=== PATIENT | female | born 1990 | race Caucasian/White ===

== ENCOUNTER 2023-01-17 10:35 | Outpatient (OUT) | payer OTHER, SELFPAY ==
--- NOTE | 2023-01-17 10:27 | ECG_ITS ---
[facility] Test Date: 2023-01-17 Pat Name: Ashly Mehta Department: Room: - Gender: Female Global Mobility Specialist: : 1990 Requested By: TOBIAS BARBA Order Number: [id number] Reading MD: GERRY ARENAS Measurements Intervals [place] Rate: 94 P: 29 CA: 158 QRS: 9 QRSD: 87 T: 30 QT: 350 QTc: 439 Interpretive Statements SINUS RHYTHM MODERATE VOLTAGE CRITERIA FOR LVH, CONSIDER NORMAL VARIANT [MEETS CRITERIA IN ONE OF: R(aVL), S(V1), R(V5), R(V5/V6)+S(V1)] NONSPECIFIC T-WAVE ABNORMALITY No previous ECG available for comparison Electronically Signed On 01-18-2023 15:39:31 EDT by GERRY ARENAS
== END 2023-01-17 10:36 ==
PROVIDERS: PCP Family Medicine; Visit Provider Obstetrics & Gynecology
DX: Z01.810 Encounter for preprocedural cardiovascular examination (principal); N92.0 Excessive and frequent menstruation with regular cycle; E28.2 Polycystic ovarian syndrome; N93.9 Abnormal uterine and vaginal bleeding, unspecified
CPT/HCPCS: 93005

== ENCOUNTER 2023-01-31 06:08 | Day surgery (SDC) | payer OTHER, SELFPAY ==
[2023-01-17 10:56] VITALS: BP 138/82; PULSE 105; RESP 20; TEMP 36.6; O2SAT 98; BMI 56.2
[2023-01-31] VITALS (9 sets, daily range): BP systolic 108–148; BP diastolic 53–90; PULSE 86–110; RESP 16–18; TEMP 35.7–37; O2SAT 93–98; BMI 56.1
[2023-01-31 06:21] LABS: Basophils Absolute Auto 0.1 10^3/uL (0.0-0.1); Basophils Percent Auto 0.7 % (0.2-2.0); Eosinophils Absolute Auto 0.2 10^3/uL (0.0-0.7); Hematocrit 35.9 % (36.0-48.0); Hemoglobin 11.1 g/dL (12.0-16.0); Immature Granulocytes Abs Auto 0.02 10^3/uL (0.00-0.03); Immature Granulocytes Pct Auto 0.2 % (0.0-0.5); Lymphocytes Absolute Auto 3.3 10^3/uL (1.2-3.8); Lymphocytes Percent Auto 41.3 % (20.5-60.0); Mean Corpuscular HGB Conc 30.9 g/dL (29.9-35.2); Mean Corpuscular Hemoglobin 26.2 pg (26.7-34.0); Mean Corpuscular Volume 84.7 fL (81.0-99.0); Mean Platelet Volume 9.5 fL (9.5-13.5); Monocytes Absolute Auto 0.4 10^3/uL (0.3-0.8); Monocytes Percent Auto 5.5 % (1.7-12.0); Neutrophils Absolute Auto 4.1 10^3/uL (1.4-6.5); Neutrophils Percent Auto 50.3 % (43.0-75.0); Platelet Count 277 10^3/uL (150-450); Red Blood Count 4.24 10^6/uL (4.20-5.40); Red Cell Distribution Width 13.3 % (11.0-15.0); White Blood Count 8.1 10^3/uL (4.0-11.0)
[2023-01-31 06:48] LABS: HCG Quantitative <1 mIU/mL
--- NOTE | 2023-01-31 13:37 | OP_ITS ---
OPERATION DATE: ??01/31/2023 PROCEDURE:? D&C hysteroscopy with Myosure. PREOPERATIVE DIAGNOSIS:? Menorrhagia. POSTOPERATIVE DIAGNOSIS:? Menorrhagia. ANESTHESIA:? General. SURGEON:? Marko Oscar D.O. DISTANCE LEARNING ADMINISTRATOR:? None. FINDINGS:? Fluffy appearing endometrium.? No gross evidence of polyps, fibroids or malignancy.? SPECIMEN:? Endometrial curettings. PROCEDURE:? The patient was taken back to the Operating Room where she was prepped and draped in normal sterile fashion after being placed under general anesthesia without difficulty. She was also placed in the dorsal lithotomy position. A weighted speculum was placed in the patient's vagina. The anterior lip of the cervix was identified and grasped with a single tooth tenaculum. The patient's uterus was then sounded roughly to 9 cm. The patient was then gently dilated using Hegar dilators. The hysteroscope was passed through the patient's cervix into the uterus. Both ostia were identified. Slightlythickened appearing endometrium. No gross evidence of malignancy. Please note that the MyoSure apparatus was placed through the hysteroscope under direct visualization. The apparatus was engaged and endometrial curettings were removed under direct visualization. The MyoSure was then removed from the scope. The hysteroscope was then removed from the patient's uterus. The endometrial curettings were sent out to pathology. The single tooth tenaculum was then removed from the patient's anterior lip of the cervix where excellent hemostasis was noted. All instruments were removed from the patient's vagina. The patient tolerated the procedure well. Sponge, lap and needle counts were correct times two. The patient was taken to the Recovery Room in stable condition. [facility]
== END 2023-01-31 09:34 | disposition home or self-care (01) ==
PROVIDERS: PCP Family Medicine; Visit Provider Obstetrics & Gynecology
PROC: (CPT 58558; principal; 2023-01-31 07:30)
DX: N85.02 Endometrial intraepithelial neoplasia [EIN] (principal); N92.0 Excessive and frequent menstruation with regular cycle; N93.9 Abnormal uterine and vaginal bleeding, unspecified; E28.2 Polycystic ovarian syndrome; J45.909 Unspecified asthma, uncomplicated; I10 Essential (primary) hypertension; G40.909 Epilepsy, unspecified, not intractable, without status epilepticus; F41.9 Anxiety disorder, unspecified; R73.03 Prediabetes; E66.01 Morbid (severe) obesity due to excess calories; Z68.43 Body mass index [BMI] 50.0-59.9, adult; Z79.899 Other long term (current) drug therapy; Z79.84 Long term (current) use of oral hypoglycemic drugs
CPT/HCPCS: 58558; 36415; 84702; 85025; 88305; J2704

== ENCOUNTER 2023-06-25 07:14 | Outpatient (OUT) | payer OTHER, SELFPAY ==
--- NOTE | 2023-06-25 08:03 | PM.CN ---
Consult Note: HPI Data of Consult Patient: new to practice Requesting Physician: Vera Blanco NP Primary Care Provider: CHRIS LOPEZ Consult Narrative Reason for consult: establish care Narrative: Ashly Mehta a pleasant 32 year old female presents for evaluation and management of low back pain. Patient has noticed this low back pain since a fall at work in 2018 where she injured her ankle and had to wear a boot, noticed the pain started after she stopped wearing the boot. Today rating pain 2/10 in low back, is intermittent. Nate increased with pushing, pulling, standing, walking, activity, decreased with sleep sitting and lying down. No numbness tingling or weakness. Aleve PRN without relief, PT last over a year ago. Has tried chiropractor care without success. Currently on cymbalta 120mg qd, gabapentin 300mg BID, tylenol 1500mg BID-TID. cc:: CC: Vera Blanco NP Review of Systems ROS Status of ROS 10 or more systems reviewed and unremarkable except as noted in history and below Musculoskeletal Reports: back pain PFSH PFSH Medical History Abnormal uterine bleeding (AUB) ?N93.9 - Abnormal uterine and vaginal bleeding, unspecified (ICD-10) Anemia ?D64.9 - Anemia, unspecified (ICD-10) Anxiety ?F41.9 - Anxiety disorder, unspecified (ICD-10) Arthritis ?M19.90 - Unspecified osteoarthritis, unspecified site (ICD-10) Asthma ?J45.909 - Unspecified asthma, uncomplicated (ICD-10) Back pain ?M54.9 - Dorsalgia, unspecified (ICD-10) COVID-19 ?U07.1 - COVID-19 (ICD-10) Depression ?F32.A - Depression, unspecified (ICD-10) GERD (gastroesophageal reflux disease) ?K21.9 - Gastro-esophageal reflux disease without esophagitis (ICD-10) Herpes genitalia ?A60.00 - Herpesviral infection of urogenital system, unspecified (ICD-10) Hypertension ?I10 - Essential (primary) hypertension (ICD-10) Menorrhagia ?N92.0 - Excessive and frequent menstruation with regular cycle (ICD-10) Palpitations ?R00.2 - Palpitations (ICD-10) PCOS (polycystic ovarian syndrome) ?E28.2 - Polycystic ovarian syndrome (ICD-10) Prediabetes ?R73.03 - Prediabetes (ICD-10) Seizures ?R56.9 - Unspecified convulsions (ICD-10) Sleep apnea ?G47.30 - Sleep apnea, unspecified (ICD-10) Surgical History History of cholecystectomy ?Z90.49 - Acquired absence of other specified parts of digestive tract (ICD-10) History of colposcopy ?Z98.890 - Other specified postprocedural states (ICD-10) History of laparoscopy ?Z98.890 - Other specified postprocedural states (ICD-10) History of wisdom tooth extraction ?K08.409 - Partial loss of teeth, unspecified cause, unspecified class (ICD-10) Family History (Updated 01/17/23 @ 11:05 by Jackie Bassett NP) Other Family history of heart disease Family history of stroke Social History (Updated 01/17/23 @ 11:05 by Jackie Bassett NP) Within the past year, how often did you have a drink containing alcohol: monthly or less 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 Highest level of school completed/degree received: Associate degree: occupational, technical, vocational program Meds Home Medications and Allergies Home Medications Medication Instructions Recorded Confirmed Type albuterol sulfate 90 mcg/actuation 2 inh inhalation Q6H PRN shortness 01/17/23 01/31/23 History aerosol inhaler (ProAir HFA) of breath or wheezing duloxetine 30 mg capsule,delayed 120 mg PO QDAY 01/17/23 01/31/23 History release gabapentin 300 mg capsule 300 mg PO Q12H PRN pain 01/17/23 01/31/23 History lisinopril 20 mg tablet 20 mg PO DAILY 01/17/23 01/31/23 History metformin 500 mg tablet 500 mg PO BID 01/17/23 01/31/23 History Allergies Allergy/AdvReac Type Severity Reaction Status Date / Time amoxicillin Allergy Rash Verified 01/31/23 06:45 cefaclor Allergy Rash Verified 01/31/23 06:45 erythromycin base Allergy Hives Verified 01/31/23 06:45 Exam Constitutional Documenting provider has reviewed patient's vital signs: yes Common normals: no apparent distress, oriented x3, healthy appearing, alert and well nourished General appearance: cooperative HENMT Common normals: normocephalic, hearing grossly normal bilaterally and moist oral mucous membranes Head and scalp: normocephalic Eye Common normals: PERRL Pupil: PERRL Neck & C-Spine Common normals: full ROM General: normal visual inspection Chest Common normals: inspection of chest normal Respiratory Common normals: normal respiratory effort, no retractions and no use of accessory muscles Back & Pelvis Lumbar spine/lower back: ROM limited, pain with ROM and straight leg raise negative bilaterally Sacroiliac joints: SI joint(s) abnormal (bilateral marissa, thigh thrust) Other: bilateral facet loading, right worse than left pain over L4-5 L5-S1 facets Neuro Common normals: oriented x3, CN's II-XII intact bilaterally, moves all extremities, no focal motor deficits, no sensory deficits noted and deep tendon reflexes 2+ bilaterally Sensorium/orientation: alert Motor exam: strength 5/5 throughout and no movement abnormalities noted Psych Common normals: mental status grossly normal, thought process normal, cooperative, affect normal, speech normal and activity/motor behavior normal Speech: normal speech Thought process: normal thought process Results Additional Findings Additional findings: I have checked an OARRS report on this patient today and there are no aberrancies noted in the prescribing history.?? A drug screen was completed and reviewed within the last year, and if there has not been a drug screen completed we ordered one today to monitor higher risk, state monitored pain medication use. As part of providing excellent, safe, comprehensive care, the following was completed at our patient's visit: 1. A medication reconciliation and review to ensure accurate knowledge of current/active medications, including asking our patients to inform us about any [id number] medications or herbal remedies/nutritional supplements/alternative remedies. 2. A review to specifically ensure our patients have had annual screening for: elevated body mass index (BMI), tobacco use, screening for depression, and screening for unhealthy alcohol use. When screening is concerning, patients are provided with education and the specific recommendation to discuss the concerning health issue and treatment options with their primary care provider. Assessment and Plan Assessment and Plan (1) Lumbar spondylosis: Assessment and Plan: The patient has had over 3 months of moderate to severe low back pain with functional impairment and inadequate response to conservative care including NSAIDS (unless there are contraindication such as concurrent blood thinners), multiple oral or topical pain medications, and home exercise program/physical therapy.?Patient has completed >6 weeks of guided home exercise program and/or formal physical therapy program without relief of their symptoms.? I have reviewed the imaging of the lumbar spine and no red flags were identified.? The imaging reveals radiographic findings consistent with lumbar spondylosis The Oswestry Disability Index was completed, and the patient scored a 27%.? The patient noted the following:?? moderate to severe pain, pain with standing and walking, pain limiting heavy weights We discussed the risks and benefits of the procedure with the patient, and we are NOT planning on using sedation as outlined in the guidelines from Medicare unless there is a documented reason that sedation would be strongly recommended.?? ?The procedure will be completed with fluoroscopic guidance.? (2) Back pain: (3) GERD (gastroesophageal reflux disease): Assessment and Plan: limit NSAIDs (4) Obesity: Assessment and Plan: The patient was counseled that proper dietary changes and consistent participation in a home exercise plan can lead to weight loss. Weight loss can help to improve functionality in patients with chronic pain.? (5) Encounter for medication monitoring: Plan based on physical exam and xray imaging bilateral L4-5 L5-S1 MBB x2 under fluoroscopy working towards thermal RFA UDS today ACCOUNTS PAYABLE CLERK reviewed and signed continue HEP f/u 1 week after injection
== END 2023-06-25 07:15 | disposition home or self-care (01) ==
PROVIDERS: PCP Nurse Practitioner Family; Visit Provider Nurse Practitioner
DX: M47.816 Spondylosis without myelopathy or radiculopathy, lumbar region (principal); M54.9 Dorsalgia, unspecified; K21.9 Gastro-esophageal reflux disease without esophagitis; E66.9 Obesity, unspecified; Z51.81 Encounter for therapeutic drug level monitoring
CPT/HCPCS: G0463

== ENCOUNTER 2023-07-21 08:14 | Day surgery (SDC) | payer OTHER, SELFPAY ==
[2023-07-21 08:41] LABS: HCG Qualitative NEGATIVE (NEGATIVE)
[2023-07-21 09:10] VITALS: BP 139/82; PULSE 92; RESP 16; TEMP 36.7; O2SAT 98
[2023-07-21 09:17] LABS: Glucometer 100 mg/dL (74-106)
[2023-07-21 10:04] VITALS: BP 189/97; PULSE 94; RESP 18; O2SAT 97
[2023-07-21 10:05] VITALS: BP 118/56; PULSE 86; RESP 18; O2SAT 97
[2023-07-21] MEDS: LIDOCAINE HCL 2% PF 100 MG/5 ML VIAL 2 ML INJ (10:07)
[2023-07-21] MEDS: BUPIVACAINE HCL 0.25% PF 25 MG/10 ML VIAL 8 ML INJ (10:07)
--- NOTE | 2023-07-21 10:07 | W.PM.PROCNOT ---
Date of procedure: 07/21/23 Pre-op diagnosis: Lumbar spondylosis Post-op diagnosis: same as pre-op Procedure: Procedure: Bilateral L4-5, L5-S1 medial branch block Medications: Bupivacaine 0.25% 5cc The patient was seen and examined in the preoperative holding area.? An informed consent was obtained and placed on the chart.? The patient was brought to the medical procedure unit and placed in the prone position.? A timeout was completed verifying correct patient, procedure site, positioning, plan, and special equipment.? Using aseptic technique, the needle was placed at left L4. Under direct fluoroscopic visualization a Quincke-tipped spinal needle was advanced to the junction of the superior articulating process with the transverse process at the designated medial branch segment.? Preceded by negative aspiration, the above-mentioned injectate was placed in 1 mL aliquots.? The procedure was repeated at left L5, S1.? The needle was removed and insertion site was covered. The same procedure, at the same levels, was completed on the right side. The patient was taken to the postprocedural recovery area and monitored for an appropriate length of time before found suitable for discharge in the company of a responsible adult. Anesthesia: Local Surgeon: Bud Combs Pathology: none sent Condition: stable Disposition: no change
== END 2023-07-21 10:11 | disposition home or self-care (01) ==
PROVIDERS: PCP Nurse Practitioner Family; Visit Provider Anesthesiology
DX: M47.816 Spondylosis without myelopathy or radiculopathy, lumbar region (principal)
CPT/HCPCS: 36415; 64493; 64494; 84703

== ENCOUNTER 2023-08-14 11:10 | Outpatient (OUT) | payer OTHER, SELFPAY ==
--- OUTSIDE RECORDS SUMMARY | 2023-08-14 11:29 | XMS_ITS | CCD ---
Author Name Unknown Address [address] [facility] [address] [place] [address] Organization [facility] Care Team Providers Care Checkerer Hand Name Role Phone BRENT KINNEY Referring Unavailable BRENT KINNEY Attending Unavailable BRENT KINNEY Admitting Unavailable Oma Michelle Unavailable VIOLA, DR NUR Consulting Unavailable THATCHER, DR NUR Admitting Unavailable THATCHER, DR NUR Primary Care Unavailable THATCHER, DR NUR Attending Unavailable ZIEBER, DR SUGEY Ibrahim Consulting Unavailable FREDA ., DR COLLADO Admitting Unavailable HOUSE, DR NUR Primary Care Unavailable FREDA ., DR COLLADO Attending Unavailable FREDA ., DR COLLADO Consulting Unavailable THATCHER, DR NUR Consulting Unavailable THATCHER, DR NUR Primary Care Unavailable HOUSE, DR NUR Admitting Unavailable HOUSE, DR NUR Attending Unavailable FREDA ., DR COLLADO Admitting Unavailable HOUSE, DR NUR Primary Care Unavailable FREDA ., DR COLLADO Attending Unavailable FREDA ., DR COLLADO Consulting Unavailable ZIEBER, DR SUGEY Ibrahim Consulting Unavailable FREDA ., DR COLLADO Admitting Unavailable HOUSE, DR NUR Primary Care Unavailable FREDA ., DR COLLADO Attending Unavailable FREDA ., DR COLLADO Consulting Unavailable HOUSE, DR NUR Primary Care Unavailable FREDA ., DR COLLADO Attending Unavailable FREDA ., DR COLLADO Consulting Unavailable FREDA ., DR COLLADO Admitting Unavailable Casandra Hassan Unavailable Nely Cruz Unavailable Celio Mullins Unavailable Manisha Marc Unavailable [phone] ROSITA Marc Primary Care Provider ROSITA Marc Attending Provider [phone] DO Celio Mullins Attending Provider [phone] MELA ANDERSON Attending Unavailable Manisha Marc Primary Care Unavailable Celio Mullins Admitting Unavailable Celio Mullins Attending Unavailable Manisha Marc Primary Care Unavailable Edward Gilmore Admitting Unavailab le Edward Gilmore Attending Unavailab le Manisha Marc Admitting Unavailable Manisha Marc Primary Care Unavailable Manisha Marc Attending Unavailable Manisha Marc Primary Care Unavailable Celio Mullins Admitting Unavailable Celio Mullins Attending Unavailable Garret CROWLEY, Bud Denis Attending Unavailable Allergies Allergy Classification Reported Allergen(s) Allergy Type Date of Onset Reaction(s) Facility (20 sources) Amoxicillin; Translations: [AMOXICILLIN] Drug Allergy 07-08-20 16 rash [facility] Repository (3 sources) Cefaclor; Translations: [CEFACLOR] Drug Allergy 04-14-20 15 Unknown Reaction [facility] Repository (17 sources) Erythromycin; Translations: [ERYTHROMYCIN] Drug Allergy 04-14-20 15 hives [facility] Repository (17 sources) Cefaclor; Translations: [Ceclor] Drug Allergy 04-17-20 [address] [facility] Repository (2 sources) Erythromycin Drug Allergy 04-17-20 15 Unknown Reaction [facility] Repository (2 sources) Cephalosporins (Antibiotic); Translations: [Cephalosporins] Allergy to substance 12-10-19 Unknown Reaction [facility] (2 sources) Lactulose; Translations: [lactulose] Drug Allergy 02-12-20 Unknown Reaction [facility] (1 source) Erythromycin Drug Allergy 02-12-20 [facility] Repository Medications Current Medications Medication Drug Class(es) Dates Sig (Normalized) Sig (Original) [id number] 200 actuat albuterol 0.09 mg/actuat metered dose inhaler (20 sources) beta2-Adrenergic Agonist Start: 06-29-2023 take 2 puff(s) by inhalation four times daily as needed Albuterol Sulfate HFA 108 (90 Base) MCG/ACT 2 puffs Inhalation 4 times a day prn Jun, Active Start: 06-29-2023 take 2 puff(s) by in halation four times daily as needed Albuterol Sulfate HFA 108 (90 Base) MCG/ACT 2 puffs Inhalation 4 times a day prn Jun, Not-Taking Start: 06-17-2021 take 2 puff(s) by in halation four times daily as needed Albuterol Sulfate HFA 108 (90 Base) MCG/ACT 2 puffs Inhalation qid prn May, Active Start: 02-12-2020 take 1 puff(s) by in halation every six hours Albuterol Sulfate Active 2 PUFF INHALATION Q6H February 11, 2020 11:00pm take 1 puff(s) by in halation every four hours as needed Ventolin HFA 108 (90 Base) MCG/ACT 1 puff as needed Inhalation every 4 hrs Active doxycycline hyclate 100 mg oral tablet (3 sources) Tetracycline-class Drug Start: 06-29-2023 take 1 tablet by mouth every twelve hours Doxycycline Hyclate 100 MG 1 tablet Orally Twice a day for 10 day(s) Jun, Active DULoxetine 30 mg delayed release oral capsule (17 sources) Serotonin and Norepinephrine Reuptake Inhibitor Start: 02-17-2020 take 90 mg by mouth once daily at bedtime Duloxetine Active 90 MG PO Daily at bedtime 90 February 16, 2020 11:00pm take 2 capsules by m outh every twenty-four hours Cymbalta 60 MG 2 capsule Orally Once a day for 90 days Active Cymbalta Active fluticasone propionate 0.05 mg/actuat metered dose nasal spray (3 sources) Corticosteroid Start: 06-29-2023 take 2 spray(s) nasal route once daily Fluticasone Propionate 50 MCG/ACT 2 sprays Nasally Once a day for 14 day(s) Jun, Active gabapentin 300 mg oral capsule (11 sources) Anti-epileptic Agent Start: 02-12-2020 take 300 mg by mouth three times daily Gabapentin Active 300 MG PO Three times daily February 11, 2020 11:00pm take 1 capsule by mo ut once daily as needed Gabapentin 300 MG 1 capsule Orally Once a day PRN for 30 days PRN Active hydrOXYzine pamoate 25 mg oral capsule (16 sources) Antihistamine Start: 12-07-2021 take 25 mg by mouth three times daily Hydroxyzine Pamoate Active 25 MG PO Three times daily December 06, 2021 11:00pm Vistaril 25 MG 1 Capsule prn Orally 2-3 times per day Active take 1 capsule by mouth every ei ght hours Vistaril 25 MG 1 capsule as needed Orally every 8 hrs Not-Taking lisinopril 20 mg oral tablet (17 sources) Angiotensin Converting Enzyme Inhibitor Start: 12-07-2021 take 20 mg by mouth once daily Lisinopril Active 20 MG PO Daily December 06, 2021 11:00pm Lisinopril Activ e melatonin 10 mg extended release oral tablet (10 sources) take 1 tablet by miranda th once daily at bedtime as needed Melatonin 10 MG 1 tablet at bedtime as needed Orally Once Daily PRN Active Melatonin PRN Ac tive metFORMIN hydrochloride 500 mg oral tablet (12 sources) Biguanide Start: 02-12-2020 take 500 mg by mouth twice daily Metformin Active 500 MG PO Twice daily February 11, 2020 11:00pm Metformin & Diet Manage Prod (5 sources) Metformin & Diet Manage Prod Active Multivitamin preparation (11 sources) Start: 12-07-2021 take 1 tablet by mouth once daily Multivitamin Active 1 TAB PO Daily December 06, 2021 11:00pm Multivitamin Act rafal nitrofurantoin, macrocrystals 25 mg / nitrofurantoin, monohydrate 75 mg oral capsule (1 source) Nitrofuran Antibacterial Start: 05-31-2021 take 1 capsule by mouth every twelve hours Macrobid 100 MG 1 cap(s) Orally bid for 5 day(s) May, Active ondansetron 4 mg oral tablet (2 sources) Serotonin-3 Receptor Antagonist Start: 07-07-2023 take 1 tablet by mouth three times daily as needed Zofran 4 MG 1 tablet Orally tid prn ODT Jun, Active phenazopyridine hydrochloride 200 mg oral tablet (1 source) Start: 05-31-2021 take 1 tablet by mouth every eight hours Pyridium 200 MG 1 tablet after meals Orally Three times a day for 2 day(s) May, Active valACYclovir 1000 mg oral tablet (17 sources) Herpesvirus Nucleoside Analog DNA Polymerase Inhibitor, Herpes Simplex Virus Nucleoside Analog DNA Polymerase Inhibitor, Herpes Zoster Virus Nucleoside Analog DNA Polymerase Inhibitor Start: 02-12-2020 Valacyclovir (Valtrex) 1 gram tablet Active 1000 MG PO Daily February 11, 2020 11:00pm Start: 02-12-2020 End: 02-12-2020 take 1 mg by mouth once daily Valacyclovir Discontinue d 1 MG PO Daily February 11, 2020 11:00pm February 12, 2020 7:16pm valACYclovir HCl 1 GM TAKE 1 TABLET BY MOUTH TWICE DAILY FOR 10 DAYS (IN THE MORNING AND BEFORE BEDTIME) Oral for 10 Days PRN Active take 1 tablet by miranda th every twenty-four hours valACYclovir HCl 500 MG 1 tablet Orally Once a day Not-Taking Completed/Discontinued Medications Medication Drug Class(es) Dates Sig (Normalized) Sig (Original) ARIPiprazole 5 mg oral tablet (3 sources) Atypical Antipsychotic Start: 03-05-2020 End: 12-07-2021 take 5 mg by mouth once daily Aripiprazole Discontinued 5 MG PO Daily March 04, 2020 11:00pm December 07, 2021 9:45am Abilify Not-Taki ng [place] Active 24 hr buPROPion hydrochloride 150 mg extended release oral tablet (1 source) Aminoketone Start: 02-12-2020 End: 02-17-2020 take 150 mg by mouth once daily Bupropion Hcl Discontinued 150 MG PO Daily February 11, 2020 11:00pm February 17, 2020 10:57am citalopram 40 mg oral tablet (2 sources) Serotonin Reuptake Inhibitor Start: 02-12-2020 End: 02-17-2020 take 40 mg by mouth once daily Citalopram Discontinued 40 MG PO Daily February 11, 2020 11:00pm February 17, 2020 10:57am Start: 02-12-2020 End: 02-12-2020 Citalopram Discontinued MG T ABLET February 11, 2020 11:00pm February 12, 2020 7:18pm Ketorolac (13 sources) Nonsteroidal Anti-inflammatory Drug, Cyclooxygenase Inhibitor Start: 08-03-2018 Toradol per 15 mg Jul, 60 mg 24 hr metoprolol succinate 50 mg extended release oral tablet (1 source) beta-Adrenergic Ann Start: 02-12-2020 End: 12-07-2021 take 50 mg by mouth once daily Metoprolol Succinate Discontinued 50 MG PO Daily February 11, 2020 11:00pm December 07, 2021 9:46am predniSONE 20 mg oral tablet (5 sources) Start: 06-29-2023 take 1 tablet by mouth every twelve hours predniSONE 20 MG 1 tablet Orally bid for 5 day(s) Jun, Not-Taking Start: 06-17-2021 take 1 tablet by miranda th every twelve hours predniSONE 20 MG 1 tablet Orally bid for 5 day(s) May, Active Problems Active Problems Problem Classification Problem Date Documented Da te Episodic/Chronic Administrative/social admission (5 sources) Dietary counseling and surveillance; Translations: [Other specified counseling] Episodic Anxiety disorders (12 sources) Anxiety; Translations: [Anxiety disorder, unspecified] Chronic Asthma (20 sources) Exacerbation of intermittent asthma; Translations: [Mild intermittent asthma with (acute) exacerbation] Chronic Chronic obstructive pulmonary disease and bronchiectasis (5 sources) Acute exacerbation of chronic bronchitis; Translations: [Bronchitis, chronic with acute exacerbation] Chronic Chronic obstructive pulmonary disease and bronchiectasis (1 source) Bronchitis, not specified as acute or chronic Episodic Diabetes mellitus without complication (1 source) Impaired fasting glucose Episodic Epilepsy; convulsions (8 sources) Seizure disorder; Translations: [Epilepsy, unspecified, not intractable, without status epilepticus] Chronic Essential hypertension (15 sources) Essential hypertension; Translations: [Essential (primary) hypertension] Onset: 07-01-2023 Chronic Headache; including migraine (20 sources) Refractory migraine without aura; Translations: [Migraine without aura, intractable, without status migrainosus] Chronic Immunizations and screening for infectious disease (7 sources) Contact with and (suspected) exposure to other viral communicable diseases; Translations: [Encounter for screening for human papillomavirus (HPV)] Onset: 06-17-2021 Resolved: 07-06-2021 Episodic Menstrual disorders (9 sources) Amenorrhea; Translations: [Amenorrhea, unspecified] Onset: 03-07-2022 Chronic Mood disorders (20 sources) Recurrent major depression in partial remission; Translations: [Major depressive disorder, recurrent, in partial remission] Chronic Nausea and vomiting (1 source) Nausea with vomiting, unspecified Episodic Other endocrine disorders (11 sources) Polycystic ovary syndrome; Translations: [Polycystic ovarian syndrome] Chronic Other endocrine disorders (4 sources) Polycystic ovarian syndrome; Translations: [Polycystic ovarian syndrome] Onset: 07-03-2023 Chronic Other female genital disorders (4 sources) Abnormal uterine and vaginal bleeding, unspecified; Translations: [ABNORMAL UTERINE VAGINAL BLEED UNS] Onset: 11-26-2022 Chronic Other gastrointestinal disorders (1 source) Diarrhea, unspecified Episodic Other nervous system disorders (11 sources) Chronic pain; Translations: [Other chronic pain] Chronic Other nervous system disorders (1 source) Other chronic pain Chronic Other nervous system disorders (5 sources) Paresthesia of skin; Translations: [Paresthesia of both hands] Episodic Other nutritional; endocrine; and metabolic disorders (11 sources) Body mass index 30+ - obesity; Translations: [Body mass index (BMI) 33.0-33.9, adult] Chronic Other nutritional; endocrine; and metabolic disorders (10 sources) Morbid obesity; Translations: [Morbid (severe) obesity due to excess calories] Chronic Other nutritional; endocrine; and metabolic disorders (9 sources) Insulin resistance; Translations: [Metabolic syndrome] Chronic Other nutritional; endocrine; and metabolic disorders (3 sources) Morbid (severe) obesity due to excess calories; Translations: [Morbid (severe) obesity due to excess calories] Onset: 07-01-2023 Chronic Other nutritional; endocrine; and metabolic disorders (2 sources) Metabolic syndrome; Translations: [Insulin resistance] Chronic Other nutritional; endocrine; and metabolic disorders (14 sources) Body mass index 40+ - severely obese; Translations: [Body mass index (BMI) 40.0-44.9, adult] Chronic Other nutritional; endocrine; and metabolic disorders (14 sources) Obesity; Translations: [Obesity, unspecified] Chronic Other nutritional; endocrine; and metabolic disorders (3 sources) Obesity, unspecified; Translations: [Obesity, unspecified classification, unspecified obesity type, unspecified whether serious comorbidity present] Chronic Other nutritional; endocrine; and metabolic disorders (2 sources) Body mass index (BMI) 50.0-59.9, adult; Translations: [BMI 50.0-59.9, adult] Chronic Other nutritional; endocrine; and metabolic disorders (1 source) Body mass index (BMI) 40.0-44.9, adult; Translations: [BMI 40.0-44.9, adult] Chronic Other screening for suspected conditions (not mental disorders or infectious disease) (4 sources) Encounter for screening for malignant neoplasm of cervix; Translations: [ENC SCREENING MALIG NEOPLASM CERV] Onset: 10-28-2022 Episodic Other upper respiratory infections (4 sources) Acute upper respiratory infection, unspecified; Translations: [Acute pharyngitis, unspecified] Onset: 06-17-2021 Resolved: 06-17-2021 Episodic Spondylosis; intervertebral disc disorders; other back problems (10 sources) Sacroiliitis, not elsewhere classified; Translations: [Other intervertebral disc degeneration, lumbar region] Onset: 11-08-2022 Chronic Unclassified (1 source) Dietary counseling and surveillance; Translations: [Dietary counseling and surveillance] Onset: 07-15-2023 Viral infection (1 source) Viral infection, unspecified Episodic Past or Other Problems Problem Classification Problem Date Documented Da te Episodic/Chronic Genitourinary symptoms and ill-defined conditions (2 sources) Dysuria; Translations: [Hematuria, unspecified] Onset: 05-31-2021 Resolved: 05-31-2021 Episodic Other lower respiratory disease (1 source) Personal history of other diseases of the respiratory system; Translations: [History of asthma Z87.09] Onset: 06-17-2021 Resolved: 06-17-2021 Episodic Unclassified (3 sources) Contact with and (suspected) exposure to covid-19 Z20.822 Unclassified (1 source) Low back pain, unspecified M54.50 Urinary tract infections (1 source) Urinary tract infection, site not specified; Translations: [Urinary tract infection, site not specified N39.0] Onset: 05-31-2021 Resolved: 05-31-2021 Episodic Viral infection (1 source) COVID-19 Onset: 07-06-2021 Resolved: 07-06-2021 Results Test Name Value Interpretation Reference Range Facility COVID + FLU Quick Testingon 07-07-2023 SARS-CoV-2 (COVID-19) RNA SURI+probe Ql (Unsp spec) Negative [facility] Other COVID + FLU Quick Testing Negative [facility] Other Alanine aminotransferase [En zymatic activity/volume] in Serum or PlasmaOrdered By: Celio Mullins on 07-03-2023 ALT [Catalytic activity/Vol] 22 U/L 7-52 [facility] Albumin [Mass/volume] in Ser um or Plasma by Bromocresol green (BCG) dye binding methoOrdered By: Celio Mullins on 07-03-2023 Albumin BCG dye [Mass/Vol] 4.4 g/dL 3.5-5.7 [facility] Alkaline phosphatase [Enzyma tic activity/volume] in Serum or PlasmaOrdered By: Celio Mullins on 07-03-2023 ALP [Catalytic activity/Vol] 68 U/L 34-104 [facility] Aspartate aminotransferase [ Enzymatic activity/volume] in Serum or PlasmaOrdered By: Celio Mullins on 07-03-2023 AST [Catalytic activity/Vol] 18 U/L 13-39 [facility] Bilirubin.total [Mass/volume ] in Serum or PlasmaOrdered By: Celio Mullins on 07-03-2023 Bilirubin [Mass/Vol] 0.4 mg/dL 0.3-1.[address] [facility] Calcium [Mass/volume] in Ser um or PlasmaOrdered By: Celio Mullins on 07-03-2023 Calcium [Mass/Vol] 9.4 mg/dL 8.6-10.3 [facility] Carbon dioxide, total [Moles /volume] in Serum or PlasmaOrdered By: Celio Mullins on 07-03-2023 CO2 [Moles/Vol] 30.1 mmol/L 21.0-31.0 [facility] Chloride [Moles/volume] in S marta or PlasmaOrdered By: Celio Mullins on 07-03-2023 Chloride [Moles/Vol] 105 mmol/L 98-[address] [facility] Cholesterol [Mass/volume] in Serum or PlasmaOrdered By: Celio Mullins on 07-03-2023 Cholesterol [Mass/Vol] 126 mg/dL 140-200 [facility] Comment on above: Chol less than 200 m g/dl low riskChol 201-239 mg/dl borderline riskChol 240 mg/dl and greater high risk Cholesterol in LDL Calc [Mas s/Vol]Ordered By: Celio Mullins on 07-03-2023 Cholesterol in LDL [Mass/Vol] 69 mg/dL 0-100 [facility] Comment on above: LDL ATP III CLASSIFI CATIONLDL less than 100 mg/dL OptimalLDL 100-129 mg/dL Near or above optimalLDL 130-159 mg/dL Borderline highLDL 160-189 mg/dL HighLDL greater than 189 mg/dL Very high Cholesterol in VLDL Calc [Ma ss/Vol]Ordered By: Celio Mullins on 07-03-2023 Cholesterol in VLDL [Mass/Vol] 18 mg/dL [facility] Comprehensive Metabolic Pane landon 07-03-2023 Albumin [Mass/Vol] 4.4 g/dL Normal 3.5-5.7 [facility] Comment on above: Performed By: #### L IPID, CMP #### [facility] [address] Albumin/Globulin [Mass ratio] 1.4 {ratio} Normal [facility] Comment on above: Performed By: #### L IPID, CMP #### [address] ALP [Catalytic activity/Vol] 68 U/L Normal 34-104 [facility] Comment on above: Performed By: #### L IPID, CMP #### [address] ALT [Catalytic activity/Vol] 22 U/L Normal 7-52 [facility] Comment on above: Performed By: #### L IPID, CMP #### [address] Anion gap [Moles/Vol] 10.2 mmol/L Normal 6.0-15.0 [facility] Comment on above: Performed By: #### L IPID, CMP #### [facility] [address] AST [Catalytic activity/Vol] 18 U/L Normal 13-39 [facility] Comment on above: Performed By: #### L IPID, CMP #### [facility] [address] [place] [address] [place] Bilirubin [Mass/Vol] 0.4 mg/dL Normal 0.3-1.[address] [facility] Comment on above: Performed By: #### L IPID, CMP #### [facility] [address] [place] [address] [place] Calcium [Mass/Vol] 9.4 mg/dL Normal 8.6-10.3 [facility] Comment on above: Performed By: #### L IPID, CMP #### [facility] [address] Chloride [Moles/Vol] 105 mmol/L Normal 98-[address] [facility] Comment on above: Performed By: #### L IPID, CMP #### [facility] [address] CO2 [Moles/Vol] 30.1 mmol/L Normal 21.0-31.0 [facility] Comment on above: Performed By: #### L IPID, CMP #### [address] Creatinine [Mass/Vol] 0.63 mg/dL Normal 0.60-1.20 [facility] Comment on above: Performed By: #### L IPID, CMP #### [place] [address] [place] GFR/1.73 sq M.predicted MDRD (S/P/Bld) [Vol rate/Area] mL/min/{1.73_m2} Normal [facility] Comment on above: Performed By: #### L IPID, CMP #### [address] Globulin (S) [Mass/Vol] 3.1 g/dL Normal [facility] Comment on above: Performed By: #### L IPID, CMP #### [address] Glucose [Mass/Vol] 97 mg/dL Normal 70-100 [facility] Comment on above: Result Comment: [place] Glucose Reference Range is dependent on time and content of last meal. Glucose of more than 200 mg/dL in a nonstressed, ambulatory subject supports the diagnosis of Diabetes Mellitus. ADA recommended reference range Performed By: #### L IPID, CMP #### [address] Potassium [Moles/Vol] 4.3 mmol/L Normal 3.5-5.1 [facility] Comment on above: Performed By: #### L IPID, CMP #### [facility] [address] [place] [address] [place] Protein [Mass/Vol] 7.5 g/dL Normal 6.4-8.9 [facility] Comment on above: Performed By: #### L IPID, CMP #### [facility] [address] [place] [address] [place] Sodium [Moles/Vol] 141 mmol/L Normal 136-145 [facility] Comment on above: Performed By: #### L IPID, CMP #### [facility] [address] Urea nitrogen [Mass/Vol] 13 mg/dL Normal 7-25 [facility] Comment on above: Performed By: #### L IPID, CMP #### [facility] [address] Creatinine [Mass/volume] in Serum or PlasmaOrdered By: Celio Mullins on 07-03-2023 Creatinine [Mass/Vol] 0.63 mg/dL 0.60-1.20 [facility] Globulin Calc (S) [Mass/Vol] Ordered By: Celio Mullins on 07-03-2023 Globulin (S) [Mass/Vol] 3.1 g/dL [facility] Glucose [Mass/volume] in Ser um or PlasmaOrdered By: Celio Mullins on 07-03-2023 Glucose [Mass/Vol] 97 mg/dL 70-100 [facility] Comment on above: ADA recommended refe rence rangeRandom Glucose Reference Range is dependent on time and content of last meal. Glucose of more than 200 mg/dL in a nonstressed, ambulatory subject supports the diagnosis of Diabetes Mellitus. Lipid Panelon 07-03-2023 Cholesterol [Mass/Vol] 126 mg/dL Low 140-200 [facility] Comment on above: Result Comment: Chol less than 200 mg/dl low risk Chol 201-239 mg/dl borderline risk Chol 240 mg/dl and greater high risk Performed By: #### L IPID, CMP #### [facility] [address] Cholesterol in HDL [Mass/Vol] 39 mg/dL Normal 23-92 [facility] Comment on above: Result Comment: HDL CHOL ATP-III CLASSIFICATION Cardiovascular Risk HDL > or equal to 60 mg/dL LOW HDL < 40 mg/dL HIGH Performed By: #### L IPID, CMP #### [facility] [address] Cholesterol.total/Mali sterol in HDL [Mass ratio] 3.2 {ratio} Normal <5.0 [facility] Comment on above: Result Comment: PERF ORMED BY: [place] [address] PATHOLOGIST [employer] NESHA MAIER M.D. Performed By: #### L IPID, CMP #### [address] LDL Cholesterol,Calculated 69 mg/dL Normal 0-100 [facility] Comment on above: Result Comment: LDL ATP III CLASSIFICATION LDL less than 100 mg/dL Optimal LDL 100-129 mg/dL Near or above optimal LDL 130-159 mg/dL Borderline high LDL 160-189 mg/dL High LDL greater than 189 mg/dL Very high Performed By: #### L IPID, CMP #### [address] Triglyceride w/Reflex 92 mg/dL Normal 0-149 [facility] Comment on above: Result Comment: TRIG ATP III CLASSIFICATION TRIG less than 150 mg/dL Normal TRIG 150-199 mg/dL Borderline high TRIG 200-500 mg/dL High TRIG greater than 500 mg/dL Very high Standard traceable to the Center for Disease Conrtrol and Prevention (CDC) test method. Performed By: #### L IPID, CMP #### [facility] [address] VLDL CHOLESTEROL 18 mg/dL Normal [facility] Comment on above: Performed By: #### L IPID, CMP #### [address] No Panel InformationOrdered By: Celio Mullins on 07-03-2023 Estimated GFR (CKD-EPI) > 60.0 mL/Min [facility] Creatinine Clearance (Chem N/A [facility] Potassium [Moles/volume] in Serum or PlasmaOrdered By: Celio Mullins on 07-03-2023 Potassium [Moles/Vol] 4.3 mmol/L 3.5-5.1 [facility] Protein [Mass/volume] in Ser um or PlasmaOrdered By: Celio Mullins on 07-03-2023 Protein [Mass/Vol] 7.5 g/dL 6.4-8.9 [facility] Serum or plasma albumin/glob ulin mass ratioOrdered By: Celio Mullins on 07-03-2023 Albumin/Globulin [Mass ratio] 1.4 {ratio} [facility] Serum or plasma anion gap de terminationOrdered By: Celio Mullins on 07-03-2023 Anion gap [Moles/Vol] 10.2 mmol/L 6.0-15.0 [facility] Serum or plasma high density lipoprotein (HDL) cholesterol measurementOrdered By: Celio Mullins on 07-03-2023 Cholesterol in HDL [Mass/Vol] 39 mg/dL 23-92 [facility] Comment on above: HDL CHOL ATP-III CLA SSIFICATION Cardiovascular RiskHDL > or equal to 60 mg/dL LOWHDL < 40 mg/dL HIGH Serum or plasma total choles terol/high density lipoprotein (HDL) cholesterol mass ratOrdered By: Celio Mullins on 07-03-2023 Cholesterol.total/Mali sterol in HDL [Mass ratio] 3.2 {ratio} <5.0 [facility] Sodium [Moles/volume] in Ser um or PlasmaOrdered By: Celio Mullins on 07-03-2023 Sodium [Moles/Vol] 141 mmol/L 136-145 [facility] Triglyceride [Mass/volume] i n Serum or PlasmaOrdered By: Celio Mullins on 07-03-2023 Triglyceride [Mass/Vol] 92 mg/dL 0-149 [facility] Comment on above: TRIG ATP III CLASSIF ICATIONTRIG less than 150 mg/dL NormalTRIG 150-199 mg/dL Borderline highTRIG 200-500 mg/dL High TRIG greater than 500 mg/dL Very highStandard traceable to the Center for Disease Conrtrol and Prevention (CDC) test method. Urea nitrogen [Mass/volume] in Serum or PlasmaOrdered By: Celio Mullins on 07-03-2023 Urea nitrogen [Mass/Vol] 13 mg/dL 03-11 [facility] A1C with Estimated Average G kathien 07-01-2023 Glucose [Mass/Vol] 117 mg/dL Normal [facility] Comment on above: Order Comment: Reaso n for Exam Severe obesity (BMI >= 40);PCOS (polycystic ovarian syndrome Result Comment: PERF ORMED BY: [place] [address] PATHOLOGIST STABLEHAND NESHA MAIER M.D. Performed By: #### A POB, LIPA #### [facility] , #### CMP, A1C WTH eA #### [facility] [address] [place] [address] HbA1c (Bld) [Mass fraction] 5.7 % High 4.3-5.6 [facility] Comment on above: Order Comment: Reaso n for Exam Severe obesity (BMI >= 40);PCOS (polycystic ovarian syndrome Result Comment: Incr eased risk for diabetes: 5.7 - 6.4 diabetes: >6.4 glycemic control for adults with diabetes: <7.0 Performed By: #### A POB, LIPA #### [facility] , #### CMP, A1C WTH eA #### [facility] [address] [place] [address] Alanine aminotransferase [En zymatic activity/volume] in Serum or PlasmaOrdered By: Celio Mullins on 07-01-2023 ALT [Catalytic activity/Vol] 21 U/L 7-52 [facility] Albumin [Mass/volume] in Ser um or Plasma by Bromocresol green (BCG) dye binding methoOrdered By: Celio Mullins on 07-01-2023 Albumin BCG dye [Mass/Vol] 4.6 g/dL 3.5-5.7 [facility] Alkaline phosphatase [Enzyma tic activity/volume] in Serum or PlasmaOrdered By: Celio Mullins on 07-01-2023 ALP [Catalytic activity/Vol] 72 U/L 34-104 [facility] Apolipoprotein Bon 3 Apolipoprotein B [Mass/Vol] 83 mg/dL Normal <90 [facility] Comment on above: Order Comment: Reaso n for Exam Severe obesity (BMI >= 40);PCOS (polycystic ovarian syndrome Result Comment: Hedy rable < 90 Borderline High 90 - 99 High 100 - 130 Very High >130 ASCVD RISK THERAPEUTIC TARGET CATEGORY APO B (mg/dL) Very High Risk <80 (if extreme risk <70) High Risk <90 Moderate Risk <90 Performed at: [facility] [address] [id number] [place] Hand: Jeanna Case MD, Phone: [phone] PERFORMED BY: [place] [address] PATHOLOGIST [employer]HAND NESHA MAIER M.D. Performed By: #### A POB, LIPA #### [facility] , #### CMP, A1C WTH eA #### [address] Aspartate aminotransferase [ Enzymatic activity/volume] in Serum or PlasmaOrdered By: Celio Mullins on 07-01-2023 AST [Catalytic activity/Vol] 19 U/L 13-39 [facility] Bilirubin.total [Mass/volume ] in Serum or PlasmaOrdered By: Celio Mullins on 07-01-2023 Bilirubin [Mass/Vol] 0.4 mg/dL 0.3-1.[address] [facility] Calcium [Mass/volume] in Ser um or PlasmaOrdered By: Celio Mullins on 07-01-2023 Calcium [Mass/Vol] 9.8 mg/dL 8.6-10.3 [facility] Carbon dioxide, total [Moles /volume] in Serum or PlasmaOrdered By: Celio Mullins on 07-01-2023 CO2 [Moles/Vol] 25.3 mmol/L 21.0-31.0 [facility] Chloride [Moles/volume] in S marta or PlasmaOrdered By: Celio Mullins on 07-01-2023 Chloride [Moles/Vol] 105 mmol/L 98-[address] [facility] Comprehensive Metabolic Pane landon 07-01-2023 Albumin [Mass/Vol] 4.6 g/dL Normal 3.5-5.7 [facility] Comment on above: Order Comment: Reaso n for Exam Severe obesity (BMI >= 40);PCOS (polycystic ovarian syndrome NON FASTING Performed By: #### A POB, LIPA #### [facility] , #### CMP, A1C WTH eA #### [facility] [address] [place] [address] Albumin/Globulin [Mass ratio] 1.4 {ratio} Normal [facility] Comment on above: Order Comment: Reaso n for Exam Severe obesity (BMI >= 40);PCOS (polycystic ovarian syndrome NON FASTING Performed By: #### A POB, LIPA #### [facility] , #### CMP, A1C WTH eA #### [facility] [address] [place] [address] ALP [Catalytic activity/Vol] 72 U/L Normal 34-104 [facility] Comment on above: Order Comment: Reaso n for Exam Severe obesity (BMI >= 40);PCOS (polycystic ovarian syndrome NON FASTING Result Comment: PERF ORMED BY: [place] [address] PATHOLOGIST ST[employer]HAND NESHA MAIER M.D. Performed By: #### A POB, LIPA #### [facility] , #### CMP, A1C WTH eA #### [facility] [address] [place] [address] ALT [Catalytic activity/Vol] 21 U/L Normal 7-52 [facility] Comment on above: Order Comment: Reaso n for Exam Severe obesity (BMI >= 40);PCOS (polycystic ovarian syndrome NON FASTING Performed By: #### A POB, LIPA #### [facility] , #### CMP, A1C WTH eA #### [facility] [address] Anion gap [Moles/Vol] 11.5 mmol/L Normal 6.0-15.0 [facility] Comment on above: Order Comment: Reaso n for Exam Severe obesity (BMI >= 40);PCOS (polycystic ovarian syndrome NON FASTING Performed By: #### A POB, LIPA #### [facility] , #### CMP, A1C WTH eA #### [address] AST [Catalytic activity/Vol] 19 U/L Normal 13-39 [facility] Comment on above: Order Comment: Reaso n for Exam Severe obesity (BMI >= 40);PCOS (polycystic ovarian syndrome NON FASTING Performed By: #### A POB, LIPA #### [facility] , #### CMP, A1C WTH eA #### [address] Bilirubin [Mass/Vol] 0.4 mg/dL Normal 0.3-1.[address] [facility] Comment on above: Order Comment: Reaso n for Exam Severe obesity (BMI >= 40);PCOS (polycystic ovarian syndrome NON FASTING Performed By: #### A POB, LIPA #### [facility] , #### CMP, A1C WTH eA #### [address] Calcium [Mass/Vol] 9.8 mg/dL Normal 8.6-10.3 [facility] Comment on above: Order Comment: Reaso n for Exam Severe obesity (BMI >= 40);PCOS (polycystic ovarian syndrome NON FASTING Performed By: #### A POB, LIPA #### [facility] , #### CMP, A1C WTH eA #### [address] Chloride [Moles/Vol] 105 mmol/L Normal 98-[address] [facility] Comment on above: Order Comment: Reaso n for Exam Severe obesity (BMI >= 40);PCOS (polycystic ovarian syndrome NON FASTING Performed By: #### A POB, LIPA #### [facility] , #### CMP, A1C WTH eA #### [facility] [address] CO2 [Moles/Vol] 25.3 mmol/L Normal 21.0-31.0 [facility] Comment on above: Order Comment: Reaso n for Exam Severe obesity (BMI >= 40);PCOS (polycystic ovarian syndrome NON FASTING Performed By: #### A POB, LIPA #### [facility] , #### CMP, A1C WTH eA #### [address] Creatinine [Mass/Vol] 0.64 mg/dL Normal 0.60-1.20 [facility] Comment on above: Order Comment: Reaso n for Exam Severe obesity (BMI >= 40);PCOS (polycystic ovarian syndrome NON FASTING Performed By: #### A POB, LIPA #### [facility] , #### CMP, A1C WTH eA #### [place] [address] [place] GFR/1.73 sq M.predicted MDRD (S/P/Bld) [Vol rate/Area] mL/min/{1.73_m2} Normal [facility] Comment on above: Order Comment: Reaso n for Exam Severe obesity (BMI >= 40);PCOS (polycystic ovarian syndrome NON FASTING Performed By: #### A POB, LIPA #### [facility] , #### CMP, A1C WTH eA #### [facility] [address] [place] [address] Globulin (S) [Mass/Vol] 3.2 g/dL Normal [facility] Comment on above: Order Comment: Reaso n for Exam Severe obesity (BMI >= 40);PCOS (polycystic ovarian syndrome NON FASTING Performed By: #### A POB, LIPA #### [facility] , #### CMP, A1C WTH eA #### [facility] [address] [place] [address] [place] Glucose [Mass/Vol] 95 mg/dL Normal 70-100 [facility] Comment on above: Order Comment: Reaso n for Exam Severe obesity (BMI >= 40);PCOS (polycystic ovarian syndrome NON FASTING Result Comment: [facility] Glucose Reference Range is dependent on time and content of last meal. Glucose of more than 200 mg/dL in a nonstressed, ambulatory subject supports the diagnosis of Diabetes Mellitus. ADA recommended reference range Performed By: #### A POB, LIPA #### [facility] , #### CMP, A1C WTH eA #### [place] [address] [place] Potassium [Moles/Vol] 3.8 mmol/L Normal 3.5-5.1 [facility] Comment on above: Order Comment: Reaso n for Exam Severe obesity (BMI >= 40);PCOS (polycystic ovarian syndrome NON FASTING Performed By: #### A POB, LIPA #### [facility] , #### CMP, A1C WTH eA #### [place] [address] [place] Protein [Mass/Vol] 7.8 g/dL Normal 6.4-8.9 [facility] Comment on above: Order Comment: Reaso n for Exam Severe obesity (BMI >= 40);PCOS (polycystic ovarian syndrome NON FASTING Performed By: #### A POB, LIPA #### [facility] , #### CMP, A1C WTH eA #### [place] [address] [place] Sodium [Moles/Vol] 138 mmol/L Normal 136-145 [facility] Comment on above: Order Comment: Reaso n for Exam Severe obesity (BMI >= 40);PCOS (polycystic ovarian syndrome NON FASTING Performed By: #### A POB, LIPA #### [facility] , #### CMP, A1C WTH eA #### [facility] [address] [place] [address] [place] Urea nitrogen [Mass/Vol] 16 mg/dL Normal 7-25 [facility] Comment on above: Order Comment: Reaso n for Exam Severe obesity (BMI >= 40);PCOS (polycystic ovarian syndrome NON FASTING Performed By: #### A POB, LIPA #### [facility] , #### CMP, A1C WTH eA #### [facility] [address] [place] [address] [place] Creatinine [Mass/volume] in Serum or PlasmaOrdered By: Celio Mullins on 07-01-2023 Creatinine [Mass/Vol] 0.64 mg/dL 0.60-1.20 [facility] Globulin Calc (S) [Mass/Vol] Ordered By: Celio Mullins on 07-01-2023 Globulin (S) [Mass/Vol] 3.2 g/dL [facility] Glucose [Mass/volume] in Ser um or PlasmaOrdered By: Celio Mullins on 07-01-2023 Glucose [Mass/Vol] 95 mg/dL 70-100 [facility] Comment on above: ADA recommended refe rence rangeRandom Glucose Reference Range is dependent on time and content of last meal. Glucose of more than 200 mg/dL in a nonstressed, ambulatory subject supports the diagnosis of Diabetes Mellitus. Glucose mean value [Mass/vol ume] in Blood Estimated from glycated hemoglobinOrdered By: Celio Mullins on 07-01-2023 Average glucose Estimated from glycated hemoglobin (Bld) [Mass/Vol] 117 mg/dL [facility] Hemoglobin A1c percentageOrd ered By: Celio Mullins on 07-01-2023 HbA1c (Bld) [Mass fraction] 5.7 % 4.3-5.6 [facility] Comment on above: Increased risk for d iabetes: 5.7 - 6.4diabetes: >6.4glycemic control for adults with diabetes: <7.0 Lipoprotein (a)on 07-01-2023 Lipoprotein a [Mass/Vol] 13.0 mg/dL Normal <75.0 [facility] Comment on above: Order Comment: Reaso n for Exam Severe obesity (BMI >= 40);PCOS (polycystic ovarian syndrome Result Comment: Note : Values greater than or equal to 75.0 nmol/L may indicate an independent risk factor for CHD, but must be evaluated with caution when applied to non- populations due to the influence of genetic factors on Lp(a) across ethnicities. Performed at: - [facility] [address] [id number] [place] Hand: Cassius Zhong PhD, Phone: [phone] Performed By: #### A POB, LIPA #### [facility] , #### CMP, A1C WTH eA #### [facility] [address] No Panel InformationOrdered By: Celio Mullins on 07-01-2023 Estimated GFR (CKD-EPI) > 60.0 mL/Min [facility] Creatinine Clearance (Chem N/A [facility] Potassium [Moles/volume] in Serum or PlasmaOrdered By: Celio Mullins on 07-01-2023 Potassium [Moles/Vol] 3.8 mmol/L 3.5-5.1 [facility] Protein [Mass/volume] in Ser um or PlasmaOrdered By: Celio Mullins on 07-01-2023 Protein [Mass/Vol] 7.8 g/dL 6.4-8.9 [facility] Serum or plasma albumin/glob ulin mass ratioOrdered By: Celio Mullins on 07-01-2023 Albumin/Globulin [Mass ratio] 1.4 {ratio} [facility] Serum or plasma anion gap de terminationOrdered By: Celio Mullins on 07-01-2023 Anion gap [Moles/Vol] 11.5 mmol/L 6.0-15.0 [facility] Serum or plasma lipoprotein a measurement (moles/volume)Ordered By: Celio Mullins on 07-01-2023 Lipoprotein a [Moles/Vol] 13.0 nmol/L <75.0 [facility] Comment on above: Note: Values greater than or equal to 75.0 nmol/L may indicate an independent risk factor for CHD, but must be evaluated with caution when applied to non- populations due to the influence of genetic factors on Lp(a) across ethnicities.Performed at: [facility] [id number] Director: Cassius Zhong PhD, Phone: [phone] Sodium [Moles/volume] in Ser um or PlasmaOrdered By: Celio Mullins on 07-01-2023 Sodium [Moles/Vol] 138 mmol/L 136-145 [facility] Urea nitrogen [Mass/volume] in Serum or PlasmaOrdered By: Celio Mullins on 07-01-2023 Urea nitrogen [Mass/Vol] 16 mg/dL 7 [facility] COVID Quick Testingon 2022 Result Negative [facility] Other SARS-CoV-2 (COVID-19) RNA NA A+probe Ql (Resp)on 02-11-2023 SARS-CoV-2 (COVID-19) RNA SURI+probe Ql (Unsp spec) Negative [facility] Other DHEA-SULFATEon 01-01-2023 DHEA-Sulfate 95.3 ug/dL Normal 84.8-378.[address] [facility] Comment on above: Performed By: #### D RIMA #### [facility] [address] [place] [address] Dr. Kaushik Palomares FSHon 01-01-2023 FSH 4.6 mIU/mL Normal [facility] Comment on above: Result Comment: Adul t Female: Follicular phase 3.5 - 12.5 Ovulation phase 4.7 - 21.5 Luteal phase 1.7 - 7.7 Postmenopausal 25.8 - 134.8 Performed By: #### C BC #### [facility] [address] [place] [address] Dr. Kaushik Palomares LUTEINIZING HORMONE (LH)on 01-01-2023 LH 3.5 mIU/mL Normal [facility] Comment on above: Result Comment: Adul t Female: Follicular phase 2.4 - 12.6 Ovulation phase 14.0 - 95.6 Luteal phase 1.0 - 11.4 Postmenopausal 7.7 - 58.5 Performed By: #### L BCLH #### [facility] [address] [place] [address] Dr. Kaushik Palomares CBC AUTO DIFFon 12-31-2022 BASO # 0.1 103/ul Normal 0.0-0.1 [facility] Comment on above: Performed By: #### C BC #### [facility] [address] [place] [address] Dr. Kaushik Palomares Basophils/100 WBC (Bld) 0.8 % Normal 0.2-2.0 [facility] Comment on above: Performed By: #### C BC #### [facility] [address] [place] [address] Dr. Kaushik Palomares EO # 0.1 103/ul Normal 0.0-0.7 [facility] Comment on above: Performed By: #### C BC #### [facility] [address] [place] [address] Dr. Kaushik Palomares Eosinophils/100 WBC (Bld) 1.7 % Normal 0.9-7.0 [facility] Comment on above: Performed By: #### C BC #### [facility] [address] [place] [address] Dr. Kaushik Palomares Erythrocyte distribution width (RBC) [Ratio] 12.8 % Normal 11.0-15.0 [facility] Comment on above: Performed By: #### C BC #### [facility] [address] [place] [address] Dr. Kaushik Palomares Hematocrit (Bld) [Volume fraction] 33.0 % Critically low 36.0-48.0 [facility] Comment on above: Performed By: #### C BC #### [facility] [address] [place] [address] Dr. Kaushik Palomares Hemoglobin (Bld) [Mass/Vol] 11.0 g/dL Critically low 12.0-16.0 [facility] Comment on above: Performed By: #### C BC #### [facility] [address] [place] [address] Dr. Kaushik Palomares IG # 0.03 10e3/ul Normal 0.00-0.03 [facility] Comment on above: Performed By: #### C BC #### [facility] [address] [place] [address] Dr. Kaushik Palomares IG % 0.5 % Normal 0.0-0.5 [facility] Comment on above: Performed By: #### C BC #### [facility] [address] [place] [address] Dr. Kaushik Palomares LYMPH # 2.4 103/ul Normal 1.2-3.8 [facility] Comment on above: Performed By: #### C BC #### [facility] [address] [place] [address] Dr. Kaushik Palomares Lymphocytes/100 WBC (Bld) 36.6 % Normal 20.5-60.0 [facility] Comment on above: Performed By: #### C BC #### [facility] [address] [place] [address] Dr. Kaushik Palomares MANUAL DIFF REQ NO Normal [facility] Comment on above: Performed By: #### C BC #### [facility] [address] [place] [address] Dr. Kaushik Palomares MCH (RBC) [Entitic mass] 29.0 pg Normal 26.7-34.0 [facility] Comment on above: Performed By: #### C BC #### [facility] [address] [place] [address] Dr. Kaushik Palomares MCHC (RBC) [Mass/Vol] 33.3 g/dL Normal 29.9-35.2 [facility] Comment on above: Performed By: #### C BC #### [facility] [address] [place] [address] Dr. Kaushik Palomares MCV (RBC) [Entitic vol] 87.1 fL Normal 81.0-99.0 [facility] Comment on above: Performed By: #### C BC #### [facility] [address] [place] [address] Dr. Kaushik Palomares MONO # 0.2 103/ul Critically low 0.3-0.8 [facility] Comment on above: Performed By: #### C BC #### [facility] [address] [address] [address] Kaushik Palomares Monocytes/100 WBC (Bld) 3.6 % Normal 1.7-12.0 [facility] Comment on above: Performed By: #### C BC #### [facility] [address] [address] [address] Kaushik Palomares NEUT # 3.7 103/ul Normal 1.4-6.5 [facility] Comment on above: Performed By: #### C BC #### [facility] [address] [address] [address] Kaushik Palomares Neutrophils/100 WBC (Bld) 56.8 % Normal 43.0-75.0 [facility] Comment on above: Performed By: #### C BC #### [facility] [address] [address] [address] Kaushik Palomares Platelet mean volume (Bld) [Entitic vol] 9.8 fL Normal 9.5-13.5 [facility] Comment on above: Performed By: #### C BC #### [facility] [address] [address] [address] Kaushik Palomares PLT 234 103/ul Normal 150-450 [facility] Comment on above: Performed By: #### C BC #### [facility] [address] [address] [address] Kaushik Palomares RBC 3.79 106/ul Critically low 4.20-5.40 [facility] Comment on above: Performed By: #### C BC #### [facility] [address] [address] [address] Kaushik Palomares WBC 6.5 103/ul Normal 4.0-11.0 [facility] Comment on above: Performed By: #### C BC #### [facility] [address] [place] [address] Dr. Kaushik Palomares FREE T4on 12-31-2022 Free T4 [Mass/Vol] 0.79 ng/dL Normal 0.76-1.46 [facility] Comment on above: Performed By: #### F T4 #### [facility] [address] [address] [address] Kaushik Palomares GLYCOHEMOGLOBIN A1Con 2022 ADA RECOMMENDATION SEE BELOW Normal [facility] Comment on above: Result Comment: ADA RECOMMENDED LIMIT 4.0 - 6.0 ADA THERAPEUTIC TARGET < 7.0 ACTION SUGGESTED > 7.0 Performed By: #### A 1C #### [facility] [address] [place] [address] Dr. Kausihk Palomares Glucose [Mass/Vol] 111 mg/dL Normal [facility] Comment on above: Performed By: #### A 1C #### [facility] [address] [place] [address] Dr. Kaushik Palomares HbA1c (Bld) [Mass fraction] 5.5 % Normal 4.5-6.2 [facility] Comment on above: Performed By: #### A 1C #### [facility] [address] [place] [address] Dr. Kaushik Palomares TSHon 12-31-2022 TSH 1.114 uIU/mL Normal 0.358-3.740 [facility] Comment on above: Performed By: #### C BC #### [facility] [address] [place] [address] Dr. Kaushik Palomares US PELVIS AND TRANSVAGon US PELVIS AND TRANSVAG EXAMINATION: US PELVIS AND TRANSVAG HISTORY: Abnormal uterine bleeding unrelated to menstrual cycle COMPARISON: Ultrasound pelvis 12/26/2021 TECHNIQUE: Transabdominal and transvaginal sonographic examination. FINDINGS: UTERUS: Normal size and appearance. Uterus size: 7.3 x 2.9 x 5.1 cm ENDOMETRIUM: Thickened, but homogeneous echotexture. Endometrial thickness: 17 mm RIGHT OVARY: Normal size and appearance. Duplex Doppler demonstrates normal waveform and flow; resistive index 0.4. Ovary size: 4.6 x 3.2 x 4.3 cm LEFT OVARY: Normal size and appearance. Duplex Doppler demonstrates normal waveform and flow; resistive index 0.6. Ovary size: 3.3 x 2.2 x 3.8 cm CUL-DE-SAC: Unremarkable. No significant free fluid. BLADDER: Unremarkable. OTHER: None. IMPRESSION: 1. Thickened endometrium without appreciable mass or hypervascularity; suggestive of endometrial hyperplasia. 2. Unremarkable ovaries. Electronically authenticated by: SUGEY MACDONALD Date: 2022-11-26 15:[address] [facility] XR SACRUM_COCCYXon 3 XR SACRUM_COCCYX EXAMINATION: XR LSPINE MIN 4 VIEWS, XR SACRUM_COCCYX HISTORY: Sacroiliac disorder ; chronic low back pain, no known injury COMPARISON: No relevant comparison available. FINDINGS: BONES: No significant spondylosis, scoliosis, fracture, or visible bony lesion. DISC SPACES: Mild narrowing L4-5. PARASPINOUS: Negative. No paraspinous abnormality is seen. SACRUM: No fracture, disruption of the sacral ala line, or cortical irregularity. COCCYX: No fracture or suspicious alignment. SOFT TISSUES: No widening of the sacroiliac joints. No radiopaque foreign body. OTHER: IMPRESSION: 1. L4-5 mild degenerative disc disease. 2. Otherwise unremarkable lumbar spine and sacrum. Electronically authenticated by: SUGEY MACDONALD Date: 2022-11-08 10:01 Normal [facility] PAP ACOG PANEL 2: 31 to 66on 11-05-2022 . . Normal [facility] Comment on above: Result Comment: Perf ormed at: WB Performed By: #### C BC #### [facility] [address] [address] [address] Kaushik Palomares Age Gdln ACOG Testing 30-65 Normal [facility] Comment on above: Performed By: #### C BC #### [facility] [address] [address] [address] Kaushik Palomares DIAGNOSIS: Comment Normal [facility] Comment on above: Result Comment: NEGA TIVE FOR INTRAEPITHELIAL LESION OR MALIGNANCY. Performed at: WB Performed By: #### C BC #### [facility] [address] [address] [address] Kaushik Palomares HPV Aptima Negative Normal Negative [facility] Comment on above: Result Comment: This nucleic acid amplification test detects fourteen high-risk HPV types (16,18,31,33,35,39,45,51,52,56,58,59,66,68) without differentiation. Performed at: =G Performed By: #### C BC #### [facility] [address] [address] [address] Kaushik Palomares HPV Genotype Reflex Comment Normal [facility] Comment on above: Result Comment: Crit ermaico not met, HPV Genotype not performed. Performed at: WB Performed By: #### C BC #### [facility] [address] [place] [address] Dr. Kaushik Palomares Methodology: Comment Normal [facility] Comment on above: Result Comment: This liquid based ThinPrep(R) pap test was screened with the use of an image guided system. Performed at: WB Performed By: #### C BC #### [facility] [address] [place] [address] Dr. Kaushik Palomares Note: Comment [facility] Comment on above: Result Comment: The Pap smear is a screening test designed to aid in the detection of premalignant and malignant conditions of the uterine cervix. It is not a diagnostic procedure and should not be used as the sole means of detecting cervical cancer. Both false-positive and false-negative reports do occur. . Performed at: WB Performed By: #### C BC #### [facility] [address] [place] [address] Dr. Kaushik Palomares Performed by: Comment Normal [facility] Comment on above: Result Comment: Robi Graham, Faith Healer (ASCP) Performed at: WB Performed By: #### C BC #### [facility] [address] [place] [address] Dr. Kaushik Palomares Specimen adequacy: Comment Normal [facility] Comment on above: Result Comment: Sati sfactory for evaluation. Endocervical and/or squamous metaplastic cells (endocervical component) are present. Performed at: WB Performed By: #### C BC #### [facility] [address] [place] [address] Dr. Kaushik Palomares COVID/FLU RT-PCRon 2 SARS-CoV-2 (COVID-19) RNA SURI+probe Ql (Unsp spec) Negative [facility] Other COVID/FLU RT-PCR Negative [facility] Other HCG-BETA SUBUNIT QUANTon hCG,Beta Subunit,Qnt,Serum <1 Normal [facility] Comment on above: Result Comment: Fema le (Non-) 0 - 5 (Postmenopausal) 0 - 8 . Female () Weeks of Gestation 3 6 - 71 4 10 - 750 5 866 - 2290 6 238 - 07702 7 [phone] 8 [phone] 9 [phone] 10 [phone] 12 56518 -[phone] 14 21622 - 47650 15 30634 - 55342 16 7282 - 11921 17 7879 - 63800 18 4235 - 52091 Rg ECLIA methodology Performed By: #### H CGSUB #### [facility] [address] [place] [address] Dr. Kaushik Palomares T4 LABCORPon 01-22-2022 T4 [Mass/Vol] 7.8 ug/dL Normal 4.5-12.0 [facility] Comment on above: Performed By: #### T 4LC #### [facility] [address] [place] [address] Dr. Kaushik Palomares CBC AUTO DIFFon 01-21-2022 BASO # 0.1 103/ul Normal 0.0-0.1 [facility] Comment on above: Performed By: #### C BC #### [facility] [address] [place] [address] Dr. Kaushik Palomares Basophils/100 WBC (Bld) 0.6 % Normal 0.2-2.0 [facility] Comment on above: Performed By: #### C BC #### [facility] [address] [place] [address] Dr. Kaushik Palomares EO # 0.1 103/ul Normal 0.0-0.7 [facility] Comment on above: Performed By: #### C BC #### [facility] [address] [place] [address] Dr. Kaushik Palomares Eosinophils/100 WBC (Bld) 1.2 % Normal 0.9-7.0 [facility] Comment on above: Performed By: #### C BC #### [facility] [address] [place] [address] Dr. Kaushik Palomares Erythrocyte distribution width (RBC) [Ratio] 13.3 % Normal 11.0-15.0 [facility] Comment on above: Performed By: #### C BC #### [facility] [address] [place] [address] Dr. Kaushik Palomares Hematocrit (Bld) [Volume fraction] 40.0 % Normal 36.0-48.0 [facility] Comment on above: Performed By: #### C BC #### [facility] [address] [place] [address] Dr. Kaushik Palomares Hemoglobin (Bld) [Mass/Vol] 12.7 g/dL Normal 12.0-16.0 [facility] Comment on above: Performed By: #### C BC #### [facility] [address] [place] [address] Dr. Kaushik Palomares IG # 0.02 10e3/ul Normal 0.00-0.03 [facility] Comment on above: Performed By: #### C BC #### [facility] [address] [place] [address] Dr. Kaushik Palomares IG % 0.2 % Normal 0.0-0.5 [facility] Comment on above: Performed By: #### C BC #### [facility] [address] [place] [address] Dr. Kaushik Palomares LYMPH # 3.0 103/ul Normal 1.2-3.8 [facility] Comment on above: Performed By: #### C BC #### [facility] [address] [place] [address] Dr. Kaushik Palomares Lymphocytes/100 WBC (Bld) 32.9 % Normal 20.5-60.0 [facility] Comment on above: Performed By: #### C BC #### [facility] [address] [place] [address] Dr. Kaushik Palomares MANUAL DIFF REQ NO Normal [facility] Comment on above: Performed By: #### C BC #### [facility] [address] [address] [address] Kaushik Palomares MCH (RBC) [Entitic mass] 28.5 pg Normal 26.7-34.0 [facility] Comment on above: Performed By: #### C BC #### [facility] [address] [address] [address] Kaushik Palomares MCHC (RBC) [Mass/Vol] 31.8 g/dL Normal 29.9-35.2 [facility] Comment on above: Performed By: #### C BC #### [facility] [address] [place] [address] Dr. Kaushik Palomares MCV (RBC) [Entitic vol] 89.7 fL Normal 81.0-99.0 [facility] Comment on above: Performed By: #### C BC #### [facility] [address] [place] [address] Dr. Kaushik Palomares MONO # 0.5 103/ul Normal 0.3-0.8 [facility] Comment on above: Performed By: #### C BC #### [facility] [address] [place] [address] Dr. Kaushik Palomares Monocytes/100 WBC (Bld) 5.1 % Normal 1.7-12.0 [facility] Comment on above: Performed By: #### C BC #### [facility] [address] [place] [address] Dr. Kaushik Palomares NEUT # 5.4 103/ul Normal 1.4-6.5 [facility] Comment on above: Performed By: #### C BC #### [facility] [address] [place] [address] Dr. Kaushik Palomares Neutrophils/100 WBC (Bld) 60.0 % Normal 43.0-75.0 [facility] Comment on above: Performed By: #### C BC #### [facility] [address] [place] [address] Dr. Kaushik Palomares Platelet mean volume (Bld) [Entitic vol] 9.3 fL Critically low 9.5-13.5 [facility] Comment on above: Performed By: #### C BC #### [facility] [address] [place] [address] Dr. Kaushik Palomares PLT 221 103/ul Normal 150-450 [facility] Comment on above: Performed By: #### C BC #### [facility] [address] [address] [address] Kaushik Palomares RBC 4.46 106/ul Normal 4.20-5.40 [facility] Comment on above: Performed By: #### C BC #### [facility] [address] [place] [address] Dr. Kaushik Palomares WBC 9.0 103/ul Normal 4.0-11.0 [facility] Comment on above: Performed By: #### C BC #### [facility] [address] [place] [address] Dr. Kaushik Palomares GLYCOHEMOGLOBIN A1Con 2021 ADA RECOMMENDATION SEE BELOW Normal [facility] Comment on above: Result Comment: ADA RECOMMENDED LIMIT 4.0 - 6.0 ADA THERAPEUTIC TARGET < 7.0 ACTION SUGGESTED > 7.0 Performed By: #### C BC #### [facility] [address] [place] [address] Dr. Kaushik Palomares Glucose [Mass/Vol] 94 mg/dL Normal [facility] Comment on above: Performed By: #### C BC #### [facility] [address] [place] [address] Dr. Kaushik Palomares HbA1c (Bld) [Mass fraction] 4.9 % Normal 4.5-6.2 [facility] Comment on above: Performed By: #### C BC #### [facility] [address] [place] [address] Dr. Kaushik Palomares LIPID PROFILEon 01-21-2022 CHOL-HDL RATIO NORM SEE BELOW Normal [facility] Comment on above: Result Comment: 3.3 - 4.4 LOW RISK 4.4 - 7.1 AVERAGE RISK 7.1 - 11.0 MODERATE RISK >11.0 HIGH RISK Performed By: #### L IPID, CMP, TSH #### [facility] [address] [address] [address] Kaushik Palomares Cholesterol [Mass/Vol] 168 mg/dL Normal <=200 Th [facility] Comment on above: Performed By: #### L IPID, CMP, TSH #### [facility] [address] [address] [address] Kaushik Palomares Cholesterol in HDL [Mass/Vol] 41 mg/dL Normal 40-60 [facility] Comment on above: Performed By: #### L IPID, CMP, TSH #### [facility] [address] [address] [address] Kaushik Palomares Cholesterol in LDL [Mass/Vol] 90.2 mg/dL Normal [facility] Comment on above: Performed By: #### L IPID, CMP, TSH #### [facility] [address] [address] [address] Kaushik Palomares Cholesterol.total/Mali sterol in HDL [Mass ratio] 4.1 {ratio} Normal [facility] Comment on above: Performed By: #### L IPID, CMP, TSH #### [facility] [address] [address] [address] Kaushik Palomares HDL NORMAL > or = 60 mg/dl - LO W CARDIOVASCULAR RISK <40 mg/dl - HIGH CARDIOVASCULAR RISK Normal [facility] Comment on above: Performed By: #### L IPID, CMP, TSH #### [facility] [address] [address] [address] Kaushik Palomares LDL CALC NORMAL SEE BELOW Normal [facility] Comment on above: Result Comment: <100 mg/dl OPTIMAL 100 - 129 mg/dl NEAR OR ABOVE OPTIMAL 130 - 159 mg/dl BORDERLINE HIGH 160 - 189 mg/dl HIGH >190 mg/dl VERY HIGH Performed By: #### L IPID, CMP, TSH #### [facility] [address] [address] [address] Kaushik Palomares Triglyceride [Mass/Vol] 184 mg/dL Critically high <=150 [facility] Comment on above: Performed By: #### L IPID, CMP, TSH #### [facility] [address] [address] [address] Kaushik Palomares VLDL CALC 36.8 mg/dL Normal [facility] Comment on above: Performed By: #### L IPID, CMP, TSH #### [facility] [address] [address] [address] Kaushik Palomares MICROALBUMIN, RAND URon 06-0 mALB 2.0 mg/L Normal <=30.[address] [facility] Comment on above: Performed By: #### C BC #### [facility] [address] [address] [address] Kaushik Palomares PROF 14(COMP METB)on 022 Albumin [Mass/Vol] 3.7 g/dL Normal 3.4-5.0 [facility] Comment on above: Performed By: #### L IPID, CMP, TSH #### [facility] [address] [place] [address] Dr. Kaushik Palomares Albumin/Globulin [Mass ratio] 0.9 {ratio} Normal [facility] Comment on above: Performed By: #### L IPID, CMP, TSH #### [facility] [address] [address] [address] Kaushik Palomares ALP [Catalytic activity/Vol] 53 U/L Normal 46-116 [facility] Comment on above: Performed By: #### L IPID, CMP, TSH #### [facility] [address] [place] [address] Dr. Kaushik Palomares ALT [Catalytic activity/Vol] 44 U/L Normal 14-[address] [facility] Comment on above: Performed By: #### L IPID, CMP, TSH #### [facility] [address] [address] [address] Kaushik Palomares Anion gap [Moles/Vol] 6.8 mmol/L Normal [facility] Comment on above: Performed By: #### L IPID, CMP, TSH #### [facility] [address] [place] [address] Dr. Kaushik Palomares AST [Catalytic activity/Vol] 22 U/L Normal 15-37 [facility] Comment on above: Performed By: #### L IPID, CMP, TSH #### [facility] [address] [place] [address] Dr. Kaushik Palomares Bilirubin [Mass/Vol] 0.3 mg/dL Normal 0.2-1.0 [facility] Comment on above: Performed By: #### L IPID, CMP, TSH #### [facility] [address] [place] [address] Dr. Kaushik Palomares Calcium [Mass/Vol] 9.2 mg/dL Normal 8.5-10.1 [facility] Comment on above: Performed By: #### L IPID, CMP, TSH #### [facility] [address] [place] [address] Dr. Kaushik Palomares Chloride [Moles/Vol] 102 mmol/L Normal 98-107 [facility] Comment on above: Performed By: #### L IPID, CMP, TSH #### [facility] [address] [place] [address] Dr. Kaushik Palomares CO2 [Moles/Vol] 31.4 mmol/L Normal 21.0-32.0 [facility] Comment on above: Performed By: #### L IPID, CMP, TSH #### [facility] [address] [place] [address] Dr. Kaushik Palomares Creatinine [Mass/Vol] 0.71 mg/dL Normal 0.55-1.02 [facility] Comment on above: Performed By: #### L IPID, CMP, TSH #### [facility] [address] [place] [address] Dr. Kaushik Palomares EGFR-AF ITALIAN >60 Normal >=60 [facility] Comment on above: Performed By: #### L IPID, CMP, TSH #### [facility] [address] [place] [address] Dr. Kaushik Palomares EGFR-NON AF ITALIAN >60 Normal >=60 [facility] Comment on above: Performed By: #### L IPID, CMP, TSH #### [facility] [address] [place] [address] Dr. Kaushik Palomares Globulin (S) [Mass/Vol] 4.2 g/dL Normal T [facility] Comment on above: Performed By: #### L IPID, CMP, TSH #### [facility] [address] [place] [address] Dr. Kaushik Palomares Glucose [Mass/Vol] 93 mg/dL Normal 74-106 [facility] Comment on above: Performed By: #### L IPID, CMP, TSH #### [facility] [address] [place] [address] Dr. Kaushik Palomares Potassium [Moles/Vol] 4.2 mmol/L Normal 3.5-5.1 [facility] Comment on above: Performed By: #### L IPID, CMP, TSH #### [facility] [address] [place] [address] Dr. Kaushik Palomares Protein [Mass/Vol] 7.9 g/dL Normal 6.4-8.2 [facility] Comment on above: Performed By: #### L IPID, CMP, TSH #### [facility] [address] [place] [address] Dr. Kaushik Palomares Sodium [Moles/Vol] 136 mmol/L Normal 136-145 [facility] Comment on above: Performed By: #### L IPID, CMP, TSH #### [facility] [address] [place] [address] Dr. Kaushik Palomares Urea nitrogen [Mass/Vol] 11.0 mg/dL Normal 7.0-18.0 [facility] Comment on above: Performed By: #### L IPID, CMP, TSH #### [facility] [address] [place] [address] Dr. Kaushik Palomares Urea nitrogen/Creatinine [Mass ratio] 15.5 mg/mg Normal [facility] Comment on above: Performed By: #### L IPID, CMP, TSH #### [facility] [address] [place] [address] Dr. Kaushik Palomares TSHon 01-21-2022 TSH 1.298 uIU/mL Normal 0.358-3.740 [facility] Comment on above: Performed By: #### C BC #### [facility] [address] [address] [address] Kaushik Palomares TSH RANGE SEE BELOW Normal [facility] Comment on above: Result Comment: <0.3 4 UIU/ml HYPERTHYROID 0.34-5.60 UIU/ml EUTHYROID >5.60 UIU/ml HYPOTHYROID Performed By: #### C BC #### [facility] [address] [address] [address] Kaushik Palomares COVID Quick Testingon 2020 Result Negative [facility] Other Quick Strepon 06-17-2021 S. pyogenes Org specific cx Ql (Throat) Negative [employer] Other Quick Strep [facility] Other Urinalysis - AUTOMATEDon Appearance (U) cloudy [employer] Other Bilirubin Ql (U) Negative [employer] Other Color (U) yellow [facility] Other Glucose Ql (U) Negative [employer] Other Hemoglobin Ql (U) large [employer] Other Ketones Ql (U) Negative [employer] Other Leukocyte esterase Test strip Ql (U) trace [facility] Other Nitrite Ql (U) Positive [employer] Other pH (U) 5.5 [pH] [facility] Other Protein Ql (U) 100 [employer] Other Specific gravity (U) [Rel density] 1.025 [facility] Other Urobilinogen (U) [Mass/Vol] 0.2 mg/dL [facility] Other Urinalysis - AUTOMATED No rth [employer] Other Urine Cultureon 05-31-2021 Urine Culture >100,000 [facility] Other Urine Culture <16 [place] [employer] Other Urine Culture >16 [place] [employer] Other Urine Culture <4 [facility] Other Urine Culture 8 [facility] Other Urine Culture <2 [facility] Other Urine Culture <1 [facility] Other Urine Culture >2 [facility] Other Urine Culture <0.5 [facility] [employer] Other Urine Culture >8 [employer] Other Urine Culture >4 [facility] Other Urine Culture <32 [facility] Other Urine Culture >2/38 [facility] Other Vital Signs Date Time Vital Sign Value 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 07-15-2023 07:45-0500 Body height 162.56 cm [facility] Other [facility] Other 07-15-2023 07:45-0500 Body mass index (BMI) [Ratio] 52.98 kg/m2 [facility] Other [facility] Other 07-15-2023 07:45-0500 Body weight 140.03 kg [facility] Other [facility] Other 07-15-2023 07:45-0500 Diastolic blood pressure 66 mm[Hg] [facility] Other [facility] Other 07-15-2023 07:45-0500 Respiratory rate 18 /min Celio Mullins Other [facility] Other 07-15-2023 07:45-0500 SaO2% (BldA) [Mass fraction] 98 % Celio Mullins Other [facility] Other 07-15-2023 07:45-0500 Systolic blood pressure 112 mm[Hg] Celio Mullins Other [facility] Other 07-07-2023 11:15-0500 Body height 162.56 cm Michelle Ernandez Other [facility] Other 07-07-2023 11:15-0500 Body mass index (BMI) [Ratio] 52.69 kg/m2 Michelle Haynesmond Other [facility] Other 07-07-2023 11:15-0500 Body temperature 98 [degF] Michelle Ernandez Other [facility] Other 07-07-2023 11:15-0500 Body weight 139.26 kg Michelle Haynesmond Other [facility] Other 07-07-2023 11:15-0500 Respiratory rate 20 /min Michelle Oma Other [facility] Other 07-07-2023 11:15-0500 SaO2% (BldA) [Mass fraction] 98 % Michelle Oma Other [facility] Other 06-29-2023 10:20-0500 Body height 162.56 cm Michelle Oma Other [facility] Other 06-29-2023 10:20-0500 Body mass index (BMI) [Ratio] 53.03 kg/m2 Michelle Ernandez Other [facility] Other 06-29-2023 10:20-0500 Body temperature 99.7 [degF] Michelle Ernandez Other [facility] Other 06-29-2023 10:20-0500 Body weight 140.16 kg Michelle Ernandez Other [facility] Other 06-29-2023 10:20-0500 Respiratory rate 19 /min Michelle Ernandez Other [facility] Other 06-29-2023 10:20-0500 SaO2% (BldA) [Mass fraction] 98 % Michelle Ernandez Other [facility] Other 06-11-2023 15:30-0400 Body height 162.56 cm Manisha Marc Other [facility] Other 06-11-2023 15:30-0400 Body mass index (BMI) [Ratio] 53.79 kg/m2 Manisha Marc Other [facility] Other 06-11-2023 15:30-0400 Body weight 142.16 kg Manisha Marc Other [facility] Other 06-11-2023 15:30-0400 Diastolic blood pressure 62 mm[Hg] Manisha Marc Other [facility] Other 06-11-2023 15:30-0400 SaO2% (BldA) [Mass fraction] 99 % Manisha Marc Other [facility] Other 06-11-2023 15:30-0400 Systolic blood pressure 126 mm[Hg] Manisha Marc Other [facility] Other 05-06-2023 13:40-0400 Body height 162.56 cm Casandra Hassan Other [facility] Other 05-06-2023 13:40-0400 Body mass index (BMI) [Ratio] 53.65 kg/m2 Casandra Hassan Other [facility] Other 05-06-2023 13:40-0400 Body temperature 98.4 [degF] Casandra Hassan Other [facility] Other 05-06-2023 13:40-0400 Body weight 141.8 kg Casandra Hassan Other [facility] Other 05-06-2023 13:40-0400 Diastolic blood pressure 81 mm[Hg] Casandra Hassan Other [facility] Other 05-06-2023 13:40-0400 Respiratory rate 18 /min Casandra Hassan Other [facility] Other 05-06-2023 13:40-0400 SaO2% (BldA) [Mass fraction] 95 % Casandra Hassan Other [facility] Other 05-06-2023 13:40-0400 Systolic blood pressure 134 mm[Hg] Casandra Hassan Other [facility] Other 04-30-2023 08:30-0400 Body height 162.56 cm Manisha Marc Other [facility] Other 04-30-2023 08:30-0400 Body mass index (BMI) [Ratio] 53.86 kg/m2 Manisha Tari Other [facility] Other 04-30-2023 08:30-0400 Body weight 142.34 kg Manisha Tari Other [facility] Other 04-30-2023 08:30-0400 Diastolic blood pressure 82 mm[Hg] Manisha Tari Other [facility] Other 04-30-2023 08:30-0400 SaO2% (BldA) [Mass fraction] 100 % Manisha Tari Other [facility] Other 04-30-2023 08:30-0400 Systolic blood pressure 120 mm[Hg] Manisha Tari Other [facility] Other 04-29-2023 07:00-0400 Body height 162.56 cm Nely Fitt Other [facility] Other 04-29-2023 07:00-0400 Body mass index (BMI) [Ratio] 54.41 kg/m2 Nely Fitt Other [facility] Other 04-29-2023 07:00-0400 Body weight 143.79 kg Nely Fitt Other [facility] Other 03-25-2023 13:45-0400 Body height 162.56 cm Celio Mullins Other [facility] Other 03-25-2023 13:45-0400 Body mass index (BMI) [Ratio] 55.45 kg/m2 Celio Mullins Other [facility] Other 03-25-2023 13:45-0400 Body weight 146.56 kg Celio Mullins Other [facility] Other 03-25-2023 13:45-0400 Diastolic blood pressure 57 mm[Hg] Celio Mullins Other [facility] Other 03-25-2023 13:45-0400 Respiratory rate 18 /min Celio Mullins Other [facility] Other 03-25-2023 13:45-0400 SaO2% (BldA) [Mass fraction] 97 % Celio Mullins Other [facility] Other 03-25-2023 13:45-0400 Systolic blood pressure 106 mm[Hg] Celio Mullins Other [facility] Other 02-11-2023 12:15-0400 Body height 163.83 cm Casandra Hassan Other [facility] Other 02-11-2023 12:15-0400 Body mass index (BMI) [Ratio] 54.88 kg/m2 Casandra Hassan Other [facility] Other 02-11-2023 12:15-0400 Body temperature 98 [degF] Casandra Hassan Other [facility] Other 02-11-2023 12:15-0400 Body weight 147.33 kg Casandra Hassan Other [facility] Other 02-11-2023 12:15-0400 Diastolic blood pressure 85 mm[Hg] Casandra Hassan Other [facility] Other 02-11-2023 12:15-0400 Respiratory rate 18 /min Casandra Tesfayeley Other [facility] Other 02-11-2023 12:15-0400 SaO2% (BldA) [Mass fraction] 98 % Casandra Tesfayeley Other [facility] Other 02-11-2023 12:15-0400 Systolic blood pressure 128 mm[Hg] Casandra Tesfayeley Other [facility] Other 07-13-2022 11:15-0500 Body height 163.83 cm Michelle Ernandez Other [facility] Other 07-13-2022 11:15-0500 Body mass index (BMI) [Ratio] 51.54 kg/m2 Michelle Haynesmond Other [facility] Other 07-13-2022 11:15-0500 Body temperature 96.6 [degF] Michelle Haynesmond Other [facility] Other 07-13-2022 11:15-0500 Body weight 138.35 kg Michelle Haynesmond Other [facility] Other 07-13-2022 11:15-0500 Respiratory rate 18 /min Michelle Haynesmond Other [facility] Other 07-13-2022 11:15-0500 SaO2% (BldA) [Mass fraction] 96 % Michelle Haynesmond Other [facility] Other 07-06-2021 13:00-0500 Body height 163.83 cm Michelle Oma Other [facility] Other 07-06-2021 13:00-0500 Body mass index (BMI) [Ratio] 49 kg/m2 Michelle Oma Other [facility] Other 07-06-2021 13:00-0500 Body temperature 97.5 [degF] Michelle Oma Other [facility] Other 07-06-2021 13:00-0500 Body weight 131.54 kg Michelle Oma Other [facility] Other 07-06-2021 13:00-0500 SaO2% (BldA) [Mass fraction] 96 % Michelle Oma Other [facility] Other 06-17-2021 11:00-0400 Body height 163.83 cm Michelle Oma Other [facility] Other 06-17-2021 11:00-0400 Body mass index (BMI) [Ratio] 49.68 kg/m2 Michelle Oma Other [facility] Other 06-17-2021 11:00-0400 Body temperature 98.3 [degF] Michelle Oma Other [facility] Other 06-17-2021 11:00-0400 Body weight 133.36 kg Michelle Oma Other [facility] Other 06-17-2021 11:00-0400 Respiratory rate 18 /min Michelle Oma Other [facility] Other 06-17-2021 11:00-0400 SaO2% (BldA) [Mass fraction] 96 % Michelle Oma Other [facility] Other 05-31-2021 13:50-0400 Body height 163.83 cm Michelle Oma Other [facility] Other 05-31-2021 13:50-0400 Body mass index (BMI) [Ratio] 50.36 kg/m2 Michelle Oma Other [facility] Other 05-31-2021 13:50-0400 Body temperature 97.8 [degF] Michelle Haynesmond Other [facility] Other 05-31-2021 13:50-0400 Body weight 135.17 kg Michelle Oma Other [facility] Other 05-31-2021 13:50-0400 Diastolic blood pressure 90 mm[Hg] Michelle Oma Other [facility] Other 05-31-2021 13:50-0400 Respiratory rate 18 /min Michelle Oma Other [facility] Other 05-31-2021 13:50-0400 SaO2% (BldA) [Mass fraction] 98 % Michelle Oma Other [facility] Other 05-31-2021 13:50-0400 Systolic blood pressure 150 mm[Hg] Michelle Oma Other [facility] Other Encounters Encounter Date Encounter Type Care Provider Facility Start: 07-24-2023 End: 07-24-2023 ambulatory MELA ANDERSON Not Available Start: 07-21-2023 End: 07-22-2023 ambulatory Bud Combs MD Facility:[facility] Start: 07-15-2023 Follow-up encounter Celio Mullins [facility] Start: 07-15-2023 End: 07-15-2023 ambulatory Manisha Marc [facility] Other Start: 07-07-2023 End: 07-07-2023 ambulatory Michelle Oma Other [facility] Other Start: 07-07-2023 Office outpatient vi sit 15 minutes Michelle Oma [facility] Start: 07-03-2023 End: 07-03-2023 ambulatory Manisha Marc Facility:[facility] Start: 07-03-2023 End: 07-03-2023 ambulatory ROSITA Marc Work Phone: [facility] Work Phone: Start: 07-03-2023 End: 07-03-2023 Patient encounter procedure ROSITA Marc Work Phone: [facility] Work Phone: Start: 07-01-2023 End: 07-01-2023 ambulatory Manisha Marc Facility:[facility] Start: 07-01-2023 End: 07-01-2023 Patient encounter procedure ROSITA Marc Work Phone: [facility] Work Phone: Start: 06-29-2023 End: 06-29-2023 ambulatory Michelle Ernandez Other [facility] Other Start: 06-29-2023 Office outpatient vi sit 15 minutes Michelle Oma [facility] Start: 06-17-2023 Registered Recurring ROSITA Marc Work Phone: [facility] Work Phone: Start: 06-11-2023 End: 06-11-2023 ambulatory Manisha Marc Other [facility] Other Start: 06-11-2023 Office outpatient vi sit 25 minutes Manisha Marc [facility] Start: 05-14-2023 ambulatory Manisha Marc Fac ility:[facility] Start: 05-06-2023 End: 05-06-2023 ambulatory Casandra Hassan Other [facility] Other Start: 05-06-2023 Office outpatient vi sit 10 minutes Casandra Hassan [facility] Start: 05-01-2023 End: 05-01-2023 ambulatory Manisha Marc Other [facility] Other Start: 05-01-2023 Telephone encounter Manisha Jacky her [facility] Start: 04-30-2023 End: 04-30-2023 ambulatory Manisha Marc Other [facility] Other Start: 04-30-2023 Encounter for genera l adult medical examination without abnormal findings Manisha Marc [facility] Start: 04-30-2023 Periodic preventive med est patient 18-39 yrs Manisha Marc [facility] Start: 04-29-2023 ([facility]) [facility] Init ial Provider Nely Cruz [facility] Start: 04-29-2023 End: 04-29-2023 ambulatory Nely Cruz Other [facility] Other Start: 03-25-2023 End: 03-25-2023 ambulatory Celio Mullins Other [facility] Other Start: 03-25-2023 Nutrition therapy Celio johns [facility] Start: 03-25-2023 Telephone encounter Celio guerrero [facility] Start: 03-14-2023 End: 03-14-2023 ambulatory Nely Cruz Other [facility] Other Start: 03-14-2023 Telephone encounter Nely Owens [facility] Start: 02-11-2023 End: 02-11-2023 ambulatory Casandra Hassan Other [facility] Other Start: 02-11-2023 Office outpatient vi sit 15 minutes Casandra Hassan [facility] Start: 12-31-2022 End: 01-01-[address] TOBIAS OSCAR . Facility:[facility] Start: 11-26-2022 End: 11-27-[address] TOBIAS OSCAR . Facility:[facility] Start: 11-08-2022 End: 11-09-[address] BOOM ROD Facility:[facility] Start: 10-28-2022 End: 10-28-[address] TOBIAS OSCAR . Facility:[facility] Start: 07-13-2022 End: 07-13-2022 ambulatory Michelle Ernandez Other [facility] Other Start: 07-13-2022 Office outpatient vi sit 15 minutes Michelle Ernandez [facility] Start: 03-07-2022 End: 03-08-[address] BOOM ROD Facility:[facility] Start: 01-25-2022 Encounter for genera l adult medical examination without abnormal findings DR BOOM ROD [facility] Start: 01-21-2022 End: 01-22-[address] BOOM ROD Facility:[facility] Start: 01-21-2022 End: 01-22-2022 Encounter for general adult medical examination without abnormal findings DR BOOM ROD Facility:[facility] Start: 07-06-2021 End: 07-06-2021 ambulatory Michelle Ernnadez Other [facility] Other Start: 07-06-2021 Office outpatient vi sit 15 minutes Michelle Oma [facility] Start: 06-17-2021 Office outpatient vi sit 15 minutes Michelle Oma [facility] Start: 05-31-2021 Office outpatient vi sit 25 minutes Michelle Oma [facility] Start: 08-27-2018 End: 08-27-2018 ambulatory BRENT KINNEY Facility:[facility] Procedures Date Procedure Procedure Detail Performing Clinician Start: 05-31-2021 Piperacillin/tazobactam Michelle Oma Other Start: 08-27-2018 extraction, erupted tooth or exposed root (elevation and/or forceps removal) BRENT TROCONIS Start: 08-27-2018 removal of impacted tooth - soft tissue BRENT TROCONIS Start: 08-27-2018 Urine test visual color cmprsn meths BRENT TROCONIS Immunizations Immunization Date Immunization Notes Care Provider Lillie rogers 03-03-2021 Do not use COVID-19 Pfizer 2 dose Manisha Marc Other [facility] Other 02-10-2021 Do not use COVID-19 Pfizer 2 dose Manisha Marc Other [facility] Other 08-03-2018 Toradol per 15 mg Michelle Dym ond Other [facility] Other Payers Date Payer Category Payer Self-pay [id number] 2022 Private Health Insurance 1990 Unknown [id number] 732 1991 Unknown [id number] [id number]. 593 1991 Unknown [id number] [id number]. 593 1991 Unknown [id number] [id number]. 593 1991 Unknown [id number] [id number]. 593 1991 Unknown [id number] [id number]. 593 1991 Unknown [id number] 2.16.840.1.681029.3.579.2. 593 1991 Unknown [id number] 2.16.840.1.450451.3.579.2. 1259 1991 Unknown [id number] [id number]. 196 1958 Medicaid [id number] 1958 Unknown [id number] Unknown [place] [id number] Unknown [id number] [id number]. 531 Unknown [id number] 2.16.840.1.305725.3.579.2. 531 Unknown [id number] 2.16.840.1.947182.3.579.2. 531 Unknown [id number]. 531 Social History Date Type Detail Facility Unknown if ever smoked [facility] Other Sex Assigned At Sex Assigned At Bir th [facility] Other Start: 12-07-2021 Tobacco smoking status FLIS Never smoked tobacco (finding) [facility] Start: 1990 Sex Assigned At Female F [facility] Clinical Notes 05-31-2021 to 07-15-2023 Note Date & Type Note Facility 07-15-2023 Evaluation note Encounter Date Diagnosis Assessment Notes Jun, Severe obesity (BMI >= 40) (ICD-10 - E66.01) Consultation date 03-25-2023, weight (pounds): 323.1 Follow-up date 05-20-2023, weight (pounds): 314.4 Follow-up date 07-15-2023, weight (pounds): 308.7 Plan is to take a weight centric approach to patient care in the treatment of excess adiposity and patient's weight related comorbidities.-Dis cussed the impact of excess adiposity on overall health and increased risk of associated health conditions-Discuss ed treatment options including lifestyle interventions and use of medications as an adjunct to amplify adherence to healthy behavior change-Discussed benefits, risks and side effects of medication. After informed discussion, plan will be to continue lifestyleOrders:-D iscussed cardiometabolic labs -Recommend to continue walking and swimming -Focus on protein intake 3 times daily. Avoid refined carbs -Patient endorses lightheadedness. Recommend to check blood pressure during episodes. She will further discuss with PCP. -Discussed increasing metformin dose to aid with insulin sensitivity. She will discuss with prescriberThis note was created with voice recognition software. Please excuse errors in police dispatcher. Jun, Dietary surveillance and counseling (ICD-10 - Z71.3) Discussed in detail high-protein, high-fiber, low-fat nutrition plan favoring calorie deficit and lean tissue mass preservation.-Lean protein sources at each meal supplemented with nutrient rich, low calorie density carbohydrates-Focu s on consuming calories earlier in the day versus later; breakfast and lunch should be largest meals-Evening meal should be high in protein and low in carbohydrate to maximize lipolysis overnight-Aim for a minimum of 30 g of protein per meal with breakfast, lunch and dinner with total daily intake reaching at least 100 g-If needed, supplement with whey protein powder or premade protein drink low in carbohydrate and low in fat-If hungry between meals, consider protein snack low in carbohydrate and low in fat Jun, Exercise counseling (ICD-10 - Z71.89) Absolute HGS at time of consultation (pounds): 59.6 Absolute HGS at time of follow-up (pounds): 52.4 Discussed in detail exercise interventions to promote lean tissue mass preservation during calorie restriction.-In addition to regularly scheduled endurance and resistance exercise, perform bouts of resistance exercise prior to meals using body weight, resistance bands or dumbbells/weights- Following meals, consider aerobic exercise, such as brisk walking, to improve blood sugars and to mitigate hyperinsulinemia Jun, PCOS (polycystic ovarian syndrome) (ICD-10 - E28.2) Currently on metformin 1000 mg total daily, managed by [facility] [facility] Jun, Asthma (ICD-10 - J45.909) Jun, Migraine (ICD-10 - G43.909) Jun, Primary hypertension (ICD-10 - I10) Currently on pharmacotherapy Potential for overtreatment given lightheadedness Jun, Other An additional 9 minutes was spent counseling the patient on behavior modification including proper nutrition and physical activity. [facility] Other 11-20-2023 Evaluation note* Encounter Date Diagnosis Assessment Notes Treatment Notes Treatment Clinical Notes Jun, Contact with and (suspected) exposure to covid-19 (ICD-10 - Z20.822) Jun, Nausea and vomiting, unspecified vomiting type (ICD-10 - R11.2) Nausea and vomiting: adult material was printed Drink plenty fluids, get plenty of rest. Take the Zofran as prescribed as needed for nausea and vomiting. Follow-up brat diet, (bananas, rice, applesauce, toast) until you feel better. You may take [id number] Imodium for diarrhea as needed. Avoid dairy foods as well as greasy fried foods. Follow-up with your physician if no improvement in 2 to 3 days. May return to work on Jun, Diarrhea, unspecified type (ICD-10 - R19.7) Diarrhea: adult home care material was printed [facility] Other 11-12-2023 Evaluation note* Encounter Date Diagnosis Assessment Notes Treatment Notes Treatment Clinical Notes Jun, Contact with and (suspected) exposure to covid-19 (ICD-10 - Z20.822) Jun, Acute sinusitis, recurrence not specified, unspecified location (ICD-10 - J01.90) Sinusitis home care material was printed Drink plenty fluids, get plenty of rest. Take the doxycycline and prednisone as prescribed until gone. Use the fluticasone nasal spray as prescribed and your symptoms improve. Use the albuterol inhaler as prescribed as needed for cough or shortness of breath. Take Tylenol or Motrin for aches pains or fevers. Off work until Friday. Follow-up with your family physician if no improvement in 2 to 3-day Jun, Bronchitis (ICD-10 - J40) [facility] Other 10-25-2023 Evaluation note* Encounter Date Diagnosis Assessment Notes Treatment Notes Treatment Clinical Notes May, Degenerative lumbar disc (ICD-10 - M51.36) L4-5 Pt would like a referral to pain management regarding her chronic back pain. Her last x-ray of the lumbar spine was completed 10/2022 at [facility]--reviewed and in scanned documents. Referral placed. May, Paresthesia of both hands (ICD-10 - R20.2) Based on PE findings, patient''s symptoms likely caused by carpal tunnel. Carpal tunnel syndrome is a nerve problem. It can cause tingling, numbness, weakness, or pain in the fingers, thumb, and hand. The median nerve and tendons run through a space in the wrist called the carpal tunnel. The repeated hand motions used in work and some hobbies and sports can put pressure on the nerve. Reduce the activity that causes your symptoms. If you cannot stop the activity, take frequent breaks to rest and stretch or change hand positions to do a task. Try switching hands, such as when using a computer mouse. Try to avoid bending or twisting your wrists. Take ibuprofen/Tylenol as needed for pain and discomfort. Put ice or a cold pack on affected wrist for 10 to 20 minutes at a time to ease pain. Put a thin cloth between the ice and your skin. Encouraged patient to continue wearing wrist splint to bed. Patient given list of ortho providers. Instructed pt to follow up with ortho if symptoms persist. Patient should follow up with ortho sooner if symptoms worsen. Patient verbalized understanding and agreement with tx plan. May, Bipolar 2 disorder (ICD-10 - F31.81) Referral placed to [facility] for medication mangement. [facility] Other 09-19-2023 Evaluation note* Encounter Date Diagnosis Assessment Notes Treatment Notes Treatment Clinical Notes Apr, Exposure to head lice (ICD-10 - Z20.7) Discussed with patient exam is without any signs of current lice infection. May return to work tomorrow. Patient completed next treatment yesterday. Patient verbalized understanding. [facility] Other 09-14-2023 Evaluation note* Encounter Date Diagnosis Assessment Notes Treatment Notes Treatment Clinical Notes Apr, Primary hypertension (ICD-10 - I10) [facility] Other 09-13-2023 Evaluation note* Encounter Date Diagnosis Assessment Notes Treatment Notes Treatment Clinical Notes Apr, Wellness examination (ICD-10 - Z00.00) Personalized health advice was given to the beneficiary including a plan for screenings discussed and provided. Advanced care planning reviewed and/or information given as requested. Additional counseling was provided here today in regards to general topics regarding health education were discussed in detail. All preventative issues were discussed including remaining a nonsmoker, colorectal screening, the importance of proper sleep for brain health maintenance, maintaining a heart-healthy balanced diet, recognizing and addressing signs of anxiety and depression, maintaining positive relationships with family and friends. Apr, Seizure disorder (ICD-10 - G40.909) Discussed siezures and that if these become more frequent that would need to refer back to neurology. Pt verbalizes understanding. Apr, Impaired fasting glucose (ICD-10 - R73.01) Will obtain records from [facility] for most recent labs. Patient is advised to work on healthy diet choices and appropriate servings, weight control, regular exercise as directed, reduced fat intake, and salt avoidance. Will also refer to weight loss management. Patient voiced understanding of this and agrees to this plan. Apr, Primary hypertension (ICD-10 - I10) To goal. Prior to your visit today we reviewed your chart and outlined the tetsing and treatment needed for your care. We discussed the possible complications of high blood pressure, including increased risk for heart disease, stroke, and kidney disease. Our goal is to keep your blood pressure below 130/85 (an preferably < 120/80) and maintain a healthy weight with a BMI less than 26. We are working together to acheive these goals with the following plan; healthier diet, increased activity and exercise, understanding your medicaitons, and your complaince. You have been given relevant education handouts. Apr, Anxiety (ICD-10 - F41.9) Remains stable on current therapeutic dose. Patient is encouraged to stay active and remain involved. Try to keep themselves busy. Take medication as directed and we will continue to monitor. Apr, Recurrent major depressive disorder, in partial remission (ICD-10 - F33.41) 2018 - had a suicide attmept -- has been on cymbalta since that time. Remains stable on current therapeutic dose. Patient is encouraged to stay active and remain involved. Try to keep themselves busy. Take medication as directed and we will continue to monitor. Apr, PCOS (polycystic ovarian syndrome) (ICD-10 - E28.2) Follows with Dr. Oscar and is on Metformin Apr, Mild intermittent asthma without complication (ICD-10 - J45.20) Asthma symptoms remain unchanged at this time. Patient denies any recent flare ups. Take medication as directed and will continue to monitor Apr, Other chronic pain (ICD-10 - G89.29) Reports an Xray was completed in the last 2-3 years will obtain to determine further treatment plan. Will call with further treatment, may refer to physical therapy. Seek immediate evaluation if experience continuous numbness/tingling in BLE, loss of bowel or bladder, or increase in pain. Pt. verbalizes understanding to treatment plan and agrees to treatment plan. Apr, Low back pain, unspecified (ICD-10 - M54.50) [facility] Other 09-12-2023 Evaluation note* Encounter Date Diagnosis Assessment Notes Treatment Notes Treatment Clinical Notes Apr, Obesity (ICD-10 - E66.9) Apr, BMI 50.0-59.9, adult (ICD-10 - Z68.43) Apr, Other Summary of Visi t: (A) Plate method with focus on prediabetes (B) How to read nutrition labels; compared Halo Top Icecream to Regular Ice cream (C) Addressed various nutrition related questions (how much fiber to eat, how often to eat red meat, etc.) (D) Importace of pairing protein/fiber with carbohydrate foods to regulate blood sugar and promote fullness OTHER: -Has lots of diarrhea; discussed impact of high fat foods on GI symptoms without gallbladder. Also discussed importance of soluble fiber. -Reports that she never used to be hungry and wouldn't eat until later in the day. She is now hungry frequently. Discussed listening to body and eating a snack with fiber + protein if going more than 3-4 hours between meals Patient set the following goals: 1) Have a source of protein with all meals and snacks. If going more than 3-4 hours between meals, ok to have a snack especially if hungry. 2) Aim for < 45 g carb/meal [facility] Other 08-08-2023 Evaluation note* Encounter Date Diagnosis Assessment Notes Treatment Notes Treatment Clinical Notes Mar, Severe obesity (BMI >= 40) (ICD-10 - E66.01) Consultation date 03-25-2023, weight (pounds): 323.1Plan is to take a weight centric approach to patient care in the treatment of excess adiposity and patient's weight related comorbidities.-Discuss ed the impact of excess adiposity on overall health and increased risk of associated health conditions-Discussed treatment options including lifestyle interventions and use of medications as an adjunct to amplify adherence to healthy behavior change-Discussed benefits, risks and side effects of medication. After informed discussion, plan will be to try lifestyleOrders:-Histo ry of prediabetes with recent A1c in January 2023 of 5.5%-Follow up in clinic in 8 weeksThis note was created with voice recognition software. Please excuse errors in police dispatcher. Mar, Dietary surveillance and counseling (ICD-10 - Z71.3) Discussed in detail high-protein, high-fiber, low-fat nutrition plan favoring calorie deficit and lean tissue mass preservation.-Lean protein sources at each meal supplemented with nutrient rich, low calorie density carbohydrates-Focus on consuming calories earlier in the day versus later; breakfast and lunch should be largest meals-Evening meal should be high in protein and low in carbohydrate to maximize lipolysis overnight-Aim for a minimum of 30 g of protein per meal with breakfast, lunch and dinner with total daily intake reaching at least 100 g-If needed, supplement with whey protein powder or premade protein drink low in carbohydrate and low in fat-If hungry between meals, consider protein snack low in carbohydrate and low in fat -Nutrition goals: Avoid sugary sweetened beverages such as sweet tea, replace ice cream with Lebanese yogurt, use protein shake in the a.m. Mar, Exercise counseling (ICD-10 - Z71.89) Absolute HGS at time of consultation (pounds): 59.6Discussed in detail exercise interventions to promote lean tissue mass preservation during calorie restriction.-In addition to regularly scheduled endurance and resistance exercise, perform bouts of resistance exercise prior to meals using body weight, resistance bands or dumbbells/weights-Foll owing meals, consider aerobic exercise, such as brisk walking, to improve blood sugars and to mitigate hyperinsulinemia Mar, PCOS (polycystic ovarian syndrome) (ICD-10 - E28.2) Mar, Asthma (ICD-10 - J45.909) Mar, Migraine (ICD-10 - G43.909) Mar, Insulin resistance (ICD-10 - E88.81) Discussed all options for obesity management including lifestyle, medication, bariatric surgery Patient would like to use bariatric surgery as last resort Mar, Other 64 minutes was spent reviewing patient specific healthcare information, interviewing, counseling, and communicating with the patient, and documenting clinical information. [facility] Other 06-27-2023 Evaluation note* Encounter Date Diagnosis Assessment Notes Treatment Notes Treatment Clinical Notes Jan, Contact with and (suspected) exposure to covid-19 (ICD-10 - Z20.822) COVID PCR neg Jan, Viral URI with cough (ICD-10 - J06.9) Discussed with patient exam and history is consistent with viral upper respiratory infection. Discussed viral nature of illness and typical duration of 7 to 14 days. Advised antibiotics unfortunately do not treat viral illnesses. May use symptomatic treatment such as dayquil/nyquil or similar. May use Tylenol/ibuprofen for any pain/fever. Follow-up with PCP if not improving over the next 7 days, sooner if significantly worsening symptoms. [facility] Other 11-26-2022 Evaluation note* Encounter Date Diagnosis Assessment Notes Treatment Notes Treatment Clinical Notes Jun, Contact with and (suspected) exposure to other viral communicable diseases (ICD-10 - Z20.828) Jun, Viral illness (ICD-10 - B34.9) Viral upper respiratory infection: adult home care material was printed Drink plenty fluids, get plenty of rest. Take Tylenol or Motrin as needed for aches pains or fevers. Follow-up with your family physician if no improvement in 2 to 3 days. Off work today and tomorrow [employer] Other 11-19-2021 Evaluation note* Encounter Date Diagnosis Assessment Notes Treatment Notes Treatment Clinical Notes Jun, Contact with and (suspected) exposure to other viral communicable diseases (ICD-10 - Z20.828) Jun, COVID-19 (ICD-10 - U07.1) Jun, Other Additional time spent conducting pre-visit phone call, screening for symptoms, instructions on social distancing, application and removal of PPE, and cleaning of examination room, equipment and supplies was preformed. Patient education given for testing methodology and results. Patient care instructions given in writting by [employer] document. [employer] Other 10-31-2021 Evaluation note* Encounter Date Diagnosis Assessment Notes Treatment Notes Treatment Clinical Notes May, Contact with and (suspected) exposure to other viral communicable diseases (ICD-10 - Z20.828) May, Viral upper respiratory illness (ICD-10 - J06.9) Take the prednisone as prescribed until gone. Use the albuterol inhaler as prescribed as needed for cough or shortness of breath. Consider using Chloraseptic throat spray or hot tea with honey for your sore throat. Follow-up with your family physician if no improvement in 2 to 3 days to consider a PCR Covid test. May, Sore throat (ICD-10 - J02.9) May, History of asthma (ICD-10 - Z87.09) May, Other Additional time spent conducting pre-visit phone call, screening for symptoms, instructions on social distancing, application and removal of PPE, and cleaning of examination room, equipment and supplies was preformed. Patient education given for testing methodology and results. Patient care instructions given in writting by [employer] document. [employer] Other 10-14-2021 Evaluation note* Encounter Date Diagnosis Assessment Notes Treatment Notes Treatment Clinical Notes May, Dysuria (ICD-10 - R30.0) May, Urinary tract infection, site not specified (ICD-10 - N39.0) May, Hematuria, unspecified (ICD-10 - R31.9) [employer] Other Evaluation noteNo InformationNort [employer] Other Evaluation noteNo assessment information available [facility] Work Phone: history general Narrative - Reported* Type Description Date Medical History Asthma Medical History Blood transfusion Medical History Seizure Disorder Medical History migraine headache w/out Aura Medical History herpes Medical History PCOS Medical History hypertensive heart disease Medical History tachycardia Medical History pre diabetes Surgical History Colposcopy Surgical History cholecystectomy Surgical History wisdom teeth Hospitalization History Pneumonia Hospitalization History Hospitalized for blood l oss 2010 [employer] Other history general Narrative - Reported* Type Description Date Medical History Asthma Medical History Blood transfusion Medical History Seizure Disorder Medical History migraine headache w/out Aura Medical History herpes Medical History PCOS Medical History hypertensive heart disease Medical History tachycardia Medical History pre diabetes Surgical History Colposcopy Surgical History cholecystectomy Surgical History wisdom teeth Surgical History laparoscopy Hospitalization History Pneumonia Hospitalization History Hospitalized for blood l oss 2010 [employer] Other history general Narrative - Reported* Type Description Date Medical History Asthma Medical History Blood transfusion Medical History Seizure Disorder Medical History migraine headache w/out Aura Medical History herpes Medical History PCOS Medical History hypertensive heart disease Medical History tachycardia Medical History pre diabetes Surgical History Colposcopy Surgical History cholecystectomy Surgical History wisdom teeth Surgical History laparoscopy Surgical History hysteroscopy 01/2023 Surgical History D&C 01/2023 Hospitalization History Pneumonia Hospitalization History Hospitalized for blood l oss 2010 [employer] Other history general Narrative - Reported* Type Description Date Medical History Asthma Medical History Blood transfusion Medical History Seizure Disorder Medical History migraine headache w/out Aura Medical History herpes Medical History PCOS Medical History hypertensive heart disease Medical History tachycardia Medical History pre diabetes Medical History Asthma, unspecified Medical History Amenorrhea Surgical History Colposcopy Surgical History cholecystectomy Surgical History wisdom teeth Surgical History laparoscopy Surgical History hysteroscopy 01/2023 Surgical History D&C 01/2023 Hospitalization History Pneumonia Hospitalization History Hospitalized for blood l oss 2010 [employer] Other [employer] general Narrative - Reported* Type Description Date Medical History Asthma Medical History Blood transfusion Medical History Seizure Disorder Medical History migraine headache w/out Aura Medical History herpes Medical History PCOS Medical History hypertensive heart disease Medical History tachycardia Medical History pre diabetes Medical History Asthma, unspecified Medical History Amenorrhea Medical History Menorrhagia Surgical History Colposcopy Surgical History cholecystectomy Surgical History wisdom teeth Surgical History laparoscopy Surgical History hysteroscopy 01/2023 Surgical History D&C 01/2023 Hospitalization History Pneumonia Hospitalization History Hospitalized for blood l oss 2010 [employer] Other [facility] general Narrative - Reported* Type Description Date Medical History Asthma Medical History Blood transfusion Medical History Seizure Disorder Medical History migraine headache w/out Aura Medical History herpes Medical History PCOS Medical History hypertensive heart disease Medical History tachycardia Medical History pre diabetes Medical History Asthma, unspecified Medical History Amenorrhea Medical History Menorrhagia Medical History Bipolar 2 Medical History Bi Polar Surgical History Colposcopy Surgical History cholecystectomy Surgical History wisdom teeth Surgical History laparoscopy Surgical History hysteroscopy 01/2023 Surgical History D&C 01/2023 Hospitalization History Pneumonia Hospitalization History Hospitalized for blood l oss 2010 [employer] Other His[facility] general Narrative - Reported* Type Description Date Medical History Asthma Medical History Blood transfusion Medical History Seizure Disorder Medical History migraine headache w/out Aura Medical History herpes Medical History PCOS Medical History hypertensive heart disease Medical History tachycardia Medical History pre diabetes Medical History Asthma, unspecified Medical History Amenorrhea Medical History Menorrhagia Medical History Bipolar 2 Surgical History Colposcopy Surgical History cholecystectomy Surgical History wisdom teeth Surgical History laparoscopy Surgical History hysteroscopy 01/2023 Surgical History D&C 01/2023 Hospitalization History Pneumonia Hospitalization History Hospitalized for blood l oss 2010 [employer] Other Reason for referral (narrative)* Reason *FU 06/20 would li ke a referral to pscyiatrist -- was recently diagnosed with bipolar and would like medication management. Diagnosis 1 Bipolar 2 disorder ( F31.81) Referral Organization [facility] Damion tsang Referring Provider First Name Manisha Referring Provider Last Name Rohrbacher Referring Provider Specialty Nurse Pract itioner Referred Organization [facility] Enedelia Referred Address [address],[place] ,[place],[address] Referred Provider Specialty Psychiatry Referral Priority Routine General Notes Paola Henderson 01:25:30 PM >received today, not sure if [facility] does medication management, waiting for notes to be locked Masonzafar Paola 06/13/2023 10:34:39 AM >notes locked, referral faxed Clinical Notes p: [phone] f: [phone] [place] [facility] Reason *FU 06/20 would sherif groves a referral to pain management for other options for pain control for back pain Diagnosis 1 Degenerative lumbar disc (M51.36) Referral Organization [facility] sharan Referring Provider First Name Manisha Referring Provider Last Name Tari Referring Provider Specialty Nurse Noble orozco Referred Organization [facility] Referred Provider Yrn Parsons Referred Address [address], [place],[address] Referred Provider Specialty Pain Medicin e Referral Priority Routine General Notes Paola Henderson 01:21:23 PM >received today, waiting for notes to be locked MasonPaola stephen 06/13/2023 10:25:26 AM >notes locked, referral faxed Clinical Notes f: [phone] [employer] Other Summary Purpose Family History No Family History Records FoundNo Family History Records FoundNo Family History Records FoundNo Family History Records FoundNo Family History Records Found Advance Directives No Advanced Directives Records Found Advance Directive Response Recorded Date/ Time Advance Directives No April 3:36pm Chief Complaint and Reason for Visit Chief Complaint Obesity E66.01 E28.2 I10 E66.01 E28.2 I10 Additional Source Comments INFORMATION SOURCE (unrecogn ized section and content) DATE CREATED AUTHOR 08/27/2021 [employer] DATE CREATED AUTHOR AUTHOR'S ORGANIZ ATION 01/01/2023 [facility] DATE CREATED AUTHOR AUTHOR'S ORGANIZ ATION 07/26/2023 [facility] DATE CREATED AUTHOR AUTHOR'S ORGANIZ ATION 07/28/2023 [facility] DATE CREATED AUTHOR AUTHOR'S ORGANIZ ATION 08/01/2023 [facility] REASON FOR VISIT (unrecogniz ed section and content) DYSURIA, FREQUENCY#5 GOLD MORENO V- HOARSE, THROAT SORE, COUGH , EAR PAIN,#13 GOLD CHEVY , LOSS OF TAST AND SMELL, CONGESTION X 3 DAYSB/A, CLAMINESS, NAUSEACOVID TEST, SYMPTOMATICWMN ReferralInitial WMNWMN exerciseNo InformationForm for WorkRefillCHECKING FOR HEAD LICECHOL CONCERNS, BIOPLAR DXEXPOSED TO COVID, SYMPTOMS, BODY ACHES, CHEST HURTS, FEVERS, MUCUS WHEN COUGH, CAN'T SMELLL OR TASTE, HEADACHESNEEDS TO BE CHECK FOR THE FLUWMN Care Teams (unrecognized sec tion and content) Team Status: Active Member Role Status Dates Manisha Marc APRN [employer]-C Primary Care Provider Active Team Status: Active Member Role Status Dates Manisha Marc APRN NP-C Primary Care Provider, Attending Provider Active Team Status: Inactive Member Role Status Dates Manisha Marc APRN [employer] Primary Care Provider Active Celio Mullins , DO Attending Provider Active Goals (unrecognized section and content) Goals may be documented in a n alternate section FOR RECORDS PERTAINING TO PATIENTS WHO ARE OR HAVE BEEN ENROLLED IN A CHEMICAL DEPENDENCY/SUBSTANCEABUSE PROGRAM, SOME INFORMATION MAY BE OMITTED. This clinical summary was aggregated from multiple sources. Caution should be exercised in using it in the provision of clinical care. This summary normalizes information from multiple sources, and as a consequence, information in this document may materially change the coding, format and clinical context of patient data. In addition, data may be omitted in some cases. CLINICAL DECISIONS SHOULD BE BASED ON THE PRIMARY CLINICAL RECORDS. [employer] [facility]. provides no warranty or guarantee of the accuracy or completeness of information in this document.
--- NOTE | 2023-08-14 11:35 | P.CN_ITS ---
Consult Note: HPI Data of Consult Patient: known to practice within the last 3 years Requesting Physician: Vera Blanco NP Primary Care Provider: CHRIS LOPEZ Consult Narrative Reason for consult: f/u Narrative: Ashly Mehta a pleasant 32 year old female presents for evaluation and management of low back pain. Patient has noticed this low back pain since a fall at work in 2018 where she injured her ankle and had to wear a boot, noticed the pain started after she stopped wearing the boot. Today rating pain 2/10 in low back, is intermittent. Nate increased with pushing, pulling, standing, walking, activity, decreased with sleep sitting and lying down. No numbness tingling or weakness. Aleve PRN without relief, PT last over a year ago. Has tried chiropractor care without success. Currently on cymbalta 120mg qd, gabapentin 300mg BID, tylenol 1500mg BID-TID. Recently underwent bilateral L4/5 L5/S1 facet medial branch block #1 with 100% improvement immediately following and 2 hours after the procedure. cc:: CC: Vera Blanco NP Review of Systems ROS Status of ROS 10 or more systems reviewed and unremark able except as noted in history and below Musculoskeletal Reports: back pain PFSH PFSH Medical History Abnormal uterine bleeding (AUB) ?N93.9 - Abnormal uterine and vaginal bleeding, unspecified (ICD-10) Anemia ?D64.9 - Anemia, unspecified (ICD-10) Anxiety ?F41.9 - Anxiety disorder, unspecified (ICD-10) Arthritis ?M19.90 - Unspecified osteoarthritis, unspecified site (ICD-10) Asthma ?J45.909 - Unspecified asthma, uncomplicated (ICD-10) Back pain ?M54.9 - Dorsalgia, unspecified (ICD-10) COVID-19 ?U07.1 - COVID-19 (ICD-10) Depression ?F32.A - Depression, unspecified (ICD-10) GERD (gastroesophageal reflux disease) ?K21.9 - Gastro-esophageal reflux disease without esophagitis (ICD-10) Herpes genitalia ?A60.00 - Herpesviral infection of urogenital system, unspecified (ICD-10) Hypertension ?I10 - Essential (primary) hypertension (ICD-10) Menorrhagia ?N92.0 - Excessive and frequent menstruation with regular cycle (ICD-10) Palpitations ?R00.2 - Palpitations (ICD-10) PCOS (polycystic ovarian syndrome) ?E28.2 - Polycystic ovarian syndrome (ICD-10) Prediabetes ?R73.03 - Prediabetes (ICD-10) Seizures ?R56.9 - Unspecified convulsions (ICD-10) Sleep apnea ?G47.30 - Sleep apnea, unspecified (ICD-10) Surgical History History of laparoscopy ?Z98.890 - Other specified postprocedural states (ICD-10) History of colposcopy ?Z98.890 - Other specified postprocedural states (ICD-10) History of wisdom tooth extraction ?K08.409 - Partial loss of teeth, unspecified cause, unspecified class (ICD- 10) History of cholecystectomy ?Z90.49 - Acquired absence of other specified parts of digestive tract (ICD- 10) Family History Other Family history of heart disease Family history of stroke Social History Within the past year, how often did you have a drink containing alcohol: monthly or less 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 Highest level of school completed/degree received: Associate degree: occupational, technical, vocational program Meds Home Medications and Allergies Home Medications Medication Instructions Recorded Confirmed Type albuterol sulfate 90 mcg/actuation 2 inh inhalation Q6H PRN shortness 01/17/23 07/21/23 History aerosol inhaler (ProAir HFA) of breath or wheezing duloxetine 30 mg capsule,delayed 120 mg PO QDAY 01/17/23 07/21/23 History release gabapentin 300 mg capsule 300 mg PO Q12H PRN pain 01/17/23 07/21/23 History lisinopril 20 mg tablet 20 mg PO DAILY 01/17/23 07/21/23 History metformin 500 mg tablet 500 mg PO BID 01/17/23 07/21/23 History hydroxyzine pamoate 25 mg capsule 25 mg PO TID 06/25/23 07/21/23 History (Vistaril) valacyclovir 1 gram tablet 1,000 mg PO BID 06/25/23 07/21/23 History Allergies Allergy/AdvReac Type Severity Reaction Status Date / Time amoxicillin Allergy Rash Verified 07/21/23 09:08 cefaclor Allergy Rash Verified 07/21/23 09:08 erythromycin base Allergy Hives Verified 07/21/23 09:08 Exam Constitutional Documenting provider has reviewed patient's vital signs: yes Common normals: no apparent distress, oriented x3, healthy appearing, alert and well nourished General appearance: cooperative HENMT Common normals: normocephalic, hearing grossly normal bilaterally and moist oral mucous membranes Head and scalp: normocephalic Eye Common normals: PERRL Pupil: PERRL Neck & C-Spine Common normals: full ROM General: normal visual inspection Chest Common normals: inspection of chest normal Respiratory Common normals: normal respiratory effort, no retractions and no use of accessory muscles Back & Pelvis Lumbar spine/lower back: ROM limited, pain with ROM and straight leg raise negative bilaterally Sacroiliac joints: SI joint(s) abnormal (bilateral marissa, thigh thrust) Other: bilateral facet loading, right worse than left pain over L4-5 L5-S1 facets Neuro Common normals: oriented x3, CN's II-XII intact bilaterally, moves all extremities, no focal motor deficits, no sensory deficits noted and deep tendon reflexes 2+ bilaterally Sensorium/orientation: alert Motor exam: strength 5/5 throughout and no movement abnormalities noted Psych Common normals: mental status grossly normal, thought process normal, cooperative, affect normal, speech normal and activity/motor behavior normal Speech: normal speech Thought process: normal thought process Results Additional Findings Additional findings: I have checked an OARRS report on this patient today and there are no aberrancies noted in the prescribing history.?? A drug screen was completed and reviewed within the last year, and if there has not been a drug screen completed we ordered one today to monitor higher risk, state monitored pain medication use. As part of providing excellent, safe, comprehensive care, the following was c ompleted at our patient's visit: 1. A medication reconciliation and review to ensure accurate knowledge of current/active medications, including asking our patients to inform us about any [id number] medications or herbal remedies/nutritional supplements/alternative remedies. 2. A review to specifically ensure our patients have had annual screening for: elevated body mass index (BMI), tobacco use, screening for depression, and screening for unhealthy alcohol use. When screening is concerning, patients are provided with education and the specific recommendation to discuss the concerning health issue and treatment options with their primary care provider. Assessment and Plan Assessment and Plan (1) Lumbar spondylosis: Assessment and Plan: The patient has had over 3 months of moderate to severe low back pain with functional impairment and inadequate response to conservative care including NSAIDS (unless there are contraindication such as concurrent blood thinners), multiple oral or topical pain medications, and home exercise program/physical therapy.?Patient has completed >6 weeks of guided home exercise program and/or formal physical therapy program without relief of their symptoms.? I have reviewed the imaging of the lumbar spine and no red flags were ident ified.? The imaging reveals radiographic findings consistent with lumbar spondylosis The Oswestry Disability Index was completed, and the patient scored a 27%.? The patient noted the following:?? moderate to severe pain, pain with standing and walking, pain limiting heavy weights We discussed the risks and benefits of the procedure with the patient, and we are NOT planning on using sedation as outlined in the guidelines from Medicare unless there is a documented reason that sedation would be strongly recommended.?? ?The procedure will be completed with fluoroscopic guidance.? (2) Obesity: Assessment and Plan: The patient was counseled that proper dietary changes and consistent participation in a home exercise plan can lead to weight loss. Weight loss can help to improve functionality in patients with chronic pain.? (3) Back pain: (4) GERD (gastroesophageal reflux disease): Assessment and Plan: limit NSAIDs (5) Encounter for medication monitoring: Plan bilateral L4-5 L5-S1 MBB #2 under fluoroscopy working towards thermal RFA continue HEP f/u 1 week after injection
== END 2023-08-14 11:11 | disposition home or self-care (01) ==
LOC: PM 11:10
PROVIDERS: PCP Nurse Practitioner Family; Visit Provider Nurse Practitioner
DX: M47.816 Spondylosis without myelopathy or radiculopathy, lumbar region (principal); E66.9 Obesity, unspecified; M54.50 Low back pain, unspecified; K21.9 Gastro-esophageal reflux disease without esophagitis; Z51.81 Encounter for therapeutic drug level monitoring
CPT/HCPCS: G0463

== ENCOUNTER 2023-08-20 12:58 | Outpatient (OUT) | payer OTHER, SELFPAY ==
--- OUTSIDE RECORDS SUMMARY | 2023-08-20 13:02 | XMS_ITS | CCD ---
Author Name Unknown Address [address] [place] [address] Organization [facility] Care Team Providers Care Dance Hall Host/Hostess Name Role Phone BRENT KINNEY Referring Unavailable BRENT KINNEY Attending Unavailable BRENT KINNEY Admitting Unavailable Oma Michelle Unavailable VIOLA, DR NUR Consulting Unavailable FRUITLAND, DR NUR Admitting Unavailable FRUITLAND, DR NUR Primary Care Unavailable HOUSE, DR NUR Attending Unavailable ZIEBER, DR SUGEY Ibrahim Consulting Unavailable FREDA ., DR COLLADO Admitting Unavailable HOUSE, DR NUR Primary Care Unavailable FREDA ., DR COLLADO Attending Unavailable FREDA ., DR COLLADO Consulting Unavailable HOUSE, DR NUR Consulting Unavailable HOUSE, DR NUR Primary Care Unavailable HOUSE, DR [...] Unavailable Celio Mullins Unavailable Manisha Marc Unavailable [phone] ROSITA Marc Primary Care Provider ROSITA Marc Attending Provider DO Celio Mullins Attending Provider MELA ANDERSON Attending Unavailable Garret CROWLEY, Bud Denis Attending Unavailable Celio Mullins Attending Unavailable Celio Mullins Admitting Unavailable Manisha Marc Primary Care Unavailable Manisha Marc Primary Care Unavailable Edward Gilmore Attending Unavailab le Edward Gilmore Admitting Unavailab le Rohrbacher Manisha Primary Care Unavailable Rohrbacher, Manisha Admitting Unavailable Tari Manisha Attending Unavailable Celio Mullins Attending Unavailable Celio Mullins Admitting Unavailable Manisha Marc Primary Care Unavailable Allergies Allergy Classification Reported Allergen(s) Allergy Type Date of Onset Reaction(s) Facility (20 sources) Amoxicillin; Translations: [AMOXICILLIN] Drug Allergy 07-08-[address] [facility] Repository (3 sources) Cefaclor; Translations: [CEFACLOR] Drug Allergy 04-14-20 [address] [facility] Repository (19 sources) Erythromycin; Translations: [ERYTHROMYCIN] Drug Allergy 04-14-[address] [facility] Repository (19 sources) Cefaclor; Translations: [Ceclor] Drug Allergy 04-17-20 15 [facility] Repository (2 sources) Erythromycin Drug Allergy 04-17-20 15 Unknown Reaction [facility] Repository (2 sources) Cephalosporins (Antibiotic); Translations: [Cephalosporins] Allergy to substance 12-10-19 22 Unknown Reaction [facility] (2 sources) Lactulose; Translations: [lactulose] Drug Allergy 02-12-20 20 Unknown Reaction [facility] (1 source) Erythromycin Drug Allergy 02-12-20 20 [facility] Repository Medications Current Medications Medication Drug Class(es) Dates Sig (Normalized) Sig (Original) [id number] 200 actuat albuterol 0.09 mg/actuat metered dose [...] as needed Inhalation every 4 hrs Active cariprazine 1.5 mg oral capsule (2 sources) Atypical Antipsychotic take 1 capsule by mouth every twenty-four hours Vraylar 1.5 MG 1 capsule Orally Once a day Active doxycycline hyclate 100 mg oral tablet (3 sources) Tetracycline-class Drug Start: 06-29-20 23 take 1 tablet by mouth every twelve hours Doxycycline Hyclate 100 MG 1 tablet Orally Twice a day for 10 day(s) Jun, Active DULoxetine 30 mg delayed release oral capsule (19 sources) Serotonin and Norepinephrine Reuptake Inhibitor Start: 02-17-20 take 90 mg by mouth once daily [...] Jun, Active gabapentin 300 mg oral capsule (13 sources) Anti-epileptic Agent Start: 02-12-2020 take 300 mg by mouth three times daily Gabapentin Active 300 MG PO Three times daily February 11, 2020 11:00pm take 1 capsule by mo uth once daily as needed Gabapentin 300 MG 1 capsule Orally Once a day PRN for 30 days PRN Active hydrOXYzine pamoate 25 mg oral capsule (18 sources) Antihistamine Start: 12-07-2021 take 25 mg by mouth three times daily Hydroxyzine Pamoate Active 25 MG PO Three times daily December 06, 2021 11:00pm Vistaril 25 MG 1 Capsule prn Orally 2-3 times per day Active take 1 capsule by mouth every ei ght hours Vistaril 25 MG 1 capsule as needed Orally every 8 hrs Not-Taking lisinopril 20 mg oral tablet (19 sources) Angiotensin Converting Enzyme Inhibitor Start: 12-07-2021 take 20 mg by mouth once daily Lisinopril Active 20 MG PO Daily December 06, 2021 11:00pm take 1 tablet by miranda every twenty-four hours Lisinopril 10 MG 1 tablet Orally Once a day for 90 days Active Lisinopril Activ e melatonin 10 mg oral tablet (12 sources) take 1 tablet by miranda every twenty-four hours Melatonin 10 MG 1 tablet at bedtime as needed Orally Once Daily PRN Active take 1 tablet by miranda once daily at bedtime as needed Melatonin 10 MG 1 tablet at bedtime as needed Orally Once Daily PRN Active Melatonin PRN Ac tive metFORMIN hydrochloride 500 mg oral tablet (14 sources) Biguanide Start: 02-12-2020 take 500 mg by mouth twice daily Metformin Active 500 MG PO Twice daily February 11, 2020 11:00pm Metformin & Diet Manage Prod (5 sources) Metformin & Diet Manage Prod Active Multivitamin preparation (13 sources) Start: 12-07-2021 take 1 tablet by [...] May, Active ondansetron 4 mg oral tablet (4 sources) Serotonin-3 Receptor Antagonist Start: 07-07-2023 take [...] May, Active valACYclovir 1000 mg oral tablet (19 sources) Herpesvirus Nucleoside Analog DNA Polymerase Inhibitor, [...] BEDTIME) Oral for 10 Days PRN Active valACYclovir HCl 1 GM TAKE 1 TABLET [...] daily Aripiprazole Discontinued 5 MG PO Daily 30 March 04, 2020 11:00pm December 07, 2021 9:45am Savanna Masterson-Cate Corrales Active 24 hr buPROPion hydrochloride 150 mg [...] 2020 11:00pm February 12, 2020 7:18pm Ketorolac (15 sources) Nonsteroidal Anti-inflammatory Drug, Cyclooxygenase Inhibitor Start: [...] Translations: [Other specified counseling] Episodic Anxiety disorders (14 sources) Anxiety; Translations: [Anxiety disorder, unspecified] Chronic [...] source) Impaired fasting glucose Episodic Epilepsy; convulsions (10 sources) Seizure disorder; Translations: [Epilepsy, unspecified, not intractable, without status epilepticus] Chronic Essential hypertension (18 sources) Essential hypertension; Translations: [Essential (primary) hypertension] [...] with vomiting, unspecified Episodic Other endocrine disorders (13 sources) Polycystic ovary syndrome; Translations: [Polycystic ovarian syndrome] Chronic Other endocrine disorders (4 sources) Polycystic ovarian syndrome; Translations: [Polycystic ovarian syndrome] Onset: 07-01-2023 Chronic Other female genital disorders (4 sources) Abnormal uterine and vaginal bleeding, unspecified; Translations: [ABNORMAL UTERINE VAGINAL BLEED UNS] Onset: 11-26-2022 Chronic Other gastrointestinal disorders (1 source) Diarrhea, unspecified Episodic Other nervous system disorders (13 sources) Chronic pain; Translations: [Other chronic pain] Chronic Other nervous system disorders (1 source) Other chronic pain Chronic Other nervous system disorders (7 sources) Paresthesia of skin; Translations: [Paresthesia of both hands] Episodic Other nutritional; endocrine; and metabolic disorders (13 sources) Body mass index 30+ - obesity; Translations: [Body mass index (BMI) 33.0-33.9, adult] Chronic Other nutritional; endocrine; and metabolic disorders (12 sources) Morbid obesity; Translations: [Morbid (severe) obesity due to excess calories] Chronic Other nutritional; endocrine; and metabolic disorders (11 sources) Insulin resistance; Translations: [Metabolic syndrome] Chronic Other nutritional; endocrine; and metabolic disorders (3 sources) Morbid (severe) obesity due to excess calories; Translations: [Morbid (severe) obesity due to excess calories] Onset: 07-01-2023 Chronic Other nutritional; endocrine; and metabolic disorders (2 sources) Metabolic syndrome; Translations: [Insulin resistance] Chronic Other nutritional; endocrine; and metabolic disorders (18 sources) Body mass index 40+ - severely obese; Translations: [Body mass index (BMI) 40.0-44.9, adult] Chronic Other nutritional; endocrine; and metabolic disorders (18 sources) Obesity; Translations: [Obesity, unspecified] Chronic Other nutritional; endocrine; and metabolic disorders (4 sources) Obesity, unspecified; Translations: [Obesity, unspecified classification, unspecified obesity type, unspecified whether serious comorbidity present] Chronic Other nutritional; endocrine; and metabolic disorders (3 sources) Body mass index (BMI) 50.0-59.9, adult; [...] Spondylosis; intervertebral disc disorders; other back problems (12 sources) Sacroiliitis, not elsewhere classified; Translations: [Other intervertebral disc degeneration, lumbar region] Onset: 11-08-2022 Chronic Unclassified (1 source) Dietary counseling and surveillance; Translations: [Dietary counseling and surveillance] Onset: 08-19-2023 Viral infection (1 source) Viral infection, unspecified [...] (COVID-19) RNA SURI+probe Ql (Unsp spec) Negative [employer] [facility] [employer] Other COVID + FLU Quick Testing Negative [employer] Other Alanine aminotransferase [En zymatic activity/volume] in Serum or PlasmaOrdered By: Celio Mullins on 07-03-2023 ALT [Catalytic activity/Vol] 22 U/L 7-52 [facility] Albumin [Mass/volume] in Ser um or Plasma by Bromocresol green (BCG) dye binding methoOrdered By: Celio Mullins on 07-03-2023 Albumin BCG dye [Mass/Vol] 4.4 g/dL 3.5-5.7 [facility] Alkaline phosphatase [Enzyma tic activity/volume] in Serum or PlasmaOrdered By: Celio Mullins on 07-03-2023 ALP [Catalytic activity/Vol] 68 U/L 34-104 [facility] Aspartate aminotransferase [ Enzymatic activity/volume] in Serum or PlasmaOrdered By: Celio Mullins on 07-03-2023 AST [Catalytic activity/Vol] 18 U/L 13-39 [facility] Bilirubin.total [Mass/volume ] in Serum or PlasmaOrdered By: Celio Mullins on 07-03-2023 Bilirubin [Mass/Vol] 0.4 mg/dL 0.3-1.0 [facility] Calcium [Mass/volume] in Ser um or PlasmaOrdered By: Celoi Mullins on 07-03-2023 Calcium [Mass/Vol] 9.4 mg/dL 8.6-10.3 [facility] Carbon dioxide, total [Moles /volume] in Serum or PlasmaOrdered By: Celio Mullins on 07-03-2023 CO2 [Moles/Vol] 30.1 mmol/L 21.0-31.0 [facility] Chloride [Moles/volume] in S marta or PlasmaOrdered By: Celio Mullins on 07-03-2023 Chloride [Moles/Vol] 105 mmol/L 98-107 [facility] Cholesterol [Mass/volume] in Serum or PlasmaOrdered By: Celio Mullins on 07-03-2023 Cholesterol [Mass/Vol] 126 mg/dL 140-200 [facility] Comment on above: Chol less than 200 m g/dl low riskChol 201-239 mg/dl borderline riskChol 240 mg/dl and greater high risk Cholesterol in LDL Calc [Mas s/Vol]Ordered By: Celio Mullins on 07-03-2023 Cholesterol in LDL [Mass/Vol] 69 mg/dL 0-100 [facility] Comment on above: LDL ATP III CLASSIFI CATIONLDL less than 100 mg/dL OptimalLDL 100-129 mg/dL Near or above optimalLDL 130-159 mg/dL Borderline highLDL 160-189 mg/dL HighLDL greater than 189 mg/dL Very high Cholesterol in VLDL Calc [Ma ss/Vol]Ordered By: Celio Mullins on 07-03-2023 Cholesterol in VLDL [Mass/Vol] 18 mg/dL [facility] Comprehensive Metabolic Pane landon 07-03-2023 Albumin [Mass/Vol] 4.4 g/dL Normal 3.5-5.7 [facility] Comment on above: Performed By: #### L IPID, CMP #### [facility] [address] Albumin/Globulin [Mass ratio] 1.4 {ratio} Normal [facility] Comment on above: Performed By: #### L IPID, CMP #### [facility] [address] ALP [Catalytic activity/Vol] 68 U/L Normal 34-104 [facility] Comment on above: Performed By: #### L IPID, CMP #### [facility] [address] [place] [address] [place] ALT [Catalytic activity/Vol] 22 U/L Normal 7-52 [facility] Comment on above: Performed By: #### L IPID, CMP #### [facility] [address] [place] [id number] [place] Anion gap [Moles/Vol] 10.2 mmol/L Normal 6.0-15.0 [facility] Comment on above: Performed By: #### L IPID, CMP #### [facility] [address] [place] [id number] [place] AST [Catalytic activity/Vol] 18 U/L Normal 13-39 [facility] Comment on above: Performed By: #### L IPID, CMP #### [facility] [address] [place] [address] [place] Bilirubin [Mass/Vol] 0.4 mg/dL Normal 0.3-1.0 [facility] Comment on above: Performed By: #### L IPID, CMP #### [facility] [address] [place] [address] [place] Calcium [Mass/Vol] 9.4 mg/dL Normal 8.6-10.3 [facility] Comment on above: Performed By: #### L IPID, CMP #### [facility] [address] [place] [address] [place] Chloride [Moles/Vol] 105 mmol/L Normal 98-107 [facility] Comment on above: Performed By: #### L IPID, CMP #### [facility] [address] [place] [address] [place] CO2 [Moles/Vol] 30.1 mmol/L Normal 21.0-31.0 [facility] Comment on above: Performed By: #### L IPID, CMP #### [facility] [address] [place] [address] [place] Creatinine [Mass/Vol] 0.63 mg/dL Normal 0.60-1.20 [facility] Comment on above: Performed By: #### L IPID, CMP #### [facility] [address] [place] [address] [place] GFR/1.73 sq M.predicted MDRD (S/P/Bld) [Vol rate/Area] mL/min/{1.73_m2} [facility] Comment on above: Performed By: #### L IPID, CMP #### [facility] [address] [place] [address] [place] Globulin (S) [Mass/Vol] 3.1 g/dL Normal [facility] Comment on above: Performed By: #### L IPID, CMP #### [facility] [address] [place] [address] [place] Glucose [Mass/Vol] 97 mg/dL Normal 70-100 [facility] Comment on above: Result Comment: [place] om Glucose Reference Range is dependent on time and content of last meal. Glucose of more than 200 mg/dL in a nonstressed, ambulatory subject supports the diagnosis of Diabetes Mellitus. ADA recommended reference range Performed By: #### L IPID, CMP #### [facility] [address] [place] [address] [place] Potassium [Moles/Vol] 4.3 mmol/L Normal 3.5-5.1 [facility] Comment on above: Performed By: #### L IPID, CMP #### [facility] [address] [place] [address] [place] Protein [Mass/Vol] 7.5 g/dL Normal 6.4-8.9 [facility] Comment on above: Performed By: #### L IPID, CMP #### [facility] [address] [place] [id number] [place] Sodium [Moles/Vol] 141 mmol/L Normal 136-145 [facility] Comment on above: Performed By: #### L IPID, CMP #### [facility] [address] [place] [address] [place] Urea nitrogen [Mass/Vol] 13 mg/dL Normal 7-25 [facility] Comment on above: Performed By: #### L IPID, CMP #### [facility] [address] [place] [id number] [place] Creatinine [Mass/volume] in Serum or PlasmaOrdered By: Celio Mullins on 07-03-2023 Creatinine [Mass/Vol] 0.63 mg/dL 0.60-1.20 [facility] Globulin Calc (S) [Mass/Vol] Ordered By: Celio Mullins on 07-03-2023 Globulin (S) [Mass/Vol] 3.1 g/dL [facility] Glucose [Mass/volume] in Ser um or PlasmaOrdered By: Celio Mullins on 07-03-2023 Glucose [Mass/Vol] 97 mg/dL 70-100 [facility] Comment on above: ADA recommended refe rence rangeRandom Glucose Reference Range is dependent on time and content of last meal. Glucose of more than 200 mg/dL in a nonstressed, ambulatory subject supports the diagnosis of Diabetes Mellitus. Lipid Panelon 07-03-2023 Cholesterol [Mass/Vol] 126 mg/dL Low 140-200 [facility] Comment on above: Result Comment: Chol less than 200 mg/dl low risk Chol 201-239 mg/dl borderline risk Chol 240 mg/dl and greater high risk Performed By: #### L IPID, CMP #### [facility] [address] Cholesterol in HDL [Mass/Vol] 39 mg/dL Normal 23-92 [facility] Comment on above: Result Comment: HDL CHOL ATP-III CLASSIFICATION Cardiovascular Risk HDL > or equal to 60 mg/dL LOW HDL < 40 mg/dL HIGH Performed By: #### L IPID, CMP #### [facility] [address] Cholesterol.total/Mali sterol in HDL [Mass ratio] 3.2 {ratio} Normal <5.0 [facility] Comment on above: Result Comment: PERF ORMED BY: [place] [address] PATHOLOGIST [employer] DIRECTOR NESHA MAIER M.D. Performed By: #### L IPID, CMP #### [facility] [address] LDL Cholesterol,Calculated 69 mg/dL Normal 0-100 [facility] Comment on above: Result Comment: LDL ATP III CLASSIFICATION LDL less than 100 mg/dL Optimal LDL 100-129 mg/dL Near or above optimal LDL 130-159 mg/dL Borderline high LDL 160-189 mg/dL High LDL greater than 189 mg/dL Very high Performed By: #### L IPID, CMP #### [facility] [address] [place] [address] [place] Triglyceride w/Reflex 92 mg/dL Normal 0-149 [facility] Comment on above: Result Comment: TRIG ATP III CLASSIFICATION TRIG less than 150 mg/dL Normal TRIG 150-199 mg/dL Borderline high TRIG 200-500 mg/dL High TRIG greater than 500 mg/dL Very high Standard traceable to the Center for Disease Conrtrol and Prevention (CDC) test method. Performed By: #### L IPID, CMP #### [facility] [address] VLDL CHOLESTEROL 18 mg/dL Normal [facility] Comment on above: Performed By: #### L IPID, CMP #### [facility] [address] No Panel InformationOrdered By: Celio Mullins on 07-03-2023 Estimated GFR (CKD-EPI) > 60.0 mL/Min [facility] Creatinine Clearance (Chem N/A [facility] Potassium [Moles/volume] in Serum or PlasmaOrdered By: Celio Mullins on 07-03-2023 Potassium [Moles/Vol] 4.3 mmol/L 3.5-5.1 [facility] Protein [Mass/volume] in Ser um or PlasmaOrdered By: Celio Mullins on 07-03-2023 Protein [Mass/Vol] 7.5 g/dL 6.4-8.9 [facility] Serum or plasma albumin/glob ulin mass ratioOrdered By: Celio Mullins on 07-03-2023 Albumin/Globulin [Mass ratio] 1.4 {ratio} [facility] Serum or plasma anion gap de terminationOrdered By: Celio Mullins on 07-03-2023 Anion gap [Moles/Vol] 10.2 mmol/L 6.0-15.0 [facility] Serum or plasma high density lipoprotein (HDL) cholesterol measurementOrdered By: Celio Mullins on 07-03-2023 Cholesterol in HDL [Mass/Vol] 39 mg/dL 23-92 [facility] Comment on above: HDL CHOL ATP-III CLA SSIFICATION Cardiovascular RiskHDL > or equal to 60 mg/dL LOWHDL < 40 mg/dL HIGH Serum or plasma total choles terol/high density lipoprotein (HDL) cholesterol mass ratOrdered By: Celio Mullins on 07-03-2023 Cholesterol.total/Mali sterol in HDL [Mass ratio] 3.2 {ratio} <5.0 [facility] Sodium [Moles/volume] in Ser um or PlasmaOrdered By: Celio Mullins on 07-03-2023 Sodium [Moles/Vol] 141 mmol/L 136-145 [facility] Triglyceride [Mass/volume] i n Serum or PlasmaOrdered By: Celio Mullins on 07-03-2023 Triglyceride [Mass/Vol] 92 mg/dL 0-[address] [facility] Comment on above: TRIG ATP III CLASSIF ICATIONTRIG less than 150 mg/dL NormalTRIG 150-199 mg/dL Borderline highTRIG 200-500 mg/dL High TRIG greater than 500 mg/dL Very highStandard traceable to the Center for Disease Conrtrol and Prevention (CDC) test method. Urea nitrogen [Mass/volume] in Serum or PlasmaOrdered By: Celio Mullins on 07-03-2023 Urea nitrogen [Mass/Vol] 13 mg/dL 7-25 [facility] A1C with Estimated Average G luon 07-01-2023 Glucose [Mass/Vol] 117 mg/dL Normal [facility] Comment on above: Order Comment: Reaso n for Exam Severe obesity (BMI >= 40);PCOS (polycystic ovarian syndrome Result Comment: PERF ORMED BY: [place] [address] PATHOLOGIST [employer] DIRECTOR NESHA MAIER M.D. Performed By: #### A POB, LIPA #### [facility] , #### CMP, A1C WTH eA #### [facility] [address] [place] [address] HbA1c (Bld) [Mass fraction] 5.7 % High 4.3-5.6 [facility] Comment on above: Order Comment: Reaso n for Exam Severe obesity (BMI >= 40);PCOS (polycystic ovarian syndrome Result Comment: Incr eased risk for diabetes: 5.7 - 6.4 diabetes: >6.4 glycemic control for adults with diabetes: <7.0 Performed By: #### A POB, LIPA #### [facility] , #### CMP, A1C WTH eA #### [facility] [address] [place] [address] [place] Alanine aminotransferase [En zymatic activity/volume] in Serum or PlasmaOrdered By: Celio Mullins on 07-01-2023 ALT [Catalytic activity/Vol] 21 U/L 7-52 [facility] Albumin [Mass/volume] in Ser um or Plasma by Bromocresol green (BCG) dye binding methoOrdered By: Celio Mullins on 07-01-2023 Albumin BCG dye [Mass/Vol] 4.6 g/dL 3.5-5.7 [facility] Alkaline phosphatase [Enzyma tic activity/volume] in Serum or PlasmaOrdered By: Celio Mullins on 07-01-2023 ALP [Catalytic activity/Vol] 72 U/L 34-104 [facility] Apolipoprotein Bon 3 Apolipoprotein B [Mass/Vol] 83 mg/dL Normal <90 [facility] Comment on above: Order Comment: Reaso n for Exam Severe obesity (BMI >= 40);PCOS (polycystic ovarian syndrome Result Comment: Hedy rabzach < 90 Borderline High 90 - 99 High 100 - 130 Very High >130 ASCVD RISK THERAPEUTIC TARGET CATEGORY APO B (mg/dL) Very High Risk <80 (if extreme risk <70) High Risk <90 Moderate Risk <90 Performed at: [facility] [address] [id number] Intensive Care Nurse: Jeanna Case MD, Phone: [phone] PERFORMED BY: [place] [address] PATHOLOGIST [employer] DIRECTOR NESHA MAIER M.D. Performed By: #### A POB, LIPA #### [facility] , #### CMP, A1C WTH eA #### [address] Aspartate aminotransferase [ Enzymatic activity/volume] in Serum or PlasmaOrdered By: Celio Mullins on 07-01-2023 AST [Catalytic activity/Vol] 19 U/L 13-39 [facility] Bilirubin.total [Mass/volume ] in Serum or PlasmaOrdered By: Celio Mullins on 11-14-2023 Bilirubin [Mass/Vol] 0.4 mg/dL 0.3-1.0 [facility] Calcium [Mass/volume] in Ser um or PlasmaOrdered By: Celio Mullins on 07-01-2023 Calcium [Mass/Vol] 9.8 mg/dL 8.6-10.3 [facility] Carbon dioxide, total [Moles /volume] in Serum or PlasmaOrdered By: Celio Mullins on 07-01-2023 CO2 [Moles/Vol] 25.3 mmol/L 21.0-31.0 [facility] Chloride [Moles/volume] in S marta or PlasmaOrdered By: Celio Mullins on 07-01-2023 Chloride [Moles/Vol] 105 mmol/L 98-107 [facility] Comprehensive Metabolic Pane landon 07-01-2023 Albumin [Mass/Vol] 4.6 g/dL Normal 3.5-5.7 [facility] Comment on above: Order Comment: Reaso n for Exam Severe obesity (BMI >= 40);PCOS (polycystic ovarian syndrome NON FASTING Performed By: #### A POB, LIPA #### [facility] , #### CMP, A1C WT eA #### [facility] [address] [place] [id number] [place] Albumin/Globulin [Mass ratio] 1.4 {ratio} Normal [facility] Comment on above: Order Comment: Reaso n for Exam Severe obesity (BMI >= 40);PCOS (polycystic ovarian syndrome NON FASTING Performed By: #### A POB, LIPA #### [facility] , #### CMP, A1C WTH eA #### [facility] [address] [place] [address] [place] ALP [Catalytic activity/Vol] 72 U/L Normal 34-104 [facility] Comment on above: Order Comment: Reaso n for Exam Severe obesity (BMI >= 40);PCOS (polycystic ovarian syndrome NON FASTING Result Comment: PERF ORMED BY: [facility] [address] [place] [address] PATHOLOGIST [employer] DIRECTOR NESHA MAIER M.D. Performed By: #### A POB, LIPA #### [facility] , #### CMP, A1C WTH eA #### [facility] [address] [place] [address] [place] ALT [Catalytic activity/Vol] 21 U/L Normal 7-52 [facility] Comment on above: Order Comment: Reaso n for Exam Severe obesity (BMI >= 40);PCOS (polycystic ovarian syndrome NON FASTING Performed By: #### A POB, LIPA #### [facility] , #### CMP, A1C WTH eA #### [address] Anion gap [Moles/Vol] 11.5 mmol/L Normal 6.0-15.0 [facility] Comment on above: Order Comment: Reaso n for Exam Severe obesity (BMI >= 40);PCOS (polycystic ovarian syndrome NON FASTING Performed By: #### A POB, LIPA #### [facility] , #### CMP, A1C WTH eA #### [place] [address] [place] AST [Catalytic activity/Vol] 19 U/L Normal 13-39 [facility] Comment on above: Order Comment: Reaso n for Exam Severe obesity (BMI >= 40);PCOS (polycystic ovarian syndrome NON FASTING Performed By: #### A POB, LIPA #### [facility] , #### CMP, A1C WTH eA #### [address] Bilirubin [Mass/Vol] 0.4 mg/dL Normal 0.3-1.0 [facility] Comment on above: Order Comment: Reaso n for Exam Severe obesity (BMI >= 40);PCOS (polycystic ovarian syndrome NON FASTING Performed By: #### A POB, LIPA #### [facility] , #### CMP, A1C WTH eA #### [place] [address] [place] Calcium [Mass/Vol] 9.8 mg/dL Normal 8.6-10.3 [facility] Comment on above: Order Comment: Reaso n for Exam Severe obesity (BMI >= 40);PCOS (polycystic ovarian syndrome NON FASTING Performed By: #### A POB, LIPA #### [facility] , #### CMP, A1C WTH eA #### [facility] [address] [place] [address] [place] Chloride [Moles/Vol] 105 mmol/L Normal 98-107 [facility] Comment on above: Order Comment: Reaso n for Exam Severe obesity (BMI >= 40);PCOS (polycystic ovarian syndrome NON FASTING Performed By: #### A POB, LIPA #### [facility] , #### CMP, A1C WTH eA #### [facility] [address] CO2 [Moles/Vol] 25.3 mmol/L Normal 21.0-31.0 [facility] Comment on above: Order Comment: Reaso n for Exam Severe obesity (BMI >= 40);PCOS (polycystic ovarian syndrome NON FASTING Performed By: #### A POB, LIPA #### [facility] , #### CMP, A1C WTH eA #### [facility] [address] [place], [place] [id number] [place] Creatinine [Mass/Vol] 0.64 mg/dL Normal 0.60-1.20 [facility] Comment on above: Order Comment: Reaso n for Exam Severe obesity (BMI >= 40);PCOS (polycystic ovarian syndrome NON FASTING Performed By: #### A POB, LIPA #### [facility] , #### CMP, A1C WTH eA #### [facility] [address] [place] [id number] [place] GFR/1.73 sq M.predicted MDRD (S/P/Bld) [Vol rate/Area] mL/min/{1.73_m2} Normal [facility] Comment on above: Order Comment: Reaso n for Exam Severe obesity (BMI >= 40);PCOS (polycystic ovarian syndrome NON FASTING Performed By: #### A POB, LIPA #### [facility] , #### CMP, A1C WTH eA #### [facility] [address] Globulin (S) [Mass/Vol] 3.2 g/dL Normal [facility] Comment on above: Order Comment: Reaso n for Exam Severe obesity (BMI >= 40);PCOS (polycystic ovarian syndrome NON FASTING Performed By: #### A POB, LIPA #### [facility] , #### CMP, A1C WTH eA #### [facility] [address] Glucose [Mass/Vol] 95 mg/dL Normal 70-100 [facility] Comment on above: Order Comment: Reaso n for Exam Severe obesity (BMI >= 40);PCOS (polycystic ovarian syndrome NON FASTING Result Comment: [facility] Glucose Reference Range is dependent on time and content of last meal. Glucose of more than 200 mg/dL in a nonstressed, ambulatory subject supports the diagnosis of Diabetes Mellitus. ADA recommended reference range Performed By: #### A POB, LIPA #### [facility] , #### CMP, A1C WTH eA #### [facility] [address] Potassium [Moles/Vol] 3.8 mmol/L Normal 3.5-5.1 [facility] Comment on above: Order Comment: Reaso n for Exam Severe obesity (BMI >= 40);PCOS (polycystic ovarian syndrome NON FASTING Performed By: #### A POB, LIPA #### [facility] , #### CMP, A1C WTH eA #### [facility] [address] [place] [id number] [place] Protein [Mass/Vol] 7.8 g/dL Normal 6.4-8.9 [facility] Comment on above: Order Comment: Reaso n for Exam Severe obesity (BMI >= 40);PCOS (polycystic ovarian syndrome NON FASTING Performed By: #### A POB, LIPA #### [facility] , #### CMP, A1C WTH eA #### [facility] [address] [place] [address] [place] Sodium [Moles/Vol] 138 mmol/L Normal 136-145 [facility] Comment on above: Order Comment: Reaso n for Exam Severe obesity (BMI >= 40);PCOS (polycystic ovarian syndrome NON FASTING Performed By: #### A POB, LIPA #### [facility] , #### CMP, A1C WTH eA #### [facility] [address] [place] [id number] [place] Urea nitrogen [Mass/Vol] 16 mg/dL Normal 7-25 [facility] Comment on above: Order Comment: Reaso n for Exam Severe obesity (BMI >= 40);PCOS (polycystic ovarian syndrome NON FASTING Performed By: #### A POB, LIPA #### [facility] , #### CMP, A1C WTH eA #### [facility] [address] [place] [address] [place] Creatinine [Mass/volume] in Serum or PlasmaOrdered By: Celio Mullins on 07-01-2023 Creatinine [Mass/Vol] 0.64 mg/dL 0.60-1.20 [facility] Globulin Calc (S) [Mass/Vol] Ordered By: Celio Mullins on 07-01-2023 Globulin (S) [Mass/Vol] 3.2 g/dL [facility] Glucose [Mass/volume] in Ser um or PlasmaOrdered By: Celio Mullins on 07-01-2023 Glucose [Mass/Vol] 95 mg/dL 70-100 [facility] Comment on above: ADA recommended refe [...] from glycated hemoglobin (Bld) [Mass/Vol] 117 mg/dL [facility] Hemoglobin A1c percentageOrd ered By: Celio Mullins on 07-01-2023 HbA1c (Bld) [Mass fraction] 5.7 % 4.3-5.6 [facility] Comment on above: Increased risk for d iabetes: 5.7 - 6.4diabetes: >6.4glycemic control for adults with diabetes: <7.0 Lipoprotein (a)on 07-01-2023 Lipoprotein a [Mass/Vol] 13.0 mg/dL Normal <75.0 [facility] Comment on above: Order Comment: Reaso n for Exam Severe obesity (BMI >= 40);PCOS (polycystic ovarian syndrome Result Comment: Note : Values greater than or equal to 75.0 nmol/L may indicate an independent risk factor for CHD, but must be evaluated with caution when applied to non- populations due to the influence of genetic factors on Lp(a) across ethnicities. Performed at: [facility] [place] [id number] Intensive Care Nurse: Cassius Zhong PhD, Phone: [phone] Performed By: #### A POB, LIPA #### [facility] , #### CMP, A1C WTH eA #### [address] No Panel InformationOrdered By: Celio Mullins on 07-01-2023 Estimated GFR (CKD-EPI) > 60.0 mL/Min [facility] Creatinine Clearance (Chem N/A [facility] Potassium [Moles/volume] in Serum or PlasmaOrdered By: Celio Mullins on 07-01-2023 Potassium [Moles/Vol] 3.8 mmol/L 3.5-5.1 [facility] Protein [Mass/volume] in Ser um or PlasmaOrdered By: Celio Mullins on 07-01-2023 Protein [Mass/Vol] 7.8 g/dL 6.4-8.9 [facility] Serum or plasma albumin/glob ulin mass ratioOrdered By: Celio Mullins on 07-01-2023 Albumin/Globulin [Mass ratio] 1.4 {ratio} [facility] Serum or plasma anion gap de terminationOrdered By: Celio Mullins on 07-01-2023 Anion gap [Moles/Vol] 11.5 mmol/L 6.0-15.0 [facility] Serum or plasma lipoprotein a measurement (moles/volume)Ordered By: Celio Mullins on 07-01-2023 Lipoprotein a [Moles/Vol] 13.0 nmol/L <75.0 [facility] Comment on above: Note: Values greater than or equal to 75.0 nmol/L may indicate an independent risk factor for CHD, but must be evaluated with caution when applied to non- populations due to the influence of genetic factors on Lp(a) across ethnicities.Performed at: [facility] [place] [id number] Director: Casisus Zhong PhD, Phone: [phone] Sodium [Moles/volume] in Ser um or PlasmaOrdered By: Celio Mullins on 07-01-2023 Sodium [Moles/Vol] 138 mmol/L 136-145 [facility] Urea nitrogen [Mass/volume] in Serum or PlasmaOrdered By: Celio Mullins on 07-01-2023 Urea nitrogen [Mass/Vol] 16 mg/dL 7-25 [facility] COVID Quick Testingon 2022 Result Negative [employer] Other SARS-CoV-2 (COVID-19) RNA NA A+probe Ql (Resp)on 02-11-2023 SARS-CoV-2 (COVID-19) RNA SURI+probe Ql (Unsp spec) Negative [employer] Other DHEA-SULFATEon 01-01-2023 DHEA-Sulfate 95.3 ug/dL Normal 84.8-378.0 [facility] Comment on above: Performed By: #### D RIMA #### [facility] [address] [place] [address] Dr. Kaushik Palomares FSHon 01-01-2023 FSH 4.6 mIU/mL Normal [facility] Comment on above: Result Comment: Adul t Female: Follicular phase 3.5 - 12.5 Ovulation phase 4.7 - 21.5 Luteal phase 1.7 - 7.7 Postmenopausal 25.8 - 134.8 Performed By: #### C BC #### [facility] [address] [place] [address] Dr. Kaushik Palomares LUTEINIZING HORMONE (LH)on 01-01-2023 LH 3.5 mIU/mL Normal [facility] Comment on above: Result Comment: Adul t Female: Follicular phase 2.4 - 12.6 Ovulation phase 14.0 - 95.6 Luteal phase 1.0 - 11.4 Postmenopausal 7.7 - 58.5 Performed By: #### L BCL #### [facility] [address] [place] [address] Dr. Kaushik Palomares CBC AUTO DIFFon 12-31-2022 BASO # 0.1 103/ul Normal 0.0-0.1 [facility] Comment on above: Performed By: #### C BC #### [facility] [address] [place] [address] Dr. Kaushik Palomares Basophils/100 WBC (Bld) 0.8 % Normal 0.2-2.0 [facility] Comment on above: Performed By: #### C BC #### [facility] [address] [place] [address] Dr. Kaushik Palomares EO # 0.1 103/ul Normal 0.0-0.7 [facility] Comment on above: Performed By: #### C BC #### [facility] [address] [place] [address] Dr. Kaushik Palomares Eosinophils/100 WBC (Bld) 1.7 % Normal 0.9-7.0 [facility] Comment on above: Performed By: #### C BC #### [facility] [address] [place] [address] Dr. Kaushik Palomares Erythrocyte distribution width (RBC) [Ratio] 12.8 % Normal 11.0-15.0 [facility] Comment on above: Performed By: #### C BC #### [facility] [address] [place] [address] Dr. Kaushik Palomares Hematocrit (Bld) [Volume fraction] 33.0 % Critically low 36.0-48.0 [facility] Comment on above: Performed By: #### C BC #### [facility] [address] [place] [address] Dr. Kaushik Palomares Hemoglobin (Bld) [Mass/Vol] 11.0 g/dL Critically low 12.0-16.0 [facility] Comment on above: Performed By: #### C BC #### [facility] [address] [place] [address] Dr. Kaushik Palomares IG # 0.03 10e3/ul Normal 0.00-0.03 [facility] Comment on above: Performed By: #### C BC #### [facility] [address] [place] [address] Dr. Kaushik Palomares IG % 0.5 % Normal 0.0-0.5 [facility] Comment on above: Performed By: #### C BC #### [facility] [address] [place] [address] Dr. Kaushik Palomares LYMPH # 2.4 103/ul Normal 1.2-3.8 [facility] Comment on above: Performed By: #### C BC #### [facility] [address] [place] [address] Dr. Kaushik Palomares Lymphocytes/100 WBC (Bld) 36.6 % Normal 20.5-60.0 [facility] Comment on above: Performed By: #### C BC #### [facility] [address] [place] [address] Dr. Kaushik Palomares MANUAL DIFF REQ NO Normal [facility] Comment on above: Performed By: #### C BC #### [facility] [address] [place] [address] Dr. Kaushik Palomares MCH (RBC) [Entitic mass] 29.0 pg Normal 26.7-34.0 [facility] Comment on above: Performed By: #### C BC #### [facility] [address] [place] [address] Dr. Kaushik Palomares MCHC (RBC) [Mass/Vol] 33.3 g/dL Normal 29.9-35.2 [facility] Comment on above: Performed By: #### C BC #### [facility] [address] [place] [address] [address] Kaushik Palomares MCV (RBC) [Entitic vol] 87.1 fL Normal 81.0-99.0 [facility] Comment on above: Performed By: #### C BC #### [facility] [address] [place] [address] [address] Kaushik Palomares MONO # 0.2 103/ul Critically low 0.3-0.8 [facility] Comment on above: Performed By: #### C BC #### [facility] [address] [place] [address] [address] Kaushik Palomares Monocytes/100 WBC (Bld) 3.6 % Normal 1.7-12.0 [facility] Comment on above: Performed By: #### C BC #### [facility] [address] [place] [address] Dr. Kaushik Palomares NEUT # 3.7 103/ul Normal 1.4-6.5 [facility] Comment on above: Performed By: #### C BC #### [facility] [address] [place] [address] Dr. Kaushik Palomares Neutrophils/100 WBC (Bld) 56.8 % Normal 43.0-75.0 [facility] Comment on above: Performed By: #### C BC #### [facility] [address] [place] [address] Dr. Kaushik Palomares Platelet mean volume (Bld) [Entitic vol] 9.8 fL Normal 9.5-13.5 [facility] Comment on above: Performed By: #### C BC #### [facility] [address] [place] [address] Dr. Kaushik Palomares PLT 234 103/ul Normal 150-450 [facility] Comment on above: Performed By: #### C BC #### [facility] [address] [place] [address] Dr. Kaushik Palomares RBC 3.79 106/ul Critically low 4.20-5.40 [facility] Comment on above: Performed By: #### C BC #### [facility] [address] [place] [address] [address] Kaushik Palomares WBC 6.5 103/ul Normal 4.0-11.0 [facility] Comment on above: Performed By: #### C BC #### [facility] [address] [place] [address] Dr. Kaushik Palomares FREE T4on 12-31-2022 Free T4 [Mass/Vol] 0.79 ng/dL Normal 0.76-1.46 [facility] Comment on above: Performed By: #### F T4 #### [facility] [address] [place] [address] [address] Kaushik Palomares GLYCOHEMOGLOBIN A1Con 2022 ADA RECOMMENDATION SEE BELOW Normal [facility] Comment on above: Result Comment: ADA RECOMMENDED LIMIT 4.0 - 6.0 ADA THERAPEUTIC TARGET < 7.0 ACTION SUGGESTED > 7.0 Performed By: #### A 1C #### [facility] [address] [place] [address] Dr. Kaushik Palomares Glucose [Mass/Vol] 111 mg/dL Normal [facility] Comment on above: Performed By: #### A 1C #### [facility] [address] [place] [address] [address] Kaushik Palomares HbA1c (Bld) [Mass fraction] 5.5 % Normal 4.5-6.2 [facility] Comment on above: Performed By: #### A 1C #### [facility] [address] [place] [address] Dr. Kaushik Palomares TSHon 12-31-2022 TSH 1.114 uIU/mL Normal 0.358-3.740 [facility] Comment on above: Performed By: #### C BC #### [facility] [address] [place] [address] Dr. Kaushik Palomares US PELVIS AND TRANSVAGon [...] by: SUGEY MACDONALD Date: 2022-11-26 15:58 Normal [facility] XR SACRUM_COCCYXon 3 XR SACRUM_COCCYX [...] by: SUGEY MACDONALD Date: 2022-11-08 10:01 Normal [facility] PAP ACOG PANEL 2: 30 to 65on 11-05-2022 . . Normal [facility] Comment on above: Result Comment: Perf ormed at: WB Performed By: #### C BC #### [facility] [address] [place] [address] [address] Kaushik Palomares Age Gdln ACOG Testing 30-65 Normal [facility] Comment on above: Performed By: #### C BC #### [facility] [address] [place], [place] [address] Dr. Kaushik Palomares DIAGNOSIS: Comment Normal [facility] Comment on above: Result Comment: NEGA TIVE FOR INTRAEPITHELIAL LESION OR MALIGNANCY. Performed at: WB Performed By: #### C BC #### [facility] [address] [place] [address] [address] Kaushik Palomares HPV Aptima Negative Normal Negative [facility] Comment on above: Result Comment: This nucleic acid amplification test detects fourteen high-risk HPV types (16,18,31,33,35,39,45,51,52,56,58,59,66,68) without differentiation. Performed at: =G Performed By: #### C BC #### [facility] [address] [place] [address] [address] Kaushik Palomares HPV Genotype Reflex Comment Normal [facility] Comment on above: Result Comment: Crit eria not met, HPV Genotype not performed. Performed at: WB Performed By: #### C BC #### [facility] [address] [place] [address] Dr. Kaushik Palomares Methodology: Comment Normal [facility] Comment on above: Result Comment: This liquid based ThinPrep(R) pap test was screened with the use of an image guided system. Performed at: WB Performed By: #### C BC #### [facility] [address] [place] [address] Dr. Kaushik Palomares Note: Comment Normal [facility] Comment on above: Result Comment: The Pap smear is a screening test designed to aid in the detection of premalignant and malignant conditions of the uterine cervix. It is not a diagnostic procedure and should not be used as the sole means of detecting cervical cancer. Both false-positive and false-negative reports do occur. . Performed at: WB Performed By: #### C BC #### [facility] [address] [place] [address] [address] Kaushik Palomares Performed by: Comment Normal [facility] Comment on above: Result Comment: Robi Graham, Faculty Physician (ASCP) Performed at: WB Performed By: #### C BC #### [facility] [address] [place], [place] [id number] Dr. Kaushik Palomares Specimen adequacy: Comment Normal [facility] Comment on above: Result Comment: Sati sfactory for evaluation. Endocervical and/or squamous metaplastic cells (endocervical component) are present. Performed at: WB Performed By: #### C BC #### [facility] [address] [place] [address] Dr. Kaushik Palomares COVID/FLU RT-PCRon 2 SARS-CoV-2 (COVID-19) RNA SURI+probe Ql (Unsp spec) Negative [employer] Other COVID/FLU RT-PCR Negative [facility] [employer] Other HCG-BETA SUBUNIT QUANTon hCG,Beta Subunit,Qnt,Serum <1 Normal [facility] Comment on above: Result Comment: Fema le (Non-) 0 - 5 (Postmenopausal) 0 - 8 . Female () Weeks of Gestation 3 6 - 71 4 10 - 750 5 866 - 3265 6 727 - 04162 7 [phone] 8 [phone] -[phone] 9 26068 -[phone] 10 16374 -[phone] 12 96388 -[phone] 14 75301 - 35971 15 73867 - 90949 16 5955 - 95661 17 8156 - 64199 18 4599 - 53753 Rg ECLIA methodology Performed By: #### H CGSUB #### [facility] [address] [place] [address] Dr. Kaushik Palomares T4 LABCORPon 01-22-2022 T4 [Mass/Vol] 7.8 ug/dL Normal 4.5-12.0 [facility] Comment on above: Performed By: #### T 4LC #### [facility] [address] [place] [address] Dr. Kaushik Palomares CBC AUTO DIFFon 01-21-2022 BASO # 0.1 103/ul Normal 0.0-0.1 [facility] Comment on above: Performed By: #### C BC #### [facility] [address] [place] [address] Dr. Kaushik Palomares Basophils/100 WBC (Bld) 0.6 % Normal 0.2-2.0 [facility] Comment on above: Performed By: #### C BC #### [facility] [address] [place] [address] Dr. Kaushik Palomares EO # 0.1 103/ul Normal 0.0-0.7 [facility] Comment on above: Performed By: #### C BC #### [facility] [address] [place] [address] Dr. Kaushik Palomares Eosinophils/100 WBC (Bld) 1.2 % Normal 0.9-7.0 [facility] Comment on above: Performed By: #### C BC #### [facility] [address] [place] [address] Dr. Kaushik Palomares Erythrocyte distribution width (RBC) [Ratio] 13.3 % Normal 11.0-15.0 [facility] Comment on above: Performed By: #### C BC #### [facility] [address] [place] [address] Dr. Kaushik Palomares Hematocrit (Bld) [Volume fraction] 40.0 % Normal 36.0-48.0 [facility] Comment on above: Performed By: #### C BC #### [facility] [address] [place] [address] Dr. Kaushik Palomares Hemoglobin (Bld) [Mass/Vol] 12.7 g/dL Normal 12.0-16.0 [facility] Comment on above: Performed By: #### C BC #### [facility] [address] [place] [address] Dr. Kaushik Palomares IG # 0.02 10e3/ul Normal 0.00-0.03 [facility] Comment on above: Performed By: #### C BC #### [facility] [address] [place] [address] Dr. Kaushik Palomares IG % 0.2 % Normal 0.0-0.5 [facility] Comment on above: Performed By: #### C BC #### [facility] [address] [place] [address] Dr. Kaushik Palomares LYMPH # 3.0 103/ul Normal 1.2-3.8 [facility] Comment on above: Performed By: #### C BC #### [facility] [address] [place] [address] Dr. Kaushik Palomares Lymphocytes/100 WBC (Bld) 32.9 % Normal 20.5-60.0 [facility] Comment on above: Performed By: #### C BC #### [facility] [address] [place] [address] Dr. Kaushik Palomares MANUAL DIFF REQ NO Normal [facility] Comment on above: Performed By: #### C BC #### [facility] [address] [place] [address] Dr. Kaushik Palomares MCH (RBC) [Entitic mass] 28.5 pg Normal 26.7-34.0 [facility] Comment on above: Performed By: #### C BC #### [facility] [address] [place] [address] Dr. Kaushik Palomares MCHC (RBC) [Mass/Vol] 31.8 g/dL Normal 29.9-35.2 [facility] Comment on above: Performed By: #### C BC #### [facility] [address] [place] [address] Dr. Kaushik Palomares MCV (RBC) [Entitic vol] 89.7 fL Normal 81.0-99.0 [facility] Comment on above: Performed By: #### C BC #### [facility] [address] [place] [address] Dr. Kaushik Palomares MONO # 0.5 103/ul Normal 0.3-0.8 [facility] Comment on above: Performed By: #### C BC #### [facility] [address] [place] [address] Dr. Kaushik Palomares Monocytes/100 WBC (Bld) 5.1 % Normal 1.7-12.0 [facility] Comment on above: Performed By: #### C BC #### [facility] [address] [place] [address] Dr. Kaushik Palomares NEUT # 5.4 103/ul Normal 1.4-6.5 [facility] Comment on above: Performed By: #### C BC #### [facility] [address] [address] [address] Kaushik Palomares Neutrophils/100 WBC (Bld) 60.0 % Normal 43.0-75.0 [facility] Comment on above: Performed By: #### C BC #### [facility] [address] [address] [address] Kaushik Palomares Platelet mean volume (Bld) [Entitic vol] 9.3 fL Critically low 9.5-13.5 [facility] Comment on above: Performed By: #### C BC #### [facility] [address] [place] [address] Dr. Kaushik Palomares PLT 221 103/ul Normal 150-450 [facility] Comment on above: Performed By: #### C BC #### [facility] [address] [place] [address] Dr. Kaushik Palomares RBC 4.46 106/ul Normal 4.20-5.40 [facility] Comment on above: Performed By: #### C BC #### [facility] [address] [place] [address] Dr. Kaushik Palomares WBC 9.0 103/ul Normal 4.0-11.0 [facility] Comment on above: Performed By: #### C BC #### [facility] [address] [place] [address] Dr. Kaushik Palomares GLYCOHEMOGLOBIN A1Con 2021 ADA RECOMMENDATION SEE BELOW Normal [facility] Comment on above: Result Comment: ADA RECOMMENDED LIMIT 4.0 - 6.0 ADA THERAPEUTIC TARGET < 7.0 ACTION SUGGESTED > 7.0 Performed By: #### C BC #### [facility] [address] [place] [address] Dr. Kaushik Palomares Glucose [Mass/Vol] 94 mg/dL Normal [facility] Comment on above: Performed By: #### C BC #### [facility] [address] [place] [address] Dr. Kaushik Palomares HbA1c (Bld) [Mass fraction] 4.9 % Normal 4.5-6.2 [facility] Comment on above: Performed By: #### C BC #### [facility] [address] [address] [address] Kaushik Palomares LIPID PROFILEon 01-21-2022 CHOL-HDL RATIO NORM SEE BELOW Normal [facility] Comment on above: Result Comment: 3.3 - 4.4 LOW RISK 4.4 - 7.1 AVERAGE RISK 7.1 - 11.0 MODERATE RISK >11.0 HIGH RISK Performed By: #### L IPID, CMP, TSH #### [facility] [address] [address] [address] Kaushik Palomares Cholesterol [Mass/Vol] 168 mg/dL Normal <=200 [facility] Comment on above: Performed By: #### L IPID, CMP, TSH #### [facility] [address] [address] [address] Kaushik Palomares Cholesterol in HDL [Mass/Vol] 41 mg/dL Normal 40-60 [facility] Comment on above: Performed By: #### L IPID, CMP, TSH #### [facility] [address] [address] [address] Kaushik Palomares Cholesterol in LDL [Mass/Vol] 90.2 mg/dL Normal [facility] Comment on above: Performed By: #### L IPID, CMP, TSH #### [facility] [address] [address] [address] Kaushik Palomares Cholesterol.total/Mali sterol in HDL [Mass ratio] 4.1 {ratio} Normal [facility] Comment on above: Performed By: #### L IPID, CMP, TSH #### [facility] [address] [address] [address] Kaushik Palomares HDL NORMAL > or = 60 mg/dl - LO W CARDIOVASCULAR RISK <40 mg/dl - HIGH CARDIOVASCULAR RISK Normal [facility] Comment on above: Performed By: #### L IPID, CMP, TSH #### [facility] [address] [address] [address] Kaushik Palomares LDL CALC NORMAL SEE BELOW Normal [facility] Comment on above: Result Comment: <100 mg/dl OPTIMAL 100 - 129 mg/dl NEAR OR ABOVE OPTIMAL 130 - 159 mg/dl BORDERLINE HIGH 160 - 189 mg/dl HIGH >190 mg/dl VERY HIGH Performed By: #### L IPID, CMP, TSH #### [facility] [address] [place] [address] Dr. Kaushik Palomares Triglyceride [Mass/Vol] 184 mg/dL Critically high <=150 [facility] Comment on above: Performed By: #### L IPID, CMP, TSH #### [facility] [address] [place] [address] Dr. Kaushik Palomares VLDL CALC 36.8 mg/dL Normal [facility] Comment on above: Performed By: #### L IPID, CMP, TSH #### [facility] [address] [place] [address] Dr. Kaushik Palomares MICROALBUMIN, RAND URon 06- mALB 2.0 mg/L Normal <=30.0 [facility] Comment on above: Performed By: #### C BC #### [facility] [address] [place] [address] Dr. Kaushik Palomares PROF 14(COMP METB)on 022 Albumin [Mass/Vol] 3.7 g/dL Normal 3.4-5.0 [facility] Comment on above: Performed By: #### L IPID, CMP, TSH #### [facility] [address] [place] [address] Dr. Kaushik Palomares Albumin/Globulin [Mass ratio] 0.9 {ratio} Normal [facility] Comment on above: Performed By: #### L IPID, CMP, TSH #### [facility] [address] [place] [address] Dr. Kaushik Palomares ALP [Catalytic activity/Vol] 53 U/L Normal 46-116 [facility] Comment on above: Performed By: #### L IPID, CMP, TSH #### [facility] [address] [place] [address] Dr. Kaushik Palomares ALT [Catalytic activity/Vol] 44 U/L Normal 14-59 [facility] Comment on above: Performed By: #### L IPID, CMP, TSH #### [facility] [address] [address] [address] Kaushik Palomares Anion gap [Moles/Vol] 6.8 mmol/L Normal [facility] Comment on above: Performed By: #### L IPID, CMP, TSH #### [facility] [address] [address] [address] Kaushik Palomares AST [Catalytic activity/Vol] 22 U/L Normal 15-37 [facility] Comment on above: Performed By: #### L IPID, CMP, TSH #### [facility] [address] [address] [address] Kaushik Palomares Bilirubin [Mass/Vol] 0.3 mg/dL Normal 0.2-1.0 [facility] Comment on above: Performed By: #### L IPID, CMP, TSH #### [facility] [address] [address] [address] Kaushik Palomares Calcium [Mass/Vol] 9.2 mg/dL Normal 8.5-10.1 [facility] Comment on above: Performed By: #### L IPID, CMP, TSH #### [facility] [address] [address] [address] Kaushik Palomares Chloride [Moles/Vol] 102 mmol/L Normal 98-107 [facility] Comment on above: Performed By: #### L IPID, CMP, TSH #### [facility] [address] [address] [address] Kaushik Palomares CO2 [Moles/Vol] 31.4 mmol/L Normal 21.0-32.0 [facility] Comment on above: Performed By: #### L IPID, CMP, TSH #### [facility] [address] [address] [address] Kaushik Palomares Creatinine [Mass/Vol] 0.71 mg/dL Normal 0.55-1.02 [facility] Comment on above: Performed By: #### L IPID, CMP, TSH #### [facility] [address] [address] [address] Kaushik Palomares EGFR-AF UGANDAN >60 Normal >=60 [facility] Comment on above: Performed By: #### L IPID, CMP, TSH #### [facility] [address] [address] [address] Kaushik Palomares EGFR-NON AF UGANDAN >60 Normal >=60 [facility] Comment on above: Performed By: #### L IPID, CMP, TSH #### [facility] [address] [place] [address] Dr. Kaushik Palomares Globulin (S) [Mass/Vol] 4.2 g/dL Normal T [facility] Comment on above: Performed By: #### L IPID, CMP, TSH #### [facility] [address] [address] [address] Kaushik Palomares Glucose [Mass/Vol] 93 mg/dL Normal 74-106 [facility] Comment on above: Performed By: #### L IPID, CMP, TSH #### [facility] [address] [place] [address] Dr. Kaushik Palomares Potassium [Moles/Vol] 4.2 mmol/L Normal 3.5-5.1 [facility] Comment on above: Performed By: #### L IPID, CMP, TSH #### [facility] [address] [place] [address] Dr. Kaushik Palomares Protein [Mass/Vol] 7.9 g/dL Normal 6.4-8.2 [facility] Comment on above: Performed By: #### L IPID, CMP, TSH #### [facility] [address] [place] [address] Dr. Kaushik Palomares Sodium [Moles/Vol] 136 mmol/L Normal 136-145 [facility] Comment on above: Performed By: #### L IPID, CMP, TSH #### [facility] [address] [place] [address] Dr. Kaushik Palomares Urea nitrogen [Mass/Vol] 11.0 mg/dL Normal 7.0-18.0 [facility] Comment on above: Performed By: #### L IPID, CMP, TSH #### [facility] [address] [place] [address] Dr. Kaushik Palomares Urea nitrogen/Creatinine [Mass ratio] 15.5 mg/mg Normal [facility] Comment on above: Performed By: #### L IPID, CMP, TSH #### [facility] [address] [address] [address] Kaushik Palomares TSHon 01-21-2022 TSH 1.298 uIU/mL Normal 0.358-3.740 [facility] Comment on above: Performed By: #### C BC #### [facility] [address] [address] [address] Kaushik Palomares TSH RANGE SEE BELOW Normal [facility] Comment on above: Result Comment: <0.3 4 UIU/ml HYPERTHYROID 0.34-5.60 UIU/ml EUTHYROID >5.60 UIU/ml HYPOTHYROID Performed By: #### C BC #### [facility] [address] [address] [address] Kaushik Palomares COVID Quick Testingon 2020 Result Negative [employer] Other Quick Strepon 06-17-2021 S. pyogenes Org specific cx Ql (Throat) Negative [employer] Other Quick Strep [employer] Other Urinalysis - AUTOMATEDon Appearance (U) cloudy [employer] Other Bilirubin Ql (U) Negative [employer] Other Color (U) yellow [employer] Other Glucose Ql (U) Negative [employer] Other Hemoglobin Ql (U) large [employer] Other Ketones Ql (U) Negative [employer] Other Leukocyte esterase Test strip Ql (U) trace [employer] Other Nitrite Ql (U) Positive [employer] Other pH (U) 5.5 [pH] [facility] [employer] Other Protein Ql (U) 100 [employer] Other Specific gravity (U) [Rel density] 1.025 [facility] [employer] Other Urobilinogen (U) [Mass/Vol] 0.2 mg/dL [facility] [employer] Other Urinalysis - AUTOMATED No [facility] [employer] Other Urine Cultureon 05-31-2021 Urine Culture >100,000 [facility] [employer] Other Urine Culture <16 [facility] [employer] Other Urine Culture >16 [facility] [employer] Other Urine Culture <4 [employer] Other Urine Culture 8 [facility] [employer] Other Urine Culture <2 [facility] [employer] Other Urine Culture <1 [employer] Other Urine Culture >2 [facility] [employer] Other Urine Culture <0.5 [facility] [employer] Other Urine Culture >8 [employer] Other Urine Culture >4 [employer] Other Urine Culture <32 [facility] [employer] Other Urine Culture >2/38 [employer] Other Vital Signs Date Time Vital Sign Value 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 08-19-2023 09:45-0500 Body height 162.56 cm Nely Cruz Other [facility] [employer] Other 08-13-2023 14:00-0500 Body height 162.56 cm Manisha Marc Other [facility] [employer] Other 08-13-2023 14:00-0500 Body mass index (BMI) [Ratio] 52.35 kg/m2 Manisha Tari Other [employer] Other 08-13-2023 14:00-0500 Body weight 138.35 kg Manisha Barclayfani Other [employer] Other 08-13-2023 14:00-0500 Diastolic blood pressure 80 mm[Hg] Manisha Tari Other [employer] Other 08-13-2023 14:00-0500 SaO2% (BldA) [Mass fraction] 98 % Manisha Tari Other [employer] Other 08-13-2023 14:00-0500 Systolic blood pressure 114 mm[Hg] Manisha Tari Other [employer] Other 07-15-2023 07:45-0500 Body height 162.56 cm [employer] Other [employer] Other 07-15-2023 07:45-0500 Body mass index (BMI) [Ratio] 52.98 kg/m2 [employer] Other [employer] Other 07-15-2023 07:45-0500 Body weight 140.03 kg [employer] Other [employer] Other 07-15-2023 07:45-0500 Diastolic blood pressure 66 mm[Hg] [employer] Other [employer] Other 07-15-2023 07:45-0500 Respiratory rate 18 /min [employer] Other [employer] Other 07-15-2023 07:45-0500 SaO2% (BldA) [Mass fraction] 98 % Celio Mullins Other [employer] Other 07-15-2023 07:45-0500 Systolic blood pressure 112 mm[Hg] Celio Mullins Other [employer] Other 07-07-2023 11:15-0500 Body height 162.56 cm Michelle Oma Other [employer] Other 07-07-2023 11:15-0500 Body mass index (BMI) [Ratio] 52.69 kg/m2 Michelle Oma Other [employer] Other 07-07-2023 11:15-0500 Body temperature 98 [degF] Michelle Oma Other [employer] Other 07-07-2023 11:15-0500 Body weight 139.26 kg Michelle Oma Other [employer] Other 07-07-2023 11:15-0500 Respiratory rate 20 /min Michelle Oma Other [employer] Other 07-07-2023 11:15-0500 SaO2% (BldA) [Mass fraction] 98 % Michelle Oma Other [employer] Other 06-29-2023 10:20-0500 Body height 162.56 cm Michelle Oma Other [employer] Other 06-29-2023 10:20-0500 Body mass index (BMI) [Ratio] 53.03 kg/m2 Michelle Oma Other [employer] Other 06-29-2023 10:20-0500 Body temperature 99.7 [degF] Michelle Ernandez Other [employer] Other 06-29-2023 10:20-0500 Body weight 140.16 kg Michelle Ernandez Other [employer] Other 06-29-2023 10:20-0500 Respiratory rate 19 /min Michelle Ernandez Other [employer] Other 06-29-2023 10:20-0500 SaO2% (BldA) [Mass fraction] 98 % Michelle Ernandez Other [employer] Other 06-11-2023 15:30-0400 Body height 162.56 cm Manisha Marc Other [employer] Other 06-11-2023 15:30-0400 Body mass index (BMI) [Ratio] 53.79 kg/m2 Manisha Marc Other [employer] Other 06-11-2023 15:30-0400 Body weight 142.16 kg Manisha Marc Other [employer] Other 06-11-2023 15:30-0400 Diastolic blood pressure 62 mm[Hg] Manisha Marc Other [employer] Other 06-11-2023 15:30-0400 SaO2% (BldA) [Mass fraction] 99 % Manisha Marc Other [employer] Other 06-11-2023 15:30-0400 Systolic blood pressure 126 mm[Hg] Manisha Marc Other [employer] Other 05-06-2023 13:40-0400 Body height 162.56 cm Casandra Hassan Other [employer] Other 05-06-2023 13:40-0400 Body mass index (BMI) [Ratio] 53.65 kg/m2 Casandra Hassan Other [employer] Other 05-06-2023 13:40-0400 Body temperature 98.4 [degF] Casandra Hassan Other [employer] Other 05-06-2023 13:40-0400 Body weight 141.8 kg Casandra Hassan Other [employer] Other 05-06-2023 13:40-0400 Diastolic blood pressure 81 mm[Hg] Casandra Hassan Other [employer] Other 05-06-2023 13:40-0400 Respiratory rate 18 /min Casandra Hassan Other [employer] Other 05-06-2023 13:40-0400 SaO2% (BldA) [Mass fraction] 95 % Casandra Hassan Other [employer] Other 05-06-2023 13:40-0400 Systolic blood pressure 134 mm[Hg] Casandra Hassan Other [employer] Other 04-30-2023 08:30-0400 Body height 162.56 cm Manisha Marc Other [employer] Other 04-30-2023 08:30-0400 Body mass index (BMI) [Ratio] 53.86 kg/m2 Manisha Tari Other [employer] Other 04-30-2023 08:30-0400 Body weight 142.34 kg Manisha Tari Other [employer] Other 04-30-2023 08:30-0400 Diastolic blood pressure 82 mm[Hg] Manisha Tari Other [employer] Other 04-30-2023 08:30-0400 SaO2% (BldA) [Mass fraction] 100 % Manisha Tari Other [employer] Other 04-30-2023 08:30-0400 Systolic blood pressure 120 mm[Hg] Manisha Tari Other [employer] Other 04-29-2023 07:00-0400 Body height 162.56 cm Nely Fitt Other [employer] Other 04-29-2023 07:00-0400 Body mass index (BMI) [Ratio] 54.41 kg/m2 Nely Fitt Other [employer] Other 04-29-2023 07:00-0400 Body weight 143.79 kg Nely Fitt Other [employer] Other 03-25-2023 13:45-0400 Body height 162.56 cm Celio Mullins Other [employer] Other 03-25-2023 13:45-0400 Body mass index (BMI) [Ratio] 55.45 kg/m2 Celio Mullins Other [employer] Other 03-25-2023 13:45-0400 Body weight 146.56 kg Celio Mullins Other [employer] Other 03-25-2023 13:45-0400 Diastolic blood pressure 57 mm[Hg] Celio Mullins Other [employer] Other 03-25-2023 13:45-0400 Respiratory rate 18 /min Celio Mullins Other [employer] Other 03-25-2023 13:45-0400 SaO2% (BldA) [Mass fraction] 97 % Celio Mullins Other [employer] Other 03-25-2023 13:45-0400 Systolic blood pressure 106 mm[Hg] Celio Mullins Other [employer] Other 02-11-2023 12:15-0400 Body height 163.83 cm Casandra Hassan Other [employer] Other 02-11-2023 12:15-0400 Body mass index (BMI) [Ratio] 54.88 kg/m2 Casandra Hassan Other [employer] Other 02-11-2023 12:15-0400 Body temperature 98 [degF] Casandra Hassan Other [employer] Other 02-11-2023 12:15-0400 Body weight 147.33 kg Casandra Hassan Other [employer] Other 02-11-2023 12:15-0400 Diastolic blood pressure 85 mm[Hg] Casandra Tesfayeley Other [employer] Other 02-11-2023 12:15-0400 Respiratory rate 18 /min Casandra Tesfayeley Other [employer] Other 02-11-2023 12:15-0400 SaO2% (BldA) [Mass fraction] 98 % Casandra Tesfayeley Other [employer] Other 02-11-2023 12:15-0400 Systolic blood pressure 128 mm[Hg] Casandra Hassan Other [employer] Other 07-13-2022 11:15-0500 Body height 163.83 cm Michelle Ernandez Other [employer] Other 07-13-2022 11:15-0500 Body mass index (BMI) [Ratio] 51.54 kg/m2 Michelle Ernandez Other [employer] Other 07-13-2022 11:15-0500 Body temperature 96.6 [degF] Michelle Ernandez Other [employer] Other 07-13-2022 11:15-0500 Body weight 138.35 kg Michelle Haynesmond Other [employer] Other 07-13-2022 11:15-0500 Respiratory rate 18 /min Michelle Haynesmond Other [employer] Other 07-13-2022 11:15-0500 SaO2% (BldA) [Mass fraction] 96 % Michelle Haynesmond Other [employer] Other 07-06-2021 13:00-0500 Body height 163.83 cm Michelle Oma Other [employer] Other 07-06-2021 13:00-0500 Body mass index (BMI) [Ratio] 49 kg/m2 Michelle Oma Other [employer] Other 07-06-2021 13:00-0500 Body temperature 97.5 [degF] Michelle Oma Other [employer] Other 07-06-2021 13:00-0500 Body weight 131.54 kg Michelle Oma Other [employer] Other 07-06-2021 13:00-0500 SaO2% (BldA) [Mass fraction] 96 % Michelle Oma Other [employer] Other 06-17-2021 11:00-0400 Body height 163.83 cm Michelle Oma Other [employer] Other 06-17-2021 11:00-0400 Body mass index (BMI) [Ratio] 49.68 kg/m2 Michelle Oma Other [employer] Other 06-17-2021 11:00-0400 Body temperature 98.3 [degF] Michelle Oma Other [employer] Other 06-17-2021 11:00-0400 Body weight 133.36 kg Michelle Oma Other [employer] Other 06-17-2021 11:00-0400 Respiratory rate 18 /min Michelle Oma Other [employer] Other 06-17-2021 11:00-0400 SaO2% (BldA) [Mass fraction] 96 % Michelle Haynesmond Other [employer] Other 05-31-2021 13:50-0400 Body height 163.83 cm Michelle Ernandez Other [employer] Other 05-31-2021 13:50-0400 Body mass index (BMI) [Ratio] 50.36 kg/m2 Michelle Ernandez Other [employer] Other 05-31-2021 13:50-0400 Body temperature 97.8 [degF] Michelle Haynesmond Other [employer] Other 05-31-2021 13:50-0400 Body weight 135.17 kg Michelle Haynesmond Other [employer] Other 05-31-2021 13:50-0400 Diastolic blood pressure 90 mm[Hg] Michelle Oma Other [employer] Other 05-31-2021 13:50-0400 Respiratory rate 18 /min Michelle Haynesmond Other [employer] Other 05-31-2021 13:50-0400 SaO2% (BldA) [Mass fraction] 98 % Michelle Oma Other [employer] Other 05-31-2021 13:50-0400 Systolic blood pressure 150 mm[Hg] Michelle Oma Other [employer] Other Encounters Encounter Date Encounter Type Care Provider Facility Start: 08-19-2023 IBT FOR OBESITY GROU P 2-10 30M Nely Fitt [facility] Start: 08-19-2023 End: 08-19-2023 ambulatory Manisha Marc Facility:[facility] Start: 08-13-2023 End: 08-13-2023 ambulatory Manisha Marc Other [employer] Other Start: 08-13-2023 Office outpatient vi sit 15 minutes Manisha Marc [facility] Start: 07-24-2023 End: 07-24-2023 ambulatory MELA ANDERSON Not Available Start: 07-21-2023 End: 07-22-2023 ambulatory Bud Combs MD Facility: [facility] Start: 07-15-2023 End: 07-15-2023 ambulatory Celio Mullins Other [employer] Other Start: 07-15-2023 Follow-up encounter Celio Mullins [facility] Start: 07-07-2023 End: 07-07-2023 ambulatory Michelle Ernandez Other [employer] Other Start: 07-07-2023 Office outpatient vi sit 15 minutes Michelle Ernandez [facility] Start: 07-03-2023 End: 07-03-2023 ambulatory Celio Mullins Facility:[facility] Start: 07-03-2023 End: 07-03-2023 ambulatory ROSITA Marc Work Phone: [facility] Work Phone: Start: 07-03-2023 End: 07-03-2023 Patient encounter procedure ROSITA Marc Work Phone: [facility] [place] Work Phone: Start: 07-01-2023 End: 07-01-2023 ambulatory Celio Mullins Facility:[facility] Start: 07-01-2023 End: 07-01-2023 Patient encounter procedure ROSITA Marc Work Phone: [facility] [place] Work Phone: Start: 06-29-2023 End: 06-29-2023 ambulatory Michelle Haynesmond Other [employer] Other Start: 06-29-2023 Office outpatient vi sit 15 minutes Michelle Haynesmond [facility] Start: 06-17-2023 Registered Recurring ROSITA Marc Work Phone: [facility] Work Phone: Start: 06-11-2023 End: 06-11-2023 ambulatory Manisha Marc Other [employer] Other Start: 06-11-2023 Office outpatient vi sit 25 minutes Manisha Marc [facility] Start: 05-14-2023 ambulatory Manisha Marc Fac ility:[facility] Start: 05-06-2023 End: 05-06-2023 ambulatory Casandra Hassan Other [employer] Other Start: 05-06-2023 Office outpatient vi sit 10 minutes Casandra Hassan [facility] Start: 05-01-2023 End: 05-01-2023 ambulatory Manisha Marc Other [employer] Other Start: 05-01-2023 Telephone encounter Manisha Rico her [facility] Start: 04-30-2023 End: 04-30-2023 ambulatory Manisha Marc Other [employer] Other Start: 04-30-2023 Encounter for genera l adult medical examination without abnormal findings Manisha Marc [facility] Start: 04-30-2023 Periodic preventive med est patient 18-39 yrs Manisha Marc [facility] Start: 04-29-2023 ([facility]) [facility] Init ial Provider [facility]ely [facility] Start: 04-29-2023 End: 04-29-2023 ambulatory Nely Cruz Other [employer] Other Start: 03-25-2023 End: 03-25-2023 ambulatory Celio Mullins Other [employer] Other Start: 03-25-2023 Nutrition therapy Celio Mullins [facility] Start: 03-25-2023 Telephone encounter Celio Owens [facility] Start: 03-14-2023 End: 03-14-2023 ambulatory Nely Cruz Other [employer] Other Start: 03-14-2023 Telephone encounter Nely Cruz [facility] Start: 02-11-2023 End: 02-11-2023 ambulatory Casandra Hassan Other [employer] Other Start: 02-11-2023 Office outpatient vi sit 15 minutes Casandra Hassan [facility] Start: 12-31-2022 End: 01-01-[address] TOBIAS OSCAR . Facility:[facility] Start: 11-26-2022 End: 11-27-[address] TOBIAS OSCAR . Facility:[facility] Start: 11-08-2022 End: 11-09-[address] BOOM ROD Facility:[facility] Start: 10-28-2022 End: 10-28-[address] TOBIAS OSCAR . Facility:[facility] Start: 07-13-2022 End: 07-13-2022 ambulatory Michelle Ernandez Other [employer] Other Start: 07-13-2022 Office outpatient vi sit 15 minutes Michelle Ernandez [facility] Start: 03-07-2022 End: 03-08-[address] BOOM ROD Facility:[facility] Start: 01-25-2022 Encounter for genera l adult medical examination without abnormal findings DR BOOM ROD [facility] Start: 01-21-2022 End: 01-22-[address] BOOM ROD Facility:[facility] Start: 01-21-2022 End: 01-22-2022 Encounter for general adult medical examination without abnormal findings DR BOOM ROD Facility:[facility] Start: 07-06-2021 End: 07-06-2021 ambulatory Michelle Oma Other [employer] Other Start: 07-06-2021 Office outpatient vi sit 15 minutes Michelle Oma [facility] Start: 06-17-2021 Office outpatient vi sit 15 minutes Michelle Oma [facility] Start: 05-31-2021 Office outpatient vi sit 25 minutes Michelle Oma [facility] Start: 08-27-2018 End: 08-27-2018 ambulatory BRENT KINNEY Facility:[facility] Procedures Date Procedure Procedure Detail Performing Clinician Start: 05-31-2021 Piperacillin/tazobactam Michelle Oma Other Start: 08-27-2018 extraction, erupted tooth or exposed root (elevation and/or forceps removal) BRENT MENDOZACONTARAH Start: 08-27-2018 removal of impacted tooth - soft tissue BRENT TROCONIS Start: 08-27-2018 Urine test visual color cmprsn meths BRENT TROCONIS Immunizations Immunization Date Immunization Notes Care Provider Lillie rogers 03-03-2021 Do not use COVID-19 Pfizer 2 dose Manisha Marc Other [employer] Other 02-10-2021 Do not use COVID-19 Pfizer 2 dose Manisha Marc Other [employer] Other 08-03-2018 Toradol per 15 mg Michelle Dym ond Other [employer] Other Payers Date Payer Category Payer Self-pay [id number] 2022 Private Health Insurance 1990 Unknown [id number]. 732 1990 Unknown [id number] 2.16.840.1.291844.3.579.2. 593 1990 Unknown [id number] 2.16.840.1.627544.3.579.2. 593 1990 Unknown [id number] 2.16.840.1.205030.3.579.2. 593 1991 Unknown [id number] 2.16.840.1.312385.3.579.2. 593 1991 Unknown [id number] 2.16.840.1.709969.3.579.2. 593 1990 Unknown [id number] 2.16.840.1.405634.3.579.2. 593 1991 Unknown [id number] 2.16.840.1.415856.3.579.2. 1259 1991 Unknown [id number] 2.16.840.1.080759.3.579.2. 196 1958 Medicaid [id number] 1958 Unknown [id number] Unknown [place] [id number] Unknown [id number] 2.16.840.1.032328.3.579.2. 531 Unknown [id number] 2.16.840.1.610398.3.579.2. 531 Unknown [id number] 2.16.840.1.259080.3.579.2. 531 Unknown [id number] 2.16.840.1.538819.3.579.2. 531 Social History Date Type Detail Facility Unknown if ever smoked [employer] Other Sex Assigned At Sex Assigned At Bir th [employer] Other Start: 12-07-2021 Tobacco smoking status NHIS Never smoked tobacco (finding) [facility] Start: 1990 Sex Assigned At Female F [facility] Clinical Notes 05-31-2021 to 08-19-2023 Note Date & Type Note Facility 08-19-2023 Evaluation note Encounter Date Diagnosis Assessment Notes Aug, Obesity, unspecified classification , unspecified obesity type, unspecified whether serious comorbidity present (ICD-10 - E66.9) Aug, BMI 50.0-59.9, adult (ICD-10 - Z68.43) Aug, Other Summary of Visit: (A) Importnace of planning to simplify meals (B) Deconstructed Meals (C) Sharing meal ideas (D) Plate method for meal planning ; grocery shortcuts [employer] Other 12-27-2023 Evaluation note* Encounter Date Diagnosis Assessment Notes Treatment Notes Treatment Clinical Notes Jul, Primary hypertension (ICD-10 - I10) To goal. Discussed due to lower episdoes and lower blood pressure readings at home will decrease the Lisinopril to 10mg daily. Call with any changes in blood pressure or continued episdoes of dizziness. Prior to your visit today we reviewed [...] You have been given relevant education handouts. [employer] Other 11-28-2023 Evaluation note* Encounter Date Diagnosis Assessment Notes Treatment Notes Treatment Clinical Notes Jun, Severe obesity (BMI >= 40) [...] informed discussion, plan will be to continue lifestyleOrders:-Discu ssed cardiometabolic labs -Recommend to continue walking and swimming -Focus on protein intake 3 times daily. Avoid refined carbs -Patient endorses lightheadedness. Recommend to check blood pressure during episodes. She will further discuss with PCP. -Discussed increasing metformin dose to aid with insulin sensitivity. She will discuss with prescriberThis note was created with voice recognition software. Please excuse errors in service technician copier. Jun, Dietary surveillance and counseling (ICD-10 - [...] metformin 1000 mg total daily, managed by CLINICAL RESEARCH ANALYST Jun, Asthma (ICD-10 - J45.909) Jun, Migraine (ICD-10 - G43.909) Jun, Primary hypertension (ICD-10 - I10) Currently on pharmacotherapy Potential for overtreatment given lightheadedness Jun, Other An additional 9 minutes was spent counseling the patient on behavior modification including proper nutrition and physical activity. [employer] Other 11-20-2023 Evaluation note* Encounter Date Diagnosis [...] until you feel better. You may take [id number] Imodium for diarrhea as needed. Avoid dairy foods as well as greasy fried foods. Follow-up with your physician if no improvement in 2 to 3 days. May return to work on Jun, Diarrhea, unspecified type (ICD-10 - R19.7) Diarrhea: adult home care material was printed [employer] Other 11-12-2023 Evaluation note* Encounter Date Diagnosis [...] to 3-day Jun, Bronchitis (ICD-10 - J40) [employer] Other 10-25-2023 Evaluation note* Encounter Date Diagnosis Assessment Notes Treatment Notes Treatment Clinical Notes May, Degenerative lumbar disc (ICD-10 - M51.36) L4-5 Pt would like a referral to pain management regarding her chronic back pain. Her last x-ray of the lumbar spine was completed 10/2022 at [facility]--reviewed and in scanned documents. Referral [...] disorder (ICD-10 - F31.81) Referral placed to [facility] for medication mangement. [employer] Other 09-19-2023 Evaluation note* Encounter Date Diagnosis Assessment Notes Treatment Notes Treatment Clinical Notes Apr, Exposure to head lice (ICD-10 - Z20.7) Discussed with patient exam is without any signs of current lice infection. May return to work tomorrow. Patient completed next treatment yesterday. Patient verbalized understanding. [employer] Other 09-14-2023 Evaluation note* Encounter Date Diagnosis Assessment Notes Treatment Notes Treatment Clinical Notes Apr, Primary hypertension (ICD-10 - I10) [employer] Other 09-13-2023 Evaluation note* Encounter Date Diagnosis [...] (ICD-10 - R73.01) Will obtain records from [facility] for most recent labs. Patient is advised [...] Low back pain, unspecified (ICD-10 - M54.50) [employer] Other 09-12-2023 Evaluation note* Encounter Date Diagnosis [...] 2) Aim for < 45 g carb/meal [employer] Other 08-08-2023 Evaluation note* Encounter Date Diagnosis [...] voice recognition software. Please excuse errors in service technician copier. Mar, Dietary surveillance and counseling (ICD-10 - [...] as sweet tea, replace ice cream with Thai yogurt, use protein shake in the a.m. [...] with the patient, and documenting clinical information. [employer] Other 06-27-2023 Evaluation note* Encounter Date Diagnosis [...] 7 days, sooner if significantly worsening symptoms. [employer] Other 11-26-2022 Evaluation note* Encounter Date Diagnosis [...] 3 days. Off work today and tomorrow [employer] Other 11-19-2021 Evaluation note* Encounter Date Diagnosis [...] Patient care instructions given in writting by [employer] document. [employer] Other 10-31-2021 Evaluation note* Encounter Date Diagnosis [...] Patient care instructions given in writting by [employer] document. [employer] Other 10-14-2021 Evaluation note* Encounter Date Diagnosis Assessment Notes Treatment Notes Treatment Clinical Notes May, Dysuria (ICD-10 - R30.0) May, Urinary tract infection, site not specified (ICD-10 - N39.0) 14 May, 2021 Hematuria, unspecified (ICD-10 - R31.9) [employer] Other Evaluation noteNo InformationNort [employer] Other Evaluation noteNo assessment information available [facility] Work Phone: history general Narrative - Reported* [...] History Hospitalized for blood l oss 2010 [employer] Other history general Narrative - Reported* Type [...] History Hospitalized for blood l oss 2010 [employer] Other history general Narrative - Reported* Type [...] History Hospitalized for blood l oss 2010 [employer] Other history general Narrative - Reported* Type [...] History Hospitalized for blood l oss 2010 [employer] Other Hisupue general Narrative - Reported* Type Description Date [...] History Hospitalized for blood l oss 2010 [employer] Other Hisphkg general Narrative - Reported* Type Description Date [...] History Hospitalized for blood l oss 2010 [employer] Other history general Narrative - Reported* Type [...] History Hospitalized for blood l oss 2010 [employer] Other Reason for referral (narrative)* Reason *FU 06/20 would li ke a referral to pscyiatrist -- was recently diagnosed with bipolar and would like medication management. Diagnosis 1 Bipolar 2 disorder ( F31.81) Referral Organization [facility] Referring Provider First Name Manisha Referring Provider Last Name Charlyacher Referring Provider Specialty Nurse Pract farnazr Referred Organization [facility] Referred Address [address],[place], [place],[address] Referred Provider Specialty Psychiatry Referral Priority Routine General Notes Paola Henderson 01:25:30 PM >received today, not sure if [facility] does medication management, waiting for notes to be locked Paola Henderson 06/13/2023 10:34:39 AM >notes locked, referral faxed Clinical Notes p: [phone] f: [phone] [place] [facility] Reason *FU 06/20 would li ke a referral to pain management for other options for pain control for back pain Diagnosis 1 Degenerative lumbar disc (M51.36) Referral Organization [facility] Referring Provider First Name Manisha Referring Provider Last Name Tari Referring Provider Specialty Nurse Noble orozco Referred Organization [facility] Referred Provider Yrn Parsons Referred Address [address], [place],[address] Referred Provider Specialty Pain Medicin e Referral Priority Routine General Notes Paola Henderson 01:21:23 PM >received today, waiting for notes to be locked MasonGordon stephenya 06/13/2023 10:25:26 AM >notes locked, referral faxed Clinical Notes f: [phone] [employer] Other Summary Purpose Family History No Family History Records FoundNo Family History Records FoundNo Family History Records FoundNo Family History Records FoundNo Family History Records Found Advance Directives Advance Directive Response Recorded Date/ Time Advance Directives No April 3:36pm Chief Complaint and Reason for Visit Chief Complaint Obesity E66.01 E28.2 I10 E66.01 E28.2 I10 Additional Source Comments INFORMATION SOURCE (unrecogn ized section and content) DATE CREATED AUTHOR 08/27/2021 [employer] DATE CREATED AUTHOR AUTHOR'S ORGANIZ ATION [facility]/01/2023 [facility] DATE CREATED AUTHOR AUTHOR'S ORGANIZ ATION 07/26/2023 [facility] EPIC DATE CREATED AUTHOR AUTHOR'S ORGANIZ ATION 08/01/2023 [facility] DATE CREATED AUTHOR AUTHOR'S ORGANIZ ATION 08/19/2023 [facility] REASON FOR VISIT (unrecogniz ed section and [...] TASTE, HEADACHESNEEDS TO BE CHECK FOR THE FLUWMNLow BP-Med DiscussionNo Information Care Teams (unrecognized sec tion and content) Team Status: Active Member Role Status Dates Manisha Marc APRN [facility] Primary Care Provider Active Team Status: Active Member Role Status Dates Manisha Marc APRN [facility] Primary Care Provider, Attending Provider Active Team Status: Inactive Member Role Status Dates Manisha Macr APRN [facility] Primary Care Provider Active Celio Mullins , Attending Provider Active Goals (unrecognized section and [...] BE BASED ON THE PRIMARY CLINICAL RECORDS. [employer] provides no warranty or guarantee of the accuracy or completeness of information in this document.
--- NOTE | 2023-08-20 13:07 | US_ITS ---
Patient Name: DIMITRY PACK MR#: [id number] : 1990 Exam Date: 08/20/2023 Ordering Doctor: LILIYA Love . RADIOLOGY REPORT PROCEDURE: US BREAST RT COMPLETE COMPARISON: None. INDICATIONS: breast pain right N64.4 TECHNIQUE: Breast ultrasound was performed, with evaluation focusing only on specific areas of concern. FINDINGS: Complete right breast ultrasound demonstrates normal fibroglandular tissue. No focal ultrasound lesion is observed. Further evaluation of patient's pain should be based on clinical and physical exam RECOMMENDATIONS: No ultrasound abnormality to correspond to the patient's pain PLEASE NOTE: A NORMAL ULTRASOUND EXAMINATION DOES NOT EXCLUDE THE POSSIBILITY OF BREAST CANCER. A CLINICALLY SUSPICIOUS PALPABLE LUMP SHOULD BE BIOPSIED. Dictated by: Raul Chew MD on 08/20/2023 at 13:39 Approved by: Raul Chew MD on 08/20/2023 at 13:41
[2023-08-21 06:09] LABS: HBsAg Screen Negative (Negative); HCV Ab Non Reactive (Non Reactive); Hep A Ab, IgM Negative (Negative); Hep B Core Ab, IgM Negative (Negative)
== END 2023-08-20 12:59 | disposition home or self-care (01) ==
LOC: US 12:58
PROVIDERS: PCP Nurse Practitioner Family; Visit Provider Physician Assistant
DX: N64.4 Mastodynia (principal); Z11.59 Encounter for screening for other viral diseases
CPT/HCPCS: 36415; 76641; 80074

== ENCOUNTER 2023-09-08 08:05 | Day surgery (SDC) | payer OTHER, SELFPAY ==
--- OUTSIDE RECORDS SUMMARY | 2023-09-08 08:11 | XMS_ITS | CCD ---
Author Name Unknown Address [address] [place] [address] Organization [facility] Care Team Providers [employer] Name Role Phone BRENT KINNEY Referring Unavailable BRENT KINNEY Attending Unavailable BRENT KINNEY Admitting Unavailable Oma Michelle Unavailable VIOLA, DR NUR Consulting Unavailable ITASCA, DR NUR Admitting Unavailable ITASCA, DR NUR Primary Care Unavailable HOUSE, DR [...] Unavailable Celio Mullins Unavailable Manisha Marc Unavailable ROSITA Marc Primary Care Provider ROSITA Marc Attending Provider DO Celio Mullins Attending Provider [phone] MELA ANDERSON Attending Unavailable Garret CROWLEY, Bud Denis Attending Unavailable ROSITA Marc Primary Care Provider MD Clinton Frazier Attending Provider [phone] ROSITA Marc Attending Provider Manisha Marc Primary Care Unavailable Celio Mullins Admitting Unavailable Celio Mullins Attending Unavailable Manisha Marc Primary Care Unavailable Deirdre, Edward Admitting Unavailab le Edward Gilmore Attending Unavailab le Manisha Marc Primary Care Unavailable Manisha Marc Attending Unavailable Manisha Marc Admitting Unavailable Manisha Marc Primary Care Unavailable Clinton Frazier Admitting Unavailable Clinton Frazier Attending Unavailable Manisha Marc Primary Care Unavailable Celio Mullins Admitting Unavailable Celio Mullins Attending Unavailable Allergies Allergy Classification Reported Allergen(s) Allergy Type Date of Onset Reaction(s) Facility (20 sources) Amoxicillin; Translations: [AMOXICILLIN] Drug Allergy 07-08-20 16 rash [facility] Repository (4 sources) Cefaclor; Translations: [CEFACLOR] Drug Allergy 04-14-20 15 Unknown Reaction [facility] Repository (19 sources) Erythromycin; Translations: [ERYTHROMYCIN] Drug Allergy 04-14-20 15 hives [facility] Repository (19 sources) Cefaclor; Translations: [Ceclor] Drug Allergy 04-17-20 15 hives [facility] Repository (3 sources) Erythromycin Drug Allergy 04-17-20 15 Unknown Reaction [facility] Repository (3 sources) Cephalosporins (Antibiotic); Translations: [Cephalosporins] Allergy to substance 12-10-19 22 Unknown Reaction [facility] (3 sources) Lactulose; Translations: [lactulose] Drug Allergy 02-12-20 20 Unknown Reaction [facility] (1 source) Erythromycin Drug Allergy 02-12-20 20 [facility] Repository Medications Current Medications Medication Drug Class(es) Dates Sig (Normalized) Sig (Original) [id number] 200 actuat albuterol 0.09 mg/actuat metered dose [...] tablet (3 sources) Tetracycline-class Drug Start: 06-29-20 take 1 tablet by mouth every twelve hours Doxycycline Hyclate 100 MG 1 tablet Orally Twice a day for 10 day(s) Jun, Active DULoxetine 30 mg delayed release oral capsule (20 sources) Serotonin and Norepinephrine Reuptake Inhibitor Start: 02-17-20 take 90 mg by mouth once daily at bedtime Duloxetine Active 90 MG PO Daily at bedtime February 16, 2020 11:00pm take 2 capsules [...] Jun, Active gabapentin 300 mg oral capsule (14 sources) Anti-epileptic Agent Start: 02-12-2020 take 300 mg by mouth three times daily Gabapentin Active 300 MG PO Three times daily February 11, 2020 11:00pm take 1 capsule by mo uth once daily as needed Gabapentin 300 MG 1 capsule Orally Once a day PRN for 30 days PRN Active hydrOXYzine pamoate 25 mg oral capsule (19 sources) Antihistamine Start: 12-07-2021 take 25 mg by mouth three times daily Hydroxyzine Pamoate Active 25 MG PO Three times daily December 06, 2021 11:00pm Vistaril 25 MG 1 Capsule prn Orally 2-3 times per day Active take 1 capsule by mouth every ei ght hours Vistaril 25 MG 1 capsule as needed Orally every 8 hrs Not-Taking lisinopril 20 mg oral tablet (20 sources) Angiotensin Converting Enzyme Inhibitor Start: 12-07-2021 take 20 mg by mouth once daily Lisinopril Active 20 MG PO Daily December 06, 2021 11:00pm take 1 tablet by miranda th every twenty-four hours Lisinopril 10 MG 1 tablet Orally Once a day for 90 days Active Lisinopril Activ e melatonin 10 mg oral tablet (12 sources) take 1 tablet by miranda th every twenty-four hours Melatonin 10 MG 1 tablet at bedtime as needed Orally Once Daily PRN Active take 1 tablet by miranda th once daily at bedtime as needed Melatonin 10 MG 1 tablet at bedtime as needed Orally Once Daily PRN Active Melatonin PRN Ac tive metFORMIN hydrochloride 500 mg oral tablet (15 sources) Biguanide Start: 02-12-2020 take 500 mg by mouth twice daily Metformin Active 500 MG PO Twice daily February 11, 2020 11:00pm Metformin & Diet Manage Prod (5 sources) Metformin & Diet Manage Prod Active Multivitamin preparation (14 sources) Start: 12-07-2021 take 1 tablet by [...] May, Active valACYclovir 1000 mg oral tablet (20 sources) Herpesvirus Nucleoside Analog DNA Polymerase Inhibitor, [...] Sig (Original) ARIPiprazole 5 mg oral tablet (4 sources) Atypical Antipsychotic Start: 03-05-2020 End: 12-07-2021 take 5 mg by mouth once daily Aripiprazole Discontinued 5 MG PO Daily March 04, 2020 11:00pm December 07, 2021 9:45am [place] Not-Cate [place] Active 24 hr buPROPion hydrochloride 150 mg extended release oral tablet (2 sources) Aminoketone Start: 02-12-2020 End: 02-17-2020 take 150 mg by mouth once daily Bupropion Hcl Discontinued 150 MG PO Daily February 11, 2020 11:00pm February 17, 2020 10:57am citalopram 40 mg oral tablet (4 sources) Serotonin Reuptake Inhibitor Start: 02-12-2020 End: [...] succinate 50 mg extended release oral tablet (2 sources) beta-Adrenergic Ann Start: 02-12-2020 End: 12-07-2021 take [...] Date Documented Da te Episodic/Chronic Administrative/social admission (6 sources) Dietary counseling and surveillance; Translations: [Other [...] (COVID-19) RNA SURI+probe Ql (Unsp spec) Negative [facility] pop[facility] Other COVID + FLU Quick Testing Negative [employer] Other Alanine aminotransferase [En zymatic activity/volume] in Serum or PlasmaOrdered By: Celio Mullins on 07-03-2023 ALT [Catalytic activity/Vol] 22 U/L 7-52 [facility] Albumin [Mass/volume] in Ser um or Plasma by Bromocresol green (BCG) dye binding methoOrdered By: Celio Mullins on 07-03-2023 Albumin BCG dye [Mass/Vol] 4.4 g/dL 3.5-5.7 [facility] Alkaline phosphatase [Enzyma tic activity/volume] in Serum or PlasmaOrdered By: Celio Mullins on 07-03-2023 ALP [Catalytic activity/Vol] 68 U/L 34-104 [facility] Aspartate aminotransferase [ Enzymatic activity/volume] in Serum or PlasmaOrdered By: Celio Mullins on 07-03-2023 AST [Catalytic activity/Vol] 18 U/L 13-39 [facility] Bilirubin.total [Mass/volume ] in Serum or PlasmaOrdered By: Celio Mullins on 07-03-2023 Bilirubin [Mass/Vol] 0.4 mg/dL 0.3-1.0 [facility] Calcium [Mass/volume] in Ser um or PlasmaOrdered By: Celio Mullins on 07-03-2023 Calcium [Mass/Vol] 9.4 mg/dL 8.6-10.3 [facility] Carbon dioxide, total [Moles /volume] in Serum or PlasmaOrdered By: Celio Mullins on 07-03-2023 CO2 [Moles/Vol] 30.1 mmol/L 21.0-31.0 [facility] Chloride [Moles/volume] in S marta or PlasmaOrdered By: Celio Mullins on 07-03-2023 Chloride [Moles/Vol] 105 mmol/L 98-107 [facility] Cholesterol [Mass/volume] in Serum or PlasmaOrdered By: Celio Mullins on 07-03-2023 Cholesterol [Mass/Vol] 126 mg/dL 140-200 [facility] Comment on above: Chol less than 200 m g/dl low riskChol 201-239 mg/dl borderline riskChol 240 mg/dl and greater high risk Cholesterol in LDL Calc [Mas s/Vol]Ordered By: Celio Mullins on 07-03-2023 Cholesterol in LDL [Mass/Vol] 69 mg/dL 0-100 [facility] Comment on above: LDL ATP III CLASSIFI CATIONLDL less than 100 mg/dL OptimalLDL 100-129 mg/dL Near or above optimalLDL 130-159 mg/dL Borderline highLDL 160-189 mg/dL HighLDL greater than 189 mg/dL Very high Cholesterol in VLDL Calc [Ma ss/Vol]Ordered By: Celio Mullins on 07-03-2023 Cholesterol in VLDL [Mass/Vol] 18 mg/dL [facility] Comprehensive Metabolic Pane landon 07-03-2023 Albumin [Mass/Vol] 4.4 g/dL Normal 3.5-5.7 [facility] Comment on above: Performed By: #### L IPID, CMP #### [facility] [address] Albumin/Globulin [Mass ratio] 1.4 {ratio} Normal [facility] Comment on above: Performed By: #### L IPID, CMP #### [facility] [address] [place] [id number] [place] ALP [Catalytic activity/Vol] 68 U/L Normal 34-104 [facility] Comment on above: Performed By: #### L IPID, CMP #### [facility] [address] [place] [id number] [place] ALT [Catalytic activity/Vol] 22 U/L Normal 7-52 [facility] Comment on above: Performed By: #### L IPID, CMP #### [facility] [address] Anion gap [Moles/Vol] 10.2 mmol/L Normal 6.0-15.0 [facility] Comment on above: Performed By: #### L IPID, CMP #### [facility] [address] AST [Catalytic activity/Vol] 18 U/L Normal 13-39 [facility] Comment on above: Performed By: #### L IPID, CMP #### [facility] [address] Bilirubin [Mass/Vol] 0.4 mg/dL Normal 0.3-1.0 [facility] Comment on above: Performed By: #### L IPID, CMP #### [facility] [address] Calcium [Mass/Vol] 9.4 mg/dL Normal 8.6-10.3 [facility] Comment on above: Performed By: #### L IPID, CMP #### [facility] [address] Chloride [Moles/Vol] 105 mmol/L Normal 98-107 [facility] Comment on above: Performed By: #### L IPID, CMP #### [facility] [address] CO2 [Moles/Vol] 30.1 mmol/L Normal 21.0-31.0 [facility] Comment on above: Performed By: #### L IPID, CMP #### [facility] [address] Creatinine [Mass/Vol] 0.63 mg/dL Normal 0.60-1.20 [facility] Comment on above: Performed By: #### L IPID, CMP #### [facility] [address] [place] [address] [place] GFR/1.73 sq M.predicted MDRD (S/P/Bld) [Vol rate/Area] mL/min/{1.73_m2} Normal [facility] Comment on above: Performed By: #### L IPID, CMP #### [facility] [address] Globulin (S) [Mass/Vol] 3.1 g/dL Normal [facility] Comment on above: Performed By: #### L IPID, CMP #### [address] Glucose [Mass/Vol] 97 mg/dL Normal 70-100 [facility] Comment on above: Result Comment: [facility] Glucose Reference Range is dependent on time and content of last meal. Glucose of more than 200 mg/dL in a nonstressed, ambulatory subject supports the diagnosis of Diabetes Mellitus. ADA recommended reference range Performed By: #### L IPID, CMP #### [address] Potassium [Moles/Vol] 4.3 mmol/L Normal 3.5-5.1 [facility] Comment on above: Performed By: #### L IPID, CMP #### [address] Protein [Mass/Vol] 7.5 g/dL Normal 6.4-8.9 [facility] Comment on above: Performed By: #### L IPID, CMP #### [address] Sodium [Moles/Vol] 141 mmol/L Normal 136-145 [facility] Comment on above: Performed By: #### L IPID, CMP #### [place] [address] [place] Urea nitrogen [Mass/Vol] 13 mg/dL Normal 7-25 [facility] Comment on above: Performed By: #### L IPID, CMP #### [facility] [address] [place] [address] Creatinine [Mass/volume] in Serum or PlasmaOrdered By: Celio Mullins on 07-03-2023 Creatinine [Mass/Vol] 0.63 mg/dL 0.60-1.20 [facility] Globulin Calc (S) [Mass/Vol] Ordered By: Celio Mullins on 07-03-2023 Globulin (S) [Mass/Vol] 3.1 g/dL [facility] Glucose [Mass/volume] in Ser um or PlasmaOrdered By: Celio Mullins on 07-03-2023 Glucose [Mass/Vol] 97 mg/dL 70-100 [facility] Comment on above: ADA recommended refe rence rangeRandom Glucose Reference Range is dependent on time and content of last meal. Glucose of more than 200 mg/dL in a nonstressed, ambulatory subject supports the diagnosis of Diabetes Mellitus. Lipid Panelon 07-03-2023 Cholesterol [Mass/Vol] 126 mg/dL Low 140-200 [facility] Comment on above: Result Comment: Chol less than 200 mg/dl low risk Chol 201-239 mg/dl borderline risk Chol 240 mg/dl and greater high risk Performed By: #### L IPID, CMP #### [facility] [address] Cholesterol in HDL [Mass/Vol] 39 mg/dL Normal 23-92 [facility] Comment on above: Result Comment: HDL CHOL ATP-III CLASSIFICATION Cardiovascular Risk HDL > or equal to 60 mg/dL LOW HDL < 40 mg/dL HIGH Performed By: #### L IPID, CMP #### [facility] [address] Cholesterol.total/Mali sterol in HDL [Mass ratio] 3.2 {ratio} Normal <5.0 [facility] Comment on above: Result Comment: PERF ORMED BY: [place] [address] PATHOLOGIST SENIOR FIREWALL ENGINEER NESHA MAIER M.D. Performed By: #### L IPID, CMP #### [facility] [address] [place] [address] [place] LDL Cholesterol,Calculated 69 mg/dL Normal 0-100 [facility] Comment on above: Result Comment: LDL ATP III CLASSIFICATION LDL less than 100 mg/dL Optimal LDL 100-129 mg/dL Near or above optimal LDL 130-159 mg/dL Borderline high LDL 160-189 mg/dL High LDL greater than 189 mg/dL Very high Performed By: #### L IPID, CMP #### [facility] [address] Triglyceride w/Reflex 92 mg/dL Normal 0-149 [facility] Comment on above: Result Comment: TRIG ATP III CLASSIFICATION TRIG less than 150 mg/dL Normal TRIG 150-199 mg/dL Borderline high TRIG 200-500 mg/dL High TRIG greater than 500 mg/dL Very high Standard traceable to the Center for Disease Conrtrol and Prevention (CDC) test method. Performed By: #### L IPID, CMP #### [facility] [address] VLDL CHOLESTEROL 18 mg/dL Normal [facility] Comment on above: Performed By: #### L IPID, CMP #### [facility] [address] No Panel InformationOrdered By: Celio Mullins on 07-03-2023 Estimated GFR (CKD-EPI) > 60.0 mL/Min [facility] Creatinine Clearance (Chem N/A [facility] Potassium [Moles/volume] in Serum or PlasmaOrdered By: Celio Mullins on 07-03-2023 Potassium [Moles/Vol] 4.3 mmol/L 3.5-5.1 [facility] Protein [Mass/volume] in Ser um or PlasmaOrdered By: Celio Mullins on 07-03-2023 Protein [Mass/Vol] 7.5 g/dL 6.4-8.9 [facility] Serum or plasma albumin/glob ulin mass ratioOrdered By: Celio Mullins on 07-03-2023 Albumin/Globulin [Mass ratio] 1.4 {ratio} [facility] Serum or plasma anion gap de terminationOrdered By: Celio Mullins on 07-03-2023 Anion gap [Moles/Vol] 10.2 mmol/L 6.0-15.0 [facility] Serum or plasma high density lipoprotein (HDL) cholesterol measurementOrdered By: Celio Mullins on 07-03-2023 Cholesterol in HDL [Mass/Vol] 39 mg/dL [facility] Comment on above: HDL CHOL ATP-III CLA SSIFICATION Cardiovascular RiskHDL > or equal to 60 mg/dL LOWHDL < 40 mg/dL HIGH Serum or plasma total choles terol/high density lipoprotein (HDL) cholesterol mass ratOrdered By: Celio Mullins on 07-03-2023 Cholesterol.total/Mali sterol in HDL [Mass ratio] 3.2 {ratio} <5.0 [facility] Sodium [Moles/volume] in Ser um or PlasmaOrdered By: Celio Mullins on 07-03-2023 Sodium [Moles/Vol] 141 mmol/L 136-145 [facility] Triglyceride [Mass/volume] i n Serum or PlasmaOrdered By: Celio Mullins on 07-03-2023 Triglyceride [Mass/Vol] 92 mg/dL 0-149 [facility] Comment on above: TRIG ATP III CLASSIF ICATIONTRIG less than 150 mg/dL NormalTRIG 150-199 mg/dL Borderline highTRIG 200-500 mg/dL High TRIG greater than 500 mg/dL Very highStandard traceable to the Center for Disease Conrtrol and Prevention (CDC) test method. Urea nitrogen [Mass/volume] in Serum or PlasmaOrdered By: Celio Mullins on 07-03-2023 Urea nitrogen [Mass/Vol] 13 mg/dL 7-25 [facility] A1C with Estimated Average G luon 07-01-2023 Glucose [Mass/Vol] 117 mg/dL Normal [facility] Comment on above: Order Comment: Reaso n for Exam Severe obesity (BMI >= 40);PCOS (polycystic ovarian syndrome Result Comment: PERF ORMED BY: [place] [address] PATHOLOGIST SENIOR FIREWALL ENGINEER NESHA MAIER M.D. Performed By: #### A POB, LIPA #### [facility] , #### CMP, A1C WTH eA #### [address] HbA1c (Bld) [Mass fraction] 5.7 % High 4.3-5.6 [facility] Comment on above: Order Comment: Reaso n for Exam Severe obesity (BMI >= 40);PCOS (polycystic ovarian syndrome Result Comment: Incr eased risk for diabetes: 5.7 - 6.4 diabetes: >6.4 glycemic control for adults with diabetes: <7.0 Performed By: #### A POB, LIPA #### [facility] , #### CMP, A1C [facility] eA #### [facility] [address] [place] [id number] [facility] Alanine aminotransferase [En zymatic activity/volume] in Serum or PlasmaOrdered By: Celio Mullins on 07-01-2023 ALT [Catalytic activity/Vol] 21 U/L 7-52 [facility] Albumin [Mass/volume] in Ser um or Plasma by Bromocresol green (BCG) dye binding methoOrdered By: Celio Mullins on 07-01-2023 Albumin BCG dye [Mass/Vol] 4.6 g/dL 3.5-5.7 [facility] Alkaline phosphatase [Enzyma tic activity/volume] in Serum or PlasmaOrdered By: Celio Mullins on 07-01-2023 ALP [Catalytic activity/Vol] 72 U/L 34-104 [facility] Apolipoprotein Bon 3 Apolipoprotein B [Mass/Vol] 83 mg/dL Normal <90 [facility] Comment on above: Order Comment: Reaso n for Exam Severe obesity (BMI >= 40);PCOS (polycystic ovarian syndrome Result Comment: Hedy enrrique < 90 Borderline High 90 - 99 High 100 - 130 Very High >130 ASCVD RISK THERAPEUTIC TARGET CATEGORY APO B (mg/dL) Very High Risk <80 (if extreme risk <70) High Risk <90 Moderate Risk <90 Performed at: [facility] [id number] Manager Ethics: Jeanna Case MD, Phone: [phone] PERFORMED BY: [place] [address] PATHOLOGIST SENIOR FIREWALL ENGINEER NESHA MAIER M.D. Performed By: #### A POB, LIPA #### [facility] , #### CMP, A1C [facility] eA #### [facility] [address] [place] [id number] [facility] Apolipoprotein B [Mass/volum e] in Serum or PlasmaOrdered By: Celio Mullins on 07-01-2023 Apolipoprotein B [Mass/Vol] 83 mg/dL <90 [facility] Comment on above: Desirable < 90 Charissa almanza High 90 - 99 High 100 - 130 Very High >130 ASCVD RISK THERAPEUTIC TARGET CATEGORY APO B (mg/dL) Very High Risk <80 (if extreme risk <70) High Risk <90 Moderate Risk <90Performed at: [facility] [id number] Director: Jeanna Case MD, Phone: [phone] Aspartate aminotransferase [ Enzymatic activity/volume] in Serum or PlasmaOrdered By: Celio Mullins on 07-01-2023 AST [Catalytic activity/Vol] 19 U/L 13-39 [facility] Bilirubin.total [Mass/volume ] in Serum or PlasmaOrdered By: Celio Mullins on 07-01-2023 Bilirubin [Mass/Vol] 0.4 mg/dL 0.3-1.0 [facility] Calcium [Mass/volume] in Ser um or PlasmaOrdered By: Celio Mullins on 07-01-2023 Calcium [Mass/Vol] 9.8 mg/dL 8.6-10.3 [facility] Carbon dioxide, total [Moles /volume] in Serum or PlasmaOrdered By: Celio Mullins on 07-01-2023 CO2 [Moles/Vol] 25.3 mmol/L 21.0-31.0 [facility] Chloride [Moles/volume] in S marta or PlasmaOrdered By: Celio Mullins on 07-01-2023 Chloride [Moles/Vol] 105 mmol/L 98-107 [facility] Comprehensive Metabolic Pane landon 07-01-2023 Albumin [Mass/Vol] 4.6 g/dL Normal 3.5-5.7 [facility] Comment on above: Order Comment: Reaso n for Exam Severe obesity (BMI >= 40);PCOS (polycystic ovarian syndrome NON FASTING Performed By: #### A POB, LIPA #### [facility] , #### CMP, A1C WTH eA #### [address] Albumin/Globulin [Mass ratio] 1.4 {ratio} Normal [facility] Comment on above: Order Comment: Reaso n for Exam Severe obesity (BMI >= 40);PCOS (polycystic ovarian syndrome NON FASTING Performed By: #### A POB, LIPA #### [facility] , #### CMP, A1C WTH eA #### [address] ALP [Catalytic activity/Vol] 72 U/L Normal 34-104 [facility] Comment on above: Order Comment: Reaso n for Exam Severe obesity (BMI >= 40);PCOS (polycystic ovarian syndrome NON FASTING Result Comment: PERF ORMED BY: [place] [address] PATHOLOGIST SENIOR FIREWALL ENGINEER NESHA MAIER M.D. Performed By: #### A POB, LIPA #### [facility] , #### CMP, A1C WTH eA #### [address] ALT [Catalytic activity/Vol] 21 U/L Normal 7-52 [facility] Comment on above: Order Comment: Reaso n for Exam Severe obesity (BMI >= 40);PCOS (polycystic ovarian syndrome NON FASTING Performed By: #### A POB, LIPA #### [facility] , #### CMP, A1C WTH eA #### [facility] [address] [place] [address] Anion gap [Moles/Vol] 11.5 mmol/L Normal 6.0-15.0 [facility] Comment on above: Order Comment: Reaso n for Exam Severe obesity (BMI >= 40);PCOS (polycystic ovarian syndrome NON FASTING Performed By: #### A POB, LIPA #### [facility] , #### CMP, A1C WTH eA #### [facility] [address] [place] [address] [place] AST [Catalytic activity/Vol] 19 U/L Normal 13-39 [facility] Comment on above: Order Comment: Reaso n for Exam Severe obesity (BMI >= 40);PCOS (polycystic ovarian syndrome NON FASTING Performed By: #### A POB, LIPA #### [facility] , #### CMP, A1C WTH eA #### [place] [address] [place] Bilirubin [Mass/Vol] 0.4 mg/dL Normal 0.3-1.0 [facility] Comment on above: Order Comment: Reaso n for Exam Severe obesity (BMI >= 40);PCOS (polycystic ovarian syndrome NON FASTING Performed By: #### A POB, LIPA #### [facility] , #### CMP, A1C WTH eA #### [place] [address] [place] Calcium [Mass/Vol] 9.8 mg/dL Normal 8.6-10.3 [facility] Comment on above: Order Comment: Reaso n for Exam Severe obesity (BMI >= 40);PCOS (polycystic ovarian syndrome NON FASTING Performed By: #### A POB, LIPA #### [facility] , #### CMP, A1C WTH eA #### [facility] [address] [place] [address] [place] Chloride [Moles/Vol] 105 mmol/L Normal 98-107 [facility] Comment on above: Order Comment: Reaso n for Exam Severe obesity (BMI >= 40);PCOS (polycystic ovarian syndrome NON FASTING Performed By: #### A POB, LIPA #### [facility] , #### CMP, A1C WTH eA #### [facility] [address] [place] [address] [place] CO2 [Moles/Vol] 25.3 mmol/L Normal 21.0-31.0 [facility] Comment on above: Order Comment: Reaso n for Exam Severe obesity (BMI >= 40);PCOS (polycystic ovarian syndrome NON FASTING Performed By: #### A POB, LIPA #### [facility] , #### CMP, A1C WTH eA #### [facility] [address] [place] [address] [place] Creatinine [Mass/Vol] 0.64 mg/dL Normal 0.60-1.20 [facility] Comment on above: Order Comment: Reaso n for Exam Severe obesity (BMI >= 40);PCOS (polycystic ovarian syndrome NON FASTING Performed By: #### A POB, LIPA #### [facility] , #### CMP, A1C WTH eA #### [place] [address] [place] GFR/1.73 sq M.predicted MDRD (S/P/Bld) [Vol rate/Area] mL/min/{1.73_m2} [facility] Comment on above: Order Comment: Reaso n for Exam Severe obesity (BMI >= 40);PCOS (polycystic ovarian syndrome NON FASTING Performed By: #### A POB, LIPA #### [facility] , #### CMP, A1C WTH eA #### [facility] [address] [place] [address] Globulin (S) [Mass/Vol] 3.2 g/dL Normal [facility] Comment on above: Order Comment: Reaso n for Exam Severe obesity (BMI >= 40);PCOS (polycystic ovarian syndrome NON FASTING Performed By: #### A POB, LIPA #### [facility] , #### CMP, A1C WTH eA #### [facility] [address] [place] [address] [place] Glucose [Mass/Vol] 95 mg/dL Normal 70-100 [facility] Comment on above: Order Comment: Reaso n for Exam Severe obesity (BMI >= 40);PCOS (polycystic ovarian syndrome NON FASTING Result Comment: Fowler Glucose Reference Range is dependent on time and content of last meal. Glucose of more than 200 mg/dL in a nonstressed, ambulatory subject supports the diagnosis of Diabetes Mellitus. ADA recommended reference range Performed By: #### A POB, LIPA #### [facility] , #### CMP, A1C WTH eA #### [facility] [address] [place] [address] [place] Potassium [Moles/Vol] 3.8 mmol/L Normal 3.5-5.1 [facility] Comment on above: Order Comment: Reaso n for Exam Severe obesity (BMI >= 40);PCOS (polycystic ovarian syndrome NON FASTING Performed By: #### A POB, LIPA #### [facility] , #### CMP, A1C WTH eA #### [place] [address] [place] Protein [Mass/Vol] 7.8 g/dL Normal 6.4-8.9 [facility] Comment on above: Order Comment: Reaso n for Exam Severe obesity (BMI >= 40);PCOS (polycystic ovarian syndrome NON FASTING Performed By: #### A POB, LIPA #### [facility] , #### CMP, A1C WTH eA #### [place] [address] [place] Sodium [Moles/Vol] 138 mmol/L Normal 136-145 [facility] Comment on above: Order Comment: Reaso n for Exam Severe obesity (BMI >= 40);PCOS (polycystic ovarian syndrome NON FASTING Performed By: #### A POB, LIPA #### [facility] , #### CMP, A1C WTH eA #### [place] [id number] [place] Urea nitrogen [Mass/Vol] 16 mg/dL Normal 7-25 [facility] Comment on above: Order Comment: Reaso n for Exam Severe obesity (BMI >= 40);PCOS (polycystic ovarian syndrome NON FASTING Performed By: #### A POB, LIPA #### [facility] , #### CMP, A1C WTH eA #### [facility] [address] Creatinine [Mass/volume] in Serum or PlasmaOrdered By: Celio Mullins on 07-01-2023 Creatinine [Mass/Vol] 0.64 mg/dL 0.60-1.20 [facility] Globulin Calc (S) [Mass/Vol] Ordered By: Celio Mullins on 07-01-2023 Globulin (S) [Mass/Vol] 3.2 g/dL [facility] Glucose [Mass/volume] in Ser um or PlasmaOrdered By: Celio Mullins on 07-01-2023 Glucose [Mass/Vol] 95 mg/dL 70-100 [facility] Comment on above: ADA recommended refe rence rangeRandom Glucose Reference Range is dependent on time and content of last meal. Glucose of more than 200 mg/dL in a nonstressed, ambulatory subject supports the diagnosis of Diabetes Mellitus. Glucose mean value [Mass/vol ume] in Blood Estimated from glycated hemoglobinOrdered By: Celio Mullins on 07-01-2023 Average glucose Estimated from glycated hemoglobin (Bld) [Mass/Vol] 117 mg/dL [facility] Hemoglobin A1c percentageOrd ered By: Celio Mullins on 07-01-2023 HbA1c (Bld) [Mass fraction] 5.7 % 4.3-5.6 [facility] Comment on above: Increased risk for d iabetes: 5.7 - 6.4diabetes: >6.4glycemic control for adults with diabetes: <7.0 Lipoprotein (a)on 07-01-2023 Lipoprotein a [Mass/Vol] 13.0 mg/dL Normal <75.0 [facility] Comment on above: Order Comment: Reaso n for Exam Severe obesity (BMI >= 40);PCOS (polycystic ovarian syndrome Result Comment: Note : Values greater than or equal to 75.0 nmol/L may indicate an independent risk factor for CHD, but must be evaluated with caution when applied to non- populations due to the influence of genetic factors on Lp(a) across ethnicities. Performed at: [facility] [address] [id number] Manager Ethics: Cassius Zhong PhD, Phone: [phone] Performed By: #### A POB, LIPA #### [facility] , #### CMP, A1C WTH eA #### [facility] [address] No Panel InformationOrdered By: Celio Mullins on 07-01-2023 Estimated GFR (CKD-EPI) > 60.0 mL/Min [facility] Creatinine Clearance (Chem N/A [facility] Potassium [Moles/volume] in Serum or PlasmaOrdered By: Celio Mullins on 07-01-2023 Potassium [Moles/Vol] 3.8 mmol/L 3.5-5.1 [facility] Protein [Mass/volume] in Ser um or PlasmaOrdered By: Celio Mullins on 07-01-2023 Protein [Mass/Vol] 7.8 g/dL 6.4-8.9 [facility] Serum or plasma albumin/glob ulin mass ratioOrdered By: Celio Mullins on 07-01-2023 Albumin/Globulin [Mass ratio] 1.4 {ratio} [facility] Serum or plasma anion gap de terminationOrdered By: Celio Mullins on 07-01-2023 Anion gap [Moles/Vol] 11.5 mmol/L 6.0-15.0 [facility] Serum or plasma lipoprotein a measurement (moles/volume)Ordered By: Celio Mullins on 07-01-2023 Lipoprotein a [Moles/Vol] 13.0 nmol/L <75.0 [facility] Comment on above: Note: Values greater than or equal to 75.0 nmol/L may indicate an independent risk factor for CHD, but must be evaluated with caution when applied to non- populations due to the influence of genetic factors on Lp(a) across ethnicities.Performed at: - [facility] [id number] [place], [place] [id number] Director: Cassius Zhong PhD, Phone: [phone] Sodium [Moles/volume] in Ser um or PlasmaOrdered By: Celio Mullins on 07-01-2023 Sodium [Moles/Vol] 138 mmol/L 136-145 [facility] Urea nitrogen [Mass/volume] in Serum or PlasmaOrdered By: Celio Mullins on 07-01-2023 Urea nitrogen [Mass/Vol] 16 mg/dL 03-11 [facility] COVID Quick Testingon 2022 Result Negative [employer] Other SARS-CoV-2 (COVID-19) RNA NA A+probe Ql (Resp)on 02-11-2023 SARS-CoV-2 (COVID-19) RNA SURI+probe Ql (Unsp spec) Negative [employer] Other DHEA-SULFATEon 01-01-2023 DHEA-Sulfate 95.3 ug/dL Normal 84.8-378.0 [facility] Comment on above: Performed By: #### D RIMA #### [facility] [address] [place] [address] Dr. Kaushik Palomares FSHon 01-01-2023 FSH 4.6 mIU/mL Normal [facility] Comment on above: Result Comment: Adul t Female: Follicular phase 3.5 - 12.5 Ovulation phase 4.7 - 21.5 Luteal phase 1.7 - 7.7 Postmenopausal 25.8 - 134.8 Performed By: #### C BC #### [facility] [address] [place] [address] Dr. Kaushik Palomares LUTEINIZING HORMONE (LH)on 01-01-2023 LH 3.5 mIU/mL Normal [facility] Comment on above: Result Comment: Adul t Female: Follicular phase 2.4 - 12.6 Ovulation phase 14.0 - 95.6 Luteal phase 1.0 - 11.4 Postmenopausal 7.7 - 58.5 Performed By: #### L BCLH #### [facility] [address] [place] [address] Dr. Kaushik Palomares CBC AUTO DIFFon 12-31-2022 BASO # 0.1 103/ul Normal 0.0-0.1 [facility] Comment on above: Performed By: #### C BC #### [facility] [address] [place] [address] Dr. Kaushik Palomares Basophils/100 WBC (Bld) 0.8 % Normal 0.2-2.0 [facility] Comment on above: Performed By: #### C BC #### [facility] [address] [place] [address] Dr. Kaushik Palomares EO # 0.1 103/ul Normal 0.0-0.7 [facility] Comment on above: Performed By: #### C BC #### [facility] [address] [place] [address] Dr. Kaushik Palomares Eosinophils/100 WBC (Bld) 1.7 % Normal 0.9-7.0 [facility] Comment on above: Performed By: #### C BC #### [facility] [address] [place] [address] Dr. Kaushik Palomares Erythrocyte distribution width (RBC) [Ratio] 12.8 % Normal 11.0-15.0 [facility] Comment on above: Performed By: #### C BC #### [facility] [address] [place] [address] Dr. Kaushik Palomares Hematocrit (Bld) [Volume fraction] 33.0 % Critically low 36.0-48.0 [facility] Comment on above: Performed By: #### C BC #### [facility] [address] [place] [address] Dr. Kaushik Palomares Hemoglobin (Bld) [Mass/Vol] 11.0 g/dL Critically low 12.0-16.0 [facility] Comment on above: Performed By: #### C BC #### [facility] [address] [place] [address] Dr. Kaushik Palomares IG # 0.03 10e3/ul Normal 0.00-0.03 [facility] Comment on above: Performed By: #### C BC #### [facility] [address] [place] [address] Dr. Kaushik Palomares IG % 0.5 % Normal 0.0-0.5 [facility] Comment on above: Performed By: #### C BC #### [facility] [address] [place] [address] Dr. Kaushik Palomares LYMPH # 2.4 103/ul Normal 1.2-3.8 [facility] Comment on above: Performed By: #### C BC #### [facility] [address] [place] [address] Dr. Kaushik Palomares Lymphocytes/100 WBC (Bld) 36.6 % Normal 20.5-60.0 [facility] Comment on above: Performed By: #### C BC #### [facility] [address] [place] [address] Dr. Kaushik Palomares MANUAL DIFF REQ NO Normal [facility] Comment on above: Performed By: #### C BC #### [facility] [address] [place] [address] Dr. Kaushik Palomares MCH (RBC) [Entitic mass] 29.0 pg Normal 26.7-34.0 [facility] Comment on above: Performed By: #### C BC #### [facility] [address] [place] [address] Dr. Kaushik Palomares MCHC (RBC) [Mass/Vol] 33.3 g/dL Normal 29.9-35.2 [facility] Comment on above: Performed By: #### C BC #### [facility] [address] [place] [address] Dr. Kaushik Palomares MCV (RBC) [Entitic vol] 87.1 fL Normal 81.0-99.0 [facility] Comment on above: Performed By: #### C BC #### [facility] [address] [place] [address] Dr. Kaushik Palomares MONO # 0.2 103/ul Critically low 0.3-0.8 [facility] Comment on above: Performed By: #### C BC #### [facility] [address] [place] [address] Dr. Kaushik Palomares Monocytes/100 WBC (Bld) 3.6 % Normal 1.7-12.0 [facility] Comment on above: Performed By: #### C BC #### [facility] [address] [place] [address] Dr. Kaushik Palomares NEUT # 3.7 103/ul Normal 1.4-6.5 [facility] Comment on above: Performed By: #### C BC #### [facility] [address] [place] [address] Dr. Kaushik Palomares Neutrophils/100 WBC (Bld) 56.8 % Normal 43.0-75.0 [facility] Comment on above: Performed By: #### C BC #### [facility] [address] [place] [address] Dr. Kaushik Palomares Platelet mean volume (Bld) [Entitic vol] 9.8 fL Normal 9.5-13.5 [facility] Comment on above: Performed By: #### C BC #### [facility] [address] [place] [address] Dr. Kaushik Palomares PLT 234 103/ul Normal 150-450 [facility] Comment on above: Performed By: #### C BC #### [facility] [address] [place] [address] Dr. Kaushik Palomares RBC 3.79 106/ul Critically low 4.20-5.40 [facility] Comment on above: Performed By: #### C BC #### [facility] [address] [place] [address] Dr. Kaushik Palomares WBC 6.5 103/ul Normal 4.0-11.0 [facility] Comment on above: Performed By: #### C BC #### [facility] [address] [place] [address] Dr. Kaushik Palomares FREE T4on 12-31-2022 Free T4 [Mass/Vol] 0.79 ng/dL Normal 0.76-1.46 [facility] Comment on above: Performed By: #### F T4 #### [facility] [address] [place] [address] Dr. Kaushik Palomares GLYCOHEMOGLOBIN A1Con 2022 ADA RECOMMENDATION SEE BELOW Normal [facility] Comment on above: Result Comment: ADA RECOMMENDED LIMIT 4.0 - 6.0 ADA THERAPEUTIC TARGET < 7.0 ACTION SUGGESTED > 7.0 Performed By: #### A 1C #### [facility] [address] [place], [place] [address] Dr. Kaushik Palomares Glucose [Mass/Vol] 111 mg/dL Normal [facility] [place] [facility] Comment on above: Performed By: #### A 1C #### [facility] [address] [place], [place] [address] Dr. Kaushik Palomares HbA1c (Bld) [Mass fraction] 5.5 % Normal 4.5-6.2 [facility] Comment on above: Performed By: #### A 1C #### [facility] [address] [place], [place] [address] Dr. Kaushik Palomares TSHon 12-31-2022 TSH 1.114 uIU/mL Normal 0.358-3.[address] [facility] Comment on above: Performed By: #### C BC #### [facility] [address] [place], [place] [address] Dr. Kaushik Palomares US PELVIS AND TRANSVAGon [...] by: SUGEY MACDONALD Date: 2022-11-26 15:58 Normal [facility] XR SACRUM_COCCYXon 3 XR SACRUM_COCCYX EXAMINATION: XR [...] by: SUGEY MACDONALD Date: 2022-11-08 10:01 Normal [facility] PAP ACOG PANEL 2: 30 to 65on 11-05-2022 . . Normal [facility] Comment on above: Result Comment: Perf ormed at: WB Performed By: #### C BC #### [facility] [address] [place] [address] [address] Kaushik Palomares Age Gdln ACOG Testing 30-65 Normal [facility] Comment on above: Performed By: #### C BC #### [facility] [address] [place] [address] [address] Kaushik Palomares DIAGNOSIS: Comment Normal [facility] Comment on above: Result Comment: NEGA TIVE FOR INTRAEPITHELIAL LESION OR MALIGNANCY. Performed at: WB Performed By: #### C BC #### [facility] [address] [place] [address] [address] Kaushik Palomares HPV Aptima Negative Normal Negative [facility] Comment on above: Result Comment: This nucleic acid amplification test detects fourteen high-risk HPV types (16,18,31,33,35,39,45,51,52,56,58,59,66,68) without differentiation. Performed at: =G Performed By: #### C BC #### [facility] [address] [place] [address] [address] Kaushik Palomares HPV Genotype Reflex Comment Normal [facility] Comment on above: Result Comment: Crit eria not met, HPV Genotype not performed. Performed at: WB Performed By: #### C BC #### [facility] [address] [place] [address] [address] Kuashik Palomares Methodology: Comment Normal [facility] Comment on above: Result Comment: This liquid based ThinPrep(R) pap test was screened with the use of an image guided system. Performed at: WB Performed By: #### C BC #### [facility] [address] [place] [address] [address] Kaushik Palomares Note: Comment Normal [facility] Comment on above: Result Comment: The [...] WB Performed By: #### C BC #### [facility] [address] [place] [address] [address] Kaushik Palomares Performed by: Comment Normal [facility] Comment on above: Result Comment: Robi Graham, Driver Guard (ASCP) Performed at: WB Performed By: #### C BC #### [facility] [address] [place] [address] [address] Kaushik Palomares Specimen adequacy: Comment Normal [facility] [place] [facility] Comment on above: Result Comment: Sati sfactory for evaluation. Endocervical and/or squamous metaplastic cells (endocervical component) are present. Performed at: WB Performed By: #### C BC #### [facility] [address] [place] [address] Dr. Kaushik Palomares COVID/FLU RT-PCRon 2 SARS-CoV-2 (COVID-19) RNA SURI+probe Ql (Unsp spec) Negative [employer] Other COVID/FLU RT-PCR Negative [employer] Other HCG-BETA SUBUNIT QUANTon hCG,Beta Subunit,Qnt,Serum <1 Normal [facility] Comment on above: Result Comment: Fema le (Non-) 0 - 5 (Postmenopausal) 0 - 8 . Female () Weeks of Gestation 3 6 - 71 4 10 - 750 5 217 - 3614 6 761 - 97114 7 2106 -[phone] 8 09652 -[phone] 9 [phone] -[phone] 10 59927 -407037 12 69691 -954759 14 03048 - 53172 15 64568 - 33669 16 3472 - 33807 17 6305 - 58629 18 8312 - 37742 Rg ECLIA methodology Performed By: #### H CGSUB #### [facility] [address] [place] [address] Dr. Kaushik Palomares T4 LABCORPon 01-22-2022 T4 [Mass/Vol] 7.8 ug/dL Normal 4.5-12.[address] [facility] Comment on above: Performed By: #### T 4LC #### [facility] [address] [place] [address] Dr. Kaushik Palomares CBC AUTO DIFFon 01-21-2022 BASO # 0.1 103/ul Normal 0.0-0.1 [facility] Comment on above: Performed By: #### C BC #### [facility] [address] [place] [address] Dr. Kaushik Palomares Basophils/100 WBC (Bld) 0.6 % Normal 0.2-2.0 [facility] Comment on above: Performed By: #### C BC #### [facility] [address] [place] [address] Dr. Kaushik Palomares EO # 0.1 103/ul Normal 0.0-0.7 [facility] Comment on above: Performed By: #### C BC #### [facility] [address] [place] [address] Dr. Kaushik Palomares Eosinophils/100 WBC (Bld) 1.2 % Normal 0.9-7.0 [facility] Comment on above: Performed By: #### C BC #### [facility] [address] [place] [address] Dr. Kaushik Palomares Erythrocyte distribution width (RBC) [Ratio] 13.3 % Normal 11.0-15.0 [facility] Comment on above: Performed By: #### C BC #### [facility] [address] [place] [address] Dr. Kaushik Palomares Hematocrit (Bld) [Volume fraction] 40.0 % Normal 36.0-48.0 [facility] Comment on above: Performed By: #### C BC #### [facility] [address] [place] [address] Dr. Kaushik Palomares Hemoglobin (Bld) [Mass/Vol] 12.7 g/dL Normal 12.0-16.0 [facility] Comment on above: Performed By: #### C BC #### [facility] [address] [place] [address] Dr. Kaushik Palomares IG # 0.02 10e3/ul Normal 0.00-0.03 [facility] Comment on above: Performed By: #### C BC #### [facility] [address] [place] [address] Dr. Kaushik Palomares IG % 0.2 % Normal 0.0-0.5 [facility] Comment on above: Performed By: #### C BC #### [facility] [address] [place] [address] Dr. Kaushik Palomares LYMPH # 3.0 103/ul Normal 1.2-3.8 [facility] Comment on above: Performed By: #### C BC #### [facility] [address] [place] [address] Dr. Kaushik Palomares Lymphocytes/100 WBC (Bld) 32.9 % Normal 20.5-60.0 [facility] Comment on above: Performed By: #### C BC #### [facility] [address] [place] [address] Dr. Kaushik Palomares MANUAL DIFF REQ NO Normal [facility] Comment on above: Performed By: #### C BC #### [facility] [address] [place] [address] Dr. Kaushik Palomares MCH (RBC) [Entitic mass] 28.5 pg Normal 26.7-34.0 [facility] Comment on above: Performed By: #### C BC #### [facility] [address] [place] [address] Dr. Kaushik Palomares MCHC (RBC) [Mass/Vol] 31.8 g/dL Normal 29.9-35.2 [facility] Comment on above: Performed By: #### C BC #### [facility] [address] [place] [address] Dr. Kaushik Palomares MCV (RBC) [Entitic vol] 89.7 fL Normal 81.0-99.0 [facility] Comment on above: Performed By: #### C BC #### [facility] [address] [place] [address] [address] Kaushik Palomares MONO # 0.5 103/ul Normal 0.3-0.8 [facility] Comment on above: Performed By: #### C BC #### [facility] [address] [place] [address] Dr. Kaushik Palomares Monocytes/100 WBC (Bld) 5.1 % Normal 1.7-12.0 [facility] Comment on above: Performed By: #### C BC #### [facility] [address] [place] [address] Dr. Kaushik Palomares NEUT # 5.4 103/ul Normal 1.4-6.5 [facility] Comment on above: Performed By: #### C BC #### [facility] [address] [place] [address] Dr. Kaushik Palomares Neutrophils/100 WBC (Bld) 60.0 % Normal 43.0-75.0 [facility] Comment on above: Performed By: #### C BC #### [facility] [address] [place] [address] Dr. Kaushik Palomares Platelet mean volume (Bld) [Entitic vol] 9.3 fL Critically low 9.5-13.5 [facility] Comment on above: Performed By: #### C BC #### [facility] [address] [place] [address] Dr. Kaushik Palomares PLT 221 103/ul Normal 150-450 [facility] Comment on above: Performed By: #### C BC #### [facility] [address] [place] [address] Dr. Kaushik Palomares RBC 4.46 106/ul Normal 4.20-5.40 [facility] Comment on above: Performed By: #### C BC #### [facility] [address] [address] [address] Kaushik Palomares WBC 9.0 103/ul Normal 4.0-11.0 [facility] Comment on above: Performed By: #### C BC #### [facility] [address] [address] [address] Kaushik Palomares GLYCOHEMOGLOBIN A1Con 2021 ADA RECOMMENDATION SEE BELOW Normal [facility] Comment on above: Result Comment: ADA RECOMMENDED LIMIT 4.0 - 6.0 ADA THERAPEUTIC TARGET < 7.0 ACTION SUGGESTED > 7.0 Performed By: #### C BC #### [facility] [address] [place] [address] Dr. aKushik Palomares Glucose [Mass/Vol] 94 mg/dL Normal [facility] Comment on above: Performed By: #### C BC #### [facility] [address] [place] [address] Dr. Kaushik Palomares HbA1c (Bld) [Mass fraction] 4.9 % Normal 4.5-6.2 [facility] Comment on above: Performed By: #### C BC #### [facility] [address] [place] [address] Dr. Kaushik Palomares LIPID PROFILEon 01-21-2022 CHOL-HDL RATIO NORM SEE BELOW Normal [facility] Comment on above: Result Comment: 3.3 - 4.4 LOW RISK 4.4 - 7.1 AVERAGE RISK 7.1 - 11.0 MODERATE RISK >11.0 HIGH RISK Performed By: #### L IPID, CMP, TSH #### [facility] [address] [address] [address] Kaushik Palomares Cholesterol [Mass/Vol] 168 mg/dL Normal <=200 [facility] Comment on above: Performed By: #### L IPID, CMP, TSH #### [facility] [address] [address] [address] Kaushik Palomares Cholesterol in HDL [Mass/Vol] 41 mg/dL Normal 40-60 [facility] Comment on above: Performed By: #### L IPID, CMP, TSH #### [facility] [address] [address] [address] Kaushik Palomares Cholesterol in LDL [Mass/Vol] 90.2 mg/dL Normal [facility] Comment on above: Performed By: #### L IPID, CMP, TSH #### [facility] [address] [address] [address] Kaushik Palomares Cholesterol.total/Mali sterol in HDL [Mass ratio] 4.1 {ratio} Normal [facility] Comment on above: Performed By: #### L IPID, CMP, TSH #### [facility] [address] [address] [address] Kaushik Palomares HDL NORMAL > or = 60 mg/dl - LO W CARDIOVASCULAR RISK <40 mg/dl - HIGH CARDIOVASCULAR RISK Normal [facility] Comment on above: Performed By: #### L IPID, CMP, TSH #### [facility] [address] [address] [address] Kaushik Palomares LDL CALC NORMAL SEE BELOW Normal [facility] Comment on above: Result Comment: <100 mg/dl OPTIMAL 100 - 129 mg/dl NEAR OR ABOVE OPTIMAL 130 - 159 mg/dl BORDERLINE HIGH 160 - 189 mg/dl HIGH >190 mg/dl VERY HIGH Performed By: #### L IPID, CMP, TSH #### [facility] [address] [address] [address] Kaushik Palomares Triglyceride [Mass/Vol] 184 mg/dL Critically high <=150 [facility] Comment on above: Performed By: #### L IPID, CMP, TSH #### [facility] [address] [address] [address] Kaushik Palomares VLDL CALC 36.8 mg/dL Normal [facility] Comment on above: Performed By: #### L IPID, CMP, TSH #### [facility] [address] [address] [address] Kaushik Palomares MICROALBUMIN, RAND URon 06-0 mALB 2.0 mg/L Normal <=30.0 [facility] Comment on above: Performed By: #### C BC #### [facility] [address] [place] [address] Dr. Kaushik Palomares PROF 14(COMP METB)on 022 Albumin [Mass/Vol] 3.7 g/dL Normal 3.4-5.0 [facility] Comment on above: Performed By: #### L IPID, CMP, TSH #### [facility] [address] [place] [address] Dr. Kaushik Palomares Albumin/Globulin [Mass ratio] 0.9 {ratio} Normal [facility] Comment on above: Performed By: #### L IPID, CMP, TSH #### [facility] [address] [place] [address] Dr. Kaushik Palomares ALP [Catalytic activity/Vol] 53 U/L Normal 46-116 [facility] Comment on above: Performed By: #### L IPID, CMP, TSH #### [facility] [address] [place] [address] Dr. Kaushik Palomares ALT [Catalytic activity/Vol] 44 U/L Normal 14-59 [facility] Comment on above: Performed By: #### L IPID, CMP, TSH #### [facility] [address] [place] [address] Dr. Kaushik Palomares Anion gap [Moles/Vol] 6.8 mmol/L Normal [facility] Comment on above: Performed By: #### L IPID, CMP, TSH #### [facility] [address] [place] [address] Dr. Kaushik Palomares AST [Catalytic activity/Vol] 22 U/L Normal 15-37 [facility] Comment on above: Performed By: #### L IPID, CMP, TSH #### [facility] [address] [place] [address] Dr. Kaushik Palomares Bilirubin [Mass/Vol] 0.3 mg/dL Normal 0.2-1.0 [facility] Comment on above: Performed By: #### L IPID, CMP, TSH #### [facility] [address] [place] [address] Dr. Kaushik Palomares Calcium [Mass/Vol] 9.2 mg/dL Normal 8.5-10.1 [facility] Comment on above: Performed By: #### L IPID, CMP, TSH #### [facility] [address] [address] [address] Kaushik Palomares Chloride [Moles/Vol] 102 mmol/L Normal 98-107 [facility] Comment on above: Performed By: #### L IPID, CMP, TSH #### [facility] [address] [address] [address] Kaushik Palomares CO2 [Moles/Vol] 31.4 mmol/L Normal 21.0-32.0 [facility] Comment on above: Performed By: #### L IPID, CMP, TSH #### [facility] [address] [place] [address] Dr. Kaushik Palomares Creatinine [Mass/Vol] 0.71 mg/dL Normal 0.55-1.02 [facility] Comment on above: Performed By: #### L IPID, CMP, TSH #### [facility] [address] [place] [address] Dr. Kaushik Palomares EGFR-AF MONEGASQUE >60 Normal >=60 [facility] Comment on above: Performed By: #### L IPID, CMP, TSH #### [facility] [address] [place] [address] Dr. Kaushik Palomares EGFR-NON AF MONEGASQUE >60 Normal >=60 [facility] Comment on above: Performed By: #### L IPID, CMP, TSH #### [facility] [address] [place] [address] Dr. Kaushik Palomares Globulin (S) [Mass/Vol] 4.2 g/dL Normal [facility] Comment on above: Performed By: #### L IPID, CMP, TSH #### [facility] [address] [place] [address] Dr. Kaushik Palomares Glucose [Mass/Vol] 93 mg/dL Normal 74-106 [facility] Comment on above: Performed By: #### L IPID, CMP, TSH #### [facility] [address] [address] [address] Kaushik Palomares Potassium [Moles/Vol] 4.2 mmol/L Normal 3.5-5.1 [facility] Comment on above: Performed By: #### L IPID, CMP, TSH #### [facility] [address] [place] [address] Dr. Kaushik Palomares Protein [Mass/Vol] 7.9 g/dL Normal 6.4-8.2 [facility] Comment on above: Performed By: #### L IPID, CMP, TSH #### [facility] [address] [place] [address] Dr. Kaushik Palomares Sodium [Moles/Vol] 136 mmol/L Normal 136-145 [facility] Comment on above: Performed By: #### L IPID, CMP, TSH #### [facility] [address] [place] [address] Dr. Kaushik Palomares Urea nitrogen [Mass/Vol] 11.0 mg/dL Normal 7.0-18.0 [facility] Comment on above: Performed By: #### L IPID, CMP, TSH #### [facility] [address] [place] [address] Dr. Kaushik Palomares Urea nitrogen/Creatinine [Mass ratio] 15.5 mg/mg Normal [facility] Comment on above: Performed By: #### L IPID, CMP, TSH #### [facility] [address] [place] [address] Dr. Kaushik Palomares TSHon 01-21-2022 TSH 1.298 uIU/mL Normal 0.358-3.740 [facility] Comment on above: Performed By: #### C BC #### [facility] [address] [place] [address] Dr. Kaushik Palomares TSH RANGE SEE BELOW Normal [facility] Comment on above: Result Comment: <0.3 4 UIU/ml HYPERTHYROID 0.34-5.60 UIU/ml EUTHYROID >5.60 UIU/ml HYPOTHYROID Performed By: #### C BC #### [facility] [address] [place] [address] Dr. Yilan Palomares COVID Quick Testingon 2020 Result Negative [employer] Other Quick Strepon 06-17-2021 S. pyogenes Org specific cx Ql (Throat) Negative [employer] Other Quick Strep [employer] Other Urinalysis - AUTOMATEDon Appearance (U) cloudy [employer] Other Bilirubin Ql (U) Negative [employer] Other Color (U) yellow [employer] Other Glucose Ql (U) Negative [employer] Other Hemoglobin Ql (U) large [employer] Other Ketones Ql (U) Negative [employer] Other Leukocyte esterase Test strip Ql (U) trace [employer] Other Nitrite Ql (U) Positive [employer] Other pH (U) 5.5 [pH] [employer] Other Protein Ql (U) 100 [employer] Other Specific gravity (U) [Rel density] 1.025 [employer] Other Urobilinogen (U) [Mass/Vol] 0.2 mg/dL [employer] Other Urinalysis - AUTOMATED No [email or web address] Other Urine Cultureon 05-31-2021 Urine Culture >100,000 [employer] Other Urine Culture <16 [employer] Other Urine Culture >16 [employer] Other Urine Culture <4 [employer] Other Urine Culture 8 [employer] Other Urine Culture <2 [employer] Other Urine Culture <1 [employer] Other Urine Culture >2 [employer] Other Urine Culture <0.5 [employer] Other Urine Culture >8 [employer] Other Urine Culture >4 [employer] Other Urine Culture <32 [employer] Other Urine Culture >2/38 [employer] Other Vital Signs Date Time Vital Sign Value 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 08-19-2023 09:45-0500 Body height 162.56 cm Nely Luis Antoniohari Other [employer] Other 08-13-2023 14:00-0500 Body height 162.56 cm Manisha Marc Other [employer] Other 08-13-2023 14:00-0500 Body mass index (BMI) [Ratio] 52.35 kg/m2 Manisha Marc Other [employer] Other 08-13-2023 14:00-0500 Body weight 138.35 kg Manisha Marc Other [employer] Other 08-13-2023 14:00-0500 Diastolic blood pressure 80 mm[Hg] Manisha Marc Other [employer] Other 08-13-2023 14:00-0500 SaO2% (BldA) [Mass fraction] 98 % Manisha Marc Other [employer] Other 08-13-2023 14:00-0500 Systolic blood pressure 114 mm[Hg] Manisha Tari Other [employer] Other 07-15-2023 07:45-0500 Body height 162.56 cm Celio Mullins Other [employer] Other 07-15-2023 07:45-0500 Body mass index (BMI) [Ratio] 52.98 kg/m2 Celio Mullins Other [employer] Other 07-15-2023 07:45-0500 Body weight 140.03 kg Celio Mullins Other [employer] Other 07-15-2023 07:45-0500 Diastolic blood pressure 66 mm[Hg] Celio Mullins Other [employer] Other 07-15-2023 07:45-0500 Respiratory rate 18 /min Celio Mullins Other [employer] Other 07-15-2023 07:45-0500 SaO2% (BldA) [Mass fraction] 98 % Celio Mulilns Other [employer] Other 07-15-2023 07:45-0500 Systolic blood pressure 112 mm[Hg] Celio Mullins Other [employer] Other 07-07-2023 11:15-0500 Body height 162.56 cm Michelle Ernandez Other [employer] Other 07-07-2023 11:15-0500 Body mass index (BMI) [Ratio] 52.69 kg/m2 Michelle Ernandez Other [employer] Other 07-07-2023 11:15-0500 Body temperature 98 [degF] Michelle Oma Other [employer] Other 07-07-2023 11:15-0500 Body weight 139.26 kg Michelle Oma Other [employer] Other 07-07-2023 11:15-0500 Respiratory rate 20 /min Michelle Oma Other [employer] Other 07-07-2023 11:15-0500 SaO2% (BldA) [Mass fraction] 98 % Michelle Oma Other [employer] Other 06-29-2023 10:20-0500 Body height 162.56 cm Michelle Oma Other [employer] Other 06-29-2023 10:20-0500 Body mass index (BMI) [Ratio] 53.03 kg/m2 Michelle Oma Other [employer] Other 06-29-2023 10:20-0500 Body temperature 99.7 [degF] Michelle Oma Other [employer] Other 06-29-2023 10:20-0500 Body weight 140.16 kg Michelle Oma Other [employer] Other 06-29-2023 10:20-0500 Respiratory rate 19 /min Michelle Oma Other [employer] Other 06-29-2023 10:20-0500 SaO2% (BldA) [Mass fraction] 98 % Michelle Oma Other [employer] Other 06-11-2023 15:30-0400 Body height 162.56 cm Manisha Barclayfani Other [employer] Other 06-11-2023 15:30-0400 Body mass index (BMI) [Ratio] 53.79 kg/m2 Manisha Tari Other [employer] Other 06-11-2023 15:30-0400 Body weight 142.16 kg Manisha Tari Other [employer] Other 06-11-2023 15:30-0400 Diastolic blood pressure 62 mm[Hg] Manisha Tari Other [employer] Other 06-11-2023 15:30-0400 SaO2% (BldA) [Mass fraction] 99 % Manisha Tari Other [employer] Other 06-11-2023 15:30-0400 Systolic blood pressure 126 mm[Hg] Manisha Tari Other [employer] Other 05-06-2023 13:40-0400 Body height 162.56 cm Casandra Hassan Other [employer] Other 05-06-2023 13:40-0400 Body mass index (BMI) [Ratio] 53.65 kg/m2 Casandra Hassan Other [employer] Other 05-06-2023 13:40-0400 Body temperature 98.4 [degF] Casandra Hassan Other [employer] Other 05-06-2023 13:40-0400 Body weight 141.8 kg Casandra Sonya Other [employer] Other 05-06-2023 13:40-0400 Diastolic blood pressure 81 mm[Hg] Casandra Tesfayeley Other [employer] Other 05-06-2023 13:40-0400 Respiratory rate 18 /min Casandra Tesfayeley Other [employer] Other 05-06-2023 13:40-0400 SaO2% (BldA) [Mass fraction] 95 % Casandra Tesfayeley Other [employer] Other 05-06-2023 13:40-0400 Systolic blood pressure 134 mm[Hg] Casandra Hassan Other [employer] Other 04-30-2023 08:30-0400 Body height 162.56 cm Manisha Marc Other [employer] Other 04-30-2023 08:30-0400 Body mass index (BMI) [Ratio] 53.86 kg/m2 Manisha Marc Other [employer] Other 04-30-2023 08:30-0400 Body weight 142.34 kg Manisha Marc Other [employer] Other 04-30-2023 08:30-0400 Diastolic blood pressure 82 mm[Hg] Manisha Marc Other [employer] Other 04-30-2023 08:30-0400 SaO2% (BldA) [Mass fraction] 100 % Manisha Marc Other [employer] Other 04-30-2023 08:30-0400 Systolic blood pressure 120 mm[Hg] Manisha Tari Other [employer] Other 04-29-2023 07:00-0400 Body height 162.[address] [employer] Other [employer] Other 04-29-2023 07:00-0400 Body mass index (BMI) [Ratio] 54.41 kg/m2 Dr[employer] Other [employer] Other 04-29-2023 07:00-0400 Body weight 143.[address] Other [employer] Other 03-25-2023 13:45-0400 Body height 162.56 cm [employer] Other [employer] Other 03-25-2023 13:45-0400 Body mass index (BMI) [Ratio] 55.45 kg/m2 [employer] Other [employer] Other 03-25-2023 13:45-0400 Body weight 146.56 kg [employer] Other [employer] Other 03-25-2023 13:45-0400 Diastolic blood pressure 57 mm[Hg] [employer] Other [employer] Other 03-25-2023 13:45-0400 Respiratory rate 18 /min [employer] Other [employer] Other 03-25-2023 13:45-0400 SaO2% (BldA) [Mass fraction] 97 % [employer] Other [employer] Other 03-25-2023 13:45-0400 Systolic blood pressure 106 mm[Hg] Celio Mullins Other [employer] Other 02-11-2023 12:15-0400 Body height 163.83 cm Casandra Hassan Other [employer] Other 02-11-2023 12:15-0400 Body mass index (BMI) [Ratio] 54.88 kg/m2 Casandra Hassan Other [employer] Other 02-11-2023 12:15-0400 Body temperature 98 [degF] Casandra Hassan Other [employer] Other 02-11-2023 12:15-0400 Body weight 147.33 kg Casandra Hassan Other [employer] Other 02-11-2023 12:15-0400 Diastolic blood pressure 85 mm[Hg] Casandra Hassan Other [employer] Other 02-11-2023 12:15-0400 Respiratory rate 18 /min Casandra Hassan Other [employer] Other 02-11-2023 12:15-0400 SaO2% (BldA) [Mass fraction] 98 % Casandra Hassan Other [employer] Other 02-11-2023 12:15-0400 Systolic blood pressure 128 mm[Hg] Casandra Hassan Other [employer] Other 07-13-2022 11:15-0500 Body height 163.83 cm Michelle Ernandez Other [employer] Other 07-13-2022 11:15-0500 Body mass index (BMI) [Ratio] 51.54 kg/m2 Michelle Haynesmond Other [employer] Other 07-13-2022 11:15-0500 Body temperature 96.6 [degF] Michelle Oma Other [employer] Other 07-13-2022 11:15-0500 Body weight 138.35 kg Michelle Oma Other [employer] Other 07-13-2022 11:15-0500 Respiratory rate 18 /min Michelle Oma Other [employer] Other 07-13-2022 11:15-0500 SaO2% (BldA) [Mass fraction] 96 % Michelle Oma Other [employer] Other 07-06-2021 13:00-0500 Body height 163.83 cm Michelle Oma Other [employer] Other 07-06-2021 13:00-0500 Body mass index (BMI) [Ratio] 49 kg/m2 Michelle Oma Other [employer] Other 07-06-2021 13:00-0500 Body temperature 97.5 [degF] Michelle Oma Other [employer] Other 07-06-2021 13:00-0500 Body weight 131.54 kg Michelle Oma Other [employer] Other 07-06-2021 13:00-0500 SaO2% (BldA) [Mass fraction] 96 % Michelle Oma Other [employer] Other 06-17-2021 11:00-0400 Body height 163.83 cm Michelle Oma Other [employer] Other 06-17-2021 11:00-0400 Body mass index (BMI) [Ratio] 49.68 kg/m2 Michelle Oma Other [employer] Other 06-17-2021 11:00-0400 Body temperature 98.3 [degF] Michelle Oma Other [employer] Other 06-17-2021 11:00-0400 Body weight 133.36 kg Michelle Oma Other [employer] Other 06-17-2021 11:00-0400 Respiratory rate 18 /min Michelle Oma Other [employer] Other 06-17-2021 11:00-0400 SaO2% (BldA) [Mass fraction] 96 % Michelle Oma Other [employer] Other 05-31-2021 13:50-0400 Body height 163.83 cm Michelle Oma Other [employer] Other 05-31-2021 13:50-0400 Body mass index (BMI) [Ratio] 50.36 kg/m2 Michelle Oma Other [employer] Other 05-31-2021 13:50-0400 Body temperature 97.8 [degF] Michelle Oma Other [employer] Other 05-31-2021 13:50-0400 Body weight 135.17 kg Michelle Ernandez Other [employer] Other 05-31-2021 13:50-0400 Diastolic blood pressure 90 mm[Hg] Michelle Ernandez Other [employer] Other 05-31-2021 13:50-0400 Respiratory rate 18 /min Michelle Haynesmond Other [employer] Other 05-31-2021 13:50-0400 SaO2% (BldA) [Mass fraction] 98 % Michelle Haynesmond Other [employer] Other 05-31-2021 13:50-0400 Systolic blood pressure 150 mm[Hg] Michelle Haynesmond Other [employer] Other Encounters Encounter Date Encounter Type Care Provider Facility Start: 08-19-2023 IBT FOR OBESITY GROU P 2-10 30M Nely Cruz [facility] Start: 08-19-2023 End: 08-19-2023 ambulatory Manisha Marc [facility] [employer] Other Start: 08-19-2023 Registered Recurring ROSITA Marc Work Phone: [facility] Work Phone: Start: 08-13-2023 End: 08-13-2023 ambulatory Manisha Marc Other [employer] Other Start: 08-13-2023 Office outpatient vi sit 15 minutes Manisha Marc [facility] Start: 07-24-2023 End: 07-24-2023 ambulatory MELA ANDERSON Not Available Start: 07-21-2023 End: 07-22-2023 ambulatory Bud Combs MD Facility:[facility] Start: 07-19-2023 End: 07-19-2023 ambulatory Manisha Marc Facility:[facility] Start: 07-19-2023 End: 07-19-2023 ambulatory ROSITA Marc Work Phone: [facility] Work Phone: Start: 07-19-2023 End: 07-19-2023 Patient encounter procedure AIRCRAFT MAINTENANCE INSTRUCTORBryon Marc Work Phone: [facility] Start: 07-15-2023 End: 07-15-2023 ambulatory Celio Mullins Other [employer] Other Start: 07-15-2023 Follow-up encounter Celio Mullins [facility] Start: 07-07-2023 End: 07-07-2023 ambulatory Michelle Ernandez Other [employer] Other Start: 07-07-2023 Office outpatient vi sit 15 minutes Michelle Ernandez [facility] Start: 07-03-2023 End: 07-03-2023 ambulatory Manisha Marc Facility:[facility] Start: 07-03-2023 End: 07-03-2023 ambulatory ROSITA Marc Work Phone: [facility] Work Phone: Start: 07-03-2023 End: 07-03-2023 Patient encounter procedure ROSITA Marc Work Phone: [facility] [place] Work Phone: Start: 07-01-2023 End: 07-01-2023 ambulatory Manisha Marc Facility:[facility] Start: 07-01-2023 End: 07-01-2023 Patient encounter procedure AIRCRAFT MAINTENANCE INSTRUCTORBryon Marc Work Phone: [facility] [place] Work Phone: Start: 06-29-2023 End: 06-29-2023 ambulatory Michelle Ernandez Other [employer] Other Start: 06-29-2023 Office outpatient vi sit 15 minutes Michelle Haynesmond [facility] Start: 06-17-2023 Registered Recurring AIRCRAFT MAINTENANCE INSTRUCTOR Layla Marc Work Phone: [facility] Work Phone: Start: 06-11-2023 End: 06-11-2023 ambulatory Manisha Marc Other [employer] Other Start: 06-11-2023 Office outpatient vi sit 25 minutes Manisha Marc [facility] Start: 06-05-2023 ambulatory Manisha Marc Fac ility:[facility] Start: 05-06-2023 End: 05-06-2023 ambulatory Casandra Hassan Other [employer] Other Start: 05-06-2023 Office outpatient vi sit 10 minutes Casandra Hassan [facility] Start: 05-01-2023 End: 05-01-2023 ambulatory Manisha Marc Other [employer] Other Start: 05-01-2023 Telephone encounter Manisha Rico her [facility] Start: 04-30-2023 End: 04-30-2023 ambulatory Manisha Marc Other [employer] Other Start: 04-30-2023 Encounter for genera l adult medical examination without abnormal findings Manisha Marc [facility] Start: 04-30-2023 Periodic preventive med est patient 18-39 yrs Manisha Marc [facility] Start: 04-29-2023 ([facility]) [facility] Init ial Provider Nely Luis Antoniohari [facility] Start: 04-29-2023 End: 04-29-2023 ambulatory Nely Cruz Other [employer] Other Start: 03-25-2023 End: 03-25-2023 ambulatory Celio Mullins Other [employer] Other Start: 03-25-2023 Nutrition therapy Celio Manzo [facility] Start: 03-25-2023 Telephone encounter Celio Owens [facility] Start: 03-14-2023 End: 03-14-2023 ambulatory Nely Cruz Other [employer] Other Start: 03-14-2023 Telephone encounter Nelybryon Salmonhari [facility] Start: 02-11-2023 End: 02-11-2023 ambulatory Casandra Hassan Other [employer] Other Start: 02-11-2023 Office outpatient vi sit 15 minutes Casandra Hassan [facility] Start: 12-31-2022 End: 01-01-[address] TOBIAS OSCAR . Facility:[facility] Start: 11-26-2022 End: 11-27-[address] TOBIAS OSCAR . Facility:[facility] Start: 11-08-2022 End: 11-09-[address] BOOM ROD Facility:[facility] Start: 10-28-2022 End: 10-28-[address] TOBIAS OSCAR . Facility:[facility] Start: 07-13-2022 End: 07-13-2022 ambulatory Michelle Ernandez Other [employer] Other Start: 07-13-2022 Office outpatient vi sit 15 minutes Michelle Ernandez [facility] Start: 03-07-2022 End: 03-08-[address] BOOM ROD Facility:[facility] Start: 01-25-2022 Encounter for genera l adult medical examination without abnormal findings DR BOOM ROD [facility] Start: 01-21-2022 End: 01-22-[address] BOOM ROD Facility:[facility] Start: 01-21-2022 End: 01-22-2022 Encounter for general adult medical examination without abnormal findings DR BOOM ROD Facility:[facility] Start: 07-06-2021 End: 07-06-2021 ambulatory Michelle Oma Other [employer] Other Start: 07-06-2021 Office outpatient vi sit 15 minutes Michelle Oma [facility] Start: 06-17-2021 Office outpatient vi sit 15 minutes Michelle Oma [facility] Start: 05-31-2021 Office outpatient vi sit 25 minutes Michelle Oma [facility] Start: 08-27-2018 End: 08-27-2018 ambulatory BRENT KINNEY Facility:[facility] Procedures Date Procedure Procedure Detail Performing [...] not use COVID-19 Pfizer 2 dose Manisha Denyrbacher Other [employer] Other 02-10-2021 Do not use COVID-19 Pfizer 2 dose Manisha Rohrbacher Other [employer] Other 08-03-2018 Toradol per 15 mg Michelle Dym ond Other [employer] Other Payers Date Payer Category Payer Self-pay [id number] 2022 Self-pay [id number] 2022 Private Health Insurance 1991 Unknown [id number] [id number]. 732 1991 Unknown [id number] 2.16.840.1.807995.3.579.2. 593 1991 Unknown [id number] 2.16.840.1.570557.3.579.2. 593 1991 Unknown [id number] 2.16.840.1.504124.3.579.2. 593 1991 Unknown [id number] 2.16.840.1.263586.3.579.2. 593 1991 Unknown [id number] 2.16.840.1.354641.3.579.2. 593 1991 Unknown [id number] 2.16.840.1.151254.3.579.2. 593 1991 Unknown [id number] 2.16.840.1.137402.3.579.2. 1259 1991 Unknown [id number] 2.16.840.1.715061.3.579.2. 196 1959 Medicaid [id number] 1959 Unknown [id number] Unknown [facility] [id number] Unknown [id number] 2.16.840.1.443725.3.579.2. 531 Unknown [id number] 2.16.840.1.359836.3.579.2. 531 Unknown [id number] 2.16.840.1.302707.3.579.2. 531 Unknown [id number] 2.16.840.1.144789.3.579.2. 531 Unknown [id number] 2.16.840.1.261347.3.579.2. 531 Social History Date Type Detail Facility Unknown if ever smoked [employer] Other Sex Assigned At Sex Assigned At Bir th [employer] Other Start: 12-07-2021 Tobacco smoking status NHIS Never smoked tobacco (finding) [facility] Start: 1990 Sex Assigned At Female F [facility] Clinical Notes 05-31-2021 to 08-19-2023 Note Date [...] method for meal planning ; grocery shortcuts [employer] [facility] [employer] Other 12-27-2023 Evaluation note* Encounter Date Diagnosis [...] You have been given relevant education handouts. [employer] Other 11-28-2023 Evaluation note* Encounter Date Diagnosis [...] voice recognition software. Please excuse errors in transformation coach. Jun, Dietary surveillance and counseling (ICD-10 - [...] metformin 1000 mg total daily, managed by CATERING MANAGER Jun, Asthma (ICD-10 - J45.909) Jun, Migraine (ICD-10 - G43.909) Jun, Primary hypertension (ICD-10 - I10) Currently on pharmacotherapy Potential for overtreatment given lightheadedness Jun, Other An additional 9 minutes was spent counseling the patient on behavior modification including proper nutrition and physical activity. [employer] Other 11-20-2023 Evaluation note* Encounter Date Diagnosis [...] until you feel better. You may take [id number] Imodium for diarrhea as needed. Avoid dairy foods as well as greasy fried foods. Follow-up with your physician if no improvement in 2 to 3 days. May return to work on Jun, Diarrhea, unspecified type (ICD-10 - R19.7) Diarrhea: adult home care material was printed [employer] Other 11-12-2023 Evaluation note* Encounter Date Diagnosis [...] to 3-day Jun, Bronchitis (ICD-10 - J40) [employer] Other 10-25-2023 Evaluation note* Encounter Date Diagnosis Assessment Notes Treatment Notes Treatment Clinical Notes May, Degenerative lumbar disc (ICD-10 - M51.36) L4-5 Pt would like a referral to pain management regarding her chronic back pain. Her last x-ray of the lumbar spine was completed 10/2022 at [facility]--reviewed and in scanned documents. Referral placed. May, [...] disorder (ICD-10 - F31.81) Referral placed to [facility] for medication mangement. [employer] Other 09-19-2023 Evaluation note* Encounter Date Diagnosis Assessment Notes Treatment Notes Treatment Clinical Notes Apr, Exposure to head lice (ICD-10 - Z20.7) Discussed with patient exam is without any signs of current lice infection. May return to work tomorrow. Patient completed next treatment yesterday. Patient verbalized understanding. [employer] Other 09-14-2023 Evaluation note* Encounter Date Diagnosis Assessment Notes Treatment Notes Treatment Clinical Notes Apr, Primary hypertension (ICD-10 - I10) [employer] Other 09-13-2023 Evaluation note* Encounter Date Diagnosis [...] (ICD-10 - R73.01) Will obtain records from [facility] for most recent labs. Patient is [...] Low back pain, unspecified (ICD-10 - M54.50) [employer] Other 09-12-2023 Evaluation note* Encounter Date Diagnosis [...] 2) Aim for < 45 g carb/meal [employer] Other 08-08-2023 Evaluation note* Encounter Date Diagnosis [...] voice recognition software. Please excuse errors in transformation coach. Mar, Dietary surveillance and counseling (ICD-10 - [...] as sweet tea, replace ice cream with Congolese yogurt, use protein shake in the a.m. [...] with the patient, and documenting clinical information. [employer] Other 06-27-2023 Evaluation note* Encounter Date Diagnosis [...] 7 days, sooner if significantly worsening symptoms. [employer] Other 11-26-2022 Evaluation note* Encounter Date Diagnosis [...] 3 days. Off work today and tomorrow [employer] Other 11-19-2021 Evaluation note* Encounter Date Diagnosis [...] Patient care instructions given in writting by [employer] [facility] document. [employer] Other 10-31-2021 Evaluation note* Encounter Date Diagnosis [...] Patient care instructions given in writting by [employer] document. [employer] Other 10-14-2021 Evaluation note* Encounter Date Diagnosis Assessment Notes Treatment Notes Treatment Clinical Notes May, Dysuria (ICD-10 - R30.0) May, Urinary tract infection, site not specified (ICD-10 - N39.0) May, Hematuria, unspecified (ICD-10 - R31.9) [employer] Other Evaluation noteNo [employer]Nort [employer] Other Evaluation noteNo assessment information available [facility] Work Phone: history general Narrative - [...] History Hospitalized for blood l oss 2010 [employer] Other history general Narrative - Reported* Type [...] History Hospitalized for blood l oss 2010 [employer] Other history general Narrative - Reported* Type [...] History Hospitalized for blood l oss 2010 [employer] Other history general Narrative - Reported* Type [...] History Hospitalized for blood l oss 2010 [employer] Other Hiswcap general Narrative - Reported* Type Description Date [...] History Hospitalized for blood l oss 2010 [employer] Other Hisqfle general Narrative - Reported* Type Description Date [...] History Hospitalized for blood l oss 2010 [employer] Other Hishzdj general Narrative - Reported* Type Description Date [...] History Hospitalized for blood l oss 2010 [employer] Other Reason for referral (narrative)* Reason *FU 06/20 would li ke a referral to pscyiatrist -- was recently diagnosed with bipolar and would like medication management. Diagnosis 1 Bipolar 2 disorder ( F31.81) Referral Organization [facility] sharan Referring Provider First Name Manisha Referring Provider Last Name Rohrbacher Referring Provider Specialty Nurse Pract ernesto Referred Organization [facility] and Barbara Mcdaniels Referred Address [address],[place], [place],[address] Referred Provider Specialty Psychiatry Referral Priority Routine General Notes KerriPaola willard 01:25:30 PM >received today, not sure if [facility] does medication management, waiting for notes to be locked Paola Henderson 06/13/2023 10:34:39 AM >notes locked, referral faxed Clinical Notes p: [id number] f: [id number] [facility] Reason *FU 06/20 would li yaneli a referral to pain management for other options for pain control for back pain Diagnosis 1 Degenerative lumbar disc (M51.36) Referral Organization [facility] sharan Referring Provider First Name Manisha Referring Provider Last Name Tari Referring Provider Specialty Nurse Prachari orozco Referred Organization [facility] Referred Provider Yrn Parsons Referred Address [address], [place],[address] Referred Provider Specialty Pain Medicin e Referral Priority Routine General Notes SantiagoPaola 01:21:23 PM >received today, waiting for notes to be locked Paola Henderson 06/13/2023 10:25:26 AM >notes locked, referral faxed Clinical Notes f: [phone] [employer] Other Summary Purpose Family History No Family History Records FoundNo Family History Records FoundNo Family History Records FoundNo Family History Records FoundNo Family History Records Found Advance Directives No Advanced Directives Records Found Advance Directive Response Recorded Date/ Time Advance Directives No April 3:36pm Chief Complaint and Reason for Visit Chief Complaint Obesity E66.01 E28.2 I10 E66.01 E28.2 I10 Chief Complaint E66.01 E28.2 I10 E66.01 E28.2 I10 exercise Obesity Additional Source Comments INFORMATION SOURCE (unrecogn ized section and content) DATE CREATED AUTHOR 08/27/2021 [employer] DATE CREATED AUTHOR AUTHOR'S ORGANIZ ATION 01/01/2023 [facility] DATE CREATED AUTHOR AUTHOR'S ORGANIZ ATION 07/26/[address] [facility] DATE CREATED AUTHOR AUTHOR'S ORGANIZ ATION 08/01/2023 [facility] DATE CREATED AUTHOR AUTHOR'S ORGANLEA ATION 08/28/[address] [facility] REASON FOR VISIT (unrecogniz ed section [...] Member Role Status Dates Manisha Marc APRN SOFTWARE DEVELOPER-C Primary Care Provider Active Team Status: Active Member Role Status Dates Manisha Marc APRN SOFTWARE DEVELOPER-C Primary Care Provider, Attending Provider Active Team Status: Inactive Member Role Status Dates Manisha Marc APRN SOFTWARE DEVELOPER-C Primary Care Provider Active Celio Mullins DO Attending Provider Active Team Status: Inactive Member Role Status Dates Manisha Marc APRN SOFTWARE DEVELOPER-C Primary Care Provider Active Clinton Frazier MD Attending Provider Active Goals (unrecognized section and [...] BE BASED ON THE PRIMARY CLINICAL RECORDS. [employer] provides no warranty or guarantee of the accuracy or completeness of information in this document.
[2023-09-08 08:37] VITALS: BP 138/84; PULSE 101; RESP 16; TEMP 36.4; O2SAT 98
[2023-09-08 08:37] LABS: HCG Qualitative NEGATIVE (NEGATIVE)
[2023-09-08 09:37] VITALS: BP 127/70; PULSE 77; RESP 18; O2SAT 98
[2023-09-08 09:38] VITALS: BP 119/56; PULSE 85; RESP 18; O2SAT 97
[2023-09-08] MEDS: BUPIVACAINE HCL 0.25% PF 25 MG/10 ML VIAL 8 ML INJ (09:40)
--- NOTE | 2023-09-08 09:40 | W.PM.PROCNOT ---
Date of procedure: 09/08/23 Pre-op diagnosis: Lumbar spondylosis Post-op diagnosis: same as pre-op Procedure: Procedure: Bilateral L4-5, L5-S1 medial branch block Medications: Bupivacaine 0.25% 6cc The patient was seen and examined in the preoperative holding area.? An informed consent was obtained and placed on the chart.? The patient was brought to the medical procedure unit and placed in the prone position.? A timeout was completed verifying correct patient, procedure site, positioning, plan, and special equipment.? Using aseptic technique, the needle was placed at left L4. Under direct fluoroscopic visualization a Quincke-tipped spinal needle was advanced to the junction of the superior articulating process with the transverse process at the designated medial branch segment.? Preceded by negative aspiration, the above-mentioned injectate was placed in 1 mL aliquots.? The procedure was repeated at left L5, S1.? The needle was removed and insertion site was covered. The same procedure, at the same levels, was completed on the right side. The patient was taken to the postprocedural recovery area and monitored for an appropriate length of time before found suitable for discharge in the company of a responsible adult. Surgeon: Bud Combs Pathology: none sent Condition: stable Disposition: no change
[2023-09-08] MEDS: LIDOCAINE HCL 2% PF 100 MG/5 ML VIAL 2 ML INJ (09:41)
== END 2023-09-08 09:43 | disposition home or self-care (01) ==
PROVIDERS: PCP Nurse Practitioner Family; Visit Provider Anesthesiology
DX: M47.816 Spondylosis without myelopathy or radiculopathy, lumbar region (principal)
CPT/HCPCS: 36415; 64493; 64494; 84703; J0665

== ENCOUNTER 2023-09-18 09:09 | Outpatient (OUT) | payer OTHER, SELFPAY ==
--- NOTE | 2023-09-18 09:32 | P.CN_ITS ---
Consult Note: HPI Data of Consult Patient: known to practice within the last 3 years Requesting Physician: Vera Blanco NP Primary Care Provider: CHRIS LOPEZ Consult Narrative Reason for consult: f/u Narrative: Ashly Mehta a pleasant 32 year old female presents for evaluation and management of low back pain. Patient has noticed this low back pain since a fall at work in 2018 where she injured her ankle and had to wear a boot, noticed the pain started after she stopped wearing the boot. Today rating pain 5/10 in low back, is intermittent. Pain increased with pushing, pulling, standing, walking, activity, decreased with sleep sitting and lying down. No numbness tingling or weakness. Aleve PRN without relief, PT last over a year ago. Has tried chiropractor care without success. Currently on cymbalta 120mg qd, gabapentin 300mg BID, tylenol 1500mg BID-TID. Recently underwent bilateral L4/5 L5/S1 facet medial branch block #2 with 100% improvement immediately following and 2 hours after the procedure. cc:: CC: Vera Blanco NP Review of Systems ROS Status of ROS 10 or more systems reviewed and unremark able except as noted in history and below Musculoskeletal Reports: back pain PFSH [facility] Medical History Herpes genitalia ?A60.00 - Herpesviral infection of urogenital system, unspecified (ICD-10) Back pain ?M54.9 - Dorsalgia, unspecified (ICD-10) Arthritis ?M19.90 - Unspecified osteoarthritis, unspecified site (ICD-10) Anemia ?D64.9 - Anemia, unspecified (ICD-10) Depression ?F32.A - Depression, unspecified (ICD-10) Anxiety ?F41.9 - Anxiety disorder, unspecified (ICD-10) COVID-19 ?U07.1 - COVID-19 (ICD-10) Asthma ?J45.909 - Unspecified asthma, uncomplicated (ICD-10) Seizures ?R56.9 - Unspecified convulsions (ICD-10) GERD (gastroesophageal reflux disease) ?K21.9 - Gastro-esophageal reflux disease without esophagitis (ICD-10) Sleep apnea ?G47.30 - Sleep apnea, unspecified (ICD-10) Palpitations ?R00.2 - Palpitations (ICD-10) Prediabetes ?R73.03 - Prediabetes (ICD-10) Hypertension ?I10 - Essential (primary) hypertension (ICD-10) PCOS (polycystic ovarian syndrome) ?E28.2 - Polycystic ovarian syndrome (ICD-10) Abnormal uterine bleeding (AUB) ?N93.9 - Abnormal uterine and vaginal bleeding, unspecified (ICD-10) Menorrhagia ?N92.0 - Excessive and frequent menstruation with regular cycle (ICD-10) Surgical History History of laparoscopy ?Z98.890 - Other specified postprocedural states (ICD-10) History of colposcopy ?Z98.890 - Other specified postprocedural states (ICD-10) History of wisdom tooth extraction ?K08.409 - Partial loss of teeth, unspecified cause, unspecified class (ICD- 10) History of cholecystectomy ?Z90.49 - Acquired absence of other specified parts of digestive tract (ICD- 10) Family History Other Family history of heart disease Family history of stroke Social History Within the past year, how often did you have a drink containing alcohol: monthly or less 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 Highest level of school completed/degree received: Associate degree: occupational, technical, vocational program Meds Home Medications and Allergies Home Medications Medication Instructions Recorded Confirmed Type albuterol sulfate 90 mcg/actuation 2 inh inhalation Q6H PRN shortness 01/17/23 09/08/23 History aerosol inhaler (ProAir HFA) of breath or wheezing duloxetine 30 mg capsule,delayed 120 mg PO QDAY 01/17/23 09/08/23 History release gabapentin 300 mg capsule 300 mg PO Q12H PRN pain 01/17/23 09/08/23 History lisinopril 20 mg tablet 20 mg PO DAILY 01/17/23 09/08/23 History metformin 500 mg tablet 500 mg PO BID 01/17/23 09/08/23 History hydroxyzine pamoate 25 mg capsule 25 mg PO TID 06/25/23 09/08/23 History (Vistaril) valacyclovir 1 gram tablet 1,000 mg PO BID 06/25/23 09/08/23 History Allergies Allergy/AdvReac Type Severity Reaction Status Date / Time amoxicillin Allergy Rash Verified 09/08/23 08:43 cefaclor Allergy Rash Verified 09/08/23 08:43 erythromycin base Allergy Hives Verified 09/08/23 08:43 Exam Constitutional Documenting provider has reviewed patient's vital signs: yes Common normals: no apparent distress, oriented x3, healthy appearing, alert and well nourished General appearance: cooperative HENMT Common normals: normocephalic, hearing grossly normal bilaterally and moist oral mucous membranes Head and scalp: normocephalic Eye Common normals: PERRL Pupil: PERRL Neck & C-Spine Common normals: full ROM General: normal visual inspection Chest Common normals: inspection of chest normal Respiratory Common normals: normal respiratory effort, no retractions and no use of accessory muscles Back & Pelvis Lumbar spine/lower back: ROM limited, pain with ROM and straight leg raise negative bilaterally Sacroiliac joints: SI joint(s) abnormal (bilateral marissa, thigh thrust) Other: bilateral facet loading, right worse than left pain over L4-5 L5-S1 facets Neuro Common normals: oriented x3, CN's II-XII intact bilaterally, moves all extremities, no focal motor deficits, no sensory deficits noted and deep tendon reflexes 2+ bilaterally Sensorium/orientation: alert Motor exam: strength 5/5 throughout and no movement abnormalities noted Psych Common normals: mental status grossly normal, thought process normal, cooperative, affect normal, speech normal and activity/motor behavior normal Speech: normal speech Thought process: normal thought process Results Additional Findings Additional findings: I have checked an OARRS report on this patient today and there are no aberrancies noted in the prescribing history.?? A drug screen was completed and reviewed within the last year, and if there has not been a drug screen completed we ordered one today to monitor higher risk, state monitored pain medication use. As part of providing excellent, safe, comprehensive care, the following was co mpleted at our patient's visit: 1. A medication reconciliation and review to ensure accurate knowledge of current/active medications, including asking our patients to inform us about any [id number] medications or herbal remedies/nutritional supplements/alternative remedies. 2. A review to specifically ensure our patients have had annual screening for: elevated body mass index (BMI), tobacco use, screening for depression, and screening for unhealthy alcohol use. When screening is concerning, patients are provided with education and the specific recommendation to discuss the concerning health issue and treatment options with their primary care provider. Assessment and Plan Assessment and Plan (1) Lumbar spondylosis: Assessment and Plan: The patient has had over 3 months of moderate to severe low back pain with functional impairment and inadequate response to conservative care including NSAIDS (unless there are contraindication such as concurrent blood thinners), multiple oral or topical pain medications, and home exercise program/physical therapy.?Patient has completed >6 weeks of guided home exercise program and/or formal physical therapy program without relief of their symptoms.? I have reviewed the imaging of the lumbar spine and no red flags were identi fied.? The imaging reveals radiographic findings consistent with lumbar spondylosis The Oswestry Disability Index was completed, and the patient scored a 28%.? The patient noted the following:?? moderate to severe pain, pain with standing and walking, pain limiting heavy weights We discussed the risks and benefits of the procedure with the patient, and we are NOT planning on using sedation as outlined in the guidelines from Medicare unless there is a documented reason that sedation would be strongly recommended.?? The procedure will be completed with fluoroscopic guidance.? (2) Obesity: Assessment and Plan: The patient was counseled that proper dietary changes and consistent participation in a home exercise plan can lead to weight loss. Weight loss can help to improve functionality in patients with chronic pain.? (3) Back pain: (4) GERD (gastroesophageal reflux disease): Assessment and Plan: limit NSAIDs (5) Encounter for medication monitoring: Plan bilateral L4-5 L5-S1 facet medial branch thermal RFA refill and continue gabapentin 300mg BID continue HEP f/u 1 month after thermal RFA
== END 2023-09-18 09:10 | disposition home or self-care (01) ==
LOC: PM 09:11
PROVIDERS: PCP Nurse Practitioner Family; Visit Provider Nurse Practitioner
DX: M47.816 Spondylosis without myelopathy or radiculopathy, lumbar region (principal); E66.9 Obesity, unspecified; M54.50 Low back pain, unspecified; K21.9 Gastro-esophageal reflux disease without esophagitis; Z51.81 Encounter for therapeutic drug level monitoring
CPT/HCPCS: G0463

== ENCOUNTER 2023-10-06 06:51 | Day surgery (SDC) | payer OTHER, SELFPAY ==
--- OUTSIDE RECORDS SUMMARY | 2023-10-06 06:53 | XMS_ITS | CCD ---
Author Name Unknown Address [address] [place] [address] Organization [facility] Care Team Providers Care Signal Tower Operator Name Role Phone BRENT KINNEY Referring Unavailable BRENT KINNEY Attending Unavailable BRENT KINNEY Admitting Unavailable Oma Michelle Unavailable VIOLA, DR NUR Consulting Unavailable DANBURY, DR NUR Admitting Unavailable DANBURY, DR NUR Primary Care Unavailable DANBURY, DR NUR Attending Unavailable ZIEBER, DR SUGEY Ibrahim Consulting Unavailable FREDA ., DR COLLADO Admitting Unavailable DANBURY, DR NUR Primary Care Unavailable FREDA ., DR COLLADO Attending Unavailable FREDA ., DR COLLADO Consulting Unavailable DANBURY, DR NUR Consulting Unavailable DANBURY, DR NUR Primary Care Unavailable HOUSE, DR NUR Admitting Unavailable HOUSE, DR NUR Attending Unavailable FREDA ., DR COLLADO Admitting Unavailable DANBURY, DR NUR Primary Care Unavailable FREDA ., [...] Unavailable Celio Mullins Unavailable Manisha Marc Unavailable [phone] ROSITA Marc Primary Care Provider Rohrbacher, SILVERWARE BUFFING MACHINE OPERATOR Manisha Attending Provider DO Celio Mullins Attending Provider MELA ANDERSON Attending Unavailable Rohrbacher, SILVERWARE BUFFING MACHINE OPERATOR Manisha Primary Care Provider MD Clinton Frazier Attending Provider Tari, ROSITA Dyer Attending Provider Garret CROWLEY, Bud Denis Attending Unavailable Garret CROWLEY, Bud Denis Attending Unavailable Rohrbacher, SILVERWARE BUFFING MACHINE OPERATOR Manisha Primary Care Provider DO Celio Mullins Attending Provider MD Edward Gilmore Attending Provider MD Clinton Frazier Attending Provider Keesha Marcnifer Attending Unavailable Rohrbacher, Manisha Admitting Unavailable Rohrbacher, Manisha Primary Care Unavailable Rohrbacher, Manisha Primary Care Unavailable Clinton Frazier Admitting Unavailable Clinton Frazier Attending Unavailable Rohrbacher, Manisha Primary Care Unavailable Mullins, Celio M Admitting Unavailable Mullins, Celio M Attending Unavailable Rohrbacher, Manisha Primary Care Unavailable Mullins, Celio M Admitting Unavailable Mullins, Celio M Attending Unavailable Rohrbacher, Manisha Primary Care Unavailable Edward Gilmore Admitting Unavailab le Scar Gilmorehman Attending Unavailab le Mullins, Celio M Admitting Unavailable Mullins, Celio M Attending Unavailable Rohrbacher, Manisha Primary Care Unavailable Allergies Allergy Classification Reported Allergen(s) Allergy Type Date of Onset Reaction(s) Facility (20 sources) Amoxicillin; Translations: [AMOXICILLIN] Drug Allergy 07-08-20 16 [facility] ([facility] sources) Cefaclor; Translations: [CEFACLOR] Drug Allergy 04-14-20 15 Unknown Reaction, Hives [facility] (19 sources) Erythromycin; Translations: [ERYTHROMYCIN] Drug Allergy 04-14-20 15 [facility] Repository (19 sources) Cefaclor; Translations: [Ceclor] Drug Allergy 04-17-20 15 [facility] Repository (4 sources) Erythromycin Drug Allergy 04-17-20 15 Unknown Reaction, [facility] Repository (4 sources) Cephalosporins (Antibiotic); Translations: [Cephalosporins] Allergy to substance 12-10-19 22 Unknown Reaction, Rash [facility] (3 sources) Lactulose; Translations: [lactulose] Drug Allergy 02-12-20 20 Unknown Reaction [facility] (1 source) Erythromycin Drug Allergy 10-01-19 24 [facility] Repository Medications Current Medications Medication Drug Class(es) Dates Sig (Normalized) Sig (Original) [id number] 200 actuat albuterol 0.09 mg/actuat metered dose [...] a day for 10 day(s) Jun, Active fluticasone propionate 0.05 mg/actuat metered dose nasal spray (4 sources) Corticosteroid Start: 10-01-19 Fluticasone Propionate Active 2 SPRAY INTRANASAL Daily October 01, 2023 12:00am Start: 06-29-2023 take 2 spray(s) nasa l route once daily Fluticasone Propionate 50 MCG/ACT 2 sprays Nasally Once a day for 14 day(s) Jun, Active gabapentin 300 mg oral capsule (16 sources) Anti-epileptic Agent Start: 02-12-2020 End: 10-01-2023 take 1 capsule by mouth three times daily as needed Gabapentin Active 300 MG PO Three times daily October 01, 2023 12:00am [employer] capsule Orally Once a day PRN; Note: Source Status: RefillPRN; Refills: 0; Provider: Tari Garnett take 1 capsule by mo [facility] once daily as needed Gabapentin 300 MG 1 capsule Orally Once a day PRN for 30 days PRN Active lamoTRIgine 25 mg oral tablet (1 source) Mood Stabilizer, Anti-epileptic Agent Start: 10-01-2023 take 25 mg by mouth twice daily Lamotrigine Active 25 MG PO Twice daily October 01, 2023 12:00am lisinopril 20 mg oral tablet (20 sources) Angiotensin Converting Enzyme Inhibitor Start: 10-01-2023 take 10 mg by mouth once daily Lisinopril Active 10 MG PO Daily October 01, 2023 9:14am Start: 10-01-2023 take 10 mg by mouth once daily Lisinopril Active 10 MG PO Daily October 01, 2023 12:00am Start: 12-07-2021 End: 10-01-2023 take 20 mg by mouth once daily Lisinopril Discontinued 20 MG PO Daily December 06, 2021 11:00pm October 01, 2023 9:18am [facility]four hours Lisinopril 10 MG 1 tablet Orally Once a day for 90 days Active Lisinopril Activ e melatonin 10 mg oral tablet (14 sources) Start: 10-01-2023 End: 10-01-2023 take 1 mg by mouth once daily at bedtime Melatonin Active MG PO Daily at bedtime October 01, 2023 9:15am take 1 tablet by miranda th every twenty-four hours Melatonin 10 MG 1 tablet at bedtime as needed Orally Once Daily PRN Active take 1 tablet by miranda th once daily at bedtime as needed Melatonin 10 MG 1 tablet at bedtime as needed Orally Once Daily PRN Active Melatonin PRN Ac tive metFORMIN hydrochloride 500 mg oral tablet (17 sources) Biguanide Start: 02-12-2020 End: 10-01-2023 take 1 tablet by mouth twice daily Metformin Active 500 MG PO Twice daily October 01, 2023 12:00am [employer] tablet with a meal Orally twice daily; Note: Source Status: Taking; Provider: aTri Dyer ( ) Metformin & Diet Manage Prod (5 sources) Metformin & Diet Manage Prod Active Multivitamin preparation (15 sources) Start: 12-07-2021 take 1 tablet by [...] Nucleoside Analog DNA Polymerase Inhibitor Start: 02-12-2020 End: 10-01-2023 Valacyclovir (Valtrex) 1 gram tablet Active 1000 MG PO Daily October 01, 2023 9:15am Start: 02-12-2020 End: 02-12-2020 take 1 mg [...] Sig (Original) ARIPiprazole 5 mg oral tablet (5 sources) Atypical Antipsychotic Start: 03-05-2020 End: 12-07-2021 take 5 mg by mouth once daily Aripiprazole Discontinued 5 MG PO Daily March 04, 2020 11:00pm December 07, 2021 9:45am [place] Not-Cate [place] Active 24 hr buPROPion hydrochloride 150 mg extended release oral tablet (3 sources) Aminoketone Start: 02-12-2020 End: 02-17-2020 take 150 mg by mouth once daily Bupropion Hcl Discontinued 150 MG PO Daily February 11, 2020 11:00pm February 17, 2020 10:57am citalopram 40 mg oral tablet (6 sources) Serotonin Reuptake Inhibitor Start: 02-12-2020 End: 02-17-2020 take 40 mg by mouth once daily Citalopram Discontinued 40 MG PO Daily February 11, 2020 11:00pm February 17, 2020 10:57am Start: 02-12-2020 End: 02-12-2020 Citalopram Discontinued MG T ABLET February 11, 2020 11:00pm February 12, 2020 7:18pm DULoxetine 60 mg delayed release oral capsule (20 sources) Serotonin and Norepinephrine Reuptake Inhibitor Start: 10-01-2023 End: 10-01-2023 take 2 capsules by mouth once daily Duloxetine (Cymbalta) 60 mg capsule,delayed release(DR/EC) Discontinued 120 MG PO Daily October 01, 2023 12:00am October 01, 2023 9:14am [employer] capsule Orally Once a day; Note: Source Status: Taking; Refills: 1; Qty: 180 Capsule; Provider: Tari Garnett Start: 02-17-2020 take 90 mg by mouth once daily at bedtime Duloxetine Active 90 MG PO Daily at bedtime 90 February 16, 2020 11:00pm take 2 capsules by m outh every twenty-four hours Cymbalta 60 MG 2 capsule Orally Once a day for 90 days Active Cymbalta Active hydrOXYzine pamoate 25 mg oral capsule (20 sources) Antihistamine Start: 12-07-2021 End: 10-01-2023 take 25 mg by mouth three times daily Hydroxyzine Pamoate Discontinued 25 MG PO Three times daily December 06, 2021 11:00pm October 01, 2023 9:14am Vistaril 25 MG 1 Capsule prn Orally 2-3 times per day Active take 1 capsule by mouth every ei ght hours Vistaril 25 MG 1 capsule as needed Orally every 8 hrs Not-Taking Ketorolac (15 sources) Nonsteroidal Anti-inflammatory Drug, Cyclooxygenase Inhibitor Start: 08-03-2018 Toradol per 15 mg Jul, 60 mg 24 hr metoprolol succinate 50 mg extended release oral tablet (3 sources) beta-Adrenergic Ann Start: 02-12-2020 End: 12-07-2021 [...] Date Documented Da te Episodic/Chronic Administrative/social admission (15 sources) Dietary counseling and surveillance; Translations: [Other specified counseling] Onset: 10-01-2023 Episodic Anxiety disorders (14 sources) Anxiety; Translations: [...] or chronic Episodic Diabetes mellitus without complication (4 sources) Impaired fasting glucose; Translations: [Prediabetes] Onset: 10-01-2023 Episodic Epilepsy; convulsions (10 sources) Seizure disorder; [...] with vomiting, unspecified Episodic Other endocrine disorders (14 sources) Polycystic ovary syndrome; Translations: [Polycystic ovarian syndrome] 10-01-2023 Chronic Other endocrine disorders (6 sources) Polycystic ovarian syndrome; Translations: [Polycystic ovaries] Onset: 07-03-2023 Chronic Other female genital disorders [...] nutritional; endocrine; and metabolic disorders (12 sources) Insulin resistance; Translations: [Metabolic syndrome] 10-01-2023 Chronic Other nutritional; endocrine; and metabolic disorders (4 sources) Morbid (severe) obesity due to excess calories; Translations: [Morbid obesity] Onset: 07-01-2023 Chronic Other nutritional; endocrine; and metabolic disorders (2 sources) Metabolic syndrome; Translations: [Insulin resistance] Chronic Other nutritional; endocrine; and metabolic disorders (19 sources) Body mass index 40+ - severely obese; Translations: [Body mass index (BMI) 40.0-44.9, adult] 10-01-2023 Chronic Other nutritional; endocrine; and metabolic disorders (19 sources) Obesity; Translations: [Obesity, unspecified] 10-01-2023 Chronic Other nutritional; endocrine; and metabolic disorders [...] Spondylosis; intervertebral disc disorders; other back problems (13 sources) Sacroiliitis, not elsewhere classified; Translations: [Other intervertebral disc degeneration, lumbar region] Onset: 11-08-2022 Chronic Unclassified (1 source) Morbid (severe) obesity due to excess calories; Translations: [Morbid (severe) obesity due to excess calories] Onset: 10-01-2023 Unclassified (1 source) Food insecurity; Translations: [Food insecurity] Onset: 10-01-2023 Unclassified (1 source) Dietary counseling and surveillance; Translations: [Dietary counseling and surveillance] Onset: 08-19-2023 Unclassified (1 source) Encounter for other specified aftercare; Translations: [Encounter for other specified aftercare] Onset: 07-19-2023 Viral infection (2 sources) Viral infection, unspecified; Translations: [Herpes simplex] Episodic Past or Other Problems Problem Classification [...] (COVID-19) RNA SURI+probe Ql (Unsp spec) Negative [employer] Other COVID + FLU Quick Testing Negative [employer] Other Alanine aminotransferase [En zymatic activity/volume] in Serum or PlasmaOrdered By: Celio Mullins on 07-03-2023 ALT [Catalytic activity/Vol] 22 U/L 7-52 [facility] Albumin [Mass/volume] in Ser um or Plasma by Bromocresol green (BCG) dye binding methoOrdered By: Celio Mullins on 07-03-2023 Albumin BCG dye [Mass/Vol] 4.4 g/dL 3.5-5.7 [facility] Alkaline phosphatase [Enzyma tic activity/volume] in Serum or PlasmaOrdered By: Celio Mullins on 07-03-2023 ALP [Catalytic activity/Vol] 68 U/L 34-104 [facility] Aspartate aminotransferase [ Enzymatic activity/volume] in Serum or PlasmaOrdered By: Celio Mullins on 07-03-2023 AST [Catalytic activity/Vol] 18 U/L 13-39 [facility] Bilirubin.total [Mass/volume ] in Serum or PlasmaOrdered By: Celio Mullins on 07-03-2023 Bilirubin [Mass/Vol] 0.4 mg/dL 0.3-1.0 [facility] Calcium [Mass/volume] in Ser um or PlasmaOrdered By: Celio Mullins on 07-03-2023 Calcium [Mass/Vol] 9.4 mg/dL 8.6-10.3 [facility] Carbon dioxide, total [Moles /volume] in Serum or PlasmaOrdered By: Celio uMllins on 07-03-2023 CO2 [Moles/Vol] 30.1 mmol/L 21.0-31.0 [facility] Chloride [Moles/volume] in S marta or PlasmaOrdered By: Celio Mullins on 07-03-2023 Chloride [Moles/Vol] 105 mmol/L 98-107 [facility] Cholesterol [Mass/volume] in Serum or PlasmaOrdered By: Celio Mullins on 07-03-2023 Cholesterol [Mass/Vol] 126 mg/dL 140-200 [facility] Comment on above: Chol less than 200 m g/dl low riskChol 201-239 mg/dl borderline riskChol 240 mg/dl and greater high risk Cholesterol in LDL Calc [Mas s/Vol]Ordered By: Celio Mullins on 07-03-2023 Cholesterol in LDL [Mass/Vol] 69 mg/dL 0-100 [facility] Comment on above: LDL ATP III CLASSIFI CATIONLDL less than 100 mg/dL OptimalLDL 100-129 mg/dL Near or above optimalLDL 130-159 mg/dL Borderline highLDL 160-189 mg/dL HighLDL greater than 189 mg/dL Very high Cholesterol in VLDL Calc [Ma ss/Vol]Ordered By: Celio Mullins on 07-03-2023 Cholesterol in VLDL [Mass/Vol] 18 mg/dL [facility] Comprehensive Metabolic Pane landon 07-03-2023 Albumin [Mass/Vol] 4.4 g/dL Normal 3.5-5.7 [facility] Comment on above: Performed By: #### L IPID, CMP #### [facility] [address] Albumin/Globulin [Mass ratio] 1.4 {ratio} Normal [facility] Comment on above: Performed By: #### L IPID, CMP #### [facility] [address] ALP [Catalytic activity/Vol] 68 U/L Normal 34-104 [facility] Comment on above: Performed By: #### L IPCISCO CMP #### [address] ALT [Catalytic activity/Vol] 22 U/L Normal 7-52 [facility] Comment on above: Performed By: #### L IPCISCO, CMP #### [address] Anion gap [Moles/Vol] 10.2 mmol/L Normal 6.0-15.0 [facility] Comment on above: Performed By: #### L IPCISCO, CMP #### [address] AST [Catalytic activity/Vol] 18 U/L Normal 13-39 [facility] Comment on above: Performed By: #### L IPID, CMP #### [address] Bilirubin [Mass/Vol] 0.4 mg/dL Normal 0.3-1.0 [facility] Comment on above: Performed By: #### L IPID, CMP #### [address] Calcium [Mass/Vol] 9.4 mg/dL Normal 8.6-10.3 [facility] Comment on above: Performed By: #### L IPID, CMP #### [place] [address] [place] Chloride [Moles/Vol] 105 mmol/L Normal 98-107 [facility] Comment on above: Performed By: #### L IPID, CMP #### [facility] [address] CO2 [Moles/Vol] 30.1 mmol/L Normal 21.0-31.0 [facility] Comment on above: Performed By: #### L IPID, CMP #### [facility] [address] Creatinine [Mass/Vol] 0.63 mg/dL Normal 0.60-1.20 [facility] Comment on above: Performed By: #### L IPID, CMP #### [place] [address] [place] GFR/1.73 sq M.predicted MDRD (S/P/Bld) [Vol rate/Area] mL/min/{1.73_m2} Normal [facility] Comment on above: Performed By: #### L IPID, CMP #### [address] Globulin (S) [Mass/Vol] 3.1 g/dL Normal [facility] Comment on above: Performed By: #### L IPID, CMP #### [address] Glucose [Mass/Vol] 97 mg/dL Normal 70-100 [facility] Comment on above: Result Comment: [place] Glucose Reference Range is dependent on time and content of last meal. Glucose of more than 200 mg/dL in a nonstressed, ambulatory subject supports the diagnosis of Diabetes Mellitus. ADA recommended reference range Performed By: #### L IPID, CMP #### [facility] [address] [place] [address] [place] Potassium [Moles/Vol] 4.3 mmol/L Normal 3.5-5.1 [facility] Comment on above: Performed By: #### L IPID, CMP #### [place] [address] [place] Protein [Mass/Vol] 7.5 g/dL Normal 6.4-8.9 [facility] Comment on above: Performed By: #### L IPID, CMP #### [facility] [address] Sodium [Moles/Vol] 141 mmol/L Normal 136-145 [facility] Comment on above: Performed By: #### L IPID, CMP #### [facility] [address] [place] [address] [place] Urea nitrogen [Mass/Vol] 13 mg/dL Normal 7-25 [facility] Comment on above: Performed By: #### L IPID, CMP #### [facility] [address] Creatinine [Mass/volume] in Serum or PlasmaOrdered By: Celio Mullins on 07-03-2023 Creatinine [Mass/Vol] 0.63 mg/dL 0.60-1.20 [facility] Globulin Calc (S) [Mass/Vol] Ordered By: Celio Mullins on 07-03-2023 Globulin (S) [Mass/Vol] 3.1 g/dL [facility] Glucose [Mass/volume] in Ser um or PlasmaOrdered By: Celio Mullins on 07-03-2023 Glucose [Mass/Vol] 97 mg/dL 70-100 [facility] Comment on above: ADA recommended refe rence rangeRandom Glucose Reference Range is dependent on time and content of last meal. Glucose of more than 200 mg/dL in a nonstressed, ambulatory subject supports the diagnosis of Diabetes Mellitus. Lipid Panelon 07-03-2023 Cholesterol [Mass/Vol] 126 mg/dL Low 140-200 [facility] Comment on above: Result Comment: Chol less than 200 mg/dl low risk Chol 201-239 mg/dl borderline risk Chol 240 mg/dl and greater high risk Performed By: #### L IPID, CMP #### [facility] [address] Cholesterol in HDL [Mass/Vol] 39 mg/dL Normal 23-92 [facility] Comment on above: Result Comment: HDL CHOL ATP-III CLASSIFICATION Cardiovascular Risk HDL > or equal to 60 mg/dL LOW HDL < 40 mg/dL HIGH Performed By: #### L IPID, CMP #### [facility] [address] [place] [address] Cholesterol.total/Mali sterol in HDL [Mass ratio] 3.2 {ratio} Normal <5.0 [facility] Comment on above: Result Comment: PERF ORMED BY: [place] [address] PATHOLOGIST DOOR TRIMMER NESHA MAIER M.D. Performed By: #### L IPID, CMP #### [address] LDL Cholesterol,Calculated 69 mg/dL Normal 0-100 [facility] Comment on above: Result Comment: LDL ATP III CLASSIFICATION LDL less than 100 mg/dL Optimal LDL 100-129 mg/dL Near or above optimal LDL 130-159 mg/dL Borderline high LDL 160-189 mg/dL High LDL greater than 189 mg/dL Very high Performed By: #### L IPID, CMP #### [facility] [address] [place] [address] Triglyceride w/Reflex 92 mg/dL Normal 0-149 [facility] Comment on above: Result Comment: TRIG ATP III CLASSIFICATION TRIG less than 150 mg/dL Normal TRIG 150-199 mg/dL Borderline high TRIG 200-500 mg/dL High TRIG greater than 500 mg/dL Very high Standard traceable to the Center for Disease Conrtrol and Prevention (CDC) test method. Performed By: #### L IPID, CMP #### [facility] [address] [place] [address] VLDL CHOLESTEROL 18 mg/dL Normal [facility] Comment on above: Performed By: #### L IPID, CMP #### [facility] [address] [place] [address] No Panel InformationOrdered By: Celio Mullins on 07-03-2023 Estimated GFR (CKD-EPI) > 60.0 mL/Min [facility] Creatinine Clearance (Chem N/A [facility] Potassium [Moles/volume] in Serum or PlasmaOrdered By: Celio Mullins on 07-03-2023 Potassium [Moles/Vol] 4.3 mmol/L 3.5-5.1 [facility] Protein [Mass/volume] in Ser um or PlasmaOrdered By: Celio Mullins on 07-03-2023 Protein [Mass/Vol] 7.5 g/dL 6.4-8.9 [facility] Serum or plasma albumin/glob ulin mass ratioOrdered By: Celio Mullins on 07-03-2023 Albumin/Globulin [Mass ratio] 1.4 {ratio} [facility] Serum or plasma anion gap de terminationOrdered By: Celio Mullins on 07-03-2023 Anion gap [Moles/Vol] 10.2 mmol/L 6.0-15.0 [facility] Serum or plasma high density lipoprotein (HDL) cholesterol measurementOrdered By: Celio Mullins on 07-03-2023 Cholesterol in HDL [Mass/Vol] 39 mg/dL 23- [facility] Comment on above: HDL CHOL ATP-III CLA SSIFICATION Cardiovascular RiskHDL > or equal to 60 mg/dL LOWHDL < 40 mg/dL HIGH Serum or plasma total choles terol/high density lipoprotein (HDL) cholesterol mass ratOrdered By: Celio Mullins on 07-03-2023 Cholesterol.total/Mali sterol in HDL [Mass ratio] 3.2 {ratio} <5.0 [facility] Sodium [Moles/volume] in Ser um or PlasmaOrdered By: Celio Mullins on 07-03-2023 Sodium [Moles/Vol] 141 mmol/L 136-145 [facility] Triglyceride [Mass/volume] i n Serum or PlasmaOrdered By: Celio Mullins on 07-03-2023 Triglyceride [Mass/Vol] 92 mg/dL 0-149 [facility] Comment on above: TRIG ATP III CLASSIF ICATIONTRIG less than 150 mg/dL NormalTRIG 150-199 mg/dL Borderline highTRIG 200-500 mg/dL High TRIG greater than 500 mg/dL Very highStandard traceable to the Center for Disease Conrtrol and Prevention (CDC) test method. Urea nitrogen [Mass/volume] in Serum or PlasmaOrdered By: Celio Mullins on 07-03-2023 Urea nitrogen [Mass/Vol] 13 mg/dL 7- [facility] A1C with Estimated Average G kathien 07-01-2023 Glucose [Mass/Vol] 117 mg/dL Normal [facility] Comment on above: Order Comment: Reaso n for Exam Severe obesity (BMI >= 40);PCOS (polycystic ovarian syndrome Result Comment: PERF ORMED BY: [place] [address] PATHOLOGIST DOOR TRIMMER NESHA MAIER M.D. Performed By: #### A POB, LIPA #### [facility] , #### CMP, A1C WT eA #### [facility] [address] [place] [address] HbA1c (Bld) [Mass fraction] 5.7 % High 4.3-5.6 [facility] Comment on above: Order Comment: Reaso n for Exam Severe obesity (BMI >= 40);PCOS (polycystic ovarian syndrome Result Comment: Incr eased risk for diabetes: 5.7 - 6.4 diabetes: >6.4 glycemic control for adults with diabetes: <7.0 Performed By: #### A POB, LIPA #### [facility] , #### CMP, A1C WTH eA #### [facility] [address] Alanine aminotransferase [En zymatic activity/volume] in Serum or PlasmaOrdered By: Celio Mullins on 07-01-2023 ALT [Catalytic activity/Vol] 21 U/L 7-52 [facility] Albumin [Mass/volume] in Ser um or Plasma by Bromocresol green (BCG) dye binding methoOrdered By: Celio Mullins on 07-01-2023 Albumin BCG dye [Mass/Vol] 4.6 g/dL 3.5-5.7 [facility] Alkaline phosphatase [Enzyma tic activity/volume] in Serum or PlasmaOrdered By: Celio Mullins on 07-01-2023 ALP [Catalytic activity/Vol] 72 U/L 34-104 [facility] Apolipoprotein Bon Apolipoprotein B [Mass/Vol] 83 mg/dL Normal <90 [facility] Comment on above: Order Comment: Reaso n for Exam Severe obesity (BMI >= 40);PCOS (polycystic ovarian syndrome Result Comment: Hedy osuna < 90 Borderline High 90 - 99 High 100 - 130 Very High >130 ASCVD RISK THERAPEUTIC TARGET CATEGORY APO B (mg/dL) Very High Risk <80 (if extreme risk <70) High Risk <90 Moderate Risk <90 Performed at: [employer] [address] [id number] Information Systems Security Manager: Jeanna Case MD, Phone: [phone] PERFORMED BY: [place] [address] PATHOLOGIST DOOR TRIMMER NESHA MAIER M.D. Performed By: #### A POB, LIPA #### [facility] , #### CMP, A1C WTH eA #### [facility] [address] Apolipoprotein B [Mass/volum e] in Serum or PlasmaOrdered By: Celio Mullins on 07-01-2023 Apolipoprotein B [Mass/Vol] 83 mg/dL <90 [facility] Comment on above: Desirable < 90 [place] High 90 - 99 High 100 - 130 Very High >130 ASCVD RISK THERAPEUTIC TARGET CATEGORY APO B (mg/dL) Very High Risk <80 (if extreme risk <70) High Risk <90 Moderate Risk <90Performed at: [employer] [address] [id number] Director: Jeanna Case MD, Phone: [phone] Aspartate aminotransferase [ Enzymatic activity/volume] in Serum or PlasmaOrdered By: Celio Mullins on 07-01-2023 AST [Catalytic activity/Vol] 19 U/L 13-39 [facility] Bilirubin.total [Mass/volume ] in Serum or PlasmaOrdered By: Celio Mullins on 07-01-2023 Bilirubin [Mass/Vol] 0.4 mg/dL 0.3-1.0 [facility] Calcium [Mass/volume] in Ser um or PlasmaOrdered By: Celio Mullins on 07-01-2023 Calcium [Mass/Vol] 9.8 mg/dL 8.6-10.3 [facility] Carbon dioxide, total [Moles /volume] in Serum or PlasmaOrdered By: Celio Mullins on 07-01-2023 CO2 [Moles/Vol] 25.3 mmol/L 21.0-31.0 [facility] Chloride [Moles/volume] in S marta or PlasmaOrdered By: Celio Mullins on 07-01-2023 Chloride [Moles/Vol] 105 mmol/L 98-107 [facility] Comprehensive Metabolic Pane landon 07-01-2023 Albumin [Mass/Vol] 4.6 g/dL Normal 3.5-5.7 [facility] Comment on above: Order Comment: Reaso n for Exam Severe obesity (BMI >= 40);PCOS (polycystic ovarian syndrome NON FASTING Performed By: #### A POB, LIPA #### [facility] , #### CMP, A1C WTH eA #### [facility] [address] [place] [address] [place] Albumin/Globulin [Mass ratio] 1.4 {ratio} Normal [facility] Comment on above: Order Comment: Reaso n for Exam Severe obesity (BMI >= 40);PCOS (polycystic ovarian syndrome NON FASTING Performed By: #### A POB, LIPA #### [facility] , #### CMP, A1C WTH eA #### [facility] [address] [place] [address] [place] ALP [Catalytic activity/Vol] 72 U/L Normal 34-104 [facility] Comment on above: Order Comment: Reaso n for Exam Severe obesity (BMI >= 40);PCOS (polycystic ovarian syndrome NON FASTING Result Comment: PERF ORMED BY: [facility] [address] [place] [address] PATHOLOGIST DOOR TRIMMER NESHA MAIER M.D. Performed By: #### A POB, LIPA #### [facility] , #### CMP, A1C WTH eA #### [address] ALT [Catalytic activity/Vol] 21 U/L Normal 7-52 [facility] Comment on above: Order Comment: Reaso n for Exam Severe obesity (BMI >= 40);PCOS (polycystic ovarian syndrome NON FASTING Performed By: #### A POB, LIPA #### [facility] , #### CMP, A1C WTH eA #### [address] Anion gap [Moles/Vol] 11.5 mmol/L Normal 6.0-15.0 [facility] Comment on above: Order Comment: Reaso n for Exam Severe obesity (BMI >= 40);PCOS (polycystic ovarian syndrome NON FASTING Performed By: #### A POB, LIPA #### [facility] , #### CMP, A1C WTH eA #### [facility] [address] [place] [address] AST [Catalytic activity/Vol] 19 U/L Normal 13-39 [facility] Comment on above: Order Comment: Reaso n for Exam Severe obesity (BMI >= 40);PCOS (polycystic ovarian syndrome NON FASTING Performed By: #### A POB, LIPA #### [facility] , #### CMP, A1C WTH eA #### [address] Bilirubin [Mass/Vol] 0.4 mg/dL Normal 0.3-1.0 [facility] Comment on above: Order Comment: Reaso n for Exam Severe obesity (BMI >= 40);PCOS (polycystic ovarian syndrome NON FASTING Performed By: #### A POB, LIPA #### [facility] , #### CMP, A1C WTH eA #### [facility] [address] Calcium [Mass/Vol] 9.8 mg/dL Normal 8.6-10.3 [facility] Comment on above: Order Comment: Reaso n for Exam Severe obesity (BMI >= 40);PCOS (polycystic ovarian syndrome NON FASTING Performed By: #### A POB, LIPA #### [facility] , #### CMP, A1C WTH eA #### [facility] [address] Chloride [Moles/Vol] 105 mmol/L Normal 98-107 [facility] Comment on above: Order Comment: Reaso n for Exam Severe obesity (BMI >= 40);PCOS (polycystic ovarian syndrome NON FASTING Performed By: #### A POB, LIPA #### [facility] , #### CMP, A1C WTH eA #### [address] CO2 [Moles/Vol] 25.3 mmol/L Normal 21.0-31.0 [facility] Comment on above: Order Comment: Reaso n for Exam Severe obesity (BMI >= 40);PCOS (polycystic ovarian syndrome NON FASTING Performed By: #### A POB, LIPA #### [facility] , #### CMP, A1C WTH eA #### [address] Creatinine [Mass/Vol] 0.64 mg/dL Normal 0.60-1.20 [facility] Comment on above: Order Comment: Reaso n for Exam Severe obesity (BMI >= 40);PCOS (polycystic ovarian syndrome NON FASTING Performed By: #### A POB, LIPA #### [facility] , #### CMP, A1C WTH eA #### [facility] [address] [place] [address] [place] GFR/1.73 sq M.predicted MDRD (S/P/Bld) [Vol rate/Area] mL/min/{1.73_m2} Normal [facility] Comment on above: Order Comment: Reaso n for Exam Severe obesity (BMI >= 40);PCOS (polycystic ovarian syndrome NON FASTING Performed By: #### A POB, LIPA #### [facility] , #### CMP, A1C WTH eA #### [facility] [address] Globulin (S) [Mass/Vol] 3.2 g/dL Normal [facility] Comment on above: Order Comment: Reaso n for Exam Severe obesity (BMI >= 40);PCOS (polycystic ovarian syndrome NON FASTING Performed By: #### A POB, LIPA #### [facility] , #### CMP, A1C WTH eA #### [facility] [address] [place] [id number] [facility] Glucose [Mass/Vol] 95 mg/dL Normal 70-100 [facility] Comment on above: Order Comment: Reaso n for Exam Severe obesity (BMI >= 40);PCOS (polycystic ovarian syndrome NON FASTING Result Comment: Formerly named [facility] Glucose Reference Range is dependent on time and content of last meal. Glucose of more than 200 mg/dL in a nonstressed, ambulatory subject supports the diagnosis of Diabetes Mellitus. ADA recommended reference range Performed By: #### A POB, LIPA #### [facility] , #### CMP, A1C WTH eA #### [facility] [address] [place] [address] [place] Potassium [Moles/Vol] 3.8 mmol/L Normal 3.5-5.1 [facility] Comment on above: Order Comment: Reaso n for Exam Severe obesity (BMI >= 40);PCOS (polycystic ovarian syndrome NON FASTING Performed By: #### A POB, LIPA #### [facility] , #### CMP, A1C WTH eA #### [facility] [address] [place] [id number] [facility] Protein [Mass/Vol] 7.8 g/dL Normal 6.4-8.9 [facility] Comment on above: Order Comment: Reaso n for Exam Severe obesity (BMI >= 40);PCOS (polycystic ovarian syndrome NON FASTING Performed By: #### A POB, LIPA #### [facility] , #### CMP, A1C WTH eA #### [facility] [address] [place] [address] [place] Sodium [Moles/Vol] 138 mmol/L Normal 136-145 [facility] Comment on above: Order Comment: Reaso n for Exam Severe obesity (BMI >= 40);PCOS (polycystic ovarian syndrome NON FASTING Performed By: #### A POB, LIPA #### [facility] , #### CMP, A1C WTH eA #### [facility] [address] Urea nitrogen [Mass/Vol] 16 mg/dL Normal 7-25 [facility] Comment on above: Order Comment: Reaso n for Exam Severe obesity (BMI >= 40);PCOS (polycystic ovarian syndrome NON FASTING Performed By: #### A POB, LIPA #### [facility] , #### CMP, A1C WTH eA #### [facility] [address] Creatinine [Mass/volume] in Serum or PlasmaOrdered By: Celio Mullins on 07-01-2023 Creatinine [Mass/Vol] 0.64 mg/dL 0.60-1.20 [facility] Globulin Calc (S) [Mass/Vol] Ordered By: Celio Mullins on 07-01-2023 Globulin (S) [Mass/Vol] 3.2 g/dL [facility] Glucose [Mass/volume] in Ser um or PlasmaOrdered By: Celio Mullins on 07-01-2023 Glucose [Mass/Vol] 95 mg/dL 70-100 [facility] Comment on above: ADA recommended refe rence rangeRandom Glucose Reference Range is dependent on time and content of last meal. Glucose of more than 200 mg/dL in a nonstressed, ambulatory subject supports the diagnosis of Diabetes Mellitus. Glucose mean value [Mass/vol ume] in Blood Estimated from glycated hemoglobinOrdered By: Celio Mullins on 07-01-2023 Average glucose Estimated from glycated hemoglobin (Bld) [Mass/Vol] 117 mg/dL [facility] Hemoglobin A1c percentageOrd ered By: Celio Mullins on 07-01-2023 HbA1c (Bld) [Mass fraction] 5.7 % 4.3-5.6 [facility] Comment on above: Increased risk for d iabetes: 5.7 - 6.4diabetes: >6.4glycemic control for adults with diabetes: <7.0 Lipoprotein (a)on 07-01-2023 Lipoprotein a [Mass/Vol] 13.0 mg/dL Normal <75.0 [facility] Comment on above: Order [...] factors on Lp(a) across ethnicities. Performed at: [facility] [place] [address] [employer] Security Manager: Cassius Zhong PhD, Phone: [phone] Performed By: #### A POB, LIPA #### [facility] , #### CMP, A1C WTH eA #### [address] No Panel InformationOrdered By: Celio Mullins on 07-01-2023 Estimated GFR (CKD-EPI) > 60.0 mL/Min [facility] Creatinine Clearance (Chem N/A [facility] Potassium [Moles/volume] in Serum or PlasmaOrdered By: Celio Mullins on 07-01-2023 Potassium [Moles/Vol] 3.8 mmol/L 3.5-5.1 [facility] Protein [Mass/volume] in Ser um or PlasmaOrdered By: Celio Mullins on 07-01-2023 Protein [Mass/Vol] 7.8 g/dL 6.4-8.9 [facility] Serum or plasma albumin/glob ulin mass ratioOrdered By: Celio Mullins on 07-01-2023 Albumin/Globulin [Mass ratio] 1.4 {ratio} [facility] Serum or plasma anion gap de terminationOrdered By: Celio Mullins on 07-01-2023 Anion gap [Moles/Vol] 11.5 mmol/L 6.0-15.0 [facility] Serum or plasma lipoprotein a measurement (moles/volume)Ordered By: Celio Mullins on 07-01-2023 Lipoprotein a [Moles/Vol] 13.0 nmol/L <75.0 [facility] Comment on above: Note: Values greater than or equal to 75.0 nmol/L may indicate an independent risk factor for CHD, but must be evaluated with caution when applied to non- populations due to the influence of genetic factors on Lp(a) across ethnicities.Performed at: [facility] [place] [id number] Director: Cassius Zhong PhD, Phone: [phone] Sodium [Moles/volume] in Ser um or PlasmaOrdered By: Celio Mullins on 07-01-2023 Sodium [Moles/Vol] 138 mmol/L 136-145 [facility] Urea nitrogen [Mass/volume] in Serum or PlasmaOrdered By: Celio Mullins on 07-01-2023 Urea nitrogen [Mass/Vol] 16 mg/dL 7-25 [facility] COVID Quick Testingon 2022 Result Negative [employer] Other SARS-CoV-2 (COVID-19) RNA NA A+probe Ql (Resp)on 02-11-2023 SARS-CoV-2 (COVID-19) RNA SURI+probe Ql (Unsp spec) Negative [employer] Other DHEA-SULFATEon 01-01-2023 DHEA-Sulfate 95.3 ug/dL Normal 84.8-378.0 [facility] Comment on above: Performed By: #### D RIMA #### [facility] [address] [place] [address] Dr. Kaushik Palomares FSHon 01-01-2023 FSH 4.6 mIU/mL Normal [facility] Comment on above: Result Comment: Adul t Female: Follicular phase 3.5 - 12.5 Ovulation phase 4.7 - 21.5 Luteal phase 1.7 - 7.7 Postmenopausal 25.8 - 134.8 Performed By: #### C BC #### [facility] [address] [place] [address] Dr. Kaushik Palomares LUTEINIZING HORMONE (LH)on 01-01-2023 LH 3.5 mIU/mL Normal [facility] Comment on above: Result Comment: Adul t Female: Follicular phase 2.4 - 12.6 Ovulation phase 14.0 - 95.6 Luteal phase 1.0 - 11.4 Postmenopausal 7.7 - 58.5 Performed By: #### L BCL #### [facility] [address] [place] [address] Dr. Kaushik Palomares CBC AUTO DIFFon 12-31-2022 BASO # 0.1 103/ul Normal 0.0-0.1 [facility] Comment on above: Performed By: #### C BC #### [facility] [address] [place] [address] Dr. Kaushik Palomares Basophils/100 WBC (Bld) 0.8 % Normal 0.2-2.0 [facility] Comment on above: Performed By: #### C BC #### [facility] [address] [place] [address] Dr. Kaushik Palomares EO # 0.1 103/ul Normal 0.0-0.7 [facility] Comment on above: Performed By: #### C BC #### [facility] [address] [place] [address] Dr. Kaushik Palomares Eosinophils/100 WBC (Bld) 1.7 % Normal 0.9-7.0 [facility] Comment on above: Performed By: #### C BC #### [facility] [address] [place] [address] Dr. Kaushik Palomares Erythrocyte distribution width (RBC) [Ratio] 12.8 % Normal 11.0-15.0 [facility] Comment on above: Performed By: #### C BC #### [facility] [address] [place] [address] Dr. Kaushik Palomares Hematocrit (Bld) [Volume fraction] 33.0 % Critically low 36.0-48.0 [facility] Comment on above: Performed By: #### C BC #### [facility] [address] [place] [address] Dr. Kaushik Palomares Hemoglobin (Bld) [Mass/Vol] 11.0 g/dL Critically low 12.0-16.0 [facility] Comment on above: Performed By: #### C BC #### [facility] [address] [place] [address] Dr. Kaushik Palomares IG # 0.03 10e3/ul Normal 0.00-0.03 [facility] Comment on above: Performed By: #### C BC #### [facility] [address] [place] [address] Dr. Kaushik Palomares IG % 0.5 % Normal 0.0-0.5 [facility] Comment on above: Performed By: #### C BC #### [facility] [address] [place] [address] Dr. Kaushik Palomares LYMPH # 2.4 103/ul Normal 1.2-3.8 [facility] Comment on above: Performed By: #### C BC #### [facility] [address] [place] [address] Dr. Kaushik Palomares Lymphocytes/100 WBC (Bld) 36.6 % Normal 20.5-60.0 [facility] Comment on above: Performed By: #### C BC #### [facility] [address] [place] [address] Dr. Kaushik Palomares MANUAL DIFF REQ NO Normal [facility] Comment on above: Performed By: #### C BC #### [facility] [address] [place] [address] Dr. Kaushik Palomares MCH (RBC) [Entitic mass] 29.0 pg Normal 26.7-34.0 [facility] Comment on above: Performed By: #### C BC #### [facility] [address] [place] [address] Dr. Kaushik Palomares MCHC (RBC) [Mass/Vol] 33.3 g/dL Normal 29.9-35.2 [facility] Comment on above: Performed By: #### C BC #### [facility] [address] [place] [address] Dr. Kaushik Palomares MCV (RBC) [Entitic vol] 87.1 fL Normal 81.0-99.0 [facility] Comment on above: Performed By: #### C BC #### [facility] [address] [place] [address] Dr. Kaushik Palomares MONO # 0.2 103/ul Critically low 0.3-0.8 [facility] Comment on above: Performed By: #### C BC #### [facility] [address] [place] [address] Dr. Kaushik Palomares Monocytes/100 WBC (Bld) 3.6 % Normal 1.7-12.0 [facility] Comment on above: Performed By: #### C BC #### [facility] [address] [place] [address] Dr. Kaushik Palomares NEUT # 3.7 103/ul Normal 1.4-6.5 [facility] Comment on above: Performed By: #### C BC #### [facility] [address] [place] [address] Dr. Kaushik Palomares Neutrophils/100 WBC (Bld) 56.8 % Normal 43.0-75.0 [facility] Comment on above: Performed By: #### C BC #### [facility] [address] [place] [address] Dr. Kaushik Palomares Platelet mean volume (Bld) [Entitic vol] 9.8 fL Normal 9.5-13.5 [facility] Comment on above: Performed By: #### C BC #### [facility] [address] [place] [address] Dr. Kaushik Palomares PLT 234 103/ul Normal 150-450 [facility] Comment on above: Performed By: #### C BC #### [facility] [address] [place] [address] Dr. Kaushik Palomares RBC 3.79 106/ul Critically low 4.20-5.40 [facility] Comment on above: Performed By: #### C BC #### [facility] [address] [place] [address] [address] Kaushik Palomares WBC 6.5 103/ul Normal 4.0-11.0 [facility] Comment on above: Performed By: #### C BC #### [facility] [address] [place] [address] Dr. Kaushik Palomares FREE T4on 12-31-2022 Free T4 [Mass/Vol] 0.79 ng/dL Normal 0.76-1.46 [facility] Comment on above: Performed By: #### F T4 #### [facility] [address] [place] [address] Dr. Kaushik Palomares GLYCOHEMOGLOBIN A1Con 2022 ADA RECOMMENDATION SEE BELOW Normal [facility] Comment on above: Result Comment: ADA RECOMMENDED LIMIT 4.0 - 6.0 ADA THERAPEUTIC TARGET < 7.0 ACTION SUGGESTED > 7.0 Performed By: #### A 1C #### [facility] [address] [place] [address] Dr. Kaushik Palomares Glucose [Mass/Vol] 111 mg/dL Normal [facility] Comment on above: Performed By: #### A 1C #### [facility] [address] [place] [address] Dr. Kaushik Palomares HbA1c (Bld) [Mass fraction] 5.5 % Normal 4.5-6.2 [facility] Comment on above: Performed By: #### A 1C #### [facility] [address] [place] [address] Dr. Kaushik Palomares TSHon 12-31-2022 TSH 1.114 uIU/mL Normal 0.358-3.740 [facility] Comment on above: Performed By: #### C BC #### [facility] [address] [place] [address] Dr. Kaushik Palomares US PELVIS AND TRANSVAGon [...] by: SUGEY MACDONALD Date: 2022-11-26 15:58 Normal [facility] XR SACRUM_COCCYXon 3 XR SACRUM_COCCYX EXAMINATION: [...] SUGEY MACDONALD Date: 2022-11-08 10:01 Normal [facility] PAP ACOG PANEL 2: 30 to 65on 11-05-2022 . . Normal [facility] Comment on above: Result Comment: Perf ormed at: WB Performed By: #### C BC #### [facility] [address] [place] [address] Dr. Kaushik Palomares Age Gdln ACOG Testing 30-65 Normal [facility] Comment on above: Performed By: #### C BC #### [facility] [address] [place] [address] [address] Kaushik Palomares DIAGNOSIS: Comment Normal [facility] Comment on above: Result Comment: NEGA TIVE FOR INTRAEPITHELIAL LESION OR MALIGNANCY. Performed at: WB Performed By: #### C BC #### [facility] [address] [place] [address] [address] Kaushik Palomares HPV Aptima Negative Normal Negative [facility] Comment on above: Result Comment: This nucleic acid amplification test detects fourteen high-risk HPV types (16,18,31,33,35,39,45,51,52,56,58,59,66,68) without differentiation. Performed at: =G Performed By: #### C BC #### [facility] [address] [place] [address] Dr. Kaushik Palomares HPV Genotype Reflex Comment Normal [facility] Comment on above: Result Comment: Crit eria not met, HPV Genotype not performed. Performed at: WB Performed By: #### C BC #### [facility] [address] [place] [address] [address] Kaushik Palomares Methodology: Comment Normal [facility] Comment on above: Result Comment: This liquid based ThinPrep(R) pap test was screened with the use of an image guided system. Performed at: WB Performed By: #### C BC #### [facility] [address] [place] [address] Dr. Kaushik Palomares Note: Comment Normal [facility] Comment on above: Result Comment: The [...] WB Performed By: #### C BC #### [facility] [address] [place] [address] [address] Kaushik Palomares Performed by: Comment Normal [facility] Comment on above: Result Comment: Robi Graham, Radiator Mechanic (ASCP) Performed at: WB Performed By: #### C BC #### [facility] [address] [place] [address] Dr. Kaushik Palomares Specimen adequacy: Comment Normal [facility] Comment on above: Result Comment: Sati sfactory for evaluation. Endocervical and/or squamous metaplastic cells (endocervical component) are present. Performed at: WB Performed By: #### C BC #### [facility] [address] [place] [address] Dr. Kaushik Palomares COVID/FLU RT-PCRon 2 SARS-CoV-2 (COVID-19) RNA SURI+probe Ql (Unsp spec) Negative [employer] Other COVID/FLU RT-PCR Negative [employer] Other HCG-BETA SUBUNIT QUANTon hCG,Beta Subunit,Qnt,Serum <1 Normal [facility] Comment on above: Result Comment: Fema le (Non-) 0 - 5 (Postmenopausal) 0 - 8 . Female () Weeks of Gestation 3 6 - 71 4 10 - 750 5 217 - 9204 6 158 - 37870 7 1911 -[id number] 8 28211 -[id number] 9 01322 -[id number] 10 65227 -775357 12 53266 -529252 14 81844 - 33287 15 42987 - 11105 16 0611 - 88048 17 8536 - 64069 18 7086 - 57761 Rg ECLIA methodology Performed By: #### H CGSUB #### [facility] [address] [place] [address] Dr. Kaushik Palomares T4 LABCORPon 01-22-2022 T4 [Mass/Vol] 7.8 ug/dL Normal 4.5-12.0 [facility] Comment on above: Performed By: #### T 4LC #### [facility] [address] [place] [address] Dr. Kaushik Palomares CBC AUTO DIFFon 01-21-2022 BASO # 0.1 103/ul Normal 0.0-0.1 [facility] Comment on above: Performed By: #### C BC #### [facility] [address] [place] [address] Dr. Kaushik Palomares Basophils/100 WBC (Bld) 0.6 % Normal 0.2-2.0 [facility] Comment on above: Performed By: #### C BC #### [facility] [address] [place] [address] Dr. Kaushik Palomares EO # 0.1 103/ul Normal 0.0-0.7 [facility] Comment on above: Performed By: #### C BC #### [facility] [address] [place] [address] Dr. Kaushik Palomares Eosinophils/100 WBC (Bld) 1.2 % Normal 0.9-7.0 [facility] Comment on above: Performed By: #### C BC #### [facility] [address] [place] [address] Dr. Kaushik Palomares Erythrocyte distribution width (RBC) [Ratio] 13.3 % Normal 11.0-15.0 [facility] Comment on above: Performed By: #### C BC #### [facility] [address] [place] [address] Dr. Kaushik Palomares Hematocrit (Bld) [Volume fraction] 40.0 % Normal 36.0-48.0 [facility] Comment on above: Performed By: #### C BC #### [facility] [address] [place] [address] Dr. Kaushik Palomares Hemoglobin (Bld) [Mass/Vol] 12.7 g/dL Normal 12.0-16.0 [facility] Comment on above: Performed By: #### C BC #### [facility] [address] [place] [address] Dr. Kaushik Palomares IG # 0.02 10e3/ul Normal 0.00-0.03 [facility] Comment on above: Performed By: #### C BC #### [facility] [address] [place] [address] Dr. Kaushik Palomares IG % 0.2 % Normal 0.0-0.5 [facility] Comment on above: Performed By: #### C BC #### [facility] [address] [place] [address] Dr. Kaushik Palomares LYMPH # 3.0 103/ul Normal 1.2-3.8 [facility] Comment on above: Performed By: #### C BC #### [facility] [address] [place] [address] Dr. Kaushik Palomares Lymphocytes/100 WBC (Bld) 32.9 % Normal 20.5-60.0 [facility] Comment on above: Performed By: #### C BC #### [facility] [address] [place] [address] Dr. Kaushik Palomares MANUAL DIFF REQ NO Normal [facility] Comment on above: Performed By: #### C BC #### [facility] [address] [place] [address] Dr. Kaushik Palomares MCH (RBC) [Entitic mass] 28.5 pg Normal 26.7-34.0 [facility] Comment on above: Performed By: #### C BC #### [facility] [address] [place] [address] Dr. Kaushik Palomares MCHC (RBC) [Mass/Vol] 31.8 g/dL Normal 29.9-35.2 [facility] Comment on above: Performed By: #### C BC #### [facility] [address] [place] [address] Dr. Kaushik Palomares MCV (RBC) [Entitic vol] 89.7 fL Normal 81.0-99.0 [facility] Comment on above: Performed By: #### C BC #### [facility] [address] [place] [address] Dr. Kauhsik Palomares MONO # 0.5 103/ul Normal 0.3-0.8 [facility] Comment on above: Performed By: #### C BC #### [facility] [address] [place] [address] Dr. Kaushik Palomares Monocytes/100 WBC (Bld) 5.1 % Normal 1.7-12.0 [facility] Comment on above: Performed By: #### C BC #### [facility] [address] [place] [address] Dr. Kaushik Palomares NEUT # 5.4 103/ul Normal 1.4-6.5 [facility] Comment on above: Performed By: #### C BC #### [facility] [address] [place] [address] Dr. Kaushik Palomares Neutrophils/100 WBC (Bld) 60.0 % Normal 43.0-75.0 [facility] Comment on above: Performed By: #### C BC #### [facility] [address] [place] [address] Dr. Kaushik Palomares Platelet mean volume (Bld) [Entitic vol] 9.3 fL Critically low 9.5-13.5 [facility] Comment on above: Performed By: #### C BC #### [facility] [address] [place] [address] Dr. Kaushik Palomares PLT 221 103/ul Normal 150-450 [facility] Comment on above: Performed By: #### C BC #### [facility] [address] [place] [address] Dr. Kaushik Palomares RBC 4.46 106/ul Normal 4.20-5.40 [facility] Comment on above: Performed By: #### C BC #### [facility] [address] [place] [address] Dr. Kaushik Palomares WBC 9.0 103/ul Normal 4.0-11.0 [facility] Comment on above: Performed By: #### C BC #### [facility] [address] [place] [address] Dr. Kaushik Palomares GLYCOHEMOGLOBIN A1Con 2021 ADA RECOMMENDATION SEE BELOW Normal [facility] Comment on above: Result Comment: ADA RECOMMENDED LIMIT 4.0 - 6.0 ADA THERAPEUTIC TARGET < 7.0 ACTION SUGGESTED > 7.0 Performed By: #### C BC #### [facility] [address] [place] [address] Dr. Kaushik Palomares Glucose [Mass/Vol] 94 mg/dL Normal [facility] Comment on above: Performed By: #### C BC #### [facility] [address] [place] [address] Dr. Kaushik Palomares HbA1c (Bld) [Mass fraction] 4.9 % Normal 4.5-6.2 [facility] Comment on above: Performed By: #### C BC #### [facility] [address] [address] [address] Kaushik Palomares LIPID PROFILEon 01-21-2022 CHOL-HDL RATIO NORM SEE BELOW Normal [facility] Comment on above: Result Comment: 3.3 - 4.4 LOW RISK 4.4 - 7.1 AVERAGE RISK 7.1 - 11.0 MODERATE RISK >11.0 HIGH RISK Performed By: #### L IPID, CMP, TSH #### [facility] [address] [address] [address] Kaushik Palomares Cholesterol [Mass/Vol] 168 mg/dL Normal <=200 [facility] Comment on above: Performed By: #### L IPID, CMP, TSH #### [facility] [address] [address] [address] Kaushik Palomares Cholesterol in HDL [Mass/Vol] 41 mg/dL Normal 40-60 [facility] Comment on above: Performed By: #### L IPID, CMP, TSH #### [facility] [address] [address] [address] Kaushik Palomares Cholesterol in LDL [Mass/Vol] 90.2 mg/dL Normal [facility] Comment on above: Performed By: #### L IPID, CMP, TSH #### [facility] [address] [address] [address] Kaushik Palomares Cholesterol.total/Mali sterol in HDL [Mass ratio] 4.1 {ratio} Normal [facility] Comment on above: Performed By: #### L IPID, CMP, TSH #### [facility] [address] [address] [address] Kaushik Palomares HDL NORMAL > or = 60 mg/dl - LO W CARDIOVASCULAR RISK <40 mg/dl - HIGH CARDIOVASCULAR RISK Normal [facility] Comment on above: Performed By: #### L IPID, CMP, TSH #### [facility] [address] [address] [address] Kaushik Palomares LDL CALC NORMAL SEE BELOW Normal [facility] Comment on above: Result Comment: <100 mg/dl OPTIMAL 100 - 129 mg/dl NEAR OR ABOVE OPTIMAL 130 - 159 mg/dl BORDERLINE HIGH 160 - 189 mg/dl HIGH >190 mg/dl VERY HIGH Performed By: #### L IPID, CMP, TSH #### [facility] [address] [address] [address] Kaushik Palomares Triglyceride [Mass/Vol] 184 mg/dL Critically high <=150 [facility] Comment on above: Performed By: #### L IPID, CMP, TSH #### [facility] [address] [address] [address] Kaushik Palomares VLDL CALC 36.8 mg/dL Normal [facility] Comment on above: Performed By: #### L IPID, CMP, TSH #### [facility] [address] [place] [address] Dr. Kaushik Palomares MICROALBUMIN, RAND URon 06- mALB 2.0 mg/L Normal <=30.0 [facility] Comment on above: Performed By: #### C BC #### [facility] [address] [place] [address] Dr. Kaushik Palomares PROF 14(COMP METB)on 022 Albumin [Mass/Vol] 3.7 g/dL Normal 3.4-5.0 [facility] Comment on above: Performed By: #### L IPID, CMP, TSH #### [facility] [address] [place] [address] Dr. Kaushik Palomares Albumin/Globulin [Mass ratio] 0.9 {ratio} Normal [facility] Comment on above: Performed By: #### L IPID, CMP, TSH #### [facility] [address] [address] [address] Kaushik Palomares ALP [Catalytic activity/Vol] 53 U/L Normal 46-116 [facility] Comment on above: Performed By: #### L IPID, CMP, TSH #### [facility] [address] [address] [address] Kaushik Palomares ALT [Catalytic activity/Vol] 44 U/L Normal 14-59 [facility] Comment on above: Performed By: #### L IPID, CMP, TSH #### [facility] [address] [address] [address] Kaushik Palomares Anion gap [Moles/Vol] 6.8 mmol/L Normal [facility] Comment on above: Performed By: #### L IPID, CMP, TSH #### [facility] [address] [address] [address] Kaushik Palomares AST [Catalytic activity/Vol] 22 U/L Normal 15-37 [facility] Comment on above: Performed By: #### L IPID, CMP, TSH #### [facility] [address] [address] [address] Kaushik Palomares Bilirubin [Mass/Vol] 0.3 mg/dL Normal 0.2-1.0 [facility] Comment on above: Performed By: #### L IPID, CMP, TSH #### [facility] [address] [place] [address] Dr. Kaushik Palomares Calcium [Mass/Vol] 9.2 mg/dL Normal 8.5-10.1 [facility] Comment on above: Performed By: #### L IPID, CMP, TSH #### [facility] [address] [place] [address] Dr. Kuashik Palomares Chloride [Moles/Vol] 102 mmol/L Normal 98-107 [facility] Comment on above: Performed By: #### L IPID, CMP, TSH #### [facility] [address] [address] [address] Kaushik Palomares CO2 [Moles/Vol] 31.4 mmol/L Normal 21.0-32.0 [facility] Comment on above: Performed By: #### L IPID, CMP, TSH #### [facility] [address] [place] [address] Dr. Kaushik Palomares Creatinine [Mass/Vol] 0.71 mg/dL Normal 0.55-1.02 [facility] Comment on above: Performed By: #### L IPID, CMP, TSH #### [facility] [address] [address] [address] Kaushik Palomares EGFR-AF AZERBAIJANI >60 Normal >=60 [facility] Comment on above: Performed By: #### L IPID, CMP, TSH #### [facility] [address] [address] [address] Kaushik Palomares EGFR-NON AF AZERBAIJANI >60 Normal >=60 [facility] Comment on above: Performed By: #### L IPID, CMP, TSH #### [facility] [address] [address] [address] Kaushik Palomares Globulin (S) [Mass/Vol] 4.2 g/dL Normal T [facility] Comment on above: Performed By: #### L IPID, CMP, TSH #### [facility] [address] [place] [address] Dr. Kaushik Palomares Glucose [Mass/Vol] 93 mg/dL Normal 74-106 [facility] Comment on above: Performed By: #### L IPID, CMP, TSH #### [facility] [address] [place] [address] Dr. Kaushik Palomares Potassium [Moles/Vol] 4.2 mmol/L Normal 3.5-5.1 [facility] Comment on above: Performed By: #### L IPID CMP, TSH #### [facility] [address] [place] [address] Dr. Kaushik Palomares Protein [Mass/Vol] 7.9 g/dL Normal 6.4-8.2 [facility] Comment on above: Performed By: #### L IPID, CMP, TSH #### [facility] [address] [place] [address] Dr. Kaushik Palomares Sodium [Moles/Vol] 136 mmol/L Normal 136-145 [facility] Comment on above: Performed By: #### L IPID, CMP, TSH #### [facility] [address] [place] [address] Dr. Kaushik Palomares Urea nitrogen [Mass/Vol] 11.0 mg/dL Normal 7.0-18.0 [facility] Comment on above: Performed By: #### L IPID, CMP, TSH #### [facility] [address] [place], [place] [address] Dr. Kaushik Palomares Urea nitrogen/Creatinine [Mass ratio] 15.5 mg/mg Normal [facility] Comment on above: Performed By: #### L IPID, CMP, TSH #### [facility] [address] [place], [place] [address] Dr. Kaushik Palomares TSHon 01-21-2022 TSH 1.298 uIU/mL Normal 0.358-3.740 [facility] Comment on above: Performed By: #### C BC #### [facility] [address] [address] [address] Kaushik Palomares TSH RANGE SEE BELOW Normal [facility] Comment on above: Result Comment: <0.3 4 UIU/ml HYPERTHYROID 0.34-5.60 UIU/ml EUTHYROID >5.60 UIU/ml HYPOTHYROID Performed By: #### C BC #### [facility] [address] [address] [address] Kaushik Palomares COVID Quick Testingon 2020 Result Negative [employer] Other Quick Strepon 06-17-2021 S. pyogenes Org specific cx Ql (Throat) Negative [employer] Other Quick Strep [employer] Other Urinalysis - AUTOMATEDon Appearance (U) cloudy [employer] Other Bilirubin Ql (U) Negative [employer] Other Color (U) yellow [employer] Other Glucose Ql (U) Negative [employer] Other Hemoglobin Ql (U) large [employer] Other Ketones Ql (U) Negative [employer] Other Leukocyte esterase Test strip Ql (U) trace [employer] Other Nitrite Ql (U) Positive [employer] Other pH (U) 5.5 [pH] [employer] Other Protein Ql (U) 100 [employer] Other Specific gravity (U) [Rel density] 1.025 [employer] Other Urobilinogen (U) [Mass/Vol] 0.2 mg/dL [employer] Other Urinalysis - AUTOMATED No rt [employer] Other Urine Cultureon 05-31-2021 Urine Culture >100,000 [employer] Other Urine Culture <16 [employer] Other Urine Culture >16 [employer] Other Urine Culture <4 [employer] Other Urine Culture 8 [employer] Other Urine Culture <2 [employer] Other Urine Culture <1 [employer] Other Urine Culture >2 [employer] Other Urine Culture <0.5 [employer] Other Urine Culture >8 [employer] Other Urine Culture >4 [employer] Other Urine Culture <32 [employer] Other Urine Culture >2/38 [employer] Other Vital Signs Date Time Vital Sign Value 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 10-01-2023 09:20-0500 Body height 162.56 cm ROSITA Marc Work Phone: [facility] 10-01-2023 09:20-0500 Body mass index (BMI) [Ratio] 53.6 kg/m2 ROSITA Marc Work Phone: [facility] 10-01-2023 09:20-0500 Body weight 141.69 kg [employer]VER[employer] BUFFING MACHINE OPERATOR Manisha Denyrbacher Work Phone: [facility] 10-01-2023 09:20-0500 Diastolic blood pressure 75 mm[Hg] ROSITA Thaonifer Denyrbacher Work Phone: [facility] 10-01-2023 09:20-0500 Heart rate 85 /min SILVERWARE BUFFING MACHINE OPERATORJosé Miguel ThaoManisha Denyrbacher Work Phone: [facility] 10-01-2023 09:20-0500 Respiratory rate 18 /min [employer]ILVERWARE BUFFING MACHINE OPERATORJosé Miguel ColladoManisha Denyrbacher Work Phone: [facility] 10-01-2023 09:20-0500 SaO2% (BldA) [Mass fraction] 99 % [employer] BUFFING MACHINE OPERATORJosé Miguel ThaoManisha Denyrbacher Work Phone: [facility] 10-01-2023 09:20-0500 Systolic blood pressure 123 mm[Hg] ROSITA Thaonifer Denyrbacher Work Phone: [facility] 09-03-2023 08:00-0500 Body height 162.56 cm ROSITA Colladofer Denyrbacher Work Phone: [facility] 09-03-2023 08:00-0500 Body weight 138.79 kg SILVERWARE BUFFING MACHINE OPERATORJosé Miguel Barclayrbacher Work Phone: [facility] 09-03-2023 08:00-0500 Diastolic blood pressure 78 mm[Hg] ROSITA Barclayrbacher Work Phone: [facility] 09-03-2023 08:00-0500 Systolic blood pressure 118 mm[Hg] ROSITA Colladofer Denyrbacher Work Phone: [facility] 08-19-2023 09:45-0500 Body height 162.56 cm Nely Cruz Other [facility] 08-13-2023 14:00-0500 Body height 162.56 cm Manisha Marc Other [facility] 08-13-2023 14:00-0500 Body mass index (BMI) [Ratio] 52.35 kg/m2 Manisha Marc Other [employer] Other 08-13-2023 14:00-0500 Body weight 138.35 kg Manisha Marc Other [employer] Other 08-13-2023 14:00-0500 Body weight 138.34 kg ROSITA Marc Work Phone: [facility] 08-13-2023 14:00-0500 Diastolic blood pressure 80 mm[Hg] Manisha Marc Other [facility] 08-13-2023 14:00-0500 SaO2% (BldA) [Mass fraction] 98 % Manisha Marc Other [employer] Other 08-13-2023 14:00-0500 Systolic blood pressure 114 mm[Hg] Manisha Marc Other [facility] 07-15-2023 07:45-0500 Body height 162.56 cm Celio Mullins Other [facility] 07-15-2023 07:45-0500 Body mass index (BMI) [Ratio] 52.98 kg/m2 Celio Mullins Other [employer] Other 07-15-2023 07:45-0500 Body weight 140.03 kg Celio Mullins Other [employer] Other 07-15-2023 07:45-0500 Body weight 140.02 kg ROSITA Marc Work Phone: [facility] 07-15-2023 07:45-0500 Diastolic blood pressure 66 mm[Hg] Celio Mullins Other [facility] 07-15-2023 07:45-0500 Respiratory rate 18 /min Celio Mullins Other [employer] [facility] [employer] Other 07-15-2023 07:45-0500 SaO2% (BldA) [Mass fraction] 98 % Celio Mullins Other [facility] [employer] Other 07-15-2023 07:45-0500 Systolic blood pressure 112 mm[Hg] Celio Mullins Other [facility] 07-07-2023 11:15-0500 Body height 162.56 cm Michelle Ernandez Other [facility] 07-07-2023 11:15-0500 Body mass index (BMI) [Ratio] 52.69 kg/m2 Michelle Ernandez Other [employer] [facility] [employer] Other 07-07-2023 11:15-0500 Body temperature 98 [degF] Michelle Ernandez Other [employer] [facility] [employer] Other 07-07-2023 11:15-0500 Body weight 139.26 kg Michelle Ernandez Other [employer] Other 07-07-2023 11:15-0500 Body weight 139.25 kg ROSITA Marc Work Phone: [facility] 07-07-2023 11:15-0500 Respiratory rate 20 /min iMchelle Haynesmond Other [employer] Other 07-07-2023 11:15-0500 SaO2% (BldA) [Mass fraction] 98 % Michelle Ernandez Other [employer] Other 06-29-2023 10:20-0500 Body height 162.56 cm Michelle Ernandez Other [employer] Other 06-29-2023 10:20-0500 Body mass index (BMI) [Ratio] 53.03 kg/m2 Michelle Haynesmond Other [employer] Other 06-29-2023 10:20-0500 Body temperature 99.7 [degF] Michelle Ernandez Other [employer] Other 06-29-2023 10:20-0500 Body weight 140.16 kg Michelle Ernandez Other [employer] Other 06-29-2023 10:20-0500 Respiratory rate 19 /min Michelle Ernandez Other [employer] Other 06-29-2023 10:20-0500 SaO2% (BldA) [Mass fraction] 98 % Michelle Ernandez Other [employer] Other 06-11-2023 15:30-0400 Body height 162.56 cm Manisha Marc Other [employer] Other 06-11-2023 15:30-0400 Body mass index (BMI) [Ratio] 53.79 kg/m2 Manisha Marc Other [employer] Other 06-11-2023 15:30-0400 Body weight 142.16 kg Manisha Marc Other [employer] Other 06-11-2023 15:30-0400 Diastolic blood pressure 62 mm[Hg] Manisha Tari Other [employer] Other 06-11-2023 15:30-0400 SaO2% (BldA) [Mass fraction] 99 % Manisha Barclayfani Other [employer] Other 06-11-2023 15:30-0400 Systolic blood pressure 126 mm[Hg] Manisha Tari Other [employer] Other 05-06-2023 13:40-0400 Body height 162.56 cm Casandra Hassan Other [employer] Other 05-06-2023 13:40-0400 Body mass index (BMI) [Ratio] 53.65 kg/m2 Casandra Hassan Other [employer] Other 05-06-2023 13:40-0400 Body temperature 98.4 [degF] Casandra Hassan Other [employer] Other 05-06-2023 13:40-0400 Body weight 141.8 kg Casandra Hassan Other [employer] Other 05-06-2023 13:40-0400 Diastolic blood pressure 81 mm[Hg] Casandra Hassan Other [employer] Other 05-06-2023 13:40-0400 Respiratory rate 18 /min Casandra Hassan Other [employer] Other 05-06-2023 13:40-0400 SaO2% (BldA) [Mass fraction] 95 % Casandra Hassan Other [employer] Other 05-06-2023 13:40-0400 Systolic blood pressure 134 mm[Hg] Casandra Sonya Other [employer] Other 04-30-2023 08:30-0400 Body height 162.56 cm Manisha Marc Other [employer] Other 04-30-2023 08:30-0400 Body mass index (BMI) [Ratio] 53.86 kg/m2 Manisha Marc Other [employer] Other 04-30-2023 08:30-0400 Body weight 142.34 kg Manisha Marc Other [employer] Other 04-30-2023 08:30-0400 Diastolic blood pressure 82 mm[Hg] Manisha Marc Other [employer] Other 04-30-2023 08:30-0400 SaO2% (BldA) [Mass fraction] 100 % Manisha Marc Other [employer] Other 04-30-2023 08:30-0400 Systolic blood pressure 120 mm[Hg] Manisha Marc Other [employer] Other 04-29-2023 07:00-0400 Body height 162.56 cm Nely Cruz Other [employer] Other 04-29-2023 07:00-0400 Body mass index (BMI) [Ratio] 54.41 kg/m2 Nely Fitt Other [employer] Other 04-29-2023 07:00-0400 Body weight 143.79 kg Nely Cruz Other [employer] Other 03-25-2023 13:45-0400 Body height 162.56 cm Celio Mullins Other [employer] Other 03-25-2023 13:45-0400 Body mass index (BMI) [Ratio] 55.45 kg/m2 Celio Mullins Other [employer] Other 03-25-2023 13:45-0400 Body weight 146.56 kg Celio Mullins Other [employer] Other 03-25-2023 13:45-0400 Diastolic blood pressure 57 mm[Hg] Celio Mullins Other [employer] Other 03-25-2023 13:45-0400 Respiratory rate 18 /min Celio [employer] Other [employer] Other 03-25-2023 13:45-0400 SaO2% (BldA) [Mass fraction] 97 % Celio Mullins Other [employer] Other 03-25-2023 13:45-0400 Systolic blood pressure 106 mm[Hg] Celio Mullins Other [employer] Other 02-11-2023 12:15-0400 Body height 163.83 cm Casandra Hassan Other [employer] Other 02-11-2023 12:15-0400 Body mass index (BMI) [Ratio] 54.88 kg/m2 Casandra Hassan Other [employer] Other 02-11-2023 12:15-0400 Body temperature 98 [degF] Casandra Sonya Other [employer] Other 02-11-2023 12:15-0400 Body weight 147.33 kg Casandra Sonya Other [employer] Other 02-11-2023 12:15-0400 Diastolic blood pressure 85 mm[Hg] Casandra Sonya Other [employer] Other 02-11-2023 12:15-0400 Respiratory rate 18 /min Casandra Sonya Other [employer] Other 02-11-2023 12:15-0400 SaO2% (BldA) [Mass fraction] 98 % Casandra Sonya Other [employer] Other 02-11-2023 12:15-0400 Systolic blood pressure 128 mm[Hg] Casandramila Hassan Other [employer] Other 07-13-2022 11:15-0500 Body height 163.83 cm Michelle Haynesmond Other [employer] Other 07-13-2022 11:15-0500 Body mass index (BMI) [Ratio] 51.54 kg/m2 Michelle Haynesmond Other [employer] Other 07-13-2022 11:15-0500 Body temperature 96.6 [degF] Michelle Haynesmond Other [employer] Other 07-13-2022 11:15-0500 Body weight 138.35 kg Michelle Oma Other [employer] Other 07-13-2022 11:15-0500 Respiratory rate 18 /min Michelle Oma Other [employer] Other 07-13-2022 11:15-0500 SaO2% (BldA) [Mass fraction] 96 % Michelle Oma Other [employer] Other 07-06-2021 13:00-0500 Body height 163.83 cm Michelle Oma Other [employer] Other 07-06-2021 13:00-0500 Body mass index (BMI) [Ratio] 49 kg/m2 Michelle Oma Other [employer] Other 07-06-2021 13:00-0500 Body temperature 97.5 [degF] Michelle Oma Other [employer] Other 07-06-2021 13:00-0500 Body weight 131.54 kg Michelle Oma Other [employer] Other 07-06-2021 13:00-0500 SaO2% (BldA) [Mass fraction] 96 % Michelle Oma Other [employer] Other 06-17-2021 11:00-0400 Body height 163.83 cm Michelle Oma Other [employer] Other 06-17-2021 11:00-0400 Body mass index (BMI) [Ratio] 49.68 kg/m2 Michelle Oma Other [employer] Other 06-17-2021 11:00-0400 Body temperature 98.3 [degF] Michelle Oma Other [employer] Other 06-17-2021 11:00-0400 Body weight 133.36 kg Michelle Oma Other [employer] Other 06-17-2021 11:00-0400 Respiratory rate 18 /min Michelle Oma Other [employer] Other 06-17-2021 11:00-0400 SaO2% (BldA) [Mass fraction] 96 % Michelle Oma Other [employer] Other 05-31-2021 13:50-0400 Body height 163.83 cm Michelle Oma Other [employer] Other 05-31-2021 13:50-0400 Body mass index (BMI) [Ratio] 50.36 kg/m2 Michelle Oma Other [employer] Other 05-31-2021 13:50-0400 Body temperature 97.8 [degF] Michelle Oma Other [employer] Other 05-31-2021 13:50-0400 Body weight 135.17 kg Michelle Oma Other [employer] Other 05-31-2021 13:50-0400 Diastolic blood pressure 90 mm[Hg] Michelle Oma Other [employer] Other 05-31-2021 13:50-0400 Respiratory rate 18 /min Michelle Oma Other [employer] Other 05-31-2021 13:50-0400 SaO2% (BldA) [Mass fraction] 98 % Michelle Oma Other [facility] [employer] Other 05-31-2021 13:50-0400 Systolic blood pressure 150 mm[Hg] Michelle Oma Other [facility] [employer] Other Encounters Encounter Date Encounter Type Care Provider Facility Start: 10-01-2023 ambulatory Celio Mullins Facility :[facility] Start: 10-01-2023 End: 10-01-2023 ambulatory ROSITA Marc Work Phone: [facility] Work Phone: Start: 10-01-2023 End: 10-01-2023 Patient encounter procedure ROSITA Marc Work Phone: [facility] Work Phone: Start: 09-08-2023 End: 09-09-2023 ambulatory Bud Combs MD Facility:[facility] Start: 09-03-2023 End: 09-03-2023 Patient encounter procedure ROSITA Marc Work Phone: [facility]- Start: 08-19-2023 IBT FOR OBESITY GROU P 2-10 30M Nely Cruz [facility] Start: 08-19-2023 End: 08-19-2023 ambulatory Manisha Marc [facility] [employer] Other Start: 08-19-2023 Registered Recurring ROSITA Marc Work Phone: [facility] Work Phone: Start: 08-19-2023 End: 08-19-2023 Patient encounter procedure ROSITA Marc Work Phone: [facility] Work Phone: Start: 08-14-2023 ambulatory Manisha Su ility:[facility] Start: 08-13-2023 End: 08-13-2023 ambulatory Manisha Marc Other [employer] Other Start: 08-13-2023 Office outpatient vi sit 15 minutes Manisha Marc [facility] Start: 08-13-2023 End: 08-13-2023 Patient encounter procedure SILVERWARE BUFFING MACHINE OPERATORJosé Miguel Marc Work Phone: [facility] [facility] Work Phone: Start: 07-24-2023 End: 07-24-2023 ambulatory MELA SIBLEYEY Not Available Start: 07-21-2023 End: 07-22-2023 ambulatory Bud Combs MD Facility:[facility] Start: 07-19-2023 End: 07-19-2023 ambulatory Manisha Marc Facility:[facility] Start: 07-19-2023 End: 07-19-2023 ambulatory ROSITA Marc Work Phone: [facility] Work Phone: Start: 07-19-2023 End: 07-19-2023 Patient encounter procedure SILVERWARE BUFFING MACHINE OPERATORJosé Miguel Marc Work Phone: [facility]-Self Pay Exercise Program Start: 07-15-2023 End: 07-15-2023 ambulatory Celio Mullins Other [employer] Other Start: 07-15-2023 Follow-up encounter Celio Mullins [facility] Start: 07-15-2023 End: 07-15-2023 Patient encounter procedure ROSITA Marc [facility] Phone: [facility] Work Phone: Start: 07-07-2023 End: 07-07-2023 ambulatory Michelle Ernandez Other [employer] Other Start: 07-07-2023 Office outpatient vi sit 15 minutes Michellenawaf Ernandez [facility] Start: 07-07-2023 End: 07-07-2023 Patient encounter procedure ROSITA Marc Work Phone: [facility] Work Phone: Start: 07-03-2023 Registered Recurring SILVERWARE BUFFING MACHINE OPERATOR Layla Marc Work Phone: [facility] Start: 07-03-2023 End: 07-03-2023 ambulatory Manisha Marc Facility:[facility] Start: 07-03-2023 End: 07-03-2023 ambulatory ROSITA Marc Work Phone: [facility] Work Phone: Start: 07-03-2023 End: 07-03-2023 Patient encounter procedure SILVERWARE BUFFING MACHINE OPERATORJosé Miguel Marc Work Phone: [facility] [place] Work Phone: Start: 07-01-2023 End: 07-01-2023 ambulatory Manisha Marc Facility:[facility] Start: 07-01-2023 End: 07-01-2023 Patient encounter procedure ROSITA Marc Work Phone: [facility] [place] Work Phone: Start: 06-29-2023 End: 06-29-2023 ambulatory Michelle Oma Other [employer] Other Start: 06-29-2023 Office outpatient vi sit 15 minutes Michelle Moa [facility] Start: 06-17-2023 Registered Recurring SILVERWARE BUFFING MACHINE OPERATORJosé Miguel Marc Work Phone: [facility] Work Phone: Start: 06-11-2023 End: 06-11-2023 ambulatory Manisha Keaner Other [employer] Other Start: 06-11-2023 Office outpatient vi sit 25 minutes Manisha Tari [facility] Start: 05-06-2023 End: 05-06-2023 ambulatory Casandra Hassan Other [employer] Other Start: 05-06-2023 Office outpatient vi sit 10 minutes Casandra Sonya [facility] Start: 05-01-2023 End: 05-01-2023 ambulatory Manisha Tari Other [employer] Other Start: 05-01-2023 Telephone encounter Manisha Rico [facility] Start: 04-30-2023 End: 04-30-2023 ambulatory Manisha Tari Other [employer] Other Start: 04-30-2023 Encounter for genera l adult medical examination without abnormal findings Manisha Tari [facility] Start: 04-30-2023 Periodic preventive med est patient 18-39 yrs Manisha Tari [facility] Start: 04-29-2023 ([facility]) WMN Init ial Provider Nely Cruz [facility] Start: 04-29-2023 End: 04-29-2023 ambulatory Nely Cruz Other [employer] Other Start: 03-25-2023 End: 03-25-2023 ambulatory Celio Mullins Other [employer] Other Start: 03-25-2023 Nutrition therapy Celio Polk [facility] Start: 03-25-2023 Telephone encounter Celio Owens [facility] Start: 03-14-2023 End: 03-14-2023 ambulatory Nely Cruz Other [employer] Other Start: 03-14-2023 Telephone encounter Nely Cruz [facility] Start: 02-11-2023 End: 02-11-2023 ambulatory Casandra Hassan Other [employer] Other Start: 02-11-2023 Office outpatient vi sit 15 minutes Casandra Hassan [facility] Start: 12-31-2022 End: 01-01-[address] TOBIAS OSCAR . Facility:[facility] Start: 11-26-2022 End: 11-27-[address] TOBIAS OSCAR . Facility:[facility] Start: 11-08-2022 End: 11-09-[address] BOOM ROD Facility:[facility] Start: 10-28-2022 End: 10-28-[address] TOBIAS OSCAR . Facility:[facility] Start: 07-13-2022 End: 07-13-2022 ambulatory Michelle Ernandez Other [employer] Other Start: 07-13-2022 Office outpatient vi sit 15 minutes Michelle Oma [facility] Start: 03-07-2022 End: 03-08-[address] BOOM ROD Facility:[facility] Start: 01-25-2022 Encounter for genera l adult medical examination without abnormal findings DR BOOM ROD [facility] Start: 01-21-2022 End: 01-22-[address] BOOM ROD Facility:[facility] Start: 01-21-2022 End: 01-22-2022 Encounter for general adult medical examination without abnormal findings DR BOOM ROD Facility:[facility] Start: 07-06-2021 End: 07-06-2021 ambulatory Michelle Ernandez Other [employer] Other Start: 07-06-2021 Office outpatient vi sit 15 minutes Michelle Moa [facility] Start: 06-17-2021 Office outpatient vi sit 15 minutes Michelle Oma [facility] Start: 05-31-2021 Office outpatient vi sit 25 minutes Michelle Oma [facility] Start: 08-27-2018 End: 08-27-2018 ambulatory BRENT FINLEYTARAH Facility:[facility] Procedures Date Procedure Procedure Detail Performing Clinician Start: 05-31-2021 Piperacillin/tazobactam Michelle Ernandez Other Start: 08-27-2018 extraction, erupted tooth or exposed root (elevation and/or forceps removal) BRENT TROCONIS Start: 08-27-2018 removal of impacted tooth - soft tissue BRENT TROCONIS Start: 08-27-2018 Urine test visual color cmprsn meths BRENT TROCONIS Immunizations Immunization Date Immunization Notes Care Provider Fa ken 03-03-2021 Do not use COVID-19 Pfizer 2 dose Manisha Marc Other [facility] 02-10-2021 Do not use COVID-19 Pfizer 2 dose Manisha Marc Other [facility] 08-03-2018 Toradol per 15 mg Michelle Sofia ond Other [employer] Other Payers Date Payer Category Payer Self-pay [id number] 2022 Self-pay [id number] 2022 Private Health Insurance 1991 Unknown [id number] 732 1991 Unknown [id number]. 593 1991 Unknown [id number] 2.840.1.990775.3.579.2. 593 1991 Unknown [id number] 10.03.830.1.591807.3.579.2. 593 1991 Unknown [id number]. 593 1991 Unknown [id number] 2.16.840.1.320532.3.579.2. 593 1991 Unknown [id number] 2.16.840.1.220107.3.579.2. 593 1991 Unknown [id number] 2.16.840.1.142425.3.579.2. 1259 1991 Unknown [id number] 2.16.840.1.644688.3.579.2. 196 1991 Unknown [id number] 2.16.840.1.606564.3.579.2. 196 1959 Medicaid [id number] 1959 Unknown [id number] Unknown [facility] [id number] Unknown [id number] 2.16.840.1.690361.3.579.2. 531 Unknown [id number] 2.16.840.1.775726.3.579.2. 531 Unknown [id number] 2.16.840.1.870052.3.579.2. 531 Unknown [id number] 2.16.840.1.225037.3.579.2. 531 Unknown [id number] 2.16.840.1.754645.3.579.2. 531 Unknown [id number] 2.16.840.1.979930.3.579.2. 531 Social History Date Type Detail Facility Unknown if ever smoked [employer] Other Sex Assigned At Sex Assigned At Bir th [employer] Other Start: 12-07-2021 Tobacco smoking status ALIS Never smoked tobacco (finding) [facility] Start: 1990 Sex Assigned At Female F [facility] Clinical Notes 05-31-2021 to 08-19-2023 Note [...] (D) Plate method for meal planning ; [employer]izer[employer] Other 12-27-2023 Evaluation note* Encounter Date Diagnosis [...] You have been given relevant education handouts. 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 Jun, Dietary surveillance and counseling (ICD-10 - [...] metformin 1000 mg total daily, managed by [employer] Jun, Asthma (ICD-10 - J45.909) Jun, Migraine (ICD-10 - G43.909) Jun, Primary hypertension (ICD-10 - I10) Currently on pharmacotherapy Potential for overtreatment given lightheadedness Jun, Other An additional 9 minutes was spent counseling the patient on behavior modification including proper nutrition and physical activity. [employer] Other 11-20-2023 Evaluation note* Encounter Date Diagnosis [...] until you feel better. You may take erbj-wqv-[id number] Imodium for diarrhea as needed. Avoid dairy foods as well as greasy fried foods. Follow-up with your physician if no improvement in 2 to 3 days. May return to work on Jun, Diarrhea, unspecified type (ICD-10 - R19.7) Diarrhea: adult home care material was printed [employer] Other 11-12-2023 Evaluation note* Encounter Date Diagnosis [...] to 3-day Jun, Bronchitis (ICD-10 - J40) [employer] Other 10-25-2023 Evaluation note* Encounter Date Diagnosis Assessment Notes Treatment Notes Treatment Clinical Notes May, Degenerative lumbar disc (ICD-10 - M51.36) L4-5 Pt would like a referral to pain management regarding her chronic back pain. Her last x-ray of the lumbar spine was completed 10/2022 at [facility]--reviewed and in scanned documents. Referral placed. [...] disorder (ICD-10 - F31.81) Referral placed to [facility] for medication mangement. [employer] Other 09-19-2023 Evaluation note* Encounter Date Diagnosis Assessment Notes Treatment Notes Treatment Clinical Notes Apr, Exposure to head lice (ICD-10 - Z20.7) Discussed with patient exam is without any signs of current lice infection. May return to work tomorrow. Patient completed next treatment yesterday. Patient verbalized understanding. [employer] Other 09-14-2023 Evaluation note* Encounter Date Diagnosis Assessment Notes Treatment Notes Treatment Clinical Notes Apr, Primary hypertension (ICD-10 - I10) [employer] Other 09-13-2023 Evaluation note* Encounter Date Diagnosis [...] (ICD-10 - R73.01) Will obtain records from [facility] for most recent labs. 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 Mar, Dietary surveillance and counseling (ICD-10 - [...] as sweet tea, replace ice cream with Danish yogurt, use protein shake in the a.m. [...] with the patient, and documenting clinical information. [employer] Other 06-27-2023 Evaluation note* Encounter Date Diagnosis [...] 7 days, sooner if significantly worsening symptoms. [employer] Other 11-26-2022 Evaluation note* Encounter Date Diagnosis [...] 3 days. Off work today and tomorrow [employer] Other 11-19-2021 Evaluation note* Encounter Date Diagnosis [...] Patient care instructions given in writting by [employer] [facility] At Home document. [employer] Other 10-31-2021 Evaluation note* Encounter Date Diagnosis [...] Patient care instructions given in writting by [email or web address] At Home document. [employer] Other 10-14-2021 Evaluation note* Encounter Date Diagnosis Assessment Notes Treatment Notes Treatment Clinical Notes May, Dysuria (ICD-10 - R30.0) May, Urinary tract infection, site not specified (ICD-10 - N39.0) May, Hematuria, unspecified (ICD-10 - R31.9) [employer] Other Evaluation noteNo [employer] Other Evaluation noteNo assessment information available [facility] Work Phone: Evaluation note* Diagnosis Onset Date Resolution Status Dietary surveillance and counseling acute Exercise counseling acute Food insecurity acute PCOS (polycystic ovarian syndrome) acute Prediabetes acute Severe obesity (BMI >= 40) susi charles [facility] Work Phone: history general Narrative - [...] History Hospitalized for blood l oss 2010 [employer] Other history general Narrative - Reported* Type [...] History Hospitalized for blood l oss 2010 [employer] Other history general Narrative - Reported* Type [...] History Hospitalized for blood l oss 2010 [employer] Other history general Narrative - Reported* Type [...] History Hospitalized for blood l oss 2010 [employer] Other history general Narrative - Reported* Type [...] History Hospitalized for blood l oss 2010 [employer] Other Hisxsei general Narrative - Reported* Type Description Date [...] History Hospitalized for blood l oss 2010 [employer] Other Hiswghp general Narrative - Reported* Type Description Date [...] History Hospitalized for blood l oss 2010 [employer] Other Reason for referral (narrative)* Reason *FU 06/20 would li ke a referral to pscyiatrist -- was recently diagnosed with bipolar and would like medication management. Diagnosis 1 Bipolar 2 disorder ( F31.81) Referral Organization [facility] sharan Referring Provider First Name Manisha Referring Provider Last Name Tari Referring Provider Specialty Nurse Pract lizzieioner Referred Organization [facility] Referred Address [address],[place], [place],[address] Referred Provider Specialty Psychiatry Referral Priority Routine General Notes Paola Henderson 01:25:30 PM >received today, not sure if [facility] does medication management, waiting for notes to be locked Paola Henderson 06/13/2023 10:34:39 AM >notes locked, referral faxed Clinical Notes p: [phone] f: [id number] [place] [facility] Reason *FU 06/20 would li yaneli a referral to pain management for other options for pain control for back pain Diagnosis 1 Degenerative lumbar disc (M51.36) Referral Organization [facility] sharan Referring Provider First Name Manisha Referring Provider Last Name Tari Referring Provider Specialty Nurse Noble orozco Referred Organization [facility] Referred Provider Yrn Parsons Referred Address [address] [place], [place],[address] Referred Provider Specialty Pain Medicin e Referral Priority Routine General Notes Paola Henderson 01:21:23 PM >received today, waiting for notes to be locked Paola Henderson 06/13/2023 10:25:26 AM >notes locked, referral faxed Clinical Notes f: [phone] [employer] Other Summary Purpose Family History No Family History Records Found Relationship Condition Age at Onset Recorded Date/T mariajose father Hypertension Unknown grandparent Heart disease Unknown Unknown Hypertension Unknown grandparent Hypertension Unknown Not Specified Heart disease Unknown Malignant neoplasm of breast Unknown History of stroke Unknown Malignant neoplasm Unknown sister Family history of mental disorder Unknown Advance Directives No Advanced Directives Records Found Advance Directive Response Recorded Date/ Time Advance Directives No April 3:36pm Chief Complaint and Reason for Visit Chief Complaint Obesity E66.01 E28.2 I10 E66.01 E28.2 I10 Chief Complaint E66.01 E28.2 I10 E66.01 E28.2 I10 exercise Obesity Chief Complaint E66.01 E28.2 I10 BH Needs To Be Check For The Flu Wmn exercise Low Bp-Med Discussion Obesity 6 Month Follow Up Reason for Visit Dietary surveillance and counseling Exercise counseling Food insecurity PCOS (polycystic ovarian syndrome) Prediabetes Severe obesity (BMI >= 40) Additional Source Comments INFORMATION SOURCE (unrecogn ized section and content) DATE CREATED AUTHOR 08/27/2021 [employer] DATE CREATED AUTHOR AUTHOR'S ORGANIZ ATION 01/01/2023 [facility] DATE CREATED AUTHOR AUTHOR'S ORGANIZ ATION 07/26/2023 [facility] DATE CREATED AUTHOR AUTHOR'S ORGANIZ ATION 09/12/2023 [facility] DATE CREATED AUTHOR AUTHOR'S ORGANIZ ATION 10/03/2023 [facility] REASON FOR VISIT (unrecogniz ed section [...] Member Role Status Dates Manisha Marc APRN DRY PRESS OPERATOR HELPER-C Primary Care Provider Active Team Status: Active Member Role Status Dates Manisha Marc APRN DRY PRESS OPERATOR HELPER-C Primary Care Provider, Attending Provider Active Team Status: Inactive Member Role Status Dates Manisha Marc APRN DRY PRESS OPERATOR HELPER-C Primary Care Provider Active Celio Mullins DO Attending Provider Active Team Status: Inactive Member Role Status Dates Manisha Marc APRN DRY PRESS OPERATOR HELPER-C Primary Care Provider Active Clinton Frazier MD Attending Provider Active Team Status: Inactive Member Role Status Dates Manisha Marc APRN DRY PRESS OPERATOR HELPER-C Primary Care Provider Active Start: July 032022 End: July 03, 2023 Celio Mullins DO Attending Provider Active St art: July 03, 2023 End: July 03, 2023 Team Status: Active Member Role Status Dates Manisha Marc APRN DRY PRESS OPERATOR HELPER-C Primary Care Provider Active Start: July 032022 Edward Gilmore MD Attending Provider Active Start: July 03, 2023 Team Status: Inactive Member Role Status Dates Michelle Ernandez NP-C Attending Provider Active S tart: July 07, 2023 End: July 07, 2023 Team Status: Inactive Member Role Status Dates Celio Mullins DO Attending Provider Active St art: July 15, 2023 End: July 15, 2023 Team Status: Inactive Member Role Status Dates Manisha Marc APRN DRY PRESS OPERATOR HELPER-C Primary Care Provider Active Start: July End: July 19, 2023 Clinton Frazier MD Attending Provider Active Start: July 19, 2023 End: July 19, 2023 Team Status: Inactive Member Role Status Dates Manisha Marc APRN DRY PRESS OPERATOR HELPER-C Attending Provider Act rfaal Start: August 13, 2023 End: August 13, 2023 Team Status: Inactive Member Role Status Dates Nely Cage [facility] Attending Provider Active Start: August 19, 2023 End: August 19, 2023 Team Status: Active Member Role Status Dates Manisha Marc APRN DRY PRESS OPERATOR HELPER-C Primary Care Provider, Attending Provider Active Start: August 19, 2023 Team Status: Inactive Member Role Status Dates Manisha Marc APRN DRY PRESS OPERATOR HELPER-C Attending Provider Act rafal Start: September 03, 2023 End: September 03, 2023 Team Status: Inactive Member Role Status Dates Manisha Marc APRN DRY PRESS OPERATOR HELPER-C Primary Care Provider Active Start: October 012023 End: October 01, 2023 Celio Mullins DO Attending Provider Active St art: October 01, 2023 End: October 01, 2023 Goals (unrecognized section and content) Goals may [...] BE BASED ON THE PRIMARY CLINICAL RECORDS. [employer] provides no warranty or guarantee of the accuracy or completeness of information in this document.
[2023-10-06 07:16] LABS: HCG Qualitative NEGATIVE (NEGATIVE)
[2023-10-06 07:36] VITALS: BP 129/81; PULSE 90; RESP 16; TEMP 36.9; O2SAT 98
[2023-10-06 08:11] VITALS: BP 116/64; PULSE 89; RESP 18; O2SAT 97
[2023-10-06] MEDS: LIDOCAINE HCL 2% 400 MG/20 ML MDV 15 ML INJ (08:24)
[2023-10-06 08:25] VITALS: BP 121/67; PULSE 84; RESP 18; O2SAT 97
[2023-10-06] MEDS: BUPIVACAINE HCL 0.25% PF 25 MG/10 ML VIAL INJ (08:26)
[2023-10-06] MEDS: TRIAMCINOLONE ACETONIDE 40 MG/ML VIAL INJ (08:26)
--- NOTE | 2023-10-06 08:28 | P.ON_ITS ---
Date of procedure: 10/06/23 Pre-op diagnosis: Lumbar spondylosis Post-op diagnosis: same as pre-op Procedure: Procedure: Bilateral L4-5, L5-S1 radiofrequency ablation Medications: Bupivacaine 0.25% 6cc, lidocaine 2% 5cc, kenalog 80mg The patient was seen and examined in the preoperative holding area.? The site was marked.? Written informed consent was obtained and placed on the chart.? The patient was brought to the medical procedure unit and placed in the prone position.? A timeout was completed verifying correct patient, procedure, positioning, and special requirements.? The skin overlying the target points, the designated medial branch, were prepped and draped in the usual sterile fashion.? The target point was achieved with a 20-gauge 15 cm with a 10 mm curved active tip radiofrequency cannula under direct fluoroscopic visualization.? The needle was inserted at level L4 on the right side. Needle tip position was confirmed with lateral fluoroscopic position.? Motor stimulation was carried out at 2 Hz up to 5 volts with the absence of extremity activity.? This was repeated at level L5, S1 on right side.?? Sensory stimulation was carried out.? Concordant pain was realized at the above- mentioned sites.? Then radiofrequency lesioning was carried out times 90 seconds at 80 degrees times 2 lesions at each level.? The radiofrequency probe was removed prior to cannula removal.? The above-mentioned injectate was placed in 1 mL increments.? The needle was removed. The same procedure, with the same steps, was then completed on the left side at the same levels. Insertion sites were covered.? The patient was taken to the postoperative recovery area and monitored for an appropriate length of time before being found suitable for discharge in the company of a responsible adult. Anesthesia: Local Surgeon: Bud Combs Pathology: none sent Condition: stable Disposition: no change
== END 2023-10-06 08:32 | disposition home or self-care (01) ==
PROVIDERS: PCP Nurse Practitioner Family; Visit Provider Anesthesiology
DX: M47.816 Spondylosis without myelopathy or radiculopathy, lumbar region (principal)
CPT/HCPCS: 36415; 64635; 64636; 84703; J0665; J3301

== ENCOUNTER 2023-10-30 12:15 | Emergency (ER) | payer OTHER, SELFPAY ==
[2023-10-30 12:21] VITALS: BP 142/84; PULSE 95; RESP 18; O2SAT 100; BMI 52.2
--- OUTSIDE RECORDS SUMMARY | 2023-10-30 12:31 | XMS_ITS | CCD ---
Author Name Unknown Address [address] [place] [address] Organization [facility] Care Team Providers Care Financial Services Professional Name Role Phone BRENT KINNEY Referring Unavailable BRENT KINNEY Attending Unavailable BRENT KINNEY Admitting Unavailable Oma Michelle Unavailable VIOLA, DR NUR Consulting Unavailable EL PASO, DR NUR Admitting Unavailable EL PASO, DR NUR Primary Care Unavailable EL PASO, DR NUR Attending Unavailable ZIEBER, DR SUGEY Ibrahim Consulting Unavailable FREDA ., DR COLLADO Admitting Unavailable EL PASO, DR NUR Primary Care Unavailable FREDA ., DR COLLADO Attending Unavailable FREDA ., DR COLLADO Consulting Unavailable EL PASO, DR NUR Consulting Unavailable EL PASO, DR NUR Primary Care Unavailable HOUSE, DR NUR Admitting Unavailable HOUSE, DR NUR Attending Unavailable FREDA ., DR COLLADO Admitting Unavailable EL PASO, DR NUR Primary Care Unavailable FREDA ., [...] Marc Unavailable ROSITA Marc Primary Care Provider Rohrbacher, WIRE STRANDER Manisha Attending Provider DO Ivon Mullinsten Veronica Attending Provider MELA ANDERSON Attending Unavailable Rohrbacher, WIRE STRANDER Manisha Primary Care Provider MD Clinton Frazier Attending Provider DenyrbROSITA servin Attending Provider Rohrbacher, WIRE STRANDER Manisha Primary Care Provider DO Celio Mullins Attending Provider [phone] MD Edward Gilmore Attending Provider [phone] MD Clinton Frazier Attending Provider Denyrbmarycarmenr, WIRE STRANDER Manisha Primary Care Provider MD Edward Gilmore Attending Provider DO Akil Cox Attending Provider Edward Gilmore Admitting Unavailab Edward Lance Attending Unavailab le Rohrbacher, Manisha Primary Care Unavailable Mullins, Celio M Admitting Unavailable Mullins, Celio M Attending Unavailable Rohrbacher, Manisha Primary Care Unavailable Rohrbacher, Manisha Attending Unavailable Rohrbacher, Manisha Admitting Unavailable Rohrbacher, Manisha Primary Care Unavailable Clinton Frazier Admitting Unavailable Clinton Frazier Attending Unavailable Rohrbacher, Manisha Primary Care Unavailable Rohrbacher, Manisha Primary Care Unavailable Mullins, Celio M Admitting Unavailable Mullins, Celio M Attending Unavailable Mullins, Celio M Admitting Unavailable Mullins, Celio M Attending Unavailable Rohrbacher, Manisha Primary Care Unavailable Akil Cox Attending Unavailab le Rohrbacher, Manisha Primary Care Unavailable Akil Cox Admitting Unavailab zach Combs MD, Bud Denis Attending Unavailable Garret CROWLEY, Bud Denis Attending Unavailable Garret CROWLEY, uBd Denis Attending Unavailable Allergies Allergy Classification Reported Allergen(s) Allergy Type Date of Onset Reaction(s) Facility (20 sources) Amoxicillin; Translations: [AMOXICILLIN] Drug Allergy 07-08-20 16 [facility] Repository (6 sources) Cefaclor; Translations: [CEFACLOR] Drug Allergy 04-14-20 15 Unknown Reaction, [facility] Repository (19 sources) Erythromycin; Translations: [ERYTHROMYCIN] Drug Allergy 04-14-20 15 [facility] Repository (19 sources) Cefaclor; Translations: [Ceclor] Drug Allergy 04-17-[address] [facility] Repository (5 sources) Erythromycin Drug Allergy 04-17-20 15 Unknown Reaction, [facility] Repository (5 sources) Cephalosporins (Antibiotic); Translations: [Cephalosporins] Allergy to substance 12-10-19 22 Unknown Reaction, [facility] (3 sources) Lactulose; Translations: [lactulose] Drug Allergy 02-12-20 20 Unknown Reaction [facility] (1 source) Erythromycin Drug Allergy 10-01-19 24 [facility] Repository Medications Current Medications Medication Drug Class(es) Dates Sig (Normalized) Sig (Original) [id number] 200 actuat albuterol 0.09 mg/actuat metered dose [...] propionate 0.05 mg/actuat metered dose nasal spray (5 sources) Corticosteroid Start: 10-01-19 24 Fluticasone Propionate Active 2 SPRAY INTRANASAL Daily October 01, 2023 12:00am Start: 06-29-2023 take 2 spray(s) nasa l route once daily Fluticasone Propionate 50 MCG/ACT 2 sprays Nasally Once a day for 14 day(s) Jun, Active gabapentin 300 mg oral capsule (18 sources) Anti-epileptic Agent Start: 02-12-2020 End: 10-01-2023 take 1 capsule by mouth three times daily as needed Gabapentin Active 300 MG PO Three times daily October 01, 2023 12:00am [employer] capsule Orally Once a day PRN; Note: Source Status: RefillPRN; Refills: 0; Provider: Tari Garnett take 1 capsule by [facility] once daily as needed Gabapentin 300 MG 1 capsule Orally Once a day PRN for 30 days PRN Active lamoTRIgine 25 mg oral tablet (2 sources) Mood Stabilizer, Anti-epileptic Agent Start: 10-01-2023 take [...] 01, 2023 9:18am take 1 tablet by miranda th every twenty-four hours Lisinopril 10 MG 1 tablet Orally Once a day for 90 days Active Lisinopril Activ e melatonin 10 mg oral tablet (16 sources) Start: 10-01-2023 End: 10-01-2023 take 1 [...] tive metFORMIN hydrochloride 500 mg oral tablet (19 sources) Biguanide Start: 02-12-2020 End: 10-01-2023 take 1 tablet by mouth twice daily Metformin Active 500 MG PO Twice daily October 01, 2023 12:00am [employer]TextSi tablet with a meal Orally twice daily; Note: Source Status: Taking; Provider: Tari Dyer ( ) Metformin & Diet Manage Prod (5 sources) Metformin & Diet Manage Prod Active Multivitamin preparation (16 sources) Start: 12-07-2021 take 1 tablet by [...] Sig (Original) ARIPiprazole 5 mg oral tablet (6 sources) Atypical Antipsychotic Start: 03-05-2020 End: 12-07-2021 take 5 mg by mouth once daily Aripiprazole Discontinued 5 MG PO Daily 30 March 04, 2020 11:00pm December 07, 2021 9:45am Savanna Masterson-Cate Corrales Active 24 hr buPROPion hydrochloride 150 mg extended release oral tablet (4 sources) Aminoketone Start: 02-12-2020 End: 02-17-2020 take 150 mg by mouth once daily Bupropion Hcl Discontinued 150 MG PO Daily February 11, 2020 11:00pm February 17, 2020 10:57am citalopram 40 mg oral tablet (8 sources) Serotonin Reuptake Inhibitor Start: 02-12-2020 End: [...] succinate 50 mg extended release oral tablet (4 sources) beta-Adrenergic Ann Start: 02-12-2020 End: 12-07-2021 [...] Date Documented Da te Episodic/Chronic Administrative/social admission (20 sources) Dietary counseling and surveillance; Translations: [Other [...] or chronic Episodic Diabetes mellitus without complication (6 sources) Impaired fasting glucose; Translations: [Prediabetes] Onset: 10-01-2023 Episodic Epilepsy; convulsions (11 sources) Seizure disorder; Translations: [Epilepsy, unspecified, not intractable, without status epilepticus] Onset: 10-08-2023 Chronic Essential hypertension (18 sources) Essential hypertension; [...] with vomiting, unspecified Episodic Other endocrine disorders (15 sources) Polycystic ovary syndrome; Translations: [Polycystic ovarian syndrome] 10-01-2023 Chronic Other endocrine disorders (7 sources) Polycystic ovarian syndrome; Translations: [Polycystic ovaries] Onset: 07-01-2023 Chronic Other female genital disorders [...] Chronic Other nutritional; endocrine; and metabolic disorders (13 sources) Insulin resistance; Translations: [Metabolic syndrome] 10-01-2023 Chronic Other nutritional; endocrine; and metabolic disorders (5 sources) Morbid (severe) obesity due to excess calories; Translations: [Morbid obesity] Onset: 07-01-2023 Chronic Other nutritional; endocrine; and metabolic disorders (2 sources) Metabolic syndrome; Translations: [Insulin resistance] Chronic Other nutritional; endocrine; and metabolic disorders (20 sources) Body mass index 40+ - severely obese; Translations: [Body mass index (BMI) 40.0-44.9, adult] 10-01-2023 Chronic Other nutritional; endocrine; and metabolic disorders (20 sources) Obesity; Translations: [Obesity, unspecified] 10-01-2023 Chronic [...] Spondylosis; intervertebral disc disorders; other back problems (14 sources) Sacroiliitis, not elsewhere classified; Translations: [Other [...] other specified aftercare] Onset: 07-19-2023 Viral infection (3 sources) Viral infection, unspecified; Translations: [Herpes simplex] [...] Test Name Value Interpretation Reference Range Facility MR head/brain wo/w conon MR head/brain wo/w con [facility] Main [place] [id number] MRI Report Signed Patient: Ashly Mehta MR#: [id number] 8 : 1990 Acct:[id number] Age/Sex: 33 / F ADM Date: 10/08/23 Loc: MR Room: Type: [facility] Attending Dr: Akil Cox DO Copies to: Akil Cox DO Ordering Provider: Akil Cox DO Date of Service: 10/08/23 MR/MR head/brain wo/w con: G40.909 MR head/brain wo/w con 10/08/2023 10:49 AM SIGN AND SYMPTOMS: Diagnosed with epilepsy, seizure free for multiple years with recent seizure activity. PROTOCOL: Multiplanar multisequence MR images of brain were obtained with and without IV contrast CONTRAST: 20 mL of intravenous ProHance COMPARISON: None. FINDINGS: Extra axial spaces: Age appropriate. Hemorrhage: None. Ventricular system: Within normal limits. Basal cisterns: Within normal limits and not effaced. Cerebral parenchyma: There is a punctate T2 and FLAIR hyperintense foci in the subcortical white matter most notably in the right anterior subinsular region. These are nonspecific. There is no abnormal postcontrast enhancement. Midline shift: None.. Cerebellum: Within normal limits. Brainstem: Within normal limits. OTHER: Calvarium: Normal marrow signal. Vascular system: Satisfactory flow voids within the anterior and posterior circulation. Visualized Paranasal sinuses: Within normal limits. Visualized Orbits: Within normal limits. Visualized upper cervical spine: Within normal limits. Sella and skull base: Within normal limits. MR/MR head/brain wo/w con IMPRESSION: There is a punctate T2 and FLAIR hyperintense foci in the subcortical white matter most notably in the right anterior subinsular region. These are nonspecific. No evidence of cortical malformation or migrational abnormality. There is no abnormal postcontrast enhancement. Impression dictated by: Ivan Holliday M.D.10/08/2023 4:38 PM Dictation Location: [place] [address] Transcribed By: [facility] 10/08/23 8667 Dictated By: Ivan Holliday II, MD 10/08/23 1630 Signed By: 10/08/[address] [facility] HCG ( test) Bello mejia Ql (U)on 10-06-2023 HCG ( test) Ql (U) Negative NEGATIVE [facility] COVID + FLU Quick Testingon 07-07-2023 SARS-CoV-2 (COVID-19) RNA SURI+probe Ql (Unsp spec) Negative [facility] Other COVID + FLU Quick Testing Negative [facility] Other Alanine aminotransferase [En zymatic activity/volume] in Serum or PlasmaOrdered By: Celio Mullins on 07-03-2023 ALT [Catalytic activity/Vol] 22 U/L 7-52 [facility] Albumin [Mass/volume] in Ser um or Plasma by Bromocresol green (BCG) dye binding methoOrdered By: Celio Mullins on 07-03-2023 Albumin BCG dye [Mass/Vol] 4.4 g/dL 3.5-5.7 [facility] Alkaline phosphatase [Enzyma tic activity/volume] in Serum or PlasmaOrdered By: Celio Mullins on 07-03-2023 ALP [Catalytic activity/Vol] 68 U/L 34-104 [facility] Aspartate aminotransferase [ Enzymatic activity/volume] in Serum or PlasmaOrdered By: Celio Mullins on 07-03-2023 AST [Catalytic activity/Vol] 18 U/L 13-39 [facility] Bilirubin.total [Mass/volume ] in Serum or PlasmaOrdered By: Celio Mullins on 07-03-2023 Bilirubin [Mass/Vol] 0.4 mg/dL 0.3-1.0 [facility] Calcium [Mass/volume] in Ser um or PlasmaOrdered By: Celio Mullins on 07-03-2023 Calcium [Mass/Vol] 9.4 mg/dL 8.6-10.3 [facility] Carbon dioxide, total [Moles /volume] in Serum or PlasmaOrdered By: Celio Mullins on 07-03-2023 CO2 [Moles/Vol] 30.1 mmol/L 21.0-31.0 [facility] Chloride [Moles/volume] in S mrata or PlasmaOrdered By: Celio Mullins on 07-03-2023 Chloride [Moles/Vol] 105 mmol/L 98-107 [facility] Cholesterol [Mass/volume] in Serum or PlasmaOrdered By: Celio Mullins on 07-03-2023 Cholesterol [Mass/Vol] 126 mg/dL 140-200 [facility] Comment on above: Chol less than 200 m g/dl low riskChol 201-239 mg/dl borderline riskChol 240 mg/dl and greater high risk Cholesterol in LDL Calc [Mas s/Vol]Ordered By: Celio Mullins on 07-03-2023 Cholesterol in LDL [Mass/Vol] 69 mg/dL 0-100 [facility] Comment on above: LDL ATP III CLASSIFI CATIONLDL less than 100 mg/dL OptimalLDL 100-129 mg/dL Near or above optimalLDL 130-159 mg/dL Borderline highLDL 160-189 mg/dL HighLDL greater than 189 mg/dL Very high Cholesterol in VLDL Calc [Ma ss/Vol]Ordered By: Celio Mullins on 07-03-2023 Cholesterol in VLDL [Mass/Vol] 18 mg/dL [facility] Comprehensive Metabolic Pane landon 07-03-2023 Albumin [Mass/Vol] 4.4 g/dL Normal 3.5-5.7 [facility] Comment on above: Performed By: #### L IPID, CMP #### [facility] [address] [place] [address] [place] Albumin/Globulin [Mass ratio] 1.4 {ratio} Normal [facility] Comment on above: Performed By: #### L IPID, CMP #### [facility] [address] [place] [address] [place] ALP [Catalytic activity/Vol] 68 U/L Normal 34-104 [facility] Comment on above: Performed By: #### L IPID, CMP #### [facility] [address] [place] [id number] [place] ALT [Catalytic activity/Vol] 22 U/L Normal 7-52 [facility] Comment on above: Performed By: #### L IPID, CMP #### [facility] [address] [place] [id number] [place] Anion gap [Moles/Vol] 10.2 mmol/L Normal 6.0-15.0 [facility] Comment on above: Performed By: #### L IPID, CMP #### [facility] [address] [place] [id number] [facility] AST [Catalytic activity/Vol] 18 U/L Normal 13-39 [facility] Comment on above: Performed By: #### L IPID, CMP #### [facility] [address] [place] [id number] [facility] Bilirubin [Mass/Vol] 0.4 mg/dL Normal 0.3-1.0 [facility] Comment on above: Performed By: #### L IPID, CMP #### [facility] [address] Calcium [Mass/Vol] 9.4 mg/dL Normal 8.6-10.3 [facility] Comment on above: Performed By: #### L IPID, CMP #### [facility] [address] Chloride [Moles/Vol] 105 mmol/L Normal 98-107 [facility] Comment on above: Performed By: #### L IPID, CMP #### [facility] [address] [place] [address] [place] CO2 [Moles/Vol] 30.1 mmol/L Normal 21.0-31.0 [facility] Comment on above: Performed By: #### L IPID, CMP #### [facility] [address] [place] [address] [place] Creatinine [Mass/Vol] 0.63 mg/dL Normal 0.60-1.20 [facility] Comment on above: Performed By: #### L IPID, CMP #### [facility] [address] [place] [address] [place] GFR/1.73 sq M.predicted MDRD (S/P/Bld) [Vol rate/Area] mL/min/{1.73_m2} Normal [facility] Comment on above: Performed By: #### L IPID, CMP #### [facility] [address] [place] [address] [place] Globulin (S) [Mass/Vol] 3.1 g/dL Normal [facility] Comment on above: Performed By: #### L IPID, CMP #### [facility] [address] Glucose [Mass/Vol] 97 mg/dL Normal 70-100 [facility] Comment on above: Result Comment: [facility] Glucose Reference Range is dependent on time and content of last meal. Glucose of more than 200 mg/dL in a nonstressed, ambulatory subject supports the diagnosis of Diabetes Mellitus. ADA recommended reference range Performed By: #### L IPID, CMP #### [facility] [address] Potassium [Moles/Vol] 4.3 mmol/L Normal 3.5-5.1 [facility] Comment on above: Performed By: #### L IPID, CMP #### [facility] [address] [place] [address] Protein [Mass/Vol] 7.5 g/dL Normal 6.4-8.9 [facility] Comment on above: Performed By: #### L IPID, CMP #### [facility] [address] [place] [address] Sodium [Moles/Vol] 141 mmol/L Normal 136-145 [facility] Comment on above: Performed By: #### L IPID, CMP #### [facility] [address] [place] [address] Urea nitrogen [Mass/Vol] 13 mg/dL Normal 7-25 [facility] Comment on above: Performed By: #### L IPID, CMP #### [facility] [address] [place] [address] [place] Creatinine [Mass/volume] in Serum or PlasmaOrdered By: Celio Mullins on 07-03-2023 Creatinine [Mass/Vol] 0.63 mg/dL 0.60-1.20 [facility] Globulin Calc (S) [Mass/Vol] Ordered By: Celio Mullins on 07-03-2023 Globulin (S) [Mass/Vol] 3.1 g/dL [facility] Glucose [Mass/volume] in Ser um or PlasmaOrdered By: Celio Mullins on 07-03-2023 Glucose [Mass/Vol] 97 mg/dL 70-100 [facility] Comment on above: ADA recommended refe rence rangeRandom Glucose Reference Range is dependent on time and content of last meal. Glucose of more than 200 mg/dL in a nonstressed, ambulatory subject supports the diagnosis of Diabetes Mellitus. Lipid Panelon 07-03-2023 Cholesterol [Mass/Vol] 126 mg/dL Low 140-200 [facility] Comment on above: Result Comment: Chol less than 200 mg/dl low risk Chol 201-239 mg/dl borderline risk Chol 240 mg/dl and greater high risk Performed By: #### L IPID, CMP #### [facility] [address] Cholesterol in HDL [Mass/Vol] 39 mg/dL Normal 23-92 [facility] Comment on above: Result Comment: HDL CHOL ATP-III CLASSIFICATION Cardiovascular Risk HDL > or equal to 60 mg/dL LOW HDL < 40 mg/dL HIGH Performed By: #### L IPID, CMP #### [facility] [address] Cholesterol.total/Mali sterol in HDL [Mass ratio] 3.2 {ratio} Normal <5.0 [facility] Comment on above: Result Comment: PERF ORMED BY: [place] [address] PATHOLOGIST MANAGER [employer]ER[employer] DIRECTOR NESHA MAIER M.D. Performed By: #### L IPID, CMP #### [facility] [address] LDL Cholesterol,Calculated 69 mg/dL Normal 0-100 [facility] Comment on above: Result Comment: LDL ATP III CLASSIFICATION LDL less than 100 mg/dL Optimal LDL 100-129 mg/dL Near or above optimal LDL 130-159 mg/dL Borderline high LDL 160-189 mg/dL High LDL greater than 189 mg/dL Very high Performed By: #### L IPID, CMP #### [facility] [address] [place] [id number] [place] Triglyceride w/Reflex 92 mg/dL Normal 0-149 [facility] Comment on above: Result Comment: TRIG ATP III CLASSIFICATION TRIG less than 150 mg/dL Normal TRIG 150-199 mg/dL Borderline high TRIG 200-500 mg/dL High TRIG greater than 500 mg/dL Very high Standard traceable to the Center for Disease Conrtrol and Prevention (CDC) test method. Performed By: #### L IPID, CMP #### [facility] [address] VLDL CHOLESTEROL 18 mg/dL Normal [facility] Comment on above: Performed By: #### L IPID, CMP #### [facility] [address] No Panel InformationOrdered By: Celio Mullins on 07-03-2023 Estimated GFR (CKD-EPI) > 60.0 mL/Min [facility] Creatinine Clearance (Chem N/A [facility] Potassium [Moles/volume] in Serum or PlasmaOrdered By: Celio Mullins on 07-03-2023 Potassium [Moles/Vol] 4.3 mmol/L 3.5-5.1 [facility] Protein [Mass/volume] in Ser um or PlasmaOrdered By: Celio Mullins on 07-03-2023 Protein [Mass/Vol] 7.5 g/dL 6.4-8.9 [facility] Serum or plasma albumin/glob ulin mass ratioOrdered By: Celio Mullins on 07-03-2023 Albumin/Globulin [Mass ratio] 1.4 {ratio} [facility] Serum or plasma anion gap de terminationOrdered By: Celio Mullins on 07-03-2023 Anion gap [Moles/Vol] 10.2 mmol/L 6.0-15.0 [facility] Serum or plasma high density lipoprotein (HDL) cholesterol measurementOrdered By: Celio Mullins on 07-03-2023 Cholesterol in HDL [Mass/Vol] 39 mg/dL 23-92 [facility] Comment on above: HDL CHOL ATP-III CLA SSIFICATION Cardiovascular RiskHDL > or equal to 60 mg/dL LOWHDL < 40 mg/dL HIGH Serum or plasma total choles terol/high density lipoprotein (HDL) cholesterol mass ratOrdered By: Celio Mullins on 07-03-2023 Cholesterol.total/Mali sterol in HDL [Mass ratio] 3.2 {ratio} <5.0 [facility] Sodium [Moles/volume] in Ser um or PlasmaOrdered By: Celio Mullins on 07-03-2023 Sodium [Moles/Vol] 141 mmol/L 136-145 [facility] Triglyceride [Mass/volume] i n Serum or PlasmaOrdered By: Celio Mullins on 07-03-2023 Triglyceride [Mass/Vol] 92 mg/dL 0-149 [facility] Comment on above: TRIG ATP III CLASSIF ICATIONTRIG less than 150 mg/dL NormalTRIG 150-199 mg/dL Borderline highTRIG 200-500 mg/dL High TRIG greater than 500 mg/dL Very highStandard traceable to the Center for Disease Conrtrol and Prevention (CDC) test method. Urea nitrogen [Mass/volume] in Serum or PlasmaOrdered By: Celio Mullins on 07-03-2023 Urea nitrogen [Mass/Vol] 13 mg/dL 7-25 [facility] A1C with Estimated Average G luon 07-01-2023 Glucose [Mass/Vol] 117 mg/dL Normal [facility] Comment on above: Order Comment: Reaso n for Exam Severe obesity (BMI >= 40);PCOS (polycystic ovarian syndrome Result Comment: PERF ORMED BY: [place] [address] PATHOLOGIST MANAGER [employer] DIRECT[employer] NESHA MAIER M.D. Performed By: #### A POB, LIPA #### [facility] , #### CMP, A1C WTH eA #### [facility] [address] [place] [address] HbA1c (Bld) [Mass fraction] 5.7 % High 4.3-5.6 [facility] Comment on above: Order Comment: Reaso n for Exam Severe obesity (BMI >= 40);PCOS (polycystic ovarian syndrome Result Comment: Incr eased risk for diabetes: 5.7 - 6.4 diabetes: >6.4 glycemic control for adults with diabetes: <7.0 Performed By: #### A POB, LIPA #### [facility] , #### CMP, A1C WTH eA #### [facility] [address] [place] [address] [place] Alanine aminotransferase [En zymatic activity/volume] in Serum or PlasmaOrdered By: Celio Mullins on 07-01-2023 ALT [Catalytic activity/Vol] 21 U/L 7-52 [facility] Albumin [Mass/volume] in Ser um or Plasma by Bromocresol green (BCG) dye binding methoOrdered By: Celio Mullins on 07-01-2023 Albumin BCG dye [Mass/Vol] 4.6 g/dL 3.5-5.7 [facility] Alkaline phosphatase [Enzyma tic activity/volume] in Serum or PlasmaOrdered By: Celio Mullins on 07-01-2023 ALP [Catalytic activity/Vol] 72 U/L 34-104 [facility] Apolipoprotein Bon Apolipoprotein B [Mass/Vol] 83 mg/dL Normal <90 [facility] Comment on above: Order Comment: Reaso n for Exam Severe obesity (BMI >= 40);PCOS (polycystic ovarian syndrome Result Comment: Hedy rabzach < 90 Borderline High 90 - 99 High 100 - 130 Very High >130 ASCVD RISK THERAPEUTIC TARGET CATEGORY APO B (mg/dL) Very High Risk <80 (if extreme risk <70) High Risk <90 Moderate Risk <90 Performed at: [facility] [address] [id number] Assembly Line Driver: Jeanna Case MD, Phone: [phone] PERFORMED BY: [place] [address] PATHOLOGIST MANAGER [employer] DIRECTOR NESHA MAIER M.D. Performed By: #### A POB, LIPA #### [facility] , #### CMP, A1C WTH eA #### [facility] [address] [place] [address] [place] Apolipoprotein B [Mass/volum e] in Serum or PlasmaOrdered By: Celio Mullins on 07-01-2023 Apolipoprotein B [Mass/Vol] 83 mg/dL <90 [facility] Comment on above: Desirable < 90 Charissa almanza High 90 - 99 High 100 - 130 Very High >130 ASCVD RISK THERAPEUTIC TARGET CATEGORY APO B (mg/dL) Very High Risk <80 (if extreme risk <70) High Risk <90 Moderate Risk <90Performed at: - [facility] [id number] Director: Jeanna Case MD, Phone: [phone] Aspartate aminotransferase [ Enzymatic activity/volume] in Serum or PlasmaOrdered By: Celio Mullins on 07-01-2023 AST [Catalytic activity/Vol] 19 U/L 13-39 [facility] Bilirubin.total [Mass/volume ] in Serum or PlasmaOrdered By: Celio Mullins on 07-01-2023 Bilirubin [Mass/Vol] 0.4 mg/dL 0.3-1.0 [facility] Calcium [Mass/volume] in Ser um or PlasmaOrdered By: Celio Mullins on 07-01-2023 Calcium [Mass/Vol] 9.8 mg/dL 8.6-10.3 [facility] Carbon dioxide, total [Moles /volume] in Serum or PlasmaOrdered By: Celio Mullins on 07-01-2023 CO2 [Moles/Vol] 25.3 mmol/L 21.0-31.0 [facility] Chloride [Moles/volume] in S marta or PlasmaOrdered By: Celio Mullins on 07-01-2023 Chloride [Moles/Vol] 105 mmol/L 98-107 [facility] Comprehensive Metabolic Pane landon 07-01-2023 Albumin [Mass/Vol] 4.6 g/dL Normal 3.5-5.7 [facility] Comment on above: Order Comment: Reaso n for Exam Severe obesity (BMI >= 40);PCOS (polycystic ovarian syndrome NON FASTING Performed By: #### A POB, LIPA #### [facility] , #### CMP, A1C WTH eA #### [facility] [address] [place] [address] Albumin/Globulin [Mass ratio] 1.4 {ratio} Normal [facility] Comment on above: Order Comment: Reaso n for Exam Severe obesity (BMI >= 40);PCOS (polycystic ovarian syndrome NON FASTING Performed By: #### A POB, LIPA #### [facility] , #### CMP, A1C WT eA #### [address] ALP [Catalytic activity/Vol] 72 U/L Normal 34-104 [facility] Comment on above: Order Comment: Reaso n for Exam Severe obesity (BMI >= 40);PCOS (polycystic ovarian syndrome NON FASTING Result Comment: PERF ORMED BY: [place] [address] PATHOLOGIST MANAGER [employer]ER[employer] DIRECTOR NESHA MAIER M.D. Performed By: #### A POB, LIPA #### [facility] , #### CMP, A1C WT eA #### [address] ALT [Catalytic activity/Vol] 21 U/L Normal 7-52 [facility] Comment on above: Order Comment: Reaso n for Exam Severe obesity (BMI >= 40);PCOS (polycystic ovarian syndrome NON FASTING Performed By: #### A POB, LIPA #### [facility] , #### CMP, A1C WTH eA #### [facility] [address] [place] [address] Anion gap [Moles/Vol] 11.5 mmol/L Normal 6.0-15.0 [facility] Comment on above: Order Comment: Reaso n for Exam Severe obesity (BMI >= 40);PCOS (polycystic ovarian syndrome NON FASTING Performed By: #### A POB, LIPA #### [facility] , #### CMP, A1C WTH eA #### [facility] [address] [place] [address] [place] AST [Catalytic activity/Vol] 19 U/L Normal 13-39 [facility] Comment on above: Order Comment: Reaso n for Exam Severe obesity (BMI >= 40);PCOS (polycystic ovarian syndrome NON FASTING Performed By: #### A POB, LIPA #### [facility] , #### CMP, A1C WTH eA #### [facility] [address] Bilirubin [Mass/Vol] 0.4 mg/dL Normal 0.3-1.0 [facility] Comment on above: Order Comment: Reaso n for Exam Severe obesity (BMI >= 40);PCOS (polycystic ovarian syndrome NON FASTING Performed By: #### A POB, LIPA #### [facility] , #### CMP, A1C WTH eA #### [facility] [address] Calcium [Mass/Vol] 9.8 mg/dL Normal 8.6-10.3 [facility] Comment on above: Order Comment: Reaso n for Exam Severe obesity (BMI >= 40);PCOS (polycystic ovarian syndrome NON FASTING Performed By: #### A POB, LIPA #### [facility] , #### CMP, A1C WTH eA #### [facility] [address] [place] [address] [place] Chloride [Moles/Vol] 105 mmol/L Normal 98-107 [facility] Comment on above: Order Comment: Reaso n for Exam Severe obesity (BMI >= 40);PCOS (polycystic ovarian syndrome NON FASTING Performed By: #### A POB, LIPA #### [facility] , #### CMP, A1C WTH eA #### [facility] [address] [place] [id number] [place] CO2 [Moles/Vol] 25.3 mmol/L Normal 21.0-31.0 [facility] Comment on above: Order Comment: Reaso n for Exam Severe obesity (BMI >= 40);PCOS (polycystic ovarian syndrome NON FASTING Performed By: #### A POB, LIPA #### [facility] , #### CMP, A1C WTH eA #### [facility] [address] Creatinine [Mass/Vol] 0.64 mg/dL Normal 0.60-1.20 [facility] Comment on above: Order Comment: Reaso n for Exam Severe obesity (BMI >= 40);PCOS (polycystic ovarian syndrome NON FASTING Performed By: #### A POB, LIPA #### [facility] , #### CMP, A1C WTH eA #### [facility] [address] GFR/1.73 sq M.predicted MDRD (S/P/Bld) [Vol rate/Area] mL/min/{1.73_m2} [facility] Comment on above: Order Comment: Reaso n for Exam Severe obesity (BMI >= 40);PCOS (polycystic ovarian syndrome NON FASTING Performed By: #### A POB, LIPA #### [facility] , #### CMP, A1C WTH eA #### [facility] [address] [place] [address] Globulin (S) [Mass/Vol] 3.2 g/dL Normal [facility] Comment on above: Order Comment: Reaso n for Exam Severe obesity (BMI >= 40);PCOS (polycystic ovarian syndrome NON FASTING Performed By: #### A POB, LIPA #### [facility] , #### CMP, A1C WTH eA #### [facility] [address] Glucose [Mass/Vol] 95 mg/dL Normal 70-100 [facility] Comment on above: Order Comment: Reaso n for Exam Severe obesity (BMI >= 40);PCOS (polycystic ovarian syndrome NON FASTING Result Comment: [place] Glucose Reference Range is dependent on time and content of last meal. Glucose of more than 200 mg/dL in a nonstressed, ambulatory subject supports the diagnosis of Diabetes Mellitus. ADA recommended reference range Performed By: #### A POB, LIPA #### [facility] , #### CMP, A1C WTH eA #### [facility] [address] [place] [address] [place] Potassium [Moles/Vol] 3.8 mmol/L Normal 3.5-5.1 [facility] Comment on above: Order Comment: Reaso n for Exam Severe obesity (BMI >= 40);PCOS (polycystic ovarian syndrome NON FASTING Performed By: #### A POB, LIPA #### [facility] , #### CMP, A1C WTH eA #### [place] [address] [place] Protein [Mass/Vol] 7.8 g/dL Normal 6.4-8.9 [facility] Comment on above: Order Comment: Reaso n for Exam Severe obesity (BMI >= 40);PCOS (polycystic ovarian syndrome NON FASTING Performed By: #### A POB, LIPA #### [facility] , #### CMP, A1C WTH eA #### [place] [address] [place] Sodium [Moles/Vol] 138 mmol/L Normal 136-145 [facility] Comment on above: Order Comment: Reaso n for Exam Severe obesity (BMI >= 40);PCOS (polycystic ovarian syndrome NON FASTING Performed By: #### A POB, LIPA #### [facility] , #### CMP, A1C WTH eA #### [place] [address] [place] Urea nitrogen [Mass/Vol] 16 mg/dL Normal 7-25 [facility] Comment on above: Order Comment: Reaso n for Exam Severe obesity (BMI >= 40);PCOS (polycystic ovarian syndrome NON FASTING Performed By: #### A POB, LIPA #### [facility] , #### CMP, A1C WTH eA #### [facility] [address] [place] [address] [place] Creatinine [Mass/volume] in Serum or PlasmaOrdered By: Celio Mullins on 07-01-2023 Creatinine [Mass/Vol] 0.64 mg/dL 0.60-1.20 [facility] Globulin Calc (S) [Mass/Vol] Ordered By: Celio Mullins on 07-01-2023 Globulin (S) [Mass/Vol] 3.2 g/dL [facility] Glucose [Mass/volume] in Ser um or PlasmaOrdered By: Celio Mullins on 07-01-2023 Glucose [Mass/Vol] 95 mg/dL 70-100 [facility] Comment on above: ADA recommended refe rence rangeRandom Glucose Reference Range is dependent on time and content of last meal. Glucose of more than 200 mg/dL in a nonstressed, ambulatory subject supports the diagnosis of Diabetes Mellitus. Glucose mean value [Mass/vol ume] in Blood Estimated from glycated hemoglobinOrdered By: Celio Mullins on 07-01-2023 Average glucose Estimated from glycated hemoglobin (Bld) [Mass/Vol] 117 mg/dL [facility] Hemoglobin A1c percentageOrd ered By: Celio Mullins on 07-01-2023 HbA1c (Bld) [Mass fraction] 5.7 % 4.3-5.6 [facility] Comment on above: Increased risk for d iabetes: 5.7 - 6.4diabetes: >6.4glycemic control for adults with diabetes: <7.0 Lipoprotein (a)on 07-01-2023 Lipoprotein a [Mass/Vol] 13.0 mg/dL Normal <75.0 [facility] Comment on above: Order Comment: Reaso n for Exam Severe obesity (BMI >= 40);PCOS (polycystic ovarian syndrome Result Comment: Note : Values greater than or equal to 75.0 nmol/L may indicate an independent risk factor for CHD, but must be evaluated with caution when applied to non- populations due to the influence of genetic factors on Lp(a) across ethnicities. Performed at: [facility] [address] [id number] Assembly Line Driver: Cassius Zhong PhD, Phone: [phone] Performed By: #### A POB, LIPA #### [facility] , #### CMP, A1C WT eA #### [facility] [address] No Panel InformationOrdered By: Celio Mullins on 07-01-2023 Estimated GFR (CKD-EPI) > 60.0 mL/Min [facility] Creatinine Clearance (Chem N/A [facility] Potassium [Moles/volume] in Serum or PlasmaOrdered By: Celio Mullins on 07-01-2023 Potassium [Moles/Vol] 3.8 mmol/L 3.5-5.1 [facility] Protein [Mass/volume] in Ser um or PlasmaOrdered By: Celio Mullins on 07-01-2023 Protein [Mass/Vol] 7.8 g/dL 6.4-8.9 [facility] Serum or plasma albumin/glob ulin mass ratioOrdered By: Celio Mullins on 07-01-2023 Albumin/Globulin [Mass ratio] 1.4 {ratio} [facility] Serum or plasma anion gap de terminationOrdered By: Celio Mullins on 07-01-2023 Anion gap [Moles/Vol] 11.5 mmol/L 6.0-15.0 [facility] Serum or plasma lipoprotein a measurement (moles/volume)Ordered By: Celio Mullins on 07-01-2023 Lipoprotein a [Moles/Vol] 13.0 nmol/L <75.0 [facility] Comment on above: Note: Values greater than or equal to 75.0 nmol/L may indicate an independent risk factor for CHD, but must be evaluated with caution when applied to non- populations due to the influence of genetic factors on Lp(a) across ethnicities.Performed at: - [facility] [id number] Director: Cassius Zhong PhD, Phone: [phone] Sodium [Moles/volume] in Ser um or PlasmaOrdered By: Celio Mullins on 07-01-2023 Sodium [Moles/Vol] 138 mmol/L 136-145 [facility] Urea nitrogen [Mass/volume] in Serum or PlasmaOrdered By: Celio Mullins on 07-01-2023 Urea nitrogen [Mass/Vol] 16 mg/dL 7-25 [facility] COVID Quick Testingon 2022 Result Negative [facility] Other SARS-CoV-2 (COVID-19) RNA NA A+probe Ql (Resp)on 02-11-2023 SARS-CoV-2 (COVID-19) RNA SURI+probe Ql (Unsp spec) Negative [facility] Other DHEA-SULFATEon 01-01-2023 DHEA-Sulfate 95.3 ug/dL Normal 84.8-378.0 [facility] Comment on above: Performed By: #### D RIMA #### [facility] [address] [place] [address] Dr. Kaushik Palomares FSHon 01-01-2023 FSH 4.6 mIU/mL Normal [facility] Comment on above: Result Comment: Adul t Female: Follicular phase 3.5 - 12.5 Ovulation phase 4.7 - 21.5 Luteal phase 1.7 - 7.7 Postmenopausal 25.8 - 134.8 Performed By: #### C BC #### [facility] [address] [place] [address] Dr. Kaushik Palomares LUTEINIZING HORMONE (LH)on 01-01-2023 LH 3.5 mIU/mL Normal [facility] Comment on above: Result Comment: Adul t Female: Follicular phase 2.4 - 12.6 Ovulation phase 14.0 - 95.6 Luteal phase 1.0 - 11.4 Postmenopausal 7.7 - 58.5 Performed By: #### L [facility] #### [facility] [address] [place] [address] Dr. Kaushik Palomares CBC AUTO DIFFon 12-31-2022 BASO # 0.1 103/ul Normal 0.0-0.1 [facility] Comment on above: Performed By: #### C BC #### [facility] [address] [place] [address] Dr. Kaushik Palomares Basophils/100 WBC (Bld) 0.8 % Normal 0.2-2.0 [facility] Comment on above: Performed By: #### C BC #### [facility] [address] [place] [address] Dr. Kaushik Palomares EO # 0.1 103/ul Normal 0.0-0.7 [facility] Comment on above: Performed By: #### C BC #### [facility] [address] [place] [address] Dr. Kaushik Palomares Eosinophils/100 WBC (Bld) 1.7 % Normal 0.9-7.0 [facility] Comment on above: Performed By: #### C BC #### [facility] [address] [place] [address] Dr. Kaushik Palomares Erythrocyte distribution width (RBC) [Ratio] 12.8 % Normal 11.0-15.0 [facility] Comment on above: Performed By: #### C BC #### [facility] [address] [place] [address] Dr. Kaushik Palomares Hematocrit (Bld) [Volume fraction] 33.0 % Critically low 36.0-48.0 [facility] Comment on above: Performed By: #### C BC #### [facility] [address] [place] [address] Dr. Kaushik Palomares Hemoglobin (Bld) [Mass/Vol] 11.0 g/dL Critically low 12.0-16.0 [facility] Comment on above: Performed By: #### C BC #### [facility] [address] [place] [address] Dr. Kaushik Palomares IG # 0.03 10e3/ul Normal 0.00-0.03 [facility] Comment on above: Performed By: #### C BC #### [facility] [address] [place] [address] Dr. Kaushik Palomares IG % 0.5 % Normal 0.0-0.5 [facility] Comment on above: Performed By: #### C BC #### [facility] [address] [place] [address] Dr. Kaushik Palomares LYMPH # 2.4 103/ul Normal 1.2-3.8 [facility] Comment on above: Performed By: #### C BC #### [facility] [address] [place] [address] Dr. Kaushik Palomares Lymphocytes/100 WBC (Bld) 36.6 % Normal 20.5-60.0 [facility] Comment on above: Performed By: #### C BC #### [facility] [address] [place] [address] Dr. Kaushik Palomares MANUAL DIFF REQ NO Normal [facility] Comment on above: Performed By: #### C BC #### [facility] [address] [place] [address] Dr. Kaushik Palomares MCH (RBC) [Entitic mass] 29.0 pg Normal 26.7-34.0 [facility] Comment on above: Performed By: #### C BC #### [facility] [address] [place] [address] Dr. Kaushik Palomares MCHC (RBC) [Mass/Vol] 33.3 g/dL Normal 29.9-35.2 [facility] Comment on above: Performed By: #### C BC #### [facility] [address] [place] [address] Dr. Kaushik Palomares MCV (RBC) [Entitic vol] 87.1 fL Normal 81.0-99.0 [facility] Comment on above: Performed By: #### C BC #### [facility] [address] [place] [address] Dr. Kaushik Palomares MONO # 0.2 103/ul Critically low 0.3-0.8 [facility] Comment on above: Performed By: #### C BC #### [facility] [address] [place] [address] Dr. Kaushik Palomares Monocytes/100 WBC (Bld) 3.6 % Normal 1.7-12.0 [facility] Comment on above: Performed By: #### C BC #### [facility] [address] [place] [address] Dr. Kaushik Palomares NEUT # 3.7 103/ul Normal 1.4-6.5 [facility] Comment on above: Performed By: #### C BC #### [facility] [address] [place] [address] Dr. Kaushik Palomares Neutrophils/100 WBC (Bld) 56.8 % Normal 43.0-75.0 [facility] Comment on above: Performed By: #### C BC #### [facility] [address] [address] [address] Kaushki Palomares Platelet mean volume (Bld) [Entitic vol] 9.8 fL Normal 9.5-13.5 [facility] Comment on above: Performed By: #### C BC #### [facility] [address] [address] [address] Kaushik Palomares PLT 234 103/ul Normal 150-450 [facility] Comment on above: Performed By: #### C BC #### [facility] [address] [place] [address] Dr. Kaushik Palomares RBC 3.79 106/ul Critically low 4.20-5.40 [facility] Comment on above: Performed By: #### C BC #### [facility] [address] [address] [address] Kaushik Palomares WBC 6.5 103/ul Normal 4.0-11.0 [facility] Comment on above: Performed By: #### C BC #### [facility] [address] [place] [address] Dr. Kaushik Palomares FREE T4on 12-31-2022 Free T4 [Mass/Vol] 0.79 ng/dL Normal 0.76-1.46 [facility] Comment on above: Performed By: #### F T4 #### [facility] [address] [place] [address] Dr. Kaushik Palomares GLYCOHEMOGLOBIN A1Con 2022 ADA RECOMMENDATION SEE BELOW Normal [facility] Comment on above: Result Comment: ADA RECOMMENDED LIMIT 4.0 - 6.0 ADA THERAPEUTIC TARGET < 7.0 ACTION SUGGESTED > 7.0 Performed By: #### A 1C #### [facility] [address] [place] [address] Dr. Kaushik Palomares Glucose [Mass/Vol] 111 mg/dL Normal [facility] Comment on above: Performed By: #### A 1C #### [facility] [address] [place], [place] [address] Dr. Kaushik Palomares HbA1c (Bld) [Mass fraction] 5.5 % Normal 4.5-6.2 [facility] Comment on above: Performed By: #### A 1C #### [facility] [address] [place], [place] [address] Dr. Kaushik Palomares TSHon 12-31-2022 TSH 1.114 uIU/mL Normal 0.358-3.740 [facility] Comment on above: Performed By: #### C BC #### [facility] [address] [place], [place] [address] Dr. Kaushik Palomares US PELVIS AND TRANSVAGon [...] SUGEY MACDONALD Date: 2022-11-26 15:58 Normal [facility] XR SACRUM_COCCYXon 3 XR SACRUM_COCCYX EXAMINATION: [...] by: SUGEY MACDONALD Date: 2022-11-08 10:01 Normal [facility] PAP ACOG PANEL 2: 30 to 65on 11-05-2022 . . Normal [facility] Comment on above: Result Comment: Perf ormed at: WB Performed By: #### C BC #### [facility] [address] [place] [address] [address] Kaushik Palomares Age Gdln ACOG Testing 30-65 Normal [facility] Comment on above: Performed By: #### C BC #### [facility] [address] [address] [address] Kaushik Palomares DIAGNOSIS: Comment Normal [facility] Comment on above: Result Comment: NEGA TIVE FOR INTRAEPITHELIAL LESION OR MALIGNANCY. Performed at: WB Performed By: #### C BC #### [facility] [address] [address] [address] Kaushik Palomares HPV Aptima Negative Normal Negative [facility] Comment on above: Result Comment: This nucleic acid amplification test detects fourteen high-risk HPV types (16,18,31,33,35,39,45,51,52,56,58,59,66,68) without differentiation. Performed at: =G Performed By: #### C BC #### [facility] [address] [address] [address] Kaushik Palomares HPV Genotype Reflex Comment Normal [facility] Comment on above: Result Comment: Crit eria not met, HPV Genotype not performed. Performed at: WB Performed By: #### C BC #### [facility] [address] [address] [address] Kaushik Palomares Methodology: Comment Normal [facility] Comment on above: Result Comment: This liquid based ThinPrep(R) pap test was screened with the use of an image guided system. Performed at: WB Performed By: #### C BC #### [facility] [address] [place] [address] Dr. Kaushik Palomares Note: Comment [facility] Comment on above: [...] WB Performed By: #### C BC #### [facility] [address] [place] [address] [address] Kaushik Palomares Performed by: Comment Normal [facility] Comment on above: Result Comment: Robi Graham, Fancy Stitcher (ASCP) Performed at: WB Performed By: #### C BC #### [facility] [address] [place] [address] Dr. Kaushik Palomares Specimen adequacy: Comment Normal [facility] Comment on above: Result Comment: Sati sfactory for evaluation. Endocervical and/or squamous metaplastic cells (endocervical component) are present. Performed at: WB Performed By: #### C BC #### [facility] [address] [place] [address] Dr. Kaushik Palomares COVID/FLU RT-PCRon 2 SARS-CoV-2 (COVID-19) RNA SURI+probe Ql (Unsp spec) Negative [facility] Other COVID/FLU RT-PCR Negative [facility] [employer] Other HCG-BETA SUBUNIT QUANTon hCG,Beta Subunit,Qnt,Serum <1 Normal [facility] Comment on above: Result Comment: Fema le (Non-) 0 - 5 (Postmenopausal) 0 - 8 . Female () Weeks of Gestation 3 6 - 71 4 10 - 750 5 204 - 7099 6 148 - 83630 7 [phone] -869249 8 38410 -151590 9 75134 -244919 10 99556 -578454 12 49191 -599793 14 26359 - 53637 15 25333 - 50486 16 2322 - 91841 17 8162 - 64918 18 7786 - 35817 Rg ECLIA methodology Performed By: #### H CGSUB #### [facility] [address] [place] [address] Dr. Kaushik Palomares T4 LABCORPon 01-22-2022 T4 [Mass/Vol] 7.8 ug/dL Normal 4.5-12.0 [facility] Comment on above: Performed By: #### T 4LC #### [facility] [address] [place] [address] Dr. Kaushik Palomares CBC AUTO DIFFon 01-21-2022 BASO # 0.1 103/ul Normal 0.0-0.1 [facility] Comment on above: Performed By: #### C BC #### [facility] [address] [place] [address] Dr. Kaushik Palomares Basophils/100 WBC (Bld) 0.6 % Normal 0.2-2.0 [facility] Comment on above: Performed By: #### C BC #### [facility] [address] [place] [address] Dr. Kaushik Palomares EO # 0.1 103/ul Normal 0.0-0.7 [facility] Comment on above: Performed By: #### C BC #### [facility] [address] [place] [address] Dr. Kaushik Palomares Eosinophils/100 WBC (Bld) 1.2 % Normal 0.9-7.0 [facility] Comment on above: Performed By: #### C BC #### [facility] [address] [place] [address] Dr. Kaushik Palomares Erythrocyte distribution width (RBC) [Ratio] 13.3 % Normal 11.0-15.0 [facility] Comment on above: Performed By: #### C BC #### [facility] [address] [place] [address] Dr. Kaushik Palomares Hematocrit (Bld) [Volume fraction] 40.0 % Normal 36.0-48.0 [facility] Comment on above: Performed By: #### C BC #### [facility] [address] [place] [address] Dr. Kaushik Palomares Hemoglobin (Bld) [Mass/Vol] 12.7 g/dL Normal 12.0-16.0 [facility] Comment on above: Performed By: #### C BC #### [facility] [address] [place] [address] Dr. Kaushik Palomares IG # 0.02 10e3/ul Normal 0.00-0.03 [facility] Comment on above: Performed By: #### C BC #### [facility] [address] [place] [address] Dr. Kaushik Palomares IG % 0.2 % Normal 0.0-0.5 [facility] Comment on above: Performed By: #### C BC #### [facility] [address] [place] [address] Dr. Kaushik Palomares LYMPH # 3.0 103/ul Normal 1.2-3.8 [facility] Comment on above: Performed By: #### C BC #### [facility] [address] [place] [address] Dr. Kaushik Palomares Lymphocytes/100 WBC (Bld) 32.9 % Normal 20.5-60.0 [facility] Comment on above: Performed By: #### C BC #### [facility] [address] [place] [address] Dr. Kaushik Palomares MANUAL DIFF REQ NO Normal [facility] Comment on above: Performed By: #### C BC #### [facility] [address] [place] [address] Dr. Kaushik Palomares MCH (RBC) [Entitic mass] 28.5 pg Normal 26.7-34.0 [facility] Comment on above: Performed By: #### C BC #### [facility] [address] [place] [address] Dr. Kaushik Palomares MCHC (RBC) [Mass/Vol] 31.8 g/dL Normal 29.9-35.2 [facility] Comment on above: Performed By: #### C BC #### [facility] [address] [place] [address] Dr. Kaushik Palomares MCV (RBC) [Entitic vol] 89.7 fL Normal 81.0-99.0 [facility] Comment on above: Performed By: #### C BC #### [facility] [address] [place] [address] Dr. Kaushik Palomares MONO # 0.5 103/ul Normal 0.3-0.8 [facility] Comment on above: Performed By: #### C BC #### [facility] [address] [place] [address] Dr. Kaushik Palomares Monocytes/100 WBC (Bld) 5.1 % Normal 1.7-12.0 [facility] Comment on above: Performed By: #### C BC #### [facility] [address] [place] [address] Dr. Kaushik Palomares NEUT # 5.4 103/ul Normal 1.4-6.5 [facility] Comment on above: Performed By: #### C BC #### [facility] [address] [place] [address] Dr. Kaushik Palomares Neutrophils/100 WBC (Bld) 60.0 % Normal 43.0-75.0 [facility] Comment on above: Performed By: #### C BC #### [facility] [address] [place] [address] Dr. Kaushik Palomares Platelet mean volume (Bld) [Entitic vol] 9.3 fL Critically low 9.5-13.5 [facility] Comment on above: Performed By: #### C BC #### [facility] [address] [place] [address] Dr. Kaushik Palomares PLT 221 103/ul Normal 150-450 [facility] Comment on above: Performed By: #### C BC #### [facility] [address] [place] [address] Dr. Kaushik Palomares RBC 4.46 106/ul Normal 4.20-5.40 [facility] Comment on above: Performed By: #### C BC #### [facility] [address] [place] [address] Dr. Kaushik Palomares WBC 9.0 103/ul Normal 4.0-11.0 [facility] Comment on above: Performed By: #### C BC #### [facility] [address] [address] [address] Kaushik Palomares GLYCOHEMOGLOBIN A1Con 2021 ADA RECOMMENDATION SEE BELOW Normal [facility] Comment on above: Result Comment: ADA RECOMMENDED LIMIT 4.0 - 6.0 ADA THERAPEUTIC TARGET < 7.0 ACTION SUGGESTED > 7.0 Performed By: #### C BC #### [facility] [address] [place] [address] Dr. Kaushik Palomares Glucose [Mass/Vol] 94 mg/dL Normal [facility] Comment on above: Performed By: #### C BC #### [facility] [address] [place] [address] Dr. Kaushik Palomares HbA1c (Bld) [Mass fraction] 4.9 % Normal 4.5-6.2 [facility] Comment on above: Performed By: #### C BC #### [facility] [address] [place] [address] Dr. Kaushik Palomares LIPID PROFILEon 01-21-2022 CHOL-HDL RATIO NORM SEE BELOW Normal [facility] Comment on above: Result Comment: 3.3 - 4.4 LOW RISK 4.4 - 7.1 AVERAGE RISK 7.1 - 11.0 MODERATE RISK >11.0 HIGH RISK Performed By: #### L IPID, CMP, TSH #### [facility] [address] [place] [address] Dr. Kaushik Palomares Cholesterol [Mass/Vol] 168 mg/dL Normal <=200 [facility] Comment on above: Performed By: #### L IPID, CMP, TSH #### [facility] [address] [place] [address] Dr. Kaushik Palomares Cholesterol in HDL [Mass/Vol] 41 mg/dL Normal 40-60 [facility] Comment on above: Performed By: #### L IPID, CMP, TSH #### [facility] [address] [place] [address] Dr. Kaushik Palomares Cholesterol in LDL [Mass/Vol] 90.2 mg/dL Normal [facility] Comment on above: Performed By: #### L IPID, CMP, TSH #### [facility] [address] [address] [address] Kaushik Palomares Cholesterol.total/Mali sterol in HDL [Mass ratio] 4.1 {ratio} Normal [facility] Comment on above: Performed By: #### L IPID, CMP, TSH #### [facility] [address] [address] [address] Kaushik Palomares HDL NORMAL > or = 60 mg/dl - LO W CARDIOVASCULAR RISK <40 mg/dl - HIGH CARDIOVASCULAR RISK Normal [facility] Comment on above: Performed By: #### L IPID, CMP, TSH #### [facility] [address] [place] [address] Dr. Kaushik Palomares LDL CALC NORMAL SEE BELOW Normal [facility] Comment on above: Result Comment: <100 mg/dl OPTIMAL 100 - 129 mg/dl NEAR OR ABOVE OPTIMAL 130 - 159 mg/dl BORDERLINE HIGH 160 - 189 mg/dl HIGH >190 mg/dl VERY HIGH Performed By: #### L IPID, CMP, TSH #### [facility] [address] [place] [address] Dr. Kaushik Palomares Triglyceride [Mass/Vol] 184 mg/dL Critically high <=150 [facility] Comment on above: Performed By: #### L IPID, CMP, TSH #### [facility] [address] [address] [address] Kaushik Palomares VLDL CALC 36.8 mg/dL Normal [facility] Comment on above: Performed By: #### L IPID, CMP, TSH #### [facility] [address] [address] [address] Kaushik Palomares MICROALBUMIN, RAND URon 06-0 mALB 2.0 mg/L Normal <=30.0 [facility] Comment on above: Performed By: #### C BC #### [facility] [address] [address] [address] Kaushik Palomares PROF 14(COMP METB)on 022 Albumin [Mass/Vol] 3.7 g/dL Normal 3.4-5.0 [facility] Comment on above: Performed By: #### L IPID, CMP, TSH #### [facility] [address] [address] [address] Kaushik Palomares Albumin/Globulin [Mass ratio] 0.9 {ratio} Normal [facility] Comment on above: Performed By: #### L IPID, CMP, TSH #### [facility] [address] [address] [address] Kaushik Palomares ALP [Catalytic activity/Vol] 53 U/L Normal 46-116 [facility] Comment on above: Performed By: #### L IPID, CMP, TSH #### [facility] [address] [place] [address] Dr. Kaushik Palomares ALT [Catalytic activity/Vol] 44 U/L Normal 14-59 [facility] Comment on above: Performed By: #### L IPID, CMP, TSH #### [facility] [address] [address] [address] Kaushik Palomares Anion gap [Moles/Vol] 6.8 mmol/L Normal [facility] Comment on above: Performed By: #### L IPID, CMP, TSH #### [facility] [address] [place] [address] Dr. Kaushik Palomares AST [Catalytic activity/Vol] 22 U/L Normal 15-37 [facility] Comment on above: Performed By: #### L IPID, CMP, TSH #### [facility] [address] [address] [address] Kaushik Palomares Bilirubin [Mass/Vol] 0.3 mg/dL Normal 0.2-1.0 [facility] Comment on above: Performed By: #### L IPID, CMP, TSH #### [facility] [address] [place] [address] Dr. Kaushik Palomares Calcium [Mass/Vol] 9.2 mg/dL Normal 8.5-10.1 [facility] Comment on above: Performed By: #### L IPID, CMP, TSH #### [facility] [address] [address] [address] Kaushik Palomares Chloride [Moles/Vol] 102 mmol/L Normal 98-107 [facility] Comment on above: Performed By: #### L IPID, CMP, TSH #### [facility] [address] [place] [address] Dr. Kaushik Palomares CO2 [Moles/Vol] 31.4 mmol/L Normal 21.0-32.0 [facility] Comment on above: Performed By: #### L IPID, CMP, TSH #### [facility] [address] [address] [address] Kaushik Palomares Creatinine [Mass/Vol] 0.71 mg/dL Normal 0.55-1.02 [facility] Comment on above: Performed By: #### L IPID, CMP, TSH #### [facility] [address] [place] [address] Dr. Kaushik Palomares EGFR-AF PAKISTANI >60 Normal >=60 [facility] Comment on above: Performed By: #### L IPID, CMP, TSH #### [facility] [address] [place] [address] Dr. Kaushik Palomares EGFR-NON AF PAKISTANI >60 Normal >=60 [facility] Comment on above: Performed By: #### L IPID, CMP, TSH #### [facility] [address] [place] [address] Dr. Kaushik Palomares Globulin (S) [Mass/Vol] 4.2 g/dL Normal T [facility] Comment on above: Performed By: #### L IPID, CMP, TSH #### [facility] [address] [place] [address] Dr. Kaushik Palomares Glucose [Mass/Vol] 93 mg/dL Normal 74-106 [facility] Comment on above: Performed By: #### L IPID, CMP, TSH #### [facility] [address] [place] [address] Dr. Kaushik Palomares Potassium [Moles/Vol] 4.2 mmol/L Normal 3.5-5.1 [facility] Comment on above: Performed By: #### L IPID, CMP, TSH #### [facility] [address] [address] [address] Kaushik Palomares Protein [Mass/Vol] 7.9 g/dL Normal 6.4-8.2 [facility] Comment on above: Performed By: #### L IPID, CMP, TSH #### [facility] [address] [place] [address] Dr. Kaushik Palomares Sodium [Moles/Vol] 136 mmol/L Normal 136-145 [facility] Comment on above: Performed By: #### L IPID, CMP, TSH #### [facility] [address] [place] [address] Dr. Kaushik Palomares Urea nitrogen [Mass/Vol] 11.0 mg/dL Normal 7.0-18.0 [facility] Comment on above: Performed By: #### L IPID, CMP, TSH #### [facility] [address] [place] [address] Dr. Kaushik Palomares Urea nitrogen/Creatinine [Mass ratio] 15.5 mg/mg Normal [facility] Comment on above: Performed By: #### L IPID, CMP, TSH #### [facility] [address] [place] [address] Dr. Kaushik Palomares TSHon 01-21-2022 TSH 1.298 uIU/mL Normal 0.358-3.740 [facility] Comment on above: Performed By: #### C BC #### [facility] [address] [place] [address] Dr. Kaushik Palomares TSH RANGE SEE BELOW Normal [facility] Comment on above: Result Comment: <0.3 4 UIU/ml HYPERTHYROID 0.34-5.60 UIU/ml EUTHYROID >5.60 UIU/ml HYPOTHYROID Performed By: #### C BC #### [facility] [address] [place] [address] Dr. Kaushik Palomares COVID Quick Testingon 2020 Result Negative [facility] Other Quick Strepon 06-17-2021 S. pyogenes Org specific cx Ql (Throat) Negative [employer] Other Quick Strep [facility] Other Urinalysis - AUTOMATEDon Appearance (U) cloudy [facility] Other Bilirubin Ql (U) Negative [employer] Other Color (U) yellow [facility] Other Glucose Ql (U) Negative [facility] Other Hemoglobin Ql (U) large [employer] Other Ketones Ql (U) Negative [facility] Other Leukocyte esterase Test strip Ql (U) trace [facility] Other Nitrite Ql (U) Positive [facility] Other pH (U) 5.5 [pH] [facility] Other Protein Ql (U) 100 [facility] Other Specific gravity (U) [Rel density] 1.025 [facility] Other Urobilinogen (U) [Mass/Vol] 0.2 mg/dL [facility] Other Urinalysis - AUTOMATED No rt [employer] Other Urine Cultureon 05-31-2021 Urine Culture >100,000 [facility] Other Urine Culture <16 [facility] Other Urine Culture >16 [facility] Other Urine Culture <4 [facility] Other Urine Culture 8 [facility] Other Urine Culture <2 [facility] Other Urine Culture <1 [facility] Other Urine Culture >2 [facility] Other Urine Culture <0.5 [facility] [employer] Other Urine Culture >8 [facility] Other Urine Culture >4 [facility] Other Urine Culture <32 [facility] Other Urine Culture >2/38 [facility] [employer] Other Vital Signs Date Time Vital Sign Value 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 10-08-2023 10:50-0500 Body height 162.56 cm ROSITA Marc Work Phone: [facility] 10-08-2023 10:50-0500 Body weight 139.25 kg ROSITA Marc Work Phone: [facility] 10-01-2023 09:20-0500 Body height 162.56 cm ROSITA Marc Work Phone: [facility] 10-01-2023 09:20-0500 Body mass index (BMI) [Ratio] 53.6 kg/m2 WIRE STRANDERJosé Miguel Marc Work Phone: [facility] 10-01-2023 09:20-0500 Body weight 141.69 kg ROSITA Marc Work Phone: [facility] 10-01-2023 09:20-0500 Diastolic blood pressure 75 mm[Hg] ROSITA Marc Work Phone: [facility] 10-01-2023 09:20-0500 Heart rate 85 /min ROSITA Marc Work Phone: [facility] 10-01-2023 09:20-0500 Respiratory rate 18 /min ROSITA Marc Work Phone: [facility] 10-01-2023 09:20-0500 SaO2% (BldA) [Mass fraction] 99 % WIRE STRANDERJosé Miguel Parksacher Work Phone: [facility] 10-01-2023 09:20-0500 Systolic blood pressure 123 mm[Hg] WIRE STRANDERJosé Miguel Barclayrbacher Work Phone: [facility] 09-03-2023 08:00-0500 Body height 162.56 cm WIRE STRANDERJosé Miguel Barclayrbacher Work Phone: [facility] 09-03-2023 08:00-0500 Body weight 138.79 kg WIRE STRANDERJosé Miguel Barclayrbacher Work Phone: [facility] 09-03-2023 08:00-0500 Diastolic blood pressure 78 mm[Hg] WIRE STRANDERJosé Miguel ColladoManisha Denyrbacher Work Phone: [facility] 09-03-2023 08:00-0500 Systolic blood pressure 118 mm[Hg] WIRE STRANDERJosé Miguel Barclayrbacher Work Phone: [facility] 08-19-2023 09:45-0500 Body height 162.56 cm Nely Cruz Other [facility] 08-13-2023 14:00-0500 Body height 162.56 cm Manisha Marc Other [facility] 08-13-2023 14:00-0500 Body mass index (BMI) [Ratio] 52.35 kg/m2 Manisha Marc Other [facility] [employer] Other 08-13-2023 14:00-0500 Body weight 138.35 kg Manisha Parksacher Other [facility] [employer] Other 08-13-2023 14:00-0500 Body weight 138.34 kg ROSITA Parksacher Work Phone: [facility] 08-13-2023 14:00-0500 Diastolic blood pressure 80 mm[Hg] Manisha Marc Other [facility] 08-13-2023 14:00-0500 SaO2% (BldA) [Mass fraction] 98 % Manisha Marc Other [facility] Other 08-13-2023 14:00-0500 Systolic blood pressure 114 mm[Hg] Manisha Marc Other [facility] 07-15-2023 07:45-0500 Body height 162.56 cm [employer] Other [facility] 07-15-2023 07:45-0500 Body mass index (BMI) [Ratio] 52.98 kg/m2 [employer] Other [facility] Other 07-15-2023 07:45-0500 Body weight 140.03 kg [employer] Other [facility] Other 07-15-2023 07:45-0500 Body weight 140.02 kg ROSITA Marc Work Phone: [facility] 07-15-2023 07:45-0500 Diastolic blood pressure 66 mm[Hg] [employer] Other [facility] 07-15-2023 07:45-0500 Respiratory rate 18 /min [employer] Other [facility] Other 07-15-2023 07:45-0500 SaO2% (BldA) [Mass fraction] 98 % [employer] Other [facility] Other 07-15-2023 07:45-0500 Systolic blood pressure 112 mm[Hg] [employer] Other [facility] 07-07-2023 11:15-0500 Body height 162.56 cm Michelle Oma Other [facility] 07-07-2023 11:15-0500 Body mass index (BMI) [Ratio] 52.69 kg/m2 Michelle Oma Other [facility] Other 07-07-2023 11:15-0500 Body temperature 98 [degF] Michelle Oma Other [facility] Other 07-07-2023 11:15-0500 Body weight 139.26 kg Michelle Oma Other [facility] Other 07-07-2023 11:15-0500 Body weight 139.25 kg ROSITA Marc Work Phone: [facility] 07-07-2023 11:15-0500 Respiratory rate 20 /min Michelle Oma Other [facility] Other 07-07-2023 11:15-0500 SaO2% (BldA) [Mass fraction] 98 % Michelle Oma Other [facility] Other 06-29-2023 10:20-0500 Body height 162.56 cm Michelle Oma Other [facility] Other 06-29-2023 10:20-0500 Body mass index (BMI) [Ratio] 53.03 kg/m2 Michelle Oma Other [facility] Other 06-29-2023 10:20-0500 Body temperature 99.7 [degF] Michelle Oma Other [facility] Other 06-29-2023 10:20-0500 Body weight 140.16 kg Michelle Oma Other [facility] Other 06-29-2023 10:20-0500 Respiratory rate 19 /min Michelle Ernandez Other [facility] Other 06-29-2023 10:20-0500 SaO2% (BldA) [Mass fraction] 98 % Michelle Ernandez Other [facility] Other 06-11-2023 15:30-0400 Body height 162.56 cm Manisha Marc Other [facility] Other 06-11-2023 15:30-0400 Body mass index (BMI) [Ratio] 53.79 kg/m2 Manisha Marc Other [facility] Other 06-11-2023 15:30-0400 Body weight 142.16 kg Manisha Marc Other [facility] Other 06-11-2023 15:30-0400 Diastolic blood pressure 62 mm[Hg] Manisha Marc Other [facility] Other 06-11-2023 15:30-0400 SaO2% (BldA) [Mass fraction] 99 % Manisha Marc Other [facility] Other 06-11-2023 15:30-0400 Systolic blood pressure 126 mm[Hg] Manisah Marc Other [facility] Other 05-06-2023 13:40-0400 Body height 162.56 cm Casandra Hassan Other [facility] Other 05-06-2023 13:40-0400 Body mass index (BMI) [Ratio] 53.65 kg/m2 Casandra Hassan Other [facility] Other 05-06-2023 13:40-0400 Body temperature 98.4 [degF] Casandra Sonya Other [facility] Other 05-06-2023 13:40-0400 Body weight 141.8 kg Casandra Sonya Other [facility] Other 05-06-2023 13:40-0400 Diastolic blood pressure 81 mm[Hg] Casandra Sonya Other [facility] Other 05-06-2023 13:40-0400 Respiratory rate 18 /min Casandra Sonya Other [facility] Other 05-06-2023 13:40-0400 SaO2% (BldA) [Mass fraction] 95 % Casandra Sonya Other [facility] Other 05-06-2023 13:40-0400 Systolic blood pressure 134 mm[Hg] Casandra Hassan Other [facility] Other 04-30-2023 08:30-0400 Body height 162.56 cm Manisha Marc Other [facility] Other 04-30-2023 08:30-0400 Body mass index (BMI) [Ratio] 53.86 kg/m2 Manisha Marc Other [facility] Other 04-30-2023 08:30-0400 Body weight 142.34 kg Manisha Marc Other [facility] Other 04-30-2023 08:30-0400 Diastolic blood pressure 82 mm[Hg] Manisha Marc Other [facility] Other 04-30-2023 08:30-0400 SaO2% (BldA) [Mass fraction] 100 % Manisha Marc Other [facility] Other 04-30-2023 08:30-0400 Systolic blood pressure 120 mm[Hg] Manisha Marc Other [facility] Other 04-29-2023 07:00-0400 Body height 162.56 cm [employer] Other [facility] Other 04-29-2023 07:00-0400 Body mass index (BMI) [Ratio] 54.41 kg/m2 Nely [employer] Other [facility] Other 04-29-2023 07:00-0400 Body weight 143.79 kg Neyl Fitt Other [facility] Other 03-25-2023 13:45-0400 Body height 162.56 cm [employer] Other [facility] Other 03-25-2023 13:45-0400 Body mass index (BMI) [Ratio] 55.45 kg/m2 [employer] Other [facility] Other 03-25-2023 13:45-0400 Body weight 146.56 kg [employer] Other [facility] Other 08-08-2023 13:45-0400 Diastolic blood pressure 57 mm[Hg] Celio Mullins Other [facility] Other 03-25-2023 13:45-0400 Respiratory rate 18 /min Celio Mullins Other [facility] Other 03-25-2023 13:45-0400 SaO2% (BldA) [Mass fraction] 97 % Celio Mullins Other [facility] Other 03-25-2023 13:45-0400 Systolic blood pressure 106 mm[Hg] Celio Mullins Other [facility] Other 02-11-2023 12:15-0400 Body height 163.83 cm Casandra Hassan Other [facility] Other 02-11-2023 12:15-0400 Body mass index (BMI) [Ratio] 54.88 kg/m2 Casandra Hassan Other [facility] Other 02-11-2023 12:15-0400 Body temperature 98 [degF] Casandra Hassan Other [facility] Other 02-11-2023 12:15-0400 Body weight 147.33 kg Casandra Hassan Other [facility] Other 02-11-2023 12:15-0400 Diastolic blood pressure 85 mm[Hg] Casandra Hassan Other [facility] Other 02-11-2023 12:15-0400 Respiratory rate 18 /min Casandra Hassan Other [facility] Other 02-11-2023 12:15-0400 SaO2% (BldA) [Mass fraction] 98 % Casandra Hassan Other [facility] Other 02-11-2023 12:15-0400 Systolic blood pressure 128 mm[Hg] Casandra Hassan Other [facility] Other 07-13-2022 11:15-0500 Body height 163.83 cm Michelle Haynesmond Other [facility] Other 07-13-2022 11:15-0500 Body mass index (BMI) [Ratio] 51.54 kg/m2 Michelle Oma Other [facility] Other 07-13-2022 11:15-0500 Body temperature 96.6 [degF] Michelle Haynesmond Other [facility] Other 07-13-2022 11:15-0500 Body weight 138.35 kg Michelle Oma Other [facility] Other 07-13-2022 11:15-0500 Respiratory rate 18 /min Michelle Oma Other [facility] Other 07-13-2022 11:15-0500 SaO2% (BldA) [Mass fraction] 96 % Michelle Oma Other [facility] Other 07-06-2021 13:00-0500 Body height 163.83 cm Michelle Oma Other [facility] Other 07-06-2021 13:00-0500 Body mass index (BMI) [Ratio] 49 kg/m2 Michelle Oma Other [facility] Other 07-06-2021 13:00-0500 Body temperature 97.5 [degF] Michelle Oma Other [facility] Other 07-06-2021 13:00-0500 Body weight 131.54 kg Michelle Oma Other [facility] Other 07-06-2021 13:00-0500 SaO2% (BldA) [Mass fraction] 96 % Michelle Oma Other [facility] Other 06-17-2021 11:00-0400 Body height 163.83 cm Michelle Oma Other [facility] Other 06-17-2021 11:00-0400 Body mass index (BMI) [Ratio] 49.68 kg/m2 Michelle Oma Other [facility] Other 06-17-2021 11:00-0400 Body temperature 98.3 [degF] Michelle Oma Other [facility] Other 06-17-2021 11:00-0400 Body weight 133.36 kg Michelle Oma Other [facility] Other 06-17-2021 11:00-0400 Respiratory rate 18 /min Michelle Oma Other [facility] Other 06-17-2021 11:00-0400 SaO2% (BldA) [Mass fraction] 96 % Michelle Oma Other [facility] Other 05-31-2021 13:50-0400 Body height 163.83 cm Michelle Oma Other [facility] Other 05-31-2021 13:50-0400 Body mass index (BMI) [Ratio] 50.36 kg/m2 Michelle Ernandez Other [facility] Other 05-31-2021 13:50-0400 Body temperature 97.8 [degF] Michelle Haynesmond Other [facility] Other 05-31-2021 13:50-0400 Body weight 135.17 kg Michelle Ernandez Other [facility] Other 05-31-2021 13:50-0400 Diastolic blood pressure 90 mm[Hg] Michelle Ernandez Other [facility] Other 05-31-2021 13:50-0400 Respiratory rate 18 /min Michelle Ernandez Other [facility] Other 05-31-2021 13:50-0400 SaO2% (BldA) [Mass fraction] 98 % Michelle Ernandez Other [facility] Other 05-31-2021 13:50-0400 Systolic blood pressure 150 mm[Hg] Michelle Oma Other [facility] Other Encounters Encounter Date Encounter Type Care Provider Facility Start: 10-08-2023 End: 10-08-2023 ambulatory Akil Cox Facility:[facility] Start: 10-08-2023 End: 10-08-2023 ambulatory ROSITA Marc Work Phone: [facility] Work Phone: Start: 10-08-2023 End: 10-08-2023 Patient encounter procedure ROSITA Marc Work Phone: [facility] [place] Work Phone: Start: 10-06-2023 End: 10-07-2023 ambulatory Bud Combs MD Facility: [facility] Start: 10-06-2023 Non-patient / Non-visit ROSITA Marc Work Phone: [facility] Work Phone: Start: 10-01-2023 ambulatory Celio Mullins Facility :[facility] Start: 10-01-2023 End: 10-01-2023 ambulatory ROSITA Marc Work Phone: [facility] Work Phone: Start: 10-01-2023 End: 10-01-2023 Patient encounter procedure ROSITA Marc Work Phone: [facility] Work Phone: Start: 09-08-2023 End: 09-09-2023 ambulatory Bud Combs MD Facility:[facility] Start: 09-03-2023 End: 09-03-2023 Patient encounter procedure ROSITA Marc Work Phone: [facility]- Start: 08-19-2023 IBT FOR OBESITY GROU P 2-10 30M Nely Cruz [facility] Start: 08-19-2023 End: 08-19-2023 ambulatory Manisha Marc [facility] Other Start: 08-19-2023 Registered Recurring ROSITA Marc Work Phone: [facility] Work Phone: Start: 08-19-2023 End: 08-19-2023 Patient encounter procedure ROSITA Marc Work Phone: [facility] Work Phone: Start: 08-14-2023 ambulatory Edward Richey acility:[facility] Start: 08-14-2023 Registered Recurring WIRE STRANDERJosé Miguel Marc Work Phone: [facility] Start: 08-13-2023 End: 08-13-2023 ambulatory Manisha Marc Other [facility] Other Start: 08-13-2023 Office outpatient visit 15 minutes Manisha [facility] Start: 08-13-2023 End: 08-13-2023 Patient encounter procedure WIRE STRANDERJosé Miguel Marc Work Phone: [facility] Work Phone: Start: 07-24-2023 End: 07-24-2023 ambulatory MELA ANDERSON Not Available Start: 07-21-2023 End: 07-22-2023 ambulatory Bud Combs MD Facility:[facility] Start: 07-19-2023 End: 07-19-2023 ambulatory Clinton Frazier Facility:[facility] Start: 07-19-2023 End: 07-19-2023 ambulatory ROSITA Marc Work Phone: [facility] Work Phone: Start: 07-19-2023 End: 07-19-2023 Patient encounter procedure ROSITA Marc Work Phone: [facility] Start: 07-15-2023 End: 07-15-2023 ambulatory Celio Mullins Other [facility] Other Start: 07-15-2023 Follow-up encounter Celio Mullins [facility] Start: 07-15-2023 End: 07-15-2023 Patient encounter procedure ROSITA Marc Work Phone: [facility] Work Phone: Start: 07-07-2023 End: 07-07-2023 ambulatory Michelle Oma Other [facility] Other Start: 07-07-2023 Office outpatient visit 15 minutes Michelle Oma [facility] Start: 07-07-2023 End: 07-07-2023 Patient encounter procedure ROSITA Marc Work Phone: [facility] Work Phone: Start: 07-03-2023 Registered Recurring ROSITA Marc Work Phone: [facility] Start: 07-03-2023 End: 07-03-2023 ambulatory Celio Mullins Facility:[facility] Start: 07-03-2023 End: 07-03-2023 ambulatory ROSITA Marc Work Phone: [facility] Work Phone: Start: 07-03-2023 End: 07-03-2023 Patient encounter procedure ROSITA Marc Work Phone: [facility] [place] Work Phone: Start: 07-01-2023 End: 07-01-2023 ambulatory Manisha Marc Facility:[facility] Start: 07-01-2023 End: 07-01-2023 Patient encounter procedure ROSITA Marc Work Phone: [facility] [place] Work Phone: Start: 06-29-2023 End: 06-29-2023 ambulatory Michelle Oma Other [facility] Other Start: 06-29-2023 Office outpatient visit 15 minutes Michelle Oma [facility] Start: 06-17-2023 Registered Recurring ROSITA Keaner Work Phone: [facility] Work Phone: Start: 06-11-2023 End: 06-11-2023 ambulatory Manisha Tari Other [facility] Other Start: 06-11-2023 Office outpatient visit 25 minutes Manisha Marc [facility] Start: 05-06-2023 End: 05-06-2023 ambulatory Casandra Hassan Other [facility] Other Start: 05-06-2023 Office outpatient visit 10 minutes Casandra Hassan [facility] Start: 05-01-2023 End: 05-01-2023 ambulatory Manisha Marc Other [facility] Other Start: 05-01-2023 Telephone encounter Manisha Jacky [facility] Start: 04-30-2023 End: 04-30-2023 ambulatory Manisha Tari Other [facility] Other Start: 04-30-2023 Encounter for genera l adult medical examination without abnormal findings Manisha Marc [facility] Start: 04-30-2023 Periodic preventive med est patient 18-39 yrs Manisha Marc [facility] Start: 04-29-2023 ([facility] WMNI) WMN Initial Provider Nely Cruz [facility] Start: 04-29-2023 End: 04-29-2023 ambulatory Nely Cruz Other [facility] Other Start: 03-25-2023 End: 03-25-2023 ambulatory Celio Mullins Other [facility] Other Start: 03-25-2023 Nutrition therapy Celio Mullins [facility] Start: 03-25-2023 Telephone encounter Celio Mullins [facility] Start: 03-14-2023 End: 03-14-2023 ambulatory Nely Cruz Other [facility] Other Start: 03-14-2023 Telephone encounter Nely Cruz [facility] Start: 02-11-2023 End: 02-11-2023 ambulatory Casandra Hassan Other [facility] Other Start: 02-11-2023 Office outpatient visit 15 minutes Casandra Hassan [facility] Start: 12-31-2022 End: 01-01-[address] TOBIAS OSCAR . Facility:[facility] Start: 11-26-2022 End: 11-27-[address] TOBIAS OSCAR . Facility:[facility] Start: 11-08-2022 End: 11-09-[address] BOOM ROD Facility:[facility] Start: 10-28-2022 End: 10-28-[address] TOBIAS OSCAR . Facility:[facility] Start: 07-13-2022 End: 07-13-2022 ambulatory Michelle Ernandez Other [facility] Other Start: 07-13-2022 Office outpatient visit 15 minutes Michelle Oma [facility] Start: 03-07-2022 End: 03-08-[address] BOOM ROD Facility:[facility] Start: 01-25-2022 Encounter for genera l adult medical examination without abnormal findings DR BOOM ROD [facility] Start: 01-21-2022 End: 01-22-[address] BOOM ROD Facility:[facility] Start: 01-21-2022 End: 01-22-2022 Encounter for general adult medical examination without abnormal findings DR BOOM ROD Facility:[facility] Start: 07-06-2021 End: 07-06-2021 ambulatory Michelle Ernandez Other [facility] Other Start: 07-06-2021 Office outpatient visit 15 minutes Michelle Oma [facility] Start: 06-17-2021 Office outpatient visit 15 minutes Michelle Ernandez [facility] Start: 05-31-2021 Office outpatient visit 25 minutes Michelle Ernandez [facility] Start: 08-27-2018 End: 08-27-2018 ambulatory BRENT KINNEY Facility:[facility] Procedures Date Procedure Procedure Detail Performing Clinician Start: 10-08-2023 MRI of head WIRE STRANDER Heaven Marc Work Phone: Start: 05-31-2021 Piperacillin/tazobactam Michelle Ernandez Other Start: 08-27-2018 extraction, erupted tooth or exposed root (elevation and/or forceps removal) BRENT TROCONIS Start: 08-27-2018 removal of impacted tooth - soft tissue BRENT TROCONIS Start: 08-27-2018 Urine test visual color cmprsn meths BRENT TROCONIS Immunizations Immunization Date Immunization Notes Care Provider Lillie rogers 03-03-2021 Do not use COVID-19 Pfizer 2 dose Manisha Marc Other [facility] 02-10-2021 Do not use COVID-19 Pfizer 2 dose Manisha Marc Other [facility] 08-03-2018 Toradol per 15 mg Michelle Dym ond Other [facility] Other Payers Date Payer Category Payer Self-pay [id number] 2022 Self-pay [id number] 2022 Private Health Insurance 1991 Unknown [id number] [id number]. 732 1991 Unknown [id number] .16.840.1.073868.3.579.2. 593 1991 Unknown [id number] 2.16.840.1.105332.3.579.2. 593 1991 Unknown [id number] 2.16.840.1.550241.3.579.2. 593 1991 Unknown [id number] 2.16.840.1.697091.3.579.2. 593 1991 Unknown [id number] 2.16.840.1.274678.3.579.2. 593 1991 Unknown [id number] 2.16840.1.414698.3.579.2. 593 1991 Unknown [id number] 2.16.840.1.685330.3.579.2. 1259 1991 Unknown [id number] 2.840.1.998310.3.579.2. 196 1991 Unknown [id number] 2.840.1.934099.3.579.2. 196 1991 Unknown [id number] 2.0.1.390060.3.579.2. 196 1959 Medicaid [id number] 1959 Unknown [id number] Unknown [place] [id number] Unknown [id number] 2.840.1.005915.3.579.2. 531 Unknown [id number] 2.840.1.718490.3.579.2. 531 Unknown [id number] 2.840.1.556526.3.579.2. 531 Unknown [id number] 2.840.1.264923.3.579.2. 531 Unknown [id number] 2.16840.1.169933.3.579.2. 531 Unknown [id number] 2.16840.1.109533.3.579.2. 531 Unknown [id number] 2.840.1.800126.3.579.2. 531 Social History Date Type Detail Facility Unknown if ever smoked [facility] Other Sex Assigned At Sex Assigned At Bir th [facility] Other Start: 12-07-2021 Tobacco smoking status NHIS Never smoked tobacco (finding) [facility] Start: 1990 Sex Assigned At Female F [facility] [place] Clinical Notes 05-31-2021 to 08-19-2023 Note Date [...] method for meal planning ; grocery shortcuts [facility] [employer] Other 12-27-2023 Evaluation note* Encounter Date Diagnosis [...] You have been given relevant education handouts. [facility] Other 11-28-2023 Evaluation note* Encounter Date Diagnosis [...] voice recognition software. Please excuse errors in pretzel twister. Jun, Dietary surveillance and counseling (ICD-10 - [...] metformin 1000 mg total daily, managed by [facility] Jun, Asthma (ICD-10 - J45.909) Jun, Migraine (ICD-10 - G43.909) Jun, Primary hypertension (ICD-10 - I10) Currently on pharmacotherapy Potential for overtreatment given lightheadedness Jun, Other An additional 9 minutes was spent counseling the patient on behavior modification including proper nutrition and physical activity. [facility] Other 11-20-2023 Evaluation note* Encounter Date Diagnosis [...] until you feel better. You may take [id number] Imodium for diarrhea as needed. Avoid dairy foods as well as greasy fried foods. Follow-up with your physician if no improvement in 2 to 3 days. May return to work on Jun, Diarrhea, unspecified type (ICD-10 - R19.7) Diarrhea: adult home care material was printed [facility] Other 11-12-2023 Evaluation note* Encounter Date Diagnosis [...] to 3-day Jun, Bronchitis (ICD-10 - J40) [facility] Other 10-25-2023 Evaluation note* Encounter Date Diagnosis Assessment Notes Treatment Notes Treatment Clinical Notes May, Degenerative lumbar disc (ICD-10 - M51.36) L4-5 Pt would like a referral to pain management regarding her chronic back pain. Her last x-ray of the lumbar spine was completed 10/2022 at [facility]--reviewed and in scanned documents. Referral placed. May, [...] disorder (ICD-10 - F31.81) Referral placed to [facility] for medication mangement. [facility] Other 09-19-2023 Evaluation note* Encounter Date Diagnosis Assessment Notes Treatment Notes Treatment Clinical Notes Apr, Exposure to head lice (ICD-10 - Z20.7) Discussed with patient exam is without any signs of current lice infection. May return to work tomorrow. Patient completed next treatment yesterday. Patient verbalized understanding. [facility] Other 09-14-2023 Evaluation note* Encounter Date Diagnosis Assessment Notes Treatment Notes Treatment Clinical Notes Apr, Primary hypertension (ICD-10 - I10) [facility] Other 09-13-2023 Evaluation note* Encounter Date Diagnosis [...] (ICD-10 - R73.01) Will obtain records from [facility] for most recent labs. Patient is [...] Low back pain, unspecified (ICD-10 - M54.50) [facility] Other 09-12-2023 Evaluation note* Encounter Date Diagnosis [...] 2) Aim for < 45 g carb/meal [facility] Other 08-08-2023 Evaluation note* Encounter Date Diagnosis [...] voice recognition software. Please excuse errors in pretzel twister. Mar, Dietary surveillance and counseling (ICD-10 - [...] with the patient, and documenting clinical information. [facility] Other 06-27-2023 Evaluation note* Encounter Date Diagnosis [...] 7 days, sooner if significantly worsening symptoms. [facility] Other 11-26-2022 Evaluation note* Encounter Date Diagnosis [...] 3 days. Off work today and tomorrow [facility] Other 11-19-2021 Evaluation note* Encounter Date Diagnosis [...] Patient care instructions given in writting by [employer] document. [facility] Other 10-31-2021 Evaluation note* Encounter Date Diagnosis [...] Patient care instructions given in writting by [employer] document. [facility] Other 10-14-2021 Evaluation note* Encounter Date Diagnosis Assessment Notes Treatment Notes Treatment Clinical Notes May, Dysuria (ICD-10 - R30.0) May, Urinary tract infection, site not specified (ICD-10 - N39.0) May, Hematuria, unspecified (ICD-10 - R31.9) [facility] Other Evaluation noteNo Information[employer] Other Evaluation noteNo assessment information [facility] Work Phone: Evaluation note* Diagnosis Onset Date Resolution Status Dietary surveillance and counseling acute Exercise counseling acute Food insecurity acute PCOS (polycystic ovarian syndrome) acute Prediabetes acute Severe obesity (BMI >= 40) a [facility] Work Phone: history general Narrative - [...] History Hospitalized for blood l oss 2010 [facility] Other history general Narrative - Reported* Type [...] History Hospitalized for blood l oss 2010 [facility] Other history general Narrative - Reported* Type [...] History Hospitalized for blood l oss 2010 [facility] Other history general Narrative - Reported* Type [...] History Hospitalized for blood l oss 2010 [facility] Other history general Narrative - Reported* Type [...] History Hospitalized for blood l oss 2010 [facility] Other history general Narrative - Reported* Type [...] History Hospitalized for blood l oss 2010 [facility] Other Hisqaae general Narrative - Reported* Type Description Date [...] History Hospitalized for blood l oss 2010 [facility] Other Reason for referral (narrative)* Reason *FU 06/20 [facility] was recently diagnosed with bipolar and would like medication management. Diagnosis 1 Bipolar 2 disorder ( F31.81) Referral Organization [facility] sharan Referring Provider First Name Manisha Referring Provider Last Name Rohrbacher Referring Provider Specialty Nurse Pract itioner Ref[facility] [place] Referred Address [address],[place] ,[place],[address] Referred Provider Specialty Psychiatry Referral Priority Routine General Notes MasontaniaPaola willard 01:25:30 PM >received today, not sure if [facility] does medication management, waiting for notes to be locked Paola Henderson 06/13/2023 10:34:39 AM >notes locked, referral faxed Clinical Notes p: [phone] f: [phone] [facility] [place] Reason *FU 06/20 would li ke a referral to pain management for other options for pain control for back pain Diagnosis 1 Degenerative lumbar disc (M51.36) Referral Organization [facility] sharan Referring Provider First Name Manisha Referring Provider Last Name Charlyacher Referring Provider Specialty Nurse Pract itmelidar Referred Organization [facility] Referred Provider Yrn Parsons Referred Address [address] [place], [place],[address] Referred Provider Specialty Pain Medicin e Referral Priority Routine General Notes MasonzafarPaola 01:21:23 PM >received today, waiting for notes to be locked Paola Henderson 06/13/2023 10:25:26 AM >notes locked, referral faxed Clinical Notes f: [phone] [facility] Other Summary Purpose Family History No Family [...] syndrome) Prediabetes Severe obesity (BMI >= 40) Chief Complaint Wmn exercise Low Bp-Med Discussion BH Obesity 6 Month Follow Up g40.909 Reason for Visit Dietary surveillance and counseling Exercise counseling Food insecurity PCOS (polycystic ovarian syndrome) Prediabetes Severe obesity (BMI >= 40) Additional Source Comments INFORMATION SOURCE (unrecogn ized section and content) DATE CREATED AUTHOR 08/27/2021 [facility] DATE CREATED AUTHOR AUTHOR'S ORGANIZ ATION 01/01/2023 [facility] DATE CREATED AUTHOR AUTHOR'S ORGANIZ ATION 07/26/2023 [facility] EPIC DATE CREATED AUTHOR AUTHOR'S ORGANIZ ATION 10/15/2023 [facility] DATE CREATED AUTHOR AUTHOR'S ORGANIZ ATION 10/17/2023 [facility] REASON FOR VISIT (unrecogniz ed section [...] Member Role Status Dates Manisha Marc APRN SHEET ROLLER OPERATOR-C Primary Care Provider Active Team Status: Active Member Role Status Dates Manisha Marc APRN SHEET ROLLER OPERATOR-Damion Primary Care Provider, Attending Provider Active Team Status: Inactive Member Role Status Dates Manisha Marc APRN SHEET ROLLER OPERATOR-C Primary Care Provider Active Celio Mullins DO Attending Provider Active Team Status: Inactive Member Role Status Dates Manisha Marc APRN SHEET ROLLER OPERATOR-C Primary Care Provider Active Clinton Frazier MD Attending Provider Active Team Status: Inactive Member Role Status Dates Manisha Marc APRN SHEET ROLLER OPERATOR-C Primary Care Provider Active Start: July 032022 End: July 03, 2023 Celio Mullins DO Attending Provider Active St art: July 03, 2023 End: July 03, 2023 Team Status: Active Member Role Status Dates Manisha Marc APRN SHEET ROLLER OPERATOR-C Primary Care Provider Active Start: July 032022 Edward Gilmore MD Attending Provider Active Start: July 03, 2023 Team Status: Inactive Member Role Status Dates Michelle Ernandez SHEET ROLLER OPERATOR-C Attending Provider Active S tart: July 07, 2023 End: July 07, 2023 Team Status: Inactive Member Role Status Dates Celio Mullins DO Attending Provider Active St art: July 15, 2023 End: July 15, 2023 Team Status: Inactive Member Role Status Dates Manisha Marc APRN SHEET ROLLER OPERATOR-C Primary Care Provider Active Start: July End: July 19, 2023 Clinton Frazier MD Attending Provider Active Start: July 19, 2023 End: July 19, 2023 Team Status: Inactive Member Role Status Dates Manisha Marc APRN SHEET ROLLER OPERATOR-C Attending Provider Act rafal Start: August 13, 2023 End: August 13, 2023 Team Status: Inactive Member Role Status Dates Nely Cage [facility] Attending Provider Active Start: August 19, 2023 End: August 19, 2023 Team Status: Active Member Role Status Dates Manisha Marc APRN SHEET ROLLER OPERATOR-C Primary Care Provider, Attending Provider Active Start: August 19, 2023 Team Status: Inactive Member Role Status Dates Manisha Marc APRN SHEET ROLLER OPERATOR-C Attending Provider Act rafal Start: September 03, 2023 End: September 03, 2023 Team Status: Inactive Member Role Status Dates Manisha Marc APRN SHEET ROLLER OPERATOR-C Primary Care Provider Active Start: October 012023 End: October 01, 2023 Celio Mullins DO Attending Provider Active St art: October 01, 2023 End: October 01, 2023 Team Status: Active Member Role Status Dates Manisha Marc APRN SHEET ROLLER OPERATOR-C Primary Care Provider Active Start: August 142022 Edward Gilmore MD Attending Provider Active Start: August 14, 2023 Team Status: Active Member Role Status Dates Manisha Marc APRN SHEET ROLLER OPERATOR-Damion Primary Care Provider, Attending Provider Active Start: October 06, 2023 Team Status: Inactive Member Role Status Dates Manisha Marc APRN SHEET ROLLER OPERATOR-Damion Primary Care Provider Active Start: October 082023 End: October 08, 2023 Akil Cox DO Attending Provider Active Start: October 08, 2023 End: October 08, 2023 Goals (unrecognized section and content) Goals [...] BE BASED ON THE PRIMARY CLINICAL RECORDS. [facility] [employer] provides no warranty or guarantee of the accuracy or completeness of information in this document.
--- NOTE | 2023-10-30 12:34 | ED_ITS ---
HPI - Female Genitourinary General Chief complaint: Urogenital-Female Stated complaint: HEAVY VAGINAL BLEEDING, LIGHT HEADED Time Seen by Provider: 10/30/23 12:30 Source: patient Mode of arrival: Wheelchair Limitations: no limitations History of Present Illness HPI Narrative: 33-year-old female presents for heavy vaginal bleeding. She has a history of PCOS and started bleeding about 13 days ago. It started off relatively light but its gotten heavier. She has a mild headache but no abdominal pain and has not had a fever or vomiting. She has had to have blood transfusions twice because of heavy vaginal bleeding. Related Data Home Medications Medication Instructions Recorded Confirmed albuterol sulfate 90 mcg/actuation 2 inh inhalation Q6H PRN shortness 01/17/23 10/30/23 aerosol inhaler (ProAir HFA) of breath or wheezing duloxetine 30 mg capsule,delayed 120 mg PO QDAY 01/17/23 10/30/23 release gabapentin 300 mg capsule 300 mg PO Q12H PRN pain 01/17/23 10/30/23 lisinopril 20 mg tablet 20 mg PO DAILY 01/17/23 10/30/23 metformin 500 mg tablet 500 mg PO BID 01/17/23 10/30/23 valacyclovir 1 gram tablet 1,000 mg PO BID 06/25/23 10/30/23 coenzyme Q10 100 mg capsule (Co 200 mg PO DAILY 10/30/23 10/30/23 Q-10) inositol 500 mg tablet 500 mg PO DAILY 10/30/23 10/30/23 lamotrigine 25 mg tablet (Lamictal) 25 mg PO Q12H 10/30/23 10/30/23 Previous Rx's Medication Instructions Recorded megestrol 20 mg tablet See Rx Instructions .Route 10/30/23 .COMPLEX #10 tabs Allergies Allergy/AdvReac Type Severity Reaction Status Date / Time amoxicillin Allergy Rash Verified 09/08/23 08:43 cefaclor Allergy Rash Verified 09/08/23 08:43 erythromycin base Allergy Hives Verified 09/08/23 08:43 Review of Systems ROS Narrative A ten point review of systems is negative except as noted above. [facility] Medical History Herpes genitalia ?A60.00 - Herpesviral infection of urogenital system, unspecified (ICD-10) Back pain ?M54.9 - Dorsalgia, unspecified (ICD-10) Arthritis ?M19.90 - Unspecified osteoarthritis, unspecified site (ICD-10) Anemia ?D64.9 - Anemia, unspecified (ICD-10) Depression ?F32.A - Depression, unspecified (ICD-10) Anxiety ?F41.9 - Anxiety disorder, unspecified (ICD-10) COVID-19 ?U07.1 - COVID-19 (ICD-10) Asthma ?J45.909 - Unspecified asthma, uncomplicated (ICD-10) Seizures ?R56.9 - Unspecified convulsions (ICD-10) GERD (gastroesophageal reflux disease) ?K21.9 - Gastro-esophageal reflux disease without esophagitis (ICD-10) Sleep apnea ?G47.30 - Sleep apnea, unspecified (ICD-10) Palpitations ?R00.2 - Palpitations (ICD-10) Prediabetes ?R73.03 - Prediabetes (ICD-10) Hypertension ?I10 - Essential (primary) hypertension (ICD-10) PCOS (polycystic ovarian syndrome) ?E28.2 - Polycystic ovarian syndrome (ICD-10) Abnormal uterine bleeding (AUB) ?N93.9 - Abnormal uterine and vaginal bleeding, unspecified (ICD-10) Menorrhagia ?N92.0 - Excessive and frequent menstruation with regular cycle (ICD-10) Surgical History History of laparoscopy ?Z98.890 - Other specified postprocedural states (ICD-10) History of colposcopy ?Z98.890 - Other specified postprocedural states (ICD-10) History of wisdom tooth extraction ?K08.409 - Partial loss of teeth, unspecified cause, unspecified class (ICD- 10) History of cholecystectomy ?Z90.49 - Acquired absence of other specified parts of digestive tract (ICD- 10) Family History Other Family history of heart disease Family history of stroke Social History Within the past year, how often did you have a drink containing alcohol: monthly or less Smoking status: Never smoker 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 General: The patient appears well and in no apparent distress. Patient is resting comfortably on cart. Skin: Warm, dry, pallor noted. There is no rash noted. Head: Normocephalic, atraumatic Eye: Conjunctiva slightly pale, no drainage Ears, Nose, Mouth, and Throat: oral mucosa is moist. Nares patent. Cardiovascular: Regular Rate and Rhythm Respiratory: Patient is in no distress, no accessory muscle use, lungs are clear to auscultation, no wheezing, rales or rhonchi Back: non-tender GI: no tenderness to palpation, no masses appreciated. No rebound, guarding, or rigidity noted. Musculoskeletal: The patient has no evidence of calf tenderness, no pitting edema, symmetrical pulses noted bilaterally Neurological: A&O, normal speech Psychiatric: Cooperative Constitutional Vital Signs, click to edit/add: Last Vital Signs Pulse 95 H 10/30/23 12:21 Resp 18 10/30/23 12:21 BP 142/84 H 10/30/23 12:21 Pulse Ox 100 10/30/23 12:21 O2 Del Method Room Air 10/30/23 12:21 Course Vital Signs Vital signs: Vital Signs Pulse Rate 95 H 10/30/23 12:21 Respiratory Rate 18 10/30/23 12:21 Blood Pressure 142/84 H 10/30/23 12:21 Pulse Oximetry 100 10/30/23 12:21 Oxygen Delivery Method Room Air 10/30/23 12:21 Pulse Rate 95 H 10/30/23 12:21 Respiratory Rate 18 10/30/23 12:21 Blood Pressure 142/84 H 10/30/23 12:21 Pulse Oximetry 100 10/30/23 12:21 Oxygen Delivery Method Room Air 10/30/23 12:21 MDM - Female Genitourinary MDM Narrative Medical decision making narrative: Hemoglobin is 7.9 and ultrasound shows no acute findings. Case discussed with Dr. Oscar who recommends Megace be prescribed, 20 mg p.o. twice daily for 3 days then 1 p.o. daily and she will see him next week. She has an appointment already scheduled in 4 days. Treatment diagnosis and follow-up were discussed thoroughly with the patient. She was advised to return for heavier bleeding or increasing symptoms. Differential Diagnosis Differential diagnosis: Likely other (, ectopic , dys functional uterine bleeding) Lab Data Attestation: I reviewed the patient's lab results. Labs: Lab Results 10/30/23 Range/Units 12:30 WBC 7.3 (4.0-11.0) 10^3/uL RBC 3.16 L (4.20-5.40) 10^6/uL Hgb 7.9 L (12.0-16.0) g/dL Hct 26.6 L (36.0-48.0) % MCV 84.2 (81.0-99.0) fL MCH 25.0 L (26.7-34.0) pg MCHC 29.7 L (29.9-35.2) g/dL RDW 16.6 H (11.0-15.0) % Plt Count 264 (150-450) 10^3/uL MPV 9.4 L (9.5-13.5) fL Neut % (Auto) 63.9 (43.0-75.0) % Lymph % (Auto) 30.2 (20.5-60.0) % Beckham % (Auto) 3.7 (1.7-12.0) % Eos % (Auto) 1.2 (0.9-7.0) % Baso % (Auto) 0.6 (0.2-2.0) % Neut # (Auto) 4.6 (1.4-6.5) 10^3/uL Lymph # (Auto) 2.2 (1.2-3.8) 10^3/uL Beckham # (Auto) 0.3 (0.3-0.8) 10^3/uL Eos # (Auto) 0.1 (0.0-0.7) 10^3/uL Baso # (Auto) 0.0 (0.0-0.1) 10^3/uL Abs Immat Gran (auto) 0.03 (0.00-0.03) 10^3/uL Imm/Tot Granulo (auto) 0.4 (0.0-0.5) % Sodium 137 (136-145) mmol/L Potassium 4.0 (3.5-5.1) mmol/L Chloride 101 (98-107) mmol/L Carbon Dioxide 28.8 (21.0-32.0) mmol/L Anion Gap 11.2 BUN 8.0 (7.0-18.0) mg/dL Creatinine 0.62 (0.55-1.02) mg/dL Est GFR ( Amer) >60 (>=60) Est GFR (Non-Af Amer) >60 (>=60) BUN/Creatinine Ratio 12.9 Glucose 104 (74-106) mg/dL Calcium 8.5 (8.5-10.1) mg/dL Serum HCG, Qual Negative (NEGATIVE) Imaging Data Pelvic ultrasound: Radiologist's impression: ITS Impressions Transvaginal US 10/30/23 13:19 IMPRESSION: 1. Heterogeneous endometrium measuring 12 mm in thickness which is still within physiologic limits for a premenopausal patient. Otherwise normal appearance of the uterus. No discrete myometrial mass/fibroid. 2. 4.0 cm a dominant simple cyst in the right ovary with left ovary not visualized. Electronically authenticated by: EDUIN OJEDA Date: 10/30/2023 14:18 Discharge Plan Discharge Stand Alone Forms: Portal Instructions Chief Complaint: Urogenital-Female Clinical Impression: DUB (dysfunctional uterine bleeding) Patient Disposition: Home, Self-Care Time of Disposition Decision: 14:38 Condition: Good Mode of Transportation: Private Vehicle Prescriptions / Home Meds: New megestrol 20 mg tablet See Rx Instructions .ROUTE .COMPLEX Qty: 10 0RF Rx Instructions: 20 mg orally twice a day for 3 days then 1 by mouth daily No Action valacyclovir 1 gram tablet 1,000 mg PO BID inositol 500 mg tablet 500 mg PO DAILY lamotrigine [Lamictal] 25 mg tablet 25 mg PO Q12H coenzyme Q10 [Co Q-10] 100 mg capsule 200 mg PO DAILY duloxetine 30 mg capsule,delayed release(DR/EC) 120 mg PO QDAY gabapentin 300 mg capsule 300 mg PO Q12H PRN (Reason: pain) albuterol sulfate [ProAir HFA] 90 mcg/actuation HFA aerosol inhaler 2 inh inhalation Q6H PRN (Reason: shortness of breath or wheezing) lisinopril 20 mg tablet 20 mg PO DAILY metformin 500 mg tablet 500 mg PO BID Instructions: Abnormal (Dysfunctional) Uterine Bleeding (ED) Additional Instructions: See Dr. Oscar at your appointment next week Referrals: CHRIS LOPEZ [Primary Care Provider] - 1 week
[2023-10-30 12:40] LABS: Basophils Percent Auto 0.6 % (0.2-2.0); Eosinophils Absolute Auto 0.1 10^3/uL (0.0-0.7); Eosinophils Percent Auto 1.2 % (0.9-7.0); Hematocrit 26.6 % (36.0-48.0); Hemoglobin 7.9 g/dL (12.0-16.0); Immature Granulocytes Abs Auto 0.03 10^3/uL (0.00-0.03); Immature Granulocytes Pct Auto 0.4 % (0.0-0.5); Lymphocytes Absolute Auto 2.2 10^3/uL (1.2-3.8); Lymphocytes Percent Auto 30.2 % (20.5-60.0); Mean Corpuscular HGB Conc 29.7 g/dL (29.9-35.2); Mean Corpuscular Volume 84.2 fL (81.0-99.0); Mean Platelet Volume 9.4 fL (9.5-13.5); Monocytes Absolute Auto 0.3 10^3/uL (0.3-0.8); Monocytes Percent Auto 3.7 % (1.7-12.0); Neutrophils Absolute Auto 4.6 10^3/uL (1.4-6.5); Neutrophils Percent Auto 63.9 % (43.0-75.0); Platelet Count 264 10^3/uL (150-450); Red Blood Count 3.16 10^6/uL (4.20-5.40); Red Cell Distribution Width 16.6 % (11.0-15.0); White Blood Count 7.3 10^3/uL (4.0-11.0)
[2023-10-30 12:47] LABS: Anion Gap 11.2; BUN Creatinine Ratio 12.9; Calcium 8.5 mg/dL (8.5-10.1); Carbon Dioxide 28.8 mmol/L (21.0-32.0); Chloride 101 mmol/L (98-107); Estimated GFR (African America >60 (>=60); Estimated GFR (Non-African Ame >60 (>=60); Glucose 104 mg/dL (74-106); Sodium 137 mmol/L (136-145)
[2023-10-30 12:51] LABS: HCG Qualitative NEGATIVE (NEGATIVE)
--- NOTE | 2023-10-30 13:19 | US_ITS ---
The [address] [address] Patient Name: DIMITRY PACK MRN: [id number] date: 1990 Sex: F Assigned Patient Location: ER Current Patient Location: ER Accession/Order Number: [id number] Exam Date: 10/30/2023 13:20 Report Date: 10/30/2023 14:18 At the request of: PAYAL WREN Procedure: US pelvis transvaginal Ultrasound pelvis, non-obstetric CLINICAL: heavy bleeding TECHNIQUE: Transabdominal and transvaginal pelvic ultrasound was performed. FINDINGS: Comparison: None. The uterus is anteverted in position. It measures 8.3 x 3.4 x 5.3 cm. There is no discrete myometrial mass. The endometrial complex measures 12 mm in thickness it is diffusely heterogeneous. The right ovary measures 5.0 x 3.7 x 4.3 cm. There is a dominant simple-appearing cyst in the right ovary measuring 4.0 x 3.7 x 3.0 cm. The left ovary is not visualized. There is dopplerable venous flow to the right ovary with resistive index of 0.39. There is no free pelvic fluid or mass seen on either side. US/US pelvis transvaginal IMPRESSION: 1. Heterogeneous endometrium measuring 12 mm in thickness which is still within physiologic limits for a premenopausal patient. Otherwise normal appearance of the uterus. No discrete myometrial mass/fibroid. 2. 4.0 cm a dominant simple cyst in the right ovary with left ovary not visualized. Electronically authenticated by: EDUIN OJEDA Date: 10/30/2023 14:18
[2023-10-30 15:15] VITALS: BP 111/84; PULSE 85; O2SAT 100
== END 2023-10-30 15:19 | disposition home or self-care (01) ==
PROVIDERS: Emergency Provider Emergency Medicine; PCP Nurse Practitioner Family
DX: N93.8 Other specified abnormal uterine and vaginal bleeding (principal); E28.2 Polycystic ovarian syndrome; M19.90 Unspecified osteoarthritis, unspecified site; F32.A Depression, unspecified; F41.9 Anxiety disorder, unspecified; J45.909 Unspecified asthma, uncomplicated; K21.9 Gastro-esophageal reflux disease without esophagitis; G47.30 Sleep apnea, unspecified; I10 Essential (primary) hypertension; R73.03 Prediabetes; Z86.16 Personal history of COVID-19; Z98.890 Other specified postprocedural states; Z79.899 Other long term (current) drug therapy; Z79.84 Long term (current) use of oral hypoglycemic drugs; Z90.49 Acquired absence of other specified parts of digestive tract
CPT/HCPCS: 36415; 76830; 80048; 84703; 85025; 99284

== ENCOUNTER 2023-11-03 14:44 | Outpatient (OUT) | payer OTHER, SELFPAY ==
[2023-11-03 15:17] LABS: Basophils Percent Auto 0.5 % (0.2-2.0); Eosinophils Absolute Auto 0.1 10^3/uL (0.0-0.7); Eosinophils Percent Auto 1.4 % (0.9-7.0); Hematocrit 26.1 % (36.0-48.0); Hemoglobin 7.8 g/dL (12.0-16.0); Immature Granulocytes Abs Auto 0.03 10^3/uL (0.00-0.03); Immature Granulocytes Pct Auto 0.4 % (0.0-0.5); Lymphocytes Absolute Auto 2.5 10^3/uL (1.2-3.8); Lymphocytes Percent Auto 33.6 % (20.5-60.0); Mean Corpuscular HGB Conc 29.9 g/dL (29.9-35.2); Mean Corpuscular Hemoglobin 24.8 pg (26.7-34.0); Mean Corpuscular Volume 82.9 fL (81.0-99.0); Mean Platelet Volume 9.6 fL (9.5-13.5); Monocytes Absolute Auto 0.4 10^3/uL (0.3-0.8); Monocytes Percent Auto 5.6 % (1.7-12.0); Neutrophils Absolute Auto 4.3 10^3/uL (1.4-6.5); Neutrophils Percent Auto 58.5 % (43.0-75.0); Platelet Count 323 10^3/uL (150-450); Red Blood Count 3.15 10^6/uL (4.20-5.40); Red Cell Distribution Width 16.3 % (11.0-15.0); White Blood Count 7.4 10^3/uL (4.0-11.0)
[2023-11-03 15:56] LABS: Alanine Aminotransferase 29 U/L (14-59); Albumin Globulin Ratio 0.8; Albumin Level 3.1 g/dL (3.4-5.0); Alkaline Phosphatase 63 U/L (46-116); Anion Gap 13.2; Aspartate Amino Transferase 18 U/L (15-37); BUN Creatinine Ratio 15.7; Bilirubin Total 0.2 mg/dL (0.2-1.0); Calcium 8.7 mg/dL (8.5-10.1); Carbon Dioxide 27.6 mmol/L (21.0-32.0); Chloride 102 mmol/L (98-107); Estimated GFR (African America >60 (>=60); Estimated GFR (Non-African Ame >60 (>=60); Glucose 103 mg/dL (74-106); Percent Iron Saturation 2.7 %; Potassium 3.8 mmol/L (3.5-5.1); Sodium 139 mmol/L (136-145); Total Protein 7.1 g/dL (6.4-8.2)
== END 2023-11-03 14:45 | disposition home or self-care (01) ==
LOC: LAB 14:45
PROVIDERS: PCP Nurse Practitioner Family; Visit Provider Nurse Practitioner Family
DX: Z01.419 Encounter for gynecological examination (general) (routine) without abnormal findings (principal); N92.0 Excessive and frequent menstruation with regular cycle; R00.2 Palpitations; R42 Dizziness and giddiness
CPT/HCPCS: 36415; 80053; 82728; 83540; 83550; 85025; 87624; G0145

== ENCOUNTER 2023-11-03 20:42 | Outpatient (REF) | payer OTHER, SELFPAY ==
--- OUTSIDE RECORDS SUMMARY | 2023-11-03 20:47 | XMS_ITS | CCD ---
Author Name Unknown Address [address] [place] [address] [facility] Team Providers Care Specialty Cook Name Role Phone BRENT KINNEY Referring Unavailable BRENT KINNEY Attending Unavailable BRENT KINNEY Admitting Unavailable Oma Michelle Unavailable VIOLA, DR NUR Consulting Unavailable COHASSET, DR NUR Admitting Unavailable COHASSET, DR NUR Primary Care Unavailable COHASSET, DR NUR Attending Unavailable ZIEBER, DR SUGEY Ibrahim Consulting Unavailable FREDA ., DR COLLADO Admitting Unavailable COHASSET, DR NUR Primary Care Unavailable FREDA ., DR COLLADO Attending Unavailable FREDA ., DR COLLADO Consulting Unavailable COHASSET, DR NUR Consulting Unavailable COHASSET, DR NUR Primary Care Unavailable HOUSE, DR NUR Admitting Unavailable HOUSE, DR NUR Attending Unavailable FREDA ., DR COLLADO Admitting Unavailable COHASSET, DR NUR Primary Care Unavailable FREDA ., [...] Unavailable Celio Mullins Unavailable Manisha Marc Unavailable [phone] ROSITA Marc Primary Care Provider Rohrbacher, MARKER HAND Manisha Attending Provider DO Ivon Mullinsten Veronica Attending Provider MELA ANDERSON Attending Unavailable Rohrbacher, MARKER HAND Manisha Primary Care Provider MD Clinton Frazier Attending Provider DenyrbROSITA servin Attending Provider Rohrbacher, MARKER HAND Manisha Primary Care Provider DO Celio Mullins Attending Provider MD Edward Gilmore Attending Provider MD Clinton Frazier Attending Provider Denyrbmarycarmenr, MARKER HAND Manisha Primary Care Provider MD Edward Gilmore Attending Provider [phone] DO Akil Cox Attending Provider Edward Gilmore [...] Amoxicillin; Translations: [AMOXICILLIN] Drug Allergy 07-08-20 16 [facility] Repository (6 sources) Cefaclor; Translations: [CEFACLOR] Drug Allergy 04-14-20 15 Unknown Reaction, [facility] Repository (19 sources) Erythromycin; Translations: [ERYTHROMYCIN] Drug Allergy 04-14-20 15 [facility] Repository (19 sources) Cefaclor; Translations: [Ceclor] Drug Allergy 04-17-20 15 [facility] Repository (5 sources) Erythromycin Drug Allergy 04-17-20 15 Unknown Reaction, [facility] Repository (5 sources) Cephalosporins (Antibiotic); Translations: [Cephalosporins] Allergy to substance 12-10-19 22 Unknown Reaction, [facility] (3 sources) Lactulose; Translations: [lactulose] Drug Allergy 02-12-20 20 Unknown Reaction [facility] (1 source) Erythromycin Drug Allergy 10-01-19 24 [facility] Repository Medications Current Medications Medication Drug Class(es) Dates Sig (Normalized) Sig (Original) [id number] 200 actuat albuterol 0.09 mg/actuat metered dose [...] Provider: Tari Garnett take 1 capsule by [facility] daily as needed Gabapentin 300 [...] head/brain wo/w conon MR head/brain wo/w con [facility] Main [place] [id number] MRI Report Signed Patient: Ashly Mehta MR#: [id number] 8 : 1990 Acct:[id number] Age/Sex: 33 / F ADM Date: 10/08/23 Loc: MR Room: Type: [facility] Attending Dr: Akil Cox DO Copies [...] Ivan Holliday M.D.10/08/2023 4:38 PM Dictation Location: [place] [address] Transcribed By: [facility] 10/08/23 1594 Dictated By: Ivan Holliday II, MD 10/08/23 1630 Signed By: 10/08/23 9488 [facility] HCG ( test) Bello mejia Ql (U)on 10-06-2023 HCG ( test) Ql (U) Negative NEGATIVE [facility] COVID + FLU Quick Testingon 07-07-2023 SARS-CoV-2 (COVID-19) RNA SURI+probe Ql (Unsp spec) Negative [employer] Other COVID + FLU Quick Testing Negative [employer] Other Alanine aminotransferase [En zymatic activity/volume] in Serum or PlasmaOrdered By: Celio Mullins on 07-03-2023 ALT [Catalytic activity/Vol] 22 U/L 7-52 [facility] Albumin [Mass/volume] in Ser um or Plasma by Bromocresol green (BCG) dye binding methoOrdered By: Celio Mullins on 07-03-2023 Albumin BCG dye [Mass/Vol] 4.4 g/dL 3.5-5.7 [facility] Alkaline phosphatase [Enzyma tic activity/volume] in Serum or PlasmaOrdered By: Celio Mullins on 07-03-2023 ALP [Catalytic activity/Vol] 68 U/L 34-104 [facility] Aspartate aminotransferase [ Enzymatic activity/volume] in Serum or PlasmaOrdered By: Celio Mullins on 07-03-2023 AST [Catalytic activity/Vol] 18 U/L 13-39 [facility] Bilirubin.total [Mass/volume ] in Serum or PlasmaOrdered By: Celio Mullins on 07-03-2023 Bilirubin [Mass/Vol] 0.4 mg/dL 0.3-1.0 [facility] Calcium [Mass/volume] in Ser um or PlasmaOrdered By: Celio Mullins on 07-03-2023 Calcium [Mass/Vol] 9.4 mg/dL 8.6-10.3 [facility] Carbon dioxide, total [Moles /volume] in Serum or PlasmaOrdered By: Celio Mullins on 07-03-2023 CO2 [Moles/Vol] 30.1 mmol/L 21.0-31.0 [facility] Chloride [Moles/volume] in S marta or PlasmaOrdered By: Celio Mullins on 07-03-2023 Chloride [Moles/Vol] 105 mmol/L 98-107 [facility] Cholesterol [Mass/volume] in Serum or PlasmaOrdered By: Celio Mullins on 07-03-2023 Cholesterol [Mass/Vol] 126 mg/dL 140-200 [facility] Comment on above: Chol less than 200 m g/dl low riskChol 201-239 mg/dl borderline riskChol 240 mg/dl and greater high risk Cholesterol in LDL Calc [Mas s/Vol]Ordered By: Celio Mullins on 07-03-2023 Cholesterol in LDL [Mass/Vol] 69 mg/dL 0-100 [facility] Comment on above: LDL ATP III CLASSIFI CATIONLDL less than 100 mg/dL OptimalLDL 100-129 mg/dL Near or above optimalLDL 130-159 mg/dL Borderline highLDL 160-189 mg/dL HighLDL greater than 189 mg/dL Very high Cholesterol in VLDL Calc [Ma ss/Vol]Ordered By: Celio Mullins on 07-03-2023 Cholesterol in VLDL [Mass/Vol] 18 mg/dL [facility] Comprehensive Metabolic Pane landon 07-03-2023 Albumin [Mass/Vol] 4.4 g/dL Normal 3.5-5.7 [facility] Comment on above: Performed By: #### L IPID, CMP #### [facility] [address] [place] [address] [place] Albumin/Globulin [Mass ratio] 1.4 {ratio} Normal [facility] Comment on above: Performed By: #### L IPID, CMP #### [facility] [address] [place] [address] [place] ALP [Catalytic activity/Vol] 68 U/L Normal 34-104 [facility] Comment on above: Performed By: #### L IPID, CMP #### [facility] [address] [place] [id number] [place] ALT [Catalytic activity/Vol] 22 U/L Normal 7-52 [facility] Comment on above: Performed By: #### L IPID, CMP #### [facility] [address] [place] [id number] [place] Anion gap [Moles/Vol] 10.2 mmol/L Normal 6.0-15.0 [facility] Comment on above: Performed By: #### L IPID, CMP #### [facility] [address] [place] [id number] [facility] AST [Catalytic activity/Vol] 18 U/L Normal 13-39 [facility] Comment on above: Performed By: #### L IPID, CMP #### [facility] [address] [place] [id number] [facility] Bilirubin [Mass/Vol] 0.4 mg/dL Normal 0.3-1.0 [facility] Comment on above: Performed By: #### L IPID, CMP #### [facility] [address] Calcium [Mass/Vol] 9.4 mg/dL Normal 8.6-10.3 [facility] Comment on above: Performed By: #### L IPID, CMP #### [facility] [address] Chloride [Moles/Vol] 105 mmol/L Normal 98-107 [facility] Comment on above: Performed By: #### L IPID, CMP #### [facility] [address] [place] [address] [place] CO2 [Moles/Vol] 30.1 mmol/L Normal 21.0-31.0 [facility] Comment on above: Performed By: #### L IPID, CMP #### [facility] [address] [place] [address] [place] Creatinine [Mass/Vol] 0.63 mg/dL Normal 0.60-1.20 [facility] Comment on above: Performed By: #### L IPID, CMP #### [facility] [address] [place] [address] [place] GFR/1.73 sq M.predicted MDRD (S/P/Bld) [Vol rate/Area] mL/min/{1.73_m2} Normal [facility] Comment on above: Performed By: #### L IPID, CMP #### [facility] [address] [place] [address] [place] Globulin (S) [Mass/Vol] 3.1 g/dL Normal [facility] Comment on above: Performed By: #### L IPID, CMP #### [facility] [address] Glucose [Mass/Vol] 97 mg/dL Normal 70-100 [facility] Comment on above: Result Comment: [facility] Glucose Reference Range is dependent on time and content of last meal. Glucose of more than 200 mg/dL in a nonstressed, ambulatory subject supports the diagnosis of Diabetes Mellitus. ADA recommended reference range Performed By: #### L IPID, CMP #### [facility] [address] Potassium [Moles/Vol] 4.3 mmol/L Normal 3.5-5.1 [facility] Comment on above: Performed By: #### L IPID, CMP #### [facility] [address] [place] [address] Protein [Mass/Vol] 7.5 g/dL Normal 6.4-8.9 [facility] Comment on above: Performed By: #### L IPID, CMP #### [facility] [address] [place] [address] Sodium [Moles/Vol] 141 mmol/L Normal 136-145 [facility] Comment on above: Performed By: #### L IPID, CMP #### [facility] [address] [place] [address] Urea nitrogen [Mass/Vol] 13 mg/dL Normal 7-25 [facility] Comment on above: Performed By: #### L IPID, CMP #### [facility] [address] [place] [address] [place] Creatinine [Mass/volume] in Serum or PlasmaOrdered By: Celio Mullins on 07-03-2023 Creatinine [Mass/Vol] 0.63 mg/dL 0.60-1.20 [facility] Globulin Calc (S) [Mass/Vol] Ordered By: Celio Mullins on 07-03-2023 Globulin (S) [Mass/Vol] 3.1 g/dL [facility] Glucose [Mass/volume] in Ser um or PlasmaOrdered By: Celio Mullins on 07-03-2023 Glucose [Mass/Vol] 97 mg/dL 70-100 [facility] Comment on above: ADA recommended refe rence rangeRandom Glucose Reference Range is dependent on time and content of last meal. Glucose of more than 200 mg/dL in a nonstressed, ambulatory subject supports the diagnosis of Diabetes Mellitus. Lipid Panelon 07-03-2023 Cholesterol [Mass/Vol] 126 mg/dL Low 140-200 [facility] Comment on above: Result Comment: Chol less than 200 mg/dl low risk Chol 201-239 mg/dl borderline risk Chol 240 mg/dl and greater high risk Performed By: #### L IPID, CMP #### [facility] [address] Cholesterol in HDL [Mass/Vol] 39 mg/dL Normal 23-92 [facility] Comment on above: Result Comment: HDL CHOL ATP-III CLASSIFICATION Cardiovascular Risk HDL > or equal to 60 mg/dL LOW HDL < 40 mg/dL HIGH Performed By: #### L IPID, CMP #### [facility] [address] Cholesterol.total/Mali sterol in HDL [Mass ratio] 3.2 {ratio} Normal <5.0 [facility] Comment on above: Result Comment: PERF ORMED BY: [place] [address] PATHOLOGIST PATIENT SAFETY ATTENDANT NESHA MAIER M.D. Performed By: #### L IPID, CMP #### [facility] [address] LDL Cholesterol,Calculated 69 mg/dL Normal 0-100 [facility] Comment on above: Result Comment: LDL ATP III CLASSIFICATION LDL less than 100 mg/dL Optimal LDL 100-129 mg/dL Near or above optimal LDL 130-159 mg/dL Borderline high LDL 160-189 mg/dL High LDL greater than 189 mg/dL Very high Performed By: #### L IPID, CMP #### [facility] [address] [place] [id number] [place] Triglyceride w/Reflex 92 mg/dL Normal 0-149 [facility] Comment on above: Result Comment: TRIG ATP III CLASSIFICATION TRIG less than 150 mg/dL Normal TRIG 150-199 mg/dL Borderline high TRIG 200-500 mg/dL High TRIG greater than 500 mg/dL Very high Standard traceable to the Center for Disease Conrtrol and Prevention (CDC) test method. Performed By: #### L IPID, CMP #### [facility] [address] VLDL CHOLESTEROL 18 mg/dL Normal [facility] Comment on above: Performed By: #### L IPID, CMP #### [facility] [address] No Panel InformationOrdered By: Celio Mullins on 07-03-2023 Estimated GFR (CKD-EPI) > 60.0 mL/Min [facility] Creatinine Clearance (Chem N/A [facility] Potassium [Moles/volume] in Serum or PlasmaOrdered By: Celio Mullins on 07-03-2023 Potassium [Moles/Vol] 4.3 mmol/L 3.5-5.1 [facility] Protein [Mass/volume] in Ser um or PlasmaOrdered By: Celio Mullins on 07-03-2023 Protein [Mass/Vol] 7.5 g/dL 6.4-8.9 [facility] Serum or plasma albumin/glob ulin mass ratioOrdered By: Celio Mullins on 07-03-2023 Albumin/Globulin [Mass ratio] 1.4 {ratio} [facility] Serum or plasma anion gap de terminationOrdered By: Celio Mullins on 07-03-2023 Anion gap [Moles/Vol] 10.2 mmol/L 6.0-15.0 [facility] Serum or plasma high density lipoprotein (HDL) cholesterol measurementOrdered By: Celio Mullins on 07-03-2023 Cholesterol in HDL [Mass/Vol] 39 mg/dL 23-92 [facility] Comment on above: HDL CHOL ATP-III CLA SSIFICATION Cardiovascular RiskHDL > or equal to 60 mg/dL LOWHDL < 40 mg/dL HIGH Serum or plasma total choles terol/high density lipoprotein (HDL) cholesterol mass ratOrdered By: Celio Mullins on 07-03-2023 Cholesterol.total/Mali sterol in HDL [Mass ratio] 3.2 {ratio} <5.0 [facility] Sodium [Moles/volume] in Ser um or PlasmaOrdered By: Celio Mullins on 07-03-2023 Sodium [Moles/Vol] 141 mmol/L 136-145 [facility] Triglyceride [Mass/volume] i n Serum or PlasmaOrdered By: Celio Mullins on 07-03-2023 Triglyceride [Mass/Vol] 92 mg/dL 0-[address] [facility] Comment on above: TRIG ATP III CLASSIF ICATIONTRIG less than 150 mg/dL NormalTRIG 150-199 mg/dL Borderline highTRIG 200-500 mg/dL High TRIG greater than 500 mg/dL Very highStandard traceable to the Center for Disease Conrtrol and Prevention (CDC) test method. Urea nitrogen [Mass/volume] in Serum or PlasmaOrdered By: Celio Mullins on 07-03-2023 Urea nitrogen [Mass/Vol] 13 mg/dL 7-25 [facility] A1C with Estimated Average G luon 07-01-2023 Glucose [Mass/Vol] 117 mg/dL Normal [facility] Comment on above: Order Comment: Reaso n for Exam Severe obesity (BMI >= 40);PCOS (polycystic ovarian syndrome Result Comment: PERF ORMED BY: [place] [address] PATHOLOGIST PATIENT SAFETY ATTENDANT NESHA MAIER M.D. Performed By: #### A POB, LIPA #### [facility] , #### CMP, A1C WTH eA #### [facility] [address] [place] [address] HbA1c (Bld) [Mass fraction] 5.7 % High 4.3-5.6 [facility] Comment on above: Order Comment: Reaso n for Exam Severe obesity (BMI >= 40);PCOS (polycystic ovarian syndrome Result Comment: Incr eased risk for diabetes: 5.7 - 6.4 diabetes: >6.4 glycemic control for adults with diabetes: <7.0 Performed By: #### A POB, LIPA #### [facility] , #### CMP, A1C WTH eA #### [facility] [address] [place] [address] [place] Alanine aminotransferase [En zymatic activity/volume] in Serum or PlasmaOrdered By: Celio Mullins on 07-01-2023 ALT [Catalytic activity/Vol] 21 U/L 7-52 [facility] Albumin [Mass/volume] in Ser um or Plasma by Bromocresol green (BCG) dye binding methoOrdered By: Celio Mullins on 07-01-2023 Albumin BCG dye [Mass/Vol] 4.6 g/dL 3.5-5.7 [facility] Alkaline phosphatase [Enzyma tic activity/volume] in Serum or PlasmaOrdered By: Celio Mullins on 07-01-2023 ALP [Catalytic activity/Vol] 72 U/L 34-104 [facility] Apolipoprotein Bon Apolipoprotein B [Mass/Vol] 83 mg/dL Normal <90 [facility] Comment on above: Order Comment: Reaso n for Exam Severe obesity (BMI >= 40);PCOS (polycystic ovarian syndrome Result Comment: Hedy rabzach < 90 Borderline High 90 - 99 High 100 - 130 Very High >130 ASCVD RISK THERAPEUTIC TARGET CATEGORY APO B (mg/dL) Very High Risk <80 (if extreme risk <70) High Risk <90 Moderate Risk <90 Performed at: [facility] [address] [id number] [employer] Sprayer: Jeanna Case MD, Phone: [phone] PERFORMED BY: [place] [address] PATHOLOGIST PATIENT SAFETY ATTENDANT NESHA MAIER M.D. Performed By: #### A POB, LIPA #### [facility] , #### CMP, A1C WTH eA #### [facility] [address] [place] [address] [place] Apolipoprotein B [Mass/volum e] in Serum or PlasmaOrdered By: Celio Mullins on 07-01-2023 Apolipoprotein B [Mass/Vol] 83 mg/dL <90 [facility] Comment on above: Desirable < 90 Charissa almanza High 90 - 99 High 100 - 130 Very High >130 ASCVD RISK THERAPEUTIC TARGET CATEGORY APO B (mg/dL) Very High Risk <80 (if extreme risk <70) High Risk <90 Moderate Risk <90Performed at: - [facility] [id number] Director: Jeanna Case MD, Phone: [phone] Aspartate aminotransferase [ Enzymatic activity/volume] in Serum or PlasmaOrdered By: Celio Mullins on 07-01-2023 AST [Catalytic activity/Vol] 19 U/L 13-39 [facility] Bilirubin.total [Mass/volume ] in Serum or PlasmaOrdered By: Celio Mullins on 07-01-2023 Bilirubin [Mass/Vol] 0.4 mg/dL 0.3-1.0 [facility] Calcium [Mass/volume] in Ser um or PlasmaOrdered By: Celio Mullins on 07-01-2023 Calcium [Mass/Vol] 9.8 mg/dL 8.6-10.3 [facility] Carbon dioxide, total [Moles /volume] in Serum or PlasmaOrdered By: Celio Mullins on 07-01-2023 CO2 [Moles/Vol] 25.3 mmol/L 21.0-31.0 [facility] Chloride [Moles/volume] in S marta or PlasmaOrdered By: Celio Mullins on 07-01-2023 Chloride [Moles/Vol] 105 mmol/L 98-107 [facility] Comprehensive Metabolic Pane landon 07-01-2023 Albumin [Mass/Vol] 4.6 g/dL Normal 3.5-5.7 [facility] Comment on above: Order Comment: Reaso n for Exam Severe obesity (BMI >= 40);PCOS (polycystic ovarian syndrome NON FASTING Performed By: #### A POB, LIPA #### [facility] , #### CMP, A1C WTH eA #### [facility] [address] [place] [address] Albumin/Globulin [Mass ratio] 1.4 {ratio} Normal [facility] Comment on above: Order Comment: Reaso n for Exam Severe obesity (BMI >= 40);PCOS (polycystic ovarian syndrome NON FASTING Performed By: #### A POB, LIPA #### [facility] , #### CMP, A1C WT eA #### [address] ALP [Catalytic activity/Vol] 72 U/L Normal 34-104 [facility] Comment on above: Order Comment: Reaso n for Exam Severe obesity (BMI >= 40);PCOS (polycystic ovarian syndrome NON FASTING Result Comment: PERF ORMED BY: [place] [address] PATHOLOGIST PATIENT SAFETY ATTENDANT NESHA MAIER M.D. Performed By: #### A POB, LIPA #### [facility] , #### CMP, A1C WT eA #### [address] ALT [Catalytic activity/Vol] 21 U/L Normal 7-52 [facility] Comment on above: Order Comment: Reaso n for Exam Severe obesity (BMI >= 40);PCOS (polycystic ovarian syndrome NON FASTING Performed By: #### A POB, LIPA #### [facility] , #### CMP, A1C WTH eA #### [facility] [address] [place] [address] Anion gap [Moles/Vol] 11.5 mmol/L Normal 6.0-15.0 [facility] Comment on above: Order Comment: Reaso n for Exam Severe obesity (BMI >= 40);PCOS (polycystic ovarian syndrome NON FASTING Performed By: #### A POB, LIPA #### [facility] , #### CMP, A1C WTH eA #### [facility] [address] [place] [address] [place] AST [Catalytic activity/Vol] 19 U/L Normal 13-39 [facility] Comment on above: Order Comment: Reaso n for Exam Severe obesity (BMI >= 40);PCOS (polycystic ovarian syndrome NON FASTING Performed By: #### A POB, LIPA #### [facility] , #### CMP, A1C WTH eA #### [facility] [address] Bilirubin [Mass/Vol] 0.4 mg/dL Normal 0.3-1.0 [facility] Comment on above: Order Comment: Reaso n for Exam Severe obesity (BMI >= 40);PCOS (polycystic ovarian syndrome NON FASTING Performed By: #### A POB, LIPA #### [facility] , #### CMP, A1C WTH eA #### [facility] [address] Calcium [Mass/Vol] 9.8 mg/dL Normal 8.6-10.3 [facility] Comment on above: Order Comment: Reaso n for Exam Severe obesity (BMI >= 40);PCOS (polycystic ovarian syndrome NON FASTING Performed By: #### A POB, LIPA #### [facility] , #### CMP, A1C WTH eA #### [facility] [address] [place] [address] [place] Chloride [Moles/Vol] 105 mmol/L Normal 98-107 [facility] Comment on above: Order Comment: Reaso n for Exam Severe obesity (BMI >= 40);PCOS (polycystic ovarian syndrome NON FASTING Performed By: #### A POB, LIPA #### [facility] , #### CMP, A1C WTH eA #### [facility] [address] [place] [id number] [place] CO2 [Moles/Vol] 25.3 mmol/L Normal 21.0-31.0 [facility] Comment on above: Order Comment: Reaso n for Exam Severe obesity (BMI >= 40);PCOS (polycystic ovarian syndrome NON FASTING Performed By: #### A POB, LIPA #### [facility] , #### CMP, A1C WTH eA #### [facility] [address] Creatinine [Mass/Vol] 0.64 mg/dL Normal 0.60-1.20 [facility] Comment on above: Order Comment: Reaso n for Exam Severe obesity (BMI >= 40);PCOS (polycystic ovarian syndrome NON FASTING Performed By: #### A POB, LIPA #### [facility] , #### CMP, A1C WTH eA #### [facility] [address] GFR/1.73 sq M.predicted MDRD (S/P/Bld) [Vol rate/Area] mL/min/{1.73_m2} [facility] Comment on above: Order Comment: Reaso n for Exam Severe obesity (BMI >= 40);PCOS (polycystic ovarian syndrome NON FASTING Performed By: #### A POB, LIPA #### [facility] , #### CMP, A1C WTH eA #### [facility] [address] [place] [address] Globulin (S) [Mass/Vol] 3.2 g/dL Normal [facility] Comment on above: Order Comment: Reaso n for Exam Severe obesity (BMI >= 40);PCOS (polycystic ovarian syndrome NON FASTING Performed By: #### A POB, LIPA #### [facility] , #### CMP, A1C WTH eA #### [facility] [address] Glucose [Mass/Vol] 95 mg/dL Normal 70-100 [facility] Comment on above: Order Comment: Reaso n for Exam Severe obesity (BMI >= 40);PCOS (polycystic ovarian syndrome NON FASTING Result Comment: [place] Glucose Reference Range is dependent on time and content of last meal. Glucose of more than 200 mg/dL in a nonstressed, ambulatory subject supports the diagnosis of Diabetes Mellitus. ADA recommended reference range Performed By: #### A POB, LIPA #### [facility] , #### CMP, A1C WTH eA #### [facility] [address] [place] [address] [place] Potassium [Moles/Vol] 3.8 mmol/L Normal 3.5-5.1 [facility] Comment on above: Order Comment: Reaso n for Exam Severe obesity (BMI >= 40);PCOS (polycystic ovarian syndrome NON FASTING Performed By: #### A POB, LIPA #### [facility] , #### CMP, A1C WTH eA #### [place] [address] [place] Protein [Mass/Vol] 7.8 g/dL Normal 6.4-8.9 [facility] Comment on above: Order Comment: Reaso n for Exam Severe obesity (BMI >= 40);PCOS (polycystic ovarian syndrome NON FASTING Performed By: #### A POB, LIPA #### [facility] , #### CMP, A1C WTH eA #### [place] [address] [place] Sodium [Moles/Vol] 138 mmol/L Normal 136-145 [facility] Comment on above: Order Comment: Reaso n for Exam Severe obesity (BMI >= 40);PCOS (polycystic ovarian syndrome NON FASTING Performed By: #### A POB, LIPA #### [facility] , #### CMP, A1C WTH eA #### [place] [address] [place] Urea nitrogen [Mass/Vol] 16 mg/dL Normal 7-25 [facility] Comment on above: Order Comment: Reaso n for Exam Severe obesity (BMI >= 40);PCOS (polycystic ovarian syndrome NON FASTING Performed By: #### A POB, LIPA #### [facility] , #### CMP, A1C WTH eA #### [facility] [address] [place] [address] [place] Creatinine [Mass/volume] in Serum or PlasmaOrdered By: Celio Mullins on 07-01-2023 Creatinine [Mass/Vol] 0.64 mg/dL 0.60-1.20 [facility] Globulin Calc (S) [Mass/Vol] Ordered By: Celio Mullins on 07-01-2023 Globulin (S) [Mass/Vol] 3.2 g/dL [facility] Glucose [Mass/volume] in Ser um or PlasmaOrdered By: Celio Mullins on 07-01-2023 Glucose [Mass/Vol] 95 mg/dL 70-100 [facility] Comment on above: ADA recommended [...] from glycated hemoglobin (Bld) [Mass/Vol] 117 mg/dL [facility] Hemoglobin A1c percentageOrd ered By: Celio Mullins on 07-01-2023 HbA1c (Bld) [Mass fraction] 5.7 % 4.3-5.6 [facility] Comment on above: Increased risk for d iabetes: 5.7 - 6.4diabetes: >6.4glycemic control for adults with diabetes: <7.0 Lipoprotein (a)on 07-01-2023 Lipoprotein a [Mass/Vol] 13.0 mg/dL Normal <75.0 [facility] Comment on above: Order Comment: Reaso n for Exam Severe obesity (BMI >= 40);PCOS (polycystic ovarian syndrome Result Comment: Note : Values greater than or equal to 75.0 nmol/L may indicate an independent risk factor for CHD, but must be evaluated with caution when applied to non- populations due to the influence of genetic factors on Lp(a) across ethnicities. Performed at: [facility] [address] [id number] [employer] Sprayer: Cassius Zhong PhD, Phone: [phone] Performed By: #### A POB, LIPA #### [facility] , #### CMP, A1C WT eA #### [facility] [address] No Panel InformationOrdered By: Celio Mullins on 07-01-2023 Estimated GFR (CKD-EPI) > 60.0 mL/Min [facility] Creatinine Clearance (Chem N/A [facility] Potassium [Moles/volume] in Serum or PlasmaOrdered By: Celio Mullins on 07-01-2023 Potassium [Moles/Vol] 3.8 mmol/L 3.5-5.1 [facility] Protein [Mass/volume] in Ser um or PlasmaOrdered By: Celio Mullins on 07-01-2023 Protein [Mass/Vol] 7.8 g/dL 6.4-8.9 [facility] Serum or plasma albumin/glob ulin mass ratioOrdered By: Celio Mullins on 07-01-2023 Albumin/Globulin [Mass ratio] 1.4 {ratio} [facility] Serum or plasma anion gap de terminationOrdered By: Celio Mullins on 07-01-2023 Anion gap [Moles/Vol] 11.5 mmol/L 6.0-15.0 [facility] Serum or plasma lipoprotein a measurement (moles/volume)Ordered By: Celio Mullins on 07-01-2023 Lipoprotein a [Moles/Vol] 13.0 nmol/L <75.0 [facility] Comment on above: Note: Values greater than or equal to 75.0 nmol/L may indicate an independent risk factor for CHD, but must be evaluated with caution when applied to non- populations due to the influence of genetic factors on Lp(a) across ethnicities.Performed at: - [facility] [id number] Director: Cassius Zhong PhD, Phone: [phone] Sodium [Moles/volume] in Ser um or PlasmaOrdered By: Celio Mullins on 07-01-2023 Sodium [Moles/Vol] 138 mmol/L 136-145 [facility] Urea nitrogen [Mass/volume] in Serum or PlasmaOrdered By: Celio Mullins on 07-01-2023 Urea nitrogen [Mass/Vol] 16 mg/dL 7-25 [facility] COVID Quick Testingon 2022 Result Negative [employer] Other SARS-CoV-2 (COVID-19) RNA NA A+probe Ql (Resp)on 02-11-2023 SARS-CoV-2 (COVID-19) RNA SURI+probe Ql (Unsp spec) Negative [employer] Other DHEA-SULFATEon 01-01-2023 DHEA-Sulfate 95.3 ug/dL Normal 84.8-378.0 [facility] Comment on above: Performed By: #### D RIMA #### [facility] [address] [place] [address] Dr. Kaushik Palomares FSHon 01-01-2023 FSH 4.6 mIU/mL Normal [facility] Comment on above: Result Comment: Adul t Female: Follicular phase 3.5 - 12.5 Ovulation phase 4.7 - 21.5 Luteal phase 1.7 - 7.7 Postmenopausal 25.8 - 134.8 Performed By: #### C BC #### [facility] [address] [place] [address] Dr. Kaushik Palomares LUTEINIZING HORMONE (LH)on 01-01-2023 LH 3.5 mIU/mL Normal [facility] Comment on above: Result Comment: Adul t Female: Follicular phase 2.4 - 12.6 Ovulation phase 14.0 - 95.6 Luteal phase 1.0 - 11.4 Postmenopausal 7.7 - 58.5 Performed By: #### L [facility] #### [facility] [address] [place] [address] Dr. Kaushik Palomares CBC AUTO DIFFon 12-31-2022 BASO # 0.1 103/ul Normal 0.0-0.1 [facility] Comment on above: Performed By: #### C BC #### [facility] [address] [place] [address] Dr. Kaushik Palomares Basophils/100 WBC (Bld) 0.8 % Normal 0.2-2.0 [facility] Comment on above: Performed By: #### C BC #### [facility] [address] [place] [address] Dr. Kaushik Palomares EO # 0.1 103/ul Normal 0.0-0.7 [facility] Comment on above: Performed By: #### C BC #### [facility] [address] [place] [address] Dr. Kaushik Palomares Eosinophils/100 WBC (Bld) 1.7 % Normal 0.9-7.0 [facility] Comment on above: Performed By: #### C BC #### [facility] [address] [place] [address] Dr. Kaushik Palomares Erythrocyte distribution width (RBC) [Ratio] 12.8 % Normal 11.0-15.0 [facility] Comment on above: Performed By: #### C BC #### [facility] [address] [place] [address] Dr. Kaushik Palomares Hematocrit (Bld) [Volume fraction] 33.0 % Critically low 36.0-48.0 [facility] Comment on above: Performed By: #### C BC #### [facility] [address] [place] [address] Dr. Kaushik Palomares Hemoglobin (Bld) [Mass/Vol] 11.0 g/dL Critically low 12.0-16.0 [facility] Comment on above: Performed By: #### C BC #### [facility] [address] [place] [address] Dr. Kaushik Palomares IG # 0.03 10e3/ul Normal 0.00-0.03 [facility] Comment on above: Performed By: #### C BC #### [facility] [address] [place] [address] Dr. Kaushik Palomares IG % 0.5 % Normal 0.0-0.5 [facility] Comment on above: Performed By: #### C BC #### [facility] [address] [place] [address] Dr. Kaushik Palomares LYMPH # 2.4 103/ul Normal 1.2-3.8 [facility] Comment on above: Performed By: #### C BC #### [facility] [address] [place] [address] Dr. Kaushik Palomares Lymphocytes/100 WBC (Bld) 36.6 % Normal 20.5-60.0 [facility] Comment on above: Performed By: #### C BC #### [facility] [address] [place] [address] Dr. Kaushik Palomares MANUAL DIFF REQ NO Normal [facility] Comment on above: Performed By: #### C BC #### [facility] [address] [place] [address] Dr. Kaushik Palomares MCH (RBC) [Entitic mass] 29.0 pg Normal 26.7-34.0 [facility] Comment on above: Performed By: #### C BC #### [facility] [address] [place] [address] Dr. Kaushik Palomares MCHC (RBC) [Mass/Vol] 33.3 g/dL Normal 29.9-35.2 [facility] Comment on above: Performed By: #### C BC #### [facility] [address] [place] [address] Dr. Kaushik Palomares MCV (RBC) [Entitic vol] 87.1 fL Normal 81.0-99.0 [facility] Comment on above: Performed By: #### C BC #### [facility] [address] [place] [address] Dr. Kaushik Palomares MONO # 0.2 103/ul Critically low 0.3-0.8 [facility] Comment on above: Performed By: #### C BC #### [facility] [address] [place] [address] Dr. Kaushik Palomares Monocytes/100 WBC (Bld) 3.6 % Normal 1.7-12.0 [facility] Comment on above: Performed By: #### C BC #### [facility] [address] [place] [address] Dr. Kaushik Palomares NEUT # 3.7 103/ul Normal 1.4-6.5 [facility] Comment on above: Performed By: #### C BC #### [facility] [address] [place] [address] Dr. Kaushik Palomares Neutrophils/100 WBC (Bld) 56.8 % Normal 43.0-75.0 [facility] Comment on above: Performed By: #### C BC #### [facility] [address] [address] [address] Kaushik Palomares Platelet mean volume (Bld) [Entitic vol] 9.8 fL Normal 9.5-13.5 [facility] Comment on above: Performed By: #### C BC #### [facility] [address] [address] [address] Kaushik Palomares PLT 234 103/ul Normal 150-450 [facility] Comment on above: Performed By: #### C BC #### [facility] [address] [place] [address] Dr. Kaushik Palomares RBC 3.79 106/ul Critically low 4.20-5.40 [facility] Comment on above: Performed By: #### C BC #### [facility] [address] [address] [address] Kaushik Palomares WBC 6.5 103/ul Normal 4.0-11.0 [facility] Comment on above: Performed By: #### C BC #### [facility] [address] [place] [address] Dr. Kaushik Palomares FREE T4on 12-31-2022 Free T4 [Mass/Vol] 0.79 ng/dL Normal 0.76-1.46 [facility] Comment on above: Performed By: #### F T4 #### [facility] [address] [place] [address] Dr. Kaushik Palomares GLYCOHEMOGLOBIN A1Con 2022 ADA RECOMMENDATION SEE BELOW Normal [facility] Comment on above: Result Comment: ADA RECOMMENDED LIMIT 4.0 - 6.0 ADA THERAPEUTIC TARGET < 7.0 ACTION SUGGESTED > 7.0 Performed By: #### A 1C #### [facility] [address] [place] [address] Dr. Kaushik Palomares Glucose [Mass/Vol] 111 mg/dL Normal [facility] Comment on above: Performed By: #### A 1C #### [facility] [address] [place], [place] [address] Dr. Kaushik Palomares HbA1c (Bld) [Mass fraction] 5.5 % Normal 4.5-6.2 [facility] Comment on above: Performed By: #### A 1C #### [facility] [address] [place], [place] [address] Dr. Kaushik Palomares TSHon 12-31-2022 TSH 1.114 uIU/mL Normal 0.358-3.740 [facility] Comment on above: Performed By: #### C BC #### [facility] [address] [place], [place] [address] Dr. Kaushik Palomares US PELVIS AND TRANSVAGon [...] SUGEY MACDONALD Date: 2022-11-26 15:58 Normal [facility] XR SACRUM_COCCYXon 3 XR SACRUM_COCCYX EXAMINATION: [...] by: SUGEY MACDONALD Date: 2022-11-08 10:01 Normal [facility] PAP ACOG PANEL 2: 30 to 65on 11-05-2022 . . Normal [facility] Comment on above: Result Comment: Perf ormed at: WB Performed By: #### C BC #### [facility] [address] [address] [address] Kaushik Palomares Age Gdln ACOG Testing 30-65 Normal [facility] Comment on above: Performed By: #### C BC #### [facility] [address] [address] [address] Kaushik Palomares DIAGNOSIS: Comment Normal [facility] Comment on above: Result Comment: NEGA TIVE FOR INTRAEPITHELIAL LESION OR MALIGNANCY. Performed at: WB Performed By: #### C BC #### [facility] [address] [address] [address] Kaushik Palomares HPV Aptima Negative Normal Negative [facility] Comment on above: Result Comment: This nucleic acid amplification test detects fourteen high-risk HPV types (16,18,31,33,35,39,45,51,52,56,58,59,66,68) without differentiation. Performed at: =G Performed By: #### C BC #### [facility] [address] [address] [address] Kaushik Palomares HPV Genotype Reflex Comment Normal [facility] Comment on above: Result Comment: Crit eria not met, HPV Genotype not performed. Performed at: WB Performed By: #### C BC #### [facility] [address] [address] [address] Kaushik Palomares Methodology: Comment Normal [facility] Comment on above: Result Comment: This liquid based ThinPrep(R) pap test was screened with the use of an image guided system. Performed at: WB Performed By: #### C BC #### [facility] [address] [place] [address] Dr. Kaushik Palomares Note: Comment [facility] Comment on above: Result Comment: The [...] WB Performed By: #### C BC #### [facility] [address] [address] [address] Kaushik Palomares Performed by: Comment Normal [facility] Comment on above: Result Comment: Robi Graham, Dance Therapist (ASCP) Performed at: WB Performed By: #### C BC #### [facility] [address] [place] [address] Dr. Kaushik Palomares Specimen adequacy: Comment Normal [facility] Comment on above: Result Comment: Sati sfactory for evaluation. Endocervical and/or squamous metaplastic cells (endocervical component) are present. Performed at: WB Performed By: #### C BC #### [facility] [address] [place] [address] Dr. Kaushik Palomares COVID/FLU RT-PCRon 2 SARS-CoV-2 (COVID-19) RNA SURI+probe Ql (Unsp spec) Negative [employer] Other COVID/FLU RT-PCR Negative [facility] [employer] Other HCG-BETA SUBUNIT QUANTon hCG,Beta Subunit,Qnt,Serum <1 Normal [facility] Comment on above: Result Comment: Fema le (Non-) 0 - 5 (Postmenopausal) 0 - 8 . Female () Weeks of Gestation 3 6 - 71 4 10 - 750 5 461 - 8616 6 077 - 81889 7 [phone] 8 [phone] -[phone] 9 11023 -[phone] 10 26854 -158123 12 16249 -778655 14 55506 - 21030 15 01572 - 11209 16 3927 - 66541 17 7826 - 26858 18 2911 - 62326 Rg ECLIA methodology Performed By: #### H CGSUB #### [facility] [address] [place] [address] Dr. Kaushik Palomares T4 LABCORPon 01-22-2022 T4 [Mass/Vol] 7.8 ug/dL Normal 4.5-12.0 [facility] Comment on above: Performed By: #### T 4LC #### [facility] [address] [place] [address] Dr. Kaushik Palomares CBC AUTO DIFFon 01-21-2022 BASO # 0.1 103/ul Normal 0.0-0.1 [facility] Comment on above: Performed By: #### C BC #### [facility] [address] [place] [address] Dr. Kaushik Palomares Basophils/100 WBC (Bld) 0.6 % Normal 0.2-2.0 [facility] Comment on above: Performed By: #### C BC #### [facility] [address] [place] [address] Dr. Kaushik Palomares EO # 0.1 103/ul Normal 0.0-0.7 [facility] Comment on above: Performed By: #### C BC #### [facility] [address] [place] [address] Dr. Kaushik Palomares Eosinophils/100 WBC (Bld) 1.2 % Normal 0.9-7.0 [facility] Comment on above: Performed By: #### C BC #### [facility] [address] [place] [address] Dr. Kaushki Palomares Erythrocyte distribution width (RBC) [Ratio] 13.3 % Normal 11.0-15.0 [facility] Comment on above: Performed By: #### C BC #### [facility] [address] [place] [address] Dr. Kaushik Palomares Hematocrit (Bld) [Volume fraction] 40.0 % Normal 36.0-48.0 [facility] Comment on above: Performed By: #### C BC #### [facility] [address] [place] [address] Dr. Kaushik Palomares Hemoglobin (Bld) [Mass/Vol] 12.7 g/dL Normal 12.0-16.0 [facility] Comment on above: Performed By: #### C BC #### [facility] [address] [place] [address] Dr. Kaushik Palomares IG # 0.02 10e3/ul Normal 0.00-0.03 [facility] Comment on above: Performed By: #### C BC #### [facility] [address] [place] [address] Dr. Kaushik Palomares IG % 0.2 % Normal 0.0-0.5 [facility] Comment on above: Performed By: #### C BC #### [facility] [address] [place] [address] Dr. Kaushik Palomares LYMPH # 3.0 103/ul Normal 1.2-3.8 [facility] Comment on above: Performed By: #### C BC #### [facility] [address] [place] [address] Dr. Kaushik Palomares Lymphocytes/100 WBC (Bld) 32.9 % Normal 20.5-60.0 [facility] Comment on above: Performed By: #### C BC #### [facility] [address] [place] [address] Dr. Kaushik Palomares MANUAL DIFF REQ NO Normal [facility] Comment on above: Performed By: #### C BC #### [facility] [address] [place] [address] Dr. Kaushik Palomares MCH (RBC) [Entitic mass] 28.5 pg Normal 26.7-34.0 [facility] Comment on above: Performed By: #### C BC #### [facility] [address] [place] [address] Dr. Kaushik Palomares MCHC (RBC) [Mass/Vol] 31.8 g/dL Normal 29.9-35.2 [facility] Comment on above: Performed By: #### C BC #### [facility] [address] [place] [address] Dr. Kaushik Palomares MCV (RBC) [Entitic vol] 89.7 fL Normal 81.0-99.0 [facility] Comment on above: Performed By: #### C BC #### [facility] [address] [place] [address] Dr. Kaushik Palomares MONO # 0.5 103/ul Normal 0.3-0.8 [facility] Comment on above: Performed By: #### C BC #### [facility] [address] [place] [address] Dr. Kaushik Palomares Monocytes/100 WBC (Bld) 5.1 % Normal 1.7-12.0 [facility] Comment on above: Performed By: #### C BC #### [facility] [address] [place] [address] Dr. Kaushik Palomares NEUT # 5.4 103/ul Normal 1.4-6.5 [facility] Comment on above: Performed By: #### C BC #### [facility] [address] [place] [address] Dr. Kaushik Palomares Neutrophils/100 WBC (Bld) 60.0 % Normal 43.0-75.0 [facility] Comment on above: Performed By: #### C BC #### [facility] [address] [place] [address] Dr. Kaushik Palomares Platelet mean volume (Bld) [Entitic vol] 9.3 fL Critically low 9.5-13.5 [facility] Comment on above: Performed By: #### C BC #### [facility] [address] [place] [address] Dr. Kaushik Palomares PLT 221 103/ul Normal 150-450 [facility] Comment on above: Performed By: #### C BC #### [facility] [address] [place] [address] Dr. Kaushik Palomares RBC 4.46 106/ul Normal 4.20-5.40 [facility] Comment on above: Performed By: #### C BC #### [facility] [address] [place] [address] Dr. Kaushik Palomares WBC 9.0 103/ul Normal 4.0-11.0 [facility] Comment on above: Performed By: #### C BC #### [facility] [address] [address] [address] Kaushik Palomares GLYCOHEMOGLOBIN A1Con 2021 ADA RECOMMENDATION SEE BELOW Normal [facility] Comment on above: Result Comment: ADA RECOMMENDED LIMIT 4.0 - 6.0 ADA THERAPEUTIC TARGET < 7.0 ACTION SUGGESTED > 7.0 Performed By: #### C BC #### [facility] [address] [place] [address] Dr. Kaushik Palomares Glucose [Mass/Vol] 94 mg/dL Normal [facility] Comment on above: Performed By: #### C BC #### [facility] [address] [place] [address] Dr. Kaushik Palomares HbA1c (Bld) [Mass fraction] 4.9 % Normal 4.5-6.2 [facility] Comment on above: Performed By: #### C BC #### [facility] [address] [place] [address] Dr. Kaushik Palomares LIPID PROFILEon 01-21-2022 CHOL-HDL RATIO NORM SEE BELOW Normal [facility] Comment on above: Result Comment: 3.3 - 4.4 LOW RISK 4.4 - 7.1 AVERAGE RISK 7.1 - 11.0 MODERATE RISK >11.0 HIGH RISK Performed By: #### L IPID, CMP, TSH #### [facility] [address] [place] [address] Dr. Kaushik Palomares Cholesterol [Mass/Vol] 168 mg/dL Normal <=200 [facility] Comment on above: Performed By: #### L IPID, CMP, TSH #### [facility] [address] [place] [address] Dr. Kaushik Palomares Cholesterol in HDL [Mass/Vol] 41 mg/dL Normal 40-60 [facility] Comment on above: Performed By: #### L IPID, CMP, TSH #### [facility] [address] [place] [address] Dr. Kaushik Palomares Cholesterol in LDL [Mass/Vol] 90.2 mg/dL Normal [facility] Comment on above: Performed By: #### L IPID, CMP, TSH #### [facility] [address] [address] [address] Kaushik Palomares Cholesterol.total/Mali sterol in HDL [Mass ratio] 4.1 {ratio} Normal [facility] Comment on above: Performed By: #### L IPID, CMP, TSH #### [facility] [address] [address] [address] Kaushik Palomares HDL NORMAL > or = 60 mg/dl - LO W CARDIOVASCULAR RISK <40 mg/dl - HIGH CARDIOVASCULAR RISK Normal [facility] Comment on above: Performed By: #### L IPID, CMP, TSH #### [facility] [address] [place] [address] Dr. Kaushik Palomares LDL CALC NORMAL SEE BELOW Normal [facility] Comment on above: Result Comment: <100 mg/dl OPTIMAL 100 - 129 mg/dl NEAR OR ABOVE OPTIMAL 130 - 159 mg/dl BORDERLINE HIGH 160 - 189 mg/dl HIGH >190 mg/dl VERY HIGH Performed By: #### L IPID, CMP, TSH #### [facility] [address] [place] [address] Dr. Kaushik Palomares Triglyceride [Mass/Vol] 184 mg/dL Critically high <=150 [facility] Comment on above: Performed By: #### L IPID, CMP, TSH #### [facility] [address] [address] [address] Kaushik Palomares VLDL CALC 36.8 mg/dL Normal [facility] Comment on above: Performed By: #### L IPID, CMP, TSH #### [facility] [address] [address] [address] Kaushik Palomares MICROALBUMIN, RAND URon 06-0 mALB 2.0 mg/L Normal <=30.0 [facility] Comment on above: Performed By: #### C BC #### [facility] [address] [address] [address] Kaushik Palomares PROF 14(COMP METB)on 022 Albumin [Mass/Vol] 3.7 g/dL Normal 3.4-5.0 [facility] Comment on above: Performed By: #### L IPID, CMP, TSH #### [facility] [address] [address] [address] Kaushik Palomares Albumin/Globulin [Mass ratio] 0.9 {ratio} Normal [facility] Comment on above: Performed By: #### L IPID, CMP, TSH #### [facility] [address] [address] [address] Kaushik Palomares ALP [Catalytic activity/Vol] 53 U/L Normal 46-116 [facility] Comment on above: Performed By: #### L IPID, CMP, TSH #### [facility] [address] [place] [address] Dr. Kaushik Palomares ALT [Catalytic activity/Vol] 44 U/L Normal 14-59 [facility] Comment on above: Performed By: #### L IPID, CMP, TSH #### [facility] [address] [address] [address] Kaushik Palomares Anion gap [Moles/Vol] 6.8 mmol/L Normal [facility] Comment on above: Performed By: #### L IPID, CMP, TSH #### [facility] [facility] [address] [place] [address] Dr. Kaushik Palomares AST [Catalytic activity/Vol] 22 U/L Normal 15-37 [facility] Comment on above: Performed By: #### L IPID, CMP, TSH #### [facility] [address] [address] [address] Kaushik Palomares Bilirubin [Mass/Vol] 0.3 mg/dL Normal 0.2-1.0 [facility] Comment on above: Performed By: #### L IPID, CMP, TSH #### [facility] [address] [place] [address] Dr. Kaushik Palomares Calcium [Mass/Vol] 9.2 mg/dL Normal 8.5-10.1 [facility] Comment on above: Performed By: #### L IPID, CMP, TSH #### [facility] [address] [address] [address] Kaushik Palomares Chloride [Moles/Vol] 102 mmol/L Normal 98-107 [facility] Comment on above: Performed By: #### L IPID, CMP, TSH #### [facility] [address] [place] [address] Dr. Kaushik Palomares CO2 [Moles/Vol] 31.4 mmol/L Normal 21.0-32.0 [facility] Comment on above: Performed By: #### L IPID, CMP, TSH #### [facility] [address] [address] [address] Kaushik Palomares Creatinine [Mass/Vol] 0.71 mg/dL Normal 0.55-1.02 [facility] Comment on above: Performed By: #### L IPID, CMP, TSH #### [facility] [address] [place] [address] Dr. Kaushik Palomares EGFR-AF ERITREAN >60 Normal >=60 [facility] Comment on above: Performed By: #### L IPID, CMP, TSH #### [facility] [address] [place] [address] Dr. Kaushik Palomares EGFR-NON AF ERITREAN >60 Normal >=60 [facility] Comment on above: Performed By: #### L IPID, CMP, TSH #### [facility] [address] [place] [address] Dr. Kaushik Palomares Globulin (S) [Mass/Vol] 4.2 g/dL Normal T [facility] Comment on above: Performed By: #### L IPID, CMP, TSH #### [facility] [address] [place] [address] Dr. Kaushik Palomares Glucose [Mass/Vol] 93 mg/dL Normal 74-106 [facility] Comment on above: Performed By: #### L IPID, CMP, TSH #### [facility] [address] [place] [address] Dr. Kaushik Palomares Potassium [Moles/Vol] 4.2 mmol/L Normal 3.5-5.1 [facility] Comment on above: Performed By: #### L IPID, CMP, TSH #### [facility] [address] [address] [address] Kaushik Palomares Protein [Mass/Vol] 7.9 g/dL Normal 6.4-8.2 [facility] Comment on above: Performed By: #### L IPID, CMP, TSH #### [facility] [address] [place] [address] Dr. Kaushik Palomares Sodium [Moles/Vol] 136 mmol/L Normal 136-145 [facility] Comment on above: Performed By: #### L IPID, CMP, TSH #### [facility] [address] [place] [address] Dr. Kaushik Palomares Urea nitrogen [Mass/Vol] 11.0 mg/dL Normal 7.0-18.0 [facility] Comment on above: Performed By: #### L IPID, CMP, TSH #### [facility] [address] [place] [address] Dr. Kaushik Palomares Urea nitrogen/Creatinine [Mass ratio] 15.5 mg/mg Normal [facility] Comment on above: Performed By: #### L IPID, CMP, TSH #### [facility] [address] [place] [address] Dr. Kaushik Palomares TSHon 01-21-2022 TSH 1.298 uIU/mL Normal 0.358-3.740 [facility] Comment on above: Performed By: #### C BC #### [facility] [address] [place] [address] Dr. Kaushik Palomares TSH RANGE SEE BELOW Normal [facility] Comment on above: Result Comment: <0.3 4 UIU/ml HYPERTHYROID 0.34-5.60 UIU/ml EUTHYROID >5.60 UIU/ml HYPOTHYROID Performed By: #### C BC #### [facility] [address] [place] [address] Dr. Kaushik Palomares COVID Quick Testingon 2020 Result Negative [employer] Other Quick Strepon 06-17-2021 S. pyogenes Org specific cx Ql (Throat) Negative [employer] Other Quick Strep [employer] Other Urinalysis - AUTOMATEDon Appearance (U) cloudy [employer] Other Bilirubin Ql (U) Negative [employer] Other Color (U) yellow [employer] Other Glucose Ql (U) Negative [employer] Other Hemoglobin Ql (U) large [employer] Other Ketones Ql (U) Negative [employer] Other Leukocyte esterase Test strip Ql (U) trace [employer] Other Nitrite Ql (U) Positive [employer] Other pH (U) 5.5 [pH] [employer] Other Protein Ql (U) 100 [employer] Other Specific gravity (U) [Rel density] 1.025 [employer] Other Urobilinogen (U) [Mass/Vol] 0.2 mg/dL [employer] Other Urinalysis - AUTOMATED No rt qunb Other Urine Cultureon 05-31-2021 Urine Culture >100,000 [employer] Other Urine Culture <16 [employer] Other Urine Culture >16 [employer] Other Urine Culture <4 [employer] Other Urine Culture 8 [employer] Other Urine Culture <2 [employer] Other Urine Culture <1 [employer] Other Urine Culture >2 [employer] Other Urine Culture <0.[address] [facility] [employer] Other Urine Culture >8 [employer] Other Urine Culture >4 [employer] Other Urine Culture <32 [employer] Other Urine Culture >2/[address] [facility] [employer] Other Vital Signs Date Time Vital Sign Value 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 10-08-2023 10:50-0500 Body height 162.56 cm ROSITA Marc Work Phone: [facility] 10-08-2023 10:50-0500 Body weight 139.25 kg ROSITA Marc Work Phone: [facility] 10-01-2023 09:20-0500 Body height 162.56 cm ROSITA Marc Work Phone: [facility] 10-01-2023 09:20-0500 Body mass index (BMI) [Ratio] 53.6 kg/m2 MARKER HANDJosé Miguel Marc Work Phone: [facility] 10-01-2023 09:20-0500 Body weight 141.69 kg ROSITA Marc Work Phone: [facility] 10-01-2023 09:20-0500 Diastolic blood pressure 75 mm[Hg] ROSITA Marc Work Phone: [facility] 10-01-2023 09:20-0500 Heart rate 85 /min ROSITA Marc Work Phone: [facility] 10-01-2023 09:20-0500 Respiratory rate 18 /min ROSITA Marc Work Phone: [facility] 10-01-2023 09:20-0500 SaO2% (BldA) [Mass fraction] 99 % MARKER HANDJosé Miguel Parksacher Work Phone: [facility] 10-01-2023 09:20-0500 Systolic blood pressure 123 mm[Hg] MARKER HANDJosé Miguel Barclayrbacher Work Phone: [facility] 09-03-2023 08:00-0500 Body height 162.56 cm MARKER HANDJosé Miguel Barclayrbacher Work Phone: [facility] 09-03-2023 08:00-0500 Body weight 138.79 kg MARKER HANDJosé Miguel Barclayrbacher Work Phone: [facility] 09-03-2023 08:00-0500 Diastolic blood pressure 78 mm[Hg] MARKER HANDJosé Miguel ColladoManisha Denyrbacher Work Phone: [facility] 09-03-2023 08:00-0500 Systolic blood pressure 118 mm[Hg] MARKER HANDJosé Miguel Barclayrbacher Work Phone: [facility] 08-19-2023 09:45-0500 Body height 162.56 cm Nely Cruz Other [facility] 08-13-2023 14:00-0500 Body height 162.56 cm Manisha Marc Other [facility] 08-13-2023 14:00-0500 Body mass index (BMI) [Ratio] 52.35 kg/m2 Manisha Marc Other [facility] [employer] Other 08-13-2023 14:00-0500 Body weight 138.35 kg Manisha Parksacher Other [facility] [employer] Other 08-13-2023 14:00-0500 Body weight 138.34 kg ROSITA Parksacher Work Phone: [facility] 08-13-2023 14:00-0500 Diastolic blood pressure 80 mm[Hg] Manisha Marc Other [facility] 08-13-2023 14:00-0500 SaO2% (BldA) [Mass fraction] 98 % Manisha Marc Other [employer] Other 08-13-2023 14:00-0500 Systolic blood pressure 114 mm[Hg] Manisha Marc Other [facility] 07-15-2023 07:45-0500 Body height 162.56 cm [employer] Other [facility] 07-15-2023 07:45-0500 Body mass index (BMI) [Ratio] 52.98 kg/m2 [employer] Other [employer] Other 07-15-2023 07:45-0500 Body weight 140.03 kg [employer] Other [employer] Other 07-15-2023 07:45-0500 Body weight 140.02 kg ROSITA Marc Work Phone: [facility] 07-15-2023 07:45-0500 Diastolic blood pressure 66 mm[Hg] [employer] Other [facility] 07-15-2023 07:45-0500 Respiratory rate 18 /min [employer] Other [employer] Other 07-15-2023 07:45-0500 SaO2% (BldA) [Mass fraction] 98 % [employer] Other [employer] Other 07-15-2023 07:45-0500 Systolic blood pressure 112 mm[Hg] [employer] Other [facility] 07-07-2023 11:15-0500 Body height 162.56 cm Michelle Oma Other [facility] 07-07-2023 11:15-0500 Body mass index (BMI) [Ratio] 52.69 kg/m2 Michelle Oma Other [employer] Other 07-07-2023 11:15-0500 Body temperature 98 [degF] Michelle Oma Other [employer] Other 07-07-2023 11:15-0500 Body weight 139.26 kg Michelle Oma Other [employer] Other 07-07-2023 11:15-0500 Body weight 139.25 kg ROSITA Marc Work Phone: [facility] 07-07-2023 11:15-0500 Respiratory rate 20 /min Michelle Oma Other [employer] Other 07-07-2023 11:15-0500 SaO2% (BldA) [Mass fraction] 98 % Michelle Oma Other [employer] Other 06-29-2023 10:20-0500 Body height 162.56 cm Michelle Oma Other [employer] Other 06-29-2023 10:20-0500 Body mass index (BMI) [Ratio] 53.03 kg/m2 Michelle Oma Other [employer] Other 06-29-2023 10:20-0500 Body temperature 99.7 [degF] Michelle Oma Other [employer] Other 06-29-2023 10:20-0500 Body weight 140.16 kg Michelle Oma Other [employer] Other 06-29-2023 10:20-0500 Respiratory rate 19 /min Michelle Ernandez Other [employer] Other 06-29-2023 10:20-0500 SaO2% (BldA) [Mass fraction] 98 % Michelle Ernandez Other [employer] Other 06-11-2023 15:30-0400 Body height 162.56 cm Manisha Marc Other [employer] Other 06-11-2023 15:30-0400 Body mass index (BMI) [Ratio] 53.79 kg/m2 Manisha Marc Other [employer] Other 06-11-2023 15:30-0400 Body weight 142.16 kg Manisha Marc Other [employer] Other 06-11-2023 15:30-0400 Diastolic blood pressure 62 mm[Hg] Manisha Marc Other [employer] Other 06-11-2023 15:30-0400 SaO2% (BldA) [Mass fraction] 99 % Manisha Marc Other [employer] Other 06-11-2023 15:30-0400 Systolic blood pressure 126 mm[Hg] Manisha Marc Other [employer] Other 05-06-2023 13:40-0400 Body height 162.56 cm Casandra Hassan Other [employer] Other 05-06-2023 13:40-0400 Body mass index (BMI) [Ratio] 53.65 kg/m2 Casandra Hassan Other [employer] Other 05-06-2023 13:40-0400 Body temperature 98.4 [degF] Casandra Sonya Other [employer] Other 05-06-2023 13:40-0400 Body weight 141.8 kg Csaandra Sonya Other [employer] Other 05-06-2023 13:40-0400 Diastolic blood pressure 81 mm[Hg] Casandra Sonya Other [employer] Other 05-06-2023 13:40-0400 Respiratory rate 18 /min Casandra Sonya Other [employer] Other 05-06-2023 13:40-0400 SaO2% (BldA) [Mass fraction] 95 % Casandra Sonya Other [employer] Other 05-06-2023 13:40-0400 Systolic blood pressure 134 mm[Hg] Casandra Hassan Other [employer] Other 04-30-2023 08:30-0400 Body height 162.56 cm Manisha Marc Other [employer] Other 04-30-2023 08:30-0400 Body mass index (BMI) [Ratio] 53.86 kg/m2 Manisha Marc Other [employer] Other 04-30-2023 08:30-0400 Body weight 142.34 kg Manisha Marc Other [employer] Other 04-30-2023 08:30-0400 Diastolic blood pressure 82 mm[Hg] Manisha Marc Other [employer] Other 04-30-2023 08:30-0400 SaO2% (BldA) [Mass fraction] 100 % Manisha Mrac Other [employer] Other 04-30-2023 08:30-0400 Systolic blood pressure 120 mm[Hg] Manisha Marc Other [employer] Other 04-29-2023 07:00-0400 Body height 162.56 [facility] Other [employer] Other 04-29-2023 07:00-0400 Body mass index (BMI) [Ratio] 54.41 kg/m2 Nely Quosis Other [employer] Other 04-29-2023 07:00-0400 Body weight 143.79 kg Nely Fitt Other [employer] Other 03-25-2023 13:45-0400 Body height 162.56 cm [employer] Other [employer] Other 03-25-2023 13:45-0400 Body mass index (BMI) [Ratio] 55.45 kg/m2 [employer] Other [employer] Other 03-25-2023 13:45-0400 Body weight 146.56 kg [employer] Other [employer] Other 08-08-2023 13:45-0400 Diastolic blood pressure 57 mm[Hg] Celio Mullins Other [employer] Other 03-25-2023 13:45-0400 Respiratory rate 18 /min Celio Mullins Other [employer] Other 03-25-2023 13:45-0400 SaO2% (BldA) [Mass fraction] 97 % Celio Mullins Other [employer] Other 03-25-2023 13:45-0400 Systolic blood pressure 106 mm[Hg] Celio Mullins Other [employer] Other 02-11-2023 12:15-0400 Body height 163.83 cm Casandra Hassan Other [employer] Other 02-11-2023 12:15-0400 Body mass index (BMI) [Ratio] 54.88 kg/m2 Casandra Hassan Other [employer] Other 02-11-2023 12:15-0400 Body temperature 98 [degF] Casandra Hassan Other [employer] Other 02-11-2023 12:15-0400 Body weight 147.33 kg Casandra Hassan Other [employer] Other 02-11-2023 12:15-0400 Diastolic blood pressure 85 mm[Hg] Casandra Hassan Other [employer] Other 02-11-2023 12:15-0400 Respiratory rate 18 /min Casandra Hassan Other [employer] Other 02-11-2023 12:15-0400 SaO2% (BldA) [Mass fraction] 98 % Casandra Hassan Other [employer] Other 02-11-2023 12:15-0400 Systolic blood pressure 128 mm[Hg] Casandra Hassan Other [employer] Other 07-13-2022 11:15-0500 Body height 163.83 cm Michelle Haynesmond Other [employer] Other 07-13-2022 11:15-0500 Body mass index (BMI) [Ratio] 51.54 kg/m2 Michelle Oma Other [employer] Other 07-13-2022 11:15-0500 Body temperature 96.6 [degF] Michelle Haynesmond Other [employer] Other 07-13-2022 11:15-0500 Body weight 138.35 kg Michelle Oma Other [employer] Other 07-13-2022 11:15-0500 Respiratory rate 18 /min Michelle Oma Other [employer] Other 07-13-2022 11:15-0500 SaO2% (BldA) [Mass fraction] 96 % Michelle Oma Other [employer] Other 07-06-2021 13:00-0500 Body height 163.83 cm Michelle Oma Other [employer] Other 07-06-2021 13:00-0500 Body mass index (BMI) [Ratio] 49 kg/m2 Michelle Oma Other [employer] Other 07-06-2021 13:00-0500 Body temperature 97.5 [degF] Michelle Oma Other [employer] Other 07-06-2021 13:00-0500 Body weight 131.54 kg Michelle Oma Other [employer] Other 07-06-2021 13:00-0500 SaO2% (BldA) [Mass fraction] 96 % Michelle Oma Other [employer] Other 06-17-2021 11:00-0400 Body height 163.83 cm Michelle Oma Other [employer] Other 06-17-2021 11:00-0400 Body mass index (BMI) [Ratio] 49.68 kg/m2 Michelle Oma Other [employer] Other 06-17-2021 11:00-0400 Body temperature 98.3 [degF] Michelle Oma Other [employer] Other 06-17-2021 11:00-0400 Body weight 133.36 kg Michelle Oma Other [employer] Other 06-17-2021 11:00-0400 Respiratory rate 18 /min Michelle Oma Other [employer] Other 06-17-2021 11:00-0400 SaO2% (BldA) [Mass fraction] 96 % Michelle Oma Other [employer] Other 05-31-2021 13:50-0400 Body height 163.83 cm Michelle Oma Other [employer] Other 05-31-2021 13:50-0400 Body mass index (BMI) [Ratio] 50.36 kg/m2 Michelle Ernandez Other [employer] Other 05-31-2021 13:50-0400 Body temperature 97.8 [degF] Michelle Haynesmond Other [employer] Other 05-31-2021 13:50-0400 Body weight 135.17 kg Michelle Ernandez Other [employer] Other 05-31-2021 13:50-0400 Diastolic blood pressure 90 mm[Hg] Michelle Ernandez Other [employer] Other 05-31-2021 13:50-0400 Respiratory rate 18 /min Michelle Ernandez Other [employer] Other 05-31-2021 13:50-0400 SaO2% (BldA) [Mass fraction] 98 % Michelle Ernandez Other [employer] Other 05-31-2021 13:50-0400 Systolic blood pressure 150 mm[Hg] Michelle Oma Other [employer] Other Encounters Encounter Date Encounter Type Care Provider Facility Start: 10-08-2023 End: 10-08-2023 ambulatory Akil Cox Facility:[facility] Start: 10-08-2023 End: 10-08-2023 ambulatory ROSITA Marc Work Phone: [facility] Work Phone: Start: 10-08-2023 End: 10-08-2023 Patient encounter procedure ROSITA Marc Work Phone: [facility] [place] Work Phone: Start: 10-06-2023 End: 10-07-2023 ambulatory Bud Combs MD [facility]: [facility] Start: 10-06-2023 Non-patient / Non-visit ROSITA Marc Work Phone: [facility] Work Phone: Start: 10-01-2023 ambulatory Celio Mullins Facility :[facility] Start: 10-01-2023 End: 10-01-2023 ambulatory ROSITA Marc Work Phone: [facility] Work Phone: Start: 10-01-2023 End: 10-01-2023 Patient encounter procedure ROSITA Macr Work Phone: [facility] Phys[facility] Work Phone: Start: 09-08-2023 End: 09-09-2023 ambulatory Bud Combs MD Facility:[facility] Start: 09-03-2023 End: 09-03-2023 Patient encounter procedure ROSITA Marc Work Phone: [facility]- Start: 08-19-2023 IBT FOR OBESITY GROU P 2-10 30M Nely Cruz [facility] Start: 08-19-2023 End: 08-19-2023 ambulatory Manisha Marc [facility] [employer] Other Start: 08-19-2023 Registered Recurring ROSTIA Marc Work Phone: [facility] Work Phone: Start: 08-19-2023 End: 08-19-2023 Patient encounter procedure ROSITA Marc Work Phone: [facility] Work Phone: Start: 08-14-2023 ambulatory Edward Richey acility:[facility] Start: 08-14-2023 Registered Recurring MARKER HANDJosé Miguel Marc Work Phone: [facility] [employer] Start: 08-13-2023 End: 08-13-2023 ambulatory Manisha Marc Other [employer] Other Start: 08-13-2023 Office outpatient visit 15 minutes Manisha Marc [facility] Start: 08-13-2023 End: 08-13-2023 Patient encounter procedure MARKER HANDJosé Miguel Marc Work Phone: [facility] Work Phone: Start: 07-24-2023 End: 07-24-2023 ambulatory MELA ANDERSON Not Available Start: 07-21-2023 End: 07-22-2023 ambulatory Bud Combs MD Facility:[facility] Start: 07-19-2023 End: 07-19-2023 ambulatory Clinton Frazier Facility:[facility] Start: 07-19-2023 End: 07-19-2023 ambulatory ROSITA Marc Work Phone: [facility] Work Phone: Start: 07-19-2023 End: 07-19-2023 Patient encounter procedure ROSITA Marc Work Phone: [facility] Start: 07-15-2023 End: 07-15-2023 ambulatory Celio Mullins Other [employer] Other Start: 07-15-2023 Follow-up encounter Celio Mullins [facility] Start: 07-15-2023 End: 07-15-2023 Patient encounter procedure ROSITA Marc Work Phone: [facility] Work Phone: Start: 07-07-2023 End: 07-07-2023 ambulatory Michelle Oma Other [employer] Other Start: 07-07-2023 Office outpatient visit 15 minutes Michelle Oma [facility] Start: 07-07-2023 End: 07-07-2023 Patient encounter procedure ROSITA Marc Work Phone: [facility] [place] Work Phone: Start: 07-03-2023 Registered Recurring ROSITA Marc Work Phone: [facility] Start: 07-03-2023 End: 07-03-2023 ambulatory Celio Mullins Facility:[facility] Start: 07-03-2023 End: 07-03-2023 ambulatory ROSITA Marc Work Phone: [facility] Work Phone: Start: 07-03-2023 End: 07-03-2023 Patient encounter procedure ROSITA Marc Work Phone: [facility] [place] Work Phone: Start: 07-01-2023 End: 07-01-2023 ambulatory Manisha Marc Facility:[facility] Start: 07-01-2023 End: 07-01-2023 Patient encounter procedure ROSITA Marc Work Phone: [facility] [place] Work Phone: Start: 06-29-2023 End: 06-29-2023 ambulatory Michelle Oma Other [employer] Other Start: 06-29-2023 Office outpatient visit 15 minutes Michelle Oma [facility] Start: 06-17-2023 Registered Recurring ROSITA Keaner Work Phone: [facility] Work Phone: Start: 06-11-2023 End: 06-11-2023 ambulatory Manisha Tari Other [employer] Other Start: 06-11-2023 Office outpatient visit 25 minutes Manisha Marc [facility] Start: 05-06-2023 End: 05-06-2023 ambulatory Casandra Hassan Other [employer] Other Start: 05-06-2023 Office outpatient visit 10 minutes Casandra Hassan [facility] [place] Start: 05-01-2023 End: 05-01-2023 ambulatory Manisha Marc Other [employer] Other Start: 05-01-2023 Telephone encounter Manisha Jacky her [facility] Start: 04-30-2023 End: 04-30-2023 ambulatory Manisha Tari Other [employer] Other Start: 04-30-2023 Encounter for genera l adult medical examination without abnormal findings Manisha Marc [facility] Start: 04-30-2023 Periodic preventive med est patient 18-39 yrs Manisha Marc [facility] Start: 04-29-2023 ([facility]) [facility]N Initial Provider Nely Cruz [facility] Start: 04-29-2023 End: 04-29-2023 ambulatory Nely Cruz Other [employer] Other Start: 03-25-2023 End: 03-25-2023 ambulatory Celio Mullins Other [employer] Other Start: 03-25-2023 Nutrition therapy Celio Mullins [facility] Start: 03-25-2023 Telephone encounter Celio Mullins [facility] Start: 03-14-2023 End: 03-14-2023 ambulatory Nely Cruz Other [employer] Other Start: 03-14-2023 Telephone encounter Nely Cruz [facility] Start: 02-11-2023 End: 02-11-2023 ambulatory Casandra Hassan Other [employer] Other Start: 02-11-2023 Office outpatient visit 15 minutes Casandra Hassan [facility] Start: 12-31-2022 End: 01-01-[address] TOBIAS OSCAR . Facility:[facility] Start: 11-26-2022 End: 11-27-[address] TOBIAS OSCAR . Facility:[facility] Start: 11-08-2022 End: 11-09-[address] BOOM ROD Facility:[facility] Start: 10-28-2022 End: 10-28-[address] TOBIAS OSCAR . [facility] Start: 07-13-2022 End: 07-13-2022 ambulatory Michelle Ernandez Other [employer] Other Start: 07-13-2022 Office outpatient visit 15 minutes Michelle Oma [facility] Start: 03-07-2022 End: 03-08-[address] BOOM ROD Facility:[facility] Start: 01-25-2022 Encounter for genera l adult medical examination without abnormal findings DR BOOM ROD [facility] Start: 01-21-2022 End: 01-22-[address] BOOM ROD Facility:[facility] Start: 01-21-2022 End: 01-22-2022 Encounter for general adult medical examination without abnormal findings DR BOOM ROD Facility:[facility] Start: 07-06-2021 End: 07-06-2021 ambulatory Michelle Ernandez Other [employer] Other Start: 07-06-2021 Office outpatient visit 15 minutes Michelle Oma [facility] Start: 06-17-2021 Office outpatient visit 15 minutes Michelle Ernandez [facility] Start: 05-31-2021 Office outpatient visit 25 minutes Michelle Ernandez [facility] Start: 08-27-2018 End: 08-27-2018 ambulatory BRENT KINNEY Facility:[facility] Procedures Date Procedure Procedure Detail Performing Clinician Start: 10-08-2023 MRI of head MARKER HAND Heaven Marc Work Phone: Start: 05-31-2021 Piperacillin/tazobactam [...] COVID-19 Pfizer 2 dose Manisha Marc Other [facility] 02-10-2021 Do not use COVID-19 Pfizer 2 dose Manisha Marc Other [facility] 08-03-2018 Toradol per 15 mg Michelle Dym ond Other [employer] Other Payers Date Payer Category Payer Self-pay [id number] 2022 Self-pay [id number] 2022 Private Health Insurance 1991 Unknown [id number] 2.16.840.1.837669.3.579.2. 732 1991 Unknown [id number] .16.840.1.913016.3.579.2. 593 1991 Unknown [id number] 2.16.840.1.548720.3.579.2. 593 1991 Unknown [id number] 2.16.840.1.141054.3.579.2. 593 1991 Unknown [id number] 2.16.840.1.879607.3.579.2. 593 1991 Unknown [id number] 2.16.840.1.492165.3.579.2. 593 1991 Unknown [id number] 2.16840.1.164346.3.579.2. 593 1991 Unknown [id number] 2.16.840.1.428203.3.579.2. 1259 1991 Unknown [id number] 2.840.1.639039.3.579.2. 196 1991 Unknown [id number] 2.840.1.044528.3.579.2. 196 1991 Unknown [id number] 2.0.1.185359.3.579.2. 196 1959 Medicaid [id number] 1959 Unknown [id number] Unknown [place] [id number] Unknown [id number] 2.840.1.175563.3.579.2. 531 Unknown [id number] 2.840.1.935035.3.579.2. 531 Unknown [id number] 2.840.1.936847.3.579.2. 531 Unknown [id number] 2.840.1.145086.3.579.2. 531 Unknown [id number] 2.16840.1.438337.3.579.2. 531 Unknown [id number] 2.16840.1.175160.3.579.2. 531 Unknown [id number] 2.840.1.573857.3.579.2. 531 Social History Date Type Detail Facility Unknown if ever smoked [employer] Other Sex Assigned At Sex Assigned At Bir th [employer] Other Start: 12-07-2021 Tobacco smoking status NHIS Never smoked tobacco (finding) [facility] Start: 1990 Sex Assigned At Female F [facility] Clinical Notes 05-31-2021 to 08-19-2023 Note [...] method for meal planning ; grocery shortcuts [facility] [employer] Other 12-27-2023 Evaluation note* Encounter Date Diagnosis [...] You have been given relevant education handouts. [employer] Other 11-28-2023 Evaluation note* Encounter Date Diagnosis [...] voice recognition software. 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 Jun, Dietary surveillance and counseling (ICD-10 [...] metformin 1000 mg total daily, managed by NURSE PRACTITIONER PHYSICIAN ASSISTANT Jun, Asthma (ICD-10 - J45.909) Jun, Migraine (ICD-10 - G43.909) Jun, Primary hypertension (ICD-10 - I10) Currently on pharmacotherapy Potential for overtreatment given lightheadedness Jun, Other An additional 9 minutes was spent counseling the patient on behavior modification including proper nutrition and physical activity. [employer] Other 11-20-2023 Evaluation note* Encounter Date Diagnosis [...] until you feel better. You may take udvp-qvu-tdeuwod Imodium for diarrhea as needed. Avoid dairy foods as well as greasy fried foods. Follow-up with your physician if no improvement in 2 to 3 days. May return to work on Jun, Diarrhea, unspecified type (ICD-10 - R19.7) Diarrhea: adult home care material was printed [employer] Other 11-12-2023 Evaluation note* Encounter Date Diagnosis [...] to 3-day Jun, Bronchitis (ICD-10 - J40) [employer] Other 10-25-2023 Evaluation note* Encounter Date Diagnosis [...] disorder (ICD-10 - F31.81) Referral placed to [facility] for medication mangement. [employer] Other 09-19-2023 Evaluation note* Encounter Date Diagnosis Assessment Notes Treatment Notes Treatment Clinical Notes Apr, Exposure to head lice (ICD-10 - Z20.7) Discussed with patient exam is without any signs of current lice infection. May return to work tomorrow. Patient completed next treatment yesterday. Patient verbalized understanding. [employer] Other 09-14-2023 Evaluation note* Encounter Date Diagnosis Assessment Notes Treatment Notes Treatment Clinical Notes Apr, Primary hypertension (ICD-10 - I10) [employer] Other 09-13-2023 Evaluation note* Encounter Date Diagnosis [...] (ICD-10 - R73.01) Will obtain records from [facility] for most recent labs. Patient is [...] Low back pain, unspecified (ICD-10 - M54.50) [employer] Other 09-12-2023 Evaluation note* Encounter Date Diagnosis [...] 2) Aim for < 45 g carb/meal [employer] Other 08-08-2023 Evaluation note* Encounter Date Diagnosis [...] voice recognition software. 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 Mar, Dietary surveillance and counseling (ICD-10 [...] as sweet tea, replace ice cream with Slovak yogurt, use protein shake in the a.m. [...] with the patient, and documenting clinical information. [employer] Other 06-27-2023 Evaluation note* Encounter Date Diagnosis [...] 7 days, sooner if significantly worsening symptoms. [employer] Other 11-26-2022 Evaluation note* Encounter Date Diagnosis [...] 3 days. Off work today and tomorrow [employer] Other 11-19-2021 Evaluation note* Encounter Date Diagnosis [...] Patient care instructions given in writting by [facility] document. [employer] Other 10-31-2021 Evaluation note* Encounter Date Diagnosis [...] Patient care instructions given in writting by [facility] document. [employer] Other 10-14-2021 Evaluation note* Encounter Date Diagnosis Assessment Notes Treatment Notes Treatment Clinical Notes May, Dysuria (ICD-10 - R30.0) May, Urinary tract infection, site not specified (ICD-10 - N39.0) May, Hematuria, unspecified (ICD-10 - R31.9) [employer] Other Evaluation noteNo InformationNort qunb Other Evaluation noteNo assessment information [facility] Work Phone: Evaluation note* Diagnosis Onset Date Resolution Status Dietary surveillance and counseling acute Exercise counseling acute Food insecurity acute PCOS (polycystic ovarian syndrome) acute Prediabetes acute Severe obesity (BMI >= 40) a [facility] Work Phone: history general Narrative - [...] History Hospitalized for blood l oss 2010 [employer] Other history general Narrative - Reported* Type [...] History Hospitalized for blood l oss 2010 [employer] Other history general Narrative - Reported* Type [...] History Hospitalized for blood l oss 2010 [employer] Other history general Narrative - Reported* Type [...] History Hospitalized for blood l oss 2010 [employer] Other history general Narrative - Reported* Type [...] History Hospitalized for blood l oss 2010 [employer] Other history general Narrative - Reported* Type [...] History Hospitalized for blood l oss 2010 [employer] Other Hisgboz general Narrative - Reported* Type Description Date [...] History Hospitalized for blood l oss 2010 [employer] Other Reason for referral (narrative)* Reason *FU 06/20 [facility] was recently diagnosed with bipolar and would like medication management. Diagnosis 1 Bipolar 2 disorder ( F31.81) Referral Organization [facility] sharan Referring Provider First Name Manisha Referring Provider Last Name Rohrbacher Referring Provider Specialty Nurse Pract itioner Referred [facility] Referred Address [address],[place] ,[place],[address] Referred Provider Specialty Psychiatry Referral Priority Routine General Notes MasontaniaPaola willard 01:25:30 PM >received today, not sure if [facility] does medication management, waiting for notes to be locked Paola Henderson 06/13/2023 10:34:39 AM >notes locked, referral faxed Clinical Notes p: [phone] f: [phone] [facility] Reason *FU 06/20 would li ke a referral to pain management for other options for pain control for back pain Diagnosis 1 Degenerative lumbar disc (M51.36) Referral Organization [facility]an Referring Provider First Name Manisha Referring Provider Last Name Charlyacher Referring Provider Specialty Nurse Pract itmelidar Referred Organization [facility] Referred Provider Yrn Parsons Referred Address [address], [place],[address] Referred Provider Specialty Pain Medicin e Referral Priority Routine General Notes MasonzafarPaola 01:21:23 PM >received today, waiting for notes to be locked Paola Henderson 06/13/2023 10:25:26 AM >notes locked, referral faxed Clinical Notes f: [phone] [employer] Other Summary Purpose Family History No Family [...] and content) DATE CREATED AUTHOR 08/27/2021 [employer] DATE CREATED AUTHOR AUTHOR'S ORGANIZ ATION 01/01/2023 [facility] pital DATE CREATED AUTHOR AUTHOR'S ORGANIZ ATION 07/26/2023 [facility] EPIC DATE CREATED AUTHOR AUTHOR'S ORGANIZ ATION 10/15/2023 [facility] DATE CREATED AUTHOR AUTHOR'S ORGANIZ ATION 10/17/2023 [facility] REASON FOR VISIT (unrecogniz ed section [...] Member Role Status Dates Manisha Marc APRN WOOL SCOURER-C Primary Care Provider Active Team Status: Active Member Role Status Dates Manisha Marc APRN WOOL SCOURER-Damion Primary Care Provider, Attending Provider Active Team Status: Inactive Member Role Status Dates Manisha Marc APRN WOOL SCOURER-C Primary Care Provider Active Celio Mullins DO Attending Provider Active Team Status: Inactive Member Role Status Dates Manisha Marc APRN WOOL SCOURER-C Primary Care Provider Active Clinton Frazier MD Attending Provider Active Team Status: Inactive Member Role Status Dates Manisha Marc APRN WOOL SCOURER-C Primary Care Provider Active Start: July 032022 End: July 03, 2023 Celio Mullins DO Attending Provider Active St art: July 03, 2023 End: July 03, 2023 Team Status: Active Member Role Status Dates Manisha Marc APRN WOOL SCOURER-C Primary Care Provider Active Start: July 032022 Edward Gilmore MD Attending Provider Active Start: July 03, 2023 Team Status: Inactive Member Role Status Dates Michelle Ernandez WOOL SCOURER-C Attending Provider Active S tart: July 07, 2023 End: July 07, 2023 Team Status: Inactive Member Role Status Dates Celio Mullins DO Attending Provider Active St art: July 15, 2023 End: July 15, 2023 Team Status: Inactive Member Role Status Dates Manisha Marc APRN WOOL SCOURER-C Primary Care Provider Active Start: July End: July 19, 2023 Clinton Frazier MD Attending Provider Active Start: July 19, 2023 End: July 19, 2023 Team Status: Inactive Member Role Status Dates Manisha Marc APRN WOOL SCOURER-C Attending Provider Act rafal Start: August 13, 2023 End: August 13, 2023 Team Status: Inactive Member Role Status Dates Nely Cage [facility] Attending Provider Active Start: August 19, 2023 End: August 19, 2023 Team Status: Active Member Role Status Dates Manisha Marc APRN WOOL SCOURER-C Primary Care Provider, Attending Provider Active Start: August 19, 2023 Team Status: Inactive Member Role Status Dates Manisha Marc APRN WOOL SCOURER-C Attending Provider Act rafal Start: September 03, 2023 End: September 03, 2023 Team Status: Inactive Member Role Status Dates Manisha Marc APRN WOOL SCOURER-C Primary Care Provider Active Start: October 012023 End: October 01, 2023 Celio Mullins DO Attending Provider Active St art: October 01, 2023 End: October 01, 2023 Team Status: Active Member Role Status Dates Manisha Marc APRN WOOL SCOURER-C Primary Care Provider Active Start: August 142022 Edwadr Gilmore MD Attending Provider Active Start: August 14, 2023 Team Status: Active Member Role Status Dates Manisha Marc APRN WOOL SCOURER-Damion Primary Care Provider, Attending Provider Active Start: October 06, 2023 Team Status: Inactive Member Role Status Dates Manisha Marc APRN WOOL SCOURER-Damion Primary Care Provider Active Start: October 082023 [...] BE BASED ON THE PRIMARY CLINICAL RECORDS. [facility] [employer] provides no warranty or guarantee of the accuracy or completeness of information in this document.
[2023-11-07 12:11] LABS: Age Gdln ACOG Testing Note (.); HPV Aptima Negative (Negative); IGP, Aptima HPV, rfx 16/18,45 Note (.)
== END 2023-11-03 20:43 | disposition home or self-care (01) ==
LOC: LAB 20:42
PROVIDERS: PCP Nurse Practitioner Family; Visit Provider Obstetrics & Gynecology
DX: Z01.419 Encounter for gynecological examination (general) (routine) without abnormal findings (principal)
CPT/HCPCS: 87624; G0145

== ENCOUNTER 2023-11-26 13:50 | Outpatient (OUT) | payer OTHER, SELFPAY | END 2023-11-26 13:51 | disposition home or self-care (01) | LOC: CARD 13:50 | PROVIDERS: PCP Nurse Practitioner Family; Visit Provider Nurse Practitioner Family | DX: I49.9 Cardiac arrhythmia, unspecified (principal); N92.0 Excessive and frequent menstruation with regular cycle; R00.2 Palpitations; R42 Dizziness and giddiness | CPT/HCPCS: 93242 ==

== ENCOUNTER 2024-01-07 14:28 | Outpatient (OUT) | payer OTHER, SELFPAY ==
--- NOTE | 2024-01-07 14:59 | PM.CN ---
Consult Note: HPI Data of Consult Patient: known to practice within the last 3 years Requesting Physician: Vera Blanco NP Primary Care Provider: CHRIS LOPEZ Consult Narrative Reason for consult: f/u Narrative: Ashly Mehta a pleasant 32 year old female presents for evaluation and management of low back pain. Patient has noticed this low back pain since a fall at work in 2018 where she injured her ankle and had to wear a boot, noticed the pain started after she stopped wearing the boot. Today rating pain 6/10 in low back, is intermittent. Pain increased with pushing, pulling, standing, walking, activity, decreased with sleep sitting and lying down. No numbness tingling or weakness. Aleve PRN without relief, PT last over a year ago. Has tried chiropractor care without success. Currently on cymbalta 120mg qd, gabapentin 300mg BID, tylenol 1500mg BID-TID. Patient reporting no improvement from bilateral L4/5 L5/S1 facet RFA cc:: CC: Vera Blanco NP Review of Systems ROS Status of ROS 10 or more systems reviewed and unremarkable except as noted in history and below [facility] Medical History Herpes genitalia ?A60.00 - Herpesviral infection of urogenital system, unspecified (ICD-10) Back pain ?M54.9 - Dorsalgia, unspecified (ICD-10) Arthritis ?M19.90 - Unspecified osteoarthritis, unspecified site (ICD-10) Anemia ?D64.9 - Anemia, unspecified (ICD-10) Depression ?F32.A - Depression, unspecified (ICD-10) Anxiety ?F41.9 - Anxiety disorder, unspecified (ICD-10) COVID-19 ?U07.1 - COVID-19 (ICD-10) Asthma ?J45.909 - Unspecified asthma, uncomplicated (ICD-10) Seizures ?R56.9 - Unspecified convulsions (ICD-10) GERD (gastroesophageal reflux disease) ?K21.9 - Gastro-esophageal reflux disease without esophagitis (ICD-10) Sleep apnea ?G47.30 - Sleep apnea, unspecified (ICD-10) Palpitations ?R00.2 - Palpitations (ICD-10) Prediabetes ?R73.03 - Prediabetes (ICD-10) Hypertension ?I10 - Essential (primary) hypertension (ICD-10) PCOS (polycystic ovarian syndrome) ?E28.2 - Polycystic ovarian syndrome (ICD-10) Abnormal uterine bleeding (AUB) ?N93.9 - Abnormal uterine and vaginal bleeding, unspecified (ICD-10) Menorrhagia ?N92.0 - Excessive and frequent menstruation with regular cycle (ICD-10) Surgical History History of laparoscopy ?Z98.890 - Other specified postprocedural states (ICD-10) History of colposcopy ?Z98.890 - Other specified postprocedural states (ICD-10) History of wisdom tooth extraction ?K08.409 - Partial loss of teeth, unspecified cause, unspecified class (ICD-10) History of cholecystectomy ?Z90.49 - Acquired absence of other specified parts of digestive tract (ICD-10) Family History Other Family history of heart disease Family history of stroke Social History Within the past year, how often did you have a drink containing alcohol: monthly or less Smoking status: Never smoker 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 Highest level of school completed/degree received: Associate degree: occupational, technical, vocational program Meds Home Medications and Allergies Home Medications ?Medication ?Instructions ?Recorded ?Confirmed ?Type albuterol sulfate 90 mcg/actuation 2 inh inhalation Q6H PRN shortness 01/17/23 10/30/23 History aerosol inhaler (ProAir HFA) of breath or wheezing duloxetine 30 mg capsule,delayed 120 mg PO QDAY 01/17/23 10/30/23 History release gabapentin 300 mg capsule 300 mg PO Q12H PRN pain 01/17/23 10/30/23 History lisinopril 20 mg tablet 20 mg PO DAILY 01/17/23 10/30/23 History metformin 500 mg tablet 500 mg PO BID 01/17/23 10/30/23 History valacyclovir 1 gram tablet 1,000 mg PO BID 06/25/23 10/30/23 History coenzyme Q10 100 mg capsule (Co 200 mg PO DAILY 10/30/23 10/30/23 History Q-10) inositol 500 mg tablet 500 mg PO DAILY 10/30/23 10/30/23 History lamotrigine 25 mg tablet (Lamictal) 25 mg PO Q12H 10/30/23 10/30/23 History megestrol 20 mg tablet See Rx Instructions .Route 10/30/23 Rx .COMPLEX #10 tabs Allergies Allergy/AdvReac Type Severity Reaction Status Date / Time amoxicillin Allergy Rash Verified 09/08/23 08:43 cefaclor Allergy Rash Verified 09/08/23 08:43 erythromycin base Allergy Hives Verified 09/08/23 08:43 Exam Constitutional Documenting provider has reviewed patient's vital signs: yes Common normals: no apparent distress, oriented x3, healthy appearing, alert and well nourished General appearance: cooperative Nutritional appearance: obese HENMT Common normals: normocephalic, hearing grossly normal bilaterally and moist oral mucous membranes Head and scalp: normocephalic Eye Common normals: PERRL Pupil: PERRL Neck & C-Spine Common normals: full ROM General: normal visual inspection Chest Common normals: inspection of chest normal Respiratory Common normals: normal respiratory effort, no retractions and no use of accessory muscles Back & Pelvis Lumbar spine/lower back: ROM limited, pain with ROM and straight leg raise negative bilaterally Sacroiliac joints: SI joint(s) abnormal (bilateral marissa, thigh thrust) Other: pain throughout upper lumbar spine no pain to bilateral L4-S1 facets Extremity Other: tenderness over bilateral GTB Neuro Common normals: oriented x3, CN's II-XII intact bilaterally, moves all extremities, no focal motor deficits, no sensory deficits noted and deep tendon reflexes 2+ bilaterally Sensorium/orientation: alert Motor exam: strength 5/5 throughout and no movement abnormalities noted Psych Common normals: mental status grossly normal, thought process normal, cooperative, affect normal, speech normal and activity/motor behavior normal Speech: normal speech Thought process: normal thought process Results Additional Findings Additional findings: If on a controlled substance or opioids, I have checked an [place]AR[place] report on this patient and there are no aberrancies noted in the prescribing history.??If on a controlled substance or opioid a drug screen was completed and reviewed within the last year, and if there has not been a drug screen completed we ordered one today to monitor higher risk, state monitored pain medication use. As part of providing excellent, safe, comprehensive care, the following was completed at our patient's visit: 1. A medication reconciliation and review to ensure accurate knowledge of current/active medications, including asking our patients to inform us about any anhu-mxq-yksldnw medications or herbal remedies/nutritional supplements/alternative remedies. 2. A review to specifically ensure our patients have had annual screening for screening for depression, screening for tobacco use, and screening for unhealthy alcohol use. For concerning screenings had a discussion with the patient, provided patient education, and recommended follow-up with primary care provider when appropriate. If patient noted with a risk of falling, they received education on strength, gait, and balance training to prevent future risk of falling. Assessment and Plan Assessment and Plan (1) Lumbar spondylosis: (2) Myofascial pain syndrome: (3) Obesity: Assessment and Plan: increased weight since last visit, encouraged to f/u with PCP psychiatry and bariatrics (4) Greater trochanteric bursitis: Plan on physical exam significant improvement from bilateral L4-5 L5-s1 facet RFA, pain over these levels start cyclobenzaprine 10mg TID PRN myoscial pain/low back pain stop OTC NSAIDs, start celebrex 100mg BID PRN bilateral GTB injection with Dr Combs
== END 2024-01-07 14:29 | disposition home or self-care (01) ==
LOC: PM 14:29
PROVIDERS: PCP Nurse Practitioner Family; Visit Provider Nurse Practitioner
DX: M47.816 Spondylosis without myelopathy or radiculopathy, lumbar region (principal); M79.18 Myalgia, other site; E66.9 Obesity, unspecified; M70.60 Trochanteric bursitis, unspecified hip
CPT/HCPCS: G0463

== ENCOUNTER 2024-01-19 14:17 | Outpatient (OUT) | payer OTHER, SELFPAY ==
--- OUTSIDE RECORDS SUMMARY | 2024-01-19 14:38 | XMS_ITS | CCD ---
Author Organization [facility] Care Team Providers Care Meter Record Clerk Name Role Phone BRENT KINNEY Referring Unavailable BRENT KINNEY Attending Unavailable BRENT KINNEY Admitting Unavailable Michelle Ernandez Unavailable VIOLA, DR NUR Consulting Unavailable EDEN, DR NUR Admitting Unavailable EDEN, DR NUR Primary Care Unavailable EDEN, DR NUR Attending Unavailable ZIEBER, DR SUGEY Ibrahim Consulting Unavailable FREDA ., DR COLLADO Admitting Unavailable HOUSE, DR NUR Primary Care Unavailable FREDA ., DR COLLADO Attending Unavailable FREDA ., DR COLLADO Consulting Unavailable EDEN, DR NUR Consulting Unavailable EDEN, DR NUR Primary Care Unavailable HOUSE, DR NUR Admitting Unavailable HOUSE, DR NUR Attending Unavailable FREDA ., DR COLLADO Admitting Unavailable HOUSE, DR NUR Primary Care Unavailable FREDA ., DR COLLADO Attending Unavailable FREDA ., DR OCLLADO Consulting Unavailable ZIEBER, DR SGUEY Ibrahim Consulting Unavailable FREDA ., DR COLLADO [...] Attending Provider DO Celio Mullins Attending Provider ROSITA Marc Primary Care Provider MD Clinton Frazier Attending Provider [phone] ROSITA Marc Attending Provider [phone] Tari, ROSITA Dyer Primary Care Provider DO Celio Mullins Attending Provider [phone] MD Edward Gilmore Attending Provider MD Clinton Frazier Attending Provider Tari, ROSITA Dyer Primary Care Provider MD Edward Gilmore Attending Provider DO Akil Cox Attending Provider [phone] Garret CROWLEY, Bud Denis Attending Unavailable Garret CROWLEY, Andrius Vkathleen Attending Unavailable Garret CROWLEY, Andrius Vytautcortez Attending Unavailable TOBIAS OSCAR Attending Unavailable MELA ANDERSON Attending Unavailable ROSITA Marc Primary Care Provider MD Edward Gilmore Attending Provider ROSITA Marc Attending Provider DO Akil Cox Attending Provider ROSITA Marc Primary Care Provider MD Edward Gilmore Attending Provider ROSITA Marc Primary Care Provider MD Edward Gilmore Attending Provider Manisha Marc Attending Unavailable Manisha Marc Admitting Unavailable Manisha Marc Primary Care Unavailable Edward Gilmore Admitting Unavailab le Edward Gilmore Attending Unavailab zach Marc [facility] Unavailable Celio Mullins M Admitting Unavailable Celio Mullins M Attending Unavailable Tari [facility] Unavailable Clinton Frazier Admitting Unavailable Clinton Frazier Attending Unavailable [facility], [facility], [facility] Unavailable Celio Mullins M Admitting Unavailable Celio Mullins M Attending Unavailable Celio Mullins M Admitting Unavailable Celio Mullins M Attending Unavailable [facility], [facility] Unavailable Akil Cox Attending Unavailab Akil Avila Admitting Unavailab zach Marc, [facility] Unavailable Allergies Allergy Classification Reported Allergen(s) Allergy Type Date of Onset Reaction(s) Facility (20 sources) Amoxicillin; Translations: [AMOXICILLIN] Drug Allergy 07-08-20 16 [facility] Repository (9 sources) Cefaclor; Translations: [CEFACLOR] Drug Allergy 04-14-20 15 Unknown Reaction, [facility] Repository (19 sources) Erythromycin; Translations: [ERYTHROMYCIN] Drug Allergy 04-14-20 15 [facility] Repository (19 sources) Cefaclor; Translations: [Ceclor] Drug Allergy 04-17-20 15 [facility] Repository (8 sources) Erythromycin Drug Allergy 04-17-20 15 Unknown Reaction, [facility] Repository (8 sources) Cephalosporins (Antibiotic); Translations: [Cephalosporins] Allergy to substance 12-10-19 22 Unknown Reaction, [facility] (3 sources) Lactulose; Translations: [lactulose] Drug Allergy 02-12-20 20 Unknown Reaction [facility] (1 source) Erythromycin Drug Allergy 11-26-19 24 [facility] Repository Medications Current Medications Medication Drug Class(es) Dates Sig (Normalized) Sig (Original) [id number] 200 actuat albuterol 0.09 mg/actuat metered dose [...] Sulfate Active 2 PUFF INHALATION Q6H February 12, 2020 12:00am take 1 puff(s) by in halation every [...] day for 10 day(s) Jun, Active DULoxetine 60 mg delayed release oral capsule (20 sources) Serotonin and Norepinephrine Reuptake Inhibitor Start: 11-26-19 24 take 120 mg by mouth once daily Duloxetine Active 120 MG PO Daily November 26, 2023 12:00am Start: 10-01-2023 End: 10-01-2023 take 2 capsules by mouth once daily Duloxetine (Cymbalta) 60 mg capsule,delayed release(DR/EC) Discontinued 120 MG PO Daily October 01, 2023 1:00am October 01, 2023 10:14am FreeTextSi capsule Orally Once a day; Note: Source Status: Taking; Refills: 1; Qty: 180 Capsule; Provider: Tari Garnett Start: 02-17-2020 End: 11-26-2023 take 90 mg by mouth once daily at bedtime Duloxetine Discontinued 90 MG PO Daily at bedtime February 17, 2020 12:00am November 26, 2023 8:33am take 2 capsules by m out every twenty-four hours Cymbalta 60 MG 2 capsule Orally Once a day for 90 days Active Cymbalta Active ferrous sulfate 325 mg oral tablet (2 sources) Start: 11-04-2023 take 325 mg by mouth once daily Ferrous Sulfate Active 325 MG PO Daily November 04, 2023 12:00am gabapentin 300 mg oral capsule (20 sources) Anti-epileptic Agent Start: 02-12-2020 End: 10-01-2023 take 1 capsule by mouth three times daily as needed Gabapentin Active 300 MG PO Three times daily October 01, 2023 1:00am FreeTextSi capsule Orally Once a day PRN; Note: Source Status: RefillPRN; Refills: 0; Provider: Tari Garnett take 1 capsule by mo [facility] once daily as needed Gabapentin 300 MG 1 capsule Orally Once a day PRN for 30 days PRN Active lamoTRIgine 25 mg oral tablet (5 sources) Mood Stabilizer, Anti-epileptic Agent Start: 10-01-2023 take 25 mg by mouth twice daily Lamotrigine Active 25 MG PO Twice daily October 01, 2023 1:00am lisinopril 10 mg oral tablet (20 sources) Angiotensin Converting Enzyme Inhibitor Start: 11-26-2023 take 10 mg by mouth once daily Lisinopril Active 10 MG PO Daily November 26, 2023 12:00am Start: 10-01-2023 End: 11-26-2023 take 10 mg by mouth once daily Lisinopril Discontinued 10 MG PO Daily October 01, 2023 10:14am November 26, 2023 8:34am Start: 10-01-2023 End: 11-03-2023 take 10 mg by mouth once daily Lisinopril Discontinued 10 MG PO Daily October 01, 2023 1:00am November 03, 2023 2:25pm Start: 12-07-2021 End: 10-01-2023 take 20 mg by mouth once daily Lisinopril Discontinued 20 MG PO Daily December 07, 2021 12:00am October 01, 2023 10:18am take 1 tablet by miranda every twenty-four hours Lisinopril 10 MG 1 tablet Orally Once a day for 90 days Active Lisinopril Activ e melatonin 10 mg oral tablet (20 sources) Start: 10-01-2023 End: 10-01-2023 take 1 mg by mouth once daily at bedtime Melatonin Active MG PO Daily at bedtime October 01, 2023 10:15am take 1 tablet by miranda th every twenty-four hours Melatonin 10 MG 1 tablet at bedtime as needed Orally Once Daily PRN Active take 1 tablet by miranda th once daily at bedtime as needed Melatonin 10 MG 1 tablet at bedtime as needed Orally Once Daily PRN Active Melatonin PRN Ac tive 24 hr metFORMIN hydrochloride 500 mg extended release oral tablet (20 sources) Biguanide Start: 11-26-2023 take 1000 mg by mouth once daily Metformin Active 1000 MG PO Daily November 26, 2023 12:00am Start: 02-12-2020 End: 11-26-2023 take 1 tablet by mouth twice daily Metformin Discontinued 500 MG PO Twice daily October 01, 2023 1:00am November 26, 2023 8:34am FreeTextSi tablet with a meal Orally twice daily; Note: Source Status: Taking; Provider: Tari Dyer ( ) Metformin & Diet Manage Prod (5 sources) Metformin & Diet Manage Prod Active Multivitamin preparation (19 sources) Start: 12-07-2021 take 1 tablet by mouth once daily Multivitamin Active 1 TAB PO Daily December 07, 2021 12:00am Start: 12-07-2021 take 1 tablet by miranda th once daily Multivitamin Active 1 TAB PO Daily December 06, 2021 11:00pm Multivitamin Act rafal niacin 500 mg oral tablet (2 sources) Nicotinic Acid Start: 11-26-2023 Niacin (Inositol Niacinate) Active TAB PO November 26, 2023 12:00am nitrofurantoin, macrocrystals 25 mg / nitrofurantoin, monohydrate [...] a day for 2 day(s) May, Active ubidecarenone 200 mg oral capsule (2 sources) Start: 11-26-2023 Coenzyme Q10 Active 200 MG PO Daily November 26, 2023 12:00am valACYclovir 1000 mg oral tablet (20 sources) Herpesvirus Nucleoside Analog DNA Polymerase Inhibitor, Herpes Simplex Virus Nucleoside Analog DNA Polymerase Inhibitor, Herpes Zoster Virus Nucleoside Analog DNA Polymerase Inhibitor Start: 02-12-2020 End: 01-08-2024 Valacyclovir (Valtrex) 1 gram tablet Active 1000 MG PO Daily January 08, 2024 11:48am Start: 02-12-2020 End: 02-12-2020 take 1 mg by mouth once daily Valacyclovir Discontinue d 1 MG PO Daily February 12, 2020 12:00am February 12, 2020 8:16pm valACYclovir HCl 1 GM TAKE 1 TABLET [...] Sig (Original) ARIPiprazole 5 mg oral tablet (9 sources) Atypical Antipsychotic Start: 03-05-2020 End: 12-07-2021 take 5 mg by mouth once daily Aripiprazole Discontinued 5 MG PO Daily March 05, 2020 12:00am December 07, 2021 10:45am Abilify Not-Taki ng Abilify Active 24 hr buPROPion hydrochloride 150 mg extended release oral tablet (7 sources) Aminoketone Start: 02-12-2020 End: 02-17-2020 take 150 mg by mouth once daily Bupropion Hcl Discontinued 150 MG PO Daily February 12, 2020 12:00am February 17, 2020 11:57am citalopram 40 mg oral tablet (14 sources) Serotonin Reuptake Inhibitor Start: 02-12-2020 End: 02-17-2020 take 40 mg by mouth once daily Citalopram Discontinued 40 MG PO Daily February 12, 2020 12:00am February 17, 2020 11:57am Start: 02-12-2020 End: 02-12-2020 Citalopram Discontinued MG T ABLET February 12, 2020 12:00am February 12, 2020 8:18pm fluticasone propionate 0.05 mg/actuat metered dose nasal spray (8 sources) Corticosteroid Start: 10-01-2023 End: 11-26-2023 Fluticasone Propionate Discontinued 2 SPRAY INTRANASAL Daily October 01, 2023 1:00am November 26, 2023 8:33am Start: 06-29-2023 take 2 spray(s) nasa l route once daily Fluticasone Propionate 50 MCG/ACT 2 sprays Nasally Once a day for 14 day(s) Jun, Active hydrOXYzine pamoate 25 mg oral capsule (20 sources) Antihistamine Start: 12-07-2021 End: 10-01-2023 take 25 mg by mouth three times daily Hydroxyzine Pamoate Discontinued 25 MG PO Three times daily December 07, 2021 12:00am October 01, 2023 10:14am Vistaril 25 MG 1 Capsule prn Orally 2-3 times per day Active take 1 capsule by mouth every ei ght hours Vistaril 25 MG 1 capsule as needed Orally every 8 hrs Not-Taking Ketorolac (15 sources) Nonsteroidal Anti-inflammatory Drug, Cyclooxygenase Inhibitor Start: 08-03-2018 Toradol per 15 mg Jul, 60 mg 24 hr metoprolol succinate 50 mg extended release oral tablet (7 sources) beta-Adrenergic Ann Start: 02-12-2020 End: 12-07-2021 take 50 mg by mouth once daily Metoprolol Succinate Discontinued 50 MG PO Daily February 12, 2020 12:00am December 07, 2021 10:46am predniSONE 20 mg oral tablet (5 sources) Start: 06-29-2023 take 1 tablet by mouth every twelve hours predniSONE 20 MG 1 tablet Orally bid for 5 day(s) Jun, Not-Taking Start: 06-17-2021 take 1 tablet by miranda th every twelve hours predniSONE 20 MG 1 tablet Orally bid for 5 day(s) May, Active Problems Active Problems Problem Classification Problem Date Documented Da te Episodic/Chronic Anxiety disorders (14 sources) Anxiety; Translations: [Anxiety disorder, unspecified] Chronic Asthma (20 sources) Exacerbation of intermittent asthma; Translations: [Mild intermittent asthma with (acute) exacerbation] Chronic Cardiac dysrhythmias (6 sources) Palpitations; Translations: [Palpitations] 11-03-2023 Episodic Chronic obstructive pulmonary disease and bronchiectasis (5 sources) Acute exacerbation of chronic bronchitis; Translations: [Bronchitis, chronic with acute exacerbation] Chronic Chronic obstructive pulmonary disease and bronchiectasis (1 source) Bronchitis, not specified as acute or chronic Episodic Conditions associated with dizziness or vertigo (6 sources) Lightheadedness; Translations: [Dizziness and giddiness] 11-03-2023 Episodic Epilepsy; convulsions (11 sources) Seizure disorder; [...] Onset: 06-17-2021 Resolved: 07-06-2021 Episodic Menstrual disorders (15 sources) Amenorrhea; Translations: [Amenorrhea, unspecified] Onset: 03-07-2022 Chronic Mood disorders (20 sources) Recurrent major depression in partial remission; Translations: [Major depressive disorder, recurrent, in partial remission] Chronic Nausea and vomiting (1 source) Nausea with vomiting, unspecified Episodic Nutritional deficiencies (2 sources) Iron deficiency; Translations: [Iron deficiency] 11-04-2023 Episodic Other endocrine disorders (18 sources) Polycystic ovary syndrome; Translations: [Polycystic ovarian syndrome] 10-01-2023 Chronic Other endocrine disorders (9 sources) Polycystic ovarian syndrome; Translations: [Polycystic ovaries] [...] Chronic Other nutritional; endocrine; and metabolic disorders (16 sources) Insulin resistance; Translations: [Metabolic syndrome] 10-01-2023 Chronic Other nutritional; endocrine; and metabolic disorders (9 sources) Morbid (severe) obesity due to excess [...] Spondylosis; intervertebral disc disorders; other back problems (17 sources) Sacroiliitis, not elsewhere classified; Translations: [Other intervertebral disc degeneration, lumbar region] Onset: 11-08-2022 Chronic Unclassified (1 source) Morbid (severe) obesity due to excess calories; Translations: [Morbid (severe) obesity due to excess calories] Onset: 10-01-2023 Unclassified (1 source) Food insecurity; Translations: [Food insecurity] Onset: 10-01-2023 Unclassified (1 source) Encounter for other specified aftercare; Translations: [Encounter for other specified aftercare] Onset: 07-19-2023 Viral infection (6 sources) Viral infection, unspecified; Translations: [Herpes simplex] Episodic Past or Other Problems Problem Classification Problem Date Documented Da te Episodic/Chronic Administrative/social admission (20 sources) Dietary counseling and surveillance; Translations: [Other specified counseling] Onset: 08-19-2023 Episodic Diabetes mellitus without complication (11 sources) Impaired fasting glucose; Translations: [Prediabetes] Onset: 10-01-2023 Episodic Genitourinary symptoms and ill-defined conditions (2 sources) [...] Test Name Value Interpretation Reference Range Facility Basophils Auto (Bld) [#/Vol] on 11-03-2023 Basophils (Bld) [#/Vol] 0.0 10 3/uL 0.0-0.1 [facility] Basophils/100 WBC Auto (Bld) on 11-03-2023 Basophils/100 WBC (Bld) 0.5 % 0.2-2.0 F [facility] Eosinophils/100 WBC Auto (Bl d)on 11-03-2023 Eosinophils/100 WBC (Bld) 1.4 % 0.9-7.0 [facility] Erythrocyte distribution wid th Auto (RBC) [Ratio]on 11-03-2023 Erythrocyte distribution width (RBC) [Ratio] 16.3 % 11.0-15.0 [facility] Estimated glomerular filtrat ion rate (GFR) non- Americanon 11-03-2023 GFR/1.73 sq M.predicted among non-blacks MDRD (S/P/Bld) [Vol rate/Area] mL/min/{1.73_m2} >=60 [facility] Globulin Calc (S) [Mass/Vol] on 11-03-2023 Globulin (S) [Mass/Vol] 4.0 g/dL F [facility] Hematocrit Auto (Bld) [Volum e fraction]on 11-03-2023 Hematocrit (Bld) [Volume fraction] 26.1 % 36.0-48.0 [facility] Hemoglobin [Mass/volume] in Bloodon 11-03-2023 Hemoglobin (Bld) [Mass/Vol] 7.8 g/dL 12.0-16.0 [facility] Human papilloma virus 16+18+ 31+33+35+39+45+51+52+56+58+59+66+68 DNA [Presence] in [place] 11-03-2023 HPV 16+18+31+33+35+39+45+51 +52+56+58+59+66+68 DNA Probe+sig amp Ql (Cvx) Negative Negative [facility] Comment on above: This nucleic acid am plification test detects fourteen high-risk HPV types (16,18,31,33,35,39,45,51,52,56,58,59,66,68)without differentiation.Performed at: =[address] [id number] Director: oMnse Cardona MD, Phone: [phone] at: - [facility] [address] [place] [id number] Director: Monse Cardona MD, Phone: [phone] Iron binding capacity [Mass/ volume] in Serum or Plasmaon 11-03-2023 Iron binding capacity [Mass/Vol] 512.0 ug/dL 250.0-450.0 [facility] Iron saturation [Mass Fracti on] in Serum or Plasmaon 11-03-2023 Iron saturation [Mass fraction] 2.7 % [facility] Laboratory - Chemistry and C hemistry - challengeon 11-03-2023 Albumin [Mass/Vol] 3.1 g/dL 3.4-5.0 [facility] ALP [Catalytic activity/Vol] 63 U/L 46-116 [facility] ALT [Catalytic activity/Vol] 29 U/L 14-59 [facility] AST [Catalytic activity/Vol] 18 U/L 15-37 [facility] Bilirubin [Mass/Vol] 0.2 mg/dL 0.2-1.0 [facility] Calcium [Mass/Vol] 8.7 mg/dL 8.5-10.1 [facility] Chloride [Moles/Vol] 102 mmol/L 98-107 [facility] CO2 [Moles/Vol] 27.6 mmol/L 21.0-32.0 [facility] Creatinine [Mass/Vol] 0.70 mg/dL 0.55-1.02 [facility] Ferritin [Mass/Vol] 6.0 ng/mL 8.0-252.0 [facility] GFR/1.73 sq M.predicted MDRD (S/P/Bld) [Vol rate/Area] mL/min/{1.73_m2} >=60 [facility] Glucose [Mass/Vol] 103 mg/dL 74-106 [facility] Iron [Mass/Vol] 14.0 ug/dL 50.0-170.0 [facility] Potassium [Moles/Vol] 3.8 mmol/L 3.5-5.1 [facility] Protein [Mass/Vol] 7.1 g/dL 6.4-8.2 [facility] Sodium [Moles/Vol] 139 mmol/L 136-145 [facility] Urea nitrogen [Mass/Vol] 11.0 mg/dL 7.0-18.0 [facility] Urea nitrogen/Creatinine [Mass ratio] 15.7 mg/mg [facility] Laboratory - Hematology and Cell countson 11-03-2023 Immature granulocytes/100 WBC (Bld) 0.4 % 0.0-0.5 [facility] Leukocytes [#/volume] correc carmelita for nucleated erythrocytes in Blood by Automated counon 11-03-2023 WBC corrected for nucl RBC Auto (Bld) [#/Vol] 7.4 10 3/uL 4.0-11.0 [facility] Lymphocytes Auto (Bld) [#/Vo l]on 11-03-2023 Lymphocytes (Bld) [#/Vol] 2.5 10 3/uL 1.2-3.8 [facility] Lymphocytes/100 WBC Auto (Bl d)on 11-03-2023 Lymphocytes/100 WBC (Bld) 33.6 % 20.5-60.0 [facility] MCH Auto (RBC) [Entitic mass ]on 11-03-2023 MCH (RBC) [Entitic mass] 24.8 pg 26.7-34.0 [facility] MCHC Auto (RBC) [Mass/Vol]on 11-03-2023 MCHC (RBC) [Mass/Vol] 29.9 g/dL 29.9-35.2 [facility] MCV Auto (RBC) [Entitic vol] on 11-03-2023 MCV (RBC) [Entitic vol] 82.9 fL 81.0-99.0 F [facility] Monocytes Auto (Bld) [#/Vol] on 11-03-2023 Monocytes (Bld) [#/Vol] 0.4 10 3/uL 0.3-0.8 [facility] Monocytes/100 WBC Auto (Bld) on 11-03-2023 Monocytes/100 WBC (Bld) 5.6 % 1.7-12.0 [facility] Neutrophils Auto (Bld) [#/Vo l]on 11-03-2023 Neutrophils (Bld) [#/Vol] 4.3 10 3/uL 1.4-6.5 [facility] Neutrophils/100 WBC Auto (Bl d)on 11-03-2023 Neutrophils/100 WBC (Bld) 58.5 % 43.0-75.0 [facility] No Panel Informationon 11-02 Eosinophils # (Auto) 0.1 10 3/uL 0.0-0.7 [facility] Immature Granulocyte # (Auto) 0.03 10 3/uL 0.00-0.03 [facility] HPV High Risk Other Comment Note . [facility] Comment on above: TESTS RESULT FLAG UN ITS REF RANGE LAB -DIAGNOSIS: 02 NEGATIVE FOR INTRAEPITHELIAL LESION OR MALIGNANCY.Specimen adequacy: 02 Satisfactory for evaluation. Endocervical and/or squamous metaplastic cells (endocervical component) are present.Performed by: Mikhail Escalante, Public Health Registrar (ASCP). 02Note: Note 02 The Pap smear is a screening test designed to aid in the detection of premalignant and malignant conditions of the uterine cervix. It is not a diagnostic procedure and should not be used as the sole means of detecting cervical cancer. Both false-positive and false-negative reports do occur.Test Methodology: Note 02 This liquid based ThinPrep(R) pap test was screened with the use of an image guided system.HPV Genotype Reflex Note 02 Criteria not met, HPV Genotype not performed. -------- FLAG LEGEND: L-Low Normal,H-High Normal,LL-Alert Low,HH-Alert High <-Panic Low,>-Panic High,A-Abnormal,AA-Critical Abnormal ------Performed at:02 [address] [facility] [address] [place] [address] Monse Cardona MD, Reference Lab Test Patient Age Note . [facility] Comment on above: TESTS RESULT FLAG UN ITS REF RANGE LAB - Clinician Provided Cytology Information Source.............Cervix;Endocervix No. of containers..01 ThinPrep VialAge Leeo MARLENEOG Elise... 30-65 01 FLAG LEGEND: L-Low Normal,H-High Normal,LL-Alert Low,HH-Alert High <-Panic Low,>-Panic High,A-Abnormal,AA-Critical Abnormal ------Performed at:01 =G [facility] [address] [place] [address] Monse Cardona MD, Platelet mean volume Auto (B ld) [Entitic vol]on 11-03-2023 Platelet mean volume (Bld) [Entitic vol] 9.6 fL 9.5-13.5 [facility] Platelets Auto (Bld) [#/Vol] on 11-03-2023 Platelets (Bld) [#/Vol] 323 10 3/uL 150-450 [facility] RBC Auto (Bld) [#/Vol]on RBC (Bld) [#/Vol] 3.15 10 6/uL 4.20-5.40 [facility] Serum or plasma albumin/glob ulin mass ratioon 11-03-2023 Albumin/Globulin [Mass ratio] 0.8 {ratio} [facility] Serum or plasma anion gap de terminationon 11-03-2023 Anion gap [Moles/Vol] 13.2 mmol[facility] Basophils Auto (Bld) [#/Vol] on 10-30-2023 Basophils (Bld) [#/Vol] 0.0 10 3/uL 0.0-0.1 [facility] Basophils/100 WBC Auto (Bld) on 10-30-2023 Basophils/100 WBC (Bld) 0.6 % 0.2-2.0 F [facility] Eosinophils/100 WBC Auto (Bl d)on 10-30-2023 Eosinophils/100 WBC (Bld) 1.2 % 0.9-7.0 [facility] Erythrocyte distribution wid th Auto (RBC) [Ratio]on 10-30-2023 Erythrocyte distribution width (RBC) [Ratio] 16.6 % 11.0-15.0 [facility] Estimated glomerular filtrat ion rate (GFR) non- Americanon 10-30-2023 GFR/1.73 sq M.predicted among non-blacks MDRD (S/P/Bld) [Vol rate/Area] mL/min/{1.73_m2} >=60 [facility] HCG ( test) IA.rapi d Ql (U)on 10-30-2023 HCG ( test) Ql (U) Negative NEGATIVE [facility] Hematocrit Auto (Bld) [Volum e fraction]on 10-30-2023 Hematocrit (Bld) [Volume fraction] 26.6 % 36.0-48.0 [facility] Hemoglobin [Mass/volume] in Bloodon 10-30-2023 Hemoglobin (Bld) [Mass/Vol] 7.9 g/dL 12.0-16.0 [facility] Laboratory - Chemistry and C hemistry - challengeon 10-30-2023 Calcium [Mass/Vol] 8.5 mg/dL 8.5-10.1 [facility] Chloride [Moles/Vol] 101 mmol/L 98-107 [facility] CO2 [Moles/Vol] 28.8 mmol/L 21.0-32.0 [facility] Creatinine [Mass/Vol] 0.62 mg/dL 0.55-1.02 [facility] GFR/1.73 sq M.predicted MDRD (S/P/Bld) [Vol rate/Area] mL/min/{1.73_m2} >=60 [facility] Glucose [Mass/Vol] 104 mg/dL 74-106 [facility] Potassium [Moles/Vol] 4.0 mmol/L 3.5-5.1 [facility] Sodium [Moles/Vol] 137 mmol/L 136-145 [facility] Urea nitrogen [Mass/Vol] 8.0 mg/dL 7.0-18.0 [facility] Urea nitrogen/Creatinine [Mass ratio] 12.9 mg/mg [facility] Laboratory - Hematology and Cell countson 10-30-2023 Immature granulocytes/100 WBC (Bld) 0.4 % 0.0-0.5 [facility] Leukocytes [#/volume] correc carmelita for nucleated erythrocytes in Blood by Automated counon 10-30-2023 WBC corrected for nucl RBC Auto (Bld) [#/Vol] 7.3 10 3/uL 4.0-11.0 [facility] Lymphocytes Auto (Bld) [#/Vo l]on 10-30-2023 Lymphocytes (Bld) [#/Vol] 2.2 10 3/uL 1.2-3.8 [facility] Lymphocytes/100 WBC Auto (Bl d)on 10-30-2023 Lymphocytes/100 WBC (Bld) 30.2 % 20.5-60.0 [facility] MCH Auto (RBC) [Entitic mass ]on 10-30-2023 MCH (RBC) [Entitic mass] 25.0 pg 26.7-34.0 [facility] MCHC Auto (RBC) [Mass/Vol]on 10-30-2023 MCHC (RBC) [Mass/Vol] 29.7 g/dL 29.9-35.2 [facility] MCV Auto (RBC) [Entitic vol] on 10-30-2023 MCV (RBC) [Entitic vol] 84.2 fL 81.0-99.0 F [facility] Monocytes Auto (Bld) [#/Vol] on 10-30-2023 Monocytes (Bld) [#/Vol] 0.3 10 3/uL 0.3-0.8 [facility] Monocytes/100 WBC Auto (Bld) on 10-30-2023 Monocytes/100 WBC (Bld) 3.7 % 1.7-12.0 [facility] Neutrophils Auto (Bld) [#/Vo l]on 10-30-2023 Neutrophils (Bld) [#/Vol] 4.6 10 3/uL 1.4-6.5 [facility] Neutrophils/100 WBC Auto (Bl d)on 10-30-2023 Neutrophils/100 WBC (Bld) 63.9 % 43.0-75.0 [facility] No Panel Informationon 10-29 Eosinophils # (Auto) 0.1 10 3/uL 0.0-0.7 [facility] Immature Granulocyte # (Auto) 0.03 10 3/uL 0.00-0.03 [facility] Platelet mean volume Auto (B ld) [Entitic vol]on 10-30-2023 Platelet mean volume (Bld) [Entitic vol] 9.4 fL 9.5-13.5 [facility] Platelets Auto (Bld) [#/Vol] on 10-30-2023 Platelets (Bld) [#/Vol] 264 10 3/uL 150-450 [facility] RBC Auto (Bld) [#/Vol]on RBC (Bld) [#/Vol] 3.16 10 6/uL 4.20-5.40 [facility] Serum or plasma anion gap de terminationon 10-30-2023 Anion gap [Moles/Vol] 11.2 mmol/L [facility] MR head/brain wo/w conon MR head/brain wo/w con [facility] Main [place] [address] [place] [address] MRI Report Signed Patient: Ashly Mehta MR#: [id number] 8 : 1990 Acct:[id number] Age/Sex: 33 / F ADM Date: 10/08/23 Loc: MR Room: Type: [facility] Attending Dr: Akil Cox DO Copies [...] Ivan Holliday M.D.10/08/2023 4:38 PM Dictation Location: [place] [address] Transcribed By: [facility] 10/08/23 5904 Dictated By: Ivan Holliday II, MD 10/08/23 1630 Signed By: 10/08/23 1638 Normal [facility] HCG ( test) Bello d Ql (U)on 10-06-2023 HCG ( test) Ql (U) Negative NEGATIVE [facility] COVID + FLU Quick Testingon 07-07-2023 SARS-CoV-2 (COVID-19) RNA SURI+probe Ql (Unsp spec) Negative [facility] Other COVID + FLU Quick Testing Negative [facility] Other Alanine aminotransferase [En zymatic activity/volume] in Serum or PlasmaOrdered By: Celio Mullins on 07-03-2023 ALT [Catalytic activity/Vol] 22 U/L Normal 7-52 [facility] Comment on above: Performed By: #### L IPID, CMP #### [facility] [address] [place] [address] [place] Albumin [Mass/volume] in Ser um or Plasma by Bromocresol green (BCG) dye binding methoOrdered By: Celio Mullins on 07-03-2023 Albumin BCG dye [Mass/Vol] 4.4 g/dL 3.5-5.7 [facility] Alkaline phosphatase [Enzyma tic activity/volume] in Serum or PlasmaOrdered By: Celio Mullins on 07-03-2023 ALP [Catalytic activity/Vol] 68 U/L Normal 34-104 [facility] Comment on above: Performed By: #### L IPID, CMP #### [facility] [address] [place] [id number] [place] Aspartate aminotransferase [ Enzymatic activity/volume] in Serum or PlasmaOrdered By: Celio Mullins on 07-03-2023 AST [Catalytic activity/Vol] 18 U/L Normal 13-39 [facility] Comment on above: Performed By: #### L IPID, CMP #### [facility] [address] [place], [place] [id number] [place] Bilirubin.total [Mass/volume ] in Serum or PlasmaOrdered By: Celio Mullins on 07-03-2023 Bilirubin [Mass/Vol] 0.4 mg/dL Normal 0.3-1.0 [facility] Comment on above: Performed By: #### L IPID, CMP #### [facility] [address] [place] [address] [place] Calcium [Mass/volume] in Ser um or PlasmaOrdered By: Celio Mullins on 07-03-2023 Calcium [Mass/Vol] 9.4 mg/dL Normal 8.6-10.3 [facility] Comment on above: Performed By: #### L IPID, CMP #### [facility] [address] Carbon dioxide, total [Moles /volume] in Serum or PlasmaOrdered By: Celio Mullins on 07-03-2023 CO2 [Moles/Vol] 30.1 mmol/L Normal 21.0-31.0 [facility] Comment on above: Performed By: #### L IPID, CMP #### [facility] [address] [place] [address] [place] Chloride [Moles/volume] in S marta or PlasmaOrdered By: Celio Mullins on 07-03-2023 Chloride [Moles/Vol] 105 mmol/L Normal 98-107 [facility] Comment on above: Performed By: #### L IPID, CMP #### [facility] [address] [place] [address] [place] Cholesterol [Mass/volume] in Serum or PlasmaOrdered By: Celio Mullins on 07-03-2023 Cholesterol [Mass/Vol] 126 mg/dL Low 140-200 [facility] Comment on above: Chol less than 200 m g/dl low riskChol 201-239 mg/dl borderline riskChol 240 mg/dl and greater high risk Result Comment: Chol less than 200 mg/dl low risk Chol 201-239 mg/dl borderline risk Chol 240 mg/dl and greater high risk Performed By: #### L IPID, CMP #### [facility] [address] [place] [address] [place] Cholesterol in LDL Calc [Mas s/Vol]Ordered By: [...] 07-03-2023 Albumin [Mass/Vol] 4.4 g/dL Normal 3.5-5.7 [facility] Comment on above: Performed By: #### L IPID, CMP #### [facility] [address] [place] [id number] [place] GFR/1.73 sq M.predicted MDRD (S/P/Bld) [Vol rate/Area] mL/min/{1.73_m2} Normal [facility] Comment on above: Performed By: #### L IPID, CMP #### [facility] [address] [place] [id number] [place] Creatinine [Mass/volume] in Serum or PlasmaOrdered By: Celio Mullins on 07-03-2023 Creatinine [Mass/Vol] 0.63 mg/dL Normal 0.60-1.20 [facility] Comment on above: Performed By: #### L IPID, CMP #### [facility] [address] [place] [id number] [place] Glucose [Mass/volume] in Ser um or PlasmaOrdered By: Celio Mullins on 07-03-2023 Glucose [Mass/Vol] 97 mg/dL Normal 70-100 [facility] Comment on above: ADA recommended refe rence rangeRandom Glucose Reference Range is dependent on time and content of last meal. Glucose of more than 200 mg/dL in a nonstressed, ambulatory subject supports the diagnosis of Diabetes Mellitus. Result Comment: [place] om Glucose Reference Range is dependent on time and content of last meal. Glucose of more than 200 mg/dL in a nonstressed, ambulatory subject supports the diagnosis of Diabetes Mellitus. ADA recommended reference range Performed By: #### L IPID, CMP #### [facility] [address] [place] [id number] [place] Lipid Panelon 07-03-2023 LDL Cholesterol,Calculated 69 mg/dL Normal 0-100 [facility] Comment on above: Result Comment: LDL ATP III CLASSIFICATION LDL less than 100 mg/dL Optimal LDL 100-129 mg/dL Near or above optimal LDL 130-159 mg/dL Borderline high LDL 160-189 mg/dL High LDL greater than 189 mg/dL Very high Performed By: #### L IPID, CMP #### [facility] [address] Triglyceride w/Reflex 92 mg/dL Normal 0-149 [facility] Comment on above: Result Comment: TRIG ATP III CLASSIFICATION TRIG less than 150 mg/dL Normal TRIG 150-199 mg/dL Borderline high TRIG 200-500 mg/dL High TRIG greater than 500 mg/dL Very high Standard traceable to the Center for Disease Conrtrol and Prevention (CDC) test method. Performed By: #### L IPID, CMP #### [facility] [address] VLDL CHOLESTEROL 18 mg/dL Normal [facility] Comment on above: Performed By: #### L IPID, CMP #### [facility] [address] [place] [address] No Panel InformationOrdered By: Celio Mullins on 07-03-2023 Estimated GFR (CKD-EPI) > 60.0 mL/Min [facility] Creatinine Clearance (Chem N/A [facility] Potassium [Moles/volume] in Serum or PlasmaOrdered By: Celio Mullins on 07-03-2023 Potassium [Moles/Vol] 4.3 mmol/L Normal 3.5-5.1 [facility] Comment on above: Performed By: #### L IPID, CMP #### [place] [address] [place] Protein [Mass/volume] in Ser um or PlasmaOrdered By: Celio Mullins on 07-03-2023 Protein [Mass/Vol] 7.5 g/dL Normal 6.4-8.9 [facility] Comment on above: Performed By: #### L IPID, CMP #### [address] Serum globulin measurement b y calculation (mass/volume)Ordered By: Celio Mullins on 07-03-2023 Globulin (S) [Mass/Vol] 3.1 g/dL Normal [facility] Comment on above: Performed By: #### L IPID, CMP #### [facility] [address] [place] [address] Serum or plasma albumin/glob ulin mass ratioOrdered By: Celio Mullins on 07-03-2023 Albumin/Globulin [Mass ratio] 1.4 {ratio} Normal [facility] Comment on above: Performed By: #### L IPID, CMP #### [facility] [address] [place] [address] Serum or plasma anion gap de terminationOrdered By: Celio Mullins on 07-03-2023 Anion gap [Moles/Vol] 10.2 mmol/L Normal 6.0-15.0 [facility] Comment on above: Performed By: #### L IPID, CMP #### [facility] [address] [place] [address] Serum or plasma high density lipoprotein (HDL) cholesterol measurementOrdered By: Celio Mullins on 07-03-2023 Cholesterol in HDL [Mass/Vol] 39 mg/dL Normal 23-92 [facility] Comment on above: HDL CHOL ATP-III CLA SSIFICATION Cardiovascular RiskHDL > or equal to 60 mg/dL LOWHDL < 40 mg/dL HIGH Result Comment: HDL CHOL ATP-III CLASSIFICATION Cardiovascular Risk HDL > or equal to 60 mg/dL LOW HDL < 40 mg/dL HIGH Performed By: #### L IPID, CMP #### [facility] [address] [place] [address] Serum or plasma total choles terol/high density lipoprotein (HDL) cholesterol mass ratOrdered By: Celio Mullins on 07-03-2023 Cholesterol.total/Mali sterol in HDL [Mass ratio] 3.2 {ratio} Normal <5.0 [facility] Comment on above: Result Comment: PERF ORMED BY: [place] [address] PATHOLOGIST ATTENDANT [employer] NESHA MAIER M.D. Performed By: #### L IPID, CMP #### [facility] [address] [place] [address] [place] Sodium [Moles/volume] in Ser um or PlasmaOrdered By: Celio Mullins on 07-03-2023 Sodium [Moles/Vol] 141 mmol/L Normal 136-145 [facility] Comment on above: Performed By: #### L IPID, CMP #### [facility] [address] Triglyceride [Mass/volume] i n Serum or PlasmaOrdered By: Celio Mullins on 07-03-2023 Triglyceride [Mass/Vol] 92 mg/dL 0-149 [facility] Comment on above: TRIG ATP III CLASSIF ICATIONTRIG less than 150 mg/dL NormalTRIG 150-199 mg/dL Borderline highTRIG 200-500 mg/dL High TRIG greater than 500 mg/dL Very highStandard traceable to the Center for Disease Conrtrol and Prevention (CDC) test method. Urea nitrogen [Mass/volume] in Serum or PlasmaOrdered By: Celio Mullins on 07-03-2023 Urea nitrogen [Mass/Vol] 13 mg/dL Normal 7-25 [facility] Comment on above: Performed By: #### L IPID, CMP #### [address] A1C with Estimated Average G luon 07-01-2023 Glucose [Mass/Vol] 117 mg/dL Normal [facility] Comment on above: Order Comment: Reaso n for Exam Severe obesity (BMI >= 40);PCOS (polycystic ovarian syndrome Result Comment: PERF ORMED BY: [place] [address] PATHOLOGIST ATTENDANT [employer] NESHA MAIER M.D. Performed By: #### A POB, LIPA #### [facility] , #### CMP, A1C WTH eA #### [place] [address] [place] Alanine aminotransferase [En zymatic activity/volume] in Serum or PlasmaOrdered By: Celio Mullins on 07-01-2023 ALT [Catalytic activity/Vol] 21 U/L Normal 7-52 [facility] Comment on above: Order Comment: Reaso n for Exam Severe obesity (BMI >= 40);PCOS (polycystic ovarian syndrome NON FASTING Performed By: #### A POB, LIPA #### [facility] , #### CMP, A1C WT eA #### [facility] [address] Albumin [Mass/volume] in Ser um or Plasma by Bromocresol green (BCG) dye binding methoOrdered By: Celio Mullins on 07-01-2023 Albumin BCG dye [Mass/Vol] 4.6 g/dL 3.5-5.7 [facility] Alkaline phosphatase [Enzyma tic activity/volume] in Serum or PlasmaOrdered By: Celio Mullins on 07-01-2023 ALP [Catalytic activity/Vol] 72 U/L Normal 34-104 [facility] Comment on above: Order Comment: Reaso n for Exam Severe obesity (BMI >= 40);PCOS (polycystic ovarian syndrome NON FASTING Result Comment: PERF ORMED BY: [place] [address] PATHOLOGIST ATTENDANT [employer] NESHA MAIER M.D. Performed By: #### A POB, LIPA #### [facility] , #### CMP, A1C WT eA #### [facility] [address] [place] [address] Apolipoprotein B [Mass/volum e] in Serum or PlasmaOrdered By: Celio Mullins on 07-01-2023 Apolipoprotein B [Mass/Vol] 83 mg/dL Normal <90 [facility] Comment on above: Desirable < 90 Charissa almanza High 90 - 99 High 100 - 130 Very High >130 ASCVD RISK THERAPEUTIC TARGET CATEGORY APO B (mg/dL) Very High Risk <80 (if extreme risk <70) High Risk <90 Moderate Risk <90Performed at: [facility] - [facility] [address] [id number] Director: Jeanna Case MD, Phone: [phone] Order Comment: Nihar[place] n for Exam Severe obesity (BMI >= 40);PCOS (polycystic ovarian syndrome Result Comment: Hedy rabzach < 90 Borderline High 90 - 99 High 100 - 130 Very High >130 ASCVD RISK THERAPEUTIC TARGET CATEGORY APO B (mg/dL) Very High Risk <80 (if extreme risk <70) High Risk <90 Moderate Risk <90 Performed at: [facility] - [facility] [id number] Mirror Polisher: Jeanna Case MD, Phone: [phone] PERFORMED BY: [place] [address] PATHOLOGIST ATTENDANT [employer] NESHA MAIER M.D. Performed By: #### A POB, LIPA #### [facility] , #### CMP, A1C WT eA #### [facility] [address] [place] [address] Aspartate aminotransferase [ Enzymatic activity/volume] in Serum or PlasmaOrdered By: Celio Mullins on 07-01-2023 AST [Catalytic activity/Vol] 19 U/L Normal 13-39 [facility] Comment on above: Order Comment: Reaso n for Exam Severe obesity (BMI >= 40);PCOS (polycystic ovarian syndrome NON FASTING Performed By: #### A POB, LIPA #### [facility] , #### CMP, A1C WT eA #### [facility] [address] Bilirubin.total [Mass/volume ] in Serum or PlasmaOrdered By: Celio Mullins on 07-01-2023 Bilirubin [Mass/Vol] 0.4 mg/dL Normal 0.3-1.0 [facility] Comment on above: Order Comment: Reaso n for Exam Severe obesity (BMI >= 40);PCOS (polycystic ovarian syndrome NON FASTING Performed By: #### A POB, LIPA #### [facility] , #### CMP, A1C WTH eA #### [facility] [address] [place] [address] [place] Calcium [Mass/volume] in Ser um or PlasmaOrdered By: Celio Mullins on 07-01-2023 Calcium [Mass/Vol] 9.8 mg/dL Normal 8.6-10.3 [facility] Comment on above: Order Comment: Reaso n for Exam Severe obesity (BMI >= 40);PCOS (polycystic ovarian syndrome NON FASTING Performed By: #### A POB, LIPA #### [facility] , #### CMP, A1C WTH eA #### [address] Carbon dioxide, total [Moles /volume] in Serum or PlasmaOrdered By: Celio Mullins on 07-01-2023 CO2 [Moles/Vol] 25.3 mmol/L Normal 21.0-31.0 [facility] Comment on above: Order Comment: Reaso n for Exam Severe obesity (BMI >= 40);PCOS (polycystic ovarian syndrome NON FASTING Performed By: #### A POB, LIPA #### [facility] , #### CMP, A1C WTH eA #### [place] [address] [place] Chloride [Moles/volume] in S marta or PlasmaOrdered By: Celio Mullins on 07-01-2023 Chloride [Moles/Vol] 105 mmol/L Normal 98-107 [facility] Comment on above: Order Comment: Reaso n for Exam Severe obesity (BMI >= 40);PCOS (polycystic ovarian syndrome NON FASTING Performed By: #### A POB, LIPA #### [facility] , #### CMP, A1C WTH eA #### [address] Comprehensive Metabolic Pane landon 11-14-2023 Albumin [Mass/Vol] 4.6 g/dL Normal 3.5-5.7 [facility] Comment on above: Order Comment: Nihar[place] n for Exam Severe obesity (BMI >= 40);PCOS (polycystic ovarian syndrome NON FASTING Performed By: #### A POB, LIPA #### [facility] , #### CMP, A1C WTH eA #### [facility] [address] [place] [address] [place] GFR/1.73 sq M.predicted MDRD (S/P/Bld) [Vol rate/Area] mL/min/{1.73_m2} Normal [facility] Comment on above: Order Comment: Niharikao n for Exam Severe obesity (BMI >= 40);PCOS (polycystic ovarian syndrome NON FASTING Performed By: #### A POB, LIPA #### [facility] , #### CMP, A1C WT eA #### [place] [address] [place] Creatinine [Mass/volume] in Serum or PlasmaOrdered By: Celio Mullins on 07-01-2023 Creatinine [Mass/Vol] 0.64 mg/dL Normal 0.60-1.20 [facility] Comment on above: Order Comment: Reaso n for Exam Severe obesity (BMI >= 40);PCOS (polycystic ovarian syndrome NON FASTING Performed By: #### A POB, LIPA #### [facility] , #### CMP, A1C WTH eA #### [address] Glucose [Mass/volume] in Ser um or PlasmaOrdered By: Celio Mullins on 07-01-2023 Glucose [Mass/Vol] 95 mg/dL Normal 70-100 [facility] Comment on above: ADA recommended refe rence rangeRandom Glucose Reference Range is dependent on time and content of last meal. Glucose of more than 200 mg/dL in a nonstressed, ambulatory subject supports the diagnosis of Diabetes Mellitus. Order Comment: Nihar[place]ao n for Exam Severe obesity (BMI >= 40);PCOS (polycystic ovarian syndrome NON FASTING Result Comment: [place] om Glucose Reference Range is dependent on time and content of last meal. Glucose of more than 200 mg/dL in a nonstressed, ambulatory subject supports the diagnosis of Diabetes Mellitus. ADA recommended reference range Performed By: #### A POB, LIPA #### [facility] , #### CMP, A1C WTH eA #### [facility] [address] Glucose mean value [Mass/vol ume] in Blood Estimated from glycated hemoglobinOrdered By: Celio Mullins on 07-01-2023 Average glucose Estimated from glycated hemoglobin (Bld) [Mass/Vol] 117 mg/dL [facility] Hemoglobin A1c percentageOrd ered By: Celio Mullins on 07-01-2023 HbA1c (Bld) [Mass fraction] 5.7 % High 4.3-5.6 [facility] Comment on above: Increased risk for d iabetes: 5.7 - 6.4diabetes: >6.4glycemic control for adults with diabetes: <7.0 Order Comment: Reaso n for Exam Severe obesity (BMI >= 40);PCOS (polycystic ovarian syndrome Result Comment: Incr eased risk for diabetes: 5.7 - 6.4 diabetes: >6.4 glycemic control for adults with diabetes: <7.0 Performed By: #### A POB, LIPA #### [facility] , #### CMP, A1C WTH eA #### [facility] [address] Lipoprotein (a)on 07-01-2023 Lipoprotein a [Mass/Vol] 13.0 mg/dL Normal <75.0 [facility] Comment on above: Order Comment: Reaso n for Exam Severe obesity (BMI >= 40);PCOS (polycystic ovarian syndrome Result Comment: Note : Values greater than or equal to 75.0 nmol/L may indicate an independent risk factor for CHD, but must be evaluated with caution when applied to non- populations due to the influence of genetic factors on Lp(a) across ethnicities. Performed at: [facility] [id number] Mirror Polisher: Cassius Zhong PhD, Phone: [phone] Performed By: #### A POB, LIPA #### [facility] , #### CMP, A1C WT eA #### [address] No Panel InformationOrdered By: Celio Mullins on 07-01-2023 Estimated GFR (CKD-EPI) > 60.0 mL/Min [facility] Creatinine Clearance (Chem N/A [facility] Potassium [Moles/volume] in Serum or PlasmaOrdered By: Celio Mullins on 07-01-2023 Potassium [Moles/Vol] 3.8 mmol/L Normal 3.5-5.1 [facility] Comment on above: Order Comment: Reaso n for Exam Severe obesity (BMI >= 40);PCOS (polycystic ovarian syndrome NON FASTING Performed By: #### A POB, LIPA #### [facility] , #### CMP, A1C WT eA #### [address] Protein [Mass/volume] in Ser um or PlasmaOrdered By: Celio Mullins on 07-01-2023 Protein [Mass/Vol] 7.8 g/dL Normal 6.4-8.9 [facility] Comment on above: Order Comment: Reaso n for Exam Severe obesity (BMI >= 40);PCOS (polycystic ovarian syndrome NON FASTING Performed By: #### A POB, LIPA #### [facility] , #### CMP, A1C WT eA #### [place] [address] [place] Serum globulin measurement b y calculation (mass/volume)Ordered By: Celio Mullins on 07-01-2023 Globulin (S) [Mass/Vol] 3.2 g/dL Normal [facility] Comment on above: Order Comment: Reaso n for Exam Severe obesity (BMI >= 40);PCOS (polycystic ovarian syndrome NON FASTING Performed By: #### A POB, LIPA #### [facility] , #### CMP, A1C WT eA #### [facility] [address] Serum or plasma albumin/glob ulin mass ratioOrdered By: Celio Mullins on 07-01-2023 Albumin/Globulin [Mass ratio] 1.4 {ratio} Normal [facility] Comment on above: Order Comment: Reaso n for Exam Severe obesity (BMI >= 40);PCOS (polycystic ovarian syndrome NON FASTING Performed By: #### A POB, LIPA #### [facility] , #### CMP, A1C [facility] eA #### [facility] [address] Serum or plasma anion gap de terminationOrdered By: Celio Mullins on 07-01-2023 Anion gap [Moles/Vol] 11.5 mmol/L Normal 6.0-15.0 [facility] Comment on above: Order Comment: Reaso n for Exam Severe obesity (BMI >= 40);PCOS (polycystic ovarian syndrome NON FASTING Performed By: #### A POB, LIPA #### [facility] , #### CMP, A1C [facility] eA #### [address] Serum or plasma lipoprotein a measurement (moles/volume)Ordered [...] on Lp(a) across ethnicities.Performed at: - [facility] [address] [id number] Director: Cassius Zhong PhD, Phone: [phone] Sodium [Moles/volume] in Ser um or PlasmaOrdered By: Celio Mullins on 07-01-2023 Sodium [Moles/Vol] 138 mmol/L Normal 136-145 [facility] Comment on above: Order Comment: Reaso n for Exam Severe obesity (BMI >= 40);PCOS (polycystic ovarian syndrome NON FASTING Performed By: #### A POB, LIPA #### [facility] , #### CMP, A1C [facility] eA #### [facility] [address] Urea nitrogen [Mass/volume] in Serum or PlasmaOrdered By: Celio Mullins on 07-01-2023 Urea nitrogen [Mass/Vol] 16 mg/dL Normal 7-25 [facility] Comment on above: Order Comment: Reaso n for Exam Severe obesity (BMI >= 40);PCOS (polycystic ovarian syndrome NON FASTING Performed By: #### A POB, LIPA #### [facility] , #### CMP, A1C [facility] eA #### [facility] [address] COVID Quick Testingon 2022 Result Negative [facility] Other SARS-CoV-2 (COVID-19) RNA NA A+probe Ql (Resp)on 02-11-2023 SARS-CoV-2 (COVID-19) RNA SURI+probe Ql (Unsp spec) Negative [facility] Other DHEA-SULFATEon 01-01-2023 DHEA-Sulfate 95.3 ug/dL Normal 84.8-378.0 [facility] Comment on above: Performed By: #### Carl ABARCA #### [facility] [address] [address] [address] Kaushik Palomares FSHon 01-01-2023 FSH 4.6 mIU/mL Normal [facility] Comment on above: Result Comment: Adul t Female: Follicular phase 3.5 - 12.5 Ovulation phase 4.7 - 21.5 Luteal phase 1.7 - 7.7 Postmenopausal 25.8 - 134.8 Performed By: #### C BC #### [facility] [address] [place] [address] Dr. Kaushik Palomares LUTEINIZING HORMONE (LH)on 01-01-2023 LH 3.5 mIU/mL Normal [facility] Comment on above: Result Comment: Adul t Female: Follicular phase 2.4 - 12.6 Ovulation phase 14.0 - 95.6 Luteal phase 1.0 - 11.4 Postmenopausal 7.7 - 58.5 Performed By: #### L BCLH #### [facility] [address] [place] [address] Dr. Kaushik Palomares CBC AUTO DIFFon 12-31-2022 BASO # 0.1 103/ul Normal 0.0-0.1 [facility] Comment on above: Performed By: #### C BC #### [facility] [address] [place] [address] Dr. Kaushik Palomares Basophils/100 WBC (Bld) 0.8 % Normal 0.2-2.0 [facility] Comment on above: Performed By: #### C BC #### [facility] [address] [place] [address] Dr. Kaushik Palomares EO # 0.1 103/ul Normal 0.0-0.7 [facility] Comment on above: Performed By: #### C BC #### [facility] [address] [place] [address] Dr. Kaushik Palomares Eosinophils/100 WBC (Bld) 1.7 % Normal 0.9-7.0 [facility] Comment on above: Performed By: #### C BC #### [facility] [address] [place] [address] Dr. Kaushik Palomares Erythrocyte distribution width (RBC) [Ratio] 12.8 % Normal 11.0-15.0 [facility] Comment on above: Performed By: #### C BC #### [facility] [address] [place] [address] Dr. Kaushik Palomares Hematocrit (Bld) [Volume fraction] 33.0 % Critically low 36.0-48.0 [facility] Comment on above: Performed By: #### C BC #### [facility] [address] [place] [address] Dr. Kaushik Palomares Hemoglobin (Bld) [Mass/Vol] 11.0 g/dL Critically low 12.0-16.0 [facility] Comment on above: Performed By: #### C BC #### [facility] [address] [place] [address] Dr. Kaushik Palomares IG # 0.03 10e3/ul Normal 0.00-0.03 [facility] Comment on above: Performed By: #### C BC #### [facility] [address] [place] [address] Dr. Kaushik Palomares IG % 0.5 % Normal 0.0-0.5 [facility] Comment on above: Performed By: #### C BC #### [facility] [address] [place] [address] Dr. Kaushik Palomares LYMPH # 2.4 103/ul Normal 1.2-3.8 [facility] Comment on above: Performed By: #### C BC #### [facility] [address] [place] [address] Dr. Kaushik Palomares Lymphocytes/100 WBC (Bld) 36.6 % Normal 20.5-60.0 [facility] Comment on above: Performed By: #### C BC #### [facility] [address] [place] [address] Dr. Kaushik Palomares MANUAL DIFF REQ NO Normal [facility] Comment on above: Performed By: #### C BC #### [facility] [address] [place] [address] Dr. Kaushik Palomares MCH (RBC) [Entitic mass] 29.0 pg Normal 26.7-34.0 [facility] Comment on above: Performed By: #### C BC #### [facility] [address] [place] [address] Dr. aKushik Palomares MCHC (RBC) [Mass/Vol] 33.3 g/dL Normal 29.9-35.2 [facility] Comment on above: Performed By: #### C BC #### [facility] [address] [place] [address] Dr. Kaushik Palomares MCV (RBC) [Entitic vol] 87.1 fL Normal 81.0-99.0 [facility] Comment on above: Performed By: #### C BC #### [facility] [address] [place] [address] Dr. Kaushik Palomares MONO # 0.2 103/ul Critically low 0.3-0.8 [facility] Comment on above: Performed By: #### C BC #### [facility] [address] [place] [address] Dr. Kaushik Palomares Monocytes/100 WBC (Bld) 3.6 % Normal 1.7-12.0 [facility] Comment on above: Performed By: #### C BC #### [facility] [address] [place] [address] Dr. Kaushik Palomares NEUT # 3.7 103/ul Normal 1.4-6.5 [facility] Comment on above: Performed By: #### C BC #### [facility] [address] [place] [address] Dr. Kaushik Palomares Neutrophils/100 WBC (Bld) 56.8 % Normal 43.0-75.0 [facility] Comment on above: Performed By: #### C BC #### [facility] [address] [place] [address] Dr. Kaushik Palomares Platelet mean volume (Bld) [Entitic vol] 9.8 fL Normal 9.5-13.5 [facility] Comment on above: Performed By: #### C BC #### [facility] [address] [place] [address] Dr. Kaushik Palomares PLT 234 103/ul Normal 150-450 [facility] Comment on above: Performed By: #### C BC #### [facility] [address] [place] [address] Dr. Kaushik Palomares RBC 3.79 106/ul Critically low 4.20-5.40 [facility] Comment on above: Performed By: #### C BC #### [facility] [address] [place] [address] Dr. Kaushik Palomares WBC 6.5 103/ul Normal 4.0-11.0 [facility] Comment on above: Performed By: #### C BC #### [facility] [address] [place] [address] Dr. Kaushik Palomares FREE T4on 12-31-2022 Free T4 [Mass/Vol] 0.79 ng/dL Normal 0.76-1.46 [facility] Comment on above: Performed By: #### F T4 #### [facility] [address] [address] [address] Kaushik Palomares GLYCOHEMOGLOBIN A1Con 2022 ADA RECOMMENDATION SEE BELOW Normal [facility] Comment on above: Result Comment: ADA RECOMMENDED LIMIT 4.0 - 6.0 ADA THERAPEUTIC TARGET < 7.0 ACTION SUGGESTED > 7.0 Performed By: #### A 1C #### [facility] [address] [address] [address] Kaushik Palomares Glucose [Mass/Vol] 111 mg/dL Normal [facility] Comment on above: Performed By: #### A 1C #### [facility] [address] [place] [address] Dr. Kaushik Palomares HbA1c (Bld) [Mass fraction] 5.5 % Normal 4.5-6.2 [facility] Comment on above: Performed By: #### A 1C #### [facility] [address] [address] [address] Kaushik Palomares TSHon 12-31-2022 TSH 1.114 uIU/mL Normal 0.358-3.740 [facility] Comment on above: Performed By: #### C BC #### [facility] [address] [place] [address] Dr. Kaushik Palomares US PELVIS AND TRANSVAGon [...] Date: 2022-11-26 15:58 Normal [facility] XR SACRUM_COCCYXon 3 XR SACRUM_COCCYX EXAMINATION: [...] by: SUGEY MACDONALD Date: 2022-11-08 10:01 Normal [facility] PAP ACOG PANEL 2: 30 to 65on 11-05-2022 . . Normal [facility] Comment on above: Result Comment: Perf ormed at: WB Performed By: #### C BC #### [facility] [address] [address] [address] Kaushik Palomares Age Gdln ACOG Testing 30-65 Normal [facility] Comment on above: Performed By: #### C BC #### [facility] [address] [address] [address] Kaushik Palomares DIAGNOSIS: Comment Normal [facility] Comment on above: Result Comment: NEGA TIVE FOR INTRAEPITHELIAL LESION OR MALIGNANCY. Performed at: WB Performed By: #### C BC #### [facility] [address] [address] [address] Kaushik Palomares HPV Aptima Negative Normal Negative [facility] Comment on above: Result Comment: This nucleic acid amplification test detects fourteen high-risk HPV types (16,18,31,33,35,39,45,51,52,56,58,59,66,68) without differentiation. Performed at: =G Performed By: #### C BC #### [facility] [address] [place] [address] Dr. Kaushik Palomares HPV Genotype Reflex Comment Normal [facility] Comment on above: Result Comment: Crit eria not met, HPV Genotype not performed. Performed at: WB Performed By: #### C BC #### [facility] [address] [place] [address] Dr. Kaushik Palomares Methodology: Comment Normal [facility] Comment on above: Result Comment: This liquid based ThinPrep(R) pap test was screened with the use of an image guided system. Performed at: WB Performed By: #### C BC #### [facility] [address] [place] [address] Dr. Kaushik Palomares Note: Comment Normal [facility] Comment on above: Result Comment: The [...] By: #### C BC #### [facility] [address] [place] [address] Dr. Kaushik Palomares Performed by: Comment Normal [facility] Comment on above: Result Comment: Robi Graham Public [employer] Registrar (ASCP) Performed at: WB Performed By: #### C BC #### [facility] [address] [place] [address] Dr. Kaushik Palomares Specimen adequacy: Comment Normal [facility] Comment on above: Result Comment: Sati sfactory for evaluation. Endocervical and/or squamous metaplastic cells (endocervical component) are present. Performed at: WB Performed By: #### C BC #### [facility] [address] [place] [address] Dr. Kaushik Palomares COVID/FLU RT-PCRon 2 SARS-CoV-2 (COVID-19) RNA SURI+probe Ql (Unsp spec) Negative [facility] Zero9 Other COVID/FLU RT-PCR Negative [facility] Zero9 Other HCG-BETA SUBUNIT QUANTon hCG,Beta Subunit,Qnt,Serum <1 Normal [facility] Comment on above: Result Comment: Fema le (Non-) 0 - 5 (Postmenopausal) 0 - 8 . Female () Weeks of Gestation 3 6 - 71 4 10 - 750 5 180 - 3190 6 547 - 40797 7 [phone] 8 [phone] 9 [phone] 10 [phone] -[phone] 12 [phone] -[phone] 14 61396 - 13908 15 75085 - 71109 16 8739 - 69877 17 6320 - 16093 18 9520 - 69105 Rg ECLIA methodology Performed By: #### H CGSUB #### [facility] [address] [place] [address] Dr. Kaushik Palomares T4 LABCORPon 01-22-2022 T4 [Mass/Vol] 7.8 ug/dL Normal 4.5-12.0 [facility] Comment on above: Performed By: #### T 4LC #### [facility] [address] [place] [address] Dr. Kaushik Palomares CBC AUTO DIFFon 01-21-2022 BASO # 0.1 103/ul Normal 0.0-0.1 [facility] Comment on above: Performed By: #### C BC #### [facility] [address] [place] [address] Dr. Kaushik Palomares Basophils/100 WBC (Bld) 0.6 % Normal 0.2-2.0 [facility] Comment on above: Performed By: #### C BC #### [facility] [address] [place] [address] Dr. Kaushik Palomares EO # 0.1 103/ul Normal 0.0-0.7 [facility] Comment on above: Performed By: #### C BC #### [facility] [address] [place] [address] Dr. Kaushik Palomares Eosinophils/100 WBC (Bld) 1.2 % Normal 0.9-7.0 [facility] Comment on above: Performed By: #### C BC #### [facility] [address] [place] [address] Dr. Kaushik Palomares Erythrocyte distribution width (RBC) [Ratio] 13.3 % Normal 11.0-15.0 [facility] Comment on above: Performed By: #### C BC #### [facility] [address] [place] [address] Dr. Kaushik Palomares Hematocrit (Bld) [Volume fraction] 40.0 % Normal 36.0-48.0 [facility] Comment on above: Performed By: #### C BC #### [facility] [address] [place] [address] Dr. Kaushik Palomares Hemoglobin (Bld) [Mass/Vol] 12.7 g/dL Normal 12.0-16.0 [facility] Comment on above: Performed By: #### C BC #### [facility] [address] [place] [address] Dr. Kaushik Palomares IG # 0.02 10e3/ul Normal 0.00-0.03 [facility] Comment on above: Performed By: #### C BC #### [facility] [address] [place] [address] Dr. Kaushik Palomares IG % 0.2 % Normal 0.0-0.5 [facility] Comment on above: Performed By: #### C BC #### [facility] [address] [place] [address] Dr. Kaushik Palomares LYMPH # 3.0 103/ul Normal 1.2-3.8 [facility] Comment on above: Performed By: #### C BC #### [facility] [address] [place] [address] Dr. Kaushik Palomares Lymphocytes/100 WBC (Bld) 32.9 % Normal 20.5-60.0 [facility] Comment on above: Performed By: #### C BC #### [facility] [address] [place] [address] Dr. Kaushik Palomares MANUAL DIFF REQ NO Normal [facility] Comment on above: Performed By: #### C BC #### [facility] [address] [place] [address] Dr. Kaushik Palomares MCH (RBC) [Entitic mass] 28.5 pg Normal 26.7-34.0 [facility] Comment on above: Performed By: #### C BC #### [facility] [address] [place] [address] Dr. Kaushik Palomares MCHC (RBC) [Mass/Vol] 31.8 g/dL Normal 29.9-35.2 [facility] Comment on above: Performed By: #### C BC #### [facility] [address] [place] [address] Dr. Kaushik Palomares MCV (RBC) [Entitic vol] 89.7 fL Normal 81.0-99.0 [facility] Comment on above: Performed By: #### C BC #### [facility] [address] [place] [address] Dr. Kaushik Palomares MONO # 0.5 103/ul Normal 0.3-0.8 [facility] Comment on above: Performed By: #### C BC #### [facility] [address] [place] [address] Dr. Kaushik Palomares Monocytes/100 WBC (Bld) 5.1 % Normal 1.7-12.0 [facility] Comment on above: Performed By: #### C BC #### [facility] [address] [place] [address] Dr. Kaushik Palomaers NEUT # 5.4 103/ul Normal 1.4-6.5 [facility] Comment on above: Performed By: #### C BC #### [facility] [address] [place] [address] Dr. Kaushik Palomares Neutrophils/100 WBC (Bld) 60.0 % Normal 43.0-75.0 [facility] Comment on above: Performed By: #### C BC #### [facility] [address] [place] [address] Dr. Kaushik Palomares Platelet mean volume (Bld) [Entitic vol] 9.3 fL Critically low 9.5-13.5 [facility] Comment on above: Performed By: #### C BC #### [facility] [address] [place] [address] Dr. Kaushik Palomares PLT 221 103/ul Normal 150-450 [facility] Comment on above: Performed By: #### C BC #### [facility] [address] [address] [address] Kaushik Palomares RBC 4.46 106/ul Normal 4.20-5.40 [facility] Comment on above: Performed By: #### C BC #### [facility] [address] [place] [address] Dr. Kaushik Palomares WBC 9.0 103/ul Normal 4.0-11.0 [facility] Comment on above: Performed By: #### C BC #### [facility] [address] [place] [address] Dr. Kaushik Palomares GLYCOHEMOGLOBIN A1Con 2021 ADA RECOMMENDATION SEE BELOW Normal [facility] Comment on above: Result Comment: ADA RECOMMENDED LIMIT 4.0 - 6.0 ADA THERAPEUTIC TARGET < 7.0 ACTION SUGGESTED > 7.0 Performed By: #### C BC #### [facility] [address] [place] [address] Dr. Kaushik Palomares Glucose [Mass/Vol] 94 mg/dL Normal [facility] Comment on above: Performed By: #### C BC #### [facility] [address] [place] [address] Dr. Kaushik Palomares HbA1c (Bld) [Mass fraction] 4.9 % Normal 4.5-6.2 [facility] Comment on above: Performed By: #### C BC #### [facility] [address] [place] [address] Dr. Kaushik Palomares LIPID PROFILEon 01-21-2022 CHOL-HDL RATIO NORM SEE BELOW Normal [facility] Comment on above: Result Comment: 3.3 - 4.4 LOW RISK 4.4 - 7.1 AVERAGE RISK 7.1 - 11.0 MODERATE RISK >11.0 HIGH RISK Performed By: #### L IPID, CMP, TSH #### [facility] [address] [place] [address] Dr. Kaushik Palomares Cholesterol [Mass/Vol] 168 mg/dL Normal <=200 [facility] Comment on above: Performed By: #### L IPID, CMP, TSH #### [facility] [address] [place] [address] Dr. Kaushik Palomares Cholesterol in HDL [Mass/Vol] 41 mg/dL Normal 40-60 [facility] Comment on above: Performed By: #### L IPID, CMP, TSH #### [facility] [address] [place] [address] Dr. Kaushik Palomares Cholesterol in LDL [Mass/Vol] 90.2 mg/dL Normal [facility] Comment on above: Performed By: #### L IPID, CMP, TSH #### [facility] [address] [place] [address] Dr. Kaushik Palomares Cholesterol.total/Mali sterol in HDL [Mass ratio] 4.1 {ratio} Normal [facility] Comment on above: Performed By: #### L IPID, CMP, TSH #### [facility] [address] [place] [address] Dr. Kaushik Palomares HDL NORMAL > or = 60 mg/dl - LO W CARDIOVASCULAR RISK <40 mg/dl - HIGH CARDIOVASCULAR RISK Normal [facility] Comment on above: Performed By: #### L IPID, CMP, TSH #### [facility] [address] [place] [address] Dr. Kaushik Palomares LDL CALC NORMAL SEE BELOW Normal [facility] Comment on above: Result Comment: <100 mg/dl OPTIMAL 100 - 129 mg/dl NEAR OR ABOVE OPTIMAL 130 - 159 mg/dl BORDERLINE HIGH 160 - 189 mg/dl HIGH >190 mg/dl VERY HIGH Performed By: #### L IPID, CMP, TSH #### [facility] [address] [place] [address] Dr. Kaushik Palomares Triglyceride [Mass/Vol] 184 mg/dL Critically high <=150 [facility] Comment on above: Performed By: #### L IPID, CMP, TSH #### [facility] [address] [address] [address] Kaushik Palomares VLDL CALC 36.8 mg/dL Normal [facility] Comment on above: Performed By: #### L IPID, CMP, TSH #### [facility] [address] [address] [address] Kaushik Palomares MICROALBUMIN, RAND URon - mALB 2.0 mg/L Normal <=30.0 [facility] Comment on above: Performed By: #### C BC #### [facility] [address] [address] [address] Kaushik Palomares PROF 14(COMP METB)on 022 Albumin [Mass/Vol] 3.7 g/dL Normal 3.4-5.0 [facility] Comment on above: Performed By: #### L IPID, CMP, TSH #### [facility] [address] [address] [address] Kaushik Palomares Albumin/Globulin [Mass ratio] 0.9 {ratio} Normal [facility] Comment on above: Performed By: #### L IPID, CMP, TSH #### [facility] [address] [place] [address] Dr. Kaushik Palomares ALP [Catalytic activity/Vol] 53 U/L Normal 46-116 [facility] Comment on above: Performed By: #### L IPID, CMP, TSH #### [facility] [address] [address] [address] Kaushik Palomares ALT [Catalytic activity/Vol] 44 U/L Normal 14-59 [facility] Comment on above: Performed By: #### L IPID, CMP, TSH #### [facility] [address] [place] [address] Dr. Kaushik Palomares Anion gap [Moles/Vol] 6.8 mmol/L Normal [facility] Comment on above: Performed By: #### L IPID, CMP, TSH #### [facility] [address] [place] [address] Dr. Kaushik Palomares AST [Catalytic activity/Vol] 22 U/L Normal 15-37 [facility] Comment on above: Performed By: #### L IPID, CMP, TSH #### [facility] [address] [address] [address] Kaushik Palomares Bilirubin [Mass/Vol] 0.3 mg/dL Normal 0.2-1.0 [facility] Comment on above: Performed By: #### L IPID, CMP, TSH #### [facility] [address] [address] [address] Kaushik Palomares Calcium [Mass/Vol] 9.2 mg/dL Normal 8.5-10.1 [facility] Comment on above: Performed By: #### L IPID, CMP, TSH #### [facility] [address] [address] [address] Kaushik Palomares Chloride [Moles/Vol] 102 mmol/L Normal 98-107 [facility] Comment on above: Performed By: #### L IPID, CMP, TSH #### [facility] [address] [address] [address] Kaushik Palomares CO2 [Moles/Vol] 31.4 mmol/L Normal 21.0-32.0 [facility] Comment on above: Performed By: #### L IPID, CMP, TSH #### [facility] [address] [address] [address] Kaushik Palomares Creatinine [Mass/Vol] 0.71 mg/dL Normal 0.55-1.02 [facility] Comment on above: Performed By: #### L IPID, CMP, TSH #### [facility] [address] [address] [address] Kaushik Palomares EGFR-AF GEORGIAN >60 Normal >=60 [facility] Comment on above: Performed By: #### L IPID, CMP, TSH #### [facility] [address] [address] [address] Kaushik Palomares EGFR-NON AF GEORGIAN >60 Normal >=60 [facility] Comment on above: Performed By: #### L IPID, CMP, TSH #### [facility] [address] [address] [address] Kaushik Palomares Globulin (S) [Mass/Vol] 4.2 g/dL Normal [facility] Comment on above: Performed By: #### L IPID, CMP, TSH #### [facility] [address] [address] [address] Kaushik Palomares Glucose [Mass/Vol] 93 mg/dL Normal 74-106 [facility] Comment on above: Performed By: #### L IPID, CMP, TSH #### [facility] [address] [address] [address] Kaushik Palomares Potassium [Moles/Vol] 4.2 mmol/L Normal 3.5-5.1 [facility] Comment on above: Performed By: #### L IPID, CMP, TSH #### [facility] [address] [place] [address] Dr. Kaushik Palomares Protein [Mass/Vol] 7.9 g/dL Normal 6.4-8.2 [facility] Comment on above: Performed By: #### L IPID, CMP, TSH #### [facility] [address] [place] [address] Dr. Kaushik Palomares Sodium [Moles/Vol] 136 mmol/L Normal 136-145 [facility] Comment on above: Performed By: #### L IPID, CMP, TSH #### [facility] [address] [place] [address] Dr. Kaushik Palomares Urea nitrogen [Mass/Vol] 11.0 mg/dL Normal 7.0-18.0 [facility] Comment on above: Performed By: #### L IPID, CMP, TSH #### [facility] [address] [place] [address] Dr. Kaushik Palomares Urea nitrogen/Creatinine [Mass ratio] 15.5 mg/mg Normal [facility] Comment on above: Performed By: #### L IPID, CMP, TSH #### [facility] [address] [place] [address] Dr. Kaushik Palomares TSHon 01-21-2022 TSH 1.298 uIU/mL Normal 0.358-3.740 [facility] Comment on above: Performed By: #### C BC #### [facility] [address] [address] [address] Kaushik Palomares TSH RANGE SEE BELOW Normal [facility] Comment on above: Result Comment: <0.3 4 UIU/ml HYPERTHYROID 0.34-5.60 UIU/ml EUTHYROID >5.60 UIU/ml HYPOTHYROID Performed By: #### C BC #### [facility] [address] [address] [address] Kaushik Palomares COVID Quick Testingon 2020 Result Negative [facility] Other Quick Strepon 06-17-2021 S. pyogenes Org specific cx Ql (Throat) Negative [employer] Other Quick Strep [facility] Other Urinalysis - AUTOMATEDon Appearance (U) cloudy [employer] Other Bilirubin Ql (U) Negative [employer] Other Color (U) yellow [facility] Other Glucose Ql (U) Negative [employer] Other Hemoglobin Ql (U) large [employer] Other Ketones Ql (U) Negative [employer] Other Leukocyte esterase Test strip Ql (U) trace [facility] Other Nitrite Ql (U) Positive [employer] Other pH (U) 5.5 [pH] [facility] Other Protein Ql (U) 100 [employer] Other Specific gravity (U) [Rel density] 1.025 [facility] Other Urobilinogen (U) [Mass/Vol] 0.2 mg/dL [facility] Other [facility] - [facility] Other Urine Cultureon 05-31-2021 Urine Culture >100,000 [facility] Other Urine Culture <16 [facility] Other Urine Culture >16 [facility] Other Urine Culture <4 [facility] Other Urine Culture 8 [facility] Other Urine Culture <2 [facility] Other Urine Culture <1 [facility] Other Urine Culture >2 [facility] Other Urine Culture <0.5 [facility] Other Urine Culture >8 [facility] Other Urine Culture >4 [facility] Other Urine Culture <32 [facility] Other Urine Culture >2/38 [facility] Other Vital Signs Date Time Vital Sign Value 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 11-26-2023 08:40-0400 Body height 162.56 cm ROSITA Marc Work Phone: [facility] 11-26-2023 08:40-0400 Body mass index (BMI) [Ratio] 52.9 kg/m2 ROSITA Marc Work Phone: [facility] 11-26-2023 08:40-0400 Body weight 139.79 kg ROSITA Marc Work Phone: [facility] 11-26-2023 08:40-0400 Diastolic blood pressure 79 mm[Hg] ROSITA Marc Work Phone: [facility] 11-26-2023 08:40-0400 Heart rate 97 /min LABORATORY TECHNOLOGIST Manisha Denyrbacher Work Phone: [facility] 11-26-2023 08:40-0400 SaO2% (BldA) [Mass fraction] 99 % LABORATORY TECHNOLOGIST Manisha Denyrbacher Work Phone: [facility] 11-26-2023 08:40-0400 Systolic blood pressure 131 mm[Hg] LABORATORY TECHNOLOGISTJosé Miguel ColladoManisha Denyrbacher Work Phone: [facility] 11-03-2023 14:06-0400 Body height 162.56 cm LABORATORY TECHNOLOGISTJosé Miguel ColladoManisha Denyrbacher Work Phone: [facility] 11-03-2023 14:06-0400 Body mass index (BMI) [Ratio] 53.1 kg/m2 LABORATORY TECHNOLOGISTJosé Miguel Barclayrbacher Work Phone: [facility] 11-03-2023 14:06-0400 Body weight 140.61 kg LABORATORY TECHNOLOGIST Manisha Denyrbacher Work Phone: [facility] 11-03-2023 14:06-0400 Diastolic blood pressure 78 mm[Hg] LABORATORY TECHNOLOGIST Manisha Denyrbacher Work Phone: [facility] 11-03-2023 14:06-0400 Heart rate 105 /min LABORATORY TECHNOLOGISTJosé Miguel Barclayrbacher Work Phone: [facility] 11-03-2023 14:06-0400 SaO2% (BldA) [Mass fraction] 98 % LABORATORY TECHNOLOGIST Manisha Denyrbacher Work Phone: [facility] 11-03-2023 14:06-0400 Systolic blood pressure 118 mm[Hg] LABORATORY TECHNOLOGISTJosé Miguel Barclayrbacher Work Phone: [facility] 10-08-2023 10:50-0500 Body height 162.56 cm LABORATORY TECHNOLOGISTJosé Miguel Barclayrbacher Work Phone: [facility] 10-08-2023 10:50-0500 Body weight 139.25 kg LABORATORY TECHNOLOGISTJosé Miguel Parksacher Work Phone: [facility] 10-01-2023 09:20-0500 Body height 162.56 cm LABORATORY TECHNOLOGISTJosé Miguel Barclayrbacher Work Phone: [facility] 10-01-2023 09:20-0500 Body mass index (BMI) [Ratio] 53.6 kg/m2 LABORATORY TECHNOLOGISTJosé Miguel Parksacher Work Phone: [facility] 10-01-2023 09:20-0500 Body weight 141.69 kg LABORATORY TECHNOLOGISTJosé Miguel Parksacher Work Phone: [facility] 10-01-2023 09:20-0500 Diastolic blood pressure 75 mm[Hg] LABORATORY TECHNOLOGISTJosé Miguel Barclayrbacher Work Phone: [facility] 10-01-2023 09:20-0500 Heart rate 85 /min LABORATORY TECHNOLOGISTJosé Miguel Barclayrbacher Work Phone: [facility] 10-01-2023 09:20-0500 Respiratory rate 18 /min LABORATORY TECHNOLOGISTJosé Miguel Parksacher Work Phone: [facility] 10-01-2023 09:20-0500 SaO2% (BldA) [Mass fraction] 99 % LABORATORY TECHNOLOGISTJosé Miguel Parksacher Work Phone: [facility] 10-01-2023 09:20-0500 Systolic blood pressure 123 mm[Hg] LABORATORY TECHNOLOGISTJosé Miguel Barclayrbacher Work Phone: [facility] 09-03-2023 08:00-0500 Body height 162.56 cm LABORATORY TECHNOLOGISTJosé Miguel Parksacher Work Phone: [facility] 09-03-2023 08:00-0500 Body weight 138.79 kg LABORATORY TECHNOLOGISTJosé Miguel Barclayrbacher Work Phone: [facility] 09-03-2023 08:00-0500 Diastolic blood pressure 78 mm[Hg] LABORATORY TECHNOLOGIST Manisha Charlyacher Work Phone: [facility] 09-03-2023 08:00-0500 Systolic blood pressure 118 mm[Hg] LABORATORY TECHNOLOGIST Manisha Barclayrbacher Work Phone: [facility] 08-19-2023 09:45-0500 Body height 162.56 cm Nely Cruz Other [facility] 08-13-2023 14:00-0500 Body height 162.56 cm Manisha Tari Other [facility] 08-13-2023 14:00-0500 Body mass index (BMI) [Ratio] 52.35 kg/m2 Manisha Tari Other [facility] Other 08-13-2023 14:00-0500 Body weight 138.35 kg Manisha Tari Other [facility] Other 08-13-2023 14:00-0500 Body weight 138.34 kg LABORATORY TECHNOLOGIST Manisha Tari Work Phone: [facility] 08-13-2023 14:00-0500 Diastolic blood pressure 80 mm[Hg] Manisha Tari Other [facility] 08-13-2023 14:00-0500 SaO2% (BldA) [Mass fraction] 98 % Manisha Tari Other [facility] Other 08-13-2023 14:00-0500 Systolic blood pressure 114 mm[Hg] Manisha Keaner Other [facility] 07-15-2023 07:45-0500 Body height 162.56 cm Celio Mullins Other [facility] 07-15-2023 07:45-0500 Body mass index (BMI) [Ratio] 52.98 kg/m2 Celio Mullins Other [facility] Other 07-15-2023 07:45-0500 Body weight 140.03 kg Celio Mullins Other [facility] Other 07-15-2023 07:45-0500 Body weight 140.02 kg ROSITA Marc Work Phone: [facility] 07-15-2023 07:45-0500 Diastolic blood pressure 66 mm[Hg] Celio Mullins Other [facility] 07-15-2023 07:45-0500 Respiratory rate 18 /min Celio Mullins Other [facility] Other 07-15-2023 07:45-0500 SaO2% (BldA) [Mass fraction] 98 % Celio Mullins Other [facility] Other 07-15-2023 07:45-0500 Systolic blood pressure 112 mm[Hg] Celio Mullins Other [facility] 07-07-2023 11:15-0500 Body height 162.56 cm Michelle Ernandez Other [facility] 07-07-2023 11:15-0500 Body mass index (BMI) [Ratio] 52.69 kg/m2 Michelle Ernandez Other [facility] Other 07-07-2023 11:15-0500 Body temperature 98 [degF] Michelle Ernandez Other [facility] Other 07-07-2023 11:15-0500 Body weight 139.26 kg Michelle Ernandez Other [facility] Other 07-07-2023 11:15-0500 Body weight 139.25 kg ROSITA Marc Work Phone: [facility] 07-07-2023 11:15-0500 Respiratory rate 20 /min Michelle Oma Other [facility] Other 07-07-2023 11:15-0500 SaO2% (BldA) [Mass fraction] 98 % Michelle Oma Other [facility] Other 06-29-2023 10:20-0500 Body height 162.56 cm Michelle Oma Other [facility] Other 06-29-2023 10:20-0500 Body mass index (BMI) [Ratio] 53.03 kg/m2 Michelle Oma Other [facility] Other 06-29-2023 10:20-0500 Body temperature 99.7 [degF] Michelle Oma Other [facility] Other 06-29-2023 10:20-0500 Body weight 140.16 kg Michelle Oma Other [facility] Other 06-29-2023 10:20-0500 Respiratory rate 19 /min Michelle Oma Other [facility] Other 06-29-2023 10:20-0500 SaO2% (BldA) [Mass fraction] 98 % Michelle Oma Other [facility] Other 06-11-2023 15:30-0400 Body height 162.56 cm Manisha Marc Other [facility] Other 06-11-2023 15:30-0400 Body mass index (BMI) [Ratio] 53.79 kg/m2 Manisha Tari Other [facility] Other 06-11-2023 15:30-0400 Body weight 142.16 kg Manisha Tari Other [facility] Other 06-11-2023 15:30-0400 Diastolic blood pressure 62 mm[Hg] Manisha Tari Other [facility] Other 06-11-2023 15:30-0400 SaO2% (BldA) [Mass fraction] 99 % Manisha Tari Other [facility] Other 06-11-2023 15:30-0400 Systolic blood pressure 126 mm[Hg] Manisha Tari Other [facility] Other 05-06-2023 13:40-0400 Body height 162.56 cm Casandra Hassan Other [facility] Other 05-06-2023 13:40-0400 Body mass index (BMI) [Ratio] 53.65 kg/m2 Casandra Hassan Other [facility] Other 05-06-2023 13:40-0400 Body temperature 98.4 [degF] Casandra Hassan Other [facility] Other 05-06-2023 13:40-0400 Body weight 141.8 kg Casandra Hassan Other [facility] Other 05-06-2023 13:40-0400 Diastolic blood pressure 81 mm[Hg] Casandra Sonya Other [facility] Other 05-06-2023 13:40-0400 Respiratory rate 18 /min Casandra Tesfayeley Other [facility] Other 05-06-2023 13:40-0400 SaO2% (BldA) [Mass fraction] 95 % Casandra Tesfayeley Other [facility] Other 05-06-2023 13:40-0400 Systolic blood pressure 134 mm[Hg] Casandra Tesfayeley Other [facility] Other 04-30-2023 08:30-0400 Body height 162.56 cm Manisha Marc Other [facility] Other 04-30-2023 08:30-0400 Body mass index (BMI) [Ratio] 53.86 kg/m2 Manisha Marc Other [facility] Other 04-30-2023 08:30-0400 Body weight 142.34 kg Manisha Marc Other [facility] Other 04-30-2023 08:30-0400 Diastolic blood pressure 82 mm[Hg] Manisha Marc Other [facility] Other 04-30-2023 08:30-0400 SaO2% (BldA) [Mass fraction] 100 % Manisha Marc Other [facility] Other 04-30-2023 08:30-0400 Systolic blood pressure 120 mm[Hg] Manisha Marc Other [facility] Other 04-29-2023 07:00-0400 Body height 162.56 cm Nely Inaikat Other [facility] Other 04-29-2023 07:00-0400 Body mass index (BMI) [Ratio] 54.41 kg/m2 Nely Inaikat Other [facility] Other 04-29-2023 07:00-0400 Body weight 143.79 kg Nely Inaikat Other [facility] Other 03-25-2023 13:45-0400 Body height 162.56 cm Celio ProBueno Other [facility] Other 03-25-2023 13:45-0400 Body mass index (BMI) [Ratio] 55.45 kg/m2 Celio ProBueno Other [facility] Other 03-25-2023 13:45-0400 Body weight 146.56 kg Celio ProBueno Other [facility] Other 03-25-2023 13:45-0400 Diastolic blood pressure 57 mm[Hg] Celio Mullins Other [facility] Other 03-25-2023 13:45-0400 Respiratory rate 18 /min Celio ProBueno Other [facility] Other 03-25-2023 13:45-0400 SaO2% (BldA) [Mass fraction] 97 % Celio ProBueno Other [facility] Other 03-25-2023 13:45-0400 Systolic blood pressure 106 mm[Hg] Celio ProBueno Other [facility] Other 02-11-2023 12:15-0400 Body height 163.83 cm Casandra Tesfayeley Other [facility] Other 02-11-2023 12:15-0400 Body mass index (BMI) [Ratio] 54.88 kg/m2 Casandra Sonya Other [facility] Other 02-11-2023 12:15-0400 Body temperature 98 [degF] Casandra Sonya Other [facility] Other 02-11-2023 12:15-0400 Body weight 147.33 kg Casandra Sonya Other [facility] Other 02-11-2023 12:15-0400 Diastolic blood pressure 85 mm[Hg] Casandramila Hassan Other [facility] Other 02-11-2023 12:15-0400 Respiratory rate 18 /min Casandra Sonya Other [facility] Other 02-11-2023 12:15-0400 SaO2% (BldA) [Mass fraction] 98 % Casandra Sonya Other [facility] Other 02-11-2023 12:15-0400 Systolic blood pressure 128 mm[Hg] Casandra Hassan Other [facility] Other 07-13-2022 11:15-0500 Body height 163.83 cm Michelle Ernandez Other [facility] Other 07-13-2022 11:15-0500 Body mass index (BMI) [Ratio] 51.54 kg/m2 Michelle Ernandez Other [facility] Other 07-13-2022 11:15-0500 Body temperature 96.6 [degF] Michelle Oma Other [facility] Other 07-13-2022 11:15-0500 Body weight 138.35 kg Michelle Oma Other [facility] Other 07-13-2022 11:15-0500 Respiratory rate 18 /min Michelle Oma Other [facility] Other 07-13-2022 11:15-0500 SaO2% (BldA) [Mass fraction] 96 % Michelle Oma Other [facility] Other 07-06-2021 13:00-0500 Body height 163.83 cm Michelle Oma Other [facility] Other 07-06-2021 13:00-0500 Body mass index (BMI) [Ratio] 49 kg/m2 Michelle Oma Other [facility] Other 07-06-2021 13:00-0500 Body temperature 97.5 [degF] Michelle Oma Other [facility] Other 07-06-2021 13:00-0500 Body weight 131.54 kg Michelle Oma Other [facility] Other 07-06-2021 13:00-0500 SaO2% (BldA) [Mass fraction] 96 % Michelle Oma Other [facility] Other 06-17-2021 11:00-0400 Body height 163.83 cm Michelle Oma Other [facility] Other 06-17-2021 11:00-0400 Body mass index (BMI) [Ratio] 49.68 kg/m2 Michelle Haynesmond Other [facility] Other 06-17-2021 11:00-0400 Body temperature 98.3 [degF] Michelle Oma Other [facility] Other 06-17-2021 11:00-0400 Body weight 133.36 kg Michelle Haynesmond Other [facility] Other 06-17-2021 11:00-0400 Respiratory rate 18 /min Michelle Ernandez Other [facility] Other 06-17-2021 11:00-0400 SaO2% (BldA) [Mass fraction] 96 % Michelle Ernandez Other [facility] Other 05-31-2021 13:50-0400 Body height 163.83 cm Michelle Ernandez Other [facility] Other 05-31-2021 13:50-0400 Body mass index (BMI) [Ratio] 50.36 kg/m2 Michelle Haynesmond Other [facility] Other 05-31-2021 13:50-0400 Body temperature 97.8 [degF] Michelle Oma Other [facility] Other 05-31-2021 13:50-0400 Body weight 135.17 kg Michelle Oma Other [facility] Other 05-31-2021 13:50-0400 Diastolic blood pressure 90 mm[Hg] Michelle Ernandez Other [facility] Other 05-31-2021 13:50-0400 Respiratory rate 18 /min Michelle Ernadnez Other [facility] Other 05-31-2021 13:50-0400 SaO2% (BldA) [Mass fraction] 98 % Michelle Ernandez Other [facility] Other 05-31-2021 13:50-0400 Systolic blood pressure 150 mm[Hg] Michelle Ernandez Other [facility] Other Encounters Encounter Date Encounter Type Care Provider Facility Start: 01-01-2024 ambulatory Edward Richey acility:[facility] Start: 01-01-2024 Registered Recurring ROSITA Marc Work Phone: [facility] Start: 11-26-2023 End: 11-26-2023 ambulatory ROSITA Marc Work Phone: [facility] Work Phone: Start: 11-26-2023 End: 11-26-2023 Patient encounter procedure ROSITA Marc Work Phone: [facility] Work Phone: Start: 11-03-2023 End: 11-03-2023 ambulatory ROSITA Marc Work Phone: [facility] Work Phone: Start: 11-03-2023 End: 11-03-2023 Patient encounter procedure ROSITA Marc Work Phone: [facility] Work Phone: Start: 11-03-2023 End: 11-03-2023 ambulatory TOBIAS OSCAR Not Available Start: 10-30-2023 Non-patient / Non-visit LABORATORY TECHNOLOGISTJosé Miguel Marc Work Phone: [facility] Work Phone: Start: 10-08-2023 End: 10-08-2023 Patient encounter procedure LABORATORY TECHNOLOGISTJosé Miguel Marc Work Phone: [facility] [place] Work Phone: Start: 10-08-2023 End: 10-08-2023 ambulatory ROSITA Marc Work Phone: [facility] Work Phone: Start: 10-06-2023 End: 10-07-2023 ambulatory Bud Combs MD Facility:[facility] Start: 10-06-2023 Non-patient / Non-visit ROSITA Marc Work Phone: [facility] Work Phone: Start: 10-01-2023 End: 10-01-2023 Patient encounter procedure ROSITA Marc Work Phone: [facility] Work Phone: Start: 10-01-2023 End: 10-01-2023 ambulatory ROSITA Marc Work Phone: [facility] Work Phone: Start: 09-10-2023 Registered Recurring ROSITA Marc Work Phone: [facility] Start: 09-08-2023 End: 09-09-2023 ambulatory Bud Combs MD Facility: [place] Start: 09-03-2023 End: 09-03-2023 Patient encounter procedure ROSITA Marc Work Phone: [facility]- Start: 08-19-2023 IBT FOR OBESITY GROU P 2-10 30M Nely Cruz [facility] Start: 08-19-2023 End: 08-19-2023 ambulatory Manisha Marc [facility] Other Start: 08-19-2023 Registered Recurring LABORATORY TECHNOLOGIST Layla Marc Work Phone: [facility] Work Phone: Start: 08-19-2023 End: 08-19-2023 Patient encounter procedure LABORATORY TECHNOLOGISTJosé Miguel Marc Work Phone: [facility] Work Phone: Start: 08-14-2023 Registered Recurring LABORATORY TECHNOLOGISTJosé Miguel Marc Work Phone: [facility] Start: 08-13-2023 End: 08-13-2023 ambulatory Manisha Marc Other [facility] Other Start: 08-13-2023 Office outpatient visit 15 minutes Manisha Marc [facility] Start: 08-13-2023 End: 08-13-2023 Patient encounter procedure ROSITA Marc Work Phone: [facility] Work Phone: Start: 07-24-2023 End: 07-24-2023 ambulatory MELA ANDERSON Not Available Start: 07-21-2023 End: 07-22-2023 ambulatory Bud Combs MD Facility:[facility] Start: 07-19-2023 End: 07-19-2023 ambulatory ROSITA Marc Work Phone: [facility] Work Phone: Start: 07-19-2023 End: 07-19-2023 Patient encounter procedure ROSITA Marc Work Phone: [facility]-[employer] [facility] Start: 07-15-2023 End: 07-15-2023 ambulatory Celio Mullins Other [facility] Other Start: 07-15-2023 Follow-up encounter Celio Mullins [facility] Start: 07-15-2023 End: 07-15-2023 Patient encounter procedure ROSITA Marc Work Phone: [facility] Work Phone: Start: 07-07-2023 End: 07-07-2023 ambulatory Michelle Ernandez Other [facility] Other Start: 07-07-2023 Office outpatient visit 15 minutes Michelle Oma [facility] Start: 07-07-2023 End: 07-07-2023 Patient encounter procedure LABORATORY TECHNOLOGISTJosé Miguel Marc Work Phone: [facility] Work Phone: Start: 07-03-2023 Registered Recurring ROSITA Marc Work Phone: [facility] Start: 07-03-2023 End: 07-03-2023 Patient encounter procedure ROSITA Marc Work Phone: [facility] [place] Work Phone: Start: 07-03-2023 End: 07-03-2023 ambulatory ROSITA Marc Work Phone: [facility] Work Phone: Start: 07-01-2023 End: 07-01-2023 Patient encounter procedure ROSITA Marc Work Phone: [facility] [place] Work Phone: Start: 07-01-2023 End: 07-01-2023 ambulatory Manisha Marc Facility:[facility] Start: 06-29-2023 End: 06-29-2023 ambulatory Michelle Ernandez Other [facility] Other Start: 06-29-2023 Office outpatient visit 15 minutes Michelle Haynesmond [facility] Start: 06-17-2023 Registered Recurring ROSITA Marc Work Phone: [facility] Work Phone: Start: 06-11-2023 End: 06-11-2023 ambulatory Manisha Marc Other [facility] Other Start: 06-11-2023 Office outpatient visit 25 minutes Manisha Marc [facility] Start: 05-06-2023 End: 05-06-2023 ambulatory Casandra Hassan Other [facility] Other Start: 05-06-2023 Office outpatient visit 10 minutes Casandra Hassan [facility] Start: 05-01-2023 End: 05-01-2023 ambulatory Manisha Marc Other [facility] Other Start: 05-01-2023 Telephone encounter Manisha Rico her [facility] Start: 04-30-2023 End: 04-30-2023 ambulatory Manisha Marc Other [facility] Other Start: 04-30-2023 Encounter for genera l adult medical examination without abnormal findings Manisha Marc [facility] Start: 04-30-2023 Periodic preventive med est patient 18-39 yrs Manisha Marc [facility] Start: 04-29-2023 ([facility]) N Initial Provider Nely Cruz [facility] Start: 04-29-2023 End: 04-29-2023 ambulatory Nely Cruz Other [facility] Other Start: 03-25-2023 End: 03-25-2023 ambulatory Celio Mullins Other [facility] Other Start: 03-25-2023 Nutrition therapy Celio Mullins [facility] Start: 03-25-2023 Telephone encounter Celio Owens [facility] Start: 03-14-2023 End: 03-14-2023 ambulatory Nely Cruz Other [facility] Other Start: 03-14-2023 Telephone encounter Nely Cruz [facility] Start: 02-11-2023 End: 02-11-2023 ambulatory Casandra Hassan Other [facility] Other Start: 02-11-2023 Office outpatient visit 15 minutes Casandra Hassan [facility] Start: 12-31-2022 End: 01-01-[address] TOBIAS OSCAR . Facility:[facility] Start: 11-26-2022 End: 11-27-[address] TOBIAS OSCAR . Facility:[facility] Start: 11-08-2022 End: 11-09-[address] THADDEUS ROD Facility:[facility] Start: 10-28-2022 End: 10-28-[address] TOBIAS OSCAR . Facility:[facility] Start: 07-13-2022 End: 07-13-2022 ambulatory Michelle Ernandez Other [facility] Other Start: 07-13-2022 Office outpatient visit 15 minutes Michelle Ernandez [facility] Start: 03-07-2022 End: 03-08-[address] THADDEUS ROD Facility:[facility] Start: 01-25-2022 Encounter for genera l adult medical examination without abnormal findings DR THADDEUS ROD [facility] Start: 01-21-2022 End: 01-22-[address] THADDEUS ROD Facility:[facility] Start: 01-21-2022 End: 01-22-2022 Encounter for general adult medical examination without abnormal findings DR THADDEUS ROD Facility:[facility] Start: 07-06-2021 End: 07-06-2021 ambulatory Michelle Oma Other [facility] Other Start: 07-06-2021 Office outpatient visit 15 minutes Michelle Oma [facility] Start: 06-17-2021 Office outpatient visit 15 minutes Michelle Oma [facility] Start: 05-31-2021 Office outpatient visit 25 minutes Michelle Oma [facility] Start: 08-27-2018 End: 08-27-2018 ambulatory BRENT KINNEY Facility:[facility] Procedures Date Procedure Procedure Detail Performing Clinician Start: 10-08-2023 MRI of head LABORATORY TECHNOLOGIST Heaven Marc Work Phone: Start: 05-31-2021 Piperacillin/tazobactam Mihcelle Oma Other Start: 08-27-2018 extraction, erupted tooth or exposed root (elevation and/or forceps removal) BRENT MENDOZACONIS Start: 08-27-2018 removal of impacted tooth - soft tissue BRENT MENDOZACONTARAH Start: 08-27-2018 Urine test visual color cmprsn meths BRENT MENDOZACONTARAH Plan of Treatment Date Care Activity Detail Author Comprehensive metabo lic 2000 panel - Serum or Plasma [facility] enter Holter monitor study [facility] Immunizations Immunization Date Immunization Notes Care Provider Lillie rogers 03-03-2021 Do not use COVID-19 Pfizer 2 dose Manisha Marc Other [facility] 02-10-2021 Do not use COVID-19 Pfizer 2 dose Manisha Marc Other [facility] 08-03-2018 Toradol per 15 mg Michelle Dym ond Other [facility] Other Payers Date Payer Category Payer Self-pay [id number] 2022 Self-pay [id number] 2022 Private Health Insurance 1991 Unknown [id number] 1991 Unknown [id number] 1991 Unknown [id number] 1991 Unknown [id number] 1991 Unknown [id number] 1991 Unknown [id number] 1991 Unknown [id number]. 593 1991 Unknown [id number] 2.16.840.1.364891.3.579.2. 196 1991 Unknown [id number] 2.16.840.1.561619.3.579.2. 196 1991 Unknown [id number] 2.16.840.1.107980.3.579.2. 196 1991 Unknown [id number] 2.16.840.1.641139.3.579.2. 1259 1991 Unknown [id number] 2.16.840.1.908700.3.579.2. 1259 1958 Medicaid [id number] 1959 Unknown [id number] [facility] [id number] Unknown [id number] 2.16.840.1.972603.3.579.2. 531 Unknown [id number] 2.16.840.1.537867.3.579.2. 531 Unknown [id number] 2.16.840.1.885718.3.579.2. 531 Unknown [id number] 2.16.840.1.426174.3.579.2. 531 Unknown [id number] 2.16.840.1.357455.3.579.2. 531 Unknown [id number] 2.16.840.1.941105.3.579.2. 531 Unknown [id number] 2.16.840.1.976819.3.579.2. 531 Social History Date Type Detail Facility Unknown if ever smoked [facility] Other Sex Assigned At Sex Assigned At Bir th [facility] Other Start: 12-07-2021 End: 11-26-2023 Tobacco smoking status NDIS Never smoked tobacco (finding) [facility] Start: 1990 Sex Assigned At Female F [facility] Clinical Notes 05-31-2021 to 08-19-2023 Note [...] method for meal planning ; grocery shortcuts [employer] Other 12-27-2023 Evaluation note* Encounter Date Diagnosis [...] You have been given relevant education handouts. [facility] Other 11-28-2023 Evaluation note* Encounter Date Diagnosis [...] voice recognition software. Please excuse errors in mds manager. Jun, Dietary surveillance and counseling (ICD-10 - [...] metformin 1000 mg total daily, managed by [facility] Jun, Asthma (ICD-10 - J45.909) Jun, Migraine (ICD-10 - G43.909) Jun, Primary hypertension (ICD-10 - I10) Currently on pharmacotherapy Potential for overtreatment given lightheadedness Jun, Other An additional 9 minutes was spent counseling the patient on behavior modification including proper nutrition and physical activity. [employer] Other 11-20-2023 Evaluation note* Encounter Date Diagnosis [...] until you feel better. You may take [id number] Imodium for diarrhea as needed. Avoid dairy foods as well as greasy fried foods. Follow-up with your physician if no improvement in 2 to 3 days. May return to work on Jun, Diarrhea, unspecified type (ICD-10 - R19.7) Diarrhea: adult home care material was printed [facility] Other 11-12-2023 Evaluation note* Encounter Date Diagnosis [...] to 3-day Jun, Bronchitis (ICD-10 - J40) [facility] Other 10-25-2023 Evaluation note* Encounter Date Diagnosis Assessment Notes Treatment Notes Treatment Clinical Notes May, Degenerative lumbar disc (ICD-10 - M51.36) L4-5 Pt would like a referral to pain management regarding her chronic back pain. Her last x-ray of the lumbar spine was completed 10/2022 at [facility]--reviewed and in scanned documents. Referral placed. [...] disorder (ICD-10 - F31.81) Referral placed to [facility] for medication mangement. [employer] Other 09-19-2023 Evaluation note* Encounter Date Diagnosis Assessment Notes Treatment Notes Treatment Clinical Notes Apr, Exposure to head lice (ICD-10 - Z20.7) Discussed with patient exam is without any signs of current lice infection. May return to work tomorrow. Patient completed next treatment yesterday. Patient verbalized understanding. [facility] Other 09-14-2023 Evaluation note* Encounter Date Diagnosis Assessment Notes Treatment Notes Treatment Clinical Notes Apr, Primary hypertension (ICD-10 - I10) [facility] Other 09-13-2023 Evaluation note* Encounter Date Diagnosis [...] R73.01) Will obtain records from [facility] for most recent labs. Patient is [...] Low back pain, unspecified (ICD-10 - M54.50) [employer] Other 09-12-2023 Evaluation note* Encounter Date Diagnosis [...] 2) Aim for < 45 g carb/meal [employer] Other 08-08-2023 Evaluation note* Encounter Date Diagnosis [...] voice recognition software. Please excuse errors in mds manager. Mar, Dietary surveillance and counseling (ICD-10 - [...] as sweet tea, replace ice cream with Burmese yogurt, use protein shake in the a.m. [...] with the patient, and documenting clinical information. [employer] Other 06-27-2023 Evaluation note* Encounter Date Diagnosis [...] 7 days, sooner if significantly worsening symptoms. [facility] Other 11-26-2022 Evaluation note* Encounter Date Diagnosis [...] 3 days. Off work today and tomorrow [employer] Other 11-19-2021 Evaluation note* Encounter Date Diagnosis [...] Patient care instructions given in writting by [facility] Care At Home document. [employer] Other 10-31-2021 Evaluation note* Encounter Date Diagnosis [...] Patient care instructions given in writting by [facility] Care At Home document. [facility] [employer] Other 10-14-2021 Evaluation note* Encounter Date Diagnosis Assessment Notes Treatment Notes Treatment Clinical Notes May, Dysuria (ICD-10 - R30.0) May, Urinary tract infection, site not specified (ICD-10 - N39.0) May, Hematuria, unspecified (ICD-10 - R31.9) [employer] [facility] [employer] Other evaluation [facility]No [facility] Other evalubypzd noteNo assessment information available [facility] Work Phone: evaluation note* Diagnosis Onset Date Resolution Status Dietary surveillance and counseling acute Exercise counseling acute Food insecurity acute PCOS (polycystic ovarian syndrome) acute Prediabetes acute Severe obesity (BMI >= 40) a [facility] Work Phone: Evaluation note* Diagnosis Onset Date Resolution Status Dietary surveillance and counseling acute Exercise counseling acute Food insecurity acute PCOS (polycystic ovarian syndrome) acute Prediabetes acute Severe obesity (BMI >= 40) a cute Lightheadedness acute Menorrhagia acute Palpitations acute [facility] Work Phone: evaluation note* Diagnosis Onset Date Resolution Status Dietary surveillance and counseling acute Exercise counseling acute Food insecurity acute PCOS (polycystic ovarian syndrome) acute Prediabetes acute Severe obesity (BMI >= 40) a cute Lightheadedness acute Menorrhagia acute Palpitations acute Dietary surveillance and counseling acute Exercise counseling acute Severe obesity (BMI >= 40) a [facility] Work Phone: Evaluation note* Diagnosis Onset Date Resolution Status Lightheadedness acute Menorrhagia acute Palpitations acute Dietary surveillance and counseling acute Exercise counseling acute Severe obesity (BMI >= 40) a [facility] Work Phone: history general Narrative - Reported* [...] History Hospitalized for blood l oss 2010 [facility] Other history general Narrative - Reported* Type [...] History Hospitalized for blood l oss 2010 [facility] Other history general Narrative - Reported* Type [...] History Hospitalized for blood l oss 2010 [facility] Other history general Narrative - Reported* Type [...] History Hospitalized for blood l oss 2010 [facility] Other history general Narrative - Reported* Type [...] History Hospitalized for blood l oss 2010 [facility] Other Hisjhuo general Narrative - Reported* Type Description Date [...] History Hospitalized for blood l oss 2010 [facility] Other Hisazmx general Narrative - Reported* Type Description Date [...] History Hospitalized for blood l oss 2010 [facility] Other Reason for referral (narrative)* Reason *FU 06/20 would li ke a referral to pscyiatrist -- was recently diagnosed with bipolar and would like medication management. Diagnosis 1 Bipolar 2 disorder ( F31.81) Referral Organization [facility] Damion tsang Referring Provider First Name Manisha Referring Provider Last Name Tari Referring Provider Specialty Nurse Pract farnazr Referred Organization [facility] Enedelia Referred Address [address],[place], [place],[address] Referred Provider Specialty Psychiatry Referral Priority Routine General Notes Paola Henderson 01:25:30 PM >received today, not sure if [facility] does medication management, waiting for notes to be locked Paola Henderson 06/13/2023 10:34:39 AM >notes locked, referral faxed Clinical Notes p: [phone] f: [id number] [place] [facility] Reason *FU 06/20 would li ke a referral to pain management for other options for pain control for back pain Diagnosis 1 Degenerative lumbar disc (M51.36) Referral Organization [facility] sharan Referring Provider First Name Manisha Referring Provider Last Name Tari Referring Provider Specialty Nurse Noble orozco Referred Organization [facility] Referred Provider Yrn Parsons Referred Address [address], [place],[address] Referred Provider Specialty Pain Medicin e Referral Priority Routine General Notes Paola Henderson 01:21:23 PM >received today, waiting for notes to be locked Paola Henderson 06/13/2023 10:25:26 AM >notes locked, referral faxed Clinical Notes f: [phone] [facility] Other Summary Purpose Family History No Family [...] Date/ Time Advance Directives No April 3:36pm Advance Directive Response Recorded Date/ Time Advance Directives No April 4:36pm Chief Complaint and Reason for Visit Chief Complaint Obesity E66.01 E28.2 I10 E66.01 E28.2 I10 Chief Complaint E66.01 E28.2 I10 E66.01 E28.2 I10 exercise Obesity Chief Complaint E66.01 E28.2 I10 Needs To Be Check For The Flu Wmn exercise Low Bp-Med Discussion Obesity 6 Month Follow Up Reason for Visit Dietary surveillance and counseling Exercise counseling Food insecurity PCOS (polycystic ovarian syndrome) Prediabetes Severe obesity (BMI >= 40) Chief Complaint Wmn exercise Low Bp-Med Discussion Obesity 6 Month Follow Up g40.909 Reason for Visit Dietary surveillance and counseling Exercise counseling Food insecurity PCOS (polycystic ovarian syndrome) Prediabetes Severe obesity (BMI >= 40) Chief Complaint Low Bp-Med Discussio n Obesity 6 Month Follow Up g40.909 heart palpitations Reason for Visit Dietary surveillance and counseling Exercise counseling Food insecurity PCOS (polycystic ovarian syndrome) Prediabetes Severe obesity (BMI >= 40) Lightheadedness Menorrhagia Palpitations Chief Complaint 6 Month Follow Up g40.909 heart palpitations Reason for Visit Dietary surveillance and counseling Exercise counseling Food insecurity PCOS (polycystic ovarian syndrome) Prediabetes Severe obesity (BMI >= 40) Lightheadedness Menorrhagia Palpitations Dietary surveillance and counseling Exercise counseling Severe obesity (BMI >= 40) Chief Complaint heart palpitations Reason for Visit Lightheadedness Menorrhagia Palpitations Dietary surveillance and counseling Exercise counseling Severe obesity (BMI >= 40) Additional Source Comments INFORMATION SOURCE (unrecogn ized section and content) DATE CREATED AUTHOR 08/27/2021 [employer] DATE CREATED AUTHOR AUTHOR'S ORGANIZ ATION 01/01/2023 [facility] DATE CREATED AUTHOR AUTHOR'S ORGANIZ ATION 10/17/2023 [facility] DATE CREATED AUTHOR AUTHOR'S ORGANIZ ATION 11/03/2023 [facility] DATE CREATED AUTHOR AUTHOR'S ORGANIZ ATION 01/17/2024 [facility] REASON FOR VISIT (unrecogniz ed section and [...] Member Role Status Dates Manisha Marc APRN BENEFITS CLERK-C Primary Care Provider Active Team Status: Active Member Role Status Dates Manisha Marc APRN BENEFITS CLERK-C Primary Care Provider, Attending Provider Active Team Status: Inactive Member Role Status Dates Manisha Marc APRN BENEFITS CLERK-C Primary Care Provider Active Celio Mullins DO Attending Provider Active Team Status: Inactive Member Role Status Dates Manisha Marc APRN BENEFITS CLERK-C Primary Care Provider Active Clinton Frazier MD Attending Provider Active Team Status: Inactive Member Role Status Dates Manisha Marc APRN BENEFITS CLERK-C Primary Care Provider Active Start: July 032022 End: July 03, 2023 Celio Mullins DO Attending Provider Active St art: July 03, 2023 End: July 03, 2023 Team Status: Active Member Role Status Dates Manisha Marc APRN BENEFITS CLERK-C Primary Care Provider Active Start: July 032022 Edward Gilmore MD Attending Provider Active Start: July 03, 2023 Team Status: Inactive Member Role Status Dates Michelle Ernandez BENEFITS CLERK-C Attending Provider Active S tart: July 07, 2023 End: July 07, 2023 Team Status: Inactive Member Role Status Dates Celio Mullins DO Attending Provider Active St art: July 15, 2023 End: July 15, 2023 Team Status: Inactive Member Role Status Dates Manisha Marc APRN BENEFITS CLERK-C Primary Care Provider Active Start: July End: July 19, 2023 Clinton Frazier MD Attending Provider Active Start: July 19, 2023 End: July 19, 2023 Team Status: Inactive Member Role Status Dates Manisha Marc APRN BENEFITS CLERK-C Attending Provider Act rafal Start: August 13, 2023 End: August 13, 2023 Team Status: Inactive Member Role Status Dates Nely Cage [facility] Attending Provider Active Start: August 19, 2023 End: August 19, 2023 Team Status: Active Member Role Status Dates Manisha Marc APRN BENEFITS CLERK-C Primary Care Provider, Attending Provider Active Start: August 19, 2023 Team Status: Inactive Member Role Status Dates Manisha Marc APRN BENEFITS CLERK-C Attending Provider Act rafal Start: September 03, 2023 End: September 03, 2023 Team Status: Inactive Member Role Status Dates Manisha Marc APRN BENEFITS CLERK-C Primary Care Provider Active Start: October 012023 End: October 01, 2023 Celio Mullins DO Attending Provider Active St art: October 01, 2023 End: October 01, 2023 Team Status: Active Member Role Status Dates Manisha Marc APRN BENEFITS CLERK-C Primary Care Provider Active Start: August 142022 Edward Gilmore MD Attending Provider Active Start: August 14, 2023 Team Status: Active Member Role Status Dates Manisha Mrac APRN BENEFITS CLERK-C Primary Care Provider, Attending Provider Active Start: October 06, 2023 Team Status: Inactive Member Role Status Dates Manisha Marc APRN BENEFITS CLERK-C Primary Care Provider Active Start: October 082023 End: October 08, 2023 Akil Cox DO Attending Provider Active Start: October 08, 2023 End: October 08, 2023 Team Status: Active Member Role Status Dates Manisha Marc APRN BENEFITS CLERK-C Primary Care Provider, Attending Provider Active Start: October 30, 2023 Team Status: Inactive Member Role Status Dates Manisha Marc APRN BENEFITS CLERK-C Primary Care Provider, Attending Provider Active Start: November 03, 2023 End: November 03, 2023 Team Status: Active Member Role Status Dates Manisha Marc APRN BENEFITS CLERK-C Primary Care Provider Active Start: August Edward Gilmore MD Attending Provider Active Start: September 10, 2023 Team Status: Inactive Member Role Status Dates Manisha Marc APRN BENEFITS CLERK-C Primary Care Provider Active Start: November 26, 2023 End: November 26, 2023 Celio Mullins DO Attending Provider Active St art: November 26, 2023 End: November 26, 2023 Team Status: Active Member Role Status Dates Manisha Marc APRN BENEFITS CLERK-C Primary Care Provider Active Start: January 01, 2024 Edward Gilmore MD Attending Provider Active Start: January 01, 2024 Goals (unrecognized section and content) Goals may [...] BE BASED ON THE PRIMARY CLINICAL RECORDS. [facility] [email or web address], [facility]. provides no warranty or guarantee of the accuracy or completeness of information in this document.
--- NOTE | 2024-01-19 14:59 | P.CN_ITS ---
Consult Note: HPI Data of Consult Patient: known to practice within the last 3 years Consult date: 01/19/24 Requesting Physician: Bud oCmbs MD Primary Care Provider: CHRIS LOPEZ Consult Narrative Reason for consult: bilateral hip pain Narrative: 33yof who presents for in office injection. notes persistence of pain over bilateral hip region, tenderness over bilateral greater trochanter. would like to proceed with injection. cc:: CC: Bud Combs MD Review of Systems ROS Status of ROS 10 or more systems reviewed and unremark able except as noted in history and below [facility] Medical History Herpes genitalia ?A60.00 - Herpesviral infection of urogenital system, unspecified (ICD-10) Back pain ?M54.9 - Dorsalgia, unspecified (ICD-10) Arthritis ?M19.90 - Unspecified osteoarthritis, unspecified site (ICD-10) Anemia ?D64.9 - Anemia, unspecified (ICD-10) Depression ?F32.A - Depression, unspecified (ICD-10) Anxiety ?F41.9 - Anxiety disorder, unspecified (ICD-10) COVID-19 ?U07.1 - COVID-19 (ICD-10) Asthma ?J45.909 - Unspecified asthma, uncomplicated (ICD-10) Seizures ?R56.9 - Unspecified convulsions (ICD-10) GERD (gastroesophageal reflux disease) ?K21.9 - Gastro-esophageal reflux disease without esophagitis (ICD-10) Sleep apnea ?G47.30 - Sleep apnea, unspecified (ICD-10) Palpitations ?R00.2 - Palpitations (ICD-10) Prediabetes ?R73.03 - Prediabetes (ICD-10) Hypertension ?I10 - Essential (primary) hypertension (ICD-10) PCOS (polycystic ovarian syndrome) ?E28.2 - Polycystic ovarian syndrome (ICD-10) Abnormal uterine bleeding (AUB) ?N93.9 - Abnormal uterine and vaginal bleeding, unspecified (ICD-10) Menorrhagia ?N92.0 - Excessive and frequent menstruation with regular cycle (ICD-10) Surgical History History of laparoscopy ?Z98.890 - Other specified postprocedural states (ICD-10) History of colposcopy ?Z98.890 - Other specified postprocedural states (ICD-10) History of wisdom tooth extraction ?K08.409 - Partial loss of teeth, unspecified cause, unspecified class (ICD- 10) History of cholecystectomy ?Z90.49 - Acquired absence of other specified parts of digestive tract (ICD- 10) Family History Other Family history of heart disease Family history of stroke Social History Within the past year, how often did you have a drink containing alcohol: monthly or less Smoking status: Never smoker 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 Highest level of school completed/degree received: Associate degree: occupational, technical, vocational program Meds Home Medications and Allergies Home Medications ?Medication ?Instructions ?Recorded ?Confirmed ?Type albuterol sulfate 90 mcg/actuation 2 inh inhalation Q6H PRN shortness 01/17/23 10/30/23 History aerosol inhaler (ProAir HFA) of breath or wheezing duloxetine 30 mg capsule,delayed 120 mg PO QDAY 01/17/23 10/30/23 History release gabapentin 300 mg capsule 300 mg PO Q12H PRN pain 01/17/23 10/30/23 History lisinopril 20 mg tablet 20 mg PO DAILY 01/17/23 10/30/23 History metformin 500 mg tablet 500 mg PO BID 01/17/23 10/30/23 History valacyclovir 1 gram tablet 1,000 mg PO BID 06/25/23 10/30/23 History coenzyme Q10 100 mg capsule (Co 200 mg PO DAILY 10/30/23 10/30/23 History Q-10) inositol 500 mg tablet 500 mg PO DAILY 10/30/23 10/30/23 History lamotrigine 25 mg tablet (Lamictal) 25 mg PO Q12H 10/30/23 10/30/23 History megestrol 20 mg tablet See Rx Instructions .Route 10/30/23 Rx .COMPLEX #10 tabs celecoxib 100 mg capsule (Celebrex) 100 mg PO BID 01/07/24 01/07/24 History cyclobenzaprine 10 mg tablet 10 mg PO TID 01/07/24 01/07/24 History Allergies Allergy/AdvReac Type Severity Reaction Status Date / Time amoxicillin Allergy Rash Verified 09/08/23 08:43 cefaclor Allergy Rash Verified 09/08/23 08:43 erythromycin base Allergy Hives Verified 09/08/23 08:43 Exam Narrative Exam Narrative: Psych-alert and oriented x 3.? Attentive and appropriate, constitutionally normal, displays normal mood and affect per situation.? There are no obvious deficits in memory, reasoning, or intellect.? Skin-no obvious rashes, bruising, erythema noted to the patient's area of pain. Extremities- extremities are warm with minimal edema and palpable pulses. Hip-tenderness to palpation over bilateral greater trochanter. Pain is elicited with internal and external rotation of the hip.? Hip provocative maneuvers are positive and consistent with the patient's normal pain.? Coordination remains intact.? Gait remains antalgic. Assessment and Plan Assessment and Plan (1) Greater trochanteric bursitis: Qualifiers: Laterality: unspecified laterality Qualified Code(s): M70.60 - Trochanteric bursitis, unspecified hip Plan 33yof who presents for in office injection. would like to proceed with bilateral troch bursa injection. we agree to proceed. Procedure: Bilateral trochanteric bursa injection Medications: Bupivacaine 0.25% 4cc, kenalog 40mg x2 I explained the details of the procedure to the patient including the risks, benefits and alternatives. We had an informed discussion and the patient verbalized understanding and signed the consent form. All questions were answered appropriately.? A time out was performed.? The skin overlying the right lateral hip was prepped with alcohol x3. A sterile syringe containing the above medication was attached to a 25 gauge, 3.5 inch needle under strict aseptic technique. The greater trochanter and point of tenderness was palpated. At this point, the needle was then advanced through the subcutaneous tissue down to os. The needle was withdrawn slightly and the contents of the syringe were gently injected without any resistance. The needle was removed and pressure was applied to the injection site to decrease the incidence of ecchymosis and hematoma formation.? A sterile bandage was applied. The same procedure was then completed on the opposite side. Post procedural instructions were given to the patient.
== END 2024-01-19 14:18 | disposition home or self-care (01) ==
LOC: PM 14:18
PROVIDERS: PCP Nurse Practitioner Family; Visit Provider Anesthesiology
DX: M70.60 Trochanteric bursitis, unspecified hip (principal)
CPT/HCPCS: 20610

== ENCOUNTER 2024-04-12 01:03 | Emergency (ER) | payer OTHER, SELFPAY ==
--- NOTE | 2024-04-12 01:06 | ED_ITS ---
HPI - Psych General Chief Complaint: Psychiatric Symptoms Stated Complaint: MENTAL ISSUES Time Seen by Provider: 04/12/24 01:06 Source: Reports patient History of Present Illness HPI Narrative: This 33-year-old female with a history of depression, anxiety is not all affective disorder who is working with a therapist from [facility] and states that she has been on Cymbalta recently but did not take it for approximately 1 week last week because of some misunderstanding and the need for a new prescription presents for evaluation of depression, anxiety and grief reaction. 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 She states that last Friday one of her patients during the night. She states that she and a coworker found him and did not do CPR so she got in trouble for not doing CPR although it was clear in her mind that he was . She states that she felt like she was dealing with that okay until the past several days when she started to feel anxious with grief and her depression increased. She states she took a Cymbalta before going to work tonight and thought that she could get through the night but she told her court supervisor that she was struggling and to give her some extra time tonight. The patient states that she started crying and tried to call the suicide hotline just so that she could talk to somebody but did not have the number so she called the police and they called EMS to her job site. She denies that she is suicidal. She has had suicide attempts in the past. She states she tried to cut her wrist in the past and also took a half a bottle of Tylenol. She denies that she has taken any extra medications tonight. This was many years ago when she was in her teens. The patient lives with her grandparents and states that her grandparents raised her. She feels comfortable with them but admits that they do not understand mental health issues. She also recently started working nights which is a new position for her. She has been at her current job since January. She also request something for pain in her right tooth #5 that is broken and decayed to the gumline. She has an appointment with a dentist at the end of next month but states that the crying that she has been doing tonight gave her a headache and aggravated her tooth. Related Data Home Medications ?Medication ?Instructions ?Recorded ?Confirmed albuterol sulfate 90 mcg/actuation 2 inh inhalation Q6H PRN shortness 01/17/23 10/30/23 aerosol inhaler (ProAir HFA) of breath or wheezing duloxetine 30 mg capsule,delayed 120 mg PO QDAY 01/17/23 10/30/23 release gabapentin 300 mg capsule 300 mg PO Q12H PRN pain 01/17/23 10/30/23 lisinopril 20 mg tablet 20 mg PO DAILY 01/17/23 10/30/23 metformin 500 mg tablet 500 mg PO BID 01/17/23 10/30/23 valacyclovir 1 gram tablet 1,000 mg PO BID 06/25/23 10/30/23 coenzyme Q10 100 mg capsule (Co 200 mg PO DAILY 10/30/23 10/30/23 Q-10) inositol 500 mg tablet 500 mg PO DAILY 10/30/23 10/30/23 lamotrigine 25 mg tablet (Lamictal) 25 mg PO Q12H 10/30/23 10/30/23 celecoxib 100 mg capsule (Celebrex) 100 mg PO BID 01/07/24 01/07/24 cyclobenzaprine 10 mg tablet 10 mg PO TID 01/07/24 01/07/24 Previous Rx's ?Medication ?Instructions ?Recorded megestrol 20 mg tablet See Rx Instructions .Route 10/30/23 .COMPLEX #10 tabs Allergies Allergy/AdvReac Type Severity Reaction Status Date / Time amoxicillin Allergy Rash Verified 04/12/24 01:27 cefaclor Allergy Rash Verified 04/12/24 01:27 erythromycin base Allergy Hives Verified 04/12/24 01:27 Review of Systems ROS Status of ROS 10 or more systems reviewed and unremark able except as noted in history and below [facility] Medical History Herpes genitalia ?A60.00 - Herpesviral infection of urogenital system, unspecified (ICD-10) Back pain ?M54.9 - Dorsalgia, unspecified (ICD-10) Arthritis ?M19.90 - Unspecified osteoarthritis, unspecified site (ICD-10) Anemia ?D64.9 - Anemia, unspecified (ICD-10) Depression ?F32.A - Depression, unspecified (ICD-10) Anxiety ?F41.9 - Anxiety disorder, unspecified (ICD-10) COVID-19 ?U07.1 - COVID-19 (ICD-10) Asthma ?J45.909 - Unspecified asthma, uncomplicated (ICD-10) Seizures ?R56.9 - Unspecified convulsions (ICD-10) GERD (gastroesophageal reflux disease) ?K21.9 - Gastro-esophageal reflux disease without esophagitis (ICD-10) Sleep apnea ?G47.30 - Sleep apnea, unspecified (ICD-10) Palpitations ?R00.2 - Palpitations (ICD-10) Prediabetes ?R73.03 - Prediabetes (ICD-10) Hypertension ?I10 - Essential (primary) hypertension (ICD-10) PCOS (polycystic ovarian syndrome) ?E28.2 - Polycystic ovarian syndrome (ICD-10) Abnormal uterine bleeding (AUB) ?N93.9 - Abnormal uterine and vaginal bleeding, unspecified (ICD-10) Menorrhagia ?N92.0 - Excessive and frequent menstruation with regular cycle (ICD-10) Surgical History History of laparoscopy ?Z98.890 - Other specified postprocedural states (ICD-10) History of colposcopy ?Z98.890 - Other specified postprocedural states (ICD-10) History of wisdom tooth extraction ?K08.409 - Partial loss of teeth, unspecified cause, unspecified class (ICD- 10) History of cholecystectomy ?Z90.49 - Acquired absence of other specified parts of digestive tract (ICD- 10) Family History Other Family history of heart disease Family history of stroke Social History Within the past year, how often did you have a drink containing alcohol: monthly or less Smoking status: Never smoker 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 Highest level of school completed/degree received: Associate degree: occupational, technical, vocational program Exam Narrative Exam Narrative: Vital signs and Nursing Notes reviewed: Patient is afebrile with a normal pulse, blood pressure is elevated at 163/89, she has not hypoxic with pulse ox of 98% on room air General: Awake, alert, oriented, pleasant overweight female, no respiratory distress HEENT: Normocephalic atraumatic, mucous membranes are moist and pink, eyes are clear, normal conjunctiva, vision is grossly intact, there is a broken and decayed tooth #5 without notable periapical abscess Chest: Lungs are clear to auscultation with good air entry, there is no wheezing rhonchi or rales appreciated no accessory muscle use, patient is speaking in complete sentences-no chest wall tenderness to palpation CVS: Regular rate and rhythm S1-S2, no murmurs rubs or gallops, pulses are brisk and equal bilaterally Extremities: Moving all extremities, no lower extremity tenderness or swelling noted, negative Homans' sign, pulses are brisk and equal bilaterally Skin: Normal in appearance without rash,pallor, petechiae or purpura Neuro: No focal deficits Constitutional Vital Signs, click to edit/add: Last Vital Signs Temp 98.4 F 04/12/24 01:10 Pulse 89 04/12/24 01:10 Resp 16 04/12/24 01:10 BP 163/89 H 04/12/24 01:10 Pulse Ox 98 04/12/24 01:10 O2 Del Method Room Air 04/12/24 01:10 Course Vital Signs Vital signs: Vital Signs Temperature 98.4 F 04/12/24 01:10 Pulse Rate 89 04/12/24 01:10 Respiratory Rate 16 04/12/24 01:10 Blood Pressure 163/89 H 04/12/24 01:10 Pulse Oximetry 98 04/12/24 01:10 Oxygen Delivery Method Room Air 04/12/24 01:10 Temperature 98.4 F 04/12/24 01:10 Pulse Rate 89 04/12/24 01:10 Respiratory Rate 16 04/12/24 01:10 Blood Pressure 163/89 H 04/12/24 01:10 Pulse Oximetry 98 04/12/24 01:10 Oxygen Delivery Method Room Air 04/12/24 01:10 MDM - Psych MDM Narrative Medical decision making narrative: This 33-year-old female with a history of anxiety, depression and bipolar type II and is being evaluated for schizoaffective disorder presents from work via EMS for evaluation of depression with anxiety. EMS was activated after the patient called the suicide hotline to talk to somebody. She denies that she is actively suicidal. In the emergency department she was very forthcoming about recent events which caused her more anxiety in which a client at her job and she found the patient with a colleague of hers. She did not think she was struggling with that until the past several days when she cannot stop thinking about it or smelling it and is grieving. EKG and medical clearance labs including CBC with differential, comprehensive metabolic profile, alcohol, aspirin and Tylenol levels and urine tox screen was ordered. Her labs are normal. Her alcohol level is normal. Aspirin and Tylenol levels are normal. Alcohol is negative. test is negative. Urine is negative for infection. The patient did request something for a toothache where she has a broken tooth in her right upper maxilla and is scheduled to see a dentist next month. Besides that she required no medications for psychiatric stabilization or other complaints. She has recently had a medication change and was off of her anxiety/depression medications for almost a week but has the medication at her home at this time. She has a mental health counselor from [facility] with whom she has been with for over a year and feels comfortable with her and plans to call her later today. She got relief from her toothache with the ibuprofen and I will give her a Rx for this to use as needed for ongoing pain until she can see her dentist. Her grandmother, with whom she lives is coming to the ED and will take her home and stay with her tonight. Lab Data Attestation: I reviewed the patient's lab results. Labs: Lab Results 04/12/24 04/12/24 Range/Units 02:00 02:05 WBC 9.9 (4.0-11.0) 10^3/uL RBC 4.73 (4.20-5.40) 10^6/uL Hgb 11.6 L (12.0-16.0) g/dL Hct 37.9 (36.0-48.0) % MCV 80.1 L (81.0-99.0) fL MCH 24.5 L (26.7-34.0) pg MCHC 30.6 (29.9-35.2) g/dL RDW 17.4 H (11.0-15.0) % Plt Count 299 (150-450) 10^3/uL MPV 10.2 (9.5-13.5) fL Neut % (Auto) 57.9 (43.0-75.0) % Lymph % (Auto) 35.5 (20.5-60.0) % [place] % (Auto) 4.7 (1.7-12.0) % Eos % (Auto) 1.0 (0.9-7.0) % Baso % (Auto) 0.6 (0.2-2.0) % Neut # (Auto) 5.7 (1.4-6.5) 10^3/uL Lymph # (Auto) 3.5 (1.2-3.8) 10^3/uL [place] # (Auto) 0.5 (0.3-0.8) 10^3/uL Eos # (Auto) 0.1 (0.0-0.7) 10^3/uL Baso # (Auto) 0.1 (0.0-0.1) 10^3/uL Abs Immat Gran (auto) 0.03 (0.00-0.03) 10^3/uL Imm/Tot Granulo (auto) 0.3 (0.0-0.5) % Sodium 136 (136-145) mmol/L Potassium 3.7 (3.5-5.1) mmol/L Chloride 101 (98-107) mmol/L Carbon Dioxide 28.7 (21.0-32.0) mmol/L Anion Gap 10.0 BUN 10.0 (7.0-18.0) mg/dL Creatinine 0.70 (0.55-1.02) mg/dL Est GFR ( Amer) >60 (>=60) Est GFR (Non-Af Amer) >60 (>=60) BUN/Creatinine Ratio 14.3 Glucose 103 (74-106) mg/dL Calcium 8.6 (8.5-10.1) mg/dL Total Bilirubin 0.3 (0.2-1.0) mg/dL AST 19 (15-37) U/L ALT 36 (14-59) U/L Alkaline Phosphatase 75 (46-116) U/L Total Protein 7.4 (6.4-8.2) g/dL Albumin 3.3 L (3.4-5.0) g/dL Globulin 4.1 g/dL Albumin/Globulin Ratio 0.8 Urine Color Yellow (YELLOW) Urine Clarity Clear (CLEAR) Urine pH 6.0 (5.0-9.0) Ur Specific [place] >=1.030 A (1.005-1.025) Urine Protein Negative (NEG/TRACE) mg/dL Urine Glucose (UA) Negative (NEGATIVE) mg/dL Urine Ketones Negative (NEGATIVE) mg/dL Urine Occult Blood Negative (NEGATIVE) Urine Nitrite Negative (NEGATIVE) Urine Bilirubin Negative (NEGATIVE) Urine Urobilinogen 0.2 (0.2-1.0) EU/dL Ur Leukocyte Esterase Negative (NEGATIVE) Urine RBC 0-2 (0-2) #/HPF Urine WBC 2-5 A (NONE SEEN) #/HPF Ur Squamous Epith Cells Few A (NONE/RARE) #/LPF Ur Transition Epith Cell Rare A (NONE SEEN) #/LPF Urine Crystals None seen (None Seen) #/HPF Urine Bacteria Small A (NONE SEEN) #/HPF Urine Casts None seen (NONE SEEN) #/LPF Urine Mucus Trace A (NONE SEEN) Ur Culture Indicated? Yes Urine HCG, Qual Negative (NEGATIVE) Salicylates <2.8 (<=19.9) mg/dL Urine Opiates Screen Negative (NEGATIVE) Ur Buprenorphine Scrn Negative (NEGATIVE) Ur Oxycodone Screen Negative (NEGATIVE) Urine Methadone Screen Negative (NEGATIVE) Acetaminophen <2.0 L (10.0-30.0) ug/mL Ur Barbiturates Screen Negative (NEGATIVE) U Tricyclic Antidepress Negative (NEGATIVE) Ur Phencyclidine Scrn Negative (NEGATIVE) Ur Amphetamines Screen Negative (NEGATIVE) U Methamphetamines Scrn Negative (NEGATIVE) U Benzodiazepines Scrn Negative (NEGATIVE) Urine Cocaine Screen Negative (NEGATIVE) U Cannabinoids Screen Negative (NEGATIVE) Ethanol Quant <3 mg/dL ECG Data Attestation: I personally reviewed and interpreted this ECG as follows: (Sinus rhythm at 76 bpm, normal axis, normal intervals, no acute ST segment elevation or T wave inversion) Discharge Plan Discharge Stand Alone Forms: Work/School Release, Portal Instructions Chief Complaint: Psychiatric Symptoms Clinical Impression: Depression, Acute anxiety, Bereavement reaction, Pain, dental Patient Disposition: Home, Self-Care Time of Disposition Decision: 03:32 Condition: Good Prescriptions / Home Meds: No Action valacyclovir 1 gram tablet 1,000 mg PO BID inositol 500 mg tablet 500 mg PO DAILY lamotrigine [Lamictal] 25 mg tablet 25 mg PO Q12H coenzyme Q10 [Co Q-10] 100 mg capsule 200 mg PO DAILY megestrol 20 mg tablet See Rx Instructions .ROUTE .COMPLEX Qty: 10 0RF Rx Instructions: 20 mg orally twice a day for 3 days then 1 by mouth daily duloxetine 30 mg capsule,delayed release(DR/EC) 120 mg PO QDAY gabapentin 300 mg capsule 300 mg PO Q12H PRN (Reason: pain) albuterol sulfate [ProAir HFA] 90 mcg/actuation HFA aerosol inhaler 2 inh inhalation Q6H PRN (Reason: shortness of breath or wheezing) lisinopril 20 mg tablet 20 mg PO DAILY metformin 500 mg tablet 500 mg PO BID cyclobenzaprine 10 mg tablet 10 mg PO TID celecoxib [Celebrex] 100 mg capsule 100 mg PO BID Print Language: Sinhala Instructions: Depression (ED), Grief and Loss (ED), Generalized Anxiety Disorder (ED), Toothache (ED) Additional Instructions: Call your counselor today for further evaluation. Return to the ED for worsening depression, anxiety, thoughts of hurting yourself or any concerns. Referrals: CHRIS LOPEZ [Primary Care Provider] - 1 week
--- NOTE | 2024-04-12 01:07 | ECG_ITS ---
[facility] Test Date: 2024-04-12 Pat Name: DIMITRY PACK Department: Room: - Gender: Female [employer] Attendant: : 1990 Requested By: Manisha Marc Order Number: [id number] Reading MD: GERRY ARENAS Measurements Intervals [place] Rate: 76 P: 47 CT: 152 QRS: 59 QRSD: 82 T: 8 QT: 378 QTc: 409 Interpretive Statements 1100 Sinus rhythm 9110 normal ECG Compared to ECG 01/17/2023 11:16:00 T-wave abnormality no longer present Electronically Signed On 04-12-2024 6:56:20 EDT by GERRY ARENAS
[2024-04-12 01:10] VITALS: BP 163/89; PULSE 89; TEMP 36.9; O2SAT 98; BMI 56.6
--- OUTSIDE RECORDS SUMMARY | 2024-04-12 01:10 | XMS_ITS | CCD ---
Author Organization [facility] Care Team Providers Care Repairer Controller Tester Name Role Phone BRENT KINNEY Referring Unavailable BRENT KINNEY Attending Unavailable BRENT KINNEY Admitting Unavailable Michelle Ernandez Unavailable VIOLA, DR NUR Consulting Unavailable WHATELY, DR NUR Admitting Unavailable HOUSE, DR NUR Primary Care Unavailable HOUSE, DR NUR Attending Unavailable ZIEBER, DR SUGEY Ibrahim Consulting Unavailable FREDA ., DR COLLADO Admitting Unavailable HOUSE, DR NUR Primary Care Unavailable FREDA ., DR COLLADO Attending Unavailable FREDA ., DR COLLADO Consulting Unavailable HOUSE, DR NUR Consulting Unavailable WHATELY, DR NUR Primary Care Unavailable HOUSE, DR [...] Primary Care Provider ROSITA Marc Attending Provider [phone] DO Celio Mullins Attending Provider [phone] ROSITA Marc Primary Care Provider MD Clinton Frazier Attending Provider [phone] ROSITA Marc Attending Provider ROSITA Marc Primary Care Provider DO Celoi Mullins Attending Provider MD Edward Gilmore Attending Provider MD Clinton Frazier Attending Provider ROSITA Marc Primary Care Provider MD Edward Gilmore Attending Provider DO Akil Cox Attending Provider [phone] ROSITA Marc Primary Care Provider MD Edward Gilmore Attending Provider ROSITA Marc Attending Provider [phone] DO Akil Cox Attending Provider ROSITA Marc Primary Care Provider MD Edward Gilmore Attending Provider [phone] ROSITA Marc Primary Care Provider MD Edward Gilmore Attending Provider [phone] Giwill CROWLEY, Andrius Vytautcortez Attending Unavailable Garret CROWLEY, Andrius Vytautas Attending Unavailable Garret CROWLEY, Andrius Vytautas Attending Unavailable Garret CROWLEY, Andrius Vytautas Attending Unavailable TOBIAS OSCAR Attending Unavailable MELA ANDERSON Attending Unavailable MELA ANDERSON Attending Unavailable Manisha Marc Attending Unavailable Manisha Marc Admitting Unavailable Manisha Marc Primary Care Unavailable Deirdre Edwadr Admitting Unavailab Edward Lance Attending Unavailab zach Marc [facility] Unavailable Ivon Mullinsten M Admitting Unavailable MullinsIvonCelio M Attending Unavailable Tari [facility] Unavailable Clinton Frazier L Admitting Unavailable Clinton Frazier L Attending Unavailable [facility] Unavailable Mullins, Celio M Admitting Unavailable Mullins, Celio M Attending Unavailable Mullins, Celio M Admitting Unavailable Mullins, Celio M Attending Unavailable [facility] Unavailable Akil Cox Attending Unavailab Akil Avila Admitting Unavailab zach Marc [facility] Unavailable Allergies Allergy Classification Reported Allergen(s) Allergy Type Date of Onset Reaction(s) Facility (20 sources) Amoxicillin; Translations: [AMOXICILLIN] Drug Allergy 07-08-20 16 [facility] Repository (9 sources) Cefaclor; Translations: [CEFACLOR] Drug Allergy 04-14-20 15 Unknown Reaction, [facility] Repository (19 sources) Erythromycin; Translations: [ERYTHROMYCIN] Drug Allergy 04-14-20 15 [facility] Repository (19 sources) Cefaclor; Translations: [Ceclor] Drug Allergy 04-17-20 15 [facility] Repository (8 sources) Erythromycin Drug Allergy 04-17-20 15 Unknown Reaction, [facility] Repository (8 sources) Cephalosporins (Antibiotic); Translations: [Cephalosporins] Allergy to substance 12-10-19 22 Unknown Reaction, Rash [facility] (3 sources) Lactulose; Translations: [lactulose] Drug Allergy 02-12-20 20 Unknown Reaction [facility] (1 source) Erythromycin Drug Allergy 11-26-19 24 [facility] Repository Medications Current Medications Medication Drug Class(es) Dates Sig (Normalized) Sig (Original) [id number] 200 actuat albuterol 0.09 mg/actuat metered dose [...] Tari Garnett take 1 capsule by mo [facility] once daily as needed Gabapentin 300 MG [...] 2023 10:18am take 1 tablet by miranda th every [...] 05, 2020 12:00am December 07, 2021 10:45am Savanna Masterson-Cate Corrales Active 24 hr buPROPion [...] Basophils (Bld) [#/Vol] 0.0 10 3/uL 0.0-0.1 [facility] Basophils/100 WBC Auto (Bld) on 11-03-2023 Basophils/100 WBC (Bld) 0.5 % 0.2-2.0 [facility] Eosinophils/100 WBC Auto (Bl d)on 11-03-2023 Eosinophils/100 WBC (Bld) 1.4 % 0.9-7.0 [facility] Erythrocyte distribution wid th Auto (RBC) [Ratio]on 11-03-2023 Erythrocyte distribution width (RBC) [Ratio] 16.3 % 11.0-15.0 [facility] Estimated glomerular filtrat ion rate (GFR) non- Americanon 11-03-2023 GFR/1.73 sq M.predicted among non-blacks MDRD (S/P/Bld) [Vol rate/Area] mL/min/{1.73_m2} >=60 [facility] Globulin Calc (S) [Mass/Vol] on 11-03-2023 Globulin (S) [Mass/Vol] 4.0 g/dL [facility] Hematocrit Auto (Bld) [Volum e fraction]on 11-03-2023 Hematocrit (Bld) [Volume fraction] 26.1 % 36.0-48.0 [facility] Hemoglobin [Mass/volume] in Bloodon 11-03-2023 Hemoglobin (Bld) [Mass/Vol] 7.8 g/dL 12.0-16.0 [facility] Human papilloma virus 16+18+ 31+33+35+39+45+51+52+56+58+59+66+68 DNA [Presence] in [place] 11-03-2023 HPV 16+18+31+33+35+39+45+51 +52+56+58+59+66+68 DNA Probe+sig amp Ql (Cvx) Negative Negative [facility] Comment on above: This nucleic acid am plification test detects fourteen high-risk HPV types (16,18,31,33,35,39,45,51,52,56,58,59,66,68)without differentiation.Performed at: =G - [facility] [address] [facility] [place], [place] [id number] Director: Monse Cardona MD, Phone: [phone] at: WB - [facility] [address] [place], [place] [id number] Director: Monse Cardona MD, Phone: [phone] Iron binding capacity [Mass/ volume] in Serum or Plasmaon 11-03-2023 Iron binding capacity [Mass/Vol] 512.0 ug/dL 250.0-450.0 [facility] Iron saturation [Mass Fracti on] in Serum or Plasmaon 11-03-2023 Iron saturation [Mass fraction] 2.7 % [facility] Laboratory - Chemistry and C hemistry - challengeon 11-03-2023 Albumin [Mass/Vol] 3.1 g/dL 3.4-5.0 [facility] ALP [Catalytic activity/Vol] 63 U/L 46-116 [facility] ALT [Catalytic activity/Vol] 29 U/L 14-59 [facility] AST [Catalytic activity/Vol] 18 U/L 15-37 [facility] Bilirubin [Mass/Vol] 0.2 mg/dL 0.2-1.0 [facility] Calcium [Mass/Vol] 8.7 mg/dL 8.5-10.1 [facility] Chloride [Moles/Vol] 102 mmol/L 98-107 [facility] CO2 [Moles/Vol] 27.6 mmol/L 21.0-32.0 [facility] Creatinine [Mass/Vol] 0.70 mg/dL 0.55-1.02 [facility] Ferritin [Mass/Vol] 6.0 ng/mL 8.0-252.0 [facility] GFR/1.73 sq M.predicted MDRD (S/P/Bld) [Vol rate/Area] mL/min/{1.73_m2} >=60 [facility] Glucose [Mass/Vol] 103 mg/dL 74-106 [facility] Iron [Mass/Vol] 14.0 ug/dL 50.0-170.0 [facility] Potassium [Moles/Vol] 3.8 mmol/L 3.5-5.1 [facility] Protein [Mass/Vol] 7.1 g/dL 6.4-8.2 [facility] Sodium [Moles/Vol] 139 mmol/L 136-145 [facility] Urea nitrogen [Mass/Vol] 11.0 mg/dL 7.0-18.0 [facility] Urea nitrogen/Creatinine [Mass ratio] 15.7 mg/mg [facility] Laboratory - Hematology and Cell countson 11-03-2023 Immature granulocytes/100 WBC (Bld) 0.4 % 0.0-0.5 [facility] Leukocytes [#/volume] correc carmelita for nucleated erythrocytes in Blood by Automated counon 11-03-2023 WBC corrected for nucl RBC Auto (Bld) [#/Vol] 7.4 10 3/uL 4.0-11.0 [facility] Lymphocytes Auto (Bld) [#/Vo l]on 11-03-2023 Lymphocytes (Bld) [#/Vol] 2.5 10 3/uL 1.2-3.8 [facility] Lymphocytes/100 WBC Auto (Bl d)on 11-03-2023 Lymphocytes/100 WBC (Bld) 33.6 % 20.5-60.0 [facility] MCH Auto (RBC) [Entitic mass ]on 11-03-2023 MCH (RBC) [Entitic mass] 24.8 pg 26.7-34.0 [facility] MCHC Auto (RBC) [Mass/Vol]on 11-03-2023 MCHC (RBC) [Mass/Vol] 29.9 g/dL 29.9-35.2 [facility] MCV Auto (RBC) [Entitic vol] on 11-03-2023 MCV (RBC) [Entitic vol] 82.9 fL 81.0-99.0 [facility] Monocytes Auto (Bld) [#/Vol] on 11-03-2023 Monocytes (Bld) [#/Vol] 0.4 10 3/uL 0.3-0.8 [facility] Monocytes/100 WBC Auto (Bld) on 11-03-2023 Monocytes/100 WBC (Bld) 5.6 % 1.7-12.0 [facility] Neutrophils Auto (Bld) [#/Vo l]on 11-03-2023 Neutrophils (Bld) [#/Vol] 4.3 10 3/uL 1.4-6.5 [facility] Neutrophils/100 WBC Auto (Bl d)on 11-03-2023 Neutrophils/100 WBC (Bld) 58.5 % 43.0-75.0 [facility] No Panel Informationon 11-02 Eosinophils # (Auto) 0.1 10 3/uL 0.0-0.7 [facility] Immature Granulocyte # (Auto) 0.03 10 3/uL 0.00-0.03 [facility] HPV High Risk Other Comment Note . [facility] Comment on above: TESTS RESULT FLAG UN ITS REF RANGE LAB -DIAGNOSIS: 02 NEGATIVE FOR INTRAEPITHELIAL LESION OR MALIGNANCY.Specimen adequacy: 02 Satisfactory for evaluation. Endocervical and/or squamous metaplastic cells (endocervical component) are present.Performed by: Mikhail Escalante, Ctc Operator (ASCP). 02Note: Note 02 The Pap smear [...] Low,>-Panic High,A-Abnormal,AA-Critical Abnormal ------Performed at:02 WB [facility] [address] [place] [address] Monse Cardona MD, Reference Lab Test Patient Age Note . [facility] Comment on above: TESTS RESULT FLAG UN ITS REF RANGE LAB - Clinician Provided Cytology Information Source.............Cervix;Endocervix No. of containers..01 ThinPrep VialAge Algo ACOG Elise... 01 FLAG LEGEND: L-Low Normal,H-High Normal,LL-Alert Low,HH-Alert High <-Panic Low,>-Panic High,A-Abnormal,AA-Critical Abnormal ------Performed at:01 =G [facility] [address] [place] [address] Monse Cardona MD, Platelet mean volume Auto (B ld) [Entitic vol]on 11-03-2023 Platelet mean volume (Bld) [Entitic vol] 9.6 fL 9.5-13.5 [facility] Platelets Auto (Bld) [#/Vol] on 11-03-2023 Platelets (Bld) [#/Vol] 323 10 3/uL 150-450 [facility] RBC Auto (Bld) [#/Vol]on RBC (Bld) [#/Vol] 3.15 10 6/uL 4.20-5.40 [facility] Serum or plasma albumin/glob ulin mass ratioon 11-03-2023 Albumin/Globulin [Mass ratio] 0.8 {ratio} [facility] Serum or plasma anion gap de terminationon 11-03-2023 Anion gap [Moles/Vol] 13.2 mmol/L [facility] Basophils Auto (Bld) [#/Vol] on 10-30-2023 Basophils (Bld) [#/Vol] 0.0 10 3/uL 0.0-0.1 [facility] Basophils/100 WBC Auto (Bld) on 10-30-2023 Basophils/100 WBC (Bld) 0.6 % 0.2-2.0 [facility] Eosinophils/100 WBC Auto (Bl d)on 10-30-2023 Eosinophils/100 WBC (Bld) 1.2 % 0.9-7.0 [facility] Erythrocyte distribution wid th Auto (RBC) [Ratio]on 10-30-2023 Erythrocyte distribution width (RBC) [Ratio] 16.6 % 11.0-15.0 [facility] Estimated glomerular filtrat ion rate (GFR) non- Americanon 10-30-2023 GFR/1.73 sq M.predicted among non-blacks MDRD (S/P/Bld) [Vol rate/Area] mL/min/{1.73_m2} >=60 [facility] HCG ( test) IA.rapi d Ql (U)on 10-30-2023 HCG ( test) Ql (U) Negative NEGATIVE [facility] Hematocrit Auto (Bld) [Volum e fraction]on 10-30-2023 Hematocrit (Bld) [Volume fraction] 26.6 % 36.0-48.0 [facility] Hemoglobin [Mass/volume] in Bloodon 10-30-2023 Hemoglobin (Bld) [Mass/Vol] 7.9 g/dL 12.0-16.0 [facility] Laboratory - Chemistry and C hemistry - challengeon 10-30-2023 Calcium [Mass/Vol] 8.5 mg/dL 8.5-10.1 [facility] Chloride [Moles/Vol] 101 mmol/L 98-107 [facility] CO2 [Moles/Vol] 28.8 mmol/L 21.0-32.0 [facility] Creatinine [Mass/Vol] 0.62 mg/dL 0.55-1.02 [facility] GFR/1.73 sq M.predicted MDRD (S/P/Bld) [Vol rate/Area] mL/min/{1.73_m2} >=60 [facility] Glucose [Mass/Vol] 104 mg/dL 74-106 [facility] Potassium [Moles/Vol] 4.0 mmol/L 3.5-5.1 [facility] Sodium [Moles/Vol] 137 mmol/L 136-145 [facility] Urea nitrogen [Mass/Vol] 8.0 mg/dL 7.0-18.0 [facility] Urea nitrogen/Creatinine [Mass ratio] 12.9 mg/mg [facility] Laboratory - Hematology and Cell countson 10-30-2023 Immature granulocytes/100 WBC (Bld) 0.4 % 0.0-0.5 [facility] Leukocytes [#/volume] correc carmelita for nucleated erythrocytes in Blood by Automated counon 10-30-2023 WBC corrected for nucl RBC Auto (Bld) [#/Vol] 7.3 10 3/uL 4.0-11.0 [facility] Lymphocytes Auto (Bld) [#/Vo l]on 10-30-2023 Lymphocytes (Bld) [#/Vol] 2.2 10 3/uL 1.2-3.8 [facility] Lymphocytes/100 WBC Auto (Bl d)on 10-30-2023 Lymphocytes/100 WBC (Bld) 30.2 % 20.5-60.0 [facility] MCH Auto (RBC) [Entitic mass ]on 10-30-2023 MCH (RBC) [Entitic mass] 25.0 pg 26.7-34.0 [facility] MCHC Auto (RBC) [Mass/Vol]on 10-30-2023 MCHC (RBC) [Mass/Vol] 29.7 g/dL 29.9-35.2 [facility] MCV Auto (RBC) [Entitic vol] on 10-30-2023 MCV (RBC) [Entitic vol] 84.2 fL 81.0-99.0 [facility] Monocytes Auto (Bld) [#/Vol] on 10-30-2023 Monocytes (Bld) [#/Vol] 0.3 10 3/uL 0.3-0.8 [facility] Monocytes/100 WBC Auto (Bld) on 10-30-2023 Monocytes/100 WBC (Bld) 3.7 % 1.7-12.0 [facility] Neutrophils Auto (Bld) [#/Vo l]on 10-30-2023 Neutrophils (Bld) [#/Vol] 4.6 10 3/uL 1.4-6.5 [facility] Neutrophils/100 WBC Auto (Bl d)on 10-30-2023 Neutrophils/100 WBC (Bld) 63.9 % 43.0-75.0 [facility] No Panel Informationon 10-29 Eosinophils # (Auto) 0.1 10 3/uL 0.0-0.7 [facility] Immature Granulocyte # (Auto) 0.03 10 3/uL 0.00-0.03 [facility] Platelet mean volume Auto (B ld) [Entitic vol]on 10-30-2023 Platelet mean volume (Bld) [Entitic vol] 9.4 fL 9.5-13.5 [facility] Platelets Auto (Bld) [#/Vol] on 10-30-2023 Platelets (Bld) [#/Vol] 264 10 3/uL 150-450 [facility] RBC Auto (Bld) [#/Vol]on RBC (Bld) [#/Vol] 3.16 10 6/uL 4.20-5.40 [facility] Serum or plasma anion gap de terminationon 10-30-2023 Anion gap [Moles/Vol] 11.2 mmol/L [facility]/brain wo/w conon MR head/brain wo/w con [facility] Main [place] [address] [place] [address] MRI Report Signed Patient: Ashly Mehta MR#: [id number] 8 : 1990 Acct:[id number] Age/Sex: 33 / F ADM Date: 10/08/23 Loc: MR Room: Type: [facility] CLI Attending Dr: Akil Cox DO Copies to: [...] Ivan Holliday M.D.10/08/2023 4:38 PM Dictation Location: [place] [address] Transcribed By: LAMINE 10/08/23 1638 Dictated By: Ivan Holliday II, MD 10/08/23 1630 Signed By: 10/08/23 1638 Normal [facility] HCG ( test) IAsurjitlive d Ql (U)on 10-06-2023 HCG ( test) Ql (U) Negative NEGATIVE [facility] COVID + FLU Quick Testingon 07-07-2023 SARS-CoV-2 (COVID-19) RNA SURI+probe Ql (Unsp spec) Negative [facility] [employer] Other COVID + FLU Quick Testing Negative [facility] [employer] Other Alanine aminotransferase [En zymatic activity/volume] in Serum or PlasmaOrdered By: Celio Mullins on 07-03-2023 ALT [Catalytic activity/Vol] 22 U/L Normal 7-52 [facility] Comment on above: Performed By: #### L IPID, CMP #### [facility] [address] [place] [address] [place] Albumin [Mass/volume] in Ser um or Plasma by Bromocresol green (BCG) dye binding methoOrdered By: Celio Mullins on 07-03-2023 Albumin BCG dye [Mass/Vol] 4.4 g/dL 3.5-5.7 [facility] Alkaline phosphatase [Enzyma tic activity/volume] in Serum or PlasmaOrdered By: Celio Mullins on 07-03-2023 ALP [Catalytic activity/Vol] 68 U/L Normal 34-104 [facility] Comment on above: Performed By: #### L IPID, CMP #### [facility] [address] [place] [address] [place] Aspartate aminotransferase [ Enzymatic activity/volume] in Serum or PlasmaOrdered By: Celio Mullins on 07-03-2023 AST [Catalytic activity/Vol] 18 U/L Normal 13-39 [facility] Comment on above: Performed By: #### L IPID, CMP #### [facility] [address] [place], [place] [id number] [place] Bilirubin.total [Mass/volume ] in Serum or PlasmaOrdered By: Celio Mullins on 07-03-2023 Bilirubin [Mass/Vol] 0.4 mg/dL Normal 0.3-1.0 [facility] Comment on above: Performed By: #### L IPID, CMP #### [facility] [address] [place] [address] [place] Calcium [Mass/volume] in Ser um or PlasmaOrdered By: Celio Mullins on 07-03-2023 Calcium [Mass/Vol] 9.4 mg/dL Normal 8.6-10.3 [facility] Comment on above: Performed By: #### L IPID, CMP #### [facility] [address] Carbon dioxide, total [Moles /volume] in Serum or PlasmaOrdered By: Celio Mullins on 07-03-2023 CO2 [Moles/Vol] 30.1 mmol/L Normal 21.0-31.0 [facility] Comment on above: Performed By: #### L IPID, CMP #### [facility] [address] [place] [address] [place] Chloride [Moles/volume] in S marta or PlasmaOrdered By: Celio Mullins on 07-03-2023 Chloride [Moles/Vol] 105 mmol/L Normal 98-107 [facility] Comment on above: Performed By: #### L IPID, CMP #### [facility] [address] [place] [address] [place] Cholesterol [Mass/volume] in Serum or PlasmaOrdered By: Celio Mullins on 07-03-2023 Cholesterol [Mass/Vol] 126 mg/dL Low 140-200 [facility] Comment on above: Chol less than 200 m g/dl low riskChol 201-239 mg/dl borderline riskChol 240 mg/dl and greater high risk Result Comment: Chol less than 200 mg/dl low risk Chol 201-239 mg/dl borderline risk Chol 240 mg/dl and greater high risk Performed By: #### L IPID, CMP #### [facility] [address] [place] [address] [place] Cholesterol in LDL Calc [Mas s/Vol]Ordered By: Celio Mullins on 07-03-2023 Cholesterol in LDL [Mass/Vol] 69 mg/dL 0-100 [facility] Comment on above: LDL ATP III CLASSIFI CATIONLDL less than 100 mg/dL OptimalLDL 100-129 mg/dL Near or above optimalLDL 130-159 mg/dL Borderline highLDL 160-189 mg/dL HighLDL greater than 189 mg/dL Very high Cholesterol in VLDL Calc [Ma ss/Vol]Ordered By: Celio Mullins on 07-03-2023 Cholesterol in VLDL [Mass/Vol] 18 mg/dL [facility] Comprehensive Metabolic Pane landon 07-03-2023 Albumin [Mass/Vol] 4.4 g/dL Normal 3.5-5.7 [facility] Comment on above: Performed By: #### L IPID, CMP #### [facility] [address] [place] [address] [place] GFR/1.73 sq M.predicted MDRD (S/P/Bld) [Vol rate/Area] mL/min/{1.73_m2} Normal [facility] Comment on above: Performed By: #### L IPID, CMP #### [facility] [address] [place] [address] [place] Creatinine [Mass/volume] in Serum or PlasmaOrdered By: Celio Mullins on 07-03-2023 Creatinine [Mass/Vol] 0.63 mg/dL Normal 0.60-1.20 [facility] Comment on above: Performed By: #### L IPID, CMP #### [facility] [address] [place] [id number] [place] Glucose [Mass/volume] in Ser um or PlasmaOrdered By: Celio Mullins on 07-03-2023 Glucose [Mass/Vol] 97 mg/dL Normal 70-100 [facility] Comment on above: ADA recommended refe rence rangeRandom Glucose Reference Range is dependent on time and content of last meal. Glucose of more than 200 mg/dL in a nonstressed, ambulatory subject supports the diagnosis of Diabetes Mellitus. Result Comment: Hersey om Glucose Reference Range is dependent on time and content of last meal. Glucose of more than 200 mg/dL in a nonstressed, ambulatory subject supports the diagnosis of Diabetes Mellitus. ADA recommended reference range Performed By: #### L IPID, CMP #### [facility] [address] Lipid Panelon 07-03-2023 LDL Cholesterol,Calculated 69 mg/dL Normal 0-100 [facility] Comment on above: Result Comment: LDL ATP III CLASSIFICATION LDL less than 100 mg/dL Optimal LDL 100-129 mg/dL Near or above optimal LDL 130-159 mg/dL Borderline high LDL 160-189 mg/dL High LDL greater than 189 mg/dL Very high Performed By: #### L IPID, CMP #### [facility] [address] Triglyceride w/Reflex 92 mg/dL Normal 0-149 [facility] Comment on above: Result Comment: TRIG ATP III CLASSIFICATION TRIG less than 150 mg/dL Normal TRIG 150-199 mg/dL Borderline high TRIG 200-500 mg/dL High TRIG greater than 500 mg/dL Very high Standard traceable to the Center for Disease Conrtrol and Prevention (CDC) test method. Performed By: #### L IPID, CMP #### [facility] [address] VLDL CHOLESTEROL 18 mg/dL Normal [facility] Comment on above: Performed By: #### L IPID, CMP #### [address] No Panel InformationOrdered By: Celio Mullins on 07-03-2023 Estimated GFR (CKD-EPI) > 60.0 mL/Min [facility] Creatinine Clearance (Chem N/A [facility] Potassium [Moles/volume] in Serum or PlasmaOrdered By: Celio Mullins on 07-03-2023 Potassium [Moles/Vol] 4.3 mmol/L Normal 3.5-5.1 [facility] Comment on above: Performed By: #### L IPID, CMP #### [address] Protein [Mass/volume] in Ser um or PlasmaOrdered By: Celio Mullins on 07-03-2023 Protein [Mass/Vol] 7.5 g/dL Normal 6.4-8.9 [facility] Comment on above: Performed By: #### L IPID, CMP #### [facility] [address] Serum globulin measurement b y calculation (mass/volume)Ordered By: Celio Mullins on 07-03-2023 Globulin (S) [Mass/Vol] 3.1 g/dL Normal [facility] Comment on above: Performed By: #### L IPID, CMP #### [facility] [address] [place] [address] Serum or plasma albumin/glob ulin mass ratioOrdered By: Celio Mullins on 07-03-2023 Albumin/Globulin [Mass ratio] 1.4 {ratio} Normal [facility] Comment on above: Performed By: #### L IPID, CMP #### [address] Serum or plasma anion gap de terminationOrdered By: Celio Mullins on 07-03-2023 Anion gap [Moles/Vol] 10.2 mmol/L Normal 6.0-15.0 [facility] Comment on above: Performed By: #### L IPID, CMP #### [facility] [address] [place] [address] Serum or plasma high density lipoprotein (HDL) cholesterol measurementOrdered By: Celio Mullins on 07-03-2023 Cholesterol in HDL [Mass/Vol] 39 mg/dL Normal 23-92 [facility] Comment on above: HDL CHOL ATP-III CLA SSIFICATION Cardiovascular RiskHDL > or equal to 60 mg/dL LOWHDL < 40 mg/dL HIGH Result Comment: HDL CHOL ATP-III CLASSIFICATION Cardiovascular Risk HDL > or equal to 60 mg/dL LOW HDL < 40 mg/dL HIGH Performed By: #### L IPID, CMP #### [facility] [address] [place] [address] Serum or plasma total choles terol/high density lipoprotein (HDL) cholesterol mass ratOrdered By: Celio Mullins on 07-03-2023 Cholesterol.total/Mali sterol in HDL [Mass ratio] 3.2 {ratio} Normal <5.0 [facility] Comment on above: Result Comment: PERF ORMED BY: [place] [address] PATHOLOGIST SIDE PULLER NESHA MAIER M.D. Performed By: #### L IPID, CMP #### [address] Sodium [Moles/volume] in Ser um or PlasmaOrdered By: Celio Mullins on 07-03-2023 Sodium [Moles/Vol] 141 mmol/L Normal 136-145 [facility] Comment on above: Performed By: #### L IPID, CMP #### [address] Triglyceride [Mass/volume] i n Serum or PlasmaOrdered By: Celio Mullins on 07-03-2023 Triglyceride [Mass/Vol] 92 mg/dL 0-149 [facility] Comment on above: TRIG ATP III CLASSIF ICATIONTRIG less than 150 mg/dL NormalTRIG 150-199 mg/dL Borderline highTRIG 200-500 mg/dL High TRIG greater than 500 mg/dL Very highStandard traceable to the Center for Disease Conrtrol and Prevention (CDC) test method. Urea nitrogen [Mass/volume] in Serum or PlasmaOrdered By: Celio Mullins on 07-03-2023 Urea nitrogen [Mass/Vol] 13 mg/dL Normal 7-25 [facility] Comment on above: Performed By: #### L IPID, CMP #### [address] A1C with Estimated Average G luon 07-01-2023 Glucose [Mass/Vol] 117 mg/dL Normal [facility] Comment on above: Order Comment: Reaso n for Exam Severe obesity (BMI >= 40);PCOS (polycystic ovarian syndrome Result Comment: PERF ORMED BY: [place] [address] PATHOLOGIST SIDE PULLER NESHA MAIER M.D. Performed By: #### A POB, LIPA #### [facility] , #### CMP, A1C WTH eA #### [place] [address] [place] Alanine aminotransferase [En zymatic activity/volume] in Serum or PlasmaOrdered By: Celio Mullins on 07-01-2023 ALT [Catalytic activity/Vol] 21 U/L Normal 7-52 [facility] Comment on above: Order Comment: Reaso n for Exam Severe obesity (BMI >= 40);PCOS (polycystic ovarian syndrome NON FASTING Performed By: #### A POB, LIPA #### [facility] , #### CMP, A1C [facility] eA #### [facility] [address] [place] [address] [place] Albumin [Mass/volume] in Ser um or Plasma by Bromocresol green (BCG) dye binding methoOrdered By: Celio Mullins on 07-01-2023 Albumin BCG dye [Mass/Vol] 4.6 g/dL 3.5-5.7 [facility] Alkaline phosphatase [Enzyma tic activity/volume] in Serum or PlasmaOrdered By: Celio Mullins on 07-01-2023 ALP [Catalytic activity/Vol] 72 U/L Normal 34-104 [facility] Comment on above: Order Comment: Reaso n for Exam Severe obesity (BMI >= 40);PCOS (polycystic ovarian syndrome NON FASTING Result Comment: PERF ORMED BY: [place] [address] PATHOLOGIST SIDE PULLER NESHA MAIER M.D. Performed By: #### A POB, LIPA #### [facility] , #### CMP, A1C [facility] eA #### [facility] [address] [place] [address] Apolipoprotein B [Mass/volum e] in Serum or PlasmaOrdered By: Celio Mullins on 07-01-2023 Apolipoprotein B [Mass/Vol] 83 mg/dL Normal <90 [facility] Comment on above: Desirable < 90 Charissa almanza High 90 - 99 High 100 - 130 Very High >130 ASCVD RISK THERAPEUTIC TARGET CATEGORY APO B (mg/dL) Very High Risk <80 (if extreme risk <70) High Risk <90 Moderate Risk <90Performed at: [facility] [address] [id number] Director: Jeanna Case MD, Phone: [phone] Order Comment: Reaso n for Exam Severe obesity (BMI >= 40);PCOS (polycystic ovarian syndrome Result Comment: Hedy rable < 90 Borderline High 90 - 99 High 100 - 130 Very High >130 ASCVD RISK THERAPEUTIC TARGET CATEGORY APO B (mg/dL) Very High Risk <80 (if extreme risk <70) High Risk <90 Moderate Risk <90 Performed at: [facility] [address] [employer] [id number] Custom Tailor Apprentice: Jeanna Case MD, Phone: [phone] PERFORMED BY: [place] [address] PATHOLOGIST SIDE PULLER NESHA MAIER M.D. Performed By: #### A POB, LIPA #### [facility] , #### CMP, A1C WT eA #### [address] Aspartate aminotransferase [ Enzymatic activity/volume] in Serum or PlasmaOrdered By: Celio Mullins on 07-01-2023 AST [Catalytic activity/Vol] 19 U/L Normal 13-39 [facility] Comment on above: Order Comment: Reaso n for Exam Severe obesity (BMI >= 40);PCOS (polycystic ovarian syndrome NON FASTING Performed By: #### A POB, LIPA #### [facility] , #### CMP, A1C WT eA #### [address] Bilirubin.total [Mass/volume ] in Serum or PlasmaOrdered By: Celio Mullins on 07-01-2023 Bilirubin [Mass/Vol] 0.4 mg/dL Normal 0.3-1.0 [facility] Comment on above: Order Comment: Reaso n for Exam Severe obesity (BMI >= 40);PCOS (polycystic ovarian syndrome NON FASTING Performed By: #### A POB, LIPA #### [facility] , #### CMP, A1C WTH eA #### [facility] [address] [place] [address] [place] Calcium [Mass/volume] in Ser um or PlasmaOrdered By: Celio Mullins on 07-01-2023 Calcium [Mass/Vol] 9.8 mg/dL Normal 8.6-10.3 [facility] Comment on above: Order Comment: Reaso n for Exam Severe obesity (BMI >= 40);PCOS (polycystic ovarian syndrome NON FASTING Performed By: #### A POB, LIPA #### [facility] , #### CMP, A1C WTH eA #### [place] [address] [place] Carbon dioxide, total [Moles /volume] in Serum or PlasmaOrdered By: Celio Mullins on 07-01-2023 CO2 [Moles/Vol] 25.3 mmol/L Normal 21.0-31.0 [facility] Comment on above: Order Comment: Reaso n for Exam Severe obesity (BMI >= 40);PCOS (polycystic ovarian syndrome NON FASTING Performed By: #### A POB, LIPA #### [facility] , #### CMP, A1C WTH eA #### [facility] [address] [place] [address] [place] Chloride [Moles/volume] in S marta or PlasmaOrdered By: Celio Mullins on 07-01-2023 Chloride [Moles/Vol] 105 mmol/L Normal 98-107 [facility] Comment on above: Order Comment: Reaso n for Exam Severe obesity (BMI >= 40);PCOS (polycystic ovarian syndrome NON FASTING Performed By: #### A POB, LIPA #### [facility] , #### CMP, A1C WTH eA #### [facility] [id number] [facility] Comprehensive Metabolic Pane landon 07-01-2023 Albumin [Mass/Vol] 4.6 g/dL Normal 3.5-5.7 [facility] Comment on above: Order Comment: Reaso n for Exam Severe obesity (BMI >= 40);PCOS (polycystic ovarian syndrome NON FASTING Performed By: #### A POB, LIPA #### [facility] , #### CMP, A1C WTH eA #### [place] [address] [place] GFR/1.73 sq M.predicted MDRD (S/P/Bld) [Vol rate/Area] mL/min/{1.73_m2} Normal [facility] Comment on above: Order Comment: Reaso n for Exam Severe obesity (BMI >= 40);PCOS (polycystic ovarian syndrome NON FASTING Performed By: #### A POB, LIPA #### [facility] , #### CMP, A1C WT eA #### [place] [id number] [facility] Creatinine [Mass/volume] in Serum or PlasmaOrdered By: Celio Mullins on 07-01-2023 Creatinine [Mass/Vol] 0.64 mg/dL Normal 0.60-1.20 [facility] Comment on above: Order Comment: Reaso n for Exam Severe obesity (BMI >= 40);PCOS (polycystic ovarian syndrome NON FASTING Performed By: #### A POB, LIPA #### [facility] , #### CMP, A1C WT eA #### [place] [id number] [facility] Glucose [Mass/volume] in Ser um or PlasmaOrdered By: Celio Mullins on 07-01-2023 Glucose [Mass/Vol] 95 mg/dL Normal 70-100 [facility] Comment on above: ADA recommended refe rence rangeRandom Glucose Reference Range is dependent on time and content of last meal. Glucose of more than 200 mg/dL in a nonstressed, ambulatory subject supports the diagnosis of Diabetes Mellitus. Order Comment: Reaso n for Exam Severe obesity (BMI >= 40);PCOS (polycystic ovarian syndrome NON FASTING Result Comment: Hersey om Glucose Reference Range is dependent on time and content of last meal. Glucose of more than 200 mg/dL in a nonstressed, ambulatory subject supports the diagnosis of Diabetes Mellitus. ADA recommended reference range Performed By: #### A POB, LIPA #### [facility] , #### CMP, A1C WTH eA #### [facility] [id number] [facility] Glucose mean value [Mass/vol ume] in Blood Estimated from glycated hemoglobinOrdered By: Celio Mullins on 07-01-2023 Average glucose Estimated from glycated hemoglobin (Bld) [Mass/Vol] 117 mg/dL [facility] Hemoglobin A1c percentageOrd ered By: Celio Mullins on 07-01-2023 HbA1c (Bld) [Mass fraction] 5.7 % High 4.3-5.6 [facility] Comment on above: Increased risk for [...] , #### CMP, A1C WTH eA #### [facility] [id number] [facility] Lipoprotein (a)on 07-01-2023 Lipoprotein a [Mass/Vol] 13.0 mg/dL Normal <75.0 [facility] Comment on above: Order Comment: Reaso n for Exam Severe obesity (BMI >= 40);PCOS (polycystic ovarian syndrome Result Comment: Note : Values greater than or equal to 75.0 nmol/L may indicate an independent risk factor for CHD, but must be evaluated with caution when applied to non- populations due to the influence of genetic factors on Lp(a) across ethnicities. Performed at: CB - [facility] [address] [id number] Custom Tailor Apprentice: Cassius Zhong PhD, Phone: [phone] Performed By: #### A POB, LIPA #### [facility] , #### CMP, A1C WTH eA #### [address] No Panel InformationOrdered By: Celio Mullins on 07-01-2023 Estimated GFR (CKD-EPI) > 60.0 mL/Min [facility] Creatinine Clearance (Chem N/A [facility] Potassium [Moles/volume] in Serum or PlasmaOrdered By: Celio Mullins on 07-01-2023 Potassium [Moles/Vol] 3.8 mmol/L Normal 3.5-5.1 [facility] Comment on above: Order Comment: Reaso n for Exam Severe obesity (BMI >= 40);PCOS (polycystic ovarian syndrome NON FASTING Performed By: #### A POB, LIPA #### [facility] , #### CMP, A1C WT eA #### [place] [address] [place] Protein [Mass/volume] in Ser um or PlasmaOrdered By: Celio Mullins on 07-01-2023 Protein [Mass/Vol] 7.8 g/dL Normal 6.4-8.9 [facility] Comment on above: Order Comment: Reaso n for Exam Severe obesity (BMI >= 40);PCOS (polycystic ovarian syndrome NON FASTING Performed By: #### A POB, LIPA #### [facility] , #### CMP, A1C WTH eA #### [place] [address] [place] Serum globulin measurement b y calculation (mass/volume)Ordered By: Celio Mullins on 07-01-2023 Globulin (S) [Mass/Vol] 3.2 g/dL Normal [facility] Comment on above: Order Comment: Reaso n for Exam Severe obesity (BMI >= 40);PCOS (polycystic ovarian syndrome NON FASTING Performed By: #### A POB, LIPA #### [facility] , #### CMP, A1C WTH eA #### [facility] [address] Serum or plasma albumin/glob ulin mass ratioOrdered By: Celio Mullins on 07-01-2023 Albumin/Globulin [Mass ratio] 1.4 {ratio} Normal [facility] Comment on above: Order Comment: Reaso n for Exam Severe obesity (BMI >= 40);PCOS (polycystic ovarian syndrome NON FASTING Performed By: #### A POB, LIPA #### [facility] , #### CMP, A1C WT eA #### [facility] [address] [place] [address] Serum or plasma anion gap de terminationOrdered By: Celio Mullins on 07-01-2023 Anion gap [Moles/Vol] 11.5 mmol/L Normal 6.0-15.0 [facility] Comment on above: Order Comment: Reaso n for Exam Severe obesity (BMI >= 40);PCOS (polycystic ovarian syndrome NON FASTING Performed By: #### A POB, LIPA #### [facility] , #### CMP, A1C WT eA #### [address] Serum or plasma lipoprotein a measurement (moles/volume)Ordered By: Celio Mullins on 07-01-2023 Lipoprotein a [Moles/Vol] 13.0 nmol/L <75.0 [facility] Comment on above: Note: Values greater than or equal to 75.0 nmol/L may indicate an independent risk factor for CHD, but must be evaluated with caution when applied to non- populations due to the influence of genetic factors on Lp(a) across ethnicities.Performed at: [facility] [address] [id number] Director: Cassius Zhong PhD, Phone: [phone] Sodium [Moles/volume] in Ser um or PlasmaOrdered By: Celio Mullins on 07-01-2023 Sodium [Moles/Vol] 138 mmol/L Normal 136-145 [facility] Comment on above: Order Comment: Reaso n for Exam Severe obesity (BMI >= 40);PCOS (polycystic ovarian syndrome NON FASTING Performed By: #### A POB, LIPA #### [facility] , #### CMP, A1C WTH eA #### [facility] [id number] [facility] Urea nitrogen [Mass/volume] in Serum or PlasmaOrdered By: Celio Mullins on 07-01-2023 Urea nitrogen [Mass/Vol] 16 mg/dL Normal 7-25 [facility] Comment on above: Order Comment: Reaso n for Exam Severe obesity (BMI >= 40);PCOS (polycystic ovarian syndrome NON FASTING Performed By: #### A POB, LIPA #### [facility] , #### CMP, A1C WTH eA #### [facility] [id number] [facility] COVID Quick Testingon 2022 Result Negative [facility] Other SARS-CoV-2 (COVID-19) RNA NA A+probe Ql (Resp)on 02-11-2023 SARS-CoV-2 (COVID-19) RNA SURI+probe Ql (Unsp spec) Negative [facility] [employer] Other DHEA-SULFATEon 01-01-2023 DHEA-Sulfate 95.3 ug/dL Normal 84.8-378.0 [facility] Comment on above: Performed By: #### D RIMA #### [facility] [address] [place] [address] Dr. Kaushik Palomares FSHon 01-01-2023 FSH 4.6 mIU/mL Normal [facility] Comment on above: Result Comment: Adul t Female: Follicular phase 3.5 - 12.5 Ovulation phase 4.7 - 21.5 Luteal phase 1.7 - 7.7 Postmenopausal 25.8 - 134.8 Performed By: #### C BC #### [facility] [address] [address] [address] Kaushik Palomares LUTEINIZING HORMONE (LH)on 01-01-2023 LH 3.5 mIU/mL Normal [facility] Comment on above: Result Comment: Adul t Female: Follicular phase 2.4 - 12.6 Ovulation phase 14.0 - 95.6 Luteal phase 1.0 - 11.4 Postmenopausal 7.7 - 58.5 Performed By: #### L BCL #### [facility] [address] [place] [address] Dr. Kaushik Palomares CBC AUTO DIFFon 12-31-2022 BASO # 0.1 103/ul Normal 0.0-0.1 [facility] Comment on above: Performed By: #### C BC #### [facility] [address] [place] [address] Dr. Kaushik Palomares Basophils/100 WBC (Bld) 0.8 % Normal 0.2-2.0 [facility] Comment on above: Performed By: #### C BC #### [facility] [address] [place] [address] Dr. Kaushik Palomares EO # 0.1 103/ul Normal 0.0-0.7 [facility] Comment on above: Performed By: #### C BC #### [facility] [address] [place] [address] Dr. Kaushik Palomares Eosinophils/100 WBC (Bld) 1.7 % Normal 0.9-7.0 [facility] Comment on above: Performed By: #### C BC #### [facility] [address] [place] [address] Dr. Kaushik Palomares Erythrocyte distribution width (RBC) [Ratio] 12.8 % Normal 11.0-15.0 [facility] Comment on above: Performed By: #### C BC #### [facility] [address] [place] [address] Dr. Kaushik Palomares Hematocrit (Bld) [Volume fraction] 33.0 % Critically low 36.0-48.0 [facility] Comment on above: Performed By: #### C BC #### [facility] [address] [place] [address] Dr. Kaushik Palomares Hemoglobin (Bld) [Mass/Vol] 11.0 g/dL Critically low 12.0-16.0 [facility] Comment on above: Performed By: #### C BC #### [facility] [address] [address] [address] Kaushik Palomares IG # 0.03 10e3/ul Normal 0.00-0.03 [facility] Comment on above: Performed By: #### C BC #### [facility] [address] [place] [address] Dr. Kaushik Palomares IG % 0.5 % Normal 0.0-0.5 [facility] Comment on above: Performed By: #### C BC #### [facility] [address] [place] [address] Dr. Kaushik Palomares LYMPH # 2.4 103/ul Normal 1.2-3.8 [facility] Comment on above: Performed By: #### C BC #### [facility] [address] [place] [address] Dr. Kaushik Palomares Lymphocytes/100 WBC (Bld) 36.6 % Normal 20.5-60.0 [facility] Comment on above: Performed By: #### C BC #### [facility] [address] [place] [address] Dr. Kaushik Palomares MANUAL DIFF REQ NO Normal [facility] Comment on above: Performed By: #### C BC #### [facility] [address] [place] [address] Dr. Kaushik Palomares MCH (RBC) [Entitic mass] 29.0 pg Normal 26.7-34.0 [facility] Comment on above: Performed By: #### C BC #### [facility] [address] [place] [address] Dr. Kaushik Palomares MCHC (RBC) [Mass/Vol] 33.3 g/dL Normal 29.9-35.2 [facility] Comment on above: Performed By: #### C BC #### [facility] [address] [place] [address] Dr. Kaushik Palomares MCV (RBC) [Entitic vol] 87.1 fL Normal 81.0-99.0 [facility] Comment on above: Performed By: #### C BC #### [facility] [address] [address] [address] Kaushik Palomares MONO # 0.2 103/ul Critically low 0.3-0.8 [facility] Comment on above: Performed By: #### C BC #### [facility] [address] [address] [address] Kaushik Palomares Monocytes/100 WBC (Bld) 3.6 % Normal 1.7-12.0 [facility] Comment on above: Performed By: #### C BC #### [facility] [address] [address] [address] Kaushik Palomares NEUT # 3.7 103/ul Normal 1.4-6.5 [facility] Comment on above: Performed By: #### C BC #### [facility] [address] [place] [address] Dr. Kaushik Palomares Neutrophils/100 WBC (Bld) 56.8 % Normal 43.0-75.0 [facility] Comment on above: Performed By: #### C BC #### [facility] [address] [place] [address] Dr. Kaushik Palomares Platelet mean volume (Bld) [Entitic vol] 9.8 fL Normal 9.5-13.5 [facility] Comment on above: Performed By: #### C BC #### [facility] [address] [place] [address] Dr. Kaushik Palomares PLT 234 103/ul Normal 150-450 [facility] Comment on above: Performed By: #### C BC #### [facility] [address] [address] [address] Kaushik Palomares RBC 3.79 106/ul Critically low 4.20-5.40 [facility] Comment on above: Performed By: #### C BC #### [facility] [address] [address] [address] Kaushik Palomares WBC 6.5 103/ul Normal 4.0-11.0 [facility] Comment on above: Performed By: #### C BC #### [facility] [address] [place] [address] Dr. Kaushik Palomares FREE T4on 12-31-2022 Free T4 [Mass/Vol] 0.79 ng/dL Normal 0.76-1.46 [facility] Comment on above: Performed By: #### F T4 #### [facility] [address] [place] [address] Dr. Kaushik Palomares GLYCOHEMOGLOBIN A1Con 2022 ADA RECOMMENDATION SEE BELOW Normal [facility] Comment on above: Result Comment: ADA RECOMMENDED LIMIT 4.0 - 6.0 ADA THERAPEUTIC TARGET < 7.0 ACTION SUGGESTED > 7.0 Performed By: #### A 1C #### [facility] [address] [place] [address] Dr. Kaushik Palomares Glucose [Mass/Vol] 111 mg/dL Normal [facility] Comment on above: Performed By: #### A 1C #### [facility] [address] [place] [address] Dr. Kaushik Palomares HbA1c (Bld) [Mass fraction] 5.5 % Normal 4.5-6.2 [facility] Comment on above: Performed By: #### A 1C #### [facility] [address] [place] [address] Dr. Kaushik Palomares TSHon 12-31-2022 TSH 1.114 uIU/mL Normal 0.358-3.740 [facility] Comment on above: Performed By: #### C BC #### [facility] [address] [place] [address] Dr. Kaushik Palomares US PELVIS AND TRANSVAGon [...] SUGEY MACDONALD Date: 2022-11-26 15:58 Normal The [facility] XR SACRUM_COCCYXon 3 XR SACRUM_COCCYX EXAMINATION: XR [...] SUGEY MACDONALD Date: 2022-11-08 10:01 Normal The [facility] PAP ACOG PANEL 2: 30 to 65on 11-05-2022 . . Normal [facility] Comment on above: Result Comment: Perf ormed at: WB Performed By: #### C BC #### [facility] [address] [address] [address] Kaushik Palomares Age Gdln ACOG Testing 30-65 Normal [facility] Comment on above: Performed By: #### C BC #### [facility] [address] [address] [address] Kaushik Palomares DIAGNOSIS: Comment Normal [facility] Comment on above: Result Comment: NEGA TIVE FOR INTRAEPITHELIAL LESION OR MALIGNANCY. Performed at: WB Performed By: #### C BC #### [facility] [address] [address] [address] Kaushik Plaomares HPV Aptima Negative Normal Negative [facility] Comment on above: Result Comment: This nucleic acid amplification test detects fourteen high-risk HPV types (16,18,31,33,35,39,45,51,52,56,58,59,66,68) without differentiation. Performed at: =G Performed By: #### C BC #### [facility] [address] [address] [address] Kaushik Palomares HPV Genotype Reflex Comment Normal [facility] Comment on above: Result Comment: Crit ermaico not met, HPV Genotype not performed. Performed at: WB Performed By: #### C BC #### [facility] [address] [place] [address] Dr. Kaushik Palomares Methodology: Comment Normal [facility] Comment on above: Result Comment: This liquid based ThinPrep(R) pap test was screened with the use of an image guided system. Performed at: WB Performed By: #### C BC #### [facility] [address] [place] [address] Dr. Kaushik Palomares Note: Comment Normal [facility] Comment on above: Result Comment: [...] WB Performed By: #### C BC #### [facility] [address] [place] [address] Dr. Kaushik Palomares Performed by: Comment Normal [facility] Comment on above: Result Comment: Robi Graham, Ctc Operator (ASCP) Performed at: WB Performed By: #### C BC #### [facility] [address] [place], [place] [id number] Dr. Kaushik Palomares Specimen adequacy: Comment Normal [facility] Comment on above: Result Comment: Sati sfactory for evaluation. Endocervical and/or squamous metaplastic cells (endocervical component) are present. Performed at: WB Performed By: #### C BC #### [facility] [address] [place] [address] Dr. Kaushik Palomares COVID/FLU RT-PCRon SARS-CoV-2 (COVID-19) RNA SURI+probe Ql (Unsp spec) Negative [facility] [employer] Other COVID/FLU RT-PCR Negative [facility] [employer] Other HCG-BETA SUBUNIT QUANTon hCG,Beta Subunit,Qnt,Serum <1 Normal [facility] Comment on above: Result Comment: Fema le (Non-) 0 - 5 (Postmenopausal) 0 - 8 . Female () Weeks of Gestation 3 6 - 71 4 10 - 750 5 167 - 0514 6 370 - 99488 7 [phone] -[phone] 8 84534 -[phone] 9 91403 -727258 10 51200 -825249 12 74775 -[phone] 14 36831 - 12342 15 83694 - 38429 16 9306 - 29334 17 4880 - 37604 18 7586 - 11870 Rg ECLIA methodology Performed By: #### H CGSUB #### [facility] [address] [place] [address] Dr. Kaushik Palomares T4 LABCORPon 01-22-2022 T4 [Mass/Vol] 7.8 ug/dL Normal 4.5-12.0 [facility] Comment on above: Performed By: #### T 4LC #### [facility] [address] [place] [id number] Dr. Kaushik Palomares CBC AUTO DIFFon 01-21-2022 BASO # 0.1 103/ul Normal 0.0-0.1 [facility] Comment on above: Performed By: #### C BC #### [facility] [address] [place] [address] Dr. Kaushik Palomares Basophils/100 WBC (Bld) 0.6 % Normal 0.2-2.0 [facility] Comment on above: Performed By: #### C BC #### [facility] [address] [place] [address] Dr. Kaushik Palomares EO # 0.1 103/ul Normal 0.0-0.7 [facility] Comment on above: Performed By: #### C BC #### [facility] [address] [place] [address] Dr. Kaushik Palomares Eosinophils/100 WBC (Bld) 1.2 % Normal 0.9-7.0 [facility] Comment on above: Performed By: #### C BC #### [facility] [address] [place] [address] Dr. Kaushik Palomares Erythrocyte distribution width (RBC) [Ratio] 13.3 % Normal 11.0-15.0 [facility] Comment on above: Performed By: #### C BC #### [facility] [address] [place] [address] Dr. Kaushik Palomares Hematocrit (Bld) [Volume fraction] 40.0 % Normal 36.0-48.0 [facility] Comment on above: Performed By: #### C BC #### [facility] [address] [place] [address] Dr. Kaushik Palomares Hemoglobin (Bld) [Mass/Vol] 12.7 g/dL Normal 12.0-16.0 [facility] Comment on above: Performed By: #### C BC #### [facility] [address] [place] [address] Dr. Kaushik Palomares IG # 0.02 10e3/ul Normal 0.00-0.03 [facility] Comment on above: Performed By: #### C BC #### [facility] [address] [place] [address] Dr. Kaushik Palomares IG % 0.2 % Normal 0.0-0.5 [facility] Comment on above: Performed By: #### C BC #### [facility] [address] [place] [address] Dr. Kaushik Palomares LYMPH # 3.0 103/ul Normal 1.2-3.8 [facility] Comment on above: Performed By: #### C BC #### [facility] [address] [place] [address] Dr. Kaushik Palomares Lymphocytes/100 WBC (Bld) 32.9 % Normal 20.5-60.0 [facility] Comment on above: Performed By: #### C BC #### [facility] [address] [place] [address] Dr. Kaushik Palomares MANUAL DIFF REQ NO Normal [facility] Comment on above: Performed By: #### C BC #### [facility] [address] [place] [address] Dr. Kaushik Palomares MCH (RBC) [Entitic mass] 28.5 pg Normal 26.7-34.0 [facility] Comment on above: Performed By: #### C BC #### [facility] [address] [place] [address] Dr. Kaushik Palomares MCHC (RBC) [Mass/Vol] 31.8 g/dL Normal 29.9-35.2 [facility] Comment on above: Performed By: #### C BC #### [facility] [address] [place] [address] Dr. Kaushik Palomares MCV (RBC) [Entitic vol] 89.7 fL Normal 81.0-99.0 [facility] Comment on above: Performed By: #### C BC #### [facility] [address] [place] [address] Dr. Kaushik Palomares MONO # 0.5 103/ul Normal 0.3-0.8 [facility] Comment on above: Performed By: #### C BC #### [facility] [address] [place] [address] Dr. Kaushik Palomares Monocytes/100 WBC (Bld) 5.1 % Normal 1.7-12.0 [facility] Comment on above: Performed By: #### C BC #### [facility] [address] [place] [address] Dr. Kaushik Palomares NEUT # 5.4 103/ul Normal 1.4-6.5 [facility] Comment on above: Performed By: #### C BC #### [facility] [address] [place] [address] Dr. Kaushik Palomares Neutrophils/100 WBC (Bld) 60.0 % Normal 43.0-75.0 [facility] Comment on above: Performed By: #### C BC #### [facility] [address] [address] [address] Kaushik Palomares Platelet mean volume (Bld) [Entitic vol] 9.3 fL Critically low 9.5-13.5 [facility] Comment on above: Performed By: #### C BC #### [facility] [address] [address] [address] Kaushik Palomares PLT 221 103/ul Normal 150-450 [facility] Comment on above: Performed By: #### C BC #### [facility] [address] [address] [address] Kaushik Palomares RBC 4.46 106/ul Normal 4.20-5.40 [facility] Comment on above: Performed By: #### C BC #### [facility] [address] [place] [address] Dr. Kaushik Palomares WBC 9.0 103/ul Normal 4.0-11.0 [facility] Comment on above: Performed By: #### C BC #### [facility] [address] [place] [address] Dr. Kaushik Palomares GLYCOHEMOGLOBIN A1Con 2021 ADA RECOMMENDATION SEE BELOW Normal [facility] Comment on above: Result Comment: ADA RECOMMENDED LIMIT 4.0 - 6.0 ADA THERAPEUTIC TARGET < 7.0 ACTION SUGGESTED > 7.0 Performed By: #### C BC #### [facility] [address] [place] [address] Dr. Kaushik Palomares Glucose [Mass/Vol] 94 mg/dL Normal [facility] Comment on above: Performed By: #### C BC #### [facility] [address] [address] [address] Kaushik Palomares HbA1c (Bld) [Mass fraction] 4.9 % Normal 4.5-6.2 [facility] Comment on above: Performed By: #### C BC #### [facility] [address] [place] [address] Dr. Kaushik Paloamres LIPID PROFILEon 01-21-2022 CHOL-HDL RATIO NORM SEE BELOW Normal [facility] Comment on above: Result Comment: 3.3 - 4.4 LOW RISK 4.4 - 7.1 AVERAGE RISK 7.1 - 11.0 MODERATE RISK >11.0 HIGH RISK Performed By: #### L IPID, CMP, TSH #### [facility] [address] [address] [address] Kaushik Palomares Cholesterol [Mass/Vol] 168 mg/dL Normal <=200 [facility] Comment on above: Performed By: #### L IPID, CMP, TSH #### [facility] [address] [address] [address] Kaushik Palomares Cholesterol in HDL [Mass/Vol] 41 mg/dL Normal 40-60 [facility] Comment on above: Performed By: #### L IPID, CMP, TSH #### [facility] [address] [address] [address] Kaushik Palomares Cholesterol in LDL [Mass/Vol] 90.2 mg/dL Normal [facility] Comment on above: Performed By: #### L IPID, CMP, TSH #### [facility] [address] [address] [address] Kaushik Palomares Cholesterol.total/Mali sterol in HDL [Mass ratio] 4.1 {ratio} Normal [facility] Comment on above: Performed By: #### L IPID, CMP, TSH #### [facility] [address] [address] [address] Kaushik Palomares HDL NORMAL > or = 60 mg/dl - LO W CARDIOVASCULAR RISK <40 mg/dl - HIGH CARDIOVASCULAR RISK Normal [facility] Comment on above: Performed By: #### L IPID, CMP, TSH #### [facility] [address] [address] [address] Kaushik Palomares LDL CALC NORMAL SEE BELOW Normal [facility] Comment on above: Result Comment: <100 mg/dl OPTIMAL 100 - 129 mg/dl NEAR OR ABOVE OPTIMAL 130 - 159 mg/dl BORDERLINE HIGH 160 - 189 mg/dl HIGH >190 mg/dl VERY HIGH Performed By: #### L IPID, CMP, TSH #### [facility] [address] [address] [address] Kaushik Palomares Triglyceride [Mass/Vol] 184 mg/dL Critically high <=150 [facility] Comment on above: Performed By: #### L IPID, CMP, TSH #### [facility] [address] [address] [address] Kaushik Palomares VLDL CALC 36.8 mg/dL Normal [facility] Comment on above: Performed By: #### L IPID, CMP, TSH #### [facility] [address] [address] [address] Kaushik Palomares MICROALBUMIN, RAND URon - mALB 2.0 mg/L Normal <=30.0 [facility] Comment on above: Performed By: #### C BC #### [facility] [address] [place] [address] Dr. Kaushik Palomares PROF 14(COMP METB)on 022 Albumin [Mass/Vol] 3.7 g/dL Normal 3.4-5.0 [facility] Comment on above: Performed By: #### L IPID, CMP, TSH #### [facility] [address] [place] [address] Dr. Kaushik Palomares Albumin/Globulin [Mass ratio] 0.9 {ratio} Normal [facility] Comment on above: Performed By: #### L IPID, CMP, TSH #### [facility] [address] [place] [address] Dr. Kaushik Palomares ALP [Catalytic activity/Vol] 53 U/L Normal 46-116 The [facility] Comment on above: Performed By: #### L IPID, CMP, TSH #### [facility] [address] [place] [address] Dr. Kaushik Palomares ALT [Catalytic activity/Vol] 44 U/L Normal 14-59 [facility] Comment on above: Performed By: #### L IPID, CMP, TSH #### [facility] [address] [place] [address] Dr. Kaushik Palomares Anion gap [Moles/Vol] 6.8 mmol/L Normal [facility] Comment on above: Performed By: #### L IPID, CMP, TSH #### [facility] [address] [address] [address] Kaushik Palomares AST [Catalytic activity/Vol] 22 U/L Normal 15-37 [facility] Comment on above: Performed By: #### L IPID, CMP, TSH #### [facility] [address] [address] [address] Kaushik Palomares Bilirubin [Mass/Vol] 0.3 mg/dL Normal 0.2-1.0 [facility] Comment on above: Performed By: #### L IPID, CMP, TSH #### [facility] [address] [address] [address] Kaushik Palomares Calcium [Mass/Vol] 9.2 mg/dL Normal 8.5-10.1 [facility] Comment on above: Performed By: #### L IPID, CMP, TSH #### [facility] [address] [place] [address] Dr. Kaushik Palomares Chloride [Moles/Vol] 102 mmol/L Normal 98-107 [facility] Comment on above: Performed By: #### L IPID, CMP, TSH #### [facility] [address] [address] [address] Kaushik Palomares CO2 [Moles/Vol] 31.4 mmol/L Normal 21.0-32.0 [facility] Comment on above: Performed By: #### L IPID, CMP, TSH #### [facility] [address] [address] [address] Kaushik Palomares Creatinine [Mass/Vol] 0.71 mg/dL Normal 0.55-1.02 [facility] Comment on above: Performed By: #### L IPID, CMP, TSH #### [facility] [address] [place] [address] Dr. Kaushik Palomares EGFR-AF TRISTANIAN >60 Normal >=60 [facility] Comment on above: Performed By: #### L IPID, CMP, TSH #### [facility] [address] [address] [address] Kaushik Palomares EGFR-NON AF TRISTANIAN >60 Normal >=60 [facility] Comment on above: Performed By: #### L IPID, CMP, TSH #### [facility] [address] [address] [address] Kaushik Palomares Globulin (S) [Mass/Vol] 4.2 g/dL Normal [facility] Comment on above: Performed By: #### L IPID, CMP, TSH #### [facility] [address] [address] [address] Kaushik Palomares Glucose [Mass/Vol] 93 mg/dL Normal 74-106 [facility] Comment on above: Performed By: #### L IPID, CMP, TSH #### [facility] [address] [place] [address] Dr. Kaushik Palomares Potassium [Moles/Vol] 4.2 mmol/L Normal 3.5-5.1 [facility] Comment on above: Performed By: #### L IPID, CMP, TSH #### [facility] [address] [place] [address] Dr. Kaushik Palomares Protein [Mass/Vol] 7.9 g/dL Normal 6.4-8.2 [facility] Comment on above: Performed By: #### L IPID, CMP, TSH #### [facility] [address] [place] [address] Dr. Kaushik Palomares Sodium [Moles/Vol] 136 mmol/L Normal 136-145 [facility] Comment on above: Performed By: #### L IPID, CMP, TSH #### [facility] [address] [place] [address] Dr. Kaushik Palomares Urea nitrogen [Mass/Vol] 11.0 mg/dL Normal 7.0-18.0 [facility] Comment on above: Performed By: #### L IPID, CMP, TSH #### [facility] [address] [place] [address] Dr. Kaushik Palomares Urea nitrogen/Creatinine [Mass ratio] 15.5 mg/mg Normal [facility] Comment on above: Performed By: #### L IPID, CMP, TSH #### [facility] [address] [place] [address] Dr. Kaushik Palomares TSHon 01-21-2022 TSH 1.298 uIU/mL Normal 0.358-3.740 [facility] Comment on above: Performed By: #### C BC #### [facility] [address] [address] [address] Kaushik Palomares TSH RANGE SEE BELOW Normal [facility] Comment on above: Result Comment: <0.3 4 UIU/ml HYPERTHYROID 0.34-5.60 UIU/ml EUTHYROID >5.60 UIU/ml HYPOTHYROID Performed By: #### C BC #### [facility] [address] [address] [address] Kaushik Palomares COVID Quick Testingon 2020 Result Negative [facility] Other Quick Strepon 06-17-2021 S. pyogenes Org specific cx Ql (Throat) Negative [employer] Other Quick Strep [facility] Other Urinalysis - AUTOMATEDon Appearance (U) cloudy [employer] Other Bilirubin Ql (U) Negative [employer] Other Color (U) yellow [employer] Other Glucose Ql (U) Negative [employer] Other Hemoglobin Ql (U) large [employer] Other Ketones Ql (U) Negative [employer] Other Leukocyte esterase Test strip Ql (U) trace [facility] Other Nitrite Ql (U) Positive [employer] Other pH (U) 5.5 [pH] [facility] Other Protein Ql (U) 100 [employer] Other Specific gravity (U) [Rel density] 1.025 [facility] Other Urobilinogen (U) [Mass/Vol] 0.2 mg/dL [facility] [employer] Other [facility]inal[facility] - [facility]OMATED [facility] [employer] Other Urine Cultureon 05-31-2021 Urine Culture >100,000 [facility] [employer] Other Urine Culture <16 [facility] [employer] [employer] Other Urine Culture >16 [facility] [employer] Other Urine Culture <4 [facility] [employer] Other Urine Culture 8 [facility] [employer] [employer] Other Urine Culture <2 [facility] [employer] [employer] Other Urine Culture <1 [facility] [employer] [employer] Other Urine Culture >2 [facility] [place] [employer] Other Urine Culture <0.5 [facility] [place] [employer] Other Urine Culture >8 [facility] [employer] [employer] Other Urine Culture >4 [facility] [employer] Other Urine Culture <32 [facility] [employer] [employer] Other Urine Culture >2/[address] [facility] [employer] Other Vital Signs Date Time Vital Sign Value 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 11-26-2023 08:40-0400 Body height 162.56 cm ROSITA Marc Work Phone: [facility] 11-26-2023 08:40-0400 Body mass index (BMI) [Ratio] 52.9 kg/m2 ROSITA Marc Work Phone: [facility] 11-26-2023 08:40-0400 Body weight 139.79 kg ROSITA Marc Work Phone: [facility] 11-26-2023 08:40-0400 Diastolic blood pressure 79 mm[Hg] ROSITA Barclayrbacher Work Phone: [facility] 11-26-2023 08:40-0400 Heart rate 97 /min IP TECHNOLOGY TRANSACTIONS ATTORNEYJosé Miguel ThaoManisha Denyrbacher Work Phone: [facility] 11-26-2023 08:40-0400 SaO2% (BldA) [Mass fraction] 99 % [employer] TECHNOLOGY TRANSACTIONS ATTORNEYJosé Miguel ColladoManisha Charlyacher Work Phone: [facility] 11-26-2023 08:40-0400 Systolic blood pressure 131 mm[Hg] IP TECHNOLOGY TRANSACTIONS ATTORNEYJosé Miguel Barclayrbacher Work Phone: [facility] 11-03-2023 14:06-0400 Body height 162.56 cm IP TECHNOLOGY TRANSACTIONS ATTORNEYJosé Miguel ColladoManisha Charlyacher Work Phone: [facility] 11-03-2023 14:06-0400 Body mass index (BMI) [Ratio] 53.1 kg/m2 [employer] TECHNOLOGY TRANSACTIONS ATTORNEYJosé Miguel Parksacher Work Phone: [facility] 11-03-2023 14:06-0400 Body weight 140.61 kg IP TECHNOLOGY TRANSACTIONS ATTORNEYJosé Miguel Parksacher Work Phone: [facility] 11-03-2023 14:06-0400 Diastolic blood pressure 78 mm[Hg] ROSITA Colladofer Charlyacher Work Phone: [facility] 11-03-2023 14:06-0400 Heart rate 105 /min IP TECHNOLOGY TRANSACTIONS ATTORNEYJosé Miguel Parksacher Work Phone: [facility] 11-03-2023 14:06-0400 SaO2% (BldA) [Mass fraction] 98 % IP TECHNOLOGY TRANSACTIONS ATTORNEYJosé Miguel ColladoManisha Charlyacher Work Phone: [facility] 11-03-2023 14:06-0400 Systolic blood pressure 118 mm[Hg] ROSITA Barclayrbacher Work Phone: [facility] 10-08-2023 10:50-0500 Body height 162.56 cm ROSITA Barclayrbacher Work Phone: [facility] 10-08-2023 10:50-0500 Body weight 139.25 kg IP TECHNOLOGY TRANSACTIONS ATTORNEYJosé Miguel Barclayrbacher Work Phone: [facility] 10-01-2023 09:20-0500 Body height 162.56 cm IP TECHNOLOGY TRANSACTIONS ATTORNEYJosé Miguel Barclayrbacher Work Phone: [facility] 10-01-2023 09:20-0500 Body mass index (BMI) [Ratio] 53.6 kg/m2 [employer] TECHN[employer]Y TRANSACTIONS ATTORNEYJosé Miguel Barclayrbacher Work Phone: [facility] 10-01-2023 09:20-0500 Body weight 141.69 kg IP TECHNOLOGY TRANSACTIONS ATTORNEYJosé Miguel Barclayrbacher Work Phone: [facility] 10-01-2023 09:20-0500 Diastolic blood pressure 75 mm[Hg] IP TECHNOLOGY TRANSACTIONS ATTORNEYJosé Miguel Barclayrbacher Work Phone: [facility] 10-01-2023 09:20-0500 Heart rate 85 /min IP TECHNOLOGY TRANSACTIONS ATTORNEYJosé Miguel Barclayrbacher Work Phone: [facility] 10-01-2023 09:20-0500 Respiratory rate 18 /min IP TECHNOLOGY TRANSACTIONS ATTORNEYJosé Miguel Barclayrbacher Work Phone: [facility] 10-01-2023 09:20-0500 SaO2% (BldA) [Mass fraction] 99 % IP TECHNOLOGY TRANSACTIONS ATTORNEYJosé Miguel Parksacher Work Phone: [facility] 10-01-2023 09:20-0500 Systolic blood pressure 123 mm[Hg] IP TECHNOLOGY TRANSACTIONS ATTORNEYJosé Miguel Barclayrbacher Work Phone: [facility] 09-03-2023 08:00-0500 Body height 162.56 cm IP TECHNOLOGY TRANSACTIONS ATTORNEYJosé Miguel Barclayrbacher Work Phone: [facility] 09-03-2023 08:00-0500 Body weight 138.79 kg IP TECHNOLOGY TRANSACTIONS ATTORNEYJosé Miguel Barclayrbacher Work Phone: [facility] 09-03-2023 08:00-0500 Diastolic blood pressure 78 mm[Hg] IP TECHNOLOGY TRANSACTIONS ATTORNEY Manisha Tari Work Phone: [facility] 09-03-2023 08:00-0500 Systolic blood pressure 118 mm[Hg] IP TECHNOLOGY TRANSACTIONS ATTORNEY Manisha Charlyachetad Work Phone: [facility] 08-19-2023 09:45-0500 Body height 162.56 cm Nely Cruz Other [facility] 08-13-2023 14:00-0500 Body height 162.56 cm Manisha Marc Other [facility] 08-13-2023 14:00-0500 Body mass index (BMI) [Ratio] 52.35 kg/m2 Manisha Marc Other [facility] Other 08-13-2023 14:00-0500 Body weight 138.35 kg Manisha Marc Other [facility] Other 08-13-2023 14:00-0500 Body weight 138.34 kg ROSITA Manisha Tari Work Phone: [facility] 08-13-2023 14:00-0500 Diastolic blood pressure 80 mm[Hg] Manisha Marc Other [facility] 08-13-2023 14:00-0500 SaO2% (BldA) [Mass fraction] 98 % Manisha Marc Other [facility] Other 08-13-2023 14:00-0500 Systolic blood pressure 114 mm[Hg] Manisha Marc Other [facility] 07-15-2023 07:45-0500 Body height 162.56 cm Celio Mullins Other [facility] 07-15-2023 07:45-0500 Body mass index (BMI) [Ratio] 52.98 kg/m2 Celio Mullins Other [facility] Other 07-15-2023 07:45-0500 Body weight 140.03 kg Celio Mullins Other [facility] Other 07-15-2023 07:45-0500 Body weight 140.02 kg ROSITA Colladofer Tari Work Phone: [facility] 07-15-2023 07:45-0500 Diastolic blood pressure 66 mm[Hg] Celio Mullins Other [facility] 07-15-2023 07:45-0500 Respiratory rate 18 /min Celio Mullins Other [facility] Other 07-15-2023 07:45-0500 SaO2% (BldA) [Mass fraction] 98 % Celio Mullins Other [facility] Other 07-15-2023 07:45-0500 Systolic blood pressure 112 mm[Hg] Celio Mullins Other [facility] 07-07-2023 11:15-0500 Body height 162.56 cm Michelle Ernandez Other [facility] 07-07-2023 11:15-0500 Body mass index (BMI) [Ratio] 52.69 kg/m2 Michelle Ernandez Other [facility] Other 07-07-2023 11:15-0500 Body temperature 98 [degF] Michelle Ernandez Other [facility] Other 07-07-2023 11:15-0500 Body weight 139.26 kg Michelle Oma Other [facility] Other 07-07-2023 11:15-0500 Body weight 139.25 kg ROSITA Marc Work Phone: [facility] 07-07-2023 11:15-0500 Respiratory rate 20 /min Michelle Oma Other [facility] Other 07-07-2023 11:15-0500 SaO2% (BldA) [Mass fraction] 98 % Michelle Oma Other [facility] Other 06-29-2023 10:20-0500 Body height 162.56 cm Michelle Oma Other [facility] Other 06-29-2023 10:20-0500 Body mass index (BMI) [Ratio] 53.03 kg/m2 Michelle Oma Other [facility] Other 06-29-2023 10:20-0500 Body temperature 99.7 [degF] Michelle Oma Other [facility] Other 06-29-2023 10:20-0500 Body weight 140.16 kg Michelle Oma Other [facility] Other 06-29-2023 10:20-0500 Respiratory rate 19 /min Michelle Oma Other [facility] Other 06-29-2023 10:20-0500 SaO2% (BldA) [Mass fraction] 98 % Michelle Oma Other [facility] Other 06-11-2023 15:30-0400 Body height 162.56 cm Manisha Barclayfani Other [facility] Other 06-11-2023 15:30-0400 Body mass index (BMI) [Ratio] 53.79 kg/m2 Manisha Barclayeliudmarycarmentad Other [facility] Other 06-11-2023 15:30-0400 Body weight 142.16 kg Manisha Tari Other [facility] Other 06-11-2023 15:30-0400 Diastolic blood pressure 62 mm[Hg] Manisha Barclayeliudmaryacrmentad Other [facility] Other 06-11-2023 15:30-0400 SaO2% (BldA) [Mass fraction] 99 % Manisha Barclayfani Other [facility] Other 06-11-2023 15:30-0400 Systolic blood pressure 126 mm[Hg] Manisha Keanetad Other [facility] Other 05-06-2023 13:40-0400 Body height 162.56 cm Casandra Hassan Other [facility] Other 05-06-2023 13:40-0400 Body mass index (BMI) [Ratio] 53.65 kg/m2 Casandra Hassan Other [facility] Other 05-06-2023 13:40-0400 Body temperature 98.4 [degF] Casandra Hassan Other [facility] Other 05-06-2023 13:40-0400 Body weight 141.8 kg Casandra Hassan Other [facility] Other 05-06-2023 13:40-0400 Diastolic blood pressure 81 mm[Hg] Casandra Tesfayeley Other [facility] Other 05-06-2023 13:40-0400 Respiratory rate 18 /min Casandra Tesfayeley Other [facility] Other 05-06-2023 13:40-0400 SaO2% (BldA) [Mass fraction] 95 % Casandra Hassan Other [facility] Other 05-06-2023 13:40-0400 Systolic blood pressure 134 mm[Hg] Casandra Sonya Other [facility] Other 04-30-2023 08:30-0400 Body height 162.56 cm Manisha Marc Other [facility] Other 04-30-2023 08:30-0400 Body mass index (BMI) [Ratio] 53.86 kg/m2 Manisha Marc Other [facility] Other 04-30-2023 08:30-0400 Body weight 142.34 kg Manisha Marc Other [facility] Other 04-30-2023 08:30-0400 Diastolic blood pressure 82 mm[Hg] Manisha Marc Other [facility] Other 04-30-2023 08:30-0400 SaO2% (BldA) [Mass fraction] 100 % Manisha Marc Other [facility] Other 04-30-2023 08:30-0400 Systolic blood pressure 120 mm[Hg] Manisha Barclayeliudgareth Other [facility] Other 04-29-2023 07:00-0400 Body height 162.56 cm Nely Zolvers Other [facility] Other 04-29-2023 07:00-0400 Body mass index (BMI) [Ratio] 54.41 kg/m2 Nely Zolvers Other [facility] Other 04-29-2023 07:00-0400 Body weight 143.79 kg Nely BISciencet Other [facility] Other 03-25-2023 13:45-0400 Body height 162.56 cm Celio Babelway Other [facility] Other 03-25-2023 13:45-0400 Body mass index (BMI) [Ratio] 55.45 kg/m2 Anhelo Other [facility] Other 03-25-2023 13:45-0400 Body weight 146.56 kg [employer] Other [facility] Other 03-25-2023 13:45-0400 Diastolic blood pressure 57 mm[Hg] Anhelo Other [facility] Other 03-25-2023 13:45-0400 Respiratory rate 18 /min Anhelo Other [facility] Other 03-25-2023 13:45-0400 SaO2% (BldA) [Mass fraction] 97 % Anhelo Other [facility] Other 03-25-2023 13:45-0400 Systolic blood pressure 106 mm[Hg] Celio Mullins Other [facility] Other 02-11-2023 12:15-0400 Body height 163.83 cm Casandra Hassan Other [facility] Other 02-11-2023 12:15-0400 Body mass index (BMI) [Ratio] 54.88 kg/m2 Casandra Hassan Other [facility] Other 02-11-2023 12:15-0400 Body temperature 98 [degF] Casandra Hassan Other [facility] Other 02-11-2023 12:15-0400 Body weight 147.33 kg Casandra Hassan Other [facility] Other 02-11-2023 12:15-0400 Diastolic blood pressure 85 mm[Hg] Casandra Hassan Other [facility] Other 02-11-2023 12:15-0400 Respiratory rate 18 /min Casandra Hassan Other [facility] Other 02-11-2023 12:15-0400 SaO2% (BldA) [Mass fraction] 98 % Casandra Hassan Other [facility] Other 02-11-2023 12:15-0400 Systolic blood pressure 128 mm[Hg] Casandra Hassan Other [facility] Other 07-13-2022 11:15-0500 Body height 163.83 cm Michelle Ernandez Other [facility] Other 07-13-2022 11:15-0500 Body mass index (BMI) [Ratio] 51.54 kg/m2 Michelle Oma Other [facility] Other 07-13-2022 11:15-0500 Body temperature 96.6 [degF] Michelle Oma Other [facility] Other 07-13-2022 11:15-0500 Body weight 138.35 kg Michelle Oma Other [facility] Other 07-13-2022 11:15-0500 Respiratory rate 18 /min Michelle Oma Other [facility] Other 07-13-2022 11:15-0500 SaO2% (BldA) [Mass fraction] 96 % Michelle Oma Other [facility] Other 07-06-2021 13:00-0500 Body height 163.83 cm Michelle Oma Other [facility] Other 07-06-2021 13:00-0500 Body mass index (BMI) [Ratio] 49 kg/m2 Michelle Oma Other [facility] Other 07-06-2021 13:00-0500 Body temperature 97.5 [degF] Michelle Oma Other [facility] Other 07-06-2021 13:00-0500 Body weight 131.54 kg Michelle Oma Other [facility] Other 07-06-2021 13:00-0500 SaO2% (BldA) [Mass fraction] 96 % Michelle Oma Other [facility] Other 06-17-2021 11:00-0400 Body height 163.83 cm Michelle Oma Other [facility] Other 06-17-2021 11:00-0400 Body mass index (BMI) [Ratio] 49.68 kg/m2 Michelle Oma Other [facility] Other 06-17-2021 11:00-0400 Body temperature 98.3 [degF] Michelle Oma Other [facility] Other 06-17-2021 11:00-0400 Body weight 133.36 kg Michelle Oma Other [facility] Other 06-17-2021 11:00-0400 Respiratory rate 18 /min Michelle Oma Other [facility] Other 06-17-2021 11:00-0400 SaO2% (BldA) [Mass fraction] 96 % Michelle Oma Other [facility] Other 05-31-2021 13:50-0400 Body height 163.83 cm Michelle Oma Other [facility] Other 05-31-2021 13:50-0400 Body mass index (BMI) [Ratio] 50.36 kg/m2 Michelle Oma Other [facility] Other 05-31-2021 13:50-0400 Body temperature 97.8 [degF] Michelle Oma Other [facility] Other 05-31-2021 13:50-0400 Body weight 135.17 kg Michelle Oma Other [facility] Other 05-31-2021 13:50-0400 Diastolic blood pressure 90 mm[Hg] Michelle Ernandez Other [facility] Other 05-31-2021 13:50-0400 Respiratory rate 18 /min Michelle Ernandez Other [facility] Other 05-31-2021 13:50-0400 SaO2% (BldA) [Mass fraction] 98 % Michelle Ernandez Other [facility] Other 05-31-2021 13:50-0400 Systolic blood pressure 150 mm[Hg] Michelle Ernandez Other [facility] Other Encounters Encounter Date Encounter Type Care Provider Facility Start: 04-03-2024 ambulatory Edward Richey acility:[facility] Start: 03-16-2024 End: 03-16-2024 ambulatory MELA ANDERSON Not Available Start: 01-19-2024 End: 01-19-2024 ambulatory Bud Combs MD Facility:[facility] Start: 01-01-2024 Registered Recurring ROSITA Marc Work Phone: [facility] Start: 11-26-2023 End: 11-26-2023 ambulatory ROSITA Marc Work Phone: [facility] Work Phone: Start: 11-26-2023 End: 11-26-2023 Patient encounter procedure ROSITA Marc Work Phone: [facility] Work Phone: Start: 11-03-2023 End: 11-03-2023 ambulatory ROSITA Marc Work Phone: [facility] Work Phone: Start: 11-03-2023 End: 11-03-2023 Patient encounter procedure ROSITA Marc Work Phone: [facility] Work Phone: Start: 11-03-2023 End: 11-03-2023 ambulatory TOBIAS OSCAR Not Available Start: 10-30-2023 Non-patient / Non-visit IP TECHNOLOGY TRANSACTIONS ATTORNEYJosé Miguel Marc Work Phone: [facility] Work Phone: Start: 10-08-2023 End: 10-08-2023 Patient encounter procedure ROSITA Marc Work Phone: [facility] [place] Work Phone: Start: 10-08-2023 End: 10-08-2023 ambulatory ROSITA Marc Work Phone: [facility] Work Phone: Start: 10-06-2023 Non-patient / Non-visit ROSITA Marc Work Phone: [facility] Work Phone: Start: 10-06-2023 End: 10-06-2023 ambulatory Bud Combs MD Facility: [facility] Start: 10-01-2023 End: 10-01-2023 Patient encounter procedure ROSITA Marc Work Phone: [facility] Work Phone: Start: 10-01-2023 End: 10-01-2023 ambulatory ROSITA Marc Work Phone: [facility] Work Phone: Start: 09-10-2023 Registered Recurring ROSITA Marc Work Phone: [facility] Start: 09-08-2023 End: 09-08-2023 ambulatory Bud Combs MD Facility:[facility] Start: 09-03-2023 End: 09-03-2023 Patient encounter procedure ROSITA Marc Work Phone: [facility]- Start: 08-19-2023 IBT FOR OBESITY GROU P 2-10 30M Nely Cruz [facility] Start: 08-19-2023 End: 08-19-2023 ambulatory Manisha Marc [facility] [employer] Other Start: 08-19-2023 Registered Recurring ROSITA Marc Work Phone: [facility] Work Phone: Start: 08-19-2023 End: 08-19-2023 Patient encounter procedure ROSITA Marc Work Phone: [facility] Work Phone: Start: 08-14-2023 Registered Recurring ROSITA Marc Work Phone: [facility] Start: 08-13-2023 End: 08-13-2023 ambulatory Manisha Marc Other [facility] [employer] Other Start: 08-13-2023 Office outpatient visit 15 minutes Manisha Marc [facility] Start: 08-13-2023 End: 08-13-2023 Patient encounter procedure ROSITA Marc Work Phone: [facility] Work Phone: Start: 07-24-2023 End: 07-24-2023 ambulatory MELA ANDERSON Not Available Start: 07-21-2023 End: 07-21-2023 ambulatory Bud Combs MD Facility: [facility] Start: 07-19-2023 End: 07-19-2023 ambulatory IP TECHNOLOGY TRANSACTIONS ATTORNEYJosé Miguel Marc Work Phone: [facility] Work Phone: Start: 07-19-2023 End: 07-19-2023 Patient encounter procedure ROSITA Marc Work Phone: [facility] [facility] Start: 07-15-2023 End: 07-15-2023 ambulatory Celio Mullins Other [facility] Other Start: 07-15-2023 Follow-up encounter Celio Mullins [facility] Start: 07-15-2023 End: 07-15-2023 Patient encounter procedure IP TECHNOLOGY TRANSACTIONS ATTORNEYJosé Miguel Marc Work Phone: [facility] Work Phone: Start: 07-07-2023 End: 07-07-2023 ambulatory Michelle Ernandez Other [facility] Other Start: 07-07-2023 Office outpatient visit 15 minutes Michelle Ernandez [facility] Start: 07-07-2023 End: 07-07-2023 Patient encounter procedure ORSITA Marc Work Phone: [facility] Work Phone: Start: 07-03-2023 Registered Recurring ROSITA Marc Work Phone: [facility] Start: 07-03-2023 End: 07-03-2023 Patient encounter procedure ROSITA Marc Work Phone: [facility] [place] Work Phone: Start: 07-03-2023 End: 07-03-2023 ambulatory ROSITA Marc Work Phone: [facility] Work Phone: Start: 07-01-2023 End: 07-01-2023 Patient encounter procedure IP TECHNOLOGY TRANSACTIONS ATTORNEY Manisha Marc Work Phone: [facility] [place] Work Phone: Start: 07-01-2023 End: 07-01-2023 ambulatory Manisha Marc Facility:[facility] Start: 06-29-2023 End: 06-29-2023 ambulatory Michelle Oma Other [facility] Other Start: 06-29-2023 Office outpatient visit 15 minutes Michelle Ernandez [facility] Start: 06-17-2023 Registered Recurring IP TECHNOLOGY TRANSACTIONS ATTORNEY Layla Marc Work Phone: [facility] Work Phone: Start: 06-11-2023 End: 06-11-2023 ambulatory Manisha Marc Other [facility] Other Start: 06-11-2023 Office outpatient visit 25 minutes Manisha Marc [facility] Start: 05-06-2023 End: 05-06-2023 ambulatory Casandra Hassan Other [facility] Other Start: 05-06-2023 Office outpatient visit 10 minutes Casandra Hassan [facility] Start: 05-01-2023 End: 05-01-2023 ambulatory Manisha Marc Other [facility] Other Start: 05-01-2023 Telephone encounter Manisha Rico her [facility] Start: 04-30-2023 End: 04-30-2023 ambulatory Manisha Marc Other [facility] Other Start: 04-30-2023 Encounter for genera l adult medical examination without abnormal findings Manisha Tari [facility] Start: 04-30-2023 Periodic preventive med est patient 18-39 yrs Manisha Tari [facility] Start: 04-29-2023 ([facility]NI) WMN Initial Provider Nely Cruz [facility] Start: 04-29-2023 End: 04-29-2023 ambulatory Nely Cruz Other [facility] Other Start: 03-25-2023 End: 03-25-2023 ambulatory Celiomary Mullins Other [facility] Other Start: 03-25-2023 Nutrition therapy Celio Harpreet [facility] Start: 03-25-2023 Telephone encounter Celio Mullins [facility] Start: 03-14-2023 End: 03-14-2023 ambulatory Nely Cruz Other [facility] Other Start: 03-14-2023 Telephone encounter Nely Cruz [facility] Start: 02-11-2023 End: 02-11-2023 ambulatory Casandra Hassan Other [facility] Other Start: 02-11-2023 Office outpatient visit 15 minutes Casandra Hassan [facility] Start: 12-31-2022 End: 01-01-[address] TOBIAS OSCAR . Facility:[facility] Start: 11-26-2022 End: 11-27-[address] TOBIAS OSCAR . Facility:[facility] Start: 11-08-2022 End: 11-09-[address] THADDEUS ROD Facility:[facility] Start: 10-28-2022 End: 10-28-[address] TOBIAS OSCAR . Facility:[facility] Start: 07-13-2022 End: 07-13-2022 ambulatory Michelle Ernandez Other [facility] Other Start: 07-13-2022 Office outpatient visit 15 minutes Michelle Oma [facility] Start: 03-07-2022 End: 03-08-[address] THADDEUS ROD Facility:[facility] Start: 01-25-2022 Encounter for genera l adult medical examination without abnormal findings DR THADDEUS ROD [facility] Start: 01-21-2022 End: 01-22-[address] THADDEUS ROD Facility:[facility] Start: 01-21-2022 End: 01-22-2022 Encounter for general adult medical examination without abnormal findings DR THADDEUS ROD Facility:[facility] Start: 07-06-2021 End: 07-06-2021 ambulatory Michelle Oma Other [facility] Other Start: 07-06-2021 Office outpatient visit 15 minutes Michelle Oma [facility] Start: 06-17-2021 Office outpatient visit 15 minutes Michelle Oma [facility] Start: 05-31-2021 Office outpatient visit 25 minutes Michelle Oma [facility] Start: 08-27-2018 End: 08-27-2018 ambulatory BRENT KINNEY Facility:[facility] Procedures Date Procedure Procedure Detail Performing Clinician Start: 10-08-2023 MRI of head ROSITA Marc Work Phone: Start: 05-31-2021 Piperacillin/tazobactam Michelle Ernandez Other Start: 08-27-2018 extraction, erupted tooth or exposed root (elevation and/or forceps removal) BRENT TROCONIS Start: 08-27-2018 removal of impacted tooth - soft tissue BRENT TROCONIS Start: 08-27-2018 Urine test visual color cmprsn meths BRENT TROCONIS Plan of Treatment Date Care Activity Detail Author Comprehensive metabo lic 2000 panel - Serum or Plasma [facility] enter Holter monitor study [facility] Immunizations Immunization Date Immunization Notes Care Provider Lillie rogers 03-03-2021 Do not use COVID-19 Pfizer 2 dose Manisha Marc Other [facility] 02-10-2021 Do not use COVID-19 Pfizer 2 dose Manisha Tari Other [facility] 08-03-2018 Toradol per 15 mg Michelle Sofia ond Other [facility] Other Payers Date Payer Category Payer Self-pay [id number] 2022 Self-pay [id number] 2022 Private Health Insurance 1991 Unknown [id number] 2.16.840.1.107136.3.579.2. 732 1991 Unknown [id number] 2.16.840.1.916803.3.579.2. 593 1991 Unknown [id number] 2.16.840.1.106933.3.579.2. 593 1991 Unknown [id number] 2.16.840.1.630083.3.579.2. 593 1991 Unknown [id number] 2.16.840.1.127339.3.579.2. 593 1991 Unknown [id number] 2.16.840.1.804717.3.579.2. 593 1991 Unknown [id number] 2.16.840.1.982645.3.579.2. 593 1991 Unknown [id number] 2.16.840.1.620572.3.579.2. 196 1991 Unknown [id number] 2.16.840.1.052890.3.579.2. 196 1991 Unknown [id number] 2.16.840.1.389925.3.579.2. 196 1991 Unknown [id number] 2.16.840.1.816698.3.579.2. 196 1991 Unknown [id number] 2.16.840.1.267907.3.579.2. 1259 1991 Unknown [id number] 2.16.840.1.631113.3.579.2. 1259 1991 Unknown [id number] 2.16.840.1.733087.3.579.2. 1259 1959 Medicaid [id number] 1959 Unknown [id number] Unknown [place] [id number] Unknown [id number] 2.16.840.1.691881.3.579.2. 531 Unknown [id number] 2.16.840.1.546959.3.579.2. 531 Unknown [id number] 2.16.840.1.520448.3.579.2. 531 Unknown [id number] 2.16.840.1.661323.3.579.2. 531 Unknown [id number] 2.16.840.1.662800.3.579.2. 531 Unknown [id number] 2.16.840.1.566771.3.579.2. 531 Unknown [id number] 2.16.840.1.947613.3.579.2. 531 Social History Date Type Detail Facility Unknown if ever smoked [facility] Other Sex Assigned At Sex Assigned At Bir th [facility] Other Start: 12-07-2021 End: 11-26-2023 Tobacco smoking status ALIS Never smoked tobacco (finding) [facility] Start: 1990 Sex Assigned At Female F [facility] Clinical Notes 05-31-2021 to 08-19-2023 Note [...] (D) Plate method for meal planning ; [employer] [facility] Other 12-27-2023 Evaluation note* Encounter Date Diagnosis [...] You have been given relevant education handouts. [facility] Other 11-28-2023 Evaluation note* Encounter Date Diagnosis [...] voice recognition software. 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 Jun, Dietary surveillance and counseling (ICD-10 - [...] metformin 1000 mg total daily, managed by [employer] Jun, Asthma (ICD-10 - J45.909) Jun, Migraine (ICD-10 - G43.909) Jun, Primary hypertension (ICD-10 - I10) Currently on pharmacotherapy Potential for overtreatment given lightheadedness Jun, Other An additional 9 minutes was spent counseling the patient on behavior modification including proper nutrition and physical activity. [facility] Other 11-20-2023 Evaluation note* Encounter Date Diagnosis [...] until you feel better. You may take oziz-rig-mujagkl Imodium for diarrhea as needed. Avoid dairy foods as well as greasy fried foods. Follow-up with your physician if no improvement in 2 to 3 days. May return to work on Jun, Diarrhea, unspecified type (ICD-10 - R19.7) Diarrhea: adult home care material was printed [facility] Other 11-12-2023 Evaluation note* Encounter Date Diagnosis [...] to 3-day Jun, Bronchitis (ICD-10 - J40) [facility] Other 10-25-2023 Evaluation note* Encounter Date Diagnosis Assessment Notes Treatment Notes Treatment Clinical Notes May, Degenerative lumbar disc (ICD-10 - M51.36) L4-5 Pt would like a referral to pain management regarding her chronic back pain. Her last x-ray of the lumbar spine was completed 10/2022 at [facility]--reviewed and in scanned documents. Referral placed. [...] disorder (ICD-10 - F31.81) Referral placed to [facility] for medication mangement. [facility] Other 09-19-2023 Evaluation note* Encounter Date Diagnosis Assessment Notes Treatment Notes Treatment Clinical Notes Apr, Exposure to head lice (ICD-10 - Z20.7) Discussed with patient exam is without any signs of current lice infection. May return to work tomorrow. Patient completed next treatment yesterday. Patient verbalized understanding. [facility] Other 09-14-2023 Evaluation note* Encounter Date Diagnosis Assessment Notes Treatment Notes Treatment Clinical Notes Apr, Primary hypertension (ICD-10 - I10) [facility] Other 09-13-2023 Evaluation note* Encounter Date Diagnosis [...] (ICD-10 - R73.01) Will obtain records from [facility] for most recent labs. Patient is [...] Low back pain, unspecified (ICD-10 - M54.50) [facility] Other 09-12-2023 Evaluation note* Encounter Date Diagnosis [...] 2) Aim for < 45 g carb/meal [facility] Other 08-08-2023 Evaluation note* Encounter Date Diagnosis [...] voice recognition software. 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 Mar, Dietary surveillance and counseling (ICD-10 - [...] as sweet tea, replace ice cream with Singaporean yogurt, use protein shake in the a.m. [...] with the patient, and documenting clinical information. [facility] Other 06-27-2023 Evaluation note* Encounter Date Diagnosis [...] 7 days, sooner if significantly worsening symptoms. [facility] Other 11-26-2022 Evaluation note* Encounter Date Diagnosis [...] 3 days. Off work today and tomorrow [facility] Other 11-19-2021 Evaluation note* Encounter Date Diagnosis [...] Patient care instructions given in writting by [facility] document. [facility] Other 10-31-2021 Evaluation note* Encounter Date Diagnosis [...] Patient care instructions given in writting by [facility] document. [facility] Other 10-14-2021 Evaluation note* Encounter Date Diagnosis Assessment Notes Treatment Notes Treatment Clinical Notes May, Dysuria (ICD-10 - R30.0) May, Urinary tract infection, site not specified (ICD-10 - N39.0) May, Hematuria, unspecified (ICD-10 - R31.9) [facility] Other Evaluation noteNo InformationNort [employer] Other evaluation noteNo assessment information available [facility] Work Phone: Evaluation note* Diagnosis Onset Date Resolution Status Dietary surveillance and counseling acute Exercise counseling acute Food insecurity acute PCOS (polycystic ovarian syndrome) acute Prediabetes acute Severe obesity (BMI >= 40) a melvin [facility] Work Phone: Evaluation note* Diagnosis Onset Date Resolution Status Dietary surveillance and counseling acute Exercise counseling acute Food insecurity acute PCOS (polycystic ovarian syndrome) acute Prediabetes acute Severe obesity (BMI >= 40) a cute Lightheadedness acute Menorrhagia acute Palpitations acute [facility] Work Phone: evaluation note* Diagnosis Onset Date Resolution Status Dietary surveillance and counseling acute Exercise counseling acute Food insecurity acute PCOS (polycystic ovarian syndrome) acute Prediabetes acute Severe obesity (BMI >= 40) a cute Lightheadedness acute Menorrhagia acute Palpitations acute Dietary surveillance and counseling acute Exercise counseling acute Severe obesity (BMI >= 40) a [facility] Work Phone: evaluation note* Diagnosis Onset Date Resolution Status Lightheadedness acute Menorrhagia acute Palpitations acute Dietary surveillance and counseling acute Exercise counseling acute Severe obesity (BMI >= 40) a [facility] Work Phone: history general Narrative - Reported* [...] Pneumonia Hospitalization History Hospitalized for blood l Icinetic 2010 [facility] Other history general Narrative - Reported* Type [...] History Hospitalized for blood l oss 2010 [facility] Other history general Narrative - Reported* Type [...] History Hospitalized for blood l oss 2010 [facility] Other history general Narrative - Reported* Type [...] History Hospitalized for blood l oss 2010 [facility] Other history general Narrative - Reported* Type [...] History Hospitalized for blood l oss 2010 [facility] Other history general Narrative - Reported* Type [...] History Hospitalized for blood l oss 2010 [facility] Other history general Narrative - Reported* Type [...] History Hospitalized for blood l oss 2010 [facility] Other Reason for referral (narrative)* Reason *FU 06/20 would sherif [place] a referral to pscyiatrist -- was recently diagnosed with bipolar and would like medication management. Diagnosis 1 Bipolar 2 disorder ( F31.81) Referral Organization [facility] [employer]an Referring Provider First Name Manisha Referring Provider Last Name Rohrbacher Referring Provider Specialty Nurse Pract itioner Ref[facility] Referred Address [address] ,[place], [place],[address] Referred Provider Specialty Psychiatry Referral Priority Routine General Notes Paola Henderson 01:25:30 PM >received today, not sure if [facility] does medication management, waiting for notes to be locked Paola Henderson 06/13/2023 10:34:39 AM >notes locked, referral faxed Clinical Notes p: [phone] f: [id number] [facility] Reason *06/20 would sherif groves a referral to pain management for other options for pain control for back pain Diagnosis 1 Degenerative lumbar disc (M51.36) Referral Organization [facility] [employer]an Referring Provider First Name Manisha Referring Provider Last Name Rohrbacher Referring Provider Specialty Nurse Pract itioner Referred Organization [facility] Referred Provider Yrn Parsons Referred Address [address], [place],[address] Referred Provider Specialty Pain Medicin e Referral Priority Routine General Notes Paola Henderson 01:21:23 PM >received today, waiting for notes to be locked Paola Henderson 06/13/2023 10:25:26 AM >notes locked, referral faxed Clinical Notes f: [phone] [facility] Other Summary Purpose Family History No Family [...] and content) DATE CREATED AUTHOR 08/27/2021 [employer] DATE CREATED AUTHOR AUTHOR'S ORGANIZ ATION 01/01/2023 [facility] DATE CREATED AUTHOR AUTHOR'S ORGANIZ ATION 01/30/2024 [facility] DATE CREATED AUTHOR AUTHOR'S ORGANIZ ATION 03/18/2024 [facility] DATE CREATED AUTHOR AUTHOR'S ORGANIZ ATION 04/08/2024 [facility] REASON [...] Member Role Status Dates Manisha Marc APRN [employer] Primary Care Provider Active Team Status: Active Member Role Status Dates Manisha Marc APRN [employer] Primary Care Provider, Attending Provider Active Team Status: Inactive Member Role Status Dates Manisha Marc APRN [employer] Primary Care Provider Active Celio Mullins DO Attending Provider Active Team Status: Inactive Member Role Status Dates Manisha Marc APRN [employer] Primary Care Provider Active Clinton Frazier MD Attending Provider Active Team Status: Inactive Member Role Status Dates Manisha Marc APRN [employer] Primary Care Provider Active Start: July 032022 End: July 03, 2023 Celio Mullins DO Attending Provider Active St art: July 03, 2023 End: July 03, 2023 Team Status: Active Member Role Status Dates Manisha Marc APRN [employer] Primary Care Provider Active Start: July 032022 [...] Member Role Status Dates Manisha Marc APRN [employer] Primary Care Provider Active Start: July End: July 19, 2023 Clinton Frazier MD Attending Provider Active Start: July 19, 2023 End: July 19, 2023 Team Status: Inactive Member Role Status Dates Manisha Marc APRN [employer] Attending Provider Act rafal Start: August 13, 2023 End: August 13, 2023 Team Status: Inactive Member Role Status Dates Nely Cage [facility] Attending Provider Active Start: August 19, 2023 End: August 19, 2023 Team Status: Active Member Role Status Dates Manisha Marc APRN [employer] Primary Care Provider, Attending Provider Active Start: August 19, 2023 Team Status: Inactive Member Role Status Dates Manisha Marc APRN [employer] Attending Provider Act rafal Start: September 03, 2023 End: September 03, 2023 Team Status: Inactive Member Role Status Dates Manisha Marc APRN [employer] Primary Care Provider Active Start: October [id number] End: October 01, 2023 Celio Mullins DO Attending Provider Active St art: October 01, 2023 End: October 01, 2023 Team Status: Active Member Role Status Dates Manisha Marc APRN [employer] Primary Care Provider Active Start: August 142022 Edward Gilmore MD Attending Provider Active Start: August 14, 2023 Team Status: Active Member Role Status Dates Manisha Marc APRN [employer] Primary Care Provider, Attending Provider Active Start: October 06, 2023 Team Status: Inactive Member Role Status Dates Manisha Marc APRN [employer] Primary Care Provider Active Start: October [id number] End: October 08, 2023 Akil Cox DO Attending Provider Active Start: October 08, 2023 End: October 08, 2023 Team Status: Active Member Role Status Dates Manisha Marc APRN [employer] Primary Care Provider, Attending Provider Active Start: October 30, 2023 Team Status: Inactive Member Role Status Dates Manisha Marc APRN [employer] Primary Care Provider, Attending Provider Active Start: November 03, 2023 End: November 03, 2023 Team Status: Active Member Role Status Dates Manisha Marc APRN [employer] Primary Care Provider Active Start: August Edward Gilmore MD Attending Provider Active Start: September 10, 2023 Team Status: Inactive Member Role Status Dates Manisha Marc APRN [employer] Primary Care Provider Active Start: November 26, 2023 End: November 26, 2023 Celio Mullins DO Attending Provider Active St art: November 26, 2023 End: November 26, 2023 Team Status: Active Member Role Status Dates Manisha Marc APRN [employer] Primary Care Provider Active Start: January 01, [...] BE BASED ON THE PRIMARY CLINICAL RECORDS. [employer] provides no warranty or guarantee of the accuracy or completeness of information in this document.
[2024-04-12] MEDS: IBUPROFEN 600 MG TABLET PO (02:04)
[2024-04-12 02:25] LABS: Basophils Absolute Auto 0.1 10^3/uL (0.0-0.1); Basophils Percent Auto 0.6 % (0.2-2.0); Eosinophils Absolute Auto 0.1 10^3/uL (0.0-0.7); Hematocrit 37.9 % (36.0-48.0); Hemoglobin 11.6 g/dL (12.0-16.0); Immature Granulocytes Abs Auto 0.03 10^3/uL (0.00-0.03); Immature Granulocytes Pct Auto 0.3 % (0.0-0.5); Lymphocytes Absolute Auto 3.5 10^3/uL (1.2-3.8); Lymphocytes Percent Auto 35.5 % (20.5-60.0); Mean Corpuscular HGB Conc 30.6 g/dL (29.9-35.2); Mean Corpuscular Hemoglobin 24.5 pg (26.7-34.0); Mean Corpuscular Volume 80.1 fL (81.0-99.0); Mean Platelet Volume 10.2 fL (9.5-13.5); Monocytes Absolute Auto 0.5 10^3/uL (0.3-0.8); Monocytes Percent Auto 4.7 % (1.7-12.0); Neutrophils Absolute Auto 5.7 10^3/uL (1.4-6.5); Neutrophils Percent Auto 57.9 % (43.0-75.0); Platelet Count 299 10^3/uL (150-450); Red Blood Count 4.73 10^6/uL (4.20-5.40); Red Cell Distribution Width 17.4 % (11.0-15.0); White Blood Count 9.9 10^3/uL (4.0-11.0)
[2024-04-12 02:28] LABS: Bilirubin Urine NEGATIVE (NEGATIVE); Blood Urine NEGATIVE (NEGATIVE); Clarity Urine CLEAR (CLEAR); Color Urine YELLOW (YELLOW); Glucose Urine UA NEGATIVE (NEGATIVE); Ketones Urine NEGATIVE (NEGATIVE); Leukocyte Esterase Urine NEGATIVE (NEGATIVE); Nitrite Urine NEGATIVE (NEGATIVE); Protein Urine NEGATIVE (NEG/TRACE); Specific Gravity Urine >=1.030 (1.005-1.025); Urobilinogen Urine 0.2 EU/dL (0.2-1.0)
[2024-04-12 02:37] LABS: Bacteria Urine SMALL #/HPF (NONE SEEN); Crystals Seen? None Seen #/HPF (None Seen); Mucus Urine TRACE (NONE SEEN); RBC Urine 0-2 #/HPF (0-2); Squamous Epithelial Cell Urine FEW #/LPF (NONE/RARE); Transitional Epi Cells Urine RARE #/LPF (NONE SEEN)
[2024-04-12 02:38] LABS: Amphetamine Screen Urine NEGATIVE (NEGATIVE); Barbiturates Screen Urine NEGATIVE (NEGATIVE); Benzodiazepines Screen Urine NEGATIVE (NEGATIVE); Buprenorphine Screen Urine NEGATIVE (NEGATIVE); Cannabinoid Screen Urine NEGATIVE (NEGATIVE); Cast Seen? NONE SEEN #/LPF (NONE SEEN); Cocaine Screen Urine NEGATIVE (NEGATIVE); Methadone Screen Urine NEGATIVE (NEGATIVE); Methamphetamines Screen Urine NEGATIVE (NEGATIVE); Opiate Screen Urine NEGATIVE (NEGATIVE); Oxycodone Screen Urine NEGATIVE (NEGATIVE); Phencyclidine Screen Urine NEGATIVE (NEGATIVE); Tricyclic Antidepressant Urine NEGATIVE (NEGATIVE); Urine Culture Indicated YES
[2024-04-12 02:41] LABS: Alanine Aminotransferase 36 U/L (14-59); Albumin Globulin Ratio 0.8; Albumin Level 3.3 g/dL (3.4-5.0); Alkaline Phosphatase 75 U/L (46-116); Aspartate Amino Transferase 19 U/L (15-37); BUN Creatinine Ratio 14.3; Bilirubin Total 0.3 mg/dL (0.2-1.0); Calcium 8.6 mg/dL (8.5-10.1); Carbon Dioxide 28.7 mmol/L (21.0-32.0); Chloride 101 mmol/L (98-107); Estimated GFR (African America >60 (>=60); Estimated GFR (Non-African Ame >60 (>=60); Globulin 4.1 g/dL; Glucose 103 mg/dL (74-106); Potassium 3.7 mmol/L (3.5-5.1); Salicylate <2.8 mg/dL (<=19.9); Sodium 136 mmol/L (136-145); Total Protein 7.4 g/dL (6.4-8.2)
[2024-04-12 02:43] LABS: Acetaminophen <2.0 ug/mL (10.0-30.0)
[2024-04-12 02:44] LABS: HCG Qualitative Urine* NEGATIVE (NEGATIVE); Internal Control Within Normal Limits
[2024-04-12 03:11] LABS: Ethanol <3 mg/dL
== END 2024-04-12 03:42 | disposition home or self-care (01) ==
PROVIDERS: Emergency Provider Emergency Medicine; PCP Nurse Practitioner Family
DX: F41.9 Anxiety disorder, unspecified (principal); F43.81 Prolonged grief disorder; F31.9 Bipolar disorder, unspecified; K08.89 Other specified disorders of teeth and supporting structures
CPT/HCPCS: 36415; 80053; 80179; 80307; 80320; 80329; 81001; 84703; 85025; 87086; 93005; 99284

== ENCOUNTER 2024-04-14 20:23 | Emergency (ER) | payer OTHER, SELFPAY ==
[2024-04-14 20:29] VITALS: BP 164/84; PULSE 87; TEMP 36.8; O2SAT 99; BMI 56.6
--- NOTE | 2024-04-14 20:34 | ECG_ITS ---
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
--- NOTE | 2024-04-14 20:49 | ED.DENTAL1 ---
HPI - Dental/Oral General Chief complaint: Dental/Oral Stated complaint: DENTAL TOOK TO MUCH MEDICATION Time Seen by Provider: 04/14/24 20:40 Source: patient Mode of arrival: walk-in Limitations: no limitations History of Present Illness HPI Narrative: patient presents complaining of dental pain. Ongoing for several weeks. States she is not able to see her dentist until the end of the month. no swelling. States this AM she took 3 ibuprofen pills. Tonight she took 600mg of Neurontin. States she normally takes Gabapentin 300 prn. Has never taken 2 at the same time and now has a sensation of feeling drunk. No nausea. No problem swallowing. Not dizzy and able to ambulate normally Related Data Home Medications ?Medication ?Instructions ?Recorded ?Confirmed albuterol sulfate 90 mcg/actuation 2 inh inhalation Q6H PRN shortness 01/17/23 04/14/24 aerosol inhaler (ProAir HFA) of breath or wheezing gabapentin 300 mg capsule 300 mg PO Q12H PRN pain 01/17/23 04/14/24 metformin 500 mg tablet 500 mg PO BID 01/17/23 10/30/23 valacyclovir 1 gram tablet 1,000 mg PO BID 06/25/23 04/14/24 coenzyme Q10 100 mg capsule (Co 200 mg PO DAILY 10/30/23 10/30/23 Q-10) inositol 500 mg tablet 500 mg PO DAILY 10/30/23 10/30/23 lamotrigine 25 mg tablet (Lamictal) 25 mg PO Q12H 10/30/23 04/14/24 celecoxib 100 mg capsule (Celebrex) 100 mg PO BID 01/07/24 04/14/24 cyclobenzaprine 10 mg tablet 10 mg PO TID 01/07/24 04/14/24 duloxetine 60 mg capsule,delayed mg PO 04/14/24 release lisinopril 10 mg tablet mg 04/14/24 metformin 500 mg tablet,extended mg PO 04/14/24 release 24 hr Allergies Allergy/AdvReac Type Severity Reaction Status Date / Time amoxicillin Allergy Rash Verified 04/14/24 20:34 cefaclor Allergy Rash Verified 04/14/24 20:34 erythromycin base Allergy Hives Verified 04/14/24 20:34 Review of Systems ROS Status of ROS 10 or more systems reviewed and unremarkable except as noted in history and below [facility] Medical History Herpes genitalia ?A60.00 - Herpesviral infection of urogenital system, unspecified (ICD-10) Back pain ?M54.9 - Dorsalgia, unspecified (ICD-10) Arthritis ?M19.90 - Unspecified osteoarthritis, unspecified site (ICD-10) Anemia ?D64.9 - Anemia, unspecified (ICD-10) Depression ?F32.A - Depression, unspecified (ICD-10) Anxiety ?F41.9 - Anxiety disorder, unspecified (ICD-10) COVID-19 ?U07.1 - COVID-19 (ICD-10) Asthma ?J45.909 - Unspecified asthma, uncomplicated (ICD-10) Seizures ?R56.9 - Unspecified convulsions (ICD-10) GERD (gastroesophageal reflux disease) ?K21.9 - Gastro-esophageal reflux disease without esophagitis (ICD-10) Sleep apnea ?G47.30 - Sleep apnea, unspecified (ICD-10) Palpitations ?R00.2 - Palpitations (ICD-10) Prediabetes ?R73.03 - Prediabetes (ICD-10) Hypertension ?I10 - Essential (primary) hypertension (ICD-10) PCOS (polycystic ovarian syndrome) ?E28.2 - Polycystic ovarian syndrome (ICD-10) Abnormal uterine bleeding (AUB) ?N93.9 - Abnormal uterine and vaginal bleeding, unspecified (ICD-10) Menorrhagia ?N92.0 - Excessive and frequent menstruation with regular cycle (ICD-10) Surgical History History of laparoscopy ?Z98.890 - Other specified postprocedural states (ICD-10) History of colposcopy ?Z98.890 - Other specified postprocedural states (ICD-10) History of wisdom tooth extraction ?K08.409 - Partial loss of teeth, unspecified cause, unspecified class (ICD-10) History of cholecystectomy ?Z90.49 - Acquired absence of other specified parts of digestive tract (ICD-10) Family History Other Family history of heart disease Family history of stroke Social History Within the past year, how often did you have a drink containing alcohol: monthly or less Smoking status: Never smoker 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 tender Eye Common normals: EOMs intact bilaterally and conjunctivae normal Respiratory Common normals: normal respiratory effort, no retractions, no use of accessory muscles and clear to auscultation bilaterally Cardio Common normals: regular rate, regular rhythm, S1 normal heart sound and S2 normal heart sound GI Common normals: Normal to inspection, nondistended, normoactive bowel sounds present, soft to palpation and non-tender Extremity Common normals: normal to inspection and full ROM Neuro Common normals: oriented x3, CN's II-XII intact bilaterally, moves all extremities, no focal motor deficits and no sensory deficits noted Psych Appearance: grossly normal Course Vital Signs Vital signs: Vital Signs Temperature 98.3 F 04/14/24 20:29 Pulse Rate 87 04/14/24 20:29 Respiratory Rate 18 04/14/24 20:29 Blood Pressure 164/84 H 04/14/24 20:29 Pulse Oximetry 99 04/14/24 20:29 Oxygen Delivery Method Room Air 04/14/24 20:29 Temperature 98.3 F 04/14/24 20:29 Pulse Rate 87 04/14/24 20:29 Respiratory Rate 18 04/14/24 20:29 Blood Pressure 164/84 H 04/14/24 20:29 Pulse Oximetry 99 04/14/24 20:29 Oxygen Delivery Method Room Air 04/14/24 20:29 MDM - Dental/Oral MDM Narrative Medical decision making narrative: patient presents with worsening dental pain. Also experiencing sensation of feeling sl. intoxicated after taking 600mg dose of neurontin. She normally only takes 300mg prn. She is in no distress. Clear headed. normal gait. advised of working diagnosis of dental abscess and adverse reaction of taking too much neurontin at one time. Discharged with clindamycin and advised to use Neurontin as prescribed. Discharge Plan Discharge Stand Alone Forms: Work/School Release, Portal Instructions Chief Complaint: Dental/Oral Clinical Impression: Dental abscess, Acute drug overdose Patient Disposition: Home, Self-Care Prescriptions / Home Meds: No Action valacyclovir 1 gram tablet 1,000 mg PO BID inositol 500 mg tablet 500 mg PO DAILY lamotrigine [Lamictal] 25 mg tablet 25 mg PO Q12H coenzyme Q10 [Co Q-10] 100 mg capsule 200 mg PO DAILY gabapentin 300 mg capsule 300 mg PO Q12H PRN (Reason: pain) albuterol sulfate [ProAir HFA] 90 mcg/actuation HFA aerosol inhaler 2 inh inhalation Q6H PRN (Reason: shortness of breath or wheezing) metformin 500 mg tablet 500 mg PO BID cyclobenzaprine 10 mg tablet 10 mg PO TID celecoxib [Celebrex] 100 mg capsule 100 mg PO BID lisinopril 10 mg tablet metformin 500 mg tablet extended release 24 hr PO duloxetine 60 mg capsule,delayed release(DR/EC) PO Print Language: Mexican Instructions: Dental Abscess (ED), Adult Overdose (ED) Additional Instructions: take Gabapentin as prescribed Referrals: CHRIS LOPEZ [Primary Care Provider] - 1 week Discharge Date/Time: 04/14/24 21:40
--- OUTSIDE RECORDS SUMMARY | 2024-04-14 21:10 | XMS_ITS | CCD ---
Author Organization [facility] Care Team Providers Care Outfitter Cabin Name Role Phone BRENT KINNEY Referring Unavailable BRENT KINNEY Attending Unavailable BRENT KINNEY Admitting Unavailable Michelle Ernandez Unavailable VIOLA, DR NUR Consulting Unavailable HOUSE, DR NUR Admitting Unavailable HOUSE, DR NUR Primary Care Unavailable HOUSE, DR NUR Attending Unavailable ZIEBER, DR SUGEY Ibrahim Consulting Unavailable FREDA ., DR COLLADO Admitting Unavailable HOUSE, DR NUR Primary Care Unavailable FREDA ., DR COLLADO Attending Unavailable FREDA ., DR COLLADO Consulting Unavailable HOUSE, DR NUR Consulting Unavailable LIVINGSTON MANOR, DR NUR Primary Care Unavailable HOUSE, DR [...] Unavailable Celio Mullins Unavailable Manisha Marc Unavailable [phone] ROSITA Marc Primary Care Provider ROSITA Marc Attending Provider [phone] DO Celio Mullins Attending Provider [phone] ROSITA Marc Primary Care Provider MD Clinton Frazier Attending Provider ROSITA Marc Attending Provider [phone] ROSITA Marc Primary Care Provider DO Celio Mullins Attending Provider MD Edward Gilmore Attending Provider MD Clinton Frazier Attending Provider [phone] ROSITA Marc Primary Care Provider MD Edward Gilmore Attending Provider DO Akil Cox Attending Provider ROSITA Marc Primary Care Provider MD Edward Gilmore Attending Provider ROSITA Marc Attending Provider DO Akil Cox Attending Provider [phone] ROSITA Marc Primary Care Provider MD Edward Gilmore Attending Provider ROSITA Marc Primary Care Provider MD Edward Gilmore Attending Provider Giwill CROWLEY, Andrius Vytautcortez Attending Unavailable Garret CROWLEY, Andrius Vytautas Attending Unavailable Garret CROWLEY, Andrius Vytautas Attending Unavailable Garret CROWLEY, Andrius Vytautas Attending Unavailable TOBIAS OSCAR Attending Unavailable MELA ANDERSON Attending Unavailable MELA ANDERSON Attending Unavailable Manisha Marc Attending Unavailable Manisha Marc Admitting Unavailable Manisha Marc Primary Care Unavailable Deirdre Edward Admitting Unavailab Edward Lance Attending Unavailab zach Marc [facility] Unavailable Ivon Mullinsten M Admitting Unavailable MullinsIvonCelio M Attending Unavailable Tari [facility] Unavailable Clinton Frazier L Admitting Unavailable Clinton Frazier L Attending Unavailable [facility] Unavailable [facility], [facility] Unavailable Mullins, Celio M Admitting Unavailable Mullins, Celio M Attending Unavailable Mullins, Celio M Admitting Unavailable Mullins, Celio M Attending Unavailable [facility] Unavailable Akil Cox Attending Unavailab Akil Avila Admitting Unavailab zach Marc [facility] Unavailable Allergies Allergy Classification Reported Allergen(s) Allergy Type Date of Onset Reaction(s) Facility (20 sources) Amoxicillin; Translations: [AMOXICILLIN] Drug Allergy 07-08-20 16 [facility] Repository (9 sources) Cefaclor; Translations: [CEFACLOR] Drug Allergy 04-14-20 15 Unknown Reaction, [facility] Repository (19 sources) Erythromycin; Translations: [ERYTHROMYCIN] Drug Allergy 04-14-20 15 [facility] Repository (19 sources) Cefaclor; Translations: [Ceclor] Drug Allergy 04-17-20 15 [facility] Repository (8 sources) Erythromycin Drug Allergy 04-17-20 15 Unknown Reaction, [facility] Repository (8 sources) Cephalosporins (Antibiotic); Translations: [Cephalosporins] Allergy to substance 12-10-19 22 Unknown Reaction, Rash [facility] (3 sources) Lactulose; Translations: [lactulose] Drug Allergy 02-12-20 [address] Unknown Reaction [facility] (1 source) Erythromycin Drug Allergy 11-26-[address] [facility] Repository Medications Current Medications Medication Drug Class(es) Dates Sig (Normalized) Sig (Original) [id number] 200 actuat albuterol 0.09 mg/actuat metered dose [...] Garnett take 1 capsule by mo [facility] once daily as needed Gabapentin 300 [...] Basophils (Bld) [#/Vol] 0.0 10 3/uL 0.0-0.[address] [facility] Basophils/100 WBC Auto (Bld) on 11-03-2023 Basophils/100 WBC (Bld) 0.5 % 0.2-2.0 F [facility] Eosinophils/100 WBC Auto (Bl d)on 11-03-2023 Eosinophils/100 WBC (Bld) 1.4 % 0.9-7.[address] [facility] Erythrocyte distribution wid th Auto (RBC) [Ratio]on 11-03-2023 Erythrocyte distribution width (RBC) [Ratio] 16.3 % 11.0-15.[address] [facility] Estimated glomerular filtrat ion rate (GFR) non- Americanon 11-03-2023 GFR/1.73 sq M.predicted among non-blacks MDRD (S/P/Bld) [Vol rate/Area] mL/min/{1.73_m2} >=[address] [facility] Globulin Calc (S) [Mass/Vol] on 11-03-2023 Globulin (S) [Mass/Vol] 4.0 g/dL F [facility] Hematocrit Auto (Bld) [Volum e fraction]on 11-03-2023 Hematocrit (Bld) [Volume fraction] 26.1 % 36.0-48.[address] [facility] Hemoglobin [Mass/volume] in Bloodon 11-03-2023 Hemoglobin (Bld) [Mass/Vol] 7.8 g/dL 12.0-16.[address] [facility] Human papilloma virus 16+18+ 31+33+35+39+45+51+52+56+58+59+66+68 DNA [Presence] in [place] 11-03-2023 HPV 16+18+31+33+35+39+45+51 +52+56+58+59+66+68 DNA Probe+sig amp Ql (Cvx) Negative Negative [facility] Comment on above: This nucleic acid am plification test detects fourteen high-risk HPV types (16,18,31,33,35,39,45,51,52,56,58,59,66,68)without differentiation.Performed at: =G - [facility] [id number] [facility] [place], [place] [id number] Director: Monse Cardona MD, Phone: [phone] at: WB - [facility] [id number] [place] [place] [id number] Director: Monse Cardona MD, Phone: [phone] Iron binding capacity [Mass/ volume] in Serum or Plasmaon 11-03-2023 Iron binding capacity [Mass/Vol] 512.0 ug/dL 250.0-450.[address] [facility] Iron saturation [Mass Fracti on] in Serum or Plasmaon 11-03-2023 Iron saturation [Mass fraction] 2.7 % [facility] Laboratory - Chemistry and C hemistry - challengeon 11-03-2023 Albumin [Mass/Vol] 3.1 g/dL 3.4-5.0 [facility] ALP [Catalytic activity/Vol] 63 U/L 46-[address] [facility] ALT [Catalytic activity/Vol] 29 U/L 14-[address] [facility] AST [Catalytic activity/Vol] 18 U/L 15-[address] [facility] Bilirubin [Mass/Vol] 0.2 mg/dL 0.2-1.0 [facility] Calcium [Mass/Vol] 8.7 mg/dL 8.5-10.1 [facility] Chloride [Moles/Vol] 102 mmol/L 98-107 [facility] CO2 [Moles/Vol] 27.6 mmol/L 21.0-32.0 [facility] Creatinine [Mass/Vol] 0.70 mg/dL 0.55-1.02 [facility] Ferritin [Mass/Vol] 6.0 ng/mL 8.0-252.0 [facility] GFR/1.73 sq M.predicted MDRD (S/P/Bld) [Vol rate/Area] mL/min/{1.73_m2} >=[address] [facility] Glucose [Mass/Vol] 103 mg/dL 74-106 [facility] Iron [Mass/Vol] 14.0 ug/dL 50.0-170.[address] [facility] Potassium [Moles/Vol] 3.8 mmol/L 3.5-5.1 [facility] Protein [Mass/Vol] 7.1 g/dL 6.4-8.2 [facility] Sodium [Moles/Vol] 139 mmol/L 136-145 [facility] Urea nitrogen [Mass/Vol] 11.0 mg/dL 7.0-18.[address] [facility] Urea nitrogen/Creatinine [Mass ratio] 15.7 mg/mg [facility] Laboratory - Hematology and Cell countson 11-03-2023 Immature granulocytes/100 WBC (Bld) 0.4 % 0.0-0.[address] [facility] Leukocytes [#/volume] correc carmelita for nucleated erythrocytes in Blood by Automated counon 11-03-2023 WBC corrected for nucl RBC Auto (Bld) [#/Vol] 7.4 10 3/uL 4.0-11.[address] [facility] Lymphocytes Auto (Bld) [#/Vo l]on 11-03-2023 Lymphocytes (Bld) [#/Vol] 2.5 10 3/uL 1.2-3.[address] [facility] Lymphocytes/100 WBC Auto (Bl d)on 11-03-2023 Lymphocytes/100 WBC (Bld) 33.6 % 20.5-60.[address] [facility] MCH Auto (RBC) [Entitic mass ]on 11-03-2023 MCH (RBC) [Entitic mass] 24.8 pg 26.7-34.[address] [facility] MCHC Auto (RBC) [Mass/Vol]on 11-03-2023 MCHC (RBC) [Mass/Vol] 29.9 g/dL 29.9-35.2 [facility] MCV Auto (RBC) [Entitic vol] on 11-03-2023 MCV (RBC) [Entitic vol] 82.9 fL 81.0-99.0 F [facility] Monocytes Auto (Bld) [#/Vol] on 11-03-2023 Monocytes (Bld) [#/Vol] 0.4 10 3/uL 0.3-0.[address] [facility] Monocytes/100 WBC Auto (Bld) on 11-03-2023 Monocytes/100 WBC (Bld) 5.6 % 1.7-12.0 [facility] Neutrophils Auto (Bld) [#/Vo l]on 11-03-2023 Neutrophils (Bld) [#/Vol] 4.3 10 3/uL 1.4-6.[address] [facility] Neutrophils/100 WBC Auto (Bl d)on 11-03-2023 Neutrophils/100 WBC (Bld) 58.5 % 43.0-75.[address] [facility] No Panel Informationon 11-02 Eosinophils # (Auto) 0.1 10 3/uL 0.0-0.7 Fir [facility] Immature Granulocyte # (Auto) 0.03 10 3/uL 0.00-0.[address] [facility] HPV High Risk Other Comment Note . [facility] Comment on above: TESTS RESULT FLAG UN ITS REF RANGE LAB -DIAGNOSIS: 02 NEGATIVE FOR INTRAEPITHELIAL LESION OR MALIGNANCY.Specimen adequacy: 02 Satisfactory for evaluation. Endocervical and/or squamous metaplastic cells (endocervical component) are present.Performed by: Mikhail Escalante, Wrapper Cashier (ASCP). 02Note: Note 02 The Pap smear [...] Low,>-Panic High,A-Abnormal,AA-Critical Abnormal ------Performed at:02 WB [facility] [address] [place] [address] Monse Cardona MD, Reference Lab Test Patient Age Note . [facility] Comment on above: TESTS RESULT FLAG UN ITS REF RANGE LAB - Clinician Provided Cytology Information Source.............Cervix;Endocervix No. of containers..01 ThinPrep VialAge Algo ACOG Elise... 01 FLAG LEGEND: L-Low Normal,H-High Normal,LL-Alert Low,HH-Alert High <-Panic Low,>-Panic High,A-Abnormal,AA-Critical Abnormal ------Performed at:01 =G [facility] [address] [facility] [place] [place] [address] Monse Cardona MD, Platelet mean volume Auto (B ld) [Entitic vol]on 11-03-2023 Platelet mean volume (Bld) [Entitic vol] 9.6 fL 9.5-13.[address] [facility] Platelets Auto (Bld) [#/Vol] on 11-03-2023 Platelets (Bld) [#/Vol] 323 10 3/uL 150-[address] [facility] RBC Auto (Bld) [#/Vol]on RBC (Bld) [#/Vol] 3.15 10 6/uL 4.20-5.40 [facility] Serum or plasma albumin/glob ulin mass ratioon 11-03-2023 Albumin/Globulin [Mass ratio] 0.8 {ratio} [facility] Serum or plasma anion gap de terminationon 11-03-2023 Anion gap [Moles/Vol] 13.2 mmol/L [facility] Basophils Auto (Bld) [#/Vol] on 10-30-2023 Basophils (Bld) [#/Vol] 0.0 10 3/uL 0.0-0.[address] [facility] Basophils/100 WBC Auto (Bld) on 10-30-2023 Basophils/100 WBC (Bld) 0.6 % 0.2-2.0 [facility] Eosinophils/100 WBC Auto (Bl d)on 10-30-2023 Eosinophils/100 WBC (Bld) 1.2 % 0.9-7.[address] [facility] Erythrocyte distribution wid th Auto (RBC) [Ratio]on 10-30-2023 Erythrocyte distribution width (RBC) [Ratio] 16.6 % 11.0-15.[address] [facility] Estimated glomerular filtrat ion rate (GFR) non- Americanon 10-30-2023 GFR/1.73 sq M.predicted among non-blacks MDRD (S/P/Bld) [Vol rate/Area] mL/min/{1.73_m2} >=[address] [facility] HCG ( test) IA.rapi d Ql (U)on 10-30-2023 HCG ( test) Ql (U) Negative NEGATIVE [facility] Hematocrit Auto (Bld) [Volum e fraction]on 10-30-2023 Hematocrit (Bld) [Volume fraction] 26.6 % 36.0-48.[address] [facility] Hemoglobin [Mass/volume] in Bloodon 10-30-2023 Hemoglobin (Bld) [Mass/Vol] 7.9 g/dL 12.0-16.[address] [facility] Laboratory - Chemistry and C hemistry - challengeon 10-30-2023 Calcium [Mass/Vol] 8.5 mg/dL 8.5-10.1 [facility] Chloride [Moles/Vol] 101 mmol/L 98-107 [facility] CO2 [Moles/Vol] 28.8 mmol/L 21.0-32.0 [facility] Creatinine [Mass/Vol] 0.62 mg/dL 0.55-1.02 [facility] GFR/1.73 sq M.predicted MDRD (S/P/Bld) [Vol rate/Area] mL/min/{1.73_m2} >=[address] [facility] Glucose [Mass/Vol] 104 mg/dL 74-106 [facility] Potassium [Moles/Vol] 4.0 mmol/L 3.5-5.1 [facility] Sodium [Moles/Vol] 137 mmol/L 136-145 [facility] Urea nitrogen [Mass/Vol] 8.0 mg/dL 7.0-18.[address] [facility] Urea nitrogen/Creatinine [Mass ratio] 12.9 mg/mg [facility] Laboratory - Hematology and Cell countson 10-30-2023 Immature granulocytes/100 WBC (Bld) 0.4 % 0.0-0.[address] [facility] Leukocytes [#/volume] correc carmelita for nucleated erythrocytes in Blood by Automated counon 10-30-2023 WBC corrected for nucl RBC Auto (Bld) [#/Vol] 7.3 10 3/uL 4.0-11.[address] [facility] Lymphocytes Auto (Bld) [#/Vo l]on 10-30-2023 Lymphocytes (Bld) [#/Vol] 2.2 10 3/uL 1.2-3.[address] [facility] Lymphocytes/100 WBC Auto (Bl d)on 10-30-2023 Lymphocytes/100 WBC (Bld) 30.2 % 20.5-60.[address] [facility] MCH Auto (RBC) [Entitic mass ]on 10-30-2023 MCH (RBC) [Entitic mass] 25.0 pg 26.7-34.[address] [facility] MCHC Auto (RBC) [Mass/Vol]on 10-30-2023 MCHC (RBC) [Mass/Vol] 29.7 g/dL 29.9-35.2 [facility] MCV Auto (RBC) [Entitic vol] on 10-30-2023 MCV (RBC) [Entitic vol] 84.2 fL 81.0-99.0 [facility] Monocytes Auto (Bld) [#/Vol] on 10-30-2023 Monocytes (Bld) [#/Vol] 0.3 10 3/uL 0.3-0.[address] [facility] Monocytes/100 WBC Auto (Bld) on 10-30-2023 Monocytes/100 WBC (Bld) 3.7 % 1.7-12.0 [facility] Neutrophils Auto (Bld) [#/Vo l]on 10-30-2023 Neutrophils (Bld) [#/Vol] 4.6 10 3/uL 1.4-6.[address] [facility] Neutrophils/100 WBC Auto (Bl d)on 10-30-2023 Neutrophils/100 WBC (Bld) 63.9 % 43.0-75.[address] [facility] No Panel Informationon 10-29 Eosinophils # (Auto) 0.1 10 3/uL 0.0-0.7 [facility] Immature Granulocyte # (Auto) 0.03 10 3/uL 0.00-0.[address] [facility] Platelet mean volume Auto (B ld) [Entitic vol]on 10-30-2023 Platelet mean volume (Bld) [Entitic vol] 9.4 fL 9.5-13.[address] [facility] Platelets Auto (Bld) [#/Vol] on 10-30-2023 Platelets (Bld) [#/Vol] 264 10 3/uL 150-[address] [facility] RBC Auto (Bld) [#/Vol]on RBC (Bld) [#/Vol] 3.16 10 6/uL 4.20-5.40 [facility] Serum or plasma anion gap de terminationon 10-30-2023 Anion gap [Moles/Vol] 11.2 mmol/L [facility]/brain wo/w conon MR head/brain wo/w con [facility] Main [place] [address] [place] [address] MRI Report Signed Patient: Ashly Mehta MR#: [id number] 8 : 1990 Acct:[id number] Age/Sex: 33 / F ADM Date: 10/08/23 Loc: MR Room: Type: [facility] CLI Attending Dr: Akil Cox DO [...] Ivan Holliday M.D.10/08/2023 4:38 PM Dictation Location: [place] [address] Transcribed By: LAMINE 10/08/23 1638 Dictated By: Ivan Holliday II, MD 10/08/23 1630 Signed By: 10/08/23 1638 Normal [facility] HCG ( test) IAsurjitlive d Ql (U)on 10-06-2023 HCG ( test) Ql (U) Negative NEGATIVE [facility] COVID + FLU Quick Testingon 07-07-2023 SARS-CoV-2 (COVID-19) RNA SURI+probe Ql (Unsp spec) Negative [facility] [employer] Other COVID + FLU Quick Testing Negative [facility] [employer] Other Alanine aminotransferase [En zymatic activity/volume] in Serum or PlasmaOrdered By: Celio Mullins on 07-03-2023 ALT [Catalytic activity/Vol] 22 U/L Normal 7-[address] [facility] Comment on above: Performed By: #### L IPID, CMP #### [facility] [address] [place] [address] [place] Albumin [Mass/volume] in Ser um or Plasma by Bromocresol green (BCG) dye binding methoOrdered By: Celio Mullins on 07-03-2023 Albumin BCG dye [Mass/Vol] 4.4 g/dL 3.5-5.[address] [facility] Alkaline phosphatase [Enzyma tic activity/volume] in Serum or PlasmaOrdered By: Celio Mullins on 07-03-2023 ALP [Catalytic activity/Vol] 68 U/L Normal 34-[address] [facility] Comment on above: Performed By: #### L IPID, CMP #### [facility] [address] [place] [address] [place] Aspartate aminotransferase [ Enzymatic activity/volume] in Serum or PlasmaOrdered By: Celio Mullins on 07-03-2023 AST [Catalytic activity/Vol] 18 U/L Normal 13-[address] [facility] Comment on above: Performed By: #### L IPID, CMP #### [facility] [address] [place], [place] [id number] [place] Bilirubin.total [Mass/volume ] in Serum or PlasmaOrdered By: Celio Mullins on 07-03-2023 Bilirubin [Mass/Vol] 0.4 mg/dL Normal 0.3-1.0 [facility] Comment on above: Performed By: #### L IPID, CMP #### [facility] [address] [place] [address] [place] Calcium [Mass/volume] in Ser um or PlasmaOrdered By: Celio Mullins on 07-03-2023 Calcium [Mass/Vol] 9.4 mg/dL Normal 8.6-10.3 [facility] Comment on above: Performed By: #### L IPID, CMP #### [facility] [address] Carbon dioxide, total [Moles /volume] in Serum or PlasmaOrdered By: Celio Mullins on 07-03-2023 CO2 [Moles/Vol] 30.1 mmol/L Normal 21.0-31.0 [facility] Comment on above: Performed By: #### L IPID, CMP #### [facility] [address] [place] [address] [place] Chloride [Moles/volume] in S marta or PlasmaOrdered By: Celio Mullins on 07-03-2023 Chloride [Moles/Vol] 105 mmol/L Normal 98-107 [facility] Comment on above: Performed By: #### L IPID, CMP #### [facility] [address] [place] [address] [place] Cholesterol [Mass/volume] in Serum or PlasmaOrdered By: Celio Mullins on 07-03-2023 Cholesterol [Mass/Vol] 126 mg/dL Low 140-200 [facility] Comment on above: Chol less than 200 m g/dl low riskChol 201-239 mg/dl borderline riskChol 240 mg/dl and greater high risk Result Comment: Chol less than 200 mg/dl low risk Chol 201-239 mg/dl borderline risk Chol 240 mg/dl and greater high risk Performed By: #### L IPID, CMP #### [facility] [address] [place] [address] [place] Cholesterol in LDL Calc [Mas s/Vol]Ordered By: Celio Mullins on 07-03-2023 Cholesterol in LDL [Mass/Vol] 69 mg/dL 0-[address] [facility] Comment on above: LDL ATP III CLASSIFI CATIONLDL less than 100 mg/dL OptimalLDL 100-129 mg/dL Near or above optimalLDL 130-159 mg/dL Borderline highLDL 160-189 mg/dL HighLDL greater than 189 mg/dL Very high Cholesterol in VLDL Calc [Ma ss/Vol]Ordered By: Celio Mullins on 07-03-2023 Cholesterol in VLDL [Mass/Vol] 18 mg/dL [facility] Comprehensive Metabolic Pane landon 07-03-2023 Albumin [Mass/Vol] 4.4 g/dL Normal 3.5-5.7 [facility] Comment on above: Performed By: #### L IPID, CMP #### [facility] [address] [place] [address] [place] GFR/1.73 sq M.predicted MDRD (S/P/Bld) [Vol rate/Area] mL/min/{1.73_m2} Normal [facility] Comment on above: Performed By: #### L IPID, CMP #### [facility] [address] [place] [address] [place] Creatinine [Mass/volume] in Serum or PlasmaOrdered By: Celio Mullins on 07-03-2023 Creatinine [Mass/Vol] 0.63 mg/dL Normal 0.60-1.20 [facility] Comment on above: Performed By: #### L IPID, CMP #### [facility] [address] [place] [id number] [place] Glucose [Mass/volume] in Ser um or PlasmaOrdered By: Celio Mullins on 07-03-2023 Glucose [Mass/Vol] 97 mg/dL Normal 70-100 [facility] Comment on above: ADA recommended refe rence rangeRandom Glucose Reference Range is dependent on time and content of last meal. Glucose of more than 200 mg/dL in a nonstressed, ambulatory subject supports the diagnosis of Diabetes Mellitus. Result Comment: [place] om Glucose Reference Range is dependent on time and content of last meal. Glucose of more than 200 mg/dL in a nonstressed, ambulatory subject supports the diagnosis of Diabetes Mellitus. ADA recommended reference range Performed By: #### L IPID, CMP #### [facility] [address] Lipid Panelon 07-03-2023 LDL Cholesterol,Calculated 69 mg/dL Normal 0-100 [facility] Comment on above: Result Comment: LDL ATP III CLASSIFICATION LDL less than 100 mg/dL Optimal LDL 100-129 mg/dL Near or above optimal LDL 130-159 mg/dL Borderline high LDL 160-189 mg/dL High LDL greater than 189 mg/dL Very high Performed By: #### L IPID, CMP #### [facility] [address] Triglyceride w/Reflex 92 mg/dL Normal 0-149 [facility] Comment on above: Result Comment: TRIG ATP III CLASSIFICATION TRIG less than 150 mg/dL Normal TRIG 150-199 mg/dL Borderline high TRIG 200-500 mg/dL High TRIG greater than 500 mg/dL Very high Standard traceable to the Center for Disease Conrtrol and Prevention (CDC) test method. Performed By: #### L IPID, CMP #### [facility] [address] VLDL CHOLESTEROL 18 mg/dL Normal [facility] Comment on above: Performed By: #### L IPID, CMP #### [address] No Panel InformationOrdered By: Celio Mullins on 07-03-2023 Estimated GFR (CKD-EPI) > 60.0 mL/Min [facility] Creatinine Clearance (Chem N/A [facility] Potassium [Moles/volume] in Serum or PlasmaOrdered By: Celio Mullins on 07-03-2023 Potassium [Moles/Vol] 4.3 mmol/L Normal 3.5-5.1 [facility] Comment on above: Performed By: #### L IPID, CMP #### [address] Protein [Mass/volume] in Ser um or PlasmaOrdered By: Celio Mullins on 07-03-2023 Protein [Mass/Vol] 7.5 g/dL Normal 6.4-8.9 [facility] Comment on above: Performed By: #### L IPID, CMP #### [facility] [address] Serum globulin measurement b y calculation (mass/volume)Ordered By: Celio Mullins on 07-03-2023 Globulin (S) [Mass/Vol] 3.1 g/dL Normal [facility] Comment on above: Performed By: #### L IPID, CMP #### [facility] [address] [place] [address] Serum or plasma albumin/glob ulin mass ratioOrdered By: Celio Mullins on 07-03-2023 Albumin/Globulin [Mass ratio] 1.4 {ratio} Normal [facility] [facility] Comment on above: Performed By: #### L IPID, CMP #### [address] Serum or plasma anion gap de terminationOrdered By: Celio Mullins on 07-03-2023 Anion gap [Moles/Vol] 10.2 mmol/L Normal 6.0-15.0 [facility] Comment on above: Performed By: #### L IPID, CMP #### [facility] [address] [place] [address] Serum or plasma high density lipoprotein (HDL) cholesterol measurementOrdered By: Celio Mullins on 07-03-2023 Cholesterol in HDL [Mass/Vol] 39 mg/dL Normal 23-[address] [facility] Comment on above: HDL CHOL ATP-III CLA SSIFICATION Cardiovascular RiskHDL > or equal to 60 mg/dL LOWHDL < 40 mg/dL HIGH Result Comment: HDL CHOL ATP-III CLASSIFICATION Cardiovascular Risk HDL > or equal to 60 mg/dL LOW HDL < 40 mg/dL HIGH Performed By: #### L IPID, CMP #### [facility] [address] [place] [address] Serum or plasma total choles terol/high density lipoprotein (HDL) cholesterol mass ratOrdered By: Celio Mullins on 07-03-2023 Cholesterol.total/Mali sterol in HDL [Mass ratio] 3.2 {ratio} Normal <5.[address] [facility] Comment on above: Result Comment: PERF ORMED BY: [place] [address] PATHOLOGIST TRIMMER OPERATOR [employer] NESHA MAIER M.D. Performed By: #### L IPID, CMP #### [address] Sodium [Moles/volume] in Ser um or PlasmaOrdered By: Celio Mullins on 07-03-2023 Sodium [Moles/Vol] 141 mmol/L Normal 136-145 [facility] Comment on above: Performed By: #### L IPID, CMP #### [address] Triglyceride [Mass/volume] i n Serum or PlasmaOrdered By: Celio Mullins on 07-03-2023 Triglyceride [Mass/Vol] 92 mg/dL 0-149 [facility] Comment on above: TRIG ATP III CLASSIF ICATIONTRIG less than 150 mg/dL NormalTRIG 150-199 mg/dL Borderline highTRIG 200-500 mg/dL High TRIG greater than 500 mg/dL Very highStandard traceable to the Center for Disease Conrtrol and Prevention (CDC) test method. Urea nitrogen [Mass/volume] in Serum or PlasmaOrdered By: Celio Mullins on 07-03-2023 Urea nitrogen [Mass/Vol] 13 mg/dL Normal 7-[address] [facility] Comment on above: Performed By: #### L IPID, CMP #### [address] A1C with Estimated Average G luon 07-01-2023 Glucose [Mass/Vol] 117 mg/dL Normal [facility] Comment on above: Order Comment: Reaso n for Exam Severe obesity (BMI >= 40);PCOS (polycystic ovarian syndrome Result Comment: PERF ORMED BY: [place] [address] PATHOLOGIST TRIMMER OPERATOR [employer] NESHA MAIER M.D. Performed By: #### A POB, LIPA #### [facility] , #### CMP, A1C WTH eA #### [place] [address] [place] Alanine aminotransferase [En zymatic activity/volume] in Serum or PlasmaOrdered By: Celio Mullins on 07-01-2023 ALT [Catalytic activity/Vol] 21 U/L Normal 7-[address] [facility] Comment on above: Order Comment: Reaso n for Exam Severe obesity (BMI >= 40);PCOS (polycystic ovarian syndrome NON FASTING Performed By: #### A POB, LIPA #### [facility] , #### CMP, A1C [facility] eA #### [facility] [address] [place] [address] [place] Albumin [Mass/volume] in Ser um or Plasma by Bromocresol green (BCG) dye binding methoOrdered By: Celio Mullins on 07-01-2023 Albumin BCG dye [Mass/Vol] 4.6 g/dL 3.5-5.[address] [facility] Alkaline phosphatase [Enzyma tic activity/volume] in Serum or PlasmaOrdered By: Celio Mullins on 07-01-2023 ALP [Catalytic activity/Vol] 72 U/L Normal 34-[address] [facility] Comment on above: Order Comment: Reaso n for Exam Severe obesity (BMI >= 40);PCOS (polycystic ovarian syndrome NON FASTING Result Comment: PERF ORMED BY: [place] [address] PATHOLOGIST TRIMMER OPERATOR [employer] NESHA MAIER M.D. Performed By: #### A POB, LIPA #### [facility] , #### CMP, A1C [facility] eA #### [facility] [address] [place] [address] Apolipoprotein B [Mass/volum e] in Serum or PlasmaOrdered By: Celio Mullins on 07-01-2023 Apolipoprotein B [Mass/Vol] 83 mg/dL Normal <[address] [facility] Comment on above: Desirable < 90 Charissa almanza High 90 - 99 High 100 - 130 Very High >130 ASCVD RISK THERAPEUTIC TARGET CATEGORY APO B (mg/dL) Very High Risk <80 (if extreme risk <70) High Risk <90 Moderate Risk <90Performed at: [facility] [address] [id number] Director: Jeanna Case MD, Phone: [phone] Order Comment: Reaso n for Exam Severe obesity (BMI >= 40);PCOS (polycystic ovarian syndrome Result Comment: Hedy rable < 90 Borderline High 90 - 99 High 100 - 130 Very High >130 ASCVD RISK THERAPEUTIC TARGET CATEGORY APO B (mg/dL) Very High Risk <80 (if extreme risk <70) High Risk <90 Moderate Risk <90 Performed at: [facility] [address] [id number] Doorperson: Jeanna Case MD, Phone: [phone] PERFORMED BY: [place] [address] PATHOLOGIST TRIMMER OPERATOR [employer] NESHA MAIER M.D. Performed By: #### A POB, LIPA #### [facility] , #### CMP, A1C WT eA #### [address] Aspartate aminotransferase [ Enzymatic activity/volume] in Serum or PlasmaOrdered By: Celio Mullins on 07-01-2023 AST [Catalytic activity/Vol] 19 U/L Normal 13-[address] [facility] Comment on above: Order Comment: Reaso n for Exam Severe obesity (BMI >= 40);PCOS (polycystic ovarian syndrome NON FASTING Performed By: #### A POB, LIPA #### [facility] , #### CMP, A1C WT eA #### [address] Bilirubin.total [Mass/volume ] in Serum or PlasmaOrdered By: Celio Mullins on 07-01-2023 Bilirubin [Mass/Vol] 0.4 mg/dL Normal 0.3-1.0 [facility] Comment on above: Order Comment: Reaso n for Exam Severe obesity (BMI >= 40);PCOS (polycystic ovarian syndrome NON FASTING Performed By: #### A POB, LIPA #### [facility] , #### CMP, A1C WTH eA #### [facility] [address] [place] [address] [place] Calcium [Mass/volume] in Ser um or PlasmaOrdered By: Celio Mullins on 07-01-2023 Calcium [Mass/Vol] 9.8 mg/dL Normal 8.6-10.3 [facility] Comment on above: Order Comment: Reaso n for Exam Severe obesity (BMI >= 40);PCOS (polycystic ovarian syndrome NON FASTING Performed By: #### A POB, LIPA #### [facility] , #### CMP, A1C WTH eA #### [place] [address] [place] Carbon dioxide, total [Moles /volume] in Serum or PlasmaOrdered By: Celio Mullins on 07-01-2023 CO2 [Moles/Vol] 25.3 mmol/L Normal 21.0-31.0 [facility] Comment on above: Order Comment: Reaso n for Exam Severe obesity (BMI >= 40);PCOS (polycystic ovarian syndrome NON FASTING Performed By: #### A POB, LIPA #### [facility] , #### CMP, A1C WTH eA #### [facility] [address] [place] [address] [place] Chloride [Moles/volume] in S marta or PlasmaOrdered By: Celio Mullins on 07-01-2023 Chloride [Moles/Vol] 105 mmol/L Normal 98-107 [facility] Comment on above: Order Comment: Reaso n for Exam Severe obesity (BMI >= 40);PCOS (polycystic ovarian syndrome NON FASTING Performed By: #### A POB, LIPA #### [facility] , #### CMP, A1C WTH eA #### [facility] [address] [place] [id number] [facility] Comprehensive Metabolic Pane landon 07-01-2023 Albumin [Mass/Vol] 4.6 g/dL Normal 3.5-5.7 [facility] Comment on above: Order Comment: Reaso n for Exam Severe obesity (BMI >= 40);PCOS (polycystic ovarian syndrome NON FASTING Performed By: #### A POB, LIPA #### [facility] , #### CMP, A1C WTH eA #### [place] [address] [place] GFR/1.73 sq M.predicted MDRD (S/P/Bld) [Vol rate/Area] mL/min/{1.73_m2} Normal [facility] Comment on above: Order Comment: Reaso n for Exam Severe obesity (BMI >= 40);PCOS (polycystic ovarian syndrome NON FASTING Performed By: #### A POB, LIPA #### [facility] , #### CMP, A1C WT eA #### [place] [id number] [facility] Creatinine [Mass/volume] in Serum or PlasmaOrdered By: Celio Mullins on 07-01-2023 Creatinine [Mass/Vol] 0.64 mg/dL Normal 0.60-1.20 [facility] Comment on above: Order Comment: Reaso n for Exam Severe obesity (BMI >= 40);PCOS (polycystic ovarian syndrome NON FASTING Performed By: #### A POB, LIPA #### [facility] , #### CMP, A1C WT eA #### [place] [id number] [facility] Glucose [Mass/volume] in Ser um or PlasmaOrdered By: Celio Mullins on 07-01-2023 Glucose [Mass/Vol] 95 mg/dL Normal 70-100 [facility] Comment on above: ADA recommended refe rence rangeRandom Glucose Reference Range is dependent on time and content of last meal. Glucose of more than 200 mg/dL in a nonstressed, ambulatory subject supports the diagnosis of Diabetes Mellitus. Order Comment: Reaso n for Exam Severe obesity (BMI >= 40);PCOS (polycystic ovarian syndrome NON FASTING Result Comment: [place] om Glucose Reference Range is dependent on time and content of last meal. Glucose of more than 200 mg/dL in a nonstressed, ambulatory subject supports the diagnosis of Diabetes Mellitus. ADA recommended reference range Performed By: #### A POB, LIPA #### [facility] , #### CMP, A1C WTH eA #### [facility] [address] [place] [id number] [facility] Glucose mean value [Mass/vol ume] in Blood Estimated from glycated hemoglobinOrdered By: Celio Mullisn on 07-01-2023 Average glucose Estimated from glycated hemoglobin (Bld) [Mass/Vol] 117 mg/dL [facility] Hemoglobin A1c percentageOrd ered By: Celio Mullins on 07-01-2023 HbA1c (Bld) [Mass fraction] 5.7 % High 4.3-5.[address] [facility] Comment on above: Increased risk for [...] , #### CMP, A1C WTH eA #### [facility] [address] [place] [id number] [facility] Lipoprotein (a)on 07-01-2023 Lipoprotein a [Mass/Vol] 13.0 mg/dL Normal <75.0 [facility] Comment on above: Order Comment: [...] across ethnicities. Performed at: CB - [facility] [address] [id number] Doorperson: Cassius Zhong PhD, Phone: [phone] Performed By: #### A POB, LIPA #### [facility] , #### CMP, A1C WTH eA #### [address] No Panel InformationOrdered By: Celio Mullins on 07-01-2023 Estimated GFR (CKD-EPI) > 60.0 mL/Min [facility] Creatinine Clearance (Chem N/A [facility] Potassium [Moles/volume] in Serum or PlasmaOrdered By: Celio Mullins on 07-01-2023 Potassium [Moles/Vol] 3.8 mmol/L Normal 3.5-5.1 [facility] Comment on above: Order Comment: Reaso n for Exam Severe obesity (BMI >= 40);PCOS (polycystic ovarian syndrome NON FASTING Performed By: #### A POB, LIPA #### [facility] , #### CMP, A1C WT eA #### [place] [address] [place] Protein [Mass/volume] in Ser um or PlasmaOrdered By: Celio Mullins on 07-01-2023 Protein [Mass/Vol] 7.8 g/dL Normal 6.4-8.9 [facility] Comment on above: Order Comment: Reaso n for Exam Severe obesity (BMI >= 40);PCOS (polycystic ovarian syndrome NON FASTING Performed By: #### A POB, LIPA #### [facility] , #### CMP, A1C WTH eA #### [place] [address] [place] Serum globulin measurement b y calculation (mass/volume)Ordered By: Celio Mullins on 07-01-2023 Globulin (S) [Mass/Vol] 3.2 g/dL Normal [facility] Comment on above: Order Comment: Reaso n for Exam Severe obesity (BMI >= 40);PCOS (polycystic ovarian syndrome NON FASTING Performed By: #### A POB, LIPA #### [facility] , #### CMP, A1C WTH eA #### [facility] [address] Serum or plasma albumin/glob ulin mass ratioOrdered By: Celio Mullins on 07-01-2023 Albumin/Globulin [Mass ratio] 1.4 {ratio} Normal [facility] Comment on above: Order Comment: Reaso n for Exam Severe obesity (BMI >= 40);PCOS (polycystic ovarian syndrome NON FASTING Performed By: #### A POB, LIPA #### [facility] , #### CMP, A1C WT eA #### [facility] [address] [place] [address] Serum or plasma anion gap de terminationOrdered By: Celio Mullins on 07-01-2023 Anion gap [Moles/Vol] 11.5 mmol/L Normal 6.0-15.0 [facility] Comment on above: Order Comment: Reaso n for Exam Severe obesity (BMI >= 40);PCOS (polycystic ovarian syndrome NON FASTING Performed By: #### A POB, LIPA #### [facility] , #### CMP, A1C WT eA #### [address] Serum or plasma lipoprotein a measurement (moles/volume)Ordered By: Celio Mullins on 07-01-2023 Lipoprotein a [Moles/Vol] 13.0 nmol/L <75.[address] [facility] Comment on above: Note: Values greater than or equal to 75.0 nmol/L may indicate an independent risk factor for CHD, but must be evaluated with caution when applied to non- populations due to the influence of genetic factors on Lp(a) across ethnicities.Performed at: [facility] [id number] Director: Cassius Zhong PhD, Phone: [phone] Sodium [Moles/volume] in Ser um or PlasmaOrdered By: Celio Mullins on 07-01-2023 Sodium [Moles/Vol] 138 mmol/L Normal 136-145 [facility] Comment on above: Order Comment: Reaso n for Exam Severe obesity (BMI >= 40);PCOS (polycystic ovarian syndrome NON FASTING Performed By: #### A POB, LIPA #### [facility] , #### CMP, A1C WTH eA #### [facility] [address] [place] [id number] [facility] Urea nitrogen [Mass/volume] in Serum or PlasmaOrdered By: Celio Mullins on 07-01-2023 Urea nitrogen [Mass/Vol] 16 mg/dL Normal 7-[address] [facility] Comment on above: Order Comment: Reaso n for Exam Severe obesity (BMI >= 40);PCOS (polycystic ovarian syndrome NON FASTING Performed By: #### A POB, LIPA #### [facility] , #### CMP, A1C WTH eA #### [facility] [address] [place] [id number] [facility] COVID Quick Testingon 2022 Result Negative [employer] Other SARS-CoV-2 (COVID-19) RNA NA A+probe Ql (Resp)on 02-11-2023 SARS-CoV-2 (COVID-19) RNA SURI+probe Ql (Unsp spec) Negative [facility] [employer] Other DHEA-SULFATEon 01-01-2023 DHEA-Sulfate 95.3 ug/dL Normal 84.8-378.0 [facility] Comment on above: Performed By: #### D RIMA #### [facility] [address] [place] [address] Dr. Kaushik Palomares FSHon 01-01-2023 FSH 4.6 mIU/mL Normal [facility] Comment on above: Result Comment: Adul t Female: Follicular phase 3.5 - 12.5 Ovulation phase 4.7 - 21.5 Luteal phase 1.7 - 7.7 Postmenopausal 25.8 - 134.8 Performed By: #### C BC #### [facility] [address] [address] [address] Kaushik Palomares LUTEINIZING HORMONE (LH)on 01-01-2023 LH 3.5 mIU/mL Normal [facility] Comment on above: Result Comment: Adul t Female: Follicular phase 2.4 - 12.6 Ovulation phase 14.0 - 95.6 Luteal phase 1.0 - 11.4 Postmenopausal 7.7 - 58.5 Performed By: #### L BCL #### [facility] [address] [place] [address] Dr. Kaushik Palomares CBC AUTO DIFFon 12-31-2022 BASO # 0.1 103/ul Normal 0.0-0.1 [facility] Comment on above: Performed By: #### C BC #### [facility] [address] [place] [address] Dr. Kaushik Palomares Basophils/100 WBC (Bld) 0.8 % Normal 0.2-2.0 [facility] Comment on above: Performed By: #### C BC #### [facility] [address] [place] [address] Dr. Kaushik Palomares EO # 0.1 103/ul Normal 0.0-0.7 [facility] Comment on above: Performed By: #### C BC #### [facility] [address] [place] [address] Dr. Kaushik Palomares Eosinophils/100 WBC (Bld) 1.7 % Normal 0.9-7.0 [facility] Comment on above: Performed By: #### C BC #### [facility] [address] [place] [address] Dr. Kaushik Palomares Erythrocyte distribution width (RBC) [Ratio] 12.8 % Normal 11.0-15.0 [facility] Comment on above: Performed By: #### C BC #### [facility] [address] [place] [address] Dr. Kaushik Palomares Hematocrit (Bld) [Volume fraction] 33.0 % Critically low 36.0-48.0 [facility] Comment on above: Performed By: #### C BC #### [facility] [address] [place] [address] Dr. Kaushik Palomares Hemoglobin (Bld) [Mass/Vol] 11.0 g/dL Critically low 12.0-16.0 [facility] Comment on above: Performed By: #### C BC #### [facility] [address] [address] [address] Kaushik Palomares IG # 0.03 10e3/ul Normal 0.00-0.03 [facility] Comment on above: Performed By: #### C BC #### [facility] [address] [place] [address] Dr. Kaushik Palomares IG % 0.5 % Normal 0.0-0.5 [facility] Comment on above: Performed By: #### C BC #### [facility] [address] [place] [address] Dr. Kaushik Palomares LYMPH # 2.4 103/ul Normal 1.2-3.8 [facility] Comment on above: Performed By: #### C BC #### [facility] [address] [place] [address] Dr. Kaushik Palomares Lymphocytes/100 WBC (Bld) 36.6 % Normal 20.5-60.0 [facility] Comment on above: Performed By: #### C BC #### [facility] [address] [place] [address] Dr. Kaushik Palomares MANUAL DIFF REQ NO Normal [facility] Comment on above: Performed By: #### C BC #### [facility] [address] [place] [address] Dr. Kaushik Palomares MCH (RBC) [Entitic mass] 29.0 pg Normal 26.7-34.0 [facility] Comment on above: Performed By: #### C BC #### [facility] [address] [place] [address] Dr. Kaushik Palomares MCHC (RBC) [Mass/Vol] 33.3 g/dL Normal 29.9-35.2 [facility] Comment on above: Performed By: #### C BC #### [facility] [address] [place] [address] Dr. Kaushik Palomares MCV (RBC) [Entitic vol] 87.1 fL Normal 81.0-99.0 [facility] Comment on above: Performed By: #### C BC #### [facility] [address] [address] [address] Kaushik Palomares MONO # 0.2 103/ul Critically low 0.3-0.8 [facility] Comment on above: Performed By: #### C BC #### [facility] [address] [address] [address] Kaushik Palomares Monocytes/100 WBC (Bld) 3.6 % Normal 1.7-12.0 [facility] Comment on above: Performed By: #### C BC #### [facility] [address] [address] [address] Kaushik Palomares NEUT # 3.7 103/ul Normal 1.4-6.5 [facility] Comment on above: Performed By: #### C BC #### [facility] [address] [place] [address] Dr. Kaushik Palomares Neutrophils/100 WBC (Bld) 56.8 % Normal 43.0-75.0 [facility] Comment on above: Performed By: #### C BC #### [facility] [address] [place] [address] Dr. Kaushik Palomares Platelet mean volume (Bld) [Entitic vol] 9.8 fL Normal 9.5-13.5 [facility] Comment on above: Performed By: #### C BC #### [facility] [address] [place] [address] Dr. Kaushik Palomares PLT 234 103/ul Normal 150-450 [facility] Comment on above: Performed By: #### C BC #### [facility] [address] [address] [address] Kaushik Palomares RBC 3.79 106/ul Critically low 4.20-5.40 [facility] Comment on above: Performed By: #### C BC #### [facility] [address] [address] [address] Kaushik Palomares WBC 6.5 103/ul Normal 4.0-11.0 [facility] Comment on above: Performed By: #### C BC #### [facility] [address] [place] [address] Dr. Kaushik Palomares FREE T4on 12-31-2022 Free T4 [Mass/Vol] 0.79 ng/dL Normal 0.76-1.46 [facility] Comment on above: Performed By: #### F T4 #### [facility] [address] [place] [address] Dr. Kaushik Palomares GLYCOHEMOGLOBIN A1Con 2022 ADA RECOMMENDATION SEE BELOW Normal [facility] Comment on above: Result Comment: ADA RECOMMENDED LIMIT 4.0 - 6.0 ADA THERAPEUTIC TARGET < 7.0 ACTION SUGGESTED > 7.0 Performed By: #### A 1C #### [facility] [address] [place] [address] Dr. Kaushik Palomares Glucose [Mass/Vol] 111 mg/dL Normal [facility] Comment on above: Performed By: #### A 1C #### [facility] [address] [place] [address] Dr. Kaushik Palomares HbA1c (Bld) [Mass fraction] 5.5 % Normal 4.5-6.2 [facility] Comment on above: Performed By: #### A 1C #### [facility] [address] [place] [address] Dr. Kaushik Palomares TSHon 12-31-2022 TSH 1.114 uIU/mL Normal 0.358-3.740 [facility] Comment on above: Performed By: #### C BC #### [facility] [address] [place] [address] Dr. Kaushik Palomares US PELVIS AND TRANSVAGon [...] SUGEY MACDONALD Date: 2022-11-26 15:58 Normal [facility] XR SACRUM_COCCYXon 3 XR SACRUM_COCCYX [...] SUGEY MACDONALD Date: 2022-11-08 10:01 Normal [facility] PAP ACOG PANEL 2: 30 to 65on 11-05-2022 . . Normal [facility] Comment on above: Result Comment: Perf ormed at: WB Performed By: #### C BC #### [facility] [address] [address] [address] Kaushik Palomares Age Gdln ACOG Testing 30-65 Normal [facility] Comment on above: Performed By: #### C BC #### [facility] [address] [address] [address] Kaushik Palomares DIAGNOSIS: Comment Normal [facility] Comment on above: Result Comment: NEGA TIVE FOR INTRAEPITHELIAL LESION OR MALIGNANCY. Performed at: [facility] Performed By: #### C BC #### [facility] [address] [address] [address] Kaushik Palomares HPV Aptima Negative Normal Negative [facility] Comment on above: Result Comment: This nucleic acid amplification test detects fourteen high-risk HPV types (16,18,31,33,35,39,45,51,52,56,58,59,66,68) without differentiation. Performed at: =G Performed By: #### C BC #### [facility] [address] [address] [address] Kaushik Palomares HPV Genotype Reflex Comment Normal [facility] Comment on above: Result Comment: Crit ermaico not met, HPV Genotype not performed. Performed at: WB Performed By: #### C BC #### [facility] [address] [place] [address] Dr. Kaushik Palomares Methodology: Comment Normal [facility] Comment on above: Result Comment: This liquid based ThinPrep(R) pap test was screened with the use of an image guided system. Performed at: WB Performed By: #### C BC #### [facility] [address] [place] [address] Dr. Kaushik Palomares Note: Comment Normal [facility] Comment on above: Result Comment: The Pap smear is a screening test designed to aid in the detection of premalignant and malignant conditions of the uterine cervix. It is not a diagnostic procedure and should not be used as the sole means of detecting cervical cancer. Both false-positive and false-negative reports do occur. . Performed at: WB Performed By: #### C BC #### [facility] [address] [place] [address] Dr. Kaushik Palomares Performed by: Comment Normal [facility] Comment on above: Result Comment: Robi Graham, Wrapper Cashier (ASCP) Performed at: WB Performed By: #### C BC #### [facility] [address] [place], [place] [id number] Dr. Kaushik Palomares Specimen adequacy: Comment Normal [facility] Comment on above: Result Comment: Sati sfactory for evaluation. Endocervical and/or squamous metaplastic cells (endocervical component) are present. Performed at: WB Performed By: #### C BC #### [facility] [address] [place] [address] Dr. Kaushik Palomares COVID/FLU RT-PCRon SARS-CoV-2 (COVID-19) RNA SURI+probe Ql (Unsp spec) Negative [facility] [employer] Other COVID/FLU RT-PCR Negative [facility] [employer] Other HCG-BETA SUBUNIT QUANTon hCG,Beta Subunit,Qnt,Serum <1 Normal [facility] Comment on above: Result Comment: Fema le (Non-) 0 - 5 (Postmenopausal) 0 - 8 . Female () Weeks of Gestation 3 6 - 71 4 10 - 750 5 630 - 2046 6 507 - [phone] 7 [phone] 8 [phone] 9 [id number] [phone] 10 [phone] -[phone] 12 [phone] -[phone] 14 87839 - 74330 15 20442 - 69886 16 2612 - 11295 17 9182 - [id number] 18 2830 - [phone] Rg ECLIA methodology Performed By: #### H CGSUB #### [facility] [address] [place] [address] Dr. Kaushik Palomares T4 LABCORPon 01-22-2022 T4 [Mass/Vol] 7.8 ug/dL Normal 4.5-12.0 [facility] Comment on above: Performed By: #### T 4LC #### [facility] [address] [place] [address] Dr. Kaushik Palomares CBC AUTO DIFFon 01-21-2022 BASO # 0.1 103/ul Normal 0.0-0.1 [facility] Comment on above: Performed By: #### C BC #### [facility] [address] [place] [address] Dr. Kaushik Palomares Basophils/100 WBC (Bld) 0.6 % Normal 0.2-2.0 [facility] Comment on above: Performed By: #### C BC #### [facility] [address] [place] [address] Dr. Kaushik Palomares EO # 0.1 103/ul Normal 0.0-0.7 [facility] Comment on above: Performed By: #### C BC #### [facility] [address] [place] [address] Dr. Kaushik Palomares Eosinophils/100 WBC (Bld) 1.2 % Normal 0.9-7.0 [facility] Comment on above: Performed By: #### C BC #### [facility] [address] [place] [address] Dr. Kaushik Palomares Erythrocyte distribution width (RBC) [Ratio] 13.3 % Normal 11.0-15.0 [facility] Comment on above: Performed By: #### C BC #### [facility] [address] [place] [address] Dr. Kaushik Palomares Hematocrit (Bld) [Volume fraction] 40.0 % Normal 36.0-48.0 [facility] Comment on above: Performed By: #### C BC #### [facility] [address] [place] [address] Dr. Kaushik Palomares Hemoglobin (Bld) [Mass/Vol] 12.7 g/dL Normal 12.0-16.0 [facility] Comment on above: Performed By: #### C BC #### [facility] [address] [place] [address] Dr. Kaushik Palomares IG # 0.02 10e3/ul Normal 0.00-0.03 [facility] Comment on above: Performed By: #### C BC #### [facility] [address] [place] [address] Dr. Kaushik Palomares IG % 0.2 % Normal 0.0-0.5 [facility] Comment on above: Performed By: #### C BC #### [facility] [address] [place] [address] Dr. Kaushik Palomares LYMPH # 3.0 103/ul Normal 1.2-3.8 [facility] Comment on above: Performed By: #### C BC #### [facility] [address] [place] [address] Dr. Kaushik Palomares Lymphocytes/100 WBC (Bld) 32.9 % Normal 20.5-60.0 [facility] Comment on above: Performed By: #### C BC #### [facility] [address] [place] [address] Dr. Kaushik Palomares MANUAL DIFF REQ NO Normal [facility] Comment on above: Performed By: #### C BC #### [facility] [address] [place] [address] Dr. Kaushik Palomares MCH (RBC) [Entitic mass] 28.5 pg Normal 26.7-34.0 [facility] Comment on above: Performed By: #### C BC #### [facility] [address] [place] [address] Dr. Kaushik Palomares MCHC (RBC) [Mass/Vol] 31.8 g/dL Normal 29.9-35.2 [facility] Comment on above: Performed By: #### C BC #### [facility] [address] [place] [address] Dr. Kaushik Palomares MCV (RBC) [Entitic vol] 89.7 fL Normal 81.0-99.0 [facility] Comment on above: Performed By: #### C BC #### [facility] [address] [place] [address] Dr. Kaushik Palomares MONO # 0.5 103/ul Normal 0.3-0.8 [facility] Comment on above: Performed By: #### C BC #### [facility] [address] [place] [address] Dr. Kaushik Palomares Monocytes/100 WBC (Bld) 5.1 % Normal 1.7-12.0 [facility] Comment on above: Performed By: #### C BC #### [facility] [address] [place] [address] Dr. Kaushik Palomares NEUT # 5.4 103/ul Normal 1.4-6.5 [facility] Comment on above: Performed By: #### C BC #### [facility] [address] [place] [address] Dr. Kaushik Palomares Neutrophils/100 WBC (Bld) 60.0 % Normal 43.0-75.0 [facility] Comment on above: Performed By: #### C BC #### [facility] [address] [address] [address] Kaushik Palomares Platelet mean volume (Bld) [Entitic vol] 9.3 fL Critically low 9.5-13.5 [facility] Comment on above: Performed By: #### C BC #### [facility] [address] [address] [address] Kaushik Palomares PLT 221 103/ul Normal 150-450 [facility] Comment on above: Performed By: #### C BC #### [facility] [address] [address] [address] Kaushik Palomares RBC 4.46 106/ul Normal 4.20-5.40 [facility] Comment on above: Performed By: #### C BC #### [facility] [address] [place] [address] Dr. Kauhsik Palomares WBC 9.0 103/ul Normal 4.0-11.0 [facility] Comment on above: Performed By: #### C BC #### [facility] [address] [place] [address] Dr. Kaushik Palomares GLYCOHEMOGLOBIN A1Con 2021 ADA RECOMMENDATION SEE BELOW Normal [facility] Comment on above: Result Comment: ADA RECOMMENDED LIMIT 4.0 - 6.0 ADA THERAPEUTIC TARGET < 7.0 ACTION SUGGESTED > 7.0 Performed By: #### C BC #### [facility] [address] [place] [address] Dr. Kaushik Palomares Glucose [Mass/Vol] 94 mg/dL Normal [facility] Comment on above: Performed By: #### C BC #### [facility] [address] [address] [address] Kaushik Palomares HbA1c (Bld) [Mass fraction] 4.9 % Normal 4.5-6.2 [facility] Comment on above: Performed By: #### C BC #### [facility] [address] [place] [address] Dr. Kaushik Palomares LIPID PROFILEon 01-21-2022 CHOL-HDL RATIO NORM SEE BELOW Normal [facility] Comment on above: Result Comment: 3.3 - 4.4 LOW RISK 4.4 - 7.1 AVERAGE RISK 7.1 - 11.0 MODERATE RISK >11.0 HIGH RISK Performed By: #### L IPID, CMP, TSH #### [facility] [address] [address] [address] Kaushik Palomares Cholesterol [Mass/Vol] 168 mg/dL Normal <=200 [facility] Comment on above: Performed By: #### L IPID, CMP, TSH #### [facility] [address] [address] [address] Kaushik Palomares Cholesterol in HDL [Mass/Vol] 41 mg/dL Normal 40-60 [facility] Comment on above: Performed By: #### L IPID, CMP, TSH #### [facility] [address] [address] [address] Kaushik Palomares Cholesterol in LDL [Mass/Vol] 90.2 mg/dL Normal [facility] Comment on above: Performed By: #### L IPID, CMP, TSH #### [facility] [address] [address] [address] Kaushik Palomares Cholesterol.total/Mali sterol in HDL [Mass ratio] 4.1 {ratio} Normal [facility] Comment on above: Performed By: #### L IPID, CMP, TSH #### [facility] [address] [address] [address] Kaushik Palomares HDL NORMAL > or = 60 mg/dl - LO W CARDIOVASCULAR RISK <40 mg/dl - HIGH CARDIOVASCULAR RISK Normal [facility] Comment on above: Performed By: #### L IPID, CMP, TSH #### [facility] [address] [address] [address] Kaushik Palomares LDL CALC NORMAL SEE BELOW Normal [facility] Comment on above: Result Comment: <100 mg/dl OPTIMAL 100 - 129 mg/dl NEAR OR ABOVE OPTIMAL 130 - 159 mg/dl BORDERLINE HIGH 160 - 189 mg/dl HIGH >190 mg/dl VERY HIGH Performed By: #### L IPID, CMP, TSH #### [facility] [address] [address] [address] Kaushik Palomares Triglyceride [Mass/Vol] 184 mg/dL Critically high <=150 [facility] Comment on above: Performed By: #### L IPID, CMP, TSH #### [facility] [address] [address] [address] Kaushik Palomares VLDL CALC 36.8 mg/dL Normal [facility] Comment on above: Performed By: #### L IPID, CMP, TSH #### [facility] [address] [address] [address] Kaushik Palomares MICROALBUMIN, RAND URon - mALB 2.0 mg/L Normal <=30.0 [facility] Comment on above: Performed By: #### C BC #### [facility] [address] [place] [address] Dr. Kaushik Palomares PROF 14(COMP METB)on 022 Albumin [Mass/Vol] 3.7 g/dL Normal 3.4-5.0 [facility] Comment on above: Performed By: #### L IPID, CMP, TSH #### [facility] [address] [place] [address] Dr. Kaushik Palomares Albumin/Globulin [Mass ratio] 0.9 {ratio} Normal [facility] Comment on above: Performed By: #### L IPID, CMP, TSH #### [facility] [address] [place] [address] Dr. Kaushik Palomares ALP [Catalytic activity/Vol] 53 U/L Normal 46-116 [facility] Comment on above: Performed By: #### L IPID, CMP, TSH #### [facility] [address] [place] [address] Dr. Kaushik Palomares ALT [Catalytic activity/Vol] 44 U/L Normal 14-59 [facility] Comment on above: Performed By: #### L IPID, CMP, TSH #### [facility] [address] [place] [address] Dr. Kaushik Palomares Anion gap [Moles/Vol] 6.8 mmol/L Normal [facility] Comment on above: Performed By: #### L IPID, CMP, TSH #### [facility] [address] [address] [address] Kaushik Palomares AST [Catalytic activity/Vol] 22 U/L Normal 15-37 [facility] Comment on above: Performed By: #### L IPID, CMP, TSH #### [facility] [address] [address] [address] Kaushik Palomares Bilirubin [Mass/Vol] 0.3 mg/dL Normal 0.2-1.0 [facility] Comment on above: Performed By: #### L IPID, CMP, TSH #### [facility] [address] [address] [address] Kaushik Palomares Calcium [Mass/Vol] 9.2 mg/dL Normal 8.5-10.1 [facility] Comment on above: Performed By: #### L IPID, CMP, TSH #### [facility] [address] [place] [address] Dr. Kaushik Palomares Chloride [Moles/Vol] 102 mmol/L Normal 98-107 [facility] Comment on above: Performed By: #### L IPID, CMP, TSH #### [facility] [address] [address] [address] Kaushik Palomares CO2 [Moles/Vol] 31.4 mmol/L Normal 21.0-32.0 [facility] Comment on above: Performed By: #### L IPID, CMP, TSH #### [facility] [address] [address] [address] Kaushik Palomares Creatinine [Mass/Vol] 0.71 mg/dL Normal 0.55-1.02 [facility] Comment on above: Performed By: #### L IPID, CMP, TSH #### [facility] [address] [place] [address] Dr. Kaushik Palomares EGFR-AF SALVADOREAN >60 Normal >=60 [facility] Comment on above: Performed By: #### L IPID, CMP, TSH #### [facility] [address] [address] [address] Kaushik Palomares EGFR-NON AF SALVADOREAN >60 Normal >=60 [facility] Comment on above: Performed By: #### L IPID, CMP, TSH #### [facility] [address] [address] [address] Kaushik Palomares Globulin (S) [Mass/Vol] 4.2 g/dL Normal [facility] Comment on above: Performed By: #### L IPID, CMP, TSH #### [facility] [address] [address] [address] Kaushik Palomares Glucose [Mass/Vol] 93 mg/dL Normal 74-106 [facility] Comment on above: Performed By: #### L IPID, CMP, TSH #### [facility] [address] [place] [address] Dr. Kaushik Palomares Potassium [Moles/Vol] 4.2 mmol/L Normal 3.5-5.1 [facility] Comment on above: Performed By: #### L IPID, CMP, TSH #### [facility] [address] [place] [address] Dr. Kaushik Palomares Protein [Mass/Vol] 7.9 g/dL Normal 6.4-8.2 [facility] Comment on above: Performed By: #### L IPID, CMP, TSH #### [facility] [address] [place] [address] Dr. Kaushik Palomares Sodium [Moles/Vol] 136 mmol/L Normal 136-145 [facility] Comment on above: Performed By: #### L IPID, CMP, TSH #### [facility] [address] [place] [address] Dr. Kaushik Palomares Urea nitrogen [Mass/Vol] 11.0 mg/dL Normal 7.0-18.0 [facility] Comment on above: Performed By: #### L IPID, CMP, TSH #### [facility] [address] [place] [address] Dr. Kaushik Palomares Urea nitrogen/Creatinine [Mass ratio] 15.5 mg/mg Normal [facility] Comment on above: Performed By: #### L IPID, CMP, TSH #### [facility] [address] [place] [address] Dr. Kaushik Palomares TSHon 01-21-2022 TSH 1.298 uIU/mL Normal 0.358-3.740 [facility] Comment on above: Performed By: #### C BC #### [facility] [address] [address] [address] Kaushik Palomares TSH RANGE SEE BELOW Normal [facility] Comment on above: Result Comment: <0.3 4 UIU/ml HYPERTHYROID 0.34-5.60 UIU/ml EUTHYROID >5.60 UIU/ml HYPOTHYROID Performed By: #### C BC #### [facility] [address] [address] [address] Kaushik Palomares COVID Quick Testingon 2020 Result Negative [employer] Other Quick Strepon 06-17-2021 S. pyogenes Org specific cx Ql (Throat) Negative [employer] Other Quick Strep [employer] Other Urinalysis - AUTOMATEDon Appearance (U) cloudy [employer] Other Bilirubin Ql (U) Negative [employer] Other Color (U) yellow [employer] Other Glucose Ql (U) Negative [employer] Other Hemoglobin Ql (U) large [employer] Other Ketones Ql (U) Negative [employer] Other Leukocyte esterase Test strip Ql (U) trace [employer] Other Nitrite Ql (U) Positive [employer] Other pH (U) 5.5 [pH] [employer] Other Protein Ql (U) 100 [employer] Other Specific gravity (U) [Rel density] 1.025 [employer] Other Urobilinogen (U) [Mass/Vol] 0.2 mg/dL [facility] [employer] Other [facility]inalysis - [facility]OMATED [facility] Other Urine Cultureon 05-31-2021 Urine Culture >100,000 [facility] [employer] Other Urine Culture <16 [facility] [employer] Other Urine Culture >16 [facility] [employer] Other Urine Culture <4 [facility] [employer] Other Urine Culture 8 [facility] [employer] Other Urine Culture <2 [facility] [employer] Other Urine Culture <1 [facility] [employer] Other Urine Culture >2 [facility] [employer] Other Urine Culture <0.5 [facility] [employer] Other Urine Culture >8 [facility] [employer] Other Urine Culture >4 [facility] [employer] Other Urine Culture <32 [facility] [employer] Other Urine Culture >2/38 [facility] [employer] Other Vital Signs Date Time Vital Sign Value 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 11-26-2023 08:40-0400 Body height 162.56 cm ROSITA Marc Work Phone: [facility] 11-26-2023 08:40-0400 Body mass index (BMI) [Ratio] 52.9 kg/m2 ROSITA Marc Work Phone: [facility] 11-26-2023 08:40-0400 Body weight 139.79 kg ROSITA Marc Work Phone: [facility] 11-26-2023 08:40-0400 Diastolic blood pressure 79 mm[Hg] ROSITA Barclayrbacher Work Phone: [facility] 11-26-2023 08:40-0400 Heart rate 97 /min PUBLIC HEALTH SANITARIAN TECHNICIANJosé Miguel ThaoManisha Denyrbacher Work Phone: [facility] 11-26-2023 08:40-0400 SaO2% (BldA) [Mass fraction] 99 % PUBLIC HEALTH SANITARIAN TECHNICIANJosé Miguel ColladoManisha Charlyacher Work Phone: [facility] 11-26-2023 08:40-0400 Systolic blood pressure 131 mm[Hg] PUBLIC HEALTH SANITARIAN TECHNICIANJosé Miguel Barclayrbacher Work Phone: [facility] 11-03-2023 14:06-0400 Body height 162.56 cm PUBLIC HEALTH SANITARIAN TECHNICIANJosé Miguel ColladoManisha Charlyacher Work Phone: [facility] 11-03-2023 14:06-0400 Body mass index (BMI) [Ratio] 53.1 kg/m2 PUBLIC HEALTH SANITARIAN TECHNICIANJosé Miguel Parksacher Work Phone: [facility] 11-03-2023 14:06-0400 Body weight 140.61 kg PUBLIC HEALTH SANITARIAN TECHNICIANJosé Miguel Parksacher Work Phone: [facility] 11-03-2023 14:06-0400 Diastolic blood pressure 78 mm[Hg] ROSITA Colladofer Charlyacher Work Phone: [facility] 11-03-2023 14:06-0400 Heart rate 105 /min PUBLIC HEALTH SANITARIAN TECHNICIANJosé Miguel Parksacher Work Phone: [facility] 11-03-2023 14:06-0400 SaO2% (BldA) [Mass fraction] 98 % PUBLIC HEALTH SANITARIAN TECHNICIANJosé Miguel ColladoManisha Charlyacher Work Phone: [facility] 11-03-2023 14:06-0400 Systolic blood pressure 118 mm[Hg] ROSITA Barclayrbacher Work Phone: [facility] 10-08-2023 10:50-0500 Body height 162.56 cm ROSITA Barclayrbacher Work Phone: [facility] 10-08-2023 10:50-0500 Body weight 139.25 kg PUBLIC HEALTH SANITARIAN TECHNICIANJosé Miguel Barclayrbacher Work Phone: [facility] 10-01-2023 09:20-0500 Body height 162.56 cm PUBLIC HEALTH SANITARIAN TECHNICIANJosé Miguel Barclayrbacher Work Phone: [facility] 10-01-2023 09:20-0500 Body mass index (BMI) [Ratio] 53.6 kg/m2 PUBLIC HEALTH SANITARIAN TECHNICIANJosé Miguel Barclayrbacher Work Phone: [facility] 10-01-2023 09:20-0500 Body weight 141.69 kg PUBLIC HEALTH SANITARIAN TECHNICIANJosé Miguel Barclayrbacher Work Phone: [facility] 10-01-2023 09:20-0500 Diastolic blood pressure 75 mm[Hg] PUBLIC HEALTH SANITARIAN TECHNICIANJosé Miguel Barclayrbacher Work Phone: [facility] 10-01-2023 09:20-0500 Heart rate 85 /min PUBLIC HEALTH SANITARIAN TECHNICIANJosé Miguel Barclayrbacher Work Phone: [facility] 10-01-2023 09:20-0500 Respiratory rate 18 /min PUBLIC HEALTH SANITARIAN TECHNICIANJosé Miguel Barclayrbacher Work Phone: [facility] 10-01-2023 09:20-0500 SaO2% (BldA) [Mass fraction] 99 % PUBLIC HEALTH SANITARIAN TECHNICIANJosé Miguel Parksacher Work Phone: [facility] 10-01-2023 09:20-0500 Systolic blood pressure 123 mm[Hg] PUBLIC HEALTH SANITARIAN TECHNICIANJosé Miguel Barclayrbacher Work Phone: [facility] 09-03-2023 08:00-0500 Body height 162.56 cm PUBLIC HEALTH SANITARIAN TECHNICIANJosé Miguel Barclayrbacher Work Phone: [facility] 09-03-2023 08:00-0500 Body weight 138.79 kg PUBLIC HEALTH SANITARIAN TECHNICIANJosé Miguel Barclayrbacher Work Phone: [facility] 09-03-2023 08:00-0500 Diastolic blood pressure 78 mm[Hg] PUBLIC HEALTH SANITARIAN TECHNICIAN Manisha Tari Work Phone: [facility] 09-03-2023 08:00-0500 Systolic blood pressure 118 mm[Hg] PUBLIC HEALTH SANITARIAN TECHNICIAN Manisha Charlyachetad Work Phone: [facility] 08-19-2023 09:45-0500 Body height 162.56 cm Nely Cruz Other [facility] 08-13-2023 14:00-0500 Body height 162.56 cm Manisha Marc Other [facility] 08-13-2023 14:00-0500 Body mass index (BMI) [Ratio] 52.35 kg/m2 Manisha Marc Other [employer] Other 08-13-2023 14:00-0500 Body weight 138.35 kg Manisha Marc Other [employer] Other 08-13-2023 14:00-0500 Body weight 138.34 kg ROSITA Manisha Tari Work Phone: [facility] 08-13-2023 14:00-0500 Diastolic blood pressure 80 mm[Hg] Manisha Marc Other [facility] 08-13-2023 14:00-0500 SaO2% (BldA) [Mass fraction] 98 % Manisha Marc Other [employer] Other 08-13-2023 14:00-0500 Systolic blood pressure 114 mm[Hg] Manisha Marc Other [facility] 07-15-2023 07:45-0500 Body height 162.56 cm Celio Mullins Other [facility] 07-15-2023 07:45-0500 Body mass index (BMI) [Ratio] 52.98 kg/m2 Celio Mullins Other [employer] Other 07-15-2023 07:45-0500 Body weight 140.03 kg Celio Mullins Other [employer] Other 07-15-2023 07:45-0500 Body weight 140.02 kg ROSITA Colladofer Tari Work Phone: [facility] 07-15-2023 07:45-0500 Diastolic blood pressure 66 mm[Hg] Celio Mullins Other [facility] 07-15-2023 07:45-0500 Respiratory rate 18 /min Celio Mullins Other [employer] Other 07-15-2023 07:45-0500 SaO2% (BldA) [Mass fraction] 98 % Celio Mullins Other [employer] Other 07-15-2023 07:45-0500 Systolic blood pressure 112 mm[Hg] Celio Mullins Other [facility] 07-07-2023 11:15-0500 Body height 162.56 cm Michelle Ernandez Other [facility] 07-07-2023 11:15-0500 Body mass index (BMI) [Ratio] 52.69 kg/m2 Michelle Ernandez Other [employer] Other 07-07-2023 11:15-0500 Body temperature 98 [degF] Michelle Ernandez Other [employer] Other 07-07-2023 11:15-0500 Body weight 139.26 kg Michelle Oma Other [employer] Other 07-07-2023 11:15-0500 Body weight 139.25 kg ROSITA Marc Work Phone: [facility] 07-07-2023 11:15-0500 Respiratory rate 20 /min Michelle Oma Other [employer] Other 07-07-2023 11:15-0500 SaO2% (BldA) [Mass fraction] 98 % Michelle Oma Other [employer] Other 06-29-2023 10:20-0500 Body height 162.56 cm Michelle Oma Other [employer] Other 06-29-2023 10:20-0500 Body mass index (BMI) [Ratio] 53.03 kg/m2 Michelle Oma Other [employer] Other 06-29-2023 10:20-0500 Body temperature 99.7 [degF] Michelle Oma Other [employer] Other 06-29-2023 10:20-0500 Body weight 140.16 kg Michelle Oma Other [employer] Other 06-29-2023 10:20-0500 Respiratory rate 19 /min Michelle Oma Other [employer] Other 06-29-2023 10:20-0500 SaO2% (BldA) [Mass fraction] 98 % Michelle Oma Other [employer] Other 06-11-2023 15:30-0400 Body height 162.56 cm Manisha Barclayfani Other [facility] Other 06-11-2023 15:30-0400 Body mass index (BMI) [Ratio] 53.79 kg/m2 Manisha Barclayeliudmarycarmentad Other [facility] Other 06-11-2023 15:30-0400 Body weight 142.16 kg Manisha Tari Other [facility] Other 06-11-2023 15:30-0400 Diastolic blood pressure 62 mm[Hg] Manisha Barclayeliudmarycarmentad Other [facility] Other 06-11-2023 15:30-0400 SaO2% (BldA) [Mass fraction] 99 % Manisha Barclayfani Other [facility] Other 06-11-2023 15:30-0400 Systolic blood pressure 126 mm[Hg] Manisha Keanetad Other [facility] Other 05-06-2023 13:40-0400 Body height 162.56 cm Casandra Hassan Other [facility] Other 05-06-2023 13:40-0400 Body mass index (BMI) [Ratio] 53.65 kg/m2 Casandra Hassan Other [facility] Other 05-06-2023 13:40-0400 Body temperature 98.4 [degF] Casandra Hassan Other [facility] Other 05-06-2023 13:40-0400 Body weight 141.8 kg Casandra Hassan Other [facility] Other 05-06-2023 13:40-0400 Diastolic blood pressure 81 mm[Hg] Casandra Tesfayeley Other [facility] Other 05-06-2023 13:40-0400 Respiratory rate 18 /min Casandra Tesfayeley Other [facility] Other 05-06-2023 13:40-0400 SaO2% (BldA) [Mass fraction] 95 % Casandra Hassan Other [facility] Other 05-06-2023 13:40-0400 Systolic blood pressure 134 mm[Hg] Casandra Sonya Other [facility] Other 04-30-2023 08:30-0400 Body height 162.56 cm Manisha Marc Other [facility] Other 04-30-2023 08:30-0400 Body mass index (BMI) [Ratio] 53.86 kg/m2 Manisha Marc Other [facility] Other 04-30-2023 08:30-0400 Body weight 142.34 kg Manisha Marc Other [facility] Other 04-30-2023 08:30-0400 Diastolic blood pressure 82 mm[Hg] Manisha Marc Other [facility] Other 04-30-2023 08:30-0400 SaO2% (BldA) [Mass fraction] 100 % Manisha Marc Other [facility] Other 04-30-2023 08:30-0400 Systolic blood pressure 120 mm[Hg] Manisha Barclayeliudgareth Other [facility] Other 04-29-2023 07:00-0400 Body height 162.56 cm Nely [employer] Other [facility] Other 04-29-2023 07:00-0400 Body mass index (BMI) [Ratio] 54.41 kg/m2 [employer] Other [facility] Other 04-29-2023 07:00-0400 Body weight 143.79 kg Nely Momot Other [facility] Other 03-25-2023 13:45-0400 Body height 162.56 cm Celio [employer] Other [facility] Other 03-25-2023 13:45-0400 Body mass index (BMI) [Ratio] 55.45 kg/m2 [employer] Other [facility] Other 03-25-2023 13:45-0400 Body weight 146.56 kg CelioOrgenesis Other [facility] Other 03-25-2023 13:45-0400 Diastolic blood pressure 57 mm[Hg] [employer] Other [facility] Other 03-25-2023 13:45-0400 Respiratory rate 18 /min [employer] Other [facility] Other 03-25-2023 13:45-0400 SaO2% (BldA) [Mass fraction] 97 % [employer] Other [facility] Other 03-25-2023 13:45-0400 Systolic blood pressure 106 mm[Hg] Celio Mullins Other [facility] Other 02-11-2023 12:15-0400 Body height 163.83 cm Casandra Hassan Other [facility] Other 02-11-2023 12:15-0400 Body mass index (BMI) [Ratio] 54.88 kg/m2 Casandra Hassan Other [facility] Other 02-11-2023 12:15-0400 Body temperature 98 [degF] Casandra Hassan Other [facility] Other 02-11-2023 12:15-0400 Body weight 147.33 kg Casandra Hassan Other [facility] Other 02-11-2023 12:15-0400 Diastolic blood pressure 85 mm[Hg] Casandra Hassan Other [facility] Other 02-11-2023 12:15-0400 Respiratory rate 18 /min Casandra Hassan Other [facility] Other 02-11-2023 12:15-0400 SaO2% (BldA) [Mass fraction] 98 % Casandra Hassan Other [facility] Other 02-11-2023 12:15-0400 Systolic blood pressure 128 mm[Hg] Casandra Hassan Other [facility] Other 07-13-2022 11:15-0500 Body height 163.83 cm Michelle Ernandez Other [facility] Other 07-13-2022 11:15-0500 Body mass index (BMI) [Ratio] 51.54 kg/m2 Michelle Oma Other [facility] Other 07-13-2022 11:15-0500 Body temperature 96.6 [degF] Michelle Oma Other [facility] Other 07-13-2022 11:15-0500 Body weight 138.35 kg Michelle Oma Other [facility] Other 07-13-2022 11:15-0500 Respiratory rate 18 /min Michelle Oma Other [facility] Other 07-13-2022 11:15-0500 SaO2% (BldA) [Mass fraction] 96 % Michelle Oma Other [facility] Other 07-06-2021 13:00-0500 Body height 163.83 cm Michelle Oma Other [facility] Other 07-06-2021 13:00-0500 Body mass index (BMI) [Ratio] 49 kg/m2 Michelle Oma Other [facility] Other 07-06-2021 13:00-0500 Body temperature 97.5 [degF] Michelle Oma Other [facility] Other 07-06-2021 13:00-0500 Body weight 131.54 kg Michelle Oma Other [facility] Other 07-06-2021 13:00-0500 SaO2% (BldA) [Mass fraction] 96 % Michelle Oma Other [facility] Other 06-17-2021 11:00-0400 Body height 163.83 cm Michelle Oma Other [facility] Other 06-17-2021 11:00-0400 Body mass index (BMI) [Ratio] 49.68 kg/m2 Michelle Oma Other [facility] Other 06-17-2021 11:00-0400 Body temperature 98.3 [degF] Michelle Oma Other [facility] Other 06-17-2021 11:00-0400 Body weight 133.36 kg Michelle Oma Other [facility] Other 06-17-2021 11:00-0400 Respiratory rate 18 /min Michelle Oma Other [facility] Other 06-17-2021 11:00-0400 SaO2% (BldA) [Mass fraction] 96 % Michelle Oma Other [facility] Other 05-31-2021 13:50-0400 Body height 163.83 cm Michelle Oma Other [facility] Other 05-31-2021 13:50-0400 Body mass index (BMI) [Ratio] 50.36 kg/m2 Michelle Oma Other [facility] Other 05-31-2021 13:50-0400 Body temperature 97.8 [degF] Michelle Oma Other [facility] Other 05-31-2021 13:50-0400 Body weight 135.17 kg Michelle Oma Other [facility] Other 05-31-2021 13:50-0400 Diastolic blood pressure 90 mm[Hg] Michelle Ernandez Other [facility] Other 05-31-2021 13:50-0400 Respiratory rate 18 /min Michelle Ernandez Other [facility] Other 05-31-2021 13:50-0400 SaO2% (BldA) [Mass fraction] 98 % Michelle Ernandez Other [facility] Other 05-31-2021 13:50-0400 Systolic blood pressure 150 mm[Hg] Michelle Ernandez Other [facility] Other Encounters Encounter Date Encounter Type Care Provider Facility Start: 04-03-2024 ambulatory Edward Richey acility:[facility] Start: 03-16-2024 End: 03-16-2024 ambulatory MELA ANDERSON Not Available Start: 01-19-2024 End: 01-19-2024 ambulatory Bud Combs MD Facility:[facility] Start: 01-01-2024 Registered Recurring ROSITA Marc Work Phone: [facility] Start: 11-26-2023 End: 11-26-2023 ambulatory ROSITA Marc Work Phone: [facility] Work Phone: Start: 11-26-2023 End: 11-26-2023 Patient encounter procedure ROSITA Marc Work Phone: [facility] Work Phone: Start: 11-03-2023 End: 11-03-2023 ambulatory ROSITA Marc Work Phone: [facility] Work Phone: Start: 11-03-2023 End: 11-03-2023 Patient encounter procedure ROSITA Marc Work Phone: [facility] Work Phone: Start: 11-03-2023 End: 11-03-2023 ambulatory TOBIAS OSCAR Not Available Start: 10-30-2023 Non-patient / Non-visit PUBLIC HEALTH SANITARIAN TECHNICIANJosé Miguel Marc Work Phone: [facility] Work Phone: Start: 10-08-2023 End: 10-08-2023 Patient encounter procedure ROSITA Marc Work Phone: [facility] [place] Work Phone: Start: 10-08-2023 End: 10-08-2023 ambulatory ROSITA Marc Work Phone: [facility] Work Phone: Start: 10-06-2023 Non-patient / Non-visit ROSITA Marc Work Phone: [facility] Work Phone: Start: 10-06-2023 End: 10-06-2023 ambulatory Bud Combs MD Facility: [facility] Start: 10-01-2023 End: 10-01-2023 Patient encounter procedure ROSITA Marc Work Phone: [facility] Work Phone: Start: 10-01-2023 End: 10-01-2023 ambulatory ROSITA Marc Work Phone: [facility] Work Phone: Start: 09-10-2023 Registered Recurring ROSITA Marc Work Phone: [facility] Start: 09-08-2023 End: 09-08-2023 ambulatory Bud Combs MD Facility:[facility] Start: 09-03-2023 End: 09-03-2023 Patient encounter procedure ROSITA Marc Work Phone: [facility]- Start: 08-19-2023 IBT FOR OBESITY GROU P 2-10 30M Nely Cruz [facility] Start: 08-19-2023 End: 08-19-2023 ambulatory Manisha Marc [facility] [employer] Other Start: 08-19-2023 Registered Recurring ROSITA Marc Work Phone: [facility] Work Phone: Start: 08-19-2023 End: 08-19-2023 Patient encounter procedure ROSITA Marc Work Phone: [facility] Work Phone: Start: 08-14-2023 Registered Recurring ROSITA Marc Work Phone: [facility] [employer] Start: 08-13-2023 End: 08-13-2023 ambulatory Manisha Marc Other [facility] [employer] Other Start: 08-13-2023 Office outpatient visit 15 minutes Manisha Marc [facility] Start: 08-13-2023 End: 08-13-2023 Patient encounter procedure ROSITA Marc Work Phone: [facility] Work Phone: Start: 07-24-2023 End: 07-24-2023 ambulatory MELA ANDERSON Not Available Start: 07-21-2023 End: 07-21-2023 ambulatory Bud Combs MD Facility: [facility] Start: 07-19-2023 End: 07-19-2023 ambulatory PUBLIC HEALTH SANITARIAN TECHNICIANJosé Miguel Marc Work Phone: [facility] Work Phone: Start: 07-19-2023 End: 07-19-2023 Patient encounter procedure ROSITA Marc Work Phone: [facility]-[employer] [facility] Start: 07-15-2023 End: 07-15-2023 ambulatory Celio Mullins Other [facility] Other Start: 07-15-2023 Follow-up encounter Celio Mullins [facility] Start: 07-15-2023 End: 07-15-2023 Patient encounter procedure PUBLIC HEALTH SANITARIAN TECHNICIANJosé Miguel Marc Work Phone: [facility] Work Phone: Start: 07-07-2023 End: 07-07-2023 ambulatory Michelle Ernandez Other [facility] Other Start: 07-07-2023 Office outpatient visit 15 minutes Michelle Ernandez [facility] Start: 07-07-2023 End: 07-07-2023 Patient encounter procedure ROSITA Marc Work Phone: [facility] Work Phone: Start: 07-03-2023 Registered Recurring ROSITA Marc Work Phone: [facility] Start: 07-03-2023 End: 07-03-2023 Patient encounter procedure ROSITA Marc Work Phone: [facility] [place] Work Phone: Start: 07-03-2023 End: 07-03-2023 ambulatory ROSITA Marc Work Phone: [facility] Work Phone: Start: 07-01-2023 End: 07-01-2023 Patient encounter procedure PUBLIC HEALTH SANITARIAN TECHNICIAN Manisha Marc Work Phone: [facility] [place] Work Phone: Start: 07-01-2023 End: 07-01-2023 ambulatory Manisha Marc Facility:[facility] Start: 06-29-2023 End: 06-29-2023 ambulatory Michelle Oma Other [facility] Other Start: 06-29-2023 Office outpatient visit 15 minutes Michelle Ernandez [facility] Start: 06-17-2023 Registered Recurring PUBLIC HEALTH SANITARIAN TECHNICIAN Layla Marc Work Phone: [facility] Work Phone: Start: 06-11-2023 End: 06-11-2023 ambulatory Manisha Marc Other [facility] Other Start: 06-11-2023 Office outpatient visit 25 minutes Manisha Marc [facility] Start: 05-06-2023 End: 05-06-2023 ambulatory Casandra Hassan Other [facility] Other Start: 05-06-2023 Office outpatient visit 10 minutes Casandra Hassan [facility] Start: 05-01-2023 End: 05-01-2023 ambulatory Manisha Marc Other [facility] Other Start: 05-01-2023 Telephone encounter Manisha Rico her [facility] Start: 04-30-2023 End: 04-30-2023 ambulatory Manisha Marc Other [facility] Other Start: 04-30-2023 Encounter for genera l adult medical examination without abnormal findings Manisha Tari [facility] Start: 04-30-2023 Periodic preventive med est patient 18-39 yrs Manisha Tari [facility] Start: 04-29-2023 ([facility]NI) [facility] Initial Provider Nely Cruz [facility] Start: 04-29-2023 End: 04-29-2023 ambulatory Nely Cruz Other [facility] Other Start: 03-25-2023 End: 03-25-2023 ambulatory Celiomary Mullins Other [facility] Other Start: 03-25-2023 Nutrition therapy Celio Harpreet [facility] Start: 03-25-2023 Telephone encounter Celio Mullins [facility] Start: 03-14-2023 End: 03-14-2023 ambulatory Nely Cruz Other [facility] Other Start: 03-14-2023 Telephone encounter Nely Cruz [facility] Start: 02-11-2023 End: 02-11-2023 ambulatory Casandra Hassan Other [facility] Other Start: 02-11-2023 Office outpatient visit 15 minutes Casandra Hassan [facility] Start: 12-31-2022 End: 01-01-[address] TOBIAS OSCAR . Facility:[facility] Start: 11-26-2022 End: 11-27-[address] TOBIAS OSCAR . Facility:[facility] Start: 11-08-2022 End: 11-09-[address] THADDEUS ROD Facility:[facility] Start: 10-28-2022 End: 10-28-[address] TOBIAS OSCAR . Facility:[facility] Start: 07-13-2022 End: 07-13-2022 ambulatory Michelle Ernandez Other [facility] Other Start: 07-13-2022 Office outpatient visit 15 minutes Michelle Oma [facility] Start: 03-07-2022 End: 03-08-[address] THADDEUS ROD Facility:[facility] Start: 01-25-2022 Encounter for genera l adult medical examination without abnormal findings DR THADDEUS ROD [facility] Start: 01-21-2022 End: 01-22-[address] THADDEUS ROD Facility:[facility] Start: 01-21-2022 End: 01-22-2022 Encounter for general adult medical examination without abnormal findings DR THADDEUS ROD Facility:[facility] Start: 07-06-2021 End: 07-06-2021 ambulatory Michelle Oma Other [facility] Other Start: 07-06-2021 Office outpatient visit 15 minutes Michelle Oma [facility] Start: 06-17-2021 Office outpatient visit 15 minutes Michelle Oma [facility] Start: 05-31-2021 Office outpatient visit 25 minutes Michelle Oma [facility] Start: 08-27-2018 End: 08-27-2018 ambulatory BRENT KINNEY Facility:[facility] Procedures Date Procedure Procedure Detail Performing [...] lic 2000 panel - Serum or Plasma [facility] enter Holter monitor study [facility] Immunizations Immunization Date Immunization Notes Care Provider Lillie rogers 03-03-2021 Do not use COVID-19 Pfizer 2 dose Manisha Marc Other [facility] 02-10-2021 Do not use COVID-19 Pfizer 2 dose Manisha Tari Other [facility] 08-03-2018 Toradol per 15 mg Michelle Sofia ond Other [facility] Other Payers Date Payer Category Payer Self-pay [id number] 2022 Self-pay [id number] 2022 Private Health Insurance 1991 Unknown [id number] 2.16.840.1.142409.3.579.2. 732 1991 Unknown [id number] 2.16.840.1.119728.3.579.2. 593 1991 Unknown [id number] 2.16.840.1.408242.3.579.2. 593 1991 Unknown [id number] 2.16.840.1.425428.3.579.2. 593 1991 Unknown [id number] 2.16.840.1.228570.3.579.2. 593 1991 Unknown [id number] 2.16.840.1.041508.3.579.2. 593 1991 Unknown [id number] 2.16.840.1.715206.3.579.2. 593 1991 Unknown [id number] 2.16.840.1.419592.3.579.2. 196 1991 Unknown [id number] 2.16.840.1.957585.3.579.2. 196 1991 Unknown [id number] 2.16.840.1.700736.3.579.2. 196 1991 Unknown [id number] 2.16.840.1.694599.3.579.2. 196 1991 Unknown [id number] 2.16.840.1.456424.3.579.2. 1259 1991 Unknown [id number] 2.16.840.1.472489.3.579.2. 1259 1991 Unknown [id number] 2.16.840.1.687915.3.579.2. 1259 1959 Medicaid [id number] 1959 Unknown [id number] Unknown [place] [id number] Unknown [id number] 2.16.840.1.595285.3.579.2. 531 Unknown [id number] 2.16.840.1.061149.3.579.2. 531 Unknown [id number] 2.16.840.1.318172.3.579.2. 531 Unknown [id number] 2.16.840.1.267247.3.579.2. 531 Unknown [id number] 2.16.840.1.123009.3.579.2. 531 Unknown [id number] 2.16.840.1.865003.3.579.2. 531 Unknown [id number] 2.16.840.1.477114.3.579.2. 531 Social History Date Type Detail Facility Unknown if ever smoked [facility] Other Sex Assigned At Sex Assigned At Bir th [facility] Other Start: 12-07-2021 End: 11-26-2023 Tobacco smoking status MOIS Never smoked tobacco (finding) [facility] Start: 1990 Sex Assigned At Female F [facility] Clinical Notes 05-31-2021 to 08-19-2023 [...] (D) Plate method for meal planning ; [employer] [facility] Other 12-27-2023 Evaluation note* Encounter Date Diagnosis [...] You have been given relevant education handouts. [facility] Other 11-28-2023 Evaluation note* Encounter Date Diagnosis [...] voice recognition software. 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 Jun, Dietary surveillance and counseling (ICD-10 - [...] metformin 1000 mg total daily, managed by FORMING MACHINE OPERATOR Jun, Asthma (ICD-10 - J45.909) Jun, Migraine (ICD-10 - G43.909) Jun, Primary hypertension (ICD-10 - I10) Currently on pharmacotherapy Potential for overtreatment given lightheadedness Jun, Other An additional 9 minutes was spent counseling the patient on behavior modification including proper nutrition and physical activity. [facility] Other 11-20-2023 Evaluation note* Encounter Date Diagnosis [...] until you feel better. You may take [id number] Imodium for diarrhea as needed. Avoid dairy foods as well as greasy fried foods. Follow-up with your physician if no improvement in 2 to 3 days. May return to work on Jun, Diarrhea, unspecified type (ICD-10 - R19.7) Diarrhea: adult home care material was printed [facility] Other 11-12-2023 Evaluation note* Encounter Date Diagnosis [...] to 3-day Jun, Bronchitis (ICD-10 - J40) [facility] Other 10-25-2023 Evaluation note* Encounter Date Diagnosis Assessment Notes Treatment Notes Treatment Clinical Notes May, Degenerative lumbar disc (ICD-10 - M51.36) L4-5 Pt would like a referral to pain management regarding her chronic back pain. Her last x-ray of the lumbar spine was completed 10/2022 at [facility]--reviewed and in scanned documents. Referral placed. May, [...] disorder (ICD-10 - F31.81) Referral placed to [facility] for medication mangement. [facility] Other 09-19-2023 Evaluation note* Encounter Date Diagnosis Assessment Notes Treatment Notes Treatment Clinical Notes Apr, Exposure to head lice (ICD-10 - Z20.7) Discussed with patient exam is without any signs of current lice infection. May return to work tomorrow. Patient completed next treatment yesterday. Patient verbalized understanding. [facility] Other 09-14-2023 Evaluation note* Encounter Date Diagnosis Assessment Notes Treatment Notes Treatment Clinical Notes Apr, Primary hypertension (ICD-10 - I10) [facility] Other 09-13-2023 Evaluation note* Encounter Date Diagnosis [...] (ICD-10 - R73.01) Will obtain records from [facility] for most recent labs. Patient [...] Low back pain, unspecified (ICD-10 - M54.50) [facility] Other 09-12-2023 Evaluation note* Encounter Date Diagnosis [...] 2) Aim for < 45 g carb/meal [facility] Other 08-08-2023 Evaluation note* Encounter Date Diagnosis [...] voice recognition software. 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 Mar, Dietary surveillance and counseling (ICD-10 - [...] as sweet tea, replace ice cream with Micronesian yogurt, use protein shake in the a.m. [...] with the patient, and documenting clinical information. [facility] Other 06-27-2023 Evaluation note* Encounter Date Diagnosis [...] 7 days, sooner if significantly worsening symptoms. [facility] Other 11-26-2022 Evaluation note* Encounter Date Diagnosis [...] 3 days. Off work today and tomorrow [facility] Other 11-19-2021 Evaluation note* Encounter Date Diagnosis [...] Patient care instructions given in writting by [employer] [facility] document. [facility] Other 10-31-2021 Evaluation note* Encounter Date Diagnosis [...] Patient care instructions given in writting by [employer] [facility] document. [facility] Other 10-14-2021 Evaluation note* Encounter Date Diagnosis Assessment Notes Treatment Notes Treatment Clinical Notes May, Dysuria (ICD-10 - R30.0) May, Urinary tract infection, site not specified (ICD-10 - N39.0) May, Hematuria, unspecified (ICD-10 - R31.9) [facility] Other Evaluation noteNo [employer]Nort [employer] Other evaluation noteNo assessment information available [facility] Work Phone: Evaluation note* Diagnosis Onset Date Resolution Status Dietary surveillance and counseling acute Exercise counseling acute Food insecurity acute PCOS (polycystic ovarian syndrome) acute Prediabetes acute Severe obesity (BMI >= 40) a melvin [facility] Work Phone: Evaluation note* Diagnosis Onset Date Resolution Status Dietary surveillance and counseling acute Exercise counseling acute Food insecurity acute PCOS (polycystic ovarian syndrome) acute Prediabetes acute Severe obesity (BMI >= 40) a cute Lightheadedness acute Menorrhagia acute Palpitations acute [facility] Work Phone: evaluation note* Diagnosis Onset Date Resolution Status Dietary surveillance and counseling acute Exercise counseling acute Food insecurity acute PCOS (polycystic ovarian syndrome) acute Prediabetes acute Severe obesity (BMI >= 40) a cute Lightheadedness acute Menorrhagia acute Palpitations acute Dietary surveillance and counseling acute Exercise counseling acute Severe obesity (BMI >= 40) a [facility] Work Phone: evaluation note* Diagnosis Onset Date Resolution Status Lightheadedness acute Menorrhagia acute Palpitations acute Dietary surveillance and counseling acute Exercise counseling acute Severe obesity (BMI >= 40) a [facility] Work Phone: history general Narrative [...] Pneumonia Hospitalization History Hospitalized for blood l [employer] 2010 [facility] Other history general Narrative - Reported* Type [...] History Hospitalized for blood l oss 2010 [facility] Other history general Narrative - Reported* Type [...] History Hospitalized for blood l oss 2010 [facility] Other history general Narrative - Reported* Type [...] History Hospitalized for blood l oss 2010 [facility] Other history general Narrative - Reported* Type [...] History Hospitalized for blood l oss 2010 [facility] Other history general Narrative - Reported* Type [...] History Hospitalized for blood l oss 2010 [facility] Other history general Narrative - Reported* Type [...] History Hospitalized for blood l oss 2010 [facility] Other Reason for referral (narrative)* Reason *FU 06/20 would sherif groves a referral to pscyiatrist -- was recently diagnosed with bipolar and would like medication management. Diagnosis 1 Bipolar 2 disorder ( F31.81) Referral Organization [facility] Legal [employer] sharan Referring Provider First Name Manisha Referring Provider Last Name Rohrbacher Referring Provider Specialty Nurse Pract itioner Referred Organization [facility] Referred Address [address] ,[place], [place],[address] Referred Provider Specialty Psychiatry Referral Priority Routine General Notes Paola Henderson 01:25:30 PM >received today, not sure if [facility] does medication management, waiting for notes to be locked Paola Henderson 06/13/2023 10:34:39 AM >notes locked, referral faxed Clinical Notes p: [phone] f: [id number] [facility] Reason *06/20 would sherif groves a referral to pain management for other options for pain control for back pain Diagnosis 1 Degenerative lumbar disc (M51.36) Referral Organization [facility] [employer] Referring Provider First Name Manisha Referring Provider Last Name Rohrbacher Referring Provider Specialty Nurse Pract itioner [facility]erred [facility] Center Referred Provider Yrn Parsons Referred Address [address], [place],[address] Referred Provider [facility]ty [facility] Referral Priority Routine General Notes Paola Henderson 01:21:23 PM >received today, waiting for notes to be locked Paola Henderson 06/13/2023 10:25:26 AM >notes locked, referral faxed Clinical Notes f: [id number] [employer] Other Summary Purpose Family History No Family [...] and content) DATE CREATED AUTHOR 08/27/2021 [facility] [employer] [facility] DATE CREATED AUTHOR AUTHOR'S ORGANIZ ATION 01/01/2023 [facility] DATE CREATED AUTHOR AUTHOR'S ORGANIZ ATION 01/30/2024 [facility] DATE CREATED AUTHOR AUTHOR'S ORGANIZ ATION 03/18/2024 [facility] DATE CREATED AUTHOR AUTHOR'S ORGANIZ ATION 04/08/2024 [facility] REASON FOR VISIT (unrecogniz ed [...] Member Role Status Dates Manisha Marc APRN TRAILER CHIEF-C Primary Care Provider Active Team Status: Active Member Role Status Dates Manisha Marc APRN TRAILER CHIEF-C Primary Care Provider, Attending Provider Active Team Status: Inactive Member Role Status Dates Manisha Marc APRN TRAILER CHIEF-C Primary Care Provider Active Celio Mullins DO Attending Provider Active Team Status: Inactive Member Role Status Dates Manisha Marc APRN TRAILER CHIEF-C Primary Care Provider Active Clinton Frazier MD Attending Provider Active Team Status: Inactive Member Role Status Dates Manisha Marc APRN TRAILER CHIEF-C Primary Care Provider Active Start: July 032022 End: July 03, 2023 Celio Mullins DO Attending Provider Active St art: July 03, 2023 End: July 03, 2023 Team Status: Active Member Role Status Dates Manisha Marc APRN TRAILER CHIEF-C Primary Care Provider Active Start: July 032022 Edward Gilmore MD Attending Provider Active Start: July 03, 2023 Team Status: Inactive Member Role Status Dates Michelle Ernandez NP-C Attending Provider Active S tart: July 07, 2023 End: July 07, 2023 Team Status: Inactive Member Role Status Dates Celio Mlulins DO Attending Provider Active St art: July 15, 2023 End: July 15, 2023 Team Status: Inactive Member Role Status Dates Manisha Marc APRN TRAILER CHIEF-C Primary Care Provider Active Start: July End: July 19, 2023 Clinton Frazier MD Attending Provider Active Start: July 19, 2023 End: July 19, 2023 Team Status: Inactive Member Role Status Dates Manisha Marc APRN TRAILER CHIEF-C Attending Provider Act rafal Start: August 13, 2023 End: August 13, 2023 Team Status: Inactive Member Role Status Dates Nely Cage [facility] Attending Provider Active Start: August 19, 2023 End: August 19, 2023 Team Status: Active Member Role Status Dates Manisha Marc APRN TRAILER CHIEF-C Primary Care Provider, Attending Provider Active Start: August 19, 2023 Team Status: Inactive Member Role Status Dates Manisha Marc APRN TRAILER CHIEF-C Attending Provider Act rafal Start: September 03, 2023 End: September 03, 2023 Team Status: Inactive Member Role Status Dates Manisha Marc APRN TRAILER CHIEF-C Primary Care Provider Active Start: October 012023 End: October 01, 2023 Celio Mullins DO Attending Provider Active St art: October 01, 2023 End: October 01, 2023 Team Status: Active Member Role Status Dates Manisha Marc APRN TRAILER CHIEF-C Primary Care Provider Active Start: August 142022 Edward Gilmore MD Attending Provider Active Start: August 14, 2023 Team Status: Active Member Role Status Dates Manisha Marc APRN TRAILER CHIEF-C Primary Care Provider, Attending Provider Active Start: October 06, 2023 Team Status: Inactive Member Role Status Dates Manisha Marc APRN TRAILER CHIEF-C Primary Care Provider Active Start: October 082023 End: October 08, 2023 Akil Cox DO Attending Provider Active Start: October 08, 2023 End: October 08, 2023 Team Status: Active Member Role Status Dates Manisha Marc APRN TRAILER CHIEF-C Primary Care Provider, Attending Provider Active Start: October 30, 2023 Team Status: Inactive Member Role Status Dates Manisha Marc APRN TRAILER CHIEF-C Primary Care Provider, Attending Provider Active Start: November 03, 2023 End: November 03, 2023 Team Status: Active Member Role Status Dates Manisha Marc APRN TRAILER CHIEF-C Primary Care Provider Active Start: August Edward Gilmore MD Attending Provider Active Start: September 10, 2023 Team Status: Inactive Member Role Status Dates Manisha Marc APRN TRAILER CHIEF-C Primary Care Provider Active Start: November 26, 2023 End: November 26, 2023 Celio Mullins DO Attending Provider Active St art: November 26, 2023 End: November 26, 2023 Team Status: Active Member Role Status Dates Manisha Marc APRN TRAILER CHIEF-C Primary Care Provider Active Start: January 01, [...] BE BASED ON THE PRIMARY CLINICAL RECORDS. [employer] provides no warranty or guarantee of the accuracy or completeness of information in this document.
[2024-04-14] MEDS: CLINDAMYCIN HCL 150 MG CAPSULE 600 MG PO (21:28)
== END 2024-04-14 21:40 | disposition home or self-care (01) ==
PROVIDERS: Emergency Provider Internal Medicine; PCP Nurse Practitioner Family
DX: T42.6X1A Poisoning by other antiepileptic and sedative-hypnotic drugs, accidental (unintentional), initial encounter (principal); K04.7 Periapical abscess without sinus
CPT/HCPCS: 93005; 99283

== ENCOUNTER 2024-04-21 10:27 | Outpatient (OUT) | payer OTHER, SELFPAY ==
--- NOTE | 2024-04-21 10:41 | PM.CN ---
Consult Note: HPI Data of Consult Patient: known to practice within the last 3 years Requesting Physician: Vera Blanco NP Primary Care Provider: CHRIS LOPEZ Consult Narrative Reason for consult: f/u Narrative: Ashly Mehta a pleasant 32 year old female presents for evaluation and management of low back pain. Patient has noticed this low back pain since a fall at work in 2018 where she injured her ankle and had to wear a boot, noticed the pain started after she stopped wearing the boot. Today rating pain 5/10 in low back, is intermittent. Pain increased with pushing, pulling, standing, walking, activity, decreased with sleep sitting and lying down. No numbness tingling or weakness. Aleve PRN without relief, PT last over a year ago. Has tried chiropractor care without success. Currently on cymbalta 120mg qd, gabapentin 300mg BID, tylenol 1500mg BID-TID PRN. Failed to benefit from celebrex 100mg BID noticed increased GERD, no notable benefit from PRN flexeril. Patient reporting no improvement from bilateral L4/5 L5/S1 facet RFA. significant relief from bilateral GTB injections. Patient reporting new onset numbness tingling in BLE at times, reports a fall on 02/19/24 as her right leg went numb and gave out. cc:: CC: Vera Blanco NP Review of Systems ROS Status of ROS 10 or more systems reviewed and unremarkable except as noted in history and below Musculoskeletal Reports: back pain, extremity pain and muscle weakness PFSH PFSH Medical History Herpes genitalia ?A60.00 - Herpesviral infection of urogenital system, unspecified (ICD-10) Back pain ?M54.9 - Dorsalgia, unspecified (ICD-10) Arthritis ?M19.90 - Unspecified osteoarthritis, unspecified site (ICD-10) Anemia ?D64.9 - Anemia, unspecified (ICD-10) Depression ?F32.A - Depression, unspecified (ICD-10) Anxiety ?F41.9 - Anxiety disorder, unspecified (ICD-10) COVID-19 ?U07.1 - COVID-19 (ICD-10) Asthma ?J45.909 - Unspecified asthma, uncomplicated (ICD-10) Seizures ?R56.9 - Unspecified convulsions (ICD-10) GERD (gastroesophageal reflux disease) ?K21.9 - Gastro-esophageal reflux disease without esophagitis (ICD-10) Sleep apnea ?G47.30 - Sleep apnea, unspecified (ICD-10) Palpitations ?R00.2 - Palpitations (ICD-10) Prediabetes ?R73.03 - Prediabetes (ICD-10) Hypertension ?I10 - Essential (primary) hypertension (ICD-10) PCOS (polycystic ovarian syndrome) ?E28.2 - Polycystic ovarian syndrome (ICD-10) Abnormal uterine bleeding (AUB) ?N93.9 - Abnormal uterine and vaginal bleeding, unspecified (ICD-10) Menorrhagia ?N92.0 - Excessive and frequent menstruation with regular cycle (ICD-10) Surgical History History of laparoscopy ?Z98.890 - Other specified postprocedural states (ICD-10) History of colposcopy ?Z98.890 - Other specified postprocedural states (ICD-10) History of wisdom tooth extraction ?K08.409 - Partial loss of teeth, unspecified cause, unspecified class (ICD-10) History of cholecystectomy ?Z90.49 - Acquired absence of other specified parts of digestive tract (ICD-10) Family History Other Family history of heart disease Family history of stroke Social History Within the past year, how often did you have a drink containing alcohol: monthly or less Smoking status: Never smoker 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 Highest level of school completed/degree received: Associate degree: occupational, technical, vocational program Meds Home Medications and Allergies Home Medications ?Medication ?Instructions ?Recorded ?Confirmed ?Type albuterol sulfate 90 mcg/actuation 2 inh inhalation Q6H PRN shortness 01/17/23 04/14/24 History aerosol inhaler (ProAir HFA) of breath or wheezing gabapentin 300 mg capsule 300 mg PO Q12H PRN pain 01/17/23 04/14/24 History metformin 500 mg tablet 500 mg PO BID 01/17/23 10/30/23 History valacyclovir 1 gram tablet 1,000 mg PO BID 06/25/23 04/14/24 History coenzyme Q10 100 mg capsule (Co 200 mg PO DAILY 10/30/23 10/30/23 History Q-10) inositol 500 mg tablet 500 mg PO DAILY 10/30/23 10/30/23 History lamotrigine 25 mg tablet (Lamictal) 25 mg PO Q12H 10/30/23 04/14/24 History celecoxib 100 mg capsule (Celebrex) 100 mg PO BID 01/07/24 04/14/24 History cyclobenzaprine 10 mg tablet 10 mg PO TID 01/07/24 04/14/24 History duloxetine 60 mg capsule,delayed mg PO 04/14/24 History release lisinopril 10 mg tablet mg 04/14/24 History metformin 500 mg tablet,extended mg PO 04/14/24 History release 24 hr Allergies Allergy/AdvReac Type Severity Reaction Status Date / Time amoxicillin Allergy Rash Verified 04/14/24 20:34 cefaclor Allergy Rash Verified 04/14/24 20:34 erythromycin base Allergy Hives Verified 04/14/24 20:34 Exam Constitutional Documenting provider has reviewed patient's vital signs: yes Common normals: no apparent distress, oriented x3, healthy appearing, alert and well nourished General appearance: cooperative Nutritional appearance: obese HENMT Common normals: normocephalic, hearing grossly normal bilaterally and moist oral mucous membranes Head and scalp: normocephalic Eye Common normals: PERRL Pupil: PERRL Neck & C-Spine Common normals: full ROM General: normal visual inspection Chest Common normals: inspection of chest normal Respiratory Common normals: normal respiratory effort, no retractions and no use of accessory muscles Back & Pelvis Lumbar spine/lower back: ROM limited, pain with ROM and straight leg raise positive left Sacroiliac joints: SI joint(s) abnormal (bilateral marissa, thigh thrust) Other: pain throughout upper lumbar spine, positive facet loading no pain to bilateral L4-S1 facets altered sensation to bilateral L4/5/S1 pattern strength 5/5 in BLE Extremity Common normals: normal to inspection and full ROM Other: tenderness over bilateral GTB Neuro Common normals: oriented x3, CN's II-XII intact bilaterally, moves all extremities, no focal motor deficits, no sensory deficits noted, deep tendon reflexes 2+ bilaterally and gait normal Sensorium/orientation: alert Motor exam: strength 5/5 throughout and no movement abnormalities noted Psych Common normals: mental status grossly normal, thought process normal, cooperative, affect normal, speech normal and activity/motor behavior normal Speech: normal speech Thought process: normal thought process Results Additional Findings Additional findings: If on a controlled substance or opioids, I have checked an [place] report on this patient and there are no aberrancies noted in the prescribing history.??If on a controlled substance or opioid a drug screen was completed and reviewed within the last year, and if there has not been a drug screen completed we ordered one today to monitor higher risk, state monitored pain medication use. As part of providing excellent, safe, comprehensive care, the following was completed at our patient's visit: 1. A medication reconciliation and review to ensure accurate knowledge of current/active medications, including asking our patients to inform us about any [id number] medications or herbal remedies/nutritional supplements/alternative remedies. 2. A review to specifically ensure our patients have had annual screening for screening for depression, screening for tobacco use, and screening for unhealthy alcohol use. For concerning screenings had a discussion with the patient, provided patient education, and recommended follow-up with primary care provider when appropriate. If patient noted with a risk of falling, they received education on strength, gait, and balance training to prevent future risk of falling. Assessment and Plan Assessment and Plan (1) Lumbar degenerative disc disease: (2) Greater trochanteric bursitis: Qualifiers: Laterality: unspecified laterality Qualified Code(s): M70.60 - Trochanteric bursitis, unspecified hip (3) Myofascial pain syndrome: (4) Lumbar spondylosis: (5) Lumbar radiculopathy: Plan update lumbar MRI without contrast to evaluate chronic low back pain, lumbar radiculopathy, and lumbar DDD unresponsive to greater than 6 weeks of provider guided HEP, hearing healthcare practitioner, NSAIDs, tylenol, gabapentin. stop flexeril start baclofen 10mg TID PRN stop celebrex start meloxicam 15mg daily, advised to stop other NSAIDs continue gabapentin 300mg BID continue Cymbalta 120mg daily through PCP f/u to review lumbar MRI
--- OUTSIDE RECORDS SUMMARY | 2024-04-21 10:49 | XMS_ITS | CCD ---
Author Organization [facility] Care Team Providers Care Manuscript Editor Name Role Phone BRENT KINNEY Referring Unavailable BRENT KINNEY Attending Unavailable BRENT KINNEY Admitting Unavailable Michelle Ernandez Unavailable VIOLA, DR NUR Consulting Unavailable PRATTVILLE, DR NUR Admitting Unavailable HOUSE, DR NUR Primary Care Unavailable HOUSE, DR NUR Attending Unavailable ZIEBER, DR SUGEY Ibrahim Consulting Unavailable FREDA ., DR COLLADO Admitting Unavailable HOUSE, DR NUR Primary Care Unavailable FREDA ., DR COLLADO Attending Unavailable FREDA ., DR COLLADO Consulting Unavailable HOUSE, DR NUR Consulting Unavailable PRATTVILLE, DR NUR Primary Care Unavailable HOUSE, DR [...] DR COLLADO Admitting Unavailable Casandra Hassan Unavailable Neyl Cruz Unavailable Celio Mullins Unavailable Manisha Marc Unavailable ROSITA Marc Primary Care Provider ROSITA Marc Attending Provider [phone] DO Celio Mullins Attending Provider ROSITA Marc Primary Care Provider MD Clinton Frazier Attending Provider ROISTA Marc Attending Provider ROSITA Marc Primary Care Provider DO Celio Mullins Attending Provider MD Edward Gilmore Attending Provider MD Clinton Frazier Attending Provider [phone] ROSITA Marc Primary Care Provider MD Edward [...] Unavailab Edward Lance Attending Unavailab zach Marc [facility] Unavailable Ivon Mullinsten M Admitting Unavailable MullinsIvonCelio M Attending Unavailable Tari [facility] Unavailable Clinton Frazier L Admitting Unavailable Clinton Frazier L Attending Unavailable [facility] Unavailable [facility], [facility] Unavailable Mullins, Celio M Admitting Unavailable Mullins, Celio M Attending Unavailable Mullins, Celio M Admitting Unavailable Mullins, Celio M Attending Unavailable [facility] Unavailable Akil Cox Attending Unavailab Akil Avila Admitting Unavailab zach Marc [facility] Unavailable Allergies Allergy Classification Reported Allergen(s) Allergy Type Date of Onset Reaction(s) Facility (20 sources) Amoxicillin; Translations: [AMOXICILLIN] Drug Allergy 07-08-20 16 [facility] Repository (9 sources) Cefaclor; Translations: [CEFACLOR] Drug Allergy 04-14-20 15 Unknown Reaction, [facility] Repository (19 sources) Erythromycin; Translations: [ERYTHROMYCIN] Drug Allergy 04-14-20 15 [facility] Repository (19 sources) Cefaclor; Translations: [Ceclor] Drug Allergy 04-17-20 15 [facility] Repository (8 sources) Erythromycin Drug Allergy 04-17-20 15 Unknown Reaction, [facility] Repository (8 sources) Cephalosporins (Antibiotic); Translations: [Cephalosporins] Allergy to substance 12-10-19 22 Unknown Reaction, Rash [facility] (3 sources) Lactulose; Translations: [lactulose] Drug Allergy 02-12-20 20 Unknown Reaction [facility] (1 source) Erythromycin Drug Allergy 11-26-19 24 [facility] Repository Medications Current Medications Medication Drug Class(es) Dates Sig (Normalized) Sig (Original) [id number] 200 actuat albuterol 0.09 mg/actuat metered dose [...] Tari Garnett take 1 capsule by mo [facility] once daily as needed Gabapentin 300 [...] extended release oral tablet (7 sources) beta-Adrenergic Nan Start: 02-12-2020 End: 12-07-2021 take 50 mg [...] [#/Vol] 0.0 10 3/uL 0.0-0.1 [facility] Basophils/100 WBC Auto (Bld) on 11-03-2023 Basophils/100 WBC (Bld) 0.5 % 0.2-2.0 F [facility] Eosinophils/100 WBC Auto (Bl d)on 11-03-2023 Eosinophils/100 WBC (Bld) 1.4 % 0.9-7.0 [facility] Erythrocyte distribution wid th Auto (RBC) [Ratio]on 11-03-2023 Erythrocyte distribution width (RBC) [Ratio] 16.3 % 11.0-15.0 [facility] Estimated glomerular filtrat ion rate (GFR) non- Americanon 11-03-2023 GFR/1.73 sq M.predicted among non-blacks MDRD (S/P/Bld) [Vol rate/Area] mL/min/{1.73_m2} >=60 [facility] Globulin Calc (S) [Mass/Vol] on 11-03-2023 Globulin (S) [Mass/Vol] 4.0 g/dL F [facility] Hematocrit Auto (Bld) [Volum e fraction]on 11-03-2023 Hematocrit (Bld) [Volume fraction] 26.1 % 36.0-48.0 [facility] Hemoglobin [Mass/volume] in Bloodon 11-03-2023 Hemoglobin (Bld) [Mass/Vol] 7.8 g/dL 12.0-16.0 [facility] Human papilloma virus 16+18+ 31+33+35+39+45+51+52+56+58+59+66+68 DNA [Presence] in [place] 11-03-2023 HPV 16+18+31+33+35+39+45+51 +52+56+58+59+66+68 DNA Probe+sig amp Ql (Cvx) Negative Negative [facility] Comment on above: This nucleic acid am plification test detects fourteen high-risk HPV types (16,18,31,33,35,39,45,51,52,56,58,59,66,68)without differentiation.Performed at: =G - [facility] [id number] [facility], [place], Operated [facility] [place], [place] [id number] Director: Monse Cardona MD, Phone: [phone] at: WB - [facility] [id number] [place], [place] [id number] Director: Monse Cardona MD, Phone: [phone] Iron binding capacity [Mass/ volume] in Serum or Plasmaon 11-03-2023 Iron binding capacity [Mass/Vol] 512.0 ug/dL 250.0-450.0 [facility] Iron saturation [Mass Fracti on] in Serum or Plasmaon 11-03-2023 Iron saturation [Mass fraction] 2.7 % [facility] Laboratory - Chemistry and C hemistry - challengeon 11-03-2023 Albumin [Mass/Vol] 3.1 g/dL 3.4-5.0 [facility] ALP [Catalytic activity/Vol] 63 U/L 46-116 [facility] ALT [Catalytic activity/Vol] 29 U/L 14-59 [facility] AST [Catalytic activity/Vol] 18 U/L 15-37 [facility] Bilirubin [Mass/Vol] 0.2 mg/dL 0.2-1.0 [facility] Calcium [Mass/Vol] 8.7 mg/dL 8.5-10.1 [facility] Chloride [Moles/Vol] 102 mmol/L 98-107 [facility] CO2 [Moles/Vol] 27.6 mmol/L 21.0-32.0 [facility] Creatinine [Mass/Vol] 0.70 mg/dL 0.55-1.02 [facility] Ferritin [Mass/Vol] 6.0 ng/mL 8.0-252.0 [facility] GFR/1.73 sq M.predicted MDRD (S/P/Bld) [Vol rate/Area] mL/min/{1.73_m2} >=60 [facility] Glucose [Mass/Vol] 103 mg/dL 74-106 [facility] Iron [Mass/Vol] 14.0 ug/dL 50.0-170.0 [facility] Potassium [Moles/Vol] 3.8 mmol/L 3.5-5.1 [facility] Protein [Mass/Vol] 7.1 g/dL 6.4-8.2 [facility] Sodium [Moles/Vol] 139 mmol/L 136-145 [facility] Urea nitrogen [Mass/Vol] 11.0 mg/dL 7.0-18.0 [facility] Urea nitrogen/Creatinine [Mass ratio] 15.7 mg/mg [facility] Laboratory - Hematology and Cell countson 11-03-2023 Immature granulocytes/100 WBC (Bld) 0.4 % 0.0-0.5 [facility] Leukocytes [#/volume] correc carmelita for nucleated erythrocytes in Blood by Automated counon 11-03-2023 WBC corrected for nucl RBC Auto (Bld) [#/Vol] 7.4 10 3/uL 4.0-11.0 [facility] Lymphocytes Auto (Bld) [#/Vo l]on 11-03-2023 Lymphocytes (Bld) [#/Vol] 2.5 10 3/uL 1.2-3.8 [facility] Lymphocytes/100 WBC Auto (Bl d)on 11-03-2023 Lymphocytes/100 WBC (Bld) 33.6 % 20.5-60.0 [facility] MCH Auto (RBC) [Entitic mass ]on 11-03-2023 MCH (RBC) [Entitic mass] 24.8 pg 26.7-34.0 [facility] MCHC Auto (RBC) [Mass/Vol]on 11-03-2023 MCHC (RBC) [Mass/Vol] 29.9 g/dL 29.9-35.2 [facility] MCV Auto (RBC) [Entitic vol] on 11-03-2023 MCV (RBC) [Entitic vol] 82.9 fL 81.0-99.0 F [facility] Monocytes Auto (Bld) [#/Vol] on 11-03-2023 Monocytes (Bld) [#/Vol] 0.4 10 3/uL 0.3-0.8 [facility] Monocytes/100 WBC Auto (Bld) on 11-03-2023 Monocytes/100 WBC (Bld) 5.6 % 1.7-12.0 F [facility] Neutrophils Auto (Bld) [#/Vo l]on 11-03-2023 Neutrophils (Bld) [#/Vol] 4.3 10 3/uL 1.4-6.5 [facility] Neutrophils/100 WBC Auto (Bl d)on 11-03-2023 Neutrophils/100 WBC (Bld) 58.5 % 43.0-75.0 [facility] No Panel Informationon 11-02 Eosinophils # (Auto) 0.1 10 3/uL 0.0-0.7 [facility] Immature Granulocyte # (Auto) 0.03 10 3/uL 0.00-0.03 [facility] HPV High Risk Other Comment Note . [facility] Comment on above: TESTS RESULT FLAG UN ITS REF RANGE LAB -DIAGNOSIS: 02 NEGATIVE FOR INTRAEPITHELIAL LESION OR MALIGNANCY.Specimen adequacy: 02 Satisfactory for evaluation. Endocervical and/or squamous metaplastic cells (endocervical component) are present.Performed by: Mikhail Escalante, Family And Consumer Science Professor (ASCP). 02Note: Note 02 The Pap smear [...] Low,>-Panic High,A-Abnormal,AA-Critical Abnormal ------Performed at:02 WB [facility] [address] [place] [address] Monse Cardona MD, Reference Lab Test Patient Age Note . [facility] Comment on above: TESTS RESULT FLAG UN ITS REF RANGE LAB - Clinician Provided Cytology Information Source.............Cervix;Endocervix No. of containers..01 ThinPrep VialAge Algo ACOG Elise... 01 FLAG LEGEND: L-Low Normal,H-High Normal,LL-Alert Low,HH-Alert High <-Panic Low,>-Panic High,A-Abnormal,AA-Critical Abnormal ------Performed at:01 =G [facility] [address] [facility] [place] [address] Monse Cardona MD, Platelet mean volume Auto (B ld) [Entitic vol]on 11-03-2023 Platelet mean volume (Bld) [Entitic vol] 9.6 fL 9.5-13.5 [facility] Platelets Auto (Bld) [#/Vol] on 11-03-2023 Platelets (Bld) [#/Vol] 323 10 3/uL 150-450 [facility] RBC Auto (Bld) [#/Vol]on RBC (Bld) [#/Vol] 3.15 10 6/uL 4.20-5.40 [facility] Serum or plasma albumin/glob ulin mass ratioon 11-03-2023 Albumin/Globulin [Mass ratio] 0.8 {ratio} [facility] Serum or plasma anion gap de terminationon 11-03-2023 Anion gap [Moles/Vol] 13.2 mmol/L [facility] Basophils Auto (Bld) [#/Vol] on 10-30-2023 Basophils (Bld) [#/Vol] 0.0 10 3/uL 0.0-0.1 [facility] Basophils/100 WBC Auto (Bld) on 10-30-2023 Basophils/100 WBC (Bld) 0.6 % 0.2-2.0 F [facility] Eosinophils/100 WBC Auto (Bl d)on 10-30-2023 Eosinophils/100 WBC (Bld) 1.2 % 0.9-7.0 [facility] Erythrocyte distribution wid th Auto (RBC) [Ratio]on 10-30-2023 Erythrocyte distribution width (RBC) [Ratio] 16.6 % 11.0-15.0 [facility] Estimated glomerular filtrat ion rate (GFR) non- Americanon 10-30-2023 GFR/1.73 sq M.predicted among non-blacks MDRD (S/P/Bld) [Vol rate/Area] mL/min/{1.73_m2} >=60 [facility] HCG ( test) IA.rapi d Ql (U)on 10-30-2023 HCG ( test) Ql (U) Negative NEGATIVE [facility] Hematocrit Auto (Bld) [Volum e fraction]on 10-30-2023 Hematocrit (Bld) [Volume fraction] 26.6 % 36.0-48.0 [facility] Hemoglobin [Mass/volume] in Bloodon 10-30-2023 Hemoglobin (Bld) [Mass/Vol] 7.9 g/dL 12.0-16.0 [facility] Laboratory - Chemistry and C hemistry - challengeon 10-30-2023 Calcium [Mass/Vol] 8.5 mg/dL 8.5-10.1 [facility] Chloride [Moles/Vol] 101 mmol/L 98-107 [facility] CO2 [Moles/Vol] 28.8 mmol/L 21.0-32.0 [facility] Creatinine [Mass/Vol] 0.62 mg/dL 0.55-1.02 [facility] GFR/1.73 sq M.predicted MDRD (S/P/Bld) [Vol rate/Area] mL/min/{1.73_m2} >=60 [facility] Glucose [Mass/Vol] 104 mg/dL 74-106 [facility] Potassium [Moles/Vol] 4.0 mmol/L 3.5-5.1 [facility] Sodium [Moles/Vol] 137 mmol/L 136-145 [facility] Urea nitrogen [Mass/Vol] 8.0 mg/dL 7.0-18.0 [facility] Urea nitrogen/Creatinine [Mass ratio] 12.9 mg/mg [facility] Laboratory - Hematology and Cell countson 10-30-2023 Immature granulocytes/100 WBC (Bld) 0.4 % 0.0-0.5 [facility] Leukocytes [#/volume] correc carmelita for nucleated erythrocytes in Blood by Automated counon 10-30-2023 WBC corrected for nucl RBC Auto (Bld) [#/Vol] 7.3 10 3/uL 4.0-11.0 [facility] Lymphocytes Auto (Bld) [#/Vo l]on 10-30-2023 Lymphocytes (Bld) [#/Vol] 2.2 10 3/uL 1.2-3.8 [facility] Lymphocytes/100 WBC Auto (Bl d)on 10-30-2023 Lymphocytes/100 WBC (Bld) 30.2 % 20.5-60.0 [facility] MCH Auto (RBC) [Entitic mass ]on 10-30-2023 MCH (RBC) [Entitic mass] 25.0 pg 26.7-34.0 [facility] MCHC Auto (RBC) [Mass/Vol]on 10-30-2023 MCHC (RBC) [Mass/Vol] 29.7 g/dL 29.9-35.2 [facility] MCV Auto (RBC) [Entitic vol] on 10-30-2023 MCV (RBC) [Entitic vol] 84.2 fL 81.0-99.0 F [facility] Monocytes Auto (Bld) [#/Vol] on 10-30-2023 Monocytes (Bld) [#/Vol] 0.3 10 3/uL 0.3-0.8 [facility] Monocytes/100 WBC Auto (Bld) on 10-30-2023 Monocytes/100 WBC (Bld) 3.7 % 1.7-12.0 [facility] Neutrophils Auto (Bld) [#/Vo l]on 10-30-2023 Neutrophils (Bld) [#/Vol] 4.6 10 3/uL 1.4-6.5 [facility] Neutrophils/100 WBC Auto (Bl d)on 10-30-2023 Neutrophils/100 WBC (Bld) 63.9 % 43.0-75.0 [facility] No Panel Informationon 10-29 Eosinophils # (Auto) 0.1 10 3/uL 0.0-0.7 [facility] Immature Granulocyte # (Auto) 0.03 10 3/uL 0.00-0.03 [facility] Platelet mean volume Auto (B ld) [Entitic vol]on 10-30-2023 Platelet mean volume (Bld) [Entitic vol] 9.4 fL 9.5-13.5 [facility] Platelets Auto (Bld) [#/Vol] on 10-30-2023 Platelets (Bld) [#/Vol] 264 10 3/uL 150-450 [facility] RBC Auto (Bld) [#/Vol]on RBC (Bld) [#/Vol] 3.16 10 6/uL 4.20-5.40 [facility] Serum or plasma anion gap de terminationon 10-30-2023 Anion gap [Moles/Vol] 11.2 mmol/L [facility] head/brain wo/w conon MR head/brain wo/w con [facility] Main [place] [address] [place] [address] MRI Report Signed Patient: Ashly Mehta MR#: [id number] 8 : 1990 Acct:[id number] Age/Sex: 33 / F ADM Date: 10/08/23 Loc: MR Room: Type: [facility] CLI Attending Dr: Akil Cox DO [...] Ivan Holliday M.D.10/08/2023 4:38 PM Dictation Location: [place] [address] Transcribed By: LAMINE 10/08/23 1638 Dictated By: Ivan Holliday II, MD 10/08/23 1630 Signed By: 10/08/23 1638 Normal [facility] HCG ( test) IAsurjitlive d Ql (U)on 10-06-2023 HCG ( test) Ql (U) Negative NEGATIVE [facility] COVID + FLU Quick Testingon 07-07-2023 SARS-CoV-2 (COVID-19) RNA SURI+probe Ql (Unsp spec) Negative [facility] Other COVID + FLU Quick Testing Negative [facility] Other Alanine aminotransferase [En zymatic activity/volume] in Serum or PlasmaOrdered By: Celio Mullins on 07-03-2023 ALT [Catalytic activity/Vol] 22 U/L Normal 7-52 [facility] Comment on above: Performed By: #### L IPID, CMP #### [facility] [address] [place] [address] [place] Albumin [Mass/volume] in Ser um or Plasma by Bromocresol green (BCG) dye binding methoOrdered By: Celio Mullins on 07-03-2023 Albumin BCG dye [Mass/Vol] 4.4 g/dL 3.5-5.7 [facility] Alkaline phosphatase [Enzyma tic activity/volume] in Serum or PlasmaOrdered By: Celio Mullins on 07-03-2023 ALP [Catalytic activity/Vol] 68 U/L Normal 34-104 [facility] Comment on above: Performed By: #### L IPID, CMP #### [facility] [address] [place] [address] [place] Aspartate aminotransferase [ Enzymatic activity/volume] in Serum or PlasmaOrdered By: Celio Mullins on 07-03-2023 AST [Catalytic activity/Vol] 18 U/L Normal 13-39 [facility] Comment on above: Performed By: #### L IPID, CMP #### [facility] [address] [place], [place] [id number] [place] Bilirubin.total [Mass/volume ] in Serum or PlasmaOrdered By: Celio Mullins on 07-03-2023 Bilirubin [Mass/Vol] 0.4 mg/dL Normal 0.3-1.0 [facility] Comment on above: Performed By: #### L IPID, CMP #### [facility] [address] [place] [address] [place] Calcium [Mass/volume] in Ser um or PlasmaOrdered By: Celio Mullins on 07-03-2023 Calcium [Mass/Vol] 9.4 mg/dL Normal 8.6-10.3 [facility] Comment on above: Performed By: #### L IPID, CMP #### [facility] [address] Carbon dioxide, total [Moles /volume] in Serum or PlasmaOrdered By: Celio Mullins on 07-03-2023 CO2 [Moles/Vol] 30.1 mmol/L Normal 21.0-31.0 [facility] Comment on above: Performed By: #### L IPID, CMP #### [facility] [address] [place] [address] [place] Chloride [Moles/volume] in S marta or PlasmaOrdered By: Celio Mullins on 07-03-2023 Chloride [Moles/Vol] 105 mmol/L Normal 98-107 [facility] Comment on above: Performed By: #### L IPID, CMP #### [facility] [address] [place] [address] [place] Cholesterol [Mass/volume] in Serum or PlasmaOrdered By: Celio Mullins on 07-03-2023 Cholesterol [Mass/Vol] 126 mg/dL Low 140-200 [facility] Comment on above: Chol less than 200 m g/dl low riskChol 201-239 mg/dl borderline riskChol 240 mg/dl and greater high risk Result Comment: Chol less than 200 mg/dl low risk Chol 201-239 mg/dl borderline risk Chol 240 mg/dl and greater high risk Performed By: #### L IPID, CMP #### [facility] [address] [place] [address] [place] Cholesterol in LDL Calc [Mas s/Vol]Ordered By: Celio Mullins on 07-03-2023 Cholesterol in LDL [Mass/Vol] 69 mg/dL 0-100 [facility] Comment on above: LDL ATP III CLASSIFI CATIONLDL less than 100 mg/dL OptimalLDL 100-129 mg/dL Near or above optimalLDL 130-159 mg/dL Borderline highLDL 160-189 mg/dL HighLDL greater than 189 mg/dL Very high Cholesterol in VLDL Calc [Ma ss/Vol]Ordered By: Celio Mullins on 07-03-2023 Cholesterol in VLDL [Mass/Vol] 18 mg/dL [facility] Comprehensive Metabolic Pane landon 07-03-2023 Albumin [Mass/Vol] 4.4 g/dL Normal 3.5-5.7 [facility] Comment on above: Performed By: #### L IPID, CMP #### [facility] [address] [place] [address] [place] GFR/1.73 sq M.predicted MDRD (S/P/Bld) [Vol rate/Area] mL/min/{1.73_m2} Normal [facility] Comment on above: Performed By: #### L IPID, CMP #### [facility] [address] [place] [address] [place] Creatinine [Mass/volume] in Serum or PlasmaOrdered By: Celio Mullins on 07-03-2023 Creatinine [Mass/Vol] 0.63 mg/dL Normal 0.60-1.20 [facility] Comment on above: Performed By: #### L IPID, CMP #### [facility] [address] [place] [id number] [place] Glucose [Mass/volume] in Ser um or PlasmaOrdered By: Celio Mullins on 07-03-2023 Glucose [Mass/Vol] 97 mg/dL Normal 70-100 [facility] Comment on above: ADA recommended refe rence rangeRandom Glucose Reference Range is dependent on time and content of last meal. Glucose of more than 200 mg/dL in a nonstressed, ambulatory subject supports the diagnosis of Diabetes Mellitus. Result Comment: [place] om Glucose Reference Range is dependent on time and content of last meal. Glucose of more than 200 mg/dL in a nonstressed, ambulatory subject supports the diagnosis of Diabetes Mellitus. ADA recommended reference range Performed By: #### L IPID, CMP #### [facility] [address] Lipid Panelon 07-03-2023 LDL Cholesterol,Calculated 69 mg/dL Normal 0-100 [facility] Comment on above: Result Comment: LDL ATP III CLASSIFICATION LDL less than 100 mg/dL Optimal LDL 100-129 mg/dL Near or above optimal LDL 130-159 mg/dL Borderline high LDL 160-189 mg/dL High LDL greater than 189 mg/dL Very high Performed By: #### L IPID, CMP #### [facility] [address] Triglyceride w/Reflex 92 mg/dL Normal 0-149 [facility] Comment on above: Result Comment: TRIG ATP III CLASSIFICATION TRIG less than 150 mg/dL Normal TRIG 150-199 mg/dL Borderline high TRIG 200-500 mg/dL High TRIG greater than 500 mg/dL Very high Standard traceable to the Center for Disease Conrtrol and Prevention (CDC) test method. Performed By: #### L IPID, CMP #### [facility] [address] VLDL CHOLESTEROL 18 mg/dL Normal [facility] Comment on above: Performed By: #### L IPID, CMP #### [address] No Panel InformationOrdered By: Celio Mullins on 07-03-2023 Estimated GFR (CKD-EPI) > 60.0 mL/Min [facility] Creatinine Clearance (Chem N/A [facility] Potassium [Moles/volume] in Serum or PlasmaOrdered By: Celio Mullins on 07-03-2023 Potassium [Moles/Vol] 4.3 mmol/L Normal 3.5-5.1 [facility] Comment on above: Performed By: #### L IPID, CMP #### [address] Protein [Mass/volume] in Ser um or PlasmaOrdered By: Celio Mullins on 07-03-2023 Protein [Mass/Vol] 7.5 g/dL Normal 6.4-8.9 [facility] Comment on above: Performed By: #### L IPID, CMP #### [facility] [address] Serum globulin measurement b y calculation (mass/volume)Ordered By: Celio Mullins on 07-03-2023 Globulin (S) [Mass/Vol] 3.1 g/dL Normal [facility] Comment on above: Performed By: #### L IPID, CMP #### [facility] [address] [place] [address] Serum or plasma albumin/glob ulin mass ratioOrdered By: Celio Mullins on 07-03-2023 Albumin/Globulin [Mass ratio] 1.4 {ratio} Normal [facility] Comment on above: Performed By: #### L IPID, CMP #### [address] Serum or plasma anion gap de terminationOrdered By: Celio Mullins on 07-03-2023 Anion gap [Moles/Vol] 10.2 mmol/L Normal 6.0-15.0 [facility] Comment on above: Performed By: #### L IPID, CMP #### [facility] [address] [place] [address] Serum or plasma high density lipoprotein (HDL) cholesterol measurementOrdered By: Celio Mullins on 07-03-2023 Cholesterol in HDL [Mass/Vol] 39 mg/dL Normal 23-92 [facility] Comment on above: HDL CHOL ATP-III CLA SSIFICATION Cardiovascular RiskHDL > or equal to 60 mg/dL LOWHDL < 40 mg/dL HIGH Result Comment: HDL CHOL ATP-III CLASSIFICATION Cardiovascular Risk HDL > or equal to 60 mg/dL LOW HDL < 40 mg/dL HIGH Performed By: #### L IPID, CMP #### [facility] [address] [place] [address] Serum or plasma total choles terol/high density lipoprotein (HDL) cholesterol mass ratOrdered By: Celio Mullins on 07-03-2023 Cholesterol.total/Mali sterol in HDL [Mass ratio] 3.2 {ratio} Normal <5.0 [facility] Comment on above: Result Comment: PERF ORMED BY: [place] [address] PATHOLOGIST PROGRAMS DIRECTOR NESHA MAIER M.D. Performed By: #### L IPID, CMP #### [address] Sodium [Moles/volume] in Ser um or PlasmaOrdered By: Celio Mullins on 07-03-2023 Sodium [Moles/Vol] 141 mmol/L Normal 136-145 [facility] [facility] Comment on above: Performed By: #### L IPID, CMP #### [address] Triglyceride [Mass/volume] i n Serum or PlasmaOrdered By: Celio Mullins on 07-03-2023 Triglyceride [Mass/Vol] 92 mg/dL 0-[address] [facility] Comment on above: TRIG ATP III CLASSIF ICATIONTRIG less than 150 mg/dL NormalTRIG 150-199 mg/dL Borderline highTRIG 200-500 mg/dL High TRIG greater than 500 mg/dL Very highStandard traceable to the Center for Disease Conrtrol and Prevention (CDC) test method. Urea nitrogen [Mass/volume] in Serum or PlasmaOrdered By: Celio Mullins on 07-03-2023 Urea nitrogen [Mass/Vol] 13 mg/dL Normal 7-25 [facility] Comment on above: Performed By: #### L IPID, CMP #### [address] A1C with Estimated Average G luon 07-01-2023 Glucose [Mass/Vol] 117 mg/dL Normal [facility] Comment on above: Order Comment: Reaso n for Exam Severe obesity (BMI >= 40);PCOS (polycystic ovarian syndrome Result Comment: PERF ORMED BY: [place] [address] PATHOLOGIST PROGRAMS DIRECTOR NESHA MAIER M.D. Performed By: #### A POB, LIPA #### [facility] , #### CMP, A1C WTH eA #### [place] [address] [place] Alanine aminotransferase [En zymatic activity/volume] in Serum or PlasmaOrdered By: Celio Mullins on 07-01-2023 ALT [Catalytic activity/Vol] 21 U/L Normal 7-52 [facility] Comment on above: Order Comment: Reaso n for Exam Severe obesity (BMI >= 40);PCOS (polycystic ovarian syndrome NON FASTING Performed By: #### A POB, LIPA #### [facility] , #### CMP, A1C [facility] eA #### [facility] [address] [place] [address] [place] Albumin [Mass/volume] in Ser um or Plasma by Bromocresol green (BCG) dye binding methoOrdered By: Celio Mullins on 07-01-2023 Albumin BCG dye [Mass/Vol] 4.6 g/dL 3.5-5.7 [facility] Alkaline phosphatase [Enzyma tic activity/volume] in Serum or PlasmaOrdered By: Celio Mullins on 07-01-2023 ALP [Catalytic activity/Vol] 72 U/L Normal 34-104 [facility] Comment on above: Order Comment: Reaso n for Exam Severe obesity (BMI >= 40);PCOS (polycystic ovarian syndrome NON FASTING Result Comment: PERF ORMED BY: [place] [address] PATHOLOGIST PROGRAMS DIRECTOR NESHA MAIER M.D. Performed By: #### A POB, LIPA #### [facility] , #### CMP, A1C [facility] eA #### [facility] [address] [place] [address] Apolipoprotein B [Mass/volum e] in Serum or PlasmaOrdered By: Celio Mullins on 07-01-2023 Apolipoprotein B [Mass/Vol] 83 mg/dL Normal <90 [facility] Comment on above: Desirable < 90 Charissa almanza High 90 - 99 High 100 - 130 Very High >130 ASCVD RISK THERAPEUTIC TARGET CATEGORY APO B (mg/dL) Very High Risk <80 (if extreme risk <70) High Risk <90 Moderate Risk <90Performed at: [facility] [employer] [id number] Director: Jeanna Case MD, Phone: [phone] Order Comment: Reaso n for Exam Severe obesity (BMI >= 40);PCOS (polycystic ovarian syndrome Result Comment: Hedy rable < 90 Borderline High 90 - 99 High 100 - 130 Very High >130 ASCVD RISK THERAPEUTIC TARGET CATEGORY APO B (mg/dL) Very High Risk <80 (if extreme risk <70) High Risk <90 Moderate Risk <90 Performed at: [facility] [employer] [id number] Legal Billing Clerk: Jeanna Case MD, Phone: [phone] PERFORMED BY: [place] [address] PATHOLOGIST PROGRAMS DIRECTOR NESHA MAIER M.D. Performed By: #### A POB, LIPA #### [facility] , #### CMP, A1C WT eA #### [address] Aspartate aminotransferase [ Enzymatic activity/volume] in Serum or PlasmaOrdered By: Celio Mullins on 07-01-2023 AST [Catalytic activity/Vol] 19 U/L Normal 13-39 [facility] Comment on above: Order Comment: Reaso n for Exam Severe obesity (BMI >= 40);PCOS (polycystic ovarian syndrome NON FASTING Performed By: #### A POB, LIPA #### [facility] , #### CMP, A1C WT eA #### [address] Bilirubin.total [Mass/volume ] in Serum or PlasmaOrdered By: Celio Mullins on 07-01-2023 Bilirubin [Mass/Vol] 0.4 mg/dL Normal 0.3-1.0 [facility] Comment on above: Order Comment: Reaso n for Exam Severe obesity (BMI >= 40);PCOS (polycystic ovarian syndrome NON FASTING Performed By: #### A POB, LIPA #### [facility] , #### CMP, A1C WTH eA #### [facility] [address] [place] [address] [place] Calcium [Mass/volume] in Ser um or PlasmaOrdered By: Celio Mullins on 07-01-2023 Calcium [Mass/Vol] 9.8 mg/dL Normal 8.6-10.3 [facility] Comment on above: Order Comment: Reaso n for Exam Severe obesity (BMI >= 40);PCOS (polycystic ovarian syndrome NON FASTING Performed By: #### A POB, LIPA #### [facility] , #### CMP, A1C WTH eA #### [place] [address] [place] Carbon dioxide, total [Moles /volume] in Serum or PlasmaOrdered By: Celio Mullins on 07-01-2023 CO2 [Moles/Vol] 25.3 mmol/L Normal 21.0-31.0 [facility] Comment on above: Order Comment: Reaso n for Exam Severe obesity (BMI >= 40);PCOS (polycystic ovarian syndrome NON FASTING Performed By: #### A POB, LIPA #### [facility] , #### CMP, A1C WTH eA #### [facility] [address] [place] [address] [place] Chloride [Moles/volume] in S marta or PlasmaOrdered By: Celio Mullins on 07-01-2023 Chloride [Moles/Vol] 105 mmol/L Normal 98-107 [facility] Comment on above: Order Comment: Reaso n for Exam Severe obesity (BMI >= 40);PCOS (polycystic ovarian syndrome NON FASTING Performed By: #### A POB, LIPA #### [facility] , #### CMP, A1C WTH eA #### [facility] [address] [id number] [facility] Comprehensive Metabolic Pane landon 07-01-2023 Albumin [Mass/Vol] 4.6 g/dL Normal 3.5-5.7 [facility] Comment on above: Order Comment: Reaso n for Exam Severe obesity (BMI >= 40);PCOS (polycystic ovarian syndrome NON FASTING Performed By: #### A POB, LIPA #### [facility] , #### CMP, A1C WTH eA #### [place] [address] [place] GFR/1.73 sq M.predicted MDRD (S/P/Bld) [Vol rate/Area] mL/min/{1.73_m2} Normal [facility] Comment on above: Order Comment: Reaso n for Exam Severe obesity (BMI >= 40);PCOS (polycystic ovarian syndrome NON FASTING Performed By: #### A POB, LIPA #### [facility] , #### CMP, A1C WT eA #### [place] [id number] [facility] Creatinine [Mass/volume] in Serum or PlasmaOrdered By: Celio Mullins on 07-01-2023 Creatinine [Mass/Vol] 0.64 mg/dL Normal 0.60-1.20 [facility] Comment on above: Order Comment: Reaso n for Exam Severe obesity (BMI >= 40);PCOS (polycystic ovarian syndrome NON FASTING Performed By: #### A POB, LIPA #### [facility] , #### CMP, A1C WT eA #### [place] [id number] [facility] Glucose [Mass/volume] in Ser um or PlasmaOrdered By: Celio Mullins on 07-01-2023 Glucose [Mass/Vol] 95 mg/dL Normal 70-100 [facility] Comment on above: ADA recommended refe rence rangeRandom Glucose Reference Range is dependent on time and content of last meal. Glucose of more than 200 mg/dL in a nonstressed, ambulatory subject supports the diagnosis of Diabetes Mellitus. Order Comment: Reaso n for Exam Severe obesity (BMI >= 40);PCOS (polycystic ovarian syndrome NON FASTING Result Comment: [place] om Glucose Reference Range is dependent on time and content of last meal. Glucose of more than 200 mg/dL in a nonstressed, ambulatory subject supports the diagnosis of Diabetes Mellitus. ADA recommended reference range Performed By: #### A POB, LIPA #### [facility] , #### CMP, A1C WTH eA #### [facility] [address] [id number] [facility] Glucose mean value [Mass/vol ume] in Blood Estimated from glycated hemoglobinOrdered By: Celio Mullins on 07-01-2023 Average glucose Estimated from glycated hemoglobin (Bld) [Mass/Vol] 117 mg/dL [facility] Hemoglobin A1c percentageOrd ered By: Celio Mullins on 07-01-2023 HbA1c (Bld) [Mass fraction] 5.7 % High 4.3-5.6 [facility] Comment on above: Increased risk for [...] , #### CMP, A1C WTH eA #### [facility] [address] [id number] [facility] Lipoprotein (a)on 07-01-2023 Lipoprotein a [Mass/Vol] 13.0 mg/dL Normal <75.0 [facility] Comment on above: Order [...] across ethnicities. Performed at: CB - [facility] [address] [id number] Legal Billing Clerk: Cassius Zhong PhD, Phone: [phone] Performed By: #### A POB, LIPA #### [facility] , #### CMP, A1C WTH eA #### [address] No Panel InformationOrdered By: Celio Mullins on 07-01-2023 Estimated GFR (CKD-EPI) > 60.0 mL/Min [facility] Creatinine Clearance (Chem N/A [facility] Potassium [Moles/volume] in Serum or PlasmaOrdered By: Celio Mullins on 07-01-2023 Potassium [Moles/Vol] 3.8 mmol/L Normal 3.5-5.1 [facility] Comment on above: Order Comment: Reaso n for Exam Severe obesity (BMI >= 40);PCOS (polycystic ovarian syndrome NON FASTING Performed By: #### A POB, LIPA #### [facility] , #### CMP, A1C WT eA #### [place] [address] [place] Protein [Mass/volume] in Ser um or PlasmaOrdered By: Celio Mullins on 07-01-2023 Protein [Mass/Vol] 7.8 g/dL Normal 6.4-8.9 [facility] Comment on above: Order Comment: Reaso n for Exam Severe obesity (BMI >= 40);PCOS (polycystic ovarian syndrome NON FASTING Performed By: #### A POB, LIPA #### [facility] , #### CMP, A1C WTH eA #### [place] [address] [place] Serum globulin measurement b y calculation (mass/volume)Ordered By: Celio Mullins on 07-01-2023 Globulin (S) [Mass/Vol] 3.2 g/dL Normal [facility] Comment on above: Order Comment: Reaso n for Exam Severe obesity (BMI >= 40);PCOS (polycystic ovarian syndrome NON FASTING Performed By: #### A POB, LIPA #### [facility] , #### CMP, A1C WTH eA #### [facility] [address] Serum or plasma albumin/glob ulin mass ratioOrdered By: Celio Mullins on 07-01-2023 Albumin/Globulin [Mass ratio] 1.4 {ratio} Normal [facility] Comment on above: Order Comment: Reaso n for Exam Severe obesity (BMI >= 40);PCOS (polycystic ovarian syndrome NON FASTING Performed By: #### A POB, LIPA #### [facility] , #### CMP, A1C WT eA #### [facility] [address] [place] [address] Serum or plasma anion gap de terminationOrdered By: Celio Mullins on 07-01-2023 Anion gap [Moles/Vol] 11.5 mmol/L Normal 6.0-15.0 [facility] Comment on above: Order Comment: Reaso n for Exam Severe obesity (BMI >= 40);PCOS (polycystic ovarian syndrome NON FASTING Performed By: #### A POB, LIPA #### [facility] , #### CMP, A1C WT eA #### [address] Serum or plasma lipoprotein a measurement (moles/volume)Ordered By: Celio Mullins on 07-01-2023 Lipoprotein a [Moles/Vol] 13.0 nmol/L <75.0 [facility] Comment on above: Note: Values greater than or equal to 75.0 nmol/L may indicate an independent risk factor for CHD, but must be evaluated with caution when applied to non- populations due to the influence of genetic factors on Lp(a) across ethnicities.Performed at: [facility] [id number] Director: Cassius Zhong PhD, Phone: [phone] Sodium [Moles/volume] in Ser um or PlasmaOrdered By: Celio Mullins on 07-01-2023 Sodium [Moles/Vol] 138 mmol/L Normal 136-145 [facility] Comment on above: Order Comment: Reaso n for Exam Severe obesity (BMI >= 40);PCOS (polycystic ovarian syndrome NON FASTING Performed By: #### A POB, LIPA #### [facility] , #### CMP, A1C WTH eA #### [facility] [address] [id number] [facility] Urea nitrogen [Mass/volume] in Serum or PlasmaOrdered By: Celio Mullins on 07-01-2023 Urea nitrogen [Mass/Vol] 16 mg/dL Normal 7-25 [facility] Comment on above: Order Comment: Reaso n for Exam Severe obesity (BMI >= 40);PCOS (polycystic ovarian syndrome NON FASTING Performed By: #### A POB, LIPA #### [facility] , #### CMP, A1C WTH eA #### [facility] [address] [id number] [facility] COVID Quick Testingon 2022 Result Negative [facility] Other SARS-CoV-2 (COVID-19) RNA NA A+probe Ql (Resp)on 02-11-2023 SARS-CoV-2 (COVID-19) RNA SURI+probe Ql (Unsp spec) Negative [facility] [employer] Other DHEA-SULFATEon 01-01-2023 DHEA-Sulfate 95.3 ug/dL Normal 84.8-378.0 [facility] Comment on above: Performed By: #### D RIMA #### [facility] [address] [place] [address] Dr. Kaushik Palomares FSHon 01-01-2023 FSH 4.6 mIU/mL Normal [facility] Comment on above: Result Comment: Adul t Female: Follicular phase 3.5 - 12.5 Ovulation phase 4.7 - 21.5 Luteal phase 1.7 - 7.7 Postmenopausal 25.8 - 134.8 Performed By: #### C BC #### [facility] [address] [address] [address] Kaushik Paloamres LUTEINIZING HORMONE (LH)on 01-01-2023 LH 3.5 mIU/mL Normal [facility] Comment on above: Result Comment: Adul t Female: Follicular phase 2.4 - 12.6 Ovulation phase 14.0 - 95.6 Luteal phase 1.0 - 11.4 Postmenopausal 7.7 - 58.5 Performed By: #### L BCL #### [facility] [address] [place] [address] Dr. Kaushik Palomares CBC AUTO DIFFon 12-31-2022 BASO # 0.1 103/ul Normal 0.0-0.1 [facility] Comment on above: Performed By: #### C BC #### [facility] [address] [place] [address] Dr. Kaushik Palomares Basophils/100 WBC (Bld) 0.8 % Normal 0.2-2.0 [facility] Comment on above: Performed By: #### C BC #### [facility] [address] [place] [address] Dr. Kaushik Palomares EO # 0.1 103/ul Normal 0.0-0.7 [facility] Comment on above: Performed By: #### C BC #### [facility] [address] [place] [address] Dr. Kaushik Palomares Eosinophils/100 WBC (Bld) 1.7 % Normal 0.9-7.0 [facility] Comment on above: Performed By: #### C BC #### [facility] [address] [place] [address] Dr. Kaushik Palomares Erythrocyte distribution width (RBC) [Ratio] 12.8 % Normal 11.0-15.0 [facility] Comment on above: Performed By: #### C BC #### [facility] [address] [place] [address] Dr. Kaushik Palomares Hematocrit (Bld) [Volume fraction] 33.0 % Critically low 36.0-48.0 [facility] Comment on above: Performed By: #### C BC #### [facility] [address] [place] [address] Dr. Kaushik Palomares Hemoglobin (Bld) [Mass/Vol] 11.0 g/dL Critically low 12.0-16.0 [facility] Comment on above: Performed By: #### C BC #### [facility] [address] [address] [address] Kaushik Palomares IG # 0.03 10e3/ul Normal 0.00-0.03 [facility] Comment on above: Performed By: #### C BC #### [facility] [address] [place] [address] Dr. Kaushik Palomares IG % 0.5 % Normal 0.0-0.5 [facility] Comment on above: Performed By: #### C BC #### [facility] [address] [place] [address] Dr. Kaushik Palomares LYMPH # 2.4 103/ul Normal 1.2-3.8 [facility] Comment on above: Performed By: #### C BC #### [facility] [address] [place] [address] Dr. Kaushik Palomares Lymphocytes/100 WBC (Bld) 36.6 % Normal 20.5-60.0 [facility] Comment on above: Performed By: #### C BC #### [facility] [address] [place] [address] Dr. Kaushik Palomares MANUAL DIFF REQ NO Normal [facility] Comment on above: Performed By: #### C BC #### [facility] [address] [place] [address] Dr. Kaushik Palomares MCH (RBC) [Entitic mass] 29.0 pg Normal 26.7-34.0 [facility] Comment on above: Performed By: #### C BC #### [facility] [address] [place] [address] Dr. Kaushik Palomares MCHC (RBC) [Mass/Vol] 33.3 g/dL Normal 29.9-35.2 [facility] Comment on above: Performed By: #### C BC #### [facility] [address] [place] [address] Dr. Kaushik Palomares MCV (RBC) [Entitic vol] 87.1 fL Normal 81.0-99.0 [facility] Comment on above: Performed By: #### C BC #### [facility] [address] [address] [address] Kaushik Palomares MONO # 0.2 103/ul Critically low 0.3-0.8 [facility] Comment on above: Performed By: #### C BC #### [facility] [address] [address] [address] Kaushik Palomares Monocytes/100 WBC (Bld) 3.6 % Normal 1.7-12.0 [facility] Comment on above: Performed By: #### C BC #### [facility] [address] [address] [address] Kaushik Palomares NEUT # 3.7 103/ul Normal 1.4-6.5 [facility] Comment on above: Performed By: #### C BC #### [facility] [address] [place] [address] Dr. Kaushik Palomares Neutrophils/100 WBC (Bld) 56.8 % Normal 43.0-75.0 [facility] Comment on above: Performed By: #### C BC #### [facility] [address] [place] [address] Dr. Kaushik Palomares Platelet mean volume (Bld) [Entitic vol] 9.8 fL Normal 9.5-13.5 [facility] Comment on above: Performed By: #### C BC #### [facility] [address] [place] [address] Dr. Kaushik Palomares PLT 234 103/ul Normal 150-450 [facility] Comment on above: Performed By: #### C BC #### [facility] [address] [address] [address] Kaushik Palomares RBC 3.79 106/ul Critically low 4.20-5.40 [facility] Comment on above: Performed By: #### C BC #### [facility] [address] [address] [address] Kaushik Palomares WBC 6.5 103/ul Normal 4.0-11.0 [facility] Comment on above: Performed By: #### C BC #### [facility] [address] [place] [address] Dr. Kaushik Palomares FREE T4on 12-31-2022 Free T4 [Mass/Vol] 0.79 ng/dL Normal 0.76-1.46 [facility] Comment on above: Performed By: #### F T4 #### [facility] [address] [place] [address] Dr. Kaushik Palomares GLYCOHEMOGLOBIN A1Con 2022 ADA RECOMMENDATION SEE BELOW Normal [facility] Comment on above: Result Comment: ADA RECOMMENDED LIMIT 4.0 - 6.0 ADA THERAPEUTIC TARGET < 7.0 ACTION SUGGESTED > 7.0 Performed By: #### A 1C #### [facility] [address] [place] [address] Dr. Kaushik Palomares Glucose [Mass/Vol] 111 mg/dL Normal [facility] Comment on above: Performed By: #### A 1C #### [facility] [address] [place] [address] Dr. Kaushik Palomares HbA1c (Bld) [Mass fraction] 5.5 % Normal 4.5-6.2 [facility] Comment on above: Performed By: #### A 1C #### [facility] [address] [place] [address] Dr. Kaushik Palomares TSHon 12-31-2022 TSH 1.114 uIU/mL Normal 0.358-3.740 [facility] Comment on above: Performed By: #### C BC #### [facility] [address] [place] [address] Dr. Kaushik Palomares US PELVIS AND TRANSVAGon [...] SUGEY MACDONALD Date: 2022-11-26 15:58 Normal [facility] XR SACRUM_COCCYXon 3 XR SACRUM_COCCYX EXAMINATION: [...] SUGEY MACDONALD Date: 2022-11-08 10:01 Normal [facility] PAP ACOG PANEL 2: 30 to 65on 11-05-2022 . . Normal [facility] Comment on above: Result Comment: Perf ormed at: WB Performed By: #### C BC #### [facility] [address] [address] [address] Kaushik Palomares Age Gdln ACOG Testing 30-65 Normal [facility] Comment on above: Performed By: #### C BC #### [facility] [address] [address] [address] Kaushik Palomares DIAGNOSIS: Comment Normal [facility] Comment on above: Result Comment: NEGA TIVE FOR INTRAEPITHELIAL LESION OR MALIGNANCY. Performed at: WB Performed By: #### C BC #### [facility] [address] [address] [address] Kaushik Palomares HPV Aptima Negative Normal Negative [facility] Comment on above: Result Comment: This nucleic acid amplification test detects fourteen high-risk HPV types (16,18,31,33,35,39,45,51,52,56,58,59,66,68) without differentiation. Performed at: =G Performed By: #### C BC #### [facility] [address] [address] [address] Kaushik Palomares HPV Genotype Reflex Comment Normal [facility] Comment on above: Result Comment: Crit ermaico not met, HPV Genotype not performed. Performed at: WB Performed By: #### C BC #### [facility] [address] [place] [address] Dr. Kaushik Palomares Methodology: Comment Normal [facility] Comment on above: Result Comment: This liquid based ThinPrep(R) pap test was screened with the use of an image guided system. Performed at: WB Performed By: #### C BC #### [facility] [address] [place] [address] Dr. Kaushik Palomares Note: Comment Normal [facility] Comment on above: Result Comment: The [...] WB Performed By: #### C BC #### [facility] [address] [place] [address] Dr. Kaushik Palomares Performed by: Comment Normal [facility] Comment on above: Result Comment: Robi Graham, Family And Consumer Science Professor (ASCP) Performed at: WB Performed By: #### C BC #### [facility] [address] [place], [place] [id number] Dr. Kaushik Palomares Specimen adequacy: Comment Normal [facility] Comment on above: Result Comment: Sati sfactory for evaluation. Endocervical and/or squamous metaplastic cells (endocervical component) are present. Performed at: WB Performed By: #### C BC #### [facility] [address] [place] [address] Dr. Kaushik Palomares COVID/FLU RT-PCRon SARS-CoV-2 (COVID-19) RNA SURI+probe Ql (Unsp spec) Negative [facility] [employer] Other COVID/FLU RT-PCR Negative [facility] [place] Other HCG-BETA SUBUNIT QUANTon hCG,Beta Subunit,Qnt,Serum <1 Normal [facility] Comment on above: Result Comment: Fema le (Non-) 0 - 5 (Postmenopausal) 0 - 8 . Female () Weeks of Gestation 3 6 - 71 4 10 - 750 5 197 - 8616 6 263 - 13334 7 [phone] -[phone] 8 56982 -[phone] 9 60941 -[phone] 10 51503 -[phone] 12 62446 -678284 14 95112 - 03682 15 92446 - 55588 16 0657 - 34472 17 9657 - 38795 18 8558 - 73512 Rg ECLIA methodology Performed By: #### H CGSUB #### [facility] [address] [place] [address] Dr. Kaushik Palomares T4 LABCORPon 01-22-2022 T4 [Mass/Vol] 7.8 ug/dL Normal 4.5-12.0 [facility] Comment on above: Performed By: #### T 4LC #### [facility] [address] [place] [address] Dr. Kaushik Palomares CBC AUTO DIFFon 01-21-2022 BASO # 0.1 103/ul Normal 0.0-0.1 [facility] Comment on above: Performed By: #### C BC #### [facility] [address] [place] [address] Dr. Kaushik Palomares Basophils/100 WBC (Bld) 0.6 % Normal 0.2-2.0 [facility] Comment on above: Performed By: #### C BC #### [facility] [address] [place] [address] Dr. Kaushik Palomares EO # 0.1 103/ul Normal 0.0-0.7 [facility] Comment on above: Performed By: #### C BC #### [facility] [address] [place] [address] Dr. Kaushik Palomares Eosinophils/100 WBC (Bld) 1.2 % Normal 0.9-7.0 [facility] Comment on above: Performed By: #### C BC #### [facility] [address] [place] [address] Dr. Kaushik Palomares Erythrocyte distribution width (RBC) [Ratio] 13.3 % Normal 11.0-15.0 [facility] Comment on above: Performed By: #### C BC #### [facility] [address] [place] [address] Dr. Kaushik Palomares Hematocrit (Bld) [Volume fraction] 40.0 % Normal 36.0-48.0 [facility] Comment on above: Performed By: #### C BC #### [facility] [address] [place] [address] Dr. Kaushik Palomares Hemoglobin (Bld) [Mass/Vol] 12.7 g/dL Normal 12.0-16.0 [facility] Comment on above: Performed By: #### C BC #### [facility] [address] [place] [address] Dr. Kaushik Palomares IG # 0.02 10e3/ul Normal 0.00-0.03 [facility] Comment on above: Performed By: #### C BC #### [facility] [address] [place] [address] Dr. Kaushik Palomares IG % 0.2 % Normal 0.0-0.5 [facility] Comment on above: Performed By: #### C BC #### [facility] [address] [place] [address] Dr. Kaushik Palomares LYMPH # 3.0 103/ul Normal 1.2-3.8 [facility] Comment on above: Performed By: #### C BC #### [facility] [address] [place] [address] Dr. Kaushik Palomares Lymphocytes/100 WBC (Bld) 32.9 % Normal 20.5-60.0 [facility] Comment on above: Performed By: #### C BC #### [facility] [address] [place] [address] Dr. Kaushik Palomares MANUAL DIFF REQ NO Normal [facility] Comment on above: Performed By: #### C BC #### [facility] [address] [place] [address] Dr. Kaushik Palomares MCH (RBC) [Entitic mass] 28.5 pg Normal 26.7-34.0 [facility] Comment on above: Performed By: #### C BC #### [facility] [address] [place] [address] Dr. Kaushik Palomares MCHC (RBC) [Mass/Vol] 31.8 g/dL Normal 29.9-35.2 [facility] Comment on above: Performed By: #### C BC #### [facility] [address] [place] [address] Dr. Kaushik Palomares MCV (RBC) [Entitic vol] 89.7 fL Normal 81.0-99.0 [facility] Comment on above: Performed By: #### C BC #### [facility] [address] [place] [address] Dr. Kaushik Palomares MONO # 0.5 103/ul Normal 0.3-0.8 [facility] Comment on above: Performed By: #### C BC #### [facility] [address] [place] [address] Dr. Kaushik Palomares Monocytes/100 WBC (Bld) 5.1 % Normal 1.7-12.0 [facility] Comment on above: Performed By: #### C BC #### [facility] [address] [place] [address] Dr. Kaushik Palomares NEUT # 5.4 103/ul Normal 1.4-6.5 [facility] Comment on above: Performed By: #### C BC #### [facility] [address] [place] [address] Dr. Kaushik Palomares Neutrophils/100 WBC (Bld) 60.0 % Normal 43.0-75.0 [facility] Comment on above: Performed By: #### C BC #### [facility] [address] [address] [address] Kaushik Palomares Platelet mean volume (Bld) [Entitic vol] 9.3 fL Critically low 9.5-13.5 [facility] Comment on above: Performed By: #### C BC #### [facility] [address] [address] [address] Kaushik Palomares PLT 221 103/ul Normal 150-450 [facility] Comment on above: Performed By: #### C BC #### [facility] [address] [address] [address] Kaushik Palomares RBC 4.46 106/ul Normal 4.20-5.40 [facility] Comment on above: Performed By: #### C BC #### [facility] [address] [place] [address] Dr. Kaushik Palomares WBC 9.0 103/ul Normal 4.0-11.0 [facility] Comment on above: Performed By: #### C BC #### [facility] [address] [place] [address] Dr. Kaushik Palomares GLYCOHEMOGLOBIN A1Con 2021 ADA RECOMMENDATION SEE BELOW Normal [facility] Comment on above: Result Comment: ADA RECOMMENDED LIMIT 4.0 - 6.0 ADA THERAPEUTIC TARGET < 7.0 ACTION SUGGESTED > 7.0 Performed By: #### C BC #### [facility] [address] [place] [address] Dr. Kaushik Palomares Glucose [Mass/Vol] 94 mg/dL Normal [facility] Comment on above: Performed By: #### C BC #### [facility] [address] [address] [address] Kaushik Palomares HbA1c (Bld) [Mass fraction] 4.9 % Normal 4.5-6.2 [facility] Comment on above: Performed By: #### C BC #### [facility] [address] [place] [address] Dr. Kaushik Palomares LIPID PROFILEon 01-21-2022 CHOL-HDL RATIO NORM SEE BELOW Normal [facility] Comment on above: Result Comment: 3.3 - 4.4 LOW RISK 4.4 - 7.1 AVERAGE RISK 7.1 - 11.0 MODERATE RISK >11.0 HIGH RISK Performed By: #### L IPID, CMP, TSH #### [facility] [address] [address] [address] Kaushik Palomares Cholesterol [Mass/Vol] 168 mg/dL Normal <=200 [facility] Comment on above: Performed By: #### L IPID, CMP, TSH #### [facility] [address] [address] [address] Kaushik Palomares Cholesterol in HDL [Mass/Vol] 41 mg/dL Normal 40-60 [facility] Comment on above: Performed By: #### L IPID, CMP, TSH #### [facility] [address] [address] [address] Kaushik Palomares Cholesterol in LDL [Mass/Vol] 90.2 mg/dL Normal [facility] Comment on above: Performed By: #### L IPID, CMP, TSH #### [facility] [address] [address] [address] Kaushik Palomares Cholesterol.total/Mali sterol in HDL [Mass ratio] 4.1 {ratio} Normal [facility] Comment on above: Performed By: #### L IPID, CMP, TSH #### [facility] [address] [address] [address] Kaushik Palomares HDL NORMAL > or = 60 mg/dl - LO W CARDIOVASCULAR RISK <40 mg/dl - HIGH CARDIOVASCULAR RISK Normal [facility] Comment on above: Performed By: #### L IPID, CMP, TSH #### [facility] [address] [address] [address] Kaushik Palomares LDL CALC NORMAL SEE BELOW Normal [facility] Comment on above: Result Comment: <100 mg/dl OPTIMAL 100 - 129 mg/dl NEAR OR ABOVE OPTIMAL 130 - 159 mg/dl BORDERLINE HIGH 160 - 189 mg/dl HIGH >190 mg/dl VERY HIGH Performed By: #### L IPID, CMP, TSH #### [facility] [address] [address] [address] Kaushik Palomares Triglyceride [Mass/Vol] 184 mg/dL Critically high <=150 [facility] Comment on above: Performed By: #### L IPID, CMP, TSH #### [facility] [address] [address] [address] Kaushik Palomares VLDL CALC 36.8 mg/dL Normal [facility] Comment on above: Performed By: #### L IPID, CMP, TSH #### [facility] [address] [address] [address] Kaushik Palomares MICROALBUMIN, RAND URon - mALB 2.0 mg/L Normal <=30.0 [facility] Comment on above: Performed By: #### C BC #### [facility] [address] [place] [address] Dr. Kaushik Palomares PROF 14(COMP METB)on 022 Albumin [Mass/Vol] 3.7 g/dL Normal 3.4-5.0 [facility] Comment on above: Performed By: #### L IPID, CMP, TSH #### [facility] [address] [place] [address] Dr. Kaushik Palomares Albumin/Globulin [Mass ratio] 0.9 {ratio} Normal [facility] Comment on above: Performed By: #### L IPID, CMP, TSH #### [facility] [address] [place] [address] Dr. Kaushik Palomares ALP [Catalytic activity/Vol] 53 U/L Normal 46-116 [facility] Comment on above: Performed By: #### L IPID, CMP, TSH #### [facility] [address] [place] [address] Dr. Kaushik Palomares ALT [Catalytic activity/Vol] 44 U/L Normal 14-59 [facility] Comment on above: Performed By: #### L IPID, CMP, TSH #### [facility] [address] [place] [address] Dr. Kaushik Palomares Anion gap [Moles/Vol] 6.8 mmol/L Normal [facility] Comment on above: Performed By: #### L IPID, CMP, TSH #### [facility] [address] [address] [address] Kaushik Palomares AST [Catalytic activity/Vol] 22 U/L Normal 15-37 [facility] Comment on above: Performed By: #### L IPID, CMP, TSH #### [facility] [address] [address] [address] Kaushik Palomares Bilirubin [Mass/Vol] 0.3 mg/dL Normal 0.2-1.0 [facility] Comment on above: Performed By: #### L IPID, CMP, TSH #### [facility] [address] [address] [address] Kaushik Palomares Calcium [Mass/Vol] 9.2 mg/dL Normal 8.5-10.1 [facility] Comment on above: Performed By: #### L IPID, CMP, TSH #### [facility] [address] [place] [address] Dr. Kaushik Palomares Chloride [Moles/Vol] 102 mmol/L Normal 98-107 [facility] Comment on above: Performed By: #### L IPID, CMP, TSH #### [facility] [address] [address] [address] Kaushik Palomares CO2 [Moles/Vol] 31.4 mmol/L Normal 21.0-32.0 [facility] Comment on above: Performed By: #### L IPID, CMP, TSH #### [facility] [address] [address] [address] Kaushik Palomares Creatinine [Mass/Vol] 0.71 mg/dL Normal 0.55-1.02 [facility] Comment on above: Performed By: #### L IPID, CMP, TSH #### [facility] [address] [place] [address] Dr. Kaushik Palomares EGFR-AF [place]LANDER >60 Normal >=60 [facility] Comment on above: Performed By: #### L IPID, CMP, TSH #### [facility] [address] [address] [address] Kaushik Palomares EGFR-NON AF [place]ER >60 Normal >=60 [facility] Comment on above: Performed By: #### L IPID, CMP, TSH #### [facility] [address] [address] [address] Kaushik Palomares Globulin (S) [Mass/Vol] 4.2 g/dL Normal [facility] Comment on above: Performed By: #### L IPID, CMP, TSH #### [facility] [address] [address] [address] Kaushik Palomares Glucose [Mass/Vol] 93 mg/dL Normal 74-106 [facility] Comment on above: Performed By: #### L IPID, CMP, TSH #### [facility] [address] [place] [address] Dr. Kaushik Palomares Potassium [Moles/Vol] 4.2 mmol/L Normal 3.5-5.1 [facility] Comment on above: Performed By: #### L IPID, CMP, TSH #### [facility] [address] [place] [address] Dr. Kaushik Palomares Protein [Mass/Vol] 7.9 g/dL Normal 6.4-8.2 [facility] Comment on above: Performed By: #### L IPID, CMP, TSH #### [facility] [address] [place] [address] Dr. Kaushik Palomares Sodium [Moles/Vol] 136 mmol/L Normal 136-145 [facility] Comment on above: Performed By: #### L IPID, CMP, TSH #### [facility] [address] [place] [address] Dr. Kaushik Palomares Urea nitrogen [Mass/Vol] 11.0 mg/dL Normal 7.0-18.0 [facility] Comment on above: Performed By: #### L IPID, CMP, TSH #### [facility] [address] [place] [address] Dr. Kaushik Palomares Urea nitrogen/Creatinine [Mass ratio] 15.5 mg/mg Normal [facility] Comment on above: Performed By: #### L IPID, CMP, TSH #### [facility] [address] [place] [address] Dr. Kaushik Palomares TSHon 01-21-2022 TSH 1.298 uIU/mL Normal 0.358-3.740 [facility] Comment on above: Performed By: #### C BC #### [facility] [address] [address] [address] Kaushik Palomares TSH RANGE SEE BELOW Normal [facility] Comment on above: Result Comment: <0.3 4 UIU/ml HYPERTHYROID 0.34-5.60 UIU/ml EUTHYROID >5.60 UIU/ml HYPOTHYROID Performed By: #### C BC #### [facility] [address] [address] [address] Kaushik Palomares COVID Quick Testingon 2020 Result Negative [employer] Other Quick Strepon 06-17-2021 S. pyogenes Org specific cx Ql (Throat) Negative [employer] Other Quick Strep [employer] Other Urinalysis - AUTOMATEDon Appearance (U) cloudy [employer] Other Bilirubin Ql (U) Negative [employer] Other Color (U) yellow [employer] Other Glucose Ql (U) Negative [employer] Other Hemoglobin Ql (U) large [employer] Other Ketones Ql (U) Negative [employer] Other Leukocyte esterase Test strip Ql (U) trace [employer] Other Nitrite Ql (U) Positive [employer] Other pH (U) 5.5 [pH] [employer] Other Protein Ql (U) 100 [employer] Other Specific gravity (U) [Rel density] 1.025 [employer] Other Urobilinogen (U) [Mass/Vol] 0.2 mg/dL [facility] [employer] Other [facility]inal[facility] - [facility]OMATED [facility] [employer] Other Urine Cultureon 05-31-2021 Urine Culture >100,000 [facility] [employer] Other Urine Culture <16 [facility] [employer] Other Urine Culture >16 [facility] [employer] Other Urine Culture <4 [facility] [employer] Other Urine Culture 8 [facility] [employer] Other Urine Culture <2 [facility] [employer] Other Urine Culture <1 [facility] [employer] Other Urine Culture >2 [facility] [employer] Other Urine Culture <0.5 [facility] [employer] Other Urine Culture >8 [facility] [employer] Other Urine Culture >4 [facility] [employer] Other Urine Culture <32 [facility] [employer] Other Urine Culture >2/38 [facility] [employer] Other Vital Signs Date Time Vital Sign Value 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 11-26-2023 08:40-0400 Body height 162.56 cm ROSITA Marc Work Phone: [facility] 11-26-2023 08:40-0400 Body mass index (BMI) [Ratio] 52.9 kg/m2 ROSITA Marc Work Phone: [facility] 11-26-2023 08:40-0400 Body weight 139.79 kg ROSITA Marc Work Phone: [facility] 11-26-2023 08:40-0400 Diastolic blood pressure 79 mm[Hg] ROSITA Barclayrbacher Work Phone: [facility] 11-26-2023 08:40-0400 Heart rate 97 /min [employer]ERAL HOME MANAGERJosé Miguel ThaoManisha Denyrbacher Work Phone: [facility] 11-26-2023 08:40-0400 SaO2% (BldA) [Mass fraction] 99 % [employer]ERAL HOME MANAGERJosé Miguel ColladoManisha Charlyacher Work Phone: [facility] 11-26-2023 08:40-0400 Systolic blood pressure 131 mm[Hg] FUNERAL HOME MANAGERJosé Miguel Barclayrbacher Work Phone: [facility] 11-03-2023 14:06-0400 Body height 162.56 cm [employer]ERAL HOME MANAGERJosé Miguel ColladoManisha Charlyacher Work Phone: [facility] 11-03-2023 14:06-0400 Body mass index (BMI) [Ratio] 53.1 kg/m2 [employer] HOME MANAGERJosé Miguel Praksacher Work Phone: [facility] 11-03-2023 14:06-0400 Body weight 140.61 kg FUNERAL HOME MANAGERJosé Miguel Parksacher Work Phone: [facility] 11-03-2023 14:06-0400 Diastolic blood pressure 78 mm[Hg] ROSITA Colladofer Charlyacher Work Phone: [facility] 11-03-2023 14:06-0400 Heart rate 105 /min [employer]ERAL HOME MANAGERJosé Miguel Parksacher Work Phone: [facility] 11-03-2023 14:06-0400 SaO2% (BldA) [Mass fraction] 98 % [employer]ERAL HOME MANAGERJosé Miguel ColladoManisha Charlyacher Work Phone: [facility] 11-03-2023 14:06-0400 Systolic blood pressure 118 mm[Hg] ROSITA Barclayrbacher Work Phone: [facility] 10-08-2023 10:50-0500 Body height 162.56 cm ROSITA Barclayrbacher Work Phone: [facility] 10-08-2023 10:50-0500 Body weight 139.25 kg [employer]ERAL HOME MANAGERJosé Miguel Barclayrbacher Work Phone: [facility] 10-01-2023 09:20-0500 Body height 162.56 cm FUNERAL HOME MANAGERJosé Miguel Barclayrbacher Work Phone: [facility] 10-01-2023 09:20-0500 Body mass index (BMI) [Ratio] 53.6 kg/m2 [employer]ER[employer] HOME MANAGERJosé Miguel Barclayrbacher Work Phone: [facility] 10-01-2023 09:20-0500 Body weight 141.69 kg FUNERAL HOME MANAGERJosé Miguel Barclayrbacher Work Phone: [facility] 10-01-2023 09:20-0500 Diastolic blood pressure 75 mm[Hg] FUNERAL HOME MANAGERJosé Miguel Barclayrbacher Work Phone: [facility] 10-01-2023 09:20-0500 Heart rate 85 /min FUNERAL HOME MANAGERJosé Miguel Barclayrbacher Work Phone: [facility] 10-01-2023 09:20-0500 Respiratory rate 18 /min [employer]ERAL HOME MANAGERJosé Miguel Barclayrbacher Work Phone: [facility] 10-01-2023 09:20-0500 SaO2% (BldA) [Mass fraction] 99 % FUNERAL HOME MANAGERJosé Miguel Parksacher Work Phone: [facility] 10-01-2023 09:20-0500 Systolic blood pressure 123 mm[Hg] FUNERAL HOME MANAGERJosé Miguel Barclayrbacher Work Phone: [facility] 09-03-2023 08:00-0500 Body height 162.56 cm FUNERAL HOME MANAGERJosé Miguel Barclayrbacher Work Phone: [facility] 09-03-2023 08:00-0500 Body weight 138.79 kg FUNERAL HOME MANAGERJosé Miguel Barclayrbacher Work Phone: [facility] 09-03-2023 08:00-0500 Diastolic blood pressure 78 mm[Hg] FUNERAL HOME MANAGER Manisha Tari Work Phone: [facility] 09-03-2023 08:00-0500 Systolic blood pressure 118 mm[Hg] FUNERAL HOME MANAGER Manisha Charlyachetad Work Phone: [facility] 08-19-2023 09:45-0500 Body height 162.56 cm Nely Cruz Other [facility] 08-13-2023 14:00-0500 Body height 162.56 cm Manisha Marc Other [facility] 08-13-2023 14:00-0500 Body mass index (BMI) [Ratio] 52.35 kg/m2 Manisha Marc Other [employer] Other 08-13-2023 14:00-0500 Body weight 138.35 kg Manisha Marc Other [employer] Other 08-13-2023 14:00-0500 Body weight 138.34 kg ROSITA Manisha Tari Work Phone: [facility] 08-13-2023 14:00-0500 Diastolic blood pressure 80 mm[Hg] Manisha Marc Other [facility] 08-13-2023 14:00-0500 SaO2% (BldA) [Mass fraction] 98 % Manisha Marc Other [employer] Other 08-13-2023 14:00-0500 Systolic blood pressure 114 mm[Hg] Manisha Marc Other [facility] 07-15-2023 07:45-0500 Body height 162.56 cm Celio Mullins Other [facility] 07-15-2023 07:45-0500 Body mass index (BMI) [Ratio] 52.98 kg/m2 Celio Mullins Other [employer] Other 07-15-2023 07:45-0500 Body weight 140.03 kg Celio Mullins Other [employer] Other 07-15-2023 07:45-0500 Body weight 140.02 kg ROSITA Colladofer Tari Work Phone: [facility] 07-15-2023 07:45-0500 Diastolic blood pressure 66 mm[Hg] Celio Mullins Other [facility] 07-15-2023 07:45-0500 Respiratory rate 18 /min Celio Mullins Other [employer] Other 07-15-2023 07:45-0500 SaO2% (BldA) [Mass fraction] 98 % Celio Mullins Other [employer] Other 07-15-2023 07:45-0500 Systolic blood pressure 112 mm[Hg] Celio Mullins Other [facility] 07-07-2023 11:15-0500 Body height 162.56 cm Michelle Ernandez Other [facility] 07-07-2023 11:15-0500 Body mass index (BMI) [Ratio] 52.69 kg/m2 Michelle Ernandez Other [employer] Other 07-07-2023 11:15-0500 Body temperature 98 [degF] Michelle Ernandez Other [employer] Other 07-07-2023 11:15-0500 Body weight 139.26 kg Michelle Oma Other [employer] Other 07-07-2023 11:15-0500 Body weight 139.25 kg ROSITA Marc Work Phone: [facility] 07-07-2023 11:15-0500 Respiratory rate 20 /min Michelle Oma Other [employer] Other 07-07-2023 11:15-0500 SaO2% (BldA) [Mass fraction] 98 % Michelle Oma Other [employer] Other 06-29-2023 10:20-0500 Body height 162.56 cm Michelle Oma Other [employer] Other 06-29-2023 10:20-0500 Body mass index (BMI) [Ratio] 53.03 kg/m2 Michelle Oma Other [employer] Other 06-29-2023 10:20-0500 Body temperature 99.7 [degF] Michelle Oma Other [employer] Other 06-29-2023 10:20-0500 Body weight 140.16 kg Michelle Oma Other [employer] Other 06-29-2023 10:20-0500 Respiratory rate 19 /min Michelle Oma Other [employer] Other 06-29-2023 10:20-0500 SaO2% (BldA) [Mass fraction] 98 % Michelle Oma Other [employer] Other 06-11-2023 15:30-0400 Body height 162.56 cm Manisha Barclayfani Other [employer] Other 06-11-2023 15:30-0400 Body mass index (BMI) [Ratio] 53.79 kg/m2 Manisha Barclayeliudmarycarmentad Other [employer] Other 06-11-2023 15:30-0400 Body weight 142.16 kg Manisha Tari Other [employer] Other 06-11-2023 15:30-0400 Diastolic blood pressure 62 mm[Hg] Manisha Barclayeliudmarycarmentad Other [employer] Other 06-11-2023 15:30-0400 SaO2% (BldA) [Mass fraction] 99 % Manisha Barclayfani Other [employer] Other 06-11-2023 15:30-0400 Systolic blood pressure 126 mm[Hg] Manisha Keanetad Other [employer] Other 05-06-2023 13:40-0400 Body height 162.56 cm Casandra Hassan Other [employer] Other 05-06-2023 13:40-0400 Body mass index (BMI) [Ratio] 53.65 kg/m2 Casandra Hassan Other [employer] Other 05-06-2023 13:40-0400 Body temperature 98.4 [degF] Casandra Hassan Other [employer] Other 05-06-2023 13:40-0400 Body weight 141.8 kg Casandra Hassan Other [employer] Other 05-06-2023 13:40-0400 Diastolic blood pressure 81 mm[Hg] Casandra Tesfayeley Other [employer] Other 05-06-2023 13:40-0400 Respiratory rate 18 /min Casandra Tesfayeley Other [employer] Other 05-06-2023 13:40-0400 SaO2% (BldA) [Mass fraction] 95 % Casandra Hassan Other [employer] Other 05-06-2023 13:40-0400 Systolic blood pressure 134 mm[Hg] Casandra Sonya Other [employer] Other 04-30-2023 08:30-0400 Body height 162.56 cm Manisha Marc Other [employer] Other 04-30-2023 08:30-0400 Body mass index (BMI) [Ratio] 53.86 kg/m2 Manisha Marc Other [employer] Other 04-30-2023 08:30-0400 Body weight 142.34 kg Manisha Marc Other [employer] Other 04-30-2023 08:30-0400 Diastolic blood pressure 82 mm[Hg] Manisha Marc Other [employer] Other 04-30-2023 08:30-0400 SaO2% (BldA) [Mass fraction] 100 % Manisha Marc Other [employer] Other 04-30-2023 08:30-0400 Systolic blood pressure 120 mm[Hg] Manisha Barclayeliudgareth Other [employer] Other 04-29-2023 07:00-0400 Body height 162.56 cm Nely [employer] Other [employer] Other 04-29-2023 07:00-0400 Body mass index (BMI) [Ratio] 54.41 kg/m2 Nely [employer] Other [employer] Other 04-29-2023 07:00-0400 Body weight 143.79 kg Nely SyCara [employer] Other [employer] Other 03-25-2023 13:45-0400 Body height 162.56 cm Celio [employer] Other [employer] Other 03-25-2023 13:45-0400 Body mass index (BMI) [Ratio] 55.45 kg/m2 [employer] Other [employer] Other 03-25-2023 13:45-0400 Body weight 146.56 kg [employer] Other [employer] Other 03-25-2023 13:45-0400 Diastolic blood pressure 57 mm[Hg] [employer] Other [employer] Other 03-25-2023 13:45-0400 Respiratory rate 18 /min [employer] Other [employer] Other 03-25-2023 13:45-0400 SaO2% (BldA) [Mass fraction] 97 % [employer] Other [employer] Other 03-25-2023 13:45-0400 Systolic blood pressure 106 mm[Hg] Celio Mullins Other [employer] Other 02-11-2023 12:15-0400 Body height 163.83 cm Casandra Hassan Other [employer] Other 02-11-2023 12:15-0400 Body mass index (BMI) [Ratio] 54.88 kg/m2 Casandra Hassan Other [employer] Other 02-11-2023 12:15-0400 Body temperature 98 [degF] Casandra Hassan Other [employer] Other 02-11-2023 12:15-0400 Body weight 147.33 kg Casandra Hassan Other [employer] Other 02-11-2023 12:15-0400 Diastolic blood pressure 85 mm[Hg] Casandra Hassan Other [facility] Other 02-11-2023 12:15-0400 Respiratory rate 18 /min Casandra Hassan Other [facility] Other 02-11-2023 12:15-0400 SaO2% (BldA) [Mass fraction] 98 % Casandra Hassan Other [facility] Other 02-11-2023 12:15-0400 Systolic blood pressure 128 mm[Hg] Casandra Hassan Other [facility] Other 07-13-2022 11:15-0500 Body height 163.83 cm Michelle Ernandez Other [facility] Other 07-13-2022 11:15-0500 Body mass index (BMI) [Ratio] 51.54 kg/m2 Michelle Oma Other [facility] Other 07-13-2022 11:15-0500 Body temperature 96.6 [degF] Michelle Oma Other [facility] Other 07-13-2022 11:15-0500 Body weight 138.35 kg Michelle Oma Other [facility] Other 07-13-2022 11:15-0500 Respiratory rate 18 /min Michelle Oma Other [facility] Other 07-13-2022 11:15-0500 SaO2% (BldA) [Mass fraction] 96 % Michelle Oma Other [facility] Other 07-06-2021 13:00-0500 Body height 163.83 cm Michelle Oma Other [facility] Other 07-06-2021 13:00-0500 Body mass index (BMI) [Ratio] 49 kg/m2 Michelle Oma Other [facility] Other 07-06-2021 13:00-0500 Body temperature 97.5 [degF] Michelle Oma Other [facility] Other 07-06-2021 13:00-0500 Body weight 131.54 kg Michelle Oma Other [facility] Other 07-06-2021 13:00-0500 SaO2% (BldA) [Mass fraction] 96 % Michelle Oma Other [facility] Other 06-17-2021 11:00-0400 Body height 163.83 cm Michelle Oma Other [facility] Other 06-17-2021 11:00-0400 Body mass index (BMI) [Ratio] 49.68 kg/m2 Michelle Oma Other [facility] Other 06-17-2021 11:00-0400 Body temperature 98.3 [degF] Michelle Oma Other [facility] Other 06-17-2021 11:00-0400 Body weight 133.36 kg Michelle Oma Other [facility] Other 06-17-2021 11:00-0400 Respiratory rate 18 /min Michelle Oma Other [facility] Other 06-17-2021 11:00-0400 SaO2% (BldA) [Mass fraction] 96 % Michelle Oma Other [facility] Other 05-31-2021 13:50-0400 Body height 163.83 cm Michelle Oma Other [facility] Other 05-31-2021 13:50-0400 Body mass index (BMI) [Ratio] 50.36 kg/m2 Michelle Oma Other [facility] Other 05-31-2021 13:50-0400 Body temperature 97.8 [degF] Michelle Oma Other [facility] Other 05-31-2021 13:50-0400 Body weight 135.17 kg Michelle Oma Other [facility] Other 05-31-2021 13:50-0400 Diastolic blood pressure 90 mm[Hg] Michelle Ernandez Other [facility] Other 05-31-2021 13:50-0400 Respiratory rate 18 /min Michelle Ernandez Other [facility] Other 05-31-2021 13:50-0400 SaO2% (BldA) [Mass fraction] 98 % Michelle Ernandez Other [facility] Other 05-31-2021 13:50-0400 Systolic blood pressure 150 mm[Hg] Michelle Ernandez Other [facility] Other Encounters Encounter Date Encounter Type Care Provider Facility Start: 04-03-2024 ambulatory Edward Richey acility:[facility] Start: 03-16-2024 End: 03-16-2024 ambulatory MELA ANDERSON Not Available Start: 01-19-2024 End: 01-19-2024 ambulatory Bud Combs MD Facility:[facility] Start: 01-01-2024 Registered Recurring ROSITA Marc Work Phone: [facility] Start: 11-26-2023 End: 11-26-2023 ambulatory ROSITA Marc Work Phone: [facility] Work Phone: Start: 11-26-2023 End: 11-26-2023 Patient encounter procedure ROSITA Marc Work Phone: [facility] Work Phone: Start: 11-03-2023 End: 11-03-2023 ambulatory ROSITA Marc Work Phone: [facility] Work Phone: Start: 11-03-2023 End: 11-03-2023 Patient encounter procedure ROSITA Marc Work Phone: [facility] Work Phone: Start: 11-03-2023 End: 11-03-2023 ambulatory TOBIAS OSCAR Not Available Start: 10-30-2023 Non-patient / Non-visit FUNERAL HOME MANAGERJosé Miguel Marc Work Phone: [facility] Work Phone: Start: 10-08-2023 End: 10-08-2023 Patient encounter procedure ROSITA Marc Work Phone: [facility] [place] Work Phone: Start: 10-08-2023 End: 10-08-2023 ambulatory ROSITA Marc Work Phone: [facility] Work Phone: Start: 10-06-2023 Non-patient / Non-visit ROSITA Marc Work Phone: [facility] Work Phone: Start: 10-06-2023 End: 10-06-2023 ambulatory Bud Combs MD Facility: [facility] Start: 10-01-2023 End: 10-01-2023 Patient encounter procedure ROSITA Marc Work Phone: [facility] Work Phone: Start: 10-01-2023 End: 10-01-2023 ambulatory ROSITA Marc Work Phone: [facility] Work Phone: Start: 09-10-2023 Registered Recurring ROSITA Marc Work Phone: [facility] Start: 09-08-2023 End: 09-08-2023 ambulatory Bud Combs MD Facility:[facility] Start: 09-03-2023 End: 09-03-2023 Patient encounter procedure ROSITA Marc Work Phone: [facility]- Start: 08-19-2023 IBT FOR OBESITY GROU P 2-10 30M Nely Cruz [facility] Start: 08-19-2023 End: 08-19-[address] [facility] Other Start: 08-19-2023 Registered Recurring ROSITA Marc Work Phone: [facility] Work Phone: Start: 08-19-2023 End: 08-19-2023 Patient encounter procedure ROSITA Marc Work Phone: [facility] Work Phone: Start: 08-14-2023 Registered Recurring ROSITA Marc Work Phone: [facility] Start: 08-13-2023 End: 08-13-2023 ambulatory Manisha Marc Other [facility] Other Start: 08-13-2023 Office outpatient visit 15 minutes Manisha Marc [facility] Start: 08-13-2023 End: 08-13-2023 Patient encounter procedure ROSITA Marc Work Phone: [facility] Work Phone: Start: 07-24-2023 End: 07-24-2023 ambulatory MELA ANDERSON Not Available Start: 07-21-2023 End: 07-21-2023 ambulatory Bud Combs MD Facility: [facility] Start: 07-19-2023 End: 07-19-2023 ambulatory FUNERAL HOME MANAGERJosé Miguel Marc Work Phone: [facility] Work Phone: Start: 07-19-2023 End: 07-19-2023 Patient encounter procedure ROSITA Marc Work Phone: [facility] [facility] Start: 07-15-2023 End: 07-15-2023 ambulatory Celio Mullins Other [facility] Other Start: 07-15-2023 Follow-up encounter Celio Mullins [facility] Start: 07-15-2023 End: 07-15-2023 Patient encounter procedure FUNERAL HOME MANAGERJosé Miguel Marc Work Phone: [facility] Work Phone: Start: 07-07-2023 End: 07-07-2023 ambulatory Michelle Ernandez Other [facility] Other Start: 07-07-2023 Office outpatient visit 15 minutes Michelle Ernandez [facility] Start: 07-07-2023 End: 07-07-2023 Patient encounter procedure ROSITA Marc Work Phone: [facility] Work Phone: Start: 07-03-2023 Registered Recurring ROSITA Marc Work Phone: [facility] Start: 07-03-2023 End: 07-03-2023 Patient encounter procedure ROSITA Marc Work Phone: [facility] [place] Work Phone: Start: 07-03-2023 End: 07-03-2023 ambulatory ROSITA Marc Work Phone: [facility] Work Phone: Start: 07-01-2023 End: 07-01-2023 Patient encounter procedure FUNERAL HOME MANAGER Manisha Marc Work Phone: [facility] [place] Work Phone: Start: 07-01-2023 End: 07-01-2023 ambulatory Manisha Marc Facility:[facility] Start: 06-29-2023 End: 06-29-2023 ambulatory Michelle Oma Other [facility] Other Start: 06-29-2023 Office outpatient visit 15 minutes Michelle Ernandez [facility] Start: 06-17-2023 Registered Recurring FUNERAL HOME MANAGER Layla Marc Work Phone: [facility] Work Phone: Start: 06-11-2023 End: 06-11-2023 ambulatory Manisha Marc Other [facility] Other Start: 06-11-2023 Office outpatient visit 25 minutes Manisha Marc [facility] Start: 05-06-2023 End: 05-06-2023 ambulatory Casandra Hassan Other [facility] Other Start: 05-06-2023 Office outpatient visit 10 minutes Casandra Hassan [facility] Start: 05-01-2023 End: 05-01-2023 ambulatory Manisha Marc Other [facility] Other Start: 05-01-2023 Telephone encounter Manisha Rico her [facility] Start: 04-30-2023 End: 04-30-2023 ambulatory Manisha Marc Other [facility] Other Start: 04-30-2023 Encounter for genera l adult medical examination without abnormal findings Manisha Tari [facility] Start: 04-30-2023 Periodic preventive med est patient 18-39 yrs Manisha Tari [facility] Start: 04-29-2023 ([facility]) [facility] Initial Provider Nely Cruz [facility] Start: 04-29-2023 End: 04-29-2023 ambulatory Nely Cruz Other [facility] Other Start: 03-25-2023 End: 03-25-2023 ambulatory Celiomary Mullins Other [facility] Other Start: 03-25-2023 Nutrition therapy Celio Harpreet [facility] Start: 03-25-2023 Telephone encounter Celio Mullins [facility] Start: 03-14-2023 End: 03-14-2023 ambulatory Nely Cruz Other [facility] Other Start: 03-14-2023 Telephone encounter Nely Cruz [facility] Start: 02-11-2023 End: 02-11-2023 ambulatory Casandra Hassan Other [facility] Other Start: 02-11-2023 Office outpatient visit 15 minutes Casandra Hassan [facility] Start: 12-31-2022 End: 01-01-[address] TOBIAS OSCAR . Facility:[facility] Start: 11-26-2022 End: 11-27-[address] TOBIAS OSCAR . Facility:[facility] Start: 11-08-2022 End: 11-09-[address] THADDEUS ROD Facility:[facility] Start: 10-28-2022 End: 10-28-[address] TOBIAS OSCAR . Facility:[facility] Start: 07-13-2022 End: 07-13-2022 ambulatory Michelle Ernandez Other [facility] Other Start: 07-13-2022 Office outpatient visit 15 minutes Michelle Oma [facility] Start: 03-07-2022 End: 03-08-[address] THADDEUS ROD Facility:[facility] Start: 01-25-2022 Encounter for genera l adult medical examination without abnormal findings DR THADDEUS ROD [facility] Start: 01-21-2022 End: 01-22-[address] THADDEUS ROD Facility:[facility] Start: 01-21-2022 End: 01-22-2022 Encounter for general adult medical examination without abnormal findings DR THADDEUS ROD Facility:[facility] Start: 07-06-2021 End: 07-06-2021 ambulatory Michelle Oma Other [facility] Other Start: 07-06-2021 Office outpatient visit 15 minutes Michelle Oma [facility] Start: 06-17-2021 Office outpatient visit 15 minutes Michelle Oma [facility] Start: 05-31-2021 Office outpatient visit 25 minutes Michelle Oma [facility] Start: 08-27-2018 End: 08-27-2018 ambulatory BRENT KINNEY Facility:[facility] Procedures Date Procedure Procedure Detail Performing Clinician [...] lic 2000 panel - Serum or Plasma [facility] enter Holter monitor study [facility] Immunizations Immunization Date Immunization Notes Care Provider Lillie rogers 03-03-2021 Do not use COVID-19 Pfizer 2 dose Manisha Marc Other [facility] 02-10-2021 Do not use COVID-19 Pfizer 2 dose Manisha Tari Other [facility] 08-03-2018 Toradol per 15 mg Michelle Sofia ond Other [facility] Other Payers Date Payer Category Payer Self-pay [id number] 2022 Self-pay [id number] 2022 Private Health Insurance 1991 Unknown [id number] [id number]. 732 1991 Unknown [id number] 2.16.840.1.180818.3.579.2. 593 1991 Unknown [id number] 2.16.840.1.452559.3.579.2. 593 1991 Unknown [id number] 2.16.840.1.795952.3.579.2. 593 1991 Unknown [id number] 2.16.840.1.259208.3.579.2. 593 1991 Unknown [id number] 2.16.840.1.027215.3.579.2. 593 1991 Unknown [id number] 2.16.840.1.179535.3.579.2. 593 1991 Unknown [id number] 2.16.840.1.208290.3.579.2. 196 1991 Unknown [id number] 2.16.840.1.284866.3.579.2. 196 1991 Unknown [id number] 2.16.840.1.632505.3.579.2. 196 1991 Unknown [id number] 2.16.840.1.545310.3.579.2. 196 1991 Unknown [id number] 2.16.840.1.605643.3.579.2. 1259 1991 Unknown [id number] 2.16.840.1.665940.3.579.2. 1259 1991 Unknown [id number] 2.16.840.1.755934.3.579.2. 1259 1959 Medicaid [id number] 1959 Unknown [id number] Unknown [place] [id number] Unknown [id number] 2.16.840.1.869715.3.579.2. 531 Unknown [id number] 2.16.840.1.881959.3.579.2. 531 Unknown [id number] 2.16.840.1.552676.3.579.2. 531 Unknown [id number] 2.16.840.1.861038.3.579.2. 531 Unknown [id number] 2.16.840.1.375770.3.579.2. 531 Unknown [id number] 2.16.840.1.399083.3.579.2. 531 Unknown [id number] 2.16.840.1.038444.3.579.2. 531 Social History Date Type Detail Facility Unknown if ever smoked [facility] Other Sex Assigned At Sex Assigned At Bir th [facility] Other Start: 12-07-2021 End: 11-26-2023 Tobacco smoking status UTIS Never smoked tobacco (finding) [facility] Start: 1990 Sex Assigned At Female F [facility] Clinical Notes 05-31-2021 to 08-19-2023 Note [...] (D) Plate method for meal planning ; opinions.[employer] [facility] Other 12-27-2023 Evaluation note* Encounter Date Diagnosis [...] You have been given relevant education handouts. [facility] Other 11-28-2023 Evaluation note* Encounter Date Diagnosis [...] voice recognition software. Please excuse errors in storeperson. Jun, Dietary surveillance and counseling (ICD-10 - [...] metformin 1000 mg total daily, managed by RESCUE INSTRUCTOR Jun, Asthma (ICD-10 - J45.909) Jun, Migraine (ICD-10 - G43.909) Jun, Primary hypertension (ICD-10 - I10) Currently on pharmacotherapy Potential for overtreatment given lightheadedness Jun, Other An additional 9 minutes was spent counseling the patient on behavior modification including proper nutrition and physical activity. [facility] Other 11-20-2023 Evaluation note* Encounter Date Diagnosis [...] until you feel better. You may take [id number] Imodium for diarrhea as needed. Avoid dairy foods as well as greasy fried foods. Follow-up with your physician if no improvement in 2 to 3 days. May return to work on Jun, Diarrhea, unspecified type (ICD-10 - R19.7) Diarrhea: adult home care material was printed [facility] Other 11-12-2023 Evaluation note* Encounter Date Diagnosis [...] to 3-day Jun, Bronchitis (ICD-10 - J40) [facility] Other 10-25-2023 Evaluation note* Encounter Date Diagnosis Assessment Notes Treatment Notes Treatment Clinical Notes May, Degenerative lumbar disc (ICD-10 - M51.36) L4-5 Pt would like a referral to pain management regarding her chronic back pain. Her last x-ray of the lumbar spine was completed 10/2022 at [facility]--reviewed and in scanned documents. Referral placed. May, [...] (ICD-10 - F31.81) Referral placed to [facility] for medication mangement. [facility] Other 09-19-2023 Evaluation note* Encounter Date Diagnosis Assessment Notes Treatment Notes Treatment Clinical Notes Apr, Exposure to head lice (ICD-10 - Z20.7) Discussed with patient exam is without any signs of current lice infection. May return to work tomorrow. Patient completed next treatment yesterday. Patient verbalized understanding. [facility] Other 09-14-2023 Evaluation note* Encounter Date Diagnosis Assessment Notes Treatment Notes Treatment Clinical Notes Apr, Primary hypertension (ICD-10 - I10) [facility] Other 09-13-2023 Evaluation note* Encounter Date Diagnosis [...] (ICD-10 - R73.01) Will obtain records from [facility] for most recent labs. Patient is [...] Low back pain, unspecified (ICD-10 - M54.50) [facility] Other 09-12-2023 Evaluation note* Encounter Date Diagnosis [...] 2) Aim for < 45 g carb/meal [facility] Other 08-08-2023 Evaluation note* Encounter Date Diagnosis [...] voice recognition software. Please excuse errors in storeperson. Mar, Dietary surveillance and counseling (ICD-10 - [...] as sweet tea, replace ice cream with Albanian yogurt, use protein shake in the a.m. [...] with the patient, and documenting clinical information. [facility] Other 06-27-2023 Evaluation note* Encounter Date Diagnosis [...] 7 days, sooner if significantly worsening symptoms. [facility] Other 11-26-2022 Evaluation note* Encounter Date Diagnosis [...] 3 days. Off work today and tomorrow [facility] Other 11-19-2021 Evaluation note* Encounter Date Diagnosis [...] Patient care instructions given in writting by [facility] document. [facility] Other 10-31-2021 Evaluation note* Encounter Date Diagnosis [...] Patient care instructions given in writting by [facility] document. [facility] Other 10-14-2021 Evaluation note* Encounter Date Diagnosis Assessment Notes Treatment Notes Treatment Clinical Notes May, Dysuria (ICD-10 - R30.0) May, Urinary tract infection, site not specified (ICD-10 - N39.0) May, Hematuria, unspecified (ICD-10 - R31.9) [facility] Other Evaluation noteNo InformationNort Jobster Other evaluation noteNo assessment information available [facility] Work Phone: Evaluation note* Diagnosis Onset Date Resolution Status Dietary surveillance and counseling acute Exercise counseling acute Food insecurity acute PCOS (polycystic ovarian syndrome) acute Prediabetes acute Severe obesity (BMI >= 40) a melvin [facility] Work Phone: Evaluation note* Diagnosis Onset Date Resolution Status Dietary surveillance and counseling acute Exercise counseling acute Food insecurity acute PCOS (polycystic ovarian syndrome) acute Prediabetes acute Severe obesity (BMI >= 40) a cute Lightheadedness acute Menorrhagia acute Palpitations acute [facility] Work Phone: evaluation note* Diagnosis Onset Date Resolution Status Dietary surveillance and counseling acute Exercise counseling acute Food insecurity acute PCOS (polycystic ovarian syndrome) acute Prediabetes acute Severe obesity (BMI >= 40) a cute Lightheadedness acute Menorrhagia acute Palpitations acute Dietary surveillance and counseling acute Exercise counseling acute Severe obesity (BMI >= 40) a [facility] Work Phone: evaluation note* Diagnosis Onset Date Resolution Status Lightheadedness acute Menorrhagia acute Palpitations acute Dietary surveillance and counseling acute Exercise counseling acute Severe obesity (BMI >= 40) a [facility] Work Phone: history general [...] Pneumonia Hospitalization History Hospitalized for blood l Thrive Solo 2010 [facility] Other history general Narrative - Reported* Type [...] History Hospitalized for blood l oss 2010 [facility] Other history general Narrative - Reported* Type [...] History Hospitalized for blood l oss 2010 [facility] Other history general Narrative - Reported* Type [...] History Hospitalized for blood l oss 2010 [facility] Other history general Narrative - Reported* Type [...] History Hospitalized for blood l oss 2010 [facility] Other history general Narrative - Reported* Type [...] History Hospitalized for blood l oss 2010 [facility] Other history general Narrative - Reported* Type [...] History Hospitalized for blood l oss 2010 [facility] Other Reason for referral (narrative)* Reason *FU 06/20 would sherif groves a referral to pscyiatrist -- was recently diagnosed with bipolar and would like medication management. Diagnosis 1 Bipolar 2 disorder ( F31.81) Referral Organization [facility] Mobile sharan Referring Provider First Name Manisha Referring Provider Last Name Rohrbacher Referring Provider Specialty Nurse Pract itioner Referred Organization [facility] Referred Address [address] ,[place], [place],[address] Referred Provider Specialty Psychiatry Referral Priority Routine General Notes Paola Henderson 01:25:30 PM >received today, not sure if [facility] does medication management, waiting for notes to be locked Paola Henderson 06/13/2023 10:34:39 AM >notes locked, referral faxed Clinical Notes p: [phone] f: [id number] [facility] Reason *06/20 would sherif groves a referral to pain management for other options for pain control for back pain Diagnosis 1 Degenerative lumbar disc (M51.36) Referral Organization [facility] [employer] sharan Referring Provider First Name Manisha Referring Provider Last Name Rohrbacher Referring Provider Specialty Nurse Pract itioner Referred Organization [facility] Referred Provider Yrn Parsons Referred Address [address] [place], [place],[address] Referred Provider Specialty Pain Medicin e Referral Priority Routine General Notes Paola Henderson 01:21:23 PM >received today, waiting for notes to be locked Paola Henderson 06/13/2023 10:25:26 AM >notes locked, referral faxed Clinical Notes f: [phone] [facility] Other Summary Purpose Family History No Family [...] and content) DATE CREATED AUTHOR 08/27/2021 [facility] [employer] [facility] DATE CREATED AUTHOR AUTHOR'S ORGANIZ ATION 01/01/2023 [facility] DATE CREATED AUTHOR AUTHOR'S ORGANIZ ATION 01/30/2024 [facility] DATE CREATED AUTHOR AUTHOR'S ORGANIZ ATION 03/18/2024 [facility] DATE CREATED AUTHOR AUTHOR'S ORGANIZ ATION 04/08/2024 [facility] REASON FOR VISIT (unrecogniz [...] Member Role Status Dates Manisha Marc APRN VIDEO GAME PRODUCER-C Primary Care Provider Active Team Status: Active Member Role Status Dates Manisha Marc APRN VIDEO GAME PRODUCER-C Primary Care Provider, Attending Provider Active Team Status: Inactive Member Role Status Dates Manisha Marc APRN VIDEO GAME PRODUCER-C Primary Care Provider Active Celio Mullins DO Attending Provider Active Team Status: Inactive Member Role Status Dates Manisha Marc APRN VIDEO GAME PRODUCER-C Primary Care Provider Active Clinton Frazier MD Attending Provider Active Team Status: Inactive Member Role Status Dates Manisha Marc APRN VIDEO GAME PRODUCER-C Primary Care Provider Active Start: July 032022 End: July 03, 2023 Celio Mullins DO Attending Provider Active St art: July 03, 2023 End: July 03, 2023 Team Status: Active Member Role Status Dates Manisha Marc APRN VIDEO GAME PRODUCER-C Primary Care Provider Active Start: July 032022 [...] Member Role Status Dates Manisha Marc APRN VIDEO GAME PRODUCER-C Primary Care Provider Active Start: July End: July 19, 2023 Clinton Frazier MD Attending Provider Active Start: July 19, 2023 End: July 19, 2023 Team Status: Inactive Member Role Status Dates Manisha Marc APRN VIDEO GAME PRODUCER-C Attending Provider Act rafal Start: August 13, 2023 End: August 13, 2023 Team Status: Inactive Member Role Status Dates Nely Cage [facility] Attending Provider Active Start: August 19, 2023 End: August 19, 2023 Team Status: Active Member Role Status Dates Manisha Marc APRN VIDEO GAME PRODUCER-C Primary Care Provider, Attending Provider Active Start: August 19, 2023 Team Status: Inactive Member Role Status Dates Manisha Marc APRN VIDEO GAME PRODUCER-C Attending Provider Act rafal Start: September 03, 2023 End: September 03, 2023 Team Status: Inactive Member Role Status Dates Manisha Marc APRN VIDEO GAME PRODUCER-C Primary Care Provider Active Start: October 012023 End: October 01, 2023 Celio Mullins DO Attending Provider Active St art: October 01, 2023 End: October 01, 2023 Team Status: Active Member Role Status Dates Manisha Marc APRN VIDEO GAME PRODUCER-C Primary Care Provider Active Start: August 142022 Edward Gilmore MD Attending Provider Active Start: August 14, 2023 Team Status: Active Member Role Status Dates Manisha Marc APRN VIDEO GAME PRODUCER-C Primary Care Provider, Attending Provider Active Start: October 06, 2023 Team Status: Inactive Member Role Status Dates Manisha Marc APRN VIDEO GAME PRODUCER-C Primary Care Provider Active Start: October 082023 End: October 08, 2023 Akil Cox DO Attending Provider Active Start: October 08, 2023 End: October 08, 2023 Team Status: Active Member Role Status Dates Manisha Marc APRN VIDEO GAME PRODUCER-C Primary Care Provider, Attending Provider Active Start: October 30, 2023 Team Status: Inactive Member Role Status Dates Manisha Marc APRN VIDEO GAME PRODUCER-C Primary Care Provider, Attending Provider Active Start: November 03, 2023 End: November 03, 2023 Team Status: Active Member Role Status Dates Manisha Marc APRN [employer] PRODUCER-C Primary Care Provider Active Start: August Edward Gilmore MD Attending Provider Active Start: September 10, 2023 Team Status: Inactive Member Role Status Dates Manisha Marc APRN [employer] PROD[employer]ER-C Primary Care Provider Active Start: November 26, 2023 End: November 26, 2023 Celio Mullins DO Attending Provider Active St art: November 26, 2023 End: November 26, 2023 Team Status: Active Member Role Status Dates Manisha Marc APRN [employer] PRODUCER-C Primary Care Provider Active Start: January 01, [...] BE BASED ON THE PRIMARY CLINICAL RECORDS. [employer] provides no warranty or guarantee of the accuracy or completeness of information in this document.
== END 2024-04-21 10:28 | disposition home or self-care (01) ==
LOC: PM 10:27
PROVIDERS: PCP Nurse Practitioner Family; Visit Provider Nurse Practitioner
DX: R47.01 Aphasia (principal); R41.3 Other amnesia; Z87.898 Personal history of other specified conditions; G43.909 Migraine, unspecified, not intractable, without status migrainosus; E61.1 Iron deficiency; M51.36 Other intervertebral disc degeneration, lumbar region; M70.60 Trochanteric bursitis, unspecified hip; M79.18 Myalgia, other site; M47.816 Spondylosis without myelopathy or radiculopathy, lumbar region; M54.16 Radiculopathy, lumbar region
CPT/HCPCS: 36415; 82607; 83540; 83550; 84443; G0463

== ENCOUNTER 2024-04-21 15:19 | Outpatient (OUT) | payer OTHER, SELFPAY ==
[2024-04-21 16:11] LABS: Percent Iron Saturation 15.4 %
[2024-04-21 16:12] LABS: TSH W/ REFLEX FT4 2.211 uIU/mL (0.358-3.740)
[2024-04-22 13:08] LABS: Vitamin B12 815 pg/mL (232-1245)
== END 2024-04-21 15:20 | disposition home or self-care (01) ==
LOC: LAB 15:20
PROVIDERS: PCP Nurse Practitioner Family; Visit Provider Nurse Practitioner Family
DX: R47.01 Aphasia (principal); Z87.898 Personal history of other specified conditions; R41.3 Other amnesia; G43.909 Migraine, unspecified, not intractable, without status migrainosus; E61.1 Iron deficiency
CPT/HCPCS: 36415; 82607; 83540; 83550; 84443

== ENCOUNTER 2024-05-10 13:48 | Outpatient (RCR) | payer OTHER, SELFPAY | END 2024-06-10 15:49 | disposition home or self-care (01) | LOC: PT 13:48 | PROVIDERS: PCP Nurse Practitioner Family; Visit Provider Nurse Practitioner | DX: M54.16 Radiculopathy, lumbar region (principal) | CPT/HCPCS: 97110; 97112; 97113; 97161 ==

== ENCOUNTER 2024-05-26 08:36 | Outpatient (OUT) | payer OTHER, SELFPAY ==
--- NOTE | 2024-05-26 08:39 | MR_ITS ---
The [address] [address] Patient Name: DIMITRY PACK MRN: [id number] date: 1990 Sex: F Assigned Patient Location: SLEEP Current Patient Location: Accession/Order Number: [id number] Exam Date: 05/26/2024 08:50 Report Date: 05/27/2024 06:32 At the request of: CHRIS LOPEZ Procedure: MR head/brain wo/w con EXAMINATION: MR head/brain wo/w con HISTORY: Amnesia, History Of Seizure, Migraine, Aphasia COMPARISON: CT head without contrast 12/09/2020 TECHNIQUE: A variety of imaging planes and parameters were utilized for visualization of suspected pathology. Images were performed without and with Dotarem contrast. FINDINGS: CEREBRUM: No edema, hemorrhage, mass, acute infarction, or inappropriate atrophy. CEREBELLUM: No edema, hemorrhage, mass, acute infarction, or inappropriate atrophy. BRAINSTEM: No edema, hemorrhage, mass, acute infarction, or inappropriate atrophy. CSF SPACES: Ventricles, cisterns, and sulci are appropriate for age. No hydrocephalus, subarachnoid hemorrhage, or mass. SKULL: No mass or other significant visible lesion. SINUSES: Limited views demonstrate no significant mucosal thickening or fluid. ORBITS: Limited views are unremarkable. OTHER: No abnormal meningeal or parenchymal enhancement. MR/MR head/brain wo/w con IMPRESSION: 1. No abnormal or suspicious findings to account for patient's symptoms. Electronically authenticated by: SUGEY MACDONALD Date: 05/27/2024 06:32
--- OUTSIDE RECORDS SUMMARY | 2024-05-26 08:41 | XMS_ITS | CCD ---
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 Name Role Phone BRENT KINNEY Referring Unavailable BRENT KINNEY Attending Unavailable BRENT KINNEY Admitting Unavailable Michelle Ernandez Unavailable VIOLA, DR NUR Consulting Unavailable BLOOMFIELD, DR NUR Admitting Unavailable HOUSE, DR NUR [...] Nely Cruz Unavailable Celio Mullins Unavailable Manisha Mrac Unavailable [phone] ROSITA Marc Primary Care Provider ROSITA Marc Attending Provider DO Celio Mullins Attending Provider ROSITA Marc Primary Care Provider MD Clinton Frazier Attending Provider ROSITA Marc Attending Provider [phone] ROSITA Marc Primary Care Provider DO Celio Mullins Attending Provider MD Edward Gilmore Attending Provider MD Clinton Frazier Attending Provider ROSITA Marc Primary Care Provider MD Edward Gilmore Attending Provider [phone] DO Akil Cox Attending Provider ROSITA Marc Primary Care Provider MD Edward Gilmore Attending Provider ROSITA Marc Attending Provider DO Akil Cox Attending Provider [phone] ROSITA Marc Primary Care Provider MD Edward Gilmore Attending Provider [phone] ROSITA Marc Primary Care Provider MD Edward Gilmore Attending Provider Garret CROWLEY, Andrius Vytautcortez Attending Unavailable Garret CROWLEY, Andrius Vytautas Attending Unavailable Garret CROWLEY, Andrius Vytautas Attending Unavailable Garret CROWLEY, Andrius Vytautas Attending Unavailable TOBIAS OSCAR Attending Unavailable MELA ANDERSON Attending Unavailable MELA ANDERSON Attending Unavailable ROSITA Marc Primary Care Provider MD Edward Gilmore Attending Provider [phone] Manisha Marc Attending Unavailable Rohrbacher, Manisha Admitting Unavailable Rohrbacher, Manisha Primary Care Unavailable Edward Gilmore Admitting Unavailab le Edward Gilmore Attending Unavailab le Denyrbacher, Manisha Primary Care Unavailable Celio Mullins M Admitting Unavailable Celio Mullins M Attending Unavailable Denyrbacher, Manisha Primary Care Unavailable Clinton Frazier Admitting Unavailable Clinton Frazier Attending Unavailable Rohrbacher, Manisha Primary Care Unavailable Rohrbacher, Manisha Primary Care Unavailable Harpreet, Celio M Admitting Unavailable Harpreet Celio M Attending Unavailable Ivon Mullinsten M Admitting Unavailable Ivon Mullinsten M Attending Unavailable Denyrbacher, [facility] Care Unavailable Akil Cox Attending Unavailab Akil Avila Admitting Unavailab le Denyrbacher, [facility] Unavailable Allergies Allergy Classification Reported Allergen(s) Allergy Type Date of Onset Reaction(s) Facility (20 sources) Amoxicillin; Translations: [AMOXICILLIN] Drug Allergy 07-08-20 16 rash [facility] Repository (10 sources) Cefaclor; Translations: [CEFACLOR] Drug Allergy 04-14-20 15 Unknown Reaction, [facility] Repository (19 sources) Erythromycin; Translations: [ERYTHROMYCIN] Drug Allergy 04-14-[address] [facility] Repository (19 sources) Cefaclor; Translations: [Ceclor] Drug Allergy 04-17-20 15 [facility] Repository (9 sources) Erythromycin Drug Allergy 04-17-20 15 Unknown Reaction, [facility] Repository (9 sources) Cephalosporins (Antibiotic); Translations: [Cephalosporins] Allergy to substance 12-10-19 22 Unknown Reaction, Rash [facility] (3 sources) Lactulose; Translations: [lactulose] Drug Allergy 02-12-20 20 Unknown Reaction [facility] (1 source) Erythromycin Drug Allergy 04-21-20 24 [facility] Repository Medications Current Medications Medication Drug Class(es) Dates Sig (Normalized) Sig (Original) [id number] 200 actuat albuterol 0.09 mg/actuat metered dose [...] and Norepinephrine Reuptake Inhibitor Start: 11-26-19 24 End: 04-05-20 24 take 120 mg by mouth once daily Duloxetine Active 120 MG PO Daily 180 90 April 05, 2024 1:28pm Start: 10-01-2023 End: 10-01-2023 take 2 capsules [...] Discontinued 90 MG PO Daily at bedtime 90 February 17, 2020 12:00am November 26, 2023 8:33am take 2 capsules by m outh every twenty-four hours Cymbalta 60 MG 2 capsule Orally Once a day for 90 days Active Cymbalta Active gabapentin 300 mg oral capsule (20 sources) Anti-epileptic Agent Start: 02-12-2020 End: 10-01-2023 take 1 capsule by mouth three times daily as needed Gabapentin Active 300 MG PO Three times daily October 01, 2023 1:00am [employer] capsule Orally Once a day PRN; Note: Source Status: RefillPRN; Refills: 0; Provider: Tari Garnett take 1 capsule by mo ut once daily as needed Gabapentin 300 MG 1 capsule Orally Once a day PRN for 30 days PRN Active lamoTRIgine 25 mg oral tablet (6 sources) Mood Stabilizer, Anti-epileptic Agent Start: 10-01-2023 take 25 mg by mouth twice daily Lamotrigine Active 25 MG PO Twice daily October 01, 2023 1:00am lisinopril 10 mg oral tablet (20 sources) Angiotensin Converting Enzyme Inhibitor Start: 11-26-2023 End: 04-05-2024 take 10 mg by mouth once daily Lisinopril Active 10 MG PO Daily April 05, 2024 1:28pm Start: 10-01-2023 End: 11-26-2023 take 10 mg [...] & Diet Manage Prod Active Multivitamin preparation (20 sources) Start: 12-07-2021 take 1 tablet by [...] a day for 2 day(s) May, Active Completed/Discontinued Medications Medication Drug Class(es) Dates Sig (Normalized) Sig (Original) ARIPiprazole 5 mg oral tablet (10 sources) Atypical Antipsychotic Start: 03-05-2020 End: 12-07-2021 take 5 mg by mouth once daily Aripiprazole Discontinued 5 MG PO Daily March 05, 2020 12:00am December 07, 2021 10:45am Savanna Masterson-Cate Corrales Active 24 hr buPROPion hydrochloride 150 mg extended release oral tablet (8 sources) Aminoketone Start: 02-12-2020 End: 02-17-2020 take 150 mg by mouth once daily Bupropion Hcl Discontinued 150 MG PO Daily February 12, 2020 12:00am February 17, 2020 11:57am citalopram 40 mg oral tablet (16 sources) Serotonin Reuptake Inhibitor Start: 02-12-2020 End: 02-17-2020 take 40 mg by mouth once daily Citalopram Discontinued 40 MG PO Daily February 12, 2020 12:00am February 17, 2020 11:57am Start: 02-12-2020 End: 02-12-2020 Citalopram Discontinued MG T ABLET February 12, 2020 12:00am February 12, 2020 8:18pm ferrous sulfate 325 mg oral tablet (3 sources) Start: 11-04-2023 End: 04-21-2024 take 325 mg by mouth once daily Ferrous Sulfate Discontinued 325 MG PO Daily November 04, 2023 12:00am April 21, 2024 2:37pm fluticasone propionate 0.05 mg/actuat metered dose nasal spray (9 sources) Corticosteroid Start: 10-01-2023 End: 11-26-2023 Fluticasone [...] succinate 50 mg extended release oral tablet (8 sources) beta-Adrenergic Ann Start: 02-12-2020 End: 12-07-2021 take 50 mg by mouth once daily Metoprolol Succinate Discontinued 50 MG PO Daily February 12, 2020 12:00am December 07, 2021 10:46am niacin 500 mg oral tablet (3 sources) Nicotinic Acid Start: 11-26-2023 End: 04-21-2024 Niacin (Inositol Niacinate) Discontinued TAB PO November 26, 2023 12:00am April 21, 2024 2:37pm predniSONE 20 mg oral tablet (5 sources) Start: 06-29-2023 take 1 tablet by mouth every twelve hours predniSONE 20 MG 1 tablet Orally bid for 5 day(s) Jun, Not-Taking Start: 06-17-2021 take 1 tablet by miranda every twelve hours predniSONE 20 MG 1 tablet Orally bid for 5 day(s) May, Active ubidecarenone 200 mg oral capsule (3 sources) Start: 11-26-2023 End: 04-21-2024 Coenzyme Q10 Discontinued 200 MG PO Daily November 26, 2023 12:00am April 21, 2024 2:36pm valACYclovir 1000 mg oral tablet (20 sources) Herpesvirus Nucleoside Analog DNA Polymerase Inhibitor, Herpes Simplex Virus Nucleoside Analog DNA Polymerase Inhibitor, Herpes Zoster Virus Nucleoside Analog DNA Polymerase Inhibitor Start: 02-12-2020 End: 01-08-2024 Valacyclovir (Valtrex) 1 gram tablet Discontinued 1000 MG PO Daily October 01, 2023 10:15am January 08, 2024 11:49am Start: 02-12-2020 End: 02-12-2020 take 1 mg [...] 1 tablet Orally Once a day Not-Taking Problems Active Problems Problem Classification Problem Date Documented Da te Episodic/Chronic Anxiety disorders (14 sources) Anxiety; Translations: [Anxiety disorder, unspecified] Chronic Asthma (20 sources) Exacerbation of intermittent asthma; Translations: [Mild intermittent asthma with (acute) exacerbation] Chronic Cardiac dysrhythmias (7 sources) Palpitations; Translations: [Palpitations] 11-03-2023 Episodic Chronic obstructive pulmonary disease and bronchiectasis (5 sources) Acute exacerbation of chronic bronchitis; Translations: [Bronchitis, chronic with acute exacerbation] Chronic Chronic obstructive pulmonary disease and bronchiectasis (1 source) Bronchitis, not specified as acute or chronic Episodic Conditions associated with dizziness or vertigo (7 sources) Lightheadedness; Translations: [Dizziness and giddiness] 11-03-2023 Episodic Epilepsy; convulsions (11 sources) Seizure disorder; Translations: [Epilepsy, unspecified, not intractable, without status epilepticus] Onset: 10-08-2023 Chronic Essential hypertension (19 sources) Essential hypertension; Translations: [Essential (primary) hypertension] Onset: 07-01-2023 Chronic Headache; including migraine (20 sources) Refractory migraine without aura; Translations: [Migraine without aura, intractable, without status migrainosus] Chronic Immunizations and screening for infectious disease (7 sources) Contact with and (suspected) exposure to other viral communicable diseases; Translations: [Encounter for screening for human papillomavirus (HPV)] Onset: 06-17-2021 Resolved: 07-06-2021 Episodic Menstrual disorders (16 sources) Amenorrhea; Translations: [Amenorrhea, unspecified] Onset: 03-07-2022 Chronic Mood disorders (20 sources) Recurrent major depression in partial remission; Translations: [Major depressive disorder, recurrent, in partial remission] Chronic Nausea and vomiting (1 source) Nausea with vomiting, unspecified Episodic Nutritional deficiencies (3 sources) Iron deficiency; Translations: [Iron deficiency] 11-04-2023 Episodic Other endocrine disorders (19 sources) Polycystic ovary syndrome; Translations: [Polycystic ovarian [...] chronic pain Chronic Other nervous system disorders (1 source) Aphasia; Translations: [Aphasia] 04-21-2024 Chronic Other nervous system disorders (1 source) Neuropathy; Translations: [Polyneuropathy, unspecified] 04-12-2024 Chronic Other nervous system disorders (1 source) Aphasia; Translations: [Aphasia] 04-21-2024 Chronic Other nervous system disorders (7 sources) Paresthesia of skin; Translations: [Paresthesia of both hands] Episodic Other nutritional; endocrine; and metabolic disorders (13 sources) Body mass index 30+ - obesity; Translations: [Body mass index (BMI) 33.0-33.9, adult] Chronic Other nutritional; endocrine; and metabolic disorders (12 sources) Morbid obesity; Translations: [Morbid (severe) obesity due to excess calories] Chronic Other nutritional; endocrine; and metabolic disorders (17 sources) Insulin resistance; Translations: [Metabolic syndrome] 10-01-2023 [...] pharyngitis, unspecified] Onset: 06-17-2021 Resolved: 06-17-2021 Episodic Residual codes; unclassified (1 source) Amnesia; Translations: [Other amnesia] 04-21-2024 Episodic Residual codes; unclassified (2 sources) Personal history of other specified conditions; Translations: [History of seizure] 04-21-2024 Episodic Residual codes; unclassified (1 source) Other amnesia; Translations: [Memory loss] 04-21-2024 Episodic Spondylosis; intervertebral disc disorders; other back problems (18 sources) Sacroiliitis, not elsewhere classified; Translations: [Other intervertebral disc degeneration, lumbar region] Onset: 11-08-2022 Chronic Unclassified (1 source) Morbid (severe) obesity due to excess calories; Translations: [Morbid (severe) obesity due to excess calories] Onset: 10-01-2023 Unclassified (1 source) Food insecurity; Translations: [Food insecurity] Onset: 10-01-2023 Unclassified (1 source) Encounter for other specified aftercare; Translations: [Encounter for other specified aftercare] Onset: 07-19-2023 Viral infection (7 sources) Viral infection, unspecified; Translations: [Herpes simplex] Episodic Past or Other Problems Problem Classification Problem Date Documented Da te Episodic/Chronic Administrative/social admission (20 sources) Dietary counseling and surveillance; Translations: [Other specified counseling] Onset: 08-19-2023 Episodic Diabetes mellitus without complication (12 sources) Impaired fasting glucose; Translations: [Prediabetes] Onset: [...] Range Facility Basophils Auto (Bld) [#/Vol] on 04-12-2024 Basophils (Bld) [#/Vol] 0.1 10 3/uL 0.0-0.1 [facility] Basophils/100 WBC Auto (Bld) on 04-12-2024 Basophils/100 WBC (Bld) 0.6 % 0.2-2.0 [facility] Buprenorphine [Presence] in Urineon 04-12-2024 Buprenorphine Ql (U) Negative NEGATIVE [facility] Comment on above: DRUG CLASS TEST SYST EM CUT-OFF CONCENTRATIONS ARE ASFOLLOWS:AMP (Amphetamine): 500 ng/mLBAR (Barbiturates): 200 ng/mLBZO (Benzodiazepines): 150 ng/mLBUP (Buprenorphine): 10 ng/mLCOC (Cocaine): 150 ng/mLmAMP (Methamphetamine): 500 ng/mLMTD (Methadone): 200 ng/mLOPI (Opiates): 100 ng/mLOXY (Oxycodone): 100 ng/mLPCP (Phencyclidine): 25 ng/mLTHC (Cannabinoids): 50 ng/mLTCA (Trycyclic Antidepressants): 300 ng/mL Eosinophils/100 WBC Auto (Bl d)on 04-12-2024 Eosinophils/100 WBC (Bld) 1.0 % 0.9-7.0 [facility] Erythrocyte distribution wid th Auto (RBC) [Ratio]on 04-12-2024 Erythrocyte distribution width (RBC) [Ratio] 17.4 % High 11.0-15.0 [facility] Estimated glomerular filtrat ion rate (GFR) non- Americanon 04-12-2024 GFR/1.73 sq M.predicted among non-blacks MDRD (S/P/Bld) [Vol rate/Area] mL/min/{1.73_m2} >=60 [facility] Globulin Calc (S) [Mass/Vol] on 04-12-2024 Globulin (S) [Mass/Vol] 4.1 g/dL [facility] HCG ( test) IA.rapi d Ql (U)on 04-12-2024 HCG ( test) Ql (U) Negative NEGATIVE [facility] Hematocrit Auto (Bld) [Volum e fraction]on 04-12-2024 Hematocrit (Bld) [Volume fraction] 37.9 % 36.0-48.0 [facility] Hemoglobin [Mass/volume] in Bloodon 04-12-2024 Hemoglobin (Bld) [Mass/Vol] 11.6 g/dL Low 12.0-16.0 [facility] Laboratory - Chemistry and C hemistry - challengeon 04-12-2024 Albumin [Mass/Vol] 3.3 g/dL Low 3.4-5.0 [facility] ALP [Catalytic activity/Vol] 75 U/L 46-116 [facility] ALT [Catalytic activity/Vol] 36 U/L 14-59 [facility] AST [Catalytic activity/Vol] 19 U/L 15-37 [facility] Bilirubin [Mass/Vol] 0.3 mg/dL 0.2-1.0 [facility] Calcium [Mass/Vol] 8.6 mg/dL 8.5-10.1 [facility] Chloride [Moles/Vol] 101 mmol/L 98-107 [facility] CO2 [Moles/Vol] 28.7 mmol/L 21.0-32.0 [facility] Creatinine [Mass/Vol] 0.70 mg/dL 0.55-1.02 [facility] GFR/1.73 sq M.predicted MDRD (S/P/Bld) [Vol rate/Area] mL/min/{1.73_m2} >=60 [facility] Glucose [Mass/Vol] 103 mg/dL 74-106 [facility] Potassium [Moles/Vol] 3.7 mmol/L 3.5-5.1 [facility] Protein [Mass/Vol] 7.4 g/dL 6.4-8.2 [facility] Sodium [Moles/Vol] 136 mmol/L 136-145 [facility] Urea nitrogen [Mass/Vol] 10.0 mg/dL 7.0-18.0 [facility] Urea nitrogen/Creatinine [Mass ratio] 14.3 mg/mg [facility] Bilirubin Ql (U) Negative NEGATIVE [facility] Glucose (U) [Mass/Vol] Negative NEGATIVE [facility] Ketones Ql (U) Negative NEGATIVE [facility] pH (U) 6.0 [pH] 5.0-9.0 [facility] Specific gravity (U) [Rel density] >=1.030 Abnormal 1.005-1.025 [facility] Urobilinogen Qn (U) 0.2 {Tamiko'U}/dL 0.2-1.0 [facility] Laboratory - Drug toxicology on 04-12-2024 Amphetamines Ql (U) Negative NEGATIVE [facility] Benzodiazepines Ql (U) Negative NEGATIVE [facility] Cocaine Ql (U) Negative NEGATIVE [facility] Opiates Ql (U) Negative NEGATIVE [facility] Phencyclidine Ql (U) Negative NEGATIVE [facility] Laboratory - Hematology and Cell countson 04-12-2024 Immature granulocytes/100 WBC (Bld) 0.3 % 0.0-0.5 [facility] Laboratory - Specimen inform ationon 04-12-2024 Appearance (U) CLEAR CLEAR [facility] Color (U) YELLOW YELLOW [facility] Laboratory - Urinalysison Leukocyte esterase Test strip Ql (U) Negative NEGATIVE [facility] Mucus Ql (Urine sed) TRACE Abnormal NONE SEEN [facility] Nitrite Ql (U) Negative NEGATIVE [facility] Protein Ql (U) Negative NEG/TRACE [facility] Leukocytes [#/volume] correc carmelita for nucleated erythrocytes in Blood by Automated counon 04-12-2024 WBC corrected for nucl RBC Auto (Bld) [#/Vol] 9.9 10 3/uL 4.0-11.0 [facility] Lymphocytes Auto (Bld) [#/Vo l]on 04-12-2024 Lymphocytes (Bld) [#/Vol] 3.5 10 3/uL 1.2-3.8 [facility] Lymphocytes/100 WBC Auto (Bl d)on 04-12-2024 Lymphocytes/100 WBC (Bld) 35.5 % 20.5-60.0 [facility] MCH Auto (RBC) [Entitic mass ]on 04-12-2024 MCH (RBC) [Entitic mass] 24.5 pg Low 26.7-34.0 [facility] MCHC Auto (RBC) [Mass/Vol]on 04-12-2024 MCHC (RBC) [Mass/Vol] 30.6 g/dL 29.9-35.2 [facility] MCV Auto (RBC) [Entitic vol] on 04-12-2024 MCV (RBC) [Entitic vol] 80.1 fL Low 81.0-99.0 [facility] Methadone [Presence] in Urin e by Screen methodon 04-12-2024 Methadone Screen Ql (U) Negative NEGATIVE [facility] Monocytes Auto (Bld) [#/Vol] on 04-12-2024 Monocytes (Bld) [#/Vol] 0.5 10 3/uL 0.3-0.8 [facility] Monocytes/100 WBC Auto (Bld) on 04-12-2024 Monocytes/100 WBC (Bld) 4.7 % 1.7-12.0 [facility] Neutrophils Auto (Bld) [#/Vo l]on 04-12-2024 Neutrophils (Bld) [#/Vol] 5.7 10 3/uL 1.4-6.5 [facility] Neutrophils/100 WBC Auto (Bl d)on 04-12-2024 Neutrophils/100 WBC (Bld) 57.9 % 43.0-75.0 [facility] No Panel Informationon 04-12 Acetaminophen Level <2.0 ug/mL Low 10.0-30.0 [facility] Eosinophils # (Auto) 0.1 10 3/uL 0.0-0.7 [facility] Ethyl Alcohol Level <3 mg/dL [facility] Comment on above: NOTE: 80 mg/dl is th e legal limit for a blood alcohol level Immature Granulocyte # (Auto) 0.03 10 3/uL 0.00-0.03 [facility] Salicylates Level <2.8 mg/dL <=19.9 [facility] Urine Bacteria SMALL #/HPF Abnormal NONE SEEN [facility] Urine Barbiturates Screen Negative NEGATIVE [facility] Urine Culture Reflexed YES [facility] Urine Marijuana (THC) Screen Negative NEGATIVE [facility] Urine Methamphetamines Screen Negative NEGATIVE [facility] Urine Occult Blood Negative NEGATIVE [facility] Urine Other Casts NONE SEEN #/LPF NONE SEEN [facility] Urine Other Crystals None Seen #/HPF None Seen [facility] Urine RBC 0-2 #/HPF 0-2 [facility] Urine Squamous Epithelial Cells FEW #/LPF Abnormal NONE/RARE [facility] Urine Transitional Epithelial Cells RARE #/LPF Abnormal NONE SEEN [facility] Urine WBC 2-5 #/HPF Abnormal NONE SEEN [facility] Platelet mean volume Auto (B ld) [Entitic vol]on 04-12-2024 Platelet mean volume (Bld) [Entitic vol] 10.2 fL 9.5-13.5 [facility] Platelets Auto (Bld) [#/Vol] on 04-12-2024 Platelets (Bld) [#/Vol] 299 10 3/uL 150-450 [facility] RBC Auto (Bld) [#/Vol]on RBC (Bld) [#/Vol] 4.73 10 6/uL 4.20-5.40 [facility] Serum or plasma albumin/glob ulin mass ratioon 04-12-2024 Albumin/Globulin [Mass ratio] 0.8 {ratio} [facility] Serum or plasma anion gap de terminationon 04-12-2024 Anion gap [Moles/Vol] 10.0 mmol/[facility] Urine tricyclic antidepressa nt measurementon 04-12-2024 Tricyclic antidepressants (U) [Mass/Vol] Negative NEGATIVE [facility] oxyCODONE+oxyMORphone [Prese nce] in Urine by Screen methodon 04-12-2024 oxyCODONE+oxyMORphone Screen Ql (U) Negative NEGATIVE [facility] Basophils Auto (Bld) [#/Vol] on 11-03-2023 Basophils (Bld) [#/Vol] 0.0 10 3/uL 0.0-0.1 [facility] Basophils/100 WBC Auto (Bld) on 11-03-2023 Basophils/100 WBC (Bld) 0.5 % 0.2-2.0 [facility] Eosinophils/100 WBC Auto (Bl d)on 11-03-2023 Eosinophils/100 WBC (Bld) 1.4 % 0.9-7.0 [facility] Erythrocyte distribution wid th Auto (RBC) [Ratio]on 11-03-2023 Erythrocyte distribution width (RBC) [Ratio] 16.3 % 11.0-15.0 [facility] Estimated glomerular filtrat ion rate (GFR) non- Americanon 11-03-2023 GFR/1.73 sq M.predicted among non-blacks MDRD (S/P/Bld) [Vol rate/Area] mL/min/{1.73_m2} >=60 [facility] Globulin Calc (S) [Mass/Vol] on 11-03-2023 Globulin (S) [Mass/Vol] 4.0 g/dL [facility] Hematocrit Auto (Bld) [Volum e fraction]on 11-03-2023 Hematocrit (Bld) [Volume fraction] 26.1 % 36.0-48.0 [facility] Hemoglobin [Mass/volume] in Bloodon 11-03-2023 Hemoglobin (Bld) [Mass/Vol] 7.8 g/dL 12.0-16.0 [facility] Human papilloma virus 16+18+ 31+33+35+39+45+51+52+56+58+59+66+68 DNA [Presence] in [place] 11-03-2023 HPV 16+18+31+33+35+39+45+51 +52+56+58+59+66+68 DNA Probe+sig amp Ql (Cvx) Negative Negative [facility] Comment on above: This nucleic acid am plification test detects fourteen high-risk HPV types (16,18,31,33,35,39,45,51,52,56,58,59,66,68)without differentiation.Performed at: = - [facility] [id number] Director: Monse Cardona MD, Phone: [phone] at: [facility] [id number] Director: Monse Cardona MD, Phone: [phone] Iron binding capacity [Mass/ volume] in Serum or Plasmaon 11-03-2023 Iron binding capacity [Mass/Vol] 512.0 ug/dL 250.0-450.0 [facility] Iron saturation [Mass Fracti on] in Serum or Plasmaon 11-03-2023 Iron saturation [Mass fraction] 2.7 % [facility] Laboratory - Chemistry and C hemistry - challengeon 11-03-2023 Albumin [Mass/Vol] 3.1 g/dL 3.4-5.0 [facility] ALP [Catalytic activity/Vol] 63 U/L 46-116 [facility] ALT [Catalytic activity/Vol] 29 U/L 14-59 [facility] AST [Catalytic activity/Vol] 18 U/L 15-37 [facility] Bilirubin [Mass/Vol] 0.2 mg/dL 0.2-1.0 [facility] Calcium [Mass/Vol] 8.7 mg/dL 8.5-10.1 [facility] Chloride [Moles/Vol] 102 mmol/L 98-107 [facility] CO2 [Moles/Vol] 27.6 mmol/L 21.0-32.0 [facility] Creatinine [Mass/Vol] 0.70 mg/dL 0.55-1.02 [facility] Ferritin [Mass/Vol] 6.0 ng/mL 8.0-252.0 [facility] GFR/1.73 sq M.predicted MDRD (S/P/Bld) [Vol rate/Area] mL/min/{1.73_m2} >=60 [facility] Glucose [Mass/Vol] 103 mg/dL 74-106 [facility] Iron [Mass/Vol] 14.0 ug/dL 50.0-170.0 [facility] Potassium [Moles/Vol] 3.8 mmol/L 3.5-5.1 [facility] [facility] Protein [Mass/Vol] 7.1 g/dL 6.4-8.2 [facility] Sodium [Moles/Vol] 139 mmol/L 136-145 [facility] Urea nitrogen [Mass/Vol] 11.0 mg/dL 7.0-18.0 [facility] Urea nitrogen/Creatinine [Mass ratio] 15.7 mg/mg [facility] Laboratory - Hematology and Cell countson 11-03-2023 Immature granulocytes/100 WBC (Bld) 0.4 % 0.0-0.5 [facility] Leukocytes [#/volume] correc carmelita for nucleated erythrocytes in Blood by Automated counon 11-03-2023 WBC corrected for nucl RBC Auto (Bld) [#/Vol] 7.4 10 3/uL 4.0-11.0 [facility] Lymphocytes Auto (Bld) [#/Vo l]on 11-03-2023 Lymphocytes (Bld) [#/Vol] 2.5 10 3/uL 1.2-3.8 [facility] Lymphocytes/100 WBC Auto (Bl d)on 11-03-2023 Lymphocytes/100 WBC (Bld) 33.6 % 20.5-60.0 [facility] MCH Auto (RBC) [Entitic mass ]on 11-03-2023 MCH (RBC) [Entitic mass] 24.8 pg 26.7-34.0 [facility] MCHC Auto (RBC) [Mass/Vol]on 11-03-2023 MCHC (RBC) [Mass/Vol] 29.9 g/dL 29.9-35.2 [facility] MCV Auto (RBC) [Entitic vol] on 11-03-2023 MCV (RBC) [Entitic vol] 82.9 fL 81.0-99.0 [facility] Monocytes Auto (Bld) [#/Vol] on 11-03-2023 Monocytes (Bld) [#/Vol] 0.4 10 3/uL 0.3-0.8 [facility] Monocytes/100 WBC Auto (Bld) on 11-03-2023 Monocytes/100 WBC (Bld) 5.6 % 1.7-12.0 [facility] Neutrophils Auto (Bld) [#/Vo l]on 11-03-2023 Neutrophils (Bld) [#/Vol] 4.3 10 3/uL 1.4-6.5 [facility] Neutrophils/100 WBC Auto (Bl d)on 11-03-2023 Neutrophils/100 WBC (Bld) 58.5 % 43.0-75.0 [facility] No Panel Informationon 11-02 Eosinophils # (Auto) 0.1 10 3/uL 0.0-0.7 [facility] Immature Granulocyte # (Auto) 0.03 10 3/uL 0.00-0.03 [facility] HPV High Risk Other Comment Note . [facility] Comment on above: TESTS RESULT FLAG UN ITS REF RANGE LAB -DIAGNOSIS: 02 NEGATIVE FOR INTRAEPITHELIAL LESION OR MALIGNANCY.Specimen adequacy: 02 Satisfactory for evaluation. Endocervical and/or squamous metaplastic cells (endocervical component) are present.Performed by: 02 Beverly Escalante, Biometrics Experimentalist (ASCP). 02Note: Note 02 The Pap smear [...] <-Panic Low,>-Panic High,A-Abnormal,AA-Critical Abnormal ------Performed at:[address] [phone] Monse Cardona MD, Reference Lab Test Patient Age Note . [facility] Comment on above: TESTS RESULT FLAG UN ITS REF RANGE LAB - Clinician Provided Cytology Information Source.............Cervix;Endocervix No. of containers..01 ThinPrep VialAge Jean-Pierre YOON Elise... 30 FLAG LEGEND: L-Low Normal,H-High Normal,LL-Alert Low,HH-Alert High <-Panic Low,>-Panic High,A-Abnormal,AA-Critical Abnormal ------Performed at:01 =[facility] [address] [place] [address] Monse Cardona MD, Platelet mean volume Auto (B ld) [Entitic vol]on 11-03-2023 Platelet mean volume (Bld) [Entitic vol] 9.6 fL 9.5-13.5 [facility] Platelets Auto (Bld) [#/Vol] on 11-03-2023 Platelets (Bld) [#/Vol] 323 10 3/uL 150-450 [facility] RBC Auto (Bld) [#/Vol]on RBC (Bld) [#/Vol] 3.15 10 6/uL 4.20-5.40 [facility] Serum or plasma albumin/glob ulin mass ratioon 11-03-2023 Albumin/Globulin [Mass ratio] 0.8 {ratio} [facility] Serum or plasma anion gap de terminationon 11-03-2023 Anion gap [Moles/Vol] 13.2 mmol/L [facility] Basophils Auto (Bld) [#/Vol] on 10-30-2023 Basophils (Bld) [#/Vol] 0.0 10 3/uL 0.0-0.1 [facility] Basophils/100 WBC Auto (Bld) on 10-30-2023 Basophils/100 WBC (Bld) 0.6 % 0.2-2.0 [facility] Eosinophils/100 WBC Auto (Bl d)on 10-30-2023 Eosinophils/100 WBC (Bld) 1.2 % 0.9-7.0 [facility] Erythrocyte distribution wid th Auto (RBC) [Ratio]on 10-30-2023 Erythrocyte distribution width (RBC) [Ratio] 16.6 % 11.0-15.0 [facility] Estimated glomerular filtrat ion rate (GFR) non- Americanon 10-30-2023 GFR/1.73 sq M.predicted among non-blacks MDRD (S/P/Bld) [Vol rate/Area] mL/min/{1.73_m2} >=60 [facility] HCG ( test) IA.rapi d Ql (U)on 10-30-2023 HCG ( test) Ql (U) Negative NEGATIVE [facility] Hematocrit Auto (Bld) [Volum e fraction]on 10-30-2023 Hematocrit (Bld) [Volume fraction] 26.6 % 36.0-48.0 [facility] Hemoglobin [Mass/volume] in Bloodon 10-30-2023 Hemoglobin (Bld) [Mass/Vol] 7.9 g/dL 12.0-16.0 [facility] Laboratory - Chemistry and C hemistry - challengeon 10-30-2023 Calcium [Mass/Vol] 8.5 mg/dL 8.5-10.1 [facility] Chloride [Moles/Vol] 101 mmol/L 98-107 [facility] CO2 [Moles/Vol] 28.8 mmol/L 21.0-32.0 [facility] Creatinine [Mass/Vol] 0.62 mg/dL 0.55-1.02 [facility] GFR/1.73 sq M.predicted MDRD (S/P/Bld) [Vol rate/Area] mL/min/{1.73_m2} >=60 [facility] Glucose [Mass/Vol] 104 mg/dL 74-106 [facility] Potassium [Moles/Vol] 4.0 mmol/L 3.5-5.1 [facility] Sodium [Moles/Vol] 137 mmol/L 136-145 [facility] Urea nitrogen [Mass/Vol] 8.0 mg/dL 7.0-18.0 [facility] Urea nitrogen/Creatinine [Mass ratio] 12.9 mg/mg [facility] Laboratory - Hematology and Cell countson 10-30-2023 Immature granulocytes/100 WBC (Bld) 0.4 % 0.0-0.5 [facility] Leukocytes [#/volume] correc carmelita for nucleated erythrocytes in Blood by Automated counon 10-30-2023 WBC corrected for nucl RBC Auto (Bld) [#/Vol] 7.3 10 3/uL 4.0-11.0 [facility] Lymphocytes Auto (Bld) [#/Vo l]on 10-30-2023 Lymphocytes (Bld) [#/Vol] 2.2 10 3/uL 1.2-3.8 [facility] Lymphocytes/100 WBC Auto (Bl d)on 10-30-2023 Lymphocytes/100 WBC (Bld) 30.2 % 20.5-60.0 [facility] MCH Auto (RBC) [Entitic mass ]on 10-30-2023 MCH (RBC) [Entitic mass] 25.0 pg 26.7-34.0 [facility] MCHC Auto (RBC) [Mass/Vol]on 10-30-2023 MCHC (RBC) [Mass/Vol] 29.7 g/dL 29.9-35.2 [facility] MCV Auto (RBC) [Entitic vol] on 10-30-2023 MCV (RBC) [Entitic vol] 84.2 fL 81.0-99.0 [facility] Monocytes Auto (Bld) [#/Vol] on 10-30-2023 Monocytes (Bld) [#/Vol] 0.3 10 3/uL 0.3-0.8 [facility] Monocytes/100 WBC Auto (Bld) on 10-30-2023 Monocytes/100 WBC (Bld) 3.7 % 1.7-12.0 [facility] Neutrophils Auto (Bld) [#/Vo l]on 10-30-2023 Neutrophils (Bld) [#/Vol] 4.6 10 3/uL 1.4-6.5 [facility] Neutrophils/100 WBC Auto (Bl d)on 10-30-2023 Neutrophils/100 WBC (Bld) 63.9 % 43.0-75.0 [facility] No Panel Informationon 10-29 Eosinophils # (Auto) 0.1 10 3/uL 0.0-0.7 [facility] Immature Granulocyte # (Auto) 0.03 10 3/uL 0.00-0.03 [facility] Platelet mean volume Auto (B ld) [Entitic vol]on 10-30-2023 Platelet mean volume (Bld) [Entitic vol] 9.4 fL 9.5-13.5 [facility] Platelets Auto (Bld) [#/Vol] on 10-30-2023 Platelets (Bld) [#/Vol] 264 10 3/uL 150-450 [facility] RBC Auto (Bld) [#/Vol]on RBC (Bld) [#/Vol] 3.16 10 6/uL 4.20-5.40 [facility] Serum or plasma anion gap de terminationon 10-30-2023 Anion gap [Moles/Vol] 11.2 mmol/L [facility] MR head/brain wo/w conon MR head/brain wo/[place] [address] MRI Report Signed Patient: Ashly Mehta MR#: [id number] 8 : 1990 Acct:[id number] Age/Sex: 33 / F ADM Date: 10/08/23 Loc: MR Room: Type: [facility] Attending Dr: Akil Cox DO Copies to: [...] Ivan Holliday M.D.10/08/2023 4:38 PM Dictation Location: [place] [address] Transcribed By: [facility] 10/08/23 1638 Dictated By: Ivan Holliday II, MD 10/08/23 1630 Signed By: 10/08/23 1638 Normal [facility] HCG ( test) IA.rapi d Ql (U)on 10-06-2023 HCG ( test) Ql (U) Negative NEGATIVE [facility] COVID + FLU Quick Testingon 07-07-2023 SARS-CoV-2 (COVID-19) RNA SURI+probe Ql (Unsp spec) Negative [facility] [employer] Other COVID + FLU Quick Testing Negative [facility] [employer] Other Alanine aminotransferase [En zymatic activity/volume] in Serum or PlasmaOrdered By: Celio Mullins on 07-03-2023 ALT [Catalytic activity/Vol] 22 U/L Normal 7- [facility] Comment on above: Performed By: #### L IPID, CMP #### [address] Albumin [Mass/volume] in Ser um or Plasma by Bromocresol green (BCG) dye binding methoOrdered By: Celio Mullins on 07-03-2023 Albumin BCG dye [Mass/Vol] 4.4 g/dL 3.5-5.7 [facility] Alkaline phosphatase [Enzyma tic activity/volume] in Serum or PlasmaOrdered By: Celio Mullins on 07-03-2023 ALP [Catalytic activity/Vol] 68 U/L Normal 34-104 [facility] Comment on above: Performed By: #### L IPID, CMP #### [facility] [address] [place] [address] [place] Aspartate aminotransferase [ Enzymatic activity/volume] in Serum or PlasmaOrdered By: Celio Mullins on 07-03-2023 AST [Catalytic activity/Vol] 18 U/L Normal 13-39 [facility] Comment on above: Performed By: #### L IPID, CMP #### [place] [address] [place] Bilirubin.total [Mass/volume ] in Serum or PlasmaOrdered By: Celio Mullins on 07-03-2023 Bilirubin [Mass/Vol] 0.4 mg/dL Normal 0.3-1.0 [facility] Comment on above: Performed By: #### L IPID, CMP #### [place] [address] [place] Calcium [Mass/volume] in Ser um or PlasmaOrdered By: Celio Mullins on 07-03-2023 Calcium [Mass/Vol] 9.4 mg/dL Normal 8.6-10.3 [facility] Comment on above: Performed By: #### L IPID, CMP #### [facility] [address] [place] [address] [place] Carbon dioxide, total [Moles /volume] in Serum or PlasmaOrdered By: Celio Mullins on 07-03-2023 CO2 [Moles/Vol] 30.1 mmol/L Normal 21.0-31.0 [facility] Comment on above: Performed By: #### L IPID, CMP #### [place] [address] [place] Chloride [Moles/volume] in S marta or PlasmaOrdered By: Celio Mullins on 07-03-2023 Chloride [Moles/Vol] 105 mmol/L Normal 98-107 [facility] Comment on above: Performed By: #### L IPID, CMP #### [facility] [address] [place] [address] [place] Cholesterol [Mass/volume] in Serum or PlasmaOrdered By: Celio Mullins on 07-03-2023 Cholesterol [Mass/Vol] 126 mg/dL Low 140-200 [facility] Comment on above: Chol less than 200 m g/dl low riskChol 201-239 mg/dl borderline riskChol 240 mg/dl and greater high risk Result Comment: Chol less than 200 mg/dl low risk Chol 201-239 mg/dl borderline risk Chol 240 mg/dl and greater high risk Performed By: #### L IPID, CMP #### [facility] [address] [place] [address] [place] Cholesterol in LDL Calc [Mas s/Vol]Ordered By: Celio Mullins on 07-03-2023 Cholesterol in LDL [Mass/Vol] 69 mg/dL 0-100 [facility] Comment on above: LDL ATP III CLASSIFI CATIONLDL less than 100 mg/dL OptimalLDL 100-129 mg/dL Near or above optimalLDL 130-159 mg/dL Borderline highLDL 160-189 mg/dL HighLDL greater than 189 mg/dL Very high Cholesterol in VLDL Calc [Ma ss/Vol]Ordered By: Celio Mullins on 07-03-2023 Cholesterol in VLDL [Mass/Vol] 18 mg/dL [facility] Comprehensive Metabolic Pane landon 07-03-2023 Albumin [Mass/Vol] 4.4 g/dL Normal 3.5-5.7 [facility] Comment on above: Performed By: #### L IPID, CMP #### [facility] [address] [place] [address] [place] GFR/1.73 sq M.predicted MDRD (S/P/Bld) [Vol rate/Area] mL/min/{1.73_m2} Normal [facility] Comment on above: Performed By: #### L IPID, CMP #### [facility] [address] [place] [address] [place] Creatinine [Mass/volume] in Serum or PlasmaOrdered By: Celio Mullins on 07-03-2023 Creatinine [Mass/Vol] 0.63 mg/dL Normal 0.60-1.20 [facility] Comment on above: Performed By: #### L IPID, CMP #### [facility] [address] Glucose [Mass/volume] in Ser um or PlasmaOrdered By: Celio Mullins on 07-03-2023 Glucose [Mass/Vol] 97 mg/dL Normal 70-100 [facility] Comment on above: ADA recommended refe rence rangeRandom Glucose Reference Range is dependent on time and content of last meal. Glucose of more than 200 mg/dL in a nonstressed, ambulatory subject supports the diagnosis of Diabetes Mellitus. Result Comment: [place] om Glucose Reference Range is dependent on time and content of last meal. Glucose of more than 200 mg/dL in a nonstressed, ambulatory subject supports the diagnosis of Diabetes Mellitus. ADA recommended reference range Performed By: #### L IPID, CMP #### [facility] [address] Lipid Panelon 07-03-2023 LDL Cholesterol,Calculated 69 mg/dL Normal 0-100 [facility] Comment on above: Result Comment: LDL ATP III CLASSIFICATION LDL less than 100 mg/dL Optimal LDL 100-129 mg/dL Near or above optimal LDL 130-159 mg/dL Borderline high LDL 160-189 mg/dL High LDL greater than 189 mg/dL Very high Performed By: #### L IPID, CMP #### [facility] [address] Triglyceride w/Reflex 92 mg/dL Normal 0-149 [...] Performed By: #### L IPID, CMP #### [facility] [address] VLDL CHOLESTEROL 18 mg/dL Normal [facility] Comment on above: Performed By: #### L IPID, CMP #### [facility] [address] [place] [address] No Panel InformationOrdered By: Celio Mullins on 07-03-2023 Estimated GFR (CKD-EPI) > 60.0 mL/Min [facility] Creatinine Clearance (Chem N/A [facility] Potassium [Moles/volume] in Serum or PlasmaOrdered By: Celio Mullins on 07-03-2023 Potassium [Moles/Vol] 4.3 mmol/L Normal 3.5-5.1 [facility] Comment on above: Performed By: #### L IPID, CMP #### [address] Protein [Mass/volume] in Ser um or PlasmaOrdered By: Celio Mullins on 07-03-2023 Protein [Mass/Vol] 7.5 g/dL Normal 6.4-8.9 [facility] Comment on above: Performed By: #### L IPID, CMP #### [facility] [address] [place] [address] Serum globulin measurement b y calculation (mass/volume)Ordered By: Celio Mullins on 07-03-2023 Globulin (S) [Mass/Vol] 3.1 g/dL Normal [facility] Comment on above: Performed By: #### L IPID, CMP #### [facility] [address] [place] [address] Serum or plasma albumin/glob ulin mass ratioOrdered By: Celio Mullins on 07-03-2023 Albumin/Globulin [Mass ratio] 1.4 {ratio} Normal [facility] Comment on above: Performed By: #### L IPID, CMP #### [facility] [address] [place] [address] Serum or plasma anion gap de terminationOrdered By: Celio Mullins on 07-03-2023 Anion gap [Moles/Vol] 10.2 mmol/L Normal 6.0-15.0 [facility] Comment on above: Performed By: #### L IPID, CMP #### [facility] [address] [place] [address] Serum or plasma high density lipoprotein (HDL) cholesterol measurementOrdered By: Celio Mullins on 07-03-2023 Cholesterol in HDL [Mass/Vol] 39 mg/dL Normal 23-92 [facility] Comment on above: HDL CHOL ATP-III CLA SSIFICATION Cardiovascular RiskHDL > or equal to 60 mg/dL LOWHDL < 40 mg/dL HIGH Result Comment: HDL CHOL ATP-III CLASSIFICATION Cardiovascular Risk HDL > or equal to 60 mg/dL LOW HDL < 40 mg/dL HIGH Performed By: #### L IPID, CMP #### [facility] [address] Serum or plasma total choles terol/high density lipoprotein (HDL) cholesterol mass ratOrdered By: Celio Mullins on 07-03-2023 Cholesterol.total/Mali sterol in HDL [Mass ratio] 3.2 {ratio} Normal <5.0 [facility] Comment on above: Result Comment: PERF ORMED BY: [place] [address] PATHOLOGIST FOOD AND NUTRITION SERVICES ASSISTANT NESHA MAIER M.D. Performed By: #### L IPID, CMP #### [facility] [address] Sodium [Moles/volume] in Ser um or PlasmaOrdered By: Celio Mullins on 07-03-2023 Sodium [Moles/Vol] 141 mmol/L Normal 136-145 [facility] Comment on above: Performed By: #### L IPID, CMP #### [facility] [address] Triglyceride [Mass/volume] i n Serum or PlasmaOrdered By: Celio Mullins on 07-03-2023 Triglyceride [Mass/Vol] 92 mg/dL 0-149 [facility] Comment on above: TRIG ATP III CLASSIF ICATIONTRIG less than 150 mg/dL NormalTRIG 150-199 mg/dL Borderline highTRIG 200-500 mg/dL High TRIG greater than 500 mg/dL Very highStandard traceable to the Center for Disease Conrtrol and Prevention (CDC) test method. Urea nitrogen [Mass/volume] in Serum or PlasmaOrdered By: Celio Mullins on 07-03-2023 Urea nitrogen [Mass/Vol] 13 mg/dL Normal 7-25 [facility] Comment on above: Performed By: #### L IPID, CMP #### [facility] [address] [place] [address] [place] A1C with Estimated Average G gee 07-01-2023 Glucose [Mass/Vol] 117 mg/dL Normal [facility] Comment on above: Order Comment: Reaso n for Exam Severe obesity (BMI >= 40);PCOS (polycystic ovarian syndrome Result Comment: PERF ORMED BY: [place] [address] PATHOLOGIST FOOD AND NUTRITION SERVICES ASSISTANT NESHA MAIER M.D. Performed By: #### A POB, LIPA #### [facility] , #### CMP, A1C WT eA #### [facility] [address] [place] [address] Alanine aminotransferase [En zymatic activity/volume] in Serum or PlasmaOrdered By: Celio Mullins on 07-01-2023 ALT [Catalytic activity/Vol] 21 U/L Normal 7-52 [facility] Comment on above: Order Comment: Reaso n for Exam Severe obesity (BMI >= 40);PCOS (polycystic ovarian syndrome NON FASTING Performed By: #### A POB, LIPA #### [facility] , #### CMP, A1C WT eA #### [place] [address] [place] Albumin [Mass/volume] in Ser um or Plasma by Bromocresol green (BCG) dye binding methoOrdered By: Celio Mullins on 07-01-2023 Albumin BCG dye [Mass/Vol] 4.6 g/dL 3.5-5.7 [facility] Alkaline phosphatase [Enzyma tic activity/volume] in Serum or PlasmaOrdered By: Celio Mullins on 07-01-2023 ALP [Catalytic activity/Vol] 72 U/L Normal 34-104 [facility] Comment on above: Order Comment: Reaso n for Exam Severe obesity (BMI >= 40);PCOS (polycystic ovarian syndrome NON FASTING Result Comment: PERF ORMED BY: [place] [id number] PATHOLOGIST FOOD AND NUTRITION SERVICES ASSISTANT NESHA MAIER M.D. Performed By: #### A POB, LIPA #### [facility] , #### CMP, A1C WTH eA #### [facility] [address] [place] [id number] [facility] Apolipoprotein B [Mass/volum e] in Serum or PlasmaOrdered By: Celio Mullins on 07-01-2023 Apolipoprotein B [Mass/Vol] 83 mg/dL Normal <90 [facility] Comment on above: Desirable < 90 Borde rline High 90 - 99 High 100 - 130 Very High >130 ASCVD RISK THERAPEUTIC TARGET CATEGORY APO B (mg/dL) Very High Risk <80 (if extreme risk <70) High Risk <90 Moderate Risk <90Performed at: [facility] [address] [id number] Director: Jeanna Case MD, Phone: [phone] Order Comment: Reaso n for Exam Severe obesity (BMI >= 40);PCOS (polycystic ovarian syndrome Result Comment: Hedy rable < 90 Borderline High 90 - 99 High 100 - 130 Very High >130 ASCVD RISK THERAPEUTIC TARGET CATEGORY APO B (mg/dL) Very High Risk <80 (if extreme risk <70) High Risk <90 Moderate Risk <90 Performed at: [facility] [id number] [employer] Buyer: Jeanna Case MD, Phone: [phone] PERFORMED BY: [facility] [address] [place] [id number] PATHOLOGIST FOOD AND NUTRITION SERVICES ASSISTANT NESHA MAIER M.D. Performed By: #### A POB, LIPA #### [facility] , #### CMP, A1C WTH eA #### [facility] [address] [place] [address] [place] Aspartate aminotransferase [ Enzymatic activity/volume] in Serum or PlasmaOrdered By: Celio Mullins on 07-01-2023 AST [Catalytic activity/Vol] 19 U/L Normal 13-39 [facility] Comment on above: Order Comment: Reaso n for Exam Severe obesity (BMI >= 40);PCOS (polycystic ovarian syndrome NON FASTING Performed By: #### A POB, LIPA #### [facility] , #### CMP, A1C WTH eA #### [facility] [address] Bilirubin.total [Mass/volume ] in Serum or PlasmaOrdered By: Celio Mullins on 07-01-2023 Bilirubin [Mass/Vol] 0.4 mg/dL Normal 0.3-1.0 [facility] Comment on above: Order Comment: Reaso n for Exam Severe obesity (BMI >= 40);PCOS (polycystic ovarian syndrome NON FASTING Performed By: #### A POB, LIPA #### [facility] , #### CMP, A1C WT eA #### [facility] [address] Calcium [Mass/volume] in Ser um or PlasmaOrdered By: Celio Mullins on 07-01-2023 Calcium [Mass/Vol] 9.8 mg/dL Normal 8.6-10.3 [facility] Comment on above: Order Comment: Reaso n for Exam Severe obesity (BMI >= 40);PCOS (polycystic ovarian syndrome NON FASTING Performed By: #### A POB, LIPA #### [facility] , #### CMP, A1C WTH eA #### [facility] [address] [place] [address] [place] Carbon dioxide, total [Moles /volume] in Serum or PlasmaOrdered By: Celio Mullins on 07-01-2023 CO2 [Moles/Vol] 25.3 mmol/L Normal 21.0-31.0 [facility] Comment on above: Order Comment: Reaso n for Exam Severe obesity (BMI >= 40);PCOS (polycystic ovarian syndrome NON FASTING Performed By: #### A POB, LIPA #### [facility] , #### CMP, A1C WTH eA #### [facility] [address] Chloride [Moles/volume] in S marta or PlasmaOrdered By: Celio Mullins on 07-01-2023 Chloride [Moles/Vol] 105 mmol/L Normal 98-107 [facility] Comment on above: Order Comment: Reaso n for Exam Severe obesity (BMI >= 40);PCOS (polycystic ovarian syndrome NON FASTING Performed By: #### A POB, LIPA #### [facility] , #### CMP, A1C WT eA #### [address] Comprehensive Metabolic Pane landon 07-01-2023 Albumin [Mass/Vol] 4.6 g/dL Normal 3.5-5.7 [facility] Comment on above: Order Comment: Reaso n for Exam Severe obesity (BMI >= 40);PCOS (polycystic ovarian syndrome NON FASTING Performed By: #### A POB, LIPA #### [facility] , #### CMP, A1C WTH eA #### [place] [address] [place] GFR/1.73 sq M.predicted MDRD (S/P/Bld) [Vol rate/Area] mL/min/{1.73_m2} Normal [facility] Comment on above: Order Comment: Reaso n for Exam Severe obesity (BMI >= 40);PCOS (polycystic ovarian syndrome NON FASTING Performed By: #### A POB, LIPA #### [facility] , #### CMP, A1C WTH eA #### [place] [address] [place] Creatinine [Mass/volume] in Serum or PlasmaOrdered By: Celio Mullins on 07-01-2023 Creatinine [Mass/Vol] 0.64 mg/dL Normal 0.60-1.20 [facility] Comment on above: Order Comment: Reaso n for Exam Severe obesity (BMI >= 40);PCOS (polycystic ovarian syndrome NON FASTING Performed By: #### A POB, LIPA #### [facility] , #### CMP, A1C WTH eA #### [facility] [facility] [address] [place] [address] [place] Glucose [Mass/volume] in Ser um or PlasmaOrdered By: Celio Mullins on 07-01-2023 Glucose [Mass/Vol] 95 mg/dL Normal 70-100 [facility] Comment on above: ADA recommended refe rence rangeRandom Glucose Reference Range is dependent on time and content of last meal. Glucose of more than 200 mg/dL in a nonstressed, ambulatory subject supports the diagnosis of Diabetes Mellitus. Order Comment: Reaso n for Exam Severe obesity (BMI >= 40);PCOS (polycystic ovarian syndrome NON FASTING Result Comment: [place] om Glucose Reference Range is dependent on time and content of last meal. Glucose of more than 200 mg/dL in a nonstressed, ambulatory subject supports the diagnosis of Diabetes Mellitus. ADA recommended reference range Performed By: #### A POB, LIPA #### [facility] , #### CMP, A1C WTH eA #### [facility] [address] [place] [address] [place] Glucose mean value [Mass/vol ume] in Blood Estimated from glycated hemoglobinOrdered By: Celio Mullins on 07-01-2023 Average glucose Estimated from glycated hemoglobin (Bld) [Mass/Vol] 117 mg/dL [facility] Hemoglobin A1c percentageOrd ered By: Celio Mullins on 07-01-2023 HbA1c (Bld) [Mass fraction] 5.7 % High 4.3-5.6 [facility] Comment on above: Increased risk for d [...] , #### CMP, A1C WTH eA #### [facility] [address] [place] [address] [place] Lipoprotein (a)on 07-01-2023 Lipoprotein a [Mass/Vol] 13.0 [...] factors on Lp(a) across ethnicities. Performed at: [facility] [address] [id number] [place] Buyer: Cassius Zhong PhD, Phone: [phone] Performed By: #### A POB, LIPA #### [facility] , #### CMP, A1C WT eA #### [facility] [address] [place] [address] No Panel InformationOrdered By: Celio Mullins on 07-01-2023 Estimated GFR (CKD-EPI) > 60.0 mL/Min [facility] Creatinine Clearance (Chem N/A [facility] Potassium [Moles/volume] in Serum or PlasmaOrdered By: Celio Mullins on 07-01-2023 Potassium [Moles/Vol] 3.8 mmol/L Normal 3.5-5.1 [facility] Comment on above: Order Comment: Reaso n for Exam Severe obesity (BMI >= 40);PCOS (polycystic ovarian syndrome NON FASTING Performed By: #### A POB, LIPA #### [facility] , #### CMP, A1C WTH eA #### [facility] [address] [place] [address] [place] Protein [Mass/volume] in Ser um or PlasmaOrdered By: Celio Mullins on 07-01-2023 Protein [Mass/Vol] 7.8 g/dL Normal 6.4-8.9 [facility] Comment on above: Order Comment: Reaso n for Exam Severe obesity (BMI >= 40);PCOS (polycystic ovarian syndrome NON FASTING Performed By: #### A POB, LIPA #### [facility] , #### CMP, A1C WTH eA #### [address] Serum globulin measurement b y calculation (mass/volume)Ordered By: Celio Mullins on 07-01-2023 Globulin (S) [Mass/Vol] 3.2 g/dL Normal [facility] Comment on above: Order Comment: Reaso n for Exam Severe obesity (BMI >= 40);PCOS (polycystic ovarian syndrome NON FASTING Performed By: #### A POB, LIPA #### [facility] , #### CMP, A1C WTH eA #### [address] Serum or plasma albumin/glob ulin mass ratioOrdered By: Celio Mullins on 07-01-2023 Albumin/Globulin [Mass ratio] 1.4 {ratio} Normal [facility] Comment on above: Order Comment: Reaso n for Exam Severe obesity (BMI >= 40);PCOS (polycystic ovarian syndrome NON FASTING Performed By: #### A POB, LIPA #### [facility] , #### CMP, A1C WTH eA #### [address] Serum or plasma anion gap de terminationOrdered By: Celio Mullins on 07-01-2023 Anion gap [Moles/Vol] 11.5 mmol/L Normal 6.0-15.0 [facility] Comment on above: Order Comment: Reaso n for Exam Severe obesity (BMI >= 40);PCOS (polycystic ovarian syndrome NON FASTING Performed By: #### A POB, LIPA #### [facility] , #### CMP, A1C WTH eA #### [facility] [address] Serum or plasma lipoprotein a measurement (moles/volume)Ordered By: Celio Mullins on 07-01-2023 Lipoprotein a [Moles/Vol] 13.0 nmol/L <75.0 [facility] Comment on above: Note: Values greater than or equal to 75.0 nmol/L may indicate an independent risk factor for CHD, but must be evaluated with caution when applied to non- populations due to the influence of genetic factors on Lp(a) across ethnicities.Performed at: - [facility] [address] [id number] Director: Cassius Zhong PhD, Phone: [phone] Sodium [Moles/volume] in Ser um or PlasmaOrdered By: Celio Mullins on 07-01-2023 Sodium [Moles/Vol] 138 mmol/L Normal 136-145 [facility] Comment on above: Order Comment: Reaso n for Exam Severe obesity (BMI >= 40);PCOS (polycystic ovarian syndrome NON FASTING Performed By: #### A POB, LIPA #### [facility] , #### CMP, A1C [facility] eA #### [address] Urea nitrogen [Mass/volume] in Serum or PlasmaOrdered By: Celio Mullins on 07-01-2023 Urea nitrogen [Mass/Vol] 16 mg/dL Normal 7-25 [facility] Comment on above: Order Comment: Reaso n for Exam Severe obesity (BMI >= 40);PCOS (polycystic ovarian syndrome NON FASTING Performed By: #### A POB, LIPA #### [facility] , #### CMP, A1C [facility] eA #### [place] [address] [place] COVID Quick Testingon 2022 Result Negative [email or web address] Other SARS-CoV-2 (COVID-19) RNA NA A+probe Ql (Resp)on 02-11-2023 SARS-CoV-2 (COVID-19) RNA SURI+probe Ql (Unsp spec) Negative [email or web address] Other DHEA-SULFATEon 01-01-2023 DHEA-Sulfate 95.3 ug/dL Normal 84.8-378.0 [facility] Comment on above: Performed By: #### D RIMA #### [facility] [address] [place] [address] Dr. Kaushik Palomares FSHon 01-01-2023 FSH 4.6 mIU/mL Normal [facility] Comment on above: Result Comment: Adul t Female: Follicular phase 3.5 - 12.5 Ovulation phase 4.7 - 21.5 Luteal phase 1.7 - 7.7 Postmenopausal 25.8 - 134.8 Performed By: #### C BC #### [facility] [address] [place] [address] Dr. Kaushik Palomares LUTEINIZING HORMONE (LH)on 0 01-01-2023 LH 3.5 mIU/mL Normal [facility] Comment on above: Result Comment: Adul t Female: Follicular phase 2.4 - 12.6 Ovulation phase 14.0 - 95.6 Luteal phase 1.0 - 11.4 Postmenopausal 7.7 - 58.5 Performed By: #### L BCL #### [facility] [address] [place] [address] Dr. Kaushik Palomares CBC AUTO DIFFon 12-31-2022 BASO # 0.1 103/ul Normal 0.0-0.1 [facility] Comment on above: Performed By: #### C BC #### [facility] [address] [place] [address] Dr. Kaushik Palomares Basophils/100 WBC (Bld) 0.8 % Normal 0.2-2.0 [facility] Comment on above: Performed By: #### C BC #### [facility] [address] [place] [address] Dr. Kaushik Palomares EO # 0.1 103/ul Normal 0.0-0.7 [facility] Comment on above: Performed By: #### C BC #### [facility] [address] [place] [address] Dr. Kaushik Palomares Eosinophils/100 WBC (Bld) 1.7 % Normal 0.9-7.0 [facility] Comment on above: Performed By: #### C BC #### [facility] [address] [place] [address] Dr. Kaushik Palomares Erythrocyte distribution width (RBC) [Ratio] 12.8 % Normal 11.0-15.0 [facility] Comment on above: Performed By: #### C BC #### [facility] [address] [place] [address] Dr. Kaushik Palomares Hematocrit (Bld) [Volume fraction] 33.0 % Critically low 36.0-48.0 [facility] Comment on above: Performed By: #### C BC #### [facility] [address] [place] [address] Dr. Kaushik Palomares Hemoglobin (Bld) [Mass/Vol] 11.0 g/dL Critically low 12.0-16.0 [facility] Comment on above: Performed By: #### C BC #### [facility] [address] [place] [address] Dr. Kaushik Palomares IG # 0.03 10e3/ul Normal 0.00-0.03 [facility] Comment on above: Performed By: #### C BC #### [facility] [address] [place] [address] Dr. Kaushik Palomares IG % 0.5 % Normal 0.0-0.5 [facility] Comment on above: Performed By: #### C BC #### [facility] [address] [place] [address] Dr. Kaushik Palomares LYMPH # 2.4 103/ul Normal 1.2-3.8 [facility] Comment on above: Performed By: #### C BC #### [facility] [address] [place] [address] Dr. Kaushik Palomares Lymphocytes/100 WBC (Bld) 36.6 % Normal 20.5-60.0 [facility] Comment on above: Performed By: #### C BC #### [facility] [address] [place] [address] Dr. Kaushik Palomares MANUAL DIFF REQ NO Normal [facility] Comment on above: Performed By: #### C BC #### [facility] [address] [place] [address] Dr. Kaushik Palomares MCH (RBC) [Entitic mass] 29.0 pg Normal 26.7-34.0 [facility] Comment on above: Performed By: #### C BC #### [facility] [address] [place] [address] Dr. Kaushik Palomares MCHC (RBC) [Mass/Vol] 33.3 g/dL Normal 29.9-35.2 [facility] Comment on above: Performed By: #### C BC #### [facility] [address] [place] [address] Dr. Kaushik Palomares MCV (RBC) [Entitic vol] 87.1 fL Normal 81.0-99.0 [facility] Comment on above: Performed By: #### C BC #### [facility] [address] [place] [address] Dr. Kaushik Palomares MONO # 0.2 103/ul Critically low 0.3-0.8 [facility] Comment on above: Performed By: #### C BC #### [facility] [address] [place] [address] Dr. Kaushik Palomares Monocytes/100 WBC (Bld) 3.6 % Normal 1.7-12.0 [facility] Comment on above: Performed By: #### C BC #### [facility] [address] [place] [address] Dr. Kaushik Palomares NEUT # 3.7 103/ul Normal 1.4-6.5 [facility] Comment on above: Performed By: #### C BC #### [facility] [address] [place] [address] Dr. Kaushik Palomares Neutrophils/100 WBC (Bld) 56.8 % Normal 43.0-75.0 [facility] Comment on above: Performed By: #### C BC #### [facility] [address] [place] [address] Dr. Kaushik Palomares Platelet mean volume (Bld) [Entitic vol] 9.8 fL Normal 9.5-13.5 [facility] Comment on above: Performed By: #### C BC #### [facility] [address] [place] [address] Dr. Kaushik Palomares PLT 234 103/ul Normal 150-450 [facility] Comment on above: Performed By: #### C BC #### [facility] [address] [address] [address] Kaushik Palomares RBC 3.79 106/ul Critically low 4.20-5.40 [facility] Comment on above: Performed By: #### C BC #### [facility] [address] [place] [address] Dr. Kaushik Palomares WBC 6.5 103/ul Normal 4.0-11.0 [facility] Comment on above: Performed By: #### C BC #### [facility] [address] [place] [address] Dr. Kaushik Palomares FREE T4on 12-31-2022 Free T4 [Mass/Vol] 0.79 ng/dL Normal 0.76-1.46 [facility] Comment on above: Performed By: #### F T4 #### [facility] [address] [place] [address] Dr. Kaushik Palomares GLYCOHEMOGLOBIN A1Con 2022 ADA RECOMMENDATION SEE BELOW Normal [facility] Comment on above: Result Comment: ADA RECOMMENDED LIMIT 4.0 - 6.0 ADA THERAPEUTIC TARGET < 7.0 ACTION SUGGESTED > 7.0 Performed By: #### A 1C #### [facility] [address] [place] [address] Dr. Kaushik Palomares Glucose [Mass/Vol] 111 mg/dL Normal [facility] Comment on above: Performed By: #### A 1C #### [facility] [address] [place] [address] Dr. Kaushik Palomares HbA1c (Bld) [Mass fraction] 5.5 % Normal 4.5-6.2 [facility] Comment on above: Performed By: #### A 1C #### [facility] [address] [place] [address] Dr. Kaushik Palomares TSHon 12-31-2022 TSH 1.114 uIU/mL Normal 0.358-3.740 [facility] Comment on above: Performed By: #### C #### [facility] [address] [address] [address] Kaushik Palomares US PELVIS AND TRANSVAGon [...] SUGEY MACDONALD Date: 2022-11-26 15:58 Normal [facility] XR SACRUM_COCCYXon 3 XR SACRUM_COCCYX EXAMINATION: [...] authenticated by: SUGEY MACDONALD Date: 2022-11-08 10:01 [facility] PAP ACOG PANEL 2: 30 to 65on 11-05-2022 . . Normal [facility] Comment on above: Result Comment: Perf ormed at: WB Performed By: #### C BC #### [facility] [address] [address] [address] Kaushik Palomares Age Gdln ACOG Testing 30-65 Normal [facility] Comment on above: Performed By: #### C BC #### [facility] [address] [address] [address] Kaushik Palomares DIAGNOSIS: Comment [facility] Comment on above: Result Comment: NEGA TIVE FOR INTRAEPITHELIAL LESION OR MALIGNANCY. Performed at: WB Performed By: #### C BC #### [facility] [address] [address] [address] Kaushik Palomares HPV Aptima Negative Normal Negative [facility] Comment on above: Result Comment: This nucleic acid amplification test detects fourteen high-risk HPV types (16,18,31,33,35,39,45,51,52,56,58,59,66,68) without differentiation. Performed at: =G Performed By: #### C BC #### [facility] [address] [address] [address] Kaushik Palomares HPV Genotype Reflex Comment Normal [facility] Comment on above: Result Comment: Crit eria not met, HPV Genotype not performed. Performed at: WB Performed By: #### C BC #### [facility] [address] [address] [address] Kaushik Palomares Methodology: Comment Normal [facility] Comment on above: Result Comment: This liquid based ThinPrep(R) pap test was screened with the use of an image guided system. Performed at: WB Performed By: #### C BC #### [facility] [address] [place] [address] Dr. Kaushik Palomares Note: Comment Normal [facility] Comment on above: Result Comment: [...] WB Performed By: #### C BC #### [facility] [address] [place] [address] Dr. Kaushik Palomares Performed by: Comment Normal [facility] Comment on above: Result Comment: Robi Graham, Biometrics Experimentalist (ASCP) Performed at: WB Performed By: #### C BC #### [facility] [address] [place] [address] Dr. Kaushik Palomares Specimen adequacy: Comment Normal [facility] Comment on above: Result Comment: Sati sfactory for evaluation. Endocervical and/or squamous metaplastic cells (endocervical component) are present. Performed at: WB Performed By: #### C BC #### [facility] [address] [place] [address] Dr. Kaushik Palomares COVID/FLU RT-PCRon 2 SARS-CoV-2 (COVID-19) RNA SURI+probe Ql (Unsp spec) Negative [email or web address] Other COVID/FLU RT-PCR Negative [employer] Other HCG-BETA SUBUNIT QUANTon hCG,Beta Subunit,Qnt,Serum <1 Normal [facility] Comment on above: Result Comment: Fema le (Non-) 0 - 5 (Postmenopausal) 0 - 8 . Female () Weeks of Gestation 3 6 - 71 4 10 - 750 5 217 - 7138 6 158 - 21413 7 [phone] 8 81218 -[phone] 9 37217 -[phone] 10 37089 -[phone] 12 59495 -[phone] 14 99287 - 93932 15 17897 - 64675 16 5592 - 49954 17 2854 - 99599 18 8242 - 03861 Rg ECLIA methodology Performed By: #### H CGSUB #### [facility] [address] [place] [address] Dr. Kaushik Palomares T4 LABCORPon 01-22-2022 T4 [Mass/Vol] 7.8 ug/dL Normal 4.5-12.0 [facility] Comment on above: Performed By: #### T 4LC #### [facility] [address] [place] [address] Dr. Kaushik Palomares CBC AUTO DIFFon 01-21-2022 BASO # 0.1 103/ul Normal 0.0-0.1 [facility] Comment on above: Performed By: #### C BC #### [facility] [address] [place] [address] Dr. Kaushik Palomares Basophils/100 WBC (Bld) 0.6 % Normal 0.2-2.0 [facility] Comment on above: Performed By: #### C BC #### [facility] [address] [place] [address] Dr. Kaushik Palomares EO # 0.1 103/ul Normal 0.0-0.7 [facility] Comment on above: Performed By: #### C BC #### [facility] [address] [place] [address] Dr. Kaushik Palomares Eosinophils/100 WBC (Bld) 1.2 % Normal 0.9-7.0 [facility] Comment on above: Performed By: #### C BC #### [facility] [address] [place] [address] Dr. Kaushik Palomares Erythrocyte distribution width (RBC) [Ratio] 13.3 % Normal 11.0-15.0 [facility] Comment on above: Performed By: #### C BC #### [facility] [address] [place] [address] Dr. Kaushik Palomares Hematocrit (Bld) [Volume fraction] 40.0 % Normal 36.0-48.0 [facility] Comment on above: Performed By: #### C BC #### [facility] [address] [place] [address] Dr. Kaushik Palomares Hemoglobin (Bld) [Mass/Vol] 12.7 g/dL Normal 12.0-16.0 [facility] Comment on above: Performed By: #### C BC #### [facility] [address] [place] [address] Dr. Kaushik Palomares IG # 0.02 10e3/ul Normal 0.00-0.03 [facility] Comment on above: Performed By: #### C BC #### [facility] [address] [place] [address] Dr. Kaushik Palomares IG % 0.2 % Normal 0.0-0.5 [facility] Comment on above: Performed By: #### C BC #### [facility] [address] [place] [address] Dr. Kaushik Palomares LYMPH # 3.0 103/ul Normal 1.2-3.8 [facility] Comment on above: Performed By: #### C BC #### [facility] [address] [place] [address] Dr. Kaushik Palomares Lymphocytes/100 WBC (Bld) 32.9 % Normal 20.5-60.0 [facility] Comment on above: Performed By: #### C BC #### [facility] [address] [place] [address] Dr. Kaushik Palomares MANUAL DIFF REQ NO Normal [facility] Comment on above: Performed By: #### C BC #### [facility] [address] [place] [address] Dr. Kaushik Palomares MCH (RBC) [Entitic mass] 28.5 pg Normal 26.7-34.0 [facility] Comment on above: Performed By: #### C BC #### [facility] [address] [place] [address] Dr. Kaushik Palomares MCHC (RBC) [Mass/Vol] 31.8 g/dL Normal 29.9-35.2 [facility] Comment on above: Performed By: #### C BC #### [facility] [address] [place] [address] Dr. Kaushik Palomares MCV (RBC) [Entitic vol] 89.7 fL Normal 81.0-99.0 [facility] Comment on above: Performed By: #### C BC #### [facility] [address] [place] [address] Dr. Kaushik Palomares MONO # 0.5 103/ul Normal 0.3-0.8 [facility] Comment on above: Performed By: #### C BC #### [facility] [address] [place] [address] Dr. Kaushik Palomares Monocytes/100 WBC (Bld) 5.1 % Normal 1.7-12.0 [facility] Comment on above: Performed By: #### C BC #### [facility] [address] [place] [address] Dr. Kaushik Palomares NEUT # 5.4 103/ul Normal 1.4-6.5 [facility] Comment on above: Performed By: #### C BC #### [facility] [address] [place] [address] Dr. Kaushik Palomares Neutrophils/100 WBC (Bld) 60.0 % Normal 43.0-75.0 [facility] Comment on above: Performed By: #### C BC #### [facility] [address] [place] [address] Dr. Kaushik Palomares Platelet mean volume (Bld) [Entitic vol] 9.3 fL Critically low 9.5-13.5 [facility] Comment on above: Performed By: #### C BC #### [facility] [address] [place] [address] Dr. Kaushik Palomares PLT 221 103/ul Normal 150-450 [facility] Comment on above: Performed By: #### C BC #### [facility] [address] [place] [address] Dr. Kaushik Palomares RBC 4.46 106/ul Normal 4.20-5.40 [facility] Comment on above: Performed By: #### C BC #### [facility] [address] [place] [address] Dr. [place] Palomares WBC 9.0 103/ul Normal 4.0-11.0 [facility] Comment on above: Performed By: #### C BC #### [facility] [address] [place] [address] Dr. Kaushik Palomares GLYCOHEMOGLOBIN A1Con 2021 ADA RECOMMENDATION SEE BELOW Normal [facility] Comment on above: Result Comment: ADA RECOMMENDED LIMIT 4.0 - 6.0 ADA THERAPEUTIC TARGET < 7.0 ACTION SUGGESTED > 7.0 Performed By: #### C BC #### [facility] [address] [address] [address] Kaushik Palomares Glucose [Mass/Vol] 94 mg/dL Normal [facility] Comment on above: Performed By: #### C BC #### [facility] [address] [address] [address] Kaushik Palomares HbA1c (Bld) [Mass fraction] 4.9 % Normal 4.5-6.2 [facility] Comment on above: Performed By: #### C BC #### [facility] [address] [address] [address] Kaushik Palomares LIPID PROFILEon 01-21-2022 CHOL-HDL RATIO NORM SEE BELOW Normal [facility] Comment on above: Result Comment: 3.3 - 4.4 LOW RISK 4.4 - 7.1 AVERAGE RISK 7.1 - 11.0 MODERATE RISK >11.0 HIGH RISK Performed By: #### L IPID, CMP, TSH #### [facility] [address] [address] [address] Kaushik Palomares Cholesterol [Mass/Vol] 168 mg/dL Normal <=200 Th [facility] Comment on above: Performed By: #### L IPID, CMP, TSH #### [facility] [address] [address] [address] Kaushik Palomares Cholesterol in HDL [Mass/Vol] 41 mg/dL Normal 40-60 [facility] Comment on above: Performed By: #### L IPID, CMP, TSH #### [facility] [address] [address] [address] Kaushik Palomares Cholesterol in LDL [Mass/Vol] 90.2 mg/dL Normal [facility] Comment on above: Performed By: #### L IPID, CMP, TSH #### [facility] [address] [address] [address] Kaushik Palomares Cholesterol.total/Mali sterol in HDL [Mass ratio] 4.1 {ratio} Normal [facility] Comment on above: Performed By: #### L IPID, CMP, TSH #### [facility] [address] [address] [address] Kaushik Palomares HDL NORMAL > or = 60 mg/dl - LO W CARDIOVASCULAR RISK <40 mg/dl - HIGH CARDIOVASCULAR RISK Normal [facility] Comment on above: Performed By: #### L IPID, CMP, TSH #### [facility] [address] [address] [address] Kaushik Palomares LDL CALC NORMAL SEE BELOW Normal [facility] Comment on above: Result Comment: <100 mg/dl OPTIMAL 100 - 129 mg/dl NEAR OR ABOVE OPTIMAL 130 - 159 mg/dl BORDERLINE HIGH 160 - 189 mg/dl HIGH >190 mg/dl VERY HIGH Performed By: #### L IPID, CMP, TSH #### [facility] [address] [address] [address] Kaushik Palomares Triglyceride [Mass/Vol] 184 mg/dL Critically high <=150 [facility] Comment on above: Performed By: #### L IPID, CMP, TSH #### [facility] [address] [address] [address] Kaushik Palomares VLDL CALC 36.8 mg/dL Normal [facility] Comment on above: Performed By: #### L IPID, CMP, TSH #### [facility] [address] [address] [address] Kaushik Palomares MICROALBUMIN, RAND URon 06-0 mALB 2.0 mg/L Normal <=30.0 [facility] Comment on above: Performed By: #### C BC #### [facility] [address] [address] [address] Kaushik Palomares PROF 14(COMP METB)on 022 Albumin [Mass/Vol] 3.7 g/dL Normal 3.4-5.0 [facility] Comment on above: Performed By: #### L IPID, CMP, TSH #### [facility] [address] [address] [address] Kaushik Palomares Albumin/Globulin [Mass ratio] 0.9 {ratio} Normal [facility] Comment on above: Performed By: #### L IPID, CMP, TSH #### [facility] [address] [address] [address] Kaushik Palomares ALP [Catalytic activity/Vol] 53 U/L Normal 46-116 [facility] Comment on above: Performed By: #### L IPID, CMP, TSH #### [facility] [address] [address] [address] Kaushik Palomares ALT [Catalytic activity/Vol] 44 U/L Normal 14-59 [facility] Comment on above: Performed By: #### L IPID, CMP, TSH #### [facility] [address] [address] [address] Kaushik Palomares Anion gap [Moles/Vol] 6.8 mmol/L Normal [facility] Comment on above: Performed By: #### L IPID, CMP, TSH #### [facility] [address] [place] [address] Dr. Kaushik Palomares AST [Catalytic activity/Vol] 22 U/L Normal 15-37 [facility] Comment on above: Performed By: #### L IPID, CMP, TSH #### [facility] [address] [place] [address] Dr. Kaushik Palomares Bilirubin [Mass/Vol] 0.3 mg/dL Normal 0.2-1.0 [facility] Comment on above: Performed By: #### L IPID, CMP, TSH #### [facility] [address] [place] [address] Dr. Kaushik Palomares Calcium [Mass/Vol] 9.2 mg/dL Normal 8.5-10.1 [facility] Comment on above: Performed By: #### L IPID, CMP, TSH #### [facility] [address] [place] [address] Dr. Kaushik Palomares Chloride [Moles/Vol] 102 mmol/L Normal 98-107 [facility] Comment on above: Performed By: #### L IPID, CMP, TSH #### [facility] [address] [place] [address] Dr. Kaushik Palomares CO2 [Moles/Vol] 31.4 mmol/L Normal 21.0-32.0 [facility] Comment on above: Performed By: #### L IPID, CMP, TSH #### [facility] [address] [address] [address] Kaushik Palomares Creatinine [Mass/Vol] 0.71 mg/dL Normal 0.55-1.02 [facility] Comment on above: Performed By: #### L IPID, CMP, TSH #### [facility] [address] [address] [address] Kaushik Palomares EGFR-AF BULGARIAN >60 Normal >=60 [facility] Comment on above: Performed By: #### L IPID, CMP, TSH #### [facility] [address] [address] [address] Kaushik Palomares EGFR-NON AF BULGARIAN >60 Normal >=60 [facility] Comment on above: Performed By: #### L IPID, CMP, TSH #### [facility] [address] [address] [address] Kaushik Palomares Globulin (S) [Mass/Vol] 4.2 g/dL Normal [facility] Comment on above: Performed By: #### L IPID, CMP, TSH #### [facility] [address] [address] [address] Kaushik Palomares Glucose [Mass/Vol] 93 mg/dL Normal 74-106 [facility] Comment on above: Performed By: #### L IPID, CMP, TSH #### [facility] [address] [address] [address] Kaushik Palomares Potassium [Moles/Vol] 4.2 mmol/L Normal 3.5-5.1 [facility] Comment on above: Performed By: #### L IPID, CMP, TSH #### [facility] [address] [address] [address] Kaushik Palomares Protein [Mass/Vol] 7.9 g/dL Normal 6.4-8.2 [facility] Comment on above: Performed By: #### L IPID, CMP, TSH #### [facility] [address] [address] [address] Kaushik Palomares Sodium [Moles/Vol] 136 mmol/L Normal 136-145 [facility] Comment on above: Performed By: #### L IPID, CMP, TSH #### [facility] [address] [address] [address] Kaushik Palomares Urea nitrogen [Mass/Vol] 11.0 mg/dL Normal 7.0-18.0 [facility] Comment on above: Performed By: #### L IPID, CMP, TSH #### [facility] [address] [address] [address] Kaushik Palomares Urea nitrogen/Creatinine [Mass ratio] 15.5 mg/mg Normal [facility] Comment on above: Performed By: #### L IPID, CMP, TSH #### [facility] [address] [place] [address] Dr. Kaushik Palomares TSHon 01-21-2022 TSH 1.298 uIU/mL Normal 0.358-3.740 [facility] Comment on above: Performed By: #### C BC #### [facility] [address] [place] [address] Dr. Kaushik Palomares TSH RANGE SEE BELOW Normal [facility] Comment on above: Result Comment: <0.3 4 UIU/ml HYPERTHYROID 0.34-5.60 UIU/ml EUTHYROID >5.60 UIU/ml HYPOTHYROID Performed By: #### C BC #### [facility] [address] [place] [address] Dr. Kaushik Palomares COVID Quick Testingon 2020 Result Negative [email or web address] Other Quick Strepon 06-17-2021 S. pyogenes Org specific cx Ql (Throat) Negative [employer] Other Quick Strep [email or web address] Other Urinalysis - AUTOMATEDon Appearance (U) cloudy [employer] Other Bilirubin Ql (U) Negative [employer] Other Color (U) yellow [email or web address] Other Glucose Ql (U) Negative [employer] Other Hemoglobin Ql (U) large [employer] Other Ketones Ql (U) Negative [employer] Other Leukocyte esterase Test strip Ql (U) trace [email or web address] Other Nitrite Ql (U) Positive [employer] Other pH (U) 5.5 [pH] [employer] Other Protein Ql (U) 100 [employer] Other Specific gravity (U) [Rel density] 1.025 [employer] Other Urobilinogen (U) [Mass/Vol] 0.2 mg/dL [facility] [employer] Other Urinalysis - AUTOMATED No [employer] Other Urine Cultureon 05-31-2021 Urine Culture >100,000 [employer] Other Urine Culture <16 [email or web address] Other Urine Culture >16 [email or web address] Other Urine Culture <4 [employer] Other Urine Culture 8 [employer] Other Urine Culture <2 [email or web address] Other Urine Culture <1 [email or web address] Other Urine Culture >2 [email or web address] Other Urine Culture <0.5 [employer] [facility] [employer] Other Urine Culture >8 [email or web address] Other Urine Culture >4 [email or web address] Other Urine Culture <32 [email or web address] Other Urine Culture >2/38 [facility] [employer] Other Vital Signs Date Time Vital Sign Value 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 04-21-2024 14:31-0400 Body height 162.56 cm LINEN SORTERJosé Miguel Marc Work Phone: [facility] 04-21-2024 14:31-0400 Body mass index (BMI) [Ratio] 55 kg/m2 LINEN SORTERJosé Miguel Marc Work Phone: [facility] 04-21-2024 14:31-0400 Body weight 145.6 kg LINEN SORTERJosé Miguel Keaenr Work Phone: [facility] 04-21-2024 14:31-0400 Diastolic blood pressure 88 mm[Hg] LINEN SORTERJosé Miguel Keaner Work Phone: [facility] 04-21-2024 14:31-0400 Heart rate 111 /min LINEN SORTERoJsé Miguel Marc Work Phone: [facility] 04-21-2024 14:31-0400 SaO2% (BldA) [Mass fraction] 97 % LINEN SORTERJosé Miguel Marc Work Phone: [facility] 04-21-2024 14:31-0400 Systolic blood pressure 136 mm[Hg] ROSITA Marc Work Phone: [facility] 11-26-2023 08:40-0400 Body height 162.56 cm LINEN SORTERJosé Miguel Parksacher Work Phone: [facility] 11-26-2023 08:40-0400 Body mass index (BMI) [Ratio] 52.9 kg/m2 ROSITA Parksacher Work Phone: [facility] 11-26-2023 08:40-0400 Body weight 139.79 kg LINEN SORTERJosé Miguel Keaner Work Phone: [facility] 11-26-2023 08:40-0400 Diastolic blood pressure 79 mm[Hg] LINEN SORTERJosé Miguel Barclayrbacher Work Phone: [facility] 11-26-2023 08:40-0400 Heart rate 97 /min LINEN SORTERJosé Miguel ThaoManisha Denyrbacher Work Phone: [facility] 11-26-2023 08:40-0400 SaO2% (BldA) [Mass fraction] 99 % LINEN SORTERJosé Miguel ThaoManisha Denyrbacher Work Phone: [facility] 11-26-2023 08:40-0400 Systolic blood pressure 131 mm[Hg] LINEN SORTERJosé Miguel ThaoManisha Charlyacher Work Phone: [facility] 11-03-2023 14:06-0400 Body height 162.56 cm LINEN SORTERJosé Miguel Parksacher Work Phone: [facility] 11-03-2023 14:06-0400 Body mass index (BMI) [Ratio] 53.1 kg/m2 LINEN SORTERJosé Miguel ThaoManisha Charlyacher Work Phone: [facility] 11-03-2023 14:06-0400 Body weight 140.61 kg LINEN SORTER Manisha Denyrbacher Work Phone: [facility] 11-03-2023 14:06-0400 Diastolic blood pressure 78 mm[Hg] LINEN SORTERJosé Miguel Barclayrbacher Work Phone: [facility] 11-03-2023 14:06-0400 Heart rate 105 /min LINEN SORTERJosé Miguel ColladoManisha Denyrbacher Work Phone: [facility] 11-03-2023 14:06-0400 SaO2% (BldA) [Mass fraction] 98 % LINEN SORTERJosé Miguel ColladoManisha Denyrbacher Work Phone: [facility] 11-03-2023 14:06-0400 Systolic blood pressure 118 mm[Hg] LINEN SORTERJosé Miguel Barclayrbacher Work Phone: [facility] 10-08-2023 10:50-0500 Body height 162.56 cm LINEN SORTERJosé Miguel Parksacher Work Phone: [facility] 10-08-2023 10:50-0500 Body weight 139.25 kg LINEN SORTERJosé Miguel Barclayrbacher Work Phone: [facility] 10-01-2023 09:20-0500 Body height 162.56 cm LINEN SORTERJosé Miguel Barclayrbacher Work Phone: [facility] 10-01-2023 09:20-0500 Body mass index (BMI) [Ratio] 53.6 kg/m2 LINEN SORTERJosé Miguel Parksacher Work Phone: [facility] 10-01-2023 09:20-0500 Body weight 141.69 kg LINEN SORTERJosé Miguel Barclayrbacher Work Phone: [facility] 10-01-2023 09:20-0500 Diastolic blood pressure 75 mm[Hg] LINEN SORTERJosé Miguel Barclayrbacher Work Phone: [facility] 10-01-2023 09:20-0500 Heart rate 85 /min LINEN SORTERJosé Miguel Parksacher Work Phone: [facility] 10-01-2023 09:20-0500 Respiratory rate 18 /min LINEN SORTERJosé Miguel Parksacher Work Phone: [facility] 10-01-2023 09:20-0500 SaO2% (BldA) [Mass fraction] 99 % LINEN SORTERJosé Miguel Barclayrbacher Work Phone: [facility] 10-01-2023 09:20-0500 Systolic blood pressure 123 mm[Hg] LINEN SORTERJosé Miguel Barclayrbacher Work Phone: [facility] 09-03-2023 08:00-0500 Body height 162.56 cm LINEN SORTERJosé Miguel Parksacher Work Phone: [facility] 09-03-2023 08:00-0500 Body weight 138.79 kg LINEN SORTER Manisha Marc Work Phone: [facility] 09-03-2023 08:00-0500 Diastolic blood pressure 78 mm[Hg] LINEN SORTER Manisha Charlyacher Work Phone: [facility] 09-03-2023 08:00-0500 Systolic blood pressure 118 mm[Hg] LINEN SORTER Manisha Parksacher Work Phone: [facility] 08-19-2023 09:45-0500 Body height 162.56 cm Nely Cruz Other [facility] 08-13-2023 14:00-0500 Body height 162.56 cm Manisha Marc Other [facility] 08-13-2023 14:00-0500 Body mass index (BMI) [Ratio] 52.35 kg/m2 Manisha Marc Other [facility] [employer] Other 08-13-2023 14:00-0500 Body weight 138.35 kg Manisha Marc Other [email or web address] Other 08-13-2023 14:00-0500 Body weight 138.34 kg ROSITA Marc Work Phone: [facility] 08-13-2023 14:00-0500 Diastolic blood pressure 80 mm[Hg] Manisha Marc Other [facility] 08-13-2023 14:00-0500 SaO2% (BldA) [Mass fraction] 98 % Manisha Marc Other [facility] [employer] Other 08-13-2023 14:00-0500 Systolic blood pressure 114 mm[Hg] Manisha Marc Other [facility] 07-15-2023 07:45-0500 Body height 162.56 cm Celio Mullins Other [facility] 07-15-2023 07:45-0500 Body mass index (BMI) [Ratio] 52.98 kg/m2 Celio Mullins Other [email or web address] Other 07-15-2023 07:45-0500 Body weight 140.03 kg Celio Mullins Other [email or web address] Other 07-15-2023 07:45-0500 Body weight 140.02 kg ROSITA Marc Work Phone: [facility] 07-15-2023 07:45-0500 Diastolic blood pressure 66 mm[Hg] Celio Mullins Other [facility] 07-15-2023 07:45-0500 Respiratory rate 18 /min Celio Mullins Other [email or web address] Other 07-15-2023 07:45-0500 SaO2% (BldA) [Mass fraction] 98 % Celio Mullins Other [email or web address] Other 07-15-2023 07:45-0500 Systolic blood pressure 112 mm[Hg] Celio Mullins Other [facility] 07-07-2023 11:15-0500 Body height 162.56 cm Michelle Ernandez Other [facility] 07-07-2023 11:15-0500 Body mass index (BMI) [Ratio] 52.69 kg/m2 Michelle Ernandez Other [email or web address] Other 07-07-2023 11:15-0500 Body temperature 98 [degF] Michelle Ernandez Other [email or web address] Other 07-07-2023 11:15-0500 Body weight 139.26 kg Michelle Oma Other [email or web address] Other 07-07-2023 11:15-0500 Body weight 139.25 kg ROSITA Manisha Marc Work Phone: [facility] 07-07-2023 11:15-0500 Respiratory rate 20 /min Michelle Oma Other [email or web address] Other 07-07-2023 11:15-0500 SaO2% (BldA) [Mass fraction] 98 % Michelle Oma Other [email or web address] Other 06-29-2023 10:20-0500 Body height 162.56 cm Michelle Oma Other [email or web address] Other 06-29-2023 10:20-0500 Body mass index (BMI) [Ratio] 53.03 kg/m2 Michelle Oma Other [email or web address] Other 06-29-2023 10:20-0500 Body temperature 99.7 [degF] Michelle Oma Other [email or web address] Other 06-29-2023 10:20-0500 Body weight 140.16 kg Michelle Oma Other [email or web address] Other 06-29-2023 10:20-0500 Respiratory rate 19 /min Michelle Oma Other [email or web address] Other 06-29-2023 10:20-0500 SaO2% (BldA) [Mass fraction] 98 % Michelle Oma Other [email or web address] Other 06-11-2023 15:30-0400 Body height 162.56 cm Manisha Barclayfani Other [email or web address] Other 06-11-2023 15:30-0400 Body mass index (BMI) [Ratio] 53.79 kg/m2 Manisha Tari Other [email or web address] Other 06-11-2023 15:30-0400 Body weight 142.16 kg Manisha Charlymarycarmentad Other [employer] Other 06-11-2023 15:30-0400 Diastolic blood pressure 62 mm[Hg] Manisha Tari Other [employer] Other 06-11-2023 15:30-0400 SaO2% (BldA) [Mass fraction] 99 % Manisha Tari Other [email or web address] Other 06-11-2023 15:30-0400 Systolic blood pressure 126 mm[Hg] Manisha Tari Other [email or web address] Other 05-06-2023 13:40-0400 Body height 162.56 cm Casandra Hassan Other [email or web address] Other 05-06-2023 13:40-0400 Body mass index (BMI) [Ratio] 53.65 kg/m2 Casandra Hassan Other [email or web address] Other 05-06-2023 13:40-0400 Body temperature 98.4 [degF] Casandra Hassan Other [email or web address] Other 05-06-2023 13:40-0400 Body weight 141.8 kg Casandra Sonya Other [employer] Other 05-06-2023 13:40-0400 Diastolic blood pressure 81 mm[Hg] Casandra Tesfayeley Other [employer] Other 05-06-2023 13:40-0400 Respiratory rate 18 /min Casandra Tesfayeley Other [employer] Other 05-06-2023 13:40-0400 SaO2% (BldA) [Mass fraction] 95 % Casandra Tesfayeley Other [employer] Other 05-06-2023 13:40-0400 Systolic blood pressure 134 mm[Hg] Casandramila Hassan Other [email or web address] Other 04-30-2023 08:30-0400 Body height 162.56 cm Manisha Marc Other [employer] Other 04-30-2023 08:30-0400 Body mass index (BMI) [Ratio] 53.86 kg/m2 Manisha Marc Other [email or web address] Other 04-30-2023 08:30-0400 Body weight 142.34 kg Manisha Marc Other [employer] Other 04-30-2023 08:30-0400 Diastolic blood pressure 82 mm[Hg] Manisha Marc Other [employer] Other 04-30-2023 08:30-0400 SaO2% (BldA) [Mass fraction] 100 % Manisha Marc Other [employer] Other 04-30-2023 08:30-0400 Systolic blood pressure 120 mm[Hg] Manisha Tari Other [employer] Other 04-29-2023 07:00-0400 Body height 162.56 cm Nely Peas-Corpt Other [employer] Other 04-29-2023 07:00-0400 Body mass index (BMI) [Ratio] 54.41 kg/m2 Nely Peas-Corpt Other [email or web address] Other 04-29-2023 07:00-0400 Body weight 143.79 kg Nely Fitt Other [employer] Other 03-25-2023 13:45-0400 Body height 162.56 cm [employer] Other [employer] Other 03-25-2023 13:45-0400 Body mass index (BMI) [Ratio] 55.45 kg/m2 [employer] Other [employer] Other 03-25-2023 13:45-0400 Body weight 146.56 kg [employer] Other [employer] Other 03-25-2023 13:45-0400 Diastolic blood pressure 57 mm[Hg] [employer] Other [employer] Other 03-25-2023 13:45-0400 Respiratory rate 18 /min [employer] Other [employer] Other 03-25-2023 13:45-0400 SaO2% (BldA) [Mass fraction] 97 % [employer] Other [employer] Other 03-25-2023 13:45-0400 Systolic blood pressure 106 mm[Hg] Celio Mullins Other [email or web address] Other 02-11-2023 12:15-0400 Body height 163.83 cm Casandra Hassan Other [employer] Other 02-11-2023 12:15-0400 Body mass index (BMI) [Ratio] 54.88 kg/m2 Casandra Hassan Other [email or web address] Other 02-11-2023 12:15-0400 Body temperature 98 [degF] Casandra Hassan Other [employer] Other 02-11-2023 12:15-0400 Body weight 147.33 kg Casandra Hassan Other [employer] Other 02-11-2023 12:15-0400 Diastolic blood pressure 85 mm[Hg] Casandra Hassan Other [employer] Other 02-11-2023 12:15-0400 Respiratory rate 18 /min Casandra Hassan Other [email or web address] Other 02-11-2023 12:15-0400 SaO2% (BldA) [Mass fraction] 98 % Casandra Hassan Other [employer] Other 02-11-2023 12:15-0400 Systolic blood pressure 128 mm[Hg] Casandra Hassan Other [employer] Other 07-13-2022 11:15-0500 Body height 163.83 cm Michelle Ernandez Other [employer] Other 07-13-2022 11:15-0500 Body mass index (BMI) [Ratio] 51.54 kg/m2 Michelle Oma Other [employer] Other 07-13-2022 11:15-0500 Body temperature 96.6 [degF] Michelle Oma Other [employer] Other 07-13-2022 11:15-0500 Body weight 138.35 kg Michelle Oma Other [employer] Other 07-13-2022 11:15-0500 Respiratory rate 18 /min Michelle Oma Other [employer] Other 07-13-2022 11:15-0500 SaO2% (BldA) [Mass fraction] 96 % Michelle Oma Other [employer] Other 07-06-2021 13:00-0500 Body height 163.83 cm Michelle Oma Other [employer] Other 07-06-2021 13:00-0500 Body mass index (BMI) [Ratio] 49 kg/m2 Michelle Oma Other [employer] Other 07-06-2021 13:00-0500 Body temperature 97.5 [degF] Michelle Moa Other [employer] Other 07-06-2021 13:00-0500 Body weight 131.54 kg Michelle Oma Other [employer] Other 07-06-2021 13:00-0500 SaO2% (BldA) [Mass fraction] 96 % Michelle Haynesmond Other [employer] Other 06-17-2021 11:00-0400 Body height 163.83 cm Michelle Oma Other [employer] Other 06-17-2021 11:00-0400 Body mass index (BMI) [Ratio] 49.68 kg/m2 Michelle Oma Other [employer] Other 06-17-2021 11:00-0400 Body temperature 98.3 [degF] Michelle Oma Other [employer] Other 06-17-2021 11:00-0400 Body weight 133.36 kg Michelle Oma Other [employer] Other 06-17-2021 11:00-0400 Respiratory rate 18 /min Michelle Oma Other [employer] Other 06-17-2021 11:00-0400 SaO2% (BldA) [Mass fraction] 96 % Michelle Oma Other [employer] Other 05-31-2021 13:50-0400 Body height 163.83 cm Mcihelle Oma Other [employer] Other 05-31-2021 13:50-0400 Body mass index (BMI) [Ratio] 50.36 kg/m2 Michelle Oma Other [employer] Other 05-31-2021 13:50-0400 Body temperature 97.8 [degF] Michelle Oma Other [employer] Other 05-31-2021 13:50-0400 Body weight 135.17 kg Michelle Ernandez Other [facility] [employer] Other 05-31-2021 13:50-0400 Diastolic blood pressure 90 mm[Hg] Michelle Ernandez Other [employer] Other 05-31-2021 13:50-0400 Respiratory rate 18 /min Michelle Ernandez Other [email or web address] Other 05-31-2021 13:50-0400 SaO2% (BldA) [Mass fraction] 98 % Michelle Ernandez Other [facility] [employer] Other 05-31-2021 13:50-0400 Systolic blood pressure 150 mm[Hg] Michelle Ernandez Other [employer] Other Encounters Encounter Date Encounter Type Care Provider Facility Start: 05-13-2024 ambulatory Edward Richey acility:[facility] Start: 04-21-2024 End: 04-21-2024 ambulatory ROSITA Marc Work Phone: [facility] Work Phone: Start: 04-21-2024 End: 04-21-2024 Patient encounter procedure ROSITA Marc Work Phone: [facility] Work Phone: Start: 04-12-2024 Non-patient / Non-visit ROSITA Marc Work Phone: [facility] [employer] Work Phone: Start: 04-03-2024 Registered Recurring ROSITA Marc Work Phone: [facility] Start: 03-16-2024 End: 03-16-2024 ambulatory MELA ANDERSON Not Available Start: 01-19-2024 End: 01-19-2024 [facility] Start: 01-01-2024 Registered Recurring ROSITA Marc Work Phone: [facility] Start: 11-26-2023 End: 11-26-2023 ambulatory LINEN SORTERJosé Miguel Marc Work Phone: [facility] Work Phone: Start: 11-26-2023 End: 11-26-2023 Patient encounter procedure ROSITA Marc Work Phone: [facility] Work Phone: Start: 11-03-2023 End: 11-03-2023 ambulatory ROSITA Marc Work Phone: [facility] Work Phone: Start: 11-03-2023 End: 11-03-2023 Patient encounter procedure LINEN SORTERJosé Miguel Marc Work Phone: [facility] Work Phone: Start: 11-03-2023 End: 11-03-2023 ambulatory TOBIAS WATTERSZIO Not Available Start: 10-30-2023 Non-patient / Non-visit ROSITA Marc Work Phone: [facility] Work Phone: Start: 10-08-2023 End: 10-08-2023 Patient encounter procedure ROSITA Marc Work Phone: [facility] [place] Work Phone: Start: 10-08-2023 End: 10-08-2023 ambulatory ROSITA Marc Work Phone: [facility] Work Phone: Start: 10-06-2023 Non-patient / Non-visit ROSITA Marc Work Phone: [facility] Work Phone: Start: 10-06-2023 End: 10-06-2023 ambulatory [facility] Start: 10-01-2023 End: 10-01-2023 Patient encounter procedure ROSITA Marc Work Phone: [facility] Work Phone: Start: 10-01-2023 End: 10-01-2023 ambulatory ROSITA Marc Work Phone: [facility] Work Phone: Start: 09-10-2023 Registered Recurring ROSITA Marc Work Phone: [facility] [employer] Start: 09-08-2023 End: 09-08-2023 ambulatory [facility] Start: 09-03-2023 End: 09-03-2023 Patient encounter procedure ROSITA Marc Work Phone: [facility]- Start: 08-19-2023 IBT FOR OBESITY GROU P 2-10 30M Nely Cruz [facility] Start: 08-19-2023 End: 08-19-2023 ambulatory Manisha Marc [facility] [employer] Other Start: 08-19-2023 Registered Recurring ROSITA Marc Work Phone: [facility] Work Phone: Start: 08-19-2023 End: 08-19-2023 Patient encounter procedure ROSITA Marc Work Phone[facility] Work Phone: Start: 08-14-2023 Registered Recurring LINEN SORTER Layla reyna Tari Work Phone: [facility] [employer] Start: 08-13-2023 End: 08-13-2023 ambulatory Manisha Tari Other [email or web address] Other Start: 08-13-2023 Office outpatient visit 15 minutes Manisha Marc [facility] Start: 08-13-2023 End: 08-13-2023 Patient encounter procedure LINEN SORTERJosé Miguel Marc Work Phone: [facility] Work Phone: Start: 07-24-2023 End: 07-24-2023 ambulatory MELA ANDERSON Not Available Start: 07-21-2023 End: 07-21-2023 ambulatory Bud Combs MD Facility:[facility] Start: 07-19-2023 End: 07-19-2023 ambulatory ROSITA Thaonifer Tari Work Phone: [facility] Work Phone: Start: 07-19-2023 End: 07-19-2023 Patient encounter procedure ROSITA Manisha Tari Work Phone: [facility] [facility] Start: 07-15-2023 End: 07-15-2023 ambulatory Celio Mullins Other [email or web address] Other Start: 07-15-2023 Follow-up encounter Celio Mullins [facility] Start: 07-15-2023 End: 07-15-2023 Patient encounter procedure LINEN SORTERJosé Miguel ThaoManishaamita Marc Work Phone: [facility] Access [facility] Work Phone: Start: 07-07-2023 End: 07-07-2023 ambulatory Michelle Ernandez Other [email or web address] Other Start: 07-07-2023 Office outpatient visit 15 minutes Michelle Oma [facility] Start: 07-07-2023 End: 07-07-2023 Patient encounter procedure LINEN SORTERJosé Miguel Marc Work Phone: [facility] Work Phone: Start: 07-03-2023 Registered Recurring LINEN SORTERJosé Miguel Marc Work Phone: [facility] Start: 07-03-2023 End: 07-03-2023 Patient encounter procedure LINEN SORTERJosé Miguel Mrac Work Phone: [facility] [place] Work Phone: Start: 07-03-2023 End: 07-03-2023 ambulatory ROSITA Marc Work Phone: [facility] Work Phone: Start: 07-01-2023 End: 07-01-2023 Patient encounter procedure LINEN SORTERJosé Miguel Marc Work Phone: [facility] [place] Work Phone: Start: 07-01-2023 End: 07-01-2023 ambulatory Manisha Marc Facility:[facility] Start: 06-29-2023 End: 06-29-2023 ambulatory Michelle Oma Other [email or web address] Other Start: 06-29-2023 Office outpatient visit 15 minutes Michelle Oma [facility] Start: 06-17-2023 Registered Recurring ROSITA Marc Work Phone: [facility] Work Phone: Start: 06-11-2023 End: 06-11-2023 ambulatory Manisha Marc Other [email or web address] Other Start: 06-11-2023 Office outpatient visit 25 minutes Manisha Tari [facility] Start: 05-06-2023 End: 05-06-2023 ambulatory Casandramila Hassan Other [email or web address] Other Start: 05-06-2023 Office outpatient visit 10 minutes Casandra Hassan [facility] Start: 05-01-2023 End: 05-01-2023 ambulatory Manisha Tari Other [email or web address] Other Start: 05-01-2023 Telephone encounter Manisha Parksbrian desai [facility] Start: 04-30-2023 End: 04-30-2023 ambulatory Manisha Tari Other [email or web address] Other Start: 04-30-2023 Encounter for genera l adult medical examination without abnormal findings Manisha Tari [facility] Start: 04-30-2023 Periodic preventive med est patient 18-39 yrs Manisha Marc [facility] Start: 04-29-2023 ([facility]) N Initial Provider Nely Pe[facility] Start: 04-29-2023 End: 04-29-2023 ambulatory Nely Cruz Other [email or web address] Other Start: 03-25-2023 End: 03-25-2023 ambulatory Celio Mullins Other [email or web address] Other Start: 03-25-2023 Nutrition therapy Celio johns [facility] Start: 03-25-2023 Telephone encounter Celio guerrero [facility] Start: 03-14-2023 End: 03-14-2023 ambulatory Nely Cruz Other [email or web address] Other Start: 03-14-2023 Telephone encounter Nely Fitt [facility] Start: 02-11-2023 End: 02-11-2023 ambulatory Casandra Hassan Other [email or web address] Other Start: 02-11-2023 Office outpatient visit 15 minutes Casandra Hassan [facility] Start: 12-31-2022 End: 01-01-[address] TOBIAS OSCAR . Facility:[facility] Start: 11-26-2022 End: 11-27-[address] TOBIAS OSCAR . Facility:[facility] Start: 11-08-2022 End: 11-09-[address] BOOM ROD Facility:[facility] Start: 10-28-2022 End: 10-28-[address] TOBIAS OSCAR . Facility:[facility] Start: 07-13-2022 End: 07-13-2022 ambulatory Michelle Ernandez Other [email or web address] Other Start: 07-13-2022 Office outpatient visit 15 minutes Michelle Ernandez [facility] Start: 03-07-2022 End: 03-08-[address] BOOM ROD Facility:[facility] Start: 01-25-2022 Encounter for genera l adult medical examination without abnormal findings DR BOOM ROD [facility] Start: 01-21-2022 End: 01-22-[address] BOOM ROD Facility:[facility] Start: 01-21-2022 End: 01-22-2022 Encounter for general adult medical examination without abnormal findings DR BOOM ROD Facility:[facility] Start: 07-06-2021 End: 07-06-2021 ambulatory Michelle Ernandez Other [email or web address] Other Start: 07-06-2021 Office outpatient visit 15 minutes Michellenawaf Ernandez [facility] Start: 06-17-2021 Office outpatient visit 15 minutes Michlele Oma [facility] Start: 05-31-2021 Office outpatient visit 25 minutes Michelle Oma [facility] Start: 08-27-2018 End: 08-27-2018 ambulatory BRENT KINNEY Facility:[facility] Procedures Date Procedure Procedure Detail Performing Clinician Start: 10-08-2023 MRI of head LINEN SORTER [place] amita Marc Work Phone: Start: 05-31-2021 Piperacillin/tazobactam Michelle Oma Other Start: 08-27-2018 extraction, erupted tooth or exposed root (elevation and/or forceps removal) BRENT TROCONIS Start: 08-27-2018 removal of impacted tooth - soft tissue BRENT TROCONIS Start: 08-27-2018 Urine test visual color cmprsn meths BRENT TROCONIS Plan of Treatment Date Care Activity Detail Author Comprehensive metabo lic 2000 panel - Serum or Plasma [facility] enter Holter monitor study [facility] MR Unspecified body region [facility] Immunizations Immunization Date Immunization Notes Care Provider Fa cility 03-03-2021 Do not use COVID-19 Pfizer 2 dose Manisha Marc Other [facility] 02-10-2021 Do not use COVID-19 Pfizer 2 dose Manisha Marc Other [facility] 08-03-2018 Toradol per 15 mg Michelle Dym ond Other [email or web address] Other Payers Date Payer Category Payer Self-pay [id number] 2022 Self-pay [id number] 2022 Private Health Insurance 1991 Unknown [id number] 2.16.840.1.581125.3.579.2. 732 1991 Unknown [id number] 2.16.840.1.058533.3.579.2. 593 1991 Unknown [id number] 2.16.840.1.367586.3.579.2. 593 1991 Unknown [id number] 2.16.840.1.302699.3.579.2. 593 1991 Unknown [id number] 2.16.840.1.286665.3.579.2. 593 1991 Unknown [id number] 2.16.840.1.430502.3.579.2. 593 1991 Unknown [id number] 2.16.840.1.423910.3.579.2. 593 1991 Unknown [id number] 2.16.840.1.723477.3.579.2. 196 1991 Unknown [id number] 2.16.840.1.305525.3.579.2. 196 1991 Unknown [id number] 2.16.840.1.028446.3.579.2. 196 1991 Unknown [id number] 2.16.840.1.325447.3.579.2. 196 1991 Unknown [id number] 2.16.840.1.925741.3.579.2. 1259 1991 Unknown [id number] 2.16.840.1.608348.3.579.2. 1259 1991 Unknown [id number] 2.16.840.1.446445.3.579.2. 1259 1958 Medicaid [id number] 1959 Unknown [id number] [facility] [place] [id number] Unknown [id number] 2.16.840.1.092778.3.579.2. 531 Unknown [id number] 2.16.840.1.122987.3.579.2. 531 Unknown [id number] 2.16.840.1.256239.3.579.2. 531 Unknown [id number] 2.16.840.1.031743.3.579.2. 531 Unknown [id number] 2.16.840.1.813906.3.579.2. 531 Unknown [id number] 2.16.840.1.416920.3.579.2. 531 Unknown [id number] 2.16.840.1.717223.3.579.2. 531 Social History Date Type Detail Facility Unknown if ever smoked [email or web address] Other Sex Assigned At Sex Assigned At Bir th [email or web address] Other Start: 12-07-2021 End: 11-26-2023 Tobacco smoking status NHIS Never smoked tobacco (finding) [facility] Start: 1990 Sex Assigned At Female F [facility] Clinical Notes 05-31-2021 to 08-19-2023 [...] method for meal planning ; grocery shortcuts [facility] [employer] Other 12-27-2023 Evaluation note* Encounter Date Diagnosis [...] You have been given relevant education handouts. [email or web address] Other 11-28-2023 Evaluation note* Encounter Date Diagnosis [...] recognition software. Please excuse errors in mds nurse. Jun, Dietary surveillance and counseling (ICD-10 - [...] metformin 1000 mg total daily, managed by [employer] Jun, Asthma (ICD-10 - J45.909) Jun, Migraine (ICD-10 - G43.909) Jun, Primary hypertension (ICD-10 - I10) Currently on pharmacotherapy Potential for overtreatment given lightheadedness Jun, Other An additional 9 minutes was spent counseling the patient on behavior modification including proper nutrition and physical activity. [email or web address] Other 11-20-2023 Evaluation note* Encounter Date Diagnosis [...] until you feel better. You may take [id number] Imodium for diarrhea as needed. Avoid dairy foods as well as greasy fried foods. Follow-up with your physician if no improvement in 2 to 3 days. May return to work on Jun, Diarrhea, unspecified type (ICD-10 - R19.7) Diarrhea: adult home care material was printed [email or web address] Other 11-12-2023 Evaluation note* Encounter Date Diagnosis [...] to 3-day Jun, Bronchitis (ICD-10 - J40) [email or web address] Other 10-25-2023 Evaluation note* Encounter Date Diagnosis Assessment Notes Treatment Notes Treatment Clinical Notes May, Degenerative lumbar disc (ICD-10 - M51.36) L4-5 Pt would like a referral to pain management regarding her chronic back pain. Her last x-ray of the lumbar spine was completed 10/2022 at [facility]--reviewed and in scanned documents. Referral placed. May, [...] verbalized understanding and agreement with tx plan. 25 Oct, 2023 Bipolar 2 disorder (ICD-10 - F31.81) Referral placed to [facility] for medication mangement. [email or web address] Other 09-19-2023 Evaluation note* Encounter Date Diagnosis Assessment Notes Treatment Notes Treatment Clinical Notes Apr, Exposure to head lice (ICD-10 - Z20.7) Discussed with patient exam is without any signs of current lice infection. May return to work tomorrow. Patient completed next treatment yesterday. Patient verbalized understanding. [email or web address] Other 09-14-2023 Evaluation note* Encounter Date Diagnosis Assessment Notes Treatment Notes Treatment Clinical Notes Apr, Primary hypertension (ICD-10 - I10) [email or web address] Other 09-13-2023 Evaluation note* Encounter Date Diagnosis [...] (ICD-10 - R73.01) Will obtain records from [facility] for most recent labs. Patient is [...] Low back pain, unspecified (ICD-10 - M54.50) [email or web address] Other 09-12-2023 Evaluation note* Encounter Date Diagnosis [...] 2) Aim for < 45 g carb/meal [email or web address] Other 08-08-2023 Evaluation note* Encounter Date Diagnosis [...] recognition software. Please excuse errors in mds nurse. Mar, Dietary surveillance and counseling (ICD-10 - [...] as sweet tea, replace ice cream with Amharic yogurt, use protein shake in the a.m. [...] with the patient, and documenting clinical information. [email or web address] Other 06-27-2023 Evaluation note* Encounter Date Diagnosis [...] 7 days, sooner if significantly worsening symptoms. [email or web address] Other 11-26-2022 Evaluation note* Encounter Date Diagnosis [...] 3 days. Off work today and tomorrow [email or web address] Other 11-19-2021 Evaluation note* Encounter Date Diagnosis [...] Patient care instructions given in writting by CDC Care At Home document. [email or web address] Other 10-31-2021 Evaluation note* Encounter Date Diagnosis [...] Patient care instructions given in writting by CDC Care At Home document. [email or web address] [facility] [employer] Other 10-14-2021 Evaluation note* Encounter Date Diagnosis Assessment Notes Treatment Notes Treatment Clinical Notes May, Dysuria (ICD-10 - R30.0) May, Urinary tract infection, site not specified (ICD-10 - N39.0) May, Hematuria, unspecified (ICD-10 - R31.9) [email or web address] Other Evaluation noteNo [facility] [employer] Other evalupfavc noteNo assessment information available [facility] Work Phone: evaluation note* Diagnosis Onset Date Resolution Status Dietary surveillance and counseling acute Exercise counseling acute Food insecurity acute PCOS (polycystic ovarian syndrome) acute Prediabetes acute Severe obesity (BMI >= 40) a [facility] Work Phone: evaluation note* Diagnosis Onset Date Resolution Status Dietary surveillance and counseling acute Exercise counseling acute Food insecurity acute PCOS (polycystic ovarian syndrome) acute Prediabetes acute Severe obesity (BMI >= 40) a cute Lightheadedness acute Menorrhagia acute Palpitations acute [facility] Work Phone: evaluation note* Diagnosis Onset Date Resolution Status Dietary surveillance and counseling acute Exercise counseling acute Food insecurity acute PCOS (polycystic ovarian syndrome) acute Prediabetes acute Severe obesity (BMI >= 40) a cute Lightheadedness acute Menorrhagia acute Palpitations acute Dietary surveillance and counseling acute Exercise counseling acute Severe obesity (BMI >= 40) a [facility] Work Phone: Evaluation note* Diagnosis Onset Date Resolution Status Lightheadedness acute Menorrhagia acute Palpitations acute Dietary surveillance and counseling acute Exercise counseling acute Severe obesity (BMI >= 40) a [facility] Work Phone: evaluation note* Diagnosis Onset Date Resolution Status Aphasia acute History of seizures acute Memory loss acute Migraine acute [facility] Work Phone: history general Narrative [...] History Hospitalized for blood l oss 2010 [email or web address] Other history general Narrative - Reported* Type [...] History Hospitalized for blood l oss 2010 [email or web address] Other history general Narrative - Reported* Type [...] History Hospitalized for blood l oss 2010 [email or web address] Other history general Narrative - Reported* Type [...] History Hospitalized for blood l oss 2010 [email or web address] Other history general Narrative - Reported* Type [...] History Hospitalized for blood l oss 2010 [email or web address] Other [employer] general Narrative - Reported* Type Description Date [...] History Hospitalized for blood l oss 2010 [email or web address] Other [employer] general Narrative - Reported* Type Description Date [...] History Hospitalized for blood l oss 2010 [email or web address] Other Reason for referral (narrative)* Reason *06/20 would sherif ke a referral to pscyiatrist -- was recently diagnosed with bipolar and would like medication management. Diagnosis 1 Bipolar 2 disorder ( F31.81) Referral Organization [facility] Damion tsang Referring Provider First Name Manisha Referring Provider Last Name Tari Referring Provider Specialty Nurse Luist ernesto Referred Organization [facility] Referred Address [address],[place], [place],[address] Referred Provider Specialty Psychiatry Referral Priority Routine General Notes Paola Henderson 01:25:30 PM >received today, not sure if [facility] does medication management, waiting for notes to be locked Paola Henderson 06/13/2023 10:34:39 AM >notes locked, referral faxed Clinical Notes p: [id number] f: [id number] [facility] Reason *FU 06/20 would li yaneli a referral to pain management for other options for pain control for back pain Diagnosis 1 Degenerative lumbar disc (M51.36) Referral Organization [facility] Damon tsang Referring Provider First Name Manisha Referring Provider Last Name Tari Referring Provider Specialty Nurse Noble orozco Referred Organization [facility] Referred Provider Yrn Parsons Referred Address [address] [place], [place],[address] Referred Provider Specialty Pain Medicin e Referral Priority Routine General Notes Paola Henderson 01:21:23 PM >received today, waiting for notes to be locked Paola Henderson 06/13/2023 10:25:26 AM >notes locked, referral faxed Clinical Notes f: [id number] [email or web address] Other Summary Purpose Family History No Family History Records Found Relationship Condition Age at Onset Recorded Date/T mariajose father Hypertension Unknown grandparent Heart disease Unknown Unknown Hypertension Unknown grandparent Hypertension Unknown Not Specified Heart disease Unknown Malignant neoplasm of breast Unknown History of stroke Unknown Malignant neoplasm Unknown sister Family history of mental disorder Unknown Relationship Condition Age at Onset Recorded Date/T mariajose father Hypertension Unknown grandparent Heart disease Unknown Unknown Hypertension Unknown grandparent Hypertension Unknown mother Heart disease Unknown Malignant neoplasm of breast [...] (BMI >= 40) Chief Complaint heart palpitations BH Reason for Visit Lightheadedness Menorrhagia Palpitations Dietary surveillance and counseling Exercise counseling Severe obesity (BMI >= 40) Chief Complaint BH Memory Concerns Reason for Visit Aphasia History of seizures Memory loss Migraine Additional Source Comments INFORMATION SOURCE (unrecogn ized section and content) DATE CREATED AUTHOR 08/27/2021 [employer] DATE CREATED AUTHOR AUTHOR'S ORGANIZ ATION 01/01/2023 [facility] DATE CREATED AUTHOR AUTHOR'S ORGANIZ ATION 01/30/2024 [facility] DATE CREATED AUTHOR AUTHOR'S ORGANIZ ATION 03/18/2024 [facility] DATE CREATED AUTHOR AUTHOR'S ORGANIZ ATION 05/22/2024 [facility] REASON FOR VISIT (unrecogniz ed [...] Member Role Status Dates Manisha Marc APRN [employer]OUNDER [employer] CEO-C Primary Care Provider Active Team Status: Active Member Role Status Dates Manisha Marc APRN FOUNDER [employer] CEO-C Primary Care Provider, Attending Provider Active Team Status: Inactive Member Role Status Dates Manisha Marc APRN [employer]OUNDER [employer]-C Primary Care Provider Active Celio Mullins DO Attending Provider Active Team Status: Inactive Member Role Status Dates Manisha Marc APRN FOUNDER [employer] CEO-C Primary Care Provider Active Clinton Frazier MD Attending Provider Active Team Status: Inactive Member Role Status Dates Manisha Marc APRN FOUNDER [employer] CEO-C Primary Care Provider Active Start: July 032022 End: July 03, 2023 Celio Mullins DO Attending Provider Active St art: July 03, 2023 End: July 03, 2023 Team Status: Active Member Role Status Dates Manisha Marc APRN FOUNDER [employer] CEO-C Primary Care Provider Active Start: July 032022 Edward Gilmore MD Attending Provider Active Start: July 03, 2023 Team Status: Inactive Member Role Status Dates Michelle Ernandez [employer]OUNDER [employer] CEO-C Attending Provider Active S tart: July 07, 2023 End: July 07, 2023 Team Status: Inactive Member Role Status Dates Celio Mullins DO Attending Provider Active St art: July 15, 2023 End: July 15, 2023 Team Status: Inactive Member Role Status Dates Manisha Marc APRN FOUNDER [employer] CEO-C Primary Care Provider Active Start: July End: July 19, 2023 Clinton Frazier MD Attending Provider Active Start: July 19, 2023 End: July 19, 2023 Team Status: Inactive Member Role Status Dates Manisha Marc APRN FOUNDER [employer] CEO-C Attending Provider Act rafal Start: August 13, 2023 End: August 13, 2023 Team Status: Inactive Member Role Status Dates Nely Cage [facility] Attending Provider Active Start: August 19, 2023 End: August 19, 2023 Team Status: Active Member Role Status Dates Manisha Marc APRN FOUNDER [employer] CEO-C Primary Care Provider, Attending Provider Active Start: August 19, 2023 Team Status: Inactive Member Role Status Dates Manisha Marc APRN FOUNDER [employer] CEO-C Attending Provider Act rafal Start: September 03, 2023 End: September 03, 2023 Team Status: Inactive Member Role Status Dates Manisha Marc APRN FOUNDER [employer] CEO-C Primary Care Provider Active Start: October 012023 End: October 01, 2023 Celio Mullins DO Attending Provider Active St art: October 01, 2023 End: October 01, 2023 Team Status: Active Member Role Status Dates Manisha Marc APRN FOUNDER [employer] CEO-C Primary Care Provider Active Start: August 142022 Edward Gilmore MD Attending Provider Active Start: August 14, 2023 Team Status: Active Member Role Status Dates Manisha Marc APRN FOUNDER [employer] CEO-C Primary Care Provider, Attending Provider Active Start: October 06, 2023 Team Status: Inactive Member Role Status Dates Manisha Marc APRN FOUNDER [employer] CEO-C Primary Care Provider Active Start: October 082023 End: October 08, 2023 Akil Cox DO Attending Provider Active Start: October 08, 2023 End: October 08, 2023 Team Status: Active Member Role Status Dates Manisha Marc APRN FOUNDER [employer] CEO-C Primary Care Provider, Attending Provider Active Start: October 30, 2023 Team Status: Inactive Member Role Status Dates Manisha Marc APRN FOUNDER [employer] CEO-C Primary Care Provider, Attending Provider Active Start: November 03, 2023 End: November 03, 2023 Team Status: Active Member Role Status Dates Manisha Marc APRN FOUNDER [employer] CEO-C Primary Care Provider Active Start: August Edward Gilmore MD Attending Provider Active Start: September 10, 2023 Team Status: Inactive Member Role Status Dates Manisha Marc LINEN SORTER [employer]OUNDER [employer] CEO-C Primary Care Provider Active Start: November 26, 2023 End: November 26, 2023 Celio Mullins DO Attending Provider Active St art: November 26, 2023 End: November 26, 2023 Team Status: Active Member Role Status Dates Manisha Marc APRN FOUNDER [employer] CEO-C Primary Care Provider Active Start: January 01, 2024 Edward Gilmore MD Attending Provider Active Start: January 01, 2024 Team Status: Active Member Role Status Dates Manisha Marc APRN FOUNDER [employer] CEO-C Primary Care Provider Active Start: April 03, 2024 Edward Gilmore MD Attending Provider Active Start: April 03, 2024 Team Status: Active Member Role Status Dates Manisha Marc APRN FOUNDER & CEO-C Primary Care Provider Active Start: April 12, 2024 Jaymiehannah Barbozated Griffin DO Attending Provider Active Start: April 12, 2024 Team Status: Inactive Member Role Status Dates Manisha Marc APRN FOUNDER & CEO-C Primary Care Provider, Attending Provider Active Start: April 21, 2024 End: April 21, 2024 Goals (unrecognized section and content) Goals [...] BE BASED ON THE PRIMARY CLINICAL RECORDS. [employer] [facility]. provides no warranty or guarantee of the accuracy or completeness of information in this document.
== END 2024-05-26 08:37 | disposition home or self-care (01) ==
LOC: MRI 08:36
PROVIDERS: PCP Nurse Practitioner Family; Visit Provider Nurse Practitioner Family
DX: R41.3 Other amnesia (principal); Z87.898 Personal history of other specified conditions; G43.909 Migraine, unspecified, not intractable, without status migrainosus; R47.01 Aphasia
CPT/HCPCS: 70553; A9575

== ENCOUNTER 2024-06-07 15:06 | Outpatient (OUT) | payer OTHER, SELFPAY ==
--- OUTSIDE RECORDS SUMMARY | 2024-06-07 15:22 | XMS_ITS | CCD ---
Author Organization [facility] Care Team Providers Care Supervisor Winding Department Name Role Phone BRENT KINNEY Referring Unavailable BRENT KINNEY Attending Unavailable BRENT KINNEY Admitting Unavailable Michelle Ernandez Unavailable VIOLA, DR NUR Consulting Unavailable TULSA, DR NUR Admitting Unavailable HOUSE, DR NUR [...] Unavailable Celio Mullins Unavailable Manisha Marc Unavailable [phone] ROSITA Marc Primary Care Provider ROSITA Marc Attending Provider DO Celio Mullins Attending Provider ROSITA Marc Primary Care Provider MD Clinton Frazier Attending Provider ROSITA Marc Attending Provider ROSITA Marc Primary [...] [place] Attending Provider Manisha Marc Attending Unavailable Rohrbacher, Manisha Admitting [...] Unavailable Ivon Mullinsten M Attending Unavailable Denyrbacher, [facility] Care Unavailable Akil Cox Attending Unavailab Akil Avila Admitting Unavailab le Denyrbacher, [facility] Unavailable Allergies Allergy Classification Reported Allergen(s) Allergy Type Date of Onset Reaction(s) Facility (20 sources) Amoxicillin; Translations: [AMOXICILLIN] Drug Allergy 07-08-[address] [facility] Repository (10 sources) Cefaclor; Translations: [CEFACLOR] Drug Allergy 04-14-20 15 Unknown Reaction, [facility] Repository (19 sources) Erythromycin; Translations: [ERYTHROMYCIN] Drug Allergy 04-14-20 15 [facility] Repository (19 sources) Cefaclor; Translations: [Ceclor] Drug Allergy 04-17-20 15 [facility] Repository (9 sources) Erythromycin Drug Allergy 04-17-20 15 Unknown Reaction, [facility] Repository (9 sources) Cephalosporins (Antibiotic); Translations: [Cephalosporins] Allergy to substance 12-10-19 22 Unknown Reaction, Rash [facility] (3 sources) Lactulose; Translations: [lactulose] Drug Allergy 02-12-20 20 Unknown Reaction [facility] (1 source) Erythromycin Drug Allergy 04-21-20 24 [facility] Repository Medications Current Medications Medication Drug Class(es) Dates Sig (Normalized) Sig (Original) [id number] 200 actuat albuterol 0.09 mg/actuat metered dose [...] Basophils (Bld) [#/Vol] 0.1 10 3/uL 0.0-0.1 [facility] Basophils/100 WBC Auto (Bld) on 04-12-2024 Basophils/100 WBC (Bld) 0.6 % 0.2-2.0 [facility] Buprenorphine [Presence] in Urineon 04-12-2024 Buprenorphine Ql (U) Negative NEGATIVE [facility] Comment on above: DRUG CLASS TEST SYST EM CUT-OFF CONCENTRATIONS ARE ASFOLLOWS:AMP (Amphetamine): 500 ng/mLBAR (Barbiturates): 200 ng/mLBZO (Benzodiazepines): 150 ng/mLBUP (Buprenorphine): 10 ng/mLCOC (Cocaine): 150 ng/mLmAMP (Methamphetamine): 500 ng/mLMTD (Methadone): 200 ng/mLOPI (Opiates): 100 ng/mLOXY (Oxycodone): 100 ng/mLPCP (Phencyclidine): 25 ng/mLTHC (Cannabinoids): 50 ng/mLTCA (Trycyclic Antidepressants): 300 ng/mL Eosinophils/100 WBC Auto (Bl d)on 04-12-2024 Eosinophils/100 WBC (Bld) 1.0 % 0.9-7.0 [facility] Erythrocyte distribution wid th Auto (RBC) [Ratio]on 04-12-2024 Erythrocyte distribution width (RBC) [Ratio] 17.4 % High 11.0-15.0 [facility] Estimated glomerular filtrat ion rate (GFR) non- Americanon 04-12-2024 GFR/1.73 sq M.predicted among non-blacks MDRD (S/P/Bld) [Vol rate/Area] mL/min/{1.73_m2} >=60 [facility] Globulin Calc (S) [Mass/Vol] on 04-12-2024 Globulin (S) [Mass/Vol] 4.1 g/dL [facility] HCG ( test) IA.rapi d Ql (U)on 04-12-2024 HCG ( test) Ql (U) Negative NEGATIVE [facility] Hematocrit Auto (Bld) [Volum e fraction]on 04-12-2024 Hematocrit (Bld) [Volume fraction] 37.9 % 36.0-48.0 [facility] Hemoglobin [Mass/volume] in Bloodon 04-12-2024 Hemoglobin (Bld) [Mass/Vol] 11.6 g/dL Low 12.0-16.0 [facility] Laboratory - Chemistry and C hemistry - challengeon 04-12-2024 Albumin [Mass/Vol] 3.3 g/dL Low 3.4-5.0 [facility] ALP [Catalytic activity/Vol] 75 U/L 46-116 [facility] ALT [Catalytic activity/Vol] 36 U/L 14-59 [facility] AST [Catalytic activity/Vol] 19 U/L 15-37 [facility] Bilirubin [Mass/Vol] 0.3 mg/dL 0.2-1.0 [facility] Calcium [Mass/Vol] 8.6 mg/dL 8.5-10.1 [facility] Chloride [Moles/Vol] 101 mmol/L 98-107 [facility] CO2 [Moles/Vol] 28.7 mmol/L 21.0-32.0 [facility] Creatinine [Mass/Vol] 0.70 mg/dL 0.55-1.02 [facility] GFR/1.73 sq M.predicted MDRD (S/P/Bld) [Vol rate/Area] mL/min/{1.73_m2} >=60 [facility] Glucose [Mass/Vol] 103 mg/dL 74-106 [facility] Potassium [Moles/Vol] 3.7 mmol/L 3.5-5.1 [facility] Protein [Mass/Vol] 7.4 g/dL 6.4-8.2 [facility] Sodium [Moles/Vol] 136 mmol/L 136-145 [facility] Urea nitrogen [Mass/Vol] 10.0 mg/dL 7.0-18.0 [facility] Urea nitrogen/Creatinine [Mass ratio] 14.3 mg/mg [facility] Bilirubin Ql (U) Negative NEGATIVE [facility] Glucose (U) [Mass/Vol] Negative NEGATIVE [facility] Ketones Ql (U) Negative NEGATIVE [facility] pH (U) 6.0 [pH] 5.0-9.0 [facility] Specific gravity (U) [Rel density] >=1.030 Abnormal 1.005-1.025 [facility] Urobilinogen Qn (U) 0.2 {Tamiko'U}/dL 0.2-1.0 [facility] Laboratory - Drug toxicology on 04-12-2024 Amphetamines Ql (U) Negative NEGATIVE [facility] Benzodiazepines Ql (U) Negative NEGATIVE [facility] Cocaine Ql (U) Negative NEGATIVE [facility] Opiates Ql (U) Negative NEGATIVE [facility] Phencyclidine Ql (U) Negative NEGATIVE [facility] Laboratory - Hematology and Cell countson 04-12-2024 Immature granulocytes/100 WBC (Bld) 0.3 % 0.0-0.5 [facility] Laboratory - Specimen inform ationon 04-12-2024 Appearance (U) CLEAR CLEAR [facility] Color (U) YELLOW YELLOW [facility] Laboratory - Urinalysison Leukocyte esterase Test strip Ql (U) Negative NEGATIVE [facility] Mucus Ql (Urine sed) TRACE Abnormal NONE SEEN [facility] Nitrite Ql (U) Negative NEGATIVE [facility] Protein Ql (U) Negative NEG/TRACE [facility] Leukocytes [#/volume] correc carmelita for nucleated erythrocytes in Blood by Automated counon 04-12-2024 WBC corrected for nucl RBC Auto (Bld) [#/Vol] 9.9 10 3/uL 4.0-11.0 [facility] Lymphocytes Auto (Bld) [#/Vo l]on 04-12-2024 Lymphocytes (Bld) [#/Vol] 3.5 10 3/uL 1.2-3.8 [facility] Lymphocytes/100 WBC Auto (Bl d)on 04-12-2024 Lymphocytes/100 WBC (Bld) 35.5 % 20.5-60.0 [facility] MCH Auto (RBC) [Entitic mass ]on 04-12-2024 MCH (RBC) [Entitic mass] 24.5 pg Low 26.7-34.0 [facility] MCHC Auto (RBC) [Mass/Vol]on 04-12-2024 MCHC (RBC) [Mass/Vol] 30.6 g/dL 29.9-35.2 [facility] MCV Auto (RBC) [Entitic vol] on 04-12-2024 MCV (RBC) [Entitic vol] 80.1 fL Low 81.0-99.0 [facility] Methadone [Presence] in Urin e by Screen methodon 04-12-2024 Methadone Screen Ql (U) Negative NEGATIVE [facility] Monocytes Auto (Bld) [#/Vol] on 04-12-2024 Monocytes (Bld) [#/Vol] 0.5 10 3/uL 0.3-0.8 [facility] Monocytes/100 WBC Auto (Bld) on 04-12-2024 Monocytes/100 WBC (Bld) 4.7 % 1.7-12.0 [facility] Neutrophils Auto (Bld) [#/Vo l]on 04-12-2024 Neutrophils (Bld) [#/Vol] 5.7 10 3/uL 1.4-6.5 [facility] Neutrophils/100 WBC Auto (Bl d)on 04-12-2024 Neutrophils/100 WBC (Bld) 57.9 % 43.0-75.0 [facility] No Panel Informationon 04-12 Acetaminophen Level <2.0 ug/mL Low 10.0-30.0 [facility] Eosinophils # (Auto) 0.1 10 3/uL 0.0-0.7 [facility] Ethyl Alcohol Level <3 mg/dL [facility] Comment on above: NOTE: 80 mg/dl is th e legal limit for a blood alcohol level Immature Granulocyte # (Auto) 0.03 10 3/uL 0.00-0.03 [facility] Salicylates Level <2.8 mg/dL <=19.9 [facility] Urine Bacteria SMALL #/HPF Abnormal NONE SEEN [facility] Urine Barbiturates Screen Negative NEGATIVE [facility] Urine Culture Reflexed YES [facility] Urine Marijuana (THC) Screen Negative NEGATIVE [facility] Urine Methamphetamines Screen Negative NEGATIVE [facility] Urine Occult Blood Negative NEGATIVE [facility] Urine Other Casts NONE SEEN #/LPF NONE SEEN [facility] Urine Other Crystals None Seen #/HPF None Seen [facility] Urine RBC 0-2 #/HPF 0-2 [facility] Urine Squamous Epithelial Cells FEW #/LPF Abnormal NONE/RARE [facility] Urine Transitional Epithelial Cells RARE #/LPF Abnormal NONE SEEN [facility] Urine WBC 2-5 #/HPF Abnormal NONE SEEN [facility] Platelet mean volume Auto (B ld) [Entitic vol]on 04-12-2024 Platelet mean volume (Bld) [Entitic vol] 10.2 fL 9.5-13.5 [facility] Platelets Auto (Bld) [#/Vol] on 04-12-2024 Platelets (Bld) [#/Vol] 299 10 3/uL 150-450 [facility] RBC Auto (Bld) [#/Vol]on RBC (Bld) [#/Vol] 4.73 10 6/uL 4.20-5.40 [facility] Serum or plasma albumin/glob ulin mass ratioon 04-12-2024 Albumin/Globulin [Mass ratio] 0.8 {ratio} [facility] Serum or plasma anion gap de terminationon 04-12-2024 Anion gap [Moles/Vol] 10.0 mmol/L [facility] Urine tricyclic antidepressa nt measurementon 04-12-2024 Tricyclic antidepressants (U) [Mass/Vol] Negative NEGATIVE [facility] oxyCODONE+oxyMORphone [Prese nce] in Urine by Screen methodon 04-12-2024 oxyCODONE+oxyMORphone Screen Ql (U) Negative NEGATIVE [facility] Basophils Auto (Bld) [#/Vol] on 11-03-2023 Basophils (Bld) [#/Vol] 0.0 10 3/uL 0.0-0.1 [facility] Basophils/100 WBC Auto (Bld) on 11-03-2023 Basophils/100 WBC (Bld) 0.5 % 0.2-2.0 [facility] Eosinophils/100 WBC Auto (Bl d)on 11-03-2023 Eosinophils/100 WBC (Bld) 1.4 % 0.9-7.0 [facility] Erythrocyte distribution wid th Auto (RBC) [Ratio]on 11-03-2023 Erythrocyte distribution width (RBC) [Ratio] 16.3 % 11.0-15.0 [facility] Estimated glomerular filtrat ion rate (GFR) non- Americanon 11-03-2023 GFR/1.73 sq M.predicted among non-blacks MDRD (S/P/Bld) [Vol rate/Area] mL/min/{1.73_m2} >=60 [facility] Globulin Calc (S) [Mass/Vol] on 11-03-2023 Globulin (S) [Mass/Vol] 4.0 g/dL [facility] Hematocrit Auto (Bld) [Volum e fraction]on 11-03-2023 Hematocrit (Bld) [Volume fraction] 26.1 % 36.0-48.0 [facility] Hemoglobin [Mass/volume] in Bloodon 11-03-2023 Hemoglobin (Bld) [Mass/Vol] 7.8 g/dL 12.0-16.0 [facility] Human papilloma virus 16+18+ 31+33+35+39+45+51+52+56+58+59+66+68 DNA [Presence] in [place] 11-03-2023 HPV 16+18+31+33+35+39+45+51 +52+56+58+59+66+68 DNA Probe+sig amp Ql (Cvx) Negative Negative [facility] Comment on above: This nucleic acid am plification test detects fourteen high-risk HPV types (16,18,31,33,35,39,45,51,52,56,58,59,66,68)without differentiation.Performed at: = - [facility] [id number] Director: Mnose Cardona MD, Phone: [phone] at: [facility] [id number] Director: Monse Cardona MD, Phone: [phone] Iron binding capacity [Mass/ volume] in Serum or Plasmaon 11-03-2023 Iron binding capacity [Mass/Vol] 512.0 ug/dL 250.0-450.0 [facility] Iron saturation [Mass Fracti on] in Serum or Plasmaon 11-03-2023 Iron saturation [Mass fraction] 2.7 % [facility] Laboratory - Chemistry and C hemistry - challengeon 11-03-2023 Albumin [Mass/Vol] 3.1 g/dL 3.4-5.0 [facility] ALP [Catalytic activity/Vol] 63 U/L 46-116 [facility] ALT [Catalytic activity/Vol] 29 U/L 14-59 [facility] AST [Catalytic activity/Vol] 18 U/L 15-37 [facility] Bilirubin [Mass/Vol] 0.2 mg/dL 0.2-1.0 [facility] Calcium [Mass/Vol] 8.7 mg/dL 8.5-10.1 [facility] Chloride [Moles/Vol] 102 mmol/L 98-107 [facility] CO2 [Moles/Vol] 27.6 mmol/L 21.0-32.0 [facility] Creatinine [Mass/Vol] 0.70 mg/dL 0.55-1.02 [facility] Ferritin [Mass/Vol] 6.0 ng/mL 8.0-252.0 [facility] GFR/1.73 sq M.predicted MDRD (S/P/Bld) [Vol rate/Area] mL/min/{1.73_m2} >=60 [facility] Glucose [Mass/Vol] 103 mg/dL 74-106 [facility] Iron [Mass/Vol] 14.0 ug/dL 50.0-170.0 [facility] Potassium [Moles/Vol] 3.8 mmol/L 3.5-5.1 [facility] Protein [Mass/Vol] 7.1 g/dL 6.4-8.2 [facility] Sodium [Moles/Vol] 139 mmol/L 136-145 [facility] Urea nitrogen [Mass/Vol] 11.0 mg/dL 7.0-18.0 [facility] Urea nitrogen/Creatinine [Mass ratio] 15.7 mg/mg [facility] Laboratory - Hematology and Cell countson 11-03-2023 Immature granulocytes/100 WBC (Bld) 0.4 % 0.0-0.5 [facility] Leukocytes [#/volume] correc carmelita for nucleated erythrocytes in Blood by Automated counon 11-03-2023 WBC corrected for nucl RBC Auto (Bld) [#/Vol] 7.4 10 3/uL 4.0-11.0 [facility] Lymphocytes Auto (Bld) [#/Vo l]on 11-03-2023 Lymphocytes (Bld) [#/Vol] 2.5 10 3/uL 1.2-3.8 [facility] Lymphocytes/100 WBC Auto (Bl d)on 11-03-2023 Lymphocytes/100 WBC (Bld) 33.6 % 20.5-60.0 [facility] MCH Auto (RBC) [Entitic mass ]on 11-03-2023 MCH (RBC) [Entitic mass] 24.8 pg 26.7-34.0 [facility] MCHC Auto (RBC) [Mass/Vol]on 11-03-2023 MCHC (RBC) [Mass/Vol] 29.9 g/dL 29.9-35.2 [facility] MCV Auto (RBC) [Entitic vol] on 11-03-2023 MCV (RBC) [Entitic vol] 82.9 fL 81.0-99.0 [facility] Monocytes Auto (Bld) [#/Vol] on 11-03-2023 Monocytes (Bld) [#/Vol] 0.4 10 3/uL 0.3-0.8 [facility] Monocytes/100 WBC Auto (Bld) on 11-03-2023 Monocytes/100 WBC (Bld) 5.6 % 1.7-12.0 [facility] Neutrophils Auto (Bld) [#/Vo l]on 11-03-2023 Neutrophils (Bld) [#/Vol] 4.3 10 3/uL 1.4-6.5 [facility] Neutrophils/100 WBC Auto (Bl d)on 11-03-2023 Neutrophils/100 WBC (Bld) 58.5 % 43.0-75.0 [facility] No Panel Informationon 11-02 Eosinophils # (Auto) 0.1 10 3/uL 0.0-0.7 [facility] Immature Granulocyte # (Auto) 0.03 10 3/uL 0.00-0.03 [facility] HPV High Risk Other Comment Note . [facility] Comment on above: TESTS RESULT FLAG UN ITS REF RANGE LAB -DIAGNOSIS: 02 NEGATIVE FOR INTRAEPITHELIAL LESION OR MALIGNANCY.Specimen adequacy: 02 Satisfactory for evaluation. Endocervical and/or squamous metaplastic cells (endocervical component) are present.Performed by: 02 Beverly Escalante, Audiology Assistant (ASCP). 02Note: Note 02 The Pap smear [...] <-Panic Low,>-Panic High,A-Abnormal,AA-Critical Abnormal ------Performed at:[address] [id number] Monse Cardona MD, Reference Lab Test Patient Age Note . [facility] Comment on above: TESTS RESULT FLAG UN ITS REF RANGE LAB - Clinician Provided Cytology Information Source.............Cervix;Endocervix No. of containers..01 ThinPrep VialAge Jean-Pierre YOON Elise... 31 FLAG LEGEND: L-Low Normal,H-High Normal,LL-Alert Low,HH-Alert High <-Panic Low,>-Panic High,A-Abnormal,AA-Critical Abnormal ------Performed at:01 [facility] [address] [place] [id number] Monse Cardona MD, Platelet mean volume Auto (B ld) [Entitic vol]on 11-03-2023 Platelet mean volume (Bld) [Entitic vol] 9.6 fL 9.5-13.5 [facility] Platelets Auto (Bld) [#/Vol] on 11-03-2023 Platelets (Bld) [#/Vol] 323 10 3/uL 150-450 [facility] RBC Auto (Bld) [#/Vol]on RBC (Bld) [#/Vol] 3.15 10 6/uL 4.20-5.40 [facility] Serum or plasma albumin/glob ulin mass ratioon 11-03-2023 Albumin/Globulin [Mass ratio] 0.8 {ratio} [facility] Serum or plasma anion gap de terminationon 11-03-2023 Anion gap [Moles/Vol] 13.2 mmol[facility]L [facility] Basophils Auto (Bld) [#/Vol] on 10-30-2023 Basophils (Bld) [#/Vol] 0.0 10 3/uL 0.0-0.1 [facility] Basophils/100 WBC Auto (Bld) on 10-30-2023 Basophils/100 WBC (Bld) 0.6 % 0.2-2.0 [facility] Eosinophils/100 WBC Auto (Bl d)on 10-30-2023 Eosinophils/100 WBC (Bld) 1.2 % 0.9-7.0 [facility] Erythrocyte distribution wid th Auto (RBC) [Ratio]on 10-30-2023 Erythrocyte distribution width (RBC) [Ratio] 16.6 % 11.0-15.0 [facility] Estimated glomerular filtrat ion rate (GFR) non- Americanon 10-30-2023 GFR/1.73 sq M.predicted among non-blacks MDRD (S/P/Bld) [Vol rate/Area] mL/min/{1.73_m2} >=60 [facility] HCG ( test) IA.rapi d Ql (U)on 10-30-2023 HCG ( test) Ql (U) Negative NEGATIVE [facility] Hematocrit Auto (Bld) [Volum e fraction]on 10-30-2023 Hematocrit (Bld) [Volume fraction] 26.6 % 36.0-48.0 [facility] Hemoglobin [Mass/volume] in Bloodon 10-30-2023 Hemoglobin (Bld) [Mass/Vol] 7.9 g/dL 12.0-16.0 [facility] Laboratory - Chemistry and C hemistry - challengeon 10-30-2023 Calcium [Mass/Vol] 8.5 mg/dL 8.5-10.1 [facility] Chloride [Moles/Vol] 101 mmol/L 98-107 [facility] CO2 [Moles/Vol] 28.8 mmol/L 21.0-32.0 [facility] Creatinine [Mass/Vol] 0.62 mg/dL 0.55-1.02 [facility] GFR/1.73 sq M.predicted MDRD (S/P/Bld) [Vol rate/Area] mL/min/{1.73_m2} >=60 [facility] Glucose [Mass/Vol] 104 mg/dL 74-106 [facility] Potassium [Moles/Vol] 4.0 mmol/L 3.5-5.1 [facility] Sodium [Moles/Vol] 137 mmol/L 136-145 [facility] Urea nitrogen [Mass/Vol] 8.0 mg/dL 7.0-18.0 [facility] Urea nitrogen/Creatinine [Mass ratio] 12.9 mg/mg [facility] Laboratory - Hematology and Cell countson 10-30-2023 Immature granulocytes/100 WBC (Bld) 0.4 % 0.0-0.5 [facility] Leukocytes [#/volume] correc carmelita for nucleated erythrocytes in Blood by Automated counon 10-30-2023 WBC corrected for nucl RBC Auto (Bld) [#/Vol] 7.3 10 3/uL 4.0-11.0 [facility] Lymphocytes Auto (Bld) [#/Vo l]on 10-30-2023 Lymphocytes (Bld) [#/Vol] 2.2 10 3/uL 1.2-3.8 [facility] Lymphocytes/100 WBC Auto (Bl d)on 10-30-2023 Lymphocytes/100 WBC (Bld) 30.2 % 20.5-60.0 [facility] MCH Auto (RBC) [Entitic mass ]on 10-30-2023 MCH (RBC) [Entitic mass] 25.0 pg 26.7-34.0 [facility] MCHC Auto (RBC) [Mass/Vol]on 10-30-2023 MCHC (RBC) [Mass/Vol] 29.7 g/dL 29.9-35.2 [facility] MCV Auto (RBC) [Entitic vol] on 10-30-2023 MCV (RBC) [Entitic vol] 84.2 fL 81.0-99.0 [facility] Monocytes Auto (Bld) [#/Vol] on 10-30-2023 Monocytes (Bld) [#/Vol] 0.3 10 3/uL 0.3-0.8 [facility] Monocytes/100 WBC Auto (Bld) on 10-30-2023 Monocytes/100 WBC (Bld) 3.7 % 1.7-12.0 [facility] Neutrophils Auto (Bld) [#/Vo l]on 10-30-2023 Neutrophils (Bld) [#/Vol] 4.6 10 3/uL 1.4-6.5 [facility] Neutrophils/100 WBC Auto (Bl d)on 10-30-2023 Neutrophils/100 WBC (Bld) 63.9 % 43.0-75.0 [facility] No Panel Informationon 10-29 Eosinophils # (Auto) 0.1 10 3/uL 0.0-0.7 [facility] Immature Granulocyte # (Auto) 0.03 10 3/uL 0.00-0.03 [facility] Platelet mean volume Auto (B ld) [Entitic vol]on 10-30-2023 Platelet mean volume (Bld) [Entitic vol] 9.4 fL 9.5-13.5 [facility] Platelets Auto (Bld) [#/Vol] on 10-30-2023 Platelets (Bld) [#/Vol] 264 10 3/uL 150-450 [facility] RBC Auto (Bld) [#/Vol]on RBC (Bld) [#/Vol] 3.16 10 6/uL 4.20-5.40 [facility] Serum or plasma anion gap de terminationon 10-30-2023 Anion gap [Moles/Vol] 11.2 mmol/L [facility] MR head/brain wo/w conon MR head/brain wo/[place] [address] MRI Report Signed Patient: Ashly Mehta MR#: [id number] 8 : 1990 Acct:[id number] Age/Sex: 33 / F ADM Date: 10/08/23 Loc: MR Room: Type: [facility] Attending Dr: Akil Cox DO Copies to: [...] Ivan Holliday M.D.10/08/2023 4:38 PM Dictation Location: [place] [address] Transcribed By: [facility] 10/08/23 1638 Dictated By: Ivan Holliday II, MD 10/08/23 1630 Signed By: 10/08/23 1638 Normal [facility] HCG ( test) IA.rapi d Ql (U)on 10-06-2023 HCG ( test) Ql (U) Negative NEGATIVE [facility] COVID + FLU Quick Testingon 07-07-2023 SARS-CoV-2 (COVID-19) RNA SURI+probe Ql (Unsp spec) Negative [facility] Other COVID + FLU Quick Testing Negative [facility] Other Alanine aminotransferase [En zymatic activity/volume] in Serum or PlasmaOrdered By: Celio Mullins on 07-03-2023 ALT [Catalytic activity/Vol] 22 U/L Normal 7- [facility] Comment on above: Performed By: #### L IPID, CMP #### [address] Albumin [Mass/volume] in Ser um or Plasma by Bromocresol green (BCG) dye binding methoOrdered By: Celio Mullins on 07-03-2023 Albumin BCG dye [Mass/Vol] 4.4 g/dL 3.5-5.7 [facility] Alkaline phosphatase [Enzyma tic activity/volume] in Serum or PlasmaOrdered By: Celio Mullins on 07-03-2023 ALP [Catalytic activity/Vol] 68 U/L Normal 34-104 [facility] Comment on above: Performed By: #### L IPID, CMP #### [facility] [address] [place] [address] [place] Aspartate aminotransferase [ Enzymatic activity/volume] in Serum or PlasmaOrdered By: Celio Mullins on 07-03-2023 AST [Catalytic activity/Vol] 18 U/L Normal 13-39 [facility] Comment on above: Performed By: #### L IPID, CMP #### [place] [address] [place] Bilirubin.total [Mass/volume ] in Serum or PlasmaOrdered By: Celio Mullins on 07-03-2023 Bilirubin [Mass/Vol] 0.4 mg/dL Normal 0.3-1.0 [facility] Comment on above: Performed By: #### L IPID, CMP #### [place] [address] [place] Calcium [Mass/volume] in Ser um or PlasmaOrdered By: Celio Mullins on 07-03-2023 Calcium [Mass/Vol] 9.4 mg/dL Normal 8.6-10.3 [facility] Comment on above: Performed By: #### L IPID, CMP #### [facility] [address] [place] [address] [place] Carbon dioxide, total [Moles /volume] in Serum or PlasmaOrdered By: Celio Mullins on 07-03-2023 CO2 [Moles/Vol] 30.1 mmol/L Normal 21.0-31.0 [facility] Comment on above: Performed By: #### L IPID, CMP #### [place] [address] [place] Chloride [Moles/volume] in S marta or PlasmaOrdered By: Celio Mullins on 07-03-2023 Chloride [Moles/Vol] 105 mmol/L Normal 98-107 [facility] Comment on above: Performed By: #### L IPID, CMP #### [facility] [address] [place] [address] [place] Cholesterol [Mass/volume] in Serum or PlasmaOrdered By: Celio Mullins on 07-03-2023 Cholesterol [Mass/Vol] 126 mg/dL Low 140-200 [facility] Comment on above: Chol less than 200 m g/dl low riskChol 201-239 mg/dl borderline riskChol 240 mg/dl and greater high risk Result Comment: Chol less than 200 mg/dl low risk Chol 201-239 mg/dl borderline risk Chol 240 mg/dl and greater high risk Performed By: #### L IPID, CMP #### [facility] [address] [place] [address] [place] Cholesterol in LDL Calc [Mas s/Vol]Ordered By: Celio Mullins on 07-03-2023 Cholesterol in LDL [Mass/Vol] 69 mg/dL 0-100 [facility] Comment on above: LDL ATP III CLASSIFI CATIONLDL less than 100 mg/dL OptimalLDL 100-129 mg/dL Near or above optimalLDL 130-159 mg/dL Borderline highLDL 160-189 mg/dL HighLDL greater than 189 mg/dL Very high Cholesterol in VLDL Calc [Ma ss/Vol]Ordered By: Celio Mullins on 07-03-2023 Cholesterol in VLDL [Mass/Vol] 18 mg/dL [facility] Comprehensive Metabolic Pane landon 07-03-2023 Albumin [Mass/Vol] 4.4 g/dL Normal 3.5-5.7 [facility] Comment on above: Performed By: #### L IPID, CMP #### [facility] [address] [place] [address] [place] GFR/1.73 sq M.predicted MDRD (S/P/Bld) [Vol rate/Area] mL/min/{1.73_m2} Normal [facility] Comment on above: Performed By: #### L IPID, CMP #### [facility] [address] [place] [address] [place] Creatinine [Mass/volume] in Serum or PlasmaOrdered By: Celio Mullins on 07-03-2023 Creatinine [Mass/Vol] 0.63 mg/dL Normal 0.60-[facility] [facility] Comment on above: Performed By: #### L IPID, CMP #### [facility] [address] Glucose [Mass/volume] in Ser um or PlasmaOrdered By: Celio Mullins on 07-03-2023 Glucose [Mass/Vol] 97 mg/dL Normal 70-100 [facility] Comment on above: ADA recommended refe rence rangeRandom Glucose Reference Range is dependent on time and content of last meal. Glucose of more than 200 mg/dL in a nonstressed, ambulatory subject supports the diagnosis of Diabetes Mellitus. Result Comment: [place] om Glucose Reference Range is dependent on time and content of last meal. Glucose of more than 200 mg/dL in a nonstressed, ambulatory subject supports the diagnosis of Diabetes Mellitus. ADA recommended reference range Performed By: #### L IPID, CMP #### [facility] [address] Lipid Panelon 07-03-2023 LDL Cholesterol,Calculated 69 mg/dL Normal 0-100 [facility] Comment on above: Result Comment: LDL ATP III CLASSIFICATION LDL less than 100 mg/dL Optimal LDL 100-129 mg/dL Near or above optimal LDL 130-159 mg/dL Borderline high LDL 160-189 mg/dL High LDL greater than 189 mg/dL Very high Performed By: #### L IPID, CMP #### [facility] [address] Triglyceride w/Reflex 92 mg/dL Normal 0-149 [facility] Comment on above: Result Comment: TRIG ATP III CLASSIFICATION TRIG less than 150 mg/dL Normal TRIG 150-199 mg/dL Borderline high TRIG 200-500 mg/dL High TRIG greater than 500 mg/dL Very high Standard traceable to the Center for Disease Conrtrol and Prevention (CDC) test method. Performed By: #### L IPID, CMP #### [facility] [address] VLDL CHOLESTEROL 18 mg/dL Normal [facility] Comment on above: Performed By: #### L IPID, CMP #### [facility] [address] [place] [address] No Panel InformationOrdered By: Celio Mullins on 07-03-2023 Estimated GFR (CKD-EPI) > 60.0 mL/Min [facility] Creatinine Clearance (Chem N/A [facility] Potassium [Moles/volume] in Serum or PlasmaOrdered By: Celio Mullins on 07-03-2023 Potassium [Moles/Vol] 4.3 mmol/L Normal 3.5-5.1 [facility] Comment on above: Performed By: #### L IPID, CMP #### [address] Protein [Mass/volume] in Ser um or PlasmaOrdered By: Celio Mullins on 07-03-2023 Protein [Mass/Vol] 7.5 g/dL Normal 6.4-8.9 [facility] Comment on above: Performed By: #### L IPID, CMP #### [facility] [address] [place] [address] Serum globulin measurement b y calculation (mass/volume)Ordered By: Celio Mullins on 07-03-2023 Globulin (S) [Mass/Vol] 3.1 g/dL Normal [facility] Comment on above: Performed By: #### L IPID, CMP #### [facility] [address] [place] [address] Serum or plasma albumin/glob ulin mass ratioOrdered By: Celio Mullins on 07-03-2023 Albumin/Globulin [Mass ratio] 1.4 {ratio} Normal [facility] Comment on above: Performed By: #### L IPID, CMP #### [facility] [address] [place] [address] Serum or plasma anion gap de terminationOrdered By: Celio Mullins on 07-03-2023 Anion gap [Moles/Vol] 10.2 mmol/L Normal 6.0-15.0 [facility] Comment on above: Performed By: #### L IPID, CMP #### [facility] [address] [place] [address] Serum or plasma high density lipoprotein (HDL) cholesterol measurementOrdered By: Celio Mullins on 07-03-2023 Cholesterol in HDL [Mass/Vol] 39 mg/dL Normal 23-92 [facility] Comment on above: HDL CHOL ATP-III CLA SSIFICATION Cardiovascular RiskHDL > or equal to 60 mg/dL LOWHDL < 40 mg/dL HIGH Result Comment: HDL CHOL ATP-III CLASSIFICATION Cardiovascular Risk HDL > or equal to 60 mg/dL LOW HDL < 40 mg/dL HIGH Performed By: #### L IPID, CMP #### [facility] [address] Serum or plasma total choles terol/high density lipoprotein (HDL) cholesterol mass ratOrdered By: Celio Mullins on 07-03-2023 Cholesterol.total/Mali sterol in HDL [Mass ratio] 3.2 {ratio} Normal <5.0 [facility] Comment on above: Result Comment: PERF ORMED BY: [place] [address] PATHOLOGIST ELEMENTARY LIBRARIAN NESHA MAIER M.D. Performed By: #### L IPID, CMP #### [facility] [address] Sodium [Moles/volume] in Ser um or PlasmaOrdered By: Celio Mullins on 07-03-2023 Sodium [Moles/Vol] 141 mmol/L Normal 136-145 [facility] Comment on above: Performed By: #### L IPID, CMP #### [facility] [address] Triglyceride [Mass/volume] i n Serum or PlasmaOrdered By: Celio Mullins on 07-03-2023 Triglyceride [Mass/Vol] 92 mg/dL 0-149 [facility] Comment on above: TRIG ATP III CLASSIF ICATIONTRIG less than 150 mg/dL NormalTRIG 150-199 mg/dL Borderline highTRIG 200-500 mg/dL High TRIG greater than 500 mg/dL Very highStandard traceable to the Center for Disease Conrtrol and Prevention (CDC) test method. Urea nitrogen [Mass/volume] in Serum or PlasmaOrdered By: Celio Mullins on 07-03-2023 Urea nitrogen [Mass/Vol] 13 mg/dL Normal 7-25 [facility] Comment on above: Performed By: #### L IPID, CMP #### [facility] [address] [place] [address] [place] A1C with Estimated Average G gee 07-01-2023 Glucose [Mass/Vol] 117 mg/dL Normal [facility] Comment on above: Order Comment: Reaso n for Exam Severe obesity (BMI >= 40);PCOS (polycystic ovarian syndrome Result Comment: PERF ORMED BY: [place] [address] PATHOLOGIST ELEMENTARY LIBRARIAN NESHA MAIER M.D. Performed By: #### A POB, LIPA #### [facility] , #### CMP, A1C WT eA #### [facility] [address] [place] [address] Alanine aminotransferase [En zymatic activity/volume] in Serum or PlasmaOrdered By: Celio Mullins on 07-01-2023 ALT [Catalytic activity/Vol] 21 U/L Normal 7-52 [facility] Comment on above: Order Comment: Reaso n for Exam Severe obesity (BMI >= 40);PCOS (polycystic ovarian syndrome NON FASTING Performed By: #### A POB, LIPA #### [facility] , #### CMP, A1C WT eA #### [place] [address] [place] Albumin [Mass/volume] in Ser um or Plasma by Bromocresol green (BCG) dye binding methoOrdered By: Celio Mullins on 07-01-2023 Albumin BCG dye [Mass/Vol] 4.6 g/dL 3.5-5.7 [facility] Alkaline phosphatase [Enzyma tic activity/volume] in Serum or PlasmaOrdered By: Celio Mullins on 07-01-2023 ALP [Catalytic activity/Vol] 72 U/L Normal 34-104 [facility] Comment on above: Order Comment: Reaso n for Exam Severe obesity (BMI >= 40);PCOS (polycystic ovarian syndrome NON FASTING Result Comment: PERF ORMED BY: [place] [id number] PATHOLOGIST ELEMENTARY LIBRARIAN NESHA MAIER M.D. Performed By: #### A POB, LIPA #### [facility] , #### CMP, A1C WTH eA #### [facility] [address] [place] [id number] [facility] Apolipoprotein B [Mass/volum e] in Serum or PlasmaOrdered By: Celio Mullins on 07-01-2023 Apolipoprotein B [Mass/Vol] 83 mg/dL Normal <90 [facility] Comment on above: Desirable < 90 Borde rline High 90 - 99 High 100 - 130 Very High >130 ASCVD RISK THERAPEUTIC TARGET CATEGORY APO B (mg/dL) Very High Risk <80 (if extreme risk <70) High Risk <90 Moderate Risk <90Performed at: [facility] [address] [id number] Director: Jeanna Case MD, Phone: [phone] Order Comment: Reaso n for Exam Severe obesity (BMI >= 40);PCOS (polycystic ovarian syndrome Result Comment: Hedy rable < 90 Borderline High 90 - 99 High 100 - 130 Very High >130 ASCVD RISK THERAPEUTIC TARGET CATEGORY APO B (mg/dL) Very High Risk <80 (if extreme risk <70) High Risk <90 Moderate Risk <90 Performed at: [facility] [id number] Book Coverer: Jaenna Case MD, Phone: [phone] PERFORMED BY: [facility] [address] [place] [id number] PATHOLOGIST ELEMENTARY LIBRARIAN NESHA MAIER M.D. Performed By: #### A POB, LIPA #### [facility] , #### CMP, A1C WTH eA #### [facility] [address] [place] [address] [place] Aspartate aminotransferase [ Enzymatic activity/volume] in Serum or PlasmaOrdered By: Celio Mullins on 07-01-2023 AST [Catalytic activity/Vol] 19 U/L Normal 13-39 [facility] Comment on above: Order Comment: Reaso n for Exam Severe obesity (BMI >= 40);PCOS (polycystic ovarian syndrome NON FASTING Performed By: #### A POB, LIPA #### [facility] , #### CMP, A1C WTH eA #### [facility] [address] Bilirubin.total [Mass/volume ] in Serum or PlasmaOrdered By: Celio Mullins on 07-01-2023 Bilirubin [Mass/Vol] 0.4 mg/dL Normal 0.3-1.0 [facility] Comment on above: Order Comment: Reaso n for Exam Severe obesity (BMI >= 40);PCOS (polycystic ovarian syndrome NON FASTING Performed By: #### A POB, LIPA #### [facility] , #### CMP, A1C WT eA #### [facility] [address] Calcium [Mass/volume] in Ser um or PlasmaOrdered By: Celio Mullins on 07-01-2023 Calcium [Mass/Vol] 9.8 mg/dL Normal 8.6-10.3 [facility] Comment on above: Order Comment: Reaso n for Exam Severe obesity (BMI >= 40);PCOS (polycystic ovarian syndrome NON FASTING Performed By: #### A POB, LIPA #### [facility] , #### CMP, A1C WTH eA #### [facility] [address] [place] [address] [place] Carbon dioxide, total [Moles /volume] in Serum or PlasmaOrdered By: Celio Mullins on 07-01-2023 CO2 [Moles/Vol] 25.3 mmol/L Normal 21.0-31.0 [facility] Comment on above: Order Comment: Reaso n for Exam Severe obesity (BMI >= 40);PCOS (polycystic ovarian syndrome NON FASTING Performed By: #### A POB, LIPA #### [facility] , #### CMP, A1C WTH eA #### [facility] [address] Chloride [Moles/volume] in S marta or PlasmaOrdered By: Celio Mullins on 07-01-2023 Chloride [Moles/Vol] 105 mmol/L Normal 98-107 [facility] Comment on above: Order Comment: Reaso n for Exam Severe obesity (BMI >= 40);PCOS (polycystic ovarian syndrome NON FASTING Performed By: #### A POB, LIPA #### [facility] , #### CMP, A1C WT eA #### [address] Comprehensive Metabolic Pane landon 07-01-2023 Albumin [Mass/Vol] 4.6 g/dL Normal 3.5-5.7 [facility] Comment on above: Order Comment: Reaso n for Exam Severe obesity (BMI >= 40);PCOS (polycystic ovarian syndrome NON FASTING Performed By: #### A POB, LIPA #### [facility] , #### CMP, A1C WTH eA #### [place] [address] [place] GFR/1.73 sq M.predicted MDRD (S/P/Bld) [Vol rate/Area] mL/min/{1.73_m2} Normal [facility] Comment on above: Order Comment: Reaso n for Exam Severe obesity (BMI >= 40);PCOS (polycystic ovarian syndrome NON FASTING Performed By: #### A POB, LIPA #### [facility] , #### CMP, A1C WTH eA #### [place] [address] [place] Creatinine [Mass/volume] in Serum or PlasmaOrdered By: Celio Mullins on 07-01-2023 Creatinine [Mass/Vol] 0.64 mg/dL Normal 0.60-1.20 [facility] Comment on above: Order Comment: Reaso n for Exam Severe obesity (BMI >= 40);PCOS (polycystic ovarian syndrome NON FASTING Performed By: #### A POB, LIPA #### [facility] , #### CMP, A1C WTH eA #### [facility] [address] [place] [address] [place] Glucose [Mass/volume] in Ser um or PlasmaOrdered By: Celio Mullins on 07-01-2023 Glucose [Mass/Vol] 95 mg/dL Normal 70-100 [facility] Comment on above: ADA recommended refe rence rangeRandom Glucose Reference Range is dependent on time and content of last meal. Glucose of more than 200 mg/dL in a nonstressed, ambulatory subject supports the diagnosis of Diabetes Mellitus. Order Comment: Reaso n for Exam Severe obesity (BMI >= 40);PCOS (polycystic ovarian syndrome NON FASTING Result Comment: [place] om Glucose Reference Range is dependent on time and content of last meal. Glucose of more than 200 mg/dL in a nonstressed, ambulatory subject supports the diagnosis of Diabetes Mellitus. ADA recommended reference range Performed By: #### A POB, LIPA #### [facility] , #### CMP, A1C WTH eA #### [facility] [address] [place] [address] [place] Glucose mean value [Mass/vol ume] in Blood Estimated from glycated hemoglobinOrdered By: Celio Mullins on 07-01-2023 Average glucose Estimated from glycated hemoglobin (Bld) [Mass/Vol] 117 mg/dL [facility] Hemoglobin A1c percentageOrd ered By: Celio Mullins on 07-01-2023 HbA1c (Bld) [Mass fraction] 5.7 % High 4.3-5.6 [facility] Comment on above: Increased risk for [...] , #### CMP, A1C WTH eA #### [facility] [address] [place] [address] [place] Lipoprotein (a)on 07-01-2023 Lipoprotein a [Mass/Vol] 13.0 mg/dL Normal <75.0 [facility] Comment on above: Order Comment: Reaso n for Exam Severe obesity (BMI >= 40);PCOS (polycystic ovarian syndrome Result Comment: Note : Values greater than or equal to 75.0 nmol/L may indicate an independent risk factor for CHD, but must be evaluated with caution when applied to non- populations due to the influence of genetic factors on Lp(a) across ethnicities. Performed at: [facility] [address] [id number] Book Coverer: Cassius Zhong PhD, Phone: [phone] Performed By: #### A POB, LIPA #### [facility] , #### CMP, A1C WT eA #### [facility] [address] [place] [address] No Panel InformationOrdered By: Celio Mullins on 07-01-2023 Estimated GFR (CKD-EPI) > 60.0 mL/Min [facility] Creatinine Clearance (Chem N/A [facility] Potassium [Moles/volume] in Serum or PlasmaOrdered By: Celio Mullins on 07-01-2023 Potassium [Moles/Vol] 3.8 mmol/L Normal 3.5-5.1 [facility] Comment on above: Order Comment: Reaso n for Exam Severe obesity (BMI >= 40);PCOS (polycystic ovarian syndrome NON FASTING Performed By: #### A POB, LIPA #### [facility] , #### CMP, A1C WTH eA #### [facility] [address] [place] [address] [place] Protein [Mass/volume] in Ser um or PlasmaOrdered By: Celio Mullins on 07-01-2023 Protein [Mass/Vol] 7.8 g/dL Normal 6.4-8.9 [facility] Comment on above: Order Comment: Reaso n for Exam Severe obesity (BMI >= 40);PCOS (polycystic ovarian syndrome NON FASTING Performed By: #### A POB, LIPA #### [facility] , #### CMP, A1C WTH eA #### [address] Serum globulin measurement b y calculation (mass/volume)Ordered By: Celio Mullins on 07-01-2023 Globulin (S) [Mass/Vol] 3.2 g/dL Normal [facility] Comment on above: Order Comment: Reaso n for Exam Severe obesity (BMI >= 40);PCOS (polycystic ovarian syndrome NON FASTING Performed By: #### A POB, LIPA #### [facility] , #### CMP, A1C WTH eA #### [address] Serum or plasma albumin/glob ulin mass ratioOrdered By: Celio Mullins on 07-01-2023 Albumin/Globulin [Mass ratio] 1.4 {ratio} Normal [facility] Comment on above: Order Comment: Reaso n for Exam Severe obesity (BMI >= 40);PCOS (polycystic ovarian syndrome NON FASTING Performed By: #### A POB, LIPA #### [facility] , #### CMP, A1C WTH eA #### [address] Serum or plasma anion gap de terminationOrdered By: Celio Mullins on 07-01-2023 Anion gap [Moles/Vol] 11.5 mmol/L Normal 6.0-15.0 [facility] Comment on above: Order Comment: Reaso n for Exam Severe obesity (BMI >= 40);PCOS (polycystic ovarian syndrome NON FASTING Performed By: #### A POB, LIPA #### [facility] , #### CMP, A1C WTH eA #### [facility] [address] Serum or plasma lipoprotein a measurement (moles/volume)Ordered By: Celio Mullins on 07-01-2023 Lipoprotein a [Moles/Vol] 13.0 nmol/L <75.0 [facility] Comment on above: Note: Values greater than or equal to 75.0 nmol/L may indicate an independent risk factor for CHD, but must be evaluated with caution when applied to non- populations due to the influence of genetic factors on Lp(a) across ethnicities.Performed at: - [facility] [address] [id number] Director: Cassius Zhong PhD, Phone: [phone] Sodium [Moles/volume] in Ser um or PlasmaOrdered By: Celio Mullins on 07-01-2023 Sodium [Moles/Vol] 138 mmol/L Normal 136-145 [facility] Comment on above: Order Comment: Reaso n for Exam Severe obesity (BMI >= 40);PCOS (polycystic ovarian syndrome NON FASTING Performed By: #### A POB, LIPA #### [facility] , #### CMP, A1C [facility] eA #### [address] Urea nitrogen [Mass/volume] in Serum or PlasmaOrdered By: Celio Mullins on 07-01-2023 Urea nitrogen [Mass/Vol] 16 mg/dL Normal 7-25 [facility] Comment on above: Order Comment: Reaso n for Exam Severe obesity (BMI >= 40);PCOS (polycystic ovarian syndrome NON FASTING Performed By: #### A POB, LIPA #### [facility] , #### CMP, A1C [facility] eA #### [place] [address] [place] COVID Quick Testingon 2022 Result Negative [facility] Other SARS-CoV-2 (COVID-19) RNA NA A+probe Ql (Resp)on 02-11-2023 SARS-CoV-2 (COVID-19) RNA SURI+probe Ql (Unsp spec) Negative [facility] Other DHEA-SULFATEon 01-01-2023 DHEA-Sulfate 95.3 ug/dL Normal 84.8-378.0 [facility] Comment on above: Performed By: #### D RIMA #### [facility] [address] [place] [address] Dr. Kaushik Palomares FSHon 01-01-2023 FSH 4.6 mIU/mL Normal [facility] Comment on above: Result Comment: Adul t Female: Follicular phase 3.5 - 12.5 Ovulation phase 4.7 - 21.5 Luteal phase 1.7 - 7.7 Postmenopausal 25.8 - 134.8 Performed By: #### C BC #### [facility] [address] [place] [address] Dr. Kaushik Palomares LUTEINIZING HORMONE (LH)on 0 01-01-2023 LH 3.5 mIU/mL Normal [facility] Comment on above: Result Comment: Adul t Female: Follicular phase 2.4 - 12.6 Ovulation phase 14.0 - 95.6 Luteal phase 1.0 - 11.4 Postmenopausal 7.7 - 58.5 Performed By: #### L BCL #### [facility] [address] [place] [address] Dr. Kaushik Palomares CBC AUTO DIFFon 12-31-2022 BASO # 0.1 103/ul Normal 0.0-0.1 [facility] Comment on above: Performed By: #### C BC #### [facility] [address] [place] [address] Dr. Kaushik Palomares Basophils/100 WBC (Bld) 0.8 % Normal 0.2-2.0 [facility] Comment on above: Performed By: #### C BC #### [facility] [address] [place] [address] Dr. Kaushik Palomares EO # 0.1 103/ul Normal 0.0-0.7 [facility] Comment on above: Performed By: #### C BC #### [facility] [address] [place] [address] Dr. Kaushik Palomares Eosinophils/100 WBC (Bld) 1.7 % Normal 0.9-7.0 [facility] Comment on above: Performed By: #### C BC #### [facility] [address] [place] [address] Dr. Kaushik Palomares Erythrocyte distribution width (RBC) [Ratio] 12.8 % Normal 11.0-15.0 [facility] Comment on above: Performed By: #### C BC #### [facility] [address] [place] [address] Dr. Kaushik Palomares Hematocrit (Bld) [Volume fraction] 33.0 % Critically low 36.0-48.0 [facility] Comment on above: Performed By: #### C BC #### [facility] [address] [place] [address] Dr. Kaushik Palomares Hemoglobin (Bld) [Mass/Vol] 11.0 g/dL Critically low 12.0-16.0 [facility] Comment on above: Performed By: #### C BC #### [facility] [address] [place] [address] Dr. Kaushik Palomares IG # 0.03 10e3/ul Normal 0.00-0.03 [facility] Comment on above: Performed By: #### C BC #### [facility] [address] [place] [address] Dr. Kaushik Palomares IG % 0.5 % Normal 0.0-0.5 [facility] Comment on above: Performed By: #### C BC #### [facility] [address] [place] [address] Dr. Kaushik Palomares LYMPH # 2.4 103/ul Normal 1.2-3.8 [facility] Comment on above: Performed By: #### C BC #### [facility] [address] [place] [address] Dr. Kaushik Palomares Lymphocytes/100 WBC (Bld) 36.6 % Normal 20.5-60.0 [facility] Comment on above: Performed By: #### C BC #### [facility] [address] [place] [address] Dr. Kaushik Palomares MANUAL DIFF REQ NO Normal [facility] Comment on above: Performed By: #### C BC #### [facility] [address] [place] [address] Dr. Kaushik Palomares MCH (RBC) [Entitic mass] 29.0 pg Normal 26.7-34.0 [facility] Comment on above: Performed By: #### C BC #### [facility] [address] [place] [address] Dr. Kaushik Palomares MCHC (RBC) [Mass/Vol] 33.3 g/dL Normal 29.9-35.2 [facility] Comment on above: Performed By: #### C BC #### [facility] [address] [place] [address] Dr. Kaushik Palomares MCV (RBC) [Entitic vol] 87.1 fL Normal 81.0-99.0 [facility] Comment on above: Performed By: #### C BC #### [facility] [address] [place] [address] Dr. Kaushik Palomares MONO # 0.2 103/ul Critically low 0.3-0.8 [facility] Comment on above: Performed By: #### C BC #### [facility] [address] [place] [address] Dr. Kaushik Palomares Monocytes/100 WBC (Bld) 3.6 % Normal 1.7-12.0 [facility] Comment on above: Performed By: #### C BC #### [facility] [address] [place] [address] Dr. Kaushik Palomares NEUT # 3.7 103/ul Normal 1.4-6.5 [facility] Comment on above: Performed By: #### C BC #### [facility] [address] [place] [address] Dr. Kaushik Palomares Neutrophils/100 WBC (Bld) 56.8 % Normal 43.0-75.0 [facility] Comment on above: Performed By: #### C BC #### [facility] [address] [place] [address] Dr. Kaushik Palomares Platelet mean volume (Bld) [Entitic vol] 9.8 fL Normal 9.5-13.5 [facility] Comment on above: Performed By: #### C BC #### [facility] [address] [place] [address] Dr. Kaushik Palomares PLT 234 103/ul Normal 150-450 [facility] Comment on above: Performed By: #### C BC #### [facility] [address] [place] [address] [address] Kaushik Palomares RBC 3.79 106/ul Critically low 4.20-5.[address] [facility] Comment on above: Performed By: #### C BC #### [facility] [address] [place] [address] Dr. Kaushik Palomares WBC 6.5 103/ul Normal 4.0-11.0 [facility] Comment on above: Performed By: #### C BC #### [facility] [address] [place] [address] Dr. Kaushik Palomares FREE T4on 12-31-2022 Free T4 [Mass/Vol] 0.79 ng/dL Normal 0.76-1.46 [facility] Comment on above: Performed By: #### F T4 #### [facility] [address] [place] [address] Dr. Kaushik Palomares GLYCOHEMOGLOBIN A1Con 2022 ADA RECOMMENDATION SEE BELOW Normal [facility] Comment on above: Result Comment: ADA RECOMMENDED LIMIT 4.0 - 6.0 ADA THERAPEUTIC TARGET < 7.0 ACTION SUGGESTED > 7.0 Performed By: #### A 1C #### [facility] [address] [place] [address] Dr. Kaushik Palomares Glucose [Mass/Vol] 111 mg/dL Normal [facility] Comment on above: Performed By: #### A 1C #### [facility] [address] [place] [address] Dr. Kaushik Palomares HbA1c (Bld) [Mass fraction] 5.5 % Normal 4.5-6.2 [facility] Comment on above: Performed By: #### A 1C #### [facility] [address] [place] [address] Dr. Kaushik Palomares TSHon 12-31-2022 TSH 1.114 uIU/mL Normal 0.358-3.740 [facility] Comment on above: Performed By: #### C #### [facility] [address] [place] [address] [address] Kaushik Palomares US PELVIS AND TRANSVAGon [...] SUGEY MACDONALD Date: 2022-11-26 15:58 Normal [facility] [facility] SACRUM_COCCYXon 3 XR SACRUM_COCCYX EXAMINATION: [...] authenticated by: SUGEY MACDONALD Date: 2022-11-08 10:[address] [facility] PAP ACOG PANEL 2: 30 to 65on 11-05-2022 . . Normal [facility] Comment on above: Result Comment: Perf ormed at: WB Performed By: #### C BC #### [facility] [address] [address] [address] Kaushik Palomares Age Gdln ACOG Testing 30-65 Normal [facility] Comment on above: Performed By: #### C BC #### [facility] [address] [address] [address] Kaushik Palomares DIAGNOSIS: Comment [facility] Comment on above: Result Comment: NEGA TIVE FOR INTRAEPITHELIAL LESION OR MALIGNANCY. Performed at: WB Performed By: #### C BC #### [facility] [address] [address] [address] Kaushik Palomares HPV Aptima Negative Normal Negative [facility] Comment on above: Result Comment: This nucleic acid amplification test detects fourteen high-risk HPV types (16,18,31,33,35,39,45,51,52,56,58,59,66,68) without differentiation. Performed at: =G Performed By: #### C BC #### [facility] [address] [address] [address] Kaushik Palomares HPV Genotype Reflex Comment Normal [facility] Comment on above: Result Comment: Crit eria not met, HPV Genotype not performed. Performed at: WB Performed By: #### C BC #### [facility] [address] [address] [address] Kaushik Palomares Methodology: Comment Normal [facility] Comment on above: Result Comment: This liquid based ThinPrep(R) pap test was screened with the use of an image guided system. Performed at: WB Performed By: #### C BC #### [facility] [address] [place] [address] Dr. Kaushik Palomares Note: Comment Normal [facility] Comment on above: Result Comment: The [...] WB Performed By: #### C BC #### [facility] [address] [place] [address] Dr. Kaushik Palomares Performed by: Comment Normal [facility] Comment on above: Result Comment: Robi Graham, Audiology Assistant (ASCP) Performed at: WB Performed By: #### C BC #### [facility] [address] [place] [address] Dr. Kaushik Palomares Specimen adequacy: Comment Normal [facility] Comment on above: Result Comment: Sati sfactory for evaluation. Endocervical and/or squamous metaplastic cells (endocervical component) are present. Performed at: WB Performed By: #### C BC #### [facility] [address] [place] [address] Dr. Kaushik Palomares COVID/FLU RT-PCRon 2 SARS-CoV-2 (COVID-19) RNA SURI+probe Ql (Unsp spec) Negative [facility] Other COVID/FLU RT-PCR Negative [employer] Other HCG-BETA SUBUNIT QUANTon hCG,Beta Subunit,Qnt,Serum <1 Normal [facility] Comment on above: Result Comment: Fema le (Non-) 0 - 5 (Postmenopausal) 0 - 8 . Female () Weeks of Gestation 3 6 - 71 4 10 - 750 5 217 - 7138 6 158 - 20937 7 [phone] [id number] 8 54946 -[phone] 9 56906 -[phone] 10 89347 -[phone] 12 02977 -[phone] 14 87800 - 01212 15 81610 - 11305 16 6217 - 06908 17 5881 - 29968 18 4110 - 84640 Rg ECLIA methodology Performed By: #### H CGSUB #### [facility] [address] [place] [address] Dr. Kaushik Palomares T4 LABCORPon 01-22-2022 T4 [Mass/Vol] 7.8 ug/dL Normal 4.5-12.0 [facility] Comment on above: Performed By: #### T 4LC #### [facility] [address] [place] [address] Dr. Kaushik Palomares CBC AUTO DIFFon 01-21-2022 BASO # 0.1 103/ul Normal 0.0-0.1 [facility] Comment on above: Performed By: #### C BC #### [facility] [address] [place] [address] Dr. Kaushik Palomares Basophils/100 WBC (Bld) 0.6 % Normal 0.2-2.0 [facility] Comment on above: Performed By: #### C BC #### [facility] [address] [place] [address] Dr. Kaushik Palomares EO # 0.1 103/ul Normal 0.0-0.7 [facility] Comment on above: Performed By: #### C BC #### [facility] [address] [place] [address] Dr. Kaushik Palomares Eosinophils/100 WBC (Bld) 1.2 % Normal 0.9-7.0 [facility] Comment on above: Performed By: #### C BC #### [facility] [address] [place] [address] Dr. Kaushik Palomares Erythrocyte distribution width (RBC) [Ratio] 13.3 % Normal 11.0-15.0 [facility] Comment on above: Performed By: #### C BC #### [facility] [address] [place] [address] Dr. Kaushik Palomares Hematocrit (Bld) [Volume fraction] 40.0 % Normal 36.0-48.0 [facility] Comment on above: Performed By: #### C BC #### [facility] [address] [place] [address] Dr. Kaushik Palomares Hemoglobin (Bld) [Mass/Vol] 12.7 g/dL Normal 12.0-16.0 [facility] Comment on above: Performed By: #### C BC #### [facility] [address] [place] [address] Dr. Kaushik Palomares IG # 0.02 10e3/ul Normal 0.00-0.03 [facility] Comment on above: Performed By: #### C BC #### [facility] [address] [place] [address] Dr. Kaushik Palomares IG % 0.2 % Normal 0.0-0.5 [facility] Comment on above: Performed By: #### C BC #### [facility] [address] [place] [address] Dr. Kaushik Palomares LYMPH # 3.0 103/ul Normal 1.2-3.8 [facility] Comment on above: Performed By: #### C BC #### [facility] [address] [place] [address] Dr. Kaushik Palomares Lymphocytes/100 WBC (Bld) 32.9 % Normal 20.5-60.0 [facility] Comment on above: Performed By: #### C BC #### [facility] [address] [place] [address] Dr. Kaushik Palomares MANUAL DIFF REQ NO Normal [facility] Comment on above: Performed By: #### C BC #### [facility] [address] [place] [address] Dr. Kaushik Palomares MCH (RBC) [Entitic mass] 28.5 pg Normal 26.7-34.0 [facility] Comment on above: Performed By: #### C BC #### [facility] [address] [place] [address] Dr. Kaushik Palomares MCHC (RBC) [Mass/Vol] 31.8 g/dL Normal 29.9-35.2 [facility] Comment on above: Performed By: #### C BC #### [facility] [address] [place] [address] Dr. Kaushik Palomares MCV (RBC) [Entitic vol] 89.7 fL Normal 81.0-99.0 [facility] Comment on above: Performed By: #### C BC #### [facility] [address] [place] [address] Dr. Kaushik Palomares MONO # 0.5 103/ul Normal 0.3-0.8 [facility] Comment on above: Performed By: #### C BC #### [facility] [address] [place] [address] Dr. Kaushik Palomares Monocytes/100 WBC (Bld) 5.1 % Normal 1.7-12.0 [facility] Comment on above: Performed By: #### C BC #### [facility] [address] [place] [address] Dr. Kaushik Palomares NEUT # 5.4 103/ul Normal 1.4-6.5 [facility] Comment on above: Performed By: #### C BC #### [facility] [address] [place] [address] Dr. Kaushik Palomares Neutrophils/100 WBC (Bld) 60.0 % Normal 43.0-75.0 [facility] Comment on above: Performed By: #### C BC #### [facility] [address] [place] [address] Dr. Kaushik Palomares Platelet mean volume (Bld) [Entitic vol] 9.3 fL Critically low 9.5-13.5 [facility] Comment on above: Performed By: #### C BC #### [facility] [address] [place] [address] Dr. Kaushik Palomares PLT 221 103/ul Normal 150-450 [facility] Comment on above: Performed By: #### C BC #### [facility] [address] [place] [address] Dr. Kaushik Palomares RBC 4.46 106/ul Normal 4.20-5.40 [facility] Comment on above: Performed By: #### C BC #### [facility] [address] [place] [address] Dr. Kaushik Palomares WBC 9.0 103/ul Normal 4.0-11.0 [facility] Comment on above: Performed By: #### C BC #### [facility] [address] [place] [address] Dr. Kaushik Palomares GLYCOHEMOGLOBIN A1Con 2021 ADA RECOMMENDATION SEE BELOW Normal [facility] Comment on above: Result Comment: ADA RECOMMENDED LIMIT 4.0 - 6.0 ADA THERAPEUTIC TARGET < 7.0 ACTION SUGGESTED > 7.0 Performed By: #### C BC #### [facility] [address] [address] [address] Kaushik Palomares Glucose [Mass/Vol] 94 mg/dL Normal [facility] Comment on above: Performed By: #### C BC #### [facility] [address] [address] [address] Kaushik Palomares HbA1c (Bld) [Mass fraction] 4.9 % Normal 4.5-6.2 [facility] Comment on above: Performed By: #### C BC #### [facility] [address] [address] [address] Kaushik Palomares LIPID PROFILEon 01-21-2022 CHOL-HDL RATIO NORM SEE BELOW Normal [facility] Comment on above: Result Comment: 3.3 - 4.4 LOW RISK 4.4 - 7.1 AVERAGE RISK 7.1 - 11.0 MODERATE RISK >11.0 HIGH RISK Performed By: #### L IPID, CMP, TSH #### [facility] [address] [address] [address] Kaushik Palomares Cholesterol [Mass/Vol] 168 mg/dL Normal <=200 [facility] Comment on above: Performed By: #### L IPID, CMP, TSH #### [facility] [address] [address] [address] Kaushik Palomares Cholesterol in HDL [Mass/Vol] 41 mg/dL Normal 40-60 [facility] Comment on above: Performed By: #### L IPID, CMP, TSH #### [facility] [address] [address] [address] Kaushik Palomares Cholesterol in LDL [Mass/Vol] 90.2 mg/dL Normal [facility] Comment on above: Performed By: #### L IPID, CMP, TSH #### [facility] [address] [address] [address] Kaushik Palomares Cholesterol.total/Mali sterol in HDL [Mass ratio] 4.1 {ratio} Normal [facility] Comment on above: Performed By: #### L IPID, CMP, TSH #### [facility] [address] [address] [address] Kaushik Palomares HDL NORMAL > or = 60 mg/dl - LO W CARDIOVASCULAR RISK <40 mg/dl - HIGH CARDIOVASCULAR RISK Normal [facility] Comment on above: Performed By: #### L IPID, CMP, TSH #### [facility] [address] [address] [address] Kaushik Palomraes LDL CALC NORMAL SEE BELOW Normal [facility] Comment on above: Result Comment: <100 mg/dl OPTIMAL 100 - 129 mg/dl NEAR OR ABOVE OPTIMAL 130 - 159 mg/dl BORDERLINE HIGH 160 - 189 mg/dl HIGH >190 mg/dl VERY HIGH Performed By: #### L IPID, CMP, TSH #### [facility] [address] [address] [address] Kaushik Palomares Triglyceride [Mass/Vol] 184 mg/dL Critically high <=150 [facility] Comment on above: Performed By: #### L IPID, CMP, TSH #### [facility] [address] [address] [address] Kaushik Palomares VLDL CALC 36.8 mg/dL Normal [facility] Comment on above: Performed By: #### L IPID, CMP, TSH #### [facility] [address] [address] [address] Kaushik Palomares MICROALBUMIN, RAND URon 06-0 mALB 2.0 mg/L Normal <=30.0 [facility] Comment on above: Performed By: #### C BC #### [facility] [address] [address] [address] Kaushik Palomares PROF 14(COMP METB)on 022 Albumin [Mass/Vol] 3.7 g/dL Normal 3.4-5.0 [facility] Comment on above: Performed By: #### L IPID, CMP, TSH #### [facility] [address] [address] [address] Kaushik Palomares Albumin/Globulin [Mass ratio] 0.9 {ratio} Normal [facility] Comment on above: Performed By: #### L IPID, CMP, TSH #### [facility] [address] [address] [address] Kaushik Palomares ALP [Catalytic activity/Vol] 53 U/L Normal 46-116 [facility] Comment on above: Performed By: #### L IPID, CMP, TSH #### [facility] [address] [address] [address] Kaushik Palomares ALT [Catalytic activity/Vol] 44 U/L Normal 14-59 [facility] Comment on above: Performed By: #### L IPID, CMP, TSH #### [facility] [address] [address] [address] Kaushik Palomares Anion gap [Moles/Vol] 6.8 mmol/L Normal [facility] Comment on above: Performed By: #### L IPID, CMP, TSH #### [facility] [address] [place] [address] Dr. Kaushik Palomares AST [Catalytic activity/Vol] 22 U/L Normal 15-37 [facility] Comment on above: Performed By: #### L IPID, CMP, TSH #### [facility] [address] [place] [address] Dr. Kaushik Palomares Bilirubin [Mass/Vol] 0.3 mg/dL Normal 0.2-1.0 [facility] Comment on above: Performed By: #### L IPID, CMP, TSH #### [facility] [address] [place] [address] Dr. Kaushik Palomares Calcium [Mass/Vol] 9.2 mg/dL Normal 8.5-10.1 [facility] Comment on above: Performed By: #### L IPID, CMP, TSH #### [facility] [address] [place] [address] Dr. Kaushik Palomares Chloride [Moles/Vol] 102 mmol/L Normal 98-107 [facility] Comment on above: Performed By: #### L IPID, CMP, TSH #### [facility] [address] [place] [address] Dr. Kaushik Palomares CO2 [Moles/Vol] 31.4 mmol/L Normal 21.0-32.0 [facility] Comment on above: Performed By: #### L IPID, CMP, TSH #### [facility] [address] [address] [address] Kaushik Palomares Creatinine [Mass/Vol] 0.71 mg/dL Normal 0.55-1.02 [facility] Comment on above: Performed By: #### L IPID, CMP, TSH #### [facility] [address] [address] [address] Kaushik Palomares EGFR-AF ANDORRAN >60 Normal >=60 [facility] Comment on above: Performed By: #### L IPID, CMP, TSH #### [facility] [address] [address] [address] Kaushik Palomares EGFR-NON AF ANDORRAN >60 Normal >=60 [facility] Comment on above: Performed By: #### L IPID, CMP, TSH #### [facility] [address] [address] [address] Kaushik Palomares Globulin (S) [Mass/Vol] 4.2 g/dL Normal [facility] Comment on above: Performed By: #### L IPID, CMP, TSH #### [facility] [address] [address] [address] Kaushik Palomares Glucose [Mass/Vol] 93 mg/dL Normal 74-106 [facility] Comment on above: Performed By: #### L IPID, CMP, TSH #### [facility] [address] [address] [address] Kaushik Palomares Potassium [Moles/Vol] 4.2 mmol/L Normal 3.5-5.1 [facility] Comment on above: Performed By: #### L IPID, CMP, TSH #### [facility] [address] [address] [address] Kaushik Palomares Protein [Mass/Vol] 7.9 g/dL Normal 6.4-8.2 [facility] Comment on above: Performed By: #### L IPID, CMP, TSH #### [facility] [address] [address] [address] Kaushik Palomares Sodium [Moles/Vol] 136 mmol/L Normal 136-145 [facility] Comment on above: Performed By: #### L IPID, CMP, TSH #### [facility] [address] [address] [address] Kaushik Palomares Urea nitrogen [Mass/Vol] 11.0 mg/dL Normal 7.0-18.0 [facility] Comment on above: Performed By: #### L IPID, CMP, TSH #### [facility] [address] [address] [address] Kaushik Palomares Urea nitrogen/Creatinine [Mass ratio] 15.5 mg/mg Normal [facility] Comment on above: Performed By: #### L IPID, CMP, TSH #### [facility] [address] [place] [address] Dr. Kaushik Palomares TSHon 01-21-2022 TSH 1.298 uIU/mL Normal 0.358-3.740 [facility] Comment on above: Performed By: #### C BC #### [facility] [address] [place] [address] Dr. Kaushik Palomares TSH RANGE SEE BELOW Normal [facility] Comment on above: Result Comment: <0.3 4 UIU/ml HYPERTHYROID 0.34-5.60 UIU/ml EUTHYROID >5.60 UIU/ml HYPOTHYROID Performed By: #### C BC #### [facility] [address] [place] [address] Dr. Kaushik Palomares COVID Quick Testingon 2020 Result Negative [facility] Other Quick Strepon 06-17-2021 S. pyogenes Org specific cx Ql (Throat) Negative [employer] Other Quick Strep [facility] Other Urinalysis - AUTOMATEDon Appearance (U) cloudy [employer] Other Bilirubin Ql (U) Negative [employer] Other Color (U) yellow [facility] Other Glucose Ql (U) Negative [employer] Other Hemoglobin Ql (U) large [facility] [employer] Other Ketones Ql (U) Negative [employer] Other Leukocyte esterase Test strip Ql (U) trace [facility] Other Nitrite Ql (U) Positive [employer] Other pH (U) 5.5 [pH] [employer] Other Protein Ql (U) 100 [employer] Other Specific gravity (U) [Rel density] 1.025 [employer] Other Urobilinogen (U) [Mass/Vol] 0.2 mg/dL [facility] [employer] Other Urinalysis - AUTOMATED [facility] [employer] Other Urine Cultureon 05-31-2021 Urine Culture >100,000 [employer] Other Urine Culture <16 [facility] Other Urine Culture >16 [employer] Other Urine Culture <4 [employer] Other Urine Culture 8 [employer] Other Urine Culture <2 [employer] Other Urine Culture <1 [employer] Other Urine Culture >2 [employer] Other Urine Culture <0.5 [facility] [employer] Other Urine Culture >8 [employer] Other Urine Culture >4 [employer] Other Urine Culture <32 [employer] Other Urine Culture >2/38 [facility] [employer] Other Vital Signs Date Time Vital Sign Value 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 04-21-2024 14:31-0400 Body height 162.56 cm ROLL ON MANJosé Miguel Marc Work Phone: [facility] 04-21-2024 14:31-0400 Body mass index (BMI) [Ratio] 55 kg/m2 ROLL ON MANJosé Miguel Marc Work Phone: [facility] 04-21-2024 14:31-0400 Body weight 145.6 kg ROLL ON MANJosé Miguel Keaner Work Phone: [facility] 04-21-2024 14:31-0400 Diastolic blood pressure 88 mm[Hg] ROLL ON MANJosé Miguel Keaner Work Phone: [facility] 04-21-2024 14:31-0400 Heart rate 111 /min ROLL ON MANJosé Miguel Marc Work Phone: [facility] 04-21-2024 14:31-0400 SaO2% (BldA) [Mass fraction] 97 % ROLL ON MANJosé Miguel Marc Work Phone: [facility] 04-21-2024 14:31-0400 Systolic blood pressure 136 mm[Hg] ROSITA Marc Work Phone: [facility] 11-26-2023 08:40-0400 Body height 162.56 cm ROLL ON MANJosé Miguel Parksacher Work Phone: [facility] 11-26-2023 08:40-0400 Body mass index (BMI) [Ratio] 52.9 kg/m2 ROSITA Parksacher Work Phone: [facility] 11-26-2023 08:40-0400 Body weight 139.79 kg ROLL ON MANJosé Miguel Keaner Work Phone: [facility] 11-26-2023 08:40-0400 Diastolic blood pressure 79 mm[Hg] ROLL ON MANJosé Miguel Barclayrbacher Work Phone: [facility] 11-26-2023 08:40-0400 Heart rate 97 /min ROLL ON MANJosé Miguel ThaoManisha Denyrbacher Work Phone: [facility] 11-26-2023 08:40-0400 SaO2% (BldA) [Mass fraction] 99 % ROLL ON MANJosé Miguel ThaoManisha Denyrbacher Work Phone: [facility] 11-26-2023 08:40-0400 Systolic blood pressure 131 mm[Hg] ROLL ON MANJosé Miguel ThaoManisha Charlyacher Work Phone: [facility] 11-03-2023 14:06-0400 Body height 162.56 cm ROLL ON MANJosé Miguel Parksacher Work Phone: [facility] 11-03-2023 14:06-0400 Body mass index (BMI) [Ratio] 53.1 kg/m2 ROLL ON MANJosé Miguel ThaoManisha Charlyacher Work Phone: [facility] 11-03-2023 14:06-0400 Body weight 140.61 kg ROLL ON MAN Manisha Denyrbacher Work Phone: [facility] 11-03-2023 14:06-0400 Diastolic blood pressure 78 mm[Hg] ROLL ON MANJosé Miguel Barclayrbacher Work Phone: [facility] 11-03-2023 14:06-0400 Heart rate 105 /min ROLL ON MANJosé Miguel ColladoManisha Denyrbacher Work Phone: [facility] 11-03-2023 14:06-0400 SaO2% (BldA) [Mass fraction] 98 % ROLL ON MANJosé Miguel ColladoManisha Denyrbacher Work Phone: [facility] 11-03-2023 14:06-0400 Systolic blood pressure 118 mm[Hg] ROLL ON MANJosé Miguel Barclayrbacher Work Phone: [facility] 10-08-2023 10:50-0500 Body height 162.56 cm ROLL ON MANJosé Miguel Parksacher Work Phone: [facility] 10-08-2023 10:50-0500 Body weight 139.25 kg ROLL ON MANJosé Miguel Barclayrbacher Work Phone: [facility] 10-01-2023 09:20-0500 Body height 162.56 cm ROLL ON MANJosé Miguel Barclayrbacher Work Phone: [facility] 10-01-2023 09:20-0500 Body mass index (BMI) [Ratio] 53.6 kg/m2 ROLL ON MANJosé Miguel Parksacher Work Phone: [facility] 10-01-2023 09:20-0500 Body weight 141.69 kg ROLL ON MANJosé Miguel Barclayrbacher Work Phone: [facility] 10-01-2023 09:20-0500 Diastolic blood pressure 75 mm[Hg] ROLL ON MANJosé Miguel Barclayrbacher Work Phone: [facility] 10-01-2023 09:20-0500 Heart rate 85 /min ROLL ON MANJosé Miguel Parksacher Work Phone: [facility] 10-01-2023 09:20-0500 Respiratory rate 18 /min ROLL ON MANJosé Miguel Parksacher Work Phone: [facility] 10-01-2023 09:20-0500 SaO2% (BldA) [Mass fraction] 99 % ROLL ON MANJosé Miguel Barclayrbacher Work Phone: [facility] 10-01-2023 09:20-0500 Systolic blood pressure 123 mm[Hg] ROLL ON MANJosé Miguel Barclayrbacher Work Phone: [facility] 09-03-2023 08:00-0500 Body height 162.56 cm ROLL ON MANJosé Miguel Parksacher Work Phone: [facility] 09-03-2023 08:00-0500 Body weight 138.79 kg ROLL ON MAN Manisha Marc Work Phone: [facility] 09-03-2023 08:00-0500 Diastolic blood pressure 78 mm[Hg] ROLL ON MAN Manisha Charlyacher Work Phone: [facility] 09-03-2023 08:00-0500 Systolic blood pressure 118 mm[Hg] ROLL ON MAN Manisha Parksacher Work Phone: [facility] 08-19-2023 09:45-0500 Body height 162.56 cm Nely Cruz Other [facility] 08-13-2023 14:00-0500 Body height 162.56 cm Manisha Marc Other [facility] 08-13-2023 14:00-0500 Body mass index (BMI) [Ratio] 52.35 kg/m2 Manisha Marc Other [facility] [employer] Other 08-13-2023 14:00-0500 Body weight 138.35 kg Manisha Marc Other [facility] Other 08-13-2023 14:00-0500 Body weight 138.34 kg ROSITA Marc Work Phone: [facility] 08-13-2023 14:00-0500 Diastolic blood pressure 80 mm[Hg] Manisha Marc Other [facility] 08-13-2023 14:00-0500 SaO2% (BldA) [Mass fraction] 98 % Manisha Marc Other [facility] [employer] Other 08-13-2023 14:00-0500 Systolic blood pressure 114 mm[Hg] Manisha Marc Other [facility] 07-15-2023 07:45-0500 Body height 162.56 cm Celio Mullins Other [facility] 07-15-2023 07:45-0500 Body mass index (BMI) [Ratio] 52.98 kg/m2 Celio Mullins Other [facility] Other 07-15-2023 07:45-0500 Body weight 140.03 kg Celio Mullins Other [facility] Other 07-15-2023 07:45-0500 Body weight 140.02 kg ROSITA Marc Work Phone: [facility] 07-15-2023 07:45-0500 Diastolic blood pressure 66 mm[Hg] Celio Mullins Other [facility] 07-15-2023 07:45-0500 Respiratory rate 18 /min Celio Mullins Other [facility] Other 07-15-2023 07:45-0500 SaO2% (BldA) [Mass fraction] 98 % Celio Mullins Other [facility] Other 07-15-2023 07:45-0500 Systolic blood pressure 112 mm[Hg] Celio Mullins Other [facility] 07-07-2023 11:15-0500 Body height 162.56 cm Michelle Ernandez Other [facility] 07-07-2023 11:15-0500 Body mass index (BMI) [Ratio] 52.69 kg/m2 Michelle Ernandez Other [facility] Other 07-07-2023 11:15-0500 Body temperature 98 [degF] Michelle Ernandez Other [facility] Other 07-07-2023 11:15-0500 Body weight 139.26 kg Michelle Oma Other [facility] Other 07-07-2023 11:15-0500 Body weight 139.25 kg ROSITA Manisha Marc Work Phone: [facility] 07-07-2023 11:15-0500 Respiratory rate 20 /min Michelle Oma Other [facility] Other 07-07-2023 11:15-0500 SaO2% (BldA) [Mass fraction] 98 % Michelle Oma Other [facility] Other 06-29-2023 10:20-0500 Body height 162.56 cm Michelle Oma Other [facility] Other 06-29-2023 10:20-0500 Body mass index (BMI) [Ratio] 53.03 kg/m2 Michelle Oma Other [facility] Other 06-29-2023 10:20-0500 Body temperature 99.7 [degF] Michelle Oma Other [facility] Other 06-29-2023 10:20-0500 Body weight 140.16 kg Michelle Oma Other [facility] Other 06-29-2023 10:20-0500 Respiratory rate 19 /min Michelle Oma Other [facility] Other 06-29-2023 10:20-0500 SaO2% (BldA) [Mass fraction] 98 % Michelle Oma Other [facility] Other 06-11-2023 15:30-0400 Body height 162.56 cm Manisha Barclayfani Other [facility] Other 06-11-2023 15:30-0400 Body mass index (BMI) [Ratio] 53.79 kg/m2 Manisha Tari Other [facility] Other 06-11-2023 15:30-0400 Body weight 142.16 kg Manisha Charlymarycarmentad Other [facility] Other 06-11-2023 15:30-0400 Diastolic blood pressure 62 mm[Hg] Manisha Tari Other [facility] Other 06-11-2023 15:30-0400 SaO2% (BldA) [Mass fraction] 99 % Manisha Tari Other [facility] Other 06-11-2023 15:30-0400 Systolic blood pressure 126 mm[Hg] Manisha Tari Other [facility] Other 05-06-2023 13:40-0400 Body height 162.56 cm Casandra Hassan Other [facility] Other 05-06-2023 13:40-0400 Body mass index (BMI) [Ratio] 53.65 kg/m2 Casandra Hassan Other [facility] Other 05-06-2023 13:40-0400 Body temperature 98.4 [degF] Casandra Hassan Other [facility] Other 05-06-2023 13:40-0400 Body weight 141.8 kg Casandra Sonya Other [facility] Other 05-06-2023 13:40-0400 Diastolic blood pressure 81 mm[Hg] Casandra Tesfayeley Other [facility] Other 05-06-2023 13:40-0400 Respiratory rate 18 /min Casandra Tesfayeley Other [facility] Other 05-06-2023 13:40-0400 SaO2% (BldA) [Mass fraction] 95 % Casandra Tesfayeley Other [facility] Other 05-06-2023 13:40-0400 Systolic blood pressure 134 mm[Hg] Casandramila Hassan Other [facility] Other 04-30-2023 08:30-0400 Body height 162.56 cm Manisha Marc Other [facility] Other 04-30-2023 08:30-0400 Body mass index (BMI) [Ratio] 53.86 kg/m2 Manisha Marc Other [facility] Other 04-30-2023 08:30-0400 Body weight 142.34 kg Manisha Marc Other [facility] Other 04-30-2023 08:30-0400 Diastolic blood pressure 82 mm[Hg] Manisha Marc Other [facility] Other 04-30-2023 08:30-0400 SaO2% (BldA) [Mass fraction] 100 % Manisha Marc Other [facility] Other 04-30-2023 08:30-0400 Systolic blood pressure 120 mm[Hg] Manisha Tari Other [facility] Other 04-29-2023 07:00-0400 Body height 162.56 cm Nely madvertiset Other [facility] Other 04-29-2023 07:00-0400 Body mass index (BMI) [Ratio] 54.41 kg/m2 Nely madvertiset Other [facility] Other 04-29-2023 07:00-0400 Body weight 143.79 kg Nely Fitt Other [facility] Other 03-25-2023 13:45-0400 Body height 162.56 cm [employer] Other [facility] Other 03-25-2023 13:45-0400 Body mass index (BMI) [Ratio] 55.45 kg/m2 [employer] Other [facility] Other 03-25-2023 13:45-0400 Body weight 146.56 kg [employer] Other [facility] Other 03-25-2023 13:45-0400 Diastolic blood pressure 57 mm[Hg] [employer] Other [facility] Other 03-25-2023 13:45-0400 Respiratory rate 18 /min [employer] Other [facility] Other 03-25-2023 13:45-0400 SaO2% (BldA) [Mass fraction] 97 % [employer] Other [facility] Other 03-25-2023 13:45-0400 Systolic blood pressure 106 mm[Hg] Celio Mullins Other [facility] Other 02-11-2023 12:15-0400 Body height 163.83 cm Casandra Hassan Other [facility] Other 02-11-2023 12:15-0400 Body mass index (BMI) [Ratio] 54.88 kg/m2 Casandra Hassan Other [facility] Other 02-11-2023 12:15-0400 Body temperature 98 [degF] Casandra Hassan Other [facility] Other 02-11-2023 12:15-0400 Body weight 147.33 kg Casandra Hassan Other [facility] Other 02-11-2023 12:15-0400 Diastolic blood pressure 85 mm[Hg] Casandra Hassan Other [facility] Other 02-11-2023 12:15-0400 Respiratory rate 18 /min Casandra Hassan Other [facility] Other 02-11-2023 12:15-0400 SaO2% (BldA) [Mass fraction] 98 % Casandra Hassan Other [facility] Other 02-11-2023 12:15-0400 Systolic blood pressure 128 mm[Hg] Casandra Hassan Other [facility] Other 07-13-2022 11:15-0500 Body height 163.83 cm Michelle Ernandez Other [facility] Other 07-13-2022 11:15-0500 Body mass index (BMI) [Ratio] 51.54 kg/m2 Michelle Oma Other [facility] Other 07-13-2022 11:15-0500 Body temperature 96.6 [degF] Michelle Oma Other [facility] Other 07-13-2022 11:15-0500 Body weight 138.35 kg Michelle Oma Other [facility] Other 07-13-2022 11:15-0500 Respiratory rate 18 /min Michelle Oma Other [facility] Other 07-13-2022 11:15-0500 SaO2% (BldA) [Mass fraction] 96 % Michelle Moa Other [facility] Other 07-06-2021 13:00-0500 Body height 163.83 cm Michelle Oma Other [facility] Other 07-06-2021 13:00-0500 Body mass index (BMI) [Ratio] 49 kg/m2 Michelle Oma Other [facility] Other 07-06-2021 13:00-0500 Body temperature 97.5 [degF] Michelle Oma Other [facility] Other 07-06-2021 13:00-0500 Body weight 131.54 kg Michelle Oma Other [facility] Other 07-06-2021 13:00-0500 SaO2% (BldA) [Mass fraction] 96 % Michelle Haynesmond Other [facility] Other 06-17-2021 11:00-0400 Body height 163.83 cm Michelle Oma Other [facility] Other 06-17-2021 11:00-0400 Body mass index (BMI) [Ratio] 49.68 kg/m2 Michelle Oma Other [facility] Other 06-17-2021 11:00-0400 Body temperature 98.3 [degF] Michelle Oma Other [facility] Other 06-17-2021 11:00-0400 Body weight 133.36 kg Michelle Oma Other [facility] Other 06-17-2021 11:00-0400 Respiratory rate 18 /min Michelle Oma Other [facility] Other 06-17-2021 11:00-0400 SaO2% (BldA) [Mass fraction] 96 % Michelle Oma Other [facility] Other 05-31-2021 13:50-0400 Body height 163.83 cm Michelle Oma Other [facility] Other 05-31-2021 13:50-0400 Body mass index (BMI) [Ratio] 50.36 kg/m2 Michelle Oma Other [facility] Other 05-31-2021 13:50-0400 Body temperature 97.8 [degF] Michelle Oma Other [facility] Other 05-31-2021 13:50-0400 Body weight 135.17 kg Michelle Ernandez Other [facility] [employer] Other 05-31-2021 13:50-0400 Diastolic blood pressure 90 mm[Hg] Michelle Ernandez Other [facility] Other 05-31-2021 13:50-0400 Respiratory rate 18 /min Michelle Ernandez Other [facility] Other 05-31-2021 13:50-0400 SaO2% (BldA) [Mass fraction] 98 % Michelle Ernandez Other [facility] [employer] [facility] Other 05-31-2021 13:50-0400 Systolic blood pressure 150 mm[Hg] Michelle Ernandez Other [employer] Other Encounters Encounter Date Encounter Type Care Provider Facility Start: 05-13-2024 ambulatory Edward Richey acility:[facility] Start: 04-21-2024 End: 04-21-2024 ambulatory ROSITA Marc Work Phone: [facility] Work Phone: Start: 04-21-2024 End: 04-21-2024 Patient encounter procedure ROSITA Marc Work Phone: [facility] Physician [facility] Work Phone: Start: 04-12-2024 Non-patient / Non-visit ROSITA Marc Work Phone: [facility] Physician [facility] Professional [employer] Work Phone: Start: 04-03-2024 Registered Recurring ROSITA Marc Work Phone: [facility] Start: 03-16-2024 End: 03-16-2024 ambulatory MELA ANDERSON Not Available Start: 01-19-2024 End: 01-19-2024 ambulatory [facility] Start: 01-01-2024 Registered Recurring ROSITA Marc Work Phone: [facility] Start: 11-26-2023 End: 11-26-2023 ambulatory ROLL ON MANJosé Miguel Marc Work Phone: [facility] Work Phone: Start: 11-26-2023 End: 11-26-2023 Patient encounter procedure ROSITA Marc Work Phone: [facility] Physician [facility] Work Phone: Start: 11-03-2023 End: 11-03-2023 ambulatory ROSITA Marc Work Phone: [facility] Work Phone: Start: 11-03-2023 End: 11-03-2023 Patient encounter procedure ROLL ON MANJosé Miguel Marc Work Phone: [facility] Physician [facility] Work Phone: Start: 11-03-2023 End: 11-03-2023 ambulatory TOBIAS WATTERSZIO Not Available Start: 10-30-2023 Non-patient / Non-visit ROSITA Marc Work Phone: [facility] Physician [facility] Professional [employer] Work Phone: Start: 10-08-2023 End: 10-08-2023 Patient encounter procedure ROSITA Marc Work Phone: [facility] [place] Work Phone: Start: 10-08-2023 End: 10-08-2023 ambulatory ROSITA Marc Work Phone: [facility] Work Phone: Start: 10-06-2023 Non-patient / Non-visit ROSITA Marc Work Phone: [facility] Physician Group-[facility] Professional [facility] Work Phone: Start: 10-06-2023 End: 10-06-2023 ambulatory [facility] Start: 10-01-2023 End: 10-01-2023 Patient encounter procedure ROSITA Marc Work Phone: [facility] Physician Group-[facility] Work Phone: Start: 10-01-2023 End: 10-01-2023 ambulatory ROSITA Marc Work Phone: [facility] Work Phone: Start: 09-10-2023 Registered Recurring ROSITA Marc Work Phone: [facility] Start: 09-08-2023 End: 09-08-2023 ambulatory [facility] Start: 09-03-2023 End: 09-03-2023 Patient encounter procedure ROSITA Marc Work Phone: [facility] Physician Group- Start: 08-19-2023 IBT FOR OBESITY GROU P 2-10 30M Nely Cruz [facility] Start: 08-19-2023 End: 08-19-2023 ambulatory Manisha Marc [facility] Professional [employer] Other Start: 08-19-2023 Registered Recurring ROSITA Marc Work Phone: [facility] Work Phone: Start: 08-19-2023 End: 08-19-2023 Patient encounter procedure ROSITA Marc Work Phone: [facility] Work Phone: Start: 08-14-2023 Registered Recurring ROLL ON MAN Layla reyna Tari Work Phone: [facility] Start: 08-13-2023 End: 08-13-2023 ambulatory Manisha Tari Other [facility] Other Start: 08-13-2023 Office outpatient visit 15 minutes Manisha Marc [facility] Start: 08-13-2023 End: 08-13-2023 Patient encounter procedure ROLL ON MANJosé Miguel Marc Work Phone: [facility] Physician [facility] Work Phone: Start: 07-24-2023 End: 07-24-2023 ambulatory MELA ANDERSON Not Available Start: 07-21-2023 End: 07-21-2023 ambulatory Bud Combs MD Facility:[facility] Start: 07-19-2023 End: 07-19-2023 ambulatory ROSITA Thaonifer Tari Work Phone: [facility] Work Phone: Start: 07-19-2023 End: 07-19-2023 Patient encounter procedure ROSITA Manisha Tari Work Phone: [facility] Start: 07-15-2023 End: 07-15-2023 ambulatory Celio Mullins Other [facility] Other Start: 07-15-2023 Follow-up encounter Celio Mullins [facility] Start: 07-15-2023 End: 07-15-2023 Patient encounter procedure ROLL ON MANJosé Miguel ThaoManishaamita Marc Work Phone: [facility] Work Phone: Start: 07-07-2023 End: 07-07-2023 ambulatory Michelle Ernandez Other [facility] Other Start: 07-07-2023 Office outpatient visit 15 minutes Michelle Oma [facility] Start: 07-07-2023 End: 07-07-2023 Patient encounter procedure ROLL ON MANJosé Miguel Marc Work Phone: [facility]ician Group[facility] Work Phone: Start: 07-03-2023 Registered Recurring ROLL ON MANJosé Miguel Marc Work Phone: [facility] Start: 07-03-2023 End: 07-03-2023 Patient encounter procedure ROLL ON MANJosé Miguel Marc Work Phone: [facility] [place] Work Phone: Start: 07-03-2023 End: 07-03-2023 ambulatory ROSITA Marc Work Phone: [facility] Work Phone: Start: 07-01-2023 End: 07-01-2023 Patient encounter procedure ROLL ON MANJosé Miguel Marc Work Phone: [facility] [place] Work Phone: Start: 07-01-2023 End: 07-01-2023 ambulatory Manisha Marc Facility:[facility] Start: 06-29-2023 End: 06-29-2023 ambulatory Michelle Oma Other [facility] Other Start: 06-29-2023 Office outpatient visit 15 minutes Michelle Oma [facility] Start: 06-17-2023 Registered Recurring ROSITA Marc Work Phone: [facility] Management Work Phone: Start: 06-11-2023 End: 06-11-2023 ambulatory Manisha Marc Other [facility] Other Start: 06-11-2023 Office outpatient visit 25 minutes Manisha Tari [facility] Start: 05-06-2023 End: 05-06-2023 ambulatory Casandramila Hassan Other [facility] Other Start: 05-06-2023 Office outpatient visit 10 minutes Casandra Hassan [facility] Start: 05-01-2023 End: 05-01-2023 ambulatory Manisha Tari Other [facility] Other Start: 05-01-2023 Telephone encounter Manisha Parksbrian desai [facility] Start: 04-30-2023 End: 04-30-2023 ambulatory Manisha Tari Other [facility] Other Start: 04-30-2023 Encounter for genera l adult medical examination without abnormal findings Manisha Tari [facility] Start: 04-30-2023 Periodic preventive med est patient 18-39 yrs Manisha Marc [facility] Start: 04-29-2023 ([facility]) N Initial Provider Nely Pepe [facility] Start: 04-29-2023 End: 04-29-2023 ambulatory Nely Cruz Other [facility] Other Start: 03-25-2023 End: 03-25-2023 ambulatory Celio Mullins Other [facility] Other Start: 03-25-2023 Nutrition therapy Celio johns [facility] Start: 03-25-2023 Telephone encounter Celio guerrero [facility] Start: 03-14-2023 End: 03-14-2023 ambulatory Nely Cruz Other [facility] Other Start: 03-14-2023 Telephone encounter Nely Fitt [facility] Start: 02-11-2023 End: 02-11-2023 ambulatory Casandra Hassan Other [facility] Other Start: 02-11-2023 Office outpatient visit 15 minutes Casandra Hassan [facility] Start: 12-31-2022 End: 01-01-[address] TOBIAS OSCAR . Facility:[facility] Start: 11-26-2022 End: 11-27-[address] TOBIAS OSCAR . Facility:[facility] Start: 11-08-2022 End: 11-09-[address] BOOM ROD Facility:[facility] Start: 10-28-2022 End: 10-28-[address] TOBIAS OSCAR . Facility:[facility] Start: 07-13-2022 End: 07-13-2022 ambulatory Michelle Ernandez Other [facility] Other Start: 07-13-2022 Office outpatient visit 15 minutes Michelle Ernandez [facility] Start: 03-07-2022 End: 03-08-[address] BOOM ROD Facility:[facility] Start: 01-25-2022 Encounter for genera l adult medical examination without abnormal findings DR BOOM ROD [facility] Start: 01-21-2022 End: 01-22-[address] BOOM ROD Facility:[facility] Start: 01-21-2022 End: 01-22-2022 Encounter for general adult medical examination without abnormal findings DR BOOM ROD Facility:[facility] Start: 07-06-2021 End: 07-06-2021 ambulatory Michelle Ernandez Other [facility] Other Start: 07-06-2021 Office outpatient visit 15 minutes Michellenawaf Ernandez [facility] Start: 06-17-2021 Office outpatient visit 15 minutes Michelle Oma [facility] Start: 05-31-2021 Office outpatient visit 25 minutes Michelle Oma [facility] Start: 08-27-2018 End: 08-27-2018 ambulatory BRENT KINNEY Facility:[facility] Procedures Date Procedure Procedure Detail Performing Clinician Start: 10-08-2023 MRI of head ROLL ON MAN Heaven amita Marc Work Phone: Start: 05-31-2021 Piperacillin/tazobactam Michelle Oma Other Start: 08-27-2018 extraction, erupted tooth or exposed root (elevation and/or forceps removal) BRENT TROCONIS Start: 08-27-2018 removal of impacted tooth - soft tissue BRENT TROCONIS Start: 08-27-2018 Urine test visual color cmprsn meths BRENT TROCONIS Plan of Treatment Date Care Activity Detail Author Comprehensive metabo lic 2000 panel - Serum or Plasma [facility] enter Holter monitor study [facility] MR Unspecified body region F [facility] Immunizations Immunization Date Immunization Notes Care Provider Fa cility 03-03-2021 Do not use COVID-19 Pfizer 2 dose Manisha Marc Other [facility] 02-10-2021 Do not use COVID-19 Pfizer 2 dose Manisha Marc Other [facility] 08-03-2018 Toradol per 15 mg Michelle Dym ond Other [facility] Other Payers Date Payer Category Payer Self-pay [id number] 2022 Self-pay [id number] 2022 Private Health Insurance 1991 Unknown [id number] [id number]. 732 1991 Unknown [id number] 2.16.840.1.478630.3.579.2. 593 1991 Unknown [id number] 2.16.840.1.177003.3.579.2. 593 1991 Unknown [id number] 2.16.840.1.898592.3.579.2. 593 1991 Unknown [id number] 2.16.840.1.177934.3.579.2. 593 1991 Unknown [id number] 2.16.840.1.082267.3.579.2. 593 1991 Unknown [id number] 2.16.840.1.475011.3.579.2. 593 1991 Unknown [id number] 2.16.840.1.620030.3.579.2. 196 1991 Unknown [id number] 2.16.840.1.846452.3.579.2. 196 1991 Unknown [id number] 2.16.840.1.649751.3.579.2. 196 1991 Unknown [id number] 2.16.840.1.968110.3.579.2. 196 1991 Unknown [id number] 2.16.840.1.102674.3.579.2. 1259 1991 Unknown [id number] 2.16.840.1.673023.3.579.2. 1259 1991 Unknown [id number] 2.16.840.1.579741.3.579.2. 1259 1959 Medicaid [id number] 1959 Unknown [id number] [facility] [place] [id number] Unknown [id number] 2.16.840.1.355731.3.579.2. 531 Unknown [id number] 2.16.840.1.385340.3.579.2. 531 Unknown [id number] 2.16.840.1.818459.3.579.2. 531 Unknown [id number] 2.16.840.1.866218.3.579.2. 531 Unknown [id number] 2.16.840.1.505926.3.579.2. 531 Unknown [id number] 2.16.840.1.038435.3.579.2. 531 Unknown [id number] 2.16.840.1.996154.3.579.2. 531 Social History Date Type Detail Facility Unknown if ever smoked [facility] Other Sex Assigned At Sex Assigned At Bir th [facility] Other Start: 12-07-2021 End: 11-26-2023 Tobacco smoking status NHIS Never smoked tobacco (finding) [facility] Start: 1990 Sex Assigned At Female F [facility] Clinical Notes 05-31-2021 to 08-19-2023 Note Date [...] method for meal planning ; grocery shortcuts [facility] [employer] Other 12-27-2023 Evaluation note* Encounter Date Diagnosis [...] You have been given relevant education handouts. [facility] Other 11-28-2023 Evaluation note* Encounter Date Diagnosis [...] voice recognition software. Please excuse errors in memory care program director. Jun, Dietary surveillance and counseling (ICD-10 - [...] metformin 1000 mg total daily, managed by [employer] Jun, Asthma (ICD-10 - J45.909) Jun, Migraine (ICD-10 - G43.909) Jun, Primary hypertension (ICD-10 - I10) Currently on pharmacotherapy Potential for overtreatment given lightheadedness Jun, Other An additional 9 minutes was spent counseling the patient on behavior modification including proper nutrition and physical activity. [facility] Other 11-20-2023 Evaluation note* Encounter Date Diagnosis [...] until you feel better. You may take mioz-eol-dloutju Imodium for diarrhea as needed. Avoid dairy foods as well as greasy fried foods. Follow-up with your physician if no improvement in 2 to 3 days. May return to work on Jun, Diarrhea, unspecified type (ICD-10 - R19.7) Diarrhea: adult home care material was printed [facility] Other 11-12-2023 Evaluation note* Encounter Date Diagnosis [...] to 3-day Jun, Bronchitis (ICD-10 - J40) [facility] Other 10-25-2023 Evaluation note* Encounter Date Diagnosis Assessment Notes Treatment Notes Treatment Clinical Notes May, Degenerative lumbar disc (ICD-10 - M51.36) L4-5 Pt would like a referral to pain management regarding her chronic back pain. Her last x-ray of the lumbar spine was completed 10/2022 at [facility]--reviewed and in scanned documents. Referral placed. [...] disorder (ICD-10 - F31.81) Referral placed to [facility] for medication mangement. [facility] Other 09-19-2023 Evaluation note* Encounter Date Diagnosis Assessment Notes Treatment Notes Treatment Clinical Notes Apr, Exposure to head lice (ICD-10 - Z20.7) Discussed with patient exam is without any signs of current lice infection. May return to work tomorrow. Patient completed next treatment yesterday. Patient verbalized understanding. [facility] Other 09-14-2023 Evaluation note* Encounter Date Diagnosis Assessment Notes Treatment Notes Treatment Clinical Notes Apr, Primary hypertension (ICD-10 - I10) [facility] Other 09-13-2023 Evaluation note* Encounter Date Diagnosis [...] (ICD-10 - R73.01) Will obtain records from [facility] for most recent labs. Patient is [...] Low back pain, unspecified (ICD-10 - M54.50) [facility] Other 09-12-2023 Evaluation note* Encounter Date Diagnosis [...] 2) Aim for < 45 g carb/meal [facility] Other 08-08-2023 Evaluation note* Encounter Date Diagnosis [...] voice recognition software. Please excuse errors in memory care program director. Mar, Dietary surveillance and counseling (ICD-10 - [...] as sweet tea, replace ice cream with [place] Citizen yogurt, use protein shake in the a.m. [...] with the patient, and documenting clinical information. [facility] Other 06-27-2023 Evaluation note* Encounter Date Diagnosis [...] 7 days, sooner if significantly worsening symptoms. [facility] Other 11-26-2022 Evaluation note* Encounter Date Diagnosis [...] 3 days. Off work today and tomorrow [facility] Other 11-19-2021 Evaluation note* Encounter Date Diagnosis [...] writting by [facility] At [facility] document. [facility] Other 10-31-2021 Evaluation note* Encounter Date Diagnosis [...] writting by [facility] Home document. [facility] Other 10-14-2021 Evaluation note* Encounter Date Diagnosis Assessment Notes Treatment Notes Treatment Clinical Notes May, Dysuria (ICD-10 - R30.0) May, Urinary tract infection, site not specified (ICD-10 - N39.0) May, Hematuria, unspecified (ICD-10 - R31.9) [facility] Other Evaluation [facility]No [facility] Other evaluuvqqh noteNo assessment information available [facility] Work Phone: evaluation note* Diagnosis Onset Date Resolution Status Dietary surveillance and counseling acute Exercise counseling acute Food insecurity acute PCOS (polycystic ovarian syndrome) acute Prediabetes acute Severe obesity (BMI >= 40) a [facility] Work Phone: evaluation note* Diagnosis Onset Date Resolution Status Dietary surveillance and counseling acute Exercise counseling acute Food insecurity acute PCOS (polycystic ovarian syndrome) acute Prediabetes acute Severe obesity (BMI >= 40) a cute Lightheadedness acute Menorrhagia acute Palpitations acute [facility] Work Phone: evaluation note* Diagnosis Onset Date Resolution Status Dietary surveillance and counseling acute Exercise counseling acute Food insecurity acute PCOS (polycystic ovarian syndrome) acute Prediabetes acute Severe obesity (BMI >= 40) a cute Lightheadedness acute Menorrhagia acute Palpitations acute Dietary surveillance and counseling acute Exercise counseling acute Severe obesity (BMI >= 40) a [facility] Work Phone: Evaluation note* Diagnosis Onset Date Resolution Status Lightheadedness acute Menorrhagia acute Palpitations acute Dietary surveillance and counseling acute Exercise counseling acute Severe obesity (BMI >= 40) a [facility] Work Phone: evaluation note* Diagnosis Onset Date Resolution Status Aphasia acute History of seizures acute Memory loss acute Migraine acute [facility] Work Phone: history general Narrative - [...] History Hospitalized for blood l oss 2010 [facility] Other history general Narrative - Reported* Type [...] History Hospitalized for blood l oss 2010 [facility] Other history general Narrative - Reported* Type [...] History Hospitalized for blood l oss 2010 [facility] Other history general Narrative - Reported* Type [...] History Hospitalized for blood l oss 2010 [facility] Other history general Narrative - Reported* Type [...] History Hospitalized for blood l oss 2010 [facility] Other Hisrosw general Narrative - Reported* Type Description Date [...] History Hospitalized for blood l oss 2010 [facility] Other Hisueot general Narrative - Reported* Type Description Date [...] History Hospitalized for blood l oss 2010 [facility] Other Reason for referral (narrative)* Reason *06/20 would sherif ke a referral to pscyiatrist -- was recently diagnosed with bipolar and would like medication management. Diagnosis 1 Bipolar 2 disorder ( F31.81) Referral Organization [facility] Damion tsang Referring Provider First Name Manisha Referring Provider Last Name Tari Referring Provider Specialty Nurse Luist ernesto Referred Organization [facility] [place] Referred Address [address],[place], [place],[address] Referred Provider Specialty Psychiatry Referral Priority Routine General Notes Paola Henderson 01:25:30 PM >received today, not sure if [facility] does medication management, waiting for notes to be locked Paola Henderson 06/13/2023 10:34:39 AM >notes locked, referral faxed Clinical Notes p: [phone] f: [id number] [facility] Reason *FU 06/20 would li yaneli a referral to pain management for other options for pain control for back pain Diagnosis 1 Degenerative lumbar disc (M51.36) Referral Organization [facility] Damon tsang Referring Provider First Name Manisha Referring Provider Last Name Tari Referring Provider Specialty Nurse Noble orozco Referred Organization [facility] Referred Provider Yrn Parsons Referred Address [address], [place],[address] Referred Provider Specialty Pain Medicin e Referral Priority Routine General Notes Paola Henderson 01:21:23 PM >received today, waiting for notes to be locked Paola Henderson 06/13/2023 10:25:26 AM >notes locked, referral faxed Clinical Notes f: [phone] [facility] Other Summary Purpose Family History No Family [...] and content) DATE CREATED AUTHOR 08/27/2021 [employer] DATE CREATED AUTHOR AUTHOR'S ORGANIZ ATION 01/01/2023 [facility] DATE CREATED AUTHOR AUTHOR'S ORGANIZ ATION 01/30/2024 [facility] DATE CREATED AUTHOR AUTHOR'S ORGANIZ ATION 03/18/2024 [facility] DATE CREATED AUTHOR AUTHOR'S ORGANIZ ATION 05/22/2024 [facility] REASON FOR VISIT (unrecogniz ed [...] Member Role Status Dates Manisha Marc APRN [employer] Primary Care Provider Active Team Status: Active Member Role Status Dates Manisha Marc APRN [employer] Primary Care Provider, Attending Provider Active Team Status: Inactive Member Role Status Dates Manisha Marc APRN [employer] Primary Care Provider Active Celio Mullins DO Attending Provider Active Team Status: Inactive Member Role Status Dates Manisha Marc APRN [employer] Primary Care Provider Active Clinton Frazier MD Attending Provider Active Team Status: Inactive Member Role Status Dates Manisha Marc APRN [employer] Primary Care Provider Active Start: July 032022 End: July 03, 2023 Celio Mullins DO Attending Provider Active St art: July 03, 2023 End: July 03, 2023 Team Status: Active Member Role Status Dates Manisha Marc APRN [employer] Primary Care Provider Active Start: July 032022 Edward Gilmore MD Attending Provider Active Start: July 03, 2023 Team Status: Inactive Member Role Status Dates Michelle Ernandez [employer] Attending Provider Active S tart: July 07, 2023 End: July 07, 2023 Team Status: Inactive Member Role Status Dates Celio Mullins DO Attending Provider Active St art: July 15, 2023 End: July 15, 2023 Team Status: Inactive Member Role Status Dates Manisha Marc APRN [employer] Primary Care Provider Active Start: July End: July 19, 2023 Clinton Frazier MD Attending Provider Active Start: July 19, 2023 End: July 19, 2023 Team Status: Inactive Member Role Status Dates Manisha Marc APRN [employer] Attending Provider Act rafal Start: August 13, 2023 End: August 13, 2023 Team Status: Inactive Member Role Status Dates Nely Cage [facility] Attending Provider Active Start: August 19, 2023 End: August 19, 2023 Team Status: Active Member Role Status Dates Manisha Marc APRN [employer] Primary Care Provider, Attending Provider Active Start: August 19, 2023 Team Status: Inactive Member Role Status Dates Manisha Marc APRN [employer] Attending Provider Act rafal Start: September 03, 2023 End: September 03, 2023 Team Status: Inactive Member Role Status Dates Manisha Marc APRN [employer] Primary Care Provider Active Start: October 012023 End: October 01, 2023 Celio Mullins DO Attending Provider Active St art: October 01, 2023 End: October 01, 2023 Team Status: Active Member Role Status Dates Manisha Marc APRN [employer] Primary Care Provider Active Start: August 142022 Edward Gilmore MD Attending Provider Active Start: August 14, 2023 Team Status: Active Member Role Status Dates Manisha Marc APRN [employer] Primary Care Provider, Attending Provider Active Start: October 06, 2023 Team Status: Inactive Member Role Status Dates Manisha Marc APRN [employer] Primary Care Provider Active Start: October 082023 End: October 08, 2023 Akil Cox DO Attending Provider Active Start: October 08, 2023 End: October 08, 2023 Team Status: Active Member Role Status Dates Manisha Marc APRN [employer] Primary Care Provider, Attending Provider Active Start: October 30, 2023 Team Status: Inactive Member Role Status Dates Manisha Marc APRN [employer] Primary Care Provider, Attending Provider Active Start: November 03, 2023 End: November 03, 2023 Team Status: Active Member Role Status Dates Manisha Marc APRN [employer] Primary Care Provider Active Start: August Edward Gilmore MD Attending Provider Active Start: September 10, 2023 Team Status: Inactive Member Role Status Dates Manisha Marc [employer] Primary Care Provider Active Start: November 26, 2023 End: November 26, 2023 Celio Mullins DO Attending Provider Active St art: November 26, 2023 End: November 26, 2023 Team Status: Active Member Role Status Dates Manisha Marc APRN [employer] Primary Care Provider Active Start: January 01, 2024 Edward Gilmore MD Attending Provider Active Start: January 01, 2024 Team Status: Active Member Role Status Dates Manisha Marc APRN [employer] Primary Care Provider Active Start: April 03, 2024 Edward Gilmore MD Attending Provider Active Start: April 03, 2024 Team Status: Active Member Role Status Dates Manisha Marc APRN [employer] Primary Care Provider Active Start: April 12, 2024 Jaymiehannah Barbozated Griffin DO Attending Provider Active Start: April 12, 2024 Team Status: Inactive Member Role Status Dates Manisha Marc APRN [employer] Primary Care Provider, Attending Provider Active Start: [...] BE BASED ON THE PRIMARY CLINICAL RECORDS. [facility]. provides no warranty or guarantee of the accuracy or completeness of information in this document.
== END 2024-06-07 15:07 | disposition home or self-care (01) ==
LOC: SLEEP 15:06
PROVIDERS: PCP Nurse Practitioner Family; Visit Provider Nurse Practitioner Family
DX: E61.1 Iron deficiency (principal); G47.33 Obstructive sleep apnea (adult) (pediatric)
CPT/HCPCS: 36415; 83540; 83550; 95806

== ENCOUNTER 2024-06-07 15:32 | Outpatient (OUT) | payer OTHER, SELFPAY ==
--- OUTSIDE RECORDS SUMMARY | 2024-06-07 15:45 | XMS_ITS | CCD ---
Author Organization [facility] Care Team Providers Care Gis Web Developer Name Role Phone BRENT KINNEY Referring Unavailable BRENT KINNEY Attending Unavailable BRENT KINNEY Admitting Unavailable Michelle Ernandez Unavailable VIOLA, DR NUR Consulting Unavailable OWEGO, DR NUR Admitting Unavailable HOUSE, DR NUR [...] Attending Provider DO Celio Mullins Attending Provider [phone] ROSITA Marc Primary Care Provider MD Clinton Frazier Attending Provider ROSITA aMrc Attending Provider ROSITA Marc Primary Care Provider DO Celio Mullins Attending Provider MD Edward Gilmore Attending Provider MD Clinton Frazier Attending Provider ROSITA Marc Primary Care Provider MD Edward Gilmore Attending Provider DO Akil Cox Attending Provider ROSITA Marc Primary Care Provider MD Edward Gilmore Attending Provider [phone] ROSITA Marc Attending Provider DO Akil Cox Attending Provider ROSITA Marc Primary Care Provider MD Edward Gilmore Attending Provider ROSITA Marc Primary Care Provider MD Edward Gilmore Attending Provider [phone] Garret CROWLEY, Andrius Vytautcortez Attending Unavailable Garret CROWLEY, Andrius Vytautas Attending Unavailable Garret CROWLEY, Andrius Vytautas Attending Unavailable Garret CROWLEY, Andrius Vytautas Attending Unavailable TOBIAS OSCAR Attending Unavailable MELA ANDERSON Attending Unavailable MELA ANDERSON Attending Unavailable ROSITA Marc Primary Care Provider MD Edward Gilmore Attending Provider [phone] Manisha Marc Attending Unavailable Rohrbacher, Manisha Admitting [...] Unavailable Ivon Mullinsten M Attending Unavailable Denyrbacher, [facility] Care Unavailable Akil Cox Attending Unavailab Akil Avila Admitting Unavailab le Denyrbacher, [facility] Unavailable Allergies Allergy Classification Reported Allergen(s) Allergy Type Date of Onset Reaction(s) Facility (20 sources) Amoxicillin; Translations: [AMOXICILLIN] Drug Allergy 07-08-20 16 rash [facility] Repository (10 sources) Cefaclor; Translations: [CEFACLOR] Drug Allergy 04-14-20 15 Unknown Reaction, [facility] Repository (19 sources) Erythromycin; Translations: [ERYTHROMYCIN] Drug Allergy 04-14-20 15 [facility] Repository (19 sources) Cefaclor; Translations: [Ceclor] Drug Allergy 04-17-20 15 [facility] Repository (9 sources) Erythromycin Drug Allergy 04-17-20 15 Unknown Reaction, [facility] Repository (9 sources) Cephalosporins (Antibiotic); Translations: [Cephalosporins] Allergy to substance 12-10-19 22 Unknown Reaction, Rash [facility] (3 sources) Lactulose; Translations: [lactulose] Drug Allergy 02-12-20 20 Unknown Reaction [facility] (1 source) Erythromycin Drug Allergy 04-21-20 24 [facility] Repository Medications Current Medications Medication Drug Class(es) Dates Sig (Normalized) Sig (Original) [id number] 200 actuat albuterol 0.09 mg/actuat metered dose [...] Basophils (Bld) [#/Vol] 0.1 10 3/uL 0.0-0.1 [facility] Basophils/100 WBC Auto (Bld) on 04-12-2024 Basophils/100 WBC (Bld) 0.6 % 0.2-2.0 [facility] Buprenorphine [Presence] in Urineon 04-12-2024 Buprenorphine Ql (U) Negative NEGATIVE [facility] Comment on above: DRUG CLASS TEST SYST EM CUT-OFF CONCENTRATIONS ARE ASFOLLOWS:AMP (Amphetamine): 500 ng/mLBAR (Barbiturates): 200 ng/mLBZO (Benzodiazepines): 150 ng/mLBUP (Buprenorphine): 10 ng/mLCOC (Cocaine): 150 ng/mLmAMP (Methamphetamine): 500 ng/mLMTD (Methadone): 200 ng/mLOPI (Opiates): 100 ng/mLOXY (Oxycodone): 100 ng/mLPCP (Phencyclidine): 25 ng/mLTHC (Cannabinoids): 50 ng/mLTCA (Trycyclic Antidepressants): 300 ng/mL Eosinophils/100 WBC Auto (Bl d)on 04-12-2024 Eosinophils/100 WBC (Bld) 1.0 % 0.9-7.0 [facility] Erythrocyte distribution wid th Auto (RBC) [Ratio]on 04-12-2024 Erythrocyte distribution width (RBC) [Ratio] 17.4 % High 11.0-15.0 [facility] Estimated glomerular filtrat ion rate (GFR) non- Americanon 04-12-2024 GFR/1.73 sq M.predicted among non-blacks MDRD (S/P/Bld) [Vol rate/Area] mL/min/{1.73_m2} >=60 [facility] Globulin Calc (S) [Mass/Vol] on 04-12-2024 Globulin (S) [Mass/Vol] 4.1 g/dL [facility] HCG ( test) IA.rapi d Ql (U)on 04-12-2024 HCG ( test) Ql (U) Negative NEGATIVE [facility] Hematocrit Auto (Bld) [Volum e fraction]on 04-12-2024 Hematocrit (Bld) [Volume fraction] 37.9 % 36.0-48.0 [facility] Hemoglobin [Mass/volume] in Bloodon 04-12-2024 Hemoglobin (Bld) [Mass/Vol] 11.6 g/dL Low 12.0-16.0 [facility] Laboratory - Chemistry and C hemistry - challengeon 04-12-2024 Albumin [Mass/Vol] 3.3 g/dL Low 3.4-5.0 [facility] ALP [Catalytic activity/Vol] 75 U/L 46-116 [facility] ALT [Catalytic activity/Vol] 36 U/L 14-59 [facility] AST [Catalytic activity/Vol] 19 U/L 15-37 [facility] Bilirubin [Mass/Vol] 0.3 mg/dL 0.2-1.0 [facility] Calcium [Mass/Vol] 8.6 mg/dL 8.5-10.1 [facility] Chloride [Moles/Vol] 101 mmol/L 98-107 [facility] CO2 [Moles/Vol] 28.7 mmol/L 21.0-32.0 [facility] Creatinine [Mass/Vol] 0.70 mg/dL 0.55-1.02 [facility] GFR/1.73 sq M.predicted MDRD (S/P/Bld) [Vol rate/Area] mL/min/{1.73_m2} >=60 [facility] Glucose [Mass/Vol] 103 mg/dL 74-106 [facility] Potassium [Moles/Vol] 3.7 mmol/L 3.5-5.1 [facility] Protein [Mass/Vol] 7.4 g/dL 6.4-8.2 [facility] Sodium [Moles/Vol] 136 mmol/L 136-145 [facility] Urea nitrogen [Mass/Vol] 10.0 mg/dL 7.0-18.0 [facility] Urea nitrogen/Creatinine [Mass ratio] 14.3 mg/mg [facility] Bilirubin Ql (U) Negative NEGATIVE [facility] Glucose (U) [Mass/Vol] Negative NEGATIVE [facility] Ketones Ql (U) Negative NEGATIVE [facility] pH (U) 6.0 [pH] 5.0-9.0 [facility] Specific gravity (U) [Rel density] >=1.030 Abnormal 1.005-1.025 [facility] Urobilinogen Qn (U) 0.2 {Tamiko'U}/dL 0.2-1.0 [facility] Laboratory - Drug toxicology on 04-12-2024 Amphetamines Ql (U) Negative NEGATIVE [facility] Benzodiazepines Ql (U) Negative NEGATIVE [facility] Cocaine Ql (U) Negative NEGATIVE [facility] Opiates Ql (U) Negative NEGATIVE [facility] Phencyclidine Ql (U) Negative NEGATIVE [facility] Laboratory - Hematology and Cell countson 04-12-2024 Immature granulocytes/100 WBC (Bld) 0.3 % 0.0-0.5 [facility] Laboratory - Specimen inform ationon 04-12-2024 Appearance (U) CLEAR CLEAR [facility] Color (U) YELLOW YELLOW [facility] Laboratory - Urinalysison Leukocyte esterase Test strip Ql (U) Negative NEGATIVE [facility] Mucus Ql (Urine sed) TRACE Abnormal NONE SEEN [facility] Nitrite Ql (U) Negative NEGATIVE [facility] Protein Ql (U) Negative NEG/TRACE [facility] Leukocytes [#/volume] correc carmelita for nucleated erythrocytes in Blood by Automated counon 04-12-2024 WBC corrected for nucl RBC Auto (Bld) [#/Vol] 9.9 10 3/uL 4.0-11.0 [facility] Lymphocytes Auto (Bld) [#/Vo l]on 04-12-2024 Lymphocytes (Bld) [#/Vol] 3.5 10 3/uL 1.2-3.8 [facility] Lymphocytes/100 WBC Auto (Bl d)on 04-12-2024 Lymphocytes/100 WBC (Bld) 35.5 % 20.5-60.0 [facility] MCH Auto (RBC) [Entitic mass ]on 04-12-2024 MCH (RBC) [Entitic mass] 24.5 pg Low 26.7-34.0 [facility] MCHC Auto (RBC) [Mass/Vol]on 04-12-2024 MCHC (RBC) [Mass/Vol] 30.6 g/dL 29.9-35.2 [facility] MCV Auto (RBC) [Entitic vol] on 04-12-2024 MCV (RBC) [Entitic vol] 80.1 fL Low 81.0-99.0 [facility] Methadone [Presence] in Urin e by Screen methodon 04-12-2024 Methadone Screen Ql (U) Negative NEGATIVE [facility] Monocytes Auto (Bld) [#/Vol] on 04-12-2024 Monocytes (Bld) [#/Vol] 0.5 10 3/uL 0.3-0.8 [facility] Monocytes/100 WBC Auto (Bld) on 04-12-2024 Monocytes/100 WBC (Bld) 4.7 % 1.7-12.0 [facility] Neutrophils Auto (Bld) [#/Vo l]on 04-12-2024 Neutrophils (Bld) [#/Vol] 5.7 10 3/uL 1.4-6.5 [facility] Neutrophils/100 WBC Auto (Bl d)on 04-12-2024 Neutrophils/100 WBC (Bld) 57.9 % 43.0-75.0 [facility] No Panel Informationon 04-12 Acetaminophen Level <2.0 ug/mL Low 10.0-30.0 [facility] Eosinophils # (Auto) 0.1 10 3/uL 0.0-0.7 [facility] Ethyl Alcohol Level <3 mg/dL [facility] Comment on above: NOTE: 80 mg/dl is th e legal limit for a blood alcohol level Immature Granulocyte # (Auto) 0.03 10 3/uL 0.00-0.03 [facility] Salicylates Level <2.8 mg/dL <=19.9 [facility] Urine Bacteria SMALL #/HPF Abnormal NONE SEEN [facility] Urine Barbiturates Screen Negative NEGATIVE [facility] Urine Culture Reflexed YES [facility] Urine Marijuana (THC) Screen Negative NEGATIVE [facility] Urine Methamphetamines Screen Negative NEGATIVE [facility] Urine Occult Blood Negative NEGATIVE [facility] Urine Other Casts NONE SEEN #/LPF NONE SEEN [facility] Urine Other Crystals None Seen #/HPF None Seen [facility] Urine RBC 0-2 #/HPF 0-2 [facility] Urine Squamous Epithelial Cells FEW #/LPF Abnormal NONE/RARE [facility] Urine Transitional Epithelial Cells RARE #/LPF Abnormal NONE SEEN [facility] Urine WBC 2-5 #/HPF Abnormal NONE SEEN [facility] Platelet mean volume Auto (B ld) [Entitic vol]on 04-12-2024 Platelet mean volume (Bld) [Entitic vol] 10.2 fL 9.5-13.5 [facility] Platelets Auto (Bld) [#/Vol] on 04-12-2024 Platelets (Bld) [#/Vol] 299 10 3/uL 150-450 [facility] RBC Auto (Bld) [#/Vol]on RBC (Bld) [#/Vol] 4.73 10 6/uL 4.20-5.40 [facility] Serum or plasma albumin/glob ulin mass ratioon 04-12-2024 Albumin/Globulin [Mass ratio] 0.8 {ratio} [facility] Serum or plasma anion gap de terminationon 04-12-2024 Anion gap [Moles/Vol] 10.0 mmol/L [facility] Urine tricyclic antidepressa nt measurementon 04-12-2024 Tricyclic antidepressants (U) [Mass/Vol] Negative NEGATIVE [facility] oxyCODONE+oxyMORphone [Prese nce] in Urine by Screen methodon 04-12-2024 oxyCODONE+oxyMORphone Screen Ql (U) Negative NEGATIVE [facility] Basophils Auto (Bld) [#/Vol] on 11-03-2023 Basophils (Bld) [#/Vol] 0.0 10 3/uL 0.0-0.1 [facility] Basophils/100 WBC Auto (Bld) on 11-03-2023 Basophils/100 WBC (Bld) 0.5 % 0.2-2.0 [facility] Eosinophils/100 WBC Auto (Bl d)on [...] (S) [Mass/Vol] 4.0 g/dL [facility] Hematocrit Auto (Bld) [Volum e [...] HPV types (16,18,31,33,35,39,45,51,52,56,58,59,66,68)without differentiation.Performed at: = - [facility] [id number] Director: Monse Cardona MD, Phone: [phone] at: [facility] [id number] Director: Monse Cardona MD, Phone: [phone] Iron binding capacity [Mass/ volume] in Serum or Plasmaon 11-03-2023 Iron binding capacity [Mass/Vol] 512.0 ug/dL 250.0-450.0 [facility] Iron saturation [Mass Fracti on] in Serum or Plasmaon 11-03-2023 Iron saturation [Mass fraction] 2.7 % [facility] Laboratory - Chemistry and C hemistry - challengeon 11-03-2023 Albumin [Mass/Vol] 3.1 g/dL 3.4-5.0 [facility] ALP [Catalytic activity/Vol] 63 U/L 46-116 [facility] ALT [Catalytic activity/Vol] 29 U/L 14-59 [facility] AST [Catalytic activity/Vol] 18 U/L 15-37 [facility] Bilirubin [Mass/Vol] 0.2 mg/dL 0.2-1.0 [facility] Calcium [Mass/Vol] 8.7 mg/dL 8.5-10.1 [facility] Chloride [Moles/Vol] 102 mmol/L 98-107 [facility] CO2 [Moles/Vol] 27.6 mmol/L 21.0-32.0 [facility] Creatinine [Mass/Vol] 0.70 mg/dL 0.55-1.02 [facility] Ferritin [Mass/Vol] 6.0 ng/mL 8.0-252.0 [facility] GFR/1.73 sq M.predicted MDRD (S/P/Bld) [Vol rate/Area] mL/min/{1.73_m2} >=60 [facility] Glucose [Mass/Vol] 103 mg/dL 74-106 [facility] Iron [Mass/Vol] 14.0 ug/dL 50.0-170.0 [facility] Potassium [Moles/Vol] 3.8 mmol/L 3.5-5.1 [facility] Protein [Mass/Vol] 7.1 g/dL 6.4-8.2 [facility] Sodium [Moles/Vol] 139 mmol/L 136-145 [facility] Urea nitrogen [Mass/Vol] 11.0 mg/dL 7.0-18.0 [facility] [...] MCHC (RBC) [Mass/Vol] 29.9 g/dL 29.9-35.2 [facility] MCV Auto (RBC) [Entitic vol] on 11-03-2023 MCV (RBC) [Entitic vol] 82.9 fL 81.0-99.0 [facility] Monocytes Auto (Bld) [#/Vol] on 11-03-2023 Monocytes (Bld) [#/Vol] 0.4 10 3/uL 0.3-0.8 [facility] Monocytes/100 WBC Auto (Bld) on 11-03-2023 Monocytes/100 WBC (Bld) 5.6 % 1.7-12.0 [facility] Neutrophils Auto (Bld) [#/Vo l]on 11-03-2023 Neutrophils (Bld) [#/Vol] 4.3 10 3/uL 1.4-6.5 [facility] Neutrophils/100 WBC Auto (Bl d)on 11-03-2023 Neutrophils/100 WBC (Bld) 58.5 % 43.0-75.0 [facility] No Panel Informationon 11-02 Eosinophils # (Auto) 0.1 10 3/uL 0.0-0.7 [facility] Immature Granulocyte # (Auto) 0.03 10 3/uL 0.00-0.03 [facility] HPV High Risk Other Comment Note . [facility] Comment on above: TESTS RESULT FLAG UN ITS REF RANGE LAB -DIAGNOSIS: 02 NEGATIVE FOR INTRAEPITHELIAL LESION OR MALIGNANCY.Specimen adequacy: 02 Satisfactory for evaluation. Endocervical and/or squamous metaplastic cells (endocervical component) are present.Performed by: 02 Beverly Escalante, Utility Repairer (ASCP). 02Note: Note 02 The Pap smear [...] <-Panic Low,>-Panic High,A-Abnormal,AA-Critical Abnormal ------Performed at:[address] [id number] Monse Cardona MD, Reference Lab Test Patient Age Note . [facility] Comment on above: TESTS RESULT FLAG UN ITS REF RANGE LAB - Clinician Provided Cytology Information Source.............Cervix;Endocervix No. of containers..01 ThinPrep VialAge Jean-Pierre YOON Elise... 31 FLAG LEGEND: L-Low Normal,H-High Normal,LL-Alert Low,HH-Alert High <-Panic Low,>-Panic High,A-Abnormal,AA-Critical Abnormal ------Performed at:01 =[facility] [address] [place] [address] Monse Cardona MD, Platelet mean volume Auto (B ld) [Entitic vol]on 11-03-2023 Platelet mean volume (Bld) [Entitic vol] 9.6 fL 9.5-13.5 [facility] Platelets Auto (Bld) [#/Vol] on 11-03-2023 Platelets (Bld) [#/Vol] 323 10 3/uL 150-450 [facility] RBC Auto (Bld) [#/Vol]on RBC (Bld) [#/Vol] 3.15 10 6/uL 4.20-5.40 [facility] Serum or plasma albumin/glob ulin mass ratioon 11-03-2023 Albumin/Globulin [Mass ratio] 0.8 {ratio} [facility] Serum or plasma anion gap de terminationon 11-03-2023 Anion gap [Moles/Vol] 13.2 mmol/L [facility] Basophils Auto (Bld) [#/Vol] on 10-30-2023 Basophils (Bld) [#/Vol] 0.0 10 3/uL 0.0-0.1 [facility] Basophils/100 WBC Auto (Bld) on 10-30-2023 Basophils/100 WBC (Bld) 0.6 % 0.2-2.0 [facility] Eosinophils/100 WBC Auto (Bl d)on [...] challengeon 10-30-2023 Calcium [Mass/Vol] 8.5 mg/dL 8.5-10.1 [facility] Chloride [Moles/Vol] 101 mmol/L 98-107 [facility] CO2 [Moles/Vol] 28.8 mmol/L 21.0-32.0 [facility] Creatinine [Mass/Vol] 0.62 mg/dL 0.55-1.02 [facility] GFR/1.73 sq M.predicted MDRD (S/P/Bld) [Vol rate/Area] mL/min/{1.73_m2} >=60 [facility] Glucose [Mass/Vol] 104 mg/dL 74-106 [facility] Potassium [Moles/Vol] 4.0 mmol/L 3.5-5.1 [facility] Sodium [Moles/Vol] 137 mmol/L 136-145 [facility] Urea nitrogen [Mass/Vol] 8.0 mg/dL 7.0-18.0 [facility] [...] MCHC (RBC) [Mass/Vol] 29.7 g/dL 29.9-35.2 [facility] MCV Auto (RBC) [Entitic vol] on 10-30-2023 MCV (RBC) [Entitic vol] 84.2 fL 81.0-99.0 [facility] Monocytes Auto (Bld) [#/Vol] on 10-30-2023 Monocytes (Bld) [#/Vol] 0.3 10 3/uL 0.3-0.8 [facility] Monocytes/100 WBC Auto (Bld) on 10-30-2023 Monocytes/100 WBC (Bld) 3.7 % 1.7-12.0 [facility] Neutrophils Auto (Bld) [#/Vo l]on 10-30-2023 Neutrophils (Bld) [#/Vol] 4.6 10 3/uL 1.4-6.5 [facility] Neutrophils/100 WBC Auto (Bl d)on 10-30-2023 Neutrophils/100 WBC (Bld) 63.9 % 43.0-75.0 [facility] No Panel Informationon 10-29 Eosinophils # (Auto) 0.1 10 3/uL 0.0-0.7 [facility] Immature Granulocyte # (Auto) 0.03 10 [...] (Bld) [#/Vol] 3.16 10 6/uL 4.20-5.40 [facility] Serum or plasma anion gap de terminationon 10-30-2023 Anion gap [Moles/Vol] 11.2 mmol/L [facility] MR head/brain wo/w conon MR head/brain wo/[place] [address] MRI Report Signed Patient: Ashly Mehta MR#: [id number] 8 : 1990 Acct:[id number] Age/Sex: 33 / F ADM Date: 10/08/23 Loc: MR Room: Type: [facility] Attending Dr: Akil Cox DO Copies to: [...] Ivan Holliday M.D.10/08/2023 4:38 PM Dictation Location: [place] [address] Transcribed By: [facility] 10/08/23 1638 Dictated By: Ivan Holliday II, MD 10/08/23 1630 Signed By: 10/08/23 1638 Normal [facility] HCG ( test) IA.rapi d Ql (U)on 10-06-2023 HCG ( test) Ql (U) Negative NEGATIVE [facility] COVID + FLU Quick Testingon 07-07-2023 SARS-CoV-2 (COVID-19) RNA SURI+probe Ql (Unsp spec) Negative [facility] [employer] Other COVID + FLU Quick Testing Negative [facility] [employer] Other Alanine aminotransferase [En zymatic activity/volume] in Serum or PlasmaOrdered By: Celio Mullins on 07-03-2023 ALT [Catalytic activity/Vol] 22 U/L Normal 7- [facility] Comment on above: Performed By: #### L IPID, CMP #### [address] Albumin [Mass/volume] in Ser um or [...] #### L IPID, CMP #### [facility] [address] [place] [address] [place] Aspartate aminotransferase [ Enzymatic activity/volume] in Serum or PlasmaOrdered By: Celio Mullins on 07-03-2023 AST [Catalytic activity/Vol] 18 U/L Normal 13-39 [facility] Comment on above: Performed By: #### L IPID, CMP #### [place] [address] [place] Bilirubin.total [Mass/volume ] in Serum or PlasmaOrdered By: Celio Mullins on 07-03-2023 Bilirubin [Mass/Vol] 0.4 mg/dL Normal 0.3-1.0 [facility] Comment on above: Performed By: #### L IPID, CMP #### [place] [address] [place] Calcium [Mass/volume] in Ser um or PlasmaOrdered By: Celio Mullins on 07-03-2023 Calcium [Mass/Vol] 9.4 mg/dL Normal 8.6-10.3 [facility] Comment on above: Performed By: #### L IPID, CMP #### [facility] [address] [place] [address] [place] Carbon dioxide, total [Moles /volume] in Serum or PlasmaOrdered By: Celio Mullins on 07-03-2023 CO2 [Moles/Vol] 30.1 mmol/L Normal 21.0-31.0 [facility] Comment on above: Performed By: #### L IPID, CMP #### [place] [address] [place] Chloride [Moles/volume] in S marta or PlasmaOrdered By: Celio Mullins on 07-03-2023 Chloride [Moles/Vol] 105 mmol/L Normal 98-107 [facility] Comment on above: Performed By: #### L IPID, CMP #### [facility] [address] [place] [address] [place] Cholesterol [Mass/volume] in Serum or PlasmaOrdered By: Celio Mullins on 07-03-2023 Cholesterol [Mass/Vol] 126 mg/dL Low 140-200 [facility] Comment on above: Chol less than 200 m g/dl low riskChol 201-239 mg/dl borderline riskChol 240 mg/dl and greater high risk Result Comment: Chol less than 200 mg/dl low risk Chol 201-239 mg/dl borderline risk Chol 240 mg/dl and greater high risk Performed By: #### L IPID, CMP #### [facility] [address] [place] [address] [place] Cholesterol in LDL Calc [Mas s/Vol]Ordered [...] 4.4 g/dL Normal 3.5-5.7 [facility] Comment on above: Performed By: #### L IPID, CMP #### [facility] [address] [place] [address] [place] GFR/1.73 sq M.predicted MDRD (S/P/Bld) [Vol rate/Area] mL/min/{1.73_m2} Normal [facility] Comment on above: Performed By: #### L IPID, CMP #### [facility] [address] [place] [address] [place] Creatinine [Mass/volume] in Serum or PlasmaOrdered By: Celio Mullins on 07-03-2023 Creatinine [Mass/Vol] 0.63 mg/dL Normal 0.60-1.20 [facility] Comment on above: Performed By: #### L IPID, CMP #### [facility] [address] Glucose [Mass/volume] in Ser um or PlasmaOrdered By: Celio Mullins on 07-03-2023 Glucose [Mass/Vol] 97 mg/dL Normal 70-100 [facility] Comment on above: ADA recommended refe rence rangeRandom Glucose Reference Range is dependent on time and content of last meal. Glucose of more than 200 mg/dL in a nonstressed, ambulatory subject supports the diagnosis of Diabetes Mellitus. Result Comment: [place] om Glucose Reference Range is dependent on time and content of last meal. Glucose of more than 200 mg/dL in a nonstressed, ambulatory subject supports the diagnosis of Diabetes Mellitus. ADA recommended reference range Performed By: #### L IPID, CMP #### [facility] [address] Lipid Panelon 07-03-2023 LDL Cholesterol,Calculated 69 mg/dL Normal 0-100 [facility] Comment on above: Result Comment: LDL ATP III CLASSIFICATION LDL less than 100 mg/dL Optimal LDL 100-129 mg/dL Near or above optimal LDL 130-159 mg/dL Borderline high LDL 160-189 mg/dL High LDL greater than 189 mg/dL Very high Performed By: #### L IPID, CMP #### [facility] [address] Triglyceride w/Reflex 92 mg/dL Normal 0-149 [facility] Comment on above: Result Comment: TRIG ATP III CLASSIFICATION TRIG less than 150 mg/dL Normal TRIG 150-199 mg/dL Borderline high TRIG 200-500 mg/dL High TRIG greater than 500 mg/dL Very high Standard traceable to the Center for Disease Conrtrol and Prevention (CDC) test method. Performed By: #### L IPID, CMP #### [facility] [address] VLDL CHOLESTEROL 18 mg/dL Normal [facility] Comment on above: Performed By: #### L IPID, CMP #### [facility] [facility] [address] [place] [address] No Panel InformationOrdered By: Celio Mullins on 07-03-2023 Estimated GFR (CKD-EPI) > 60.0 mL/Min [facility] Creatinine Clearance (Chem N/A [facility] Potassium [Moles/volume] in Serum or PlasmaOrdered By: Celio Mullins on 07-03-2023 Potassium [Moles/Vol] 4.3 mmol/L Normal 3.5-5.1 [facility] Comment on above: Performed By: #### L IPID, CMP #### [address] Protein [Mass/volume] in Ser um or PlasmaOrdered By: Celio Mullins on 07-03-2023 Protein [Mass/Vol] 7.5 g/dL Normal 6.4-8.9 [facility] Comment on above: Performed By: #### L IPID, CMP #### [facility] [address] [place] [address] Serum globulin measurement b y calculation (mass/volume)Ordered By: Celio Mullins on 07-03-2023 Globulin (S) [Mass/Vol] 3.1 g/dL Normal [facility] Comment on above: Performed By: #### L IPID, CMP #### [facility] [address] [place] [address] Serum or plasma albumin/glob ulin mass ratioOrdered By: Celio Mullins on 07-03-2023 Albumin/Globulin [Mass ratio] 1.4 {ratio} Normal [facility] Comment on above: Performed By: #### L IPID, CMP #### [facility] [address] [place] [address] Serum or plasma anion gap de terminationOrdered By: Celio Mullins on 07-03-2023 Anion gap [Moles/Vol] 10.2 mmol/L Normal 6.0-15.0 [facility] Comment on above: Performed By: #### L IPID, CMP #### [facility] [address] [place] [address] Serum or plasma high density lipoprotein (HDL) [...] #### L IPID, CMP #### [facility] [address] Serum or plasma total choles terol/high density lipoprotein (HDL) cholesterol mass ratOrdered By: Celio Mullins on 07-03-2023 Cholesterol.total/Mali sterol in HDL [Mass ratio] 3.2 {ratio} Normal <5.0 [facility] Comment on above: Result Comment: PERF ORMED BY: [place] [address] PATHOLOGIST INDOOR LANDSCAPER/GARDENER NESHA MAIER M.D. Performed By: #### L IPID, CMP #### [facility] [address] Sodium [Moles/volume] in Ser um or PlasmaOrdered By: Celio Mullins on 07-03-2023 Sodium [Moles/Vol] 141 mmol/L Normal 136-145 [facility] Comment on above: Performed By: #### L IPID, CMP #### [facility] [address] Triglyceride [Mass/volume] i n Serum or PlasmaOrdered By: Celio Mullins on 07-03-2023 Triglyceride [Mass/Vol] 92 mg/dL 0-149 F [facility] Comment on above: TRIG ATP [...] #### L IPID, CMP #### [facility] [address] [place] [address] [place] A1C with Estimated Average G gee 07-01-2023 Glucose [Mass/Vol] 117 mg/dL Normal [facility] Comment on above: Order Comment: Reaso n for Exam Severe obesity (BMI >= 40);PCOS (polycystic ovarian syndrome Result Comment: PERF ORMED BY: [place] [address] PATHOLOGIST INDOOR LANDSCAPER/GARDENER NESHA MAIER M.D. Performed By: #### A POB, LIPA #### [facility] , #### CMP, A1C WT eA #### [facility] [address] [place] [address] Alanine aminotransferase [En zymatic activity/volume] in Serum or PlasmaOrdered By: Celio Mullins on 07-01-2023 ALT [Catalytic activity/Vol] 21 U/L Normal 7-52 [facility] Comment on above: Order Comment: Reaso n for Exam Severe obesity (BMI >= 40);PCOS (polycystic ovarian syndrome NON FASTING Performed By: #### A POB, LIPA #### [facility] , #### CMP, A1C WT eA #### [place] [address] [place] Albumin [Mass/volume] in Ser um or [...] NON FASTING Result Comment: PERF ORMED BY: [place] [id number] PATHOLOGIST INDOOR LANDSCAPER/GARDENER NESHA MAIER M.D. Performed By: #### A POB, LIPA #### [facility] , #### CMP, A1C WTH eA #### [facility] [address] [place] [id number] [facility] Apolipoprotein B [Mass/volum e] in Serum or [...] High Risk <90 Moderate Risk <90Performed at: [facility] [employer] [address] [id number] Director: Jeanna Case MD, Phone: [phone] Order Comment: Reaso n for Exam Severe obesity (BMI >= 40);PCOS (polycystic ovarian syndrome Result Comment: Hedy rable < 90 Borderline High 90 - 99 High 100 - 130 Very High >130 ASCVD RISK THERAPEUTIC TARGET CATEGORY APO B (mg/dL) Very High Risk <80 (if extreme risk <70) High Risk <90 Moderate Risk <90 Performed at: [facility] [id number] Director Financial Services: Jeanna Case MD, Phone: [phone] PERFORMED BY: [facility] [address] [place] [id number] PATHOLOGIST INDOOR LANDSCAPER/GARDENER NESHA MAIER M.D. Performed By: #### A POB, LIPA #### [facility] , #### CMP, A1C WTH eA #### [facility] [address] [place] [address] [place] Aspartate aminotransferase [ Enzymatic activity/volume] in Serum or PlasmaOrdered By: Celio Mullins on 07-01-2023 AST [Catalytic activity/Vol] 19 U/L Normal 13-39 [facility] Comment on above: Order Comment: Reaso n for Exam Severe obesity (BMI >= 40);PCOS (polycystic ovarian syndrome NON FASTING Performed By: #### A POB, LIPA #### [facility] , #### CMP, A1C WTH eA #### [facility] [address] Bilirubin.total [Mass/volume ] in Serum or PlasmaOrdered By: Celio Mullins on 07-01-2023 Bilirubin [Mass/Vol] 0.4 mg/dL Normal 0.3-1.0 [facility] Comment on above: Order Comment: Reaso n for Exam Severe obesity (BMI >= 40);PCOS (polycystic ovarian syndrome NON FASTING Performed By: #### A POB, LIPA #### [facility] , #### CMP, A1C WT eA #### [facility] [address] Calcium [Mass/volume] in Ser um or PlasmaOrdered By: Celio Mullins on 07-01-2023 Calcium [Mass/Vol] 9.8 mg/dL Normal 8.6-10.3 [facility] Comment on above: Order Comment: Reaso n for Exam Severe obesity (BMI >= 40);PCOS (polycystic ovarian syndrome NON FASTING Performed By: #### A POB, LIPA #### [facility] , #### CMP, A1C WTH eA #### [facility] [address] [place] [address] [place] Carbon dioxide, total [Moles /volume] in Serum or PlasmaOrdered By: Celio Mullins on 07-01-2023 CO2 [Moles/Vol] 25.3 mmol/L Normal 21.0-31.0 [facility] Comment on above: Order Comment: Reaso n for Exam Severe obesity (BMI >= 40);PCOS (polycystic ovarian syndrome NON FASTING Performed By: #### A POB, LIPA #### [facility] , #### CMP, A1C WTH eA #### [facility] [address] Chloride [Moles/volume] in S marta or PlasmaOrdered By: Celio Mullins on 07-01-2023 Chloride [Moles/Vol] 105 mmol/L Normal 98-107 [facility] Comment on above: Order Comment: Reaso n for Exam Severe obesity (BMI >= 40);PCOS (polycystic ovarian syndrome NON FASTING Performed By: #### A POB, LIPA #### [facility] , #### CMP, A1C WT eA #### [address] Comprehensive Metabolic Pane landon 07-01-2023 Albumin [Mass/Vol] 4.6 g/dL Normal 3.5-5.7 [facility] Comment on above: Order Comment: Reaso n for Exam Severe obesity (BMI >= 40);PCOS (polycystic ovarian syndrome NON FASTING Performed By: #### A POB, LIPA #### [facility] , #### CMP, A1C WTH eA #### [place] [address] [place] GFR/1.73 sq M.predicted MDRD (S/P/Bld) [Vol rate/Area] mL/min/{1.73_m2} Normal [facility] Comment on above: Order Comment: Reaso n for Exam Severe obesity (BMI >= 40);PCOS (polycystic ovarian syndrome NON FASTING Performed By: #### A POB, LIPA #### [facility] , #### CMP, A1C WTH eA #### [place] [address] [place] Creatinine [Mass/volume] in Serum or PlasmaOrdered By: Celio Mullins on 07-01-2023 Creatinine [Mass/Vol] 0.64 mg/dL Normal 0.60-1.20 [facility] Comment on above: Order Comment: Reaso n for Exam Severe obesity (BMI >= 40);PCOS (polycystic ovarian syndrome NON FASTING Performed By: #### A POB, LIPA #### [facility] , #### CMP, A1C WTH eA #### [facility] [address] [place] [address] [place] Glucose [Mass/volume] in Ser um or PlasmaOrdered By: Celio Mullins on 07-01-2023 Glucose [Mass/Vol] 95 mg/dL Normal 70-100 [facility] Comment on above: ADA recommended refe rence rangeRandom Glucose Reference Range is dependent on time and content of last meal. Glucose of more than 200 mg/dL in a nonstressed, ambulatory subject supports the diagnosis of Diabetes Mellitus. Order Comment: Reaso n for Exam Severe obesity (BMI >= 40);PCOS (polycystic ovarian syndrome NON FASTING Result Comment: [place] om Glucose Reference Range is dependent on time and content of last meal. Glucose of more than 200 mg/dL in a nonstressed, ambulatory subject supports the diagnosis of Diabetes Mellitus. ADA recommended reference range Performed By: #### A POB, LIPA #### [facility] , #### CMP, A1C WTH eA #### [facility] [address] [place] [address] [place] Glucose mean value [Mass/vol ume] in [...] CMP, A1C WTH eA #### [facility] [address] [place] [address] [place] Lipoprotein (a)on 07-01-2023 Lipoprotein a [Mass/Vol] 13.0 mg/dL Normal <75.0 [facility] Comment on above: Order Comment: Reaso n for Exam Severe obesity (BMI >= 40);PCOS (polycystic ovarian syndrome Result Comment: Note : Values greater than or equal to 75.0 nmol/L may indicate an independent risk factor for CHD, but must be evaluated with caution when applied to non- populations due to the influence of genetic factors on Lp(a) across ethnicities. Performed at: [facility] [id number] Director Financial Services: Cassius Zhong PhD, Phone: [phone] Performed By: #### A POB, LIPA #### [facility] , #### CMP, A1C WT eA #### [facility] [address] [place] [address] No Panel InformationOrdered By: Celio Mullins on 07-01-2023 Estimated GFR (CKD-EPI) > 60.0 mL/Min [facility] Creatinine Clearance (Chem N/A [facility] Potassium [Moles/volume] in Serum or PlasmaOrdered By: Celio Mullins on 07-01-2023 Potassium [Moles/Vol] 3.8 mmol/L Normal 3.5-5.1 [facility] Comment on above: Order Comment: Reaso n for Exam Severe obesity (BMI >= 40);PCOS (polycystic ovarian syndrome NON FASTING Performed By: #### A POB, LIPA #### [facility] , #### CMP, A1C WTH eA #### [facility] [address] [place] [address] [place] Protein [Mass/volume] in Ser um or PlasmaOrdered By: Celio Mullins on 07-01-2023 Protein [Mass/Vol] 7.8 g/dL Normal 6.4-8.9 [facility] Comment on above: Order Comment: Reaso n for Exam Severe obesity (BMI >= 40);PCOS (polycystic ovarian syndrome NON FASTING Performed By: #### A POB, LIPA #### [facility] , #### CMP, A1C WTH eA #### [address] Serum globulin measurement b y calculation (mass/volume)Ordered By: Celio Mullins on 07-01-2023 Globulin (S) [Mass/Vol] 3.2 g/dL Normal [facility] Comment on above: Order Comment: Reaso n for Exam Severe obesity (BMI >= 40);PCOS (polycystic ovarian syndrome NON FASTING Performed By: #### A POB, LIPA #### [facility] , #### CMP, A1C WTH eA #### [address] Serum or plasma albumin/glob ulin mass ratioOrdered By: Celio Mullins on 07-01-2023 Albumin/Globulin [Mass ratio] 1.4 {ratio} Normal [facility] Comment on above: Order Comment: Reaso n for Exam Severe obesity (BMI >= 40);PCOS (polycystic ovarian syndrome NON FASTING Performed By: #### A POB, LIPA #### [facility] , #### CMP, A1C WTH eA #### [address] Serum or plasma anion gap de terminationOrdered By: Celio Mullins on 07-01-2023 Anion gap [Moles/Vol] 11.5 mmol/L Normal 6.0-15.0 [facility] Comment on above: Order Comment: Reaso n for Exam Severe obesity (BMI >= 40);PCOS (polycystic ovarian syndrome NON FASTING Performed By: #### A POB, LIPA #### [facility] , #### CMP, A1C WTH eA #### [facility] [address] Serum or plasma lipoprotein a measurement [...] on Lp(a) across ethnicities.Performed at: - [facility] [address] [id number] Director: Cassius Zhong PhD, Phone: [phone] Sodium [Moles/volume] in Ser um or PlasmaOrdered By: Celio Mullins on 07-01-2023 Sodium [Moles/Vol] 138 mmol/L Normal 136-145 [facility] Comment on above: Order Comment: Reaso n for Exam Severe obesity (BMI >= 40);PCOS (polycystic ovarian syndrome NON FASTING Performed By: #### A POB, LIPA #### [facility] , #### CMP, A1C [facility] eA #### [address] Urea nitrogen [Mass/volume] in Serum or PlasmaOrdered By: Celio Mullins on 07-01-2023 Urea nitrogen [Mass/Vol] 16 mg/dL Normal 7-25 [facility] Comment on above: Order Comment: Reaso n for Exam Severe obesity (BMI >= 40);PCOS (polycystic ovarian syndrome NON FASTING Performed By: #### A POB, LIPA #### [facility] , #### CMP, A1C [facility] eA #### [place] [address] [place] COVID Quick Testingon 2022 Result Negative [facility] Other SARS-CoV-2 (COVID-19) RNA NA A+probe Ql (Resp)on 02-11-2023 SARS-CoV-2 (COVID-19) RNA SURI+probe Ql (Unsp spec) Negative [facility] Other DHEA-SULFATEon 01-01-2023 DHEA-Sulfate 95.3 ug/dL Normal 84.8-378.0 [facility] Comment on above: Performed By: #### D RIMA #### [facility] [address] [place] [address] Dr. Kaushik Palomares FSHon 01-01-2023 FSH 4.6 mIU/mL Normal [facility] Comment on above: Result Comment: Adul t Female: Follicular phase 3.5 - 12.5 Ovulation phase 4.7 - 21.5 Luteal phase 1.7 - 7.7 Postmenopausal 25.8 - 134.8 Performed By: #### C BC #### [facility] [address] [place] [address] Dr. Kaushik Palomares LUTEINIZING HORMONE (LH)on 0 01-01-2023 LH 3.5 mIU/mL Normal [facility] Comment on above: Result Comment: Adul t Female: Follicular phase 2.4 - 12.6 Ovulation phase 14.0 - 95.6 Luteal phase 1.0 - 11.4 Postmenopausal 7.7 - 58.5 Performed By: #### L BCL #### [facility] [address] [place] [address] Dr. Kaushik Palomares CBC AUTO DIFFon 12-31-2022 BASO # 0.1 103/ul Normal 0.0-0.1 [facility] Comment on above: Performed By: #### C BC #### [facility] [address] [place] [address] Dr. Kaushik Palomares Basophils/100 WBC (Bld) 0.8 % Normal 0.2-2.0 [facility] Comment on above: Performed By: #### C BC #### [facility] [address] [place] [address] Dr. Kaushik Palomares EO # 0.1 103/ul Normal 0.0-0.7 [facility] Comment on above: Performed By: #### C BC #### [facility] [address] [place] [address] Dr. Kaushik Palomares Eosinophils/100 WBC (Bld) 1.7 % Normal 0.9-7.0 [facility] Comment on above: Performed By: #### C BC #### [facility] [address] [place] [address] Dr. Kaushik Palomares Erythrocyte distribution width (RBC) [Ratio] 12.8 % Normal 11.0-15.0 [facility] Comment on above: Performed By: #### C BC #### [facility] [address] [place] [address] Dr. Kaushik Palomares Hematocrit (Bld) [Volume fraction] 33.0 % Critically low 36.0-48.0 [facility] Comment on above: Performed By: #### C BC #### [facility] [address] [place] [address] Dr. Kaushik Palomares Hemoglobin (Bld) [Mass/Vol] 11.0 g/dL Critically low 12.0-16.0 [facility] Comment on above: Performed By: #### C BC #### [facility] [address] [place] [address] Dr. Kaushik Palomares IG # 0.03 10e3/ul Normal 0.00-0.03 [facility] Comment on above: Performed By: #### C BC #### [facility] [address] [place] [address] Dr. Kaushik Palomares IG % 0.5 % Normal 0.0-0.5 [facility] Comment on above: Performed By: #### C BC #### [facility] [address] [place] [address] Dr. Kaushik Palomares LYMPH # 2.4 103/ul Normal 1.2-3.8 [facility] Comment on above: Performed By: #### C BC #### [facility] [address] [place] [address] Dr. Kaushik Palomares Lymphocytes/100 WBC (Bld) 36.6 % Normal 20.5-60.0 [facility] Comment on above: Performed By: #### C BC #### [facility] [address] [place] [address] Dr. Kaushik Palomares MANUAL DIFF REQ NO Normal [facility] Comment on above: Performed By: #### C BC #### [facility] [address] [place] [address] Dr. Kaushik Palomares MCH (RBC) [Entitic mass] 29.0 pg Normal 26.7-34.0 [facility] Comment on above: Performed By: #### C BC #### [facility] [address] [place] [address] Dr. Kaushik Palomares MCHC (RBC) [Mass/Vol] 33.3 g/dL Normal 29.9-35.2 [facility] Comment on above: Performed By: #### C BC #### [facility] [address] [place] [address] Dr. Kaushik Palomares MCV (RBC) [Entitic vol] 87.1 fL Normal 81.0-99.0 [facility] Comment on above: Performed By: #### C BC #### [facility] [address] [place] [address] Dr. Kaushik Palomares MONO # 0.2 103/ul Critically low 0.3-0.8 [facility] Comment on above: Performed By: #### C BC #### [facility] [address] [place] [address] Dr. Kaushik Palomares Monocytes/100 WBC (Bld) 3.6 % Normal 1.7-12.0 [facility] Comment on above: Performed By: #### C BC #### [facility] [address] [place] [address] Dr. Kaushik Palomares NEUT # 3.7 103/ul Normal 1.4-6.5 [facility] Comment on above: Performed By: #### C BC #### [facility] [address] [place] [address] Dr. Kaushik Palomares Neutrophils/100 WBC (Bld) 56.8 % Normal 43.0-75.0 [facility] Comment on above: Performed By: #### C BC #### [facility] [address] [place] [address] Dr. Kaushik Palomares Platelet mean volume (Bld) [Entitic vol] 9.8 fL Normal 9.5-13.5 [facility] Comment on above: Performed By: #### C BC #### [facility] [address] [place] [address] Dr. Kaushik Palomares PLT 234 103/ul Normal 150-[address] [facility] Comment on above: Performed By: #### C BC #### [facility] [address] [place] [address] [address] Kaushik Palomares RBC 3.79 106/ul Critically low 4.20-5.40 [facility] Comment on above: Performed By: #### C BC #### [facility] [address] [place] [address] Dr. Kaushik Palomares WBC 6.5 103/ul Normal 4.0-11.0 [facility] Comment on above: Performed By: #### C BC #### [facility] [address] [place] [address] Dr. Kaushik Palomares FREE T4on 12-31-2022 Free T4 [Mass/Vol] 0.79 ng/dL Normal 0.76-1.46 [facility] Comment on above: Performed By: #### F T4 #### [facility] [address] [place] [address] Dr. Kaushik Palomares GLYCOHEMOGLOBIN A1Con 2022 ADA RECOMMENDATION SEE BELOW Normal [facility] Comment on above: Result Comment: ADA RECOMMENDED LIMIT 4.0 - 6.0 ADA THERAPEUTIC TARGET < 7.0 ACTION SUGGESTED > 7.0 Performed By: #### A 1C #### [facility] [address] [place] [address] Dr. Kaushik Palomares Glucose [Mass/Vol] 111 mg/dL Normal [facility] Comment on above: Performed By: #### A 1C #### [facility] [address] [place] [address] Dr. Kaushik Palomares HbA1c (Bld) [Mass fraction] 5.5 % Normal 4.5-6.2 [facility] Comment on above: Performed By: #### A 1C #### [facility] [address] [place] [address] Dr. Kaushik Palomares TSHon 12-31-2022 TSH 1.114 uIU/mL Normal 0.358-3.740 [facility] Comment on above: Performed By: #### C #### [facility] [address] [place] [address] [address] Kaushik Palomares US PELVIS AND TRANSVAGon [...] SUGEY MACDONALD Date: 2022-11-26 15:[address] [facility] XR SACRUM_COCCYXon 3 XR SACRUM_COCCYX EXAMINATION: [...] authenticated by: SUGEY MACDONALD Date: 2022-11-08 10:01 [facility] PAP ACOG PANEL 2: 30 to 65on 11-05-2022 . . Normal [facility] Comment on above: Result Comment: Perf ormed at: WB Performed By: #### C BC #### [facility] [address] [place] [address] [address] Kaushik Palomares Age Gdln ACOG Testing 30-65 Normal [facility] Comment on above: Performed By: #### C BC #### [facility] [address] [place] [address] [address] Kaushik Palomares DIAGNOSIS: Comment [facility] Comment on above: Result Comment: NEGA TIVE FOR INTRAEPITHELIAL LESION OR MALIGNANCY. Performed at: WB Performed By: #### C BC #### [facility] [address] [address] [address] Kaushik Palomares HPV Aptima Negative Normal Negative [facility] Comment on above: Result Comment: This nucleic acid amplification test detects fourteen high-risk HPV types (16,18,31,33,35,39,45,51,52,56,58,59,66,68) without differentiation. Performed at: =G Performed By: #### C BC #### [facility] [address] [place] [address] [address] Kaushik Palomares HPV Genotype Reflex Comment Normal [facility] Comment on above: Result Comment: Crit eria not met, HPV Genotype not performed. Performed at: WB Performed By: #### C BC #### [facility] [address] [address] [address] Kaushik Palomares Methodology: Comment Normal [facility] Comment on above: Result Comment: This liquid based ThinPrep(R) pap test was screened with the use of an image guided system. Performed at: WB Performed By: #### C BC #### [facility] [address] [place] [address] Dr. Kaushik Palomares Note: Comment Normal [facility] Comment on [...] WB Performed By: #### C BC #### [facility] [address] [place] [address] Dr. Kaushik Palomares Performed by: Comment Normal [facility] Comment on above: Result Comment: Robi Graham, Utility Repairer (ASCP) Performed at: WB Performed By: #### C BC #### [facility] [address] [place] [address] Dr. Kaushik Palomares Specimen adequacy: Comment Normal [facility] Comment on above: Result Comment: Sati sfactory for evaluation. Endocervical and/or squamous metaplastic cells (endocervical component) are present. Performed at: WB Performed By: #### C BC #### [facility] [address] [place] [address] Dr. Kaushik Palomares COVID/FLU RT-PCRon 2 SARS-CoV-2 (COVID-19) RNA SURI+probe Ql (Unsp spec) Negative [facility] Other COVID/FLU RT-PCR Negative [employer] Other HCG-BETA SUBUNIT QUANTon hCG,Beta Subunit,Qnt,Serum <1 Normal [facility] Comment on above: Result Comment: Fema le (Non-) 0 - 5 (Postmenopausal) 0 - 8 . Female () Weeks of Gestation 3 6 - 71 4 10 - 750 5 217 - 7138 6 158 - 71964 7 [phone] -[phone] 8 10740 -966162 9 71531 -068438 10 58874 -120580 12 60860 -622188 14 29820 - 12384 15 08668 - 37788 16 3575 - 70987 17 1256 - 96693 18 8127 - 06189 Rg ECLIA methodology Performed By: #### H CGSUB #### [facility] [address] [place] [address] Dr. Kaushik Palomares T4 LABCORPon 01-22-2022 T4 [Mass/Vol] 7.8 ug/dL Normal 4.5-12.0 [facility] Comment on above: Performed By: #### T 4LC #### [facility] [address] [place] [address] Dr. Kaushik Palomares CBC AUTO DIFFon 01-21-2022 BASO # 0.1 103/ul Normal 0.0-0.1 [facility] Comment on above: Performed By: #### C BC #### [facility] [address] [place] [address] Dr. Kaushik Palomares Basophils/100 WBC (Bld) 0.6 % Normal 0.2-2.0 [facility] Comment on above: Performed By: #### C BC #### [facility] [address] [place] [address] Dr. Kaushik Palomares EO # 0.1 103/ul Normal 0.0-0.7 [facility] Comment on above: Performed By: #### C BC #### [facility] [address] [place] [address] Dr. Kaushik Palomares Eosinophils/100 WBC (Bld) 1.2 % Normal 0.9-7.0 [facility] Comment on above: Performed By: #### C BC #### [facility] [address] [place] [address] Dr. Kaushik Palomares Erythrocyte distribution width (RBC) [Ratio] 13.3 % Normal 11.0-15.0 [facility] Comment on above: Performed By: #### C BC #### [facility] [address] [place] [address] Dr. Kaushik Palomares Hematocrit (Bld) [Volume fraction] 40.0 % Normal 36.0-48.0 [facility] Comment on above: Performed By: #### C BC #### [facility] [address] [place] [address] Dr. Kaushik Palomares Hemoglobin (Bld) [Mass/Vol] 12.7 g/dL Normal 12.0-16.0 [facility] Comment on above: Performed By: #### C BC #### [facility] [address] [place] [address] Dr. Kaushik Palomares IG # 0.02 10e3/ul Normal 0.00-0.03 [facility] Comment on above: Performed By: #### C BC #### [facility] [address] [place] [address] Dr. Kaushik Palomares IG % 0.2 % Normal 0.0-0.5 [facility] Comment on above: Performed By: #### C BC #### [facility] [address] [place] [address] Dr. Kaushik Palomares LYMPH # 3.0 103/ul Normal 1.2-3.8 [facility] Comment on above: Performed By: #### C BC #### [facility] [address] [place] [address] Dr. Kaushik Palomares Lymphocytes/100 WBC (Bld) 32.9 % Normal 20.5-60.0 [facility] Comment on above: Performed By: #### C BC #### [facility] [address] [place] [address] Dr. Kaushik Palomares MANUAL DIFF REQ NO Normal [facility] Comment on above: Performed By: #### C BC #### [facility] [address] [place] [address] Dr. Kaushik Palomares MCH (RBC) [Entitic mass] 28.5 pg Normal 26.7-34.0 [facility] Comment on above: Performed By: #### C BC #### [facility] [address] [place] [address] Dr. Kaushik Palmoares MCHC (RBC) [Mass/Vol] 31.8 g/dL Normal 29.9-35.2 [facility] Comment on above: Performed By: #### C BC #### [facility] [address] [place] [address] Dr. Kaushik Palomares MCV (RBC) [Entitic vol] 89.7 fL Normal 81.0-99.0 [facility] Comment on above: Performed By: #### C BC #### [facility] [address] [place] [address] Dr. Kaushik Palomares MONO # 0.5 103/ul Normal 0.3-0.8 [facility] Comment on above: Performed By: #### C BC #### [facility] [address] [place] [address] Dr. Kaushik Palomares Monocytes/100 WBC (Bld) 5.1 % Normal 1.7-12.0 [facility] Comment on above: Performed By: #### C BC #### [facility] [address] [place] [address] Dr. Kaushik Palomares NEUT # 5.4 103/ul Normal 1.4-6.5 [facility] Comment on above: Performed By: #### C BC #### [facility] [address] [place] [address] Dr. Kaushik Palomares Neutrophils/100 WBC (Bld) 60.0 % Normal 43.0-75.0 [facility] Comment on above: Performed By: #### C BC #### [facility] [address] [place] [address] Dr. Kaushik Palomares Platelet mean volume (Bld) [Entitic vol] 9.3 fL Critically low 9.5-13.5 [facility] Comment on above: Performed By: #### C BC #### [facility] [address] [place] [address] Dr. Kaushik Palomares PLT 221 103/ul Normal 150-450 [facility] Comment on above: Performed By: #### C BC #### [facility] [address] [place] [address] Dr. Kaushik Palomares RBC 4.46 106/ul Normal 4.20-5.40 [facility] Comment on above: Performed By: #### C BC #### [facility] [address] [place] [address] Dr. Kaushik Palomares WBC 9.0 103/ul Normal 4.0-11.0 [facility] Comment on above: Performed By: #### C BC #### [facility] [address] [place] [address] Dr. Kaushik Palomares GLYCOHEMOGLOBIN A1Con 2021 ADA RECOMMENDATION SEE BELOW Normal [facility] Comment on above: Result Comment: ADA RECOMMENDED LIMIT 4.0 - 6.0 ADA THERAPEUTIC TARGET < 7.0 ACTION SUGGESTED > 7.0 Performed By: #### C BC #### [facility] [address] [address] [address] Kaushik Palomares Glucose [Mass/Vol] 94 mg/dL Normal [facility] Comment on above: Performed By: #### C BC #### [facility] [address] [address] [address] Kaushik Palomares HbA1c (Bld) [Mass fraction] 4.9 % Normal 4.5-6.2 [facility] Comment on above: Performed By: #### C BC #### [facility] [address] [address] [address] Kaushik Palomares LIPID PROFILEon 01-21-2022 CHOL-HDL RATIO NORM SEE BELOW Normal [facility] Comment on above: Result Comment: 3.3 - 4.4 LOW RISK 4.4 - 7.1 AVERAGE RISK 7.1 - 11.0 MODERATE RISK >11.0 HIGH RISK Performed By: #### L IPID, CMP, TSH #### [facility] [address] [address] [address] Kaushik Palomares Cholesterol [Mass/Vol] 168 mg/dL Normal <=200 [facility] Comment on above: Performed By: #### L IPID, CMP, TSH #### [facility] [address] [address] [address] Kaushik Palomares Cholesterol in HDL [Mass/Vol] 41 mg/dL Normal 40-60 [facility] Comment on above: Performed By: #### L IPID, CMP, TSH #### [facility] [address] [address] [address] Kaushik Palomares Cholesterol in LDL [Mass/Vol] 90.2 mg/dL Normal [facility] Comment on above: Performed By: #### L IPID, CMP, TSH #### [facility] [address] [address] [address] Kaushik Palomraes Cholesterol.total/Mali sterol in HDL [Mass ratio] 4.1 {ratio} Normal [facility] Comment on above: Performed By: #### L IPID, CMP, TSH #### [facility] [address] [address] [address] Kaushik Palomares HDL NORMAL > or = 60 mg/dl - LO W CARDIOVASCULAR RISK <40 mg/dl - HIGH CARDIOVASCULAR RISK Normal [facility] Comment on above: Performed By: #### L IPID, CMP, TSH #### [facility] [address] [address] [address] Kaushik Palomares LDL CALC NORMAL SEE BELOW Normal [facility] Comment on above: Result Comment: <100 mg/dl OPTIMAL 100 - 129 mg/dl NEAR OR ABOVE OPTIMAL 130 - 159 mg/dl BORDERLINE HIGH 160 - 189 mg/dl HIGH >190 mg/dl VERY HIGH Performed By: #### L IPID, CMP, TSH #### [facility] [address] [address] [address] Kaushik Palomares Triglyceride [Mass/Vol] 184 mg/dL Critically high <=150 [facility] Comment on above: Performed By: #### L IPID, CMP, TSH #### [facility] [address] [address] [address] Kaushik Palomares VLDL CALC 36.8 mg/dL Normal [facility] Comment on above: Performed By: #### L IPID, CMP, TSH #### [facility] [address] [address] [address] Kaushik Palomares MICROALBUMIN, RAND URon 06-0 mALB 2.0 mg/L Normal <=30.0 [facility] Comment on above: Performed By: #### C BC #### [facility] [address] [address] [address] Kaushik Palomares PROF 14(COMP METB)on 022 Albumin [Mass/Vol] 3.7 g/dL Normal 3.4-5.0 [facility] Comment on above: Performed By: #### L IPID, CMP, TSH #### [facility] [address] [address] [address] Kaushik Palomares Albumin/Globulin [Mass ratio] 0.9 {ratio} Normal [facility] Comment on above: Performed By: #### L IPID, CMP, TSH #### [facility] [address] [address] [address] Kaushik Palomares ALP [Catalytic activity/Vol] 53 U/L Normal 46-116 [facility] Comment on above: Performed By: #### L IPID, CMP, TSH #### [facility] [address] [address] [address] Kaushik Palomares ALT [Catalytic activity/Vol] 44 U/L Normal 14-59 [facility] Comment on above: Performed By: #### L IPID, CMP, TSH #### [facility] [address] [address] [address] Kaushik Palomares Anion gap [Moles/Vol] 6.8 mmol/L Normal [facility] Comment on above: Performed By: #### L IPID, CMP, TSH #### [facility] [address] [place] [address] Dr. Kaushik Palomares AST [Catalytic activity/Vol] 22 U/L Normal 15-37 [facility] Comment on above: Performed By: #### L IPID, CMP, TSH #### [facility] [address] [place] [address] Dr. Kaushik Palomares Bilirubin [Mass/Vol] 0.3 mg/dL Normal 0.2-1.0 [facility] Comment on above: Performed By: #### L IPID, CMP, TSH #### [facility] [address] [place] [address] Dr. Kaushik Palomares Calcium [Mass/Vol] 9.2 mg/dL Normal 8.5-10.1 [facility] Comment on above: Performed By: #### L IPID, CMP, TSH #### [facility] [address] [place] [address] Dr. Kaushik Palomares Chloride [Moles/Vol] 102 mmol/L Normal 98-107 [facility] Comment on above: Performed By: #### L IPID, CMP, TSH #### [facility] [address] [place] [address] Dr. Kaushik Palomares CO2 [Moles/Vol] 31.4 mmol/L Normal 21.0-32.0 [facility] Comment on above: Performed By: #### L IPID, CMP, TSH #### [facility] [address] [address] [address] Kaushik Palomares Creatinine [Mass/Vol] 0.71 mg/dL Normal 0.55-1.02 [facility] Comment on above: Performed By: #### L IPID, CMP, TSH #### [facility] [address] [address] [address] Kaushik Palomares EGFR-AF SCOTTISH >60 Normal >=60 [facility] Comment on above: Performed By: #### L IPID, CMP, TSH #### [facility] [address] [address] [address] Kaushik Palomares EGFR-NON AF SCOTTISH >60 Normal >=60 [facility] Comment on above: Performed By: #### L IPID, CMP, TSH #### [facility] [address] [address] [address] Kaushik Palomares Globulin (S) [Mass/Vol] 4.2 g/dL Normal [facility] Comment on above: Performed By: #### L IPID, CMP, TSH #### [facility] [address] [address] [address] Kaushik Palomares Glucose [Mass/Vol] 93 mg/dL Normal 74-106 [facility] Comment on above: Performed By: #### L IPID, CMP, TSH #### [facility] [address] [address] [address] Kaushik Palomares Potassium [Moles/Vol] 4.2 mmol/L Normal 3.5-5.1 [facility] Comment on above: Performed By: #### L IPID, CMP, TSH #### [facility] [address] [address] [address] Kaushik Palomares Protein [Mass/Vol] 7.9 g/dL Normal 6.4-8.2 [facility] Comment on above: Performed By: #### L IPID, CMP, TSH #### [facility] [address] [address] [address] Kaushik Palomares Sodium [Moles/Vol] 136 mmol/L Normal 136-145 [facility] Comment on above: Performed By: #### L IPID, CMP, TSH #### [facility] [address] [address] [address] Kaushik Palomares Urea nitrogen [Mass/Vol] 11.0 mg/dL Normal 7.0-18.0 [facility] Comment on above: Performed By: #### L IPID, CMP, TSH #### [facility] [address] [address] [address] Kaushik Palomares Urea nitrogen/Creatinine [Mass ratio] 15.5 mg/mg Normal [facility] Comment on above: Performed By: #### L IPID, CMP, TSH #### [facility] [address] [place] [address] Dr. Kaushik Palomares TSHon 01-21-2022 TSH 1.298 uIU/mL Normal 0.358-3.740 [facility] Comment on above: Performed By: #### C BC #### [facility] [address] [place] [address] Dr. Kaushik Palomares TSH RANGE SEE BELOW Normal [facility] Comment on above: Result Comment: <0.3 4 UIU/ml HYPERTHYROID 0.34-5.60 UIU/ml EUTHYROID >5.60 UIU/ml HYPOTHYROID Performed By: #### C BC #### [facility] [address] [place] [address] Dr. Kaushik Palomares COVID Quick Testingon 2020 Result Negative [facility] Other Quick Strepon 06-17-2021 S. pyogenes Org specific cx Ql (Throat) Negative [employer] Other Quick Strep [facility] Other Urinalysis - AUTOMATEDon Appearance (U) cloudy [facility] Other Bilirubin Ql (U) Negative [employer] Other Color (U) yellow [facility] Other Glucose Ql (U) Negative [facility] Other Hemoglobin Ql (U) large [place] [facility] [employer] Other Ketones Ql (U) Negative [facility] Other Leukocyte esterase Test strip Ql (U) trace [facility] Other Nitrite Ql (U) Positive [facility] Other pH (U) 5.5 [pH] [place] [employer] Other Protein Ql (U) 100 [facility] Other Specific gravity (U) [Rel density] 1.025 [place] [employer] Other Urobilinogen (U) [Mass/Vol] 0.2 mg/dL [facility] [employer] Other Urinalysis - AUTOMATED No rt [employer] Other Urine Cultureon 05-31-2021 Urine Culture >100,000 [place] [employer] Other Urine Culture <16 [facility] Other Urine Culture >16 [facility] Other Urine Culture <4 [place] [employer] Other Urine Culture 8 [place] [employer] Other Urine Culture <2 [facility] Other Urine Culture <1 [facility] Other Urine Culture >2 [facility] Other Urine Culture <0.5 [place] [facility] [employer] Other Urine Culture >8 [facility] Other Urine Culture >4 [facility] Other Urine Culture <32 [facility] Other Urine Culture >2/38 [facility] [employer] Other Vital Signs Date Time Vital Sign Value 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 04-21-2024 14:31-0400 Body height 162.56 cm HEALTH TECHNICIANJosé Miguel Marc Work Phone: [facility] 04-21-2024 14:31-0400 Body mass index (BMI) [Ratio] 55 kg/m2 HEALTH TECHNICIANJosé Miguel Marc Work Phone: [facility] 04-21-2024 14:31-0400 Body weight 145.6 kg HEALTH TECHNICIANJosé Miguel Keaner Work Phone: [facility] 04-21-2024 14:31-0400 Diastolic blood pressure 88 mm[Hg] HEALTH TECHNICIANJosé Miguel Keaner Work Phone: [facility] 04-21-2024 14:31-0400 Heart rate 111 /min HEALTH TECHNICIANJosé Miguel Marc Work Phone: [facility] 04-21-2024 14:31-0400 SaO2% (BldA) [Mass fraction] 97 % HEALTH TECHNICIANJosé Miguel Marc Work Phone: [facility] 04-21-2024 14:31-0400 Systolic blood pressure 136 mm[Hg] ROISTA Marc Work Phone: [facility] 11-26-2023 08:40-0400 Body height 162.56 cm HEALTH TECHNICIANJosé Miguel Parksacher Work Phone: [facility] 11-26-2023 08:40-0400 Body mass index (BMI) [Ratio] 52.9 kg/m2 ROSITA Parksacher Work Phone: [facility] 11-26-2023 08:40-0400 Body weight 139.79 kg HEALTH TECHNICIANJosé Miguel Keaner Work Phone: [facility] 11-26-2023 08:40-0400 Diastolic blood pressure 79 mm[Hg] HEALTH TECHNICIANJosé Miguel Barclayrbacher Work Phone: [facility] 11-26-2023 08:40-0400 Heart rate 97 /min HEALTH TECHNICIANJosé Miguel ThaoManisha Denyrbacher Work Phone: [facility] 11-26-2023 08:40-0400 SaO2% (BldA) [Mass fraction] 99 % HEALTH TECHNICIANJosé Miguel ThaoManisha Denyrbacher Work Phone: [facility] 11-26-2023 08:40-0400 Systolic blood pressure 131 mm[Hg] HEALTH TECHNICIANJosé Miguel ThaoManisha Charlyacher Work Phone: [facility] 11-03-2023 14:06-0400 Body height 162.56 cm HEALTH TECHNICIANJosé Miguel Parksacher Work Phone: [facility] 11-03-2023 14:06-0400 Body mass index (BMI) [Ratio] 53.1 kg/m2 HEALTH TECHNICIANJosé Miguel ThaoManisha Charlyacher Work Phone: [facility] 11-03-2023 14:06-0400 Body weight 140.61 kg HEALTH TECHNICIAN Manisha Denyrbacher Work Phone: [facility] 11-03-2023 14:06-0400 Diastolic blood pressure 78 mm[Hg] HEALTH TECHNICIANJosé Miguel Barclayrbacher Work Phone: [facility] 11-03-2023 14:06-0400 Heart rate 105 /min HEALTH TECHNICIANJosé Miguel ColladoManisha Denyrbacher Work Phone: [facility] 11-03-2023 14:06-0400 SaO2% (BldA) [Mass fraction] 98 % HEALTH TECHNICIANJosé Miguel ColladoManisha Denyrbacher Work Phone: [facility] 11-03-2023 14:06-0400 Systolic blood pressure 118 mm[Hg] HEALTH TECHNICIANJosé Miguel Barclayrbacher Work Phone: [facility] 10-08-2023 10:50-0500 Body height 162.56 cm HEALTH TECHNICIANJosé Miguel Parksacher Work Phone: [facility] 10-08-2023 10:50-0500 Body weight 139.25 kg HEALTH TECHNICIANJosé Miguel Barclayrbacher Work Phone: [facility] 10-01-2023 09:20-0500 Body height 162.56 cm HEALTH TECHNICIANJosé Miguel Barclayrbacher Work Phone: [facility] 10-01-2023 09:20-0500 Body mass index (BMI) [Ratio] 53.6 kg/m2 HEALTH TECHNICIANJosé Miguel Parksacher Work Phone: [facility] 10-01-2023 09:20-0500 Body weight 141.69 kg HEALTH TECHNICIANJosé Miguel Barclayrbacher Work Phone: [facility] 10-01-2023 09:20-0500 Diastolic blood pressure 75 mm[Hg] HEALTH TECHNICIANJosé Miguel Barclayrbacher Work Phone: [facility] 10-01-2023 09:20-0500 Heart rate 85 /min HEALTH TECHNICIANJosé Miguel Parksacher Work Phone: [facility] 10-01-2023 09:20-0500 Respiratory rate 18 /min HEALTH TECHNICIANJosé Miguel Parksacher Work Phone: [facility] 10-01-2023 09:20-0500 SaO2% (BldA) [Mass fraction] 99 % HEALTH TECHNICIANJosé Miguel Barclayrbacher Work Phone: [facility] 10-01-2023 09:20-0500 Systolic blood pressure 123 mm[Hg] HEALTH TECHNICIANJosé Miguel Barclayrbacher Work Phone: [facility] 09-03-2023 08:00-0500 Body height 162.56 cm HEALTH TECHNICIANJosé Miguel Parksacher Work Phone: [facility] 09-03-2023 08:00-0500 Body weight 138.79 kg HEALTH TECHNICIAN Manisha Marc Work Phone: [facility] 09-03-2023 08:00-0500 Diastolic blood pressure 78 mm[Hg] HEALTH TECHNICIAN Manisha Charlyacher Work Phone: [facility] 09-03-2023 08:00-0500 Systolic blood pressure 118 mm[Hg] HEALTH TECHNICIAN Manisha Parksacher Work Phone: [facility] 08-19-2023 09:45-0500 Body height 162.56 cm Nely Cruz Other [facility] 08-13-2023 14:00-0500 Body height 162.56 cm Manisha Marc Other [facility] 08-13-2023 14:00-0500 Body mass index (BMI) [Ratio] 52.35 kg/m2 Manisha Marc Other [facility] [employer] Other 08-13-2023 14:00-0500 Body weight 138.35 kg Manisha Marc Other [facility] Other 08-13-2023 14:00-0500 Body weight 138.34 kg ROSITA Marc Work Phone: [facility] 08-13-2023 14:00-0500 Diastolic blood pressure 80 mm[Hg] Manisha Marc Other [facility] 08-13-2023 14:00-0500 SaO2% (BldA) [Mass fraction] 98 % Manisha Marc Other [facility] [employer] Other 08-13-2023 14:00-0500 Systolic blood pressure 114 mm[Hg] Manisha Marc Other [facility] 07-15-2023 07:45-0500 Body height 162.56 cm Celio Mullins Other [facility] 07-15-2023 07:45-0500 Body mass index (BMI) [Ratio] 52.98 kg/m2 Celio Mullins Other [facility] Other 07-15-2023 07:45-0500 Body weight 140.03 kg Celio Mullins Other [facility] Other 07-15-2023 07:45-0500 Body weight 140.02 kg ROSITA Marc Work Phone: [facility] 07-15-2023 07:45-0500 Diastolic blood pressure 66 mm[Hg] Celio Mullins Other [facility] 07-15-2023 07:45-0500 Respiratory rate 18 /min Celio Mullins Other [facility] Other 07-15-2023 07:45-0500 SaO2% (BldA) [Mass fraction] 98 % Celio Mullins Other [facility] Other 07-15-2023 07:45-0500 Systolic blood pressure 112 mm[Hg] Celio Mullins Other [facility] 07-07-2023 11:15-0500 Body height 162.56 cm Michelle Ernandez Other [facility] 07-07-2023 11:15-0500 Body mass index (BMI) [Ratio] 52.69 kg/m2 Michelle Ernandez Other [facility] Other 07-07-2023 11:15-0500 Body temperature 98 [degF] Michelle Ernandez Other [facility] Other 07-07-2023 11:15-0500 Body weight 139.26 kg Michelle Oma Other [facility] Other 07-07-2023 11:15-0500 Body weight 139.25 kg ROSITA Manisha Marc Work Phone: [facility] 07-07-2023 11:15-0500 Respiratory rate 20 /min Michelle Oma Other [facility] Other 07-07-2023 11:15-0500 SaO2% (BldA) [Mass fraction] 98 % Michelle Oma Other [facility] Other 06-29-2023 10:20-0500 Body height 162.56 cm Michelle Oma Other [facility] Other 06-29-2023 10:20-0500 Body mass index (BMI) [Ratio] 53.03 kg/m2 Michelle Oma Other [facility] Other 06-29-2023 10:20-0500 Body temperature 99.7 [degF] Michelle Oma Other [facility] Other 06-29-2023 10:20-0500 Body weight 140.16 kg Michelle Oma Other [facility] Other 06-29-2023 10:20-0500 Respiratory rate 19 /min Michelle Oma Other [facility] Other 06-29-2023 10:20-0500 SaO2% (BldA) [Mass fraction] 98 % Michelle Oma Other [facility] Other 06-11-2023 15:30-0400 Body height 162.56 cm Manisha Barclayfani Other [facility] Other 06-11-2023 15:30-0400 Body mass index (BMI) [Ratio] 53.79 kg/m2 Manisha Tari Other [facility] Other 06-11-2023 15:30-0400 Body weight 142.16 kg Manisha Charlymarycarmentad Other [facility] Other 06-11-2023 15:30-0400 Diastolic blood pressure 62 mm[Hg] Manisha Tari Other [facility] Other 06-11-2023 15:30-0400 SaO2% (BldA) [Mass fraction] 99 % Manisha Tari Other [facility] Other 06-11-2023 15:30-0400 Systolic blood pressure 126 mm[Hg] Manisha Tari Other [facility] Other 05-06-2023 13:40-0400 Body height 162.56 cm Casandra Hassan Other [facility] Other 05-06-2023 13:40-0400 Body mass index (BMI) [Ratio] 53.65 kg/m2 Casandra Hassan Other [facility] Other 05-06-2023 13:40-0400 Body temperature 98.4 [degF] Casandra Hassan Other [facility] Other 05-06-2023 13:40-0400 Body weight 141.8 kg Casandra Sonya Other [facility] Other 05-06-2023 13:40-0400 Diastolic blood pressure 81 mm[Hg] Casandra Tesfayeley Other [facility] Other 05-06-2023 13:40-0400 Respiratory rate 18 /min Casandra Tesfayeley Other [facility] Other 05-06-2023 13:40-0400 SaO2% (BldA) [Mass fraction] 95 % Casandra Tesfayeley Other [facility] Other 05-06-2023 13:40-0400 Systolic blood pressure 134 mm[Hg] Casandramila Hassan Other [facility] Other 04-30-2023 08:30-0400 Body height 162.56 cm Manisha Marc Other [facility] Other 04-30-2023 08:30-0400 Body mass index (BMI) [Ratio] 53.86 kg/m2 Manisha Marc Other [facility] Other 04-30-2023 08:30-0400 Body weight 142.34 kg Manisha Marc Other [facility] Other 04-30-2023 08:30-0400 Diastolic blood pressure 82 mm[Hg] Manisha Marc Other [facility] Other 04-30-2023 08:30-0400 SaO2% (BldA) [Mass fraction] 100 % Manisha Marc Other [facility] Other 04-30-2023 08:30-0400 Systolic blood pressure 120 mm[Hg] Manisha Tari Other [facility] Other 04-29-2023 07:00-0400 Body height 162.56 cm Nely [employer] Other [facility] Other 04-29-2023 07:00-0400 Body mass index (BMI) [Ratio] 54.41 kg/m2 Nely [employer] Other [facility] Other 04-29-2023 07:00-0400 Body weight 143.79 kg Nely Fitt Other [facility] Other 03-25-2023 13:45-0400 Body height 162.56 cm [employer] Other [facility] Other 03-25-2023 13:45-0400 Body mass index (BMI) [Ratio] 55.45 kg/m2 [employer] Other [facility] Other 03-25-2023 13:45-0400 Body weight 146.56 kg [employer] Other [facility] Other 03-25-2023 13:45-0400 Diastolic blood pressure 57 mm[Hg] [employer] Other [facility] Other 03-25-2023 13:45-0400 Respiratory rate 18 /min [employer] Other [facility] Other 03-25-2023 13:45-0400 SaO2% (BldA) [Mass fraction] 97 % [employer] Other [facility] Other 03-25-2023 13:45-0400 Systolic blood pressure 106 mm[Hg] Celio Mullins Other [facility] Other 02-11-2023 12:15-0400 Body height 163.83 cm Casandra Hassan Other [facility] Other 02-11-2023 12:15-0400 Body mass index (BMI) [Ratio] 54.88 kg/m2 Casandra Hassan Other [facility] Other 02-11-2023 12:15-0400 Body temperature 98 [degF] Casandra Hassan Other [facility] Other 02-11-2023 12:15-0400 Body weight 147.33 kg Casandra Hassan Other [facility] Other 02-11-2023 12:15-0400 Diastolic blood pressure 85 mm[Hg] Casandra Hassan Other [facility] Other 02-11-2023 12:15-0400 Respiratory rate 18 /min Casandra Hassan Other [facility] Other 02-11-2023 12:15-0400 SaO2% (BldA) [Mass fraction] 98 % Casandra Hassan Other [facility] Other 02-11-2023 12:15-0400 Systolic blood pressure 128 mm[Hg] Casandra Hassan Other [facility] Other 07-13-2022 11:15-0500 Body height 163.83 cm Michelle Ernandez Other [facility] Other 07-13-2022 11:15-0500 Body mass index (BMI) [Ratio] 51.54 kg/m2 Michelle Oma Other [facility] Other 07-13-2022 11:15-0500 Body temperature 96.6 [degF] Michelle Oma Other [facility] Other 07-13-2022 11:15-0500 Body weight 138.35 kg Michelle Oma Other [facility] Other 07-13-2022 11:15-0500 Respiratory rate 18 /min Michelle Oma Other [facility] Other 07-13-2022 11:15-0500 SaO2% (BldA) [Mass fraction] 96 % Michelle Oma Other [facility] Other 07-06-2021 13:00-0500 Body height 163.83 cm Michelle Oma Other [facility] Other 07-06-2021 13:00-0500 Body mass index (BMI) [Ratio] 49 kg/m2 Michelle Oma Other [facility] Other 07-06-2021 13:00-0500 Body temperature 97.5 [degF] Michelle Oma Other [facility] Other 07-06-2021 13:00-0500 Body weight 131.54 kg Michelle Oma Other [facility] Other 07-06-2021 13:00-0500 SaO2% (BldA) [Mass fraction] 96 % Michelle Haynesmond Other [facility] Other 06-17-2021 11:00-0400 Body height 163.83 cm Michelle Oma Other [facility] Other 06-17-2021 11:00-0400 Body mass index (BMI) [Ratio] 49.68 kg/m2 Michelle Oma Other [facility] Other 06-17-2021 11:00-0400 Body temperature 98.3 [degF] Michelle Oma Other [facility] Other 06-17-2021 11:00-0400 Body weight 133.36 kg Michelle Oma Other [facility] Other 06-17-2021 11:00-0400 Respiratory rate 18 /min Michelle Oma Other [facility] Other 06-17-2021 11:00-0400 SaO2% (BldA) [Mass fraction] 96 % Michelle Oma Other [facility] Other 05-31-2021 13:50-0400 Body height 163.83 cm Michelle Oma Other [facility] Other 05-31-2021 13:50-0400 Body mass index (BMI) [Ratio] 50.36 kg/m2 Michelle Oma Other [facility] Other 05-31-2021 13:50-0400 Body temperature 97.8 [degF] Michelle Oma Other [facility] Other 05-31-2021 13:50-0400 Body weight 135.17 kg Michelle Ernandez Other [facility] [employer] Other 05-31-2021 13:50-0400 Diastolic blood pressure 90 mm[Hg] Michelle Ernandez Other [facility] Other 05-31-2021 13:50-0400 Respiratory rate 18 /min Michelle Ernandez Other [facility] Other 05-31-2021 13:50-0400 SaO2% (BldA) [Mass fraction] 98 % Michelle Ernandez Other [facility] [employer] Other 05-31-2021 13:50-0400 Systolic blood pressure 150 mm[Hg] Michelle Ernandez Other [place] [employer] Other Encounters Encounter Date Encounter Type Care Provider Facility Start: 05-13-2024 ambulatory Edward Richey acility:[facility] Start: 04-21-2024 End: 04-21-2024 ambulatory ROSITA Marc Work Phone: [facility] Work Phone: Start: 04-21-2024 End: 04-21-2024 Patient encounter procedure ROSITA Marc Work Phone: [facility] Work Phone: Start: 04-12-2024 Non-patient / Non-visit ROSITA Marc Work Phone: [facility] Physician [facility] Professional [employer] Work Phone: Start: 04-03-2024 Registered Recurring ROSITA Marc Work Phone: [facility] Start: 03-16-2024 End: 03-16-2024 ambulatory MELA ANDERSON Not Available Start: 01-19-2024 End: 01-19-2024 ambulatory [facility] [facility] Start: 01-01-2024 Registered Recurring ROSITA Marc Work Phone: [facility] Start: 11-26-2023 End: 11-26-2023 ambulatory HEALTH TECHNICIANJosé Miguel Marc Work Phone: [facility] Work Phone: Start: 11-26-2023 End: 11-26-2023 Patient encounter procedure ROSITA Marc Work Phone: [facility] Physician [facility] Work Phone: Start: 11-03-2023 End: 11-03-2023 ambulatory ROSITA Marc Work Phone: [facility] Work Phone: Start: 11-03-2023 End: 11-03-2023 Patient encounter procedure HEALTH TECHNICIANJosé Miguel Marc Work Phone: [facility] Physician [facility] Work Phone: Start: 11-03-2023 End: 11-03-2023 ambulatory TOBIAS WATTERSZIO Not Available Start: 10-30-2023 Non-patient / Non-visit ROSITA Marc Work Phone: [facility] Physician [facility] Professional [employer] Work Phone: Start: 10-08-2023 End: 10-08-2023 Patient encounter procedure ROSITA Marc Work Phone: [facility] [place] Work Phone: Start: 10-08-2023 End: 10-08-2023 ambulatory ROSITA Marc Work Phone: [facility] Work Phone: Start: 10-06-2023 Non-patient / Non-visit ROSITA Marc Work Phone: [facility] Work Phone: Start: 10-06-2023 End: 10-06-2023 ambulatory [facility] Start: 10-01-2023 End: 10-01-2023 Patient encounter procedure ROSITA Marc Work Phone: [facility] Group-[facility] Work Phone: Start: 10-01-2023 End: 10-01-2023 ambulatory ROSITA Marc Work Phone: [facility] Work Phone: Start: 09-10-2023 Registered Recurring ROSITA Marc Work Phone: [facility] Start: 09-08-2023 End: 09-08-2023 ambulatory [facility] Start: 09-03-2023 End: 09-03-2023 Patient encounter procedure ROSITA Marc Work Phone: [facility] Phys[facility] Group- Start: 08-19-2023 IBT FOR OBESITY GROU P 2-10 30M Nely Cruz [facility] Start: 08-19-2023 End: 08-19-2023 ambulatory Manisha Marc [facility] Professional [employer] [facility] Other Start: 08-19-2023 Registered Recurring ROSITA Marc Work Phone: [facility] Work Phone: Start: 08-19-2023 End: 08-19-2023 Patient encounter procedure ROSITA Marc Work Phone: [facility] Work Phone: Start: 08-14-2023 Registered Recurring HEALTH TECHNICIAN Layla reyna Tari Work Phone: [facility] Start: 08-13-2023 End: 08-13-2023 ambulatory Manisha Tari Other [facility] Other Start: 08-13-2023 Office outpatient visit 15 minutes Manisha Marc [facility] Start: 08-13-2023 End: 08-13-2023 Patient encounter procedure HEALTH TECHNICIANJosé Miguel Marc Work Phone: [facility] Physician [facility] Work Phone: Start: 07-24-2023 End: 07-24-2023 ambulatory MELA ANDERSON Not Available Start: 07-21-2023 End: 07-21-2023 ambulatory Bud Combs MD Facility:[facility] Start: 07-19-2023 End: 07-19-2023 ambulatory ROSITA Thaonifer Tari Work Phone: [facility] Work Phone: Start: 07-19-2023 End: 07-19-2023 Patient encounter procedure ROSITA Manisha Tari Work Phone: [facility] Start: 07-15-2023 End: 07-15-2023 ambulatory Celio Mullins Other [facility] Other Start: 07-15-2023 Follow-up encounter Celio Mullins [facility] Start: 07-15-2023 End: 07-15-2023 Patient encounter procedure HEALTH TECHNICIANJosé Miguel ThaoManishaamita Marc Work Phone: [facility] Start: 07-07-2023 End: 07-07-2023 ambulatory Michelle Ernandez Other [facility] Other Start: 07-07-2023 Office outpatient visit 15 minutes Michelle Oma [facility] Start: 07-07-2023 End: 07-07-2023 Patient encounter procedure HEALTH TECHNICIANJosé Miguel Marc Work Phone: [facility] Work Phone: Start: 07-03-2023 Registered Recurring HEALTH TECHNICIANJosé Miguel Marc Work Phone: [facility] Start: 07-03-2023 End: 07-03-2023 Patient encounter procedure HEALTH TECHNICIANJosé Miguel Marc Work Phone: [facility] [place] Work Phone: Start: 07-03-2023 End: 07-03-2023 ambulatory ROSITA Marc Work Phone: [facility] Work Phone: Start: 07-01-2023 End: 07-01-2023 Patient encounter procedure HEALTH TECHNICIANJosé Miguel Marc Work Phone: [facility] [place] Work Phone: Start: 07-01-2023 End: 07-01-2023 ambulatory Manisha Marc Facility:[facility] Start: 06-29-2023 End: 06-29-2023 ambulatory Michelle Oma Other [facility] Other Start: 06-29-2023 Office outpatient visit 15 minutes Michelle Oma [facility] Start: 06-17-2023 Registered Recurring ROSITA Marc Work Phone: [facility] Work Phone: Start: 06-11-2023 End: 06-11-2023 ambulatory Manisha Marc Other [facility] Other Start: 06-11-2023 Office outpatient visit 25 minutes Manisha Tari [facility] Start: 05-06-2023 End: 05-06-2023 ambulatory Casandramila Hassan Other [facility] Other Start: 05-06-2023 Office outpatient visit 10 minutes Casandra Hassan [facility] Start: 05-01-2023 End: 05-01-2023 ambulatory Manisha Tari Other [facility] Other Start: 05-01-2023 Telephone encounter Manisha Parksbrian desai [facility] Start: 04-30-2023 End: 04-30-2023 ambulatory Manisha Tari Other [facility] Other Start: 04-30-2023 Encounter for genera l adult medical examination without abnormal findings Manisha Tari [facility] Start: 04-30-2023 Periodic preventive med est patient 18-39 yrs Manisha Marc [facility] Start: 04-29-2023 ([facility]) N Initial Provider Nely Pepe [facility] Start: 04-29-2023 End: 04-29-2023 ambulatory Nely Cruz Other [facility] Other Start: 03-25-2023 End: 03-25-2023 ambulatory Celio Mullins Other [facility] Other Start: 03-25-2023 Nutrition therapy Celio johns [facility] Start: 03-25-2023 Telephone encounter Celio guerrero [facility] Start: 03-14-2023 End: 03-14-2023 ambulatory Nely Cruz Other [facility] Other Start: 03-14-2023 Telephone encounter Nely Fitt [facility] Start: 02-11-2023 End: 02-11-2023 ambulatory Casandra Hassan Other [facility] Other Start: 02-11-2023 Office outpatient visit 15 minutes Casandra Hassan [facility] Start: 12-31-2022 End: 01-01-[address] TOBIAS OSCAR . Facility:[facility] Start: 11-26-2022 End: 11-27-[address] TOBIAS OSCAR . Facility:[facility] Start: 11-08-2022 End: 11-09-[address] BOOM ROD Facility:[facility] Start: 10-28-2022 End: 10-28-[address] TOBIAS OSCAR . Facility:[facility] Start: 07-13-2022 End: 07-13-2022 ambulatory Michelle Ernandez Other [facility] Other Start: 07-13-2022 Office outpatient visit 15 minutes Michelle Ernandez [facility] Start: 03-07-2022 End: 03-08-[address] BOOM ROD Facility:[facility] Start: 01-25-2022 Encounter for genera l adult medical examination without abnormal findings DR BOOM ROD [facility] Start: 01-21-2022 End: 01-22-[address] BOOM ROD Facility:[facility] Start: 01-21-2022 End: 01-22-2022 Encounter for general adult medical examination without abnormal findings DR BOOM ROD Facility:[facility] Start: 07-06-2021 End: 07-06-2021 ambulatory Michelle Ernandez Other [facility] Other Start: 07-06-2021 Office outpatient visit 15 minutes Michellenawaf Ernandez [facility] Start: 06-17-2021 Office outpatient visit 15 minutes Michelle Oma [facility] Start: 05-31-2021 Office outpatient visit 25 minutes Michelle Oma [facility] Start: 08-27-2018 End: 08-27-2018 ambulatory BRENT KINNEY Facility:[facility] Procedures Date Procedure Procedure Detail Performing Clinician Start: 10-08-2023 MRI of head HEALTH TECHNICIAN Heaven amita Marc Work Phone: Start: 05-31-2021 Piperacillin/tazobactam Michelle Oma Other Start: 08-27-2018 extraction, erupted tooth or exposed root (elevation and/or forceps removal) BRENT TROCONIS Start: 08-27-2018 removal of impacted tooth - soft tissue BRENT TROCONIS Start: 08-27-2018 Urine test visual color cmprsn meths BRENT TROCONIS Plan of Treatment Date Care Activity Detail Author Comprehensive metabo lic 2000 panel - Serum or Plasma [facility] enter Holter monitor study [facility] MR Unspecified body region F [facility] Immunizations Immunization Date Immunization Notes Care Provider Fa cility 03-03-2021 Do not use COVID-19 Pfizer 2 dose Manisha Marc Other [facility] 02-10-2021 Do not use COVID-19 Pfizer 2 dose Manisha Marc Other [facility] 08-03-2018 Toradol per 15 mg Michelle Dym ond Other [facility] Other Payers Date Payer Category Payer Self-pay [id number] 2022 Self-pay [id number] 2022 Private Health Insurance 1991 Unknown [id number] [id number]. 732 1991 Unknown [id number] 2.16.840.1.792646.3.579.2. 593 1991 Unknown [id number] 2.16.840.1.527753.3.579.2. 593 1991 Unknown [id number] 2.16.840.1.596030.3.579.2. 593 1991 Unknown [id number] 2.16.840.1.959093.3.579.2. 593 1991 Unknown [id number] 2.16.840.1.382794.3.579.2. 593 1991 Unknown [id number] 2.16.840.1.031816.3.579.2. 593 1991 Unknown [id number] 2.16.840.1.518121.3.579.2. 196 1991 Unknown [id number] 2.16.840.1.065055.3.579.2. 196 1991 Unknown [id number] 2.16.840.1.667377.3.579.2. 196 1991 Unknown [id number] 2.16.840.1.224994.3.579.2. 196 1991 Unknown [id number] 2.16.840.1.294673.3.579.2. 1259 1991 Unknown [id number] 2.16.840.1.734575.3.579.2. 1259 1991 Unknown [id number] 2.16.840.1.062359.3.579.2. 1259 1959 Medicaid [id number] 1959 Unknown [id number] [facility] [place] [id number] Unknown [id number] 2.16.840.1.597905.3.579.2. 531 Unknown [id number] 2.16.840.1.306959.3.579.2. 531 Unknown [id number] 2.16.840.1.092599.3.579.2. 531 Unknown [id number] 2.16.840.1.647109.3.579.2. 531 Unknown [id number] 2.16.840.1.297939.3.579.2. 531 Unknown [id number] 2.16.840.1.991032.3.579.2. 531 Unknown [id number] 2.16.840.1.379758.3.579.2. 531 Social History Date Type Detail Facility Unknown if ever smoked [facility] Other Sex Assigned At Sex Assigned At Bir th [facility] Other Start: 12-07-2021 End: 11-26-2023 Tobacco smoking status NHIS Never smoked tobacco (finding) [facility] Start: 1990 Sex Assigned At Female F [facility] Clinical Notes 05-31-2021 to 08-19-2023 [...] method for meal planning ; grocery shortcuts [facility] [employer] Other 12-27-2023 Evaluation note* Encounter Date Diagnosis [...] You have been given relevant education handouts. 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 Jun, Dietary surveillance and counseling (ICD-10 - [...] metformin 1000 mg total daily, managed by [facility] Jun, Asthma (ICD-10 - J45.909) Jun, Migraine (ICD-10 - G43.909) Jun, Primary hypertension (ICD-10 - I10) Currently on pharmacotherapy Potential for overtreatment given lightheadedness Jun, Other An additional 9 minutes was spent counseling the patient on behavior modification including proper nutrition and physical activity. [facility] Other 11-20-2023 Evaluation note* Encounter Date Diagnosis [...] until you feel better. You may take [id number] Imodium for diarrhea as needed. Avoid dairy foods as well as greasy fried foods. Follow-up with your physician if no improvement in 2 to 3 days. May return to work on Jun, Diarrhea, unspecified type (ICD-10 - R19.7) Diarrhea: adult home care material was printed [facility] Other 11-12-2023 Evaluation note* Encounter Date Diagnosis [...] to 3-day Jun, Bronchitis (ICD-10 - J40) [facility] Other 10-25-2023 Evaluation note* Encounter Date Diagnosis Assessment Notes Treatment Notes Treatment Clinical Notes May, Degenerative lumbar disc (ICD-10 - M51.36) L4-5 Pt would like a referral to pain management regarding her chronic back pain. Her last x-ray of the lumbar spine was completed 10/2022 at [facility]--reviewed and in scanned documents. Referral placed. [...] disorder (ICD-10 - F31.81) Referral placed to [facility] for medication mangement. [facility] Other 09-19-2023 Evaluation note* Encounter Date Diagnosis Assessment Notes Treatment Notes Treatment Clinical Notes Apr, Exposure to head lice (ICD-10 - Z20.7) Discussed with patient exam is without any signs of current lice infection. May return to work tomorrow. Patient completed next treatment yesterday. Patient verbalized understanding. [facility] Other 09-14-2023 Evaluation note* Encounter Date Diagnosis Assessment Notes Treatment Notes Treatment Clinical Notes Apr, Primary hypertension (ICD-10 - I10) [facility] Other 09-13-2023 Evaluation note* Encounter Date Diagnosis [...] (ICD-10 - R73.01) Will obtain records from [facility] for most recent labs. Patient is [...] Low back pain, unspecified (ICD-10 - M54.50) [facility] Other 09-12-2023 Evaluation note* Encounter Date Diagnosis [...] 2) Aim for < 45 g carb/meal [facility] Other 08-08-2023 Evaluation note* Encounter Date Diagnosis [...] voice recognition software. 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 Mar, Dietary surveillance and counseling (ICD-10 - [...] as sweet tea, replace ice cream with Emirati yogurt, use protein shake in the a.m. [...] with the patient, and documenting clinical information. [facility] Other 06-27-2023 Evaluation note* Encounter Date Diagnosis [...] 7 days, sooner if significantly worsening symptoms. [facility] Other 11-26-2022 Evaluation note* Encounter Date Diagnosis [...] 3 days. Off work today and tomorrow [facility] Other 11-19-2021 Evaluation note* Encounter Date Diagnosis [...] writting by CDC Care At Home document. [facility] Other 10-31-2021 Evaluation note* Encounter Date Diagnosis [...] writting by CDC Care At Home document. [facility] [employer] Other 10-14-2021 Evaluation note* Encounter Date Diagnosis Assessment Notes Treatment Notes Treatment Clinical Notes May, Dysuria (ICD-10 - R30.0) May, Urinary tract infection, site not specified (ICD-10 - N39.0) May, Hematuria, unspecified (ICD-10 - R31.9) [facility] Other Evaluation [facility]No [facility] [employer] Other evalugworq noteNo assessment information available [facility] Work Phone: evaluation note* Diagnosis Onset Date Resolution Status Dietary surveillance and counseling acute Exercise counseling acute Food insecurity acute PCOS (polycystic ovarian syndrome) acute Prediabetes acute Severe obesity (BMI >= 40) a [facility] Work Phone: evaluation note* Diagnosis Onset Date Resolution Status Dietary surveillance and counseling acute Exercise counseling acute Food insecurity acute PCOS (polycystic ovarian syndrome) acute Prediabetes acute Severe obesity (BMI >= 40) a cute Lightheadedness acute Menorrhagia acute Palpitations acute [facility] Work Phone: evaluation note* Diagnosis Onset Date Resolution Status Dietary surveillance and counseling acute Exercise counseling acute Food insecurity acute PCOS (polycystic ovarian syndrome) acute Prediabetes acute Severe obesity (BMI >= 40) a cute Lightheadedness acute Menorrhagia acute Palpitations acute Dietary surveillance and counseling acute Exercise counseling acute Severe obesity (BMI >= 40) a [facility] Work Phone: Evaluation note* Diagnosis Onset Date Resolution Status Lightheadedness acute Menorrhagia acute Palpitations acute Dietary surveillance and counseling acute Exercise counseling acute Severe obesity (BMI >= 40) a [facility] Work Phone: evaluation note* Diagnosis Onset Date Resolution Status Aphasia acute History of seizures acute Memory loss acute Migraine acute [facility] Work Phone: history general Narrative - [...] History Hospitalized for blood l oss 2010 [facility] Other history general Narrative - Reported* Type [...] History Hospitalized for blood l oss 2010 [facility] Other history general Narrative - Reported* Type [...] History Hospitalized for blood l oss 2010 [facility] Other history general Narrative - Reported* Type [...] History Hospitalized for blood l oss 2010 [facility] Other history general Narrative - Reported* Type [...] History Hospitalized for blood l oss 2010 [facility] Other Hisatwe general Narrative - Reported* Type Description Date [...] History Hospitalized for blood l oss 2010 [facility] Other Hisitty general Narrative - Reported* Type Description Date [...] History Hospitalized for blood l oss 2010 [facility] Other Reason for referral (narrative)* Reason *06/20 would sherif ke a referral to pscyiatrist -- was recently diagnosed with bipolar and would like medication management. Diagnosis 1 Bipolar 2 disorder ( F31.81) Referral Organization [facility] Damion tsang Referring Provider First Name Manisha Referring Provider Last Name Tari Referring Provider Specialty Nurse Luist ernesto Referred Organization [facility] Ayden Referred Address [address],[place], [place],[address] Referred Provider Specialty Psychiatry Referral Priority Routine General Notes Paola Henderson 01:25:30 PM >received today, not sure if [facility] does medication management, waiting for notes to be locked Paola Henderson 06/13/2023 10:34:39 AM >notes locked, referral faxed Clinical Notes p: [phone] f: [id number] [facility] Reason *FU 06/20 would li yaneli a referral to pain management for other options for pain control for back pain Diagnosis 1 Degenerative lumbar disc (M51.36) Referral Organization [facility] Damon tsang Referring Provider First Name Manisha Referring Provider Last Name Tari Referring Provider Specialty Nurse Noble orozco Referred [facility] [facility] Referred Provider Yrn Parsons Referred Address [address], [place],[address] Referred Provider Specialty [facility] Referral Priority Routine General Notes Paola Henderson 01:21:23 PM >received today, waiting for notes to be locked Paola Henderson 06/13/2023 10:25:26 AM >notes locked, referral faxed Clinical Notes f: [id number] Watsi Other Summary Purpose Family History No Family [...] and content) DATE CREATED AUTHOR 08/27/2021 [facility] [employer] [facility] DATE CREATED AUTHOR AUTHOR'S ORGANIZ ATION 01/01/2023 [facility] DATE CREATED AUTHOR AUTHOR'S ORGANIZ ATION 01/30/2024 [facility] DATE CREATED AUTHOR AUTHOR'S ORGANIZ ATION 03/18/2024 [facility] DATE CREATED AUTHOR AUTHOR'S ORGANIZ ATION 05/22/2024 [facility] [address] [facility] REASON FOR VISIT (unrecogniz ed [...] Member Role Status Dates Manisha Marc APRN SENIOR PARTNER-C Primary Care Provider Active Team Status: Active Member Role Status Dates Manisha Marc APRN SENIOR PARTNER-C Primary Care Provider, Attending Provider Active Team Status: Inactive Member Role Status Dates Manisha Marc APRN SENIOR PARTNER-C Primary Care Provider Active Celio Mullins DO Attending Provider Active Team Status: Inactive Member Role Status Dates Manisha Marc APRN SENIOR PARTNER-C Primary Care Provider Active Clinton Frazier MD Attending Provider Active Team Status: Inactive Member Role Status Dates Manisha Marc APRN SENIOR PARTNER-C Primary Care Provider Active Start: July 032022 End: July 03, 2023 Celio Mullins DO Attending Provider Active St art: July 03, 2023 End: July 03, 2023 Team Status: Active Member Role Status Dates Manisha Marc APRN SENIOR PARTNER-C Primary Care Provider Active Start: July 032022 Edward Gilmore MD Attending Provider Active Start: July 03, 2023 Team Status: Inactive Member Role Status Dates Michelle Ernandez SENIOR PARTNER-C Attending Provider Active S tart: July 07, 2023 End: July 07, 2023 Team Status: Inactive Member Role Status Dates Celio Mullins DO Attending Provider Active St art: July 15, 2023 End: July 15, 2023 Team Status: Inactive Member Role Status Dates Manisha Marc APRN SENIOR PARTNER-C Primary Care Provider Active Start: July End: July 19, 2023 Clinton Frazier MD Attending Provider Active Start: July 19, 2023 End: July 19, 2023 Team Status: Inactive Member Role Status Dates Manisha Marc APRN SENIOR PARTNER-C Attending Provider Act rafal Start: August 13, 2023 End: August 13, 2023 Team Status: Inactive Member Role Status Dates Nely Cage [facility] Attending Provider Active Start: August 19, 2023 End: August 19, 2023 Team Status: Active Member Role Status Dates Manisha Marc APRN SENIOR PARTNER-C Primary Care Provider, Attending Provider Active Start: August 19, 2023 Team Status: Inactive Member Role Status Dates Manisha Marc APRN SENIOR PARTNER-C Attending Provider Act rafal Start: September 03, 2023 End: September 03, 2023 Team Status: Inactive Member Role Status Dates Manisha Marc APRN SENIOR PARTNER-C Primary Care Provider Active Start: October 012023 End: October 01, 2023 Celio Mullins DO Attending Provider Active St art: October 01, 2023 End: October 01, 2023 Team Status: Active Member Role Status Dates Manisha Marc APRN SENIOR PARTNER-C Primary Care Provider Active Start: August 142022 Edward Gilmore MD Attending Provider Active Start: August 14, 2023 Team Status: Active Member Role Status Dates Manisha Marc APRN SENIOR PARTNER-C Primary Care Provider, Attending Provider Active Start: October 06, 2023 Team Status: Inactive Member Role Status Dates Manisha Marc APRN SENIOR PARTNER-C Primary Care Provider Active Start: October 082023 End: October 08, 2023 Akil Cox DO Attending Provider Active Start: October 08, 2023 End: October 08, 2023 Team Status: Active Member Role Status Dates Manisha Marc APRN SENIOR PARTNER-C Primary Care Provider, Attending Provider Active Start: October 30, 2023 Team Status: Inactive Member Role Status Dates Manisha Marc APRN SENIOR PARTNER-C Primary Care Provider, Attending Provider Active Start: November 03, 2023 End: November 03, 2023 Team Status: Active Member Role Status Dates Manisha Marc APRN SENIOR PARTNER-C Primary Care Provider Active Start: August Edward Gilmore MD Attending Provider Active Start: September 10, 2023 Team Status: Inactive Member Role Status Dates Manisha Marc HEALTH TECHNICIAN SENIOR PARTNER-C Primary Care Provider Active Start: November 26, 2023 End: November 26, 2023 Celio Mullins DO Attending Provider Active St art: November 26, 2023 End: November 26, 2023 Team Status: Active Member Role Status Dates Manisha Marc APRN SENIOR PARTNER-C Primary Care Provider Active Start: January 01, 2024 Edward Gilmore MD Attending Provider Active Start: January 01, 2024 Team Status: Active Member Role Status Dates Manisha Marc APRN SENIOR PARTNER-C Primary Care Provider Active Start: April 03, 2024 Edward Gilmore MD Attending Provider Active Start: April 03, 2024 Team Status: Active Member Role Status Dates Manisha Marc APRN SENIOR PARTNER-C Primary Care Provider Active Start: April 12, 2024 Jaymiehannah Barbozated Griffin DO Attending Provider Active Start: April 12, 2024 Team Status: Inactive Member Role Status Dates Manisha Marc APRN SENIOR PARTNER-C Primary Care Provider, Attending Provider Active Start: [...] BE BASED ON THE PRIMARY CLINICAL RECORDS. [employer] [facility]. provides no warranty or guarantee of the accuracy or completeness of information in this document.
[2024-06-07 16:27] LABS: Percent Iron Saturation 13.4 %
== END 2024-06-07 15:33 | disposition home or self-care (01) ==
LOC: LAB 15:33
PROVIDERS: PCP Nurse Practitioner Family; Visit Provider Nurse Practitioner Family
DX: E61.1 Iron deficiency (principal)
CPT/HCPCS: 36415; 83540; 83550

== ENCOUNTER 2024-06-08 22:17 | Emergency (ER) | payer OTHER, SELFPAY ==
--- OUTSIDE RECORDS SUMMARY | 2024-06-08 22:24 | XMS_ITS | CCD ---
Author Organization [facility] Care Team Providers Care Policy Advisor Name Role Phone BRENT KINNEY Referring Unavailable BRENT KINNEY Attending Unavailable BRENT KINNEY Admitting Unavailable Michelle Ernandez Unavailable VIOLA, DR NUR Consulting Unavailable PENSACOLA, DR NUR Admitting Unavailable HOUSE, DR NUR [...] Attending Provider DO Celio Mullins Attending Provider [phone] ROSITA Marc Primary Care Provider MD Clinton Frazier Attending Provider ROSITA Marc Attending Provider ROSITA Marc Primary Care Provider DO Celio Mullins Attending Provider MD Edward Gilmore Attending Provider [phone] MD Clinton Frazier Attending Provider ROSITA Marc Primary Care Provider MD Edward Gilmore Attending Provider DO Akil Cox Attending Provider ROSITA Marc Primary Care Provider MD Edward Gilmore Attending Provider ROSITA Marc Attending Provider [phone] DO Akil Cox Attending Provider ROSITA Marc Primary Care Provider MD Edward Gilmore Attending Provider [phone] ROSITA Marc Primary Care Provider MD Edward Gilmore Attending Provider [phone] Garret CROWLEY, Andrius Vytautcortez Attending Unavailable Garret CROWLEY, Andrius Vytautas Attending Unavailable Garret CROWLEY, Andrius Vytautas Attending Unavailable Garret CROWLEY, Andrius Vytautas Attending Unavailable TOBIAS OSCAR Attending Unavailable MELA ANDERSON Attending Unavailable MELA ANDERSON Attending Unavailable ROSITA Marc Primary Care Provider MD Edward Gilmore Attending Provider [phone] Manisha Marc Attending Unavailable Rohrbacher, Manisha Admitting [...] Unavailable Ivon Mullinsten M Attending Unavailable Denyrbacher, [facility] Care Unavailable Akil Cox Attending Unavailab Akil Avila Admitting Unavailab le Denyrbacher, [facility] Unavailable Allergies Allergy Classification Reported Allergen(s) Allergy Type Date of Onset Reaction(s) Facility (20 sources) Amoxicillin; Translations: [AMOXICILLIN] Drug Allergy 07-08-20 16 rash [facility] Repository (10 sources) Cefaclor; Translations: [CEFACLOR] Drug Allergy 04-14-20 15 Unknown Reaction, [facility] Repository (19 sources) Erythromycin; Translations: [ERYTHROMYCIN] Drug Allergy 04-14-20 15 [facility] Repository (19 sources) Cefaclor; Translations: [Ceclor] Drug Allergy 04-17-20 15 [facility] Repository (9 sources) Erythromycin Drug Allergy 04-17-20 15 Unknown Reaction, [facility] Repository (9 sources) Cephalosporins (Antibiotic); Translations: [Cephalosporins] Allergy to substance 12-10-19 22 Unknown Reaction, Rash [facility] (3 sources) Lactulose; Translations: [lactulose] Drug Allergy 02-12-20 [address] Unknown Reaction [facility] (1 source) Erythromycin Drug Allergy 04-21-[address] [facility] Repository Medications Current Medications Medication Drug Class(es) Dates Sig (Normalized) Sig (Original) [id number] 200 actuat albuterol 0.09 mg/actuat metered dose [...] 01, 2023 10:15am take 1 tablet by miarnda th every twenty-four hours Melatonin 10 MG [...] Basophils (Bld) [#/Vol] 0.1 10 3/uL 0.0-0.[address] [facility] Basophils/100 WBC Auto (Bld) on 04-12-2024 Basophils/100 WBC (Bld) 0.6 % 0.2-2.0 [facility] Buprenorphine [Presence] in Urineon 04-12-2024 Buprenorphine Ql (U) Negative NEGATIVE [facility] Comment on above: DRUG CLASS TEST SYST EM CUT-OFF CONCENTRATIONS ARE ASFOLLOWS:AMP (Amphetamine): 500 ng/mLBAR (Barbiturates): 200 ng/mLBZO (Benzodiazepines): 150 ng/mLBUP (Buprenorphine): 10 ng/mLCOC (Cocaine): 150 ng/mLmAMP (Methamphetamine): 500 ng/mLMTD (Methadone): 200 ng/mLOPI (Opiates): 100 ng/mLOXY (Oxycodone): 100 ng/mLPCP (Phencyclidine): 25 ng/mLTHC (Cannabinoids): 50 ng/mLTCA (Trycyclic Antidepressants): 300 ng/mL Eosinophils/100 WBC Auto (Bl d)on 04-12-2024 Eosinophils/100 WBC (Bld) 1.0 % 0.9-7.[address] [facility] Erythrocyte distribution wid th Auto (RBC) [Ratio]on 04-12-2024 Erythrocyte distribution width (RBC) [Ratio] 17.4 % High 11.0-15.[address] [facility] Estimated glomerular filtrat ion rate (GFR) non- Americanon 04-12-2024 GFR/1.73 sq M.predicted among non-blacks MDRD (S/P/Bld) [Vol rate/Area] mL/min/{1.73_m2} >=[address] [facility] Globulin Calc (S) [Mass/Vol] on 04-12-2024 Globulin (S) [Mass/Vol] 4.1 g/dL [facility] HCG ( test) IA.rapi d Ql (U)on 04-12-2024 HCG ( test) Ql (U) Negative NEGATIVE [facility] Hematocrit Auto (Bld) [Volum e fraction]on 04-12-2024 Hematocrit (Bld) [Volume fraction] 37.9 % 36.0-48.[address] [facility] Hemoglobin [Mass/volume] in Bloodon 04-12-2024 Hemoglobin (Bld) [Mass/Vol] 11.6 g/dL Low 12.0-16.[address] [facility] Laboratory - Chemistry and C hemistry - challengeon 04-12-2024 Albumin [Mass/Vol] 3.3 g/dL Low 3.4-5.0 [facility] ALP [Catalytic activity/Vol] 75 U/L 46-[address] [facility] ALT [Catalytic activity/Vol] 36 U/L 14-[address] [facility] AST [Catalytic activity/Vol] 19 U/L 15-[address] [facility] Bilirubin [Mass/Vol] 0.3 mg/dL 0.2-1.0 [facility] Calcium [Mass/Vol] 8.6 mg/dL 8.5-10.1 [facility] Chloride [Moles/Vol] 101 mmol/L 98-107 [facility] CO2 [Moles/Vol] 28.7 mmol/L 21.0-32.0 [facility] Creatinine [Mass/Vol] 0.70 mg/dL 0.55-1.02 [facility] GFR/1.73 sq M.predicted MDRD (S/P/Bld) [Vol rate/Area] mL/min/{1.73_m2} >=[address] [facility] Glucose [Mass/Vol] 103 mg/dL 74-106 [facility] Potassium [Moles/Vol] 3.7 mmol/L 3.5-5.1 [facility] Protein [Mass/Vol] 7.4 g/dL 6.4-8.2 [facility] Sodium [Moles/Vol] 136 mmol/L 136-145 [facility] Urea nitrogen [Mass/Vol] 10.0 mg/dL 7.0-18.[address] [facility] Urea nitrogen/Creatinine [Mass ratio] 14.3 mg/mg [facility] Bilirubin Ql (U) Negative NEGATIVE [facility] Glucose (U) [Mass/Vol] Negative NEGATIVE [facility] Ketones Ql (U) Negative NEGATIVE [facility] pH (U) 6.0 [pH] 5.0-9.[address] [facility] Specific gravity (U) [Rel density] >=1.030 Abnormal 1.005-1.[address] [facility] Urobilinogen Qn (U) 0.2 {Tamiko'U}/dL 0.2-1.[address] [facility] Laboratory - Drug toxicology on 04-12-2024 Amphetamines Ql (U) Negative NEGATIVE [facility] Benzodiazepines Ql (U) Negative NEGATIVE [facility] Cocaine Ql (U) Negative NEGATIVE [facility] Opiates Ql (U) Negative NEGATIVE [facility] Phencyclidine Ql (U) Negative NEGATIVE [facility] Laboratory - Hematology and Cell countson 04-12-2024 Immature granulocytes/100 WBC (Bld) 0.3 % 0.0-0.[address] [facility] Laboratory - Specimen inform ationon 04-12-2024 Appearance (U) CLEAR CLEAR [facility] Color (U) YELLOW YELLOW [facility] Laboratory - Urinalysison Leukocyte esterase Test strip Ql (U) Negative NEGATIVE [facility] Mucus Ql (Urine sed) TRACE Abnormal NONE SEEN [facility] Nitrite Ql (U) Negative NEGATIVE [facility] Protein Ql (U) Negative NEG/TRACE [facility] Leukocytes [#/volume] correc carmelita for nucleated erythrocytes in Blood by Automated counon 04-12-2024 WBC corrected for nucl RBC Auto (Bld) [#/Vol] 9.9 10 3/uL 4.0-11.[address] [facility] Lymphocytes Auto (Bld) [#/Vo l]on 04-12-2024 Lymphocytes (Bld) [#/Vol] 3.5 10 3/uL 1.2-3.[address] [facility] Lymphocytes/100 WBC Auto (Bl d)on 04-12-2024 Lymphocytes/100 WBC (Bld) 35.5 % 20.5-60.[address] [facility] MCH Auto (RBC) [Entitic mass ]on 04-12-2024 MCH (RBC) [Entitic mass] 24.5 pg Low 26.7-34.[address] [facility] MCHC Auto (RBC) [Mass/Vol]on 04-12-2024 MCHC (RBC) [Mass/Vol] 30.6 g/dL 29.9-35.2 [facility] MCV Auto (RBC) [Entitic vol] on 04-12-2024 MCV (RBC) [Entitic vol] 80.1 fL Low 81.0-99.0 [facility] Methadone [Presence] in Urin e by Screen methodon 04-12-2024 Methadone Screen Ql (U) Negative NEGATIVE [facility] Monocytes Auto (Bld) [#/Vol] on 04-12-2024 Monocytes (Bld) [#/Vol] 0.5 10 3/uL 0.3-0.[address] [facility] Monocytes/100 WBC Auto (Bld) on 04-12-2024 Monocytes/100 WBC (Bld) 4.7 % 1.7-12.0 [facility] Neutrophils Auto (Bld) [#/Vo l]on 04-12-2024 Neutrophils (Bld) [#/Vol] 5.7 10 3/uL 1.4-6.[address] [facility] Neutrophils/100 WBC Auto (Bl d)on 04-12-2024 Neutrophils/100 WBC (Bld) 57.9 % 43.0-75.[address] [facility] No Panel Informationon 04-12 Acetaminophen Level <2.0 ug/mL Low 10.0-30.0 [facility] Eosinophils # (Auto) 0.1 10 3/uL 0.0-0.7 [facility] Ethyl Alcohol Level <3 mg/dL [facility] Comment on above: NOTE: 80 mg/dl is th e legal limit for a blood alcohol level Immature Granulocyte # (Auto) 0.03 10 3/uL 0.00-0.[address] [facility] Salicylates Level <2.8 mg/dL <=19.9 [facility] Urine Bacteria SMALL #/HPF Abnormal NONE SEEN [facility] Urine Barbiturates Screen Negative NEGATIVE [facility] Urine Culture Reflexed YES [facility] Urine Marijuana (THC) Screen Negative NEGATIVE [facility] Urine Methamphetamines Screen Negative NEGATIVE [facility] Urine Occult Blood Negative NEGATIVE [facility] Urine Other Casts NONE SEEN #/LPF NONE SEEN [facility] Urine Other Crystals None Seen #/HPF None Seen [facility] Urine RBC 0-2 #/HPF 0-[address] [facility] Urine Squamous Epithelial Cells FEW #/LPF Abnormal NONE/RARE [facility] Urine Transitional Epithelial Cells RARE #/LPF Abnormal NONE SEEN [facility] Urine WBC 2-5 #/HPF Abnormal NONE SEEN [facility] Platelet mean volume Auto (B ld) [Entitic vol]on 04-12-2024 Platelet mean volume (Bld) [Entitic vol] 10.2 fL 9.5-13.[address] [facility] Platelets Auto (Bld) [#/Vol] on 04-12-2024 Platelets (Bld) [#/Vol] 299 10 3/uL 150-[address] [facility] RBC Auto (Bld) [#/Vol]on RBC (Bld) [#/Vol] 4.73 10 6/uL 4.20-5.40 [facility] Serum or plasma albumin/glob ulin mass ratioon 04-12-2024 Albumin/Globulin [Mass ratio] 0.8 {ratio} [facility] Serum or plasma anion gap de terminationon 04-12-2024 Anion gap [Moles/Vol] 10.0 mmol/L [facility] Urine tricyclic antidepressa nt measurementon 04-12-2024 Tricyclic antidepressants (U) [Mass/Vol] Negative NEGATIVE [facility] oxyCODONE+oxyMORphone [Prese nce] in Urine by Screen methodon 04-12-2024 oxyCODONE+oxyMORphone Screen Ql (U) Negative NEGATIVE [facility] Basophils Auto (Bld) [#/Vol] on 11-03-2023 Basophils (Bld) [#/Vol] 0.0 10 3/uL 0.0-0.[address] [facility] Basophils/100 WBC Auto (Bld) on 11-03-2023 Basophils/100 WBC (Bld) 0.5 % 0.2-2.0 [facility] Eosinophils/100 WBC Auto (Bl d)on 11-03-2023 Eosinophils/100 WBC (Bld) 1.4 % 0.9-7.[address] [facility] Erythrocyte distribution wid th Auto (RBC) [Ratio]on 11-03-2023 Erythrocyte distribution width (RBC) [Ratio] 16.3 % 11.0-15.[address] [facility] Estimated glomerular filtrat ion rate (GFR) non- Americanon 11-03-2023 GFR/1.73 sq M.predicted among non-blacks MDRD (S/P/Bld) [Vol rate/Area] mL/min/{1.73_m2} >=[address] [facility] Globulin Calc (S) [Mass/Vol] on 11-03-2023 Globulin (S) [Mass/Vol] 4.0 g/dL [facility] Hematocrit Auto (Bld) [Volum e fraction]on 11-03-2023 Hematocrit (Bld) [Volume fraction] 26.1 % 36.0-48.[address] [facility] Hemoglobin [Mass/volume] in Bloodon 11-03-2023 Hemoglobin (Bld) [Mass/Vol] 7.8 g/dL 12.0-16.[address] [facility] Human papilloma virus 16+18+ 31+33+35+39+45+51+52+56+58+59+66+68 DNA [Presence] in [place] 11-03-2023 HPV 16+18+31+33+35+39+45+51 +52+56+58+59+66+68 DNA Probe+sig amp Ql (Cvx) Negative Negative [facility] Comment on above: This nucleic acid am plification test detects fourteen high-risk HPV types (16,18,31,33,35,39,45,51,52,56,58,59,66,68)without differentiation.Performed at: = - [facility] [id number] Director: Monse Cardona MD, Phone: [phone] at: [facility] [id number] Director: Monse Cardona MD, Phone: [phone] Iron binding capacity [Mass/ volume] in Serum or Plasmaon 11-03-2023 Iron binding capacity [Mass/Vol] 512.0 ug/dL 250.0-450.[address] [facility] Iron saturation [Mass Fracti on] in Serum or Plasmaon 11-03-2023 Iron saturation [Mass fraction] 2.7 % [facility] Laboratory - Chemistry and C hemistry - challengeon 11-03-2023 Albumin [Mass/Vol] 3.1 g/dL 3.4-5.0 [facility] ALP [Catalytic activity/Vol] 63 U/L 46-[address] [facility] ALT [Catalytic activity/Vol] 29 U/L 14-[address] [facility] AST [Catalytic activity/Vol] 18 U/L 15-[address] [facility] Bilirubin [Mass/Vol] 0.2 mg/dL 0.2-1.0 [facility] Calcium [Mass/Vol] 8.7 mg/dL 8.5-10.1 [facility] Chloride [Moles/Vol] 102 mmol/L 98-107 [facility] CO2 [Moles/Vol] 27.6 mmol/L 21.0-32.0 [facility] Creatinine [Mass/Vol] 0.70 mg/dL 0.55-1.02 [facility] Ferritin [Mass/Vol] 6.0 ng/mL 8.0-252.0 [facility] GFR/1.73 sq M.predicted MDRD (S/P/Bld) [Vol rate/Area] mL/min/{1.73_m2} >=[address] [facility] Glucose [Mass/Vol] 103 mg/dL 74-106 [facility] Iron [Mass/Vol] 14.0 ug/dL 50.0-170.[address] [facility] Potassium [Moles/Vol] 3.8 mmol/L 3.5-5.1 [facility] Protein [Mass/Vol] 7.1 g/dL 6.4-8.2 [facility] Sodium [Moles/Vol] 139 mmol/L 136-145 [facility] Urea nitrogen [Mass/Vol] 11.0 mg/dL 7.0-18.[address] [facility] Urea nitrogen/Creatinine [Mass ratio] 15.7 mg/mg [facility] Laboratory - Hematology and Cell countson 11-03-2023 Immature granulocytes/100 WBC (Bld) 0.4 % 0.0-0.[address] [facility] Leukocytes [#/volume] correc carmelita for nucleated erythrocytes in Blood by Automated counon 11-03-2023 WBC corrected for nucl RBC Auto (Bld) [#/Vol] 7.4 10 3/uL 4.0-11.[address] [facility] Lymphocytes Auto (Bld) [#/Vo l]on 11-03-2023 Lymphocytes (Bld) [#/Vol] 2.5 10 3/uL 1.2-3.[address] [facility] Lymphocytes/100 WBC Auto (Bl d)on 11-03-2023 Lymphocytes/100 WBC (Bld) 33.6 % 20.5-60.[address] [facility] MCH Auto (RBC) [Entitic mass ]on 11-03-2023 MCH (RBC) [Entitic mass] 24.8 pg 26.7-34.[address] [facility] MCHC Auto (RBC) [Mass/Vol]on 11-03-2023 MCHC (RBC) [Mass/Vol] 29.9 g/dL 29.9-35.2 [facility] MCV Auto (RBC) [Entitic vol] on 11-03-2023 MCV (RBC) [Entitic vol] 82.9 fL 81.0-99.0 [facility] Monocytes Auto (Bld) [#/Vol] on 11-03-2023 Monocytes (Bld) [#/Vol] 0.4 10 3/uL 0.3-0.[address] [facility] Monocytes/100 WBC Auto (Bld) on 11-03-2023 Monocytes/100 WBC (Bld) 5.6 % 1.7-12.0 [facility] Neutrophils Auto (Bld) [#/Vo l]on 11-03-2023 Neutrophils (Bld) [#/Vol] 4.3 10 3/uL 1.4-6.[address] [facility] Neutrophils/100 WBC Auto (Bl d)on 11-03-2023 Neutrophils/100 WBC (Bld) 58.5 % 43.0-75.[address] [facility] No Panel Informationon 11-02 Eosinophils # (Auto) 0.1 10 3/uL 0.0-0.7 [facility] Immature Granulocyte # (Auto) 0.03 10 3/uL 0.00-0.[address] [facility] HPV High Risk Other Comment Note . [facility] Comment on above: TESTS RESULT FLAG UN ITS REF RANGE LAB -DIAGNOSIS: 02 NEGATIVE FOR INTRAEPITHELIAL LESION OR MALIGNANCY.Specimen adequacy: 02 Satisfactory for evaluation. Endocervical and/or squamous metaplastic cells (endocervical component) are present.Performed by: 02 Beverly Escalante, Medical Claims Analyst (ASCP). 02Note: Note 02 The Pap smear [...] <-Panic Low,>-Panic High,A-Abnormal,AA-Critical Abnormal ------Performed at:[address] [phone] Monse Cardona MD, Reference Lab Test Patient Age Note . [facility] Comment on above: TESTS RESULT FLAG UN ITS REF RANGE LAB - Clinician Provided Cytology Information Source.............Cervix;Endocervix No. of containers..01 ThinPrep VialAge Jean-Pierre YOON Elise... 31 FLAG LEGEND: L-Low Normal,H-High Normal,LL-Alert Low,HH-Alert High <-Panic Low,>-Panic High,A-Abnormal,AA-Critical Abnormal ------Performed at:01 =[facility] [address] [place] [address] Monse Cardona MD, Platelet mean volume Auto (B ld) [Entitic vol]on 11-03-2023 Platelet mean volume (Bld) [Entitic vol] 9.6 fL 9.5-13.[address] [facility] Platelets Auto (Bld) [#/Vol] on 11-03-2023 Platelets (Bld) [#/Vol] 323 10 3/uL 150-[address] [facility] RBC Auto (Bld) [#/Vol]on RBC (Bld) [#/Vol] 3.15 10 6/uL 4.20-5.40 [facility] Serum or plasma albumin/glob ulin mass ratioon 11-03-2023 Albumin/Globulin [Mass ratio] 0.8 {ratio} [facility] Serum or plasma anion gap de terminationon 11-03-2023 Anion gap [Moles/Vol] 13.2 mmol/L [facility] Basophils Auto (Bld) [#/Vol] on 10-30-2023 Basophils (Bld) [#/Vol] 0.0 10 3/uL 0.0-0.[address] [facility] Basophils/100 WBC Auto (Bld) on 10-30-2023 Basophils/100 WBC (Bld) 0.6 % 0.2-2.0 [facility] Eosinophils/100 WBC Auto (Bl d)on 10-30-2023 Eosinophils/100 WBC (Bld) 1.2 % 0.9-7.[address] [facility] Erythrocyte distribution wid th Auto (RBC) [Ratio]on 10-30-2023 Erythrocyte distribution width (RBC) [Ratio] 16.6 % 11.0-15.[address] [facility] Estimated glomerular filtrat ion rate (GFR) non- Americanon 10-30-2023 GFR/1.73 sq M.predicted among non-blacks MDRD (S/P/Bld) [Vol rate/Area] mL/min/{1.73_m2} >=[address] [facility] HCG ( test) IA.rapi d Ql (U)on 10-30-2023 HCG ( test) Ql (U) Negative NEGATIVE [facility] Hematocrit Auto (Bld) [Volum e fraction]on 10-30-2023 Hematocrit (Bld) [Volume fraction] 26.6 % 36.0-48.[address] [facility] Hemoglobin [Mass/volume] in Bloodon 10-30-2023 Hemoglobin (Bld) [Mass/Vol] 7.9 g/dL 12.0-16.[address] [facility] Laboratory - Chemistry and C hemistry - challengeon 10-30-2023 Calcium [Mass/Vol] 8.5 mg/dL 8.5-10.1 [facility] Chloride [Moles/Vol] 101 mmol/L 98-107 [facility] CO2 [Moles/Vol] 28.8 mmol/L 21.0-32.0 [facility] Creatinine [Mass/Vol] 0.62 mg/dL 0.55-1.02 [facility] GFR/1.73 sq M.predicted MDRD (S/P/Bld) [Vol rate/Area] mL/min/{1.73_m2} >=[address] [facility] Glucose [Mass/Vol] 104 mg/dL 74-106 [facility] Potassium [Moles/Vol] 4.0 mmol/L 3.5-5.1 [facility] Sodium [Moles/Vol] 137 mmol/L 136-145 [facility] Urea nitrogen [Mass/Vol] 8.0 mg/dL 7.0-18.[address] [facility] Urea nitrogen/Creatinine [Mass ratio] 12.9 mg/mg [facility] Laboratory - Hematology and Cell countson 10-30-2023 Immature granulocytes/100 WBC (Bld) 0.4 % 0.0-0.[address] [facility] Leukocytes [#/volume] correc carmelita for nucleated erythrocytes in Blood by Automated counon 10-30-2023 WBC corrected for nucl RBC Auto (Bld) [#/Vol] 7.3 10 3/uL 4.0-11.[address] [facility] Lymphocytes Auto (Bld) [#/Vo l]on 10-30-2023 Lymphocytes (Bld) [#/Vol] 2.2 10 3/uL 1.2-3.[address] [facility] Lymphocytes/100 WBC Auto (Bl d)on 10-30-2023 Lymphocytes/100 WBC (Bld) 30.2 % 20.5-60.[address] [facility] MCH Auto (RBC) [Entitic mass ]on 10-30-2023 MCH (RBC) [Entitic mass] 25.0 pg 26.7-34.[address] [facility] MCHC Auto (RBC) [Mass/Vol]on 10-30-2023 MCHC (RBC) [Mass/Vol] 29.7 g/dL 29.9-35.2 [facility] MCV Auto (RBC) [Entitic vol] on 10-30-2023 MCV (RBC) [Entitic vol] 84.2 fL 81.0-99.0 [facility] Monocytes Auto (Bld) [#/Vol] on 10-30-2023 Monocytes (Bld) [#/Vol] 0.3 10 3/uL 0.3-0.[address] [facility] Monocytes/100 WBC Auto (Bld) on 10-30-2023 Monocytes/100 WBC (Bld) 3.7 % 1.7-12.0 [facility] Neutrophils Auto (Bld) [#/Vo l]on 10-30-2023 Neutrophils (Bld) [#/Vol] 4.6 10 3/uL 1.4-6.[address] [facility] Neutrophils/100 WBC Auto (Bl d)on 10-30-2023 Neutrophils/100 WBC (Bld) 63.9 % 43.0-75.[address] [facility] No Panel Informationon 10-29 Eosinophils # (Auto) 0.1 10 3/uL 0.0-0.7 [facility] Immature Granulocyte # (Auto) 0.03 10 3/uL 0.00-0.[address] [facility] Platelet mean volume Auto (B ld) [Entitic vol]on 10-30-2023 Platelet mean volume (Bld) [Entitic vol] 9.4 fL 9.5-13.[address] [facility] Platelets Auto (Bld) [#/Vol] on 10-30-2023 Platelets (Bld) [#/Vol] 264 10 3/uL 150-[address] [facility] RBC Auto (Bld) [#/Vol]on RBC (Bld) [#/Vol] 3.16 10 6/uL 4.20-5.40 [facility] Serum or plasma anion gap de terminationon 10-30-2023 Anion gap [Moles/Vol] 11.2 mmol/L [facility] MR head/brain wo/w conon MR head/brain wo/[place] [address] MRI Report Signed Patient: Ashly Mehta MR#: [id number] 8 : 1990 Acct:[id number] Age/Sex: 33 / F ADM Date: 10/08/23 Loc: MR [facility]: [facility] Att[facility] Dr: Akil Cox DO Copies [...] Ivan Holliday M.D.10/08/2023 4:38 PM Dictation Location: [place] [address] Transcribed By: [facility] 10/08/23 1638 Dictated By: Ivan Holliday II, MD 10/08/23 1630 Signed By: 10/08/23 1638 Normal [facility] HCG ( test) IA.rapi d Ql (U)on 10-06-2023 HCG ( test) Ql (U) Negative NEGATIVE [facility] COVID + FLU Quick Testingon 07-07-2023 SARS-CoV-2 (COVID-19) RNA SURI+probe Ql (Unsp spec) Negative [facility] Other COVID + FLU Quick Testing Negative [facility] Other Alanine aminotransferase [En zymatic activity/volume] in Serum or PlasmaOrdered By: Celio Mullins on 07-03-2023 ALT [Catalytic activity/Vol] 22 U/L Normal 7- [facility] Comment on above: Performed By: #### L IPID, CMP #### [address] Albumin [Mass/volume] in Ser um or Plasma by Bromocresol green (BCG) dye binding methoOrdered By: Celio Mullins on 07-03-2023 Albumin BCG dye [Mass/Vol] 4.4 g/dL 3.5-5.[address] [facility] Alkaline phosphatase [Enzyma tic activity/volume] in Serum or PlasmaOrdered By: Celio Mullins on 07-03-2023 ALP [Catalytic activity/Vol] 68 U/L Normal 34-[address] [facility] Comment on above: Performed By: #### L IPID, CMP #### [facility] [address] [place] [address] [place] Aspartate aminotransferase [ Enzymatic activity/volume] in Serum or PlasmaOrdered By: Celio Mullins on 07-03-2023 AST [Catalytic activity/Vol] 18 U/L Normal 13-[address] [facility] Comment on above: Performed By: #### L IPID, CMP #### [place] [address] [place] Bilirubin.total [Mass/volume ] in Serum or PlasmaOrdered By: Celio Mullins on 07-03-2023 Bilirubin [Mass/Vol] 0.4 mg/dL Normal 0.3-1.0 [facility] Comment on above: Performed By: #### L IPID, CMP #### [place] [address] [place] Calcium [Mass/volume] in Ser um or PlasmaOrdered By: Celio Mullins on 07-03-2023 Calcium [Mass/Vol] 9.4 mg/dL Normal 8.6-10.3 [facility] Comment on above: Performed By: #### L IPID, CMP #### [facility] [address] [place] [address] [place] Carbon dioxide, total [Moles /volume] in Serum or PlasmaOrdered By: Celio Mullins on 07-03-2023 CO2 [Moles/Vol] 30.1 mmol/L Normal 21.0-31.0 [facility] Comment on above: Performed By: #### L IPID, CMP #### [place] [address] [place] Chloride [Moles/volume] in S marta or PlasmaOrdered By: Celio Mullins on 07-03-2023 Chloride [Moles/Vol] 105 mmol/L Normal 98-107 [facility] Comment on above: Performed By: #### L IPID, CMP #### [facility] [address] [place] [address] [place] Cholesterol [Mass/volume] in Serum or PlasmaOrdered By: Celio Mullins on 07-03-2023 Cholesterol [Mass/Vol] 126 mg/dL Low 140-200 [facility] Comment on above: Chol less than 200 m g/dl low riskChol 201-239 mg/dl borderline riskChol 240 mg/dl and greater high risk Result Comment: Chol less than 200 mg/dl low risk Chol 201-239 mg/dl borderline risk Chol 240 mg/dl and greater high risk Performed By: #### L IPID, CMP #### [facility] [address] [place] [address] [place] Cholesterol in LDL Calc [Mas s/Vol]Ordered By: Celio Mullins on 07-03-2023 Cholesterol in LDL [Mass/Vol] 69 mg/dL 0-[address] [facility] Comment on above: LDL ATP III CLASSIFI CATIONLDL less than 100 mg/dL OptimalLDL 100-129 mg/dL Near or above optimalLDL 130-159 mg/dL Borderline highLDL 160-189 mg/dL HighLDL greater than 189 mg/dL Very high Cholesterol in VLDL Calc [Ma ss/Vol]Ordered By: Celio Mullins on 07-03-2023 Cholesterol in VLDL [Mass/Vol] 18 mg/dL [facility] Comprehensive Metabolic Pane landon 07-03-2023 Albumin [Mass/Vol] 4.4 g/dL Normal 3.5-5.7 [facility] Comment on above: Performed By: #### L IPID, CMP #### [facility] [address] [place] [address] [place] GFR/1.73 sq M.predicted MDRD (S/P/Bld) [Vol rate/Area] mL/min/{1.73_m2} Normal [facility] Comment on above: Performed By: #### L IPID, CMP #### [facility] [address] [place] [address] [place] Creatinine [Mass/volume] in Serum or PlasmaOrdered By: Celio Mullins on 07-03-2023 Creatinine [Mass/Vol] 0.63 mg/dL Normal 0.60-1.20 [facility] Comment on above: Performed By: #### L IPID, CMP #### [facility] [address] Glucose [Mass/volume] in Ser um or PlasmaOrdered By: Celio Mullins on 07-03-2023 Glucose [Mass/Vol] 97 mg/dL Normal 70-100 [facility] Comment on above: ADA recommended refe rence rangeRandom Glucose Reference Range is dependent on time and content of last meal. Glucose of more than 200 mg/dL in a nonstressed, ambulatory subject supports the diagnosis of Diabetes Mellitus. Result Comment: [place] om Glucose Reference Range is dependent on time and content of last meal. Glucose of more than 200 mg/dL in a nonstressed, ambulatory subject supports the diagnosis of Diabetes Mellitus. ADA recommended reference range Performed By: #### L IPID, CMP #### [facility] [address] Lipid Panelon 07-03-2023 LDL Cholesterol,Calculated 69 mg/dL Normal 0-100 [facility] Comment on above: Result Comment: LDL ATP III CLASSIFICATION LDL less than 100 mg/dL Optimal LDL 100-129 mg/dL Near or above optimal LDL 130-159 mg/dL Borderline high LDL 160-189 mg/dL High LDL greater than 189 mg/dL Very high Performed By: #### L IPID, CMP #### [facility] [address] Triglyceride w/Reflex 92 mg/dL Normal 0-149 [facility] Comment on above: Result Comment: TRIG ATP III CLASSIFICATION TRIG less than 150 mg/dL Normal TRIG 150-199 mg/dL Borderline high TRIG 200-500 mg/dL High TRIG greater than 500 mg/dL Very high Standard traceable to the Center for Disease Conrtrol and Prevention (CDC) test method. Performed By: #### L IPID, CMP #### [facility] [address] VLDL CHOLESTEROL 18 mg/dL Normal [facility] Comment on above: Performed By: #### L IPID, CMP #### [facility] [address] [place] [address] No Panel InformationOrdered By: Celio Mullins on 07-03-2023 Estimated GFR (CKD-EPI) > 60.0 mL/Min [facility] Creatinine Clearance (Chem N/A [facility] Potassium [Moles/volume] in Serum or PlasmaOrdered By: Celio Mullins on 07-03-2023 Potassium [Moles/Vol] 4.3 mmol/L Normal 3.5-5.1 [facility] Comment on above: Performed By: #### L IPID, CMP #### [address] Protein [Mass/volume] in Ser um or PlasmaOrdered By: Celio Mullins on 07-03-2023 Protein [Mass/Vol] 7.5 g/dL Normal 6.4-8.9 [facility] Comment on above: Performed By: #### L IPID, CMP #### [facility] [address] [place] [address] Serum globulin measurement b y calculation (mass/volume)Ordered By: Celio Mullins on 07-03-2023 Globulin (S) [Mass/Vol] 3.1 g/dL Normal [facility] Comment on above: Performed By: #### L IPID, CMP #### [facility] [address] [place] [address] Serum or plasma albumin/glob ulin mass ratioOrdered By: Celio Mullins on 07-03-2023 Albumin/Globulin [Mass ratio] 1.4 {ratio} Normal [facility] Comment on above: Performed By: #### L IPID, CMP #### [facility] [address] [place] [address] Serum or plasma anion gap de terminationOrdered By: Celio Mullins on 07-03-2023 Anion gap [Moles/Vol] 10.2 mmol/L Normal 6.0-15.0 [facility] Comment on above: Performed By: #### L IPID, CMP #### [facility] [address] [place] [address] Serum or plasma high density lipoprotein (HDL) cholesterol measurementOrdered By: Celio Mullins on 07-03-2023 Cholesterol in HDL [Mass/Vol] 39 mg/dL Normal 23-[address] [facility] Comment on above: HDL CHOL ATP-III CLA SSIFICATION Cardiovascular RiskHDL > or equal to 60 mg/dL LOWHDL < 40 mg/dL HIGH Result Comment: HDL CHOL ATP-III CLASSIFICATION Cardiovascular Risk HDL > or equal to 60 mg/dL LOW HDL < 40 mg/dL HIGH Performed By: #### L IPID, CMP #### [facility] [address] Serum or plasma total choles terol/high density lipoprotein (HDL) cholesterol mass ratOrdered By: Celio Mullins on 07-03-2023 Cholesterol.total/Mali sterol in HDL [Mass ratio] 3.2 {ratio} Normal <5.[address] [facility] Comment on above: Result Comment: PERF ORMED BY: [place] [address] PATHOLOGIST TRUCKER HAND NESHA MAIER M.D. Performed By: #### L IPID, CMP #### [facility] [address] Sodium [Moles/volume] in Ser um or PlasmaOrdered By: Celio Mullins on 07-03-2023 Sodium [Moles/Vol] 141 mmol/L Normal 136-145 [facility] Comment on above: Performed By: #### L IPID, CMP #### [facility] [address] Triglyceride [Mass/volume] i n Serum or PlasmaOrdered By: Celio Mullins on 07-03-2023 Triglyceride [Mass/Vol] 92 mg/dL 0-149 [facility] Comment on above: TRIG ATP III CLASSIF ICATIONTRIG less than 150 mg/dL NormalTRIG 150-199 mg/dL Borderline highTRIG 200-500 mg/dL High TRIG greater than 500 mg/dL Very highStandard traceable to the Center for Disease Conrtrol and Prevention (CDC) test method. Urea nitrogen [Mass/volume] in Serum or PlasmaOrdered By: Celio Mullins on 07-03-2023 Urea nitrogen [Mass/Vol] 13 mg/dL Normal 7-[address] [facility] Comment on above: Performed By: #### L IPID, CMP #### [facility] [address] [place] [address] [place] A1C with Estimated Average G gee 07-01-2023 Glucose [Mass/Vol] 117 mg/dL Normal [facility] Comment on above: Order Comment: Reaso n for Exam Severe obesity (BMI >= 40);PCOS (polycystic ovarian syndrome Result Comment: PERF ORMED BY: [place] [address] PATHOLOGIST TRUCKER HAND NESHA MAIER M.D. Performed By: #### A POB, LIPA #### [facility] , #### CMP, A1C WT eA #### [facility] [address] [place] [address] Alanine aminotransferase [En zymatic activity/volume] in Serum or PlasmaOrdered By: Celio Mullins on 07-01-2023 ALT [Catalytic activity/Vol] 21 U/L Normal 7-[address] [facility] Comment on above: Order Comment: Reaso n for Exam Severe obesity (BMI >= 40);PCOS (polycystic ovarian syndrome NON FASTING Performed By: #### A POB, LIPA #### [facility] , #### CMP, A1C WT eA #### [place] [address] [place] Albumin [Mass/volume] in Ser um or Plasma by Bromocresol green (BCG) dye binding methoOrdered By: Celio Mullins on 07-01-2023 Albumin BCG dye [Mass/Vol] 4.6 g/dL 3.5-5.[address] [facility] Alkaline phosphatase [Enzyma tic activity/volume] in Serum or PlasmaOrdered By: Celio Mullins on 07-01-2023 ALP [Catalytic activity/Vol] 72 U/L Normal 34-[address] [facility] Comment on above: Order Comment: Reaso n for Exam Severe obesity (BMI >= 40);PCOS (polycystic ovarian syndrome NON FASTING Result Comment: PERF ORMED BY: [place] [id number] PATHOLOGIST TRUCKER HAND NESHA MAIER M.D. Performed By: #### A POB, LIPA #### [facility] , #### CMP, A1C WTH eA #### [facility] [address] [place] [id number] [facility] Apolipoprotein B [Mass/volum e] in Serum or PlasmaOrdered By: Celio Mullins on 07-01-2023 Apolipoprotein B [Mass/Vol] 83 mg/dL Normal <[address] [facility] Comment on above: Desirable < 90 Borde rline High 90 - 99 High 100 - 130 Very High >130 ASCVD RISK THERAPEUTIC TARGET CATEGORY APO B (mg/dL) Very High Risk <80 (if extreme risk <70) High Risk <90 Moderate Risk <90Performed at: [facility] [address] [id number] Director: Jeanna Case MD, Phone: [phone] Order Comment: Reaso n for Exam Severe obesity (BMI >= 40);PCOS (polycystic ovarian syndrome Result Comment: Hedy rable < 90 Borderline High 90 - 99 High 100 - 130 Very High >130 ASCVD RISK THERAPEUTIC TARGET CATEGORY APO B (mg/dL) Very High Risk <80 (if extreme risk <70) High Risk <90 Moderate Risk <90 Performed at: [facility] [id number] Photo Colorer: Jeanna Case MD, Phone: [phone] PERFORMED BY: [facility] [address] [place] [id number] PATHOLOGIST TRUCKER HAND NESHA MAIER M.D. Performed By: #### A POB, LIPA #### [facility] , #### CMP, A1C WTH eA #### [facility] [address] [place] [address] [place] Aspartate aminotransferase [ Enzymatic activity/volume] in Serum or PlasmaOrdered By: Celio Mullins on 07-01-2023 AST [Catalytic activity/Vol] 19 U/L Normal 13-[address] [facility] Comment on above: Order Comment: Reaso n for Exam Severe obesity (BMI >= 40);PCOS (polycystic ovarian syndrome NON FASTING Performed By: #### A POB, LIPA #### [facility] , #### CMP, A1C WTH eA #### [facility] [address] Bilirubin.total [Mass/volume ] in Serum or PlasmaOrdered By: Celio Mullins on 07-01-2023 Bilirubin [Mass/Vol] 0.4 mg/dL Normal 0.3-1.0 [facility] Comment on above: Order Comment: Reaso n for Exam Severe obesity (BMI >= 40);PCOS (polycystic ovarian syndrome NON FASTING Performed By: #### A POB, LIPA #### [facility] , #### CMP, A1C WT eA #### [facility] [address] Calcium [Mass/volume] in Ser um or PlasmaOrdered By: Celio Mullins on 07-01-2023 Calcium [Mass/Vol] 9.8 mg/dL Normal 8.6-10.3 [facility] Comment on above: Order Comment: Reaso n for Exam Severe obesity (BMI >= 40);PCOS (polycystic ovarian syndrome NON FASTING Performed By: #### A POB, LIPA #### [facility] , #### CMP, A1C WTH eA #### [facility] [address] [place] [address] [place] Carbon dioxide, total [Moles /volume] in Serum or PlasmaOrdered By: Celio Mullins on 07-01-2023 CO2 [Moles/Vol] 25.3 mmol/L Normal 21.0-31.0 [facility] Comment on above: Order Comment: Reaso n for Exam Severe obesity (BMI >= 40);PCOS (polycystic ovarian syndrome NON FASTING Performed By: #### A POB, LIPA #### [facility] , #### CMP, A1C WTH eA #### [facility] [address] Chloride [Moles/volume] in S marta or PlasmaOrdered By: Celio Mullins on 07-01-2023 Chloride [Moles/Vol] 105 mmol/L Normal 98-107 [facility] Comment on above: Order Comment: Reaso n for Exam Severe obesity (BMI >= 40);PCOS (polycystic ovarian syndrome NON FASTING Performed By: #### A POB, LIPA #### [facility] , #### CMP, A1C WT eA #### [address] Comprehensive Metabolic Pane landon 07-01-2023 Albumin [Mass/Vol] 4.6 g/dL Normal 3.5-5.7 [facility] Comment on above: Order Comment: Reaso n for Exam Severe obesity (BMI >= 40);PCOS (polycystic ovarian syndrome NON FASTING Performed By: #### A POB, LIPA #### [facility] , #### CMP, A1C WTH eA #### [place] [address] [place] GFR/1.73 sq M.predicted MDRD (S/P/Bld) [Vol rate/Area] mL/min/{1.73_m2} Normal [facility] Comment on above: Order Comment: Reaso n for Exam Severe obesity (BMI >= 40);PCOS (polycystic ovarian syndrome NON FASTING Performed By: #### A POB, LIPA #### [facility] , #### CMP, A1C WTH eA #### [place] [address] [place] Creatinine [Mass/volume] in Serum or PlasmaOrdered By: Celio Mullins on 07-01-2023 Creatinine [Mass/Vol] 0.64 mg/dL Normal 0.60-1.20 [facility] Comment on above: Order Comment: Reaso n for Exam Severe obesity (BMI >= 40);PCOS (polycystic ovarian syndrome NON FASTING Performed By: #### A POB, LIPA #### [facility] , #### CMP, A1C WTH eA #### [facility] [address] [place] [address] [place] Glucose [Mass/volume] in Ser um or PlasmaOrdered By: Celio Mullins on 07-01-2023 Glucose [Mass/Vol] 95 mg/dL Normal 70-100 [facility] Comment on above: ADA recommended refe rence rangeRandom Glucose Reference Range is dependent on time and content of last meal. Glucose of more than 200 mg/dL in a nonstressed, ambulatory subject supports the diagnosis of Diabetes Mellitus. Order Comment: Reaso n for Exam Severe obesity (BMI >= 40);PCOS (polycystic ovarian syndrome NON FASTING Result Comment: [place] om Glucose Reference Range is dependent on time and content of last meal. Glucose of more than 200 mg/dL in a nonstressed, ambulatory subject supports the diagnosis of Diabetes Mellitus. ADA recommended reference range Performed By: #### A POB, LIPA #### [facility] , #### CMP, A1C WTH eA #### [facility] [address] [place] [address] [place] Glucose mean value [Mass/vol ume] in Blood Estimated from glycated hemoglobinOrdered By: Celio Mullins on 07-01-2023 Average glucose Estimated from glycated hemoglobin (Bld) [Mass/Vol] 117 mg/dL [facility] Hemoglobin A1c percentageOrd ered By: Celio Mullins on 07-01-2023 HbA1c (Bld) [Mass fraction] 5.7 % High 4.3-5.[address] [facility] Comment on above: Increased risk for [...] CMP, A1C WTH eA #### [facility] [address] [place] [address] [place] Lipoprotein (a)on 07-01-2023 Lipoprotein a [Mass/Vol] 13.0 mg/dL Normal <75.0 [facility] Comment on above: Order [...] factors on Lp(a) across ethnicities. Performed at: [facility] [id number] Photo Colorer: Cassius Zhong PhD, Phone: [phone] Performed By: #### A POB, LIPA #### [facility] , #### CMP, A1C WT eA #### [facility] [address] [place] [address] No Panel InformationOrdered By: Celio Mullins on 07-01-2023 Estimated GFR (CKD-EPI) > 60.0 mL/Min [facility] Creatinine Clearance (Chem N/A [facility] Potassium [Moles/volume] in Serum or PlasmaOrdered By: Celio Mullins on 07-01-2023 Potassium [Moles/Vol] 3.8 mmol/L Normal 3.5-5.1 [facility] Comment on above: Order Comment: Reaso n for Exam Severe obesity (BMI >= 40);PCOS (polycystic ovarian syndrome NON FASTING Performed By: #### A POB, LIPA #### [facility] , #### CMP, A1C WTH eA #### [facility] [address] [place] [address] [place] Protein [Mass/volume] in Ser um or PlasmaOrdered By: Celio Mullins on 07-01-2023 Protein [Mass/Vol] 7.8 g/dL Normal 6.4-8.9 [facility] Comment on above: Order Comment: Reaso n for Exam Severe obesity (BMI >= 40);PCOS (polycystic ovarian syndrome NON FASTING Performed By: #### A POB, LIPA #### [facility] , #### CMP, A1C WTH eA #### [address] Serum globulin measurement b y calculation (mass/volume)Ordered By: Celio Mullins on 07-01-2023 Globulin (S) [Mass/Vol] 3.2 g/dL Normal [facility] Comment on above: Order Comment: Reaso n for Exam Severe obesity (BMI >= 40);PCOS (polycystic ovarian syndrome NON FASTING Performed By: #### A POB, LIPA #### [facility] , #### CMP, A1C WTH eA #### [address] Serum or plasma albumin/glob ulin mass ratioOrdered By: Celio Mullins on 07-01-2023 Albumin/Globulin [Mass ratio] 1.4 {ratio} Normal [facility] Comment on above: Order Comment: Reaso n for Exam Severe obesity (BMI >= 40);PCOS (polycystic ovarian syndrome NON FASTING Performed By: #### A POB, LIPA #### [facility] , #### CMP, A1C WTH eA #### [address] Serum or plasma anion gap de terminationOrdered By: Celio Mullins on 07-01-2023 Anion gap [Moles/Vol] 11.5 mmol/L Normal 6.0-15.0 [facility] Comment on above: Order Comment: Reaso n for Exam Severe obesity (BMI >= 40);PCOS (polycystic ovarian syndrome NON FASTING Performed By: #### A POB, LIPA #### [facility] , #### CMP, A1C WTH eA #### [facility] [address] Serum or plasma lipoprotein a measurement (moles/volume)Ordered By: Celio Mullins on 07-01-2023 Lipoprotein a [Moles/Vol] 13.0 nmol/L <75.[address] [facility] Comment on above: Note: Values greater than or equal to 75.0 nmol/L may indicate an independent risk factor for CHD, but must be evaluated with caution when applied to non- populations due to the influence of genetic factors on Lp(a) across ethnicities.Performed at: - [facility] [address] [id number] Director: Cassius Zhong PhD, Phone: [phone] Sodium [Moles/volume] in Ser um or PlasmaOrdered By: Celio Mullins on 07-01-2023 Sodium [Moles/Vol] 138 mmol/L Normal 136-145 [facility] Comment on above: Order Comment: Reaso n for Exam Severe obesity (BMI >= 40);PCOS (polycystic ovarian syndrome NON FASTING Performed By: #### A POB, LIPA #### [facility] , #### CMP, A1C [facility] eA #### [address] Urea nitrogen [Mass/volume] in Serum or PlasmaOrdered By: Celio Mullins on 07-01-2023 Urea nitrogen [Mass/Vol] 16 mg/dL Normal 7-[address] [facility] Comment on above: Order Comment: Reaso n for Exam Severe obesity (BMI >= 40);PCOS (polycystic ovarian syndrome NON FASTING Performed By: #### A POB, LIPA #### [facility] , #### CMP, A1C [facility] eA #### [place] [address] [place] COVID Quick Testingon 2022 Result Negative [facility] Other SARS-CoV-2 (COVID-19) RNA NA A+probe Ql (Resp)on 02-11-2023 SARS-CoV-2 (COVID-19) RNA SURI+probe Ql (Unsp spec) Negative [facility] Other DHEA-SULFATEon 01-01-2023 DHEA-Sulfate 95.3 ug/dL Normal 84.8-378.0 [facility] Comment on above: Performed By: #### D RIMA #### [facility] [address] [place] [address] Dr. Kasuhik Palomares FSHon 01-01-2023 FSH 4.6 mIU/mL Normal [facility] Comment on above: Result Comment: Adul t Female: Follicular phase 3.5 - 12.5 Ovulation phase 4.7 - 21.5 Luteal phase 1.7 - 7.7 Postmenopausal 25.8 - 134.8 Performed By: #### C BC #### [facility] [address] [place] [address] Dr. Kaushik Palomares LUTEINIZING HORMONE (LH)on 0 01-01-2023 LH 3.5 mIU/mL Normal [facility] Comment on above: Result Comment: Adul t Female: Follicular phase 2.4 - 12.6 Ovulation phase 14.0 - 95.6 Luteal phase 1.0 - 11.4 Postmenopausal 7.7 - 58.5 Performed By: #### L BCL #### [facility] [address] [place] [address] Dr. Kaushik Palomares CBC AUTO DIFFon 12-31-2022 BASO # 0.1 103/ul Normal 0.0-0.1 [facility] Comment on above: Performed By: #### C BC #### [facility] [address] [place] [address] Dr. Kaushik Palomares Basophils/100 WBC (Bld) 0.8 % Normal 0.2-2.0 [facility] Comment on above: Performed By: #### C BC #### [facility] [address] [place] [address] Dr. Kaushik Palomares EO # 0.1 103/ul Normal 0.0-0.7 [facility] Comment on above: Performed By: #### C BC #### [facility] [address] [place] [address] Dr. Kaushik Palomares Eosinophils/100 WBC (Bld) 1.7 % Normal 0.9-7.0 [facility] Comment on above: Performed By: #### C BC #### [facility] [address] [place] [address] Dr. Kaushik Palomares Erythrocyte distribution width (RBC) [Ratio] 12.8 % Normal 11.0-15.0 [facility] Comment on above: Performed By: #### C BC #### [facility] [address] [place] [address] Dr. Kaushik Palomares Hematocrit (Bld) [Volume fraction] 33.0 % Critically low 36.0-48.0 [facility] Comment on above: Performed By: #### C BC #### [facility] [address] [place] [address] Dr. Kaushik Palomares Hemoglobin (Bld) [Mass/Vol] 11.0 g/dL Critically low 12.0-16.0 [facility] Comment on above: Performed By: #### C BC #### [facility] [address] [place] [address] Dr. Kaushik Palomares IG # 0.03 10e3/ul Normal 0.00-0.03 [facility] Comment on above: Performed By: #### C BC #### [facility] [address] [place] [address] Dr. Kaushik Palomares IG % 0.5 % Normal 0.0-0.5 [facility] Comment on above: Performed By: #### C BC #### [facility] [address] [place] [address] Dr. Kaushik Palomares LYMPH # 2.4 103/ul Normal 1.2-3.8 [facility] Comment on above: Performed By: #### C BC #### [facility] [address] [place] [address] Dr. Kaushik Palomares Lymphocytes/100 WBC (Bld) 36.6 % Normal 20.5-60.0 [facility] Comment on above: Performed By: #### C BC #### [facility] [address] [place] [address] Dr. Kaushik Palomares MANUAL DIFF REQ NO Normal [facility] Comment on above: Performed By: #### C BC #### [facility] [address] [place] [address] Dr. Kaushik Palomares MCH (RBC) [Entitic mass] 29.0 pg Normal 26.7-34.0 [facility] Comment on above: Performed By: #### C BC #### [facility] [address] [place] [address] Dr. Kaushik Palomares MCHC (RBC) [Mass/Vol] 33.3 g/dL Normal 29.9-35.2 [facility] Comment on above: Performed By: #### C BC #### [facility] [address] [place] [address] Dr. Kasuhik Palomares MCV (RBC) [Entitic vol] 87.1 fL Normal 81.0-99.0 [facility] Comment on above: Performed By: #### C BC #### [facility] [address] [place] [address] Dr. Kaushik Palomares MONO # 0.2 103/ul Critically low 0.3-0.8 [facility] Comment on above: Performed By: #### C BC #### [facility] [address] [place] [address] Dr. Kaushik Palomares Monocytes/100 WBC (Bld) 3.6 % Normal 1.7-12.0 [facility] Comment on above: Performed By: #### C BC #### [facility] Laboratory [address] [place] [address] Dr. Kaushik Palomares NEUT # 3.7 103/ul Normal 1.4-6.5 [facility] Comment on above: Performed By: #### C BC #### [facility] Laboratory [address] [place] [address] Dr. Kaushik Palomares Neutrophils/100 WBC (Bld) 56.8 % Normal 43.0-75.0 [facility] Comment on above: Performed By: #### C BC #### [facility] Laboratory [address] [place] [address] Dr. Kaushik Palomares Platelet mean volume (Bld) [Entitic vol] 9.8 fL Normal 9.5-13.5 [facility] Comment on above: Performed By: #### C BC #### [facility] Laboratory [address] [place] [address] Dr. Kaushik Palomares PLT 234 103/ul Normal 150-450 [facility] Comment on above: Performed By: #### C BC #### [facility] Laboratory [address] [address] [address] Kaushik Palomares RBC 3.79 106/ul Critically low 4.20-5.40 [facility] Comment on above: Performed By: #### C BC #### [facility] Laboratory [address] [place] [address] Dr. Kaushik Palomares WBC 6.5 103/ul Normal 4.0-11.0 [facility] Comment on above: Performed By: #### C BC #### [facility] Laboratory [address] [place] [address] Dr. Kaushik Palomares FREE T4on 12-31-2022 Free T4 [Mass/Vol] 0.79 ng/dL Normal 0.76-1.[address] [facility] Comment on above: Performed By: #### F T4 #### [facility] Laboratory [address] [place] [address] Dr. Kaushik Palomares GLYCOHEMOGLOBIN A1Con 2022 ADA RECOMMENDATION SEE BELOW Normal [facility] Comment on above: Result Comment: ADA RECOMMENDED LIMIT 4.0 - 6.0 ADA THERAPEUTIC TARGET < 7.0 ACTION SUGGESTED > 7.0 Performed By: #### A 1C #### [facility] Laboratory [address] [place] [address] Dr. Kaushik Palomares Glucose [Mass/Vol] 111 mg/dL Normal [facility] Comment on above: Performed By: #### A 1C #### [facility] Laboratory [address] [place] [address] Dr. Kaushik Palomares HbA1c (Bld) [Mass fraction] 5.5 % Normal 4.5-6.2 [facility] Comment on above: Performed By: #### A 1C #### [facility] Laboratory [address] [place] [address] Dr. Kaushik Palomares TSHon 12-31-2022 TSH 1.114 uIU/mL Normal 0.358-3.740 [facility] Comment on above: Performed By: #### C #### [facility] Laboratory [address] [address] [address] Kaushik Palomares US PELVIS AND TRANSVAGon [...] SUGEY MACDONALD Date: 2022-11-26 15:58 Normal [facility] XR SACRUM_COCCYXon 3 XR SACRUM_COCCYX EXAMINATION: XR [...] authenticated by: SUGEY MACDONALD Date: 2022-11-08 10:01 [facility] PAP ACOG PANEL 2: 30 to 65on 11-05-2022 . . Normal [facility] Comment on above: Result Comment: Perf ormed at: WB Performed By: #### C BC #### [facility] Laboratory [address] [address] [address] Kaushik Palomares Age Gdln ACOG Testing 30-65 Normal [facility] Comment on above: Performed By: #### C BC #### [facility] Laboratory [address] [address] [address] Kaushik Palomares DIAGNOSIS: Comment [facility] Comment on above: Result Comment: NEGA TIVE FOR INTRAEPITHELIAL LESION OR MALIGNANCY. Performed at: WB Performed By: #### C BC #### [facility] Laboratory [address] [address] [address] Kaushik Palomares HPV Aptima Negative Normal Negative [facility] Comment on above: Result Comment: This nucleic acid amplification test detects fourteen high-risk HPV types (16,18,31,33,35,39,45,51,52,56,58,59,66,68) without differentiation. Performed at: =G Performed By: #### C BC #### [facility] Laboratory [address] [address] [address] Kaushik Palomares HPV Genotype Reflex Comment Normal [facility] Comment on above: Result Comment: Crit eria not met, HPV Genotype not performed. Performed at: WB Performed By: #### C BC #### [facility] Laboratory [address] [address] [address] Kaushik Palomares Methodology: Comment Normal [facility] Comment on above: Result Comment: This liquid based ThinPrep(R) pap test was screened with the use of an image guided system. Performed at: WB Performed By: #### C BC #### [facility] Laboratory [address] [place] [address] Dr. Kaushik Palomares Note: Comment Normal [facility] Comment on above: Result Comment: The Pap smear is a screening test designed to aid in the detection of premalignant and malignant conditions of the uterine cervix. It is not a diagnostic procedure and should not be used as the sole means of detecting cervical cancer. Both false-positive and false-negative reports do occur. . Performed at: WB Performed By: #### C BC #### [facility] Laboratory [address] [place] [address] Dr. Kaushik Palomares Performed by: Comment Normal [facility] Comment on above: Result Comment: Robi Graham, Medical Claims Analyst (ASCP) Performed at: WB Performed By: #### C BC #### [facility] Laboratory [address] [place] [address] Dr. Kaushik Palomares Specimen adequacy: Comment Normal [facility] Comment on above: Result Comment: Sati sfactory for evaluation. Endocervical and/or squamous metaplastic cells (endocervical component) are present. Performed at: WB Performed By: #### C BC #### [facility] Laboratory [address] [place] [address] Dr. Kaushik Palomares COVID/FLU RT-PCRon 2 SARS-CoV-2 (COVID-19) RNA SURI+probe Ql (Unsp spec) Negative [employer] Other COVID/FLU RT-PCR Negative [employer] Other HCG-BETA SUBUNIT QUANTon hCG,Beta Subunit,Qnt,Serum <1 Normal [facility] Comment on above: Result Comment: Fema le (Non-) 0 - 5 (Postmenopausal) 0 - 8 . Female () Weeks of Gestation 3 6 - 71 4 10 - 750 5 217 - 7138 6 158 - [phone] 7 [phone] 8 [phone] -[phone] 9 [phone] 10 40168 -[phone] 12 66670 -[phone] 14 98293 - 86571 15 58908 - 44200 16 0306 - 98998 17 5993 - 65529 18 3404 - [phone] Rg ECLIA methodology Performed By: #### H CGSUB #### [facility] Laboratory [address] [place] [address] Dr. Kaushik Palomares T4 LABCORPon 01-22-2022 T4 [Mass/Vol] 7.8 ug/dL Normal 4.5-12.0 [facility] Comment on above: Performed By: #### T 4LC #### [facility] Laboratory [address] [place] [address] Dr. Kaushik Palomares CBC AUTO DIFFon 01-21-2022 BASO # 0.1 103/ul Normal 0.0-0.1 [facility] Comment on above: Performed By: #### C BC #### [facility] [address] [place] [address] Dr. Kaushik Palomares Basophils/100 WBC (Bld) 0.6 % Normal 0.2-2.0 [facility] Comment on above: Performed By: #### C BC #### [facility] [address] [place] [address] Dr. Kaushik Palomares EO # 0.1 103/ul Normal 0.0-0.7 [facility] Comment on above: Performed By: #### C BC #### [facility] [address] [place] [address] Dr. Kaushik Palomares Eosinophils/100 WBC (Bld) 1.2 % Normal 0.9-7.0 [facility] Comment on above: Performed By: #### C BC #### [facility] [address] [place] [address] Dr. Kaushik Palomares Erythrocyte distribution width (RBC) [Ratio] 13.3 % Normal 11.0-15.0 [facility] Comment on above: Performed By: #### C BC #### [facility] [address] [place] [address] Dr. Kaushik Palomares Hematocrit (Bld) [Volume fraction] 40.0 % Normal 36.0-48.0 [facility] Comment on above: Performed By: #### C BC #### [facility] [address] [place] [address] Dr. Kaushik Palomares Hemoglobin (Bld) [Mass/Vol] 12.7 g/dL Normal 12.0-16.0 [facility] Comment on above: Performed By: #### C BC #### [facility] [address] [place] [address] Dr. Kaushik Palomares IG # 0.02 10e3/ul Normal 0.00-0.03 [facility] Comment on above: Performed By: #### C BC #### [facility] [address] [place] [address] Dr. Kaushik Palomares IG % 0.2 % Normal 0.0-0.5 [facility] Comment on above: Performed By: #### C BC #### [facility] [address] [place] [address] Dr. Kaushik Palomares LYMPH # 3.0 103/ul Normal 1.2-3.8 [facility] Comment on above: Performed By: #### C BC #### [facility] [address] [place] [address] Dr. Kaushik Palomares Lymphocytes/100 WBC (Bld) 32.9 % Normal 20.5-60.0 [facility] Comment on above: Performed By: #### C BC #### [facility] [address] [place] [address] Dr. Kaushik Palomares MANUAL DIFF REQ NO Normal [facility] Comment on above: Performed By: #### C BC #### [facility] [address] [place] [address] Dr. Kaushik Palomares MCH (RBC) [Entitic mass] 28.5 pg Normal 26.7-34.0 [facility] Comment on above: Performed By: #### C BC #### [facility] [address] [place] [address] Dr. Kaushik Palomares MCHC (RBC) [Mass/Vol] 31.8 g/dL Normal 29.9-35.2 [facility] Comment on above: Performed By: #### C BC #### [facility] [address] [place] [address] Dr. Kaushik Palomares MCV (RBC) [Entitic vol] 89.7 fL Normal 81.0-99.0 [facility] Comment on above: Performed By: #### C BC #### [facility] [address] [place] [address] Dr. Kaushik Palomares MONO # 0.5 103/ul Normal 0.3-0.8 [facility] Comment on above: Performed By: #### C BC #### [facility] [address] [place] [address] Dr. Kaushik Palomares Monocytes/100 WBC (Bld) 5.1 % Normal 1.7-12.0 [facility] Comment on above: Performed By: #### C BC #### [facility] Laboratory [address] [place] [address] Dr. Kaushik Palomares NEUT # 5.4 103/ul Normal 1.4-6.5 [facility] Comment on above: Performed By: #### C BC #### [facility] [address] [place] [address] Dr. Kaushik Palomares Neutrophils/100 WBC (Bld) 60.0 % Normal 43.0-75.0 [facility] Comment on above: Performed By: #### C BC #### [facility] [address] [place] [address] Dr. Kaushik Palomares Platelet mean volume (Bld) [Entitic vol] 9.3 fL Critically low 9.5-13.5 [facility] Comment on above: Performed By: #### C BC #### [facility] [address] [place] [address] Dr. Kaushik Palomares PLT 221 103/ul Normal 150-450 [facility] Comment on above: Performed By: #### C BC #### [facility] [address] [place] [address] Dr. Kaushik Palomares RBC 4.46 106/ul Normal 4.20-5.40 [facility] Comment on above: Performed By: #### C BC #### [facility] [address] [place] [address] Dr. Kaushik Palomares WBC 9.0 103/ul Normal 4.0-11.0 [facility] Comment on above: Performed By: #### C BC #### [facility] [address] [place] [address] Dr. Kaushik Palomares GLYCOHEMOGLOBIN A1Con 2021 ADA RECOMMENDATION SEE BELOW Normal [facility] Comment on above: Result Comment: ADA RECOMMENDED LIMIT 4.0 - 6.0 ADA THERAPEUTIC TARGET < 7.0 ACTION SUGGESTED > 7.0 Performed By: #### C BC #### [facility] [address] [address] [address] Kaushik Palomares Glucose [Mass/Vol] 94 mg/dL Normal [facility] Comment on above: Performed By: #### C BC #### [facility] [address] [address] [address] Kaushik Palomares HbA1c (Bld) [Mass fraction] 4.9 % Normal 4.5-6.2 [facility] Comment on above: Performed By: #### C BC #### [facility] [address] [address] [address] Kaushik Palomares LIPID PROFILEon 01-21-2022 CHOL-HDL RATIO NORM SEE BELOW Normal [facility] Comment on above: Result Comment: 3.3 - 4.4 LOW RISK 4.4 - 7.1 AVERAGE RISK 7.1 - 11.0 MODERATE RISK >11.0 HIGH RISK Performed By: #### L IPID, CMP, TSH #### [facility] [address] [address] [address] Kaushik Palomares Cholesterol [Mass/Vol] 168 mg/dL Normal <=[address] [facility] Comment on above: Performed By: #### L IPID, CMP, TSH #### [facility] [address] [address] [address] Kaushik Palomares Cholesterol in HDL [Mass/Vol] 41 mg/dL Normal 40-60 [facility] Comment on above: Performed By: #### L IPID, CMP, TSH #### [facility] [address] [address] [address] Kaushik Palomares Cholesterol in LDL [Mass/Vol] 90.2 mg/dL Normal [facility] Comment on above: Performed By: #### L IPID, CMP, TSH #### [facility] [address] [address] [address] Kaushik Palomares Cholesterol.total/Mali sterol in HDL [Mass ratio] 4.1 {ratio} Normal [facility] Comment on above: Performed By: #### L IPID, CMP, TSH #### [facility] [address] [address] [address] Kaushik Palomares HDL NORMAL > or = 60 mg/dl - LO W CARDIOVASCULAR RISK <40 mg/dl - HIGH CARDIOVASCULAR RISK Normal [facility] Comment on above: Performed By: #### L IPID, CMP, TSH #### [facility] [address] [address] [address] Kaushik Palomares LDL CALC NORMAL SEE BELOW Normal [facility] Comment on above: Result Comment: <100 mg/dl OPTIMAL 100 - 129 mg/dl NEAR OR ABOVE OPTIMAL 130 - 159 mg/dl BORDERLINE HIGH 160 - 189 mg/dl HIGH >190 mg/dl VERY HIGH Performed By: #### L IPID, CMP, TSH #### [facility] [address] [address] [address] Kaushik Palomares Triglyceride [Mass/Vol] 184 mg/dL Critically high <=150 [facility] Comment on above: Performed By: #### L IPID, CMP, TSH #### [facility] [address] [address] [address] Kaushik Palomares VLDL CALC 36.8 mg/dL Normal [facility] Comment on above: Performed By: #### L IPID, CMP, TSH #### [facility] [address] [address] [address] Kaushik Palomares MICROALBUMIN, RAND URon 06-0 mALB 2.0 mg/L Normal <=30.0 [facility] Comment on above: Performed By: #### C BC #### [facility] [address] [address] [address] Kaushik Palomares PROF 14(COMP METB)on 022 Albumin [Mass/Vol] 3.7 g/dL Normal 3.4-5.[address] [facility] Comment on above: Performed By: #### L IPID, CMP, TSH #### [facility] [address] [address] [address] Kaushik Palomares Albumin/Globulin [Mass ratio] 0.9 {ratio} Normal [facility] Comment on above: Performed By: #### L IPID, CMP, TSH #### [facility] [address] [address] [address] Kaushik Palomares ALP [Catalytic activity/Vol] 53 U/L Normal 46-116 [facility] Comment on above: Performed By: #### L IPID, CMP, TSH #### [facility] [address] [address] [address] Kaushik Palomares ALT [Catalytic activity/Vol] 44 U/L Normal 14-59 [facility] Comment on above: Performed By: #### L IPID, CMP, TSH #### [facility] [address] [address] [address] Kaushik Palomares Anion gap [Moles/Vol] 6.8 mmol/L Normal [facility] Comment on above: Performed By: #### L IPID, CMP, TSH #### [facility] [address] [place] [address] Dr. Kaushik Palomares AST [Catalytic activity/Vol] 22 U/L Normal 15-37 [facility] Comment on above: Performed By: #### L IPID, CMP, TSH #### [facility] [address] [place] [address] Dr. Kaushik Palomares Bilirubin [Mass/Vol] 0.3 mg/dL Normal 0.2-1.0 [facility] Comment on above: Performed By: #### L IPID, CMP, TSH #### [facility] [address] [place] [address] Dr. Kaushik Palomares Calcium [Mass/Vol] 9.2 mg/dL Normal 8.5-10.[address] [facility] Comment on above: Performed By: #### L IPID, CMP, TSH #### [facility] [address] [place] [address] Dr. Kaushik Palomares Chloride [Moles/Vol] 102 mmol/L Normal 98-107 [facility] Comment on above: Performed By: #### L IPID, CMP, TSH #### [facility] [address] [place] [address] Dr. Kaushik Palomares CO2 [Moles/Vol] 31.4 mmol/L Normal 21.0-32.0 [facility] Comment on above: Performed By: #### L IPID, CMP, TSH #### [facility] [address] [address] [address] Kaushik Palomares Creatinine [Mass/Vol] 0.71 mg/dL Normal 0.55-1.02 [facility] Comment on above: Performed By: #### L IPID, CMP, TSH #### [facility] [address] [address] [address] Kaushik Palomares EGFR-AF MACANESE >60 Normal >=60 [facility] Comment on above: Performed By: #### L IPID, CMP, TSH #### [facility] [address] [address] [address] Kaushik Palomraes EGFR-NON AF MACANESE >60 Normal >=60 [facility] Comment on above: Performed By: #### L IPID, CMP, TSH #### [facility] [address] [address] [address] Kaushik Palomares Globulin (S) [Mass/Vol] 4.2 g/dL Normal [facility] Comment on above: Performed By: #### L IPID, CMP, TSH #### [facility] [address] [address] [address] Kaushik Palomares Glucose [Mass/Vol] 93 mg/dL Normal 74-[address] [facility] Comment on above: Performed By: #### L IPID, CMP, TSH #### [facility] [address] [address] [address] Kaushik Palomares Potassium [Moles/Vol] 4.2 mmol/L Normal 3.5-5.1 [facility] Comment on above: Performed By: #### L IPID, CMP, TSH #### [facility] [address] [address] [address] Kaushik Palomares Protein [Mass/Vol] 7.9 g/dL Normal 6.4-8.[address] [facility] Comment on above: Performed By: #### L IPID, CMP, TSH #### [facility] [address] [address] [address] Kaushik Palomares Sodium [Moles/Vol] 136 mmol/L Normal 136-[address] [facility] Comment on above: Performed By: #### L IPID, CMP, TSH #### [facility] [address] [address] [address] Kaushik Palomares Urea nitrogen [Mass/Vol] 11.0 mg/dL Normal 7.0-18.0 [facility] Comment on above: Performed By: #### L IPID, CMP, TSH #### [facility] [address] [address] [address] Kaushik Palomares Urea nitrogen/Creatinine [Mass ratio] 15.5 mg/mg Normal [facility] Comment on above: Performed By: #### L IPID, CMP, TSH #### [facility] [address] [place] [address] Dr. Kaushik Palomares TSHon 01-21-2022 TSH 1.298 uIU/mL Normal 0.358-3.740 [facility] Comment on above: Performed By: #### C BC #### [facility] [address] [place] [address] Dr. Kaushik Palomares TSH RANGE SEE BELOW Normal [facility] Comment on above: Result Comment: <0.3 4 UIU/ml HYPERTHYROID 0.34-5.60 UIU/ml EUTHYROID >5.60 UIU/ml HYPOTHYROID Performed By: #### C BC #### [facility] [address] [place] [address] Dr. Kaushik Palomares COVID Quick Testingon 2020 Result Negative [employer] Other Quick Strepon 06-17-2021 S. pyogenes Org specific cx Ql (Throat) Negative [employer] Other Quick Strep [employer] Other Urinalysis - AUTOMATEDon Appearance (U) cloudy [employer] Other Bilirubin Ql (U) Negative [employer] Other Color (U) yellow [employer] Other Glucose Ql (U) Negative [employer] Other Hemoglobin Ql (U) large [employer] [employer] Other Ketones Ql (U) Negative [employer] Other Leukocyte esterase Test strip Ql (U) trace [employer] Other Nitrite Ql (U) Positive [employer] Other pH (U) 5.5 [pH] [employer] Other Protein Ql (U) 100 [employer] Other Specific gravity (U) [Rel density] 1.025 [employer] Other Urobilinogen (U) [Mass/Vol] 0.2 mg/dL [facility] [employer] Other Urinalysis - AUTOMATED No [employer] Other Urine Cultureon 05-31-2021 Urine Culture >100,000 [employer] Other Urine Culture <16 [employer] Other Urine Culture >16 [employer] Other Urine Culture <4 [employer] Other Urine Culture 8 [employer] Other Urine Culture <2 [employer] Other Urine Culture <1 [employer] Other Urine Culture >2 [employer] Other Urine Culture <0.5 [employer] [facility] [employer] Other Urine Culture >8 [employer] Other Urine Culture >4 [employer] Other Urine Culture <32 [employer] Other Urine Culture >2/38 [facility] [employer] Other Vital Signs Date Time Vital Sign Value 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 04-21-2024 14:31-0400 Body height 162.56 cm [employer] SUPER[employer]ORJosé Miguel Marc Work Phone: [facility] 04-21-2024 14:31-0400 Body mass index (BMI) [Ratio] 55 kg/m2 [employer] SUPERVISORJosé Miguel Marc Work Phone: [facility] 04-21-2024 14:31-0400 Body weight 145.6 kg [employer] SUPERVISORJosé Miguel Keaner Work Phone: [facility] 04-21-2024 14:31-0400 Diastolic blood pressure 88 mm[Hg] [employer] SUPER[employer]ORJosé Miguel Keaner Work Phone: [facility] 04-21-2024 14:31-0400 Heart rate 111 /min [employer] SU[employer]VISORJosé Miguel Marc Work Phone: [facility] 04-21-2024 14:31-0400 SaO2% (BldA) [Mass fraction] 97 % [employer] SUPERVISORJosé Miguel Marc Work Phone: [facility] 04-21-2024 14:31-0400 Systolic blood pressure 136 mm[Hg] ROSITA Marc Work Phone: [facility] 11-26-2023 08:40-0400 Body height 162.56 cm [employer] SUPERVISORJosé Miguel Parksacher Work Phone: [facility] 11-26-2023 08:40-0400 Body mass index (BMI) [Ratio] 52.9 kg/m2 ROSITA Parksacher Work Phone: [facility] 11-26-2023 08:40-0400 Body weight 139.79 kg [employer] SUPERVISORJosé Miguel Keaner Work Phone: [facility] 11-26-2023 08:40-0400 Diastolic blood pressure 79 mm[Hg] [employer] SUPERVISORJosé Miguel Barclayrbacher Work Phone: [facility] 11-26-2023 08:40-0400 Heart rate 97 /min [employer] SUPERVISORJosé Miguel ThaoManisha Denyrbacher Work Phone: [facility] 11-26-2023 08:40-0400 SaO2% (BldA) [Mass fraction] 99 % [employer] SUPERVISORJosé Miguel ThaoManisha Denyrbacher Work Phone: [facility] 11-26-2023 08:40-0400 Systolic blood pressure 131 mm[Hg] [employer] SUPERVISORJosé Miguel ThaoManisha Charlyacher Work Phone: [facility] 11-03-2023 14:06-0400 Body height 162.56 cm [employer] SUPERVISORJosé Miguel Parksacher Work Phone: [facility] 11-03-2023 14:06-0400 Body mass index (BMI) [Ratio] 53.1 kg/m2 [employer] SUPERVISORJosé Miguel ThaoManisha Charlyacher Work Phone: [facility] 11-03-2023 14:06-0400 Body weight 140.61 kg [employer]PER[employer]OR Manisha Denyrbacher Work Phone: [facility] 11-03-2023 14:06-0400 Diastolic blood pressure 78 mm[Hg] [employer] SUPERVISORJosé Miguel Barclayrbacher Work Phone: [facility] 11-03-2023 14:06-0400 Heart rate 105 /min [employer] SUPERVISORJosé Miguel ColladoManisha Denyrbacher Work Phone: [facility] 11-03-2023 14:06-0400 SaO2% (BldA) [Mass fraction] 98 % [employer] SUPERVISORJosé Miguel ColladoManisha Denyrbacher Work Phone: [facility] 11-03-2023 14:06-0400 Systolic blood pressure 118 mm[Hg] [employer] SUPERVISORJosé Miguel Barclayrbacher Work Phone: [facility] 10-08-2023 10:50-0500 Body height 162.56 cm [employer] SUPERVISORJosé Miguel Parksacher Work Phone: [facility] 10-08-2023 10:50-0500 Body weight 139.25 kg [employer] SUPERVISORJosé Miguel Barclayrbacher Work Phone: [facility] 10-01-2023 09:20-0500 Body height 162.56 cm [employer] SUPERVISORJosé Miguel Barclayrbacher Work Phone: [facility] 10-01-2023 09:20-0500 Body mass index (BMI) [Ratio] 53.6 kg/m2 [employer] SUPERVISORJosé Miguel Parksacher Work Phone: [facility] 10-01-2023 09:20-0500 Body weight 141.69 kg [employer] SUPERVISORJosé Miguel Barclayrbacher Work Phone: [facility] 10-01-2023 09:20-0500 Diastolic blood pressure 75 mm[Hg] [employer] SUPERVISORJosé Miguel Barclayrbacher Work Phone: [facility] 10-01-2023 09:20-0500 Heart rate 85 /min [employer] SUPERVISORJosé Miguel Parksacher Work Phone: [facility] 10-01-2023 09:20-0500 Respiratory rate 18 /min [employer] SUPERVISORJosé Miguel Parksacher Work Phone: [facility] 10-01-2023 09:20-0500 SaO2% (BldA) [Mass fraction] 99 % [employer] SUPERVISORJosé Miguel Barclayrbacher Work Phone: [facility] 10-01-2023 09:20-0500 Systolic blood pressure 123 mm[Hg] [employer] SUPERVISORJosé Miguel Barclayrbacher Work Phone: [facility] 09-03-2023 08:00-0500 Body height 162.56 cm [employer] SUPERVISORJosé Miguel Parksacher Work Phone: [facility] 09-03-2023 08:00-0500 Body weight 138.79 kg [employer] SUPER[employer]OR Manisha Marc Work Phone: [facility] 09-03-2023 08:00-0500 Diastolic blood pressure 78 mm[Hg] [employer] SUPER[employer]OR Manisha Charlyacher Work Phone: [facility] 09-03-2023 08:00-0500 Systolic blood pressure 118 mm[Hg] [employer] SUPER[employer]OR Manisha Parksacher Work Phone: [facility] 08-19-2023 09:45-0500 Body height 162.56 cm Nely Cruz Other [facility] 08-13-2023 14:00-0500 Body height 162.56 cm Manisha Marc Other [facility] 08-13-2023 14:00-0500 Body mass index (BMI) [Ratio] 52.35 kg/m2 Manisha Marc Other [facility] [employer] Other 08-13-2023 14:00-0500 Body weight 138.35 kg Manisha Marc Other [employer] Other 08-13-2023 14:00-0500 Body weight 138.34 kg RSOITA Marc Work Phone: [facility] 08-13-2023 14:00-0500 Diastolic blood pressure 80 mm[Hg] Manisha Marc Other [facility] 08-13-2023 14:00-0500 SaO2% (BldA) [Mass fraction] 98 % Manisha Marc Other [facility] [employer] Other 08-13-2023 14:00-0500 Systolic blood pressure 114 mm[Hg] Manisha Marc Other [facility] 07-15-2023 07:45-0500 Body height 162.56 cm Celio Mullins Other [facility] 07-15-2023 07:45-0500 Body mass index (BMI) [Ratio] 52.98 kg/m2 Celio Mullins Other [facility] Other 07-15-2023 07:45-0500 Body weight 140.03 kg Celio Mullins Other [facility] Other 07-15-2023 07:45-0500 Body weight 140.02 kg ROSITA Marc Work Phone: [facility] 07-15-2023 07:45-0500 Diastolic blood pressure 66 mm[Hg] Celio Umllins Other [facility] 07-15-2023 07:45-0500 Respiratory rate 18 /min Celio Mullins Other [facility] Other 07-15-2023 07:45-0500 SaO2% (BldA) [Mass fraction] 98 % Celio Mullins Other [facility] Other 07-15-2023 07:45-0500 Systolic blood pressure 112 mm[Hg] Celio Mullins Other [facility] 07-07-2023 11:15-0500 Body height 162.56 cm Michelle Ernandez Other [facility] 07-07-2023 11:15-0500 Body mass index (BMI) [Ratio] 52.69 kg/m2 Michelle Ernandez Other [facility] Other 07-07-2023 11:15-0500 Body temperature 98 [degF] Michelle Ernandez Other [facility] Other 07-07-2023 11:15-0500 Body weight 139.26 kg Michelle Oma Other [facility] Other 07-07-2023 11:15-0500 Body weight 139.25 kg ROSITA Manisha Marc Work Phone: [facility] 07-07-2023 11:15-0500 Respiratory rate 20 /min Michelle Oma Other [facility] Other 07-07-2023 11:15-0500 SaO2% (BldA) [Mass fraction] 98 % Michelle Oma Other [facility] Other 06-29-2023 10:20-0500 Body height 162.56 cm Michelle Oma Other [facility] Other 06-29-2023 10:20-0500 Body mass index (BMI) [Ratio] 53.03 kg/m2 Michelle Oma Other [facility] Other 06-29-2023 10:20-0500 Body temperature 99.7 [degF] Michelle Oma Other [facility] Other 06-29-2023 10:20-0500 Body weight 140.16 kg Michelle Oma Other [facility] Other 06-29-2023 10:20-0500 Respiratory rate 19 /min Michelle Oma Other [facility] Other 06-29-2023 10:20-0500 SaO2% (BldA) [Mass fraction] 98 % Michelle Oma Other [facility] Other 06-11-2023 15:30-0400 Body height 162.56 cm Manisha Barclayfani Other [facility] Other 06-11-2023 15:30-0400 Body mass index (BMI) [Ratio] 53.79 kg/m2 Manisha Tari Other [facility] Other 06-11-2023 15:30-0400 Body weight 142.16 kg Manisha Charlymarycarmentad Other [facility] Other 06-11-2023 15:30-0400 Diastolic blood pressure 62 mm[Hg] Manisha Tari Other [facility] Other 06-11-2023 15:30-0400 SaO2% (BldA) [Mass fraction] 99 % Manisha Tari Other [facility] Other 06-11-2023 15:30-0400 Systolic blood pressure 126 mm[Hg] Manisha Tari Other [facility] Other 05-06-2023 13:40-0400 Body height 162.56 cm Casandra Hassan Other [facility] Other 05-06-2023 13:40-0400 Body mass index (BMI) [Ratio] 53.65 kg/m2 Casandra Hassan Other [facility] Other 05-06-2023 13:40-0400 Body temperature 98.4 [degF] Casandra Hassan Other [facility] Other 05-06-2023 13:40-0400 Body weight 141.8 kg Casandra Sonya Other [facility] Other 05-06-2023 13:40-0400 Diastolic blood pressure 81 mm[Hg] Casandra Tesfayeley Other [facility] Other 05-06-2023 13:40-0400 Respiratory rate 18 /min Casandra Tesfayeley Other [facility] Other 05-06-2023 13:40-0400 SaO2% (BldA) [Mass fraction] 95 % Casandra Tesfayeley Other [facility] Other 05-06-2023 13:40-0400 Systolic blood pressure 134 mm[Hg] Casandramila Hassan Other [facility] Other 04-30-2023 08:30-0400 Body height 162.56 cm Manisha Marc Other [facility] Other 04-30-2023 08:30-0400 Body mass index (BMI) [Ratio] 53.86 kg/m2 Manisha Marc Other [facility] Other 04-30-2023 08:30-0400 Body weight 142.34 kg Manisha Marc Other [facility] Other 04-30-2023 08:30-0400 Diastolic blood pressure 82 mm[Hg] Manisha Marc Other [facility] Other 04-30-2023 08:30-0400 SaO2% (BldA) [Mass fraction] 100 % Manisha Marc Other [facility] Other 04-30-2023 08:30-0400 Systolic blood pressure 120 mm[Hg] Manisha Tari Other [facility] Other 04-29-2023 07:00-0400 Body height 162.56 cm Nely Peonutt Other [facility] Other 04-29-2023 07:00-0400 Body mass index (BMI) [Ratio] 54.41 kg/m2 Nely Peonutt Other [facility] Other 04-29-2023 07:00-0400 Body weight 143.79 kg Nely Fitt Other [facility] Other 03-25-2023 13:45-0400 Body height 162.56 cm [employer] Other [facility] Other 03-25-2023 13:45-0400 Body mass index (BMI) [Ratio] 55.45 kg/m2 [employer] Other [facility] Other 03-25-2023 13:45-0400 Body weight 146.56 kg [employer] Other [facility] Other 03-25-2023 13:45-0400 Diastolic blood pressure 57 mm[Hg] [employer] Other [facility] Other 03-25-2023 13:45-0400 Respiratory rate 18 /min [employer] Other [facility] Other 03-25-2023 13:45-0400 SaO2% (BldA) [Mass fraction] 97 % [employer] Other [facility] Other 03-25-2023 13:45-0400 Systolic blood pressure 106 mm[Hg] Celio Mullins Other [facility] Other 02-11-2023 12:15-0400 Body height 163.83 cm Casandra Hassan Other [facility] Other 02-11-2023 12:15-0400 Body mass index (BMI) [Ratio] 54.88 kg/m2 Casandra Hassan Other [facility] Other 02-11-2023 12:15-0400 Body temperature 98 [degF] Casandra Hassan Other [facility] Other 02-11-2023 12:15-0400 Body weight 147.33 kg Casandra Hassan Other [facility] Other 02-11-2023 12:15-0400 Diastolic blood pressure 85 mm[Hg] Casandra Hassan Other [facility] Other 02-11-2023 12:15-0400 Respiratory rate 18 /min Casandra Hassan Other [facility] Other 02-11-2023 12:15-0400 SaO2% (BldA) [Mass fraction] 98 % Casandra Hassan Other [facility] Other 02-11-2023 12:15-0400 Systolic blood pressure 128 mm[Hg] Casandra Hassan Other [facility] Other 07-13-2022 11:15-0500 Body height 163.83 cm Michelle Ernandez Other [facility] Other 07-13-2022 11:15-0500 Body mass index (BMI) [Ratio] 51.54 kg/m2 Michelle Oma Other [facility] Other 07-13-2022 11:15-0500 Body temperature 96.6 [degF] Michelle Oma Other [facility] Other 07-13-2022 11:15-0500 Body weight 138.35 kg Michelle Oma Other [facility] Other 07-13-2022 11:15-0500 Respiratory rate 18 /min Michelle Oma Other [facility] Other 07-13-2022 11:15-0500 SaO2% (BldA) [Mass fraction] 96 % Michelle Oma Other [facility] Other 07-06-2021 13:00-0500 Body height 163.83 cm Michelle Oma Other [facility] Other 07-06-2021 13:00-0500 Body mass index (BMI) [Ratio] 49 kg/m2 Michelle Oma Other [facility] Other 07-06-2021 13:00-0500 Body temperature 97.5 [degF] Michelle Oma Other [facility] Other 07-06-2021 13:00-0500 Body weight 131.54 kg Michelle Oma Other [facility] Other 07-06-2021 13:00-0500 SaO2% (BldA) [Mass fraction] 96 % Michelle Haynesmond Other [facility] Other 06-17-2021 11:00-0400 Body height 163.83 cm Michelle Oma Other [facility] Other 06-17-2021 11:00-0400 Body mass index (BMI) [Ratio] 49.68 kg/m2 Michelle Oma Other [facility] Other 06-17-2021 11:00-0400 Body temperature 98.3 [degF] Michelle Oma Other [facility] Other 06-17-2021 11:00-0400 Body weight 133.36 kg Michelle Oma Other [facility] Other 06-17-2021 11:00-0400 Respiratory rate 18 /min Michelle Oma Other [facility] Other 06-17-2021 11:00-0400 SaO2% (BldA) [Mass fraction] 96 % Michelle Oma Other [facility] Other 05-31-2021 13:50-0400 Body height 163.83 cm Michelle Oma Other [facility] Other 05-31-2021 13:50-0400 Body mass index (BMI) [Ratio] 50.36 kg/m2 Michelle Oma Other [facility] Other 05-31-2021 13:50-0400 Body temperature 97.8 [degF] Michelle Oma Other [facility] Other 05-31-2021 13:50-0400 Body weight 135.17 kg Michelle Ernandez Other [facility] [employer] Other 05-31-2021 13:50-0400 Diastolic blood pressure 90 mm[Hg] Michelle Ernandez Other [facility] Other 05-31-2021 13:50-0400 Respiratory rate 18 /min Michelle Ernandez Other [facility] Other 05-31-2021 13:50-0400 SaO2% (BldA) [Mass fraction] 98 % Michelle Ernandez Other [facility] [employer] Other 05-31-2021 13:50-0400 Systolic blood pressure 150 mm[Hg] Michelle Ernandez Other [employer] Other Encounters Encounter Date Encounter Type Care Provider Facility Start: 05-13-2024 ambulatory Edward Richey acility:[facility] Start: 04-21-2024 End: 04-21-2024 ambulatory ROSITA Marc Work Phone: [facility] Work Phone: Start: 04-21-2024 End: 04-21-2024 Patient encounter procedure ROSITA Marc Work Phone: [facility] Physician [facility] Work Phone: Start: 04-12-2024 Non-patient / Non-visit ROSITA Marc Work Phone: [facility] Physician [facility] Professional [employer] Work Phone: Start: 04-03-2024 Registered Recurring ROSITA Marc Work Phone: [facility] Start: 03-16-2024 End: 03-16-2024 ambulatory MELA ANDERSON Not Available Start: 01-19-2024 End: 01-19-2024 [facility]ulatory [facility] Start: 01-01-2024 Registered Recurring ROSITA Marc Work Phone: [facility] Start: 11-26-2023 End: 11-26-2023 ambulatory [employer] SUPERVISORJosé Miguel Marc Work Phone: [facility] Work Phone: Start: 11-26-2023 End: 11-26-2023 Patient encounter procedure ROSITA Marc Work Phone: [facility] Physician [facility] Work Phone: Start: 11-03-2023 End: 11-03-2023 ambulatory ROSITA Marc Work Phone: [facility] Work Phone: Start: 11-03-2023 End: 11-03-2023 Patient encounter procedure [employer] SUPERVISORJosé Miguel Marc Work Phone: [facility] Physician [facility] Work Phone: Start: 11-03-2023 End: 11-03-2023 ambulatory TOBIAS WATTERSZIO Not Available Start: 10-30-2023 Non-patient / Non-visit ROSITA Marc Work Phone: [facility] Physician [facility] [employer] Work Phone: Start: 10-08-2023 End: 10-08-2023 Patient encounter procedure ROSITA Marc Work Phone: [facility] [place] Work Phone: Start: 10-08-2023 End: 10-08-2023 ambulatory ROSITA Marc Work Phone: [facility] Work Phone: Start: 10-06-2023 Non-patient / Non-visit ROSITA Marc Work Phone: [facility] [employer] Work Phone: Start: 10-06-2023 End: 10-06-2023 ambulatory [facility] Start: 10-01-2023 End: 10-01-2023 Patient encounter procedure ROSITA Marc Work Phone: [facility] Work Phone: Start: 10-01-2023 End: 10-01-2023 ambulatory ROSTIA Marc Work Phone: [facility] Work Phone: Start: 09-10-2023 Registered Recurring ROSITA Marc Work Phone: [facility] [employer] Start: 09-08-2023 End: 09-08-2023 ambulatory [facility] Start: 09-03-2023 End: 09-03-2023 Patient encounter procedure ROSITA Marc Work Phone: [facility]- Start: 08-19-2023 IBT FOR OBESITY GROU P 2-10 30M Nely Cruz [facility] Start: 08-19-2023 End: 08-19-2023 ambulatory Manisha Marc [facility] Professional [employer] Other Start: 08-19-2023 Registered Recurring ROSITA Marc Work Phone: [facility] Work Phone: Start: 08-19-2023 End: 08-19-2023 Patient encounter procedure ROSITA Marc Work Phone: [facility] Work Phone: Start: 08-14-2023 Registered Recurring [employer]PER[employer] Layla reyna Tari Work Phone: [facility] [employer] Start: 08-13-2023 End: 08-13-2023 ambulatory Manisha Tari Other [employer] Other Start: 08-13-2023 Office outpatient visit 15 minutes Manisha Marc [facility] Start: 08-13-2023 End: 08-13-2023 Patient encounter procedure [employer] SUPERVISORJosé Miguel Marc Work Phone: [facility] Physician [facility] Work Phone: Start: 07-24-2023 End: 07-24-2023 ambulatory MELA ANDERSON Not Available Start: 07-21-2023 End: 07-21-2023 ambulatory Bud Combs MD Facility:[facility] Start: 07-19-2023 End: 07-19-2023 ambulatory ROSITA Thaonifer Tari Work Phone: [facility] Work Phone: Start: 07-19-2023 End: 07-19-2023 Patient encounter procedure ROSITA Manisha Tari Work Phone: [facility]-[employer] Start: 07-15-2023 End: 07-15-2023 ambulatory Celio Mullins Other [facility] Other Start: 07-15-2023 Follow-up encounter Celio Mullins [facility] Start: 07-15-2023 End: 07-15-2023 Patient encounter procedure [employer] SUPERVISORJosé Miguel ThaoManishaamita Marc Work Phone: [facility] Work Phone: Start: 07-07-2023 End: 07-07-2023 ambulatory Michelle Ernandez Other [employer] Other Start: 07-07-2023 Office outpatient visit 15 minutes Michelle Oma [facility] Start: 07-07-2023 End: 07-07-2023 Patient encounter procedure [employer] SUPERVISORJosé Miguel Marc Work Phone: [facility] Work Phone: Start: 07-03-2023 Registered Recurring [employer] SUPERVISORJosé Miguel Marc Work Phone: [facility] [employer] Start: 07-03-2023 End: 07-03-2023 Patient encounter procedure [employer] SUPERVISORJosé Miguel Marc Work Phone: [facility] [place] Work Phone: Start: 07-03-2023 End: 07-03-2023 ambulatory ROSITA Marc Work Phone: [facility] Work Phone: Start: 07-01-2023 End: 07-01-2023 Patient encounter procedure [employer] SUPERVISORJosé Miguel Marc Work Phone: [facility] [place] Work Phone: Start: 07-01-2023 End: 07-01-2023 ambulatory Manisha Marc Facility:[facility] Start: 06-29-2023 End: 06-29-2023 ambulatory Michelle Oma Other [facility] Other Start: 06-29-2023 Office outpatient visit 15 minutes Michelle Oma [facility] Start: 06-17-2023 Registered Recurring ROSITA Marc Work Phone: [facility] Work Phone: Start: 06-11-2023 End: 06-11-2023 ambulatory Manisha Marc Other [facility] Other Start: 06-11-2023 Office outpatient visit 25 minutes Manisha Tari [facility] Start: 05-06-2023 End: 05-06-2023 ambulatory Casandramila Hassan Other [facility] Other Start: 05-06-2023 Office outpatient visit 10 minutes Casandra Hassan [facility] Start: 05-01-2023 End: 05-01-2023 ambulatory Manisha Tari Other [facility] Other Start: 05-01-2023 Telephone encounter Manisha Parksbrian desai [facility] Start: 04-30-2023 End: 04-30-2023 ambulatory Manisha Tari Other [facility] Other Start: 04-30-2023 Encounter for genera l adult medical examination without abnormal findings Manisha Tari [facility] Start: 04-30-2023 Periodic preventive med est patient 18-39 yrs Manisha Marc [facility] Start: 04-29-2023 ([facility]) N Initial Provider Nely Pepe [facility] Start: 04-29-2023 End: 04-29-2023 ambulatory Nely Cruz Other [facility] Other Start: 03-25-2023 End: 03-25-2023 ambulatory Celio Mullins Other [facility] Other Start: 03-25-2023 Nutrition therapy Celio johns [facility] Start: 03-25-2023 Telephone encounter Celio guerrero [facility] Start: 03-14-2023 End: 03-14-2023 ambulatory Nely Cruz Other [facility] Other Start: 03-14-2023 Telephone encounter Nely Fitt [facility] Start: 02-11-2023 End: 02-11-2023 ambulatory Casandra Hassan Other [facility] Other Start: 02-11-2023 Office outpatient visit 15 minutes Casandra Hassan [facility] Start: 12-31-2022 End: 01-01-[address] TOBIAS OSCAR . Facility:[facility] Start: 11-26-2022 End: 11-27-[address] TOBIAS OSCAR . Facility:[facility] Start: 11-08-2022 End: 11-09-[address] BOOM ROD Facility:[facility] Start: 10-28-2022 End: 10-28-[address] TOBIAS OSCAR . Facility:[facility] Start: 07-13-2022 End: 07-13-2022 ambulatory Michelle Ernandez Other [facility] Other Start: 07-13-2022 Office outpatient visit 15 minutes Michelle Ernandez [facility] Start: 03-07-2022 End: 03-08-[address] BOOM ROD Facility:[facility] Start: 01-25-2022 Encounter for genera l adult medical examination without abnormal findings DR BOOM ROD [facility] Start: 01-21-2022 End: 01-22-[address] BOOM ROD Facility:[facility] Start: 01-21-2022 End: 01-22-2022 Encounter for general adult medical examination without abnormal findings DR BOOM ROD Facility:[facility] Start: 07-06-2021 End: 07-06-2021 ambulatory Michelle Ernandez Other [facility] Other Start: 07-06-2021 Office outpatient visit 15 minutes Michellenawaf Ernandez [facility] Start: 06-17-2021 Office outpatient visit 15 minutes Michelle Oma [facility] Start: 05-31-2021 Office outpatient visit 25 minutes Michelle Oma [facility] Start: 08-27-2018 End: 08-27-2018 ambulatory BRENT KINNEY Facility:[facility] Procedures Date Procedure Procedure Detail Performing Clinician Start: 10-08-2023 MRI of head [employer]PER[employer] Heaven amita Marc Work Phone: Start: 05-31-2021 Piperacillin/tazobactam Michelle Oma Other Start: 08-27-2018 extraction, erupted tooth or exposed root (elevation and/or forceps removal) BRENT TROCONIS Start: 08-27-2018 removal of impacted tooth - soft tissue BRENT TROCONIS Start: 08-27-2018 Urine test visual color cmprsn meths BRENT TROCONIS Plan of Treatment Date Care Activity Detail Author Comprehensive metabo lic 2000 panel - Serum or Plasma [facility] enter Holter monitor study [facility] MR Unspecified body region [facility] Immunizations Immunization Date Immunization Notes Care Provider Fa cility 03-03-2021 Do not use COVID-19 Pfizer 2 dose Manisha Marc Other [facility] 02-10-2021 Do not use COVID-19 Pfizer 2 dose Manisha Marc Other [facility] 08-03-2018 Toradol per 15 mg Michelle Dym ond Other [facility] Other Payers Date Payer Category Payer Self-pay [id number] 2022 Self-pay [id number] 2022 Private Health Insurance 1991 Unknown [id number] [id number]. 732 1991 Unknown [id number] 2.16.840.1.227766.3.579.2. 593 1991 Unknown [id number] 2.16.840.1.464759.3.579.2. 593 1991 Unknown [id number] 2.16.840.1.124204.3.579.2. 593 1991 Unknown [id number] 2.16.840.1.562672.3.579.2. 593 1991 Unknown [id number] 2.16.840.1.495239.3.579.2. 593 1991 Unknown [id number] 2.16.840.1.688546.3.579.2. 593 1991 Unknown [id number] 2.16.840.1.198764.3.579.2. 196 1991 Unknown [id number] 2.16.840.1.705624.3.579.2. 196 1991 Unknown [id number] 2.16.840.1.914877.3.579.2. 196 1991 Unknown [id number] 2.16.840.1.112530.3.579.2. 196 1991 Unknown [id number] 2.16.840.1.062371.3.579.2. 1259 1991 Unknown [id number] 2.16.840.1.194955.3.579.2. 1259 1991 Unknown [id number] 2.16.840.1.647620.3.579.2. 1259 1959 Medicaid [id number] 1959 Unknown [id number] [facility] [place] [id number] Unknown [id number] 2.16.840.1.155877.3.579.2. 531 Unknown [id number] 2.16.840.1.793313.3.579.2. 531 Unknown [id number] 2.16.840.1.639609.3.579.2. 531 Unknown [id number] 2.16.840.1.190620.3.579.2. 531 Unknown [id number] 2.16.840.1.982071.3.579.2. 531 Unknown [id number] 2.16.840.1.559864.3.579.2. 531 Unknown [id number] Social History Date Type Detail Facility Unknown if ever smoked [facility] Other Sex Assigned At Sex Assigned At Bir th [facility] Other Start: 12-07-2021 End: 11-26-2023 Tobacco smoking status NHIS Never smoked tobacco (finding) [facility] Start: 1990 Sex Assigned At Female [facility] Clinical Notes 05-31-2021 to 08-19-2023 [...] method for meal planning ; grocery shortcuts [facility] Other 12-27-2023 Evaluation note* Encounter Date Diagnosis [...] You have been given relevant education handouts. [facility] Other 11-28-2023 Evaluation note* Encounter Date Diagnosis [...] voice recognition software. Please excuse errors in vendor management specialist. Jun, Dietary surveillance and counseling (ICD-10 - [...] metformin 1000 mg total daily, managed by [facility] Jun, Asthma (ICD-10 - J45.909) Jun, Migraine (ICD-10 - G43.909) Jun, Primary hypertension (ICD-10 - I10) Currently on pharmacotherapy Potential for overtreatment given lightheadedness Jun, Other An additional 9 minutes was spent counseling the patient on behavior modification including proper nutrition and physical activity. [facility] Other 11-20-2023 Evaluation note* Encounter Date Diagnosis [...] until you feel better. You may take [id number] Imodium for diarrhea as needed. Avoid dairy foods as well as greasy fried foods. Follow-up with your physician if no improvement in 2 to 3 days. May return to work on Jun, Diarrhea, unspecified type (ICD-10 - R19.7) Diarrhea: adult home care material was printed [facility] Other 11-12-2023 Evaluation note* Encounter Date Diagnosis [...] to 3-day Jun, Bronchitis (ICD-10 - J40) [facility] Other 10-25-2023 Evaluation note* Encounter Date Diagnosis Assessment Notes Treatment Notes Treatment Clinical Notes May, Degenerative lumbar disc (ICD-10 - M51.36) L4-5 Pt would like a referral to pain management regarding her chronic back pain. Her last x-ray of the lumbar spine was completed 10/2022 at [facility]--reviewed and in scanned documents. Referral placed. [...] disorder (ICD-10 - F31.81) Referral placed to [facility] for medication mangement. [facility] Other 09-19-2023 Evaluation note* Encounter Date Diagnosis Assessment Notes Treatment Notes Treatment Clinical Notes Apr, Exposure to head lice (ICD-10 - Z20.7) Discussed with patient exam is without any signs of current lice infection. May return to work tomorrow. Patient completed next treatment yesterday. Patient verbalized understanding. [facility] Other 09-14-2023 Evaluation note* Encounter Date Diagnosis Assessment Notes Treatment Notes Treatment Clinical Notes Apr, Primary hypertension (ICD-10 - I10) [facility] Other 09-13-2023 Evaluation note* Encounter Date Diagnosis [...] (ICD-10 - R73.01) Will obtain records from [facility] for most recent labs. Patient is advised [...] Low back pain, unspecified (ICD-10 - M54.50) [facility] Other 09-12-2023 Evaluation note* Encounter Date Diagnosis [...] 2) Aim for < 45 g carb/meal [facility] Other 08-08-2023 Evaluation note* Encounter Date Diagnosis [...] voice recognition software. Please excuse errors in vendor management specialist. Mar, Dietary surveillance and counseling (ICD-10 - [...] as sweet tea, replace ice cream with Faroese yogurt, use protein shake in the a.m. [...] with the patient, and documenting clinical information. [facility] Other 06-27-2023 Evaluation note* Encounter Date Diagnosis [...] 7 days, sooner if significantly worsening symptoms. [facility] Other 11-26-2022 Evaluation note* Encounter Date Diagnosis [...] 3 days. Off work today and tomorrow [facility] Other 11-19-2021 Evaluation note* Encounter Date Diagnosis [...] writting by CDC Care At Home document. [facility] Other 10-31-2021 Evaluation note* Encounter Date Diagnosis [...] writting by CDC Care At Home document. [facility] Other 10-14-2021 Evaluation note* Encounter Date Diagnosis Assessment Notes Treatment Notes Treatment Clinical Notes May, Dysuria (ICD-10 - R30.0) May, Urinary tract infection, site not specified (ICD-10 - N39.0) May, Hematuria, unspecified (ICD-10 - R31.9) [facility] Other [facility] Other evalumoztw noteNo assessment information available [facility] Work Phone: evaluation note* Diagnosis Onset Date Resolution Status Dietary surveillance and counseling acute Exercise counseling acute Food insecurity acute PCOS (polycystic ovarian syndrome) acute Prediabetes acute Severe obesity (BMI >= 40) a [facility] Work Phone: evaluation note* Diagnosis Onset Date Resolution Status Dietary surveillance and counseling acute Exercise counseling acute Food insecurity acute PCOS (polycystic ovarian syndrome) acute Prediabetes acute Severe obesity (BMI >= 40) a cute Lightheadedness acute Menorrhagia acute Palpitations acute [facility] Work Phone: evaluation note* Diagnosis Onset Date Resolution Status Dietary surveillance and counseling acute Exercise counseling acute Food insecurity acute PCOS (polycystic ovarian syndrome) acute Prediabetes acute Severe obesity (BMI >= 40) a cute Lightheadedness acute Menorrhagia acute Palpitations acute Dietary surveillance and counseling acute Exercise counseling acute Severe obesity (BMI >= 40) a [facility] Work Phone: Evaluation note* Diagnosis Onset Date Resolution Status Lightheadedness acute Menorrhagia acute Palpitations acute Dietary surveillance and counseling acute Exercise counseling acute Severe obesity (BMI >= 40) a [facility] Work Phone: evaluation note* Diagnosis Onset Date Resolution Status Aphasia acute History of seizures acute Memory loss acute Migraine acute [facility] Work Phone: history general Narrative - [...] History Hospitalized for blood l oss 2010 [facility] Other history general Narrative - Reported* Type [...] History Hospitalized for blood l oss 2010 [facility] Other history general Narrative - Reported* Type [...] History Hospitalized for blood l oss 2010 [facility] Other history general Narrative - Reported* Type [...] History Hospitalized for blood l oss 2010 [facility] Other history general Narrative - Reported* Type [...] History Hospitalized for blood l oss 2010 [facility] Other Hisivur general Narrative - Reported* Type Description Date [...] History Hospitalized for blood l oss 2010 [facility] Other Hisrupv general Narrative - Reported* Type Description Date [...] History Hospitalized for blood l oss 2010 [facility] Other Reason for referral (narrative)* Reason *06/20 would sherif ke a referral to pscyiatrist -- was recently diagnosed with bipolar and would like medication management. Diagnosis 1 Bipolar 2 disorder ( F31.81) Referral Organization [facility] Damion tsang Referring Provider First Name Manisha Referring Provider Last Name Tari Referring Provider Specialty Nurse Luist ernesto Referred Organization [facility] [place] Referred Address [address],[place], [place],[address] Referred Provider Specialty Psychiatry Referral Priority Routine General Notes Paola Henderson 01:25:30 PM >received today, not sure if [facility] does medication management, waiting for notes to be locked Paola Henderson 06/13/2023 10:34:39 AM >notes locked, referral faxed Clinical Notes p: [id number] f: [id number] [facility] Reason *FU 06/20 would li yaneli a referral to pain management for other options for pain control for back pain Diagnosis 1 Degenerative lumbar disc (M51.36) Referral Organization [facility] Damon tsang Referring Provider First Name Manisha Referring Provider Last Name Tari Referring Provider Specialty Nurse Noble orozco Referred Organization [facility] Referred Provider Yrn Parsons Referred Address [address] [place], [place],[address] Referred Provider Specialty Pain Medicin e Referral Priority Routine General Notes Paola Henderson 01:21:23 PM >received today, waiting for notes to be locked Paola Henderson 06/13/2023 10:25:26 AM >notes locked, referral faxed Clinical Notes f: [phone] [facility] Other Summary Purpose Family History No Family [...] and content) DATE CREATED AUTHOR 08/27/2021 [facility] [employer] DATE CREATED AUTHOR AUTHOR'S ORGANIZ ATION 01/01/2023 [facility] DATE CREATED AUTHOR AUTHOR'S ORGANIZ ATION 01/30/2024 [facility] DATE CREATED AUTHOR AUTHOR'S ORGANIZ ATION 03/18/2024 [facility] DATE CREATED AUTHOR AUTHOR'S ORGANIZ ATION 05/22/2024 [facility] REASON FOR VISIT (unrecogniz [...] Member Role Status Dates Manisha Marc APRN GAS PLANT TECHNICIAN-C Primary Care Provider Active Team Status: Active Member Role Status Dates Manisha Marc APRN G[employer] PLANT TECHNICIAN-C Primary Care Provider, Attending Provider Active Team Status: Inactive Member Role Status Dates Manisha Marc APRN G[employer] PLANT TECHNICIAN-C Primary Care Provider Active Celio Mullins DO Attending Provider Active Team Status: Inactive Member Role Status Dates Manisha Marc APRN GAS PLANT TECHNICIAN-C Primary Care Provider Active Clinton Frazier MD Attending Provider Active Team Status: Inactive Member Role Status Dates Manisha Marc APRN GAS PLANT TECHNICIAN-C Primary Care Provider Active Start: July 032022 End: July 03, 2023 Celio Mullins DO Attending Provider Active St art: July 03, 2023 End: July 03, 2023 Team Status: Active Member Role Status Dates Manisha Marc APRN G[employer] PLANT TECHNICIAN-C Primary Care Provider Active Start: July 032022 Edward Gilmore MD Attending Provider Active Start: July 03, 2023 Team Status: Inactive Member Role Status Dates Michelle Ernandez [employer] TECHNICIAN-C Attending Provider Active S tart: July 07, 2023 End: July 07, 2023 Team Status: Inactive Member Role Status Dates Celio Mullins DO Attending Provider Active St art: July 15, 2023 End: July 15, 2023 Team Status: Inactive Member Role Status Dates Manisha Marc APRN G[employer] PLANT TECHNICIAN-C Primary Care Provider Active Start: July End: July 19, 2023 Clinton Frazier MD Attending Provider Active Start: July 19, 2023 End: July 19, 2023 Team Status: Inactive Member Role Status Dates Manisha Marc APRN [employer] TECHNICIAN-C Attending Provider Act rafal Start: August 13, 2023 End: August 13, 2023 Team Status: Inactive Member Role Status Dates Nely Cage [facility] Attending Provider Active Start: August 19, 2023 End: August 19, 2023 Team Status: Active Member Role Status Dates Manisha Marc APRN [employer] PLANT TECHNICIAN-C Primary Care Provider, Attending Provider Active Start: August 19, 2023 Team Status: Inactive Member Role Status Dates Manisha Marc APRN G[employer] PLANT TECHNICIAN-C Attending Provider Act rafal Start: September 03, 2023 End: September 03, 2023 Team Status: Inactive Member Role Status Dates Manisha Marc APRN G[employer] PLANT TECHNICIAN-C Primary Care Provider Active Start: October 012023 End: October 01, 2023 Celio Mullins DO Attending Provider Active St art: October 01, 2023 End: October 01, 2023 Team Status: Active Member Role Status Dates Manisha Marc APRN G[employer] PLANT TECHNICIAN-C Primary Care Provider Active Start: August 142022 Edward Gilmore MD Attending Provider Active Start: August 14, 2023 Team Status: Active Member Role Status Dates Manisha Marc APRN G[employer] PLANT TECHNICIAN-C Primary Care Provider, Attending Provider Active Start: October 06, 2023 Team Status: Inactive Member Role Status Dates Manisha Marc APRN [employer] PLANT TECHNICIAN-C Primary Care Provider Active Start: October 082023 End: October 08, 2023 Akil Cox DO Attending Provider Active Start: October 08, 2023 End: October 08, 2023 Team Status: Active Member Role Status Dates Manisha Marc APRN G[employer] PLANT TECHNICIAN-C Primary Care Provider, Attending Provider Active Start: October 30, 2023 Team Status: Inactive Member Role Status Dates Manisha Marc APRN G[employer] PLANT TECHNICIAN-C Primary Care Provider, Attending Provider Active Start: November 03, 2023 End: November 03, 2023 Team Status: Active Member Role Status Dates Manisha Marc APRN G[employer] PLANT TECHNICIAN-C Primary Care Provider Active Start: August Edward Gilmore MD Attending Provider Active Start: September 10, 2023 Team Status: Inactive Member Role Status Dates Manisha Marc [employer] G[employer] PLANT TECHNICIAN-C Primary Care Provider Active Start: November 26, 2023 End: November 26, 2023 Celio Mullins DO Attending Provider Active St art: November 26, 2023 End: November 26, 2023 Team Status: Active Member Role Status Dates Manisha Marc APRN G[employer] PLANT TECHNICIAN-C Primary Care Provider Active Start: January 01, 2024 Edward Gilmore MD Attending Provider Active Start: January 01, 2024 Team Status: Active Member Role Status Dates Manisha Marc APRN G[employer] PLANT TECHNICIAN-C Primary Care Provider Active Start: April 03, 2024 Edward Gilmore MD Attending Provider Active Start: April 03, 2024 Team Status: Active Member Role Status Dates Manisha Marc APRN GAS PLANT TECHNICIAN-C Primary Care Provider Active Start: April 12, 2024 Jaymiehannah Barbozated Griffin DO Attending Provider Active Start: April 12, 2024 Team Status: Inactive Member Role Status Dates Manisha Marc APRN GAS PLANT TECHNICIAN-C Primary Care Provider, Attending Provider Active Start: [...] BE BASED ON THE PRIMARY CLINICAL RECORDS. [employer] [facility]. provides no warranty or guarantee of the accuracy or completeness of information in this document.
[2024-06-08 22:38] VITALS: BP 140/89; PULSE 81; TEMP 36.8; O2SAT 100; BMI 55.0
--- NOTE | 2024-06-08 23:03 | ED.DENTAL1 ---
HPI - Dental/Oral General Chief complaint: Dental/Oral Stated complaint: Facial Pain, Earache Time Seen by Provider: 06/08/24 22:40 Source: patient Mode of arrival: walk-in Limitations: no limitations History of Present Illness HPI Narrative: 33-year-old female presents to the emergency department for left dental pain. She is complaining pain in the left lower dentition and it seems to radiate to the left ear. She was worried she might have an ear infection 2. She has a dentist and an appointment with them next week. The pain is moderate and continuous and throbbing. Related Data Home Medications ?Medication ?Instructions ?Recorded ?Confirmed albuterol sulfate 90 mcg/actuation 2 inh inhalation Q6H PRN shortness 01/17/23 04/14/24 aerosol inhaler (ProAir HFA) of breath or wheezing gabapentin 300 mg capsule 300 mg PO Q12H PRN pain 01/17/23 04/14/24 metformin 500 mg tablet 500 mg PO BID 01/17/23 10/30/23 valacyclovir 1 gram tablet 1,000 mg PO BID 06/25/23 04/14/24 coenzyme Q10 100 mg capsule (Co 200 mg PO DAILY 10/30/23 10/30/23 Q-10) inositol 500 mg tablet 500 mg PO DAILY 10/30/23 10/30/23 lamotrigine 25 mg tablet (Lamictal) 25 mg PO Q12H 10/30/23 04/14/24 duloxetine 60 mg capsule,delayed mg PO 04/14/24 release lisinopril 10 mg tablet mg 04/14/24 metformin 500 mg tablet,extended mg PO 04/14/24 release 24 hr baclofen 10 mg tablet 10 mg PO TID 04/21/24 04/21/24 meloxicam 15 mg tablet 15 mg PO DAILY 04/21/24 04/21/24 Previous Rx's ?Medication ?Instructions ?Recorded clindamycin HCl 300 mg capsule 300 mg PO Q6H 10 days #40 caps 06/08/24 ibuprofen 800 mg tablet 800 mg PO Q8H PRN pain #20 tabs 06/08/24 Allergies Allergy/AdvReac Type Severity Reaction Status Date / Time amoxicillin Allergy Rash Verified 06/08/24 22:47 cefaclor Allergy Rash Verified 06/08/24 22:47 erythromycin base Allergy Hives Verified 06/08/24 22:47 Review of Systems ROS Narrative A ten point review of systems is negative except as noted above. PFSH PFS Medical History Herpes genitalia ?A60.00 - Herpesviral infection of urogenital system, unspecified (ICD-10) Back pain ?M54.9 - Dorsalgia, unspecified (ICD-10) Arthritis ?M19.90 - Unspecified osteoarthritis, unspecified site (ICD-10) Anemia ?D64.9 - Anemia, unspecified (ICD-10) Depression ?F32.A - Depression, unspecified (ICD-10) Anxiety ?F41.9 - Anxiety disorder, unspecified (ICD-10) COVID-19 ?U07.1 - COVID-19 (ICD-10) Asthma ?J45.909 - Unspecified asthma, uncomplicated (ICD-10) Seizures ?R56.9 - Unspecified convulsions (ICD-10) GERD (gastroesophageal reflux disease) ?K21.9 - Gastro-esophageal reflux disease without esophagitis (ICD-10) Sleep apnea ?G47.30 - Sleep apnea, unspecified (ICD-10) Palpitations ?R00.2 - Palpitations (ICD-10) Prediabetes ?R73.03 - Prediabetes (ICD-10) Hypertension ?I10 - Essential (primary) hypertension (ICD-10) PCOS (polycystic ovarian syndrome) ?E28.2 - Polycystic ovarian syndrome (ICD-10) Abnormal uterine bleeding (AUB) ?N93.9 - Abnormal uterine and vaginal bleeding, unspecified (ICD-10) Menorrhagia ?N92.0 - Excessive and frequent menstruation with regular cycle (ICD-10) Surgical History History of laparoscopy ?Z98.890 - Other specified postprocedural states (ICD-10) History of colposcopy ?Z98.890 - Other specified postprocedural states (ICD-10) History of wisdom tooth extraction ?K08.409 - Partial loss of teeth, unspecified cause, unspecified class (ICD-10) History of cholecystectomy ?Z90.49 - Acquired absence of other specified parts of digestive tract (ICD-10) Family History Other Family history of heart disease Family history of stroke Social History Within the past year, how often did you have a drink containing alcohol: monthly or less Smoking status: Never smoker 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 General: The patient appears well and in no apparent distress. Patient is resting comfortably on cart. Skin: Warm, dry, no pallor noted. There is no rash noted. Head: Normocephalic, atraumatic Eye: Normal conjunctiva, no drainage Ears, Nose, Mouth, and Throat: oral mucosa is moist. Nares patent. Dental caries noted in the left lower dentition. No bleeding or pus present. No swelling to the floor of her mouth and no gingival swelling. No facial swelling or erythema. Both TMs and external canals are normal. Cardiovascular: Regular Rate and Rhythm Respiratory: Patient is in no distress, no accessory muscle use, lungs are clear to auscultation, no wheezing, rales or rhonchi Back: non-tender GI: Nontender Musculoskeletal: The patient has no evidence of calf tenderness, no pitting edema, symmetrical pulses noted bilaterally Neurological: A&O, normal speech Psychiatric: Cooperative Constitutional Vital Signs, click to edit/add: Last Vital Signs Temp 98.2 F 06/08/24 22:38 Pulse 81 06/08/24 22:38 Resp 20 06/08/24 22:38 BP 140/89 06/08/24 22:38 Pulse Ox 100 06/08/24 22:38 O2 Del Method Room Air 06/08/24 22:38 Course Vital Signs Vital signs: Vital Signs Temperature 98.2 F 06/08/24 22:38 Pulse Rate 81 06/08/24 22:38 Respiratory Rate 20 06/08/24 22:38 Blood Pressure 140/89 06/08/24 22:38 Pulse Oximetry 100 06/08/24 22:38 Oxygen Delivery Method Room Air 06/08/24 22:38 Temperature 98.2 F 06/08/24 22:38 Pulse Rate 81 06/08/24 22:38 Respiratory Rate 20 06/08/24 22:38 Blood Pressure 140/89 06/08/24 22:38 Pulse Oximetry 100 06/08/24 22:38 Oxygen Delivery Method Room Air 06/08/24 22:38 MDM - Dental/Oral MDM Narrative Medical decision making narrative: She was started on clindamycin here and prescribed clindamycin and ibuprofen and she will follow-up with her dentist. Treatment diagnosis and follow-up were discussed with the patient. Differential Diagnosis Differential diagnosis: Likely gingival abscess, dental caries, toothache and dental abscess Discharge Plan Discharge Chief Complaint: Dental/Oral Clinical Impression: Dental caries, Odontalgia Patient Disposition: Home, Self-Care Time of Disposition Decision: 23:02 Condition: Good Mode of Transportation: Private Vehicle Prescriptions / Home Meds: New clindamycin HCl 300 mg capsule 300 mg PO Q6H 10 Days Qty: 40 0RF ibuprofen 800 mg tablet 800 mg PO Q8H PRN (Reason: pain) Qty: 20 0RF No Action valacyclovir 1 gram tablet 1,000 mg PO BID inositol 500 mg tablet 500 mg PO DAILY lamotrigine [Lamictal] 25 mg tablet 25 mg PO Q12H coenzyme Q10 [Co Q-10] 100 mg capsule 200 mg PO DAILY gabapentin 300 mg capsule 300 mg PO Q12H PRN (Reason: pain) albuterol sulfate [ProAir HFA] 90 mcg/actuation HFA aerosol inhaler 2 inh inhalation Q6H PRN (Reason: shortness of breath or wheezing) metformin 500 mg tablet 500 mg PO BID baclofen 10 mg tablet 10 mg PO TID meloxicam 15 mg tablet 15 mg PO DAILY lisinopril 10 mg tablet metformin 500 mg tablet extended release 24 hr PO duloxetine 60 mg capsule,delayed release(DR/EC) PO Print Language: Venezuelan Instructions: Toothache (ED) Additional Instructions: Follow-up with your dentist Referrals: CHRIS LOPEZ [Primary Care Provider] - 1 week
[2024-06-08] MEDS: CLINDAMYCIN HCL 150 MG CAPSULE 300 MG PO (23:15)
== END 2024-06-08 23:17 | disposition home or self-care (01) ==
PROVIDERS: Emergency Provider Emergency Medicine; PCP Nurse Practitioner Family
DX: K02.9 Dental caries, unspecified (principal); K08.89 Other specified disorders of teeth and supporting structures
CPT/HCPCS: 99283

== ENCOUNTER 2024-06-15 14:51 | Emergency (ER) | payer OTHER, SELFPAY ==
[2024-06-15 14:58] VITALS: BP 166/102; PULSE 116; TEMP 37.4; O2SAT 96; BMI 57.0
--- OUTSIDE RECORDS SUMMARY | 2024-06-15 15:13 | XMS_ITS | CCD ---
Author Organization [facility] Team Providers Care Slate Cutter Name Role Phone BRENT KINNEY Referring Unavailable [...] Unavailable Celio Mullins Unavailable Manisha Marc Unavailable [phone] ROSITA Marc Primary Care Provider ROSITA Marc Attending Provider DO Celio Mullins Attending Provider [phone] ROSITA Marc Primary Care Provider MD Clinton Frazier Attending Provider ROSITA Marc Attending Provider [phone] ROSITA Marc Primary Care Provider DO Celio [...] Andrius Vytautas Attending Unavailable Garret CROWLEY, Andrius Vytautcortez Attending Unavailable Garret CROWLEY, Andrius Vytautas Attending Unavailable TOBIAS OSCAR Attending Unavailable MELA ANDERSON Attending Unavailable MELA ANDERSON Attending Unavailable ROSITA Marc Primary Care Provider MD Edward Gilmore Attending Provider Manisha Marc Attending Unavailable Denyrbacher, Manisha Admitting Unavailable Rohrbacher, Manisha Primary Care Unavailable Edward Gilmore Admitting Unavailab Edward Lance Attending Unavailab le Rohrbacher, Manisha Primary Care Unavailable Mullins, Celio M Admitting Unavailable Mullins, Celio M Attending Unavailable Diyar, Manisha Primary Care Unavailable Clinton Frazier Admitting Unavailable Clinton Frazier Attending Unavailable Rohrbacher, Manisha Primary Care Unavailable Rohrbacher, Manisha Primary Care Unavailable Mullins, Celio M Admitting Unavailable Mullins, Celio M Attending Unavailable Mullins, Celio M Admitting Unavailable Mullins, Celio M Attending Unavailable Rohrbacher, Manisha Primary Care Unavailable Akil Cox Attending Unavailab Akil Avila Admitting Unavailab le Charlyachetad, [facility] Care Unavailable ROSITA Marcnifer [facility] Care Provider MD Edward Gilmore Attending Provider Allergies Allergy Classification Reported Allergen(s) Allergy Type Date of Onset Reaction(s) Facility (20 sources) Amoxicillin; Translations: [AMOXICILLIN] Drug Allergy 07-08-20 16 [facility] Repository (11 sources) Cefaclor; Translations: [CEFACLOR] Drug Allergy 04-14-20 15 Unknown Reaction, [facility] Repository (19 sources) Erythromycin; Translations: [ERYTHROMYCIN] Drug Allergy 04-14-20 15 [facility] Repository (19 sources) Cefaclor; Translations: [Ceclor] Drug Allergy 04-17-[address] [facility] Repository (10 sources) Erythromycin Drug Allergy 04-17-20 15 Unknown Reaction, [facility] Repository (10 sources) Cephalosporins (Antibiotic); Translations: [Cephalosporins] Allergy to substance 12-10-19 22 Unknown Reaction, Rash [facility] (3 sources) Lactulose; Translations: [lactulose] Drug Allergy 02-12-[address] [facility] (1 source) Erythromycin Drug Allergy 04-21-[address] [facility] Repository Medications Current Medications Medication Drug Class(es) Dates Sig (Normalized) Sig (Original) [id number] 200 actuat albuterol 0.09 mg/actuat metered dose [...] as needed Inhalation every 4 hrs Active Baclofen (1 source) gamma-Aminobutyric Acid-ergic Agonist Start: 06-15-2024 Baclofen Active MG PO June 15, 2024 12:00am cariprazine 1.5 mg oral capsule (2 sources) Atypical Antipsychotic take 1 capsule by mouth every twenty-four hours Vraylar 1.5 MG 1 capsule Orally Once a day Active clindamycin 300 mg oral capsule (1 source) Lincosamide Antibacterial Start: 06-15-2024 Clindamycin Hcl Active MG PO June 15, 2024 12:00am doxycycline hyclate 100 mg oral tablet (3 sources) Tetracycline-class Drug Start: 06-29-2023 take 1 tablet by mouth every twelve hours Doxycycline Hyclate 100 MG 1 tablet Orally Twice a day for 10 day(s) Jun, Active DULoxetine 60 mg delayed release oral capsule (20 sources) Serotonin and Norepinephrine Reuptake Inhibitor Start: 11-26-2023 End: 04-05-2024 take 120 mg by mouth once daily Duloxetine Active 120 MG PO Daily 180 April 05, 2024 1:28pm Start: 10-01-2023 End: [...] 26, 2023 8:33am take 2 capsules by out every twenty-four hours Cymbalta 60 MG 2 capsule Orally Once a day for 90 days Active Cymbalta Active ferrous sulfate 325 mg oral tablet (5 sources) Start: 11-04-2023 End: 04-21-2024 take 325 mg by mouth once daily Ferrous Sulfate Active 325 MG PO Daily 90 April 22, 2024 12:00am gabapentin 300 mg oral capsule (20 sources) Anti-epileptic Agent Start: 02-12-2020 End: 10-01-2023 take 1 capsule by mouth three times daily as needed Gabapentin Active 300 MG PO Three times daily October 01, 2023 1:00am [employer] capsule Orally Once a day PRN; Note: Source Status: RefillPRN; Refills: 0; Provider: Tari Garnett take 1 capsule by mo [facility] once daily as needed Gabapentin 300 MG 1 capsule Orally Once a day PRN for 30 days PRN Active ibuprofen 800 mg oral tablet (1 source) Nonsteroidal Anti-inflammatory Drug Start: 06-15-2024 Ibuprofen Active MG PO June 15, 2024 12:00am lamoTRIgine 25 mg oral tablet (7 sources) Mood Stabilizer, Anti-epileptic Agent Start: 10-01-2023 take 25 mg by mouth twice daily Lamotrigine Active 25 MG PO Twice daily October 01, 2023 1:00am lisinopril 10 mg oral tablet (20 sources) Angiotensin Converting Enzyme Inhibitor Start: 11-26-2023 End: 04-05-2024 take 10 mg by mouth once daily Lisinopril Active 10 MG PO Daily 90 90 April 05, 2024 1:28pm Start: 10-01-2023 [...] Daily PRN Active Melatonin PRN Ac tive meloxicam 15 mg oral tablet (1 source) Nonsteroidal Anti-inflammatory Drug Start: 06-15-2024 Meloxicam Active MG PO June 15, 2024 12:00am 24 hr metFORMIN hydrochloride 500 mg extended [...] / nitrofurantoin, monohydrate 75 mg oral capsule (2 sources) Nitrofuran Antibacterial Start: 06-15-2024 take 1 capsule by mouth every twelve hours at mealtime Nitrofurantoin Monohyd/M-Cryst (Macrobid) 100 mg capsule Active 100 MG PO Every 12 hours 05 22June 15, 2024 12:00am must administer with a meal/food Start: 05-31-2021 take 1 capsule by mo [facility] every twelve hours Macrobid 100 MG 1 cap(s) Orally bid for 5 day(s) May, Active ondansetron 4 mg oral tablet (4 sources) Serotonin-3 Receptor Antagonist Start: 07-07-2023 take 1 tablet by mouth three times daily as needed Zofran 4 MG 1 tablet Orally tid prn ODT Jun, Active phenazopyridine hydrochloride 200 mg oral tablet (2 sources) Start: 06-15-2024 take 1 tablet by mouth three times daily Phenazopyridine (Pyridium) 200 mg tablet Active 200 MG PO Three times daily 04 20June 15, 2024 12:00am Start: 05-31-2021 take 1 tablet by miranda th every eight hours Pyridium 200 MG 1 tablet after meals Orally Three times a day for 2 day(s) May, Active Completed/Discontinued Medications Medication Drug Class(es) Dates Sig (Normalized) Sig (Original) ARIPiprazole 5 mg oral tablet (11 sources) Atypical Antipsychotic Start: 03-05-2020 End: 12-07-2021 take 5 mg by mouth once daily Aripiprazole Discontinued 5 MG PO Daily March 05, 2020 12:00am December 07, 2021 10:45am Savanna Corrales Active 24 hr buPROPion hydrochloride 150 mg extended release oral tablet (9 sources) Aminoketone Start: 02-12-2020 End: 02-17-2020 take 150 mg by mouth once daily Bupropion Hcl Discontinued 150 MG PO Daily February 12, 2020 12:00am February 17, 2020 11:57am citalopram 40 mg oral tablet (18 sources) Serotonin Reuptake Inhibitor Start: 02-12-2020 End: 02-17-2020 take 40 mg by mouth once daily Citalopram Discontinued 40 MG PO Daily February 12, 2020 12:00am February 17, 2020 11:57am Start: 02-12-2020 End: 02-12-2020 Citalopram Discontinued MG T ABLET February 12, 2020 12:00am February 12, 2020 8:18pm fluticasone propionate 0.05 mg/actuat metered dose nasal spray (10 sources) Corticosteroid Start: 10-01-2023 End: 11-26-2023 Fluticasone [...] succinate 50 mg extended release oral tablet (9 sources) beta-Adrenergic Ann Start: 02-12-2020 End: 12-07-2021 take 50 mg by mouth once daily Metoprolol Succinate Discontinued 50 MG PO Daily February 12, 2020 12:00am December 07, 2021 10:46am niacin 500 mg oral tablet (4 sources) Nicotinic Acid Start: 11-26-2023 End: 04-21-2024 [...] May, Active ubidecarenone 200 mg oral capsule (4 sources) Start: 11-26-2023 End: 04-21-2024 Coenzyme Q10 [...] Translations: [Other specified counseling] Onset: 08-19-2023 Episodic Anxiety disorders (14 sources) Anxiety; Translations: [Anxiety disorder, unspecified] Chronic Asthma (20 sources) Exacerbation of intermittent asthma; Translations: [Mild intermittent asthma with (acute) exacerbation] Chronic Cardiac dysrhythmias (8 sources) Palpitations; Translations: [Palpitations] 11-03-2023 Episodic Chronic obstructive pulmonary disease and bronchiectasis (5 sources) Acute exacerbation of chronic bronchitis; Translations: [Bronchitis, chronic with acute exacerbation] Chronic Chronic obstructive pulmonary disease and bronchiectasis (1 source) Bronchitis, not specified as acute or chronic Episodic Conditions associated with dizziness or vertigo (8 sources) Lightheadedness; Translations: [Dizziness and giddiness] 11-03-2023 Episodic Deficiency and other anemia (1 source) Iron deficiency anemia; Translations: [Iron deficiency anemia, unspecified] 06-08-2024 Episodic Diabetes mellitus without complication (13 sources) Impaired fasting glucose; Translations: [Prediabetes] Onset: 10-01-2023 Episodic Epilepsy; convulsions (11 sources) Seizure disorder; Translations: [Epilepsy, unspecified, not intractable, without status epilepticus] Onset: 10-08-2023 Chronic Essential hypertension (20 sources) Essential hypertension; Translations: [Essential (primary) hypertension] Onset: 07-01-2023 Chronic Headache; including migraine (20 sources) Refractory migraine without aura; Translations: [Migraine without aura, intractable, without status migrainosus] Chronic Immunizations and screening for infectious disease (7 sources) Contact with and (suspected) exposure to other viral communicable diseases; Translations: [Encounter for screening for human papillomavirus (HPV)] Onset: 06-17-2021 Resolved: 07-06-2021 Episodic Malaise and fatigue (2 sources) Fatigue; Translations: [Other fatigue] 04-22-2024 Episodic Menstrual disorders (17 sources) Amenorrhea; Translations: [Amenorrhea, unspecified] Onset: 03-07-2022 Chronic Mood disorders (20 sources) Recurrent major depression in partial remission; Translations: [Major depressive disorder, recurrent, in partial remission] Chronic Nausea and vomiting (1 source) Nausea with vomiting, unspecified Episodic Nutritional deficiencies (4 sources) Iron deficiency; Translations: [Iron deficiency] 11-04-2023 Episodic Other endocrine disorders (20 sources) Polycystic ovary syndrome; Translations: [Polycystic ovarian syndrome] 10-01-2023 Chronic Other endocrine disorders (9 sources) Polycystic ovarian syndrome; Translations: [Polycystic ovaries] Onset: 07-01-2023 Chronic Other female genital disorders (4 sources) Abnormal uterine and vaginal bleeding, unspecified; Translations: [ABNORMAL UTERINE VAGINAL BLEED UNS] Onset: 11-26-2022 Chronic Other gastrointestinal disorders (1 source) Diarrhea, unspecified Episodic Other lower respiratory disease (1 source) Snoring; Translations: [Snoring] 04-22-2024 Episodic Other lower respiratory disease (1 source) Apnea; Translations: [Apnea, not elsewhere classified] 04-22-2024 Episodic Other lower respiratory disease (1 source) Apnea, not elsewhere classified; Translations: [Apnea] 04-21-2024 Episodic Other lower respiratory disease (1 source) Snoring; Translations: [Other respiratory abnormalities] 04-21-2024 Episodic Other nervous system disorders (13 sources) Chronic pain; Translations: [Other chronic pain] Chronic Other nervous system disorders (1 source) Other chronic pain Chronic Other nervous system disorders (2 sources) Aphasia; Translations: [Aphasia] 04-21-2024 Chronic Other nervous system disorders (2 sources) Neuropathy; Translations: [Polyneuropathy, unspecified] 04-12-2024 Chronic Other nervous system disorders (2 sources) Aphasia; Translations: [Aphasia] 04-21-2024 Chronic Other nervous system disorders (7 sources) Paresthesia of skin; Translations: [Paresthesia of both hands] Episodic Other nutritional; endocrine; and metabolic disorders (13 sources) Body mass index 30+ - obesity; Translations: [Body mass index (BMI) 33.0-33.9, adult] Chronic Other nutritional; endocrine; and metabolic disorders (13 sources) Morbid obesity; Translations: [Morbid (severe) obesity due to excess calories] 04-22-2024 Chronic Other nutritional; endocrine; and metabolic disorders (18 sources) Insulin resistance; Translations: [Metabolic syndrome] 10-01-2023 Chronic Other nutritional; endocrine; and metabolic disorders (10 sources) Morbid (severe) obesity due to excess [...] 06-17-2021 Resolved: 06-17-2021 Episodic Residual codes; unclassified (2 sources) Amnesia; Translations: [Other amnesia] 04-21-2024 Episodic Residual codes; unclassified (4 sources) Personal history of other specified conditions; Translations: [History of seizure] 04-21-2024 Episodic Residual codes; unclassified (2 sources) Other amnesia; Translations: [Memory loss] 04-21-2024 Episodic Spondylosis; intervertebral disc disorders; other back problems (19 sources) Sacroiliitis, not elsewhere classified; Translations: [Other intervertebral disc degeneration, lumbar region] Onset: 11-08-2022 Chronic Unclassified (1 source) Morbid (severe) obesity due to excess calories; Translations: [Morbid (severe) obesity due to excess calories] Onset: 10-01-2023 Unclassified (1 source) Food insecurity; Translations: [Food insecurity] Onset: 10-01-2023 Unclassified (1 source) Encounter for other specified aftercare; Translations: [Encounter for other specified aftercare] Onset: 07-19-2023 Urinary tract infections (3 sources) Urinary tract infection, site not specified; Translations: [Acute urinary tract infection] Onset: 05-31-2021 Resolved: 05-31-2021 Episodic Viral infection (8 sources) Viral infection, unspecified; Translations: [Herpes simplex] [...] (1 source) Low back pain, unspecified M54.50 Viral infection (1 source) COVID-19 Onset: 07-06-2021 Resolved: 07-06-2021 Results Test Name Value Interpretation Reference Range Facility Iron binding capacity [Mass/ volume] in Serum or Plasmaon 06-07-2024 Iron binding capacity [Mass/Vol] 411.0 ug/dL 250.0-450.[address] [facility] Iron saturation [Mass Fracti on] in Serum or Plasmaon 06-07-2024 Iron saturation [Mass fraction] 13.4 % [facility] Laboratory - Chemistry and C hemistry - challengeon 06-07-2024 Iron [Mass/Vol] 55.0 ug/dL 50.0-170.[address] [facility] Iron binding capacity [Mass/ volume] in Serum or Plasmaon 04-21-2024 Iron binding capacity [Mass/Vol] 495.0 ug/dL High 250.0-450.[address] [facility] Iron saturation [Mass Fracti on] in Serum or Plasmaon 04-21-2024 Iron saturation [Mass fraction] 15.4 % [facility] Laboratory - Chemistry and C hemistry - challengeon 04-21-2024 Cobalamin (Vitamin B12) [Mass/Vol] 815 pg/mL 232-[address] [facility] Comment on above: Performed at: [address] [id number] Director: Cassius Zhong PhD, Phone: [phone] Iron [Mass/Vol] 76.0 ug/dL 50.0-170.[address] [facility] TSH Qn 2.211 m[IU]/L 0.358-3.[address] [facility] Basophils Auto (Bld) [#/Vol] on 04-12-2024 Basophils (Bld) [#/Vol] 0.1 10 3/uL 0.0-0.[address] [facility] Basophils/100 WBC Auto (Bld) on 04-12-2024 Basophils/100 WBC (Bld) 0.6 % 0.2-2.0 F [facility] Buprenorphine [Presence] in Urineon 04-12-2024 Buprenorphine Ql (U) Negative NEGATIVE [facility] Comment on above: DRUG CLASS TEST SYST [...] (Bld) 1.0 % 0.9-7.[address] [facility] Erythrocyte distribution wid th Auto (RBC) [Ratio]on 04-12-2024 Erythrocyte distribution width (RBC) [Ratio] 17.4 % High 11.0-15.[address] [facility] Estimated glomerular filtrat ion rate (GFR) non- Americanon 04-12-2024 GFR/1.73 sq M.predicted among non-blacks MDRD (S/P/Bld) [Vol rate/Area] mL/min/{1.73_m2} >=[address] [facility] Globulin Calc (S) [Mass/Vol] on 04-12-2024 Globulin (S) [Mass/Vol] 4.1 g/dL F [facility] HCG ( test) Marco Ai d Ql (U)on 04-12-2024 HCG ( test) Ql (U) Negative NEGATIVE [facility] Hematocrit Auto (Bld) [Volum e fraction]on 04-12-2024 Hematocrit (Bld) [Volume fraction] 37.9 % 36.0-48.[address] [facility] Hemoglobin [Mass/volume] in Bloodon 04-12-2024 Hemoglobin (Bld) [Mass/Vol] 11.6 g/dL Low 12.0-16.[address] [facility] Laboratory - Chemistry and C hemistry - challengeon 04-12-2024 Albumin [Mass/Vol] 3.3 g/dL Low 3.4-5.0 [facility] ALP [Catalytic activity/Vol] 75 U/L 46-[address] [facility] ALT [Catalytic activity/Vol] 36 U/L 14-[address] [facility] AST [Catalytic activity/Vol] 19 U/L 15-[address] [facility] Bilirubin [Mass/Vol] 0.3 mg/dL 0.2-1.0 [facility] Calcium [Mass/Vol] 8.6 mg/dL 8.5-10.1 [facility] Chloride [Moles/Vol] 101 mmol/L 98-107 [facility] CO2 [Moles/Vol] 28.7 mmol/L 21.0-32.0 [facility] Creatinine [Mass/Vol] 0.70 mg/dL 0.55-1.02 [facility] GFR/1.73 sq M.predicted MDRD (S/P/Bld) [Vol rate/Area] mL/min/{1.73_m2} >=[address] [facility] Glucose [Mass/Vol] 103 mg/dL 74-106 [facility] Potassium [Moles/Vol] 3.7 mmol/L 3.5-5.1 [facility] Protein [Mass/Vol] 7.4 g/dL 6.4-8.2 [facility] Sodium [Moles/Vol] 136 mmol/L 136-145 [facility] Urea nitrogen [Mass/Vol] 10.0 mg/dL 7.0-18.[address] [facility] Urea nitrogen/Creatinine [Mass ratio] 14.3 mg/mg [facility] Bilirubin Ql (U) Negative NEGATIVE [facility] Glucose (U) [Mass/Vol] Negative NEGATIVE [facility] Ketones Ql (U) Negative NEGATIVE [facility] pH (U) 6.0 [pH] 5.0-9.[address] [facility] Specific gravity (U) [Rel density] >=1.030 Abnormal 1.005-1.[address] [facility] Urobilinogen Qn (U) 0.2 {Tamiko'U}/dL 0.2-1.[address] [facility] Laboratory - Drug toxicology on 04-12-2024 Amphetamines Ql (U) Negative NEGATIVE [facility] Benzodiazepines Ql (U) Negative NEGATIVE [facility] Cocaine Ql (U) Negative NEGATIVE [facility] Opiates Ql (U) Negative NEGATIVE [facility] Phencyclidine Ql (U) Negative NEGATIVE [facility] Laboratory - Hematology and Cell countson 04-12-2024 Immature granulocytes/100 WBC (Bld) 0.3 % 0.0-0.[address] [facility] Laboratory - Specimen inform ationon 04-12-2024 Appearance (U) CLEAR CLEAR [facility] Color (U) YELLOW YELLOW [facility] Laboratory - Urinalysison Leukocyte esterase Test strip Ql (U) Negative NEGATIVE [facility] Mucus Ql (Urine sed) TRACE Abnormal NONE SEEN [facility] Nitrite Ql (U) Negative NEGATIVE [facility] Protein Ql (U) Negative NEG/TRACE [facility] Leukocytes [#/volume] correc carmelita for nucleated erythrocytes in Blood by Automated counon 04-12-2024 WBC corrected for nucl RBC Auto (Bld) [#/Vol] 9.9 10 3/uL 4.0-11.[address] [facility] Lymphocytes Auto (Bld) [#/Vo l]on 04-12-2024 Lymphocytes (Bld) [#/Vol] 3.5 10 3/uL 1.2-3.[address] [facility] Lymphocytes/100 WBC Auto (Bl d)on 04-12-2024 Lymphocytes/100 WBC (Bld) 35.5 % 20.5-60.[address] [facility] MCH Auto (RBC) [Entitic mass ]on 04-12-2024 MCH (RBC) [Entitic mass] 24.5 pg Low 26.7-34.[address] [facility] MCHC Auto (RBC) [Mass/Vol]on 04-12-2024 MCHC (RBC) [Mass/Vol] 30.6 g/dL 29.9-35.2 [facility] MCV Auto (RBC) [Entitic vol] on 04-12-2024 MCV (RBC) [Entitic vol] 80.1 fL Low 81.0-99.0 [facility] Methadone [Presence] in Urin e by Screen methodon 04-12-2024 Methadone Screen Ql (U) Negative NEGATIVE [facility] Monocytes Auto (Bld) [#/Vol] on 04-12-2024 Monocytes (Bld) [#/Vol] 0.5 10 3/uL 0.3-0.[address] [facility] Monocytes/100 WBC Auto (Bld) on 04-12-2024 Monocytes/100 WBC (Bld) 4.7 % 1.7-12.0 [facility] Neutrophils Auto (Bld) [#/Vo l]on 04-12-2024 Neutrophils (Bld) [#/Vol] 5.7 10 3/uL 1.4-6.[address] [facility] Neutrophils/100 WBC Auto (Bl d)on 04-12-2024 Neutrophils/100 WBC (Bld) 57.9 % 43.0-75.[address] [facility] No Panel Informationon 04-12 Acetaminophen Level <2.0 ug/mL Low 10.0-30.0 [facility] Eosinophils # (Auto) 0.1 10 3/uL 0.0-0.7 [facility] Ethyl Alcohol Level <3 mg/dL [facility] Comment on above: NOTE: 80 mg/dl is th e legal limit for a blood alcohol level Immature Granulocyte # (Auto) 0.03 10 3/uL 0.00-0.[address] [facility] Salicylates Level <2.8 mg/dL <=19.9 [facility] Urine Bacteria SMALL #/HPF Abnormal NONE SEEN [facility] Urine Barbiturates Screen Negative NEGATIVE [facility] Urine Culture Reflexed YES [facility] Urine Marijuana (THC) Screen Negative NEGATIVE [facility] Urine Methamphetamines Screen Negative NEGATIVE [facility] Urine Occult Blood Negative NEGATIVE [facility] Urine Other Casts NONE SEEN #/LPF NONE SEEN [facility] Urine Other Crystals None Seen #/HPF None Seen [facility] Urine RBC 0-2 #/HPF 0-[address] [facility] Urine Squamous Epithelial Cells FEW #/LPF Abnormal NONE/RARE [facility] Urine Transitional Epithelial Cells RARE #/LPF Abnormal NONE SEEN [facility] Urine WBC 2-5 #/HPF Abnormal NONE SEEN [facility] Platelet mean volume Auto (B ld) [Entitic vol]on 04-12-2024 Platelet mean volume (Bld) [Entitic vol] 10.2 fL 9.5-13.[address] [facility] Platelets Auto (Bld) [#/Vol] on 04-12-2024 Platelets (Bld) [#/Vol] 299 10 3/uL 150-[address] [facility] RBC Auto (Bld) [#/Vol]on RBC (Bld) [#/Vol] 4.73 10 6/uL 4.20-5.40 [facility] Serum or plasma albumin/glob ulin mass ratioon 04-12-2024 Albumin/Globulin [Mass ratio] 0.8 {ratio} [facility] Serum or plasma anion gap de terminationon 04-12-2024 Anion gap [Moles/Vol] 10.0 mmol/L [facility] Urine tricyclic antidepressa nt measurementon 04-12-2024 Tricyclic antidepressants (U) [Mass/Vol] Negative NEGATIVE [facility] oxyCODONE+oxyMORphone [Prese nce] in Urine by Screen methodon 04-12-2024 oxyCODONE+oxyMORphone Screen Ql (U) Negative NEGATIVE [facility] Basophils Auto (Bld) [#/Vol] on 11-03-2023 Basophils (Bld) [#/Vol] 0.0 10 3/uL 0.0-0.[address] [facility] Basophils/100 WBC Auto (Bld) on 11-03-2023 Basophils/100 WBC (Bld) 0.5 % 0.2-2.0 [facility] Eosinophils/100 WBC Auto (Bl d)on 11-03-2023 Eosinophils/100 WBC (Bld) 1.4 % 0.9-7.[address] [facility] Erythrocyte distribution wid th Auto (RBC) [Ratio]on 11-03-2023 Erythrocyte distribution width (RBC) [Ratio] 16.3 % 11.0-15.[address] [facility] Estimated glomerular filtrat ion rate (GFR) non- Americanon 11-03-2023 GFR/1.73 sq M.predicted among non-blacks MDRD (S/P/Bld) [Vol rate/Area] mL/min/{1.73_m2} >=[address] [facility] Globulin Calc (S) [Mass/Vol] on 11-03-2023 Globulin (S) [Mass/Vol] 4.0 g/dL [facility] [facility] Hematocrit Auto (Bld) [Volum e fraction]on 11-03-2023 Hematocrit (Bld) [Volume fraction] 26.1 % 36.0-48.[address] [facility] Hemoglobin [Mass/volume] in Bloodon 11-03-2023 Hemoglobin (Bld) [Mass/Vol] 7.8 g/dL 12.0-16.[address] [facility] Human papilloma virus 16+18+ 31+33+35+39+45+51+52+56+58+59+66+68 DNA [Presence] in [place] 11-03-2023 HPV 16+18+31+33+35+39+45+51 +52+56+58+59+66+68 DNA Probe+sig amp Ql (Cvx) Negative Negative [facility] Comment on above: This nucleic acid am plification test detects fourteen high-risk HPV types (16,18,31,33,35,39,45,51,52,56,58,59,66,68)without differentiation.Performed at: =[address], [place] [id number] Director: Monse Cardona MD, Phone: [phone] at: [facility] [address] Yasir Mccarty, [place] [id number] Director: Monse Cardona MD, Phone: [phone] Iron binding capacity [Mass/ volume] in Serum or Plasmaon 11-03-2023 Iron binding capacity [Mass/Vol] 512.0 ug/dL 250.0-450.[address] [facility] Iron saturation [Mass Fracti on] in Serum or Plasmaon 11-03-2023 Iron saturation [Mass fraction] 2.7 % [facility] Laboratory - Chemistry and C hemistry - challengeon 11-03-2023 Albumin [Mass/Vol] 3.1 g/dL 3.4-5.0 [facility] ALP [Catalytic activity/Vol] 63 U/L 46-[address] [facility] ALT [Catalytic activity/Vol] 29 U/L 14-[address] [facility] AST [Catalytic activity/Vol] 18 U/L 15-[address] [facility] Bilirubin [Mass/Vol] 0.2 mg/dL 0.2-1.0 [facility] Calcium [Mass/Vol] 8.7 mg/dL 8.5-10.1 [facility] Chloride [Moles/Vol] 102 mmol/L 98-107 [facility] CO2 [Moles/Vol] 27.6 mmol/L 21.0-32.0 [facility] Creatinine [Mass/Vol] 0.70 mg/dL 0.55-1.02 [facility] Ferritin [Mass/Vol] 6.0 ng/mL 8.0-252.0 [facility] GFR/1.73 sq M.predicted MDRD (S/P/Bld) [Vol rate/Area] mL/min/{1.73_m2} >=[address] [facility] Glucose [Mass/Vol] 103 mg/dL 74-106 [facility] Iron [Mass/Vol] 14.0 ug/dL 50.0-170.[address] [facility] Potassium [Moles/Vol] 3.8 mmol/L 3.5-5.1 [facility] Protein [Mass/Vol] 7.1 g/dL 6.4-8.2 [facility] Sodium [Moles/Vol] 139 mmol/L 136-145 [facility] Urea nitrogen [Mass/Vol] 11.0 mg/dL 7.0-18.[address] [facility] Urea nitrogen/Creatinine [Mass ratio] 15.7 mg/mg [facility] Laboratory - Hematology and Cell countson 11-03-2023 Immature granulocytes/100 WBC (Bld) 0.4 % 0.0-0.[address] [facility] Leukocytes [#/volume] correc carmelita for nucleated erythrocytes in Blood by Automated counon 11-03-2023 WBC corrected for nucl RBC Auto (Bld) [#/Vol] 7.4 10 3/uL 4.0-11.[address] [facility] Lymphocytes Auto (Bld) [#/Vo l]on 11-03-2023 Lymphocytes (Bld) [#/Vol] 2.5 10 3/uL 1.2-3.[address] [facility] Lymphocytes/100 WBC Auto (Bl d)on 11-03-2023 Lymphocytes/100 WBC (Bld) 33.6 % 20.5-60.[address] [facility] MCH Auto (RBC) [Entitic mass ]on 11-03-2023 MCH (RBC) [Entitic mass] 24.8 pg 26.7-34.[address] [facility] MCHC Auto (RBC) [Mass/Vol]on 11-03-2023 MCHC (RBC) [Mass/Vol] 29.9 g/dL 29.9-35.2 [facility] MCV Auto (RBC) [Entitic vol] on 11-03-2023 MCV (RBC) [Entitic vol] 82.9 fL 81.0-99.0 [facility] Monocytes Auto (Bld) [#/Vol] on 11-03-2023 Monocytes (Bld) [#/Vol] 0.4 10 3/uL 0.3-0.[address] [facility] Monocytes/100 WBC Auto (Bld) on 11-03-2023 Monocytes/100 WBC (Bld) 5.6 % 1.7-12.0 [facility] Neutrophils Auto (Bld) [#/Vo l]on 11-03-2023 Neutrophils (Bld) [#/Vol] 4.3 10 3/uL 1.4-6.[address] [facility] Neutrophils/100 WBC Auto (Bl d)on 11-03-2023 Neutrophils/100 WBC (Bld) 58.5 % 43.0-75.[address] [facility] No Panel Informationon 11-02 Eosinophils # (Auto) 0.1 10 3/uL 0.0-0.7 [facility] Immature Granulocyte # (Auto) 0.03 10 3/uL 0.00-0.[address] [facility] HPV High Risk Other Comment Note . [facility] Comment on above: TESTS RESULT FLAG UN ITS REF RANGE LAB -DIAGNOSIS: 02 NEGATIVE FOR INTRAEPITHELIAL LESION OR MALIGNANCY.Specimen adequacy: 02 Satisfactory for evaluation. Endocervical and/or squamous metaplastic cells (endocervical component) are present.Performed by: Mikhail Escalante, Nurse Discharge Planner (ASCP). 02Note: Note 02 The Pap smear [...] Low,>-Panic High,A-Abnormal,AA-Critical Abnormal ------Performed at:02 WB [facility] [address] [facility] [address] Monse Cardona MD, Reference Lab Test Patient Age Note . [facility] Comment on above: TESTS RESULT FLAG UN ITS REF RANGE LAB - Clinician Provided Cytology Information Source.............Cervix;Endocervix No. of containers..01 ThinPrep VialAge Algo ACOG Elise... 30-65 01 FLAG LEGEND: L-Low Normal,H-High Normal,LL-Alert Low,HH-Alert High <-Panic Low,>-Panic High,A-Abnormal,AA-Critical Abnormal ------Performed at:01 =G [facility] [place] [address] [facility] [address] Monse Cardona MD, Platelet mean volume Auto (B ld) [Entitic vol]on 11-03-2023 Platelet mean volume (Bld) [Entitic vol] 9.6 fL 9.5-13.[address] [facility] Platelets Auto (Bld) [#/Vol] on 11-03-2023 Platelets (Bld) [#/Vol] 323 10 3/uL 150-[address] [facility] RBC Auto (Bld) [#/Vol]on RBC (Bld) [#/Vol] 3.15 10 6/uL 4.20-5.40 [facility] Serum or plasma albumin/glob ulin mass ratioon 11-03-2023 Albumin/Globulin [Mass ratio] 0.8 {ratio} [facility] Serum or plasma anion gap de terminationon 11-03-2023 Anion gap [Moles/Vol] 13.2 mmol/L [facility] Basophils Auto (Bld) [#/Vol] on 10-30-2023 Basophils (Bld) [#/Vol] 0.0 10 3/uL 0.0-0.[address] [facility] Basophils/100 WBC Auto (Bld) on 10-30-2023 Basophils/100 WBC (Bld) 0.6 % 0.2-2.0 [facility] Eosinophils/100 WBC Auto (Bl d)on 10-30-2023 Eosinophils/100 WBC (Bld) 1.2 % 0.9-7.[address] [facility] Erythrocyte distribution wid th Auto (RBC) [Ratio]on 10-30-2023 Erythrocyte distribution width (RBC) [Ratio] 16.6 % 11.0-15.[address] [facility] Estimated glomerular filtrat ion rate (GFR) non- Americanon 10-30-2023 GFR/1.73 sq M.predicted among non-blacks MDRD (S/P/Bld) [Vol rate/Area] mL/min/{1.73_m2} >=[address] [facility] HCG ( test) IA.rapi d Ql (U)on 10-30-2023 HCG ( test) Ql (U) Negative NEGATIVE [facility] Hematocrit Auto (Bld) [Volum e fraction]on 10-30-2023 Hematocrit (Bld) [Volume fraction] 26.6 % 36.0-48.[address] [facility] Hemoglobin [Mass/volume] in Bloodon 10-30-2023 Hemoglobin (Bld) [Mass/Vol] 7.9 g/dL 12.0-16.[address] [facility] Laboratory - Chemistry and C hemistry - challengeon 10-30-2023 Calcium [Mass/Vol] 8.5 mg/dL 8.5-10.1 [facility] Chloride [Moles/Vol] 101 mmol/L 98-107 [facility] CO2 [Moles/Vol] 28.8 mmol/L 21.0-32.0 [facility] Creatinine [Mass/Vol] 0.62 mg/dL 0.55-1.02 [facility] GFR/1.73 sq M.predicted MDRD (S/P/Bld) [Vol rate/Area] mL/min/{1.73_m2} >=[address] [facility] Glucose [Mass/Vol] 104 mg/dL 74-106 [facility] Potassium [Moles/Vol] 4.0 mmol/L 3.5-5.1 [facility] Sodium [Moles/Vol] 137 mmol/L 136-145 [facility] Urea nitrogen [Mass/Vol] 8.0 mg/dL 7.0-18.[address] [facility] Urea nitrogen/Creatinine [Mass ratio] 12.9 mg/mg [facility] Laboratory - Hematology and Cell countson 10-30-2023 Immature granulocytes/100 WBC (Bld) 0.4 % 0.0-0.[address] [facility] Leukocytes [#/volume] correc carmelita for nucleated erythrocytes in Blood by Automated counon 10-30-2023 WBC corrected for nucl RBC Auto (Bld) [#/Vol] 7.3 10 3/uL 4.0-11.[address] [facility] Lymphocytes Auto (Bld) [#/Vo l]on 10-30-2023 Lymphocytes (Bld) [#/Vol] 2.2 10 3/uL 1.2-3.[address] [facility] Lymphocytes/100 WBC Auto (Bl d)on 10-30-2023 Lymphocytes/100 WBC (Bld) 30.2 % 20.5-60.[address] [facility] MCH Auto (RBC) [Entitic mass ]on 10-30-2023 MCH (RBC) [Entitic mass] 25.0 pg 26.7-34.[address] [facility] MCHC Auto (RBC) [Mass/Vol]on 10-30-2023 MCHC (RBC) [Mass/Vol] 29.7 g/dL 29.9-35.2 [facility] MCV Auto (RBC) [Entitic vol] on 10-30-2023 MCV (RBC) [Entitic vol] 84.2 fL 81.0-99.0 [facility] Monocytes Auto (Bld) [#/Vol] on 10-30-2023 Monocytes (Bld) [#/Vol] 0.3 10 3/uL 0.3-0.[address] [facility] Monocytes/100 WBC Auto (Bld) on 10-30-2023 Monocytes/100 WBC (Bld) 3.7 % 1.7-12.0 [facility] Neutrophils Auto (Bld) [#/Vo l]on 10-30-2023 Neutrophils (Bld) [#/Vol] 4.6 10 3/uL 1.4-6.[address] [facility] Neutrophils/100 WBC Auto (Bl d)on 10-30-2023 Neutrophils/100 WBC (Bld) 63.9 % 43.0-75.[address] [facility] No Panel Informationon 10-29 Eosinophils # (Auto) 0.1 10 3/uL 0.0-0.7 [facility] Immature Granulocyte # (Auto) 0.03 10 3/uL 0.00-0.[address] [facility] Platelet mean volume Auto (B ld) [Entitic vol]on 10-30-2023 Platelet mean volume (Bld) [Entitic vol] 9.4 fL 9.5-13.[address] [facility] Platelets Auto (Bld) [#/Vol] on 10-30-2023 Platelets (Bld) [#/Vol] 264 10 3/uL 150-[address] [facility] RBC Auto (Bld) [#/Vol]on RBC (Bld) [#/Vol] 3.16 10 6/uL 4.20-5.40 [facility] Serum or plasma anion gap de terminationon 10-30-2023 Anion gap [Moles/Vol] 11.2 mmol/L [facility] MR head/brain wo/w conon MR head/brain wo/w con [facility] Main [place] [address] [place] [address] MRI Report Signed Patient: Ashly Mehta MR#: [id number] 8 : 1990 Acct:[id number] Age/Sex: 33 / F ADM Date: 10/08/23 Loc: MR Room: Type: [facility] Attending Dr: Akil Cox DO Copies to: [...] Ivan Holliday M.D.10/08/2023 4:38 PM Dictation Location: [place] [address] Transcribed By: [facility] 10/08/23 8907 Dictated By: Ivan Holliday II, MD 10/08/23 1630 Signed By: 10/08/23 1638 Normal [facility] HCG ( test) IAcamden d Ql (U)on 10-06-2023 HCG ( test) Ql (U) Negative NEGATIVE [facility] COVID + FLU Quick Testingon 07-07-2023 SARS-CoV-2 (COVID-19) RNA SURI+probe Ql (Unsp spec) Negative [facility] [employer] Other COVID + FLU Quick Testing Negative [facility] [employer] Other Alanine aminotransferase [En zymatic activity/volume] in Serum or PlasmaOrdered By: Celio Mullins on 07-03-2023 ALT [Catalytic activity/Vol] 22 U/L Normal 7-[address] [facility] Comment on above: Performed By: #### L IPID, CMP #### [facility] [address] [place] [address] [place] Albumin [Mass/volume] in Ser um or Plasma by Bromocresol green (BCG) dye binding methoOrdered By: Celio Mullins on 07-03-2023 Albumin BCG dye [Mass/Vol] 4.4 g/dL 3.5-5.[address] [facility] Alkaline phosphatase [Enzyma tic activity/volume] in Serum or PlasmaOrdered By: Celio Mullins on 07-03-2023 ALP [Catalytic activity/Vol] 68 U/L Normal 34-[address] [facility] Comment on above: Performed By: #### L IPID, CMP #### [facility] [address] [place] [id number] [place] Aspartate aminotransferase [ Enzymatic activity/volume] in Serum or PlasmaOrdered By: Celio Mullins on 07-03-2023 AST [Catalytic activity/Vol] 18 U/L Normal 13-[address] [facility] Comment on above: Performed By: #### L IPID, CMP #### [facility] [address] [place] [id number] [place] Bilirubin.total [Mass/volume ] in Serum or PlasmaOrdered By: Celio Mullins on 07-03-2023 Bilirubin [Mass/Vol] 0.4 mg/dL Normal 0.3-1.0 [facility] Comment on above: Performed By: #### L IPID, CMP #### [facility] [address] [place] [address] [place] Calcium [Mass/volume] in Ser um or PlasmaOrdered By: Celio Mullins on 07-03-2023 Calcium [Mass/Vol] 9.4 mg/dL Normal 8.6-10.3 [facility] Comment on above: Performed By: #### L IPID, CMP #### [facility] [address] Carbon dioxide, total [Moles /volume] in Serum or PlasmaOrdered By: Celio Mullins on 07-03-2023 CO2 [Moles/Vol] 30.1 mmol/L Normal 21.0-31.0 [facility] Comment on above: Performed By: #### L IPID, CMP #### [facility] [address] [place] [address] [place] Chloride [Moles/volume] in S marta or PlasmaOrdered By: Celio Mullins on 07-03-2023 Chloride [Moles/Vol] 105 mmol/L Normal 98-107 [facility] Comment on above: Performed By: #### L IPID, CMP #### [facility] [address] Cholesterol [Mass/volume] in Serum or PlasmaOrdered By: Celio Mullins on 07-03-2023 Cholesterol [Mass/Vol] 126 mg/dL Low 140-200 [facility] Comment on above: Chol less than 200 m g/dl low riskChol 201-239 mg/dl borderline riskChol 240 mg/dl and greater high risk Result Comment: Chol less than 200 mg/dl low risk Chol 201-239 mg/dl borderline risk Chol 240 mg/dl and greater high risk Performed By: #### L IPID, CMP #### [facility] [address] [place] [address] [place] Cholesterol in LDL Calc [Mas s/Vol]Ordered By: Celio Mullins on 07-03-2023 Cholesterol in LDL [Mass/Vol] 69 mg/dL 0-[address] [facility] Comment on above: LDL ATP III CLASSIFI CATIONLDL less than 100 mg/dL OptimalLDL 100-129 mg/dL Near or above optimalLDL 130-159 mg/dL Borderline highLDL 160-189 mg/dL HighLDL greater than 189 mg/dL Very high Cholesterol in VLDL Calc [Ma ss/Vol]Ordered By: Celio Mullins on 07-03-2023 Cholesterol in VLDL [Mass/Vol] 18 mg/dL [facility] Comprehensive Metabolic Pane landon 07-03-2023 Albumin [Mass/Vol] 4.4 g/dL Normal 3.5-5.7 [facility] Comment on above: Performed By: #### L IPID, CMP #### [facility] [address] [place] [address] [place] GFR/1.73 sq M.predicted MDRD (S/P/Bld) [Vol rate/Area] mL/min/{1.73_m2} Normal [facility] Comment on above: Performed By: #### L IPID, CMP #### [facility] [address] [place] [id number] [place] Creatinine [Mass/volume] in Serum or PlasmaOrdered By: Celio Mullins on 07-03-2023 Creatinine [Mass/Vol] 0.63 mg/dL Normal 0.60-1.20 [facility] Comment on above: Performed By: #### L IPID, CMP #### [facility] [address] [place] [id number] [place] Glucose [Mass/volume] in Ser um or PlasmaOrdered By: Celio Mullins on 07-03-2023 Glucose [Mass/Vol] 97 mg/dL Normal 70-100 [facility] Comment on above: ADA recommended refe rence rangeRandom Glucose Reference Range is dependent on time and content of last meal. Glucose of more than 200 mg/dL in a nonstressed, ambulatory subject supports the diagnosis of Diabetes Mellitus. Result Comment: [place] Glucose Reference Range is dependent on time and content of last meal. Glucose of more than 200 mg/dL in a nonstressed, ambulatory subject supports the diagnosis of Diabetes Mellitus. ADA recommended reference range Performed By: #### L IPID, CMP #### [facility] [address] [place] [id number] [place] Lipid Panelon 07-03-2023 LDL Cholesterol,Calculated 69 mg/dL Normal 0-100 [facility] Comment on above: Result Comment: LDL ATP III CLASSIFICATION LDL less than 100 mg/dL Optimal LDL 100-129 mg/dL Near or above optimal LDL 130-159 mg/dL Borderline high LDL 160-189 mg/dL High LDL greater than 189 mg/dL Very high Performed By: #### L IPID, CMP #### [address] Triglyceride w/Reflex 92 mg/dL Normal 0-149 [facility] Comment on above: Result Comment: TRIG ATP III CLASSIFICATION TRIG less than 150 mg/dL Normal TRIG 150-199 mg/dL Borderline high TRIG 200-500 mg/dL High TRIG greater than 500 mg/dL Very high Standard traceable to the Center for Disease Conrtrol and Prevention (CDC) test method. Performed By: #### L IPID, CMP #### [facility] [address] [place] [address] VLDL CHOLESTEROL 18 mg/dL Normal [facility] Comment on above: Performed By: #### L IPID, CMP #### [address] No Panel InformationOrdered By: Celio Mullins on 07-03-2023 Estimated GFR (CKD-EPI) > 60.0 mL/Min [facility] Creatinine Clearance (Chem N/A [facility] Potassium [Moles/volume] in Serum or PlasmaOrdered By: Celio Mullins on 07-03-2023 Potassium [Moles/Vol] 4.3 mmol/L Normal 3.5-5.1 [facility] Comment on above: Performed By: #### L IPID, CMP #### [facility] [address] [place] [address] Protein [Mass/volume] in Ser um or PlasmaOrdered By: Celio Mullins on 07-03-2023 Protein [Mass/Vol] 7.5 g/dL Normal 6.4-8.9 [facility] Comment on above: Performed By: #### L IPID, CMP #### [address] [place] [address] [place] Serum globulin measurement b y calculation (mass/volume)Ordered By: Celio Mullins on 07-03-2023 Globulin (S) [Mass/Vol] 3.1 g/dL Normal [facility] Comment on above: Performed By: #### L IPID, CMP #### [facility] [address] [place] [address] Serum or plasma albumin/glob ulin mass ratioOrdered By: Celio Mullins on 07-03-2023 Albumin/Globulin [Mass ratio] 1.4 {ratio} Normal [facility] Comment on above: Performed By: #### L IPID, CMP #### [facility] [address] [place] [address] Serum or plasma anion gap de terminationOrdered By: Celio Mullins on 07-03-2023 Anion gap [Moles/Vol] 10.2 mmol/L Normal 6.0-15.0 [facility] Comment on above: Performed By: #### L IPID, CMP #### [facility] [address] [place] [address] Serum or plasma high density lipoprotein (HDL) cholesterol measurementOrdered By: Celio Mullins on 07-03-2023 Cholesterol in HDL [Mass/Vol] 39 mg/dL Normal 23-[address] [facility] Comment on above: HDL CHOL ATP-III CLA SSIFICATION Cardiovascular RiskHDL > or equal to 60 mg/dL LOWHDL < 40 mg/dL HIGH Result Comment: HDL CHOL ATP-III CLASSIFICATION Cardiovascular Risk HDL > or equal to 60 mg/dL LOW HDL < 40 mg/dL HIGH Performed By: #### L IPID, CMP #### [facility] [address] [place] [address] Serum or plasma total choles terol/high density lipoprotein (HDL) cholesterol mass ratOrdered By: Celio Mullins on 07-03-2023 Cholesterol.total/Mali sterol in HDL [Mass ratio] 3.2 {ratio} Normal <5.[address] [facility] Comment on above: Result Comment: PERF ORMED BY: [place] [address] PATHOLOGIST WEB APPLICATION TESTER NESHA MAIER M.D. Performed By: #### L IPID, CMP #### [facility] [address] [place] [address] [place] Sodium [Moles/volume] in Ser um or PlasmaOrdered By: Celio Mullins on 07-03-2023 Sodium [Moles/Vol] 141 mmol/L Normal 136-145 [facility] Comment on above: Performed By: #### L IPID, CMP #### [address] Triglyceride [Mass/volume] i n Serum or PlasmaOrdered By: Celio Mullins on 07-03-2023 Triglyceride [Mass/Vol] 92 mg/dL 0-149 [facility] Comment on above: TRIG ATP III CLASSIF ICATIONTRIG less than 150 mg/dL NormalTRIG 150-199 mg/dL Borderline highTRIG 200-500 mg/dL High TRIG greater than 500 mg/dL Very highStandard traceable to the Center for Disease Conrtrol and Prevention (CDC) test method. Urea nitrogen [Mass/volume] in Serum or PlasmaOrdered By: Celio Mullins on 07-03-2023 Urea nitrogen [Mass/Vol] 13 mg/dL Normal 7-[address] [facility] Comment on above: Performed By: #### L IPID, CMP #### [address] A1C with Estimated Average G luon 07-01-2023 Glucose [Mass/Vol] 117 mg/dL Normal [facility] Comment on above: Order Comment: Reaso n for Exam Severe obesity (BMI >= 40);PCOS (polycystic ovarian syndrome Result Comment: PERF ORMED BY: [place] [address] PATHOLOGIST WEB APPLICATION TESTER NESHA MAIER M.D. Performed By: #### A POB, LIPA #### [facility] , #### CMP, A1C WTH eA #### [place] [address] [place] Alanine aminotransferase [En zymatic activity/volume] in Serum or PlasmaOrdered By: Celio Mullins on 07-01-2023 ALT [Catalytic activity/Vol] 21 U/L Normal 7-[address] [facility] Comment on above: Order Comment: Reaso n for Exam Severe obesity (BMI >= 40);PCOS (polycystic ovarian syndrome NON FASTING Performed By: #### A POB, LIPA #### [facility] , #### CMP, A1C WTH eA #### [facility] [address] Albumin [Mass/volume] in Ser um or Plasma by Bromocresol green (BCG) dye binding methoOrdered By: Celio Mullins on 07-01-2023 Albumin BCG dye [Mass/Vol] 4.6 g/dL 3.5-5.[address] [facility] Alkaline phosphatase [Enzyma tic activity/volume] in Serum or PlasmaOrdered By: Celio Mullins on 07-01-2023 ALP [Catalytic activity/Vol] 72 U/L Normal 34-[address] [facility] Comment on above: Order Comment: Reaso n for Exam Severe obesity (BMI >= 40);PCOS (polycystic ovarian syndrome NON FASTING Result Comment: PERF ORMED BY: [place] [address] PATHOLOGIST WEB APPLICATION TESTER NESHA MAIER M.D. Performed By: #### A POB, LIPA #### [facility] , #### CMP, A1C WT eA #### [facility] [address] [place] [address] Apolipoprotein B [Mass/volum e] in Serum or PlasmaOrdered By: Celio Mullins on 07-01-2023 Apolipoprotein B [Mass/Vol] 83 mg/dL Normal <[address] [facility] Comment on above: Desirable < 90 Charissa almanza High 90 - 99 High 100 - 130 Very High >130 ASCVD RISK THERAPEUTIC TARGET CATEGORY APO B (mg/dL) Very High Risk <80 (if extreme risk <70) High Risk <90 Moderate Risk <90Performed at: [facility] [address] [id number] Director: Jeanna Case MD, Phone: [phone] Order Comment: Reaso n for Exam Severe obesity (BMI >= 40);PCOS (polycystic ovarian syndrome Result Comment: Hedy rable < 90 Borderline High 90 - 99 High 100 - 130 Very High >130 ASCVD RISK THERAPEUTIC TARGET CATEGORY APO B (mg/dL) Very High Risk <80 (if extreme risk <70) High Risk <90 Moderate Risk <90 Performed at: - [address] [id number] Ammonium Nitrate Crystallizer: Jeanna Case MD, Phone: [phone] PERFORMED BY: [place] [address] PATHOLOGIST WEB APPLICATION TESTER NESHA MAIER M.D. Performed By: #### A POB, LIPA #### [facility] , #### CMP, A1C WT eA #### [facility] [address] [place] [address] Aspartate aminotransferase [ Enzymatic activity/volume] in Serum or PlasmaOrdered By: Celio Mullins on 07-01-2023 AST [Catalytic activity/Vol] 19 U/L Normal 13-[address] [facility] Comment on above: Order Comment: Reaso n for Exam Severe obesity (BMI >= 40);PCOS (polycystic ovarian syndrome NON FASTING Performed By: #### A POB, LIPA #### [facility] , #### CMP, A1C WT eA #### [facility] [address] [place] [address] Bilirubin.total [Mass/volume ] in Serum or PlasmaOrdered By: Celio Mullins on 07-01-2023 Bilirubin [Mass/Vol] 0.4 mg/dL Normal 0.3-1.0 [facility] Comment on above: Order Comment: Reaso n for Exam Severe obesity (BMI >= 40);PCOS (polycystic ovarian syndrome NON FASTING Performed By: #### A POB, LIPA #### [facility] , #### CMP, A1C WTH eA #### [facility] [address] [place] [address] [place] Calcium [Mass/volume] in Ser um or PlasmaOrdered By: Celio Mullins on 07-01-2023 Calcium [Mass/Vol] 9.8 mg/dL Normal 8.6-10.3 [facility] Comment on above: Order Comment: Reaso n for Exam Severe obesity (BMI >= 40);PCOS (polycystic ovarian syndrome NON FASTING Performed By: #### A POB, LIPA #### [facility] , #### CMP, A1C WTH eA #### [address] Carbon dioxide, total [Moles /volume] in Serum or PlasmaOrdered By: Celio Mullins on 07-01-2023 CO2 [Moles/Vol] 25.3 mmol/L Normal 21.0-31.0 [facility] Comment on above: Order Comment: Reaso n for Exam Severe obesity (BMI >= 40);PCOS (polycystic ovarian syndrome NON FASTING Performed By: #### A POB, LIPA #### [facility] , #### CMP, A1C WT eA #### [place] [address] [place] Chloride [Moles/volume] in S marta or PlasmaOrdered By: Celio Mullins on 07-01-2023 Chloride [Moles/Vol] 105 mmol/L Normal 98-107 [facility] Comment on above: Order Comment: Reaso n for Exam Severe obesity (BMI >= 40);PCOS (polycystic ovarian syndrome NON FASTING Performed By: #### A POB, LIPA #### [facility] , #### CMP, A1C WTH eA #### [address] Comprehensive Metabolic Pane landon 07-01-2023 Albumin [Mass/Vol] 4.6 g/dL Normal 3.5-5.7 [facility] Comment on above: Order Comment: Niharikao n for Exam Severe obesity (BMI >= 40);PCOS (polycystic ovarian syndrome NON FASTING Performed By: #### A POB, LIPA #### [facility] , #### CMP, A1C WTH eA #### [facility] [address] [id number] [place] GFR/1.73 sq M.predicted MDRD (S/P/Bld) [Vol rate/Area] mL/min/{1.73_m2} Normal [facility] Comment on above: Order Comment: Niharikao n for Exam Severe obesity (BMI >= 40);PCOS (polycystic ovarian syndrome NON FASTING Performed By: #### A POB, LIPA #### [facility] , #### CMP, A1C WT eA #### [place] [id number] [facility] Creatinine [Mass/volume] in Serum or PlasmaOrdered By: Celio Mullins on 07-01-2023 Creatinine [Mass/Vol] 0.64 mg/dL Normal 0.60-1.20 [facility] Comment on above: Order Comment: Michela n for Exam Severe obesity (BMI >= 40);PCOS (polycystic ovarian syndrome NON FASTING Performed By: #### A POB, LIPA #### [facility] , #### CMP, A1C WTH eA #### [address] Glucose [Mass/volume] in Ser um or PlasmaOrdered By: Celio Mullins on 07-01-2023 Glucose [Mass/Vol] 95 mg/dL Normal 70-100 [facility] Comment on above: ADA recommended refe rence rangeRandom Glucose Reference Range is dependent on time and content of last meal. Glucose of more than 200 mg/dL in a nonstressed, ambulatory subject supports the diagnosis of Diabetes Mellitus. Order Comment: Michela slater for Exam Severe obesity (BMI >= 40);PCOS (polycystic ovarian syndrome NON FASTING Result Comment: [facility] [place] [facility] [place] Glucose Reference Range is dependent on time and content of last meal. Glucose of more than 200 mg/dL in a nonstressed, ambulatory subject supports the diagnosis of Diabetes Mellitus. ADA recommended reference range Performed By: #### A POB, LIPA #### [facility] , #### CMP, A1C WTH eA #### [facility] [address] Glucose mean value [Mass/vol ume] in Blood Estimated from glycated hemoglobinOrdered By: Celio Mullins on 07-01-2023 Average glucose Estimated from glycated hemoglobin (Bld) [Mass/Vol] 117 mg/dL [facility] Hemoglobin A1c percentageOrd ered By: Celio Mullins on 07-01-2023 HbA1c (Bld) [Mass fraction] 5.7 % High 4.3-5.[address] [facility] Comment on above: Increased risk for [...] , #### CMP, A1C WTH eA #### [facility] [address] Lipoprotein (a)on 07-01-2023 Lipoprotein a [Mass/Vol] 13.0 mg/dL Normal <75.0 [facility] Comment on above: Order [...] factors on Lp(a) across ethnicities. Performed at: [facility] [address] [id number] Ammonium Nitrate Crystallizer: Cassius Zhong PhD, Phone: [phone] Performed By: #### A POB, LIPA #### [facility] , #### CMP, A1C WTH eA #### [address] No Panel InformationOrdered By: Celio Mullins on 07-01-2023 Estimated GFR (CKD-EPI) > 60.0 mL/Min [facility] Creatinine Clearance (Chem N/A [facility] Potassium [Moles/volume] in Serum or PlasmaOrdered By: Celio Mullins on 07-01-2023 Potassium [Moles/Vol] 3.8 mmol/L Normal 3.5-5.1 [facility] Comment on above: Order Comment: Reaso n for Exam Severe obesity (BMI >= 40);PCOS (polycystic ovarian syndrome NON FASTING Performed By: #### A POB, LIPA #### [facility] , #### CMP, A1C WTH eA #### [address] Protein [Mass/volume] in Ser um or PlasmaOrdered By: Celio Mullins on 07-01-2023 Protein [Mass/Vol] 7.8 g/dL Normal 6.4-8.9 [facility] Comment on above: Order Comment: Reaso n for Exam Severe obesity (BMI >= 40);PCOS (polycystic ovarian syndrome NON FASTING Performed By: #### A POB, LIPA #### [facility] , #### CMP, A1C WTH eA #### [place] [address] [place] Serum globulin measurement b y calculation (mass/volume)Ordered By: Celio Mullins on 07-01-2023 Globulin (S) [Mass/Vol] 3.2 g/dL Normal [facility] Comment on above: Order Comment: Reaso n for Exam Severe obesity (BMI >= 40);PCOS (polycystic ovarian syndrome NON FASTING Performed By: #### A POB, LIPA #### [facility] , #### CMP, A1C WTH eA #### [facility] [address] Serum or plasma albumin/glob ulin mass ratioOrdered By: Celio Mullins on 07-01-2023 Albumin/Globulin [Mass ratio] 1.4 {ratio} Normal [facility] Comment on above: Order Comment: Reaso n for Exam Severe obesity (BMI >= 40);PCOS (polycystic ovarian syndrome NON FASTING Performed By: #### A POB, LIPA #### [facility] , #### CMP, A1C WT eA #### [facility] [address] [place] [address] Serum or plasma anion gap de terminationOrdered By: Celio Mullins on 07-01-2023 Anion gap [Moles/Vol] 11.5 mmol/L Normal 6.0-15.0 [facility] Comment on above: Order Comment: Reaso n for Exam Severe obesity (BMI >= 40);PCOS (polycystic ovarian syndrome NON FASTING Performed By: #### A POB, LIPA #### [facility] , #### CMP, [address] eA #### [address] Serum or plasma lipoprotein a measurement (moles/volume)Ordered By: Celio Mullins on 07-01-2023 Lipoprotein a [Moles/Vol] 13.0 nmol/L <75.[address] [facility] Comment on above: Note: Values greater than or equal to 75.0 nmol/L may indicate an independent risk factor for CHD, but must be evaluated with caution when applied to non- populations due to the influence of genetic factors on Lp(a) across ethnicities.Performed at: - [facility] [address] [id number] Director: Cassius Zhong PhD, Phone: [phone] Sodium [Moles/volume] in Ser um or PlasmaOrdered By: Celio Mullins on 07-01-2023 Sodium [Moles/Vol] 138 mmol/L Normal 136-145 [facility] Comment on above: Order Comment: Reaso n for Exam Severe obesity (BMI >= 40);PCOS (polycystic ovarian syndrome NON FASTING Performed By: #### A POB, LIPA #### [facility] , #### CMP, A1C WTH eA #### [facility] [address] Urea nitrogen [Mass/volume] in Serum or PlasmaOrdered By: Celio Mullins on 07-01-2023 Urea nitrogen [Mass/Vol] 16 mg/dL Normal 7-[address] [facility] Comment on above: Order Comment: Reaso n for Exam Severe obesity (BMI >= 40);PCOS (polycystic ovarian syndrome NON FASTING Performed By: #### A POB, LIPA #### [facility] , #### CMP, A1C WT eA #### [facility] [address] COVID Quick Testingon 2022 Result Negative [employer] [facility] [employer] Other SARS-CoV-2 (COVID-19) RNA NA A+probe Ql (Resp)on 02-11-2023 SARS-CoV-2 (COVID-19) RNA SURI+probe Ql (Unsp spec) Negative [employer] [facility] [employer] Other DHEA-SULFATEon 01-01-2023 DHEA-Sulfate 95.3 ug/dL Normal 84.8-378.0 [facility] Comment on above: Performed By: #### D RIMA #### [facility] [address] [place] [address] Dr. Kaushik Palomares FSHon 01-01-2023 FSH 4.6 mIU/mL Normal [facility] Comment on above: Result Comment: Adul t Female: Follicular phase 3.5 - 12.5 Ovulation phase 4.7 - 21.5 Luteal phase 1.7 - 7.7 Postmenopausal 25.8 - 134.8 Performed By: #### C BC #### [facility] [address] [place] [address] Dr. Kaushik Palomares LUTEINIZING HORMONE (LH)on 0 01-01-2023 LH 3.5 mIU/mL Normal [facility] Comment on above: Result Comment: Adul t Female: Follicular phase 2.4 - 12.6 Ovulation phase 14.0 - 95.6 Luteal phase 1.0 - 11.4 Postmenopausal 7.7 - 58.5 Performed By: #### L BCL #### [facility] [address] [place] [address] Dr. Kaushik Palomares CBC AUTO DIFFon 12-31-2022 BASO # 0.1 103/ul Normal 0.0-0.1 [facility] Comment on above: Performed By: #### C BC #### [facility] [address] [place] [address] Dr. Kaushik Palomares Basophils/100 WBC (Bld) 0.8 % Normal 0.2-2.0 [facility] Comment on above: Performed By: #### C BC #### [facility] [address] [place] [address] Dr. Kaushik Palomares EO # 0.1 103/ul Normal 0.0-0.7 [facility] Comment on above: Performed By: #### C BC #### [facility] [address] [place] [address] Dr. Kaushik Palomares Eosinophils/100 WBC (Bld) 1.7 % Normal 0.9-7.0 [facility] Comment on above: Performed By: #### C BC #### [facility] [address] [place] [address] Dr. Kaushik Palomares Erythrocyte distribution width (RBC) [Ratio] 12.8 % Normal 11.0-15.0 [facility] Comment on above: Performed By: #### C BC #### [facility] [address] [place] [address] Dr. Kaushik Palomares Hematocrit (Bld) [Volume fraction] 33.0 % Critically low 36.0-48.0 [facility] Comment on above: Performed By: #### C BC #### [facility] [address] [place] [address] Dr. Kaushik Palomares Hemoglobin (Bld) [Mass/Vol] 11.0 g/dL Critically low 12.0-16.0 [facility] Comment on above: Performed By: #### C BC #### [facility] [address] [place] [address] Dr. Kaushik Palomares IG # 0.03 10e3/ul Normal 0.00-0.03 [facility] Comment on above: Performed By: #### C BC #### [facility] [address] [place] [address] Dr. Kaushik Palomares IG % 0.5 % Normal 0.0-0.5 [facility] Comment on above: Performed By: #### C BC #### [facility] [address] [place] [address] Dr. Kaushik Palomares LYMPH # 2.4 103/ul Normal 1.2-3.8 [facility] Comment on above: Performed By: #### C BC #### [facility] [address] [place] [address] Dr. Kaushik Palomares Lymphocytes/100 WBC (Bld) 36.6 % Normal 20.5-60.0 [facility] Comment on above: Performed By: #### C BC #### [facility] [address] [place] [address] Dr. Kaushik Palomares MANUAL DIFF REQ NO Normal [facility] Comment on above: Performed By: #### C BC #### [facility] [address] [place] [address] Dr. Kaushik Palomares MCH (RBC) [Entitic mass] 29.0 pg Normal 26.7-34.0 [facility] Comment on above: Performed By: #### C BC #### [facility] [address] [place] [address] Dr. Kaushik Palomares MCHC (RBC) [Mass/Vol] 33.3 g/dL Normal 29.9-35.2 [facility] Comment on above: Performed By: #### C BC #### [facility] [address] [place] [address] Dr. Kaushik Palomares MCV (RBC) [Entitic vol] 87.1 fL Normal 81.0-99.0 [facility] Comment on above: Performed By: #### C BC #### [facility] [address] [address] [address] Kaushik Palomares MONO # 0.2 103/ul Critically low 0.3-0.[address] [facility] Comment on above: Performed By: #### C BC #### [facility] [address] [place] [address] Dr. Kaushik Palomares Monocytes/100 WBC (Bld) 3.6 % Normal 1.7-12.0 [facility] Comment on above: Performed By: #### C BC #### [facility] [address] [place] [address] Dr. Kaushik Palomares NEUT # 3.7 103/ul Normal 1.4-6.5 [facility] Comment on above: Performed By: #### C BC #### [facility] [address] [place] [address] Dr. Kaushik Palomares Neutrophils/100 WBC (Bld) 56.8 % Normal 43.0-75.0 [facility] Comment on above: Performed By: #### C BC #### [facility] [address] [place] [address] Dr. Kaushik Palomares Platelet mean volume (Bld) [Entitic vol] 9.8 fL Normal 9.5-13.5 [facility] Comment on above: Performed By: #### C BC #### [facility] [address] [place] [address] Dr. Kaushik Palomares PLT 234 103/ul Normal 150-450 [facility] Comment on above: Performed By: #### C BC #### [facility] [address] [place] [address] Dr. Kaushik Palomares RBC 3.79 106/ul Critically low 4.20-5.40 [facility] Comment on above: Performed By: #### C BC #### [facility] [address] [place] [address] Dr. Kaushik Palomares WBC 6.5 103/ul Normal 4.0-11.0 [facility] Comment on above: Performed By: #### C BC #### [facility] [address] [place] [address] Dr. Kaushik Palomares FREE T4on 12-31-2022 Free T4 [Mass/Vol] 0.79 ng/dL Normal 0.76-1.46 [facility] Comment on above: Performed By: #### F T4 #### [facility] [address] [address] [address] Kaushik Palomares GLYCOHEMOGLOBIN A1Con 2022 ADA RECOMMENDATION SEE BELOW Normal [facility] Comment on above: Result Comment: ADA RECOMMENDED LIMIT 4.0 - 6.0 ADA THERAPEUTIC TARGET < 7.0 ACTION SUGGESTED > 7.0 Performed By: #### A 1C #### [facility] [address] [address] [address] Kaushik Palomares Glucose [Mass/Vol] 111 mg/dL Normal [facility] Comment on above: Performed By: #### A 1C #### [facility] [address] [place] [address] Dr. Kaushik Palomares HbA1c (Bld) [Mass fraction] 5.5 % Normal 4.5-6.2 [facility] Comment on above: Performed By: #### A 1C #### [facility] [address] [address] [address] Kaushik Palomares TSHon 12-31-2022 TSH 1.114 uIU/mL Normal 0.358-3.740 [facility] Comment on above: Performed By: #### C BC #### [facility] [address] [place] [address] Dr. Kaushik Palomares US PELVIS AND TRANSVAGon [...] SUGEY MACDONALD Date: 2022-11-26 15:58 Normal [facility] XR SACRUM_COCCYXon 3 XR SACRUM_COCCYX EXAMINATION: [...] by: SUGEY MACDONALD Date: 2022-11-08 10:01 Normal [facility] PAP ACOG PANEL 2: 30 to 65on 11-05-2022 . . Normal [facility] Comment on above: Result Comment: Perf ormed at: WB Performed By: #### C BC #### [facility] [address] [address] [address] Kaushik Palomares Age Gdln ACOG Testing 30-65 Normal [facility] Comment on above: Performed By: #### C BC #### [facility] [address] [place], [place] [address] Dr. Kaushik Palomares DIAGNOSIS: Comment Normal [facility] Comment on above: Result Comment: NEGA TIVE FOR INTRAEPITHELIAL LESION OR MALIGNANCY. Performed at: [facility] Performed By: #### C BC #### [facility] [address] [id number] Kaushik Palomares HPV Aptima Negative Normal Negative [facility] Comment on above: Result Comment: This nucleic acid amplification test detects fourteen high-risk HPV types (16,18,31,33,35,39,45,51,52,56,58,59,66,68) without differentiation. Performed at: =G Performed By: #### C BC #### [facility] [address] [place] [address] Dr. Kaushik Palomares HPV Genotype Reflex Comment Normal [facility] Comment on above: Result Comment: Crit eria not met, HPV Genotype not performed. Performed at: [facility] Performed By: #### C BC #### [facility] [address] [place] [address] Dr. Kaushik Palomares Methodology: Comment Normal [facility] Comment on above: Result Comment: This liquid based ThinPrep(R) pap test was screened with the use of an image guided system. Performed at: [facility] Performed By: #### C BC #### [facility] [address] [place] [address] Dr. Kaushik Palomares Note: Comment Normal [facility] Comment on above: Result Comment: The [...] WB Performed By: #### C BC #### [facility] [address] [place] [address] Dr. Kaushik Palomares Performed by: Comment Normal [facility] Comment on above: Result Comment: Robi Graham, Nurse Discharge Planner (ASCP) Performed at: WB Performed By: #### C BC #### [facility] [address] [place] [address] Dr. Kaushik Palomares Specimen adequacy: Comment Normal [facility] Comment on above: Result Comment: Sati sfactory for evaluation. Endocervical and/or squamous metaplastic cells (endocervical component) are present. Performed at: WB Performed By: #### C BC #### [facility] [address] [place] [address] Dr. Kaushik Palomares COVID/FLU RT-PCRon 2 SARS-CoV-2 (COVID-19) RNA SURI+probe Ql (Unsp spec) Negative [facility] [employer] Other COVID/FLU RT-PCR Negative [facility] [employer] Other HCG-BETA SUBUNIT QUANTon hCG,Beta Subunit,Qnt,Serum <1 Normal [facility] Comment on above: Result Comment: Fema le (Non-) 0 - 5 (Postmenopausal) 0 - 8 . Female () Weeks of Gestation 3 6 - 71 4 10 - 750 5 529 - 8049 6 900 - 59428 7 [phone] -[phone] 8 55233 -180767 9 31799 -126479 10 35255 -737174 12 01051 -635362 14 13118 - 66106 15 99066 - 26176 16 7996 - 51282 17 3847 - 67407 18 7491 - 45860 Rg ECLIA methodology Performed By: #### H CGSUB #### [facility] [address] [place] [address] Dr. Kaushik Palomares T4 LABCORPon 01-22-2022 T4 [Mass/Vol] 7.8 ug/dL Normal 4.5-12.0 [facility] Comment on above: Performed By: #### T 4LC #### [facility] [address] [place] [address] Dr. Kaushik Palomares CBC AUTO DIFFon 01-21-2022 BASO # 0.1 103/ul Normal 0.0-0.1 [facility] Comment on above: Performed By: #### C BC #### [facility] [address] [place] [address] Dr. Kaushik Palomares Basophils/100 WBC (Bld) 0.6 % Normal 0.2-2.0 [facility] Comment on above: Performed By: #### C BC #### [facility] [address] [place] [address] Dr. Kaushik Palomares EO # 0.1 103/ul Normal 0.0-0.7 [facility] Comment on above: Performed By: #### C BC #### [facility] [address] [place] [address] Dr. Kaushik Palomares Eosinophils/100 WBC (Bld) 1.2 % Normal 0.9-7.0 [facility] Comment on above: Performed By: #### C BC #### [facility] [address] [place] [address] Dr. Kaushik Palomares Erythrocyte distribution width (RBC) [Ratio] 13.3 % Normal 11.0-15.0 [facility] Comment on above: Performed By: #### C BC #### [facility] [address] [place] [address] Dr. Kaushik Palomares Hematocrit (Bld) [Volume fraction] 40.0 % Normal 36.0-48.0 [facility] Comment on above: Performed By: #### C BC #### [facility] [address] [place] [address] Dr. Kaushik Palomares Hemoglobin (Bld) [Mass/Vol] 12.7 g/dL Normal 12.0-16.0 [facility] Comment on above: Performed By: #### C BC #### [facility] [address] [place] [address] Dr. Kaushik Palomares IG # 0.02 10e3/ul Normal 0.00-0.03 [facility] Comment on above: Performed By: #### C BC #### [facility] [address] [place] [address] Dr. Kaushik Palomares IG % 0.2 % Normal 0.0-0.5 [facility] Comment on above: Performed By: #### C BC #### [facility] [address] [place] [address] Dr. Kaushik Palomares LYMPH # 3.0 103/ul Normal 1.2-3.8 [facility] Comment on above: Performed By: #### C BC #### [facility] [address] [place] [address] Dr. Kaushik Palomares Lymphocytes/100 WBC (Bld) 32.9 % Normal 20.5-60.0 [facility] Comment on above: Performed By: #### C BC #### [facility] [address] [place] [address] Dr. Kaushik Palomares MANUAL DIFF REQ NO Normal [facility] Comment on above: Performed By: #### C BC #### [facility] [address] [place] [address] Dr. Kaushik Palomares MCH (RBC) [Entitic mass] 28.5 pg Normal 26.7-34.0 [facility] Comment on above: Performed By: #### C BC #### [facility] [address] [place] [address] Dr. Kaushik Palomares MCHC (RBC) [Mass/Vol] 31.8 g/dL Normal 29.9-35.2 [facility] Comment on above: Performed By: #### C BC #### [facility] [address] [place] [address] Dr. Kaushik Palomares MCV (RBC) [Entitic vol] 89.7 fL Normal 81.0-99.0 [facility] Comment on above: Performed By: #### C BC #### [facility] [address] [place] [address] Dr. Kaushik Palomares MONO # 0.5 103/ul Normal 0.3-0.8 [facility] Comment on above: Performed By: #### C BC #### [facility] [address] [place] [address] Dr. Kaushik Palomares Monocytes/100 WBC (Bld) 5.1 % Normal 1.7-12.0 [facility] Comment on above: Performed By: #### C BC #### [facility] [address] [place] [address] Dr. Kaushik Palomares NEUT # 5.4 103/ul Normal 1.4-6.5 [facility] Comment on above: Performed By: #### C BC #### [facility] [address] [place] [address] Dr. Kaushik Palomares Neutrophils/100 WBC (Bld) 60.0 % Normal 43.0-75.0 [facility] Comment on above: Performed By: #### C BC #### [facility] [address] [address] [address] Kaushik Palomares Platelet mean volume (Bld) [Entitic vol] 9.3 fL Critically low 9.5-13.5 [facility] Comment on above: Performed By: #### C BC #### [facility] [address] [place] [address] Dr. Kaushik Palomares PLT 221 103/ul Normal 150-450 [facility] Comment on above: Performed By: #### C BC #### [facility] [address] [address] [address] Kaushik Palomares RBC 4.46 106/ul Normal 4.20-5.40 [facility] Comment on above: Performed By: #### C BC #### [facility] [address] [place] [address] Dr. Kaushik Palomares WBC 9.0 103/ul Normal 4.0-11.0 [facility] Comment on above: Performed By: #### C BC #### [facility] [address] [place] [address] Dr. Kaushik Palomares GLYCOHEMOGLOBIN A1Con 2021 ADA RECOMMENDATION SEE BELOW Normal [facility] Comment on above: Result Comment: ADA RECOMMENDED LIMIT 4.0 - 6.0 ADA THERAPEUTIC TARGET < 7.0 ACTION SUGGESTED > 7.0 Performed By: #### C BC #### [facility] [address] [place] [address] Dr. Kaushik Palomares Glucose [Mass/Vol] 94 mg/dL Normal [facility] Comment on above: Performed By: #### C BC #### [facility] [address] [place] [address] Dr. Kaushik Palomares HbA1c (Bld) [Mass fraction] 4.9 % Normal 4.5-6.2 [facility] Comment on above: Performed By: #### C BC #### [facility] [address] [place] [address] Dr. Kaushik Palomares LIPID PROFILEon 01-21-2022 CHOL-HDL RATIO NORM SEE BELOW Normal [facility] Comment on above: Result Comment: 3.3 - 4.4 LOW RISK 4.4 - 7.1 AVERAGE RISK 7.1 - 11.0 MODERATE RISK >11.0 HIGH RISK Performed By: #### L IPID, CMP, TSH #### [facility] [address] [address] [address] Kaushik Palomares Cholesterol [Mass/Vol] 168 mg/dL Normal <=200 [facility] Comment on above: Performed By: #### L IPID, CMP, TSH #### [facility] [address] [address] [address] Kaushik Palomares Cholesterol in HDL [Mass/Vol] 41 mg/dL Normal 40-60 [facility] Comment on above: Performed By: #### L IPID, CMP, TSH #### [facility] [address] [place] [address] Dr. Kaushik Palomares Cholesterol in LDL [Mass/Vol] 90.2 mg/dL Normal [facility] Comment on above: Performed By: #### L IPID, CMP, TSH #### [facility] [address] [place] [address] Dr. Kaushik Palomares Cholesterol.total/Mali sterol in HDL [Mass ratio] 4.1 {ratio} Normal [facility] Comment on above: Performed By: #### L IPID, CMP, TSH #### [facility] [address] [place] [address] Dr. Kaushik Palomares HDL NORMAL > or = 60 mg/dl - LO W CARDIOVASCULAR RISK <40 mg/dl - HIGH CARDIOVASCULAR RISK Normal [facility] Comment on above: Performed By: #### L IPID, CMP, TSH #### [facility] [address] [place] [address] Dr. Kaushik Palomares LDL CALC NORMAL SEE BELOW Normal [facility] Comment on above: Result Comment: <100 mg/dl OPTIMAL 100 - 129 mg/dl NEAR OR ABOVE OPTIMAL 130 - 159 mg/dl BORDERLINE HIGH 160 - 189 mg/dl HIGH >190 mg/dl VERY HIGH Performed By: #### L IPID, CMP, TSH #### [facility] [address] [address] [address] Kaushik Palomares Triglyceride [Mass/Vol] 184 mg/dL Critically high <=150 [facility] Comment on above: Performed By: #### L IPID, CMP, TSH #### [facility] [address] [address] [address] Kaushik Palomares VLDL CALC 36.8 mg/dL Normal [facility] Comment on above: Performed By: #### L IPID, CMP, TSH #### [facility] [address] [address] [address] Kaushik Palomares MICROALBUMIN, RAND URon mALB 2.0 mg/L Normal <=30.0 [facility] Comment on above: Performed By: #### C BC #### [facility] [address] [place] [address] Dr. Kaushik Palomares PROF 14(COMP METB)on 022 Albumin [Mass/Vol] 3.7 g/dL Normal 3.4-5.0 [facility] Comment on above: Performed By: #### L IPID, CMP, TSH #### [facility] [address] [place] [address] Dr. Kaushik Palomares Albumin/Globulin [Mass ratio] 0.9 {ratio} Normal [facility] Comment on above: Performed By: #### L IPID, CMP, TSH #### [facility] [address] [place] [address] Dr. Kaushik Palomares ALP [Catalytic activity/Vol] 53 U/L Normal 46-116 [facility] Comment on above: Performed By: #### L IPID, CMP, TSH #### [facility] [address] [place] [address] Dr. Kaushik Palomares ALT [Catalytic activity/Vol] 44 U/L Normal 14-59 [facility] Comment on above: Performed By: #### L IPID, CMP, TSH #### [facility] [address] [place] [address] Dr. Kaushik Palomares Anion gap [Moles/Vol] 6.8 mmol/L Normal [facility] Comment on above: Performed By: #### L IPID, CMP, TSH #### [facility] [address] [place] [address] Dr. Kaushik Palomares AST [Catalytic activity/Vol] 22 U/L Normal 15-37 [facility] Comment on above: Performed By: #### L IPID, CMP, TSH #### [facility] [address] [address] [address] Kaushik Palomares Bilirubin [Mass/Vol] 0.3 mg/dL Normal 0.2-1.0 [facility] Comment on above: Performed By: #### L IPID, CMP, TSH #### [facility] [address] [place] [address] Dr. Kaushik Palomares Calcium [Mass/Vol] 9.2 mg/dL Normal 8.5-10.1 [facility] Comment on above: Performed By: #### L IPID, CMP, TSH #### [facility] [address] [place] [address] Dr. Kaushik Palomares Chloride [Moles/Vol] 102 mmol/L Normal 98-107 [facility] Comment on above: Performed By: #### L IPID, CMP, TSH #### [facility] [address] [place] [address] Dr. Kaushik Palomares CO2 [Moles/Vol] 31.4 mmol/L Normal 21.0-32.0 [facility] Comment on above: Performed By: #### L IPID, CMP, TSH #### [facility] [address] [place] [address] Dr. Kaushik Palomares Creatinine [Mass/Vol] 0.71 mg/dL Normal 0.55-1.02 [facility] Comment on above: Performed By: #### L IPID, CMP, TSH #### [facility] [address] [place] [address] Dr. Kaushik Palomares EGFR-AF UKRAINIAN >60 Normal >=60 [facility] Comment on above: Performed By: #### L IPID, CMP, TSH #### [facility] [address] [place] [address] Dr. Kaushik Palomares EGFR-NON AF UKRAINIAN >60 Normal >=60 [facility] Comment on above: Performed By: #### L IPID, CMP, TSH #### [facility] [address] [address] [address] Kaushik Palomares Globulin (S) [Mass/Vol] 4.2 g/dL Normal T [facility] Comment on above: Performed By: #### L IPID, CMP, TSH #### [facility] [address] [address] [address] Kaushik Palomares Glucose [Mass/Vol] 93 mg/dL Normal 74-106 [facility] Comment on above: Performed By: #### L IPID, CMP, TSH #### [facility] [address] [address] [address] Kaushik Palomares Potassium [Moles/Vol] 4.2 mmol/L Normal 3.5-5.1 [facility] Comment on above: Performed By: #### L IPID, CMP, TSH #### [facility] [address] [place] [address] Dr. Kaushik aPlomares Protein [Mass/Vol] 7.9 g/dL Normal 6.4-8.2 [facility] Comment on above: Performed By: #### L IPID, CMP, TSH #### [facility] [address] [address] [address] Kaushik Palomares Sodium [Moles/Vol] 136 mmol/L Normal 136-145 [facility] Comment on above: Performed By: #### L IPID, CMP, TSH #### [facility] [address] [address] [address] Kaushik Palomares Urea nitrogen [Mass/Vol] 11.0 mg/dL Normal 7.0-18.0 [facility] Comment on above: Performed By: #### L IPID, CMP, TSH #### [facility] [address] [address] [address] aKushik Palomares Urea nitrogen/Creatinine [Mass ratio] 15.5 mg/mg Normal [facility] Comment on above: Performed By: #### L IPID, CMP, TSH #### [facility] [address] [address] [address] Kaushik Palomares TSHon 01-21-2022 TSH 1.298 uIU/mL Normal 0.358-3.740 [facility] Comment on above: Performed By: #### C BC #### [facility] [address] [address] [address] Kaushik Palomares TSH RANGE SEE BELOW Normal [facility] Comment on above: Result Comment: <0.3 4 UIU/ml HYPERTHYROID 0.34-5.60 UIU/ml EUTHYROID >5.60 UIU/ml HYPOTHYROID Performed By: #### C BC #### [facility] [address] [place], [place] [address] Dr. Kaushik Palomares COVID Quick Testingon 2020 Result Negative [facility] Other Quick Strepon 06-17-2021 S. pyogenes Org specific cx Ql (Throat) Negative [employer] Other Quick Strep [facility] Other Urinalysis - AUTOMATEDon Appearance (U) cloudy [employer] Other Bilirubin Ql (U) Negative [employer] Other Color (U) yellow [facility] Other Glucose Ql (U) Negative [employer] Other Hemoglobin Ql (U) large [employer] Other Ketones Ql (U) Negative [employer] Other Leukocyte esterase Test strip Ql (U) trace [facility] Other Nitrite Ql (U) Positive [employer] Other pH (U) 5.5 [pH] [facility] Other Protein Ql (U) 100 [employer] Other Specific gravity (U) [Rel density] 1.025 [facility] Other Urobilinogen (U) [Mass/Vol] 0.2 mg/dL [facility] [employer] Other Urinalysis - AUTOMATED [facility] [employer] Other Urine Cultureon 05-31-2021 Urine Culture >100,000 [facility] [employer] Other Urine Culture <16 [facility] [employer] Other Urine Culture >16 [facility] [employer] Other Urine Culture <4 [facility] [employer] Other Urine Culture 8 [facility] [employer] Other Urine Culture <2 [facility] [employer] Other Urine Culture <1 [facility] [employer] Other Urine Culture >2 [facility] [employer] Other Urine Culture <0.5 [facility] [employer] Other Urine Culture >8 [facility] [employer] Other Urine Culture >4 [facility] [employer] Other Urine Culture <32 [facility] [facility] [employer] Other Urine Culture >2/38 [employer] [facility] [employer] Other Vital Signs Date Time Vital Sign Value 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 06-15-2024 09:29-0400 Body height 162.56 cm ROSITA Marc Work Phone: [facility] 06-15-2024 09:29-0400 Body mass index (BMI) [Ratio] 57.9 kg/m2 ROSITA Marc Work Phone: [facility] 06-15-2024 09:29-0400 Body temperature 97.5 [degF] ROSITA Marc Work Phone: [facility] 06-15-2024 09:29-0400 Body weight 152.97 kg ROSITA Marc Work Phone: 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 06-15-2024 09:29-0400 Heart rate 103 /min SOFTWARE ENGINEERING PROJECT MANAGER Manisha Denyrbacher Work Phone: [facility] 06-15-2024 09:29-0400 Respiratory rate 18 /min SOFTWARE ENGINEERING PROJECT MANAGER Manisha Denyrbacher Work Phone: [facility] 06-15-2024 09:29-0400 SaO2% (BldA) [Mass fraction] 95 % SOFTWARE ENGINEERING PROJECT MANAGER Manisha Charlyacher Work Phone: [facility] 06-15-2024 09:29-0400 Systolic blood pressure 128 mm[Hg] SOFTWARE ENGINEERING PROJECT MANAGER Manisha Denyrbacher Work Phone: [facility] 04-21-2024 14:31-0400 Body height 162.56 cm SOFTWARE ENGINEERING PROJECT MANAGERJosé Miguel ThaoManisha Denyrbacher Work Phone: [facility] 04-21-2024 14:31-0400 Body mass index (BMI) [Ratio] 55 kg/m2 SOFTWARE ENGINEERING PROJECT MANAGER Manisha Denyrbacher Work Phone: [facility] 04-21-2024 14:31-0400 Body weight 145.6 kg SOFTWARE ENGINEERING PROJECT MANAGERJosé Miguel ThaoManisha Denyrbacher Work Phone: [facility] 04-21-2024 14:31-0400 Diastolic blood pressure 88 mm[Hg] SOFTWARE ENGINEERING PROJECT MANAGERJosé Miguel ColladoManisha Denyrbacher Work Phone: [facility] 04-21-2024 14:31-0400 Heart rate 111 /min SOFTWARE ENGINEERING PROJECT MANAGERJosé Miguel ColladoManisha Denyrbacher Work Phone: [facility] 04-21-2024 14:31-0400 SaO2% (BldA) [Mass fraction] 97 % SOFTWARE ENGINEERING PROJECT MANAGERJosé Miguel Barclayrbacher Work Phone: [facility] 04-21-2024 14:31-0400 Systolic blood pressure 136 mm[Hg] SOFTWARE ENGINEERING PROJECT MANAGER Manisha Denyrbacher Work Phone: [facility] 11-26-2023 08:40-0400 Body height 162.56 cm SOFTWARE ENGINEERING PROJECT MANAGER Manisha Denyrbacher Work Phone: [facility] 11-26-2023 08:40-0400 Body mass index (BMI) [Ratio] 52.9 kg/m2 SOFTWARE ENGINEERING PROJECT MANAGER Manisha Denyrbacher Work Phone: [facility] 11-26-2023 08:40-0400 Body weight 139.79 kg SOFTWARE ENGINEERING PROJECT MANAGER Manisha Denyrbacher Work Phone: [facility] 11-26-2023 08:40-0400 Diastolic blood pressure 79 mm[Hg] SOFTWARE ENGINEERING PROJECT MANAGER Manihsa Denyrbacher Work Phone: [facility] 11-26-2023 08:40-0400 Heart rate 97 /min SOFTWARE ENGINEERING PROJECT MANAGER Manisha Denyrbacher Work Phone: [facility] 11-26-2023 08:40-0400 SaO2% (BldA) [Mass fraction] 99 % SOFTWARE ENGINEERING PROJECT MANAGER Manisha Denyrbacher Work Phone: [facility] 11-26-2023 08:40-0400 Systolic blood pressure 131 mm[Hg] SOFTWARE ENGINEERING PROJECT MANAGERJosé Miguel ColladoManisha Charlyacher Work Phone: [facility] 11-03-2023 14:06-0400 Body height 162.56 cm SOFTWARE ENGINEERING PROJECT MANAGER Manisha Denyrbacher Work Phone: [facility] 11-03-2023 14:06-0400 Body mass index (BMI) [Ratio] 53.1 kg/m2 SOFTWARE ENGINEERING PROJECT MANAGER Manisha Denyrbacher Work Phone: [facility] 11-03-2023 14:06-0400 Body weight 140.61 kg SOFTWARE ENGINEERING PROJECT MANAGERJosé Miguel Barclayrbacher Work Phone: [facility] 11-03-2023 14:06-0400 Diastolic blood pressure 78 mm[Hg] SOFTWARE ENGINEERING PROJECT MANAGERJosé Miguel Barclayrbacher Work Phone: [facility] 11-03-2023 14:06-0400 Heart rate 105 /min SOFTWARE ENGINEERING PROJECT MANAGERJosé Miguel Barclayrbacher Work Phone: [facility] 11-03-2023 14:06-0400 SaO2% (BldA) [Mass fraction] 98 % SOFTWARE ENGINEERING PROJECT MANAGERJosé Miguel Barclayrbacher Work Phone: [facility] 11-03-2023 14:06-0400 Systolic blood pressure 118 mm[Hg] SOFTWARE ENGINEERING PROJECT MANAGERJosé Miguel Barclayrbacher Work Phone: [facility] 10-08-2023 10:50-0500 Body height 162.56 cm SOFTWARE ENGINEERING PROJECT MANAGERJosé Miguel Barclayrbacher Work Phone: [facility] 10-08-2023 10:50-0500 Body weight 139.25 kg SOFTWARE ENGINEERING PROJECT MANAGERJosé Miguel Barclayrbacher Work Phone: [facility] 10-01-2023 09:20-0500 Body height 162.56 cm SOFTWARE ENGINEERING PROJECT MANAGERJosé Miguel Barclayrbacher Work Phone: [facility] 10-01-2023 09:20-0500 Body mass index (BMI) [Ratio] 53.6 kg/m2 SOFTWARE ENGINEERING PROJECT MANAGERJosé Miguel Barclayrbacher Work Phone: [facility] 10-01-2023 09:20-0500 Body weight 141.69 kg SOFTWARE ENGINEERING PROJECT MANAGERJosé Miguel Barclayrbacher Work Phone: [facility] 10-01-2023 09:20-0500 Diastolic blood pressure 75 mm[Hg] SOFTWARE ENGINEERING PROJECT MANAGERJosé Miguel Barclayrbacher Work Phone: [facility] 10-01-2023 09:20-0500 Heart rate 85 /min SOFTWARE ENGINEERING PROJECT MANAGERJosé Miguel Barclayrbacher Work Phone: [facility] 10-01-2023 09:20-0500 Respiratory rate 18 /min SOFTWARE ENGINEERING PROJECT MANAGER Manisha Parksacher Work Phone: [facility] 10-01-2023 09:20-0500 SaO2% (BldA) [Mass fraction] 99 % SOFTWARE ENGINEERING PROJECT MANAGERJosé Miguel Barclayrbacher Work Phone: [facility] 10-01-2023 09:20-0500 Systolic blood pressure 123 mm[Hg] SOFTWARE ENGINEERING PROJECT MANAGER Manisha Barclayrbacher Work Phone: [facility] 09-03-2023 08:00-0500 Body height 162.56 cm SOFTWARE ENGINEERING PROJECT MANAGER Manisha Parksacher Work Phone: [facility] 09-03-2023 08:00-0500 Body weight 138.79 kg SOFTWARE ENGINEERING PROJECT MANAGER Manisha Parksacher Work Phone: [facility] 09-03-2023 08:00-0500 Diastolic blood pressure 78 mm[Hg] SOFTWARE ENGINEERING PROJECT MANAGER Manisha Parksacher Work Phone: [facility] 09-03-2023 08:00-0500 Systolic blood pressure 118 mm[Hg] SOFTWARE ENGINEERING PROJECT MANAGER Manisha Barclayrbacher Work Phone: [facility] 08-19-2023 09:45-0500 Body height 162.56 cm Nely Cruz Other [facility] 08-13-2023 14:00-0500 Body height 162.56 cm Manisha Marc Other [facility] 08-13-2023 14:00-0500 Body mass index (BMI) [Ratio] 52.35 kg/m2 Manisha Marc Other [employer] [facility] [employer] Other 08-13-2023 14:00-0500 Body weight 138.35 kg Manisha Marc Other [facility] Other 08-13-2023 14:00-0500 Body weight 138.34 kg SOFTWARE ENGINEERING PROJECT MANAGER Manisha Tari Work Phone: [facility] 08-13-2023 14:00-0500 Diastolic blood pressure 80 mm[Hg] Manisha Marc Other [facility] 08-13-2023 14:00-0500 SaO2% (BldA) [Mass fraction] 98 % Manishawilfredo Marc Other [facility] Other 08-13-2023 14:00-0500 Systolic blood pressure 114 mm[Hg] Manisha Marc Other [facility] 07-15-2023 07:45-0500 Body height 162.56 cm [employer] Other [facility] 07-15-2023 07:45-0500 Body mass index (BMI) [Ratio] 52.98 kg/m2 [employer] Other [facility] Other 07-15-2023 07:45-0500 Body weight 140.03 kg [employer] Other [facility] Other 07-15-2023 07:45-0500 Body weight 140.02 kg ROSITA Marc Work Phone: [facility] 07-15-2023 07:45-0500 Diastolic blood pressure 66 mm[Hg] [employer] Other [facility] 07-15-2023 07:45-0500 Respiratory rate 18 /min [employer] Other [facility] Other 07-15-2023 07:45-0500 SaO2% (BldA) [Mass fraction] 98 % [employer] Other [facility] Other 07-15-2023 07:45-0500 Systolic blood pressure 112 mm[Hg] Celio Mullins Other [facility] 07-07-2023 11:15-0500 Body height 162.56 cm Michelle Haynesmond Other [facility] 07-07-2023 11:15-0500 Body mass index (BMI) [Ratio] 52.69 kg/m2 Michelle Oma Other [facility] Other 07-07-2023 11:15-0500 Body temperature 98 [degF] Michelle Oma Other [facility] Other 07-07-2023 11:15-0500 Body weight 139.26 kg Michelle Oma Other [facility] Other 07-07-2023 11:15-0500 Body weight 139.25 kg ROSITA Marc Work Phone: [facility] 07-07-2023 11:15-0500 Respiratory rate 20 /min Michelle Haynesmond Other [facility] Other 07-07-2023 11:15-0500 SaO2% (BldA) [Mass fraction] 98 % Michelle Oma Other [facility] Other 06-29-2023 10:20-0500 Body height 162.56 cm Michelle Oma Other [facility] Other 06-29-2023 10:20-0500 Body mass index (BMI) [Ratio] 53.03 kg/m2 Michelle Oma Other [facility] Other 06-29-2023 10:20-0500 Body temperature 99.7 [degF] Michelle Ernandez Other [facility] Other 06-29-2023 10:20-0500 Body weight 140.16 kg Michelle Ernandez Other [facility] Other 06-29-2023 10:20-0500 Respiratory rate 19 /min Michelle Ernandez Other [facility] Other 06-29-2023 10:20-0500 SaO2% (BldA) [Mass fraction] 98 % Michelle Ernandez Other [facility] Other 06-11-2023 15:30-0400 Body height 162.56 cm Manisha Marc Other [facility] Other 06-11-2023 15:30-0400 Body mass index (BMI) [Ratio] 53.79 kg/m2 Manisha Marc Other [facility] Other 06-11-2023 15:30-0400 Body weight 142.16 kg Manisha Marc Other [facility] Other 06-11-2023 15:30-0400 Diastolic blood pressure 62 mm[Hg] Manisha Marc Other [facility] Other 06-11-2023 15:30-0400 SaO2% (BldA) [Mass fraction] 99 % Manisha Marc Other [facility] Other 06-11-2023 15:30-0400 Systolic blood pressure 126 mm[Hg] Manisha Marc Other [facility] Other 05-06-2023 13:40-0400 Body height 162.56 cm Casandra Sonya Other [facility] Other 05-06-2023 13:40-0400 Body mass index (BMI) [Ratio] 53.65 kg/m2 Casandra Sonya Other [facility] Other 05-06-2023 13:40-0400 Body temperature 98.4 [degF] Casandra Sonya Other [facility] Other 05-06-2023 13:40-0400 Body weight 141.8 kg Casandra Sonya Other [facility] Other 05-06-2023 13:40-0400 Diastolic blood pressure 81 mm[Hg] Casandramila Hassan Other [facility] Other 05-06-2023 13:40-0400 Respiratory rate 18 /min Casandra Sonya Other [facility] Other 05-06-2023 13:40-0400 SaO2% (BldA) [Mass fraction] 95 % Casandra Sonya Other [facility] Other 05-06-2023 13:40-0400 Systolic blood pressure 134 mm[Hg] Casandra Hassan Other [facility] Other 04-30-2023 08:30-0400 Body height 162.56 cm Manisha Marc Other [facility] Other 04-30-2023 08:30-0400 Body mass index (BMI) [Ratio] 53.86 kg/m2 Manisha Keaner Other [facility] Other 04-30-2023 08:30-0400 Body weight 142.34 kg Manisha Parksgareth Other [facility] Other 04-30-2023 08:30-0400 Diastolic blood pressure 82 mm[Hg] Manisha Tari Other [facility] Other 04-30-2023 08:30-0400 SaO2% (BldA) [Mass fraction] 100 % Manisha Barclayfani Other [facility] Other 04-30-2023 08:30-0400 Systolic blood pressure 120 mm[Hg] Manisha Barclayfani Other [facility] Other 04-29-2023 07:00-0400 Body height 162.56 cm Nely Songza Other [facility] Other 04-29-2023 07:00-0400 Body mass index (BMI) [Ratio] 54.41 kg/m2 Nely Fitt Other [facility] Other 04-29-2023 07:00-0400 Body weight 143.79 kg Nely Fitt Other [facility] Other 03-25-2023 13:45-0400 Body height 162.56 cm Celio Mullins Other [facility] Other 03-25-2023 13:45-0400 Body mass index (BMI) [Ratio] 55.45 kg/m2 Celio Mullins Other [facility] Other 03-25-2023 13:45-0400 Body weight 146.56 kg Celio Mullins Other [facility] Other 03-25-2023 13:45-0400 Diastolic blood pressure 57 mm[Hg] Celio Mullins Other [facility] Other 03-25-2023 13:45-0400 Respiratory rate 18 /min Celio Mullins Other [facility] Other 03-25-2023 13:45-0400 SaO2% (BldA) [Mass fraction] 97 % Celio Mullins Other [facility] Other 03-25-2023 13:45-0400 Systolic blood pressure 106 mm[Hg] Celio Mullins Other [facility] Other 02-11-2023 12:15-0400 Body height 163.83 cm Casandra Hassan Other [facility] Other 02-11-2023 12:15-0400 Body mass index (BMI) [Ratio] 54.88 kg/m2 Casandra Hassan Other [facility] Other 02-11-2023 12:15-0400 Body temperature 98 [degF] Casandra Hassan Other [facility] Other 02-11-2023 12:15-0400 Body weight 147.33 kg Casandra Hassan Other [facility] Other 02-11-2023 12:15-0400 Diastolic blood pressure 85 mm[Hg] Casandra Hassan Other [facility] Other 02-11-2023 12:15-0400 Respiratory rate 18 /min Casandra Hassan Other [facility] Other 02-11-2023 12:15-0400 SaO2% (BldA) [Mass fraction] 98 % Casandra Hassan Other [facility] Other 02-11-2023 12:15-0400 Systolic blood pressure 128 mm[Hg] Casandra Hassan Other [facility] Other 07-13-2022 11:15-0500 Body height 163.83 cm Michelle Haynesmond Other [facility] Other 07-13-2022 11:15-0500 Body mass index (BMI) [Ratio] 51.54 kg/m2 Michelle Haynesmond Other [facility] Other 07-13-2022 11:15-0500 Body temperature 96.6 [degF] Michelle Haynesmond Other [facility] Other 07-13-2022 11:15-0500 Body weight 138.35 kg Michelle Haynesmond Other [facility] Other 07-13-2022 11:15-0500 Respiratory rate 18 /min Michelle Oma Other [facility] Other 07-13-2022 11:15-0500 SaO2% (BldA) [Mass fraction] 96 % Michelle Oma Other [facility] Other 07-06-2021 13:00-0500 Body height 163.83 cm Michelle Oma Other [facility] Other 07-06-2021 13:00-0500 Body mass index (BMI) [Ratio] 49 kg/m2 Michelle Oma Other [facility] Other 07-06-2021 13:00-0500 Body temperature 97.5 [degF] Michelle Oma Other [facility] Other 07-06-2021 13:00-0500 Body weight 131.54 kg Michelle Oma Other [facility] Other 07-06-2021 13:00-0500 SaO2% (BldA) [Mass fraction] 96 % Michelle Oma Other [facility] Other 06-17-2021 11:00-0400 Body height 163.83 cm Michelle Oma Other [facility] Other 06-17-2021 11:00-0400 Body mass index (BMI) [Ratio] 49.68 kg/m2 Michelle Oma Other [facility] Other 06-17-2021 11:00-0400 Body temperature 98.3 [degF] Michelle Oma Other [facility] Other 06-17-2021 11:00-0400 Body weight 133.36 kg Michelle Oma Other [facility] Other 06-17-2021 11:00-0400 Respiratory rate 18 /min Michelle Oma Other [facility] Other 06-17-2021 11:00-0400 SaO2% (BldA) [Mass fraction] 96 % Michelle Oma Other [facility] Other 05-31-2021 13:50-0400 Body height 163.83 cm Michelle Ernandez Other [facility] Other 05-31-2021 13:50-0400 Body mass index (BMI) [Ratio] 50.36 kg/m2 Michelle Haynesmond Other [facility] Other 05-31-2021 13:50-0400 Body temperature 97.8 [degF] Michelle Ernandez Other [facility] Other 05-31-2021 13:50-0400 Body weight 135.17 kg Michelle Ernandez Other [facility] Other 05-31-2021 13:50-0400 Diastolic blood pressure 90 mm[Hg] Michelle Ernandez Other [facility] Other 05-31-2021 13:50-0400 Respiratory rate 18 /min Michelle Ernandez Other [facility] Other 05-31-2021 13:50-0400 SaO2% (BldA) [Mass fraction] 98 % Michelle Ernandez Other [facility] Other 05-31-2021 13:50-0400 Systolic blood pressure 150 mm[Hg] Michelle Oma Other [facility] Other Encounters Encounter Date Encounter Type Care Provider Facility Start: 06-15-2024 End: 06-15-2024 ambulatory SOFTWARE ENGINEERING PROJECT MANAGER Manisha Marc Work Phone: [facility] Work Phone: Start: 06-15-2024 End: 06-15-2024 Patient encounter procedure SOFTWARE ENGINEERING PROJECT MANAGERJosé Miguel Marc Work Phone: [facility] Work Phone: Start: 06-07-2024 Non-patient / Non-visit SOFTWARE ENGINEERING PROJECT MANAGERJosé Miguel Keaner Work Phone: [facility] Work Phone: Start: 05-13-2024 ambulatory Edward Richey acility:[facility] Start: 05-13-2024 Registered Recurring SOFTWARE ENGINEERING PROJECT MANAGERJosé Miguel Marc Work Phone: [facility] Start: 04-21-2024 End: 04-21-2024 ambulatory ROSITA Marc Work Phone: [facility] Work Phone: Start: 04-21-2024 End: 04-21-2024 Patient encounter procedure SOFTWARE ENGINEERING PROJECT MANAGERJosé Miguel Marc Work Phone: [facility] Work Phone: Start: 04-15-2024 Non-patient / Non-visit ROSITA Marc Work Phone: [facility] Work Phone: Start: 04-12-2024 Non-patient / Non-visit ROSITA Keaner Work Phone: [facility] Work Phone: Start: 04-03-2024 Registered Recurring SOFTWARE ENGINEERING PROJECT MANAGERJosé Miguel Keaner Work Phone: [facility] [employer] Start: 03-16-2024 End: 03-16-2024 ambulatory MELA ANDERSON Not Available Start: 01-19-2024 End: 01-19-2024 ambulatory Bud Combs MD Facility:[facility] Start: 01-01-2024 Registered Recurring SOFTWARE ENGINEERING PROJECT MANAGERJosé Miguel Rich gloriasudheer Marc Work Phone: [facility] Start: 11-26-2023 End: 11-26-2023 ambulatory SOFTWARE ENGINEERING PROJECT MANAGER Manisha Tari Work Phone: [facility] Work Phone: Start: 11-26-2023 End: 11-26-2023 Patient encounter procedure SOFTWARE ENGINEERING PROJECT MANAGER Manisha Tari Work Phone: [facility] Work Phone: Start: 11-03-2023 End: 11-03-2023 ambulatory SOFTWARE ENGINEERING PROJECT MANAGER Manisha Tari Work Phone: [facility] Work Phone: Start: 11-03-2023 End: 11-03-2023 Patient encounter procedure ROSITA Thaoniamita Marc Work Phone: [facility] Work Phone: Start: 11-03-2023 End: 11-03-2023 ambulatory TOBIAS GIVENSO Not Available Start: 10-30-2023 Non-patient / Non-visit SOFTWARE ENGINEERING PROJECT MANAGER Manisha Tari Work Phone: [facility] Work Phone: Start: 10-08-2023 End: 10-08-2023 Patient encounter procedure SOFTWARE ENGINEERING PROJECT MANAGERJosé Miguel ThaoManisha Tari Work Phone: [facility] [place] Work Phone: Start: 10-08-2023 End: 10-08-2023 ambulatory SOFTWARE ENGINEERING PROJECT MANAGERJosé Miguel ThaoManishaamita Marc Work Phone: [facility] Work Phone: Start: 10-06-2023 Non-patient / Non-visit ROSITA Marc Work Phone: [facility] Work Phone: Start: 10-06-2023 End: 10-06-2023 ambulatory [facility] Start: 10-01-2023 End: 10-01-2023 Patient encounter procedure ROSITA Marc Work Phone: [facility] Work Phone: Start: 10-01-2023 End: 10-01-2023 ambulatory ROSITA Marc Work Phone: [facility] Work Phone: Start: 09-10-2023 Registered Recurring ROSITA Marc Work Phone: [facility] Start: 09-08-2023 End: 09-08-2023 ambulatory Bud Combs MD Facility:[facility] Start: 09-03-2023 End: 09-03-2023 Patient encounter procedure ROSITA Marc Work Phone: [facility]- Start: 08-19-2023 IBT FOR OBESITY GROU P 2-10 30M Neyl Cruz [facility] Start: 08-19-2023 End: 08-19-2023 ambulatory Manisha Marc [facility] [employer] Other Start: 08-19-2023 Registered Recurring ROSITA Marc Work Phone: [facility] Work Phone: Start: 08-19-2023 End: 08-19-2023 Patient encounter procedure ROSITA Marc Work Phone: [facility] Work Phone: Start: 08-14-2023 Registered Recurring ROSITA Marc Work Phone: [facility] Start: 08-13-2023 End: 08-13-2023 ambulatory Manisha aMrc Other [facility] Other Start: 08-13-2023 Office outpatient visit 15 minutes Manisha Marc [facility] Start: 08-13-2023 End: 08-13-2023 Patient encounter procedure SOFTWARE ENGINEERING PROJECT MANAGERJosé Miguel Marc Work Phone: [facility] Work Phone: Start: 07-24-2023 End: 07-24-2023 ambulatory MELA ANDERSON Not Available Start: 07-21-2023 End: 07-21-2023 ambulatory Bud Combs MD Facility:[facility] Start: 07-19-2023 End: 07-19-2023 ambulatory ROSITA Marc Work Phone: [facility] Work Phone: Start: 07-19-2023 End: 07-19-2023 Patient encounter procedure SOFTWARE ENGINEERING PROJECT MANAGERJosé Miguel Marc Work Phone: [facility] Start: 07-15-2023 End: 07-15-2023 ambulatory Celio Mullins Other [facility] Other Start: 07-15-2023 Follow-up encounter Celio Mullins [facility] Start: 07-15-2023 End: 07-15-2023 Patient encounter procedure SOFTWARE ENGINEERING PROJECT MANAGERJosé Miguel Marc Work Phone: [facility] Work Phone: Start: 07-07-2023 End: 07-07-2023 ambulatory Michelle Ernandez Other [facility] Other Start: 07-07-2023 Office outpatient visit 15 minutes Michelle Ernandez [facility] Start: 07-07-2023 End: 07-07-2023 Patient encounter procedure SOFTWARE ENGINEERING PROJECT MANAGERJosé Miguel Keaner Work Phone: [facility] Work Phone: Start: 07-03-2023 Registered Recurring SOFTWARE ENGINEERING PROJECT MANAGERJosé Miguel Rich axel Marc Work Phone: [facility] Start: 07-03-2023 End: 07-03-2023 Patient encounter procedure SOFTWARE ENGINEERING PROJECT MANAGER Manisha Tari Work Phone: [facility] [place] Work Phone: Start: 07-03-2023 End: 07-03-2023 ambulatory ROSITA Dyer Tari Work Phone: [facility] Work Phone: Start: 07-01-2023 End: 07-01-2023 Patient encounter procedure SOFTWARE ENGINEERING PROJECT MANAGERJosé Miguel Dyer Tari Work Phone: [facility] [place] Work Phone: Start: 07-01-2023 End: 07-01-2023 ambulatory Manisha Marc Facility:[facility] Start: 06-29-2023 End: 06-29-2023 ambulatory Michelle Ernandez Other [employer] [facility] [employer] Other Start: 06-29-2023 Office outpatient visit 15 minutes Michelle Ernandez [facility] Start: 06-17-2023 Registered Recurring SOFTWARE ENGINEERING PROJECT MANAGER Layla castrosudheer Marc Work Phone: [facility] Work Phone: Start: 06-11-2023 End: 06-11-2023 ambulatory Manisha Marc Other [facility] Other Start: 06-11-2023 Office outpatient visit 25 minutes Manisha Marc [facility] Start: 05-06-2023 End: 05-06-2023 ambulatory Casandra Hassan Other [facility] Other Start: 05-06-2023 Office outpatient visit 10 minutes Casandra Hassan [facility] Start: 05-01-2023 End: 05-01-2023 ambulatory Manisha Barclayfani Other [facility] Other Start: 05-01-2023 Telephone encounter Manisha Jacky desai [facility] Start: 04-30-2023 End: 04-30-2023 ambulatory Manisha Tari Other [facility] Other Start: 04-30-2023 Encounter for genera l adult medical examination without abnormal findings Manisha Tari [facility] Start: 04-30-2023 Periodic preventive med est patient 18-39 yrs Manisha Marc [facility] Start: 04-29-2023 ([facility]) [facility] Initial Provider Nely Cruz [facility] Start: 04-29-2023 End: 04-29-2023 ambulatory Nely Cruz Other [facility] Other Start: 03-25-2023 End: 03-25-2023 ambulatory Celio Mullins Other [facility] Other Start: 03-25-2023 Nutrition therapy Celio Mullins [facility] Start: 03-25-2023 Telephone encounter Celio Mullins [facility] Start: 03-14-2023 End: 03-14-2023 ambulatory Nely Cruz Other [facility] Other Start: 03-14-2023 Telephone encounter Nely Cruz [facility] Start: 02-11-2023 End: 02-11-2023 ambulatory Casandra Hassan Other [facility] Other Start: 02-11-2023 Office outpatient visit 15 minutes Casandra Hassan [facility] Start: 12-31-2022 End: 01-01-[address] TOBIAS OSCAR . Facility:[facility] Start: 11-26-2022 End: 11-27-[address] TOBIAS OSCAR . Facility:[facility] Start: 11-08-2022 End: 11-09-[address] BOOM ROD Facility:[facility] Start: 10-28-2022 End: 10-28-[address] TOBIAS OSCAR . Facility:[facility] Start: 07-13-2022 End: 07-13-2022 ambulatory Michelle Oma Other [facility] Other Start: 07-13-2022 Office outpatient visit 15 minutes Michelle Oma [facility] Start: 03-07-2022 End: 03-08-[address] BOOM ROD Facility:[facility] Start: 01-25-2022 Encounter for genera l adult medical examination without abnormal findings DR BOOM ROD [facility] Start: 01-21-2022 End: 01-22-[address] BOOM ROD Facility:[facility] Start: 01-21-2022 End: 01-22-2022 Encounter for general adult medical examination without abnormal findings DR BOOM ROD Facility:[facility] Start: 07-06-2021 End: 07-06-2021 ambulatory Michelle Ernandez Other [facility] Other Start: 07-06-2021 Office outpatient visit 15 minutes Michelle Oma [facility] Start: 06-17-2021 Office outpatient visit 15 minutes Michelle Oma [facility] Start: 05-31-2021 Office outpatient visit 25 minutes Michelle Oma [facility] Start: 08-27-2018 End: 08-27-2018 ambulatory BRENT KINNEY Facility:[facility] Procedures Date Procedure Procedure Detail Performing Clinician Start: 10-08-2023 MRI of head ROSITA Marc Work Phone: Start: 05-31-2021 Piperacillin/tazobactam Michelle Oma Other Start: 08-27-2018 extraction, erupted tooth or exposed root (elevation and/or forceps removal) BRENT TROCONIS Start: 08-27-2018 removal of impacted tooth - soft tissue BERNT TROCONIS Start: 08-27-2018 Urine test visual color cmprsn meths BRENT MENDOZACONTARAH Plan of Treatment Date Care Activity Detail Author Comprehensive metabo lic 2000 panel - Serum or Plasma [facility] enter Holter monitor study [facility] MR Unspecified body region F [facility] Urine culture [facility] Immunizations Immunization Date Immunization Notes Care Provider Lillie rogers 03-03-2021 Do not use COVID-19 Pfizer 2 dose Manisha Marc Other [facility] 02-10-2021 Do not use COVID-19 Pfizer 2 dose Manisha Marc Other [facility] 08-03-2018 Toradol per 15 mg Michelle Kimberlyn onjackie Other [facility] Other Payers Date Payer Category Payer Self-pay [id number] 2022 Self-pay [id number] 2022 Private Health Insurance 1991 Unknown [id number] 1991 Unknown [id number] 2.840.1.319687.3.579.2. 593 1991 Unknown [id number] 2.840.1.198999.3.579.2. 593 1991 Unknown [id number] 2.840.1.458199.3.579.2. 593 1991 Unknown [id number] 2.840.1.192594.3.579.2. 593 1991 Unknown [id number] 2.16.840.1.828509.3.579.2. 593 1991 Unknown [id number] 2.16.840.1.226853.3.579.2. 593 1991 Unknown [id number] 2.16.840.1.784412.3.579.2. 196 1991 Unknown [id number] 2.16.840.1.533787.3.579.2. 196 1991 Unknown [id number] 2.16.840.1.593576.3.579.2. 196 1991 Unknown [id number] 2.16.840.1.608496.3.579.2. 196 1991 Unknown [id number] 2.16.840.1.305398.3.579.2. 1259 1991 Unknown [id number] 2.16.840.1.302337.3.579.2. 1259 1991 Unknown [id number] 2.16.840.1.420232.3.579.2. 1259 1959 Medicaid [id number] 1959 Unknown [id number] Unknown [facility] [id number] Unknown [id number] 2.16.840.1.533000.3.579.2. 531 Unknown [id number] 2.16.840.1.880820.3.579.2. 531 Unknown [id number] 2.16.840.1.622176.3.579.2. 531 Unknown [id number] 2.16.840.1.342836.3.579.2. 531 Unknown [id number] 2.16.840.1.036627.3.579.2. 531 Unknown [id number] 2.16.840.1.548868.3.579.2. 531 Unknown [id number] 2.16.840.1.973208.3.579.2. 531 Social History Date Type Detail Facility Unknown if ever smoked [facility] Other Sex Assigned At Sex Assigned At Bir th [facility] Other Start: 12-07-2021 End: 11-26-2023 Tobacco smoking status NHIS Never smoked tobacco (finding) [facility] Start: 1990 Sex Assigned At Female F [facility] Clinical Notes 05-31-2021 to 08-19-2023 Note Date [...] method for meal planning ; grocery shortcuts [facility] Other 12-27-2023 Evaluation note* Encounter Date Diagnosis [...] You have been given relevant education handouts. [facility] Other 11-28-2023 Evaluation note* Encounter Date Diagnosis [...] voice recognition software. Please excuse errors in didactic instructor. Jun, Dietary surveillance and counseling (ICD-10 - [...] metformin 1000 mg total daily, managed by PROPERTY [employer]POS[employer]ICER Jun, Asthma (ICD-10 - J45.909) Jun, Migraine (ICD-10 - G43.909) Jun, Primary hypertension (ICD-10 - I10) Currently on pharmacotherapy Potential for overtreatment given lightheadedness Jun, Other An additional 9 minutes was spent counseling the patient on behavior modification including proper nutrition and physical activity. [facility] Other 11-20-2023 Evaluation note* Encounter Date Diagnosis [...] until you feel better. You may take [id number] Imodium for diarrhea as needed. Avoid dairy foods as well as greasy fried foods. Follow-up with your physician if no improvement in 2 to 3 days. May return to work on Jun, Diarrhea, unspecified type (ICD-10 - R19.7) Diarrhea: adult home care material was printed [facility] Other 11-12-2023 Evaluation note* Encounter Date Diagnosis [...] to 3-day Jun, Bronchitis (ICD-10 - J40) [facility] Other 10-25-2023 Evaluation note* Encounter Date Diagnosis Assessment Notes Treatment Notes Treatment Clinical Notes May, Degenerative lumbar disc (ICD-10 - M51.36) L4-5 Pt would like a referral to pain management regarding her chronic back pain. Her last x-ray of the lumbar spine was completed 10/2022 at [facility]--reviewed and in scanned documents. Referral [...] disorder (ICD-10 - F31.81) Referral placed to [facility] for medication mangement. [facility] Other 09-19-2023 Evaluation note* Encounter Date Diagnosis Assessment Notes Treatment Notes Treatment Clinical Notes Apr, Exposure to head lice (ICD-10 - Z20.7) Discussed with patient exam is without any signs of current lice infection. May return to work tomorrow. Patient completed next treatment yesterday. Patient verbalized understanding. [facility] Other 09-14-2023 Evaluation note* Encounter Date Diagnosis Assessment Notes Treatment Notes Treatment Clinical Notes Apr, Primary hypertension (ICD-10 - I10) [facility] Other 09-13-2023 Evaluation note* Encounter Date Diagnosis [...] (ICD-10 - R73.01) Will obtain records from [facility] for most recent labs. Patient is [...] Low back pain, unspecified (ICD-10 - M54.50) [facility] Other 09-12-2023 Evaluation note* Encounter Date Diagnosis [...] 2) Aim for < 45 g carb/meal [facility] Other 08-08-2023 Evaluation note* Encounter Date Diagnosis [...] voice recognition software. Please excuse errors in didactic instructor. Mar, Dietary surveillance and counseling (ICD-10 - [...] as sweet tea, replace ice cream with Mongolian yogurt, use protein shake in the a.m. [...] with the patient, and documenting clinical information. [facility] Other 06-27-2023 Evaluation note* Encounter Date Diagnosis [...] 7 days, sooner if significantly worsening symptoms. [facility] Other 11-26-2022 Evaluation note* Encounter Date Diagnosis [...] 3 days. Off work today and tomorrow [facility] Other 11-19-2021 Evaluation note* Encounter Date Diagnosis [...] Patient care instructions given in writting by [employer] document. [facility] Other 10-31-2021 Evaluation note* Encounter Date Diagnosis [...] Patient care instructions given in writting by [employer] document. [facility] Other 10-14-2021 Evaluation note* Encounter Date Diagnosis Assessment Notes Treatment Notes Treatment Clinical Notes May, Dysuria (ICD-10 - R30.0) May, Urinary tract infection, site not specified (ICD-10 - N39.0) May, Hematuria, unspecified (ICD-10 - R31.9) [employer] [facility] [employer] Other evaluation [facility]No [facility] [employer] Other evaluation noteNo assessment information available [facility] Work Phone: evalukdoui note* Diagnosis Onset Date Resolution Status Dietary surveillance and counseling acute Exercise counseling acute Food insecurity acute PCOS (polycystic ovarian syndrome) acute Prediabetes acute Severe obesity (BMI >= 40) a [facility] Work Phone: evaluation note* Diagnosis Onset Date Resolution Status Dietary surveillance and counseling acute Exercise counseling acute Food insecurity acute PCOS (polycystic ovarian syndrome) acute Prediabetes acute Severe obesity (BMI >= 40) a cute Lightheadedness acute Menorrhagia acute Palpitations acute [facility] Work Phone: evaluation note* Diagnosis Onset Date Resolution Status Dietary surveillance and counseling acute Exercise counseling acute Food insecurity acute PCOS (polycystic ovarian syndrome) acute Prediabetes acute Severe obesity (BMI >= 40) a cute Lightheadedness acute Menorrhagia acute Palpitations acute Dietary surveillance and counseling acute Exercise counseling acute Severe obesity (BMI >= 40) a [facility] Work Phone: evaluation note* Diagnosis Onset Date Resolution Status Lightheadedness acute Menorrhagia acute Palpitations acute Dietary surveillance and counseling acute Exercise counseling acute Severe obesity (BMI >= 40) a [facility] Work Phone: evaluation note* Diagnosis Onset Date Resolution Status Aphasia acute History of seizures acute Memory loss acute Migraine acute [facility] Work Phone: evaluation note* Diagnosis Onset Date Resolution Status Aphasia acute Apnea acute Fatigue acute History of seizures acute Loud snoring acute Memory loss acute Migraine acute Morbid obesity acute Acute UTI acute [facility] Work Phone: history general Narrative - Reported* [...] History Hospitalized for blood l oss 2010 [facility] Other history general Narrative - Reported* Type [...] Pneumonia Hospitalization History Hospitalized for blood l [place] 2010 [facility] Other history general Narrative - Reported* Type [...] Pneumonia Hospitalization History Hospitalized for blood l [place] 2010 [facility] Other history general Narrative - Reported* Type [...] Pneumonia Hospitalization History Hospitalized for blood l [place] 2010 [facility] Other history general Narrative - Reported* Type [...] History Hospitalized for blood l oss 2010 [facility] Other history general Narrative - Reported* Type [...] History Hospitalized for blood l oss 2010 [facility] Other Hisujnp general Narrative - Reported* Type Description Date [...] History Hospitalized for blood l oss 2010 [facility] Other Reason for referral (narrative)* Reason *FU 06/20 would li ke a referral to pscyiatrist -- was recently diagnosed with bipolar and would like medication management. Diagnosis 1 Bipolar 2 disorder ( F31.81) Referral Organization [facility] Damion tsang Referring Provider First Name Manisha Referring Provider Last Name Tari Referring Provider Specialty Nurse Luist ernesto Referred Organization [facility] [place] Referred Address [address],[place], [place],[address] Referred Provider Specialty Psychiatry Referral Priority Routine General Notes Paola Henderson 01:25:30 PM >received today, not sure if [facility] does medication management, waiting for notes to be locked Paola Henderson 06/13/2023 10:34:39 AM >notes locked, referral faxed Clinical Notes p: [phone] f: [id number] [place] [facility] Reason *FU 06/20 would li yaneli a referral to pain management for other options for pain control for back pain Diagnosis 1 Degenerative lumbar disc (M51.36) Referral Organization [facility] sharan Referring Provider First Name Manisha Referring Provider Last Name Charlyacher Referring Provider Specialty Nurse Noble orozco Referred Organization [facility] Referred Provider Yrn Parsons Referred Address [address] [place], [place],[address] Referred Provider Specialty Pain Medicin e Referral Priority Routine General Notes Paola Henderson 01:21:23 PM >received today, waiting for notes to be locked Paola Henderson 06/13/2023 10:25:26 AM >notes locked, referral faxed Clinical Notes f: [phone] [facility] Other Summary Purpose Family History Relationship Condition Age at Onset Recorded Date/T [...] history of mental disorder Unknown Advance Directives Advance Directive Response Recorded Date/ [...] 41) Chief Complaint Low Bp-Med Discussio n BH Obesity 6 Month Follow Up g40.909 heart [...] Aphasia History of seizures Memory loss Migraine Chief Complaint Memory Concerns BH possible UTI, cramping, frequency Reason for Visit Aphasia Apnea Fatigue History of seizures Loud snoring Memory loss Migraine Morbid obesity Acute UTI Additional Source Comments INFORMATION SOURCE (unrecogn ized section and content) DATE CREATED AUTHOR 08/27/2021 [facility] DATE CREATED AUTHOR AUTHOR'S ORGANIZ ATION 01/01/2023 [facility] DATE CREATED AUTHOR AUTHOR'S ORGANIZ ATION 01/30/2024 [facility] DATE CREATED AUTHOR AUTHOR'S ORGANIZ ATION 03/18/2024 [facility] [facility] DATE CREATED AUTHOR AUTHOR'S ORGANIZ ATION 05/22/2024 [facility] REASON FOR VISIT (unrecogniz ed [...] Member Role Status Dates Manisha Marc APRN CONTINUOUS STILL OPERATOR-C Primary Care Provider Active Team Status: Active Member Role Status Dates Manisha Marc APRN CONTINUOUS STILL OPERATOR-C Primary Care Provider, Attending Provider Active Team Status: Inactive Member Role Status Dates Manisha Marc APRN CONTINUOUS STILL OPERATOR-C Primary Care Provider Active Celio Mullins DO Attending Provider Active Team Status: Inactive Member Role Status Dates Manisha Marc APRN CONTINUOUS STILL OPERATOR-C Primary Care Provider Active Clinton Frazier MD Attending Provider Active Team Status: Inactive Member Role Status Dates Manisha Marc APRN CONTINUOUS STILL OPERATOR-C Primary Care Provider Active Start: July 032022 End: July 03, 2023 Celio Mullins DO Attending Provider Active St art: July 03, 2023 End: July 03, 2023 Team Status: Active Member Role Status Dates Manisha Marc APRN CONTINUOUS STILL OPERATOR-C Primary Care Provider Active Start: July 032022 Edward Gilmore MD Attending Provider Active Start: July 03, 2023 Team Status: Inactive Member Role Status Dates Michelle Ernandez CONTINUOUS STILL OPERATOR-C Attending Provider Active S tart: July 07, 2023 End: July 07, 2023 Team Status: Inactive Member Role Status Dates Celio Mullins DO Attending Provider Active St art: July 15, 2023 End: July 15, 2023 Team Status: Inactive Member Role Status Dates Manisha Marc APRN CONTINUOUS STILL OPERATOR-C Primary Care Provider Active Start: July End: July 19, 2023 Clinton Frazier MD Attending Provider Active Start: July 19, 2023 End: July 19, 2023 Team Status: Inactive Member Role Status Dates Manisha Marc APRN CONTINUOUS STILL OPERATOR-C Attending Provider Act rafal Start: August 13, 2023 End: August 13, 2023 Team Status: Inactive Member Role Status Dates Nely Cage [facility] Attending Provider Active Start: August 19, 2023 End: August 19, 2023 Team Status: Active Member Role Status Dates Manisha Marc APRN CONTINUOUS STILL OPERATOR-C Primary Care Provider, Attending Provider Active Start: August 19, 2023 Team Status: Inactive Member Role Status Dates Manisha Marc APRN CONTINUOUS STILL OPERATOR-C Attending Provider Act rafal Start: September 03, 2023 End: September 03, 2023 Team Status: Inactive Member Role Status Dates Manisha Marc APRN CONTINUOUS STILL OPERATOR-C Primary Care Provider Active Start: October 012023 End: October 01, 2023 Celio Mullins DO Attending Provider Active St art: October 01, 2023 End: October 01, 2023 Team Status: Active Member Role Status Dates Manisha Marc APRN CONTINUOUS STILL OPERATOR-C Primary Care Provider Active Start: August 142022 Edward Gilmore MD Attending Provider Active Start: August 14, 2023 Team Status: Active Member Role Status Dates Manisha Marc APRN CONTINUOUS STILL OPERATOR-C Primary Care Provider, Attending Provider Active Start: October 06, 2023 Team Status: Inactive Member Role Status Dates Manisha Marc APRN CONTINUOUS STILL OPERATOR-C Primary Care Provider Active Start: October 082023 End: October 08, 2023 Akil Cox DO Attending Provider Active Start: October 08, 2023 End: October 08, 2023 Team Status: Active Member Role Status Dates Manisha Marc APRN CONTINUOUS STILL OPERATOR-C Primary Care Provider, Attending Provider Active Start: October 30, 2023 Team Status: Inactive Member Role Status Dates Manisha Marc APRN CONTINUOUS STILL OPERATOR-C Primary Care Provider, Attending Provider Active Start: November 03, 2023 End: November 03, 2023 Team Status: Active Member Role Status Dates Manisha Marc APRN CONTINUOUS STILL OPERATOR-C Primary Care Provider Active Start: August Edward Gilmore MD Attending Provider Active Start: September 10, 2023 Team Status: Inactive Member Role Status Dates Manisha Marc APRN CONTINUOUS STILL OPERATOR-C Primary Care Provider Active Start: November 26, 2023 End: November 26, 2023 Celio Mullins DO Attending Provider Active St art: November 26, 2023 End: November 26, 2023 Team Status: Active Member Role Status Dates Manisha Marc APRN CONTINUOUS STILL OPERATOR-C Primary Care Provider Active Start: January 01, 2024 Edward Gilmore MD Attending Provider Active Start: January 01, 2024 Team Status: Active Member Role Status Dates Manisha Marc APRN CONTINUOUS STILL OPERATOR-C Primary Care Provider Active Start: April 03, 2024 Edward Gilmore MD Attending Provider Active Start: April 03, 2024 Team Status: Active Member Role Status Dates Manisha Marc APRN CONTINUOUS STILL OPERATOR-C Primary Care Provider Active Start: April 12, 2024 Jaymie Griffin DO Attending Provider Active Start: April 12, 2024 Team Status: Inactive Member Role Status Dates Manisha Marc APRN CONTINUOUS STILL OPERATOR-C Primary Care Provider, Attending Provider Active Start: April 21, 2024 End: April 21, 2024 Team Status: Active Member Role Status Dates Manisha Marc APRN CONTINUOUS STILL OPERATOR-C Primary Care Provider Active Start: April 12, 2024 Agusto Rojas DO Attending Provider Active Sta rt: April 12, 2024 Team Status: Active Member Role Status Dates Manisha Marc APRN CONTINUOUS STILL OPERATOR-C Primary Care Provider Active Start: April 15, 2024 Agusto Rojas DO Attending Provider Active Sta rt: April 15, 2024 Team Status: Active Member Role Status Dates Manisha Marc APRN CONTINUOUS STILL OPERATOR-C Primary Care Provider Active Start: April 192023 Edward Gilmore MD Attending Provider Active Start: May 13, 2024 Team Status: Active Member Role Status Dates Manisha Marc APRN CONTINUOUS STILL OPERATOR-C Primary Care Provider, Attending Provider Active Start: June 07, 2024 Team Status: Inactive Member Role Status Dates Manisha Marc APRN CONTINUOUS STILL OPERATOR-C Primary Care Provider Active Start: May End: June 15, 2024 Casandra Hassan APRN Attending Provider Active Start: June 15, 2024 End: June 15, 2024 Goals (unrecognized section and content) Goals [...] BE BASED ON THE PRIMARY CLINICAL RECORDS. [facility]. provides no warranty or guarantee of the accuracy or completeness of information in this document.
--- NOTE | 2024-06-15 15:17 | CT_ITS ---
[address] [address] Patient Name: DIMITRY PACK MRN: [id number] date: 1990 Sex: F Assigned Patient Location: ER Current Patient Location: ER Accession/Order Number: [id number] Exam Date: 06/15/2024 15:41 Report Date: 06/15/2024 16:03 At the request of: MARIAMA CERVANTES Procedure: CT abdomen pelvis w con EXAMINATION: CT abdomen pelvis w con HISTORY: Abdominal pain ; bilateral quadrant pain, urinary tract infection COMPARISON: CT abdomen pelvis 01/30/2019 TECHNIQUE: Axial, Coronal, and Sagittal images were obtained without and/or with IV contrast as indicated by examination type. Dose reduction techniques were achieved by using automated exposure control and/or adjustment of mA and/or kV according to patient size and/or use of iterative reconstruction technique. FINDINGS: LUNG BASES: No visible pulmonary or pleural disease. LIVER: Fatty infiltration. BILIARY: Cholecystectomy. PANCREAS: No lesion, fluid collection, or abnormal duct dilatation. SPLEEN: No enlargement or focal lesion. ADRENALS: No mass or enlargement. KIDNEYS: Right periureteral stranding and haziness of the fat without appreciable stones, mass, or abnormal dilation. Unremarkable left ureter and bilateral kidneys. BOWEL/MESENTERY: No visible mass, obstruction, or bowel wall thickening. AORTA/VASCULAR: No aneurysm or dissection. RETROPERITONEUM: No mass or adenopathy. LYMPH NODES: No adenopathy. URINARY BLADDER: No visible focal wall thickening, lesion, or calculus. PELVIC ORGANS: No visible mass. Pelvic organs appropriate for patient age. ABDOMINAL WALL: No mass or hernia. BONES: No bony lesion or fracture. OTHER: Negative. CT/CT abdomen pelvis w con IMPRESSION: 1. Infectious or inflammatory appearance of the right ureter without appreciable stones or mass. Possible ascending urinary tract infection. No findings within the right kidney to suggest pyelonephritis. 2. Unremarkable left kidney and ureter. Electronically authenticated by: SUGEY MACDONALD Date: 06/15/2024 16:03
--- NOTE | 2024-06-15 15:20 | ED_ITS ---
HPI - Abdominal Pain General Chief Complaint: Abdominal Pain Stated Complaint: ABDOMINAL PAIN Time Seen by Provider: 06/15/24 15:14 Source: patient Mode of arrival: Wheelchair Limitations: no limitations History of Present Illness HPI narrative: Patient is a 33-year-old female who presents to the emergency department for 2- day history of right lower quadrant pain. She is tearful, anxious and agitated initial interview. She states she went to urgent care earlier today and was diagnosed with urinary tract infection. She has not filled the antibiotic that was prescribed for her. She states her pain worsened on the right side of the abdomen this afternoon which prompted her grandmother to bring her to the ER. She denies any fevers, vomiting or diarrhea. She feels nauseous. She has had no flank or back pain. She is unsure if she may be . Related Data Home Medications ?Medication ?Instructions ?Recorded ?Confirmed albuterol sulfate 90 mcg/actuation 2 inh inhalation Q6H PRN shortness 01/17/23 04/14/24 aerosol inhaler (ProAir HFA) of breath or wheezing gabapentin 300 mg capsule 300 mg PO Q12H PRN pain 01/17/23 04/14/24 metformin 500 mg tablet 500 mg PO BID 01/17/23 10/30/23 valacyclovir 1 gram tablet 1,000 mg PO BID 06/25/23 04/14/24 coenzyme Q10 100 mg capsule (Co 200 mg PO DAILY 10/30/23 10/30/23 Q-10) inositol 500 mg tablet 500 mg PO DAILY 10/30/23 10/30/23 lamotrigine 25 mg tablet (Lamictal) 25 mg PO Q12H 10/30/23 04/14/24 duloxetine 60 mg capsule,delayed mg PO 04/14/24 release lisinopril 10 mg tablet mg 04/14/24 metformin 500 mg tablet,extended mg PO 04/14/24 release 24 hr baclofen 10 mg tablet 10 mg PO TID 04/21/24 04/21/24 meloxicam 15 mg tablet 15 mg PO DAILY 04/21/24 04/21/24 Previous Rx's ?Medication ?Instructions ?Recorded clindamycin HCl 300 mg capsule 300 mg PO Q6H 10 days #40 caps 06/08/24 ibuprofen 800 mg tablet 800 mg PO Q8H PRN pain #20 tabs 06/08/24 ciprofloxacin HCl 500 mg tablet 500 mg PO Q12H #14 tabs 06/15/24 ketorolac 10 mg tablet 10 mg PO TID PRN pain #10 tabs 06/15/24 ondansetron 4 mg disintegrating 4 mg PO Q6H PRN nausea and 06/15/24 tablet vomiting #12 tabs Allergies Allergy/AdvReac Type Severity Reaction Status Date / Time amoxicillin Allergy Rash Verified 06/15/24 14:58 cefaclor Allergy Rash Verified 06/15/24 14:58 erythromycin base Allergy Hives Verified 06/15/24 14:58 Review of Systems ROS Constitutional Denies: fever or chills PFSH PFSH Medical History Herpes genitalia ?A60.00 - Herpesviral infection of urogenital system, unspecified (ICD-10) Back pain ?M54.9 - Dorsalgia, unspecified (ICD-10) Arthritis ?M19.90 - Unspecified osteoarthritis, unspecified site (ICD-10) Anemia ?D64.9 - Anemia, unspecified (ICD-10) Depression ?F32.A - Depression, unspecified (ICD-10) Anxiety ?F41.9 - Anxiety disorder, unspecified (ICD-10) COVID-19 ?U07.1 - COVID-19 (ICD-10) Asthma ?J45.909 - Unspecified asthma, uncomplicated (ICD-10) Seizures ?R56.9 - Unspecified convulsions (ICD-10) GERD (gastroesophageal reflux disease) ?K21.9 - Gastro-esophageal reflux disease without esophagitis (ICD-10) Sleep apnea ?G47.30 - Sleep apnea, unspecified (ICD-10) Palpitations ?R00.2 - Palpitations (ICD-10) Prediabetes ?R73.03 - Prediabetes (ICD-10) Hypertension ?I10 - Essential (primary) hypertension (ICD-10) PCOS (polycystic ovarian syndrome) ?E28.2 - Polycystic ovarian syndrome (ICD-10) Abnormal uterine bleeding (AUB) ?N93.9 - Abnormal uterine and vaginal bleeding, unspecified (ICD-10) Menorrhagia ?N92.0 - Excessive and frequent menstruation with regular cycle (ICD-10) Surgical History History of laparoscopy ?Z98.890 - Other specified postprocedural states (ICD-10) History of colposcopy ?Z98.890 - Other specified postprocedural states (ICD-10) History of wisdom tooth extraction ?K08.409 - Partial loss of teeth, unspecified cause, unspecified class (ICD- 10) History of cholecystectomy ?Z90.49 - Acquired absence of other specified parts of digestive tract (ICD- 10) Family History Other Family history of heart disease Family history of stroke Social History Within the past year, how often did you have a drink containing alcohol: monthly or less Smoking status: Never smoker 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 Highest level of school completed/degree received: Associate degree: occupational, technical, vocational program Little interest or pleasure in doing things: not at all Feeling down, depressed, or hopeless: not at all Exam Constitutional Vital Signs, click to edit/add: Last Vital Signs Temp 99.3 F 06/15/24 14:58 Pulse 84 06/15/24 16:20 Resp 18 06/15/24 16:20 BP 164/87 H 06/15/24 16:20 Pulse Ox 98 06/15/24 16:20 O2 Del Method Room Air 06/15/24 16:20 Course Vital Signs Vital signs: Vital Signs Temperature 99.3 F 06/15/24 14:58 Pulse Rate 116 H 06/15/24 14:58 Respiratory Rate 20 06/15/24 14:58 Blood Pressure 166/102 H 06/15/24 14:58 Pulse Oximetry 96 06/15/24 14:58 Oxygen Delivery Method Room Air 06/15/24 14:58 Temperature 99.3 F 06/15/24 14:58 Pulse Rate 84 06/15/24 16:20 Respiratory Rate 18 06/15/24 16:20 Blood Pressure 164/87 H 06/15/24 16:20 Pulse Oximetry 98 06/15/24 16:20 Oxygen Delivery Method Room Air 06/15/24 16:20 MDM - Abdominal Pain MDM Narrative Medical decision making narrative: Patient was treated with IV fluids, Dilaudid, Zofran with significant improvement and she is smiling, resting comfortably with stable vital signs on reevaluation. Labs show minimal leukocytosis and nitrate positive urinary tract infection. CT shows the patient has inflammation of the right ureter with no evidence of pyelonephritis, kidney stone. She is given a prescription of Cipro, Zofran, Toradol for home. Follow-up with PCP and return to the emergency department if symptoms change or worsen. SUPERVISED APC VISIT, PHYSICIAN ATTESTATION: Based on the medical record the care appears appropriate. ? Medical Records Attestation: I reviewed the patient's medical records. Lab Data Attestation: I reviewed the patient's lab results. Labs: Lab Results 06/15/24 06/15/24 Range/Units 15:07 15:13 WBC 12.7 H (4.0-11.0) 10^3/uL RBC 5.09 (4.20-5.40) 10^6/uL Hgb 13.6 (12.0-16.0) g/dL Hct 42.5 (36.0-48.0) % MCV 83.5 (81.0-99.0) fL MCH 26.7 (26.7-34.0) pg MCHC 32.0 (29.9-35.2) g/dL RDW 16.4 H (11.0-15.0) % Plt Count 308 (150-450) 10^3/uL MPV 10.0 (9.5-13.5) fL Neut % (Auto) 70.1 (43.0-75.0) % Lymph % (Auto) 23.0 (20.5-60.0) % [place] % (Auto) 4.9 (1.7-12.0) % Eos % (Auto) 1.1 (0.9-7.0) % Baso % (Auto) 0.7 (0.2-2.0) % Neut # (Auto) 8.9 H (1.4-6.5) 10^3/uL Lymph # (Auto) 2.9 (1.2-3.8) 10^3/uL [place] # (Auto) 0.6 (0.3-0.8) 10^3/uL Eos # (Auto) 0.1 (0.0-0.7) 10^3/uL Baso # (Auto) 0.1 (0.0-0.1) 10^3/uL Abs Immat Gran (auto) 0.03 (0.00-0.03) 10^3/uL Imm/Tot Granulo (auto) 0.2 (0.0-0.5) % Sodium 139 (136-145) mmol/L Potassium 3.9 (3.5-5.1) mmol/L Chloride 103 (98-107) mmol/L Carbon Dioxide 26.4 (21.0-32.0) mmol/L Anion Gap 13.5 BUN 9.0 (7.0-18.0) mg/dL Creatinine 0.83 (0.55-1.02) mg/dL Est GFR ( Amer) >60 (>=60 mL/min/1.73m^2) Est GFR (Non-Af Amer) >60 (>=60 mL/min/1.73m^2) BUN/Creatinine Ratio 10.8 Glucose 102 (74-106) mg/dL Lactate 1.9 (0.4-2.0) mmol/L Calcium 9.5 (8.5-10.1) mg/dL Total Bilirubin 0.4 (0.2-1.0) mg/dL AST 29 (15-37) U/L ALT 46 (14-59) U/L Alkaline Phosphatase 76 (46-116) U/L Total Protein 7.7 (6.4-8.2) g/dL Albumin 3.6 (3.4-5.0) g/dL Globulin 4.1 g/dL Albumin/Globulin Ratio 0.9 Lipase 32.0 (16.0-77.0) U/L Urine Color Lt. yellow (YELLOW) Urine Clarity Clear (CLEAR) Urine pH 6.0 (5.0-9.0) Ur Specific [place] 1.025 (1.005-1.025) Urine Protein >=300 A (NEG/TRACE) mg/dL Urine Glucose (UA) Negative (NEGATIVE) mg/dL Urine Ketones Negative (NEGATIVE) mg/dL Urine Occult Blood Moderate A (NEGATIVE) Urine Nitrite Positive A (NEGATIVE) Urine Bilirubin Negative (NEGATIVE) Urine Urobilinogen 0.2 (0.2-1.0) EU/dL Ur Leukocyte Esterase Trace A (NEGATIVE) Urine RBC 10-20 A (0-2) #/HPF Urine WBC 20-50 A (NONE SEEN) #/HPF Ur Squamous Epith Cells Few A (NONE/RARE) #/LPF Urine Crystals None seen (None Seen) #/HPF Urine Bacteria Small A (NONE SEEN) #/HPF Urine Casts None seen (NONE SEEN) #/LPF Urine Mucus Trace A (NONE SEEN) Ur Culture Indicated? Yes Urine HCG, Qual Negative (NEGATIVE) Imaging Data CT scan - abdomen: Attestation: I have reviewed the pertinent imaging results. Radiologist's impression: ITS Impressions Abdomen/Pelvis CT 06/15/24 15:17 IMPRESSION: 1. Infectious or inflammatory appearance of the right ureter without appreciable stones or mass. Possible ascending urinary tract infection. No findings within the right kidney to suggest pyelonephritis. 2. Unremarkable left kidney and ureter. Electronically authenticated by: SUGEY MACDONALD Date: 06/15/2024 16:03 Discharge Plan Discharge Chief Complaint: Abdominal Pain Clinical Impression: UTI (urinary tract infection), Abdominal pain Patient Disposition: Home, Self-Care Time of Disposition Decision: 16:26 Condition: Good Prescriptions / Home Meds: New ciprofloxacin HCl 500 mg tablet 500 mg PO Q12H Qty: 14 0RF ketorolac 10 mg tablet 10 mg PO TID PRN (Reason: pain) Qty: 10 0RF ondansetron 4 mg tablet,disintegrating 4 mg PO Q6H PRN (Reason: nausea and vomiting) Qty: 12 0RF No Action valacyclovir 1 gram tablet 1,000 mg PO BID inositol 500 mg tablet 500 mg PO DAILY lamotrigine [Lamictal] 25 mg tablet 25 mg PO Q12H coenzyme Q10 [Co Q-10] 100 mg capsule 200 mg PO DAILY gabapentin 300 mg capsule 300 mg PO Q12H PRN (Reason: pain) albuterol sulfate [ProAir HFA] 90 mcg/actuation HFA aerosol inhaler 2 inh inhalation Q6H PRN (Reason: shortness of breath or wheezing) metformin 500 mg tablet 500 mg PO BID baclofen 10 mg tablet 10 mg PO TID meloxicam 15 mg tablet 15 mg PO DAILY lisinopril 10 mg tablet metformin 500 mg tablet extended release 24 hr PO duloxetine 60 mg capsule,delayed release(DR/EC) PO clindamycin HCl 300 mg capsule 300 mg PO Q6H 10 Days Qty: 40 0RF ibuprofen 800 mg tablet 800 mg PO Q8H PRN (Reason: pain) Qty: 20 0RF Print Language: Polish Instructions: Urinary Tract Infection in Women (ED), Acute Abdominal Pain (ED) Referrals: CHRIS LOPEZ [Primary Care Provider] - 1 week
[2024-06-15 15:24] LABS: Basophils Absolute Auto 0.1 10^3/uL (0.0-0.1); Basophils Percent Auto 0.7 % (0.2-2.0); Eosinophils Absolute Auto 0.1 10^3/uL (0.0-0.7); Eosinophils Percent Auto 1.1 % (0.9-7.0); Hematocrit 42.5 % (36.0-48.0); Hemoglobin 13.6 g/dL (12.0-16.0); Immature Granulocytes Abs Auto 0.03 10^3/uL (0.00-0.03); Immature Granulocytes Pct Auto 0.2 % (0.0-0.5); Lymphocytes Absolute Auto 2.9 10^3/uL (1.2-3.8); Mean Corpuscular Hemoglobin 26.7 pg (26.7-34.0); Mean Corpuscular Volume 83.5 fL (81.0-99.0); Monocytes Absolute Auto 0.6 10^3/uL (0.3-0.8); Monocytes Percent Auto 4.9 % (1.7-12.0); Neutrophils Absolute Auto 8.9 10^3/uL (1.4-6.5); Neutrophils Percent Auto 70.1 % (43.0-75.0); Platelet Count 308 10^3/uL (150-450); Red Blood Count 5.09 10^6/uL (4.20-5.40); Red Cell Distribution Width 16.4 % (11.0-15.0); White Blood Count 12.7 10^3/uL (4.0-11.0)
[2024-06-15 15:24] LABS: Bilirubin Urine NEGATIVE (NEGATIVE); Blood Urine MODERATE (NEGATIVE); Clarity Urine CLEAR (CLEAR); Color Urine LT. YELLOW (YELLOW); Glucose Urine UA NEGATIVE (NEGATIVE); Ketones Urine NEGATIVE (NEGATIVE); Leukocyte Esterase Urine TRACE (NEGATIVE); Nitrite Urine POSITIVE (NEGATIVE); Protein Urine >=300 mg/dL (NEG/TRACE); Specific Gravity Urine 1.025 (1.005-1.025); Urine Microscopic Indicated YES; Urobilinogen Urine 0.2 EU/dL (0.2-1.0)
[2024-06-15 15:26] LABS: HCG Qualitative Urine* NEGATIVE (NEGATIVE); Internal Control Within Normal Limits
[2024-06-15] MEDS: HYOSCYAMINE SULFATE 0.125 MG TAB.SUBL SL (15:28)
[2024-06-15] MEDS: 0.9 % SODIUM CHLORIDE 1,000 ML 999 ML IV (15:28)
[2024-06-15] MEDS: ONDANSETRON PF 4 MG/2 ML VIAL IV (15:28)
[2024-06-15] MEDS: HYDROMORPHONE HCL 1 MG/ML CARTRIDGE IVP (15:28)
[2024-06-15 15:34] LABS: Bacteria Urine SMALL #/HPF (NONE SEEN); Cast Seen? NONE SEEN #/LPF (NONE SEEN); Crystals Seen? None Seen #/HPF (None Seen); Mucus Urine TRACE (NONE SEEN); Squamous Epithelial Cell Urine FEW #/LPF (NONE/RARE); Urine Culture Indicated YES; WBC Urine 20-50 #/HPF (NONE SEEN)
[2024-06-15 15:36] LABS: Alanine Aminotransferase 46 U/L (14-59); Albumin Globulin Ratio 0.9; Albumin Level 3.6 g/dL (3.4-5.0); Alkaline Phosphatase 76 U/L (46-116); Anion Gap 13.5; Aspartate Amino Transferase 29 U/L (15-37); BUN Creatinine Ratio 10.8; Bilirubin Total 0.4 mg/dL (0.2-1.0); Calcium 9.5 mg/dL (8.5-10.1); Carbon Dioxide 26.4 mmol/L (21.0-32.0); Chloride 103 mmol/L (98-107); Estimated GFR (African America >60 (>=60 mL/min/1.73m^2); Estimated GFR (Non-African Ame >60 (>=60 mL/min/1.73m^2); Globulin 4.1 g/dL; Glucose 102 mg/dL (74-106); Potassium 3.9 mmol/L (3.5-5.1); Sodium 139 mmol/L (136-145); Total Protein 7.7 g/dL (6.4-8.2)
[2024-06-15 15:42] LABS: Lactate/Lactic Acid 1.9 mmol/L (0.4-2.0)
[2024-06-15 16:20] VITALS: BP 164/87; PULSE 84; O2SAT 98
== END 2024-06-15 16:32 | disposition home or self-care (01) ==
PROVIDERS: Physician Assistant; Emergency Provider Emergency Medicine Emergency Medical Services; PCP Nurse Practitioner Family
DX: R10.9 Unspecified abdominal pain (principal); N39.0 Urinary tract infection, site not specified
CPT/HCPCS: 36415; 74177; 80053; 81001; 83605; 83690; 84703; 85025; 87086; 96374; 96375; 99285; J1171; J2405; Q9967

== ENCOUNTER 2024-06-24 02:37 | Emergency (ER) | payer OTHER, SELFPAY ==
[2024-06-24 02:40] VITALS: BP 159/90; PULSE 83; TEMP 36.4; O2SAT 96; BMI 57.3
--- NOTE | 2024-06-24 02:52 | ED_ITS ---
HPI HPI - General Adult General Chief complaint: Dental/Oral Stated complaint: left face pain Time Seen by Provider: 06/24/24 02:40 Source: patient Mode of arrival: walk-in Limitations: no limitations History of Present Illness HPI narrative: Patient presenting the emergency department for evaluation of left-sided facial pain. States that she was here couple weeks ago, is having dental pain. Started on a course of antibiotics, has dentist appointment on the . Patient states that now since 10 AM today she has noted shooting pain face that goes up and spreading up from the religious to the bottom of her jaw on the left side. Patient states that it is a sharp, shooting, stabbing pain that comes and goes and has been coming and going since 10 AM. Related Data Home Medications ?Medication ?Instructions ?Recorded ?Confirmed albuterol sulfate 90 mcg/actuation 2 inh inhalation Q6H PRN shortness 01/17/23 04/14/24 aerosol inhaler (ProAir HFA) of breath or wheezing gabapentin 300 mg capsule 300 mg PO Q12H PRN pain 01/17/23 04/14/24 metformin 500 mg tablet 500 mg PO BID 01/17/23 10/30/23 valacyclovir 1 gram tablet 1,000 mg PO BID 06/25/23 04/14/24 coenzyme Q10 100 mg capsule (Co 200 mg PO DAILY 10/30/23 10/30/23 Q-10) inositol 500 mg tablet 500 mg PO DAILY 10/30/23 10/30/23 lamotrigine 25 mg tablet (Lamictal) 25 mg PO Q12H 10/30/23 04/14/24 duloxetine 60 mg capsule,delayed mg PO 04/14/24 release lisinopril 10 mg tablet mg 04/14/24 metformin 500 mg tablet,extended mg PO 04/14/24 release 24 hr baclofen 10 mg tablet 10 mg PO TID 04/21/24 04/21/24 meloxicam 15 mg tablet 15 mg PO DAILY 04/21/24 04/21/24 Previous Rx's ?Medication ?Instructions ?Recorded clindamycin HCl 300 mg capsule 300 mg PO Q6H 10 days #40 caps 06/08/24 ibuprofen 800 mg tablet 800 mg PO Q8H PRN pain #20 tabs 06/08/24 ciprofloxacin HCl 500 mg tablet 500 mg PO Q12H #14 tabs 06/15/24 ketorolac 10 mg tablet 10 mg PO TID PRN pain #10 tabs 06/15/24 ondansetron 4 mg disintegrating 4 mg PO Q6H PRN nausea and 06/15/24 tablet vomiting #12 tabs carbamazepine 100 mg 100 mg PO BID #14 caps 06/24/24 capsule,extended release [id number] naproxen sodium 550 mg tablet 550 mg PO BID #14 tabs 06/24/24 Allergies Allergy/AdvReac Type Severity Reaction Status Date / Time amoxicillin Allergy Rash Verified 06/24/24 02:46 cefaclor Allergy Rash Verified 06/24/24 02:46 erythromycin base Allergy Hives Verified 06/24/24 02:46 Opioid HPI Opioid Management Most Recent Opioid Data: Last Pain Scale 2 06/15/24 16:28 06/15/24 Ur Phencyclidine Scrn Negative (NEGATIVE) 04/12/24 02:05 0802/08 Review of Systems ROS Narrative Negative unless otherwise stated in the HPI PFSH PFS Medical History Herpes genitalia ?A60.00 - Herpesviral infection of urogenital system, unspecified (ICD-10) Back pain ?M54.9 - Dorsalgia, unspecified (ICD-10) Arthritis ?M19.90 - Unspecified osteoarthritis, unspecified site (ICD-10) Anemia ?D64.9 - Anemia, unspecified (ICD-10) Depression ?F32.A - Depression, unspecified (ICD-10) Anxiety ?F41.9 - Anxiety disorder, unspecified (ICD-10) COVID-19 ?U07.1 - COVID-19 (ICD-10) Asthma ?J45.909 - Unspecified asthma, uncomplicated (ICD-10) Seizures ?R56.9 - Unspecified convulsions (ICD-10) GERD (gastroesophageal reflux disease) ?K21.9 - Gastro-esophageal reflux disease without esophagitis (ICD-10) Sleep apnea ?G47.30 - Sleep apnea, unspecified (ICD-10) Palpitations ?R00.2 - Palpitations (ICD-10) Prediabetes ?R73.03 - Prediabetes (ICD-10) Hypertension ?I10 - Essential (primary) hypertension (ICD-10) PCOS (polycystic ovarian syndrome) ?E28.2 - Polycystic ovarian syndrome (ICD-10) Abnormal uterine bleeding (AUB) ?N93.9 - Abnormal uterine and vaginal bleeding, unspecified (ICD-10) Menorrhagia ?N92.0 - Excessive and frequent menstruation with regular cycle (ICD-10) Surgical History History of laparoscopy ?Z98.890 - Other specified postprocedural states (ICD-10) History of colposcopy ?Z98.890 - Other specified postprocedural states (ICD-10) History of wisdom tooth extraction ?K08.409 - Partial loss of teeth, unspecified cause, unspecified class (ICD- 10) History of cholecystectomy ?Z90.49 - Acquired absence of other specified parts of digestive tract (ICD- 10) Family History Other Family history of heart disease Family history of stroke Social History Within the past year, how often did you have a drink containing alcohol: monthly or less Smoking status: Never smoker Previous occupational history: [employer] Highest level of school completed/degree received: Associate degree: occupational, technical, vocational program Little interest or pleasure in doing things: not at all Feeling down, depressed, or hopeless: not at all Exam Narrative Exam Narrative: General: NAD, AAOx3, no distress HEENT: NCAT, mmm, TMs normal bilaterally. No lymphangitis/lymphedema, midline uvula, no exudates, normal tonsils without hypertrophy or exudates, no significant caries burden, patient does have pain with even slight touch or graze over her trigeminal nerve distribution Neck: Supple, no LAD, negative Kernig/Brudzinski, non meningeal, no bruit Neuro: Speech is clear and appropriate. Normal level of consciousness. Gait and coordination are normal. 5/5 strength in all extremities. Constitutional Vital Signs, click to edit/add: Last Vital Signs Temp 97.5 F L 06/24/24 02:40 Pulse 83 06/24/24 02:40 Resp 18 06/24/24 02:40 BP 159/90 H 06/24/24 02:40 Pulse Ox 96 06/24/24 02:40 O2 Del Method Room Air 06/24/24 02:40 Course Vital Signs Vital signs: Vital Signs Temperature 97.5 F L 06/24/24 02:40 Pulse Rate 83 06/24/24 02:40 Respiratory Rate 18 06/24/24 02:40 Blood Pressure 159/90 H 06/24/24 02:40 Pulse Oximetry 96 06/24/24 02:40 Oxygen Delivery Method Room Air 06/24/24 02:40 Temperature 97.5 F L 06/24/24 02:40 Pulse Rate 83 06/24/24 02:40 Respiratory Rate 18 06/24/24 02:40 Blood Pressure 159/90 H 06/24/24 02:40 Pulse Oximetry 96 06/24/24 02:40 Oxygen Delivery Method Room Air 06/24/24 02:40 Medical Decision Making MDM Narrative Medical decision making narrative: [facility] Patient with history as above presented with facial pain. History obtained from patient. Patient was nontoxic, stable. Ambulatory. Exam as above. Reviewed external records. Differential diagnosis considered. Overall presentation is consistent with potential for trigeminal neuralgia given distribution of symptoms, lack of intraoral abscess or significant caries burden broken teeth with close nerve Advanced guidance has been given. Vss, pex is benign at this time. Pt to fu with pcp 1-2 days for reeval, rter should sx worsen, persist or become worrysome in any way. All incidental laboratory studies, EKG, radiologic findings have been noted and discussed with patient. Patient was reevaluated with a benign exam at this time. Pt expressed understanding and agreement with plan of care at this time. Will fu as planned. Pt stable for discharge. Discharge Plan Discharge Chief Complaint: Dental/Oral Clinical Impression: Atypical face pain, Trigeminal neuralgia Patient Disposition: Home, Self-Care Time of Disposition Decision: 02:56 Condition: Good Prescriptions / Home Meds: New naproxen sodium 550 mg tablet 550 mg PO BID Qty: 14 0RF carbamazepine 100 mg capsule, ER multiphase 12 hr 100 mg PO BID Qty: 14 0RF No Action valacyclovir 1 gram tablet 1,000 mg PO BID inositol 500 mg tablet 500 mg PO DAILY lamotrigine [Lamictal] 25 mg tablet 25 mg PO Q12H coenzyme Q10 [Co Q-10] 100 mg capsule 200 mg PO DAILY ciprofloxacin HCl 500 mg tablet 500 mg PO Q12H Qty: 14 0RF ketorolac 10 mg tablet 10 mg PO TID PRN (Reason: pain) Qty: 10 0RF ondansetron 4 mg tablet,disintegrating 4 mg PO Q6H PRN (Reason: nausea and vomiting) Qty: 12 0RF gabapentin 300 mg capsule 300 mg PO Q12H PRN (Reason: pain) albuterol sulfate [ProAir HFA] 90 mcg/actuation HFA aerosol inhaler 2 inh inhalation Q6H PRN (Reason: shortness of breath or wheezing) metformin 500 mg tablet 500 mg PO BID baclofen 10 mg tablet 10 mg PO TID meloxicam 15 mg tablet 15 mg PO DAILY lisinopril 10 mg tablet metformin 500 mg tablet extended release 24 hr PO duloxetine 60 mg capsule,delayed release(DR/EC) PO clindamycin HCl 300 mg capsule 300 mg PO Q6H 10 Days Qty: 40 0RF ibuprofen 800 mg tablet 800 mg PO Q8H PRN (Reason: pain) Qty: 20 0RF Print Language: [place]i Instructions: Trigeminal Neuralgia (ED), Atypical Facial Pain (ED) Additional Instructions: Follow-up with your PCP in the next 1 to 2 days. Return to the emergency department should symptoms worsen or become worrisome in any way. Referrals: CHRIS LOPEZ [Primary Care Provider] - 1 week
--- OUTSIDE RECORDS SUMMARY | 2024-06-24 02:53 | XMS_ITS | CCD ---
Author Organization [facility] Care Team Providers Care Paleontology Teacher Name Role Phone BRENT KINNEY Referring Unavailable BRENT KINNEY Attending Unavailable BRENT KINNEY Admitting Unavailable Michelle Ernandez Unavailable VIOLA, DR NUR Consulting Unavailable HOUSE, DR [facility] Admitting Unavailable HOUSE, DR NUR Primary Care [...] Unavailable Celio Mullins Unavailable Manisha Marc Unavailable [phone] ROSITA Marc Primary Care Provider ROSITA Marc Attending Provider DO Celio Mullins Attending Provider ROSITA Marc Primary Care Provider MD Clinton Frazier Attending Provider ROSITA Marc Attending Provider ROSITA Marc Primary Care Provider DO Celio Mullins Attending Provider MD Edward Gilmore Attending Provider MD Clinton Frazier Attending Provider ROSITA Marc Primary Care Provider MD Edward Glimore Attending Provider DO Akil Cox Attending Provider ROSITA Marc Primary Care Provider MD Edward Gilmore Attending Provider ROSITA Marc Attending Provider DO Akil Cox Attending Provider [phone] ROSITA Marc Primary Care Provider MD Edward [...] Provider MD Edward Gilmore Attending Provider [phone] ROSITA Marc [facility] Care Provider MD Edward Gilmore Attending Provider ROSITA Hassan Attending Provider [phone] Ivon Mullinsten M Admitting Unavailable MullinsIvonCelio M Attending Unavailable Rohrbacher, Manisha Primary Care Unavailable Mullins, Celio M Admitting Unavailable Mullins, Celio M Attending Unavailable Rohrbacher, [facility] Primary [facility] Unavailable KennyKojoer Veronica Admitting Unavailab le KennyAkli M Attending Unavailab le Rohrbacher, [facility] Primary Care Unavailable Rohrbacher, Manisha Admitting Unavailable Rohrbacher, Manisha Attending Unavailable Rohrbacher, [facility] Care Unavailable Deirdre, Edward Admitting Unavailab le Deirdre, Edward Attending Unavailab le Rohrbacher, [facility] Care Unavailable Mullins, Celio M Admitting Unavailable Mullins, Celio M Attending Unavailable Rohrbacher, [facility] Care Unavailable FreddieWili mcmanusald L Admitting Unavailable Clinton Frazier L Attending Unavailable Rohrbacher, [facility] Care Unavailable Casandra Hassan Admitting Unavailable Casandra Hassan Attending Unavailable ROSITA Marcnifer [facility] Care Provider MD Edward Gilmore Attending Provider ROSITA Hassan Attending Provider Allergies Allergy Classification Reported Allergen(s) Allergy Type Date of Onset Reaction(s) Facility (20 sources) Amoxicillin; Translations: [AMOXICILLIN] Drug Allergy 07-08-20 16 rash [facility] Repository (13 sources) Cefaclor; Translations: [CEFACLOR] Drug Allergy 04-14-20 15 Unknown Reaction, Hives [facility] Repository (19 sources) Erythromycin; Translations: [ERYTHROMYCIN] Drug Allergy 04-14-20 15 [facility] Repository (19 sources) Cefaclor; Translations: [Ceclor] Drug Allergy 04-17-20 15 [facility] Repository (12 sources) Erythromycin Drug Allergy 04-17-20 15 Unknown Reaction, Hives [facility] Repository (12 sources) Cephalosporins (Antibiotic); Translations: [Cephalosporins] Allergy to substance 12-10-19 22 Unknown Reaction, Rash [facility] (3 sources) Lactulose; Translations: [lactulose] Drug Allergy 02-12-20 20 Unknown Reaction [facility] (1 source) Erythromycin Drug Allergy 06-15-20 24 [facility] Repository Medications Current Medications Medication Drug Class(es) Dates Sig (Normalized) Sig (Original) [id number] 200 actuat albuterol 0.09 mg/actuat metered dose [...] needed Inhalation every 4 hrs Active Baclofen (3 sources) gamma-Aminobutyric Acid-ergic Agonist Start: 06-15-2024 Baclofen Active MG PO June 14, 2024 11:00pm Start: 06-15-2024 Baclofen Activ e MG PO June 15, 2024 12:00am cariprazine 1.5 mg oral capsule (2 sources) Atypical Antipsychotic take 1 capsule by mouth every twenty-four hours Vraylar 1.5 MG 1 capsule Orally Once a day Active ciprofloxacin 500 mg oral tablet (1 source) Quinolone Antimicrobial Start: Ciprofloxacin Hcl Active 500 MG PO June 21, 2024 12:00am clindamycin 300 mg oral capsule (3 sources) Lincosamide Antibacterial Start: Clindamycin Hcl Active MG PO June 14, 2024 11:00pm doxycycline hyclate 100 mg oral tablet (3 sources) Tetracycline-class Drug Start: take 1 tablet by mouth every twelve hours Doxycycline Hyclate 100 MG 1 tablet Orally Twice a day for 10 day(s) Jun, Active DULoxetine 60 mg delayed release oral capsule (20 sources) Serotonin and Norepinephrine Reuptake Inhibitor Start: End: take 120 mg by mouth once daily Duloxetine Active 120 MG PO Daily 180 April 05, 2024 12:28pm Start: 10-01-2023 End: 10-01-2023 take 2 capsules [...] Daily at bedtime February 16, 2020 11:00pm November 26, 2023 7:33am take 2 capsules by m outh every twenty-four hours Cymbalta 60 MG 2 capsule Orally Once a day for 90 days Active Cymbalta Active ferrous sulfate 325 mg oral tablet (9 sources) Start: 11-04-2023 End: 04-21-2024 take 325 mg by mouth once daily Ferrous Sulfate Active 325 MG PO Daily 90 April 21, 2024 11:00pm gabapentin 300 mg oral capsule (20 sources) [...] PRN Active ibuprofen 800 mg oral tablet (3 sources) Nonsteroidal Anti-inflammatory Drug Start: 06-15-2024 Ibuprofen Active MG PO June 14, 2024 11:00pm lamoTRIgine 25 mg oral tablet (9 sources) Mood Stabilizer, Anti-epileptic Agent Start: 10-01-2023 take 25 mg by mouth twice daily Lamotrigine Active 25 MG PO Twice daily October 01, 2023 12:00am lisinopril 10 mg oral tablet (20 sources) Angiotensin Converting Enzyme Inhibitor Start: 11-26-2023 End: 04-05-2024 take 10 mg by mouth once daily Lisinopril Active 10 MG PO Daily 90 90 April 05, 2024 12:28pm Start: 10-01-2023 End: 11-26-2023 take 10 mg by mouth once daily Lisinopril Discontinued 10 MG PO Daily October 01, 2023 9:14am November 26, 2023 7:34am Start: 10-01-2023 End: 11-03-2023 take 10 mg by mouth once daily Lisinopril Discontinued 10 MG PO Daily October 01, 2023 12:00am November 03, 2023 1:25pm Start: 12-07-2021 End: 10-01-2023 take 20 mg [...] Ac tive meloxicam 15 mg oral tablet (3 sources) Nonsteroidal Anti-inflammatory Drug Start: 06-15-2024 Meloxicam Active MG PO June 14, 2024 11:00pm 24 hr metFORMIN hydrochloride 500 mg extended release oral tablet (20 sources) Biguanide Start: 11-26-2023 take 1000 mg by mouth once daily Metformin Active 1000 MG PO Daily November 25, 2023 11:00pm Start: 02-12-2020 End: 11-26-2023 take 1 tablet by mouth twice daily Metformin Discontinued 500 MG PO Twice daily October 01, 2023 12:00am November 26, 2023 7:34am FreeTextSi tablet with a meal Orally twice [...] December 06, 2021 11:00pm Multivitamin Act rafal ondansetron 4 mg oral tablet (4 sources) Serotonin-3 Receptor Antagonist Start: 07-07-2023 take 1 tablet by mouth three times daily as needed Zofran 4 MG 1 tablet Orally tid prn ODT Jun, Active Completed/Discontinued Medications Medication Drug Class(es) Dates Sig (Normalized) Sig (Original) ARIPiprazole 5 mg oral tablet (13 sources) Atypical Antipsychotic Start: 03-05-2020 End: 12-07-2021 take 5 mg by mouth once daily Aripiprazole Discontinued 5 MG PO Daily March 04, 2020 11:00pm December 07, 2021 9:45am Savanna Corrales Active 24 hr buPROPion hydrochloride 150 mg extended release oral tablet (11 sources) Aminoketone Start: 02-12-2020 End: 02-17-2020 take 150 mg by mouth once daily Bupropion Hcl Discontinued 150 MG PO Daily February 11, 2020 11:00pm February 17, 2020 10:57am citalopram 40 mg oral tablet (20 sources) Serotonin Reuptake Inhibitor Start: 02-12-2020 End: 02-17-2020 take 40 mg by mouth once daily Citalopram Discontinued 40 MG PO Daily February 11, 2020 11:00pm February 17, 2020 10:57am Start: 02-12-2020 End: 02-12-2020 Citalopram Discontinued MG T ABLET February 11, 2020 11:00pm February 12, 2020 7:18pm fluticasone propionate 0.05 mg/actuat metered dose nasal spray (12 sources) Corticosteroid Start: 10-01-2023 End: 11-26-2023 Fluticasone Propionate Discontinued 2 SPRAY INTRANASAL Daily October 01, 2023 12:00am November 26, 2023 7:33am Start: 06-29-2023 take 2 spray(s) nasa l [...] succinate 50 mg extended release oral tablet (11 sources) beta-Adrenergic Ann Start: 02-12-2020 End: 12-07-2021 take 50 mg by mouth once daily Metoprolol Succinate Discontinued 50 MG PO Daily February 11, 2020 11:00pm December 07, 2021 9:46am niacin 500 mg oral tablet (6 sources) Nicotinic Acid Start: 11-26-2023 End: 04-21-2024 Niacin (Inositol Niacinate) Discontinued TAB PO November 25, 2023 11:00pm April 21, 2024 1:37pm nitrofurantoin, macrocrystals 25 mg / nitrofurantoin, monohydrate 75 mg oral capsule (4 sources) Nitrofuran Antibacterial Start: 06-15-2024 End: 06-21-2024 take 1 capsule by mouth every twelve hours at mealtime Nitrofurantoin Monohyd/M-Cryst (Macrobid) 100 mg capsule Discontinued 100 MG PO Every 12 hours 05 22June 14, 2024 11:00pm June 21, 2024 11:32am must administer with a meal/food Start: 05-31-2021 take 1 capsule by mo [facility] every twelve hours Macrobid 100 MG 1 cap(s) Orally bid for 5 day(s) May, Active phenazopyridine hydrochloride 200 mg oral tablet (4 sources) Start: 06-15-2024 End: 06-21-2024 take 1 tablet by mouth three times daily Phenazopyridine (Pyridium) 200 mg tablet Discontinued 200 MG PO Three times daily 04 20June 14, 2024 11:00pm June 21, 2024 11:24am Start: 05-31-2021 take 1 tablet by miranda every eight hours Pyridium 200 MG 1 tablet after meals Orally Three times a day for 2 day(s) May, Active predniSONE 20 mg oral tablet (5 sources) Start: 06-29-2023 take 1 tablet by mouth every twelve hours predniSONE 20 MG 1 tablet Orally bid for 5 day(s) Jun, Not-Taking Start: 06-17-2021 take 1 tablet by miranda every twelve hours predniSONE 20 MG 1 tablet Orally bid for 5 day(s) May, Active ubidecarenone 200 mg oral capsule (6 sources) Start: 11-26-2023 End: 04-21-2024 Coenzyme Q10 Discontinued 200 MG PO Daily November 25, 2023 11:00pm April 21, 2024 1:36pm valACYclovir 1000 mg oral tablet (20 sources) Herpesvirus Nucleoside Analog DNA Polymerase Inhibitor, Herpes Simplex Virus Nucleoside Analog DNA Polymerase Inhibitor, Herpes Zoster Virus Nucleoside Analog DNA Polymerase Inhibitor Start: 02-12-2020 End: 01-08-2024 Valacyclovir (Valtrex) 1 gram tablet Discontinued 1000 MG PO Daily October 01, 2023 9:15am January 08, 2024 10:49am Start: 02-12-2020 End: 02-12-2020 take 1 mg [...] asthma with (acute) exacerbation] Chronic Cardiac dysrhythmias (10 sources) Palpitations; Translations: [Palpitations] 11-03-2023 Episodic Chronic obstructive pulmonary disease and bronchiectasis (5 sources) Acute exacerbation of chronic bronchitis; Translations: [Bronchitis, chronic with acute exacerbation] Chronic Chronic obstructive pulmonary disease and bronchiectasis (1 source) Bronchitis, not specified as acute or chronic Episodic Conditions associated with dizziness or vertigo (10 sources) Lightheadedness; Translations: [Dizziness and giddiness] 11-03-2023 Episodic Deficiency and other anemia (3 sources) Iron deficiency anemia; Translations: [Iron deficiency anemia, unspecified] 06-08-2024 Episodic Diabetes mellitus without complication (15 sources) Impaired fasting glucose; Translations: [Prediabetes] Onset: 10-01-2023 Episodic Epilepsy; convulsions (11 sources) Seizure disorder; Translations: [Epilepsy, unspecified, not intractable, without status epilepticus] Onset: 10-08-2023 Chronic Essential hypertension (20 sources) Essential hypertension; Translations: [Essential (primary) hypertension] Onset: 07-01-2023 Chronic Genitourinary symptoms and ill-defined conditions (3 sources) Dysuria; Translations: [Hematuria, unspecified] Onset: 05-31-2021 Resolved: 05-31-2021 Episodic Headache; including migraine (20 sources) Refractory migraine without aura; Translations: [Migraine without aura, intractable, without status migrainosus] Chronic Immunizations and screening for infectious disease (7 sources) Contact with and (suspected) exposure to other viral communicable diseases; Translations: [Encounter for screening for human papillomavirus (HPV)] Onset: 06-17-2021 Resolved: 07-06-2021 Episodic Malaise and fatigue (6 sources) Fatigue; Translations: [Other fatigue] 04-22-2024 Episodic Menstrual disorders (19 sources) Amenorrhea; Translations: [Amenorrhea, unspecified] Onset: 03-07-2022 Chronic Mood disorders (20 sources) Recurrent major depression in partial remission; Translations: [Major depressive disorder, recurrent, in partial remission] Chronic Nausea and vomiting (1 source) Nausea with vomiting, unspecified Episodic Nutritional deficiencies (6 sources) Iron deficiency; Translations: [Iron deficiency] 11-04-2023 [...] disorders (1 source) Diarrhea, unspecified Episodic Other liver diseases (2 sources) Fatty (change of) liver, not elsewhere classified; Translations: [Nonalcoholic fatty liver disease] 06-21-2024 Chronic Other lower respiratory disease (3 sources) Snoring; Translations: [Snoring] 04-22-2024 Episodic Other lower respiratory disease (3 sources) Apnea; Translations: [Apnea, not elsewhere classified] 04-22-2024 Episodic Other lower respiratory disease (3 sources) Apnea, not elsewhere classified; Translations: [Apnea] 04-21-2024 Episodic Other lower respiratory disease (3 sources) Snoring; Translations: [Other respiratory abnormalities] 04-21-2024 Episodic Other nervous system disorders (13 sources) Chronic pain; Translations: [Other chronic pain] Chronic Other nervous system disorders (1 source) Other chronic pain Chronic Other nervous system disorders (4 sources) Aphasia; Translations: [Aphasia] 04-21-2024 Chronic Other nervous system disorders (4 sources) Neuropathy; Translations: [Polyneuropathy, unspecified] 04-12-2024 Chronic Other nervous system disorders (4 sources) Aphasia; Translations: [Aphasia] 04-21-2024 Chronic Other nervous system disorders (7 sources) Paresthesia of skin; Translations: [Paresthesia of both hands] Episodic Other nutritional; endocrine; and metabolic disorders (13 sources) Body mass index 30+ - obesity; Translations: [Body mass index (BMI) 33.0-33.9, adult] Chronic Other nutritional; endocrine; and metabolic disorders (15 sources) Morbid obesity; Translations: [Morbid (severe) obesity due to excess calories] 04-22-2024 Chronic Other nutritional; endocrine; and metabolic disorders (20 sources) Insulin resistance; Translations: [Metabolic syndrome] 10-01-2023 Chronic Other nutritional; endocrine; and metabolic disorders (12 sources) Morbid (severe) obesity due to excess [...] 06-17-2021 Resolved: 06-17-2021 Episodic Residual codes; unclassified (4 sources) Amnesia; Translations: [Other amnesia] 04-21-2024 Episodic Residual codes; unclassified (8 sources) Personal history of other specified conditions; Translations: [History of seizure] 04-21-2024 Episodic Residual codes; unclassified (4 sources) Other amnesia; Translations: [Memory loss] 04-21-2024 Episodic Spondylosis; intervertebral disc disorders; other back problems (20 sources) Sacroiliitis, not elsewhere classified; Translations: [Other [...] specified aftercare] Onset: 07-19-2023 Urinary tract infections (11 sources) Urinary tract infection, site not specified; Translations: [Acute urinary tract infection] Onset: 05-31-2021 Resolved: 05-31-2021 Episodic Viral infection (10 sources) Viral infection, unspecified; Translations: [Herpes simplex] Episodic Past or Other Problems Problem Classification Problem Date Documented Da te Episodic/Chronic Other lower respiratory disease (1 source) Personal [...] Range Facility Basophils Auto (Bld) [#/Vol] on 06-15-2024 Basophils (Bld) [#/Vol] 0.1 10 3/uL 0.0-0.1 [facility] Basophils/100 WBC Auto (Bld) on 06-15-2024 Basophils/100 WBC (Bld) 0.7 % 0.2-2.0 [facility] Chlamydia trachomatis DNA [P resence] in Specimen by SURI with probe detectionOrdered By: Casandra Hassan on 06-15-2024 C. trachomatis DNA SURI+probe Ql (Unsp spec) Negative Negative [facility] Chlamydia/GC/Trich NAAon Chlamydia Trachomotis, SURI Negative Normal Negative [facility] Comment on above: Performed By: #### C UU #### [address] #### [id number] #### [facility] , Neisseria Gonorrhoeae, SURI Negative Normal Negative [facility] Comment on above: Performed By: #### C UU #### [address] #### [id number] #### [facility] , Trichomonas SURI Negative Normal Negative [facility] Comment on above: Result Comment: Perf ormed at: =G - [facility] [address] [id number] Umbrella Mender: Monse Cardona MD, Phone: [phone] PERFORMED BY: [place] [address] PATHOLOGIST METER INSTALLER NESHA MAIER M.D. Performed By: #### C UU #### [facility] [address] [place] [address] #### GCCHLAMTRI #### [facility] , Eosinophils/100 WBC Auto (Bl d)on 06-15-2024 Eosinophils/100 WBC (Bld) 1.1 % 0.9-7.0 [facility] Erythrocyte distribution wid th Auto (RBC) [Ratio]on 06-15-2024 Erythrocyte distribution width (RBC) [Ratio] 16.4 % High 11.0-15.0 [facility] Estimated glomerular filtrat ion rate (GFR) non- Americanon 06-15-2024 GFR/1.73 sq M.predicted among non-blacks MDRD (S/P/Bld) [Vol rate/Area] mL/min/{1.73_m2} >=60 mL/min/1.73 m 2 [facility] Globulin Calc (S) [Mass/Vol] on 06-15-2024 Globulin (S) [Mass/Vol] 4.1 g/dL F [facility] HCG ( test) IA.rapi d Ql (U)on 06-15-2024 HCG ( test) Ql (U) Negative NEGATIVE [facility] Hematocrit Auto (Bld) [Volum e fraction]on 06-15-2024 Hematocrit (Bld) [Volume fraction] 42.5 % 36.0-48.0 [facility] Hemoglobin [Mass/volume] in Bloodon 06-15-2024 Hemoglobin (Bld) [Mass/Vol] 13.6 g/dL 12.0-16.0 [facility] Laboratory - Chemistry and C hemistry - challengeon 06-15-2024 Bilirubin Ql (U) Negative NEGATIVE [facility] Glucose (U) [Mass/Vol] Negative NEGATIVE [facility] Ketones Ql (U) Negative NEGATIVE [facility] pH (U) 6.0 [pH] 5.0-9.0 [facility] Specific gravity (U) [Rel density] 1.025 1.005-1.025 [facility] Urobilinogen Qn (U) 0.2 {Tamiko'U}/dL 0.2-1.0 [facility] Albumin [Mass/Vol] 3.6 g/dL 3.4-5.[address] [facility] ALP [Catalytic activity/Vol] 76 U/L 46-116 [facility] ALT [Catalytic activity/Vol] 46 U/L 14-59 [facility] AST [Catalytic activity/Vol] 29 U/L 15-37 [facility] Bilirubin [Mass/Vol] 0.4 mg/dL 0.2-1.0 [facility] Calcium [Mass/Vol] 9.5 mg/dL 8.5-10.[address] [facility] Chloride [Moles/Vol] 103 mmol/L 98-107 [facility] CO2 [Moles/Vol] 26.4 mmol/L 21.0-32.0 [facility] Creatinine [Mass/Vol] 0.83 mg/dL 0.55-1.02 [facility] GFR/1.73 sq M.predicted MDRD (S/P/Bld) [Vol rate/Area] mL/min/{1.73_m2} >=60 mL/min/1.73 m 2 [facility] Glucose [Mass/Vol] 102 mg/dL 74-[address] [facility] Lactate [Moles/Vol] 1.9 mmol/L 0.4-2.0 [facility] Lipase [Catalytic activity/Vol] 32.0 U/L 16.0-77.0 [facility] Potassium [Moles/Vol] 3.9 mmol/L 3.5-5.1 [facility] Protein [Mass/Vol] 7.7 g/dL 6.4-8.[address] [facility] Sodium [Moles/Vol] 139 mmol/L 136-[address] [facility] Urea nitrogen [Mass/Vol] 9.0 mg/dL 7.0-18.0 [facility] Urea nitrogen/Creatinine [Mass ratio] 10.8 mg/mg [facility] Laboratory - Hematology and Cell countson 06-15-2024 Immature granulocytes/100 WBC (Bld) 0.2 % 0.0-0.5 [facility] Laboratory - Microbiology an d Antimicrobial susceptibilityOrdered By: Casandra Hassan on 06-15-2024 Bacteria identified Cx Nom (U) Escherichia coli (ESBL) Abnormal [facility] Laboratory - Specimen inform ationon 06-15-2024 Appearance (U) CLEAR CLEAR [facility] Color (U) LT. YELLOW YELLOW [facility] Laboratory - Urinalysison Leukocyte esterase Test strip Ql (U) TRACE Abnormal NEGATIVE [facility] Mucus Ql (Urine sed) TRACE Abnormal NONE SEEN [facility] Nitrite Ql (U) Positive Abnormal NEGATIVE [facility] Protein Ql (U) >=300 mg/dL Abnormal NEG/TRACE [facility] Leukocytes [#/volume] correc carmelita for nucleated erythrocytes in Blood by Automated counon 06-15-2024 WBC corrected for nucl RBC Auto (Bld) [#/Vol] 12.7 10 3/uL High 4.0-11.0 [facility] Lymphocytes Auto (Bld) [#/Vo l]on 06-15-2024 Lymphocytes (Bld) [#/Vol] 2.9 10 3/uL 1.2-3.8 [facility] Lymphocytes/100 WBC Auto (Bl d)on 06-15-2024 Lymphocytes/100 WBC (Bld) 23.0 % 20.5-60.0 [facility] MCH Auto (RBC) [Entitic mass ]on 06-15-2024 MCH (RBC) [Entitic mass] 26.7 pg 26.7-34.0 [facility] MCHC Auto (RBC) [Mass/Vol]on 06-15-2024 MCHC (RBC) [Mass/Vol] 32.0 g/dL 29.9-35.2 [facility] MCV Auto (RBC) [Entitic vol] on 06-15-2024 MCV (RBC) [Entitic vol] 83.5 fL 81.0-99.0 [facility] Monocytes Auto (Bld) [#/Vol] on 06-15-2024 Monocytes (Bld) [#/Vol] 0.6 10 3/uL 0.3-0.8 [facility] Monocytes/100 WBC Auto (Bld) on 06-15-2024 Monocytes/100 WBC (Bld) 4.9 % 1.7-12.0 [facility] Neisseria gonorrhoeae DNA [P resence] in Specimen by SURI with probe detectionOrdered By: Casandra Hassan on 06-15-2024 N. gonorrhoeae DNA SURI+probe Ql (Unsp spec) Negative Negative [facility] Neutrophils Auto (Bld) [#/Vo l]on 06-15-2024 Neutrophils (Bld) [#/Vol] 8.9 10 3/uL High 1.4-6.5 [facility] Neutrophils/100 WBC Auto (Bl d)on 06-15-2024 Neutrophils/100 WBC (Bld) 70.1 % 43.0-75.0 [facility] No Panel Informationon 06-15 Miscellaneous Test Comment See comment [facility] Comment on above: Specimen Source: UCC - Urine,Clean Catch - Urine CC - 200.100 Urine Bacteria SMALL #/HPF Abnormal NONE SEEN [facility] Urine Culture Reflexed YES [facility] Urine Culture Result 1 \R\ Urine Culture , Routine\R\ Organism: Gram negative jus : [facility] Urine Microscopic Review YES [facility] Urine Occult Blood MODERATE Abnormal NEGATIVE [facility] Urine Other Casts NONE SEEN #/LPF NONE SEEN [facility] Urine Other Crystals None Seen #/HPF None Seen [facility] Urine RBC 10-20 #/HPF Abnormal 0-2 [facility] Urine Squamous Epithelial Cells FEW #/LPF Abnormal NONE/RARE [facility] Urine WBC 20-50 #/HPF Abnormal NONE SEEN [facility] Eosinophils # (Auto) 0.1 10 3/uL 0.0-0.7 [facility] Immature Granulocyte # (Auto) 0.03 10 3/uL 0.00-0.03 [facility] Platelet mean volume Auto (B ld) [Entitic vol]on 06-15-2024 Platelet mean volume (Bld) [Entitic vol] 10.0 fL 9.5-13.5 [facility] Platelets Auto (Bld) [#/Vol] on 06-15-2024 Platelets (Bld) [#/Vol] 308 10 3/uL 150-450 [facility] RBC Auto (Bld) [#/Vol]on RBC (Bld) [#/Vol] 5.09 10 6/uL 4.20-5.40 [facility] Serum or plasma albumin/glob ulin mass ratioon 06-15-2024 Albumin/Globulin [Mass ratio] 0.9 {ratio} [facility] Serum or plasma anion gap de terminationon 06-15-2024 Anion gap [Moles/Vol] 13.5 mmol/L [facility] Trichomonas vaginalis DNA [P resence] in Specimen by SURI with probe detectionOrdered By: Casandra Hassan on 06-15-2024 T. vaginalis DNA SURI+probe Ql (Unsp spec) Negative Negative [facility] Comment on above: Performed at: =[facility] [address] [place] [id number] Director: Monse Cardona MD, Phone: [phone] Urine Cultureon 06-15-2024 Bacteria identified Cx Nom (U) ORGANISM: Escherichia coli (ESBL) (O:ESCCOLESBL) [place] Count >100,000 Aerobic RENATE Charge (NMIC56) ----- SUSCEPTIBILITY ---- ORGANISM: O:ESCCOLESBL ANTIBIOTIC INTERPRETATION RENATE Amikacin S <16 Amoxacillin/K Clavulanate S <8 Ampicillin R* >16 Ampicillin/Sulbactam S 88/4 Aztreonam ESBL 16 Cefazolin R* >16 Cefepime R* 16 Ceftazidime ESBL 4 Ceftazidime/Avibacta m S <4 Ceftolozane/Tazobact am S <2 Ceftriaxone ESBL >32 Cefuroxime R* >16 Ciprofloxacin S <0.25 Ertapenem S <0.5 Gentamicin S <2 Levofloxacin S <0.5 Meropenem S <1 Meropenem/Vaborbacta m S <2 Nitrofurantoin S <32 Piperacillin/Tazobac vidal S <8 Tetracycline R >8 Tigecycline S <2 Tobramycin S <2 Trimethoprim/Sulfame thoxazole R >2 S = SUSCEPTIBLE I = INTERMEDIATE R = RESISTANT BLANK = DATA NOT AVAILABLE, OR DRUG NOT ADVISABLE OR TESTED R* = RESISTANCE DUE TO EXTENDED SPECTRUM BETA-LACTAMASES ESBL = EXTENDED SPECTRUM BETA-LACTAMASE TFG = THYMIDINE-DEPENDENT STRAIN ALEX = BETA-LACTAMASE POSITIVE IB = INDUCIBLE BETA-LACTAMASE. APPEARS IN PLACE OF 'S' WITH SPECIES KNOWN TO POSSESS INDUCIBLE BETA-LACTAMASES. POTENTIALLY THEY MAY BECOME RESISTANT TO ALL B-LACTAM DRUGS. PERFORMED BY: [facility] [address] [place] [address] PATHOLOGIST METER INSTALLER NESHA MAIER M.D. [place] [facility] Comment on above: Performed By: #### C UU #### [facility] [address] #### GCCHLAMTRI #### [facility] , Iron binding capacity [Mass/ volume] in Serum or Plasmaon 06-07-2024 Iron binding capacity [Mass/Vol] 411.0 ug/dL 250.0-450.0 [facility] Iron saturation [Mass Fracti on] in Serum or Plasmaon 06-07-2024 Iron saturation [Mass fraction] 13.4 % [facility] Laboratory - Chemistry and C hemistry - challengeon 06-07-2024 Iron [Mass/Vol] 55.0 ug/dL 50.0-170.0 [facility] Iron binding capacity [Mass/ volume] in Serum or Plasmaon 04-21-2024 Iron binding capacity [Mass/Vol] 495.0 ug/dL High 250.0-450.0 [facility] Iron saturation [Mass Fracti on] in Serum or Plasmaon 04-21-2024 Iron saturation [Mass fraction] 15.4 % [facility] Laboratory - Chemistry and C hemistry - challengeon 04-21-2024 Cobalamin (Vitamin B12) [Mass/Vol] 815 pg/mL [id number] [facility] Comment on above: Performed at: [place] [id number] Director: Cassius Zhong PhD, Phone: [phone] Iron [Mass/Vol] 76.0 ug/dL 50.0-170.0 [facility] TSH Qn 2.211 m[IU]/L 0.358-3.740 [facility] Basophils Auto (Bld) [#/Vol] on 04-12-2024 Basophils (Bld) [#/Vol] 0.1 10 3/uL 0.0-0.1 [facility] Basophils/100 WBC Auto (Bld) on 04-12-2024 Basophils/100 WBC (Bld) 0.6 % 0.2-2.0 [facility] Buprenorphine [Presence] in Urineon 04-12-2024 Buprenorphine Ql (U) Negative NEGATIVE [facility] Comment on above: DRUG CLASS TEST SYST EM CUT-OFF CONCENTRATIONS ARE ASFOLLOWS:AMP (Amphetamine): 500 ng/mLBAR (Barbiturates): 200 ng/mLBZO (Benzodiazepines): 150 ng/mLBUP (Buprenorphine): 10 ng/mLCOC (Cocaine): 150 ng/mLmAMP (Methamphetamine): 500 ng/mLMTD (Methadone): 200 ng/mLOPI (Opiates): 100 ng/mLOXY (Oxycodone): 100 ng/mLPCP (Phencyclidine): 25 ng/mLTHC (Cannabinoids): 50 ng/mLTCA (Trycyclic Antidepressants): 300 ng/mL Eosinophils/100 WBC Auto (Bl d)on 04-12-2024 Eosinophils/100 WBC (Bld) 1.0 % 0.9-7.0 [facility] Erythrocyte distribution wid th Auto (RBC) [Ratio]on 04-12-2024 Erythrocyte distribution width (RBC) [Ratio] 17.4 % High 11.0-15.0 [facility] Estimated glomerular filtrat ion rate (GFR) non- Americanon 04-12-2024 GFR/1.73 sq M.predicted among non-blacks MDRD (S/P/Bld) [Vol rate/Area] mL/min/{1.73_m2} >=60 [facility] Globulin Calc (S) [Mass/Vol] on 04-12-2024 Globulin (S) [Mass/Vol] 4.1 g/dL [facility] HCG ( test) IA.rapi d Ql (U)on 04-12-2024 HCG ( test) Ql (U) Negative NEGATIVE [facility] Hematocrit Auto (Bld) [Volum e fraction]on 04-12-2024 Hematocrit (Bld) [Volume fraction] 37.9 % 36.0-48.0 [facility] Hemoglobin [Mass/volume] in Bloodon 04-12-2024 Hemoglobin (Bld) [Mass/Vol] 11.6 g/dL Low 12.0-16.0 [facility] Laboratory - Chemistry and C hemistry - challengeon 04-12-2024 Albumin [Mass/Vol] 3.3 g/dL Low 3.4-5.[address] [facility] ALP [Catalytic activity/Vol] 75 U/L 46-116 [facility] ALT [Catalytic activity/Vol] 36 U/L 14-59 [facility] AST [Catalytic activity/Vol] 19 U/L 15-37 [facility] Bilirubin [Mass/Vol] 0.3 mg/dL 0.2-1.0 [facility] Calcium [Mass/Vol] 8.6 mg/dL 8.5-10.[address] [facility] Chloride [Moles/Vol] 101 mmol/L 98-107 [facility] CO2 [Moles/Vol] 28.7 mmol/L 21.0-32.0 [facility] Creatinine [Mass/Vol] 0.70 mg/dL 0.55-1.02 [facility] GFR/1.73 sq M.predicted MDRD (S/P/Bld) [Vol rate/Area] mL/min/{1.73_m2} >=60 [facility] Glucose [Mass/Vol] 103 mg/dL 74-[address] [facility] Potassium [Moles/Vol] 3.7 mmol/L 3.5-5.1 [facility] Protein [Mass/Vol] 7.4 g/dL 6.4-8.[address] [facility] Sodium [Moles/Vol] 136 mmol/L 136-[address] [facility] Urea nitrogen [Mass/Vol] 10.0 mg/dL 7.0-18.0 [facility] Urea nitrogen/Creatinine [Mass ratio] 14.3 mg/mg [facility] Bilirubin Ql (U) Negative NEGATIVE [facility] Glucose (U) [Mass/Vol] Negative NEGATIVE [facility] Ketones Ql (U) Negative NEGATIVE [facility] pH (U) 6.0 [pH] 5.0-9.0 [facility] Specific gravity (U) [Rel density] >=1.030 Abnormal 1.005-1.025 [facility] Urobilinogen Qn (U) 0.2 {Tamiko'U}/dL 0.2-1.0 [facility] Laboratory - Drug toxicology on 08-26-2024 Amphetamines Ql (U) Negative NEGATIVE [facility] Benzodiazepines Ql (U) Negative NEGATIVE Fi [facility]Former[facility] Cocaine Ql (U) Negative NEGATIVE [facility] Opiates Ql (U) Negative NEGATIVE [facility] Phencyclidine Ql (U) Negative NEGATIVE [facility] Laboratory - Hematology and Cell countson 04-12-2024 Immature granulocytes/100 WBC (Bld) 0.3 % 0.0-0.5 [facility] Laboratory - Specimen inform ationon 04-12-2024 Appearance (U) CLEAR CLEAR [facility] Color (U) YELLOW YELLOW [facility] Laboratory - Urinalysison Leukocyte esterase Test strip Ql (U) Negative NEGATIVE [facility] Mucus Ql (Urine sed) TRACE Abnormal NONE SEEN [facility] Nitrite Ql (U) Negative NEGATIVE [facility] Protein Ql (U) Negative NEG/TRACE [facility] Leukocytes [#/volume] correc carmelita for nucleated erythrocytes in Blood by Automated counon 04-12-2024 WBC corrected for nucl RBC Auto (Bld) [#/Vol] 9.9 10 3/uL 4.0-11.0 [facility] Lymphocytes Auto (Bld) [#/Vo l]on 04-12-2024 Lymphocytes (Bld) [#/Vol] 3.5 10 3/uL 1.2-3.8 [facility] Lymphocytes/100 WBC Auto (Bl d)on 04-12-2024 Lymphocytes/100 WBC (Bld) 35.5 % 20.5-60.0 [facility] MCH Auto (RBC) [Entitic mass ]on 04-12-2024 MCH (RBC) [Entitic mass] 24.5 pg Low 26.7-34.0 [facility] MCHC Auto (RBC) [Mass/Vol]on 04-12-2024 MCHC (RBC) [Mass/Vol] 30.6 g/dL 29.9-35.2 [facility] MCV Auto (RBC) [Entitic vol] on 04-12-2024 MCV (RBC) [Entitic vol] 80.1 fL Low 81.0-99.0 [facility] Methadone [Presence] in Urin e by Screen methodon 04-12-2024 Methadone Screen Ql (U) Negative NEGATIVE [facility] Monocytes Auto (Bld) [#/Vol] on 04-12-2024 Monocytes (Bld) [#/Vol] 0.5 10 3/uL 0.3-0.8 [facility] Monocytes/100 WBC Auto (Bld) on 04-12-2024 Monocytes/100 WBC (Bld) 4.7 % 1.7-12.0 [facility] Neutrophils Auto (Bld) [#/Vo l]on 04-12-2024 Neutrophils (Bld) [#/Vol] 5.7 10 3/uL 1.4-6.5 [facility] Neutrophils/100 WBC Auto (Bl d)on 04-12-2024 Neutrophils/100 WBC (Bld) 57.9 % 43.0-75.0 [facility] No Panel Informationon 04-12 Acetaminophen Level <2.0 ug/mL Low 10.0-30.0 [facility] Eosinophils # (Auto) 0.1 10 3/uL 0.0-0.7 [facility] Ethyl Alcohol Level <3 mg/dL [facility] Comment on above: NOTE: 80 mg/dl is th e legal limit for a blood alcohol level Immature Granulocyte # (Auto) 0.03 10 3/uL 0.00-0.03 [facility] Salicylates Level <2.8 mg/dL <=19.9 [facility] Urine Bacteria SMALL #/HPF Abnormal NONE SEEN [facility] Urine Barbiturates Screen Negative NEGATIVE [facility] Urine Culture Reflexed YES [facility] Urine Marijuana (THC) Screen Negative NEGATIVE [facility] Urine Methamphetamines Screen Negative NEGATIVE [facility] Urine Occult Blood Negative NEGATIVE [facility] Urine Other Casts NONE SEEN #/LPF NONE SEEN [facility] Urine Other Crystals None Seen #/HPF None Seen [facility] Urine RBC 0-2 #/HPF 0-2 [facility] Urine Squamous Epithelial Cells FEW #/LPF Abnormal NONE/RARE [facility] Urine Transitional Epithelial Cells RARE #/LPF Abnormal NONE SEEN [facility] Urine WBC 2-5 #/HPF Abnormal NONE SEEN [facility] Platelet mean volume Auto (B ld) [Entitic vol]on 04-12-2024 Platelet mean volume (Bld) [Entitic vol] 10.2 fL 9.5-13.5 [facility] Platelets Auto (Bld) [#/Vol] on 04-12-2024 Platelets (Bld) [#/Vol] 299 10 3/uL 150-450 [facility] RBC Auto (Bld) [#/Vol]on RBC (Bld) [#/Vol] 4.73 10 6/uL 4.20-5.40 [facility] Serum or plasma albumin/glob ulin mass ratioon 04-12-2024 Albumin/Globulin [Mass ratio] 0.8 {ratio} [facility] Serum or plasma anion gap de terminationon 04-12-2024 Anion gap [Moles/Vol] 10.0 mmol/L Fi relaFormerly [facility] Urine tricyclic antidepressa nt measurementon 04-12-2024 Tricyclic antidepressants (U) [Mass/Vol] Negative NEGATIVE [facility] oxyCODONE+oxyMORphone [Prese nce] in Urine by Screen methodon 04-12-2024 oxyCODONE+oxyMORphone Screen Ql (U) Negative NEGATIVE [facility] Basophils Auto (Bld) [#/Vol] on 11-03-2023 Basophils (Bld) [#/Vol] 0.0 10 3/uL 0.0-0.1 [facility] Basophils/100 WBC Auto (Bld) on 11-03-2023 Basophils/100 WBC (Bld) 0.5 % 0.2-2.0 [facility] Eosinophils/100 WBC Auto (Bl d)on 11-03-2023 Eosinophils/100 WBC (Bld) 1.4 % 0.9-7.0 [facility] Erythrocyte distribution wid th Auto (RBC) [Ratio]on 11-03-2023 Erythrocyte distribution width (RBC) [Ratio] 16.3 % 11.0-15.0 [facility] Estimated glomerular filtrat ion rate (GFR) non- Americanon 11-03-2023 GFR/1.73 sq M.predicted among non-blacks MDRD (S/P/Bld) [Vol rate/Area] mL/min/{1.73_m2} >=60 [facility] Globulin Calc (S) [Mass/Vol] on 11-03-2023 Globulin (S) [Mass/Vol] 4.0 g/dL [facility] Hematocrit Auto (Bld) [Volum e fraction]on 11-03-2023 Hematocrit (Bld) [Volume fraction] 26.1 % 36.0-48.0 [facility] Hemoglobin [Mass/volume] in Bloodon 11-03-2023 Hemoglobin (Bld) [Mass/Vol] 7.8 g/dL 12.0-16.0 [facility] Human papilloma virus 16+18+ 31+33+35+39+45+51+52+56+58+59+66+68 DNA [Presence] in [place] 11-03-2023 HPV 16+18+31+33+35+39+45+51+ 52+56+58+59+66+68 DNA Probe+sig amp Ql (Cvx) Negative Negative [facility] Comment on above: This nucleic acid am plification test detects fourteen high-risk HPV types (16,18,31,33,35,39,45,51,52,56,58,59,66,68)without differentiation.Performed at: =G - [facility] [id number] Director: Monse Cardona MD, Phone: [phone] at: - [facility] [address] [id number] Director: Monse Cardona MD, Phone: [phone] Iron binding capacity [Mass/ volume] in Serum or Plasmaon 11-03-2023 Iron binding capacity [Mass/Vol] 512.0 ug/dL 250.0-450.0 [facility] Iron saturation [Mass Fracti on] in Serum or Plasmaon 11-03-2023 Iron saturation [Mass fraction] 2.7 % [facility] Laboratory - Chemistry and C hemistry - challengeon 11-03-2023 Albumin [Mass/Vol] 3.1 g/dL 3.4-5.[address] [facility] ALP [Catalytic activity/Vol] 63 U/L 46-116 [facility] ALT [Catalytic activity/Vol] 29 U/L 14-59 [facility] AST [Catalytic activity/Vol] 18 U/L 15-37 [facility] Bilirubin [Mass/Vol] 0.2 mg/dL 0.2-1.0 [facility] Calcium [Mass/Vol] 8.7 mg/dL 8.5-10.[address] [facility] Chloride [Moles/Vol] 102 mmol/L 98-107 [facility] CO2 [Moles/Vol] 27.6 mmol/L 21.0-32.0 [facility] Creatinine [Mass/Vol] 0.70 mg/dL 0.55-1.02 [facility] Ferritin [Mass/Vol] 6.0 ng/mL 8.0-252.0 [facility] GFR/1.73 sq M.predicted MDRD (S/P/Bld) [Vol rate/Area] mL/min/{1.73_m2} >=60 [facility] Glucose [Mass/Vol] 103 mg/dL 74-[address] [facility] Iron [Mass/Vol] 14.0 ug/dL 50.0-170.0 [facility] Potassium [Moles/Vol] 3.8 mmol/L 3.5-5.1 [facility] Protein [Mass/Vol] 7.1 g/dL 6.4-8.[address] [facility] Sodium [Moles/Vol] 139 mmol/L 136-[address] [facility] Urea nitrogen [Mass/Vol] 11.0 mg/dL 7.0-18.0 [facility] Urea nitrogen/Creatinine [Mass ratio] 15.7 mg/mg [facility] Laboratory - Hematology and Cell countson 11-03-2023 Immature granulocytes/100 WBC (Bld) 0.4 % 0.0-0.5 [facility] Leukocytes [#/volume] correc carmelita for nucleated erythrocytes in Blood by Automated counon 11-03-2023 WBC corrected for nucl RBC Auto (Bld) [#/Vol] 7.4 10 3/uL 4.0-11.0 [facility] Lymphocytes Auto (Bld) [#/Vo l]on 11-03-2023 Lymphocytes (Bld) [#/Vol] 2.5 10 3/uL 1.2-3.8 [facility] Lymphocytes/100 WBC Auto (Bl d)on 11-03-2023 Lymphocytes/100 WBC (Bld) 33.6 % 20.5-60.0 [facility] MCH Auto (RBC) [Entitic mass ]on 11-03-2023 MCH (RBC) [Entitic mass] 24.8 pg 26.7-34.0 [facility] MCHC Auto (RBC) [Mass/Vol]on 11-03-2023 MCHC (RBC) [Mass/Vol] 29.9 g/dL 29.9-35.2 [facility] MCV Auto (RBC) [Entitic vol] on 11-03-2023 MCV (RBC) [Entitic vol] 82.9 fL 81.0-99.0 [facility] Monocytes Auto (Bld) [#/Vol] on 11-03-2023 Monocytes (Bld) [#/Vol] 0.4 10 3/uL 0.3-0.8 [facility] Monocytes/100 WBC Auto (Bld) on 11-03-2023 Monocytes/100 WBC (Bld) 5.6 % 1.7-12.0 [facility] Neutrophils Auto (Bld) [#/Vo l]on 11-03-2023 Neutrophils (Bld) [#/Vol] 4.3 10 3/uL 1.4-6.5 [facility] Neutrophils/100 WBC Auto (Bl d)on 11-03-2023 Neutrophils/100 WBC (Bld) 58.5 % 43.0-75.0 [facility] No Panel Informationon 11-02 Eosinophils # (Auto) 0.1 10 3/uL 0.0-0.7 [facility] Immature Granulocyte # (Auto) 0.03 10 3/uL 0.00-0.03 [facility] HPV High Risk Other Comment Note . [facility] Comment on above: TESTS RESULT FLAG UN ITS REF RANGE LAB --DIAGNOSIS: 02 NEGATIVE FOR INTRAEPITHELIAL LESION OR MALIGNANCY.Specimen adequacy: 02 Satisfactory for evaluation. Endocervical and/or squamous metaplastic cells (endocervical component) are present.Performed by: 02 Beverly Escalante [employer] Architect ([facility]). 02Note: Note 02 The Pap smear is [...] Criteria not met, HPV Genotype not performed. --------- FLAG LEGEND: L-Low Normal,H-High Normal,LL-Alert Low,HH-Alert High <-Panic Low,>-Panic High,A-Abnormal,AA-Critical Abnormal -------Performed at:02 [facility] [address] [place] [address] Monse Cardona MD, Reference Lab Test Patient Age Note . [facility] Comment on above: TESTS RESULT FLAG UN ITS REF RANGE LAB -- Clinician Provided Cytology Information Source.............Cervix;Endocervix No. of containers..01 ThinPrep Gregg YOON Elise... 30-65 - FLAG LEGEND: L-Low Normal,H-High Normal,LL-Alert Low,HH-Alert High <-Panic Low,>-Panic High,A-Abnormal,AA-Critical Abnormal -------Performed at:01 =[facility] [id number] Monse Cardona MD, Platelet mean volume Auto (B ld) [Entitic vol]on 11-03-2023 Platelet mean volume (Bld) [Entitic vol] 9.6 fL 9.5-13.5 [facility] Platelets Auto (Bld) [#/Vol] on 11-03-2023 Platelets (Bld) [#/Vol] 323 10 3/uL 150-450 [facility] RBC Auto (Bld) [#/Vol]on RBC (Bld) [#/Vol] 3.15 10 6/uL 4.20-5.40 [facility] Serum or plasma albumin/glob ulin mass ratioon 11-03-2023 Albumin/Globulin [Mass ratio] 0.8 {ratio} [facility] Serum or plasma anion gap de terminationon 11-03-2023 Anion gap [Moles/Vol] 13.2 mmol/L [facility] Basophils Auto (Bld) [#/Vol] on 10-30-2023 Basophils (Bld) [#/Vol] 0.0 10 3/uL 0.0-0.1 [facility] Basophils/100 WBC Auto (Bld) on 10-30-2023 Basophils/100 WBC (Bld) 0.6 % 0.2-2.0 [facility] Eosinophils/100 WBC Auto (Bl d)on 10-30-2023 Eosinophils/100 WBC (Bld) 1.2 % 0.9-7.0 [facility] Erythrocyte distribution wid th Auto (RBC) [Ratio]on 10-30-2023 Erythrocyte distribution width (RBC) [Ratio] 16.6 % 11.0-15.0 [facility] Estimated glomerular filtrat ion rate (GFR) non- Americanon 10-30-2023 GFR/1.73 sq M.predicted among non-blacks MDRD (S/P/Bld) [Vol rate/Area] mL/min/{1.73_m2} >=60 [facility] HCG ( test) IA.rapi d Ql (U)on 10-30-2023 HCG ( test) Ql (U) Negative NEGATIVE [facility] Hematocrit Auto (Bld) [Volum e fraction]on 10-30-2023 Hematocrit (Bld) [Volume fraction] 26.6 % 36.0-48.0 [facility] Hemoglobin [Mass/volume] in Bloodon 10-30-2023 Hemoglobin (Bld) [Mass/Vol] 7.9 g/dL 12.0-16.0 [facility] Laboratory - Chemistry and C hemistry - challengeon 10-30-2023 Calcium [Mass/Vol] 8.5 mg/dL 8.5-10.[address] [facility] Chloride [Moles/Vol] 101 mmol/L 98-107 [facility] CO2 [Moles/Vol] 28.8 mmol/L 21.0-32.0 [facility] Creatinine [Mass/Vol] 0.62 mg/dL 0.55-1.02 [facility] GFR/1.73 sq M.predicted MDRD (S/P/Bld) [Vol rate/Area] mL/min/{1.73_m2} >=60 [facility] Glucose [Mass/Vol] 104 mg/dL 74-[address] [facility] Potassium [Moles/Vol] 4.0 mmol/L 3.5-5.1 [facility] Sodium [Moles/Vol] 137 mmol/L 136-[address] [facility] Urea nitrogen [Mass/Vol] 8.0 mg/dL 7.0-18.0 [facility] Urea nitrogen/Creatinine [Mass ratio] 12.9 mg/mg [facility] Laboratory - Hematology and Cell countson 10-30-2023 Immature granulocytes/100 WBC (Bld) 0.4 % 0.0-0.5 [facility] Leukocytes [#/volume] correc carmelita for nucleated erythrocytes in Blood by Automated counon 10-30-2023 WBC corrected for nucl RBC Auto (Bld) [#/Vol] 7.3 10 3/uL 4.0-11.0 [facility] Lymphocytes Auto (Bld) [#/Vo l]on 10-30-2023 Lymphocytes (Bld) [#/Vol] 2.2 10 3/uL 1.2-3.8 [facility] Lymphocytes/100 WBC Auto (Bl d)on 10-30-2023 Lymphocytes/100 WBC (Bld) 30.2 % 20.5-60.0 [facility] MCH Auto (RBC) [Entitic mass ]on 10-30-2023 MCH (RBC) [Entitic mass] 25.0 pg 26.7-34.0 [facility] MCHC Auto (RBC) [Mass/Vol]on 10-30-2023 MCHC (RBC) [Mass/Vol] 29.7 g/dL 29.9-35.2 [facility] MCV Auto (RBC) [Entitic vol] on 10-30-2023 MCV (RBC) [Entitic vol] 84.2 fL 81.0-99.0 [facility] Monocytes Auto (Bld) [#/Vol] on 10-30-2023 Monocytes (Bld) [#/Vol] 0.3 10 3/uL 0.3-0.8 [facility] Monocytes/100 WBC Auto (Bld) on 10-30-2023 Monocytes/100 WBC (Bld) 3.7 % 1.7-12.0 [facility] Neutrophils Auto (Bld) [#/Vo l]on 10-30-2023 Neutrophils (Bld) [#/Vol] 4.6 10 3/uL 1.4-6.5 [facility] Neutrophils/100 WBC Auto (Bl d)on 10-30-2023 Neutrophils/100 WBC (Bld) 63.9 % 43.0-75.0 [facility] No Panel Informationon 10-29 Eosinophils # (Auto) 0.1 10 3/uL 0.0-0.7 [facility] Immature Granulocyte # (Auto) 0.03 10 3/uL 0.00-0.03 [facility] Platelet mean volume Auto (B ld) [Entitic vol]on 10-30-2023 Platelet mean volume (Bld) [Entitic vol] 9.4 fL 9.5-13.5 [facility] Platelets Auto (Bld) [#/Vol] on 10-30-2023 Platelets (Bld) [#/Vol] 264 10 3/uL 150-450 [facility] RBC Auto (Bld) [#/Vol]on RBC (Bld) [#/Vol] 3.16 10 6/uL 4.20-5.40 [facility] Serum or plasma anion gap de terminationon 10-30-2023 Anion gap [Moles/Vol] 11.2 mmol/L [facility] MR head/brain wo/w conon MR head/brain wo/w con [facility] [place] [address] MRI Report Signed Patient: Ashly Mehta MR#: [id number] 8 : 1990 Acct:[id number] Age/Sex: 33 / F ADM Date: 10/08/23 Loc: MR Room: Type: [facility] Attending Dr: Akil Cox DO Copies to: [...] Ivan Holliday M.D.10/08/2023 4:38 PM Dictation Location: [place] [address] Transcribed By: [facility] 10/08/23 1638 Dictated By: Ivan Holliday II, MD 10/08/23 1630 Signed By: 10/08/23 1638 Normal [facility] HCG ( test) IA.rapi d Ql (U)on 10-06-2023 HCG ( test) Ql (U) Negative NEGATIVE [facility] COVID + FLU Quick Testingon 07-07-2023 SARS-CoV-2 (COVID-19) RNA SURI+probe Ql (Unsp spec) Negative [employer] Other COVID + FLU Quick Testing Negative [facility] Other Alanine aminotransferase [En zymatic activity/volume] in Serum or PlasmaOrdered By: Celio Mullins on 07-03-2023 ALT [Catalytic activity/Vol] 22 U/L Normal 7-52 [facility] Comment on above: Performed By: #### C MP, LIPID #### [place] [address] [place] Albumin [Mass/volume] in Ser um or Plasma by Bromocresol green (BCG) dye binding methoOrdered By: Celio Mullins on 07-03-2023 Albumin BCG dye [Mass/Vol] 4.4 g/dL 3.5-5.7 [facility] Alkaline phosphatase [Enzyma tic activity/volume] in Serum or PlasmaOrdered By: Celio Mullins on 07-03-2023 ALP [Catalytic activity/Vol] 68 U/L Normal 34-104 [facility] Comment on above: Performed By: #### C MP, LIPID #### [address] Aspartate aminotransferase [ Enzymatic activity/volume] in Serum or PlasmaOrdered By: Celio Mullins on 07-03-2023 AST [Catalytic activity/Vol] 18 U/L Normal 13-39 [facility] Comment on above: Performed By: #### C MP, LIPID #### [place] [address] [place] Bilirubin.total [Mass/volume ] in Serum or PlasmaOrdered By: Celio Mullins on 07-03-2023 Bilirubin [Mass/Vol] 0.4 mg/dL Normal 0.3-1.0 [facility] Comment on above: Performed By: #### C MP, LIPID #### [place], [place] [address] [place] Calcium [Mass/volume] in Ser um or PlasmaOrdered By: Celio Mullins on 07-03-2023 Calcium [Mass/Vol] 9.4 mg/dL Normal 8.6-10.[address] [facility] Comment on above: Performed By: #### C MP, LIPID #### [place] [address] [place] Carbon dioxide, total [Moles /volume] in Serum or PlasmaOrdered By: Celio Mullins on 07-03-2023 CO2 [Moles/Vol] 30.1 mmol/L Normal 21.0-31.0 [facility] Comment on above: Performed By: #### C MP, LIPID #### [facility] [address] [place] [address] [place] Chloride [Moles/volume] in S marta or PlasmaOrdered By: Celio Mullins on 07-03-2023 Chloride [Moles/Vol] 105 mmol/L Normal 98-107 [facility] Comment on above: Performed By: #### C MP, LIPID #### [facility] [address] [place] [address] [place] Cholesterol [Mass/volume] in Serum or PlasmaOrdered By: Celio Mullins on 07-03-2023 Cholesterol [Mass/Vol] 126 mg/dL Low 140-200 [facility] Comment on above: Chol less than 200 m g/dl low riskChol 201-239 mg/dl borderline riskChol 240 mg/dl and greater high risk Result Comment: Chol less than 200 mg/dl low risk Chol 201-239 mg/dl borderline risk Chol 240 mg/dl and greater high risk Performed By: #### C MP, LIPID #### [facility] [address] [place] [address] [place] Cholesterol in LDL Calc [Mas s/Vol]Ordered By: Celio Mullins on 07-03-2023 Cholesterol in LDL [Mass/Vol] 69 mg/dL 0-100 [facility] Comment on above: LDL ATP III CLASSIFI CATIONLDL less than 100 mg/dL OptimalLDL 100-129 mg/dL Near or above optimalLDL 130-159 mg/dL Borderline highLDL 160-189 mg/dL HighLDL greater than 189 mg/dL Very high Cholesterol in VLDL Calc [Ma ss/Vol]Ordered By: Celio Mullins on 07-03-2023 Cholesterol in VLDL [Mass/Vol] 18 mg/dL [facility] Comprehensive Metabolic Pane landon 07-03-2023 Albumin [Mass/Vol] 4.4 g/dL Normal 3.5-5.7 [facility] Comment on above: Performed By: #### C MP, LIPID #### [facility] [address] [place] [address] [place] GFR/1.73 sq M.predicted MDRD (S/P/Bld) [Vol rate/Area] mL/min/{1.73_m2} Normal [facility] Comment on above: Performed By: #### C MP, LIPID #### [facility] [address] Creatinine [Mass/volume] in Serum or PlasmaOrdered By: Celio Mullins on 07-03-2023 Creatinine [Mass/Vol] 0.63 mg/dL Normal 0.60-1.20 [facility] Comment on above: Performed By: #### C MP, LIPID #### [facility] [address] [place] [address] [place] Glucose [Mass/volume] in Ser um or PlasmaOrdered By: Celio Mullins on 07-03-2023 Glucose [Mass/Vol] 97 mg/dL Normal 70-[address] [facility] Comment on above: ADA recommended refe rence rangeRandom Glucose Reference Range is dependent on time and content of last meal. Glucose of more than 200 mg/dL in a nonstressed, ambulatory subject supports the diagnosis of Diabetes Mellitus. Result Comment: [place] om Glucose Reference Range is dependent on time and content of last meal. Glucose of more than 200 mg/dL in a nonstressed, ambulatory subject supports the diagnosis of Diabetes Mellitus. ADA recommended reference range Performed By: #### C WILBERT, LIPID #### [facility] [address] [place] [id number] [facility] Lipid Panelon 07-03-2023 LDL Cholesterol,Calculated 69 mg/dL Normal 0-100 [facility] Comment on above: Result Comment: LDL ATP III CLASSIFICATION LDL less than 100 mg/dL Optimal LDL 100-129 mg/dL Near or above optimal LDL 130-159 mg/dL Borderline high LDL 160-189 mg/dL High LDL greater than 189 mg/dL Very high Performed By: #### C MP, LIPID #### [facility] [address] [place] [id number] [place] Triglyceride w/Reflex 92 mg/dL Normal 0-149 [facility] Comment on above: Result Comment: TRIG ATP III CLASSIFICATION TRIG less than 150 mg/dL Normal TRIG 150-199 mg/dL Borderline high TRIG 200-500 mg/dL High TRIG greater than 500 mg/dL Very high Standard traceable to the Center for Disease Conrtrol and Prevention (CDC) test method. Performed By: #### C MP, LIPID #### [address] VLDL CHOLESTEROL 18 mg/dL Normal [facility] Comment on above: Performed By: #### C MP, LIPID #### [address] No Panel InformationOrdered By: Celio Mullins on 07-03-2023 Estimated GFR (CKD-EPI) > 60.0 mL/Min [facility] Creatinine Clearance (Chem N/A [facility] Potassium [Moles/volume] in Serum or PlasmaOrdered By: Celio Mullins on 07-03-2023 Potassium [Moles/Vol] 4.3 mmol/L Normal 3.5-5.1 [facility] Comment on above: Performed By: #### C MP, LIPID #### [address] Protein [Mass/volume] in Ser um or PlasmaOrdered By: Celio Mullins on 07-03-2023 Protein [Mass/Vol] 7.5 g/dL Normal 6.4-8.[address] [facility] Comment on above: Performed By: #### C MP, LIPID #### [address] Serum globulin measurement b y calculation (mass/volume)Ordered By: Celio Mullins on 07-03-2023 Globulin (S) [Mass/Vol] 3.1 g/dL Normal [facility] Comment on above: Performed By: #### C MP, LIPID #### [address] Serum or plasma albumin/glob ulin mass ratioOrdered By: Celio Mullins on 07-03-2023 Albumin/Globulin [Mass ratio] 1.4 {ratio} Normal [facility] Comment on above: Performed By: #### C MP, LIPID #### [address] Serum or plasma anion gap de terminationOrdered By: Celio Mullins on 07-03-2023 Anion gap [Moles/Vol] 10.2 mmol/L Normal 6.0-15.0 [facility] Comment on above: Performed By: #### C MP, LIPID #### [address] Serum or plasma high density lipoprotein (HDL) cholesterol measurementOrdered By: Celio Mullins on 07-03-2023 Cholesterol in HDL [Mass/Vol] 39 mg/dL Normal 23-92 [facility] Comment on above: HDL CHOL ATP-III CLA SSIFICATION Cardiovascular RiskHDL > or equal to 60 mg/dL LOWHDL < 40 mg/dL HIGH Result Comment: HDL CHOL ATP-III CLASSIFICATION Cardiovascular Risk HDL > or equal to 60 mg/dL LOW HDL < 40 mg/dL HIGH Performed By: #### C MP, LIPID #### [address] Serum or plasma total choles terol/high density lipoprotein (HDL) cholesterol mass ratOrdered By: Celio Mullins on 07-03-2023 Cholesterol.total/Choles terol in HDL [Mass ratio] 3.2 {ratio} Normal <5.0 [facility] Comment on above: Result Comment: PERF ORMED BY: [place] [address] PATHOLOGIST METER INSTALLER NESHA MAIER M.D. Performed By: #### C MP, LIPID #### [facility] [address] [place] [address] Sodium [Moles/volume] in Ser um or PlasmaOrdered By: Celio Mullins on 07-03-2023 Sodium [Moles/Vol] 141 mmol/L Normal 136-[address] [facility] Comment on above: Performed By: #### C MP, LIPID #### [facility] [address] [place] [address] [place] Triglyceride [Mass/volume] i n Serum or PlasmaOrdered By: Celio Mullins on 07-03-2023 Triglyceride [Mass/Vol] 92 mg/dL 0-149 [facility] Comment on above: TRIG ATP III CLASSIF ICATIONTRIG less than 150 mg/dL NormalTRIG 150-199 mg/dL Borderline highTRIG 200-500 mg/dL High TRIG greater than 500 mg/dL Very highStandard traceable to the Center for Disease Conrtrol and Prevention (CDC) test method. Urea nitrogen [Mass/volume] in Serum or PlasmaOrdered By: Celio Mullins on 07-03-2023 Urea nitrogen [Mass/Vol] 13 mg/dL Normal 7-25 [facility] Comment on above: Performed By: #### C MP, LIPID #### [facility] [address] A1C with Estimated Average G luon 07-01-2023 Glucose [Mass/Vol] 117 mg/dL Normal [facility] Comment on above: Order Comment: Reaso n for Exam Severe obesity (BMI >= 40);PCOS (polycystic ovarian syndrome Result Comment: PERF ORMED BY: [place] [address] PATHOLOGIST METER INSTALLER NESHA MAIER M.D. Performed By: #### A POB, LIPA #### [facility] , #### CMP, A1C WTH eA #### [facility] [address] [place] [id number] [place] Alanine aminotransferase [En zymatic activity/volume] in Serum or PlasmaOrdered By: Celio Mullins on 07-01-2023 ALT [Catalytic activity/Vol] 21 U/L Normal 7-52 [facility] Comment on above: Order Comment: Reaso n for Exam Severe obesity (BMI >= 40);PCOS (polycystic ovarian syndrome NON FASTING Performed By: #### A POB, LIPA #### [facility] , #### CMP, A1C WTH eA #### [facility] [address] [place] [id number] [place] Albumin [Mass/volume] in Ser um or Plasma by Bromocresol green (BCG) dye binding methoOrdered By: Celio Mullins on 07-01-2023 Albumin BCG dye [Mass/Vol] 4.6 g/dL 3.5-5.7 [facility] Alkaline phosphatase [Enzyma tic activity/volume] in Serum or PlasmaOrdered By: Celio Mullins on 07-01-2023 ALP [Catalytic activity/Vol] 72 U/L Normal 34-104 [facility] Comment on above: Order Comment: Michela slater for Exam Severe obesity (BMI >= 40);PCOS (polycystic ovarian syndrome NON FASTING Result Comment: PERF ORMED BY: [facility] [address] [place] [address] PATHOLOGIST METER INSTALLER NESHA MAIER M.D. Performed By: #### A POB, LIPA #### [facility] , #### CMP, A1C WTH eA #### [facility] [address] Apolipoprotein B [Mass/volum e] in Serum or PlasmaOrdered By: Celio Mullins on 07-01-2023 Apolipoprotein B [Mass/Vol] 83 mg/dL Normal <90 [facility] Comment on above: Desirable < 90 Charissa gantine High 90 - 99 High 100 - 130 Very High >130 ASCVD RISK THERAPEUTIC TARGET CATEGORY APO B (mg/dL) Very High Risk <80 (if extreme risk <70) High Risk <90 Moderate Risk <90Performed at: [facility] [id number] Director: Jeanna Case MD, Phone: [phone] Order Comment: Niharikao n for Exam Severe obesity (BMI >= 40);PCOS (polycystic ovarian syndrome Result Comment: Hedy osuna < 90 Borderline High 90 - 99 High 100 - 130 Very High >130 ASCVD RISK THERAPEUTIC TARGET CATEGORY APO B (mg/dL) Very High Risk <80 (if extreme risk <70) High Risk <90 Moderate Risk <90 Performed at: [facility] [id number] Umbrella Mender: Jeanna Case MD, Phone: [phone] PERFORMED BY: [place] [address] PATHOLOGIST METER INSTALLER NESHA MAIER M.D. Performed By: #### A POB, LIPA #### [facility] , #### CMP, A1C WTH eA #### [facility] [address] [place] [address] Aspartate aminotransferase [ Enzymatic activity/volume] in Serum or PlasmaOrdered By: Celio Mullins on 07-01-2023 AST [Catalytic activity/Vol] 19 U/L Normal 13-39 [facility] Comment on above: Order Comment: Reaso n for Exam Severe obesity (BMI >= 40);PCOS (polycystic ovarian syndrome NON FASTING Performed By: #### A POB, LIPA #### [facility] , #### CMP, A1C WTH eA #### [address] Bilirubin.total [Mass/volume ] in Serum or PlasmaOrdered By: Celio Mullins on 07-01-2023 Bilirubin [Mass/Vol] 0.4 mg/dL Normal 0.3-1.0 [facility] Comment on above: Order Comment: Reaso n for Exam Severe obesity (BMI >= 40);PCOS (polycystic ovarian syndrome NON FASTING Performed By: #### A POB, LIPA #### [facility] , #### CMP, A1C WTH eA #### [place] [address] [place] Calcium [Mass/volume] in Ser um or PlasmaOrdered By: Celio Mullins on 07-01-2023 Calcium [Mass/Vol] 9.8 mg/dL Normal 8.6-10.[address] [facility] Comment on above: Order Comment: Reaso n for Exam Severe obesity (BMI >= 40);PCOS (polycystic ovarian syndrome NON FASTING Performed By: #### A POB, LIPA #### [facility] , #### CMP, A1C WTH eA #### [facility] [address] [place] [id number] [place] Carbon dioxide, total [Moles /volume] in Serum or PlasmaOrdered By: Celio Mullins on 07-01-2023 CO2 [Moles/Vol] 25.3 mmol/L Normal 21.0-31.0 [facility] Comment on above: Order Comment: Reaso n for Exam Severe obesity (BMI >= 40);PCOS (polycystic ovarian syndrome NON FASTING Performed By: #### A POB, LIPA #### [facility] , #### CMP, A1C WT eA #### [facility] [address] [place] [address] [place] Chloride [Moles/volume] in S marta or PlasmaOrdered By: Celio Mullins on 07-01-2023 Chloride [Moles/Vol] 105 mmol/L Normal 98-107 [facility] Comment on above: Order Comment: Reaso n for Exam Severe obesity (BMI >= 40);PCOS (polycystic ovarian syndrome NON FASTING Performed By: #### A POB, LIPA #### [facility] , #### CMP, A1C [facility] eA #### [facility] [address] [place] [address] Comprehensive Metabolic Pane landon 07-01-2023 Albumin [Mass/Vol] 4.6 g/dL Normal 3.5-5.7 [facility] Comment on above: Order Comment: Reaso n for Exam Severe obesity (BMI >= 40);PCOS (polycystic ovarian syndrome NON FASTING Performed By: #### A POB, LIPA #### [facility] , #### CMP, A1C [facility] eA #### [facility] [address] [place] [id number] [place] GFR/1.73 sq M.predicted MDRD (S/P/Bld) [Vol rate/Area] mL/min/{1.73_m2} Normal [facility] Comment on above: Order Comment: Reaso n for Exam Severe obesity (BMI >= 40);PCOS (polycystic ovarian syndrome NON FASTING Performed By: #### A POB, LIPA #### [facility] , #### CMP, A1C WTH eA #### [facility] [address] [place] [id number] [place] Creatinine [Mass/volume] in Serum or PlasmaOrdered By: Celio Mullins on 07-01-2023 Creatinine [Mass/Vol] 0.64 mg/dL Normal 0.60-1.20 [facility] Comment on above: Order Comment: Reaso n for Exam Severe obesity (BMI >= 40);PCOS (polycystic ovarian syndrome NON FASTING Performed By: #### A POB, LIPA #### [facility] , #### CMP, A1C WTH eA #### [facility] [address] [place] [id number] [place] Glucose [Mass/volume] in Ser um or PlasmaOrdered By: Celio Mullins on 07-01-2023 Glucose [Mass/Vol] 95 mg/dL Normal 70-[address] [facility] Comment on above: ADA recommended refe rence rangeRandom Glucose Reference Range is dependent on time and content of last meal. Glucose of more than 200 mg/dL in a nonstressed, ambulatory subject supports the diagnosis of Diabetes Mellitus. Order Comment: Reaso n for Exam Severe obesity (BMI >= 40);PCOS (polycystic ovarian syndrome NON FASTING Result Comment: [place] om Glucose Reference Range is dependent on time and content of last meal. Glucose of more than 200 mg/dL in a nonstressed, ambulatory subject supports the diagnosis of Diabetes Mellitus. ADA recommended reference range Performed By: #### A POB, LIPA #### [facility] , #### CMP, A1C WTH eA #### [facility] [address] [place] [id number] [place] Glucose mean value [Mass/vol ume] in Blood Estimated from glycated hemoglobinOrdered By: Celio Mullins on 07-01-2023 Average glucose Estimated from glycated hemoglobin (Bld) [Mass/Vol] 117 mg/dL [facility] Hemoglobin A1c percentageOrd ered By: Celio Mullins on 07-01-2023 HbA1c (Bld) [Mass fraction] 5.7 % High 4.3-5.6 [facility] Comment on above: Increased risk for d [...] , #### CMP, A1C WTH eA #### [facility] [address] Lipoprotein (a)on 07-01-2023 Lipoprotein a [Mass/Vol] 13.0 mg/dL Normal <75.0 [facility] Comment on above: Order Comment: Reaso n for Exam Severe obesity (BMI >= 40);PCOS (polycystic ovarian syndrome Result Comment: Note : Values greater than or equal to 75.0 nmol/L may indicate an independent risk factor for CHD, but must be evaluated with caution when applied to non- populations due to the influence of genetic factors on Lp(a) across ethnicities. Performed at: [facility] [employer] [id number] Umbrella Mender: Cassius Zhong PhD, Phone: [phone] Performed By: #### A POB, LIPA #### [facility] , #### CMP, A1C WT eA #### [facility] [address] No Panel InformationOrdered By: Celio Mullins on 07-01-2023 Estimated GFR (CKD-EPI) > 60.0 mL/Min [facility] Creatinine Clearance (Chem N/A [facility] Potassium [Moles/volume] in Serum or PlasmaOrdered By: Celio Mullins on 07-01-2023 Potassium [Moles/Vol] 3.8 mmol/L Normal 3.5-5.1 [facility] Comment on above: Order Comment: Reaso n for Exam Severe obesity (BMI >= 40);PCOS (polycystic ovarian syndrome NON FASTING Performed By: #### A POB, LIPA #### [facility] , #### CMP, A1C WTH eA #### [facility] [address] [place] [address] Protein [Mass/volume] in Ser um or PlasmaOrdered By: Celio Mullins on 07-01-2023 Protein [Mass/Vol] 7.8 g/dL Normal 6.4-8.[address] [facility] Comment on above: Order Comment: Reaso n for Exam Severe obesity (BMI >= 40);PCOS (polycystic ovarian syndrome NON FASTING Performed By: #### A POB, LIPA #### [facility] , #### CMP, A1C WTH eA #### [address] Serum globulin measurement b y calculation (mass/volume)Ordered By: Celio Mullins on 07-01-2023 Globulin (S) [Mass/Vol] 3.2 g/dL Normal [facility] Comment on above: Order Comment: Reaso n for Exam Severe obesity (BMI >= 40);PCOS (polycystic ovarian syndrome NON FASTING Performed By: #### A POB, LIPA #### [facility] , #### CMP, A1C WTH eA #### [address] Serum or plasma albumin/glob ulin mass ratioOrdered By: Celio Mullins on 07-01-2023 Albumin/Globulin [Mass ratio] 1.4 {ratio} Normal [facility] Comment on above: Order Comment: Reaso n for Exam Severe obesity (BMI >= 40);PCOS (polycystic ovarian syndrome NON FASTING Performed By: #### A POB, LIPA #### [facility] , #### CMP, A1C WTH eA #### [facility] [address] [place] [address] Serum or plasma anion gap de terminationOrdered By: Celio Mullins on 07-01-2023 Anion gap [Moles/Vol] 11.5 mmol/L Normal 6.0-15.0 [facility] Comment on above: Order Comment: Reaso n for Exam Severe obesity (BMI >= 40);PCOS (polycystic ovarian syndrome NON FASTING Performed By: #### A POB, LIPA #### [facility] , #### CMP, A1C WTH eA #### [address] Serum or plasma lipoprotein a measurement (moles/volume)Ordered By: Celio Mullins on 07-01-2023 Lipoprotein a [Moles/Vol] 13.0 nmol/L <75.0 [facility] Comment on above: Note: Values greater than or equal to 75.0 nmol/L may indicate an independent risk factor for CHD, but must be evaluated with caution when applied to non- populations due to the influence of genetic factors on Lp(a) across ethnicities.Performed at: - [facility] Director: Cassius Zhong PhD, Phone: [phone] Sodium [Moles/volume] in Ser um or PlasmaOrdered By: Celio Mullins on 07-01-2023 Sodium [Moles/Vol] 138 mmol/L Normal 136-[address] [facility] Comment on above: Order Comment: Reaso n for Exam Severe obesity (BMI >= 40);PCOS (polycystic ovarian syndrome NON FASTING Performed By: #### A POB, LIPA #### [facility] , #### CMP, A1C WT eA #### [address] Urea nitrogen [Mass/volume] in Serum or PlasmaOrdered By: Celio Mullins on 07-01-2023 Urea nitrogen [Mass/Vol] 16 mg/dL Normal 7-25 [facility] Comment on above: Order Comment: Reaso n for Exam Severe obesity (BMI >= 40);PCOS (polycystic ovarian syndrome NON FASTING Performed By: #### A POB, LIPA #### [facility] , #### CMP, A1C WTH eA #### [address] COVID Quick Testingon 2022 Result Negative [employer] [facility] [employer] Other SARS-CoV-2 (COVID-19) RNA NA A+probe Ql (Resp)on 02-11-2023 SARS-CoV-2 (COVID-19) RNA SURI+probe Ql (Unsp spec) Negative [employer] [facility] [employer] Other DHEA-SULFATEon 01-01-2023 DHEA-Sulfate 95.3 ug/dL Normal 84.8-378.0 [facility] Comment on above: Performed By: #### D RIMA #### [facility] [address] [place] [address] Dr. Kaushik Palomares FSHon 01-01-2023 FSH 4.6 mIU/mL Normal [facility] Comment on above: Result Comment: Adul t Female: Follicular phase 3.5 - 12.5 Ovulation phase 4.7 - 21.5 Luteal phase 1.7 - 7.7 Postmenopausal 25.8 - 134.8 Performed By: #### C BC #### [facility] [address] [place] [address] Dr. Kaushik Palomares LUTEINIZING HORMONE (LH)on 01-01-2023 LH 3.5 mIU/mL Normal [facility] Comment on above: Result Comment: Adul t Female: Follicular phase 2.4 - 12.6 Ovulation phase 14.0 - 95.6 Luteal phase 1.0 - 11.4 Postmenopausal 7.7 - 58.5 Performed By: #### L BCL #### [facility] [address] [place] [address] Dr. Kaushik Palomares CBC AUTO DIFFon 12-31-2022 BASO # 0.1 103/ul Normal 0.0-0.1 [facility] Comment on above: Performed By: #### C BC #### [facility] [address] [place] [address] Dr. Kaushik Palomares Basophils/100 WBC (Bld) 0.8 % Normal 0.2-2.0 [facility] Comment on above: Performed By: #### C BC #### [facility] [address] [place] [address] Dr. Kaushik Palomares EO # 0.1 103/ul Normal 0.0-0.7 [facility] Comment on above: Performed By: #### C BC #### [facility] [address] [place] [address] Dr. Kaushik Palomares Eosinophils/100 WBC (Bld) 1.7 % Normal 0.9-7.0 [facility] Comment on above: Performed By: #### C BC #### [facility] [address] [place] [address] Dr. Kaushik Palomares Erythrocyte distribution width (RBC) [Ratio] 12.8 % Normal 11.0-15.0 [facility] Comment on above: Performed By: #### C BC #### [facility] [address] [place] [address] Dr. Kaushik Palomares Hematocrit (Bld) [Volume fraction] 33.0 % Critically low 36.0-48.0 [facility] Comment on above: Performed By: #### C BC #### [facility] [address] [place] [address] Dr. Kaushik Palomares Hemoglobin (Bld) [Mass/Vol] 11.0 g/dL Critically low 12.0-16.0 [facility] Comment on above: Performed By: #### C BC #### [facility] [address] [place] [address] Dr. Kaushik Palomares IG # 0.03 10e3/ul Normal 0.00-0.03 [facility] Comment on above: Performed By: #### C BC #### [facility] [address] [place] [address] Dr. Kaushik Palomares IG % 0.5 % Normal 0.0-0.5 [facility] Comment on above: Performed By: #### C BC #### [facility] [address] [place] [address] Dr. Kaushik Palomares LYMPH # 2.4 103/ul Normal 1.2-3.8 [facility] Comment on above: Performed By: #### C BC #### [facility] [address] [place] [address] Dr. Kaushik Palomares Lymphocytes/100 WBC (Bld) 36.6 % Normal 20.5-60.0 [facility] Comment on above: Performed By: #### C BC #### [facility] [address] [place] [address] Dr. Kaushik Palomares MANUAL DIFF REQ NO Normal [facility] Comment on above: Performed By: #### C BC #### [facility] [address] [place] [address] Dr. Kaushik Palomares MCH (RBC) [Entitic mass] 29.0 pg Normal 26.7-34.0 [facility] Comment on above: Performed By: #### C BC #### [facility] [address] [place] [address] Dr. Kaushik Palomares MCHC (RBC) [Mass/Vol] 33.3 g/dL Normal 29.9-35.2 [facility] Comment on above: Performed By: #### C BC #### [facility] [address] [place] [address] Dr. Kaushik Palomares MCV (RBC) [Entitic vol] 87.1 fL Normal 81.0-99.0 [facility] Comment on above: Performed By: #### C BC #### [facility] [address] [place] [address] Dr. Kaushik Palomares MONO # 0.2 103/ul Critically low 0.3-0.8 [facility] Comment on above: Performed By: #### C BC #### [facility] [address] [place] [address] Dr. Kaushik Palomares Monocytes/100 WBC (Bld) 3.6 % Normal 1.7-12.0 [facility] Comment on above: Performed By: #### C BC #### [facility] [address] [place] [address] Dr. Kaushik Palomares NEUT # 3.7 103/ul Normal 1.4-6.5 [facility] Comment on above: Performed By: #### C BC #### [facility] [address] [place] [address] Dr. Kaushik Palomares Neutrophils/100 WBC (Bld) 56.8 % Normal 43.0-75.0 [facility] Comment on above: Performed By: #### C BC #### [facility] [address] [place] [address] Dr. Kaushik Palomares Platelet mean volume (Bld) [Entitic vol] 9.8 fL Normal 9.5-13.5 [facility] Comment on above: Performed By: #### C BC #### [facility] [address] [address] [address] Kaushik Palomares PLT 234 103/ul Normal 150-450 [facility] Comment on above: Performed By: #### C BC #### [facility] [address] [place] [address] Dr. Kaushik Palomares RBC 3.79 106/ul Critically low 4.20-5.40 [facility] Comment on above: Performed By: #### C BC #### [facility] [address] [place] [address] Dr. Kaushik Palomares WBC 6.5 103/ul Normal 4.0-11.0 [facility] Comment on above: Performed By: #### C BC #### [facility] [address] [place] [address] Dr. Kaushik Palomares FREE T4on 12-31-2022 Free T4 [Mass/Vol] 0.79 ng/dL Normal 0.76-1.46 [facility] Comment on above: Performed By: #### F T4 #### [facility] [address] [place] [address] Dr. Kaushik Palomares GLYCOHEMOGLOBIN A1Con 2022 ADA RECOMMENDATION SEE BELOW Normal [facility] Comment on above: Result Comment: ADA RECOMMENDED LIMIT 4.0 - 6.0 ADA THERAPEUTIC TARGET < 7.0 ACTION SUGGESTED > 7.0 Performed By: #### A 1C #### [facility] [address] [place] [address] Dr. Kaushik Palomares Glucose [Mass/Vol] 111 mg/dL Normal [facility] Comment on above: Performed By: #### A 1C #### [facility] [address] [address] [address] Kaushik Palomares HbA1c (Bld) [Mass fraction] 5.5 % Normal 4.5-6.2 [facility] Comment on above: Performed By: #### A 1C #### [facility] [address] [address] [address] Kaushik Palomares TSHon 12-31-2022 TSH 1.114 uIU/mL Normal 0.358-3.740 [facility] Comment on above: Performed By: #### C BC #### [facility] [address], [place] [address] Dr. Kaushik Palomares US PELVIS AND TRANSVAGon [...] SUGEY MACDONALD Date: 2022-11-26 15:58 Normal [facility] XR SACRUM_COCCYXon 3 XR SACRUM_COCCYX [...] 2022-11-08 10:01 Normal [facility] PAP ACOG PANEL 2: 30 to 65on 11-05-2022 . . Normal [facility] Comment on above: Result Comment: Perf ormed at: WB Performed By: #### C BC #### [facility] [address] [address] [address] Kaushik Palomares Age Gdln ACOG Testing 30-65 Normal [facility] Comment on above: Performed By: #### C BC #### [facility] [address] [address] [address] Kaushik Palomares DIAGNOSIS: Comment Normal [facility] Comment on above: Result Comment: NEGA TIVE FOR INTRAEPITHELIAL LESION OR MALIGNANCY. Performed at: WB Performed By: #### C BC #### [facility] [address] [address] [address] Kaushik Palomares HPV Aptima Negative Normal Negative [facility] Comment on above: Result Comment: This nucleic acid amplification test detects fourteen high-risk HPV types (16,18,31,33,35,39,45,51,52,56,58,59,66,68) without differentiation. Performed at: =G Performed By: #### C BC #### [facility] [address] [address] [address] Kaushik Palomares HPV Genotype Reflex Comment Normal [facility] Comment on above: Result Comment: Crit eria not met, HPV Genotype not performed. Performed at: WB Performed By: #### C BC #### [facility] [address] [address] [address] Kaushik Palomares Methodology: Comment Normal [facility] Comment on above: Result Comment: This liquid based ThinPrep(R) pap test was screened with the use of an image guided system. Performed at: WB Performed By: #### C BC #### [facility] [address] [place] [address] Dr. Kaushik Palomares Note: Comment [facility] Comment on above: Result Comment: The Pap smear is a screening test designed to aid in the detection of premalignant and malignant conditions of the uterine cervix. It is not a diagnostic procedure and should not be used as the sole means of detecting cervical cancer. Both false-positive and false-negative reports do occur. . Performed at: WB Performed By: #### C BC #### [facility] [address] [address] [address] Kaushik Palomares Performed by: Comment Normal [facility] Comment on above: Result Comment: Robi Graham, [employer] Architect (ASCP) Performed at: WB Performed By: #### C BC #### [facility] [address] [place] [address] Dr. Kaushik Palomares Specimen adequacy: Comment Normal [facility] Comment on above: Result Comment: Sati sfactory for evaluation. Endocervical and/or squamous metaplastic cells (endocervical component) are present. Performed at: WB Performed By: #### C BC #### [facility] [address] [place] [address] Dr. Kaushik Palomares COVID/FLU RT-PCRon 2 SARS-CoV-2 (COVID-19) RNA SURI+probe Ql (Unsp spec) Negative [employer] Other COVID/FLU RT-PCR Negative [employer] [facility] Schedule [employer] Other HCG-BETA SUBUNIT QUANTon hCG,Beta Subunit,Qnt,Serum <1 [facility] Comment on above: Result Comment: Fema le (Non-) 0 - 5 (Postmenopausal) 0 - 8 . Female () Weeks of Gestation 3 6 - 71 4 10 - 750 5 688 - 4948 6 126 - 82769 7 2841 -[id number] 8 76755 -[phone] 9 60385 -[phone] 10 92706 -585521 12 05601 -061855 14 79890 - 91426 15 88413 - 81034 16 6636 - 65161 17 9080 - 31632 18 3555 - 95221 Rg ECLIA methodology Performed By: #### H CGSUB #### [facility] [address] [place] [address] Dr. Kaushik Palomares T4 LABCORPon 01-22-2022 T4 [Mass/Vol] 7.8 ug/dL Normal 4.5-12.0 [facility] Comment on above: Performed By: #### T 4LC #### [facility] [address] [place] [address] Dr. Kaushik Palomares CBC AUTO DIFFon 01-21-2022 BASO # 0.1 103/ul Normal 0.0-0.1 [facility] Comment on above: Performed By: #### C BC #### [facility] [address] [place] [address] Dr. Kaushik Palomares Basophils/100 WBC (Bld) 0.6 % Normal 0.2-2.0 [facility] Comment on above: Performed By: #### C BC #### [facility] [address] [place] [address] Dr. Kaushik Palomares EO # 0.1 103/ul Normal 0.0-0.7 [facility] Comment on above: Performed By: #### C BC #### [facility] [address] [place] [address] Dr. Kaushik Palomares Eosinophils/100 WBC (Bld) 1.2 % Normal 0.9-7.0 [facility] Comment on above: Performed By: #### C BC #### [facility] [address] [place] [address] Dr. Kaushik Palomares Erythrocyte distribution width (RBC) [Ratio] 13.3 % Normal 11.0-15.0 [facility] Comment on above: Performed By: #### C BC #### [facility] [address] [place] [address] Dr. Kaushik Palomares Hematocrit (Bld) [Volume fraction] 40.0 % Normal 36.0-48.0 [facility] Comment on above: Performed By: #### C BC #### [facility] [address] [place] [address] Dr. Kaushik Palomares Hemoglobin (Bld) [Mass/Vol] 12.7 g/dL Normal 12.0-16.0 [facility] Comment on above: Performed By: #### C BC #### [facility] [address] [place] [address] Dr. Kaushik Palomares IG # 0.02 10e3/ul Normal 0.00-0.03 [facility] Comment on above: Performed By: #### C BC #### [facility] [address] [place] [address] Dr. Kaushik Palomares IG % 0.2 % Normal 0.0-0.5 [facility] Comment on above: Performed By: #### C BC #### [facility] [address] [place] [address] Dr. Kaushik Palomares LYMPH # 3.0 103/ul Normal 1.2-3.8 [facility] Comment on above: Performed By: #### C BC #### [facility] [address] [place] [address] Dr. Kaushik Palomares Lymphocytes/100 WBC (Bld) 32.9 % Normal 20.5-60.0 [facility] Comment on above: Performed By: #### C BC #### [facility] [address] [place] [address] Dr. Kaushik Palomares MANUAL DIFF REQ NO Normal [facility] Comment on above: Performed By: #### C BC #### [facility] [address] [place] [address] Dr. Kaushik Palomares MCH (RBC) [Entitic mass] 28.5 pg Normal 26.7-34.0 [facility] Comment on above: Performed By: #### C BC #### [facility] [address] [place] [address] Dr. Kaushik Palomares MCHC (RBC) [Mass/Vol] 31.8 g/dL Normal 29.9-35.2 [facility] Comment on above: Performed By: #### C BC #### [facility] [address] [place] [address] Dr. Kaushik Palomares MCV (RBC) [Entitic vol] 89.7 fL Normal 81.0-99.0 [facility] Comment on above: Performed By: #### C BC #### [facility] [address] [place] [address] Dr. Kaushik Palomares MONO # 0.5 103/ul Normal 0.3-0.8 [facility] Comment on above: Performed By: #### C BC #### [facility] [address] [place] [address] Dr. Kaushik Palomares Monocytes/100 WBC (Bld) 5.1 % Normal 1.7-12.0 [facility] Comment on above: Performed By: #### C BC #### [facility] [address] [place] [address] Dr. Kaushik Palomares NEUT # 5.4 103/ul Normal 1.4-6.5 [facility] Comment on above: Performed By: #### C BC #### [facility] [address] [place] [address] Dr. Kaushik Palomares Neutrophils/100 WBC (Bld) 60.0 % Normal 43.0-75.0 [facility] Comment on above: Performed By: #### C BC #### [facility] [address] [place] [address] Dr. Kaushik Palomares Platelet mean volume (Bld) [Entitic vol] 9.3 fL Critically low 9.5-13.5 [facility] Comment on above: Performed By: #### C BC #### [facility] [address] [place] [address] Dr. Kaushik Palomares PLT 221 103/ul Normal 150-450 [facility] Comment on above: Performed By: #### C BC #### [facility] [address] [place] [address] Dr. Kaushik Palomares RBC 4.46 106/ul Normal 4.20-5.40 [facility] Comment on above: Performed By: #### C BC #### [facility] [address] [place] [address] Dr. Kaushik Palomares WBC 9.0 103/ul Normal 4.0-11.0 [facility] Comment on above: Performed By: #### C BC #### [facility] [address] [address] [address] Kaushik Palomares GLYCOHEMOGLOBIN A1Con 2021 ADA RECOMMENDATION SEE BELOW Normal [facility] Comment on above: Result Comment: ADA RECOMMENDED LIMIT 4.0 - 6.0 ADA THERAPEUTIC TARGET < 7.0 ACTION SUGGESTED > 7.0 Performed By: #### C BC #### [facility] [address] [address] [address] Kaushik Palomares Glucose [Mass/Vol] 94 mg/dL Normal [facility] Comment on above: Performed By: #### C BC #### [facility] [address] [place] [address] Dr. Kaushik Palomares HbA1c (Bld) [Mass fraction] 4.9 % Normal 4.5-6.2 [facility] Comment on above: Performed By: #### C BC #### [facility] [address] [place] [address] Dr. Kaushik Palomares LIPID PROFILEon 01-21-2022 CHOL-HDL RATIO NORM SEE BELOW Normal [facility] Comment on above: Result Comment: 3.3 - 4.4 LOW RISK 4.4 - 7.1 AVERAGE RISK 7.1 - 11.0 MODERATE RISK >11.0 HIGH RISK Performed By: #### L IPID, CMP, TSH #### [facility] [address] [place] [address] Dr. Kaushik Palomares Cholesterol [Mass/Vol] 168 mg/dL Normal <=200 [facility] Comment on above: Performed By: #### L IPID, CMP, TSH #### [facility] [address] [address] [address] Kaushik Palomares Cholesterol in HDL [Mass/Vol] 41 mg/dL Normal 40-60 [facility] Comment on above: Performed By: #### L IPID, CMP, TSH #### [facility] [address] [address] [address] Kaushik Palomares Cholesterol in LDL [Mass/Vol] 90.2 mg/dL Normal [facility] Comment on above: Performed By: #### L IPID, CMP, TSH #### [facility] [address] [address] [address] Kaushik Palomares Cholesterol.total/Choles terol in HDL [Mass ratio] 4.1 {ratio} Normal [facility] Comment on above: Performed By: #### L IPID, CMP, TSH #### [facility] [address] [address] [address] Kaushik Palomares HDL NORMAL > or = 60 mg/dl - LOW CARDIOVASCULAR RISK <40 mg/dl - HIGH CARDIOVASCULAR RISK Normal [facility] Comment on above: Performed By: #### L IPID, CMP, TSH #### [facility] [address] [address] [address] Kaushik Palomares LDL CALC NORMAL SEE BELOW Normal [facility] Comment on above: Result Comment: <100 mg/dl OPTIMAL 100 - 129 mg/dl NEAR OR ABOVE OPTIMAL 130 - 159 mg/dl BORDERLINE HIGH 160 - 189 mg/dl HIGH >190 mg/dl VERY HIGH Performed By: #### L IPID, CMP, TSH #### [facility] [address] [address] [address] Kaushik Palomares Triglyceride [Mass/Vol] 184 mg/dL Critically high <=150 [facility] Comment on above: Performed By: #### L IPID, CMP, TSH #### [facility] [address] [address] [address] Kaushik Palomares VLDL CALC 36.8 mg/dL Normal [facility] Comment on above: Performed By: #### L IPID, CMP, TSH #### [facility] [address] [address] [address] Kaushik Palomares MICROALBUMIN, RAND URon -0 mALB 2.0 mg/L Normal <=30.0 [facility] Comment on above: Performed By: #### C BC #### [facility] [address] [address] [address] Kaushik Palomares PROF 14(COMP METB)on 022 Albumin [Mass/Vol] 3.7 g/dL Normal 3.4-5.0 [facility] Comment on above: Performed By: #### L IPID, CMP, TSH #### [facility] [address] [address] [address] Kaushik Palomares Albumin/Globulin [Mass ratio] 0.9 {ratio} Normal [facility] Comment on above: Performed By: #### L IPID, CMP, TSH #### [facility] [address] [address] [address] Kaushik Palomares ALP [Catalytic activity/Vol] 53 U/L Normal 46-116 [facility] Comment on above: Performed By: #### L IPID, CMP, TSH #### [facility] [address] [place] [address] Dr. Kaushik Palomares ALT [Catalytic activity/Vol] 44 U/L Normal 14-59 [facility] Comment on above: Performed By: #### L IPID, CMP, TSH #### [facility] [address] [address] [address] Kaushik Palomares Anion gap [Moles/Vol] 6.8 mmol/L Normal [facility] Comment on above: Performed By: #### L IPID, CMP, TSH #### [facility] [address] [place] [address] Dr. Kaushik Palomares AST [Catalytic activity/Vol] 22 U/L Normal 15-37 [facility] Comment on above: Performed By: #### L IPID, CMP, TSH #### [facility] [address] [address] [address] Kaushik Palomares Bilirubin [Mass/Vol] 0.3 mg/dL Normal 0.2-1.0 [facility] Comment on above: Performed By: #### L IPID, CMP, TSH #### [facility] [address] [place] [address] Dr. Kaushik Palomares Calcium [Mass/Vol] 9.2 mg/dL Normal 8.5-10.1 [facility] Comment on above: Performed By: #### L IPID, CMP, TSH #### [facility] [address] [place] [address] Dr. Kaushik Palomares Chloride [Moles/Vol] 102 mmol/L Normal 98-107 [facility] Comment on above: Performed By: #### L IPID, CMP, TSH #### [facility] [address] [address] [address] Kaushik Palomares CO2 [Moles/Vol] 31.4 mmol/L Normal 21.0-32.0 [facility] Comment on above: Performed By: #### L IPID, CMP, TSH #### [facility] [address] [address] [address] Kaushik Palomares Creatinine [Mass/Vol] 0.71 mg/dL Normal 0.55-1.02 [facility] Comment on above: Performed By: #### L IPID, CMP, TSH #### [facility] [address] [address] [address] Kaushik Palomares EGFR-AF [place] >60 Normal >=60 [facility] Comment on above: Performed By: #### L IPID, CMP, TSH #### [facility] [address] [address] [address] Kaushik Palomares EGFR-NON AF [place] >60 Normal >=60 [facility] Comment on above: Performed By: #### L IPID, CMP, TSH #### [facility] [address] [address] [address] Kaushik Palomares Globulin (S) [Mass/Vol] 4.2 g/dL Normal [facility] Comment on above: Performed By: #### L IPID, CMP, TSH #### [facility] [address] [address] [address] Kaushik Palomares Glucose [Mass/Vol] 93 mg/dL Normal 74-106 [facility] Comment on above: Performed By: #### L IPID, CMP, TSH #### [facility] [address] [address] [address] Kaushik Palomares Potassium [Moles/Vol] 4.2 mmol/L Normal 3.5-5.1 [facility] Comment on above: Performed By: #### L IPID, CMP, TSH #### [facility] [address] [address] [address] Kaushik Palomares Protein [Mass/Vol] 7.9 g/dL Normal 6.4-8.2 [facility] Comment on above: Performed By: #### L IPID, CMP, TSH #### [facility] [address] [address] [address] Kaushik Palomares Sodium [Moles/Vol] 136 mmol/L Normal 136-145 [facility] Comment on above: Performed By: #### L IPID, CMP, TSH #### [facility] [address] [place] [address] Dr. Kaushik Palomares Urea nitrogen [Mass/Vol] 11.0 mg/dL Normal 7.0-18.0 [facility] Comment on above: Performed By: #### L IPID, CMP, TSH #### [facility] [address] [place] [address] Dr. Kaushik Palomares Urea nitrogen/Creatinine [Mass ratio] 15.5 mg/mg Normal [facility] Comment on above: Performed By: #### L IPID, CMP, TSH #### [facility] [address] [place] [address] Dr. Kaushik Palomares TSHon 01-21-2022 TSH 1.298 uIU/mL Normal 0.358-3.740 [facility] Comment on above: Performed By: #### C BC #### [facility] [address] [place] [address] Dr. Kaushik Palomares TSH RANGE SEE BELOW Normal [facility] Comment on above: Result Comment: <0.3 4 UIU/ml HYPERTHYROID 0.34-5.60 UIU/ml EUTHYROID >5.60 UIU/ml HYPOTHYROID Performed By: #### C BC #### [facility] [address] [place] [address] Dr. Kaushik Palomares COVID Quick Testingon 2020 Result Negative [employer] Other Quick Strepon 06-17-2021 S. pyogenes Org specific cx Ql (Throat) Negative [employer] Other Quick Strep [employer] Other Urinalysis - AUTOMATEDon Appearance (U) cloudy [employer] Other Bilirubin Ql (U) Negative [employer] ast [employer] Other Color (U) yellow [employer] Other Glucose Ql (U) Negative [employer] Other Hemoglobin Ql (U) large [employer] Other Ketones Ql (U) Negative [employer] Other Leukocyte esterase Test strip Ql (U) trace [employer] Other Nitrite Ql (U) Positive [employer] Other pH (U) 5.5 [pH] [employer] Other Protein Ql (U) 100 [employer] Other Specific gravity (U) [Rel density] 1.025 [employer] Other Urobilinogen (U) [Mass/Vol] 0.2 mg/dL [employer] Other Urinalysis - AUTOMATED No rt [employer] Other Urine Cultureon 05-31-2021 Urine Culture >100,000 [employer] Other Urine Culture <16 [employer] Other Urine Culture >16 [employer] Other Urine Culture <4 [employer] Other Urine Culture 8 [employer] Other Urine Culture <2 [employer] Other Urine Culture <1 [employer] Other Urine Culture >2 [employer] Other Urine Culture <0.5 [employer] Other Urine Culture >8 [employer] Other Urine Culture >4 [employer] Other Urine Culture <32 [employer] Other Urine Culture >2/38 [employer] Other Vital Signs Date Time Vital Sign Value 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 06-21-2024 11:18-0500 Body height 162.56 cm ROSITA Marc Work Phone: [facility] 06-21-2024 11:18-0500 Body mass index (BMI) [Ratio] 57 kg/m2 ROSITA Marc Work Phone: [facility] 06-21-2024 11:18-0500 Body temperature 97.3 [degF] AUTOMATION ENGINEERING MANAGERBryon Marc Work Phone: [facility] 06-21-2024 11:18-0500 Body weight 150.81 kg AUTOMATION ENGINEERING MANAGERBryon Marc Work Phone: [facility] 06-21-2024 11:18-0500 Diastolic blood pressure 88 mm[Hg] ROSITA Marc Work Phone: [facility] 06-21-2024 11:18-0500 Heart rate 135 /min AUTOMATION ENGINEERING MANAGERBryon Marc Work Phone: [facility] [facility] 06-21-2024 11:18-0500 SaO2% (BldA) [Mass fraction] 94 % AUTOMATION ENGINEERING MANAGERBryon Marc Work Phone: [facility] 06-21-2024 11:18-0500 Systolic blood pressure 136 mm[Hg] ROSITA Marc Work Phone: [facility] 06-15-2024 09:29-0400 Body height 162.56 cm ROSITA Colladofer Charlyacher Work Phone: [facility] 06-15-2024 09:290400 Body mass index (BMI) [Ratio] 57.9 kg/m2 AUTOMATION ENGINEERING MANAGERBryon ThaoManisha Denyrbacher Work Phone: [facility] 06-15-2024 09:29-0400 Body temperature 97.5 [degF] AUTOMATION ENGINEERING MANAGERBryon ColladoManisha Charlyacher Work Phone: [facility] 06-15-2024 09:290400 Body weight 152.97 kg AUTOMATION ENGINEERING MANAGERBryon ColladoManisha Denyrbacher Work Phone: [facility] 06-15-2024 09:29-0400 Diastolic blood pressure 88 mm[Hg] AUTOMATION ENGINEERING MANAGERBryon Parksacher Work Phone: [facility] 06-15-2024 09:29-0400 Heart rate 103 /min AUTOMATION ENGINEERING MANAGERBryon ColladoManisha Charlyacher Work Phone: [facility] 06-15-2024 09:29-0400 Respiratory rate 18 /min AUTOMATION ENGINEERING MANAGERBryon ColladoManisha Charlyacher Work Phone: [facility] 06-15-2024 09:29-0400 SaO2% (BldA) [Mass fraction] 95 % AUTOMATION ENGINEERING MANAGERBryon ColladoManisha Charlyacher Work Phone: [facility] 06-15-2024 09:29-0400 Systolic blood pressure 128 mm[Hg] AUTOMATION ENGINEERING MANAGERBryon ColladoManisha Denyrbacher Work Phone: [facility] 04-21-2024 14:31-0400 Body height 162.56 cm AUTOMATION ENGINEERING MANAGERBryon Parksacher Work Phone: [facility] 04-21-2024 14:31-0400 Body mass index (BMI) [Ratio] 55 kg/m2 ROSITA Barclayrbacher Work Phone: [facility] 04-21-2024 14:31-0400 Body weight 145.6 kg ROSITA Thaonifer Denyrbacher Work Phone: [facility] 04-21-2024 14:31-0400 Diastolic blood pressure 88 mm[Hg] AUTOMATION ENGINEERING MANAGER Manisha Denyrbacher Work Phone: [facility] 04-21-2024 14:31-0400 Heart rate 111 /min AUTOMATION ENGINEERING MANAGER Manisha Denyrbacher Work Phone: [facility] 04-21-2024 14:31-0400 SaO2% (BldA) [Mass fraction] 97 % AUTOMATION ENGINEERING MANAGER Manisha Denyrbacher Work Phone: [facility] 04-21-2024 14:31-0400 Systolic blood pressure 136 mm[Hg] AUTOMATION ENGINEERING MANAGER Manisha Denyrbacher Work Phone: [facility] 11-26-2023 08:40-0400 Body height 162.56 cm AUTOMATION ENGINEERING MANAGERBryon ThaoManisha Charlyacher Work Phone: [facility] 11-26-2023 08:40-0400 Body mass index (BMI) [Ratio] 52.9 kg/m2 AUTOMATION ENGINEERING MANAGER Manisha Denyeliudacher Work Phone: [facility] 11-26-2023 08:40-0400 Body weight 139.79 kg AUTOMATION ENGINEERING MANAGER Manisha Barclayrbacher Work Phone: [facility] 11-26-2023 08:40-0400 Diastolic blood pressure 79 mm[Hg] AUTOMATION ENGINEERING MANAGER Manisha Denyrbacher Work Phone: [facility] 11-26-2023 08:40-0400 Heart rate 97 /min AUTOMATION ENGINEERING MANAGER Manisha Denyrbacher Work Phone: [facility] 11-26-2023 08:40-0400 SaO2% (BldA) [Mass fraction] 99 % AUTOMATION ENGINEERING MANAGER Manisha Denyrbacher Work Phone: [facility] 11-26-2023 08:40-0400 Systolic blood pressure 131 mm[Hg] AUTOMATION ENGINEERING MANAGER Manisha Denyrbacher Work Phone: [facility] 11-03-2023 14:06-0400 Body height 162.56 cm AUTOMATION ENGINEERING MANAGER Manisha Denyrbacher Work Phone: [facility] 11-03-2023 14:06-0400 Body mass index (BMI) [Ratio] 53.1 kg/m2 AUTOMATION ENGINEERING MANAGER Manisha Denyrbacher Work Phone: [facility] 11-03-2023 14:06-0400 Body weight 140.61 kg AUTOMATION ENGINEERING MANAGER Manisha Denyrbacher Work Phone: [facility] 11-03-2023 14:06-0400 Diastolic blood pressure 78 mm[Hg] AUTOMATION ENGINEERING MANAGER Manisha Denyrbacher Work Phone: [facility] 11-03-2023 14:06-0400 Heart rate 105 /min AUTOMATION ENGINEERING MANAGER Manisha Denyeliudacher Work Phone: [facility] 11-03-2023 14:06-0400 SaO2% (BldA) [Mass fraction] 98 % AUTOMATION ENGINEERING MANAGER Manisha Parksacher Work Phone: [facility] 11-03-2023 14:06-0400 Systolic blood pressure 118 mm[Hg] AUTOMATION ENGINEERING MANAGER Manisha Denyrbacher Work Phone: [facility] 10-08-2023 10:50-0500 Body height 162.56 cm AUTOMATION ENGINEERING MANAGER Manisha Denyrbacher Work Phone: [facility] 10-08-2023 10:50-0500 Body weight 139.25 kg AUTOMATION ENGINEERING MANAGER Manisha Denyrbacher Work Phone: [facility] 10-01-2023 09:20-0500 Body height 162.56 cm AUTOMATION ENGINEERING MANAGER Manisha Denyrbacher Work Phone: [facility] 10-01-2023 09:20-0500 Body mass index (BMI) [Ratio] 53.6 kg/m2 AUTOMATION ENGINEERING MANAGERBryon ThaoManisha Denyrbacher Work Phone: [facility] 10-01-2023 09:20-0500 Body weight 141.69 kg AUTOMATION ENGINEERING MANAGERBryon ThaoManisha Denyrbacher Work Phone: [facility] 10-01-2023 09:20-0500 Diastolic blood pressure 75 mm[Hg] AUTOMATION ENGINEERING MANAGERBryon ColladoManisha Denyrbacher Work Phone: [facility] 10-01-2023 09:20-0500 Heart rate 85 /min AUTOMATION ENGINEERING MANAGERBryon ThaoManisha Denyrbacher Work Phone: [facility] 10-01-2023 09:20-0500 Respiratory rate 18 /min AUTOMATION ENGINEERING MANAGERBryon ColladoManisha Denyrbacher Work Phone: [facility] 10-01-2023 09:20-0500 SaO2% (BldA) [Mass fraction] 99 % AUTOMATION ENGINEERING MANAGERBryon ThaoManisha Denyrbacher Work Phone: [facility] 10-01-2023 09:20-0500 Systolic blood pressure 123 mm[Hg] AUTOMATION ENGINEERING MANAGERBryon ColladoManisha Denyrbacher Work Phone: [facility] 09-03-2023 08:00-0500 Body height 162.56 cm ROSITA Colladofer Denyrbacher Work Phone: [facility] 09-03-2023 08:00-0500 Body weight 138.79 kg AUTOMATION ENGINEERING MANAGERBryon ColladoManisha Denyrbacher Work Phone: [facility] 09-03-2023 08:00-0500 Diastolic blood pressure 78 mm[Hg] AUTOMATION ENGINEERING MANAGERBryon Barclayrbacher Work Phone: [facility] 09-03-2023 08:00-0500 Systolic blood pressure 118 mm[Hg] ROSITA Barclayrbacher Work Phone: [facility] 08-19-2023 09:45-0500 Body height 162.56 cm Nely Cruz Other [facility] 08-13-2023 14:00-0500 Body height 162.56 cm Manisha Tair Other [facility] 08-13-2023 14:00-0500 Body mass index (BMI) [Ratio] 52.35 kg/m2 Manisha Tari Other [employer] Other 08-13-2023 14:00-0500 Body weight 138.35 kg Manisha Tari Other [employer] Other 08-13-2023 14:00-0500 Body weight 138.34 kg AUTOMATION ENGINEERING MANAGER Manisha Tari Work Phone: [facility] 08-13-2023 14:00-0500 Diastolic blood pressure 80 mm[Hg] Manisha Marc Other [facility] 08-13-2023 14:00-0500 SaO2% (BldA) [Mass fraction] 98 % Manisha Marc Other [employer] Other 08-13-2023 14:00-0500 Systolic blood pressure 114 mm[Hg] Manisha Marc Other [facility] 07-15-2023 07:45-0500 Body height 162.56 cm Celio Mullins Other [facility] 07-15-2023 07:45-0500 Body mass index (BMI) [Ratio] 52.98 kg/m2 Celio Mullins Other [employer] Other 07-15-2023 07:45-0500 Body weight 140.03 kg Celio Mullins Other [employer] Other 11-28-2023 07:45-0500 Body weight 140.02 kg ROSITA Marc Work Phone: [facility] 07-15-2023 07:45-0500 Diastolic blood pressure 66 mm[Hg] Celio Mullins Other [facility] 07-15-2023 07:45-0500 Respiratory rate 18 /min Celio Mullins Other [facility] [employer] Other 07-15-2023 07:45-0500 SaO2% (BldA) [Mass fraction] 98 % Celio Mullins Other [facility] [employer] Other 07-15-2023 07:45-0500 Systolic blood pressure 112 mm[Hg] Celio Mullins Other [facility] 07-07-2023 11:15-0500 Body height 162.56 cm Michelle Haynesmond Other [facility] 07-07-2023 11:15-0500 Body mass index (BMI) [Ratio] 52.69 kg/m2 Michelle Oma Other [employer] Other 07-07-2023 11:15-0500 Body temperature 98 [degF] Michelle Haynesmond Other [employer] [facility] [employer] Other 07-07-2023 11:15-0500 Body weight 139.26 kg Michelle Haynesmond Other [employer] Other 07-07-2023 11:15-0500 Body weight 139.25 kg ROSITA Marc Work Phone: [facility] 07-07-2023 11:15-0500 Respiratory rate 20 /min Michelle Oma Other [employer] Other 07-07-2023 11:15-0500 SaO2% (BldA) [Mass fraction] 98 % Michelle Ernandez Other [employer] Other 06-29-2023 10:20-0500 Body height 162.56 cm Michelle Ernandez Other [employer] Other 06-29-2023 10:20-0500 Body mass index (BMI) [Ratio] 53.03 kg/m2 Michelle Ernandez Other [employer] Other 06-29-2023 10:20-0500 Body temperature 99.7 [degF] Michelle Ernandez Other [employer] Other 06-29-2023 10:20-0500 Body weight 140.16 kg Michelle Ernandez Other [employer] Other 06-29-2023 10:20-0500 Respiratory rate 19 /min Michelle Ernandez Other [employer] Other 06-29-2023 10:20-0500 SaO2% (BldA) [Mass fraction] 98 % Michelle Ernandez Other [employer] Other 06-11-2023 15:30-0400 Body height 162.56 cm Manisha Marc Other [employer] Other 06-11-2023 15:30-0400 Body mass index (BMI) [Ratio] 53.79 kg/m2 Manisha Marc Other [employer] Other 06-11-2023 15:30-0400 Body weight 142.16 kg Manisha Marc Other [employer] Other 06-11-2023 15:30-0400 Diastolic blood pressure 62 mm[Hg] Manisha Tari Other [employer] Other 06-11-2023 15:30-0400 SaO2% (BldA) [Mass fraction] 99 % Manisha Tari Other [employer] Other 06-11-2023 15:30-0400 Systolic blood pressure 126 mm[Hg] Manisha Tari Other [employer] Other 05-06-2023 13:40-0400 Body height 162.56 cm Casandra Hassan Other [employer] Other 05-06-2023 13:40-0400 Body mass index (BMI) [Ratio] 53.65 kg/m2 Casandra Hassan Other [employer] Other 05-06-2023 13:40-0400 Body temperature 98.4 [degF] Casandra Hassan Other [employer] Other 05-06-2023 13:40-0400 Body weight 141.8 kg Casandra Hassan Other [employer] Other 05-06-2023 13:40-0400 Diastolic blood pressure 81 mm[Hg] Casandra Hassan Other [employer] Other 05-06-2023 13:40-0400 Respiratory rate 18 /min Casandra Hassan Other [employer] Other 05-06-2023 13:40-0400 SaO2% (BldA) [Mass fraction] 95 % Casandra Sonya Other [employer] Other 05-06-2023 13:40-0400 Systolic blood pressure 134 mm[Hg] Casandra Sonya Other [employer] Other 04-30-2023 08:30-0400 Body height 162.56 cm Manisha Marc Other [employer] Other 04-30-2023 08:30-0400 Body mass index (BMI) [Ratio] 53.86 kg/m2 Manisha Marc Other [employer] Other 04-30-2023 08:30-0400 Body weight 142.34 kg Manisha Marc Other [employer] Other 04-30-2023 08:30-0400 Diastolic blood pressure 82 mm[Hg] Manisha Marc Other [employer] Other 04-30-2023 08:30-0400 SaO2% (BldA) [Mass fraction] 100 % Manisha Marc Other [employer] Other 04-30-2023 08:30-0400 Systolic blood pressure 120 mm[Hg] Manisha Marc Other [employer] Other 04-29-2023 07:00-0400 Body height 162.56 cm Nely Fitt Other [employer] Other 04-29-2023 07:00-0400 Body mass index (BMI) [Ratio] 54.41 kg/m2 Nely Fitt Other [employer] Other 04-29-2023 07:00-0400 Body weight 143.79 kg Nely Cruz Other [employer] Other 03-25-2023 13:45-0400 Body height 162.56 cm Celio Mullins Other [employer] Other 03-25-2023 13:45-0400 Body mass index (BMI) [Ratio] 55.45 kg/m2 Celio CrowdClock Other [employer] Other 03-25-2023 13:45-0400 Body weight 146.56 kg Celio Mullins Other [employer] Other 03-25-2023 13:45-0400 Diastolic blood pressure 57 mm[Hg] Celio Mullins Other [employer] Other 03-25-2023 13:45-0400 Respiratory rate 18 /min Celio [employer] Other [employer] Other 03-25-2023 13:45-0400 SaO2% (BldA) [Mass fraction] 97 % Celio Mullins Other [employer] Other 03-25-2023 13:45-0400 Systolic blood pressure 106 mm[Hg] Celio Mullins Other [employer] Other 02-11-2023 12:15-0400 Body height 163.83 cm Casandra Hassan Other [employer] Other 02-11-2023 12:15-0400 Body mass index (BMI) [Ratio] 54.88 kg/m2 Casandra Hassan Other [employer] Other 02-11-2023 12:15-0400 Body temperature 98 [degF] Casandra Tesfayeley Other [employer] Other 02-11-2023 12:15-0400 Body weight 147.33 kg Casandra Tesfayeley Other [employer] Other 02-11-2023 12:15-0400 Diastolic blood pressure 85 mm[Hg] Casandra Tesfayeley Other [employer] Other 02-11-2023 12:15-0400 Respiratory rate 18 /min Casandra Tesfayeley Other [employer] Other 02-11-2023 12:15-0400 SaO2% (BldA) [Mass fraction] 98 % Casandra Tesfayeley Other [employer] Other 02-11-2023 12:15-0400 Systolic blood pressure 128 mm[Hg] Casandra Sonya Other [employer] Other 07-13-2022 11:15-0500 Body height 163.83 cm Michelle Oma Other [employer] Other 07-13-2022 11:15-0500 Body mass index (BMI) [Ratio] 51.54 kg/m2 Michelle Oma Other [employer] Other 07-13-2022 11:15-0500 Body temperature 96.6 [degF] Michelle Oma Other [employer] Other 07-13-2022 11:15-0500 Body weight 138.35 kg Michelle Oma Other [employer] Other 07-13-2022 11:15-0500 Respiratory rate 18 /min Michelle Ernandez Other [employer] Other 07-13-2022 11:15-0500 SaO2% (BldA) [Mass fraction] 96 % Michelle Oma Other [employer] Other 07-06-2021 13:00-0500 Body height 163.83 cm Michelle Oma Other [employer] Other 07-06-2021 13:00-0500 Body mass index (BMI) [Ratio] 49 kg/m2 Michelle Oma Other [employer] Other 07-06-2021 13:00-0500 Body temperature 97.5 [degF] Michelle Oma Other [employer] Other 07-06-2021 13:00-0500 Body weight 131.54 kg Michelle Oma Other [employer] Other 07-06-2021 13:00-0500 SaO2% (BldA) [Mass fraction] 96 % Michelle Oma Other [employer] Other 06-17-2021 11:00-0400 Body height 163.83 cm Michelle Oma Other [employer] Other 06-17-2021 11:00-0400 Body mass index (BMI) [Ratio] 49.68 kg/m2 Michelle Oma Other [employer] Other 06-17-2021 11:00-0400 Body temperature 98.3 [degF] Michelle Oma Other [employer] Other 06-17-2021 11:00-0400 Body weight 133.36 kg Michelle Oma Other [employer] Other 06-17-2021 11:00-0400 Respiratory rate 18 /min Michelle Moa Other [employer] Other 06-17-2021 11:00-0400 SaO2% (BldA) [Mass fraction] 96 % Michelle Oma Other [employer] Other 05-31-2021 13:50-0400 Body height 163.83 cm Michelle Haynesmond Other [employer] Other 05-31-2021 13:50-0400 Body mass index (BMI) [Ratio] 50.36 kg/m2 Michelle Haynesmond Other [employer] Other 05-31-2021 13:50-0400 Body temperature 97.8 [degF] Michelle Oma Other [employer] Other 05-31-2021 13:50-0400 Body weight 135.17 kg Michelle Oma Other [employer] Other 05-31-2021 13:50-0400 Diastolic blood pressure 90 mm[Hg] Michelle Oma Other [employer] Other 05-31-2021 13:50-0400 Respiratory rate 18 /min Michelle Oma Other [employer] Other 05-31-2021 13:50-0400 SaO2% (BldA) [Mass fraction] 98 % Michelle Ernandez Other [facility] [employer] Other 05-31-2021 13:50-0400 Systolic blood pressure 150 mm[Hg] Michelle Ernandez Other [facility] [employer] Other Encounters Encounter Date Encounter Type Care Provider Facility Start: 06-21-2024 End: 06-21-2024 ambulatory ROSITA Marc Work Phone: [facility] Work Phone: Start: 06-21-2024 End: 06-21-2024 Patient encounter procedure ROSITA Marc Work Phone: [facility] Work Phone: Start: 06-18-2024 Non-patient / Non-visit ROSITA Marc Work Phone: [facility] Work Phone: Start: 06-15-2024 End: 06-15-2024 Departed Referred ROSITA Marc Work Phone: [facility] [place] Work Phone: Start: 06-15-2024 End: 06-15-2024 ambulatory ROSITA Marc Work Phone: [facility] Work Phone: Start: 06-15-2024 End: 06-15-2024 Patient encounter procedure ROSITA Marc Work Phone: [facility] Work Phone: Start: 06-07-2024 Non-patient / Non-visit ROSITA Marc Work Phone: [facility] [employer] Work Phone: Start: 05-13-2024 ambulatory Edward Richey acility:[facility] Start: 05-13-2024 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 Marc Work Phone: [facility] [employer] Start: 04-21-2024 End: 04-21-2024 ambulatory ROSITA Thaonifer Tari Work Phone: [facility] Work Phone: Start: 04-21-2024 End: 04-21-2024 Patient encounter procedure ROSITA Marc Work Phone: [facility] Work Phone: Start: 04-15-2024 Non-patient / Non-visit ROSITA Marc Work Phone: [facility] Work Phone: Start: 04-12-2024 Non-patient / Non-visit AUTOMATION ENGINEERING MANAGERBryon ColladoManisha Tari Work Phone: [facility] [employer] Work Phone: Start: 04-03-2024 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 Laylabryon Marc Work Phone: [facility] [employer] Start: 03-16-2024 End: 03-16-2024 ambulatory MELA ANDERSON Not Available Start: 01-19-2024 End: 01-19-2024 ambulatory Bud Combs MD Facility:[facility] Start: 01-01-2024 Registered Recurring ROSITA Marc Work Phone: [facility] [employer] Start: 11-26-2023 End: 11-26-2023 ambulatory ROSITA Marc Work Phone: [facility] Work Phone: Start: 11-26-2023 End: 11-26-2023 Patient encounter procedure AUTOMATION ENGINEERING MANAGERBryon Dyer Tari Work Phone: [facility] Work Phone: Start: 11-03-2023 End: 11-03-2023 ambulatory AUTOMATION ENGINEERING MANAGERBryon Deyr Tari Work Phone: [facility] Work Phone: Start: 11-03-2023 End: 11-03-2023 Patient encounter procedure AUTOMATION ENGINEERING MANAGERBryon Dyer Tari Work Phone: [facility] Work Phone: Start: 11-03-2023 End: 11-03-2023 ambulatory TOBIASDaniela OSCAR Not Available Start: 10-30-2023 Non-patient / Non-visit AUTOMATION ENGINEERING MANAGERBryon Dyer Tari Work Phone: [facility] Work Phone: Start: 10-08-2023 End: 10-08-2023 Patient encounter procedure AUTOMATION ENGINEERING MANAGERBryon Dyer Tari Work Phone: [facility] [place] Work Phone: Start: 10-08-2023 End: 10-08-2023 ambulatory ROSITA Dyer Tari Work Phone: [facility] Work Phone: Start: 10-06-2023 Non-patient / Non-visit AUTOMATION ENGINEERING MANAGER Manisha Tari Work Phone: [facility] [employer] Work Phone: Start: 10-06-2023 End: 10-06-2023 ambulatory Bud Combs MD Facility: [facility] Start: 10-01-2023 End: 10-01-2023 Patient encounter procedure AUTOMATION ENGINEERING MANAGER Manisha Tari Work Phone: [facility] Work Phone: Start: 10-01-2023 End: 10-01-2023 ambulatory AUTOMATION ENGINEERING MANAGER Manisha Tari Work Phone: [facility] Work Phone: Start: 09-10-2023 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Bryon castrosudheer Marc Work Phone: [facility] [employer] Start: 09-08-2023 End: 09-08-2023 ambulatory Bud Combs MD Facility:[facility] Start: 09-03-2023 End: 09-03-2023 Patient encounter procedure ROSITA Manishaamita Marc Work Phone: [facility]- Start: 08-19-2023 IBT FOR OBESITY GROU P 2-10 30M Nely Cruz [facility] Start: 08-19-2023 End: 08-19-2023 ambulatory Manisha Marc [employer] Other Start: 08-19-2023 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 Layla gloriasudheer Marc Work Phone: [facility] Work Phone: Start: 08-19-2023 End: 08-19-2023 Patient encounter procedure ROSITA Manisha Tari Work Phone: [facility] Work Phone: Start: 08-14-2023 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 Laylabryon Marc Work Phone: [facility] [employer] Start: 08-13-2023 End: 08-13-2023 ambulatory Manisha Marc Other [employer] Other Start: 08-13-2023 Office outpatient visit 15 minutes Manisha Marc [facility] Start: 08-13-2023 End: 08-13-2023 Patient encounter procedure ROSITA Thaoniamita Marc Work Phone: [facility] Work Phone: Start: 07-24-2023 End: 07-24-2023 ambulatory MELA ANDERSON Not Available Start: 07-21-2023 End: 07-21-2023 ambulatory Bud Combs MD Facility:[facility] Start: 07-19-2023 End: 07-19-2023 ambulatory ROSITA Marc Work Phone: [facility] Work Phone: Start: 07-19-2023 End: 07-19-2023 Patient encounter procedure ROSITA Marc Work Phone: [facility] Start: 07-15-2023 End: 07-15-2023 ambulatory Celio Mullins Other [employer] Other Start: 07-15-2023 Follow-up encounter Celio Mullins [facility] Start: 07-15-2023 End: 07-15-2023 Patient encounter procedure ROSITA Marc Work Phone: [facility] Work Phone: Start: 07-07-2023 End: 07-07-2023 ambulatory Michelle Ernandez Other [employer] Other Start: 07-07-2023 Office outpatient visit 15 minutes Michelle Ernandez [facility] Start: 07-07-2023 End: 07-07-2023 Patient encounter procedure ROSITA Marc Work Phone: [facility] Work Phone: Start: 07-03-2023 Registered Recurring ROSITA Marc Work Phone: [facility] [employer] Start: 07-03-2023 End: 07-03-2023 Patient encounter procedure ROSITA Marc Work Phone: [facility] [place] Work Phone: Start: 07-03-2023 End: 07-03-2023 ambulatory ROSITA Marc Work Phone: [facility] Work Phone: Start: 07-01-2023 End: 07-01-2023 Patient encounter procedure AUTOMATION ENGINEERING MANAGER Manisha Marc Work Phone: [facility] [place] Work Phone: Start: 07-01-2023 End: 07-01-2023 ambulatory Celio Mullins Facility:[facility] Start: 06-29-2023 End: 06-29-2023 ambulatory Michelle Ernandez Other [employer] Other Start: 06-29-2023 Office outpatient visit 15 minutes Michelle Ernandez [facility] Start: 06-17-2023 Registered Recurring ROSITA Marc Work Phone: [facility] Work Phone: Start: 06-11-2023 End: 06-11-2023 ambulatory Manisha Marc Other [employer] Other Start: 06-11-2023 Office outpatient visit 25 minutes Manisha Marc [facility] Start: 05-06-2023 End: 05-06-2023 ambulatory Casandra Hassan Other [employer] Other Start: 05-06-2023 Office outpatient visit 10 minutes Casandra Hassan [facility] Start: 05-01-2023 End: 05-01-2023 ambulatory Manisha Marc Other [employer] Other Start: 05-01-2023 Telephone encounter Manisha Rico her [facility] Start: 04-30-2023 End: 04-30-2023 ambulatory Manisha Parksmarycarmentad Other [employer] Other Start: 04-30-2023 Encounter for genera l adult medical examination without abnormal findings Manisha Marc [facility] Start: 04-30-2023 Periodic preventive med est patient 18-39 yrs Manisha Barclayaustintad [facility] Start: 04-29-2023 ([facility]) [facility] Initial Provider Nely Cruz [facility] Start: 04-29-2023 End: 04-29-2023 ambulatory Nely Cruz Other [employer] Other Start: 03-25-2023 End: 03-25-2023 ambulatory Celiomary Mullins Other [employer] Other Start: 03-25-2023 Nutrition therapy [facility] Mullins [facility] Start: 03-25-2023 Telephone encounter Celio Mullins [facility] [facility] Start: 03-14-2023 End: 03-14-2023 ambulatory Nely Cruz Other [employer] Other Start: 03-14-2023 Telephone encounter Nely Cruz [facility] Start: 02-11-2023 End: 02-11-2023 ambulatory Casandra Hassan Other [facility] Other Start: 02-11-2023 Office outpatient visit 15 minutes Casandra Hassan [facility] Start: 12-31-2022 End: 01-01-[address] TOBIAS OSCAR . Facility:[facility] Start: 11-26-2022 End: 11-27-[address] TOBIAS OSCAR . Facility:[facility] Start: 11-08-2022 End: 11-09-[address] BOOM ROD Facility:[facility] Start: 10-28-2022 End: 10-28-[address] TOBIAS OSCAR . Facility:[facility] Start: 07-13-2022 End: 07-13-2022 ambulatory Michelle Oma Other [facility] Other Start: 07-13-2022 Office outpatient visit 15 minutes Michelle Oma [facility] Start: 03-07-2022 End: 03-08-[address] BOOM ROD Facility:[facility] Start: 01-25-2022 Encounter for genera l adult medical examination without abnormal findings DR BOOM ROD [facility] Start: 01-21-2022 End: 01-22-[address] BOOM ROD Facility:[facility] Start: 01-21-2022 End: 01-22-2022 Encounter for general adult medical examination without abnormal findings DR BOOM ROD Facility:[facility] Start: 07-06-2021 End: 07-06-2021 ambulatory Michelle Oma Other [facility] Other Start: 07-06-2021 Office outpatient visit 15 minutes Michelle Oma [facility] Start: 06-17-2021 Office outpatient visit 15 minutes Michelle Oma [facility] Start: 05-31-2021 Office outpatient visit 25 minutes Michelle Oma [facility] Start: 08-27-2018 End: 08-27-2018 ambulatory BRENT KINNEY Facility:[facility] Procedures Date Procedure Procedure Detail Performing Clinician Start: 06-15-2024 Bacteria identified in Urine by Culture ROSITA Marc Work Phone: Start: 10-08-2023 MRI of head ROSITA Marc Work Phone: Start: 05-31-2021 Piperacillin/tazobactam Michelle Oma Other Start: 08-27-2018 extraction, erupted tooth or exposed root (elevation and/or forceps removal) BRENT KINNEY Start: 08-27-2018 removal of impacted tooth - soft tissue BRENT TROCONIS Start: 08-27-2018 Urine test visual color cmprsn meths BRENT TROCONTARAH Plan of Treatment Date Care Activity Detail Author Start: 06-21-2024 Patient referral [facility] Work Phone: Start: 06-15-2024 Bacteria identified in Urine by Culture Urine Culture [facility] Start: 06-15-2024 [facility] Start: 06-15-2024 Urine culture [facility] Chlamydia trachomati s DNA [Presence] in Unspecified specimen by SURI with probe detection [facility] Comprehensive metabo lic 2000 panel - Serum or Plasma [facility] Holter monitor study [facility] MR Unspecified body region F [facility] Neisseria gonorrhoea e DNA [Presence] in Unspecified specimen by SURI with probe detection [facility] Patient referral [facility] Work Phone: Trichomonas vaginali s DNA [Presence] in Unspecified specimen by SURI with probe detection [facility] Immunizations Immunization Date Immunization Notes Care Provider Fa ken 03-03-2021 Do not use COVID-19 Pfizer 2 dose Manisha Rohrbacher Other [facility] 02-10-2021 Do not use COVID-19 Pfizer 2 dose Manisha Rohrbacher Other [facility] 08-03-2018 Toradol per 15 mg Michelle Dym ond Other [employer] Other Payers Date Payer Category Payer Self-pay [id number] 2022 Self-pay [id number] 2022 Private Health Insurance 1991 Unknown [id number] 2.840.1.912871.3.579.2. 732 1991 Unknown [id number] 2.840.1.513705.3.579.2. 593 1991 Unknown [id number] 2.16.840.1.281843.3.579.2. 593 1991 Unknown [id number] 2.16.840.1.820500.3.579.2. 593 1991 Unknown [id number] 2.16.840.1.665776.3.579.2. 593 1991 Unknown [id number] 2.16.840.1.535442.3.579.2. 593 1991 Unknown [id number] 2.16.840.1.703120.3.579.2. 593 1991 Unknown [id number] 2.16.840.1.471325.3.579.2. 196 1991 Unknown [id number] 2.16.840.1.318760.3.579.2. 196 1991 Unknown [id number] 2.16.840.1.278379.3.579.2. 196 1991 Unknown [id number] 2.16.840.1.977438.3.579.2. 196 1991 Unknown [id number] 2.16.840.1.069513.3.579.2. 9 1991 Unknown [id number] 2.16.840.1.095776.3.579.2. 1259 1991 Unknown [id number] 2.16.840.1.946077.3.579.2. 1259 1959 Medicaid [id number] 1959 Unknown [id number] Unknown [facility] [id number] Unknown [id number] 2.16.840.1.720193.3.579.2. 531 Unknown [id number] 2.16.840.1.615592.3.579.2. 531 Unknown [id number] 2.16.840.1.930090.3.579.2. 531 Unknown [id number] 2.16.840.1.535789.3.579.2. 531 Unknown [id number] 2.16.840.1.046206.3.579.2. 531 Unknown [id number] 2.16.840.1.074849.3.579.2. 531 Unknown [id number] 2.16.840.1.794913.3.579.2. 531 Unknown [id number] 2.16.840.1.215065.3.579.2. 531 Social History Date Type Detail Facility Unknown if ever smoked [facility] Other Sex Assigned At Sex Assigned At Bir th [facility] Other Start: 12-07-2021 End: 11-26-2023 Tobacco smoking status NHIS Never smoked tobacco (finding) [facility] Start: 1990 Sex Assigned At Female F [facility] Clinical Notes 05-31-2021 to 08-19-2023 Note [...] grocery shortcuts [facility] [employer] Other 12-27-2023 Evaluation note* Encounter Date Diagnosis [...] You have been given relevant education handouts. [facility] Other 11-28-2023 Evaluation note* Encounter Date Diagnosis [...] voice recognition software. Please excuse errors in candy roller. Jun, Dietary surveillance and counseling (ICD-10 - [...] metformin 1000 mg total daily, managed by [facility] Jun, Asthma (ICD-10 - J45.909) Jun, Migraine (ICD-10 - G43.909) Jun, Primary hypertension (ICD-10 - I10) Currently on pharmacotherapy Potential for overtreatment given lightheadedness Jun, Other An additional 9 minutes was spent counseling the patient on behavior modification including proper nutrition and physical activity. [employer] Other 11-20-2023 Evaluation note* Encounter Date Diagnosis [...] until you feel better. You may take lkmt-han-hyxanal Imodium for diarrhea as needed. Avoid dairy foods as well as greasy fried foods. Follow-up with your physician if no improvement in 2 to 3 days. May return to work on Jun, Diarrhea, unspecified type (ICD-10 - R19.7) Diarrhea: adult home care material was printed [employer] Other 11-12-2023 Evaluation note* Encounter Date Diagnosis [...] to 3-day Jun, Bronchitis (ICD-10 - J40) [facility] Other 10-25-2023 Evaluation note* Encounter Date Diagnosis Assessment Notes Treatment Notes Treatment Clinical Notes May, Degenerative lumbar disc (ICD-10 - M51.36) L4-5 Pt would like a referral to pain management regarding her chronic back pain. Her last x-ray of the lumbar spine was completed 10/2022 at [facility]--reviewed and in scanned documents. Referral [...] (ICD-10 - F31.81) Referral placed to [facility] for medication mangement. [facility] Other 09-19-2023 Evaluation note* Encounter Date Diagnosis Assessment Notes Treatment Notes Treatment Clinical Notes Apr, Exposure to head lice (ICD-10 - Z20.7) Discussed with patient exam is without any signs of current lice infection. May return to work tomorrow. Patient completed next treatment yesterday. Patient verbalized understanding. [facility] Other 09-14-2023 Evaluation note* Encounter Date Diagnosis Assessment Notes Treatment Notes Treatment Clinical Notes Apr, Primary hypertension (ICD-10 - I10) [facility] Other 09-13-2023 Evaluation note* Encounter Date Diagnosis [...] (ICD-10 - R73.01) Will obtain records from [facility] for most recent labs. Patient [...] Low back pain, unspecified (ICD-10 - M54.50) [employer] Other 09-12-2023 Evaluation note* Encounter Date Diagnosis [...] 2) Aim for < 45 g carb/meal [employer] Other 08-08-2023 Evaluation note* Encounter Date Diagnosis [...] voice recognition software. Please excuse errors in candy roller. Mar, Dietary surveillance and counseling (ICD-10 - [...] as sweet tea, replace ice cream with Mohawk yogurt, use protein shake in the a.m. [...] with the patient, and documenting clinical information. [facility] Other 06-27-2023 Evaluation note* Encounter Date Diagnosis [...] 7 days, sooner if significantly worsening symptoms. [employer] Other 11-26-2022 Evaluation note* Encounter Date Diagnosis [...] 3 days. Off work today and tomorrow [employer] Other 11-19-2021 Evaluation note* Encounter Date Diagnosis [...] writting by [facility] Care At Home document. [employer] Other 10-31-2021 Evaluation note* Encounter Date Diagnosis [...] Patient care instructions given in writting by [facility] Care At Home document. [facility] [employer] Other 10-14-2021 Evaluation note* Encounter Date Diagnosis Assessment Notes Treatment Notes Treatment Clinical Notes May, Dysuria (ICD-10 - R30.0) May, Urinary tract infection, site not specified (ICD-10 - N39.0) May, Hematuria, unspecified (ICD-10 - R31.9) [facility] [employer] Other [facility] Other evaluation noteNo assessment information available [facility] Work Phone: evaluation note* Diagnosis Onset Date Resolution Status Dietary surveillance and counseling acute Exercise counseling acute Food insecurity acute PCOS (polycystic ovarian syndrome) acute Prediabetes acute Severe obesity (BMI >= 40) a [facility] Work Phone: evaluation note* Diagnosis Onset Date Resolution Status Dietary surveillance and counseling acute Exercise counseling acute Food insecurity acute PCOS (polycystic ovarian syndrome) acute Prediabetes acute Severe obesity (BMI >= 40) a [facility] Lightheadedness acute Menorrhagia acute Palpitations acute [facility] Work Phone: evaluation note* Diagnosis Onset Date Resolution Status Dietary surveillance and counseling acute Exercise counseling acute Food insecurity acute PCOS (polycystic ovarian syndrome) acute Prediabetes acute Severe obesity (BMI >= 40) a cute Lightheadedness acute Menorrhagia acute Palpitations acute Dietary surveillance and counseling acute Exercise counseling acute Severe obesity (BMI >= 40) a [facility] Work Phone: evaluation note* Diagnosis Onset Date Resolution Status Lightheadedness acute Menorrhagia acute Palpitations acute Dietary surveillance and counseling acute Exercise counseling acute Severe obesity (BMI >= 40) a cute [facility] Work Phone: Evaluation note* Diagnosis Onset Date Resolution Status Aphasia acute History of seizures acute Memory loss acute Migraine acute [facility] Work Phone: evaluation note* Diagnosis Onset Date Resolution Status Aphasia acute Apnea acute Fatigue acute History of seizures acute Loud snoring acute Memory loss acute Migraine acute Morbid obesity acute Acute UTI acute [facility] Work Phone: Evaluation note* Diagnosis Onset Date Resolution Status Aphasia acute Apnea acute Fatigue acute History of seizures acute Loud snoring acute Memory loss acute Migraine acute Morbid obesity acute Acute UTI acute Fatty liver disease, nonalcoholic acute Frequent UTI acute UTI (urinary tract infection) acute [facility] Work Phone: history general Narrative [...] History Hospitalized for blood l oss 2010 [facility] Other history general Narrative - Reported* Type [...] History Hospitalized for blood l oss 2010 [facility] Other history general Narrative - Reported* Type [...] History Hospitalized for blood l oss 2010 [facility] Other history general Narrative - Reported* Type [...] History Hospitalized for blood l oss 2010 [facility] Other Reply.iobevh general Narrative - Reported* Type Description Date [...] History Hospitalized for blood l oss 2010 [facility] Other history general Narrative - Reported* Type [...] History Hospitalized for blood l oss 2010 [facility] Other history general Narrative - Reported* Type [...] History Hospitalized for blood l oss 2010 [facility] Other Hospital Discharge instructionsAmbulatory Orders* Referral to Gastroenterology Time Frame: 06/21/24, Location: None Selected * Referral to Urology Time Frame: 06/21/24, Location: None Selected [facility] Work Phone: Reason for referral (narrative)* Reason *FU 06/20 would sherif groves a referral to pscyiatrist -- was recently diagnosed with bipolar and would like medication management. Diagnosis 1 Bipolar 2 disorder ( F31.81) Referral Organization [facility] Referring Provider First Name Manisha Referring Provider Last Name Charlyacher Referring Provider Specialty Nurse Pract ernesto Referred Organization [facility] [place] Referred Address [address] ,[place], [place],[address] Referred Provider Specialty Psychiatry Referral Priority Routine General Notes Paola Henderson 01:25:30 PM >received today, not sure if [facility] does medication management, waiting for notes to be locked Paola Henderson 06/13/2023 10:34:39 AM >notes locked, referral faxed Clinical Notes p: [phone] f: [id number] [facility] Reason *FU 06/20 would sherif groves a referral to pain management for other options for pain control for back pain Diagnosis 1 Degenerative lumbar disc (M51.36) Referral Organization [facility]an Referring Provider First Name Manisha Referring Provider Last Name Charlyacher Referring Provider Specialty Nurse Noble orozco Referred Organization [facility] Referred Provider Yrn Parsons Referred Address [address], [place],[address] Referred Provider Specialty Pain Medicin e Referral Priority Routine General Notes Paola Henderson 01:21:23 PM >received today, waiting for notes to be locked Paola Henderson 06/13/2023 10:25:26 AM >notes locked, referral faxed Clinical Notes f: [phone] [employer] Other Summary Purpose Family History Relationship Condition [...] Memory loss Migraine Morbid obesity Acute UTI Chief Complaint Memory Concerns BH possible UTI, cramping, frequency Dysuria Reason for Visit Aphasia Apnea Fatigue History of seizures Loud snoring Memory loss Migraine Morbid obesity Acute UTI Chief Complaint Memory Concerns possible UTI, cramping, frequency R30.0 Amb Documentation ER f/u abdominal pain Reason for Visit Aphasia Apnea Fatigue History of seizures Loud snoring Memory loss Migraine Morbid obesity Acute UTI Fatty liver disease, nonalcoholic Frequent UTI UTI (urinary tract infection) Additional Source Comments INFORMATION SOURCE (unrecogn ized section and content) DATE CREATED AUTHOR 08/27/2021 [facility] DATE CREATED AUTHOR AUTHOR'S ORGANIZ ATION 01/01/2023 [facility] DATE CREATED AUTHOR AUTHOR'S ORGANIZ ATION 01/30/2024 [facility] DATE CREATED AUTHOR AUTHOR'S ORGANIZ ATION 03/18/2024 [facility] DATE CREATED AUTHOR AUTHOR'S ORGANIZ ATION 06/20/2024 [facility] y[facility] REASON FOR VISIT (unrecogniz [...] Member Role Status Dates Manisha Marc APRN COMPONENT LAB TECH-[place] Primary Care Provider Active Team Status: Active Member Role Status Dates Manisha Marc APRN NP-[place] Primary Care Provider, Attending Provider Active Team Status: Inactive Member Role Status Dates Manisha Marc APRN NP-[place] Primary Care Provider Active Celio Mullins DO Attending Provider Active Team Status: Inactive Member Role Status Dates Manisha Marc APRN COMPONENT LAB TECH-C Primary Care Provider Active Clinton Frazier MD Attending Provider Active Team Status: Inactive Member Role Status Dates Manisha Marc APRN NP-[place] Primary Care Provider Active Start: July 032022 End: July 03, 2023 Celio Mullins DO Attending Provider Active St art: July 03, 2023 End: July 03, 2023 Team Status: Active Member Role Status Dates Manisha Marc APRN COMPONENT LAB TECH-C Primary Care Provider Active Start: July 032022 Edward Gilmore MD Attending Provider Active Start: July 03, 2023 Team Status: Inactive Member Role Status Dates Michelle Ernandez COMPONENT LAB TECH-C Attending Provider Active S tart: July 07, 2023 End: July 07, 2023 Team Status: Inactive Member Role Status Dates Celio Mullins DO Attending Provider Active St art: July 15, 2023 End: July 15, 2023 Team Status: Inactive Member Role Status Dates Manisha Marc APRN COMPONENT LAB TECH-C Primary Care Provider Active Start: July End: July 19, 2023 Clinton Frazier MD Attending Provider Active Start: July 19, 2023 End: July 19, 2023 Team Status: Inactive Member Role Status Dates Manisha Marc APRN COMPONENT LAB TECH-C Attending Provider Act rafal Start: August 13, 2023 End: August 13, 2023 Team Status: Inactive Member Role Status Dates Nely Cage [facility] Attending Provider Active Start: August 19, 2023 End: August 19, 2023 Team Status: Active Member Role Status Dates Manisha Marc APRN COMPONENT LAB TECH-C Primary Care Provider, Attending Provider Active Start: August 19, 2023 Team Status: Inactive Member Role Status Dates Manisha Marc APRN COMPONENT LAB TECH-C Attending Provider Act rafal Start: September 03, 2023 End: September 03, 2023 Team Status: Inactive Member Role Status Dates Manisha Marc APRN COMPONENT LAB TECH-C Primary Care Provider Active Start: October 012023 End: October 01, 2023 Celio Mullins DO Attending Provider Active St art: October 01, 2023 End: October 01, 2023 Team Status: Active Member Role Status Dates Manisha Marc APRN COMPONENT LAB TECH-C Primary Care Provider Active Start: August 142022 Edward Gilmore MD Attending Provider Active Start: August 14, 2023 Team Status: Active Member Role Status Dates Manisha Rohrbacher , AUTOMATION ENGINEERING MANAGER COMPONENT LAB TECH-C Primary Care Provider, Attending Provider Active Start: October 06, 2023 Team Status: Inactive Member Role Status Dates Manisha Marc APRN COMPONENT LAB TECH-C Primary Care Provider Active Start: October 082023 End: October 08, 2023 Akil Cox DO Attending Provider Active Start: October 08, 2023 End: October 08, 2023 Team Status: Active Member Role Status Dates Manisha Marc APRN COMPONENT LAB TECH-C Primary Care Provider, Attending Provider Active Start: October 30, 2023 Team Status: Inactive Member Role Status Dates Manisha Marc APRN COMPONENT LAB TECH-C Primary Care Provider, Attending Provider Active Start: November 03, 2023 End: November 03, 2023 Team Status: Active Member Role Status Dates Manisha Marc APRN COMPONENT LAB TECH-C Primary Care Provider Active Start: August Edward Gilmore MD Attending Provider Active Start: September 10, 2023 Team Status: Inactive Member Role Status Dates Manisha Marc APRN COMPONENT LAB TECH-C Primary Care Provider Active Start: November 26, 2023 End: November 26, 2023 Celio Mullins DO Attending Provider Active St art: November 26, 2023 End: November 26, 2023 Team Status: Active Member Role Status Dates Manisha Marc APRN COMPONENT LAB TECH-C Primary Care Provider Active Start: January 01, 2024 Edward Gilmore MD Attending Provider Active Start: January 01, 2024 Team Status: Active Member Role Status Dates Manisha Marc APRN COMPONENT LAB TECH-C Primary Care Provider Active Start: April 03, 2024 Edward Gilmore MD Attending Provider Active Start: April 03, 2024 Team Status: Active Member Role Status Dates Manisha Marc APRN COMPONENT LAB TECH-C Primary Care Provider Active Start: April 12, 2024 Jaymie Griffin DO Attending Provider Active Start: April 12, 2024 Team Status: Inactive Member Role Status Dates Manisha Marc APRN COMPONENT LAB TECH-C Primary Care Provider, Attending Provider Active Start: April 21, 2024 End: April 21, 2024 Team Status: Active Member Role Status Dates Manisha Marc APRN COMPONENT LAB TECH-C Primary Care Provider Active Start: April 12, 2024 Agusto Rojas DO Attending Provider Active Sta rt: April 12, 2024 Team Status: Active Member Role Status Dates Manisha Marc APRN COMPONENT LAB TECH-C Primary Care Provider Active Start: April 15, 2024 Agusto Rojas DO Attending Provider Active Sta rt: April 15, 2024 Team Status: Active Member Role Status Dates Manisha Marc APRN COMPONENT LAB TECH-C Primary Care Provider Active Start: April 192023 Edward Gilmore MD Attending Provider Active Start: May 13, 2024 Team Status: Active Member Role Status Dates Manisha Marc APRN COMPONENT LAB TECH-C Primary Care Provider, Attending Provider Active Start: June 07, 2024 Team Status: Inactive Member Role Status Dates Manisha Marc APRN COMPONENT LAB TECH-C Primary Care Provider Active Start: May End: June 15, 2024 Casandra Hassan APRN Attending Provider Active Start: June 15, 2024 End: June 15, 2024 Team Status: Inactive Member Role Status Dates Casandra Hassan APRN Attending Provider Active Start: June 15, 2024 End: June 15, 2024 Team Status: Active Member Role Status Dates Hilaria Elizondo CMA Attending Provider Active Start: June 18, 2024 Team Status: Inactive Member Role Status Dates Manisha Marc APRN COMPONENT LAB TECH-C Primary Care Provider, Attending Provider Active Start: June 21, 2024 End: June 21, 2024 Goals (unrecognized section and content) [...] BE BASED ON THE PRIMARY CLINICAL RECORDS. [facility]. provides no warranty or guarantee of the accuracy or completeness of information in this document.
[2024-06-24] MEDS: KETOROLAC TROMETHAMINE 30 MG/ML VIAL 15 MG IM (03:47)
[2024-06-24] MEDS: CARBAMAZEPINE 200 MG TABLET 100 MG PO (03:48)
== END 2024-06-24 04:00 | disposition home or self-care (01) ==
PROVIDERS: Emergency Provider Emergency Medicine; PCP Nurse Practitioner Family
DX: G50.1 Atypical facial pain (principal); G50.0 Trigeminal neuralgia
CPT/HCPCS: 96372; 99284; J1885

== ENCOUNTER 2024-06-30 20:54 | Outpatient (OUT) | payer OTHER, SELFPAY ==
--- OUTSIDE RECORDS SUMMARY | 2024-06-30 20:57 | XMS_ITS | CCD ---
Author Organization [facility] Care Team Providers Care E Merchant Name Role Phone BRENT KINNEY Referring Unavailable [...] Care Provider MD Clinton Frazier Attending Provider [phone] ROSITA Marc Attending Provider ROSITA Marc Primary Care Provider DO Celio Mullins Attending Provider MD Edward Gilmore Attending Provider MD Clinton Frazier Attending Provider [phone] ROSITA Marc Primary Care Provider MD Edward Gilmore Attending Provider DO Gwen Cox Attending Provider ROSITA Marc Primary Care Provider MD Edward Gilmore Attending Provider ROSITA Marc Attending Provider DO Gwen Cox Attending Provider [phone] ROSITA Marc Primary Care Provider MD Edward Gilmore Attending Provider [phone] ROSITA Marc Primary Care Provider MD Edward [...] Unavailab Edward Lance Attending Unavailab le Denyrbacher, [facility] Unavailable Celio Mullins Admitting Unavailable Celio Mullins Attending Unavailable Denyrbacher, [facility] Unavailable Clinton Frazier Admitting Unavailable Clinton Frazier Attending Unavailable Denyrbacher, [facility] Unavailable Casandra Hassan Admitting Unavailable Casandra Hassan Attending Unavailable Ivon Mullinsten M Admitting Unavailable Ivon Mullinsten M Attending Unavailable Rohrbacher, [facility] Unavailable Ivon Mullinsten M Admitting Unavailable Ivon Mullinsten M Attending Unavailable Rohrbacher, [facility] Unavailable Gwen Cox Admitting Unavailab Gwen Avila M Attending Unavailab le Rohrbacher, [facility] Unavailable Rohrbacher, Manisha Admitting Unavailable Rohrbacher, Manisha Attending Unavailable Rohrbacher, [facility] Unavailable MARKO OSCAR Attending Unavailable MELA ANDERSON Attending Unavailable JUSTIN, MELA Attending Unavailable GWEN COX Attending Unavailable MANISHA MARC Referring Unavailab MARIO Garcia Attending Unavailable GWEN COX Referring Unavailable Allergies Allergy Classification Reported Allergen(s) Allergy Type Date of Onset Reaction(s) Facility (20 sources) Amoxicillin; Translations: [AMOXICILLIN] Drug Allergy 07-08-20 16 rash, [facility] Cefaclor; Translations: [CEFACLOR] Drug Allergy 04-14-20 15 Hives [facility] Repository (20 sources) Erythromycin; Translations: [ERYTHROMYCIN] Drug Allergy 04-14-20 15 hives, Rash [facility] Repository (19 sources) Cefaclor; Translations: [Ceclor] Drug Allergy 04-17-20 15 [facility] Repository (16 sources) Erythromycin Drug Allergy 04-17-20 15 Unknown Reaction, [facility] Repository (16 sources) Cephalosporins (Antibiotic); Translations: [Cephalosporins] Allergy to substance 12-10-19 22 Unknown Reaction, Rash [facility] (3 sources) Lactulose; Translations: [lactulose] Drug Allergy 02-12-20 20 Unknown Reaction [facility] (1 source) Erythromycin Drug Allergy 06-21-20 24 [facility] Repository Medications Current Medications Medication Drug Class(es) Dates Sig (Normalized) Sig (Original) [id number] 200 actuat albuterol 0.09 mg/actuat metered dose [...] 10/10/2023 Active take 1 capsule by mo [facility] every twenty-four hours Vraylar 1.5 MG 1 [...] Start: 05-31-2021 take 1 capsule by mo [facility] every twelve hours Macrobid 100 MG 1 cap(s) Orally bid for 5 day(s) May, Active phenazopyridine hydrochloride 200 mg oral tablet (4 sources) Start: 06-15-2024 End: 06-21-2024 take 1 tablet by mouth three times daily Phenazopyridine (Pyridium) 200 mg tablet Discontinued 200 MG PO Three times daily 04 20June 14, 2024 11:00pm June 21, 2024 11:24am Start: 05-31-2021 take 1 tablet by [facility] every eight hours Pyridium 200 MG 1 tablet after meals Orally Three times a day for 2 day(s) May, Active predniSONE 20 mg oral tablet (5 sources) Start: 06-29-2023 take 1 tablet by mouth every twelve hours predniSONE 20 MG 1 tablet Orally bid for 5 day(s) Jun, Not-Taking Start: 06-17-2021 take 1 tablet by [facility] every twelve hours predniSONE 20 MG 1 [...] bacterial skin contaminants 2 Days PERFORMED BY: [place] [address] PATHOLOGIST CURTAIN CLEANER NESHA MAIER M.D. Normal [facility] Comment on above: Performed By: #### C UU #### [address] Basophils Auto (Bld) [#/Vol] on 06-15-2024 Basophils (Bld) [#/Vol] 0.1 10 3/uL 0.0-0.1 [facility] Basophils/100 WBC Auto (Bld) on 06-15-2024 Basophils/100 WBC (Bld) 0.7 % 0.2-2.0 [facility] Chlamydia trachomatis DNA [P resence] in Specimen by SURI with probe detectionOrdered By: Casandra Hassan on 06-15-2024 C. trachomatis DNA SURI+probe Ql (Unsp spec) Negative Negative [facility] Chlamydia/GC/Trich NAAon Chlamydia Trachomotis, SURI Negative Normal Negative [facility] Comment on above: Performed By: #### C UU #### [facility] [address] [place] [address] #### GCCHLAMTRI #### [facility] , Neisseria Gonorrhoeae, SURI Negative Normal Negative [facility] Comment on above: Performed By: #### C UU #### [place] [address] [place] #### GCCHLAMTRI #### [facility] , Trichomonas SURI Negative Normal Negative [facility] Comment on above: Result Comment: Perf ormed at: =G - [facility] [place] [address] Yas[address] Mccarty W [id number] [employer] Rep[employer]: Monse Cardona MD, Phone: [phone] PERFORMED BY: [place] [address] PATHOLOGIST CURTAIN CLEANER NESHA MAIER M.D. Performed By: #### C UU #### [address] #### GCCHLAMTRI #### [facility] , Eosinophils/100 WBC Auto (Bl d)on 06-15-2024 Eosinophils/100 WBC (Bld) 1.1 % 0.9-7.0 [facility] Erythrocyte distribution wid th Auto (RBC) [Ratio]on 06-15-2024 Erythrocyte distribution width (RBC) [Ratio] 16.4 % High 11.0-15.0 [facility] Estimated glomerular filtrat ion rate (GFR) non- Americanon 06-15-2024 GFR/1.73 sq M.predicted among non-blacks MDRD (S/P/Bld) [Vol rate/Area] mL/min/{1.73_m2} >=60 mL/min/1.73 m 2 [facility] Globulin Calc (S) [Mass/Vol] on 06-15-2024 Globulin (S) [Mass/Vol] 4.1 g/dL [facility] HCG ( test) IA.rapi d Ql (U)on 06-15-2024 HCG ( test) Ql (U) Negative NEGATIVE [facility] Hematocrit Auto (Bld) [Volum e fraction]on 06-15-2024 Hematocrit (Bld) [Volume fraction] 42.5 % 36.0-48.0 [facility] Hemoglobin [Mass/volume] in Bloodon 06-15-2024 Hemoglobin (Bld) [Mass/Vol] 13.6 g/dL 12.0-16.0 [facility] Laboratory - Chemistry and C hemistry - challengeon 06-15-2024 Bilirubin Ql (U) Negative NEGATIVE [facility] Glucose (U) [Mass/Vol] Negative NE[facility]IVE [facility] Ketones Ql (U) Negative NEGATIVE [facility] pH (U) 6.0 [pH] 5.0-9.0 [facility] Specific gravity (U) [Rel density] 1.025 1.005-1.025 [facility] Urobilinogen Qn (U) 0.2 {Tamiko'U}/dL 0.2-1.0 [facility] Albumin [Mass/Vol] 3.6 g/dL 3.4-5.0 [facility] ALP [Catalytic activity/Vol] 76 U/L 46-116 [facility] ALT [Catalytic activity/Vol] 46 U/L 14-59 [facility] AST [Catalytic activity/Vol] 29 U/L 15-37 [facility] Bilirubin [Mass/Vol] 0.4 mg/dL 0.2-1.0 [facility] Calcium [Mass/Vol] 9.5 mg/dL 8.5-10.1 [facility] Chloride [Moles/Vol] 103 mmol/L 98-107 [facility] CO2 [Moles/Vol] 26.4 mmol/L 21.0-32.0 [facility] Creatinine [Mass/Vol] 0.83 mg/dL 0.55-1.02 [facility] GFR/1.73 sq M.predicted MDRD (S/P/Bld) [Vol rate/Area] mL/min/{1.73_m2} >=60 mL/min/1.73 m 2 [facility] Glucose [Mass/Vol] 102 mg/dL 74-106 [facility] Lactate [Moles/Vol] 1.9 mmol/L 0.4-2.0 [facility] Lipase [Catalytic activity/Vol] 32.0 U/L 16.0-77.0 [facility] Potassium [Moles/Vol] 3.9 mmol/L 3.5-5.1 [facility] Protein [Mass/Vol] 7.7 g/dL 6.4-8.2 [facility] Sodium [Moles/Vol] 139 mmol/L 136-145 [facility] Urea nitrogen [Mass/Vol] 9.0 mg/dL 7.0-18.0 [facility] Urea nitrogen/Creatinine [Mass ratio] 10.8 mg/mg [facility] Laboratory - Hematology and Cell countson 06-15-2024 Immature granulocytes/100 WBC (Bld) 0.2 % 0.0-0.5 [facility] Laboratory - Microbiology an d Antimicrobial susceptibilityOrdered By: Casandra Hassan on 06-15-2024 Bacteria identified Cx Nom (U) Escherichia coli (ESBL) Abnormal [facility] Laboratory - Specimen inform ationon 06-15-2024 Appearance (U) CLEAR CLEAR [facility] Color (U) LT. YELLOW YELLOW [facility] Laboratory - Urinalysison Leukocyte esterase Test strip Ql (U) TRACE Abnormal NEGATIVE [facility] Mucus Ql (Urine sed) TRACE Abnormal NONE SEEN [facility] Nitrite Ql (U) Positive Abnormal NEGATIVE [facility] Protein Ql (U) >=300 mg/dL Abnormal NEG/TRACE [facility] Leukocytes [#/volume] correc carmelita for nucleated erythrocytes in Blood by Automated counon 06-15-2024 WBC corrected for nucl RBC Auto (Bld) [#/Vol] 12.7 10 3/uL High 4.0-11.0 [facility] Lymphocytes Auto (Bld) [#/Vo l]on 06-15-2024 Lymphocytes (Bld) [#/Vol] 2.9 10 3/uL 1.2-3.8 [facility] Lymphocytes/100 WBC Auto (Bl d)on 06-15-2024 Lymphocytes/100 WBC (Bld) 23.0 % 20.5-60.0 [facility] MCH Auto (RBC) [Entitic mass ]on 06-15-2024 MCH (RBC) [Entitic mass] 26.7 pg 26.7-34.0 [facility] MCHC Auto (RBC) [Mass/Vol]on 06-15-2024 MCHC (RBC) [Mass/Vol] 32.0 g/dL 29.9-35.2 [facility] MCV Auto (RBC) [Entitic vol] on 06-15-2024 MCV (RBC) [Entitic vol] 83.5 fL 81.0-99.[address] [facility] Monocytes Auto (Bld) [#/Vol] on 06-15-2024 Monocytes (Bld) [#/Vol] 0.6 10 3/uL 0.3-0.8 [facility] Monocytes/100 WBC Auto (Bld) on 06-15-2024 Monocytes/100 WBC (Bld) 4.9 % 1.7-12.[address] [facility] Neisseria gonorrhoeae DNA [P resence] in Specimen by SURI with probe detectionOrdered By: Casandra Hassan on 06-15-2024 N. gonorrhoeae DNA SURI+probe Ql (Unsp spec) Negative Negative [facility] Neutrophils Auto (Bld) [#/Vo l]on 06-15-2024 Neutrophils (Bld) [#/Vol] 8.9 10 3/uL High 1.4-6.5 [facility] Neutrophils/100 WBC Auto (Bl d)on 06-15-2024 Neutrophils/100 WBC (Bld) 70.1 % 43.0-75.0 [facility] No Panel Informationon 06-15 Miscellaneous Test Comment See comment [facility] Comment on above: Specimen Source: UCC - Urine,Clean Catch - Urine CC - 200.100 Urine Bacteria SMALL #/HPF Abnormal NONE SEEN [facility] Urine Culture Reflexed YES [facility] Urine Culture Result 1 \R\ Urine Culture , Routine\R\ Organism: Gram negative jus : [facility] Urine Microscopic Review YES [facility] Urine Occult Blood MODERATE Abnormal NEGATIVE [facility] Urine Other Casts NONE SEEN #/LPF NONE SEEN [facility] Urine Other Crystals None Seen #/HPF None Seen [facility] Urine RBC 10-20 #/HPF Abnormal 0-2 [facility] Urine Squamous Epithelial Cells FEW #/LPF Abnormal NONE/RARE [facility] Urine WBC 20-50 #/HPF Abnormal NONE SEEN [facility] Eosinophils # (Auto) 0.1 10 3/uL 0.0-0.7 [facility] Immature Granulocyte # (Auto) 0.03 10 3/uL 0.00-0.03 [facility] Platelet mean volume Auto (B ld) [Entitic vol]on 06-15-2024 Platelet mean volume (Bld) [Entitic vol] 10.0 fL 9.5-13.5 [facility] Platelets Auto (Bld) [#/Vol] on 06-15-2024 Platelets (Bld) [#/Vol] 308 10 3/uL 150-450 [facility] RBC Auto (Bld) [#/Vol]on RBC (Bld) [#/Vol] 5.09 10 6/uL 4.20-5.40 [facility] Serum or plasma albumin/glob ulin mass ratioon 06-15-2024 Albumin/Globulin [Mass ratio] 0.9 {ratio} [facility] Serum or plasma anion gap de terminationon 06-15-2024 Anion gap [Moles/Vol] 13.5 mmol/L [facility] Trichomonas vaginalis DNA [P resence] in Specimen by SURI with probe detectionOrdered By: Casandra Hassan on 06-15-2024 T. vaginalis DNA SURI+probe Ql (Unsp spec) Negative Negative [facility] Comment on above: Performed at: =G - [address] [id number] Director: Monse Cardona MD, Phone: [phone] Urine Cultureon 06-15-2024 Bacteria identified Cx Nom (U) ORGANISM: Escherichia coli (ESBL) (O:ESCCOLESBL) [place] Count >100,000 Aerobic RENATE Charge ([id number]) ----- [...] RESISTANT TO ALL B-LACTAM DRUGS. PERFORMED BY: [place] [address] PATHOLOGIST CURTAIN CLEANER NESHA MAIER M.D. Normal [facility] Comment on above: Performed By: #### C UU #### [place] [address] [place] #### GCCHLAMTRI #### [facility] , Iron binding capacity [Mass/ volume] in Serum or Plasmaon 06-07-2024 Iron binding capacity [Mass/Vol] 411.0 ug/dL 250.0-450.0 [facility] Iron saturation [Mass Fracti on] in Serum or Plasmaon 06-07-2024 Iron saturation [Mass fraction] 13.4 % [facility] Laboratory - Chemistry and C hemistry - challengeon 06-07-2024 Iron [Mass/Vol] 55.0 ug/dL 50.0-170.0 [facility] Iron binding capacity [Mass/ volume] in Serum or Plasmaon 04-21-2024 Iron binding capacity [Mass/Vol] 495.0 ug/dL High 250.0-450.0 [facility] Iron saturation [Mass Fracti on] in Serum or Plasmaon 04-21-2024 Iron saturation [Mass fraction] 15.4 % [facility] Laboratory - Chemistry and C hemistry - challengeon 04-21-2024 Cobalamin (Vitamin B12) [Mass/Vol] 815 pg/mL [id number] [facility] Comment on above: Performed at: [address] [id number] Director: Cassius Zhong PhD, Phone: [phone] Iron [Mass/Vol] 76.0 ug/dL 50.0-170.0 [facility] TSH Qn 2.211 m[IU]/L 0.358-3.740 [facility] Basophils Auto (Bld) [#/Vol] on 04-12-2024 Basophils (Bld) [#/Vol] 0.1 10 3/uL 0.0-0.1 [facility] Basophils/100 WBC Auto (Bld) on 04-12-2024 Basophils/100 WBC (Bld) 0.6 % 0.2-2.[address] [facility] Buprenorphine [Presence] in Urineon 04-12-2024 Buprenorphine Ql (U) Negative NEGATIVE [facility] Comment on above: DRUG CLASS TEST SYST EM CUT-OFF CONCENTRATIONS ARE ASFOLLOWS:AMP (Amphetamine): 500 ng/mLBAR (Barbiturates): 200 ng/mLBZO (Benzodiazepines): 150 ng/mLBUP (Buprenorphine): 10 ng/mLCOC (Cocaine): 150 ng/mLmAMP (Methamphetamine): 500 ng/mLMTD (Methadone): 200 ng/mLOPI (Opiates): 100 ng/mLOXY (Oxycodone): 100 ng/mLPCP (Phencyclidine): 25 ng/mLTHC (Cannabinoids): 50 ng/mLTCA (Trycyclic Antidepressants): 300 ng/mL Eosinophils/100 WBC Auto (Bl d)on 04-12-2024 Eosinophils/100 WBC (Bld) 1.0 % 0.9-7.0 [facility] Erythrocyte distribution wid th Auto (RBC) [Ratio]on 04-12-2024 Erythrocyte distribution width (RBC) [Ratio] 17.4 % High 11.0-15.0 [facility] Estimated glomerular filtrat ion rate (GFR) non- Americanon 04-12-2024 GFR/1.73 sq M.predicted among non-blacks MDRD (S/P/Bld) [Vol rate/Area] mL/min/{1.73_m2} >=60 [facility] Globulin Calc (S) [Mass/Vol] on 04-12-2024 Globulin (S) [Mass/Vol] 4.1 g/dL [facility] HCG ( test) IA.rapi d Ql (U)on 04-12-2024 HCG ( test) Ql (U) Negative NEGATIVE [facility] Hematocrit Auto (Bld) [Volum e fraction]on 04-12-2024 Hematocrit (Bld) [Volume fraction] 37.9 % 36.0-48.0 [facility] Hemoglobin [Mass/volume] in Bloodon 04-12-2024 Hemoglobin (Bld) [Mass/Vol] 11.6 g/dL Low 12.0-16.0 [facility] Laboratory - Chemistry and C hemistry - challengeon 04-12-2024 Albumin [Mass/Vol] 3.3 g/dL Low 3.4-5.0 [facility] ALP [Catalytic activity/Vol] 75 U/L 46-116 [facility] ALT [Catalytic activity/Vol] 36 U/L 14-59 [facility] AST [Catalytic activity/Vol] 19 U/L 15-37 [facility] Bilirubin [Mass/Vol] 0.3 mg/dL 0.2-1.0 [facility] Calcium [Mass/Vol] 8.6 mg/dL 8.5-10.1 [facility] Chloride [Moles/Vol] 101 mmol/L 98-107 [facility] CO2 [Moles/Vol] 28.7 mmol/L 21.0-32.0 [facility] Creatinine [Mass/Vol] 0.70 mg/dL 0.55-1.02 [facility] GFR/1.73 sq M.predicted MDRD (S/P/Bld) [Vol rate/Area] mL/min/{1.73_m2} >=60 [facility] Glucose [Mass/Vol] 103 mg/dL 74-106 [facility] Potassium [Moles/Vol] 3.7 mmol/L 3.5-5.1 [facility] Protein [Mass/Vol] 7.4 g/dL 6.4-8.2 [facility] Sodium [Moles/Vol] 136 mmol/L 136-145 [facility] Urea nitrogen [Mass/Vol] 10.0 mg/dL 7.0-18.0 [facility] Urea nitrogen/Creatinine [Mass ratio] 14.3 mg/mg [facility] Bilirubin Ql (U) Negative NEGATIVE [facility] Glucose (U) [Mass/Vol] Negative NEGATIVE [facility] Ketones Ql (U) Negative NEGATIVE [facility] pH (U) 6.0 [pH] 5.0-9.0 [facility] Specific gravity (U) [Rel density] >=1.030 Abnormal 1.005-1.025 [facility] Urobilinogen Qn (U) 0.2 {Tamiko'U}/dL 0.2-1.0 [facility] Laboratory - Drug toxicology on 04-12-2024 Amphetamines Ql (U) Negative NEGATIVE [facility] Benzodiazepines Ql (U) Negative NEGATIVE [facility] Cocaine Ql (U) Negative NEGATIVE [facility] Opiates Ql (U) Negative NEGATIVE [facility] Phencyclidine Ql (U) Negative NEGATIVE [facility] Laboratory - Hematology and Cell countson 04-12-2024 Immature granulocytes/100 WBC (Bld) 0.3 % 0.0-0.5 [facility] Laboratory - Specimen inform ationon 04-12-2024 Appearance (U) CLEAR CLEAR [facility] Color (U) YELLOW YELLOW [facility] Laboratory - Urinalysison Leukocyte esterase Test strip Ql (U) Negative NEGATIVE [facility] Mucus Ql (Urine sed) TRACE Abnormal NONE SEEN [facility] Nitrite Ql (U) Negative NEGATIVE [facility] Protein Ql (U) Negative NEG/TRACE [facility] Leukocytes [#/volume] correc carmelita for nucleated erythrocytes in Blood by Automated counon 04-12-2024 WBC corrected for nucl RBC Auto (Bld) [#/Vol] 9.9 10 3/uL 4.0-11.0 [facility] Lymphocytes Auto (Bld) [#/Vo l]on 04-12-2024 Lymphocytes (Bld) [#/Vol] 3.5 10 3/uL 1.2-3.8 [facility] Lymphocytes/100 WBC Auto (Bl d)on 04-12-2024 Lymphocytes/100 WBC (Bld) 35.5 % 20.5-60.0 [facility] MCH Auto (RBC) [Entitic mass ]on 04-12-2024 MCH (RBC) [Entitic mass] 24.5 pg Low 26.7-34.0 [facility] MCHC Auto (RBC) [Mass/Vol]on 04-12-2024 MCHC (RBC) [Mass/Vol] 30.6 g/dL 29.9-35.2 [facility] MCV Auto (RBC) [Entitic vol] on 04-12-2024 MCV (RBC) [Entitic vol] 80.1 fL Low 81.0-99.[address] [facility] Methadone [Presence] in Urin e by Screen methodon 04-12-2024 Methadone Screen Ql (U) Negative NEGATIVE [facility] Monocytes Auto (Bld) [#/Vol] on 04-12-2024 Monocytes (Bld) [#/Vol] 0.5 10 3/uL 0.3-0.8 [facility] Monocytes/100 WBC Auto (Bld) on 04-12-2024 Monocytes/100 WBC (Bld) 4.7 % 1.7-12.[address] [facility] Neutrophils Auto (Bld) [#/Vo l]on 04-12-2024 Neutrophils (Bld) [#/Vol] 5.7 10 3/uL 1.4-6.5 [facility] Neutrophils/100 WBC Auto (Bl d)on 04-12-2024 Neutrophils/100 WBC (Bld) 57.9 % 43.0-75.0 [facility] No Panel Informationon 04-12 Acetaminophen Level <2.0 ug/mL Low 10.0-30.0 [facility] Eosinophils # (Auto) 0.1 10 3/uL 0.0-0.7 [facility] Ethyl Alcohol Level <3 mg/dL [facility] Comment on above: NOTE: 80 mg/dl is th e legal limit for a blood alcohol level Immature Granulocyte # (Auto) 0.03 10 3/uL 0.00-0.03 [facility] Salicylates Level <2.8 mg/dL <=19.9 [facility] Urine Bacteria SMALL #/HPF Abnormal NONE SEEN [facility] Urine Barbiturates Screen Negative NEGATIVE [facility] Urine Culture Reflexed YES [facility] Urine Marijuana (THC) Screen Negative NEGATIVE [facility] Urine Methamphetamines Screen Negative NEGATIVE [facility] Urine Occult Blood Negative NEGATIVE [facility] Urine Other Casts NONE SEEN #/LPF NONE SEEN [facility] Urine Other Crystals None Seen #/HPF None Seen [facility] Urine RBC 0-2 #/HPF 0-2 [facility] Urine Squamous Epithelial Cells FEW #/LPF Abnormal NONE/RARE [facility] Urine Transitional Epithelial Cells RARE #/LPF Abnormal NONE SEEN [facility] Urine WBC 2-5 #/HPF Abnormal NONE SEEN [facility] Platelet mean volume Auto (B ld) [Entitic vol]on 04-12-2024 Platelet mean volume (Bld) [Entitic vol] 10.2 fL 9.5-13.5 [facility] Platelets Auto (Bld) [#/Vol] on 04-12-2024 Platelets (Bld) [#/Vol] 299 10 3/uL 150-450 [facility] RBC Auto (Bld) [#/Vol]on RBC (Bld) [#/Vol] 4.73 10 6/uL 4.20-5.40 [facility] Serum or plasma albumin/glob ulin mass ratioon 04-12-2024 Albumin/Globulin [Mass ratio] 0.8 {ratio} [facility] Serum or plasma anion gap de terminationon 04-12-2024 Anion gap [Moles/Vol] 10.0 mmol/L [facility] Urine tricyclic antidepressa nt measurementon 04-12-2024 Tricyclic antidepressants (U) [Mass/Vol] Negative NEGATIVE [facility] oxyCODONE+oxyMORphone [Prese nce] in Urine by Screen methodon 04-12-2024 oxyCODONE+oxyMORphone Screen Ql (U) Negative NEGATIVE [facility] Basophils Auto (Bld) [#/Vol] on 11-03-2023 Basophils (Bld) [#/Vol] 0.0 10 3/uL 0.0-0.1 [facility] Basophils/100 WBC Auto (Bld) on 11-03-2023 Basophils/100 WBC (Bld) 0.5 % 0.2-2.[address] [facility] Eosinophils/100 WBC Auto (Bl d)on 11-03-2023 Eosinophils/100 WBC (Bld) 1.4 % 0.9-7.0 [facility] Erythrocyte distribution wid th Auto (RBC) [Ratio]on 11-03-2023 Erythrocyte distribution width (RBC) [Ratio] 16.3 % 11.0-15.0 [facility] Estimated glomerular filtrat ion rate (GFR) non- Americanon 11-03-2023 GFR/1.73 sq M.predicted among non-blacks MDRD (S/P/Bld) [Vol rate/Area] mL/min/{1.73_m2} >=60 [facility] Globulin Calc (S) [Mass/Vol] on 11-03-2023 Globulin (S) [Mass/Vol] 4.0 g/dL [facility] Hematocrit Auto (Bld) [Volum e fraction]on 11-03-2023 Hematocrit (Bld) [Volume fraction] 26.1 % 36.0-48.0 [facility] Hemoglobin [Mass/volume] in Bloodon 11-03-2023 Hemoglobin (Bld) [Mass/Vol] 7.8 g/dL 12.0-16.0 [facility] Human papilloma virus 16+18+ 31+33+35+39+45+51+52+56+58+59+66+68 DNA [Presence] in [place] 11-03-2023 HPV 16+18+31+33+35+39+45+51+ 52+56+58+59+66+68 DNA Probe+sig amp Ql (Cvx) Negative Negative [facility] Comment on above: This nucleic acid am plification test detects fourteen high-risk HPV types (16,18,31,33,35,39,45,51,52,56,58,59,66,68)without differentiation.Performed at: =G - [facility] [address] [id number] Director: Monse Cardona MD, Phone: [phone] at: WB - [facility] [address] [id number] Director: Monse Cardona MD, Phone: [phone] Iron binding capacity [Mass/ volume] in Serum or Plasmaon 11-03-2023 Iron binding capacity [Mass/Vol] 512.0 ug/dL 250.0-450.0 [facility] Iron saturation [Mass Fracti on] in Serum or Plasmaon 11-03-2023 Iron saturation [Mass fraction] 2.7 % [facility] Laboratory - Chemistry and C hemistry - challengeon 11-03-2023 Albumin [Mass/Vol] 3.1 g/dL 3.4-5.0 [facility] ALP [Catalytic activity/Vol] 63 U/L 46-116 [facility] ALT [Catalytic activity/Vol] 29 U/L 14-59 [facility] AST [Catalytic activity/Vol] 18 U/L 15-37 [facility] Bilirubin [Mass/Vol] 0.2 mg/dL 0.2-1.0 [facility] Calcium [Mass/Vol] 8.7 mg/dL 8.5-10.1 [facility] Chloride [Moles/Vol] 102 mmol/L 98-107 [facility] CO2 [Moles/Vol] 27.6 mmol/L 21.0-32.0 [facility] Creatinine [Mass/Vol] 0.70 mg/dL 0.55-1.02 [facility] Ferritin [Mass/Vol] 6.0 ng/mL 8.0-252.0 [facility] GFR/1.73 sq M.predicted MDRD (S/P/Bld) [Vol rate/Area] mL/min/{1.73_m2} >=60 [facility] Glucose [Mass/Vol] 103 mg/dL 74-106 [facility] Iron [Mass/Vol] 14.0 ug/dL 50.0-170.0 [facility] Potassium [Moles/Vol] 3.8 mmol/L 3.5-5.1 [facility] Protein [Mass/Vol] 7.1 g/dL 6.4-8.2 [facility] Sodium [Moles/Vol] 139 mmol/L 136-145 [facility] Urea nitrogen [Mass/Vol] 11.0 mg/dL 7.0-18.0 [facility] Urea nitrogen/Creatinine [Mass ratio] 15.7 mg/mg [facility] Laboratory - Hematology and Cell countson 11-03-2023 Immature granulocytes/100 WBC (Bld) 0.4 % 0.0-0.5 [facility] Leukocytes [#/volume] correc carmelita for nucleated erythrocytes in Blood by Automated counon 11-03-2023 WBC corrected for nucl RBC Auto (Bld) [#/Vol] 7.4 10 3/uL 4.0-11.0 [facility] Lymphocytes Auto (Bld) [#/Vo l]on 11-03-2023 Lymphocytes (Bld) [#/Vol] 2.5 10 3/uL 1.2-3.8 [facility] Lymphocytes/100 WBC Auto (Bl d)on 11-03-2023 Lymphocytes/100 WBC (Bld) 33.6 % 20.5-60.0 [facility] MCH Auto (RBC) [Entitic mass ]on 11-03-2023 MCH (RBC) [Entitic mass] 24.8 pg 26.7-34.0 [facility] MCHC Auto (RBC) [Mass/Vol]on 11-03-2023 MCHC (RBC) [Mass/Vol] 29.9 g/dL 29.9-35.2 [facility] MCV Auto (RBC) [Entitic vol] on 11-03-2023 MCV (RBC) [Entitic vol] 82.9 fL 81.0-99.[address] [facility] Monocytes Auto (Bld) [#/Vol] on 11-03-2023 Monocytes (Bld) [#/Vol] 0.4 10 3/uL 0.3-0.8 [facility] Monocytes/100 WBC Auto (Bld) on 11-03-2023 Monocytes/100 WBC (Bld) 5.6 % 1.7-12.[address] [facility] Neutrophils Auto (Bld) [#/Vo l]on 11-03-2023 Neutrophils (Bld) [#/Vol] 4.3 10 3/uL 1.4-6.5 [facility] Neutrophils/100 WBC Auto (Bl d)on 11-03-2023 Neutrophils/100 WBC (Bld) 58.5 % 43.0-75.0 [facility] No Panel Informationon 11-02 Eosinophils # (Auto) 0.1 10 3/uL 0.0-0.7 [facility] Immature Granulocyte # (Auto) 0.03 10 3/uL 0.00-0.03 [facility] HPV High Risk Other Comment Note . [facility] Comment on above: TESTS RESULT FLAG UN ITS REF RANGE LAB --DIAGNOSIS: 02 NEGATIVE FOR INTRAEPITHELIAL LESION OR MALIGNANCY.Specimen adequacy: 02 Satisfactory for evaluation. Endocervical and/or squamous metaplastic cells (endocervical component) are present.Performed by: Mikhail Escalante, Die Attaching Machine Tender (ASCP). 02Note: Note 02 The Pap smear [...] Low,>-Panic High,A-Abnormal,AA-Critical Abnormal -------Performed at:02 WB [facility] [place] [id number] Monse Cardona MD, Reference Lab Test Patient Age Note . [facility] Comment on above: TESTS RESULT FLAG UN ITS REF RANGE LAB -- Clinician Provided Cytology Information Source.............Cervix;Endocervix No. of containers..01 ThinPrep VialAge Jean-Pierre YOON Elise... 30-65 01 - FLAG LEGEND: L-Low Normal,H-High Normal,LL-Alert Low,HH-Alert High <-Panic Low,>-Panic High,A-Abnormal,AA-Critical Abnormal -------Performed at:01 =G [facility] [place] [address] [place] [address] Monse Cardona MD, Platelet mean volume Auto (B ld) [Entitic vol]on 11-03-2023 Platelet mean volume (Bld) [Entitic vol] 9.6 fL 9.5-13.5 [facility] Platelets Auto (Bld) [#/Vol] on 11-03-2023 Platelets (Bld) [#/Vol] 323 10 3/uL 150-450 [facility] RBC Auto (Bld) [#/Vol]on RBC (Bld) [#/Vol] 3.15 10 6/uL 4.20-5.40 [facility] Serum or plasma albumin/glob ulin mass ratioon 11-03-2023 Albumin/Globulin [Mass ratio] 0.8 {ratio} [facility] Serum or plasma anion gap de terminationon 11-03-2023 Anion gap [Moles/Vol] 13.2 mmol/L [facility] Basophils Auto (Bld) [#/Vol] on 10-30-2023 Basophils (Bld) [#/Vol] 0.0 10 3/uL 0.0-0.1 [facility] Basophils/100 WBC Auto (Bld) on 10-30-2023 Basophils/100 WBC (Bld) 0.6 % 0.2-2.0 [facility] Eosinophils/100 WBC Auto (Bl d)on 10-30-2023 Eosinophils/100 WBC (Bld) 1.2 % 0.9-7.0 [facility] Erythrocyte distribution wid th Auto (RBC) [Ratio]on 10-30-2023 Erythrocyte distribution width (RBC) [Ratio] 16.6 % 11.0-15.0 [facility] Estimated glomerular filtrat ion rate (GFR) non- Americanon 10-30-2023 GFR/1.73 sq M.predicted among non-blacks MDRD (S/P/Bld) [Vol rate/Area] mL/min/{1.73_m2} >=60 [facility] HCG ( test) IA.rapi d Ql (U)on 10-30-2023 HCG ( test) Ql (U) Negative NEGATIVE [facility] Hematocrit Auto (Bld) [Volum e fraction]on 10-30-2023 Hematocrit (Bld) [Volume fraction] 26.6 % 36.0-48.0 [facility] Hemoglobin [Mass/volume] in Bloodon 10-30-2023 Hemoglobin (Bld) [Mass/Vol] 7.9 g/dL 12.0-16.0 [facility] Laboratory - Chemistry and C hemistry - challengeon 10-30-2023 Calcium [Mass/Vol] 8.5 mg/dL 8.5-10.1 [facility] Chloride [Moles/Vol] 101 mmol/L 98-107 [facility] CO2 [Moles/Vol] 28.8 mmol/L 21.0-32.0 [facility] Creatinine [Mass/Vol] 0.62 mg/dL 0.55-1.02 [facility] GFR/1.73 sq M.predicted MDRD (S/P/Bld) [Vol rate/Area] mL/min/{1.73_m2} >=60 [facility] Glucose [Mass/Vol] 104 mg/dL 74-106 [facility] Potassium [Moles/Vol] 4.0 mmol/L 3.5-5.1 [facility] Sodium [Moles/Vol] 137 mmol/L 136-145 [facility] Urea nitrogen [Mass/Vol] 8.0 mg/dL 7.0-18.0 [facility] Urea nitrogen/Creatinine [Mass ratio] 12.9 mg/mg [facility] Laboratory - Hematology and Cell countson 10-30-2023 Immature granulocytes/100 WBC (Bld) 0.4 % 0.0-0.5 [facility] Leukocytes [#/volume] correc carmelita for nucleated erythrocytes in Blood by Automated counon 10-30-2023 WBC corrected for nucl RBC Auto (Bld) [#/Vol] 7.3 10 3/uL 4.0-11.0 [facility] Lymphocytes Auto (Bld) [#/Vo l]on 10-30-2023 Lymphocytes (Bld) [#/Vol] 2.2 10 3/uL 1.2-3.8 [facility] Lymphocytes/100 WBC Auto (Bl d)on 10-30-2023 Lymphocytes/100 WBC (Bld) 30.2 % 20.5-60.0 [facility] MCH Auto (RBC) [Entitic mass ]on 10-30-2023 MCH (RBC) [Entitic mass] 25.0 pg 26.7-34.0 [facility] MCHC Auto (RBC) [Mass/Vol]on 10-30-2023 MCHC (RBC) [Mass/Vol] 29.7 g/dL 29.9-35.2 [facility] MCV Auto (RBC) [Entitic vol] on 10-30-2023 MCV (RBC) [Entitic vol] 84.2 fL 81.0-99.[address] [facility] Monocytes Auto (Bld) [#/Vol] on 10-30-2023 Monocytes (Bld) [#/Vol] 0.3 10 3/uL 0.3-0.8 [facility] Monocytes/100 WBC Auto (Bld) on 10-30-2023 Monocytes/100 WBC (Bld) 3.7 % 1.7-12.[address] [facility] Neutrophils Auto (Bld) [#/Vo l]on 10-30-2023 Neutrophils (Bld) [#/Vol] 4.6 10 3/uL 1.4-6.5 [facility] Neutrophils/100 WBC Auto (Bl d)on 10-30-2023 Neutrophils/100 WBC (Bld) 63.9 % 43.0-75.0 [facility] No Panel Informationon 10-29 Eosinophils # (Auto) 0.1 10 3/uL 0.0-0.7 [facility] Immature Granulocyte # (Auto) 0.03 10 3/uL 0.00-0.03 [facility] Platelet mean volume Auto (B ld) [Entitic vol]on 10-30-2023 Platelet mean volume (Bld) [Entitic vol] 9.4 fL 9.5-13.5 [facility] Platelets Auto (Bld) [#/Vol] on 10-30-2023 Platelets (Bld) [#/Vol] 264 10 3/uL 150-450 [facility] RBC Auto (Bld) [#/Vol]on RBC (Bld) [#/Vol] 3.16 10 6/uL 4.20-5.40 [facility] Serum or plasma anion gap de terminationon 10-30-2023 Anion gap [Moles/Vol] 11.2 mmol/L [facility] MR head/brain wo/w conon MR head/brain wo/w con [facility] [place] [address] MRI Report Signed Patient: Ashly Mehta MR#: [id number] 8 : 1990 Acct:[id number] Age/Sex: 33 / F ADM Date: 10/08/23 Loc: MR Room: Type: [facility] Attending Dr: Gwen Cox DO Copies to: [...] Ivan Holliday M.D.10/08/2023 4:38 PM Dictation Location: [place] [address] Transcribed By: LAMINE 10/08/23 1638 Dictated By: Ivan Holliday II, MD 10/08/23 1630 Signed By: 10/08/23 1638 Normal [facility] HCG ( test) IA.rapi d Ql (U)on 10-06-2023 HCG ( test) Ql (U) Negative NEGATIVE [facility] COVID + FLU Quick Testingon 07-07-2023 SARS-CoV-2 (COVID-19) RNA SURI+probe Ql (Unsp spec) Negative [facility] [employer] Other COVID + FLU Quick Testing Negative [employer] [facility] [employer] Other Alanine aminotransferase [En zymatic activity/volume] in Serum or PlasmaOrdered By: Celio Mullins on 07-03-2023 ALT [Catalytic activity/Vol] 22 U/L Normal 7-52 [facility] Comment on above: Performed By: #### C MP, LIPID #### [facility] [address] [place] [address] [place] Albumin [Mass/volume] in Ser um or Plasma by Bromocresol green (BCG) dye binding methoOrdered By: Celio Mullins on 07-03-2023 Albumin BCG dye [Mass/Vol] 4.4 g/dL 3.5-5.7 [facility] Alkaline phosphatase [Enzyma tic activity/volume] in Serum or PlasmaOrdered By: Celio Mullins on 07-03-2023 ALP [Catalytic activity/Vol] 68 U/L Normal 34-104 [facility] Comment on above: Performed By: #### C MP, LIPID #### [facility] [address] [place] [id number] [place] Aspartate aminotransferase [ Enzymatic activity/volume] in Serum or PlasmaOrdered By: Celio Mullins on 07-03-2023 AST [Catalytic activity/Vol] 18 U/L Normal 13-39 [facility] Comment on above: Performed By: #### C MP, LIPID #### [facility] [address] [place] [address] [place] Bilirubin.total [Mass/volume ] in Serum or PlasmaOrdered By: Celio Mullins on 07-03-2023 Bilirubin [Mass/Vol] 0.4 mg/dL Normal 0.3-1.0 [facility] Comment on above: Performed By: #### C MP, LIPID #### [facility] [address] [place] [address] [place] Calcium [Mass/volume] in Ser um or PlasmaOrdered By: Celio Mullins on 07-03-2023 Calcium [Mass/Vol] 9.4 mg/dL Normal 8.6-10.3 [facility] Comment on above: Performed By: #### C MP, LIPID #### [facility] [address] [place] [address] [place] Carbon dioxide, total [Moles /volume] in Serum or PlasmaOrdered By: Celio Mullins on 07-03-2023 CO2 [Moles/Vol] 30.1 mmol/L Normal 21.0-31.0 [facility] Comment on above: Performed By: #### C MP, LIPID #### [facility] [address] [place] [address] [place] Chloride [Moles/volume] in S marta or PlasmaOrdered By: Celio Mullins on 07-03-2023 Chloride [Moles/Vol] 105 mmol/L Normal 98-107 [facility] Comment on above: Performed By: #### C MP, LIPID #### [facility] [address] [place] [address] [place] Cholesterol [Mass/volume] in Serum or PlasmaOrdered By: Celio Mullins on 07-03-2023 Cholesterol [Mass/Vol] 126 mg/dL Low 140-200 [facility] Comment on above: Chol less than 200 m g/dl low riskChol 201-239 mg/dl borderline riskChol 240 mg/dl and greater high risk Result Comment: Chol less than 200 mg/dl low risk Chol 201-239 mg/dl borderline risk Chol 240 mg/dl and greater high risk Performed By: #### C MP, LIPID #### [facility] [address] [place] [id number] [place] Cholesterol in LDL Calc [Mas s/Vol]Ordered By: Celio Mullins on 07-03-2023 Cholesterol in LDL [Mass/Vol] 69 mg/dL 0-100 [facility] Comment on above: LDL ATP III CLASSIFI CATIONLDL less than 100 mg/dL OptimalLDL 100-129 mg/dL Near or above optimalLDL 130-159 mg/dL Borderline highLDL 160-189 mg/dL HighLDL greater than 189 mg/dL Very high Cholesterol in VLDL Calc [Ma ss/Vol]Ordered By: Celio Mullins on 07-03-2023 Cholesterol in VLDL [Mass/Vol] 18 mg/dL [facility] Comprehensive Metabolic Pane landon 07-03-2023 Albumin [Mass/Vol] 4.4 g/dL Normal 3.5-5.7 [facility] Comment on above: Performed By: #### C MP, LIPID #### [facility] [address] [place] [id number] [place] GFR/1.73 sq M.predicted MDRD (S/P/Bld) [Vol rate/Area] mL/min/{1.73_m2} Normal [facility] Comment on above: Performed By: #### C MP, LIPID #### [facility] [address] [place] [id number] [place] Creatinine [Mass/volume] in Serum or PlasmaOrdered By: Celio Mullins on 07-03-2023 Creatinine [Mass/Vol] 0.63 mg/dL Normal 0.60-1.20 [facility] Comment on above: Performed By: #### C MP, LIPID #### [facility] [address] [place] [id number] [place] Glucose [Mass/volume] in Ser um or PlasmaOrdered By: Celio Mullins on 07-03-2023 Glucose [Mass/Vol] 97 mg/dL Normal 70-100 [facility] Comment on above: ADA recommended refe rence rangeRandom Glucose Reference Range is dependent on time and content of last meal. Glucose of more than 200 mg/dL in a nonstressed, ambulatory subject supports the diagnosis of Diabetes Mellitus. Result Comment: [facility] Glucose Reference Range is dependent on time and content of last meal. Glucose of more than 200 mg/dL in a nonstressed, ambulatory subject supports the diagnosis of Diabetes Mellitus. ADA recommended reference range Performed By: #### C MP, LIPID #### [address] Lipid Panelon 07-03-2023 LDL Cholesterol,Calculated 69 mg/dL Normal 0-100 [facility] Comment on above: Result Comment: LDL ATP III CLASSIFICATION LDL less than 100 mg/dL Optimal LDL 100-129 mg/dL Near or above optimal LDL 130-159 mg/dL Borderline high LDL 160-189 mg/dL High LDL greater than 189 mg/dL Very high Performed By: #### C MP, LIPID #### [address] Triglyceride w/Reflex 92 mg/dL Normal 0-149 [facility] Comment on above: Result Comment: TRIG ATP III CLASSIFICATION TRIG less than 150 mg/dL Normal TRIG 150-199 mg/dL Borderline high TRIG 200-500 mg/dL High TRIG greater than 500 mg/dL Very high Standard traceable to the Center for Disease Conrtrol and Prevention (CDC) test method. Performed By: #### C MP, LIPID #### [address] VLDL CHOLESTEROL 18 mg/dL Normal [facility] Comment on above: Performed By: #### C MP, LIPID #### [address] No Panel InformationOrdered By: Celio Mullins on 07-03-2023 Estimated GFR (CKD-EPI) > 60.0 mL/Min [facility] Creatinine Clearance (Chem N/A [facility] Potassium [Moles/volume] in Serum or PlasmaOrdered By: Celio Mullins on 07-03-2023 Potassium [Moles/Vol] 4.3 mmol/L Normal 3.5-5.1 [facility] Comment on above: Performed By: #### C MP, LIPID #### [address] [place] [address] [place] Protein [Mass/volume] in Ser um or PlasmaOrdered By: Celio Mullins on 07-03-2023 Protein [Mass/Vol] 7.5 g/dL Normal 6.4-8.9 [facility] Comment on above: Performed By: #### C MP, LIPID #### [address] Serum globulin measurement b y calculation (mass/volume)Ordered By: Celio Mullins on 07-03-2023 Globulin (S) [Mass/Vol] 3.1 g/dL Normal [facility] Comment on above: Performed By: #### C MP, LIPID #### [address] Serum or plasma albumin/glob ulin mass ratioOrdered By: Celio Mullins on 07-03-2023 Albumin/Globulin [Mass ratio] 1.4 {ratio} Normal [facility] Comment on above: Performed By: #### C MP, LIPID #### [address] Serum or plasma anion gap de terminationOrdered By: Celio Mullins on 07-03-2023 Anion gap [Moles/Vol] 10.2 mmol/L Normal 6.0-15.0 [facility] Comment on above: Performed By: #### C MP, LIPID #### [address] Serum or plasma high density lipoprotein (HDL) cholesterol measurementOrdered By: Celio Mullins on 07-03-2023 Cholesterol in HDL [Mass/Vol] 39 mg/dL Normal 23-92 [facility] Comment on above: HDL CHOL ATP-III CLA SSIFICATION Cardiovascular RiskHDL > or equal to 60 mg/dL LOWHDL < 40 mg/dL HIGH Result Comment: HDL CHOL ATP-III CLASSIFICATION Cardiovascular Risk HDL > or equal to 60 mg/dL LOW HDL < 40 mg/dL HIGH Performed By: #### C MP, LIPID #### [address] Serum or plasma total choles terol/high density lipoprotein (HDL) cholesterol mass ratOrdered By: Celio Mullins on 07-03-2023 Cholesterol.total/Choles terol in HDL [Mass ratio] 3.2 {ratio} Normal <5.0 [facility] Comment on above: Result Comment: PERF ORMED BY: [place] [address] PATHOLOGIST CURTAIN CLEANER NESHA MAIER M.D. Performed By: #### C MP, LIPID #### [facility] [address] Sodium [Moles/volume] in Ser um or PlasmaOrdered By: Celio Mullins on 07-03-2023 Sodium [Moles/Vol] 141 mmol/L Normal 136-145 [facility] Comment on above: Performed By: #### C MP, LIPID #### [facility] [address] [place] [address] [facility] Triglyceride [Mass/volume] i n Serum or PlasmaOrdered By: Celio Mullins on 07-03-2023 Triglyceride [Mass/Vol] 92 mg/dL 0-149 [facility] Comment on above: TRIG ATP III CLASSIF ICATIONTRIG less than 150 mg/dL NormalTRIG 150-199 mg/dL Borderline highTRIG 200-500 mg/dL High TRIG greater than 500 mg/dL Very highStandard traceable to the Center for Disease Conrtrol and Prevention (CDC) test method. Urea nitrogen [Mass/volume] in Serum or PlasmaOrdered By: Celio Mullins on 07-03-2023 Urea nitrogen [Mass/Vol] 13 mg/dL Normal 7-25 [facility] Comment on above: Performed By: #### C MP, LIPID #### [facility] [address] [place] [address] [place] A1C with Estimated Average G luon 07-01-2023 Glucose [Mass/Vol] 117 mg/dL Normal [facility] Comment on above: Order Comment: Reaso n for Exam Severe obesity (BMI >= 40);PCOS (polycystic ovarian syndrome Result Comment: PERF ORMED BY: [address] [address] PATHOLOGIST CURTAIN CLEANER NESHA MAIER M.D. Performed By: #### L IPA, APOB #### [facility] , #### CMP, A1C WT eA #### [facility] [address] [place] [address] [place] Alanine aminotransferase [En zymatic activity/volume] in Serum or PlasmaOrdered By: Celio Mullins on 07-01-2023 ALT [Catalytic activity/Vol] 21 U/L Normal 7-52 [facility] Comment on above: Order Comment: Reaso n for Exam Severe obesity (BMI >= 40);PCOS (polycystic ovarian syndrome NON FASTING Performed By: #### L IPA, APOB #### [facility] , #### CMP, A1C [facility] eA #### [facility] [address] [place] [address] [place] Albumin [Mass/volume] in Ser um or Plasma by Bromocresol green (BCG) dye binding methoOrdered By: Celio Mullins on 07-01-2023 Albumin BCG dye [Mass/Vol] 4.6 g/dL 3.5-5.7 [facility] Alkaline phosphatase [Enzyma tic activity/volume] in Serum or PlasmaOrdered By: Celio Mullins on 07-01-2023 ALP [Catalytic activity/Vol] 72 U/L Normal 34-104 [facility] Comment on above: Order Comment: Reaso n for Exam Severe obesity (BMI >= 40);PCOS (polycystic ovarian syndrome NON FASTING Result Comment: PERF ORMED BY: [place] [address] PATHOLOGIST CURTAIN CLEANER NESHA MAIER M.D. Performed By: #### L IPA, APOB #### [facility] , #### CMP, A1C [facility] eA #### [facility] [address] [place] [address] [place] Apolipoprotein B [Mass/volum e] in Serum or PlasmaOrdered By: Celio Mullins on 07-01-2023 Apolipoprotein B [Mass/Vol] 83 mg/dL Normal <90 [facility] Comment on above: Desirable < 90 Charissa almanza High 90 - 99 High 100 - 130 Very High >130 ASCVD RISK THERAPEUTIC TARGET CATEGORY APO B (mg/dL) Very High Risk <80 (if extreme risk <70) High Risk <90 Moderate Risk <90Performed at: - [employer] [id number] Director: Jeanna Case MD, Phone: [phone] Order Comment: Reaso n for Exam Severe obesity (BMI >= 40);PCOS (polycystic ovarian syndrome Result Comment: Hedy rabzach < 90 Borderline High 90 - 99 High 100 - 130 Very High >130 ASCVD RISK THERAPEUTIC TARGET CATEGORY APO B (mg/dL) Very High Risk <80 (if extreme risk <70) High Risk <90 Moderate Risk <90 Performed at: [address] [id number] [employer]: Jeanna Case MD, Phone: [phone] PERFORMED BY: [place] [address] PATHOLOGIST CURTAIN CLEANER NESHA MAIER M.D. Performed By: #### L IPA, APOB #### [facility] , #### CMP, A1C [facility] eA #### [address] Aspartate aminotransferase [ Enzymatic activity/volume] in Serum or PlasmaOrdered By: Celio Mullins on 07-01-2023 AST [Catalytic activity/Vol] 19 U/L Normal 13-39 [facility] Comment on above: Order Comment: Reaso n for Exam Severe obesity (BMI >= 40);PCOS (polycystic ovarian syndrome NON FASTING Performed By: #### L IPA, APOB #### [facility] , #### CMP, A1C WT eA #### [facility] [address] [place] [id number] [place] Bilirubin.total [Mass/volume ] in Serum or PlasmaOrdered By: Celio Mullins on 07-01-2023 Bilirubin [Mass/Vol] 0.4 mg/dL Normal 0.3-1.0 [facility] Comment on above: Order Comment: Reaso n for Exam Severe obesity (BMI >= 40);PCOS (polycystic ovarian syndrome NON FASTING Performed By: #### L IPA, APOB #### [facility] , #### CMP, A1C WTH eA #### [facility] [address] [place] [id number] [place] Calcium [Mass/volume] in Ser um or PlasmaOrdered By: Celio Mullins on 07-01-2023 Calcium [Mass/Vol] 9.8 mg/dL Normal 8.6-10.3 [facility] Comment on above: Order Comment: Reaso n for Exam Severe obesity (BMI >= 40);PCOS (polycystic ovarian syndrome NON FASTING Performed By: #### L IPA, APOB #### [facility] , #### CMP, A1C WTH eA #### [facility] [address] [place] [address] [place] Carbon dioxide, total [Moles /volume] in Serum or PlasmaOrdered By: Celio Mullins on 07-01-2023 CO2 [Moles/Vol] 25.3 mmol/L Normal 21.0-31.0 [facility] Comment on above: Order Comment: Reaso n for Exam Severe obesity (BMI >= 40);PCOS (polycystic ovarian syndrome NON FASTING Performed By: #### L IPA, APOB #### [facility] , #### CMP, A1C WTH eA #### [facility] [address] [place] [id number] [place] Chloride [Moles/volume] in S marta or PlasmaOrdered By: Celio Mullins on 07-01-2023 Chloride [Moles/Vol] 105 mmol/L Normal 98-107 [facility] Comment on above: Order Comment: Reaso n for Exam Severe obesity (BMI >= 40);PCOS (polycystic ovarian syndrome NON FASTING Performed By: #### L IPA, APOB #### [facility] , #### CMP, A1C WTH eA #### [facility] [address] [id number] [place] Comprehensive Metabolic Pane landon 07-01-2023 Albumin [Mass/Vol] 4.6 g/dL Normal 3.5-5.7 [facility] Comment on above: Order Comment: Reaso n for Exam Severe obesity (BMI >= 40);PCOS (polycystic ovarian syndrome NON FASTING Performed By: #### L IPA, APOB #### [facility] , #### CMP, A1C WTH eA #### [facility] [address] [place] [address] [place] GFR/1.73 sq M.predicted MDRD (S/P/Bld) [Vol rate/Area] mL/min/{1.73_m2} Normal [facility] Comment on above: Order Comment: Reaso n for Exam Severe obesity (BMI >= 40);PCOS (polycystic ovarian syndrome NON FASTING Performed By: #### L IPA, APOB #### [facility] , #### CMP, A1C WT eA #### [facility] [address] [id number] [place] Creatinine [Mass/volume] in Serum or PlasmaOrdered By: Celio Mullins on 07-01-2023 Creatinine [Mass/Vol] 0.64 mg/dL Normal 0.60-1.20 [facility] Comment on above: Order Comment: Reaso n for Exam Severe obesity (BMI >= 40);PCOS (polycystic ovarian syndrome NON FASTING Performed By: #### L IPA, APOB #### [facility] , #### CMP, A1C WTH eA #### [facility] [address] [id number] [place] Glucose [Mass/volume] in Ser um or PlasmaOrdered By: Celio Mullins on 07-01-2023 Glucose [Mass/Vol] 95 mg/dL Normal 70-100 [facility] Comment on above: ADA recommended refe rence rangeRandom Glucose Reference Range is dependent on time and content of last meal. Glucose of more than 200 mg/dL in a nonstressed, ambulatory subject supports the diagnosis of Diabetes Mellitus. Order Comment: Michela n for Exam Severe obesity (BMI >= 40);PCOS (polycystic ovarian syndrome NON FASTING Result Comment: [place] om Glucose Reference Range is dependent on time and content of last meal. Glucose of more than 200 mg/dL in a nonstressed, ambulatory subject supports the diagnosis of Diabetes Mellitus. ADA recommended reference range Performed By: #### L IPA, APOB #### [facility] , #### CMP, A1C WTH eA #### [facility] [address] [id number] [facility] Glucose mean value [Mass/vol ume] in Blood Estimated from glycated hemoglobinOrdered By: Celio Mullins on 07-01-2023 Average glucose Estimated from glycated hemoglobin (Bld) [Mass/Vol] 117 mg/dL [facility] Hemoglobin A1c percentageOrd ered By: Celio Mullins on 07-01-2023 HbA1c (Bld) [Mass fraction] 5.7 % High 4.3-5.6 [facility] Comment on above: Increased risk [...] , #### CMP, A1C WTH eA #### [facility] [address] [id number] [place] Lipoprotein (a)on 07-01-2023 Lipoprotein a [Mass/Vol] 13.0 mg/dL Normal <75.0 [facility] Comment on above: Order [...] Lp(a) across ethnicities. Performed at: - [facility] [address] [id number] [employer]: Cassius Zhong PhD, Phone: [phone] Performed By: #### L IPA, APOB #### [facility] , #### CMP, A1C WTH eA #### [facility] [address] No Panel InformationOrdered By: Celio Mullins on 07-01-2023 Estimated GFR (CKD-EPI) > 60.0 mL/Min [facility] Creatinine Clearance (Chem N/A [facility] Potassium [Moles/volume] in Serum or PlasmaOrdered By: Celio Mullins on 07-01-2023 Potassium [Moles/Vol] 3.8 mmol/L Normal 3.5-5.1 [facility] Comment on above: Order Comment: Reaso n for Exam Severe obesity (BMI >= 40);PCOS (polycystic ovarian syndrome NON FASTING Performed By: #### L IPA, APOB #### [facility] , #### CMP, A1C WTH eA #### [facility] [address] [place] [address] Protein [Mass/volume] in Ser um or PlasmaOrdered By: Celio Mullins on 07-01-2023 Protein [Mass/Vol] 7.8 g/dL Normal 6.4-8.9 [facility] Comment on above: Order Comment: Reaso n for Exam Severe obesity (BMI >= 40);PCOS (polycystic ovarian syndrome NON FASTING Performed By: #### L IPA, APOB #### [facility] , #### CMP, A1C WTH eA #### [facility] [address] Serum globulin measurement b y calculation (mass/volume)Ordered By: Celio Mullins on 07-01-2023 Globulin (S) [Mass/Vol] 3.2 g/dL Normal [facility] Comment on above: Order Comment: Reaso n for Exam Severe obesity (BMI >= 40);PCOS (polycystic ovarian syndrome NON FASTING Performed By: #### L IPA, APOB #### [facility] , #### CMP, A1C WT eA #### [address] Serum or plasma albumin/glob ulin mass ratioOrdered By: Celio Mullins on 07-01-2023 Albumin/Globulin [Mass ratio] 1.4 {ratio} Normal [facility] Comment on above: Order Comment: Reaso n for Exam Severe obesity (BMI >= 40);PCOS (polycystic ovarian syndrome NON FASTING Performed By: #### L IPA, APOB #### [facility] , #### CMP, A1C [facility] eA #### [address] Serum or plasma anion gap de terminationOrdered By: Celio Mullins on 07-01-2023 Anion gap [Moles/Vol] 11.5 mmol/L Normal 6.0-15.0 [facility] Comment on above: Order Comment: Reaso n for Exam Severe obesity (BMI >= 40);PCOS (polycystic ovarian syndrome NON FASTING Performed By: #### L IPA, APOB #### [facility] , #### CMP, A1C [facility] eA #### [address] Serum or plasma lipoprotein a measurement (moles/volume)Ordered By: Celio Mullins on 07-01-2023 Lipoprotein a [Moles/Vol] 13.0 nmol/L <75.0 [facility] Comment on above: Note: Values greater than or equal to 75.0 nmol/L may indicate an independent risk factor for CHD, but must be evaluated with caution when applied to non- populations due to the influence of genetic factors on Lp(a) across ethnicities.Performed at: [facility] [id number] Director: Cassius Zhong PhD, Phone: [phone] Sodium [Moles/volume] in Ser um or PlasmaOrdered By: Celio Mullins on 07-01-2023 Sodium [Moles/Vol] 138 mmol/L Normal 136-145 [facility] Comment on above: Order Comment: Reaso n for Exam Severe obesity (BMI >= 40);PCOS (polycystic ovarian syndrome NON FASTING Performed By: #### L IPA, APOB #### [facility] , #### CMP, A1C WTH eA #### [facility] [address] Urea nitrogen [Mass/volume] in Serum or PlasmaOrdered By: Celio Mullins on 07-01-2023 Urea nitrogen [Mass/Vol] 16 mg/dL Normal 7-25 [facility] Comment on above: Order Comment: Reaso n for Exam Severe obesity (BMI >= 40);PCOS (polycystic ovarian syndrome NON FASTING Performed By: #### L IPA, APOB #### [facility] , #### CMP, A1C WTH eA #### [facility] [address] [id number] [facility] COVID Quick Testingon 2022 Result Negative [facility] Other SARS-CoV-2 (COVID-19) RNA NA A+probe Ql (Resp)on 02-11-2023 SARS-CoV-2 (COVID-19) RNA SURI+probe Ql (Unsp spec) Negative [facility] Other DHEA-SULFATEon 01-01-2023 DHEA-Sulfate 95.3 ug/dL Normal 84.8-378.0 [facility] Comment on above: Performed By: #### D RIMA #### [facility] [address] [address] [address] Kaushik Palomares FSHon 01-01-2023 FSH 4.6 mIU/mL Normal [facility] Comment on above: Result Comment: Adul t Female: Follicular phase 3.5 - 12.5 Ovulation phase 4.7 - 21.5 Luteal phase 1.7 - 7.7 Postmenopausal 25.8 - 134.8 Performed By: #### C BC #### [facility] [address] [address] [address] Kaushik Palomares LUTEINIZING HORMONE (LH)on 01-01-2023 LH 3.5 mIU/mL Normal [facility] Comment on above: Result Comment: Adul t Female: Follicular phase 2.4 - 12.6 Ovulation phase 14.0 - 95.6 Luteal phase 1.0 - 11.4 Postmenopausal 7.7 - 58.5 Performed By: #### L BCLH #### [facility] [address] [place] [address] Dr. Kaushik Palomares CBC AUTO DIFFon 12-31-2022 BASO # 0.1 103/ul Normal 0.0-0.1 [facility] Comment on above: Performed By: #### C BC #### [facility] [address] [place] [address] Dr. Kaushik Palomares Basophils/100 WBC (Bld) 0.8 % Normal 0.2-2.0 [facility] Comment on above: Performed By: #### C BC #### [facility] [address] [place] [address] Dr. Kaushik Palomares EO # 0.1 103/ul Normal 0.0-0.7 [facility] Comment on above: Performed By: #### C BC #### [facility] [address] [place] [address] Dr. Kaushik Palomares Eosinophils/100 WBC (Bld) 1.7 % Normal 0.9-7.0 [facility] Comment on above: Performed By: #### C BC #### [facility] [address] [place] [address] Dr. Kaushik Palomares Erythrocyte distribution width (RBC) [Ratio] 12.8 % Normal 11.0-15.0 [facility] Comment on above: Performed By: #### C BC #### [facility] [address] [place] [address] Dr. Kaushik Palomares Hematocrit (Bld) [Volume fraction] 33.0 % Critically low 36.0-48.0 [facility] Comment on above: Performed By: #### C BC #### [facility] [address] [place] [address] Dr. Kaushik Palomares Hemoglobin (Bld) [Mass/Vol] 11.0 g/dL Critically low 12.0-16.0 [facility] Comment on above: Performed By: #### C BC #### [facility] [address] [place] [address] Dr. Kaushik Palomares IG # 0.03 10e3/ul Normal 0.00-0.03 [facility] Comment on above: Performed By: #### C BC #### [facility] [address] [place] [address] Dr. Kaushik Palomares IG % 0.5 % Normal 0.0-0.5 [facility] Comment on above: Performed By: #### C BC #### [facility] [address] [place] [address] Dr. Kaushik Palomares LYMPH # 2.4 103/ul Normal 1.2-3.8 [facility] Comment on above: Performed By: #### C BC #### [facility] [address] [place] [address] Dr. Kaushik Palomares Lymphocytes/100 WBC (Bld) 36.6 % Normal 20.5-60.0 [facility] Comment on above: Performed By: #### C BC #### [facility] [address] [place] [address] Dr. Kaushik Palomares MANUAL DIFF REQ NO Normal [facility] Comment on above: Performed By: #### C BC #### [facility] [address] [place] [address] Dr. Kaushik Palomares MCH (RBC) [Entitic mass] 29.0 pg Normal 26.7-34.0 [facility] Comment on above: Performed By: #### C BC #### [facility] [address] [place] [address] Dr. Kaushik Palomares MCHC (RBC) [Mass/Vol] 33.3 g/dL Normal 29.9-35.2 [facility] Comment on above: Performed By: #### C BC #### [facility] [address] [place] [address] Dr. Kaushik Palomares MCV (RBC) [Entitic vol] 87.1 fL Normal 81.0-99.0 [facility] Comment on above: Performed By: #### C BC #### [facility] [address] [place] [address] Dr. Kaushik Palomares MONO # 0.2 103/ul Critically low 0.3-0.8 [facility] Comment on above: Performed By: #### C BC #### [facility] [address] [address] [address] Kaushik Palomares Monocytes/100 WBC (Bld) 3.6 % Normal 1.7-12.0 [facility] Comment on above: Performed By: #### C BC #### [facility] [address] [place] [address] Dr. Kaushik Palomares NEUT # 3.7 103/ul Normal 1.4-6.5 [facility] Comment on above: Performed By: #### C BC #### [facility] [address] [place] [address] Dr. Kaushik Palomares Neutrophils/100 WBC (Bld) 56.8 % Normal 43.0-75.0 [facility] Comment on above: Performed By: #### C BC #### [facility] [address] [place] [address] Dr. Kaushik Palomares Platelet mean volume (Bld) [Entitic vol] 9.8 fL Normal 9.5-13.5 [facility] Comment on above: Performed By: #### C BC #### [facility] [address] [place] [address] Dr. Kaushik Palomares PLT 234 103/ul Normal 150-450 [facility] Comment on above: Performed By: #### C BC #### [facility] [address] [place] [address] Dr. Kaushik Palomares RBC 3.79 106/ul Critically low 4.20-5.40 [facility] Comment on above: Performed By: #### C BC #### [facility] [address] [place] [address] Dr. Kaushik Palomares WBC 6.5 103/ul Normal 4.0-11.0 [facility] Comment on above: Performed By: #### C BC #### [facility] [address] [address] [address] Kaushik Palomares FREE T4on 12-31-2022 Free T4 [Mass/Vol] 0.79 ng/dL Normal 0.76-1.46 [facility] Comment on above: Performed By: #### F T4 #### [facility] [address] [place] [address] Dr. Kaushik Palomares GLYCOHEMOGLOBIN A1Con 2022 ADA RECOMMENDATION SEE BELOW Normal [facility] Comment on above: Result Comment: ADA RECOMMENDED LIMIT 4.0 - 6.0 ADA THERAPEUTIC TARGET < 7.0 ACTION SUGGESTED > 7.0 Performed By: #### A 1C #### [facility] [address] [place] [address] Dr. Kaushik Palomares Glucose [Mass/Vol] 111 mg/dL Normal [facility] Comment on above: Performed By: #### A 1C #### [facility] [address] [place] [address] Dr. Kaushik Palomares HbA1c (Bld) [Mass fraction] 5.5 % Normal 4.5-6.2 [facility] Comment on above: Performed By: #### A 1C #### [facility] [address] [place] [address] Dr. Kaushik Palomares TSHon 12-31-2022 TSH 1.114 uIU/mL Normal 0.358-3.740 [facility] Comment on above: Performed By: #### C BC #### [facility] [address] [place] [address] Dr. Kaushik Palomares US PELVIS AND TRANSVAGon [...] SUGEY MACDONALD Date: 2022-11-26 15:58 Normal [facility] XR SACRUM_COCCYXon 3 XR SACRUM_COCCYX EXAMINATION: [...] SUGEY MACDONALD Date: 2022-11-08 10:01 Normal [facility] PAP ACOG PANEL 2: 30 to 65on 11-05-2022 . . Normal [facility] Comment on above: Result Comment: Perf ormed at: WB Performed By: #### C BC #### [facility] [address] [address] [address] Kaushik Palomares Age Gdln ACOG Testing 30-65 Normal [facility] Comment on above: Performed By: #### C BC #### [facility] [address] [address] [address] Kaushik Palomares DIAGNOSIS: Comment Normal [facility] Comment on above: Result Comment: NEGA TIVE FOR INTRAEPITHELIAL LESION OR MALIGNANCY. Performed at: WB Performed By: #### C BC #### [facility] [address] [place] [address] Dr. Kaushik Palomares HPV Aptima Negative Normal Negative [facility] Comment on above: Result Comment: This nucleic acid amplification test detects fourteen high-risk HPV types (16,18,31,33,35,39,45,51,52,56,58,59,66,68) without differentiation. Performed at: =G Performed By: #### C BC #### [facility] [address] [place] [address] Dr. Kaushik Palomares HPV Genotype Reflex Comment Normal [facility] Comment on above: Result Comment: Crit eria not met, HPV Genotype not performed. Performed at: WB Performed By: #### C BC #### [facility] [address] [place] [address] Dr. Kaushik Palomares Methodology: Comment Normal [facility] Comment on above: Result Comment: This liquid based ThinPrep(R) pap test was screened with the use of an image guided system. Performed at: WB Performed By: #### C BC #### [facility] [address] [place] [address] Dr. Kaushik Palomares Note: Comment Normal [facility] Comment on above: Result Comment: The [...] WB Performed By: #### C BC #### [facility] [address] [place] [address] Dr. Kaushik Palomares Performed by: Comment Normal [facility] Comment on above: Result Comment: Robi Graham, Die Attaching Machine Tender (ASCP) Performed at: WB Performed By: #### C BC #### [facility] [address] [place] [address] Dr. Kaushik Palomares Specimen adequacy: Comment Normal [facility] Comment on above: Result Comment: Sati sfactory for evaluation. Endocervical and/or squamous metaplastic cells (endocervical component) are present. Performed at: WB Performed By: #### C BC #### [facility] [address] [place] [address] Dr. Kaushik Palomares COVID/FLU RT-PCRon 2 SARS-CoV-2 (COVID-19) RNA SURI+probe Ql (Unsp spec) Negative [facility] Other COVID/FLU RT-PCR Negative [employer] Other HCG-BETA SUBUNIT QUANTon hCG,Beta Subunit,Qnt,Serum <1 Normal [facility] Comment on above: Result Comment: Fema le (Non-) 0 - 5 (Postmenopausal) 0 - 8 . Female () Weeks of Gestation 3 6 - 71 4 10 - 750 5 385 - 9967 6 986 - 90843 7 3818 -[phone] 8 33902 -320971 9 05290 -605755 10 43140 -223608 12 61632 -145054 14 74518 - 63320 15 29131 - 29546 16 2078 - 32801 17 7530 - 09028 18 1293 - 01489 Rg ECLIA methodology Performed By: #### H CGSUB #### [facility] [address] [place] [address] Dr. Kaushik Palomares T4 LABCORPon 01-22-2022 T4 [Mass/Vol] 7.8 ug/dL Normal 4.5-12.0 [facility] Comment on above: Performed By: #### T 4LC #### [facility] [address] [place] [address] Dr. Kaushik Palomares CBC AUTO DIFFon 01-21-2022 BASO # 0.1 103/ul Normal 0.0-0.1 [facility] Comment on above: Performed By: #### C BC #### [facility] [address] [place] [address] Dr. Kaushik Palomares Basophils/100 WBC (Bld) 0.6 % Normal 0.2-2.0 [facility] Comment on above: Performed By: #### C BC #### [facility] [address] [place] [address] Dr. Kaushik Palomares EO # 0.1 103/ul Normal 0.0-0.7 [facility] Comment on above: Performed By: #### C BC #### [facility] [address] [place] [address] Dr. Kaushik Palomares Eosinophils/100 WBC (Bld) 1.2 % Normal 0.9-7.0 [facility] Comment on above: Performed By: #### C BC #### [facility] [address] [place] [address] Dr. Kaushik Palomares Erythrocyte distribution width (RBC) [Ratio] 13.3 % Normal 11.0-15.0 [facility] Comment on above: Performed By: #### C BC #### [facility] [address] [place] [address] Dr. Kaushik Palomares Hematocrit (Bld) [Volume fraction] 40.0 % Normal 36.0-48.0 [facility] Comment on above: Performed By: #### C BC #### [facility] [address] [place] [address] Dr. Kaushik Palomares Hemoglobin (Bld) [Mass/Vol] 12.7 g/dL Normal 12.0-16.0 [facility] Comment on above: Performed By: #### C BC #### [facility] [address] [place] [address] Dr. Kaushik Palomares IG # 0.02 10e3/ul Normal 0.00-0.03 [facility] Comment on above: Performed By: #### C BC #### [facility] [address] [place] [address] Dr. Kaushik Palomares IG % 0.2 % Normal 0.0-0.5 [facility] Comment on above: Performed By: #### C BC #### [facility] [address] [place] [address] Dr. Kaushki Palomares LYMPH # 3.0 103/ul Normal 1.2-3.8 [facility] Comment on above: Performed By: #### C BC #### [facility] [address] [place] [address] Dr. Kaushik Palomares Lymphocytes/100 WBC (Bld) 32.9 % Normal 20.5-60.0 [facility] Comment on above: Performed By: #### C BC #### [facility] [address] [place] [address] Dr. Kaushik Palomares MANUAL DIFF REQ NO Normal [facility] Comment on above: Performed By: #### C BC #### [facility] [address] [place] [address] Dr. Kaushik Palomares MCH (RBC) [Entitic mass] 28.5 pg Normal 26.7-34.0 [facility] Comment on above: Performed By: #### C BC #### [facility] [address] [place] [address] Dr. Kaushik Palomares MCHC (RBC) [Mass/Vol] 31.8 g/dL Normal 29.9-35.2 [facility] Comment on above: Performed By: #### C BC #### [facility] [address] [place] [address] Dr. Kaushik Palomares MCV (RBC) [Entitic vol] 89.7 fL Normal 81.0-99.0 [facility] Comment on above: Performed By: #### C BC #### [facility] [address] [place] [address] Dr. Kaushik Palomares MONO # 0.5 103/ul Normal 0.3-0.8 [facility] Comment on above: Performed By: #### C BC #### [facility] [address] [place] [address] Dr. Kaushik Palomares Monocytes/100 WBC (Bld) 5.1 % Normal 1.7-12.0 [facility] Comment on above: Performed By: #### C BC #### [facility] [address] [place] [address] Dr. Kaushik Palomares NEUT # 5.4 103/ul Normal 1.4-6.5 [facility] Comment on above: Performed By: #### C BC #### [facility] [address] [place] [address] Dr. Kaushik Palomares Neutrophils/100 WBC (Bld) 60.0 % Normal 43.0-75.0 [facility] Comment on above: Performed By: #### C BC #### [facility] [address] [place] [address] Dr. Kaushik Palomares Platelet mean volume (Bld) [Entitic vol] 9.3 fL Critically low 9.5-13.5 [facility] Comment on above: Performed By: #### C BC #### [facility] [address] [place] [address] Dr. Kaushik Palomares PLT 221 103/ul Normal 150-450 [facility] Comment on above: Performed By: #### C BC #### [facility] [address] [place] [address] Dr. Kaushik Palomares RBC 4.46 106/ul Normal 4.20-5.40 [facility] Comment on above: Performed By: #### C BC #### [facility] [address] [place] [address] Dr. Kaushik Palomares WBC 9.0 103/ul Normal 4.0-11.0 [facility] Comment on above: Performed By: #### C BC #### [facility] [address] [place] [address] Dr. Kaushik Palomares GLYCOHEMOGLOBIN A1Con 2021 ADA RECOMMENDATION SEE BELOW Normal [facility] Comment on above: Result Comment: ADA RECOMMENDED LIMIT 4.0 - 6.0 ADA THERAPEUTIC TARGET < 7.0 ACTION SUGGESTED > 7.0 Performed By: #### C BC #### [facility] [address] [place] [address] Dr. Kaushik Palomares Glucose [Mass/Vol] 94 mg/dL Normal [facility] Comment on above: Performed By: #### C BC #### [facility] [address] [place] [address] Dr. Kaushik Palomares HbA1c (Bld) [Mass fraction] 4.9 % Normal 4.5-6.2 [facility] Comment on above: Performed By: #### C BC #### [facility] [address] [place] [address] Dr. Kaushik Palomares LIPID PROFILEon 01-21-2022 CHOL-HDL RATIO NORM SEE BELOW Normal [facility] Comment on above: Result Comment: 3.3 - 4.4 LOW RISK 4.4 - 7.1 AVERAGE RISK 7.1 - 11.0 MODERATE RISK >11.0 HIGH RISK Performed By: #### L IPID, CMP, TSH #### [facility] [address] [address] [address] Kaushik Palomares Cholesterol [Mass/Vol] 168 mg/dL Normal <=200 [facility] Comment on above: Performed By: #### L IPID, CMP, TSH #### [facility] [address] [address] [address] Kaushik Palomares Cholesterol in HDL [Mass/Vol] 41 mg/dL Normal 40-60 [facility] Comment on above: Performed By: #### L IPID, CMP, TSH #### [facility] [address] [address] [address] Kaushik Palomares Cholesterol in LDL [Mass/Vol] 90.2 mg/dL Normal [facility] Comment on above: Performed By: #### L IPID, CMP, TSH #### [facility] [address] [address] [address] Kaushik Palomares Cholesterol.total/Choles terol in HDL [Mass ratio] 4.1 {ratio} Normal [facility] Comment on above: Performed By: #### L IPID, CMP, TSH #### [facility] [address] [address] [address] Kaushik Palomares HDL NORMAL > or = 60 mg/dl - LOW CARDIOVASCULAR RISK <40 mg/dl - HIGH CARDIOVASCULAR RISK Normal [facility] Comment on above: Performed By: #### L IPID, CMP, TSH #### [facility] [address] [address] [address] Kaushik Palomares LDL CALC NORMAL SEE BELOW Normal [facility] Comment on above: Result Comment: <100 mg/dl OPTIMAL 100 - 129 mg/dl NEAR OR ABOVE OPTIMAL 130 - 159 mg/dl BORDERLINE HIGH 160 - 189 mg/dl HIGH >190 mg/dl VERY HIGH Performed By: #### L IPID, CMP, TSH #### [facility] [address] [address] [address] Kaushik Palomares Triglyceride [Mass/Vol] 184 mg/dL Critically high <=150 [facility] Comment on above: Performed By: #### L IPID, CMP, TSH #### [facility] [address] [address] [address] Kaushik Palomares VLDL CALC 36.8 mg/dL Normal [facility] Comment on above: Performed By: #### L IPID, CMP, TSH #### [facility] [address] [address] [address] Kaushik Palomares MICROALBUMIN, RAND URon mALB 2.0 mg/L Normal <=30.0 [facility] Comment on above: Performed By: #### C BC #### [facility] [address] [place] [address] Dr. Kaushik Palomares PROF 14(COMP METB)on 022 Albumin [Mass/Vol] 3.7 g/dL Normal 3.4-5.[address] [facility] Comment on above: Performed By: #### L IPID, CMP, TSH #### [facility] [address] [address] [address] Kaushik Palomares Albumin/Globulin [Mass ratio] 0.9 {ratio} Normal [facility] Comment on above: Performed By: #### L IPID, CMP, TSH #### [facility] [address] [address] [address] Kaushik Palomares ALP [Catalytic activity/Vol] 53 U/L Normal 46-116 [facility] Comment on above: Performed By: #### L IPID, CMP, TSH #### [facility] [address] [address] [address] Kaushik Palomares ALT [Catalytic activity/Vol] 44 U/L Normal 14-59 [facility] Comment on above: Performed By: #### L IPID, CMP, TSH #### [facility] [address] [address] [address] Kaushik Palomares Anion gap [Moles/Vol] 6.8 mmol/L Normal [facility] Comment on above: Performed By: #### L IPID, CMP, TSH #### [facility] [address] [address] [address] Kaushik Palomares AST [Catalytic activity/Vol] 22 U/L Normal 15-37 [facility] Comment on above: Performed By: #### L IPID, CMP, TSH #### [facility] [address] [address] [address] Kaushik Palomares Bilirubin [Mass/Vol] 0.3 mg/dL Normal 0.2-1.0 [facility] Comment on above: Performed By: #### L IPID, CMP, TSH #### [facility] [address] [place] [address] Dr. Kaushik Palomares Calcium [Mass/Vol] 9.2 mg/dL Normal 8.5-10.1 [facility] Comment on above: Performed By: #### L IPID, CMP, TSH #### [facility] [address] [place] [address] Dr. Kaushik Palomares Chloride [Moles/Vol] 102 mmol/L Normal 98-107 [facility] Comment on above: Performed By: #### L IPID, CMP, TSH #### [facility] [address] [place] [address] Dr. Kaushik Palomares CO2 [Moles/Vol] 31.4 mmol/L Normal 21.0-32.0 [facility] Comment on above: Performed By: #### L IPID, CMP, TSH #### [facility] [address] [place] [address] Dr. Kaushik Palomares Creatinine [Mass/Vol] 0.71 mg/dL Normal 0.55-1.02 [facility] Comment on above: Performed By: #### L IPID, CMP, TSH #### [facility] [address] [place] [address] Dr. Kaushik Palomares EGFR-AF LATVIAN >60 Normal >=60 [facility] Comment on above: Performed By: #### L IPID, CMP, TSH #### [facility] [address] [place] [address] Dr. Kaushik Palomares EGFR-NON AF LATVIAN >60 Normal >=60 [facility] Comment on above: Performed By: #### L IPID, CMP, TSH #### [facility] [address] [address] [address] Kaushik Palomares Globulin (S) [Mass/Vol] 4.2 g/dL Normal [facility] Comment on above: Performed By: #### L IPID, CMP, TSH #### [facility] [address] [address] [address] Kaushik Palomares Glucose [Mass/Vol] 93 mg/dL Normal 74-[address] [facility] Comment on above: Performed By: #### L IPID, CMP, TSH #### [facility] [address] [place] [address] Dr. Kaushik Palomares Potassium [Moles/Vol] 4.2 mmol/L Normal 3.5-5.1 [facility] Comment on above: Performed By: #### L IPID, CMP, TSH #### [facility] [address] [place] [address] Dr. Kaushik Palomares Protein [Mass/Vol] 7.9 g/dL Normal 6.4-8.[address] [facility] Comment on above: Performed By: #### L IPID, CMP, TSH #### [facility] [address] [place] [address] Dr. Kaushik Palomares Sodium [Moles/Vol] 136 mmol/L Normal 136-[address] [facility] Comment on above: Performed By: #### L IPID, CMP, TSH #### [facility] [address] [place] [address] Dr. Kaushik Palomares Urea nitrogen [Mass/Vol] 11.0 mg/dL Normal 7.0-18.0 [facility] Comment on above: Performed By: #### L IPID, CMP, TSH #### [facility] [address] [place] [address] Dr. Kaushik Palomares Urea nitrogen/Creatinine [Mass ratio] 15.5 mg/mg Normal [facility] Comment on above: Performed By: #### L IPID, CMP, TSH #### [facility] [address] [place], [place] [address] Dr. Kaushik Palomares TSHon 01-21-2022 TSH 1.298 uIU/mL Normal 0.358-3.740 [facility] Comment on above: Performed By: #### C BC #### [facility] [address] [address] [address] Kaushik Palomares TSH RANGE SEE BELOW Normal [facility] Comment on above: Result Comment: <0.3 4 UIU/ml HYPERTHYROID 0.34-5.60 UIU/ml EUTHYROID >5.60 UIU/ml HYPOTHYROID Performed By: #### C BC #### [facility] [address] [address] [address] Kaushik Palomares COVID Quick Testingon 2020 Result Negative [facility] Other Quick Strepon 06-17-2021 S. pyogenes Org specific cx Ql (Throat) Negative [facility] Other Quick Strep [facility] Other Urinalysis - AUTOMATEDon Appearance (U) cloudy [facility] Other Bilirubin Ql (U) Negative [email or web address] Other Color (U) yellow [facility] Other Glucose Ql (U) Negative [facility] Other Hemoglobin Ql (U) large [employer] Other Ketones Ql (U) Negative [facility] Other Leukocyte esterase Test strip Ql (U) trace [facility] Other Nitrite Ql (U) Positive [facility] Other pH (U) 5.5 [pH] [facility] Other Protein Ql (U) 100 [facility] Other Specific gravity (U) [Rel density] 1.025 [facility] Other Urobilinogen (U) [Mass/Vol] 0.2 mg/dL [facility] Other Urinalysis - AUTOMATED No rt Barnacle Other Urine Cultureon 05-31-2021 Urine Culture >100,000 [facility] Other Urine Culture <16 [facility] Other Urine Culture >16 [facility] Other Urine Culture <4 [facility] Other Urine Culture 8 [facility] Other Urine Culture <2 [facility] Other Urine Culture <1 [facility] Other Urine Culture >2 [facility] Other Urine Culture <0.5 [facility] Other Urine Culture >8 [facility] Other Urine Culture >4 [facility] Other Urine Culture <32 [facility] Other Urine Culture >2/38 [facility] Other Vital Signs Date Time Vital Sign Value Performing Clinician Sharlenei pako 06-23-2024 12:21-0500 Body mass index (BMI) [Ratio] 57.47 kg/m2 [employer] Work Phone: [facility] [employer] 06-23-2024 12:21-0500 Body weight 151.86 kg [employer] Work Phone: [facility] [employer] 06-23-2024 12:21-0500 Diastolic blood pressure 81 mm[Hg] [employer] Work Phone: [facility] [employer] 06-23-2024 12:21-0500 Heart rate 104 /min [facility] Work Phone: [facility] 06-23-2024 12:21-0500 SaO2% (BldA) [Mass fraction] 95 % Gwen Daleett DO Work Phone: [facility] 06-23-2024 12:21-0500 Systolic blood pressure 132 mm[Hg] Gwen Cox DO Work Phone: [facility] 06-21-2024 11:18-0500 Body height 162.56 cm BIOLOGICAL CHEMISTBryon Marc Work Phone: [facility] 06-21-2024 11:18-0500 Body mass index (BMI) [Ratio] 57 kg/m2 BIOLOGICAL CHEMISTBryon Marc Work Phone: [facility] 06-21-2024 11:18-0500 Body temperature 97.3 [degF] BIOLOGICAL CHEMISTBryon Marc Work Phone: [facility] 06-21-2024 11:18-0500 Body weight 150.81 kg BIOLOGICAL CHEMISTBryon Marc Work Phone: [facility] 06-21-2024 11:18-0500 Diastolic blood pressure 88 mm[Hg] ROSITA Marc Work Phone: [facility] 06-21-2024 11:18-0500 Heart rate 135 /min BIOLOGICAL CHEMISTBryon Marc Work Phone: [facility] 06-21-2024 11:18-0500 SaO2% (BldA) [Mass fraction] 94 % BIOLOGICAL CHEMISTBryon Marc Work Phone: [facility] 06-21-2024 11:18-0500 Systolic blood pressure 136 mm[Hg] ROSITA Parksachetad Work Phone: [facility] 06-15-2024 09:29-0400 Body height 162.56 cm BIOLOGICAL CHEMISTBryon Marc Work Phone: [facility] 06-15-2024 09:29-0400 Body mass index (BMI) [Ratio] 57.9 kg/m2 BIOLOGICAL CHEMIST Manisha Charlyacher Work Phone: [facility] 06-15-2024 09:29-0400 Body temperature 97.5 [degF] BIOLOGICAL CHEMISTBryon Barclayrbacher Work Phone: [facility] 06-15-2024 09:29-0400 Body weight 152.97 kg BIOLOGICAL CHEMISTBryon ColladoManisha Denyrbacher Work Phone: [facility] 06-15-2024 09:29-0400 Diastolic blood pressure 88 mm[Hg] BIOLOGICAL CHEMISTBryon Parksacher Work Phone: [facility] 06-15-2024 09:29-0400 Heart rate 103 /min BIOLOGICAL CHEMISTBryon Parksacher Work Phone: [facility] 06-15-2024 09:29-0400 Respiratory rate 18 /min BIOLOGICAL CHEMIST Manisha Denyrbacher Work Phone: [facility] 06-15-2024 09:29-0400 SaO2% (BldA) [Mass fraction] 95 % BIOLOGICAL CHEMISTBryon ColladoManisha Denyrbacher Work Phone: [facility] 06-15-2024 09:29-0400 Systolic blood pressure 128 mm[Hg] BIOLOGICAL CHEMISTBryon Parksacher Work Phone: [facility] 04-21-2024 14:31-0400 Body height 162.56 cm BIOLOGICAL CHEMISTBryon Parksacher Work Phone: [facility] 04-21-2024 14:31-0400 Body mass index (BMI) [Ratio] 55 kg/m2 BIOLOGICAL CHEMISTBryon Barclayrbacher Work Phone: [facility] 04-21-2024 14:31-0400 Body weight 145.6 kg BIOLOGICAL CHEMISTBryon Parksacher Work Phone: [facility] 04-21-2024 14:31-0400 Diastolic blood pressure 88 mm[Hg] BIOLOGICAL CHEMIST Manisha Denyrbacher Work Phone: [facility] 04-21-2024 14:31-0400 Heart rate 111 /min BIOLOGICAL CHEMIST Manisha Denyrbacher Work Phone: [facility] 04-21-2024 14:31-0400 SaO2% (BldA) [Mass fraction] 97 % BIOLOGICAL CHEMIST Manisha Denyrbacher Work Phone: [facility] 04-21-2024 14:31-0400 Systolic blood pressure 136 mm[Hg] BIOLOGICAL CHEMISTBryon ColladoManisha Denyrbacher Work Phone: [facility] 11-26-2023 08:40-0400 Body height 162.56 cm BIOLOGICAL CHEMISTBryon Barclayrbacher Work Phone: [facility] 11-26-2023 08:40-0400 Body mass index (BMI) [Ratio] 52.9 kg/m2 BIOLOGICAL CHEMIST Manisha Denyrbacher Work Phone: [facility] 11-26-2023 08:40-0400 Body weight 139.79 kg BIOLOGICAL CHEMIST Manisha Denyrbacher Work Phone: [facility] 11-26-2023 08:40-0400 Diastolic blood pressure 79 mm[Hg] BIOLOGICAL CHEMISTBryon Braclayrbacher Work Phone: [facility] 11-26-2023 08:40-0400 Heart rate 97 /min BIOLOGICAL CHEMISTBryon Barclayrbacher Work Phone: [facility] 11-26-2023 08:40-0400 SaO2% (BldA) [Mass fraction] 99 % BIOLOGICAL CHEMISTBryon Barclayrbacher Work Phone: [facility] 11-26-2023 08:40-0400 Systolic blood pressure 131 mm[Hg] BIOLOGICAL CHEMISTBryon Barclayrbacher Work Phone: [facility] 11-03-2023 14:06-0400 Body height 162.56 cm BIOLOGICAL CHEMIST Manisha Denyrbacher Work Phone: [facility] 11-03-2023 14:06-0400 Body mass index (BMI) [Ratio] 53.1 kg/m2 BIOLOGICAL CHEMISTBryon ColladoManisha Denyrbacher Work Phone: [facility] 11-03-2023 14:06-0400 Body weight 140.61 kg BIOLOGICAL CHEMIST Manisha Denyrbacher Work Phone: [facility] 11-03-2023 14:06-0400 Diastolic blood pressure 78 mm[Hg] BIOLOGICAL CHEMISTBryon ColladoManisha Denyrbacher Work Phone: [facility] 11-03-2023 14:06-0400 Heart rate 105 /min BIOLOGICAL CHEMISTBryon Parksacher Work Phone: [facility] 11-03-2023 14:06-0400 SaO2% (BldA) [Mass fraction] 98 % BIOLOGICAL CHEMIST Manisha Denyrbacher Work Phone: [facility] 11-03-2023 14:06-0400 Systolic blood pressure 118 mm[Hg] BIOLOGICAL CHEMISTBryon ColladoManisha Denyrbacher Work Phone: [facility] 10-08-2023 10:50-0500 Body height 162.56 cm BIOLOGICAL CHEMISTBryon Parksacher Work Phone: [facility] 10-08-2023 10:50-0500 Body weight 139.25 kg BIOLOGICAL CHEMISTBryon Barclayrbacher Work Phone: [facility] 10-01-2023 09:20-0500 Body height 162.56 cm BIOLOGICAL CHEMISTBryon Barclayrbacher Work Phone: [facility] 10-01-2023 09:20-0500 Body mass index (BMI) [Ratio] 53.6 kg/m2 BIOLOGICAL CHEMISTBryon Barclayrbacher Work Phone: [facility] 10-01-2023 09:20-0500 Body weight 141.69 kg BIOLOGICAL CHEMIST Manisha Denyrbacher Work Phone: [facility] 10-01-2023 09:20-0500 Diastolic blood pressure 75 mm[Hg] BIOLOGICAL CHEMIST Manisha Denyrbacher Work Phone: [facility] 10-01-2023 09:20-0500 Heart rate 85 /min BIOLOGICAL CHEMISTBryon ThaoManisha Denyrbacher Work Phone: [facility] 10-01-2023 09:20-0500 Respiratory rate 18 /min BIOLOGICAL CHEMIST Manisha Denyrbacher Work Phone: [facility] 10-01-2023 09:20-0500 SaO2% (BldA) [Mass fraction] 99 % BIOLOGICAL CHEMISTBryon ColladoManisha Denyrbacher Work Phone: [facility] 10-01-2023 09:20-0500 Systolic blood pressure 123 mm[Hg] ROSITA Manisha Denyrbacher Work Phone: [facility] 09-03-2023 08:00-0500 Body height 162.56 cm BIOLOGICAL CHEMISTBryon ColladoManisha Denyrbacher Work Phone: [facility] 09-03-2023 08:00-0500 Body weight 138.79 kg BIOLOGICAL CHEMISTBryon ColladoManisha Denyrbacher Work Phone: [facility] 09-03-2023 08:00-0500 Diastolic blood pressure 78 mm[Hg] BIOLOGICAL CHEMISTBryon ColladoManisha Denyrbacher Work Phone: [facility] 09-03-2023 08:00-0500 Systolic blood pressure 118 mm[Hg] ROSITA Colladofer Denyrbacher Work Phone: [facility] 08-19-2023 09:45-0500 Body height 162.56 cm Nely Cruz Other [facility] 08-13-2023 14:00-0500 Body height 162.56 cm Manisha Marc Other [facility] 08-13-2023 14:00-0500 Body mass index (BMI) [Ratio] 52.35 kg/m2 Manisha Tari Other [facility] Other 08-13-2023 14:00-0500 Body weight 138.35 kg Manisha Marc Other [facility] Other 08-13-2023 14:00-0500 Body weight 138.34 kg BIOLOGICAL CHEMISTBryon Marc Work Phone: [facility] 08-13-2023 14:00-0500 Diastolic blood pressure 80 mm[Hg] Manisha Marc Other [facility] 08-13-2023 14:00-0500 SaO2% (BldA) [Mass fraction] 98 % Manisha Tari Other [facility] Other 08-13-2023 14:00-0500 Systolic blood pressure 114 mm[Hg] Manisha Marc Other [facility] 07-15-2023 07:45-0500 Body height 162.56 cm Celio [employer] Other [facility] 07-15-2023 07:45-0500 Body mass index (BMI) [Ratio] 52.98 kg/m2 Celio [employer] [place] Other [facility] Other 07-15-2023 07:45-0500 Body weight 140.03 kg Celio [employer] [place] Other [facility] Other 07-15-2023 07:45-0500 Body weight 140.02 kg ROSITA Marc Work Phone: [facility] 07-15-2023 07:45-0500 Diastolic blood pressure 66 mm[Hg] Celio Mullins Other [facility] 07-15-2023 07:45-0500 Respiratory rate 18 /min Celio Mullins Other [employer] [facility] [employer] Other 07-15-2023 07:45-0500 SaO2% (BldA) [Mass fraction] 98 % Celio Mullins Other [facility] [employer] Other 07-15-2023 07:45-0500 Systolic blood pressure 112 mm[Hg] Celio Mullins Other [facility] 07-07-2023 11:15-0500 Body height 162.56 cm Michelle Haynesmond Other [facility] 07-07-2023 11:15-0500 Body mass index (BMI) [Ratio] 52.69 kg/m2 Michelle Ernandez Other [facility] Other 07-07-2023 11:15-0500 Body temperature 98 [degF] Michelle Haynesmond Other [facility] Other 07-07-2023 11:15-0500 Body weight 139.26 kg Michelle Oma Other [facility] Other 07-07-2023 11:15-0500 Body weight 139.25 kg ROSITA Marc Work Phone: [facility] 07-07-2023 11:15-0500 Respiratory rate 20 /min Michelle Haynesmond Other [facility] Other 07-07-2023 11:15-0500 SaO2% (BldA) [Mass fraction] 98 % Michelle Ernandez Other [facility] Other 06-29-2023 10:20-0500 Body height 162.56 cm Michelle Ernandez Other [facility] Other 06-29-2023 10:20-0500 Body mass index (BMI) [Ratio] 53.03 kg/m2 Michelle Haynesmond Other [facility] Other 06-29-2023 10:20-0500 Body temperature 99.7 [degF] Michelle Ernandez Other [facility] Other 06-29-2023 10:20-0500 Body weight 140.16 kg Michelle Ernandez Other [facility] Other 06-29-2023 10:20-0500 Respiratory rate 19 /min Michelle Ernandez Other [facility] Other 06-29-2023 10:20-0500 SaO2% (BldA) [Mass fraction] 98 % Michelle Ernandez Other [facility] Other 06-11-2023 15:30-0400 Body height 162.56 cm Manisha Marc Other [facility] Other 06-11-2023 15:30-0400 Body mass index (BMI) [Ratio] 53.79 kg/m2 Manisha Marc Other [facility] Other 06-11-2023 15:30-0400 Body weight 142.16 kg Manisha Marc Other [facility] Other 06-11-2023 15:30-0400 Diastolic blood pressure 62 mm[Hg] Manisha Keanetad Other [facility] Other 06-11-2023 15:30-0400 SaO2% (BldA) [Mass fraction] 99 % Manisha Marc Other [facility] Other 06-11-2023 15:30-0400 Systolic blood pressure 126 mm[Hg] Manisha Marc Other [facility] Other 05-06-2023 13:40-0400 Body height 162.56 cm Casandra Hassan Other [facility] Other 05-06-2023 13:40-0400 Body mass index (BMI) [Ratio] 53.65 kg/m2 Casandra Hassan Other [facility] Other 05-06-2023 13:40-0400 Body temperature 98.4 [degF] Casandra Hassan Other [facility] Other 05-06-2023 13:40-0400 Body weight 141.8 kg Casandra Hassan Other [facility] Other 05-06-2023 13:40-0400 Diastolic blood pressure 81 mm[Hg] Casandra Hassan Other [facility] Other 05-06-2023 13:40-0400 Respiratory rate 18 /min Casandra Hassan Other [facility] Other 05-06-2023 13:40-0400 SaO2% (BldA) [Mass fraction] 95 % Casandra Hassan Other [facility] Other 05-06-2023 13:40-0400 Systolic blood pressure 134 mm[Hg] Casandra Hassan Other [facility] Other 04-30-2023 08:30-0400 Body height 162.56 cm Manisha Marc Other [facility] Other 04-30-2023 08:30-0400 Body mass index (BMI) [Ratio] 53.86 kg/m2 Manisha Marc Other [facility] Other 04-30-2023 08:30-0400 Body weight 142.34 kg Manisha Marc Other [facility] Other 04-30-2023 08:30-0400 Diastolic blood pressure 82 mm[Hg] Manisha Marc Other [facility] Other 04-30-2023 08:30-0400 SaO2% (BldA) [Mass fraction] 100 % Manisha Marc Other [facility] Other 04-30-2023 08:30-0400 Systolic blood pressure 120 mm[Hg] Manisha Marc Other [facility] Other 04-29-2023 07:00-0400 Body height 162.56 cm Nely Cruz Other [facility] Other 04-29-2023 07:00-0400 Body mass index (BMI) [Ratio] 54.41 kg/m2 Nely Fitt Other [facility] Other 04-29-2023 07:00-0400 Body weight 143.79 kg Nely Cruz Other [facility] Other 03-25-2023 13:45-0400 Body height 162.56 cm Celio Mullins Other [facility] Other 03-25-2023 13:45-0400 Body mass index (BMI) [Ratio] 55.45 kg/m2 Celio Mullins Other [facility] Other 03-25-2023 13:45-0400 Body weight 146.56 kg Celio Mullins Other [facility] Other 03-25-2023 13:45-0400 Diastolic blood pressure 57 mm[Hg] Celio Mullins Other [facility] Other 03-25-2023 13:45-0400 Respiratory rate 18 /min Celio Mullins Other [facility] Other 03-25-2023 13:45-0400 SaO2% (BldA) [Mass fraction] 97 % Celio Mullins Other [facility] Other 03-25-2023 13:45-0400 Systolic blood pressure 106 mm[Hg] Celio Mullins Other [facility] Other 02-11-2023 12:15-0400 Body height 163.83 cm Casandra Hassan Other [facility] Other 02-11-2023 12:15-0400 Body mass index (BMI) [Ratio] 54.88 kg/m2 Casandra Hassan Other [facility] Other 02-11-2023 12:15-0400 Body temperature 98 [degF] Casandra Tesfayeley Other [facility] Other 02-11-2023 12:15-0400 Body weight 147.33 kg Casandra Tesfayeley Other [facility] Other 02-11-2023 12:15-0400 Diastolic blood pressure 85 mm[Hg] Casandra Tesfayeley Other [facility] Other 02-11-2023 12:15-0400 Respiratory rate 18 /min Casandra Sonya Other [facility] Other 02-11-2023 12:15-0400 SaO2% (BldA) [Mass fraction] 98 % Casandra Tesfayeley Other [facility] Other 02-11-2023 12:15-0400 Systolic blood pressure 128 mm[Hg] Casandra Sonya Other [facility] Other 07-13-2022 11:15-0500 Body height 163.83 cm Michelle Haynesmond Other [facility] Other 07-13-2022 11:15-0500 Body mass index (BMI) [Ratio] 51.54 kg/m2 Michelle Haynesmond Other [facility] Other 07-13-2022 11:15-0500 Body temperature 96.6 [degF] Michelle Haynesmond Other [facility] Other 07-13-2022 11:15-0500 Body weight 138.35 kg Michelle Oma Other [facility] Other 07-13-2022 11:15-0500 Respiratory rate 18 /min Michelle Haynesmond Other [facility] Other 07-13-2022 11:15-0500 SaO2% (BldA) [Mass fraction] 96 % Michelle Oma Other [facility] Other 07-06-2021 13:00-0500 Body height 163.83 cm Michelle Oma Other [facility] Other 07-06-2021 13:00-0500 Body mass index (BMI) [Ratio] 49 kg/m2 Michelle Oma Other [facility] Other 07-06-2021 13:00-0500 Body temperature 97.5 [degF] Michelle Oma Other [facility] Other 07-06-2021 13:00-0500 Body weight 131.54 kg Michelle Oma Other [facility] Other 07-06-2021 13:00-0500 SaO2% (BldA) [Mass fraction] 96 % Michelle Oma Other [facility] Other 06-17-2021 11:00-0400 Body height 163.83 cm Michelle Oma Other [facility] Other 06-17-2021 11:00-0400 Body mass index (BMI) [Ratio] 49.68 kg/m2 Michelle Oma Other [facility] Other 06-17-2021 11:00-0400 Body temperature 98.3 [degF] Michelle Oma Other [facility] Other 06-17-2021 11:00-0400 Body weight 133.36 kg Michelle Haynesmond Other [facility] Other 06-17-2021 11:00-0400 Respiratory rate 18 /min Michelle Oma Other [facility] Other 06-17-2021 11:00-0400 SaO2% (BldA) [Mass fraction] 96 % Michelle Oma Other [facility] Other 05-31-2021 13:50-0400 Body height 163.83 cm Michelle Oma Other [facility] Other 05-31-2021 13:50-0400 Body mass index (BMI) [Ratio] 50.36 kg/m2 Michelle Oma Other [facility] Other 05-31-2021 13:50-0400 Body temperature 97.8 [degF] Michelle Oma Other [facility] Other 05-31-2021 13:50-0400 Body weight 135.17 kg Michelle Oma Other [facility] Other 05-31-2021 13:50-0400 Diastolic blood pressure 90 mm[Hg] Michelle Oma Other [facility] Other 05-31-2021 13:50-0400 Respiratory rate 18 /min Michelle Oma Other [facility] Other 05-31-2021 13:50-0400 SaO2% (BldA) [Mass fraction] 98 % Michelle Oma Other [facility] Other 05-31-2021 13:50-0400 Systolic blood pressure 150 mm[Hg] Michelle Ernandez Other [facility] Other Encounters Encounter Date Encounter Type Care Provider Facility Start: 06-28-2024 End: 06-28-2024 Bamboo flowsheet Mario Mcknight PhD Work Phone: [facility] Start: 06-28-2024 End: 06-28-2024 Bamboo flowsyarely Mcknight PhD Work Phone: [facility] Start: 06-28-2024 End: 06-28-2024 ambulatory MARIO MCKNIGHT Not Available Start: 06-25-2024 End: 06-25-2024 ambulatory Manisha Marc Facility:[facility] Start: 06-23-2024 ambulatory Facility:[facility] Start: 06-23-2024 End: 06-23-2024 Bamboo flowsheet [facility] Start: 06-23-2024 End: 06-23-2024 Bamboo flowsheet Christopher Kenny DO Work Phone: [facility] Start: 06-23-2024 End: 06-23-2024 Office outpatient new 45 minutes Christopher Kenny DO Work Phone: [facility] Comment on above: Cognitive impairment (Primary Dx); Anxiety Start: 06-23-2024 End: 06-23-2024 ambulatory GWEN DALEETT Not Available Start: 06-21-2024 End: 06-21-2024 ambulatory ROSITA Marc Work Phone: [facility] Work Phone: Start: 06-21-2024 End: 06-21-2024 Patient encounter procedure ROSITA Marc Work Phone: [facility] Work Phone: Start: 06-18-2024 Non-patient / Non-visit BIOLOGICAL CHEMISTBryon Marc Work Phone: [facility] Work Phone: Start: 06-15-2024 End: 06-15-2024 Departed Referred ROSITA Marc Work Phone: [facility] [facility] [place] Work Phone: Start: 06-15-2024 End: 06-15-2024 ambulatory ROSITA Marc Work Phone: [facility] Work Phone: Start: 06-15-2024 End: 06-15-2024 Patient encounter procedure ROSITA Marc Work Phone: [facility] Work Phone: Start: 06-07-2024 Non-patient / Non-visit ROSITA Marc Work Phone: [facility] Work Phone: Start: 05-13-2024 ambulatory Edward Richey acility:[facility] Start: 05-13-2024 Registered Recurring ROSITA Marc Work Phone: [facility] [place] Start: 04-21-2024 End: 04-21-2024 ambulatory ROSITA Marc Work Phone: [facility] Work Phone: Start: 04-21-2024 End: 04-21-2024 Patient encounter procedure ROSITA Marc Work Phone: [facility] Work Phone: Start: 04-15-2024 Non-patient / Non-visit BIOLOGICAL CHEMISTBryon Dyer Charlygareth Work Phone: [facility] Work Phone: Start: 04-12-2024 Non-patient / Non-visit BIOLOGICAL CHEMISTBryon Dyer Charlymarycarmenr Work Phone: [facility] Work Phone: Start: 04-03-2024 Registered Recurring BIOLOGICAL CHEMIST Layla reyna Tari Work Phone: [facility] Start: 03-16-2024 End: 03-16-2024 ambulatory MELA ANDERSON Not Available Start: 01-19-2024 End: 01-19-2024 ambulatory Bud Combs MD Facility:[facility] Start: 01-01-2024 Registered Recurring BIOLOGICAL CHEMISTBryon reyna Tari Work Phone: [facility] Start: 11-26-2023 End: 11-26-2023 ambulatory BIOLOGICAL CHEMISTBryon Dyer Tari Work Phone: [facility] Work Phone: Start: 11-26-2023 End: 11-26-2023 Patient encounter procedure ROSITA Dyer Charlymarycarmenr Work Phone: [facility] Work Phone: Start: 11-03-2023 End: 11-03-2023 ambulatory BIOLOGICAL CHEMISTBryon Dyer Charlymarycarmenr Work Phone: [facility] Work Phone: Start: 11-03-2023 End: 11-03-2023 Patient encounter procedure BIOLOGICAL CHEMISTBryon Dyer Denyeliudacher Work Phone: [facility] Work Phone: Start: 11-03-2023 End: 11-03-2023 ambulatory MARKO OSCAR Not Available Start: 10-30-2023 Non-patient / Non-visit BIOLOGICAL CHEMISTBryon Marc Work Phone: [facility] Work Phone: Start: 10-08-2023 End: 10-08-2023 Patient encounter procedure BIOLOGICAL CHEMISTBryon Marc Work Phone: [facility] [place] Main [place] Work Phone: Start: 10-08-2023 End: 10-08-2023 ambulatory BIOLOGICAL CHEMISTBryon Marc Work Phone: [facility] [place] Work Phone: Start: 10-06-2023 Non-patient / Non-visit ROSITA Marc Work Phone: [facility] Work Phone: Start: 10-06-2023 End: 10-06-2023 ambulatory Bud Combs MD Facility: [facility] Start: 10-01-2023 End: 10-01-2023 Patient encounter procedure BIOLOGICAL CHEMISTBryon Marc Work Phone: [facility] Work Phone: Start: 10-01-2023 End: 10-01-2023 ambulatory ROSITA Marc Work Phone: [facility] Work Phone: Start: 09-10-2023 Registered Recurring ROSITA Marc Work Phone: [facility] [place] Start: 09-08-2023 End: 09-08-2023 ambulatory Bud Combs MD Facility: [facility] Start: 09-03-2023 End: 09-03-2023 Patient encounter procedure ROSITA Marc Work Phone: [facility]- Start: 08-19-2023 IBT FOR OBESITY GROU P 2-10 30M Nely Cruz [facility] Start: 08-19-2023 End: 08-19-2023 ambulatory Manisha Marc [facility] [email or web address] Other Start: 08-19-2023 Registered Recurring BIOLOGICAL CHEMIST Layla castrosudheer Marc Work Phone: [facility] Work Phone: Start: 08-19-2023 End: 08-19-2023 Patient encounter procedure BIOLOGICAL CHEMIST Manisha Tari Work Phone: [facility] Work Phone: Start: 08-14-2023 Registered Recurring BIOLOGICAL CHEMIST Laylabryon Marc Work Phone: [facility] Start: 08-13-2023 End: 08-13-2023 ambulatory Manisha Marc Other [facility] [email or web address] Other Start: 08-13-2023 Office outpatient visit 15 minutes Manisha Marc [facility] Start: 08-13-2023 End: 08-13-2023 Patient encounter procedure ROSITA Manisha Tari Work Phone: [facility] Work Phone: Start: 07-24-2023 End: 07-24-2023 ambulatory MELA ANDERSON Not Available Start: 07-21-2023 End: 07-21-2023 ambulatory Bud Combs MD Facility: [facility] Start: 07-19-2023 End: 07-19-2023 ambulatory BIOLOGICAL CHEMISTBryon Marc Work Phone: [facility] [place] Work Phone: Start: 07-19-2023 End: 07-19-2023 Patient encounter procedure ROSITA Manisha Tari Work Phone: [facility] [place] [facility] Start: 07-15-2023 End: 07-15-2023 ambulatory Celio Mullins Other [facility] Other Start: 07-15-2023 Follow-up encounter Celio Mullins [facility] Start: 07-15-2023 End: 07-15-2023 Patient encounter procedure BIOLOGICAL CHEMISTBryon Marc Work Phone: [facility] Work Phone: Start: 07-07-2023 End: 07-07-2023 ambulatory Michelle Oma Other [facility] Other Start: 07-07-2023 Office outpatient visit 15 minutes Michelle Oma [facility] Start: 07-07-2023 End: 07-07-2023 Patient encounter procedure BIOLOGICAL CHEMISTBryon Marc Work Phone: [facility] Work Phone: Start: 07-03-2023 Registered Recurring BIOLOGICAL CHEMISTBryon Marc Work Phone: [facility] Start: 07-03-2023 End: 07-03-2023 Patient encounter procedure ROSITA Marc Work Phone: [facility] [place] Work Phone: Start: 07-03-2023 End: 07-03-2023 ambulatory BIOLOGICAL CHEMISTBryon Marc Work Phone: [facility] Work Phone: Start: 07-01-2023 End: 07-01-2023 Patient encounter procedure BIOLOGICAL CHEMISTBryon Marc Work Phone: [facility] [place] Work Phone: Start: 07-01-2023 End: 07-01-2023 ambulatory Celio Mullins Facility:[facility] Start: 06-29-2023 End: 06-29-2023 ambulatory Michelle Oma Other [employer] Other Start: 06-29-2023 Office outpatient visit 15 minutes Michelle Oma [facility] Start: 06-17-2023 Registered Recurring ROSITA Marc Work Phone: [facility] Work Phone: Start: 06-11-2023 End: 06-11-2023 ambulatory Manisha Marc Other [employer] Other Start: 06-11-2023 Office outpatient visit 25 minutes Manisha Marc [facility] Start: 05-06-2023 End: 05-06-2023 ambulatory Casandra Hassan Other [employer] Other Start: 05-06-2023 Office outpatient visit 10 minutes Casandra Hassan [facility] Start: 05-01-2023 End: 05-01-2023 ambulatory Manisha Marc Other [employer] Other Start: 05-01-2023 Telephone encounter Manisha Jacky her [facility] Start: 04-30-2023 End: 04-30-2023 ambulatory Manisha Marc Other [employer] Other Start: 04-30-2023 Encounter for genera l adult medical examination without abnormal findings Manisha Marc [facility] Start: 04-30-2023 Periodic preventive med est patient 18-39 yrs Manisha Marc [facility] Start: 04-29-2023 ([facility] WMNI) WMN Initial Provider Nely Cruz [facility] Start: 04-29-2023 End: 04-29-2023 ambulatory Nely Cruz Other [employer] Other Start: 03-25-2023 End: 03-25-2023 ambulatory Celio Mullins Other [employer] Other Start: 03-25-2023 Nutrition therapy Celio Mullins [facility] Start: 03-25-2023 Telephone encounter Celio Owens [facility] Start: 03-14-2023 End: 03-14-2023 ambulatory Nely Cruz Other [employer] Other Start: 03-14-2023 Telephone encounter Nely Owens [facility] Start: 02-11-2023 End: 02-11-2023 ambulatory Casandra Hassan Other [employer] Other Start: 02-11-2023 Office outpatient visit 15 minutes Casandra Hassan [facility] Start: 12-31-2022 End: 01-01-[address] MARKO OSCAR . Facility:[facility] Start: 11-26-2022 End: 11-27-[address] MARKO OSCAR . Facility:[facility] Start: 11-08-2022 End: 11-09-[address] THADDEUS ROD Facility:[facility] Start: 10-28-2022 End: 10-28-[address] MARKO OSCAR . Facility:[facility] Start: 07-13-2022 End: 07-13-2022 ambulatory Michelle Ernandez Other [employer] Other Start: 07-13-2022 Office outpatient visit 15 minutes Michelle Ernandez [facility] Start: 03-07-2022 End: 03-08-[address] THADDEUS ROD Facility:[facility] Start: 01-25-2022 Encounter for genera l adult medical examination without abnormal findings DR THADDEUS ROD [facility] Start: 01-21-2022 End: 01-22-[address] THADDEUS ROD Facility:[facility] Start: 01-21-2022 End: 01-22-2022 Encounter for general adult medical examination without abnormal findings DR THADDEUS ROD Facility:[facility] Start: 07-06-2021 End: 07-06-2021 ambulatory Michelle Ernandez Other [employer] Other Start: 07-06-2021 Office outpatient visit 15 minutes Michelle Oma [facility] Start: 06-17-2021 Office outpatient visit 15 minutes Michelle Oma [facility] Start: 05-31-2021 Office outpatient visit 25 minutes Michelle Oma [facility] Start: 08-27-2018 End: 08-27-2018 ambulatory BRENT KINNEY Facility:[facility] Procedures Date Procedure Procedure Detail Performing [...] Screening for malign ant neoplasm of cervix [facility] Start: 11-02-2026 Screening for malign ant neoplasm of cervix Pap Smear [facility] Start: 11-02-2024 End: 11-02-2024 Patient encounter procedure 11/02/2024 11:00 AM EDT Office Visit [facility] [address] [place] [address] Marko Oscar DO [address] [place] [address] [facility] Start: 08-16-2024 End: 08-16-2024 Patient encounter procedure 08/16/2024 11:20 AM EST Office Visit [facility] [address] [place] [address] Love Consuelo, NEVIN [address] [place] [address] [facility] [place] [address] Start: 06-28-2024 End: 06-28-2024 Patient encounter procedure [facility] Comment on above: Cognitive impairment Start: 06-23-2024 End: 06-23-2024 Patient encounter procedure 06/23/2024 12:30 PM EST Office Visit KIRIT [address] [place] [address] Gwen Cox DO [address] [place] [address] Arrived [facility] [place] [address] Comment on above: Arrived Start: 06-21-2024 Patient referral [facility] Work Phone: Start: 06-15-2024 Bacteria identified in Urine by Culture Urine Culture [facility] Start: 06-15-2024 [facility] Start: 06-15-2024 Urine culture [facility] Start: 04-18-2024 Influenza vaccination Influenz a Vaccine (#1) [facility] Chlamydia trachomati s DNA [Presence] in Unspecified specimen by SURI with probe detection [facility] Comprehensive metabo lic 2000 panel - Serum or Plasma [facility] Holter monitor study [facility] MR Unspecified body region [facility] Neisseria gonorrhoea e DNA [Presence] in Unspecified specimen by SURI with probe detection [facility] Patient referral [facility] Work Phone: Trichomonas vaginali s DNA [Presence] in Unspecified specimen by SURI with probe detection [facility] Immunizations Immunization Date Immunization Notes Care Provider Fa ken 03-03-2021 Do not use COVID-19 Pfizer 2 dose Manisha Tari Other [facility] 02-10-2021 Do not use COVID-19 Pfizer 2 dose Manisha Tari Other [facility] 08-03-2018 Toradol per 15 mg Michellenawaf Sofia ond Other [facility] Other Payers Date Payer Category Payer Self-pay [id number] 2022 Self-pay [id number] 2022 Private Health Insurance 1991 Unknown [id number] 2.16.840.1.676076.3.579.2. 732 1991 Unknown [id number] 2.16.840.1.055714.3.579.2. 593 1991 Unknown [id number] 2.16.840.1.826254.3.579.2. 593 1991 Unknown [id number] 2.16.840.1.116983.3.579.2. 593 1991 Unknown [id number] 2.16.840.1.834474.3.579.2. 593 1991 Unknown [id number] 2.16.840.1.023648.3.579.2. 593 1991 Unknown [id number] 2.16.840.1.150588.3.579.2. 593 1991 Unknown [id number] 2.16.840.1.157664.3.579.2. 196 1991 Unknown [id number] 2.16.840.1.750790.3.579.2. 196 1991 Unknown [id number] 2.16.840.1.782633.3.579.2. 196 1991 Unknown [id number] 2.16.840.1.999526.3.579.2. 196 1991 Unknown [id number] 2.16.840.1.575388.3.579.2. 9 1991 Unknown [id number] 2.16.840.1.256502.3.579.2. 9 1991 Unknown [id number] 2.16.840.1.560173.3.579.2. 9 1991 Unknown [id number] 2.16.840.1.942246.3.579.2. 9 1991 Unknown [id number] 2.16.840.1.810590.3.579.2. 9 1959 Medicaid [id number] 1959 Unknown [id number] Unknown [place] [id number] Unknown [id number] 2.16.840.1.048042.3.579.2. 531 Unknown [id number] 2.16.840.1.005719.3.579.2. 531 Unknown [id number] 2.16.840.1.106381.3.579.2. 531 Unknown [id number] 2.16.840.1.994080.3.579.2. 531 Unknown [id number] 2.16.840.1.964940.3.579.2. 531 Unknown [id number] 2.16.840.1.505594.3.579.2. 531 Unknown [id number] 2.16.840.1.152403.3.579.2. 531 Unknown [id number] 2.16.840.1.311563.3.579.2. 531 Unknown [id number] 2.16.840.1.096566.3.579.2. 531 Social History Date Type Detail Facility Unknown if ever smoked [facility] Other Start: 03-11-2023 Sex Assigned At N [employer] Other Start: 12-07-2021 End: 03-18-2023 Tobacco smoking status NHIS Never smoked tobacco (finding) [facility] Start: 1990 Sex Assigned At Female F [facility] Start: 05-31-2024 Alcoholic beverage intake Not Asked [facility] Start: 07-24-2023 History of Social function [facility] Start: 03-11-2023 Gender identity Identifies as female gender (finding) [facility] Clinical Notes 05-31-2021 to 06-23-2024 Gwen Cox, [...] , wrist extensors , wrist flexor , coder strength 5/5. LUE Strength deltoid , biceps , triceps , wrist extensors , wrist flexor , coder strength 5/5. RLE Strength illopsoas, quadriceps, tibialis [...] reflex 2+ . Valiente's sign negative. Coordination: Minubk-ud-upzm testing and rapid alternating movements are normal [...] and return instructions documented in this encounter [facility] 08-19-2023 Evaluation note Encounter Date Diagnosis Assessment Notes Aug, Obesity, unspecified classification , unspecified obesity type, unspecified whether serious comorbidity present (ICD-10 - E66.9) Aug, BMI 50.0-59.9, adult (ICD-10 - Z68.43) Aug, Other Summary of Visit: (A) Importnace of planning to simplify meals (B) Deconstructed Meals (C) Sharing meal ideas (D) Plate method for meal planning ; grocery shortcuts [facility] Other 12-27-2023 Evaluation note* Encounter Date Diagnosis [...] You have been given relevant education handouts. [facility] Other 11-28-2023 Evaluation note* Encounter Date Diagnosis [...] voice recognition software. Please excuse errors in battery loader. Jun, Dietary surveillance and counseling (ICD-10 - [...] metformin 1000 mg total daily, managed by [employer] Jun, Asthma (ICD-10 - J45.909) Jun, Migraine (ICD-10 - G43.909) Jun, Primary hypertension (ICD-10 - I10) Currently on pharmacotherapy Potential for overtreatment given lightheadedness Jun, Other An additional 9 minutes was spent counseling the patient on behavior modification including proper nutrition and physical activity. [facility] Other 11-20-2023 Evaluation note* Encounter Date Diagnosis [...] until you feel better. You may take civd-[id number] Imodium for diarrhea as needed. Avoid dairy foods as well as greasy fried foods. Follow-up with your physician if no improvement in 2 to 3 days. May return to work on Jun, Diarrhea, unspecified type (ICD-10 - R19.7) Diarrhea: adult home care material was printed [facility] Other 11-12-2023 Evaluation note* Encounter Date Diagnosis [...] to 3-day Jun, Bronchitis (ICD-10 - J40) [facility] Other 10-25-2023 Evaluation note* Encounter Date Diagnosis Assessment Notes Treatment Notes Treatment Clinical Notes May, Degenerative lumbar disc (ICD-10 - M51.36) L4-5 Pt would like a referral to pain management regarding her chronic back pain. Her last x-ray of the lumbar spine was completed 10/2022 at [facility]--reviewed and in scanned documents. [...] (ICD-10 - F31.81) Referral placed to [facility] for medication mangement. [facility] Other 09-19-2023 Evaluation note* Encounter Date Diagnosis Assessment Notes Treatment Notes Treatment Clinical Notes Apr, Exposure to head lice (ICD-10 - Z20.7) Discussed with patient exam is without any signs of current lice infection. May return to work tomorrow. Patient completed next treatment yesterday. Patient verbalized understanding. [facility] Other 09-14-2023 Evaluation note* Encounter Date Diagnosis Assessment Notes Treatment Notes Treatment Clinical Notes Apr, Primary hypertension (ICD-10 - I10) [facility] Other 09-13-2023 Evaluation note* Encounter Date Diagnosis [...] (ICD-10 - R73.01) Will obtain records from [facility] for most recent labs. Patient is [...] Low back pain, unspecified (ICD-10 - M54.50) [facility] Other 09-12-2023 Evaluation note* Encounter Date Diagnosis [...] 2) Aim for < 45 g carb/meal [facility] Other 08-08-2023 Evaluation note* Encounter Date Diagnosis [...] voice recognition software. Please excuse errors in battery loader. Mar, Dietary surveillance and counseling (ICD-10 - [...] as sweet tea, replace ice cream with Ukrainian yogurt, use protein shake in the a.m. [...] with the patient, and documenting clinical information. [facility] Other 06-27-2023 Evaluation note* Encounter Date Diagnosis [...] 7 days, sooner if significantly worsening symptoms. [facility] Other 11-26-2022 Evaluation note* Encounter Date Diagnosis [...] 3 days. Off work today and tomorrow [employer] Other 11-19-2021 Evaluation note* Encounter Date Diagnosis [...] Patient care instructions given in writting by [facility] At Home document. [facility] Other 10-31-2021 Evaluation note* Encounter Date Diagnosis [...] Patient care instructions given in writting by [facility] document. [facility] Other 10-14-2021 Evaluation note* Encounter Date Diagnosis Assessment Notes Treatment Notes Treatment Clinical Notes May, Dysuria (ICD-10 - R30.0) May, Urinary tract infection, site not specified (ICD-10 - N39.0) May, Hematuria, unspecified (ICD-10 - R31.9) [facility] Other Evaluation noteNo InformationNort Barnacle Other Evaluation noteNo assessment information [facility] Work Phone: Evaluation note* Diagnosis Onset Date Resolution Status Dietary surveillance and counseling acute Exercise counseling acute Food insecurity acute PCOS (polycystic ovarian syndrome) acute Prediabetes acute Severe obesity (BMI >= 40) a [facility] Work Phone: Evaluation note* Diagnosis Onset Date Resolution Status Dietary surveillance and counseling acute Exercise counseling acute Food insecurity acute PCOS (polycystic ovarian syndrome) acute Prediabetes acute Severe obesity (BMI >= 40) a cute Lightheadedness acute Menorrhagia acute Palpitations acute [facility] Work Phone: Evaluation note* Diagnosis Onset Date Resolution Status Dietary surveillance and counseling acute Exercise counseling acute Food insecurity acute PCOS (polycystic ovarian syndrome) acute Prediabetes acute Severe obesity (BMI >= 40) a cute Lightheadedness acute Menorrhagia acute Palpitations acute Dietary surveillance and counseling acute Exercise counseling acute Severe obesity (BMI >= 40) a [facility] Work Phone: Evaluation note* Diagnosis Onset Date Resolution Status Lightheadedness acute Menorrhagia acute Palpitations acute Dietary surveillance and counseling acute Exercise counseling acute Severe obesity (BMI >= 40) a [facility] Work Phone: evaluation note* Diagnosis Onset Date Resolution Status Aphasia acute History of seizures acute Memory loss acute Migraine acute [facility] Work Phone: Evaluation note* Diagnosis Onset Date Resolution Status Aphasia acute Apnea acute Fatigue acute History of seizures acute Loud snoring acute Memory loss acute Migraine acute Morbid obesity acute Acute UTI acute [facility] Work Phone: Evaluation note* Diagnosis Onset Date Resolution Status Aphasia acute Apnea acute Fatigue acute History of seizures acute Loud snoring acute Memory loss acute Migraine acute Morbid obesity acute Acute UTI acute Fatty liver disease, nonalcoholic acute Frequent UTI acute UTI (urinary tract infection) acute [facility] Work Phone: Evaluation note* Diagnosis Cognitive impairment- Primary Unspecified persistent mental disorders due to conditions classified elsewhere Anxiety Anxiety state, unspecified documented in this encounter [facility] HealthcareHistory general Narrative - Reported* Type Description [...] History Hospitalized for blood l oss 2010 [facility] Other History general Narrative - Reported* Type [...] History Hospitalized for blood l oss 2010 [facility] Other history general Narrative - Reported* Type [...] History Hospitalized for blood l oss 2010 [facility] Other history general Narrative - Reported* Type [...] History Hospitalized for blood l oss 2010 [facility] Other history general Narrative - Reported* Type [...] History Hospitalized for blood l oss 2010 [facility] Other history general Narrative - Reported* Type [...] History Hospitalized for blood l oss 2010 [facility] Other History general Narrative - Reported* Type [...] History Hospitalized for blood l oss 2010 [facility] Other Hospital Discharge instructionsAmbulatory Orders* Referral to Gastroenterology Time Frame: 06/21/24, Location: None Selected * Referral to Urology Time Frame: 06/21/24, Location: None Selected [facility] Work Phone: Reason for referral (narrative)* Reason *FU 06/20 would sherif garnett referral to pscyiatrist -- was recently diagnosed with bipolar and would like medication management. Diagnosis 1 Bipolar 2 disorder ( F31.81) Referral Organization [facility] Referring Provider First Name Manisha Referring Provider Last Name Charlyachetad Referring Provider Specialty Nurse Noble orozco Referred Organization [facility] Referred Address [address] [place] [address],[place], [place],[address] Referred Provider Specialty Psychiatry Referral Priority Routine General Notes Paola Henderson 01:25:30 PM >received today, not sure if [facility] does medication management, waiting for notes to be locked Paola Henderson 06/13/2023 10:34:39 AM >notes locked, referral faxed Clinical Notes p: [phone] f: [id number] [facility] Reason *FU 06/20 would sherif garnett referral to pain management for other options for pain control for back pain Diagnosis 1 Degenerative lumbar disc (M51.36) Referral Organization [facility] Referring Provider First Name Manisha Referring Provider Last Name Charlyachetad Referring Provider Specialty Nurse Noble orozco Referred Organization [facility] Referred Provider Yrn Parsons Referred Address [address] [facility],[place], [place],[address] Referred Provider Specialty Pain Medicin e Referral Priority Routine General Notes Kerrisudheer Paola 01:21:23 PM >received today, waiting for notes to be locked Paola Henderson 06/13/2023 10:25:26 AM >notes locked, referral faxed Clinical Notes f: [id number] [facility] Narrative* Consultation (Routine) - Closed Specialty Diagnoses / Procedures Referred By Ela t Referred To Contact Neurology Diagnoses Aphasia Personal history of other specified conditions Other amnesia Procedures MO OFFICE/OUTPATIENT NEW LOW MDM 30 MINUTES Manisha Marc, PEDIATRICS PHYSICIAN [address] [place] [address] [place] [address] Phone: tel: fax: Sugey Dinero MD [id number] [place] [address] Phone: tel: fax: Referral ID Status Reason Start Date Expiration Date V isits Requested Visits Authorized [id number] Closed Consult and Treat 05/28/2024 11/24/2024 1 1 [facility] Healthcare Summary Purpose Family History No [...] and content) DATE CREATED AUTHOR 08/27/2021 [facility] [employer] DATE CREATED AUTHOR AUTHOR'S ORGANIZ ATION 01/01/2023 [facility] DATE CREATED AUTHOR AUTHOR'S ORGANIZ ATION 01/30/2024 [facility] DATE CREATED AUTHOR AUTHOR'S ORGANIZ ATION 06/25/2024 [facility] DATE CREATED AUTHOR AUTHOR'S ORGANIZ ATION 06/27/2024 [facility] DATE CREATED AUTHOR AUTHOR'S ORGANIZ ATION 06/28/2024 [facility] EPIC REASON FOR VISIT (unrecogniz [...] Member Role Status Dates Manisha Marc APRN PEDIATRICS PHYSICIAN-C Primary Care Provider Active Team Status: Active Member Role Status Dates Manisha Marc APRN PEDIATRICS PHYSICIAN-C Primary Care Provider, Attending Provider Active Team Status: Inactive Member Role Status Dates Manisha Marc APRN PEDIATRICS PHYSICIAN-C Primary Care Provider Active Celio Mullins DO Attending Provider Active Team Status: Inactive Member Role Status Dates Manisha Marc APRN PEDIATRICS PHYSICIAN-C Primary Care Provider Active Clinton Frazier MD Attending Provider Active Team Status: Inactive Member Role Status Dates Manisha Marc APRN PEDIATRICS PHYSICIAN-C Primary Care Provider Active Start: July 032022 End: July 03, 2023 Celio Mullins DO Attending Provider Active St art: July 03, 2023 End: July 03, 2023 Team Status: Active Member Role Status Dates Manisha Marc APRN PEDIATRICS PHYSICIAN-C Primary Care Provider Active Start: July 032022 [...] Member Role Status Dates Manisha Marc APRN PEDIATRICS PHYSICIAN-C Primary Care Provider Active Start: July End: July 19, 2023 Clinton Frazier MD Attending Provider Active Start: July 19, 2023 End: July 19, 2023 Team Status: Inactive Member Role Status Dates Manisha Marc APRN PEDIATRICS PHYSICIAN-C Attending Provider Act rafal Start: August 13, 2023 End: August 13, 2023 Team Status: Inactive Member Role Status Dates Nely Cage [facility] Attending Provider Active Start: August 19, 2023 End: August 19, 2023 Team Status: Active Member Role Status Dates Manisha Marc APRN PEDIATRICS PHYSICIAN-C Primary Care Provider, Attending Provider Active Start: August 19, 2023 Team Status: Inactive Member Role Status Dates Manisha Marc APRN PEDIATRICS PHYSICIAN-C Attending Provider Act rafal Start: September 03, 2023 End: September 03, 2023 Team Status: Inactive Member Role Status Dates Manisha Marc APRN PEDIATRICS PHYSICIAN-C Primary Care Provider Active Start: October 012023 End: October 01, 2023 Celio Mullins DO Attending Provider Active St art: October 01, 2023 End: October 01, 2023 Team Status: Active Member Role Status Dates Manisha Marc APRN PEDIATRICS PHYSICIAN-C Primary Care Provider Active Start: August 142022 Edward Gilmore MD Attending Provider Active Start: August 14, 2023 Team Status: Active Member Role Status Dates Manisha Marc APRN PEDIATRICS PHYSICIAN-C Primary Care Provider, Attending Provider Active Start: October 06, 2023 Team Status: Inactive Member Role Status Dates Manisha Marc APRN PEDIATRICS PHYSICIAN-C Primary Care Provider Active Start: October 082023 End: October 08, 2023 Gwen Cox DO Attending Provider Active Start: October 08, 2023 End: October 08, 2023 Team Status: Active Member Role Status Dates Manisha Rohrbacher , BIOLOGICAL CHEMIST PEDIATRICS PHYSICIAN-C Primary Care Provider, Attending Provider Active Start: October 30, 2023 Team Status: Inactive Member Role Status Dates Manisha Marc APRN PEDIATRICS PHYSICIAN-C Primary Care Provider, Attending Provider Active Start: November 03, 2023 End: November 03, 2023 Team Status: Active Member Role Status Dates Manisha Marc BIOLOGICAL CHEMIST PEDIATRICS PHYSICIAN-C Primary Care Provider Active Start: August Edward Gilmore MD Attending Provider Active Start: September 10, 2023 Team Status: Inactive Member Role Status Dates Manisha Marc APRN PEDIATRICS PHYSICIAN-C Primary Care Provider Active Start: November 26, 2023 End: November 26, 2023 Celio Mullins DO Attending Provider Active St art: November 26, 2023 End: November 26, 2023 Team Status: Active Member Role Status Dates Manisha Marc APRN PEDIATRICS PHYSICIAN-C Primary Care Provider Active Start: January 01, 2024 Edward Gilmore MD Attending Provider Active Start: January 01, 2024 Team Status: Active Member Role Status Dates Manisha Marc APRN PEDIATRICS PHYSICIAN-C Primary Care Provider Active Start: April 03, 2024 Edward Gilmore MD Attending Provider Active Start: April 03, 2024 Team Status: Active Member Role Status Dates Manisha Marc APRN PEDIATRICS PHYSICIAN-C Primary Care Provider Active Start: April 12, 2024 Jaymie Griffin DO Attending Provider Active Start: April 12, 2024 Team Status: Inactive Member Role Status Dates Manisha Marc APRN PEDIATRICS PHYSICIAN-C Primary Care Provider, Attending Provider Active Start: April 21, 2024 End: April 21, 2024 Team Status: Active Member Role Status Dates Manisha Marc APRN PEDIATRICS PHYSICIAN-C Primary Care Provider Active Start: April 12, 2024 Agusto Rojas DO Attending Provider Active Sta rt: April 12, 2024 Team Status: Active Member Role Status Dates Manisha Marc BIOLOGICAL CHEMIST PEDIATRICS PHYSICIAN-C Primary Care Provider Active Start: April 15, 2024 Agusto Rojas DO Attending Provider Active Sta rt: April 15, 2024 Team Status: Active Member Role Status Dates Manisha Marc APRN PEDIATRICS PHYSICIAN-C Primary Care Provider Active Start: April 192023 Edward Gilmore MD Attending Provider Active Start: May 13, 2024 Team Status: Active Member Role Status Dates Manisha Marc APRN PEDIATRICS PHYSICIAN-C Primary Care Provider, Attending Provider Active Start: June 07, 2024 Team Status: Inactive Member Role Status Dates Manisha Marc APRN PEDIATRICS PHYSICIAN-C Primary Care Provider Active Start: May End: [...] Member Role Status Dates Manisha Marc APRN PEDIATRICS PHYSICIAN-C Primary Care Provider, Attending Provider Active Start: June 21, 2024 End: June 21, 2024 E Merchant Relationship Specialty Start Date End Date Thaddeus Rod MD [address] [place] [address] PCP - General Family Medicine 04/24/23 E Merchant Relationship Specialty Start Date End Date Thaddeus Rod MD [address] [place] [id number] PCP - General Family Medicine 04/24/23 E Merchant Relationship Specialty Start Date End Date Thaddeus Rod MD [address] [place] [address] PCP - General Family Medicine 04/24/23 Goals [...] BE BASED ON THE PRIMARY CLINICAL RECORDS. [facility] [employer] [facility] provides no warranty or guarantee of the accuracy or completeness of information in this document.
== END 2024-06-30 20:55 | disposition home or self-care (01) ==
LOC: SLEEP 20:55
PROVIDERS: PCP Nurse Practitioner Family; Visit Provider Nurse Practitioner Family
DX: G47.33 Obstructive sleep apnea (adult) (pediatric) (principal)
CPT/HCPCS: 95811

== ENCOUNTER 2024-07-13 07:40 | Outpatient (RCR) | payer OTHER, SELFPAY ==
--- OUTSIDE RECORDS SUMMARY | 2024-06-29 07:48 | XMS_ITS | CCD ---
Author Organization [facility] Providers Care Supervisor Picking Crew Name Role Phone BRENT KINNEY Referring Unavailable [...] Unavailable Celio Mullins Unavailable Manisha Marc Unavailable [phone] ROSITA Marc Primary Care Provider ROSITA Marc Attending Provider DO Celio Mullins Attending Provider [phone] ROSITA aMrc Primary Care Provider MD Clinton Frazier Attending Provider ROSITA Marc Attending Provider ROSITA Marc Primary Care Provider DO Celio Mullins Attending Provider MD Edward Gilmore Attending Provider MD Clinton Frazier Attending Provider ROSITA Marc Primary Care Provider MD Edward Gilmore Attending Provider DO Gwen Cox Attending Provider ROSITA Marc Primary Care Provider MD Edward Gilmore Attending Provider ROSITA Marc Attending Provider [phone] DO Gwen Cox Attending Provider ROSITA Marc Primary Care Provider MD Edward Gilmore Attending Provider ROSITA Marc Primary Care Provider MD Edward Gilmore Attending Provider Garret CROWLEY, Andrius Vytautas Attending Unavailable Giedrakatalina CROWLEY, Andrius Vytautas Attending Unavailable Garret CROWLEY, Andrius Vytautas Attending Unavailable Giedrakatalina CROWLEY, Andrius Vytautas Attending Unavailable ROSITA Marc Primary Care Provider MD Edward Gilmore Attending Provider ROSITA Marc Primary Care Provider MD Edward Gilmore Attending Provider ROSITA Hassan Attending Provider ROSITA Marc Primary Care Provider MD Edward Gilmore Attending Provider ROSITA Hassan Attending Provider Thaddeus Rod MD Primary Care Provider DenyrbmarycarmenrManisha Admitting Unavailable Denyrbachetad, Manisha Attending Unavailable Edward Gilmore Admitting Unavailab Edward Lance Attending Unavailab le Denyrbacher, [facility] Care Unavailable Celio Mullins Admitting Unavailable Celio Mullins Attending Unavailable Denyrbacher, [facility] Care Unavailable Clinton Frazier Admitting Unavailable Clinton Frazier Attending Unavailable Denyrbacher, [facility] Care Unavailable Casandra Hassan Admitting Unavailable Casandra Hassan Attending Unavailable Ivon Mullinsten M Admitting Unavailable Ivon Mullinsten M Attending Unavailable Rohrbacher, [facility] Care Unavailable Ivon Mullinsten M Admitting Unavailable Ivon Mullinsten M Attending Unavailable Rohrbacher, [facility] Care Unavailable Gwen Cox Admitting Unavailab Gwen Avila M Attending Unavailab le Rohrbacher, [facility] Care Unavailable Rohrbacher, Manisha Admitting Unavailable Rohrbacher, Manisha Attending Unavailable Rohrbacher, [facility] Care Unavailable MARKO OSCAR Attending Unavailable MELA ANDERSON Attending Unavailable JUSTIN, MELA Attending Unavailable GWEN COX Attending Unavailable MANISHA MARC Referring Unavailab MARIO Garcia Attending Unavailable GWEN COX Referring Unavailable Allergies Allergy Classification Reported Allergen(s) Allergy Type Date of Onset Reaction(s) Facility (20 sources) Amoxicillin; Translations: [AMOXICILLIN] Drug Allergy 07-08-20 16 rash, [facility] (17 sources) Cefaclor; Translations: [CEFACLOR] Drug Allergy 04-14-20 15 Hives [facility] Repository (20 sources) Erythromycin; Translations: [ERYTHROMYCIN] Drug Allergy 04-14-20 15 hives, Rash [facility] Repository (19 sources) Cefaclor; Translations: [Ceclor] Drug Allergy 04-17-20 15 [facility] Rep[facility] (16 sources) Erythromycin Drug Allergy 04-17-20 15 Unknown Reaction, [facility] Rep[facility] (16 sources) Cephalosporins (Antibiotic); Translations: [Cephalosporins] Allergy to substance 12-10-19 22 Unknown Reaction, Rash [facility] (3 sources) Lactulose; Translations: [lactulose] Drug Allergy 02-12-20 [address] [facility] (1 source) Erythromycin Drug Allergy 06-21-[address] [facility] Repository Medications Current Medications Medication Drug Class(es) Dates Sig (Normalized) Sig (Original) [id number] 200 actuat albuterol 0.09 mg/actuat metered dose [...] INHALATION Q6H February 11, 2020 11:00pm take 2 puff(s) by in halation every six hours albuterol HFA 90 mcg/act inhaler Inhale 2 puffs every 6 (six) hours if needed. Active take 1 puff(s) by in halation every four hours as needed Ventolin HFA 108 (90 Base) MCG/ACT 1 puff as needed Inhalation every 4 hrs Active Baclofen (6 sources) gamma-Aminobutyric Acid-ergic Agonist Start: 06-15-2024 Baclofen Active MG PO June 14, 2024 11:00pm Start: 06-15-2024 Baclofen Activ e MG PO June 15, 2024 12:00am take 1 tablet by miranda th in the morning, then take 1 tablet by mouth in the evening, then take 1 tablet by mouth at bedtime baclofen (Lioresal) 10 MG tablet Take 10 mg by mouth in the morning and 10 mg in the evening and 10 mg before bedtime. Active cariprazine 1.5 mg oral capsule (6 sources) Atypical Antipsychotic Start: 10-10-2023 Vraylar 1.5 MG capsule 10/10/2023 Active take 1 capsule by mo [facility] every twenty-four hours Vraylar 1.5 MG 1 capsule Orally Once a day Active ciprofloxacin 500 mg oral tablet (1 source) Quinolone Antimicrobial Start: 06-21-2024 Ciprofloxacin Hcl Active 500 MG PO June 21, 2024 12:00am clindamycin 300 mg oral capsule (3 sources) Lincosamide Antibacterial Start: 06-15-2024 Clindamycin Hcl Active MG PO June 14, 2024 11:00pm diazePAM 10 mg oral tablet (4 sources) Benzodiazepine Start: 09-25-2023 take 1 tablet by mouth every hour diazePAM (Valium) 10 MG tablet take 1 tablet by mouth 1 hour prior to procedure 09/25/2023 Active doxycycline hyclate 100 mg oral tablet [...] PO Daily 180 90 April 05, 2024 12:28pm Start: 10-01-2023 [...] at bedtime 90 February 16, 2020 11:00pm November 26, 2023 7:33am DULoxetine (Cymb esme) [address] capsule Take 90 mg by mouth in the morning. Active take 2 capsules by m outh every twenty-four hours Cymbalta 60 MG 2 capsule Orally Once a day for 90 days Active Cymbalta Active ferrous sulfate 325 mg oral tablet (13 sources) Start: 11-04-2023 End: 04-21-2024 take 1 tablet by mouth once daily FeroSul 325 (65 Fe) MG tablet Take 1 tablet by mouth Daily 11/04/2023 Active fluocinonide 0.5 mg/ml topical solution (4 sources) Corticosteroid Start: 02-18-2024 fluocinonide (Lidex) 0.05 % external solution apply 3 TO 4 drops to scalp once daily ON FRIDAY THROUGH FRIDAY then off WEEKENDS 02/18/2024 Active gabapentin 300 mg oral capsule (20 sources) Anti-epileptic Agent Start: 02-12-2020 End: 10-01-2023 take 1 capsule by mouth three times daily as needed Gabapentin Active 300 MG PO Three times daily October 01, 2023 12:00am FreeTextSi capsule Orally Once a day PRN; Note: Source Status: RefillPRN; Refills: 0; Provider: Tari Garnett take 1 capsule by mo uth once daily as needed Gabapentin 300 MG 1 capsule Orally Once a day PRN for 30 days PRN Active ibuprofen 800 mg oral tablet (3 sources) Nonsteroidal Anti-inflammatory Drug Start: 06-15-2024 Ibuprofen Active MG PO June 14, 2024 11:00pm lamoTRIgine 25 mg oral tablet (13 sources) Mood Stabilizer, Anti-epileptic Agent Start: 10-01-2023 lamoTRIgine (LaMICtal) 25 MG tablet take 1 tablet by mouth IN THE MORNING and 2 tablet by mouth IN ... (REFER TO PRESCRIPTION NOTES). 10/23/2023 Active lisinopril 10 mg oral tablet (20 sources) Angiotensin Converting Enzyme Inhibitor Start: 11-26-2023 End: 04-05-2024 take 10 mg by mouth once daily Lisinopril Active 10 MG PO Daily 90 April 05, 2024 12:28pm Start: 10-01-2023 End: 11-26-2023 take 10 mg by mouth once daily Lisinopril Discontinued 10 MG PO Daily October 01, 2023 9:14am November 26, 2023 7:34am Start: 10-01-2023 End: 11-03-2023 take 10 mg by mouth once daily Lisinopril Discontinued 10 MG PO Daily October 01, 2023 12:00am November 03, 2023 1:25pm Start: 12-07-2021 End: 10-01-2023 take 1 tablet by mouth once daily lisinopril 20 MG tablet Take 20 mg by mouth Daily 05/01/2023 Active LISINOPRIL PO Li sinopril Active take 1 tablet by miranda th every twenty-four hours Lisinopril 10 MG 1 tablet Orally Once a day for 90 days Active Lisinopril Activ e melatonin 10 mg oral tablet (20 sources) Start: 10-01-2023 End: 10-01-2023 take 1 mg by mouth once daily at bedtime Melatonin Active MG PO Daily at bedtime October 01, 2023 9:15am Melatonin 2.5 MG chewable tablet Chew Active take 1 tablet by miranda th every twenty-four hours Melatonin 10 MG 1 tablet at bedtime as needed Orally Once Daily PRN Active take 1 tablet by miranda th once daily at bedtime as needed Melatonin 10 MG 1 tablet at bedtime as needed Orally Once Daily PRN Active Melatonin PRN Ac tive meloxicam 15 mg oral tablet (6 sources) Nonsteroidal Anti-inflammatory Drug Start: 06-15-2024 Meloxicam Active MG PO June 14, 2024 11:00pm take 1 tablet by mouth once mary y meloxicam (Mobic) 15 MG tablet Take 15 mg by mouth Daily Active 24 hr metFORMIN hydrochloride 500 mg extended release oral tablet (20 sources) Biguanide Start: 04-01-2024 End: 04-01-2025 take 2 tablets by mouth every twenty-four hours at mealtime metFORMIN XR (Glucophage-XR) 500 MG 24 hr tablet Indications: PCOS (polycystic ovarian syndrome) Take 2 tablets (1,000 mg) by mouth in the evening. Take with meals Do not crush, chew, or split. 60 tablet 11 04/01/2024 04/01/2025 Active Start: 11-26-2023 take 1000 mg by mout h once daily Metformin Active 1000 MG PO Daily November 25, 2023 11:00pm Start: 02-12-2020 End: 11-26-2023 take 1 tablet by mouth twice daily Metformin Discontinued 500 MG PO Twice daily October 01, 2023 12:00am November 26, 2023 7:34am FreeTextSi tablet with a meal Orally twice daily; Note: Source Status: Taking; Provider: Tari Dyer ( ) metFORMIN, OSM, (Fortamet) 500 MG 24 hr tablet metFORMIN HCl Active Metformin & Diet Manage Prod (5 sources) Metformin & Diet Manage Prod Active Multiple Vitamins-Minerals (MULTI COMPLETE PO) (4 sources) Multiple Vitamins-Minerals (MULTI COMPLETE PO) Multi Complete Active Multivitamin preparation (20 sources) Start: 12-07-2021 [...] tablet Orally tid prn ODT Jun, Active polysaccharide iron complex 391 mg oral capsule (4 sources) Start: 03-17-2024 End: 03-17-2025 take 1 capsule by mouth once daily iron polysaccharides (ProFe) 391.3 (180 Fe) MG capsule Indications: Low iron Take 1 capsule (391.3 mg) by mouth Daily 30 capsule 6 03/17/2024 03/17/2025 Active valACYclovir 1000 mg oral tablet (20 sources) Herpesvirus Nucleoside Analog DNA Polymerase Inhibitor, Herpes Simplex Virus Nucleoside Analog DNA Polymerase Inhibitor, Herpes Zoster Virus Nucleoside Analog DNA Polymerase Inhibitor Start: 06-07-2024 End: 06-23-2024 take 1 tablet by mouth in the morning valACYclovir (Valtrex) 1 g tablet Indications: Herpes simplex of female genitalia Take 1 tablet (1,000 mg) by mouth in the morning and 1 tablet (1,000 mg) before bedtime. Do all this for 10 days. 20 tablet 06/07/2024 06/23/2024 Active Start: 02-12-2020 End: 01-08-2024 Valacyclovir (Valtrex) 1 gra m tablet Discontinued 1000 MG PO Daily October [...] propionate 0.05 mg/actuat metered dose nasal spray (16 sources) Corticosteroid Start: 10-01-2023 End: 11-26-2023 Fluticasone Propionate Discontinued 2 SPRAY INTRANASAL Daily October 01, 2023 12:00am November 26, 2023 7:33am Start: 06-29-2023 take 2 spray(s) nasa l route once daily fluticasone (Flonase) 50 MCG/ACT nasal spray Administer 2 sprays into each nostril Daily 06/29/2023 Active Start: 06-29-2023 take 2 spray(s) nasa l [...] Discontinued 100 MG PO Every 12 hours 10 June 14, 2024 11:00pm June 21, 2024 11:32am must administer with a meal/food Start: 05-31-2021 take 1 capsule by mo [facility] every twelve hours Macrobid 100 MG 1 cap(s) Orally bid for 5 day(s) May, Active phenazopyridine hydrochloride 200 mg oral tablet (4 sources) Start: 06-15-2024 End: 06-21-2024 take 1 tablet by mouth three times daily Phenazopyridine (Pyridium) 200 mg tablet Discontinued 200 MG PO Three times daily 04 20June 14, 2024 11:00pm June 21, 2024 11:24am Start: 05-31-2021 take 1 tablet by [facility] every eight hours Pyridium 200 MG 1 tablet after meals Orally Three times a day for 2 day(s) May, Active predniSONE 20 mg oral tablet (5 sources) Start: 06-29-2023 take 1 tablet by mouth every twelve hours predniSONE 20 MG 1 tablet Orally bid for 5 day(s) Jun, Not-Taking Start: 06-17-2021 take 1 tablet by [facility] every twelve hours predniSONE 20 MG 1 tablet Orally bid for 5 day(s) May, Active ubidecarenone 200 mg oral capsule (6 sources) Start: 11-26-2023 End: 04-21-2024 Coenzyme Q10 Discontinued 20 0 MG PO Daily November 25, 2023 11:00pm April 21, 2024 1:36pm Problems Active Problems Problem Classification Problem Date Documented Da te Episodic/Chronic Anxiety disorders (16 sources) Anxiety; Translations: [Anxiety disorder, unspecified] Chronic [...] Translations: [Iron deficiency anemia, unspecified] 06-08-2024 Episodic Epilepsy; convulsions (15 sources) Seizure disorder; Translations: [Epilepsy, unspecified, not intractable, without status epilepticus] Onset: 10-08-2023 Chronic Essential hypertension (20 sources) Essential hypertension; Translations: [Essential (primary) hypertension] Onset: 02-11-2023 Chronic Headache; including migraine (20 sources) Refractory migraine without aura; Translations: [Migraine without aura, intractable, without status migrainosus] Chronic Immunizations and screening for infectious disease (7 sources) Contact with and (suspected) exposure to other viral communicable diseases; Translations: [Encounter for screening for human papillomavirus (HPV)] Onset: 06-17-2021 Resolved: 07-06-2021 Episodic Malaise and fatigue (6 sources) Fatigue; Translations: [Other fatigue] 04-22-2024 Episodic Menstrual disorders (20 sources) Amenorrhea; Translations: [Amenorrhea, unspecified] Onset: 03-07-2022 Chronic Mood disorders (20 sources) Recurrent major depression in partial remission; Translations: [Major depressive disorder, recurrent, in partial remission] Onset: 05-31-2024 Chronic Nausea and vomiting (1 source) Nausea with vomiting, unspecified Episodic Nutritional deficiencies (6 sources) Iron deficiency; Translations: [Iron deficiency] 11-04-2023 Episodic Other endocrine disorders (20 sources) Polycystic ovary syndrome; Translations: [Polycystic ovarian syndrome] 10-01-2023 Chronic Other endocrine disorders (9 sources) Polycystic ovarian syndrome; Translations: [Polycystic ovaries] Onset: 07-01-2023 Chronic Other endocrine disorders (4 sources) Polycystic ovary; Translations: [Polycystic ovarian syndrome] Onset: 02-11-2023 02-11-2023 Chronic Other female genital disorders (4 sources) Abnormal uterine and vaginal bleeding, unspecified; Translations: [ABNORMAL UTERINE VAGINAL BLEED UNS] Onset: 11-26-2022 Chronic Other female genital disorders (4 sources) Abnormal uterine bleeding; Translations: [Abnormal uterine and vaginal bleeding, unspecified] Onset: 02-11-2023 02-11-2023 Chronic Other female genital disorders (4 sources) Pain in female genitalia on intercourse; Translations: [Unspecified dyspareunia] Onset: 02-11-2023 02-11-2023 Chronic Other gastrointestinal disorders (1 source) Diarrhea, [...] [Aphasia] 04-21-2024 Chronic Other nervous system disorders (8 sources) Neuropathy; Translations: [Polyneuropathy, unspecified] Onset: 05-31-2024 04-12-2024 Chronic Other nervous system disorders (4 sources) Aphasia; Translations: [Aphasia] 04-21-2024 Chronic Other nervous system disorders (4 sources) Carpal tunnel syndrome of right wrist; Translations: [Carpal tunnel syndrome, right upper limb] Onset: 05-31-2024 05-31-2024 Chronic Other nervous system disorders (7 sources) Paresthesia of skin; Translations: [Paresthesia of both hands] Episodic Other nervous system disorders (4 sources) Impaired cognition; Translations: [Other symptoms and signs involving cognitive functions and awareness] 06-23-2024 Episodic Other nervous system disorders (4 sources) Paresthesia; Translations: [Paresthesia of skin] Onset: 05-31-2024 05-31-2024 Episodic Other nutritional; endocrine; and metabolic disorders (13 sources) Body mass index 30+ - obesity; Translations: [Body mass index (BMI) 33.0-33.9, adult] Chronic Other nutritional; endocrine; and metabolic disorders (19 sources) Morbid obesity; Translations: [Morbid (severe) obesity due to excess calories] Onset: 02-11-2023 04-22-2024 Chronic Other nutritional; endocrine; and metabolic [...] other specified aftercare] Onset: 07-19-2023 Viral infection (4 sources) Herpes simplex of female genitalia; Translations: [Herpesviral infection of other urogenital tract] Onset: 02-11-2023 02-11-2023 Chronic Viral infection (10 sources) Viral infection, unspecified; Translations: [Herpes simplex] Episodic Past or Other Problems Problem Classification Problem Date Documented Da te Episodic/Chronic Administrative/social admission (20 sources) Dietary counseling and surveillance; Translations: [Other specified counseling] Onset: 10-01-2023 Episodic Deficiency and other anemia (4 sources) Anemia; Translations: [Anemia, unspecified] Onset: 02-11-2023 02-11-2023 Episodic Diabetes mellitus without complication (15 sources) Impaired fasting glucose; Translations: [Prediabetes] Onset: 10-01-2023 Episodic Genitourinary symptoms and ill-defined conditions (7 sources) Dysuria; Translations: [Hematuria, unspecified] Onset: 06-03-2018 Resolved: 05-31-2021 Episodic Other endocrine disorders (4 sources) Disorder of endocrine system; Translations: [Endocrine disorder, unspecified] Onset: 02-11-2023 02-11-2023 Episodic Other lower respiratory disease (1 source) Personal history of other diseases of the respiratory system; Translations: [History of asthma Z87.09] Onset: 06-17-2021 Resolved: 06-17-2021 Episodic Other nutritional; endocrine; and metabolic disorders (4 sources) Abnormal weight gain; Translations: [Abnormal weight gain] Onset: 02-11-2023 02-11-2023 Episodic Unclassified (3 sources) Contact with and (suspected) exposure to covid-19 Z20.822 Unclassified (1 source) Low back pain, unspecified M54.50 Urinary tract infections (15 sources) Urinary tract infection, site not specified; Translations: [Acute urinary tract infection] Onset: 06-03-2018 Resolved: 05-31-2021 Episodic Viral infection (1 source) COVID-19 Onset: 07-06-2021 Resolved: 07-06-2021 Results Test Name Value Interpretation Reference Range Facility Urine Cultureon 06-25-2024 Bacteria identified Cx Nom (U) 30,000 colonies/ml mixed bacterial skin contaminants 2 Days PERFORMED BY: [place] [address] PATHOLOGIST PRECISION HONING MACHINE OPERATOR NESHA MAIER M.D. Normal [facility] Comment on above: Performed By: #### C UU #### [address] Basophils Auto (Bld) [#/Vol] on 06-15-2024 Basophils (Bld) [#/Vol] 0.1 10 3/uL 0.0-0.[address] [facility] Basophils/100 WBC Auto (Bld) on 06-15-2024 Basophils/100 WBC (Bld) 0.7 % 0.2-2.0 [facility] Chlamydia trachomatis DNA [P resence] in Specimen by SURI with probe detectionOrdered By: Casandra Hassan on 06-15-2024 C. trachomatis DNA SURI+probe Ql (Unsp spec) Negative Negative [facility] Chlamydia/GC/Trich NAAon Chlamydia Trachomotis, SURI Negative Normal Negative [facility] Comment on above: Performed By: #### C UU #### [facility] [address] [place] [address] #### GCCHLAMTRI #### [facility] , Neisseria Gonorrhoeae, SURI Negative Normal Negative [facility] Comment on above: Performed By: #### C UU #### [place] [address] [place] #### GCCHLAMTRI #### [facility] , Trichomonas SURI Negative Normal Negative [facility] Comment on above: Result Comment: Perf ormed at: =G - [facility] [place] [address] Yasir Mccarty W [id number] Systems Support Officer: Monse Cardona MD, Phone: [phone] PERFORMED BY: [place] [address] PATHOLOGIST PRECISION HONING MACHINE OPERATOR NESHA MAIER M.D. Performed By: #### C UU #### [address] #### GCCHLAMTRI #### [facility] , Eosinophils/100 WBC Auto (Bl d)on 06-15-2024 Eosinophils/100 WBC (Bld) 1.1 % 0.9-7.[address] [facility] Erythrocyte distribution wid th Auto (RBC) [Ratio]on 06-15-2024 Erythrocyte distribution width (RBC) [Ratio] 16.4 % High 11.0-15.[address] [facility] Estimated glomerular filtrat ion rate (GFR) non- Americanon 06-15-2024 GFR/1.73 sq M.predicted among non-blacks MDRD (S/P/Bld) [Vol rate/Area] mL/min/{1.73_m2} >=60 mL/min/1.73 m [address] [facility] Globulin Calc (S) [Mass/Vol] on 06-15-2024 Globulin (S) [Mass/Vol] 4.1 g/dL F [facility] HCG ( test) IA.rapi d Ql (U)on 06-15-2024 HCG ( test) Ql (U) Negative NEGATIVE [facility] Hematocrit Auto (Bld) [Volum e fraction]on 06-15-2024 Hematocrit (Bld) [Volume fraction] 42.5 % 36.0-48.[address] [facility] Hemoglobin [Mass/volume] in Bloodon 06-15-2024 Hemoglobin (Bld) [Mass/Vol] 13.6 g/dL 12.0-16.[address] [facility] Laboratory - Chemistry and C hemistry - challengeon 06-15-2024 Bilirubin Ql (U) Negative NEGATIVE [facility] Glucose (U) [Mass/Vol] Negative NEGATIVE [facility] Ketones Ql (U) Negative NEGATIVE [facility] pH (U) 6.0 [pH] 5.0-9.[address] [facility] Specific gravity (U) [Rel density] 1.025 1.005-1.[address] [facility] Urobilinogen Qn (U) 0.2 {Tamiko'U}/dL 0.2-1.[address] [facility] Albumin [Mass/Vol] 3.6 g/dL 3.4-5.0 [facility] ALP [Catalytic activity/Vol] 76 U/L 46-[address] [facility] ALT [Catalytic activity/Vol] 46 U/L 14-[address] [facility] AST [Catalytic activity/Vol] 29 U/L 15-[address] [facility] Bilirubin [Mass/Vol] 0.4 mg/dL 0.2-1.0 [facility] Calcium [Mass/Vol] 9.5 mg/dL 8.5-10.1 [facility] Chloride [Moles/Vol] 103 mmol/L 98-107 [facility] CO2 [Moles/Vol] 26.4 mmol/L 21.0-32.0 [facility] Creatinine [Mass/Vol] 0.83 mg/dL 0.55-1.02 [facility] GFR/1.73 sq M.predicted MDRD (S/P/Bld) [Vol rate/Area] mL/min/{1.73_m2} >=60 mL/min/1.73 m [address] [facility] Glucose [Mass/Vol] 102 mg/dL 74-106 [facility] Lactate [Moles/Vol] 1.9 mmol/L 0.4-2.0 [facility] Lipase [Catalytic activity/Vol] 32.0 U/L 16.0-77.[address] [facility] Potassium [Moles/Vol] 3.9 mmol/L 3.5-5.1 [facility] Protein [Mass/Vol] 7.7 g/dL 6.4-8.2 [facility] Sodium [Moles/Vol] 139 mmol/L 136-145 [facility] Urea nitrogen [Mass/Vol] 9.0 mg/dL 7.0-18.[address] [facility] Urea nitrogen/Creatinine [Mass ratio] 10.8 mg/mg [facility] Laboratory - Hematology and Cell countson 06-15-2024 Immature granulocytes/100 WBC (Bld) 0.2 % 0.0-0.[address] [facility] Laboratory - Microbiology an d Antimicrobial susceptibilityOrdered By: Casandra Hassan on 06-15-2024 Bacteria identified Cx Nom (U) Escherichia coli (ESBL) Abnormal [facility] Laboratory - Specimen inform ationon 06-15-2024 Appearance (U) CLEAR CLEAR [facility] Color (U) LT. YELLOW YELLOW [facility] Laboratory - Urinalysison Leukocyte esterase Test strip Ql (U) TRACE Abnormal NEGATIVE [facility] Mucus Ql (Urine sed) TRACE Abnormal NONE SEEN [facility] Nitrite Ql (U) Positive Abnormal NEGATIVE [facility] Protein Ql (U) >=300 mg/dL Abnormal NEG/TRACE [facility] Leukocytes [#/volume] correc carmelita for nucleated erythrocytes in Blood by Automated counon 06-15-2024 WBC corrected for nucl RBC Auto (Bld) [#/Vol] 12.7 10 3/uL High 4.0-11.[address] [facility] Lymphocytes Auto (Bld) [#/Vo l]on 06-15-2024 Lymphocytes (Bld) [#/Vol] 2.9 10 3/uL 1.2-3.[address] [facility] Lymphocytes/100 WBC Auto (Bl d)on 06-15-2024 Lymphocytes/100 WBC (Bld) 23.0 % 20.5-60.[address] [facility] MCH Auto (RBC) [Entitic mass ]on 06-15-2024 MCH (RBC) [Entitic mass] 26.7 pg 26.7-34.[address] [facility] MCHC Auto (RBC) [Mass/Vol]on 06-15-2024 MCHC (RBC) [Mass/Vol] 32.0 g/dL 29.9-35.2 [facility] MCV Auto (RBC) [Entitic vol] on 06-15-2024 MCV (RBC) [Entitic vol] 83.5 fL 81.0-99.0 F [facility] Monocytes Auto (Bld) [#/Vol] on 06-15-2024 Monocytes (Bld) [#/Vol] 0.6 10 3/uL 0.3-0.[address] [facility] Monocytes/100 WBC Auto (Bld) on 06-15-2024 Monocytes/100 WBC (Bld) 4.9 % 1.7-12.0 F [facility] Neisseria gonorrhoeae DNA [P resence] in Specimen by SURI with probe detectionOrdered By: Casandra Hassan on 06-15-2024 N. gonorrhoeae DNA SURI+probe Ql (Unsp spec) Negative Negative [facility] Neutrophils Auto (Bld) [#/Vo l]on 06-15-2024 Neutrophils (Bld) [#/Vol] 8.9 10 3/uL High 1.4-6.[address] [facility] Neutrophils/100 WBC Auto (Bl d)on 06-15-2024 Neutrophils/100 WBC (Bld) 70.1 % 43.0-75.[address] [facility] No Panel Informationon 06-15 Miscellaneous Test Comment See comment [facility] Comment on above: Specimen Source: UCC - Urine,Clean Catch - Urine CC - 200.100 Urine Bacteria SMALL #/HPF Abnormal NONE SEEN [facility] Urine Culture Reflexed YES [facility] Urine Culture Result 1 \R\ Urine Culture , Routine\R\ Organism: Gram negative jus : [facility] Urine Microscopic Review YES [facility] Urine Occult Blood MODERATE Abnormal NEGATIVE [facility] Urine Other Casts NONE SEEN #/LPF NONE SEEN [facility] Urine Other Crystals None Seen #/HPF None Seen [facility] Urine RBC 10-20 #/HPF Abnormal 0-[address] [facility] Urine Squamous Epithelial Cells FEW #/LPF Abnormal NONE/RARE [facility] Urine WBC 20-50 #/HPF Abnormal NONE SEEN [facility] Eosinophils # (Auto) 0.1 10 3/uL 0.0-0.7 [facility] Immature Granulocyte # (Auto) 0.03 10 3/uL 0.00-0.[address] [facility] Platelet mean volume Auto (B ld) [Entitic vol]on 06-15-2024 Platelet mean volume (Bld) [Entitic vol] 10.0 fL 9.5-13.[address] [facility] Platelets Auto (Bld) [#/Vol] on 06-15-2024 Platelets (Bld) [#/Vol] 308 10 3/uL 150-[address] [facility] RBC Auto (Bld) [#/Vol]on RBC (Bld) [#/Vol] 5.09 10 6/uL 4.20-5.40 [facility] Serum or plasma albumin/glob ulin mass ratioon 06-15-2024 Albumin/Globulin [Mass ratio] 0.9 {ratio} [facility] Serum or plasma anion gap de terminationon 06-15-2024 Anion gap [Moles/Vol] 13.5 mmol/L [facility] Trichomonas vaginalis DNA [P resence] in Specimen by SURI with probe detectionOrdered By: Casandra Hassan on 06-15-2024 T. vaginalis DNA SURI+probe Ql (Unsp spec) Negative Negative [facility] Comment on above: Performed at: =G - L [address] [id number] Director: Monse Cardona MD, Phone: [phone] Urine Cultureon 06-15-2024 Bacteria identified Cx Nom (U) ORGANISM: Escherichia coli (ESBL) (O:ESCCOLESBL) [place] Count >100,000 Aerobic RENATE Charge (NMIC56) ----- [...] RESISTANT TO ALL B-LACTAM DRUGS. PERFORMED BY: [place] [address] PATHOLOGIST PRECISION HONING MACHINE OPERATOR NESHA MAIER M.D. Normal [facility] Comment on above: Performed By: #### C UU #### [place] [address] [place] #### [id number] #### [facility] , Iron binding [...] Medical Center Comment on above: Performed at: [address] [id number] Director: Cassius Zhong PhD, Phone: [phone] Iron [Mass/Vol] 76.0 ug/dL 50.0-170.[address] [facility] TSH Qn 2.211 m[IU]/L 0.358-3.[address] [facility] Basophils Auto (Bld) [#/Vol] on 04-12-2024 Basophils (Bld) [#/Vol] 0.1 10 3/uL 0.0-0.[address] [facility] Basophils/100 WBC Auto (Bld) on 04-12-2024 Basophils/100 WBC (Bld) 0.6 % 0.2-2.0 [facility] Buprenorphine [Presence] in Urineon 04-12-2024 Buprenorphine Ql (U) Negative NEGATIVE [facility] Comment on above: DRUG CLASS [...] 04-12-2024 Globulin (S) [Mass/Vol] 4.1 g/dL F [facility] HCG ( test) IA.rapi d Ql (U)on [...] 04-12-2024 Albumin [Mass/Vol] 3.3 g/dL Low 3.4-5.0 [facility] ALP [Catalytic activity/Vol] 75 U/L 46-[address] [facility] ALT [Catalytic activity/Vol] 36 U/L 14-[address] [facility] AST [Catalytic activity/Vol] 19 U/L 15-[address] [facility] Bilirubin [Mass/Vol] 0.3 mg/dL 0.2-1.0 [facility] Calcium [Mass/Vol] 8.6 mg/dL 8.5-10.1 [facility] Chloride [Moles/Vol] 101 mmol/L 98-107 [facility] CO2 [Moles/Vol] 28.7 mmol/L 21.0-32.0 [facility] Creatinine [Mass/Vol] 0.70 mg/dL 0.55-1.02 [facility] GFR/1.73 sq M.predicted MDRD (S/P/Bld) [Vol rate/Area] mL/min/{1.73_m2} >=[address] [facility] Glucose [Mass/Vol] 103 mg/dL 74-106 [facility] Potassium [Moles/Vol] 3.7 mmol/L 3.5-5.1 [facility] Protein [Mass/Vol] 7.4 g/dL 6.4-8.2 [facility] Sodium [Moles/Vol] 136 mmol/L 136-145 [facility] Urea nitrogen [Mass/Vol] 10.0 mg/dL 7.0-18.[address] [facility] Urea nitrogen/Creatinine [Mass ratio] 14.3 mg/mg [facility] Bilirubin Ql (U) Negative NEGATIVE [facility] Glucose (U) [Mass/Vol] Negative NEGATIVE [facility] Ketones Ql (U) Negative NEGATIVE [facility] pH (U) 6.0 [pH] 5.0-9.[address] [facility] Specific gravity (U) [Rel density] >=1.030 Abnormal 1.005-1.[address] [facility] Urobilinogen Qn (U) 0.2 {Tamiko'U}/dL 0.2-1.[address] [facility] Laboratory - Drug toxicology on 04-12-2024 Amphetamines Ql (U) Negative NEGATIVE [facility] Benzodiazepines Ql (U) Negative NEGATIVE [facility] Cocaine Ql (U) Negative NEGATIVE [facility] Opiates Ql (U) Negative NEGATIVE [facility] Phencyclidine Ql (U) Negative NEGATIVE [facility] Laboratory - Hematology and Cell [...] Ql (Urine sed) TRACE Abnormal NONE SEEN [facility] Nitrite Ql (U) Negative NEGATIVE [...] 04-12-2024 MCHC (RBC) [Mass/Vol] 30.6 g/dL 29.9-35.2 [facility] MCV Auto (RBC) [Entitic vol] on 04-12-2024 MCV (RBC) [Entitic vol] 80.1 fL Low 81.0-99.0 [facility] Methadone [Presence] in Urin e by Screen methodon 04-12-2024 Methadone Screen Ql (U) Negative NEGATIVE [facility] Monocytes Auto (Bld) [#/Vol] on 04-12-2024 Monocytes (Bld) [#/Vol] 0.5 10 3/uL 0.3-0.[address] [facility] Monocytes/100 WBC Auto (Bld) on 04-12-2024 Monocytes/100 WBC (Bld) 4.7 % 1.7-12.0 [facility] Neutrophils Auto (Bld) [#/Vo l]on 04-12-2024 Neutrophils (Bld) [#/Vol] 5.7 10 3/uL 1.4-6.[address] [facility] Neutrophils/100 WBC Auto (Bl d)on 04-12-2024 Neutrophils/100 WBC (Bld) 57.9 % 43.0-75.[address] [facility] No Panel Informationon 04-12 Acetaminophen Level <2.0 ug/mL Low 10.0-30.0 [facility] Eosinophils # (Auto) 0.1 10 3/uL 0.0-0.7 [facility] Ethyl Alcohol Level <3 mg/dL [facility] Comment on above: NOTE: 80 mg/dl is th e legal limit for a blood alcohol level Immature Granulocyte # (Auto) 0.03 10 3/uL 0.00-0.[address] [facility] Salicylates Level <2.8 mg/dL <=19.9 [facility] Urine Bacteria SMALL #/HPF Abnormal NONE SEEN [facility] Urine Barbiturates Screen Negative NEGATIVE [facility] Urine Culture Reflexed YES [facility] Urine Marijuana (THC) Screen Negative NEGATIVE [facility] Urine Methamphetamines Screen Negative NEGATIVE [facility] Urine Occult Blood Negative NEGATIVE [facility] Urine Other Casts NONE SEEN #/LPF NONE SEEN [facility] Urine Other Crystals None Seen #/HPF [...] RBC (Bld) [#/Vol] 4.73 10 6/uL 4.20-5.40 [facility] Serum or plasma albumin/glob ulin mass ratioon 04-12-2024 Albumin/Globulin [Mass ratio] 0.8 {ratio} [facility] Serum or plasma anion gap de terminationon 04-12-2024 Anion gap [Moles/Vol] 10.0 mmol/L [facility] Urine tricyclic antidepressa nt measurementon 04-12-2024 [...] (Bld) 0.5 % 0.2-2.0 [facility] Eosinophils/100 WBC Auto (Bl d)on 11-03-2023 Eosinophils/100 [...] (S) [Mass/Vol] 4.0 g/dL F [facility] Hematocrit Auto (Bld) [Volum e fraction]on 11-03-2023 [...] types (16,18,31,33,35,39,45,51,52,56,58,59,66,68)without differentiation.Performed at: =G - [facility] [address] [id number] Director: Monse Cardona MD, Phone: [phone] at: WB - [facility] [address] [id number] Director: Monse Cardona MD, Phone: [phone] Iron binding capacity [Mass/ volume] in Serum or Plasmaon 11-03-2023 Iron binding capacity [Mass/Vol] 512.0 ug/dL 250.0-450.[address] [facility] Iron saturation [Mass Fracti on] in Serum or Plasmaon 11-03-2023 Iron saturation [Mass fraction] 2.7 % [facility] Laboratory - Chemistry and C hemistry - challengeon 11-03-2023 Albumin [Mass/Vol] 3.1 g/dL 3.4-5.0 [facility] ALP [Catalytic activity/Vol] 63 U/L 46-[address] [facility] ALT [Catalytic activity/Vol] 29 U/L 14-[address] [facility] AST [Catalytic activity/Vol] 18 U/L 15-[address] [facility] Bilirubin [Mass/Vol] 0.2 mg/dL 0.2-1.0 [facility] Calcium [Mass/Vol] 8.7 mg/dL 8.5-10.1 [facility] Chloride [Moles/Vol] 102 mmol/L 98-107 [facility] CO2 [Moles/Vol] 27.6 mmol/L 21.0-32.0 [facility] Creatinine [Mass/Vol] 0.70 mg/dL 0.55-1.02 [facility] Ferritin [Mass/Vol] 6.0 ng/mL 8.0-252.0 [facility] GFR/1.73 sq M.predicted MDRD (S/P/Bld) [Vol rate/Area] mL/min/{1.73_m2} >=[address] [facility] Glucose [Mass/Vol] 103 mg/dL 74-106 [facility] Iron [Mass/Vol] 14.0 ug/dL 50.0-170.[address] [facility] Potassium [Moles/Vol] 3.8 mmol/L 3.5-5.1 [facility] Protein [Mass/Vol] 7.1 g/dL 6.4-8.2 [facility] Sodium [Moles/Vol] 139 mmol/L 136-145 [facility] Urea nitrogen [Mass/Vol] 11.0 mg/dL 7.0-18.0 [facility] [...] vol] 82.9 fL 81.0-99.0 [facility] Monocytes Auto (Bld) [#/Vol] on 11-03-2023 Monocytes (Bld) [#/Vol] 0.4 10 3/uL 0.3-0.[address] [facility] Monocytes/100 WBC Auto (Bld) on 11-03-2023 Monocytes/100 WBC (Bld) 5.6 % 1.7-12.0 [facility] Neutrophils Auto (Bld) [#/Vo l]on 11-03-2023 Neutrophils (Bld) [#/Vol] 4.3 10 3/uL 1.4-6.[address] [facility] Neutrophils/100 WBC Auto (Bl d)on 11-03-2023 Neutrophils/100 WBC (Bld) 58.5 % 43.0-75.[address] [facility] No Panel Informationon 11-02 Eosinophils # (Auto) 0.1 10 3/uL 0.0-0.7 [facility] Immature Granulocyte # (Auto) 0.03 10 [...] (endocervical component) are present.Performed by: Mikhail Escalante, Provider Contracting Consultant (ASCP). 02Note: Note 02 The Pap smear [...] <-Panic Low,>-Panic High,A-Abnormal,AA-Critical Abnormal -------Performed at:02 WB [facility] [place] [id number] Monse Cardona MD, Reference Lab Test Patient Age Note . [facility] Comment on above: TESTS RESULT FLAG UN ITS REF RANGE LAB -- Clinician Provided Cytology Information Source.............Cervix;Endocervix No. of containers..01 ThinPrep VialAge Jean-Pierre YOON Elise... 30-65 01 - FLAG LEGEND: L-Low Normal,H-High Normal,LL-Alert Low,HH-Alert High <-Panic Low,>-Panic High,A-Abnormal,AA-Critical Abnormal -------Performed at:01 =G [facility] [place] [address] [place] [address] Monse Cardona MD, Platelet mean volume Auto (B ld) [Entitic vol]on 11-03-2023 Platelet mean volume (Bld) [Entitic vol] 9.6 fL 9.5-13.[address] [facility] Platelets Auto (Bld) [#/Vol] on 11-03-2023 Platelets (Bld) [#/Vol] 323 10 3/uL 150-[address] [facility] RBC Auto (Bld) [#/Vol]on RBC (Bld) [#/Vol] 3.15 10 6/uL 4.20-5.40 [facility] Serum or plasma albumin/glob ulin mass ratioon 11-03-2023 Albumin/Globulin [Mass ratio] 0.8 {ratio} [facility] Serum or plasma anion gap de terminationon 11-03-2023 Anion gap [Moles/Vol] 13.2 mmol/L [facility] Basophils Auto (Bld) [#/Vol] on 10-30-2023 Basophils (Bld) [#/Vol] 0.0 10 3/uL 0.0-0.[address] [facility] Basophils/100 WBC Auto (Bld) on 10-30-2023 Basophils/100 WBC (Bld) 0.6 % 0.2-2.0 [facility] Eosinophils/100 WBC Auto (Bl d)on 10-30-2023 Eosinophils/100 [...] challengeon 10-30-2023 Calcium [Mass/Vol] 8.5 mg/dL 8.5-10.1 [facility] Chloride [Moles/Vol] 101 mmol/L 98-107 [facility] CO2 [Moles/Vol] 28.8 mmol/L 21.0-32.0 [facility] Creatinine [Mass/Vol] 0.62 mg/dL 0.55-1.02 [facility] GFR/1.73 sq M.predicted MDRD (S/P/Bld) [Vol rate/Area] mL/min/{1.73_m2} >=[address] [facility] Glucose [Mass/Vol] 104 mg/dL 74-106 [facility] Potassium [Moles/Vol] 4.0 mmol/L 3.5-5.1 [facility] Sodium [Moles/Vol] 137 mmol/L 136-145 [facility] Urea nitrogen [Mass/Vol] 8.0 mg/dL 7.0-18.0 [facility] [...] vol] 84.2 fL 81.0-99.0 F [facility] Monocytes Auto (Bld) [#/Vol] on 10-30-2023 Monocytes (Bld) [#/Vol] 0.3 10 3/uL 0.3-0.[address] [facility] Monocytes/100 WBC Auto (Bld) on 10-30-2023 Monocytes/100 WBC (Bld) 3.7 % 1.7-12.0 F [facility] Neutrophils Auto (Bld) [#/Vo l]on 10-30-2023 Neutrophils [...] RBC (Bld) [#/Vol] 3.16 10 6/uL 4.20-5.40 [facility] Serum or plasma anion gap de terminationon 10-30-2023 Anion gap [Moles/Vol] 11.2 mmol/L [facility] MR head/brain wo/w conon MR head/brain wo/w con [facility] [place] [place] [address] MRI Report Signed Patient: Ashly Mheta MR#: [id number] 8 : 1990 Acct:[id number] Age/Sex: 33 / F ADM Date: 10/08/23 Loc: MR Room: Type: [facility] Attending Dr: Gwen Cox DO Copies to: Gwen Cox DO Ordering Provider: Gwen Cox DO Date of Service: 10/08/23 MR/MR [...] M.D.10/08/2023 4:38 PM Dictation Location: [place] [address] Transcribed By: LAMINE 10/08/23 1638 Dictated By: Ivan Holliday II, MD 10/08/23 1630 Signed By: 10/08/23 1638 Normal [facility] HCG ( test) IA.rapi d Ql (U)on 10-06-2023 HCG ( test) Ql (U) Negative NEGATIVE [facility] COVID + FLU Quick Testingon 07-07-2023 SARS-CoV-2 (COVID-19) RNA SURI+probe Ql (Unsp spec) Negative [facility] [employer] Other COVID + FLU Quick Testing Negative [facility] [employer] Other Alanine aminotransferase [En zymatic activity/volume] in Serum or PlasmaOrdered By: Celio Mullins on 07-03-2023 ALT [Catalytic activity/Vol] 22 U/L Normal 7-[address] [facility] Comment on above: Performed By: #### C MP, LIPID #### [facility] [address] [place] [address] [place] Albumin [Mass/volume] in Ser um or [...] Performed By: #### C MP, LIPID #### [facility] [address] [place] [id number] [place] Aspartate aminotransferase [ Enzymatic activity/volume] in Serum or PlasmaOrdered By: Celio Mullins on 07-03-2023 AST [Catalytic activity/Vol] 18 U/L Normal 13-[address] [facility] Comment on above: Performed By: #### C MP, LIPID #### [facility] [address] [place] [address] [place] Bilirubin.total [Mass/volume ] in Serum or PlasmaOrdered By: Celio Mullins on 07-03-2023 Bilirubin [Mass/Vol] 0.4 mg/dL Normal 0.3-1.0 [facility] Comment on above: Performed By: #### C MP, LIPID #### [facility] [address] [place] [address] [place] Calcium [Mass/volume] in Ser um or PlasmaOrdered By: Celio Mullins on 07-03-2023 Calcium [Mass/Vol] 9.4 mg/dL Normal 8.6-10.3 [facility] Comment on above: Performed By: #### C MP, LIPID #### [facility] [address] [place] [address] [place] Carbon dioxide, total [Moles /volume] in Serum or PlasmaOrdered By: Celio Mullins on 07-03-2023 CO2 [Moles/Vol] 30.1 mmol/L Normal 21.0-31.0 [facility] Comment on above: Performed By: #### C MP, LIPID #### [facility] [address] [place] [address] [place] Chloride [Moles/volume] in S marta or PlasmaOrdered By: Celio Mullins on 07-03-2023 Chloride [Moles/Vol] 105 mmol/L Normal 98-107 [facility] Comment on above: Performed By: #### C MP, LIPID #### [facility] [address] [place] [address] [place] Cholesterol [Mass/volume] in Serum or PlasmaOrdered By: Celio Mullins on 07-03-2023 Cholesterol [Mass/Vol] 126 mg/dL Low 140-200 [facility] Comment on above: Chol less than 200 m g/dl low riskChol 201-239 mg/dl borderline riskChol 240 mg/dl and greater high risk Result Comment: Chol less than 200 mg/dl low risk Chol 201-239 mg/dl borderline risk Chol 240 mg/dl and greater high risk Performed By: #### C MP, LIPID #### [facility] [address] [place] [id number] [place] Cholesterol in LDL Calc [Mas s/Vol]Ordered [...] Albumin [Mass/Vol] 4.4 g/dL Normal 3.5-5.7 [facility] Comment on above: Performed By: #### C MP, LIPID #### [facility] [address] [place] [id number] [place] GFR/1.73 sq M.predicted MDRD (S/P/Bld) [Vol rate/Area] mL/min/{1.73_m2} Normal [facility] Comment on above: Performed By: #### C MP, LIPID #### [facility] [address] [place] [id number] [place] Creatinine [Mass/volume] in Serum or PlasmaOrdered By: Celio Mullins on 07-03-2023 Creatinine [Mass/Vol] 0.63 mg/dL Normal 0.60-1.20 [facility] Comment on above: Performed By: #### C MP, LIPID #### [facility] [address] [place] [id number] [place] Glucose [Mass/volume] in Ser um or PlasmaOrdered By: Celio Mullins on 07-03-2023 Glucose [Mass/Vol] 97 mg/dL Normal 70-100 [facility] Comment on above: ADA recommended refe rence rangeRandom Glucose Reference Range is dependent on time and content of last meal. Glucose of more than 200 mg/dL in a nonstressed, ambulatory subject supports the diagnosis of Diabetes Mellitus. Result Comment: [facility] Glucose Reference Range is dependent on time and content of last meal. Glucose of more than 200 mg/dL in a nonstressed, ambulatory subject supports the diagnosis of Diabetes Mellitus. ADA recommended reference range Performed By: #### C MP, LIPID #### [address] Lipid Panelon 07-03-2023 LDL Cholesterol,Calculated 69 mg/dL Normal 0-100 [facility] Comment on above: Result Comment: LDL ATP III CLASSIFICATION LDL less than 100 mg/dL Optimal LDL 100-129 mg/dL Near or above optimal LDL 130-159 mg/dL Borderline high LDL 160-189 mg/dL High LDL greater than 189 mg/dL Very high Performed By: #### C MP, LIPID #### [address] Triglyceride w/Reflex 92 mg/dL Normal 0-149 [facility] Comment on above: Result Comment: TRIG ATP III CLASSIFICATION TRIG less than 150 mg/dL Normal TRIG 150-199 mg/dL Borderline high TRIG 200-500 mg/dL High TRIG greater than 500 mg/dL Very high Standard traceable to the Center for Disease Conrtrol and Prevention (CDC) test method. Performed By: #### C MP, LIPID #### [address] VLDL CHOLESTEROL 18 mg/dL Normal [facility] Comment on above: Performed By: #### C MP, LIPID #### [address] No Panel InformationOrdered By: Celio [...] Performed By: #### C MP, LIPID #### [address] [place] [address] [place] Protein [Mass/volume] in Ser um or PlasmaOrdered By: Celio Mullins on 07-03-2023 Protein [Mass/Vol] 7.5 g/dL Normal 6.4-8.9 [facility] Comment on above: Performed By: #### C MP, LIPID #### [address] Serum globulin measurement b y calculation (mass/volume)Ordered By: Celio Mullins on 07-03-2023 Globulin (S) [Mass/Vol] 3.1 g/dL Normal F [facility] Comment on above: Performed By: #### C MP, LIPID #### [address] Serum or plasma albumin/glob ulin mass ratioOrdered By: Celio Mullins on 07-03-2023 Albumin/Globulin [Mass ratio] 1.4 {ratio} Normal [facility] Comment on above: Performed By: #### C MP, LIPID #### [address] Serum or plasma anion gap de terminationOrdered By: Celio Mullins on 07-03-2023 Anion gap [Moles/Vol] 10.2 mmol/L Normal 6.0-15.0 [facility] Comment on above: Performed By: #### C MP, LIPID #### [address] Serum or plasma high density lipoprotein [...] Performed By: #### C MP, LIPID #### [address] Serum or plasma total choles terol/high density lipoprotein (HDL) cholesterol mass ratOrdered By: Celio Mullins on 07-03-2023 Cholesterol.total/Choles terol in HDL [Mass ratio] 3.2 {ratio} Normal <5.[address] [facility] Comment on above: Result Comment: PERF ORMED BY: [place] [address] PATHOLOGIST PRECISION HONING MACHINE OPERATOR NESHA MAIER M.D. Performed By: #### C MP, LIPID #### [facility] [address] Sodium [Moles/volume] in Ser um or PlasmaOrdered By: Celio Mullins on 07-03-2023 Sodium [Moles/Vol] 141 mmol/L Normal 136-145 [facility] Comment on above: Performed By: #### C MP, LIPID #### [facility] [address] [place] [address] [facility] Triglyceride [Mass/volume] i n Serum or PlasmaOrdered By: Celio Mullins on 07-03-2023 Triglyceride [Mass/Vol] 92 mg/dL 0-149 [facility] Comment on above: TRIG ATP III CLASSIF [...] Performed By: #### C MP, LIPID #### [facility] [address] [place] [address] [place] A1C with Estimated Average G luon 07-01-2023 Glucose [Mass/Vol] 117 mg/dL Normal [facility] Comment on above: Order Comment: Reaso n for Exam Severe obesity (BMI >= 40);PCOS (polycystic ovarian syndrome Result Comment: PERF ORMED BY: [address] [address] PATHOLOGIST PRECISION HONING MACHINE OPERATOR NESHA MAIER M.D. Performed By: #### L IPA, APOB #### [facility] , #### CMP, A1C WT eA #### [facility] [address] [place] [address] [place] Alanine aminotransferase [En zymatic activity/volume] in Serum or PlasmaOrdered By: Celio Mullins on 07-01-2023 ALT [Catalytic activity/Vol] 21 U/L Normal 7-[address] [facility] Comment on above: Order Comment: Reaso n for Exam Severe obesity (BMI >= 40);PCOS (polycystic ovarian syndrome NON FASTING Performed By: #### L IPA, APOB #### [facility] , #### CMP, A1C [facility] eA #### [facility] [address] [place] [address] [place] Albumin [Mass/volume] in Ser um or [...] NON FASTING Result Comment: PERF ORMED BY: [place] [address] PATHOLOGIST PRECISION HONING MACHINE OPERATOR NESHA MAIER M.D. Performed By: #### L IPA, APOB #### [facility] , #### CMP, A1C [facility] eA #### [facility] [address] [place] [address] [place] Apolipoprotein B [Mass/volum e] in Serum [...] Risk <90 Moderate Risk <90Performed at: - [facility] [id number] Director: Jeanna Case MD, Phone: [phone] Order Comment: Reaso n for Exam Severe obesity (BMI >= 40);PCOS (polycystic ovarian syndrome Result Comment: Hedy rabzach < 90 Borderline High 90 - 99 High 100 - 130 Very High >130 ASCVD RISK THERAPEUTIC TARGET CATEGORY APO B (mg/dL) Very High Risk <80 (if extreme risk <70) High Risk <90 Moderate Risk <90 Performed at: [address] [id number] Systems Support Officer: Jeanna Case MD, Phone: [phone] PERFORMED BY: [place] [address] PATHOLOGIST PRECISION HONING MACHINE OPERATOR NESHA MAIER M.D. Performed By: #### L IPA, APOB #### [facility] , #### CMP, A1C [facility] eA #### [address] Aspartate aminotransferase [ Enzymatic activity/volume] in Serum or PlasmaOrdered By: Celio Mullins on 07-01-2023 AST [Catalytic activity/Vol] 19 U/L Normal 13-[address] [facility] Comment on above: Order Comment: Reaso n for Exam Severe obesity (BMI >= 40);PCOS (polycystic ovarian syndrome NON FASTING Performed By: #### L IPA, APOB #### [facility] , #### CMP, A1C WT eA #### [facility] [address] [id number] [place] Bilirubin.total [Mass/volume ] in Serum or PlasmaOrdered By: Celio Mullins on 07-01-2023 Bilirubin [Mass/Vol] 0.4 mg/dL Normal 0.3-1.0 [facility] Comment on above: Order Comment: Reaso n for Exam Severe obesity (BMI >= 40);PCOS (polycystic ovarian syndrome NON FASTING Performed By: #### L IPA, APOB #### [facility] , #### CMP, A1C WTH eA #### [facility] [address] [id number] [place] Calcium [Mass/volume] in Ser um or PlasmaOrdered By: Celio Mullins on 07-01-2023 Calcium [Mass/Vol] 9.8 mg/dL Normal 8.6-10.3 [facility] Comment on above: Order Comment: Reaso n for Exam Severe obesity (BMI >= 40);PCOS (polycystic ovarian syndrome NON FASTING Performed By: #### L IPA, APOB #### [facility] , #### CMP, A1C WTH eA #### [facility] [address] [place] [address] [place] Carbon dioxide, total [Moles /volume] in Serum or PlasmaOrdered By: Celio Mullins on 07-01-2023 CO2 [Moles/Vol] 25.3 mmol/L Normal 21.0-31.0 [facility] Comment on above: Order Comment: Reaso n for Exam Severe obesity (BMI >= 40);PCOS (polycystic ovarian syndrome NON FASTING Performed By: #### L IPA, APOB #### [facility] , #### CMP, A1C WTH eA #### [facility] [address] [id number] [place] Chloride [Moles/volume] in S marta or PlasmaOrdered By: Celio Mullins on 07-01-2023 Chloride [Moles/Vol] 105 mmol/L Normal 98-107 [facility] Comment on above: Order Comment: Reaso n for Exam Severe obesity (BMI >= 40);PCOS (polycystic ovarian syndrome NON FASTING Performed By: #### L IPA, APOB #### [facility] , #### CMP, A1C WTH eA #### [facility] [address] [id number] [place] Comprehensive Metabolic Pane landon 07-01-2023 Albumin [Mass/Vol] 4.6 g/dL Normal 3.5-5.7 [facility] Comment on above: Order Comment: Reaso n for Exam Severe obesity (BMI >= 40);PCOS (polycystic ovarian syndrome NON FASTING Performed By: #### L IPA, APOB #### [facility] , #### CMP, A1C WTH eA #### [facility] [address] [place] [address] [place] GFR/1.73 sq M.predicted MDRD (S/P/Bld) [Vol rate/Area] mL/min/{1.73_m2} Normal [facility] Comment on above: Order Comment: Reaso n for Exam Severe obesity (BMI >= 40);PCOS (polycystic ovarian syndrome NON FASTING Performed By: #### L IPA, APOB #### [facility] , #### CMP, A1C WT eA #### [facility] [address] [id number] [place] Creatinine [Mass/volume] in Serum or PlasmaOrdered By: Celio Mullins on 07-01-2023 Creatinine [Mass/Vol] 0.64 mg/dL Normal 0.60-1.20 [facility] Comment on above: Order Comment: Reaso n for Exam Severe obesity (BMI >= 40);PCOS (polycystic ovarian syndrome NON FASTING Performed By: #### L IPA, APOB #### [facility] , #### CMP, A1C WTH eA #### [facility] [address] [id number] [place] Glucose [Mass/volume] in Ser um or PlasmaOrdered By: Celio Mullins on 07-01-2023 Glucose [Mass/Vol] 95 mg/dL Normal 70-100 [facility] Comment on above: ADA recommended refe rence rangeRandom Glucose Reference Range is dependent on time and content of last meal. Glucose of more than 200 mg/dL in a nonstressed, ambulatory subject supports the diagnosis of Diabetes Mellitus. Order Comment: Michela n for Exam Severe obesity (BMI >= 40);PCOS (polycystic ovarian syndrome NON FASTING Result Comment: [place] om Glucose Reference Range is dependent on time and content of last meal. Glucose of more than 200 mg/dL in a nonstressed, ambulatory subject supports the diagnosis of Diabetes Mellitus. ADA recommended reference range Performed By: #### L IPA, APOB #### [facility] , #### CMP, A1C WTH eA #### [facility] [address] [id number] [facility] Glucose mean value [Mass/vol ume] in [...] for adults with diabetes: <7.0 Order Comment: Michela n for Exam Severe obesity (BMI >= 40);PCOS (polycystic ovarian syndrome Result Comment: Incr eased risk for diabetes: 5.7 - 6.4 diabetes: >6.4 glycemic control for adults with diabetes: <7.0 Performed By: #### L IPA, APOB #### [facility] , #### CMP, A1C WTH eA #### [facility] [address] [id number] [place] Lipoprotein (a)on 07-01-2023 Lipoprotein a [Mass/Vol] 13.0 mg/dL Normal <75.0 [facility] Comment on above: Order Comment: Michela n for Exam Severe obesity (BMI >= 40);PCOS (polycystic ovarian syndrome Result Comment: Note : Values greater than or equal to 75.0 nmol/L may indicate an independent risk factor for CHD, but must be evaluated with caution when applied to non- populations due to the influence of genetic factors on Lp(a) across ethnicities. Performed at: - [facility] [address] [id number] Systems Support Officer: Cassius Zhong PhD, Phone: [phone] Performed By: #### L IPA, APOB #### [facility] , #### CMP, A1C WTH eA #### [facility] [address] No Panel InformationOrdered By: Celio Mullins [...] ovarian syndrome NON FASTING Performed By: #### L IPA, APOB #### [facility] , #### CMP, A1C WTH eA #### [facility] [address] [place] [address] Protein [Mass/volume] in Ser um or PlasmaOrdered By: Celio Mullins on 07-01-2023 Protein [Mass/Vol] 7.8 g/dL Normal 6.4-8.9 [facility] Comment on above: Order Comment: Reaso n for Exam Severe obesity (BMI >= 40);PCOS (polycystic ovarian syndrome NON FASTING Performed By: #### L IPA, APOB #### [facility] , #### CMP, A1C WTH eA #### [facility] [address] Serum globulin measurement b y calculation (mass/volume)Ordered By: Celio Mullins on 07-01-2023 Globulin (S) [Mass/Vol] 3.2 g/dL Normal [facility] Comment on above: Order Comment: Reaso n for Exam Severe obesity (BMI >= 40);PCOS (polycystic ovarian syndrome NON FASTING Performed By: #### L IPA, APOB #### [facility] , #### CMP, A1C WT eA #### [address] Serum or plasma albumin/glob ulin mass ratioOrdered By: Celio Mullins on 07-01-2023 Albumin/Globulin [Mass ratio] 1.4 {ratio} Normal [facility] Comment on above: Order Comment: Reaso n for Exam Severe obesity (BMI >= 40);PCOS (polycystic ovarian syndrome NON FASTING Performed By: #### L IPA, APOB #### [facility] , #### CMP, A1C [facility] eA #### [address] Serum or plasma anion gap de terminationOrdered By: Celio Mullins on 07-01-2023 Anion gap [Moles/Vol] 11.5 mmol/L Normal 6.0-15.0 [facility] Comment on above: Order Comment: Reaso n for Exam Severe obesity (BMI >= 40);PCOS (polycystic ovarian syndrome NON FASTING Performed By: #### L IPA, APOB #### [facility] , #### CMP, A1C [facility] eA #### [address] Serum or plasma lipoprotein a measurement [...] genetic factors on Lp(a) across ethnicities.Performed at: [facility] [address] [id number] Director: Cassius Zhong PhD, Phone: [phone] Sodium [Moles/volume] in Ser um or PlasmaOrdered By: Celio Mullins on 07-01-2023 Sodium [Moles/Vol] 138 mmol/L Normal 136-145 [facility] Comment on above: Order Comment: Reaso n for Exam Severe obesity (BMI >= 40);PCOS (polycystic ovarian syndrome NON FASTING Performed By: #### L IPA, APOB #### [facility] , #### CMP, A1C WTH eA #### [facility] [address] Urea nitrogen [Mass/volume] in Serum or PlasmaOrdered By: Celio Mullins on 07-01-2023 Urea nitrogen [Mass/Vol] 16 mg/dL Normal 7-[address] [facility] Comment on above: Order Comment: Reaso n for Exam Severe obesity (BMI >= 40);PCOS (polycystic ovarian syndrome NON FASTING Performed By: #### L IPA, APOB #### [facility] , #### CMP, A1C WTH eA #### [facility] [address] [id number] [facility] COVID Quick Testingon 2022 Result Negative [employer] Other SARS-CoV-2 (COVID-19) RNA NA A+probe Ql (Resp)on 02-11-2023 SARS-CoV-2 (COVID-19) RNA SURI+probe Ql (Unsp spec) Negative [employer] Other DHEA-SULFATEon 01-01-2023 DHEA-Sulfate 95.3 ug/dL Normal 84.8-378.0 [facility] Comment on above: Performed By: #### D RIMA #### [facility] [address] [address] [address] Kaushik Palomares FSHon 01-01-2023 FSH 4.6 mIU/mL Normal [facility] Comment on above: Result Comment: Adul t Female: Follicular phase 3.5 - 12.5 Ovulation phase 4.7 - 21.5 Luteal phase 1.7 - 7.7 Postmenopausal 25.8 - 134.8 Performed By: #### C BC #### [facility] [address] [address] [address] Kaushik Palomares LUTEINIZING HORMONE (LH)on 01-01-2023 LH 3.5 mIU/mL Normal [facility] Comment on above: Result Comment: Adul t Female: Follicular phase 2.4 - 12.6 Ovulation phase 14.0 - 95.6 Luteal phase 1.0 - 11.4 Postmenopausal 7.7 - 58.5 Performed By: #### L BCLH #### [facility] [address] [place] [address] Dr. Kaushik Palomares CBC AUTO DIFFon 12-31-2022 BASO # 0.1 103/ul Normal 0.0-0.1 [facility] Comment on above: Performed By: #### C BC #### [facility] [address] [place] [address] Dr. Kaushik Palomares Basophils/100 WBC (Bld) 0.8 % Normal 0.2-2.0 [facility] Comment on above: Performed By: #### C BC #### [facility] [address] [place] [address] Dr. Kaushik Palomares EO # 0.1 103/ul Normal 0.0-0.7 [facility] Comment on above: Performed By: #### C BC #### [facility] [address] [place] [address] Dr. Kaushik Palomares Eosinophils/100 WBC (Bld) 1.7 % Normal 0.9-7.0 [facility] Comment on above: Performed By: #### C BC #### [facility] [address] [place] [address] Dr. Kaushik Palomares Erythrocyte distribution width (RBC) [Ratio] 12.8 % Normal 11.0-15.0 [facility] Comment on above: Performed By: #### C BC #### [facility] [address] [place] [address] Dr. Kaushik Palomares Hematocrit (Bld) [Volume fraction] 33.0 % Critically low 36.0-48.0 [facility] Comment on above: Performed By: #### C BC #### [facility] [address] [place] [address] Dr. Kaushik Palomares Hemoglobin (Bld) [Mass/Vol] 11.0 g/dL Critically low 12.0-16.0 [facility] Comment on above: Performed By: #### C BC #### [facility] [address] [place] [address] Dr. Kaushik Palomares IG # 0.03 10e3/ul Normal 0.00-0.03 [facility] Comment on above: Performed By: #### C BC #### [facility] [address] [place] [address] Dr. Kaushik Palomares IG % 0.5 % Normal 0.0-0.5 [facility] Comment on above: Performed By: #### C BC #### [facility] [address] [place] [address] Dr. Kaushik Palomares LYMPH # 2.4 103/ul Normal 1.2-3.8 [facility] Comment on above: Performed By: #### C BC #### [facility] [address] [place] [address] Dr. Kaushik Palomares Lymphocytes/100 WBC (Bld) 36.6 % Normal 20.5-60.0 [facility] Comment on above: Performed By: #### C BC #### [facility] [address] [place] [address] Dr. Kaushik Palomares MANUAL DIFF REQ NO Normal [facility] Comment on above: Performed By: #### C BC #### [facility] [address] [place] [address] Dr. Kaushik Palomares MCH (RBC) [Entitic mass] 29.0 pg Normal 26.7-34.0 [facility] Comment on above: Performed By: #### C BC #### [facility] [address] [place] [address] Dr. Kaushik Palomares MCHC (RBC) [Mass/Vol] 33.3 g/dL Normal 29.9-35.2 [facility] Comment on above: Performed By: #### C BC #### [facility] [address] [place] [address] Dr. Kaushik Palomares MCV (RBC) [Entitic vol] 87.1 fL Normal 81.0-99.0 [facility] Comment on above: Performed By: #### C BC #### [facility] [address] [place] [address] Dr. Kaushik Palomares MONO # 0.2 103/ul Critically low 0.3-0.8 [facility] Comment on above: Performed By: #### C BC #### [facility] [address] [address] [address] Kaushik Palomares Monocytes/100 WBC (Bld) 3.6 % Normal 1.7-12.0 [facility] Comment on above: Performed By: #### C BC #### [facility] [address] [place] [address] Dr. Kaushik Palomares NEUT # 3.7 103/ul Normal 1.4-6.5 [facility] Comment on above: Performed By: #### C BC #### [facility] [address] [place] [address] Dr. Kaushik Palomares Neutrophils/100 WBC (Bld) 56.8 % Normal 43.0-75.0 [facility] Comment on above: Performed By: #### C BC #### [facility] [address] [place] [address] Dr. Kaushik Palomares Platelet mean volume (Bld) [Entitic vol] 9.8 fL Normal 9.5-13.5 [facility] Comment on above: Performed By: #### C BC #### [facility] [address] [place] [address] Dr. Kaushik Palomares PLT 234 103/ul Normal 150-450 [facility] Comment on above: Performed By: #### C BC #### [facility] [address] [place] [address] Dr. Kaushik Palomares RBC 3.79 106/ul Critically low 4.20-5.40 [facility] Comment on above: Performed By: #### C BC #### [facility] [address] [place] [address] Dr. Kaushik Palomares WBC 6.5 103/ul Normal 4.0-11.0 [facility] Comment on above: Performed By: #### C BC #### [facility] [address] [address] [address] Kaushik Palomares FREE T4on 12-31-2022 Free T4 [Mass/Vol] 0.79 ng/dL Normal 0.76-1.46 [facility] Comment on above: Performed By: #### F T4 #### [facility] [address] [place] [address] Dr. Kaushik Palomares GLYCOHEMOGLOBIN A1Con 2022 ADA RECOMMENDATION SEE BELOW Normal [facility] Comment on above: Result Comment: ADA RECOMMENDED LIMIT 4.0 - 6.0 ADA THERAPEUTIC TARGET < 7.0 ACTION SUGGESTED > 7.0 Performed By: #### A 1C #### [facility] [address] [place] [address] Dr. Kaushik Palomares Glucose [Mass/Vol] 111 mg/dL Normal [facility] Comment on above: Performed By: #### A 1C #### [facility] [address] [place] [address] Dr. Kaushik Palomares HbA1c (Bld) [Mass fraction] 5.5 % Normal 4.5-6.2 [facility] Comment on above: Performed By: #### A 1C #### [facility] [address] [place] [address] Dr. Kaushik Palomares TSHon 12-31-2022 TSH 1.114 uIU/mL Normal 0.358-3.740 [facility] Comment on above: Performed By: #### C BC #### [facility] [address] [place] [address] Dr. Kaushik Palomares US PELVIS AND TRANSVAGon [...] SUGEY MACDONALD Date: 2022-11-26 15:58 Normal [facility] XR SACRUM_COCCYXon 3 XR SACRUM_COCCYX EXAMINATION: [...] SUGEY MACDONALD Date: 2022-11-08 10:01 Normal [facility] PAP ACOG PANEL 2: 30 to 65on 11-05-2022 . . Normal [facility] Comment on above: Result Comment: Perf ormed at: [facility] Performed By: #### C BC #### [facility] [address] [address] [address] Kaushik Palomares Age Gdln ACOG Testing 30-65 Normal [facility] Comment on above: Performed By: #### C BC #### [facility] [address] [address] [address] Kaushik Palomares DIAGNOSIS: Comment Normal [facility] Comment on above: Result Comment: NEGA TIVE FOR INTRAEPITHELIAL LESION OR MALIGNANCY. Performed at: [facility] Performed By: #### C BC #### [facility] [address] [place] [address] Dr. Kaushik Palomares HPV Aptima Negative Normal Negative [facility] Comment on above: Result Comment: This nucleic acid amplification test detects fourteen high-risk HPV types (16,18,31,33,35,39,45,51,52,56,58,59,66,68) without differentiation. Performed at: =G Performed By: #### C BC #### [facility] [address] [place] [address] Dr. Kaushik Palomares HPV Genotype Reflex Comment Normal [facility] Comment on above: Result Comment: Crit eria not met, HPV Genotype not performed. Performed at: [facility] Performed By: #### C BC #### [facility] [address] [place] [address] Dr. Kaushik Palomares Methodology: Comment Normal [facility] Comment on above: Result Comment: This liquid based ThinPrep(R) pap test was screened with the use of an image guided system. Performed at: [facility] Performed By: #### C BC #### [facility] [address] [place] [address] Dr. Kaushik Palomares Note: Comment Normal [facility] Comment on above: Result Comment: [...] WB Performed By: #### C BC #### [facility] [address] [place] [address] Dr. Kaushik Palomares Performed by: Comment Normal [facility] Comment on above: Result Comment: Robi Graham, Provider Contracting Consultant (ASCP) Performed at: WB Performed By: #### C BC #### [facility] [address] [place] [address] Dr. Kaushik Palomares Specimen adequacy: Comment Normal [facility] Comment on above: Result Comment: Sati sfactory for evaluation. Endocervical and/or squamous metaplastic cells (endocervical component) are present. Performed at: [facility] Performed By: #### C BC #### [facility] [address] [place] [address] Dr. Kaushik Palomares COVID/FLU RT-PCRon 2 SARS-CoV-2 (COVID-19) RNA SURI+probe Ql (Unsp spec) Negative [employer] Other COVID/FLU RT-PCR Negative [place] [facility] Other HCG-BETA SUBUNIT QUANTon hCG,Beta Subunit,Qnt,Serum <1 Normal [facility] Comment on above: Result Comment: Fema le (Non-) 0 - 5 (Postmenopausal) 0 - 8 . Female () Weeks of Gestation 3 6 - 71 4 10 - 750 5 553 - 3439 6 483 - 20416 7 3581 -075574 8 89580 -302790 9 56405 -378851 10 26250 -451036 12 25596 -761012 14 40146 - 07598 15 43181 - 59749 16 8440 - 04330 17 5766 - 13651 18 3069 - 00689 Rg ECLIA methodology Performed By: #### H CGSUB #### [facility] [address] [place] [address] Dr. Kaushik Palomares T4 LABCORPon 01-22-2022 T4 [Mass/Vol] 7.8 ug/dL Normal 4.5-12.0 [facility] Comment on above: Performed By: #### T 4LC #### [facility] [address] [place] [address] Dr. Kaushik Palomares CBC AUTO DIFFon 01-21-2022 BASO # 0.1 103/ul Normal 0.0-0.1 [facility] Comment on above: Performed By: #### C BC #### [facility] [address] [place] [address] Dr. Kaushik Palomares Basophils/100 WBC (Bld) 0.6 % Normal 0.2-2.0 [facility] Comment on above: Performed By: #### C BC #### [facility] [address] [place] [address] Dr. Kaushik Palomares EO # 0.1 103/ul Normal 0.0-0.7 [facility] Comment on above: Performed By: #### C BC #### [facility] [address] [place] [address] Dr. Kaushik Palomares Eosinophils/100 WBC (Bld) 1.2 % Normal 0.9-7.0 [facility] Comment on above: Performed By: #### C BC #### [facility] [address] [place] [address] Dr. Kaushik Palomares Erythrocyte distribution width (RBC) [Ratio] 13.3 % Normal 11.0-15.0 [facility] Comment on above: Performed By: #### C BC #### [facility] [address] [place] [address] Dr. Kaushik Palomares Hematocrit (Bld) [Volume fraction] 40.0 % Normal 36.0-48.0 [facility] Comment on above: Performed By: #### C BC #### [facility] [address] [place] [address] Dr. Kaushik Palomares Hemoglobin (Bld) [Mass/Vol] 12.7 g/dL Normal 12.0-16.0 [facility] Comment on above: Performed By: #### C BC #### [facility] [facility] [address] [place] [address] Dr. Kaushik Palomares IG # 0.02 10e3/ul Normal 0.00-0.03 [facility] Comment on above: Performed By: #### C BC #### [facility] [address] [place] [address] Dr. Kaushik Palomares IG % 0.2 % Normal 0.0-0.5 [facility] Comment on above: Performed By: #### C BC #### [facility] [address] [place] [address] Dr. Kaushik Palomares LYMPH # 3.0 103/ul Normal 1.2-3.8 [facility] Comment on above: Performed By: #### C BC #### [facility] [address] [place] [address] Dr. Kaushik Palomares Lymphocytes/100 WBC (Bld) 32.9 % Normal 20.5-60.0 [facility] Comment on above: Performed By: #### C BC #### [facility] [address] [place] [address] Dr. Kaushik Palomares MANUAL DIFF REQ NO Normal [facility] Comment on above: Performed By: #### C BC #### [facility] [address] [place] [address] Dr. Kaushik Palomares MCH (RBC) [Entitic mass] 28.5 pg Normal 26.7-34.0 [facility] Comment on above: Performed By: #### C BC #### [facility] [address] [place] [address] Dr. Kaushik Palomares MCHC (RBC) [Mass/Vol] 31.8 g/dL Normal 29.9-35.2 [facility] Comment on above: Performed By: #### C BC #### [facility] [address] [place] [address] Dr. Kaushik Palomares MCV (RBC) [Entitic vol] 89.7 fL Normal 81.0-99.0 [facility] Comment on above: Performed By: #### C BC #### [facility] [address] [place] [address] Dr. Kaushik Palomares MONO # 0.5 103/ul Normal 0.3-0.8 [facility] Comment on above: Performed By: #### C BC #### [facility] [address] [place] [address] Dr. Kaushik Palomares Monocytes/100 WBC (Bld) 5.1 % Normal 1.7-12.0 [facility] Comment on above: Performed By: #### C BC #### [facility] [address] [place] [address] Dr. Kaushik Palomares NEUT # 5.4 103/ul Normal 1.4-6.5 [facility] Comment on above: Performed By: #### C BC #### [facility] [address] [place] [address] Dr. Kaushik Palomares Neutrophils/100 WBC (Bld) 60.0 % Normal 43.0-75.0 [facility] Comment on above: Performed By: #### C BC #### [facility] [address] [place] [address] Dr. Kaushik Palomares Platelet mean volume (Bld) [Entitic vol] 9.3 fL Critically low 9.5-13.5 [facility] Comment on above: Performed By: #### C BC #### [facility] [address] [place] [address] Dr. Kaushik Palomares PLT 221 103/ul Normal 150-450 [facility] Comment on above: Performed By: #### C BC #### [facility] [address] [place] [address] Dr. Kaushik Palomares RBC 4.46 106/ul Normal 4.20-5.40 [facility] Comment on above: Performed By: #### C BC #### [facility] [address] [place] [address] Dr. Kaushik Palomares WBC 9.0 103/ul Normal 4.0-11.0 [facility] Comment on above: Performed By: #### C BC #### [facility] [address] [place] [address] Dr. Kaushik Palomares GLYCOHEMOGLOBIN A1Con 2021 ADA RECOMMENDATION SEE BELOW Normal [facility] Comment on above: Result Comment: ADA RECOMMENDED LIMIT 4.0 - 6.0 ADA THERAPEUTIC TARGET < 7.0 ACTION SUGGESTED > 7.0 Performed By: #### C BC #### [facility] [address] [place] [address] Dr. Kaushik Palomares Glucose [Mass/Vol] 94 mg/dL Normal [facility] Comment on above: Performed By: #### C BC #### [facility] [address] [place] [address] Dr. Kaushik Palomares HbA1c (Bld) [Mass fraction] 4.9 % Normal 4.5-6.2 [facility] Comment on above: Performed By: #### C BC #### [facility] [address] [place] [address] Dr. Kaushik Palomares LIPID PROFILEon 01-21-2022 CHOL-HDL RATIO NORM SEE BELOW Normal [facility] Comment on above: Result Comment: 3.3 - 4.4 LOW RISK 4.4 - 7.1 AVERAGE RISK 7.1 - 11.0 MODERATE RISK >11.0 HIGH RISK Performed By: #### L IPID, CMP, TSH #### [facility] [address] [address] [address] Kaushik Palomares Cholesterol [Mass/Vol] 168 mg/dL Normal <=200 [facility] Comment on above: Performed By: #### L IPID, CMP, TSH #### [facility] [address] [address] [address] Kaushik Palomares Cholesterol in HDL [Mass/Vol] 41 mg/dL Normal 40-60 [facility] Comment on above: Performed By: #### L IPID, CMP, TSH #### [facility] [address] [address] [address] Kaushik Palomares Cholesterol in LDL [Mass/Vol] 90.2 mg/dL Normal [facility] Comment on above: Performed By: #### L IPID, CMP, TSH #### [facility] [address] [address] [address] Kaushik Palomares Cholesterol.total/Choles terol in HDL [Mass ratio] 4.1 {ratio} Normal [facility] Comment on above: Performed By: #### L IPID, CMP, TSH #### [facility] [address] [address] [address] Kaushik Palomares HDL NORMAL > or = 60 mg/dl - LOW CARDIOVASCULAR RISK <40 mg/dl - HIGH CARDIOVASCULAR RISK Normal [facility] Comment on above: Performed By: #### L IPID, CMP, TSH #### [facility] [address] [address] [address] Kaushik Palomares LDL CALC NORMAL SEE BELOW Normal [facility] Comment on above: Result Comment: <100 mg/dl OPTIMAL 100 - 129 mg/dl NEAR OR ABOVE OPTIMAL 130 - 159 mg/dl BORDERLINE HIGH 160 - 189 mg/dl HIGH >190 mg/dl VERY HIGH Performed By: #### L IPID, CMP, TSH #### [facility] [address] [address] [address] Kaushik Palomares Triglyceride [Mass/Vol] 184 mg/dL Critically high <=150 [facility] Comment on above: Performed By: #### L IPID, CMP, TSH #### [facility] [address] [address] [address] Kaushik Palomares VLDL CALC 36.8 mg/dL Normal [facility] Comment on above: Performed By: #### L IPID, CMP, TSH #### [facility] [address] [address] [address] Kaushik Palomares MICROALBUMIN, RAND URon mALB 2.0 mg/L Normal <=30.0 [facility] Comment on above: Performed By: #### C BC #### [facility] [address] [place] [address] Dr. Kaushik Palomares PROF 14(COMP METB)on 022 Albumin [Mass/Vol] 3.7 g/dL Normal 3.4-5.0 [facility] Comment on above: Performed By: #### L IPID, CMP, TSH #### [facility] [address] [address] [address] Kaushik Palomares Albumin/Globulin [Mass ratio] 0.9 {ratio} Normal [facility] Comment on above: Performed By: #### L IPID, CMP, TSH #### [facility] [address] [address] [address] Kaushik Palomares ALP [Catalytic activity/Vol] 53 U/L Normal 46-116 [facility] Comment on above: Performed By: #### L IPID, CMP, TSH #### [facility] [address] [address] [address] Kaushik Palomares ALT [Catalytic activity/Vol] 44 U/L Normal 14-59 [facility] Comment on above: Performed By: #### L IPID, CMP, TSH #### [facility] [address] [address] [address] Kaushik Palomares Anion gap [Moles/Vol] 6.8 mmol/L Normal [facility] Comment on above: Performed By: #### L IPID, CMP, TSH #### [facility] [address] [address] [address] Kaushik Palomares AST [Catalytic activity/Vol] 22 U/L Normal 15-37 [facility] Comment on above: Performed By: #### L IPID, CMP, TSH #### [facility] [address] [address] [address] Kaushik Palomares Bilirubin [Mass/Vol] 0.3 mg/dL Normal 0.2-1.0 [facility] Comment on above: Performed By: #### L IPID, CMP, TSH #### [facility] [address] [place] [address] Dr. Kaushik Palomares Calcium [Mass/Vol] 9.2 mg/dL Normal 8.5-10.1 [facility] Comment on above: Performed By: #### L IPID, CMP, TSH #### [facility] [address] [place] [address] Dr. Kaushik Palomares Chloride [Moles/Vol] 102 mmol/L Normal 98-107 [facility] Comment on above: Performed By: #### L IPID, CMP, TSH #### [facility] [address] [place] [address] Dr. Kaushik Palomares CO2 [Moles/Vol] 31.4 mmol/L Normal 21.0-32.0 [facility] Comment on above: Performed By: #### L IPID, CMP, TSH #### [facility] [address] [place] [address] Dr. Kaushik Palomares Creatinine [Mass/Vol] 0.71 mg/dL Normal 0.55-1.02 [facility] Comment on above: Performed By: #### L IPID, CMP, TSH #### [facility] [address] [place] [address] Dr. Kaushik Palomares EGFR-AF ANGUILLAN >60 Normal >=60 [facility] Comment on above: Performed By: #### L IPID, CMP, TSH #### [facility] [address] [place] [address] Dr. Kaushik Palomares EGFR-NON AF ANGUILLAN >60 Normal >=60 [facility] Comment on above: Performed By: #### L IPID, CMP, TSH #### [facility] [address] [address] [address] Kaushik Palomares Globulin (S) [Mass/Vol] 4.2 g/dL Normal [facility] Comment on above: Performed By: #### L IPID, CMP, TSH #### [facility] [address] [address] [address] Kaushik Palomares Glucose [Mass/Vol] 93 mg/dL Normal 74-106 [facility] Comment on above: Performed By: #### L IPID, CMP, TSH #### [facility] [address] [place] [address] Dr. Kaushik Palomares Potassium [Moles/Vol] 4.2 mmol/L Normal 3.5-5.1 [facility] Comment on above: Performed By: #### L IPID, CMP, TSH #### [facility] [address] [place] [address] Dr. Kaushik Palomares Protein [Mass/Vol] 7.9 g/dL Normal 6.4-8.2 [facility] Comment on above: Performed By: #### L IPID, CMP, TSH #### [facility] [address] [place] [address] Dr. Kaushik Palomares Sodium [Moles/Vol] 136 mmol/L Normal 136-145 [facility] Comment on above: Performed By: #### L IPID, CMP, TSH #### [facility] [address] [place] [address] Dr. Kaushik Palomares Urea nitrogen [Mass/Vol] 11.0 mg/dL Normal 7.0-18.0 [facility] Comment on above: Performed By: #### L IPID, CMP, TSH #### [facility] [address] [place] [address] Dr. Kaushik Palomares Urea nitrogen/Creatinine [Mass ratio] 15.5 mg/mg Normal [facility] Comment on above: Performed By: #### L IPID, CMP, TSH #### [facility] [address], [place] [address] Dr. Kaushik Palomares TSHon 01-21-2022 TSH 1.298 uIU/mL Normal 0.358-3.740 [facility] Comment on above: Performed By: #### C BC #### [facility] [address] [address] [address] Kaushik Palomares TSH RANGE SEE BELOW Normal [facility] Comment on above: Result Comment: <0.3 4 UIU/ml HYPERTHYROID 0.34-5.60 UIU/ml EUTHYROID >5.60 UIU/ml HYPOTHYROID Performed By: #### C BC #### [facility] [address] [address] [address] Kaushik Palomares COVID Quick Testingon 2020 Result Negative [employer] Other Quick Strepon 06-17-2021 S. pyogenes Org specific cx Ql (Throat) Negative [employer] Other Quick Strep [employer] Other Urinalysis - AUTOMATEDon Appearance (U) cloudy [employer] Other Bilirubin Ql (U) Negative [facility] [facility] Other Color (U) yellow [employer] Other Glucose Ql (U) Negative [employer] Other Hemoglobin Ql (U) large [employer] Other Ketones Ql (U) Negative [employer] Other Leukocyte esterase Test strip Ql (U) trace [employer] Other Nitrite Ql (U) Positive [employer] Other pH (U) 5.5 [pH] [employer] Other Protein Ql (U) 100 [employer] Other Specific gravity (U) [Rel density] 1.025 [employer] Other Urobilinogen (U) [Mass/Vol] 0.2 mg/dL [employer] Other Urinalysis - AUTOMATED No rt [facility] Other Urine Cultureon 05-31-2021 Urine Culture >100,000 [employer] Other Urine Culture <16 [employer] Other Urine Culture >16 [employer] Other Urine Culture <4 [employer] Other Urine Culture 8 [employer] Other Urine Culture <2 [employer] Other Urine Culture <1 [employer] Other Urine Culture >2 [employer] Other Urine Culture <0.5 [employer] Other Urine Culture >8 [employer] Other Urine Culture >4 [employer] Other Urine Culture <32 [employer] Other Urine Culture >2/38 [employer] Other Vital Signs Date Time Vital Sign Value Performing Clinician Sharlenei pako 06-23-2024 12:21-0500 Body mass index (BMI) [Ratio] 57.47 kg/m2 [employer] Work Phone: [facility] Zang 06-23-2024 12:21-0500 Body weight 151.86 kg [employer] Work Phone: [facility] Zang 06-23-2024 12:21-0500 Diastolic blood pressure 81 mm[Hg] [employer] Work Phone: [facility] Zang 06-23-2024 12:21-0500 Heart rate 104 /[facility] 06-23-2024 12:21-0500 SaO2% (BldA) [Mass fraction] 95 % Gwen Daleett DO Work Phone: [facility] 06-23-2024 12:21-0500 Systolic blood pressure 132 mm[Hg] Gwen Cox DO Work Phone: [facility] 06-21-2024 11:18-0500 Body height 162.56 cm [employer] Work Phone: [facility] 06-21-2024 11:18-0500 Body mass index (BMI) [Ratio] 57 kg/m2 [employer] Work Phone: [facility] 06-21-2024 11:18-0500 Body temperature 97.3 [degF] [employer] Marc Work Phone: [facility] 06-21-2024 11:18-0500 Body weight 150.81 kg [employer] Marc Work Phone: [facility] 06-21-2024 11:18-0500 Diastolic blood pressure 88 mm[Hg] ROSITA Marc Work Phone: [facility] 06-21-2024 11:18-0500 Heart rate 135 /min [employer] Work Phone: [facility] 06-21-2024 11:18-0500 SaO2% (BldA) [Mass fraction] 94 % [employer] Marc Work Phone: [facility] 06-21-2024 11:18-0500 Systolic blood pressure 136 mm[Hg] ROSITA Parksachetad Work Phone: [facility] 06-15-2024 09:29-0400 Body height 162.56 cm [employer] Work Phone: [facility] 06-15-2024 09:29-0400 Body mass index (BMI) [Ratio] 57.9 kg/m2 [employer] Manisha Charlyacher Work Phone: [facility] 06-15-2024 09:29-0400 Body temperature 97.5 [degF] [employer]on Barclayrbacher Work Phone: [facility] 06-15-2024 09:29-0400 Body weight 152.97 kg [employer]Bryon ColladoManisha Denyrbacher Work Phone: [facility] 06-15-2024 09:29-0400 Diastolic blood pressure 88 mm[Hg] [employer] Parksacher Work Phone: [facility] 06-15-2024 09:29-0400 Heart rate 103 /min [employer] Parksacher Work Phone: [facility] 06-15-2024 09:29-0400 Respiratory rate 18 /min [employer] Manisha Denyrbacher Work Phone: [facility] 06-15-2024 09:29-0400 SaO2% (BldA) [Mass fraction] 95 % [employer]on ColladoManisha Denyrbacher Work Phone: [facility] 06-15-2024 09:29-0400 Systolic blood pressure 128 mm[Hg] [employer]on Parksacher Work Phone: [facility] 04-21-2024 14:31-0400 Body height 162.56 cm [employer]on Parksacher Work Phone: [facility] 04-21-2024 14:31-0400 Body mass index (BMI) [Ratio] 55 kg/m2 [employer] Barclayrbacher Work Phone: [facility] 04-21-2024 14:31-0400 Body weight 145.6 kg [employer]on Parksacher Work Phone: [facility] 04-21-2024 14:31-0400 Diastolic blood pressure 88 mm[Hg] [employer] Manisha Denyrbacher Work Phone: [facility] 04-21-2024 14:31-0400 Heart rate 111 /min [employer] Manisha Denyrbacher Work Phone: [facility] 04-21-2024 14:31-0400 SaO2% (BldA) [Mass fraction] 97 % [employer] Manisha Denyrbacher Work Phone: [facility] 04-21-2024 14:31-0400 Systolic blood pressure 136 mm[Hg] [employer]Bryon ColladoManisha Denyrbacher Work Phone: [facility] 11-26-2023 08:40-0400 Body height 162.56 cm [employer]on Barclayrbacher Work Phone: [facility] 11-26-2023 08:40-0400 Body mass index (BMI) [Ratio] 52.9 kg/m2 [employer] Manisha Denyrbacher Work Phone: [facility] 11-26-2023 08:40-0400 Body weight 139.79 kg [employer] Manisha Denyrbacher Work Phone: [facility] 11-26-2023 08:40-0400 Diastolic blood pressure 79 mm[Hg] [employer]Bryon Barclayrbacher Work Phone: [facility] 11-26-2023 08:40-0400 Heart rate 97 /min [employer]on Barclayrbacher Work Phone: [facility] 11-26-2023 08:40-0400 SaO2% (BldA) [Mass fraction] 99 % [employer]on Barclayrbacher Work Phone: [facility] 11-26-2023 08:40-0400 Systolic blood pressure 131 mm[Hg] [employer]on Barclayrbacher Work Phone: [facility] 11-03-2023 14:06-0400 Body height 162.56 cm [employer] Manisha Denyrbacher Work Phone: [facility] 11-03-2023 14:06-0400 Body mass index (BMI) [Ratio] 53.1 kg/m2 [employer]on ColladoManisha Denyrbacher Work Phone: [facility] 11-03-2023 14:06-0400 Body weight 140.61 kg [employer] Manisha Denyrbacher Work Phone: [facility] 11-03-2023 14:06-0400 Diastolic blood pressure 78 mm[Hg] [employer]Bryon ColladoManisha Denyrbacher Work Phone: [facility] 11-03-2023 14:06-0400 Heart rate 105 /min [employer] Parksacher Work Phone: [facility] 11-03-2023 14:06-0400 SaO2% (BldA) [Mass fraction] 98 % [employer] Manisha Denyrbacher Work Phone: [facility] 11-03-2023 14:06-0400 Systolic blood pressure 118 mm[Hg] [employer]Bryon ColladoManisha Denyrbacher Work Phone: [facility] 10-08-2023 10:50-0500 Body height 162.56 cm [employer]on Parksacher Work Phone: [facility] 10-08-2023 10:50-0500 Body weight 139.25 kg [employer] T[employer]Bryon Barclayrbacher Work Phone: [facility] 10-01-2023 09:20-0500 Body height 162.56 cm [employer]Bryon Barclayrbacher Work Phone: [facility] 10-01-2023 09:20-0500 Body mass index (BMI) [Ratio] 53.6 kg/m2 [employer]on Barclayrbacher Work Phone: [facility] 10-01-2023 09:20-0500 Body weight 141.69 kg [employer] Manisha Denyrbacher Work Phone: [facility] 10-01-2023 09:20-0500 Diastolic blood pressure 75 mm[Hg] [employer] Manisha Denyrbacher Work Phone: [facility] 10-01-2023 09:20-0500 Heart rate 85 /min [employer] T[employer]ERBryon ThaoManisha Denyrbacher Work Phone: [facility] 10-01-2023 09:20-0500 Respiratory rate 18 /min [employer] Manisha Denyrbacher Work Phone: [facility] 10-01-2023 09:20-0500 SaO2% (BldA) [Mass fraction] 99 % [employer] T[employer]Bryon ColladoManisha Denyrbacher Work Phone: [facility] 10-01-2023 09:20-0500 Systolic blood pressure 123 mm[Hg] ROSITA Manisha Denyrbacher Work Phone: [facility] 09-03-2023 08:00-0500 Body height 162.56 cm [employer] T[employer]Bryon ColladoManisha Denyrbacher Work Phone: [facility] 09-03-2023 08:00-0500 Body weight 138.79 kg [employer] T[employer]Bryon ColladoManisha Denyrbacher Work Phone: [facility] 09-03-2023 08:00-0500 Diastolic blood pressure 78 mm[Hg] [employer] T[employer]Bryon ColladoManisha Denyrbacher Work Phone: [facility] 09-03-2023 08:00-0500 Systolic blood pressure 118 mm[Hg] ROSITA Colladofer Denyrbacher Work Phone: [facility] 08-19-2023 09:45-0500 Body height 162.56 cm Nely Cruz Other [facility] 08-13-2023 14:00-0500 Body height 162.56 cm Manisha Marc Other [facility] 08-13-2023 14:00-0500 Body mass index (BMI) [Ratio] 52.35 kg/m2 Manisha Tari Other [employer] Other 08-13-2023 14:00-0500 Body weight 138.35 kg Manisha Marc Other [employer] Other 08-13-2023 14:00-0500 Body weight 138.34 kg [employer] Marc Work Phone: [facility] 08-13-2023 14:00-0500 Diastolic blood pressure 80 mm[Hg] Manisha Marc Other [facility] 08-13-2023 14:00-0500 SaO2% (BldA) [Mass fraction] 98 % Manisha Tari Other [employer] Other 08-13-2023 14:00-0500 Systolic blood pressure 114 mm[Hg] Manisha Marc Other [facility] 07-15-2023 07:45-0500 Body height 162.56 cm Celio SnoopWall Other [facility] 07-15-2023 07:45-0500 Body mass index (BMI) [Ratio] 52.98 kg/m2 Celio [employer] Other [employer] Other 07-15-2023 07:45-0500 Body weight 140.03 kg Celio [employer] Other [employer] Other 07-15-2023 07:45-0500 Body weight 140.02 kg ROSITA Marc Work Phone: [facility] 07-15-2023 07:45-0500 Diastolic blood pressure 66 mm[Hg] Celio Mullins Other [facility] 07-15-2023 07:45-0500 Respiratory rate 18 /min Celio Mullins Other [employer] [facility] [employer] Other 07-15-2023 07:45-0500 SaO2% (BldA) [Mass fraction] 98 % Celio Mullins Other [facility] [employer] Other 07-15-2023 07:45-0500 Systolic blood pressure 112 mm[Hg] Celio Mullins Other [facility] 07-07-2023 11:15-0500 Body height 162.56 cm Michelle Haynesmond Other [facility] 07-07-2023 11:15-0500 Body mass index (BMI) [Ratio] 52.69 kg/m2 Michelle Ernandez Other [employer] Other 07-07-2023 11:15-0500 Body temperature 98 [degF] Michelle Haynesmond Other [employer] Other 07-07-2023 11:15-0500 Body weight 139.26 kg Michelle Oma Other [employer] Other 07-07-2023 11:15-0500 Body weight 139.25 kg ROSITA Marc Work Phone: [facility] 07-07-2023 11:15-0500 Respiratory rate 20 /min Michelle Haynesmond Other [employer] Other 07-07-2023 11:15-0500 SaO2% (BldA) [Mass fraction] 98 % Michelle Ernandez Other [employer] Other 06-29-2023 10:20-0500 Body height 162.56 cm Michelle Ernandez Other [employer] Other 06-29-2023 10:20-0500 Body mass index (BMI) [Ratio] 53.03 kg/m2 Michelle Haynesmond Other [employer] Other 06-29-2023 10:20-0500 Body temperature 99.7 [degF] Michelle Ernandez Other [employer] Other 06-29-2023 10:20-0500 Body weight 140.16 kg Michelle Ernandez Other [employer] Other 06-29-2023 10:20-0500 Respiratory rate 19 /min Michelle Ernandez Other [employer] Other 06-29-2023 10:20-0500 SaO2% (BldA) [Mass fraction] 98 % Michelle Ernandez Other [employer] Other 06-11-2023 15:30-0400 Body height 162.56 cm Manisha Marc Other [employer] Other 06-11-2023 15:30-0400 Body mass index (BMI) [Ratio] 53.79 kg/m2 Manisha Marc Other [employer] Other 06-11-2023 15:30-0400 Body weight 142.16 kg Manisha Marc Other [employer] Other 06-11-2023 15:30-0400 Diastolic blood pressure 62 mm[Hg] Manisha Keanetad Other [employer] Other 06-11-2023 15:30-0400 SaO2% (BldA) [Mass fraction] 99 % Manisha Marc Other [employer] Other 06-11-2023 15:30-0400 Systolic blood pressure 126 mm[Hg] Manisha Marc Other [employer] Other 05-06-2023 13:40-0400 Body height 162.56 cm Casandra Hassan Other [employer] Other 05-06-2023 13:40-0400 Body mass index (BMI) [Ratio] 53.65 kg/m2 Casandra Hassan Other [employer] Other 05-06-2023 13:40-0400 Body temperature 98.4 [degF] Casandra Hassan Other [employer] Other 05-06-2023 13:40-0400 Body weight 141.8 kg Casandra Hassan Other [employer] Other 05-06-2023 13:40-0400 Diastolic blood pressure 81 mm[Hg] Casandra Hassan Other [employer] Other 05-06-2023 13:40-0400 Respiratory rate 18 /min Casandra Hassan Other [employer] Other 05-06-2023 13:40-0400 SaO2% (BldA) [Mass fraction] 95 % Casandra Hassan Other [employer] Other 05-06-2023 13:40-0400 Systolic blood pressure 134 mm[Hg] Casandra Hassan Other [employer] Other 04-30-2023 08:30-0400 Body height 162.56 cm Manisha Marc Other [employer] Other 04-30-2023 08:30-0400 Body mass index (BMI) [Ratio] 53.86 kg/m2 Manisha Marc Other [employer] Other 04-30-2023 08:30-0400 Body weight 142.34 kg Manisha Marc Other [employer] Other 04-30-2023 08:30-0400 Diastolic blood pressure 82 mm[Hg] Manisha Marc Other [employer] Other 04-30-2023 08:30-0400 SaO2% (BldA) [Mass fraction] 100 % Manisha Marc Other [employer] Other 04-30-2023 08:30-0400 Systolic blood pressure 120 mm[Hg] Manisha Marc Other [employer] Other 04-29-2023 07:00-0400 Body height 162.56 cm Nely Cruz Other [employer] Other 04-29-2023 07:00-0400 Body mass index (BMI) [Ratio] 54.41 kg/m2 Nely Fitt Other [employer] Other 04-29-2023 07:00-0400 Body weight 143.79 kg Nely Cruz Other [employer] Other 03-25-2023 13:45-0400 Body height 162.56 cm Celio Mullins Other [employer] Other 03-25-2023 13:45-0400 Body mass index (BMI) [Ratio] 55.45 kg/m2 Celio Mullins Other [employer] Other 03-25-2023 13:45-0400 Body weight 146.56 kg Celio Mullins Other [employer] Other 03-25-2023 13:45-0400 Diastolic blood pressure 57 mm[Hg] Celio Mullins Other [employer] Other 03-25-2023 13:45-0400 Respiratory rate 18 /min Celio Mullins Other [employer] Other 03-25-2023 13:45-0400 SaO2% (BldA) [Mass fraction] 97 % Celio Mullins Other [employer] Other 03-25-2023 13:45-0400 Systolic blood pressure 106 mm[Hg] Celio Mullins Other [employer] Other 02-11-2023 12:15-0400 Body height 163.83 cm Casandra Hassan Other [employer] Other 02-11-2023 12:15-0400 Body mass index (BMI) [Ratio] 54.88 kg/m2 Casandra Hassan Other [employer] Other 02-11-2023 12:15-0400 Body temperature 98 [degF] Casandra Tesfayeley Other [employer] Other 02-11-2023 12:15-0400 Body weight 147.33 kg Casandra Tesfayeley Other [employer] Other 02-11-2023 12:15-0400 Diastolic blood pressure 85 mm[Hg] Casandra Tesfayeley Other [employer] Other 02-11-2023 12:15-0400 Respiratory rate 18 /min Casandra Sonya Other [employer] Other 02-11-2023 12:15-0400 SaO2% (BldA) [Mass fraction] 98 % Casandra Tesfayeley Other [employer] Other 02-11-2023 12:15-0400 Systolic blood pressure 128 mm[Hg] Casandra Sonya Other [employer] Other 07-13-2022 11:15-0500 Body height 163.83 cm Michelle Haynesmond Other [employer] Other 07-13-2022 11:15-0500 Body mass index (BMI) [Ratio] 51.54 kg/m2 Michelle Haynesmond Other [employer] Other 07-13-2022 11:15-0500 Body temperature 96.6 [degF] Michelle Haynesmond Other [employer] Other 07-13-2022 11:15-0500 Body weight 138.35 kg Michelle Oma Other [employer] Other 07-13-2022 11:15-0500 Respiratory rate 18 /min Michelle Haynesmond Other [employer] Other 07-13-2022 11:15-0500 SaO2% (BldA) [Mass fraction] 96 % Michelle Oma Other [employer] Other 07-06-2021 13:00-0500 Body height 163.83 cm Michelle Oma Other [employer] Other 07-06-2021 13:00-0500 Body mass index (BMI) [Ratio] 49 kg/m2 Michelle Oma Other [employer] Other 07-06-2021 13:00-0500 Body temperature 97.5 [degF] Michelle Oma Other [employer] Other 07-06-2021 13:00-0500 Body weight 131.54 kg Michelle Oma Other [employer] Other 07-06-2021 13:00-0500 SaO2% (BldA) [Mass fraction] 96 % Michelle Oma Other [employer] Other 06-17-2021 11:00-0400 Body height 163.83 cm Michelle Oma Other [employer] Other 06-17-2021 11:00-0400 Body mass index (BMI) [Ratio] 49.68 kg/m2 Michelle Oma Other [employer] Other 06-17-2021 11:00-0400 Body temperature 98.3 [degF] Michelle Oma Other [employer] Other 06-17-2021 11:00-0400 Body weight 133.36 kg Michelle Haynesmond Other [employer] Other 06-17-2021 11:00-0400 Respiratory rate 18 /min Michelle Oma Other [employer] Other 06-17-2021 11:00-0400 SaO2% (BldA) [Mass fraction] 96 % Michelle Oma Other [employer] Other 05-31-2021 13:50-0400 Body height 163.83 cm Michelle Oma Other [employer] Other 05-31-2021 13:50-0400 Body mass index (BMI) [Ratio] 50.36 kg/m2 Michelle Oma Other [employer] Other 05-31-2021 13:50-0400 Body temperature 97.8 [degF] Michelle Oma Other [employer] Other 05-31-2021 13:50-0400 Body weight 135.17 kg Michelle Oma Other [employer] Other 05-31-2021 13:50-0400 Diastolic blood pressure 90 mm[Hg] Michelle Oma Other [employer] Other 05-31-2021 13:50-0400 Respiratory rate 18 /min Michelle Oma Other [employer] Other 05-31-2021 13:50-0400 SaO2% (BldA) [Mass fraction] 98 % Michelle Oma Other [employer] Other 05-31-2021 13:50-0400 Systolic blood pressure 150 mm[Hg] Michelle Ernandez Other [employer] Other Encounters Encounter Date Encounter Type Care Provider Facility Start: 06-28-2024 End: 06-28-2024 Bamboo flowsheet Mario Mcknight PhD Work Phone: [facility] Start: 06-28-2024 End: 06-28-2024 Bamboo flowsyarely Mcknight PhD Work Phone: [facility] Start: 06-28-2024 End: 06-28-2024 ambulatory MARIO MCKNIGHT Not Available Start: 06-25-2024 End: 06-25-2024 ambulatory Manisha Marc Facility:[facility] Start: 06-23-2024 ambulatory Facility:[facility] Start: 06-23-2024 End: 06-23-2024 Bamboo flowsheet [facility] Kenny [facility] Start: 06-23-2024 End: 06-23-2024 Bamboo flowsheet Christopher Kenny DO Work Phone: [facility] [employer] [address] Start: 06-23-2024 End: 06-23-2024 Office outpatient new 45 minutes [facility] Comment on above: Cognitive impairment (Primary Dx); Anxiety Start: 06-23-2024 End: 06-23-2024 ambulatory GWEN DALEETT Not Available Start: 06-21-2024 End: 06-21-2024 ambulatory ROSITA Marc Work Phone: [facility] Work Phone: Start: 06-21-2024 End: 06-21-2024 Patient encounter procedure ROSITA Marc Work Phone: [facility] Physician [facility] Work Phone: Start: 06-18-2024 Non-patient / Non-visit [employer] DISTRIBUTOR TENDERBryon Marc Work Phone: [facility] Physician [facility] Work Phone: Start: 06-15-2024 End: 06-15-2024 Departed Referred ROSITA Marc Work Phone: [facility] [place] Work Phone: Start: 06-15-2024 End: 06-15-2024 ambulatory ROSITA Marc Work Phone: [facility] Work Phone: Start: 06-15-2024 End: 06-15-2024 Patient encounter procedure ROSITA Marc Work Phone: [facility] Work Phone: Start: 06-07-2024 Non-patient / Non-visit ROSITA Marc Work Phone: [facility] Physician [facility] [employer] Work Phone: Start: 05-13-2024 ambulatory Edward Richey acility:[facility] Start: 05-13-2024 Registered Recurring ROSITA Marc Work Phone: [facility] Start: 04-21-2024 End: 04-21-2024 ambulatory ROSITA Marc Work Phone: [facility] Work Phone: Start: 04-21-2024 End: 04-21-2024 Patient encounter procedure ROSITA Marc Work Phone: [facility] Physician [facility] Work Phone: Start: 04-15-2024 Non-patient / Non-visit ASPH[employer] DISTRIBUTOR TENDERBryon Dyer Charlygareth Work Phone: [facility] Work Phone: Start: 04-12-2024 Non-patient / Non-visit ASPHALT DISTRIBUTOR TENDERBryon Dyer Charlymarycarmenr Work Phone: [facility] Physician [facility] Work Phone: Start: 04-03-2024 Registered Recurring [employer] DISTRIBUTOR TENDER Layla reyna Tari Work Phone: [facility] [employer] Start: 03-16-2024 End: 03-16-2024 ambulatory MELA ANDERSON Not Available Start: 01-19-2024 End: 01-19-2024 ambulatory Bud Combs MD Facility:[facility] Start: 01-01-2024 Registered Recurring ASPHALT DISTRIBUTOR TENDERBryon reyna Tari Work Phone: [facility] Start: 11-26-2023 End: 11-26-2023 ambulatory ASPHALT DISTRIBUTOR TENDERBryon Dyer Tari Work Phone: [facility] Work Phone: Start: 11-26-2023 End: 11-26-2023 Patient encounter procedure ROSITA Dyer Charlymarycarmenr Work Phone: [facility] Work Phone: Start: 11-03-2023 End: 11-03-2023 ambulatory ASPHALT DISTRIBUTOR TENDERBryon Dyer Charlymarycarmenr Work Phone: [facility] Work Phone: Start: 11-03-2023 End: 11-03-2023 Patient encounter procedure ASPHALT DISTRIBUTOR TENDERBryon Dyer Denyeliudacher Work Phone: [facility] Physician [facility] Work Phone: Start: 11-03-2023 End: 11-03-2023 ambulatory MARKO OSCAR Not Available Start: 10-30-2023 Non-patient / Non-visit ASPHALT DISTRIBUTOR TENDERBryon Marc Work Phone: [facility] Physician [facility] Work Phone: Start: 10-08-2023 End: 10-08-2023 Patient encounter procedure ASPHALT DISTRIBUTOR TENDERBryon Marc Work Phone: [facility] [place] Work Phone: Start: 10-08-2023 End: 10-08-2023 ambulatory ASPHALT DISTRIBUTOR TENDERBryon Marc Work Phone: [facility] Work Phone: Start: 10-06-2023 Non-patient / Non-visit ROSITA Marc Work Phone: [facility] Physician [facility] Work Phone: Start: 10-06-2023 End: 10-06-2023 ambulatory Bud Combs MD Facility: [place] Start: 10-01-2023 End: 10-01-2023 Patient encounter procedure ASPHALT DISTRIBUTOR TENDERBryon Marc Work Phone: [facility] Work Phone: Start: 10-01-2023 End: 10-01-2023 ambulatory ROSITA Marc Work Phone: [facility] Work Phone: Start: 09-10-2023 Registered Recurring ROSITA Marc Work Phone: [facility] Start: 09-08-2023 End: 09-08-2023 ambulatory Bud Combs MD Facility: [place] Start: 09-03-2023 End: 09-03-2023 Patient encounter procedure ROSITA Marc Work Phone: [facility]- Start: 08-19-2023 IBT FOR OBESITY GROU P 2-10 30M Nely Cruz [facility] Start: 08-19-2023 End: 08-19-2023 ambulatory Manisha Marc [facility] [employer] Other Start: 08-19-2023 Registered Recurring ASPHALT DISTRIBUTOR TENDER Layla castrosudheer Marc Work Phone: [facility] Work Phone: Start: 08-19-2023 End: 08-19-2023 Patient encounter procedure [employer]HALT DISTRIBUTOR TENDER Manisha Tari Work Phone: [facility] Work Phone: Start: 08-14-2023 Registered Recurring ASPHALT DISTRIBUTOR TENDER Laylabryon Marc Work Phone: [facility] [employer] Start: 08-13-2023 End: 08-13-2023 ambulatory Manisha Marc Other [facility] [employer] Other Start: 08-13-2023 Office outpatient visit 15 minutes Manisha Marc [facility] Start: 08-13-2023 End: 08-13-2023 Patient encounter procedure ROSITA Manisha Tari Work Phone: [facility] Work Phone: Start: 07-24-2023 End: 07-24-2023 ambulatory MELA ANDERSON Not Available Start: 07-21-2023 End: 07-21-2023 ambulatory Bud Combs MD Facility: [place] Start: 07-19-2023 End: 07-19-2023 ambulatory ASPHALT DISTRIBUTOR TENDERBryon Marc Work Phone: [facility] Work Phone: Start: 07-19-2023 End: 07-19-2023 Patient encounter procedure ROSITA Manisha Tari Work Phone: [facility] [facility] Start: 07-15-2023 End: 07-15-2023 ambulatory Celio Mullins Other [employer] Other Start: 07-15-2023 Follow-up encounter Celio Mullins [facility] Start: 07-15-2023 End: 07-15-2023 Patient encounter procedure ASPHALT DISTRIBUTOR TENDERBryon Marc Work Phone: [facility]ician [facility] Work Phone: Start: 07-07-2023 End: 07-07-2023 ambulatory Michelle Oma Other [employer] Other Start: 07-07-2023 Office outpatient visit 15 minutes Michelle Oma [facility] Start: 07-07-2023 End: 07-07-2023 Patient encounter procedure ASPHALT DISTRIBUTOR TENDERBryon Marc Work Phone: [facility] Work Phone: Start: 07-03-2023 Registered Recurring ASPHALT DISTRIBUTOR TENDERBryon Marc Work Phone: [facility] Start: 07-03-2023 End: 07-03-2023 Patient encounter procedure ROSITA Marc Work Phone: [facility] [place] Work Phone: Start: 07-03-2023 End: 07-03-2023 ambulatory ASPHALT DISTRIBUTOR TENDERBryon Marc Work Phone: [facility] Work Phone: Start: 07-01-2023 End: 07-01-2023 Patient encounter procedure ASPHALT DISTRIBUTOR TENDERBryon Marc Work Phone: [facility] [place] Work Phone: Start: 07-01-2023 End: 07-01-2023 ambulatory Celio Mullins Facility:[facility] Start: 06-29-2023 End: 06-29-2023 ambulatory Michelle Oma Other [employer] Other Start: 06-29-2023 Office outpatient visit 15 minutes Michelle Oma [facility] Start: 06-17-2023 Registered Recurring ROSITA Marc Work Phone: [facility] Work Phone: Start: 06-11-2023 End: 06-11-2023 ambulatory Manisha Marc Other [employer] Other Start: 06-11-2023 Office outpatient visit 25 minutes Manisha Marc [facility] Start: 05-06-2023 End: 05-06-2023 ambulatory Casandra Hassan Other [employer] Other Start: 05-06-2023 Office outpatient visit 10 minutes Casandra Hassan [facility] Start: 05-01-2023 End: 05-01-2023 ambulatory Manisha Marc Other [employer] Other Start: 05-01-2023 Telephone encounter Manisha Jacky her [facility] Start: 04-30-2023 End: 04-30-2023 ambulatory Manisha Marc Other [employer] Other Start: 04-30-2023 Encounter for genera l adult medical examination without abnormal findings Manisha Marc [facility] Start: 04-30-2023 Periodic preventive med est patient 18-39 yrs Manisha Marc [facility] Start: 04-29-2023 ([facility]NI) WMN Initial Provider Nely Cruz [facility] Start: 04-29-2023 End: 04-29-2023 ambulatory Nely Cruz Other [employer] Other Start: 03-25-2023 End: 03-25-2023 ambulatory Celio Mullins Other [employer] Other Start: 03-25-2023 Nutrition therapy Celio Mullins [facility] Start: 03-25-2023 Telephone encounter Celio Owens [facility] Start: 03-14-2023 End: 03-14-2023 ambulatory Nely Cruz Other [employer] Other Start: 03-14-2023 Telephone encounter Nely Owens [facility] Start: 02-11-2023 End: 02-11-2023 ambulatory Casandra Hassan Other [employer] Other Start: 02-11-2023 Office outpatient visit 15 minutes Casandra Hassan [facility] Start: 12-31-2022 End: 01-01-[address] MARKO OSCAR . Facility:[facility] Start: 11-26-2022 End: 11-27-[address] MARKO OSCAR . Facility:[facility] Start: 11-08-2022 End: 11-09-[address] THADDEUS ROD Facility:[facility] Start: 10-28-2022 End: 10-28-[address] MARKO OSCAR . Facility:[facility] Start: 07-13-2022 End: 07-13-2022 ambulatory Michelle Ernandez Other [employer] Other Start: 07-13-2022 Office outpatient visit 15 minutes Michelle Ernandez [facility] Start: 03-07-2022 End: 03-08-[address] THADDEUS ROD Facility:[facility] Start: 01-25-2022 Encounter for genera l adult medical examination without abnormal findings DR THADDEUS ROD [facility] Start: 01-21-2022 End: 01-22-[address] THADDEUS ROD Facility:[facility] Start: 01-21-2022 End: 01-22-2022 Encounter for general adult medical examination without abnormal findings DR THADDEUS ROD Facility:[facility] Start: 07-06-2021 End: 07-06-2021 ambulatory Michelle Ernandez Other [employer] Other Start: 07-06-2021 Office outpatient visit 15 minutes Michelle Oma [facility] Start: 06-17-2021 Office outpatient visit 15 minutes Michelle Oma [facility] Start: 05-31-2021 Office outpatient visit 25 minutes Michelle Oma [facility] Start: 08-27-2018 End: 08-27-2018 ambulatory BRENT KINNEY Facility:[facility] Procedures Date Procedure Procedure Detail Performing Clinician Start: 06-15-2024 Bacteria identified in Urine by Culture ROSITA Marc Work Phone: Start: 11-03-2023 Microscopic observat ion [Identifier] in Cervix by Cyto stain Gwen Cox DO Work Phone: Start: 10-08-2023 MRI of head ROSITA Marc Work Phone: Start: 05-31-2021 Piperacillin/tazobactam Michelle Ernandez Other Start: 08-27-2018 extraction, erupted tooth or exposed root (elevation and/or forceps removal) BRENT MENDOZACONTARAH Start: 08-27-2018 removal of impacted tooth - soft tissue BRENT MENDOZACONIS Start: 08-27-2018 Urine test visual color cmprsn meths BRENT KINNEY Plan of Treatment Date Care Activity Detail Author Start: 10-29-2027 Screening for malign ant neoplasm of cervix [facility] Start: 11-02-2026 Screening for malign ant neoplasm of cervix Pap Smear [facility] Start: 11-02-2024 End: 11-02-2024 Patient encounter procedure 11/02/2024 11:00 AM EDT Office Visit [facility] [address] [place] [address] Marko Oscar DO [address] [place] [address] [facility] Start: 08-16-2024 End: 08-16-2024 Patient encounter procedure 08/16/2024 11:20 AM EST Office Visit [facility] [address] [place] [address] Love Consuelo, NEVIN [address] [place] [address] [facility] [place] [address] [facility] Start: 06-28-2024 End: 06-28-2024 Patient encounter procedure [facility] Comment on above: Cognitive impairment Start: 06-23-2024 End: 06-23-2024 Patient encounter procedure 06/23/2024 12:30 PM EST Office Visit KIRIT [address] [place] [address] Gwen Cox DO [address] [place] [address] Ar[address] [facility] [place] [address] Comment on above: Arrived Start: 06-21-2024 Patient referral [facility] Work Phone: Start: 06-15-2024 Bacteria identified in Urine by Culture Urine Culture [facility] Start: 06-15-[address] [facility] Start: 06-15-[address] [facility] Start: 04-18-2024 Influenza vaccination Influenz a Vaccine (#1) [facility] Chlamydia trachomati s DNA [Presence] in Unspecified specimen by SURI with probe detection [facility] Comprehensive metabo lic 2000 panel - Serum or Plasma [facility] Holter monitor study [facility] MR Unspecified body region [facility] Neisseria gonorrhoea e DNA [Presence] in Unspecified specimen by SURI with probe detection [facility] Patient referral [facility] Work Phone: Trichomonas vaginali s DNA [Presence] in Unspecified specimen by SURI with probe detection [facility] Immunizations Immunization Date Immunization Notes Care Provider Fa ken 03-03-2021 Do not use COVID-19 Pfizer 2 dose Manisha Tari Other [facility] 02-10-2021 Do not use COVID-19 Pfizer 2 dose Manisha aTri Other [facility] 08-03-2018 Toradol per 15 mg Michellenawaf Sofia ond Other [employer] Other Payers Date Payer Category Payer Self-pay [id number] 2022 Self-pay [id number] 2022 Private Health Insurance 1991 Unknown [id number] 2.16.840.1.293247.3.579.2. 732 1991 Unknown [id number] 2.16.840.1.656815.3.579.2. 593 1991 Unknown [id number] 2.16.840.1.759392.3.579.2. 593 1991 Unknown [id number] 2.16.840.1.747813.3.579.2. 593 1991 Unknown [id number] 2.16.840.1.468322.3.579.2. 593 1991 Unknown [id number] 2.16.840.1.573571.3.579.2. 593 1991 Unknown [id number] 2.16.840.1.597495.3.579.2. 593 1991 Unknown [id number] 2.16.840.1.808964.3.579.2. 196 1991 Unknown [id number] 2.16.840.1.229935.3.579.2. 196 1991 Unknown [id number] 2.16.840.1.841854.3.579.2. 196 1991 Unknown [id number] 2.16.840.1.456003.3.579.2. 196 1991 Unknown [id number] 2.16.840.1.529673.3.579.2. 9 1991 Unknown [id number] 2.16.840.1.332014.3.579.2. 9 1991 Unknown [id number] 2.16.840.1.654548.3.579.2. 9 1991 Unknown [id number] 2.16.840.1.927445.3.579.2. 9 1991 Unknown [id number] 2.16.840.1.033313.3.579.2. 9 1959 Medicaid [id number] 1959 Unknown [id number] Unknown [place] [id number] Unknown [id number] 2.16.840.1.451977.3.579.2. 531 Unknown [id number] 2.16.840.1.098252.3.579.2. 531 Unknown [id number] 2.16.840.1.085135.3.579.2. 531 Unknown [id number] 2.16.840.1.854471.3.579.2. 531 Unknown [id number] 2.16.840.1.922376.3.579.2. 531 Unknown [id number] 2.16.840.1.133841.3.579.2. 531 Unknown [id number] Unknown [id number] Unknown [id number] Social History Date Type Detail Facility Unknown if ever smoked [employer] Other Start: 03-11-2023 Sex Assigned At N [employer] Other Start: 12-07-2021 End: 03-18-2023 Tobacco smoking status NHIS Never smoked tobacco (finding) [facility] Start: 1990 Sex Assigned At Female F [facility] Start: 05-31-2024 Alcoholic beverage intake Not Asked [facility] Start: 07-24-2023 History of Social function [facility] Start: 03-11-2023 Gender identity Identifies as female gender (finding) [facility] Clinical Notes 05-31-2021 to 06-23-2024 Gwen Cox, DO - 06/23/2024 12:30 PM EST Note Date & Type Note Facility 06-23-2024 History of Presen t illness Narrative Images from the original note were not included. Chief complaint: Memory impairment Subjective Ashly Mehta, 33 y.o., female Ashly is here for a neurologic consult at the request of Manisha Marc CNP for memory changes, aphasia and headaches. Patient states she has been losing time. She states she will be doing something and miss a few minutes here and there. This has been happening for a few months. She is misplacing items at home. She reports being extremely forgetful. She reports difficulty finding words. This can be with things she is very familiar with like a couch she says. She reports forgetting where she is going when she is driving often. 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 She reports vivid dreams and hallucinations. She is visual, auditory and sensory hallucinations. She feels like bugs are crawling on her often. She related this to her bipolar. She was just diagnosed with sleep apnea and states at times she sleeps all day and other times she can't sleep at all. She reports an average of 4-5 hours of broken sleep at night. Review of Systems Constitutional: Negative for appetite change, fatigue and fever. Respiratory: Negative for cough, shortness of breath and wheezing. Cardiovascular: Negative for chest pain, palpitations and leg swelling. Gastrointestinal: Negative for abdominal pain, constipation, diarrhea and nausea. Musculoskeletal: Negative for arthralgias, gait problem and myalgias. Neurological: Negative for dizziness, tremors, numbness and headaches. Memory impairment Past Medical History: Diagnosis Date Abnormal Pap smear of cervix Abnormal uterine bleeding (AUB) Abnormal weight gain Anemia Anxiety Asthma (CMS/HCC) Benign essential HTN (CMS/HCC) Bipolar 2 disorder (CMS/HCC) Coitus painful for female Depression (CMS/HCC) Dysthymia (CMS/HCC) Genital herpes in women GERD (gastroesophageal reflux disease) Hormone imbalance Hypertension (CMS/HCC) Hypertension (CMS/HCC) Infertility, female Memory changes Menorrhagia Morbid obesity with BMI of 50.0-59.9, adult (CMS/HCC) Pain of ovary PCOS (polycystic ovarian syndrome) Pre-diabetes Right ovarian cyst Seasonal affective disorder (CMS/HCC) Secondary amenorrhea Seizure disorder (CMS/HCC) Past Surgical History: Procedure Laterality Date CHOLECYSTECTOMY COLPOSCOPY DILATION AND CURETTAGE OF UTERUS 01/31/2023 GALLBLADDER SURGERY LAPAROTOMY OOPHERECTOMY WISDOM TOOTH EXTRACTION Family History Problem Relation Name Age of Onset Hypertension Mother Mental illness Mother Cancer Mother Atrial fibrillation Mother Migraines Mother Stroke Mother Mental illness Sister Asthma Sister Depression Sister Migraines Sister Social History Tobacco Use Smoking status: Never Smokeless tobacco: Not on file Substance Use Topics Alcohol use: Not on file Allergies: Amoxicillin, Cefaclor, Cephalosporins, Erythromycin base, and Erythromycin Vitals: 06/23/24 1221 BP: 132/81 Pulse: 104 SpO2: 95% Body mass index is 57.47 kg/m . weight: 334 lb 12.8 oz Neurologic exam: Mental status: Awake, alert to person, place and time. Recent and remote memory are intact. Language is fluent without aphasia. Attention and concentration are normal. Fund of knowledge is appropriate for level of education. Cranial nerves: CN II: Visual acuity is normal. Visual valle full to confrontation. CN III, IV, : pupils equal round and reactive to light. Extraocular movements intact. No ptosis present. CN V: Facial sensation is normal. CN VII: Full and symmetric facial movement. CN VIII: Hearing is normal to finger rub bilaterally: CN IX and X: Palate elevates symmetrically. CN XI: Shoulder shrug is normal bilaterally. CN XII: Tongue is midline without atrophy or fasciculation. Motor: RUE Strength deltoid, , biceps , triceps , wrist extensors , wrist flexor , finishing supervisor plastic sheets strength 5/5. LUE Strength deltoid , biceps , triceps , wrist extensors , wrist flexor , finishing supervisor plastic sheets strength 5/5. RLE Strength illopsoas, quadriceps, tibialis anterior, and gastrocnemius strength 5/5. LLE Strength illopsoas, quadriceps, tibialis anterior, and gastrocnemius strength 5/5. Normal tone x4 extremities. Bulk is normal. Bulk is normal. Sensory: Sensation is intact to light touch throughout Four extremities. Reflexes: RUE biceps reflex 2+ brachioradialis reflex 2+ . LUE biceps reflex 2+ brachioradialis reflex 2+ . RLE knee reflex 2+ . LLE knee reflex 2+ . Valiente's sign negative. Coordination: [id number] testing and rapid alternating movements are normal Gait: Normal Review and summary of old records: MRI of the brain with and without contrast on 05/27/2024: No abnormal or suspicious findings to account for the patient's symptoms B12 and thyroid stimulating hormone are normal on 04/21/2024 Assessment/Plan Diagnoses and all orders for this visit: Cognitive impairment It is my impression that the patient has cognitive impairment. She feels this subjectively and does feel that stress makes it worse. She did have an MRI of the brain which was unremarkable. B12 and thyroid stimulating hormone were also normal. I wonder if this is related to anxiety. I do not suspect a neurodegenerative process at this time. Plan: Neuropsych testing to evaluate for pathology as above and further understand disease process As the patient is quite obese consideration could also be given to obstructive sleep apnea and we can certainly schedule the patient for sleep study pending these results as if she has obstructive sleep apnea this could certainly be a reason for cognitive impairment. Pt has been fully educated on their diagnosis, lab results, treatment options, follow up plan, and return instructions documented in this encounter [facility] 08-19-2023 Evaluation note Encounter Date Diagnosis Assessment Notes Aug, Obesity, unspecified classification , unspecified obesity type, unspecified whether serious comorbidity present (ICD-10 - E66.9) Aug, BMI 50.0-59.9, adult (ICD-10 - Z68.43) Aug, Other Summary of Visit: (A) Importnace of planning to simplify meals (B) Deconstructed Meals (C) Sharing meal ideas (D) Plate method for meal planning ; grocery shortcuts [employer] Other 12-27-2023 Evaluation note* Encounter Date Diagnosis [...] You have been given relevant education handouts. [employer] Other 11-28-2023 Evaluation note* Encounter Date Diagnosis [...] voice recognition software. 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 Jun, Dietary surveillance and counseling (ICD-10 - [...] metformin 1000 mg total daily, managed by FILM PROCESSING SUPERVISOR Jun, Asthma (ICD-10 - J45.909) Jun, Migraine (ICD-10 - G43.909) Jun, Primary hypertension (ICD-10 - I10) Currently on pharmacotherapy Potential for overtreatment given lightheadedness Jun, Other An additional 9 minutes was spent counseling the patient on behavior modification including proper nutrition and physical activity. [employer] Other 11-20-2023 Evaluation note* Encounter Date Diagnosis [...] until you feel better. You may take [id number] Imodium for diarrhea as needed. Avoid dairy foods as well as greasy fried foods. Follow-up with your physician if no improvement in 2 to 3 days. May return to work on Jun, Diarrhea, unspecified type (ICD-10 - R19.7) Diarrhea: adult home care material was printed [employer] Other 11-12-2023 Evaluation note* Encounter Date Diagnosis [...] to 3-day Jun, Bronchitis (ICD-10 - J40) [employer] Other 10-25-2023 Evaluation note* Encounter Date Diagnosis Assessment Notes Treatment Notes Treatment Clinical Notes May, Degenerative lumbar disc (ICD-10 - M51.36) L4-5 Pt would like a referral to pain management regarding her chronic back pain. Her last x-ray of the lumbar spine was completed 10/2022 at [facility]--reviewed and in scanned documents. Referral placed. May, [...] disorder (ICD-10 - F31.81) Referral placed to [facility] for medication mangement. [employer] Other 09-19-2023 Evaluation note* Encounter Date Diagnosis Assessment Notes Treatment Notes Treatment Clinical Notes Apr, Exposure to head lice (ICD-10 - Z20.7) Discussed with patient exam is without any signs of current lice infection. May return to work tomorrow. Patient completed next treatment yesterday. Patient verbalized understanding. [employer] Other 09-14-2023 Evaluation note* Encounter Date Diagnosis Assessment Notes Treatment Notes Treatment Clinical Notes Apr, Primary hypertension (ICD-10 - I10) [employer] Other 09-13-2023 Evaluation note* Encounter Date Diagnosis [...] (ICD-10 - R73.01) Will obtain records from [facility] for most recent labs. Patient is [...] Low back pain, unspecified (ICD-10 - M54.50) [employer] Other 09-12-2023 Evaluation note* Encounter Date Diagnosis [...] 2) Aim for < 45 g carb/meal [employer] Other 08-08-2023 Evaluation note* Encounter Date Diagnosis [...] voice recognition software. 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 Mar, Dietary surveillance and counseling (ICD-10 - [...] as sweet tea, replace ice cream with Upper Sor[place] yogurt, use protein shake in the a.m. [...] with the patient, and documenting clinical information. [employer] Other 06-27-2023 Evaluation note* Encounter Date Diagnosis [...] 7 days, sooner if significantly worsening symptoms. [employer] Other 11-26-2022 Evaluation note* Encounter Date Diagnosis [...] 3 days. Off work today and tomorrow [employer] Other 11-19-2021 Evaluation note* Encounter Date Diagnosis [...] Patient care instructions given in writting by [facility] Care At Home document. [employer] Other 10-31-2021 Evaluation note* Encounter Date Diagnosis [...] Patient care instructions given in writting by [facility] Care At Home document. [employer] Other 10-14-2021 Evaluation note* Encounter Date Diagnosis Assessment Notes Treatment Notes Treatment Clinical Notes May, Dysuria (ICD-10 - R30.0) May, Urinary tract infection, site not specified (ICD-10 - N39.0) May, Hematuria, unspecified (ICD-10 - R31.9) [employer] Other [facility] Other Evaluation noteNo assessment information [facility] Work Phone: Evaluation note* Diagnosis Onset Date Resolution Status Dietary surveillance and counseling acute Exercise counseling acute Food insecurity acute PCOS (polycystic ovarian syndrome) acute Prediabetes acute Severe obesity (BMI >= 40) a [facility] Work Phone: Evaluation note* Diagnosis Onset Date Resolution Status Dietary surveillance and counseling acute Exercise counseling acute Food insecurity acute PCOS (polycystic ovarian syndrome) acute Prediabetes acute Severe obesity (BMI >= 40) a cute Lightheadedness acute Menorrhagia acute Palpitations acute [facility] Work Phone: Evaluation note* Diagnosis Onset Date Resolution Status Dietary surveillance and counseling acute Exercise counseling acute Food insecurity acute PCOS (polycystic ovarian syndrome) acute Prediabetes acute Severe obesity (BMI >= 40) a cute Lightheadedness acute Menorrhagia acute Palpitations acute Dietary surveillance and counseling acute Exercise counseling acute Severe obesity (BMI >= 40) a [facility] Work Phone: Evaluation note* Diagnosis Onset Date Resolution Status Lightheadedness acute Menorrhagia acute Palpitations acute Dietary surveillance and counseling acute Exercise counseling acute Severe obesity (BMI >= 40) a [facility] Work Phone: evaluation note* Diagnosis Onset Date Resolution Status Aphasia acute History of seizures acute Memory loss acute Migraine acute [facility] Work Phone: Evaluation note* Diagnosis Onset Date Resolution Status Aphasia acute Apnea acute Fatigue acute History of seizures acute Loud snoring acute Memory loss acute Migraine acute Morbid obesity acute Acute UTI acute [facility] Work Phone: Evaluation note* Diagnosis Onset Date Resolution Status Aphasia acute Apnea acute Fatigue acute History of seizures acute Loud snoring acute Memory loss acute Migraine acute Morbid obesity acute Acute UTI acute Fatty liver disease, nonalcoholic acute Frequent UTI acute UTI (urinary tract infection) acute [facility] Work Phone: Evaluation note* Diagnosis Cognitive impairment- Primary Unspecified persistent mental disorders due to conditions classified elsewhere Anxiety Anxiety state, unspecified documented in this encounter [facility] HealthcareHistory general Narrative - Reported* Type Description Date Medical History Asthma Medical History Blood transfusion Medical History Seizure Disorder Medical History migraine headache w/out Aura Medical History herpes Medical History PCOS Medical History hypertensive heart disease Medical History tachycardia Medical History pre diabetes Surgical History Colposcopy Surgical History cholecystectomy Surgical History wisdom teeth Hospitalization History Pneumonia Hospitalization History Hospitalized for blood l oss 2010 [employer] Other History general Narrative - Reported* Type Description Date [...] History Hospitalized for blood l oss 2010 [employer] Other history general Narrative - Reported* Type [...] History Hospitalized for blood l oss 2010 [employer] Other history general Narrative - Reported* Type [...] History Hospitalized for blood l oss 2010 [employer] Other history general Narrative - Reported* Type [...] History Hospitalized for blood l oss 2010 [employer] Other history general Narrative - Reported* Type [...] History Hospitalized for blood l oss 2010 [employer] Other History general Narrative - Reported* Type Description Date [...] History Hospitalized for blood l oss 2010 [employer] Other Hospital Discharge instructionsAmbulatory Orders* Referral to Gastroenterology Time Frame: 06/21/24, Location: None Selected * Referral to Urology Time Frame: 06/21/24, Location: None Selected [facility] Work Phone: Reason for referral (narrative)* Reason *FU 06/20 would sherif garnett referral to pscyiatrist -- was recently diagnosed with bipolar and would like medication management. Diagnosis 1 Bipolar 2 disorder ( F31.81) Referral Organization [facility] [email or web address] Referring Provider First Name Manisha Referring Provider Last Name Charlyachetad Referring Provider Specialty Nurse Noble orozco Referred Organization [facility] and [facility] Referred Address [address] [place] [address],[place], [place],[address] Referred Provider Specialty Psychiatry Referral Priority Routine General Notes Paola Henderson 01:25:30 PM >received today, not sure if [facility] does medication management, waiting for notes to be locked Paola Henderson 06/13/2023 10:34:39 AM >notes locked, referral faxed Clinical Notes p: [phone] f: [id number] [facility] Reason *FU 06/20 would sherif garnett referral to pain management for other options for pain control for back pain Diagnosis 1 Degenerative lumbar disc (M51.36) Referral Organization [facility] [email or web address] Referring Provider First Name Manisha Referring Provider Last Name Charlyachetad Referring Provider Specialty Nurse Noble orozco Referred Organization [facility] Referred Provider Yrn Parsons Referred Address [address] [facility],[place], [place],[address] Referred Provider Specialty Pain Medicin e Referral Priority Routine General Notes Kerrisudheer Paola 01:21:23 PM >received today, waiting for notes to be locked Paola Henderson 06/13/2023 10:25:26 AM >notes locked, referral faxed Clinical Notes f: [phone] [employer] Other [facility] for visit Narrative* Consultation (Routine) - Closed Specialty Diagnoses / Procedures Referred By Ela t Referred To Contact Neurology Diagnoses Aphasia Personal history of other specified conditions Other amnesia Procedures [place] OFFICE/OUTPATIENT NEW LOW MDM 30 MINUTES Manisha Marc, WIRE ANNEALER [address] [place] [address] [place] [address] Phone: tel: fax: Sugey Dinero MD [address] [place] [address] Phone: tel: fax: Referral ID Status Reason Start Date Expiration Date V isits Requested Visits Authorized [id number] Closed Consult and Treat 05/28/2024 11/24/2024 1 1 [facility] Summary Purpose Family History No Family History [...] Palpitations Chief Complaint 6 Month Follow Up BH g40.909 heart palpitations Reason for Visit Dietary [...] Memory Concerns BH possible UTI, cramping, frequency R30.0 Amb Documentation ER f/u abdominal pain Reason for Visit Aphasia Apnea Fatigue History of seizures Loud snoring Memory loss Migraine Morbid obesity Acute UTI Fatty liver disease, nonalcoholic Frequent UTI UTI (urinary tract infection) Additional Source Comments INFORMATION SOURCE (unrecogn ized section and content) DATE CREATED AUTHOR 08/27/2021 [employer] DATE CREATED AUTHOR AUTHOR'S ORGANIZ ATION 01/01/2023 [facility] DATE CREATED AUTHOR AUTHOR'S ORGANIZ ATION 01/30/2024 [facility] DATE CREATED AUTHOR AUTHOR'S ORGANIZ ATION 06/25/2024 Hernández Mike [facility] DATE CREATED AUTHOR AUTHOR'S ORGANIZ ATION 06/27/2024 [facility] DATE CREATED AUTHOR AUTHOR'S ORGANIZ ATION 06/28/2024 [facility] Specialists EPIC REASON FOR VISIT (unrecogniz ed section and [...] Member Role Status Dates Manisha Marc APRN WIRE ANNEALER-C Primary Care Provider Active Team Status: Active Member Role Status Dates Manisha Marc APRN WIRE ANNEALER-C Primary Care Provider, Attending Provider Active Team Status: Inactive Member Role Status Dates Manisha Marc APRN WIRE ANNEALER-C Primary Care Provider Active Celio Mullins DO Attending Provider Active Team Status: Inactive Member Role Status Dates Manisha Marc APRN WIRE ANNEALER-C Primary Care Provider Active Clinton Frazier MD Attending Provider Active Team Status: Inactive Member Role Status Dates Manisha Marc APRN WIRE ANNEALER-C Primary Care Provider Active Start: July 032022 End: July 03, 2023 Celio Mullins DO Attending Provider Active St art: July 03, 2023 End: July 03, 2023 Team Status: Active Member Role Status Dates Manisha Marc APRN WIRE ANNEALER-C Primary Care Provider Active Start: July 032022 Edward Gilmore MD Attending Provider Active Start: July 03, 2023 Team Status: Inactive Member Role Status Dates JOSY Daly Attending Provider Active S tart: July 07, 2023 End: July 07, 2023 Team Status: Inactive Member Role Status Dates Celio Mullins DO Attending Provider Active St art: July 15, 2023 End: July 15, 2023 Team Status: Inactive Member Role Status Dates Manisha Marc APRN WIRE ANNEALER-C Primary Care Provider Active Start: July End: July 19, 2023 Clinton Frazier MD Attending Provider Active Start: July 19, 2023 End: July 19, 2023 Team Status: Inactive Member Role Status Dates Manisha Marc APRN WIRE ANNEALER-C Attending Provider Act rafal Start: August 13, 2023 End: August 13, 2023 Team Status: Inactive Member Role Status Dates Nely Cage [facility] Attending Provider Active Start: August 19, 2023 End: August 19, 2023 Team Status: Active Member Role Status Dates Manisha Marc APRN WIRE ANNEALER-C Primary Care Provider, Attending Provider Active Start: August 19, 2023 Team Status: Inactive Member Role Status Dates Manisha Marc APRN WIRE ANNEALER-C Attending Provider Act rafal Start: September 03, 2023 End: September 03, 2023 Team Status: Inactive Member Role Status Dates Manisha Marc APRN WIRE ANNEALER-C Primary Care Provider Active Start: October 012023 End: October 01, 2023 Celio Mullins DO Attending Provider Active St art: October 01, 2023 End: October 01, 2023 Team Status: Active Member Role Status Dates Manisha Marc APRN WIRE ANNEALER-C Primary Care Provider Active Start: August 142022 Edward Gilmore MD Attending Provider Active Start: August 14, 2023 Team Status: Active Member Role Status Dates Manisha Marc APRN WIRE ANNEALER-C Primary Care Provider, Attending Provider Active Start: October 06, 2023 Team Status: Inactive Member Role Status Dates Manisha Marc APRN WIRE ANNEALER-C Primary Care Provider Active Start: October 082023 End: October 08, 2023 Gwen Cox DO Attending Provider Active Start: October 08, 2023 End: October 08, 2023 Team Status: Active Member Role Status Dates Manisha Rohrbacher , ASPHALT DISTRIBUTOR TENDER WIRE ANNEALER-C Primary Care Provider, Attending Provider Active Start: October 30, 2023 Team Status: Inactive Member Role Status Dates Manisha Marc APRN WIRE ANNEALER-C Primary Care Provider, Attending Provider Active Start: November 03, 2023 End: November 03, 2023 Team Status: Active Member Role Status Dates Manisha Marc ASPHALT DISTRIBUTOR TENDER WIRE ANNEALER-C Primary Care Provider Active Start: August Edward Gilmore MD Attending Provider Active Start: September 10, 2023 Team Status: Inactive Member Role Status Dates Manisha Marc APRN WIRE ANNEALER-C Primary Care Provider Active Start: November 26, 2023 End: November 26, 2023 Celio Mullins DO Attending Provider Active St art: November 26, 2023 End: November 26, 2023 Team Status: Active Member Role Status Dates Manisha Marc APRN WIRE ANNEALER-C Primary Care Provider Active Start: January 01, 2024 Edward Gilmore MD Attending Provider Active Start: January 01, 2024 Team Status: Active Member Role Status Dates Manisha Marc APRN WIRE ANNEALER-C Primary Care Provider Active Start: April 03, 2024 Edward Gilmore MD Attending Provider Active Start: April 03, 2024 Team Status: Active Member Role Status Dates Manisha Marc APRN WIRE ANNEALER-C Primary Care Provider Active Start: April 12, 2024 Jaymie Griffin DO Attending Provider Active Start: April 12, 2024 Team Status: Inactive Member Role Status Dates Manisha Marc APRN WIRE ANNEALER-C Primary Care Provider, Attending Provider Active Start: April 21, 2024 End: April 21, 2024 Team Status: Active Member Role Status Dates Manisha Marc APRN WIRE ANNEALER-C Primary Care Provider Active Start: April 12, 2024 Agusto Rojas DO Attending Provider Active Sta rt: April 12, 2024 Team Status: Active Member Role Status Dates Manisha Marc ASPHALT DISTRIBUTOR TENDER WIRE ANNEALER-C Primary Care Provider Active Start: April 15, 2024 Agusto Rojas DO Attending Provider Active Sta rt: April 15, 2024 Team Status: Active Member Role Status Dates Manisha Marc APRN WIRE ANNEALER-C Primary Care Provider Active Start: April 192023 Edward Gilmore MD Attending Provider Active Start: May 13, 2024 Team Status: Active Member Role Status Dates Manisha Marc APRN WIRE ANNEALER-C Primary Care Provider, Attending Provider Active Start: June 07, 2024 Team Status: Inactive Member Role Status Dates Manisha Marc APRN WIRE ANNEALER-C Primary Care Provider Active Start: May End: [...] Member Role Status Dates Manisha Marc APRN WIRE ANNEALER-C Primary Care Provider, Attending Provider Active Start: June 21, 2024 End: June 21, 2024 Supervisor Picking Crew Relationship Specialty Start Date End Date Thaddeus Rod MD [address] [place] [address] PCP - General Family Medicine 04/24/23 [employer] Relationship Specialty Start Date End Date Thaddeus Rod MD [address] [place] [id number] PCP - General Family Medicine 04/24/23 [employer] Relationship Specialty Start Date End Date Thaddeus Rod MD [address] [place] [id number] PCP - General Family Medicine 04/24/23 Goals (unrecognized section and content) Goals may [...] BE BASED ON THE PRIMARY CLINICAL RECORDS. [facility] [employer] [facility]. provides no warranty or guarantee of the accuracy or completeness of information in this document.
[2024-06-29 13:19] LABS: Basophils Absolute Auto 0.1 10^3/uL (0.0-0.1); Basophils Percent Auto 0.4 % (0.2-2.0); Eosinophils Absolute Auto 0.2 10^3/uL (0.0-0.7); Eosinophils Percent Auto 1.4 % (0.9-7.0); Hematocrit 37.6 % (36.0-48.0); Hemoglobin 12.3 g/dL (12.0-16.0); Immature Granulocytes Abs Auto 0.03 10^3/uL (0.00-0.03); Immature Granulocytes Pct Auto 0.3 % (0.0-0.5); Lymphocytes Percent Auto 26.6 % (20.5-60.0); Mean Corpuscular HGB Conc 32.7 g/dL (29.9-35.2); Mean Corpuscular Hemoglobin 27.4 pg (26.7-34.0); Mean Corpuscular Volume 83.7 fL (81.0-99.0); Mean Platelet Volume 10.1 fL (9.5-13.5); Monocytes Absolute Auto 0.5 10^3/uL (0.3-0.8); Monocytes Percent Auto 4.1 % (1.7-12.0); Neutrophils Absolute Auto 7.6 10^3/uL (1.4-6.5); Neutrophils Percent Auto 67.2 % (43.0-75.0); Platelet Count 259 10^3/uL (150-450); Red Blood Count 4.49 10^6/uL (4.20-5.40); Red Cell Distribution Width 15.9 % (11.0-15.0); White Blood Count 11.3 10^3/uL (4.0-11.0)
[2024-06-29 13:29] LABS: C Reactive Protein 0.74 mg/dL (<=0.50); Lactate Dehydrogenase 202 U/L (81-234)
[2024-06-29 13:30] LABS: Erythrocyte Sedimentation Rate 41 mm/hr (<=20)
[2024-06-29 13:50] LABS: Percent Iron Saturation 13.2 %
[2024-06-30 04:08] LABS: Vitamin B12 647 pg/mL (232-1245)
[2024-07-01 16:10] LABS: Albumin 3.5 g/dL (2.9-4.4); Alpha-1-Globulin 0.2 g/dL (0.0-0.4); Alpha-2-Globulin 0.8 g/dL (0.4-1.0); Gamma Globulin 1.1 g/dL (0.4-1.8); Immunoglobulin A, Qn, Serum 130 mg/dL (87-352); Immunoglobulin G, Qn, Serum 1117 mg/dL (586-1602); Immunoglobulin M, Qn, Serum 148 mg/dL (26-217); Protein, Total 6.7 g/dL (6.0-8.5)
== END 2024-07-14 08:30 | disposition home or self-care (01) ==
LOC: HEMC 07:40
PROVIDERS: PCP Nurse Practitioner Family; Visit Provider Internal Medicine Hematology & Oncology
DX: D72.829 Elevated white blood cell count, unspecified (principal); D64.9 Anemia, unspecified; I10 Essential (primary) hypertension; Z90.49 Acquired absence of other specified parts of digestive tract; K90.9 Intestinal malabsorption, unspecified; D50.9 Iron deficiency anemia, unspecified; K21.9 Gastro-esophageal reflux disease without esophagitis; K76.0 Fatty (change of) liver, not elsewhere classified; E28.2 Polycystic ovarian syndrome; Z87.440 Personal history of urinary (tract) infections
CPT/HCPCS: 36415; 82607; 82728; 82784; 83540; 83550; 83615; 84155; 84165; 85025; 85652; 86140; 86334; G0463

== ENCOUNTER 2024-08-02 07:47 | Outpatient (RCR) | payer OTHER, SELFPAY ==
[2024-07-26 13:55] VITALS: BP 134/70; PULSE 100; TEMP 36.4; O2SAT 97
[2024-07-26] MEDS: FERUMOXYTOL 510 MG in 0.9 % SODIUM CHLORIDE 100 ML 234 MG IV (14:09)
[2024-08-02 12:00] VITALS: BP 143/80; PULSE 100; TEMP 36.3; O2SAT 98
[2024-08-02] MEDS: FERUMOXYTOL 510 MG in 0.9 % SODIUM CHLORIDE 100 ML 234 MG IV (12:05)
== END 2024-08-17 23:59 | disposition home or self-care (01) ==
LOC: HEMC 07:47
PROVIDERS: PCP Nurse Practitioner Family; Visit Provider Internal Medicine Hematology & Oncology
DX: D50.9 Iron deficiency anemia, unspecified (principal); K90.9 Intestinal malabsorption, unspecified; D72.829 Elevated white blood cell count, unspecified; D64.9 Anemia, unspecified
CPT/HCPCS: 96365; Q0138

== ENCOUNTER 2024-08-24 11:53 | Outpatient (OUT) | payer OTHER, SELFPAY ==
[2024-08-24 12:59] LABS: Percent Iron Saturation 25.5 %
[2024-08-25 06:08] LABS: Measles Antibodies, IgG 28.3 AU/mL (Immune >16.4); Mumps Abs, IgG <9.0 AU/mL (Immune >10.9); Rubella Antibodies, IgG <0.90 index (Immune >0.99)
== END 2024-08-24 11:54 | disposition home or self-care (01) ==
LOC: LAB 11:55
PROVIDERS: PCP Nurse Practitioner Family; Visit Provider Nurse Practitioner Family
DX: D50.9 Iron deficiency anemia, unspecified (principal); Z01.84 Encounter for antibody response examination
CPT/HCPCS: 36415; 83540; 83550; 86735; 86762; 86765

== ENCOUNTER 2024-10-12 07:44 | Outpatient (RCR) | payer OTHER, SELFPAY ==
--- OUTSIDE RECORDS SUMMARY | 2024-09-07 07:35 | XMS_ITS | CCD ---
Author Organization [facility] Care Team Providers Care 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 Name Role Phone BRENT KINNEY Referring Unavailable [...] Provider MD Edward Gilmore Attending Provider [phone] ROSITA Marc Primary Care Provider MD Edward Gilmore Attending Provider Garret CROWLEY, Andrius Vytautcortez Attending Unavailable Giedrakatalina CROWLEY, Andrius Vytautas Attending Unavailable Garret CROWLEY, Andrius Vytautas Attending Unavailable Giwill CROWLEY, Andrius Vytautas Attending Unavailable ROSITA Marc Primary Care Provider MD Edward Gilmore Attending Provider [phone] ROSITA Marc Primary Care Provider MD Edward Gilmore Attending Provider ROSITA Hassan Attending Provider ROSITA Marc Primary Care Provider MD Edward Gilmore Attending Provider ROSITA Hassan Attending Provider Thaddeus Rod MD Primary Care Provider Manisha Marc APRN Primary Care Provider Edward Gilmore MD Attending Provider Casandra Hassan APRN Attending Provider Manisha Marc APRN Attending Provider MARKO OSCAR Attending Unavailable MELA ANDERSON Attending Unavailable GWEN COX Attending Unavailable MANISHA MARC Referring Unavailab MARIO Garcia Attending Unavailable GWEN COX Referring Unavailable CONSUELO LOVE Attending Unavailable Tari BECKER, Manisha Primary Care Provider Edward Gilmore MD Attending Provider [phone] NO FAMILY, PHYSICIAN Primary Care Provider Unava ilable Ly DOHilaria Attending Provider [phone] Manisha Marc APRN Primary Care Provider Edward Gilmore MD Attending Provider Manisha Marc Admitting Unavailable NO FAMILY, PHYSICIAN Primary Care Unavailable Manisha Marc Attending Unavailable Edward Gilmore Admitting Unavailab le Edward Gilmore Attending Unavailab le Manisha Marc Primary Care Unavailable Celio Mullins Admitting Unavailable Celio Mullins Attending Unavailable DiyarManisha Primary Care Unavailable Ly, Hilaria L Admitting Unavailable Ly, Hilaria L Attending Unavailable Manisha Marc Primary Care Unavailable Rohrbacher, Manisha Attending Unavailable Manisha Marc Admitting Unavailable Casandra Hassan Admitting Unavailable Casandra Hassan Attending Unavailable Gwen Cox Admitting Unavailab Gwen Avila Attending Unavailab Manisha Berry Primary Care Unavailable Allergies Allergy Classification Reported Allergen(s) Allergy Type Date of Onset Reaction(s) Facility (20 sources) Amoxicillin; Translations: [AMOXICILLIN] Drug Allergy 07-08-20 16 rash, [facility] Repository (20 sources) Cefaclor; Translations: [CEFACLOR] Drug Allergy 04-14-20 15 [facility] Repository (20 sources) Erythromycin; Translations: [ERYTHROMYCIN] Drug Allergy 04-14-20 15 hives, [facility] Repository (19 sources) Cefaclor; Translations: [Ceclor] Drug Allergy 04-17-20 15 [facility] Repository (20 sources) Erythromycin Drug Allergy 04-17-20 15 Unknown Reaction, [facility] Repository (20 sources) Cephalosporins (Antibiotic); Translations: [Cephalosporins] Allergy to substance 12-10-19 22 Unknown Reaction, Rash [facility] (2 sources) Lactulose Drug Allergy 02-12-20 20 Unknown Reaction [facility] (1 source) Erythromycin Drug Allergy 08-28-19 25 [facility] Repository Medications Current Medications Medication Drug Class(es) Dates Sig (Normalized) Sig (Original) [id number] 200 actuat albuterol 0.09 mg/actuat metered dose [...] puff(s) by in halation every six hours as needed for wheezing Albuterol Sulfate 90 mcg/actuation HFA aerosol inhaler Active 2 PUFF INHALATION Q6H as needed for Shortness Of Breath Or Wheezing February 11, 2020 11:00pm take 2 puff(s) by in halation every six hours albuterol HFA 90 mcg/act inhaler Inhale 2 puffs every 6 (six) hours if needed. Active take 1 puff(s) by in halation every four hours as needed Ventolin HFA 108 (90 Base) MCG/ACT 1 puff as needed Inhalation every 4 hrs Active baclofen 10 mg oral tablet (18 sources) gamma-Aminobutyric Acid-ergic Agonist Start: 06-15-2024 take 1 tablet by mouth once daily Baclofen 10 mg tablet Active 10 MG PO Daily June 14, 2024 11:00pm Start: 06-15-2024 Baclofen Activ e MG PO June 14, 2024 11:00pm Start: 06-15-2024 Baclofen Activ e MG PO June 15, 2024 12:00am cariprazine 1.5 mg oral capsule (13 sources) Atypical Antipsychotic Start: 10-10-2023 Vraylar 1.5 MG capsule 10/10/2023 Active take 1 capsule by [facility] every twenty-four hours Vraylar 1.5 MG 1 capsule Orally Once a day Active clindamycin 150 mg oral capsule (9 sources) Lincosamide Antibacterial Start: 08-28-2024 take 3 capsules by mouth three times daily Clindamycin Hcl 150 mg capsule Active 450 MG PO Three times daily 63 August 28, 2024 12:00am Start: 06-15-2024 End: 07-22-2024 Clindamycin Hcl 300 mg capsu le Discontinued MG PO June 14, 2024 11:00pm July 22, 2024 10:48am Start: 06-15-2024 Clindamycin Hc l Active MG PO June 14, 2024 11:00pm diazePAM 10 mg oral tablet (11 sources) Benzodiazepine Start: 09-25-2023 take 1 tablet [...] Reuptake Inhibitor Start: 11-26-2023 End: 04-05-2024 take 2 capsules by mouth once daily Duloxetine 60 mg capsule,delayed release(DR/EC) Active 120 MG PO Daily 180 90 April 05, 2024 12:28pm Start: 11-26-2023 End: 04-05-2024 take 120 mg [...] Tari Garnett Start: 02-17-2020 End: 11-26-2023 take 3 capsules by mouth once daily at bedtime Duloxetine 30 mg Capsule,Delayed Release(Dr/Ec) Discontinued 90 MG PO Daily at bedtime February 16, 2020 11:00pm November 26, 2023 7:33am Start: 02-17-2020 End: 11-26-2023 take 90 mg [...] day for 90 days Active Cymbalta Active fluocinonide 0.5 mg/ml topical solution (11 sources) Corticosteroid Start: 02-18-2024 fluocinonide (Lidex) 0.05 % external solution apply 3 TO 4 drops to scalp once daily ON FRIDAY THROUGH FRIDAY then off WEEKENDS 02/18/2024 Active gabapentin 300 mg oral capsule (20 sources) Anti-epileptic Agent Start: 02-12-2020 End: 10-01-2023 take 1 capsule by mouth three times daily as needed for pain Gabapentin 300 mg capsule Active 300 MG PO Three times daily as needed for pain or fever October 01, 2023 12:00am Free[employer] capsule Orally Once a day PRN; Note: Source Status: RefillPRN; Refills: 0; Provider: Tari Garnett take 1 capsule by [facility] once daily as needed Gabapentin 300 MG 1 capsule Orally Once a day PRN for 30 days PRN Active ibuprofen 800 mg oral tablet (8 sources) Nonsteroidal Anti-inflammatory Drug Start: 06-15-2024 take 1 tablet by mouth twice daily as needed for pain Ibuprofen 800 mg tablet Active 800 MG PO Twice daily as needed for fever or pain June 14, 2024 11:00pm Start: 06-15-2024 Ibuprofen Acti ve MG PO June 14, 2024 11:00pm lamoTRIgine 25 mg oral tablet (20 sources) Mood Stabilizer, Anti-epileptic Agent Start: 10-01-2023 take 1 tablet by mouth twice daily Lamotrigine 25 mg tablet Active 25 MG PO Twice daily October 01, 2023 12:00am lisinopril 10 mg oral tablet (20 sources) Angiotensin Converting Enzyme Inhibitor Start: 11-26-2023 End: 04-05-2024 take 1 tablet by mouth once daily Lisinopril 10 mg tablet Active 10 MG PO Daily 90 90 April 05, 2024 12:28pm Start: 10-01-2023 End: 11-26-2023 take 10 mg by mouth once daily Lisinopril 20 mg tablet Discontinued 10 MG PO Daily October 01, 2023 9:14am November 26, 2023 7:34am Start: 10-01-2023 End: 11-26-2023 take 10 mg by mouth once daily Lisinopril Discontinued 10 MG PO Daily October 01, 2023 9:14am November 26, 2023 7:34am Start: 10-01-2023 End: 11-03-2023 take 1 tablet by mouth once daily Lisinopril 10 mg tablet Discontinued 10 MG PO Daily October 01, 2023 12:00am November 03, 2023 1:25pm Start: 12-07-2021 End: 10-01-2023 take 1 tablet by mouth once daily Lisinopril 20 mg tablet Discontinued 20 MG PO Daily December 06, 2021 11:00pm October 01, 2023 9:18am LISINOPRIL PO Li sinopril Active take 1 tablet by miranda th every twenty-four hours Lisinopril 10 MG 1 tablet Orally Once a day for 90 days Active Lisinopril Activ e melatonin 10 mg oral tablet (20 sources) Start: 10-01-2023 End: 10-01-2023 take 1 tablet by mouth once daily at bedtime Melatonin 10 mg tablet Active 10 MG PO Daily at bedtime October 01, 2023 9:15am Start: 10-01-2023 End: 10-01-2023 take 1 mg [...] Ac tive meloxicam 15 mg oral tablet (18 sources) Nonsteroidal Anti-inflammatory Drug Start: 06-15-2024 take 1 tablet by mouth once daily Meloxicam 15 mg tablet Active 15 MG PO Daily June 14, 2024 11:00pm Start: 06-15-2024 Meloxicam Acti ve MG PO June 14, 2024 11:00pm 24 [...] tablet 11 04/01/2024 04/01/2025 Active Start: 11-26-2023 Metformin 500 mg tablet extended release 24 hr Active 1000 MG PO Daily November 25, 2023 11:00pm Start: 11-26-2023 take 1000 mg by mout h once daily Metformin Active 1000 MG PO Daily November 25, 2023 11:00pm Start: 02-12-2020 End: 11-26-2023 take 1 tablet by mouth twice daily Metformin 500 mg tablet Discontinued 500 MG PO Twice daily October 01, 2023 12:00am November 26, 2023 7:34am FreeTextSi tablet with a meal Orally twice daily; Note: Source Status: Taking; Provider: Tari Dyer ( ) metFORMIN, OSM, (Fortamet) 500 MG 24 hr tablet metFORMIN HCl Active Metformin & Diet Manage Prod (5 sources) Metformin & Diet Manage Prod Active Multiple Vitamins-Minerals (MULTI COMPLETE PO) (11 sources) Multiple Vitamins-Minerals (MULTI COMPLETE PO) Multi Complete Active Multivitamin preparation (20 sources) Start: 12-07-2021 take 1 tablet by mouth once daily Multivitamin Active 1 TAB PO Daily December 07, 2021 12:00am Start: 12-07-2021 take 1 tablet by miranda th once daily Multivitamin Active 1 TAB PO Daily December 06, 2021 11:00pm Multivitamin Act rafal Multivitamin Tablet (5 sources) Start: 12-07-2021 take 1 tablet by mouth once daily Multivitamin Tablet Active 1 TAB PO Daily December 06, 2021 11:00pm ondansetron 4 mg oral tablet (4 sources) Serotonin-3 Receptor Antagonist Start: 07-07-2023 take 1 tablet by mouth three times daily as needed Zofran 4 MG 1 tablet Orally tid prn ODT Jun, Active pantoprazole 40 mg delayed release oral tablet (3 sources) Proton Pump Inhibitor Start: 08-19-2024 take 1 tablet by mouth once daily Pantoprazole 40 mg tablet,delayed release (DR/EC) Active 40 MG PO Daily August 19, 2024 12:00am polysaccharide iron complex 391 mg oral capsule (11 sources) Start: 03-17-2024 End: 03-17-2025 take 1 [...] m tablet Discontinued 1000 MG PO Daily as needed October 01, 2023 9:15am January 08, 2024 10:49am Start: 02-12-2020 End: 02-12-2020 take 1 mg by mouth once daily Valacyclovir 1 gram tabl et Discontinued 1 MG PO Daily February 11, 2020 11:00pm February 12, 2020 7:16pm Start: 02-12-2020 End: 02-12-2020 take 1 mg [...] Sig (Original) ARIPiprazole 5 mg oral tablet (18 sources) Atypical Antipsychotic Start: 03-05-2020 End: 12-07-2021 take 1 tablet by mouth once daily Aripiprazole 5 mg Tablet Discontinued 5 MG PO Daily March 04, 2020 11:00pm December 07, 2021 9:45am Savanna Masterson-Taki etta Corrales Active 24 hr buPROPion hydrochloride 150 mg extended release oral tablet (16 sources) Aminoketone Start: 02-12-2020 End: 02-17-2020 take 1 tablet by mouth once daily Bupropion Hcl 150 mg tablet extended release 24 hr Discontinued 150 MG PO Daily February 11, 2020 11:00pm February 17, 2020 10:57am ciprofloxacin 250 mg oral tablet (11 sources) Quinolone Antimicrobial Start: 08-12-2024 End: 08-19-2024 take 1 tablet by mouth twice daily Ciprofloxacin Hcl (Cipro) 250 mg tablet Discontinued 250 MG PO Twice daily 10 August 12, 2024 12:00am August 19, 2024 9:00am Start: 06-21-2024 End: 07-22-2024 Ciprofloxacin Hcl 500 mg tab let Discontinued 500 MG PO June 21, 2024 12:00am July 22, 2024 10:48am citalopram 40 mg oral tablet (20 sources) Serotonin Reuptake Inhibitor Start: 02-12-2020 End: 02-17-2020 Citalopram 40 mg tablet Discontinued MG TABLET February 11, 2020 11:00pm February 12, 2020 7:18pm Start: 02-12-2020 End: 02-12-2020 Citalopram Discontinued MG T ABLET February 11, 2020 11:00pm February 12, 2020 7:18pm ferrous sulfate 325 mg oral tablet (20 sources) Start: 11-04-2023 End: 08-09-2024 take 1 tablet by mouth once daily Ferrous Sulfate 325 mg (65 mg iron) tablet Discontinued 325 MG PO Daily 90 90 April 21, 2024 11:00pm August 09, 2024 3:57pm fluticasone propionate 0.05 mg/actuat metered dose nasal spray (20 sources) Corticosteroid Start: 10-01-2023 End: 11-26-2023 Fluticasone Propionate 50 mcg/actuation spray,suspension Discontinued 2 SPRAY INTRANASAL Daily October 01, [...] sources) Antihistamine Start: 12-07-2021 End: 10-01-2023 take 1 capsule by mouth three times daily as needed for anxiety Hydroxyzine Pamoate 25 mg capsule Discontinued 25 MG PO Three times daily as needed for Anxiety December 06, 2021 11:00pm October 01, 2023 [...] succinate 50 mg extended release oral tablet (16 sources) beta-Adrenergic Toña Start: 02-12-2020 End: 12-07-2021 take 1 tablet by mouth once daily Metoprolol Succinate 50 mg tablet extended release 24 hr Discontinued 50 MG PO Daily February 11, 2020 11:00pm December 07, 2021 9:46am niacin 500 mg oral tablet (11 sources) Nicotinic Acid Start: 11-26-2023 End: 04-21-2024 Niacin (Inositol Niacinate) 500 mg tablet Discontinued TAB PO November 25, 2023 11:00pm April 21, 2024 1:37pm Start: 11-26-2023 End: 04-21-2024 Niacin (Inositol Niacinate) Discontinued TAB PO November 25, 2023 11:00pm April 21, 2024 1:37pm nitrofurantoin, macrocrystals 25 mg / nitrofurantoin, monohydrate 75 mg oral capsule (9 sources) Nitrofuran Antibacterial Start: 06-15-2024 End: 06-21-2024 take 1 capsule by mouth every twelve hours at mealtime Nitrofurantoin Monohyd/M-Cryst (Macrobid) 100 mg capsule Discontinued 100 MG PO Every 12 hours 05 22June 14, 2024 11:00pm June 21, 2024 11:32am must administer with a meal/food Start: 05-31-2021 take 1 capsule by [facility] every twelve hours Macrobid 100 MG 1 cap(s) Orally bid for 5 day(s) May, Active phenazopyridine hydrochloride 200 mg oral tablet (12 sources) Start: 08-09-2024 End: 08-19-2024 take 1 tablet by mouth three times daily Phenazopyridine (Pyridium) 200 mg tablet Discontinued 200 MG PO Three times daily August 09, 2024 12:00am August 19, 2024 9:01am Start: 06-15-2024 End: 06-21-2024 take 1 tablet by mouth three times daily as needed for pain Phenazopyridine (Pyridium) 200 mg tablet Discontinued 200 MG PO Three times daily as needed for pain 04 20June 14, 2024 11:00pm June 21, [...] Orally bid for 5 day(s) May, Active Sod Picosulf-Mag Ox-Citric Ac (3 sources) Start: 07-20-2024 End: 08-19-2024 take 1 dose by mouth once daily Sod Picosulf-Mag Ox-Citric Ac (Clenpiq) 10 mg-3.5 gram- 12 gram/175 mL solution Discontinued 175 ML PO Daily 350 0 July 20, 2024 12:00am August 19, 2024 9:01am take first dose at 3PM evening before colonoscopy; 2nd dose at 9pm the night before colonoscopy sulfamethoxazole 800 mg / trimethoprim 160 mg oral tablet (3 sources) Dihydrofolate Reductase Inhibitor Antibacterial, Sulfonamide Antimicrobial Start: 08-09-2024 End: 08-12-2024 take 1 tablet by mouth twice daily Sulfamethoxazole- Trimethoprim (Bactrim Ds) 800-160 mg tablet Discontinued 1 TAB PO Twice daily 10 August 09, 2024 12:00am August 12, 2024 8:45am ubidecarenone 200 mg oral capsule (11 sources) Start: 11-26-2023 End: 04-21-2024 take 10 capsules by mouth once daily Coenzyme Q10 200 mg capsule Discontinued 200 MG PO Daily November 25, 2023 11:00pm April 21, 2024 1:36pm Problems Active Problems Problem Classification Problem Date Documented Da te Episodic/Chronic Anxiety disorders (20 sources) Anxiety; Translations: [Anxiety disorder, unspecified] Chronic Asthma (20 sources) Exacerbation of intermittent asthma; Translations: [Mild intermittent asthma with (acute) exacerbation] Chronic Attention-deficit, conduct, and disruptive behavior disorders (4 sources) Attention deficit hyperactivity disorder, predominantly inattentive type; Translations: [Attention-deficit hyperactivity disorder, predominantly inattentive type] 06-28-2024 Chronic Attention-deficit, conduct, and disruptive behavior disorders (2 sources) Attention deficit hyperactivity disorder; Translations: [Attention-deficit hyperactivity disorder, unspecified type] 08-18-2024 Chronic Cardiac dysrhythmias (15 sources) Palpitations; Translations: [Palpitations] 11-03-2023 Episodic Chronic obstructive pulmonary disease and bronchiectasis (5 sources) Acute exacerbation of chronic bronchitis; Translations: [Bronchitis, chronic with acute exacerbation] Chronic Chronic obstructive pulmonary disease and bronchiectasis (1 source) Bronchitis, not specified as acute or chronic Episodic Conditions associated with dizziness or vertigo (15 sources) Lightheadedness; Translations: [Dizziness and giddiness] 11-03-2023 Episodic Deficiency and other anemia (8 sources) Iron deficiency anemia; Translations: [Iron deficiency anemia, unspecified] 06-08-2024 Episodic Deficiency and other anemia (2 sources) Iron deficiency anemia, unspecified; Translations: [Iron deficiency anemia, unspecified] Onset: 08-19-2024 08-24-2024 Episodic Delirium, dementia, and amnestic and other cognitive disorders (2 sources) Cognitive disorder; 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] 08-18-2024 Chronic Epilepsy; convulsions (20 sources) Seizure disorder; Translations: [Epilepsy, unspecified, not intractable, without status epilepticus] Onset: 10-08-2023 Chronic Essential hypertension (20 sources) Essential hypertension; Translations: [Essential (primary) hypertension] Onset: 02-11-2023 Chronic Genitourinary symptoms and ill-defined conditions (20 sources) Dysuria; Translations: [Hematuria, unspecified] Onset: 06-03-2018 Resolved: 05-31-2021 Episodic Headache; including migraine (20 sources) Refractory migraine without aura; Translations: [Migraine without aura, intractable, without status migrainosus] Chronic Immunizations and screening for infectious disease (7 sources) Contact with and (suspected) exposure to other viral communicable diseases; Translations: [Encounter for screening for human papillomavirus (HPV)] Onset: 06-17-2021 Resolved: 07-06-2021 Episodic Malaise and fatigue (13 sources) Fatigue; Translations: [Other fatigue] 04-22-2024 Episodic Menstrual disorders (20 sources) Amenorrhea; Translations: [Amenorrhea, unspecified] Onset: 03-07-2022 Chronic Mood disorders (20 sources) Recurrent major depression in partial remission; Translations: [Major depressive disorder, recurrent, in partial remission] Onset: 05-31-2024 Chronic Nausea and vomiting (1 source) Nausea with vomiting, unspecified Episodic Nutritional deficiencies (11 sources) Iron deficiency; Translations: [Iron deficiency] 11-04-2023 Episodic Other endocrine disorders (20 sources) Polycystic ovary syndrome; Translations: [Polycystic ovarian syndrome] 10-01-2023 Chronic Other endocrine disorders (9 sources) Polycystic ovarian syndrome; Translations: [Polycystic ovaries] Onset: 10-01-2023 Chronic Other endocrine disorders (11 sources) Polycystic ovary; Translations: [Polycystic ovarian syndrome] Onset: 02-11-2023 02-11-2023 Chronic Other female genital disorders (4 sources) Abnormal uterine and vaginal bleeding, unspecified; Translations: [ABNORMAL UTERINE VAGINAL BLEED UNS] Onset: 11-26-2022 Chronic Other female genital disorders (11 sources) Abnormal uterine bleeding; Translations: [Abnormal uterine and vaginal bleeding, unspecified] Onset: 02-11-2023 02-11-2023 Chronic Other female genital disorders (11 sources) Pain in female genitalia on intercourse; Translations: [Unspecified dyspareunia] Onset: 02-11-2023 02-11-2023 Chronic Other gastrointestinal disorders (1 source) Diarrhea, unspecified Episodic Other liver diseases (12 sources) Fatty (change of) liver, not elsewhere classified; Translations: [Nonalcoholic fatty liver disease] 06-21-2024 Chronic Other lower respiratory disease (8 sources) Snoring; Translations: [Snoring] 04-22-2024 Episodic Other lower respiratory disease (8 sources) Apnea; Translations: [Apnea, not elsewhere classified] 04-22-2024 Episodic Other lower respiratory disease (5 sources) Apnea, not elsewhere classified; Translations: [Apnea] 04-21-2024 Episodic Other lower respiratory disease (5 sources) Snoring; Translations: [Other respiratory abnormalities] 04-21-2024 Episodic Other nervous system disorders (17 sources) Chronic pain; Translations: [Other chronic pain] 06-28-2024 Chronic Other nervous system disorders (1 source) Other chronic pain Chronic Other nervous system disorders (9 sources) Aphasia; Translations: [Aphasia] 04-21-2024 Chronic Other nervous system disorders (20 sources) Neuropathy; Translations: [Polyneuropathy, unspecified] Onset: 05-31-2024 04-12-2024 Chronic Other nervous system disorders (6 sources) Aphasia; Translations: [Aphasia] 04-21-2024 Chronic Other nervous system disorders (11 sources) Carpal tunnel syndrome of right wrist; Translations: [Carpal tunnel syndrome, right upper limb] Onset: 05-31-2024 05-31-2024 Chronic Other nervous system disorders (7 sources) Paresthesia of skin; Translations: [Paresthesia of both hands] Episodic Other nervous system disorders (6 sources) Impaired cognition; Translations: [Other symptoms and signs involving cognitive functions and awareness] 06-23-2024 Episodic Other nervous system disorders (11 sources) Paresthesia; Translations: [Paresthesia of skin] Onset: 05-31-2024 05-31-2024 Episodic Other nutritional; endocrine; and metabolic disorders (13 sources) Body mass index 30+ - obesity; Translations: [Body mass index (BMI) 33.0-33.9, adult] Chronic Other nutritional; endocrine; and metabolic disorders (20 sources) Morbid obesity; Translations: [Morbid (severe) obesity due to excess calories] Onset: 02-11-2023 04-22-2024 Chronic Other nutritional; endocrine; and metabolic disorders (20 sources) Insulin resistance; Translations: [Metabolic syndrome] 10-01-2023 Chronic Other nutritional; endocrine; and metabolic disorders (14 sources) Morbid (severe) obesity due to excess calories; Translations: [Morbid obesity] Chronic Other nutritional; endocrine; and metabolic disorders [...] MALIG NEOPLASM CERV] Onset: 10-28-2022 Episodic Other skin disorders (3 sources) Excessive sweating; Translations: [Generalized hyperhidrosis] 08-10-2024 Episodic Other skin disorders (3 sources) Generalized hyperhidrosis; Translations: [Generalized hyperhidrosis] 08-09-2024 Episodic Other upper respiratory infections (4 sources) Acute upper respiratory infection, unspecified; Translations: [Acute pharyngitis, unspecified] Onset: 06-17-2021 Resolved: 06-17-2021 Episodic Residual codes; unclassified (11 sources) Obstructive sleep apnea syndrome; Translations: [Obstructive sleep apnea (adult) (pediatric)] 06-21-2024 Chronic Residual codes; unclassified (5 sources) Obstructive sleep apnea (adult) (pediatric); Translations: [Obstructive sleep apnea (adult)(pediatric)] 06-21-2024 Chronic Residual codes; unclassified (9 sources) Amnesia; Translations: [Other amnesia] 04-21-2024 Episodic Residual codes; unclassified (16 sources) Personal history of other specified conditions; Translations: [History of seizure] 04-21-2024 Episodic Residual codes; unclassified (6 sources) Other amnesia; Translations: [Memory loss] 04-21-2024 Episodic Skin and subcutaneous tissue infections (1 source) Cellulitis; Translations: [Cellulitis, unspecified] 08-28-2024 Episodic Spondylosis; intervertebral disc disorders; other back problems (20 sources) Sacroiliitis, not elsewhere classified; Translations: [Other intervertebral disc degeneration, lumbar region] Onset: 11-08-2022 Chronic Unclassified (1 source) Morbid (severe) obesity due to excess calories; Translations: [Morbid (severe) obesity due to excess calories] Onset: 10-01-2023 Unclassified (1 source) Food insecurity; Translations: [Food insecurity] Onset: 10-01-2023 Urinary tract infections (20 sources) Urinary tract infection, site not specified; Translations: [Acute urinary tract infection] Onset: 06-03-2018 Resolved: 05-31-2021 Episodic Viral infection (11 sources) Herpes simplex of female genitalia; Translations: [Herpesviral infection of other urogenital tract] Onset: 02-11-2023 02-11-2023 Chronic Viral infection (15 sources) Viral infection, unspecified; Translations: [Herpes simplex] Episodic Past or Other Problems Problem Classification Problem Date Documented Da te Episodic/Chronic Administrative/social admission (20 sources) Dietary counseling and surveillance; Translations: [Other specified counseling] Onset: 10-01-2023 Episodic Deficiency and other anemia (11 sources) Anemia; Translations: [Anemia, unspecified] Onset: 02-11-2023 02-11-2023 Episodic Diabetes mellitus without complication (20 sources) Impaired fasting glucose; Translations: [Prediabetes] Onset: 10-01-2023 Episodic Other endocrine disorders (11 sources) Disorder of endocrine system; Translations: [Endocrine disorder, unspecified] Onset: 02-11-2023 02-11-2023 Episodic Other lower respiratory disease (1 source) Personal history of other diseases of the respiratory system; Translations: [History of asthma Z87.09] Onset: 06-17-2021 Resolved: 06-17-2021 Episodic Other nutritional; endocrine; and metabolic disorders (11 sources) Abnormal weight gain; Translations: [Abnormal weight gain] Onset: 02-11-2023 02-11-2023 Episodic Unclassified (3 sources) Contact with and (suspected) exposure to covid-19 Z20.822 Unclassified (1 source) Low back pain, unspecified M54.50 Viral infection (1 source) COVID-19 Onset: 07-06-2021 Resolved: 07-06-2021 Results Test Name Value Interpretation Reference Range Facility Iron binding capacity [Mass/ volume] in Serum or Plasmaon 08-24-2024 Iron binding capacity [Mass/Vol] Iron binding capacity [Mass/volume] in Serum or Plasma 250.0-450. 0 [facility] Iron saturation [Mass Fracti on] in Serum or Plasmaon 08-24-2024 Iron saturation [Mass fraction] Iron saturation [Mass Fraction] in Serum or Plasma [facility] Laboratory - Chemistry and C hemistry - challengeon 08-24-2024 Iron [Mass/Vol] 81.0 ug/dL 50.0-170.0 [facility] Measles virus IgG Ab [Units/ volume] in Serum by Immunoassayon 08-24-2024 MeV IgG IA Qn (S) Measles virus IgG Ab [Units/volume] in Serum by Immunoassay Immune >16.4 [facility] Comment on above: Negative <13.5 Equiv ocal 13.5 - 16.4 Positive >16.4Presence of antibodies to Rubeola is presumptive evidenceof immunity except when acute infection is suspected. No Panel Informationon 08-24 Rubella IgG Antibody <0.90 index Abnormal Immune >0.99 [facility] Comment on above: Non-immune <0.90 Equ ivocal 0.90 - 0.99 Immune >0.99 Serum mumps virus IgG antibo dy assay (units/volume)on 08-24-2024 MuV IgG Qn (S) Serum mumps virus Ig G antibody assay (units/volume) Abnormal Immune >10.9 [facility] Comment on above: Negative <9.0 Equivo heike 9.0 - 10.9 Positive >10.9A positive result generally indicates past exposure toMumps virus or previous vaccination.Performed at: [facility] [address] [id number] Director: Cassius Zhong PhD, Phone: [phone] Pathology study report docum entOrdered By: Thaddeus Shah on 08-20-2024 Pathology study [facility] Other HCG ( test) ALIEcamden mejia Ql (U)Ordered By: Hilaria Burgos on 08-19-2024 HCG ( test) Ql (U) Urine human chorionic gonadotropin (hCG) detection by immunoassay [facility] HCG,Urineon 08-19-2024 Beta HCG ( test) Ql (U) Negative Normal [facility] Comment on above: Result Comment: PERF ORMED BY: [place] [address] PATHOLOGIST PROFESSOR OF COUNSELING RYLAN BENEDICT M.D. Performed By: #### U HCG #### [address] Justyn 08-19-2024 L --- Specimen: [id number] Received: 08/19/24 Status: RONYHari Joie Num: [id number] Spec Type: Surgical Subm Dr: Hilaria Burgos, Tissues: A Small Intestine - Biopsy/Polyp (SM BOWEL BX R/O CELIAC) B GASTRIC FOR HP (GASTRIC BX R/O H PYLORI) C Esophagus Biopsy (GE JUNCTION BX / ESOPHAGITIS) Procedures: SHEILA - MONIQUEN, HE/6, Gross/Micro L4/3, H PYLORI Age/ Patient Sex Location Account Attending Physician TysonAshly Gilberto 33/F [id number] Hilaria Burgos, DO SPEC NUM: [id number] RECD: 08/19/24 STATUS: ARLINE ZAVALA NUM: [id number] GRADY: 08/19/[address] [facility] [address]: Hilaria Burgos DO ENTERED: 08/19/[address] [facility] [address]: ABHISHEK TYPE: Surgical DEPT: S ENTERED BY: [id number] RECV BY: [id number] ORDERED: PAS - LGRN, HE/6, Gross/Micro L4/3, H PYLORI ORDERED: PAS - LGRN, HE/6, Gross/Micro L4/3, H PYLORI Pathological Diagnosis A. 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 Stomach (mucosal biopsies): Reactive gastropathy of antral mucosa Unremarkable fundic mucosa No Helicobacter pylori or dysplasia seen See microscopic description C. GE junction (mucosal biopsies): Active esophagitis with ulceration, glandular regeneration, granulation tissue formation, and intestinal (goblet cell) metaplasia No viral inclusions or dysplasia seen See microscopic description Clinical Information Iron deficient anemia intestinal malabsorption elevated white blood cells. Part A rule out celiac iron deficient anemia, Part B rule out H. pylori, Part C esophagitis Specimen: [id number] Received: 08/19/24 Status: ARLINE Zavala Num: [id number] Spec Type: Surgical Subm Dr: Hilaria Burgos, DO Tissues: A Small Intestine - Biopsy/Polyp (SM BOWEL BX R/O CELIAC) B GASTRIC FOR HP (GASTRIC BX R/O H PYLORI) C Esophagus Biopsy (GE JUNCTION BX / ESOPHAGITIS) Procedures: PAS - LGRN, HE/6, Gross/Micro L4/3, H PYLORI Patient: Ashly Mehta [id number] (Continued) Specimen: Received: 08/19/24 (Continued) Signed (signature on file) Thaddeus Shah Jr., MD 08/20/24 1417 Specimen: Received: 08/19/24 Status: ARLINE Zavala Num: [id number] Spec Type: Surgical Subm Dr: Hilaria Burgos, Tissues: A Small Intestine - Biopsy/Polyp (SM BOWEL BX R/O CELIAC) B GASTRIC FOR HP (GASTRIC BX R/O H PYLORI) C Esophagus Biopsy (GE JUNCTION BX / ESOPHAGITIS) Procedures: PAS - LGRN, HE/6, Gross/Micro L4/3, H PYLORI Patient: Ashly Mehta [id number] (Continued) Specimen: [id number] Received: 08/19/24 (Continued) Gross Description Part A is received in formalin labeled with the patients name, date of , and small bowel BX are 2 leal-green, focally erythematous, friable, 0.3 cm each in greatest dimension tissue bits. The specimen is entirely submitted in a single cassette. (1, ns, A) JG Part B is received in formalin labeled with the patients name, date of , and gastric BX are 2 leal-green, focally erythematous, friable, 0.3 cm each in greatest dimension tissue bits. The specimen is entirely submitted in a single cassette. (1, ns, B) JG Part C is received in formalin labeled with the patients name, date of , and GE junction BX are 2 leal-green, focally erythematous, friable, 0.2 and 0.3 cm in greatest dimension tissue bits. The specimen is entirely submitted in a single cassette. (1, ns, S25-C) Microscopic Description Microscopic examination performed Immunoperoxidase stain performed on formalin fixed and paraffin-embedded tissue sections (block B1) for Helicobacter pylori organisms is negative with a satisfactory control. Special stain for fungal organisms (PAS) performed on specimen C is negative with a satisfactory control. CPT Codes 25716 x 3, 66928, 66454 -- (more content not included)... Normal [facility] Urine Cultureon 08-09-2024 Bacteria identified Cx Nom (U) ORGANISM: Escherichia coli (ESBL) (O:ESCCOLESBL) [place] Count >100,000 Aerobic RENATE Charge (NMIC56) -- SUSCEPTIBILITY - ORGANISM: O:ESCCOLESBL ANTIBIOTIC INTERPRETATION RENATE Amikacin S <16 Amoxacillin/K Clavulanate S <8 Ampicillin R* >16 Ampicillin/Sulbactam S 88/4 Aztreonam ESBL 16 Cefazolin R* >16 Cefepime R* >16 Ceftazidime ESBL 4 Ceftazidime/Avibactam S <4 Ceftolozane/Tazobactam S <2 Ceftriaxone ESBL >32 Cefuroxime R* >16 Ciprofloxacin S <0.25 Ertapenem S <0.5 Gentamicin S <2 Levofloxacin S <0.5 Meropenem S <1 Meropenem/Vaborbactam S <2 Nitrofurantoin S <32 Piperacillin/Tazobactam S <8 Tetracycline R >8 Tigecycline S <2 Tobramycin S <2 Trimethoprim/Sulfametho xazole R >2 S = SUSCEPTIBLE I = [...] RESISTANT TO ALL B-LACTAM DRUGS. PERFORMED BY: [place] [address] PATHOLOGIST PROFESSOR OF COUNSELING RYLAN BENEDICT M.D. Normal [facility] Comment on above: Performed By: #### C UU #### [address] Urine cultureOrdered By: Keesha Marc on 08-09-2024 Bacteria identified Cx Nom (U) Abnormal [facility] Albumin [Mass/volume] in Ser um or Plasmaon 06-29-2024 Albumin [Mass/Vol] Albumin [Mass/volume ] in Serum or Plasma 2.9-4.4 [facility] Basophils Auto (Bld) [#/Vol] on 06-29-2024 Basophils (Bld) [#/Vol] Automated basoph il count 0.0-0.1 [facility] Basophils/100 WBC Auto (Bld) on 06-29-2024 Basophils/100 WBC (Bld) Automated basophil % 0. 2-2.0 [facility] Eosinophils/100 WBC Auto (Bl d)on 06-29-2024 Eosinophils/100 WBC (Bld) Automated eosinophil % 0.9-7.0 [facility] Erythrocyte distribution wid th Auto (RBC) [Ratio]on 06-29-2024 Erythrocyte distribution width (RBC) [Ratio] Erythrocyte distribution width [Ratio] by Automated count High 11.0-15.0 [facility] Hematocrit Auto (Bld) [Volum e fraction]on 06-29-2024 Hematocrit (Bld) [Volume fraction] Hematocrit [Volume Fraction] of Blood by Automated count 36.0-48.0 [facility] Hemoglobin [Mass/volume] in Bloodon 06-29-2024 Hemoglobin (Bld) [Mass/Vol] Hemoglobin [Mass/volume] in Blood 12.0-16.0 [facility] IgA [Mass/volume] in Serum o r Plasmaon 06-29-2024 IgA [Mass/Vol] IgA [Mass/volume] in Serum or Plasma 87-352 [facility] IgG [Mass/volume] in Serum o r Plasmaon 06-29-2024 IgG [Mass/Vol] IgG [Mass/volume] in Serum or Plasma 586-1602 [facility] IgM [Mass/volume] in Serum o r Plasmaon 06-29-2024 IgM [Mass/Vol] IgM [Mass/volume] in Serum or Plasma 26-217 [facility] Iron binding capacity [Mass/ volume] in Serum or Plasmaon 06-29-2024 Iron binding capacity [Mass/Vol] Iron binding capacity [Mass/volume] in Serum or Plasma 250.0-450. 0 [facility] Iron saturation [Mass Fracti on] in Serum or Plasmaon 06-29-2024 Iron saturation [Mass fraction] Iron saturation [Mass Fraction] in Serum or Plasma [facility] Laboratory - Chemistry and C hemistry - challengeon 06-29-2024 Cobalamin (Vitamin B12) [Mass/Vol] 647 pg/mL 232-1245 [facility] Comment on above: Performed at: [address] [id number] Director: Cassius Zhong PhD, Phone: [phone] Ferritin [Mass/Vol] 43.0 ng/mL 8.0-252.0 [facility] Iron [Mass/Vol] 50.0 ug/dL 50.0-170.0 [facility] LDH [Catalytic activity/Vol] 202 U/L 81-234 [facility] Laboratory - Hematology and Cell countson 06-29-2024 ESR (Bld) [Velocity] 41 mm/h High <=20 [facility] Immature granulocytes/100 WBC (Bld) 0.3 % 0.0-0.5 [facility] Leukocytes [#/volume] correc carmelita for nucleated erythrocytes in Blood by Automated counon 06-29-2024 WBC corrected for nucl RBC Auto (Bld) [#/Vol] Leukocytes [#/volume] corrected for nucleated erythrocytes in Blood by Automated coun High 4.0-11.0 [facility] Lymphocytes Auto (Bld) [#/Vo l]on 06-29-2024 Lymphocytes (Bld) [#/Vol] Lymphocytes [#/volume] in Blood by Automated count 1.2-3.8 [facility] Lymphocytes/100 WBC Auto (Bl d)on 06-29-2024 Lymphocytes/100 WBC (Bld) Lymphocytes/100 leukocytes in Blood by Automated count 20.5-60.0 [facility] MCH Auto (RBC) [Entitic mass ]on 06-29-2024 MCH (RBC) [Entitic mass] MCH [Entitic mass] by Automated count 26.7-34.0 [facility] MCHC Auto (RBC) [Mass/Vol]on 06-29-2024 MCHC (RBC) [Mass/Vol] MCHC [Mass/volume] by Automated count 29.9-35.2 [facility] MCV Auto (RBC) [Entitic vol] on 06-29-2024 MCV (RBC) [Entitic vol] MCV [Entitic vol ume] by Automated count 81.0-99.0 [facility] Monocytes Auto (Bld) [#/Vol] on 06-29-2024 Monocytes (Bld) [#/Vol] Automated blood monocyte count 0.3-0.8 [facility] Monocytes/100 WBC Auto (Bld) on 06-29-2024 Monocytes/100 WBC (Bld) Automated monocyte % 1. 7-12.0 [facility] Neutrophils Auto (Bld) [#/Vo l]on 06-29-2024 Neutrophils (Bld) [#/Vol] Neutrophils [#/volume] in Blood by Automated count High 1.4-6.5 [facility] Neutrophils/100 WBC Auto (Bl d)on 06-29-2024 Neutrophils/100 WBC (Bld) Automated neutrophil % 43.0-75.0 [facility] No Panel Informationon 06-29 C-Reactive Protein, Quantitative 0.74 mg/dL High <=0.50 [facility] Eosinophils # (Auto) 0.2 10 3/uL 0.0-0.7 [facility] Immature Granulocyte # (Auto) 0.03 10 3/uL 0.00-0.03 [facility] Protein Electrophoresis M-Manpreet Not Observed g/dL Not Observed [facility] Protein Electrophoresis Note Comment . [facility] Comment on above: Protein electrophore sis scan will follow via computer,mail, or manager agency delivery.Performed at: [employer] [address] [id number] Director: Cassius Zhong PhD, Phone: [phone] Platelet mean volume Auto (B ld) [Entitic vol]on 06-29-2024 Platelet mean volume (Bld) [Entitic vol] Platelet mean volume [Entitic volume] in Blood by Automated count 9.5-13.5 [facility] Platelets Auto (Bld) [#/Vol] on 06-29-2024 Platelets (Bld) [#/Vol] Platelets [#/vol ume] in Blood by Automated count 150-450 [facility] Protein [Mass/volume] in Ser um or Plasmaon 06-29-2024 Protein [Mass/Vol] Protein [Mass/volume ] in Serum or Plasma 6.0-8.5 [facility] RBC Auto (Bld) [#/Vol]on RBC (Bld) [#/Vol] Erythrocytes [#/volu me] in Blood by Automated count 4.20-5.40 [facility] Serum globulin measurement ( mass/volume)on 06-29-2024 Globulin (S) [Mass/Vol] Serum globulin measurement (mass/volume) 2.2-3.9 [facility] Serum or plasma albumin/glob ulin mass ratioon 06-29-2024 Albumin/Globulin [Mass ratio] Serum or plasma albumin/globulin mass ratio 0.7-1.7 [facility] Serum or plasma alpha 1 glob ulin measurement by electrophoresis (mass/volume)on 06-29-2024 Alpha 1 globulin Elph [Mass/Vol] Serum or plasma alpha 1 globulin measurement by electrophoresis (mass/volume) 0.0-0.4 [facility] Serum or plasma alpha 2 glob ulin measurement by electrophoresis (mass/volume)on 06-29-2024 Alpha 2 globulin Elph [Mass/Vol] Serum or plasma alpha 2 globulin measurement by electrophoresis (mass/volume) 0.4-1.0 [facility] Serum or plasma beta globuli n measurement by electrophoresis (mass/volume)on 06-29-2024 Beta globulin Elph [Mass/Vol] Serum or plasma beta globulin measurement by electrophoresis (mass/volume) 0.7-1.3 [facility] Serum or plasma gamma globul in measurement by electrophoresis (mass/volume)on 06-29-2024 Gamma globulin Elph [Mass/Vol] Serum or plasma gamma globulin measurement by electrophoresis (mass/volume) 0.4-1.8 [facility] Serum or plasma immunoelectr ophoresis interpretationon 06-29-2024 Interpretation IEP [Interp] Serum or plasma immunoelectrophoresis interpretation . [facility] Comment on above: No monoclonality det ected. Laboratory - Chemistry and C hemistry - challengeon 06-25-2024 Bilirubin Ql (U) 0 [facility] Glucose (U) [Mass/Vol] 0 mg/dL [facility] Ketones Ql (U) 0 [facility] pH (U) 5.0 [pH] [facility] Specific gravity (U) [Rel density] 1.020 [facility] Urobilinogen (U) [Mass/Vol] 0.2 mg/dL [facility] Laboratory - Specimen inform ationon 06-25-2024 Appearance (U) cloudy [facility] Color (U) yellow [facility] Laboratory - Urinalysison Leukocyte esterase Test strip Ql (U) 0 [facility] Nitrite Ql (U) Negative [facility] Protein Ql (U) Trace [facility] No Panel Informationon 06-25 Urine Occult Blood 0 [facility] Urine Cultureon 06-25-2024 Bacteria identified Cx Nom (U) 30,000 colonies/ml mixed bacterial skin contaminants 2 Days PERFORMED BY: [address] [place] [address] PATHOLOGIST PROFESSOR OF COUNSELING NESHA MAIER M.D. Normal [facility] Comment on above: Performed By: #### C UU #### [facility] [address] [place] [address] Urine cultureOrdered By: Keesha Marc on 06-25-2024 Bacteria identified Cx Nom (U) Urine culture [facility] Basophils Auto (Bld) [#/Vol] on 06-15-2024 Basophils (Bld) [#/Vol] 0.1 10 3/uL 0.0-0.1 [facility] Basophils (Bld) [#/Vol] Automated basoph il count 0.0-0.1 [facility] Basophils/100 WBC Auto (Bld) on 06-15-2024 Basophils/100 WBC (Bld) 0.7 % 0.2-2.0 [facility] Basophils/100 WBC (Bld) Automated basophil % 0. 2-2.0 [facility] Chlamydia trachomatis DNA [P resence] in Specimen by SURI with probe detectionOrdered By: Casandra Hassan on 06-15-2024 C. trachomatis DNA SURI+probe Ql (Unsp spec) Negative Negative [facility] C. trachomatis DNA SURI+probe Ql (Unsp spec) Chlamydia trachomatis DNA [Presence] in Specimen by SURI with probe detection Negative [facility] Chlamydia/GC/Trich NAAon Chlamydia Trachomotis, SURI Negative Normal Negative [facility] Comment on above: Performed By: #### C UU #### [facility] [address] [place] [address] [place] #### [id number] #### [facility] , Neisseria Gonorrhoeae, SURI Negative Normal Negative [facility] Comment on above: Performed By: #### C UU #### [facility] [address] [place] [address] [place] #### [id number] #### [facility] , Trichomonas SURI Negative Normal Negative [facility] Comment on above: Result Comment: Perf ormed at: =G - [facility] [address] [id number] Sales Support Coordinator: Monse Cardona MD, Phone: [phone] PERFORMED BY: [place] [address] PATHOLOGIST PROFESSOR OF COUNSELING NESHA MAIER M.D. Performed By: #### C UU #### [address] #### GCCHLAMTRI #### [facility] , Eosinophils/100 WBC Auto (Bl d)on 06-15-2024 Eosinophils/100 WBC (Bld) 1.1 % 0.9-7.0 [facility] Eosinophils/100 WBC (Bld) Automated eosinophil % 0.9-7.0 [facility] Erythrocyte distribution wid th Auto (RBC) [Ratio]on 06-15-2024 Erythrocyte distribution width (RBC) [Ratio] 16.4 % High 11.0-15.0 [facility] Erythrocyte distribution width (RBC) [Ratio] Erythrocyte distribution width [Ratio] by Automated count High 11.0-15.0 [facility] Estimated glomerular filtrat ion rate (GFR) non- Americanon 06-15-2024 GFR/1.73 sq M.predicted among non-blacks MDRD (S/P/Bld) [Vol rate/Area] mL/min/{1.73_m2} >=60 mL/min/1.7 3m 2 [facility] GFR/1.73 sq M.predicted among non-blacks MDRD (S/P/Bld) [Vol rate/Area] Estimated glomerular filtration rate (GFR) non- >=60 mL/min/1.7 3m 2 [facility] Globulin Calc (S) [Mass/Vol] on 06-15-2024 Globulin (S) [Mass/Vol] 4.1 g/dL [facility] Globulin (S) [Mass/Vol] Serum globulin measurement by calculation (mass/volume) [facility] HCG ( test) IA.rapi d Ql (U)on 06-15-2024 HCG ( test) Ql (U) Negative NEGATIVE [facility] HCG ( test) Ql (U) Urine human chorionic gonadotropin (hCG) detection by immunoassay NEGATIVE [facility] Hematocrit Auto (Bld) [Volum e fraction]on 06-15-2024 Hematocrit (Bld) [Volume fraction] 42.5 % 36.0-48.0 [facility] Hematocrit (Bld) [Volume fraction] Hematocrit [Volume Fraction] of Blood by Automated count 36.0-48.0 [facility] Hemoglobin [Mass/volume] in Bloodon 06-15-2024 Hemoglobin (Bld) [Mass/Vol] 13.6 g/dL 12.0-16.0 [facility] Hemoglobin (Bld) [Mass/Vol] Hemoglobin [Mass/volume] in Blood 12.0-16.0 [facility] Laboratory - Chemistry and C hemistry - challengeon 06-15-2024 Bilirubin Ql (U) Negative NEGATIVE [facility] Glucose (U) [Mass/Vol] Negative NEGATIVE [facility] Ketones Ql (U) Negative NEGATIVE [facility] pH (U) 6.0 [pH] 5.0-9.0 [facility] Specific gravity (U) [Rel density] 1.025 1.005-1.02 5 [facility] Urobilinogen Qn (U) 0.2 {Tamiko'U}/dL 0.2-1.0 [facility] Albumin [Mass/Vol] 3.6 g/dL 3.4-5.0 [facility] ALP [Catalytic activity/Vol] 76 U/L 46-116 [facility] ALT [Catalytic activity/Vol] 46 U/L 14-59 [facility] AST [Catalytic activity/Vol] 29 U/L 15-37 [facility] Bilirubin [Mass/Vol] 0.4 mg/dL 0.2-1.0 [facility] Calcium [Mass/Vol] 9.5 mg/dL 8.5-10.1 [facility] Chloride [Moles/Vol] 103 mmol/L 98-107 [facility] CO2 [Moles/Vol] 26.4 mmol/L 21.0-32.0 [facility] Creatinine [Mass/Vol] 0.83 mg/dL 0.55-1.02 [facility] GFR/1.73 sq M.predicted MDRD (S/P/Bld) [Vol rate/Area] mL/min/{1.73_m2} >=60 mL/min/1.7 3m 2 [facility] Glucose [Mass/Vol] 102 mg/dL 74-106 [facility] Lactate [Moles/Vol] 1.9 mmol/L 0.4-2.0 [facility] Lipase [Catalytic activity/Vol] 32.0 U/L 16.0-77.0 [facility] Potassium [Moles/Vol] 3.9 mmol/L 3.5-5.1 [facility] Protein [Mass/Vol] 7.7 g/dL 6.4-8.2 [facility] Sodium [Moles/Vol] 139 mmol/L 136-145 [facility] Urea nitrogen [Mass/Vol] 9.0 mg/dL 7.0-18.0 [facility] Urea nitrogen/Creatinine [Mass ratio] 10.8 mg/mg [facility] Laboratory - Hematology and Cell countson 06-15-2024 Immature granulocytes/100 WBC (Bld) 0.2 % 0.0-0.5 [facility] Laboratory - Microbiology an d Antimicrobial susceptibilityOrdered By: Casandra Hassan on 06-15-2024 Bacteria identified Cx Nom (U) Escherichia coli (ESBL) Abnormal [facility] Laboratory - Specimen inform ationon 06-15-2024 Appearance (U) CLEAR CLEAR [facility] Color (U) LT. YELLOW YELLOW [facility] Laboratory - Urinalysison Leukocyte esterase Test strip Ql (U) TRACE Abnormal NEGATIVE [facility] Mucus Ql (Urine sed) TRACE Abnormal NONE SEEN [facility] Nitrite Ql (U) Positive Abnormal NEGATIVE [facility] Protein Ql (U) >=300 mg/dL Abnormal NEG/TRACE [facility] Leukocytes [#/volume] correc carmelita for nucleated erythrocytes in Blood by Automated counon 06-15-2024 WBC corrected for nucl RBC Auto (Bld) [#/Vol] 12.7 10 3/uL High 4.0-11.0 [facility] WBC corrected for nucl RBC Auto (Bld) [#/Vol] Leukocytes [#/volume] corrected for nucleated erythrocytes in Blood by Automated coun High 4.0-11.0 [facility] Lymphocytes Auto (Bld) [#/Vo l]on 06-15-2024 Lymphocytes (Bld) [#/Vol] 2.9 10 3/uL 1.2-3.8 [facility] Lymphocytes (Bld) [#/Vol] Lymphocytes [#/volume] in Blood by Automated count 1.2-3.8 [facility] Lymphocytes/100 WBC Auto (Bl d)on 06-15-2024 Lymphocytes/100 WBC (Bld) 23.0 % 20.5-60.0 [facility] Lymphocytes/100 WBC (Bld) Lymphocytes/100 leukocytes in Blood by Automated count 20.5-60.0 [facility] MCH Auto (RBC) [Entitic mass ]on 06-15-2024 MCH (RBC) [Entitic mass] 26.7 pg 26.7-34.0 [facility] MCH (RBC) [Entitic mass] MCH [Entitic mass] by Automated count 26.7-34.0 [facility] MCHC Auto (RBC) [Mass/Vol]on 06-15-2024 MCHC (RBC) [Mass/Vol] 32.0 g/dL 29.9-35.2 [facility] MCHC (RBC) [Mass/Vol] MCHC [Mass/volume] by Automated count 29.9-35.2 [facility] MCV Auto (RBC) [Entitic vol] on 06-15-2024 MCV (RBC) [Entitic vol] 83.5 fL 81.0-99.0 [facility] MCV (RBC) [Entitic vol] MCV [Entitic vol ume] by Automated count 81.0-99.0 [facility] Monocytes Auto (Bld) [#/Vol] on 06-15-2024 Monocytes (Bld) [#/Vol] 0.6 10 3/uL 0.3-0.8 [facility] Monocytes (Bld) [#/Vol] Automated blood monocyte count 0.3-0.8 [facility] Monocytes/100 WBC Auto (Bld) on 06-15-2024 Monocytes/100 WBC (Bld) 4.9 % 1.7-12.0 [facility] Monocytes/100 WBC (Bld) Automated monocyte % 1. 7-12.0 [facility] Neisseria gonorrhoeae DNA [P resence] in Specimen by SURI with probe detectionOrdered By: Casandra Hassan on 06-15-2024 N. gonorrhoeae DNA SURI+probe Ql (Unsp spec) Negative Negative [facility] N. gonorrhoeae DNA SURI+probe Ql (Unsp spec) Neisseria gonorrhoeae DNA [Presence] in Specimen by SURI with probe detection Negative [facility] Neutrophils Auto (Bld) [#/Vo l]on 06-15-2024 Neutrophils (Bld) [#/Vol] 8.9 10 3/uL High 1.4-6.5 [facility] Neutrophils (Bld) [#/Vol] Neutrophils [#/volume] in Blood by Automated count High 1.4-6.5 [facility] Neutrophils/100 WBC Auto (Bl d)on 06-15-2024 Neutrophils/100 WBC (Bld) 70.1 % 43.0-75.0 [facility] Neutrophils/100 WBC (Bld) Automated neutrophil % 43.0-75.0 [facility] No Panel Informationon 06-15 Miscellaneous Test Comment See comment [facility] Comment on above: Specimen Source: UCC - Urine,Clean Catch - Urine CC - 200.100 Urine Bacteria SMALL #/HPF Abnormal NONE SEEN [facility] Urine Culture Reflexed YES [facility] Urine Culture Result 1 \R\ Urine Culture , Routine\R\ Organism: Gram negative jus : [facility] Urine Microscopic Review YES [facility] Urine Occult Blood MODERATE Abnormal NEGATIVE [facility] Urine Other Casts NONE SEEN #/LPF NONE SEEN [facility] Urine Other Crystals None Seen #/HPF None Seen [facility] Urine RBC 10-20 #/HPF Abnormal 0-2 [facility] Urine Squamous Epithelial Cells FEW #/LPF Abnormal NONE/RARE [facility] Urine WBC 20-50 #/HPF Abnormal NONE SEEN [facility] Eosinophils # (Auto) 0.1 10 3/uL 0.0-0.7 [facility] Immature Granulocyte # (Auto) 0.03 10 3/uL 0.00-0.03 [facility] Platelet mean volume Auto (B ld) [Entitic vol]on 06-15-2024 Platelet mean volume (Bld) [Entitic vol] 10.0 fL 9.5-13.5 [facility] Platelet mean volume (Bld) [Entitic vol] Platelet mean volume [Entitic volume] in Blood by Automated count 9.5-13.5 [facility] Platelets Auto (Bld) [#/Vol] on 06-15-2024 Platelets (Bld) [#/Vol] 308 10 3/uL 150-450 [facility] Platelets (Bld) [#/Vol] Platelets [#/vol ume] in Blood by Automated count 150-450 [facility] RBC Auto (Bld) [#/Vol]on RBC (Bld) [#/Vol] 5.09 10 6/uL 4.20-5.40 [facility] RBC (Bld) [#/Vol] Erythrocytes [#/volu me] in Blood by Automated count 4.20-5.40 [facility] Serum or plasma albumin/glob ulin mass ratioon 06-15-2024 Albumin/Globulin [Mass ratio] 0.9 {ratio} [facility] Albumin/Globulin [Mass ratio] Serum or plasma albumin/globulin mass ratio [facility] Serum or plasma anion gap de terminationon 06-15-2024 Anion gap [Moles/Vol] 13.5 mmol/[facility] Anion gap [Moles/Vol] Serum or plasma an ion gap determination [facility] Trichomonas vaginalis DNA [P resence] in Specimen by SURI with probe detectionOrdered By: Casandra Hassan on 06-15-2024 T. vaginalis DNA SURI+probe Ql (Unsp spec) Negative Negative [facility] Comment on above: Performed at: =G - [address] [id number] Director: Monse Cardona MD, Phone: [phone] T. vaginalis DNA SURI+probe Ql (Unsp spec) Trichomonas vaginalis DNA [Presence] in Specimen by SURI with probe detection Negative [facility] Comment on above: Performed at: =[address] [id number] Director: Monse Cardona MD, Phone: [phone] Urine Cultureon 06-15-2024 Bacteria identified Cx Nom (U) ORGANISM: Escherichia coli (ESBL) (O:ESCCOLESBL) [place] Count >100,000 Aerobic RENATE Charge ([id number]) -- SUSCEPTIBILITY - ORGANISM: O:ESCCOLESBL ANTIBIOTIC INTERPRETATION RENATE Amikacin S <16 Amoxacillin/K Clavulanate S <8 Ampicillin R* >16 Ampicillin/Sulbactam S 88/4 Aztreonam ESBL 16 Cefazolin R* >16 Cefepime R* 16 Ceftazidime ESBL 4 Ceftazidime/Avibactam S <4 Ceftolozane/Tazobactam S <2 Ceftriaxone ESBL >32 Cefuroxime R* >16 Ciprofloxacin S <0.25 Ertapenem S <0.5 Gentamicin S <2 Levofloxacin S <0.5 Meropenem S <1 Meropenem/Vaborbactam S <2 Nitrofurantoin S <32 Piperacillin/Tazobactam S <8 Tetracycline R >8 Tigecycline S <2 Tobramycin S <2 Trimethoprim/Sulfametho xazole R >2 S = SUSCEPTIBLE I = [...] RESISTANT TO ALL B-LACTAM DRUGS. PERFORMED BY: [facility] [address] [place] [address] PATHOLOGIST PROFESSOR OF COUNSELING NESHA MAIER M.D. Normal [facility] Comment on above: Performed By: #### C UU #### [facility] [address] #### [id number] #### [facility] , Urine cultureOrdered By: Eulalio Hassan on 06-15-2024 Bacteria identified Cx Nom (U) Abnormal [facility] Iron binding capacity [Mass/ volume] in Serum or Plasmaon 06-07-2024 Iron binding capacity [Mass/Vol] 411.0 ug/dL 250.0-450. 0 [facility] Iron binding capacity [Mass/Vol] Iron binding capacity [Mass/volume] in Serum or Plasma 250.0-450. 0 [facility] Iron saturation [Mass Fracti on] in Serum or Plasmaon 06-07-2024 Iron saturation [Mass fraction] 13.4 % [facility] Iron saturation [Mass fraction] Iron saturation [Mass Fraction] in Serum or Plasma [facility] Laboratory - Chemistry and C hemistry - challengeon 06-07-2024 Iron [Mass/Vol] 55.0 ug/dL 50.0-170.0 [facility] Iron binding capacity [Mass/ volume] in Serum or Plasmaon 04-21-2024 Iron binding capacity [Mass/Vol] 495.0 ug/dL High 250.0-450. 0 [facility] Iron binding capacity [Mass/Vol] Iron binding capacity [Mass/volume] in Serum or Plasma High 250.0-450. 0 [facility] Iron saturation [Mass Fracti on] in Serum or Plasmaon 04-21-2024 Iron saturation [Mass fraction] 15.4 % [facility] Iron saturation [Mass fraction] Iron saturation [Mass Fraction] in Serum or Plasma [facility] Laboratory - Chemistry and C hemistry - challengeon 04-21-2024 Cobalamin (Vitamin B12) [Mass/Vol] 815 pg/mL 232-1245 [facility] Comment on above: Performed at: [address] [id number] Director: Cassius Zhong PhD, Phone: [phone] Iron [Mass/Vol] 76.0 ug/dL 50.0-170.0 [facility] TSH Qn 2.211 m[IU]/L 0.358-3.74 0 [facility] Basophils Auto (Bld) [#/Vol] on 04-12-2024 Basophils (Bld) [#/Vol] 0.1 10 3/uL 0.0-0.1 [facility] Basophils (Bld) [#/Vol] Automated basoph il count 0.0-0.1 [facility] Basophils/100 WBC Auto (Bld) on 04-12-2024 Basophils/100 WBC (Bld) 0.6 % 0.2-2.0 [facility] Basophils/100 WBC (Bld) Automated basophil % 0. 2-2.0 [facility] Buprenorphine [Presence] in Urineon 04-12-2024 Buprenorphine Ql (U) Negative NEGATIVE [facility] Comment on above: DRUG CLASS TEST SYST EM CUT-OFF CONCENTRATIONS ARE ASFOLLOWS:AMP (Amphetamine): 500 ng/mLBAR (Barbiturates): 200 ng/mLBZO (Benzodiazepines): 150 ng/mLBUP (Buprenorphine): 10 ng/mLCOC (Cocaine): 150 ng/mLmAMP (Methamphetamine): 500 ng/mLMTD (Methadone): 200 ng/mLOPI (Opiates): 100 ng/mLOXY (Oxycodone): 100 ng/mLPCP (Phencyclidine): 25 ng/mLTHC (Cannabinoids): 50 ng/mLTCA (Trycyclic Antidepressants): 300 ng/mL Buprenorphine Ql (U) Buprenorphine [Presence] in Urine NEGATIVE [facility] Comment on above: DRUG CLASS TEST SYST EM CUT-OFF CONCENTRATIONS ARE ASFOLLOWS:AMP (Amphetamine): 500 ng/mLBAR (Barbiturates): 200 ng/mLBZO (Benzodiazepines): 150 ng/mLBUP (Buprenorphine): 10 ng/mLCOC (Cocaine): 150 ng/mLmAMP (Methamphetamine): 500 ng/mLMTD (Methadone): 200 ng/mLOPI (Opiates): 100 ng/mLOXY (Oxycodone): 100 ng/mLPCP (Phencyclidine): 25 ng/mLTHC (Cannabinoids): 50 ng/mLTCA (Trycyclic Antidepressants): 300 ng/mL Eosinophils/100 WBC Auto (Bl d)on 04-12-2024 Eosinophils/100 WBC (Bld) 1.0 % 0.9-7.0 [facility] Eosinophils/100 WBC (Bld) Automated eosinophil % 0.9-7.0 [facility] Erythrocyte distribution wid th Auto (RBC) [Ratio]on 04-12-2024 Erythrocyte distribution width (RBC) [Ratio] 17.4 % High 11.0-15.0 [facility] Erythrocyte distribution width (RBC) [Ratio] Erythrocyte distribution width [Ratio] by Automated count High 11.0-15.0 [facility] Estimated glomerular filtrat ion rate (GFR) non- Americanon 04-12-2024 GFR/1.73 sq M.predicted among non-blacks MDRD (S/P/Bld) [Vol rate/Area] mL/min/{1.73_m2} >=60 [facility] GFR/1.73 sq M.predicted among non-blacks MDRD (S/P/Bld) [Vol rate/Area] Estimated glomerular filtration rate (GFR) non- >=60 [facility] Globulin Calc (S) [Mass/Vol] on 04-12-2024 Globulin (S) [Mass/Vol] 4.1 g/dL [facility] Globulin (S) [Mass/Vol] Serum globulin measurement by calculation (mass/volume) [facility] HCG ( test) Bello d Ql (U)on 04-12-2024 HCG ( test) Ql (U) Negative NEGATIVE [facility] HCG ( test) Ql (U) Urine human chorionic gonadotropin (hCG) detection by immunoassay NEGATIVE [facility] Hematocrit Auto (Bld) [Volum e fraction]on 04-12-2024 Hematocrit (Bld) [Volume fraction] 37.9 % 36.0-48.0 [facility] Hematocrit (Bld) [Volume fraction] Hematocrit [Volume Fraction] of Blood by Automated count 36.0-48.0 [facility] Hemoglobin [Mass/volume] in Bloodon 04-12-2024 Hemoglobin (Bld) [Mass/Vol] 11.6 g/dL Low 12.0-16.0 [facility] Hemoglobin (Bld) [Mass/Vol] Hemoglobin [Mass/volume] in Blood Low 12.0-16.0 [facility] Laboratory - Chemistry and C hemistry - challengeon 04-12-2024 Albumin [Mass/Vol] 3.3 g/dL Low 3.4-5.0 [facility] ALP [Catalytic activity/Vol] 75 U/L 46-116 [facility] ALT [Catalytic activity/Vol] 36 U/L 14-59 [facility] AST [Catalytic activity/Vol] 19 U/L 15-37 [facility] Bilirubin [Mass/Vol] 0.3 mg/dL 0.2-1.0 [facility] Calcium [Mass/Vol] 8.6 mg/dL 8.5-10.1 [facility] Chloride [Moles/Vol] 101 mmol/L 98-107 [facility] CO2 [Moles/Vol] 28.7 mmol/L 21.0-32.0 [facility] Creatinine [Mass/Vol] 0.70 mg/dL 0.55-1.02 [facility] GFR/1.73 sq M.predicted MDRD (S/P/Bld) [Vol rate/Area] mL/min/{1.73_m2} >=60 [facility] Glucose [Mass/Vol] 103 mg/dL 74-106 [facility] Potassium [Moles/Vol] 3.7 mmol/L 3.5-5.1 [facility] Protein [Mass/Vol] 7.4 g/dL 6.4-8.2 [facility] Sodium [Moles/Vol] 136 mmol/L 136-145 [facility] Urea nitrogen [Mass/Vol] 10.0 mg/dL 7.0-18.0 [facility] Urea nitrogen/Creatinine [Mass ratio] 14.3 mg/mg [facility] Bilirubin Ql (U) Negative NEGATIVE [facility] Glucose (U) [Mass/Vol] Negative NEGATIVE [facility] Ketones Ql (U) Negative NEGATIVE [facility] pH (U) 6.0 [pH] 5.0-9.0 [facility] Specific gravity (U) [Rel density] >=1.030 Abnormal 1.005-1.02 5 [facility] Urobilinogen Qn (U) 0.2 {Tamiko'U}/dL 0.2-1.0 [facility] Laboratory - Drug toxicology on 04-12-2024 Amphetamines Ql (U) Negative NEGATIVE [facility] Benzodiazepines Ql (U) Negative NEGATIVE [facility] Cocaine Ql (U) Negative NEGATIVE [facility] Opiates Ql (U) Negative NEGATIVE [facility] Phencyclidine Ql (U) Negative NEGATIVE [facility] Laboratory - Hematology and Cell countson 04-12-2024 Immature granulocytes/100 WBC (Bld) 0.3 % 0.0-0.5 [facility] Laboratory - Specimen inform ationon 04-12-2024 Appearance (U) CLEAR CLEAR [facility] Color (U) YELLOW YELLOW [facility] Laboratory - Urinalysison Leukocyte esterase Test strip Ql (U) Negative NEGATIVE [facility] Mucus Ql (Urine sed) TRACE Abnormal NONE SEEN [facility] Nitrite Ql (U) Negative NEGATIVE [facility] Protein Ql (U) Negative NEG/TRACE [facility] Leukocytes [#/volume] correc carmelita for nucleated erythrocytes in Blood by Automated counon 04-12-2024 WBC corrected for nucl RBC Auto (Bld) [#/Vol] 9.9 10 3/uL 4.0-11.0 [facility] WBC corrected for nucl RBC Auto (Bld) [#/Vol] Leukocytes [#/volume] corrected for nucleated erythrocytes in Blood by Automated coun 4.0-11.0 [facility] Lymphocytes Auto (Bld) [#/Vo l]on 04-12-2024 Lymphocytes (Bld) [#/Vol] 3.5 10 3/uL 1.2-3.8 [facility] Lymphocytes (Bld) [#/Vol] Lymphocytes [#/volume] in Blood by Automated count 1.2-3.8 [facility] Lymphocytes/100 WBC Auto (Bl d)on 04-12-2024 Lymphocytes/100 WBC (Bld) 35.5 % 20.5-60.0 [facility] Lymphocytes/100 WBC (Bld) Lymphocytes/100 leukocytes in Blood by Automated count 20.5-60.0 [facility] MCH Auto (RBC) [Entitic mass ]on 04-12-2024 MCH (RBC) [Entitic mass] 24.5 pg Low 26.7-34.0 [facility] MCH (RBC) [Entitic mass] MCH [Entitic mass] by Automated count Low 26.7-34.0 [facility] MCHC Auto (RBC) [Mass/Vol]on 04-12-2024 MCHC (RBC) [Mass/Vol] 30.6 g/dL 29.9-35.2 [facility] MCHC (RBC) [Mass/Vol] MCHC [Mass/volume] by Automated count 29.9-35.2 [facility] MCV Auto (RBC) [Entitic vol] on 04-12-2024 MCV (RBC) [Entitic vol] 80.1 fL Low 81.0-99.0 [facility] MCV (RBC) [Entitic vol] MCV [Entitic vol ume] by Automated count Low 81.0-99.0 [facility] Methadone [Presence] in Urin e by Screen methodon 04-12-2024 Methadone Screen Ql (U) Negative NEGATIVE [facility] Methadone Screen Ql (U) Methadone [Prese nce] in Urine by Screen method NEGATIVE [facility] Monocytes Auto (Bld) [#/Vol] on 04-12-2024 Monocytes (Bld) [#/Vol] 0.5 10 3/uL 0.3-0.8 [facility] Monocytes (Bld) [#/Vol] Automated blood monocyte count 0.3-0.8 [facility] Monocytes/100 WBC Auto (Bld) on 04-12-2024 Monocytes/100 WBC (Bld) 4.7 % 1.7-12.0 [facility] Monocytes/100 WBC (Bld) Automated monocyte % 1. 7-12.0 [facility] Neutrophils Auto (Bld) [#/Vo l]on 04-12-2024 Neutrophils (Bld) [#/Vol] 5.7 10 3/uL 1.4-6.5 [facility] Neutrophils (Bld) [#/Vol] Neutrophils [#/volume] in Blood by Automated count 1.4-6.5 [facility] Neutrophils/100 WBC Auto (Bl d)on 04-12-2024 Neutrophils/100 WBC (Bld) 57.9 % 43.0-75.0 [facility] Neutrophils/100 WBC (Bld) Automated neutrophil % 43.0-75.0 [facility] No Panel Informationon 04-12 Acetaminophen Level <2.0 ug/mL Low 10.0-30.0 [facility] Eosinophils # (Auto) 0.1 10 3/uL 0.0-0.7 [facility] Ethyl Alcohol Level <3 mg/dL [facility] Comment on above: NOTE: 80 mg/dl is th e legal limit for a blood alcohol level Immature Granulocyte # (Auto) 0.03 10 3/uL 0.00-0.03 [facility] Salicylates Level <2.8 mg/dL <=19.9 [facility] Urine Bacteria SMALL #/HPF Abnormal NONE SEEN [facility] Urine Barbiturates Screen Negative NEGATIVE [facility] Urine Culture Reflexed YES [facility] Urine Marijuana (THC) Screen Negative NEGATIVE [facility] Urine Methamphetamines Screen Negative NEGATIVE [facility] Urine Occult Blood Negative NEGATIVE [facility] Urine Other Casts NONE SEEN #/LPF NONE SEEN [facility] Urine Other Crystals None Seen #/HPF None Seen [facility] Urine RBC 0-2 #/HPF 0-2 [facility] Urine Squamous Epithelial Cells FEW #/LPF Abnormal NONE/RARE [facility] Urine Transitional Epithelial Cells RARE #/LPF Abnormal NONE SEEN [facility] Urine WBC 2-5 #/HPF Abnormal NONE SEEN [facility] Platelet mean volume Auto (B ld) [Entitic vol]on 04-12-2024 Platelet mean volume (Bld) [Entitic vol] 10.2 fL 9.5-13.5 [facility] Platelet mean volume (Bld) [Entitic vol] Platelet mean volume [Entitic volume] in Blood by Automated count 9.5-13. [facility] Platelets Auto (Bld) [#/Vol] on 04-12-2024 Platelets (Bld) [#/Vol] 299 10 3/uL 150-450 [facility] Platelets (Bld) [#/Vol] Platelets [#/vol ume] in Blood by Automated count 150-450 [facility] RBC Auto (Bld) [#/Vol]on RBC (Bld) [#/Vol] 4.73 10 6/uL 4.20-5.40 [facility] RBC (Bld) [#/Vol] Erythrocytes [#/volu me] in Blood by Automated count 4.20-5.40 [facility] Serum or plasma albumin/glob ulin mass ratioon 04-12-2024 Albumin/Globulin [Mass ratio] 0.8 {ratio} [facility] Albumin/Globulin [Mass ratio] Serum or plasma albumin/globulin mass ratio [facility] Serum or plasma anion gap de terminationon 04-12-2024 Anion gap [Moles/Vol] 10.0 mmol/L [facility] Anion gap [Moles/Vol] Serum or plasma an ion gap determination [facility] Urine tricyclic antidepressa nt measurementon 04-12-2024 Tricyclic antidepressants (U) [Mass/Vol] Negative NEGATIVE [facility] Tricyclic antidepressants (U) [Mass/Vol] Urine tricyclic antidepressant measurement NEGATIVE [facility] oxyCODONE+oxyMORphone [Prese nce] in Urine by Screen methodon 04-12-2024 oxyCODONE+oxyMORphone Screen Ql (U) Negative NEGATIVE [facility] oxyCODONE+oxyMORphone Screen Ql (U) oxyCODONE+oxyMORphone [Presence] in Urine by Screen method NEGATIVE [facility] Basophils Auto (Bld) [#/Vol] on 11-03-2023 Basophils (Bld) [#/Vol] 0.0 10 3/uL 0.0-0.1 [facility] Basophils/100 WBC Auto (Bld) on 11-03-2023 Basophils/100 WBC (Bld) 0.5 % 0.2-2.0 [facility] Eosinophils/100 WBC Auto (Bl d)on 11-03-2023 Eosinophils/100 WBC (Bld) 1.4 % 0.9-7.0 [facility] Erythrocyte distribution wid th Auto (RBC) [Ratio]on 11-03-2023 Erythrocyte distribution width (RBC) [Ratio] 16.3 % 11.0-15.0 [facility] Estimated glomerular filtrat ion rate (GFR) non- Americanon 11-03-2023 GFR/1.73 sq M.predicted among non-blacks MDRD (S/P/Bld) [Vol rate/Area] mL/min/{1.73_m2} >=60 [facility] Globulin Calc (S) [Mass/Vol] on 11-03-2023 Globulin (S) [Mass/Vol] 4.0 g/dL [facility] Hematocrit Auto (Bld) [Volum e fraction]on 11-03-2023 Hematocrit (Bld) [Volume fraction] 26.1 % 36.0-48.0 [facility] Hemoglobin [Mass/volume] in Bloodon 11-03-2023 Hemoglobin (Bld) [Mass/Vol] 7.8 g/dL 12.0-16.0 [facility] Human papilloma virus 16+18+ 31+33+35+39+45+51+52+56+58+59+66+68 DNA [Presence] in [place] 11-03-2023 HPV 16+18+31+33+35+39+45+51 +52+56+58+59+66+68 DNA Probe+sig amp Ql (Cvx) Negative Negative [facility] Comment on above: This nucleic acid am plification test detects fourteen high-risk HPV types (16,18,31,33,35,39,45,51,52,56,58,59,66,68)without differentiation.Performed at: =[facility] [address] [id number] Director: Monse Cardona MD, Phone: [phone] at: [facility] [address] [id number] Director: Monse Cardona MD, Phone: [phone] Iron binding capacity [Mass/ volume] in Serum or Plasmaon 11-03-2023 Iron binding capacity [Mass/Vol] 512.0 ug/dL 250.0-450. 0 [facility] Iron saturation [Mass Fracti on] in Serum or Plasmaon 11-03-2023 Iron saturation [Mass fraction] 2.7 % [facility] Laboratory - Chemistry and C hemistry - challengeon 11-03-2023 Albumin [Mass/Vol] 3.1 g/dL 3.4-5.0 [facility] ALP [Catalytic activity/Vol] 63 U/L 46-116 [facility] ALT [Catalytic activity/Vol] 29 U/L 14-59 [facility] AST [Catalytic activity/Vol] 18 U/L 15-37 [facility] Bilirubin [Mass/Vol] 0.2 mg/dL 0.2-1.0 [facility] Calcium [Mass/Vol] 8.7 mg/dL 8.5-10.1 [facility] Chloride [Moles/Vol] 102 mmol/L 98-107 [facility] CO2 [Moles/Vol] 27.6 mmol/L 21.0-32.0 [facility] Creatinine [Mass/Vol] 0.70 mg/dL 0.55-1.02 [facility] Ferritin [Mass/Vol] 6.0 ng/mL 8.0-252.0 [facility] GFR/1.73 sq M.predicted MDRD (S/P/Bld) [Vol rate/Area] mL/min/{1.73_m2} >=60 [facility] Glucose [Mass/Vol] 103 mg/dL 74-106 [facility] Iron [Mass/Vol] 14.0 ug/dL 50.0-170.0 [facility] Potassium [Moles/Vol] 3.8 mmol/L 3.5-5.1 [facility] Protein [Mass/Vol] 7.1 g/dL 6.4-8.2 [facility] Sodium [Moles/Vol] 139 mmol/L 136-145 [facility] Urea nitrogen [Mass/Vol] 11.0 mg/dL 7.0-18.0 [facility] Urea nitrogen/Creatinine [Mass ratio] 15.7 mg/mg [facility] Laboratory - Hematology and Cell countson 11-03-2023 Immature granulocytes/100 WBC (Bld) 0.4 % 0.0-0.5 [facility] Leukocytes [#/volume] correc carmelita for nucleated erythrocytes in Blood by Automated counon 11-03-2023 WBC corrected for nucl RBC Auto (Bld) [#/Vol] 7.4 10 3/uL 4.0-11.0 [facility] Lymphocytes Auto (Bld) [#/Vo l]on 11-03-2023 Lymphocytes (Bld) [#/Vol] 2.5 10 3/uL 1.2-3.8 [facility] Lymphocytes/100 WBC Auto (Bl d)on 11-03-2023 Lymphocytes/100 WBC (Bld) 33.6 % 20.5-60.0 [facility] MCH Auto (RBC) [Entitic mass ]on 11-03-2023 MCH (RBC) [Entitic mass] 24.8 pg 26.7-34.0 [facility] MCHC Auto (RBC) [Mass/Vol]on 11-03-2023 MCHC (RBC) [Mass/Vol] 29.9 g/dL 29.9-35.2 [facility] MCV Auto (RBC) [Entitic vol] on 11-03-2023 MCV (RBC) [Entitic vol] 82.9 fL 81.0-99.0 [facility] Monocytes Auto (Bld) [#/Vol] on 11-03-2023 Monocytes (Bld) [#/Vol] 0.4 10 3/uL 0.3-0.8 [facility] Monocytes/100 WBC Auto (Bld) on 11-03-2023 Monocytes/100 WBC (Bld) 5.6 % 1.7-12.0 [facility] Neutrophils Auto (Bld) [#/Vo l]on 11-03-2023 Neutrophils (Bld) [#/Vol] 4.3 10 3/uL 1.4-6.5 [facility] Neutrophils/100 WBC Auto (Bl d)on 11-03-2023 Neutrophils/100 WBC (Bld) 58.5 % 43.0-75.0 [facility] No Panel Informationon 11-02 Eosinophils # (Auto) 0.1 10 3/uL 0.0-0.7 [facility] Immature Granulocyte # (Auto) 0.03 10 3/uL 0.00-0.03 [facility] HPV High Risk Other Comment Note . [facility] Comment on above: TESTS RESULT FLAG UN ITS REF RANGE LAB -DIAGNOSIS: 02 NEGATIVE FOR INTRAEPITHELIAL LESION OR MALIGNANCY.Specimen adequacy: 02 Satisfactory for evaluation. Endocervical and/or squamous metaplastic cells (endocervical component) are present.Performed by: 02 Beverly Escalante, Reel Man (ASCP). 02Note: Note 02 The Pap smear [...] High <-Panic Low,>-Panic High,A-Abnormal,AA-Critical Abnormal ------Performed at:[address] [place] [address] Monse Cardona MD, Reference Lab Test Patient Age Note . [facility] Comment on above: TESTS RESULT FLAG UN ITS REF RANGE LAB - Clinician Provided Cytology Information Source.............Cervix;Endocervix No. of containers..01 ThinPrep VialAge Algo ACOG Elise... FLAG LEGEND: L-Low Normal,H-High Normal,LL-Alert Low,HH-Alert High <-Panic Low,>-Panic High,A-Abnormal,AA-Critical Abnormal ------Performed at:01 =[facility] [address] Monse Cardona MD, Platelet mean volume Auto (B ld) [Entitic vol]on 11-03-2023 Platelet mean volume (Bld) [Entitic vol] 9.6 fL 9.5-13.5 [facility] Platelets Auto (Bld) [#/Vol] on 11-03-2023 Platelets (Bld) [#/Vol] 323 10 3/uL 150-450 [facility] RBC Auto (Bld) [#/Vol]on RBC (Bld) [#/Vol] 3.15 10 6/uL 4.20-5.40 [facility] Serum or plasma albumin/glob ulin mass ratioon 11-03-2023 Albumin/Globulin [Mass ratio] 0.8 {ratio} [facility] Serum or plasma anion gap de terminationon 11-03-2023 Anion gap [Moles/Vol] 13.2 mmol/L [facility] Basophils Auto (Bld) [#/Vol] on 10-30-2023 Basophils (Bld) [#/Vol] 0.0 10 3/uL 0.0-0.1 [facility] Basophils/100 WBC Auto (Bld) on 10-30-2023 Basophils/100 WBC (Bld) 0.6 % 0.2-2.0 [facility] Eosinophils/100 WBC Auto (Bl d)on 10-30-2023 Eosinophils/100 WBC (Bld) 1.2 % 0.9-7.0 [facility] Erythrocyte distribution wid th Auto (RBC) [Ratio]on 10-30-2023 Erythrocyte distribution width (RBC) [Ratio] 16.6 % 11.0-15.0 [facility] Estimated glomerular filtrat ion rate (GFR) non- Americanon 10-30-2023 GFR/1.73 sq M.predicted among non-blacks MDRD (S/P/Bld) [Vol rate/Area] mL/min/{1.73_m2} >=60 [facility] HCG ( test) IA.rapi d Ql (U)on 10-30-2023 HCG ( test) Ql (U) Negative NEGATIVE [facility] Hematocrit Auto (Bld) [Volum e fraction]on 10-30-2023 Hematocrit (Bld) [Volume fraction] 26.6 % 36.0-48.0 [facility] Hemoglobin [Mass/volume] in Bloodon 10-30-2023 Hemoglobin (Bld) [Mass/Vol] 7.9 g/dL 12.0-16.0 [facility] Laboratory - Chemistry and C hemistry - challengeon 10-30-2023 Calcium [Mass/Vol] 8.5 mg/dL 8.5-10.1 [facility] Chloride [Moles/Vol] 101 mmol/L 98-107 [facility] CO2 [Moles/Vol] 28.8 mmol/L 21.0-32.0 [facility] Creatinine [Mass/Vol] 0.62 mg/dL 0.55-1.02 [facility] GFR/1.73 sq M.predicted MDRD (S/P/Bld) [Vol rate/Area] mL/min/{1.73_m2} >=60 [facility] Glucose [Mass/Vol] 104 mg/dL 74-106 [facility] Potassium [Moles/Vol] 4.0 mmol/L 3.5-5.1 [facility] Sodium [Moles/Vol] 137 mmol/L 136-145 [facility] Urea nitrogen [Mass/Vol] 8.0 mg/dL 7.0-18.0 [facility] Urea nitrogen/Creatinine [Mass ratio] 12.9 mg/mg [facility] Laboratory - Hematology and Cell countson 10-30-2023 Immature granulocytes/100 WBC (Bld) 0.4 % 0.0-0.5 [facility] Leukocytes [#/volume] correc carmelita for nucleated erythrocytes in Blood by Automated counon 10-30-2023 WBC corrected for nucl RBC Auto (Bld) [#/Vol] 7.3 10 3/uL 4.0-11.0 [facility] Lymphocytes Auto (Bld) [#/Vo l]on 10-30-2023 Lymphocytes (Bld) [#/Vol] 2.2 10 3/uL 1.2-3.8 [facility] Lymphocytes/100 WBC Auto (Bl d)on 10-30-2023 Lymphocytes/100 WBC (Bld) 30.2 % 20.5-60.0 [facility] MCH Auto (RBC) [Entitic mass ]on 10-30-2023 MCH (RBC) [Entitic mass] 25.0 pg 26.7-34.0 [facility] MCHC Auto (RBC) [Mass/Vol]on 10-30-2023 MCHC (RBC) [Mass/Vol] 29.7 g/dL 29.9-35.2 [facility] MCV Auto (RBC) [Entitic vol] on 10-30-2023 MCV (RBC) [Entitic vol] 84.2 fL 81.0-99.0 [facility] Monocytes Auto (Bld) [#/Vol] on 10-30-2023 Monocytes (Bld) [#/Vol] 0.3 10 3/uL 0.3-0.8 [facility] Monocytes/100 WBC Auto (Bld) on 10-30-2023 Monocytes/100 WBC (Bld) 3.7 % 1.7-12.0 [facility] Neutrophils Auto (Bld) [#/Vo l]on 10-30-2023 Neutrophils (Bld) [#/Vol] 4.6 10 3/uL 1.4-6.5 [facility] Neutrophils/100 WBC Auto (Bl d)on 10-30-2023 Neutrophils/100 WBC (Bld) 63.9 % 43.0-75.0 [facility] No Panel Informationon 10-29 Eosinophils # (Auto) 0.1 10 3/uL 0.0-0.7 [facility] Immature Granulocyte # (Auto) 0.03 10 3/uL 0.00-0.03 [facility] Platelet mean volume Auto (B ld) [Entitic vol]on 10-30-2023 Platelet mean volume (Bld) [Entitic vol] 9.4 fL 9.5-13.5 [facility] Platelets Auto (Bld) [#/Vol] on 10-30-2023 Platelets (Bld) [#/Vol] 264 10 3/uL 150-450 [facility] RBC Auto (Bld) [#/Vol]on RBC (Bld) [#/Vol] 3.16 10 6/uL 4.20-5.40 [facility] Serum or plasma anion gap de terminationon 10-30-2023 Anion gap [Moles/Vol] 11.2 mmol/L [facility] MR head/brain wo/w conon MR head/brain wo/[place] [address] MRI Report Signed Patient: Ashly Mehta MR#: [id number] 8 : 1990 Acct:[id number] Age/Sex: 33 / F ADM Date: 10/08/23 Loc: MR Room: Type: [facility] Attending Dr: Gwen Cox DO Copies to: [...] Ivan Holliday M.D.10/08/2023 4:38 PM Dictation Location: [place] [address] Transcribed By: LAMINE 10/08/23 1638 Dictated By: Ivan Holliday II, MD 10/08/23 1630 Signed By: 10/08/23 1638 Normal [facility] HCG ( test) Bello mejia Ql (U)on 10-06-2023 HCG ( test) Ql (U) Negative NEGATIVE [facility] COVID + FLU Quick Testingon 07-07-2023 SARS-CoV-2 (COVID-19) RNA SURI+probe Ql (Unsp spec) Negative [facility] [employer] Other COVID + FLU Quick Testing Negative [facility] [employer] Other Alanine aminotransferase [En zymatic activity/volume] in Serum or PlasmaOrdered By: Celio Mullins on 07-03-2023 ALT [Catalytic activity/Vol] 22 U/L 7-52 [facility] Albumin [Mass/volume] in Ser um or Plasma by Bromocresol green (BCG) dye binding methoOrdered By: Celio Mullins on 07-03-2023 Albumin BCG dye [Mass/Vol] 4.4 g/dL 3.5-5.7 [facility] Alkaline phosphatase [Enzyma tic activity/volume] in Serum or PlasmaOrdered By: Celio Mullins on 07-03-2023 ALP [Catalytic activity/Vol] 68 U/L 34-104 [facility] Aspartate aminotransferase [ Enzymatic activity/volume] in Serum or PlasmaOrdered By: Celio Mullins on 07-03-2023 AST [Catalytic activity/Vol] 18 U/L 13-39 [facility] Bilirubin.total [Mass/volume ] in Serum or PlasmaOrdered By: Celio Mullins on 07-03-2023 Bilirubin [Mass/Vol] 0.4 mg/dL 0.3-1.0 [facility] Calcium [Mass/volume] in Ser um or PlasmaOrdered By: Celio Mullins 07-03-2023 Calcium [Mass/Vol] 9.4 mg/dL 8.6-10.3 [facility] Carbon dioxide, total [Moles /volume] in Serum or PlasmaOrdered By: Celio Mullins on 07-03-2023 CO2 [Moles/Vol] 30.1 mmol/L 21.0-31.0 [facility] Chloride [Moles/volume] in S marta or PlasmaOrdered By: Celio Mullins on 07-03-2023 Chloride [Moles/Vol] 105 mmol/L 98-107 [facility] Cholesterol [Mass/volume] in Serum or PlasmaOrdered By: Celio Mullins 07-03-2023 Cholesterol [Mass/Vol] 126 mg/dL 140-200 [facility] Comment on above: Chol less than 200 m g/dl low riskChol 201-239 mg/dl borderline riskChol 240 mg/dl and greater high risk Cholesterol in LDL Calc [Mas s/Vol]Ordered By: Celio Mullins on 07-03-2023 Cholesterol in LDL [Mass/Vol] 69 mg/dL 0-100 [facility] Comment on above: LDL ATP III CLASSIFI CATIONLDL less than 100 mg/dL OptimalLDL 100-129 mg/dL Near or above optimalLDL 130-159 mg/dL Borderline highLDL 160-189 mg/dL HighLDL greater than 189 mg/dL Very high Cholesterol in VLDL Calc [Ma ss/Vol]Ordered By: Celio Mullins on 07-03-2023 Cholesterol in VLDL [Mass/Vol] 18 mg/dL [facility] Creatinine [Mass/volume] in Serum or PlasmaOrdered By: Celio Mullins on 07-03-2023 Creatinine [Mass/Vol] 0.63 mg/dL 0.60-1.20 [facility] Globulin Calc (S) [Mass/Vol] Ordered By: Celio Mullins on 07-03-2023 Globulin (S) [Mass/Vol] 3.1 g/dL [facility] Glucose [Mass/volume] in Ser um or PlasmaOrdered By: Celio Mullins on 07-03-2023 Glucose [Mass/Vol] 97 mg/dL 70-100 [facility] Comment on above: ADA recommended refe rence rangeRandom Glucose Reference Range is dependent on time and content of last meal. Glucose of more than 200 mg/dL in a nonstressed, ambulatory subject supports the diagnosis of Diabetes Mellitus. No Panel InformationOrdered By: Celio Mullins on 07-03-2023 Estimated GFR (CKD-EPI) > 60.0 mL/Min [facility] Creatinine Clearance (Chem N/A [facility] Potassium [Moles/volume] in Serum or PlasmaOrdered By: Celio Mullins on 07-03-2023 Potassium [Moles/Vol] 4.3 mmol/L 3.5-5.1 [facility] Protein [Mass/volume] in Ser um or PlasmaOrdered By: Celio Mullins on 07-03-2023 Protein [Mass/Vol] 7.5 g/dL 6.4-8.9 [facility] Serum or plasma albumin/glob ulin mass ratioOrdered By: Celio Mullins on 07-03-2023 Albumin/Globulin [Mass ratio] 1.4 {ratio} [facility] Serum or plasma anion gap de terminationOrdered By: Celio Mullins on 07-03-2023 Anion gap [Moles/Vol] 10.2 mmol/L 6.0-15.0 [facility] Serum or plasma high density lipoprotein (HDL) cholesterol measurementOrdered By: Celio Mullins on 07-03-2023 Cholesterol in HDL [Mass/Vol] 39 mg/dL [facility] Comment on above: HDL CHOL ATP-III CLA SSIFICATION Cardiovascular RiskHDL > or equal to 60 mg/dL LOWHDL < 40 mg/dL HIGH Serum or plasma total choles terol/high density lipoprotein (HDL) cholesterol mass ratOrdered By: Celio Mullins on 07-03-2023 Cholesterol.total/Mali sterol in HDL [Mass ratio] 3.2 {ratio} <5.0 [facility] Sodium [Moles/volume] in Ser um or PlasmaOrdered By: Celio Mullins on 07-03-2023 Sodium [Moles/Vol] 141 mmol/L 136-145 [facility] Triglyceride [Mass/volume] i n Serum or PlasmaOrdered By: Celio Mullins on 07-03-2023 Triglyceride [Mass/Vol] 92 mg/dL 0-149 [facility] Comment on above: TRIG ATP III CLASSIF ICATIONTRIG less than 150 mg/dL NormalTRIG 150-199 mg/dL Borderline highTRIG 200-500 mg/dL High TRIG greater than 500 mg/dL Very highStandard traceable to the Center for Disease Conrtrol and Prevention (CDC) test method. Urea nitrogen [Mass/volume] in Serum or PlasmaOrdered By: Celio Mullins on 07-03-2023 Urea nitrogen [Mass/Vol] 13 mg/dL 03-11 [facility] Alanine aminotransferase [En zymatic activity/volume] in Serum or PlasmaOrdered By: Celio Mullins on 07-01-2023 ALT [Catalytic activity/Vol] 21 U/L [facility] Albumin [Mass/volume] in Ser um or Plasma by Bromocresol green (BCG) dye binding methoOrdered By: Celio Mullins on 07-01-2023 Albumin BCG dye [Mass/Vol] 4.6 g/dL 3.5-5.7 [facility] Alkaline phosphatase [Enzyma tic activity/volume] in Serum or PlasmaOrdered By: Celio Mullins on 07-01-2023 ALP [Catalytic activity/Vol] 72 U/L 34-104 [facility] Apolipoprotein B [Mass/volum e] in Serum or PlasmaOrdered By: Celio Mullins on 07-01-2023 Apolipoprotein B [Mass/Vol] 83 mg/dL <90 [facility] Comment on above: Desirable < 90 Charissa almanza High 90 - 99 High 100 - 130 Very High >130 ASCVD RISK THERAPEUTIC TARGET CATEGORY APO B (mg/dL) Very High Risk <80 (if extreme risk <70) High Risk <90 Moderate Risk <90Performed at: [facility] [id number] Director: Jeanna Case MD, Phone: [phone] Aspartate aminotransferase [ Enzymatic activity/volume] in Serum or PlasmaOrdered By: Celio Mullins on 07-01-2023 AST [Catalytic activity/Vol] 19 U/L 13-39 [facility] Bilirubin.total [Mass/volume ] in Serum or PlasmaOrdered By: Celio Mullins on 07-01-2023 Bilirubin [Mass/Vol] 0.4 mg/dL 0.3-1.0 [facility] Calcium [Mass/volume] in Ser um or PlasmaOrdered By: Celio Mullins on 07-01-2023 Calcium [Mass/Vol] 9.8 mg/dL 8.6-10.3 [facility] Carbon dioxide, total [Moles /volume] in Serum or PlasmaOrdered By: Celio Mullins on 07-01-2023 CO2 [Moles/Vol] 25.3 mmol/L 21.0-31.0 [facility] Chloride [Moles/volume] in S marta or PlasmaOrdered By: Celio Mullins on 07-01-2023 Chloride [Moles/Vol] 105 mmol/L 98-107 [facility] Creatinine [Mass/volume] in Serum or PlasmaOrdered By: Celio Mullins on 07-01-2023 Creatinine [Mass/Vol] 0.64 mg/dL 0.60-1.20 [facility] Globulin Calc (S) [Mass/Vol] Ordered By: Cleio Mullins on 07-01-2023 Globulin (S) [Mass/Vol] 3.2 g/dL [facility] Glucose [Mass/volume] in Ser um or PlasmaOrdered By: Celio Mullins on 07-01-2023 Glucose [Mass/Vol] 95 mg/dL 70-100 [facility] Comment on above: ADA recommended refe rence rangeRandom Glucose Reference Range is dependent on time and content of last meal. Glucose of more than 200 mg/dL in a nonstressed, ambulatory subject supports the diagnosis of Diabetes Mellitus. Glucose mean value [Mass/vol ume] in Blood Estimated from glycated hemoglobinOrdered By: Celio Mullins on 07-01-2023 Average glucose Estimated from glycated hemoglobin (Bld) [Mass/Vol] 117 mg/dL [facility] Hemoglobin A1c percentageOrd ered By: Celio Mullins on 07-01-2023 HbA1c (Bld) [Mass fraction] 5.7 % 4.3-5.6 [facility] Comment on above: Increased risk for d iabetes: 5.7 - 6.4diabetes: >6.4glycemic control for adults with diabetes: <7.0 No Panel InformationOrdered By: Celio Mullins on 07-01-2023 Estimated GFR (CKD-EPI) > 60.0 mL/Min [facility] Creatinine Clearance (Chem N/A [facility] Potassium [Moles/volume] in Serum or PlasmaOrdered By: Celio Mullins on 07-01-2023 Potassium [Moles/Vol] 3.8 mmol/L 3.5-5.1 [facility] Protein [Mass/volume] in Ser um or PlasmaOrdered By: Celio Mullins on 07-01-2023 Protein [Mass/Vol] 7.8 g/dL 6.4-8.9 [facility] Serum or plasma albumin/glob ulin mass ratioOrdered By: Celio Mullins on 07-01-2023 Albumin/Globulin [Mass ratio] 1.4 {ratio} [facility] Serum or plasma anion gap de terminationOrdered By: Celio Mullins on 07-01-2023 Anion gap [Moles/Vol] 11.5 mmol/L 6.0-15.0 [facility] Serum or plasma lipoprotein a measurement (moles/volume)Ordered By: Celio Mullins on 07-01-2023 Lipoprotein a [Moles/Vol] 13.0 nmol/L <75.0 [facility] Comment on above: Note: Values greater than or equal to 75.0 nmol/L may indicate an independent risk factor for CHD, but must be evaluated with caution when applied to non- populations due to the influence of genetic factors on Lp(a) across ethnicities.Performed at: [employer] [facility] [id number] Director: Cassius Zhong PhD, Phone: [phone] Sodium [Moles/volume] in Ser um or PlasmaOrdered By: Celio Mullins on 07-01-2023 Sodium [Moles/Vol] 138 mmol/L 136-145 [facility] Urea nitrogen [Mass/volume] in Serum or PlasmaOrdered By: Celio Mullins on 07-01-2023 Urea nitrogen [Mass/Vol] 16 mg/dL 7-25 [facility] COVID Quick Testingon 2022 Result Negative [employer] Other SARS-CoV-2 (COVID-19) RNA NA A+probe Ql (Resp)on 02-11-2023 SARS-CoV-2 (COVID-19) RNA SURI+probe Ql (Unsp spec) Negative [employer] Other DHEA-SULFATEon 01-01-2023 DHEA-Sulfate 95.3 ug/dL Normal 84.8-378.0 [facility] Comment on above: Performed By: #### D RIMA #### [facility] [address] [place] [address] Dr. Kaushik Palomares FSHon 01-01-2023 FSH 4.6 mIU/mL Normal [facility] Comment on above: Result Comment: Adul t Female: Follicular phase 3.5 - 12.5 Ovulation phase 4.7 - 21.5 Luteal phase 1.7 - 7.7 Postmenopausal 25.8 - 134.8 Performed By: #### C BC #### [facility] [address] [place] [address] Dr. Kaushik Palomares LUTEINIZING HORMONE (LH)on 0 01-01-2023 LH 3.5 mIU/mL Normal [facility] Comment on above: Result Comment: Adul t Female: Follicular phase 2.4 - 12.6 Ovulation phase 14.0 - 95.6 Luteal phase 1.0 - 11.4 Postmenopausal 7.7 - 58.5 Performed By: #### L BCL #### [facility] [address] [place] [address] Dr. Kaushik Palomares CBC AUTO DIFFon 12-31-2022 BASO # 0.1 103/ul Normal 0.0-0.1 [facility] Comment on above: Performed By: #### C BC #### [facility] [address] [place] [address] Dr. Kaushik Palomares Basophils/100 WBC (Bld) 0.8 % Normal 0.2-2.0 [facility] Comment on above: Performed By: #### C BC #### [facility] [address] [place] [address] Dr. Kaushik Palomares EO # 0.1 103/ul Normal 0.0-0.7 [facility] Comment on above: Performed By: #### C BC #### [facility] [address] [place] [address] Dr. Kaushik Palomares Eosinophils/100 WBC (Bld) 1.7 % Normal 0.9-7.0 [facility] Comment on above: Performed By: #### C BC #### [facility] [address] [place] [address] Dr. Kaushik Palomares Erythrocyte distribution width (RBC) [Ratio] 12.8 % Normal 11.0-15.0 [facility] Comment on above: Performed By: #### C BC #### [facility] [address] [place] [address] Dr. Kaushik Palomares Hematocrit (Bld) [Volume fraction] 33.0 % Critically low 36.0-48.0 [facility] Comment on above: Performed By: #### C BC #### [facility] [address] [place] [address] Dr. Kaushik Palomares Hemoglobin (Bld) [Mass/Vol] 11.0 g/dL Critically low 12.0-16.0 [facility] Comment on above: Performed By: #### C BC #### [facility] [address] [place] [address] Dr. Kaushik Palomares IG # 0.03 10e3/ul Normal 0.00-0.03 [facility] Comment on above: Performed By: #### C BC #### [facility] Laboratory [address] [place] [address] Dr. Kaushik Palomares IG % 0.5 % Normal 0.0-0.5 [facility] Comment on above: Performed By: #### C BC #### [facility] [address] [place] [address] Dr. Kaushik Palomares LYMPH # 2.4 103/ul Normal 1.2-3.8 [facility] Comment on above: Performed By: #### C BC #### [facility] [address] [place] [address] Dr. Kaushik Palomares Lymphocytes/100 WBC (Bld) 36.6 % Normal 20.5-60.0 [facility] Comment on above: Performed By: #### C BC #### [facility] [address] [place] [address] Dr. Kaushik Palomares MANUAL DIFF REQ NO Normal [facility] Comment on above: Performed By: #### C BC #### [facility] [address] [place] [address] Dr. Kaushik Palomares MCH (RBC) [Entitic mass] 29.0 pg Normal 26.7-34.0 [facility] Comment on above: Performed By: #### C BC #### [facility] [address] [address] [address] Kaushik Palomares MCHC (RBC) [Mass/Vol] 33.3 g/dL Normal 29.9-35.2 [facility] Comment on above: Performed By: #### C BC #### [facility] [address] [address] [address] Kaushik Palomares MCV (RBC) [Entitic vol] 87.1 fL Normal 81.0-99.0 [facility] Comment on above: Performed By: #### C BC #### [facility] [address] [address] [address] Kaushik Palomares MONO # 0.2 103/ul Critically low 0.3-0.8 [facility] Comment on above: Performed By: #### C BC #### [facility] [address] [place] [address] Dr. Kaushik Palomares Monocytes/100 WBC (Bld) 3.6 % Normal 1.7-12.0 [facility] Comment on above: Performed By: #### C BC #### [facility] [address] [address] [address] Kaushik Palomares NEUT # 3.7 103/ul Normal 1.4-6.5 [facility] Comment on above: Performed By: #### C BC #### [facility] [address] [place] [address] Dr. Kaushik Palomares Neutrophils/100 WBC (Bld) 56.8 % Normal 43.0-75.0 [facility] Comment on above: Performed By: #### C BC #### [facility] [address] [place] [address] Dr. Kaushik Palomares Platelet mean volume (Bld) [Entitic vol] 9.8 fL Normal 9.5-13.5 [facility] Comment on above: Performed By: #### C BC #### [facility] [address] [address] [address] Kaushik Palomares PLT 234 103/ul Normal 150-450 [facility] Comment on above: Performed By: #### C BC #### [facility] [address] [address] [address] Kaushik Palomares RBC 3.79 106/ul Critically low 4.20-5.40 [facility] Comment on above: Performed By: #### C BC #### [facility] [address] [place] [address] Dr. Kaushik Palomares WBC 6.5 103/ul Normal 4.0-11.0 [facility] Comment on above: Performed By: #### C BC #### [facility] [address] [place] [address] Dr. Kaushik Palomares FREE T4on 12-31-2022 Free T4 [Mass/Vol] 0.79 ng/dL Normal 0.76-1.46 [facility] Comment on above: Performed By: #### F T4 #### [facility] [address] [place] [address] Dr. Kaushik Palomares GLYCOHEMOGLOBIN A1Con 2022 ADA RECOMMENDATION SEE BELOW Normal [facility] Comment on above: Result Comment: ADA RECOMMENDED LIMIT 4.0 - 6.0 ADA THERAPEUTIC TARGET < 7.0 ACTION SUGGESTED > 7.0 Performed By: #### A 1C #### [facility] [address] [place] [address] Dr. Kaushik Palomares Glucose [Mass/Vol] 111 mg/dL Normal [facility] Comment on above: Performed By: #### A 1C #### [facility] [address] [place] [address] Dr. Kaushik Palomares HbA1c (Bld) [Mass fraction] 5.5 % Normal 4.5-6.2 [facility] Comment on above: Performed By: #### A 1C #### [facility] [address] [place] [address] Dr. Kaushik Palomares TSHon 12-31-2022 TSH 1.114 uIU/mL Normal 0.358-3.74 0 [facility] Comment on above: Performed By: #### C BC #### [facility] [address] [place] [address] Dr. Kaushik Palomares US PELVIS AND TRANSVAGon US PELVIS AND TRANSVAG EXAMINATION: US P KEVYN AND TRANSVAG HISTORY: Abnormal uterine bleeding unrelated [...] SUGEY MACDONALD Date: 2022-11-26 15:58 Normal [facility] XR SACRUM_COCCYXon 3 XR SACRUM_COCCYX EXAMINATION: XR LSPI NE MIN 4 VIEWS, XR SACRUM_COCCYX HISTORY: Sacroiliac [...] SUGEY MACDONALD Date: 2022-11-08 10:01 Normal [facility] PAP ACOG PANEL 2: 30 to 65on 11-05-2022 . . Normal [facility] Comment on above: Result Comment: Perf ormed at: WB Performed By: #### C BC #### [facility] [address] [place] [address] Dr. Kaushik Palomares Age Gdln ACOG Testing 30-65 Normal [facility] Comment on above: Performed By: #### C BC #### [facility] [address] [address] [address] Kaushik Palomares DIAGNOSIS: Comment Normal [facility] Comment on above: Result Comment: NEGA TIVE FOR INTRAEPITHELIAL LESION OR MALIGNANCY. Performed at: WB Performed By: #### C BC #### [facility] [address] [address] [address] Kaushik Palomares HPV Aptima Negative Normal Negative [facility] Comment on above: Result Comment: This nucleic acid amplification test detects fourteen high-risk HPV types (16,18,31,33,35,39,45,51,52,56,58,59,66,68) without differentiation. Performed at: =G Performed By: #### C BC #### [facility] [address] [place] [address] Dr. Kaushik Palomares HPV Genotype Reflex Comment Normal [facility] Comment on above: Result Comment: Crit eria not met, HPV Genotype not performed. Performed at: WB Performed By: #### C BC #### [facility] [address] [place] [address] Dr. Kaushik Palomares Methodology: Comment Normal [facility] Comment on above: Result Comment: This liquid based ThinPrep(R) pap test was screened with the use of an image guided system. Performed at: WB Performed By: #### C BC #### [facility] [address] [place] [address] Dr. Kaushik Palomares Note: Comment Normal [facility] Comment on above: Result Comment: The [...] WB Performed By: #### C BC #### [facility] [address] [address] [address] Kaushik Palomares Performed by: Comment Normal [facility] Comment on above: Result Comment: Robi Graham, Reel Man (ASCP) Performed at: WB Performed By: #### C BC #### [facility] [address] [place] [address] Dr. Kaushik Palomares Specimen adequacy: Comment Normal [facility] Comment on above: Result Comment: Sati sfactory for evaluation. Endocervical and/or squamous metaplastic cells (endocervical component) are present. Performed at: WB Performed By: #### C BC #### [facility] [address] [place] [address] Dr. Kaushik Palomares COVID/FLU RT-PCRon 2 SARS-CoV-2 (COVID-19) RNA SURI+probe Ql (Unsp spec) Negative [employer] Other COVID/FLU RT-PCR Negative [email or web address] [facility] [email or web address] Other HCG-BETA SUBUNIT QUANTon hCG,Beta Subunit,Qnt,Serum <1 Normal [facility] Comment on above: Result Comment: Fema le (Non-) 0 - 5 (Postmenopausal) 0 - 8 . Female () Weeks of Gestation 3 6 - 71 4 10 - 750 5 217 - 7138 6 158 - 19563 7 6292 -488487 8 24015 -728737 9 81813 -045922 10 16168 -172209 12 44938 -115622 14 03605 - 90153 15 30040 - 73304 16 6079 - 41513 17 9010 - 02103 18 0237 - 18239 Rg ECLIA methodology Performed By: #### H CGSUB #### [facility] [address] [place] [address] Dr. Kaushik Palomares T4 LABCORPon 01-22-2022 T4 [Mass/Vol] 7.8 ug/dL Normal 4.5-12.0 [facility] Comment on above: Performed By: #### T 4LC #### [facility] [address] [place] [address] Dr. Kaushik Palomares CBC AUTO DIFFon 01-21-2022 BASO # 0.1 103/ul Normal 0.0-0.1 [facility] Comment on above: Performed By: #### C BC #### [facility] [address] [address] [address] Kaushik Palomares Basophils/100 WBC (Bld) 0.6 % Normal 0.2-2.0 [facility] Comment on above: Performed By: #### C BC #### [facility] [address] [place] [address] Dr. Kaushik Palomares EO # 0.1 103/ul Normal 0.0-0.7 [facility] Comment on above: Performed By: #### C BC #### [facility] [address] [place] [address] Dr. Kaushik Palomares Eosinophils/100 WBC (Bld) 1.2 % Normal 0.9-7.0 [facility] Comment on above: Performed By: #### C BC #### [facility] [address] [place] [address] Dr. Kaushik Palomares Erythrocyte distribution width (RBC) [Ratio] 13.3 % Normal 11.0-15.0 [facility] Comment on above: Performed By: #### C BC #### [facility] [address] [place] [address] Dr. Kaushik Palomares Hematocrit (Bld) [Volume fraction] 40.0 % Normal 36.0-48.0 [facility] Comment on above: Performed By: #### C BC #### [facility] [address] [place] [address] Dr. Kaushik Palomares Hemoglobin (Bld) [Mass/Vol] 12.7 g/dL Normal 12.0-16.0 [facility] Comment on above: Performed By: #### C BC #### [facility] [address] [place] [address] Dr. Kaushik Palomares IG # 0.02 10e3/ul Normal 0.00-0.03 [facility] Comment on above: Performed By: #### C BC #### [facility] [address] [place] [address] Dr. Kaushik Palomares IG % 0.2 % Normal 0.0-0.5 [facility] Comment on above: Performed By: #### C BC #### [facility] [address] [place] [address] Dr. Kaushik Palomares LYMPH # 3.0 103/ul Normal 1.2-3.8 [facility] Comment on above: Performed By: #### C BC #### [facility] [address] [place] [address] Dr. Kaushik Palomares Lymphocytes/100 WBC (Bld) 32.9 % Normal 20.5-60.0 [facility] Comment on above: Performed By: #### C BC #### [facility] [address] [place] [address] Dr. Kaushik Palomares MANUAL DIFF REQ NO Normal [facility] Comment on above: Performed By: #### C BC #### [facility] [address] [place] [address] Dr. Kaushik Palomares MCH (RBC) [Entitic mass] 28.5 pg Normal 26.7-34.0 [facility] Comment on above: Performed By: #### C BC #### [facility] [address] [place] [address] Dr. Kaushik Palomares MCHC (RBC) [Mass/Vol] 31.8 g/dL Normal 29.9-35.2 [facility] Comment on above: Performed By: #### C BC #### [facility] [address] [place] [address] Dr. Kaushik Palomares MCV (RBC) [Entitic vol] 89.7 fL Normal 81.0-99.0 [facility] Comment on above: Performed By: #### C BC #### [facility] [address] [place] [address] Dr. Kaushik Palomares MONO # 0.5 103/ul Normal 0.3-0.8 [facility] Comment on above: Performed By: #### C BC #### [facility] [address] [place] [address] Dr. Kaushik Palomares Monocytes/100 WBC (Bld) 5.1 % Normal 1.7-12.0 [facility] Comment on above: Performed By: #### C BC #### [facility] [address] [address] [address] Kaushik Palomares NEUT # 5.4 103/ul Normal 1.4-6.5 [facility] Comment on above: Performed By: #### C BC #### [facility] [address] [address] [address] Kaushik Palomares Neutrophils/100 WBC (Bld) 60.0 % Normal 43.0-75.0 [facility] Comment on above: Performed By: #### C BC #### [facility] [address] [place] [address] Dr. Kaushik Palomares Platelet mean volume (Bld) [Entitic vol] 9.3 fL Critically low 9.5-13.5 [facility] Comment on above: Performed By: #### C BC #### [facility] [address] [place] [address] Dr. Kaushik Palomares PLT 221 103/ul Normal 150-450 [facility] Comment on above: Performed By: #### C BC #### [facility] [address] [place] [address] Dr. Kaushik Palomares RBC 4.46 106/ul Normal 4.20-5.40 [facility] Comment on above: Performed By: #### C BC #### [facility] [address] [place] [address] Dr. Kaushik Palomares WBC 9.0 103/ul Normal 4.0-11.0 [facility] Comment on above: Performed By: #### C BC #### [facility] [address] [place] [address] Dr. Kaushik Palomares GLYCOHEMOGLOBIN A1Con 2021 ADA RECOMMENDATION SEE BELOW Normal [facility] Comment on above: Result Comment: ADA RECOMMENDED LIMIT 4.0 - 6.0 ADA THERAPEUTIC TARGET < 7.0 ACTION SUGGESTED > 7.0 Performed By: #### C BC #### [facility] [address] [place] [address] Dr. Kaushik Palomares Glucose [Mass/Vol] 94 mg/dL Normal [facility] Comment on above: Performed By: #### C BC #### [facility] [address] [address] [address] Kaushik Palomares HbA1c (Bld) [Mass fraction] 4.9 % Normal 4.5-6.2 [facility] Comment on above: Performed By: #### C BC #### [facility] [address] [address] [address] Kaushik Palomares LIPID PROFILEon 01-21-2022 CHOL-HDL RATIO NORM SEE BELOW Normal [facility] Comment on above: Result Comment: 3.3 - 4.4 LOW RISK 4.4 - 7.1 AVERAGE RISK 7.1 - 11.0 MODERATE RISK >11.0 HIGH RISK Performed By: #### L IPID, CMP, TSH #### [facility] [address] [address] [address] Kaushik Palomares Cholesterol [Mass/Vol] 168 mg/dL Normal <=200 [facility] Comment on above: Performed By: #### L IPID, CMP, TSH #### [facility] [address] [address] [address] Kaushik Palomares Cholesterol in HDL [Mass/Vol] 41 mg/dL Normal 40-60 [facility] Comment on above: Performed By: #### L IPID, CMP, TSH #### [facility] [address] [address] [address] Kaushik Palomares Cholesterol in LDL [Mass/Vol] 90.2 mg/dL Normal [facility] Comment on above: Performed By: #### L IPID, CMP, TSH #### [facility] [address] [address] [address] Kaushik Palomares Cholesterol.total/Mali sterol in HDL [Mass ratio] 4.1 {ratio} Normal [facility] Comment on above: Performed By: #### L IPID, CMP, TSH #### [facility] [address] [address] [address] Kaushik Palomares HDL NORMAL > or = 60 mg/dl - LO W CARDIOVASCULAR RISK <40 mg/dl - HIGH CARDIOVASCULAR RISK Normal [facility] Comment on above: Performed By: #### L IPID, CMP, TSH #### [facility] [address] [address] [address] Kaushik Palomares LDL CALC NORMAL SEE BELOW Normal [facility] Comment on above: Result Comment: <100 mg/dl OPTIMAL 100 - 129 mg/dl NEAR OR ABOVE OPTIMAL 130 - 159 mg/dl BORDERLINE HIGH 160 - 189 mg/dl HIGH >190 mg/dl VERY HIGH Performed By: #### L IPID, CMP, TSH #### [facility] [address] [address] [address] Kaushik Palomares Triglyceride [Mass/Vol] 184 mg/dL Critically high <=150 [facility] Comment on above: Performed By: #### L IPID, CMP, TSH #### [facility] [address] [address] [address] Kaushik Palomares VLDL CALC 36.8 mg/dL Normal [facility] Comment on above: Performed By: #### L IPID, CMP, TSH #### [facility] [address] [address] [address] Kaushik Palomares MICROALBUMIN, RAND URon 06-0 mALB 2.0 mg/L Normal <=30.0 [facility] Comment on above: Performed By: #### C BC #### [facility] [address] [place] [address] Dr. Kaushik Palomares PROF 14(COMP METB)on 022 Albumin [Mass/Vol] 3.7 g/dL Normal 3.4-5.0 [facility] Comment on above: Performed By: #### L IPID, CMP, TSH #### [facility] [address] [address] [address] Kaushik Palomares Albumin/Globulin [Mass ratio] 0.9 {ratio} Normal [facility] Comment on above: Performed By: #### L IPID, CMP, TSH #### [facility] [address] [address] [address] Kaushik Palomares ALP [Catalytic activity/Vol] 53 U/L Normal 46-116 [facility] Comment on above: Performed By: #### L IPID, CMP, TSH #### [facility] [address] [address] [address] Kaushik Palomares ALT [Catalytic activity/Vol] 44 U/L Normal 14-59 [facility] Comment on above: Performed By: #### L IPID, CMP, TSH #### [facility] [address] [address] [address] Kaushik Palomares Anion gap [Moles/Vol] 6.8 mmol/L Normal [facility] Comment on above: Performed By: #### L IPID, CMP, TSH #### [facility] [address] [address] [address] Kaushik Palomares AST [Catalytic activity/Vol] 22 U/L Normal 15-37 [facility] Comment on above: Performed By: #### L IPID, CMP, TSH #### [facility] [address] [address] [address] Kaushik Palomares Bilirubin [Mass/Vol] 0.3 mg/dL Normal 0.2-1.0 [facility] Comment on above: Performed By: #### L IPID, CMP, TSH #### [facility] [address] [address] [address] Kaushik Palomares Calcium [Mass/Vol] 9.2 mg/dL Normal 8.5-10.1 [facility] Comment on above: Performed By: #### L IPID, CMP, TSH #### [facility] [address] [address] [address] Kaushik Palomares Chloride [Moles/Vol] 102 mmol/L Normal 98-107 [facility] Comment on above: Performed By: #### L IPID, CMP, TSH #### [facility] [address] [address] [address] Kaushik Palomares CO2 [Moles/Vol] 31.4 mmol/L Normal 21.0-32.0 [facility] Comment on above: Performed By: #### L IPID, CMP, TSH #### [facility] [address] [address] [address] Kaushik Palomares Creatinine [Mass/Vol] 0.71 mg/dL Normal 0.55-1.02 [facility] Comment on above: Performed By: #### L IPID, CMP, TSH #### [facility] [address] [address] [address] Kaushik Palomares EGFR-AF BELIZEAN >60 Normal >=[address] [facility] Comment on above: Performed By: #### L IPID, CMP, TSH #### [facility] [address] [address] [address] Kaushik Palomares EGFR-NON AF BELIZEAN >60 Normal >=60 [facility] Comment on above: Performed By: #### L IPID, CMP, TSH #### [facility] [address] [place] [address] Dr. Kaushik Palomares Globulin (S) [Mass/Vol] 4.2 g/dL Normal T [facility] Comment on above: Performed By: #### L IPID, CMP, TSH #### [facility] [address] [place] [address] Dr. Kaushik Palomares Glucose [Mass/Vol] 93 mg/dL Normal 74-106 [facility] Comment on above: Performed By: #### L IPID, CMP, TSH #### [facility] [address] [place] [address] Dr. Kaushik Palomares Potassium [Moles/Vol] 4.2 mmol/L Normal 3.5-5.1 [facility] Comment on above: Performed By: #### L IPID, CMP, TSH #### [facility] [address] [place] [address] Dr. Kaushik Palomares Protein [Mass/Vol] 7.9 g/dL Normal 6.4-8.2 [facility] Comment on above: Performed By: #### L IPID, CMP, TSH #### [facility] [address] [place] [address] Dr. Kaushik Palomares Sodium [Moles/Vol] 136 mmol/L Normal 136-145 [facility] Comment on above: Performed By: #### L IPID, CMP, TSH #### [facility] [address] [place] [address] Dr. Kaushik Palomares Urea nitrogen [Mass/Vol] 11.0 mg/dL Normal 7.0-18.0 [facility] Comment on above: Performed By: #### L IPID, CMP, TSH #### [facility] [address] [address] [address] Kaushik Palomares Urea nitrogen/Creatinine [Mass ratio] 15.5 mg/mg Normal [facility] Comment on above: Performed By: #### L IPID, CMP, TSH #### [facility] [address] [address] [address] Kaushik Palomares TSHon 01-21-2022 TSH 1.298 uIU/mL Normal 0.358-3.74 0 [facility] Comment on above: Performed By: #### C BC #### [facility] [address] [address] [address] Kaushik Palomares TSH RANGE SEE BELOW Normal [facility] Comment on above: Result Comment: <0.3 4 UIU/ml HYPERTHYROID 0.34-5.60 UIU/ml EUTHYROID >5.60 UIU/ml HYPOTHYROID Performed By: #### C BC #### [facility] [address] [address] [address] Kaushik Palomares COVID Quick Testingon 2020 Result Negative [employer] Other Quick Strepon 06-17-2021 S. pyogenes Org specific cx Ql (Throat) Negative [employer] Other Quick Strep [employer] Other Urinalysis - AUTOMATEDon Appearance (U) cloudy [employer] Other Bilirubin Ql (U) Negative [employer] Other Color (U) yellow [employer] Other Glucose Ql (U) Negative [employer] Other Hemoglobin Ql (U) large [facility] Other Ketones Ql (U) Negative [employer] Other Leukocyte esterase Test strip Ql (U) trace [employer] Other Nitrite Ql (U) Positive [employer] Other pH (U) 5.5 [pH] [employer] Other Protein Ql (U) 100 [employer] Other Specific gravity (U) [Rel density] 1.025 [employer] Other Urobilinogen (U) [Mass/Vol] 0.2 mg/dL [employer] Other Urinalysis - AUTOMATED No [employer] Other Urine Cultureon 05-31-2021 Urine Culture >100,000 [employer] Other Urine Culture <16 [employer] Other Urine Culture >16 [employer] Other Urine Culture <4 [employer] Other Urine Culture 8 [employer] Other Urine Culture <2 [employer] Other Urine Culture <1 [employer] Other Urine Culture >2 [employer] Other Urine Culture <0.5 [employer] Other Urine Culture >8 [employer] Other Urine Culture >4 [employer] Other Urine Culture <32 [employer] Other Urine Culture >2/38 [employer] Other Vital Signs Date Time Vital Sign Value Performing Clinician Trena min 08-28-2024 13:47-0500 Body height 162.56 cm PHYSICIAN YAMILETH [facility] 08-28-2024 13:47-0500 Body mass index (BMI) [Ratio] 57.4 kg/m2 PHYSICIAN NO [facility] 08-28-2024 13:47-0500 Body temperature 97.1 [degF] PHYSICIAN NO [facility] 08-28-2024 13:47-0500 Body weight 151.95 kg PHYSICIAN NO [facility] 08-28-2024 13:47-0500 Diastolic blood pressure 86 mm[Hg] PHYSICIAN NO [facility] 08-28-2024 13:47-0500 Heart rate 105 /min PHYSICIAN NO [facility] 08-28-2024 13:47-0500 Respiratory rate 16 /min PHYSICIAN NO [facility] 08-28-2024 13:47-0500 SaO2% (BldA) [Mass fraction] 97 % PHYSICIAN NO [facility] 08-28-2024 13:47-0500 Systolic blood pressure 136 mm[Hg] PHYSICIAN NO [facility] 08-24-2024 11:00-0500 Body height 162.56 cm Manisha Marc APRN Work Phone: [facility] 08-24-2024 11:00-0500 Body mass index (BMI) [Ratio] 56.5 kg/m2 Manisha Marc APRN Work Phone: [facility] 08-24-2024 11:00-0500 Body temperature 97 [degF] Manisha Marc APRN Work Phone: [facility] 08-24-2024 11:00-0500 Body weight 149.34 kg Manisha Marc APRN Work Phone: [facility] 08-24-2024 11:00-0500 Diastolic blood pressure 82 mm[Hg] Manisha Marc APRN Work Phone: [facility] 08-24-2024 11:00-0500 Heart rate 104 /min Manisha Marc APRN Work Phone: [facility] 08-24-2024 11:00-0500 SaO2% (BldA) [Mass fraction] 95 % Manisha Barclayfani CARTOGRAPHIC DESIGNER Work Phone: [facility] 08-24-2024 11:00-0500 Systolic blood pressure 134 mm[Hg] Manisha Barclayfani CARTOGRAPHIC DESIGNER Work Phone: [facility] 08-19-2024 11:05-0500 Diastolic blood pressure 72 mm[Hg] Manisha Tari CARTOGRAPHIC DESIGNER Work Phone: [facility] 08-19-2024 11:05-0500 Heart rate 82 /min Manisha Tari CARTOGRAPHIC DESIGNER Work Phone: [facility] 08-19-2024 11:05-0500 Respiratory rate 16 /min Manisha Barclayfani CARTOGRAPHIC DESIGNER Work Phone: [facility] 08-19-2024 11:05-0500 SaO2% (BldA) [Mass fraction] 99 % Manisha Barclayfani CARTOGRAPHIC DESIGNER Work Phone: [facility] 08-19-2024 11:05-0500 Systolic blood pressure 115 mm[Hg] Manisha Barclayfani CARTOGRAPHIC DESIGNER Work Phone: [facility] 08-19-2024 09:01-0500 Body height 162.56 cm Manisha Barclayfani CARTOGRAPHIC DESIGNER Work Phone: [facility] 08-19-2024 09:01-0500 Body weight 149.68 kg Manisha Barclayfani CARTOGRAPHIC DESIGNER Work Phone: [facility] 08-16-2024 11:40-0500 Body mass index (BMI) [Ratio] 57.33 kg/m2 Consuelo Ivan BOOKY Work Phone: [facility] 08-16-2024 11:40-0500 Body weight 151.5 kg Consuelo Ivan BOOKY Work Phone: [facility] 08-16-2024 11:40-0500 Diastolic blood pressure 92 mm[Hg] Consuelo Love BOOKY Work Phone: [facility] 08-16-2024 11:40-0500 Heart rate 82 /min Consuelo Love BOOKY Work Phone: [facility] 08-16-2024 11:40-0500 SaO2% (BldA) [Mass fraction] 93 % Consuelo Love BOOKY Work Phone: [facility] 08-16-2024 11:40-0500 Systolic blood pressure 144 mm[Hg] Consuelo Love BOOKY Work Phone: [facility] 08-09-2024 15:48-0500 Body height 162.56 cm Manisha Marc APRN Work Phone: [facility] 08-09-2024 15:48-0500 Body mass index (BMI) [Ratio] 58.1 kg/m2 Manisha Marc APRN Work Phone: [facility] 08-09-2024 15:48-0500 Body temperature 98.7 [degF] Manisha Marc CARTOGRAPHIC DESIGNER Work Phone: [facility] 08-09-2024 15:48-0500 Body weight 153.76 kg Manisha Marc CARTOGRAPHIC DESIGNER Work Phone: [facility] 08-09-2024 15:48-0500 Diastolic blood pressure 94 mm[Hg] Manisha Marc APRN Work Phone: [facility] 08-09-2024 15:48-0500 Heart rate 135 /min Manisha Marc APRN Work Phone: [facility] 08-09-2024 15:48-0500 SaO2% (BldA) [Mass fraction] 96 % Manisha Marc CARTOGRAPHIC DESIGNER Work Phone: [facility] 08-09-2024 15:48-0500 Systolic blood pressure 134 mm[Hg] Manisha Marc APRN Work Phone: [facility] 06-23-2024 12:21-0500 Body mass index (BMI) [Ratio] 57.47 kg/m2 Christopher Kenny DO Work Phone: [facility] 06-23-2024 12:21-0500 Body weight 151.86 kg Christopher Kenny DO Work Phone: [facility] 06-23-2024 12:21-0500 Diastolic blood pressure 81 mm[Hg] Christopher Kenny DO Work Phone: [facility] 06-23-2024 12:21-0500 Heart rate 104 /min Christopher Kenny DO Work Phone: [facility] 06-23-2024 12:21-0500 SaO2% (BldA) [Mass fraction] 95 % Christopher Kenny DO Work Phone: [facility] 06-23-2024 12:21-0500 Systolic blood pressure 132 mm[Hg] Christopher Kenny DO Work Phone: [facility] 06-21-2024 11:18-0500 Body height 162.56 cm ROSITA Marc Work Phone: [facility] 06-21-2024 11:18-0500 Body mass index (BMI) [Ratio] 57 kg/m2 ROSITA Marc Work Phone: [facility] 06-21-2024 11:18-0500 Body temperature 97.3 [degF] ROSITA Marc Work Phone: [facility] 06-21-2024 11:18-0500 Body weight 150.81 kg ROSITA Marc Work Phone: [facility] 06-21-2024 11:18-0500 Diastolic blood pressure 88 mm[Hg] ROSITA Marc Work Phone: [facility] 06-21-2024 11:18-0500 Heart rate 135 /min CARTOGRAPHIC DESIGNERJosé Miguel Parksacher Work Phone: [facility] 06-21-2024 11:18-0500 SaO2% (BldA) [Mass fraction] 94 % CARTOGRAPHIC DESIGNERJosé Miguel ColladoManisha Charlyacher Work Phone: [facility] 06-21-2024 11:18-0500 Systolic blood pressure 136 mm[Hg] CARTOGRAPHIC DESIGNERJosé Miguel Parksacher Work Phone: [facility] 06-15-2024 09:29-0400 Body height 162.56 cm CARTOGRAPHIC DESIGNERJosé Miguel Parksacher Work Phone: [facility] 06-15-2024 09:290400 Body mass index (BMI) [Ratio] 57.9 kg/m2 CARTOGRAPHIC DESIGNERJosé Miguel Parksacher Work Phone: [facility] 06-15-2024 09:29-0400 Body temperature 97.5 [degF] CARTOGRAPHIC DESIGNERJosé Miguel Parksacher Work Phone: [facility] 06-15-2024 09:29-0400 Body weight 152.97 kg CARTOGRAPHIC DESIGNERJosé Miguel Parksacher Work Phone: [facility] 06-15-2024 09:29-0400 Diastolic blood pressure 88 mm[Hg] ROSITA Parksacher Work Phone: [facility] 06-15-2024 09:29-0400 Heart rate 103 /min CARTOGRAPHIC DESIGNERJosé Miguel Parksacher Work Phone: [facility] 06-15-2024 09:29-0400 Respiratory rate 18 /min CARTOGRAPHIC DESIGNERJosé Miguel Parksacher Work Phone: [facility] 06-15-2024 09:29-0400 SaO2% (BldA) [Mass fraction] 95 % ROSITA Parksacher Work Phone: [facility] 06-15-2024 09:29-0400 Systolic blood pressure 128 mm[Hg] CARTOGRAPHIC DESIGNER Manisha Denyrbacher Work Phone: [facility] 04-21-2024 14:31-0400 Body height 162.56 cm CARTOGRAPHIC DESIGNERJosé Miguel Dyer Denyrbacher Work Phone: [facility] 04-21-2024 14:31-0400 Body mass index (BMI) [Ratio] 55 kg/m2 CARTOGRAPHIC DESIGNER Manisha Denyrbacher Work Phone: [facility] 04-21-2024 14:31-0400 Body weight 145.6 kg CARTOGRAPHIC DESIGNER Manisha Denyrbacher Work Phone: [facility] 04-21-2024 14:31-0400 Diastolic blood pressure 88 mm[Hg] CARTOGRAPHIC DESIGNER Manisha Denyrbacher Work Phone: [facility] 04-21-2024 14:31-0400 Heart rate 111 /min CARTOGRAPHIC DESIGNER Manisha Denyeliudacher Work Phone: [facility] 04-21-2024 14:31-0400 SaO2% (BldA) [Mass fraction] 97 % CARTOGRAPHIC DESIGNER Manisha Denyeliudacher Work Phone: [facility] 04-21-2024 14:31-0400 Systolic blood pressure 136 mm[Hg] CARTOGRAPHIC DESIGNER Manisha Denyrbacher Work Phone: [facility] 11-26-2023 08:40-0400 Body height 162.56 cm CARTOGRAPHIC DESIGNER Manisha Denyrbacher Work Phone: [facility] 11-26-2023 08:40-0400 Body mass index (BMI) [Ratio] 52.9 kg/m2 CARTOGRAPHIC DESIGNER Manisha Denyrbacher Work Phone: [facility] 11-26-2023 08:40-0400 Body weight 139.79 kg CARTOGRAPHIC DESIGNER Manisha Denyrbacher Work Phone: [facility] 11-26-2023 08:40-0400 Diastolic blood pressure 79 mm[Hg] CARTOGRAPHIC DESIGNER Manisha Denyrbacher Work Phone: [facility] 11-26-2023 08:40-0400 Heart rate 97 /min CARTOGRAPHIC DESIGNERJosé Miguel Dyer Denyrbacher Work Phone: [facility] 11-26-2023 08:40-0400 SaO2% (BldA) [Mass fraction] 99 % CARTOGRAPHIC DESIGNER Manisha Denyrbacher Work Phone: [facility] 11-26-2023 08:40-0400 Systolic blood pressure 131 mm[Hg] CARTOGRAPHIC DESIGNER Manisha Denyrbacher Work Phone: [facility] 11-03-2023 14:06-0400 Body height 162.56 cm CARTOGRAPHIC DESIGNER Manisha Denyrbacher Work Phone: [facility] 11-03-2023 14:06-0400 Body mass index (BMI) [Ratio] 53.1 kg/m2 CARTOGRAPHIC DESIGNER Manisha Denyrbacher Work Phone: [facility] 11-03-2023 14:06-0400 Body weight 140.61 kg CARTOGRAPHIC DESIGNER Manisha Denyrbacher Work Phone: [facility] 11-03-2023 14:06-0400 Diastolic blood pressure 78 mm[Hg] CARTOGRAPHIC DESIGNER Manisha Denyrbacher Work Phone: [facility] 11-03-2023 14:06-0400 Heart rate 105 /min CARTOGRAPHIC DESIGNER Manisha Denyrbacher Work Phone: [facility] 11-03-2023 14:06-0400 SaO2% (BldA) [Mass fraction] 98 % CARTOGRAPHIC DESIGNER Manisha Denyrbacher Work Phone: [facility] 11-03-2023 14:06-0400 Systolic blood pressure 118 mm[Hg] CARTOGRAPHIC DESIGNERJosé Miguel ThaoManisha Denyrbacher Work Phone: [facility] 10-08-2023 10:50-0500 Body height 162.56 cm ROSITA Parksacher Work Phone: [facility] 10-08-2023 10:50-0500 Body weight 139.25 kg CARTOGRAPHIC DESIGNERJosé Miguel Parksacher Work Phone: [facility] 10-01-2023 09:20-0500 Body height 162.56 cm CARTOGRAPHIC DESIGNERJosé Miguel Parksacher Work Phone: [facility] 10-01-2023 09:20-0500 Body mass index (BMI) [Ratio] 53.6 kg/m2 CARTOGRAPHIC DESIGNERJosé Miguel Parksacher Work Phone: [facility] 10-01-2023 09:20-0500 Body weight 141.69 kg CARTOGRAPHIC DESIGNERJosé Miguel Parksacher Work Phone: [facility] 10-01-2023 09:20-0500 Diastolic blood pressure 75 mm[Hg] CARTOGRAPHIC DESIGNERJosé Miguel Parksacher Work Phone: [facility] 10-01-2023 09:20-0500 Heart rate 85 /min CARTOGRAPHIC DESIGNERJosé Miguel Parksacher Work Phone: [facility] 10-01-2023 09:20-0500 Respiratory rate 18 /min CARTOGRAPHIC DESIGNERJosé Miguel Parksacher Work Phone: [facility] 10-01-2023 09:20-0500 SaO2% (BldA) [Mass fraction] 99 % CARTOGRAPHIC DESIGNERJosé Miguel Parksacher Work Phone: [facility] 10-01-2023 09:20-0500 Systolic blood pressure 123 mm[Hg] CARTOGRAPHIC DESIGNERJosé Miguel Parksacher Work Phone: [facility] 09-03-2023 08:00-0500 Body height 162.56 cm CARTOGRAPHIC DESIGNERJosé Miguel Parksacher Work Phone: [facility] 09-03-2023 08:00-0500 Body weight 138.79 kg ROSITA Marc Work Phone: [facility] 09-03-2023 08:00-0500 Diastolic blood pressure 78 mm[Hg] CARTOGRAPHIC DESIGNER Manisha Charlyacher Work Phone: [facility] 09-03-2023 08:00-0500 Systolic blood pressure 118 mm[Hg] CARTOGRAPHIC DESIGNER Manisha Charlyacher Work Phone: [facility] 08-19-2023 09:45-0500 Body height 162.56 cm Nely Luis Antoniohari Other [facility] 08-13-2023 14:00-0500 Body height 162.56 cm Manisha Marc Other [facility] 08-13-2023 14:00-0500 Body mass index (BMI) [Ratio] 52.35 kg/m2 Manisha Marc Other [facility] [email or web address] Other 08-13-2023 14:00-0500 Body weight 138.35 kg Manisha Marc Other [email or web address] Other 08-13-2023 14:00-0500 Body weight 138.34 kg CARTOGRAPHIC DESIGNER Manisha Tari Work Phone: [facility] 08-13-2023 14:00-0500 Diastolic blood pressure 80 mm[Hg] Manisha Marc Other [facility] 08-13-2023 14:00-0500 SaO2% (BldA) [Mass fraction] 98 % Manisha Marc Other [email or web address] [email or web address] Other 08-13-2023 14:00-0500 Systolic blood pressure 114 mm[Hg] Manisha Marc Other [facility] 07-15-2023 07:45-0500 Body height 162.56 cm Celio Mullins Other [facility] 07-15-2023 07:45-0500 Body mass index (BMI) [Ratio] 52.98 kg/m2 Celio Mullins Other [employer] Other 07-15-2023 07:45-0500 Body weight 140.03 kg Celio Mullins Other [employer] Other 07-15-2023 07:45-0500 Body weight 140.02 kg ROSITA Marc Work Phone: [facility] 07-15-2023 07:45-0500 Diastolic blood pressure 66 mm[Hg] Celio Mullins Other [facility] 07-15-2023 07:45-0500 Respiratory rate 18 /min Celio Mullins Other [employer] Other 07-15-2023 07:45-0500 SaO2% (BldA) [Mass fraction] 98 % Celio Mullins Other [employer] Other 07-15-2023 07:45-0500 Systolic blood pressure 112 mm[Hg] Celio Mullins Other [facility] 07-07-2023 11:15-0500 Body height 162.56 cm Michelle Ernandez Other [facility] 07-07-2023 11:15-0500 Body mass index (BMI) [Ratio] 52.69 kg/m2 Michelle Ernandez Other [employer] Other 07-07-2023 11:15-0500 Body temperature 98 [degF] Michelle Ernandez Other [employer] Other 07-07-2023 11:15-0500 Body weight 139.26 kg Michelle Oma Other [employer] Other 07-07-2023 11:15-0500 Body weight 139.25 kg ROSITA Manisha Marc Work Phone: [facility] 07-07-2023 11:15-0500 Respiratory rate 20 /min Michelle Oma Other [employer] Other 07-07-2023 11:15-0500 SaO2% (BldA) [Mass fraction] 98 % Michelle Oma Other [employer] Other 06-29-2023 10:20-0500 Body height 162.56 cm Michelle Oma Other [employer] Other 06-29-2023 10:20-0500 Body mass index (BMI) [Ratio] 53.03 kg/m2 Michelle Oma Other [employer] Other 06-29-2023 10:20-0500 Body temperature 99.7 [degF] Michelle Oma Other [employer] Other 06-29-2023 10:20-0500 Body weight 140.16 kg Michelle Oma Other [employer] Other 06-29-2023 10:20-0500 Respiratory rate 19 /min Michelle Oma Other [employer] Other 06-29-2023 10:20-0500 SaO2% (BldA) [Mass fraction] 98 % Michelle Oma Other [employer] Other 06-11-2023 15:30-0400 Body height 162.56 cm Manisha Keanetad Other [employer] Other 06-11-2023 15:30-0400 Body mass index (BMI) [Ratio] 53.79 kg/m2 Manisha Marc Other [employer] Other 06-11-2023 15:30-0400 Body weight 142.16 kg Manisha Marc Other [employer] Other 06-11-2023 15:30-0400 Diastolic blood pressure 62 mm[Hg] Manisha Marc Other [employer] Other 06-11-2023 15:30-0400 SaO2% (BldA) [Mass fraction] 99 % Manisha Keanetad Other [employer] Other 06-11-2023 15:30-0400 Systolic blood pressure 126 mm[Hg] Manihsa Marc Other [employer] Other 05-06-2023 13:40-0400 Body height 162.56 cm Casandra Hassan Other [employer] Other 05-06-2023 13:40-0400 Body mass index (BMI) [Ratio] 53.65 kg/m2 Casandra Hassan Other [employer] Other 05-06-2023 13:40-0400 Body temperature 98.4 [degF] Casandra Hassan Other [employer] Other 05-06-2023 13:40-0400 Body weight 141.8 kg Casandra Hassan Other [employer] Other 05-06-2023 13:40-0400 Diastolic blood pressure 81 mm[Hg] Casandra Tesfayeley Other [employer] Other 05-06-2023 13:40-0400 Respiratory rate 18 /min Casandra Sonya Other [employer] Other 05-06-2023 13:40-0400 SaO2% (BldA) [Mass fraction] 95 % Casandra Tesfayeley Other [employer] Other 05-06-2023 13:40-0400 Systolic blood pressure 134 mm[Hg] Casandra Sonya Other [employer] Other 04-30-2023 08:30-0400 Body height 162.56 cm Manisha Marc Other [employer] Other 04-30-2023 08:30-0400 Body mass index (BMI) [Ratio] 53.86 kg/m2 Manisha Marc Other [employer] Other 04-30-2023 08:30-0400 Body weight 142.34 kg Manisha Marc Other [employer] Other 04-30-2023 08:30-0400 Diastolic blood pressure 82 mm[Hg] Manisha Marc Other [employer] Other 04-30-2023 08:30-0400 SaO2% (BldA) [Mass fraction] 100 % Manisha Marc Other [employer] Other 04-30-2023 08:30-0400 Systolic blood pressure 120 mm[Hg] Manisha Tari Other [employer] Other 04-29-2023 07:00-0400 Body height 162.56 cm [employer] Other [employer] Other 04-29-2023 07:00-0400 Body mass index (BMI) [Ratio] 54.41 kg/m2 Nely [employer] Other [employer] Other 04-29-2023 07:00-0400 Body weight 143.79 kg Nely Notcht Other [employer] Other 03-25-2023 13:45-0400 Body height 162.56 cm lucierna Other [employer] Other 03-25-2023 13:45-0400 Body mass index (BMI) [Ratio] 55.45 kg/m2 lucierna Other [employer] Other 03-25-2023 13:45-0400 Body weight 146.56 kg lucierna Other [employer] Other 03-25-2023 13:45-0400 Diastolic blood pressure 57 mm[Hg] lucierna Other [employer] Other 03-25-2023 13:45-0400 Respiratory rate 18 /min lucierna Other [employer] Other 03-25-2023 13:45-0400 SaO2% (BldA) [Mass fraction] 97 % lucierna Other [employer] Other 03-25-2023 13:45-0400 Systolic blood pressure 106 mm[Hg] Celio Mullins Other [employer] Other 02-11-2023 12:15-0400 Body height 163.83 cm Casandra Hassan Other [employer] Other 02-11-2023 12:15-0400 Body mass index (BMI) [Ratio] 54.88 kg/m2 Casandra Hassan Other [employer] Other 02-11-2023 12:15-0400 Body temperature 98 [degF] Casandra Hassan Other [employer] Other 02-11-2023 12:15-0400 Body weight 147.33 kg Casandra Hassan Other [employer] Other 02-11-2023 12:15-0400 Diastolic blood pressure 85 mm[Hg] Casandra Hassan Other [employer] Other 02-11-2023 12:15-0400 Respiratory rate 18 /min Casandra Hassan Other [employer] Other 02-11-2023 12:15-0400 SaO2% (BldA) [Mass fraction] 98 % Casandra Hassan Other [employer] Other 02-11-2023 12:15-0400 Systolic blood pressure 128 mm[Hg] Casandra Hassan Other [employer] Other 07-13-2022 11:15-0500 Body height 163.83 cm Michelle Ernandez Other [employer] Other 07-13-2022 11:15-0500 Body mass index (BMI) [Ratio] 51.54 kg/m2 Michelle Oma Other [employer] Other 07-13-2022 11:15-0500 Body temperature 96.6 [degF] Michelle Oma Other [employer] Other 07-13-2022 11:15-0500 Body weight 138.35 kg Michelle Oma Other [employer] Other 07-13-2022 11:15-0500 Respiratory rate 18 /min Michelle Oma Other [employer] Other 07-13-2022 11:15-0500 SaO2% (BldA) [Mass fraction] 96 % Michelle Oma Other [employer] Other 07-06-2021 13:00-0500 Body height 163.83 cm Michelle Oma Other [employer] Other 07-06-2021 13:00-0500 Body mass index (BMI) [Ratio] 49 kg/m2 Michelle Oma Other [employer] Other 07-06-2021 13:00-0500 Body temperature 97.5 [degF] Michelle Oma Other [employer] Other 07-06-2021 13:00-0500 Body weight 131.54 kg Michelle Oma Other [employer] Other 07-06-2021 13:00-0500 SaO2% (BldA) [Mass fraction] 96 % Michelle Oma Other [employer] Other 06-17-2021 11:00-0400 Body height 163.83 cm Michelle Haynesmond Other [employer] Other 06-17-2021 11:00-0400 Body mass index (BMI) [Ratio] 49.68 kg/m2 Michelle Oma Other [employer] Other 06-17-2021 11:00-0400 Body temperature 98.3 [degF] Michelle Oma Other [employer] Other 06-17-2021 11:00-0400 Body weight 133.36 kg Michelle Oma Other [employer] Other 06-17-2021 11:00-0400 Respiratory rate 18 /min Michelle Oma Other [employer] Other 06-17-2021 11:00-0400 SaO2% (BldA) [Mass fraction] 96 % Michelle Oma Other [employer] Other 05-31-2021 13:50-0400 Body height 163.83 cm Michelle Oma Other [employer] Other 05-31-2021 13:50-0400 Body mass index (BMI) [Ratio] 50.36 kg/m2 Michelle Oma Other [employer] Other 05-31-2021 13:50-0400 Body temperature 97.8 [degF] Michelle Oma Other [employer] Other 05-31-2021 13:50-0400 Body weight 135.17 kg Michelle Oma Other [facility] [email or web address] Other 05-31-2021 13:50-0400 Diastolic blood pressure 90 mm[Hg] Michelle Ernandez Other [employer] Other 05-31-2021 13:50-0400 Respiratory rate 18 /min Michelle Haynesmond Other [employer] Other 05-31-2021 13:50-0400 SaO2% (BldA) [Mass fraction] 98 % Michelle Ernandez Other [employer] Other 05-31-2021 13:50-0400 Systolic blood pressure 150 mm[Hg] Michelle Haynesmond Other [employer] Other Encounters Encounter Date Encounter Type Care Provider Facility Start: 08-28-2024 End: 08-28-2024 ambulatory PHYSICIAN [facility] Work Phone: Start: 08-28-2024 End: 08-28-2024 Patient encounter procedure PHYSICIAN NO [facility] Work Phone: Start: 08-27-2024 ambulatory Edwrad Richey acility:[facility] Start: 08-24-2024 Registered Recurring PHYSICIAN [facility]AMILETH [facility] Start: 08-24-2024 Immune system finding Manisha Marc APRN Work Phone: [facility] Start: 08-24-2024 Patient encounter status Manisha Marc APRN Work Phone: [facility] Start: 08-24-2024 End: 08-24-2024 ambulatory Manisha Marc APRN Work Phone: [facility] Work Phone: Start: 08-24-2024 End: 08-24-2024 Encounter for antibody response examination Manisha Barclayfani BECKER Work Phone: [facility] Start: 08-24-2024 End: 08-24-2024 Encounter for general adult medical examination without abnormal findings Manisha Parksgareth BECKER Work Phone: [facility] Start: 08-24-2024 End: 08-24-2024 Patient encounter procedure Manisha Tari CARTOGRAPHIC DESIGNER Work Phone: [facility] Work Phone: Start: 08-19-2024 Non-patient / Non-visit Sherry willard Tari BECKER Work Phone: [facility] Work Phone: Start: 08-19-2024 End: 08-19-2024 Admission to same day surgery center Manisha Tari BECKER Work Phone: [facility] Work Phone: Start: 08-19-2024 End: 08-19-2024 ambulatory Manisha Barclayfani BECKER Work Phone: [facility] Work Phone: Start: 08-16-2024 End: 08-16-2024 Bamboo flowsheet Consuelo Love BOOKY Work Phone: [facility] [employer] [address] Start: 08-16-2024 End: 08-16-2024 Bamboo flowsheet Consuelo Love BOOKY Work Phone: [employer] [address] Start: 08-16-2024 End: 08-16-2024 ambulatory CONSUELO LOVE Not Available Start: 08-16-2024 End: 08-16-2024 Office outpatient visit 15 minutes Consuelo Love BOOKY Work Phone: [employer] [address] Comment on above: Cognitive dysfunctio n (Primary Dx); ALEXX (obstructive sleep apnea); Attention deficit hyperactivity disorder (ADHD), unspecified ADHD type (CMS/HCC); Severe anxiety; Severe episode of recurrent major depressive disorder, without psychotic features (HCC) (CMS/HCC); Bipolar affective disorder, remission status unspecified (CMS/HCC); Episodic migraine (CMS/HCC) Start: 08-09-2024 End: 08-09-2024 ambulatory Manisha Marc Facility:[facility] Start: 08-09-2024 End: 08-09-2024 Departed Referred Manisha Marc APRN Work Phone: [facility] [place] Work Phone: Start: 08-09-2024 End: 08-09-2024 Patient encounter procedure Manisha Marc APRN Work Phone: [facility] Work Phone: Start: 08-03-2024 Registered Recurring Manisha Marc APRN Work Phone: [facility] Start: 07-12-2024 End: 07-12-2024 Patient encounter procedure Mario Mcknight PhD Work Phone: [place] [facility] Comment on above: ADHD (attention defi cit hyperactivity disorder), inattentive type (CMS/HCC) (Primary Dx); ALEXX (obstructive sleep apnea); Bipolar affective disorder, remission status unspecified (CMS/HCC); Other chronic pain; Severe anxiety; Severe episode of recurrent major depressive disorder, without psychotic features (HCC) (CMS/HCC) Start: 07-12-2024 End: 07-12-2024 ambulatory MARKO WATTERSZIO Not Available Start: 06-29-2024 Non-patient / Non-visit Sherry Marc APRN Work Phone: [facility] Work Phone: Start: 06-28-2024 End: 06-28-2024 Bamboo flowsheet Mario Mcknight PhD Work Phone: [facility] Start: 06-28-2024 End: 06-28-2024 Bamboo flowsheet Mario Mcknight PhD Work Phone: [facility] Start: 06-28-2024 End: 06-28-2024 Patient encounter procedure Mario Mcknight PhD Work Phone: [facility] Comment on above: ADHD (attention defi cit hyperactivity disorder), inattentive type (CMS/HCC) (Primary Dx); Cognitive impairment; ALEXX (obstructive sleep apnea); Bipolar affective disorder, remission status unspecified (CMS/HCC); Other chronic pain Start: 06-28-2024 End: 06-28-2024 ambulatory MARIO MCKNIGHT Not Available Start: 06-25-2024 End: 06-25-2024 Departed Referred Manisha Marc APRN Work Phone: [facility] [place] Work Phone: Start: 06-25-2024 End: 06-25-2024 ambulatory Manisha Marc APRN Work Phone: [facility] Work Phone: Start: 06-25-2024 End: 06-25-2024 Patient encounter procedure Manisha Marc APRN Work Phone: [facility] Work Phone: Start: 06-23-2024 ambulatory Facility:[facility] Start: 06-23-2024 End: 06-23-2024 Bamboo flowsheet Gwen Cox DO Work Phone: [facility] [place] [facility] Start: 06-23-2024 End: 06-23-2024 Bamboo flowsheet Gwen Cox DO Work Phone: [facility] [facility] Start: 06-23-2024 End: 06-23-2024 Office outpatient new 45 minutes Gwen Cox DO Work Phone: [facility] [facility] Comment on above: Cognitive impairment (Primary Dx); Anxiety Start: 06-23-2024 End: 06-23-2024 ambulatory GWEN COX Not Available Start: 06-21-2024 End: 06-21-2024 ambulatory ROSITA Marc Work Phone: [facility] Work Phone: Start: 06-21-2024 End: 06-21-2024 Patient encounter procedure CARTOGRAPHIC DESIGNERJosé Miguel Marc Work Phone: [facility] Work Phone: Start: 06-18-2024 Non-patient / Non-visit CARTOGRAPHIC DESIGNERJosé Miguel Marc Work Phone: [facility] Work Phone: Start: 06-15-2024 End: 06-15-2024 Departed Referred ROSITA Marc Work Phone: [facility] [place] Work Phone: Start: 06-15-2024 End: 06-15-2024 ambulatory ROSITA Marc Work Phone: [facility] Work Phone: Start: 06-15-2024 End: 06-15-2024 Patient encounter procedure ROSITA Marc Work Phone: [facility] Work Phone: Start: 06-07-2024 Non-patient / Non-visit ROSITA Marc Work Phone: [facility] Work Phone: Start: 05-13-2024 Registered Recurring ROSITA Marc Work Phone: [facility] Start: 04-21-2024 End: 04-21-2024 ambulatory ROSITA Marc Work Phone: [facility] Work Phone: Start: 04-21-2024 End: 04-21-2024 Patient encounter procedure ROSITA Marc Work Phone: [facility] Work Phone: Start: 04-15-2024 Non-patient / Non-visit CARTOGRAPHIC DESIGNERJosé Miguel Marc Work Phone: [facility] Work Phone: Start: 04-12-2024 Non-patient / Non-visit CARTOGRAPHIC DESIGNER Toshia Marc Work Phone: [facility] Work Phone: Start: 04-03-2024 Registered Recurring ROSITA Marc Work Phone: [facility] Start: 03-16-2024 End: 03-16-2024 ambulatory MELA ANDERSON Not Available Start: 01-19-2024 End: 01-19-2024 ambulatory Bud Combs MD Facility:[facility] Start: 01-01-2024 Registered Recurring ROSITA Marc Work Phone: [facility] Start: 11-26-2023 End: 11-26-2023 ambulatory ROSITA Marc Work Phone: [facility] Work Phone: Start: 11-26-2023 End: 11-26-2023 Patient encounter procedure ROSITA Marc Work Phone: [facility] Work Phone: Start: 11-03-2023 End: 11-03-2023 ambulatory ROSITA Marc Work Phone: [facility] Work Phone: Start: 11-03-2023 End: 11-03-2023 Patient encounter procedure ROSITA Marc Work Phone: [facility] Work Phone: Start: 11-03-2023 End: 11-03-2023 ambulatory MARKO OSCAR Not Available Start: 10-30-2023 Non-patient / Non-visit ROSITA Marc Work Phone: [facility] Work Phone: Start: 10-08-2023 End: 10-08-2023 Patient encounter procedure ROSITA Marc Work Phone: [facility] Work Phone: Start: 10-08-2023 End: 10-08-2023 ambulatory ROSITA Marc Work Phone: [facility] Work Phone: Start: 10-06-2023 Non-patient / Non-visit ROSITA Marc Work Phone: [facility] Work Phone: Start: 10-06-2023 End: 10-06-2023 ambulatory Andrius Yeimiytblake Combs MD Facility:[facility] Start: 10-01-2023 End: 10-01-2023 Patient encounter procedure ROSITA Marc Work Phone: [facility] Work Phone: Start: 10-01-2023 End: 10-01-2023 ambulatory ROSITA Marc Work Phone: [facility] Work Phone: Start: 09-10-2023 Registered Recurring ROSITA Marc Work Phone: [facility] Start: 09-08-2023 End: 09-08-2023 ambulatory Bud Combs MD Facility:[facility] [place] Start: 09-03-2023 End: 09-03-2023 Patient encounter procedure ROSITA Marc Work Phone: [facility]- Start: 08-19-2023 End: 08-19-2023 ambulatory Nely Cruz Other [facility] [email or web address] Other Start: 08-19-2023 IBT FOR OBESITY GROU P 2-10 30M Nely Cruz [facility] Start: 08-19-2023 Registered Recurring CARTOGRAPHIC DESIGNERJosé Miguel Marc Work Phone: [facility] Work Phone: Start: 08-19-2023 End: 08-19-2023 Patient encounter procedure CARTOGRAPHIC DESIGNERJosé Miguel Marc Work Phone: [facility] Work Phone: Start: 08-14-2023 Registered Recurring CARTOGRAPHIC DESIGNERJosé Miguel Marc Work Phone: [facility] Start: 08-13-2023 End: 08-13-2023 ambulatory Manisha Marc Other [facility] [email or web address] Other Start: 08-13-2023 Office outpatient vi sit 15 minutes Manisha Marc [facility] Start: 08-13-2023 End: 08-13-2023 Patient encounter procedure ROSITA Marc Work Phone: [facility] Work Phone: Start: 07-21-2023 End: 07-21-2023 ambulatory Bud Combs MD Facility:[facility] [place] Start: 07-19-2023 End: 07-19-2023 ambulatory ROSITA Marc Work Phone: [facility] Work Phone: Start: 07-19-2023 End: 07-19-2023 Patient encounter procedure ROSITA Marc Work Phone: [facility] Start: 07-15-2023 End: 07-15-2023 ambulatory Celio Mullins Other [employer] Other Start: 07-15-2023 Follow-up encounter Celio Mullins [facility] Start: 07-15-2023 End: 07-15-2023 Patient encounter procedure ROSITA Marc Work Phone: [facility] Work Phone: Start: 07-07-2023 End: 07-07-2023 ambulatory Michelle Ernandez Other [employer] Other Start: 07-07-2023 Office outpatient vi sit 15 minutes Michelle Oma [facility] Start: 07-07-2023 End: 07-07-2023 Patient encounter procedure CARTOGRAPHIC DESIGNERJosé Miguel Marc Work Phone: [facility] [place] Work Phone: Start: 07-03-2023 Registered Recurring ROSITA Marc Work Phone: [facility] Start: 07-03-2023 End: 07-03-2023 ambulatory ROSITA Marc Work Phone: [facility] Work Phone: Start: 07-03-2023 End: 07-03-2023 Patient encounter procedure ROSITA Marc Work Phone: [facility] [place] Work Phone: Start: 07-01-2023 End: 07-01-2023 Patient encounter procedure ROSITA Marc Work Phone: [facility] [place] Work Phone: Start: 06-29-2023 End: 06-29-2023 ambulatory Michelle Oma Other [employer] Other Start: 06-29-2023 Office outpatient vi sit 15 minutes Michelle Haynesmond [facility] Start: 06-17-2023 Registered Recurring CARTOGRAPHIC DESIGNER Layla Marc Work Phone: [facility] Work Phone: Start: 06-11-2023 End: 06-11-2023 ambulatory Manisha Marc Other [employer] Other Start: 06-11-2023 Office outpatient vi sit 25 minutes Manisha Marc [facility] Start: 05-06-2023 End: 05-06-2023 ambulatory Casandra Hassan Other [employer] Other Start: 05-06-2023 Office outpatient vi sit 10 minutes Casandra Hassan [facility] Start: 05-01-2023 End: 05-01-2023 ambulatory Manisha Marc Other [employer] Other Start: 05-01-2023 Telephone encounter Manisha Rico her [facility] Start: 04-30-2023 End: 04-30-2023 ambulatory Manisha Marc Other [employer] Other Start: 04-30-2023 Encounter for genera l adult medical examination without abnormal findings Manisha Marc [facility] Start: 04-30-2023 Periodic preventive med est patient 18-39 yrs Manisha Marc [facility] Start: 04-29-2023 ([facility]) N Init ial Provider Nely Curz [facility] Start: 04-29-2023 End: 04-29-2023 ambulatory Nely Cruz Other [employer] Other Start: 03-25-2023 End: 03-25-2023 ambulatory Celio Mullins Other [employer] Other Start: 03-25-2023 Nutrition therapy Celio Mullins [facility] Start: 03-25-2023 Telephone encounter Celio Owens [facility] Start: 03-14-2023 End: 03-14-2023 ambulatory Nely Cruz Other [employer] Other Start: 03-14-2023 Telephone encounter Nely Nancy [facility] Start: 02-11-2023 End: 02-11-2023 ambulatory Casandra Hassan Other [employer] Other Start: 02-11-2023 Office outpatient vi sit 15 minutes Casandra Hassan [facility] Start: 12-31-2022 End: 01-01-[address] MARKO OSCAR . Facility:[facility] Start: 11-26-2022 End: 11-27-[address] MARKO OSCAR . Facility:[facility] Start: 11-08-2022 End: 11-09-[address] THADDEUS ROD Facility:[facility] Start: 10-28-2022 End: 10-28-[address] MARKO OSCAR . Facility:[facility] Start: 07-13-2022 End: 07-13-2022 ambulatory Michelle Ernandez Other [employer] Other Start: 07-13-2022 Office outpatient vi sit 15 minutes Michelle Ernandez [facility] Start: 03-07-2022 End: 03-08-[address] THADDEUS ROD Facility:[facility] Start: 01-25-2022 Encounter for genera l adult medical examination without abnormal findings DR THADDEUS ROD [facility] Start: 01-21-2022 End: 01-22-[address] THADDEUS ROD Facility:[facility] Start: 01-21-2022 End: 01-22-2022 Encounter for general adult medical examination without abnormal findings DR THADDEUS ROD Facility:[facility] Start: 07-06-2021 End: 07-06-2021 ambulatory Michelle Ernandez Other [employer] Other Start: 07-06-2021 Office outpatient vi sit 15 minutes Michelle Oma [facility] Start: 06-17-2021 Office outpatient vi sit 15 minutes Michelle Oma [facility] Start: 05-31-2021 Office outpatient vi sit 25 minutes Michelle Oma [facility] Start: 08-27-2018 End: 08-27-2018 ambulatory BRENT KINNEY Facility:[facility] Procedures Date Procedure Procedure Detail Performing Clinician Start: 08-19-2024 Esophagogastroduodenoscopy Manisha chamberlain APRN Work Phone: Start: 08-09-2024 Urine culture Manisah Marc APRN Work Phone: Start: 06-25-2024 Urine culture Manisha Marc APRN Work Phone: Start: 06-15-2024 Bacteria identified in Urine by Culture ROSITA Marc Work Phone: Start: 06-15-2024 Urine culture Manisha Marc APRN Work Phone: Start: 11-03-2023 Microscopic observation [Identifier] in Cervix by Cyto stain Gwen Cox DO Work Phone: Start: 10-08-2023 MRI of head ROSITA Marc Work Phone: Start: 05-31-2021 Piperacillin/tazobactam Michelle Oma Other Start: 08-27-2018 extraction, erupted tooth or exposed root (elevation and/or forceps removal) BRENT KINNEY Start: 01-10-2019 removal of impacted tooth - soft tissue BRENT MENDOZARAYMUNDO Start: 08-27-2018 Urine test visual color cmprsn meths BRENT KINNEY Plan of Treatment Date Care Activity Detail Author Start: 10-29-2027 Screening for malign ant neoplasm of cervix [facility] Start: 11-02-2026 Screening for malign ant neoplasm of cervix Pap Smear [facility] Start: 11-09-2024 End: 11-09-2024 Patient encounter procedure 11/09/2024 4:20 PM EDT Office Visit [facility] [place] [address] [place] [address] Consuelo Love NP [address] [place] [address] [facility] [place] [facility] Start: 11-02-2024 End: 11-02-2024 Patient encounter procedure 11/02/2024 11:00 AM EDT Office Visit [facility] [address] [place] [place] [id number] Marok Oscar, DO [address] [place] [address] [facility] Start: 08-19-2024 [facility] Start: 08-16-2024 End: 08-16-2024 Patient encounter procedure 08/16/2024 11:20 AM EST Office Visit [facility] [address] [address] [place] [id number] Consuelo Love NP [address] [place] [id number] [facility] [place] [facility] Start: 07-12-2024 End: 07-12-2024 Patient encounter procedure 07/12/2024 8:00 AM EST [facility] [address] [place] [id number] [facility] Start: 06-28-2024 End: 06-28-2024 Patient encounter procedure [facility] Comment on above: Cognitive impairment Start: 06-25-2024 Bacteria identified in Urine by Culture Urine Culture [facility] Start: 06-25-2024 Urine culture [facility] Start: 06-23-2024 End: 06-23-2024 Patient encounter procedure 06/23/2024 12:30 PM EST [facility] [place] [facility] [place] [phone] Gwen Cox DO [address] [place] [id number] [facility] Comment on above: Arrived Start: 06-21-2024 Patient referral [facility] Work Phone: Start: 06-15-2024 Bacteria identified in Urine by Culture Urine Culture [facility] Start: 06-15-2024 [facility] Start: 06-15-2024 Urine culture [facility] Start: 04-18-2024 Influenza vaccination Influenza Vacc ine (#1) [facility] Chlamydia trachomati s DNA [Presence] in Unspecified specimen by SURI with probe detection [facility] Comprehensive metabo lic 2000 panel - Serum or Plasma [facility] Holter monitor study [facility] MR Unspecified body region [facility] Neisseria gonorrhoea e DNA [Presence] in Unspecified specimen by SURI with probe detection [facility] Patient Education Esophagitis He morrhoids ED Gastritis - Discharge instructions Know your [facility] Work Phone: Patient referral [facility] Work Phone: Trichomonas vaginali s DNA [Presence] in Unspecified specimen by SURI with probe detection [facility] Urine culture [facility] Immunizations Immunization Date Immunization Notes Care Provider Lillie rogers 03-03-2021 Do not use COVID-19 Pfizer 2 dose Manisha Marc Other [facility] 02-10-2021 Do not use COVID-19 Pfizer 2 dose Manisha Marc Other [facility] 08-03-2018 Toradol per 15 mg Michelle Sofia ond Other [employer] Other Payers Date Payer Category Payer Self-pay [id number] 2022 Private Health Insurance 1991 Unknown [id number] 2.16.840.1.255233.3.579.2. 732 1991 Unknown [id number] 2.16.840.1.858709.3.579.2. 593 1991 Unknown [id number] 2.16.840.1.554544.3.579.2. 593 1991 Unknown [id number] 2.16.840.1.037974.3.579.2. 593 1991 Unknown [id number] 2.16.840.1.014597.3.579.2. 593 1991 Unknown [id number] 2.16.840.1.156798.3.579.2. 593 1991 Unknown [id number] 2.16.840.1.995472.3.579.2. 593 1991 Unknown [id number] 2.16.840.1.372253.3.579.2. 196 1991 Unknown [id number] 2.16.840.1.738632.3.579.2. 196 1991 Unknown [id number] 2.16.840.1.122287.3.579.2. 196 1991 Unknown [id number] 2.16.840.1.319231.3.579.2. 196 1991 Unknown [id number] 2.16.840.1.988786.3.579.2. 1259 1991 Unknown [id number] 2.16.840.1.075351.3.579.2. 1259 1991 Unknown [id number] 2.16.840.1.292618.3.579.2. 1259 1991 Unknown [id number] 2.16.840.1.903147.3.579.2. 1259 1991 Unknown [id number] 2.16.840.1.981519.3.579.2. 9 1991 Unknown [id number] 2.16.840.1.773876.3.579.2. 1259 1958 Medicaid [id number] 1959 Unknown [id number] Unknown [place] [id number] Unknown [id number] 2.16.840.1.548014.3.579.2. 531 Unknown [id number] 2.16.840.1.272605.3.579.2. 531 Unknown [id number] 2.16.840.1.741094.3.579.2. 531 Unknown [id number] 2.16.840.1.262303.3.579.2. 531 Unknown [id number] 2.16.840.1.313866.3.579.2. 531 Unknown [id number] 2.16.840.1.268279.3.579.2. 531 Unknown [id number] 2.16.840.1.292719.3.579.2. 531 Social History Date Type Detail Facility Unknown if ever smoked [facility] [email or web address] Other Start: 03-11-2023 Sex Assigned At N [facility] [email or web address] Other Start: 12-07-2021 End: 08-19-2024 Tobacco smoking status OKIS Never smoked tobacco (finding) [facility] Start: 1990 Sex Assigned At Female [facility] Start: 05-31-2024 Alcoholic beverage intake Not Asked [facility] Start: 07-24-2023 History of Social function [facility] Start: 03-11-2023 Gender identity Identifies as female gender (finding) [facility] Start: 06-25-2024 End: 08-28-2024 Sex Female (finding) [facility] Goals Date Patient Goal Desired Activity /State Clinical Notes 05-31-2021 to 08-19-2024 Consuelo Ivan, BOOKY - 08/16/2024 11:20 AM Stephy Mcknight, PhD - 07/12/2024 8:00 AM Stephy Mcknight, PhD - 06/28/2024 8:00 AM Stephani Cox, DO - 06/23/2024 12:30 PM EST Note Date & Type Note Facility 08-19-2024 Procedure note [facility] enter 08-19-2024 Procedure note [facility] enter 08-19-2024 History and physi heike note [facility] enter 08-16-2024 History of Present illness Narrative Formatting of this note is different fro m the original. Images from the original note were not included. Chief Complaint Patient presents with Memory difficulty Subjective Ashly Mehta is a 33 y.o. female. History of Present Illness The patient presents today for a follow-up for memory difficulty. She had neuropsychological evaluation completed for review. She believes her memory has greatly improved since the prior neurology appointment on 06/23/2024. She received a BiPAP approximately 2 weeks ago for sleep apnea and has been using this nightly. Since starting BiPAP therapy, she has been sleeping approximately 6-7 hours per night. She no longer wakes up every hour throughout the night or requires naps during the day. The patient states, I've always spencer had a bad memory, but states she noticed her memory worsening in 2023, and that is why she initially presented to our office for evaluation. She reports a history of anxiety, depression, bipolar disorder, and ADHD. She states her bipolar is, really bad, but believes her anxiety and depression are fairly well managed. She takes lamotrigine for bipolar disorder and duloxetine for anxiety, depression, and SAD. She follows with psychiatry and counseling. She states her psychiatrist plans to get her a case management rn soon. The patient reports difficulty maintaining jobs due to her bipolar disorder, ADHD, and dyslexia. She states she has intermittent visual, auditory, and tactile hallucinations. She reports sometimes she will see or feels bugs crawling that aren't actually there. She will also hear whispering noises intermittently. She lives at home and is independent with all activities of daily living. She manages her medications independently. She drives without difficulty and denies wandering or getting lost. She admits she is easily overwhelmed by tasks and responsibilities. She took Ritalin, Concerta, and Adderall for ADHD as a child but was weaned off of these. The patient states she has had migraines since she was 13 years old. These occurred almost daily when she was 13 but have greatly improved in frequency. She reports having approximately 2-3 migraines per month recently. These are located in the temporal region or behind the eyes. Severity varies. They are accompanied by nausea and increased sensitivity to lights and sounds. They are not accompanied by visual disturbance or vomiting. She states, I feel a little funny in my tummy, when she has a migraine. They last approximately 1-5 hours and are relieved by ibuprofen (800 mg dose) and laying in a dark room. The patient denies any further concerns. Review of Systems Constitutional: Negative for appetite change, chills, fatigue, fever and unexpected weight change. HENT: Negative for trouble swallowing and voice change. Eyes: Negative for visual change, double vision or loss of vision Respiratory: Negative for cough, shortness of breath and wheezing. Cardiovascular: Negative for chest pain and palpitations. Gastrointestinal: Negative for abdominal pain, blood in stool and vomiting. Musculoskeletal: Positive for arthralgias and back pain. Negative for gait problem and myalgias. Neurological: Positive for headaches (accompanied by nausea, photophobia, and phonophobia). Negative for dizziness, tremors, seizures, syncope, facial asymmetry, speech difficulty, weakness, light-headedness and numbness. Positive for memory difficulty Psychiatric/Behavioral: Positive for decreased concentration and hallucinations. Negative for self-injury, sleep disturbance and suicidal ideas. The patient is nervous/anxious. Negative for suicidal or homicidal ideations Past Medical History: Diagnosis Date Abnormal Pap [...] Cefaclor, Cephalosporins, Erythromycin base, and Erythromycin Vitals: 08/16/24 1140 BP: (!) 144/92 Pulse: 82 SpO2: 93% Body mass index is 57.33 kg/m . weight: 334 lb Neurologic exam: Mental status and general appearance: Awake and alert with unlabored respirations. Oriented to person, place, and time. Recent and remote memory are intact. Speech is clear and fluent without aphasia. Speech is non-dysarthric. Attention and concentration are normal. Fund of knowledge is appropriate for level of education. Obese. Cranial nerves: CN II: Visual acuity is normal. Visual valle full to confrontation. CN III, IV, : Pupils are equal, round, and reactive to light. Extraocular movements intact. No ptosis present. CN V: Facial sensation is normal. CN VII: Full and symmetric facial movement. CN VIII: Hearing is normal to finger rub bilaterally. CN IX and X: Palate elevates symmetrically. CN XI: Shoulder shrug is normal bilaterally. CN XII: Tongue is midline without atrophy or fasciculation. Motor: RUE strength deltoid , biceps , triceps , wrist extensors , wrist flexor , and pediatric genetic counselor strength 5/5. LUE strength deltoid , biceps , triceps , wrist extensors , wrist flexor , and pediatric genetic counselor strength 5/5. RLE strength iliopsoas, quadriceps, tibialis anterior, and plantar flexion strength 5/5. LLE strength iliopsoas, quadriceps, tibialis anterior, and plantar flexion strength 5/5. Tone and bulk are normal. Sensory: Sensation is intact to light touch throughout all four extremities. Sensation is intact to temperature in all extremities. Reflexes: RUE biceps reflex 2+ , brachioradialis reflex 2+. LUE biceps reflex 2+ , brachioradialis reflex 2+. RLE knee reflex 2+. LLE knee reflex 2+. Coordination: [id number] testing normal. Rapid alternating movements are normal. Gait: Normal. Review and summary of old records: Neuropsychological evaluation at [facility] on 07/12/2024: Current neuropsychological evaluation demonstrates, when focused and attentive, preserved cognition and memory. Clinical presentation and history is most consistent with ADHD, inattentive type. Severe depression and anxiety, along with poor sleep quality and chronic pain are likely exacerbating the underlying distractibility. MRI of the brain with and without contrast on 05/27/2024: No abnormal or suspicious findings to account for the patient's symptoms. Vitamin B12 and thyroid stimulating hormone on 04/21/2024: Within normal limits. Assessment/Plan Diagnoses and all orders for this visit: Cognitive dysfunction The patient reports subjective cognitive impairment with onset years ago. She remains independent with all ADLs, and memory does not significantly impact her functional ability at this time. MRI of the brain on 05/27/2024 did not identify a cause for the patient's cognitive dysfunction. Vitamin B12 and TSH were within normal limits. Neuropsychological evaluation on 07/12/2024 revealed, when focused and attentive, well-preserved cognition and memory with no evidence of neurodegenerative condition. Rather, Dr. Mcknight felt ADHD, anxiety, depression, poor sleep quality, and chronic pain were likely contributory to the patient's cognitive symptoms. I believe untreated ALEXX was also contributory, and the patient reports noticing improvement in her memory since starting BiPAP approximately 2 weeks ago. PLAN: - I reviewed results and recommendations from neuropsychological evaluation with the patient - We discussed the important of close follow up with psychiatry for aggressive treatment of anxiety and depression, as both of these conditions could contribute to cognitive dysfunction if not adequately managed - I advised the patient to discuss treatment options for ADHD with her psychiatrist to help improve attention/focus - We discussed sleep hygiene, healthy diet, regular physical activity as tolerated, and methods to help with recall of information ALEXX (obstructive sleep apnea) The patient has a recent diagnosis of ALEXX. She reports improvement in her memory, sleep, and daytime fatigue since starting BiPAP treatment. PLAN: - I educated the patient on the association between ALEXX and cognitive dysfunction. I informed the patient that ALEXX can result in reduced attention, worse memory, cognitive deficits, and other adverse health effects if not appropriately managed - Follow up closely with Dr. Cheney for management - I encouraged compliance with BiPAP while asleep Attention deficit hyperactivity disorder (ADHD), unspecified ADHD type (CMS/HCC) Severe anxiety Severe episode of recurrent major depressive disorder, without psychotic features (HCC) (CMS/HCC) Bipolar affective disorder, remission status unspecified (CMS/HCC) The patient has a history of multiple psychiatric conditions including anxiety, depression, bipolar disorder, and also ADHD. She is established with psychiatry and counseling but does not believe these are optimally managed. PLAN: - Follow up closely with psychiatry for management Episodic migraine (CMS/HCC) It is my impression that the patient has episodic migraine. She describes headaches which seemingly to fit most closely with this diagnosis. The patient has had approximately 2-3 migraines per month recently, and these are effectively relieved by ibuprofen. MRI of the brain on 05/27/2024 did not identify a secondary headache cause. PLAN: - Adequate hydration - May continue ibuprofen 800 mg every 8 hours as needed for migraine . Do not exceed the maximum recommended daily dose as detailed on the medication bottle. Limit use to 10 days per month or less to prevent medication overuse headache The patient states she is working with her psychiatrist to establish care with a case management rn, and I believe this is a good idea. I encouraged the patient to follow up with her psychiatrist for this. Diagnosis and treatment options discussed in detail. All questions answered. The patient verbalizes understanding and is agreeable to the plan. Discussion in layman's terms. Follow up in the office within 3 to 4 months; sooner if needed for new or worsening symptoms. Consuelo Love NP [facility] documented in this encounter [facility] 07-12-2024 History of Present illness Narrative Formatting of this note is different fro m the original. Images from the original note were not included. Neuropsychology Mario Mcknight, PhD NEUROPSYCHOLOGICAL EVALUATION Ashly Mehta is a 33 y.o. female referred for neuropsychological evaluation to assist with facilitating and informing medical differential diagnosis and clinical decision-making. The following information was obtained during an interview with the patient, as well as review of available records. PRESENTING PROBLEM: Possible underlying ADHD with baseline history of struggles with attention/concentration, distractibility, sustained attention, squirrel disease due to jumping around between tasks, wandering mind, lack of motivation, easily overwhelmed, difficulty staying on task, requiring structure and to be told what to do, lost in thought, horrible time management, variable organizational skills, impulsive spending habits, losing periods of time, ditziness, forgetfulness, forgetting to complete simple things around the home, and leaving food in the oven due to distractibility. Remains independent in ADLs and housework. Struggles keeping up with finances due to impulsivity. If she has money in her account, she feels compelled to spend it. Fluctuating medication adherence due to distractibility. Continues to drive but feels more comfortable if someone accompanies her. Less physically active due to low back pain. Avoids social engagements as she findings being out in public very anxiety provoking. Poor sleep quality due to difficulty shutting mind down. Diagnosed with ALEXX. In process of being worked up for CPAP fitting. Pain complaints include lumbar spondylosis and migraines (largely when body is under stress). Neurological history includes work-related concussion in 2014/2015. Brain MRI unremarkable. Normal memory labs. Strong family history of ADHD and mental health issues. Psychiatric history includes bipolar II disorder. Meets with psychiatry and therapy. Denied any history of alcohol/substance abuse or smoking. [place] language [place]. Completed an associate's degree and was 24 credits shy of a bachelor's degree. Struggled academically and with attention. 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 Responsible for tending to the needs of 4 clients/day. This position works well for her as it is very structured with clear written responsibilities. Single, never , no children. Lives with boyfriend, grandmother, and grandfather. MEDICAL HISTORY/MEDICATION: MEDICATIONS: Current Outpatient Medications Medication Instructions albuterol HFA 90 mcg/act inhaler 2 puffs, Every 6 hours PRN baclofen (LIORESAL) 10 mg, 3 times daily diazePAM (Valium) 10 MG tablet take 1 tablet by mouth 1 hour prior to procedure DULoxetine (CYMBALTA) 90 mg, Daily RT FeroSul 325 (65 Fe) MG tablet 1 tablet, Daily fluocinonide (Lidex) 0.05 % external solution apply 3 TO 4 drops to scalp once daily ON FRIDAY THROUGH FRIDAY then off WEEKENDS fluticasone (Flonase) 50 MCG/ACT nasal spray 2 sprays, Daily gabapentin (Neurontin) 300 MG capsule Take by mouth. iron polysaccharides (PROFE) 391.3 mg, Oral, Daily lamoTRIgine (LaMICtal) 25 MG tablet take 1 tablet by mouth IN THE MORNING and 2 tablet by mouth IN TH... (REFER TO PRESCRIPTION NOTES). LISINOPRIL PO Lisinopril lisinopril 20 mg, Daily Melatonin 2.5 MG chewable tablet Chew meloxicam (MOBIC) 15 mg, Daily metFORMIN XR (GLUCOPHAGE-XR) 1,000 mg, Oral, Daily with evening meal, Do not crush, chew, or split. metFORMIN, OSM, (Fortamet) 500 MG 24 hr tablet metFORMIN HCl Multiple Vitamins-Minerals (MULTI COMPLETE PO) Multi Complete Vraylar 1.5 MG capsule ASSESSMENT: Presented to appointment on time, alert, and Ox3. Rapport easily established. Good eye contact. Socially appropriate during conversation and testing. Hearing adequate for current purposes. Ambulated independently. Purpose for current evaluation explained and patient agreed to participate. Struggled sustaining consistent attention and easily overwhelmed throughout assessment, which may have impacted optimal performance at times. Findings are therefore interpreted with caution and reflect an underestimation of actual abilities. Vision/Visuoconstruction: Binocular near-point visual acuity 20/20. Visual valle full to confrontation. Nonverbal abstract reasoning 54th %ile. Copy of a complex geometric design >16th %ile. Motor/Speed of Processing: Right-handed. Ultimate Hoops Referee strength 24th %ile with right-hand, 62nd %ile with left. Speeded graphomotor transcoding 1st %ile. Attention/Working Memory: Auditory attention/working memory 31st %ile (7 digits forward, 5 digits backward, 4 digits during sequencing). Speeded visual scanning/attention 12th %ile. Speeded visual divided attention 3rd %ile. Speech/Language: Expressive speech fluent and absent of paraphasic errors. Comprehension adequate for current purposes. Single-word reading 77th %ile. Generative naming to phonemic cues 2nd %ile, 7th %ile to semantic cues. Confrontation naming 21st %ile. Verbal abstract reasoning <1st %ile. Learning and Memory: Learning of a word list 31st %ile (4-4-96-13-13), delayed recall 16th %ile. Recognition discriminability 69th %ile. Forced-choice 16/16. Immediate recall for prose passages 24th %ile, delayed 1st %ile. Recognition >75th %ile. Immediate recall for a variety of geometric figures 42nd %ile, delayed 21st %ile. Recognition >75th %ile. Executive Functioning: Novel problem-solving and cognitive flexibility >16th %ile, 4/6 categories completed in 64 sorts. Responding absent of significant perseveration. Failed to maintain set x2. Emotional Functioning: Severe depression and anxiety. Endorsed thoughts of self-harm that she would not act on. Elevated ADHD symptom report. FINDINGS AND RECOMMENDATIONS: CONCLUSIONS: 1. Estimated average pre-morbid intellectual functioning. 2. Preserved visual acuity without signs of visual field cut or neglect. 3. Preserved bilateral gross motor function. 4. Severe depression and anxiety. 5. Elevated ADHD symptom report. OPINION: Current neuropsychological evaluation demonstrates, when focused and attentive, preserved cognition and memory. Clinical presentation and history is most consistent with ADHD, inattentive type. Severe depression and anxiety, along with poor sleep quality and chronic pain are likely exacerbating the underlying distractibility. RECOMMENDATIONS: Results and recommendations forwarded to treating physician for review during their upcoming appointment. Patient encouraged to contact this office with any additional questions. More aggressive management of the depression and anxiety. Recommend continued psychopharmacologic and psychotherapeutic intervention for optimal prognosis. Treating physician may wish to initiate psychostimulant vs. nonpsychostimulant trial for improved attention/concentration and cognitive efficiency. Nonmedication routes of treatment may include functional nutrition management through [facility] or individual psychotherapy to develop behavioral strategies. Improved sleep quality. Encouraged to follow through with sleep physician recommendations. Behavioral strategies for improved attention and memory: Regularly and frequently review information that must be remembered. Link new information in as many ways as possible to already known information. This strategy creates several avenues for remembering the information later. Utilize external memory sources such as lists, date books, calendars, and pocket-size recorders for information that must be remembered. A cellphone is a useful tool in consolidating all this information into one source. Active listening, such as repeating and summarizing information back to presenter when learning important information for future recall may be beneficial as opposed to simply passive listening. Establish a consistent structured routine. Regular physical activity for stress relief, improved cognitive efficiency, and better sleep. No need for neuropsychological re-evaluation. Thank you for allowing me to participate in the care of this individual. Please contact me with any questions at [phone]. documented in this encounter [facility] 06-28-2024 History of Present illness Narrative Formatting of this note is different fro m the original. Images from the original note were not included. Mario Mcknight, PhD NEUROBEHAVIORAL STATUS EXAMINATION Ashly Mehta is a 33 y.o. female referred for neuropsychological evaluation to assist with facilitating and informing medical differential diagnosis and clinical decision-making. The following information was obtained during an interview with the patient, as well as review of available records. PRESENTING PROBLEM AND HISTORY Possible underlying ADHD with baseline history of struggles with attention/concentration, distractibility, sustained attention, squirrel disease due to jumping around between tasks, wandering mind, lack of motivation, easily overwhelmed, difficulty staying on task, requiring structure and to be told what to do, lost in thought, horrible time management, variable organizational skills, impulsive spending habits, losing periods of time, ditziness, forgetfulness, forgetting to complete simple things around the home, and leaving food in the oven due to distractibility. Remains independent in ADLs and housework. Struggles keeping up with finances due to impulsivity. If she has money in her account, she feels compelled to spend it. Fluctuating medication adherence due to distractibility. Continues to drive but feels more comfortable if someone accompanies her. Less physically active due to low back pain. Avoids social engagements as she findings being out in public very anxiety provoking. Poor sleep quality due to difficulty shutting mind down. Diagnosed with ALEXX. In process of being worked up for CPAP fitting. Pain complaints include lumbar spondylosis and migraines (largely when body is under stress). Neurological history includes work-related concussion in 2015/2015. Brain MRI unremarkable. Normal memory labs. Strong family history of ADHD and mental health issues. Psychiatric history includes bipolar II disorder. Meets with psychiatry and therapy. Denied any history of alcohol/substance abuse or smoking. [place] language [place]. Completed an associate's degree and was 24 credits shy of a bachelor's degree. Struggled academically and with attention. 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 Responsible for tending to the needs of 4 clients/day. This position works well for her as it is very structured with clear written responsibilities. Single, never , no children. Lives with boyfriend, grandmother, and grandfather. MEDICAL HISTORY/MEDICATION: Past Medical History: Diagnosis Date Abnormal Pap [...] affective disorder (CMS/HCC) Secondary amenorrhea Seizure disorder ([facility]/HCC) MEDICATIONS: Current Outpatient Medications Medication Instructions albuterol HFA 90 mcg/act inhaler 2 puffs, Every 6 hours PRN baclofen (LIORESAL) 10 mg, 3 times daily diazePAM (Valium) 10 MG tablet take 1 tablet by mouth 1 hour prior to procedure DULoxetine (CYMBALTA) 90 mg, Daily RT FeroSul 325 (65 Fe) MG tablet 1 tablet, Daily fluocinonide (Lidex) 0.05 % external solution apply 3 TO 4 drops to scalp once daily ON FRIDAY THROUGH FRIDAY then off WEEKENDS fluticasone (Flonase) 50 MCG/ACT nasal spray 2 sprays, Daily gabapentin (Neurontin) 300 MG capsule Take by mouth. iron polysaccharides (PROFE) 391.3 mg, Oral, Daily lamoTRIgine (LaMICtal) 25 MG tablet take 1 tablet by mouth IN THE MORNING and 2 tablet by mouth IN TH... (REFER TO PRESCRIPTION NOTES). LISINOPRIL PO Lisinopril lisinopril 20 mg, Daily Melatonin 2.5 MG chewable tablet Chew meloxicam (MOBIC) 15 mg, Daily metFORMIN XR (GLUCOPHAGE-XR) 1,000 mg, Oral, Daily with evening meal, Do not crush, chew, or split. metFORMIN, OSM, (Fortamet) 500 MG 24 hr tablet metFORMIN HCl Multiple Vitamins-Minerals (MULTI COMPLETE PO) Multi Complete Vraylar 1.5 MG capsule INITIAL IMPRESSION AND PLAN: ADHD, inattentive type, bipolar disorder, chronic pain, migraines, and ALEXX with poor sleep quality: The patient will be scheduled for neuropsychological assessment, which will include tests for memory, reasoning, language, problem-solving, attention, and mood. Thank you for allowing me to participate in the care of this individual. Please contact me with any questions at [phone]. documented in this encounter [facility] 06-23-2024 History of Present illness Narrative Formatting of this note is different fro m the original. Images from the original note were not [...] Morbid obesity with BMI of 50.0-59.9, adult ([facility]) Pain of ovary PCOS (polycystic ovarian syndrome) Pre-diabetes Right ovarian cyst Seasonal affective disorder ([facility]/HCC) Secondary amenorrhea Seizure disorder ([facility]) Past Surgical History: Procedure Laterality Date CHOLECYSTECTOMY [...] , wrist extensors , wrist flexor , pediatric genetic counselor strength 5/5. LUE Strength deltoid , biceps , triceps , wrist extensors , wrist flexor , pediatric genetic counselor strength 5/5. RLE Strength illopsoas, quadriceps, tibialis [...] reflex 2+ . Valiente's sign negative. Coordination: [id number] testing and rapid alternating movements are normal [...] and return instructions documented in this encounter [facility] 06-15-2024 Evaluation note Diagnosis Onset Date Resolution Acute UTI acute June 15, 2024 9:22am Fatty liver disease, nonalcoholic acute June 21 11:13am Frequent UTI acute June 11:13am Obstructive sleep apnea acute N ov2023 11:13am UTI (urinary tract infection) acute June 21 11:13am Dysuria acute June 25, 2024 9:05am Dysuria acute August 09, 2024 3:46pm Excessive sweating acute Decemb er 2023 3:46pm [facility] Work Phone: 1(473) 123-392510-29-2024 Evaluation note* Diagnosis Onset Date Resolution Status Admit Date Acute UTI acute June 15, 2024 9:22am Fatty liver disease, nonalcoholic acute June 21 11:13am Frequent UTI acute June 11:13am Obstructive sleep apnea acute N ov2023 11:13am UTI (urinary tract infection) acute June 21, 2024 11:13am Dysuria acute June 25, 2024 9:05am Dysuria acute August 09, 2024 3:46pm Excessive sweating acute Decemb er 2023 3:46pm Encounter for antibody response examination acute August 10:57am Wellness examination acute 2024 10:57am Immunization status unknown deleted August 24, 2024 10:57am [facility] Work Phone: 1(762) 606-809510-29-2024 Evaluation note* Diagnosis Onset Date Resolution Status Admit Date Acute UTI acute June 15, 2024 9:22am Fatty liver disease, nonalcoholic acute June 21 11:13am Frequent UTI acute June 11:13am Obstructive sleep apnea acute N ov2023 11:13am UTI (urinary tract infection) acute June 21, 2024 11:13am Dysuria acute June 25, 2024 9:05am Dysuria acute August 09, 2024 3:46pm Excessive sweating acute Decemb er 2023 3:46pm Encounter for antibody response examination acute August 10:57am History of seizures acute Augua ry 2024 10:57am Hypertension acute August 24, 2024 10:57am Iron deficiency anemia acute [facility] 2024 10:57am PCOS (polycystic ovarian syndrome) acute August 24 10:57am Severe obesity (BMI >= 40) acute August 24, 2024 10:57am Wellness examination acute Al 2024 10:57am [facility] Work Phone: 1(130) 801-503809-04-2024 Evaluation note* Diagnosis Onset Date Resolution Status Admit Date Aphasia acute April 21, 2024 2:29pm Apnea acute April 21, 2024 2:29pm Fatigue acute April 21, 2024 2:29pm History of seizures acute 2023 2:29pm Loud snoring acute April 2:29pm Memory loss acute April 2:29pm Migraine acute April 21, 2024 2:29pm Morbid obesity acute April 21, 2024 2:29pm Acute UTI acute June 15, 2024 9:22am Fatty liver disease, nonalcoholic acute June 21 11:13am Frequent UTI acute June 11:13am Obstructive sleep apnea acute N ovember 2023 11:13am UTI (urinary tract infection) acute June 21, 2024 11:13am [facility] Work Phone: 1([phone]) 815-486209-04-2024 Evaluation note* Diagnosis Onset Date Resolution Status Admit Date Aphasia acute April 21, 2024 2:29pm Apnea acute April 21, 2024 2:29pm Fatigue acute April 21, 2024 2:29pm History of seizures acute 2023 2:29pm Loud snoring acute April 2:29pm Memory loss acute April 2:29pm Migraine acute April 21, 2024 2:29pm Morbid obesity acute April 21, 2024 2:29pm Acute UTI acute June 15, 2024 9:22am Fatty liver disease, nonalcoholic acute June 21 11:13am Frequent UTI acute June 11:13am Obstructive sleep apnea acute N ovember 2023 11:13am UTI (urinary tract infection) acute June 21, 2024 11:13am Dysuria acute June 25, 2024 9:05am [facility] Work Phone: 1(868) 573-233301-02-2024 Evaluation note* Encounter Date Diagnosis Assessment Notes Treatment Notes Treatment Clinical Notes Aug, Obesity, unspecified classification, unspecified obesity type, unspecified whether serious comorbidity present (ICD-10 - E66.9) Aug, BMI 50.0-59.9, adult (ICD-10 - Z68.43) Aug, Other Summary of Visi t: (A) Importnace of planning to simplify meals (B) Deconstructed Meals (C) Sharing meal ideas (D) Plate method for meal planning ; grocery shortcuts [employer] Other 12-27-2023 Evaluation note* Encounter Date Diagnosis [...] You have been given relevant education handouts. [employer] Other 11-28-2023 Evaluation note* Encounter Date Diagnosis [...] voice recognition software. Please excuse errors in slot editor. Jun, Dietary surveillance and counseling (ICD-10 - [...] metformin 1000 mg total daily, managed by [facility] Jun, Asthma (ICD-10 - J45.909) Jun, Migraine (ICD-10 - G43.909) Jun, Primary hypertension (ICD-10 - I10) Currently on pharmacotherapy Potential for overtreatment given lightheadedness Jun, Other An additional 9 minutes was spent counseling the patient on behavior modification including proper nutrition and physical activity. [employer] Other 11-20-2023 Evaluation note* Encounter Date Diagnosis [...] until you feel better. You may take [id number] Imodium for diarrhea as needed. Avoid dairy foods as well as greasy fried foods. Follow-up with your physician if no improvement in 2 to 3 days. May return to work on Jun, Diarrhea, unspecified type (ICD-10 - R19.7) Diarrhea: adult home care material was printed [employer] Other 11-12-2023 Evaluation note* Encounter Date Diagnosis [...] to 3-day Jun, Bronchitis (ICD-10 - J40) [employer] Other 10-25-2023 Evaluation note* Encounter Date Diagnosis Assessment Notes Treatment Notes Treatment Clinical Notes May, Degenerative lumbar disc (ICD-10 - M51.36) L4-5 Pt would like a referral to pain management regarding her chronic back pain. Her last x-ray of the lumbar spine was completed 10/2022 at [facility]--reviewed and in scanned documents. Referral placed. [...] [facility] for medication mangement. [employer] Other 09-19-2023 Evaluation note* Encounter Date Diagnosis Assessment Notes Treatment Notes Treatment Clinical Notes Apr, Exposure to head lice (ICD-10 - Z20.7) Discussed with patient exam is without any signs of current lice infection. May return to work tomorrow. Patient completed next treatment yesterday. Patient verbalized understanding. [employer] Other 09-14-2023 Evaluation note* Encounter Date Diagnosis Assessment Notes Treatment Notes Treatment Clinical Notes Apr, Primary hypertension (ICD-10 - I10) [employer] Other 09-13-2023 Evaluation note* Encounter Date Diagnosis [...] (ICD-10 - R73.01) Will obtain records from [facility] for most recent labs. Patient [...] Low back pain, unspecified (ICD-10 - M54.50) [employer] Other 09-12-2023 Evaluation note* Encounter Date Diagnosis [...] 2) Aim for < 45 g carb/meal [employer] Other 08-08-2023 Evaluation note* Encounter Date Diagnosis [...] voice recognition software. Please excuse errors in slot editor. Mar, Dietary surveillance and counseling (ICD-10 - [...] as sweet tea, replace ice cream with Belarusian yogurt, use protein shake in the a.m. [...] with the patient, and documenting clinical information. [employer] Other 06-27-2023 Evaluation note* Encounter Date Diagnosis [...] 7 days, sooner if significantly worsening symptoms. [employer] Other 11-26-2022 Evaluation note* Encounter Date Diagnosis [...] 3 days. Off work today and tomorrow [employer] Other 11-19-2021 Evaluation note* Encounter Date Diagnosis [...] Patient care instructions given in writting by [facility] document. [employer] Other 10-31-2021 Evaluation note* Encounter Date Diagnosis [...] Patient care instructions given in writting by [facility] document. [employer] Other 10-14-2021 Evaluation note* Encounter Date Diagnosis Assessment Notes Treatment Notes Treatment Clinical Notes May, Dysuria (ICD-10 - R30.0) May, Urinary tract infection, site not specified (ICD-10 - N39.0) May, Hematuria, unspecified (ICD-10 - R31.9) [employer] Other Evaluation noteNo Information[employer]ort [email or web address] Other Evaluation noteNo assessment information available [facility] Work Phone: Evaluation note* Diagnosis Onset Date Resolution Status Dietary surveillance and counseling acute Exercise counseling acute Food insecurity acute PCOS (polycystic ovarian syndrome) acute Prediabetes acute Severe obesity (BMI >= 40) a [facility] Work Phone: Evaluation note* Diagnosis Onset Date Resolution Status Dietary surveillance and counseling acute Exercise counseling acute Food insecurity acute PCOS (polycystic ovarian syndrome) acute Prediabetes acute Severe obesity (BMI >= 40) a [facility] Lightheadedness acute Menorrhagia acute Palpitations acute [facility] Work Phone: evaluation note* Diagnosis Onset Date Resolution Status Dietary surveillance and counseling acute Exercise counseling acute Food insecurity acute PCOS (polycystic ovarian syndrome) acute Prediabetes acute Severe obesity (BMI >= 40) a [facility] Lightheadedness acute Menorrhagia acute Palpitations acute Dietary surveillance and counseling acute Exercise counseling acute Severe obesity (BMI >= 40) a [facility] Work Phone: evaluation note* Diagnosis Onset Date Resolution Status Lightheadedness acute Menorrhagia acute Palpitations acute Dietary surveillance and counseling acute Exercise counseling acute Severe obesity (BMI >= 40) a [facility] Work Phone: Evaluation note* Diagnosis Onset Date Resolution Status Aphasia acute History of seizures acute Memory loss acute Migraine acute [facility] Work Phone: Evaluation note* Diagnosis Onset Date Resolution Status Aphasia acute Apnea acute Fatigue acute History of seizures acute Loud snoring acute Memory loss acute Migraine acute Morbid obesity acute Acute UTI acute [facility] Work Phone: Evaluation note* Diagnosis Onset Date Resolution Status Aphasia acute Apnea acute Fatigue acute History of seizures acute Loud snoring acute Memory loss acute Migraine acute Morbid obesity acute Acute UTI acute Fatty liver disease, nonalcoholic acute Frequent UTI acute UTI (urinary tract infection) acute [facility] Work Phone: Evaluation note* Diagnosis Cognitive impairment- Primary Unspecified persistent mental disorders due to conditions classified elsewhere Anxiety Anxiety state, unspecified [facility] Diagnosis ADHD (attention deficit hyperactivity disorder), inattentive type (CMS/HCC)- Primary Cognitive impairment Unspecified persistent mental disorders due to conditions classified elsewhere ALEXX (obstructive sleep apnea) Obstructive sleep apnea (adult) (pediatric) Bipolar affective disorder, remission status unspecified (CMS/HCC) Other chronic pain [facility] Diagnosis ADHD (attention deficit hyperactivity disorder), inattentive type (CMS/HCC)- Primary ALEXX (obstructive sleep apnea) Obstructive sleep apnea (adult) (pediatric) Bipolar affective disorder, remission status unspecified (CMS/HCC) Other chronic pain Severe anxiety Severe episode of recurrent major depressive disorder, without psychotic features (HCC) (CMS/HCC) [facility] Diagnosis Cognitive dysfunction- Primary Unspecified persistent mental disorders due to conditions classified elsewhere ALEXX (obstructive sleep apnea) Obstructive sleep apnea (adult) (pediatric) Attention deficit hyperactivity disorder (ADHD), unspecified ADHD type (CMS/HCC) Severe anxiety Severe episode of recurrent major depressive disorder, without psychotic features (HCC) (CMS/HCC) Bipolar affective disorder, remission status unspecified (CMS/HCC) Episodic migraine (CMS/HCC) documented in this encounter [facility] Author Hilaria Burgos [facility] Note Date/Time August 19, 2024 9: 54am [facility] [address] [place] [address] Gastroenterology H&P Signed Patient: Ashly Mehta MR#: [id number] : 1990 Acct:[id number] Age/Sex: 33 / F Adm Date: 5 Loc: Room: Type: [facility] Attending Dr: Hilaria Burgos DO Copies to: DO Manisha Chakraborty APRN, CNP~ Date of Service: 08/19/2024 HISTORY & PHYSICAL: Patient's history with special attention to the cardiovascular, pulmonary systems and the current problem was reviewed with the patient immediately prior to the procedure. Present medications and doses reviewed in the EMR. Allergies and pertinent laboratory tests were also reviewedat this time in the EMR. The physical examination, as below, was then performed. Indication, assessment and HPI: 33-year-old female who presents for EGD and colonoscopy for iron deficiency anemia. Pt does note NSAID use. Menses are irregular and heavy when she has them. Not on PPI or H2 toña. No prior EGD/colonoscopy. Family history of GI malignancy? family hx of colon cancer in her maternal uncle. PHYSICAL EXAMINATION General appearance: cooperative, NAD Skin: No jaundice, no rash or lesions Head: NCAT Eyes: Anicteric Neck: Supple Lungs: Normal respiratory effort, no use of accessory muscles Abdomen: Soft, nondistended Neuro: No focal deficits, Ox3. REVIEW OF SYSTEMS Constitutional: Denies malaise, fevers Cardiovascular: Denies chest pain, palpitations Respiratory: Denies shortness of breath, wheezing Gastrointestinal: As per HPI Genitourinary: Denies dysuria, polyuria Musculoskeletal: Denies joint swelling, joint stiffness Neurological: Denies confusion, numbness, tingling Endocrine: Denies fatigue Written informed consent obtained from the patient. Risks (including but not limited to perforation, infection, bloating, bleeding, need for emergent surgeryand loss of life), benefits and alternatives explained and questions answered. The patient verbalized understanding. Based on history patient is an appropriate candidate for the procedure. Hilaria Burgos DO Present medication and doses reviewed in the EMR Documented By: Hilaria Burgos DO 08/19/24 0859 Signed By: <Electronically signed by Hilaria uBrgos DO> 08/19/24 5246 [facility] Work Phone: Hisqysu general Narrative - Reported* Type Description Date Medical History Asthma Medical History Blood transfusion Medical History Seizure Disorder Medical History migraine headache w/out Aura Medical History herpes Medical History PCOS Medical History hypertensive heart disease Medical History tachycardia Medical History pre diabetes Surgical History Colposcopy Surgical History cholecystectomy Surgical History wisdom teeth Hospitalization History Pneumonia Hospitalization History Hospitalized for blood l oss 2010 [employer] Other [facility] general Narrative - Reported* Type Description Date [...] History Hospitalized for blood l oss 2010 [employer] Other Hisiujr general Narrative - Reported* Type Description Date [...] History Hospitalized for blood l oss 2010 [employer] Other history general Narrative - Reported* Type [...] History Hospitalized for blood l oss 2010 [employer] Other history general Narrative - Reported* Type [...] History Hospitalized for blood l oss 2010 [employer] Other history general Narrative - Reported* Type [...] History Hospitalized for blood l oss 2010 [employer] Other history general Narrative - Reported* Type [...] History Hospitalized for blood l oss 2010 [employer] Other Hospital Discharge instructionsAmbulatory Orders* Referral to Gastroenterology Time Frame: 06/21/24, Location: None Selected * Referral to Urology Time Frame: 06/21/24, Location: None Selected [facility] Work Phone: Reason for referral (narrative)* Reason *FU 06/20 would sherif garnett referral to pscyiatrist -- was recently diagnosed with bipolar and would like medication management. Diagnosis 1 Bipolar 2 disorder ( F31.81) Referral Organization [facility] [employer] sharan Referring Provider First Name Manisha Referring Provider Last Name Charlyachetad Referring Provider Specialty Nurse Noble orozco Referred Organization [facility] Referred Address [address] ,[place], [place],[address] Referred Provider Specialty Psychiatry Referral Priority Routine General Notes Paola Henderson 01:25:30 PM >received today, not sure if [facility] does medication management, waiting for notes to be locked Paola Henderson 06/13/2023 10:34:39 AM >notes locked, referral faxed Clinical Notes p: [phone] f: [id number] [facility] Reason *FU 06/20 would sherif garnett referral to pain management for other options for pain control for back pain Diagnosis 1 Degenerative lumbar disc (M51.36) Referral Organization [facility] sharan Referring Provider First Name Manisha Referring Provider Last Name Charlyachetad Referring Provider Specialty Nurse Noble orozco Referred Organization [facility] Referred Provider Yrn Parsons Referred Address [address], [place],[address] Referred Provider Specialty Pain Medicin e Referral Priority Routine General Notes Paola Henderson 01:21:23 PM >received today, waiting for notes to be locked Paola Henderson 06/13/2023 10:25:26 AM >notes locked, referral faxed Clinical Notes f: [phone] [employer] Other Reason for visit Narrative* Consultation (Routine) - Closed Specialty Diagnoses / Procedures Referred By Contac t Referred To Contact Neurology Diagnoses Aphasia Personal history of other specified conditions Other amnesia Procedures [place] OFFICE/OUTPATIENT NEW LOW MDM 30 MINUTES Manisha Marc NP [address] [place] [address] [place] [address] Phone: tel: fax: Sugey Dinero MD [address] [place] [address] Phone: tel: fax: Referral ID Status Reason Start Date Expiration Date V isits Requested Visits Authorized [id number] Closed Consult and Treat 05/28/2024 11/24/2024 1 1 [facility] for visit Narrative* Consultation (Routine) - Closed Specialty Diagnoses / Procedures Referred By Ela noriega Referred To Contact Psychology Diagnoses Cognitive impairment Procedures [place] OFFICE/OUTPATIENT NEW HIGH MDM 60 MINUTES Gwen Cox DO [address] [place] [address] Phone: tel: fax: Mario Mcknight, PhD [address] [address] Phone: tel: fax: Referral ID Status Reason Start Date Expiration Date V isits Requested Visits Authorized [id number] Closed Specialty Services Required 06/23/2024 12/20/2024 1 1 [facility] Summary Purpose Family History No Family History [...] of breast Unknown History of stroke Unknown sister Family history of mental disorder [...] nonalcoholic Frequent UTI UTI (urinary tract infection) Chief Complaint Admit Date Memory Concerns April 21, 2024 2:29pm BH May 13, 2024 12:00pm possible UTI, cramping, frequency Octobe r 2023 9:22am R30.0 June 15, 2024 9 :27am Amb Documentation June 18, 2024 9 :31am ER f/u abdominal pain June 21, 2024 11:13am Follow up UTI June 25, 2024 9 :05am Reason for Visit Admit Date Aphasia April 21, 2024 2:29pm Apnea April 21, 2024 2:29pm Fatigue April 21, 2024 2:29pm History of seizures April 21, 2024 2:29pm Loud snoring April 21, 2024 2:29pm Memory loss April 21, 2024 2:29pm Migraine April 21, 2024 2:29pm Morbid obesity April 21, 2024 2:29pm Acute UTI June 15, 2024 9 :22am Fatty liver disease, nonalcoholic Novemb er 2023 11:13am Frequent UTI June 21, 2024 1 1:13am Obstructive sleep apnea June 21 11:13am UTI (urinary tract infection) June 212023 11:13am Chief Complaint Admit Date Memory Concerns April 21, 2024 2:29pm BH May 13, 2024 12:00pm possible UTI, cramping, frequency Octobe r 2023 9:22am R30.0 June 15, 2024 9 :27am Amb Documentation June 18, 2024 9 :31am ER f/u abdominal pain June 21, 2024 11:13am Follow up UTI June 25, 2024 9 :05am Burning with urination June 25 11:00am Reason for Visit Admit Date Aphasia April 21, 2024 2:29pm Apnea April 21, 2024 2:29pm Fatigue April 21, 2024 2:29pm History of seizures April 21, 2024 2:29pm Loud snoring April 21, 2024 2:29pm Memory loss April 21, 2024 2:29pm Migraine April 21, 2024 2:29pm Morbid obesity April 21, 2024 2:29pm Acute UTI June 15, 2024 9 :22am Fatty liver disease, nonalcoholic Novemb er 2023 11:13am Frequent UTI June 21, 2024 1 1:13am Obstructive sleep apnea June 21 11:13am UTI (urinary tract infection) June 212023 11:13am Dysuria June 25, 2024 9 :05am Chief Complaint Admit Date possible UTI, cramping, frequency Octobe r 2023 9:22am R30.0 June 15, 2024 9 :27am Amb Documentation June 18, 2024 9 :31am ER f/u abdominal pain June 21, 2024 11:13am Follow up UTI June 25, 2024 9 :05am Burning with urination June 25 11:00am BH August 03, 2024 11:08am uti symptoms August 09, 2024 3:46pm R30.0 August 09, 2024 4:05pm MEHRAN/intestinal malabsorption/elevate whi te blood August 19, 2024 8:38am MEHRAN/intestinal malabsorption/elevate whi te blood August 19, 2024 8:59am Reason for Visit Admit Date Acute UTI June 15, 2024 9 :22am Fatty liver disease, nonalcoholic Novemb er 2023 11:13am Frequent UTI June 21, 2024 1 1:13am Obstructive sleep apnea June 21 11:13am UTI (urinary tract infection) June 212023 11:13am Dysuria June 25, 2024 9 :05am Dysuria August 09, 2024 3:46pm Excessive sweating August 09, 2024 3:46pm Chief Complaint Admit Date possible UTI, cramping, frequency Octobe r 2023 9:22am R30.0 June 15, 2024 9 :27am Amb Documentation June 18, 2024 9 :31am ER f/u abdominal pain June 21, 2024 11:13am Follow up UTI June 25, 2024 9 :05am Burning with urination June 25 11:00am BH August 03, 2024 11:08am uti symptoms August 09, 2024 3:46pm R30.0 August 09, 2024 4:05pm MEHRAN/intestinal malabsorption/elevate whi te blood August 19, 2024 8:38am MEHRAN/intestinal malabsorption/elevate whi te blood August 19, 2024 8:59am Work Physical August 24, 2024 10 :57am Reason for Visit Admit Date Acute UTI June 15, 2024 9 :22am Fatty liver disease, nonalcoholic Novemb er 2023 11:13am Frequent UTI June 21, 2024 1 1:13am Obstructive sleep apnea June 21 11:13am UTI (urinary tract infection) June 212023 11:13am Dysuria June 25, 2024 9 :05am Dysuria August 09, 2024 3:46pm Excessive sweating August 09, 2024 3:46pm Encounter for antibody response examinat ion August 24, 2024 10:57am Wellness examination August 24, 2024 1 0:57am Immunization status unknown August 24, 2024 10:57am Chief Complaint Admit Date possible UTI, cramping, frequency Octobe r 2023 9:22am R30.0 June 15, 2024 9 :27am Amb Documentation June 18, 2024 9 :31am ER f/u abdominal pain June 21, 2024 11:13am Follow up UTI June 25, 2024 9 :05am Burning with urination June 25 11:00am uti symptoms August 09, 2024 3:46pm R30.0 August 09, 2024 4:05pm MEHRAN/intestinal malabsorption/elevate whi te blood August 19, 2024 8:38am MEHRAN/intestinal malabsorption/elevate whi te blood August 19, 2024 8:59am Work Physical August 24, 2024 10 :57am BH August 24, 2024 1: 17pm Rash, swelling at injection site infecte d/reaction August 28, 2024 1:44pm Reason for Visit Admit Date Acute UTI June 15, 2024 9 :22am Fatty liver disease, nonalcoholic Novemb er 2023 11:13am Frequent UTI June 21, 2024 1 1:13am Obstructive sleep apnea June 21 11:13am UTI (urinary tract infection) June 212023 11:13am Dysuria June 25, 2024 9 :05am Dysuria August 09, 2024 3:46pm Excessive sweating August 09, 2024 3:46pm Encounter for antibody response examinat ion August 24, 2024 10:57am History of seizures [facility] 7th, 2025 10 :57am Hypertension August 24, 2024 10 :57am Iron deficiency anemia August 24, 2024 10:57am PCOS (polycystic ovarian syndrome) Janua ry 2024 10:57am Severe obesity (BMI >= 40) August 24, 2024 10:57am Wellness examination August 24, 2024 1 0:57am Additional Source Comments INFORMATION SOURCE (unrecogn ized section and content) DATE CREATED AUTHOR 08/27/2021 [facility] DATE CREATED AUTHOR AUTHOR'S ORGANIZ ATION 01/01/2023 [facility] DATE CREATED AUTHOR AUTHOR'S ORGANIZ ATION 01/30/2024 [facility] DATE CREATED AUTHOR AUTHOR'S ORGANIZ ATION 06/25/2024 [facility] DATE CREATED AUTHOR AUTHOR'S ORGANIZ ATION 08/17/2024 [facility] EPIC DATE CREATED AUTHOR AUTHOR'S ORGANIZ ATION 09/03/2024 [facility] REASON FOR VISIT (unrecogniz ed section and content) Reason Comments Memory difficulty Care Teams (unrecognized sec tion and content) Team Status: Active Member Role Status Dates Manisha Marc APRN BOOK[facility]-C Primary Care Provider Active Team Status: Active Member Role Status Dates Manisha Marc APRN [facility]OOK[facility]-C Primary Care Provider, Attending Provider Active Team Status: Inactive Member Role Status Dates Manisha Marc APRN [facility]-C Primary Care Provider Active Celio Mullins DO Attending Provider Active Team Status: Inactive Member Role Status Dates Manisha Marc APRN [facility]OOK[facility]-C Primary Care Provider Active Clinton Frazier MD Attending Provider Active Team Status: Inactive Member Role Status Dates Manisha Marc APRN [facility] Primary Care Provider Active Start: July 032022 End: July 03, 2023 Celio Mullins DO Attending Provider Active St art: July 03, 2023 End: July 03, 2023 Team Status: Active Member Role Status Dates Manisha Marc APRN BOOK[facility]-C Primary Care Provider Active Start: July 032022 [...] Member Role Status Dates Manisha Marc APRN [facility]OOK[facility]-C Primary Care Provider Active Start: July End: July 19, 2023 Clinton Frazier MD Attending Provider Active Start: July 19, 2023 End: July 19, 2023 Team Status: Inactive Member Role Status Dates Manisha Marc APRN [facility]OOK[facility]-C Attending Provider Act rafal Start: August 13, 2023 End: August 13, 2023 Team Status: Inactive Member Role Status Dates Nely Cage [facility] Attending Provider Active Start: August 19, 2023 End: August 19, 2023 Team Status: Active Member Role Status Dates Manisha Marc APRN [facility]OOK[facility]-C Primary Care Provider, Attending Provider Active Start: August 19, 2023 Team Status: Inactive Member Role Status Dates Manisha Marc APRN [facility]-C Attending Provider Act rafal Start: September 03, 2023 End: September 03, 2023 Team Status: Inactive Member Role Status Dates Manisha Marc APRN [facility]-C Primary Care Provider Active Start: October 012023 End: October 01, 2023 Celio Mullins DO Attending Provider Active St art: October 01, 2023 End: October 01, 2023 Team Status: Active Member Role Status Dates Manisha Marc APRN [facility]OOK[facility]-C Primary Care Provider Active Start: August 142022 Edward Gilmore MD Attending Provider Active Start: August 14, 2023 Team Status: Active Member Role Status Dates Manisha Marc APRN BOOK[facility]-C Primary Care Provider, Attending Provider Active Start: October 06, 2023 Team Status: Inactive Member Role Status Dates Manisha Marc APRN [facility]-C Primary Care Provider Active Start: October 082023 End: October 08, 2023 Gwen Cox DO Attending Provider Active Start: October 08, 2023 End: October 08, 2023 Team Status: Active Member Role Status Dates Manisha Marc APRN [facility]-C Primary Care Provider, Attending Provider Active Start: October 30, 2023 Team Status: Inactive Member Role Status Dates Manisha Marc APRN [facility] Primary Care Provider, Attending Provider Active Start: November 03, 2023 End: November 03, 2023 Team Status: Active Member Role Status Dates Manisha Marc APRN [facility]-C Primary Care Provider Active Start: August Edward Gilmore MD Attending Provider Active Start: September 10, 2023 Team Status: Inactive Member Role Status Dates Manisha Marc APRN [facility] Primary Care Provider Active Start: November 26, 2023 End: November 26, 2023 Celio Mullins DO Attending Provider Active St art: November 26, 2023 End: November 26, 2023 Team Status: Active Member Role Status Dates Manisha Marc APRN [facility] Primary Care Provider Active Start: January 01, 2024 Edward Gilmore MD Attending Provider Active Start: January 01, 2024 Team Status: Active Member Role Status Dates Manisha Marc APRN [facility] Primary Care Provider Active Start: April 03, 2024 Edward Gilmore MD Attending Provider Active Start: April 03, 2024 Team Status: Active Member Role Status Dates Manisha Marc APRN [facility]-C Primary Care Provider Active Start: April 12, 2024 Jaymie Griffin DO Attending Provider Active Start: April 12, 2024 Team Status: Inactive Member Role Status Dates Manisha Marc APRN [facility]-C Primary Care Provider, Attending Provider Active Start: April 21, 2024 End: April 21, 2024 Team Status: Active Member Role Status Dates Manisha Marc APRN [facility]-C Primary Care Provider Active Start: April 12, 2024 Agusto Rojas DO Attending Provider Active Sta rt: April 12, 2024 Team Status: Active Member Role Status Dates Manisha Marc APRN [facility]-C Primary Care Provider Active Start: April 15, 2024 Agusto Rojas DO Attending Provider Active Sta rt: April 15, 2024 Team Status: Active Member Role Status Dates Manisha Marc APRN [facility]OOK[facility]-C Primary Care Provider Active Start: April 192023 Edward Gilmore MD Attending Provider Active Start: May 13, 2024 Team Status: Active Member Role Status Dates Manisha Marc APRN [facility]C Primary Care Provider, Attending Provider Active Start: June 07, 2024 Team Status: Inactive Member Role Status Dates Manisha Marc APRN [employer]-C Primary Care Provider Active Start: May End: [...] Member Role Status Dates Manisha Marc APRN [facility] Primary Care Provider, Attending Provider Active Start: June 21, 2024 End: June 21, 2024 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 Relationship Specialty Start Date End Date Thaddeus Rod MD [address] [place] [address] PCP - General Family Medicine 04/24/23 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 Relationship Specialty Start Date End Date Thaddeus Rod MD [address] [place] [address] PCP - General Family Medicine 04/24/23 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 Relationship Specialty Start Date End Date Thaddeus Rod MD [address] [place] [address] PCP - General Family Medicine 04/24/23 Team Status: Inactive Member Role Status Dates Manisha Marc APRN BOOKY-C Primary Care Provider, Attending Provider Active Start: June 25, 2024 End: June 25, 2024 Team Status: Inactive Member Role Status Dates Manisha Marc APRN BOOKY-C Attending Provider Act rafal Start: June 25, 2024 End: June 25, 2024 [employer]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 Relationship Specialty Start Date End Date Thaddeus Rod MD [address] [facility] [place] [address] PCP - General Family Medicine 04/24/23 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 Relationship Specialty Start Date End Date Thaddeus Rod MD [address] [facility] [place] [address] PCP - General Family Medicine 04/24/23 [employer]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 Relationship Specialty Start Date End Date Thaddeus Rod MD [address] [facility] [place] [address] PCP - General Family Medicine 04/24/23 Team Status: Active Member Role Status Dates Tiffanie Villalobos MD Attending Provider Active St art: June 29, 2024 Team Status: Active Member Role Status Dates Manisha Marc APRN BOOKY-C Primary Care Provider Active Start: August 032023 Ewdard Gilmore MD Attending Provider Active Start: August 03, 2024 Team Status: Inactive Member Role Status Dates Manisha Marc APRN BOOKY-Damion Primary Care Provider, Attending Provider Active Start: August 09, 2024 End: August 09, 2024 Team Status: Inactive Member Role Status Dates Manisha Marc APRN BOOKY-C Attending Provider Active Start: July End: August 09, 2024 PHYSICIAN NO FAMILY Primary Care Provider Active Start: August 09, 2024 End: August 09, 2024 Team Status: Inactive Member Role Status Dates Hilaria Burgos DO Attending Provider Active St art: August 19, 2024 End: August 19, 2024 Manisha Marc APRN BOOKY-C Primary Care Provider Active Start: August 19, 2024 End: August 19, 2024 Team Status: Active Member Role Status Dates Hilaria Burgos DO Attending Provider, Other Provider Active Start: August 19, 2024 Manisha Marc APRN BOOKY-C Primary Care Provider Active Start: August Team Status: Inactive Member Role Status Dates Manisha Marc APRN BOOKY-C Primary Care Provider, Attending Provider Active Start: August 24, 2024 End: August 24, 2024 Team Status: Active Member Role Status Dates Manisha Marc APRN BOOKY-C Primary Care Provider Active Start: August 24, 2024 Edward Gilmore MD Attending Provider Active Start: August 24, 2024 Team Status: Inactive Member Role Status Dates Manisha Marc APRN BOOKY-C Primary Care Provider Active Start: August End: August 28, 2024 Viry Holder APRN Attending Provider Active S tart: August 28, 2024 End: August 28, 2024 Goals (unrecognized section and content) Goals [...] BE BASED ON THE PRIMARY CLINICAL RECORDS. [facility]. provides no warranty or guarantee of the accuracy or completeness of information in this document.
[2024-10-12 14:51] LABS: Basophils Absolute Auto 0.1 10^3/uL (0.0-0.1); Basophils Percent Auto 0.5 % (0.2-2.0); Eosinophils Absolute Auto 0.2 10^3/uL (0.0-0.7); Eosinophils Percent Auto 1.9 % (0.9-7.0); Hematocrit 40.1 % (36.0-48.0); Hemoglobin 13.7 g/dL (12.0-16.0); Immature Granulocytes Abs Auto 0.03 10^3/uL (0.00-0.03); Immature Granulocytes Pct Auto 0.3 % (0.0-0.5); Lymphocytes Absolute Auto 2.9 10^3/uL (1.2-3.8); Lymphocytes Percent Auto 31.4 % (20.5-60.0); Mean Corpuscular HGB Conc 34.2 g/dL (29.9-35.2); Mean Corpuscular Hemoglobin 30.6 pg (26.7-34.0); Mean Corpuscular Volume 89.7 fL (81.0-99.0); Mean Platelet Volume 9.4 fL (9.5-13.5); Monocytes Absolute Auto 0.4 10^3/uL (0.3-0.8); Monocytes Percent Auto 4.1 % (1.7-12.0); Neutrophils Absolute Auto 5.7 10^3/uL (1.4-6.5); Neutrophils Percent Auto 61.8 % (43.0-75.0); Platelet Count 224 10^3/uL (150-450); Red Blood Count 4.47 10^6/uL (4.20-5.40); Red Cell Distribution Width 13.3 % (11.0-15.0); White Blood Count 9.2 10^3/uL (4.0-11.0)
[2024-10-12 14:56] LABS: Erythrocyte Sedimentation Rate 46 mm/hr (<=20)
[2024-10-12 15:00] LABS: Anion Gap 11.6; BUN Creatinine Ratio 13.7; Carbon Dioxide 26.8 mmol/L (21.0-32.0); Chloride 104 mmol/L (98-107); Estimated GFR (African America >60 (>=60 mL/min/1.73m^2); Estimated GFR (Non-African Ame >60 (>=60 mL/min/1.73m^2); Glucose 89 mg/dL (74-106); Potassium 4.4 mmol/L (3.5-5.1); Sodium 138 mmol/L (136-145)
[2024-10-12 15:01] LABS: C Reactive Protein 1.07 mg/dL (<=0.50)
[2024-10-12 15:38] LABS: Percent Iron Saturation 24.1 %
== END 2024-10-13 08:33 | disposition home or self-care (01) ==
LOC: HEMC 07:44
PROVIDERS: PCP Nurse Practitioner Family; Visit Provider Internal Medicine Hematology & Oncology
DX: D50.9 Iron deficiency anemia, unspecified (principal); D72.829 Elevated white blood cell count, unspecified; K90.9 Intestinal malabsorption, unspecified; D64.9 Anemia, unspecified; R53.83 Other fatigue; Z90.49 Acquired absence of other specified parts of digestive tract; Z80.3 Family history of malignant neoplasm of breast; K21.9 Gastro-esophageal reflux disease without esophagitis; K76.0 Fatty (change of) liver, not elsewhere classified; R00.0 Tachycardia, unspecified; I10 Essential (primary) hypertension; E28.2 Polycystic ovarian syndrome; Z87.440 Personal history of urinary (tract) infections
CPT/HCPCS: 36415; 80048; 82728; 83540; 83550; 85025; 85652; 86140; G0463

== ENCOUNTER 2024-11-03 17:23 | Outpatient (REF) | payer OTHER, SELFPAY | END 2024-11-03 17:24 | disposition home or self-care (01) | LOC: LAB 17:23 | PROVIDERS: PCP Nurse Practitioner Family; Visit Provider Obstetrics & Gynecology | DX: Z01.419 Encounter for gynecological examination (general) (routine) without abnormal findings (principal) | CPT/HCPCS: 87624; 88175 ==

== ENCOUNTER 2024-11-18 10:27 | Outpatient (OUT) | payer OTHER, SELFPAY ==
--- NOTE | 2024-11-18 11:01 | P.CN_ITS ---
Consult Note: HPI Data of Consult Patient: known to practice within the last 3 years Requesting Physician: Bud Combs MD Primary Care Provider: CHRIS LOPEZ Consult Narrative Reason for consult: f/u Narrative: Ashly Mehta a pleasant 34 year old female presents for evaluation and management of low back pain. Patient has noticed this low back pain since a fall at work in 2018 where she injured her ankle and had to wear a boot, noticed the pain started after she stopped wearing the boot. Today rating pain 7/10 in low back, is intermittent. Pain increased with pushing, pulling, standing, walking, activity, decreased with sleep sitting and lying down. No numbness tingling or weakness. Has tried chiropractor care without success. failed to benefit from tylenol, motrin, celebrex, meloxicam, gabapentin, flexeril and baclofen. since last visit pt attended 6 weeks of formal PT without improvement in pain with standing and activity, finds mild benefit to myofascial pain. pt would like to workup chronic neck pain as well which is mild per pt. cc:: CC: Bud Combs MD Review of Systems ROS Status of ROS 10 or more systems reviewed and unremark able except as noted in history and below Musculoskeletal Reports: back pain, neck pain, extremity pain and muscle weakness PFSH PFSH Medical History Herpes genitalia ?A60.00 - Herpesviral infection of urogenital system, unspecified (ICD-10) Back pain ?M54.9 - Dorsalgia, unspecified (ICD-10) Arthritis ?M19.90 - Unspecified osteoarthritis, unspecified site (ICD-10) Anemia ?D64.9 - Anemia, unspecified (ICD-10) Depression ?F32.A - Depression, unspecified (ICD-10) Anxiety ?F41.9 - Anxiety disorder, unspecified (ICD-10) COVID-19 ?U07.1 - COVID-19 (ICD-10) Asthma ?J45.909 - Unspecified asthma, uncomplicated (ICD-10) Seizures ?R56.9 - Unspecified convulsions (ICD-10) GERD (gastroesophageal reflux disease) ?K21.9 - Gastro-esophageal reflux disease without esophagitis (ICD-10) Sleep apnea ?G47.30 - Sleep apnea, unspecified (ICD-10) Palpitations ?R00.2 - Palpitations (ICD-10) Prediabetes ?R73.03 - Prediabetes (ICD-10) Hypertension ?I10 - Essential (primary) hypertension (ICD-10) PCOS (polycystic ovarian syndrome) ?E28.2 - Polycystic ovarian syndrome (ICD-10) Abnormal uterine bleeding (AUB) ?N93.9 - Abnormal uterine and vaginal bleeding, unspecified (ICD-10) Menorrhagia ?N92.0 - Excessive and frequent menstruation with regular cycle (ICD-10) Surgical History History of laparoscopy ?Z98.890 - Other specified postprocedural states (ICD-10) History of colposcopy ?Z98.890 - Other specified postprocedural states (ICD-10) History of wisdom tooth extraction ?K08.409 - Partial loss of teeth, unspecified cause, unspecified class (ICD- 10) History of cholecystectomy ?Z90.49 - Acquired absence of other specified parts of digestive tract (ICD- 10) Family History Other Family history of heart disease Family history of stroke Social History Within the past year, how often did you have a drink containing alcohol: monthly or less Smoking status: Never smoker 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 Highest level of school completed/degree received: Associate degree: occupation al, technical, vocational program Little interest or pleasure in doing things: not at all Feeling down, depressed, or hopeless: not at all Meds Home Medications and Allergies Home Medications ?Medication ?Instructions ?Recorded ?Confirmed ?Type albuterol sulfate 90 mcg/actuation 2 inh inhalation Q6H PRN shortness 01/17/23 04/14/24 History aerosol inhaler (ProAir HFA) of breath or wheezing metformin 500 mg tablet 500 mg PO BID 01/17/23 10/30/23 History valacyclovir 1 gram tablet 1,000 mg PO BID 06/25/23 11/18/24 History lamotrigine 25 mg tablet (Lamictal) 25 mg PO Q12H 10/30/23 04/14/24 History duloxetine 60 mg capsule,delayed 120 mg PO .HS 04/14/24 11/18/24 History release lisinopril 10 mg tablet mg 04/14/24 History methenamine hippurate 1 gram tablet g 11/18/24 History multivitamin 1 tab PO DAILY 11/18/24 11/18/24 History pantoprazole 40 mg tablet,delayed mg PO 11/18/24 History release Allergies Allergy/AdvReac Type Severity Reaction Status Date / Time amoxicillin Allergy Rash Verified 06/24/24 02:46 cefaclor Allergy Rash Verified 06/24/24 02:46 erythromycin base Allergy Hives Verified 06/24/24 02:46 Exam Constitutional Documenting provider has reviewed patient's vital signs: yes Common normals: no apparent distress, oriented x3, healthy appearing, alert and well nourished General appearance: cooperative Nutritional appearance: obese HENMT Common normals: normocephalic, hearing grossly normal bilaterally and moist oral mucous membranes Head and scalp: normocephalic Eye Common normals: PERRL Pupil: PERRL Neck & C-Spine Common normals: full ROM General: normal visual inspection Cervical spine: cervical ROM normal and pain with cervical ROM Chest Common normals: inspection of chest normal Respiratory Common normals: normal respiratory effort, no retractions and no use of accessory muscles Back & Pelvis Lumbar spine/lower back: ROM limited, pain with ROM and straight leg raise positive left Sacroiliac joints: SI joint(s) abnormal (bilateral marissa, thigh thrust) Other: altered sensation to bilateral L4/5/S1 pattern strength 5/5 in BLE Extremity Common normals: normal to inspection and full ROM Other: tenderness over bilateral GTB Neuro Common normals: oriented x3, CN's II-XII intact bilaterally, moves all extremities, no focal motor deficits, no sensory deficits noted, deep tendon reflexes 2+ bilaterally and gait normal Sensorium/orientation: alert Motor exam: strength 5/5 throughout and no movement abnormalities noted Psych Common normals: mental status grossly normal, thought process normal, cooperative, affect normal, speech normal and activity/motor behavior normal Speech: normal speech Thought process: normal thought process Results Additional Findings Additional findings: If on a controlled substance or opioids, I have checked an OARRS report on this patient and there are no aberrancies noted in the prescribing history.??If on a controlled substance or opioid a drug screen was completed and reviewed within the last year, and if there has not been a drug screen completed we ordered one today to monitor higher risk, state monitored pain medication use. As part of providing excellent, safe, comprehensive care, the following was completed at our patient's visit: 1. A medication reconciliation and review to ensure accurate knowledge of current/active medications, including asking our patients to inform us about any yiup-cyk-zsagajc medications or herbal remedies/nutritional supplements/alternative remedies. 2. A review to specifically ensure our patients have had annual screening for screening for depression, screening for tobacco use, and screening for unhealthy alcohol use. For concerning screenings had a discussion with the patient, provided patient education, and recommended follow-up with primary care provider when appropriate. If patient noted with a risk of falling, they received education on strength, gait, and balance training to prevent future risk of falling. Assessment and Plan Assessment and Plan (1) Lumbar degenerative disc disease: (2) Lumbar radiculopathy: (3) Lumbar stenosis with neurogenic claudication: (4) Greater trochanteric bursitis: Qualifiers: Laterality: unspecified laterality Qualified Code(s): M70.60 - Trochanteric bursitis, unspecified hip (5) Myofascial pain syndrome: (6) Lumbar spondylosis: (7) Chronic neck pain: Plan update lumbar MRI without contrast to evaluate chronic low back pain, lumbar radiculopathy, and lumbar DDD unresponsive to greater than 6 weeks of provider guided HEP and PT, progressive care unit registered nurse, NSAIDs, tylenol, gabapentin. PT for chronic neck pain per pt request, defer cervical xray defer medication management continue HEP as tolerated continue otc nsaids and tylenol PRN f/u to review lumbar MRI
== END 2024-11-18 10:28 | disposition home or self-care (01) ==
LOC: PM 10:28
PROVIDERS: PCP Nurse Practitioner Family; Visit Provider Anesthesiology
DX: M51.369 Other intervertebral disc degeneration, lumbar region without mention of lumbar back pain or lower extremity pain (principal); M54.16 Radiculopathy, lumbar region; M48.062 Spinal stenosis, lumbar region with neurogenic claudication; M70.60 Trochanteric bursitis, unspecified hip; M79.18 Myalgia, other site; M47.816 Spondylosis without myelopathy or radiculopathy, lumbar region; M54.2 Cervicalgia
CPT/HCPCS: G0463

== ENCOUNTER 2024-11-24 12:59 | Outpatient (RCR) | payer OTHER, SELFPAY | END 2025-01-08 09:25 | disposition home or self-care (01) | LOC: PT 12:59 | PROVIDERS: PCP Nurse Practitioner Family; Visit Provider Nurse Practitioner | DX: M54.2 Cervicalgia (principal); M79.10 Myalgia, unspecified site | CPT/HCPCS: 97014; 97110; 97140; 97163 ==

== ENCOUNTER 2024-11-26 08:58 | Outpatient (OUT) | payer OTHER, SELFPAY ==
--- NOTE | 2024-11-26 09:03 | MR_ITS ---
[place] [id number] Patient Name: DIMITRY PACK MRN: [id number] date: 1990 Sex: F Assigned Patient Location: MRI Current Patient Location: MRI Accession/Order Number: [id number] Exam Date: 11/26/2024 10:05 Report Date: 11/26/2024 10:12 At the request of: BARBIE NUNO NP Procedure: MR lumbar spine wo con MRI Lumbar Spine withoutcontrast TECHNIQUE: Multiplanar T1 and T2-weighted imaging of lumbar spine obtained without contrast. HISTORY: Chronic lumbar pain for 10 years. Right leg weakness. COMPARISON: None The last fully segmented vertebral pair is operationally defined as L5/S1. POST SURGERY CHANGES: None BONE MARROW INFILTRATION: Decreased T1 and T2 signal changes throughout the bone marrow of the lumbar spine. BONE MARROW EDEMA: None BONY ALIGNMENT: Adequate bony alignment identified. SPINAL CANAL: As below LUMBAR FRACTURE: None BONY LESIONS: None KIDNEYS: No hydronephrosis is identified. AORTA: No aortic aneurysm is seen. CONUS MEDULLARIS : The distal spinal cord is in adequate position without abnormality. Additional findings CONJOINED NERVE ROOT: None Lower thoracic level: Unremarkable L1-2 :Unremarkable L2-3: Mild diffuse disc bulge. Mild central canal stenosis. Posterior element hypertrophy. Mild bilateral neural foraminal narrowing L3-4: Mild diffuse disc bulge. No central canal stenosis. Posterior element hypertrophy. Mild bilateral neural foraminal narrowing L4-5: Mild diffuse disc bulge. Mild central canal stenosis. Posterior element hypertrophy. Mild bilateral neural foraminal narrowing. L5-S1: Unremarkable MR/MR lumbar spine wo con IMPRESSION: Multilevel discovertebral degenerative changes. Diffuse decreased T1 and T2 signal changes of the bone marrow. infiltrative changes/marrow fatty reconversion changes should be considered. Malignancy should be excluded. May represent lymphoproliferative disorder. Pre-MRI plain film assessment: None Impression dictated by: Wing More M.D.11/26/2024 10:12 AM Dictation Location: [facility] Electronically authenticated by: [id number] Y Date: 11/26/2024 10:12
--- OUTSIDE RECORDS SUMMARY | 2024-11-26 09:15 | XMS_ITS | CCD ---
Author Organization [facility] Team Providers Care Electric Motorman Name Role Phone BRENT KINNEY Referring Unavailable BRENT KINNEY Attending Unavailable BRENT KINNEY Admitting Unavailable Michelle Ernandez Unavailable VIOLA, DR NUR Consulting Unavailable HOUSE, DR NUR Admitting Unavailable HOUSE, DR NUR Primary Care Unavailable HOUSE, DR NUR Attending Unavailable ZIEBER, DR SUGEY Ibrahim Consulting Unavailable CELESTINA ., DR COLLADO Admitting Unavailable HOUSE, DR NUR Primary Care Unavailable CELESTINA ., DR COLLADO Attending Unavailable CELESTINA ., DR COLALDO Consulting Unavailable HOUSE, DR NUR Consulting Unavailable HOUSE, DR NUR Primary Care Unavailable HOUSE, DR NUR Admitting Unavailable HOUSE, DR NUR Attending Unavailable CELESTINA ., DR COLLADO Admitting Unavailable HOUSE, DR NUR Primary Care Unavailable CELESTINA ., DR COLLADO Attending Unavailable CELESTINA ., DR COLLADO Consulting Unavailable ZIEBER, DR SUGEY Ibrahim Consulting Unavailable CELESTINA ., DR COLLADO Admitting Unavailable HOUSE, DR NUR Primary Care Unavailable CELESTINA ., DR COLLADO Attending Unavailable CELESTINA ., DR COLLADO Consulting Unavailable HOUSE, DR NUR Primary Care Unavailable CELESTINA ., DR COLLADO Attending Unavailable CELESTINA ., DR COLLADO Consulting Unavailable CELESTINA ., DR COLLADO Admitting Unavailable Casandra Hassan Unavailable Nely Cruz Unavailable Celio Mullins Unavailable Manisha Marc Unavailable ROSITA Macr Primary Care Provider ROSITA Marc Attending Provider DO Celio Mullins Attending Provider [phone] ROSITA Marc Primary Care Provider MD Clinton Frazier Attending Provider ROSITA Marc Attending Provider ROSITA Marc Primary Care Provider DO Celio Mullins Attending Provider MD Edward Gilmore Attending Provider [phone] MD Clinton Frazier Attending Provider ROSITA Marc Primary Care Provider MD Edward Gilmore Attending Provider DO Gwen Cox Attending Provider ROSITA Marc Primary Care Provider MD Edward Gilmore Attending Provider ROSITA Marc Attending Provider DO Gwen Cox Attending Provider [phone] ROSITA Marc Primary Care Provider MD Edward Gilmore Attending Provider ROSITA Marc Primary Care Provider MD Edward Gilmore Attending Provider Garret CROWLEY, Andrius Vytautcortez Attending Unavailable Giedrakatalina CROWLEY, Andrius Vytautas Attending Unavailable Garret CROWLEY, Andrius Vytautas Attending Unavailable Giwill CROWLEY, Andrius Vytautas Attending Unavailable ROSITA Mrac Primary Care Provider MD Edward Gilmore Attending Provider ROSITA Marc Primary Care Provider MD Edward Gilmore Attending Provider ROSITA Hassan Attending Provider [phone] ROSITA Marc Primary Care Provider MD Edward Gilmore Attending Provider ROSITA Hassan Attending Provider Thaddeus Rod MD Primary Care Provider Denyrbgareth CHARHOUSE WORKER, Manisha Primary Care Provider Deirdre CROWLEY, Edward Attending Provider Casandra Hassan APRN Attending Provider Manisha Marc APRN Attending Provider Tari CHARHOUSE WORKER, Manisha Primary Care Provider Edward Gilmore MD Attending Provider NO FAMILY, PHYSICIAN Primary Care Provider Unava ilable Ly DO, Hilaria L Attending Provider Denyrbgareth BECKER, Manisha Primary Care Provider Edward Gilmore MD Attending Provider DenyrbManisha servin APRN Attending Provider Edward Gilmore MD Attending Provider Denyrbacher Manisha Primary Care Unavailable Edward Gilmore Attending Unavailab le Edward Gilmore Admitting Unavailab le Casandra Hassan Admitting Unavailable Casandra Hassan Attending Unavailable Manisha Marc Attending Unavailable Denyrbacher, Manisha Admitting Unavailable NO FAMILY, PHYSICIAN Primary Care Unavailable DenyrbManisha servin Attending Unavailable Rohrbacher, Manisha Admitting Unavailable Rohrbacher, Manisha Primary Care Unavailable Ly, Hilaria L Attending Unavailable Ly, Hilaria L Admitting Unavailable MARKO OSCAR Attending Unavailable CONSUELO LOVE Attending Unavailable MELA ANDERSON Attending Unavailable GWEN COX Attending Unavailable MANISHA MARC Referring Unavailab MARIO Garcia Attending Unavailable GWEN COX Referring Unavailable CONSUELO LOVE Attending Unavailable Hilaria Burgos DO Attending Provider [phone] Manisha Marc APRN Primary Care Provider Edward Gilmore MD Attending Provider [phone] Allergies Allergy Classification Reported Allergen(s) Allergy Type Date of Onset Reaction(s) Facility (20 sources) Amoxicillin; Translations: [AMOXICILLIN] Drug Allergy 07-08-20 16 rash [facility] Repository (20 sources) Cefaclor; Translations: [CEFACLOR] Drug Allergy 04-14-20 15 [facility] Repository (20 sources) Erythromycin; Translations: [ERYTHROMYCIN] Drug Allergy 04-14-20 15 hives [facility] Repository (19 sources) Cefaclor; Translations: [Ceclor] Drug Allergy 04-17-20 15 [facility] Repository (20 sources) Erythromycin Drug Allergy 04-17-20 15 Unknown Reaction, [facility] Repository (20 sources) Cephalosporins (Antibiotic); Translations: [Cephalosporins] Allergy to substance 12-10-19 22 Unknown Reaction, Rash [facility] (2 sources) Lactulose Drug Allergy 02-12-20 20 Unknown Reaction [facility] (1 source) Erythromycin Drug Allergy 09-27-19 25 [facility] Repository Medications Current Medications Medication Drug Class(es) Dates Sig (Normalized) Sig (Original) [id number] 200 actuat albuterol 0.09 mg/actuat metered dose [...] for Shortness Of Breath Or Wheezing February 12, 2020 12:00am take 2 puff(s) by in halation every six hours albuterol HFA 90 mcg/act inhaler Inhale 2 puffs every 6 (six) hours if needed. Active take 1 puff(s) by in halation every four hours as needed Ventolin HFA 108 (90 Base) MCG/ACT 1 puff as needed Inhalation every 4 hrs Active baclofen 10 mg oral tablet (20 sources) gamma-Aminobutyric Acid-ergic Agonist Start: 06-15-2024 take 1 tablet by mouth once daily Baclofen 10 mg tablet Active 10 MG PO Daily June 15, 2024 12:00am Start: 06-15-2024 Baclofen Activ e MG PO June 14, 2024 11:00pm Start: 06-15-2024 Baclofen Activ e MG PO June 15, 2024 12:00am betamethasone 0.5 mg/ml / clotrimazole 10 mg/ml topical cream (2 sources) Azole Antifungal, Corticosteroid Start: 11-03-2024 End: 11-10-2024 clotrimazole-betamethasone (Lotrisone) cream Indications: Vaginal itching Apply 1 application topically Daily for 7 days Apply to affected area daily for 7 days 45 g 11/03/2024 11/10/2024 Active doxycycline hyclate 100 mg oral tablet (3 sources) Tetracycline-clas s Drug Start: 06-29-2023 take 1 tablet by [...] 180 90 April 05, 2024 1:28pm Start: 11-26-2023 End: 04-05-2024 take 120 mg [...] 17, 2020 12:00am November 26, 2023 8:33am Start: 02-17-2020 End: 11-26-2023 take 90 mg [...] for pain or fever October 01, 2023 1:00am [employer] capsule Orally Once a day PRN; Note: Source Status: RefillPRN; Refills: 0; Provider: Tari Garnett take 1 capsule by mo ut once daily as needed Gabapentin 300 MG 1 capsule Orally Once a day PRN for 30 days PRN Active ibuprofen 800 mg oral tablet (10 sources) Nonsteroidal Anti-inflammatory Drug Start: 06-15-2024 take 1 tablet by mouth twice daily as needed for pain Ibuprofen 800 mg tablet Active 800 MG PO Twice daily as needed for fever or pain June 15, 2024 12:00am Start: 06-15-2024 Ibuprofen Acti ve MG PO June 14, 2024 11:00pm lamoTRIgine 25 mg oral tablet (20 sources) Mood Stabilizer, Anti-epileptic Agent Start: 10-01-2023 take 1 tablet by mouth twice daily Lamotrigine 25 mg tablet Active 25 MG PO Twice daily October 01, 2023 1:00am lisinopril 10 mg oral tablet (20 sources) Angiotensin Converting Enzyme Inhibitor Start: 11-26-2023 End: 09-29-2024 take 1 tablet by mouth once daily Lisinopril 10 mg tablet Active 10 MG PO Daily 90 90 September 29, 2024 1:08pm Start: 10-01-2023 End: 11-26-2023 take 10 mg by mouth once daily Lisinopril Discontinued 10 MG PO Daily October 01, 2023 9:14am November 26, 2023 7:34am Start: 10-01-2023 End: 11-03-2023 take 1 tablet by mouth once daily Lisinopril 10 mg tablet Discontinued 10 MG PO Daily October 01, 2023 1:00am November 03, 2023 2:25pm Start: 05-01-2023 End: 11-26-2023 take 10 mg by mouth once daily Lisinopril 20 mg tablet Discontinued 10 MG PO Daily October 01, 2023 10:14am November 26, 2023 8:34am Start: 12-07-2021 End: 10-01-2023 take 1 tablet by mouth once daily Lisinopril 20 mg tablet Discontinued 20 MG PO Daily December 07, 2021 12:00am October 01, 2023 10:18am End: 11-03-2024 LISINOPRIL PO Lisinopril Discontinued LISINOPRIL PO Li sinopril Active take 1 [...] Daily at bedtime October 01, 2023 10:15am Start: 10-01-2023 End: 10-01-2023 take 1 mg [...] Ac tive meloxicam 15 mg oral tablet (20 sources) Nonsteroidal Anti-inflammatory Drug Start: 06-15-2024 take 1 tablet by mouth once daily Meloxicam 15 mg tablet Active 15 MG PO Daily June 15, 2024 12:00am Start: 06-15-2024 Meloxicam Acti ve MG PO [...] hr Active 1000 MG PO Daily November 26, 2023 12:00am Start: 11-26-2023 take 1000 mg by mout [...] Status: Taking; Provider: Tari Dyer ( ) End: 11-03-2024 metFORMIN, OSM, (Fortamet) 5 00 MG 24 hr tablet metFORMIN HCl 11/03/2024 Discontinued Metformin & Diet Manage Prod (5 sources) Metformin & Diet Manage Prod Active methenamine hippurate 1000 mg oral tablet (4 sources) Start: 09-27-2024 Methenamine Hippurate 1 gram tablet Active 1 GM PO Twice daily September 27, 2024 1:00am Multiple Vitamins-Minerals (MULTI COMPLETE PO) (13 sources) Multiple Vitamins-Minerals (MULTI COMPLETE PO) Multi Complete Active Multivitamin preparation (20 sources) Start: 12-07-2021 take 1 tablet by mouth once daily Multivitamin Active 1 TAB PO Daily December 07, 2021 12:00am Start: 12-07-2021 take 1 tablet by miranda th once daily Multivitamin Active 1 TAB PO Daily December 06, 2021 11:00pm Multivitamin Act rafal Multivitamin Tablet (7 sources) Start: 12-07-2021 take 1 tablet by mouth once daily Multivitamin Tablet Active 1 TAB PO Daily December 07, 2021 12:00am Start: 12-07-2021 take 1 tablet by miranda th once daily Multivitamin Tablet Active 1 TAB PO Daily December 06, 2021 11:00pm ondansetron 4 mg disintegrating oral tablet (5 sources) Serotonin-3 Receptor Antagonist Start: 09-27-2024 take 1 tablet by mouth every eight hours as needed for nausea and vomiting Ondansetron 4 mg tablet,disintegrating Active 4 MG PO Every 8 hours as needed for nausea and vomiting 10 September 27, 2024 1:00am Start: 07-07-2023 take 1 tablet by miranda th three times daily as needed Zofran 4 MG 1 tablet Orally tid prn ODT Jun, Active pantoprazole 40 mg delayed release oral tablet (7 sources) Proton Pump Inhibitor Start: 08-19-2024 take 1 tablet by mouth once daily Pantoprazole 40 mg tablet,delayed release (DR/EC) Active 40 MG PO Daily August 19, 2024 1:00am valACYclovir 1000 mg oral tablet (20 sources) [...] PO Daily as needed October 01, 2023 10:15am January 08, 2024 11:49am Start: 02-12-2020 End: 02-12-2020 take 1 mg by mouth once daily Valacyclovir 1 gram tabl et Discontinued 1 MG PO Daily February 12, 2020 12:00am February 12, 2020 8:16pm Start: 02-12-2020 End: 02-12-2020 take 1 mg by mouth once daily Valacyclovir Discontinue d 1 MG PO Daily February 11, 2020 11:00pm February 12, 2020 7:16pm take 1 tablet by miranda th once daily valACYclovir (Valtrex) 500 MG tablet Take 500 mg by mouth Daily Active valACYclovir HCl 1 GM TAKE 1 TABLET BY MOUTH TWICE DAILY FOR 10 DAYS (IN THE MORNING AND BEFORE BEDTIME) Oral for 10 Days PRN Active valACYclovir HCl 1 GM TAKE 1 TABLET BY MOUTH TWICE DAILY FOR 10 DAYS (IN THE MORNING AND BEFORE BEDTIME) Oral for 10 Days PRN Active Completed/Discontinued Medications Medication Drug Class(es) Dates Sig (Normalized) Sig (Original) ARIPiprazole 5 mg oral tablet (20 sources) Atypical Antipsychotic Start: 03-05-2020 End: 12-07-2021 take 1 tablet by mouth once daily Aripiprazole 5 mg Tablet Discontinued 5 MG PO Daily 30 March 05, 2020 12:00am December 07, 2021 10:45am Savanna Masterson-Cate Corrales Active 24 hr buPROPion hydrochloride 150 mg extended release oral tablet (18 sources) Aminoketone Start: 02-12-2020 End: 02-17-2020 take 1 tablet by mouth once daily Bupropion Hcl 150 mg tablet extended release 24 hr Discontinued 150 MG PO Daily February 12, 2020 12:00am February 17, 2020 11:57am cariprazine 1.5 mg oral capsule (15 sources) Atypical Antipsychotic Start: 10-10-2023 End: 11-03-2024 Vraylar 1.5 MG capsule 10/10/2023 11/03/2024 Discontinued take 1 capsule by mo [facility] every twenty-four hours Vraylar 1.5 MG 1 capsule Orally Once a day Active ciprofloxacin 250 mg oral tablet (17 sources) Quinolone Antimicrobial Start: 08-12-2024 End: 08-19-2024 take 1 tablet by mouth twice daily Ciprofloxacin Hcl (Cipro) 250 mg tablet Discontinued 250 MG PO Twice daily 05 22August 12, 2024 1:00am August 19, 2024 10:00am Start: 06-21-2024 End: 11-03-2024 Ciprofloxacin Hcl 500 mg tab let Discontinued 500 MG PO June 21, 2024 1:00am July 22, 2024 11:48am citalopram 40 mg oral tablet (20 sources) Serotonin Reuptake Inhibitor Start: 02-12-2020 End: 02-17-2020 Citalopram 40 mg tablet Discontinued MG TABLET February 12, 2020 12:00am February 12, 2020 8:18pm Start: 02-12-2020 End: 02-12-2020 Citalopram Discontinued MG T ABLET February 11, 2020 11:00pm February 12, 2020 7:18pm clindamycin 150 mg oral capsule (13 sources) Lincosamide Antibacterial Start: 08-28-2024 End: 09-27-2024 take 3 capsules by mouth three times daily Clindamycin Hcl 150 mg capsule Discontinued 450 MG PO Three times daily 63 August 28, 2024 1:00am September 27, 2024 4:43pm Start: 06-15-2024 End: 07-22-2024 Clindamycin Hcl 300 mg capsu le Discontinued MG PO June 15, 2024 12:00am July 22, 2024 11:48am Start: 06-15-2024 Clindamycin Hc l Active MG PO June 14, 2024 11:00pm diazePAM 10 mg oral tablet (13 sources) Benzodiazepine Start: 09-25-2023 End: 11-03-2024 take 1 tablet by mouth every hour diazePAM (Valium) 10 MG tablet take 1 tablet by mouth 1 hour prior to procedure 09/25/2023 11/03/2024 Discontinued ferrous sulfate 325 mg oral tablet (20 sources) Start: 11-04-2023 End: 11-03-2024 take 1 tablet by mouth once daily Ferrous Sulfate 325 mg (65 mg iron) tablet Discontinued 325 MG PO Daily 90 90 April 22, 2024 12:00am August 09, 2024 4:57pm fluocinonide 0.5 mg/ml topical solution (13 sources) Corticosteroid Start: 02-18-2024 End: 11-03-2024 fluocinonide (Lidex) 0.05 % external solution apply 3 TO 4 drops to scalp once daily ON FRIDAY THROUGH FRIDAY then off WEEKENDS 02/18/2024 11/03/2024 Discontinued fluticasone propionate 0.05 mg/actuat metered dose nasal spray (20 sources) Corticosteroid Start: 10-01-2023 End: 11-26-2023 Fluticasone Propionate 50 mcg/actuation spray,suspension Discontinued 2 SPRAY INTRANASAL Daily October 01, 2023 1:00am November 26, 2023 8:33am Start: 06-29-2023 End: 11-03-2024 take 2 spray(s) nasal route once daily fluticasone (Flonase) 50 MCG/ACT nasal spray Administer 2 sprays into each nostril Daily 06/29/2023 11/03/2024 Discontinued Start: 06-29-2023 take 2 spray(s) nasa l [...] times daily as needed for Anxiety December 07, 2021 12:00am October 01, 2023 [...] succinate 50 mg extended release oral tablet (18 sources) beta-Adrenergic Toña Start: 02-12-2020 End: 12-07-2021 take 1 tablet by mouth once daily Metoprolol Succinate 50 mg tablet extended release 24 hr Discontinued 50 MG PO Daily February 12, 2020 12:00am December 07, 2021 10:46am niacin 500 mg oral tablet (13 sources) Nicotinic Acid Start: 11-26-2023 End: 04-21-2024 Niacin (Inositol Niacinate) 500 mg tablet Discontinued TAB PO November 26, 2023 12:00am April 21, 2024 2:37pm Start: 11-26-2023 End: 04-21-2024 Niacin (Inositol Niacinate) Discontinued TAB PO November 25, 2023 11:00pm April 21, 2024 1:37pm nitrofurantoin, macrocrystals 25 mg / nitrofurantoin, monohydrate 75 mg oral capsule (11 sources) Nitrofuran Antibacterial Start: 06-15-2024 End: 06-21-2024 take 1 capsule by mouth every twelve hours at mealtime Nitrofurantoin Monohyd/M-Cryst (Macrobid) 100 mg capsule Discontinued 100 MG PO Every 12 hours 05 22June 15, 2024 12:00am June 21, 2024 12:32pm must administer with a meal/food Start: 05-31-2021 take 1 capsule by mo [facility] every twelve hours Macrobid 100 MG 1 cap(s) Orally bid for 5 day(s) May, Active phenazopyridine hydrochloride 200 mg oral tablet (16 sources) Start: 08-09-2024 End: 08-19-2024 take 1 tablet by mouth three times daily Phenazopyridine (Pyridium) 200 mg tablet Discontinued 200 MG PO Three times daily August 09, 2024 1:00am August 19, 2024 10:01am Start: 06-15-2024 End: 06-21-2024 take 1 tablet by mouth three times daily as needed for pain Phenazopyridine (Pyridium) 200 mg tablet Discontinued 200 MG PO Three times daily as needed for pain 04 20June 15, 2024 12:00am June 21, 2024 12:24pm Start: 05-31-2021 [facility] Pyridium 200 MG 1 tablet after meals Orally Three times a day for 2 day(s) May, Active polysaccharide iron complex 391 mg oral capsule (13 sources) Start: 03-17-2024 End: 03-17-2025 take 1 capsule by mouth once daily iron polysaccharides (ProFe) 391.3 (180 Fe) MG capsule Indications: Low iron Take 1 capsule (391.3 mg) by mouth Daily 30 capsule 6 03/17/2024 11/03/2024 Discontinued predniSONE 20 mg oral tablet (5 sources) Start: 06-29-2023 take 1 tablet by mouth every twelve hours predniSONE 20 MG 1 tablet Orally bid for 5 day(s) Jun, Not-Taking Start: 06-17-2021 take 1 tablet by miranda th every twelve hours predniSONE 20 MG 1 tablet Orally bid for 5 day(s) May, Active Sod Picosulf-Mag Ox-Citric Ac (5 sources) Start: 07-20-2024 End: 08-19-2024 take 1 dose by mouth once daily Sod Picosulf-Mag Ox-Citric Ac (Clenpiq) 10 mg-3.5 gram- 12 gram/175 mL solution Discontinued 175 ML PO Daily 350 0 July 20, 2024 1:00am August 19, 2024 10:01am take first dose at 3PM evening before colonoscopy; 2nd dose at 9pm the night before colonoscopy Start: 07-20-2024 End: 08-19-2024 take 1 dose by mouth once daily Sod Picosulf-Mag Ox-Citric Ac (Clenpiq) 10 mg-3.5 gram- 12 gram/175 mL solution Discontinued 175 ML PO Daily 350 0 July 20, 2024 12:00am August 19, 2024 9:01am take first dose at 3PM evening before colonoscopy; 2nd dose at 9pm the night before colonoscopy sulfamethoxazole 800 mg / trimethoprim 160 mg oral tablet (5 sources) Dihydrofolate Reductase Inhibitor Antibacterial, Sulfonamide Antimicrobial Start: 08-09-2024 End: 08-12-2024 take 1 tablet by mouth twice daily Sulfamethoxazole-Trimethoprim (Bactrim Ds) 800-160 mg tablet Discontinued 1 TAB PO Twice daily 10 August 09, 2024 1:00am August 12, 2024 9:45am ubidecarenone 200 mg oral capsule (13 sources) Start: 11-26-2023 End: 04-21-2024 take 10 capsules by mouth once daily Coenzyme Q10 200 mg capsule Discontinued 200 MG PO Daily November 26, 2023 12:00am April 21, 2024 2:36pm Problems Active Problems Problem Classification Problem Date Documented Da te Episodic/Chronic Administrative/social admission (20 sources) Dietary counseling and surveillance; Translations: [Other specified counseling] Episodic Anxiety disorders (20 sources) Anxiety; Translations: [Anxiety [...] disorder, unspecified type] 08-18-2024 Chronic Cardiac dysrhythmias (17 sources) Palpitations; Translations: [Palpitations] 11-03-2023 Episodic Chronic obstructive pulmonary disease and bronchiectasis (5 sources) Acute exacerbation of chronic bronchitis; Translations: [Bronchitis, chronic with acute exacerbation] Chronic Chronic obstructive pulmonary disease and bronchiectasis (1 source) Bronchitis, not specified as acute or chronic Episodic Conditions associated with dizziness or vertigo (17 sources) Lightheadedness; Translations: [Dizziness and giddiness] 11-03-2023 Episodic Deficiency and other anemia (10 sources) Iron deficiency anemia; Translations: [Iron deficiency anemia, unspecified] 06-08-2024 Episodic Deficiency and other anemia (4 sources) Iron deficiency anemia, unspecified; Translations: [Iron deficiency anemia, unspecified] Onset: 08-19-2024 08-24-2024 Episodic Delirium, dementia, and amnestic and other cognitive disorders (2 sources) Cognitive disorder; 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] 08-18-2024 Chronic Diabetes mellitus without complication (20 sources) Impaired fasting glucose; Translations: [Prediabetes] Episodic Epilepsy; convulsions (20 sources) Seizure disorder; Translations: [Epilepsy, unspecified, not intractable, without status epilepticus] Onset: 05-31-2024 Chronic Essential hypertension (20 sources) Essential hypertension; Translations: [Essential (primary) hypertension] Onset: 02-11-2023 Chronic Genitourinary symptoms and ill-defined conditions (20 sources) Dysuria; Translations: [Hematuria, unspecified] Onset: 06-03-2018 Resolved: 05-31-2021 Episodic Headache; including migraine (20 sources) Refractory migraine without aura; Translations: [Migraine without aura, intractable, without status migrainosus] Chronic Immunizations and screening for infectious disease (9 sources) Contact with and (suspected) exposure to other viral communicable diseases; Translations: [Encounter for screening for human papillomavirus (HPV)] Onset: 06-17-2021 Resolved: 07-06-2021 Episodic Malaise and fatigue (15 sources) Fatigue; Translations: [Other fatigue] 04-22-2024 Episodic Menstrual disorders (20 sources) Amenorrhea; Translations: [Amenorrhea, unspecified] Onset: 03-07-2022 Chronic Mood disorders (20 sources) Recurrent major depression in partial remission; Translations: [Major depressive disorder, recurrent, in partial remission] Onset: 05-31-2024 Chronic Nausea and vomiting (1 source) Nausea with vomiting, unspecified Episodic Nutritional deficiencies (13 sources) Iron deficiency; Translations: [Iron deficiency] 11-04-2023 Episodic Other endocrine disorders (20 sources) Polycystic ovary syndrome; Translations: [Polycystic ovarian syndrome] 10-01-2023 Chronic Other endocrine disorders (10 sources) Polycystic ovarian syndrome; Translations: [Polycystic ovaries] Chronic Other endocrine disorders (13 sources) Polycystic ovary; Translations: [Polycystic ovarian syndrome] Onset: 02-11-2023 02-11-2023 Chronic Other female genital disorders (4 sources) Abnormal uterine and vaginal bleeding, unspecified; Translations: [ABNORMAL UTERINE VAGINAL BLEED UNS] Onset: 11-26-2022 Chronic Other female genital disorders (13 sources) Abnormal uterine bleeding; Translations: [Abnormal uterine and vaginal bleeding, unspecified] Onset: 02-11-2023 02-11-2023 Chronic Other female genital disorders (13 sources) Pain in female genitalia on intercourse; Translations: [Unspecified dyspareunia] Onset: 02-11-2023 02-11-2023 Chronic Other female genital disorders (2 sources) Vaginal discharge; Translations: [Other specified noninflammatory disorders of vagina] 11-03-2024 Episodic Other female genital disorders (2 sources) Pruritus of vagina; Translations: [Other specified noninflammatory disorders of vagina] 11-03-2024 Episodic Other gastrointestinal disorders (1 source) Diarrhea, unspecified Episodic Other liver diseases (14 sources) Fatty (change of) liver, not elsewhere classified; Translations: [Nonalcoholic fatty liver disease] 06-21-2024 Chronic Other lower respiratory disease (10 sources) Snoring; Translations: [Snoring] 04-22-2024 Episodic Other lower respiratory disease (10 sources) Apnea; Translations: [Apnea, not elsewhere classified] [...] chronic pain Chronic Other nervous system disorders (11 sources) Aphasia; Translations: [Aphasia] 04-21-2024 Chronic Other nervous system disorders (20 sources) Neuropathy; Translations: [Polyneuropathy, unspecified] Onset: 05-31-2024 04-12-2024 Chronic Other nervous system disorders (6 sources) Aphasia; Translations: [Aphasia] 04-21-2024 Chronic Other nervous system disorders (13 sources) Carpal tunnel syndrome of right wrist; Translations: [Carpal tunnel syndrome, right upper limb] Onset: 05-31-2024 05-31-2024 Chronic Other nervous system disorders (7 sources) Paresthesia of skin; Translations: [Paresthesia of both hands] Episodic Other nervous system disorders (6 sources) Impaired cognition; Translations: [Other symptoms and signs involving cognitive functions and awareness] 06-23-2024 Episodic Other nutritional; endocrine; and metabolic disorders [...] nutritional; endocrine; and metabolic disorders (16 sources) Morbid (severe) obesity due to excess [...] CERV] Onset: 10-28-2022 Episodic Other skin disorders (5 sources) Excessive sweating; Translations: [Generalized hyperhidrosis] 08-10-2024 Episodic Other skin disorders (4 sources) Generalized hyperhidrosis; Translations: [Generalized hyperhidrosis] 08-09-2024 Episodic Other skin disorders (2 sources) Localized swelling, mass and lump, head; Translations: [Swelling, mass, or lump in head and neck] 11-15-2024 Episodic Other upper respiratory infections (4 sources) Acute upper respiratory infection, unspecified; Translations: [Acute pharyngitis, unspecified] Onset: 06-17-2021 Resolved: 06-17-2021 Episodic Residual codes; unclassified (13 sources) Obstructive sleep apnea syndrome; Translations: [Obstructive sleep apnea (adult) (pediatric)] 06-21-2024 Chronic Residual codes; unclassified (5 sources) Obstructive sleep apnea (adult) (pediatric); Translations: [Obstructive sleep apnea (adult)(pediatric)] 06-21-2024 Chronic Residual codes; unclassified (11 sources) Amnesia; Translations: [Other amnesia] 04-21-2024 Episodic Residual codes; unclassified (20 sources) Personal history of other specified conditions; Translations: [History of seizure] 04-21-2024 Episodic Residual codes; unclassified (6 sources) Other amnesia; Translations: [Memory loss] 04-21-2024 Episodic Skin and subcutaneous tissue infections (5 sources) Cellulitis; Translations: [Cellulitis, unspecified] 08-28-2024 Episodic Spondylosis; intervertebral disc disorders; other back problems (20 sources) Sacroiliitis, not elsewhere classified; Translations: [Other intervertebral disc degeneration, lumbar region] Onset: 11-08-2022 Chronic Urinary tract infections (20 sources) Urinary tract infection, site not specified; Translations: [Acute urinary tract infection] Onset: 06-03-2018 Resolved: 05-31-2021 Episodic Viral infection (13 sources) Herpes simplex of female genitalia; Translations: [Herpesviral infection of other urogenital tract] Onset: 02-11-2023 02-11-2023 Chronic Viral infection (19 sources) Viral infection, unspecified; Translations: [Herpes simplex] Episodic Past or Other Problems Problem Classification Problem Date Documented Da te Episodic/Chronic Deficiency and other anemia (13 sources) Anemia; Translations: [Anemia, unspecified] Onset: 02-11-2023 02-11-2023 Episodic Other endocrine disorders (13 sources) Disorder of endocrine system; Translations: [Endocrine disorder, unspecified] Onset: 02-11-2023 02-11-2023 Episodic Other lower respiratory disease (1 source) Personal history of other diseases of the respiratory system; Translations: [History of asthma Z87.09] Onset: 06-17-2021 Resolved: 06-17-2021 Episodic Other nervous system disorders (13 sources) Paresthesia; Translations: [Paresthesia of skin] Onset: 05-31-2024 05-31-2024 Episodic Other nutritional; endocrine; and metabolic disorders (13 sources) Abnormal weight gain; Translations: [Abnormal weight gain] Onset: 02-11-2023 02-11-2023 Episodic Unclassified (3 sources) Contact with and (suspected) exposure to covid-19 Z20.822 Unclassified (1 source) Low back pain, unspecified M54.50 Viral infection (1 source) COVID-19 Onset: 07-06-2021 Resolved: 07-06-2021 Results Test Name Value Interpretation Reference Range Facility HCG ( test) Ql (U)o n 11-03-2024 Interpretation and review of laboratory results Normal [facility] Preg Test, Ur Negative Negative [facility] Human papilloma virus 16+18+ 31+33+35+39+45+51+52+56+58+59+66+68 DNA [Presence] in [place] 11-03-2024 HPV 16+18+31+33+35+39+45+51 +52+56+58+59+66+68 DNA Probe+sig amp Ql (Cvx) Human papilloma virus 16+18+31+33+35+39+45+51 +52+56+58+59+66+68 DNA [Presence] in Cer Negative [facility] Comment on above: This nucleic acid am plification test detects fourteen high-risk HPV types (16,18,31,33,35,39,45,51,52,56,58,59,66,68)without differentiation.Performed at: = - [facility] [id number] Director: Monse Cardona MD, Phone: [phone] at: - [facility] [id number] Director: Monse Cardona MD, Phone: [phone] No Panel Informationon 11-03 HPV High Risk Other Comment Note . [facility] Comment on above: TESTS RESULT FLAG UN ITS REF RANGE LAB -DIAGNOSIS: 02 NEGATIVE FOR INTRAEPITHELIAL LESION OR MALIGNANCY.Specimen adequacy: 02 Satisfactory for evaluation. Endocervical and/or squamous metaplastic cells (endocervical component) are present.Performed by: 02 Hiro Garces, Piano Mechanic Apprentice (ASCP). 02Note: Note 02 The Pap smear [...] <-Panic Low,>-Panic High,A-Abnormal,AA-Critical Abnormal ------Performed at:[address] [facility] [id number] Monse Cardona MD, Reference Lab Test Patient Age Note . [facility] Comment on above: TESTS RESULT FLAG UN ITS REF RANGE LAB - Clinician Provided Cytology Information Source.............Cervix;Endocervix No. of containers..01 ThinPrep VialAge Jean-Pierre YOON Elise... 3065 FLAG LEGEND: L-Low Normal,H-High Normal,LL-Alert Low,HH-Alert High <-Panic Low,>-Panic High,A-Abnormal,AA-Critical Abnormal ------Performed at:01 [address] [place] [address] Monse Cardona MD, Basophils Auto (Bld) [#/Vol] on 10-12-2024 Basophils (Bld) [#/Vol] Automated basoph il count 0.0-0.1 [facility] Basophils/100 WBC Auto (Bld) on 10-12-2024 Basophils/100 WBC (Bld) Automated basophil % 0. 2-2.0 [facility] Eosinophils/100 WBC Auto (Bl d)on 10-12-2024 Eosinophils/100 WBC (Bld) Automated eosinophil % 0.9-7.0 [facility] Erythrocyte distribution wid th Auto (RBC) [Ratio]on 10-12-2024 Erythrocyte distribution width (RBC) [Ratio] Erythrocyte distribution width [Ratio] by Automated count 11.0-15.0 [facility] Estimated glomerular filtrat ion rate (GFR) non- Americanon 10-12-2024 GFR/1.73 sq M.predicted among non-blacks MDRD (S/P/Bld) [Vol rate/Area] Estimated glomerular filtration rate (GFR) non- >=60 mL/min/1.7 3m 2 [facility] Hematocrit Auto (Bld) [Volum e fraction]on 10-12-2024 Hematocrit (Bld) [Volume fraction] Hematocrit [Volume Fraction] of Blood by Automated count 36.0-48.0 [facility] Hemoglobin [Mass/volume] in Bloodon 10-12-2024 Hemoglobin (Bld) [Mass/Vol] Hemoglobin [Mass/volume] in Blood 12.0-16.0 [facility] Iron binding capacity [Mass/ volume] in Serum or Plasmaon 10-12-2024 Iron binding capacity [Mass/Vol] Iron binding capacity [Mass/volume] in Serum or Plasma 250.0-450. 0 [facility] Iron saturation [Mass Fracti on] in Serum or Plasmaon 10-12-2024 Iron saturation [Mass fraction] Iron saturation [Mass Fraction] in Serum or Plasma [facility] Laboratory - Chemistry and C hemistry - challengeon 10-12-2024 Calcium [Mass/Vol] 9.0 mg/dL 8.5-10.1 [facility] Chloride [Moles/Vol] 104 mmol/L 98-107 [facility] CO2 [Moles/Vol] 26.8 mmol/L 21.0-32.0 [facility] Creatinine [Mass/Vol] 0.73 mg/dL 0.55-1.02 [facility] Ferritin [Mass/Vol] 321.0 ng/mL High 8.0-252.0 [facility] GFR/1.73 sq M.predicted MDRD (S/P/Bld) [Vol rate/Area] mL/min/{1.73_m2} >=60 mL/min/1.7 3m 2 [facility] Glucose [Mass/Vol] 89 mg/dL 74-106 [facility] Iron [Mass/Vol] 70.0 ug/dL 50.0-170.0 [facility] Potassium [Moles/Vol] 4.4 mmol/L 3.5-5.1 [facility] Sodium [Moles/Vol] 138 mmol/L 136-145 [facility] Urea nitrogen [Mass/Vol] 10.0 mg/dL 7.0-18.0 [facility] Urea nitrogen/Creatinine [Mass ratio] 13.7 mg/mg [facility] Laboratory - Hematology and Cell countson 10-12-2024 ESR (Bld) [Velocity] 46 mm/h High <=20 [facility] Immature granulocytes/100 WBC (Bld) 0.3 % 0.0-0.5 [facility] Leukocytes [#/volume] correc carmelita for nucleated erythrocytes in Blood by Automated counon 10-12-2024 WBC corrected for nucl RBC Auto (Bld) [#/Vol] Leukocytes [#/volume] corrected for nucleated erythrocytes in Blood by Automated coun 4.0-11.0 [facility] Lymphocytes Auto (Bld) [#/Vo l]on 10-12-2024 Lymphocytes (Bld) [#/Vol] Lymphocytes [#/volume] in Blood by Automated count 1.2-3.8 [facility] Lymphocytes/100 WBC Auto (Bl d)on 10-12-2024 Lymphocytes/100 WBC (Bld) Lymphocytes/100 leukocytes in Blood by Automated count 20.5-60.0 [facility] MCH Auto (RBC) [Entitic mass ]on 10-12-2024 MCH (RBC) [Entitic mass] MCH [Entitic mass] by Automated count 26.7-34.0 [facility] MCHC Auto (RBC) [Mass/Vol]on 10-12-2024 MCHC (RBC) [Mass/Vol] MCHC [Mass/volume] by Automated count 29.9-35.2 [facility] MCV Auto (RBC) [Entitic vol] on 10-12-2024 MCV (RBC) [Entitic vol] MCV [Entitic vol ume] by Automated count 81.0-99.0 [facility] Monocytes Auto (Bld) [#/Vol] on 10-12-2024 Monocytes (Bld) [#/Vol] Automated blood monocyte count 0.3-0.8 [facility] Monocytes/100 WBC Auto (Bld) on 10-12-2024 Monocytes/100 WBC (Bld) Automated monocyte % 1. 7-12.0 [facility] Neutrophils Auto (Bld) [#/Vo l]on 10-12-2024 Neutrophils (Bld) [#/Vol] Neutrophils [#/volume] in Blood by Automated count 1.4-6.5 [facility] Neutrophils/100 WBC Auto (Bl d)on 10-12-2024 Neutrophils/100 WBC (Bld) Automated neutrophil % 43.0-75.0 [facility] No Panel Informationon 10-12 C-Reactive Protein, Quantitative 1.07 mg/dL High <=0.50 [facility] Eosinophils # (Auto) 0.2 10 3/uL 0.0-0.7 [facility] Immature Granulocyte # (Auto) 0.03 10 3/uL 0.00-0.03 [facility] Platelet mean volume Auto (B ld) [Entitic vol]on 10-12-2024 Platelet mean volume (Bld) [Entitic vol] Platelet mean volume [Entitic volume] in Blood by Automated count Low 9.5-13.5 [facility] Platelets Auto (Bld) [#/Vol] on 10-12-2024 Platelets (Bld) [#/Vol] Platelets [#/vol ume] in Blood by Automated count 150-450 [facility] RBC Auto (Bld) [#/Vol]on RBC (Bld) [#/Vol] Erythrocytes [#/volu me] in Blood by Automated count 4.20-5.40 [facility] Serum or plasma anion gap de terminationon 10-12-2024 Anion gap [Moles/Vol] Serum or plasma an ion gap determination [facility] Influenza virus B Ag [Presen ce] in Upper respiratory specimen by Rapid immunoassayon 09-27-2024 FLUBV Ag IA.rapid Ql (Nph) Influenza virus B Ag [Presence] in Upper respiratory specimen by Rapid immunoassay [facility] No Panel Informationon 09-27 Influenza Type A (Rapid) Negative [facility] POC SARS CoV-2 [facility] binding capacity [Mass/ volume] in Serum or Plasmaon 08-24-2024 Iron binding capacity [Mass/Vol] Iron binding capacity [Mass/volume] in Serum or Plasma 250.0-450. 0 [facility] Iron saturation [Mass Fracti on] in Serum or Plasmaon 08-24-2024 Iron saturation [Mass fraction] Iron saturation [Mass Fraction] in Serum or Plasma [facility] Laboratory - Chemistry and C hemistry - challengeon 08-24-2024 Iron [Mass/Vol] 81.0 ug/dL 50.0-170.0 [facility] Measles virus IgG Ab [Units/ volume] in Serum by Immunoassayon 08-24-2024 MeV IgG IA Qn (S) Measles virus IgG Ab [Units/volume] in Serum by Immunoassay Immune >16.4 [facility] Comment on above: Negative <13.5 Equiv ocal 13.5 - 16.4 Positive >16.4Presence of antibodies to Rubeola is presumptive evidenceof immunity except when acute infection is suspected. No Panel Informationon 08-24 Rubella IgG Antibody <0.90 index Abnormal Immune >0.99 [facility] Comment on above: Non-immune <0.90 Equ ivocal 0.90 - 0.99 Immune >0.99 Serum mumps virus IgG antibo dy assay (units/volume)on 08-24-2024 MuV IgG Qn (S) Serum mumps virus Ig G antibody assay (units/volume) Abnormal Immune >10.9 [facility] Comment on above: Negative <9.0 Equivo heike 9.0 - 10.9 Positive >10.9A positive result generally indicates past exposure toMumps virus or previous vaccination.Performed at: [facility] [id number] Director: Cassius Zhong PhD, Phone: [phone] Pathology study report docum entOrdered By: Thaddeus Shah on 08-20-2024 Pathology study [facility] Other HCG ( test) Bello mejia Ql (U)Ordered By: Hilaria Burgos on 08-19-2024 HCG ( test) Ql (U) Urine human chorionic gonadotropin (hCG) detection by immunoassay [facility] HCG,Urineon 08-19-2024 Beta HCG ( test) Ql (U) Negative Normal [facility] Comment on above: Result Comment: PERF ORMED BY: [place] [address] PATHOLOGIST CONCEPTOR RYLAN BENEDICT M.D. Performed By: #### U HCG #### [address] Justyn 08-19-2024 L --- Specimen: Received: 08/19/24 Status: ARLINE Zavala Num: [id number] Spec Type: Surgical Subm Dr: Hilaria Burgos DO Tissues: A Small Intestine - Biopsy/Polyp (SM BOWEL BX R/O CELIAC) B GASTRIC FOR HP (GASTRIC BX R/O H PYLORI) C Esophagus Biopsy (GE JUNCTION BX / ESOPHAGITIS) Procedures: PAS - LGRN, HE/6, Gross/Micro L4/3, H PYLORI Age/ Patient Sex Location Account Attending Physician Ashly Mehta 33/F [id number] Hilaria Burgos DO SPEC NUM: [id number] RECD: 08/19/24 STATUS: ARLINE ZAVALA NUM: [id number] GRADY: 08/19/[address]: Hilaria Burgos DO ENTERED: 08/19/[address] [facility] [address]: SPEC TYPE: Surgical DEPT: S ENTERED BY: [id number] RECV BY: [id number] ORDERED: PAS - LGRN, HE/6, Gross/Micro L4/3, [...] out H. pylori, Part C esophagitis Specimen: [id number] Received: 08/19/24 Status: ARLINE Zavala Num: [id number] Spec Type: Surgical Subm Dr: Hilaria Burgos DO Tissues: A Small Intestine - Biopsy/Polyp (SM BOWEL BX R/O CELIAC) B GASTRIC FOR HP (GASTRIC BX R/O H PYLORI) C Esophagus Biopsy (GE JUNCTION BX / ESOPHAGITIS) Procedures: PAS - LGRN, HE/6, Gross/Micro L4/3, H PYLORI Patient: Ashly Mehta [id number] (Continued) Specimen: [id number] Received: 08/19/24 (Continued) Signed (signature on file) Thaddeus Shah Jr., 08/20/24 1417 Specimen: [id number] Received: 08/19/24 Status: ARLINE Joie Num: [id number] Spec Type: Surgical Subm Dr: Hilaria Burgos DO Tissues: A Small Intestine - Biopsy/Polyp (SM BOWEL BX R/O CELIAC) B GASTRIC FOR HP (GASTRIC BX R/O H PYLORI) C Esophagus Biopsy (GE JUNCTION BX / ESOPHAGITIS) Procedures: SHEILA - REAGAN, HE/6, Gross/Micro L4/3, H PYLORI Patient: Ashly Mehta [id number] (Continued) Specimen: [id number] Received: 08/19/24-1121 (Continued) Gross Description Part A is received in formalin labeled with the patients name, date of , and small bowel BX are 2 leal-green, focally erythematous, friable, 0.3 cm each in greatest dimension tissue bits. The specimen is entirely submitted in a single cassette. (1, ns, S25-11 A) JG Part B is received in formalin labeled with the patients name, date of , and gastric BX are 2 leal-green, focally erythematous, friable, 0.3 cm each in greatest dimension tissue bits. The specimen is entirely submitted in a single cassette. (1, ns, S25-11 B) JG Part C is received in [...] negative with a satisfactory control. CPT Codes 85268 x 3, 25766, 23021 -- (more content not included)... Normal [facility] Urine Cultureon 08-09-2024 Bacteria identified Cx Nom (U) ORGANISM: Escherichia coli (ESBL) (O:ESCCOLESBL) [place] Count >100,000 Aerobic RENATE Charge (NMIC56) -- [...] RESISTANT TO ALL B-LACTAM DRUGS. PERFORMED BY: [place] [address] PATHOLOGIST CONCEPTOR RYLAN BENEDICT M.D. Normal [facility] Comment on above: Performed By: #### C UU #### [address] Urine cultureOrdered By: Keesha Marc on 08-09-2024 Bacteria identified Cx Nom (U) Abnormal [facility] Albumin [Mass/volume] in Ser um or Plasmaon 06-29-2024 Albumin [Mass/Vol] Albumin [Mass/volume ] in Serum or Plasma 2.9-4.4 [facility] Basophils Auto (Bld) [#/Vol] on 06-29-2024 Basophils (Bld) [#/Vol] Automated basoph il count 0.0-0.1 [facility] Basophils/100 WBC Auto (Bld) on 06-29-2024 Basophils/100 WBC (Bld) Automated basophil % 0. 2-2.0 [facility] Eosinophils/100 WBC Auto (Bl d)on 06-29-2024 Eosinophils/100 WBC (Bld) Automated eosinophil % 0.9-7.0 [facility] Erythrocyte distribution wid th Auto (RBC) [Ratio]on 06-29-2024 Erythrocyte distribution width (RBC) [Ratio] Erythrocyte distribution width [Ratio] by Automated count High 11.0-15.0 [facility] Hematocrit Auto (Bld) [Volum e fraction]on 06-29-2024 Hematocrit (Bld) [Volume fraction] Hematocrit [Volume Fraction] of Blood by Automated count 36.0-48.0 [facility] Hemoglobin [Mass/volume] in Bloodon 06-29-2024 Hemoglobin (Bld) [Mass/Vol] Hemoglobin [Mass/volume] in Blood 12.0-16.0 [facility] IgA [Mass/volume] in Serum o r Plasmaon 06-29-2024 IgA [Mass/Vol] IgA [Mass/volume] in Serum or Plasma 87-352 [facility] IgG [Mass/volume] in Serum o r Plasmaon 06-29-2024 IgG [Mass/Vol] IgG [Mass/volume] in Serum or Plasma [phone] [facility] IgM [Mass/volume] in Serum o r Plasmaon 06-29-2024 IgM [Mass/Vol] IgM [Mass/volume] in Serum or Plasma 26-217 [facility] Iron binding capacity [Mass/ volume] in Serum or Plasmaon 06-29-2024 Iron binding capacity [Mass/Vol] Iron binding capacity [Mass/volume] in Serum or Plasma 250.0-450. 0 [facility] Iron saturation [Mass Fracti on] in Serum or Plasmaon 06-29-2024 Iron saturation [Mass fraction] Iron saturation [Mass Fraction] in Serum or Plasma [facility] Laboratory - Chemistry and C hemistry - challengeon 06-29-2024 Cobalamin (Vitamin B12) [Mass/Vol] 647 pg/mL [phone] [facility] Comment on above: Performed at: [address] [id number] Director: Cassius Zhong PhD, Phone: [phone] Ferritin [Mass/Vol] 43.0 ng/mL 8.0-252.0 [facility] Iron [Mass/Vol] 50.0 ug/dL 50.0-170.0 [facility] LDH [Catalytic activity/Vol] 202 U/L 81-234 [facility] Laboratory - Hematology and Cell countson 06-29-2024 ESR (Bld) [Velocity] 41 mm/h High <=20 [facility] Immature granulocytes/100 WBC (Bld) 0.3 % 0.0-0.5 [facility] Leukocytes [#/volume] correc carmelita for nucleated erythrocytes in Blood by Automated counon 06-29-2024 WBC corrected for nucl RBC Auto (Bld) [#/Vol] Leukocytes [#/volume] corrected for nucleated erythrocytes in Blood by Automated coun High 4.0-11.0 [facility] Lymphocytes Auto (Bld) [#/Vo l]on 06-29-2024 Lymphocytes (Bld) [#/Vol] Lymphocytes [#/volume] in Blood by Automated count 1.2-3.8 [facility] Lymphocytes/100 WBC Auto (Bl d)on 06-29-2024 Lymphocytes/100 WBC (Bld) Lymphocytes/100 leukocytes in Blood by Automated count 20.5-60.0 [facility] MCH Auto (RBC) [Entitic mass ]on 06-29-2024 MCH (RBC) [Entitic mass] MCH [Entitic mass] by Automated count 26.7-34.0 [facility] MCHC Auto (RBC) [Mass/Vol]on 06-29-2024 MCHC (RBC) [Mass/Vol] MCHC [Mass/volume] by Automated count 29.9-35.2 [facility] MCV Auto (RBC) [Entitic vol] on 06-29-2024 MCV (RBC) [Entitic vol] MCV [Entitic vol ume] by Automated count 81.0-99.0 [facility] Monocytes Auto (Bld) [#/Vol] on 06-29-2024 Monocytes (Bld) [#/Vol] Automated blood monocyte count 0.3-0.8 [facility] Monocytes/100 WBC Auto (Bld) on 06-29-2024 Monocytes/100 WBC (Bld) Automated monocyte % 1. 7-12.0 [facility] Neutrophils Auto (Bld) [#/Vo l]on 06-29-2024 Neutrophils (Bld) [#/Vol] Neutrophils [#/volume] in Blood by Automated count High 1.4-6.5 [facility] Neutrophils/100 WBC Auto (Bl d)on 06-29-2024 Neutrophils/100 WBC (Bld) Automated neutrophil % 43.0-75.0 [facility] No Panel Informationon 06-29 C-Reactive Protein, Quantitative 0.74 mg/dL High <=0.50 [facility] Eosinophils # (Auto) 0.2 10 3/uL 0.0-0.7 [facility] Immature Granulocyte # (Auto) 0.03 10 3/uL 0.00-0.03 [facility] Protein Electrophoresis M-Manpreet Not Observed g/dL Not Observed [facility] Protein Electrophoresis Note Comment . [facility] Comment on above: Protein electrophore sis scan will follow via computer,mail, or laborer operator delivery.Performed at: [address] [id number] Director: Cassius Zhong PhD, Phone: [phone] Platelet mean volume Auto (B ld) [Entitic vol]on 06-29-2024 Platelet mean volume (Bld) [Entitic vol] Platelet mean volume [Entitic volume] in Blood by Automated count 9.5-13.5 [facility] Platelets Auto (Bld) [#/Vol] on 06-29-2024 Platelets (Bld) [#/Vol] Platelets [#/vol ume] in Blood by Automated count 150-450 [facility] Protein [Mass/volume] in Ser um or Plasmaon 06-29-2024 Protein [Mass/Vol] Protein [Mass/volume ] in Serum or Plasma 6.0-8.5 [facility] RBC Auto (Bld) [#/Vol]on RBC (Bld) [#/Vol] Erythrocytes [#/volu me] in Blood by Automated count 4.20-5.40 [facility] Serum globulin measurement ( mass/volume)on 06-29-2024 Globulin (S) [Mass/Vol] Serum globulin measurement (mass/volume) 2.2-3.9 [facility] Serum or plasma albumin/glob ulin mass ratioon 06-29-2024 Albumin/Globulin [Mass ratio] Serum or plasma albumin/globulin mass ratio 0.7-1.7 [facility] Serum or plasma alpha 1 glob ulin measurement by electrophoresis (mass/volume)on 06-29-2024 Alpha 1 globulin Elph [Mass/Vol] Serum or plasma alpha 1 globulin measurement by electrophoresis (mass/volume) 0.0-0.4 [facility] Serum or plasma alpha 2 glob ulin measurement by electrophoresis (mass/volume)on 06-29-2024 Alpha 2 globulin Elph [Mass/Vol] Serum or plasma alpha 2 globulin measurement by electrophoresis (mass/volume) 0.4-1.0 [facility] Serum or plasma beta globuli n measurement by electrophoresis (mass/volume)on 06-29-2024 Beta globulin Elph [Mass/Vol] Serum or plasma beta globulin measurement by electrophoresis (mass/volume) 0.7-1.3 [facility] Serum or plasma gamma globul in measurement by electrophoresis (mass/volume)on 06-29-2024 Gamma globulin Elph [Mass/Vol] Serum or plasma gamma globulin measurement by electrophoresis (mass/volume) 0.4-1.8 [facility] Serum or plasma immunoelectr ophoresis interpretationon 06-29-2024 Interpretation IEP [Interp] Serum or plasma immunoelectrophoresis interpretation . [facility] Comment on above: No monoclonality det ected. Laboratory - Chemistry and C hemistry - challengeon 06-25-2024 Bilirubin Ql (U) 0 [facility] Glucose (U) [Mass/Vol] 0 mg[facility]l (U) 0 [facility] pH (U) 5.0 [pH] [facility] Specific gravity (U) [Rel density] 1.020 [facility] Urobilinogen (U) [Mass/Vol] 0.2 mg/dL [facility] Laboratory - Specimen inform ationon 06-25-2024 Appearance (U) cloudy [facility] Color (U) yellow [facility] Laboratory - Urinalysison Leukocyte esterase Test strip Ql (U) 0 [facility] Nitrite Ql (U) Negative [facility] Protein Ql (U) Trace [facility] No Panel Informationon 06-25 Urine Occult Blood 0 [facility] Urine Cultureon 06-25-2024 Bacteria identified Cx Nom (U) 30,000 colonies/ml mixed bacterial skin contaminants 2 Days PERFORMED BY: [place] [address] PATHOLOGIST CONCEPTOR NESHA MAIER M.D. Normal [facility] Comment on above: Performed By: #### C UU #### [address] Urine cultureOrdered By: Keesha Marc on 06-25-2024 Bacteria identified Cx Nom (U) Urine culture [facility] Basophils Auto (Bld) [#/Vol] on 06-15-2024 Basophils (Bld) [#/Vol] 0.1 10 3/uL 0.0-0.1 [facility] Basophils (Bld) [#/Vol] Automated basoph il count 0.0-0.1 [facility] Basophils/100 WBC Auto (Bld) on 06-15-2024 Basophils/100 WBC (Bld) 0.7 % 0.2-2.0 [facility] Basophils/100 WBC (Bld) Automated basophil % 0. 2-2.0 [facility] Chlamydia trachomatis DNA [P resence] in Specimen by SURI with probe detectionOrdered By: Casandra Hassan on 06-15-2024 C. trachomatis DNA SURI+probe Ql (Unsp spec) Negative Negative [facility] C. trachomatis DNA SURI+probe Ql (Unsp spec) Chlamydia trachomatis DNA [Presence] in Specimen by SURI with probe detection Negative [facility] Chlamydia/GC/Trich NAAon Chlamydia Trachomotis, SURI Negative Normal Negative [facility] Comment on above: Performed By: #### C UU #### [facility] [address] [place] [address] #### GCCHLAMTRI #### [facility] , Neisseria Gonorrhoeae, SURI Negative Normal Negative [facility] Comment on above: Performed By: #### C UU #### [address] #### GCCHLAMTRI #### [facility] , Trichomonas SURI Negative Normal Negative [facility] Comment on above: Result Comment: Perf ormed at: =G - [facility] [address] [id number] Clam Picker: Monse Cardona MD, Phone: [phone] PERFORMED BY: [place] [address] PATHOLOGIST CONCEPTOR NESHA MAIER M.D. Performed By: #### C UU #### [place] [address] [place] #### GCCHLAMTRI #### [facility] , Eosinophils/100 WBC Auto (Bl d)on 06-15-2024 Eosinophils/100 WBC (Bld) 1.1 % 0.9-7.0 [facility] Eosinophils/100 WBC (Bld) Automated eosinophil % 0.9-7.0 [facility] Erythrocyte distribution wid th Auto (RBC) [Ratio]on 06-15-2024 Erythrocyte distribution width (RBC) [Ratio] 16.4 % High 11.0-15.0 [facility] Erythrocyte distribution width (RBC) [Ratio] Erythrocyte distribution width [Ratio] by Automated count High 11.0-15.0 [facility] Estimated glomerular filtrat ion rate (GFR) non- Americanon 06-15-2024 GFR/1.73 sq M.predicted among non-blacks MDRD (S/P/Bld) [Vol rate/Area] mL/min/{1.73_m2} >=60 mL/min/1.7 3m 2 [facility] GFR/1.73 sq M.predicted among non-blacks MDRD (S/P/Bld) [Vol rate/Area] Estimated glomerular filtration rate (GFR) non- >=60 mL/min/1.7 3m 2 [facility] Globulin Calc (S) [Mass/Vol] on 06-15-2024 Globulin (S) [Mass/Vol] 4.1 g/dL [facility] Globulin (S) [Mass/Vol] Serum globulin measurement by calculation (mass/volume) [facility] HCG ( test) IA.rapi d Ql (U)on 06-15-2024 HCG ( test) Ql (U) Negative NEGATIVE [facility] HCG ( test) Ql (U) Urine human chorionic gonadotropin (hCG) detection by immunoassay NEGATIVE [facility] Hematocrit Auto (Bld) [Volum e fraction]on 06-15-2024 Hematocrit (Bld) [Volume fraction] 42.5 % 36.0-48.0 [facility] Hematocrit (Bld) [Volume fraction] Hematocrit [Volume Fraction] of Blood by Automated count 36.0-48.0 [facility] Hemoglobin [Mass/volume] in Bloodon 06-15-2024 Hemoglobin (Bld) [Mass/Vol] 13.6 g/dL 12.0-16.0 [facility] Hemoglobin (Bld) [Mass/Vol] Hemoglobin [Mass/volume] in Blood 12.0-16.0 [facility] Laboratory - Chemistry and C hemistry - challengeon 06-15-2024 Bilirubin Ql (U) Negative NEGATIVE [facility] Glucose (U) [Mass/Vol] Negative NEGATIVE [facility] Ketones Ql (U) Negative NEGATIVE [facility] pH (U) 6.0 [pH] 5.0-9.0 [facility] Specific gravity (U) [Rel density] 1.025 1.005-1.02 5 [facility] Urobilinogen Qn (U) 0.2 {Tamiko'U}/dL 0.2-1.0 [facility] Albumin [Mass/Vol] 3.6 g/dL 3.4-5.0 [facility] ALP [Catalytic activity/Vol] 76 U/L 46-116 [facility] ALT [Catalytic activity/Vol] 46 U/L 14-59 [facility] AST [Catalytic activity/Vol] 29 U/L 15-37 [facility] Bilirubin [Mass/Vol] 0.4 mg/dL 0.2-1.0 [facility] Calcium [Mass/Vol] 9.5 mg/dL 8.5-10.1 [facility] Chloride [Moles/Vol] 103 mmol/L 98-107 [facility] CO2 [Moles/Vol] 26.4 mmol/L 21.0-32.0 [facility] Creatinine [Mass/Vol] 0.83 mg/dL 0.55-1.02 [facility] GFR/1.73 sq M.predicted MDRD (S/P/Bld) [Vol rate/Area] mL/min/{1.73_m2} >=60 mL/min/1.7 3m 2 [facility] Glucose [Mass/Vol] 102 mg/dL 74-106 [facility] Lactate [Moles/Vol] 1.9 mmol/L 0.4-2.0 [facility] Lipase [Catalytic activity/Vol] 32.0 U/L 16.0-77.0 [facility] Potassium [Moles/Vol] 3.9 mmol/L 3.5-5.1 [facility] Protein [Mass/Vol] 7.7 g/dL 6.4-8.2 [facility] Sodium [Moles/Vol] 139 mmol/L 136-145 [facility] Urea nitrogen [Mass/Vol] 9.0 mg/dL 7.0-18.0 [facility] Urea nitrogen/Creatinine [Mass ratio] 10.8 mg/mg [facility] Laboratory - Hematology and Cell countson 06-15-2024 Immature granulocytes/100 WBC (Bld) 0.2 % 0.0-0.5 [facility] Laboratory - Microbiology an d Antimicrobial susceptibilityOrdered By: Casandra Hassan on 06-15-2024 Bacteria identified Cx Nom (U) Escherichia coli (ESBL) Abnormal [facility] Laboratory - Specimen inform ationon 06-15-2024 Appearance (U) CLEAR CLEAR [facility] Color (U) LT. YELLOW YELLOW [facility] Laboratory - Urinalysison Leukocyte esterase Test strip Ql (U) TRACE Abnormal NEGATIVE [facility] Mucus Ql (Urine sed) TRACE Abnormal NONE SEEN [facility] Nitrite Ql (U) Positive Abnormal NEGATIVE [facility] Protein Ql (U) >=300 mg/dL Abnormal NEG/TRACE [facility] Leukocytes [#/volume] correc carmelita for nucleated erythrocytes in Blood by Automated counon 06-15-2024 WBC corrected for nucl RBC Auto (Bld) [#/Vol] 12.7 10 3/uL High 4.0-11.0 [facility] WBC corrected for nucl RBC Auto (Bld) [#/Vol] Leukocytes [#/volume] corrected for nucleated erythrocytes in Blood by Automated coun High 4.0-11.0 [facility] Lymphocytes Auto (Bld) [#/Vo l]on 06-15-2024 Lymphocytes (Bld) [#/Vol] 2.9 10 3/uL 1.2-3.8 [facility] Lymphocytes (Bld) [#/Vol] Lymphocytes [#/volume] in Blood by Automated count 1.2-3.8 [facility] Lymphocytes/100 WBC Auto (Bl d)on 06-15-2024 Lymphocytes/100 WBC (Bld) 23.0 % 20.5-60.0 [facility] Lymphocytes/100 WBC (Bld) Lymphocytes/100 leukocytes in Blood by Automated count 20.5-60.0 [facility] MCH Auto (RBC) [Entitic mass ]on 06-15-2024 MCH (RBC) [Entitic mass] 26.7 pg 26.7-34.0 [facility] MCH (RBC) [Entitic mass] MCH [Entitic mass] by Automated count 26.7-34.0 [facility] MCHC Auto (RBC) [Mass/Vol]on 06-15-2024 MCHC (RBC) [Mass/Vol] 32.0 g/dL 29.9-35.2 [facility] MCHC (RBC) [Mass/Vol] MCHC [Mass/volume] by Automated count 29.9-35.2 [facility] MCV Auto (RBC) [Entitic vol] on 06-15-2024 MCV (RBC) [Entitic vol] 83.5 fL 81.0-99.0 [facility] MCV (RBC) [Entitic vol] MCV [Entitic vol ume] by Automated count 81.0-99.0 [facility] Monocytes Auto (Bld) [#/Vol] on 06-15-2024 Monocytes (Bld) [#/Vol] 0.6 10 3/uL 0.3-0.8 [facility] Monocytes (Bld) [#/Vol] Automated blood monocyte count 0.3-0.8 [facility] Monocytes/100 WBC Auto (Bld) on 06-15-2024 Monocytes/100 WBC (Bld) 4.9 % 1.7-12.0 [facility] Monocytes/100 WBC (Bld) Automated monocyte % 1. 7-12.0 [facility] Neisseria gonorrhoeae DNA [P resence] in Specimen by SURI with probe detectionOrdered By: Casandra Hassan on 06-15-2024 N. gonorrhoeae DNA SURI+probe Ql (Unsp spec) Negative Negative [facility] N. gonorrhoeae DNA SURI+probe Ql (Unsp spec) Neisseria gonorrhoeae DNA [Presence] in Specimen by SURI with probe detection Negative [facility] Neutrophils Auto (Bld) [#/Vo l]on 06-15-2024 Neutrophils (Bld) [#/Vol] 8.9 10 3/uL High 1.4-6.5 [facility] Neutrophils (Bld) [#/Vol] Neutrophils [#/volume] in Blood by Automated count High 1.4-6.5 [facility] Neutrophils/100 WBC Auto (Bl d)on 06-15-2024 Neutrophils/100 WBC (Bld) 70.1 % 43.0-75.0 [facility] Neutrophils/100 WBC (Bld) Automated neutrophil % 43.0-75.0 [facility] No Panel Informationon 06-15 Miscellaneous Test Comment See comment [facility] Comment on above: Specimen Source: UCC - Urine,Clean Catch - Urine CC - 200.100 Urine Bacteria SMALL #/HPF Abnormal NONE SEEN [facility] Urine Culture Reflexed YES [facility] Urine Culture Result 1 \R\ Urine Culture , Routine\R\ Organism: Gram negative jus : [facility] Urine Microscopic Review YES [facility] Urine Occult Blood MODERATE Abnormal NEGATIVE [facility] Urine Other Casts NONE SEEN #/LPF NONE SEEN [facility] Urine Other Crystals None Seen #/HPF None Seen [facility] Urine RBC 10-20 #/HPF Abnormal 0-2 [facility] Urine Squamous Epithelial Cells FEW #/LPF Abnormal NONE/RARE [facility] Urine WBC 20-50 #/HPF Abnormal NONE SEEN [facility] Eosinophils # (Auto) 0.1 10 3/uL 0.0-0.7 [facility] Immature Granulocyte # (Auto) 0.03 10 3/uL 0.00-0.03 [facility] Platelet mean volume Auto (B ld) [Entitic vol]on 06-15-2024 Platelet mean volume (Bld) [Entitic vol] 10.0 fL 9.5-13.5 [facility] Platelet mean volume (Bld) [Entitic vol] Platelet mean volume [Entitic volume] in Blood by Automated count 9.5-13.5 [facility] Platelets Auto (Bld) [#/Vol] on 06-15-2024 Platelets (Bld) [#/Vol] 308 10 3/uL 150-450 [facility] Platelets (Bld) [#/Vol] Platelets [#/vol ume] in Blood by Automated count 150-450 [facility] RBC Auto (Bld) [#/Vol]on RBC (Bld) [#/Vol] 5.09 10 6/uL 4.20-5.40 [facility] RBC (Bld) [#/Vol] Erythrocytes [#/volu me] in Blood by Automated count 4.20-5.40 [facility] Serum or plasma albumin/glob ulin mass ratioon 06-15-2024 Albumin/Globulin [Mass ratio] 0.9 {ratio} [facility] Albumin/Globulin [Mass ratio] Serum or plasma albumin/globulin mass ratio [facility] Serum or plasma anion gap de terminationon 06-15-2024 Anion gap [Moles/Vol] 13.5 [facility] Anion gap [Moles/Vol] Serum or plasma an ion gap determination [facility] Trichomonas vaginalis DNA [P resence] in Specimen by SURI with probe detectionOrdered By: Casandra Hassan on 06-15-2024 T. vaginalis DNA SURI+probe Ql (Unsp spec) Negative Negative [facility] Comment on above: Performed at: =G - [facility] [id number] Director: Monse Cardona MD, Phone: [phone] T. vaginalis DNA SURI+probe Ql (Unsp spec) Trichomonas vaginalis DNA [Presence] in Specimen by SURI with probe detection Negative [facility] Comment on above: Performed at: =G - [facility] [id number] Director: Monse Cardona MD, Phone: [phone] Urine Cultureon 06-15-2024 Bacteria identified Cx Nom (U) ORGANISM: Escherichia coli (ESBL) (O:ESCCOLESBL) [place] Count >100,000 Aerobic RENATE Charge ([id number]) -- [...] RESISTANT TO ALL B-LACTAM DRUGS. PERFORMED BY: [place] [address] PATHOLOGIST CONCEPTOR NESHA MAIER M.D. Normal [facility] Comment on above: Performed By: #### C UU #### [place] [address] [place] #### GCCHLAMTRI #### [facility] , Urine cultureOrdered By: Eulalio Hassan on 06-15-2024 Bacteria identified Cx Nom (U) Abnormal [facility] Iron binding capacity [Mass/ volume] in Serum or Plasmaon 06-07-2024 Iron binding capacity [Mass/Vol] 411.0 ug/dL 250.0-450. 0 [facility] Iron binding capacity [Mass/Vol] Iron binding capacity [Mass/volume] in Serum or Plasma 250.0-450. 0 [facility] Iron saturation [Mass Fracti on] in Serum or Plasmaon 06-07-2024 Iron saturation [Mass fraction] 13.4 % [facility] Iron saturation [Mass fraction] Iron saturation [Mass Fraction] in Serum or Plasma [facility] Laboratory - Chemistry and C hemistry - challengeon 06-07-2024 Iron [Mass/Vol] 55.0 ug/dL 50.0-170.0 [facility] Iron binding capacity [Mass/ volume] in Serum or Plasmaon 04-21-2024 Iron binding capacity [Mass/Vol] 495.0 ug/dL High 250.0-450. 0 [facility] Iron binding capacity [Mass/Vol] Iron binding capacity [Mass/volume] in Serum or Plasma High 250.0-450. 0 [facility] Iron saturation [Mass Fracti on] in Serum or Plasmaon 04-21-2024 Iron saturation [Mass fraction] 15.4 % [facility] Iron saturation [Mass fraction] Iron saturation [Mass Fraction] in Serum or Plasma [facility] Laboratory - Chemistry and C hemistry - challengeon 04-21-2024 Cobalamin (Vitamin B12) [Mass/Vol] 815 pg/mL [id number] [facility] Comment on above: Performed at: [place] [id number] Director: Cassius Zhong PhD, Phone: [phone] Iron [Mass/Vol] 76.0 ug/dL 50.0-170.0 [facility] TSH Qn 2.211 m[IU]/L 0.358-3.74 0 [facility] Basophils Auto (Bld) [#/Vol] on 04-12-2024 Basophils (Bld) [#/Vol] 0.1 10 3/uL 0.0-0.1 [facility] Basophils (Bld) [#/Vol] Automated basoph il count 0.0-0.1 [facility] Basophils/100 WBC Auto (Bld) on 04-12-2024 Basophils/100 WBC (Bld) 0.6 % 0.2-2.0 [facility] Basophils/100 WBC (Bld) Automated basophil % 0. 2-2.0 [facility] Buprenorphine [Presence] in Urineon 04-12-2024 Buprenorphine Ql (U) Negative NEGATIVE [facility] Comment on above: DRUG CLASS TEST SYST EM CUT-OFF CONCENTRATIONS ARE ASFOLLOWS:AMP (Amphetamine): 500 ng/mLBAR (Barbiturates): 200 ng/mLBZO (Benzodiazepines): 150 ng/mLBUP (Buprenorphine): 10 ng/mLCOC (Cocaine): 150 ng/mLmAMP (Methamphetamine): 500 ng/mLMTD (Methadone): 200 ng/mLOPI (Opiates): 100 ng/mLOXY (Oxycodone): 100 ng/mLPCP (Phencyclidine): 25 ng/mLTHC (Cannabinoids): 50 ng/mLTCA (Trycyclic Antidepressants): 300 ng/mL Buprenorphine Ql (U) Buprenorphine [Presence] in Urine NEGATIVE [facility] Comment on above: DRUG CLASS TEST [...] % 0.9-7.0 [facility] Eosinophils/100 WBC (Bld) Automated eosinophil % 0.9-7.0 [facility] Erythrocyte distribution wid th Auto (RBC) [Ratio]on 04-12-2024 Erythrocyte distribution width (RBC) [Ratio] 17.4 % High 11.0-15.0 [facility] Erythrocyte distribution width (RBC) [Ratio] Erythrocyte distribution width [Ratio] by Automated count High 11.0-15.0 [facility] Estimated glomerular filtrat ion rate (GFR) non- Americanon 04-12-2024 GFR/1.73 sq M.predicted among non-blacks MDRD (S/P/Bld) [Vol rate/Area] mL/min/{1.73_m2} >=60 [facility] GFR/1.73 sq M.predicted among non-blacks MDRD (S/P/Bld) [Vol rate/Area] Estimated glomerular filtration rate (GFR) non- >=60 [facility] Globulin Calc (S) [Mass/Vol] on 04-12-2024 Globulin (S) [Mass/Vol] 4.1 g/dL [facility] Globulin (S) [Mass/Vol] Serum globulin measurement by calculation (mass/volume) [facility] HCG ( test) IAsurjiti d Ql (U)on 04-12-2024 HCG ( test) Ql (U) Negative NEGATIVE [facility] HCG ( test) Ql (U) Urine human chorionic gonadotropin (hCG) detection by immunoassay NEGATIVE [facility] Hematocrit Auto (Bld) [Volum e fraction]on 04-12-2024 Hematocrit (Bld) [Volume fraction] 37.9 % 36.0-48.0 [facility] Hematocrit (Bld) [Volume fraction] Hematocrit [Volume Fraction] of Blood by Automated count 36.0-48.0 [facility] Hemoglobin [Mass/volume] in Bloodon 04-12-2024 Hemoglobin (Bld) [Mass/Vol] 11.6 g/dL Low 12.0-16.0 [facility] Hemoglobin (Bld) [Mass/Vol] Hemoglobin [Mass/volume] in Blood Low 12.0-16.0 [facility] Laboratory - Chemistry and C hemistry - challengeon 04-12-2024 Albumin [Mass/Vol] 3.3 g/dL Low 3.4-5.0 [facility] ALP [Catalytic activity/Vol] 75 U/L 46-116 [facility] ALT [Catalytic activity/Vol] 36 U/L 14-59 [facility] AST [Catalytic activity/Vol] 19 U/L 15-37 [facility] Bilirubin [Mass/Vol] 0.3 mg/dL 0.2-1.0 [facility] Calcium [Mass/Vol] 8.6 mg/dL 8.5-10.1 [facility] Chloride [Moles/Vol] 101 mmol/L 98-107 [facility] CO2 [Moles/Vol] 28.7 mmol/L 21.0-32.0 [facility] Creatinine [Mass/Vol] 0.70 mg/dL 0.55-1.02 [facility] GFR/1.73 sq M.predicted MDRD (S/P/Bld) [Vol rate/Area] mL/min/{1.73_m2} >=60 [facility] Glucose [Mass/Vol] 103 mg/dL 74-106 [facility] Potassium [Moles/Vol] 3.7 mmol/L 3.5-5.1 [facility] Protein [Mass/Vol] 7.4 g/dL 6.4-8.2 [facility] Sodium [Moles/Vol] 136 mmol/L 136-145 [facility] Urea nitrogen [Mass/Vol] 10.0 mg/dL 7.0-18.0 [facility] Urea nitrogen/Creatinine [Mass ratio] 14.3 mg/mg [facility] Bilirubin Ql (U) Negative NEGATIVE [facility] Glucose (U) [Mass/Vol] Negative NEGATIVE [facility] Ketones Ql (U) Negative NEGATIVE [facility] pH (U) 6.0 [pH] 5.0-9.0 [facility] Specific gravity (U) [Rel density] >=1.030 Abnormal 1.005-1.02 5 [facility] Urobilinogen Qn (U) 0.2 {Tamiko'U}/dL 0.2-1.0 [facility] Laboratory - Drug toxicology on 04-12-2024 Amphetamines Ql (U) Negative NEGATIVE [facility] Benzodiazepines Ql (U) Negative NEGATIVE [facility] Cocaine Ql (U) Negative NEGATIVE [facility] Opiates Ql (U) Negative NEGATIVE [facility] Phencyclidine Ql (U) Negative NEGATIVE [facility] Laboratory - Hematology and Cell [...] Ql (Urine sed) TRACE Abnormal NONE SEEN [facility] Nitrite Ql (U) Negative NEGATIVE [facility] Protein Ql (U) Negative NEG/TRACE [facility] Leukocytes [#/volume] correc carmelita for nucleated erythrocytes in Blood by Automated counon 04-12-2024 WBC corrected for nucl RBC Auto (Bld) [#/Vol] 9.9 10 3/uL 4.0-11.0 [facility] WBC corrected for nucl RBC Auto (Bld) [#/Vol] Leukocytes [#/volume] corrected for nucleated erythrocytes in Blood by Automated coun 4.0-11.0 [facility] Lymphocytes Auto (Bld) [#/Vo l]on 04-12-2024 Lymphocytes (Bld) [#/Vol] 3.5 10 3/uL 1.2-3.8 [facility] Lymphocytes (Bld) [#/Vol] Lymphocytes [#/volume] in Blood by Automated count 1.2-3.8 [facility] Lymphocytes/100 WBC Auto (Bl d)on 04-12-2024 Lymphocytes/100 WBC (Bld) 35.5 % 20.5-60.0 [facility] Lymphocytes/100 WBC (Bld) Lymphocytes/100 leukocytes in Blood by Automated count 20.5-60.0 [facility] MCH Auto (RBC) [Entitic mass ]on 04-12-2024 MCH (RBC) [Entitic mass] 24.5 pg Low 26.7-34.0 [facility] MCH (RBC) [Entitic mass] MCH [Entitic mass] by Automated count Low 26.7-34.0 [facility] MCHC Auto (RBC) [Mass/Vol]on 04-12-2024 MCHC (RBC) [Mass/Vol] 30.6 g/dL 29.9-35.2 [facility] MCHC (RBC) [Mass/Vol] MCHC [Mass/volume] by Automated count 29.9-35.2 [facility] MCV Auto (RBC) [Entitic vol] on 04-12-2024 MCV (RBC) [Entitic vol] 80.1 fL Low 81.0-99.0 [facility] MCV (RBC) [Entitic vol] MCV [Entitic vol ume] by Automated count Low 81.0-99.0 [facility] Methadone [Presence] in Urin e by Screen methodon 04-12-2024 Methadone Screen Ql (U) Negative NEGATIVE [facility] Methadone Screen Ql (U) Methadone [Prese nce] in Urine by Screen method NEGATIVE [facility] Monocytes Auto (Bld) [#/Vol] on 04-12-2024 Monocytes (Bld) [#/Vol] 0.5 10 3/uL 0.3-0.8 [facility] Monocytes (Bld) [#/Vol] Automated blood monocyte count 0.3-0.8 [facility] Monocytes/100 WBC Auto (Bld) on 04-12-2024 Monocytes/100 WBC (Bld) 4.7 % 1.7-12.0 [facility] Monocytes/100 WBC (Bld) Automated monocyte % 1. 7-12.0 [facility] Neutrophils Auto (Bld) [#/Vo l]on 04-12-2024 Neutrophils (Bld) [#/Vol] 5.7 10 3/uL 1.4-6.5 [facility] Neutrophils (Bld) [#/Vol] Neutrophils [#/volume] in Blood by Automated count 1.4-6.5 [facility] Neutrophils/100 WBC Auto (Bl d)on 04-12-2024 Neutrophils/100 WBC (Bld) 57.9 % 43.0-75.0 [facility] Neutrophils/100 WBC (Bld) Automated neutrophil % 43.0-75.0 [facility] No Panel Informationon 04-12 Acetaminophen Level <2.0 ug/mL Low 10.0-30.0 [facility] Eosinophils # (Auto) 0.1 10 3/uL 0.0-0.7 [facility] Ethyl Alcohol Level <3 mg/dL [facility] Comment on above: NOTE: 80 mg/dl is th e legal limit for a blood alcohol level Immature Granulocyte # (Auto) 0.03 10 3/uL 0.00-0.03 [facility] Salicylates Level <2.8 mg/dL <=19.9 [facility] Urine Bacteria SMALL #/HPF Abnormal NONE SEEN [facility] Urine Barbiturates Screen Negative NEGATIVE [facility] Urine Culture Reflexed YES [facility] Urine Marijuana (THC) Screen Negative NEGATIVE [facility] Urine Methamphetamines Screen Negative NEGATIVE [facility] Urine Occult Blood Negative NEGATIVE [facility] Urine Other Casts NONE SEEN #/LPF NONE SEEN [facility] Urine Other Crystals None Seen #/HPF [...] fL 9.5-13.5 [facility] Platelet mean volume (Bld) [Entitic vol] Platelet mean volume [Entitic volume] in Blood by Automated count 9.5-13.5 [facility] Platelets Auto (Bld) [#/Vol] on 04-12-2024 Platelets (Bld) [#/Vol] 299 10 3/uL 150-450 [facility] Platelets (Bld) [#/Vol] Platelets [#/vol ume] in Blood by Automated count 150-450 [facility] RBC Auto (Bld) [#/Vol]on RBC (Bld) [#/Vol] 4.73 10 6/uL 4.20-5.40 [facility] RBC (Bld) [#/Vol] Erythrocytes [#/volu me] in Blood by Automated count 4.20-5.40 [facility] Serum or plasma albumin/glob ulin mass ratioon 04-12-2024 Albumin/Globulin [Mass ratio] 0.8 {ratio} [facility] Albumin/Globulin [Mass ratio] Serum or plasma albumin/globulin mass ratio [facility] Serum or plasma anion gap de terminationon 04-12-2024 Anion gap [Moles/Vol] 10.0 mmol/L [facility] Anion gap [Moles/Vol] Serum or plasma an ion gap determination [facility] Urine tricyclic antidepressa nt measurementon 04-12-2024 Tricyclic antidepressants (U) [Mass/Vol] Negative NEGATIVE [facility] Tricyclic antidepressants (U) [Mass/Vol] Urine tricyclic antidepressant measurement NEGATIVE [facility] oxyCODONE+oxyMORphone [Prese nce] in Urine by Screen methodon 04-12-2024 oxyCODONE+oxyMORphone Screen Ql (U) Negative NEGATIVE [facility] oxyCODONE+oxyMORphone Screen Ql (U) oxyCODONE+oxyMORphone [Presence] in Urine by Screen method NEGATIVE [facility] Basophils Auto (Bld) [#/Vol] on 11-03-2023 Basophils (Bld) [#/Vol] 0.0 10 3/uL 0.0-0.1 [facility] Basophils/100 WBC Auto (Bld) on 11-03-2023 Basophils/100 WBC (Bld) 0.5 % 0.2-2.0 [facility] Eosinophils/100 WBC Auto (Bl d)on 11-03-2023 [...] 11-03-2023 Globulin (S) [Mass/Vol] 4.0 g/dL [facility] Hematocrit Auto (Bld) [Volum e fraction]on [...] types (16,18,31,33,35,39,45,51,52,56,58,59,66,68)without differentiation.Performed at: = - [facility] [id number] Director: Monse Cardona MD, Phone: [phone] at: [facility] [id number] Director: Monse Cardona MD, Phone: [phone] Iron binding capacity [Mass/ volume] in Serum or Plasmaon 11-03-2023 Iron binding capacity [Mass/Vol] 512.0 ug/dL 250.0-450. 0 [facility] Iron saturation [Mass Fracti on] in Serum or Plasmaon 11-03-2023 Iron saturation [Mass fraction] 2.7 % [facility] Laboratory - Chemistry and C hemistry - challengeon 11-03-2023 Albumin [Mass/Vol] 3.1 g/dL 3.4-5.0 [facility] ALP [Catalytic activity/Vol] 63 U/L 46-116 [facility] ALT [Catalytic activity/Vol] 29 U/L 14-59 [facility] AST [Catalytic activity/Vol] 18 U/L 15-37 [facility] Bilirubin [Mass/Vol] 0.2 mg/dL 0.2-1.0 [facility] Calcium [Mass/Vol] 8.7 mg/dL 8.5-10.1 [facility] Chloride [Moles/Vol] 102 mmol/L 98-107 [facility] CO2 [Moles/Vol] 27.6 mmol/L 21.0-32.0 [facility] Creatinine [Mass/Vol] 0.70 mg/dL 0.55-1.02 [facility] Ferritin [Mass/Vol] 6.0 ng/mL 8.0-252.0 [facility] GFR/1.73 sq M.predicted MDRD (S/P/Bld) [Vol rate/Area] mL/min/{1.73_m2} >=60 [facility] Glucose [Mass/Vol] 103 mg/dL 74-106 [facility] Iron [Mass/Vol] 14.0 ug/dL 50.0-170.0 [facility] Potassium [Moles/Vol] 3.8 mmol/L 3.5-5.1 [facility] Protein [Mass/Vol] 7.1 g/dL 6.4-8.2 [facility] Sodium [Moles/Vol] 139 mmol/L 136-145 [facility] Urea nitrogen [Mass/Vol] 11.0 mg/dL 7.0-18.0 [...] 11-03-2023 MCHC (RBC) [Mass/Vol] 29.9 g/dL 29.9-35.2 [facility] MCV Auto (RBC) [Entitic vol] on 11-03-2023 MCV (RBC) [Entitic vol] 82.9 fL 81.0-99.0 [facility] Monocytes Auto (Bld) [#/Vol] on 11-03-2023 Monocytes (Bld) [#/Vol] 0.4 10 3/uL 0.3-0.8 [facility] Monocytes/100 WBC Auto (Bld) on 11-03-2023 Monocytes/100 WBC (Bld) 5.6 % 1.7-12.0 [facility] Neutrophils Auto (Bld) [#/Vo l]on 11-03-2023 Neutrophils (Bld) [#/Vol] 4.3 10 3/uL 1.4-6.5 [facility] Neutrophils/100 WBC Auto (Bl d)on 11-03-2023 Neutrophils/100 WBC (Bld) 58.5 % 43.0-75.0 [facility] No Panel Informationon 11-02 Eosinophils # (Auto) 0.1 10 3/uL 0.0-0.7 [facility] Immature Granulocyte # (Auto) 0.03 10 3/uL 0.00-0.03 [facility] HPV High Risk Other Comment Note . [facility] Comment on above: TESTS RESULT FLAG UN ITS REF RANGE LAB -DIAGNOSIS: 02 NEGATIVE FOR INTRAEPITHELIAL LESION OR MALIGNANCY.Specimen adequacy: 02 Satisfactory for evaluation. Endocervical and/or squamous metaplastic cells (endocervical component) are present.Performed by: Mikhail Escalante [employer]rentice (ASCP). 02Note: Note 02 The Pap smear [...] High <-Panic Low,>-Panic High,A-Abnormal,AA-Critical Abnormal ------Performed at:[address] [id number] Monse Cardona MD, Reference Lab Test Patient Age Note . [facility] Comment on above: TESTS RESULT FLAG UN ITS REF RANGE LAB - Clinician Provided Cytology Information Source.............Cervix;Endocervix No. of containers..01 ThinPrep VialAge Jean-Pierre YOON Elise... 31 FLAG LEGEND: L-Low Normal,H-High Normal,LL-Alert Low,HH-Alert High <-Panic Low,>-Panic High,A-Abnormal,AA-Critical Abnormal ------Performed at:01 =G [facility] [place] [address] Monse Cardona MD, Platelet mean volume Auto (B ld) [Entitic vol]on 11-03-2023 Platelet mean volume (Bld) [Entitic vol] 9.6 fL 9.5-13.5 [facility] Platelets Auto (Bld) [#/Vol] on 11-03-2023 Platelets (Bld) [#/Vol] 323 10 3/uL 150-450 [facility] RBC Auto (Bld) [#/Vol]on RBC (Bld) [#/Vol] 3.15 10 6/uL 4.20-5.40 [facility] Serum or plasma albumin/glob ulin mass ratioon 11-03-2023 Albumin/Globulin [Mass ratio] 0.8 {ratio} [facility] Serum or plasma anion gap de terminationon 11-03-2023 Anion gap [Moles/Vol] 13.2 mmol/L [facility] Basophils Auto (Bld) [#/Vol] on 10-30-2023 Basophils (Bld) [#/Vol] 0.0 10 3/uL 0.0-0.1 [facility] Basophils/100 WBC Auto (Bld) on 10-30-2023 Basophils/100 WBC (Bld) 0.6 % 0.2-2.0 [facility] Eosinophils/100 WBC Auto (Bl d)on 10-30-2023 [facility] HCG ( test) Bello d Ql (U)on 10-30-2023 HCG ( test) [...] challengeon 10-30-2023 Calcium [Mass/Vol] 8.5 mg/dL 8.5-10.1 [facility] Chloride [Moles/Vol] 101 mmol/L 98-107 [facility] CO2 [Moles/Vol] 28.8 mmol/L 21.0-32.0 [facility] Creatinine [Mass/Vol] 0.62 mg/dL 0.55-1.02 [facility] GFR/1.73 sq M.predicted MDRD (S/P/Bld) [Vol rate/Area] mL/min/{1.73_m2} >=60 [facility] Glucose [Mass/Vol] 104 mg/dL 74-106 [facility] Potassium [Moles/Vol] 4.0 mmol/L 3.5-5.1 [facility] Sodium [Moles/Vol] 137 mmol/L 136-145 [facility] Urea nitrogen [Mass/Vol] 8.0 mg/dL 7.0-18.0 [...] 10-30-2023 MCHC (RBC) [Mass/Vol] 29.7 g/dL 29.9-35.2 [facility] MCV Auto (RBC) [Entitic vol] on 10-30-2023 MCV (RBC) [Entitic vol] 84.2 fL 81.0-99.0 [facility] Monocytes Auto (Bld) [#/Vol] on 10-30-2023 Monocytes (Bld) [#/Vol] 0.3 10 3/uL 0.3-0.8 [facility] Monocytes/100 WBC Auto (Bld) on 10-30-2023 Monocytes/100 WBC (Bld) 3.7 % 1.7-12.0 [facility] Neutrophils Auto (Bld) [#/Vo l]on 10-30-2023 Neutrophils (Bld) [#/Vol] 4.6 10 3/uL 1.4-6.5 [facility] Neutrophils/100 WBC Auto (Bl d)on 10-30-2023 Neutrophils/100 WBC (Bld) 63.9 % 43.0-75.0 [facility] No Panel Informationon 10-29 Eosinophils # (Auto) 0.1 10 3/uL 0.0-0.7 [facility] Immature Granulocyte # (Auto) 0.03 10 [...] RBC (Bld) [#/Vol] 3.16 10 6/uL 4.20-5.40 [facility] Serum or plasma anion gap de terminationon 10-30-2023 Anion gap [Moles/Vol] 11.2 mmol/L [facility] HCG ( test) IA.rapi d Ql (U)on 10-06-2023 HCG ( test) Ql (U) Negative NEGATIVE [facility] COVID + FLU Quick Testingon 07-07-2023 SARS-CoV-2 (COVID-19) RNA SURI+probe Ql (Unsp spec) Negative [employer] [facility] [employer] Other COVID + FLU Quick Testing Negative [employer] Other Alanine aminotransferase [En zymatic activity/volume] in Serum or PlasmaOrdered By: Celio Mullins on 07-03-2023 ALT [Catalytic activity/Vol] 22 U/L 7-52 [facility] Albumin [Mass/volume] in Ser um or Plasma by Bromocresol green (BCG) dye binding methoOrdered By: Celio Mullins on 07-03-2023 Albumin BCG dye [Mass/Vol] 4.4 g/dL 3.5-5.7 [facility] Alkaline phosphatase [Enzyma tic activity/volume] in Serum or PlasmaOrdered By: Celio Mullins on 07-03-2023 ALP [Catalytic activity/Vol] 68 U/L 34-104 [facility] Aspartate aminotransferase [ Enzymatic activity/volume] in Serum or PlasmaOrdered By: Celio Mullins on 07-03-2023 AST [Catalytic activity/Vol] 18 U/L 13-39 [facility] Bilirubin.total [Mass/volume ] in Serum or PlasmaOrdered By: Celio Mullins on 07-03-2023 Bilirubin [Mass/Vol] 0.4 mg/dL 0.3-1.0 [facility] Calcium [Mass/volume] in Ser um or PlasmaOrdered By: Celio Mullins on 07-03-2023 Calcium [Mass/Vol] 9.4 mg/dL 8.6-10.3 [facility] Carbon dioxide, total [Moles /volume] in Serum or PlasmaOrdered By: Celio Mullins on 07-03-2023 CO2 [Moles/Vol] 30.1 mmol/L 21.0-31.0 [facility] Chloride [Moles/volume] in S marta or PlasmaOrdered By: Celio Mullins on 07-03-2023 Chloride [Moles/Vol] 105 mmol/L 98-107 [facility] Cholesterol [Mass/volume] in Serum or PlasmaOrdered By: Celio Mullins on 07-03-2023 Cholesterol [Mass/Vol] 126 mg/dL 140-200 [facility] Comment on above: Chol less than [...] 18 mg/dL [facility] Creatinine [Mass/volume] in Serum or PlasmaOrdered By: Celio Mullins on 07-03-2023 Creatinine [Mass/Vol] 0.63 mg/dL 0.60-1.20 [facility] Globulin Calc (S) [Mass/Vol] Ordered By: Celio Mullins on 07-03-2023 Globulin (S) [Mass/Vol] 3.1 g/dL [facility] Glucose [Mass/volume] in Ser um or PlasmaOrdered By: Celio Mullins on 07-03-2023 Glucose [Mass/Vol] 97 mg/dL 70-100 [facility] Comment on above: ADA recommended [...] on 07-03-2023 Potassium [Moles/Vol] 4.3 mmol/L 3.5-5.1 [facility] Protein [Mass/volume] in Ser um or PlasmaOrdered By: Celio Mullins on 07-03-2023 Protein [Mass/Vol] 7.5 g/dL 6.4-8.9 [facility] Serum or plasma albumin/glob ulin mass ratioOrdered By: Celio Mullins on 07-03-2023 Albumin/Globulin [Mass ratio] 1.4 {ratio} [facility] Serum or plasma anion gap de terminationOrdered By: Celio Mullins on 07-03-2023 Anion gap [Moles/Vol] 10.2 mmol/L 6.0-15.0 [facility] Serum or plasma high density lipoprotein (HDL) cholesterol measurementOrdered By: Celio Mullins on 07-03-2023 Cholesterol in HDL [Mass/Vol] 39 mg/dL 23-92 [facility] Comment on above: HDL CHOL ATP-III CLA SSIFICATION Cardiovascular RiskHDL > or equal to 60 mg/dL LOWHDL < 40 mg/dL HIGH Serum or plasma total choles terol/high density lipoprotein (HDL) cholesterol mass ratOrdered By: Celio Mullins on 07-03-2023 Cholesterol.total/Mali sterol in HDL [Mass ratio] 3.2 {ratio} <5.0 [facility] Sodium [Moles/volume] in Ser um or PlasmaOrdered By: Celio Mullins on 07-03-2023 Sodium [Moles/Vol] 141 mmol/L 136-145 [facility] Triglyceride [Mass/volume] i n Serum or PlasmaOrdered By: Celio Mullins on 07-03-2023 Triglyceride [Mass/Vol] 92 mg/dL 0-149 [facility] Comment on above: TRIG ATP III CLASSIF ICATIONTRIG less than 150 mg/dL NormalTRIG 150-199 mg/dL Borderline highTRIG 200-500 mg/dL High TRIG greater than 500 mg/dL Very highStandard traceable to the Center for Disease Conrtrol and Prevention (CDC) test method. Urea nitrogen [Mass/volume] in Serum or PlasmaOrdered By: Celio Mullins on 07-03-2023 Urea nitrogen [Mass/Vol] 13 mg/dL 7- [facility] Alanine aminotransferase [En zymatic activity/volume] in Serum or PlasmaOrdered By: Celio Mullins on 07-01-2023 ALT [Catalytic activity/Vol] 21 U/L [facility] Albumin [Mass/volume] in Ser um or Plasma by Bromocresol green (BCG) dye binding methoOrdered By: Celio Mullins on 07-01-2023 Albumin BCG dye [Mass/Vol] 4.6 g/dL 3.5-5.7 [facility] Alkaline phosphatase [Enzyma tic activity/volume] in Serum or PlasmaOrdered By: Celio Mullins on 07-01-2023 ALP [Catalytic activity/Vol] 72 U/L 34-104 [facility] Apolipoprotein B [Mass/volum e] in Serum or PlasmaOrdered By: Celio Mullins on 07-01-2023 Apolipoprotein B [Mass/Vol] 83 mg/dL <90 [facility] Comment on above: Desirable < 90 Charissa almanza High 90 - 99 High 100 - 130 Very High >130 ASCVD RISK THERAPEUTIC TARGET CATEGORY APO B (mg/dL) Very High Risk <80 (if extreme risk <70) High Risk <90 Moderate Risk <90Performed at: [address] [id number] Director: Jeanna Case MD, Phone: [phone] Aspartate aminotransferase [ Enzymatic activity/volume] in Serum or PlasmaOrdered By: Celio Mullins on 07-01-2023 AST [Catalytic activity/Vol] 19 U/L 13-39 [facility] Bilirubin.total [Mass/volume ] in Serum or PlasmaOrdered By: Celio Mullins on 07-01-2023 Bilirubin [Mass/Vol] 0.4 mg/dL 0.3-1.0 [facility] Calcium [Mass/volume] in Ser um or PlasmaOrdered By: Celio Mullins on 07-01-2023 Calcium [Mass/Vol] 9.8 mg/dL 8.6-10.3 [facility] Carbon dioxide, total [Moles /volume] in Serum or PlasmaOrdered By: Celio Mullins on 07-01-2023 CO2 [Moles/Vol] 25.3 mmol/L 21.0-31.0 [facility] Chloride [Moles/volume] in S marta or PlasmaOrdered By: Celio Mullins on 07-01-2023 Chloride [Moles/Vol] 105 mmol/L 98-107 [facility] Creatinine [Mass/volume] in Serum or PlasmaOrdered By: Celio Mullins on 07-01-2023 Creatinine [Mass/Vol] 0.64 mg/dL 0.60-1.20 [facility] Globulin Calc (S) [Mass/Vol] Ordered By: Celio Mullins on 07-01-2023 Globulin (S) [Mass/Vol] 3.2 g/dL [facility] Glucose [Mass/volume] in Ser um or PlasmaOrdered By: Celio Mullins on 07-01-2023 Glucose [Mass/Vol] 95 mg/dL 70-100 [facility] Comment on above: ADA recommended [...] HbA1c (Bld) [Mass fraction] 5.7 % 4.3-5.6 [facility] Comment [...] on 07-01-2023 Potassium [Moles/Vol] 3.8 mmol/L 3.5-5.1 [facility] Protein [Mass/volume] in Ser um or PlasmaOrdered By: Celio Mullins on 07-01-2023 Protein [Mass/Vol] 7.8 g/dL 6.4-8.9 [facility] Serum or plasma albumin/glob ulin mass ratioOrdered By: Celio Mullins on 07-01-2023 Albumin/Globulin [Mass ratio] 1.4 {ratio} [facility] Serum or plasma anion gap de terminationOrdered By: Celio Mullins on 07-01-2023 Anion gap [Moles/Vol] 11.5 mmol/L 6.0-15.0 [facility] Serum or plasma lipoprotein a measurement [...] genetic factors on Lp(a) across ethnicities.Performed at: [address] [id number] Director: Cassius Zhong PhD, Phone: [phone] Sodium [Moles/volume] in Ser um or PlasmaOrdered By: Celio Mullins on 07-01-2023 Sodium [Moles/Vol] 138 mmol/L 136-145 [facility] Urea nitrogen [Mass/volume] in Serum or PlasmaOrdered By: Celio Mullins on 07-01-2023 Urea nitrogen [Mass/Vol] 16 mg/dL 03-11 [facility] COVID Quick Testingon 2022 Result Negative [employer] Other SARS-CoV-2 (COVID-19) RNA NA A+probe Ql (Resp)on 02-11-2023 SARS-CoV-2 (COVID-19) RNA SURI+probe Ql (Unsp spec) Negative [employer] Other DHEA-SULFATEon 01-01-2023 DHEA-Sulfate 95.3 ug/dL Normal 84.8-378.0 [facility] Comment on above: Performed By: #### D RIMA #### [facility] [address] [place] [address] Dr. Kaushik Palomares FSHon 01-01-2023 FSH 4.6 mIU/mL Normal [facility] Comment on above: Result Comment: Adul t Female: Follicular phase 3.5 - 12.5 Ovulation phase 4.7 - 21.5 Luteal phase 1.7 - 7.7 Postmenopausal 25.8 - 134.8 Performed By: #### C BC #### [facility] [address] [place] [address] Dr. Kaushik Palomares LUTEINIZING HORMONE (LH)on 01-01-2023 LH 3.5 mIU/mL Normal [facility] Comment on above: Result Comment: Adul t Female: Follicular phase 2.4 - 12.6 Ovulation phase 14.0 - 95.6 Luteal phase 1.0 - 11.4 Postmenopausal 7.7 - 58.5 Performed By: #### L BCLH #### [facility] [address] [place] [address] Dr. Kaushik Palomares CBC AUTO DIFFon 12-31-2022 BASO # 0.1 103/ul Normal 0.0-0.1 [facility] Comment on above: Performed By: #### C BC #### [facility] [address] [place] [address] Dr. Kaushik Palomares Basophils/100 WBC (Bld) 0.8 % Normal 0.2-2.0 [facility] Comment on above: Performed By: #### C BC #### [facility] [address] [place] [address] Dr. Kaushik Palomares EO # 0.1 103/ul Normal 0.0-0.7 [facility] Comment on above: Performed By: #### C BC #### [facility] [address] [place] [address] Dr. Kaushik Palomares Eosinophils/100 WBC (Bld) 1.7 % Normal 0.9-7.0 [facility] Comment on above: Performed By: #### C BC #### [facility] [address] [place] [address] Dr. Kaushik Palomares Erythrocyte distribution width (RBC) [Ratio] 12.8 % Normal 11.0-15.0 [facility] Comment on above: Performed By: #### C BC #### [facility] [address] [place] [address] Dr. Kaushik Palomares Hematocrit (Bld) [Volume fraction] 33.0 % Critically low 36.0-48.0 [facility] Comment on above: Performed By: #### C BC #### [facility] [address] [place] [address] Dr. Kaushik Palomares Hemoglobin (Bld) [Mass/Vol] 11.0 g/dL Critically low 12.0-16.0 [facility] Comment on above: Performed By: #### C BC #### [facility] [address] [place] [address] Dr. Kaushik Palomares IG # 0.03 10e3/ul Normal 0.00-0.03 [facility] Comment on above: Performed By: #### C BC #### [facility] [address] [place] [address] Dr. Kaushik Palomares IG % 0.5 % Normal 0.0-0.5 [facility] Comment on above: Performed By: #### C BC #### [facility] [address] [place] [address] Dr. Kaushik Palomares LYMPH # 2.4 103/ul Normal 1.2-3.8 [facility] Comment on above: Performed By: #### C BC #### [facility] [address] [place] [address] Dr. Kaushik Palomares Lymphocytes/100 WBC (Bld) 36.6 % Normal 20.5-60.0 [facility] Comment on above: Performed By: #### C BC #### [facility] [address] [place] [address] Dr. Kaushik Palomares MANUAL DIFF REQ NO Normal [facility] Comment on above: Performed By: #### C BC #### [facility] [address] [place] [address] Dr. Kaushik Palomares MCH (RBC) [Entitic mass] 29.0 pg Normal 26.7-34.0 [facility] Comment on above: Performed By: #### C BC #### [facility] [address] [place] [address] Dr. Kaushik Palomares MCHC (RBC) [Mass/Vol] 33.3 g/dL Normal 29.9-35.2 [facility] Comment on above: Performed By: #### C BC #### [facility] [address] [place] [address] Dr. Kaushik Palomares MCV (RBC) [Entitic vol] 87.1 fL Normal 81.0-99.0 [facility] Comment on above: Performed By: #### C BC #### [facility] [address] [place] [address] Dr. Kaushik Palomares MONO # 0.2 103/ul Critically low 0.3-0.8 [facility] Comment on above: Performed By: #### C BC #### [facility] [address] [place] [address] Dr. Kaushik Palomares Monocytes/100 WBC (Bld) 3.6 % Normal 1.7-12.0 [facility] Comment on above: Performed By: #### C BC #### [facility] [address] [place] [address] Dr. Kaushik Palomares NEUT # 3.7 103/ul Normal 1.4-6.5 [facility] Comment on above: Performed By: #### C BC #### [facility] [address] [place] [address] Dr. Kaushik Palomares Neutrophils/100 WBC (Bld) 56.8 % Normal 43.0-75.0 [facility] Comment on above: Performed By: #### C BC #### [facility] [address] [place] [address] Dr. Kaushik Palomares Platelet mean volume (Bld) [Entitic vol] 9.8 fL Normal 9.5-13.5 [facility] Comment on above: Performed By: #### C BC #### [facility] [address] [place] [address] Dr. Kaushik Palomares PLT 234 103/ul Normal 150-450 [facility] Comment on above: Performed By: #### C BC #### [facility] [address] [place] [address] Dr. Kaushik Palomares RBC 3.79 106/ul Critically low 4.20-5.40 [facility] Comment on above: Performed By: #### C BC #### [facility] [address] [place] [address] Dr. Kaushik Palomares WBC 6.5 103/ul Normal 4.0-11.0 [facility] Comment on above: Performed By: #### C BC #### [facility] [address] [place] [address] Dr. Kaushik Palomares FREE T4on 12-31-2022 Free T4 [Mass/Vol] 0.79 ng/dL Normal 0.76-1.46 [facility] Comment on above: Performed By: #### F T4 #### [facility] [address] [place] [address] Dr. Kaushik Palomares GLYCOHEMOGLOBIN A1Con 2022 ADA RECOMMENDATION SEE BELOW Normal [facility] Comment on above: Result Comment: ADA RECOMMENDED LIMIT 4.0 - 6.0 ADA THERAPEUTIC TARGET < 7.0 ACTION SUGGESTED > 7.0 Performed By: #### A 1C #### [facility] [address] [address] [address] Kaushik Palomares Glucose [Mass/Vol] 111 mg/dL Normal [facility] Comment on above: Performed By: #### A 1C #### [facility] [address] [address] [address] Kaushik Palomares HbA1c (Bld) [Mass fraction] 5.5 % Normal 4.5-6.2 [facility] Comment on above: Performed By: #### A 1C #### [facility] [address] [address] [address] Kaushik Palomares TSHon 12-31-2022 TSH 1.114 uIU/mL Normal 0.358-3.74 0 [facility] Comment on above: Performed By: #### C BC #### [facility] [address] [place] [address] Dr. Kaushik Palomares US PELVIS AND TRANSVAGon [...] by: SUGEY MACDONALD Date: 2022-11-26 15:58 Normal [facility] XR SACRUM_COCCYXon 3 XR SACRUM_COCCYX EXAMINATION: [...] by: SUGEY MACDONALD Date: 2022-11-08 10:01 Normal [facility] PAP ACOG PANEL 2: 30 to 65on 11-05-2022 . . Normal [facility] Comment on above: Result Comment: Perf ormed at: WB Performed By: #### C BC #### [facility] [address] [address] [address] Kaushik Palomares Age Gdln ACOG Testing - Normal [facility] Comment on above: Performed By: #### C BC #### [facility] [address] [address] [address] Kaushik Palomares DIAGNOSIS: Comment Normal [facility] Comment on above: Result Comment: NEGA TIVE FOR INTRAEPITHELIAL LESION OR MALIGNANCY. Performed at: WB Performed By: #### C BC #### [facility] [address] [address] [address] Kaushik Palomares HPV Aptima Negative Normal Negative [facility] Comment on above: Result Comment: This nucleic acid amplification test detects fourteen high-risk HPV types (16,18,31,33,35,39,45,51,52,56,58,59,66,68) without differentiation. Performed at: =G Performed By: #### C BC #### [facility] [address] [address] [address] Kaushik Palomares HPV Genotype Reflex Comment Normal [facility] Comment on above: Result Comment: Crit eria not met, HPV Genotype not performed. Performed at: WB Performed By: #### C BC #### [facility] [address] [place] [address] Dr. Kaushik Palomares Methodology: Comment Normal [facility] Comment on above: Result Comment: This liquid based ThinPrep(R) pap test was screened with the use of an image guided system. Performed at: WB Performed By: #### C BC #### [facility] [address] [place] [address] Dr. Kaushik Palomares Note: Comment Normal [facility] Comment on above: Result Comment: The [...] By: #### C BC #### [facility] [address] [place] [address] Dr. Kaushik Palomares Performed by: Comment Normal [facility] Comment on above: Result Comment: Robi Graham, Piano Mechanic Apprentice (ASCP) Performed at: WB Performed By: #### C BC #### [facility] [address] [place] [address] Dr. Kaushik Palomares Specimen adequacy: Comment Normal [facility] Comment on above: Result Comment: Sati sfactory for evaluation. Endocervical and/or squamous metaplastic cells (endocervical component) are present. Performed at: WB Performed By: #### C BC #### [facility] [address] [place] [address] Dr. Kaushik Palomares COVID/FLU RT-PCRon 2 SARS-CoV-2 (COVID-19) RNA SURI+probe Ql (Unsp spec) Negative [employer] Other COVID/FLU RT-PCR Negative [employer] Other HCG-BETA SUBUNIT QUANTon hCG,Beta Subunit,Qnt,Serum <1 Normal [facility] Comment on above: Result Comment: Fema le (Non-) 0 - 5 (Postmenopausal) 0 - 8 . Female () Weeks of Gestation 3 6 - 71 4 10 - 750 5 217 - 7174 6 028 - 05978 7 [phone] 8 04636 -[phone] 9 [phone] -[id number] 10 83224 -056371 12 16147 -927905 14 16369 - 84476 15 84949 - 87673 16 2908 - 54900 17 6784 - 40087 18 7214 - 22168 Rg ECLIA methodology Performed By: #### H CGSUB #### [facility] [address] [place] [address] Dr. Kaushik Palomares T4 LABCORPon 01-22-2022 T4 [Mass/Vol] 7.8 ug/dL Normal 4.5-12.0 [facility] Comment on above: Performed By: #### T 4LC #### [facility] [address] [place] [address] Dr. Kaushik Palomares CBC AUTO DIFFon 01-21-2022 BASO # 0.1 103/ul Normal 0.0-0.1 [facility] Comment on above: Performed By: #### C BC #### [facility] [address] [place] [address] Dr. Kaushik Palomares Basophils/100 WBC (Bld) 0.6 % Normal 0.2-2.0 [facility] Comment on above: Performed By: #### C BC #### [facility] [address] [place] [address] Dr. Kaushik Palomares EO # 0.1 103/ul Normal 0.0-0.7 [facility] Comment on above: Performed By: #### C BC #### [facility] [address] [place] [address] Dr. Kaushik Palomares Eosinophils/100 WBC (Bld) 1.2 % Normal 0.9-7.0 [facility] Comment on above: Performed By: #### C BC #### [facility] [address] [place] [address] Dr. Kaushik Palomares Erythrocyte distribution width (RBC) [Ratio] 13.3 % Normal 11.0-15.0 [facility] Comment on above: Performed By: #### C BC #### [facility] [address] [place] [address] Dr. Kaushik Palomares Hematocrit (Bld) [Volume fraction] 40.0 % Normal 36.0-48.0 [facility] Comment on above: Performed By: #### C BC #### [facility] [address] [place] [address] Dr. Kaushik Palomares Hemoglobin (Bld) [Mass/Vol] 12.7 g/dL Normal 12.0-16.0 [facility] Comment on above: Performed By: #### C BC #### [facility] [address] [place] [address] Dr. Kaushik Palomares IG # 0.02 10e3/ul Normal 0.00-0.03 [facility] Comment on above: Performed By: #### C BC #### [facility] [address] [place] [address] Dr. Kaushik Palomares IG % 0.2 % Normal 0.0-0.5 [facility] Comment on above: Performed By: #### C BC #### [facility] [address] [place] [address] Dr. Kaushik Palomares LYMPH # 3.0 103/ul Normal 1.2-3.8 [facility] Comment on above: Performed By: #### C BC #### [facility] [address] [place] [address] Dr. Kaushik Palomares Lymphocytes/100 WBC (Bld) 32.9 % Normal 20.5-60.0 [facility] Comment on above: Performed By: #### C BC #### [facility] [address] [place] [address] Dr. Kaushik Palomares MANUAL DIFF REQ NO Normal [facility] Comment on above: Performed By: #### C BC #### [facility] [address] [place] [address] Dr. Kaushik Palomares MCH (RBC) [Entitic mass] 28.5 pg Normal 26.7-34.0 [facility] Comment on above: Performed By: #### C BC #### [facility] [address] [place] [address] Dr. Kaushik Palomares MCHC (RBC) [Mass/Vol] 31.8 g/dL Normal 29.9-35.2 [facility] Comment on above: Performed By: #### C BC #### [facility] [address] [place] [address] Dr. Kaushik Palomares MCV (RBC) [Entitic vol] 89.7 fL Normal 81.0-99.0 [facility] Comment on above: Performed By: #### C BC #### [facility] [address] [place] [address] Dr. Kaushik Palomares MONO # 0.5 103/ul Normal 0.3-0.8 [facility] Comment on above: Performed By: #### C BC #### [facility] [address] [place] [address] Dr. Kaushik Palomares Monocytes/100 WBC (Bld) 5.1 % Normal 1.7-12.0 [facility] Comment on above: Performed By: #### C BC #### [facility] [address] [place] [address] Dr. Kaushik Palomares NEUT # 5.4 103/ul Normal 1.4-6.5 [facility] Comment on above: Performed By: #### C BC #### [facility] [address] [place] [address] Dr. Kaushik Palomares Neutrophils/100 WBC (Bld) 60.0 % Normal 43.0-75.0 [facility] Comment on above: Performed By: #### C BC #### [facility] [address] [place] [address] Dr. Kaushik Palomares Platelet mean volume (Bld) [Entitic vol] 9.3 fL Critically low 9.5-13.5 [facility] Comment on above: Performed By: #### C BC #### [facility] [address] [place] [address] Dr. Kaushik Palomares PLT 221 103/ul Normal 150-450 [facility] Comment on above: Performed By: #### C BC #### [facility] [address] [place] [address] Dr. Kaushik Palomares RBC 4.46 106/ul Normal 4.20-5.40 [facility] Comment on above: Performed By: #### C BC #### [facility] [address] [place] [address] Dr. Kaushik Palomares WBC 9.0 103/ul Normal 4.0-11.0 [facility] Comment on above: Performed By: #### C BC #### [facility] [address] [place] [address] Dr. Kaushik Palomares GLYCOHEMOGLOBIN A1Con 2021 ADA RECOMMENDATION SEE BELOW Normal [facility] Comment on above: Result Comment: ADA RECOMMENDED LIMIT 4.0 - 6.0 ADA THERAPEUTIC TARGET < 7.0 ACTION SUGGESTED > 7.0 Performed By: #### C BC #### [facility] [address] [place] [address] Dr. Kaushik Palomares Glucose [Mass/Vol] 94 mg/dL Normal [facility] Comment on above: Performed By: #### C BC #### [facility] [address] [place] [address] Dr. Kaushik Palomares HbA1c (Bld) [Mass fraction] 4.9 % Normal 4.5-6.2 [facility] Comment on above: Performed By: #### C BC #### [facility] [address] [place] [address] Dr. Kaushik Palomares LIPID PROFILEon 01-21-2022 CHOL-HDL RATIO NORM SEE BELOW Normal [facility] Comment on above: Result Comment: 3.3 - 4.4 LOW RISK 4.4 - 7.1 AVERAGE RISK 7.1 - 11.0 MODERATE RISK >11.0 HIGH RISK Performed By: #### L IPID, CMP, TSH #### [facility] [address] [place] [address] Dr. Kaushik Palomares Cholesterol [Mass/Vol] 168 mg/dL Normal <=200 [facility] Comment on above: Performed By: #### L IPID, CMP, TSH #### [facility] [address] [place] [address] Dr. Kaushik Palomares Cholesterol in HDL [Mass/Vol] 41 mg/dL Normal 40-60 [facility] Comment on above: Performed By: #### L IPID, CMP, TSH #### [facility] [address] [address] [address] Kaushik Palomares Cholesterol in LDL [Mass/Vol] 90.2 mg/dL Normal [facility] Comment on above: Performed By: #### L IPID, CMP, TSH #### [facility] [address] [address] [address] Kaushik Palomares Cholesterol.total/Mali sterol in HDL [Mass ratio] 4.1 {ratio} Normal [facility] Comment on above: Performed By: #### L IPID, CMP, TSH #### [facility] [address] [address] [address] Kaushik Palomares HDL NORMAL > or = 60 mg/dl - LO W CARDIOVASCULAR RISK <40 mg/dl - HIGH CARDIOVASCULAR RISK Normal [facility] Comment on above: Performed By: #### L IPID, CMP, TSH #### [facility] [address] [address] [address] Kaushik Palomares LDL CALC NORMAL SEE BELOW Normal [facility] Comment on above: Result Comment: <100 mg/dl OPTIMAL 100 - 129 mg/dl NEAR OR ABOVE OPTIMAL 130 - 159 mg/dl BORDERLINE HIGH 160 - 189 mg/dl HIGH >190 mg/dl VERY HIGH Performed By: #### L IPID, CMP, TSH #### [facility] [address] [address] [address] Kaushik Palomares Triglyceride [Mass/Vol] 184 mg/dL Critically high <=150 [facility] Comment on above: Performed By: #### L IPID, CMP, TSH #### [facility] [address] [address] [address] Kaushik Palomares VLDL CALC 36.8 mg/dL Normal [facility] Comment on above: Performed By: #### L IPID, CMP, TSH #### [facility] [address] [address] [address] Kaushik Palomares MICROALBUMIN, RAND URon 06-0 mALB 2.0 mg/L Normal <=30.0 [facility] Comment on above: Performed By: #### C BC #### [facility] [address] [address] [address] Kaushik Palomares PROF 14(COMP METB)on 022 Albumin [Mass/Vol] 3.7 g/dL Normal 3.4-5.0 [facility] Comment on above: Performed By: #### L IPID, CMP, TSH #### [facility] [address] [address] [address] Kaushik Palomares Albumin/Globulin [Mass ratio] 0.9 {ratio} Normal [facility] Comment on above: Performed By: #### L IPID, CMP, TSH #### [facility] [address] [place] [address] Dr. Kaushik Palomares ALP [Catalytic activity/Vol] 53 U/L Normal 46-116 [facility] Comment on above: Performed By: #### L IPID, CMP, TSH #### [facility] [address] [address] [address] Kaushik Palomares ALT [Catalytic activity/Vol] 44 U/L Normal 14-59 [facility] Comment on above: Performed By: #### L IPID, CMP, TSH #### [facility] [address] [place] [address] Dr. Kaushik Palomares Anion gap [Moles/Vol] 6.8 mmol/L Normal [facility] Comment on above: Performed By: #### L IPID, CMP, TSH #### [facility] [address] [place] [address] Dr. Kaushik Palomares AST [Catalytic activity/Vol] 22 U/L Normal 15-37 [facility] Comment on above: Performed By: #### L IPID, CMP, TSH #### [facility] [address] [place] [address] Dr. Kaushik Palomares Bilirubin [Mass/Vol] 0.3 mg/dL Normal 0.2-1.0 [facility] Comment on above: Performed By: #### L IPID, CMP, TSH #### [facility] [address] [place] [address] Dr. Kaushik Palomares Calcium [Mass/Vol] 9.2 mg/dL Normal 8.5-10.1 [facility] Comment on above: Performed By: #### L IPID, CMP, TSH #### [facility] [address] [address] [address] Kaushik Palomares Chloride [Moles/Vol] 102 mmol/L Normal 98-107 [facility] Comment on above: Performed By: #### L IPID, CMP, TSH #### [facility] [address] [address] [address] Kaushik Palomares CO2 [Moles/Vol] 31.4 mmol/L Normal 21.0-32.0 [facility] Comment on above: Performed By: #### L IPID, CMP, TSH #### [facility] [address] [address] [address] Kaushik Palomares Creatinine [Mass/Vol] 0.71 mg/dL Normal 0.55-1.02 [facility] Comment on above: Performed By: #### L IPID, CMP, TSH #### [facility] [address] [place] [address] Dr. Kaushik Palomares EGFR-AF GABONESE >60 Normal >=60 [facility] Comment on above: Performed By: #### L IPID, CMP, TSH #### [facility] [address] [address] [address] Kaushik Palomares EGFR-NON AF GABONESE >60 Normal >=60 [facility] Comment on above: Performed By: #### L IPID, CMP, TSH #### [facility] [address] [address] [address] Kaushik Palomares Globulin (S) [Mass/Vol] 4.2 g/dL Normal [facility] Comment on above: Performed By: #### L IPID, CMP, TSH #### [facility] [address] [address] [address] Kaushik Palomares Glucose [Mass/Vol] 93 mg/dL Normal 74-106 [facility] Comment on above: Performed By: #### L IPID, CMP, TSH #### [facility] [address] [place] [address] Dr. Kaushik Palomares Potassium [Moles/Vol] 4.2 mmol/L Normal 3.5-5.1 [facility] Comment on above: Performed By: #### L IPID, CMP, TSH #### [facility] [address] [place] [address] Dr. Kaushik Palomares Protein [Mass/Vol] 7.9 g/dL Normal 6.4-8.2 [facility] Comment on above: Performed By: #### L IPID, CMP, TSH #### [facility] [address] [place] [address] Dr. Kaushik Palomares Sodium [Moles/Vol] 136 mmol/L Normal 136-145 [facility] Comment on above: Performed By: #### L IPID, CMP, TSH #### [facility] [address] [place] [address] Dr. Kaushik Palomares Urea nitrogen [Mass/Vol] 11.0 mg/dL Normal 7.0-18.0 [facility] Comment on above: Performed By: #### L IPID, CMP, TSH #### [facility] [address] [place] [address] Dr. Kaushik Palomares Urea nitrogen/Creatinine [Mass ratio] 15.5 mg/mg Normal [facility] Comment on above: Performed By: #### L IPID, CMP, TSH #### [facility] [address] [place] [address] Dr. Kaushik Palomares TSHon 01-21-2022 TSH 1.298 uIU/mL Normal 0.358-3.74 0 [facility] Comment on above: Performed By: #### C BC #### [facility] [address] [place] [address] Dr. Kaushik Palomares TSH RANGE SEE BELOW Normal [facility] Comment on above: Result Comment: <0.3 4 UIU/ml HYPERTHYROID 0.34-5.60 UIU/ml EUTHYROID >5.60 UIU/ml HYPOTHYROID Performed By: #### C BC #### [facility] [address] [place] [address] Dr. Kaushik CHAUDHARY Quick Testingon 2020 Result Negative [employer] Other Quick Strepon 06-17-2021 S. pyogenes Org specific cx Ql (Throat) Negative [employer] Other Quick Strep [employer] Other Urinalysis - AUTOMATEDon Appearance (U) cloudy [employer] Other Bilirubin Ql (U) Negative [employer] Other Color (U) yellow [employer] Other Glucose Ql (U) Negative [employer] Other Hemoglobin Ql (U) large [employer] Other Ketones Ql (U) Negative [employer] Other Leukocyte esterase Test strip Ql (U) trace [employer] Other Nitrite Ql (U) Positive [employer] Other pH (U) 5.5 [pH] [employer] Other Protein Ql (U) 100 [employer] Other Specific gravity (U) [Rel density] 1.025 [employer] Other Urobilinogen (U) [Mass/Vol] 0.2 mg/dL [employer] Other Urinalysis - AUTOMATED No [employer] Other Urine Cultureon 05-31-2021 Urine Culture >100,000 [employer] Other Urine Culture <16 [employer] Other Urine Culture >16 [employer] Other Urine Culture <4 [employer] Other Urine Culture 8 [employer] Other Urine Culture <2 [employer] Other Urine Culture <1 [employer] Other Urine Culture >2 [employer] Other Urine Culture <0.5 [employer] Other Urine Culture >8 [employer] Other Urine Culture >4 [employer] Other Urine Culture <32 [employer] Other Urine Culture >2/38 [employer] Other Vital Signs Date Time Vital Sign Value Performing Clinician Faci lity 11-15-2024 13:35-0400 Body height 162.56 cm Manisha Marc APRN Work Phone: [facility] 11-15-2024 13:35-0400 Body mass index (BMI) [Ratio] 57.4 kg/m2 Manisha Marc APRN Work Phone: [facility] 11-15-2024 13:35-0400 Body temperature 97.4 [degF] Manisha Marc APRN Work Phone: [facility] 11-15-2024 13:35-0400 Body weight 151.95 kg Manisha Marc APRN Work Phone: [facility] 11-15-2024 13:35-0400 Diastolic blood pressure 80 mm[Hg] Manisha Marc APRN Work Phone: [facility] 11-15-2024 13:35-0400 Heart rate 111 /min Manisha Marc APRN Work Phone: [facility] 11-15-2024 13:35-0400 Systolic blood pressure 122 mm[Hg] Manisha Marc APRN Work Phone: [facility] 11-03-2024 15:56-0400 Body height 162.6 cm Marko Celestina DO Work Phone: [facility] 11-03-2024 15:56-0400 Body mass index (BMI) [Ratio] 57.12 kg/m2 Marko Celestina DO Work Phone: [facility] 11-03-2024 15:56-0400 Body weight 150.96 kg Marko Celestina DO Work Phone: [facility] 11-03-2024 15:56-0400 Diastolic blood pressure 70 mm[Hg] Marko Celestina DO Work Phone: [facility] 11-03-2024 15:56-0400 Systolic blood pressure 110 mm[Hg] Marko Celestina DO Work Phone: [facility] 09-27-2024 15:46-0500 Body height 162.56 cm PHYSICIAN NO [facility] 09-27-2024 15:46-0500 Body mass index (BMI) [Ratio] 57.3 kg/m2 PHYSICIAN NO [facility] 09-27-2024 15:46-0500 Body temperature 97.9 [degF] PHYSICIAN NO [facility] 09-27-2024 15:46-0500 Body weight 151.49 kg PHYSICIAN NO [facility] 09-27-2024 15:46-0500 Diastolic blood pressure 83 mm[Hg] PHYSICIAN NO [facility] 09-27-2024 15:46-0500 Heart rate 94 /min PHYSICIAN NO [facility] 09-27-2024 15:46-0500 Respiratory rate 18 /min PHYSICIAN NO [facility] 09-27-2024 15:46-0500 SaO2% (BldA) [Mass fraction] 99 % PHYSICIAN NO [facility] 09-27-2024 15:46-0500 Systolic blood pressure 136 mm[Hg] PHYSICIAN NO [facility] 08-28-2024 13:47-0500 Body height 162.56 cm PHYSICIAN NO [facility] 08-28-2024 13:47-0500 Body mass index (BMI) [Ratio] 57.4 kg/m2 PHYSICIAN NO [facility] 08-28-2024 13:47-0500 Body temperature 97.1 [degF] PHYSICIAN NO [facility] 08-28-2024 13:47-0500 Body weight 151.95 kg PHYSICIAN NO [facility] 08-28-2024 13:47-0500 Diastolic blood pressure 86 mm[Hg] PHYSICIAN NO [facility] 08-28-2024 13:47-0500 Heart rate 105 /min PHYSICIAN NO [facility] 08-28-2024 13:47-0500 Respiratory rate 16 /min PHYSICIAN NO [facility] 08-28-2024 13:47-0500 SaO2% (BldA) [Mass fraction] 97 % PHYSICIAN NO [facility] [place] 08-28-2024 13:47-0500 Systolic blood pressure 136 mm[Hg] PHYSICIAN NO [facility] [place] 08-24-2024 11:00-0500 Body height 162.56 cm Manisha Marc APRN Work Phone: [facility] 08-24-2024 11:00-0500 Body mass index (BMI) [Ratio] 56.5 kg/m2 Manisha Marc CHARHOUSE WORKER Work Phone: [facility] 08-24-2024 11:00-0500 Body temperature 97 [degF] Manisha Marc APRN Work Phone: [facility] 08-24-2024 11:00-0500 Body weight 149.34 kg Manisha Marc APRN Work Phone: [facility] 08-24-2024 11:00-0500 Diastolic blood pressure 82 mm[Hg] Manisha Marc APRN Work Phone: [facility] 08-24-2024 11:00-0500 Heart rate 104 /min Manisha Marc APRN Work Phone: [facility] 08-24-2024 11:00-0500 SaO2% (BldA) [Mass fraction] 95 % Manisha Barclayfani CHARHOUSE WORKER Work Phone: [facility] 08-24-2024 11:00-0500 Systolic blood pressure 134 mm[Hg] Manisha Keanetad CHARHOUSE WORKER Work Phone: [facility] 08-19-2024 11:05-0500 Diastolic blood pressure 72 mm[Hg] Manisha Barclayfani CHARHOUSE WORKER Work Phone: [facility] 08-19-2024 11:05-0500 Heart rate 82 /min Manisha Barclayeliudmarycarmentad CHARHOUSE WORKER Work Phone: [facility] 08-19-2024 11:05-0500 Respiratory rate 16 /min Manisha Barclayfani CHARHOUSE WORKER Work Phone: [facility] 08-19-2024 11:05-0500 SaO2% (BldA) [Mass fraction] 99 % Manisha Barclayfani CHARHOUSE WORKER Work Phone: [facility] 08-19-2024 11:05-0500 Systolic blood pressure 115 mm[Hg] Manisha Keanetad CHARHOUSE WORKER Work Phone: [facility] 08-19-2024 09:01-0500 Body height 162.56 cm Manisha Barclayfani CHARHOUSE WORKER Work Phone: [facility] 08-19-2024 09:01-0500 Body weight 149.68 kg Manisha Barclayeliudmarycarmnetad CHARHOUSE WORKER Work Phone: [facility] 08-16-2024 11:40-0500 Body mass index (BMI) [Ratio] 57.33 kg/m2 Consuelo Rosadooll STACK YIELD ENGINEER Work Phone: [facility] 08-16-2024 11:40-0500 Body weight 151.5 kg Consuelo Ivan STACK YIELD ENGINEER Work Phone: [facility] 08-16-2024 11:40-0500 Diastolic blood pressure 92 mm[Hg] Consuelo Love STACK YIELD ENGINEER Work Phone: [facility] 08-16-2024 11:40-0500 Heart rate 82 /min Consuelo Love STACK YIELD ENGINEER Work Phone: [facility] 08-16-2024 11:40-0500 SaO2% (BldA) [Mass fraction] 93 % Consuelo Love STACK YIELD ENGINEER Work Phone: [facility] 08-16-2024 11:40-0500 Systolic blood pressure 144 mm[Hg] Consuelo Love STACK YIELD ENGINEER Work Phone: [facility] 08-09-2024 15:48-0500 Body height 162.56 cm Manisha Marc APRN Work Phone: [facility] 08-09-2024 15:48-0500 Body mass index (BMI) [Ratio] 58.1 kg/m2 Manisha Marc APRN Work Phone: [facility] 08-09-2024 15:48-0500 Body temperature 98.7 [degF] Manisha Marc APRN Work Phone: [facility] 08-09-2024 15:48-0500 Body weight 153.76 kg Manisha Marc APRN Work Phone: [facility] 08-09-2024 15:48-0500 Diastolic blood pressure 94 mm[Hg] Manisha Marc APRN Work Phone: [facility] 08-09-2024 15:48-0500 Heart rate 135 /min Manisha Marc APRN Work Phone: [facility] 08-09-2024 15:48-0500 SaO2% (BldA) [Mass fraction] 96 % Manisha Marc APRN Work Phone: [facility] 08-09-2024 15:48-0500 Systolic blood pressure 134 mm[Hg] Manisha Marc APRN Work Phone: [facility] 06-23-2024 12:21-0500 Body mass index (BMI) [Ratio] 57.47 kg/m2 Christopher Kenny DO Work Phone: [facility] 06-23-2024 12:21-0500 Body weight 151.86 kg Christopher Kenny DO Work Phone: [facility] 06-23-2024 12:21-0500 Diastolic blood pressure 81 mm[Hg] Christopher Kenny DO Work Phone: [facility] 06-23-2024 12:21-0500 Heart rate 104 /min Christopher Kenny DO Work Phone: [facility] 06-23-2024 12:21-0500 SaO2% (BldA) [Mass fraction] 95 % Christopher Kenny DO Work Phone: [facility] 06-23-2024 12:21-0500 Systolic blood pressure 132 mm[Hg] Christopher Kenny DO Work Phone: [facility] 06-21-2024 11:18-0500 Body height 162.56 cm ROSITA Marc Work Phone: [facility] 06-21-2024 11:18-0500 Body mass index (BMI) [Ratio] 57 kg/m2 ROSITA Marc Work Phone: [facility] 06-21-2024 11:18-0500 Body temperature 97.3 [degF] ROSITA Marc Work Phone: [facility] 06-21-2024 11:18-0500 Body weight 150.81 kg ROSITA Marc Work Phone: [facility] 06-21-2024 11:18-0500 Diastolic blood pressure 88 mm[Hg] ROSITA Marc Work Phone: [facility] 06-21-2024 11:18-0500 Heart rate 135 /min CHARHOUSE WORKER Manisha Charlyacher Work Phone: [facility] 06-21-2024 11:18-0500 SaO2% (BldA) [Mass fraction] 94 % CHARHOUSE WORKER Manisha Denyrbacher Work Phone: [facility] 06-21-2024 11:18-0500 Systolic blood pressure 136 mm[Hg] CHARHOUSE WORKERBryon ThaoManisha Charlyacher Work Phone: [facility] 06-15-2024 09:29-0400 Body height 162.56 cm CHARHOUSE WORKERBryon ColladoManisha Charlyacher Work Phone: [facility] 06-15-2024 09:29-0400 Body mass index (BMI) [Ratio] 57.9 kg/m2 CHARHOUSE WORKER Manisha Charlyacher Work Phone: [facility] 06-15-2024 09:29-0400 Body temperature 97.5 [degF] CHARHOUSE WORKERBryon ThaoManisha Charlyacher Work Phone: [facility] 06-15-2024 09:29-0400 Body weight 152.97 kg CHARHOUSE WORKER Manisha Charlyacher Work Phone: [facility] 06-15-2024 09:29-0400 Diastolic blood pressure 88 mm[Hg] CHARHOUSE WORKERBryon Parksacher Work Phone: [facility] 06-15-2024 09:29-0400 Heart rate 103 /min CHARHOUSE WORKERBryon ColladoManisha Charlyacher Work Phone: [facility] 06-15-2024 09:29-0400 Respiratory rate 18 /min CHARHOUSE WORKERBryon Parksacher Work Phone: [facility] 06-15-2024 09:29-0400 SaO2% (BldA) [Mass fraction] 95 % CHARHOUSE WORKERBryon Parksacher Work Phone: [facility] 06-15-2024 09:29-0400 Systolic blood pressure 128 mm[Hg] CHARHOUSE WORKER Manisha Denyrbacher Work Phone: [facility] 04-21-2024 14:31-0400 Body height 162.56 cm CHARHOUSE WORKER Manisha Denyrbacher Work Phone: [facility] 04-21-2024 14:31-0400 Body mass index (BMI) [Ratio] 55 kg/m2 CHARHOUSE WORKER Manisha Denyrbacher Work Phone: [facility] 04-21-2024 14:31-0400 Body weight 145.6 kg CHARHOUSE WORKER Manisha Denyrbacher Work Phone: [facility] 04-21-2024 14:31-0400 Diastolic blood pressure 88 mm[Hg] CHARHOUSE WORKER Manisha Denyrbacher Work Phone: [facility] 04-21-2024 14:31-0400 Heart rate 111 /min CHARHOUSE WORKER Manisha Charlyacher Work Phone: [facility] 04-21-2024 14:31-0400 SaO2% (BldA) [Mass fraction] 97 % CHARHOUSE WORKER Manisha Charlyacher Work Phone: [facility] 04-21-2024 14:31-0400 Systolic blood pressure 136 mm[Hg] CHARHOUSE WORKERBryon ThaoManisha Denyrbacher Work Phone: [facility] 11-26-2023 08:40-0400 Body height 162.56 cm CHARHOUSE WORKERBryon ColladoManisha Denyrbacher Work Phone: [facility] 11-26-2023 08:40-0400 Body mass index (BMI) [Ratio] 52.9 kg/m2 CHARHOUSE WORKERBryon ColladoManisha Denyrbacher Work Phone: [facility] 11-26-2023 08:40-0400 Body weight 139.79 kg CHARHOUSE WORKERBryon Barclayrbacher Work Phone: [facility] 11-26-2023 08:40-0400 Diastolic blood pressure 79 mm[Hg] CHARHOUSE WORKER Manisha Denyrbacher Work Phone: [facility] 11-26-2023 08:40-0400 Heart rate 97 /min CHARHOUSE WORKER Manisha Denyrbacher Work Phone: [facility] 11-26-2023 08:40-0400 SaO2% (BldA) [Mass fraction] 99 % CHARHOUSE WORKER Manisha Denyrbacher Work Phone: [facility] 11-26-2023 08:40-0400 Systolic blood pressure 131 mm[Hg] CHARHOUSE WORKER Manisha Denyrbacher Work Phone: [facility] 11-03-2023 14:06-0400 Body height 162.56 cm CHARHOUSE WORKER Manisha Denyrbacher Work Phone: [facility] 11-03-2023 14:06-0400 Body mass index (BMI) [Ratio] 53.1 kg/m2 CHARHOUSE WORKER Manisha Denyrbacher Work Phone: [facility] 11-03-2023 14:06-0400 Body weight 140.61 kg CHARHOUSE WORKER Manisha Denyrbacher Work Phone: [facility] 11-03-2023 14:06-0400 Diastolic blood pressure 78 mm[Hg] CHARHOUSE WORKERBryon ThaoManisha Denyrbacher Work Phone: [facility] 11-03-2023 14:06-0400 Heart rate 105 /min CHARHOUSE WORKERBryon ThaoManisha Denyrbacher Work Phone: [facility] 11-03-2023 14:06-0400 SaO2% (BldA) [Mass fraction] 98 % CHARHOUSE WORKERBryon ThaoManisha Charlyacher Work Phone: [facility] 11-03-2023 14:06-0400 Systolic blood pressure 118 mm[Hg] CHARHOUSE WORKERBryon Barclayrbacher Work Phone: [facility] 10-08-2023 10:50-0500 Body height 162.56 cm CHARHOUSE WORKERBryon Keaner Work Phone: [facility] 10-08-2023 10:50-0500 Body weight 139.25 kg CHARHOUSE WORKERBryon Parksacher Work Phone: [facility] 10-01-2023 09:20-0500 Body height 162.56 cm CHARHOUSE WORKERBryon Parksacher Work Phone: [facility] 10-01-2023 09:20-0500 Body mass index (BMI) [Ratio] 53.6 kg/m2 CHARHOUSE WORKERBryon Parksacher Work Phone: [facility] 10-01-2023 09:20-0500 Body weight 141.69 kg CHARHOUSE WORKERBryon Parksacher Work Phone: [facility] 10-01-2023 09:20-0500 Diastolic blood pressure 75 mm[Hg] CHARHOUSE WORKERBryon Parksacher Work Phone: [facility] 10-01-2023 09:20-0500 Heart rate 85 /min CHARHOUSE WORKERBryon Keaner Work Phone: [facility] 10-01-2023 09:20-0500 Respiratory rate 18 /min CHARHOUSE WORKERBryon Parksacher Work Phone: [facility] 10-01-2023 09:20-0500 SaO2% (BldA) [Mass fraction] 99 % CHARHOUSE WORKERBryon Parksacher Work Phone: [facility] 10-01-2023 09:20-0500 Systolic blood pressure 123 mm[Hg] ROSITA Parksacher Work Phone: [facility] 09-03-2023 08:00-0500 Body height 162.56 cm ROSITA Parksacher Work Phone: [facility] 09-03-2023 08:00-0500 Body weight 138.79 kg ROSITA Thaonifer Tari Work Phone: [facility] 09-03-2023 08:00-0500 Diastolic blood pressure 78 mm[Hg] CHARHOUSE WORKER Manisha Charlyacher Work Phone: [facility] 09-03-2023 08:00-0500 Systolic blood pressure 118 mm[Hg] CHARHOUSE WORKER Manisha Charlyacher Work Phone: [facility] 08-19-2023 09:45-0500 Body height 162.56 cm Nely Luis Antoniohari Other [facility] 08-13-2023 14:00-0500 Body height 162.56 cm Manisha Marc Other [facility] 08-13-2023 14:00-0500 Body mass index (BMI) [Ratio] 52.35 kg/m2 Manisha Marc Other [employer] Other 08-13-2023 14:00-0500 Body weight 138.35 kg Manisha Marc Other [employer] Other 08-13-2023 14:00-0500 Body weight 138.34 kg CHARHOUSE WORKER Manisha Tari Work Phone: [facility] 08-13-2023 14:00-0500 Diastolic blood pressure 80 mm[Hg] Manisha Marc Other [facility] 08-13-2023 14:00-0500 SaO2% (BldA) [Mass fraction] 98 % Manisha Marc Other [employer] Other 08-13-2023 14:00-0500 Systolic blood pressure 114 mm[Hg] Manisha Marc Other [facility] 07-15-2023 07:45-0500 Body height 162.56 cm Celio Mullins Other [facility] 07-15-2023 07:45-0500 Body mass index (BMI) [Ratio] 52.98 kg/m2 Celio Mullins Other [employer] Other 07-15-2023 07:45-0500 Body weight 140.03 kg Celio Mullins Other [employer] Other 07-15-2023 07:45-0500 Body weight 140.02 kg ROSITA Marc Work Phone: [facility] 07-15-2023 07:45-0500 Diastolic blood pressure 66 mm[Hg] Celio Mullins Other [facility] 07-15-2023 07:45-0500 Respiratory rate 18 /min Celio Mullins Other [employer] Other 07-15-2023 07:45-0500 SaO2% (BldA) [Mass fraction] 98 % Celio Mullins Other [employer] Other 07-15-2023 07:45-0500 Systolic blood pressure 112 mm[Hg] Celio Mullins Other [facility] 07-07-2023 11:15-0500 Body height 162.56 cm Michelle Ernandez Other [facility] 07-07-2023 11:15-0500 Body mass index (BMI) [Ratio] 52.69 kg/m2 Michelle Ernandez Other [employer] Other 07-07-2023 11:15-0500 Body temperature 98 [degF] Michelle Ernandez Other [employer] Other 07-07-2023 11:15-0500 Body weight 139.26 kg Michelle Oma Other [employer] Other 07-07-2023 11:15-0500 Body weight 139.25 kg ROSITA Manisha Denyaustintad Work Phone: [facility] 07-07-2023 11:15-0500 Respiratory rate 20 /min Michelle Oma Other [employer] Other 07-07-2023 11:15-0500 SaO2% (BldA) [Mass fraction] 98 % Michelle Oma Other [employer] Other 06-29-2023 10:20-0500 Body height 162.56 cm Michelle Oma Other [employer] Other 06-29-2023 10:20-0500 Body mass index (BMI) [Ratio] 53.03 kg/m2 Michelle Oma Other [employer] Other 06-29-2023 10:20-0500 Body temperature 99.7 [degF] Michelle Oma Other [employer] Other 06-29-2023 10:20-0500 Body weight 140.16 kg Michelle Oma Other [employer] Other 06-29-2023 10:20-0500 Respiratory rate 19 /min Michelle Oma Other [employer] Other 06-29-2023 10:20-0500 SaO2% (BldA) [Mass fraction] 98 % Michelle Oma Other [employer] Other 06-11-2023 15:30-0400 Body height 162.56 cm Manisha Keanetad Other [employer] Other 06-11-2023 15:30-0400 Body mass index (BMI) [Ratio] 53.79 kg/m2 Manisha Marc Other [employer] Other 06-11-2023 15:30-0400 Body weight 142.16 kg Manisha Marc Other [employer] Other 06-11-2023 15:30-0400 Diastolic blood pressure 62 mm[Hg] Manisha Marc Other [employer] Other 06-11-2023 15:30-0400 SaO2% (BldA) [Mass fraction] 99 % Manisha Parksgareth Other [employer] Other 06-11-2023 15:30-0400 Systolic blood pressure 126 mm[Hg] Manisha Keanetad Other [employer] Other 05-06-2023 13:40-0400 Body height 162.56 cm Casandra Hassan Other [employer] Other 05-06-2023 13:40-0400 Body mass index (BMI) [Ratio] 53.65 kg/m2 Casandra Hassan Other [employer] Other 05-06-2023 13:40-0400 Body temperature 98.4 [degF] Casandra Hassan Other [employer] Other 05-06-2023 13:40-0400 Body weight 141.8 kg Casandra Hassan Other [employer] Other 05-06-2023 13:40-0400 Diastolic blood pressure 81 mm[Hg] Casandra Tesfayeley Other [employer] Other 05-06-2023 13:40-0400 Respiratory rate 18 /min Casandra Sonya Other [employer] Other 05-06-2023 13:40-0400 SaO2% (BldA) [Mass fraction] 95 % Casandra Tesfayeley Other [employer] Other 05-06-2023 13:40-0400 Systolic blood pressure 134 mm[Hg] Casandra Sonya Other [employer] Other 04-30-2023 08:30-0400 Body height 162.56 cm Manisha Marc Other [employer] Other 04-30-2023 08:30-0400 Body mass index (BMI) [Ratio] 53.86 kg/m2 Manisha Marc Other [employer] Other 04-30-2023 08:30-0400 Body weight 142.34 kg Manisha Marc Other [employer] Other 04-30-2023 08:30-0400 Diastolic blood pressure 82 mm[Hg] Manisha Marc Other [employer] Other 04-30-2023 08:30-0400 SaO2% (BldA) [Mass fraction] 100 % Manisha Marc Other [employer] Other 04-30-2023 08:30-0400 Systolic blood pressure 120 mm[Hg] Manisha Marc Other [employer] Other 04-29-2023 07:00-0400 Body height 162.56 cm Nely Pouring Pounds Other [employer] Other 04-29-2023 07:00-0400 Body mass index (BMI) [Ratio] 54.41 kg/m2 Nely Emcoret Other [employer] Other 04-29-2023 07:00-0400 Body weight 143.79 kg Nely Emcoret Other [employer] Other 03-25-2023 13:45-0400 Body height 162.56 cm [employer] Other [employer] Other 03-25-2023 13:45-0400 Body mass index (BMI) [Ratio] 55.45 kg/m2 [employer] Other [employer] Other 03-25-2023 13:45-0400 Body weight 146.56 kg [employer] Other [employer] Other 03-25-2023 13:45-0400 Diastolic blood pressure 57 mm[Hg] [employer] Other [employer] Other 03-25-2023 13:45-0400 Respiratory rate 18 /min [employer] Other [employer] Other 03-25-2023 13:45-0400 SaO2% (BldA) [Mass fraction] 97 % [employer] Other [employer] Other 03-25-2023 13:45-0400 Systolic blood pressure 106 mm[Hg] Celio Mullins Other [employer] Other 02-11-2023 12:15-0400 Body height 163.83 cm Casandra Hassan Other [employer] Other 02-11-2023 12:15-0400 Body mass index (BMI) [Ratio] 54.88 kg/m2 Casandra Hassan Other [employer] Other 02-11-2023 12:15-0400 Body temperature 98 [degF] Casandra Hassan Other [employer] Other 02-11-2023 12:15-0400 Body weight 147.33 kg Casandra Hassan Other [employer] Other 02-11-2023 12:15-0400 Diastolic blood pressure 85 mm[Hg] Casandra Hassan Other [employer] Other 02-11-2023 12:15-0400 Respiratory rate 18 /min Casandra Hassan Other [employer] Other 02-11-2023 12:15-0400 SaO2% (BldA) [Mass fraction] 98 % Casandra Hassan Other [employer] Other 02-11-2023 12:15-0400 Systolic blood pressure 128 mm[Hg] Casandra Hassan Other [employer] Other 07-13-2022 11:15-0500 Body height 163.83 cm Michelle Ernandez Other [employer] Other 07-13-2022 11:15-0500 Body mass index (BMI) [Ratio] 51.54 kg/m2 Michelle Oma Other [employer] Other 07-13-2022 11:15-0500 Body temperature 96.6 [degF] Michelle Oma Other [employer] Other 07-13-2022 11:15-0500 Body weight 138.35 kg Michelle Oma Other [employer] Other 07-13-2022 11:15-0500 Respiratory rate 18 /min Michelle Oma Other [employer] Other 07-13-2022 11:15-0500 SaO2% (BldA) [Mass fraction] 96 % Michelle Oma Other [employer] Other 07-06-2021 13:00-0500 Body height 163.83 cm Michelle Oma Other [employer] Other 07-06-2021 13:00-0500 Body mass index (BMI) [Ratio] 49 kg/m2 Michelle Oma Other [employer] Other 07-06-2021 13:00-0500 Body temperature 97.5 [degF] Michelle Oma Other [employer] Other 07-06-2021 13:00-0500 Body weight 131.54 kg Michelle Oma Other [employer] Other 07-06-2021 13:00-0500 SaO2% (BldA) [Mass fraction] 96 % Michelle Oma Other [employer] Other 06-17-2021 11:00-0400 Body height 163.83 cm Michelle Ernandez Other [employer] Other 06-17-2021 11:00-0400 Body mass index (BMI) [Ratio] 49.68 kg/m2 Michelle Haynesmond Other [employer] Other 06-17-2021 11:00-0400 Body temperature 98.3 [degF] Michelle Oma Other [employer] Other 06-17-2021 11:00-0400 Body weight 133.36 kg Michelle Ernandez Other [employer] Other 06-17-2021 11:00-0400 Respiratory rate 18 /min Michelle Ernandez Other [employer] Other 06-17-2021 11:00-0400 SaO2% (BldA) [Mass fraction] 96 % Michelle Ernandez Other [employer] Other 05-31-2021 13:50-0400 Body height 163.83 cm Michelle Ernandez Other [employer] Other 05-31-2021 13:50-0400 Body mass index (BMI) [Ratio] 50.36 kg/m2 Michelle Oma Other [employer] Other 05-31-2021 13:50-0400 Body temperature 97.8 [degF] Michelle Oma Other [employer] Other 05-31-2021 13:50-0400 Body weight 135.17 kg Michelle Ernandez Other [facility] [employer] Other 05-31-2021 13:50-0400 Diastolic blood pressure 90 mm[Hg] Michelle Ernandez Other [employer] Other 05-31-2021 13:50-0400 Respiratory rate 18 /min Michelle Ernandez Other [employer] Other 05-31-2021 13:50-0400 SaO2% (BldA) [Mass fraction] 98 % Michelle Ernandez Other [employer] Other 05-31-2021 13:50-0400 Systolic blood pressure 150 mm[Hg] Michelle Ernandez Other [place] [employer] Other Encounters Encounter Date Encounter Type Care Provider Facility Start: 11-15-2024 End: 11-15-2024 ambulatory Manisha Marc APRN Work Phone: [facility] Work Phone: Start: 11-15-2024 End: 11-15-2024 Patient encounter procedure Manisha Marc APRN Work Phone: [facility] Work Phone: Start: 11-10-2024 End: 11-10-2024 ambulatory CONSUELO IVAN Not Available Start: 11-09-2024 Registered Recurring Manisha Marc APRN Work Phone: [facility] Start: 11-09-2024 ambulatory Manisha Su ility:[facility] Start: 11-03-2024 Non-patient / Non-visit Sherry Marc APRN Work Phone: [facility] [employer] Work Phone: Start: 11-03-2024 End: 11-03-2024 Patient encounter procedure Marko Celestina DO Work Phone: [facility] Work Phone: Start: 11-03-2024 End: 11-03-2024 Periodic preventive med est patient 18-39 yrs Marko Chapao DO Work Phone: [facility] Comment on above: Well woman exam with routine gynecological exam; Exposure to STD; Vaginal discharge; Missed menses; PCOS (polycystic ovarian syndrome); Vaginal itching Start: 11-03-2024 End: 11-03-2024 ambulatory MARKO CHAPAO Not Available Start: 10-12-2024 Non-patient / Non-visit Sherry Marc APRN [facility] Phone[facility] Work Phone: Start: 09-27-2024 End: 09-27-2024 ambulatory PHYSICIAN NO [facility] Work Phone: Start: 09-27-2024 End: 09-27-2024 Patient encounter procedure PHYSICIAN NO [facility] Physician [facility] Work Phone: Start: 08-28-2024 End: 08-28-2024 ambulatory PHYSICIAN NO [facility] Work Phone: Start: 08-28-2024 End: 08-28-2024 Patient encounter procedure PHYSICIAN NO [facility] Work Phone: Start: 08-27-2024 Registered Recurring PHYSICIAN NO [facility] Start: 08-24-2024 Registered Recurring PHYSICIAN NO [facility] Start: 08-24-2024 Immune system finding Manisha Marc APRN Work Phone: [facility] Start: 08-24-2024 Patient encounter status Manisha Marc APRN Work Phone: [facility] Start: 08-24-2024 End: 08-24-2024 ambulatory Manisha Parksgareth CHARHOUSE WORKER Work Phone: [facility] Work Phone: Start: 08-24-2024 End: 08-24-2024 Encounter for antibody response examination Manisha Marc CHARHOUSE WORKER Work Phone: [facility] Start: 08-24-2024 End: 08-24-2024 Encounter for general adult medical examination without abnormal findings Manisha Barclayfani CHARHOUSE WORKER Work Phone: [facility] Start: 08-24-2024 End: 08-24-2024 Patient encounter procedure Manisha Barclayfani BECKER Work Phone: [facility] Physician [facility] Work Phone: Start: 08-19-2024 Non-patient / Non-visit Sherry willard Tari BECKER Work Phone: [facility] Work Phone: Start: 08-19-2024 End: 08-19-2024 Admission to same day surgery center Manisha Barclayfani BECKER Work Phone: [facility] Work Phone: Start: 08-19-2024 End: 08-19-2024 ambulatory Manisha Barclayfani BECKER Work Phone: [facility] Work Phone: Start: 08-16-2024 End: 08-16-2024 Bamboo flowsheet Consuelo Love STACK YIELD ENGINEER Work Phone: [facility] [address] Start: 08-16-2024 End: 08-16-2024 Bamboo flowsheet Consuelo Love STACK YIELD ENGINEER Work Phone: [facility] [address] Start: 08-16-2024 End: 08-16-2024 ambulatory CONSUELO LOVE Not Available Start: 08-16-2024 End: 08-16-2024 Office outpatient visit 15 minutes Consuelo Love NP Work Phone: [facility] [address] Comment on above: Cognitive dysfunctio n (Primary Dx); ALEXX (obstructive sleep apnea); Attention deficit hyperactivity disorder (ADHD), unspecified ADHD type (CMS/HCC); Severe anxiety; Severe episode of recurrent major depressive disorder, without psychotic features (HCC) (CMS/HCC); Bipolar affective disorder, remission status unspecified (CMS/HCC); Episodic migraine (CMS/HCC) Start: 08-09-2024 End: 08-09-2024 ambulatory Manisha Marc Facility:[facility] Start: 08-09-2024 End: 08-09-2024 Departed Referred Manisha Marc APRN Work Phone: [facility] [place] Work Phone: Start: 08-09-2024 End: 08-09-2024 Patient encounter procedure Manisha Marc APRN Work Phone: [facility]ician [facility] Work Phone: Start: 08-03-2024 Registered Recurring Manisha Marc APRN Work Phone: [facility] Start: 07-12-2024 End: 07-12-2024 Patient encounter procedure Mario Mcknight PhD Work Phone: [facility] Comment on above: ADHD (attention defi cit hyperactivity disorder), inattentive type (CMS/HCC) (Primary Dx); ALEXX (obstructive sleep apnea); Bipolar affective disorder, remission status unspecified (CMS/HCC); Other chronic pain; Severe anxiety; Severe episode of recurrent major depressive disorder, without psychotic features (HCC) (CMS/HCC) Start: 07-12-2024 End: 07-12-2024 ambulatory MARKO OSCAR Not Available Start: 06-29-2024 Non-patient / Non-visit Sherry Marc APRN Work Phone: [facility] Work Phone: Start: 06-28-2024 End: 06-28-2024 Bamboo flowsyarely Mcknight PhD Work Phone: [facility] Start: 06-28-2024 End: 06-28-2024 Bamboo flowsheet Mario Mcknight PhD Work Phone: [facility] Start: 06-28-2024 End: 06-28-2024 Patient encounter procedure Mario Mcknight PhD Work Phone: [facility] Comment on above: ADHD (attention defi cit hyperactivity disorder), inattentive type (CMS/HCC) (Primary Dx); Cognitive impairment; ALEXX (obstructive sleep apnea); Bipolar affective disorder, remission status unspecified (CMS/HCC); Other chronic pain Start: 06-28-2024 End: 06-28-2024 ambulatory MARIO MCKNIGHT Not Available Start: 06-25-2024 End: 06-25-2024 Departed Referred Manisha Marc APRN Work Phone: [facility] [place] Work Phone: Start: 06-25-2024 End: 06-25-2024 ambulatory Manisha Marc APRN Work Phone: [facility] Work Phone: Start: 06-25-2024 End: 06-25-2024 Patient encounter procedure Manisha Marc APRN Work Phone: [facility] Work Phone: Start: 06-23-2024 ambulatory Facility:[facility] [place] Start: 06-23-2024 End: 06-23-2024 Bamboo flowsheet Gwen Cox DO [facility] Start: 06-23-2024 End: 06-23-2024 Bamboo flowsyarely Cox DO Work Phone: [facility] Start: 06-23-2024 End: 06-23-2024 Office outpatient new 45 minutes Gwen Cox DO Work Phone: [facility] [address] Comment on above: Cognitive impairment (Primary Dx); Anxiety Start: 06-23-2024 End: 06-23-2024 ambulatory GWEN COX Not Available Start: 06-21-2024 End: 06-21-2024 ambulatory ROSITA Marc Work Phone: [facility] Work Phone: Start: 06-21-2024 End: 06-21-2024 Patient encounter procedure ROSITA Marc Work Phone: [facility] Work Phone: Start: 06-18-2024 Non-patient / Non-visit ROSITA Marc Work Phone: [facility] Work Phone: Start: 06-15-2024 End: 06-15-2024 Departed Referred ROSITA Marc Work Phone: [facility] [place] Work Phone: Start: 06-15-2024 End: 06-15-2024 ambulatory ROSITA Marc Work Phone: [facility] Work Phone: Start: 06-15-2024 End: 06-15-2024 Patient encounter procedure ROSITA Marc Work Phone: [facility] Physician [facility] Work Phone: Start: 06-07-2024 Non-patient / Non-visit ROSITA Marc Work Phone: [facility] Work Phone: Start: 05-13-2024 Registered Recurring ROSITA Marc Work Phone: [facility] Start: 04-21-2024 End: 04-21-2024 ambulatory ROSITA Manishaamita Marc Work Phone: [facility] Work Phone: Start: 04-21-2024 End: 04-21-2024 Patient encounter procedure CHARHOUSE WORKERBryon ThaoManisha Diyar Work Phone: [facility] Work Phone: Start: 04-15-2024 Non-patient / Non-visit ROSITA Toshia kolbyamita Tari Work Phone: [facility] Work Phone: Start: 04-12-2024 Non-patient / Non-visit ROSITA Keaner Work Phone: [facility] Work Phone: Start: 04-03-2024 Registered Recurring CHARHOUSE WORKERBryon Marc Work Phone: [facility] Start: 03-16-2024 End: 03-16-2024 ambulatory MELA ANDERSON Not Available Start: 01-19-2024 End: 01-19-2024 ambulatory Bud Combs MD Facility:[facility] Start: 01-01-2024 Registered Recurring CHARHOUSE WORKERBryon Marc Work Phone: [facility] Start: 11-26-2023 End: 11-26-2023 ambulatory ROSITA Marc Work Phone: [facility] Work Phone: Start: 11-26-2023 End: 11-26-2023 Patient encounter procedure ROSITA Colladofer Tari Work Phone: [facility] Physician [facility] Work Phone: Start: 11-03-2023 End: 11-03-2023 ambulatory ROSITA Marc Work Phone: [facility] Work Phone: Start: 11-03-2023 End: 11-03-2023 Patient encounter procedure ROSITA Thaonifer Tari Work Phone: [facility] Work Phone: Start: 10-30-2023 Non-patient / Non-visit CHARHOUSE WORKERBryon Marc Work Phone: [facility] Work Phone: Start: 10-08-2023 End: 10-08-2023 ambulatory ROSITA Marc Work Phone: [facility] Work Phone: Start: 10-08-2023 End: 10-08-2023 Patient encounter procedure ROSITA Marc Work Phone: [facility] Work Phone: Start: 10-06-2023 Non-patient / Non-visit ROSITA Marc Work Phone: [facility] Work Phone: Start: 10-06-2023 End: 10-06-2023 ambulatory Bud Combs MD Facility:[facility] Start: 10-01-2023 End: 10-01-2023 ambulatory ROSITA Marc Work Phone: [facility] Work Phone: Start: 10-01-2023 End: 10-01-2023 Patient encounter procedure ROSITA Marc Work Phone: [facility] Work Phone: Start: 09-10-2023 Registered Recurring ROSITA Marc Work Phone: [facility] Start: 09-08-2023 End: 09-08-2023 ambulatory Bud Combs MD Facility:[facility] Start: 09-03-2023 End: 09-03-2023 Patient encounter procedure ROSITA Marc Work Phone: [facility]- Start: 08-19-2023 End: 08-19-2023 ambulatory Nely Cruz Other [employer] [facility] [employer] Other Start: 08-19-2023 IBT FOR OBESITY GROU P 2-10 30M Nely Cruz [facility] Start: 08-19-2023 Registered Recurring ROSITA Marc Work Phone: [facility] Work Phone: Start: 08-19-2023 End: 08-19-2023 Patient encounter procedure ROSITA Marc Work Phone: [facility] Work Phone: Start: 08-14-2023 Registered Recurring ROSITA Marc Work Phone: [facility] Start: 08-13-2023 End: 08-13-2023 ambulatory Manisha Marc Other [employer] [facility] [employer] Other Start: 08-13-2023 Office outpatient vi sit 15 minutes Manisha Marc [facility] Start: 08-13-2023 End: 08-13-2023 Patient encounter procedure ROSITA Marc Work Phone: [facility] Work Phone: Start: 07-21-2023 End: 07-21-2023 ambulatory Bud Combs MD Facility:[facility] Start: 07-19-2023 End: 07-19-2023 ambulatory CHARHOUSE WORKERBryon Marc Work Phone: [facility] Work Phone: Start: 07-19-2023 End: 07-19-2023 Patient encounter procedure ROSITA Marc Work Phone: [facility] Start: 07-15-2023 End: 07-15-2023 ambulatory Celio Mullins Other [employer] Other Start: 07-15-2023 Follow-up encounter Celio Mullins [facility] Start: 07-15-2023 End: 07-15-2023 Patient encounter procedure ROSITA Marc Work Phone: [facility] Work Phone: Start: 07-07-2023 End: 07-07-2023 ambulatory Michelle Ernandez Other [employer] Other Start: 07-07-2023 Office outpatient vi sit 15 minutes Michellenawaf Ernandez [facility] Start: 07-07-2023 End: 07-07-2023 Patient encounter procedure ROSITA Marc Work Phone: [facility] Work Phone: Start: 07-03-2023 Registered Recurring ROSITA Marc Work Phone: [facility] Start: 07-03-2023 End: 07-03-2023 ambulatory CHARHOUSE WORKERBryon Marc Work Phone: [facility] Work Phone: Start: 07-03-2023 End: 07-03-2023 Patient encounter procedure ROSITA Marc Work Phone: [facility] [place] Work Phone: Start: 07-01-2023 End: 07-01-2023 Patient encounter procedure CHARHOUSE WORKER Manisha Marc Work Phone: [facility] [place] Work Phone: Start: 06-29-2023 End: 06-29-2023 ambulatory Michelle Oma Other [employer] Other Start: 06-29-2023 Office outpatient vi sit 15 minutes Michelle Oma [facility] Start: 06-17-2023 Registered Recurring CHARHOUSE WORKER Layla Marc Work Phone: [facility] Work Phone: Start: 06-11-2023 End: 06-11-2023 ambulatory Manisha Marc Other [employer] Other Start: 06-11-2023 Office outpatient vi sit 25 minutes Manisha Marc [facility] Start: 05-06-2023 End: 05-06-2023 ambulatory Casandra Hassan Other [employer] Other Start: 05-06-2023 Office outpatient vi sit 10 minutes Casandra Hassan [facility] Start: 05-01-2023 End: 05-01-2023 ambulatory Manisha Marc Other [employer] Other Start: 05-01-2023 Telephone encounter Manisha Rico her [facility] Start: 04-30-2023 End: 04-30-2023 ambulatory Manisha Marc Other [employer] Other Start: 04-30-2023 Encounter for genera l adult medical examination without abnormal findings Manisha Marc [facility] Start: 04-30-2023 Periodic preventive med est patient 18-39 yrs Manisha Marc [facility] Start: 04-29-2023 ([facility] WMNI) WMN Init ial Provider Nely Luis Antoniohari [facility] Start: 04-29-2023 End: 04-29-2023 ambulatory Nely Cruz Other [employer] Other Start: 03-25-2023 End: 03-25-2023 ambulatory Celio Mullins Other [employer] Other Start: 03-25-2023 Nutrition therapy Celio Mullins [facility] Start: 03-25-2023 Telephone encounter Celio Owens [facility] Start: 03-14-2023 End: 03-14-2023 ambulatory Nelybryon Cruz Other [employer] Other Start: 03-14-2023 Telephone encounter Nely Cruz [facility] Start: 02-11-2023 End: 02-11-2023 ambulatory Casandra Hassan Other [employer] Other Start: 02-11-2023 Office outpatient vi sit 15 minutes Casandra Hassan [facility] Start: 12-31-2022 End: 01-01-[address] MARKO OSCAR . Facility:[facility] Start: 11-26-2022 End: 11-27-[address] MARKO OSCAR . Facility:[facility] Start: 11-08-2022 End: 11-09-[address] THADDEUS ROD Facility:[facility] Start: 10-28-2022 End: 10-28-[address] MARKO OSCAR . Facility:[facility] Start: 07-13-2022 End: 07-13-2022 ambulatory Michelle Ernandez Other [employer] Other Start: 07-13-2022 Office outpatient vi sit 15 minutes Michelle Ernandez [facility] Start: 03-07-2022 End: 03-08-[address] THADDEUS ROD Facility:[facility] Start: 01-25-2022 Encounter for genera l adult medical examination without abnormal findings DR THADDEUS ROD [facility] Start: 01-21-2022 End: 01-22-[address] THADDEUS ROD Facility:[facility] Start: 01-21-2022 End: 01-22-2022 Encounter for general adult medical examination without abnormal findings DR THADDEUS ROD Facility:[facility] Start: 07-06-2021 End: 07-06-2021 ambulatory Michellenawaf Ernandez Other [place] [employer] Other Start: 07-06-2021 Office outpatient vi sit 15 minutes Michelle Oma [facility] Start: 06-17-2021 Office outpatient vi sit 15 minutes Michelle Oma [facility] Start: 05-31-2021 Office outpatient vi sit 25 minutes Michelle Oma [facility] Start: 08-27-2018 End: 08-27-2018 ambulatory BRENT KINNEY Facility:[facility] Procedures Date Procedure Procedure Detail Performing Clinician Start: 11-03-2024 Urine test visual color cmprsn meths Marko Celestina DO Work Phone: Start: 08-19-2024 Esophagogastroduodenoscopy Manisha chamberlain APRN Work Phone: Start: 08-09-2024 Urine culture Manisha Marc APRN Work Phone: Start: 06-25-2024 Urine culture Manisha Marc APRN Work Phone: Start: 06-15-2024 Bacteria identified in Urine by Culture CHARHOUSE WORKER Manisha Marc Work Phone: Start: 06-15-2024 Urine culture Manisha Marc APRN Work Phone: Start: 11-03-2023 Microscopic observation [Identifier] in Cervix by Cyto stain Gwen Cox DO Work Phone: Start: 10-08-2023 MRI of head CHARHOUSE WORKERBryon Marc Work Phone: Start: 05-31-2021 Piperacillin/tazobactam Michelle Ernandez Other Start: 08-27-2018 extraction, erupted tooth or exposed root (elevation and/or forceps removal) BRENT MENDOZACONIS Start: 08-27-2018 removal of impacted tooth - soft tissue BRENT MENDOZACONIS Start: 08-27-2018 Urine test visual color cmprsn meths BRENT KINNEY Plan of Treatment Date Care Activity Detail Author Start: 10-29-2027 Screening for malign ant neoplasm of cervix [facility] Start: 11-02-2026 Screening for malign ant neoplasm of cervix Pap Smear [facility] Start: 11-09-2025 End: 11-09-2025 Patient encounter procedure 11/09/2025 3:00 PM EDT Office Visit [facility] [address] [place] [id number] Marko Oscar, DO [address], [place] [id number] [facility] Start: 11-30-2024 End: 11-30-2024 Professional / ancillary services management 11/30/2024 1:00 PM EDT Ancillary Procedure [facility] [address] [place] [phone] [facility] Start: 11-09-2024 End: 11-09-2024 Patient encounter procedure [address] Start: 11-03-2024 End: 11-03-2025 US Pelvis US Pelvis w/ TV Imaging Routine PCOS (polycystic ovarian syndrome) Expected: 11/03/2024, Expires: 11/03/2025 [facility] Comment on above: Expected: 11/03/2024 , Expires: 11/03/2025 Start: 11-02-2024 End: 11-02-2024 Patient encounter procedure 11/02/2024 11:00 AM EDT Office Visit [facility] [address] [place] [phone] Marko Oscar, DO [address], [place] [id number] [facility] Start: 08-19-2024 [facility] Start: 08-16-2024 End: 08-16-2024 Patient encounter procedure 08/16/2024 11:20 AM EST [facility] [address] [place] [address], [place] [phone] Consuelo Love, NEVIN [address] [place] [phone] [facility] [address] Start: 07-12-2024 End: 07-12-2024 Patient encounter procedure 07/12/2024 8:00 AM EST [facility] [address] [place] [address] [facility] Start: 06-28-2024 End: 06-28-2024 Patient encounter procedure [facility] Comment on above: Cognitive impairment Start: 06-25-2024 Bacteria identified in Urine by Culture Urine Culture [facility] Start: 06-25-2024 Urine culture [facility] Start: 06-23-2024 End: 06-23-2024 Patient encounter procedure 06/23/2024 12:30 PM EST Office Visit [facility] [address] [phone] Gwen Cox DO [address] [place] [address] Arrived [facility] Comment on above: Arrived Start: 06-21-2024 Patient referral [facility] Work Phone: Start: 06-15-2024 Bacteria identified in Urine by Culture Urine Culture [facility] Start: 06-15-2024 [facility] Start: 06-15-2024 Urine culture [facility] Start: 04-18-2024 Influenza vaccination Influenza Vacc ine (#1) [facility] CHLAMYDIA TRACHOMATI S (GENITO/STI) CHLAMYDIA TRACHOMATIS (GENITO/STI) Lab Routine Exposure to STD Ordered: 11/03/2024 [facility] Comment on above: Ordered: 11/03/2024 Chlamydia trachomati s DNA [Presence] in Unspecified specimen by SURI with probe detection [facility] Comprehensive metabo lic 2000 panel - Serum or Plasma [facility] CT Neck W [facility] Cervical or vaginal smear or scraping study Pap Smear Pathology and Cytology Routine Well woman exam with routine gynecological exam Ordered: 11/03/2024 [facility] Work Phone: Comment on above: Ordered: 11/03/2024 Holter monitor study [facility] Human papilloma viru s DNA [Presence] in Unspecified specimen by Probe with amplification HPV DNA probe, amplified Microbiology Routine Well woman exam with routine gynecological exam Ordered: 11/03/2024 [facility] Comment on above: Ordered: 11/03/2024 MR Unspecified body region [facility] Neisseria gonorrhoea e DNA [Presence] in Unspecified specimen by SURI with probe detection [facility] Neisseria gonorrhoea e DNA [Presence] in Unspecified specimen by SURI with probe detection Neisseria gonorrhea DNA probe, direct Lab Routine Exposure to STD Ordered: 11/03/2024 [facility] Comment on above: Ordered: 11/03/2024 Patient Education [facility] Work Phone: Patient referral [facility] Work Phone: SURESWAB(R) ADVANCED VAGINITIS PLUS, TMA SURESWAB(R) ADVANCED VAGINITIS PLUS, TMA Pathology and Cytology Routine Vaginal discharge Ordered: 11/03/2024 [facility] Comment on above: Ordered: 11/03/2024 Trichomonas vaginali s DNA [Presence] in Unspecified specimen by SURI with probe detection [facility] Urine culture [facility] Immunizations Immunization Date Immunization Notes Care Provider Lillie rogers 03-03-2021 Do not use COVID-19 Pfizer 2 dose Manisha Marc Other [facility] 02-10-2021 Do not use COVID-19 Pfizer 2 dose Manisha Marc Other [facility] 08-03-2018 Toradol per 15 mg Michelle Sofia ond Other [employer] Other Payers Date Payer Category Payer Self-pay [id number] 2022 Private Health Insurance 1991 Unknown [id number] [id number]. 732 1991 Unknown [id number] 2.16.840.1.565170.3.579.2. 593 1991 Unknown [id number] 2.16.840.1.230262.3.579.2. 593 1991 Unknown [id number] 2.16.840.1.709050.3.579.2. 593 1991 Unknown [id number] 2.16.840.1.147037.3.579.2. 593 1991 Unknown [id number] 2.16.840.1.438989.3.579.2. 593 1991 Unknown [id number] 2.16.840.1.536096.3.579.2. 593 1991 Unknown [id number] 2.16.840.1.060755.3.579.2. 196 1991 Unknown [id number] 2.16.840.1.927143.3.579.2. 196 1991 Unknown [id number] 2.16.840.1.570974.3.579.2. 196 1991 Unknown [id number] 2.16.840.1.885367.3.579.2. 196 1991 Unknown [id number] 2.16.840.1.343299.3.579.2. 1259 1991 Unknown [id number] 2.16.840.1.440161.3.579.2. 1259 1991 Unknown [id number] 2.16.840.1.069363.3.579.2. 1259 1991 Unknown [id number] 2.16.840.1.465881.3.579.2. 1259 1991 Unknown [id number] 2.16.840.1.171509.3.579.2. 9 1991 Unknown [id number] 2.16.840.1.629561.3.579.2. 1259 1991 Unknown [id number] 2.16.840.1.791836.3.579.2. 1259 1958 Medicaid [id number] 1959 Unknown [id number] Unknown [facility] [id number] Unknown [id number] 2.16.840.1.360491.3.579.2. 531 Unknown [id number] 2.16.840.1.040239.3.579.2. 531 Unknown [id number] 2.16.840.1.759539.3.579.2. 531 Unknown [id number] 2.16.840.1.253176.3.579.2. 531 Unknown [id number] 2.16.840.1.244761.3.579.2. 531 Social History Date Type Detail Facility Unknown if ever smoked [employer] Other Start: 03-11-2023 End: 03-16-2024 Sex Assigned At [employer] Other Start: 12-07-2021 End: 08-19-2024 Tobacco smoking status NHIS Never smoked tobacco (finding) [facility] Start: 1990 Sex Assigned At Female F [facility] Start: 05-31-2024 End: 11-03-2024 Alcoholic beverage intake Not Asked [facility] Start: 07-24-2023 End: 03-16-2024 History of Social function [facility] Start: 03-11-2023 Gender identity Identifies as female gender (finding) [facility] Start: 06-25-2024 End: 11-15-2024 Sex Female (finding) [facility] Goals Date Patient Goal Desired Activity /State Clinical Notes 05-31-2021 to 11-03-2024 [place], [facility] - 11/03/2024 3:20 PM EDT Note Date & Type Note Facility 11-03-2024 History of Presen t illness Narrative Reason for Appointment: Patient ID: Ashly Mehta is a 34 y.o. female who presents for Well Women Visit and STI Screening Patient presents today for Annual Exam. MEDICATIONS Current Outpatient Medications Medication Instructions albuterol HFA 90 mcg/act inhaler 2 puffs, Every 6 hours PRN baclofen (LIORESAL) 10 mg, 3 times daily DULoxetine (CYMBALTA) 90 mg, Daily RT gabapentin (Neurontin) 300 MG capsule Take by mouth. lamoTRIgine (LaMICtal) 25 MG tablet take 1 tablet by mouth IN THE MORNING and 2 tablet by mouth IN TH... (REFER TO PRESCRIPTION NOTES). lisinopril 10 mg, Daily Melatonin 2.5 MG chewable tablet Chew meloxicam (MOBIC) 15 mg, Daily metFORMIN XR (GLUCOPHAGE-XR) 1,000 mg, Oral, Daily with evening meal, Do not crush, chew, or split. methenamine hippurate (HIPREX) 1 g, 2 times daily Multiple Vitamins-Minerals (MULTI COMPLETE PO) Multi Complete pantoprazole (PROTONIX) 40 mg, Daily valACYclovir (VALTREX) 500 mg, Daily ALLERGIES Allergies Allergen Reactions Amoxicillin Hives Other Reaction(s): Rash Cefaclor Hives Cephalosporins Other Reaction(s): Rash Erythromycin Base Other Reaction(s): Hives Erythromycin Hives and Rash PROBLEMS Active Ambulatory Problems Diagnosis Date Noted Abnormal uterine bleeding 02/11/2023 Abnormal weight gain 02/11/2023 Disorder of endocrine system 02/11/2023 Essential hypertension (CMS/HCC) 02/11/2023 Herpes simplex of female genitalia 02/11/2023 Menorrhagia 02/11/2023 Morbid obesity (CMS/HCC) 02/11/2023 Pain in female genitalia on intercourse 02/11/2023 Polycystic ovaries 02/11/2023 Secondary amenorrhea 02/11/2023 Anemia 02/11/2023 Hematuria, microscopic 06/03/2018 Recurrent urinary tract infection 06/03/2018 Neuropathy 05/31/2024 Carpal tunnel syndrome of right wrist 05/31/2024 Paresthesia of skin 05/31/2024 Seizure disorder (CMS/HCC) 05/31/2024 Bipolar affective disorder (CMS/HCC) 05/31/2024 Resolved Ambulatory Problems Diagnosis Date Noted No Resolved Ambulatory Problems Past Medical History: Diagnosis Date Abnormal Pap smear of cervix Abnormal uterine bleeding (AUB) ADHD (attention deficit hyperactivity disorder) (CMS/HCC) Anxiety Asthma (CMS/HCC) Benign essential HTN (CMS/HCC) Bipolar 2 disorder (CMS/HCC) Chronic cystitis Coitus painful for female Depression (CMS/HCC) Dysthymia (CMS/HCC) Genital herpes in women GERD (gastroesophageal reflux disease) Hormone imbalance Hypertension (CMS/HCC) Hypertension (CMS/HCC) Infertility, female Lumbar spondylolysis Memory changes Morbid obesity with BMI of 50.0-59.9, adult (CMS/HCC) Pain of ovary PCOS (polycystic ovarian syndrome) Pre-diabetes Right ovarian cyst Seasonal affective disorder (CMS/HCC) Sleep apnea Tachycardia HISTORY PAST MEDICAL HISTORY SOCIAL HISTORY Past Medical History: Diagnosis Date Abnormal Pap smear of cervix Abnormal uterine bleeding (AUB) Abnormal weight gain ADHD (attention deficit hyperactivity disorder) (CMS/HCC) Anemia Anxiety Asthma (CMS/HCC) Benign essential HTN (CMS/HCC) Bipolar 2 disorder (CMS/HCC) Chronic cystitis Coitus painful for female Depression (CMS/HCC) Dysthymia (CMS/HCC) Genital herpes in women GERD (gastroesophageal reflux disease) Hormone imbalance Hypertension (CMS/HCC) Hypertension (CMS/HCC) Infertility, female Lumbar spondylolysis Memory changes Menorrhagia Morbid obesity with BMI of 50.0-59.9, adult (CMS/HCC) Pain of ovary PCOS (polycystic ovarian syndrome) Pre-diabetes Right ovarian cyst Seasonal affective disorder (CMS/HCC) Secondary amenorrhea Seizure disorder (CMS/HCC) Sleep apnea Tachycardia Social History Tobacco Use Smoking status: Never Smokeless tobacco: Not on file Substance Use Topics Alcohol use: Not on file Drug use: Never FAMILY HISTORY Family History Problem Relation Name Age of Onset Hypertension Mother Mental illness Mother Cancer Mother Atrial fibrillation Mother Migraines Mother Stroke Mother COPD Mother Heart disease Mother Mental illness Sister Asthma Sister Depression Sister Migraines Sister SURGICAL HISTORY Past Surgical History: Procedure Laterality Date BACK SURGERY L4-L5 ablation CHOLECYSTECTOMY COLONOSCOPY 2024 COLPOSCOPY DILATION AND CURETTAGE OF UTERUS 01/31/2023 GALLBLADDER SURGERY LAPAROTOMY OOPHERECTOMY WISDOM TOOTH EXTRACTION REVIEW OF SYSTEMS Review of Systems: Review of Systems Constitutional: Negative. HENT: Negative. Eyes: Negative. Respiratory: Negative. Cardiovascular: Negative. Gastrointestinal: Negative. Genitourinary: Negative. Musculoskeletal: Negative. Skin: Negative. Neurological: Negative. All other systems reviewed and are negative. Hematological: Negative. Endocrine: Negative. Allergic/Immunologic: Negative. OBJECTIVE Objective: Physical Exam Constitutional: Appearance: Normal appearance. She is well-developed. Genitourinary: Vulva normal. Breasts: Breasts are soft. Right: Normal. Left: Normal. Cardiovascular: Rate and Rhythm: Normal rate and regular rhythm. Pulmonary: Effort: Pulmonary effort is normal. Breath sounds: Normal breath sounds. Abdominal: General: Bowel sounds are normal. There is no distension. Palpations: Abdomen is soft. Tenderness: There is no abdominal tenderness. There is no guarding or rebound. Musculoskeletal: General: No swelling. Normal range of motion. Right lower leg: No edema. Left lower leg: No edema. Neurological: Mental Status: She is alert and oriented to person, place, and time. Skin: General: Skin is warm and dry. Psychiatric: Mood and Affect: Mood normal. Behavior: Behavior normal. Vitals and nursing note reviewed. Exam conducted with a demand equipment repairer present. Vitals: Estimated body mass index is 57.12 kg/m as calculated from the following: Height as of this encounter: 5' 4 . Weight as of this encounter: 332 lb 12.8 oz. BP: 110/70 No LMP recorded. ASSESSMENT & PLAN ICD-10-CM 1. Well woman exam with routine gynecological exam Z01.419 Pap Smear HPV DNA probe, amplified 2. Exposure to STD Z20.2 CHLAMYDIA TRACHOMATIS (GENITO/STI) Neisseria gonorrhea DNA probe, direct 3. Vaginal discharge N89.8 SURESWAB(R) ADVANCED VAGINITIS PLUS, TMA 4. Missed menses N92.6 POCT , urine manually resulted Annual Exam: Patient presents today for an annual exam. Patient states she is doing well and has no complaints. Pap was obtained without difficulty. Cultures obtained. Pt states she has labial itching. Rx for lotrisone cream faxed to pharmacy. Orders Placed This Encounter Procedures HPV DNA probe, amplified CHLAMYDIA TRACHOMATIS (GENITO/STI) Neisseria gonorrhea DNA probe, direct POCT , urine manually resulted Follow Up: Patient is to return in one year for annual unless needed otherwise. Documented by Cici Lake LPN on behalf of: Marko Oscar DO documented in this encounter [facility] 08-24-2024 Evaluation note Diagnosis Onset Date Resolution Encounter for antibody response examination acute August 10:57am History of seizures acute Augua ry 2024 10:57am Hypertension acute August 24, 2024 10:57am Iron deficiency anemia acute Ja nuary 2024 10:57am PCOS (polycystic ovarian syndrome) acute August 24 10:57am Severe obesity (BMI >= 40) acute August 24 10:57am Wellness examination acute Al tatianna2024 10:57am Cellulitis acute August 28, 2024 1:44pm Viral illness acute September 272024 3:23pm Swelling, mass, or lump in head and neck acute November 15 1:32pm [facility] Work Phone: 1(476) 771-534101-02-2025 [place] [address] Colonoscopy Procedure Report Signed Patient: Ashly Mehta MR#: [id number] : 1990 Acct:[id number] Age/Sex: 33 / F Adm Date: 5 Loc: Room: Type: [facility] Attending Dr: Hilaria Burgos DO Copies to: DO Manisha Chakraborty APRN, TERESITA~ Colonoscopy Date/Provider 08/19/2024 Hilaria Burgos DO Narrative Procedure: Colonoscopy Indication: Iron deficiency anemia Pre-operative diagnosis: Iron deficiency anemia Post-operative diagnosis: fair bowel preparation, internal hemorrhoids, otherwise normal Sedation: propofol per anesthesia dept O2 oximetry, hemodynamic monitoring was performed pre, during, and post procedure. Patient was identified, H&P completed, patient was given full explanation of the procedure as well as associatedrisks and written consent wasobtained prior to procedure. Patient expressed complete understanding of the procedure as well as alternatives to the procedure and to anesthesia and agreed to proceed with the procedure as indicated. Patient was immediately reassessed prior to IV sedation. Under IV sedation, patient was placed in the left lateral decubitus position. Digital rectal exam was performed and normal. Colonoscope was inserted and passed proximally to the cecum, which was identified by the ileocecal valve, appendiceal orifice and cecal floor. The terminal ileum was intubatedand examined. Colonoscope was slowly withdrawn with the findings as below. [place] bowel prep score was Fair. Findings: The overall bowel preparation quality was fair. Terminal ileum: Normal Cecum: Normal. Ascending colon: Normal. Hepatic flexure: Normal. Transverse colon: Normal. Splenic flexure: Normal. Descending colon: Normal. Sigmoid colon: Normal. Rectum: Normal. Retroflexed views: Rectum did show small internal hemorrhoids. Biopsy taken: None Complications: None EBL: None Recommendations: -Repeat colonoscopy at 46 yrs -Fiber rich diet -Follow up in the office as needed -Follow up with PCP Following a period of recovery, patient was seen and given full explanation of the procedure. Patient tolerated the procedure well and will be discharged in satisfactory, stable condition. Hilaria Burgos DO Documented By: Hilaria Burgos DO 08/19/24 0859 Signed By: 08/19/[address] [place], [place] 1576701-02-2025 [place] [address] EGD Procedure Note Signed Patient: Ashly Mehta MR#: [id number] : 1990 Acct:[id number] Age/Sex: 33 / F Adm Date: 5 Loc: Room: Type: [facility] Attending Dr: Hilaria Burgos DO Copies to: DO Manisha Chakraborty APRN, TERESITA~ Esophagogastroduodenoscopy Date/Provider Date: 08/19/2024 Hilaria Burgos DO Narrative Narrative: Procedure: EGD with biopsy Indication: Iron deficiency anemia Pre-operative diagnosis: Iron deficiency anemia Post-operative diagnosis: moderate gastritis, LA grade A esophagitis at the GEJ,otherwise normal EGD s/p small bowel, gastric, and GEJ biopsies obtained. Sedation: propofol per anesthesia dept O2 oximetry, hemodynamic monitoring was performed pre, during, and post procedure. Patient was identified, H&P completed, patient was given full explanation of the procedure as well as associatedrisks and written consent wasobtained prior to procedure. Patient expressed complete understanding of the procedure as well as alternatives to the procedure and to anesthesia and agreed to proceed with the procedure as indicated. Patient was immediately reassessed prior to IV sedation. Following IV sedation, patient was placed in the left lateral decubitus position. Bite block was inserted. Endoscope was passed through the mouth, into the esophagus. Endoscope was advanced into the stomach through the pyloricchannel and into the 2nd portion of duodenum by direct visualization. Endoscopewas withdrawn into the stomach and retroflexion was performed. The endoscope was straightened,the stomach was decompressed. Endoscope was withdrawn into the esophagus then completely removed with the findings as below. Findings: DUODENUM: The bulb and descending portion appeared normal. Biopsies were obtained from the small bowel for histology and to rule out Celiac disease. STOMACH: There was moderate gastritis seen in the antrum and body characterized by erythema and edema. The stomach was otherwise normal including retroflexed views. Biopsies were obtained from the gastric antrum and body for histology and to rule out H. Pylori. ESOPHAGUS: GE junction (upper margin of gastric folds) was at 39 cm from incisors. There was LA grade a esophagitis at the GE junction. Biopsies were obtained from this area and sent to pathology. The esophagus was otherwise normal. Biopsy taken: Yes Complications: None EBL: Minimal Recommendations: -Follow up pathology -Resume normal diet -Try to avoid NSAIDs -Start on PPI once daily -Follow up in the office if symptoms persist -Repeat EGD as needed on -Follow up with PCP Following a period of recovery, patient was seen and given full explanation of the procedure. Patient tolerated the procedure well and will be discharged in satisfactory, stable condition. Hilaria Burgos DO Documented By: Hilaria Burgos DO 08/19/24 0859 Signed By: 08/19/24 1009 [facility]01-02-2025 [place] [address] Gastroenterology H&P Signed Patient: Ashly Mehta MR#: [id number] : 1990 Acct:[id number] Age/Sex: 33 / F Adm Date: 5 Loc: Room: Type: [facility] Attending Dr: Hilaria Burgos DO Copies to: DO Manisha Chakraborty APRN, TERESITA~ Date of Service: 08/19/2024 HISTORY & PHYSICAL: Patient's history with special attention to the cardiovascular, pulmonary systems and the current problem was reviewed with the patient immediately prior to the procedure. Present medications and doses reviewed in the EMR. Allergies and pertinent laboratory tests were also re viewedat this time in the EMR. The physical [...] Hilaria Burgos DO 08/19/24 0859 Signed By: 08/19/24 0954 [facility]12-30-2024 History of Present illness Narrative * Consuelo Love NP - 08/16/2024 11:20 AM EST Images from the original note were not [...] weeks ago for sleep apnea and has beenusing this nightly. Since starting BiPAP therapy, she has been sleeping approximately 6-7 hours pernight. She no longer wakes up every hour [...] She states her bipolar is, really bad, butbelieves her anxiety and depression are fairly well managed. She takes lamotrigine for bipolar disorder and duloxetine for anxiety, depression, and SAD. She follows with psychiatry and counseling. She states her psychiatrist plans to get her a vocational case manager soon. The patient reports difficulty maintaining jobs due to her bipolar disorder, ADHD, and dyslexia. She states she has intermittent visual, auditory, and tactile hallucinations. She reports sometimes she will see or feels bugs crawling that aren't actually there. She will also hear whispering noises in termittently. She lives at home and is independent with all activities of daily living. She managesher medications independently. She drives without difficulty and [...] in frequency. She reports having approximately 2-3 migrainesper month recently. These are located in the [...] relieved by ibuprofen (800 mg dose) and layingin a dark room. The patient denies any [...] Cefaclor, Cephalosporins, Erythromycin base, and Erythromycin Vitals: 12/30/24 1140 BP: (!) 144/92 Pulse: 82 SpO2: 93% Body mass index is 57.33 kg/m . weight: 334 lb Neurologic exam: Mental status and general appearance: Awake and alert with unlabored respirations. Oriented to person, place, and time. Recent and remotememory are intact. Speech is clear and fluent [...] wrist extensors , wrist flexor , and senior energy market coordinator strength 5/5. LUE strength deltoid , biceps , triceps , wrist extensors , wrist flexor , and senior energy market coordinator strength 5/5. RLE strength iliopsoas, quadriceps, tibialis [...] reflex 2+. LLE knee reflex 2+. Coordination: [id number] testing normal. Rapid alternating movements are normal. Gait: Normal. Review and summary of old records: Neuropsychological evaluation at [facility] on 07/12/2024: Current neuropsychologicalevaluation demonstrates, when focused and attentive, preserved cognition [...] cause for the patient's cognitive dysfunction. Vitamin B12and TSH were within normal limits. Neuropsychological evaluation [...] up with psychiatry for aggressive treatment of anxietyand depression, as both of these conditions could contribute to cognitive dysfunction if not adequately managed - I advised the patient to discuss treatment options for ADHD with her psychiatrist to help improveattention/focus - We discussed sleep hygiene, healthy diet, [...] attention, worse memory, cognitive deficits, and other adversehealth effects if not appropriately managed - Follow [...] of multiple psychiatric conditions including anxiety, depression, bipolardisorder, and also ADHD. She is established with psychiatry and counseling but does not believe these are optimally managed. PLAN: - Follow up closely with psychiatry for management Episodic migraine (CMS/HCC) It is my impression that the patient has episodic migraine. She describes headaches which seeminglyto fit most closely with this diagnosis. The patient has had approximately 2-3 migraines per month recently, and these are effectively relieved by ibuprofen. MRI of the brain on 05/27/2024 did not eddie ntify a secondary headache cause. PLAN: - Adequate hydration - May continue ibuprofen 800 mg every 8 hours as needed for migraine . Do not exceed the maximum recommended daily dose as detailed on the medication bottle. Limit use to 10 days per month orless to prevent medication overuse headache The patient states she is working with her psychiatrist to establish care with a vocational case manager, and I believe this is a good idea. I encouraged the patient to follow up with her psychiatrist for this. Diagnosis and treatment options discussed in detail. All questions answered. The patient verbalizesunderstanding and is agreeable to the plan. Discussion in layman's terms. Follow up in the office within 3 to 4 months; sooner if needed for new or worsening symptoms. Consuelo Love NP [facility] documented in this encounterPers[facility] [id number] Evaluation note* Diagnosis Onset Date Resolution Status Admit Date Dysuria acute August 09, 2024 3:46pm Excessive sweating acute Decemb er 2023 3:46pm Encounter for antibody response examination acute August 10:57am History of seizures acute Janua ry 2024 10:57am Hypertension acute August 24, 2024 10:57am Iron deficiency anemia acute Ja nuary 2024 10:57am PCOS (polycystic ovarian syndrome) acute August 24 10:57am Severe obesity (BMI >= 40) acute August 24, 2024 10:57am Wellness examination acute Al tatianna 2024 10:57am Cellulitis acute August 28, 2024 1:44pm [facility] Work Phone: 1([phone]) 400-722711-25-2024 History of Present illness Narrative* Mario Mcknight, PhD - 07/12/2024 8:00 AM EST Images from the original note were not [...] due to jumping around between tasks, wandering mind,lack of motivation, easily overwhelmed, difficulty staying on task, requiring structure and to be told what to do, lost in thought, horrible time management, variable organizational skills, impulsivespending habits, losing periods of time, ditziness, forgetfulness, [...] any history of alcohol/substance abuse or smoking. Inupiat language Slovenian. Completed an associate's degree and was 24 credits shy of a bachelor's degree. Struggled academically and with attention. 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 Responsible for tending to the needs [...] evaluation explained and patient agreed to participate. Struggledsustaining consistent attention and easily overwhelmed throughout assessment, which may have impacted optimal performance at times. Findings are therefore interpreted with caution and reflect an underestimation of actual abilities. Vision/Visuoconstruction: Binocular near-point visual acuity 20/20. Visual valle full to confrontation. Nonverbal abstract reasoning 54th %ile. Copy of a complex geometric design >16th %ile. Motor/Speed of Processing: Right-handed. Plant Maintenance Worker strength 24th %ile with right- hand, 62nd %ile with left. Speeded graphomotor transcoding 1st %ile. Attention/Working Memory: Auditory attention/working memory 31st %ile (7 digits forward, 5 digits backward, 4 digits during sequencing). Speeded visual scanning/attention 12th %ile. Speeded visual divided attention 3rd %ile. Speech/Language: Expressive speech fluent and absent of paraphasic errors. Comprehension adequate for current purposes. Single-word reading 77th %ile. Generative naming to phonemic cues 2nd %ile, 7th%ile to semantic cues. Confrontation naming 21st %ile. Verbal abstract reasoning <1st %ile. Learning and Memory: Learning of a word list 31st %ile (4-1-26-13-13), delayed recall 16th %ile. Recognition discriminability 69th [...] Severe depression and anxiety. Endorsed thoughts of self- harm that she wouldnot act on. Elevated ADHD symptom report. FINDINGS [...] lists, date books, calendars, and pocket-size recorders forinformation that must be remembered. A cellphone is [...] of this individual. Please contact me with myhub at [phone]. documented in this encounterPershing Memorial [id number] History of Present illness Narrative* Mario Mcknight, PhD - 06/28/2024 8:00 AM EST Images from the original note were not [...] due to jumping around between tasks, wandering mind,lack of motivation, easily overwhelmed, difficulty staying on task, requiring structure and to be told what to do, lost in thought, horrible time management, variable organizational skills, impulsivespending habits, losing periods of time, ditziness, forgetfulness, [...] stress). Neurological history includes work-related concussion in 2015/2016. Brain MRI unremarkable. Normal memory labs. Strong family history of ADHD and mental health issues. Psychiatric history includes bipolar II disorder. Meets with psychiatry and therapy. Denied any history of alcohol/substance abuse or smoking. Inupiat language Slovenian. Completed an associate's degree and was 24 credits shy of a bachelor's degree. Struggled academically and with attention. 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 Responsible for tending to the needs [...] disorder (CMS/HCC) Secondary amenorrhea Seizure disorder (CMS/HCC) MEDICATIONS: Current Outpatient Medications Medication Instructions albuterol [...] pain, migraines, and ALEXX with poor sleep quality:The patient will be scheduled for neuropsychological assessment, which will include tests for memory, reasoning, language, problem- solving, attention, and mood. Thank you for allowing me to participate in the care of this individual. Please contact me with myhub at [phone]. [facility]11[facility] History of Present illness Narrative* Gwen Cox, DO - 06/23/2024 12:30 PM EST Images from the original note were not [...] extremely forgetful. She reports difficulty finding words. Thiscan be with things she is very familiar with like a couch she says. She reports forgetting where she is going when she is driving often. 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 She reports vivid dreams and hallucinations. She is visual, auditory and sensory kraus llucinations. She feels like bugs are crawling on [...] disorder (CMS/HCC) Coitus painful for female Depression ([facility]/HCC) Dysthymia ([facility]/HCC) Genital herpes in women GERD (gastroesophageal reflux disease) Hormone imbalance Hypertension (CMS/HCC) Hypertension ([facility]/HCC) Infertility, female Memory changes Menorrhagia Morbid obesity with BMI of 50.0-59.9, adult ([facility]) Pain of ovary PCOS (polycystic ovarian syndrome) Pre-diabetes Right ovarian cyst Seasonal affective disorder ([facility]/HCC) Secondary amenorrhea Seizure disorder ([facility]/HCC) Past Surgical History: Procedure Laterality Date CHOLECYSTECTOMY [...] , wrist extensors , wrist flexor , senior energy market coordinator strength 5/5. LUE Strength deltoid , biceps , triceps , wrist extensors , wrist flexor , senior energy market coordinator strength 5/5. RLE Strength illopsoas, quadriceps, tibialis [...] reflex 2+ . Valiente's sign negative. Coordination: Answjn-sa-laov testing and rapid alternating movements are normal [...] cognitive impairment. She feels this subjectively and doesfeel that stress makes it worse. She did [...] plan, and return instructions [facility] Evaluation note* Diagnosis Onset Date Resolution Status [...] Excessive sweating acute Decemb er 2023 3:46pm [facility] Work Phone: 1(411) 996-784310-29-2024 Evaluation note* Diagnosis Onset Date Resolution Status [...] status unknown deleted August 24, 2024 10:57am [facility] Work Phone: 1(479) 438-398210-29-2024 Evaluation note* Diagnosis Onset Date Resolution Status [...] acute August 10:57am History of seizures acute Janua 2024 10:57am Hypertension acute August 24, 2024 10:57am Iron deficiency anemia acute Ja nuary 2024 10:57am PCOS (polycystic ovarian syndrome) acute August 24 10:57am Severe obesity (BMI >= 40) acute August 24, 2024 10:57am Wellness examination acute Al campuzano 2024 10:57am [facility] Work Phone: 1(287) 997-577009-04-2024 Evaluation note* Diagnosis Onset Date Resolution Status [...] tract infection) acute June 21, 2024 11:13am [facility] Work Phone: 1(705) 471-774309-04-2024 Evaluation note* Diagnosis Onset Date Resolution Status [...] 11:13am Dysuria acute June 25, 2024 9:05am [facility] Work Phone: 1(579) 701-703001-02-2024 Evaluation note* Encounter Date Diagnosis Assessment Notes Treatment Notes Treatment Clinical Notes Aug, Obesity, unspecified classification, unspecified obesity type, unspecified whether serious comorbidity present (ICD-10 - E66.9) Aug, BMI 50.0-59.9, adult (ICD-10 - Z68.43) Aug, Other Summary of Visi t: (A) Importnace of planning to simplify meals (B) Deconstructed Meals (C) Sharing meal ideas (D) Plate method for meal planning ; grocery shortcuts [employer] Other 12-27-2023 Evaluation note* Encounter Date Diagnosis [...] You have been given relevant education handouts. [employer] Other 11-28-2023 Evaluation note* Encounter Date Diagnosis [...] voice recognition software. Please excuse errors in leather tanner. Jun, Dietary surveillance and counseling (ICD-10 - [...] metformin 1000 mg total daily, managed by FILER REPAIRER Jun, Asthma (ICD-10 - J45.909) Jun, Migraine (ICD-10 - G43.909) Jun, Primary hypertension (ICD-10 - I10) Currently on pharmacotherapy Potential for overtreatment given lightheadedness Jun, Other An additional 9 minutes was spent counseling the patient on behavior modification including proper nutrition and physical activity. [employer] Other 11-20-2023 Evaluation note* Encounter Date Diagnosis [...] until you feel better. You may take [id number] Imodium for diarrhea as needed. Avoid dairy foods as well as greasy fried foods. Follow-up with your physician if no improvement in 2 to 3 days. May return to work on Jun, Diarrhea, unspecified type (ICD-10 - R19.7) Diarrhea: adult home care material was printed [employer] Other 11-12-2023 Evaluation note* Encounter Date Diagnosis [...] to 3-day Jun, Bronchitis (ICD-10 - J40) [employer] Other 10-25-2023 Evaluation note* Encounter Date Diagnosis Assessment Notes Treatment Notes Treatment Clinical Notes May, Degenerative lumbar disc (ICD-10 - M51.36) L4-5 Pt would like a referral to pain management regarding her chronic back pain. Her last x-ray of the lumbar spine was completed 10/[address] [facility]--reviewed and in scanned documents. Referral placed. May, [...] disorder (ICD-10 - F31.81) Referral placed to [facility] for medication mangement. [employer] Other 09-19-2023 Evaluation note* Encounter Date Diagnosis Assessment Notes Treatment Notes Treatment Clinical Notes Apr, Exposure to head lice (ICD-10 - Z20.7) Discussed with patient exam is without any signs of current lice infection. May return to work tomorrow. Patient completed next treatment yesterday. Patient verbalized understanding. [employer] Other 09-14-2023 Evaluation note* Encounter Date Diagnosis Assessment Notes Treatment Notes Treatment Clinical Notes Apr, Primary hypertension (ICD-10 - I10) [employer] Other 09-13-2023 Evaluation note* Encounter Date Diagnosis [...] R73.01) Will obtain records from [facility] for most recent labs. Patient is [...] Low back pain, unspecified (ICD-10 - M54.50) [employer] Other 09-12-2023 Evaluation note* Encounter Date Diagnosis [...] 2) Aim for < 45 g carb/meal [employer] Other 08-08-2023 Evaluation note* Encounter Date Diagnosis [...] voice recognition software. Please excuse errors in leather tanner. Mar, Dietary surveillance and counseling (ICD-10 - [...] as sweet tea, replace ice cream with Russian yogurt, use protein shake in the a.m. [...] with the patient, and documenting clinical information. [employer] Other 06-27-2023 Evaluation note* Encounter Date Diagnosis [...] 7 days, sooner if significantly worsening symptoms. [employer] Other 11-26-2022 Evaluation note* Encounter Date Diagnosis [...] 3 days. Off work today and tomorrow [employer] Other 11-19-2021 Evaluation note* Encounter Date Diagnosis [...] Patient care instructions given in writting by [employer] document. [employer] Other 10-31-2021 Evaluation note* Encounter Date Diagnosis [...] Patient care instructions given in writting by [employer] document. [employer] Other 10-14-2021 Evaluation note* Encounter Date Diagnosis Assessment Notes Treatment Notes Treatment Clinical Notes May, Dysuria (ICD-10 - R30.0) May, Urinary tract infection, site not specified (ICD-10 - N39.0) May, Hematuria, unspecified (ICD-10 - R31.9) [employer] Other Evaluation noteNo InformationNort [employer] Other Evaluation noteNo assessment information available [facility] Work Phone: evaluation note* Diagnosis Onset Date Resolution Status Dietary surveillance and counseling acute Exercise counseling acute Food insecurity acute PCOS (polycystic ovarian syndrome) acute Prediabetes acute Severe obesity (BMI >= 40) a [facility] Work Phone: Evaluation note* Diagnosis Onset [...] acute Severe obesity (BMI >= 40) a [facility] Work Phone: evaluation note* Diagnosis Onset Date Resolution Status Lightheadedness acute Menorrhagia acute Palpitations acute Dietary surveillance and counseling acute Exercise counseling acute Severe obesity (BMI >= 40) a [facility] Work Phone: evaluation note* Diagnosis [...] infection) acute [facility] Work Phone: Evaluation note* Diagnosis Cognitive impairment- [...] migraine (CMS/HCC) documented in this encounter [facility]* Diagnosis Well woman exam with routine gynecological exam Routine gynecological examination Exposure to STD Vaginal discharge Leukorrhea, not specified as infective Missed menses PCOS (polycystic ovarian syndrome) Polycystic ovaries Vaginal itching Pruritus of genital organs documented in this encounter [facility] Healthcare[facility] and physical note Author Hilaria Burgos [facility] Note Date/Time August 19, 2024 9: 54am [facility] [address] [place] [address] Gastroenterology H&P Signed Patient: Ashly Mehta MR#: [id number] : 1990 Acct:[id number] Age/Sex: 33 / F Adm Date: 5 Loc: Room: Type: [facility] Attending Dr: Hilaria Burgos DO Copies to: Hilaria Burgos, DO Manisha Marc, ROSITA, BRINE TANK TENDER~ Date of Service: 08/19/2024 HISTORY & PHYSICAL: [...] 0859 Signed By: <Electronically signed by Hilaria Burgos DO> 08/19/24 0909 [facility] Work Phone: Hisngca general Narrative - Reported* Type Description Date Medical History Asthma Medical History Blood transfusion Medical History Seizure Disorder Medical History migraine headache w/out Aura Medical History herpes Medical History PCOS Medical History hypertensive heart disease Medical History tachycardia Medical History pre diabetes Surgical History Colposcopy Surgical History cholecystectomy Surgical History wisdom teeth Hospitalization History Pneumonia Hospitalization History Hospitalized for blood l oss 2010 [employer] Other Hisnrmt general Narrative - Reported* Type Description Date [...] History Hospitalized for blood l oss 2010 [employer] Other history general Narrative - Reported* Type [...] History Hospitalized for blood l oss 2010 [employer] Other history general Narrative - Reported* Type [...] History Hospitalized for blood l oss 2010 [employer] Other history general Narrative - Reported* Type [...] History Hospitalized for blood l oss 2010 [employer] Other history general Narrative - Reported* Type [...] History Hospitalized for blood l oss 2010 [employer] Other History general Narrative - Reported* Type [...] History Hospitalized for blood l oss 2010 [employer] Other Hospital Discharge instructionsAmbulatory Orders* Referral to Gastroenterology Time Frame: 06/21/24, Location: None Selected * Referral to Urology Time Frame: 06/21/24, Location: None Selected [facility] Work Phone: Reason for referral (narrative)* Reason *FU 06/20 would sherif garnett referral to pscyiatrist -- was recently diagnosed with bipolar and would like medication management. Diagnosis 1 Bipolar 2 disorder ( F31.81) Referral Organization [facility] [employer] sharan Referring Provider First Name Manisha Referring Provider Last Name Charlyacher Referring Provider Specialty Nurse Pract ernesto Referred Organization [facility] and [facility] Referred Address [address] ,[place], [place],[address] Referred Provider Specialty Psychiatry Referral Priority Routine General Notes Paola Henderson 01:25:30 PM >received today, not sure if [facility] does medication management, waiting for notes to be locked Paola Henderson 06/13/2023 10:34:39 AM >notes locked, referral faxed Clinical Notes p: [phone] f: [phone] [place] [facility] Reason *FU 06/20 would sherif garnett referral to pain management for other options for pain control for back pain Diagnosis 1 Degenerative lumbar disc (M51.36) Referral Organization [facility] [employer] Lineagenjose eduardo Referring Provider First Name Manisha Referring Provider Last Name Charlyachetad Referring Provider Specialty Nurse Prachari orozco Referred Organization [facility] Referred Provider Yrn Parsons Referred Address [address] [facility],[place],[address] Referred Provider Specialty Pain Medicin e Referral Priority Routine General Notes KerriGordon willardya 01:21:23 PM >received today, waiting for notes to be locked Paola Henderson 06/13/2023 10:25:26 AM >notes locked, referral faxed Clinical Notes f: [phone] [employer] Other Reason for visit Narrative* Consultation (Routine) - Closed Specialty Diagnoses / Procedures Referred By Ela noriega Referred To Contact Neurology Diagnoses Aphasia Personal history of other specified conditions Other amnesia Procedures DC OFFICE/OUTPATIENT [facility] MDM 30 MINUTES Manisha Marc, STACK YIELD ENGINEER [address] [facility] [facility] [place] [place] [address] Phone: tel: fax: Sugey Dinero MD [address] [place] [address] Phone: tel: fax: Referral ID Status Reason Start Date Expiration Date V isits Requested Visits Authorized [id number] Closed Consult and Treat 05/28/2024 11/24/2024 1 1 [facility] Narrative* Consultation (Routine) - Closed Specialty Diagnoses / Procedures Referred By Ela noriega Referred To Contact Psychology Diagnoses Cognitive impairment Procedures DC OFFICE/OUTPATIENT [facility] MDM 60 MINUTES Gwen Cox DO [address] [place] [address] Phone: tel: fax: Mario Mcknight, PhD [address] [address] Phone: tel: fax: Referral ID Status Reason Start Date Expiration Date V isits Requested Visits Authorized [id number] Closed Specialty Services Required 06/23/2024 12/20/2024 1 1 [facility] Summary Purpose Family History Relationship Condition Age [...] Severe obesity (BMI >= 40) Chief Complaint Memory Concerns Reason for Visit Aphasia History [...] 9 :22am Fatty liver disease, nonalcoholic Novemb 2023 11:13am Frequent UTI June 21, 2024 [...] August 24, 2024 10:57am History of seizures August 24, 2024 10 :57am Hypertension August 24, 2024 10 :57am Iron deficiency anemia August 24, 2024 10:57am PCOS (polycystic ovarian syndrome) Augua 2024 10:57am Severe obesity (BMI >= 40) August 24, 2024 10:57am Wellness examination August 24, 2024 1 0:57am Chief Complaint Admit Date uti symptoms August 09, 2024 3:46pm R30.0 August 09, 2024 4:05pm MEHRAN/intestinal malabsorption/elevate whi te blood August 19, 2024 8:38am MEHRAN/intestinal malabsorption/elevate whi te blood August 19, 2024 8:59am Work Physical August 24, 2024 10 :57am BH August 27, 2024 1 2:00pm Rash, swelling at injection site infecte d/reaction August 28, 2024 1:44pm Cough, congestion, nausea/vomiting, loos e stool September 27, 2024 3:23pm Reason for Visit Admit Date Dysuria August 09, 2024 3:46pm Excessive sweating August 09, 2024 3:46pm Encounter for antibody response examinat ion August 24, 2024 10:57am History of seizures August 24, 2024 10 :57am Hypertension August 24, 2024 10 :57am Iron deficiency anemia August 24, 2024 10:57am PCOS (polycystic ovarian syndrome) Aug 2024 10:57am Severe obesity (BMI >= 40) August 24, 2024 10:57am Wellness examination August 24, 2024 1 0:57am Cellulitis August 28, 2024 1 :44pm Chief Complaint Admit Date MEHRAN/intestinal malabsorption/elevate whi te blood August 19, 2024 8:38am MEHRAN/intestinal malabsorption/elevate whi te blood August 19, 2024 8:59am Work Physical August 24, 2024 10 :57am Rash, swelling at injection site infecte d/reaction August 28, 2024 1:44pm Cough, congestion, nausea/vomiting, loos e stool September 27, 2024 3:23pm BH November 09, 2024 1:1 6pm painful lump on jawline November 15, 2024 1:32pm Reason for Visit Admit Date Encounter for antibody response examinat ion August 24, 2024 10:57am History of seizures August 24, 2024 10 :57am Hypertension August 24, 2024 10 :57am Iron deficiency anemia August 24, 2024 10:57am PCOS (polycystic ovarian syndrome) Janua 2024 10:57am Severe obesity (BMI >= 40) August 24, 2024 10:57am Wellness examination August 24, 2024 1 0:57am Cellulitis August 28, 2024 1 :44pm Viral illness September 27, 2024 3:23pm Swelling, mass, or lump in head and neck November 15, 2024 1:32pm Additional Source Comments INFORMATION SOURCE (unrecogn ized section and content) DATE CREATED AUTHOR 08/27/2021 [facility] DATE CREATED AUTHOR AUTHOR'S ORGANIZ ATION 01/01/2023 [facility] DATE CREATED AUTHOR AUTHOR'S ORGANIZ ATION 01/30/2024 [facility] DATE CREATED AUTHOR AUTHOR'S ORGANIZ ATION 06/25/2024 [facility] DATE CREATED AUTHOR AUTHOR'S ORGANIZ ATION 11/09/2024 [facility] DATE CREATED AUTHOR AUTHOR'S ORGANIZ ATION 11/11/2024 [facility] d[facility] Specialists EPIC REASON FOR VISIT (unrecogniz ed section and content) Reason Comments Memory difficulty Reason Comments Well Women Visit STI Screening Care Teams (unrecognized sec tion and content) Team Status: Active Member Role Status Dates Manisha Marc APRN STACK YIELD ENGINEER-Damion Primary Care Provider Active Team Status: Active Member Role Status Dates ROSITA Ehceverria Primary Care Provider, Attending Provider Active Team Status: Inactive Member Role Status Dates Manisha Marc APRN NP-Damion Primary Care Provider Active Celio Mullins DO Attending Provider Active Team Status: Inactive Member Role Status Dates Manisha Marc APRN STACK YIELD ENGINEER-C Primary Care Provider Active Clinton Frazier MD Attending Provider Active Team Status: Inactive Member Role Status Dates Manisha Marc APRN STACK YIELD ENGINEER-C Primary Care Provider Active Start: July 032022 End: July 03, 2023 Celio Mullins DO Attending Provider Active St art: July 03, 2023 End: July 03, 2023 Team Status: Active Member Role Status Dates Manisha Marc APRN STACK YIELD ENGINEER-C Primary Care Provider Active Start: July 032022 [...] Member Role Status Dates Manisha Marc APRN STACK YIELD ENGINEER-C Primary Care Provider Active Start: July End: July 19, 2023 Clinton Frazier MD Attending Provider Active Start: July 19, 2023 End: July 19, 2023 Team Status: Inactive Member Role Status Dates Manisha Marc APRN STACK YIELD ENGINEER-C Attending Provider Act rafal Start: August 13, 2023 End: August 13, 2023 Team Status: Inactive Member Role Status Dates Nely Cage [facility] Attending Provider Active Start: August 19, 2023 End: August 19, 2023 Team Status: Active Member Role Status Dates Manisha Marc APRN STACK YIELD ENGINEER-C Primary Care Provider, Attending Provider Active Start: August 19, 2023 Team Status: Inactive Member Role Status Dates Manisha Marc APRN STACK YIELD ENGINEER-C Attending Provider Act rafal Start: September 03, 2023 End: September 03, 2023 Team Status: Inactive Member Role Status Dates Manisha Marc APRN STACK YIELD ENGINEER-C Primary Care Provider Active Start: October 012023 End: October 01, 2023 Celio Mullins DO Attending Provider Active St art: October 01, 2023 End: October 01, 2023 Team Status: Active Member Role Status Dates Manisha Marc APRN STACK YIELD ENGINEER-C Primary Care Provider Active Start: August 142022 Edward Gilmore MD Attending Provider Active Start: August 14, 2023 Team Status: Active Member Role Status Dates Manisha Marc APRN STACK YIELD ENGINEER-C Primary Care Provider, Attending Provider Active Start: October 06, 2023 Team Status: Inactive Member Role Status Dates Manisha Marc APRN STACK YIELD ENGINEER-C Primary Care Provider Active Start: October 082023 End: October 08, 2023 Gwen Cox DO Attending Provider Active Start: October 08, 2023 End: October 08, 2023 Team Status: Active Member Role Status Dates Manisha Marc APRN STACK YIELD ENGINEER-C Primary Care Provider, Attending Provider Active Start: October 30, 2023 Team Status: Inactive Member Role Status Dates Manisha Marc APRN STACK YIELD ENGINEER-C Primary Care Provider, Attending Provider Active Start: November 03, 2023 End: November 03, 2023 Team Status: Active Member Role Status Dates Manisha Marc APRN STACK YIELD ENGINEER-C Primary Care Provider Active Start: August Edward Gilmore MD Attending Provider Active Start: September 10, 2023 Team Status: Inactive Member Role Status Dates Manisha Marc APRN STACK YIELD ENGINEER-C Primary Care Provider Active Start: November 26, 2023 End: November 26, 2023 Celio Mullins DO Attending Provider Active St art: November 26, 2023 End: November 26, 2023 Team Status: Active Member Role Status Dates Manisha Marc APRN STACK YIELD ENGINEER-C Primary Care Provider Active Start: January 01, 2024 Edward Gilmore MD Attending Provider Active Start: January 01, 2024 Team Status: Active Member Role Status Dates Manisha Marc APRN STACK YIELD ENGINEER-C Primary Care Provider Active Start: April 03, 2024 Edward Gilmore MD Attending Provider Active Start: April 03, 2024 Team Status: Active Member Role Status Dates Manisha Marc APRN STACK YIELD ENGINEER-C Primary Care Provider Active Start: April 12, 2024 Jaymie Griffin DO Attending Provider Active Start: April 12, 2024 Team Status: Inactive Member Role Status Dates Manisha Marc APRN STACK YIELD ENGINEER-C Primary Care Provider, Attending Provider Active Start: April 21, 2024 End: April 21, 2024 Team Status: Active Member Role Status Dates Manisha Marc APRN STACK YIELD ENGINEER-C Primary Care Provider Active Start: April 12, 2024 Agusto Rojas DO Attending Provider Active Sta rt: April 12, 2024 Team Status: Active Member Role Status Dates Manisha Marc APRN STACK YIELD ENGINEER-C Primary Care Provider Active Start: April 15, 2024 Agusto Rojas DO Attending Provider Active Sta rt: April 15, 2024 Team Status: Active Member Role Status Dates Manisha Marc APRN STACK YIELD ENGINEER-C Primary Care Provider Active Start: April 192023 Edward Gilmore MD Attending Provider Active Start: May 13, 2024 Team Status: Active Member Role Status Dates Manisha Marc APRN STACK YIELD ENGINEER-C Primary Care Provider, Attending Provider Active Start: June 07, 2024 Team Status: Inactive Member Role Status Dates Manisha Marc APRN STACK YIELD ENGINEER-C Primary Care Provider Active Start: May End: [...] Member Role Status Dates Manisha Marc APRN STACK YIELD ENGINEER-C Primary Care Provider, Attending Provider Active Start: June 21, 2024 End: June 21, 2024 Electric Motorman Relationship Specialty Start Date End Date Thaddeus Rod MD [address] [place] [address] PCP - General Family Medicine 04/24/23 Electric Motorman Relationship Specialty Start Date End Date Thaddeus Rod MD [address] [place] [address] PCP - General Family Medicine 04/24/23 Electric Motorman Relationship Specialty Start Date End Date Thaddeus Rod MD [address] [place] [address] PCP - General Family Medicine 04/24/23 Team Status: Inactive Member Role Status Dates Manisha Marc APRN STACK YIELD ENGINEER-C Primary Care Provider, Attending Provider Active Start: June 25, 2024 End: June 25, 2024 Team Status: Inactive Member Role Status Dates Manisha Marc APRN STACK YIELD ENGINEER-Damion Attending Provider Act rafal Start: June 25, 2024 End: June 25, 2024 Electric Motorman Relationship Specialty Start Date End Date Thaddeus Rod MD [address] [place] [facility] [address] PCP - General Family Medicine 04/24/23 Electric Motorman Relationship Specialty Start Date End Date Thaddeus Rod MD [address] [place] [facility] [address] PCP - General Family Medicine 04/24/23 Electric Motorman Relationship Specialty Start Date End Date Thaddeus Rod MD [address] [place] [address] PCP - General Family Medicine 04/24/23 Team Status: Active Member Role Status Dates Tiffanie Villalobos MD Attending Provider Active St art: June 29, 2024 Team Status: Active Member Role Status Dates ROSITA Echeverria Primary Care Provider Active Start: August 032023 Edward Gilmore MD Attending Provider Active Start: August 03, 2024 Team Status: Inactive Member Role Status Dates ROSITA Echeverria Primary Care Provider, Attending Provider Active Start: August 09, 2024 End: August 09, 2024 Team Status: Inactive Member Role Status Dates Manisha Marc APRN STACK YIELD ENGINEER-C Attending Provider Active Start: July End: August 09, 2024 PHYSICIAN NO FAMILY Primary Care Provider Active Start: August 09, 2024 End: August 09, 2024 Team Status: Inactive Member Role Status Dates Hilaria Burgos , DO Attending Provider Active St art: August 19, 2024 End: August 19, 2024 Manisha Marc APRN STACK YIELD ENGINEER-C Primary Care Provider Active Start: August 19, 2024 End: August 19, 2024 Team Status: Active Member Role Status Dates Hilaria Burgos , DO Attending Provider, Other Provider Active Start: August 19, 2024 Manisha Marc APRN STACK YIELD ENGINEER-C Primary Care Provider Active Start: August Team Status: Inactive Member Role Status Dates Manisha Marc APRN STACK YIELD ENGINEER-C Primary Care Provider, Attending Provider Active Start: August 24, 2024 End: August 24, 2024 Team Status: Active Member Role Status Dates Manisha Marc APRN STACK YIELD ENGINEER-C Primary Care Provider Active Start: August 24, 2024 Edward Gilmore MD Attending Provider Active Start: August 24, 2024 Team Status: Inactive Member Role Status Dates Manisha Marc APRN STACK YIELD ENGINEER-C Primary Care Provider Active Start: August End: August 28, 2024 Viry Holder APRN Attending Provider Active S tart: August 28, 2024 End: August 28, 2024 Team Status: Active Member Role Status Dates Manisha Marc APRN STACK YIELD ENGINEER-C Primary Care Provider Active Start: August Edward Gilmore MD Attending Provider Active Start: August 27, 2024 Team Status: Inactive Member Role Status Dates Manisha Marc APRN STACK YIELD ENGINEER-C Primary Care Provider Active Start: September 272024 End: September 27, 2024 Viry Holder APRN Attending Provider Active S tart: September 27, 2024 End: September 27, 2024 Electric Motorman Relationship Specialty Start Date End Date Thaddeus Rod MD [address] [place] [address] PCP - General Family Medicine 04/24/23 Team Status: Active Member Role Status Dates Manisha Marc APRN STACK YIELD ENGINEER-C Primary Care Provider Active Start: October 122024 Tiffanie Villalobos MD Attending Provider Active St art: October 12, 2024 Team Status: Active Member Role Status Dates Manisha Marc APRN STACK YIELD ENGINEER-Damion Primary Care Provider Active Start: November 03, 2024 Marko Oscar DO Attending Provider Active Start : November 03, 2024 Team Status: Active Member Role Status Dates Manisha Marc APRN STACK YIELD ENGINEER-C Primary Care Provider Active Start: November 09, 2024 Edward Gilmore MD Attending Provider Active Start: November 09, 2024 Team Status: Inactive Member Role Status Dates Manisha Marc APRN STACK YIELD ENGINEER-C Primary Care Provider, Attending Provider Active Start: November 15, 2024 End: November 15, 2024 Goals (unrecognized section and content) [...] BE BASED ON THE PRIMARY CLINICAL RECORDS. [facility] [employer] [facility]. provides no warranty or guarantee of the accuracy or completeness of information in this document.
== END 2024-11-26 08:59 | disposition home or self-care (01) ==
LOC: MRI 08:58
PROVIDERS: PCP Nurse Practitioner Family; Visit Provider Nurse Practitioner
DX: M48.062 Spinal stenosis, lumbar region with neurogenic claudication (principal); M51.369 Other intervertebral disc degeneration, lumbar region without mention of lumbar back pain or lower extremity pain
CPT/HCPCS: 72148

== ENCOUNTER 2024-12-01 07:59 | Outpatient (OUT) | payer OTHER, SELFPAY ==
--- NOTE | 2024-12-01 08:12 | CT_ITS ---
The [address] [address] Patient Name: DIMITRY PACK MRN: [id number] date: 1990 Sex: F Assigned Patient Location: CT Current Patient Location: CT Accession/Order Number: [id number] Exam Date: 12/01/2024 08:44 Report Date: 12/01/2024 08:55 At the request of: CHRIS LOPEZ Procedure: CT soft tissue neck w con CT SOFT TISSUE NECK WITH CONTRAST COMPARISON: None CLINICAL DATA: Tender enlarging submandibular lump on the right. Spiral images were obtained through the neck following 100 MLO Omnipaque 300. Clinical displaced the site of clinical concern. This CT exam was performed using one or more following dose reduction techniques: Automated exposure control, adjustment of the mA and/or kV according to patient size, or use of iterative reconstruction technique. Evaluation of the lower neck is slightly limited by body habitus. No thyroid nodularity is identified. The submandibular and parotid glands appear symmetric. There is mild tonsillar hypertrophy. There is no evidence of abscess. The epiglottis and vocal cords are within normal limits. The airway is patent throughout its course with normal appearance of the mucosal surfaces. There are scattered, shotty cervical lymph nodes. The largest are in the jugulodigastric region with short axis dimension up to 8-9 mm. There are also bilateral submandibular lymph nodes with fatty abran. This includes a lymph node near the area which is marked as palpable. No other subcutaneous abnormalities are seen at that site. There is slight reversal of the normal cervical curvature. Degenerative changes are present at C5-6 where there is disc space narrowing and endplate spurring. The imaged paranasal sinuses and mastoid air cells are clear. The upper imaged lungs show no contributory findings. CT/CT soft tissue neck w con IMPRESSION: SHOTTY CERVICAL LYMPH NODES, INCLUDING IN THE AREA OF PALPABLE CONCERN. MILD TONSILLAR HYPERTROPHY. OTHER ACUTE NECK FINDINGS. Impression dictated by: Cici Jordan M.D.12/01/2024 8:55 AM Dictation Location: [place] [address] Electronically authenticated by: [id number] Y Date: 12/01/2024 08:55
--- OUTSIDE RECORDS SUMMARY | 2024-12-01 08:14 | XMS_ITS | CCD ---
Author Organization [facility] Providers Care Surgical Instrument Mechanic Name Role Phone BRENT KINNEY Referring Unavailable [...] ., DR COLLADO Consulting Unavailable ZIEBER, DR USGEY Ibrahim Consulting Unavailable CELESTINA ., DR COLLADO Admitting Unavailable HOUSE, DR NUR Primary Care Unavailable CELESTINA ., DR OCLLADO Attending Unavailable CELESTINA ., DR COLLADO Consulting [...] Provider MD Edward Gilmore Attending Provider [phone] ROSITA Marc Attending Provider DO Gwen Cox Attending Provider [phone] ROSITA Marc Primary Care Provider MD Edward Gilmore Attending Provider [phone] ROSITA Marc Primary Care Provider MD Edward Gilmore Attending Provider Garret CROWLEY, Andrius Vytautcortez Attending Unavailable Giedrakatalina CROWLEY, Andrius Vytautas Attending Unavailable Garret CROWLEY, Andrius Vytautas Attending Unavailable Giwill CROWLEY, Andrius Vytautas Attending Unavailable ROSITA Marc Primary Care Provider MD Edward Gilmore Attending Provider [phone] ROSITA Marc Primary Care Provider MD Edward Gilmore Attending Provider ROSITA Hassan Attending Provider [phone] ROSITA Marc Primary Care Provider MD Edward Gilmore Attending Provider ROSITA Hassan Attending Provider Thaddeus Rod MD Primary Care Provider Denyrbgareth EMPLOYEE RELATIONS DIRECTOR, Manisha Primary Care Provider Deirdre CROWLEY, Edward Attending Provider Casandra Hassan APRN Attending Provider Manisha Marc APRN Attending Provider [phone] Tari EMPLOYEE RELATIONS DIRECTOR, Manisha Primary Care Provider Edward Gilmore MD Attending Provider NO FAMILY, PHYSICIAN Primary Care Provider Unava ilable Ly DO, Hilaria L Attending Provider Denyrbgareth BECKER, Manisha Primary Care Provider Edward Gilmore MD Attending Provider [phone] DenyrbManisha servin APRN Attending Provider [phone] Edward Gilmore MD Attending Provider Denyrbacher Manisha [...] Attending Unavailable CONSUELO LOVE Attending Unavailable MELA ANEDRSON Attending Unavailable GWEN COX Attending Unavailable MANISHA MARC Referring Unavailab MARIO Garcia Attending Unavailable GWEN COX Referring Unavailable CONSUELO LOVE Attending Unavailable Hilaria Burgos DO Attending Provider [phone] Manisha Marc APRN Primary Care Provider Edward Gilmore MD Attending Provider [phone] Allergies Allergy Classification Reported Allergen(s) Allergy Type Date of Onset Reaction(s) Facility (20 sources) Amoxicillin; Translations: [AMOXICILLIN] Drug Allergy 07-08-20 16 rash [facility] Repository (20 sources) Cefaclor; Translations: [CEFACLOR] Drug Allergy 04-14-20 15 [facility] Repository (20 sources) Erythromycin; Translations: [ERYTHROMYCIN] Drug Allergy 04-14-[address] [facility] Repository (19 sources) Cefaclor; Translations: [Ceclor] Drug Allergy 04-17-20 15 [facility] Repository (20 sources) Erythromycin Drug Allergy 04-17-20 15 Unknown Reaction, [facility] Repository (20 sources) Cephalosporins (Antibiotic); Translations: [Cephalosporins] Allergy to substance 12-10-19 22 Unknown Reaction, Rash [facility] (2 sources) Lactulose Drug Allergy 02-12-20 20 Unknown Reaction [facility] (1 source) Erythromycin Drug Allergy 09-27-19 25 [facility] Repository Medications Current Medications Medication Drug Class(es) Dates Sig (Normalized) Sig (Original) [id number] 200 actuat albuterol 0.09 mg/actuat metered dose [...] 11/03/2024 Discontinued take 1 capsule by mo [facility] every twenty-four hours Vraylar 1.5 MG 1 [...] Start: 05-31-2021 take 1 capsule by mo [facility] every twelve hours Macrobid 100 MG 1 [...] 12:24pm Start: 05-31-2021 [facility] Pyridium 200 MG 1 [...] [facility] Preg Test, Ur Negative Negative [facility] Human papilloma virus 16+18+ 31+33+35+39+45+51+52+56+58+59+66+68 DNA [Presence] in [place] 11-03-2024 HPV 16+18+31+33+35+39+45+51 +52+56+58+59+66+68 DNA Probe+sig amp Ql (Cvx) Human papilloma virus 16+18+31+33+35+39+45+51 +52+56+58+59+66+68 DNA [Presence] in Cer Negative [facility] Comment on above: This nucleic acid am plification test detects fourteen high-risk HPV types (16,18,31,33,35,39,45,51,52,56,58,59,66,68)without differentiation.Performed at: = - [facility] [id number] Director: Monse Cardona MD, Phone: [phone] at: - [facility] [id number] Director: Monse Cardona MD, Phone: [phone] No Panel Informationon 11-03 HPV High Risk Other Comment Note . [facility] Comment on above: TESTS RESULT FLAG UN ITS REF RANGE LAB -DIAGNOSIS: 02 NEGATIVE FOR INTRAEPITHELIAL LESION OR MALIGNANCY.Specimen adequacy: 02 Satisfactory for evaluation. Endocervical and/or squamous metaplastic cells (endocervical component) are present.Performed by: 02 Hiro Garces, Auxiliary Engineer (ASCP). 02Note: Note 02 The Pap smear [...] <-Panic Low,>-Panic High,A-Abnormal,AA-Critical Abnormal ------Performed at:[address] [facility] [address] Monse Cardona MD, Reference Lab Test Patient Age Note . [facility] Comment on above: TESTS RESULT FLAG UN ITS REF RANGE LAB - Clinician Provided Cytology Information Source.............Cervix;Endocervix No. of containers..01 ThinPrep VialAge Jean-Pierre YOON Elise... 3065 FLAG LEGEND: L-Low Normal,H-High Normal,LL-Alert Low,HH-Alert High <-Panic Low,>-Panic High,A-Abnormal,AA-Critical Abnormal ------Performed at:01 [address] [facility] [place] [address] Monse Cardona MD, Basophils Auto (Bld) [#/Vol] on 10-12-2024 Basophils (Bld) [#/Vol] Automated basoph il count 0.0-0.1 [facility] Basophils/100 WBC Auto (Bld) on 10-12-2024 Basophils/100 WBC (Bld) Automated basophil % 0. 2-2.0 [facility] Eosinophils/100 WBC Auto (Bl d)on 10-12-2024 Eosinophils/100 WBC (Bld) Automated eosinophil % 0.9-7.0 [facility] Erythrocyte distribution wid th Auto (RBC) [Ratio]on 10-12-2024 Erythrocyte distribution width (RBC) [Ratio] Erythrocyte distribution width [Ratio] by Automated count 11.0-15.0 [facility] Estimated glomerular filtrat ion rate (GFR) non- Americanon 10-12-2024 GFR/1.73 sq M.predicted among non-blacks MDRD (S/P/Bld) [Vol rate/Area] Estimated glomerular filtration rate (GFR) non- >=60 mL/min/1.7 3m 2 [facility] Hematocrit Auto (Bld) [Volum e fraction]on 10-12-2024 Hematocrit (Bld) [Volume fraction] Hematocrit [Volume Fraction] of Blood by Automated count 36.0-48.0 [facility] Hemoglobin [Mass/volume] in Bloodon 10-12-2024 Hemoglobin (Bld) [Mass/Vol] Hemoglobin [Mass/volume] in Blood 12.0-16.0 [facility] Iron binding capacity [Mass/ volume] in Serum or Plasmaon 10-12-2024 Iron binding capacity [Mass/Vol] Iron binding capacity [Mass/volume] in Serum or Plasma 250.0-450. 0 [facility] Iron saturation [Mass Fracti on] in Serum or Plasmaon 10-12-2024 Iron saturation [Mass fraction] Iron saturation [Mass Fraction] in Serum or Plasma [facility] Laboratory - Chemistry and C hemistry - challengeon 10-12-2024 Calcium [Mass/Vol] 9.0 mg/dL 8.5-10.1 [facility] Chloride [Moles/Vol] 104 mmol/L 98-107 [facility] CO2 [Moles/Vol] 26.8 mmol/L 21.0-32.0 [facility] Creatinine [Mass/Vol] 0.73 mg/dL 0.55-1.02 [facility] Ferritin [Mass/Vol] 321.0 ng/mL High 8.0-252.0 [facility] GFR/1.73 sq M.predicted MDRD (S/P/Bld) [Vol rate/Area] mL/min/{1.73_m2} >=60 mL/min/1.7 3m 2 [facility] Glucose [Mass/Vol] 89 mg/dL 74-106 [facility] Iron [Mass/Vol] 70.0 ug/dL 50.0-170.0 [facility] Potassium [Moles/Vol] 4.4 mmol/L 3.5-5.1 [facility] Sodium [Moles/Vol] 138 mmol/L 136-145 [facility] Urea nitrogen [Mass/Vol] 10.0 mg/dL 7.0-18.0 [facility] Urea nitrogen/Creatinine [Mass ratio] 13.7 mg/mg [facility] Laboratory - Hematology and Cell countson 10-12-2024 ESR (Bld) [Velocity] 46 mm/h High <=20 [facility] Immature granulocytes/100 WBC (Bld) 0.3 % 0.0-0.5 [facility] Leukocytes [#/volume] correc carmelita for nucleated erythrocytes in Blood by Automated counon 10-12-2024 WBC corrected for nucl RBC Auto (Bld) [#/Vol] Leukocytes [#/volume] corrected for nucleated erythrocytes in Blood by Automated coun 4.0-11.0 [facility] Lymphocytes Auto (Bld) [#/Vo l]on 10-12-2024 Lymphocytes (Bld) [#/Vol] Lymphocytes [#/volume] in Blood by Automated count 1.2-3.8 [facility] Lymphocytes/100 WBC Auto (Bl d)on 10-12-2024 Lymphocytes/100 WBC (Bld) Lymphocytes/100 leukocytes in Blood by Automated count 20.5-60.0 [facility] MCH Auto (RBC) [Entitic mass ]on 10-12-2024 MCH (RBC) [Entitic mass] MCH [Entitic mass] by Automated count 26.7-34.0 [facility] MCHC Auto (RBC) [Mass/Vol]on 10-12-2024 MCHC (RBC) [Mass/Vol] MCHC [Mass/volume] by Automated count 29.9-35.2 [facility] MCV Auto (RBC) [Entitic vol] on 10-12-2024 MCV (RBC) [Entitic vol] MCV [Entitic vol ume] by Automated count 81.0-99.0 [facility] Monocytes Auto (Bld) [#/Vol] on 10-12-2024 Monocytes (Bld) [#/Vol] Automated blood monocyte count 0.3-0.8 [facility] Monocytes/100 WBC Auto (Bld) on 10-12-2024 Monocytes/100 WBC (Bld) Automated monocyte % 1. 7-12.0 [facility] Neutrophils Auto (Bld) [#/Vo l]on 10-12-2024 Neutrophils (Bld) [#/Vol] Neutrophils [#/volume] in Blood by Automated count 1.4-6.5 [facility] Neutrophils/100 WBC Auto (Bl d)on 10-12-2024 Neutrophils/100 WBC (Bld) Automated neutrophil % 43.0-75.0 [facility] No Panel Informationon 10-12 C-Reactive Protein, Quantitative 1.07 mg/dL High <=0.50 [facility] Eosinophils # (Auto) 0.2 10 3/uL 0.0-0.7 [facility] Immature Granulocyte # (Auto) 0.03 10 3/uL 0.00-0.03 [facility] Platelet mean volume Auto (B ld) [Entitic vol]on 10-12-2024 Platelet mean volume (Bld) [Entitic vol] Platelet mean volume [Entitic volume] in Blood by Automated count Low 9.5-13.5 [facility] Platelets Auto (Bld) [#/Vol] on 10-12-2024 Platelets (Bld) [#/Vol] Platelets [#/vol ume] in Blood by Automated count 150-450 [facility] RBC Auto (Bld) [#/Vol]on RBC (Bld) [#/Vol] Erythrocytes [#/volu me] in Blood by Automated count 4.20-5.40 [facility] Serum or plasma anion gap de terminationon 10-12-2024 Anion gap [Moles/Vol] Serum or plasma an ion gap determination [facility] Influenza virus B Ag [Presen ce] in Upper respiratory specimen by Rapid immunoassayon 09-27-2024 FLUBV Ag IA.rapid Ql (Nph) Influenza virus B Ag [Presence] in Upper respiratory specimen by Rapid immunoassay [facility] No Panel Informationon 09-27 Influenza Type A (Rapid) Negative [facility] POC SARS CoV-2 [facility] Iron binding capacity [Mass/ volume] in Serum or Plasmaon 08-24-2024 Iron binding capacity [Mass/Vol] Iron binding capacity [Mass/volume] in Serum or Plasma 250.0-450. 0 [facility] Iron saturation [Mass Fracti on] in Serum or Plasmaon 08-24-2024 Iron saturation [Mass fraction] Iron saturation [Mass Fraction] in Serum or Plasma [facility] Laboratory - Chemistry and C hemistry - challengeon 08-24-2024 Iron [Mass/Vol] 81.0 ug/dL 50.0-170.0 [facility] Measles virus IgG Ab [Units/ volume] in Serum by Immunoassayon 08-24-2024 MeV IgG IA Qn (S) Measles virus IgG Ab [Units/volume] in Serum by Immunoassay Immune >16.4 [facility] Comment on above: Negative <13.5 Equiv ocal 13.5 - 16.4 Positive >16.4Presence of antibodies to Rubeola is presumptive evidenceof immunity except when acute infection is suspected. No Panel Informationon 08-24 Rubella IgG Antibody <0.90 index Abnormal Immune >0.99 [facility] Comment on above: Non-immune <0.90 Equ ivocal 0.90 - 0.99 Immune >0.99 Serum mumps virus IgG antibo dy assay (units/volume)on 08-24-2024 MuV IgG Qn (S) Serum mumps virus Ig G antibody assay (units/volume) Abnormal Immune >10.9 [facility] Comment on above: Negative <9.0 Equivo heike 9.0 - 10.9 Positive >10.9A positive result generally indicates past exposure toMumps virus or previous vaccination.Performed at: [facility] [id number] Director: Cassius Zhong PhD, Phone: [phone] Pathology study report docum entOrdered By: Thaddeus Shah on 08-20-2024 Pathology study [facility] Other HCG ( test) Bello mejia Ql (U)Ordered By: Hilaria Burgos on 08-19-2024 HCG ( test) Ql (U) Urine human chorionic gonadotropin (hCG) detection by immunoassay [facility] HCG,Urineon 08-19-2024 Beta HCG ( test) Ql (U) Negative Normal [facility] Comment on above: Result Comment: PERF ORMED BY: [place] [id number] PATHOLOGIST IRON INSTALLER RYLAN BENEDICT M.D. Performed By: #### U HCG #### [address] Justyn 08-19-2024 L --- Specimen: Received: 08/19/24 Status: ARLINE Zavala Num: [id number] Spec Type: Surgical Subm Dr: Hilaria Burgos DO Tissues: A Small Intestine - Biopsy/Polyp (SM BOWEL BX R/O CELIAC) B GASTRIC FOR HP (GASTRIC BX R/O H PYLORI) C Esophagus Biopsy (GE JUNCTION BX / ESOPHAGITIS) Procedures: PAS - LGRN, HE/6, Gross/Micro L4/3, H PYLORI Age/ Patient Sex Location Account Attending Physician Ashly Mehta 33/F [id number] Hilaria Burgos DO SPEC NUM: [id number] RECD: 08/19/24 STATUS: ARLINE ZAVALA NUM: [id number] GRADY: 08/19/[address]: Hilaria Burgos DO ENTERED: 08/19/[address] [facility] DR: SPEC TYPE: Surgical DEPT: S ENTERED BY: [id number] RECV BY: [id number] ORDERED: PAS - LGRN, HE/6, Gross/Micro L4/3, [...] [id number] Received: 08/19/24 Status: ARLINE Zavala Num: [id number] Spec Type: Surgical Subm Dr: Hilaria Burgos DO Tissues: A Small Intestine - Biopsy/Polyp (SM BOWEL BX R/O CELIAC) B GASTRIC FOR HP (GASTRIC BX R/O H PYLORI) C Esophagus Biopsy (GE JUNCTION BX / ESOPHAGITIS) Procedures: PAS - LGRN, HE/6, Gross/Micro L4/3, H PYLORI Patient: Ashly Mehta [id number] (Continued) Specimen: [id number] Received: 08/19/24 (Continued) Signed (signature on file) Thaddeus Shah Jr., 08/20/24 1417 Specimen: [id number] Received: 08/19/24 Status: ARLINE Joie Num: [id number] Spec Type: Surgical Subm Dr: Hilaria Burgos DO Tissues: A Small Intestine - Biopsy/Polyp (SM BOWEL BX R/O CELIAC) B GASTRIC FOR HP (GASTRIC BX R/O H PYLORI) C Esophagus Biopsy (GE JUNCTION BX / ESOPHAGITIS) Procedures: SHEILA - REAGAN, HE/6, Gross/Micro L4/3, H PYLORI Patient: Ashly Mehta [id number] (Continued) Specimen: [id number] Received: 08/19/24-1121 (Continued) Gross [...] negative with a satisfactory control. CPT Codes 80386 x 3, 00428, 64249 -- (more content not included)... Normal [facility] Urine Cultureon 08-09-2024 Bacteria identified Cx Nom (U) ORGANISM: Escherichia coli (ESBL) (O:ESCCOLESBL) Abiquiu Count >100,000 Aerobic RENATE Charge (NMIC56) -- [...] RESISTANT TO ALL B-LACTAM DRUGS. PERFORMED [place] [id number] PATHOLOGIST IRON INSTALLER RYLAN BENEDICT M.D. Normal [facility] Comment on above: Performed By: #### C UU #### [address] Urine cultureOrdered By: Keesha Marc on 08-09-2024 Bacteria identified Cx Nom (U) Abnormal [facility] Albumin [Mass/volume] in Ser um or Plasmaon 06-29-2024 Albumin [Mass/Vol] Albumin [Mass/volume ] in Serum or Plasma 2.9-4.4 [facility] Basophils Auto (Bld) [#/Vol] on 06-29-2024 Basophils (Bld) [#/Vol] Automated basoph il count 0.0-0.1 [facility] Basophils/100 WBC Auto (Bld) on 06-29-2024 Basophils/100 WBC (Bld) Automated basophil % 0. 2-2.0 [facility] Eosinophils/100 WBC Auto (Bl d)on 06-29-2024 Eosinophils/100 WBC (Bld) Automated eosinophil % 0.9-7.0 [facility] Erythrocyte distribution wid th Auto (RBC) [Ratio]on 06-29-2024 Erythrocyte distribution width (RBC) [Ratio] Erythrocyte distribution width [Ratio] by Automated count High 11.0-15.0 [facility] Hematocrit Auto (Bld) [Volum e fraction]on 06-29-2024 Hematocrit (Bld) [Volume fraction] Hematocrit [Volume Fraction] of Blood by Automated count 36.0-48.0 [facility] Hemoglobin [Mass/volume] in Bloodon 06-29-2024 Hemoglobin (Bld) [Mass/Vol] Hemoglobin [Mass/volume] in Blood 12.0-16.0 [facility] IgA [Mass/volume] in Serum o r Plasmaon 06-29-2024 IgA [Mass/Vol] IgA [Mass/volume] in Serum or Plasma 87-352 [facility] IgG [Mass/volume] in Serum o r Plasmaon 06-29-2024 IgG [Mass/Vol] IgG [Mass/volume] in Serum or Plasma [phone] [facility] IgM [Mass/volume] in Serum o r Plasmaon 06-29-2024 IgM [Mass/Vol] IgM [Mass/volume] in Serum or Plasma 26-217 [facility] Iron binding capacity [Mass/ volume] in Serum or Plasmaon 06-29-2024 Iron binding capacity [Mass/Vol] Iron binding capacity [Mass/volume] in Serum or Plasma 250.0-450. 0 [facility] Iron saturation [Mass Fracti on] in Serum or Plasmaon 06-29-2024 Iron saturation [Mass fraction] Iron saturation [Mass Fraction] in Serum or Plasma [facility] Laboratory - Chemistry and C hemistry - challengeon 06-29-2024 Cobalamin (Vitamin B12) [Mass/Vol] 647 pg/mL [phone] [facility] Comment on above: Performed at: [address] [id number] Director: Cassius Zhong PhD, Phone: [phone] Ferritin [Mass/Vol] 43.0 ng/mL 8.0-252.0 [facility] Iron [Mass/Vol] 50.0 ug/dL 50.0-170.0 [facility] LDH [Catalytic activity/Vol] 202 U/L 81-234 [facility] Laboratory - Hematology and Cell countson 06-29-2024 ESR (Bld) [Velocity] 41 mm/h High <=20 [facility] Immature granulocytes/100 WBC (Bld) 0.3 % 0.0-0.5 [facility] Leukocytes [#/volume] correc carmelita for nucleated erythrocytes in Blood by Automated counon 06-29-2024 WBC corrected for nucl RBC Auto (Bld) [#/Vol] Leukocytes [#/volume] corrected for nucleated erythrocytes in Blood by Automated coun High 4.0-11.0 [facility] Lymphocytes Auto (Bld) [#/Vo l]on 06-29-2024 Lymphocytes (Bld) [#/Vol] Lymphocytes [#/volume] in Blood by Automated count 1.2-3.8 [facility] Lymphocytes/100 WBC Auto (Bl d)on 06-29-2024 Lymphocytes/100 WBC (Bld) Lymphocytes/100 leukocytes in Blood by Automated count 20.5-60.0 [facility] MCH Auto (RBC) [Entitic mass ]on 06-29-2024 MCH (RBC) [Entitic mass] MCH [Entitic mass] by Automated count 26.7-34.0 [facility] MCHC Auto (RBC) [Mass/Vol]on 06-29-2024 MCHC (RBC) [Mass/Vol] MCHC [Mass/volume] by Automated count 29.9-35.2 [facility] MCV Auto (RBC) [Entitic vol] on 06-29-2024 MCV (RBC) [Entitic vol] MCV [Entitic vol ume] by Automated count 81.0-99.0 [facility] Monocytes Auto (Bld) [#/Vol] on 06-29-2024 Monocytes (Bld) [#/Vol] Automated blood monocyte count 0.3-0.8 [facility] Monocytes/100 WBC Auto (Bld) on 06-29-2024 Monocytes/100 WBC (Bld) Automated monocyte % 1. 7-12.0 [facility] Neutrophils Auto (Bld) [#/Vo l]on 06-29-2024 Neutrophils (Bld) [#/Vol] Neutrophils [#/volume] in Blood by Automated count High 1.4-6.5 [facility] Neutrophils/100 WBC Auto (Bl d)on 06-29-2024 Neutrophils/100 WBC (Bld) Automated neutrophil % 43.0-75.0 [facility] No Panel Informationon 06-29 C-Reactive Protein, Quantitative 0.74 mg/dL High <=0.50 [facility] Eosinophils # (Auto) 0.2 10 3/uL 0.0-0.7 [facility] Immature Granulocyte # (Auto) 0.03 10 3/uL 0.00-0.03 [facility] Protein Electrophoresis M-Manpreet Not Observed g/dL Not Observed [facility] Protein Electrophoresis Note Comment . [facility] Comment on above: Protein electrophore sis scan will follow via computer,mail, or local delivery truck driver delivery.Performed at: [address] [id number] Director: Cassius Zhong PhD, Phone: [phone] Platelet mean volume Auto (B ld) [Entitic vol]on 06-29-2024 Platelet mean volume (Bld) [Entitic vol] Platelet mean volume [Entitic volume] in Blood by Automated count 9.5-13.5 [facility] Platelets Auto (Bld) [#/Vol] on 06-29-2024 Platelets (Bld) [#/Vol] Platelets [#/vol ume] in Blood by Automated count 150-450 [facility] Protein [Mass/volume] in Ser um or Plasmaon 06-29-2024 Protein [Mass/Vol] Protein [Mass/volume ] in Serum or Plasma 6.0-8.5 [facility] RBC Auto (Bld) [#/Vol]on RBC (Bld) [#/Vol] Erythrocytes [#/volu me] in Blood by Automated count 4.20-5.40 [facility] Serum globulin measurement ( mass/volume)on 06-29-2024 Globulin (S) [Mass/Vol] Serum globulin measurement (mass/volume) 2.2-3.9 [facility] Serum or plasma albumin/glob ulin mass ratioon 06-29-2024 Albumin/Globulin [Mass ratio] Serum or plasma albumin/globulin mass ratio 0.7-1.7 [facility] Serum or plasma alpha 1 glob ulin measurement by electrophoresis (mass/volume)on 06-29-2024 Alpha 1 globulin Elph [Mass/Vol] Serum or plasma alpha 1 globulin measurement by electrophoresis (mass/volume) 0.0-0.4 [facility] Serum or plasma alpha 2 glob ulin measurement by electrophoresis (mass/volume)on 06-29-2024 Alpha 2 globulin Elph [Mass/Vol] Serum or plasma alpha 2 globulin measurement by electrophoresis (mass/volume) 0.4-1.0 [facility] Serum or plasma beta globuli n measurement by electrophoresis (mass/volume)on 06-29-2024 Beta globulin Elph [Mass/Vol] Serum or plasma beta globulin measurement by electrophoresis (mass/volume) 0.7-1.3 [facility] Serum or plasma gamma globul in measurement by electrophoresis (mass/volume)on 06-29-2024 Gamma globulin Elph [Mass/Vol] Serum or plasma gamma globulin measurement by electrophoresis (mass/volume) 0.4-1.8 [facility] Serum or plasma immunoelectr ophoresis interpretationon 06-29-2024 Interpretation IEP [Interp] Serum or plasma immunoelectrophoresis interpretation . [facility] Comment on above: No monoclonality det ected. Laboratory - Chemistry and C hemistry - challengeon 06-25-2024 Bilirubin Ql (U) 0 [facility] Glucose (U) [Mass/Vol] 0 mg/dL [facility] Ketones Ql (U) 0 [facility] pH (U) 5.0 [pH] [facility] Specific gravity (U) [Rel density] 1.020 [facility] Urobilinogen (U) [Mass/Vol] 0.2 mg/dL [facility] Laboratory - Specimen inform ationon 06-25-2024 Appearance (U) cloudy [facility] Color (U) yellow [facility] Laboratory - Urinalysison Leukocyte esterase Test strip Ql (U) 0 [facility] Nitrite Ql (U) Negative [facility] Protein Ql (U) Trace [facility] No Panel Informationon 06-25 Urine Occult Blood 0 [facility] Urine Cultureon 06-25-2024 Bacteria identified Cx Nom (U) 30,000 colonies/ml mixed bacterial skin contaminants 2 Days PERFORMED BY: [place] [id number] PATHOLOGIST IRON INSTALLER NESHA MAIER M.D. Normal [facility] Comment on above: Performed By: #### C UU #### [address] Urine cultureOrdered By: Keesha Marc on 06-25-2024 Bacteria identified Cx Nom (U) Urine culture [facility] Basophils Auto (Bld) [#/Vol] on 06-15-2024 Basophils (Bld) [#/Vol] 0.1 10 3/uL 0.0-0.1 [facility] Basophils (Bld) [#/Vol] Automated basoph il count 0.0-0.1 [facility] Basophils/100 WBC Auto (Bld) on 06-15-2024 Basophils/100 WBC (Bld) 0.7 % 0.2-2.0 [facility] Basophils/100 WBC (Bld) Automated basophil % 0. 2-2.0 [facility] Chlamydia trachomatis DNA [P resence] in Specimen by SURI with probe detectionOrdered By: Casandra Hassan on 06-15-2024 C. trachomatis DNA SURI+probe Ql (Unsp spec) Negative Negative [facility] C. trachomatis DNA SURI+probe Ql (Unsp spec) Chlamydia trachomatis DNA [Presence] in Specimen by SURI with probe detection Negative [facility] Chlamydia/GC/Trich NAAon Chlamydia Trachomotis, SURI Negative Normal Negative [facility] Comment on above: Performed By: #### C UU #### [facility] [address] [place] [address] #### GCCHLAMTRI #### [facility] , Neisseria Gonorrhoeae, SURI Negative Normal Negative [facility] Comment on above: Performed By: #### C UU #### [address] #### GCCHLAMTRI #### [facility] , Trichomonas SURI Negative Normal Negative [facility] Comment on above: Result Comment: Perf ormed at: =G - [facility] [address] [id number] Customs Agent: Monse Cardona MD, Phone: [phone] PERFORMED BY: [place] [id number] PATHOLOGIST IRON INSTALLER NESHA MAIER M.D. Performed By: #### C UU #### [place] [address] [place] #### GCCHLAMTRI #### [facility] , Eosinophils/100 WBC Auto (Bl d)on 06-15-2024 Eosinophils/100 WBC (Bld) 1.1 % 0.9-7.0 [facility] Eosinophils/100 WBC (Bld) Automated eosinophil % 0.9-7.0 [facility] Erythrocyte distribution wid th Auto (RBC) [Ratio]on 06-15-2024 Erythrocyte distribution width (RBC) [Ratio] 16.4 % High 11.0-15.0 [facility] Erythrocyte distribution width (RBC) [Ratio] Erythrocyte distribution width [Ratio] by Automated count High 11.0-15.0 [facility] Estimated glomerular filtrat ion rate (GFR) non- Americanon 06-15-2024 GFR/1.73 sq M.predicted among non-blacks MDRD (S/P/Bld) [Vol rate/Area] mL/min/{1.73_m2} >=60 mL/min/1.7 3m 2 [facility] GFR/1.73 sq M.predicted among non-blacks MDRD (S/P/Bld) [Vol rate/Area] Estimated glomerular filtration rate (GFR) non- >=60 mL/min/1.7 3m 2 [facility] Globulin Calc (S) [Mass/Vol] on 06-15-2024 Globulin (S) [Mass/Vol] 4.1 g/dL [facility] Globulin (S) [Mass/Vol] Serum globulin measurement by calculation (mass/volume) [facility] HCG ( test) IA.rapi d Ql (U)on 06-15-2024 HCG ( test) Ql (U) Negative NEGATIVE [facility] HCG ( test) Ql (U) Urine human chorionic gonadotropin (hCG) detection by immunoassay NEGATIVE [facility] Hematocrit Auto (Bld) [Volum e fraction]on 06-15-2024 Hematocrit (Bld) [Volume fraction] 42.5 % 36.0-48.0 [facility] Hematocrit (Bld) [Volume fraction] Hematocrit [Volume Fraction] of Blood by Automated count 36.0-48.0 [facility] Hemoglobin [Mass/volume] in Bloodon 06-15-2024 Hemoglobin (Bld) [Mass/Vol] 13.6 g/dL 12.0-16.0 [facility] Hemoglobin (Bld) [Mass/Vol] Hemoglobin [Mass/volume] in Blood 12.0-16.0 [facility] Laboratory - Chemistry and C hemistry - challengeon 06-15-2024 Bilirubin Ql (U) Negative NEGATIVE [facility] Glucose (U) [Mass/Vol] Negative NEGATIVE [facility] Ketones Ql (U) Negative NEGATIVE [facility] pH (U) 6.0 [pH] 5.0-9.0 [facility] Specific gravity (U) [Rel density] 1.025 1.005-1.02 5 [facility] Urobilinogen Qn (U) 0.2 {Tamiko'U}/dL 0.2-1.0 [facility] Albumin [Mass/Vol] 3.6 g/dL 3.4-5.0 [facility] ALP [Catalytic activity/Vol] 76 U/L 46-116 [facility] ALT [Catalytic activity/Vol] 46 U/L 14-59 [facility] AST [Catalytic activity/Vol] 29 U/L 15-37 [facility] Bilirubin [Mass/Vol] 0.4 mg/dL 0.2-1.0 [facility] Calcium [Mass/Vol] 9.5 mg/dL 8.5-10.1 [facility] Chloride [Moles/Vol] 103 mmol/L 98-107 [facility] CO2 [Moles/Vol] 26.4 mmol/L 21.0-32.0 [facility] Creatinine [Mass/Vol] 0.83 mg/dL 0.55-1.02 [facility] GFR/1.73 sq M.predicted MDRD (S/P/Bld) [Vol rate/Area] mL/min/{1.73_m2} >=60 mL/min/1.7 3m 2 [facility] Glucose [Mass/Vol] 102 mg/dL 74-106 [facility] Lactate [Moles/Vol] 1.9 mmol/L 0.4-2.0 [facility] Lipase [Catalytic activity/Vol] 32.0 U/L 16.0-77.0 [facility] Potassium [Moles/Vol] 3.9 mmol/L 3.5-5.1 [facility] Protein [Mass/Vol] 7.7 g/dL 6.4-8.2 [facility] Sodium [Moles/Vol] 139 mmol/L 136-145 [facility] Urea nitrogen [Mass/Vol] 9.0 mg/dL 7.0-18.0 [facility] Urea nitrogen/Creatinine [Mass ratio] 10.8 mg/mg [facility] Laboratory - Hematology and Cell countson 06-15-2024 Immature granulocytes/100 WBC (Bld) 0.2 % 0.0-0.5 [facility] Laboratory - Microbiology an d Antimicrobial susceptibilityOrdered By: Casandra Hassan on 06-15-2024 Bacteria identified Cx Nom (U) Escherichia coli (ESBL) Abnormal [facility] Laboratory - Specimen inform ationon 06-15-2024 Appearance (U) CLEAR CLEAR [facility] Color (U) LT. YELLOW YELLOW [facility] Laboratory - Urinalysison Leukocyte esterase Test strip Ql (U) TRACE Abnormal NEGATIVE [facility] Mucus Ql (Urine sed) TRACE Abnormal NONE SEEN [facility] Nitrite Ql (U) Positive Abnormal NEGATIVE [facility] Protein Ql (U) >=300 mg/dL Abnormal NEG/TRACE [facility] Leukocytes [#/volume] correc carmelita for nucleated erythrocytes in Blood by Automated counon 06-15-2024 WBC corrected for nucl RBC Auto (Bld) [#/Vol] 12.7 10 3/uL High 4.0-11.0 [facility] WBC corrected for nucl RBC Auto (Bld) [#/Vol] Leukocytes [#/volume] corrected for nucleated erythrocytes in Blood by Automated coun High 4.0-11.0 [facility] Lymphocytes Auto (Bld) [#/Vo l]on 06-15-2024 Lymphocytes (Bld) [#/Vol] 2.9 10 3/uL 1.2-3.8 [facility] Lymphocytes (Bld) [#/Vol] Lymphocytes [#/volume] in Blood by Automated count 1.2-3.8 [facility] Lymphocytes/100 WBC Auto (Bl d)on 06-15-2024 Lymphocytes/100 WBC (Bld) 23.0 % 20.5-60.0 [facility] Lymphocytes/100 WBC (Bld) Lymphocytes/100 leukocytes in Blood by Automated count 20.5-60.0 [facility] MCH Auto (RBC) [Entitic mass ]on 06-15-2024 MCH (RBC) [Entitic mass] 26.7 pg 26.7-34.0 [facility] MCH (RBC) [Entitic mass] MCH [Entitic mass] by Automated count 26.7-34.0 [facility] MCHC Auto (RBC) [Mass/Vol]on 06-15-2024 MCHC (RBC) [Mass/Vol] 32.0 g/dL 29.9-35.2 [facility] MCHC (RBC) [Mass/Vol] MCHC [Mass/volume] by Automated count 29.9-35.2 [facility] MCV Auto (RBC) [Entitic vol] on 06-15-2024 MCV (RBC) [Entitic vol] 83.5 fL 81.0-99.0 [facility] MCV (RBC) [Entitic vol] MCV [Entitic vol ume] by Automated count 81.0-99.0 [facility] Monocytes Auto (Bld) [#/Vol] on 06-15-2024 Monocytes (Bld) [#/Vol] 0.6 10 3/uL 0.3-0.8 [facility] Monocytes (Bld) [#/Vol] Automated blood monocyte count 0.3-0.8 [facility] Monocytes/100 WBC Auto (Bld) on 06-15-2024 Monocytes/100 WBC (Bld) 4.9 % 1.7-12.0 [facility] Monocytes/100 WBC (Bld) Automated monocyte % 1. 7-12.0 [facility] Neisseria gonorrhoeae DNA [P resence] in Specimen by SURI with probe detectionOrdered By: Casandra Hassan on 06-15-2024 N. gonorrhoeae DNA SURI+probe Ql (Unsp spec) Negative Negative [facility] N. gonorrhoeae DNA SURI+probe Ql (Unsp spec) Neisseria gonorrhoeae DNA [Presence] in Specimen by SURI with probe detection Negative [facility] Neutrophils Auto (Bld) [#/Vo l]on 06-15-2024 Neutrophils (Bld) [#/Vol] 8.9 10 3/uL High 1.4-6.5 [facility] Neutrophils (Bld) [#/Vol] Neutrophils [#/volume] in Blood by Automated count High 1.4-6.5 [facility] Neutrophils/100 WBC Auto (Bl d)on 06-15-2024 Neutrophils/100 WBC (Bld) 70.1 % 43.0-75.0 [facility] Neutrophils/100 WBC (Bld) Automated neutrophil % 43.0-75.0 [facility] No Panel Informationon 06-15 Miscellaneous Test Comment See comment [facility] Comment on above: Specimen Source: UCC - Urine,Clean Catch - Urine CC - 200.100 Urine Bacteria SMALL #/HPF Abnormal NONE SEEN [facility] Urine Culture Reflexed YES [facility] Urine Culture Result 1 \R\ Urine Culture , Routine\R\ Organism: Gram negative jus : [facility] Urine Microscopic Review YES [facility] Urine Occult Blood MODERATE Abnormal NEGATIVE [facility] Urine Other Casts NONE SEEN #/LPF NONE SEEN [facility] Urine Other Crystals None Seen #/HPF None Seen [facility] Urine RBC 10-20 #/HPF Abnormal 0-2 [facility] Urine Squamous Epithelial Cells FEW #/LPF Abnormal NONE/RARE [facility] Urine WBC 20-50 #/HPF Abnormal NONE SEEN [facility] Eosinophils # (Auto) 0.1 10 3/uL 0.0-0.7 [facility] Immature Granulocyte # (Auto) 0.03 10 3/uL 0.00-0.03 [facility] Platelet mean volume Auto (B ld) [Entitic vol]on 06-15-2024 Platelet mean volume (Bld) [Entitic vol] 10.0 fL 9.5-13.5 [facility] Platelet mean volume (Bld) [Entitic vol] Platelet mean volume [Entitic volume] in Blood by Automated count 9.5-13.5 [facility] Platelets Auto (Bld) [#/Vol] on 06-15-2024 Platelets (Bld) [#/Vol] 308 10 3/uL 150-450 [facility] Platelets (Bld) [#/Vol] Platelets [#/vol ume] in Blood by Automated count 150-450 [facility] RBC Auto (Bld) [#/Vol]on RBC (Bld) [#/Vol] 5.09 10 6/uL 4.20-5.40 [facility] RBC (Bld) [#/Vol] Erythrocytes [#/volu me] in Blood by Automated count 4.20-5.40 [facility] Serum or plasma albumin/glob ulin mass ratioon 06-15-2024 Albumin/Globulin [Mass ratio] 0.9 {ratio} [facility] Albumin/Globulin [Mass ratio] Serum or plasma albumin/globulin mass ratio [facility] Serum or plasma anion gap de terminationon 06-15-2024 Anion gap [Moles/Vol] 13.5 mmol[facility] Anion gap [Moles/Vol] Serum or plasma an ion gap determination [facility] Trichomonas vaginalis DNA [P resence] in Specimen by SURI with probe detectionOrdered By: Casandra Hassan on 06-15-2024 T. vaginalis DNA SURI+probe Ql (Unsp spec) Negative Negative [facility] Comment on above: Performed at: =G - L [employer] [id number] Director: Monse Cardona MD, Phone: [phone] T. vaginalis DNA SURI+probe Ql (Unsp spec) Trichomonas vaginalis DNA [Presence] in Specimen by SURI with probe detection Negative [facility] Comment on above: Performed at: =G - L [employer] [id number] Director: Monse Cardona MD, Phone: [phone] Urine Cultureon 06-15-2024 Bacteria identified Cx Nom (U) ORGANISM: Escherichia coli (ESBL) (O:ESCCOLESBL) Abiquiu Count >100,000 Aerobic RENATE Charge ([id number]) -- [...] RESISTANT TO ALL B-LACTAM DRUGS. PERFORMED BY: [place] [id number] PATHOLOGIST IRON INSTALLER NESHA MAIER M.D. Normal [facility] Comment on above: Performed By: #### C UU #### [place] [address] [place] #### GCCHLAMTRI #### [facility] , Urine cultureOrdered By: Eulalio Hassan on 06-15-2024 Bacteria identified Cx Nom (U) Abnormal [facility] Iron binding capacity [Mass/ volume] in Serum or Plasmaon 06-07-2024 Iron binding capacity [Mass/Vol] 411.0 ug/dL 250.0-450. 0 [facility] Iron binding capacity [Mass/Vol] Iron binding capacity [Mass/volume] in Serum or Plasma 250.0-450. 0 [facility] Iron saturation [Mass Fracti on] in Serum or Plasmaon 06-07-2024 Iron saturation [Mass fraction] 13.4 % [facility] Iron saturation [Mass fraction] Iron saturation [Mass Fraction] in Serum or Plasma [facility] Laboratory - Chemistry and C hemistry - challengeon 06-07-2024 Iron [Mass/Vol] 55.0 ug/dL 50.0-170.0 [facility] Iron binding capacity [Mass/ volume] in Serum or Plasmaon 04-21-2024 Iron binding capacity [Mass/Vol] 495.0 ug/dL High 250.0-450. 0 [facility] Iron binding capacity [Mass/Vol] Iron binding capacity [Mass/volume] in Serum or Plasma High 250.0-450. 0 [facility] Iron saturation [Mass Fracti on] in Serum or Plasmaon 04-21-2024 Iron saturation [Mass fraction] 15.4 % [facility] Iron saturation [Mass fraction] Iron saturation [Mass Fraction] in Serum or Plasma [facility] Laboratory - Chemistry and C hemistry - challengeon 04-21-2024 Cobalamin (Vitamin B12) [Mass/Vol] 815 pg/mL [id number] [facility] Comment on above: Performed at: [place] [id number] Director: Cassius Zhong PhD, Phone: [phone] Iron [Mass/Vol] 76.0 ug/dL 50.0-170.0 [facility] TSH Qn 2.211 m[IU]/L 0.358-3.74 0 [facility] Basophils Auto (Bld) [#/Vol] on 04-12-2024 Basophils (Bld) [#/Vol] 0.1 10 3/uL 0.0-0.1 [facility] Basophils (Bld) [#/Vol] Automated basoph il count 0.0-0.1 [facility] Basophils/100 WBC Auto (Bld) on 04-12-2024 Basophils/100 WBC (Bld) 0.6 % 0.2-2.0 [facility] Basophils/100 WBC (Bld) Automated basophil % 0. 2-2.0 [facility] Buprenorphine [Presence] in Urineon 04-12-2024 Buprenorphine Ql (U) Negative NEGATIVE [facility] Comment on above: DRUG CLASS TEST SYST EM CUT-OFF CONCENTRATIONS ARE ASFOLLOWS:AMP (Amphetamine): 500 ng/mLBAR (Barbiturates): 200 ng/mLBZO (Benzodiazepines): 150 ng/mLBUP (Buprenorphine): 10 ng/mLCOC (Cocaine): 150 ng/mLmAMP (Methamphetamine): 500 ng/mLMTD (Methadone): 200 ng/mLOPI (Opiates): 100 ng/mLOXY (Oxycodone): 100 ng/mLPCP (Phencyclidine): 25 ng/mLTHC (Cannabinoids): 50 ng/mLTCA (Trycyclic Antidepressants): 300 ng/mL Buprenorphine Ql (U) Buprenorphine [Presence] in Urine NEGATIVE [facility] Comment on above: DRUG CLASS TEST [...] WBC (Bld) 1.0 % 0.9-7.0 [facility] Eosinophils/100 WBC (Bld) Automated eosinophil % 0.9-7.0 [facility] Erythrocyte distribution wid th Auto (RBC) [Ratio]on 04-12-2024 Erythrocyte distribution width (RBC) [Ratio] 17.4 % High 11.0-15.0 [facility] Erythrocyte distribution width (RBC) [Ratio] Erythrocyte distribution width [Ratio] by Automated count High 11.0-15.0 [facility] Estimated glomerular filtrat ion rate (GFR) non- Americanon 04-12-2024 GFR/1.73 sq M.predicted among non-blacks MDRD (S/P/Bld) [Vol rate/Area] mL/min/{1.73_m2} >=60 [facility] GFR/1.73 sq M.predicted among non-blacks MDRD (S/P/Bld) [Vol rate/Area] Estimated glomerular filtration rate (GFR) non- >=60 [facility] Globulin Calc (S) [Mass/Vol] on 04-12-2024 Globulin (S) [Mass/Vol] 4.1 g/dL [facility] Globulin (S) [Mass/Vol] Serum globulin measurement by calculation (mass/volume) [facility] HCG ( test) IAsurjiti d Ql (U)on 04-12-2024 HCG ( test) Ql (U) Negative NEGATIVE [facility] HCG ( test) Ql (U) Urine human chorionic gonadotropin (hCG) detection by immunoassay NEGATIVE [facility] Hematocrit Auto (Bld) [Volum e fraction]on 04-12-2024 Hematocrit (Bld) [Volume fraction] 37.9 % 36.0-48.0 [facility] Hematocrit (Bld) [Volume fraction] Hematocrit [Volume Fraction] of Blood by Automated count 36.0-48.0 [facility] Hemoglobin [Mass/volume] in Bloodon 04-12-2024 Hemoglobin (Bld) [Mass/Vol] 11.6 g/dL Low 12.0-16.0 [facility] Hemoglobin (Bld) [Mass/Vol] Hemoglobin [Mass/volume] in Blood Low 12.0-16.0 [facility] Laboratory - Chemistry and C hemistry - challengeon 04-12-2024 Albumin [Mass/Vol] 3.3 g/dL Low 3.4-5.0 [facility] ALP [Catalytic activity/Vol] 75 U/L 46-116 [facility] ALT [Catalytic activity/Vol] 36 U/L 14-59 [facility] AST [Catalytic activity/Vol] 19 U/L 15-37 [facility] Bilirubin [Mass/Vol] 0.3 mg/dL 0.2-1.0 [facility] Calcium [Mass/Vol] 8.6 mg/dL 8.5-10.1 [facility] Chloride [Moles/Vol] 101 mmol/L 98-107 [facility] CO2 [Moles/Vol] 28.7 mmol/L 21.0-32.0 [facility] Creatinine [Mass/Vol] 0.70 mg/dL 0.55-1.02 [facility] GFR/1.73 sq M.predicted MDRD (S/P/Bld) [Vol rate/Area] mL/min/{1.73_m2} >=60 [facility] Glucose [Mass/Vol] 103 mg/dL 74-106 [facility] Potassium [Moles/Vol] 3.7 mmol/L 3.5-5.1 [facility] Protein [Mass/Vol] 7.4 g/dL 6.4-8.2 [facility] Sodium [Moles/Vol] 136 mmol/L 136-145 [facility] Urea nitrogen [Mass/Vol] 10.0 mg/dL 7.0-18.0 [facility] Urea nitrogen/Creatinine [Mass ratio] 14.3 mg/mg [facility] Bilirubin Ql (U) Negative NEGATIVE [facility] Glucose (U) [Mass/Vol] Negative NEGATIVE [facility] Ketones Ql (U) Negative NEGATIVE [facility] pH (U) 6.0 [pH] 5.0-9.0 [facility] Specific gravity (U) [Rel density] >=1.030 Abnormal 1.005-1.02 5 [facility] Urobilinogen Qn (U) 0.2 {Tamiko'U}/dL 0.2-1.0 [facility] Laboratory - Drug toxicology on 04-12-2024 Amphetamines Ql (U) Negative NEGATIVE [facility] Benzodiazepines Ql (U) Negative NEGATIVE [facility] Cocaine Ql (U) Negative NEGATIVE [facility] Opiates Ql (U) Negative NEGATIVE [facility] Phencyclidine Ql (U) Negative NEGATIVE [facility] Laboratory - Hematology and Cell countson 04-12-2024 Immature granulocytes/100 WBC (Bld) 0.3 % 0.0-0.5 [facility] Laboratory - Specimen inform ationon 04-12-2024 Appearance (U) CLEAR CLEAR [facility] Color (U) YELLOW YELLOW [facility] Laboratory - Urinalysison Leukocyte esterase Test strip Ql (U) Negative NEGATIVE [facility] Mucus Ql (Urine sed) TRACE Abnormal NONE SEEN [facility] Nitrite Ql (U) Negative NEGATIVE [facility] Protein Ql (U) Negative NEG/TRACE [facility] Leukocytes [#/volume] correc carmelita for nucleated erythrocytes in Blood by Automated counon 04-12-2024 WBC corrected for nucl RBC Auto (Bld) [#/Vol] 9.9 10 3/uL 4.0-11.0 [facility] WBC corrected for nucl RBC Auto (Bld) [#/Vol] Leukocytes [#/volume] corrected for nucleated erythrocytes in Blood by Automated coun 4.0-11.0 [facility] Lymphocytes Auto (Bld) [#/Vo l]on 04-12-2024 Lymphocytes (Bld) [#/Vol] 3.5 10 3/uL 1.2-3.8 [facility] Lymphocytes (Bld) [#/Vol] Lymphocytes [#/volume] in Blood by Automated count 1.2-3.8 [facility] Lymphocytes/100 WBC Auto (Bl d)on 04-12-2024 Lymphocytes/100 WBC (Bld) 35.5 % 20.5-60.0 [facility] Lymphocytes/100 WBC (Bld) Lymphocytes/100 leukocytes in Blood by Automated count 20.5-60.0 [facility] MCH Auto (RBC) [Entitic mass ]on 04-12-2024 MCH (RBC) [Entitic mass] 24.5 pg Low 26.7-34.0 [facility] MCH (RBC) [Entitic mass] MCH [Entitic mass] by Automated count Low 26.7-34.0 [facility] MCHC Auto (RBC) [Mass/Vol]on 04-12-2024 MCHC (RBC) [Mass/Vol] 30.6 g/dL 29.9-35.2 [facility] MCHC (RBC) [Mass/Vol] MCHC [Mass/volume] by Automated count 29.9-35.2 [facility] MCV Auto (RBC) [Entitic vol] on 04-12-2024 MCV (RBC) [Entitic vol] 80.1 fL Low 81.0-99.0 [facility] MCV (RBC) [Entitic vol] MCV [Entitic vol ume] by Automated count Low 81.0-99.0 [facility] Methadone [Presence] in Urin e by Screen methodon 04-12-2024 Methadone Screen Ql (U) Negative NEGATIVE [facility] Methadone Screen Ql (U) Methadone [Prese nce] in Urine by Screen method NEGATIVE [facility] Monocytes Auto (Bld) [#/Vol] on 04-12-2024 Monocytes (Bld) [#/Vol] 0.5 10 3/uL 0.3-0.8 [facility] Monocytes (Bld) [#/Vol] Automated blood monocyte count 0.3-0.8 [facility] Monocytes/100 WBC Auto (Bld) on 04-12-2024 Monocytes/100 WBC (Bld) 4.7 % 1.7-12.0 [facility] Monocytes/100 WBC (Bld) Automated monocyte % 1. 7-12.0 [facility] Neutrophils Auto (Bld) [#/Vo l]on 04-12-2024 Neutrophils (Bld) [#/Vol] 5.7 10 3/uL 1.4-6.5 [facility] Neutrophils (Bld) [#/Vol] Neutrophils [#/volume] in Blood by Automated count 1.4-6.5 [facility] Neutrophils/100 WBC Auto (Bl d)on 04-12-2024 Neutrophils/100 WBC (Bld) 57.9 % 43.0-75.0 [facility] Neutrophils/100 WBC (Bld) Automated neutrophil % 43.0-75.0 [facility] No Panel Informationon 04-12 Acetaminophen Level <2.0 ug/mL Low 10.0-30.0 [facility] Eosinophils # (Auto) 0.1 10 3/uL 0.0-0.7 [facility] Ethyl Alcohol Level <3 mg/dL [facility] Comment on above: NOTE: 80 mg/dl is th e legal limit for a blood alcohol level Immature Granulocyte # (Auto) 0.03 10 3/uL 0.00-0.03 [facility] Salicylates Level <2.8 mg/dL <=19.9 [facility] Urine Bacteria SMALL #/HPF Abnormal NONE SEEN [facility] Urine Barbiturates Screen Negative NEGATIVE [facility] Urine Culture Reflexed YES [facility] Urine Marijuana (THC) Screen Negative NEGATIVE [facility] Urine Methamphetamines Screen Negative NEGATIVE [facility] Urine Occult Blood Negative NEGATIVE [facility] Urine Other Casts NONE SEEN #/LPF NONE SEEN [facility] Urine Other Crystals None Seen #/HPF None Seen [facility] Urine RBC 0-2 #/HPF 0-2 [facility] Urine Squamous Epithelial Cells FEW #/LPF Abnormal NONE/RARE [facility] Urine Transitional Epithelial Cells RARE #/LPF Abnormal NONE SEEN [facility] Urine WBC 2-5 #/HPF Abnormal NONE SEEN [facility] Platelet mean volume Auto (B ld) [Entitic vol]on 04-12-2024 Platelet mean volume (Bld) [Entitic vol] 10.2 fL 9.5-13.5 [facility] Platelet mean volume (Bld) [Entitic vol] Platelet mean volume [Entitic volume] in Blood by Automated count 9.5-13.5 [facility] Platelets Auto (Bld) [#/Vol] on 04-12-2024 Platelets (Bld) [#/Vol] 299 10 3/uL 150-450 [facility] Platelets (Bld) [#/Vol] Platelets [#/vol ume] in Blood by Automated count 150-450 [facility] RBC Auto (Bld) [#/Vol]on RBC (Bld) [#/Vol] 4.73 10 6/uL 4.20-5.40 [facility] RBC (Bld) [#/Vol] Erythrocytes [#/volu me] in Blood by Automated count 4.20-5.40 [facility] Serum or plasma albumin/glob ulin mass ratioon 04-12-2024 Albumin/Globulin [Mass ratio] 0.8 {ratio} [facility] Albumin/Globulin [Mass ratio] Serum or plasma albumin/globulin mass ratio [facility] Serum or plasma anion gap de terminationon 04-12-2024 Anion gap [Moles/Vol] 10.0 mmol/L [facility] Anion gap [Moles/Vol] Serum or plasma an ion gap determination [facility] Urine tricyclic antidepressa nt measurementon 04-12-2024 Tricyclic antidepressants (U) [Mass/Vol] Negative NEGATIVE [facility] Tricyclic antidepressants (U) [Mass/Vol] Urine tricyclic antidepressant measurement NEGATIVE [facility] oxyCODONE+oxyMORphone [Prese nce] in Urine by Screen methodon 04-12-2024 oxyCODONE+oxyMORphone Screen Ql (U) Negative NEGATIVE [facility] oxyCODONE+oxyMORphone Screen Ql (U) oxyCODONE+oxyMORphone [Presence] in Urine by Screen method NEGATIVE [facility] Basophils Auto (Bld) [#/Vol] on 11-03-2023 Basophils (Bld) [#/Vol] 0.0 10 3/uL 0.0-0.1 [facility] Basophils/100 WBC Auto (Bld) on 11-03-2023 Basophils/100 WBC (Bld) 0.5 % 0.2-2.0 [facility] Eosinophils/100 WBC Auto (Bl d)on 11-03-2023 Eosinophils/100 WBC (Bld) 1.4 % 0.9-7.0 [facility] Erythrocyte distribution wid th Auto (RBC) [Ratio]on 11-03-2023 Erythrocyte distribution width (RBC) [Ratio] 16.3 % 11.0-15.0 [facility] Estimated glomerular filtrat ion rate (GFR) non- Americanon 11-03-2023 GFR/1.73 sq M.predicted among non-blacks MDRD (S/P/Bld) [Vol rate/Area] mL/min/{1.73_m2} >=60 [facility] Globulin Calc (S) [Mass/Vol] on 11-03-2023 Globulin (S) [Mass/Vol] 4.0 g/dL [facility] Hematocrit Auto (Bld) [Volum e fraction]on 11-03-2023 Hematocrit (Bld) [Volume fraction] 26.1 % 36.0-48.0 [facility] Hemoglobin [Mass/volume] in Bloodon 11-03-2023 Hemoglobin (Bld) [Mass/Vol] 7.8 g/dL 12.0-16.0 [facility] Human papilloma virus 16+18+ 31+33+35+39+45+51+52+56+58+59+66+68 DNA [Presence] in Elina 11-03-2023 HPV 16+18+31+33+35+39+45+51 +52+56+58+59+66+68 DNA Probe+sig amp Ql (Cvx) Negative Negative [facility] Comment on above: This nucleic acid am plification test detects fourteen high-risk HPV types (16,18,31,33,35,39,45,51,52,56,58,59,66,68)without differentiation.Performed at: = - [facility] [id number] Director: Monse Cardona MD, Phone: [phone] at: [facility] [id number] Director: Monse Cardona MD, Phone: [phone] Iron binding capacity [Mass/ volume] in Serum or Plasmaon 11-03-2023 Iron binding capacity [Mass/Vol] 512.0 ug/dL 250.0-450. 0 [facility] Iron saturation [Mass Fracti on] in Serum or Plasmaon 11-03-2023 Iron saturation [Mass fraction] 2.7 % [facility] Laboratory - Chemistry and C hemistry - challengeon 11-03-2023 Albumin [Mass/Vol] 3.1 g/dL 3.4-5.0 [facility] ALP [Catalytic activity/Vol] 63 U/L 46-116 [facility] ALT [Catalytic activity/Vol] 29 U/L 14-59 [facility] AST [Catalytic activity/Vol] 18 U/L 15-37 [facility] Bilirubin [Mass/Vol] 0.2 mg/dL 0.2-1.0 [facility] Calcium [Mass/Vol] 8.7 mg/dL 8.5-10.1 [facility] Chloride [Moles/Vol] 102 mmol/L 98-107 [facility] CO2 [Moles/Vol] 27.6 mmol/L 21.0-32.0 [facility] Creatinine [Mass/Vol] 0.70 mg/dL 0.55-1.02 [facility] Ferritin [Mass/Vol] 6.0 ng/mL 8.0-252.0 [facility] GFR/1.73 sq M.predicted MDRD (S/P/Bld) [Vol rate/Area] mL/min/{1.73_m2} >=60 [facility] Glucose [Mass/Vol] 103 mg/dL 74-106 [facility] Iron [Mass/Vol] 14.0 ug/dL 50.0-170.0 [facility] Potassium [Moles/Vol] 3.8 mmol/L 3.5-5.1 [facility] Protein [Mass/Vol] 7.1 g/dL 6.4-8.2 [facility] Sodium [Moles/Vol] 139 mmol/L 136-145 [facility] Urea nitrogen [Mass/Vol] 11.0 mg/dL 7.0-18.0 [facility] Urea nitrogen/Creatinine [Mass ratio] 15.7 mg/mg [facility] Laboratory - Hematology and Cell countson 11-03-2023 Immature granulocytes/100 WBC (Bld) 0.4 % 0.0-0.5 [facility] Leukocytes [#/volume] correc carmelita for nucleated erythrocytes in Blood by Automated counon 11-03-2023 WBC corrected for nucl RBC Auto (Bld) [#/Vol] 7.4 10 3/uL 4.0-11.0 [facility] Lymphocytes Auto (Bld) [#/Vo l]on 11-03-2023 Lymphocytes (Bld) [#/Vol] 2.5 10 3/uL 1.2-3.8 [facility] Lymphocytes/100 WBC Auto (Bl d)on 11-03-2023 Lymphocytes/100 WBC (Bld) 33.6 % 20.5-60.0 [facility] MCH Auto (RBC) [Entitic mass ]on 11-03-2023 MCH (RBC) [Entitic mass] 24.8 pg 26.7-34.0 [facility] MCHC Auto (RBC) [Mass/Vol]on 11-03-2023 MCHC (RBC) [Mass/Vol] 29.9 g/dL 29.9-35.2 [facility] MCV Auto (RBC) [Entitic vol] on 11-03-2023 MCV (RBC) [Entitic vol] 82.9 fL 81.0-99.0 [facility] Monocytes Auto (Bld) [#/Vol] on 11-03-2023 Monocytes (Bld) [#/Vol] 0.4 10 3/uL 0.3-0.8 [facility] Monocytes/100 WBC Auto (Bld) on 11-03-2023 Monocytes/100 WBC (Bld) 5.6 % 1.7-12.0 [facility] Neutrophils Auto (Bld) [#/Vo l]on 11-03-2023 Neutrophils (Bld) [#/Vol] 4.3 10 3/uL 1.4-6.5 [facility] Neutrophils/100 WBC Auto (Bl d)on 11-03-2023 Neutrophils/100 WBC (Bld) 58.5 % 43.0-75.0 [facility] No Panel Informationon 11-02 Eosinophils # (Auto) 0.1 10 3/uL 0.0-0.7 [facility] Immature Granulocyte # (Auto) 0.03 10 3/uL 0.00-0.03 [facility] HPV High Risk Other Comment Note . [facility] Comment on above: TESTS RESULT FLAG UN ITS REF RANGE LAB -DIAGNOSIS: 02 NEGATIVE FOR INTRAEPITHELIAL LESION OR MALIGNANCY.Specimen adequacy: 02 Satisfactory for evaluation. Endocervical and/or squamous metaplastic cells (endocervical component) are present.Performed by: Mikhail Escalante Auxiliary Engineer (ASCP). 02Note: Note 02 The Pap smear [...] High <-Panic Low,>-Panic High,A-Abnormal,AA-Critical Abnormal ------Performed at:[address] [id number] Monse Cardona MD, Reference Lab Test Patient Age Note . [facility] Comment on above: TESTS RESULT FLAG UN ITS REF RANGE LAB - Clinician Provided Cytology Information Source.............Cervix;Endocervix No. of containers..01 ThinPrep VialAge Jean-Pierre YOON Elise... 31 FLAG LEGEND: L-Low Normal,H-High Normal,LL-Alert Low,HH-Alert High <-Panic Low,>-Panic High,A-Abnormal,AA-Critical Abnormal ------Performed at:01 =G [facility] [place] [address] Monse Cardona MD, Platelet mean volume Auto (B ld) [Entitic vol]on 11-03-2023 Platelet mean volume (Bld) [Entitic vol] 9.6 fL 9.5-13.5 [facility] Platelets Auto (Bld) [#/Vol] on 11-03-2023 Platelets (Bld) [#/Vol] 323 10 3/uL 150-450 [facility] RBC Auto (Bld) [#/Vol]on RBC (Bld) [#/Vol] 3.15 10 6/uL 4.20-5.40 [facility] Serum or plasma albumin/glob ulin mass ratioon 11-03-2023 Albumin/Globulin [Mass ratio] 0.8 {ratio} [facility] Serum or plasma anion gap de terminationon 11-03-2023 Anion gap [Moles/Vol] 13.2 mmol/L [facility] Basophils Auto (Bld) [#/Vol] on 10-30-2023 Basophils (Bld) [#/Vol] 0.0 10 3/uL 0.0-0.1 [facility] Basophils/100 WBC Auto (Bld) on 10-30-2023 Basophils/100 WBC (Bld) 0.6 % 0.2-2.0 [facility] Eosinophils/100 WBC Auto (Bl d)on 10-30-2023 Eosinophils/100 WBC (Bld) 1.2 % 0.9-7.0 [facility] Erythrocyte distribution wid th Auto (RBC) [Ratio]on 10-30-2023 Erythrocyte distribution width (RBC) [Ratio] 16.6 % 11.0-15.0 [facility] Estimated glomerular filtrat ion rate (GFR) non- Americanon 10-30-2023 GFR/1.73 sq M.predicted among non-blacks MDRD (S/P/Bld) [Vol rate/Area] mL/min/{1.73_m2} >=60 [facility] HCG ( test) Bello d Ql (U)on 10-30-2023 HCG ( test) Ql (U) Negative NEGATIVE [facility] Hematocrit Auto (Bld) [Volum e fraction]on 10-30-2023 Hematocrit (Bld) [Volume fraction] 26.6 % 36.0-48.0 [facility] Hemoglobin [Mass/volume] in Bloodon 10-30-2023 Hemoglobin (Bld) [Mass/Vol] 7.9 g/dL 12.0-16.0 [facility] Laboratory - Chemistry and C hemistry - challengeon 10-30-2023 Calcium [Mass/Vol] 8.5 mg/dL 8.5-10.1 [facility] Chloride [Moles/Vol] 101 mmol/L 98-107 [facility] CO2 [Moles/Vol] 28.8 mmol/L 21.0-32.0 [facility] Creatinine [Mass/Vol] 0.62 mg/dL 0.55-1.02 [facility] GFR/1.73 sq M.predicted MDRD (S/P/Bld) [Vol rate/Area] mL/min/{1.73_m2} >=60 [facility] Glucose [Mass/Vol] 104 mg/dL 74-106 [facility] Potassium [Moles/Vol] 4.0 mmol/L 3.5-5.1 [facility] Sodium [Moles/Vol] 137 mmol/L 136-145 [facility] Urea nitrogen [Mass/Vol] 8.0 mg/dL 7.0-18.0 [facility] Urea nitrogen/Creatinine [Mass ratio] 12.9 mg/mg [facility] Laboratory - Hematology and Cell countson 10-30-2023 Immature granulocytes/100 WBC (Bld) 0.4 % 0.0-0.5 [facility] Leukocytes [#/volume] correc carmelita for nucleated erythrocytes in Blood by Automated counon 10-30-2023 WBC corrected for nucl RBC Auto (Bld) [#/Vol] 7.3 10 3/uL 4.0-11.0 [facility] Lymphocytes Auto (Bld) [#/Vo l]on 10-30-2023 Lymphocytes (Bld) [#/Vol] 2.2 10 3/uL 1.2-3.8 [facility] Lymphocytes/100 WBC Auto (Bl d)on 10-30-2023 Lymphocytes/100 WBC (Bld) 30.2 % 20.5-60.0 [facility] MCH Auto (RBC) [Entitic mass ]on 10-30-2023 MCH (RBC) [Entitic mass] 25.0 pg 26.7-34.0 [facility] MCHC Auto (RBC) [Mass/Vol]on 10-30-2023 MCHC (RBC) [Mass/Vol] 29.7 g/dL 29.9-35.2 [facility] MCV Auto (RBC) [Entitic vol] on 10-30-2023 MCV (RBC) [Entitic vol] 84.2 fL 81.0-99.0 [facility] Monocytes Auto (Bld) [#/Vol] on 10-30-2023 Monocytes (Bld) [#/Vol] 0.3 10 3/uL 0.3-0.8 [facility] Monocytes/100 WBC Auto (Bld) on 10-30-2023 Monocytes/100 WBC (Bld) 3.7 % 1.7-12.0 [facility] Neutrophils Auto (Bld) [#/Vo l]on 10-30-2023 Neutrophils (Bld) [#/Vol] 4.6 10 3/uL 1.4-6.5 [facility] Neutrophils/100 WBC Auto (Bl d)on 10-30-2023 Neutrophils/100 WBC (Bld) 63.9 % 43.0-75.0 [facility] No Panel Informationon 10-29 Eosinophils # (Auto) 0.1 10 3/uL 0.0-0.7 [facility] Immature Granulocyte # (Auto) 0.03 10 3/uL 0.00-0.03 [facility] Platelet mean volume Auto (B ld) [Entitic vol]on 10-30-2023 Platelet mean volume (Bld) [Entitic vol] 9.4 fL 9.5-13.5 [facility] Platelets Auto (Bld) [#/Vol] on 10-30-2023 Platelets (Bld) [#/Vol] 264 10 3/uL 150-450 [facility] RBC Auto (Bld) [#/Vol]on RBC (Bld) [#/Vol] 3.16 10 6/uL 4.20-5.40 [facility] Serum or plasma anion gap de terminationon 10-30-2023 Anion gap [Moles/Vol] 11.2 mmol/L [facility] HCG ( test) IA.rapi d Ql (U)on 10-06-2023 HCG ( test) Ql (U) Negative NEGATIVE [facility] COVID + FLU Quick Testingon 07-07-2023 SARS-CoV-2 (COVID-19) RNA SURI+probe Ql (Unsp spec) Negative [facility] [employer] Other COVID + FLU Quick Testing Negative Lookback Other Alanine aminotransferase [En zymatic activity/volume] in Serum or PlasmaOrdered By: Celio Mullins on 07-03-2023 ALT [Catalytic activity/Vol] 22 U/L 7-52 [facility] Albumin [Mass/volume] in Ser um or Plasma by Bromocresol green (BCG) dye binding methoOrdered By: Celio Mullins on 07-03-2023 Albumin BCG dye [Mass/Vol] 4.4 g/dL 3.5-5.7 [facility] Alkaline phosphatase [Enzyma tic activity/volume] in Serum or PlasmaOrdered By: Celio Mullins on 07-03-2023 ALP [Catalytic activity/Vol] 68 U/L 34-104 [facility] Aspartate aminotransferase [ Enzymatic activity/volume] in Serum or PlasmaOrdered By: Celio Mullins on 07-03-2023 AST [Catalytic activity/Vol] 18 U/L 13-39 [facility] Bilirubin.total [Mass/volume ] in Serum or PlasmaOrdered By: Celio Mullins on 07-03-2023 Bilirubin [Mass/Vol] 0.4 mg/dL 0.3-1.0 [facility] Calcium [Mass/volume] in Ser um or PlasmaOrdered By: Celio Mullins on 07-03-2023 Calcium [Mass/Vol] 9.4 mg/dL 8.6-10.3 [facility] Carbon dioxide, total [Moles /volume] in Serum or PlasmaOrdered By: Celio Mullins on 07-03-2023 CO2 [Moles/Vol] 30.1 mmol/L 21.0-31.0 [facility] Chloride [Moles/volume] in S marta or PlasmaOrdered By: Celio Mullins on 07-03-2023 Chloride [Moles/Vol] 105 mmol/L 98-107 [facility] Cholesterol [Mass/volume] in Serum or PlasmaOrdered By: Celio Mullins on 07-03-2023 Cholesterol [Mass/Vol] 126 mg/dL 140-200 [facility] Comment on above: Chol less than 200 m g/dl low riskChol 201-239 mg/dl borderline riskChol 240 mg/dl and greater high risk Cholesterol in LDL Calc [Mas s/Vol]Ordered By: Celio Mullins on 07-03-2023 Cholesterol in LDL [Mass/Vol] 69 mg/dL 0-100 [facility] Comment on above: LDL ATP III CLASSIFI CATIONLDL less than 100 mg/dL OptimalLDL 100-129 mg/dL Near or above optimalLDL 130-159 mg/dL Borderline highLDL 160-189 mg/dL HighLDL greater than 189 mg/dL Very high Cholesterol in VLDL Calc [Ma ss/Vol]Ordered By: Celio Mullins on 07-03-2023 Cholesterol in VLDL [Mass/Vol] 18 mg/dL [facility] Creatinine [Mass/volume] in Serum or PlasmaOrdered By: Celio Mullins on 07-03-2023 Creatinine [Mass/Vol] 0.63 mg/dL 0.60-1.20 [facility] Globulin Calc (S) [Mass/Vol] Ordered By: Celio Mullins on 07-03-2023 Globulin (S) [Mass/Vol] 3.1 g/dL [facility] Glucose [Mass/volume] in Ser um or PlasmaOrdered By: Celio Mullins on 07-03-2023 Glucose [Mass/Vol] 97 mg/dL 70-100 [facility] Comment on above: ADA recommended refe rence rangeRandom Glucose Reference Range is dependent on time and content of last meal. Glucose of more than 200 mg/dL in a nonstressed, ambulatory subject supports the diagnosis of Diabetes Mellitus. No Panel InformationOrdered By: Celio Mullins on 07-03-2023 Estimated GFR (CKD-EPI) > 60.0 mL/Min [facility] Creatinine Clearance (Chem N/A [facility] Potassium [Moles/volume] in Serum or PlasmaOrdered By: Celio Mullins on 07-03-2023 Potassium [Moles/Vol] 4.3 mmol/L 3.5-5.1 [facility] Protein [Mass/volume] in Ser um or PlasmaOrdered By: Celio Mullins on 07-03-2023 Protein [Mass/Vol] 7.5 g/dL 6.4-8.9 [facility] Serum or plasma albumin/glob ulin mass ratioOrdered By: Celio Mullins on 07-03-2023 Albumin/Globulin [Mass ratio] 1.4 {ratio} [facility] Serum or plasma anion gap de terminationOrdered By: Celio Mullins on 07-03-2023 Anion gap [Moles/Vol] 10.2 mmol/L 6.0-15.0 [facility] Serum or plasma high density lipoprotein (HDL) cholesterol measurementOrdered By: Celio Mullins on 07-03-2023 Cholesterol in HDL [Mass/Vol] 39 mg/dL 23-92 [facility] Comment on above: HDL CHOL ATP-III CLA SSIFICATION Cardiovascular RiskHDL > or equal to 60 mg/dL LOWHDL < 40 mg/dL HIGH Serum or plasma total choles terol/high density lipoprotein (HDL) cholesterol mass ratOrdered By: Celio Mullins on 07-03-2023 Cholesterol.total/Mali sterol in HDL [Mass ratio] 3.2 {ratio} <5.0 [facility] Sodium [Moles/volume] in Ser um or PlasmaOrdered By: Celio Mullins on 07-03-2023 Sodium [Moles/Vol] 141 mmol/L 136-145 [facility] Triglyceride [Mass/volume] i n Serum or PlasmaOrdered By: Celio Mullins on 07-03-2023 Triglyceride [Mass/Vol] 92 mg/dL 0-149 [facility] Comment on above: TRIG ATP III CLASSIF ICATIONTRIG less than 150 mg/dL NormalTRIG 150-199 mg/dL Borderline highTRIG 200-500 mg/dL High TRIG greater than 500 mg/dL Very highStandard traceable to the Center for Disease Conrtrol and Prevention (CDC) test method. Urea nitrogen [Mass/volume] in Serum or PlasmaOrdered By: Celio Mullins on 07-03-2023 Urea nitrogen [Mass/Vol] 13 mg/dL 7- [facility] Alanine aminotransferase [En zymatic activity/volume] in Serum or PlasmaOrdered By: Celio Mullins on 07-01-2023 ALT [Catalytic activity/Vol] 21 U/L [facility] Albumin [Mass/volume] in Ser um or Plasma by Bromocresol green (BCG) dye binding methoOrdered By: Celio Mullins on 07-01-2023 Albumin BCG dye [Mass/Vol] 4.6 g/dL 3.5-5.7 [facility] Alkaline phosphatase [Enzyma tic activity/volume] in Serum or PlasmaOrdered By: Celio Mullins on 07-01-2023 ALP [Catalytic activity/Vol] 72 U/L 34-104 [facility] Apolipoprotein B [Mass/volum e] in Serum or PlasmaOrdered By: Celio Mullins on 07-01-2023 Apolipoprotein B [Mass/Vol] 83 mg/dL <90 [facility] Comment on above: Desirable < 90 Charissa almanza High 90 - 99 High 100 - 130 Very High >130 ASCVD RISK THERAPEUTIC TARGET CATEGORY APO B (mg/dL) Very High Risk <80 (if extreme risk <70) High Risk <90 Moderate Risk <90Performed at: [address] [id number] Director: Jeanna Case MD, Phone: [phone] Aspartate aminotransferase [ Enzymatic activity/volume] in Serum or PlasmaOrdered By: Celio Mullins on 07-01-2023 AST [Catalytic activity/Vol] 19 U/L 13-39 [facility] Bilirubin.total [Mass/volume ] in Serum or PlasmaOrdered By: Celio Mullins on 07-01-2023 Bilirubin [Mass/Vol] 0.4 mg/dL 0.3-1.0 [facility] Calcium [Mass/volume] in Ser um or PlasmaOrdered By: Celio Mullins on 07-01-2023 Calcium [Mass/Vol] 9.8 mg/dL 8.6-10.3 [facility] Carbon dioxide, total [Moles /volume] in Serum or PlasmaOrdered By: Celio Mullins on 07-01-2023 CO2 [Moles/Vol] 25.3 mmol/L 21.0-31.0 [facility] Chloride [Moles/volume] in S marta or PlasmaOrdered By: Celio Mullins on 07-01-2023 Chloride [Moles/Vol] 105 mmol/L 98-107 [facility] Creatinine [Mass/volume] in Serum or PlasmaOrdered By: Celio Mullins on 07-01-2023 Creatinine [Mass/Vol] 0.64 mg/dL 0.60-1.20 [facility] Globulin Calc (S) [Mass/Vol] Ordered By: Celio Mullins on 07-01-2023 Globulin (S) [Mass/Vol] 3.2 g/dL [facility] Glucose [Mass/volume] in Ser um or PlasmaOrdered By: Celio Mullins on 07-01-2023 Glucose [Mass/Vol] 95 mg/dL 70-100 [facility] Comment on above: ADA recommended refe [...] hemoglobin (Bld) [Mass/Vol] 117 mg/dL [facility] Hemoglobin A1c percentageOrd ered By: Celio Mullins on 07-01-2023 HbA1c (Bld) [Mass fraction] 5.7 % 4.3-5.6 [facility] Comment on above: Increased risk for d iabetes: 5.7 - 6.4diabetes: >6.4glycemic control for adults with diabetes: <7.0 No Panel InformationOrdered By: Celio Mullins on 07-01-2023 Estimated GFR (CKD-EPI) > 60.0 mL/Min [facility] Creatinine Clearance (Chem N/A [facility] Potassium [Moles/volume] in Serum or PlasmaOrdered By: Celio Mullins on 07-01-2023 Potassium [Moles/Vol] 3.8 mmol/L 3.5-5.1 [facility] Protein [Mass/volume] in Ser um or PlasmaOrdered By: Celio Mullins on 07-01-2023 Protein [Mass/Vol] 7.8 g/dL 6.4-8.9 [facility] Serum or plasma albumin/glob ulin mass ratioOrdered By: Celio Mullins on 07-01-2023 Albumin/Globulin [Mass ratio] 1.4 {ratio} [facility] Serum or plasma anion gap de terminationOrdered By: Celio Mullins on 07-01-2023 Anion gap [Moles/Vol] 11.5 mmol/L 6.0-15.0 [facility] Serum or plasma lipoprotein a measurement (moles/volume)Ordered By: Celio Mullins on 07-01-2023 Lipoprotein a [Moles/Vol] 13.0 nmol/L <75.0 [facility] Comment on above: Note: Values greater than or equal to 75.0 nmol/L may indicate an independent risk factor for CHD, but must be evaluated with caution when applied to non- populations due to the influence of genetic factors on Lp(a) across ethnicities.Performed at: [address] [id number] Director: Cassius Zhong PhD, Phone: [phone] Sodium [Moles/volume] in Ser um or PlasmaOrdered By: Celio Mullins on 07-01-2023 Sodium [Moles/Vol] 138 mmol/L 136-145 [facility] Urea nitrogen [Mass/volume] in Serum or PlasmaOrdered By: Celio Mullins on 07-01-2023 Urea nitrogen [Mass/Vol] 16 mg/dL 03-11 [facility] COVID Quick Testingon 2022 Result Negative Lookback Other SARS-CoV-2 (COVID-19) RNA NA A+probe Ql (Resp)on 02-11-2023 SARS-CoV-2 (COVID-19) RNA SURI+probe Ql (Unsp spec) Negative Lookback Other DHEA-SULFATEon 01-01-2023 DHEA-Sulfate 95.3 ug/dL Normal 84.8-378.0 [facility] Comment on above: Performed By: #### D RIMA #### [facility] [address] [place] [address] Dr. Kaushik Palomares FSHon 01-01-2023 FSH 4.6 mIU/mL Normal [facility] Comment on above: Result Comment: Adul t Female: Follicular phase 3.5 - 12.5 Ovulation phase 4.7 - 21.5 Luteal phase 1.7 - 7.7 Postmenopausal 25.8 - 134.8 Performed By: #### C BC #### [facility] [address] [place] [address] Dr. Kaushik Palomares LUTEINIZING HORMONE (LH)on 01-01-2023 LH 3.5 mIU/mL Normal [facility] Comment on above: Result Comment: Adul t Female: Follicular phase 2.4 - 12.6 Ovulation phase 14.0 - 95.6 Luteal phase 1.0 - 11.4 Postmenopausal 7.7 - 58.5 Performed By: #### L BCLH #### [facility] [address] [place] [address] Dr. Kaushik Palomares CBC AUTO DIFFon 12-31-2022 BASO # 0.1 103/ul Normal 0.0-0.1 [facility] Comment on above: Performed By: #### C BC #### [facility] [address] [place] [address] Dr. Kaushik Palomares Basophils/100 WBC (Bld) 0.8 % Normal 0.2-2.0 [facility] Comment on above: Performed By: #### C BC #### [facility] [address] [place] [address] Dr. Kaushik Palomares EO # 0.1 103/ul Normal 0.0-0.7 [facility] Comment on above: Performed By: #### C BC #### [facility] [address] [place] [address] Dr. Kaushik Palomares Eosinophils/100 WBC (Bld) 1.7 % Normal 0.9-7.0 [facility] Comment on above: Performed By: #### C BC #### [facility] [address] [place] [address] Dr. Kaushik Palomares Erythrocyte distribution width (RBC) [Ratio] 12.8 % Normal 11.0-15.0 [facility] Comment on above: Performed By: #### C BC #### [facility] [address] [place] [address] Dr. Kaushik Palomares Hematocrit (Bld) [Volume fraction] 33.0 % Critically low 36.0-48.0 [facility] Comment on above: Performed By: #### C BC #### [facility] [address] [place] [address] Dr. Kaushik Palomares Hemoglobin (Bld) [Mass/Vol] 11.0 g/dL Critically low 12.0-16.0 [facility] Comment on above: Performed By: #### C BC #### [facility] [address] [place] [address] Dr. Kaushik Palomares IG # 0.03 10e3/ul Normal 0.00-0.03 [facility] Comment on above: Performed By: #### C BC #### [facility] [address] [place] [address] Dr. Kaushik Palomares IG % 0.5 % Normal 0.0-0.5 [facility] Comment on above: Performed By: #### C BC #### [facility] [address] [place] [address] Dr. Kaushik Palomares LYMPH # 2.4 103/ul Normal 1.2-3.8 [facility] Comment on above: Performed By: #### C BC #### [facility] [address] [place] [address] Dr. Kaushik Palomares Lymphocytes/100 WBC (Bld) 36.6 % Normal 20.5-60.0 [facility] Comment on above: Performed By: #### C BC #### [facility] [address] [place] [address] Dr. Kaushik Palomares MANUAL DIFF REQ NO Normal [facility] Comment on above: Performed By: #### C BC #### [facility] [address] [place] [address] Dr. Kaushik Palomares MCH (RBC) [Entitic mass] 29.0 pg Normal 26.7-34.0 [facility] Comment on above: Performed By: #### C BC #### [facility] [address] [place] [address] Dr. Kaushik Palomares MCHC (RBC) [Mass/Vol] 33.3 g/dL Normal 29.9-35.2 [facility] Comment on above: Performed By: #### C BC #### [facility] [address] [place] [address] Dr. Kaushik Palomares MCV (RBC) [Entitic vol] 87.1 fL Normal 81.0-99.0 [facility] Comment on above: Performed By: #### C BC #### [facility] [address] [place] [address] Dr. Kaushik Palomares MONO # 0.2 103/ul Critically low 0.3-0.8 [facility] Comment on above: Performed By: #### C BC #### [facility] [address] [place] [address] Dr. Kaushik Palomares Monocytes/100 WBC (Bld) 3.6 % Normal 1.7-12.0 [facility] Comment on above: Performed By: #### C BC #### [facility] [address] [place] [address] Dr. Kaushik Palomares NEUT # 3.7 103/ul Normal 1.4-6.5 [facility] Comment on above: Performed By: #### C BC #### [facility] [address] [place] [address] Dr. Kaushik Palomares Neutrophils/100 WBC (Bld) 56.8 % Normal 43.0-75.0 [facility] Comment on above: Performed By: #### C BC #### [facility] [address] [place] [address] Dr. Kaushik Palomares Platelet mean volume (Bld) [Entitic vol] 9.8 fL Normal 9.5-13.5 [facility] Comment on above: Performed By: #### C BC #### [facility] [address] [place] [address] Dr. Kaushik Palomares PLT 234 103/ul Normal 150-450 [facility] Comment on above: Performed By: #### C BC #### [facility] [address] [place] [address] Dr. Kaushik Palomares RBC 3.79 106/ul Critically low 4.20-5.40 [facility] Comment on above: Performed By: #### C BC #### [facility] [address] [place] [address] Dr. Kaushik Palomares WBC 6.5 103/ul Normal 4.0-11.0 [facility] Comment on above: Performed By: #### C BC #### [facility] [address] [place] [address] Dr. Kaushik Palomares FREE T4on 12-31-2022 Free T4 [Mass/Vol] 0.79 ng/dL Normal 0.76-1.46 [facility] Comment on above: Performed By: #### F T4 #### [facility] [address] [place] [address] Dr. Kaushik Palomares GLYCOHEMOGLOBIN A1Con 2022 ADA RECOMMENDATION SEE BELOW Normal [facility] Comment on above: Result Comment: ADA RECOMMENDED LIMIT 4.0 - 6.0 ADA THERAPEUTIC TARGET < 7.0 ACTION SUGGESTED > 7.0 Performed By: #### A 1C #### [facility] [address] [address] [address] Kaushik Palomares Glucose [Mass/Vol] 111 mg/dL Normal [facility] Comment on above: Performed By: #### A 1C #### [facility] [address] [address] [address] Kaushik Palomares HbA1c (Bld) [Mass fraction] 5.5 % Normal 4.5-6.2 [facility] Comment on above: Performed By: #### A 1C #### [facility] [address] [address] [address] Kaushik Palomares TSHon 12-31-2022 TSH 1.114 uIU/mL Normal 0.358-3.74 0 [facility] Comment on above: Performed By: #### C BC #### [facility] [address] [place] [address] Dr. Kaushik Palomares US PELVIS AND TRANSVAGon [...] SUGEY MACDONALD Date: 2022-11-26 15:58 Normal [facility] XR SACRUM_COCCYXon 3 XR [...] SUGEY MACDONALD Date: 2022-11-08 10:01 Normal [facility] PAP ACOG PANEL 2: 30 to 65on 11-05-2022 . . Normal [facility] Comment on above: Result Comment: Perf ormed at: WB Performed By: #### C BC #### [facility] [address] [address] [address] Kaushik Palomares Age Gdln ACOG Testing - Normal [facility] Comment on above: Performed By: #### C BC #### [facility] [address] [address] [address] Kaushik Palomares DIAGNOSIS: Comment Normal [facility] Comment on above: Result Comment: NEGA TIVE FOR INTRAEPITHELIAL LESION OR MALIGNANCY. Performed at: WB Performed By: #### C BC #### [facility] [address] [address] [address] Kaushik Palomares HPV Aptima Negative Normal Negative [facility] Comment on above: Result Comment: This nucleic acid amplification test detects fourteen high-risk HPV types (16,18,31,33,35,39,45,51,52,56,58,59,66,68) without differentiation. Performed at: =G Performed By: #### C BC #### [facility] [address] [address] [address] Kaushik Palomares HPV Genotype Reflex Comment Normal [facility] Comment on above: Result Comment: Crit eria not met, HPV Genotype not performed. Performed at: WB Performed By: #### C BC #### [facility] [address] [place] [address] Dr. Kaushik Palomares Methodology: Comment Normal [facility] Comment on above: Result Comment: This liquid based ThinPrep(R) pap test was screened with the use of an image guided system. Performed at: WB Performed By: #### C BC #### [facility] [address] [place] [address] Dr. Kaushik Palomares Note: Comment Normal [facility] Comment on above: Result Comment: The Pap smear is a screening test designed to aid in the detection of premalignant and malignant conditions of the uterine cervix. It is not a diagnostic procedure and should not be used as the sole means of detecting cervical cancer. Both false-positive and false-negative reports do occur. . Performed at: WB Performed By: #### C BC #### [facility] [address] [place] [address] Dr. Kaushik Palomares Performed by: Comment Normal [facility] Comment on above: Result Comment: Robi Graham, Auxiliary Engineer (ASCP) Performed at: WB Performed By: #### C BC #### [facility] [address] [place] [address] Dr. Kaushik Palomares Specimen adequacy: Comment Normal [facility] Comment on above: Result Comment: Sati sfactory for evaluation. Endocervical and/or squamous metaplastic cells (endocervical component) are present. Performed at: WB Performed By: #### C BC #### [facility] [address] [place] [address] Dr. Kaushik Palomares COVID/FLU RT-PCRon 2 SARS-CoV-2 (COVID-19) RNA SURI+probe Ql (Unsp spec) Negative Lookback Other COVID/FLU RT-PCR Negative [facility] Other HCG-BETA SUBUNIT QUANTon hCG,Beta Subunit,Qnt,Serum <1 Normal [facility] Comment on above: Result Comment: Fema le (Non-) 0 - 5 (Postmenopausal) 0 - 8 . Female () Weeks of Gestation 3 6 - 71 4 10 - 750 5 217 - 7110 6 119 - 43150 7 3702 -[id number] 8 72511 -764520 9 03498 -524511 10 10217 -586888 12 50229 -452850 14 52158 - 17115 15 95129 - 05927 16 2805 - 30473 17 2182 - 98992 18 2294 - 28007 Rg ECLIA methodology Performed By: #### H CGSUB #### [facility] [address] [place] [address] Dr. Kaushik Palomares T4 LABCORPon 01-22-2022 T4 [Mass/Vol] 7.8 ug/dL Normal 4.5-12.0 [facility] Comment on above: Performed By: #### T 4LC #### [facility] [address] [place] [address] Dr. Kaushik Palomares CBC AUTO DIFFon 01-21-2022 BASO # 0.1 103/ul Normal 0.0-0.1 [facility] Comment on above: Performed By: #### C BC #### [facility] [address] [place] [address] Dr. Kaushik Palomares Basophils/100 WBC (Bld) 0.6 % Normal 0.2-2.0 [facility] Comment on above: Performed By: #### C BC #### [facility] [address] [place] [address] Dr. Kaushik Palomares EO # 0.1 103/ul Normal 0.0-0.7 [facility] Comment on above: Performed By: #### C BC #### [facility] [address] [place] [address] Dr. Kaushik Palomares Eosinophils/100 WBC (Bld) 1.2 % Normal 0.9-7.0 [facility] Comment on above: Performed By: #### C BC #### [facility] [address] [place] [address] Dr. Kaushik Palomares Erythrocyte distribution width (RBC) [Ratio] 13.3 % Normal 11.0-15.0 [facility] Comment on above: Performed By: #### C BC #### [facility] [address] [place] [address] Dr. Kaushik Palomares Hematocrit (Bld) [Volume fraction] 40.0 % Normal 36.0-48.0 [facility] Comment on above: Performed By: #### C BC #### [facility] [address] [place] [address] Dr. Kaushik Palomares Hemoglobin (Bld) [Mass/Vol] 12.7 g/dL Normal 12.0-16.0 [facility] Comment on above: Performed By: #### C BC #### [facility] [address] [place] [address] Dr. Kaushik Palomares IG # 0.02 10e3/ul Normal 0.00-0.03 [facility] Comment on above: Performed By: #### C BC #### [facility] [address] [place] [address] Dr. Kaushik Palomares IG % 0.2 % Normal 0.0-0.5 [facility] Comment on above: Performed By: #### C BC #### [facility] [address] [place] [address] Dr. Kaushik Palomares LYMPH # 3.0 103/ul Normal 1.2-3.8 [facility] Comment on above: Performed By: #### C BC #### [facility] [address] [place] [address] Dr. Kaushik Palomares Lymphocytes/100 WBC (Bld) 32.9 % Normal 20.5-60.0 [facility] Comment on above: Performed By: #### C BC #### [facility] [address] [place] [address] Dr. Kaushik Palomares MANUAL DIFF REQ NO Normal [facility] Comment on above: Performed By: #### C BC #### [facility] [address] [place] [address] Dr. Kaushik Palomares MCH (RBC) [Entitic mass] 28.5 pg Normal 26.7-34.0 [facility] Comment on above: Performed By: #### C BC #### [facility] [address] [place] [address] Dr. Kaushik Palomares MCHC (RBC) [Mass/Vol] 31.8 g/dL Normal 29.9-35.2 [facility] Comment on above: Performed By: #### C BC #### [facility] [address] [place] [address] Dr. Kaushik Palomares MCV (RBC) [Entitic vol] 89.7 fL Normal 81.0-99.0 [facility] Comment on above: Performed By: #### C BC #### [facility] [address] [place] [address] Dr. Kaushik Palomares MONO # 0.5 103/ul Normal 0.3-0.8 [facility] Comment on above: Performed By: #### C BC #### [facility] [address] [place] [address] Dr. Kaushik Palomares Monocytes/100 WBC (Bld) 5.1 % Normal 1.7-12.0 [facility] Comment on above: Performed By: #### C BC #### [facility] [address] [place] [address] Dr. Kaushik Palomares NEUT # 5.4 103/ul Normal 1.4-6.5 [facility] Comment on above: Performed By: #### C BC #### [facility] [address] [place] [address] Dr. Kaushik Palomares Neutrophils/100 WBC (Bld) 60.0 % Normal 43.0-75.0 [facility] Comment on above: Performed By: #### C BC #### [facility] [address] [place] [address] Dr. Kaushik Palomares Platelet mean volume (Bld) [Entitic vol] 9.3 fL Critically low 9.5-13.5 [facility] Comment on above: Performed By: #### C BC #### [facility] [address] [place] [address] Dr. Kaushik Palomares PLT 221 103/ul Normal 150-450 [facility] Comment on above: Performed By: #### C BC #### [facility] [address] [place] [address] Dr. Kaushik Palomares RBC 4.46 106/ul Normal 4.20-5.40 [facility] Comment on above: Performed By: #### C BC #### [facility] [address] [place] [address] Dr. Kaushik Palomares WBC 9.0 103/ul Normal 4.0-11.0 [facility] Comment on above: Performed By: #### C BC #### [facility] [address] [place] [address] Dr. Kaushik Palomares GLYCOHEMOGLOBIN A1Con 2021 ADA RECOMMENDATION SEE BELOW Normal [facility] Comment on above: Result Comment: ADA RECOMMENDED LIMIT 4.0 - 6.0 ADA THERAPEUTIC TARGET < 7.0 ACTION SUGGESTED > 7.0 Performed By: #### C BC #### [facility] [address] [place] [address] Dr. Kaushik Palomares Glucose [Mass/Vol] 94 mg/dL Normal [facility] Comment on above: Performed By: #### C BC #### [facility] [address] [place] [address] Dr. Kaushik Paloamres HbA1c (Bld) [Mass fraction] 4.9 % Normal 4.5-6.2 [facility] Comment on above: Performed By: #### C BC #### [facility] [address] [place] [address] Dr. Kaushik Palomares LIPID PROFILEon 01-21-2022 CHOL-HDL RATIO NORM SEE BELOW Normal [facility] Comment on above: Result Comment: 3.3 - 4.4 LOW RISK 4.4 - 7.1 AVERAGE RISK 7.1 - 11.0 MODERATE RISK >11.0 HIGH RISK Performed By: #### L IPID, CMP, TSH #### [facility] [address] [place] [address] Dr. Kaushik Palomares Cholesterol [Mass/Vol] 168 mg/dL Normal <=200 [facility] Comment on above: Performed By: #### L IPID, CMP, TSH #### [facility] [address] [place] [address] Dr. Kaushik Palomares Cholesterol in HDL [Mass/Vol] 41 mg/dL Normal 40-60 [facility] Comment on above: Performed By: #### L IPID, CMP, TSH #### [facility] [address] [address] [address] Kaushik Palomares Cholesterol in LDL [Mass/Vol] 90.2 mg/dL Normal [facility] Comment on above: Performed By: #### L IPID, CMP, TSH #### [facility] [address] [address] [address] Kaushik Palomares Cholesterol.total/Mali sterol in HDL [Mass ratio] 4.1 {ratio} Normal [facility] Comment on above: Performed By: #### L IPID, CMP, TSH #### [facility] [address] [address] [address] Kaushik Palomares HDL NORMAL > or = 60 mg/dl - LO W CARDIOVASCULAR RISK <40 mg/dl - HIGH CARDIOVASCULAR RISK Normal [facility] Comment on above: Performed By: #### L IPID, CMP, TSH #### [facility] [address] [address] [address] Kaushik Palomares LDL CALC NORMAL SEE BELOW Normal [facility] Comment on above: Result Comment: <100 mg/dl OPTIMAL 100 - 129 mg/dl NEAR OR ABOVE OPTIMAL 130 - 159 mg/dl BORDERLINE HIGH 160 - 189 mg/dl HIGH >190 mg/dl VERY HIGH Performed By: #### L IPID, CMP, TSH #### [facility] [address] [address] [address] Kaushik Palomares Triglyceride [Mass/Vol] 184 mg/dL Critically high <=150 [facility] Comment on above: Performed By: #### L IPID, CMP, TSH #### [facility] [address] [address] [address] Kaushik Palomares VLDL CALC 36.8 mg/dL Normal [facility] Comment on above: Performed By: #### L IPID, CMP, TSH #### [facility] [address] [address] [address] Kaushik Palomares MICROALBUMIN, RAND URon 06-0 mALB 2.0 mg/L Normal <=30.0 [facility] Comment on above: Performed By: #### C BC #### [facility] [address] [address] [address] Kaushik Palomares PROF 14(COMP METB)on 022 Albumin [Mass/Vol] 3.7 g/dL Normal 3.4-5.[address] [facility] Comment on above: Performed By: #### L IPID, CMP, TSH #### [facility] [address] [address] [address] Kaushik Palomares Albumin/Globulin [Mass ratio] 0.9 {ratio} Normal [facility] Comment on above: Performed By: #### L IPID, CMP, TSH #### [facility] [address] [place] [address] Dr. Kaushik Palomares ALP [Catalytic activity/Vol] 53 U/L Normal 46-116 [facility] Comment on above: Performed By: #### L IPID, CMP, TSH #### [facility] [address] [address] [address] Kaushik Palomares ALT [Catalytic activity/Vol] 44 U/L Normal 14-59 [facility] Comment on above: Performed By: #### L IPID, CMP, TSH #### [facility] [address] [place] [address] Dr. Kaushik Palomares Anion gap [Moles/Vol] 6.8 mmol/L Normal [facility] Comment on above: Performed By: #### L IPID, CMP, TSH #### [facility] [address] [place] [address] Dr. Kaushik Palomares AST [Catalytic activity/Vol] 22 U/L Normal 15-37 [facility] Comment on above: Performed By: #### L IPID, CMP, TSH #### [facility] [address] [place] [address] Dr. Kaushik Palomares Bilirubin [Mass/Vol] 0.3 mg/dL Normal 0.2-1.0 [facility] Comment on above: Performed By: #### L IPID, CMP, TSH #### [facility] [address] [place] [address] Dr. Kaushik Palomares Calcium [Mass/Vol] 9.2 mg/dL Normal 8.5-10.[address] [facility] Comment on above: Performed By: #### L IPID, CMP, TSH #### [facility] [address] [address] [address] Kaushik Palomares Chloride [Moles/Vol] 102 mmol/L Normal 98-107 [facility] Comment on above: Performed By: #### L IPID, CMP, TSH #### [facility] [address] [address] [address] Kaushik Palomares CO2 [Moles/Vol] 31.4 mmol/L Normal 21.0-32.0 [facility] Comment on above: Performed By: #### L IPID, CMP, TSH #### [facility] [address] [address] [address] Kaushik Palomares Creatinine [Mass/Vol] 0.71 mg/dL Normal 0.55-1.02 [facility] Comment on above: Performed By: #### L IPID, CMP, TSH #### [facility] [address] [place] [address] Dr. Kaushik Palomares EGFR-AF MALAGASY >60 Normal >=60 [facility] Comment on above: Performed By: #### L IPID, CMP, TSH #### [facility] [address] [address] [address] Kaushik Palomares EGFR-NON AF MALAGASY >60 Normal >=60 [facility] Comment on above: Performed By: #### L IPID, CMP, TSH #### [facility] [address] [address] [address] Kaushik Palomares Globulin (S) [Mass/Vol] 4.2 g/dL Normal [facility] Comment on above: Performed By: #### L IPID, CMP, TSH #### [facility] [address] [address] [address] Kaushik Palomares Glucose [Mass/Vol] 93 mg/dL Normal 74-[address] [facility] Comment on above: Performed By: #### L IPID, CMP, TSH #### [facility] [address] [place] [address] Dr. Kaushik Palomares Potassium [Moles/Vol] 4.2 mmol/L Normal 3.5-5.1 [facility] Comment on above: Performed By: #### L IPID, CMP, TSH #### [facility] [address] [place] [address] Dr. Kaushik Palomares Protein [Mass/Vol] 7.9 g/dL Normal 6.4-8.2 [facility] Comment on above: Performed By: #### L IPID, CMP, TSH #### [facility] [address] [place] [address] Dr. Kaushik Palomares Sodium [Moles/Vol] 136 mmol/L Normal 136-[address] [facility] Comment on above: Performed By: #### L IPID, CMP, TSH #### [facility] [address] [place] [address] Dr. Kaushik Palomares Urea nitrogen [Mass/Vol] 11.0 mg/dL Normal 7.0-18.0 [facility] Comment on above: Performed By: #### L IPID, CMP, TSH #### [facility] [address] [place] [address] Dr. Kaushik Palomares Urea nitrogen/Creatinine [Mass ratio] 15.5 mg/mg Normal [facility] Comment on above: Performed By: #### L IPID, CMP, TSH #### [facility] [address] [place] [address] Dr. Kaushik Palomares TSHon 01-21-2022 TSH 1.298 uIU/mL Normal 0.358-3.74 0 [facility] Comment on above: Performed By: #### C BC #### [facility] [address] [place] [address] Dr. Kaushik Palomares TSH RANGE SEE BELOW Normal [facility] Comment on above: Result Comment: <0.3 4 UIU/ml HYPERTHYROID 0.34-5.60 UIU/ml EUTHYROID >5.60 UIU/ml HYPOTHYROID Performed By: #### C BC #### [facility] [address] [place] [address] Dr. Kaushik CHAUDHARY Quick Testingon 2020 Result Negative Lookback Other Quick Strepon 06-17-2021 S. pyogenes Org specific cx Ql (Throat) Negative Spontly Other Quick Strep Lookback Other Urinalysis - AUTOMATEDon Appearance (U) cloudy [employer] Other Bilirubin Ql (U) Negative Spontly Other Color (U) yellow Lookback Other Glucose Ql (U) Negative [employer] Other Hemoglobin Ql (U) large [employer] Other Ketones Ql (U) Negative [employer] Other Leukocyte esterase Test strip Ql (U) trace Lookback Other Nitrite Ql (U) Positive [employer] Other pH (U) 5.5 [pH] Lookback Other Protein Ql (U) 100 [employer] Other Specific gravity (U) [Rel density] 1.025 Lookback Other Urobilinogen (U) [Mass/Vol] 0.2 mg/dL Lookback Other Urinalysis - AUTOMATED No rtCellARide Other Urine Cultureon 05-31-2021 Urine Culture >100,000 Lookback Other Urine Culture <16 Lookback Other Urine Culture >16 Lookback Other Urine Culture <4 Lookback Other Urine Culture 8 Lookback Other Urine Culture <2 Lookback Other Urine Culture <1 Lookback Other Urine Culture >2 Lookback Other Urine Culture <0.5 [employer] Other Urine Culture >8 Lookback Other Urine Culture >4 Lookback Other Urine Culture <32 Lookback Other Urine Culture >2/38 Lookback Other Vital Signs Date Time Vital Sign Value Performing Clinician Faci lity 11-15-2024 13:35-0400 Body height 162.56 cm Manisha Mrac APRN Work Phone: [facility] 11-15-2024 13:35-0400 Body mass index (BMI) [Ratio] 57.4 kg/m2 Manisha Marc APRN Work Phone: [facility] 11-15-2024 13:35-0400 Body temperature 97.4 [degF] Manisha Marc APRN Work Phone: [facility] 11-15-2024 13:35-0400 Body weight 151.95 kg Manisha Marc APRN Work Phone: [facility] 11-15-2024 13:35-0400 Diastolic blood pressure 80 mm[Hg] Manisha Marc APRN Work Phone: [facility] 11-15-2024 13:35-0400 Heart rate 111 /min Manisha Marc APRN Work Phone: [facility] 11-15-2024 13:35-0400 Systolic blood pressure 122 mm[Hg] Manisha Marc APRN Work Phone: [facility] 11-03-2024 15:56-0400 Body height 162.6 cm Marko Celestina DO Work Phone: [facility] 11-03-2024 15:56-0400 Body mass index (BMI) [Ratio] 57.12 kg/m2 Marko Celestina DO Work Phone: [facility] 11-03-2024 15:56-0400 Body weight 150.96 kg Marko Celestina DO Work Phone: [facility] 11-03-2024 15:56-0400 Diastolic blood pressure 70 mm[Hg] Marko Celestina DO Work Phone: [facility] 11-03-2024 15:56-0400 Systolic blood pressure 110 mm[Hg] Marko Celestina DO Work Phone: [facility] 09-27-2024 15:46-0500 Body height 162.56 cm PHYSICIAN NO [facility] 09-27-2024 15:46-0500 Body mass index (BMI) [Ratio] 57.3 kg/m2 PHYSICIAN NO [facility] 09-27-2024 15:46-0500 Body temperature 97.9 [degF] PHYSICIAN NO [place] 09-27-2024 15:46-0500 Body weight 151.49 kg PHYSICIAN NO [facility] 09-27-2024 15:46-0500 Diastolic blood pressure 83 mm[Hg] PHYSICIAN NO [facility] 09-27-2024 15:46-0500 Heart rate 94 /min PHYSICIAN NO [facility] 09-27-2024 15:46-0500 Respiratory rate 18 /min PHYSICIAN NO [place] 09-27-2024 15:46-0500 SaO2% (BldA) [Mass fraction] 99 % PHYSICIAN NO [facility] 09-27-2024 15:46-0500 Systolic blood pressure 136 mm[Hg] PHYSICIAN NO [facility] 08-28-2024 13:47-0500 Body height 162.56 cm PHYSICIAN NO [facility] 08-28-2024 13:47-0500 Body mass index (BMI) [Ratio] 57.4 kg/m2 PHYSICIAN NO [facility] 08-28-2024 13:47-0500 Body temperature 97.1 [degF] PHYSICIAN NO [place] 08-28-2024 13:47-0500 Body weight 151.95 kg PHYSICIAN NO [facility] 08-28-2024 13:47-0500 Diastolic blood pressure 86 mm[Hg] PHYSICIAN NO [facility] 08-28-2024 13:47-0500 Heart rate 105 /min PHYSICIAN NO [facility] 08-28-2024 13:47-0500 Respiratory rate 16 /min PHYSICIAN NO [place] 08-28-2024 13:47-0500 SaO2% (BldA) [Mass fraction] 97 % PHYSICIAN NO [facility] 08-28-2024 13:47-0500 Systolic blood pressure 136 mm[Hg] PHYSICIAN NO [facility] 08-24-2024 11:00-0500 Body height 162.56 cm Manisha Marc APRN Work Phone: [facility] 08-24-2024 11:00-0500 Body mass index (BMI) [Ratio] 56.5 kg/m2 Manisha Marc EMPLOYEE RELATIONS DIRECTOR Work Phone: [facility] 08-24-2024 11:00-0500 Body temperature 97 [degF] Manisha Marc APRN Work Phone: [facility] 08-24-2024 11:00-0500 Body weight 149.34 kg Manisha Marc APRN Work Phone: [facility] 08-24-2024 11:00-0500 Diastolic blood pressure 82 mm[Hg] Manisha Marc APRN Work Phone: [facility] 08-24-2024 11:00-0500 Heart rate 104 /min Manisha Marc APRN Work Phone: [facility] 08-24-2024 11:00-0500 SaO2% (BldA) [Mass fraction] 95 % Manisha Barclayfani EMPLOYEE RELATIONS DIRECTOR Work Phone: [facility] 08-24-2024 11:00-0500 Systolic blood pressure 134 mm[Hg] Manisha Keanetad EMPLOYEE RELATIONS DIRECTOR Work Phone: [facility] 08-19-2024 11:05-0500 Diastolic blood pressure 72 mm[Hg] Manisha Barclayfani EMPLOYEE RELATIONS DIRECTOR Work Phone: [facility] 08-19-2024 11:05-0500 Heart rate 82 /min Manisha Barclayeliudmarycarmentad EMPLOYEE RELATIONS DIRECTOR Work Phone: [facility] 08-19-2024 11:05-0500 Respiratory rate 16 /min Manisha Barclayfani EMPLOYEE RELATIONS DIRECTOR Work Phone: [facility] 08-19-2024 11:05-0500 SaO2% (BldA) [Mass fraction] 99 % Manisha Barclayfani EMPLOYEE RELATIONS DIRECTOR Work Phone: [facility] 08-19-2024 11:05-0500 Systolic blood pressure 115 mm[Hg] Manisha Keanetad EMPLOYEE RELATIONS DIRECTOR Work Phone: [facility] 08-19-2024 09:01-0500 Body height 162.56 cm Manisha Barclayfani EMPLOYEE RELATIONS DIRECTOR Work Phone: [facility] 08-19-2024 09:01-0500 Body weight 149.68 kg Manisha Barclayeliudmarycarmentad EMPLOYEE RELATIONS DIRECTOR Work Phone: [facility] 08-16-2024 11:40-0500 Body mass index (BMI) [Ratio] 57.33 kg/m2 Consuelo Rosadooll DIRECTOR INDUSTRIAL NURSING Work Phone: [facility] 08-16-2024 11:40-0500 Body weight 151.5 kg Consuelo Ivan DIRECTOR INDUSTRIAL NURSING Work Phone: [facility] 08-16-2024 11:40-0500 Diastolic blood pressure 92 mm[Hg] Consuelo Love DIRECTOR INDUSTRIAL NURSING Work Phone: [facility] 08-16-2024 11:40-0500 Heart rate 82 /min Consuelo Love DIRECTOR INDUSTRIAL NURSING Work Phone: [facility] 08-16-2024 11:40-0500 SaO2% (BldA) [Mass fraction] 93 % Consuelo Love DIRECTOR INDUSTRIAL NURSING Work Phone: [facility] 08-16-2024 11:40-0500 Systolic blood pressure 144 mm[Hg] Consuelo Love DIRECTOR INDUSTRIAL NURSING Work Phone: [facility] 08-09-2024 15:48-0500 Body height 162.56 cm Manisha Marc APRN Work Phone: [facility] 08-09-2024 15:48-0500 Body mass index (BMI) [Ratio] 58.1 kg/m2 Manisha Marc APRN Work Phone: [facility] 08-09-2024 15:48-0500 Body temperature 98.7 [degF] Manisha Marc APRN Work Phone: [facility] 08-09-2024 15:48-0500 Body weight 153.76 kg Manisha Marc APRN Work Phone: [facility] 08-09-2024 15:48-0500 Diastolic blood pressure 94 mm[Hg] Manisha Marc APRN Work Phone: [facility] 08-09-2024 15:48-0500 Heart rate 135 /min Manisha Marc APRN Work Phone: [facility] 08-09-2024 15:48-0500 SaO2% (BldA) [Mass fraction] 96 % Manisha Marc APRN Work Phone: [facility] 08-09-2024 15:48-0500 Systolic blood pressure 134 mm[Hg] Manisha Marc APRN Work Phone: [facility] 06-23-2024 12:21-0500 Body mass index (BMI) [Ratio] 57.47 kg/m2 Christopher Kenny DO Work Phone: [facility] 06-23-2024 12:21-0500 Body weight 151.86 kg Christopher Kenny DO Work Phone: [facility] 06-23-2024 12:21-0500 Diastolic blood pressure 81 mm[Hg] Christopher Kenny DO Work Phone: [facility] 06-23-2024 12:21-0500 Heart rate 104 /min Christopher Kenny DO Work Phone: [facility] 06-23-2024 12:21-0500 SaO2% (BldA) [Mass fraction] 95 % Christopher Kenny DO Work Phone: [facility] 06-23-2024 12:21-0500 Systolic blood pressure 132 mm[Hg] Christopher Kenny DO Work Phone: [facility] 06-21-2024 11:18-0500 Body height 162.56 cm ROSITA Marc Work Phone: [facility] 06-21-2024 11:18-0500 Body mass index (BMI) [Ratio] 57 kg/m2 ROSITA Marc Work Phone: [facility] 06-21-2024 11:18-0500 Body temperature 97.3 [degF] ROSITA Marc Work Phone: [facility] 06-21-2024 11:18-0500 Body weight 150.81 kg ROSITA Marc Work Phone: [facility] 06-21-2024 11:18-0500 Diastolic blood pressure 88 mm[Hg] ROSITA Marc Work Phone: [facility] 06-21-2024 11:18-0500 Heart rate 135 /min EMPLOYEE RELATIONS DIRECTOR Manisha Charlyacher Work Phone: [facility] 06-21-2024 11:18-0500 SaO2% (BldA) [Mass fraction] 94 % EMPLOYEE RELATIONS DIRECTOR Manisha Denyrbacher Work Phone: [facility] 06-21-2024 11:18-0500 Systolic blood pressure 136 mm[Hg] EMPLOYEE RELATIONS DIRECTORBryon ThaoManisha Charlyacher Work Phone: [facility] 06-15-2024 09:29-0400 Body height 162.56 cm EMPLOYEE RELATIONS DIRECTORBryon ColladoManisha Charlyacher Work Phone: [facility] 06-15-2024 09:29-0400 Body mass index (BMI) [Ratio] 57.9 kg/m2 EMPLOYEE RELATIONS DIRECTOR Manisha Charlyacher Work Phone: [facility] 06-15-2024 09:29-0400 Body temperature 97.5 [degF] EMPLOYEE RELATIONS DIRECTORBryon ThaoManisha Charlyacher Work Phone: [facility] 06-15-2024 09:29-0400 Body weight 152.97 kg EMPLOYEE RELATIONS DIRECTOR Manisha Charlyacher Work Phone: [facility] 06-15-2024 09:29-0400 Diastolic blood pressure 88 mm[Hg] EMPLOYEE RELATIONS DIRECTORBryon Parksacher Work Phone: [facility] 06-15-2024 09:29-0400 Heart rate 103 /min EMPLOYEE RELATIONS DIRECTORBryon ColladoManisha Charlyacher Work Phone: [facility] 06-15-2024 09:29-0400 Respiratory rate 18 /min EMPLOYEE RELATIONS DIRECTORBryon Parksacher Work Phone: [facility] 06-15-2024 09:29-0400 SaO2% (BldA) [Mass fraction] 95 % EMPLOYEE RELATIONS DIRECTORBryon Parksacher Work Phone: [facility] 06-15-2024 09:29-0400 Systolic blood pressure 128 mm[Hg] EMPLOYEE RELATIONS DIRECTOR Manisha Denyrbacher Work Phone: [facility] 04-21-2024 14:31-0400 Body height 162.56 cm EMPLOYEE RELATIONS DIRECTOR Manisha Denyrbacher Work Phone: [facility] 04-21-2024 14:31-0400 Body mass index (BMI) [Ratio] 55 kg/m2 EMPLOYEE RELATIONS DIRECTOR Manisha Denyrbacher Work Phone: [facility] 04-21-2024 14:31-0400 Body weight 145.6 kg EMPLOYEE RELATIONS DIRECTOR Manisha Denyrbacher Work Phone: [facility] 04-21-2024 14:31-0400 Diastolic blood pressure 88 mm[Hg] EMPLOYEE RELATIONS DIRECTOR Manisha Denyrbacher Work Phone: [facility] 04-21-2024 14:31-0400 Heart rate 111 /min EMPLOYEE RELATIONS DIRECTOR Manisha Charlyacher Work Phone: [facility] 04-21-2024 14:31-0400 SaO2% (BldA) [Mass fraction] 97 % EMPLOYEE RELATIONS DIRECTOR Manisha Charlyacher Work Phone: [facility] 04-21-2024 14:31-0400 Systolic blood pressure 136 mm[Hg] EMPLOYEE RELATIONS DIRECTORBryon ThaoManisha Denyrbacher Work Phone: [facility] 11-26-2023 08:40-0400 Body height 162.56 cm EMPLOYEE RELATIONS DIRECTORBryon ColladoManisha Denyrbacher Work Phone: [facility] 11-26-2023 08:40-0400 Body mass index (BMI) [Ratio] 52.9 kg/m2 EMPLOYEE RELATIONS DIRECTORBryon ColladoManisha Denyrbacher Work Phone: [facility] 11-26-2023 08:40-0400 Body weight 139.79 kg EMPLOYEE RELATIONS DIRECTORBryon Barclayrbacher Work Phone: [facility] 11-26-2023 08:40-0400 Diastolic blood pressure 79 mm[Hg] EMPLOYEE RELATIONS DIRECTOR Manisha Denyrbacher Work Phone: [facility] 11-26-2023 08:40-0400 Heart rate 97 /min EMPLOYEE RELATIONS DIRECTOR Manisha Denyrbacher Work Phone: [facility] 11-26-2023 08:40-0400 SaO2% (BldA) [Mass fraction] 99 % EMPLOYEE RELATIONS DIRECTOR Manisha Denyrbacher Work Phone: [facility] 11-26-2023 08:40-0400 Systolic blood pressure 131 mm[Hg] EMPLOYEE RELATIONS DIRECTOR Manisha Denyrbacher Work Phone: [facility] 11-03-2023 14:06-0400 Body height 162.56 cm EMPLOYEE RELATIONS DIRECTOR Manisha Denyrbacher Work Phone: [facility] 11-03-2023 14:06-0400 Body mass index (BMI) [Ratio] 53.1 kg/m2 EMPLOYEE RELATIONS DIRECTOR Manisha Denyrbacher Work Phone: [facility] 11-03-2023 14:06-0400 Body weight 140.61 kg EMPLOYEE RELATIONS DIRECTOR Manisha Denyrbacher Work Phone: [facility] 11-03-2023 14:06-0400 Diastolic blood pressure 78 mm[Hg] EMPLOYEE RELATIONS DIRECTORBryon ThaoManisha Denyrbacher Work Phone: [facility] 11-03-2023 14:06-0400 Heart rate 105 /min EMPLOYEE RELATIONS DIRECTORBryon ThaoManisha Denyrbacher Work Phone: [facility] 11-03-2023 14:06-0400 SaO2% (BldA) [Mass fraction] 98 % EMPLOYEE RELATIONS DIRECTORBryon ThaoManisha Charlyacher Work Phone: [facility] 11-03-2023 14:06-0400 Systolic blood pressure 118 mm[Hg] EMPLOYEE RELATIONS DIRECTORBryon Barclayrbacher Work Phone: [facility] 10-08-2023 10:50-0500 Body height 162.56 cm EMPLOYEE RELATIONS DIRECTORBryon Keaner Work Phone: [facility] 10-08-2023 10:50-0500 Body weight 139.25 kg EMPLOYEE RELATIONS DIRECTORBryon Parksacher Work Phone: [facility] 10-01-2023 09:20-0500 Body height 162.56 cm EMPLOYEE RELATIONS DIRECTORBryon Parksacher Work Phone: [facility] 10-01-2023 09:20-0500 Body mass index (BMI) [Ratio] 53.6 kg/m2 EMPLOYEE RELATIONS DIRECTORBryon Parksacher Work Phone: [facility] 10-01-2023 09:20-0500 Body weight 141.69 kg EMPLOYEE RELATIONS DIRECTORBryon Parksacher Work Phone: [facility] 10-01-2023 09:20-0500 Diastolic blood pressure 75 mm[Hg] EMPLOYEE RELATIONS DIRECTORBryon Parksacher Work Phone: [facility] 10-01-2023 09:20-0500 Heart rate 85 /min EMPLOYEE RELATIONS DIRECTORBryon Keaner Work Phone: [facility] 10-01-2023 09:20-0500 Respiratory rate 18 /min EMPLOYEE RELATIONS DIRECTORBryon Parksacher Work Phone: [facility] 10-01-2023 09:20-0500 SaO2% (BldA) [Mass fraction] 99 % EMPLOYEE RELATIONS DIRECTORBryon Parksacher Work Phone: [facility] 10-01-2023 09:20-0500 Systolic blood pressure 123 mm[Hg] ROSITA Parksacher Work Phone: [facility] 09-03-2023 08:00-0500 Body height 162.56 cm ROSITA Parksacher Work Phone: [facility] 09-03-2023 08:00-0500 Body weight 138.79 kg ROSITA Thaonifer Tari Work Phone: [facility] 09-03-2023 08:00-0500 Diastolic blood pressure 78 mm[Hg] EMPLOYEE RELATIONS DIRECTOR Manisha Charlyacher Work Phone: [facility] 09-03-2023 08:00-0500 Systolic blood pressure 118 mm[Hg] EMPLOYEE RELATIONS DIRECTOR Manisha Charlyacher Work Phone: [facility] 08-19-2023 09:45-0500 Body height 162.56 cm Nely Luis Antoniohari Other [facility] 08-13-2023 14:00-0500 Body height 162.56 cm Manisha Marc Other [facility] 08-13-2023 14:00-0500 Body mass index (BMI) [Ratio] 52.35 kg/m2 Manisha Marc Other [facility] Other 08-13-2023 14:00-0500 Body weight 138.35 kg Manisha Marc Other [facility] Other 08-13-2023 14:00-0500 Body weight 138.34 kg EMPLOYEE RELATIONS DIRECTOR Manisha Tari Work Phone: [facility] 08-13-2023 14:00-0500 Diastolic blood pressure 80 mm[Hg] Manisha Marc Other [facility] 08-13-2023 14:00-0500 SaO2% (BldA) [Mass fraction] 98 % Manisha Marc Other [facility] Other 08-13-2023 14:00-0500 Systolic blood pressure 114 mm[Hg] Manisha Marc Other [facility] 07-15-2023 07:45-0500 Body height 162.56 cm Celio Mullins Other [facility] 07-15-2023 07:45-0500 Body mass index (BMI) [Ratio] 52.98 kg/m2 Celio Mullins Other [facility] Other 07-15-2023 07:45-0500 Body weight 140.03 kg Celio Mullins Other [facility] Other 07-15-2023 07:45-0500 Body weight 140.02 kg ROSITA Marc Work Phone: [facility] 07-15-2023 07:45-0500 Diastolic blood pressure 66 mm[Hg] Celio Mullins Other [facility] 07-15-2023 07:45-0500 Respiratory rate 18 /min Celio Mullins Other [facility] Other 07-15-2023 07:45-0500 SaO2% (BldA) [Mass fraction] 98 % Celio Mullins Other [facility] Other 07-15-2023 07:45-0500 Systolic blood pressure 112 mm[Hg] Celio Mullins Other [facility] 07-07-2023 11:15-0500 Body height 162.56 cm Michelle Ernandez Other [facility] 07-07-2023 11:15-0500 Body mass index (BMI) [Ratio] 52.69 kg/m2 Michelle Ernandez Other [facility] Other 07-07-2023 11:15-0500 Body temperature 98 [degF] Michelle Ernandez Other [facility] Other 07-07-2023 11:15-0500 Body weight 139.26 kg Michelle Oma Other [facility] Other 07-07-2023 11:15-0500 Body weight 139.25 kg ROSITA Manisha Denyaustintad Work Phone: [facility] 07-07-2023 11:15-0500 Respiratory rate 20 /min Michelle Oma Other [facility] Other 07-07-2023 11:15-0500 SaO2% (BldA) [Mass fraction] 98 % Michelle Oma Other [facility] Other 06-29-2023 10:20-0500 Body height 162.56 cm Michelle Oma Other [facility] Other 06-29-2023 10:20-0500 Body mass index (BMI) [Ratio] 53.03 kg/m2 Michelle Oma Other [facility] Other 06-29-2023 10:20-0500 Body temperature 99.7 [degF] Michelle Oma Other [facility] Other 06-29-2023 10:20-0500 Body weight 140.16 kg Michelle Oma Other [facility] Other 06-29-2023 10:20-0500 Respiratory rate 19 /min Michelle Oma Other [facility] Other 06-29-2023 10:20-0500 SaO2% (BldA) [Mass fraction] 98 % Michelle Oma Other [facility] Other 06-11-2023 15:30-0400 Body height 162.56 cm Manisha Keanetad Other [facility] Other 06-11-2023 15:30-0400 Body mass index (BMI) [Ratio] 53.79 kg/m2 Manisha Marc Other [facility] Other 06-11-2023 15:30-0400 Body weight 142.16 kg Manisha Marc Other [facility] Other 06-11-2023 15:30-0400 Diastolic blood pressure 62 mm[Hg] Manisha Marc Other [facility] Other 06-11-2023 15:30-0400 SaO2% (BldA) [Mass fraction] 99 % Manisha Parksgareth Other [facility] Other 06-11-2023 15:30-0400 Systolic blood pressure 126 mm[Hg] Manisha Keanetad Other [facility] Other 05-06-2023 13:40-0400 Body height 162.56 cm Casandra Hassan Other [facility] Other 05-06-2023 13:40-0400 Body mass index (BMI) [Ratio] 53.65 kg/m2 Casandra Hassan Other [facility] Other 05-06-2023 13:40-0400 Body temperature 98.4 [degF] Casandra Hassan Other [facility] Other 05-06-2023 13:40-0400 Body weight 141.8 kg Casandra Hassan Other [facility] Other 05-06-2023 13:40-0400 Diastolic blood pressure 81 mm[Hg] Casandra Tesfayeley Other [facility] Other 05-06-2023 13:40-0400 Respiratory rate 18 /min Casandra Sonya Other [facility] Other 05-06-2023 13:40-0400 SaO2% (BldA) [Mass fraction] 95 % Casandra Tesfayeley Other [facility] Other 05-06-2023 13:40-0400 Systolic blood pressure 134 mm[Hg] Casandra Sonya Other [facility] Other 04-30-2023 08:30-0400 Body height 162.56 cm Manisha Marc Other [facility] Other 04-30-2023 08:30-0400 Body mass index (BMI) [Ratio] 53.86 kg/m2 Manisha Marc Other [facility] Other 04-30-2023 08:30-0400 Body weight 142.34 kg Manisha Marc Other [facility] Other 04-30-2023 08:30-0400 Diastolic blood pressure 82 mm[Hg] Manisha Marc Other [facility] Other 04-30-2023 08:30-0400 SaO2% (BldA) [Mass fraction] 100 % Manisha Marc Other [facility] Other 04-30-2023 08:30-0400 Systolic blood pressure 120 mm[Hg] Manisha Marc Other [facility] Other 04-29-2023 07:00-0400 Body height 162.56 cm Nely Veracode Other [facility] Other 04-29-2023 07:00-0400 Body mass index (BMI) [Ratio] 54.41 kg/m2 Nely [employer] Other [facility] Other 04-29-2023 07:00-0400 Body weight 143.79 kg Nely [employer] Other [facility] Other 03-25-2023 13:45-0400 Body height 162.56 cm [employer] Other [facility] Other 03-25-2023 13:45-0400 Body mass index (BMI) [Ratio] 55.45 kg/m2 [employer] Other [facility] Other 03-25-2023 13:45-0400 Body weight 146.56 kg [employer] Other [facility] Other 03-25-2023 13:45-0400 Diastolic blood pressure 57 mm[Hg] [employer] Other [facility] Other 03-25-2023 13:45-0400 Respiratory rate 18 /min [employer] Other [facility] Other 03-25-2023 13:45-0400 SaO2% (BldA) [Mass fraction] 97 % [employer] Other [facility] Other 03-25-2023 13:45-0400 Systolic blood pressure 106 mm[Hg] Celio Mullins Other [facility] Other 02-11-2023 12:15-0400 Body height 163.83 cm Casandra Hassan Other [facility] Other 02-11-2023 12:15-0400 Body mass index (BMI) [Ratio] 54.88 kg/m2 Casandra Hassan Other [facility] Other 02-11-2023 12:15-0400 Body temperature 98 [degF] Casandra Hassan Other [facility] Other 02-11-2023 12:15-0400 Body weight 147.33 kg Casandra Hassan Other [facility] Other 02-11-2023 12:15-0400 Diastolic blood pressure 85 mm[Hg] Casandra Hassan Other [facility] Other 02-11-2023 12:15-0400 Respiratory rate 18 /min Casandra Hassan Other [facility] Other 02-11-2023 12:15-0400 SaO2% (BldA) [Mass fraction] 98 % Casandra Hassan Other [facility] Other 02-11-2023 12:15-0400 Systolic blood pressure 128 mm[Hg] Casandra Hassan Other [facility] Other 07-13-2022 11:15-0500 Body height 163.83 cm Michelle Ernandez Other [facility] Other 07-13-2022 11:15-0500 Body mass index (BMI) [Ratio] 51.54 kg/m2 Michelle Oma Other [facility] Other 07-13-2022 11:15-0500 Body temperature 96.6 [degF] Michelle Oma Other [facility] Other 07-13-2022 11:15-0500 Body weight 138.35 kg Michelle Oma Other [facility] Other 07-13-2022 11:15-0500 Respiratory rate 18 /min Michelle Oma Other [facility] Other 07-13-2022 11:15-0500 SaO2% (BldA) [Mass fraction] 96 % Michelle Oma Other [facility] Other 07-06-2021 13:00-0500 Body height 163.83 cm Michelle Oma Other [facility] Other 07-06-2021 13:00-0500 Body mass index (BMI) [Ratio] 49 kg/m2 Michelle Oma Other [facility] Other 07-06-2021 13:00-0500 Body temperature 97.5 [degF] Michelle Oma Other [facility] Other 07-06-2021 13:00-0500 Body weight 131.54 kg Michelle Oma Other [facility] Other 07-06-2021 13:00-0500 SaO2% (BldA) [Mass fraction] 96 % Michelle Oma Other [facility] Other 06-17-2021 11:00-0400 Body height 163.83 cm Michelle Ernandez Other [facility] Other 06-17-2021 11:00-0400 Body mass index (BMI) [Ratio] 49.68 kg/m2 Michelle Haynesmond Other [facility] Other 06-17-2021 11:00-0400 Body temperature 98.3 [degF] Michelle Oma Other [facility] Other 06-17-2021 11:00-0400 Body weight 133.36 kg Michelle Ernandez Other [facility] Other 06-17-2021 11:00-0400 Respiratory rate 18 /min Michelle Ernandez Other [facility] Other 06-17-2021 11:00-0400 SaO2% (BldA) [Mass fraction] 96 % Michelle Ernandez Other [facility] Other 05-31-2021 13:50-0400 Body height 163.83 cm Michelle Ernandez Other [facility] Other 05-31-2021 13:50-0400 Body mass index (BMI) [Ratio] 50.36 kg/m2 Michelle Oma Other [facility] Other 05-31-2021 13:50-0400 Body temperature 97.8 [degF] Michelel Oma Other [facility] Other 05-31-2021 13:50-0400 Body weight 135.17 kg Michelle Ernandez Other [facility] Other 05-31-2021 13:50-0400 Diastolic blood pressure 90 mm[Hg] Michelle Ernandez Other [facility] Other 05-31-2021 13:50-0400 Respiratory rate 18 /min Michelle Ernandez Other [facility] Other 05-31-2021 13:50-0400 SaO2% (BldA) [Mass fraction] 98 % Michelle Ernandez Other [facility] Other 05-31-2021 13:50-0400 Systolic blood pressure 150 mm[Hg] Michelle Ernandez Other [place] [employer] Other Encounters Encounter Date Encounter Type Care Provider Facility Start: 11-15-2024 End: 11-15-2024 ambulatory Manisha Marc APRN Work Phone: [facility] Work Phone: Start: 11-15-2024 End: 11-15-2024 Patient encounter procedure Manisha Marc APRN Work Phone: [facility] Work Phone: Start: 11-10-2024 End: 11-10-2024 ambulatory CONSUELO IVAN Not Available Start: 11-09-2024 Registered Recurring Manisha Marc APRN Work Phone: [facility] Start: 11-09-2024 ambulatory Manisha Su ility:[facility] Start: 11-03-2024 Non-patient / Non-visit Sherry Marc APRN Work Phone: [facility] [employer] Work Phone: Start: 11-03-2024 End: 11-03-2024 Patient [...] / Non-visit Sherry Marc APRN [facility] Phone[facility] Work Phone: Start: 09-27-2024 End: 09-27-2024 ambulatory PHYSICIAN NO [facility] Work Phone: Start: 09-27-2024 End: 09-27-2024 Patient encounter procedure PHYSICIAN NO [facility] Physician [facility] Work Phone: Start: 08-28-2024 End: 08-28-2024 ambulatory PHYSICIAN NO [facility] Work Phone: Start: 08-28-2024 End: 08-28-2024 Patient encounter procedure PHYSICIAN NO [facility] Work Phone: Start: 08-27-2024 Registered Recurring PHYSICIAN NO [facility] Start: 08-24-2024 Registered Recurring PHYSICIAN NO [facility] Start: 08-24-2024 Immune system finding Manisha Marc APRN Work Phone: [facility] Start: 08-24-2024 Patient encounter status Manisha Marc APRN Work Phone: [facility] Start: 08-24-2024 End: 08-24-2024 ambulatory Manisha Parksgareth EMPLOYEE RELATIONS DIRECTOR Work Phone: [facility] Work Phone: Start: 08-24-2024 End: 08-24-2024 Encounter for antibody response examination Manisha Marc EMPLOYEE RELATIONS DIRECTOR Work Phone: [facility] [facility] Start: 08-24-2024 End: 08-24-2024 Encounter for general adult medical examination without abnormal findings Manisha Barclayfani EMPLOYEE RELATIONS DIRECTOR Work Phone: [facility] Start: 08-24-2024 End: 08-24-2024 Patient encounter procedure Manisha Barclayfani BECKER Work Phone: [facility] Physician [facility] Work Phone: Start: 08-19-2024 Non-patient / Non-visit Sherry willard Tari BECKER Work Phone: [facility] Physician [facility] Work Phone: Start: 08-19-2024 End: 08-19-2024 Admission to same day surgery center Manisha Barclayfani BECKER Work Phone: [facility] Work Phone: Start: 08-19-2024 End: 08-19-2024 ambulatory Manisha Barclayfani BECKER Work Phone: [facility] Work Phone: Start: 08-16-2024 End: 08-16-2024 Bamboo flowsheet Consuelo Love DIRECTOR INDUSTRIAL NURSING Work Phone: [address] Start: 08-16-2024 End: 08-16-2024 Bamboo flowsheet Consuelo Love DIRECTOR INDUSTRIAL NURSING Work Phone: [facility] [address] Start: 08-16-2024 End: 08-16-2024 ambulatory CONSUELO LOVE Not Available Start: 08-16-2024 End: 08-16-2024 Office outpatient visit 15 minutes Consuelo Love NP Work Phone: [facility] [address] Comment on above: Cognitive dysfunctio n (Primary Dx); ALEXX (obstructive sleep apnea); Attention deficit hyperactivity disorder (ADHD), unspecified ADHD type (CMS/HCC); Severe anxiety; Severe episode of recurrent major depressive disorder, without psychotic features (HCC) (CMS/HCC); Bipolar affective disorder, remission status unspecified (CMS/HCC); Episodic migraine (CMS/HCC) Start: 08-09-2024 End: 08-09-2024 ambulatory Manisha Marc Facility:[facility] Start: 08-09-2024 End: 08-09-2024 Departed Referred Manisha Marc APRN Work Phone: [facility] [place] Work Phone: Start: 08-09-2024 End: 08-09-2024 Patient encounter procedure Manisha Marc APRN Work Phone: [facility] Physician [facility] Work Phone: Start: 08-03-2024 Registered Recurring Manisha Marc APRN Work Phone: [facility] Start: 07-12-2024 End: 07-12-2024 Patient encounter procedure Mario Mcknight PhD Work Phone: [facility] Comment on above: ADHD (attention defi cit hyperactivity disorder), inattentive type (CMS/HCC) (Primary Dx); ALEXX (obstructive sleep apnea); Bipolar affective disorder, remission status unspecified (CMS/HCC); Other chronic pain; Severe anxiety; Severe episode of recurrent major depressive disorder, without psychotic features (HCC) (CMS/HCC) Start: 07-12-2024 End: 07-12-2024 ambulatory MARKO OSCAR Not Available Start: 06-29-2024 Non-patient / Non-visit Sherry Marc APRN Work Phone: [facility] Physician [facility] Work Phone: Start: 06-28-2024 End: 06-28-2024 Bamboo flowsyarely Mcknight PhD Work Phone: [facility] Start: 06-28-2024 End: 06-28-2024 Bamboo flowsheet Mario Mcknight PhD Work Phone: [facility] Start: 06-28-2024 End: 06-28-2024 Patient encounter procedure Mario Mcknight PhD Work Phone: [facility] Comment on above: ADHD (attention defi cit hyperactivity disorder), inattentive type (CMS/HCC) (Primary Dx); Cognitive impairment; ALEXX (obstructive sleep apnea); Bipolar affective disorder, remission status unspecified (CMS/HCC); Other chronic pain Start: 06-28-2024 End: 06-28-2024 ambulatory MARIO MCKNIGHT Not Available Start: 06-25-2024 End: 06-25-2024 Departed Referred Manisha Marc APRN Work Phone: [facility] [place] Work Phone: Start: 06-25-2024 End: 06-25-2024 ambulatory Manisha Marc APRN Work Phone: [facility] Work Phone: Start: 06-25-2024 End: 06-25-2024 Patient encounter procedure Manisha Marc APRN Work Phone: [facility] Physician Group-[facility] Work Phone: Start: 06-23-2024 ambulatory Facility:[facility] [place] Start: 06-23-2024 End: 06-23-2024 Bamboo flowsheet Gwen Cox DO [facility] Phone[facility] Start: 06-23-2024 End: 06-23-2024 Bamboo flowsyarely Cox DO [facility] Phone: [facility] Start: 06-23-2024 End: 06-23-2024 Office outpatient new 45 minutes Gwen Cox DO Work Phone: [facility] [address] Comment on above: Cognitive impairment (Primary Dx); Anxiety Start: 06-23-2024 End: 06-23-2024 ambulatory GWEN COX Not Available Start: 06-21-2024 End: 06-21-2024 ambulatory ROSITA Marc Work Phone: [facility] Work Phone: Start: 06-21-2024 End: 06-21-2024 Patient encounter procedure ROSITA Marc Work Phone: [facility] Physician [facility] Work Phone: Start: 06-18-2024 Non-patient / Non-visit ROSITA Marc Work Phone: [facility] Physician [facility] Work Phone: Start: 06-15-2024 End: 06-15-2024 Departed Referred ROSITA Marc Work Phone: [facility] [place] Work Phone: Start: 06-15-2024 End: 06-15-2024 ambulatory ROSITA Marc Work Phone: [facility] Work Phone: Start: 06-15-2024 End: 06-15-2024 Patient encounter procedure ROSITA Marc Work Phone: [facility] Physician [facility] [place] Work Phone: Start: 06-07-2024 Non-patient / Non-visit ROSITA Marc Work Phone: [facility] Physician [facility] Work Phone: Start: 05-13-2024 Registered Recurring ROSITA Marc Work Phone: [facility] Start: 04-21-2024 End: 04-21-2024 ambulatory ROSITA Manishaamita Marc Work Phone: [facility] Work Phone: Start: 04-21-2024 End: 04-21-2024 Patient encounter procedure EMPLOYEE RELATIONS DIRECTORBryon ThaoManisha Diyar Work Phone: [facility] Physician [facility] Work Phone: Start: 04-15-2024 Non-patient / Non-visit ROSITA Toshia kolbyamita Tari Work Phone: [facility] Work Phone: Start: 04-12-2024 Non-patient / Non-visit ROSITA Keaner Work Phone: [facility] Work Phone: Start: 04-03-2024 Registered Recurring EMPLOYEE RELATIONS DIRECTORBryon Marc Work Phone: [facility] Start: 03-16-2024 End: 03-16-2024 ambulatory MELA ANDERSON Not Available Start: 01-19-2024 End: 01-19-2024 ambulatory Bud Combs MD Facility:[facility] Start: 01-01-2024 Registered Recurring EMPLOYEE RELATIONS DIRECTORBryon Marc Work Phone: [facility] Start: 11-26-2023 End: 11-26-2023 ambulatory ROSITA Marc Work Phone: [facility] Work Phone: Start: 11-26-2023 End: 11-26-2023 Patient encounter procedure ROSITA Colladofer Tari Work Phone: [facility] Physician [facility] Work Phone: Start: 11-03-2023 End: 11-03-2023 ambulatory ROSITA Marc Work Phone: [facility] Work Phone: Start: 11-03-2023 End: 11-03-2023 Patient encounter procedure ROSITA Thaonifer Tari Work Phone: [facility] Physician [facility] Work Phone: Start: 10-30-2023 Non-patient / Non-visit EMPLOYEE RELATIONS DIRECTORBryon Marc Work Phone: [facility] Work Phone: Start: 10-08-2023 End: 10-08-2023 ambulatory ROSITA Marc Work Phone: [facility] Work Phone: Start: 10-08-2023 End: 10-08-2023 Patient encounter procedure ROSITA Marc Work Phone: [facility] Work Phone: Start: 10-06-2023 Non-patient / Non-visit ROSITA Marc Work Phone: [facility] Work Phone: Start: 10-06-2023 End: 10-06-2023 ambulatory Bud Combs MD Facility:[facility] Start: 10-01-2023 End: 10-01-2023 ambulatory ROSITA Marc Work Phone: [facility] Work Phone: Start: 10-01-2023 End: 10-01-2023 Patient encounter procedure ROSITA Marc Work Phone: [facility] Physician [facility] Work Phone: Start: 09-10-2023 Registered Recurring ROSITA Marc Work Phone: [facility] Start: 09-08-2023 End: 09-08-2023 ambulatory Bud Combs MD Facility:[facility] Start: 09-03-2023 End: 09-03-2023 Patient encounter procedure ROSITA Marc Work Phone: [facility] Physician Group- Start: 08-19-2023 End: 08-19-2023 ambulatory Nely Cruz Other [facility] [employer] Other Start: 08-19-2023 IBT FOR OBESITY GROU P 2-10 30M Nely Cruz [facility] Start: 08-19-2023 Registered Recurring ROSITA Marc Work Phone: [facility] Work Phone: Start: 08-19-2023 End: 08-19-2023 Patient encounter procedure ROSITA Marc Work Phone: [facility] Physician Group-[facility] Work Phone: Start: 08-14-2023 Registered Recurring ROSITA Marc Work Phone: [facility] Start: 08-13-2023 End: 08-13-2023 ambulatory Manisha Marc Other [facility] [employer] Other Start: 08-13-2023 Office outpatient vi sit 15 minutes Manisha Marc [facility] Start: 08-13-2023 End: 08-13-2023 Patient encounter procedure ROSITA Marc Work Phone: [facility] Physician Group-[facility] Work Phone: Start: 07-21-2023 End: 07-21-2023 ambulatory Bud Combs MD Facility:[facility] Start: 07-19-2023 End: 07-19-2023 ambulatory EMPLOYEE RELATIONS DIRECTORBryon Marc Work Phone: [facility] Work Phone: Start: 07-19-2023 End: 07-19-2023 Patient encounter procedure ROSITA Marc Work Phone: [facility] [employer] [facility] Start: 07-15-2023 End: 07-15-2023 ambulatory Celio Mullins Other [facility] Other Start: 07-15-2023 Follow-up encounter Celio Mullins [facility] Start: 07-15-2023 End: 07-15-2023 Patient encounter procedure ROSITA Marc Work Phone: [facility] Physician Group-[facility] Work Phone: Start: 07-07-2023 End: 07-07-2023 ambulatory Michelle Ernandez Other [facility] Other Start: 07-07-2023 Office outpatient vi sit 15 minutes Michellenawaf Ernandez [facility] Start: 07-07-2023 End: 07-07-2023 Patient encounter procedure ROSITA Marc Work Phone: [facility] Physician Group-[facility] Work Phone: Start: 07-03-2023 Registered Recurring ROSITA Marc Work Phone: [facility] Start: 07-03-2023 End: 07-03-2023 ambulatory EMPLOYEE RELATIONS DIRECTORBryon Marc Work Phone: [facility] Work Phone: Start: 07-03-2023 End: 07-03-2023 Patient encounter procedure ROSITA Marc Work Phone: [facility] [place] Work Phone: Start: 07-01-2023 End: 07-01-2023 Patient encounter procedure EMPLOYEE RELATIONS DIRECTOR Manisha Marc Work Phone: [facility] [place] Work Phone: Start: 06-29-2023 End: 06-29-2023 ambulatory Michelle Oma Other [facility] Other Start: 06-29-2023 Office outpatient vi sit 15 minutes Michelle Oma [facility] Start: 06-17-2023 Registered Recurring EMPLOYEE RELATIONS DIRECTOR Layla Marc Work Phone: [facility] Work Phone: Start: 06-11-2023 End: 06-11-2023 ambulatory Manisha Marc Other [facility] Other Start: 06-11-2023 Office outpatient vi sit 25 minutes Manisha Marc [facility] Start: 05-06-2023 End: 05-06-2023 ambulatory Casandra Hassan Other [facility] Other Start: 05-06-2023 Office outpatient vi sit 10 minutes Casandra Hassan [facility] Start: 05-01-2023 End: 05-01-2023 ambulatory Manisha Marc Other [facility] Other Start: 05-01-2023 Telephone encounter Manisha Rico her [facility] Start: 04-30-2023 End: 04-30-2023 ambulatory Manisha Marc Other [facility] Other Start: 04-30-2023 Encounter for genera l adult medical examination without abnormal findings Manisha Marc [facility] Start: 04-30-2023 Periodic preventive med est patient 18-39 yrs Manisha Marc [facility] Start: 04-29-2023 ([facility] WMNI) WMN Init ial Provider Nely Luis Antoniohari [facility] Start: 04-29-2023 End: 04-29-2023 ambulatory Nely Cruz Other [facility] Other Start: 03-25-2023 End: 03-25-2023 ambulatory Celio Mullins Other [facility] Other Start: 03-25-2023 Nutrition therapy Celio Mullins [facility] Start: 03-25-2023 Telephone encounter Celio Owens [facility] Start: 03-14-2023 End: 03-14-2023 ambulatory Nelybryon Cruz Other [facility] Other Start: 03-14-2023 Telephone encounter Nely Cruz [facility] Start: 02-11-2023 End: 02-11-2023 ambulatory Casandra Hassan Other [facility] Other Start: 02-11-2023 Office outpatient vi sit 15 minutes Casandra Hassan [facility] [place] Start: 12-31-2022 End: 01-01-[address] MARKO OSCAR . Facility:[facility] Start: 11-26-2022 End: 11-27-[address] MARKO OSCAR . Facility:[facility] Start: 11-08-2022 End: 11-09-[address] THADDEUS ROD Facility:[facility] Start: 10-28-2022 End: 10-28-[address] MARKO OSCAR . Facility:[facility] Start: 07-13-2022 End: 07-13-2022 ambulatory Michelle Ernandez Other [facility] Other Start: 07-13-2022 Office outpatient vi sit 15 minutes Michelle Ernandez [facility] [place] Start: 03-07-2022 End: 03-08-[address] THADDEUS ROD Facility:[facility] Start: 01-25-2022 Encounter for genera l adult medical examination without abnormal findings DR THADDEUS ROD [facility] Start: 01-21-2022 End: 01-22-[address] THADDEUS ROD Facility:[facility] Start: 01-21-2022 End: 01-22-2022 Encounter for general adult medical examination without abnormal findings DR THADDEUS ROD Facility:[facility] Start: 07-06-2021 End: 07-06-2021 ambulatory Michellenawaf Ernandez Other [place] [employer] Other Start: 07-06-2021 Office outpatient vi sit 15 minutes Michelle Oma [facility] Start: 06-17-2021 Office outpatient vi sit 15 minutes Michelle Oma [facility] Start: 05-31-2021 Office outpatient vi sit 25 minutes Michelle Oma [facility] Start: 08-27-2018 End: 08-27-2018 ambulatory BRENT KINNEY Facility:[facility] Procedures Date Procedure Procedure Detail Performing Clinician Start: 11-03-2024 Urine test visual color cmprsn meths Marko Celestina DO Work Phone: Start: 08-19-2024 Esophagogastroduodenoscopy Manisha chamberlain APRN Work Phone: Start: 08-09-2024 Urine culture Manisha Marc APRN Work Phone: Start: 06-25-2024 Urine culture Manisha Marc APRN Work Phone: Start: 06-15-2024 Bacteria identified in Urine by Culture EMPLOYEE RELATIONS DIRECTOR Manisha Marc Work Phone: Start: 06-15-2024 Urine culture Manisha Marc APRN Work Phone: Start: 11-03-2023 Microscopic observation [Identifier] in Cervix by Cyto stain Gwen Cox DO Work Phone: Start: 10-08-2023 MRI of head EMPLOYEE RELATIONS DIRECTORBryon Marc Work Phone: Start: 05-31-2021 Piperacillin/tazobactam Michelle Ernandez Other Start: 08-27-2018 extraction, erupted tooth or exposed root (elevation and/or forceps removal) BRENT MENDOZACONIS Start: 08-27-2018 removal of impacted tooth - soft tissue BRENT MENDOZACONIS Start: 08-27-2018 Urine test visual color cmprsn meths BRENT KINNEY Plan of Treatment Date Care Activity Detail Author Start: 10-29-2027 Screening for malign ant neoplasm of cervix [facility] Start: 11-02-2026 Screening for malign ant neoplasm of cervix Pap Smear [facility] Start: 11-09-2025 End: 11-09-2025 Patient encounter procedure 11/09/2025 3:00 PM EDT Office Visit [facility] [address] [place] [id number] Marko Oscar, DO [address], [place] [id number] [facility] Start: 11-30-2024 End: 11-30-2024 Professional / ancillary services management 11/30/2024 1:00 PM EDT Ancillary Procedure [facility] [address] [place] [id number] [facility] Start: 11-09-2024 End: 11-09-2024 Patient encounter procedure [address] Start: 11-03-2024 End: 11-03-2025 US Pelvis US Pelvis w/ TV Imaging Routine PCOS (polycystic ovarian syndrome) Expected: 11/03/2024, Expires: 11/03/2025 [facility] Comment on above: Expected: 11/03/2024 , Expires: 11/03/2025 Start: 11-02-2024 End: 11-02-2024 Patient encounter procedure 11/02/2024 11:00 AM EDT Office Visit [facility] [address] [place] [phone] Marko Oscar, DO [address], [place] [id number] [facility] Start: 08-19-2024 [facility] Start: 08-16-2024 End: 08-16-2024 Patient encounter procedure 08/16/2024 11:20 AM EST [facility] [address] [place] [address], [place] [address] Consuelo Love, NEVIN [address] [place] [phone] [facility] Start: 07-12-2024 End: 07-12-2024 Patient encounter procedure 07/12/2024 8:00 AM EST [facility] [address] [place] [address] [facility] Start: 06-28-2024 End: 06-28-2024 Patient encounter procedure [facility] Comment on above: Cognitive impairment Start: 06-25-2024 Bacteria identified in Urine by Culture Urine Culture [facility] Start: 06-25-2024 Urine culture [facility] Start: 06-23-2024 End: 06-23-2024 Patient encounter procedure 06/23/2024 12:30 PM EST Office Visit [facility] [address] [phone] Gwen Cox DO [address] [place] [address] Arrived [facility] Comment on above: Arrived Start: 06-21-2024 Patient referral [facility] Work Phone: Start: 06-15-2024 Bacteria identified in Urine by Culture Urine Culture [facility] Start: 06-15-2024 [facility] Start: 06-15-2024 Urine culture [facility] Start: 04-18-2024 Influenza vaccination Influenza Vacc ine (#1) [facility] CHLAMYDIA TRACHOMATI S (GENITO/STI) CHLAMYDIA TRACHOMATIS (GENITO/STI) Lab Routine Exposure to STD Ordered: 11/03/2024 [facility] Comment on above: Ordered: 11/03/2024 Chlamydia trachomati s DNA [Presence] in Unspecified specimen by SURI with probe detection [facility] Comprehensive metabo lic 2000 panel - Serum or Plasma [facility] CT Neck [facility] Cervical or vaginal smear or scraping study Pap Smear Pathology and Cytology Routine Well woman exam with routine gynecological exam Ordered: 11/03/2024 [facility] Work Phone: Comment on above: Ordered: 11/03/2024 Holter monitor study [facility] Human papilloma viru s DNA [Presence] in Unspecified specimen by Probe with amplification HPV DNA probe, amplified Microbiology Routine Well woman exam with routine gynecological exam Ordered: 11/03/2024 [facility] Comment on above: Ordered: 11/03/2024 MR Unspecified body region [facility] Neisseria gonorrhoea e DNA [Presence] in Unspecified specimen by SURI with probe detection [facility] Neisseria gonorrhoea e DNA [Presence] in Unspecified specimen by SURI with probe detection Neisseria gonorrhea DNA probe, direct Lab Routine Exposure to STD Ordered: 11/03/2024 [facility] Comment on above: Ordered: 11/03/2024 Patient Education [facility] Work Phone: Patient referral [facility] Work Phone: SURESWAB(R) ADVANCED VAGINITIS PLUS, TMA SURESWAB(R) ADVANCED VAGINITIS PLUS, TMA Pathology and Cytology Routine Vaginal discharge Ordered: 11/03/2024 [facility] Comment on above: Ordered: 11/03/2024 Trichomonas vaginali s DNA [Presence] in Unspecified specimen by SURI with probe detection [facility] Urine culture [facility] Immunizations Immunization Date Immunization Notes Care Provider Lillie rogers 03-03-2021 Do not use COVID-19 Pfizer 2 dose Manisha Marc Other [facility] 02-10-2021 Do not use COVID-19 Pfizer 2 dose Manisha Marc Other [facility] 08-03-2018 Toradol per 15 mg Michelle Sofia ond Other [facility] Other Payers Date Payer Category Payer Self-pay [id number] 2022 Private Health Insurance 1990 Unknown [id number] [id number]. 732 1991 Unknown [id number] 2.16.840.1.209894.3.579.2. 593 1991 Unknown [id number] 2.16.840.1.920365.3.579.2. 593 1991 Unknown [id number] 2.16.840.1.130388.3.579.2. 593 1991 Unknown [id number] 2.16.840.1.145089.3.579.2. 593 1991 Unknown [id number] 2.16.840.1.812933.3.579.2. 593 1991 Unknown [id number] 2.16.840.1.401921.3.579.2. 593 1991 Unknown [id number] 2.16.840.1.406042.3.579.2. 196 1991 Unknown [id number] 2.16.840.1.053397.3.579.2. 196 1991 Unknown [id number] 2.16.840.1.279497.3.579.2. 196 1991 Unknown [id number] 2.16.840.1.883675.3.579.2. 196 1991 Unknown [id number] 2.16.840.1.128241.3.579.2. 1259 1991 Unknown [id number] 2.16.840.1.180504.3.579.2. 1259 1991 Unknown [id number] 2.16.840.1.259497.3.579.2. 1259 1991 Unknown [id number] 2.16.840.1.676052.3.579.2. 1259 1991 Unknown [id number] 2.16.840.1.338557.3.579.2. 9 1991 Unknown [id number] 2.16.840.1.036219.3.579.2. 1259 1991 Unknown [id number] 2.16.840.1.370177.3.579.2. 1259 1959 Medicaid [id number] 1959 Unknown [id number] Unknown [facility] [[email or web address]] [id number] Unknown [id number] 2.16.840.1.435734.3.579.2. 531 Unknown [id number] 2.16.840.1.237928.3.579.2. 531 Unknown [id number] 2.16.840.1.262899.3.579.2. 531 Unknown [id number] 2.16.840.1.686204.3.579.2. 531 Unknown [id number] 2.16.840.1.125877.3.579.2. 531 Social History Date Type Detail Facility Unknown if ever smoked [facility] Other Start: 03-11-2023 End: 03-16-2024 Sex Assigned At [place] Other Start: 12-07-2021 End: 08-19-2024 Tobacco smoking status NHIS Never smoked tobacco (finding) [facility] Start: 1990 Sex Assigned At Female F [facility] Start: 05-31-2024 End: 11-03-2024 Alcoholic beverage intake Not Asked [facility] Start: 07-24-2023 End: 03-16-2024 History of Social function [facility] Start: 03-11-2023 Gender identity Identifies as female gender (finding) [facility] Start: 06-25-2024 End: 11-15-2024 Sex Female (finding) [facility] Goals Date Patient Goal Desired Activity [...] nursing note reviewed. Exam conducted with a correction warden present. Vitals: Estimated body mass index is [...] Marko Oscar DO documented in this encounter [facility] 08-24-2024 Evaluation note Diagnosis Onset Date Resolution [...] head and neck acute November 15 1:32pm [facility] Work Phone: 1([phone]) 551-948301-02-2025 [place] [address] Colonoscopy Procedure Report Signed Patient: Ashly Mehta MR#: [id number] : 1990 Acct:[id number] Age/Sex: 33 / F Adm Date: 5 Loc: Room: Type: [facility] Attending Dr: Hilaria Burgos DO Copies to: [...] slowly withdrawn with the findings as below. Claude bowel prep score was Fair. Findings: The [...] Burgos DO 08/19/24 0859 Signed By: 08/19/[address] [place], [place] 5234201-02-2025 [place] [address] EGD Procedure Note Signed Patient: Ashly Mehta MR#: [id number] : 1990 Acct:[id number] Age/Sex: 33 / F Adm Date: 5 Loc: Room: Type: [facility] Attending Dr: Hilaria Burgos DO Copies to: [...] DO 08/19/24 0859 Signed By: 08/19/24 1009 [facility]01-02-2025 [place] [address] Gastroenterology H&P Signed Patient: Ashly Mehta MR#: [id number] : 1990 Acct:[id number] Age/Sex: 33 / F Adm Date: 5 Loc: Room: Type: [facility] Attending Dr: Hilaria Burgos DO Copies to: [...] DO 08/19/24 0859 Signed By: 08/19/24 0954 [facility]12-30-2024 History of Present illness Narrative * [...] her psychiatrist plans to get her a social work case manager soon. The patient reports difficulty [...] wrist extensors , wrist flexor , and body man strength 5/5. LUE strength deltoid , biceps , triceps , wrist extensors , wrist flexor , and body man strength 5/5. RLE strength iliopsoas, quadriceps, tibialis [...] reflex 2+. LLE knee reflex 2+. Coordination: Itexql-ht-afeb testing normal. Rapid alternating movements are normal. Gait: Normal. Review and summary of old records: Neuropsychological evaluation at [facility] on 07/12/2024: Current neuropsychologicalevaluation demonstrates, [...] her psychiatrist to establish care with a social work case manager, and I believe this is [...] NP [facility] documented in this encounterMadison Medical [id number] Evaluation note* Diagnosis Onset Date Resolution Status [...] 10:57am Cellulitis acute August 28, 2024 1:44pm [facility] Work Phone: 1(349) 844-610411-25-2024 History of Present illness Narrative* Mario Mcknight, [...] any history of alcohol/substance abuse or smoking. [place] language Chadian. Completed an associate's degree and was 24 credits shy of a bachelor's degree. Struggled academically and with attention. 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 Responsible for tending to the needs [...] design >16th %ile. Motor/Speed of Processing: Right-handed. Cyanide Pot Hardener strength 24th %ile with right- hand, 62nd [...] Learning of a word list 31st %ile (9-8-12-13-13), delayed recall 16th %ile. Recognition discriminability 69th [...] of this individual. Please contact me with [employer] at [phone]. documented in this encounterMadison Medical [id number] History of Present illness Narrative* Mario Mcknight, [...] any history of alcohol/substance abuse or smoking. [place] language Chadian. Completed an associate's degree and was 24 credits shy of a bachelor's degree. Struggled academically and with attention. 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 Responsible for tending to the needs [...] of this individual. Please contact me with [employer] at [phone]. documented in this [facility]11-06-2024 History of Present illness Narrative* Gwen Cox, [...] disorder (CMS/HCC) Coitus painful for female Depression ([facility]/HCC) Dysthymia ([facility]/HCC) Genital herpes in women GERD (gastroesophageal reflux disease) Hormone imbalance Hypertension (CMS/HCC) Hypertension ([facility]/HCC) Infertility, female Memory changes Menorrhagia Morbid obesity with BMI of 50.0-59.9, adult ([facility]) Pain of ovary PCOS (polycystic ovarian syndrome) Pre-diabetes Right ovarian cyst Seasonal affective disorder ([facility]/HCC) Secondary amenorrhea Seizure disorder ([facility]/HCC) Past Surgical History: Procedure Laterality Date CHOLECYSTECTOMY [...] , wrist extensors , wrist flexor , body man strength 5/5. LUE Strength deltoid , biceps , triceps , wrist extensors , wrist flexor , body man strength 5/5. RLE Strength illopsoas, quadriceps, tibialis [...] reflex 2+ . Valiente's sign negative. Coordination: Mmbvab-bo-ytns testing and rapid alternating movements are normal [...] plan, and return instructions documented in this [facility]10-29-2024 Evaluation note* Diagnosis Onset Date Resolution Status [...] Excessive sweating acute Decemb er 2023 3:46pm [facility] Work Phone: 1(776) 696-523910-29-2024 Evaluation note* Diagnosis Onset Date Resolution Status [...] status unknown deleted August 24, 2024 10:57am [facility] Work Phone: 1(515) 654-978310-29-2024 Evaluation note* Diagnosis Onset Date Resolution Status [...] Wellness examination acute Al campuzano 2024 10:57am [facility] Work Phone: 1(216) 944-118109-04-2024 Evaluation note* Diagnosis Onset Date Resolution Status [...] tract infection) acute June 21, 2024 11:13am [facility] Work Phone: 1(486) 946-730109-04-2024 Evaluation note* Diagnosis Onset Date Resolution Status [...] 11:13am Dysuria acute June 25, 2024 9:05am [facility] Work Phone: 1(522) 295-246301-02-2024 Evaluation note* Encounter Date Diagnosis Assessment Notes Treatment Notes Treatment Clinical Notes Aug, Obesity, unspecified classification, unspecified obesity type, unspecified whether serious comorbidity present (ICD-10 - E66.9) Aug, BMI 50.0-59.9, adult (ICD-10 - Z68.43) Aug, Other Summary of Visi t: (A) Importnace of planning to simplify meals (B) Deconstructed Meals (C) Sharing meal ideas (D) Plate method for meal planning ; grocery shortcuts Look[facility] Other 12-27-2023 Evaluation note* Encounter Date Diagnosis [...] You have been given relevant education handouts. Lookback Other 11-28-2023 Evaluation note* Encounter Date Diagnosis [...] voice recognition software. Please excuse errors in bull fiddle player. Jun, Dietary surveillance and counseling (ICD-10 - [...] metformin 1000 mg total daily, managed by [facility] Jun, Asthma (ICD-10 - J45.909) Jun, Migraine (ICD-10 - G43.909) Jun, Primary hypertension (ICD-10 - I10) Currently on pharmacotherapy Potential for overtreatment given lightheadedness Jun, Other An additional 9 minutes was spent counseling the patient on behavior modification including proper nutrition and physical activity. Lookback Other 11-20-2023 Evaluation note* Encounter Date Diagnosis [...] until you feel better. You may take cfce-inm-wagjtpr Imodium for diarrhea as needed. Avoid dairy foods as well as greasy fried foods. Follow-up with your physician if no improvement in 2 to 3 days. May return to work on Jun, Diarrhea, unspecified type (ICD-10 - R19.7) Diarrhea: adult home care material was printed Lookback Other 11-12-2023 Evaluation note* Encounter Date Diagnosis [...] to 3-day Jun, Bronchitis (ICD-10 - J40) [facility] Other 10-25-2023 Evaluation note* Encounter Date Diagnosis Assessment Notes Treatment Notes Treatment Clinical Notes May, Degenerative lumbar disc (ICD-10 - M51.36) L4-5 Pt would like a referral to pain management regarding her chronic back pain. Her last x-ray of the lumbar spine was completed 10/2022 at [facility]--reviewed and in scanned documents. Referral placed. [...] disorder (ICD-10 - F31.81) Referral placed to [facility] for medication mangement. Lookback Other 09-19-2023 Evaluation note* Encounter Date Diagnosis Assessment Notes Treatment Notes Treatment Clinical Notes Apr, Exposure to head lice (ICD-10 - Z20.7) Discussed with patient exam is without any signs of current lice infection. May return to work tomorrow. Patient completed next treatment yesterday. Patient verbalized understanding. Lookback Other 09-14-2023 Evaluation note* Encounter Date Diagnosis Assessment Notes Treatment Notes Treatment Clinical Notes Apr, Primary hypertension (ICD-10 - I10) Lookback Other 09-13-2023 Evaluation note* Encounter Date Diagnosis [...] (ICD-10 - R73.01) Will obtain records from [facility] for most recent labs. Patient [...] Low back pain, unspecified (ICD-10 - M54.50) Lookback Other 09-12-2023 Evaluation note* Encounter Date Diagnosis [...] 2) Aim for < 45 g carb/meal Lookback Other 08-08-2023 Evaluation note* Encounter Date Diagnosis [...] voice recognition software. Please excuse errors in bull fiddle player. Mar, Dietary surveillance and counseling (ICD-10 - [...] as sweet tea, replace ice cream with Tunisian yogurt, use protein shake in the a.m. [...] with the patient, and documenting clinical information. Lookback Other 06-27-2023 Evaluation note* Encounter Date Diagnosis [...] 7 days, sooner if significantly worsening symptoms. Lookback Other 11-26-2022 Evaluation note* Encounter Date Diagnosis [...] 3 days. Off work today and tomorrow Lookback Other 11-19-2021 Evaluation note* Encounter Date Diagnosis [...] Patient care instructions given in writting by [employer] document. Lookback Other 10-31-2021 Evaluation note* Encounter Date Diagnosis [...] Patient care instructions given in writting by [employer] document. Lookback Other 10-14-2021 Evaluation note* Encounter Date Diagnosis Assessment Notes Treatment Notes Treatment Clinical Notes May, Dysuria (ICD-10 - R30.0) May, Urinary tract infection, site not specified (ICD-10 - N39.0) May, Hematuria, unspecified (ICD-10 - R31.9) Lookback Other Evaluation noteNo InformationNort C[employer] Other Evaluation noteNo assessment information available [facility] Work Phone: evaluation note* Diagnosis Onset Date Resolution Status Dietary surveillance and counseling acute Exercise counseling acute Food insecurity acute PCOS (polycystic ovarian syndrome) acute Prediabetes acute Severe obesity (BMI >= 40) a [facility] Work Phone: Evaluation note* Diagnosis Onset Date Resolution Status Dietary surveillance and counseling acute Exercise counseling acute Food insecurity acute PCOS (polycystic ovarian syndrome) acute Prediabetes acute Severe obesity (BMI >= 40) a cute Lightheadedness acute Menorrhagia acute Palpitations acute [facility] Work Phone: evaluation note* Diagnosis Onset Date Resolution Status Dietary surveillance and counseling acute Exercise counseling acute Food insecurity acute PCOS (polycystic ovarian syndrome) acute Prediabetes acute Severe obesity (BMI >= 40) a cute Lightheadedness acute Menorrhagia acute Palpitations acute Dietary surveillance and counseling acute Exercise counseling acute Severe obesity (BMI >= 40) a [facility] Work Phone: evaluation note* Diagnosis Onset Date Resolution Status Lightheadedness acute Menorrhagia acute Palpitations acute Dietary surveillance and counseling acute Exercise counseling acute Severe obesity (BMI >= 40) a [facility] Work Phone: evaluation note* Diagnosis Onset Date Resolution Status Aphasia acute History of seizures acute Memory loss acute Migraine acute [facility] Work Phone: evaluation note* Diagnosis Onset Date Resolution Status Aphasia acute Apnea acute Fatigue acute History of seizures acute Loud snoring acute Memory loss acute Migraine acute Morbid obesity acute Acute UTI acute [facility] Work Phone: Evaluation note* Diagnosis Onset Date Resolution Status Aphasia acute Apnea acute Fatigue acute History of seizures acute Loud snoring acute Memory loss acute Migraine acute Morbid obesity acute Acute UTI acute Fatty liver disease, nonalcoholic acute Frequent UTI acute UTI (urinary tract infection) acute [facility] Work Phone: Evaluation note* Diagnosis Cognitive [...] HealthcareHistory and physical note Author Hilaria Burgos [facility] Note Date/Time August 19, 2024 9: 54am [facility] [address] [place] [address] Gastroenterology H&P Signed Patient: Ashly Mehta MR#: [id number] : 1990 Acct:[id number] Age/Sex: 33 / F Adm Date: 5 Loc: Room: Type: [facility] Attending Dr: Hilaria Burgos DO Copies to: Hilaria Burgos, DO Manisha Marc, ROSITA, CEMENT MASON APPRENTICE~ Date of Service: 08/19/2024 HISTORY & PHYSICAL: [...] <Electronically signed by Hilaria Burgos DO> 08/19/24 0925 [facility] Work Phone: Hisbgfj general Narrative - Reported* Type Description Date Medical History Asthma Medical History Blood transfusion Medical History Seizure Disorder Medical History migraine headache w/out Aura Medical History herpes Medical History PCOS Medical History hypertensive heart disease Medical History tachycardia Medical History pre diabetes Surgical History Colposcopy Surgical History cholecystectomy Surgical History wisdom teeth Hospitalization History Pneumonia Hospitalization History Hospitalized for blood l oss 2010 Lookback Other Hiskryr general Narrative - Reported* Type Description Date [...] History Hospitalized for blood l oss 2010 Lookback Other history general Narrative - Reported* Type [...] History Hospitalized for blood l oss 2010 Lookback Other history general Narrative - Reported* Type [...] History Hospitalized for blood l oss 2010 Lookback Other history general Narrative - Reported* Type [...] History Hospitalized for blood l oss 2010 Lookback Other history general Narrative - Reported* Type [...] History Hospitalized for blood l oss 2010 Lookback Other History general Narrative - Reported* Type [...] History Hospitalized for blood l oss 2010 Lookback Other Hospital Discharge instructionsAmbulatory Orders* Referral to Gastroenterology Time Frame: 06/21/24, Location: None Selected * Referral to Urology Time Frame: 06/21/24, Location: None Selected [facility] Work Phone: Reason for referral (narrative)* Reason *FU 06/20 would sherif garnett referral to pscyiatrist -- was recently diagnosed with bipolar and would like medication management. Diagnosis 1 Bipolar 2 disorder ( F31.81) Referral Organization [facility] Caterna sharan Referring Provider First Name Manisha Referring Provider Last Name Charlyacher Referring Provider Specialty Nurse Pract ernesto Referred Organization [facility] and [facility] Referred Address [address] ,[place], [place],[address] Referred Provider Specialty Psychiatry Referral Priority Routine General Notes Paola Henderson 01:25:30 PM >received today, not sure if [facility] does medication management, waiting for notes to be locked Paola Henderson 06/13/2023 10:34:39 AM >notes locked, referral faxed Clinical Notes p: [phone] f: [phone] [place] [facility] Reason *FU 06/20 would sherif garnett referral to pain management for other options for pain control for back pain Diagnosis 1 Degenerative lumbar disc (M51.36) Referral Organization [facility] Caterna ScreenMedixjose eduardo Referring Provider First Name Manisha Referring Provider Last Name Charlyachetad Referring Provider Specialty Nurse Prachari orozoc Referred Organization [facility] Referred Provider Yrn Parsons Referred Address [address] [facility],[place],[address] Referred Provider Specialty Pain Medicin e Referral Priority Routine General Notes KerriGordon willardya 01:21:23 PM >received today, waiting for notes to be locked Paola Henderson 06/13/2023 10:25:26 AM >notes locked, referral faxed Clinical Notes f: [phone] Lookback Other Reason for visit Narrative* Consultation (Routine) - Closed Specialty Diagnoses / Procedures Referred By Ela noriega Referred To Contact Neurology Diagnoses Aphasia Personal history of other specified conditions Other amnesia Procedures DE OFFICE/OUTPATIENT [facility] MDM 30 MINUTES Manisha Marc, DIRECTOR INDUSTRIAL NURSING [address] [facility] [address] [address] [place] [address] Phone: tel: fax: Sugey Dinero MD [address] [place] [address] Phone: tel: fax: Referral ID Status Reason Start Date Expiration Date V isits Requested Visits Authorized [id number] Closed Consult and Treat 05/28/2024 11/24/2024 1 1 [facility] for [facility] Narrative* Consultation (Routine) - Closed Specialty Diagnoses / Procedures Referred By Ela noriega Referred To Contact Psychology Diagnoses Cognitive impairment Procedures DE [facility]ICE[facility] MDM 60 MINUTES Gwen Cox DO [address] [place] [address] Phone: tel: fax: Mario Mcknight, PhD [address] [address] Phone: tel: fax: Referral ID Status Reason Start Date Expiration Date V isits Requested Visits Authorized [id number] Closed Specialty Services Required 06/23/2024 12/20/2024 1 [...] and content) DATE CREATED AUTHOR 08/27/2021 [facility] DATE CREATED AUTHOR AUTHOR'S ORGANIZ ATION 01/01/2023 [facility] DATE CREATED AUTHOR AUTHOR'S ORGANIZ ATION 01/30/2024 [facility] DATE CREATED AUTHOR AUTHOR'S ORGANIZ ATION 06/25/2024 [facility] DATE CREATED AUTHOR AUTHOR'S ORGANIZ ATION 11/09/2024 [facility] DATE CREATED AUTHOR AUTHOR'S ORGANIZ ATION 11/11/2024 [facility] dical Specialists EPIC REASON FOR VISIT (unrecogniz ed section and content) Reason Comments Memory difficulty Reason Comments Well Women Visit STI Screening Care Teams (unrecognized sec tion and content) Team Status: Active Member Role Status Dates Manisha Marc APRN DIRECTOR INDUSTRIAL NURSING-[place] Primary Care Provider Active Team Status: Active Member Role Status Dates ROSITA Echeverria Primary Care Provider, Attending Provider Active Team Status: Inactive Member Role Status Dates Manisha Marc APRN NP-[place] Primary Care Provider Active Celio Mullins DO Attending Provider Active Team Status: Inactive Member Role Status Dates Manisha Marc APRN DIRECTOR INDUSTRIAL NURSING-C Primary Care Provider Active Clinton Frazier MD Attending Provider Active Team Status: Inactive Member Role Status Dates Manisha Marc APRN DIRECTOR INDUSTRIAL NURSING-C Primary Care Provider Active Start: July 032022 End: July 03, 2023 Celio Mullins DO Attending Provider Active St art: July 03, 2023 End: July 03, 2023 Team Status: Active Member Role Status Dates Manisha Marc APRN DIRECTOR INDUSTRIAL NURSING-C Primary Care Provider Active Start: July 032022 [...] Member Role Status Dates Manisha Marc APRN DIRECTOR INDUSTRIAL NURSING-C Primary Care Provider Active Start: July End: July 19, 2023 Clinton Frazier MD Attending Provider Active Start: July 19, 2023 End: July 19, 2023 Team Status: Inactive Member Role Status Dates Manisha Marc APRN DIRECTOR INDUSTRIAL NURSING-C Attending Provider Act rafal Start: August 13, 2023 End: August 13, 2023 Team Status: Inactive Member Role Status Dates Nely Cage [facility] Attending Provider Active Start: August 19, 2023 End: August 19, 2023 Team Status: Active Member Role Status Dates Manisha Marc APRN DIRECTOR INDUSTRIAL NURSING-C Primary Care Provider, Attending Provider Active Start: August 19, 2023 Team Status: Inactive Member Role Status Dates Manisha Marc APRN DIRECTOR INDUSTRIAL NURSING-C Attending Provider Act rafal Start: September 03, 2023 End: September 03, 2023 Team Status: Inactive Member Role Status Dates Manisha Marc APRN DIRECTOR INDUSTRIAL NURSING-C Primary Care Provider Active Start: October 012023 End: October 01, 2023 Celio Mullins DO Attending Provider Active St art: October 01, 2023 End: October 01, 2023 Team Status: Active Member Role Status Dates Manisha Marc APRN DIRECTOR INDUSTRIAL NURSING-C Primary Care Provider Active Start: August 142022 Edward Gilmore MD Attending Provider Active Start: August 14, 2023 Team Status: Active Member Role Status Dates Manisha Marc APRN DIRECTOR INDUSTRIAL NURSING-C Primary Care Provider, Attending Provider Active Start: October 06, 2023 Team Status: Inactive Member Role Status Dates Manisha Marc APRN DIRECTOR INDUSTRIAL NURSING-C Primary Care Provider Active Start: October 082023 End: October 08, 2023 Gwne Cox DO Attending Provider Active Start: October 08, 2023 End: October 08, 2023 Team Status: Active Member Role Status Dates Manisha Marc APRN DIRECTOR INDUSTRIAL NURSING-C Primary Care Provider, Attending Provider Active Start: October 30, 2023 Team Status: Inactive Member Role Status Dates Manisha Marc APRN DIRECTOR INDUSTRIAL NURSING-C Primary Care Provider, Attending Provider Active Start: November 03, 2023 End: November 03, 2023 Team Status: Active Member Role Status Dates Manisha Marc APRN DIRECTOR INDUSTRIAL NURSING-C Primary Care Provider Active Start: August Edward Gilmore MD Attending Provider Active Start: September 10, 2023 Team Status: Inactive Member Role Status Dates Manisha Marc APRN DIRECTOR INDUSTRIAL NURSING-C Primary Care Provider Active Start: November 26, 2023 End: November 26, 2023 Celio Mullins DO Attending Provider Active St art: November 26, 2023 End: November 26, 2023 Team Status: Active Member Role Status Dates Manisha Marc APRN DIRECTOR INDUSTRIAL NURSING-C Primary Care Provider Active Start: January 01, 2024 Edward Gilmore MD Attending Provider Active Start: January 01, 2024 Team Status: Active Member Role Status Dates Manisha Marc APRN DIRECTOR INDUSTRIAL NURSING-C Primary Care Provider Active Start: April 03, 2024 Edward Gilmore MD Attending Provider Active Start: April 03, 2024 Team Status: Active Member Role Status Dates Manisha Marc APRN DIRECTOR INDUSTRIAL NURSING-C Primary Care Provider Active Start: April 12, 2024 Jaymie Griffin DO Attending Provider Active Start: April 12, 2024 Team Status: Inactive Member Role Status Dates Manisha Marc APRN DIRECTOR INDUSTRIAL NURSING-C Primary Care Provider, Attending Provider Active Start: April 21, 2024 End: April 21, 2024 Team Status: Active Member Role Status Dates Manisha Marc APRN DIRECTOR INDUSTRIAL NURSING-C Primary Care Provider Active Start: April 12, 2024 Agusto Rojas DO Attending Provider Active Sta rt: April 12, 2024 Team Status: Active Member Role Status Dates Manisha Marc APRN DIRECTOR INDUSTRIAL NURSING-C Primary Care Provider Active Start: April 15, 2024 Agusto Rojas DO Attending Provider Active Sta rt: April 15, 2024 Team Status: Active Member Role Status Dates Manisha Marc APRN DIRECTOR INDUSTRIAL NURSING-C Primary Care Provider Active Start: April 192023 Edward Gilmore MD Attending Provider Active Start: May 13, 2024 Team Status: Active Member Role Status Dates Manisha Marc APRN DIRECTOR INDUSTRIAL NURSING-C Primary Care Provider, Attending Provider Active Start: June 07, 2024 Team Status: Inactive Member Role Status Dates Manisha Marc APRN DIRECTOR INDUSTRIAL NURSING-C Primary Care Provider Active Start: May End: [...] Member Role Status Dates Manisha Marc APRN DIRECTOR INDUSTRIAL NURSING-C Primary Care Provider, Attending Provider Active Start: June 21, 2024 End: June 21, 2024 Surgical Instrument Mechanic Relationship Specialty Start Date End Date Thaddeus Rod MD [address] [place] [address] PCP - General Family Medicine 04/24/23 Surgical Instrument Mechanic Relationship Specialty Start Date End Date Thaddeus Rod MD [address] [place] [address] PCP - General Family Medicine 04/24/23 Surgical Instrument Mechanic Relationship Specialty Start Date End Date Thaddeus Rod MD [address] [place] [address] PCP - General Family Medicine 04/24/23 Team Status: Inactive Member Role Status Dates Manisha Marc APRN DIRECTOR INDUSTRIAL NURSING-C Primary Care Provider, Attending Provider Active Start: June 25, 2024 End: June 25, 2024 Team Status: Inactive Member Role Status Dates Manisha Marc APRN DIRECTOR INDUSTRIAL NURSING-[place] Attending Provider Act rafal Start: June 25, 2024 End: June 25, 2024 Surgical Instrument Mechanic Relationship Specialty Start Date End Date Thaddeus Rod MD [address] [place] [facility] [place] [address] PCP - General Family Medicine 04/24/23 Surgical Instrument Mechanic Relationship Specialty Start Date End Date Thaddeus Rod MD [address] [facility] [place] [address] PCP - General Family Medicine 04/24/23 Surgical Instrument Mechanic Relationship Specialty Start Date End Date Thaddeus Rod MD [address] [place] [address] PCP - General Family Medicine 04/24/23 Team [...] Member Role Status Dates Manisha Marc APRN DIRECTOR INDUSTRIAL NURSING-C Attending Provider Active Start: July End: August 09, 2024 PHYSICIAN NO FAMILY Primary Care Provider Active Start: August 09, 2024 End: August 09, 2024 Team Status: Inactive Member Role Status Dates Hilaria Burgos , DO Attending Provider Active St art: August 19, 2024 End: August 19, 2024 Manisha Marc APRN DIRECTOR INDUSTRIAL NURSING-C Primary Care Provider Active Start: August 19, 2024 End: August 19, 2024 Team Status: Active Member Role Status Dates Hilaria Burgos , DO Attending Provider, Other Provider Active Start: August 19, 2024 Manisha Marc APRN DIRECTOR INDUSTRIAL NURSING-C Primary Care Provider Active Start: August Team Status: Inactive Member Role Status Dates Manisha Marc APRN DIRECTOR INDUSTRIAL NURSING-C Primary Care Provider, Attending Provider Active Start: August 24, 2024 End: August 24, 2024 Team Status: Active Member Role Status Dates Manisha Marc APRN DIRECTOR INDUSTRIAL NURSING-C Primary Care Provider Active Start: August 24, 2024 Edward Gilmore MD Attending Provider Active Start: August 24, 2024 Team Status: Inactive Member Role Status Dates Manisha Marc APRN DIRECTOR INDUSTRIAL NURSING-C Primary Care Provider Active Start: August End: August 28, 2024 Viry Holder APRN Attending Provider Active S tart: August 28, 2024 End: August 28, 2024 Team Status: Active Member Role Status Dates Manisha Marc APRN DIRECTOR INDUSTRIAL NURSING-C Primary Care Provider Active Start: August Edward Gilmore MD Attending Provider Active Start: August 27, 2024 Team Status: Inactive Member Role Status Dates Manisha Marc APRN DIRECTOR INDUSTRIAL NURSING-C Primary Care Provider Active Start: September 272024 End: September 27, 2024 Viry Holder APRN Attending Provider Active S tart: September 27, 2024 End: September 27, 2024 Surgical Instrument Mechanic Relationship Specialty Start Date End Date Thaddeus Rod MD [address] [place] [address] PCP - General Family Medicine 04/24/23 Team Status: Active Member Role Status Dates Manisha Marc APRN DIRECTOR INDUSTRIAL NURSING-C Primary Care Provider Active Start: October 122024 Tiffanie Villalobos MD Attending Provider Active St art: October 12, 2024 Team Status: Active Member Role Status Dates Manisha Marc APRN DIRECTOR INDUSTRIAL NURSING-[place] Primary Care Provider Active Start: November 03, 2024 Marko Oscar DO Attending Provider Active Start : November 03, 2024 Team Status: Active Member Role Status Dates Manisha Marc APRN DIRECTOR INDUSTRIAL NURSING-C Primary Care Provider Active Start: November 09, 2024 Edward Gilmore MD Attending Provider Active Start: November 09, 2024 Team Status: Inactive Member Role Status Dates Manisha Marc APRN DIRECTOR INDUSTRIAL NURSING-C Primary Care Provider, Attending Provider Active Start: [...] BE BASED ON THE PRIMARY CLINICAL RECORDS. [facility]. provides no warranty or guarantee of the accuracy or completeness of information in this document.
== END 2024-12-01 08:00 | disposition home or self-care (01) ==
LOC: CT 08:00
PROVIDERS: PCP Nurse Practitioner Family; Visit Provider Nurse Practitioner Family
DX: R22.0 Localized swelling, mass and lump, head (principal); R22.1 Localized swelling, mass and lump, neck; J35.1 Hypertrophy of tonsils
CPT/HCPCS: 70491; Q9967

== ENCOUNTER 2024-12-08 08:13 | Outpatient (OUT) | payer OTHER, SELFPAY ==
--- NOTE | 2024-12-08 08:45 | P.CN_ITS ---
Consult Note: HPI Data of Consult Patient: known to practice within the last 3 years Requesting Physician: Vera Blanco NP Primary Care Provider: CHRIS LOPEZ Consult Narrative Reason for consult: f/u Narrative: Ashly Mehta a pleasant 34 year old female presents for evaluation and management of low back pain. Patient has noticed this low back pain since a fall at work in 2018 where she injured her ankle and had to wear a boot, noticed the pain started after she stopped wearing the boot. Today rating pain 8/10 in low back, is intermittent. Pain increased with pushing, pulling, standing, walking, activity, decreased with sleep sitting and lying down. No numbness tingling or weakness. Has tried chiropractor care without success. failed to benefit from tylenol, motrin, celebrex, meloxicam, gabapentin, flexeril and baclofen. pt failed to benefit from 6 weeks of PT for low back pain, cannot tolerate HEP. currently engaged in PT for cervical pain, recent cervical CT shows ddd and facet arthropathy. pt recently underwent lumbar MRI as noted below. cc:: CC: Vera Blanco NP Review of Systems ROS Status of ROS 10 or more systems reviewed and unremark able except as noted in history and below Musculoskeletal Reports: back pain, neck pain, extremity pain and muscle weakness PFSH PFSH Medical History Herpes genitalia ?A60.00 - Herpesviral infection of urogenital system, unspecified (ICD-10) Back pain ?M54.9 - Dorsalgia, unspecified (ICD-10) Arthritis ?M19.90 - Unspecified osteoarthritis, unspecified site (ICD-10) Anemia ?D64.9 - Anemia, unspecified (ICD-10) Depression ?F32.A - Depression, unspecified (ICD-10) Anxiety ?F41.9 - Anxiety disorder, unspecified (ICD-10) COVID-19 ?U07.1 - COVID-19 (ICD-10) Asthma ?J45.909 - Unspecified asthma, uncomplicated (ICD-10) Seizures ?R56.9 - Unspecified convulsions (ICD-10) GERD (gastroesophageal reflux disease) ?K21.9 - Gastro-esophageal reflux disease without esophagitis (ICD-10) Sleep apnea ?G47.30 - Sleep apnea, unspecified (ICD-10) Palpitations ?R00.2 - Palpitations (ICD-10) Prediabetes ?R73.03 - Prediabetes (ICD-10) Hypertension ?I10 - Essential (primary) hypertension (ICD-10) PCOS (polycystic ovarian syndrome) ?E28.2 - Polycystic ovarian syndrome (ICD-10) Abnormal uterine bleeding (AUB) ?N93.9 - Abnormal uterine and vaginal bleeding, unspecified (ICD-10) Menorrhagia ?N92.0 - Excessive and frequent menstruation with regular cycle (ICD-10) Surgical History History of laparoscopy ?Z98.890 - Other specified postprocedural states (ICD-10) History of colposcopy ?Z98.890 - Other specified postprocedural states (ICD-10) History of wisdom tooth extraction ?K08.409 - Partial loss of teeth, unspecified cause, unspecified class (ICD- 10) History of cholecystectomy ?Z90.49 - Acquired absence of other specified parts of digestive tract (ICD- 10) Family History Other Family history of heart disease Family history of stroke Social History Within the past year, how often did you have a drink containing alcohol: monthly or less Smoking status: Never smoker 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 Highest level of school completed/degree received: Associate degree: occupational, technical, vocational program Little interest or pleasure in doing things: not at all Feeling down, depressed, or hopeless: not at all Meds Home Medications and Allergies Home Medications ?Medication ?Instructions ?Recorded ?Confirmed ?Type albuterol sulfate 90 mcg/actuation 2 inh inhalation Q6H PRN shortness 01/17/23 04/14/24 History aerosol inhaler (ProAir HFA) of breath or wheezing metformin 500 mg tablet 500 mg PO BID 01/17/23 10/30/23 History valacyclovir 1 gram tablet 1,000 mg PO BID 06/25/23 11/18/24 History lamotrigine 25 mg tablet (Lamictal) 25 mg PO Q12H 10/30/23 04/14/24 History duloxetine 60 mg capsule,delayed 120 mg PO .HS 04/14/24 11/18/24 History release lisinopril 10 mg tablet mg 04/14/24 History methenamine hippurate 1 gram tablet g 11/18/24 History multivitamin 1 tab PO DAILY 11/18/24 11/18/24 History pantoprazole 40 mg tablet,delayed mg PO 11/18/24 History release Allergies Allergy/AdvReac Type Severity Reaction Status Date / Time amoxicillin Allergy Rash Verified 06/24/24 02:46 cefaclor Allergy Rash Verified 06/24/24 02:46 erythromycin base Allergy Hives Verified 06/24/24 02:46 Exam Constitutional Documenting provider has reviewed patient's vital signs: yes Common normals: no apparent distress, oriented x3, healthy appearing, alert and well nourished General appearance: cooperative Nutritional appearance: obese HENMT Common normals: normocephalic, hearing grossly normal bilaterally and moist oral mucous membranes Head and scalp: normocephalic Eye Common normals: PERRL Pupil: PERRL Neck & C-Spine Common normals: full ROM General: normal visual inspection Cervical spine: cervical ROM normal and pain with cervical ROM Chest Common normals: inspection of chest normal Respiratory Common normals: normal respiratory effort, no retractions and no use of accessory muscles Back & Pelvis Lumbar spine/lower back: ROM limited, pain with ROM and straight leg raise positive left Sacroiliac joints: SI joint(s) abnormal (bilateral marissa, thigh thrust) Other: altered sensation to bilateral L4/5/S1 pattern strength 5/5 in BLE Extremity Common normals: normal to inspection and full ROM Other: tenderness over bilateral GTB Neuro Common normals: oriented x3, CN's II-XII intact bilaterally, moves all extremities, no focal motor deficits, no sensory deficits noted, deep tendon reflexes 2+ bilaterally and gait normal Sensorium/orientation: alert Motor exam: strength 5/5 throughout and no movement abnormalities noted Psych Common normals: mental status grossly normal, thought process normal, cooperative, affect normal, speech normal and activity/motor behavior normal Speech: normal speech Thought process: normal thought process Results Imaging Lumbar MRI: Attestation: I have reviewed the pertinent imaging results. Radiologist's impression: Lower thoracic level: Unremarkable L1-2 :Unremarkable L2-3: Mild diffuse disc bulge. Mild central canal stenosis. Posterior element hypertrophy. Mild bilateral neural foraminal narrowing L3-4: Mild diffuse disc bulge. No central canal stenosis. Posterior element hypertrophy. Mild bilateral neural foraminal narrowing L4-5: Mild diffuse disc bulge. Mild central canal stenosis. Posterior element hypertrophy. Mild bilateral neural foraminal narrowing. L5-S1: Unremarkable MR/MR lumbar spine wo con IMPRESSION: Multilevel discovertebral degenerative changes. Diffuse decreased T1 and T2 signal changes of the bone marrow. infiltrative changes/marrow fatty reconversion changes should be considered. Malignancy should be excluded. May represent lymphoproliferative disorder. Additional Findings Additional findings: If on a controlled substance or opioids, I have checked an [place] report on this patient and there are no aberrancies noted in the prescribing history.??If on a controlled substance or opioid a drug screen was completed and reviewed within the last year, and if there has not been a drug screen completed we ordered one today to monitor higher risk, state monitored pain medication use. As part of providing excellent, safe, comprehensive care, the following was completed at our patient's visit: 1. A medication reconciliation and review to ensure accurate knowledge of current/active medications, including asking our patients to inform us about any [id number] medications or herbal remedies/nutritional supplements/alternative remedies. 2. A review to specifically ensure our patients have had annual screening for screening for depression, screening for tobacco use, and screening for unhealthy alcohol use. For concerning screenings had a discussion with the patient, provided patient education, and recommended follow-up with primary care provider when appropriate. If patient noted with a risk of falling, they received education on strength, gait, and balance training to prevent future risk of falling. Assessment and Plan Assessment and Plan (1) Lumbar degenerative disc disease: (2) Lumbar radiculopathy: (3) Lumbar stenosis with neurogenic claudication: (4) Greater trochanteric bursitis: Qualifiers: Laterality: unspecified laterality Qualified Code(s): M70.60 - Trochanteric bursitis, unspecified hip (5) Myofascial pain syndrome: (6) Lumbar spondylosis: (7) Chronic neck pain: (8) Degenerative disc disease, cervical: (9) Cervical spondylosis: Plan lumbar MRI reviewed with pt, could consider lumbar TFESIs as discussed today. will refer back to Dr Villalobos (heme/onc) for additional evaluation based on MRI findings, pt is an established pt for anemia per pt. will defer ESIs at this time continue PT for chronic neck pain defer medication management continue HEP as tolerated continue otc nsaids and tylenol PRN f/u once cleared by heme/onc can consider lumbar TFESI
== END 2024-12-08 08:14 | disposition home or self-care (01) ==
PROVIDERS: PCP Nurse Practitioner Family; Visit Provider Nurse Practitioner
DX: M51.369 Other intervertebral disc degeneration, lumbar region without mention of lumbar back pain or lower extremity pain (principal); M54.16 Radiculopathy, lumbar region; M48.062 Spinal stenosis, lumbar region with neurogenic claudication; M70.60 Trochanteric bursitis, unspecified hip; M79.18 Myalgia, other site; M47.816 Spondylosis without myelopathy or radiculopathy, lumbar region; M54.2 Cervicalgia; M47.812 Spondylosis without myelopathy or radiculopathy, cervical region
CPT/HCPCS: G0463

== ENCOUNTER 2024-12-28 09:30 | Outpatient (OUT) | payer OTHER, SELFPAY ==
[2024-12-28 09:47] LABS: Basophils Absolute Auto 0.1 10^3/uL (0.0-0.1); Basophils Percent Auto 0.8 % (0.2-2.0); Eosinophils Absolute Auto 0.1 10^3/uL (0.0-0.7); Hematocrit 41.5 % (36.0-48.0); Hemoglobin 13.6 g/dL (12.0-16.0); Immature Granulocytes Abs Auto 0.01 10^3/uL (0.00-0.03); Immature Granulocytes Pct Auto 0.2 % (0.0-0.5); Lymphocytes Absolute Auto 2.5 10^3/uL (1.2-3.8); Mean Corpuscular HGB Conc 32.8 g/dL (29.9-35.2); Mean Corpuscular Hemoglobin 30.6 pg (26.7-34.0); Mean Corpuscular Volume 93.5 fL (81.0-99.0); Mean Platelet Volume 9.5 fL (9.5-13.5); Monocytes Absolute Auto 0.3 10^3/uL (0.3-0.8); Monocytes Percent Auto 4.8 % (1.7-12.0); Neutrophils Absolute Auto 3.7 10^3/uL (1.4-6.5); Neutrophils Percent Auto 55.2 % (43.0-75.0); Platelet Count 191 10^3/uL (150-450); Red Blood Count 4.44 10^6/uL (4.20-5.40); Red Cell Distribution Width 12.1 % (11.0-15.0); Reticulocyte Pct Auto 1.53 % (0.60-3.10); White Blood Count 6.7 10^3/uL (4.0-11.0)
[2024-12-28 09:48] LABS: Erythrocyte Sedimentation Rate 31 mm/hr (<=20)
--- OUTSIDE RECORDS SUMMARY | 2024-12-28 09:52 | XMS_ITS | CCD ---
Author Organization [facility] Care Team Providers Care Steam Gigger Name Role Phone BRENT KINNEY Referring Unavailable BRENT KINNEY Attending Unavailable BRENT KINNEY Admitting Unavailable Michelle Ernandez Unavailable VIOLA, DR NUR Consulting Unavailable WILDER, DR NUR Admitting Unavailable HOUSE, DR NUR Primary Care Unavailable HOUSE, DR NUR Attending Unavailable ZIEBER, DR USGEY Ibrahim Consulting Unavailable [...] Attending Provider MD Clinton Frazier Attending Provider [phone] ROSITA Marc Primary Care Provider MD Edward Gilmore Attending Provider DO Gwen Cox Attending Provider ROSITA Marc Primary Care Provider MD Edward Gilmore Attending Provider ROSITA Marc Attending Provider DO Gwen Cox Attending Provider ROSITA aMrc Primary Care Provider MD Edward Gilmore Attending Provider ROSITA Marc Primary Care Provider MD Edward Gilmore Attending Provider Giwill CROWLEY, Andrius Vytautcortez Attending Unavailable Gilevirakatalina CROWLEY, Andrius Vytautas Attending Unavailable Gilevirakatalina CROWLEY, Andrius Vytautas Attending Unavailable Giedrakatalina CROWLEY, Andrius Vytautcortez Attending Unavailable ROSITA Marc Primary Care Provider MD Edward Gilmore Attending Provider ROSITA Marc Primary Care Provider MD Edward Gilmore Attending Provider ROSITA Hassan Attending Provider [phone] ROSITA Marc Primary Care Provider MD Edward Gilmore Attending Provider [phone] ROSITA Hassan Attending Provider Thaddeus Rod MD Primary Care Provider Manisha Marc APRN Primary Care Provider Edward Gilmore MD Attending Provider [phone] Casandra Hassan APRN Attending Provider [phone] Manisha Marc APRN Attending Provider Tari BECKER, Manisha Primary Care Provider Edward Gilmore MD Attending Provider NO FAMILY, PHYSICIAN Primary Care Provider Unava ilable Brodie Burgos DOe Chitra Attending Provider [phone] Manisha Marc APRN Primary Care Provider Edward Gilmore MD Attending Provider Manisha Marc APRN Attending Provider Edward Gilmore MD Attending Provider Loretta RAMOS Hilaria Chitra Attending Provider [phone] Manisha Marc APRN Primary Care Provider Edward Gilmore MD Attending Provider MELA ANDERSON Attending Unavailable GWEN COX Attending Unavailable MANISHA MARC Referring UnavailMARIO Bailey Attending Unavailable GWEN COX Referring Unavailable CONSUELO LOVE Attending Unavailable MARKO OSCAR Attending Unavailable CONSUELO LOVE Attending Unavailable Manisha Marc Attending Unavailable NO FAMILY, PHYSICIAN Primary Care Unavailable Manisha Marc Admitting Unavailable Casandra Hassan Admitting Unavailable Casandra Hassan Attending Unavailable Edward Gilmore Admitting Unavailab le Edward Gilmore Attending Unavailab le Manisha Marc Primary Care Unavailable Anny BurgosHilaria L Admitting Unavailable Ly Hilaria L Attending Unavailable Tari Manisha Primary Care Unavailable Manisha Marc Attending Unavailable Manisha Marc Admitting Unavailable Allergies Allergy Classification Reported Allergen(s) Allergy Type Date of Onset Reaction(s) Facility (20 sources) Amoxicillin; Translations: [AMOXICILLIN] Drug Allergy 07-08-20 16 daniel [facility] Repository (20 sources) Cefaclor; Translations: [CEFACLOR] Drug Allergy 04-14-20 15 [facility] Repository (20 sources) Erythromycin; Translations: [ERYTHROMYCIN] Drug [facility] (19 sources) Cefaclor; Translations: [Ceclor] Drug Allergy 04-17-20 15 [facility] Repository (20 sources) Erythromycin Drug Allergy 04-17-20 15 Unknown Reaction, [facility] Repository (20 sources) Cephalosporins (Antibiotic); Translations: [Cephalosporins] Allergy to substance 12-10-19 22 Unknown Reaction, Rash [facility] (2 sources) Lactulose Drug Allergy 02-12-20 20 Unknown Reaction [facility] (1 source) Erythromycin Drug Allergy 11-16-19 25 [facility] Repository Medications Current Medications Medication Drug Class(es) Dates Sig (Normalized) Sig (Original) [id number] 200 actuat albuterol 0.09 mg/actuat metered dose [...] Tari Garnett take 1 capsule by mo [facility] once daily as needed Gabapentin 300 [...] Li sinopril Active take 1 tablet by [facility] every twenty-four hours Lisinopril 10 MG [...] hours as needed for nausea and vomiting 05 21September 27, 2024 1:00am Start: 07-07-2023 take 1 [...] Tablet Discontinued 5 MG PO Daily March 05, [...] 10/10/2023 11/03/2024 Discontinued take 1 capsule by [facility] every twenty-four hours Vraylar 1.5 MG 1 capsule Orally Once a day Active ciprofloxacin 250 mg oral tablet (17 sources) Quinolone Antimicrobial Start: 08-12-2024 End: 08-19-2024 take 1 tablet by mouth twice daily Ciprofloxacin Hcl (Cipro) 250 mg tablet Discontinued 250 MG PO Twice daily 10 August 12, 2024 1:00am August 19, 2024 10:00am [...] Start: 05-31-2021 take 1 capsule by mo [facility] every twelve hours Macrobid 100 MG [...] 12:24pm Start: 05-31-2021 take 1 tablet by miranda [...] Translations: [Iron deficiency anemia, unspecified] 06-08-2024 Episodic Delirium, dementia, and amnestic and other [...] Translations: [Anemia, unspecified] Onset: 02-11-2023 02-11-2023 Episodic Deficiency and other anemia (4 sources) Iron deficiency anemia, unspecified; Translations: [Iron deficiency anemia, unspecified] Onset: 08-19-2024 08-24-2024 Episodic Genitourinary symptoms and ill-defined conditions (20 sources) Dysuria; Translations: [Hematuria, unspecified] Onset: 06-03-2018 Resolved: 05-31-2021 Episodic Other endocrine disorders (13 sources) Disorder [...] Test Name Value Interpretation Reference Range Facility US PELVIC COMPLETE W/ TVon 0 11-30-2024 US PELVIC COMPLETE W/ TV EXAM: US PELVIC COMPLETE W/ TV HISTORY: PCOS. COMPARISON: None available. TECHNIQUE: Two-dimensional transabdominal grayscale ultrasound imaging of the pelvis was performed. Color flow Doppler imaging of the ovaries was also performed. Transvaginal was performed. FINDINGS: UTERUS 7.2 x 3.1 x 5.6 cm The uterus is anteverted in position and demonstrates a normal, homogeneous echotexture. Multiple nabothian cysts are visualized within the cervix. ENDOMETRIUM 0.5 cm The endometrium demonstrates a normal, homogeneous echotexture. RIGHT OVARY 4.2 x 2.4 x 2.6 cm The right ovary demonstrates a normal echotexture. The ovarian volume is 14 mL. There is normal color Doppler flow. There is a 2.4 cm dominant follicle visualized. LEFT OVARY 4.6 x 2.7 x 3.8 cm The left ovary demonstrates a normal echotexture. The ovarian volume is 25 mL. There is normal color Doppler flow. There is a 3.5 cm simple cyst visualized. No fluid is present within the cul-de-sac. IMPRESSION: 1. Simple left ovarian cyst. 2. Normal color Doppler flow within the bilateral ovaries. Interpreted by: Electronically signed by JACQUELINE YUEN II, MD, PHD at 01-Dec-2024 12:04:08 AM [facility] Normal Not Available Comment on above: Order Comment: US PE LVIS-TRANSVAG IF INDICATED No LMP recorded. HCG ( test) Ql (U)o n 11-03-2024 Interpretation and review of laboratory results Normal [facility] Preg Test, Ur Negative Negative [facility] Human papilloma virus 16+18+ 31+33+35+39+45+51+52+56+58+59+66+68 DNA [Presence] in [place] 11-03-2024 HPV 16+18+31+33+35+39+45+51 +52+56+58+59+66+68 DNA Probe+sig amp Ql (Cvx) Human papilloma virus 16+18+31+33+35+39+45+51 +52+56+58+59+66+68 DNA [Presence] in Cer Negative [facility] Comment on above: This nucleic acid am plification test detects fourteen high-risk HPV types (16,18,31,33,35,39,45,51,52,56,58,59,66,68)without differentiation.Performed at: =G - [facility] [address] [id number] Director: Monse Cardona MD, Phone: [phone] at: - [facility] [address] [id number] Director: Monse Cardona MD, Phone: [phone] No Panel Informationon 11-03 HPV High Risk Other Comment Note . [facility] Comment on above: TESTS RESULT FLAG UN ITS REF RANGE LAB -DIAGNOSIS: 02 NEGATIVE FOR INTRAEPITHELIAL LESION OR MALIGNANCY.Specimen adequacy: 02 Satisfactory for evaluation. Endocervical and/or squamous metaplastic cells (endocervical component) are present.Performed by: Mikhail Garces, Welding Machine Operator [employer] (ASCP). 02Note: Note 02 The Pap smear [...] Low,>-Panic High,A-Abnormal,AA-Critical Abnormal ------Performed at:02 WB [facility] [place] [address] Monse Cardona MD, Reference Lab Test Patient Age Note . [facility] Comment on above: TESTS RESULT FLAG UN ITS REF RANGE LAB - Clinician Provided Cytology Information Source.............Cervix;Endocervix No. of containers..01 ThinPrep VialAge Leeo KARRIE Elise... 30-65 FLAG LEGEND: L-Low Normal,H-High Normal,LL-Alert Low,HH-Alert High <-Panic Low,>-Panic High,A-Abnormal,AA-Critical Abnormal ------Performed at:01 =G [facility] [address] [place] [address] Monse Cardona MD, Basophils Auto (Bld) [#/Vol] on 10-12-2024 Basophils (Bld) [#/Vol] Automated basoph il count 0.0-0.1 [facility] Basophils/100 WBC Auto (Bld) on 10-12-2024 Basophils/100 WBC (Bld) Automated basophil % 0. 2-2.0 [facility] Eosinophils/100 WBC Auto (Bl d)on 10-12-2024 Eosinophils/100 WBC (Bld) Automated eosinophil % 0.9-7.0 [facility] Erythrocyte distribution wid th Auto (RBC) [Ratio]on 10-12-2024 Erythrocyte distribution width (RBC) [Ratio] Erythrocyte distribution width [Ratio] by Automated count 11.0-15.0 [facility] Estimated glomerular filtrat ion rate (GFR) non- Americanon 10-12-2024 GFR/1.73 sq M.predicted among non-blacks MDRD (S/P/Bld) [Vol rate/Area] Estimated glomerular filtration rate (GFR) non- >=60 mL/min/1.7 3m 2 [facility] Hematocrit Auto (Bld) [Volum e fraction]on 10-12-2024 Hematocrit (Bld) [Volume fraction] Hematocrit [Volume Fraction] of Blood by Automated count 36.0-48.0 [facility] Hemoglobin [Mass/volume] in Bloodon 10-12-2024 Hemoglobin (Bld) [Mass/Vol] Hemoglobin [Mass/volume] in Blood 12.0-16.0 [facility] Iron binding capacity [Mass/ volume] in Serum or Plasmaon 10-12-2024 Iron binding capacity [Mass/Vol] Iron binding capacity [Mass/volume] in Serum or Plasma 250.0-450. 0 [facility] Iron saturation [Mass Fracti on] in Serum or Plasmaon 10-12-2024 Iron saturation [Mass fraction] Iron saturation [Mass Fraction] in Serum or Plasma [facility] Laboratory - Chemistry and C hemistry - challengeon 10-12-2024 Calcium [Mass/Vol] 9.0 mg/dL 8.5-10.1 [facility] Chloride [Moles/Vol] 104 mmol/L 98-107 [facility] CO2 [Moles/Vol] 26.8 mmol/L 21.0-32.0 [facility] Creatinine [Mass/Vol] 0.73 mg/dL 0.55-1.02 [facility] Ferritin [Mass/Vol] 321.0 ng/mL High 8.0-252.0 [facility] GFR/1.73 sq M.predicted MDRD (S/P/Bld) [Vol rate/Area] mL/min/{1.73_m2} >=60 mL/min/1.7 3m 2 [facility] Glucose [Mass/Vol] 89 mg/dL 74-106 [facility] Iron [Mass/Vol] 70.0 ug/dL 50.0-170.0 [facility] Potassium [Moles/Vol] 4.4 mmol/L 3.5-5.1 [facility] Sodium [Moles/Vol] 138 mmol/L 136-145 [facility] Urea nitrogen [Mass/Vol] 10.0 mg/dL 7.0-18.0 [facility] Urea nitrogen/Creatinine [Mass ratio] 13.7 mg/mg [facility] Laboratory - Hematology and Cell countson 10-12-2024 ESR (Bld) [Velocity] 46 mm/h High <=20 [facility] Immature granulocytes/100 WBC (Bld) 0.3 % 0.0-0.5 [facility] Leukocytes [#/volume] correc carmelita for nucleated erythrocytes in Blood by Automated counon 10-12-2024 WBC corrected for nucl RBC Auto (Bld) [#/Vol] Leukocytes [#/volume] corrected for nucleated erythrocytes in Blood by Automated coun 4.0-11.0 [facility] Lymphocytes Auto (Bld) [#/Vo l]on 10-12-2024 Lymphocytes (Bld) [#/Vol] Lymphocytes [#/volume] in Blood by Automated count 1.2-3.8 [facility] Lymphocytes/100 WBC Auto (Bl d)on 10-12-2024 Lymphocytes/100 WBC (Bld) Lymphocytes/100 leukocytes in Blood by Automated count 20.5-60.0 [facility] MCH Auto (RBC) [Entitic mass ]on 10-12-2024 MCH (RBC) [Entitic mass] MCH [Entitic mass] by Automated count 26.7-34.0 [facility] MCHC Auto (RBC) [Mass/Vol]on 10-12-2024 MCHC (RBC) [Mass/Vol] MCHC [Mass/volume] by Automated count 29.9-35.2 [facility] MCV Auto (RBC) [Entitic vol] on 10-12-2024 MCV (RBC) [Entitic vol] MCV [Entitic vol ume] by Automated count 81.0-99.0 [facility] Monocytes Auto (Bld) [#/Vol] on 10-12-2024 Monocytes (Bld) [#/Vol] Automated blood monocyte count 0.3-0.8 [facility] Monocytes/100 WBC Auto (Bld) on 10-12-2024 Monocytes/100 WBC (Bld) Automated monocyte % 1. 7-12.0 [facility] Neutrophils Auto (Bld) [#/Vo l]on 10-12-2024 Neutrophils (Bld) [#/Vol] Neutrophils [#/volume] in Blood by Automated count 1.4-6.5 [facility] Neutrophils/100 WBC Auto (Bl d)on 10-12-2024 Neutrophils/100 WBC (Bld) Automated neutrophil % 43.0-75.0 [facility] No Panel Informationon 10-12 C-Reactive Protein, Quantitative 1.07 mg/dL High <=0.50 [facility] Eosinophils # (Auto) 0.2 10 3/uL 0.0-0.7 [facility] Immature Granulocyte # (Auto) 0.03 10 3/uL 0.00-0.03 [facility] Platelet mean volume Auto (B ld) [Entitic vol]on 10-12-2024 Platelet mean volume (Bld) [Entitic vol] Platelet mean volume [Entitic volume] in Blood by Automated count Low 9.5-13.5 [facility] Platelets Auto (Bld) [#/Vol] on 10-12-2024 Platelets (Bld) [#/Vol] Platelets [#/vol ume] in Blood by Automated count 150-450 [facility] RBC Auto (Bld) [#/Vol]on RBC (Bld) [#/Vol] Erythrocytes [#/volu me] in Blood by Automated count 4.20-5.40 [facility] Serum or plasma anion gap de terminationon 10-12-2024 Anion gap [Moles/Vol] Serum or plasma an ion gap determination [facility] Influenza virus B Ag [Presen ce] in Upper respiratory specimen by Rapid immunoassayon 09-27-2024 FLUBV Ag IA.rapid Ql (Nph) Influenza virus B Ag [Presence] in Upper respiratory specimen by Rapid immunoassay [facility] No Panel Informationon 09-27 Influenza Type A (Rapid) Negative [facility] POC SARS CoV-2 Antigen Negative [facility] Iron binding capacity [Mass/ volume] in Serum or Plasmaon 08-24-2024 Iron binding capacity [Mass/Vol] Iron binding capacity [Mass/volume] in Serum or Plasma 250.0-450. 0 [facility] Iron saturation [Mass Fracti on] in Serum or Plasmaon 08-24-2024 Iron saturation [Mass fraction] Iron saturation [Mass Fraction] in Serum or Plasma [facility] Laboratory - Chemistry and C hemistry - challengeon 08-24-2024 Iron [Mass/Vol] 81.0 ug/dL 50.0-170.0 [facility] Measles virus IgG Ab [Units/ volume] in Serum by Immunoassayon 08-24-2024 MeV IgG IA Qn (S) Measles virus IgG Ab [Units/volume] in Serum by Immunoassay Immune >16.4 [facility] Comment on above: Negative <13.5 Equiv ocal 13.5 - 16.4 Positive >16.4Presence of antibodies to Rubeola is presumptive evidenceof immunity except when acute infection is suspected. No Panel Informationon 08-24 Rubella IgG Antibody <0.90 index Abnormal Immune >0.99 [facility] Comment on above: Non-immune <0.90 Equ ivocal 0.90 - 0.99 Immune >0.99 Serum mumps virus IgG antibo dy assay (units/volume)on 08-24-2024 MuV IgG Qn (S) Serum mumps virus Ig G antibody assay (units/volume) Abnormal Immune >10.9 [facility] Comment on above: Negative <9.0 Equivo heike 9.0 - 10.9 Positive >10.9A positive result generally indicates past exposure toMumps virus or previous vaccination.Performed at: - [facility] [id number] Director: Cassius Zhong PhD, Phone: [phone] Pathology study report docum entOrdered By: Thaddeus Shah on 08-20-2024 Pathology study [facility] Other HCG ( test) IAcamden d Ql (U)Ordered By: Hilaria Burgos on 08-19-2024 HCG ( test) Ql (U) Urine human chorionic gonadotropin (hCG) detection by immunoassay [facility] HCG,Urineon 08-19-2024 Beta HCG ( test) Ql (U) Negative Normal [facility] Comment on above: Result Comment: PERF ORMED BY: [place] [address] PATHOLOGIST COAL DRIER OPERATOR RYLAN BENEDICT M.D. Performed By: #### U HCG #### [address] 08-19-2024 L --- Specimen: [id number] Received: 08/19/24 Status: RONYChloé Sally Num: [id number] Spec Type: Surgical Subm Dr: Hilaria Burgos DO Tissues: A Small Intestine - Biopsy/Polyp (SM BOWEL BX R/O CELIAC) B GASTRIC FOR HP (GASTRIC BX R/O H PYLORI) C Esophagus Biopsy (GE JUNCTION BX / ESOPHAGITIS) Procedures: PAS - LGRN, HE/6, Gross/Micro L4/3, H PYLORI Age/ Patient Sex Location Account Attending Physician Ashly Mehta 33/F [id number] Hilaria Burgos DO SPEC NUM: [id number] RECD: 08/19/24 STATUS: RONYChloé SALLY NUM: [id number] GRADY: 08/19/241003 [facility] DR: Hilaria Burgos DO ENTERED: 08/19/24 [facility] DR: ABHISHEK TYPE: Surgical DEPT: S ENTERED BY: [id number] RECV BY: [id number] ORDERED: PAS - LGRN, HE/6, Gross/Micro L4/3, [...] esophagitis Specimen: [id number] Received: 08/19/24 Status: ARLINE Salter Num: [id number] Spec Type: Surgical Subm Dr: Hilaria Burgos DO Tissues: A Small Intestine - Biopsy/Polyp (SM BOWEL BX R/O CELIAC) B GASTRIC FOR HP (GASTRIC BX R/O H PYLORI) C Esophagus Biopsy (GE JUNCTION BX / ESOPHAGITIS) Procedures: SHEILA KIRK, HE/6, Gross/Micro L4/3, H PYLORI Patient: Ashly Mehta [id number] (Continued) Specimen: [id number] Received: 08/19/24 (Continued) Signed (signature on file) Thaddeus Shah Jr., MD 08/20/24 1417 Specimen: Received: 08/19/24 Status: ARLINE Salter Num: [id number] Spec Type: Surgical Subm Dr: Hilaria Burgos, Tissues: A Small Intestine - Biopsy/Polyp (SM BOWEL BX R/O CELIAC) B GASTRIC FOR HP (GASTRIC BX R/O H PYLORI) C Esophagus Biopsy (GE JUNCTION BX / ESOPHAGITIS) Procedures: SHEILA KIRK, HE/6, Gross/Micro L4/3, H PYLORI Patient: Ashly Mehta [id number] (Continued) Specimen: Received: 08/19/24 (Continued) Gross Description Part A is received in formalin labeled with the patients name, date of , and small bowel BX are 2 leal-green, focally erythematous, friable, 0.3 cm each in greatest dimension tissue bits. The specimen is entirely submitted in a single cassette. (1, ns, A) Part B is received in formalin labeled with the patients name, date of , and gastric BX are 2 leal-green, focally erythematous, friable, 0.3 cm each in greatest dimension tissue bits. The specimen is entirely submitted in a single cassette. (1, ns, S25-11 B) Part C is received in formalin labeled [...] negative with a satisfactory control. CPT Codes 85154 x 3, 36840, 03692 -- (more content not included)... Normal [facility] Urine Cultureon 08-09-2024 Bacteria identified Cx Nom (U) ORGANISM: Escherichia coli (ESBL) (O:ESCCOLESBL) [place] Count >100,000 Aerobic RENATE Charge ([id number]) -- [...] RESISTANT TO ALL B-LACTAM DRUGS. PERFORMED BY: [place] [address] PATHOLOGIST COAL DRIER OPERATOR RYLAN BENEDICT M.D. Normal [facility] Comment on above: Performed By: #### C UU #### [address] Urine cultureOrdered By: Keesha Marc on 08-09-2024 Bacteria identified Cx Nom (U) Abnormal [facility] Albumin [Mass/volume] in Ser um or Plasmaon 06-29-2024 Albumin [Mass/Vol] Albumin [Mass/volume ] in Serum or Plasma 2.9-4.4 [facility] Basophils Auto (Bld) [#/Vol] on 06-29-2024 Basophils (Bld) [#/Vol] Automated basoph il count 0.0-0.1 [facility] Basophils/100 WBC Auto (Bld) on 06-29-2024 Basophils/100 WBC (Bld) Automated basophil % 0. 2-2.0 [facility] Eosinophils/100 WBC Auto (Bl d)on 06-29-2024 Eosinophils/100 WBC (Bld) Automated eosinophil % 0.9-7.0 [facility] Erythrocyte distribution wid th Auto (RBC) [Ratio]on 06-29-2024 Erythrocyte distribution width (RBC) [Ratio] Erythrocyte distribution width [Ratio] by Automated count High 11.0-15.0 [facility] Hematocrit Auto (Bld) [Volum e fraction]on 06-29-2024 Hematocrit (Bld) [Volume fraction] Hematocrit [Volume Fraction] of Blood by Automated count 36.0-48.0 [facility] Hemoglobin [Mass/volume] in Bloodon 06-29-2024 Hemoglobin (Bld) [Mass/Vol] Hemoglobin [Mass/volume] in Blood 12.0-16.0 [facility] IgA [Mass/volume] in Serum o r Plasmaon 06-29-2024 IgA [Mass/Vol] IgA [Mass/volume] in Serum or Plasma 87-352 [facility] IgG [Mass/volume] in Serum o r Plasmaon 06-29-2024 IgG [Mass/Vol] IgG [Mass/volume] in Serum or Plasma [phone] [facility] IgM [Mass/volume] in Serum o r Plasmaon 06-29-2024 IgM [Mass/Vol] IgM [Mass/volume] in Serum or Plasma 26-217 [facility] Iron binding capacity [Mass/ volume] in Serum or Plasmaon 06-29-2024 Iron binding capacity [Mass/Vol] Iron binding capacity [Mass/volume] in Serum or Plasma 250.0-450. 0 [facility] Iron saturation [Mass Fracti on] in Serum or Plasmaon 06-29-2024 Iron saturation [Mass fraction] Iron saturation [Mass Fraction] in Serum or Plasma [facility] Laboratory - Chemistry and C hemistry - challengeon 06-29-2024 Cobalamin (Vitamin B12) [Mass/Vol] 647 pg/mL [phone] [facility] Comment on above: Performed at: [facility] [address] [id number] Director: Cassius Zhong PhD, Phone: [phone] Ferritin [Mass/Vol] 43.0 ng/mL 8.0-252.0 [facility] Iron [Mass/Vol] 50.0 ug/dL 50.0-170.0 [facility] LDH [Catalytic activity/Vol] 202 U/L 81-234 [facility] Laboratory - Hematology and Cell countson 06-29-2024 ESR (Bld) [Velocity] 41 mm/h High <=20 [facility] Immature granulocytes/100 WBC (Bld) 0.3 % 0.0-0.5 [facility] Leukocytes [#/volume] correc carmelita for nucleated erythrocytes in Blood by Automated counon 06-29-2024 WBC corrected for nucl RBC Auto (Bld) [#/Vol] Leukocytes [#/volume] corrected for nucleated erythrocytes in Blood by Automated coun High 4.0-11.0 [facility] Lymphocytes Auto (Bld) [#/Vo l]on 06-29-2024 Lymphocytes (Bld) [#/Vol] Lymphocytes [#/volume] in Blood by Automated count 1.2-3.8 [facility] Lymphocytes/100 WBC Auto (Bl d)on 06-29-2024 Lymphocytes/100 WBC (Bld) Lymphocytes/100 leukocytes in Blood by Automated count 20.5-60.0 [facility] MCH Auto (RBC) [Entitic mass ]on 06-29-2024 MCH (RBC) [Entitic mass] MCH [Entitic mass] by Automated count 26.7-34.0 [facility] MCHC Auto (RBC) [Mass/Vol]on 06-29-2024 MCHC (RBC) [Mass/Vol] MCHC [Mass/volume] by Automated count 29.9-35.2 [facility] MCV Auto (RBC) [Entitic vol] on 06-29-2024 MCV (RBC) [Entitic vol] MCV [Entitic vol ume] by Automated count 81.0-99.0 [facility] Monocytes Auto (Bld) [#/Vol] on 06-29-2024 Monocytes (Bld) [#/Vol] Automated blood monocyte count 0.3-0.8 [facility] Monocytes/100 WBC Auto (Bld) on 06-29-2024 Monocytes/100 WBC (Bld) Automated monocyte % 1. 7-12.0 [facility] Neutrophils Auto (Bld) [#/Vo l]on 06-29-2024 Neutrophils (Bld) [#/Vol] Neutrophils [#/volume] in Blood by Automated count High 1.4-6.5 [facility] Neutrophils/100 WBC Auto (Bl d)on 06-29-2024 Neutrophils/100 WBC (Bld) Automated neutrophil % 43.0-75.0 [facility] No Panel Informationon 06-29 C-Reactive Protein, Quantitative 0.74 mg/dL High <=0.50 [facility] Eosinophils # (Auto) 0.2 10 3/uL 0.0-0.7 [facility] Immature Granulocyte # (Auto) 0.03 10 3/uL 0.00-0.03 [facility] Protein Electrophoresis M-Manpreet Not Observed g/dL Not Observed [facility] Protein Electrophoresis Note Comment . [facility] Comment on above: Protein electrophore sis scan will follow via computer,mail, or access clerk delivery.Performed at: [facility] [place] [id number] Director: Cassius Zhong PhD, Phone: [phone] Platelet mean volume Auto (B ld) [Entitic vol]on 06-29-2024 Platelet mean volume (Bld) [Entitic vol] Platelet mean volume [Entitic volume] in Blood by Automated count 9.5-13.5 [facility] Platelets Auto (Bld) [#/Vol] on 06-29-2024 Platelets (Bld) [#/Vol] Platelets [#/vol ume] in Blood by Automated count 150-450 [facility] Protein [Mass/volume] in Ser um or Plasmaon 06-29-2024 Protein [Mass/Vol] Protein [Mass/volume ] in Serum or Plasma 6.0-8.5 [facility] RBC Auto (Bld) [#/Vol]on RBC (Bld) [#/Vol] Erythrocytes [#/volu me] in Blood by Automated count 4.20-5.40 [facility] Serum globulin measurement ( mass/volume)on 06-29-2024 Globulin (S) [Mass/Vol] Serum globulin measurement (mass/volume) 2.2-3.9 [facility] Serum or plasma albumin/glob ulin mass ratioon 06-29-2024 Albumin/Globulin [Mass ratio] Serum or plasma albumin/globulin mass ratio 0.7-1.7 [facility] Serum or plasma alpha 1 glob ulin measurement by electrophoresis (mass/volume)on 06-29-2024 Alpha 1 globulin Elph [Mass/Vol] Serum or plasma alpha 1 globulin measurement by electrophoresis (mass/volume) 0.0-0.4 [facility] Serum or plasma alpha 2 glob ulin measurement by electrophoresis (mass/volume)on 06-29-2024 Alpha 2 globulin Elph [Mass/Vol] Serum or plasma alpha 2 globulin measurement by electrophoresis (mass/volume) 0.4-1.0 [facility] Serum or plasma beta globuli n measurement by electrophoresis (mass/volume)on 06-29-2024 Beta globulin Elph [Mass/Vol] Serum or plasma beta globulin measurement by electrophoresis (mass/volume) 0.7-1.3 [facility] Serum or plasma gamma globul in measurement by electrophoresis (mass/volume)on 06-29-2024 Gamma globulin Elph [Mass/Vol] Serum or plasma gamma globulin measurement by electrophoresis (mass/volume) 0.4-1.8 [facility] Serum or plasma immunoelectr ophoresis interpretationon 06-29-2024 Interpretation IEP [Interp] Serum or plasma immunoelectrophoresis interpretation . [facility] Comment on above: No monoclonality det ected. Laboratory - Chemistry and C hemistry - challengeon 06-25-2024 Bilirubin Ql (U) 0 [facility] Glucose (U) [Mass/Vol] 0 mg[facility] Ketones Ql (U) 0 [facility] pH (U) 5.0 [pH] [facility] Specific gravity (U) [Rel density] 1.020 [facility] Urobilinogen (U) [Mass/Vol] 0.2 mg/dL [facility] Laboratory - Specimen inform ationon 06-25-2024 Appearance (U) cloudy [facility] Color (U) yellow [facility] Laboratory - Urinalysison Leukocyte esterase Test strip Ql (U) 0 [facility] Nitrite Ql (U) Negative [facility] Protein Ql (U) Trace [facility] No Panel Informationon 06-25 Urine Occult Blood 0 [facility] Urine Cultureon 06-25-2024 Bacteria identified Cx Nom (U) 30,000 colonies/ml mixed bacterial skin contaminants 2 Days PERFORMED BY: [place] [address] PATHOLOGIST COAL DRIER OPERATOR NESHA MAIER M.D. Normal [facility] Comment on above: Performed By: #### C UU #### [facility] [address] Urine cultureOrdered By: Keesha Marc on 06-25-2024 Bacteria identified Cx Nom (U) Urine culture [facility] Basophils Auto (Bld) [#/Vol] on 06-15-2024 Basophils (Bld) [#/Vol] 0.1 10 3/uL 0.0-0.1 [facility] Basophils (Bld) [#/Vol] Automated basoph il count 0.0-0.1 [facility] Basophils/100 WBC Auto (Bld) on 06-15-2024 Basophils/100 WBC (Bld) 0.7 % 0.2-2.0 [facility] Basophils/100 WBC (Bld) Automated basophil % 0. 2-2.0 [facility] Chlamydia trachomatis DNA [P resence] in Specimen by SURI with probe detectionOrdered By: Casandra Hassan on 06-15-2024 C. trachomatis DNA SURI+probe Ql (Unsp spec) Negative Negative [facility] C. trachomatis DNA SURI+probe Ql (Unsp spec) Chlamydia trachomatis DNA [Presence] in Specimen by SURI with probe detection Negative [facility] Chlamydia/GC/Trich NAAon Chlamydia Trachomotis, SURI Negative Normal Negative [facility] Comment on above: Performed By: #### C UU #### [facility] [address] [place] [address] [place] #### GCCHLAMTRI #### [facility] , Neisseria Gonorrhoeae, SURI Negative Normal Negative [facility] Comment on above: Performed By: #### C UU #### [facility] [address] #### GCCHLAMTRI #### [facility] , Trichomonas SURI Negative Normal Negative [facility] Comment on above: Result Comment: Perf ormed at: =G - [facility] [address] [place], [place] [id number] Third Loader: Monse Cardona MD, Phone: [phone] PERFORMED BY: [place] [address] PATHOLOGIST COAL DRIER OPERATOR NESHA MAIER M.D. Performed By: #### C UU #### [facility] [address] #### GCCHLAMTRI #### [facility] , Eosinophils/100 WBC Auto (Bl d)on 06-15-2024 Eosinophils/100 WBC (Bld) 1.1 % 0.9-7.0 [facility] Eosinophils/100 WBC (Bld) Automated eosinophil % 0.9-7.0 [facility] Erythrocyte distribution wid th Auto (RBC) [Ratio]on 06-15-2024 Erythrocyte distribution width (RBC) [Ratio] 16.4 % High 11.0-15.0 [facility] Erythrocyte distribution width (RBC) [Ratio] Erythrocyte distribution width [Ratio] by Automated count High 11.0-15.0 [facility] Estimated glomerular filtrat ion rate (GFR) non- Americanon 06-15-2024 GFR/1.73 sq M.predicted among non-blacks MDRD (S/P/Bld) [Vol rate/Area] mL/min/{1.73_m2} >=60 mL/min/1.7 3m 2 [facility] GFR/1.73 sq M.predicted among non-blacks MDRD (S/P/Bld) [Vol rate/Area] Estimated glomerular filtration rate (GFR) non- >=60 mL/min/1.7 3m 2 [facility] Globulin Calc (S) [Mass/Vol] on 06-15-2024 Globulin (S) [Mass/Vol] 4.1 g/dL [facility] Globulin (S) [Mass/Vol] Serum globulin measurement by calculation (mass/volume) [facility] HCG ( test) IAClaudiarapi d Ql (U)on 06-15-2024 HCG ( test) Ql (U) Negative NEGATIVE [facility] HCG ( test) Ql (U) Urine human chorionic gonadotropin (hCG) detection by immunoassay NEGATIVE [facility] Hematocrit Auto (Bld) [Volum e fraction]on 06-15-2024 Hematocrit (Bld) [Volume fraction] 42.5 % 36.0-48.0 [facility] Hematocrit (Bld) [Volume fraction] Hematocrit [Volume Fraction] of Blood by Automated count 36.0-48.0 [facility] Hemoglobin [Mass/volume] in Bloodon 06-15-2024 Hemoglobin (Bld) [Mass/Vol] 13.6 g/dL 12.0-16.0 [facility] Hemoglobin (Bld) [Mass/Vol] Hemoglobin [Mass/volume] in Blood 12.0-16.0 [facility] Laboratory - Chemistry and C hemistry - challengeon 06-15-2024 Bilirubin Ql (U) Negative NEGATIVE [facility] Glucose (U) [Mass/Vol] Negative NEGATIVE [facility] Ketones Ql (U) Negative NEGATIVE [facility] pH (U) 6.0 [pH] 5.0-9.0 [facility] Specific gravity (U) [Rel density] 1.025 1.005-1.02 5 [facility] Urobilinogen Qn (U) 0.2 {Tamiko'U}/dL 0.2-1.0 [facility] Albumin [Mass/Vol] 3.6 g/dL 3.4-5.0 [facility] ALP [Catalytic activity/Vol] 76 U/L 46-116 [facility] ALT [Catalytic activity/Vol] 46 U/L 14-59 [facility] AST [Catalytic activity/Vol] 29 U/L 15-37 [facility] Bilirubin [Mass/Vol] 0.4 mg/dL 0.2-1.0 [facility] Calcium [Mass/Vol] 9.5 mg/dL 8.5-10.1 [facility] Chloride [Moles/Vol] 103 mmol/L 98-107 [facility] CO2 [Moles/Vol] 26.4 mmol/L 21.0-32.0 [facility] Creatinine [Mass/Vol] 0.83 mg/dL 0.55-1.02 [facility] GFR/1.73 sq M.predicted MDRD (S/P/Bld) [Vol rate/Area] mL/min/{1.73_m2} >=60 mL/min/1.7 3m 2 [facility] Glucose [Mass/Vol] 102 mg/dL 74-106 [facility] Lactate [Moles/Vol] 1.9 mmol/L 0.4-2.0 [facility] Lipase [Catalytic activity/Vol] 32.0 U/L 16.0-77.0 [facility] Potassium [Moles/Vol] 3.9 mmol/L 3.5-5.1 [facility] Protein [Mass/Vol] 7.7 g/dL 6.4-8.2 [facility] Sodium [Moles/Vol] 139 mmol/L 136-145 [facility] Urea nitrogen [Mass/Vol] 9.0 mg/dL 7.0-18.0 [facility] Urea nitrogen/Creatinine [Mass ratio] 10.8 mg/mg [facility] Laboratory - Hematology and Cell countson 06-15-2024 Immature granulocytes/100 WBC (Bld) 0.2 % 0.0-0.5 [facility] Laboratory - Microbiology an d Antimicrobial susceptibilityOrdered By: Casandra Hassan on 06-15-2024 Bacteria identified Cx Nom (U) Escherichia coli (ESBL) Abnormal [facility] Laboratory - Specimen inform ationon 06-15-2024 Appearance (U) CLEAR CLEAR [facility] Color (U) LT. YELLOW YELLOW [facility] Laboratory - Urinalysison Leukocyte esterase Test strip Ql (U) TRACE Abnormal NEGATIVE [facility] Mucus Ql (Urine sed) TRACE Abnormal NONE SEEN [facility] Nitrite Ql (U) Positive Abnormal NEGATIVE [facility] Protein Ql (U) >=300 mg/dL Abnormal NEG/TRACE [facility] Leukocytes [#/volume] correc carmelita for nucleated erythrocytes in Blood by Automated counon 06-15-2024 WBC corrected for nucl RBC Auto (Bld) [#/Vol] 12.7 10 3/uL High 4.0-11.0 [facility] WBC corrected for nucl RBC Auto (Bld) [#/Vol] Leukocytes [#/volume] corrected for nucleated erythrocytes in Blood by Automated coun High 4.0-11.0 [facility] Lymphocytes Auto (Bld) [#/Vo l]on 06-15-2024 Lymphocytes (Bld) [#/Vol] 2.9 10 3/uL 1.2-3.8 [facility] Lymphocytes (Bld) [#/Vol] Lymphocytes [#/volume] in Blood by Automated count 1.2-3.8 [facility] Lymphocytes/100 WBC Auto (Bl d)on 06-15-2024 Lymphocytes/100 WBC (Bld) 23.0 % 20.5-60.0 [facility] Lymphocytes/100 WBC (Bld) Lymphocytes/100 leukocytes in Blood by Automated count 20.5-60.0 [facility] MCH Auto (RBC) [Entitic mass ]on 06-15-2024 MCH (RBC) [Entitic mass] 26.7 pg 26.7-34.0 [facility] MCH (RBC) [Entitic mass] MCH [Entitic mass] by Automated count 26.7-34.0 [facility] MCHC Auto (RBC) [Mass/Vol]on 06-15-2024 MCHC (RBC) [Mass/Vol] 32.0 g/dL 29.9-35.2 [facility] MCHC (RBC) [Mass/Vol] MCHC [Mass/volume] by Automated count 29.9-35.2 [facility] MCV Auto (RBC) [Entitic vol] on 06-15-2024 MCV (RBC) [Entitic vol] 83.5 fL 81.0-99.0 [facility] MCV (RBC) [Entitic vol] MCV [Entitic vol ume] by Automated count 81.0-99.0 [facility] Monocytes Auto (Bld) [#/Vol] on 06-15-2024 Monocytes (Bld) [#/Vol] 0.6 10 3/uL 0.3-0.8 [facility] Monocytes (Bld) [#/Vol] Automated blood monocyte count 0.3-0.8 [facility] Monocytes/100 WBC Auto (Bld) on 06-15-2024 Monocytes/100 WBC (Bld) 4.9 % 1.7-12.0 [facility] Monocytes/100 WBC (Bld) Automated monocyte % 1. 7-12.0 [facility] Neisseria gonorrhoeae DNA [P resence] in Specimen by SURI with probe detectionOrdered By: Casandra Hassan on 06-15-2024 N. gonorrhoeae DNA SURI+probe Ql (Unsp spec) Negative Negative [facility] N. gonorrhoeae DNA SURI+probe Ql (Unsp spec) Neisseria gonorrhoeae DNA [Presence] in Specimen by SURI with probe detection Negative [facility] Neutrophils Auto (Bld) [#/Vo l]on 06-15-2024 Neutrophils (Bld) [#/Vol] 8.9 10 3/uL High 1.4-6.5 [facility] Neutrophils (Bld) [#/Vol] Neutrophils [#/volume] in Blood by Automated count High 1.4-6.5 [facility] Neutrophils/100 WBC Auto (Bl d)on 06-15-2024 Neutrophils/100 WBC (Bld) 70.1 % 43.0-75.0 [facility] Neutrophils/100 WBC (Bld) Automated neutrophil % 43.0-75.0 [facility] No Panel Informationon 06-15 Miscellaneous Test Comment See comment [facility] Comment on above: Specimen Source: UCC - Urine,Clean Catch - Urine CC - 200.100 Urine Bacteria SMALL #/HPF Abnormal NONE SEEN [facility] Urine Culture Reflexed YES [facility] Urine Culture Result 1 \R\ Urine Culture , Routine\R\ Organism: Gram negative jus : [facility] Urine Microscopic Review YES [facility] Urine Occult Blood MODERATE Abnormal NEGATIVE [facility] Urine Other Casts NONE SEEN #/LPF NONE SEEN [facility] Urine Other Crystals None Seen #/HPF None Seen [facility] Urine RBC 10-20 #/HPF Abnormal 0-2 [facility] Urine Squamous Epithelial Cells FEW #/LPF Abnormal NONE/RARE [facility] Urine WBC 20-50 #/HPF Abnormal NONE SEEN [facility] Eosinophils # (Auto) 0.1 10 3/uL 0.0-0.7 [facility] Immature Granulocyte # (Auto) 0.03 10 3/uL 0.00-0.03 [facility] Platelet mean volume Auto (B ld) [Entitic vol]on 06-15-2024 Platelet mean volume (Bld) [Entitic vol] 10.0 fL 9.-13.5 [facility] Platelet mean volume (Bld) [Entitic vol] Platelet mean volume [Entitic volume] in Blood by Automated count 9.-13.5 [facility] Platelets Auto (Bld) [#/Vol] on 06-15-2024 Platelets (Bld) [#/Vol] 308 10 3/uL 150-450 [facility] Platelets (Bld) [#/Vol] Platelets [#/vol ume] in Blood by Automated count 150-450 [facility] RBC Auto (Bld) [#/Vol]on RBC (Bld) [#/Vol] 5.09 10 6/uL 4.20-5.40 [facility] RBC (Bld) [#/Vol] Erythrocytes [#/volu me] in Blood by Automated count 4.20-5.40 [facility] Serum or plasma albumin/glob ulin mass ratioon 06-15-2024 Albumin/Globulin [Mass ratio] 0.9 {ratio} [facility] Albumin/Globulin [Mass ratio] Serum or plasma albumin/globulin mass ratio [facility] Serum or plasma anion gap de terminationon 06-15-2024 Anion gap [Moles/Vol] 13.5 mmol/L [facility] Anion gap [Moles/Vol] Serum or plasma an ion gap determination [facility] Trichomonas vaginalis DNA [P resence] in Specimen by SURI with probe detectionOrdered By: Casandra Hassan on 06-15-2024 T. vaginalis DNA SURI+probe Ql (Unsp spec) Negative Negative [facility] Comment on above: Performed at: [facility] [place] [place], [place] [id number] Director: Monse Cardona MD, Phone: [phone] T. vaginalis DNA SURI+probe Ql (Unsp spec) Trichomonas vaginalis DNA [Presence] in Specimen by SURI with probe detection Negative [facility] Comment on above: Performed at: =G - [facility] [address] [id number] Director: Monse Cardona MD, Phone: [phone] Urine Cultureon 06-15-2024 Bacteria identified Cx Nom (U) ORGANISM: Escherichia coli (ESBL) (O:ESCCOLESBL) [place] Count >100,000 Aerobic RENATE Charge ([id number]) -- [...] RESISTANT TO ALL B-LACTAM DRUGS. PERFORMED BY: [place] [address] PATHOLOGIST COAL DRIER OPERATOR NESHA MAIER M.D. Normal [facility] Comment on above: Performed By: #### C UU #### [address] #### GCCHLAMTRI #### [facility] , Urine cultureOrdered By: Eulalio Hassan on 06-15-2024 Bacteria identified Cx Nom (U) Abnormal [facility] Iron binding capacity [Mass/ volume] in Serum or Plasmaon 06-07-2024 Iron binding capacity [Mass/Vol] 411.0 ug/dL 250.0-450. 0 [facility] Iron binding capacity [Mass/Vol] Iron binding capacity [Mass/volume] in Serum or Plasma 250.0-450. 0 [facility] Iron saturation [Mass Fracti on] in Serum or Plasmaon 06-07-2024 Iron saturation [Mass fraction] 13.4 % [facility] Iron saturation [Mass fraction] Iron saturation [Mass Fraction] in Serum or Plasma [facility] Laboratory - Chemistry and C hemistry - challengeon 06-07-2024 Iron [Mass/Vol] 55.0 ug/dL 50.0-170.0 [facility] Iron binding capacity [Mass/ volume] in Serum or Plasmaon 04-21-2024 Iron binding capacity [Mass/Vol] 495.0 ug/dL High 250.0-450. 0 [facility] Iron binding capacity [Mass/Vol] Iron binding capacity [Mass/volume] in Serum or Plasma High 250.0-450. 0 [facility] Iron saturation [Mass Fracti on] in Serum or Plasmaon 04-21-2024 Iron saturation [Mass fraction] 15.4 % [facility] Iron saturation [Mass fraction] Iron saturation [Mass Fraction] in Serum or Plasma [facility] Laboratory - Chemistry and C hemistry - challengeon 04-21-2024 Cobalamin (Vitamin B12) [Mass/Vol] 815 pg/mL [id number] [facility] Comment on above: Performed at: [address] [id number] Director: Cassius Zhong PhD, Phone: [phone] Iron [Mass/Vol] 76.0 ug/dL 50.0-170.0 [facility] TSH Qn 2.211 m[IU]/L 0.358-3.74 0 [facility] Basophils Auto (Bld) [#/Vol] on 04-12-2024 Basophils (Bld) [#/Vol] 0.1 10 3/uL 0.0-0.1 [facility] Basophils (Bld) [#/Vol] Automated basoph il count 0.0-0.1 [facility] Basophils/100 WBC Auto (Bld) on 04-12-2024 Basophils/100 WBC (Bld) 0.6 % 0.2-2.0 [facility] Basophils/100 WBC (Bld) Automated basophil % 0. 2-2.0 [facility] Buprenorphine [Presence] in Urineon 04-12-2024 Buprenorphine Ql (U) Negative NEGATIVE [facility] Comment on above: DRUG CLASS TEST SYST EM CUT-OFF CONCENTRATIONS ARE ASFOLLOWS:AMP (Amphetamine): 500 ng/mLBAR (Barbiturates): 200 ng/mLBZO (Benzodiazepines): 150 ng/mLBUP (Buprenorphine): 10 ng/mLCOC (Cocaine): 150 ng/mLmAMP (Methamphetamine): 500 ng/mLMTD (Methadone): 200 ng/mLOPI (Opiates): 100 ng/mLOXY (Oxycodone): 100 ng/mLPCP (Phencyclidine): 25 ng/mLTHC (Cannabinoids): 50 ng/mLTCA (Trycyclic Antidepressants): 300 ng/mL Buprenorphine Ql (U) Buprenorphine [Presence] in Urine NEGATIVE [facility] Comment on [...] 04-12-2024 Eosinophils/100 WBC (Bld) 1.0 % 0.9-7.0 [facility] Eosinophils/100 WBC (Bld) Automated eosinophil % 0.9-7.0 [facility] Erythrocyte distribution wid th Auto (RBC) [Ratio]on 04-12-2024 Erythrocyte distribution width (RBC) [Ratio] 17.4 % High 11.0-15.0 [facility] Erythrocyte distribution width (RBC) [Ratio] Erythrocyte distribution width [Ratio] by Automated count High 11.0-15.0 [facility] Estimated glomerular filtrat ion rate (GFR) non- Americanon 04-12-2024 GFR/1.73 sq M.predicted among non-blacks MDRD (S/P/Bld) [Vol rate/Area] mL/min/{1.73_m2} >=60 [facility] GFR/1.73 sq M.predicted among non-blacks MDRD (S/P/Bld) [Vol rate/Area] Estimated glomerular filtration rate (GFR) non- >=60 [facility] Globulin Calc (S) [Mass/Vol] on 04-12-2024 Globulin (S) [Mass/Vol] 4.1 g/dL [facility] Globulin (S) [Mass/Vol] Serum globulin measurement by calculation (mass/volume) [facility] HCG ( test) Bello d Ql (U)on 04-12-2024 HCG ( test) Ql (U) Negative NEGATIVE [facility] HCG ( test) Ql (U) Urine human chorionic gonadotropin (hCG) detection by immunoassay NEGATIVE [facility] Hematocrit Auto (Bld) [Volum e fraction]on 04-12-2024 Hematocrit (Bld) [Volume fraction] 37.9 % 36.0-48.0 [facility] Hematocrit (Bld) [Volume fraction] Hematocrit [Volume Fraction] of Blood by Automated count 36.0-48.0 [facility] Hemoglobin [Mass/volume] in Bloodon 04-12-2024 Hemoglobin (Bld) [Mass/Vol] 11.6 g/dL Low 12.0-16.0 [facility] Hemoglobin (Bld) [Mass/Vol] Hemoglobin [Mass/volume] in Blood Low 12.0-16.0 [facility] Laboratory - Chemistry and C hemistry - challengeon 04-12-2024 Albumin [Mass/Vol] 3.3 g/dL Low 3.4-5.0 [facility] ALP [Catalytic activity/Vol] 75 U/L 46-116 [facility] ALT [Catalytic activity/Vol] 36 U/L 14-59 [facility] AST [Catalytic activity/Vol] 19 U/L 15-37 [facility] Bilirubin [Mass/Vol] 0.3 mg/dL 0.2-1.0 [facility] Calcium [Mass/Vol] 8.6 mg/dL 8.5-10.1 [facility] Chloride [Moles/Vol] 101 mmol/L 98-107 [facility] CO2 [Moles/Vol] 28.7 mmol/L 21.0-32.0 [facility] Creatinine [Mass/Vol] 0.70 mg/dL 0.55-1.02 [facility] GFR/1.73 sq M.predicted MDRD (S/P/Bld) [Vol rate/Area] mL/min/{1.73_m2} >=60 [facility] Glucose [Mass/Vol] 103 mg/dL 74-106 [facility] Potassium [Moles/Vol] 3.7 mmol/L 3.5-5.1 [facility] Protein [Mass/Vol] 7.4 g/dL 6.4-8.2 [facility] Sodium [Moles/Vol] 136 mmol/L 136-145 [facility] Urea nitrogen [Mass/Vol] 10.0 mg/dL 7.0-18.0 [facility] Urea nitrogen/Creatinine [Mass ratio] 14.3 mg/mg [facility] Bilirubin Ql (U) Negative NEGATIVE [facility] Glucose (U) [Mass/Vol] Negative NEGATIVE [facility] Ketones Ql (U) Negative NEGATIVE [facility] pH (U) 6.0 [pH] 5.0-9.0 [facility] Specific gravity (U) [Rel density] >=1.030 Abnormal 1.005-1.02 5 [facility] Urobilinogen Qn (U) 0.2 {Tamiko'U}/dL 0.2-1.0 [facility] Laboratory - Drug toxicology on 04-12-2024 Amphetamines Ql (U) Negative NEGATIVE [facility] Benzodiazepines Ql (U) Negative NEGATIVE [facility] Cocaine Ql (U) Negative NEGATIVE [facility] Opiates Ql (U) Negative NEGATIVE [facility] Phencyclidine Ql (U) Negative NEGATIVE [facility] Laboratory - Hematology and Cell countson 04-12-2024 Immature granulocytes/100 WBC (Bld) 0.3 % 0.0-0.5 [facility] Laboratory - Specimen inform ationon 04-12-2024 Appearance (U) CLEAR CLEAR [facility] Color (U) YELLOW YELLOW [facility] Laboratory - Urinalysison Leukocyte esterase Test strip Ql (U) Negative NEGATIVE [facility] Mucus Ql (Urine sed) TRACE Abnormal NONE SEEN [facility] Nitrite Ql (U) Negative NEGATIVE [facility] Protein Ql (U) Negative NEG/TRACE [facility] Leukocytes [#/volume] correc carmelita for nucleated erythrocytes in Blood by Automated counon 04-12-2024 WBC corrected for nucl RBC Auto (Bld) [#/Vol] 9.9 10 3/uL 4.0-11.0 [facility] WBC corrected for nucl RBC Auto (Bld) [#/Vol] Leukocytes [#/volume] corrected for nucleated erythrocytes in Blood by Automated coun 4.0-11.0 [facility] Lymphocytes Auto (Bld) [#/Vo l]on 04-12-2024 Lymphocytes (Bld) [#/Vol] 3.5 10 3/uL 1.2-3.8 [facility] Lymphocytes (Bld) [#/Vol] Lymphocytes [#/volume] in Blood by Automated count 1.2-3.8 [facility] Lymphocytes/100 WBC Auto (Bl d)on 04-12-2024 Lymphocytes/100 WBC (Bld) 35.5 % 20.5-60.0 [facility] Lymphocytes/100 WBC (Bld) Lymphocytes/100 leukocytes in Blood by Automated count 20.5-60.0 [facility] MCH Auto (RBC) [Entitic mass ]on 04-12-2024 MCH (RBC) [Entitic mass] 24.5 pg Low 26.7-34.0 [facility] MCH (RBC) [Entitic mass] MCH [Entitic mass] by Automated count Low 26.7-34.0 [facility] MCHC Auto (RBC) [Mass/Vol]on 04-12-2024 MCHC (RBC) [Mass/Vol] 30.6 g/dL 29.9-35.2 [facility] MCHC (RBC) [Mass/Vol] MCHC [Mass/volume] by Automated count 29.9-35.2 [facility] MCV Auto (RBC) [Entitic vol] on 04-12-2024 MCV (RBC) [Entitic vol] 80.1 fL Low 81.0-99.0 [facility] MCV (RBC) [Entitic vol] MCV [Entitic vol ume] by Automated count Low 81.0-99.0 [facility] Methadone [Presence] in Urin e by Screen methodon 04-12-2024 Methadone Screen Ql (U) Negative NEGATIVE [facility] Methadone Screen Ql (U) Methadone [Prese nce] in Urine by Screen method NEGATIVE [facility] Monocytes Auto (Bld) [#/Vol] on 04-12-2024 Monocytes (Bld) [#/Vol] 0.5 10 3/uL 0.3-0.8 [facility] Monocytes (Bld) [#/Vol] Automated blood monocyte count 0.3-0.8 [facility] Monocytes/100 WBC Auto (Bld) on 04-12-2024 Monocytes/100 WBC (Bld) 4.7 % 1.7-12.0 [facility] Monocytes/100 WBC (Bld) Automated monocyte % 1. 7-12.0 [facility] Neutrophils Auto (Bld) [#/Vo l]on 04-12-2024 Neutrophils (Bld) [#/Vol] 5.7 10 3/uL 1.4-6.5 [facility] Neutrophils (Bld) [#/Vol] Neutrophils [#/volume] in Blood by Automated count 1.4-6.5 [facility] Neutrophils/100 WBC Auto (Bl d)on 04-12-2024 Neutrophils/100 WBC (Bld) 57.9 % 43.0-75.0 [facility] Neutrophils/100 WBC (Bld) Automated neutrophil % 43.0-75.0 [facility] No Panel Informationon 04-12 Acetaminophen Level <2.0 ug/mL Low 10.0-30.0 [facility] Eosinophils # (Auto) 0.1 10 3/uL 0.0-0.7 [facility] Ethyl Alcohol Level <3 mg/dL [facility] Comment on above: NOTE: 80 mg/dl is th e legal limit for a blood alcohol level Immature Granulocyte # (Auto) 0.03 10 3/uL 0.00-0.03 [facility] Salicylates Level <2.8 mg/dL <=19.9 [facility] Urine Bacteria SMALL #/HPF Abnormal NONE SEEN [facility] Urine Barbiturates Screen Negative NEGATIVE [facility] Urine Culture Reflexed YES [facility] Urine Marijuana (THC) Screen Negative NEGATIVE [facility] Urine Methamphetamines Screen Negative NEGATIVE [facility] Urine Occult Blood Negative NEGATIVE [facility] Urine Other Casts NONE SEEN #/LPF NONE SEEN [facility] Urine Other Crystals None Seen #/HPF None Seen [facility] Urine RBC 0-2 #/HPF 0-2 [facility] Urine Squamous Epithelial Cells FEW #/LPF Abnormal NONE/RARE [facility] Urine Transitional Epithelial Cells RARE #/LPF Abnormal NONE SEEN [facility] Urine WBC 2-5 #/HPF Abnormal NONE SEEN [facility] Platelet mean volume Auto (B ld) [Entitic vol]on 04-12-2024 Platelet mean volume (Bld) [Entitic vol] 10.2 fL 9.5-13.5 [facility] Platelet mean volume (Bld) [Entitic vol] Platelet mean volume [Entitic volume] in Blood by Automated count 9.5-13.5 [facility] Platelets Auto (Bld) [#/Vol] on 04-12-2024 Platelets (Bld) [#/Vol] 299 10 3/uL 150-450 [facility] Platelets (Bld) [#/Vol] Platelets [#/vol ume] in Blood by Automated count 150-450 [facility] RBC Auto (Bld) [#/Vol]on RBC (Bld) [#/Vol] 4.73 10 6/uL 4.20-5.40 [facility] RBC (Bld) [#/Vol] Erythrocytes [#/volu me] in Blood by Automated count 4.20-5.40 [facility] Serum or plasma albumin/glob ulin mass ratioon 04-12-2024 Albumin/Globulin [Mass ratio] 0.8 {ratio} [facility] Albumin/Globulin [Mass ratio] Serum or plasma albumin/globulin mass ratio [facility] Serum or plasma anion gap de terminationon 04-12-2024 Anion gap [Moles/Vol] 10.0 mmol[facility] Anion gap [Moles/Vol] Serum or plasma an ion gap determination [facility] Urine tricyclic antidepressa nt measurementon 04-12-2024 Tricyclic antidepressants (U) [Mass/Vol] Negative NEGATIVE [facility] Tricyclic antidepressants (U) [Mass/Vol] Urine tricyclic antidepressant measurement NEGATIVE [facility] oxyCODONE+oxyMORphone [Prese nce] in Urine by Screen methodon 04-12-2024 oxyCODONE+oxyMORphone Screen Ql (U) Negative NEGATIVE [facility] oxyCODONE+oxyMORphone Screen Ql (U) oxyCODONE+oxyMORphone [Presence] in Urine by Screen method NEGATIVE [facility] Basophils Auto (Bld) [#/Vol] on 11-03-2023 Basophils (Bld) [#/Vol] 0.0 10 3/uL 0.0-0.1 [facility] Basophils/100 WBC Auto (Bld) on 11-03-2023 Basophils/100 WBC (Bld) 0.5 % 0.2-2.0 [facility] Eosinophils/100 WBC Auto (Bl d)on 11-03-2023 Eosinophils/100 WBC (Bld) 1.4 % 0.9-7.0 [facility] Erythrocyte distribution wid th Auto (RBC) [Ratio]on 11-03-2023 Erythrocyte distribution width (RBC) [Ratio] 16.3 % 11.0-15.0 [facility] Estimated glomerular filtrat ion rate (GFR) non- Americanon 11-03-2023 GFR/1.73 sq M.predicted among non-blacks MDRD (S/P/Bld) [Vol rate/Area] mL/min/{1.73_m2} >=60 [facility] Globulin Calc (S) [Mass/Vol] on 11-03-2023 Globulin (S) [Mass/Vol] 4.0 g/dL [facility] Hematocrit Auto (Bld) [Volum e fraction]on 11-03-2023 Hematocrit (Bld) [Volume fraction] 26.1 % 36.0-48.0 [facility] Hemoglobin [Mass/volume] in Bloodon 11-03-2023 Hemoglobin (Bld) [Mass/Vol] 7.8 g/dL 12.0-16.0 [facility] Human papilloma virus 16+18+ 31+33+35+39+45+51+52+56+58+59+66+68 DNA [Presence] in [place]ina 11-03-2023 HPV 16+18+31+33+35+39+45+51 +52+56+58+59+66+68 DNA Probe+sig amp Ql (Cvx) Negative Negative [facility] Comment on above: This nucleic acid am plification test detects fourteen high-risk HPV types (16,18,31,33,35,39,45,51,52,56,58,59,66,68)without differentiation.Performed at: =G - [facility] [address] [id number] Director: Monse Cardona MD, Phone: [phone] at: WB - [facility] [address] [id number] Director: Monse Cardona MD, Phone: [phone] Iron binding capacity [Mass/ volume] in Serum or Plasmaon 11-03-2023 Iron binding capacity [Mass/Vol] 512.0 ug/dL 250.0-450. 0 [facility] Iron saturation [Mass Fracti on] in Serum or Plasmaon 11-03-2023 Iron saturation [Mass fraction] 2.7 % [facility] Laboratory - Chemistry and C hemistry - challengeon 11-03-2023 Albumin [Mass/Vol] 3.1 g/dL 3.4-5.0 [facility] ALP [Catalytic activity/Vol] 63 U/L 46-116 [facility] ALT [Catalytic activity/Vol] 29 U/L 14-59 [facility] AST [Catalytic activity/Vol] 18 U/L 15-37 [facility] Bilirubin [Mass/Vol] 0.2 mg/dL 0.2-1.0 [facility] Calcium [Mass/Vol] 8.7 mg/dL 8.5-10.1 [facility] Chloride [Moles/Vol] 102 mmol/L 98-107 [facility] CO2 [Moles/Vol] 27.6 mmol/L 21.0-32.0 [facility] Creatinine [Mass/Vol] 0.70 mg/dL 0.55-1.02 [facility] Ferritin [Mass/Vol] 6.0 ng/mL 8.0-252.0 [facility] GFR/1.73 sq M.predicted MDRD (S/P/Bld) [Vol rate/Area] mL/min/{1.73_m2} >=60 [facility] Glucose [Mass/Vol] 103 mg/dL 74-106 [facility] Iron [Mass/Vol] 14.0 ug/dL 50.0-170.0 [facility] Potassium [Moles/Vol] 3.8 mmol/L 3.5-5.1 [facility] Protein [Mass/Vol] 7.1 g/dL 6.4-8.2 [facility] Sodium [Moles/Vol] 139 mmol/L 136-145 [facility] Urea nitrogen [Mass/Vol] 11.0 mg/dL 7.0-18.0 [facility] Urea nitrogen/Creatinine [Mass ratio] 15.7 mg/mg [facility] Laboratory - Hematology and Cell countson 11-03-2023 Immature granulocytes/100 WBC (Bld) 0.4 % 0.0-0.5 [facility] Leukocytes [#/volume] correc carmelita for nucleated erythrocytes in Blood by Automated counon 11-03-2023 WBC corrected for nucl RBC Auto (Bld) [#/Vol] 7.4 10 3/uL 4.0-11.0 [facility] Lymphocytes Auto (Bld) [#/Vo l]on 11-03-2023 Lymphocytes (Bld) [#/Vol] 2.5 10 3/uL 1.2-3.8 [facility] Lymphocytes/100 WBC Auto (Bl d)on 11-03-2023 Lymphocytes/100 WBC (Bld) 33.6 % 20.5-60.0 [facility] MCH Auto (RBC) [Entitic mass ]on 11-03-2023 MCH (RBC) [Entitic mass] 24.8 pg 26.7-34.0 [facility] MCHC Auto (RBC) [Mass/Vol]on 11-03-2023 MCHC (RBC) [Mass/Vol] 29.9 g/dL 29.9-35.2 [facility] MCV Auto (RBC) [Entitic vol] on 11-03-2023 MCV (RBC) [Entitic vol] 82.9 fL 81.0-99.0 [facility] Monocytes Auto (Bld) [#/Vol] on 11-03-2023 Monocytes (Bld) [#/Vol] 0.4 10 3/uL 0.3-0.8 [facility] Monocytes/100 WBC Auto (Bld) on 11-03-2023 Monocytes/100 WBC (Bld) 5.6 % 1.7-12.0 [facility] Neutrophils Auto (Bld) [#/Vo l]on 11-03-2023 Neutrophils (Bld) [#/Vol] 4.3 10 3/uL 1.4-6.5 [facility] Neutrophils/100 WBC Auto (Bl d)on 11-03-2023 Neutrophils/100 WBC (Bld) 58.5 % 43.0-75.0 [facility] No Panel Informationon 11-02 Eosinophils # (Auto) 0.1 10 3/uL 0.0-0.7 [facility] Immature Granulocyte # (Auto) 0.03 10 3/uL 0.00-0.03 [facility] HPV High Risk Other Comment Note . [facility] Comment on above: TESTS RESULT FLAG UN ITS REF RANGE LAB -DIAGNOSIS: 02 NEGATIVE FOR INTRAEPITHELIAL LESION OR MALIGNANCY.Specimen adequacy: 02 Satisfactory for evaluation. Endocervical and/or squamous metaplastic cells (endocervical component) are present.Performed by: Mikhail Escalante, Welding Machine Operator [employer] (ASCP). 02Note: Note 02 The Pap smear [...] Low,>-Panic High,A-Abnormal,AA-Critical Abnormal ------Performed at:02 WB [facility] [address] [id number] Monse Cardona MD, Reference Lab Test Patient Age Note . [facility] Comment on above: TESTS RESULT FLAG UN ITS REF RANGE LAB - Clinician Provided Cytology Information Source.............Cervix;Endocervix No. of containers..01 ThinPrep VialAge Leeo ACOG Elise... 31 FLAG LEGEND: L-Low Normal,H-High Normal,LL-Alert Low,HH-Alert High <-Panic Low,>-Panic High,A-Abnormal,AA-Critical Abnormal ------Performed at:01 =G [facility] [address] [place] [address] Monse Cardona MD, Platelet mean volume Auto (B ld) [Entitic vol]on 11-03-2023 Platelet mean volume (Bld) [Entitic vol] 9.6 fL 9.5-13.5 [facility] Platelets Auto (Bld) [#/Vol] on 11-03-2023 Platelets (Bld) [#/Vol] 323 10 3/uL 150-450 [facility] RBC Auto (Bld) [#/Vol]on RBC (Bld) [#/Vol] 3.15 10 6/uL 4.20-5.40 [facility] Serum or plasma albumin/glob ulin mass ratioon 11-03-2023 Albumin/Globulin [Mass ratio] 0.8 {ratio} [facility] Serum or plasma anion gap de terminationon 11-03-2023 Anion gap [Moles/Vol] 13.2 mmol/L Fi [facility] Basophils Auto (Bld) [#/Vol] on 10-30-2023 Basophils (Bld) [#/Vol] 0.0 10 3/uL 0.0-0.1 [facility] Basophils/100 WBC Auto (Bld) on 10-30-2023 Basophils/100 WBC (Bld) 0.6 % 0.2-2.0 [facility] Eosinophils/100 WBC Auto (Bl d)on 10-30-2023 Eosinophils/100 WBC (Bld) 1.2 % 0.9-7.0 [facility] Erythrocyte distribution wid th Auto (RBC) [Ratio]on 10-30-2023 Erythrocyte distribution width (RBC) [Ratio] 16.6 % 11.0-15.0 [facility] Estimated glomerular filtrat ion rate (GFR) non- Americanon 10-30-2023 GFR/1.73 sq M.predicted among non-blacks MDRD (S/P/Bld) [Vol rate/Area] mL/min/{1.73_m2} >=60 [facility] HCG ( test) IA.rapi d Ql (U)on 10-30-2023 HCG ( test) Ql (U) Negative NEGATIVE [facility] Hematocrit Auto (Bld) [Volum e fraction]on 10-30-2023 Hematocrit (Bld) [Volume fraction] 26.6 % 36.0-48.0 [facility] Hemoglobin [Mass/volume] in Bloodon 10-30-2023 Hemoglobin (Bld) [Mass/Vol] 7.9 g/dL 12.0-16.0 [facility] Laboratory - Chemistry and C hemistry - challengeon 10-30-2023 Calcium [Mass/Vol] 8.5 mg/dL 8.5-10.1 [facility] Chloride [Moles/Vol] 101 mmol/L 98-107 [facility] CO2 [Moles/Vol] 28.8 mmol/L 21.0-32.0 [facility] Creatinine [Mass/Vol] 0.62 mg/dL 0.55-1.02 [facility] GFR/1.73 sq M.predicted MDRD (S/P/Bld) [Vol rate/Area] mL/min/{1.73_m2} >=60 [facility] Glucose [Mass/Vol] 104 mg/dL 74-106 [facility] Potassium [Moles/Vol] 4.0 mmol/L 3.5-5.1 [facility] Sodium [Moles/Vol] 137 mmol/L 136-145 [facility] Urea nitrogen [Mass/Vol] 8.0 mg/dL 7.0-18.0 [facility] Urea nitrogen/Creatinine [Mass ratio] 12.9 mg/mg [facility] Laboratory - Hematology and Cell countson 10-30-2023 Immature granulocytes/100 WBC (Bld) 0.4 % 0.0-0.5 [facility] Leukocytes [#/volume] correc carmelita for nucleated erythrocytes in Blood by Automated counon 10-30-2023 WBC corrected for nucl RBC Auto (Bld) [#/Vol] 7.3 10 3/uL 4.0-11.0 [facility] Lymphocytes Auto (Bld) [#/Vo l]on 10-30-2023 Lymphocytes (Bld) [#/Vol] 2.2 10 3/uL 1.2-3.8 [facility] Lymphocytes/100 WBC Auto (Bl d)on 10-30-2023 Lymphocytes/100 WBC (Bld) 30.2 % 20.5-60.0 [facility] MCH Auto (RBC) [Entitic mass ]on 10-30-2023 MCH (RBC) [Entitic mass] 25.0 pg 26.7-34.0 [facility] MCHC Auto (RBC) [Mass/Vol]on 10-30-2023 MCHC (RBC) [Mass/Vol] 29.7 g/dL 29.9-35.2 [facility] MCV Auto (RBC) [Entitic vol] on 10-30-2023 MCV (RBC) [Entitic vol] 84.2 fL 81.0-99.0 [facility] Monocytes Auto (Bld) [#/Vol] on 10-30-2023 Monocytes (Bld) [#/Vol] 0.3 10 3/uL 0.3-0.8 [facility] Monocytes/100 WBC Auto (Bld) on 10-30-2023 Monocytes/100 WBC (Bld) 3.7 % 1.7-12.0 [facility] Neutrophils Auto (Bld) [#/Vo l]on 10-30-2023 Neutrophils (Bld) [#/Vol] 4.6 10 3/uL 1.4-6.5 [facility] Neutrophils/100 WBC Auto (Bl d)on 10-30-2023 Neutrophils/100 WBC (Bld) 63.9 % 43.0-75.0 [facility] No Panel Informationon 10-29 Eosinophils # (Auto) 0.1 10 3/uL 0.0-0.7 [facility] Immature Granulocyte # (Auto) 0.03 10 3/uL 0.00-0.03 [facility] Platelet mean volume Auto (B ld) [Entitic vol]on 10-30-2023 Platelet mean volume (Bld) [Entitic vol] 9.4 fL 9.5-13.5 [facility] Platelets Auto (Bld) [#/Vol] on 10-30-2023 Platelets (Bld) [#/Vol] 264 10 3/uL 150-450 [facility] RBC Auto (Bld) [#/Vol]on RBC (Bld) [#/Vol] 3.16 10 6/uL 4.20-5.40 [facility] Serum or plasma anion gap de terminationon 10-30-2023 Anion gap [Moles/Vol] 11.2 mmol/L [facility] HCG ( test) IA.rapi d Ql (U)on 10-06-2023 HCG ( test) Ql (U) Negative NEGATIVE [facility] COVID + FLU Quick Testingon 07-07-2023 SARS-CoV-2 (COVID-19) RNA SURI+probe Ql (Unsp spec) Negative [facility] Other COVID + FLU Quick Testing Negative [employer] Other Alanine aminotransferase [En zymatic activity/volume] in Serum or PlasmaOrdered By: Celio Mullins on 07-03-2023 ALT [Catalytic activity/Vol] 22 U/L 7-52 [facility] Albumin [Mass/volume] in Ser um or Plasma by Bromocresol green (BCG) dye binding methoOrdered By: Celio Mullins on 07-03-2023 Albumin BCG dye [Mass/Vol] 4.4 g/dL 3.5-5.7 [facility] Alkaline phosphatase [Enzyma tic activity/volume] in Serum or PlasmaOrdered By: Celio Mullins on 07-03-2023 ALP [Catalytic activity/Vol] 68 U/L 34-104 [facility] Aspartate aminotransferase [ Enzymatic activity/volume] in Serum or PlasmaOrdered By: Celio Mullins on 07-03-2023 AST [Catalytic activity/Vol] 18 U/L 13-39 [facility] Bilirubin.total [Mass/volume ] in Serum or PlasmaOrdered By: Celio Mullins on 07-03-2023 Bilirubin [Mass/Vol] 0.4 mg/dL 0.3-1.0 [facility] Calcium [Mass/volume] in Ser um or PlasmaOrdered By: Celio Mullins on 07-03-2023 Calcium [Mass/Vol] 9.4 mg/dL 8.6-10.3 [facility] Carbon dioxide, total [Moles /volume] in Serum or PlasmaOrdered By: Celio Mullins on 07-03-2023 CO2 [Moles/Vol] 30.1 mmol/L 21.0-31.0 [facility] Chloride [Moles/volume] in S marta or PlasmaOrdered By: Celio Mullins on 07-03-2023 Chloride [Moles/Vol] 105 mmol/L 98-107 [facility] Cholesterol [Mass/volume] in Serum or PlasmaOrdered By: Celio Mullins on 07-03-2023 Cholesterol [Mass/Vol] 126 mg/dL 140-200 [facility] Comment on above: Chol less than 200 m g/dl low riskChol 201-239 mg/dl borderline riskChol 240 mg/dl and greater high risk Cholesterol in LDL Calc [Mas s/Vol]Ordered By: eClio Mullins on 07-03-2023 Cholesterol in LDL [Mass/Vol] 69 mg/dL 0-100 [facility] Comment on above: LDL ATP III CLASSIFI CATIONLDL less than 100 mg/dL OptimalLDL 100-129 mg/dL Near or above optimalLDL 130-159 mg/dL Borderline highLDL 160-189 mg/dL HighLDL greater than 189 mg/dL Very high Cholesterol in VLDL Calc [Ma ss/Vol]Ordered By: Celio Mullins on 07-03-2023 Cholesterol in VLDL [Mass/Vol] 18 mg/dL [facility] Creatinine [Mass/volume] in Serum or PlasmaOrdered By: Celio Mullins on 07-03-2023 Creatinine [Mass/Vol] 0.63 mg/dL 0.60-1.20 [facility] Globulin Calc (S) [Mass/Vol] Ordered By: Celio Mullins on 07-03-2023 Globulin (S) [Mass/Vol] 3.1 g/dL [facility] Glucose [Mass/volume] in Ser um or PlasmaOrdered By: Celio Mullins on 07-03-2023 Glucose [Mass/Vol] 97 mg/dL 70-100 [facility] Comment on above: ADA recommended refe rence rangeRandom Glucose Reference Range is dependent on time and content of last meal. Glucose of more than 200 mg/dL in a nonstressed, ambulatory subject supports the diagnosis of Diabetes Mellitus. No Panel InformationOrdered By: Celio Mullins on 07-03-2023 Estimated GFR (CKD-EPI) > 60.0 mL/Min [facility] Creatinine Clearance (Chem N/A [facility] Potassium [Moles/volume] in Serum or PlasmaOrdered By: Celio Mullins on 07-03-2023 Potassium [Moles/Vol] 4.3 mmol/L 3.5-5.1 [facility] Protein [Mass/volume] in Ser um or PlasmaOrdered By: Celio Mullins on 07-03-2023 Protein [Mass/Vol] 7.5 g/dL 6.4-8.9 [facility] Serum or plasma albumin/glob ulin mass ratioOrdered By: Celio Mullins on 07-03-2023 Albumin/Globulin [Mass ratio] 1.4 {ratio} [facility] Serum or plasma anion gap de terminationOrdered By: Celio Mullins on 07-03-2023 Anion gap [Moles/Vol] 10.2 mmol/L 6.0-15.0 [facility] Serum or plasma high density lipoprotein (HDL) cholesterol measurementOrdered By: Celio Mullins on 07-03-2023 Cholesterol in HDL [Mass/Vol] 39 mg/dL 23-92 [facility] Comment on above: HDL CHOL ATP-III CLA SSIFICATION Cardiovascular RiskHDL > or equal to 60 mg/dL LOWHDL < 40 mg/dL HIGH Serum or plasma total choles terol/high density lipoprotein (HDL) cholesterol mass ratOrdered By: Celio Mullins on 07-03-2023 Cholesterol.total/Mali sterol in HDL [Mass ratio] 3.2 {ratio} <5.0 [facility] Sodium [Moles/volume] in Ser um or PlasmaOrdered By: Celio Mullins on 07-03-2023 Sodium [Moles/Vol] 141 mmol/L 136-145 [facility] Triglyceride [Mass/volume] i n Serum or PlasmaOrdered By: Celio Mullins on 07-03-2023 Triglyceride [Mass/Vol] 92 mg/dL 0-149 [facility] Comment on above: TRIG ATP III CLASSIF ICATIONTRIG less than 150 mg/dL NormalTRIG 150-199 mg/dL Borderline highTRIG 200-500 mg/dL High TRIG greater than 500 mg/dL Very highStandard traceable to the Center for Disease Conrtrol and Prevention (CDC) test method. Urea nitrogen [Mass/volume] in Serum or PlasmaOrdered By: Celio Mullins on 07-03-2023 Urea nitrogen [Mass/Vol] 13 mg/dL 7 [facility] Alanine aminotransferase [En zymatic activity/volume] in Serum or PlasmaOrdered By: Celio Mullins on 07-01-2023 ALT [Catalytic activity/Vol] 21 U/L 752 [facility] Albumin [Mass/volume] in Ser um or Plasma by Bromocresol green (BCG) dye binding methoOrdered By: Celio Mullins on 07-01-2023 Albumin BCG dye [Mass/Vol] 4.6 g/dL 3.5-5.7 [facility] Alkaline phosphatase [Enzyma tic activity/volume] in Serum or PlasmaOrdered By: Celio Mullins on 07-01-2023 ALP [Catalytic activity/Vol] 72 U/L 34-104 [facility] Apolipoprotein B [Mass/volum e] in Serum or PlasmaOrdered By: Celio Mullins on 07-01-2023 Apolipoprotein B [Mass/Vol] 83 mg/dL <90 [facility] Comment on above: Desirable < 90 Charissa almanza High 90 - 99 High 100 - 130 Very High >130 ASCVD RISK THERAPEUTIC TARGET CATEGORY APO B (mg/dL) Very High Risk <80 (if extreme risk <70) High Risk <90 Moderate Risk <90Performed at: [facility] [id number] Director: Jeanna Case MD, Phone: [phone] Aspartate aminotransferase [ Enzymatic activity/volume] in Serum or PlasmaOrdered By: Celio Mullins on 07-01-2023 AST [Catalytic activity/Vol] 19 U/L 13-39 [facility] Bilirubin.total [Mass/volume ] in Serum or PlasmaOrdered By: Celio Mullins on 07-01-2023 Bilirubin [Mass/Vol] 0.4 mg/dL 0.3-1.0 [facility] Calcium [Mass/volume] in Ser um or PlasmaOrdered By: Celio Mullins on 07-01-2023 Calcium [Mass/Vol] 9.8 mg/dL 8.6-10.3 [facility] Carbon dioxide, total [Moles /volume] in Serum or PlasmaOrdered By: Celio Mullins on 07-01-2023 CO2 [Moles/Vol] 25.3 mmol/L 21.0-31.0 [facility] Chloride [Moles/volume] in S marta or PlasmaOrdered By: Celio Mullins on 07-01-2023 Chloride [Moles/Vol] 105 mmol/L 98-107 [facility] Creatinine [Mass/volume] in Serum or PlasmaOrdered By: Celio Mullins on 07-01-2023 Creatinine [Mass/Vol] 0.64 mg/dL 0.60-1.20 [facility] Globulin Calc (S) [Mass/Vol] Ordered By: Celio Mullins on 07-01-2023 Globulin (S) [Mass/Vol] 3.2 g/dL [facility] Glucose [Mass/volume] in Ser um or PlasmaOrdered By: Celio Mullins on 07-01-2023 Glucose [Mass/Vol] 95 mg/dL 70-100 [facility] Comment on above: ADA recommended refe [...] from glycated hemoglobin (Bld) [Mass/Vol] 117 mg/dL [facility] Hemoglobin A1c percentageOrd ered By: Celio Mullins on 07-01-2023 HbA1c (Bld) [Mass fraction] 5.7 % 4.3-5.6 [facility] Comment on above: Increased risk for d iabetes: 5.7 - 6.4diabetes: >6.4glycemic control for adults with diabetes: <7.0 No Panel InformationOrdered By: Celio Mullins on 07-01-2023 Estimated GFR (CKD-EPI) > 60.0 mL/Min [facility] Creatinine Clearance (Chem N/A [facility] Potassium [Moles/volume] in Serum or PlasmaOrdered By: Celio Mullins on 07-01-2023 Potassium [Moles/Vol] 3.8 mmol/L 3.5-5.1 [facility] Protein [Mass/volume] in Ser um or PlasmaOrdered By: Celio Mullins on 07-01-2023 Protein [Mass/Vol] 7.8 g/dL 6.4-8.9 [facility] Serum or plasma albumin/glob ulin mass ratioOrdered By: Celio Mullins on 07-01-2023 Albumin/Globulin [Mass ratio] 1.4 {ratio} [facility] Serum or plasma anion gap de terminationOrdered By: Celio Mullins on 07-01-2023 Anion gap [Moles/Vol] 11.5 mmol/L 6.0-15.0 [facility] Serum or plasma lipoprotein a measurement (moles/volume)Ordered By: Celio Mullins on 07-01-2023 Lipoprotein a [Moles/Vol] 13.0 nmol/L <75.0 [facility] Comment on above: Note: Values greater than or equal to 75.0 nmol/L may indicate an independent risk factor for CHD, but must be evaluated with caution when applied to non- populations due to the influence of genetic factors on Lp(a) across ethnicities.Performed at: [place] [id number] Director: Cassius Zhong PhD, Phone: [phone] Sodium [Moles/volume] in Ser um or PlasmaOrdered By: Celio Mullins on 07-01-2023 Sodium [Moles/Vol] 138 mmol/L 136-145 [facility] Urea nitrogen [Mass/volume] in Serum or PlasmaOrdered By: Celio Mullins on 07-01-2023 Urea nitrogen [Mass/Vol] 16 mg/dL 7-25 [facility] COVID Quick Testingon 2022 Result Negative [employer] Other SARS-CoV-2 (COVID-19) RNA NA A+probe Ql (Resp)on 02-11-2023 SARS-CoV-2 (COVID-19) RNA SURI+probe Ql (Unsp spec) Negative [employer] Other DHEA-SULFATEon 01-01-2023 DHEA-Sulfate 95.3 ug/dL Normal 84.8-378.0 [facility] Comment on above: Performed By: #### D RIMA #### [facility] [address] [place] [address] Dr. Kaushik Palomares FSHon 01-01-2023 FSH 4.6 mIU/mL Normal [facility] Comment on above: Result Comment: Adul t Female: Follicular phase 3.5 - 12.5 Ovulation phase 4.7 - 21.5 Luteal phase 1.7 - 7.7 Postmenopausal 25.8 - 134.8 Performed By: #### C BC #### [facility] [address] [place] [address] Dr. Kaushik Palomares LUTEINIZING HORMONE (LH)on 01-01-2023 LH 3.5 mIU/mL Normal [facility] Comment on above: Result Comment: Adul t Female: Follicular phase 2.4 - 12.6 Ovulation phase 14.0 - 95.6 Luteal phase 1.0 - 11.4 Postmenopausal 7.7 - 58.5 Performed By: #### L BCL #### [facility] [address] [place] [address] Dr. Kaushik Palomares CBC AUTO DIFFon 12-31-2022 BASO # 0.1 103/ul Normal 0.0-0.1 [facility] Comment on above: Performed By: #### C BC #### [facility] [address] [place] [address] Dr. Kaushik Palomares Basophils/100 WBC (Bld) 0.8 % Normal 0.2-2.0 [facility] Comment on above: Performed By: #### C BC #### [facility] [address] [place] [address] Dr. Kaushik Palomares EO # 0.1 103/ul Normal 0.0-0.7 [facility] Comment on above: Performed By: #### C BC #### [facility] [address] [place] [address] Dr. Kaushik Palomares Eosinophils/100 WBC (Bld) 1.7 % Normal 0.9-7.0 [facility] Comment on above: Performed By: #### C BC #### [facility] [address] [place] [address] Dr. Kaushik Palomares Erythrocyte distribution width (RBC) [Ratio] 12.8 % Normal 11.0-15.0 [facility] Comment on above: Performed By: #### C BC #### [facility] [address] [place] [address] Dr. Kaushik Palomares Hematocrit (Bld) [Volume fraction] 33.0 % Critically low 36.0-48.0 [facility] Comment on above: Performed By: #### C BC #### [facility] [address] [place] [address] Dr. Kaushik Palomares Hemoglobin (Bld) [Mass/Vol] 11.0 g/dL Critically low 12.0-16.0 [facility] Comment on above: Performed By: #### C BC #### [facility] [address] [place] [address] Dr. Kaushik Palomares IG # 0.03 10e3/ul Normal 0.00-0.03 [facility] Comment on above: Performed By: #### C BC #### [facility] [address] [place] [address] Dr. Kaushik Palomares IG % 0.5 % Normal 0.0-0.5 [facility] Comment on above: Performed By: #### C BC #### [facility] [address] [place] [address] Dr. Kaushik Palomares LYMPH # 2.4 103/ul Normal 1.2-3.8 [facility] Comment on above: Performed By: #### C BC #### [facility] [address] [place] [address] Dr. Kaushik Palomares Lymphocytes/100 WBC (Bld) 36.6 % Normal 20.5-60.0 [facility] Comment on above: Performed By: #### C BC #### [facility] [address] [place] [address] Dr. Kaushik Palomares MANUAL DIFF REQ NO Normal [facility] Comment on above: Performed By: #### C BC #### [facility] [address] [address] [address] Kaushik Palomares MCH (RBC) [Entitic mass] 29.0 pg Normal 26.7-34.0 [facility] Comment on above: Performed By: #### C BC #### [facility] [address] [place] [address] Dr. Kaushik Palomares MCHC (RBC) [Mass/Vol] 33.3 g/dL Normal 29.9-35.2 [facility] Comment on above: Performed By: #### C BC #### [facility] [address] [place] [address] Dr. Kaushik Palomares MCV (RBC) [Entitic vol] 87.1 fL Normal 81.0-99.0 [facility] Comment on above: Performed By: #### C BC #### [facility] [address] [place] [address] Dr. Kaushik Palomares MONO # 0.2 103/ul Critically low 0.3-0.8 [facility] Comment on above: Performed By: #### C BC #### [facility] [address] [place] [address] Dr. Kaushik Palomares Monocytes/100 WBC (Bld) 3.6 % Normal 1.7-12.0 [facility] Comment on above: Performed By: #### C BC #### [facility] [address] [place] [address] Dr. Kaushik Palomares NEUT # 3.7 103/ul Normal 1.4-6.5 [facility] Comment on above: Performed By: #### C BC #### [facility] [address] [place] [address] Dr. Kaushik Palomares Neutrophils/100 WBC (Bld) 56.8 % Normal 43.0-75.0 [facility] Comment on above: Performed By: #### C BC #### [facility] [address] [place] [address] Dr. Kaushik Palomares Platelet mean volume (Bld) [Entitic vol] 9.8 fL Normal 9.5-13.5 [facility] Comment on above: Performed By: #### C BC #### [facility] [address] [place] [address] [address] Kaushik Palomares PLT 234 103/ul Normal 150-450 [facility] Comment on above: Performed By: #### C BC #### [facility] [address] [place] [address] [address] Kaushik Palomares RBC 3.79 106/ul Critically low 4.20-5.40 [facility] Comment on above: Performed By: #### C BC #### [facility] [address] [place] [address] [address] Kaushik Palomares WBC 6.5 103/ul Normal 4.0-11.0 [facility] Comment on above: Performed By: #### C BC #### [facility] [address] [place] [address] [address] Kaushik Palomares FREE T4on 12-31-2022 Free T4 [Mass/Vol] 0.79 ng/dL Normal 0.76-1.46 [facility] Comment on above: Performed By: #### F T4 #### [facility] [address] [place] [address] [address] Kaushik Palomares GLYCOHEMOGLOBIN A1Con 2022 ADA RECOMMENDATION SEE BELOW Normal [facility] Comment on above: Result Comment: ADA RECOMMENDED LIMIT 4.0 - 6.0 ADA THERAPEUTIC TARGET < 7.0 ACTION SUGGESTED > 7.0 Performed By: #### A 1C #### [facility] [address] [place] [address] [address] Kaushik Palomares Glucose [Mass/Vol] 111 mg/dL Normal [facility] Comment on above: Performed By: #### A 1C #### [facility] [address] [place] [address] [address] Kaushik Palomares HbA1c (Bld) [Mass fraction] 5.5 % Normal 4.5-6.2 [facility] Comment on above: Performed By: #### A 1C #### [facility] [address] [place] [address] [address] Kaushik Palomares TSHon 05-16-2023 TSH 1.114 uIU/mL Normal 0.358-3.74 0 [facility] Comment on above: Performed By: #### C #### [facility] [address] [place] [address] Dr. Kaushik Palomares US PELVIS AND TRANSVAGon [...] by: SUGEY MACDONALD Date: 2022-11-26 15:58 Normal [facility] XR SACRUM_COCCYXon 3 XR SACRUM_COCCYX [...] by: SUGEY MACDONALD Date: 2022-11-08 10:01 Normal [facility] PAP ACOG PANEL 2: 30 to 65on 11-05-2022 . . Normal [facility] Comment on above: Result Comment: Perf ormed at: WB Performed By: #### C BC #### [facility] [address] [place] [address] [address] Kaushik Palomares Age Gdln ACOG Testing 30-65 Normal [facility] Comment on above: Performed By: #### C BC #### [facility] [address] [place] [address] [address] Kaushik Palomares DIAGNOSIS: Comment Normal [facility] Comment on above: Result Comment: NEGA TIVE FOR INTRAEPITHELIAL LESION OR MALIGNANCY. Performed at: [facility] Performed By: #### C BC #### [facility] [address] [place] [address] [address] Kaushik Palomares HPV Aptima Negative Normal Negative [facility] Comment on above: Result Comment: This nucleic acid amplification test detects fourteen high-risk HPV types (16,18,31,33,35,39,45,51,52,56,58,59,66,68) without differentiation. Performed at: =G Performed By: #### C BC #### [facility] [address] [address] [address] Kaushik Palomares HPV Genotype Reflex Comment Normal [facility] Comment on above: Result Comment: Crit eria not met, HPV Genotype not performed. Performed at: [facility] Performed By: #### C BC #### [facility] [address] [address] [address] Kaushik Palomares Methodology: Comment Normal [facility] Comment on above: Result Comment: This liquid based ThinPrep(R) pap test was screened with the use of an image guided system. Performed at: [facility] Performed By: #### C BC #### [facility] [address] [address] [address] Kaushik Palomares Note: Comment Normal [facility] Comment on above: Result Comment: [...] [facility] Performed By: #### C BC #### [facility] [address] [place] [address] [address] Kaushik Palomares Performed by: Comment Normal [facility] Comment on above: Result Comment: Robi Graham, Welding Machine Operator Thermit (ASCP) Performed at: WB Performed By: #### C BC #### [facility] [address] [place] [address] [address] Kaushik Palomares Specimen adequacy: Comment Normal [facility] Comment on above: Result Comment: Sati sfactory for evaluation. Endocervical and/or squamous metaplastic cells (endocervical component) are present. Performed at: WB Performed By: #### C BC #### [facility] [address] [place] [address] Dr. Kaushik Palomares COVID/FLU RT-PCRon 2 SARS-CoV-2 (COVID-19) RNA SURI+probe Ql (Unsp spec) Negative [employer] Other COVID/FLU RT-PCR Negative [employer] Other HCG-BETA SUBUNIT QUANTon hCG,Beta Subunit,Qnt,Serum <1 Normal [facility] Comment on above: Result Comment: Fema le (Non-) 0 - 5 (Postmenopausal) 0 - 8 . Female () Weeks of Gestation 3 6 - 71 4 10 - 750 5 633 - 8160 6 158 - 36034 7 [phone] 8 53769 -[phone] 9 [phone] -[phone] 10 30998 -[phone] 12 16447 -877631 14 57004 - 50208 15 89921 - 63372 16 9769 - 50645 17 8125 - 15365 18 6347 - 22101 Rg ECLIA methodology Performed By: #### H CGSUB #### [facility] [address] [place] [address] Dr. Kaushik Palomares T4 LABCORPon 01-22-2022 T4 [Mass/Vol] 7.8 ug/dL Normal 4.5-12.0 [facility] Comment on above: Performed By: #### T 4LC #### [facility] [address] [place] [address] Dr. Kaushik Palomares CBC AUTO DIFFon 01-21-2022 BASO # 0.1 103/ul Normal 0.0-0.1 [facility] Comment on above: Performed By: #### C BC #### [facility] [address] [place] [address] Dr. Kaushik Palomares Basophils/100 WBC (Bld) 0.6 % Normal 0.2-2.0 [facility] Comment on above: Performed By: #### C BC #### [facility] [address] [place] [address] Dr. Kaushik Palomares EO # 0.1 103/ul Normal 0.0-0.7 [facility] Comment on above: Performed By: #### C BC #### [facility] [address] [place] [address] Dr. Kaushik Palomares Eosinophils/100 WBC (Bld) 1.2 % Normal 0.9-7.0 [facility] Comment on above: Performed By: #### C BC #### [facility] [address] [place] [address] Dr. Kaushik Palomares Erythrocyte distribution width (RBC) [Ratio] 13.3 % Normal 11.0-15.0 [facility] Comment on above: Performed By: #### C BC #### [facility] [address] [place] [address] Dr. Kaushik Palomares Hematocrit (Bld) [Volume fraction] 40.0 % Normal 36.0-48.0 [facility] Comment on above: Performed By: #### C BC #### [facility] [address] [place] [address] Dr. Kaushik Palomares Hemoglobin (Bld) [Mass/Vol] 12.7 g/dL Normal 12.0-16.0 [facility] Comment on above: Performed By: #### C BC #### [facility] [address] [place] [address] Dr. Kaushik Palomares IG # 0.02 10e3/ul Normal 0.00-0.03 [facility] Comment on above: Performed By: #### C BC #### [facility] [address] [place] [address] Dr. Kaushik Palomares IG % 0.2 % Normal 0.0-0.5 [facility] Comment on above: Performed By: #### C BC #### [facility] [address] [place] [address] Dr. Kaushik Palomares LYMPH # 3.0 103/ul Normal 1.2-3.8 [facility] Comment on above: Performed By: #### C BC #### [facility] [address] [place] [address] Dr. Kaushik Palomares Lymphocytes/100 WBC (Bld) 32.9 % Normal 20.5-60.0 [facility] Comment on above: Performed By: #### C BC #### [facility] [address] [place] [address] Dr. Kaushik Palomares MANUAL DIFF REQ NO Normal [facility] Comment on above: Performed By: #### C BC #### [facility] [address] [place] [address] Dr. Kaushik Palomares MCH (RBC) [Entitic mass] 28.5 pg Normal 26.7-34.0 [facility] Comment on above: Performed By: #### C BC #### [facility] [address] [place] [address] Dr. Kaushik Palomares MCHC (RBC) [Mass/Vol] 31.8 g/dL Normal 29.9-35.2 [facility] Comment on above: Performed By: #### C BC #### [facility] [address] [place] [address] Dr. Kaushik Palomares MCV (RBC) [Entitic vol] 89.7 fL Normal 81.0-99.0 [facility] Comment on above: Performed By: #### C BC #### [facility] [address] [place] [address] Dr. Kaushik Palomares MONO # 0.5 103/ul Normal 0.3-0.8 [facility] Comment on above: Performed By: #### C BC #### [facility] [address] [address] [address] Kaushik Palomares Monocytes/100 WBC (Bld) 5.1 % Normal 1.7-12.0 [facility] Comment on above: Performed By: #### C BC #### [facility] [address] [address] [address] Kaushik Palomares NEUT # 5.4 103/ul Normal 1.4-6.5 [facility] Comment on above: Performed By: #### C BC #### [facility] [address] [address] [address] Kaushik Palomares Neutrophils/100 WBC (Bld) 60.0 % Normal 43.0-75.0 [facility] Comment on above: Performed By: #### C BC #### [facility] [address] [place] [address] Dr. Kaushik Palomares Platelet mean volume (Bld) [Entitic vol] 9.3 fL Critically low 9.5-13.5 [facility] Comment on above: Performed By: #### C BC #### [facility] [address] [place] [address] Dr. Kaushik Palomares PLT 221 103/ul Normal 150-450 [facility] Comment on above: Performed By: #### C BC #### [facility] [address] [place] [address] Dr. Kaushik Palomares RBC 4.46 106/ul Normal 4.20-5.40 [facility] Comment on above: Performed By: #### C BC #### [facility] [address] [place] [address] Dr. Kaushik Palomares WBC 9.0 103/ul Normal 4.0-11.0 [facility] Comment on above: Performed By: #### C BC #### [facility] [address] [place] [address] Dr. Kaushik Palomares GLYCOHEMOGLOBIN A1Con 2021 ADA RECOMMENDATION SEE BELOW Normal [facility] Comment on above: Result Comment: ADA RECOMMENDED LIMIT 4.0 - 6.0 ADA THERAPEUTIC TARGET < 7.0 ACTION SUGGESTED > 7.0 Performed By: #### C BC #### [facility] [address] [address] [address] Kaushik Palomares Glucose [Mass/Vol] 94 mg/dL Normal [facility] Comment on above: Performed By: #### C BC #### [facility] [address] [address] [address] Kaushik Palomares HbA1c (Bld) [Mass fraction] 4.9 % Normal 4.5-6.2 [facility] Comment on above: Performed By: #### C BC #### [facility] [address] [address] [address] Kaushik Palomares LIPID PROFILEon 01-21-2022 CHOL-HDL RATIO NORM SEE BELOW Normal [facility] Comment on above: Result Comment: 3.3 - 4.4 LOW RISK 4.4 - 7.1 AVERAGE RISK 7.1 - 11.0 MODERATE RISK >11.0 HIGH RISK Performed By: #### L IPID, CMP, TSH #### [facility] [address] [address] [address] Kaushik Palomares Cholesterol [Mass/Vol] 168 mg/dL Normal <=200 [facility] Comment on above: Performed By: #### L IPID, CMP, TSH #### [facility] [address] [place] [address] Dr. Kaushik Palomares Cholesterol in HDL [Mass/Vol] 41 mg/dL Normal 40-60 [facility] Comment on above: Performed By: #### L IPID, CMP, TSH #### [facility] [address] [address] [address] Kaushik Palomares Cholesterol in LDL [Mass/Vol] 90.2 mg/dL Normal [facility] Comment on above: Performed By: #### L IPID, CMP, TSH #### [facility] [address] [place] [address] Dr. Kaushik Palomares Cholesterol.total/Mali sterol in HDL [Mass ratio] 4.1 {ratio} Normal [facility] Comment on above: Performed By: #### L IPID, CMP, TSH #### [facility] [address] [address] [address] Kaushik Palomares HDL NORMAL > or = 60 mg/dl - LO W CARDIOVASCULAR RISK <40 mg/dl - HIGH CARDIOVASCULAR RISK Normal [facility] Comment on above: Performed By: #### L IPID, CMP, TSH #### [facility] [address] [address] [address] Kaushik Palomares LDL CALC NORMAL SEE BELOW Normal [facility] Comment on above: Result Comment: <100 mg/dl OPTIMAL 100 - 129 mg/dl NEAR OR ABOVE OPTIMAL 130 - 159 mg/dl BORDERLINE HIGH 160 - 189 mg/dl HIGH >190 mg/dl VERY HIGH Performed By: #### L IPID, CMP, TSH #### [facility] [address] [address] [address] Kaushik Palomares Triglyceride [Mass/Vol] 184 mg/dL Critically high <=150 [facility] Comment on above: Performed By: #### L IPID, CMP, TSH #### [facility] [address] [address] [address] Kaushik Palomares VLDL CALC 36.8 mg/dL Normal [facility] Comment on above: Performed By: #### L IPID, CMP, TSH #### [facility] [address] [address] [address] Kaushik Palomares MICROALBUMIN, RAND URon 06-0 mALB 2.0 mg/L Normal <=30.0 [facility] Comment on above: Performed By: #### C BC #### [facility] [address] [address] [address] Kaushik Palomares PROF 14(COMP METB)on 022 Albumin [Mass/Vol] 3.7 g/dL Normal 3.4-5.0 [facility] Comment on above: Performed By: #### L IPID, CMP, TSH #### [facility] [address] [address] [address] Kaushik Palomares Albumin/Globulin [Mass ratio] 0.9 {ratio} Normal [facility] Comment on above: Performed By: #### L IPID, CMP, TSH #### [facility] [address] [address] [address] Kaushik Palomares ALP [Catalytic activity/Vol] 53 U/L Normal 46-116 [facility] Comment on above: Performed By: #### L IPID, CMP, TSH #### [facility] [address] [address] [address] Kaushik Palomares ALT [Catalytic activity/Vol] 44 U/L Normal 14-59 [facility] Comment on above: Performed By: #### L IPID, CMP, TSH #### [facility] [address] [address] [address] Kaushik Palomares Anion gap [Moles/Vol] 6.8 mmol/L Normal [facility] [facility] Comment on above: Performed By: #### L IPID, CMP, TSH #### [facility] [address] [address] [address] Kaushik Palomares AST [Catalytic activity/Vol] 22 U/L Normal 15-37 [facility] Comment on above: Performed By: #### L IPID, CMP, TSH #### [facility] [address] [address] [address] Kaushik Palomares Bilirubin [Mass/Vol] 0.3 mg/dL Normal 0.2-1.0 [facility] Comment on above: Performed By: #### L IPID, CMP, TSH #### [facility] [address] [address] [address] Kaushik Palomares Calcium [Mass/Vol] 9.2 mg/dL Normal 8.5-10.1 [facility] Comment on above: Performed By: #### L IPID, CMP, TSH #### [facility] [address] [address] [address] Kaushik Palomares Chloride [Moles/Vol] 102 mmol/L Normal 98-107 [facility] Comment on above: Performed By: #### L IPID, CMP, TSH #### [facility] [address] [address] [address] Kaushik Palomares CO2 [Moles/Vol] 31.4 mmol/L Normal 21.0-32.0 [facility] Comment on above: Performed By: #### L IPID, CMP, TSH #### [facility] [address] [address] [address] Kaushik Palomares Creatinine [Mass/Vol] 0.71 mg/dL Normal 0.55-1.02 [facility] Comment on above: Performed By: #### L IPID, CMP, TSH #### [facility] [address] [address] [address] Kaushik Palomares EGFR-AF UZBEK >60 Normal >=60 [facility] Comment on above: Performed By: #### L IPID, CMP, TSH #### [facility] [address] [place] [address] Dr. Kaushik Palomares EGFR-NON AF UZBEK >60 Normal >=60 [facility] Comment on above: Performed By: #### L IPID, CMP, TSH #### [facility] [address] [place] [address] Dr. Kaushik Palomares Globulin (S) [Mass/Vol] 4.2 g/dL Normal T [facility] Comment on above: Performed By: #### L IPID, CMP, TSH #### [facility] [address] [place] [address] Dr. Kaushik Palomares Glucose [Mass/Vol] 93 mg/dL Normal 74-106 [facility] Comment on above: Performed By: #### L IPID, CMP, TSH #### [facility] [address] [place] [address] Dr. Kaushik Palomares Potassium [Moles/Vol] 4.2 mmol/L Normal 3.5-5.1 [facility] Comment on above: Performed By: #### L IPID, CMP, TSH #### [facility] [address] [place] [address] Dr. Kaushik Palomares Protein [Mass/Vol] 7.9 g/dL Normal 6.4-8.2 [facility] Comment on above: Performed By: #### L IPID, CMP, TSH #### [facility] [address] [place] [address] Dr. Kaushik Palomares Sodium [Moles/Vol] 136 mmol/L Normal 136-145 [facility] Comment on above: Performed By: #### L IPID, CMP, TSH #### [facility] [address] [address] [address] Kaushik Palomares Urea nitrogen [Mass/Vol] 11.0 mg/dL Normal 7.0-18.0 [facility] Comment on above: Performed By: #### L IPID, CMP, TSH #### [facility] [address] [place] [address] Dr. Kaushik Palomares Urea nitrogen/Creatinine [Mass ratio] 15.5 mg/mg Normal [facility] Comment on above: Performed By: #### L IPID, CMP, TSH #### [facility] [address] [place] [address] Dr. Kaushik Palomares TSHon 01-21-2022 TSH 1.298 uIU/mL Normal 0.358-3.74 0 [facility] Comment on above: Performed By: #### C BC #### [facility] [address] [place] [address] Dr. Kaushik Palomares TSH RANGE SEE BELOW Normal [facility] Comment on above: Result Comment: <0.3 4 UIU/ml HYPERTHYROID 0.34-5.60 UIU/ml EUTHYROID >5.60 UIU/ml HYPOTHYROID Performed By: #### C BC #### [facility] [address] [place] [address] Dr. Kaushik Palomares COVID Quick Testingon 2020 Result Negative [employer] Other Quick Strepon 06-17-2021 S. pyogenes Org specific cx Ql (Throat) Negative [employer] Other Quick Strep [employer] Other Urinalysis - AUTOMATEDon Appearance (U) cloudy [employer] Other Bilirubin Ql (U) Negative [employer] Other Color (U) yellow [employer] Other Glucose Ql (U) Negative [employer] Other Hemoglobin Ql (U) large [employer] Other Ketones Ql (U) Negative [employer] Other Leukocyte esterase Test strip Ql (U) trace [employer] Other Nitrite Ql (U) Positive [employer] Other pH (U) 5.5 [pH] [employer] Other Protein Ql (U) 100 [employer] Other Specific gravity (U) [Rel density] 1.025 [employer] Other Urobilinogen (U) [Mass/Vol] 0.2 mg/dL [employer] Other [facility]inal[facility] - AUTOMATED No rt Check [employer] Other Urine Cultureon 05-31-2021 Urine Culture >100,000 [employer] Other Urine Culture <16 [employer] Other Urine Culture >16 [employer] Other Urine Culture <4 [employer] Other Urine Culture 8 [employer] Other Urine Culture <2 [employer] Other Urine Culture <1 [employer] Other Urine Culture >2 [employer] Other Urine Culture <0.5 [employer] Other Urine Culture >8 [employer] Other Urine Culture >4 [employer] Other Urine Culture <32 [employer] Other Urine Culture >2/38 [facility] Other Vital Signs Date Time Vital Sign Value Performing Clinician Trena min 11-15-2024 13:35-0400 Body height 162.56 cm Manisha Marc [employer]EL ENGINE E[employer]OR Work Phone: [facility] 11-15-2024 13:35-0400 Body mass index (BMI) [Ratio] 57.4 kg/m2 Manisha Marc D[employer]EL ENGINE ERECTOR Work Phone: [facility] 11-15-2024 13:35-0400 Body temperature 97.4 [degF] Manisha Marc DIESEL ENGINE ERECTOR Work Phone: [facility] 11-15-2024 13:35-0400 Body weight 151.95 kg Manisha Marc DIESEL ENGINE ERECTOR Work Phone: [facility] 11-15-2024 13:35-0400 Diastolic blood pressure 80 mm[Hg] Manisha Marc D[employer]EL ENGINE ERECTOR Work Phone: [facility] 11-15-2024 13:35-0400 Heart rate 111 /min Manisha Marc D[employer]EL ENGINE ERECTOR Work Phone: [facility] 11-15-2024 13:35-0400 Systolic blood pressure 122 mm[Hg] Manisha Marc D[employer]EL ENGINE ERECTOR Work Phone: [facility] 11-03-2024 15:56-0400 Body height 162.6 cm Marko Celestina DO Work Phone: [facility] 11-03-2024 15:56-0400 Body mass index (BMI) [Ratio] 57.12 kg/m2 Marko Celestina DO Work Phone: [facility] 11-03-2024 15:56-0400 Body weight 150.96 kg Marko Celestina DO Work Phone: [facility] 11-03-2024 15:56-0400 Diastolic blood pressure 70 mm[Hg] Marko Celestina DO Work Phone: [facility] 11-03-2024 15:56-0400 Systolic blood pressure 110 mm[Hg] Marko Oscar DO Work Phone: [facility] 09-27-2024 15:46-0500 Body height 162.56 cm PHYSICIAN NO [facility] 09-27-2024 15:46-0500 Body mass index (BMI) [Ratio] 57.3 kg/m2 PHYSICIAN NO [facility] 09-27-2024 15:46-0500 Body temperature 97.9 [degF] PHYSICIAN NO [facility] 09-27-2024 15:46-0500 Body weight 151.49 kg PHYSICIAN NO [facility] 09-27-2024 15:46-0500 Diastolic blood pressure 83 mm[Hg] PHYSICIAN NO [facility] 09-27-2024 15:46-0500 Heart rate 94 /min PHYSICIAN NO [facility] 09-27-2024 15:46-0500 Respiratory rate 18 /min PHYSICIAN NO [facility] 09-27-2024 15:46-0500 SaO2% (BldA) [Mass fraction] 99 % PHYSICIAN NO [facility] 09-27-2024 15:46-0500 Systolic blood pressure 136 mm[Hg] PHYSICIAN NO [facility] 08-28-2024 13:47-0500 Body height 162.56 cm PHYSICIAN NO [facility] 08-28-2024 13:47-0500 Body mass index (BMI) [Ratio] 57.4 kg/m2 PHYSICIAN NO [facility] 08-28-2024 13:47-0500 Body temperature 97.1 [degF] PHYSICIAN NO [facility] 08-28-2024 13:47-0500 Body weight 151.95 kg PHYSICIAN NO [facility] 08-28-2024 13:47-0500 Diastolic blood pressure 86 mm[Hg] PHYSICIAN NO [facility] 08-28-2024 13:47-0500 Heart rate 105 /min PHYSICIAN NO [facility] 08-28-2024 13:47-0500 Respiratory rate 16 /min PHYSICIAN NO [facility] 08-28-2024 13:47-0500 SaO2% (BldA) [Mass fraction] 97 % PHYSICIAN NO [facility] 08-28-2024 13:47-0500 Systolic blood pressure 136 mm[Hg] PHYSICIAN NO [facility] 08-24-2024 11:00-0500 Body height 162.56 cm Manisha Marc D[employer]EL ENGINE ERECTOR Work Phone: [facility] 08-24-2024 11:00-0500 Body mass index (BMI) [Ratio] 56.5 kg/m2 Manisha Marc [employer]EL ENGINE ERECTOR Work Phone: [facility] 08-24-2024 11:00-0500 Body temperature 97 [degF] Manisha Marc DIESEL ENGINE ERECTOR Work Phone: [facility] 08-24-2024 11:00-0500 Body weight 149.34 kg Manisha Marc DIESEL ENGINE ERECTOR Work Phone: [facility] 08-24-2024 11:00-0500 Diastolic blood pressure 82 mm[Hg] Manisha Marc DIESEL ENGINE ERECTOR Work Phone: [facility] 08-24-2024 11:00-0500 Heart rate 104 /min Manisha Marc DIESEL ENGINE ERECTOR Work Phone: [facility] 08-24-2024 11:00-0500 SaO2% (BldA) [Mass fraction] 95 % Manisha Marc DIESEL ENGINE ERECTOR Work Phone: [facility] 08-24-2024 11:00-0500 Systolic blood pressure 134 mm[Hg] Manisha Marc APRN Work Phone: [facility] 08-19-2024 11:05-0500 Diastolic blood pressure 72 mm[Hg] Manisha Marc APRN Work Phone: [facility] 08-19-2024 11:05-0500 Heart rate 82 /min Manisha Marc DIESEL ENGINE ERECTOR Work Phone: [facility] 08-19-2024 11:05-0500 Respiratory rate 16 /min Manisha Marc DIESEL ENGINE ERECTOR Work Phone: [facility] 08-19-2024 11:05-0500 SaO2% (BldA) [Mass fraction] 99 % Manisha Marc DIESEL ENGINE ERECTOR Work Phone: [facility] 08-19-2024 11:05-0500 Systolic blood pressure 115 mm[Hg] Manisha Marc DIESEL ENGINE ERECTOR Work Phone: [facility] 08-19-2024 09:01-0500 Body height 162.56 cm Manisha Marc DIESEL ENGINE ERECTOR Work Phone: [facility] 08-19-2024 09:01-0500 Body weight 149.68 kg Manisha Marc DIESEL ENGINE ERECTOR Work Phone: [facility] 08-16-2024 11:40-0500 Body mass index (BMI) [Ratio] 57.33 kg/m2 Consuelo Love [employer] YEAR [employer] Work Phone: [facility] 08-16-2024 11:40-0500 Body weight 151.5 kg Consuelo Love [employer] YEAR [employer] Work Phone: [facility] 08-16-2024 11:40-0500 Diastolic blood pressure 92 mm[Hg] Consuelo Love [employer] YEAR [employer] Work Phone: [facility] 08-16-2024 11:40-0500 Heart rate 82 /min Consuelo Love [employer] YEAR [employer] Work Phone: [facility] 08-16-2024 11:40-0500 SaO2% (BldA) [Mass fraction] 93 % Consuelo Love [employer] YEAR [employer] Work Phone: [facility] 08-16-2024 11:40-0500 Systolic blood pressure 144 mm[Hg] Consuelo Love [employer] YEAR [employer] Work Phone: [facility] 08-09-2024 15:48-0500 Body height 162.56 cm Manisha Marc DIESEL ENGINE ERECTOR Work Phone: [facility] 08-09-2024 15:48-0500 Body mass index (BMI) [Ratio] 58.1 kg/m2 Manisha Marc DIESEL ENGINE ERECTOR Work Phone: [facility] 08-09-2024 15:48-0500 Body temperature 98.7 [degF] Manisha Marc DIESEL ENGINE ERECTOR Work Phone: [facility] 08-09-2024 15:48-0500 Body weight 153.76 kg Manisha Marc DIESEL ENGINE ERECTOR Work Phone: [facility] 08-09-2024 15:48-0500 Diastolic blood pressure 94 mm[Hg] Manisha Marc D[employer]EL ENGINE ERECTOR Work Phone: [facility] 08-09-2024 15:48-0500 Heart rate 135 /min Manisha Marc DIESEL ENGINE ERECTOR Work Phone: [facility] 08-09-2024 15:48-0500 SaO2% (BldA) [Mass fraction] 96 % Manisha Marc DIESEL ENGINE ERECTOR Work Phone: [facility] 08-09-2024 15:48-0500 Systolic blood pressure 134 mm[Hg] Manisha Marc APRN Work Phone: [facility] 06-23-2024 12:21-0500 Body mass index (BMI) [Ratio] 57.47 kg/m2 Christhazelsudheer Kenny DO Work Phone: [facility] 06-23-2024 12:21-0500 Body weight 151.86 kg Christopher Kenny DO Work Phone: [facility] 06-23-2024 12:21-0500 Diastolic blood pressure 81 mm[Hg] Kojoer Kenny DO Work Phone: [facility] 06-23-2024 12:21-0500 Heart rate 104 /min Christopher Kenny DO Work Phone: [facility] 06-23-2024 12:21-0500 SaO2% (BldA) [Mass fraction] 95 % Christopher Kenny DO Work Phone: [facility] 06-23-2024 12:21-0500 Systolic blood pressure 132 mm[Hg] Christopher Kenny DO Work Phone: [facility] 06-21-2024 11:18-0500 Body height 162.56 cm DIESEL ENGINE ERECTORJosé Miguel Marc Work Phone: [facility] 06-21-2024 11:18-0500 Body mass index (BMI) [Ratio] 57 kg/m2 DIESEL ENGINE ERECTORJosé Miguel Marc Work Phone: [facility] 06-21-2024 11:18-0500 Body temperature 97.3 [degF] DIESEL ENGINE ERECTORJosé Miguel Marc Work Phone: [facility] 06-21-2024 11:18-0500 Body weight 150.81 kg DIESEL ENGINE ERECTORJosé Miguel Keaner Work Phone: [facility] 06-21-2024 11:18-0500 Diastolic blood pressure 88 mm[Hg] ROSITA Parksachetad Work Phone: [facility] 06-21-2024 11:18-0500 Heart rate 135 /min DIESEL ENGINE ERECTORJosé Miguel Marc Work Phone: [facility] 06-21-2024 11:18-0500 SaO2% (BldA) [Mass fraction] 94 % DIESEL ENGINE ERECTORJosé Miguel Keaner Work Phone: [facility] 06-21-2024 11:18-0500 Systolic blood pressure 136 mm[Hg] ROSITA Parksachetad Work Phone: [facility] 06-15-2024 09:29-0400 Body height 162.56 cm ROSITA Marc Work Phone: [facility] 06-15-2024 09:29-0400 Body mass index (BMI) [Ratio] 57.9 kg/m2 DIESEL ENGINE ERECTORJosé Miguel ColladoManisha Charlyacher Work Phone: [facility] 06-15-2024 09:29-0400 Body temperature 97.5 [degF] DIESEL ENGINE ERECTORJosé Miguel Parksacher Work Phone: [facility] 06-15-2024 09:29-0400 Body weight 152.97 kg DIESEL ENGINE ERECTORJosé Miguel Parksacher Work Phone: [facility] 06-15-2024 09:29-0400 Diastolic blood pressure 88 mm[Hg] DIESEL ENGINE ERECTORJosé Miguel Parksacher Work Phone: [facility] 06-15-2024 09:29-0400 Heart rate 103 /min DIESEL ENGINE ERECTORJosé Miguel Parksacher Work Phone: [facility] 06-15-2024 09:29-0400 Respiratory rate 18 /min DIESEL ENGINE ERECTORJosé Miguel Parksacher Work Phone: [facility] 06-15-2024 09:29-0400 SaO2% (BldA) [Mass fraction] 95 % DIESEL ENGINE ERECTORJosé Miguel Parksacher Work Phone: [facility] 06-15-2024 09:29-0400 Systolic blood pressure 128 mm[Hg] DIESEL ENGINE ERECTORJosé Miguel Parksacher Work Phone: [facility] 04-21-2024 14:31-0400 Body height 162.56 cm DIESEL ENGINE ERECTORJosé Miguel Parksacher Work Phone: [facility] 04-21-2024 14:31-0400 Body mass index (BMI) [Ratio] 55 kg/m2 DIESEL ENGINE ERECTORJosé Miguel Parksacher Work Phone: [facility] 04-21-2024 14:31-0400 Body weight 145.6 kg DIESEL ENGINE ERECTOR Manisha Rohrbacher Work Phone: [facility] 04-21-2024 14:31-0400 Diastolic blood pressure 88 mm[Hg] DIESEL ENGINE ERECTORJosé Miguel ColladoManisha Denyrbacher Work Phone: [facility] 04-21-2024 14:31-0400 Heart rate 111 /min DIESEL ENGINE ERECTORJosé Miguel ColladoManisha Denyrbacher Work Phone: [facility] 04-21-2024 14:31-0400 SaO2% (BldA) [Mass fraction] 97 % DIESEL ENGINE ERECTORJosé Miguel Barclayrbacher Work Phone: [facility] 04-21-2024 14:31-0400 Systolic blood pressure 136 mm[Hg] DIESEL ENGINE ERECTORJosé Miguel Barclayrbacher Work Phone: [facility] 11-26-2023 08:40-0400 Body height 162.56 cm DIESEL ENGINE ERECTORJosé Miguel Barclayrbacher Work Phone: [facility] 11-26-2023 08:40-0400 Body mass index (BMI) [Ratio] 52.9 kg/m2 DIESEL ENGINE ERECTORJosé Miguel Barclayrbacher Work Phone: [facility] 11-26-2023 08:40-0400 Body weight 139.79 kg DIESEL ENGINE ERECTORJosé Miguel ColladoManisha Denyrbacher Work Phone: [facility] 11-26-2023 08:40-0400 Diastolic blood pressure 79 mm[Hg] DIESEL ENGINE ERECTORJosé Miguel Barclayrbacher Work Phone: [facility] 11-26-2023 08:40-0400 Heart rate 97 /min DIESEL ENGINE ERECTORJosé Miguel Barclayrbacher Work Phone: [facility] 11-26-2023 08:40-0400 SaO2% (BldA) [Mass fraction] 99 % ROSITA Barclayrbacher Work Phone: [facility] 11-26-2023 08:40-0400 Systolic blood pressure 131 mm[Hg] ROSITA Parksacher Work Phone: [facility] 11-03-2023 14:06-0400 Body height 162.56 cm DIESEL ENGINE ERECTOR Manisha Denyrbacher Work Phone: [facility] 11-03-2023 14:06-0400 Body mass index (BMI) [Ratio] 53.1 kg/m2 DIESEL ENGINE ERECTORJosé Miguel ColladoManisha Denyrbacher Work Phone: [facility] 11-03-2023 14:06-0400 Body weight 140.61 kg DIESEL ENGINE ERECTORJosé Miguel ColladoManisha Denyrbacher Work Phone: [facility] 11-03-2023 14:06-0400 Diastolic blood pressure 78 mm[Hg] DIESEL ENGINE ERECTORJosé Miguel ColladoManisha Denyrbacher Work Phone: [facility] 11-03-2023 14:06-0400 Heart rate 105 /min DIESEL ENGINE ERECTORJosé Miguel ColladoManisha Charlyacher Work Phone: [facility] 11-03-2023 14:06-0400 SaO2% (BldA) [Mass fraction] 98 % DIESEL ENGINE ERECTORJosé Miguel ColladoManisha Charlyacher Work Phone: [facility] 11-03-2023 14:06-0400 Systolic blood pressure 118 mm[Hg] ROSITA Colladofer Denyrbacher Work Phone: [facility] 10-08-2023 10:50-0500 Body height 162.56 cm DIESEL ENGINE ERECTORJosé Miguel Parksacher Work Phone: [facility] 10-08-2023 10:50-0500 Body weight 139.25 kg DIESEL ENGINE ERECTORJosé Miguel Parksacher Work Phone: [facility] 10-01-2023 09:20-0500 Body height 162.56 cm ROSITA Barclayrbacher Work Phone: [facility] 10-01-2023 09:20-0500 Body mass index (BMI) [Ratio] 53.6 kg/m2 DIESEL ENGINE ERECTOR Manisha Rohrbacher Work Phone: [facility] 10-01-2023 09:20-0500 Body weight 141.69 kg DIESEL ENGINE ERECTORJosé Miguel ThaoManisha Denyrbacher Work Phone: [facility] 10-01-2023 09:20-0500 Diastolic blood pressure 75 mm[Hg] DIESEL ENGINE ERECTORJosé Miguel ColladoManisha Denyrbacher Work Phone: [facility] 10-01-2023 09:20-0500 Heart rate 85 /min DIESEL ENGINE ERECTORJosé Miguel ColladoManisha Denyrbacher Work Phone: [facility] 10-01-2023 09:20-0500 Respiratory rate 18 /min DIESEL ENGINE ERECTORJosé Miguel ColladoManisha Denyrbacher Work Phone: [facility] 10-01-2023 09:20-0500 SaO2% (BldA) [Mass fraction] 99 % DIESEL ENGINE ERECTORJosé Miguel ColladoManisha Denyrbacher Work Phone: [facility] 10-01-2023 09:20-0500 Systolic blood pressure 123 mm[Hg] DIESEL ENGINE ERECTORJosé Miguel ColladoManisha Denyrbacher Work Phone: [facility] 09-03-2023 08:00-0500 Body height 162.56 cm ROSITA Colladofer Denyrbacher Work Phone: [facility] 09-03-2023 08:00-0500 Body weight 138.79 kg DIESEL ENGINE ERECTORJosé Miguel Barclayrbacher Work Phone: [facility] 09-03-2023 08:00-0500 Diastolic blood pressure 78 mm[Hg] DIESEL ENGINE ERECTORJosé Miguel Barclayrbacher Work Phone: [facility] 09-03-2023 08:00-0500 Systolic blood pressure 118 mm[Hg] ROSITA Barclayrbacher Work Phone: [facility] 08-19-2023 09:45-0500 Body height 162.56 cm Nely Cruz Other [facility] 08-13-2023 14:00-0500 Body height 162.56 cm Manisha Marc Other [facility] 08-13-2023 14:00-0500 Body mass index (BMI) [Ratio] 52.35 kg/m2 Manisha Marc Other [employer] Other 08-13-2023 14:00-0500 Body weight 138.35 kg Manisha Marc Other [employer] Other 08-13-2023 14:00-0500 Body weight 138.34 kg ROSITA Marc Work Phone: [facility] 08-13-2023 14:00-0500 Diastolic blood pressure 80 mm[Hg] Manisha Marc Other [facility] 08-13-2023 14:00-0500 SaO2% (BldA) [Mass fraction] 98 % Manisha Marc Other [employer] Other 08-13-2023 14:00-0500 Systolic blood pressure 114 mm[Hg] Manisha Marc Other [facility] 07-15-2023 07:45-0500 Body height 162.56 cm Celio Mullins Other [facility] 07-15-2023 07:45-0500 Body mass index (BMI) [Ratio] 52.98 kg/m2 Celio Mullins Other [employer] Other 07-15-2023 07:45-0500 Body weight 140.03 kg Celio Mullins Other [employer] Other 07-15-2023 07:45-0500 Body weight 140.02 kg ROSITA Marc Work Phone: [facility] 07-15-2023 07:45-0500 Diastolic blood pressure 66 mm[Hg] Celio Mullins Other [facility] 07-15-2023 07:45-0500 Respiratory rate 18 /min Celio Mullins Other [facility] Other 07-15-2023 07:45-0500 SaO2% (BldA) [Mass fraction] 98 % Celio Mullins Other [facility] Other 07-15-2023 07:45-0500 Systolic blood pressure 112 mm[Hg] Celio Mullins Other [facility] 07-07-2023 11:15-0500 Body height 162.56 cm Michelle Haynesmond Other [facility] 07-07-2023 11:15-0500 Body mass index (BMI) [Ratio] 52.69 kg/m2 Michelle Haynesmond Other [facility] Other 07-07-2023 11:15-0500 Body temperature 98 [degF] Michelle Ernandez Other [facility] Other 07-07-2023 11:15-0500 Body weight 139.26 kg Michelle Haynesmond Other [employer] Other 07-07-2023 11:15-0500 Body weight 139.25 kg ROSITA Marc Work Phone: [facility] 07-07-2023 11:15-0500 Respiratory rate 20 /min Michelle Haynesmond Other [employer] Other 07-07-2023 11:15-0500 SaO2% (BldA) [Mass fraction] 98 % Michelle Ernandez Other [employer] Other 06-29-2023 10:20-0500 Body height 162.56 cm Michelle Ernandez Other [employer] Other 06-29-2023 10:20-0500 Body mass index (BMI) [Ratio] 53.03 kg/m2 Michelle Ernandez Other [employer] Other 06-29-2023 10:20-0500 Body temperature 99.7 [degF] Michelle Ernandez Other [employer] Other 06-29-2023 10:20-0500 Body weight 140.16 kg Michelle Ernandez Other [employer] Other 06-29-2023 10:20-0500 Respiratory rate 19 /min Michelle Ernandez Other [employer] Other 06-29-2023 10:20-0500 SaO2% (BldA) [Mass fraction] 98 % Michelle Ernandez Other [employer] Other 06-11-2023 15:30-0400 Body height 162.56 cm Manisha Marc Other [employer] Other 06-11-2023 15:30-0400 Body mass index (BMI) [Ratio] 53.79 kg/m2 Manisha Marc Other [employer] Other 06-11-2023 15:30-0400 Body weight 142.16 kg Manisha Marc Other [employer] Other 06-11-2023 15:30-0400 Diastolic blood pressure 62 mm[Hg] Manisha Tari Other [employer] Other 06-11-2023 15:30-0400 SaO2% (BldA) [Mass fraction] 99 % Manisha Tari Other [employer] Other 06-11-2023 15:30-0400 Systolic blood pressure 126 mm[Hg] Manisha Tari Other [employer] Other 05-06-2023 13:40-0400 Body height 162.56 cm Casandra Hassan Other [employer] Other 05-06-2023 13:40-0400 Body mass index (BMI) [Ratio] 53.65 kg/m2 Casandra Hassan Other [employer] Other 05-06-2023 13:40-0400 Body temperature 98.4 [degF] Casandra Hassan Other [employer] Other 05-06-2023 13:40-0400 Body weight 141.8 kg Casandra Hassan Other [employer] Other 05-06-2023 13:40-0400 Diastolic blood pressure 81 mm[Hg] Casandra Hassan Other [employer] Other 05-06-2023 13:40-0400 Respiratory rate 18 /min Casandra Hassan Other [employer] Other 05-06-2023 13:40-0400 SaO2% (BldA) [Mass fraction] 95 % Casandra Hassan Other [employer] Other 05-06-2023 13:40-0400 Systolic blood pressure 134 mm[Hg] Casandra Hassan Other [employer] Other 04-30-2023 08:30-0400 Body height 162.56 cm Manisha Marc Other [employer] Other 04-30-2023 08:30-0400 Body mass index (BMI) [Ratio] 53.86 kg/m2 Manisha Marc Other [employer] Other 04-30-2023 08:30-0400 Body weight 142.34 kg Manisha Marc Other [employer] Other 04-30-2023 08:30-0400 Diastolic blood pressure 82 mm[Hg] Manisha Marc Other [employer] Other 04-30-2023 08:30-0400 SaO2% (BldA) [Mass fraction] 100 % Manisha Marc Other [employer] Other 04-30-2023 08:30-0400 Systolic blood pressure 120 mm[Hg] Manisha Marc Other [employer] Other 04-29-2023 07:00-0400 Body height 162.56 cm Nely Cruz Other [employer] Other 04-29-2023 07:00-0400 Body mass index (BMI) [Ratio] 54.41 kg/m2 Nely Fitt Other [employer] Other 04-29-2023 07:00-0400 Body weight 143.79 kg Nely Cruz Other [employer] Other 03-25-2023 13:45-0400 Body height 162.56 cm Celio Mullins Other [employer] Other 03-25-2023 13:45-0400 Body mass index (BMI) [Ratio] 55.45 kg/m2 Celio Mullins Other [employer] Other 03-25-2023 13:45-0400 Body weight 146.56 kg Celio Mullins Other [employer] Other 03-25-2023 13:45-0400 Diastolic blood pressure 57 mm[Hg] Celio Mullins Other [employer] Other 03-25-2023 13:45-0400 Respiratory rate 18 /min Celio [employer] Other [employer] Other 03-25-2023 13:45-0400 SaO2% (BldA) [Mass fraction] 97 % Celio [employer] Other [employer] Other 03-25-2023 13:45-0400 Systolic blood pressure 106 mm[Hg] Celio Mullins Other [employer] Other 02-11-2023 12:15-0400 Body height 163.83 cm Casandra Hassan Other [employer] Other 02-11-2023 12:15-0400 Body mass index (BMI) [Ratio] 54.88 kg/m2 Casandra Hassan Other [employer] Other 02-11-2023 12:15-0400 Body temperature 98 [degF] Casandra Tesfayeley Other [employer] Other 02-11-2023 12:15-0400 Body weight 147.33 kg Casandra Sonya Other [employer] Other 02-11-2023 12:15-0400 Diastolic blood pressure 85 mm[Hg] Caasndra Sonya Other [employer] Other 02-11-2023 12:15-0400 Respiratory rate 18 /min Casandra Sonya Other [employer] Other 02-11-2023 12:15-0400 SaO2% (BldA) [Mass fraction] 98 % Casandra Sonya Other [employer] Other 02-11-2023 12:15-0400 Systolic blood pressure 128 mm[Hg] Casandra Sonya Other [employer] Other 07-13-2022 11:15-0500 Body height 163.83 cm Michelle Oma Other [employer] Other 07-13-2022 11:15-0500 Body mass index (BMI) [Ratio] 51.54 kg/m2 Michelle Oma Other [employer] Other 07-13-2022 11:15-0500 Body temperature 96.6 [degF] Michelle Oma Other [employer] Other 07-13-2022 11:15-0500 Body weight 138.35 kg Michelle Oma Other [employer] Other 07-13-2022 11:15-0500 Respiratory rate 18 /min Michelle Haynesmond Other [employer] Other 07-13-2022 11:15-0500 SaO2% (BldA) [Mass fraction] 96 % Michelle Oma Other [employer] Other 07-06-2021 13:00-0500 Body height 163.83 cm Michelle Oma Other [employer] Other 07-06-2021 13:00-0500 Body mass index (BMI) [Ratio] 49 kg/m2 Michelle Oma Other [employer] Other 07-06-2021 13:00-0500 Body temperature 97.5 [degF] Michelle Oma Other [employer] Other 07-06-2021 13:00-0500 Body weight 131.54 kg Michelle Oma Other [employer] Other 07-06-2021 13:00-0500 SaO2% (BldA) [Mass fraction] 96 % Michelle Oma Other [employer] Other 06-17-2021 11:00-0400 Body height 163.83 cm Michelle Oma Other [employer] Other 06-17-2021 11:00-0400 Body mass index (BMI) [Ratio] 49.68 kg/m2 Michelle Oma Other [employer] Other 06-17-2021 11:00-0400 Body temperature 98.3 [degF] Michelle Oma Other [employer] Other 06-17-2021 11:00-0400 Body weight 133.36 kg Michelle Oma Other [employer] Other 06-17-2021 11:00-0400 Respiratory rate 18 /min Michelle Oma Other [employer] Other 06-17-2021 11:00-0400 SaO2% (BldA) [Mass fraction] 96 % Michelle Oma Other [employer] Other 05-31-2021 13:50-0400 Body height 163.83 cm Michelle Oma Other [employer] Other 05-31-2021 13:50-0400 Body mass index (BMI) [Ratio] 50.36 kg/m2 Michelle Oma Other [employer] Other 05-31-2021 13:50-0400 Body temperature 97.8 [degF] Michelle Oma Other [employer] Other 05-31-2021 13:50-0400 Body weight 135.17 kg Michelle Oma Other [employer] Other 05-31-2021 13:50-0400 Diastolic blood pressure 90 mm[Hg] Michelle Oma Other [employer] Other 05-31-2021 13:50-0400 Respiratory rate 18 /min Michelle Oma Other [employer] Other 05-31-2021 13:50-0400 SaO2% (BldA) [Mass fraction] 98 % Michelle Oma Other [facility] Other 05-31-2021 13:50-0400 Systolic blood pressure 150 mm[Hg] Michelle Oma Other [facility] Other Encounters Encounter Date Encounter Type Care Provider Facility Start: 12-14-2024 ambulatory Edward Richey acility:[facility] Start: 11-30-2024 End: 11-30-2024 ambulatory MELA ANDERSON Not Available Start: 11-15-2024 End: 11-15-2024 ambulatory Manisha Marc APRN Work Phone: [facility] Work Phone: Start: 11-15-2024 End: 11-15-2024 Patient encounter procedure Manisha Marc APRN Work Phone: [facility] Physician [facility] Work Phone: Start: 11-10-2024 End: 11-10-2024 ambulatory CONSUELO LOVE Not Available Start: 11-09-2024 Registered Recurring Manisha Marc APRN Work Phone: [facility] Start: 11-03-2024 Non-patient / Non-visit Sherry Marc APRN Work Phone: [facility] Physician [facility] [place] Work Phone: Start: 11-03-2024 End: 11-03-2024 Patient encounter procedure Marko Celestina DO Work Phone: [facility] Work Phone: Start: 11-03-2024 End: 11-03-2024 Periodic preventive med est patient 18-39 yrs Marko Celestina DO Work Phone: [facility] Comment on above: Well woman exam with routine gynecological exam; Exposure to STD; Vaginal discharge; Missed menses; PCOS (polycystic ovarian syndrome); Vaginal itching Start: 11-03-2024 End: 11-03-2024 ambulatory MARKO OSCAR Not Available Start: 10-12-2024 Non-patient / Non-visit Sherry Marc APRN Work Phone: [facility] Physician [facility] [place] Work Phone: Start: 09-27-2024 End: 09-27-2024 ambulatory PHYSICIAN NO [facility] Work Phone: Start: 09-27-2024 End: 09-27-2024 Patient encounter procedure PHYSICIAN NO [place] Work Phone: Start: 08-28-2024 End: 08-28-2024 ambulatory PHYSICIAN NO [facility] Work Phone: Start: 08-28-2024 End: 08-28-2024 Patient encounter procedure PHYSICIAN NO [facility] Physician [facility] Work Phone: Start: 08-27-2024 Registered Recurring PHYSICIAN NO [facility] Start: 08-24-2024 Registered Recurring PHYSICIAN NO [facility] Start: 08-24-2024 Immune system finding Manisha Marc APRN Work Phone: [facility] Start: 08-24-2024 Patient encounter status Manisha Marc APRN Work Phone: [facility] Start: 08-24-2024 End: 08-24-2024 ambulatory Manisha Marc APRN Work Phone: [facility] Work Phone: Start: 08-24-2024 End: 08-24-2024 Encounter for antibody response examination Manisha Marc APRN Work Phone: [facility] Start: 08-24-2024 End: 08-24-2024 Encounter for general adult medical examination without abnormal findings Manisha Marc APRN Work Phone: [facility] Start: 08-24-2024 End: 08-24-2024 Patient encounter procedure Manisha Tari DIESEL ENGINE ERECTOR Work Phone: [facility] Physician [facility] Work Phone: Start: 08-19-2024 Non-patient / Non-visit Sherry Marc APRN Work Phone: [facility] Physician [facility] Work Phone: Start: 08-19-2024 End: 08-19-2024 Admission to same day surgery center Manisha Tari JANEN Work Phone: [facility] Work Phone: Start: 08-19-2024 End: 08-19-2024 ambulatory Manisha Tari JANEN Work Phone: [facility] Work Phone: Start: 08-16-2024 End: 08-16-2024 Bamboo flowsheet Consuelo Love 3 YEAR [employer] Work Phone: [email or web address] [address] [facility] Start: 08-16-2024 End: 08-16-2024 Bamboo flowsheet Consuelo Love 2 YEAR [employer] Work Phone: [email or web address] [address] Start: 08-16-2024 End: 08-16-2024 ambulatory CONSUELO LOVE Not Available Start: 08-16-2024 End: 08-16-2024 Office outpatient visit 15 minutes Consuelo Love 2 YEAR [employer] Work Phone: [facility] Comment on above: Cognitive dysfunctio n (Primary Dx); ALEXX (obstructive sleep apnea); Attention deficit hyperactivity disorder (ADHD), unspecified ADHD type (CMS/HCC); Severe anxiety; Severe episode of recurrent major depressive disorder, without psychotic features (HCC) (CMS/HCC); Bipolar affective disorder, remission status unspecified (CMS/HCC); Episodic migraine (CMS/HCC) Start: 08-09-2024 End: 08-09-2024 ambulatory Manisha Marc Facility:[facility] Start: 08-09-2024 End: 08-09-2024 Departed Referred Manisha Tari BECKER Work Phone: [facility] [place] Work Phone: Start: 08-09-2024 End: 08-09-2024 Patient encounter procedure Manisha Marc APRN Work Phone: [facility] Physician [facility] Work Phone: Start: 08-03-2024 Registered Recurring Manisha Tari BECKER Work Phone: [facility] Start: 07-12-2024 End: 07-12-2024 Patient encounter procedure Mario Mcknight PhD Work Phone: [facility] Comment on above: ADHD (attention defi cit hyperactivity disorder), inattentive type (CMS/HCC) (Primary Dx); ALEXX (obstructive sleep apnea); Bipolar affective disorder, remission status unspecified (CMS/HCC); Other chronic pain; Severe anxiety; Severe episode of recurrent major depressive disorder, without psychotic features (HCC) (CMS/HCC) Start: 07-12-2024 End: 07-12-2024 ambulatory MELA ANDERSON Not Available Start: 06-29-2024 Non-patient / Non-visit Sherry Marc APRN Work Phone: [facility] Physician [facility] [place] Work Phone: Start: 06-28-2024 End: 06-28-2024 Bamboo flowsheet Mario Mcknight PhD Work Phone: [facility] Start: 06-28-2024 End: 06-28-2024 Bamboo flowsheet Mario Mcknight PhD Work Phone: [facility] Start: 06-28-2024 End: 06-28-2024 Patient encounter procedure Mario Mcknight PhD Work Phone: [facility] Comment on above: ADHD (attention defi cit hyperactivity disorder), inattentive type (CMS/HCC) (Primary Dx); Cognitive impairment; ALEXX (obstructive sleep apnea); Bipolar affective disorder, remission status unspecified (CMS/HCC); Other chronic pain Start: 06-28-2024 End: 06-28-2024 ambulatory MARIO CHARLESOMAR Not Available Start: 06-25-2024 End: 06-25-2024 Departed Referred Manisha Marc APRN Work Phone: [facility] [place] Work Phone: Start: 06-25-2024 End: 06-25-2024 ambulatory Manisha Marc APRN Work Phone: [facility] Work Phone: Start: 06-25-2024 End: 06-25-2024 Patient encounter procedure Manisha Marc APRN Work Phone: [facility] Work Phone: Start: 06-23-2024 ambulatory Facility:[facility] Start: 06-23-2024 End: 06-23-2024 Bamboo flowsheet Christopher Kenny DO Work Phone: [facility] Start: 06-23-2024 End: 06-23-2024 Bamboo flowsheet Christopher Kenny DO Work Phone: [facility] Start: 06-23-2024 End: 06-23-2024 Office outpatient new 45 minutes Christopher Kenny DO Work Phone: [facility] [address] [facility] Comment on above: Cognitive impairment (Primary Dx); Anxiety Start: 06-23-2024 End: 06-23-2024 ambulatory GWEN COX Not Available Start: 06-21-2024 End: 06-21-2024 ambulatory ROSITA Marc Work Phone: [facility] Work Phone: Start: 06-21-2024 End: 06-21-2024 Patient encounter procedure DIESEL ENGINE ERECTOR Manisha Tari Work Phone: [facility] Work Phone: Start: 06-18-2024 Non-patient / Non-visit DIESEL ENGINE ERECTOR Toshia lorenzo Tari Work Phone: [facility] Physician [facility] Work Phone: Start: 06-15-2024 End: 06-15-2024 Departed Referred DIESEL ENGINE ERECTOR Manisha Tari Work Phone: [facility] [place] Work Phone: Start: 06-15-2024 End: 06-15-2024 ambulatory DIESEL ENGINE ERECTORJosé Miguel Marc Work Phone: [facility] Work Phone: Start: 06-15-2024 End: 06-15-2024 Patient encounter procedure ROSITA Thaonifer Tari Work Phone: [facility] Physician [facility] Work Phone: Start: 06-07-2024 Non-patient / Non-visit ROSITA Toshia milaryannamita Marc Work Phone: [facility] Physician [facility] [place] Work Phone: Start: 05-13-2024 Registered Recurring ROSITA Mrac Work Phone: [facility] Start: 04-21-2024 End: 04-21-2024 ambulatory DIESEL ENGINE ERECTORJosé Miguel Marc Work Phone: [facility] Work Phone: Start: 04-21-2024 End: 04-21-2024 Patient encounter procedure ROSITA Manishaamita Marc Work Phone: [facility] Physician [facility] Work Phone: Start: 04-15-2024 Non-patient / Non-visit DIESEL ENGINE ERECTOR Toshia lorenzo Denyrbacher Work Phone: [facility] Physician [facility] Work Phone: Start: 04-12-2024 Non-patient / Non-visit DIESEL ENGINE ERECTOR Toshia lorenzo Denyrbacher Work Phone: [facility] Physician [facility] [place] Work Phone: Start: 04-03-2024 Registered Recurring DIESEL ENGINE ERECTOR Layla reyna Charlyacher Work Phone: [facility] Start: 03-16-2024 End: 03-16-2024 ambulatory MELA ANDERSON Not Available Start: 01-19-2024 End: 01-19-2024 ambulatory Bud Combs MD Facility:[facility] Start: 01-01-2024 Registered Recurring DIESEL ENGINE ERECTOR Layla axel Diyar Work Phone: [facility] Start: 11-26-2023 End: 11-26-2023 ambulatory DIESEL ENGINE ERECTOR Manisha Charlyacher Work Phone: [facility] Work Phone: Start: 11-26-2023 End: 11-26-2023 Patient encounter procedure DIESEL ENGINE ERECTOR Manisha Denyrbacher Work Phone: [facility] Physician [facility] Work Phone: Start: 11-03-2023 End: 11-03-2023 ambulatory DIESEL ENGINE ERECTOR Manisha Denyrbacher Work Phone: [facility] Work Phone: Start: 11-03-2023 End: 11-03-2023 Patient encounter procedure DIESEL ENGINE ERECTOR Manisha Charlyacher Work Phone: [facility] Physician [facility] Work Phone: Start: 10-30-2023 Non-patient / Non-visit DIESEL ENGINE ERECTOR Toshia lorenzo Denyrbacher Work Phone: [facility] Physician [facility] [place] Work Phone: Start: 10-08-2023 End: 10-08-2023 ambulatory ROSITA Marc Work Phone: [facility] Work Phone: Start: 10-08-2023 End: 10-08-2023 Patient encounter procedure ROSITA Marc Work Phone: [facility] [place] Work Phone: Start: 10-06-2023 Non-patient / Non-visit ROSITA Marc Work Phone: [facility] Physician [facility] [place] Work Phone: Start: 10-06-2023 End: 10-06-2023 ambulatory Bud Combs MD Facility: [facility] Start: 10-01-2023 End: 10-01-2023 ambulatory ROSITA Marc Work Phone: [facility] Work Phone: Start: 10-01-2023 End: 10-01-2023 Patient encounter procedure ROSITA Marc Work Phone: [facility] Physician [facility] Work Phone: Start: 09-10-2023 Registered Recurring ROSITA Marc Work Phone: [facility] Start: 09-08-2023 End: 09-08-2023 ambulatory Bud Combs MD Facility:[facility] Start: 09-03-2023 End: 09-03-2023 Patient encounter procedure ROSITA Marc Work Phone: [facility]- Start: 08-19-2023 End: 08-19-2023 ambulatory Nely Cruz Other [facility] Other Start: 08-19-2023 IBT FOR OBESITY GROU P 2-10 30M Nely Cruz [facility] Start: 08-19-2023 Registered Recurring ROSITA Marc Work Phone: [facility] Work Phone: Start: 08-19-2023 End: 08-19-2023 Patient encounter procedure ROSITA Marc Work Phone: [facility] Work Phone: Start: 08-14-2023 Registered Recurring ROSITA Marc Work Phone: [facility] Start: 08-13-2023 End: 08-13-2023 ambulatory Manisha Marc Other [employer] Other Start: 08-13-2023 Office outpatient vi sit 15 minutes Manisha Marc [facility] Start: 08-13-2023 End: 08-13-2023 Patient encounter procedure ROSITA Marc Work Phone: [facility] Work Phone: Start: 07-21-2023 End: 07-21-2023 ambulatory Bud Combs MD Facility:[facility] Start: 07-19-2023 End: 07-19-2023 ambulatory ROSITA Marc Work Phone: [facility] Work Phone: Start: 07-19-2023 End: 07-19-2023 Patient encounter procedure ROSITA Marc Work Phone: [facility] Start: 07-15-2023 End: 07-15-2023 ambulatory Celio Mullins Other [employer] Other Start: 07-15-2023 Follow-up encounter Celio guerrero [facility] Start: 07-15-2023 End: 07-15-2023 Patient encounter procedure ROSITA Marc Work Phone: [facility] Work Phone: Start: 07-07-2023 End: 07-07-2023 ambulatory Michelle Oma Other [employer] Other Start: 07-07-2023 Office outpatient vi sit 15 minutes Michelle Oma [facility] Start: 07-07-2023 End: 07-07-2023 Patient encounter procedure ROSITA Marc Work Phone: [facility] Work Phone: Start: 07-03-2023 Registered Recurring ROSITA Marc Work Phone: [facility] Start: 07-03-2023 End: 07-03-2023 ambulatory ROSITA Marc Work Phone: [facility] Work Phone: Start: 07-03-2023 End: 07-03-2023 Patient encounter procedure ROSITA Marc Work Phone: [facility] [place] Work Phone: Start: 07-01-2023 End: 07-01-2023 Patient encounter procedure ROSITA Marc Work Phone: [facility] [place] Work Phone: Start: 06-29-2023 End: 06-29-2023 ambulatory Michelle Oma Other [employer] Other Start: 06-29-2023 Office outpatient vi sit 15 minutes Michelle Oma [facility] Start: 06-17-2023 Registered Recurring ROSITA Rich gloriasudheer Marc Work Phone: [facility] Work Phone: Start: 06-11-2023 End: 06-11-2023 ambulatory Manisha Marc Other [employer] Other Start: 06-11-2023 Office outpatient vi sit 25 minutes Manisha Marc [facility] Start: 05-06-2023 End: 05-06-2023 ambulatory Casandra Hassan Other [employer] Other Start: 05-06-2023 Office outpatient vi sit 10 minutes Casandra Hassan [facility] Start: 05-01-2023 End: 05-01-2023 ambulatory Manisha Marc Other [employer] Other Start: 05-01-2023 Telephone encounter Manisha Jacky her [facility] Start: 04-30-2023 End: 04-30-2023 ambulatory Manisha Marc Other [employer] Other Start: 04-30-2023 Encounter for genera l adult medical examination without abnormal findings Manisha Marc [facility] Start: 04-30-2023 Periodic preventive med est patient 18-39 yrs Manisha Marc [facility] Start: 04-29-2023 ([facility]) WMN Init ial Provider Nely Cruz [facility] Start: 04-29-2023 End: 04-29-2023 ambulatory Nely Cruz Other [employer] Other Start: 03-25-2023 End: 03-25-2023 ambulatory Celio Mullins Other [employer] Other Start: 03-25-2023 Nutrition therapy Celio johns [facility] Start: 03-25-2023 Telephone encounter Celio guerrero [facility] Start: 03-14-2023 End: 03-14-2023 ambulatory Nely Cruz Other [employer] Other Start: 03-14-2023 [facility] Start: 02-11-2023 End: 02-11-2023 ambulatory Casandra Hassan Other [employer] Other Start: 02-11-2023 Office outpatient vi sit 15 minutes Casandra Hassan [facility] Start: 12-31-2022 End: 01-01-[address] MARKO OSCAR . Facility:[facility] Start: 11-26-2022 End: 11-27-[address] MARKO OSCAR . Facility:[facility] Start: 11-08-2022 End: 11-09-[address] THADDEUS ROD Facility:[facility] Start: 10-28-2022 End: 10-28-[address] MARKO OSCAR . Facility:[facility] Start: 07-13-2022 End: 07-13-2022 ambulatory Michelle Ernandez Other [employer] Other Start: 07-13-2022 Office outpatient vi sit 15 minutes Michelle Ernandez [facility] Start: 03-07-2022 End: 03-08-[address] THADDEUS ROD Facility:[facility] Start: 01-25-2022 Encounter for genera l adult medical examination without abnormal findings DR THADDEUS ROD [facility] Start: 01-21-2022 End: 01-22-[address] THADDEUS ROD Facility:[facility] Start: 01-21-2022 End: 01-22-2022 Encounter for general adult medical examination without abnormal findings DR THADDEUS ROD Facility:[facility] Start: 07-06-2021 End: 07-06-2021 ambulatory Michelle Ernandez Other [employer] Other Start: 07-06-2021 Office outpatient vi sit 15 minutes Michelle Oma [facility] Start: 06-17-2021 Office outpatient vi sit 15 minutes Michelle Oma [facility] Start: 05-31-2021 Office outpatient vi sit 25 minutes Michelle Oma [facility] Start: 08-27-2018 End: 08-27-2018 ambulatory BRENT KINNEY Facility:[facility] Procedures Date Procedure Procedure Detail Performing Clinician Start: 11-03-2024 Urine test visual color cmprsn meths Marko Chapao DO Work Phone: Start: 08-19-2024 Esophagogastroduodenoscopy Manisha chamberlain DIESEL ENGINE ERECTOR Work Phone: Start: 08-09-2024 Urine culture Manisha Marc APRN Work Phone: Start: 06-25-2024 Urine culture Manisha Marc APRN Work Phone: Start: 06-15-2024 Bacteria identified in Urine by Culture DIESEL ENGINE ERECTOR Manisha Marc Work Phone: Start: 06-15-2024 Urine culture Manisha Marc APRN Work Phone: Start: 11-03-2023 Microscopic observation [Identifier] in Cervix by Cyto stain Kojosudheer Kenny DO Work Phone: Start: 10-08-2023 MRI of head DIESEL ENGINE ERECTOR Manisha Marc Work Phone: Start: 05-31-2021 Piperacillin/tazobactam Michelle Ernandez Other Start: 08-27-2018 extraction, erupted tooth or exposed root (elevation and/or forceps removal) BRENT KINNEY Start: 08-27-2018 removal of impacted tooth - soft tissue BRENT MENDOZACONIS Start: 08-27-2018 Urine test visual color cmprsn meths BRENT KINNEY Plan of Treatment Date Care Activity Detail Author Start: 10-29-2027 Screening for malign ant neoplasm of cervix [facility] Start: 03-18-2027 Screening for malign ant neoplasm of cervix Pap Smear [facility] Start: 11-09-2025 End: 11-09-2025 Patient encounter procedure 11/09/2025 3:00 PM EDT Office Visit [facility] [address] [place] [phone] Marko Oscar, DO [address] [address] [facility] Start: 11-30-2024 End: 11-30-2024 Professional / ancillary services management 11/30/2024 1:00 PM EDT Ancillary Procedure [facility] [address] [place] [phone] [facility] Start: 11-09-2024 End: 11-09-2024 Patient encounter procedure [facility] [facility] Start: 11-03-2024 End: 11-03-2025 US Pelvis US Pelvis w/ TV Imaging Routine PCOS (polycystic ovarian syndrome) Expected: 11/03/2024, Expires: 11/03/2025 [facility] Comment on above: Expected: 11/03/2024 , Expires: 11/03/2025 Start: 11-02-2024 End: 11-02-2024 Patient encounter procedure 11/02/2024 11:00 AM EDT Office Visit [facility] [address] [place] [address] Marko Oscar, DO [address] [address] [facility] Start: 08-19-2024 [facility] Start: 08-16-2024 End: 08-16-2024 Patient encounter procedure 08/16/2024 11:20 AM EST Office Visit [facility] [address] [facility] [place] [address] Consuelo Love, 3 [employer] [address] [place] [phone] [facility] [facility] Start: 07-12-2024 End: 07-12-2024 Patient encounter procedure 07/12/2024 8:00 AM EST Office Visit [facility] [address] [place] [phone] [facility] Start: 06-28-2024 End: 06-28-2024 Patient encounter procedure [facility] Comment on above: Cognitive impairment Start: 06-25-2024 Bacteria identified in Urine by Culture Urine Culture [facility] Start: 06-25-2024 Urine culture [facility] Start: 06-23-2024 End: 06-23-2024 Patient encounter procedure 06/23/2024 12:30 PM EST Office Visit [facility] [address] [place] [phone] Gwen Cox DO [address] [place] [address] Arrived [facility] Comment on above: Arrived Start: 06-21-2024 Patient referral [facility] Work Phone: Start: 06-15-2024 Bacteria identified in Urine by Culture Urine Culture [facility] Start: 06-15-2024 [facility] Start: 06-15-2024 Urine culture [facility] Start: 04-18-2024 Influenza vaccination Influenza Vacc ine (#1) [facility] CHLAMYDIA TRACHOMATI S (GENITO/STI) CHLAMYDIA TRACHOMATIS (GENITO/STI) Lab Routine Exposure to STD Ordered: 11/03/2024 [facility] Comment on above: Ordered: 11/03/2024 Chlamydia trachomati s DNA [Presence] in Unspecified specimen by SURI with probe detection [facility] Comprehensive metabo lic 2000 panel - Serum or Plasma [facility] CT Neck W contrast IV [facility] Cytology Cervical or vaginal smear or scraping study Pap Smear Pathology and Cytology Routine Well woman exam with routine gynecological exam Ordered: 11/03/2024 [facility] Work Phone: Comment on above: Ordered: 11/03/2024 Holter monitor study [facility] Human papilloma viru s DNA [Presence] in Unspecified specimen by Probe with amplification HPV DNA probe, amplified Microbiology Routine Well woman exam with routine gynecological exam Ordered: 11/03/2024 [facility] Comment on above: Ordered: 11/03/2024 MR Unspecified body region [facility] Neisseria gonorrhoea e DNA [Presence] in Unspecified specimen by SURI with probe detection [facility] Neisseria gonorrhoea e DNA [Presence] in Unspecified specimen by SURI with probe detection Neisseria gonorrhea DNA probe, direct Lab Routine Exposure to STD Ordered: 11/03/2024 [facility] Comment on above: Ordered: 11/03/2024 Patient Education [facility] Work Phone: Patient referral [facility] Work Phone: SURESWAB(R) ADVANCED VAGINITIS PLUS, TMA SURESWAB(R) ADVANCED VAGINITIS PLUS, TMA Pathology and Cytology Routine Vaginal discharge Ordered: 11/03/2024 [facility] Comment on above: Ordered: 11/03/2024 Trichomonas vaginali s DNA [Presence] in Unspecified specimen by SURI with probe detection [facility] Urine culture [facility] Immunizations Immunization Date Immunization Notes Care Provider Lillie rogers 03-03-2021 Do not use COVID-19 Pfizer 2 dose Manisha Rohrbacher Other [facility] 02-10-2021 Do not use COVID-19 Pfizer 2 dose Manisha Rohrbacher Other [facility] 08-03-2018 Toradol per 15 mg Michelle Dym ond Other [facility] Other Payers Date Payer Category Payer Self-pay [id number] 2022 Private Health Insurance 1990 Unknown [id number] 2.16.840.1.152650.3.579.2. 732 1991 Unknown [id number] 2.16.840.1.057405.3.579.2. 593 1991 Unknown [id number] 2.16.840.1.534899.3.579.2. 593 1991 Unknown [id number] 2.16.840.1.154429.3.579.2. 593 1991 Unknown [id number] 2.16.840.1.229398.3.579.2. 593 1991 Unknown [id number] 2.16.840.1.593089.3.579.2. 593 1991 Unknown [id number] 2.16.840.1.365222.3.579.2. 593 1991 Unknown [id number] 2.16.840.1.190549.3.579.2. 196 1991 Unknown [id number] 2.16.840.1.204483.3.579.2. 196 1991 Unknown [id number] 2.16.840.1.621308.3.579.2. 196 1991 Unknown [id number] 2.16.840.1.395690.3.579.2. 196 1991 Unknown [id number] 2.16.840.1.933478.3.579.2. 1259 1991 Unknown [id number] 2.16.840.1.404696.3.579.2. 1259 1991 Unknown [id number] 2.16.840.1.570617.3.579.2. 1259 1991 Unknown [id number] 2.16.840.1.133997.3.579.2. 1259 1991 Unknown [id number] 2.16.840.1.474125.3.579.2. 1259 1991 Unknown [id number] 2.16.840.1.640454.3.579.2. 1259 1991 Unknown [id number] 2.16.840.1.561836.3.579.2. 1259 1991 Unknown [id number] 2.16.840.1.746406.3.579.2. 1259 1958 Medicaid [id number] 1959 Unknown [id number] Unknown [place] [id number] Unknown [id number] 2.16.840.1.745957.3.579.2. 531 Unknown [id number] 2.16.840.1.942144.3.579.2. 531 Unknown [id number] 2.16.840.1.288546.3.579.2. 531 Unknown [id number] 2.16.840.1.578060.3.579.2. 531 Unknown [id number] 2.16.840.1.480939.3.579.2. 531 Social History Date Type Detail Facility Unknown if ever smoked [facility] Other Start: 03-11-2023 End: 03-16-2024 Sex Assigned At [employer] Other Start: 12-07-2021 End: 08-19-2024 Tobacco smoking status NHIS Never smoked tobacco (finding) [facility] Start: 1990 Sex Assigned At Female F [facility] Start: 05-31-2024 End: 11-03-2024 Alcoholic beverage intake Not Asked [facility] Start: 07-24-2023 End: 03-16-2024 History of Social function [facility] Start: 03-11-2023 Gender identity Identifies as female gender (finding) [facility] Start: 06-25-2024 End: 11-15-2024 Sex Female (finding) [facility] Goals Date Patient Goal Desired Activity /State Clinical Notes 05-31-2021 to 11-03-2024 Cici Lake LPN - 11/03/2024 3:20 PM EDT Note Date [...] Disorder of endocrine system 02/11/2023 Essential hypertension ([facility]/HCC) 02/11/2023 Herpes simplex of female genitalia 02/11/2023 [...] Morbid obesity with BMI of 50.0-59.9, adult ([facility]/HCC) Pain of ovary PCOS (polycystic ovarian syndrome) [...] nursing note reviewed. Exam conducted with a baking assistant present. Vitals: Estimated body mass index is [...] Marko Oscar DO documented in this encounter [facility] 08-24-2024 Evaluation note Diagnosis Onset Date Resolution Encounter for antibody response examination acute August 10:57am History of seizures acute Jankenya ry 2024 10:57am Hypertension acute August 24, 2024 10:57am Iron deficiency anemia acute Baldev rios 2024 10:57am PCOS (polycystic ovarian syndrome) acute August 24 10:57am Severe obesity (BMI >= 40) acute August 24 10:57am Wellness examination acute Alvega campuzano 2024 10:57am Cellulitis acute August 28, 2024 1:44pm Viral illness acute September 272024 3:23pm Swelling, mass, or lump in head and neck acute November 15 1:32pm [facility] Work Phone: 1(416) 315-563001-02-2025 [place] [address] Colonoscopy Procedure Report Signed Patient: Ashly Mehta MR#: [id number] : 1990 Acct:[id number] Age/Sex: 33 / F Adm Date: Loc: Room: Type: [facility] Attending Dr: Hilaria Burgos DO Copies [...] slowly withdrawn with the findings as below. [place] bowel prep score was Fair. Findings: The [...] Burgos DO 08/19/24 0859 Signed By: 08/19/[address] [place], [place] [address]893501-02-2025 [place] [address] EGD Procedure Note Signed Patient: Ashly Mehta MR#: [id number] : 1990 Acct:[id number] Age/Sex: 33 / F Adm Date: Loc: Room: Type: [facility] Attending Dr: Hilaria Burgos DO Copies [...] Burgos DO 08/19/24 0859 Signed By: 08/19/24 [facility]01-02-2025 [place] [address] Gastroenterology H&P Signed Patient: Ashly Mehta MR#: [id number] : 1990 Acct:[id number] Age/Sex: 33 / F Adm Date: 5 Loc: Room: Type: [facility] Attending Dr: Hilaria Burgos DO Copies to: DO Manisha Chakraborty APRN, CLINICAL DATA ASSISTANT~ Date of Service: 08/19/2024 HISTORY & PHYSICAL: [...] DO 08/19/24 0859 Signed By: 08/19/24 0954 [facility]12-30-2024 History of Present illness Narrative * Consuelo [...] her psychiatrist plans to get her a disease case manager rn soon. The patient reports difficulty maintaining [...] wrist extensors , wrist flexor , and soda tester strength 5/5. LUE strength deltoid , biceps , triceps , wrist extensors , wrist flexor , and soda tester strength 5/5. RLE strength iliopsoas, quadriceps, tibialis [...] reflex 2+. LLE knee reflex 2+. Coordination: Quqhsx-aw-hjkp testing normal. Rapid alternating movements are normal. Gait: Normal. Review and summary of old records: Neuropsychological evaluation at [facility] on 07/12/2024: Current neuropsychologicalevaluation [...] her psychiatrist to establish care with a disease case manager rn, and I believe this is a [...] NP [facility] documented in this encounter[facility] [id number] Evaluation note* Diagnosis Onset Date Resolution Status Admit Date Dysuria acute August 09, 2024 3:46pm Excessive sweating acute Decemb er 2023 3:46pm Encounter for antibody response examination acute August 10:57am History of seizures acute Augua ry 2024 10:57am Hypertension acute August 24, 2024 10:57am Iron deficiency anemia acute nuary 2024 10:57am PCOS (polycystic ovarian syndrome) acute August 24 10:57am Severe obesity (BMI >= 40) acute August 24, 2024 10:57am Wellness examination acute Al tatianna 2024 10:57am Cellulitis acute August 28, 2024 1:44pm [facility] Work Phone: 1(946) 370-671911-25-2024 History of Present illness Narrative* Mario Mcknight, [...] any history of alcohol/substance abuse or smoking. [place] language Mexican. Completed an associate's degree and was 24 credits shy of a bachelor's degree. Struggled academically and with attention. 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 Responsible for tending to the needs of [...] design >16th %ile. Motor/Speed of Processing: Right-handed. Sewing Line Baler strength 24th %ile with right- hand, 62nd [...] Learning of a word list 31st %ile (0-6-15-13-13), delayed recall 16th %ile. Recognition discriminability 69th %ile. Forced-choice 16. Immediate recall for prose passages 24th %ile, [...] of this individual. Please contact me with anyquestions at [phone]. documented in this encounterSamaritan [id number] History of Present illness Narrative* Mairo Mcknight, PhD - 06/28/2024 8:00 AM EST [...] any history of alcohol/substance abuse or smoking. [place] language Mexican. Completed an associate's degree and was 24 credits shy of a bachelor's degree. Struggled academically and with attention. 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 Responsible for tending to the needs of [...] Morbid obesity with BMI of 50.0-59.9, adult ([facility]/HCC) Pain of ovary PCOS (polycystic ovarian syndrome) Pre-diabetes Right ovarian cyst Seasonal affective disorder (CMS/HCC) Secondary amenorrhea Seizure disorder ([facility]/HCC) MEDICATIONS: Current Outpatient Medications Medication Instructions albuterol [...] of this individual. Please contact me with walkby at [phone]. documented in this encounterSamaritan [id number] History of Present illness Narrative* Gwen Cox, - 06/23/2024 12:30 PM EST Images from [...] , wrist extensors , wrist flexor , soda tester strength 5/5. LUE Strength deltoid , biceps , triceps , wrist extensors , wrist flexor , soda tester strength 5/5. RLE Strength illopsoas, quadriceps, tibialis [...] reflex 2+ . Valiente's sign negative. Coordination: Gqrace-ma-apwz testing and rapid alternating movements are normal [...] plan, and return instructions documented in this encounterSamaritan [id number] Evaluation note* Diagnosis Onset Date Resolution Status [...] Excessive sweating acute Decemb er 2023 3:46pm [facility] Work Phone: 1(105) 578-975110-29-2024 Evaluation note* Diagnosis Onset Date Resolution Status [...] status unknown deleted August 24, 2024 10:57am [facility] Work Phone: 1(412) 229-274410-29-2024 Evaluation note* Diagnosis Onset Date Resolution Status Admit Date Acute UTI acute June 15, 2024 9:22am Fatty liver disease, nonalcoholic acute June 21 11:13am Frequent UTI acute June 11:13am Obstructive sleep apnea acute N ovember 2023 11:13am UTI (urinary tract infection) acute June 21, 2024 11:13am Dysuria acute June 25, 2024 9:05am Dysuria acute August 09, 2024 3:46pm [facility]cessive [facility] Encounter for antibody response examination acute August 10:57am History of seizures acute Augua ry 2024 10:57am Hypertension acute August 24, 2024 10:57am Iron deficiency anemia acute Ja nuary 2024 10:57am PCOS (polycystic ovarian syndrome) acute August 24 10:57am Severe obesity (BMI >= 40) acute August 24, 2024 10:57am Wellness examination acute 2024 10:57am [facility] Work Phone: 1(591) 525-254209-04-2024 Evaluation note* Diagnosis Onset Date Resolution Status [...] tract infection) acute June 21, 2024 11:13am [facility] Work Phone: 1([phone]) 131-885909-04-2024 Evaluation note* Diagnosis Onset Date Resolution Status [...] 11:13am Dysuria acute June 25, 2024 9:05am [facility] Work Phone: 1([phone]) 346-666101-02-2024 Evaluation note* Encounter Date Diagnosis Assessment Notes Treatment Notes Treatment Clinical Notes Aug, Obesity, unspecified classification, unspecified obesity type, unspecified whether serious comorbidity present (ICD-10 - E66.9) Aug, BMI 50.0-59.9, adult (ICD-10 - Z68.43) Aug, Other Summary of Visi t: (A) Importnace of planning to simplify meals (B) Deconstructed Meals (C) Sharing meal ideas (D) Plate method for meal planning ; [employer] Other 12-27-2023 Evaluation note* Encounter Date Diagnosis [...] You have been given relevant education handouts. [facility] Other 11-28-2023 Evaluation note* Encounter Date Diagnosis [...] voice recognition software. Please excuse errors in relationship mgr. Jun, Dietary surveillance and counseling (ICD-10 - [...] metformin 1000 mg total daily, managed by MANAGER DEVELOPMENT Jun, Asthma (ICD-10 - J45.909) Jun, Migraine (ICD-10 - G43.909) Jun, Primary hypertension (ICD-10 - I10) Currently on pharmacotherapy Potential for overtreatment given lightheadedness Jun, Other An additional 9 minutes was spent counseling the patient on behavior modification including proper nutrition and physical activity. [facility] Other 11-20-2023 Evaluation note* Encounter Date Diagnosis [...] until you feel better. You may take gflg-lyi-bwhusdb Imodium for diarrhea as needed. Avoid dairy foods as well as greasy fried foods. Follow-up with your physician if no improvement in 2 to 3 days. May return to work on Jun, Diarrhea, unspecified type (ICD-10 - R19.7) Diarrhea: adult home care material was printed [employer] Other 11-12-2023 Evaluation note* Encounter Date Diagnosis [...] to 3-day Jun, Bronchitis (ICD-10 - J40) [employer] Other 10-25-2023 Evaluation note* Encounter Date Diagnosis Assessment Notes Treatment Notes Treatment Clinical Notes May, Degenerative lumbar disc (ICD-10 - M51.36) L4-5 Pt would like a referral to pain management regarding her chronic back pain. Her last x-ray of the lumbar spine was completed 10/2022 at [facility]--reviewed and in scanned documents. Referral placed. May, [...] disorder (ICD-10 - F31.81) Referral placed to [facility] for medication mangement. [facility] Other 09-19-2023 Evaluation note* Encounter Date Diagnosis Assessment Notes Treatment Notes Treatment Clinical Notes Apr, Exposure to head lice (ICD-10 - Z20.7) Discussed with patient exam is without any signs of current lice infection. May return to work tomorrow. Patient completed next treatment yesterday. Patient verbalized understanding. [facility] Other 09-14-2023 Evaluation note* Encounter Date Diagnosis Assessment Notes Treatment Notes Treatment Clinical Notes Apr, Primary hypertension (ICD-10 - I10) [facility] Other 09-13-2023 Evaluation note* Encounter Date Diagnosis [...] (ICD-10 - R73.01) Will obtain records from [facility] for most recent labs. Patient is advised [...] Low back pain, unspecified (ICD-10 - M54.50) [facility] Other 09-12-2023 Evaluation note* Encounter Date Diagnosis [...] 2) Aim for < 45 g carb/meal [employer] Other 08-08-2023 Evaluation note* Encounter Date Diagnosis [...] voice recognition software. Please excuse errors in relationship mgr. Mar, Dietary surveillance and counseling (ICD-10 - [...] as sweet tea, replace ice cream with [employer] yogurt, use protein shake in the a.m. [...] with the patient, and documenting clinical information. [facility] Other 06-27-2023 Evaluation note* Encounter Date Diagnosis [...] 7 days, sooner if significantly worsening symptoms. [employer] Other 11-26-2022 Evaluation note* Encounter Date Diagnosis [...] 3 days. Off work today and tomorrow [employer] Other 11-19-2021 Evaluation note* Encounter Date Diagnosis [...] Patient care instructions given in writting by [employer] [facility] document. [employer] Other 10-31-2021 Evaluation note* Encounter Date Diagnosis [...] Patient care instructions given in writting by [employer] [facility] document. [employer] Other 10-14-2021 Evaluation note* Encounter Date Diagnosis Assessment Notes Treatment Notes Treatment Clinical Notes May, Dysuria (ICD-10 - R30.0) May, Urinary tract infection, site not specified (ICD-10 - N39.0) May, Hematuria, unspecified (ICD-10 - R31.9) [employer] Other Evaluation noteNo InformationNort Check I'm Here Other Evaluation noteNo assessment information available [facility] Work Phone: Evaluation note* Diagnosis Onset Date Resolution Status Dietary surveillance and counseling acute Exercise counseling acute Food insecurity acute PCOS (polycystic ovarian syndrome) acute Prediabetes acute Severe obesity (BMI >= 40) [facility] Work Phone: Evaluation note* Diagnosis Onset Date Resolution Status Dietary surveillance and counseling acute Exercise counseling acute Food insecurity acute PCOS (polycystic ovarian syndrome) acute Prediabetes acute Severe obesity (BMI >= 40) [facility] Lightheadedness acute Menorrhagia acute Palpitations acute [facility] Work Phone: Evaluation note* Diagnosis Onset Date Resolution Status Dietary surveillance and counseling acute Exercise counseling acute Food insecurity acute PCOS (polycystic ovarian syndrome) acute Prediabetes acute Severe obesity (BMI >= 40) a cute Lightheadedness acute Menorrhagia acute Palpitations acute Dietary surveillance and counseling acute Exercise counseling acute Severe obesity (BMI >= 40) a [facility] Work Phone: Evaluation note* Diagnosis Onset Date Resolution Status Lightheadedness acute Menorrhagia acute Palpitations acute Dietary surveillance and counseling acute Exercise counseling acute Severe obesity (BMI >= 40) a [facility] Work Phone: Evaluation note* Diagnosis Onset Date Resolution Status Aphasia acute History of seizures acute Memory loss acute Migraine acute [facility] Work Phone: Evaluation note* Diagnosis Onset Date Resolution Status Aphasia acute Apnea acute Fatigue acute History of seizures acute Loud snoring acute Memory loss acute Migraine acute Morbid obesity acute Acute UTI acute [facility] Work Phone: Evaluation note* Diagnosis Onset Date Resolution Status Aphasia acute Apnea acute Fatigue acute History of seizures acute Loud snoring acute Memory loss acute Migraine acute Morbid obesity acute Acute UTI acute Fatty liver disease, nonalcoholic acute Frequent UTI acute UTI (urinary tract infection) acute [facility] Work Phone: Evaluation note* Diagnosis Cognitive [...] HealthcareHistory and physical note Author Hilaria Burgos [facility] Note Date/Time August 19, 2024 9: 54am [facility] [address] [place] [address] Gastroenterology H&P Signed Patient: Ashly Mehta MR#: [id number] : 1990 Acct:[id number] Age/Sex: 33 / F Adm Date: Loc: Room: Type: [facility] Attending Dr: Hilaria Burgos DO Copies to: Hilaria Burgos, DO Manisha Marc APRN, CLINICAL DATA ASSISTANT~ Date of Service: 08/19/2024 HISTORY & PHYSICAL: [...] <Electronically signed by Hilaria Burgos DO> 08/19/24 0954 [facility] Work Phone: history general Narrative - [...] History Hospitalized for blood l oss 2010 [facility] Other [employer] general Narrative - Reported* Type Description Date [...] History Hospitalized for blood l oss 2010 [facility] Other history general Narrative - Reported* Type [...] History Hospitalized for blood l oss 2010 [facility] Other history general Narrative - Reported* Type [...] History Hospitalized for blood l oss 2010 [facility] Other history general Narrative - Reported* Type [...] History Hospitalized for blood l oss 2010 [facility] Other history general Narrative - Reported* Type [...] History Hospitalized for blood l oss 2010 [facility] Other history general Narrative - Reported* Type [...] History Hospitalized for blood l oss 2010 [facility] Other Hospital Discharge instructionsAmbulatory Orders* Referral to Gastroenterology Time Frame: 06/21/24, Location: None Selected * Referral to Urology Time Frame: 06/21/24, Location: None Selected [facility] Work Phone: Reason for referral (narrative)* Reason *FU 06/20 would [place]if [place] a referral to pscyiatrist -- was recently diagnosed with bipolar and would like medication management. Diagnosis 1 Bipolar 2 disorder ( F31.81) Referral Organization [facility] [employer] Damion tsang Referring Provider First Name Manisha Referring Provider Last Name Charlyacher Referring Provider Specialty Nurse Pract itgris Referred Organization [facility] [place] Referred Address [address],[place], [place],[address] Referred Provider Specialty Psychiatry Referral Priority Routine General Notes Paola Henderson 01:25:30 PM >received today, not sure if [facility] does medication management, waiting for notes to be locked Paola Henderson 06/13/2023 10:34:39 AM >notes locked, referral faxed Clinical Notes p: [phone] f: [id number] [facility] Reason *FU 06/20 would sherif groves a referral to pain management for other options for pain control for back pain Diagnosis 1 Degenerative lumbar disc (M51.36) Referral Organization [facility] [employer] sharan Referring Provider First Name Manisha Referring Provider Last Name Charlyacher Referring Provider Specialty Nurse Pract ernesto Referred Organization [facility] Referred Provider Yrn Parsons Referred Address [address], [place],[address] Referred Provider Specialty Pain Medicin e Referral Priority Routine General Notes Paola Henderson 01:21:23 PM >received today, waiting for notes to be locked Paola Henderson 06/13/2023 10:25:26 AM >notes locked, referral faxed Clinical Notes f: [phone] [employer] Other Reason for visit Narrative* Consultation (Routine) - Closed Specialty Diagnoses / Procedures Referred By Contac t Referred To Contact Neurology Diagnoses Aphasia Personal history of other specified conditions Other amnesia Procedures [place] OFFICE/OUTPATIENT NEW LOW MDM 30 MINUTES Manisha Marc NP [address] [facility] [place] [address] [place] [address] Phone: tel: fax: Sugey Dinero MD [address] [place] [address] Phone: tel: fax: Referral ID Status Reason Start Date Expiration Date V isits Requested Visits Authorized [id number] Closed Consult and Treat 05/28/2024 11/24/2024 1 1 [facility] HealthcareReason for visit Narrative* Consultation (Routine) - Closed Specialty Diagnoses / Procedures Referred By Contac t Referred To Contact Psychology Diagnoses Cognitive impairment Procedures [place] OFFICE/OUTPATIENT NEW HIGH MDM 60 MINUTES Gwen Cox DO [address] [place] [address] Phone: tel: fax: Mario Mcknight, PhD [address] [address] Phone: tel: fax: Referral ID Status Reason Start Date Expiration Date V isits Requested Visits Authorized [id number] Closed Specialty Services Required 06/23/2024 12/20/2024 1 1 [facility] Healthcare Summary Purpose Family History No [...] Complaint Memory Concerns possible UTI, cramping, frequency Dysuria Reason for [...] Date Memory Concerns April 21, 2024 2:29pm May 13, 2024 12:00pm possible UTI, cramping, [...] Date Memory Concerns April 21, 2024 2:29pm May 13, 2024 12:00pm possible UTI, cramping, [...] 2024 4:05pm MEHRAN/intestinal malabsorption/elevate whi te blood Elizabeth 2nd, 2025 8:38am MEHRAN/intestinal malabsorption/elevate whi te blood August [...] Work Physical August 24, 2024 10 :57am August 24, 2024 1: 17pm Rash, swelling [...] 24, 2024 10:57am PCOS (polycystic ovarian syndrome) [facility] 2024 10:57am Severe obesity (BMI >= 40) [...] 24, 2024 10:57am PCOS (polycystic ovarian syndrome) Andrzej 2024 10:57am Severe obesity (BMI >= 40) [...] ORGANIZ ATION [facility]/01/2023 [facility] DATE CREATED AUTHOR AUTHOR'S ORGANIZ ATION 01/30/2024 [facility] DATE CREATED AUTHOR AUTHOR'S ORGANIZ ATION 06/25/2024 [facility] DATE CREATED AUTHOR AUTHOR'S ORGANIZ ATION 12/02/2024 [facility] EPIC DATE CREATED AUTHOR AUTHOR'S ORGANIZ ATION 12/21/2024 [facility] REASON FOR VISIT (unrecogniz ed section and content) Reason Comments Memory difficulty Reason Comments Well Women Visit STI Screening Care Teams (unrecognized sec tion and content) Team Status: Active Member Role Status Dates Manisha Marc APRN 2 YEAR [employer] Primary Care Provider Active Team Status: Active Member Role Status Dates Manisha Marc APRN 2 YEAR [employer] Primary Care Provider, Attending Provider Active Team Status: Inactive Member Role Status Dates Manisha Marc APRN 2 YEAR [employer] Primary Care Provider Active Celio Mullins DO Attending Provider Active Team Status: Inactive Member Role Status Dates Manisha Marc APRN 2 YEAR [employer] Primary Care Provider Active Clinton Frazier MD Attending Provider Active Team Status: Inactive Member Role Status Dates Manisha Marc APRN 2 YEAR OLDS [employer]C Primary Care Provider Active Start: July 032022 End: July 03, 2023 Celio Mullins DO Attending Provider Active St art: July 03, 2023 End: July 03, 2023 Team Status: Active Member Role Status Dates Manisha Marc APRN 2 YEAR OLDS [employer]C Primary Care Provider Active Start: July 032022 Edward Gilmore MD Attending Provider Active Start: July 03, 2023 Team Status: Inactive Member Role Status Dates Michelle Ernandez 2 YEAR OLDS [employer]-C Attending Provider Active S tart: July 07, 2023 End: July 07, 2023 Team Status: Inactive Member Role Status Dates Celio Mullins DO Attending Provider Active St art: July 15, 2023 End: July 15, 2023 Team Status: Inactive Member Role Status Dates Manisha Marc APRN 2 YEAR OLDS [employer] Primary Care Provider Active Start: July End: July 19, 2023 Clinton Frazier MD Attending Provider Active Start: July 19, 2023 End: July 19, 2023 Team Status: Inactive Member Role Status Dates Manisha Marc APRN 2 YEAR [employer]C Attending Provider Act rafal Start: August 13, 2023 End: August 13, 2023 Team Status: Inactive Member Role Status Dates Nely Cage [facility] Attending Provider Active Start: August 19, 2023 End: August 19, 2023 Team Status: Active Member Role Status Dates Manisha Marc APRN 2 YEAR [employer] Primary Care Provider, Attending Provider Active Start: August 19, 2023 Team Status: Inactive Member Role Status Dates Manisha Marc APRN 2 YEAR OL[employer]C Attending Provider Act rafal Start: September 03, 2023 End: September 03, 2023 Team Status: Inactive Member Role Status Dates Manisha Marc APRN 2 YEAR OLDS [employer] Primary Care Provider Active Start: October 012023 End: October 01, 2023 Celio Mullins DO Attending Provider Active St art: October 01, 2023 End: October 01, 2023 Team Status: Active Member Role Status Dates Manisha Marc APRN 2 YEAR OL[employer]C Primary Care Provider Active Start: August 142022 Edward Gilmore MD Attending Provider Active Start: August 14, 2023 Team Status: Active Member Role Status Dates Manisha Marc APRN 2 YEAR OLDS [employer] Primary Care Provider, Attending Provider Active Start: October 06, 2023 Team Status: Inactive Member Role Status Dates Manisha Marc APRN 2 YEAR OLDS [employer]C Primary Care Provider Active Start: October 082023 End: October 08, 2023 Gwen Cox DO Attending Provider Active Start: October 08, 2023 End: October 08, 2023 Team Status: Active Member Role Status Dates Manisha Marc DIESEL ENGINE ERECTOR 2 YEAR OLDS [employer] Primary Care Provider, Attending Provider Active Start: October 30, 2023 Team Status: Inactive Member Role Status Dates Manisha Marc DIESEL ENGINE ERECTOR 2 YEAR OLDS [employer]-C Primary Care Provider, Attending Provider Active Start: November 03, 2023 End: November 03, 2023 Team Status: Active Member Role Status Dates Manisha Marc APRN 2 YEAR OLDS [employer]-C Primary Care Provider Active Start: August Edward Gilmore MD Attending Provider Active Start: September 10, 2023 Team Status: Inactive Member Role Status Dates Manisha Marc APRN 2 YEAR OLDS [employer]-C Primary Care Provider Active Start: November 26, 2023 End: November 26, 2023 Celio Mullins DO Attending Provider Active St art: November 26, 2023 End: November 26, 2023 Team Status: Active Member Role Status Dates Manisha Marc APRN 2 YEAR OLDS [employer]-C Primary Care Provider Active Start: January 01, 2024 Edward Gilmore MD Attending Provider Active Start: January 01, 2024 Team Status: Active Member Role Status Dates Manisha Marc APRN 2 YEAR OLDS [employer]-C Primary Care Provider Active Start: April 03, 2024 Edward Gilmore MD Attending Provider Active Start: April 03, 2024 Team Status: Active Member Role Status Dates Manisha Marc APRN 2 YEAR OLDS [employer]-C Primary Care Provider Active Start: April 12, 2024 Jaymie Griffin DO Attending Provider Active Start: April 12, 2024 Team Status: Inactive Member Role Status Dates Manisha Marc APRN 2 YEAR OLDS [employer]-C Primary Care Provider, Attending Provider Active Start: April 21, 2024 End: April 21, 2024 Team Status: Active Member Role Status Dates Manisha Marc APRN 2 YEAR OLDS [employer]-C Primary Care Provider Active Start: April 12, 2024 Agusto Rojas DO Attending Provider Active Sta rt: April 12, 2024 Team Status: Active Member Role Status Dates Manisha Marc APRN 2 YEAR OLDS [employer]-C Primary Care Provider Active Start: April 15, 2024 Agusto Rojas DO Attending Provider Active Sta rt: April 15, 2024 Team Status: Active Member Role Status Dates Mainsha Marc APRN 2 YEAR OLDS [employer]CHO[employer]-C Primary Care Provider Active Start: April 192023 Edward Gilmore MD Attending Provider Active Start: May 13, 2024 Team Status: Active Member Role Status Dates Manisha Marc APRN 2 YEAR OLDS [employer]-C Primary Care Provider, Attending Provider Active Start: June 07, 2024 Team Status: Inactive Member Role Status Dates Manisha Marc APRN 2 YEAR OLDS [employer]-C Primary Care Provider Active Start: May End: [...] Member Role Status Dates Manisha Marc APRN 2 YEAR OLDS [employer]-C Primary Care Provider, Attending Provider Active Start: June 21, 2024 End: June 21, 2024 Steam Gigger Relationship Specialty Start Date End Date Thaddeus Rod MD [address] [place] [address] PCP - General Family Medicine 04/24/23 Steam Gigger Relationship Specialty Start Date End Date Thaddeus Rod MD [address] [place] [address] PCP - General Family Medicine 04/24/23 Steam Gigger Relationship Specialty Start Date End Date Thaddeus Rod MD [address] [place] [address] PCP - General Family Medicine 04/24/23 Team Status: Inactive Member Role Status Dates Manisha Marc APRN 2 YEAR OLDS [employer]-C Primary Care Provider, Attending Provider Active Start: June 25, 2024 End: June 25, 2024 Team Status: Inactive Member Role Status Dates Manisha Marc APRN 2 YEAR OLDS [employer]-C Attending Provider Act rafal Start: June 25, 2024 End: June 25, 2024 Steam Gigger Relationship Specialty Start Date End Date Thaddeus Rod MD [address] [place] [facility] [place] [address] PCP - General Family Medicine 04/24/23 Steam Gigger Relationship Specialty Start Date End Date Thaddeus Rod MD [address] [place] [address] PCP - General Family Medicine 04/24/23 Steam Gigger Relationship Specialty Start Date End Date Thaddeus Rod MD [address] [place] [address] PCP - General Family Medicine 04/24/23 Team Status: Active Member Role Status Dates Tiffanie Villalobos MD Attending Provider Active St art: June 29, 2024 Team Status: Active Member Role Status Dates Manisha Marc APRN 2 YEAR OLDS [employer]-C Primary Care Provider Active Start: August 032023 Edward Gilmore MD Attending Provider Active Start: August 03, 2024 Team Status: Inactive Member Role Status Dates Manisha Marc APRN 2 YEAR OLDS [employer]-C Primary Care Provider, Attending Provider Active Start: August 09, 2024 End: August 09, 2024 Team Status: Inactive Member Role Status Dates Manisha Marc APRN 2 YEAR OLDS [employer]-C Attending Provider Active Start: July End: August 09, 2024 PHYSICIAN NO FAMILY Primary Care Provider Active Start: August 09, 2024 End: August 09, 2024 Team Status: Inactive Member Role Status Dates Hilaria Burgos DO Attending Provider Active St art: August 19, 2024 End: August 19, 2024 Manisha Marc APRN 2 YEAR OLDS [employer]-C Primary Care Provider Active Start: August 19, 2024 End: August 19, 2024 Team Status: Active Member Role Status Dates Hilaria Burgos DO Attending Provider, Other Provider Active Start: August 19, 2024 Manisha Marc APRN 2 YEAR OLDS [employer]-C Primary Care Provider Active Start: August Team Status: Inactive Member Role Status Dates Manisha Marc APRN 2 YEAR OLDS [employer] TE[employer]-C Primary Care Provider, Attending Provider Active Start: August 24, 2024 End: August 24, 2024 Team Status: Active Member Role Status Dates Manisha Marc APRN 2 YEAR OLDS [employer] TE[employer]-C Primary Care Provider Active Start: August 24, 2024 Edward Gilmore MD Attending Provider Active Start: August 24, 2024 Team Status: Inactive Member Role Status Dates Manisha Marc APRN 2 YEAR OLDS [employer]-C Primary Care Provider Active Start: August End: August 28, 2024 Viry Holder APRN Attending Provider Active S tart: August 28, 2024 End: August 28, 2024 Team Status: Active Member Role Status Dates Manisha Marc APRN 2 YEAR OLDS [employer]-C Primary Care Provider Active Start: August Edward Gilmore MD Attending Provider Active Start: August 27, 2024 Team Status: Inactive Member Role Status Dates Manisha Marc APRN 2 YEAR OLDS [employer]-C Primary Care Provider Active Start: September 272024 End: September 27, 2024 Viry Holder APRN Attending Provider Active S tart: September 27, 2024 End: September 27, 2024 Steam Gigger Relationship Specialty Start Date End Date Thaddeus Rod MD [address] [place] [address] PCP - General Family Medicine 04/24/23 Team Status: Active Member Role Status Dates Manisha Marc APRN 2 YEAR OLDS [employer]-C Primary Care Provider Active Start: October 122024 Tiffanie Villalobos MD Attending Provider Active St art: October 12, 2024 Team Status: Active Member Role Status Dates Manisha Marc APRN 2 YEAR OLDS [employer] TE[employer]-C Primary Care Provider Active Start: November 03, 2024 Marko Oscar DO Attending Provider Active Start : November 03, 2024 Team Status: Active Member Role Status Dates Manisha Marc APRN 2 YEAR OLDS [employer] TE[employer]ER-C Primary Care Provider Active Start: November 09, 2024 Edward Gilmore MD Attending Provider Active Start: November 09, 2024 Team Status: Inactive Member Role Status Dates Manisha Marc APRN 2 YEAR OLDS [employer]CHO[employer] TE[employer]ER-C Primary Care Provider, Attending Provider Active Start: [...] BE BASED ON THE PRIMARY CLINICAL RECORDS. [employer] [facility]. provides no warranty or guarantee of the accuracy or completeness of information in this document.
[2024-12-28 10:30] LABS: C Reactive Protein 0.96 mg/dL (<=0.50); Lactate Dehydrogenase 190 U/L (81-234)
[2024-12-30 15:13] LABS: Albumin 3.4 g/dL (2.9-4.4); Alpha-1-Globulin 0.2 g/dL (0.0-0.4); Alpha-2-Globulin 0.8 g/dL (0.4-1.0); Free Kappa Lt Chains,S 18.1 mg/L (3.3-19.4); Free Lambda Lt Chains,S 19.6 mg/L (5.7-26.3); Gamma Globulin 1.1 g/dL (0.4-1.8); Immunoglobulin A, Qn, Serum 122 mg/dL (87-352); Immunoglobulin G, Qn, Serum 1135 mg/dL (586-1602); Immunoglobulin M, Qn, Serum 105 mg/dL (26-217); Kappa/Lambda Ratio,S 0.92 (0.26-1.65); Protein, Total 6.6 g/dL (6.0-8.5)
[2024-12-30 20:08] LABS: Immunoglobulin E, Total 236 IU/mL (6-495)
== END 2024-12-28 09:31 | disposition home or self-care (01) ==
LOC: LAB 09:32
PROVIDERS: PCP Nurse Practitioner Family; Visit Provider Internal Medicine Hematology & Oncology
DX: D72.89 Other specified disorders of white blood cells (principal); D64.9 Anemia, unspecified; K90.9 Intestinal malabsorption, unspecified; D50.9 Iron deficiency anemia, unspecified
CPT/HCPCS: 36415; 82784; 82785; 83521; 83615; 84155; 84165; 85025; 85045; 85652; 86140; 86334

== ENCOUNTER 2025-01-04 07:31 | Outpatient (RCR) | payer OTHER, SELFPAY | END 2025-01-05 08:04 | disposition home or self-care (01) | LOC: HEMC 07:31 | PROVIDERS: PCP Nurse Practitioner Family; Visit Provider Internal Medicine Hematology & Oncology | DX: D72.829 Elevated white blood cell count, unspecified (principal); D64.9 Anemia, unspecified; K90.9 Intestinal malabsorption, unspecified; D50.9 Iron deficiency anemia, unspecified; I10 Essential (primary) hypertension; Z87.440 Personal history of urinary (tract) infections; E28.2 Polycystic ovarian syndrome; K76.0 Fatty (change of) liver, not elsewhere classified; K21.9 Gastro-esophageal reflux disease without esophagitis | CPT/HCPCS: G0463 ==

== ENCOUNTER 2025-01-13 08:36 | Outpatient (OUT) | payer OTHER, SELFPAY ==
--- OUTSIDE RECORDS SUMMARY | 2016-05-03 14:30 | XMS_ITS | Encounter Summary ---
Author Organization [facility] Address [address] [place] [address] Care Team Providers Care Pest Management Supervisor Name Role Phone Desi Rg APRN, CNP Primary Care Provide r Encounter Details Date Type Department Care Team (Late st Contact Info) Description 05/03/2016 2:30 PM EDT Hospital Encounter [facility] [address] [place] [address] Desi Rg APRN - CNP [address] [place] [address] Chris Williamson PTA Social History Tobacco Use [...] Chris Williamson - 05/03/2016 4:57 PM EDT [facility] Outpatient Physical Therapy Daily Note Patient: Ashly Mehta : 1990 Referring Practitioner: Referral Date : 04/26/16 Date: 05/03/2016 Referral Date : 04/26/16 Diagnosis: L ankle pain/sprain Treatment Diagnosis: Difficulty walking Onset Date: 04/17/16 PT Insurance Information: [facility] Total # of Visits Approved: 12 Per Physician Order Total # of Visits to Date: 2 No Show: 0 Canceled Appointment: 0 Pre-Treatment Pain: 4/10 Subjective: Pt reports ankle still hurts been trying to walk more on it Exercises/Modalities/Manual: See DocFlow Sheet Assessment Assessment: Pt required encouragement to perform exercises, c/o pain with [place] AROM and BAPS withmost intense pain located [...] functional ROM without complaints of increased pain. [facility] Goals - Time Frame for long term care social worker goals : 4 weeks FCI goal 1: Pt will be independent and compliant with her HEP FCI goal 2: Pt pain will be controlled and less than 2/10 in the L ankle to improve ability to ambulate with fluidity and efficiency. long term care social worker goal 3: Pt strength of L ankle will allow at least 10 single leg heel raises to indicate improved propulsion for gait. FCI goal 4: Pt strength will be 5/5 and pt will demonstrate good stability for RTW. Post Treatment Pain: 4/10 Time In: 1432 Time Out: 1527 Timed Code Treatment Minutes: 40 Minutes Total Treatment Time: 55 Minutes Chris Williamson Therapy License Number: [email or web address] TEACHER Date: 05/03/2016 Cosigned by Nely Tiwari PT at 05/06/2016 11:37 AM EDT documented in this encounter Plan of Treatment Not on file documented as of this encounter Visit Diagnoses Not on filedocumented in this encounter Care Teams Pest Management Supervisor Relationship Specialty Start Date End Date Desi Rg APRN - GRADUATING MACHINE OPERATOR [address] [place], [place] [address] [place] [address] PCP - General 05/01/16 05/05/16 documented as of this encounter
--- OUTSIDE RECORDS SUMMARY | 2016-05-27 13:15 | XMS_ITS | Encounter Summary ---
Author Organization [facility] Address [address] [place] [address] Care Team Providers Care Package Delivery Driver Name Role Phone House Sr., Thaddeus RAMOS Primary Care Provider + Encounter Details Date Type Department Care Team (Late st Contact Info) Description 05/27/2016 1:15 PM EDT Hospital Encounter [facility] Physical Therapy [address] [place] [phone] Desi Rg, PLATEMAN - LAND DEVELOPER [address] [place] [address] Aaron Hanley Social History Tobacco Use Types [...] Tiwari, PT - 10/22/2016 11:53 AM EST [facility] Outpatient Physical Therapy Discharge Summary Patient: Ashly Mehta : 1990 Referring physician: Desi Rg NP Referring Practitioner: Desi Rg CNP Diagnosis: L ankle pain/sprain Date Treatment Initiated: 05/02/16 Date of Last Treatment: 05/27/16 PT Visit Information Onset Date: 04/17/16 PT Insurance Information: [facility] Total # of Visits Approved: 12 [...] ROM without complaints of increased pain. -progressing tank terminal gauger goals Time Frame for tank terminal gauger goals : 4 weeks tank terminal gauger goal 1: Pt will be independent and compliant with her HEP longterm goal 2: Pt pain will be controlled and less than 2/10 in the L ankle to improve ability to ambulate with fluidity and efficiency. longterm goal 3: Pt strength of L ankle will allow at least 10 single leg heel raises to indicate improved propulsion for gait. tank terminal gauger goal 4: Pt strength will be 5/5 and pt will demonstrate good stability for RTW. Reason for Discharge [] Goals Achieved [] Poor Follow Through/Attendance [] Optimal Function Achieved [x] Patient Discharged Self [] Hospitalization [] Physician discharge Thank you for this referral Nely Tiwari PT, DPT Date: 10/22/2016 documented in this encounter Progress Notes * Aaron Hanley - 05/27/2016 2:32 PM EDT [facility] Outpatient Physical Therapy Daily Note Patient: Ashly Mehta : 1990 Referring Practitioner: Desi Rg CNP Referral Date : 04/26/16 Date: 05/27/2016 Referring Practitioner: Desi Rg CNP Referral Date : 04/26/16 Diagnosis: L ankle pain/sprain Treatment Diagnosis: Difficulty walking Onset Date: 04/17/16 PT Insurance Information: [facility] Total # of Visits Approved: 12 [...] Nursing Home Goals - Time Frame for tank terminal gauger goals : 4 weeks tank terminal gauger goal 1: Pt will be independent and compliant with her HEP tank terminal gauger goal 2: Pt pain will be controlled and less than 2/10 in the L ankle to improve ability to ambulate with fluidity and efficiency. tank terminal gauger goal 3: Pt strength of L ankle will allow at least 10 single leg heel raises to indicate improved propulsion for gait. tank terminal gauger goal 4: Pt strength will be 5/5 and pt will demonstrate good stability for RTW. Post Treatment Pain: 02/24 Time In: 1330 (Pt was late ) Time Out: 1430 Timed Code Treatment Minutes: 30 Minutes Total Treatment Time: 45 Minutes Aaron Hanley Therapy License Number: CHOCOLATE PACKER Date: 05/27/2016 Cosigned by Ewa Tiwari PT at 06/18/2016 2:07 PM EDT documented in this encounter Plan of Treatment Not on file documented as of this encounter Visit Diagnoses Not on filedocumented in this encounter Care Teams Package Delivery Driver Relationship Specialty Start Date End Date Thaddeus Alfredo Sr., DO [address] [place] [address] PCP - General 05/06/16 documented as of this encounter
--- OUTSIDE RECORDS SUMMARY | 2024-11-19 06:20 | XMS_ITS ---
Author Organization The [facility] in [place] Address [address] [place] [address] Care Team Providers Care Swing Saw Operator Name Role Phone Manisha Marc CNP Primary Care Provider U Aaron Willis Unavailable [phone] REASON FOR VISIT 3 mos Encounters Encounter Location Date Provider Diagnosis Urology [address] [place] [address] 11/19/2024 Aaron Eastman Plan Of Treatment Next Appt Details Provider Name:Tiffanie Villalobos , 06/07/2025 08:30:00 AM, [address] [place], [address], Provider Name:Aaron Eastman , 07/12/2025 10:30:00 AM, [address] [place], [address], Progress Notes * Ashly PACK KDOB:1990 (34 yo F)Acc No.[id number]:11/19/2024 UNLOCKED PROGRESS NOTE Patient: Ashly HARO Gilberto Provider: Brett Eastman MD :1990 A ge:34 Y S ex:Female Date:11/19/2024 Address[address] [place], [id number] Pcp:Manisha Marc CNP Subjective: * Chief Complaints: * 1 . 3 mos. * Medical History: Objective: * Vitals: Assessment: Plan: * Treatment: * * Electronic signature of Urban Eastman MD, [id number] on 01/13/2025 at 08:39 AM EDT Sign off status: Pending Visit Status: R /S (Rescheduled) * Provider: Brett Eastman MD Date: 0 11/19/2024 Generated for [facility] quiles/Gifty/eTaureliasmitting on: 0 01/13/2025 08:39 AM EDT
--- OUTSIDE RECORDS SUMMARY | 2024-12-08 10:11 | XMS_ITS | Continuity of Care Document ---
Author Organization [facility] Address [address] [place] [address] Phone Care Team Providers Care Workers Compensation Claims Adjuster Name Role Phone Serjio DIAZS, Fermin Unavailable [...] Active carbamazepine ER 100 mg capsule,extended release [id number] - Active naproxen sodium 550 mg tablet [...] Prophylaxis Adult Nutrit Couns For Control Of [place] Dis Nov Oral Hygiene Instruction Resin Composite 2s; Posterior Oral Hygiene Instruction Extract; Erupted Th/exposted Rt 025 Oral Hygiene Instruction Intraoral-complete Series (bw) 25 Oral Hygiene Instruction Comp Oral Eval New/estab Patient 2024 Extract; Erupted Th/exposted Rt 025 Oral Hygiene Instruction Intraoral-periapical 1st Film Bitewig-single Film Limited Oral Eval Nutrit Couns For Control Of [place] Dis Sep Extract; Erupted Th/exposted Rt 024 Nutrit Couns For Control Of [place] Dis Jun Awkcwbuvs-wxmzdordij-fuql Additional Jun Bitewig-single Film Oral Hygiene Instruction Limited Oral Eval Edwqxfool-ibnjspzhqs-nmyf Additional Feb Bitewig-single Film Oral Hygiene Instruction Limited Oral Eval Advance Directives Directive Yes / No Effective Date File Name No Information Encounters Encounter Description Practice Location Reason(s) For Visit Diagnoses Date Provider Providers Copied on Encounter [facility], [address] [place] [address], [id number], tel:[phone] Dental Clinic fill (chief complaint) No Information Serjio SENIOR Fermin. [address] [place] [address], [id number] , [place]. tel:[phone] [facility], [address] [place] [address], [id number], [place] tel:[phone] Dental Clinic Encounter for screening for dental disorders Serjio SENIOR Fermin. [address] [place] [address], [id number] , . tel:[phone] [facility], [address] [place] [address], [id number], tel:[phone] Dental Clinic pa (chief complaint) Body mass index [BMI] 50.0-59.9, adultEncounter for screening for dental disorders [facility] Fermin. [address] [place], [place], [id number] , [place]. tel: [phone] [facility], [address] [place], [place], [id number], [place] tel:[phone] Dental Clinic Encounter for screening for dental disorders [facility] Fermin. [address] [place], [place], [id number] , [place]. tel: [phone] [facility], [address] [place] [address], [id number], [place] tel:[phone] Dental Clinic ext (chief complaint) Encounter for screening for dental disorders [facility] Fermin. [address] [place], [place], [id number] , [place]. tel: [phone] [facility], [address] [place] [address], [id number], [place] tel:[phone] Dental Clinic dn (chief complaint) Encounter for screening for dental disorders [facility] Fermin. [address] [place] [address], [id number] , [place]. tel: [phone] [facility], [address] [place] [address], [id number], [place] tel:[phone] Dental Clinic ext (chief complaint) Encounter for screening for dental disorders [facility] Fermin. [address] [place], [place], [id number] , [place]. tel: [phone] [facility], [address] [place] [address], [id number], [place] tel:[phone] Dental Clinic DN (chief complaint) Body mass index [BMI] 50.0-59.9, adultEncounter for screening for dental disorders Jason Cuellar. [address] [place], [place], [id number] , [place]. tel: [phone] [facility], [address] [place] [address], [id number], [place] tel:[phone] Dental Clinic ext (chief complaint) Encounter for screening for dental disorders Jason Cuellar. [address] [place], [place], [id number] , [place]. tel:[phone] [facility], [address] [place] [address], [id number], [place] tel:[phone] Dental Clinic dl (chief complaint) Encounter for screening for dental disorders Jason Cuellar. [address] [place], [place], [id number] , [place]. tel:[phone] [facility], [address] [place] [address], [id number], [place] tel:[phone] Dental Clinic de (chief complaint) Encounter for screening for dental disorders Jason Cuellar. [address] [place], [place], [id number] , [place]. tel:[phone] Family History Family Member Type Diagnosis Age At Onset No Information Payers Payer name Insurance type Covered libertarian ID Payton florentino(joni) D [facility] Medicaid [facility] [id number] D Medicaid [facility] [id number] Social History Type Description Quantity Date Captured [...] nt education, guidance, and counseling completed Goal Depression scree laith. Due on due Goal Tdap Vaccine. Due on 2024 due Goal Hepatitis C scre ening. Due on due Goal Influenza vaccine. Due on [place] due Goal PRAPARE ASSESSMENT. Due on due Goal Unhealthy drug u se screening. Due on due Goal HPV. Due on due Goal RLP. Due on due Goal Tdap. Due on due Goal Hep A. Due [...] due Goal HPV. Due on due Goal Unhealthy drug u se screening. Due on due Goal Tdap Vaccine. Due on 2023 due Referral Ordered: Manisha Marc timeframe: 6 [...]
--- OUTSIDE RECORDS SUMMARY | 2025-01-04 05:30 | XMS_ITS ---
Author Organization [facility] in [place] Address [address] [place] [address] Care Team Providers Care Advanced Practice Psychiatric Nurse Name Role Phone Manisha Marc CNP Primary Care Provider U Tiffanie Bill Unavailable [phone] REASON FOR VISIT MD Encounters Encounter Location Date Provider Diagnosis [facility] [address] [place] [address] 01/04/2025 Tiffanie Villalobos Plan Of Treatment Next Appt Details Provider Name:Tiffanie Villalobos , 06/07/2025 08:30:00 AM, [address] [place], [address], Provider Name:Aaron Eastman , 07/12/2025 10:30:00 AM, [address] [place] [address], [phone], Progress Notes * Ashly PACK KDOB:1990 (34 yo F)Acc No.[id number]:01/04/2025 UNLOCKED PROGRESS NOTE Progress Notes Patient: Keesha HAROna Gilberto Provider: Mariola Villalobos M.D. :1990 A ge:34 Y S ex:Female Date:01/04/2025 Address[address] [place], [id number] Pcp:Manisha Marc CNP Subjective: * Chief Complaints: * 1 . MD. * Medical History: Objective: * Vitals: Assessment: Plan: * Treatment: * * Electronic signature of Aiden Villalobos MD, [id number] on 01/13/2025 at 08:39 AM EDT Sign off status: Pending Visit Status: A [facility] (Voice) * Provider: Mariola Villalobos M.D. Date: 0 01/04/2025 Generated for [facility] quiles/[employer]/eTransmitting on: 0 01/13/2025 08:39 AM EDT
--- NOTE | 2025-01-13 08:36 | PM.CN ---
Consult Note: HPI Data of Consult Patient: known to practice within the last 3 years Consult date: 01/13/25 Requesting Physician: eVra Blanco NP Primary Care Provider: CHRIS LOPEZ Consult Narrative Reason for consult: f/u Narrative: Ashly Mehta a pleasant 34 year old female presents for evaluation and management of low back pain. Patient has noticed this low back pain since a fall at work in 2018 where she injured her ankle and had to wear a boot, noticed the pain started after she stopped wearing the boot. Today rating pain 6/10 in low back, aching burning with weakness of BLE. Pain increased with pushing, pulling, standing, walking, activity, decreased with sleep sitting and lying down. Has tried chiropractor care without success. failed to benefit from tylenol, motrin, celebrex, meloxicam, gabapentin, flexeril and baclofen. pt failed to benefit from 6 weeks of PT for low back pain, cannot tolerate HEP. currently engaged in PT for cervical pain, recent cervical CT shows ddd and facet arthropathy. pt recently underwent lumbar MRI as noted below. pt was cleared by heme/onc since las visit, no new diagnosis or pending workup. cc:: CC: Vera Blanco NP Review of Systems ROS Status of ROS 10 or more systems reviewed and unremarkable except as noted in history and below Musculoskeletal Reports: back pain, neck pain, extremity pain and muscle weakness PFSH PFSH Medical History Herpes genitalia ?A60.00 - Herpesviral infection of urogenital system, unspecified (ICD-10) Back pain ?M54.9 - Dorsalgia, unspecified (ICD-10) Arthritis ?M19.90 - Unspecified osteoarthritis, unspecified site (ICD-10) Anemia ?D64.9 - Anemia, unspecified (ICD-10) Depression ?F32.A - Depression, unspecified (ICD-10) Anxiety ?F41.9 - Anxiety disorder, unspecified (ICD-10) COVID-19 ?U07.1 - COVID-19 (ICD-10) Asthma ?J45.909 - Unspecified asthma, uncomplicated (ICD-10) Seizures ?R56.9 - Unspecified convulsions (ICD-10) GERD (gastroesophageal reflux disease) ?K21.9 - Gastro-esophageal reflux disease without esophagitis (ICD-10) Sleep apnea ?G47.30 - Sleep apnea, unspecified (ICD-10) Palpitations ?R00.2 - Palpitations (ICD-10) Prediabetes ?R73.03 - Prediabetes (ICD-10) Hypertension ?I10 - Essential (primary) hypertension (ICD-10) PCOS (polycystic ovarian syndrome) ?E28.2 - Polycystic ovarian syndrome (ICD-10) Abnormal uterine bleeding (AUB) ?N93.9 - Abnormal uterine and vaginal bleeding, unspecified (ICD-10) Menorrhagia ?N92.0 - Excessive and frequent menstruation with regular cycle (ICD-10) Surgical History History of laparoscopy ?Z98.890 - Other specified postprocedural states (ICD-10) History of colposcopy ?Z98.890 - Other specified postprocedural states (ICD-10) History of wisdom tooth extraction ?K08.409 - Partial loss of teeth, unspecified cause, unspecified class (ICD-10) History of cholecystectomy ?Z90.49 - Acquired absence of other specified parts of digestive tract (ICD-10) Family History Other Family history of heart disease Family history of stroke Social History Within the past year, how often did you have a drink containing alcohol: monthly or less Smoking status: Never smoker 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 Highest level of school completed/degree received: Associate degree: occupational, technical, vocational program Little interest or pleasure in doing things: not at all Feeling down, depressed, or hopeless: not at all Meds Home Medications and Allergies Home Medications ?Medication ?Instructions ?Recorded ?Confirmed ?Type albuterol sulfate 90 mcg/actuation 2 inh inhalation Q6H PRN shortness 01/17/23 04/14/24 History aerosol inhaler (ProAir HFA) of breath or wheezing metformin 500 mg tablet 500 mg PO BID 01/17/23 10/30/23 History valacyclovir 1 gram tablet 1,000 mg PO BID 06/25/23 11/18/24 History lamotrigine 25 mg tablet (Lamictal) 25 mg PO Q12H 10/30/23 04/14/24 History duloxetine 60 mg capsule,delayed 120 mg PO .HS 04/14/24 11/18/24 History release lisinopril 10 mg tablet mg 04/14/24 History methenamine hippurate 1 gram tablet g 11/18/24 History multivitamin 1 tab PO DAILY 11/18/24 11/18/24 History pantoprazole 40 mg tablet,delayed mg PO 11/18/24 History release Allergies Allergy/AdvReac Type Severity Reaction Status Date / Time amoxicillin Allergy Rash Verified 06/24/24 02:46 cefaclor Allergy Rash Verified 06/24/24 02:46 erythromycin base Allergy Hives Verified 06/24/24 02:46 Exam Constitutional Documenting provider has reviewed patient's vital signs: yes Common normals: no apparent distress, oriented x3, healthy appearing, alert and well nourished General appearance: cooperative Nutritional appearance: obese HENMT Common normals: normocephalic, hearing grossly normal bilaterally and moist oral mucous membranes Head and scalp: normocephalic Eye Common normals: PERRL Pupil: PERRL Neck & C-Spine Common normals: full ROM General: normal visual inspection Cervical spine: cervical ROM normal and pain with cervical ROM Chest Common normals: inspection of chest normal Respiratory Common normals: normal respiratory effort, no retractions and no use of accessory muscles Back & Pelvis Lumbar spine/lower back: ROM limited, pain with ROM, straight leg raise positive right and straight leg raise positive left Sacroiliac joints: SI joint(s) abnormal (bilateral marissa, thigh thrust positive) Other: altered sensation to bilateral L3,4,5 pattern strength 4/5 in BLE Extremity Common normals: normal to inspection and full ROM Other: tenderness over bilateral GTB Neuro Common normals: oriented x3 Sensorium/orientation: alert Motor exam: no movement abnormalities noted Psych Common normals: mental status grossly normal, thought process normal, cooperative, affect normal, speech normal and activity/motor behavior normal Speech: normal speech Thought process: normal thought process Results Imaging Lumbar MRI: Attestation: I have reviewed the pertinent imaging results. Radiologist's impression: Lower thoracic level: Unremarkable L1-2 :Unremarkable L2-3: Mild diffuse disc bulge. Mild central canal stenosis. Posterior element hypertrophy. Mild bilateral neural foraminal narrowing L3-4: Mild diffuse disc bulge. No central canal stenosis. Posterior element hypertrophy. Mild bilateral neural foraminal narrowing L4-5: Mild diffuse disc bulge. Mild central canal stenosis. Posterior element hypertrophy. Mild bilateral neural foraminal narrowing. L5-S1: Unremarkable MR/MR lumbar spine wo con IMPRESSION: Multilevel discovertebral degenerative changes. Diffuse decreased T1 and T2 signal changes of the bone marrow. infiltrative changes/marrow fatty reconversion changes should be considered. Malignancy should be excluded. May represent lymphoproliferative disorder. Additional Findings Additional findings: If on a controlled substance or opioids, I have checked an [place] report on this patient and there are no aberrancies noted in the prescribing history.??If on a controlled substance or opioid a drug screen was completed and reviewed within the last year, and if there has not been a drug screen completed we ordered one today to monitor higher risk, state monitored pain medication use. As part of providing excellent, safe, comprehensive care, the following was completed at our patient's visit: 1. A medication reconciliation and review to ensure accurate knowledge of current/active medications, including asking our patients to inform us about any [id number] medications or herbal remedies/nutritional supplements/alternative remedies. 2. A review to specifically ensure our patients have had annual screening for screening for depression, screening for tobacco use, and screening for unhealthy alcohol use. For concerning screenings had a discussion with the patient, provided patient education, and recommended follow-up with primary care provider when appropriate. If patient noted with a risk of falling, they received education on strength, gait, and balance training to prevent future risk of falling. Assessment and Plan Assessment and Plan (1) Lumbar stenosis with neurogenic claudication: Assessment and Plan: The patient has had over 3 months of moderate to severe low back and BLE pain with functional impairment and inadequate response to conservative care including NSAIDS (unless there are contraindication such as concurrent blood thinners), multiple oral or topical pain medications, and home exercise program/physical therapy.? Patient has completed >6 weeks of guided home exercise program and/or formal physical therapy program without relief of their symptoms.? The Oswestry Disability Index was completed, and the patient scored a 50%.? The patient noted the following:?? moderate to severe pain impacting ADLs, sitting, standing, walking, sleeping, social life, and travel? We discussed the risks and benefits of the procedure with the patient, and we are NOT planning on using sedation as outlined in the guidelines from Medicare unless there is a documented reason that sedation would be strongly recommended.?? ?The procedure will be completed with fluoroscopic guidance.? (2) Lumbar degenerative disc disease: (3) Lumbar radiculopathy: (4) Greater trochanteric bursitis: Qualifiers: Laterality: unspecified laterality Qualified Code(s): M70.60 - Trochanteric bursitis, unspecified hip (5) Myofascial pain syndrome: (6) Lumbar spondylosis: (7) Chronic neck pain: (8) Degenerative disc disease, cervical: (9) Cervical spondylosis: Plan bilateral L4-5 TFESI under fluoroscopy continue continue PT for chronic neck pain start methocarbamol 500-1000mg BID PRN pain/spasms continue HEP as tolerated continue otc nsaids and tylenol PRN f/u 2 weeks after SHARON
--- OUTSIDE RECORDS SUMMARY | 2025-01-13 08:39 | XMS_ITS | Encounter Summary ---
Author Organization [facility] Address [address] [place] [address] Care Team Providers Care Department Coordinator Name Role Phone House, Thaddeus Brown MD Primary Care Provider Consuelo Love PERIPHERAL EQUIPMENT OPERATOR Unavailable [phone] Akil Cox DO Unavailable [phone] Manisha Marc PERIPHERAL EQUIPMENT OPERATOR Unavailable [phone] Encounter Details Date Type Department Care Team (Late st Contact Info) Description 02/04/2023 Abstract [facility] [address] [place] [address] Marko Oscar DO [address] [facility] [address] [place] [place], [place] [id number] Social History Tobacco Use Types Packs/Day Years Used Date Smoking Tobacco: Never Assessed Comments Unknown Sex and Gender Information Value Date Recorded Sex Assigned at Female 03/11/2023 3:54 PM EDT Legal Sex Female 6:38 PM EDT Gender Identity Female 03/11/2023 3:54 PM EDT Sexual Orientation Don't know 03/11/2023 3: 54 PM EDT documented as of this encounter Plan of Treatment Upcoming Encounters Date Type Department Care Team (Late st Contact Info) Description 03/29/2025 9:00 AM EDT Office Visit [facility]IE CLARKE [address] [address] Stephenie Cheney DO [address] [place] [address] 11/09/2025 3:00 PM EDT Office Visit [facility] [address] [facility] [place] [address] Marko Oscar DO [address] [facility] [address] [place] [address] documented as of this encounter Visit Diagnoses Not on filedocumented in this encounter Care Teams Department Coordinator Relationship Specialty Start Date End Date Thaddeus Alfredo MD [address] [place] [address] PCP - General Family Medicine 04/24/23 11/09/24 Consuelo Love NP [address] [place] [address] Nurse Practitioner Neurology 11/10/24 Akil Cox DO [address] [address] Referring Physician Neurology 11/10/24 Manisha Marc NP [address] [facility] [address] [place], [place] [address] Referring Physician Family Medicine 11/10/24 documented as of this encounter
--- OUTSIDE RECORDS SUMMARY | 2025-01-13 08:39 | XMS_ITS | Encounter Summary ---
Author Organization [facility] Address [address] [place] [address] Care Team Providers Care Manager Group Home Name Role Phone Thaddeus Alfredo MD Primary Care Provider [phone] Consuelo Love COMPUTER SYSTEMS TECHNOLOGY INSTRUCTOR Unavailable [phone] Akil Cox DO Unavailable [phone] Manisha Marc COMPUTER SYSTEMS TECHNOLOGY INSTRUCTOR Unavailable [phone] Encounter Details Date Type Department Care Team (Late st Contact Info) Description 04/07/2023 Abstract [facility] [address] [place] [address] Zane Wright, DPM [address] [place] [address] Social History Tobacco Use Types Packs/Day Years Used Date Smoking Tobacco: Never Alcohol Use Standard Drinks/Week Comments Never 0 (1 standard drink = 0.6 oz pur e alcohol) Comments Unknown Sex and Gender Information Value Date Recorded Sex Assigned at Female 03/11/2023 3:54 PM EDT Legal Sex Female 6:38 PM EDT Gender Identity Female 03/11/2023 3:54 PM EDT Sexual Orientation Don't know 03/11/2023 3: 54 PM EDT COVID-19 Exposure Response Date Recorded In the last 10 days, have yo u been in contact with someone who was confirmed or suspected to have Coronavirus/COVID-19? No / Unsure 04/01/2023 8:35 AM EDT documented as of this encounter Plan of Treatment Upcoming Encounters Date Type Department Care Team (Late st Contact Info) Description 03/29/2025 9:00 AM EDT Office Visit [facility]IE CLARKE [address] [facility] [address] [place] [address] Stephenie Cheney DO [address] [place] [address] 11/09/2025 3:00 PM EDT Office Visit [facility] [address] [facility] [place] [address] Marko Oscar DO [address] [facility] [place] [address] documented as of this encounter Visit Diagnoses Not on filedocumented in this encounter Care Teams Manager Group Home Relationship Specialty Start Date End Date Thaddeus Alfredo MD [address] [place] [address] PCP - General Family Medicine 04/24/23 11/09/24 Consuelo Love NP [address] [place] [address] Nurse Practitioner Neurology 11/10/24 Akil Cox DO [address] [address] Referring Physician Neurology 11/10/24 Manisha Marc NP [address] [facility] [place] [address] Referring Physician Family Medicine 11/10/24 documented as of this encounter
--- OUTSIDE RECORDS SUMMARY | 2025-01-13 08:40 | XMS_ITS | Encounter Summary ---
Author Organization [facility] Address [address] [place] [address] Care Team Providers Care Tetryl Boiling Tub Operator Name Role Phone House, Thaddeus Brown MD Primary Care Provider [phone] Consuelo Love TECHNICAL FELLOW Unavailable [phone] Akil Cox DO Unavailable [phone] Manisha Marc TECHNICAL FELLOW Unavailable Encounter Details Date Type Department Care Team (Late st Contact Info) Description 10/18/2024 Abstract [facility] [address] [place] [address] Marko Oscar DO [address] [facility] [address] [place] [place], [place] [id number] Social History Tobacco Use Types Packs/Day Years Used Date Smoking Tobacco: Never Alcohol Use Standard Drinks/Week Comments Not Asked 0 (1 standard drink = 0.6 oz pur e alcohol) Comments No Sex and Gender Information Value Date Recorded [...] 03/29/2025 9:00 AM EDT Office Visit [facility] [place] [address] [facility] [address] [place] [address] Stephenie Cheney DO [address] [place] [address] 11/09/2025 3:00 PM EDT Office Visit [facility] [address] [facility] [place] [address] Marko Oscar DO [address] [facility] [place] [address] documented as of this encounter Visit Diagnoses Not on filedocumented in this encounter Care Teams Tetryl Boiling Tub Operator Relationship Specialty Start Date End Date Thaddeus Alfredo MD [address] [place] [address] PCP - General Family Medicine 04/24/23 11/09/24 Consuelo Love NP [address] [address] Nurse Practitioner Neurology 11/10/24 Akil Cox DO [address] [address] Referring Physician Neurology 11/10/24 Manisha Marc NP [address] [facility] [place] [address] [place] [address] Referring Physician Family Medicine 11/10/24 documented as of this encounter
--- OUTSIDE RECORDS SUMMARY | 2025-01-13 08:40 | XMS_ITS | Referral Summary ---
Author Organization [facility] Address [address] [place] [address] Care Team Providers Care Manager Special Events Name Role Phone Unavailable Primary Care Provider Unavailabl e Social History Tobacco Use Types Packs/Day Years Used Date Smoking Tobacco: Never Assessed Sex and Gender Information Value Date Recorded Sex Assigned at Not on file Gender Identity Not on file Sexual Orientation Not on file Plan of Treatment Not on file
--- OUTSIDE RECORDS SUMMARY | 2025-01-13 08:40 | XMS_ITS | Encounter Summary ---
Author Organization [facility] Address [address] [place] [address] Care Team Providers Care Superintendent Production Name Role Phone House, Thaddeus Brown MD Primary Care Provider [phone] Consuelo Love NET REPAIRER Unavailable [phone] Akil Cox DO Unavailable [phone] Manisha Marc NET REPAIRER Unavailable [phone] Encounter Details Date Type Department Care Team (Late st Contact Info) Description 03/09/2024 Orders Only [facility] [address] [place] [address] Stella Marcos LPN [address] [facility] [address] [place] [address] Social History Tobacco Use Types Packs/Day Years [...] AM EDT Office Visit SUSIE [place] [address] [facility] [address] [place] [phone] Stephenie Cheney DO [address] [place], [place] [id number] 11/09/2025 3:00 PM EDT Office Visit [facility] [address] [facility] [place] [address] Marko Oscar DO [address] [facility] [address] [place] [address] documented as of this encounter Procedures Procedure Name Priority Date/Time Associated Diagnosis Comments PAP SMEAR Routine 11/03/2023 12:00 AM EDT documented in this encounter Results * Pap Smear (11/03/2023 12:00 AM EDT) Swab Cervical swab / Unknown us [facility] Celestina Nurse LAB CYTOLOGY ORDERABLES Final Result EXTERNAL LAB documented in this encounter Visit Diagnoses Not on filedocumented in this encounter Care Teams Superintendent Production Relationship Specialty Start Date End Date Thaddeus Alfredo MD [address] [place] [address] PCP - General Family Medicine 04/24/23 11/09/24 Consuelo Love NP [address] [address] Nurse Practitioner Neurology 11/10/24 Akil Cox DO [address] [place] [id number] Referring Physician Neurology 11/10/24 Manisha Marc NP [address] [place], [place] [address] Referring Physician Family Medicine 11/10/24 documented as of this encounter
--- OUTSIDE RECORDS SUMMARY | 2025-01-13 08:40 | XMS_ITS | Patient Health Record ---
Author Organization [facility] [place] Address [address] [place] [address] Care Team Providers Care Art Educator Name Role Phone Manisha Marc CNP Primary Care Provider U Aaron Willis Unavailable [phone] Tiffanie Villalobos Unavailable [phone] Allergies Allergen (clinical drug ingredient) Drug/Non Drug Allergy documented on EMR Reaction Allergy Type Onset Date Status amoxicillin Amoxicillin hives Drug Allergy Act rafal cefaclor Cefaclor hives Drug Allergy Active erythromycin Erythromycin Hives,Rash Drug Allergy Active Results Component Value Reference Range Notes FERRITIN (Not yet reviewed b y provider) Interpretation: Performing Lab: Notes/Report: [facility] , Ferritin 43.0 8.0-252.0 ng/mL Performing Lab: see note ML - [facility] LB IRON AND TIBC (Not yet revie wed by provider) Interpretation: Performing Lab: Notes/Report: [facility] , Iron 50.0 50.0-170.0 ug/dL Total Iron Binding Capacity 380.0 250.0-450.0 ug/dL Percent Iron Saturation 13.2 Performing Lab: see note ML - [facility] LB Erythrocyte Sedimentation Ra te (Not yet reviewed by provider) Interpretation: Performing Lab: Notes/Report: [facility] , Erythrocyte Sedimentation Rate 41 <=20 mm/hr Performing Lab: see note ML - [facility] YU and PE, Serum (Not yet r eviewed by provider) Interpretation: Performing Lab: Notes/Report: [facility] , Immunoglobulin G, Qn, Serum 6864 895-4650 mg/dL Immunoglobulin A, Qn, Serum 130 87-352 mg/dL Immunoglobulin M, Qn, Serum 148 26-217 mg/dL Protein, Total 6.7 6.0-8.5 g/dL Albumin 3.5 2.9-4.4 g/dL Iyatr-8-Bbxwxwoy 0.2 0.0-0.4 g/dL Cclod-4-Bjfapiyc 0.8 0.4-1.0 g/dL Beta Globulin 1.0 0.7-1.3 g/dL Gamma Globulin 1.1 0.4-1.8 g/dL M-Manpreet Not Observed Not Observed g/dL Globulin, Total 3.2 2.2-3.9 g/dL A/G Ratio 1.1 0.7-1.7 Immunofixation Result, Serum Comment . No monoclonality det ected. Please note: Comment . Performed at: [address] [id number] Protein electrophoresis scan will follow via computer, Cloth Mercerizer Operator: Cassius Zhong PhD, Phone: [phone] mail, or monologist delivery. Performing Lab: see note - [facility] LB Vitamin B12 (Not yet reviewe d by provider) Interpretation: Performing Lab: Notes/Report: [facility] , Vitamin B12 559 751-4656 pg/mL [address] [place] [id number] Performed at: [facility] Cloth Mercerizer Operator: Cassius Zhong PhD, Phone: [phone] Performing Lab: see note - [facility] LB CBC AUTO DIFF (Not yet revie wed by provider) Interpretation: Performing Lab: Notes/Report: [facility] , White Blood Count 9.2 4.0-11.0 10 3/uL Red Blood Count 4.47 4.20-5.40 10 6/uL Hemoglobin 13.7 12.0-16.0 g/dL Hematocrit 40.1 36.0-48.0 % Mean Corpuscular Volume 89.7 81.0-99.0 fL Mean Corpuscular Hemoglobin 30.6 26.7-34.0 pg Mean Corpuscular HGB Conc 34.2 29.9-35.2 g/dL Red Cell Distribution Width 13.3 11.0-15.0 % Platelet Count 224 150-450 10 3/uL Mean Platelet Volume 9.4 9.5-13.5 fL Neutrophils Percent Auto 61.8 43.0-75.0 % Lymphocytes Percent Auto 31.4 20.5-60.0 % Monocytes Percent Auto 4.1 1.7-12.0 % Eosinophils Percent Auto 1.9 0.9-7.0 % Basophils Percent Auto 0.5 0.2-2.0 % Immature Granulocytes Pct Auto 0.3 0.0-0.5 % Neutrophils Absolute Auto 5.7 1.4-6.5 10 3/uL Lymphocytes Absolute Auto 2.9 1.2-3.8 10 3/uL Monocytes Absolute Auto 0.4 0.3-0.8 10 3/uL Eosinophils Absolute Auto 0.2 0.0-0.7 10 3/uL Basophils Absolute Auto 0.1 0.0-0.1 10 3/uL Immature Granulocytes Abs Auto 0.03 0.00-0.03 10 3/uL Performing Lab: see note ML - [facility] LB FERRITIN (Not yet reviewed b y provider) Interpretation: Performing Lab: Notes/Report: [facility] , Ferritin 321.0 8.0-252.0 ng/mL Performing Lab: see note ML - [facility] LB IRON AND TIBC (Not yet revie wed by provider) Interpretation: Performing Lab: Notes/Report: [facility] , Iron 70.0 50.0-170.0 ug/dL Total Iron Binding Capacity 290.0 250.0-450.0 ug/dL Percent Iron Saturation 24.1 Performing Lab: see note ML - [facility] LB Erythrocyte Sedimentation Ra te (Not yet reviewed by provider) Interpretation: Performing Lab: Notes/Report: [facility] , Erythrocyte Sedimentation Rate 46 <=20 mm/hr Performing Lab: see note ML - [facility] LB Reticulocyte Pct Auto (Not y et reviewed by provider) Interpretation: Performing Lab: Notes/Report: [facility] , Reticulocyte Pct Auto 1.53 0.60-3.10 % Performing Lab: see note ML - [facility] LB Erythrocyte Sedimentation Ra te (Not yet reviewed by provider) Interpretation: Performing Lab: Notes/Report: [facility] , Erythrocyte Sedimentation Rate 31 <=20 mm/hr Performing Lab: see note ML - [facility] LB CBC AUTO DIFF (Not yet revie wed by provider) Interpretation: Performing Lab: Notes/Report: [facility] , White Blood Count 6.7 4.0-11.0 10 3/uL Red Blood Count 4.44 4.20-5.40 10 6/uL Hemoglobin 13.6 12.0-16.0 g/dL Hematocrit 41.5 36.0-48.0 % Mean Corpuscular Volume 93.5 81.0-99.0 fL Mean Corpuscular Hemoglobin 30.6 26.7-34.0 pg Mean Corpuscular HGB Conc 32.8 29.9-35.2 g/dL Red Cell Distribution Width 12.1 11.0-15.0 % Platelet Count 191 150-450 10 3/uL Mean Platelet Volume 9.5 9.5-13.5 fL Neutrophils Percent Auto 55.2 43.0-75.0 % Lymphocytes Percent Auto 37.0 20.5-60.0 % Monocytes Percent Auto 4.8 1.7-12.0 % Eosinophils Percent Auto 2.0 0.9-7.0 % Basophils Percent Auto 0.8 0.2-2.0 % Immature Granulocytes Pct Auto 0.2 0.0-0.5 % Neutrophils Absolute Auto 3.7 1.4-6.5 10 3/uL Lymphocytes Absolute Auto 2.5 1.2-3.8 10 3/uL Monocytes Absolute Auto 0.3 0.3-0.8 10 3/uL Eosinophils Absolute Auto 0.1 0.0-0.7 10 3/uL Basophils Absolute Auto 0.1 0.0-0.1 10 3/uL Immature Granulocytes Abs Auto 0.01 0.00-0.03 10 3/uL Performing Lab: see note ML - [facility] PROF CHEM 8 (BAS METB) (Not yet reviewed by provider) Interpretation: Performing Lab: Notes/Report: [facility] , Sodium 138 136-145 mmol/L Potassium 4.4 3.5-5.1 mmol/L Chloride 104 98-107 mmol/L Carbon Dioxide 26.8 21.0-32.0 mmol/L Anion Gap 11.6 Glucose 89 74-106 mg/dL Blood Urea Nitrogen 10.0 7.0-18.0 mg/dL Creatinine 0.73 0.55-1.02 mg/dL Estimated GFR ( Dolores >60 >=60 mL/min/1.73m 2 Estimated GFR (Non- Thania >60 >=60 mL/min/1.73m 2 BUN Creatinine Ratio 13.7 Calcium 9.0 8.5-10.1 mg/dL Performing Lab: see note ML - [facility] LB CRP (Not yet reviewed by pro vider) Interpretation: Performing Lab: Notes/Report: [facility] , C Reactive Protein 1.07 <=0.50 mg/dL Performing Lab: see note ML - [facility] LDH (Not yet reviewed by pro vider) Interpretation: Performing Lab: Notes/Report: [facility] , Lactate Dehydrogenase 202 81-234 U/L Performing Lab: see note ML - [facility] CRP (Not yet reviewed by pro vider) Interpretation: Performing Lab: Notes/Report: [facility] , C Reactive Protein 0.74 <=0.50 mg/dL Performing Lab: see note ML - [facility] LB CBC AUTO DIFF (Not yet revie wed by provider) Interpretation: Performing Lab: Notes/Report: [facility] , White Blood Count 11.3 4.0-11.0 10 3/uL Red Blood Count 4.49 4.20-5.40 10 6/uL Hemoglobin 12.3 12.0-16.0 g/dL Hematocrit 37.6 36.0-48.0 % Mean Corpuscular Volume 83.7 81.0-99.0 fL Mean Corpuscular Hemoglobin 27.4 26.7-34.0 pg Mean Corpuscular HGB Conc 32.7 29.9-35.2 g/dL Red Cell Distribution Width 15.9 11.0-15.0 % Platelet Count 259 150-450 10 3/uL Mean Platelet Volume 10.1 9.5-13.5 fL Neutrophils Percent Auto 67.2 43.0-75.0 % Lymphocytes Percent Auto 26.6 20.5-60.0 % Monocytes Percent Auto 4.1 1.7-12.0 % Eosinophils Percent Auto 1.4 0.9-7.0 % Basophils Percent Auto 0.4 0.2-2.0 % Immature Granulocytes Pct Auto 0.3 0.0-0.5 % Neutrophils Absolute Auto 7.6 1.4-6.5 10 3/uL Lymphocytes Absolute Auto 3.0 1.2-3.8 10 3/uL Monocytes Absolute Auto 0.5 0.3-0.8 10 3/uL Eosinophils Absolute Auto 0.2 0.0-0.7 10 3/uL Basophils Absolute Auto 0.1 0.0-0.1 10 3/uL Immature Granulocytes Abs Auto 0.03 0.00-0.03 10 3/uL Performing Lab: see note - [facility] YU, PE and FLC, Serum (Not yet reviewed by provider) Interpretation: Performing Lab: Notes/Report: [facility] , Immunoglobulin G, Qn, Serum 6443 839-6405 mg/dL Immunoglobulin A, Qn, Serum 122 87-352 mg/dL Immunoglobulin M, Qn, Serum 105 26-217 mg/dL Protein, Total 6.6 6.0-8.5 g/dL Albumin 3.4 2.9-4.4 g/dL Hkjim-3-Wkyjwwdl 0.2 0.0-0.4 g/dL Canoq-1-Uuwzkyqt 0.8 0.4-1.0 g/dL Beta Globulin 1.0 0.7-1.3 g/dL Gamma Globulin 1.1 0.4-1.8 g/dL M-Manpreet Not Observed Not Observed g/dL Globulin, Total 3.2 2.2-3.9 g/dL A/G Ratio 1.1 0.7-1.7 Immunofixation Result, Serum Comment . No monoclonality det ected. Please note: Comment . Protein electrophoresis scan will follow via computer, mail, or monologist delivery. Free [place] Lt Chains,S 18.1 3.3-19.4 mg/L Free Lambda Lt Chains,S 19.6 5.7-26.3 mg/L [place]/Lambda Ratio,S 0.92 0.26-1.65 Performed at: [facility] Lab[address] [id number] Cloth Mercerizer Operator: Cassius Zhong PhD, Phone: [phone] Performing Lab: see note - [facility] LB LDH (Not yet reviewed by pro vider) Interpretation: Performing Lab: Notes/Report: [facility] , Lactate Dehydrogenase 190 81-234 U/L Performing Lab: see note ML - [facility] IMMUNOGLOBULIN E, TOTAL (Not yet reviewed by provider) Interpretation: Performing Lab: Notes/Report: [facility] , Immunoglobulin E, Total 236 6-495 IU/mL [address] [place], [place] [id number] Cloth Mercerizer Operator: Jeanna Case MD, Phone: [phone] [facility]formed at: [facility] Performing Lab: see note - [facility] CRP (Not yet reviewed by pro vider) Interpretation: Performing Lab: Notes/Report: [facility] , C Reactive Protein 0.96 <=0.50 mg/dL Performing Lab: see note ML - [facility] Reason For Referral No Information Medications Medication SIG (Take, Route, Frequency, Duration) Notes Start Date End Date Status ARIPiprazole Active Methenamine Hippurate 1 GM 1 tablet Orally Twice a day for 30 days 09/03/2024 Active Pantoprazole Sodium Active metFORMIN HCl ER 500 MG Oral for 30 Days Active Meloxicam 15 MG Oral for 30 Days Not-Taking Lisinopril 10 MG Oral for 90 Days Active Baclofen 10 MG TAKE 1 TABLET BY MABEL TH THREE TIMES DAILY NEEDED Oral for 30 Days Not-Taki ng valACYclovir HCl 1 GM TAKE 1 TABLET BY M OUTH TWICE DAILY FOR 10 DAYS (MORNING AND BEFORE BED) Oral for 10 Days Active Albuterol Active Multi-Vitamin Active lamoTRIgine 25 MG Oral for 30 Days Active Gabapentin 300 MG Oral for 30 Days Not-Taking Myrbetriq 25 MG 1 tablet Orally Once a day for 30 days 01/04/2025 Active DULoxetine HCl 60 MG TAKE 2 CAPSULES BY MOUTH ONCE DAILY Oral for 90 Days Active Social History [...] monthly (1 point) Points 1 Interpretation Negative Problems Problem Type SNOMED Code ICD Code Onset Dates Problem Status W/U Status Risk Notes Problem Other chronic cystitis without hematuria (N30.20) Active confirmed Vital Signs Height 64 in 01/04/2025 Weight 338.4 lbs 01/04/2025 BMI 58.08 kg/m2 01/04/2025 Encounters Encounter Location Date Provider Diagnosis [facility] [address] [place] [address] 06/29/2024 Tiffanie [facility] [address] [place] [address] 10/12/[address] [address] 01/04/2025 Tiffanieyazmin Villalobos Urology [facility] [place] [address] [place] [address] 01/04/2025 Aaron Eastman Other chronic cystitis without hematuria N30.20 and Vaginal voiding N39.8 Urology [facility] [address] [place] [address] 09/03/2024 Aaron Eastman Other chronic cystitis without hematuria N30.[address] [address] 07/19/[address] [address] 07/26/2024 Tiffanie [facility] [address] [place] [address] 07/13/2024 Tiffanie Wilfredo Assessments Encounter Date Diagnosis (ICD Code) Assessment Notes Treatment Notes Treatment Clinical Notes Section Notes 09/03/2024 Other chronic cystitis without hematuria (ICD-10 - N30.20) 01/04/2025 Other chronic cystitis without hematuria (ICD-10 - N30.20) 01/04/2025 Vaginal voiding (ICD-10 - N39.8) 09/03/2024 Other Will start on Methenamine BID. See back in 3 months. Increase liquids. Ensure no constipation. 01/04/2025 Other Cont methenamine, this is working well. Suspect vaginal voiding. Plan Of Treatment Pending Test Test Name Order Date CBC AUTO DIFF 06/29/2024 CBC AUTO DIFF 10/12/2024 CBC AUTO DIFF 12/28/2024 CRP 10/12/2024 CRP 06/29/2024 CRP 12/28/2024 FERRITIN 06/29/2024 FERRITIN 10/12/2024 IMMUNOGLOBULIN E, TOTAL 12/28/2024 IRON AND TIBC 10/12/2024 IRON AND TIBC 06/29/2024 LDH 06/29/2024 LDH 12/28/2024 PROF CHEM 8 (BAS METB) 10/12/2024 Erythrocyte Sedimentation Rate Erythrocyte Sedimentation Rate Erythrocyte Sedimentation Rate YU, PE and FLC, Serum 12/28/2024 YU and PE, Serum 06/29/2024 Reticulocyte Pct Auto 12/28/2024 Vitamin B12 06/29/2024 Next Appt Details Provider Name:Tiffanie Villalobos , 06/07/2025 08:30:00 AM, [address] [place], [address], Provider Name:Aaron Eastman , 07/12/2025 10:30:00 AM, [address] [place], [address], Insurance Providers Payer Name Payer Address Payer Phone Subscriber Number Group Number Insured Name Patient Relationship to Insured Coverage Start Date Coverage End Date [employer] [place] [employer] [address] [place] [address] [id number] Ashly Mehta Self - patient is the insured Medical (General) History Medical History History ICD Code Arthritis seizures bipolar disorder asthma depression hypertension attention deficit hyperactivity disorder PCOS Surgical History Surgery Date(Month/Year) Endoscopy Colonoscopy L4-L5 back ablation Teeth removal dilatation and curettage, Hysteroscopy Laparoscopy Cholecystectomy Colposcopy- multiple
--- OUTSIDE RECORDS SUMMARY | 2025-01-13 08:40 | XMS_ITS | Encounter Summary ---
Author Organization [facility] Address [address] [place] [address] Care Team Providers Care Licensing Court Magistrate Name Role Phone House, hTaddeus Brown MD Primary Care Provider [phone] Consuelo Love CARPENTRY INSTRUCTOR Unavailable [phone] Akil Cox DO Unavailable [phone] Manisha Lopez CARPENTRY INSTRUCTOR Unavailable [phone] Encounter Details Date Type Department Care Team (Late st Contact Info) Description 08/20/2023 Clinisync Result Encounter [facility] External Department Unsolicited Teri Love PA [address] [place] [address] [place] [address] Social History Tobacco Use Types [...] AM EDT Office Visit SUSIE CLARKE [address] [facility] [address] [place] [address] Stephenie Cheney, [address] [place] [address] 11/09/2025 3:00 PM EDT Office Visit [facility] OB [address] [facility] [place] [address] Marko Oscar, DO [address] [facility] [place] [address] documented as of this encounter Procedures Procedure Name Priority Date/Time Associated Diagnosis Comments US BREAST RT COMPLETE 08/20/2023 1:41 PM EST documented in this encounter Results * US BREAST RT COMPLETE (08/20/2023 1:41 PM EST) Anatomical Region Laterality Modality Radiographic Miroslava ging 08/20/2023 1:41 PM EST Narrative 08/20/2023 1:42 PM EST [address] [address] Ultrasound Report Signed Patient: ASHLY PACK MR#: [id number] : 1990 Acct:[id number] Age/Sex: 32 / F ADM Date: 08/20/23 Loc: US Attending Dr: Teri Love Ordering Physician: Teri Love Date of Service: 08/20/23 Procedure(s): US breast RT complete Accession Number(s): [id number] cc: Teri Love; MANISHA LOPEZ Patient Name: ASHLY PACK MR#: [id number] : 1990 Exam Date: 08/20/2023 Ordering Doctor: LILIYA Love . RADIOLOGY REPORT PROCEDURE: US BREAST RT COMPLETE COMPARISON: None. INDICATIONS: breast pain right N64.4 TECHNIQUE: Breast ultrasound was performed, with evaluation focusing only on specific areas of concern. FINDINGS: Complete right breast ultrasound demonstrates normal fibroglandular tissue. No focal ultrasound lesion is observed. Further evaluation of patient's pain should be based on clinical and physical exam RECOMMENDATIONS: No ultrasound abnormality to correspond to the patient's pain PLEASE NOTE: A NORMAL ULTRASOUND EXAMINATION DOES NOT EXCLUDE THE POSSIBILITY OF BREAST CANCER. A CLINICALLY SUSPICIOUS PALPABLE LUMP SHOULD BE BIOPSIED. Dictated by: Raul Chew MD on 08/20/2023 at 13:39 Approved by: Raul Chew MD on 08/20/2023 at 13:41 Dictated By: Raul Chew M.D. Signed By: 08/20/23 1342 DD/ 1341 TD/TT: Lard Tub Washer: Procedure Note Radiology, Radiologist, MD - 08/21/2023 [place] [address] Ultrasound Report Signed Patient: ASHLY PACK KMR#: [id number] : 1990Acct:[id number] Age/Sex: 32 FADM Date: 08/20/23 Loc: US Attending Dr: Teri Love Ordering Physician: Teri Love Date of Service: 08/20/23 Procedure(s): US breast RT complete Accession Number(s): [id number] cc: Teri Love; MANISHA LOPEZ Patient Name: ASHLY PACK MR#: [id number] : 1990 Exam Date: 08/20/2023 Ordering Doctor: LILIYA Love . RADIOLOGY REPORT PROCEDURE: US BREAST RT COMPLETE COMPARISON: None. INDICATIONS: breast pain right N64.4 TECHNIQUE: Breast ultrasound was performed, with evaluation focusingonly on specific areas of concern. FINDINGS: Complete right breast ultrasound demonstrates normal fibroglandular tissue. No focal ultrasound lesion is observed. Further evaluation of patient's pain should be based on clinical and physical exam RECOMMENDATIONS: No ultrasound abnormality to correspond to thepatient's pain PLEASE NOTE: A NORMAL ULTRASOUND EXAMINATION DOES NOT EXCLUDE THEPOSSIBILITY OF BREAST CANCER. A CLINICALLY SUSPICIOUS PALPABLE LUMP SHOULD BEBIOPSIED. Dictated by: Raul Chew MD on 08/20/2023 at 13:39 Approved by: Raul Chew MD on 08/20/2023 at 13:41 Dictated By: Raul Chew M.D. Signed By:08/20/23 1342 DD/ 1341 TD/TT: Lard Tub Washer: us Teri LOVELL IMG XR PROCEDURES Final Result documented in this encounter Visit Diagnoses Not on filedocumented in this encounter Care Teams Licensing Court Magistrate Relationship Specialty Start Date End Date Thaddeus Alfredo MD [address] [place] [address] PCP - General Family Medicine 04/24/23 11/09/24 Consuelo Love NP [address] [address] Nurse Practitioner Neurology 11/10/24 Akil Cox DO [address] [address] Referring Physician Neurology 11/10/24 Manisha Lopez NP [address] [place] [address] Referring Physician Family Medicine 11/10/24 documented as of this encounter
--- OUTSIDE RECORDS SUMMARY | 2025-01-13 08:40 | XMS_ITS | Clinical Summary ---
Author Organization [facility] Address [address] [place] [address] Care Team Providers Care Intermediate Designer Name Role Phone Unavailable Primary Care Provider Unavailabl e Social History Tobacco Use Types Packs/Day Years Used Date Smoking Tobacco: Never Assessed Sex and Gender Information Value Date Recorded Sex Assigned at Not on file Gender Identity Not on file Sexual Orientation Not on file Plan of Treatment Not on file
--- OUTSIDE RECORDS SUMMARY | 2025-01-13 08:40 | XMS_ITS | Encounter Summary ---
Author Organization [facility] Address [address] [place] [address] Care Team Providers Care Data Warehouse Architect Name Role Phone Juni, Thaddeus Brown MD Primary Care Provider [phone] Consuelo Love DEHYDROGENATION OPERATOR Unavailable [phone] Akil Cox DO Unavailable [phone] Manisha Marc DEHYDROGENATION OPERATOR Unavailable [phone] Encounter Details Date Type Department Care Team (Late st Contact Info) Description 01/31/[address] [facility] [address] [place] [address] Marko Oscar DO [address] [facility] [address] [place], [place] [id number] Social History Tobacco Use Types Packs/Day Years [...] AM EDT Office Visit SUSIE CLARKE [address] [address] Stephenie Cheney DO [address] [place] [address] 11/09/2025 3:00 PM EDT Office Visit [facility] [address] [facility] [place] [address] Marok Oscar DO [address] [facility] [place] [address] documented as of this encounter Visit Diagnoses Not on filedocumented in this encounter Care Teams Data Warehouse Architect Relationship Specialty Start Date End Date Thaddeus Alfredo MD [address] [place] [address] PCP - General Family Medicine 04/24/23 11/09/24 Consuelo Love NP [address] [place] [address] Nurse Practitioner Neurology 11/10/24 Akil Cox DO [address] [address] Referring Physician Neurology 11/10/24 Manisha Marc NP [address] [facility] [address] [place] [address] Referring Physician Family Medicine 11/10/24 documented as of this encounter
--- OUTSIDE RECORDS SUMMARY | 2025-01-13 08:40 | XMS_ITS | Encounter Summary ---
Author Organization [facility] Address [address] [place] [address] Care Team Providers Care Clinical Specialist Vascular Name Role Phone Consuelo Love LUNCH TRUCK DRIVER Unavailable [phone] Akil Cox DO Unavailable [phone] Manisha Marc LUNCH TRUCK DRIVER Unavailable Encounter Details Date Type Department Care Team (Late st Contact Info) Description 01/06/2025 Abstract [facility] OB [address] [facility] [place] [address] Marko Oscar, DO [address] [facility] [address] [place] [address] Social History Tobacco Use Types Packs/Day [...] AM EDT Office Visit SUSIE CLARKE [address] [facility] [address] [place] [address] Stephenie Cheney DO [address] [place] [address] 11/09/2025 3:00 PM EDT Office Visit [facility] [address] [facility] [place] [address] Marko Oscar DO [address] [facility] [address] [place] [address] documented as of this encounter Visit Diagnoses Not on filedocumented in this encounter Care Teams Clinical Specialist Vascular Relationship Specialty Start Date End Date Consuelo Love NP [address] [place] [address] Nurse Practitioner Neurology 11/10/24 Akil Cox DO [address] [place], [place] [address], [place] [address] Referring Physician Neurology 11/10/24 Manisha Marc NP [address] [facility] [address] [place], [place] [address] Referring Physician Family Medicine 11/10/24 documented as of this encounter
--- OUTSIDE RECORDS SUMMARY | 2025-01-13 08:40 | XMS_ITS | Encounter Summary ---
Author Organization [facility] Address [address] [place] [address] Care Team Providers Care Saddle Lining Stitcher Name Role Phone House, Thaddeus Brown MD Primary Care Provider [phone] Consuelo Love VACUUM EXTRACTOR OPERATOR Unavailable [phone] Akil Cox DO Unavailable [phone] Manisha Marc VACUUM EXTRACTOR OPERATOR Unavailable Encounter Details Date Type Department Care Team (Late st Contact Info) Description 03/11/2023 Abstract [facility] [address] [facility] [place] [address] Teri Love PA [address] [facility] [place] [address] Social History Tobacco Use Types Packs/Day [...] AM EDT Office Visit SUSIE CLARKE [address] [facility] [address] [place] [address] Stephenie Cheney DO [address] [place] [address] 11/09/2025 3:00 PM EDT Office Visit [facility] [address] [facility] [place] [address] Marko Oscar DO [address] [facility] [address] [place] [address] documented as of this encounter Visit Diagnoses Not on filedocumented in this encounter Care Teams Saddle Lining Stitcher Relationship Specialty Start Date End Date Thaddeus Alfredo MD [address] [place] [address] PCP - General Family Medicine 04/24/23 11/09/24 Consuelo Love NP [address] [address] Nurse Practitioner Neurology 11/10/24 Akil Cox DO [address] [address] Referring Physician Neurology 11/10/24 Manisha Marc NP [address] [facility] [address] [place], [place] [address] Referring Physician Family Medicine 11/10/24 documented as of this encounter
--- OUTSIDE RECORDS SUMMARY | 2025-01-13 08:40 | XMS_ITS | Encounter Summary ---
Author Organization [facility] Address [address] [place] [address] Care Team Providers Care Head Boys Tennis Coach Name Role Phone House, Thaddeus Brown MD Primary Care Provider [phone] Consuelo Love MOTOR TEACHER Unavailable [phone] Akil Cox DO Unavailable [phone] Manisha Marc MOTOR TEACHER Unavailable [phone] Encounter Details Date Type Department Care Team (Late st Contact Info) Description 10/23/2023 Abstract SUSIE P[facility]REZ [address] [place] [address] Consuelo Love NP [address] [place] [address] Social History Tobacco Use Types Packs/Day Years [...] AM EDT Office Visit SUSIE CLARKE [address] [place] [address] [place] [address] Stephenie Cheney, DO [address] [place] [address] 11/09/2025 3:00 PM EDT Office Visit [facility] [address] [facility] [place] [address] Marko Oscar DO [address] [facility] [address] [place] [address] documented as of this encounter Visit Diagnoses Not on filedocumented in this encounter Care Teams Head Boys Tennis Coach Relationship Specialty Start Date End Date Thaddeus Alfredo MD [address] [place] [address] PCP - General Family Medicine 04/24/23 11/09/24 Consuelo Love NP [address] [address] Nurse Practitioner Neurology 11/10/24 Akil Cox DO [address] [id number] Referring Physician Neurology 11/10/24 Manisha Marc NP [address] [facility] [address] [place], [place] [address] Referring Physician Family Medicine 11/10/24 documented as of this encounter
--- OUTSIDE RECORDS SUMMARY | 2025-01-13 08:40 | XMS_ITS | Clinical Summary ---
Author Organization [facility] Address [address] [place] [address] Care Team Providers Care Mixer And Blender Name Role Phone House Sr., Thaddeus RAMOS Primary Care Provider + Allergies Active Allergy Reactions Criticality Noted Date Comments Amoxicillin 07/08/2016 Cefaclor Hives 04/14/2015 Erythromycin Rash Low 04/14/2015 Medications albuterol (PROVENTIL HFA;VENTOLIN HFA) 108 (90 BASE) MCG/ACT inhaler Inhale 2 puffs into the lungs every 6 hours as needed for Wheezing Active omeprazole (PRILOSEC) 20 MG capsule Take 20 mg by mouth daily Active ibuprofen (ADVIL;MOTRIN) 600 MG tablet Take 1 tablet by mouth 3 times daily (with meals) for 7 days 20 tablet 11/12/2016 Active Family History Medical History Relation Name Comments Asthma Mother Depression Sister 1 Other Sister 1 PTSD, Personali ty disorder, Other Sister 2 heart murmur Other Sister 3 Ausbergers Relation Name Status Comments Father Alive Mother Alive Sister 1 Alive Sister 2 Alive Sister 3 Alive Social History Tobacco Use Types Packs/Day Years [...] on file Sexual Orientation Not on file Last Filed Vital Signs Vital Sign Reading Time Taken Comments Blood Pressure 131/91 11/12/2016 4:41 AM EDT Pulse 70 11/12/2016 4:41 AM EDT Temperature 36 C (96.8 F) 11/12/2016 4:41 AM EDT Respiratory Rate 18 11/12/2016 4:41 AM EDT Oxygen Saturation 98% 11/12/2016 4:41 AM EDT Inhaled Oxygen Concentration - - Weight 130.2 kg (287 lb) 11/12/2016 4:41 AM EDT Height 165.1 cm (5' 5 ) 11/12/2016 4:41 AM EDT Body Mass Index 47.76 11/12/2016 4:41 AM EDT Plan of Treatment Not on file Insurance [facility] Care Teams Mixer And Blender Relationship Specialty Start Date End Date Thaddeus Alfredo Sr., [address] [place] [address] PCP - General 05/06/16
--- OUTSIDE RECORDS SUMMARY | 2025-01-13 08:40 | XMS_ITS | Clinical Summary ---
Author Organization [id number] [address] [place] [address] Care Team Providers Care Senior Corporate Strategy Manager Name Role Phone Manisha Marc Primary Care Provid er Allergies Active Allergy Reactions Criticality Noted Date Comments Amoxicillin 02/06/2017 Cefaclor 02/06/2017 Erythropoietin Analogues 02/06/2017 Medications albuterol (PROVENTIL HFA;VENTOLIN HFA) 90 mcg/actuation inhaler Inhale 2 puffs every 6 (six) hours as needed for wheezing. Active metoprolol tartrate (LOPRESSOR) 50 mg tablet Take 50 mg by mouth daily. Active metFORMIN (GLUCOPHAGE) 500 mg tablet Take 1 tablet by mouth 2 (two) times a day with meals. PCOS Active DULoxetine (CYMBALTA) 60 mg capsule Take 90 mg by mouth daily. Active phentermine (ADIPEX-P) 37.5 mg tablet Take 37.5 mg by mouth every morning before breakfast. Active multivit-minerals /folic acid (ADULT ONE DAILY MULTIVITAMIN ORAL) Take by mouth. Active melatonin 2.5 mg tablet,chewable Chew and swallow. Active valACYclovir (VALTREX) 1000 mg tablet Take 1,000 mg by mouth 2 (two) times a day. Active lisinopriL (PRINIVIL,ZESTRIL ) 20 mg tablet Take 20 mg by mouth daily. Active citalopram (CeleXA) 20 mg tablet Take 20 mg by mouth daily. Active Active Problems Problem Noted Date Diagnosed Date Recurrent urinary tract infection 06/03/2018 Overview (06/03/2018): ==== 06/03/2018 ==== several year history of recurrent urinary tract infections and heralded by urgency frequency dysuria. Sometimes some incontinence. No documented fevers. No gross hematuria. Persistent microscopic hematuria per primary care note. Plan: Evaluate lower urinary tract cystoscopy. Potential retrograde pyelogram. CT urogram cytology. [facility] bladder solution Hematuria, microscopic 06/03/2018 Overview (06/03/2018): See elsewhere Family History Medical History Relation Name Comments Arthritis Father Asthma Mother Depression Mother Mental illness Mother Miscarriages / Stillbirths Mother Asthma Sister Autism Sister Depression Sister Learning disabilities Sister Mental illness Sister Relation Name Status Comments Father Mother Sister Social History Tobacco Use Types Packs/Day Years Used Date Smoking Tobacco: Passive Smo ke Exposure - Never Smoker Smokeless Tobacco: Never Alcohol Use Standard Drinks/Week Comments Yes 0 (1 standard drink = 0.6 oz pur e alcohol) once a year AUDIT-C Answer Date Recorded Frequency of Alcohol Consumption Never 03/03/2020 Average Number of Drinks Not on file 020 Frequency of Binge Drinking Not on file 02/15 Childcare Answer Date Recorded Childcare Unknown 01/27/2019 Employment Answer Date Recorded Employment Unknown 01/27/2019 Hunger Screening Answer Date Recorded Within the past 12 months we worried whether our food would run out before we got money to buy more. Never True 04/14/2024 Within the past 12 months th e food we bought just didn't last and we didn't have money to get more. Never True 04/14/2024 Purpose - Life Answer Date Recorded Purpose and direction in life Unknown Comments Unknown Sex and Gender Information Value Date Recorded Sex Assigned at Not on file Legal Sex Female 11:48 AM EDT Gender Identity Not on file Sexual Orientation Not on file Last Filed Vital Signs Vital Sign Reading Time Taken Comments Blood Pressure 174/89 04/14/2024 11:26 PM EDT Pulse 91 04/14/2024 11:26 PM EDT Temperature 36.9 C (98.4 F) 04/14/2024 11:26 PM EDT Respiratory Rate 16 04/14/2024 11:26 PM EDT Oxygen Saturation 95% 04/14/2024 11:26 PM EDT Inhaled Oxygen Concentration - - Weight 149.7 kg (330 lb) 04/14/2024 11:26 PM EDT Height 162.6 cm (5' 4 ) 04/14/2024 11:26 PM EDT Body Mass Index 56.64 04/14/2024 11:26 PM EDT Plan of Treatment Health Maintenance Due Date Last Done Comments Depression Screening 2003 Adult BMI Follow Up Plan 2009 DTaP,Tdap and Td Vaccines (1 - Tdap) 2010 COVID-19 Vaccine (3 - season) 2024, 02/10/2021 Adult BMI Screening 04/14/2025 04/14/2024 Tobacco Screening 04/14/2025 04/14/2024 Influenza Vaccine 04/18/2025 Pap Smear 11/02/2026 11/03/2023, 10/28/2022 Medical Devices Not on file Insurance MEDICAID [facility] MEDICAID Care Teams Senior Corporate Strategy Manager Relationship Specialty Start Date End Date Manisha Marc APRN-NP [address] [place] [address] PCP - General Nurse Practitioner 04/14/24
--- OUTSIDE RECORDS SUMMARY | 2025-01-13 08:40 | XMS_ITS | Encounter Summary ---
Author Organization [facility] Address [address] [place] [address] Care Team Providers Care Outboard System Operator Name Role Phone House, Thaddeus Brown MD Primary Care Provider Consuelo Love UTILIZATION SUPERVISOR Unavailable [phone] Akil Cox DO Unavailable Manisha Marc UTILIZATION SUPERVISOR Unavailable Encounter Details Date Type Department Care Team (Late st Contact Info) Description 02/13/2023 Abstract [facility] OB [address] [place] [address] Marko Oscar DO [address] [facility] [address] [place], [place] [address] Social History Tobacco Use Types Packs/Day Years [...] AM EDT Office Visit SUSIE CLARKE [address] [address] Stephenie Cheney DO [address] [place] [address] 11/09/2025 3:00 PM EDT Office Visit [facility] [address] [facility] [place] [address] Marko Oscar DO [address] [facility] [place] [address] documented as of this encounter Visit Diagnoses Not on filedocumented in this encounter Care Teams Outboard System Operator Relationship Specialty Start Date End Date Thaddeus Alfredo MD [address] [place] [address] PCP - General Family Medicine 04/24/23 11/09/24 Consuelo Love NP [address] [place] [address] Nurse Practitioner Neurology 11/10/24 Akil Cox DO [address] [address] Referring Physician Neurology 11/10/24 Manisha Marc NP [address] [facility] [address] [place], [place] [address] Referring Physician Family Medicine 11/10/24 documented as of this encounter
--- OUTSIDE RECORDS SUMMARY | 2025-01-13 08:40 | XMS_ITS | Clinical Summary ---
Author Organization [facility] Address [address] [place] [address] Care Team Providers Care Kosher Sealer Name Role Phone IvanMarcioah BUFFERER Unavailable [phone] Akil Cox DO Unavailable [phone] Manisha Marc BUFFERER Unavailable [phone] Allergies Active Allergy Reactions Criticality Noted Date Comments Amoxicillin Hives 07/08/2016 Other Reaction(s): Rash Cefaclor Hives 04/14/2015 Cephalosporins 11/26/2023 Other Reaction(s): Rash Erythromycin Hives,Rash Low 04/14/2015 Erythromycin Base 11/26/2023 Other Reaction(s): Hives Medications DULoxetine (Cymbalta) [address] capsule Take 90 mg by mouth in the morning. Active gabapentin (Neurontin) 300 MG capsule Take by mouth. Acti ve Multiple Vitamins-Minera ls (MULTI COMPLETE PO) Multi Complete Ac tive albuterol HFA 90 mcg/act inhaler Inhale 2 puffs every 6 (six) hours if needed. Active lisinopril 10 MG tablet Take 10 mg by mouth Daily 3 Active Melatonin 2.5 MG chewable tablet Chew Active lamoTRIgine (LaMICtal) 25 MG tablet take 1 tablet by mouth IN THE MORNING and 2 tablet by mouth IN TH... (REFER TO PRESCRIPTION NOTES). 4 Active metFORMIN XR (Glucophage-XR) 500 MG 24 hr tabletIndicatio ns:PCOS (polycystic ovarian syndrome) Take 2 tablets (1,000 mg) by mouth in the evening. Take with meals Do not crush, chew, or split. 60 tablet 11 4 04/01/20 25 Active baclofen (Lioresal) 10 MG tablet Take 10 mg by mouth in the morning and 10 mg in the evening and 10 mg before bedtime. Active meloxicam (Mobic) 15 MG tablet Take 15 mg by mouth Daily Active methenamine hippurate (Hiprex) 1 g tablet Take 1 g by mouth in the morning and 1 g before bedtime. Active pantoprazole (ProtoNix) 40 MG EC tablet Take 40 mg by mouth Daily 5 Active valACYclovir (Valtrex) 500 MG tablet Take 500 mg by mouth Daily Active Active Problems Problem Noted Date Diagnosed Date Neuropathy 05/31/2024 Carpal tunnel syndrome of right wrist 05/31/2024 Paresthesia of skin 05/31/2024 Seizure disorder 05/31/2024 Overview (05/31/2024): It is my impression that the patient has a seizure disorder. The etiology of this is unclear, but the patient tells me it was initially diagnosed in childhood. MRI of the brain on 10/08/23 revealed no epileptogenic focus, and routine EEG on 10/08/23 was normal. The patient previously took Keppra but tells me this was discontinued in summer 2018 due to being seizure-free for a prolonged period of time. She mentions some breakthrough seizures, most recently in July 2023 and August 2023, which were precipitated by significant stress. Semiology appears to be staring episodes, and she reports some postictal confusion. I cannot exclude the possibility of psychogenic nonepileptic events given the patient's psychiatric history and stress being a precipitant of the events. PLAN: - 2-hr EEG to assess for seizure or underlying epileptiform activity - Lamictal 25 mg tablet. I advised the patient to take 1 tablet by mouth daily in the morning and 2 tablets by mouth daily in the evening for 2 weeks. If well tolerated without side effects, I advised the patient to increase the dose to 2 tablets by mouth twice a day after 2 weeks. Side effects including SJS discussed. The patient verbalizes understanding and wishes to proceed. She understands to seek emergent care should she develop a rash while taking this medication - Medication compliance encouraged - SUDEP discussed - Continue to follow closely with psychiatry - The patient was counseled on seizure precautions including no driving, no swimming/tub bathing alone, no swimming in dark jensen, no working at heights, and no operating heavy machinery until 4 to 6 months episode-free and cleared by neurology. She verbalized understanding and states she will comply Bipolar affective disorder 05/31/2024 Overview (05/31/2024): Important comorbid condition which influences treatment options. Lamotrigine may provide benefit for seizure prevention and Bipolar disorder. PLAN: - The patient will discuss our choice of Lamictal with her psychiatrist. Abnormal uterine bleeding 02/11/2023 Abnormal weight gain 02/11/2023 Disorder of endocrine system 02/11/2023 Essential hypertension 02/11/2023 Herpes simplex of female genitalia 02/11/2023 Menorrhagia 02/11/2023 Morbid obesity 02/11/2023 Pain in female genitalia on intercourse 02/12/20 23 Polycystic ovaries 02/11/2023 Secondary amenorrhea 02/11/2023 Anemia 02/11/2023 Hematuria, microscopic 06/03/2018 Overview (03/18/2023): Overview: See elsewhere See elsewhere Recurrent urinary tract infection 06/03/2018 Overview (03/18/2023): Overview: ==== 06/03/2018 ==== several year history of recurrent urinary tract infections and heralded by urgency frequency dysuria. Sometimes some incontinence. No documented fevers. No gross hematuria. Persistent microscopic hematuria per primary care note. Plan: Evaluate lower urinary tract cystoscopy. Potential retrograde pyelogram. CT urogram cytology. [facility] bladder solution ==== 06/03/2018 ==== several year history of recurrent urinary tract infections and heralded by urgency frequency dysuria. Sometimes some incontinence. No documented fevers. No gross hematuria. Persistent microscopic hematuria per primary care note. Plan: Evaluate lower urinary tract cystoscopy. Potential retrograde pyelogram. CT urogram cytology. [facility] bladder solution Encounters Date Type Department Care Team Description 01/06/2025 Abstract [facility] [place] [address] [place] [address] Marko Oscar DO 11/30/2024 1:00 PM EDT Ancillary Procedure [facility] [place] [address] [place] [address] PCOS (polycystic ovarian syndrome) 11/30/2024 Travel 11/23/2024 Telephone [facility] [place] [address] [place] [address] Shilpa Snider MA 11/10/2024 9:00 AM EDT Office Visit [facility] [place] [address] [place] [address] Consuelo Love NP Cognitive dysfunction (Primary Dx); ALEXX (obstructive sleep apnea); Attention deficit hyperactivity disorder (ADHD), unspecified ADHD type (CMS/HCC); Severe anxiety; Severe episode of recurrent major depressive disorder, without psychotic features (HCC) (CMS/HCC); Bipolar affective disorder, remission status unspecified (CMS/HCC); Episodic migraine (CMS/HCC) 11/10/2024 Bamboo flowsheet [facility] [address] [place] [address] Consuelo Love NP 11/05/2024 Telephone [facility] [place] [address] [place] [address] Shilpa Snider MA 11/03/2024 3:20 PM EDT Office Visit [facility] [place] [address] [place] [address] Marko Oscar DO Well woman exam with routine gynecological exam; Exposure to STD; Vaginal discharge; Missed menses; PCOS (polycystic ovarian syndrome); Vaginal itching 11/03/2024 Clinisync Result Encounter [facility] External Department Unsolicited Marko Oscar DO 11/03/2024 External Result Encounter [facility] External Department Unsolicited Marko Oscar DO 11/03/2024 Bamboo flowsheet [facility] [address] [place] [address] Marko Oscar DO 10/18/2024 Abstract [facility] [address] [place] [place] [address] Marko Oscar DO from Last 3 Months Family History Medical History Relation Name Comments Atrial fibrillation Mother COPD Mother Cancer Mother Heart disease Mother Hypertension Mother Mental illness Mother Migraines Mother Stroke Mother Asthma Sister Depression Sister Mental illness Sister Migraines Sister Relation Name Status Comments Father Alive Mother Alive Sister 2 Social History Tobacco Use Types Packs/Day Years Used Date Smoking Tobacco: Never Tobacco Cessation:Counseling Given: Not Answered Alcohol Use Standard Drinks/Week Comments Not Asked 0 (1 standard drink = 0.6 oz pur e alcohol) Comments No Sex and Gender Information Value Date Recorded Sex Assigned at Female 03/11/2023 3:54 PM EDT Legal Sex Female 6:38 PM EDT Gender Identity Female 03/11/2023 3:54 PM EDT Sexual Orientation Don't know 03/11/2023 3: 54 PM EDT Last Filed Vital Signs Vital Sign Reading Time Taken Comments Blood Pressure 118/82 11/10/2024 8:56 AM EDT Pulse 82 08/16/2024 11:40 AM EST Temperature - - Respiratory Rate - - Oxygen Saturation 93% 08/16/2024 11:40 AM EST Inhaled Oxygen Concentration - - Weight 152 kg (336 lb) 11/10/2024 8:56 AM EDT Height 162.6 cm (5' 4 ) 11/10/2024 8:56 AM EDT Body Mass Index 57.67 11/10/2024 8:56 AM EDT Plan of Treatment Upcoming Encounters Date Type Department Care Team (Late st Contact Info) Description 03/29/2025 9:00 AM EDT Office Visit [facility]IE CLARKE [address] [place] [address] [place] [phone] Stephenie Cheney DO [address] [place] [address] 11/09/2025 3:00 PM EDT Office Visit [facility] [address] [place] [address] Marko Oscar, DO [address] [place] [address] Health Maintenance Due Date Last Done Comments Influenza Vaccine (Season Ended) 2025 Pap Smear 11/02/2026 11/03/2023, 10/16, 10/24/2021 Cervical Cancer Screening 10/29/2027 HPV/Cotest 10/29/2027 Procedures Procedure Name Priority Date/Time Associated Diagnosis Comments US PELVIC COMPLETE W/ TV Routine 11/30/2024 1:21 PM EDT PCOS (polycystic ovarian syndrome) RECURRENT VAGINITIS (HTRX) Routine 11/03/2024 4:28 PM EDT POCT , URINE Routine 11/03/2024 4:07 PM EDT Missed menses IGP,APTIMA HPV,AGE GDLN Routine 11/03/2024 3:39 PM EDT PAP SMEAR Routine 11/03/2023 12:00 AM EDT from Last 3 Months or Most Recently Relevant to Health Maintenance Results * US Pelvis w/ TV (11/30/2024 1:21 PM EDT) Anatomical Region Laterality Modality Pelvis Ultrasound 12/01/2024 12:0 5 AM EDT Narrative 12/01/2024 12:05 AM EDT EXAM: US PELVIC COMPLETE W/ TV HISTORY: [...] II, MD, PHD at 01-Dec-2024 12:04:08 AM [facility] Procedure Note Jacqueline Yuen MD - 12/01/2024 EXAM: US PELVIC COMPLETE W/ TV HISTORY: PCOS. COMPARISON: None available. TECHNIQUE: Two-dimensional transabdominal grayscale ultrasound imaging ofthe pelvis was performed. Color flow Doppler imaging of the ovaries wasalso performed. Transvaginal was performed. FINDINGS: UTERUS 7.2 x 3.1 x 5.6 cm The uterus is anteverted in position and demonstrates a normal,homogeneous echotexture. Multiple nabothian cysts are visualized withinthe cervix. ENDOMETRIUM 0.5 cm The endometrium demonstrates a normal, homogeneous echotexture. RIGHT OVARY 4.2 x 2.4 x 2.6 cm The right ovary demonstrates a normal echotexture. The ovarian volume is14 mL. There is normal color Doppler flow. There is a 2.4 cm dominantfollicle visualized. LEFT OVARY 4.6 x 2.7 x 3.8 cm The left ovary demonstrates a normal echotexture. The ovarian volume is25 mL. There is normal color Doppler flow. There is a 3.5 cm simple cystvisualized. No fluid is present within the cul-de-sac. IMPRESSION: 1. Simple left ovarian cyst. 2. Normal color Doppler flow within the bilateral ovaries. Interpreted by: Electronically signed by JACQUELINE YUEN II, MD, PHD [id number] 12:04:08 AM [facility] us Marko Celestina DO [facility] US PROCEDURES Final Result * (ABNORMAL) RECURRENT VAGINITIS (HTRX) (11/03/2024 4:28 PM EDT) [facility] ATOPOBIUM VAGINAE 0.000 19.961 - 24.689 ppm 11/05/2024 6:29 AM EDT [facility] ATOPOBIUM VAGINAE Not Detected 19.961 - 24.689 ppm 11/05/2024 6:29 AM EDT [facility] BVAB 2,3 (BACTERIAL VAGINOSIS ASSOCIATED BACTERIA 2, 3); MOBILUNCUS SPP 0.000 19.961 - 24.689 ppm 11/05/2024 6:29 AM EDT [facility] BVAB 2,3 (BACTERIAL VAGINOSIS ASSOCIATED BACTERIA 2, 3); MOBILUNCUS SPP Not Detected 19.961 - 24.689 ppm 11/05/2024 6:29 AM EDT [facility] AMY ALBICANS, PARAPSILOSIS, TROPICALIS 0.000 19.961 - 30.770 ppm 11/05/2024 6:29 AM EDT [facility] AMY ALBICANS, PARAPSILOSIS, TROPICALIS Not Detected 19.961 - 30.770 ppm 11/05/2024 6:29 AM EDT [facility] AMY GLABRATA 0.000 23.000 - 32.138 ppm 11/05/2024 6:29 AM EDT [facility] AMY GLABRATA Not Detected 23.000 - 32.138 ppm 11/05/2024 6:29 AM EDT [facility] AMY KRUSEI 0.000 23.000 - 32.271 ppm 11/05/2024 6:29 AM EDT [facility] AMY KRUSEI Not Detected 23.000 - 32.271 ppm 11/05/2024 6:29 AM EDT [facility] CHLAMYDIA TRACHOMATIS 0.000 23.000 - 31.467 ppm 11/05/2024 6:29 AM EDT [facility] CHLAMYDIA TRACHOMATIS Not Detected 23.000 - 31.467 ppm 11/05/2024 6:29 AM EDT [facility] GARDNERELLA VAGINALIS 30.951(A) 19.961 - 24.689 ppm 11/05/2024 6:29 AM EDT [facility] GARDNERELLA VAGINALIS Detected(A) 19.961 - 24.689 ppm 11/05/2024 6:29 AM EDT [facility] MEGASPHAERA (TYPES 1, 2) 0.000 19.961 - 24.689 ppm 11/05/2024 6:29 AM EDT [facility] MEGASPHAERA (TYPES 1, 2) Not Detected 19.961 - 24.689 ppm 11/05/2024 6:29 AM EDT [facility] NEISSERIA GONORRHOEAE 0.000 23.000 - 32.117 ppm 11/05/2024 6:29 AM EDT [facility] NEISSERIA GONORRHOEAE Not Detected 23.000 - 32.117 ppm 11/05/2024 6:29 AM EDT [facility] TRICHOMONAS VAGINALIS 0.000 23.000 - 32.119 ppm 11/05/2024 6:29 AM EDT [facility] TRICHOMONAS VAGINALIS Not Detected 23.000 - 32.119 ppm 11/05/2024 6:29 AM EDT [facility] MYCOPLASMA GENITALIUM 0.000 19.961 - 24.689 ppm 11/05/2024 6:29 AM EDT [facility] MYCOPLASMA GENITALIUM Not Detected 19.961 - 24.689 ppm 11/05/2024 6:29 AM EDT [facility] ERMB, C; MEFA 26.408(A) 23.000 - 27.611 ppm 11/05/2024 6:29 AM EDT [facility] ERMB, C; MEFA Detected(A) 23.000 - 27.611 ppm 11/05/2024 6:29 AM EDT [facility] TET B, TET M 23.734(A) 23.000 - 27.778 ppm 11/05/2024 6:29 AM EDT [facility] TET B, TET M Detected(A) 23.000 - 27.778 ppm 11/05/2024 6:29 AM EDT [facility] Tissue 11/03/2024 4:28 PM EDT 11/05/2024 1:43 AM EDT Time[employer] DO LAB BLOOD ORDERABLES Final Resul t [facility] [address] [place] [address] * POCT , urine manually resulted (11/03/2024 4:07 PM EDT) Preg Test, Ur Negative Negative Urine 11/03/2024 4:07 PM EDT [employer] DO POINT OF CARE TEST ENTER/EDIT OR DERABLES Final Result * IGP,APTIMA HPV,AGE GDLN (11/03/2024 3:39 PM EDT) Pathologist [facility] AGE GDLN ACOG TESTING Note . [facility] Comment: TESTS RESULT FLAG UNITS REF RANGE LAB Clinician Provided Cytology Information Source.............Cervix;Endocervix No. of containers..01 ThinPrep Vial Age Algo ACOG Elise... 30-65 01 FLAG LEGEND: L-Low Normal,H-High Normal,LL-Alert Low,HH-Alert High <-Panic Low,>-Panic High,A-Abnormal,AA-Critical Abnormal Performed at: 01 =G [facility] [address] [facility] [place] [address] Monse Cardona MD, IGP, APTIMA HPV, RFX 16/18,45 Note . [facility] Comment: TESTS RESULT FLAG UNITS REF RANGE LAB DIAGNOSIS: 02 NEGATIVE FOR INTRAEPITHELIAL LESION OR MALIGNANCY. Specimen adequacy: 02 Satisfactory for evaluation. Endocervical and/or squamous metaplastic cells (endocervical component) are present. Performed by: Mikhail Garces, Ex Assistant/Program Director (ASCP) . 02 Note: Note 02 The Pap smear is a screening test designed to aid in the detection of premalignant and malignant conditions of the uterine cervix. It is not a diagnostic procedure and should not be used as the sole means of detecting cervical cancer. Both false-positive and false-negative reports do occur. Test Methodology: Note 02 This liquid based ThinPrep(R) pap test was screened with the use of an image guided system. HPV Genotype Reflex Note 02 Criteria not met, HPV Genotype not performed. FLAG LEGEND: L-Low Normal,H-High Normal,LL-Alert Low,HH-Alert High <-Panic Low,>-Panic High,A-Abnormal,AA-Critical Abnormal Performed at: [address] [phone] Monse Cardona MD, HPV APTIMA Negative Negative [facility] Comment: This nucleic acid amplification test detects fourteen high- risk HPV types (16,18,31,33,35,39,45,51,52,56,58,59,66,68) without differentiation. Performed at: = - [facility] [id number] Cat Scan Technologist: Monse Cardona MD, Phone: [phone] Performed at: [address] [id number] Cat Scan Technologist: Monse Cardona MD, Phone: [phone] 11/03/2024 3:39 PM EDT 11/03/2024 6:16 PM EDT Narrative [facility] - 11/08/2024 8:08 AM EDT BRUSH-SPATULA CERVIX ENDOCERVIX us Marko Oscar DO LAB BLOOD ORDERABLES Final Resul t Performing Organization Address [facility] Co de Phone Number [facility] * Pap Smear (11/03/2023 12:00 AM EDT) Swab Cervical swab / Unknown [facility] Michael Oscar Nurse LAB CYTOLOGY ORDERABLES Final Result Performing Organization Address City/[facility] Co de Phone Number EXTERNAL LAB from Last 3 Months or Most Recently Relevant to Health Maintenance Insurance MEDICAID Care Teams Kosher Sealer Relationship Specialty Start Date End Date Consuelo Love NP [address] [address] Nurse Practitioner Neurology 11/10/24 Akil Cox DO [address] [address] Referring Physician Neurology 11/10/24 Manisha Marc NP [facility] [facility] [address] Referring Physician Family Medicine 11/10/24
== END 2025-01-13 08:37 | disposition home or self-care (01) ==
PROVIDERS: PCP Nurse Practitioner Family; Visit Provider Nurse Practitioner
DX: M48.062 Spinal stenosis, lumbar region with neurogenic claudication (principal); M51.369 Other intervertebral disc degeneration, lumbar region without mention of lumbar back pain or lower extremity pain; M54.16 Radiculopathy, lumbar region; M70.60 Trochanteric bursitis, unspecified hip; M79.18 Myalgia, other site; M50.30 Other cervical disc degeneration, unspecified cervical region; M47.812 Spondylosis without myelopathy or radiculopathy, cervical region
CPT/HCPCS: G0463

== ENCOUNTER 2025-01-24 07:56 | Day surgery (SDC) | payer OTHER, SELFPAY ==
--- OUTSIDE RECORDS SUMMARY | 2016-05-03 14:30 | XMS_ITS | Encounter Summary ---
Author Organization [facility] Address [address] [place] [address] Care Team Providers Care Roller Shop Supervisor Name Role Phone Desi Rg APRN, CNP Primary Care Provide r Encounter Details Date Type Department Care Team (Late st Contact Info) Description 05/03/2016 2:30 PM EDT Hospital Encounter [facility] [address] [place] [address] Desi Rg APRN - CNP [address] [place] [address] Chris Williamson PTA Social History Tobacco Use [...] Chris Williamson - 05/03/2016 4:57 PM EDT [facility] Outpatient Physical Therapy Daily Note Patient: Ashly Mehta : 1990 Referring Practitioner: Referral Date : 04/26/16 Date: 05/03/2016 Referral Date : 04/26/16 Diagnosis: L ankle pain/sprain Treatment Diagnosis: Difficulty walking Onset Date: 04/17/16 PT Insurance Information: [facility] Total # of Visits Approved: 12 Per Physician Order Total # of Visits to Date: 2 No Show: 0 Canceled Appointment: 0 Pre-Treatment Pain: 4/10 Subjective: Pt reports ankle still hurts been trying to walk more on it Exercises/Modalities/Manual: See DocFlow Sheet Assessment Assessment: Pt required encouragement to perform exercises, c/o pain with [place] AROM and BAPS withmost intense pain located [...] functional ROM without complaints of increased pain. Jail Goals - Time Frame for flight engineer performance qualified goals : 4 weeks custodial goal 1: Pt will be independent and compliant with her HEP custodial goal 2: Pt pain will be controlled and less than 2/10 in the L ankle to improve ability to ambulate with fluidity and efficiency. flight engineer performance qualified goal 3: Pt strength of L ankle will allow at least 10 single leg heel raises to indicate improved propulsion for gait. custodial goal 4: Pt strength will be 5/5 and pt will demonstrate good stability for RTW. Post Treatment Pain: 4/10 Time In: 1432 Time Out: 1527 Timed Code Treatment Minutes: 40 Minutes Total Treatment Time: 55 Minutes Chris Williamson Therapy License Number: REMOTE SENSING ADVISOR Date: 05/03/2016 Cosigned by Nely Tiwari PT at 05/06/2016 11:37 AM EDT documented in this encounter Plan of Treatment Not on file documented as of this encounter Visit Diagnoses Not on filedocumented in this encounter Care Teams Roller Shop Supervisor Relationship Specialty Start Date End Date Desi Rg APRN - RUBBER COMPOUNDER MIXER [address] [place], [place] [address] [address] PCP - General 05/01/16 05/05/16 documented as of this encounter
--- OUTSIDE RECORDS SUMMARY | 2016-05-27 13:15 | XMS_ITS | Encounter Summary ---
Author Organization [facility] Address [address] [place] [address] Care Team Providers Care Manager Animation Name Role Phone House Sr., Thaddeus RAMOS Primary Care Provider + Encounter Details Date Type Department Care Team (Late st Contact Info) Description 05/27/2016 1:15 PM EDT Hospital Encounter [facility] [address] [place] [phone] Desi Rg, SAND SCREENER OPERATOR - EXPLOSIVE EXPERT [address] [place] [address] Aaron Hanley Social History Tobacco Use Types [...] Tiwari, PT - 10/22/2016 11:53 AM EST [facility] Outpatient Physical Therapy Discharge Summary Patient: Ashly Mehta : 1990 Referring physician: Desi Rg NP Referring Practitioner: Desi Rg CNP Diagnosis: L ankle pain/sprain Date Treatment Initiated: 05/02/16 Date of Last Treatment: 05/27/16 PT Visit Information Onset Date: 04/17/16 PT Insurance Information: [facility] Total # of Visits Approved: 12 Total [...] ROM without complaints of increased pain. -progressing rn long term care goals Time Frame for rn long term care goals : 4 weeks rn long term care goal 1: Pt will be independent and compliant with her HEP senior care goal 2: Pt pain will be controlled and less than 2/10 in the L ankle to improve ability to ambulate with fluidity and efficiency. senior care goal 3: Pt strength of L ankle will allow at least 10 single leg heel raises to indicate improved propulsion for gait. rn long term care goal 4: Pt strength will be 5/5 and pt will demonstrate good stability for RTW. Reason for Discharge [] Goals Achieved [] Poor Follow Through/Attendance [] Optimal Function Achieved [x] Patient Discharged Self [] Hospitalization [] Physician discharge Thank you for this referral Nely Tiwari PT, DPT Date: 10/22/2016 documented in this encounter Progress Notes * Aaron Hanley - 05/27/2016 2:32 PM EDT [facility] Outpatient Physical Therapy Daily Note Patient: Ashly Mehta : 1990 Referring Practitioner: Desi Rg CNP Referral Date : 04/26/16 Date: 05/27/2016 Referring Practitioner: Desi Rg CNP Referral Date : 04/26/16 Diagnosis: L ankle pain/sprain Treatment Diagnosis: Difficulty walking Onset Date: 04/17/16 PT Insurance Information: [facility] Total # of Visits Approved: [...] ROM without complaints of increased pain. -progressing Nursing Home Goals - Time Frame for rn long term care goals : 4 weeks rn long term care goal 1: Pt will be independent and compliant with her HEP rn long term care goal 2: Pt pain will be controlled and less than 2/10 in the L ankle to improve ability to ambulate with fluidity and efficiency. rn long term care goal 3: Pt strength of L ankle will allow at least 10 single leg heel raises to indicate improved propulsion for gait. rn long term care goal 4: Pt strength will be 5/5 and pt will demonstrate good stability for RTW. Post Treatment Pain: 02/24 Time In: 1330 (Pt was late ) Time Out: 1430 Timed Code Treatment Minutes: 30 Minutes Total Treatment Time: 45 Minutes Aaron Hanley Therapy License Number: HOSPICE CLINICAL MARKETER Date: 05/27/2016 Cosigned by Ewa Tiwari PT at 06/18/2016 2:07 PM EDT documented in this encounter Plan of Treatment Not on file documented as of this encounter Visit Diagnoses Not on filedocumented in this encounter Care Teams Manager Animation Relationship Specialty Start Date End Date Thaddeus Alfredo Sr., DO [address] [place] [address] PCP - General 05/06/16 documented as of this encounter
--- OUTSIDE RECORDS SUMMARY | 2024-11-19 06:20 | XMS_ITS ---
Author Organization The [facility] in [place] Address [address] [place] [address] Care Team Providers Care Double Backer Name Role Phone Manisha Marc CNP Primary Care Provider U Aaron Willis Unavailable [phone] REASON FOR VISIT 3 mos Encounters Encounter Location Date Provider Diagnosis Urology [address] [place] [address] 11/19/2024 Aaron Eastman Plan Of Treatment Next Appt Details Provider Name:Tiffanie Villalobos , 06/07/2025 08:30:00 AM, [address] [place], [address], Provider Name:Aaron Eastman , 07/12/2025 10:30:00 AM, [address] [place], [address], Progress Notes * Ashly PACK KDOB:1990 (34 yo F)Acc No.[id number]:11/19/2024 UNLOCKED PROGRESS NOTE Patient: Ashly HARO Provider: Brett Eastman MD :1990 A ge:34 Y S ex:Female Date:11/19/2024 Address[address] [place], [place] Pcp:Manisha Marc CNP Subjective: * Chief Complaints: * 1 . 3 mos. * Medical History: Objective: * Vitals: Assessment: Plan: * Treatment: * * Electronic signature of Urban Eastman MD, [id number] on 01/24/2025 at 07:58 AM EDT Sign off status: Pending Visit Status: R /S (Rescheduled) * Provider: Brett Eastman MD Date: 0 11/19/2024 Generated for [facility] quiles/Gifty/Alosmitting on: 0 01/24/2025 07:58 AM EDT
--- OUTSIDE RECORDS SUMMARY | 2024-12-08 10:11 | XMS_ITS | Continuity of Care Document ---
Author Organization [facility] Address [address] [place] [address] Phone Care Team Providers Care Rn Or Lvn Name Role Phone Serjio DIAZS, Efrmin Unavailable Unavailable Allergies, Adverse Reactions, Alerts Substance Reaction Status Criticality cefaclor Active No Information amoxicillin Active No Information erythromycin base Active No Informa tion Medications Medication Instructions Dosage Effective Dates (start - stop) Status Comments Tylenol Extra Strength 500 mg tablet take 1 tablet by oral route every 6 hours as needed as needed 500 MG - Active lamotrigine 25 mg tablet - A ctive methenamine hippurate 1 gram tablet - Active clindamycin HCl 150 mg capsule - Active pantoprazole 40 mg tablet,delayed release TAKE 1 TABLET BY MOUTH ONCE DAILY - Active ciprofloxacin 500 mg tablet - Active phenazopyridine 200 mg tablet TAKE 1 TABLET BY MOUTH THREE TIMES DAILY FOR 6 DOSES - Active sulfamethoxazole 800 mg-trimethoprim 160 mg tablet - Active Clenpiq 10 mg-3.5 gram-12 gram/175 mL oral solution - Active FeroSul 325 mg (65 mg iron) tablet TAKE 1 TABLET BY MOUTH ONCE DAILY - Active carbamazepine ER 100 mg capsule,extended release [id number] - Active naproxen sodium 550 mg tablet TAKE 1 TABLET BY MOUTH TWICE DAILY - Active ketorolac 10 mg tablet - Act rafal ondansetron 4 mg disintegrating tablet - Active clindamycin HCl 300 mg capsule - Active ibuprofen 800 mg tablet - Ac tive ferrous sulfate 325 mg (65 mg iron) tablet TAKE 1 TABLET BY MOUTH ONCE DAILY - Active valacyclovir 1 gram tablet - Active metronidazole 500 mg tablet - Active nitrofurantoin monohydrate/macrocrystal s 100 mg capsule take 1 capsule by mouth every morning and at bedtime for 7 days - Active fluocinonide 0.05 % topical solution apply 3 TO 4 drops to scalp once daily ON FRIDAY THROUGH FRIDAY then off - Active ketoconazole 2 % shampoo shampoo as dire cted two times a week LEAVE ON FOR 3 TO 5 MINUTES, THEN WASH OUT - Active celecoxib 100 mg capsule - A ctive cyclobenzaprine 10 mg tablet - Active megestrol 20 mg tablet - Act rafal baclofen 10 mg tablet take 1 tablet by oral route 2 times every day 10 MG - Active meloxicam 15 mg tablet take 1 tablet by oral route every day 15 MG - Active Ventolin HFA 90 mcg/actuation aerosol inhaler inhale 2 puff by inhalation route every 4 - 6 hours as needed 180 MCG - Active lisinopril 2.5 mg tablet take 1 tablet b y oral route every day 2.5 MG - Active metformin 500 mg tablet take 1 tablet by oral route 2 times every day with morning and evening meals 500 MG - Active Cymbalta 20 mg capsule,delayed release take 1 capsule by oral route 2 times every day 20 MG - Active Multi Vitamin 9 mg iron/15 mL oral liquid - Active gabapentin 100 mg capsule take 1 capsule by oral route 2 times every day 100 MG - Active Problems Condition Type Effective Dates (start - stop) Clini heike Status Comments No Known Problems Procedures Procedure Date Oral Hygiene Instruction Resin Composite 2s; Posterior High Risk Prophylaxis Adult Nutrit Couns For Control Of Guy Dis Nov Oral Hygiene Instruction Resin Composite 2s; Posterior Oral Hygiene Instruction Extract; Erupted Th/exposted Rt 025 Oral Hygiene Instruction Intraoral-complete Series (bw) 25 Oral Hygiene Instruction Comp Oral Eval New/estab Patient 2024 Extract; Erupted Th/exposted Rt 025 Oral Hygiene Instruction Intraoral-periapical 1st Film Bitewig-single Film Limited Oral Eval Nutrit Couns For Control Of Guy Dis Sep Extract; Erupted Th/exposted Rt 024 Nutrit Couns For Control Of Guy Dis Jun [id number] Additional Jun Bitewig-single Film Oral Hygiene Instruction Limited Oral Eval [id number] Additional Feb Bitewig-single Film Oral Hygiene Instruction Limited Oral Eval Advance Directives Directive Yes / No Effective Date File Name No Information Encounters Encounter Description Practice Location Reason(s) For Visit Diagnoses Date Provider Providers Copied on Encounter [facility], [address] [place] [address], [id number], tel:[phone] Dental Clinic fill (chief complaint) No Information Serjio SENIOR [facility]. [address] [place] [address], [id number] , [place]. tel:[phone] [facility], [address] [place] [address], [id number], [place] tel:[phone] Dental Clinic Encounter for screening for dental disorders Serjio SENIOR [facility]. [address] [place] [address], [id number] , . tel:[phone] [facility], [address] [place] [address], [id number], tel:[phone] Dental Clinic pa (chief complaint) Body mass index [BMI] 50.0-59.9, adultEncounter for screening for dental disorders [facility] [place]. [address], [place], [id number] , [place]. tel: [phone] [facility], [address], [place], [id number], [place] tel:[phone] Dental Clinic Encounter for screening for dental disorders [facility] [place]. [address], [place], [id number] , [place]. tel: [phone] [facility], [address] [place] [address], [id number], [place] tel:[phone] Dental Clinic ext (chief complaint) Encounter for screening for dental disorders [facility] [place]. [address], [place], [id number] , [place]. tel: [phone] [facility], [address] [place] [address], [id number], [place] tel:[phone] Dental Clinic dn (chief complaint) Encounter for screening for dental disorders [facility] [place]. [address] [place] [address], [id number] , [place]. tel: [phone] [facility], [address] [place] [address], [id number], [place] tel:[phone] Dental Clinic ext (chief complaint) Encounter for screening for dental disorders [facility] [place]. [address], [place], [id number] , [place]. tel: [phone] [facility], [address] [place] [address], [id number], [place] tel:[phone] Dental Clinic DN (chief complaint) Body mass index [BMI] 50.0-59.9, adultEncounter for screening for dental disorders Jason [facility]ellar. [address], [place], [id number] , [place]. tel: [phone] [facility], [address] [place] [address], [id number], [place] tel:[phone] Dental Clinic ext (chief complaint) Encounter for screening for dental disorders Jason Cuellar. [address], [place], [id number] , [place]. tel:[phone] [facility], [address] [place] [address], [id number], [place] tel:[phone] Dental Clinic dl (chief complaint) Encounter for screening for dental disorders Jason Cuellar. [address], [place], [id number] , [place]. tel:[phone] [facility], [address] [place] [address], [id number], [place] tel:[phone] Dental Clinic de (chief complaint) Encounter for screening for dental disorders Jason Cuellar. [address], [place], [id number] , [place]. tel:[phone] Family History Family Member Type Diagnosis Age At Onset No Information Payers Payer name Insurance type Covered democrat ID Payton florentino(joni) D [facility] Medicaid [facility] [id number] D Medicaid [facility] [id number] Social History Type Description Quantity Date Captured Comments Alcohol Use Details Unknown Caffeine Use Details Unknown Tobacco Use Status Current non-smoker Smoking Status Never smoker Sex Female Sexual Orientation Straight or heterosexual Feb Gender Identity Female Chief Complaint And Reason For Visit From encounter dated '12/08/2024 14:11'. fill (chief complaint). Description: fill Reason For Referral Reason For Referral No Information Plan Of Treatment Date Type Action Status Goal HPV. Due on due Goal Depression scree laith. Due on due Goal RLP. Due on due Goal Tdap. Due on due Goal Influenza vaccine. Due on Ap due Goal Unhealthy drug u se screening. Due on due Goal Hepatitis C scre ening. Due on due Goal Tdap Vaccine. Due on 2024 due Goal PRAPARE ASSESSMENT. Due on A due Goal Hep A. Due on du e Goal Tdap. Due on due Goal Unhealthy drug u se screening. Due on due Goal HPV. Due on due Goal Influenza vaccine. Due on due Goal RLP. Due on due Goal Tdap Vaccine. Due on 2024 due Goal Hepatitis C scre ening. Due on due Goal Depression scree laith. Due on due Goal PRAPARE ASSESSMENT. Due on A due Goal Dietary manageme nt education, guidance, and counseling completed Goal Tdap Vaccine. Due on 2024 due Goal Depression scree laith. Due on due Goal Hepatitis C scre ening. Due on due Goal Influenza vaccine. Due on Ca due Goal PRAPARE ASSESSMENT. Due on M due Goal Unhealthy drug u se screening. Due on due Goal HPV. Due on due Goal RLP. Due on due Goal Tdap. Due on due Goal PRAPARE ASSESSMENT. Due on due Goal RLP. Due on due Goal Hep A. Due on du e Goal Influenza vaccine. Due on due Goal Unhealthy drug u se screening. Due on due Goal Depression scree laith. Due on due Goal HPV. Due on due Goal Tdap. Due on due Goal Tdap Vaccine. Due on 2024 due Goal Hepatitis C scre ening. Due on due Goal Depression scree laith. Due on due Goal Influenza vaccine. Due on due Goal Hep A. Due on du e Goal Unhealthy drug u se screening. Due on due Goal Hepatitis C scre ening. Due on due Goal Tdap. Due on due Goal HPV. Due on due Goal PRAPARE ASSESSMENT. Due on due Goal RLP. Due on due Goal Tdap Vaccine. Due on 2024 due Goal Depression scree laith. Due on due Goal Unhealthy drug u se screening. Due on due Goal Tdap Vaccine. Due on 2024 due Goal Hep A. Due on du e Goal Hepatitis C scre ening. Due on due Goal RLP. Due on due Goal Influenza vaccine. Due on due Goal Tdap. Due on due Goal PRAPARE ASSESSMENT. Due on due Goal HPV. Due on due Goal Hep A. Due on du e Goal Tdap Vaccine. Due on 2023 due Goal PRAPARE ASSESSMENT. Due on N due Goal RLP. Due on due Goal Unhealthy drug u se screening. Due on due Goal HPV. Due on due Goal Tdap. Due on due Goal Depression scree laith. Due on due Goal Hepatitis C scre ening. Due on due Goal Influenza vaccine. Due on due Goal Hep A. Due on du e Goal Influenza vaccine. Due on due Goal Depression scree laith. Due on due Goal Hepatitis C scre ening. Due on due Goal Tdap. Due on due Goal RLP. Due on due Goal Unhealthy drug u se screening. Due on due Goal HPV. Due on due Goal PRAPARE ASSESSMENT. Due on due Goal Tdap Vaccine. Due on 2023 due Goal HPV. Due on due Goal PRAPARE ASSESSMENT. Due on due Goal RLP. Due on due Goal Tdap. Due on due Goal Influenza vaccine. Due on due Goal Hepatitis C scre ening. Due on due Goal Depression scree laith. Due on due Goal Tdap Vaccine. Due on 2023 due Goal Unhealthy drug u se screening. Due on due Referral Ordered: Manisha Marc timeframe: 6 Months. (related to Body mass index [BMI] 50.0-59.9, adult) ordered Appointment Ashly Mehta BOOKED Nutrition Recommendation Oral nutritional support completed History Of Present Illness Encounter Date Complaint History Of Prese nt Illness fill fill pa pa ext ext dn dn ext ext DN DE ext dl dl de de Functional Status Date Functional Assessmen t No Information Instructions Date Instruction Additional Infor mation Dietary management e ducation, guidance, and counseling Related to Body mass index [BMI] 50.0-59.9, adult Giving encouragement to exercise Related to Body mass index [BMI] 50.0-59.9, adult Giving encouragement to exercise Related to Body mass index [BMI] 50.0-59.9, adult Assessments Type Assessment Date No Information Patient Care Teams Name Effective Dates (start - stop) Status Members No Information
--- OUTSIDE RECORDS SUMMARY | 2025-01-04 05:30 | XMS_ITS ---
Author Organization The [facility] in [place] Address [address] [place] [address] Care Team Providers Care Transit Specialist Name Role Phone Manisha Marc CNP Primary Care Provider U Tiffanie Bill Unavailable [phone] REASON FOR VISIT MD Encounters Encounter Location Date Provider Diagnosis [facility] [address] [place] [address] 01/04/2025 Tiffanie Villalobos Plan Of Treatment Next Appt Details Provider Name:Tiffanie Villalobos , 06/07/2025 08:30:00 AM, [address] [place], [address], Provider Name:Aaron Eastman , 07/12/2025 10:30:00 AM, [address] [place] [address], [phone], Progress Notes * Ashly PACK KDOB:1990 (34 yo F)Acc No.[id number]:01/04/2025 UNLOCKED PROGRESS NOTE Progress Notes Patient: Ashly HARO Provider: Mariola Villalobos M.D. :1990 A ge:34 Y S ex:Female Date:01/04/2025 Address[address] [id number] Pcp:Manisha Marc CNP Subjective: * Chief Complaints: * 1 . MD. * Medical History: Objective: * Vitals: Assessment: Plan: * Treatment: * * Electronic signature of Aiden Villalobos MD, [id number] on 01/24/2025 at 07:58 AM EDT Sign off status: Pending Visit Status: A [facility] (Voice) * Provider: Mariola Villalobos M.D. Date: 0 01/04/2025 Generated for [facility]iles/[employer]if[employer]/eTransmitting on: 0 01/24/2025 07:58 AM EDT
--- OUTSIDE RECORDS SUMMARY | 2025-01-04 09:10 | XMS_ITS ---
Author Organization [facility] [place] Address [address] [place] [address] Care Team Providers Care Windows Server Engineer Name Role Phone Manisha Marc CNP Primary Care Provider Aaron Morrison Unavailable [phone] Allergies Allergen (clinical drug ingredient) Drug/Non Drug Allergy documented on EMR Reaction Allergy Type Onset Date Status amoxicillin Amoxicillin hives Drug Allergy Act rafal cefaclor Cefaclor hives Drug Allergy Active erythromycin Erythromycin Hives,Rash Drug Allergy Active REASON FOR VISIT 3 mos Medications Medication SIG (Take, Route, Frequency, Duration) Notes Start Date End Date Status Baclofen 10 MG TAKE 1 TABLET BY MABEL TH THREE TIMES DAILY NEEDED Oral for 30 Days Not-Taki ng Albuterol Active lamoTRIgine 25 MG Oral for 30 Days Active Gabapentin 300 MG Oral for 30 Days Not-Taking DULoxetine HCl 60 MG TAKE 2 CAPSULES BY MOUTH ONCE DAILY Oral for 90 Days Active ARIPiprazole Active Pantoprazole Sodium Active valACYclovir HCl 1 GM TAKE 1 TABLET BY M OUTH TWICE DAILY FOR 10 DAYS (MORNING AND BEFORE BED) Oral for 10 Days Active Multi-Vitamin Active Myrbetriq 25 MG 1 tablet Orally Once a day for 30 days 01/04/2025 Active Methenamine Hippurate 1 GM 1 tablet Orally Twice a day for 30 days 09/03/2024 Active metFORMIN HCl ER 500 MG Oral for 30 Days Active Meloxicam 15 MG Oral for 30 Days Not-Taking Lisinopril 10 MG Oral for 90 Days Active Social History Tobacco Use: Social History Observation Description Date Details (start date - stop date) Never Smoker NA - NA Tobacco Control (Standard) Question Answer Notes Tobacco use: Nonsmoker AUDIT-C (Standard) Question Answer Notes Did you have a drink contain ing alcohol in the past year? Yes How often did you have a dri nk containing alcohol in the past year? Never (0 point) How many drinks did you have on a typical day when you were drinking in the past year? 1 or 2 drinks (0 point) How often did you have six o r more drinks on one occasion in the past year? Less than monthly (1 point) Points 1 Interpretation Negative Vital Signs Weight 338.4 lbs 01/04/2025 Height 64 in 01/04/2025 BMI 58.08 kg/m2 01/04/2025 Encounters Encounter Location Date Provider Diagnosis Urology [facility] [address] [place] [address] 01/04/2025 Aaron Eastman Other chronic cystitis without hematuria N30.20 and Vaginal voiding N39.8 Assessments Encounter Date Diagnosis (ICD Code) Assessment Notes Treatment Notes Treatment Clinical Notes Section Notes 01/04/2025 Other chronic cystitis without hematuria (ICD-10 - N30.20) 01/04/2025 Vaginal voiding (ICD-10 - N39.8) 01/04/2025 Other Cont methenamine, this is working well. Suspect vaginal voiding. Plan Of Treatment Medication Medication Name Sig Start Date Stop Date Notes Myrbetriq 25 MG 1 tablet Orally Once a day for 30 days Treatment Notes Assessment Notes Other Cont methenamine, this is working well. Suspect vaginal voiding. Next Appt Details Follow Up: 6 Months, Reason: Provider Name:Tiffanie Villalobos , 06/07/2025 08:30:00 AM, [address] [place], [address], Provider Name:Aaron Eastman , 07/12/2025 10:30:00 AM, [address] [place], [address], Progress Notes * Ashly PACK KDOB:1990 (34 yo F)Acc No.[id number]:01/04/2025 Patient: Ashly HARO Provider: Brett Eastman MD :1990 A ge:34 Y S ex:Female Date:01/04/2025 Address:[place], [id number] Pcp:Manisha Marc, MANAGER SITE Check In:01:14 PM ESTCheck O ut:01:50 PM EST Subjective: * Chief Complaints: * 3 mos * HPI: U rology: We see Ashly for recurrent UTIs including ESBL e coli. We started her on methenamine and this stopped all infections. She's also having some leakage during the day. We suspect possible vaginal, avoiding. Will try to spread the legs wide open during voids, and if this does not improve will start Myrbetriq. Recurrent UTIs H ow long have you had this problem? / * ROS: G eneral/Constitutional: Fever d enies. W eight loss d enies. F atigue or Weakness d enies. G enitourinary: Incontinence a dmits, must wear protective pads. F requent urination d enies. P ainful urination d enies. B lood in Urine d enies. * Active Problem List N30.20 Other chronic cystit is without hematuria Modified On:09/03/2024W/U Status:confirmed * Medical History: * Surgical History: C olposcopy- multiple Cholecystectomy Laparoscopy dilatation and curettage, Hysteroscopy Teeth removal L4-L5 back ablation Colonoscopy Endoscopy * Hospitalization/Major Diagno stic Procedure: * Family History: M other: Breast cancer. * Social History: T obacco Use: T obacco Control (Standard) T obacco use: N onsmoker D rug/Alcohol: A RADHA-C (Standard) D id you have a drink containing alcohol in the past year? Y es H ow often did you have a drink containing alcohol in the past year? N ever (0 point) H ow many drinks did you have on a typical day when you were drinking in the past year? 1 or 2 drinks (0 point) H ow often did you have six or more drinks on one occasion in the past year? L ess than monthly (1 point) P oints 1 I nterpretation N egative D rugs/Alcohol: C affeine I ntake: m ore than 4 cups per day * Medications: T akingAlbuterol ARIPiprazole DULoxetine HCl 60 MG Capsule Delayed Release Particles TAKE 2 CAPSULES BY MOUTH ONCE DAILY Oral lamoTRIgine 25 MG Tablet Oral Lisinopril 10 MG Tablet Oral metFORMIN HCl ER 500 MG Tablet Extended Release 24 Hour Oral Methenamine Hippurate 1 GM Tablet 1 tablet Orally Twice a day Multi-Vitamin Pantoprazole Sodium valACYclovir HCl 1 GM Tablet TAKE 1 TABLET BY MOUTH TWICE DAILY FOR 10 DAYS (MORNING AND BEFORE BED) Oral Taking Albuterol Taking ARIPiprazole Taking DULoxetine HCl 60 MG Capsule Delayed Release Particles TAKE 2 CAPSULES BY MOUTH ONCE DAILY Oral Taking lamoTRIgine 25 MG Tablet Oral Taking Lisinopril 10 MG Tablet Oral Taking metFORMIN HCl ER 500 MG Tablet Extended Release 24 Hour Oral Taking Methenamine Hippurate 1 GM Tablet 1 tablet Orally Twice a day Taking Multi- Vitamin Taking Pantoprazole Sodium Taking valACYclovir HCl 1 GM Tablet TAKE 1 TABLET BY MOUTH TWICE DAILY FOR 10 DAYS (MORNING AND BEFORE BED) Oral Not-Taking/PRNBaclofen 10 MG Tablet TAKE 1 TABLET BY MOUTH THREE TIMES DAILY NEEDED Oral Gabapentin 300 MG Capsule Oral Meloxicam 15 MG Tablet Oral Medication List reviewed and reconciled with the patientNot-Taking/PRN Baclofen 10 MG Tablet TAKE 1 TABLET BY MOUTH THREE TIMES DAILY NEEDED Oral Not-Taking/PRN Gabapentin 300 MG Capsule Oral Not- Taking/PRN Meloxicam 15 MG Tablet Oral Medication List reviewed and reconciled with the patient * Allergies: E rythromycin: Hives,RashAmoxicillin: hivesCefaclor: hivesno[Allergies Verified] Objective: * Vitals: W t:338.4lbs, Ht: 64 in, BMI:58.08Index, Ht-cm: 162.56 cm, Wt-k.5 kg. Assessment: * Assessment: 1. O ther chronic cystitis without hematuria - N30.20 (Primary) 2 . V aginal voiding - N39.8 Plan: * Treatment: * Procedure Codes: * Follow Up: 6 Months * * Sign off status: Completed Visit Status: C HK (Check Out) true * Provider: Brett Eastman MD Date: 0 01/04/2025 Generated for [facility] quiles/Gifty/Alosmitting on: 0 01/24/2025 07:58 AM EDT History and Physical Notes * HPI (History of Present Illness) Category Sub-Category Detail Notes Category Not es Urology Recurrent UTIs How long have you had this probl em?: /
--- OUTSIDE RECORDS SUMMARY | 2025-01-24 07:59 | XMS_ITS | Encounter Summary ---
Author Organization [facility] Address [address] [facility] [place] [address] Care Team Providers Care Speech Pathology Teacher Name Role Phone Thaddeus Alfredo MD Primary Care Provider [phone] Consuelo Love HYDRAULIC ASSEMBLER Unavailable [phone] Akil Cox DO Unavailable [phone] Manisha Marc HYDRAULIC ASSEMBLER Unavailable Encounter Details Date Type Department Care Team (Late st Contact Info) Description 02/13/2023 Abstract [facility] OB [address] [place] [address] Marko Ocsar DO [address] [place] [address] Dr [place], [facility] Social History Tobacco Use Types Packs/Day Years [...] Care Team (Late st Contact Info) Description 11/09/2025 3:00 PM EDT Office Visit [facility] [address] [place] [phone] Marko Oscar DO [address] [place] [address] [place] [address] documented as of this encounter Visit Diagnoses Not on filedocumented in this encounter Care Teams Speech Pathology Teacher Relationship Specialty Start Date End Date Thaddeus Alfredo MD [address] [place] [address] PCP - General Family Medicine 04/24/23 11/09/24 Consuelo Love NP [address] [place] [address] Nurse Practitioner Neurology 11/10/24 Akil Cox DO [address] [place], [place] [address] Referring Physician Neurology 11/10/24 Manisha Marc NP [address] [facility] [address] [place] [id number] Referring Physician Family Medicine 11/10/24 documented as of this encounter
--- OUTSIDE RECORDS SUMMARY | 2025-01-24 07:59 | XMS_ITS | Encounter Summary ---
Author Organization [facility] Address [address] [place] [address] Care Team Providers Care Sap Project Manager Name Role Phone House, Thaddeus Brown MD Primary Care Provider Consuelo Love DEVELOPMENT ENGINEER Unavailable [phone] Akil Cox DO Unavailable [phone] Manisha Marc DEVELOPMENT ENGINEER Unavailable Encounter Details Date Type Department Care Team (Late st Contact Info) Description 03/11/2023 Abstract [facility] [address] [facility] [place] [address] Teri Love PA [address] [facility] [facility] [address] [place], [facility]11 Social History Tobacco Use Types Packs/Day [...] OB [address] [facility] [place] [phone] Marko Oscar DO [address] [facility] [address] [place] [address] documented as of this encounter Visit Diagnoses Not on filedocumented in this encounter Care Teams Sap Project Manager Relationship Specialty Start Date End Date Thaddeus Alfredo MD [address] [place] [address] PCP - General Family Medicine 04/24/23 11/09/24 Consuelo Love NP [address] [address] Nurse Practitioner Neurology 11/10/24 Akil Cox DO [address] [place] [id number] Referring Physician Neurology 11/10/24 Manisha Marc NP [address] [facility] [place] [address] Referring Physician Family Medicine 11/10/24 documented as of this encounter
--- OUTSIDE RECORDS SUMMARY | 2025-01-24 07:59 | XMS_ITS | Clinical Summary ---
Author Organization [employer] Address [id number] [address] [place] [address] Care Team Providers Care Tree Fruit And Nut Farming Supervisor Name Role Phone Manisha Marc Primary Care [...] cystoscopy. Potential retrograde pyelogram. CT urogram cytology. [facility] bladder solution Hematuria, microscopic 06/03/2018 Overview [...] Medical Devices Not on file Insurance MEDICAID [facility] MEDICAID Care Teams Tree Fruit And Nut Farming Supervisor Relationship Specialty Start Date End Date Manisha Marc APRN-NP [address] [place] [address] PCP - General Nurse Practitioner 04/14/24
--- OUTSIDE RECORDS SUMMARY | 2025-01-24 07:59 | XMS_ITS | Encounter Summary ---
Author Organization [facility] Address [address] [facility] [place] [address] Care Team Providers Care Undercoat Sprayer Name Role Phone Thaddeus Alfredo MD Primary Care Provider [phone] Consuelo Love SENIOR CUSTOMER SERVICE REPRESENTATIVE Unavailable [phone] Akil Cox DO Unavailable [phone] Manisha Marc SENIOR CUSTOMER SERVICE REPRESENTATIVE Unavailable Encounter Details Date Type Department Care Team (Late st Contact Info) Description 02/04/2023 Abstract [facility] OB [address] [place] [address] Marko Oscar DO [address] [place] [address] Dr [place] Pabon, [facility]11 Social History Tobacco Use Types Packs/Day [...] 11/09/2025 3:00 PM EDT Office Visit [facility] [address] [facility] [place] [phone] Marko Oscar DO [address] [place] [address] [place] [address] documented as of this encounter Visit Diagnoses Not on filedocumented in this encounter Care Teams Undercoat Sprayer Relationship Specialty Start Date End Date Thaddeus Alfredo MD [address] [place] [address] PCP - General Family Medicine 04/24/23 11/09/24 Consuelo Love NP [address] [place] [address] Nurse Practitioner Neurology 11/10/24 Akil Cox DO [address] [place], [place] [phone] Referring Physician Neurology 11/10/24 Manisha Marc NP [address] [facility] [address] [place] [id number] Referring Physician Family Medicine 11/10/24 documented as of this encounter
--- OUTSIDE RECORDS SUMMARY | 2025-01-24 07:59 | XMS_ITS | Encounter Summary ---
Author Organization [facility] Address [address] [facility] [place] [address] Care Team Providers Care Manufacturing Quality Technician Name Role Phone Thaddeus Alfredo MD Primary Care Provider Consuelo Love RACE STEWARD Unavailable [phone] Akil Cox DO Unavailable Manisha Marc RACE STEWARD Unavailable Encounter Details Date Type Department Care Team (Late st Contact Info) Description 01/31/2023 Abstract [facility] OB [address] [place] [address] Marko Oscar DO [address] [place] [address] Dr Rolando Pabon, [facility]11 Social History Tobacco Use Types Packs/Day Years [...] 11/09/2025 3:00 PM EDT Office Visit [facility] OB [address] [facility] [place] [phone] Marko Oscar DO [address] [place] [address] [place] [address] documented as of this encounter Visit Diagnoses Not on filedocumented in this encounter Care Teams Manufacturing Quality Technician Relationship Specialty Start Date End Date Thaddeus Alfredo MD [address] [place] [address] PCP - General Family Medicine 04/24/23 11/09/24 Consuelo Love NP [address] [place] [address] Nurse Practitioner Neurology 11/10/24 Akil Cox DO [address] [place], [place] [address] Referring Physician Neurology 11/10/24 Manisha Marc NP [address] [facility] [address] [place] [id number] Referring Physician Family Medicine 11/10/24 documented as of this encounter
--- OUTSIDE RECORDS SUMMARY | 2025-01-24 07:59 | XMS_ITS | Clinical Summary ---
Author Organization [facility] Address [address] [place] [address] Care Team Providers Care Vault Cashier Name Role Phone IvanConsuelo RESTAURANT KITCHEN AND SERVICE MANAGER Unavailable [phone] Akil Cox DO Unavailable [phone] Manisha Marc RESTAURANT KITCHEN AND SERVICE MANAGER Unavailable [phone] Allergies Active Allergy Reactions Criticality Noted Date [...] cystoscopy. Potential retrograde pyelogram. CT urogram cytology. [facility] bladder solution ==== 06/03/2018 ==== several year history of recurrent urinary tract infections and heralded by urgency frequency dysuria. Sometimes some incontinence. No documented fevers. No gross hematuria. Persistent microscopic hematuria per primary care note. Plan: Evaluate lower urinary tract cystoscopy. Potential retrograde pyelogram. CT urogram cytology. [facility] bladder solution Encounters Date Type Department Care Team Description 01/06/2025 Abstract [facility] [place] [address] [place] [address] Marko Oscar DO 11/30/2024 1:00 PM EDT Ancillary Procedure [facility] [place] [address] [place] [address] PCOS (polycystic ovarian syndrome) 11/30/2024 Travel 11/23/2024 Telephone [facility] [place] [address] [place] [address] Shilpa Snider MA 11/10/2024 9:00 AM EDT Office Visit [facility] [place] [address] [place] [address] Consuelo Love NP Cognitive dysfunction (Primary Dx); ALEXX (obstructive sleep apnea); Attention deficit hyperactivity disorder (ADHD), unspecified ADHD type (CMS/HCC); Severe anxiety; Severe episode of recurrent major depressive disorder, without psychotic features (HCC) (CMS/HCC); Bipolar affective disorder, remission status unspecified (CMS/HCC); Episodic migraine (CMS/HCC) 11/10/2024 Bamboo flowsheet [facility] [address] [place] [address] Consuelo Love NP 11/05/2024 Telephone [facility] [place] [address] [place] [address] Shilpa Snider MA 11/03/2024 3:20 PM EDT Office Visit [facility] [place] [address] [place] [address] Marko Oscar DO Well woman exam with routine gynecological exam; Exposure to STD; Vaginal discharge; Missed menses; PCOS (polycystic ovarian syndrome); Vaginal itching 11/03/2024 Clinisync Result Encounter [facility] External Department Unsolicited Marko Oscar DO 11/03/2024 External Result Encounter [facility] External Department Unsolicited Marko Oscar DO 11/03/2024 Bamboo flowsheet [facility] [address] [facility] [place] [address] Marko Oscar DO from Last 3 [...] Visit [facility] [address] [place] [address] Marko Oscar DO [facility] [place], [place] [id number] Health Maintenance Due Date Last Done Comments [...] II, MD, PHD at 01-Dec-2024 12:04:08 AM [facility] Procedure Note Jacqueline Yuen MD - [...] signed by JACQUELINE YUEN II, MD, PHD [id number] 12:04:08 AM [facility] PROCED[facility] Final Result * (ABNORMAL) RECURRENT VAGINITIS (HTRX) (11/03/2024 4:28 PM EDT) Pathologist [facility] ATOPOBIUM VAGINAE 0.000 19.961 - 24.689 ppm 11/05/2024 6:29 AM EDT [facility] ATOPOBIUM VAGINAE Not Detected 19.961 - 24.689 ppm 11/05/2024 6:29 AM EDT [facility] BVAB 2,3 (BACTERIAL VAGINOSIS ASSOCIATED BACTERIA 2, 3); MOBILUNCUS SPP 0.000 19.961 - 24.689 ppm 11/05/2024 6:29 AM EDT [facility] BVAB 2,3 (BACTERIAL VAGINOSIS ASSOCIATED BACTERIA 2, 3); MOBILUNCUS SPP Not Detected 19.961 - 24.689 ppm 11/05/2024 6:29 AM EDT [facility] AMY ALBICANS, PARAPSILOSIS, TROPICALIS 0.000 19.961 - 30.770 ppm 11/05/2024 6:29 AM EDT [facility] AMY ALBICANS, PARAPSILOSIS, TROPICALIS Not Detected 19.961 - 30.770 ppm 11/05/2024 6:29 AM EDT [facility] AMY GLABRATA 0.000 23.000 - 32.138 ppm 11/05/2024 6:29 AM EDT [facility] AMY GLABRATA Not Detected 23.000 - 32.138 ppm 11/05/2024 6:29 AM EDT [facility] AMY KRUSEI 0.000 23.000 - 32.271 ppm 11/05/2024 6:29 AM EDT [facility] AMY KRUSEI Not Detected 23.000 - 32.271 ppm 11/05/2024 6:29 AM EDT [facility] CHLAMYDIA TRACHOMATIS 0.000 23.000 - 31.467 ppm 11/05/2024 6:29 AM EDT [facility] CHLAMYDIA TRACHOMATIS Not Detected 23.000 - 31.467 ppm 11/05/2024 6:29 AM EDT [facility] GARDNERELLA VAGINALIS 30.951(A) 19.961 - 24.689 ppm 11/05/2024 6:29 AM EDT [facility] GARDNERELLA VAGINALIS Detected(A) 19.961 - 24.689 ppm 11/05/2024 6:29 AM EDT [facility] MEGASPHAERA (TYPES 1, 2) 0.000 19.961 - 24.689 ppm 11/05/2024 6:29 AM EDT [facility] MEGASPHAERA (TYPES 1, 2) Not Detected 19.961 - 24.689 ppm 11/05/2024 6:29 AM EDT [facility] NEISSERIA GONORRHOEAE 0.000 23.000 - 32.117 ppm 11/05/2024 6:29 AM EDT [facility] NEISSERIA GONORRHOEAE Not Detected 23.000 - 32.117 ppm 11/05/2024 6:29 AM EDT [facility] TRICHOMONAS VAGINALIS 0.000 23.000 - 32.119 ppm 11/05/2024 6:29 AM EDT [facility] TRICHOMONAS VAGINALIS Not Detected 23.000 - 32.119 ppm 11/05/2024 6:29 AM EDT [facility] MYCOPLASMA GENITALIUM 0.000 19.961 - 24.689 ppm 11/05/2024 6:29 AM EDT [facility] MYCOPLASMA GENITALIUM Not Detected 19.961 - 24.689 ppm 11/05/2024 6:29 AM EDT [facility] ERMB, C; MEFA 26.408(A) 23.000 - 27.611 ppm 11/05/2024 6:29 AM EDT [facility] ERMB, C; MEFA Detected(A) 23.000 - 27.611 ppm 11/05/2024 6:29 AM EDT [facility] TET B, TET M 23.734(A) 23.000 - 27.778 ppm 11/05/2024 6:29 AM EDT [facility] TET B, TET M Detected(A) 23.000 - 27.778 ppm 11/05/2024 6:29 AM EDT [facility] Tissue 11/03/2024 4:28 PM EDT 11/05/2024 1:43 AM EDT us Marko Celestina DO LAB BLOOD ORDERABLES Final Resul t [facility] [address] [place] [address] * POCT , urine manually resulted (11/03/2024 4:07 PM EDT) Preg Test, Ur Negative Negative Urine 11/03/2024 4:07 PM EDT Marko Oscar DO POINT OF CARE TEST ENTER/EDIT OR DERABLES Final Result * IGP,APTIMA HPV,AGE GDLN (11/03/2024 3:39 PM EDT) AGE GDLN ACOG TESTING Note . [facility] Comment: TESTS RESULT FLAG UNITS REF RANGE LAB Clinician Provided Cytology Information Source.............Cervix;Endocervix No. of containers..01 ThinPrep Vial Age Algo ACOG Elise... 30-65 01 FLAG LEGEND: L-Low Normal,H-High Normal,LL-Alert Low,HH-Alert High <-Panic Low,>-Panic High,A-Abnormal,AA-Critical Abnormal Performed at: 01 =G [facility] [address] Monse Cardona MD, IGP, APTIMA HPV, RFX 16/18,45 Note . [facility] Comment: TESTS RESULT FLAG UNITS REF RANGE LAB DIAGNOSIS: 02 NEGATIVE FOR INTRAEPITHELIAL LESION OR MALIGNANCY. Specimen adequacy: 02 Satisfactory for evaluation. Endocervical and/or squamous metaplastic cells (endocervical component) are present. Performed by: 02 Hiro Garces, Cardboard Inserter (ASCP) . 02 Note: Note 02 The [...] <-Panic Low,>-Panic High,A-Abnormal,AA-Critical Abnormal Performed at: 02 [facility] [place] [place] [address] Monse Cardona MD, HPV APTIMA Negative Negative [facility] Comment: This nucleic acid amplification test detects fourteen high- risk HPV types (16,18,31,33,35,39,45,51,52,56,58,59,66,68) without differentiation. Performed at: =G - [facility], [place], [place] [id number] Internet Network Specialist: Monse Cardona MD, Phone: [phone] Performed at: [facility] [place] [id number] Internet Network Specialist: Monse Cardona MD, Phone: [phone] 11/03/2024 3:39 PM EDT 11/03/2024 6:16 PM EDT Narrative [facility] - 11/08/2024 8:08 AM EDT BRUSH-SPATULA CERVIX ENDOCERVIX us Marko Celestina DO LAB BLOOD ORDERABLES Final Resul t [facility] * Pap Smear (11/03/2023 12:00 AM EDT) Swab Cervical swab / Unknown [facility] Michael Oscar Nurse LAB CYTOLOGY ORDERABLES Final Result EXTERNAL LAB from Last 3 Months or Most Recently Relevant to Health Maintenance Insurance [employer] MEDICAID Care Teams Vault Cashier Relationship Specialty Start Date End Date Consuelo Love NP [address] [place] [address] Nurse Practitioner Neurology 11/10/24 Akil Cox DO [address] [place] [address] Referring Physician Neurology 11/10/24 Manisha Marc NP [facility] [facility] [place] [address] Referring Physician Family Medicine 11/10/24
--- OUTSIDE RECORDS SUMMARY | 2025-01-24 07:59 | XMS_ITS | Patient Health Record ---
Author Organization [facility] Address [address] [place] [address] Care Team Providers Care Wood Carver Hand Name Role Phone Manisha Marc CNP Primary Care Provider U Aaron Willis Unavailable [phone] Tiffanie Villalobos Unavailable [phone] Allergies Allergen (clinical drug ingredient) Drug/Non Drug Allergy documented on EMR Reaction Allergy Type Onset Date Status amoxicillin Amoxicillin hives Drug Allergy Act rafal cefaclor Cefaclor hives Drug Allergy Active erythromycin Erythromycin Hives,Rash Drug Allergy Active Results Component Value Reference Range Notes FERRITIN (Not yet reviewed b y provider) Interpretation: Performing Lab: Notes/Report: [facility] , Ferritin 43.0 8.0-252.0 ng/mL Performing Lab: see note ML - [facility] LB IRON AND TIBC (Not yet revie wed by provider) Interpretation: Performing Lab: Notes/Report: [facility] , Iron 50.0 50.0-170.0 ug/dL Total Iron Binding Capacity 380.0 250.0-450.0 ug/dL Percent Iron Saturation 13.2 Performing Lab: see note ML - [facility] LB Erythrocyte Sedimentation Ra te (Not yet reviewed by provider) Interpretation: Performing Lab: Notes/Report: [facility] , Erythrocyte Sedimentation Rate 46 <=20 mm/hr Performing Lab: see note ML - [facility] LB PROF CHEM 8 (BAS METB) (Not yet reviewed by provider) Interpretation: Performing Lab: Notes/Report: [facility] , Sodium 138 136-145 mmol/L Potassium [...] Performing Lab: see note ML - [facility] LB IRON AND TIBC (Not yet revie wed by provider) Interpretation: Performing Lab: Notes/Report: [facility] , Iron 70.0 50.0-170.0 ug/dL Total Iron Binding Capacity 290.0 250.0-450.0 ug/dL Percent Iron Saturation 24.1 Performing Lab: see note ML - [facility] LB FERRITIN (Not yet reviewed b y provider) Interpretation: Performing Lab: Notes/Report: [facility] , Ferritin 321.0 8.0-252.0 ng/mL Performing Lab: see note ML - [facility] LB CRP (Not yet reviewed by pro vider) Interpretation: Performing Lab: Notes/Report: [facility] , C Reactive Protein 1.07 <=0.50 mg/dL Performing Lab: see note ML - [facility] LB CBC AUTO DIFF (Not yet revie wed by provider) Interpretation: Performing Lab: Notes/Report: [facility] , White Blood Count 9.2 4.0-11.0 [...] 3/uL Performing Lab: see note ML - [facility] LB Vitamin B12 (Not yet reviewe d by provider) Interpretation: Performing Lab: Notes/Report: [facility] , Vitamin B12 581 275-1182 pg/mL [address] [place], [place] [id number] Picture Engraver: Cassius Zhong PhD, Phone: [phone] [facility]formed at: - [facility] Performing Lab: see note - [facility] LB Erythrocyte Sedimentation Ra te (Not yet reviewed by provider) Interpretation: Performing Lab: Notes/Report: [facility] , Erythrocyte Sedimentation Rate 41 <=20 mm/hr Performing Lab: see note - [facility] LB LDH (Not yet reviewed by pro vider) Interpretation: Performing Lab: Notes/Report: [facility] , Lactate Dehydrogenase 202 81-234 U/L Performing Lab: see note - [facility] LB CRP (Not yet reviewed by pro vider) Interpretation: Performing Lab: Notes/Report: [facility] , C Reactive Protein 0.74 <=0.50 mg/dL Performing Lab: see note - [facility] LB CBC AUTO DIFF (Not yet revie wed by provider) Interpretation: Performing Lab: Notes/Report: [facility] , White Blood Count 11.3 4.0-11.0 [...] 10 3/uL Performing Lab: see note - [facility] LB IMMUNOGLOBULIN E, TOTAL (Not yet reviewed by provider) Interpretation: Performing Lab: Notes/Report: [facility] , Immunoglobulin E, Total 236 6-495 IU/mL [address] [place], [place] [id number] Picture Engraver: Jeanna Case MD, Phone: [phone] Performed at: - [facility] Performing Lab: see note - [facility] Reticulocyte Pct Auto (Not y et reviewed by provider) Interpretation: Performing Lab: Notes/Report: [facility] , Reticulocyte Pct Auto 1.53 0.60-3.10 % Performing Lab: see note - [facility] LB YU, PE and FLC, Serum (Not yet reviewed by provider) Interpretation: Performing Lab: Notes/Report: [facility] , Immunoglobulin G, Qn, Serum 4801 223-1640 mg/dL Immunoglobulin A, Qn, Serum 122 87-352 mg/dL Immunoglobulin M, Qn, Serum 105 26-217 mg/dL Protein, Total 6.6 6.0-8.5 g/dL Albumin 3.4 2.9-4.4 g/dL Chyqx-1-Sklqcpbk 0.2 0.0-0.4 g/dL Rtdxn-0-Idgvceub 0.8 0.4-1.0 g/dL Beta Globulin 1.0 0.7-1.3 g/dL Gamma Globulin 1.1 0.4-1.8 g/dL M-Manpreet Not Observed Not Observed g/dL Globulin, Total 3.2 2.2-3.9 g/dL A/G Ratio 1.1 0.7-1.7 Immunofixation Result, Serum Comment . No monoclonality det ected. Please note: Comment . Protein electrophoresis scan will follow via computer, mail, or stitcher special machine delivery. Free [place] Lt Chains,S 18.1 3.3-19.4 mg/L Free Lambda Lt Chains,S 19.6 5.7-26.3 mg/L [place]/Lambda Ratio,S 0.92 0.26-1.65 Performed at: [address] [id number] Picture Engraver: Cassius Zhong PhD, Phone: [phone] Performing Lab: see note - [facility] LB Erythrocyte Sedimentation Ra te (Not yet reviewed by provider) Interpretation: Performing Lab: Notes/Report: [facility] , Erythrocyte Sedimentation Rate 31 <=20 mm/hr Performing Lab: see note ML - [facility] LB LDH (Not yet reviewed by pro vider) Interpretation: Performing Lab: Notes/Report: [facility] , Lactate Dehydrogenase 190 81-234 U/L Performing Lab: see note ML - [facility] LB CRP (Not yet reviewed by pro vider) Interpretation: Performing Lab: Notes/Report: [facility] , C Reactive Protein 0.96 <=0.50 mg/dL Performing Lab: see note ML - [facility] LB CBC AUTO DIFF (Not yet revie wed by provider) Interpretation: Performing Lab: Notes/Report: [facility] , White Blood Count 6.7 4.0-11.0 [...] Performing Lab: see note ML - [facility] LB YU and PE, Serum (Not yet r eviewed by provider) Interpretation: Performing Lab: Notes/Report: [facility] , Immunoglobulin G, Qn, Serum 3352 963-3078 mg/dL Immunoglobulin A, Qn, Serum 130 87-352 mg/dL Immunoglobulin M, Qn, Serum 148 26-217 mg/dL Protein, Total 6.7 6.0-8.5 g/dL Albumin 3.5 2.9-4.4 g/dL Jqkkg-8-Wenxcppx 0.2 0.0-0.4 g/dL Gnhiu-0-Ymgbkgkm 0.8 0.4-1.0 g/dL Beta Globulin 1.0 0.7-1.3 g/dL Gamma Globulin 1.1 0.4-1.8 g/dL M-Manpreet Not Observed Not Observed g/dL Globulin, Total 3.2 2.2-3.9 g/dL A/G Ratio 1.1 0.7-1.7 Immunofixation Result, Serum Comment . No monoclonality det ected. Please note: Comment . Performed at: [facility] [address] [id number] Protein electrophoresis scan will follow via computer, Picture Engraver: Cassius Zhong PhD, Phone: [phone] mail, or stitcher special machine delivery. Performing Lab: see note - [facility] LB Reason For Referral No Information Medications [...] Problem Status W/U Status Risk Notes Problem Chronic cystitis (15492301) Other chronic cystitis without hematuria (N30.20) Active confirmed Vital Signs Height 64 in 01/04/2025 Weight 338.4 lbs 01/04/2025 BMI 58.08 kg/m2 01/04/2025 Encounters Encounter Location Date Provider Diagnosis [facility] Oncology [address] [place] [address], [place] [address] 07/19/2024 Tiffanie [facility] Oncology [address] [facility] [place] [address] 07/26/2024 Tiffanie [facility] Oncology [address] [place] [address] 06/29/2024 Tiffanie [facility] Oncology [address] [facility] [place] [address] 07/13/2024 Tiffanie [facility] Oncology [address] [facility] [place] [address] 10/12/2024 Tiffanie [facility] Oncology [address] [facility] [place] [address] 01/04/2025 Tiffanie [facility] Urology [facility] [address] [place] [address] 01/04/2025 Aaron Eastman Other chronic cystitis without hematuria N30.20 and Vaginal voiding N39.8 Urology [facility] [address] [place] [place] [address] 09/03/2024 Aaron Eastman Other chronic cystitis without hematuria N30.20 Assessments Encounter Date Diagnosis (ICD Code) Assessment [...] Villalobos , 06/07/2025 08:30:00 AM, [address] [place], [address], Provider Name:Aaron Eastman , 07/12/2025 10:30:00 AM, [address] [place], [address], Insurance Providers Payer Name Payer Address Payer Phone Subscriber Number Group Number Insured Name Patient Relationship to Insured Coverage Start Date Coverage End Date [employer] [place]ICA[employer] [address] [place] [address] [phone] [id number] Ashly Mehta Self - patient is the insured Medical (General) History Medical History History ICD Code Arthritis seizures bipolar disorder asthma depression hypertension attention deficit hyperactivity disorder PCOS Surgical History Surgery Date(Month/Year) Colposcopy- multiple Cholecystectomy Laparoscopy dilatation and curettage, Hysteroscopy Teeth removal L4-L5 back ablation Colonoscopy Endoscopy
--- OUTSIDE RECORDS SUMMARY | 2025-01-24 07:59 | XMS_ITS | Encounter Summary ---
Author Organization [facility] Address [address] [place] [address] Care Team Providers Care Area Cleaner Name Role Phone Thaddeus Alfredo MD Primary Care Provider Consuelo Love IN SCHOOL SUSPENSION COORDINATOR Unavailable [phone] Akil Cox DO Unavailable [phone] Manisha Marc IN SCHOOL SUSPENSION COORDINATOR Unavailable [phone] Encounter Details Date Type Department Care Team (Late st Contact Info) Description 04/07/2023 Abstract [facility] [address] [place] [address] Zane Wright, DPM [address] [place], [place] [phone] Social History Tobacco Use Types Packs/Day Years [...] EDT Office Visit [facility] OB [address] [facility] [place] [address] Marko Oscar DO [address] [facility] [place] [address] documented as of this encounter Visit Diagnoses Not on filedocumented in this encounter Care Teams Area Cleaner Relationship Specialty Start Date End Date Thaddeus Alfredo MD [address] [place] [address] PCP - General Family Medicine 04/24/23 11/09/24 Consuelo Love NP [address] [phone] Nurse Practitioner Neurology 11/10/24 Akil Cox DO [address] [place], [place] [address] Referring Physician Neurology 11/10/24 Manisha Marc NP [address] [facility] [place] [address] Referring Physician Family Medicine 11/10/24 documented as of this encounter
--- OUTSIDE RECORDS SUMMARY | 2025-01-24 08:00 | XMS_ITS | Clinical Summary ---
Author Organization [facility] Address [address] [place] [address] Care Team Providers Care Labor Relations Manager Name Role Phone House Sr., Thaddeus RAMOS [...] Plan of Treatment Not on file [facility] Care Teams Labor Relations Manager Relationship Specialty Start Date End Date Thaddeus Alfredo Sr., [address] [place] [address] PCP - General 05/06/16
--- OUTSIDE RECORDS SUMMARY | 2025-01-24 08:00 | XMS_ITS | Encounter Summary ---
Author Organization [facility] Address [address] [place] [address] Care Team Providers Care Cattle Producers Name Role Phone House, Thaddeus Brown MD Primary Care Provider Consuelo Love ASSISTANT ENGINEER Unavailable [phone] Akil Cox DO Unavailable [phone] Manisha Marc ASSISTANT ENGINEER Unavailable Encounter Details Date Type Department Care Team (Late st Contact Info) Description 10/23/2023 Abstract [facility] [address] [place] [address] Consuelo Love NP [address] [place] [address] Social History Tobacco Use Types Packs/Day [...] PM EDT Office Visit [place] [address] Marko Oscar DO [address] [place] [address] documented as of this encounter Visit Diagnoses Not on filedocumented in this encounter Care Teams Cattle Producers Relationship Specialty Start Date End Date Thaddeus Alfredo MD [address] [place] [address] PCP - General Family Medicine 04/24/23 11/09/24 Consuelo Love NP [address] [address] Nurse Practitioner Neurology 11/10/24 Akil Cox DO [address] [place], [place] [address] Referring Physician Neurology 11/10/24 Manisha Marc NP [address] [facility] [place] [address] [place] [place] [address] Referring Physician Family Medicine 11/10/24 documented as of this encounter
--- OUTSIDE RECORDS SUMMARY | 2025-01-24 08:00 | XMS_ITS | Encounter Summary ---
Author Organization [facility] Address [address] [place] [address] Care Team Providers Care Camera Supervisor Name Role Phone Juni, Thaddeus Brown MD Primary Care Provider Consuelo Love AOC DIRECTOR INTELLIGENCE OFFICER Unavailable [phone] Akil Cox DO Unavailable [phone] Manisha Marc AOC DIRECTOR INTELLIGENCE OFFICER Unavailable [phone] Encounter Details Date Type Department Care Team (Late st Contact Info) Description 03/09/2024 Orders Only [facility] [address] [facility] [place] [address] Stella Marcos LPN [address] [facility] [address] Social History Tobacco Use Types [...] EDT Office Visit [facility] [address] [facility] [place] [phone] Marko Oscar DO [address] [place] [address] [place] [address] documented as of this encounter Procedures Procedure [...] on filedocumented in this encounter Care Teams Camera Supervisor Relationship Specialty Start Date End Date Thaddeus Alfredo MD [address] [place] [address] PCP - General Family Medicine 04/24/23 11/09/24 Consuelo Love NP [address] [phone] Nurse Practitioner Neurology 11/10/24 Akil Cox DO [address] [phone] Referring Physician Neurology 11/10/24 Manisha Marc NP [address] [facility] [place] [address] [place] [address] Referring Physician Family Medicine 11/10/24 documented as of this encounter
--- OUTSIDE RECORDS SUMMARY | 2025-01-24 08:00 | XMS_ITS | Encounter Summary ---
Author Organization [facility] Address [address] [facility] [place] [address] Care Team Providers Care Gut Dropper Name Role Phone Consuelo Love PLASTERER HELPER Unavailable [phone] Akil Cox DO Unavailable [phone] Manisha Marc PLASTERER HELPER Unavailable [phone] Encounter Details Date Type Department Care Team (Late st Contact Info) Description 01/06/2025 Abstract [facility] [address] [place] [phone] Marko Oscar [address] [place], [place] [id number] Social History Tobacco Use Types Packs/Day Years [...] EDT Office Visit [facility] [address] [place] [address] Marko Oscar DO [address] [place] [address] [address] [place], [place] [id number] documented as of this encounter Visit Diagnoses Not on filedocumented in this encounter Care Teams Gut Dropper Relationship Specialty Start Date End Date Consuelo Love NP [address] [phone] Nurse Practitioner Neurology 11/10/24 Akil Cox DO [address] [phone] Referring Physician Neurology 11/10/24 Manisha Marc NP [facility] [facility] [address] [place] [address] Referring Physician Family Medicine 11/10/24 documented as of this encounter
--- OUTSIDE RECORDS SUMMARY | 2025-01-24 08:00 | XMS_ITS | Encounter Summary ---
Author Organization [facility] Address [address] [place] [address] Care Team Providers Care Rag Sorter Name Role Phone Juni, Thaddeus Brown MD Primary Care Provider Consuelo Love STEEL INSPECTOR Unavailable [phone] Akil Cox DO Unavailable [phone] Manisha Marc STEEL INSPECTOR Unavailable Encounter Details Date Type Department Care Team (Late st Contact Info) Description 10/18/2024 Abstract [facility] [address] [place] [address] Marko Oscar DO [address] [place], [place] [id number] Social History Tobacco Use Types Packs/Day Years [...] EDT Office Visit [facility] [address] [facility] [place] [phone] Marko Oscar DO [address] [facility] [place] [address] documented as of this encounter Visit Diagnoses Not on filedocumented in this encounter Care Teams Rag Sorter Relationship Specialty Start Date End Date Thaddeus Alfredo MD [address] [place] [address] PCP - General Family Medicine 04/24/23 11/09/24 Consuelo Love NP [address] [phone] Nurse Practitioner Neurology 11/10/24 Akil Cox DO [address] [phone] Referring Physician Neurology 11/10/24 Manisha Marc NP [address] [facility] [place] [address] Referring Physician Family Medicine 11/10/24 documented as of this encounter
--- OUTSIDE RECORDS SUMMARY | 2025-01-24 08:00 | XMS_ITS | Encounter Summary ---
Author Organization [facility] Address [address] [place] [address] Care Team Providers Care Revenue Tax Specialist Name Role Phone Thaddeus Alfredo MD Primary Care Provider Consuelo Love STRIPPER SHOVEL OPERATOR Unavailable [phone] Akil Cox DO Unavailable [phone] Chris Lopez STRIPPER SHOVEL OPERATOR Unavailable [phone] Encounter Details Date Type Department Care Team (Late st Contact Info) Description 08/20/2023 Clinisync Result Encounter [facility] External Department Unsolicited Teri Love PA [address] [facility] [place] [address] Social History Tobacco Use Types Packs/Day Years [...] EDT Office Visit [facility] [address] [facility] [place] [place] [address] Marko Oscar, DO [address] [facility] [place] [address] documented as of this encounter Procedures Procedure Name Priority Date/Time Associated Diagnosis Comments US BREAST RT COMPLETE 08/20/2023 1:41 PM EST documented in this encounter Results * US BREAST RT COMPLETE (08/20/2023 1:41 PM EST) Anatomical Region Laterality Modality Radiographic Miroslava ging 08/20/2023 1:41 PM EST Narrative 08/20/2023 1:42 PM EST [address] [address] Ultrasound Report Signed Patient: DIMITRY PACK MR#: [id number] : 1990 Acct:[id number] Age/Sex: 32 / F ADM Date: 08/20/23 Loc: US Attending Dr: Teri Love Ordering Physician: Teri Love Date of Service: 08/20/23 Procedure(s): US breast RT complete Accession Number(s): [id number] cc: Teri Love; CHRIS LOPEZ Patient Name: DIMITRY PACK MR#: [id number] : 1990 Exam Date: 08/20/2023 Ordering Doctor: [...] Dictated By: Raul Chew M.D. Signed By: 08/20/231341 DD/ 134 TD/TT: Group Managing Director: Procedure Note Radiology, Radiologist, - 08/21/[address] [address] Ultrasound Report Signed Patient: DIMITRY PACK KMR#: [id number] : 1990Acct:[id number] Age/Sex: 32 FADM Date: 08/20/23 Loc: US Attending Dr: Teri Love Ordering Physician: Teri Love Date of Service: 08/20/23 Procedure(s): US breast RT complete Accession Number(s): [id number] cc: Teri Love; CHRIS LOPEZ Patient Name: DIMITRY PACK MR#: [id number] : 1990 Exam Date: 08/20/2023 Ordering Doctor: [...] 13:41 Dictated By: Raul Chew M.D. Signed By:08/20/231341 DD/ 40 TD/TT: Group Managing Director: us Teri LOVELL IMG XR PROCEDURES Final Result documented in this encounter Visit Diagnoses Not on filedocumented in this encounter Care Teams Revenue Tax Specialist Relationship Specialty Start Date End Date Thaddeus Alfredo MD [address] [phone] PCP - General Family Medicine 04/24/23 11/09/24 Consuelo Love NP [address] [place] [phone] Nurse Practitioner Neurology 11/10/24 Akil Cox DO [address] [place], [place] [phone] Referring Physician Neurology 11/10/24 Chris Lopez NP [facility] [facility] [place] [address] Referring Physician Family Medicine 11/10/24 documented as of this encounter
--- OUTSIDE RECORDS SUMMARY | 2025-01-24 08:20 | XMS_ITS | CCD ---
Author Organization [facility] Care Team Providers Care Picker Tender Name Role Phone BRENT KINNEY Referring Unavailable BRENT KINNEY Attending Unavailable BRENT KINNEY Admitting Unavailable Michelle Ernandez Unavailable VIOLA, DR NUR Consulting Unavailable [place], DR NUR Admitting Unavailable [place], DR NUR Primary Care Unavailable HOUSE, DR NUR Attending Unavailable ZIEBER, DR SUGEY Ibrahim Consulting Unavailable CELESTINA ., DR COLLADO Admitting Unavailable HOUSE, DR NUR Primary Care Unavailable CELESTINA ., DR COLLADO Attending Unavailable CELESTINA ., DR COLLADO Consulting Unavailable HOUSE, DR NUR Consulting Unavailable [place], DR NUR Primary Care Unavailable HOUSE, DR [...] CELESTINA ., DR COLLADO Admitting Unavailable Casandra Hassna Unavailable Nely Cruz Unavailable Celio Mullins Unavailable Manisha Marc Unavailable ROSITA Marc Primary Care Provider ROSITA Marc Attending Provider DO Celio Mullins Attending Provider ROSITA Marc Primary Care Provider MD Clinton Frazier Attending Provider [phone] ROSITA Marc Attending Provider ROSITA Marc Primary [...] Provider Giwill CROWLEY, Andrius Vytautcortez Attending Unavailable Giedrakatalina CROWLEY, Andrius Vytautas Attending Unavailable Giedrakatalina CROWLEY, Andrius Vytautas Attending Unavailable Giedrakatalina CROWLEY, Andrius Vytautcortez Attending Unavailable DenyrbROSITA servin Primary Care Provider MD Edward Gilmore Attending Provider [phone] ROSITA Marc Primary Care Provider MD Edward Gilmore Attending Provider ROSITA Hassan Attending Provider [phone] ROSITA Marc Primary Care Provider MD Edward Gilmore Attending Provider [phone] ROSITA Hassan Attending Provider Thaddeus Rod MD Primary Care Provider Manisha Marc APRN Primary Care Provider Edward Gilmore MD Attending Provider [phone] Casandra Hassan APRN Attending Provider [phone] Manisha Marc APRN Attending Provider Tari BECKER, Manisha Primary Care Provider Edward Gilmore MD Attending Provider NO FAMILY, PHYSICIAN Primary Care Provider Unava ilable Loretta RAMOS Hilaria L Attending Provider Manisha Marc APRN Primary Care Provider Edward Gilmore MD Attending Provider [phone] Manisha Marc APRN Attending Provider Edward Gilmore MD Attending Provider Loretta RAMOS Hilaria Chitra Attending Provider Manisha Marc APRN Primary Care Provider [...] Unavailab le Manisha Marc Primary Care Unavailable Brodie Burgose L Admitting Unavailable Loretta Hilaria L Attending Unavailable Manisha Marc Primary Care Unavailable Manisha Marc Attending Unavailable Manisha Marc Admitting Unavailable Allergies Allergy Classification Reported Allergen(s) Allergy Type Date of Onset Reaction(s) Facility (20 sources) Amoxicillin; Translations: [AMOXICILLIN] Drug Allergy 07-08-20 16 daniel [facility] Repository (20 sources) Cefaclor; Translations: [CEFACLOR] Drug Allergy 04-14-20 15 [facility] Repository (20 sources) Erythromycin; Translations: [ERYTHROMYCIN] Drug Allergy 04-14-[address] [facility] Repository (19 sources) Cefaclor; Translations: [Ceclor] Drug Allergy 04-17-20 15 [facility] Repository (20 sources) Erythromycin Drug Allergy 04-17-20 15 Unknown Reaction, [facility] Repository (20 sources) Cephalosporins (Antibiotic); Translations: [Cephalosporins] Allergy to substance 12-10-19 22 Unknown Reaction, Rash [facility] (2 sources) Lactulose Drug Allergy 02-12-20 20 Unknown Reaction [facility] (1 source) Erythromycin Drug Allergy 11-16-19 25 [facility] Repository Medications Current Medications Medication Drug Class(es) Dates Sig (Normalized) Sig (Original) [id number] 200 actuat albuterol 0.09 mg/actuat metered dose [...] Li sinopril Active take 1 tablet by [facility] every twenty-four hours Lisinopril 10 MG 1 [...] 10/10/2023 11/03/2024 Discontinued take 1 capsule by [facility] every twenty-four hours Vraylar 1.5 MG 1 [...] Start: 05-31-2021 take 1 capsule by mo [facility] every twelve hours Macrobid 100 MG [...] II, MD, PHD at 01-Dec-2024 12:04:08 AM [facility] Normal Not Available Comment on above: Order Comment: US PE LVIS-TRANSVAG IF INDICATED No LMP recorded. HCG ( test) Ql (U)o n 11-03-2024 Interpretation and review of laboratory results Normal [facility] Preg Test, Ur Negative Negative [facility] Healthcare [facility] Healthcare Human papilloma virus 16+18+ 31+33+35+39+45+51+52+56+58+59+66+68 DNA [Presence] in [place] 11-03-2024 HPV 16+18+31+33+35+39+45+51 +52+56+58+59+66+68 DNA Probe+sig amp Ql (Cvx) Human papilloma virus 16+18+31+33+35+39+45+51 +52+56+58+59+66+68 DNA [Presence] in Cer Negative [facility] Comment on above: This nucleic acid am plification test detects fourteen high-risk HPV types (16,18,31,33,35,39,45,51,52,56,58,59,66,68)without differentiation.Performed at: =G - [facility] [id number] Director: Monse Cardona MD, Phone: [phone] at: - [facility] [address] [id number] Director: Monse Cardona MD, Phone: [phone] No Panel Informationon 11-03 HPV High Risk Other Comment Note . [facility] Comment on above: TESTS RESULT FLAG UN ITS REF RANGE LAB -DIAGNOSIS: 02 NEGATIVE FOR INTRAEPITHELIAL LESION OR MALIGNANCY.Specimen adequacy: 02 Satisfactory for evaluation. Endocervical and/or squamous metaplastic cells (endocervical component) are present.Performed by: Mikhail Garces, Registered Occupational Therapist (ASCP). 02Note: Note 02 The Pap smear [...] Low,>-Panic High,A-Abnormal,AA-Critical Abnormal ------Performed at:02 WB [facility] [place] [place] [address] Monse Cardona MD, Reference Lab Test Patient Age Note . [facility] Comment on above: TESTS RESULT FLAG UN ITS REF RANGE LAB - Clinician Provided Cytology Information Source.............Cervix;Endocervix No. of containers..01 ThinPrep VialAge Leeo KARRIE Elise... 30-65 FLAG LEGEND: L-Low Normal,H-High Normal,LL-Alert Low,HH-Alert High <-Panic Low,>-Panic High,A-Abnormal,AA-Critical Abnormal ------Performed at:01 =G [facility] [place] [address] [place] [address] Monse Cardona MD, Basophils Auto (Bld) [#/Vol] on 10-12-2024 Basophils (Bld) [#/Vol] Automated basoph il count 0.0-0.1 [facility] Basophils/100 WBC Auto (Bld) on 10-12-2024 Basophils/100 WBC (Bld) Automated basophil % 0. 2-2.0 [facility] Eosinophils/100 WBC Auto (Bl d)on 10-12-2024 Eosinophils/100 WBC (Bld) Automated eosinophil % 0.9-7.0 [facility] Erythrocyte distribution wid th Auto (RBC) [Ratio]on 10-12-2024 Erythrocyte distribution width (RBC) [Ratio] Erythrocyte distribution width [Ratio] by Automated count 11.0-15.0 [facility] Estimated glomerular filtrat ion rate (GFR) non- Americanon 10-12-2024 GFR/1.73 sq M.predicted among non-blacks MDRD (S/P/Bld) [Vol rate/Area] Estimated glomerular filtration rate (GFR) non- >=60 mL/min/1.7 3m 2 [facility] Hematocrit Auto (Bld) [Volum e fraction]on 10-12-2024 Hematocrit (Bld) [Volume fraction] Hematocrit [Volume Fraction] of Blood by Automated count 36.0-48.0 [facility] Hemoglobin [Mass/volume] in Bloodon 10-12-2024 Hemoglobin (Bld) [Mass/Vol] Hemoglobin [Mass/volume] in Blood 12.0-16.0 [facility] Iron binding capacity [Mass/ volume] in Serum or Plasmaon 10-12-2024 Iron binding capacity [Mass/Vol] Iron binding capacity [Mass/volume] in Serum or Plasma 250.0-450. 0 [facility] Iron saturation [Mass Fracti on] in Serum or Plasmaon 10-12-2024 Iron saturation [Mass fraction] Iron saturation [Mass Fraction] in Serum or Plasma [facility] Laboratory - Chemistry and C hemistry - challengeon 10-12-2024 Calcium [Mass/Vol] 9.0 mg/dL 8.5-10.1 [facility] Chloride [Moles/Vol] 104 mmol/L 98-107 [facility] CO2 [Moles/Vol] 26.8 mmol/L 21.0-32.0 [facility] Creatinine [Mass/Vol] 0.73 mg/dL 0.55-1.02 [facility] Ferritin [Mass/Vol] 321.0 ng/mL High 8.0-252.0 [facility] GFR/1.73 sq M.predicted MDRD (S/P/Bld) [Vol rate/Area] mL/min/{1.73_m2} >=60 mL/min/1.7 3m 2 [facility] Glucose [Mass/Vol] 89 mg/dL 74-106 [facility] Iron [Mass/Vol] 70.0 ug/dL 50.0-170.0 [facility] Potassium [Moles/Vol] 4.4 mmol/L 3.5-5.1 [facility] Sodium [Moles/Vol] 138 mmol/L 136-145 [facility] Urea nitrogen [Mass/Vol] 10.0 mg/dL 7.0-18.0 [facility] Urea nitrogen/Creatinine [Mass ratio] 13.7 mg/mg [facility] Laboratory - Hematology and Cell countson 10-12-2024 ESR (Bld) [Velocity] 46 mm/h High <=20 [facility] Immature granulocytes/100 WBC (Bld) 0.3 % 0.0-0.5 [facility] Leukocytes [#/volume] correc carmelita for nucleated erythrocytes in Blood by Automated counon 10-12-2024 WBC corrected for nucl RBC Auto (Bld) [#/Vol] Leukocytes [#/volume] corrected for nucleated erythrocytes in Blood by Automated coun 4.0-11.0 [facility] Lymphocytes Auto (Bld) [#/Vo l]on 10-12-2024 Lymphocytes (Bld) [#/Vol] Lymphocytes [#/volume] in Blood by Automated count 1.2-3.8 [facility] Lymphocytes/100 WBC Auto (Bl d)on 10-12-2024 Lymphocytes/100 WBC (Bld) Lymphocytes/100 leukocytes in Blood by Automated count 20.5-60.0 [facility] MCH Auto (RBC) [Entitic mass ]on 10-12-2024 MCH (RBC) [Entitic mass] MCH [Entitic mass] by Automated count 26.7-34.0 [facility] MCHC Auto (RBC) [Mass/Vol]on 10-12-2024 MCHC (RBC) [Mass/Vol] MCHC [Mass/volume] by Automated count 29.9-35.2 [facility] MCV Auto (RBC) [Entitic vol] on 10-12-2024 MCV (RBC) [Entitic vol] MCV [Entitic vol ume] by Automated count 81.0-99.0 [facility] Monocytes Auto (Bld) [#/Vol] on 10-12-2024 Monocytes (Bld) [#/Vol] Automated blood monocyte count 0.3-0.8 [facility] Monocytes/100 WBC Auto (Bld) on 10-12-2024 Monocytes/100 WBC (Bld) Automated monocyte % 1. 7-12.0 [facility] Neutrophils Auto (Bld) [#/Vo l]on 10-12-2024 Neutrophils (Bld) [#/Vol] Neutrophils [#/volume] in Blood by Automated count 1.4-6.5 [facility] Neutrophils/100 WBC Auto (Bl d)on 10-12-2024 Neutrophils/100 WBC (Bld) Automated neutrophil % 43.0-75.0 [facility] No Panel Informationon 10-12 C-Reactive Protein, Quantitative 1.07 mg/dL High <=0.50 [facility] Eosinophils # (Auto) 0.2 10 3/uL 0.0-0.7 [facility] Immature Granulocyte # (Auto) 0.03 10 3/uL 0.00-0.03 [facility] Platelet mean volume Auto (B ld) [Entitic vol]on 10-12-2024 Platelet mean volume (Bld) [Entitic vol] Platelet mean volume [Entitic volume] in Blood by Automated count Low 9.5-13.5 [facility] Platelets Auto (Bld) [#/Vol] on 10-12-2024 Platelets (Bld) [#/Vol] Platelets [#/vol ume] in Blood by Automated count 150-450 [facility] RBC Auto (Bld) [#/Vol]on RBC (Bld) [#/Vol] Erythrocytes [#/volu me] in Blood by Automated count 4.20-5.40 [facility] Serum or plasma anion gap de terminationon 10-12-2024 Anion gap [Moles/Vol] Serum or plasma an ion gap determination [facility] Influenza virus B Ag [Presen ce] in Upper respiratory specimen by Rapid immunoassayon 09-27-2024 FLUBV Ag IA.rapid Ql (Nph) Influenza virus B Ag [Presence] in Upper respiratory specimen by Rapid immunoassay [facility] No Panel Informationon 09-27 Influenza Type A (Rapid) Negative [facility] POC SARS CoV-2 Antigen Negative [facility] Iron binding capacity [Mass/ volume] in Serum or Plasmaon 08-24-2024 Iron binding capacity [Mass/Vol] Iron binding capacity [Mass/volume] in Serum or Plasma 250.0-450. 0 [facility] Iron saturation [Mass Fracti on] in Serum or Plasmaon 08-24-2024 Iron saturation [Mass fraction] Iron saturation [Mass Fraction] in Serum or Plasma [facility] Laboratory - Chemistry and C hemistry - challengeon 08-24-2024 Iron [Mass/Vol] 81.0 ug/dL 50.0-170.0 [facility] Measles virus IgG Ab [Units/ volume] in Serum by Immunoassayon 08-24-2024 MeV IgG IA Qn (S) Measles virus IgG Ab [Units/volume] in Serum by Immunoassay Immune >16.4 [facility] Comment on above: Negative <13.5 Equiv ocal 13.5 - 16.4 Positive >16.4Presence of antibodies to Rubeola is presumptive evidenceof immunity except when acute infection is suspected. No Panel Informationon 08-24 Rubella IgG Antibody <0.90 index Abnormal Immune >0.99 [facility] Comment on above: Non-immune <0.90 Equ ivocal 0.90 - 0.99 Immune >0.99 Serum mumps virus IgG antibo dy assay (units/volume)on 08-24-2024 MuV IgG Qn (S) Serum mumps virus Ig G antibody assay (units/volume) Abnormal Immune >10.9 [facility] Comment on above: Negative <9.0 Equivo heike 9.0 - 10.9 Positive >10.9A positive result generally indicates past exposure toMumps virus or previous vaccination.Performed at: - [address] [id number] Director: Cassius Zhong PhD, Phone: [phone] Pathology study report docum entOrdered By: Thaddeus Shah on 08-20-2024 Pathology study [facility] Other HCG ( test) IAcamden d Ql (U)Ordered By: Hilaria Burgos on 08-19-2024 HCG ( test) Ql (U) Urine human chorionic gonadotropin (hCG) detection by immunoassay [facility] HCG,Urineon 08-19-2024 Beta HCG ( test) Ql (U) Negative Normal [facility] Comment on above: Result Comment: PERF ORMED BY: [place] [address] PATHOLOGIST EHS MANAGER RYLAN BENEDICT M.D. Performed By: #### U HCG #### [address] 08-19-2024 L --- Specimen: [id number] Received: 08/19/24 Status: ARLINE Salter Num: [id number] Spec Type: Surgical Subm Dr: Hilaria Burgos DO Tissues: A Small Intestine - Biopsy/Polyp (SM BOWEL BX R/O CELIAC) B GASTRIC FOR HP (GASTRIC BX R/O H PYLORI) C Esophagus Biopsy (GE JUNCTION BX / ESOPHAGITIS) Procedures: PAS - LGRN, HE/6, Gross/Micro L4/3, H PYLORI Age/ Patient Sex Location Account Attending Physician Ashly Mehta 33/F [id number] Hilaria Burgos DO SPEC NUM: [id number] RECD: 08/19/24 STATUS: RONYChloé SALLY NUM: [id number] GRADY: 08/19/241003 [facility] DR: Hilaria Burgos DO ENTERED: 08/19/[address] [facility] [address]: ABHISHEK TYPE: Surgical DEPT: S ENTERED BY: [id number] RECV BY: [id number] ORDERED: PAS - LGRN, HE/6, Gross/Micro L4/3, [...] [id number] Received: 08/19/24 Status: ARLINE Salter Num: [id number] Spec Type: Surgical Subm Dr: Hilaria Burgos DO Tissues: A Small Intestine - Biopsy/Polyp (SM BOWEL BX R/O CELIAC) B GASTRIC FOR HP (GASTRIC BX R/O H PYLORI) C Esophagus Biopsy (GE JUNCTION BX / ESOPHAGITIS) Procedures: SHEILA KIRK, HE/6, Gross/Micro L4/3, H PYLORI Patient: Ashly Mehta [id number] (Continued) Specimen: [id number] Received: 08/19/24 (Continued) Signed (signature on file) Thaddeus Shah Jr., MD 08/20/24 1417 Specimen: Received: 08/19/24 Status: ARLINE Salter Num: [id number] Spec Type: Surgical Subm Dr: Hilaria Burgos, Tissues: A Small Intestine - Biopsy/Polyp (SM BOWEL BX R/O CELIAC) B GASTRIC FOR HP (GASTRIC BX R/O H PYLORI) C Esophagus Biopsy (GE JUNCTION BX / ESOPHAGITIS) Procedures: SHEILA KIRK, HE/6, Gross/Micro L4/3, H PYLORI Patient: Ashly Mehta [id number] (Continued) Specimen: Received: 08/19/24 (Continued) Gross Description [...] negative with a satisfactory control. CPT Codes 59924 x 3, 01234, 18656 -- (more content not included)... Normal [facility] Urine Cultureon 08-09-2024 Bacteria identified Cx Nom (U) ORGANISM: Escherichia coli (ESBL) (O:ESCCOLESBL) [place] Count >100,000 Aerobic RENATE Charge (NMIC56) -- [...] RESISTANT TO ALL B-LACTAM DRUGS. PERFORMED BY: [place] [address] PATHOLOGIST EHS MANAGER RYLAN BENEDICT M.D. Normal [facility] Comment on above: Performed By: #### C UU #### [address] Urine cultureOrdered By: Keesha Marc on 08-09-2024 Bacteria identified Cx Nom (U) Abnormal [facility] Albumin [Mass/volume] in Ser um or Plasmaon 06-29-2024 Albumin [Mass/Vol] Albumin [Mass/volume ] in Serum or Plasma 2.9-4.4 [facility] Basophils Auto (Bld) [#/Vol] on 06-29-2024 Basophils (Bld) [#/Vol] Automated basoph il count 0.0-0.1 [facility] Basophils/100 WBC Auto (Bld) on 06-29-2024 Basophils/100 WBC (Bld) Automated basophil % 0. 2-2.0 [facility] Eosinophils/100 WBC Auto (Bl d)on 06-29-2024 Eosinophils/100 WBC (Bld) Automated eosinophil % 0.9-7.0 [facility] Erythrocyte distribution wid th Auto (RBC) [Ratio]on 06-29-2024 Erythrocyte distribution width (RBC) [Ratio] Erythrocyte distribution width [Ratio] by Automated count High 11.0-15.0 [facility] Hematocrit Auto (Bld) [Volum e fraction]on 06-29-2024 Hematocrit (Bld) [Volume fraction] Hematocrit [Volume Fraction] of Blood by Automated count 36.0-48.0 [facility] Hemoglobin [Mass/volume] in Bloodon 06-29-2024 Hemoglobin (Bld) [Mass/Vol] Hemoglobin [Mass/volume] in Blood 12.0-16.0 [facility] IgA [Mass/volume] in Serum o r Plasmaon 06-29-2024 IgA [Mass/Vol] IgA [Mass/volume] in Serum or Plasma 87-352 [facility] IgG [Mass/volume] in Serum o r Plasmaon 06-29-2024 IgG [Mass/Vol] IgG [Mass/volume] in Serum or Plasma [phone] [facility] IgM [Mass/volume] in Serum o r Plasmaon 06-29-2024 IgM [Mass/Vol] IgM [Mass/volume] in Serum or Plasma 26-217 [facility] Iron binding capacity [Mass/ volume] in Serum or Plasmaon 06-29-2024 Iron binding capacity [Mass/Vol] Iron binding capacity [Mass/volume] in Serum or Plasma 250.0-450. 0 [facility] Iron saturation [Mass Fracti on] in Serum or Plasmaon 06-29-2024 Iron saturation [Mass fraction] Iron saturation [Mass Fraction] in Serum or Plasma [facility] Laboratory - Chemistry and C hemistry - challengeon 06-29-2024 Cobalamin (Vitamin B12) [Mass/Vol] 647 pg/mL [phone] [facility] Comment on above: Performed at: [facility] Ch[address] [id number] Director: Cassius Zhong PhD, Phone: [phone] Ferritin [Mass/Vol] 43.0 ng/mL 8.0-252.0 [facility] Iron [Mass/Vol] 50.0 ug/dL 50.0-170.0 [facility] LDH [Catalytic activity/Vol] 202 U/L 81-234 [facility] Laboratory - Hematology and Cell countson 06-29-2024 ESR (Bld) [Velocity] 41 mm/h High <=20 [facility] Immature granulocytes/100 WBC (Bld) 0.3 % 0.0-0.5 [facility] Leukocytes [#/volume] correc carmelita for nucleated erythrocytes in Blood by Automated counon 06-29-2024 WBC corrected for nucl RBC Auto (Bld) [#/Vol] Leukocytes [#/volume] corrected for nucleated erythrocytes in Blood by Automated coun High 4.0-11.0 [facility] Lymphocytes Auto (Bld) [#/Vo l]on 06-29-2024 Lymphocytes (Bld) [#/Vol] Lymphocytes [#/volume] in Blood by Automated count 1.2-3.8 [facility] Lymphocytes/100 WBC Auto (Bl d)on 06-29-2024 Lymphocytes/100 WBC (Bld) Lymphocytes/100 leukocytes in Blood by Automated count 20.5-60.0 [facility] MCH Auto (RBC) [Entitic mass ]on 06-29-2024 MCH (RBC) [Entitic mass] MCH [Entitic mass] by Automated count 26.7-34.0 [facility] MCHC Auto (RBC) [Mass/Vol]on 06-29-2024 MCHC (RBC) [Mass/Vol] MCHC [Mass/volume] by Automated count 29.9-35.2 [facility] MCV Auto (RBC) [Entitic vol] on 06-29-2024 MCV (RBC) [Entitic vol] MCV [Entitic vol ume] by Automated count 81.0-99.0 [facility] Monocytes Auto (Bld) [#/Vol] on 06-29-2024 Monocytes (Bld) [#/Vol] Automated blood monocyte count 0.3-0.8 [facility] Monocytes/100 WBC Auto (Bld) on 06-29-2024 Monocytes/100 WBC (Bld) Automated monocyte % 1. 7-12.0 [facility] Neutrophils Auto (Bld) [#/Vo l]on 06-29-2024 Neutrophils (Bld) [#/Vol] Neutrophils [#/volume] in Blood by Automated count High 1.4-6.5 [facility] Neutrophils/100 WBC Auto (Bl d)on 06-29-2024 Neutrophils/100 WBC (Bld) Automated neutrophil % 43.0-75.0 [facility] No Panel Informationon 06-29 C-Reactive Protein, Quantitative 0.74 mg/dL High <=0.50 [facility] Eosinophils # (Auto) 0.2 10 3/uL 0.0-0.7 [facility] Immature Granulocyte # (Auto) 0.03 10 3/uL 0.00-0.03 [facility] Protein Electrophoresis M-Manpreet Not Observed g/dL Not Observed [facility] Protein Electrophoresis Note Comment . [facility] Comment on above: Protein electrophore sis scan will follow via computer,mail, or merchandise flow manager delivery.Performed at: [facility] [place] [id number] Director: Cassius Zhong PhD, Phone: [phone] Platelet mean volume Auto (B ld) [Entitic vol]on 06-29-2024 Platelet mean volume (Bld) [Entitic vol] Platelet mean volume [Entitic volume] in Blood by Automated count 9.5-13.5 [facility] Platelets Auto (Bld) [#/Vol] on 06-29-2024 Platelets (Bld) [#/Vol] Platelets [#/vol ume] in Blood by Automated count 150-450 [facility] Protein [Mass/volume] in Ser um or Plasmaon 06-29-2024 Protein [Mass/Vol] Protein [Mass/volume ] in Serum or Plasma 6.0-8.5 [facility] RBC Auto (Bld) [#/Vol]on RBC (Bld) [#/Vol] Erythrocytes [#/volu me] in Blood by Automated count 4.20-5.40 [facility] Serum globulin measurement ( mass/volume)on 06-29-2024 Globulin (S) [Mass/Vol] Serum globulin measurement (mass/volume) 2.2-3.9 [facility] Serum or plasma albumin/glob ulin mass ratioon 06-29-2024 Albumin/Globulin [Mass ratio] Serum or plasma albumin/globulin mass ratio 0.7-1.7 [facility] Serum or plasma alpha 1 glob ulin measurement by electrophoresis (mass/volume)on 06-29-2024 Alpha 1 globulin Elph [Mass/Vol] Serum or plasma alpha 1 globulin measurement by electrophoresis (mass/volume) 0.0-0.4 [facility] Serum or plasma alpha 2 glob ulin measurement by electrophoresis (mass/volume)on 06-29-2024 Alpha 2 globulin Elph [Mass/Vol] Serum or plasma alpha 2 globulin measurement by electrophoresis (mass/volume) 0.4-1.0 [facility] Serum or plasma beta globuli n measurement by electrophoresis (mass/volume)on 06-29-2024 Beta globulin Elph [Mass/Vol] Serum or plasma beta globulin measurement by electrophoresis (mass/volume) 0.7-1.3 [facility] Serum or plasma gamma globul in measurement by electrophoresis (mass/volume)on 06-29-2024 Gamma globulin Elph [Mass/Vol] Serum or plasma gamma globulin measurement by electrophoresis (mass/volume) 0.4-1.8 [facility] Serum or plasma immunoelectr ophoresis interpretationon 06-29-2024 Interpretation IEP [Interp] Serum or plasma immunoelectrophoresis interpretation . [facility] Comment on above: No monoclonality det ected. Laboratory - Chemistry and C hemistry - challengeon 06-25-2024 Bilirubin Ql (U) 0 [facility] Glucose (U) [Mass/Vol] 0 mg/dL [facility] Ketones Ql (U) 0 [facility] pH (U) 5.0 [pH] [facility] Specific gravity (U) [Rel density] 1.020 [facility] Urobilinogen (U) [Mass/Vol] 0.2 mg/dL [facility] Laboratory - Specimen inform ationon 06-25-2024 Appearance (U) cloudy [facility] Color (U) yellow [facility] Laboratory - Urinalysison Leukocyte esterase Test strip Ql (U) 0 [facility] Nitrite Ql (U) Negative [facility] Protein Ql (U) Trace [facility] No Panel Informationon 06-25 Urine Occult Blood 0 [facility] Urine Cultureon 06-25-2024 Bacteria identified Cx Nom (U) 30,000 colonies/ml mixed bacterial skin contaminants 2 Days PERFORMED BY: [place] [address] PATHOLOGIST EHS MANAGER NESHA MAIER M.D. Normal [facility] Comment on above: Performed By: #### C UU #### [facility] [address] Urine cultureOrdered By: Keesha Marc on 06-25-2024 Bacteria identified Cx Nom (U) Urine culture [facility] Basophils Auto (Bld) [#/Vol] on 06-15-2024 Basophils (Bld) [#/Vol] 0.1 10 3/uL 0.0-0.1 [facility] Basophils (Bld) [#/Vol] Automated basoph il count 0.0-0.1 [facility] Basophils/100 WBC Auto (Bld) on 06-15-2024 Basophils/100 WBC (Bld) 0.7 % 0.2-2.0 [facility] Basophils/100 WBC (Bld) Automated basophil % 0. 2-2.0 [facility] Chlamydia trachomatis DNA [P resence] in Specimen by SURI with probe detectionOrdered By: Casandra Hassan on 06-15-2024 C. trachomatis DNA SURI+probe Ql (Unsp spec) Negative Negative [facility] C. trachomatis DNA SURI+probe Ql (Unsp spec) Chlamydia trachomatis DNA [Presence] in Specimen by SURI with probe detection Negative [facility] Chlamydia/GC/Trich NAAon Chlamydia Trachomotis, SURI Negative Normal Negative [facility] Comment on above: Performed By: #### C UU #### [facility] [address] [place] [address] #### GCCHLAMTRI #### [facility] , Neisseria Gonorrhoeae, SURI Negative Normal Negative [facility] Comment on above: Performed By: #### C UU #### [facility] [address] #### GCCHLAMTRI #### [facility] , Trichomonas SURI Negative Normal Negative [facility] Comment on above: Result Comment: Perf ormed at: =G - [facility] [address] [id number] Production Scheduler: Monse Cardona MD, Phone: [phone] PERFORMED BY: [place] [address] PATHOLOGIST EHS MANAGER NESHA MAIER M.D. Performed By: #### C UU #### [facility] [address] [place] [address] #### GCCHLAMTRI #### [facility] , Eosinophils/100 WBC Auto (Bl d)on 06-15-2024 Eosinophils/100 WBC (Bld) 1.1 % 0.9-7.0 [facility] Eosinophils/100 WBC (Bld) Automated eosinophil % 0.9-7.0 [facility] Erythrocyte distribution wid th Auto (RBC) [Ratio]on 06-15-2024 Erythrocyte distribution width (RBC) [Ratio] 16.4 % High 11.0-15.0 [facility] Erythrocyte distribution width (RBC) [Ratio] Erythrocyte distribution width [Ratio] by Automated count High 11.0-15.0 [facility] Estimated glomerular filtrat ion rate (GFR) non- Americanon 06-15-2024 GFR/1.73 sq M.predicted among non-blacks MDRD (S/P/Bld) [Vol rate/Area] mL/min/{1.73_m2} >=60 mL/min/1.7 3m 2 [facility] GFR/1.73 sq M.predicted among non-blacks MDRD (S/P/Bld) [Vol rate/Area] Estimated glomerular filtration rate (GFR) non- >=60 mL/min/1.7 3m 2 [facility] Globulin Calc (S) [Mass/Vol] on 06-15-2024 Globulin (S) [Mass/Vol] 4.1 g/dL [facility] Globulin (S) [Mass/Vol] Serum globulin measurement by calculation (mass/volume) [facility] HCG ( test) IAClaudiarapi d Ql (U)on 06-15-2024 HCG ( test) Ql (U) Negative NEGATIVE [facility] HCG ( test) Ql (U) Urine human chorionic gonadotropin (hCG) detection by immunoassay NEGATIVE [facility] Hematocrit Auto (Bld) [Volum e fraction]on 06-15-2024 Hematocrit (Bld) [Volume fraction] 42.5 % 36.0-48.0 [facility] Hematocrit (Bld) [Volume fraction] Hematocrit [Volume Fraction] of Blood by Automated count 36.0-48.0 [facility] Hemoglobin [Mass/volume] in Bloodon 06-15-2024 Hemoglobin (Bld) [Mass/Vol] 13.6 g/dL 12.0-16.0 [facility] Hemoglobin (Bld) [Mass/Vol] Hemoglobin [Mass/volume] in Blood 12.0-16.0 [facility] Laboratory - Chemistry and C hemistry - challengeon 06-15-2024 Bilirubin Ql (U) Negative NEGATIVE [facility] Glucose (U) [Mass/Vol] Negative NEGATIVE [facility] Ketones Ql (U) Negative NEGATIVE [facility] pH (U) 6.0 [pH] 5.0-9.0 [facility] Specific gravity (U) [Rel density] 1.025 1.005-1.02 5 [facility] Urobilinogen Qn (U) 0.2 {Tamiko'U}/dL 0.2-1.0 [facility] Albumin [Mass/Vol] 3.6 g/dL 3.4-5.0 [facility] ALP [Catalytic activity/Vol] 76 U/L 46-116 [facility] ALT [Catalytic activity/Vol] 46 U/L 14-59 [facility] AST [Catalytic activity/Vol] 29 U/L 15-37 [facility] Bilirubin [Mass/Vol] 0.4 mg/dL 0.2-1.0 [facility] Calcium [Mass/Vol] 9.5 mg/dL 8.5-10.1 [facility] Chloride [Moles/Vol] 103 mmol/L 98-107 [facility] CO2 [Moles/Vol] 26.4 mmol/L 21.0-32.0 [facility] Creatinine [Mass/Vol] 0.83 mg/dL 0.55-1.02 [facility] GFR/1.73 sq M.predicted MDRD (S/P/Bld) [Vol rate/Area] mL/min/{1.73_m2} >=60 mL/min/1.7 3m 2 [facility] Glucose [Mass/Vol] 102 mg/dL 74-106 [facility] Lactate [Moles/Vol] 1.9 mmol/L 0.4-2.0 [facility] Lipase [Catalytic activity/Vol] 32.0 U/L 16.0-77.0 [facility] Potassium [Moles/Vol] 3.9 mmol/L 3.5-5.1 [facility] Protein [Mass/Vol] 7.7 g/dL 6.4-8.2 [facility] Sodium [Moles/Vol] 139 mmol/L 136-145 [facility] Urea nitrogen [Mass/Vol] 9.0 mg/dL 7.0-18.0 [facility] Urea nitrogen/Creatinine [Mass ratio] 10.8 mg/mg [facility] Laboratory - Hematology and Cell countson 06-15-2024 Immature granulocytes/100 WBC (Bld) 0.2 % 0.0-0.5 [facility] Laboratory - Microbiology an d Antimicrobial susceptibilityOrdered By: Casandra Hassan on 06-15-2024 Bacteria identified Cx Nom (U) Escherichia coli (ESBL) Abnormal [facility] Laboratory - Specimen inform ationon 06-15-2024 Appearance (U) CLEAR CLEAR [facility] Color (U) LT. YELLOW YELLOW [facility] Laboratory - Urinalysison Leukocyte esterase Test strip Ql (U) TRACE Abnormal NEGATIVE [facility] Mucus Ql (Urine sed) TRACE Abnormal NONE SEEN [facility] Nitrite Ql (U) Positive Abnormal NEGATIVE [facility] Protein Ql (U) >=300 mg/dL Abnormal NEG/TRACE [facility] Leukocytes [#/volume] correc carmelita for nucleated erythrocytes in Blood by Automated counon 06-15-2024 WBC corrected for nucl RBC Auto (Bld) [#/Vol] 12.7 10 3/uL High 4.0-11.0 [facility] WBC corrected for nucl RBC Auto (Bld) [#/Vol] Leukocytes [#/volume] corrected for nucleated erythrocytes in Blood by Automated coun High 4.0-11.0 [facility] Lymphocytes Auto (Bld) [#/Vo l]on 06-15-2024 Lymphocytes (Bld) [#/Vol] 2.9 10 3/uL 1.2-3.8 [facility] Lymphocytes (Bld) [#/Vol] Lymphocytes [#/volume] in Blood by Automated count 1.2-3.8 [facility] Lymphocytes/100 WBC Auto (Bl d)on 06-15-2024 Lymphocytes/100 WBC (Bld) 23.0 % 20.5-60.0 [facility] Lymphocytes/100 WBC (Bld) Lymphocytes/100 leukocytes in Blood by Automated count 20.5-60.0 [facility] MCH Auto (RBC) [Entitic mass ]on 06-15-2024 MCH (RBC) [Entitic mass] 26.7 pg 26.7-34.0 [facility] MCH (RBC) [Entitic mass] MCH [Entitic mass] by Automated count 26.7-34.0 [facility] MCHC Auto (RBC) [Mass/Vol]on 06-15-2024 MCHC (RBC) [Mass/Vol] 32.0 g/dL 29.9-35.2 [facility] MCHC (RBC) [Mass/Vol] MCHC [Mass/volume] by Automated count 29.9-35.2 [facility] MCV Auto (RBC) [Entitic vol] on 06-15-2024 MCV (RBC) [Entitic vol] 83.5 fL 81.0-99.0 [facility] MCV (RBC) [Entitic vol] MCV [Entitic vol ume] by Automated count 81.0-99.0 [facility] Monocytes Auto (Bld) [#/Vol] on 06-15-2024 Monocytes (Bld) [#/Vol] 0.6 10 3/uL 0.3-0.8 [facility] Monocytes (Bld) [#/Vol] Automated blood monocyte count 0.3-0.8 [facility] Monocytes/100 WBC Auto (Bld) on 06-15-2024 Monocytes/100 WBC (Bld) 4.9 % 1.7-12.0 [facility] Monocytes/100 WBC (Bld) Automated monocyte % 1. 7-12.0 [facility] Neisseria gonorrhoeae DNA [P resence] in Specimen by SURI with probe detectionOrdered By: Casandra Hassan on 06-15-2024 N. gonorrhoeae DNA SURI+probe Ql (Unsp spec) Negative Negative [facility] N. gonorrhoeae DNA SURI+probe Ql (Unsp spec) Neisseria gonorrhoeae DNA [Presence] in Specimen by SURI with probe detection Negative [facility] Neutrophils Auto (Bld) [#/Vo l]on 06-15-2024 Neutrophils (Bld) [#/Vol] 8.9 10 3/uL High 1.4-6.5 [facility] Neutrophils (Bld) [#/Vol] Neutrophils [#/volume] in Blood by Automated count High 1.4-6.5 [facility] Neutrophils/100 WBC Auto (Bl d)on 06-15-2024 Neutrophils/100 WBC (Bld) 70.1 % 43.0-75.0 [facility] Neutrophils/100 WBC (Bld) Automated neutrophil % 43.0-75.0 [facility] No Panel Informationon 06-15 Miscellaneous Test Comment See comment [facility] Comment on above: Specimen Source: UCC - Urine,Clean Catch - Urine CC - 200.100 Urine Bacteria SMALL #/HPF Abnormal NONE SEEN [facility] Urine Culture Reflexed YES [facility] Urine Culture Result 1 \R\ Urine Culture , Routine\R\ Organism: Gram negative jus : [facility] Urine Microscopic Review YES [facility] Urine Occult Blood MODERATE Abnormal NEGATIVE [facility] Urine Other Casts NONE SEEN #/LPF NONE SEEN [facility] Urine Other Crystals None Seen #/HPF None Seen [facility] Urine RBC 10-20 #/HPF Abnormal 0-2 [facility] Urine Squamous Epithelial Cells FEW #/LPF Abnormal NONE/RARE [facility] Urine WBC 20-50 #/HPF Abnormal NONE SEEN [facility] Eosinophils # (Auto) 0.1 10 3/uL 0.0-0.7 [facility] Immature Granulocyte # (Auto) 0.03 10 3/uL 0.00-0.03 [facility] Platelet mean volume Auto (B ld) [Entitic vol]on 06-15-2024 Platelet mean volume (Bld) [Entitic vol] 10.0 fL 9.-13.5 [facility] Platelet mean volume (Bld) [Entitic vol] Platelet mean volume [Entitic volume] in Blood by Automated count 9.5-13.5 [facility] Platelets Auto (Bld) [#/Vol] on 06-15-2024 Platelets (Bld) [#/Vol] 308 10 3/uL 150-450 [facility] Platelets (Bld) [#/Vol] Platelets [#/vol ume] in Blood by Automated count 150-450 [facility] RBC Auto (Bld) [#/Vol]on RBC (Bld) [#/Vol] 5.09 10 6/uL 4.20-5.40 [facility] RBC (Bld) [#/Vol] Erythrocytes [#/volu me] in Blood by Automated count 4.20-5.40 [facility] Serum or plasma albumin/glob ulin mass ratioon 06-15-2024 Albumin/Globulin [Mass ratio] 0.9 {ratio} [facility] Albumin/Globulin [Mass ratio] Serum or plasma albumin/globulin mass ratio [facility] Serum or plasma anion gap de terminationon 06-15-2024 Anion gap [Moles/Vol] 13.5 mmol/L [facility] Anion gap [Moles/Vol] Serum or plasma an ion gap determination [facility] Trichomonas vaginalis DNA [P resence] in Specimen by SURI with probe detectionOrdered By: Casandra Hassan on 06-15-2024 T. vaginalis DNA SURI+probe Ql (Unsp spec) Negative Negative [facility] Comment on above: Performed at: =G - [address] [id number] Director: Monse Cardona MD, Phone: [phone] T. vaginalis DNA SURI+probe Ql (Unsp spec) Trichomonas vaginalis DNA [Presence] in Specimen by SURI with probe detection Negative [facility] Comment on above: Performed at: =G - [address] [id number] Director: Monse Cardona MD, Phone: [phone] Urine Cultureon 06-15-2024 Bacteria identified Cx Nom (U) ORGANISM: Escherichia coli (ESBL) (O:ESCCOLESBL) [place] Count >100,000 Aerobic RENATE Charge (NMIC56) -- [...] RESISTANT TO ALL B-LACTAM DRUGS. PERFORMED BY: [place] [address] PATHOLOGIST EHS MANAGER NESHA MAIER M.D. Normal [facility] Comment on above: Performed By: #### C UU #### [address] #### GCCHLAMTRI #### [facility] , Urine cultureOrdered By: Eulalio Hassan on 06-15-2024 Bacteria identified Cx Nom (U) Abnormal [facility] Iron binding capacity [Mass/ volume] in Serum or Plasmaon 06-07-2024 Iron binding capacity [Mass/Vol] 411.0 ug/dL 250.0-450. 0 [facility] Iron binding capacity [Mass/Vol] Iron binding capacity [Mass/volume] in Serum or Plasma 250.0-450. 0 [facility] Iron saturation [Mass Fracti on] in Serum or Plasmaon 06-07-2024 Iron saturation [Mass fraction] 13.4 % [facility] Iron saturation [Mass fraction] Iron saturation [Mass Fraction] in Serum or Plasma [facility] Laboratory - Chemistry and C hemistry - challengeon 06-07-2024 Iron [Mass/Vol] 55.0 ug/dL 50.0-170.0 [facility] Iron binding capacity [Mass/ volume] in Serum or Plasmaon 04-21-2024 Iron binding capacity [Mass/Vol] 495.0 ug/dL High 250.0-450. 0 [facility] Iron binding capacity [Mass/Vol] Iron binding capacity [Mass/volume] in Serum or Plasma High 250.0-450. 0 [facility] Iron saturation [Mass Fracti on] in Serum or Plasmaon 04-21-2024 Iron saturation [Mass fraction] 15.4 % [facility] Iron saturation [Mass fraction] Iron saturation [Mass Fraction] in Serum or Plasma [facility] Laboratory - Chemistry and C hemistry - challengeon 04-21-2024 Cobalamin (Vitamin B12) [Mass/Vol] 815 pg/mL [id number] [facility] Comment on above: Performed at: [address] [id number] Director: Cassius Zhong PhD, Phone: [phone] Iron [Mass/Vol] 76.0 ug/dL 50.0-170.0 [facility] TSH Qn 2.211 m[IU]/L 0.358-3.74 0 [facility] Basophils Auto (Bld) [#/Vol] on 04-12-2024 Basophils (Bld) [#/Vol] 0.1 10 3/uL 0.0-0.1 [facility] Basophils (Bld) [#/Vol] Automated basoph il count 0.0-0.1 [facility] Basophils/100 WBC Auto (Bld) on 04-12-2024 Basophils/100 WBC (Bld) 0.6 % 0.2-2.0 [facility] Basophils/100 WBC (Bld) Automated basophil % 0. 2-2.0 [facility] Buprenorphine [Presence] in Urineon 04-12-2024 Buprenorphine Ql (U) Negative NEGATIVE [facility] Comment on above: DRUG CLASS TEST SYST EM CUT-OFF CONCENTRATIONS ARE ASFOLLOWS:AMP (Amphetamine): 500 ng/mLBAR (Barbiturates): 200 ng/mLBZO (Benzodiazepines): 150 ng/mLBUP (Buprenorphine): 10 ng/mLCOC (Cocaine): 150 ng/mLmAMP (Methamphetamine): 500 ng/mLMTD (Methadone): 200 ng/mLOPI (Opiates): 100 ng/mLOXY (Oxycodone): 100 ng/mLPCP (Phencyclidine): 25 ng/mLTHC (Cannabinoids): 50 ng/mLTCA (Trycyclic Antidepressants): 300 ng/mL Buprenorphine Ql (U) Buprenorphine [Presence] in Urine NEGATIVE [facility] Comment on above: DRUG CLASS TEST SYST EM CUT-OFF CONCENTRATIONS ARE ASFOLLOWS:AMP (Amphetamine): 500 ng/mLBAR (Barbiturates): 200 ng/mLBZO (Benzodiazepines): 150 ng/mLBUP (Buprenorphine): 10 ng/mLCOC (Cocaine): 150 ng/mLmAMP (Methamphetamine): 500 ng/mLMTD (Methadone): 200 ng/mLOPI (Opiates): 100 ng/mLOXY (Oxycodone): 100 ng/mLPCP (Phencyclidine): 25 ng/mLTHC (Cannabinoids): 50 ng/mLTCA (Trycyclic Antidepressants): 300 ng/mL Eosinophils/100 WBC Auto (Bl d)on 04-12-2024 Eosinophils/100 WBC (Bld) 1.0 % 0.9-7.0 [facility] Eosinophils/100 WBC (Bld) Automated eosinophil % 0.9-7.0 [facility] Erythrocyte distribution wid th Auto (RBC) [Ratio]on 04-12-2024 Erythrocyte distribution width (RBC) [Ratio] 17.4 % High 11.0-15.0 [facility] Erythrocyte distribution width (RBC) [Ratio] Erythrocyte distribution width [Ratio] by Automated count High 11.0-15.0 [facility] Estimated glomerular filtrat ion rate (GFR) non- Americanon 04-12-2024 GFR/1.73 sq M.predicted among non-blacks MDRD (S/P/Bld) [Vol rate/Area] mL/min/{1.73_m2} >=60 [facility] GFR/1.73 sq M.predicted among non-blacks MDRD (S/P/Bld) [Vol rate/Area] Estimated glomerular filtration rate (GFR) non- >=60 [facility] Globulin Calc (S) [Mass/Vol] on 04-12-2024 Globulin (S) [Mass/Vol] 4.1 g/dL F [facility] Globulin (S) [Mass/Vol] Serum globulin measurement by calculation (mass/volume) [facility] HCG ( test) Bello mejia Ql (U)on 04-12-2024 HCG ( test) Ql (U) Negative NEGATIVE [facility] HCG ( test) Ql (U) Urine human chorionic gonadotropin (hCG) detection by immunoassay NEGATIVE [facility] Hematocrit Auto (Bld) [Volum e fraction]on 04-12-2024 Hematocrit (Bld) [Volume fraction] 37.9 % 36.0-48.0 [facility] Hematocrit (Bld) [Volume fraction] Hematocrit [Volume Fraction] of Blood by Automated count 36.0-48.0 [facility] Hemoglobin [Mass/volume] in Bloodon 04-12-2024 Hemoglobin (Bld) [Mass/Vol] 11.6 g/dL Low 12.0-16.0 [facility] Hemoglobin (Bld) [Mass/Vol] Hemoglobin [Mass/volume] in Blood Low 12.0-16.0 [facility] Laboratory - Chemistry and C hemistry - challengeon 04-12-2024 Albumin [Mass/Vol] 3.3 g/dL Low 3.4-5.0 [facility] ALP [Catalytic activity/Vol] 75 U/L 46-116 [facility] ALT [Catalytic activity/Vol] 36 U/L 14-59 [facility] AST [Catalytic activity/Vol] 19 U/L 15-37 [facility] Bilirubin [Mass/Vol] 0.3 mg/dL 0.2-1.0 [facility] Calcium [Mass/Vol] 8.6 mg/dL 8.5-10.1 [facility] Chloride [Moles/Vol] 101 mmol/L 98-107 [facility] CO2 [Moles/Vol] 28.7 mmol/L 21.0-32.0 [facility] Creatinine [Mass/Vol] 0.70 mg/dL 0.55-1.02 [facility] GFR/1.73 sq M.predicted MDRD (S/P/Bld) [Vol rate/Area] mL/min/{1.73_m2} >=60 [facility] Glucose [Mass/Vol] 103 mg/dL 74-106 [facility] Potassium [Moles/Vol] 3.7 mmol/L 3.5-5.1 [facility] Protein [Mass/Vol] 7.4 g/dL 6.4-8.2 [facility] Sodium [Moles/Vol] 136 mmol/L 136-145 [facility] Urea nitrogen [Mass/Vol] 10.0 mg/dL 7.0-18.0 [facility] Urea nitrogen/Creatinine [Mass ratio] 14.3 mg/mg [facility] Bilirubin Ql (U) Negative NEGATIVE [facility] Glucose (U) [Mass/Vol] Negative NEGATIVE [facility] Ketones Ql (U) Negative NEGATIVE [facility] pH (U) 6.0 [pH] 5.0-9.0 [facility] Specific gravity (U) [Rel density] >=1.030 Abnormal 1.005-1.02 5 [facility] Urobilinogen Qn (U) 0.2 {Tamiko'U}/dL 0.2-1.0 [facility] Laboratory - Drug toxicology on 04-12-2024 Amphetamines Ql (U) Negative NEGATIVE [facility] Benzodiazepines Ql (U) Negative NEGATIVE [facility] Cocaine Ql (U) Negative NEGATIVE [facility] Opiates Ql (U) Negative NEGATIVE [facility] Phencyclidine Ql (U) Negative NEGATIVE [facility] Laboratory - Hematology and Cell countson 04-12-2024 Immature granulocytes/100 WBC (Bld) 0.3 % 0.0-0.5 [facility] Laboratory - Specimen inform ationon 04-12-2024 Appearance (U) CLEAR CLEAR [facility] Color (U) YELLOW YELLOW [facility] Laboratory - Urinalysison Leukocyte esterase Test strip Ql (U) Negative NEGATIVE [facility] Mucus Ql (Urine sed) TRACE Abnormal NONE SEEN [facility] Nitrite Ql (U) Negative NEGATIVE [facility] [facility]l (U[facility] Negative NEG/TRACE [facility] Leukocytes [#/volume] correc carmelita for nucleated erythrocytes in Blood by Automated counon 04-12-2024 WBC corrected for nucl RBC Auto (Bld) [#/Vol] 9.9 10 3/uL 4.0-11.0 [facility] WBC corrected for nucl RBC Auto (Bld) [#/Vol] Leukocytes [#/volume] corrected for nucleated erythrocytes in Blood by Automated coun 4.0-11.0 [facility] Lymphocytes Auto (Bld) [#/Vo l]on 04-12-2024 Lymphocytes (Bld) [#/Vol] 3.5 10 3/uL 1.2-3.8 [facility] Lymphocytes (Bld) [#/Vol] Lymphocytes [#/volume] in Blood by Automated count 1.2-3.8 [facility] Lymphocytes/100 WBC Auto (Bl d)on 04-12-2024 Lymphocytes/100 WBC (Bld) 35.5 % 20.5-60.0 [facility] Lymphocytes/100 WBC (Bld) Lymphocytes/100 leukocytes in Blood by Automated count 20.5-60.0 [facility] MCH Auto (RBC) [Entitic mass ]on 04-12-2024 MCH (RBC) [Entitic mass] 24.5 pg Low 26.7-34.0 [facility] MCH (RBC) [Entitic mass] MCH [Entitic mass] by Automated count Low 26.7-34.0 [facility] MCHC Auto (RBC) [Mass/Vol]on 04-12-2024 MCHC (RBC) [Mass/Vol] 30.6 g/dL 29.9-35.2 [facility] MCHC (RBC) [Mass/Vol] MCHC [Mass/volume] by Automated count 29.9-35.2 [facility] MCV Auto (RBC) [Entitic vol] on 04-12-2024 MCV (RBC) [Entitic vol] 80.1 fL Low 81.0-99.0 [facility] MCV (RBC) [Entitic vol] MCV [Entitic vol ume] by Automated count Low 81.0-99.0 [facility] Methadone [Presence] in Urin e by Screen methodon 04-12-2024 Methadone Screen Ql (U) Negative NEGATIVE [facility] Methadone Screen Ql (U) Methadone [Prese nce] in Urine by Screen method NEGATIVE [facility] Monocytes Auto (Bld) [#/Vol] on 04-12-2024 Monocytes (Bld) [#/Vol] 0.5 10 3/uL 0.3-0.8 [facility] Monocytes (Bld) [#/Vol] Automated blood monocyte count 0.3-0.8 [facility] Monocytes/100 WBC Auto (Bld) on 04-12-2024 Monocytes/100 WBC (Bld) 4.7 % 1.7-12.0 [facility] Monocytes/100 WBC (Bld) Automated monocyte % 1. 7-12.0 [facility] Neutrophils Auto (Bld) [#/Vo l]on 04-12-2024 Neutrophils (Bld) [#/Vol] 5.7 10 3/uL 1.4-6.5 [facility] Neutrophils (Bld) [#/Vol] Neutrophils [#/volume] in Blood by Automated count 1.4-6.5 [facility] Neutrophils/100 WBC Auto (Bl d)on 04-12-2024 Neutrophils/100 WBC (Bld) 57.9 % 43.0-75.0 [facility] Neutrophils/100 WBC (Bld) Automated neutrophil % 43.0-75.0 [facility] No Panel Informationon 04-12 Acetaminophen Level <2.0 ug/mL Low 10.0-30.0 [facility] Eosinophils # (Auto) 0.1 10 3/uL 0.0-0.7 [facility] Ethyl Alcohol Level <3 mg/dL [facility] Comment on above: NOTE: 80 mg/dl is th e legal limit for a blood alcohol level Immature Granulocyte # (Auto) 0.03 10 3/uL 0.00-0.03 [facility] Salicylates Level <2.8 mg/dL <=19.9 [facility] Urine Bacteria SMALL #/HPF Abnormal NONE SEEN [facility] Urine Barbiturates Screen Negative NEGATIVE [facility] Urine Culture Reflexed YES [facility] Urine Marijuana (THC) Screen Negative NEGATIVE [facility] Urine Methamphetamines Screen Negative NEGATIVE [facility] Urine Occult Blood Negative NEGATIVE [facility] Urine Other Casts NONE SEEN #/LPF NONE SEEN [facility] Urine Other Crystals None Seen #/HPF None Seen [facility] Urine RBC 0-2 #/HPF 0-2 [facility] Urine Squamous Epithelial Cells FEW #/LPF Abnormal NONE/RARE [facility] Urine Transitional Epithelial Cells RARE #/LPF Abnormal NONE SEEN [facility] Urine WBC 2-5 #/HPF Abnormal NONE SEEN [facility] Platelet mean volume Auto (B ld) [Entitic vol]on 04-12-2024 Platelet mean volume (Bld) [Entitic vol] 10.2 fL 9.5-13.5 [facility] Platelet mean volume (Bld) [Entitic vol] Platelet mean volume [Entitic volume] in Blood by Automated count 9.5-13.5 [facility] Platelets Auto (Bld) [#/Vol] on 04-12-2024 Platelets (Bld) [#/Vol] 299 10 3/uL 150-450 [facility] Platelets (Bld) [#/Vol] Platelets [#/vol ume] in Blood by Automated count 150-450 [facility] RBC Auto (Bld) [#/Vol]on RBC (Bld) [#/Vol] 4.73 10 6/uL 4.20-5.40 [facility] RBC (Bld) [#/Vol] Erythrocytes [#/volu me] in Blood by Automated count 4.20-5.40 [facility] Serum or plasma albumin/glob ulin mass ratioon 04-12-2024 Albumin/Globulin [Mass ratio] 0.8 {ratio} [facility] Albumin/Globulin [Mass ratio] Serum or plasma albumin/globulin mass ratio [facility] Serum or plasma anion gap de terminationon 04-12-2024 Anion gap [Moles/Vol] 10.0 mmol/L [facility] Anion gap [Moles/Vol] Serum or plasma an ion gap determination [facility] Urine tricyclic antidepressa nt measurementon 04-12-2024 Tricyclic antidepressants (U) [Mass/Vol] Negative NEGATIVE [facility] Tricyclic antidepressants (U) [Mass/Vol] Urine tricyclic antidepressant measurement NEGATIVE [facility] oxyCODONE+oxyMORphone [Prese nce] in Urine by Screen methodon 04-12-2024 oxyCODONE+oxyMORphone Screen Ql (U) Negative NEGATIVE [facility] oxyCODONE+oxyMORphone Screen Ql (U) oxyCODONE+oxyMORphone [Presence] in Urine by Screen method NEGATIVE [facility] Basophils Auto (Bld) [#/Vol] on 11-03-2023 Basophils (Bld) [#/Vol] 0.0 10 3/uL 0.0-0.1 [facility] Basophils/100 WBC Auto (Bld) on 11-03-2023 Basophils/100 WBC (Bld) 0.5 % 0.2-2.0 [facility] Eosinophils/100 WBC Auto (Bl d)on 11-03-2023 Eosinophils/100 WBC (Bld) 1.4 % 0.9-7.0 [facility] Erythrocyte distribution wid th Auto (RBC) [Ratio]on 11-03-2023 Erythrocyte distribution width (RBC) [Ratio] 16.3 % 11.0-15.0 [facility] Estimated glomerular filtrat ion rate (GFR) non- Americanon 11-03-2023 GFR/1.73 sq M.predicted among non-blacks MDRD (S/P/Bld) [Vol rate/Area] mL/min/{1.73_m2} >=60 [facility] Globulin Calc (S) [Mass/Vol] on 11-03-2023 Globulin (S) [Mass/Vol] 4.0 g/dL [facility] Hematocrit Auto (Bld) [Volum e fraction]on 11-03-2023 Hematocrit (Bld) [Volume fraction] 26.1 % 36.0-48.0 [facility] Hemoglobin [Mass/volume] in Bloodon 11-03-2023 Hemoglobin (Bld) [Mass/Vol] 7.8 g/dL 12.0-16.0 [facility] Human papilloma virus 16+18+ 31+33+35+39+45+51+52+56+58+59+66+68 DNA [Presence] in Elina 11-03-2023 HPV 16+18+31+33+35+39+45+51 +52+56+58+59+66+68 DNA Probe+sig amp Ql (Cvx) Negative Negative [facility] Comment on above: This nucleic acid am plification test detects fourteen high-risk HPV types (16,18,31,33,35,39,45,51,52,56,58,59,66,68)without differentiation.Performed at: =G - [facility] [id number] [place], [place] [id number] Director: Monse Cardona MD, Phone: [phone] at: WB - [facility] [id number] [place], [place] [id number] Director: Monse Cardona MD, Phone: [phone] Iron binding capacity [Mass/ volume] in Serum or Plasmaon 11-03-2023 Iron binding capacity [Mass/Vol] 512.0 ug/dL 250.0-450. 0 [facility] Iron saturation [Mass Fracti on] in Serum or Plasmaon 11-03-2023 Iron saturation [Mass fraction] 2.7 % [facility] Laboratory - Chemistry and C hemistry - challengeon 11-03-2023 Albumin [Mass/Vol] 3.1 g/dL 3.4-5.0 [facility] ALP [Catalytic activity/Vol] 63 U/L 46-116 [facility] ALT [Catalytic activity/Vol] 29 U/L 14-59 [facility] AST [Catalytic activity/Vol] 18 U/L 15-37 [facility] Bilirubin [Mass/Vol] 0.2 mg/dL 0.2-1.0 [facility] Calcium [Mass/Vol] 8.7 mg/dL 8.5-10.1 [facility] Chloride [Moles/Vol] 102 mmol/L 98-107 [facility] CO2 [Moles/Vol] 27.6 mmol/L 21.0-32.0 [facility] Creatinine [Mass/Vol] 0.70 mg/dL 0.55-1.02 [facility] Ferritin [Mass/Vol] 6.0 ng/mL 8.0-252.0 [facility] GFR/1.73 sq M.predicted MDRD (S/P/Bld) [Vol rate/Area] mL/min/{1.73_m2} >=60 [facility] Glucose [Mass/Vol] 103 mg/dL 74-106 [facility] Iron [Mass/Vol] 14.0 ug/dL 50.0-170.0 [facility] Potassium [Moles/Vol] 3.8 mmol/L 3.5-5.1 [facility] Protein [Mass/Vol] 7.1 g/dL 6.4-8.2 [facility] Sodium [Moles/Vol] 139 mmol/L 136-145 [facility] Urea nitrogen [Mass/Vol] 11.0 mg/dL 7.0-18.0 [facility] Urea nitrogen/Creatinine [Mass ratio] 15.7 mg/mg [facility] Laboratory - Hematology and Cell countson 11-03-2023 Immature granulocytes/100 WBC (Bld) 0.4 % 0.0-0.5 [facility] Leukocytes [#/volume] correc carmelita for nucleated erythrocytes in Blood by Automated counon 11-03-2023 WBC corrected for nucl RBC Auto (Bld) [#/Vol] 7.4 10 3/uL 4.0-11.0 [facility] Lymphocytes Auto (Bld) [#/Vo l]on 11-03-2023 Lymphocytes (Bld) [#/Vol] 2.5 10 3/uL 1.2-3.8 [facility] Lymphocytes/100 WBC Auto (Bl d)on 11-03-2023 Lymphocytes/100 WBC (Bld) 33.6 % 20.5-60.0 [facility] MCH Auto (RBC) [Entitic mass ]on 11-03-2023 MCH (RBC) [Entitic mass] 24.8 pg 26.7-34.0 [facility] MCHC Auto (RBC) [Mass/Vol]on 11-03-2023 MCHC (RBC) [Mass/Vol] 29.9 g/dL 29.9-35.2 [facility] MCV Auto (RBC) [Entitic vol] on 11-03-2023 MCV (RBC) [Entitic vol] 82.9 fL 81.0-99.0 [facility] Monocytes Auto (Bld) [#/Vol] on 11-03-2023 Monocytes (Bld) [#/Vol] 0.4 10 3/uL 0.3-0.8 [facility] Monocytes/100 WBC Auto (Bld) on 11-03-2023 Monocytes/100 WBC (Bld) 5.6 % 1.7-12.0 [facility] Neutrophils Auto (Bld) [#/Vo l]on 11-03-2023 Neutrophils (Bld) [#/Vol] 4.3 10 3/uL 1.4-6.5 [facility] Neutrophils/100 WBC Auto (Bl d)on 11-03-2023 Neutrophils/100 WBC (Bld) 58.5 % 43.0-75.0 [facility] No Panel Informationon 11-02 Eosinophils # (Auto) 0.1 10 3/uL 0.0-0.7 [facility] Immature Granulocyte # (Auto) 0.03 10 3/uL 0.00-0.03 [facility] HPV High Risk Other Comment Note . [facility] Comment on above: TESTS RESULT FLAG UN ITS REF RANGE LAB -DIAGNOSIS: 02 NEGATIVE FOR INTRAEPITHELIAL LESION OR MALIGNANCY.Specimen adequacy: 02 Satisfactory for evaluation. Endocervical and/or squamous metaplastic cells (endocervical component) are present.Performed by: Mikhail Escalante, Registered Occupational Therapist (ASCP). 02Note: Note 02 The Pap smear [...] Low,>-Panic High,A-Abnormal,AA-Critical Abnormal ------Performed at:02 WB [facility] [address] [id number] Monse Cardona MD, Reference Lab Test Patient Age Note . [facility] Comment on above: TESTS RESULT FLAG UN ITS REF RANGE LAB - Clinician Provided Cytology Information Source.............Cervix;Endocervix No. of containers..01 ThinPrep VialAge Algo ACOG Elise... 30-65 FLAG LEGEND: L-Low Normal,H-High Normal,LL-Alert Low,HH-Alert High <-Panic Low,>-Panic High,A-Abnormal,AA-Critical Abnormal ------Performed at:01 =G [facility] [place] [address] [place] [address] Monse Cardona MD, Platelet mean volume Auto (B ld) [Entitic vol]on 11-03-2023 Platelet mean volume (Bld) [Entitic vol] 9.6 fL 9.5-13.5 [facility] Platelets Auto (Bld) [#/Vol] on 11-03-2023 Platelets (Bld) [#/Vol] 323 10 3/uL 150-450 [facility] RBC Auto (Bld) [#/Vol]on RBC (Bld) [#/Vol] 3.15 10 6/uL 4.20-5.40 [facility] Serum or plasma albumin/glob ulin mass ratioon 11-03-2023 Albumin/Globulin [Mass ratio] 0.8 {ratio} [facility] Serum or plasma anion gap de terminationon 11-03-2023 Anion gap [Moles/Vol] 13.2 mmol/L [facility] Basophils Auto (Bld) [#/Vol] on 10-30-2023 Basophils (Bld) [#/Vol] 0.0 10 3/uL 0.0-0.1 [facility] Basophils/100 WBC Auto (Bld) on 10-30-2023 Basophils/100 WBC (Bld) 0.6 % 0.2-2.0 [facility] Eosinophils/100 WBC Auto (Bl d)on 10-30-2023 Eosinophils/100 WBC (Bld) 1.2 % 0.9-7.0 [facility] Erythrocyte distribution wid th Auto (RBC) [Ratio]on 10-30-2023 Erythrocyte distribution width (RBC) [Ratio] 16.6 % 11.0-15.0 [facility] Estimated glomerular filtrat ion rate (GFR) non- Americanon 10-30-2023 GFR/1.73 sq M.predicted among non-blacks MDRD (S/P/Bld) [Vol rate/Area] mL/min/{1.73_m2} >=60 [facility] HCG ( test) IA.rapi d Ql (U)on 10-30-2023 HCG ( test) Ql (U) Negative NEGATIVE [facility] Hematocrit Auto (Bld) [Volum e fraction]on 10-30-2023 Hematocrit (Bld) [Volume fraction] 26.6 % 36.0-48.0 [facility] Hemoglobin [Mass/volume] in Bloodon 10-30-2023 Hemoglobin (Bld) [Mass/Vol] 7.9 g/dL 12.0-16.0 [facility] Laboratory - Chemistry and C hemistry - challengeon 10-30-2023 Calcium [Mass/Vol] 8.5 mg/dL 8.5-10.1 [facility] Chloride [Moles/Vol] 101 mmol/L 98-107 [facility] CO2 [Moles/Vol] 28.8 mmol/L 21.0-32.0 [facility] Creatinine [Mass/Vol] 0.62 mg/dL 0.55-1.02 [facility] GFR/1.73 sq M.predicted MDRD (S/P/Bld) [Vol rate/Area] mL/min/{1.73_m2} >=60 [facility] Glucose [Mass/Vol] 104 mg/dL 74-106 [facility] Potassium [Moles/Vol] 4.0 mmol/L 3.5-5.1 [facility] Sodium [Moles/Vol] 137 mmol/L 136-145 [facility] Urea nitrogen [Mass/Vol] 8.0 mg/dL 7.0-18.0 [facility] Urea nitrogen/Creatinine [Mass ratio] 12.9 mg/mg [facility] Laboratory - Hematology and Cell countson 10-30-2023 Immature granulocytes/100 WBC (Bld) 0.4 % 0.0-0.5 [facility] Leukocytes [#/volume] correc carmelita for nucleated erythrocytes in Blood by Automated counon 10-30-2023 WBC corrected for nucl RBC Auto (Bld) [#/Vol] 7.3 10 3/uL 4.0-11.0 [facility] Lymphocytes Auto (Bld) [#/Vo l]on 10-30-2023 Lymphocytes (Bld) [#/Vol] 2.2 10 3/uL 1.2-3.8 [facility] Lymphocytes/100 WBC Auto (Bl d)on 10-30-2023 Lymphocytes/100 WBC (Bld) 30.2 % 20.5-60.0 [facility] MCH Auto (RBC) [Entitic mass ]on 10-30-2023 MCH (RBC) [Entitic mass] 25.0 pg 26.7-34.0 [facility] MCHC Auto (RBC) [Mass/Vol]on 10-30-2023 MCHC (RBC) [Mass/Vol] 29.7 g/dL 29.9-35.2 [facility] MCV Auto (RBC) [Entitic vol] on 10-30-2023 MCV (RBC) [Entitic vol] 84.2 fL 81.0-99.0 [facility] Monocytes Auto (Bld) [#/Vol] on 10-30-2023 Monocytes (Bld) [#/Vol] 0.3 10 3/uL 0.3-0.8 [facility] Monocytes/100 WBC Auto (Bld) on 10-30-2023 Monocytes/100 WBC (Bld) 3.7 % 1.7-12.0 [facility] Neutrophils Auto (Bld) [#/Vo l]on 10-30-2023 Neutrophils (Bld) [#/Vol] 4.6 10 3/uL 1.4-6.5 [facility] Neutrophils/100 WBC Auto (Bl d)on 10-30-2023 Neutrophils/100 WBC (Bld) 63.9 % 43.0-75.0 [facility] No Panel Informationon 10-29 Eosinophils # (Auto) 0.1 10 3/uL 0.0-0.7 [facility] Immature Granulocyte # (Auto) 0.03 10 3/uL 0.00-0.03 [facility] Platelet mean volume Auto (B ld) [Entitic vol]on 10-30-2023 Platelet mean volume (Bld) [Entitic vol] 9.4 fL 9.5-13.5 [facility] Platelets Auto (Bld) [#/Vol] on 10-30-2023 Platelets (Bld) [#/Vol] 264 10 3/uL 150-450 [facility] RBC Auto (Bld) [#/Vol]on RBC (Bld) [#/Vol] 3.16 10 6/uL 4.20-5.40 [facility] Serum or plasma anion gap de terminationon 03-14-2024 Anion gap [Moles/Vol] 11.2 mmol/L [facility] HCG ( test) IA.rapi d Ql (U)on 10-06-2023 HCG ( test) Ql (U) Negative NEGATIVE [facility] COVID + FLU Quick Testingon 07-07-2023 SARS-CoV-2 (COVID-19) RNA SURI+probe Ql (Unsp spec) Negative [facility] [employer] Other COVID + FLU Quick Testing Negative [place] Other Alanine aminotransferase [En zymatic activity/volume] in Serum or PlasmaOrdered By: Celio Mullins on 07-03-2023 ALT [Catalytic activity/Vol] 22 U/L 7-52 [facility] Albumin [Mass/volume] in Ser um or Plasma by Bromocresol green (BCG) dye binding methoOrdered By: Celio Mullins on 07-03-2023 Albumin BCG dye [Mass/Vol] 4.4 g/dL 3.5-5.7 [facility] Alkaline phosphatase [Enzyma tic activity/volume] in Serum or PlasmaOrdered By: Celio Mullins on 07-03-2023 ALP [Catalytic activity/Vol] 68 U/L 34-104 [facility] Aspartate aminotransferase [ Enzymatic activity/volume] in Serum or PlasmaOrdered By: Celio Mullins on 07-03-2023 AST [Catalytic activity/Vol] 18 U/L 13-39 [facility] Bilirubin.total [Mass/volume ] in Serum or PlasmaOrdered By: Celio Mullins on 07-03-2023 Bilirubin [Mass/Vol] 0.4 mg/dL 0.3-1.0 [facility] Calcium [Mass/volume] in Ser um or PlasmaOrdered By: Celio Mullins on 07-03-2023 Calcium [Mass/Vol] 9.4 mg/dL 8.6-10.3 [facility] Carbon dioxide, total [Moles /volume] in Serum or PlasmaOrdered By: Celio Mullins on 07-03-2023 CO2 [Moles/Vol] 30.1 mmol/L 21.0-31.0 [facility] Chloride [Moles/volume] in S marta or PlasmaOrdered By: Celio Mullins on 07-03-2023 Chloride [Moles/Vol] 105 mmol/L 98-107 [facility] Cholesterol [Mass/volume] in Serum or PlasmaOrdered By: Celio Mullins on 07-03-2023 Cholesterol [Mass/Vol] 126 mg/dL 140-200 [facility] Comment on above: Chol less than 200 m g/dl low riskChol 201-239 mg/dl borderline riskChol 240 mg/dl and greater high risk Cholesterol in LDL Calc [Mas s/Vol]Ordered By: Celio Mullins on 07-03-2023 Cholesterol in LDL [Mass/Vol] 69 mg/dL 0-100 [facility] Comment on above: LDL ATP III CLASSIFI CATIONLDL less than 100 mg/dL OptimalLDL 100-129 mg/dL Near or above optimalLDL 130-159 mg/dL Borderline highLDL 160-189 mg/dL HighLDL greater than 189 mg/dL Very high Cholesterol in VLDL Calc [Ma ss/Vol]Ordered By: Celio Mullins on 07-03-2023 Cholesterol in VLDL [Mass/Vol] 18 mg/dL [facility] Creatinine [Mass/volume] in Serum or PlasmaOrdered By: Celio Mullins on 07-03-2023 Creatinine [Mass/Vol] 0.63 mg/dL 0.60-1.20 [facility] Globulin Calc (S) [Mass/Vol] Ordered By: Celio Mullins on 07-03-2023 Globulin (S) [Mass/Vol] 3.1 g/dL [facility] Glucose [Mass/volume] in Ser um or PlasmaOrdered By: Celio Mullins on 07-03-2023 Glucose [Mass/Vol] 97 mg/dL 70-100 [facility] Comment on above: ADA recommended refe rence rangeRandom Glucose Reference Range is dependent on time and content of last meal. Glucose of more than 200 mg/dL in a nonstressed, ambulatory subject supports the diagnosis of Diabetes Mellitus. No Panel InformationOrdered By: Celio Mullins on 07-03-2023 Estimated GFR (CKD-EPI) > 60.0 mL/Min [facility] Creatinine Clearance (Chem N/A [facility] Potassium [Moles/volume] in Serum or PlasmaOrdered By: Celio Mullins on 07-03-2023 Potassium [Moles/Vol] 4.3 mmol/L 3.5-5.1 [facility] Protein [Mass/volume] in Ser um or PlasmaOrdered By: Celio Mullins on 07-03-2023 Protein [Mass/Vol] 7.5 g/dL 6.4-8.9 [facility] Serum or plasma albumin/glob ulin mass ratioOrdered By: Celio Mullins on 07-03-2023 Albumin/Globulin [Mass ratio] 1.4 {ratio} [facility] Serum or plasma anion gap de terminationOrdered By: Celio Mullins on 07-03-2023 Anion gap [Moles/Vol] 10.2 mmol/L 6.0-15.0 [facility] Serum or plasma high density lipoprotein (HDL) cholesterol measurementOrdered By: Celio Mullins on 07-03-2023 Cholesterol in HDL [Mass/Vol] 39 mg/dL 23-92 [facility] Comment on above: HDL CHOL ATP-III CLA SSIFICATION Cardiovascular RiskHDL > or equal to 60 mg/dL LOWHDL < 40 mg/dL HIGH Serum or plasma total choles terol/high density lipoprotein (HDL) cholesterol mass ratOrdered By: Celio Mullins on 07-03-2023 Cholesterol.total/Mali sterol in HDL [Mass ratio] 3.2 {ratio} <5.0 [facility] Sodium [Moles/volume] in Ser um or PlasmaOrdered By: Celio Mullins on 07-03-2023 Sodium [Moles/Vol] 141 mmol/L 136-145 [facility] Triglyceride [Mass/volume] i n Serum or PlasmaOrdered By: Celio Mullins on 07-03-2023 Triglyceride [Mass/Vol] 92 mg/dL 0-149 [facility] Comment on above: TRIG ATP III CLASSIF ICATIONTRIG less than 150 mg/dL NormalTRIG 150-199 mg/dL Borderline highTRIG 200-500 mg/dL High TRIG greater than 500 mg/dL Very highStandard traceable to the Center for Disease Conrtrol and Prevention (CDC) test method. Urea nitrogen [Mass/volume] in Serum or PlasmaOrdered By: Celio Mullins on 07-03-2023 Urea nitrogen [Mass/Vol] 13 mg/dL 7 [facility] Alanine aminotransferase [En zymatic activity/volume] in Serum or PlasmaOrdered By: Celio Mullins on 07-01-2023 ALT [Catalytic activity/Vol] 21 U/L [facility] Albumin [Mass/volume] in Ser um or Plasma by Bromocresol green (BCG) dye binding methoOrdered By: Celio Mullins on 07-01-2023 Albumin BCG dye [Mass/Vol] 4.6 g/dL 3.5-5.7 [facility] Alkaline phosphatase [Enzyma tic activity/volume] in Serum or PlasmaOrdered By: Celio Mullins on 07-01-2023 ALP [Catalytic activity/Vol] 72 U/L 34-104 [facility] Apolipoprotein B [Mass/volum e] in Serum or PlasmaOrdered By: Celio Mullins on 07-01-2023 Apolipoprotein B [Mass/Vol] 83 mg/dL <90 [facility] Comment on above: Desirable < 90 Charissa almanza High 90 - 99 High 100 - 130 Very High >130 ASCVD RISK THERAPEUTIC TARGET CATEGORY APO B (mg/dL) Very High Risk <80 (if extreme risk <70) High Risk <90 Moderate Risk <90Performed at: [facility] [address] [id number] Director: Jeanna Case MD, Phone: [phone] Aspartate aminotransferase [ Enzymatic activity/volume] in Serum or PlasmaOrdered By: Celio Mullins on 07-01-2023 AST [Catalytic activity/Vol] 19 U/L 13-39 [facility] Bilirubin.total [Mass/volume ] in Serum or PlasmaOrdered By: Celio Mullins on 07-01-2023 Bilirubin [Mass/Vol] 0.4 mg/dL 0.3-1.0 [facility] Calcium [Mass/volume] in Ser um or PlasmaOrdered By: Celio Mullins on 07-01-2023 Calcium [Mass/Vol] 9.8 mg/dL 8.6-10.3 [facility] Carbon dioxide, total [Moles /volume] in Serum or PlasmaOrdered By: Celio Mullins on 07-01-2023 CO2 [Moles/Vol] 25.3 mmol/L 21.0-31.0 [facility] Chloride [Moles/volume] in S marta or PlasmaOrdered By: Celio Mullins on 07-01-2023 Chloride [Moles/Vol] 105 mmol/L 98-107 [facility] Creatinine [Mass/volume] in Serum or PlasmaOrdered By: Celio Mullins on 07-01-2023 Creatinine [Mass/Vol] 0.64 mg/dL 0.60-1.20 [facility] Globulin Calc (S) [Mass/Vol] Ordered By: Celio Mullins on 07-01-2023 Globulin (S) [Mass/Vol] 3.2 g/dL [facility] Glucose [Mass/volume] in Ser um or PlasmaOrdered By: Celio Mullins on 07-01-2023 Glucose [Mass/Vol] 95 mg/dL 70-100 [facility] Comment on above: ADA recommended refe [...] from glycated hemoglobin (Bld) [Mass/Vol] 117 mg/dL [facility] Hemoglobin A1c percentageOrd ered By: Celio Mullins on 07-01-2023 HbA1c (Bld) [Mass fraction] 5.7 % 4.3-5.6 [facility] Comment on above: Increased risk for d iabetes: 5.7 - 6.4diabetes: >6.4glycemic control for adults with diabetes: <7.0 No Panel InformationOrdered By: Celio Mullins on 07-01-2023 Estimated GFR (CKD-EPI) > 60.0 mL/Min [facility] Creatinine Clearance (Chem N/A [facility] Potassium [Moles/volume] in Serum or PlasmaOrdered By: Celio Mullins on 07-01-2023 Potassium [Moles/Vol] 3.8 mmol/L 3.5-5.1 [facility] Protein [Mass/volume] in Ser um or PlasmaOrdered By: Celio Mullins on 07-01-2023 Protein [Mass/Vol] 7.8 g/dL 6.4-8.9 [facility] Serum or plasma albumin/glob ulin mass ratioOrdered By: Celio Mullins on 07-01-2023 Albumin/Globulin [Mass ratio] 1.4 {ratio} [facility] Serum or plasma anion gap de terminationOrdered By: Celio Mullins on 07-01-2023 Anion gap [Moles/Vol] 11.5 mmol/L 6.0-15.0 [facility] Serum or plasma lipoprotein a measurement (moles/volume)Ordered By: Celio Mullins on 07-01-2023 Lipoprotein a [Moles/Vol] 13.0 nmol/L <75.0 [facility] Comment on above: Note: Values greater than or equal to 75.0 nmol/L may indicate an independent risk factor for CHD, but must be evaluated with caution when applied to non- populations due to the influence of genetic factors on Lp(a) across ethnicities.Performed at: [facility] [id number] Director: Cassius Zhong PhD, Phone: [phone] Sodium [Moles/volume] in Ser um or PlasmaOrdered By: Celio Mullins on 07-01-2023 Sodium [Moles/Vol] 138 mmol/L 136-145 [facility] Urea nitrogen [Mass/volume] in Serum or PlasmaOrdered By: Celio Mullins on 07-01-2023 Urea nitrogen [Mass/Vol] 16 mg/dL 7-25 [facility] COVID Quick Testingon 2022 Result Negative [facility] Other SARS-CoV-2 (COVID-19) RNA NA A+probe Ql (Resp)on 02-11-2023 SARS-CoV-2 (COVID-19) RNA SURI+probe Ql (Unsp spec) Negative [facility] Other DHEA-SULFATEon 01-01-2023 DHEA-Sulfate 95.3 ug/dL Normal 84.8-378.[address] [facility] Comment on above: Performed By: #### D RIMA #### [facility] [address] [place] [address] Dr. Kaushik Palomares FSHon 01-01-2023 FSH 4.6 mIU/mL Normal [facility] Comment on above: Result Comment: Adul t Female: Follicular phase 3.5 - 12.5 Ovulation phase 4.7 - 21.5 Luteal phase 1.7 - 7.7 Postmenopausal 25.8 - 134.8 Performed By: #### C BC #### [facility] [address] [place] [address] Dr. Kaushik Palomares LUTEINIZING HORMONE (LH)on 01-01-2023 LH 3.5 mIU/mL Normal [facility] Comment on above: Result Comment: Adul t Female: Follicular phase 2.4 - 12.6 Ovulation phase 14.0 - 95.6 Luteal phase 1.0 - 11.4 Postmenopausal 7.7 - 58.5 Performed By: #### L BCL #### [facility] [address] [place] [address] Dr. Kaushik Palomares CBC AUTO DIFFon 12-31-2022 BASO # 0.1 103/ul Normal 0.0-0.[address] [facility] Comment on above: Performed By: #### C BC #### [facility] [address] [place] [address] Dr. Kaushik Palomares Basophils/100 WBC (Bld) 0.8 % Normal 0.2-2.0 [facility] Comment on above: Performed By: #### C BC #### [facility] [address] [place] [address] Dr. Kaushik Palomares EO # 0.1 103/ul Normal 0.0-0.[address] [facility] Comment on above: Performed By: #### C BC #### [facility] [address] [place] [address] Dr. Kaushik Palomares Eosinophils/100 WBC (Bld) 1.7 % Normal 0.9-7.[address] [facility] Comment on above: Performed By: #### C BC #### [facility] [address] [place] [address] Dr. Kaushik Palomares Erythrocyte distribution width (RBC) [Ratio] 12.8 % Normal 11.0-15.[address] [facility] Comment on above: Performed By: #### C BC #### [facility] [address] [place] [address] Dr. Kaushik Palomares Hematocrit (Bld) [Volume fraction] 33.0 % Critically low 36.0-48.[address] [facility] Comment on above: Performed By: #### C BC #### [facility] [address] [place] [address] Dr. Kaushik Palomares Hemoglobin (Bld) [Mass/Vol] 11.0 g/dL Critically low 12.0-16.[address] [facility] Comment on above: Performed By: #### C BC #### [facility] [address] [place] [address] Dr. Kaushik Palomares IG # 0.03 10e3/ul Normal 0.00-0.[address] [facility] Comment on above: Performed By: #### C BC #### [facility] [address] [place] [address] Dr. Kaushik Palomares IG % 0.5 % Normal 0.0-0.[address] [facility] Comment on above: Performed By: #### C BC #### [facility] [address] [place] [address] Dr. Kaushik Palomares LYMPH # 2.4 103/ul Normal 1.2-3.[address] [facility] Comment on above: Performed By: #### C BC #### [facility] [address] [place] [address] Dr. Kaushik Palomares Lymphocytes/100 WBC (Bld) 36.6 % Normal 20.5-60.[address] [facility] Comment on above: Performed By: #### C BC #### [facility] [address] [place] [address] Dr. Kaushik Palomares MANUAL DIFF REQ NO Normal [facility] Comment on above: Performed By: #### C BC #### [facility] [address] [place] [address] Dr. Kaushik Palomares MCH (RBC) [Entitic mass] 29.0 pg Normal 26.7-34.[address] [facility] Comment on above: Performed By: #### C BC #### [facility] [address] [place] [address] Dr. Kaushik Palomares MCHC (RBC) [Mass/Vol] 33.3 g/dL Normal 29.9-35.[address] [facility] Comment on above: Performed By: #### C BC #### [facility] [address] [place] [address] Dr. Kaushik Palomares MCV (RBC) [Entitic vol] 87.1 fL Normal 81.0-99.0 [facility] Comment on above: Performed By: #### C BC #### [facility] [address] [place] [address] Dr. Kaushik Palomares MONO # 0.2 103/ul Critically low 0.3-0.8 [facility] Comment on above: Performed By: #### C BC #### [facility] [address] [place] [address] Dr. Kaushik Palomares Monocytes/100 WBC (Bld) 3.6 % Normal 1.7-12.0 [facility] Comment on above: Performed By: #### C BC #### [facility] [address] [place] [address] Dr. Kaushik Palomares NEUT # 3.7 103/ul Normal 1.4-6.[address] [facility] Comment on above: Performed By: #### C BC #### [facility] [address] [place] [address] Dr. Kaushik Palomares Neutrophils/100 WBC (Bld) 56.8 % Normal 43.0-75.[address] [facility] Comment on above: Performed By: #### C BC #### [facility] [address] [place] [address] Dr. Kaushik Palomares Platelet mean volume (Bld) [Entitic vol] 9.8 fL Normal 9.5-13.[address] [facility] Comment on above: Performed By: #### C BC #### [facility] [address] [address] [address] Kaushik Palomares PLT 234 103/ul Normal 150-[address] [facility] Comment on above: Performed By: #### C BC #### [facility] [address] [address] [address] Kaushik Palomares RBC 3.79 106/ul Critically low 4.20-5.40 [facility] Comment on above: Performed By: #### C BC #### [facility] [address] [address] [address] Kaushik Palomares WBC 6.5 103/ul Normal 4.0-11.[address] [facility] Comment on above: Performed By: #### C BC #### [facility] [address] [address] [address] Kaushik Palomares FREE T4on 12-31-2022 Free T4 [Mass/Vol] 0.79 ng/dL Normal 0.76-1.46 [facility] Comment on above: Performed By: #### F T4 #### [facility] [address] [address] [address] Kaushik Palomares GLYCOHEMOGLOBIN A1Con 2022 ADA RECOMMENDATION SEE BELOW Normal [facility] Comment on above: Result Comment: ADA RECOMMENDED LIMIT 4.0 - 6.0 ADA THERAPEUTIC TARGET < 7.0 ACTION SUGGESTED > 7.0 Performed By: #### A 1C #### [facility] [address] [address] [address] Kuashik Palomares Glucose [Mass/Vol] 111 mg/dL Normal [facility] Comment on above: Performed By: #### A 1C #### [facility] [address] [address] [address] Kaushik Palomares HbA1c (Bld) [Mass fraction] 5.5 % Normal 4.5-6.[address] [facility] Comment on above: Performed By: #### A 1C #### [facility] [address] [place] [address] Dr. Kaushik Palomares TSHon 12-31-2022 TSH 1.114 uIU/mL Normal 0.358-3.[address] [facility] Comment on above: Performed By: #### C #### [facility] [address] [place] [address] Dr. Kaushik Palomares US PELVIS AND TRANSVAGon [...] MACDONALD Date: 2022-11-26 15:[address] [facility] XR SACRUM_COCCYXon 3 XR SACRUM_COCCYX [...] by: SUGEY MACDONALD Date: 2022-11-08 10:[address] [facility] PAP ACOG PANEL 2: 30 to 65on 11-05-2022 . . Normal [facility] Comment on above: Result Comment: Perf ormed at: WB Performed By: #### C BC #### [facility] [address] [address] [address] Kaushik Palomares Age Gdln ACOG Testing 30-[address] [facility] Comment on above: Performed By: #### C BC #### [facility] [address] [address] [address] Kaushik Palomares DIAGNOSIS: Comment Normal [facility] Comment on above: Result Comment: NEGA TIVE FOR INTRAEPITHELIAL LESION OR MALIGNANCY. Performed at: WB Performed By: #### C BC #### [facility] [address] [address] [address] Kaushik Palomares HPV Aptima Negative Normal Negative [facility] Comment on above: Result Comment: This nucleic acid amplification test detects fourteen high-risk HPV types (16,18,31,33,35,39,45,51,52,56,58,59,66,68) without differentiation. Performed at: =G Performed By: #### C BC #### [facility] [address] [address] [address] Kaushik Palomares HPV Genotype Reflex Comment Normal [facility] Comment on above: Result Comment: Crit eria not met, HPV Genotype not performed. Performed at: WB Performed By: #### C BC #### [facility] [address] [address] [address] Kaushik Palomares Methodology: Comment Normal [facility] Comment on above: Result Comment: This liquid based ThinPrep(R) pap test was screened with the use of an image guided system. Performed at: WB Performed By: #### C BC #### [facility] [address] [place] [address] Dr. Kaushik Palomares Note: Comment Normal [facility] [...] WB Performed By: #### C BC #### [facility] [address] [address] [address] Kaushik Palomares Performed by: Comment Normal [facility] Comment on above: Result Comment: Robi Graham, Registered Occupational Therapist (ASCP) Performed at: WB Performed By: #### C BC #### [facility] [address] [address] [address] Kaushik Palomares Specimen adequacy: Comment Normal [facility] Comment on above: Result Comment: Sati sfactory for evaluation. Endocervical and/or squamous metaplastic cells (endocervical component) are present. Performed at: WB Performed By: #### C BC #### [facility] [address] [place] [address] Dr. Kaushik Palomares COVID/FLU RT-PCRon 2 SARS-CoV-2 (COVID-19) RNA SURI+probe Ql (Unsp spec) Negative [facility] Other COVID/FLU RT-PCR Negative [employer] Other HCG-BETA SUBUNIT QUANTon hCG,Beta Subunit,Qnt,Serum <[address] [facility] Comment on above: Result Comment: Fema le (Non-) 0 - 5 (Postmenopausal) 0 - 8 . Female () Weeks of Gestation 3 6 - 71 4 10 - 750 5 444 - 6992 6 158 - 81282 7 [phone] -[phone] 8 61337 -778556 9 68437 -764384 10 48873 -001468 12 06750 -408109 14 15648 - 96473 15 74405 - 23795 16 0808 - 12485 17 0157 - 43768 18 9430 - 28529 Rg ECLIA methodology Performed By: #### H CGSUB #### [facility] [address] [place] [address] Dr. Kaushik Palomares T4 LABCORPon 01-22-2022 T4 [Mass/Vol] 7.8 ug/dL Normal 4.5-12.0 [facility] Comment on above: Performed By: #### T 4LC #### [facility] [address] [place] [address] Dr. Kaushik Palomares CBC AUTO DIFFon 01-21-2022 BASO # 0.1 103/ul Normal 0.0-0.[address] [facility] Comment on above: Performed By: #### C BC #### [facility] [address] [place] [address] Dr. Kaushik Palomares Basophils/100 WBC (Bld) 0.6 % Normal 0.2-2.0 [facility] Comment on above: Performed By: #### C BC #### [facility] [address] [place] [address] Dr. Kaushik Palomares EO # 0.1 103/ul Normal 0.0-0.[address] [facility] Comment on above: Performed By: #### C BC #### [facility] [address] [place] [address] Dr. Kaushik Palomares Eosinophils/100 WBC (Bld) 1.2 % Normal 0.9-7.[address] [facility] Comment on above: Performed By: #### C BC #### [facility] [address] [place] [address] Dr. Kaushik Palomares Erythrocyte distribution width (RBC) [Ratio] 13.3 % Normal 11.0-15.[address] [facility] Comment on above: Performed By: #### C BC #### [facility] [address] [place] [address] Dr. Kaushik Palomares Hematocrit (Bld) [Volume fraction] 40.0 % Normal 36.0-48.[address] [facility] Comment on above: Performed By: #### C BC #### [facility] [address] [place] [address] Dr. Kaushik Palomares Hemoglobin (Bld) [Mass/Vol] 12.7 g/dL Normal 12.0-16.[address] [facility] Comment on above: Performed By: #### C BC #### [facility] [address] [place] [address] Dr. Kaushik Palomares IG # 0.02 10e3/ul Normal 0.00-0.[address] [facility] Comment on above: Performed By: #### C BC #### [facility] [address] [place] [address] Dr. Kaushik Palomares IG % 0.2 % Normal 0.0-0.[address] [facility] Comment on above: Performed By: #### C BC #### [facility] [address] [place] [address] Dr. Kaushik Palomares LYMPH # 3.0 103/ul Normal 1.2-3.[address] [facility] Comment on above: Performed By: #### C BC #### [facility] [address] [place] [address] Dr. Kaushik Palomares Lymphocytes/100 WBC (Bld) 32.9 % Normal 20.5-60.[address] [facility] Comment on above: Performed By: #### C BC #### [facility] [address] [place] [address] Dr. Kaushik Palomares MANUAL DIFF REQ NO Normal [facility] Comment on above: Performed By: #### C BC #### [facility] [address] [place] [address] Dr. Kaushik Palomares MCH (RBC) [Entitic mass] 28.5 pg Normal 26.7-34.[address] [facility] Comment on above: Performed By: #### C BC #### [facility] [address] [place] [address] Dr. Kaushik Palomares MCHC (RBC) [Mass/Vol] 31.8 g/dL Normal 29.9-35.[address] [facility] Comment on above: Performed By: #### C BC #### [facility] [address] [place] [address] Dr. Kaushik Palomares MCV (RBC) [Entitic vol] 89.7 fL Normal 81.0-99.0 [facility] Comment on above: Performed By: #### C BC #### [facility] [address] [place] [address] Dr. Kaushik Palomares MONO # 0.5 103/ul Normal 0.3-0.[address] [facility] Comment on above: Performed By: #### C BC #### [facility] [address] [address] [address] Kaushik Palomares Monocytes/100 WBC (Bld) 5.1 % Normal 1.7-12.0 [facility] Comment on above: Performed By: #### C BC #### [facility] [address] [address] [address] Kaushik Palomares NEUT # 5.4 103/ul Normal 1.4-6.[address] [facility] Comment on above: Performed By: #### C BC #### [facility] [address] [address] [address] Kaushik Palomares Neutrophils/100 WBC (Bld) 60.0 % Normal 43.0-75.[address] [facility] Comment on above: Performed By: #### C BC #### [facility] [address] [place] [address] Dr. Kaushik Palomares Platelet mean volume (Bld) [Entitic vol] 9.3 fL Critically low 9.5-13.[address] [facility] Comment on above: Performed By: #### C BC #### [facility] [address] [place] [address] Dr. Kaushik Palomares PLT 221 103/ul Normal 150-[address] [facility] Comment on above: Performed By: #### C BC #### [facility] [address] [place] [address] Dr. Kaushik Palomares RBC 4.46 106/ul Normal 4.20-5.[address] [facility] Comment on above: Performed By: #### C BC #### [facility] [address] [place] [address] Dr. Kaushik Palomares WBC 9.0 103/ul Normal 4.0-11.[address] [facility] Comment on above: Performed By: #### C BC #### [facility] [address] [place] [address] Dr. Kaushik Palomares GLYCOHEMOGLOBIN A1Con 2021 ADA RECOMMENDATION SEE BELOW Normal [facility] Comment on above: Result Comment: ADA RECOMMENDED LIMIT 4.0 - 6.0 ADA THERAPEUTIC TARGET < 7.0 ACTION SUGGESTED > 7.0 Performed By: #### C BC #### [facility] [address] [address] [address] Kaushik Palomares Glucose [Mass/Vol] 94 mg/dL Normal [facility] Comment on above: Performed By: #### C BC #### [facility] [address] [address] [address] Kaushik Palomares HbA1c (Bld) [Mass fraction] 4.9 % Normal 4.5-6.[address] [facility] Comment on above: Performed By: #### C BC #### [facility] [address] [address] [address] Kaushik Palomares LIPID PROFILEon 01-21-2022 CHOL-HDL RATIO NORM SEE BELOW Normal [facility] Comment on above: Result Comment: 3.3 - 4.4 LOW RISK 4.4 - 7.1 AVERAGE RISK 7.1 - 11.0 MODERATE RISK >11.0 HIGH RISK Performed By: #### L IPID, CMP, TSH #### [facility] [address] [address] [address] Kaushik Palomares Cholesterol [Mass/Vol] 168 mg/dL Normal <=200 [facility] Comment on above: Performed By: #### L IPID, CMP, TSH #### [facility] [address] [place] [address] Dr. Kaushik Palomares Cholesterol in HDL [Mass/Vol] 41 mg/dL Normal 40-[address] [facility] Comment on above: Performed By: #### L IPID, CMP, TSH #### [facility] [address] [address] [address] Kaushik Palomares Cholesterol in LDL [Mass/Vol] 90.2 mg/dL Normal [facility] Comment on above: Performed By: #### L IPID, CMP, TSH #### [facility] [address] [address] [address] Kaushik Palomares Cholesterol.total/Mali sterol in HDL [Mass ratio] 4.1 {ratio} Normal [facility] Comment on above: Performed By: #### L IPID, CMP, TSH #### [facility] [address] [address] [address] Kaushik aPlomares HDL NORMAL > or = 60 mg/dl - LO W CARDIOVASCULAR RISK <40 mg/dl - HIGH CARDIOVASCULAR RISK Normal [facility] Comment on above: Performed By: #### L IPID, CMP, TSH #### [facility] [address] [address] [address] Kaushik Palomares LDL CALC NORMAL SEE BELOW Normal [facility] Comment on above: Result Comment: <100 mg/dl OPTIMAL 100 - 129 mg/dl NEAR OR ABOVE OPTIMAL 130 - 159 mg/dl BORDERLINE HIGH 160 - 189 mg/dl HIGH >190 mg/dl VERY HIGH Performed By: #### L IPID, CMP, TSH #### [facility] [address] [address] [address] Kaushik Palomares Triglyceride [Mass/Vol] 184 mg/dL Critically high <=[address] [facility] Comment on above: Performed By: #### L IPID, CMP, TSH #### [facility] [address] [address] [address] Kaushik Palomares VLDL CALC 36.8 mg/dL Normal [facility] Comment on above: Performed By: #### L IPID, CMP, TSH #### [facility] [address] [address] [address] Kaushik Palomares MICROALBUMIN, RAND URon 06-0 mALB 2.0 mg/L Normal <=30.[address] [facility] Comment on above: Performed By: #### C BC #### [facility] [address] [address] [address] Kaushik Palomares PROF 14(COMP METB)on 022 Albumin [Mass/Vol] 3.7 g/dL Normal 3.4-5.0 [facility] Comment on above: Performed By: #### L IPID, CMP, TSH #### [facility] [address] [place] [address] Dr. Kaushik Palomares Albumin/Globulin [Mass ratio] 0.9 {ratio} Normal [facility] Comment on above: Performed By: #### L IPID, CMP, TSH #### [facility] [address] [address] [address] Kaushik Palomares ALP [Catalytic activity/Vol] 53 U/L Normal 46-[address] [facility] Comment on above: Performed By: #### L IPID, CMP, TSH #### [facility] [address] [address] [address] Kaushik Palomares ALT [Catalytic activity/Vol] 44 U/L Normal 14-[address] [facility] Comment on above: Performed By: #### L IPID, CMP, TSH #### [facility] [address] [address] [address] Kaushik Palomares Anion gap [Moles/Vol] 6.8 mmol/L Normal [facility] Comment on above: Performed By: #### L IPID, CMP, TSH #### [facility] [address] [address] [address] Kaushik Palomares AST [Catalytic activity/Vol] 22 U/L Normal 15-[address] [facility] Comment on above: Performed By: #### L IPID, CMP, TSH #### [facility] [address] [address] [address] Kaushik Palomares Bilirubin [Mass/Vol] 0.3 mg/dL Normal 0.2-1.[address] [facility] Comment on above: Performed By: #### L IPID, CMP, TSH #### [facility] [address] [address] [address] Kaushik Palomares Calcium [Mass/Vol] 9.2 mg/dL Normal 8.5-10.1 [facility] Comment on above: Performed By: #### L IPID, CMP, TSH #### [facility] [address] [address] [address] Kaushik Palomares Chloride [Moles/Vol] 102 mmol/L Normal 98-[address] [facility] Comment on above: Performed By: #### L IPID, CMP, TSH #### [facility] [address] [address] [address] Kaushik Palomares CO2 [Moles/Vol] 31.4 mmol/L Normal 21.0-32.0 [facility] Comment on above: Performed By: #### L IPID, CMP, TSH #### [facility] [address] [address] [address] Kaushik Palomares Creatinine [Mass/Vol] 0.71 mg/dL Normal 0.55-1.[address] [facility] Comment on above: Performed By: #### L IPID, CMP, TSH #### [facility] [address] [address] [address] Kaushik Palomares EGFR-AF GUATEMALAN >60 Normal >=60 [facility] Comment on above: Performed By: #### L IPID, CMP, TSH #### [facility] [address] [place] [address] Dr. Kaushik Palomares EGFR-NON AF GUATEMALAN >60 Normal >=[address] [facility] Comment on above: Performed By: #### L IPID, CMP, TSH #### [facility] [address] [place] [address] Dr. Kaushik Palomares Globulin (S) [Mass/Vol] 4.2 g/dL Normal [facility] Comment on above: Performed By: #### L IPID, CMP, TSH #### [facility] [address] [place] [address] Dr. Kaushik Palomares Glucose [Mass/Vol] 93 mg/dL Normal 74-106 [facility] Comment on above: Performed By: #### L IPID, CMP, TSH #### [facility] [address] [place] [address] Dr. Kaushik Palomares Potassium [Moles/Vol] 4.2 mmol/L Normal 3.5-5.[address] [facility] Comment on above: Performed By: #### L IPID, CMP, TSH #### [facility] [address] [place] [address] Dr. Kaushik Palomares Protein [Mass/Vol] 7.9 g/dL Normal 6.4-8.2 [facility] Comment on above: Performed By: #### L IPID, CMP, TSH #### [facility] [address] [place] [address] Dr. Kaushik Palomares Sodium [Moles/Vol] 136 mmol/L Normal 136-145 [facility] Comment on above: Performed By: #### L IPID, CMP, TSH #### [facility] [address] [address] [address] Kaushik Palomares Urea nitrogen [Mass/Vol] 11.0 mg/dL Normal 7.0-18.[address] [facility] Comment on above: Performed By: #### L IPID, CMP, TSH #### [facility] [address] [place] [address] Dr. Kaushik Palomares Urea nitrogen/Creatinine [Mass ratio] 15.5 mg/mg Normal [facility] Comment on above: Performed By: #### L IPID, CMP, TSH #### [facility] [address] [place] [address] Dr. Kaushik Palomares TSHon 01-21-2022 TSH 1.298 uIU/mL Normal 0.358-3.[address] [facility] Comment on above: Performed By: #### C BC #### [facility] [address] [place] [address] Dr. Kaushik Palomares TSH RANGE SEE BELOW Normal [facility] Comment on above: Result Comment: <0.3 4 UIU/ml HYPERTHYROID 0.34-5.60 UIU/ml EUTHYROID >5.60 UIU/ml HYPOTHYROID Performed By: #### C BC #### [facility] [address] [place] [address] Dr. Kaushik Palomares COVID Quick Testingon 2020 Result Negative [employer] Other Quick Strepon 06-17-2021 S. pyogenes Org specific cx Ql (Throat) Negative [employer] Other Quick Strep [employer] Other Urinalysis - AUTOMATEDon Appearance (U) cloudy [employer] Other Bilirubin Ql (U) Negative [employer] Other Color (U) yellow [employer] Other Glucose Ql (U) Negative [employer] Other Hemoglobin Ql (U) large [employer] Other Ketones Ql (U) Negative [employer] Other Leukocyte esterase Test strip Ql (U) trace [employer] Other Nitrite Ql (U) Positive [employer] Other pH (U) 5.5 [pH] [employer] Other Protein Ql (U) 100 [employer] Other Specific gravity (U) [Rel density] 1.025 [employer] Other Urobilinogen (U) [Mass/Vol] 0.2 mg/dL [employer] Other Urinalysis - AUTOMATED No rt [employer] Other Urine Cultureon 05-31-2021 Urine Culture >100,000 [employer] Other Urine Culture <16 [employer] Other Urine Culture >16 [employer] Other Urine Culture <4 [employer] Other Urine Culture 8 [employer] Other Urine Culture <2 [employer] Other Urine Culture <1 [employer] Other Urine Culture >2 [employer] Other Urine Culture <0.5 [employer] Other Urine Culture >8 [employer] Other Urine Culture >4 [employer] Other Urine Culture <32 [employer] Other Urine Culture >2/38 [facility] [employer] Other Vital Signs Date Time Vital Sign Value Performing Clinician Trena min 11-15-2024 13:35-0400 Body height 162.56 cm Manisha Marc [employer] SALES TRAINER Work Phone: [facility] 11-15-2024 13:35-0400 Body mass index (BMI) [Ratio] 57.4 kg/m2 Manisha Marc [employer]AL SALES TRAINER Work Phone: [facility] 11-15-2024 13:35-0400 Body temperature 97.4 [degF] Manisha Marc [employer]IONAL SALES TRAINER Work Phone: [facility] 11-15-2024 13:35-0400 Body weight 151.95 kg Manisha Marc [employer]IONAL SALES TRAINER Work Phone: [facility] 11-15-2024 13:35-0400 Diastolic blood pressure 80 mm[Hg] Manisha Marc [employer]IONAL SALES TRAINER Work Phone: [facility] 11-15-2024 13:35-0400 Heart rate 111 /min Manisha Marc [employer]AL SALES TRAINER Work Phone: [facility] 11-15-2024 13:35-0400 Systolic blood pressure 122 mm[Hg] Manisha Marc [employer]AL SALES TRAINER Work Phone: [facility] 11-03-2024 15:56-0400 Body height 162.6 cm Marko Celestina DO Work Phone: [facility] 11-03-2024 15:56-0400 Body mass index (BMI) [Ratio] 57.12 kg/m2 Marko Celestina DO Work Phone: [facility] 11-03-2024 15:56-0400 Body weight 150.96 kg Marko Celestina DO Work Phone: [facility] 11-03-2024 15:56-0400 Diastolic blood pressure 70 mm[Hg] Marko Celestina DO Work Phone: [facility] 11-03-2024 15:56-0400 Systolic blood pressure 110 mm[Hg] Marko Oscar DO Work Phone: [facility] 09-27-2024 15:46-0500 Body height 162.56 cm PHYSICIAN NO [facility] 09-27-2024 15:46-0500 Body mass index (BMI) [Ratio] 57.3 kg/m2 PHYSICIAN NO [facility] 09-27-2024 15:46-0500 Body temperature 97.9 [degF] PHYSICIAN NO [facility] 09-27-2024 15:46-0500 Body weight 151.49 kg PHYSICIAN NO [facility] 09-27-2024 15:46-0500 Diastolic blood pressure 83 mm[Hg] PHYSICIAN NO [facility] 09-27-2024 15:46-0500 Heart rate 94 /min PHYSICIAN NO [facility] 09-27-2024 15:46-0500 Respiratory rate 18 /min PHYSICIAN NO [facility] 09-27-2024 15:46-0500 SaO2% (BldA) [Mass fraction] 99 % PHYSICIAN NO [facility] 09-27-2024 15:46-0500 Systolic blood pressure 136 mm[Hg] PHYSICIAN NO [facility] 08-28-2024 13:47-0500 Body height 162.56 cm PHYSICIAN NO [facility] 08-28-2024 13:47-0500 Body mass index (BMI) [Ratio] 57.4 kg/m2 PHYSICIAN NO [facility] 08-28-2024 13:47-0500 Body temperature 97.1 [degF] PHYSICIAN NO [facility] 08-28-2024 13:47-0500 Body weight 151.95 kg PHYSICIAN NO [facility] 08-28-2024 13:47-0500 Diastolic blood pressure 86 mm[Hg] PHYSICIAN NO [facility] 08-28-2024 13:47-0500 Heart rate 105 /min PHYSICIAN NO [facility] 08-28-2024 13:47-0500 Respiratory rate 16 /min PHYSICIAN NO [facility] 08-28-2024 13:47-0500 SaO2% (BldA) [Mass fraction] 97 % PHYSICIAN NO [facility] 08-28-2024 13:47-0500 Systolic blood pressure 136 mm[Hg] PHYSICIAN NO [facility] 08-24-2024 11:00-0500 Body height 162.56 cm Manisha Marc APRN Work Phone: [facility] 08-24-2024 11:00-0500 Body mass index (BMI) [Ratio] 56.5 kg/m2 Manisha Marc [employer]AL SALES TRAINER Work Phone: [facility] 08-24-2024 11:00-0500 Body temperature 97 [degF] Manisha Marc [employer] SALES TRAINER Work Phone: [facility] 08-24-2024 11:00-0500 Body weight 149.34 kg Manisha Marc [employer]AL SALES TRAINER Work Phone: [facility] 08-24-2024 11:00-0500 Diastolic blood pressure 82 mm[Hg] Manisha Marc APRN Work Phone: [facility] 08-24-2024 11:00-0500 Heart rate 104 /min Manisha Marc [employer]AL SALES TRAINER Work Phone: [facility] 08-24-2024 11:00-0500 SaO2% (BldA) [Mass fraction] 95 % Manisha Marc APRN Work Phone: [facility] 08-24-2024 11:00-0500 Systolic blood pressure 134 mm[Hg] Manisha Marc APRN Work Phone: [facility] 08-19-2024 11:05-0500 Diastolic blood pressure 72 mm[Hg] Manisha Marc APRN Work Phone: [facility] 08-19-2024 11:05-0500 Heart rate 82 /min Manisha Marc [employer]AL SALES TRAINER Work Phone: [facility] 08-19-2024 11:05-0500 Respiratory rate 16 /min Manisha Marc [employer]AL SALES TRAINER Work Phone: [facility] 08-19-2024 11:05-0500 SaO2% (BldA) [Mass fraction] 99 % Manisha Marc [employer]IONAL SALES TRAINER Work Phone: [facility] 08-19-2024 11:05-0500 Systolic blood pressure 115 mm[Hg] Manisha Marc [employer]AL SALES TRAINER Work Phone: [facility] 08-19-2024 09:01-0500 Body height 162.56 cm Manisha Marc [employer]AL SALES TRAINER Work Phone: [facility] 08-19-2024 09:01-0500 Body weight 149.68 kg Manisha Marc [employer]AL SALES TRAINER Work Phone: [facility] 08-16-2024 11:40-0500 Body mass index (BMI) [Ratio] 57.33 kg/m2 Consuelo Love RPG DEVELOPER Work Phone: [facility] 08-16-2024 11:40-0500 Body weight 151.5 kg Consuelo Love [employer] DEVELOPER Work Phone: [facility] 08-16-2024 11:40-0500 Diastolic blood pressure 92 mm[Hg] Consuelo Love RPG DEVELOPER Work Phone: [facility] 08-16-2024 11:40-0500 Heart rate 82 /min Consuelo Love [employer] DEVELOPER Work Phone: [facility] 08-16-2024 11:40-0500 SaO2% (BldA) [Mass fraction] 93 % Consuelo Love [employer] DEVELOPER Work Phone: [facility] 08-16-2024 11:40-0500 Systolic blood pressure 144 mm[Hg] Consuelo Love RPG DEVELOPER Work Phone: [facility] 08-09-2024 15:48-0500 Body height 162.56 cm Manisha Marc [employer]IONAL SALES TRAINER Work Phone: [facility] 08-09-2024 15:48-0500 Body mass index (BMI) [Ratio] 58.1 kg/m2 Manisha Marc [employer]IONAL SALES TRAINER Work Phone: [facility] 08-09-2024 15:48-0500 Body temperature 98.7 [degF] Manisha Marc [employer]IONAL SALES TRAINER Work Phone: [facility] 08-09-2024 15:48-0500 Body weight 153.76 kg Manisha Marc [employer]IONAL SALES TRAINER Work Phone: [facility] 08-09-2024 15:48-0500 Diastolic blood pressure 94 mm[Hg] Manisha Marc [employer]IONAL SALES TRAINER Work Phone: [facility] 08-09-2024 15:48-0500 Heart rate 135 /min Manisha Marc [employer]IONAL SALES TRAINER Work Phone: [facility] 08-09-2024 15:48-0500 SaO2% (BldA) [Mass fraction] 96 % Manisha Marc [employer]IONAL SALES TRAINER Work Phone: [facility] 08-09-2024 15:48-0500 Systolic blood pressure 134 mm[Hg] Manisha Marc APRN Work Phone: [facility] 06-23-2024 12:21-0500 Body mass index (BMI) [Ratio] 57.47 kg/m2 Kojosudheer Daleett DO Work Phone: [facility] 06-23-2024 12:21-0500 Body weight 151.86 kg Gwen Kenny DO Work Phone: [facility] 06-23-2024 12:21-0500 Diastolic blood pressure 81 mm[Hg] Gwen Cox DO Work Phone: [facility] 06-23-2024 12:21-0500 Heart rate 104 /min Kojoer Kenny DO Work Phone: [facility] 06-23-2024 12:21-0500 SaO2% (BldA) [Mass fraction] 95 % Christopher Kenny DO Work Phone: [facility] 06-23-2024 12:21-0500 Systolic blood pressure 132 mm[Hg] Christopher Kenny DO Work Phone: [facility] 06-21-2024 11:18-0500 Body height 162.56 cm REGIONAL SALES TRAINERJosé Miguel Marc Work Phone: [facility] 06-21-2024 11:18-0500 Body mass index (BMI) [Ratio] 57 kg/m2 REGIONAL SALES TRAINERJosé Miguel Marc Work Phone: [facility] 06-21-2024 11:18-0500 Body temperature 97.3 [degF] REGIONAL SALES TRAINERJosé Miguel Marc Work Phone: [facility] 06-21-2024 11:18-0500 Body weight 150.81 kg REGIONAL SALES TRAINERJosé Miguel Keaner Work Phone: [facility] 06-21-2024 11:18-0500 Diastolic blood pressure 88 mm[Hg] ROSITA Marc Work Phone: [facility] 06-21-2024 11:18-0500 Heart rate 135 /min REGIONAL SALES TRAINERJosé Miguel Marc Work Phone: [facility] 06-21-2024 11:18-0500 SaO2% (BldA) [Mass fraction] 94 % REGIONAL SALES TRAINERJosé Miguel Keaner Work Phone: [facility] 06-21-2024 11:18-0500 Systolic blood pressure 136 mm[Hg] ROSITA Marc Work Phone: [facility] 06-15-2024 09:29-0400 Body height 162.56 cm ROSITA Marc Work Phone: [facility] 06-15-2024 09:29-0400 Body mass index (BMI) [Ratio] 57.9 kg/m2 REGIONAL SALES TRAINERJosé Miguel Parksacher Work Phone: [facility] 06-15-2024 09:29-0400 Body temperature 97.5 [degF] REGIONAL SALES TRAINERJosé Miguel Parksacher Work Phone: [facility] 06-15-2024 09:29-0400 Body weight 152.97 kg REGIONAL SALES TRAINERJosé Miguel Parksacher Work Phone: [facility] 06-15-2024 09:29-0400 Diastolic blood pressure 88 mm[Hg] REGIONAL SALES TRAINERJosé Miguel Parksacher Work Phone: [facility] 06-15-2024 09:29-0400 Heart rate 103 /min REGIONAL SALES TRAINERJosé Miguel Parksacher Work Phone: [facility] 06-15-2024 09:29-0400 Respiratory rate 18 /min REGIONAL SALES TRAINERJosé Miguel Parksacher Work Phone: [facility] 06-15-2024 09:29-0400 SaO2% (BldA) [Mass fraction] 95 % REGIONAL SALES TRAINERJosé Miguel Parksacher Work Phone: [facility] 06-15-2024 09:29-0400 Systolic blood pressure 128 mm[Hg] ROSITA Parksacher Work Phone: [facility] 04-21-2024 14:31-0400 Body height 162.56 cm REGIONAL SALES TRAINERJosé Miguel Parksacher Work Phone: [facility] 04-21-2024 14:31-0400 Body mass index (BMI) [Ratio] 55 kg/m2 ROSITA Parksacher Work Phone: [facility] 04-21-2024 14:31-0400 Body weight 145.6 kg [employer]IONAL SALES TRAINER Manisha Rohrbacher Work Phone: [facility] 04-21-2024 14:31-0400 Diastolic blood pressure 88 mm[Hg] REGIONAL SALES TRAINERJosé Miguel ColladoManisha Denyrbacher Work Phone: [facility] 04-21-2024 14:31-0400 Heart rate 111 /min REGIONAL SALES TRAINERJosé Miguel ColladoManisha Denyrbacher Work Phone: [facility] 04-21-2024 14:31-0400 SaO2% (BldA) [Mass fraction] 97 % REGIONAL SALES TRAINERJosé Miguel ColladoManisha Denyrbacher Work Phone: [facility] 04-21-2024 14:31-0400 Systolic blood pressure 136 mm[Hg] REGIONAL SALES TRAINERJosé Miguel Barclayrbacher Work Phone: [facility] 11-26-2023 08:40-0400 Body height 162.56 cm REGIONAL SALES TRAINERJosé Miguel Barclayrbacher Work Phone: [facility] 11-26-2023 08:40-0400 Body mass index (BMI) [Ratio] 52.9 kg/m2 REGIONAL SALES TRAINERJosé Miguel Barclayrbacher Work Phone: [facility] 11-26-2023 08:40-0400 Body weight 139.79 kg REGIONAL SALES TRAINERJosé Miguel ColladoManisha Denyrbacher Work Phone: [facility] 11-26-2023 08:40-0400 Diastolic blood pressure 79 mm[Hg] REGIONAL SALES TRAINERJosé Miguel Barclayrbacher Work Phone: [facility] 11-26-2023 08:40-0400 Heart rate 97 /min REGIONAL SALES TRAINERJosé Miguel Barclayrbacher Work Phone: [facility] 11-26-2023 08:40-0400 SaO2% (BldA) [Mass fraction] 99 % REGIONAL SALES TRAINERJosé Miguel Barclayrbacher Work Phone: [facility] 11-26-2023 08:40-0400 Systolic blood pressure 131 mm[Hg] REGIONAL SALES TRAINERJosé Miguel Barclayrbacher Work Phone: [facility] 11-03-2023 14:06-0400 Body height 162.56 cm REGIONAL SALES TRAINERJosé Miguel ColladoManisha Denyrbacher Work Phone: [facility] 11-03-2023 14:06-0400 Body mass index (BMI) [Ratio] 53.1 kg/m2 REGIONAL SALES TRAINERJosé Miguel Barclayrbacher Work Phone: [facility] 11-03-2023 14:06-0400 Body weight 140.61 kg REGIONAL SALES TRAINERJosé Miguel ColladoManisha Denyrbacher Work Phone: [facility] 11-03-2023 14:06-0400 Diastolic blood pressure 78 mm[Hg] REGIONAL SALES TRAINERJosé Miguel Barclayrbacher Work Phone: [facility] 11-03-2023 14:06-0400 Heart rate 105 /min REGIONAL SALES TRAINERJosé Miguel Parksacher Work Phone: [facility] 11-03-2023 14:06-0400 SaO2% (BldA) [Mass fraction] 98 % REGIONAL SALES TRAINERJosé Miguel Parksacher Work Phone: [facility] 11-03-2023 14:06-0400 Systolic blood pressure 118 mm[Hg] ROSITA Barclayrbacher Work Phone: [facility] 10-08-2023 10:50-0500 Body height 162.56 cm REGIONAL SALES TRAINERJosé Miguel Parksacher Work Phone: [facility] 10-08-2023 10:50-0500 Body weight 139.25 kg REGIONAL SALES TRAINERJosé Miguel Parksacher Work Phone: [facility] 10-01-2023 09:20-0500 Body height 162.56 cm ROSITA Barclayrbacher Work Phone: [facility] 10-01-2023 09:20-0500 Body mass index (BMI) [Ratio] 53.6 kg/m2 ROSITA Keaner Work Phone: [facility] 10-01-2023 09:20-0500 Body weight 141.69 kg [employer]IONAL SALES TRAINER Manisha Barclayrbacher Work Phone: [facility] 10-01-2023 09:20-0500 Diastolic blood pressure 75 mm[Hg] REGIONAL SALES TRAINER Manisha Denyrbacher Work Phone: [facility] 10-01-2023 09:20-0500 Heart rate 85 /min [employer]IONAL SALES TRAINER Manisha Denyrbacher Work Phone: [facility] 10-01-2023 09:20-0500 Respiratory rate 18 /min [employer]IONAL SALES TRAINER Manisha Denyrbacher Work Phone: [facility] 10-01-2023 09:20-0500 SaO2% (BldA) [Mass fraction] 99 % REGIONAL SALES TRAINER Manisha Denyrbacher Work Phone: [facility] 10-01-2023 09:20-0500 Systolic blood pressure 123 mm[Hg] REGIONAL SALES TRAINER Manisha Denyrbacher Work Phone: [facility] 09-03-2023 08:00-0500 Body height 162.56 cm ROSITA Manisha Denyrbacher Work Phone: [facility] 09-03-2023 08:00-0500 Body weight 138.79 kg REGIONAL SALES TRAINER Manisha Denyrbacher Work Phone: [facility] 09-03-2023 08:00-0500 Diastolic blood pressure 78 mm[Hg] REGIONAL SALES TRAINERJosé Miguel ColladoManisha Denyrbacher Work Phone: [facility] 09-03-2023 08:00-0500 Systolic blood pressure 118 mm[Hg] ROSITA Colladofer Denyrbacher Work Phone: [facility] 08-19-2023 09:45-0500 Body height 162.56 cm Nely Cruz Other [facility] 08-13-2023 14:00-0500 Body height 162.56 cm Manisha Marc Other [facility] 08-13-2023 14:00-0500 Body mass index (BMI) [Ratio] 52.35 kg/m2 Manisha Marc Other [employer] Other 08-13-2023 14:00-0500 Body weight 138.35 kg Manisha Marc Other [employer] Other 08-13-2023 14:00-0500 Body weight 138.34 kg ROSITA Marc Work Phone: [facility] 08-13-2023 14:00-0500 Diastolic blood pressure 80 mm[Hg] Manisha Marc Other [facility] 08-13-2023 14:00-0500 SaO2% (BldA) [Mass fraction] 98 % Manisha Marc Other [employer] Other 08-13-2023 14:00-0500 Systolic blood pressure 114 mm[Hg] Manisha Marc Other [facility] 07-15-2023 07:45-0500 Body height 162.56 cm Celio Mullins Other [facility] 07-15-2023 07:45-0500 Body mass index (BMI) [Ratio] 52.98 kg/m2 Celio Mullins Other [employer] Other 07-15-2023 07:45-0500 Body weight 140.03 kg Celio Mullins Other [employer] Other 07-15-2023 07:45-0500 Body weight 140.02 kg ROSITA Marc Work Phone: [facility] 07-15-2023 07:45-0500 Diastolic blood pressure 66 mm[Hg] Celio Mullins Other [facility] 07-15-2023 07:45-0500 Respiratory rate 18 /min Celio Mullins Other [facility] [employer] Other 07-15-2023 07:45-0500 SaO2% (BldA) [Mass fraction] 98 % Celio Mullins Other [facility] [employer] Other 07-15-2023 07:45-0500 Systolic blood pressure 112 mm[Hg] Celio Mullins Other [facility] 07-07-2023 11:15-0500 Body height 162.56 cm Michelle Ernandez Other [facility] 07-07-2023 11:15-0500 Body mass index (BMI) [Ratio] 52.69 kg/m2 Michelle Ernandez Other [facility] [employer] [facility] [employer] Other 07-07-2023 11:15-0500 Body temperature 98 [degF] Michelle Ernandez Other [employer] [facility] [employer] [facility] [employer] Other 07-07-2023 11:15-0500 Body weight 139.26 kg Michelle Ernandez Other [employer] Other 07-07-2023 11:15-0500 Body weight 139.25 kg ROSITA Marc Work Phone: [facility] 07-07-2023 11:15-0500 Respiratory rate 20 /min Michelle Haynesmond Other [employer] Other 07-07-2023 11:15-0500 SaO2% (BldA) [Mass fraction] 98 % Michelle Ernandez Other [employer] Other 06-29-2023 10:20-0500 Body height 162.56 cm Michelle Ernandez Other [employer] Other 06-29-2023 10:20-0500 Body mass index (BMI) [Ratio] 53.03 kg/m2 Michelle Haynesmond Other [employer] Other 06-29-2023 10:20-0500 Body temperature 99.7 [degF] Michelle Ernandez Other [employer] Other 06-29-2023 10:20-0500 Body weight 140.16 kg Michelle Ernandez Other [employer] Other 06-29-2023 10:20-0500 Respiratory rate 19 /min Michelle Ernandez Other [employer] Other 06-29-2023 10:20-0500 SaO2% (BldA) [Mass fraction] 98 % Michelle Ernandez Other [employer] Other 06-11-2023 15:30-0400 Body height 162.56 cm Manisha Marc Other [employer] Other 06-11-2023 15:30-0400 Body mass index (BMI) [Ratio] 53.79 kg/m2 Manisha Marc Other [employer] Other 06-11-2023 15:30-0400 Body weight 142.16 kg Manisha Marc Other [employer] Other 06-11-2023 15:30-0400 Diastolic blood pressure 62 mm[Hg] Manisha Tari Other [employer] Other 06-11-2023 15:30-0400 SaO2% (BldA) [Mass fraction] 99 % Manisha Tari Other [employer] Other 06-11-2023 15:30-0400 Systolic blood pressure 126 mm[Hg] Manisha Tari Other [employer] Other 05-06-2023 13:40-0400 Body height 162.56 cm Casandra Hassan Other [employer] Other 05-06-2023 13:40-0400 Body mass index (BMI) [Ratio] 53.65 kg/m2 Casandra Hassan Other [employer] Other 05-06-2023 13:40-0400 Body temperature 98.4 [degF] Casandra Hassan Other [employer] Other 05-06-2023 13:40-0400 Body weight 141.8 kg Casandra Hassan Other [employer] Other 05-06-2023 13:40-0400 Diastolic blood pressure 81 mm[Hg] Casandra Hassan Other [employer] Other 05-06-2023 13:40-0400 Respiratory rate 18 /min Casandra Hassan Other [employer] Other 05-06-2023 13:40-0400 SaO2% (BldA) [Mass fraction] 95 % Casandra Hassan Other [employer] Other 05-06-2023 13:40-0400 Systolic blood pressure 134 mm[Hg] Casandra Hassan Other [employer] Other 04-30-2023 08:30-0400 Body height 162.56 cm Manisha Marc Other [employer] Other 04-30-2023 08:30-0400 Body mass index (BMI) [Ratio] 53.86 kg/m2 Manisha Marc Other [employer] Other 04-30-2023 08:30-0400 Body weight 142.34 kg Manisha Marc Other [employer] Other 04-30-2023 08:30-0400 Diastolic blood pressure 82 mm[Hg] Manisha Marc Other [employer] Other 04-30-2023 08:30-0400 SaO2% (BldA) [Mass fraction] 100 % Manisha Marc Other [employer] Other 04-30-2023 08:30-0400 Systolic blood pressure 120 mm[Hg] Manisha Marc Other [employer] Other 04-29-2023 07:00-0400 Body height 162.56 cm Nely Cruz Other [employer] Other 04-29-2023 07:00-0400 Body mass index (BMI) [Ratio] 54.41 kg/m2 Nely Fitt Other [employer] Other 04-29-2023 07:00-0400 Body weight 143.79 kg Nely Cruz Other [employer] Other 03-25-2023 13:45-0400 Body height 162.56 cm Celio Mullins Other [employer] Other 03-25-2023 13:45-0400 Body mass index (BMI) [Ratio] 55.45 kg/m2 Celio Mullins Other [employer] Other 03-25-2023 13:45-0400 Body weight 146.56 kg Ceilo Mullins Other [employer] Other 03-25-2023 13:45-0400 Diastolic blood pressure 57 mm[Hg] Celio Mullins Other [employer] Other 03-25-2023 13:45-0400 Respiratory rate 18 /min Celio Complexa Other [employer] Other 03-25-2023 13:45-0400 SaO2% (BldA) [Mass fraction] 97 % Celio Mullins Other [employer] Other 03-25-2023 13:45-0400 Systolic blood pressure 106 mm[Hg] Celio Complexa Other [employer] Other 02-11-2023 12:15-0400 Body height 163.83 cm Casandra Hassan Other [employer] Other 02-11-2023 12:15-0400 Body mass index (BMI) [Ratio] 54.88 kg/m2 Casandra Hassan Other [employer] Other 02-11-2023 12:15-0400 Body temperature 98 [degF] Casandra Tesfayeley Other [employer] Other 02-11-2023 12:15-0400 Body weight 147.33 kg Casandra Sonya Other [employer] Other 02-11-2023 12:15-0400 Diastolic blood pressure 85 mm[Hg] Casandra Sonya Other [employer] Other 02-11-2023 12:15-0400 Respiratory rate 18 /min Casandra Sonya Other [employer] Other 02-11-2023 12:15-0400 SaO2% (BldA) [Mass fraction] 98 % Casandra Sonya Other [employer] Other 02-11-2023 12:15-0400 Systolic blood pressure 128 mm[Hg] Casandra Sonya Other [employer] Other 07-13-2022 11:15-0500 Body height 163.83 cm Michelle Haynesmond Other [employer] Other 07-13-2022 11:15-0500 Body mass index (BMI) [Ratio] 51.54 kg/m2 Michelle Haynesmond Other [employer] Other 07-13-2022 11:15-0500 Body temperature 96.6 [degF] Michelle Oma Other [employer] Other 07-13-2022 11:15-0500 Body weight 138.35 kg Michelle Oam Other [employer] Other 07-13-2022 11:15-0500 Respiratory rate 18 /min Michelle Haynesmond Other [employer] Other 07-13-2022 11:15-0500 SaO2% (BldA) [Mass fraction] 96 % Michelle Oma Other [employer] Other 07-06-2021 13:00-0500 Body height 163.83 cm Michelle Oma Other [employer] Other 07-06-2021 13:00-0500 Body mass index (BMI) [Ratio] 49 kg/m2 Michelle Oma Other [employer] Other 07-06-2021 13:00-0500 Body temperature 97.5 [degF] Michelle Oma Other [employer] Other 07-06-2021 13:00-0500 Body weight 131.54 kg Michelle Oma Other [employer] Other 07-06-2021 13:00-0500 SaO2% (BldA) [Mass fraction] 96 % Michelle Oma Other [employer] Other 06-17-2021 11:00-0400 Body height 163.83 cm Michelle Oma Other [employer] Other 06-17-2021 11:00-0400 Body mass index (BMI) [Ratio] 49.68 kg/m2 Michelle Oma Other [employer] Other 06-17-2021 11:00-0400 Body temperature 98.3 [degF] Michelle Oma Other [employer] Other 06-17-2021 11:00-0400 Body weight 133.36 kg Michelle Oma Other [employer] Other 06-17-2021 11:00-0400 Respiratory rate 18 /min Michelle Oma Other [employer] Other 06-17-2021 11:00-0400 SaO2% (BldA) [Mass fraction] 96 % Michelle Oma Other [employer] Other 05-31-2021 13:50-0400 Body height 163.83 cm Michelle Oma Other [employer] Other 05-31-2021 13:50-0400 Body mass index (BMI) [Ratio] 50.36 kg/m2 Michelle Oma Other [employer] Other 05-31-2021 13:50-0400 Body temperature 97.8 [degF] Michelle Oma Other [employer] Other 05-31-2021 13:50-0400 Body weight 135.17 kg Michelle Oma Other [employer] Other 05-31-2021 13:50-0400 Diastolic blood pressure 90 mm[Hg] Michelle Oma Other [employer] Other 05-31-2021 13:50-0400 Respiratory rate 18 /min Michelle Oma Other [employer] Other 05-31-2021 13:50-0400 SaO2% (BldA) [Mass fraction] 98 % Michelle Oma Other [facility] [employer] Other 05-31-2021 13:50-0400 Systolic blood pressure 150 mm[Hg] Michelle Oma Other [facility] [employer] Other Encounters Encounter Date Encounter Type Care Provider Facility Start: 01-05-2025 ambulatory Edward Richey acility:[facility] Start: 11-30-2024 End: 11-30-2024 ambulatory MELA ANDERSON Not Available Start: 11-15-2024 End: 11-15-2024 ambulatory Manisha Marc APRN Work Phone: [facility] Work Phone: Start: 11-15-2024 End: 11-15-2024 Patient encounter procedure Manisha Marc APRN Work Phone: [facility] Physician [facility] Work Phone: Start: 11-10-2024 End: 11-10-2024 ambulatory CONSUELO LOVE Not Available Start: 11-09-2024 Registered Recurring Manisha Marc APRN Work Phone: [facility] Start: 11-03-2024 Non-patient / Non-visit Sherry Marc APRN Work Phone: [facility] Work Phone: Start: 11-03-2024 End: 11-03-2024 Patient encounter procedure Marko Celestina DO Work Phone: [facility] Work Phone: Start: 11-03-2024 End: 11-03-2024 Periodic preventive med est patient 18-39 yrs Marko Celestina DO Work Phone: [facility] Comment on above: Well woman exam with routine gynecological exam; Exposure to STD; Vaginal discharge; Missed menses; PCOS (polycystic ovarian syndrome); Vaginal itching Start: 11-03-2024 End: 11-03-2024 ambulatory MARKO OSCAR Not Available Start: 10-12-2024 Non-patient / Non-visit Sherry Marc APRN Work Phone: [facility] Physician [facility] Work Phone: Start: 09-27-2024 End: 09-27-2024 ambulatory PHYSICIAN NO [facility] Work Phone: Start: 09-27-2024 End: 09-27-2024 Patient encounter procedure PHYSICIAN NO [facility] Work Phone: Start: 08-28-2024 End: 08-28-2024 ambulatory PHYSICIAN NO [facility] Work Phone: Start: 08-28-2024 End: 08-28-2024 Patient encounter procedure PHYSICIAN NO [facility] Physician [facility] Work Phone: Start: 08-27-2024 Registered Recurring PHYSICIAN NO [facility] Start: 08-24-2024 Registered Recurring PHYSICIAN NO [facility] Start: 08-24-2024 Immune system finding Mansiha Marc APRN Work Phone: [facility] Start: 08-24-2024 Patient encounter status Manisha Marc APRN Work Phone: [facility] Start: 08-24-2024 End: 08-24-2024 ambulatory Manisha Marc APRN Work Phone: [facility] Work Phone: Start: 08-24-2024 End: 08-24-2024 Encounter for antibody response examination Manisha Marc APRN Work Phone: [facility] Start: 08-24-2024 End: 08-24-2024 Encounter for general adult medical examination without abnormal findings Manisha Marc APRN Work Phone: [facility] Start: 08-24-2024 End: 08-24-2024 Patient encounter procedure Manisha Tari [employer] SAL[employer] TRAINER Work Phone: [facility] Physician [facility] Work Phone: Start: 08-19-2024 Non-patient / Non-visit Sherry Marc APRN Work Phone: [facility] Physician [facility] Work Phone: Start: 08-19-2024 End: 08-19-2024 Admission to same day surgery center Manisha Tari JANEN Work Phone: [facility] Work Phone: Start: 08-19-2024 End: 08-19-2024 ambulatory Manisha Tari BECKER Work Phone: [facility] Work Phone: Start: 08-16-2024 End: 08-16-2024 Bamboo flowsheet Consuelo Love RPG DEVELOPER Work Phone: [employer] [facility] [address] Start: 08-16-2024 End: 08-16-2024 Bamboo flowsheet Consuelo Love RPG DEVELOPER Work Phone: [employer] [facility] [address] Start: 08-16-2024 End: 08-16-2024 ambulatory CONSUELO LOVE Not Available Start: 08-16-2024 End: 08-16-2024 Office outpatient visit 15 minutes Consuelo Love RPG DEVELOPER Work Phone: [facility] [address] Comment on above: Cognitive dysfunctio n (Primary Dx); ALEXX (obstructive sleep apnea); Attention deficit hyperactivity disorder (ADHD), unspecified ADHD type (CMS/HCC); Severe anxiety; Severe episode of recurrent major depressive disorder, without psychotic features (HCC) (CMS/HCC); Bipolar affective disorder, remission status unspecified (CMS/HCC); Episodic migraine (CMS/HCC) Start: 08-09-2024 End: 08-09-2024 ambulatory Manisha Marc Facility:[facility] Start: 08-09-2024 End: 08-09-2024 Departed Referred Manisha Tari BECKER Work Phone: [facility] [place] Work Phone: Start: 08-09-2024 End: 08-09-2024 Patient encounter procedure Manisha Marc APRN Work Phone: [facility] Physician [facility] Work Phone: Start: 08-03-2024 Registered Recurring Manisha Tari BECKER Work Phone: [facility] Start: 07-12-2024 End: 07-12-2024 Patient encounter procedure Mario Mcknight PhD Work Phone: [facility] Comment on above: ADHD (attention [...] Work Phone: [facility] Physician [facility] Work Phone: Start: 06-28-2024 End: 06-28-2024 Bamboo flowsheet Mario Mcknight PhD Work Phone: [facility] Start: 06-28-2024 End: 06-28-2024 Bamboo flowsheet Mario Mcknight PhD Work Phone: [facility] Start: 06-28-2024 End: 06-28-2024 Patient encounter procedure Mario Mcknight PhD Work Phone: [facility] Comment on above: ADHD (attention defi cit hyperactivity disorder), inattentive type (CMS/HCC) (Primary Dx); Cognitive impairment; ALEXX (obstructive sleep apnea); Bipolar affective disorder, remission status unspecified (CMS/HCC); Other chronic pain Start: 06-28-2024 End: 06-28-2024 ambulatory MARIO CHARLESOMAR Not Available Start: 06-25-2024 End: 06-25-2024 Departed Referred Manisha Marc APRN Work Phone: [facility] [place] Work Phone: Start: 06-25-2024 End: 06-25-2024 ambulatory Manisha Marc APRN Work Phone: [facility] Work Phone: Start: 06-25-2024 End: 06-25-2024 Patient encounter procedure Manisha Marc APRN Work Phone: [facility] Physician Group-[facility] Work Phone: Start: 06-23-2024 ambulatory Facility:[facility] Start: 06-23-2024 End: 06-23-2024 Bamboo flowsheet Christopher Kenny DO Work Phone: [facility] [address] Start: 06-23-2024 End: 06-23-2024 Bamboo flowsheet Christopher Kenny DO Work Phone: [facility] [address] Start: 06-23-2024 End: 06-23-2024 Office outpatient new 45 minutes Christopher Kenny DO Work Phone: [facility] [address] Comment on above: Cognitive impairment (Primary Dx); Anxiety Start: 06-23-2024 End: 06-23-2024 ambulatory GWEN COX Not Available Start: 06-21-2024 End: 06-21-2024 ambulatory ROSITA Marc Work Phone: [facility] Work Phone: Start: 06-21-2024 End: 06-21-2024 Patient encounter procedure REGIONAL SALES TRAINERJosé Miguel ThaoManisha Tari Work Phone: [facility] Work [facility]: Start: 06-18-2024 Non-patient / Non-visit REG[employer]AL SALES TRAINER Toshia lorenzo Tari Work Phone: [facility] Physician [facility] Work Phone: Start: 06-15-2024 End: 06-15-2024 Departed Referred REGIONAL SALES TRAINERJosé Miguel Marc Work Phone: [facility] [place] Work Phone: Start: 06-15-2024 End: 06-15-2024 ambulatory REGIONAL SALES TRAINERJosé Miguel Marc Work Phone: [facility] Work Phone: Start: 06-15-2024 End: 06-15-2024 Patient encounter procedure ROSITA Thaoniamita Marc Work Phone: [facility] Physician [facility] Work Phone: Start: 06-07-2024 Non-patient / Non-visit ROSITA Marc Work Phone: [facility] Physician [facility] Work Phone: Start: 05-13-2024 Registered Recurring ROSITA Marc Work Phone: [facility] Start: 04-21-2024 End: 04-21-2024 ambulatory REGIONAL SALES TRAINERJosé Miguel Marc Work Phone: [facility] Work Phone: Start: 04-21-2024 End: 04-21-2024 Patient encounter procedure ROSITA Marc Work Phone: [facility] Physician [facility] Work Phone: Start: 04-15-2024 Non-patient / Non-visit REG[employer]AL SALES TRAINER Toshia lorenzo Denyrbacher Work Phone: [facility] Work Phone: Start: 04-12-2024 Non-patient / Non-visit REGIONAL SALES TRAINER Toshia lorenzo Denyrbacher Work Phone: [facility] Work Phone: Start: 04-03-2024 Registered Recurring REGIONAL SALES TRAINER Layla reyna Charlyacher Work Phone: [facility] Start: 03-16-2024 End: 03-16-2024 ambulatory MELA ANDERSON Not Available Start: 01-19-2024 End: 01-19-2024 ambulatory Bud Combs MD Facility:[facility] Start: 01-01-2024 Registered Recurring REGIONAL SALES TRAINER Layla axel Diyar Work Phone: [facility] Start: 11-26-2023 End: 11-26-2023 ambulatory REGIONAL SALES TRAINER Manisha Charlyacher Work Phone: [facility] Work Phone: Start: 11-26-2023 End: 11-26-2023 Patient encounter procedure REGIONAL SALES TRAINERJosé Miguel Dyer Denyrbacher Work Phone: [facility] Work Phone: Start: 11-03-2023 End: 11-03-2023 ambulatory REGIONAL SALES TRAINER Manisha Denyrbacher Work Phone: [facility] Work Phone: Start: 11-03-2023 End: 11-03-2023 Patient encounter procedure REGIONAL SALES TRAINER Manisha Denyrbacher Work Phone: [facility] Work Phone: Start: 10-30-2023 Non-patient / Non-visit REGIONAL SALES TRAINER Toshia lorenzo Denyrbacher Work Phone: [facility] Work Phone: Start: 10-08-2023 End: 10-08-2023 ambulatory ROSITA Marc Work Phone: [facility] Work Phone: Start: 10-08-2023 End: 10-08-2023 Patient encounter procedure ROSITA Marc Work Phone: [facility] [place] Work Phone: Start: 10-06-2023 Non-patient / Non-visit ROSITA Marc Work Phone: [facility] Work Phone: Start: 10-06-2023 End: 10-06-2023 ambulatory Bud Combs MD Facility:[facility] Start: 10-01-2023 End: 10-01-2023 ambulatory ROSITA Marc Work Phone: [facility] Work Phone: Start: 10-01-2023 End: 10-01-2023 Patient encounter procedure ROSITA Marc Work Phone: [facility] Physician [facility] Work Phone: Start: 09-10-2023 Registered Recurring ROSITA Marc Work Phone: [facility] Start: 09-08-2023 End: 09-08-2023 ambulatory Bud Combs MD Facility:[facility] Start: 09-03-2023 End: 09-03-2023 Patient encounter procedure ROSITA Marc Work Phone: [facility] Physician Group- Start: 08-19-2023 End: 08-19-2023 ambulatory Nely Cruz Other [facility] [employer] Other Start: 08-19-2023 IBT FOR OBESITY GROU P 2-10 30M Nely Cruz [facility] Start: 08-19-2023 Registered Recurring ROSITA Marc Work Phone: [facility] Work Phone: Start: 08-19-2023 End: 08-19-2023 Patient encounter procedure ROSITA Marc Work Phone: [facility] Physician Group-[facility] Work Phone: Start: 08-14-2023 Registered Recurring REGIONAL SALES TRAINERJosé Miguel Marc Work Phone: [facility] Start: 08-13-2023 End: 08-13-2023 ambulatory Manisha Marc Other [employer] Other Start: 08-13-2023 Office outpatient vi sit 15 minutes Manisha Marc [facility] Start: 08-13-2023 End: 08-13-2023 Patient encounter procedure ROSITA Marc Work Phone: [facility] Work Phone: Start: 07-21-2023 End: 07-21-2023 ambulatory Bud Combs MD Facility:[facility] Start: 07-19-2023 End: 07-19-2023 ambulatory ROSITA Marc Work Phone: [facility] Work Phone: Start: 07-19-2023 End: 07-19-2023 Patient encounter procedure ROSITA Marc Work Phone: [facility] Start: 07-15-2023 End: 07-15-2023 ambulatory Celio Mullins Other [employer] Other Start: 07-15-2023 [facility] Start: 07-15-2023 End: 07-15-2023 Patient encounter procedure ROSITA Marc Work Phone: [facility] Physician Group-[facility] Work Phone: Start: 07-07-2023 End: 07-07-2023 ambulatory Michelle Oma Other [employer] Other Start: 07-07-2023 Office outpatient vi sit 15 minutes Michelle Oma [facility] Start: 07-07-2023 End: 07-07-2023 Patient encounter procedure ROSITA Marc Work Phone: [facility] Physician Group-[facility] Work Phone: Start: 07-03-2023 Registered Recurring ROSITA Marc Work Phone: [facility] Start: 07-03-2023 End: 07-03-2023 ambulatory ROSITA Marc Work Phone: [facility] Work Phone: Start: 07-03-2023 End: 07-03-2023 Patient encounter procedure ROSITA Marc Work Phone: [facility] [place] Work Phone: Start: 07-01-2023 End: 07-01-2023 Patient encounter procedure ROSITA Marc Work Phone: [facility] [place] Work Phone: Start: 06-29-2023 End: 06-29-2023 ambulatory Michelle Oma Other [employer] Other Start: 06-29-2023 Office outpatient vi sit 15 minutes Michelle Oma [facility] Start: 06-17-2023 Registered Recurring [employer]AL SALES TRAINER Layla axel Tari Work Phone: [facility] Work Phone: Start: 06-11-2023 End: 06-11-2023 ambulatory Manisha Tari Other [employer] Other Start: 06-11-2023 Office outpatient vi sit 25 minutes Manisha Marc [facility] Start: 05-06-2023 End: 05-06-2023 ambulatory Casandra Hassan Other [employer] Other Start: 05-06-2023 Office outpatient vi sit 10 minutes Casandra Hassan [facility] Start: 05-01-2023 End: 05-01-2023 ambulatory Manisha Marc Other [employer] Other Start: 05-01-2023 Telephone encounter Manisha Jacky her [facility] Start: 04-30-2023 End: 04-30-2023 ambulatory Manisha Tari Other [employer] Other Start: 04-30-2023 Encounter for genera l adult medical examination without abnormal findings Manisha Marc [facility] Start: 04-30-2023 Periodic preventive med est patient 18-39 yrs Manisha Marc [facility] Start: 04-29-2023 ([facility]NI) WMN Init ial Provider Nely Cruz [facility] Start: 04-29-2023 End: 04-29-2023 ambulatory Nely Cruz Other [employer] Other Start: 03-25-2023 End: 03-25-2023 ambulatory Celio Mullins Other [employer] Other Start: 03-25-2023 Nutrition therapy Celio johns [facility] Start: 03-25-2023 Telephone encounter Celio guerrero [facility] Start: 03-14-2023 End: 03-14-2023 ambulatory Nely Cruz Other [employer] Other Start: 03-14-2023 [facility] Start: 02-11-2023 End: 02-11-2023 ambulatory Casandra Hassan Other [employer] Other Start: 02-11-2023 Office outpatient vi sit 15 minutes Casandra Hassan [facility] Start: 12-31-2022 End: 01-01-[address] MARKO OSCAR . Facility:[facility] Start: 11-26-2022 End: 11-27-[address] MARKO OSCAR . Facility:[facility] Start: 11-08-2022 End: 11-09-[address] THADDEUS ROD Facility:[facility] Start: 10-28-2022 End: 10-28-[address] MARKO OSCAR . Facility:[facility] Start: 07-13-2022 End: 07-13-2022 ambulatory Michelle Ernandez Other [employer] Other Start: 07-13-2022 Office outpatient vi sit 15 minutes Michelle Ernandez [facility] Start: 03-07-2022 End: 03-08-[address] THADDEUS ROD Facility:[facility] Start: 01-25-2022 Encounter for genera l adult medical examination without abnormal findings DR THADDEUS ROD [facility] Start: 01-21-2022 End: 01-22-[address] THADDEUS ROD Facility:[facility] Start: 01-21-2022 End: 01-22-2022 Encounter for general adult medical examination without abnormal findings DR THADDEUS ROD Facility:[facility] Start: 07-06-2021 End: 07-06-2021 ambulatory Michelle Ernandez Other [employer] Other Start: 07-06-2021 Office outpatient vi sit 15 minutes Michelle Oma [facility] Start: 06-17-2021 Office outpatient vi sit 15 minutes [facility] Start: 05-31-2021 Office outpatient vi sit 25 minutes [facility] Start: 08-27-2018 End: 08-27-2018 ambulatory BRENT KINNEY Facility:[facility] Procedures Date Procedure Procedure Detail Performing Clinician Start: 11-03-2024 Urine test visual color cmprsn meths Marko Celestina DO Work Phone: Start: 08-19-2024 Esophagogastroduodenoscopy Manihsa chamberlain REGIONAL SALES TRAINER Work Phone: Start: 08-09-2024 Urine culture Manisha Marc APRN Work Phone: Start: 06-25-2024 Urine culture Manisha Marc APRN Work Phone: Start: 06-15-2024 Bacteria identified in Urine by Culture REGIONAL SALES TRAINER Manisha Marc Work Phone: Start: 06-15-2024 Urine culture Manisha Marc APRN Work Phone: Start: 11-03-2023 Microscopic observation [Identifier] in Cervix by Cyto stain Gwen Cox DO Work Phone: Start: 10-08-2023 MRI of head REGIONAL SALES TRAINER Manisha Marc Work Phone: Start: 05-31-2021 Piperacillin/tazobactam Michelle Ernandez Other Start: 08-27-2018 extraction, erupted tooth or exposed root (elevation and/or forceps removal) BRENT KINNEY Start: 08-27-2018 removal of impacted tooth - soft tissue BRENT IKNNEY Start: 08-27-2018 Urine test visual color cmprsn meths BRENT KINNEY Plan of Treatment Date Care Activity Detail Author Start: 10-29-2027 Screening for malign ant neoplasm of cervix [facility] Start: 11-02-2026 Screening for malign ant neoplasm of cervix Pap Smear [facility] Start: 11-09-2025 End: 11-09-2025 Patient encounter procedure 11/09/2025 3:00 PM EDT Office Visit [facility] [address] [place] [phone] Marko Oscar, DO [address] [place] [address] [facility] Start: 11-30-2024 End: 11-30-2024 Professional / ancillary services management 11/30/2024 1:00 PM EDT Ancillary Procedure [facility] [address] [place] [phone] [facility] Start: 11-09-2024 End: 11-09-2024 Patient encounter procedure [facility] Start: 11-03-2024 End: 11-03-2025 US Pelvis US Pelvis w/ TV Imaging Routine PCOS (polycystic ovarian syndrome) Expected: 11/03/2024, Expires: 11/03/2025 [facility] Comment on above: Expected: 11/03/2024 , Expires: 11/03/2025 Start: 11-02-2024 End: 11-02-2024 Patient encounter procedure 11/02/2024 11:00 AM EDT Office Visit [facility] [address] [place] [address] Marko Oscar, DO [address] [address] [facility] Start: 08-19-2024 [facility] Start: 08-16-2024 End: 08-16-2024 Patient encounter procedure 08/16/2024 11:20 AM EST Office Visit [facility] [address] [place] [address] Consuelo Love, RPG DEVELOPER [address] [place] [id number] [facility] [address] [facility] Start: 07-12-2024 End: 07-12-2024 Patient encounter procedure 07/12/2024 8:00 AM EST Office Visit [facility] [address] [place] [phone] [facility] Start: 06-28-2024 End: 06-28-2024 Patient encounter procedure [facility] Comment on above: Cognitive impairment Start: 06-25-2024 Bacteria identified in Urine by Culture Urine Culture [facility] Start: 06-25-2024 Urine culture [facility] Start: 06-23-2024 End: 06-23-2024 Patient encounter procedure 06/23/2024 12:30 PM EST Office Visit [facility] [address] [place] [phone] Gwen Cox [address] [place] [address] [facility] Comment on above: Arrived Start: 06-21-2024 Patient referral [facility] Work Phone: Start: 06-15-2024 Bacteria identified in Urine by Culture Urine Culture [facility] Start: 06-15-2024 [facility] Start: 06-15-2024 Urine culture [facility] Start: 04-18-2024 Influenza vaccination Influenza Vacc ine (#1) [facility] CHLAMYDIA TRACHOMATI S (GENITO/STI) CHLAMYDIA TRACHOMATIS (GENITO/STI) Lab Routine Exposure to STD Ordered: 11/03/2024 [facility] Comment on above: Ordered: 11/03/2024 Chlamydia trachomati s DNA [Presence] in Unspecified specimen by SURI with probe detection [facility] Comprehensive metabo lic 2000 panel - Serum or Plasma [facility] CT Neck W contrast IV [facility] Cytology Cervical or vaginal smear or scraping study Pap Smear Pathology and Cytology Routine Well woman exam with routine gynecological exam Ordered: 11/03/2024 [facility] Work Phone: Comment on above: Ordered: 11/03/2024 Holter monitor study [facility] Human papilloma viru s DNA [Presence] in Unspecified specimen by Probe with amplification HPV DNA probe, amplified Microbiology Routine Well woman exam with routine gynecological exam Ordered: 11/03/2024 [facility] Comment on above: Ordered: 11/03/2024 MR Unspecified body region [facility] Neisseria gonorrhoea e DNA [Presence] in Unspecified specimen by SURI with probe detection [facility] Neisseria gonorrhoea e DNA [Presence] in Unspecified specimen by SURI with probe detection Neisseria gonorrhea DNA probe, direct Lab Routine Exposure to STD Ordered: 11/03/2024 [facility] Comment on above: Ordered: 11/03/2024 Patient Education [facility] Work Phone: Patient referral [facility] Work Phone: SURESWAB(R) ADVANCED VAGINITIS PLUS, TMA SURESWAB(R) ADVANCED VAGINITIS PLUS, TMA Pathology and Cytology Routine Vaginal discharge Ordered: 11/03/2024 [facility] Comment on above: Ordered: 11/03/2024 Trichomonas vaginali s DNA [Presence] in Unspecified specimen by SURI with probe detection [facility] Urine culture [facility] Immunizations Immunization Date Immunization Notes Care Provider Lillie rogers 03-03-2021 Do not use COVID-19 Pfizer 2 dose Manisha Rohrbacher Other [facility] 02-10-2021 Do not use COVID-19 Pfizer 2 dose Manisha Rohrbacher Other [facility] 08-03-2018 Toradol per 15 mg Michelle Dym ond Other [facility] Other Payers Date Payer Category Payer Self-pay [id number] 2022 Private Health Insurance 1990 Unknown [id number] 2.16.840.1.984015.3.579.2. 732 1991 Unknown [id number] 2.16.840.1.623307.3.579.2. 593 1991 Unknown [id number] 2.16.840.1.080849.3.579.2. 593 1991 Unknown [id number] 2.16.840.1.535001.3.579.2. 593 1991 Unknown [id number] 2.16.840.1.108315.3.579.2. 593 1991 Unknown [id number] 2.16.840.1.303376.3.579.2. 593 1991 Unknown [id number] 2.16.840.1.337508.3.579.2. 593 1991 Unknown [id number] 2.16.840.1.921823.3.579.2. 196 1991 Unknown [id number] 2.16.840.1.167021.3.579.2. 196 1991 Unknown [id number] 2.16.840.1.405387.3.579.2. 196 1991 Unknown [id number] 2.16.840.1.827264.3.579.2. 196 1991 Unknown [id number] 2.16.840.1.955981.3.579.2. 1259 1991 Unknown [id number] 2.16.840.1.607905.3.579.2. 1259 1991 Unknown [id number] 2.16.840.1.525285.3.579.2. 1259 1991 Unknown [id number] 2.16.840.1.791515.3.579.2. 1259 1991 Unknown [id number] 2.16.840.1.432876.3.579.2. 1259 1991 Unknown [id number] 2.16.840.1.238349.3.579.2. 1259 1991 Unknown [id number] 2.16.840.1.723039.3.579.2. 1259 1991 Unknown [id number] 2.16.840.1.891440.3.579.2. 1259 1958 Medicaid [id number] 1959 Unknown [id number] Unknown [place] [id number] Unknown [id number] 2.16.840.1.315442.3.579.2. 531 Unknown [id number] 2.16.840.1.272439.3.579.2. 531 Unknown [id number] 2.16.840.1.559669.3.579.2. 531 Unknown [id number] 2.16.840.1.313598.3.579.2. 531 Unknown [id number] 2.16.840.1.676801.3.579.2. 531 Social History Date Type Detail Facility Unknown if ever smoked [facility] Other Start: 03-11-2023 End: 03-16-2024 Sex Assigned At [employer] Other Start: 12-07-2021 End: 08-19-2024 Tobacco smoking status NHIS Never smoked tobacco (finding) [facility] Start: 1990 Sex Assigned At Female F [facility] Start: 05-31-2024 End: 11-03-2024 Alcoholic beverage intake Not Asked [facility] Start: 07-24-2023 End: 03-16-2024 History of Social function [facility] Start: 03-11-2023 Gender identity Identifies as female gender (finding) [facility] Start: 06-25-2024 End: 11-15-2024 Sex Female (finding) [facility] Goals Date Patient Goal Desired [...] Disorder of endocrine system 02/11/2023 Essential hypertension ([facility]/HCC) 02/11/2023 Herpes simplex of female genitalia 02/11/2023 [...] Morbid obesity with BMI of 50.0-59.9, adult ([facility]/HCC) Pain of ovary PCOS (polycystic ovarian syndrome) [...] nursing note reviewed. Exam conducted with a sulfur chloride operator present. Vitals: Estimated body mass index is [...] Marko Oscar DO documented in this encounter [facility] 08-24-2024 Evaluation note Diagnosis Onset Date [...] head and neck acute November 15 1:32pm [facility] Work Phone: 1(604) 192-464601-02-2025 [place] [address] Colonoscopy Procedure Report Signed Patient: Ashly Mehta MR#: [id number] : 1990 Acct:[id number] Age/Sex: 33 / F Adm Date: Loc: Room: Type: [facility] Attending Dr: Hilaria Burgos DO Copies [...] slowly withdrawn with the findings as below. Progreso bowel prep score was Fair. Findings: The [...] Burgos DO 08/19/24 0859 Signed By: 08/19/[address] [place], [place] 3506301-02-2025 [place] [address] EGD Procedure Note Signed Patient: Ashly Mehta MR#: [id number] : 1990 Acct:[id number] Age/Sex: 33 / F Adm Date: Loc: Room: Type: [facility] Attending Dr: Hilaria Burgos DO Copies [...] Burgos DO 08/19/24 0859 Signed By: 08/19/24 [facility]9 [facility]01-02-2025 [place] [address] Gastroenterology H&P Signed Patient: Ashly Mehta MR#: [id number] : 1990 Acct:[id number] Age/Sex: 33 / F Adm Date: 5 Loc: Room: Type: [facility] Attending Dr: Hilaria Burgos DO Copies to: DO Manisha Chakraborty APRN, MATCHBOOK MAKER~ Date of Service: 08/19/2024 HISTORY & PHYSICAL: [...] DO 08/19/24 0859 Signed By: 08/19/24 0954 [facility]12-30-2024 History of Present illness Narrative [...] psychiatrist plans to get her a case finishing machine adjuster soon. The patient reports difficulty maintaining jobs [...] wrist extensors , wrist flexor , and gift officer strength 5/5. LUE strength deltoid , biceps , triceps , wrist extensors , wrist flexor , and gift officer strength 5/5. RLE strength iliopsoas, quadriceps, tibialis [...] reflex 2+. LLE knee reflex 2+. Coordination: Hxslrk-cg-upjd testing normal. Rapid alternating movements are normal. Gait: Normal. Review and summary of old records: Neuropsychological evaluation at [facility] on 07/12/2024: Current neuropsychologicalevaluation demonstrates, [...] psychiatrist to establish care with a case finishing machine adjuster, and I believe this is a good [...] NP [facility] documented in this encounterSaint Joseph Health CenterUvoxbiiazu06-69-0783 Evaluation note* Diagnosis Onset Date Resolution Status [...] 10:57am Cellulitis acute August 28, 2024 1:44pm [facility] Work Phone: 1(492) 688-415211-25-2024 History of Present illness Narrative* Mario Mcknight, PhD - 07/12/2024 8:00 AM EST Images from the original note were not included. Neuropsychology Mario Mcknight, PhD NEUROPSYCHOLOGICAL EVALUATION Ashly Metha is a 33 y.o. female referred for [...] any history of alcohol/substance abuse or smoking. [place] language [place]ian. Completed an associate's degree and was 24 credits shy of a bachelor's degree. Struggled academically and with attention. 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 Responsible for tending to the needs of [...] design >16th %ile. Motor/Speed of Processing: Right-handed. Automotive Repair Technician strength 24th %ile with right- hand, 62nd [...] Learning of a word list 31st %ile (9-1-71-13-13), delayed recall 16th %ile. Recognition discriminability 69th [...] individual. Please contact me with anyquestions at [phone]. documented in this encounterSaint Joseph Health CenterFenoqdplub28-78-6862 History of Present illness Narrative* Mario Mcknight, [...] any history of alcohol/substance abuse or smoking. [place] language [place]ian. Completed an associate's degree and was 24 credits shy of a bachelor's degree. Struggled academically and with attention. 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 Responsible for tending to the needs of [...] Morbid obesity with BMI of 50.0-59.9, adult ([facility]/HCC) Pain of ovary PCOS (polycystic ovarian syndrome) Pre-diabetes Right ovarian cyst Seasonal affective disorder (CMS/HCC) Secondary amenorrhea Seizure disorder ([facility]/HCC) MEDICATIONS: Current Outpatient Medications Medication Instructions albuterol [...] of this individual. Please contact me with As Seen on TV at [phone]. documented in this encounterSaint Joseph Health CenterLnetuzkzxe05-80-7594 History of Present illness Narrative* Gwen Cox, [...] , wrist extensors , wrist flexor , gift officer strength 5/5. LUE Strength deltoid , biceps , triceps , wrist extensors , wrist flexor , gift officer strength 5/5. RLE Strength illopsoas, quadriceps, tibialis [...] reflex 2+ . Valiente's sign negative. Coordination: Xrmuon-mx-sjmz testing and rapid alternating movements are normal [...] plan, and return instructions documented in this encounterSaint Joseph Health CenterOefuhgldlc31-42-3475 Evaluation note* Diagnosis Onset Date Resolution Status [...] Excessive sweating acute Decemb er 2023 3:46pm [facility] Work Phone: 1(539) 352-753310-29-2024 Evaluation note* Diagnosis Onset Date Resolution Status [...] status unknown deleted August 24, 2024 10:57am [facility] Work Phone: 1(159) 950-671010-29-2024 Evaluation note* Diagnosis Onset Date Resolution Status Admit Date Acute UTI acute June 15, 2024 9:22am Fatty liver disease, nonalcoholic acute June 21 11:13am Frequent UTI acute June 11:13am Obstructive sleep apnea acute N ovember 2023 11:13am UTI (urinary tract infection) acute June 21, 2024 11:13am Dysuria acute June 25, 2024 9:05am Dysuria acute August 09, 2024 3:46pm Excessive sweating [facility] Encounter for antibody response examination acute August 10:57am History of seizures acute Augua ry 2024 10:57am Hypertension acute August 24, 2024 10:57am Iron deficiency anemia acute Ja nuary 2024 10:57am PCOS (polycystic ovarian syndrome) acute August 24 10:57am Severe obesity (BMI >= 40) acute August 24, 2024 10:57am Wellness examination acute 2024 10:57am [facility] Work Phone: 1(326) 974-939009-04-2024 Evaluation note* Diagnosis Onset Date Resolution Status [...] tract infection) acute June 21, 2024 11:13am [facility] Work Phone: 1(834) 249-473209-04-2024 Evaluation note* Diagnosis Onset Date Resolution Status [...] 11:13am Dysuria acute June 25, 2024 9:05am [facility] Work Phone: 1(223) 113-871301-02-2024 Evaluation note* Encounter Date Diagnosis Assessment Notes Treatment Notes Treatment Clinical Notes Aug, Obesity, unspecified classification, unspecified obesity type, unspecified whether serious comorbidity present (ICD-10 - E66.9) Aug, BMI 50.0-59.9, adult (ICD-10 - Z68.43) Aug, Other Summary of Visi t: (A) Importnace of planning to simplify meals (B) Deconstructed Meals (C) Sharing meal ideas (D) Plate method for meal planning ; [employer] [facility] Other 12-27-2023 Evaluation note* Encounter Date Diagnosis [...] You have been given relevant education handouts. [facility] Other 11-28-2023 Evaluation note* Encounter Date Diagnosis [...] voice recognition software. Please excuse errors in derrick car operator. Jun, Dietary surveillance and counseling (ICD-10 [...] metformin 1000 mg total daily, managed by MANUFACTURING DESIGN ENGINEER Jun, Asthma (ICD-10 - J45.909) Jun, Migraine (ICD-10 - G43.909) Jun, Primary hypertension (ICD-10 - I10) Currently on pharmacotherapy Potential for overtreatment given lightheadedness Jun, Other An additional 9 minutes was spent counseling the patient on behavior modification including proper nutrition and physical activity. [facility] Other 11-20-2023 Evaluation note* Encounter Date Diagnosis [...] until you feel better. You may take wrhe-lju-burudrk Imodium for diarrhea as needed. Avoid dairy foods as well as greasy fried foods. Follow-up with your physician if no improvement in 2 to 3 days. May return to work on Jun, Diarrhea, unspecified type (ICD-10 - R19.7) Diarrhea: adult home care material was printed [facility] Other 11-12-2023 Evaluation note* Encounter Date Diagnosis [...] to 3-day Jun, Bronchitis (ICD-10 - J40) [facility] Other 10-25-2023 Evaluation note* Encounter Date Diagnosis Assessment Notes Treatment Notes Treatment Clinical Notes May, Degenerative lumbar disc (ICD-10 - M51.36) L4-5 Pt would like a referral to pain management regarding her chronic back pain. Her last x-ray of the lumbar spine was completed 10/2022 at [facility]--reviewed and in scanned documents. Referral placed. [...] disorder (ICD-10 - F31.81) Referral placed to [facility] for medication mangement. [facility] Other 09-19-2023 Evaluation note* Encounter Date Diagnosis Assessment Notes Treatment Notes Treatment Clinical Notes Apr, Exposure to head lice (ICD-10 - Z20.7) Discussed with patient exam is without any signs of current lice infection. May return to work tomorrow. Patient completed next treatment yesterday. Patient verbalized understanding. [facility] Other 09-14-2023 Evaluation note* Encounter Date Diagnosis Assessment Notes Treatment Notes Treatment Clinical Notes Apr, Primary hypertension (ICD-10 - I10) [facility] Other 09-13-2023 Evaluation note* Encounter Date Diagnosis [...] (ICD-10 - R73.01) Will obtain records from [facility] for most recent labs. [...] Low back pain, unspecified (ICD-10 - M54.50) [facility] Other 09-12-2023 Evaluation note* Encounter Date Diagnosis [...] 2) Aim for < 45 g carb/meal [facility] Other 08-08-2023 Evaluation note* Encounter Date Diagnosis [...] voice recognition software. Please excuse errors in derrick car operator. Mar, Dietary surveillance and counseling (ICD-10 [...] as sweet tea, replace ice cream with [place] Island[place] yogurt, use protein shake in the a.m. [...] with the patient, and documenting clinical information. [facility] Other 06-27-2023 Evaluation note* Encounter Date Diagnosis [...] 7 days, sooner if significantly worsening symptoms. [facility] Other 11-26-2022 Evaluation note* Encounter Date Diagnosis [...] 3 days. Off work today and tomorrow [employer] Other 11-19-2021 Evaluation note* Encounter Date Diagnosis [...] Patient care instructions given in writting by [facility] document. [facility] Other 10-31-2021 Evaluation note* Encounter Date Diagnosis [...] Patient care instructions given in writting by [facility] document. [facility] Other 10-14-2021 Evaluation note* Encounter Date Diagnosis Assessment Notes Treatment Notes Treatment Clinical Notes May, Dysuria (ICD-10 - R30.0) May, Urinary tract infection, site not specified (ICD-10 - N39.0) May, Hematuria, unspecified (ICD-10 - R31.9) [facility] Other Evaluation noteNo InformationNort payworks Other Evaluation noteNo assessment information available [facility] Work Phone: Evaluation note* Diagnosis Onset Date Resolution Status Dietary surveillance and counseling acute Exercise counseling acute Food insecurity acute PCOS (polycystic ovarian syndrome) acute Prediabetes acute Severe obesity (BMI >= 40) [facility] Work Phone: Evaluation note* Diagnosis Onset Date Resolution Status Dietary surveillance and counseling acute Exercise counseling acute Food insecurity acute PCOS (polycystic ovarian syndrome) acute Prediabetes acute Severe obesity (BMI >= 40) a [facility] Lightheadedness acute Menorrhagia acute Palpitations acute [facility] Work Phone: Evaluation note* Diagnosis Onset Date Resolution Status Dietary surveillance and counseling acute Exercise counseling acute Food insecurity acute PCOS (polycystic ovarian syndrome) acute Prediabetes acute Severe obesity (BMI >= 40) a cute Lightheadedness acute Menorrhagia acute Palpitations acute Dietary surveillance and counseling acute Exercise counseling acute Severe obesity (BMI >= 40) a [facility] Work Phone: Evaluation note* Diagnosis Onset Date Resolution Status Lightheadedness acute Menorrhagia acute Palpitations acute Dietary surveillance and counseling acute Exercise counseling acute Severe obesity (BMI >= 40) a [facility] Work Phone: Evaluation note* Diagnosis Onset Date Resolution Status Aphasia acute History of seizures acute Memory loss acute Migraine acute [facility] Work Phone: Evaluation note* Diagnosis Onset Date Resolution Status Aphasia acute Apnea acute Fatigue acute History of seizures acute Loud snoring acute Memory loss acute Migraine acute Morbid obesity acute Acute UTI acute [facility] Work Phone: Evaluation note* Diagnosis Onset Date Resolution Status Aphasia acute Apnea acute Fatigue acute History of seizures acute Loud snoring acute Memory loss acute Migraine acute Morbid obesity acute Acute UTI acute Fatty liver disease, nonalcoholic acute Frequent UTI acute UTI (urinary tract infection) acute [facility] Work Phone: Evaluation note* Diagnosis [...] HealthcareHistory and physical note Author Hilaria Burgos [facility] Note Date/Time August 19, 2024 9: 54am [facility] [address] [place] [address] Gastroenterology H&P Signed Patient: Ashly Mehta MR#: [id number] : 1990 Acct:[id number] Age/Sex: 33 / F Adm Date: Loc: Room: Type: [facility] Attending Dr: Hilaria Burgos DO Copies to: Hilaria Burgos, DO Manisha Marc APRN, MATCHBOOK MAKER~ Date of Service: 08/19/2024 HISTORY & PHYSICAL: [...] signed by Hilaria Burgos DO> 08/19/24 0954 [facility] Work Phone: history general Narrative [...] History Hospitalized for blood l oss 2010 [facility] Other Hisrxvj general Narrative - Reported* Type Description Date [...] History Hospitalized for blood l oss 2010 [facility] Other history general Narrative - Reported* Type [...] History Hospitalized for blood l oss 2010 [facility] Other history general Narrative - Reported* Type [...] History Hospitalized for blood l oss 2010 [facility] Other history general Narrative - Reported* Type [...] History Hospitalized for blood l oss 2010 [facility] Other history general Narrative - Reported* Type [...] History Hospitalized for blood l oss 2010 [facility] Other history general Narrative - Reported* Type [...] History Hospitalized for blood l oss 2010 [facility] Other Hospital Discharge instructionsAmbulatory Orders* Referral to Gastroenterology Time Frame: 06/21/24, Location: None Selected * Referral to Urology Time Frame: 06/21/24, Location: None Selected [facility] Work Phone: Reason for referral (narrative)* Reason *FU 06/20 would [place] a referral to pscyiatrist -- was recently diagnosed with bipolar and would like medication management. Diagnosis 1 Bipolar 2 disorder ( F31.81) Referral Organization [facility] [employer] Damion tsang Referring Provider First Name Manisha Referring Provider Last Name Charlyacher Referring Provider Specialty Nurse Pract itgris Referred Organization [facility] [place] Referred Address [address],[place], [place],[address] Referred Provider Specialty Psychiatry Referral Priority Routine General Notes Paola Henderson 01:25:30 PM >received today, not sure if [facility] does medication management, waiting for notes to be locked Paola Henderson 06/13/2023 10:34:39 AM >notes locked, referral faxed Clinical Notes p: [id number] f: [id number] [facility] Reason *FU 06/20 would sherif groves a referral to pain management for other options for pain control for back pain Diagnosis 1 Degenerative lumbar disc (M51.36) Referral Organization [facility] [employer] sharan Referring Provider First Name Manisha Referring Provider Last Name Charlyacher Referring Provider Specialty Nurse Pract ernesto Referred Organization [facility] Referred Provider Yrn Parsons Referred Address [address], [place],[address] Referred Provider Specialty Pain Medicin e Referral Priority Routine General Notes Paola Henderson 01:21:23 PM >received today, waiting for notes to be locked Paola Henderson 06/13/2023 10:25:26 AM >notes locked, referral faxed Clinical Notes f: [phone] [employer] Other Reason for visit Narrative* Consultation (Routine) - Closed Specialty Diagnoses / Procedures Referred By Contac t Referred To Contact Neurology Diagnoses Aphasia Personal history of other specified conditions Other amnesia Procedures ME OFFICE/OUTPATIENT NEW LOW MDM 30 MINUTES Manisha Marc NP [address] [facility] [place] [address] Phone: tel: fax: Sugey Dinero MD [address] [place] [address] Phone: tel: fax: Referral ID Status Reason Start Date Expiration Date V isits Requested Visits Authorized [id number] Closed Consult and Treat 05/28/2024 11/24/2024 1 1 [facility] HealthcareReason for visit Narrative* Consultation (Routine) - Closed Specialty Diagnoses / Procedures Referred By Contac t Referred To Contact Psychology Diagnoses Cognitive impairment Procedures ME OFFICE/OUTPATIENT NEW HIGH MDM 60 MINUTES Gwen Cox DO [address] [place] [address] Phone: tel: fax: Mario Mcknight, PhD [address] [address] Phone: tel: fax: Referral ID Status Reason Start Date Expiration Date V isits Requested Visits Authorized [id number] Closed Specialty Services Required 06/23/2024 12/20/2024 1 1 [facility] Healthcare Summary Purpose Family History No Family [...] 24, 2024 10:57am PCOS (polycystic ovarian syndrome) [facility] 2024 10:57am Severe obesity (BMI >= 40) [...] CREATED AUTHOR AUTHOR'S ORGANIZ ATION 01/01/2023 [facility] DATE CREATED AUTHOR AUTHOR'S ORGANIZ ATION 01/30/2024 [facility] DATE CREATED AUTHOR AUTHOR'S ORGANIZ ATION 06/25/2024 [facility] DATE CREATED AUTHOR AUTHOR'S ORGANIZ ATION 12/02/2024 [facility] dical Specialists EPIC DATE CREATED AUTHOR AUTHOR'S ORGANIZ ATION 01/14/[address] [facility] ysician Group REASON FOR VISIT (unrecogniz ed section and content) Reason Comments Memory difficulty Reason Comments Well Women Visit STI Screening Care Teams (unrecognized sec tion and content) Team Status: Active Member Role Status Dates Manisha Marc APRN RPG DEVELOPER-C Primary Care Provider Active Team Status: Active Member Role Status Dates Manisha Marc APRN RPG DEVELOPER-C Primary Care Provider, Attending Provider Active Team Status: Inactive Member Role Status Dates Manisha Marc APRN RPG DEVELOPER-C Primary Care Provider Active Celio Mullins DO Attending Provider Active Team Status: Inactive Member Role Status Dates Manisha Marc APRN RPG DEVELOPER-C Primary Care Provider Active Clinton Frazier MD Attending Provider Active Team Status: Inactive Member Role Status Dates Manisha Marc APRN RPG DEVELOPER-C Primary Care Provider Active Start: July 032022 End: July 03, 2023 Celio Mullins DO Attending Provider Active St art: July 03, 2023 End: July 03, 2023 Team Status: Active Member Role Status Dates Manisha Marc APRN RPG DEVELOPER-C Primary Care Provider Active Start: July 032022 Edward Gilmore MD Attending Provider Active Start: July 03, 2023 Team Status: Inactive Member Role Status Dates Michelle Ernandez RPG DEVELOPER-C Attending Provider Active S tart: July 07, 2023 End: July 07, 2023 Team Status: Inactive Member Role Status Dates Celio Mullins DO Attending Provider Active St art: July 15, 2023 End: July 15, 2023 Team Status: Inactive Member Role Status Dates Manisha Marc APRN RPG DEVELOPER-C Primary Care Provider Active Start: July End: July 19, 2023 Clinton Frazier MD Attending Provider Active Start: July 19, 2023 End: July 19, 2023 Team Status: Inactive Member Role Status Dates Manisha Marc APRN RPG DEVELOPER-C Attending Provider Act rafal Start: August 13, 2023 End: August 13, 2023 Team Status: Inactive Member Role Status Dates Nely Cage [facility] Attending Provider Active Start: August 19, 2023 End: August 19, 2023 Team Status: Active Member Role Status Dates Manisha Marc APRN RPG DEVELOPER-C Primary Care Provider, Attending Provider Active Start: August 19, 2023 Team Status: Inactive Member Role Status Dates Manisha Marc APRN RPG DEVELOPER-C Attending Provider Act rafal Start: September 03, 2023 End: September 03, 2023 Team Status: Inactive Member Role Status Dates Manisha Marc APRN RPG DEVELOPER-C Primary Care Provider Active Start: October 012023 End: October 01, 2023 Celio Mullins DO Attending Provider Active St art: October 01, 2023 End: October 01, 2023 Team Status: Active Member Role Status Dates Manisha Marc APRN RPG DEVELOPER-C Primary Care Provider Active Start: August 142022 Edward Gilmore MD Attending Provider Active Start: August 14, 2023 Team Status: Active Member Role Status Dates Manisha Marc APRN RPG DEVELOPER-C Primary Care Provider, Attending Provider Active Start: October 06, 2023 Team Status: Inactive Member Role Status Dates Manisha Marc APRN RPG DEVELOPER-C Primary Care Provider Active Start: October 082023 End: October 08, 2023 Gwen Cox DO Attending Provider Active Start: October 08, 2023 End: October 08, 2023 Team Status: Active Member Role Status Dates Manisha Marc REGIONAL SALES TRAINER RPG DEVELOPER-C Primary Care Provider, Attending Provider Active Start: October 30, 2023 Team Status: Inactive Member Role Status Dates Manisha Marc REGIONAL SALES TRAINER RPG DEVELOPER-C Primary Care Provider, Attending Provider Active Start: November 03, 2023 End: November 03, 2023 Team Status: Active Member Role Status Dates Manisha Marc APRN RPG DEVELOPER-C Primary Care Provider Active Start: August Edward Gilmore MD Attending Provider Active Start: September 10, 2023 Team Status: Inactive Member Role Status Dates Manisha Marc APRN RPG DEVELOPER-C Primary Care Provider Active Start: November 26, 2023 End: November 26, 2023 Celio Mullins DO Attending Provider Active St art: November 26, 2023 End: November 26, 2023 Team Status: Active Member Role Status Dates Manisha Marc APRN RPG DEVELOPER-C Primary Care Provider Active Start: January 01, 2024 Edward Gilmore MD Attending Provider Active Start: January 01, 2024 Team Status: Active Member Role Status Dates Manisha Marc APRN RPG DEVELOPER-C Primary Care Provider Active Start: April 03, 2024 Edward Gilmore MD Attending Provider Active Start: April 03, 2024 Team Status: Active Member Role Status Dates Manisha Marc APRN RPG DEVELOPER-C Primary Care Provider Active Start: April 12, 2024 Jaymie Griffin DO Attending Provider Active Start: April 12, 2024 Team Status: Inactive Member Role Status Dates Manisha Marc APRN RPG DEVELOPER-C Primary Care Provider, Attending Provider Active Start: April 21, 2024 End: April 21, 2024 Team Status: Active Member Role Status Dates Manisha Marc APRN RPG DEVELOPER-C Primary Care Provider Active Start: April 12, 2024 Agusto Rojas DO Attending Provider Active Sta rt: April 12, 2024 Team Status: Active Member Role Status Dates Manisha Marc APRN RPG DEVELOPER-C Primary Care Provider Active Start: April 15, 2024 Agusto Rojas DO Attending Provider Active Sta rt: April 15, 2024 Team Status: Active Member Role Status Dates Manisha Marc APRN RPG DEVELOPER-C Primary Care Provider Active Start: April 192023 Edward Gilmore MD Attending Provider Active Start: May 13, 2024 Team Status: Active Member Role Status Dates Manisha Marc APRN RPG DEVELOPER-C Primary Care Provider, Attending Provider Active Start: June 07, 2024 Team Status: Inactive Member Role Status Dates Manisha Marc APRN RPG DEVELOPER-C Primary Care Provider Active Start: May End: [...] Member Role Status Dates Manisha Marc APRN RPG DEVELOPER-C Primary Care Provider, Attending Provider Active Start: June 21, 2024 End: June 21, 2024 Picker Tender Relationship Specialty Start Date End Date Thaddeus Rod MD [address] [place] [address] PCP - General Family Medicine 04/24/23 Picker Tender Relationship Specialty Start Date End Date Thaddeus Rod MD [address] [place] [address] PCP - General Family Medicine 04/24/23 Picker Tender Relationship Specialty Start Date End Date Thaddeus Rod MD [address] [place] [address] PCP - General Family Medicine 04/24/23 Team Status: Inactive Member Role Status Dates Manisha Marc APRN RPG DEVELOPER-C Primary Care Provider, Attending Provider Active Start: June 25, 2024 End: June 25, 2024 Team Status: Inactive Member Role Status Dates Manisha Marc APRN RPG DEVELOPER-C Attending Provider Act rafal Start: June 25, 2024 End: June 25, 2024 Picker Tender Relationship Specialty Start Date End Date Thaddeus Rod MD [address] [place] [facility] [place] [address] PCP - General Family Medicine 04/24/23 Picker Tender Relationship Specialty Start Date End Date Thaddeus Rod MD [address] [place] [address] PCP - General Family Medicine 04/24/23 Picker Tender Relationship Specialty Start Date End Date Thaddeus Rod MD [address] [place] [address] PCP - General Family Medicine 04/24/23 Team Status: Active Member Role Status Dates Tiffanie Villalobos MD Attending Provider Active St art: June 29, 2024 Team Status: Active Member Role Status Dates Manisha Marc APRN RPG DEVELOPER-C Primary Care Provider Active Start: August 032023 Edward Gilmore MD Attending Provider Active Start: August 03, 2024 Team Status: Inactive Member Role Status Dates Manisha Marc APRN RPG DEVELOPER-C Primary Care Provider, Attending Provider Active Start: August 09, 2024 End: August 09, 2024 Team Status: Inactive Member Role Status Dates Manisha Marc APRN RPG DEVELOPER-C Attending Provider Active Start: July End: August 09, 2024 PHYSICIAN NO FAMILY Primary Care Provider Active Start: August 09, 2024 End: August 09, 2024 Team Status: Inactive Member Role Status Dates Hilaria Burgos DO Attending Provider Active St art: August 19, 2024 End: August 19, 2024 Manisha Marc APRN RPG DEVELOPER-C Primary Care Provider Active Start: August 19, 2024 End: August 19, 2024 Team Status: Active Member Role Status Dates Hilaria Burgos DO Attending Provider, Other Provider Active Start: August 19, 2024 Manisha Marc APRN RPG DEVELOPER-C Primary Care Provider Active Start: August Team Status: Inactive Member Role Status Dates Manisha Marc APRN RPG DEVELOPER-C Primary Care Provider, Attending Provider Active Start: August 24, 2024 End: August 24, 2024 Team Status: Active Member Role Status Dates Manisha Marc APRN RPG DEVELOPER-C Primary Care Provider Active Start: August 24, 2024 Edward Gilmore MD Attending Provider Active Start: August 24, 2024 Team Status: Inactive Member Role Status Dates Manisha Marc APRN RPG DEVELOPER-C Primary Care Provider Active Start: August End: August 28, 2024 Viry Holder APRN Attending Provider Active S tart: August 28, 2024 End: August 28, 2024 Team Status: Active Member Role Status Dates Manisha Marc APRN RPG DEVELOPER-C Primary Care Provider Active Start: August Edward Gilmore MD Attending Provider Active Start: August 27, 2024 Team Status: Inactive Member Role Status Dates Manisha Marc APRN RPG DEVELOPER-C Primary Care Provider Active Start: September 272024 End: September 27, 2024 Viry Holder APRN Attending Provider Active S tart: September 27, 2024 End: September 27, 2024 Picker Tender Relationship Specialty Start Date End Date Thaddeus Rod MD [address] [place] [address] PCP - General Family Medicine 04/24/23 Team Status: Active Member Role Status Dates Manisha Marc APRN RPG DEVELOPER-C Primary Care Provider Active Start: October 122024 Tiffanie Villalobos MD Attending Provider Active St art: October 12, 2024 Team Status: Active Member Role Status Dates Manisha Marc APRN RPG DEVELOPER-C Primary Care Provider Active Start: November 03, 2024 Marko Oscar DO Attending Provider Active Start : November 03, 2024 Team Status: Active Member Role Status Dates Manisha Marc APRN RPG DEVELOPER-C Primary Care Provider Active Start: November 09, 2024 Edward Gilmore MD Attending Provider Active Start: November 09, 2024 Team Status: Inactive Member Role Status Dates Manisha Marc APRN RPG DEVELOPER-C Primary Care Provider, Attending Provider Active Start: [...] BE BASED ON THE PRIMARY CLINICAL RECORDS. [employer] [facility]. provides no warranty or guarantee of the accuracy or completeness of information in this document.
[2025-01-24 10:09] VITALS: BP 123/75; PULSE 84; TEMP 36.6; O2SAT 99
[2025-01-24 10:48] VITALS: BP 140/77; PULSE 74; O2SAT 99
[2025-01-24 10:49] VITALS: BP 142/73; PULSE 77; O2SAT 99
[2025-01-24] MEDS: 0.9 % SODIUM CHLORIDE 10 ML SYRINGE - SALINE FLUSH INJ (10:51)
[2025-01-24] MEDS: BUPIVACAINE HCL 0.25% PF 25 MG/10 ML VIAL INJ (10:51)
[2025-01-24] MEDS: LIDOCAINE HCL 2% 400 MG/20 ML MDV 3 ML INJ (10:52)
[2025-01-24] MEDS: METHYLPREDNISOLONE ACETATE 80 MG/ML VIAL INJ (10:52)
[2025-01-24] MEDS: IOHEXOL 240 MG/ML - 10 ML VIAL 24 MG INJ (10:52)
--- NOTE | 2025-01-24 10:54 | W.PM.PROCNOT ---
Date of procedure: 01/24/25 Pre-op diagnosis: Pain due to lumbar stenosis with neurogenic claudication Post-op diagnosis: same as pre-op Procedure: Procedure: Bilateral L4-5 transforaminal epidural steroid injection Medications: Bupivacaine 0.25% 2cc, lidocaine 2% 1cc, depomedrol 80mg The patient was seen and examined in the preoperative holding area.? Informed consent was obtained and placed on the chart.? Patient was brought to the medical procedure unit and placed in the prone position where a timeout was completed verifying the correct patient, procedure site, position, and planned special equipment using sterile aseptic technique.? Under direct fluoroscopic visualization a 25-gauge Quincke tipped spinal needle was advanced at level left L4-5 to the designated neural foramen where contrast dye was injected to show adequate spread.? There was no evidence of vascular or adverse uptake.? Epidural spread was appreciated.? The above-mentioned injectate was then placed in a 1.5 mL aliquot preceded by negative aspiration.? The needle was removed. The same procedure, at the same level, was completed on the opposite side. ? Patient was taken to the postprocedural recovery area and monitored for an appropriate length of time before found suitable for discharge in the accompaniment of a responsible adult. Anesthesia: Local Surgeon: Bud Combs Pathology: none sent Condition: stable Disposition: no change
== END 2025-01-24 11:00 | disposition home or self-care (01) ==
LOC: SURGOUT 07:57
PROVIDERS: PCP Nurse Practitioner Family; Visit Provider Anesthesiology
DX: M54.50 Low back pain, unspecified (principal); M48.062 Spinal stenosis, lumbar region with neurogenic claudication
CPT/HCPCS: 64483; J0665; J1010; Q9966

== ENCOUNTER 2025-02-10 14:00 | Outpatient (OUT) | payer OTHER, SELFPAY ==
--- OUTSIDE RECORDS SUMMARY | 2024-12-08 10:11 | XMS_ITS | Continuity of Care Document ---
Author Organization [facility] Address [address] [place] [address] Phone Care Team Providers Care Fiberglass Insulation Installer Name Role Phone Serjio DIAZS, Fermin Unavailable Unavailable Allergies, Adverse Reactions, Alerts Substance [...] Active carbamazepine ER 100 mg capsule,extended release [id number] - Active naproxen sodium 550 mg tablet [...] Prophylaxis Adult Nutrit Couns For Control Of [place] Dis Nov Oral Hygiene Instruction Resin Composite 2s; Posterior Oral Hygiene Instruction Extract; Erupted Th/exposted Rt 025 Oral Hygiene Instruction Intraoral-complete Series (bw) 25 Oral Hygiene Instruction Comp Oral Eval New/estab Patient 2024 Extract; Erupted Th/exposted Rt 025 Oral Hygiene Instruction Intraoral-periapical 1st Film Bitewig-single Film Limited Oral Eval Nutrit Couns For Control Of [place] Dis Sep Extract; Erupted Th/exposted Rt 024 Nutrit Couns For Control Of [place] Dis Jun Aetsbuzip-kgwtjdpvqj-evqx Additional Jun Bitewig-single Film Oral Hygiene Instruction Limited Oral Eval Tzgdwbmlu-fguikvhzgx-acvz Additional Feb Bitewig-single Film Oral Hygiene Instruction Limited Oral Eval Advance Directives Directive Yes / No Effective Date File Name No Information Encounters Encounter Description Practice Location Reason(s) For Visit Diagnoses Date Provider Providers Copied on Encounter [facility], [address] [place] [address], [id number], tel:[phone] Dental Clinic fill (chief complaint) No Information Serjio SENIOR Fermin. [address] [place] [address], [id number] , [place]. tel:[phone] [facility], [address] [place] [address], [id number], [place] tel:[phone] Dental Clinic Encounter for screening for dental disorders Serjio SENIOR Fermin. [address] [place] [address], [id number] , . tel:[phone] [facility], [address] [place] [address], [id number], tel:[phone] Dental Clinic pa (chief complaint) Body mass index [BMI] 50.0-59.9, adultEncounter for screening for dental disorders [facility] Fermin. [address] [place], [place], [id number] , [place]. tel: [phone] [facility], [address] [place], [id number], [place] tel:[phone] Dental Clinic Encounter for screening for dental disorders [facility] Fermin. [address] [place], [place], [id number] , [place]. tel: [phone] [facility], [address] [place] [address], [id number], [place] tel:[phone] Dental Clinic ext (chief complaint) Encounter for screening for dental disorders [facility] Fermin. [address] [place], [place], [id number] , [place]. tel: [phone] [facility], [address] [place] [address], [id number], [place] tel:[phone] Dental Clinic dn (chief complaint) Encounter for screening for dental disorders [facility] Fermin. [address] [place] [address], [id number] , [place]. tel: [phone] [facility], [address] [place] [address], [id number], [place] tel:[phone] Dental Clinic ext (chief complaint) Encounter for screening for dental disorders [facility] Fermin. [address] [place], [place], [id number] , [place]. tel: [phone] [facility], [address] [place] [address], [id number], [place] tel:[phone] Dental Clinic DN (chief complaint) Body mass index [BMI] 50.0-59.9, adultEncounter for screening for dental disorders Jason Cuellar. [address] [place], [place], [id number] , [place]. tel: [phone] [facility], [address] [place] [address], [id number], [place] tel:[phone] Dental Clinic ext (chief complaint) Encounter for screening for dental disorders Jason Cuellar. [address] [place], [place], [id number] , [place]. tel:[phone] [facility], [address] [place] [address], [id number], [place] tel:[phone] Dental Clinic dl (chief complaint) Encounter for screening for dental disorders Jason Cuellar. [address] [place], [place], [id number] , [place]. tel:[phone] [facility], [address] [place] [address], [id number], [place] tel:[phone] Dental Clinic de (chief complaint) Encounter for screening for dental disorders Jason Cuellar. [address] [place], [place], [id number] , [place]. tel:[phone] Family History Family Member Type Diagnosis Age At Onset No Information Payers Payer name Insurance type Covered constitution party ID Payton florentino(joni) D [facility] Medicaid [facility] [id number] D Medicaid [facility] [id number] Social History Type Description Quantity Date Captured [...] Of Treatment Date Type Action Status Goal PRAPARE ASSESSMENT. Due on A due Goal Tdap Vaccine. Due on 2024 due Goal Hepatitis C scre ening. Due on due Goal Unhealthy drug u se screening. Due on due Goal Influenza vaccine. Due on Ap due Goal Tdap. Due on due Goal RLP. Due on due Goal HPV. Due on due Goal Depression scree laith. Due on due Goal Tdap. Due on due Goal Unhealthy [...] nt education, guidance, and counseling completed Goal Influenza vaccine. Due on Md due Goal PRAPARE ASSESSMENT. Due on M due Goal Unhealthy drug u se screening. Due on due Goal HPV. Due on due Goal RLP. Due on due Goal Tdap. Due on due Goal Depression scree laith. Due on due Goal Tdap Vaccine. Due on 2024 due Goal Hepatitis C scre ening. Due on due Goal PRAPARE ASSESSMENT. Due [...] due Goal RLP. Due on due Goal Depression scree laith. Due on due Goal Influenza vaccine. Due on due Goal Hep A. Due on du e Goal Unhealthy drug u se screening. Due on due Goal HPV. Due on due Goal Depression [...] Goal PRAPARE ASSESSMENT. Due on due Goal Hep A. Due on du e Goal PRAPARE ASSESSMENT. Due on N due Goal RLP. Due on due Goal Unhealthy drug u se screening. Due on due Goal HPV. Due on due Goal Tdap. Due on due Goal Depression scree laith. Due on due Goal Hepatitis C scre ening. Due on due Goal Influenza vaccine. Due on due Goal Tdap Vaccine. Due on 2023 due Goal Hep A. Due on du e Goal Unhealthy drug u se screening. Due on due Goal HPV. Due on due Goal PRAPARE ASSESSMENT. Due on N due Goal Tdap Vaccine. Due on 2023 due Goal Influenza vaccine. Due on due Goal Depression scree laith. Due on due Goal Hepatitis C scre ening. Due on due Goal Tdap. Due on due Goal RLP. Due on due Goal Unhealthy drug u se screening. Due on due Goal Tdap Vaccine. Due on 2023 due Goal Depression scree laith. Due on due Goal Hepatitis C scre ening. Due on due Goal Influenza vaccine. Due on due Goal Tdap. Due on due Goal RLP. Due on due Goal PRAPARE ASSESSMENT. Due on due Goal HPV. Due on due Referral Ordered: Manisha Marc [...]
--- OUTSIDE RECORDS SUMMARY | 2025-02-10 14:06 | XMS_ITS | Encounter Summary ---
Author Organization [facility] Address [address] [place] [address] Care Team Providers Care Medical Device Engineer Name Role Phone Thaddeus Alfredo MD Primary Care Provider Consuelo Love WHITTLING ROOM OPERATOR Unavailable Unavailable Akil Cox DO Unavailable [phone] Manisha Marc WHITTLING ROOM OPERATOR Unavailable [phone] Encounter Details Date Type Department Care Team (Late st Contact Info) Description 04/07/2023 Abstract [facility] [address] [place] [id number] Zane [place], DPM [address] [place] [address] Social History Tobacco Use Types Packs/Day Years [...] EDT Office Visit [facility] [address] [facility] [address] [address] [place] [address] Marko Oscar DO [address] [facility] [address] [place] [address] documented as of this encounter Visit Diagnoses Not on filedocumented in this encounter Care Teams Medical Device Engineer Relationship Specialty Start Date End Date Thaddeus Alfredo MD [address] [place] [address] PCP - General Family Medicine 04/24/23 11/09/24 Consuelo Love NP [address] [place] [address] Nurse Practitioner Neurology 11/10/24 Akil Cox DO [address] [place] [address] Referring Physician Neurology 11/10/24 Manisha Marc NP [address] [facility] [place] [address] Referring Physician Family Medicine 11/10/24 documented as of this encounter
--- OUTSIDE RECORDS SUMMARY | 2025-02-10 14:06 | XMS_ITS | Clinical Summary ---
Author Organization [employer] Address [id number] [address] [place] [address] Care Team Providers Care Purification Supervisor Name Role Phone Manisha Marc Primary [...] retrograde pyelogram. CT urogram cytology. [facility] bladder solution Hematuria, microscopic 06/03/2018 Overview [...] Medical Devices Not on file Insurance MEDICAID [facility] MEDICAID Care Teams Purification Supervisor Relationship Specialty Start Date End Date Manisha Marc APRN-NP [address] [place] [address] PCP - General Nurse Practitioner 04/14/24
--- OUTSIDE RECORDS SUMMARY | 2025-02-10 14:06 | XMS_ITS | Clinical Summary ---
Author Organization [facility] Address [address] [place] [address] Care Team Providers Care Lab Rep Name Role Phone Consuelo Love LOT WORKER Unavailable Unavailable Akil Cox DO Unavailable [phone] Manisha Marc LOT WORKER Unavailable [phone] Allergies Active Allergy Reactions Criticality Noted Date [...] cystoscopy. Potential retrograde pyelogram. CT urogram cytology. [facility] bladder solution ==== 06/03/2018 ==== several year history of recurrent urinary tract infections and heralded by urgency frequency dysuria. Sometimes some incontinence. No documented fevers. No gross hematuria. Persistent microscopic hematuria per primary care note. Plan: Evaluate lower urinary tract cystoscopy. Potential retrograde pyelogram. CT urogram cytology. [facility] bladder solution Encounters Date Type Department Care Team Description 01/06/2025 Abstract [facility] [address] [facility] [place] [address] CelestinaMarko gonzalezDO 11/30/2024 1:00 PM EDT Ancillary Procedure [facility] [address] [place] [address] PCOS (polycystic ovarian syndrome) 11/30/2024 Travel 11/23/2024 Telephone [facility] [address] [place] [address] Shilpa Snider MA 11/10/2024 9:00 AM EDT Office Visit [facility] [address] [address] Consuelo Love NP Cognitive dysfunction (Primary Dx); ALEXX (obstructive sleep apnea); Attention deficit hyperactivity disorder (ADHD), unspecified ADHD type ; Severe anxiety; Severe episode of recurrent major depressive disorder, without psychotic features (HCC); Bipolar affective disorder, remission status unspecified (HCC); Episodic migraine 11/10/2024 Bamboo flowsheet [place] [address] [address] Consuelo Love NP from Last 3 Months Family History Medical [...] EDT Office Visit [facility] [address] [facility] [place] [address] Marko Oscar, DO [address] [facility] [place] [address] Health Maintenance Due Date Last Done Comments Influenza Vaccine (Season Ended) 2025 Pap Smear 11/02/2026 11/03/2023, 10/16, 10/24/2021 Cervical Cancer Screening 10/29/2027 HPV/Cotest 10/29/2027 Procedures Procedure Name Priority Date/Time Associated Diagnosis Comments US PELVIC COMPLETE W/ TV Routine 11/30/2024 1:21 PM EDT PCOS (polycystic ovarian syndrome) PAP SMEAR Routine 11/03/2023 12:00 AM EDT [...] PHD at 01-Dec-2024 12:04:08 AM [facility] Procedure Note Jacqueline Yuen MD - [...] signed by JACQUELINE YUEN II, MD, PHD [id number] 12:04:08 AM [facility] us Marko Oscar DO IMG US PROCEDURES Final Result * Pap Smear (11/03/2023 12:00 AM EDT) Swab Cervical swab / Unknown us Celestina Nurse [facility] CYTOLOGY ORDERABLES Final Result EXTERNAL LAB from Last 3 Months or Most Recently Relevant to Health Maintenance Insurance [employer] MEDICAID Care Teams Lab Rep Relationship Specialty Start Date End Date Consuelo Love NP Nurse Practitioner Neurology 11/10/24 Akil Cox DO [address] [place] [address] Referring Physician Neurology 11/10/24 Manisha Marc NP [address] [facility] [address] Referring Physician Family Medicine 11/10/24
--- OUTSIDE RECORDS SUMMARY | 2025-02-10 14:06 | XMS_ITS | Encounter Summary ---
Author Organization [facility] Address [address] [facility] [place] [address] Care Team Providers Care Business Analytics Specialist Name Role Phone Juni, Thaddeus Brown MD Primary Care Provider [phone] Consuelo Love BREAD WRAPPER OPERATOR Unavailable Unavailable Akil Cox DO Unavailable [phone] Manisha Marc BREAD WRAPPER OPERATOR Unavailable [phone] Encounter Details Date Type Department Care Team (Late st Contact Info) Description 01/31/2023 Abstract [facility] [address] [place] [address] Marko Oscar DO [address] [place] [address] [address] [place], [place] [id number] Social History Tobacco Use Types Packs/Day Years [...] EDT Office Visit [facility] [address] [facility] [place] [address] Marko Oscar DO [address] [place] [address] [address] [place] [address] documented as of this encounter Visit Diagnoses Not on filedocumented in this encounter Care Teams Business Analytics Specialist Relationship Specialty Start Date End Date Thaddeus Alfredo MD [address] [place] [address] PCP - General Family Medicine 04/24/23 11/09/24 Consuelo Love NP [address] [place] [address] Nurse Practitioner Neurology 11/10/24 Akil Cox DO [address] [facility] [address] [place] [address] Referring Physician Neurology 11/10/24 Manisha Marc NP [address] [facility] [place] [place] [address] Referring Physician Family Medicine 11/10/24 documented as of this encounter
--- OUTSIDE RECORDS SUMMARY | 2025-02-10 14:06 | XMS_ITS | Encounter Summary ---
Author Organization [facility] Address [address] [facility] [place] [address] Care Team Providers Care Feeder Catcher Tobacco Name Role Phone Juni, Thaddeus Brown MD Primary Care Provider [phone] Consuelo Love HEAD OF BUSINESS DEVELOPMENT Unavailable Unavailable Akil Cox DO Unavailable [phone] Manisha Marc HEAD OF BUSINESS DEVELOPMENT Unavailable [phone] Encounter Details Date Type Department Care Team (Late st Contact Info) Description 02/13/2023 Abstract [facility] [address] [place] [address] Marko Oscar DO [address] [place] [address] [address] [place], [place] [id number] Social History Tobacco Use Types Packs/Day Years [...] EDT Office Visit [facility] [address] [facility] [place] [address] Marko Oscar DO [address] [place] [address] [place] [address] documented as of this encounter Visit Diagnoses Not on filedocumented in this encounter Care Teams Feeder Catcher Tobacco Relationship Specialty Start Date End Date Thaddeus Alfredo MD [address] [place] [address] PCP - General Family Medicine 04/24/23 11/09/24 Consuelo Love NP [address] [place] [address] Nurse Practitioner Neurology 11/10/24 Akil Cox DO [address] [facility] [address] [place] [address] Referring Physician Neurology 11/10/24 Manisha Marc NP [address] [facility] [place] [address] Referring Physician Family Medicine 11/10/24 documented as of this encounter
--- OUTSIDE RECORDS SUMMARY | 2025-02-10 14:06 | XMS_ITS | Encounter Summary ---
Author Organization [facility] Address [address] [place] [address] Care Team Providers Care Property Assessment Monitor Name Role Phone Juin, Thaddeus Brown MD Primary Care Provider [phone] Consuelo Love HEARING STENOGRAPHER Unavailable Unavailable Akil Cox DO Unavailable [phone] Manisha Marc HEARING STENOGRAPHER Unavailable [phone] Encounter Details Date Type Department Care Team (Late st Contact Info) Description 10/18/2024 Abstract [facility] [place] [address] [place] [address] Marko Oscar DO [address], [id number] Social History Tobacco Use Types Packs/Day Years [...] EDT Office Visit [facility] [address] [place] [address] Marko Oscar DO [address] [facility] [address] [place], [place] [id number] documented as of this encounter Visit Diagnoses Not on filedocumented in this encounter Care Teams Property Assessment Monitor Relationship Specialty Start Date End Date Thaddeus Alfredo MD [address] [place] [address] PCP - General Family Medicine 04/24/23 11/09/24 Consuelo Love NP [address] [place] [address] Nurse Practitioner Neurology 11/10/24 Akil Cox DO [address] [place] [address] Referring Physician Neurology 11/10/24 Manisha Marc NP [address] [facility] [address] Referring Physician Family Medicine 11/10/24 documented as of this encounter
--- OUTSIDE RECORDS SUMMARY | 2025-02-10 14:06 | XMS_ITS | Encounter Summary ---
Author Organization [facility] Address [address] [facility] [place] [address] Care Team Providers Care Director Of Volunteer Services Name Role Phone Juni, Thaddeus Brown MD Primary Care Provider [phone] Consuelo Love AIRCRAFT MAINTENANCE INSTRUCTOR Unavailable Unavailable Akil Cox DO Unavailable [phone] Manisha Marc AIRCRAFT MAINTENANCE INSTRUCTOR Unavailable [phone] Encounter Details Date Type Department Care Team (Late st Contact Info) Description 02/04/2023 Abstract [facility] [address] [place] [address] Marko Oscar DO [address] [place] [address] [address] [place], [place] [id number] Social History Tobacco Use Types Packs/Day Years [...] EDT Office Visit [facility] [address] [facility] [place] [address] Marko Oscar DO [address] [place] [address] [place] [address] documented as of this encounter Visit Diagnoses Not on filedocumented in this encounter Care Teams Director Of Volunteer Services Relationship Specialty Start Date End Date Thaddeus Alfredo MD [address] [place] [address] PCP - General Family Medicine 04/24/23 11/09/24 Consuelo Love NP [address] [place] [address] Nurse Practitioner Neurology 11/10/24 Akil Cox DO [address] [facility] [address] [place] [address] Referring Physician Neurology 11/10/24 Manisha Marc NP [address] [facility] [place] [address] Referring Physician Family Medicine 11/10/24 documented as of this encounter
--- OUTSIDE RECORDS SUMMARY | 2025-02-10 14:06 | XMS_ITS | Encounter Summary ---
Author Organization [facility] Address [address] [facility] [place] [address] Care Team Providers Care Tooth Inspector Name Role Phone LoveConsuelo burns LIQUOR BRIDGE OPERATOR Unavailable Unavailable Akil Cox DO Unavailable Manisha Marc LIQUOR BRIDGE OPERATOR Unavailable [phone] Encounter Details Date Type Department Care Team (Late st Contact Info) Description 01/06/2025 Abstract [facility] OB [address] [place] [address] Marko Oscar [facility] [address] [place], [place] [id number] Social History Tobacco Use Types Packs/Day Years [...] 11/09/2025 3:00 PM EDT Office Visit [facility] OB [address] [facility] [address] Marko Oscar DO [address] [facility] [place] [address] [place] [address] documented as of this encounter Visit Diagnoses Not on filedocumented in this encounter Care Teams Tooth Inspector Relationship Specialty Start Date End Date Consuelo Love NP Nurse Practitioner Neurology 11/10/24 Aikl Cox DO [address] [place], [place] [id number] Referring Physician Neurology 11/10/24 Manisha Marc NP [facility] [address] [place], [place] [id number] Referring Physician Family Medicine 11/10/24 documented as of this encounter
--- OUTSIDE RECORDS SUMMARY | 2025-02-10 14:06 | XMS_ITS | Encounter Summary ---
Author Organization [facility] Address [address] [place] [address] Care Team Providers Care Tank Truck Operator Name Role Phone Thaddeus Alfredo MD Primary Care Provider [phone] Consuelo Love RECRUITMENT INTERNSHIP Unavailable Unavailable Akil Cox DO Unavailable [phone] Manisha Marc RECRUITMENT INTERNSHIP Unavailable Encounter Details Date Type Department Care Team (Late st Contact Info) Description 03/11/2023 Abstract [facility] [address] [facility] [place] [address] Teri Love PA [address] [place], [place] [id number] Social History Tobacco Use Types Packs/Day Years [...] Office Visit [facility] OB [address] [place] [address] Marko Oscar DO [address] [facility] [place] [address] documented as of this encounter Visit Diagnoses Not on filedocumented in this encounter Care Teams Tank Truck Operator Relationship Specialty Start Date End Date Thaddeus Alfredo MD [address] [place] [address] PCP - General Family Medicine 04/24/23 11/09/24 Consuelo Love NP [address] [place] [address] Nurse Practitioner Neurology 11/10/24 Akil Cox DO [address] [place] [id number] Referring Physician Neurology 11/10/24 Manisha Marc NP [address] [facility] [address] Referring Physician Family Medicine 11/10/24 documented as of this encounter
--- OUTSIDE RECORDS SUMMARY | 2025-02-10 14:07 | XMS_ITS | Encounter Summary ---
Author Organization [facility] Address [address] [place] [address] Care Team Providers Care Art Appraiser Name Role Phone Thaddeus Alfredo MD Primary Care Provider [phone] Consuelo Love CLOTH PACKER Unavailable Unavailable Akil Cox DO Unavailable [phone] Manisha Marc CLOTH PACKER Unavailable [phone] Encounter Details Date Type Department Care Team (Late st Contact Info) Description 10/23/2023 Abstract [facility]IE P[facility] [address] [place] [address] Consuelo Love NP Social History Tobacco Use Types Packs/Day Years [...] Office Visit [facility] [address] [facility] [place] [address] Marko Oscar DO [address] [place] [address] documented as of this encounter Visit Diagnoses Not on filedocumented in this encounter Care Teams Art Appraiser Relationship Specialty Start Date End Date Thaddeus Alfredo MD [address] [place] [address] PCP - General Family Medicine 04/24/23 11/09/24 Consuelo Love NP [address] [place] [address] Nurse Practitioner Neurology 11/10/24 Akil Cox DO [address] [place] [address] Referring Physician Neurology 11/10/24 Manisha Marc NP [address] [facility] [place] [address] Referring Physician Family Medicine 11/10/24 documented as of this encounter
--- OUTSIDE RECORDS SUMMARY | 2025-02-10 14:07 | XMS_ITS | Encounter Summary ---
Author Organization [facility] Address [address] [place] [address] Care Team Providers Care Dental Equipment Technician Name Role Phone Juni, Thaddeus Brown MD Primary Care Provider [phone] Consuelo Love CAVALRY OFFICER Unavailable Unavailable Akil Cox DO Unavailable [phone] Manisha Marc CAVALRY OFFICER Unavailable Encounter Details Date Type Department Care Team (Late st Contact Info) Description 03/09/2024 Orders Only [facility] OB [address] [place] [address] Stella Marcos LPN 102 [facility] [address] [place] [id number] Social History Tobacco Use Types Packs/Day Years [...] BCP OB [address] [place] [address] Marko Oscar DO [address] [facility] [address] [place], [place] [id number] documented as of this encounter Procedures Procedure Name Priority Date/Time Associated Diagnosis Comments PAP SMEAR Routine 11/03/2023 12:00 AM EDT documented in this encounter Results * Pap Smear (11/03/2023 12:00 AM EDT) Swab Cervical swab / Unknown Celestina Nurse [facility] LAB CYTOLOGY ORDERABLES Final Result Performing Organization Address City/State/[facility] Co de Phone Number EXTERNAL LAB documented in this encounter Visit Diagnoses Not on filedocumented in this encounter Care Teams Dental Equipment Technician Relationship Specialty Start Date End Date Thaddeus Alfredo MD [address] [place] [address] PCP - General Family Medicine 04/24/23 11/09/24 Consuelo Love NP [address] [place] [address] Nurse Practitioner Neurology 11/10/24 Akil Cox DO [address] [place] [address] Referring Physician Neurology 11/10/24 Manisha Marc NP [address] [facility] [place] [address] Referring Physician Family Medicine 11/10/24 documented as of this encounter
--- OUTSIDE RECORDS SUMMARY | 2025-02-10 14:07 | XMS_ITS | Clinical Summary ---
Author Organization [facility] Address [address] [place] [address] Care Team Providers Care Licensed Home Inspector Name Role Phone Unavailable Primary Care Provider Unavailabl e Social History Tobacco Use Types Packs/Day Years Used Date Smoking Tobacco: Never Assessed Comments Unknown Sex and Gender Information Value Date Recorded Sex Assigned at Not on file Legal Sex Female 12:15 AM EDT Gender Identity Not on file Sexual Orientation Not on file Plan of Treatment Not on file
--- OUTSIDE RECORDS SUMMARY | 2025-02-10 14:07 | XMS_ITS | Encounter Summary ---
Author Organization [facility] Address [address] [place] [address] Care Team Providers Care District Plant Engineer Name Role Phone Thaddeus Alfredo MD Primary Care Provider [phone] Consuelo Love GRAILS WEB APPLICATION DEVELOPER Unavailable Unavailable Akil Cox DO Unavailable [phone] Chris Lopez GRAILS WEB APPLICATION DEVELOPER Unavailable [phone] Encounter Details Date Type Department Care Team (Late st Contact Info) Description 08/20/2023 Clinisync Result Encounter [facility] External Department Unsolicited Teri Love PA [address] [place] [address] Social History Tobacco Use Types Packs/Day Years [...] Visit [facility] OB [address] [place] [id number] Marko Oscar, DO [address] [facility] [place] [address] documented as of this encounter Procedures Procedure Name Priority Date/Time Associated Diagnosis Comments US BREAST RT COMPLETE 08/20/2023 1:41 PM EST documented in this encounter Results * US BREAST RT COMPLETE (08/20/2023 1:41 PM EST) Anatomical Region Laterality Modality Radiographic Miroslava ging 08/20/2023 1:41 PM EST Narrative 08/20/2023 1:42 PM EST The [address] [address] Ultrasound Report Signed Patient: DIMITRY PACK MR#: [id number] : 1990 Acct:[id number] Age/Sex: 32 / F ADM Date: 08/20/23 Loc: US Attending Dr: Teri Love Ordering Physician: Teri Love Date of Service: 08/20/23 Procedure(s): US breast RT complete Accession Number(s): [id number] cc: Teri Love; CHRIS LOPEZ Patient Name: DIMITRY PACK MR#: [id number] : 1990 Exam Date: 08/20/2023 Ordering Doctor: [...] Signed By: 08/20/23 1342 DD/ 1341 TD/TT: Rn Correctional: Procedure Note Radiology, Radiologist, - 08/21/[address] [address] Ultrasound Report Signed Patient: DIMITRY PACK KMR#: [id number] : 1990Acct:[id number] Age/Sex: 32 / FADM Date: 08/20/23 Loc: US Attending Dr: Teri Love Ordering Physician: Teri Love Date of Service: 08/20/23 Procedure(s): US breast RT complete Accession Number(s): [id number] cc: Teri Love; CHRIS LOPEZ Patient Name: DIMITRY PACK MR#: [id number] : 1990 Exam Date: 08/20/2023 Ordering Doctor: [...] Dictated By: Raul Chew M.D. Signed By:08/20/23 134 DD/ 134 TD/TT: Rn Correctional: us Teri LOVELL IMG XR PROCEDURES Final Result documented in this encounter Visit Diagnoses Not on filedocumented in this encounter Care Teams District Plant Engineer Relationship Specialty Start Date End Date Thaddeus Alfredo MD [address] [place] [address] PCP - General Family Medicine 9/7/23 3/25/25 Consuelo Love NP [address] [place] [address] Nurse Practitioner Neurology 11/10/24 Akil Cox DO [address] [address] Referring Physician Neurology 11/10/24 Chris Lopez NP [address] [facility] [place] [address] Referring Physician Family Medicine 11/10/24 documented as of this encounter
--- OUTSIDE RECORDS SUMMARY | 2025-02-10 14:07 | XMS_ITS | Referral Summary ---
Author Organization [facility] Address [address] [place] [address] Care Team Providers Care Tape Recorder Repairer Name Role Phone Unavailable Primary Care Provider [...]
--- NOTE | 2025-02-10 14:35 | PM.CN ---
Consult Note: HPI Data of Consult Patient: known to practice within the last 3 years Consult date: 02/10/25 Requesting Physician: Vera Blanco NP Primary Care Provider: CHRIS LOPEZ Consult Narrative Reason for consult: f/u Narrative: Ashly Mehta a pleasant 34 year old female presents for evaluation and management of low back pain. Patient has noticed this low back pain since a fall at work in 2018 where she injured her ankle and had to wear a boot, noticed the pain started after she stopped wearing the boot. Today rating pain 4/10 in low back and hips. Pain increased with pushing, pulling, standing, walking, activity, decreased with sleep sitting and lying down. Has tried chiropractor care without success. failed to benefit from tylenol, motrin, celebrex, meloxicam, gabapentin, flexeril and baclofen. pt failed to benefit from 6 weeks of PT for low back pain, cannot tolerate HEP. currently engaged in PT for cervical pain, recent cervical CT shows ddd and facet arthropathy. pt recently underwent lumbar MRI as noted below. recently underwent bilateral L4-5 TFESI with significant relief for 3 days per pt no ongoing relief. cc:: CC: Vera Blanco NP Review of Systems ROS Status of ROS 10 or more systems reviewed and unremarkable except as noted in history and below [facility] Medical History Herpes genitalia ?A60.00 - Herpesviral infection of urogenital system, unspecified (ICD-10) Back pain ?M54.9 - Dorsalgia, unspecified (ICD-10) Arthritis ?M19.90 - Unspecified osteoarthritis, unspecified site (ICD-10) Anemia ?D64.9 - Anemia, unspecified (ICD-10) Depression ?F32.A - Depression, unspecified (ICD-10) Anxiety ?F41.9 - Anxiety disorder, unspecified (ICD-10) COVID-19 ?U07.1 - COVID-19 (ICD-10) Asthma ?J45.909 - Unspecified asthma, uncomplicated (ICD-10) Seizures ?R56.9 - Unspecified convulsions (ICD-10) GERD (gastroesophageal reflux disease) ?K21.9 - Gastro-esophageal reflux disease without esophagitis (ICD-10) Sleep apnea ?G47.30 - Sleep apnea, unspecified (ICD-10) Palpitations ?R00.2 - Palpitations (ICD-10) Prediabetes ?R73.03 - Prediabetes (ICD-10) Hypertension ?I10 - Essential (primary) hypertension (ICD-10) PCOS (polycystic ovarian syndrome) ?E28.2 - Polycystic ovarian syndrome (ICD-10) Abnormal uterine bleeding (AUB) ?N93.9 - Abnormal uterine and vaginal bleeding, unspecified (ICD-10) Menorrhagia ?N92.0 - Excessive and frequent menstruation with regular cycle (ICD-10) Surgical History History of laparoscopy ?Z98.890 - Other specified postprocedural states (ICD-10) History of colposcopy ?Z98.890 - Other specified postprocedural states (ICD-10) History of wisdom tooth extraction ?K08.409 - Partial loss of teeth, unspecified cause, unspecified class (ICD-10) History of cholecystectomy ?Z90.49 - Acquired absence of other specified parts of digestive tract (ICD-10) Family History Other Family history of heart disease Family history of stroke Social History Within the past year, how often did you have a drink containing alcohol: monthly or less Smoking status: Never smoker 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 Highest level of school completed/degree received: Associate degree: occupational, technical, vocational program Little interest or pleasure in doing things: not at all Feeling down, depressed, or hopeless: not at all Meds Home Medications and Allergies Home Medications ?Medication ?Instructions ?Recorded ?Confirmed ?Type albuterol sulfate 90 mcg/actuation 2 inh inhalation Q6H PRN shortness 01/17/23 01/24/25 History aerosol inhaler (ProAir HFA) of breath or wheezing metformin 500 mg tablet 500 mg PO BID 01/17/23 01/24/25 History valacyclovir 1 gram tablet 1,000 mg PO BID 06/25/23 01/24/25 History lamotrigine 25 mg tablet (Lamictal) 25 mg PO Q12H 10/30/23 01/24/25 History duloxetine 60 mg capsule,delayed 120 mg PO .HS 04/14/24 01/24/25 History release lisinopril 10 mg tablet mg 04/14/24 History methenamine hippurate 1 gram tablet g 11/18/24 History multivitamin 1 tab PO DAILY 11/18/24 01/24/25 History pantoprazole 40 mg tablet,delayed mg PO 11/18/24 History release methocarbamol 500 mg tablet See Rx Instructions .Route 01/13/25 01/24/25 Rx .COMPLEX #120 tabs Allergies Allergy/AdvReac Type Severity Reaction Status Date / Time amoxicillin Allergy Rash Verified 01/24/25 10:11 cefaclor Allergy Rash Verified 01/24/25 10:11 erythromycin base Allergy Hives Verified 01/24/25 10:11 Exam Constitutional Documenting provider has reviewed patient's vital signs: yes Common normals: no apparent distress, oriented x3, healthy appearing, alert and well nourished General appearance: cooperative Nutritional appearance: obese HENMT Common normals: normocephalic, hearing grossly normal bilaterally and moist oral mucous membranes Head and scalp: normocephalic Eye Common normals: PERRL Pupil: PERRL Neck & C-Spine Common normals: full ROM General: normal visual inspection Cervical spine: cervical ROM normal and pain with cervical ROM Chest Common normals: inspection of chest normal Respiratory Common normals: normal respiratory effort, no retractions and no use of accessory muscles Back & Pelvis Lumbar spine/lower back: ROM limited and pain with ROM Sacroiliac joints: SI joint(s) abnormal Other: bilateral sij positive marissa(patricks), gaenslens, thigh thrust, compression test Extremity Common normals: normal to inspection and full ROM Other: tenderness over bilateral GTB Neuro Common normals: oriented x3 Sensorium/orientation: alert Motor exam: no movement abnormalities noted Psych Common normals: mental status grossly normal, thought process normal, cooperative, affect normal, speech normal and activity/motor behavior normal Speech: normal speech Thought process: normal thought process Results Additional Findings Additional findings: If on a controlled substance or opioids, I have checked an [place] report on this patient and there are no aberrancies noted in the prescribing history.??If on a controlled substance or opioid a drug screen was completed and reviewed within the last year, and if there has not been a drug screen completed we ordered one today to monitor higher risk, state monitored pain medication use. As part of providing excellent, safe, comprehensive care, the following was completed at our patient's visit: 1. A medication reconciliation and review to ensure accurate knowledge of current/active medications, including asking our patients to inform us about any [id number] medications or herbal remedies/nutritional supplements/alternative remedies. 2. A review to specifically ensure our patients have had annual screening for screening for depression, screening for tobacco use, and screening for unhealthy alcohol use. For concerning screenings had a discussion with the patient, provided patient education, and recommended follow-up with primary care provider when appropriate. If patient noted with a risk of falling, they received education on strength, gait, and balance training to prevent future risk of falling. Portions of this note may have been carried over from the previous visit and updated as appropriate. Please note this office utilizes paper charting in addition to the electronic medical record. A list of current medications, vitals, and PMH is available there as the clinical staff outside of myself do not have access to [email or web address] charting during the clinic day operations. As part of providing quality comprehensive care the current medications, vitals, and PMH were reviewed in the paper chart. Assessment and Plan Assessment and Plan (1) Lumbar stenosis with neurogenic claudication: (2) Sacroiliitis: Assessment and Plan: The patient has had over 3 months of moderate to severe low back pain with functional impairment and inadequate response to conservative care including NSAIDS (unless there are contraindication such as concurrent blood thinners), multiple oral or topical pain medications, and home exercise program/physical therapy.? Patient has completed >6 weeks of guided home exercise program and/or formal physical therapy program without relief of their symptoms.? The Oswestry Disability Index was completed, and the patient scored a 44%.? The patient noted the following:?? moderate to severe pain impacting ADLs, sitting, standing, walking, sleeping, social life, and travel? We discussed the risks and benefits of the procedure with the patient, and we are NOT planning on using sedation as outlined in the guidelines from Medicare unless there is a documented reason that sedation would be strongly recommended.?? The procedure will be completed with fluoroscopic guidance.? (3) Obesity: Assessment and Plan: pt reports she cannot exercise due to pain, would like to do aquatherapy but thats not an option with [facility] due to seizure hx. cannot afford [employer] membership. pt starting mediterranean diet (4) Lumbar spondylosis: (5) Degenerative disc disease, cervical: (6) Lumbar degenerative disc disease: (7) Lumbar radiculopathy: (8) Greater trochanteric bursitis: Qualifiers: Laterality: unspecified laterality Qualified Code(s): M70.60 - Trochanteric bursitis, unspecified hip (9) Myofascial pain syndrome: (10) Chronic neck pain: (11) Cervical spondylosis: Plan bilateral SIJ injection under fluoroscopy refer to NS for evaluation per pt request continue continue PT for chronic neck pain continue HEP as tolerated continue otc nsaids and tylenol PRN f/u 2 weeks after SIJ injections
== END 2025-02-10 14:01 | disposition home or self-care (01) ==
PROVIDERS: PCP Nurse Practitioner Family; Visit Provider Nurse Practitioner
DX: M48.062 Spinal stenosis, lumbar region with neurogenic claudication (principal); M46.1 Sacroiliitis, not elsewhere classified; E66.89 Other obesity not elsewhere classified; M47.816 Spondylosis without myelopathy or radiculopathy, lumbar region; M50.30 Other cervical disc degeneration, unspecified cervical region; M51.369 Other intervertebral disc degeneration, lumbar region without mention of lumbar back pain or lower extremity pain; M54.16 Radiculopathy, lumbar region; M70.60 Trochanteric bursitis, unspecified hip; M79.18 Myalgia, other site; M47.812 Spondylosis without myelopathy or radiculopathy, cervical region
CPT/HCPCS: G0463

== ENCOUNTER 2025-02-28 09:54 | Day surgery (SDC) | payer OTHER, SELFPAY ==
[2025-02-28 10:16] VITALS: BP 119/84; PULSE 90; TEMP 36.7; O2SAT 97
[2025-02-28 10:59] VITALS: BP 131/73; PULSE 80; O2SAT 96
[2025-02-28] MEDS: BUPIVACAINE HCL 0.25% PF 25 MG/10 ML VIAL 4 ML INJ (11:00)
[2025-02-28] MEDS: IOHEXOL 240 MG/ML - 10 ML VIAL INJ (11:00)
[2025-02-28] MEDS: METHYLPREDNISOLONE ACETATE 40 MG/ML VIAL 80 MG INJ (11:01)
[2025-02-28] MEDS: LIDOCAINE HCL 2% 400 MG/20 ML MDV INJ (11:01)
--- NOTE | 2025-02-28 11:01 | W.PM.PROCNOT ---
Date of procedure: 02/28/25 Pre-op diagnosis: Pain due to bilateral sacroiliitis Post-op diagnosis: same as pre-op Procedure: Procedure: Bilateral sacroiliac joint injection Medications: Bupivacaine 0.25% 4cc, depomedrol 40mg x2 After informed consent was obtained, the patient was brought to the medical procedure unit and placed in the prone position, when a timeout was completed verifying correct patient, procedure, site, positioning, implant, and/or special equipment.? The skin overlying the area was prepped and draped in standard sterile fashion using alcohol.? A 25-gauge needle was inserted towards the left sacroiliac joint under direct fluoroscopic imaging.? Needle tip was advanced until the joint was encountered.? We instilled a total of 2 mL of solution.? The same procedure was then completed on the right side.? Postoperatively needles were removed.? The patient tolerated the procedure well without complication.? The patient reported reduction in pain symptoms postoperatively. Anesthesia: Local Surgeon: Bud Combs Pathology: none sent Condition: stable Disposition: no change
[2025-02-28 11:02] VITALS: BP 152/81; PULSE 86; O2SAT 98
== END 2025-02-28 11:05 | disposition home or self-care (01) ==
LOC: SURGOUT 09:54
PROVIDERS: PCP Nurse Practitioner Family; Visit Provider Anesthesiology
DX: M46.1 Sacroiliitis, not elsewhere classified (principal); M53.3 Sacrococcygeal disorders, not elsewhere classified
CPT/HCPCS: 27096; J0665; J1010; Q9966

== ENCOUNTER 2025-03-17 10:11 | Outpatient (OUT) | payer OTHER, SELFPAY ==
--- OUTSIDE RECORDS SUMMARY | 2016-05-03 14:30 | XMS_ITS | Encounter Summary ---
Author Organization [facility] Address [address] [facility], [address] [place] [address] Care Team Providers Care Pathology Transcriptionist Name Role Phone Desi Rg APRN, CNP Primary Care Provide r Encounter Details Date Type Department Care Team (Late st Contact Info) Description 05/03/2016 2:30 PM EDT Hospital Encounter [facility] [address] [place] [address] Desi Rg APRN - CNP [address] [place] [address] Chris Williamson PTA Social History Tobacco Use Types Packs/Day Years Used Date Smoking Tobacco: Passive Smo ke Exposure - Never Smoker Smokeless Tobacco: Never Alcohol Use Standard Drinks/Week Comments Yes 0 (1 standard drink = 0.6 oz pur e alcohol) rare Comments Unknown Sex and Gender Information Value Date Recorded Sex Assigned at Not on file Legal Sex Female 9:39 PM EST Gender Identity Not on file Sexual Orientation Not on file documented as of this encounter Progress Notes * Chris Williamson - 05/03/2016 4:57 PM EDT [facility] Outpatient Physical Therapy Daily Note Patient: Ashly Mehta : 1990 Referring Practitioner: Referral Date : 04/26/16 Date: 05/03/2016 Referral Date : 04/26/16 Diagnosis: L ankle pain/sprain Treatment Diagnosis: Difficulty walking Onset Date: 04/17/16 PT Insurance Information: [facility] Total # of Visits Approved: 12 Per Physician Order Total # of Visits to Date: 2 No Show: 0 Canceled Appointment: 0 Pre-Treatment Pain: 4/10 Subjective: Pt reports ankle still hurts been trying to walk more on it Exercises/Modalities/Manual: See DocFlow Sheet Assessment Assessment: Pt required encouragement to perform exercises, c/o pain with [place] AROM and BAPS withmost intense pain located at lateral side L ankle Patient Education Patient Education: Educated pt on HEP for increased ROM and decreased pain Pt verbalized/demonstrated good understanding: [x] Yes [] No, pt required further clarification. Plan Plan: Continue with current plan Goals (Total # of Visits to Date: 2) Short Term Goals - Time Frame for Short term goals: 2 weeks Short term goal 1: Initiate HEP Short term goal 2: Decrease patient pain in L ankle to less than 6/10 with gait to improve ability to ambulate without bracing. Short term goal 3: Pt will demonstrate functional ROM without complaints of increased pain. Longterm Goals - Time Frame for half-way goals : 4 weeks half-way goal 1: Pt will be independent and compliant with her HEP half-way goal 2: Pt pain will be controlled and less than 2/10 in the L ankle to improve ability to ambulate with fluidity and efficiency. intermediate teacher goal 3: Pt strength of L ankle will allow at least 10 single leg heel raises to indicate improved propulsion for gait. half-way goal 4: Pt strength will be 5/5 and pt will demonstrate good stability for RTW. Post Treatment Pain: 4/10 Time In: 1432 Time Out: 1527 Timed Code Treatment Minutes: 40 Minutes Total Treatment Time: 55 Minutes Chris Ornelas License Number: MERCHANDISE PRESENTATION ASSOCIATE Date: 05/03/2016 Cosigned by Nely Tiwari PT at 05/06/2016 11:37 AM EDT documented in this encounter Plan of Treatment Not on file documented as of this encounter Visit Diagnoses Not on filedocumented in this encounter Care Teams Pathology Transcriptionist Relationship Specialty Start Date End Date Desi Rg APRN - PAINT GRINDER [facility] [place] [address] PCP - General 05/01/16 05/05/16 documented as of this encounter
--- OUTSIDE RECORDS SUMMARY | 2016-05-27 13:15 | XMS_ITS | Encounter Summary ---
Author Organization [facility] Address [address] [facility], [address] [place] [address] Care Team Providers Care Athletic Training Internship Name Role Phone House Sr., Thaddeus RAMOS Primary Care Provider + Encounter Details Date Type Department Care Team (Late st Contact Info) Description 05/27/2016 1:15 PM EDT Hospital Encounter [facility] [address] [place] [phone] Desi Rg, LAWN CARE SPECIALIST - CAMPUS POLICE OFFICER [address] [place] [address] Aaron Hanley Social History Tobacco Use Types Packs/Day Years [...] on file documented as of this encounter Discharge Summaries * Nely Tiwari, PT - 10/22/2016 11:53 AM EST [facility] Outpatient Physical Therapy Discharge Summary Patient: Ashly Mehta : 1990 Referring physician: Desi Rg NP Referring Practitioner: Desi Rg CNP Diagnosis: L ankle pain/sprain Date Treatment Initiated: 05/02/16 Date of Last Treatment: 05/27/16 PT Visit Information Onset Date: 04/17/16 PT Insurance Information: [facility] Total # of Visits Approved: 12 Total # of Visits to Date: 9 No Show: 1 Canceled Appointment: 1 Frequency/Duration Days: 3 times per week Weeks: 4 weeks Treatment Received [x]HP/CP [x]Electrical Stim [x]Therapeutic Exercise [x]Gait Training []Aquatics [x]Ultrasound [x]Patient Education/HEP [x]Manual Therapy []Traction []Neuro-tez []Soft Tissue Mobs []Home TENS []Iontophoresis []Orthotic casting/fitting []Dry Needling Assessment Assessment: Swelling is minimal, therex supine and closed chain exercise performed. Pt with 4/4+/5 DF strength and 4/5 EV strength. Goals Short term goals Time Frame for Short term goals: 2 weeks Short term goal 1: Initiate HEP -MET Short term goal 2: Decrease patient pain in L ankle to less than 6/10 with gait to improve ability to ambulate without bracing. Short term goal 3: Pt will demonstrate functional ROM without complaints of increased pain. -progressing [facility] goals Time Frame for [facility] goals : 4 weeks [facility] goal 1: Pt will be independent and compliant with her HEP [facility] goal 2: Pt pain will be controlled and less than 2/10 in the L ankle to improve ability to ambulate with fluidity and efficiency. [facility] goal 3: Pt strength of L ankle will allow at least 10 single leg heel raises to indicate improved propulsion for gait. [facility] goal 4: Pt strength will be 5/5 and pt will demonstrate good stability for RTW. Reason for Discharge [] Goals Achieved [] Poor Follow Through/Attendance [] Optimal Function Achieved [x] Patient Discharged Self [] Hospitalization [] Physician discharge Thank you for this referral Nely Tiwari, PT, DPT Date: 10/22/2016 documented in this encounter Progress Notes * Aaron Hanley - 05/27/2016 2:32 PM EDT [facility] Outpatient Physical Therapy Daily Note Patient: Ashly Mehta : 1990 Referring Practitioner: Desi Rg CNP Referral Date : 04/26/16 Date: 05/27/2016 Referring Practitioner: Desi Rg CNP Referral Date : 04/26/16 Diagnosis: L ankle pain/sprain Treatment Diagnosis: Difficulty walking Onset Date: 04/17/16 PT Insurance Information: [facility] Total # of Visits Approved: 12 Per Physician Order Total # of Visits to Date: 9 No Show: 1 Canceled Appointment: 1 Pre-Treatment Pain: 7/10 Subjective: Complains of snaping in ankle . States she has not been wearing the boot like she should Exercises/Modalities/Manual: See DocFlow Sheet Assessment Assessment: Swelling is minimal, therex supine and closed chain exercise performed. Pt with 4/4+/5 DF strength and 4?5 EV strength. Patient EducationPatient Education: Stress brace use Pt verbalized/demonstrated good understanding: [x] Yes [] No, pt required further clarification. Plan Plan: Continue with current plan Goals (Total # of Visits to Date: 9) Short Term Goals - Time Frame for Short term goals: 2 weeks Short term goal 1: Initiate HEP -MET Short term goal 2: Decrease patient pain in L ankle to less than 6/10 with gait to improve ability to ambulate without bracing. Short term goal 3: Pt will demonstrate functional ROM without complaints of increased pain. -progressing On Air Personality Goals - Time Frame for local intermodal truck driver goals : 4 weeks local intermodal truck driver goal 1: Pt will be independent and compliant with her HEP [facility] goal 2: Pt pain will be controlled and less than 2/10 in the L ankle to improve ability to ambulate with fluidity and efficiency. local intermodal truck driver goal 3: Pt strength of L ankle will allow at least 10 single leg heel raises to indicate improved propulsion for gait. [facility] goal 4: Pt strength will be 5/5 and pt will demonstrate good stability for RTW. Post Treatment Pain: 02/24 Time In: 1330 (Pt was late ) Time Out: 1430 Timed Code Treatment Minutes: 30 Minutes Total Treatment Time: 45 Minutes Aaron Hanley Therapy License Number: WOOD MACHINIST Date: 05/27/2016 Cosigned by Ewa Tiwari PT at 06/18/2016 2:07 PM EDT documented in this encounter Plan of Treatment Not on file documented as of this encounter Visit Diagnoses Not on filedocumented in this encounter Care Teams Athletic Training Internship Relationship Specialty Start Date End Date Thaddeus Alfredo Sr., DO [address] [place] [address] PCP - General 05/06/16 documented as of this encounter
--- OUTSIDE RECORDS SUMMARY | 2024-12-08 10:11 | XMS_ITS | Continuity of Care Document ---
Author Organization [facility] Address [address] [place] [address] Phone Care Team Providers Care Air Quality Engineer Name Role Phone Serjio DIAZS, Fermin Unavailable [...] Active carbamazepine ER 100 mg capsule,extended release [id number] - Active naproxen sodium 550 mg tablet [...] by oral route 2 times every day - Active Multi Vitamin 9 mg iron/15 [...] Prophylaxis Adult Nutrit Couns For Control Of [place] Dis Nov Oral Hygiene Instruction Resin Composite 2s; Posterior Oral Hygiene Instruction Extract; Erupted Th/exposted Rt 025 Oral Hygiene Instruction Intraoral-complete Series (bw) 25 Oral Hygiene Instruction Comp Oral Eval New/estab Patient 2024 Extract; Erupted Th/exposted Rt 025 Oral Hygiene Instruction Intraoral-periapical 1st Film Bitewig-single Film Limited Oral Eval Nutrit Couns For Control Of [place] Dis Sep Extract; Erupted Th/exposted Rt 024 Nutrit Couns For Control Of [place] Dis Jun Kzwpzucba-hmyhprbahp-cwtn Additional Jun Bitewig-single Film Oral Hygiene Instruction Limited Oral Eval Peedvyjpa-exhxhncckc-cgnm Additional Feb Bitewig-single Film Oral Hygiene Instruction Limited Oral Eval Advance Directives Directive Yes / No Effective Date File Name No Information Encounters Encounter Description Practice Location Reason(s) For Visit Diagnoses Date Provider Providers Copied on Encounter [facility], [address] [place] [address], [id number], tel:[phone] Dental Clinic fill (chief complaint) No Information Serjio SENIOR Fermin. [address] [place] [address], [id number] , . tel:[phone] [facility], [address] [place] [address], [id number], tel:[phone] Dental Clinic Encounter for screening for dental disorders Serjio SENIOR Fermin. [address] [place] [address], [id number] , . [phone] [facility], [address] [place] [address], [id number], tel:[phone] Dental Clinic pa (chief complaint) Body mass index [BMI] 50.0-59.9, adultEncounter for screening for dental disorders [facility] Fermin. [address] [place], [place], [id number] , [place]. tel:[phone] [facility], [address] [place], [place], [id number], [place] tel:[phone] Dental Clinic Encounter for screening for dental disorders [facility] Fermin. [address] [place], [place], [id number] , [place]. tel:[phone] [facility], [address] [place] [address], [id number], [place] tel:[phone] Dental Clinic ext (chief complaint) Encounter for screening for dental disorders [facility] Fermin. [address] [place], [place], [id number] , [place]. tel:[phone] [facility], [address] [place] [address], [id number], [place] tel:[phone] Dental Clinic dn (chief complaint) Encounter for screening for dental disorders [facility] Fermin. [address] [place] [address], [id number] , [place]. tel:[phone] [facility], [address] [place] [address], [id number], [place] tel:[phone] Dental Clinic ext (chief complaint) Encounter for screening for dental disorders [facility] Fermin. [address] [place] [address], [id number] , [place]. tel: [phone] [facility], [address] [place] [address], [id number], [place] tel:[phone] Dental Clinic DN (chief complaint) Body mass index [BMI] 50.0-59.9, adultEncounter for screening for dental disorders Jason Cuellar. [address] [place], [place], [id number] , [place]. tel:[phone] [facility], [address] [place] [address], [id number], [place] tel:[phone] Dental Clinic ext (chief complaint) Encounter for screening for dental disorders Jason Cuellar. [address] [place], [place], [id number] , [place]. tel:[phone] [facility], [address] [place] [address], [id number], [place] tel:[phone] Dental Clinic dl (chief complaint) Encounter for screening for dental disorders Jason Cuellar. [address] [place], [place], [id number] , [place]. tel:[phone] [facility], [address] [place] [address], [id number], [place] tel:[phone] Dental Clinic de (chief complaint) Encounter for screening for dental disorders Jason Cuellar. [address] [place], [place], [id number] , [place]. tel:[phone] Family History Family Member Type Diagnosis Age At Onset No Information Payers Payer name Insurance type Covered green party ID Payton florentino(joni) Carl [facility] Medicaid [facility] [id number] D Medicaid [facility] [id number] Social History Type Description Quantity Date Captured [...] Of Treatment Date Type Action Status Goal Depression scree laith. Due on due [...] Tdap Vaccine. Due on 2024 due Goal Influenza vaccine. Due on Pr due Goal PRAPARE ASSESSMENT. Due on due [...] C scre ening. Due on due Goal Hepatitis C scre [...] due Goal HPV. Due on due Goal Tdap Vaccine. Due on 2023 due Goal PRAPARE ASSESSMENT. Due on N due Goal RLP. Due on due Goal Unhealthy drug u se screening. Due on due Goal HPV. Due on due Goal Tdap. Due on due Goal Depression scree laith. Due on due Goal Hepatitis C scre ening. Due on due Goal Influenza vaccine. Due on No due Goal Hep A. Due on du e Goal Hep A. Due on du e Goal PRAPARE ASSESSMENT. Due on N due Goal Tdap Vaccine. Due on 2023 due Goal HPV. Due on due Goal Influenza vaccine. Due on No due Goal Depression scree laith. Due on [...]
--- OUTSIDE RECORDS SUMMARY | 2025-03-17 10:13 | XMS_ITS | Encounter Summary ---
Author Organization [facility] Address [address] [place] [address] Care Team Providers Care Do All Operator Name Role Phone Thaddeus Alfredo MD Primary Care Provider [phone] Consuelo Love DINING ROOM HOST/HOSTESS Unavailable Unavailable Akil Cox DO Unavailable [phone] Chris Lopez DINING ROOM HOST/HOSTESS Unavailable [phone] Encounter Details Date Type Department Care Team (Late st Contact Info) Description 08/20/2023 Clinisync Result Encounter [facility] External Department Unsolicited Teri Love PA [address] [place], [place] [id number] Social History Tobacco Use Types Packs/Day Years [...] 11/09/2025 3:00 PM EDT Office Visit [facility] Pepper OBGYJosé Miguel [address] [address] Marko Oscar, DO [address] [facility] [place] [address] documented as of this encounter Procedures Procedure Name Priority Date/Time Associated Diagnosis Comments US BREAST RT COMPLETE 08/20/2023 1:41 PM EST documented in this encounter Results * US BREAST RT COMPLETE (08/20/2023 1:41 PM EST) Anatomical Region Laterality Modality Radiographic Miroslava ging 08/20/2023 1:41 PM EST Narrative 08/20/2023 1:42 PM EST [address] [address] Ultrasound Report Signed Patient: DIMITRY PACK MR#: [id number] : 1990 Acct:[id number] Age/Sex: 32 / F ADM Date: 08/20/23 Loc: US Attending Dr: Teri Love Ordering Physician: Teri Love Date of Service: 08/20/23 Procedure(s): US breast RT complete Accession Number(s): [id number] cc: Teri Love; CHRIS LOPEZ Patient Name: DIMITRY PACK MR#: [id number] : 1990 Exam Date: 08/20/2023 Ordering Doctor: [...] By: Raul Chew M.D. Signed By: 08/20/23 134 DD/ 134 TD/TT: Party Plan Salesperson: Procedure Note Radiology, Radiologist, - 08/21/2023 [facility] [place] [id number] Ultrasound Report Signed Patient: DIMITRY PACK KMR#: [id number] : 1990Acct:[id number] Age/Sex: 32 FADM Date: 08/20/23 Loc: US Attending Dr: Teri Love Ordering Physician: Teri Love Date of Service: 08/20/23 Procedure(s): US breast RT complete Accession Number(s): [id number] cc: Teri Love; CHRIS LOPEZ Patient Name: DIMITRY PACK MR#: [id number] : 1990 Exam Date: 08/20/2023 Ordering Doctor: [...] M.D. Signed By:08/20/23 134 DD/ 134 TD/TT: Party Plan Salesperson: us Teri LOVELL IMG XR PROCEDURES Final Result documented in this encounter Visit Diagnoses Not on filedocumented in this encounter Care Teams Do All Operator Relationship Specialty Start Date End Date Thaddeus Alfredo MD PCP - General Family Medicine 04/24/23 11/09/24 Consuelo Love NP Nurse Practitioner Neurology 11/10/24 Akil Cox DO [address] [id number] Referring Physician Neurology 11/10/24 Chris Lopez NP [facility]5 [facility] [place] [address] Referring Physician Family Medicine 11/10/24 documented as of this encounter
--- OUTSIDE RECORDS SUMMARY | 2025-03-17 10:13 | XMS_ITS | Encounter Summary ---
Author Organization [facility] Address [address] [place] [address] Care Team Providers Care Oil Lease Broker Name Role Phone Thaddeus Alfredo MD Primary Care Provider Consuelo Love CONVERTER OPERATOR Unavailable Unavailable Akil Cox DO Unavailable [phone] Manisha Marc CONVERTER OPERATOR Unavailable Encounter Details Date Type Department Care Team (Late st Contact Info) Description 03/11/2023 Abstract NOMEvelin NEVAREZ [address] [place] [address] Teri Love PA [address] [facility] [address] [place], [facility]11 Social History Tobacco Use Types Packs/Day Years [...] Description 11/09/2025 3:00 PM EDT Office Visit KIRIT NEVAREZ [address] [facility] [place] [address] Marko Oscar DO [address] [facility] [place] [address] documented as of this encounter Visit Diagnoses Not on filedocumented in this encounter Care Teams Oil Lease Broker Relationship Specialty Start Date End Date Thaddeus Alfredo MD PCP - General Family Medicine 04/24/23 11/09/24 Consuelo Love NP Nurse Practitioner Neurology 11/10/24 Akil Cox DO [address] [place] [address] Referring Physician Neurology 11/10/24 Manisha Marc NP [address] [place] [address] [place] [address] Referring Physician Family Medicine 11/10/24 documented as of this encounter
--- OUTSIDE RECORDS SUMMARY | 2025-03-17 10:13 | XMS_ITS | Encounter Summary ---
Author Organization [facility] Address [address] [facility] [place] [address] Care Team Providers Care Copping Machine Operator Name Role Phone IvanConsuelo FIELD SALES CONSULTANT Unavailable Unavailable Akil Cox DO Unavailable [phone] Manisha Marc FIELD SALES CONSULTANT Unavailable [phone] Encounter Details Date Type Department Care Team (Late st Contact Info) Description 01/06/2025 Abstract NOMEvelin NEVAREZ [address] [place] [address] Marko Oscar DO [address] [facility] [address] [place], [place] [address] Social History Tobacco Use Types Packs/Day Years [...] Encounters Date Type Department Care Team (Late Contact Info) Description 11/09/2025 3:00 PM EDT Office Visit KIRIT NEVAREZ [address] [facility] [address] Marko Oscar DO [address] [place] [address] [address] [place] [address] documented as of this encounter Visit Diagnoses Not on filedocumented in this encounter Care Teams Copping Machine Operator Relationship Specialty Start Date End Date Consuelo Love NP Nurse Practitioner Neurology 11/10/24 Akil Cox DO [address] [place], [place] [address], [place] [address] Referring Physician Neurology 11/10/24 Manisha Marc NP [facility] Mariola [place], [place] [address] Referring Physician Family Medicine 11/10/24 documented as of this encounter
--- OUTSIDE RECORDS SUMMARY | 2025-03-17 10:13 | XMS_ITS | Encounter Summary ---
Author Organization [facility] Address [address] [place] [address] Care Team Providers Care Horse Doctor Name Role Phone Thaddeus Alfredo MD Primary Care Provider Consuelo Love POOL NURSE Unavailable Unavailable Akil Cox DO Unavailable [phone] Manisha Marc POOL NURSE Unavailable [phone] Encounter Details Date Type Department Care Team (Late st Contact Info) Description 02/04/2023 Abstract NOMEvelin NEVAREZ [address] [facility] [facility] [address] Marko Oscar DO [address] [facility] [address] [place], [facility]11 Social History Tobacco Use Types [...] 11/09/2025 3:00 PM EDT Office Visit [facility] [place] NEVAREZ [address] [facility] [place] [address] Marko Oscar DO [address] [facility] [place] [address] documented as of this encounter Visit Diagnoses Not on filedocumented in this encounter Care Teams Horse Doctor Relationship Specialty Start Date End Date Thaddeus Alfredo MD PCP - General Family Medicine 04/24/23 11/09/24 Consuelo Love NP Nurse Practitioner Neurology 11/10/24 Akil Cox DO [address] [place] [address] Referring Physician Neurology 11/10/24 Manisha Marc NP [facility]5 [facility] [place] [address] Referring Physician Family Medicine 11/10/24 documented as of this encounter
--- OUTSIDE RECORDS SUMMARY | 2025-03-17 10:13 | XMS_ITS | Clinical Summary ---
Author Organization [email or web address] Address [id number] [address] [place] [address] Care Team Providers Care Hotel Houseman Name Role Phone Manisha Marc Primary Care [...] cystoscopy. Potential retrograde pyelogram. CT urogram cytology. [facility] bladder solution Hematuria, microscopic 06/03/2018 Overview (06/03/2018): [...] Medical Devices Not on file Insurance MEDICAID [facility] MEDICAID Care Teams Hotel Houseman Relationship Specialty Start Date End Date Manisha Marc APRN-NP [address] [place] [address] PCP - General Nurse Practitioner 04/14/24
--- OUTSIDE RECORDS SUMMARY | 2025-03-17 10:13 | XMS_ITS | Encounter Summary ---
Author Organization [facility] Address [address] [place] [address] Care Team Providers Care Adzing And Boring Machine Helper Name Role Phone Juni, Thaddeus Brown MD Primary Care Provider Consuelo Love SIGN POSTER Unavailable Unavailable Akil Cox DO Unavailable [phone] Manisha Marc SIGN POSTER Unavailable [phone] Encounter Details Date Type Department Care Team (Late st Contact Info) Description 10/18/2024 Abstract NOMEvelin NEVAREZ [address] [facility] [place] [address] Marko Oscar DO [address] [facility] [address] [place], [place] [address] Social History Tobacco Use Types Packs/Day Years [...] 11/09/2025 3:00 PM EDT Office Visit KIRIT Pé[place] OBGYJosé Miguel [address] [facility] [place] [address] Marko Oscar DO [address] [facility] [place] [address] documented as of this encounter Visit Diagnoses Not on filedocumented in this encounter Care Teams Adzing And Boring Machine Helper Relationship Specialty Start Date End Date Thaddeus Alfredo MD PCP - General Family Medicine 04/24/23 11/09/24 Consuelo Love NP Nurse Practitioner Neurology 11/10/24 Akil Cox DO [address] [place] [address] Referring Physician Neurology 11/10/24 Manisha Marc NP [address] [place] [address] [address] [place] [address] Referring Physician Family Medicine 11/10/24 documented as of this encounter
--- OUTSIDE RECORDS SUMMARY | 2025-03-17 10:13 | XMS_ITS | Clinical Summary ---
Author Organization [facility] Address [address] [place] [address] Care Team Providers Care Clerk Of Superior Court Name Role Phone Consuelo Love LAST MODEL DEPARTMENT SUPERVISOR Unavailable Unavailable Akil Cox DO Unavailable [phone] Manisha Marc LAST MODEL DEPARTMENT SUPERVISOR Unavailable [phone] Allergies Active Allergy Reactions Criticality Noted Date [...] cystoscopy. Potential retrograde pyelogram. CT urogram cytology. [facility] bladder solution ==== 06/03/2018 ==== several year history of recurrent urinary tract infections and heralded by urgency frequency dysuria. Sometimes some incontinence. No documented fevers. No gross hematuria. Persistent microscopic hematuria per primary care note. Plan: Evaluate lower urinary tract cystoscopy. Potential retrograde pyelogram. CT urogram cytology. [facility] bladder solution Encounters Date Type Department Care Team Description 01/06/2025 Abstract NOMEvelin NEVAREZ [address] [place] [address] [place] [id number] Marko Oscar DO from Last 3 Months [...] 3:00 PM EDT Office Visit KIRIT NEVAREZ [facility] [place] [address] Marko Oscar DO [address] [place] [address] Health Maintenance Due Date Last Done Comments Influenza Vaccine (#1) 2025 Pap Smear 11/02/2026 11/03/2023, 10/28/2022, 03/0 04/2022 Cervical Cancer Screening 10/29/2027 HPV/Cotest 10/29/2027 Procedures Procedure Name Priority Date/Time Associated Diagnosis Comments PAP SMEAR Routine 11/03/2023 12:00 AM EDT from Last 3 Months or Most Recently Relevant to Health Maintenance Results * Pap Smear (11/03/2023 12:00 AM EDT) Swab Cervical swab / Unknown us Celestina Nurse [facility] LAB CYTOLOGY ORDERABLES Final Result EXTERNAL LAB from Last 3 Months or Most Recently Relevant to Health Maintenance Insurance MEDICAID Care Teams Clerk Of Superior Court Relationship Specialty Start Date End Date Consuelo Love NP Nurse Practitioner Neurology 11/10/24 Akil oCx DO [address] [place] [address] Referring Physician Neurology 11/10/24 Manisha Marc NP [address] [facility] [place] [address] Referring Physician Family Medicine 11/10/24
--- OUTSIDE RECORDS SUMMARY | 2025-03-17 10:13 | XMS_ITS | Encounter Summary ---
Author Organization [facility] Address [address] [place] [address] Care Team Providers Care Food Service Attendant Name Role Phone Thaddeus Alfredo MD Primary Care Provider [phone] Consuelo Love GRAIN AND YEAST PLANTS SUPERVISOR Unavailable Unavailable Akil Cox DO Unavailable [phone] Manisha Marc GRAIN AND YEAST PLANTS SUPERVISOR Unavailable [phone] Encounter Details Date Type Department Care Team (Late st Contact Info) Description 04/07/2023 Abstract [facility] [address] [place] [address] Zane Wright DPVeronica [address] [place] [address] Social History Tobacco Use Types Packs/Day Years [...] 3:00 PM EDT Office Visit [facility] [place] DILLGYN [address] [facility] [place] [place] [address] Marko Oscar DO [address] [facility] [address] [place], [place] [address] documented as of this encounter Visit Diagnoses Not on filedocumented in this encounter Care Teams Food Service Attendant Relationship Specialty Start Date End Date Thaddeus Alfredo MD PCP - General Family Medicine 04/24/23 11/09/24 Consuelo Love NP Nurse Practitioner Neurology 11/10/24 Akil Cox DO [address] [place] [address] Referring Physician Neurology 11/10/24 Manisha Marc NP [facility]5 [facility] [place] [address] Referring Physician Family Medicine 11/10/24 documented as of this encounter
--- OUTSIDE RECORDS SUMMARY | 2025-03-17 10:13 | XMS_ITS | Encounter Summary ---
Author Organization [facility] Address [address] [place] [address] Care Team Providers Care Environmental Studies Program Director Name Role Phone Juni, Thaddeus Brown MD Primary Care Provider [phone] Consuelo Love PEOPLESOFT HCM CONSULTANT Unavailable Unavailable Akil Cox DO Unavailable [phone] Manisha Marc PEOPLESOFT HCM CONSULTANT Unavailable [phone] Encounter Details Date Type Department Care Team (Late st Contact Info) Description 03/09/2024 Orders Only KIRIT NEVAREZ [address] [facility] [place] [address] Stella Marcos LPN [address] [facility] [address] [place], [place] [address] Social History Tobacco Use Types Packs/Day Years [...] 11/09/2025 3:00 PM EDT Office Visit KIRIT [place] OBGYN [address] [facility] [place] [address] Marko Oscar DO [address] [facility] [place] [address] documented as of this encounter Procedures [...] on filedocumented in this encounter Care Teams Environmental Studies Program Director Relationship Specialty Start Date End Date Thaddeus Alfredo MD PCP - General Family Medicine 04/24/23 11/09/24 Consuelo Love NP Nurse Practitioner Neurology 11/10/24 Akil Cox DO [address] [place] [address] Referring Physician Neurology 11/10/24 Manisha Marc NP [address] [place] [address] [place] [address] Referring Physician Family Medicine 11/10/24 documented as of this encounter
--- OUTSIDE RECORDS SUMMARY | 2025-03-17 10:13 | XMS_ITS | Encounter Summary ---
Author Organization [facility] Address [address] [place] [address] Care Team Providers Care Collision Technician Name Role Phone Thaddeus Alfredo MD Primary Care Provider Consuelo Love SEATER ASSEMBLER Unavailable Unavailable Akil Cox DO Unavailable [phone] Manisha Marc SEATER ASSEMBLER Unavailable [phone] Encounter Details Date Type Department Care Team (Late st Contact Info) Description 10/23/2023 Abstract SUSIE PÉREZ [address] [place] [address] Consuelo Love NP Social History [...] 3:00 PM EDT Office Visit [facility] [place] OBGYN [address] [place] [address] Marko Oscar DO [address] [place] [address] documented as of this encounter Visit Diagnoses Not on filedocumented in this encounter Care Teams Collision Technician Relationship Specialty Start Date End Date Thaddeus Alfredo MD PCP - General Family Medicine 04/24/23 11/09/24 Consuelo Love NP Nurse Practitioner Neurology 11/10/24 Akil Cox DO [address] [place] [address] Referring Physician Neurology 11/10/24 Manisha Marc NP [facility]5 [facility] [place] [address] Referring Physician Family Medicine 11/10/24 documented as of this encounter
--- OUTSIDE RECORDS SUMMARY | 2025-03-17 10:13 | XMS_ITS | Encounter Summary ---
Author Organization [facility] Address [address] [place] [address] Care Team Providers Care Insurance Instructor Name Role Phone Thaddeus Alfredo MD Primary Care Provider Consuelo Love VICE PRESIDENT OF ADVERTISING Unavailable Unavailable Akil Cox DO Unavailable [phone] Manisha Marc VICE PRESIDENT OF ADVERTISING Unavailable Encounter Details Date Type Department Care Team (Late st Contact Info) Description 01/31/2023 Abstract NOMEvelin NEVAREZ [address] [facility] [place] [address] Marko Oscar DO [address] [facility] [address] [place], [facility]11 Social History Tobacco Use Types [...] EDT Office Visit [facility]S [place] NEVAREZ [address] [place] [address] Marko Oscar DO 102 [facility] [place] [address] documented as of this encounter Visit Diagnoses Not on filedocumented in this encounter Care Teams Insurance Instructor Relationship Specialty Start Date End Date Thaddeus Alfredo MD PCP - General Family Medicine 04/24/23 11/09/24 Consuelo Love NP Nurse Practitioner Neurology 11/10/24 Akil Cox DO [address] [place] [address] Referring Physician Neurology 11/10/24 Manisha Marc NP [facility]5 [facility] [place] [address] Referring Physician Family Medicine 11/10/24 documented as of this encounter
--- OUTSIDE RECORDS SUMMARY | 2025-03-17 10:13 | XMS_ITS | Encounter Summary ---
Author Organization [facility] Address [address] [place] [address] Care Team Providers Care Geophysical Computer Name Role Phone Thaddeus Alfredo MD Primary Care Provider Consuelo Love PICKER OPERATOR Unavailable Unavailable Akil Cox DO Unavailable [phone] Manisha Marc PICKER OPERATOR Unavailable [phone] Encounter Details Date Type Department Care Team (Late st Contact Info) Description 02/13/2023 Abstract NOMEvelin NEVAREZ [address] [facility] [place] [address] Marko Oscar DO [address] [place] [address], [facility]11 Social History Tobacco Use Types Packs/Day [...] EDT Office Visit [facility]S [place] NEVAREZ [address] [facility] [place] [address] Marko Oscar DO 102 [facility] [place] [address] [place] [address] documented as of this encounter Visit Diagnoses Not on filedocumented in this encounter Care Teams Geophysical Computer Relationship Specialty Start Date End Date Thaddeus Alfredo MD PCP - General Family Medicine 04/24/23 11/09/24 Consuelo Love NP Nurse Practitioner Neurology 11/10/24 Akil Cox DO [address] [place] [address] Referring Physician Neurology 11/10/24 Manisha Marc NP [facility]5 [facility] [place] [address] Referring Physician Family Medicine 11/10/24 documented as of this encounter
--- OUTSIDE RECORDS SUMMARY | 2025-03-17 10:13 | XMS_ITS | Clinical Summary ---
Author Organization [facility] Address [address] [place] [address], [address] [place] [address] Care Team Providers Care Workday Financials Consultant Name Role Phone House Sr., Thaddeus RAMOS [...] Plan of Treatment Not on file Insurance [facility] [place]ID [place] [facility] Care Teams Workday Financials Consultant Relationship Specialty Start Date End Date Thaddeus Alfredo Sr., [address] [place] [address] PCP - General 05/06/16
--- NOTE | 2025-03-17 10:38 | PM.CN ---
Consult Note: HPI Data of Consult Patient: known to practice within the last 3 years Consult date: 03/17/25 Requesting Physician: Vera Blanco NP Primary Care Provider: CHRIS LOPEZ Consult Narrative Reason for consult: f/u Narrative: Ashly Mehta a pleasant 34 year old female presents for evaluation and management of low back pain. Patient has noticed this low back pain since a fall at work in 2018 where she injured her ankle and had to wear a boot, noticed the pain started after she stopped wearing the boot. Today rating pain 4/10 in low back and hips. Pain increased with pushing, pulling, standing, walking, activity, decreased with sleep sitting and lying down. Has tried chiropractor care without success. failed to benefit from tylenol, motrin, celebrex, meloxicam, gabapentin, flexeril and baclofen. pt failed to benefit from 6 weeks of PT for low back pain, cannot tolerate HEP. currently engaged in PT for cervical pain, recent cervical CT shows ddd and facet arthropathy. pt recently underwent lumbar MRI as noted below. recently underwent bilateral L4-5 TFESI and bilateral SIJ injection with significant relief for 3 days per pt no ongoing relief. was evaluated by NS per pt request and deemed nonsurgical, weight loss was recommended. cc:: CC: Vera Blanco NP Review of Systems ROS Status of ROS 10 or more systems reviewed and unremarkable except as noted in history and below [facility] Medical History Herpes genitalia ?A60.00 - Herpesviral infection of urogenital system, unspecified (ICD-10) Back pain ?M54.9 - Dorsalgia, unspecified (ICD-10) Arthritis ?M19.90 - Unspecified osteoarthritis, unspecified site (ICD-10) Anemia ?D64.9 - Anemia, unspecified (ICD-10) Depression ?F32.A - Depression, unspecified (ICD-10) Anxiety ?F41.9 - Anxiety disorder, unspecified (ICD-10) COVID-19 ?U07.1 - COVID-19 (ICD-10) Asthma ?J45.909 - Unspecified asthma, uncomplicated (ICD-10) Seizures ?R56.9 - Unspecified convulsions (ICD-10) GERD (gastroesophageal reflux disease) ?K21.9 - Gastro-esophageal reflux disease without esophagitis (ICD-10) Sleep apnea ?G47.30 - Sleep apnea, unspecified (ICD-10) Palpitations ?R00.2 - Palpitations (ICD-10) Prediabetes ?R73.03 - Prediabetes (ICD-10) Hypertension ?I10 - Essential (primary) hypertension (ICD-10) PCOS (polycystic ovarian syndrome) ?E28.2 - Polycystic ovarian syndrome (ICD-10) Abnormal uterine bleeding (AUB) ?N93.9 - Abnormal uterine and vaginal bleeding, unspecified (ICD-10) Menorrhagia ?N92.0 - Excessive and frequent menstruation with regular cycle (ICD-10) Surgical History History of laparoscopy ?Z98.890 - Other specified postprocedural states (ICD-10) History of colposcopy ?Z98.890 - Other specified postprocedural states (ICD-10) History of wisdom tooth extraction ?K08.409 - Partial loss of teeth, unspecified cause, unspecified class (ICD-10) History of cholecystectomy ?Z90.49 - Acquired absence of other specified parts of digestive tract (ICD-10) Family History Other Family history of heart disease Family history of stroke Social History Within the past year, how often did you have a drink containing alcohol: monthly or less Smoking status: Never smoker 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 Highest level of school completed/degree received: Associate degree: occupational, technical, vocational program Little interest or pleasure in doing things: not at all Feeling down, depressed, or hopeless: not at all Meds Home Medications and Allergies Home Medications ?Medication ?Instructions ?Recorded ?Confirmed ?Type albuterol sulfate 90 mcg/actuation 2 inh inhalation Q6H PRN shortness 01/17/23 02/28/25 History aerosol inhaler (ProAir HFA) of breath or wheezing metformin 500 mg tablet 500 mg PO BID 01/17/23 02/28/25 History valacyclovir 1 gram tablet 1,000 mg PO BID 06/25/23 02/28/25 History lamotrigine 25 mg tablet (Lamictal) 25 mg PO Q12H 10/30/23 02/28/25 History duloxetine 60 mg capsule,delayed 120 mg PO .HS 04/14/24 02/28/25 History release lisinopril 10 mg tablet mg 04/14/24 History methenamine hippurate 1 gram tablet g 11/18/24 History multivitamin 1 tab PO DAILY 11/18/24 02/28/25 History pantoprazole 40 mg tablet,delayed mg PO 11/18/24 History release methocarbamol 500 mg tablet See Rx Instructions .Route 01/13/25 02/28/25 Rx .COMPLEX #120 tabs pregabalin 75 mg capsule (Lyrica) 75 mg PO BID #60 caps 02/10/25 02/28/25 Rx Allergies Allergy/AdvReac Type Severity Reaction Status Date / Time sulfamethoxazole (From Allergy Mild ulcer Verified 02/28/25 10:20 Bactrim) tongue trimethoprim (From Bactrim) Allergy Mild ulcer Verified 02/28/25 10:20 tongue amoxicillin Allergy Rash Verified 02/28/25 10:18 cefaclor Allergy Rash Verified 02/28/25 10:18 erythromycin base Allergy Hives Verified 02/28/25 10:18 Exam Constitutional Documenting provider has reviewed patient's vital signs: yes Common normals: no apparent distress, oriented x3, healthy appearing, alert and well nourished General appearance: cooperative Nutritional appearance: obese HENMT Common normals: normocephalic, hearing grossly normal bilaterally and moist oral mucous membranes Head and scalp: normocephalic Eye Common normals: PERRL Pupil: PERRL Neck & C-Spine Common normals: full ROM General: normal visual inspection Cervical spine: cervical ROM normal and pain with cervical ROM Chest Common normals: inspection of chest normal Respiratory Common normals: normal respiratory effort, no retractions and no use of accessory muscles Back & Pelvis Lumbar spine/lower back: ROM limited and pain with ROM Sacroiliac joints: SI joint(s) abnormal Other: bilateral sij positive marissa(patricks), gaenslens, thigh thrust, compression test Extremity Common normals: normal to inspection and full ROM Other: tenderness over bilateral GTB Neuro Common normals: oriented x3 Sensorium/orientation: alert Motor exam: no movement abnormalities noted Psych Common normals: mental status grossly normal, thought process normal, cooperative, affect normal, speech normal and activity/motor behavior normal Speech: normal speech Thought process: normal thought process Results Additional Findings Additional findings: If on a controlled substance or opioids, I have checked an [place]AR[place] report on this patient and there are no aberrancies noted in the prescribing history.??If on a controlled substance or opioid a drug screen was completed and reviewed within the last year, and if there has not been a drug screen completed we ordered one today to monitor higher risk, state monitored pain medication use. As part of providing excellent, safe, comprehensive care, the following was completed at our patient's visit: 1. A medication reconciliation and review to ensure accurate knowledge of current/active medications, including asking our patients to inform us about any sxix-wzx-gjyafhy medications or herbal remedies/nutritional supplements/alternative remedies. 2. A review to specifically ensure our patients have had annual screening for screening for depression, screening for tobacco use, and screening for unhealthy alcohol use. For concerning screenings had a discussion with the patient, provided patient education, and recommended follow-up with primary care provider when appropriate. If patient noted with a risk of falling, they received education on strength, gait, and balance training to prevent future risk of falling. Portions of this note may have been carried over from the previous visit and updated as appropriate. Please note this office utilizes paper charting in addition to the electronic medical record. A list of current medications, vitals, and PMH is available there as the clinical staff outside of myself do not have access to [employer] charting during the clinic day operations. As part of providing quality comprehensive care the current medications, vitals, and PMH were reviewed in the paper chart. Assessment and Plan Assessment and Plan (1) Lumbar stenosis with neurogenic claudication: (2) Sacroiliitis: Assessment and Plan: The patient has had over 3 months of moderate to severe low back pain with functional impairment and inadequate response to conservative care including NSAIDS (unless there are contraindication such as concurrent blood thinners), multiple oral or topical pain medications, and home exercise program/physical therapy.? Patient has completed >6 weeks of guided home exercise program and/or formal physical therapy program without relief of their symptoms.? The Oswestry Disability Index was completed, and the patient scored a 40%.? The patient noted the following:?? moderate to severe pain impacting ADLs, sitting, standing, walking, sleeping, social life, and travel? (3) Obesity: Assessment and Plan: upcoming consult with weight management (4) Lumbar spondylosis: (5) Degenerative disc disease, cervical: (6) Lumbar degenerative disc disease: (7) Lumbar radiculopathy: (8) Greater trochanteric bursitis: Qualifiers: Laterality: unspecified laterality Qualified Code(s): M70.60 - Trochanteric bursitis, unspecified hip (9) Myofascial pain syndrome: (10) Chronic neck pain: (11) Cervical spondylosis: Plan increase pregabalin 75mg TID, noting improvement with BID dosing without side effects pending consult with weight management clinic to discuss weight loss options continue tylenol and NSAIDs otc PRN continue HEP as tolerated f/u 6-8 weeks to evaluate medication changes
== END 2025-03-17 10:12 | disposition home or self-care (01) ==
LOC: PM 10:11
PROVIDERS: PCP Nurse Practitioner Family; Visit Provider Nurse Practitioner
DX: M48.062 Spinal stenosis, lumbar region with neurogenic claudication (principal); M46.1 Sacroiliitis, not elsewhere classified; E66.9 Obesity, unspecified; M47.816 Spondylosis without myelopathy or radiculopathy, lumbar region; M50.30 Other cervical disc degeneration, unspecified cervical region; M51.369 Other intervertebral disc degeneration, lumbar region without mention of lumbar back pain or lower extremity pain; M54.16 Radiculopathy, lumbar region; M70.60 Trochanteric bursitis, unspecified hip; M79.18 Myalgia, other site; M47.812 Spondylosis without myelopathy or radiculopathy, cervical region
CPT/HCPCS: G0463

== ENCOUNTER 2025-03-22 08:50 | Outpatient (OUT) | payer OTHER, SELFPAY ==
--- OUTSIDE RECORDS SUMMARY | 2016-05-03 14:30 | XMS_ITS | Encounter Summary ---
Author Organization [facility] Address [address] [facility], [address] [place] [address] Care Team Providers Care Machine Wood Sander Name Role Phone Desi Rg APRN, CNP Primary Care Provide r Encounter Details Date Type Department Care Team (Late st Contact Info) Description 05/03/2016 2:30 PM EDT Hospital Encounter [facility] [address] [place] [address] Desi Rg APRN - CNP [address] [place] [id number] Chris Williamson PTA Social History Tobacco Use [...] Chris Williamson - 05/03/2016 4:57 PM EDT [facility] Outpatient Physical Therapy Daily Note Patient: Ashly Mehta : 1990 Referring Practitioner: Referral Date : 04/26/16 Date: 05/03/2016 Referral Date : 04/26/16 Diagnosis: L ankle pain/sprain Treatment Diagnosis: Difficulty walking Onset Date: 04/17/16 PT Insurance Information: [facility] Total # of Visits Approved: 12 Per Physician Order Total # of Visits to Date: 2 No Show: 0 Canceled Appointment: 0 Pre-Treatment Pain: 4/10 Subjective: Pt reports ankle still hurts been trying to walk more on it Exercises/Modalities/Manual: See DocFlow Sheet Assessment Assessment: Pt required encouragement to perform exercises, c/o pain with [place] AROM and BAPS withmost intense pain located [...] functional ROM without complaints of increased pain. Drug Enforcement Agent Goals - Time Frame for long term care phlebotomist goals : 4 weeks FDC goal 1: Pt will be independent and compliant with her HEP long term care phlebotomist goal 2: Pt pain will be controlled and less than 2/10 in the L ankle to improve ability to ambulate with fluidity and efficiency. long term care phlebotomist goal 3: Pt strength of L ankle will allow at least 10 single leg heel raises to indicate improved propulsion for gait. FDC goal 4: Pt strength will be 5/5 and pt will demonstrate good stability for RTW. Post Treatment Pain: 4/10 Time In: 1432 Time Out: 1527 Timed Code Treatment Minutes: 40 Minutes Total Treatment Time: 55 Minutes Chris Ornelas License Number: SPRING WINDER Date: 05/03/2016 Cosigned by Nely Tiwari PT at 05/06/2016 11:37 AM EDT documented in this encounter Plan of Treatment Not on file documented as of this encounter Visit Diagnoses Not on filedocumented in this encounter Care Teams Machine Wood Sander Relationship Specialty Start Date End Date Desi Rg APRN - WEBSITE PROJECT MANAGER [facility] [place] [address] PCP - General 05/01/16 05/05/16 documented as of this encounter
--- OUTSIDE RECORDS SUMMARY | 2016-05-27 13:15 | XMS_ITS | Encounter Summary ---
Author Organization [facility] Address [address], [address] [place] [address] Care Team Providers Care Projection Printer Name Role Phone House Sr., Thaddeus RAMOS Primary Care Provider + Encounter Details Date Type Department Care Team (Late st Contact Info) Description 05/27/2016 1:15 PM EDT Hospital Encounter [facility] [address] [phone] Desi Rg, CRUTCHER HELPER - IN SERVICE COORDINATOR [address] [place] [address] Aaron Hanley Social History Tobacco Use Types [...] Tiwari, PT - 10/22/2016 11:53 AM EST [facility] Outpatient Physical Therapy Discharge Summary Patient: Ashly Mehta : 1990 Referring physician: Desi Rg NP Referring Practitioner: Desi Rg CNP Diagnosis: L ankle pain/sprain Date Treatment Initiated: 05/02/16 Date of Last Treatment: 05/27/16 PT Visit Information Onset Date: 04/17/16 PT Insurance Information: [facility] Total # of Visits Approved: 12 [...] ROM without complaints of increased pain. -progressing correction goals Time Frame for correction goals : 4 weeks correction goal 1: Pt will be independent and compliant with her HEP correction goal 2: Pt pain will be controlled and less than 2/10 in the L ankle to improve ability to ambulate with fluidity and efficiency. 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 Reason for Discharge [] Goals Achieved [] Poor Follow Through/Attendance [] Optimal Function Achieved [x] Patient Discharged Self [] Hospitalization [] Physician discharge Thank you for this referral Nely Tiwari, PT, DPT Date: 10/22/2016 documented in this encounter Progress Notes * Aaron Hanley - 05/27/2016 2:32 PM EDT [facility] Outpatient Physical Therapy Daily Note Patient: Ashly Mehta : 1990 Referring Practitioner: Desi Rg CNP Referral Date : 04/26/16 Date: 05/27/2016 Referring Practitioner: Desi Rg CNP Referral Date : 04/26/16 Diagnosis: L ankle pain/sprain Treatment Diagnosis: Difficulty walking Onset Date: 04/17/16 PT Insurance Information: [facility] Total # of Visits Approved: 12 [...] ROM without complaints of increased pain. -progressing Submersible Pilot Goals - Time Frame for watermelon harvesting supervisor goals : 4 weeks watermelon harvesting supervisor goal 1: Pt will be independent and compliant with her HEP correction goal 2: Pt pain will be controlled and less than 2/10 in the L ankle to improve ability to ambulate with fluidity and efficiency. correction goal 3: Pt strength of L ankle will allow at least 10 single leg heel raises to indicate improved propulsion for gait. correction goal 4: Pt strength will be 5/5 and pt will demonstrate good stability for RTW. Post Treatment Pain: 02/24 Time In: 1330 (Pt was late ) Time Out: 1430 Timed Code Treatment Minutes: 30 Minutes Total Treatment Time: 45 Minutes [facility] License Number: [id number] TENDER Date: 05/27/2016 Cosigned by Ewa Tiwari PT at 06/18/2016 2:07 PM EDT documented in this encounter Plan of Treatment Not on file documented as of this encounter Visit Diagnoses Not on filedocumented in this encounter Care Teams Projection Printer Relationship Specialty Start Date End Date Thaddeus Alfredo Sr., DO [address] [place] [address] PCP - General 05/06/16 documented as of this encounter
--- OUTSIDE RECORDS SUMMARY | 2024-12-08 10:11 | XMS_ITS | Continuity of Care Document ---
Author Organization [facility] Address [address] [place] [address] Phone Care Team Providers Care Sociology Teacher Name Role Phone Serjio DIAZS, Fermin Unavailable [...] Active carbamazepine ER 100 mg capsule,extended release [id number] - Active naproxen sodium 550 mg tablet [...] Prophylaxis Adult Nutrit Couns For Control Of [place] Dis Nov Oral Hygiene Instruction Resin Composite 2s; Posterior Oral Hygiene Instruction Extract; Erupted Th/exposted Rt 025 Oral Hygiene Instruction Intraoral-complete Series (bw) 25 Oral Hygiene Instruction Comp Oral Eval New/estab Patient 2024 Extract; Erupted Th/exposted Rt 025 Oral Hygiene Instruction Intraoral-periapical 1st Film Bitewig-single Film Limited Oral Eval Nutrit Couns For Control Of [place] Dis Sep Extract; Erupted Th/exposted Rt 024 Nutrit Couns For Control Of [place] Dis Jun Zvztxucvg-zaylfhkdem-niwy Additional Jun Bitewig-single Film Oral Hygiene Instruction Limited Oral Eval Mnwphaxfe-lmkmbaaqkp-uxqp Additional Feb Bitewig-single Film Oral Hygiene Instruction Limited Oral Eval Advance Directives Directive Yes / No Effective Date File Name No Information Encounters Encounter Description Practice Location Reason(s) For Visit Diagnoses Date Provider Providers Copied on Encounter [facility], [address] [place] [address], [id number], tel:[phone] Dental Clinic fill (chief complaint) No Information Serjio SENIOR Fermin. [address] [place] [address], [id number] , . tel:[phone] [facility], [address] [place] [address], [id number], tel:[phone] Dental Clinic Encounter for screening for dental disorders Serjio SENIOR Fermin. [address] [place] [address], [id number] , . [phone] [facility], [address] [place] [address], [id number], tel:[phone] Dental Clinic pa (chief complaint) Body mass index [BMI] 50.0-59.9, adultEncounter for screening for dental disorders [facility] Fermin. [address] [place], [place], [id number] , [place]. tel:[phone] [facility], [address] [place], [place], [id number], [place] tel:[phone] Dental Clinic Encounter for screening for dental disorders [facility] Efr[facility]. [address] [place], [place], [id number] , [place]. tel:[phone] [facility], [address] [place] [address], [id number], [place] tel:[phone] Dental Clinic ext (chief complaint) Encounter for screening for dental disorders [facility] Fermin. [address] [place], [place], [id number] , [place]. tel: [phone] [facility], [address] [place] [address], [id number], [place] tel:[phone] Dental Clinic dn (chief complaint) Encounter for screening for dental disorders [facility] Fermin. [address] [place] [address], [id number] , [place]. tel:[phone] [facility], [address] [place] [address], [id number], [place] tel:[phone] Dental Clinic ext (chief complaint) Encounter for screening for dental disorders [facility] Fermin. [address] [place] [address], [id number] , [place]. tel: [phone] [facility], [address] [place] [address], [id number], [place] tel:[phone] Dental Clinic DN (chief complaint) Body mass index [BMI] 50.0-59.9, adultEncounter for screening for dental disorders Jason Cuellar. [address] [place], [place], [id number] , [place]. tel:[phone] [facility], [address] [place] [address], [id number], [place] tel:[phone] Dental Clinic ext (chief complaint) Encounter for screening for dental disorders Jason Cuellar. [address] [place], [place], [id number] , [place]. tel:[phone] [facility], [address] [place] [address], [id number], [place] tel:[phone] Dental Clinic dl (chief complaint) Encounter for screening for dental disorders Jason Cuellar. [address] [place], [place], [id number] , [place]. tel:[phone] [facility], [address] [place] [address], [id number], [place] tel:[phone] Dental Clinic de (chief complaint) Encounter for screening for dental disorders Jason Cuellar. [address] [place], [place], [id number] , [place]. tel:[phone] Family History Family Member Type Diagnosis Age At Onset No Information Payers Payer name Insurance type Covered democrat ID Payton florentino(joni) Carl [facility] Medicaid [facility] [id number] D Medicaid [facility] [id number] Social History Type Description Quantity Date Captured [...] on due Goal Influenza vaccine. Due on [place] due Goal PRAPARE ASSESSMENT. Due on due Goal PRAPARE ASSESSMENT. Due on due Goal RLP. Due on due Goal Hep A. Due on du e Goal Influenza vaccine. Due on [place] due Goal Unhealthy drug u se screening. [...] Hep A. Due on du e Goal HPV. Due on due Goal PRAPARE ASSESSMENT. Due on N due Goal Tdap Vaccine. Due on 2023 due Goal Influenza vaccine. Due on No [...]
--- OUTSIDE RECORDS SUMMARY | 2025-03-22 08:55 | XMS_ITS | Clinical Summary ---
Author Organization [facility] Address [address] [place] [address], [address] [place] [address] Care Team Providers Care Exceptional Student Education Aide Name Role Phone House Sr., Thaddeus RAMOS [...] Plan of Treatment Not on file Insurance [facility]ID [place] [facility] Care Teams Exceptional Student Education Aide Relationship Specialty Start Date End Date Thaddeus Alfredo Sr., [address] [place] [address] PCP - General 05/06/16
--- OUTSIDE RECORDS SUMMARY | 2025-03-22 08:55 | XMS_ITS | Clinical Summary ---
Author Organization [facility] Address [address] [place] [address] Care Team Providers Care Roll Coating Machine Operator Name Role Phone Unavailable Primary Care Provider [...]
--- OUTSIDE RECORDS SUMMARY | 2025-03-22 08:55 | XMS_ITS | Encounter Summary ---
Author Organization [facility] Address [address] [place] [address] Care Team Providers Care Health Information Administrator Name Role Phone Thaddeus Alfredo MD Primary Care Provider [phone] Consuelo Love LATHE SCALPER OPERATOR Unavailable Unavailable Akil Cox DO Unavailable [phone] Manisha Marc LATHE SCALPER OPERATOR Unavailable [phone] Encounter Details Date Type Department Care Team (Late st Contact Info) Description 04/07/2023 Abstract [facility] [address] [place] [id number] Zane Wright DPVeronica [address] [place] [address] Social History Tobacco Use Types Packs/Day Years [...] EDT Office Visit [facility] [place] [facility] [address] [facility] [facility] [place] [id number] Marko Oscar DO [address] [facility] [address] [place], [place] [id number] documented as of this encounter Visit Diagnoses Not on filedocumented in this encounter Care Teams Health Information Administrator Relationship Specialty Start Date End Date Thaddeus Alfredo MD PCP - General Family Medicine 04/24/23 11/09/24 Consuelo Love NP Nurse Practitioner Neurology 11/10/24 Akil Cox DO [address] [place] [address] Referring Physician Neurology 11/10/24 Manisha aMrc NP [facility] [place] [address] Referring Physician Family Medicine 11/10/24 documented as of this encounter
--- OUTSIDE RECORDS SUMMARY | 2025-03-22 08:55 | XMS_ITS | Encounter Summary ---
Author Organization [facility] Address [address] [place] [address] Care Team Providers Care Personal Finance Instructor Name Role Phone Thaddeus Alfredo MD Primary Care Provider [phone] Consuelo Love DEAF AND HARD OF HEARING TEACHER Unavailable Unavailable Akil Cox DO Unavailable [phone] Chris Lopez DEAF AND HARD OF HEARING TEACHER Unavailable [phone] Encounter Details Date Type Department Care Team (Late st Contact Info) Description 08/20/2023 Clinisync Result Encounter [facility] External Department Unsolicited Teri Love PA [address] [place], [place] [id number] Social History Tobacco Use Types Packs/Day Years [...] Office Visit [facility] OBGYJosé Miguel [address] [place] [address] Marko sOcar, DO [address] [facility] [place] [address] documented as of this encounter Procedures Procedure Name Priority Date/Time Associated Diagnosis Comments US BREAST RT COMPLETE 08/20/2023 1:41 PM EST documented in this encounter Results * US BREAST RT COMPLETE (08/20/2023 1:41 PM EST) Anatomical Region Laterality Modality Radiographic Miroslava ging 08/20/2023 1:41 PM EST Narrative 08/20/2023 1:42 PM EST [address] [address] Ultrasound Report Signed Patient: DIMITRY PACK MR#: [id number] : 1990 Acct:[id number] Age/Sex: 32 / F ADM Date: 08/20/23 Loc: US Attending Dr: Teri Love Ordering Physician: Teri Love Date of Service: 08/20/23 Procedure(s): US breast RT complete Accession Number(s): [id number] cc: Teri Love; CHRIS LOPEZ Patient Name: DIMITRY PACK MR#: [id number] : 1990 Exam Date: 08/20/2023 Ordering Doctor: [...] Signed By: 08/20/23 134 DD/ 134 TD/TT: Machine Stone Polisher: Procedure Note Radiology, Radiologist, - 08/21/2023 [facility] [place] [id number] Ultrasound Report Signed Patient: DIMITRY PACK KMR#: [id number] : 1990Acct:[id number] Age/Sex: 32 FADM Date: 08/20/23 Loc: US Attending Dr: Teri Love Ordering Physician: Teri Love Date of Service: 08/20/23 Procedure(s): US breast RT complete Accession Number(s): [id number] cc: Teri Love; CHRIS LOPEZ Patient Name: DIMITRY PACK MR#: [id number] : 1990 Exam Date: 08/20/2023 Ordering Doctor: [...] M.D. Signed By:08/20/23 134 DD/ 134 TD/TT: Machine Stone Polisher: us Teri LOVELL IMG XR PROCEDURES Final Result documented in this encounter Visit Diagnoses Not on filedocumented in this encounter Care Teams Personal Finance Instructor Relationship Specialty Start Date End Date Thaddeus Alfredo MD PCP - General Family Medicine 04/24/23 11/09/24 Consuelo Love NP Nurse Practitioner Neurology 11/10/24 Akil Cox DO [address] [id number] Referring Physician Neurology 11/10/24 Chris Lopez NP [facility] [place] [address] Referring Physician Family Medicine 11/10/24 documented as of this encounter
--- OUTSIDE RECORDS SUMMARY | 2025-03-22 08:55 | XMS_ITS | Encounter Summary ---
Author Organization [facility] Address [address] [place] [address] Care Team Providers Care Marketing Communications Specialist Name Role Phone Thaddeus Alfredo MD Primary Care Provider Consuelo Love PRODUCT DEVELOPMENT SCIENTIST Unavailable Unavailable Akil Cox DO Unavailable [phone] Manisha Marc PRODUCT DEVELOPMENT SCIENTIST Unavailable Encounter Details Date Type Department Care Team (Late st Contact Info) Description 03/11/2023 Abstract [facility] [address] [facility] [place] [address] Teri Love PA [address] [facility] [address] [place], [facility] Social History Tobacco Use Types Packs/Day Years [...] Description 11/09/2025 3:00 PM EDT Office Visit [facility] NEVARE[facility] [address] [facility] [place] [phone] Marko Oscar DO [address] [facility] [place] [address] documented as of this encounter Visit Diagnoses Not on filedocumented in this encounter Care Teams Marketing Communications Specialist Relationship Specialty Start Date End Date Thaddeus Alfredo MD PCP - General Family Medicine 04/24/23 11/09/24 Consuelo Love NP Nurse Practitioner Neurology 11/10/24 Akil Cox DO [address] [place] [address] Referring Physician Neurology 11/10/24 Manisha Marc NP [address] [place] [address] [place] [address] Referring Physician Family Medicine 11/10/24 documented as of this encounter
--- OUTSIDE RECORDS SUMMARY | 2025-03-22 08:55 | XMS_ITS | Encounter Summary ---
Author Organization [facility] Address [address] [place] [address] Care Team Providers Care High School Drafting Teacher Name Role Phone Thaddeus Alfredo MD Primary Care Provider [phone] Consuelo Love SENIOR WEB ENGINEER Unavailable Unavailable Akil Cox DO Unavailable [phone] Manisha Marc SENIOR WEB ENGINEER Unavailable [phone] Encounter Details Date Type Department Care Team (Late st Contact Info) Description 10/23/2023 Abstract [facility] [address] [place] [address] Consuelo Love NP Social History [...] Visit [facility] [place] [facility] [address] [place] [address] Marko Oscar DO [address] [place] [address] documented as of this encounter Visit Diagnoses Not on filedocumented in this encounter Care Teams High School Drafting Teacher Relationship Specialty Start Date End Date Thaddeus Alfredo MD PCP - General Family Medicine 04/24/23 11/09/24 Consuelo Love NP Nurse Practitioner Neurology 11/10/24 Akil Cox DO [address] [place] [address] Referring Physician Neurology 11/10/24 Manisha Marc NP [facility] [place] [address] Referring Physician Family Medicine 11/10/24 documented as of this encounter
--- OUTSIDE RECORDS SUMMARY | 2025-03-22 08:55 | XMS_ITS | Clinical Summary ---
Author Organization [facility] Address [id number] [address] [place] [address] Care Team Providers Care Hide Examiner Name Role Phone Manisha Marc Primary Care [...] retrograde pyelogram. CT urogram cytology. [facility] bladder solution Hematuria, microscopic 06/03/2018 Overview (06/03/2018): [...] Medical Devices Not on file Insurance MEDICAID [facility] MEDICAID Care Teams Hide Examiner Relationship Specialty Start Date End Date Manisha Marc APRN-NP [address] [place] [address] PCP - General Nurse Practitioner 04/14/24
--- OUTSIDE RECORDS SUMMARY | 2025-03-22 08:55 | XMS_ITS | Clinical Summary ---
Author Organization [facility] Address [address] [place] [address] Care Team Providers Care Plier Worker Name Role Phone Consuelo Love SUGAR MIXER Unavailable Unavailable Akil Cox DO Unavailable [phone] Manisha Marc SUGAR MIXER Unavailable Allergies Active Allergy Reactions Criticality Noted Date [...] cystoscopy. Potential retrograde pyelogram. CT urogram cytology. [facility] bladder solution ==== 06/03/2018 ==== several year history of recurrent urinary tract infections and heralded by urgency frequency dysuria. Sometimes some incontinence. No documented fevers. No gross hematuria. Persistent microscopic hematuria per primary care note. Plan: Evaluate lower urinary tract cystoscopy. Potential retrograde pyelogram. CT urogram cytology. [facility] bladder solution Encounters Date Type Department Care Team Description 01/06/2025 Abstract [facility] [address] [place] [address] [place] [phone] Marko Oscar DO from Last 3 Months [...] 3:00 PM EDT Office Visit KIRIT NEVAREZ [facility] [place] [address] Marko Oscar DO [address] [place] [address] Health Maintenance Due Date Last Done Comments [...] to Health Maintenance Insurance MEDICAID Care Teams Plier Worker Relationship Specialty Start Date End Date Consuelo Love NP Nurse Practitioner Neurology 11/10/24 Akil Cox DO [address] [place] [address] Referring Physician Neurology 11/10/24 Manisha Marc NP [address] [facility] [place] [address] Referring Physician Family Medicine 11/10/24
--- OUTSIDE RECORDS SUMMARY | 2025-03-22 08:55 | XMS_ITS | Encounter Summary ---
Author Organization [facility] Address [address] [place] [address] Care Team Providers Care Family Consumer Science Teacher Name Role Phone Juni, Thaddeus Brown MD Primary Care Provider [phone] Consuelo Love CATERING SALES MANAGER Unavailable Unavailable Akil Cox DO Unavailable [phone] Manisha Marc CATERING SALES MANAGER Unavailable Encounter Details Date Type Department Care Team (Late st Contact Info) Description 03/09/2024 Orders Only KIRIT NEVAREZ [address] [facility] [place] [address] Stella Marcos LPN [address] [facility] [address] [place], [place] [id number] Social History Tobacco Use Types Packs/Day Years [...] EDT Office Visit [facility] [place] [facility] [address] [facility] [place] [address] Marko Oscar DO [address] [facility] [place] [address] documented as of this encounter Procedures [...] on filedocumented in this encounter Care Teams Family Consumer Science Teacher Relationship Specialty Start Date End Date Thaddeus Alfredo MD PCP - General Family Medicine 04/24/23 11/09/24 Consuelo Love NP Nurse Practitioner Neurology 11/10/24 Akil Cox DO [address] [place] [address] Referring Physician Neurology 11/10/24 Manisha Marc NP [address] [place] [address] [place] [address] Referring Physician Family Medicine 11/10/24 documented as of this encounter
--- OUTSIDE RECORDS SUMMARY | 2025-03-22 08:55 | XMS_ITS | Encounter Summary ---
Author Organization [facility] Address [address] [place] [address] Care Team Providers Care Public Health Service Officer Name Role Phone Thaddeus Alfredo MD Primary Care Provider Consuelo Love COMPLIANCE OFFICER Unavailable Unavailable Akil Cox DO Unavailable [phone] Manisha Marc COMPLIANCE OFFICER Unavailable Encounter Details Date Type Department Care Team (Late st Contact Info) Description 02/04/2023 Abstract [facility] [address] [facility] [place] [address] Marko Oscar DO [address] [facility] [address] [place], [facility] Social History Tobacco Use Types [...] EDT Office Visit [facility] [place] [facility] [address] [place] [address] Marko Oscar DO [address] [facility] [place] [address] documented as of this encounter Visit Diagnoses Not on filedocumented in this encounter Care Teams Public Health Service Officer Relationship Specialty Start Date End Date Thaddeus Alfredo MD PCP - General Family Medicine 04/24/23 11/09/24 Consuelo Love NP Nurse Practitioner Neurology 11/10/24 Akil Cox DO [address] [place] [address] Referring Physician Neurology 11/10/24 Manisha Marc NP [facility] [place] [address] Referring Physician Family Medicine 11/10/24 documented as of this encounter
--- OUTSIDE RECORDS SUMMARY | 2025-03-22 08:55 | XMS_ITS | Encounter Summary ---
Author Organization [facility] Address [address] [place] [address] Care Team Providers Care Assisted Living Associate Name Role Phone Thaddeus Alfredo MD Primary Care Provider [phone] Consuelo Love BLACKSMITH APPRENTICE Unavailable Unavailable Akil Cox DO Unavailable [phone] Manisha Marc BLACKSMITH APPRENTICE Unavailable Encounter Details Date Type Department Care Team (Late st Contact Info) Description 02/13/2023 Abstract [facility] N[facility] [address] [facility] [place] [address] Marko Oscar DO [address] [facility] [address] Rol[place], [facility]11 Social History Tobacco Use Types [...] EDT Office Visit [facility] [place] NEV[facility]Z [address] [facility] [place] [address] Marko Oscar DO 102 [facility] [address] [place] [address] documented as of this encounter Visit Diagnoses Not on filedocumented in this encounter Care Teams Assisted Living Associate Relationship Specialty Start Date End Date Thaddeus Alfredo MD PCP - General Family Medicine 04/24/23 11/09/24 Consuelo Love NP Nurse Practitioner Neurology 11/10/24 Akil Cox DO [address] [place] [address] Referring Physician Neurology 11/10/24 Manisha Marc NP [facility]5 [facility] [place] [address] Referring Physician Family Medicine 11/10/24 documented as of this encounter
--- OUTSIDE RECORDS SUMMARY | 2025-03-22 08:55 | XMS_ITS | Encounter Summary ---
Author Organization [facility] Address [address] [place] [address] Care Team Providers Care Mixed Crop Farmer Name Role Phone Thaddeus Alfredo MD Primary Care Provider Consuelo Love MOLD BURNER Unavailable Unavailable Akil Cox DO Unavailable [phone] Manisha Marc MOLD BURNER Unavailable [phone] Encounter Details Date Type Department Care Team (Late st Contact Info) Description 01/31/2023 Abstract NOMEvelin NEVAREZ [address] [employer] [facility] [place] [place] [address] Marko Oscar DO [address] [facility] [address] Rolando [place]on, [facility]11 Social History Tobacco Use Types Packs/Day Years [...] EDT Office Visit [facility] [place] [facility]EV[facility] 102 [facility] [place] [address] Marko Oscar DO 102 [facility] [address] [place] [address] documented as of this encounter Visit Diagnoses Not on filedocumented in this encounter Care Teams Mixed Crop Farmer Relationship Specialty Start Date End Date Thaddeus Alfredo MD PCP - General Family Medicine 04/24/23 11/09/24 Consuelo Love NP Nurse Practitioner Neurology 11/10/24 Akil Cox DO [address] [place] [address] Referring Physician Neurology 11/10/24 Manisha Marc NP [facility]5 [facility] [place] [address] Referring Physician Family Medicine 11/10/24 documented as of this encounter
--- OUTSIDE RECORDS SUMMARY | 2025-03-22 08:55 | XMS_ITS | Encounter Summary ---
Author Organization [facility] Address [address] [facility] [place] [address] Care Team Providers Care Crisis Mental Health Therapist Name Role Phone IvanConsuelo GLASS BULB SILVERER Unavailable Unavailable Akil Cox DO Unavailable [phone] Manisha Marc GLASS BULB SILVERER Unavailable [phone] Encounter Details Date Type Department Care Team (Late st Contact Info) Description 01/06/2025 Abstract NOMEvelin NEVAREZ [address] [place] [id number] Marko Oscar DO [address] [facility] [address] [place] [place], [place] [id number] Social History Tobacco Use Types Packs/Day Years [...] PM EDT Office Visit [facility]IT NEVAREZ 102 [facility] [place] [address] Marko Oscar DO [address] [place] [address] [address] [place] [address] documented as of this encounter Visit Diagnoses Not on filedocumented in this encounter Care Teams Crisis Mental Health Therapist Relationship Specialty Start Date End Date Consuelo Love NP Nurse Practitioner Neurology 11/10/24 Akil Cox DO [address] [place], [place] [address], [place] [address] Referring Physician Neurology 11/10/24 Manisha Marc NP [facility]5 [facility] [place], [place] [id number] Referring Physician Family Medicine 11/10/24 documented as of this encounter
--- OUTSIDE RECORDS SUMMARY | 2025-03-22 08:55 | XMS_ITS | Encounter Summary ---
Author Organization [facility] Address [address] [place] [address] Care Team Providers Care Lifestyle Director Name Role Phone Juni, Thaddeus Brown MD Primary Care Provider Consuelo Love WORKERS COMPENSATION SPECIALIST Unavailable Unavailable Akil Cox DO Unavailable [phone] Manisha Marc WORKERS COMPENSATION SPECIALIST Unavailable Encounter Details Date Type Department Care Team (Late st Contact Info) Description 10/18/2024 Abstract NOMEvelin NEVAREZ [address] [facility] [place] [address] Marko Oscar DO [address] [facility] [address] [place], [place] [id number] Social History Tobacco Use Types Packs/Day Years [...] Office Visit KIRIT Pérez OBGYJosé Miguel [address] [facility] [place] [phone] Marko Oscar DO [address] [facility] [place] [address] documented as of this encounter Visit Diagnoses Not on filedocumented in this encounter Care Teams Lifestyle Director Relationship Specialty Start Date End Date Thaddeus Alfredo MD PCP - General Family Medicine 04/24/23 11/09/24 Consuelo Love NP Nurse Practitioner Neurology 11/10/24 Akil Cox DO [address] [place] [address] Referring Physician Neurology 11/10/24 Manisha Marc NP [address] [place] [address] [address] [place] [address] Referring Physician Family Medicine 11/10/24 documented as of this encounter
--- OUTSIDE RECORDS SUMMARY | 2025-03-22 08:57 | XMS_ITS | CCD ---
Author Organization [facility] Providers Care Roof Tiler Name Role Phone BRENT KINNEY Referring Unavailable [...] Unavailable Celio Mullins Unavailable Manisha Marc Unavailable [phone] ROSITA Marc Primary Care Provider ROSITA Marc Attending Provider [phone] DO Celio Mullins Attending Provider [phone] Rohrbacher, CHANGE MANAGEMENT LEAD Manisha Primary Care Provider MD Clinton Frazier Attending Provider ROSITA Marc Attending Provider Diyar, CHANGE MANAGEMENT LEADBryon ThaoManisha Primary Care Provider DO Celio Mullins Attending Provider MD Edward Gilmore Attending Provider [phone] MD Clinton Frazier Attending Provider Tari, ROSITA Thaonifer Primary Care Provider MD Edward Gilmore Attending Provider [phone] DO Gwen Cox Attending Provider ROSITA Marc Primary Care Provider MD Edward Gilmore Attending Provider ROSITA Marc Attending Provider DO Gwen Cox Attending Provider ROSITA Marc Primary Care Provider MD Edward Gilmore Attending Provider ROSITA Marc Primary Care Provider MD Edward Gilmore Attending Provider [phone] ROSITA Marc Primary Care Provider MD Edward [...] Provider Manisha Marc APRN Attending Provider Tari BECKER, Manisha Primary Care Provider Edward Gilmore MD Attending Provider NO FAMILY, PHYSICIAN Primary Care Provider Unava ilable Hilaria Burgos DO L Attending Provider Tari BECKER, Manisha Primary Care Provider Edward Gilmore MD Attending Provider Manisha Marc APRN Attending Provider Edward Gilmore MD Attending Provider Ly DOBrodiee L Attending Provider Manisha Marc APRN Primary Care Provider Edward Gilmore MD Attending Provider [phone] MELA ANDERSNO Attending Unavailable GWEN COX Attending Unavailable MANISHA MARC Referring Unavailab MARIO Garcia Attending Unavailable GWEN COX Referring Unavailable CONSUELO LOVE Attending Unavailable MARKO OSCAR Attending Unavailable CONSUELO LOVE Attending Unavailable Manisha Marc APRN Primary Care Provider Wilfredo CROWLEY, Tiffanie Attending Provider Edward Gilmore MD Attending Provider Manisha Marc APRN Attending Provider Edward Gilmore MD Attending Provider Sakina Real APRN Attending Provider Edward Gilmore MD Attending Provider [phone] Syed Leonard MD Attending Provider [phone] Deirdre CROWLEY, Edward Attending Provider Casandra Hassan APRN Attending Provider Edward Gilmore Admitting Unavailab le Edward Gilmore Attending Unavailab le Rohrbacher, Manisha Primary Care Unavailable Ly, Hilaria L Admitting Unavailable Ly, Hilaria Buenrostro Attending Unavailable Rohrbacher, Manisha Primary Care Unavailable Casandra Hassan Admitting Unavailable Casandra Hassan Attending Unavailable Rohrbacher, Manisha Attending Unavailable Rohrbacher, Manisha Admitting Unavailable NO FAMILY, PHYSICIAN Primary Care Unavailable Rohrbacher, Manisha Admitting Unavailable Rohrbacher, Manisha Attending Unavailable Rohrbacher, Manisha Admitting Unavailable Rohrbacher, Manisha Attending Unavailable Garret CROWLEY, Bud Denis Attending Unavailable Garret CROWLEY, Bud Denis Attending Unavailable Allergies Allergy Classification Reported Allergen(s) Allergy Type Date of Onset Reaction(s) Facility (20 sources) Amoxicillin; Translations: [AMOXICILLIN] Drug Allergy 07-08-20 16 rash [facility] Repository (20 sources) Cefaclor; Translations: [CEFACLOR] Drug Allergy 04-14-20 15 [facility] Repository (20 sources) Erythromycin; Translations: [ERYTHROMYCIN] Drug Allergy 04-14-20 15 hives Rash [facility] Repository (19 sources) Cefaclor; Translations: [Ceclor] Drug Allergy 04-17-20 15 [facility] Repository (20 sources) Erythromycin Drug Allergy 04-17-20 15 Unknown Reaction, [facility] Repository (20 sources) Cephalosporins (Antibiotic); Translations: [Cephalosporins] Allergy to substance 12-10-19 Unknown Reaction, Rash [facility] (2 sources) Lactulose Drug Allergy 02-12-20 Unknown Reaction [facility] (2 sources) Baclofen Drug Allergy 03-11-20 Unknown Reaction [facility] (1 source) Erythromycin Drug Allergy 03-03-20 [facility] Repository Medications Current Medications Medication Drug Class(es) Dates Sig (Normalized) Sig (Original) [id number] 200 actuat albuterol 0.09 mg/actuat metered dose [...] Breath Or Wheezing February 12, 2020 12:00am Complies with drug therapy take 2 puff(s) by in halation every six hours albuterol HFA 90 mcg/act inhaler Inhale 2 puffs every 6 (six) hours if needed. Active take 1 puff(s) by in halation every four hours as needed Ventolin HFA 108 (90 Base) MCG/ACT 1 puff as needed Inhalation every 4 hrs Active ARIPiprazole 5 mg oral tablet (20 sources) Atypical Antipsychotic Start: 02-17-2025 take 1 tablet by mouth once daily Aripiprazole 5 mg tablet Active 5 MG PO Daily February 17, 2025 12:00am Complies with drug therapy Start: 03-05-2020 End: 12-07-2021 take 1 tablet by mouth once daily Aripiprazole 5 mg Tablet Discontinued 5 MG PO Daily March 05, 2020 12:00am December 07, 2021 10:45am Isabellasherifjez Masterson-Cate Corrales Active betamethasone 0.5 mg/ml / clotrimazole 10 mg/ml topical cream (2 sources) Azole Antifungal, Corticosteroid Start: 11-03-2024 End: 11-10-2024 clotrimazole-betamethasone (Lotrisone) cream Indications: Vaginal itching Apply 1 application topically Daily for 7 days Apply to affected area daily for 7 days 45 g 11/03/2024 11/10/2024 Active DULoxetine 60 mg delayed release oral capsule (20 sources) Serotonin and Norepinephrine Reuptake Inhibitor Start: 03-03-2025 take 1 capsule by mouth twice daily Duloxetine 60 mg capsule,delayed release(DR/EC) Active 60 MG PO Twice daily March 03, 2025 10:29am Complies with drug therapy Start: 11-26-2023 End: 03-03-2025 take 2 capsules by mouth once daily Duloxetine 60 mg capsule,delayed release(DR/EC) Discontinued 120 MG PO Daily 180 90 April 05, 2024 1:28pm March 03, 2025 10:31am Start: 11-26-2023 End: 04-05-2024 take 120 mg [...] day for 90 days Active Cymbalta Active lamoTRIgine 25 mg oral tablet (20 sources) Mood Stabilizer, Anti-epileptic Agent Start: 10-01-2023 take 1 tablet by mouth twice daily Lamotrigine 25 mg tablet Active 25 MG PO Twice daily October 01, 2023 1:00am Complies with drug therapy lisinopril 10 mg oral tablet (20 sources) Angiotensin Converting Enzyme Inhibitor Start: 11-26-2023 End: 03-14-2025 take 1 tablet by mouth once daily Lisinopril 10 mg tablet Active 10 MG PO Daily March 14, 2025 7:46am Complies with drug therapy Start: 10-01-2023 End: 11-26-2023 take 10 mg [...] Daily at bedtime October 01, 2023 10:15am Complies with drug therapy Start: 10-01-2023 End: 10-01-2023 take 1 mg [...] MG PO Daily November 26, 2023 12:00am Complies with drug therapy Start: 11-26-2023 take 1000 mg by mout [...] Active methenamine hippurate 1000 mg oral tablet (10 sources) Start: 5 Methenamine Hippurate 1 gram tablet Active 1 GM PO Twice daily September 27, 2024 1:00am Complies with drug therapy methocarbamol 500 mg oral tablet (6 sources) Muscle Relaxant Start: 5 take 1 tablet by mouth twice daily as needed Methocarbamol 500 mg tablet Active 500 MG PO Twice daily as needed February 17, 2025 12:00am Complies with drug therapy 24 hr mirabegron 25 mg extended release oral tablet (6 sources) beta3-Adrenergic Agonist Start: 5 take 1 tablet by mouth every twenty-four hours Mirabegron (Myrbetriq) 25 mg tablet extended release 24 hr Active 25 MG PO Q24H February 17, 2025 12:00am Complies with drug therapy Multiple Vitamins-Minerals (MULTI COMPLETE PO) (13 sources) Multiple Vitamins-Minerals (MULTI COMPLETE PO) Multi Complete Active Multivitamin preparation (20 sources) Start: 2 take 1 tablet by mouth once daily Multivitamin Active 1 TAB PO Daily December 07, 2021 12:00am Start: 12-07-2021 take 1 tablet by miranda th once daily Multivitamin Active 1 TAB PO Daily December 06, 2021 11:00pm Multivitamin Act rafal Multivitamin Tablet (13 sources) Start: 12-07-2021 take 1 tablet by mouth once da sun Start: 12-07-2021 take 1 tablet by miranda th once daily Multivitamin Tablet Active 1 TAB PO Daily December 07, 2021 12:00am Complies with drug therapy Start: 12-07-2021 take 1 tablet by miranda th once daily Multivitamin Tablet Active 1 TAB PO Daily December 07, 2021 12:00am Start: 12-07-2021 take 1 tablet by miranda th once daily Multivitamin Tablet Active 1 TAB PO Daily December 06, 2021 11:00pm pantoprazole 40 mg delayed release oral tablet (13 sources) Proton Pump Inhibitor Start: 08-19-2024 take 1 tablet by mouth once daily Pantoprazole 40 mg tablet,delayed release (DR/EC) Active 40 MG PO Daily August 19, 2024 1:00am Complies with drug therapy pregabalin 75 mg oral capsule (2 sources) Start: 03-11-2025 take 1 capsule by mouth twice daily Pregabalin 75 mg capsule Active 75 MG PO Twice daily March 11, 2025 12:00am Complies with drug therapy valACYclovir 1000 mg oral tablet (20 sources) [...] Drug Class(es) Dates Sig (Normalized) Sig (Original) baclofen 10 mg oral tablet (20 sources) gamma-Aminobutyri c Acid-ergic Agonist Start: 06-15-2024 End: 03-03-2025 take 1 tablet by mouth once daily Baclofen 10 mg tablet Discontinued 10 MG PO Daily June 15, 2024 12:00am March 03, 2025 10:27am Start: 06-15-2024 Baclofen Activ e MG PO June 14, 2024 11:00pm Start: 06-15-2024 Baclofen Activ e MG PO June 15, 2024 12:00am 24 hr buPROPion hydrochloride 150 mg extended release oral tablet (20 sources) Aminoketone Start: 02-12-2020 End: 02-17-2020 take 1 tablet by mouth once daily Bupropion Hcl 150 mg tablet extended release 24 hr Discontinued 150 MG PO Daily February 12, 2020 12:00am February 17, 2020 11:57am cariprazine 1.5 mg oral capsule (15 sources) Atypical Antipsychotic Start: 10-10-2023 End: 11-03-2024 Vraylar 1.5 MG capsule 10/10/2023 11/03/2024 Discontinued take 1 capsule by [facility] every twenty-four hours Vraylar 1.5 MG 1 capsule Orally Once a day Active ciprofloxacin 250 mg oral tablet (20 sources) Quinolone Antimicrobial Start: 08-12-2024 End: 08-19-2024 [...] 02-17-2020 Citalopram 40 mg tablet Discontinued MG February 12, 2020 12:00am February 12, 2020 8:18pm Start: 02-12-2020 End: 02-12-2020 Citalopram Discontinued MG T ABLET February 11, 2020 11:00pm February 12, 2020 7:18pm clindamycin 150 mg oral capsule (20 sources) Lincosamide Antibacterial Start: 08-28-2024 End: 09-27-2024 [...] hour prior to procedure 09/25/2023 11/03/2024 Discontinued doxycycline hyclate 100 mg oral capsule (6 sources) Tetracycline-class Drug Start: 02-22-2025 End: 03-03-2025 take 1 capsule by mouth twice daily Doxycycline Hyclate 100 mg capsule Discontinued 100 MG PO Twice daily 14 February 22, 2025 12:00am March 03, 2025 10:28am Start: 06-29-2023 take 1 tablet by miranda th every twelve hours Doxycycline Hyclate 100 MG 1 tablet Orally Twice a day for 10 day(s) Jun, Active ferrous sulfate 325 mg oral tablet (20 [...] Jun, Active gabapentin 300 mg oral capsule (20 sources) Anti-epileptic Agent Start: 02-12-2020 End: 03-03-2025 take 1 capsule by mouth three times daily as needed for pain Gabapentin 300 mg capsule Discontinued 300 MG PO Three times daily as needed for pain or fever October 01, 2023 1:00am March 03, 2025 10:28am Free[employer] capsule Orally Once a day PRN; Note: Source Status: RefillPRN; Refills: 0; Provider: Tari Garnett take 1 capsule by [facility] once daily as needed Gabapentin 300 [...] as needed Orally every 8 hrs Not-Taking ibuprofen 800 mg oral tablet (16 sources) Nonsteroidal Anti-inflammatory Drug Start: 06-15-2024 End: 03-03-2025 take 1 tablet by mouth twice daily as needed for pain Ibuprofen 800 mg tablet Discontinued 800 MG PO Twice daily as needed for fever or pain June 15, 2024 12:00am March 03, 2025 10:28am Start: 06-15-2024 Ibuprofen Acti ve MG PO June 14, 2024 11:00pm Ketorolac (15 sources) Nonsteroidal Anti-inflammatory Drug, Cyclooxygenase Inhibitor Start: 08-03-2018 Toradol per 15 mg Jul, 60 mg meloxicam 15 mg oral tablet (20 sources) Nonsteroidal Anti-inflammatory Drug Start: 06-15-2024 End: 03-03-2025 take 1 tablet by mouth once daily Meloxicam 15 mg tablet Discontinued 15 MG PO Daily June 15, 2024 12:00am March 03, 2025 10:28am Start: 06-15-2024 Meloxicam Acti ve MG PO June 14, 2024 11:00pm 24 hr metoprolol succinate 50 mg extended release oral tablet (20 sources) beta-Adrenergic Toña Start: 02-12-2020 End: 12-07-2021 take 1 tablet by mouth once daily Metoprolol Succinate 50 mg tablet extended release 24 hr Discontinued 50 MG PO Daily February 12, 2020 12:00am December 07, 2021 10:46am niacin 500 mg oral tablet (19 sources) Nicotinic Acid Start: 11-26-2023 End: 04-21-2024 Niacin (Inositol Niacinate) 500 mg tablet Discontinued TAB PO November 26, 2023 12:00am April 21, 2024 2:37pm Start: 11-26-2023 End: 04-21-2024 Niacin (Inositol Niacinate) Discontinued TAB PO November 25, 2023 11:00pm April 21, 2024 1:37pm nitrofurantoin, macrocrystals 25 mg / nitrofurantoin, monohydrate 75 mg oral capsule (17 sources) Nitrofuran Antibacterial Start: 06-15-2024 End: 06-21-2024 take 1 capsule by mouth every twelve hours at mealtime Nitrofurantoin Monohyd/M-Cryst (Macrobid) 100 mg capsule Discontinued 100 MG PO Every 12 hours 05 22June 15, 2024 12:00am June 21, 2024 12:32pm must administer with a meal/food Start: 05-31-2021 take 1 capsule by [facility] every twelve hours Macrobid 100 MG 1 cap(s) Orally bid for 5 day(s) May, Active ondansetron 4 mg disintegrating oral tablet (11 sources) Serotonin-3 Receptor Antagonist Start: 09-27-2024 End: 02-22-2025 take 1 tablet by mouth every eight hours as needed for nausea and vomiting Ondansetron 4 mg tablet,disintegrating Discontinued 4 MG PO Every 8 hours as needed for nausea and vomiting 10 September 27, 2024 1:00am February 22, 2025 4:48pm Start: 07-07-2023 take 1 tablet by miranda th three times daily as needed Zofran 4 MG 1 tablet Orally tid prn ODT Jun, Active phenazopyridine hydrochloride 200 mg oral tablet (20 sources) Start: 08-09-2024 End: 08-19-2024 take 1 [...] Three times daily as needed for pain 9 June 15, 2024 12:00am June 21, 2024 12:24pm [...] day(s) May, Active Sod Picosulf-Mag Ox-Citric Ac (11 sources) Start: 07-20-2024 End: 08-19-2024 take 1 [...] mg / trimethoprim 160 mg oral tablet (17 sources) Dihydrofolate Reductase Inhibitor Antibacterial, Sulfonamide Antimicrobial Start: 02-17-2025 End: 03-03-2025 take 1 tablet by mouth twice daily Sulfamethoxazole-Trimethoprim (Bactrim Ds) 800-160 mg tablet Discontinued 1 TAB PO Twice daily 10 February 17, 2025 12:00am March 03, 2025 10:31am Start: 08-09-2024 End: 08-12-2024 take 1 tablet by mouth twice daily Sulfamethoxazole-Trimethoprim (Bactrim D s) 800-160 mg tablet Discontinued 1 TAB PO Twice daily 10 August 09, 2024 1:00am August 12, 2024 9:45am triamcinolone acetonide 1 mg/ml topical cream (3 sources) Corticosteroid Start: 02-22-2025 End: 03-11-2025 Triamcinolone Acetonide 0.1 % cream Discontinued 1 APPLIC TOPICAL Three times daily 15 February 22, 2025 12:00am March 11, 2025 12:18pm ubidecarenone 200 mg oral capsule (19 sources) Start: 11-26-2023 End: 04-21-2024 take 10 [...] disorder, unspecified type] 08-18-2024 Chronic Cardiac dysrhythmias (20 sources) Palpitations; Translations: [Palpitations] 11-03-2023 Episodic Chronic obstructive pulmonary disease and bronchiectasis (5 sources) Acute exacerbation of chronic bronchitis; Translations: [Bronchitis, chronic with acute exacerbation] Chronic Chronic obstructive pulmonary disease and bronchiectasis (1 source) Bronchitis, not specified as acute or chronic Episodic Conditions associated with dizziness or vertigo (20 sources) Lightheadedness; Translations: [Dizziness and giddiness] 11-03-2023 Episodic Deficiency and other anemia (16 sources) Iron deficiency anemia; Translations: [Iron deficiency anemia, unspecified] 06-08-2024 Episodic Delirium, dementia, and amnestic and other cognitive disorders (2 sources) Cognitive disorder; 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] 08-18-2024 Chronic Developmental disorders (10 sources) Communication disorder; 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, unspecified] 11-16-2024 Chronic Diabetes mellitus without complication (20 sources) Impaired fasting glucose; Translations: [Prediabetes] Episodic E Codes: Adverse effects of medical drugs (3 sources) Adverse reaction to drug; Translations: [Adverse effect of unspecified drugs, medicaments and biological substances, initial encounter] 02-22-2025 Episodic Epilepsy; convulsions (20 sources) Seizure disorder; [...] 06-17-2021 Resolved: 07-06-2021 Episodic Malaise and fatigue (20 sources) Fatigue; Translations: [Other fatigue] 04-22-2024 Episodic Menstrual disorders (20 sources) Amenorrhea; Translations: [Amenorrhea, unspecified] Onset: 03-07-2022 Chronic Mood disorders (20 sources) Recurrent major depression in partial remission; Translations: [Major depressive disorder, recurrent, in partial remission] Onset: 05-31-2024 Chronic Nausea and vomiting (1 source) Nausea with vomiting, unspecified Episodic Nutritional deficiencies (2 sources) Vitamin D deficiency; Translations: [Vitamin D deficiency, unspecified] 03-22-2025 Chronic Nutritional deficiencies (20 sources) Iron deficiency; Translations: [Iron deficiency] 11-04-2023 [...] disorders (1 source) Diarrhea, unspecified Episodic Other inflammatory condition of skin (2 sources) Scalp itchy; Translations: [Pruritus, unspecified] 03-11-2025 Episodic Other liver diseases (20 sources) Fatty (change of) liver, not elsewhere classified; Translations: [Nonalcoholic fatty liver disease] 06-21-2024 Chronic Other lower respiratory disease (16 sources) Snoring; Translations: [Snoring] 04-22-2024 Episodic Other lower respiratory disease (16 sources) Apnea; Translations: [Apnea, not elsewhere classified] [...] chronic pain Chronic Other nervous system disorders (17 sources) Aphasia; Translations: [Aphasia] 04-21-2024 Chronic Other [...] adult; Translations: [BMI 40.0-44.9, adult] Chronic Other nutritional; endocrine; and metabolic disorders (2 sources) Failure to lose weight; Translations: [Other symptoms and signs concerning food and fluid intake] 03-22-2025 Episodic Other screening for suspected conditions (not mental disorders or infectious disease) (4 sources) Encounter for screening for malignant neoplasm of cervix; Translations: [ENC SCREENING MALIG NEOPLASM CERV] Onset: 10-28-2022 Episodic Other skin disorders (11 sources) Excessive sweating; Translations: [Generalized hyperhidrosis] 08-10-2024 Episodic Other skin disorders (4 sources) Generalized hyperhidrosis; Translations: [Generalized hyperhidrosis] 08-09-2024 Episodic Other skin disorders (8 sources) Localized swelling, mass and lump, head; Translations: [Swelling, mass, or lump in head and neck] 11-15-2024 Episodic Other upper respiratory infections (4 sources) Acute upper respiratory infection, unspecified; Translations: [Acute pharyngitis, unspecified] Onset: 06-17-2021 Resolved: 06-17-2021 Episodic Residual codes; unclassified (19 sources) Obstructive sleep apnea syndrome; Translations: [Obstructive sleep apnea (adult) (pediatric)] 06-21-2024 Chronic Residual codes; unclassified (5 sources) Obstructive sleep apnea (adult) (pediatric); Translations: [Obstructive sleep apnea (adult)(pediatric)] 06-21-2024 Chronic Residual codes; unclassified (17 sources) Amnesia; Translations: [Other amnesia] 04-21-2024 Episodic Residual codes; unclassified (20 sources) Personal history of other specified conditions; Translations: [History of seizure] 04-21-2024 Episodic Residual codes; unclassified (6 sources) Other amnesia; Translations: [Memory loss] 04-21-2024 Episodic Skin and subcutaneous tissue infections (11 sources) Cellulitis; Translations: [Cellulitis, unspecified] 08-28-2024 Episodic Spondylosis; intervertebral disc disorders; other back problems (20 sources) Sacroiliitis, not elsewhere classified; Translations: [Other intervertebral disc degeneration, lumbar region] Onset: 11-08-2022 Chronic Unclassified (2 sources) E66.01 - Morbid (severe) obesity due to excess calories,Z59.41 - Food insecurity,R73.03 - Prediabetes,E88.819 - Insulin resistance, unspecified Urinary tract infections (20 sources) Urinary tract infection, site not specified; Translations: [Acute urinary tract infection] Onset: 06-03-2018 Resolved: 05-31-2021 Episodic Viral infection (13 sources) Herpes simplex of female genitalia; Translations: [Herpesviral infection of other urogenital tract] Onset: 02-11-2023 02-11-2023 Chronic Viral infection (20 sources) Viral infection, unspecified; Translations: [Herpes simplex] Episodic Past or Other Problems Problem Classification Problem Date Documented Da te Episodic/Chronic Deficiency and other anemia (13 sources) Anemia; Translations: [Anemia, unspecified] Onset: 02-11-2023 02-11-2023 Episodic Deficiency and other anemia (4 sources) Iron deficiency anemia, unspecified; Translations: [Iron deficiency anemia, unspecified] Onset: 08-19-2024 08-24-2024 Episodic Other endocrine disorders (13 sources) Disorder [...] Value Interpretation Reference Range Facility Urine Cultureon 02-17-2025 Bacteria identified Cx Nom (U) ORGANISM: Escherichia coli (O:ESCCOL) [place] Count >100,000 Aerobic RENATE Charge (NMIC56) -- SUSCEPTIBILITY - ORGANISM: O:ESCCOL ANTIBIOTIC INTERPRETATION RENATE Amikacin S <16 Amoxacillin/K Clavulanate S <8 Ampicillin S <8 Ampicillin/Sulbactam S <4 Aztreonam S <4 Cefazolin S <2 Cefepime S <2 Ceftazidime S <1 Ceftazidime/Avibactam S <4 Ceftolozane/Tazobactam S <2 Ceftriaxone S <1 Cefuroxime S <4 Ciprofloxacin S <0.25 Ertapenem S <0.5 Gentamicin S <2 Levofloxacin S <0.5 Meropenem S <1 Meropenem/Vaborbactam S <2 Nitrofurantoin S <32 Piperacillin/Tazobactam S <8 Tetracycline S <4 Tigecycline S <2 Tobramycin S <2 Trimethoprim/Sulfametho xazole S <0.5 S = SUSCEPTIBLE I = INTERMEDIATE R [...] RESISTANT TO ALL B-LACTAM DRUGS. PERFORMED BY: [address] [id number] PATHOLOGIST SALES RECEPTIONIST KVNG CONLEY M.D. Normal [facility] Comment on above: Performed By: #### C UU #### [place] [id number] [facility] Urine cultureOrdered By: Keesha Marc on 02-17-2025 Bacteria identified Cx Nom (U) Escherichia coli Abnormal [facility] Outside Recordson 02-02-2025 Outside Records [id number]#1.00O [facility] Outside Records [id number]#1.00O [facility] Outside Records [id number]#1.00O [facility] Outside Records [id number]#1.00[facility] Outside Records [id number]#1.00O [facility] Outside Records [id number]#1.00[facility] Outside Records [id number]#1.00O [facility] Outside Records [id number]#1.00O [facility] Outside Records [id number]#1.00O [facility] Outside Records [id number]#1.00O [facility] Outside Records [id number]#1.00O [facility] Albumin [Mass/volume] in Ser um or Plasmaon 12-28-2024 Albumin [Mass/Vol] 3.4 g/dL 2.9-4.[address] [facility] Basophils Auto (Bld) [#/Vol] on 12-28-2024 Basophils (Bld) [#/Vol] 0.1 10 3/uL 0.0-0.1 [facility] Basophils/100 WBC Auto (Bld) on 12-28-2024 Basophils/100 WBC (Bld) 0.8 % 0.2-2.0 F [facility] Eosinophils/100 WBC Auto (Bl d)on 12-28-2024 Eosinophils/100 WBC (Bld) 2.0 % 0.9-7.0 [facility] Erythrocyte distribution wid th Auto (RBC) [Ratio]on 12-28-2024 Erythrocyte distribution width (RBC) [Ratio] 12.1 % 11.0-15.0 [facility] Hematocrit Auto (Bld) [Volum e fraction]on 12-28-2024 Hematocrit (Bld) [Volume fraction] 41.5 % 36.0-48.0 [facility] Hemoglobin [Mass/volume] in Bloodon 12-28-2024 Hemoglobin (Bld) [Mass/Vol] 13.6 g/dL 12.0-16.0 [facility] IgA [Mass/volume] in Serum o r Plasmaon 12-28-2024 IgA [Mass/Vol] 122 mg/dL 87-352 [facility] IgE [Units/volume] in Serum or Plasmaon 12-28-2024 IgE Qn 236 [IU]/mL 6-495 [facility] Comment on above: Performed at: [facility] [employer] [address] [id number] Director: Jeanna Case MD, Phone: [phone] IgG [Mass/volume] in Serum o r Plasmaon 12-28-2024 IgG [Mass/Vol] 1135 mg/dL [phone] [facility] IgM [Mass/volume] in Serum o r Plasmaon 12-28-2024 IgM [Mass/Vol] 105 mg/dL 26-217 [facility] Immunoglobulin light chains. kappa.free [Mass/volume] in Serumon 12-28-2024 Immunoglobulin light chains.kappa.free (S) [Mass/Vol] 18.1 mg/L 3.3-19.4 [facility] Immunoglobulin light chains. kappa.free/Immunoglobulin light chains.lambda.free [Katelin 12-28-2024 Immunoglobulin light chains.kappa.free/Immun oglobulin light chains.lambda.free (S) [Mass ratio] 0.92 0.26-1.65 [facility] Comment on above: [facility] [place] [id number] Director: Cassius Zhong PhD, Phone: [phone] Immunoglobulin light chains. lambda.free [Mass/volume] in Serum or Plasmaon 12-28-2024 Immunoglobulin light chains.lambda.free [Mass/Vol] 19.6 mg/L 5.7-26.3 [facility] Laboratory - Chemistry and C hemistry - challengeon 12-28-2024 LDH [Catalytic activity/Vol] 190 U/L 81-234 [facility] Laboratory - Hematology and Cell countson 12-28-2024 ESR (Bld) [Velocity] 31 mm/h High <=20 [facility] Immature granulocytes/100 WBC (Bld) 0.2 % 0.0-0.5 [facility] Leukocytes [#/volume] correc carmelita for nucleated erythrocytes in Blood by Automated counon 12-28-2024 WBC corrected for nucl RBC Auto (Bld) [#/Vol] 6.7 10 3/uL 4.0-11.0 [facility] Lymphocytes Auto (Bld) [#/Vo l]on 12-28-2024 Lymphocytes (Bld) [#/Vol] 2.5 10 3/uL 1.2-3.8 [facility] Lymphocytes/100 WBC Auto (Bl d)on 12-28-2024 Lymphocytes/100 WBC (Bld) 37.0 % 20.5-60.0 [facility] MCH Auto (RBC) [Entitic mass ]on 12-28-2024 MCH (RBC) [Entitic mass] 30.6 pg 26.7-34.0 [facility] MCHC Auto (RBC) [Mass/Vol]on 12-28-2024 MCHC (RBC) [Mass/Vol] 32.8 g/dL 29.9-35.2 [facility] MCV Auto (RBC) [Entitic vol] on 12-28-2024 MCV (RBC) [Entitic vol] 93.5 fL 81.0-99.0 [facility] Monocytes Auto (Bld) [#/Vol] on 12-28-2024 Monocytes (Bld) [#/Vol] 0.3 10 3/uL 0.3-0.8 [facility] Monocytes/100 WBC Auto (Bld) on 12-28-2024 Monocytes/100 WBC (Bld) 4.8 % 1.7-12.0 F [facility] Neutrophils Auto (Bld) [#/Vo l]on 12-28-2024 Neutrophils (Bld) [#/Vol] 3.7 10 3/uL 1.4-6.5 [facility] Neutrophils/100 WBC Auto (Bl d)on 12-28-2024 Neutrophils/100 WBC (Bld) 55.2 % 43.0-75.0 [facility] No Panel Informationon 12-28 C-Reactive Protein, Quantitative 0.96 mg/dL High <=0.50 [facility] Eosinophils # (Auto) 0.1 10 3/uL 0.0-0.7 [facility] Immature Granulocyte # (Auto) 0.01 10 3/uL 0.00-0.03 [facility] Protein Electrophoresis M-Manpreet Not Observed g/dL Not Observed [facility] Protein Electrophoresis Note Comment . [facility] Comment on above: Protein electrophore sis scan will follow via computer,mail, or cuff folder delivery. Platelet mean volume Auto (B ld) [Entitic vol]on 12-28-2024 Platelet mean volume (Bld) [Entitic vol] 9.5 fL 9.5-13.5 [facility] Platelets Auto (Bld) [#/Vol] on 12-28-2024 Platelets (Bld) [#/Vol] 191 10 3/uL 150-450 [facility] Protein [Mass/volume] in Ser um or Plasmaon 12-28-2024 Protein [Mass/Vol] 6.6 g/dL 6.0-8.[address] [facility] RBC Auto (Bld) [#/Vol]on RBC (Bld) [#/Vol] 4.44 10 6/uL 4.20-5.40 [facility] Reticulocytes/100 RBC Auto ( Bld)on 12-28-2024 Reticulocytes/100 RBC (Bld) 1.53 % 0.60-3.10 [facility] Serum globulin measurement ( mass/volume)on 12-28-2024 Globulin (S) [Mass/Vol] 3.2 g/dL 2.2-3.9 [facility] Serum or plasma albumin/glob ulin mass ratioon 12-28-2024 Albumin/Globulin [Mass ratio] 1.1 {ratio} 0.7-1.7 [facility] Serum or plasma alpha 1 glob ulin measurement by electrophoresis (mass/volume)on 12-28-2024 Alpha 1 globulin Elph [Mass/Vol] 0.2 g/dL 0.0-0.4 [facility] Serum or plasma alpha 2 glob ulin measurement by electrophoresis (mass/volume)on 12-28-2024 Alpha 2 globulin Elph [Mass/Vol] 0.8 g/dL 0.4-1.0 [facility] Serum or plasma beta globuli n measurement by electrophoresis (mass/volume)on 12-28-2024 Beta globulin Elph [Mass/Vol] 1.0 g/dL 0.7-1.3 [facility] Serum or plasma gamma globul in measurement by electrophoresis (mass/volume)on 12-28-2024 Gamma globulin Elph [Mass/Vol] 1.1 g/dL 0.4-1.8 [facility] Serum or plasma immunoelectr ophoresis interpretationon 12-28-2024 Interpretation IEP [Interp] Comment . [facility] Comment on above: No monoclonality det ected. US PELVIC COMPLETE W/ TVon 0 11-30-2024 [...] II, MD, PHD at 01-Dec-2024 12:04:08 AM [facility] Cont[facility] Normal Not Available Comment on above: Order Comment: US PE LVIS-TRANSVAG IF INDICATED No LMP recorded. HCG ( test) Ql (U)o n 11-03-2024 Interpretation and review of laboratory results Normal [facility] Preg Test, Ur Negative Negative [facility] Human papilloma virus 16+18+ 31+33+35+39+45+51+52+56+58+59+66+68 DNA [Presence] in [place] 11-03-2024 HPV 16+18+31+33+35+39+45+51 +52+56+58+59+66+68 DNA Probe+sig amp Ql (Cvx) Human papilloma virus 16+18+31+33+35+39+45+51 +52+56+58+59+66+68 DNA [Presence] in Cer Negative [facility] Comment on above: This nucleic acid am plification test detects fourteen high-risk HPV types (16,18,31,33,35,39,45,51,52,56,58,59,66,68)without differentiation.Performed at: = - [facility] [address] [place], [place] [id number] Director: Monse Cardona MD, Phone: [phone] at: WB - [facility] [address] [place], [place] [id number] Director: Monse Cardona MD, Phone: [phone] No Panel Informationon 11-03 HPV High Risk Other Comment Note . [facility] Comment on above: TESTS RESULT FLAG UN ITS REF RANGE LAB -DIAGNOSIS: 02 NEGATIVE FOR INTRAEPITHELIAL LESION OR MALIGNANCY.Specimen adequacy: 02 Satisfactory for evaluation. Endocervical and/or squamous metaplastic cells (endocervical component) are present.Performed by: 02 Hiro Garces, Caramel Candy Maker (ASCP). 02Note: Note 02 The Pap smear [...] High <-Panic Low,>-Panic High,A-Abnormal,AA-Critical Abnormal ------Performed at:02 [facility] [address] [facility] [place] [address] Monse Cardona MD, Reference Lab Test Patient Age Note . [facility] Comment on above: TESTS RESULT FLAG UN ITS REF RANGE LAB - Clinician Provided Cytology Information Source.............Cervix;Endocervix No. of containers..01 ThinPrep VialAge Algo ACOG Elise... FLAG LEGEND: L-Low Normal,H-High Normal,LL-Alert Low,HH-Alert High <-Panic Low,>-Panic High,A-Abnormal,AA-Critical Abnormal ------Performed at:01 =G [facility] [address] [facility] [place] [address] Monse Cardona MD, Basophils Auto (Bld) [#/Vol] on 10-12-2024 Basophils (Bld) [#/Vol] Automated basoph il count 0.0-0.1 [facility] Basophils/100 WBC Auto (Bld) on 10-12-2024 Basophils/100 WBC (Bld) Automated basophil % 0. 2-2.0 [facility] Eosinophils/100 WBC Auto (Bl d)on 10-12-2024 Eosinophils/100 WBC (Bld) Automated eosinophil % 0.9-7.0 [facility] Erythrocyte distribution wid th Auto (RBC) [Ratio]on 10-12-2024 Erythrocyte distribution width (RBC) [Ratio] Erythrocyte distribution width [Ratio] by Automated count 11.0-15.0 [facility] Estimated glomerular filtrat ion rate (GFR) non- Americanon 10-12-2024 GFR/1.73 sq M.predicted among non-blacks MDRD (S/P/Bld) [Vol rate/Area] Estimated glomerular filtration rate (GFR) non- >=60 mL/min/1.7 3m 2 [facility] Hematocrit Auto (Bld) [Volum e fraction]on 10-12-2024 Hematocrit (Bld) [Volume fraction] Hematocrit [Volume Fraction] of Blood by Automated count 36.0-48.0 [facility] Hemoglobin [Mass/volume] in Bloodon 10-12-2024 Hemoglobin (Bld) [Mass/Vol] Hemoglobin [Mass/volume] in Blood 12.0-16.0 [facility] Iron binding capacity [Mass/ volume] in Serum or Plasmaon 10-12-2024 Iron binding capacity [Mass/Vol] Iron binding capacity [Mass/volume] in Serum or Plasma 250.0-450. 0 [facility] Iron saturation [Mass Fracti on] in Serum or Plasmaon 10-12-2024 Iron saturation [Mass fraction] Iron saturation [Mass Fraction] in Serum or Plasma [facility] Laboratory - Chemistry and C hemistry - challengeon 10-12-2024 Calcium [Mass/Vol] 9.0 mg/dL 8.5-10.[address] [facility] Chloride [Moles/Vol] 104 mmol/L 98-107 [facility] CO2 [Moles/Vol] 26.8 mmol/L 21.0-32.0 [facility] Creatinine [Mass/Vol] 0.73 mg/dL 0.55-1.02 [facility] Ferritin [Mass/Vol] 321.0 ng/mL High 8.0-252.0 [facility] GFR/1.73 sq M.predicted MDRD (S/P/Bld) [Vol rate/Area] mL/min/{1.73_m2} >=60 mL/min/1.7 3m 2 [facility] Glucose [Mass/Vol] 89 mg/dL 74-[address] [facility] Iron [Mass/Vol] 70.0 ug/dL 50.0-170.0 [facility] Potassium [Moles/Vol] 4.4 mmol/L 3.5-5.1 [facility] Sodium [Moles/Vol] 138 mmol/L 136-[address] [facility] Urea nitrogen [Mass/Vol] 10.0 mg/dL 7.0-18.0 [facility] Urea nitrogen/Creatinine [Mass ratio] 13.7 mg/mg [facility] Laboratory - Hematology and Cell countson 10-12-2024 ESR (Bld) [Velocity] 46 mm/h High <=20 [facility] Immature granulocytes/100 WBC (Bld) 0.3 % 0.0-0.5 [facility] Leukocytes [#/volume] correc carmelita for nucleated erythrocytes in Blood by Automated counon 10-12-2024 WBC corrected for nucl RBC Auto (Bld) [#/Vol] Leukocytes [#/volume] corrected for nucleated erythrocytes in Blood by Automated coun 4.0-11.0 [facility] Lymphocytes Auto (Bld) [#/Vo l]on 10-12-2024 Lymphocytes (Bld) [#/Vol] Lymphocytes [#/volume] in Blood by Automated count 1.2-3.8 [facility] Lymphocytes/100 WBC Auto (Bl d)on 10-12-2024 Lymphocytes/100 WBC (Bld) Lymphocytes/100 leukocytes in Blood by Automated count 20.5-60.0 [facility] MCH Auto (RBC) [Entitic mass ]on 10-12-2024 MCH (RBC) [Entitic mass] MCH [Entitic mass] by Automated count 26.7-34.0 [facility] MCHC Auto (RBC) [Mass/Vol]on 10-12-2024 MCHC (RBC) [Mass/Vol] MCHC [Mass/volume] by Automated count 29.9-35.2 [facility] MCV Auto (RBC) [Entitic vol] on 10-12-2024 MCV (RBC) [Entitic vol] MCV [Entitic vol ume] by Automated count 81.0-99.0 [facility] Monocytes Auto (Bld) [#/Vol] on 10-12-2024 Monocytes (Bld) [#/Vol] Automated blood monocyte count 0.3-0.8 [facility] Monocytes/100 WBC Auto (Bld) on 10-12-2024 Monocytes/100 WBC (Bld) Automated monocyte % 1. 7-12.0 [facility] Neutrophils Auto (Bld) [#/Vo l]on 10-12-2024 Neutrophils (Bld) [#/Vol] Neutrophils [#/volume] in Blood by Automated count 1.4-6.5 [facility] Neutrophils/100 WBC Auto (Bl d)on 10-12-2024 Neutrophils/100 WBC (Bld) Automated neutrophil % 43.0-75.0 [facility] No Panel Informationon 10-12 C-Reactive Protein, Quantitative 1.07 mg/dL High <=0.50 [facility] Eosinophils # (Auto) 0.2 10 3/uL 0.0-0.7 [facility] Immature Granulocyte # (Auto) 0.03 10 3/uL 0.00-0.03 [facility] Platelet mean volume Auto (B ld) [Entitic vol]on 10-12-2024 Platelet mean volume (Bld) [Entitic vol] Platelet mean volume [Entitic volume] in Blood by Automated count Low 9.5-13.5 [facility] Platelets Auto (Bld) [#/Vol] on 10-12-2024 Platelets (Bld) [#/Vol] Platelets [#/vol ume] in Blood by Automated count 150-450 [facility] RBC Auto (Bld) [#/Vol]on RBC (Bld) [#/Vol] Erythrocytes [#/volu me] in Blood by Automated count 4.20-5.40 [facility] Serum or plasma anion gap de terminationon 10-12-2024 Anion gap [Moles/Vol] Serum or plasma an ion gap determination [facility] Influenza virus B Ag [Presen ce] in Upper respiratory specimen by Rapid immunoassayon 09-27-2024 FLUBV Ag IA.rapid Ql (Nph) Influenza virus B Ag [Presence] in Upper respiratory specimen by Rapid immunoassay [facility] No Panel Informationon 09-27 Influenza Type A (Rapid) Negative [facility] POC SARS CoV-2 Antigen Negative [facility] Iron binding capacity [Mass/ volume] in Serum or Plasmaon 08-24-2024 Iron binding capacity [Mass/Vol] Iron binding capacity [Mass/volume] in Serum or Plasma 250.0-450. 0 [facility] Iron saturation [Mass Fracti on] in Serum or Plasmaon 08-24-2024 Iron saturation [Mass fraction] Iron saturation [Mass Fraction] in Serum or Plasma [facility] Laboratory - Chemistry and C hemistry - challengeon 08-24-2024 Iron [Mass/Vol] 81.0 ug/dL 50.0-170.0 [facility] Measles virus IgG Ab [Units/ volume] in Serum by Immunoassayon 08-24-2024 MeV IgG IA Qn (S) Measles virus IgG Ab [Units/volume] in Serum by Immunoassay Immune >16.4 [facility] Comment on above: Negative <13.5 Equiv ocal 13.5 - 16.4 Positive >16.4Presence of antibodies to Rubeola is presumptive evidenceof immunity except when acute infection is suspected. No Panel Informationon 08-24 Rubella IgG Antibody <0.90 index Abnormal Immune >0.99 [facility] Comment on above: Non-immune <0.90 Equ ivocal 0.90 - 0.99 Immune >0.99 Serum mumps virus IgG antibo dy assay (units/volume)on 08-24-2024 MuV IgG Qn (S) Serum mumps virus Ig G antibody assay (units/volume) Abnormal Immune >10.9 [facility] Comment on above: Negative <9.0 Equivo heike 9.0 - 10.9 Positive >10.9A positive result generally indicates past exposure toMumps virus or previous vaccination.Performed at: [facility] [employer] [id number] Director: Cassius Zhong PhD, Phone: [phone] Pathology study report docum entOrdered By: Thaddeus Shah on 08-20-2024 Pathology study [facility] Other HCG ( test) IA.rapi d Ql (U)Ordered By: Hilaria Burgos on 08-19-2024 HCG ( test) Ql (U) Urine human chorionic gonadotropin (hCG) detection by immunoassay [facility] HCG,Urineon 08-19-2024 Beta HCG ( test) Ql (U) Negative Normal [facility] Comment on above: Result Comment: PERF ORMED BY: [place] [id number] PATHOLOGIST SALES RECEPTIONIST RYLAN BENEDICT M.D. Performed By: #### U HCG #### [address] 08-19-2024 L --- Specimen: [id number] Received: 08/19/24 Status: ARLINE Salter Num: [id number] Spec Type: Surgical Subm Dr: Hilaria Burgos DO Tissues: A Small Intestine - Biopsy/Polyp (SM BOWEL BX R/O CELIAC) B GASTRIC FOR HP (GASTRIC BX R/O H PYLORI) C Esophagus Biopsy (GE JUNCTION BX / ESOPHAGITIS) Procedures: PAS - MONIQUEN, HE/6, Gross/Micro L4/3, H PYLORI Age/ Patient Sex Location Account Attending Physician Ashly Mehta 33/F [id number] Hilaria Burgos, SPEC NUM: [id number] RECD: 08/19/24 STATUS: ARLINE SALLY NUM: [id number] GRADY: 08/19/24-1003 [facility] DR: Hilaria Burgos DO ENTERED: 08/19/24 [facility] DR: ABHISHEK TYPE: Surgical DEPT: S ENTERED BY: [id number] RECV BY: [id number] ORDERED: PAS - LGRN, HE/6, Gross/Micro L4/3, [...] out H. pylori, Part C esophagitis Specimen: [id number] Received: 08/19/24 Status: ARLINE Salter Num: [id number] Spec Type: Surgical Subm Dr: Hilaria Burgos DO Tissues: A Small Intestine - Biopsy/Polyp (SM BOWEL BX R/O CELIAC) B GASTRIC FOR HP (GASTRIC BX R/O H PYLORI) C Esophagus Biopsy (GE JUNCTION BX / ESOPHAGITIS) Procedures: PAS - LGRN, HE/6, Gross/Micro L4/3, H PYLORI Patient: Ashly Mehta [id number] (Continued) Specimen: Received: 08/19/24 (Continued) Signed (signature on file) Thaddeus Shah Jr., MD 08/20/24 1417 Specimen: Received: 08/19/24 Status: ARLINE Salter Num: [id number] Spec Type: Surgical Subm Dr: Hilaria Burgos DO Tissues: A Small Intestine - Biopsy/Polyp (SM BOWEL BX R/O CELIAC) B GASTRIC FOR HP (GASTRIC BX R/O H PYLORI) C Esophagus Biopsy (GE JUNCTION BX / ESOPHAGITIS) Procedures: SHEILA KIRK, HE/6, Gross/Micro L4/3, H PYLORI Patient: Ashly Mehta [id number] (Continued) Specimen: [id number] Received: 08/19/24 (Continued) Gross Description Part A is received in formalin labeled with the patients name, date of , and small bowel BX are 2 leal-green, focally erythematous, friable, 0.3 cm each in greatest dimension tissue bits. The specimen is entirely submitted in a single cassette. (1, ns, [id number] A) Part B is received in formalin labeled with the patients name, date of , and gastric BX are 2 leal-green, focally erythematous, friable, 0.3 cm each in greatest dimension tissue bits. The specimen is entirely submitted in a single cassette. (1, ns, [id number] B) Part C is received in formalin [...] negative with a satisfactory control. CPT Codes 80103 x 3, 15050, 53288 -- (more content not included)... Normal [facility] Urine Cultureon 08-09-2024 Bacteria identified Cx Nom (U) ORGANISM: Escherichia coli (ESBL) (O:ESCCOLESBL) [place] Count >100,000 Aerobic RENATE Charge (NMIC56) -- [...] RESISTANT TO ALL B-LACTAM DRUGS. PERFORMED BY: [facility] [address] [place] [address] PATHOLOGIST SALES RECEPTIONIST RYLAN BENEDICT M.D. Normal [facility] Comment on above: Performed By: #### C UU #### [address] Urine cultureOrdered By: Keesha Marc on 08-09-2024 Bacteria identified Cx Nom (U) Abnormal [facility] Albumin [Mass/volume] in Ser um or Plasmaon 06-29-2024 Albumin [Mass/Vol] Albumin [Mass/volume ] in Serum or Plasma 2.9-4.4 [facility] Basophils Auto (Bld) [#/Vol] on 06-29-2024 Basophils (Bld) [#/Vol] Automated basoph il count 0.0-0.1 [facility] Basophils/100 WBC Auto (Bld) on 06-29-2024 Basophils/100 WBC (Bld) Automated basophil % 0. 2-2.0 [facility] Eosinophils/100 WBC Auto (Bl d)on 06-29-2024 Eosinophils/100 WBC (Bld) Automated eosinophil % 0.9-7.0 [facility] Erythrocyte distribution wid th Auto (RBC) [Ratio]on 06-29-2024 Erythrocyte distribution width (RBC) [Ratio] Erythrocyte distribution width [Ratio] by Automated count High 11.0-15.0 [facility] Hematocrit Auto (Bld) [Volum e fraction]on 06-29-2024 Hematocrit (Bld) [Volume fraction] Hematocrit [Volume Fraction] of Blood by Automated count 36.0-48.0 [facility] Hemoglobin [Mass/volume] in Bloodon 06-29-2024 Hemoglobin (Bld) [Mass/Vol] Hemoglobin [Mass/volume] in Blood 12.0-16.0 [facility] IgA [Mass/volume] in Serum o r Plasmaon 06-29-2024 IgA [Mass/Vol] IgA [Mass/volume] in Serum or Plasma 87-352 [facility] IgG [Mass/volume] in Serum o r Plasmaon 06-29-2024 IgG [Mass/Vol] IgG [Mass/volume] in Serum or Plasma [phone] [facility] IgM [Mass/volume] in Serum o r Plasmaon 06-29-2024 IgM [Mass/Vol] IgM [Mass/volume] in Serum or Plasma 26-217 [facility] Iron binding capacity [Mass/ volume] in Serum or Plasmaon 06-29-2024 Iron binding capacity [Mass/Vol] Iron binding capacity [Mass/volume] in Serum or Plasma 250.0-450. 0 [facility] Iron saturation [Mass Fracti on] in Serum or Plasmaon 06-29-2024 Iron saturation [Mass fraction] Iron saturation [Mass Fraction] in Serum or Plasma [facility] Laboratory - Chemistry and C hemistry - challengeon 06-29-2024 Cobalamin (Vitamin B12) [Mass/Vol] 647 pg/mL [phone] [facility] Comment on above: Performed at: [address] [id number] Director: Cassius Zhong PhD, Phone: [phone] Ferritin [Mass/Vol] 43.0 ng/mL 8.0-252.0 [facility] Iron [Mass/Vol] 50.0 ug/dL 50.0-170.0 [facility] LDH [Catalytic activity/Vol] 202 U/L 81-234 [facility] Laboratory - Hematology and Cell countson 06-29-2024 ESR (Bld) [Velocity] 41 mm/h High <=20 [facility] Immature granulocytes/100 WBC (Bld) 0.3 % 0.0-0.5 [facility] Leukocytes [#/volume] correc carmelita for nucleated erythrocytes in Blood by Automated counon 06-29-2024 WBC corrected for nucl RBC Auto (Bld) [#/Vol] Leukocytes [#/volume] corrected for nucleated erythrocytes in Blood by Automated coun High 4.0-11.0 [facility] Lymphocytes Auto (Bld) [#/Vo l]on 06-29-2024 Lymphocytes (Bld) [#/Vol] Lymphocytes [#/volume] in Blood by Automated count 1.2-3.8 [facility] Lymphocytes/100 WBC Auto (Bl d)on 06-29-2024 Lymphocytes/100 WBC (Bld) Lymphocytes/100 leukocytes in Blood by Automated count 20.5-60.0 [facility] MCH Auto (RBC) [Entitic mass ]on 06-29-2024 MCH (RBC) [Entitic mass] MCH [Entitic mass] by Automated count 26.7-34.0 [facility] MCHC Auto (RBC) [Mass/Vol]on 06-29-2024 MCHC (RBC) [Mass/Vol] MCHC [Mass/volume] by Automated count 29.9-35.2 [facility] MCV Auto (RBC) [Entitic vol] on 06-29-2024 MCV (RBC) [Entitic vol] MCV [Entitic vol ume] by Automated count 81.0-99.0 [facility] Monocytes Auto (Bld) [#/Vol] on 06-29-2024 Monocytes (Bld) [#/Vol] Automated blood monocyte count 0.3-0.8 [facility] Monocytes/100 WBC Auto (Bld) on 06-29-2024 Monocytes/100 WBC (Bld) Automated monocyte % 1. 7-12.0 [facility] Neutrophils Auto (Bld) [#/Vo l]on 06-29-2024 Neutrophils (Bld) [#/Vol] Neutrophils [#/volume] in Blood by Automated count High 1.4-6.5 [facility] Neutrophils/100 WBC Auto (Bl d)on 06-29-2024 Neutrophils/100 WBC (Bld) Automated neutrophil % 43.0-75.0 [facility] No Panel Informationon 06-29 C-Reactive Protein, Quantitative 0.74 mg/dL High <=0.50 [facility] Eosinophils # (Auto) 0.2 10 3/uL 0.0-0.7 [facility] Immature Granulocyte # (Auto) 0.03 10 3/uL 0.00-0.03 [facility] Protein Electrophoresis M-Manpreet Not Observed g/dL Not Observed [facility] Protein Electrophoresis Note Comment . [facility] Comment on above: Protein electrophore sis scan will follow via computer,mail, or cuff folder delivery.Performed at: [address] [id number] Director: Cassius Zhong PhD, Phone: [phone] Platelet mean volume Auto (B ld) [Entitic vol]on 06-29-2024 Platelet mean volume (Bld) [Entitic vol] Platelet mean volume [Entitic volume] in Blood by Automated count 9.5-13.5 [facility] Platelets Auto (Bld) [#/Vol] on 06-29-2024 Platelets (Bld) [#/Vol] Platelets [#/vol ume] in Blood by Automated count 150-450 [facility] Protein [Mass/volume] in Ser um or Plasmaon 06-29-2024 Protein [Mass/Vol] Protein [Mass/volume ] in Serum or Plasma 6.0-8.5 [facility] RBC Auto (Bld) [#/Vol]on RBC (Bld) [#/Vol] Erythrocytes [#/volu me] in Blood by Automated count 4.20-5.40 [facility] Serum globulin measurement ( mass/volume)on 06-29-2024 Globulin (S) [Mass/Vol] Serum globulin measurement (mass/volume) 2.2-3.9 [facility] Serum or plasma albumin/glob ulin mass ratioon 06-29-2024 Albumin/Globulin [Mass ratio] Serum or plasma albumin/globulin mass ratio 0.7-1.7 [facility] Serum or plasma alpha 1 glob ulin measurement by electrophoresis (mass/volume)on 06-29-2024 Alpha 1 globulin Elph [Mass/Vol] Serum or plasma alpha 1 globulin measurement by electrophoresis (mass/volume) 0.0-0.4 [facility] Serum or plasma alpha 2 glob ulin measurement by electrophoresis (mass/volume)on 06-29-2024 Alpha 2 globulin Elph [Mass/Vol] Serum or plasma alpha 2 globulin measurement by electrophoresis (mass/volume) 0.4-1.0 [facility] Serum or plasma beta globuli n measurement by electrophoresis (mass/volume)on 06-29-2024 Beta globulin Elph [Mass/Vol] Serum or plasma beta globulin measurement by electrophoresis (mass/volume) 0.7-1.3 [facility] Serum or plasma gamma globul in measurement by electrophoresis (mass/volume)on 06-29-2024 Gamma globulin Elph [Mass/Vol] Serum or plasma gamma globulin measurement by electrophoresis (mass/volume) 0.4-1.8 [facility] Serum or plasma immunoelectr ophoresis interpretationon 06-29-2024 Interpretation IEP [Interp] Serum or plasma immunoelectrophoresis interpretation . [facility] Comment on above: No monoclonality det ected. Laboratory - Chemistry and C hemistry - challengeon 06-25-2024 Bilirubin Ql (U) 0 [facility] Glucose (U) [Mass/Vol] 0 mg/dL [facility] Ketones Ql (U) 0 [facility] pH (U) 5.0 [pH] [facility] Specific gravity (U) [Rel density] 1.020 [facility] Urobilinogen (U) [Mass/Vol] 0.2 mg/dL [facility] Laboratory - Specimen inform ationon 06-25-2024 Appearance (U) cloudy [facility] Color (U) yellow [facility] Laboratory - Urinalysison Leukocyte esterase Test strip Ql (U) 0 [facility] Nitrite Ql (U) Negative [facility] Protein Ql (U) Trace [facility] No Panel Informationon 06-25 Urine Occult Blood [address] [facility] Urine Cultureon 06-25-2024 Bacteria identified Cx Nom (U) 30,000 colonies/ml mixed bacterial skin contaminants 2 Days PERFORMED BY: [address] [place] [address] PATHOLOGIST SALES RECEPTIONIST NESHA MAIER M.D. Normal [facility] Comment on above: Performed By: #### C UU #### [address] Urine cultureOrdered By: Keesha Marc on 06-25-2024 Bacteria identified Cx Nom (U) Urine culture [facility] Basophils Auto (Bld) [#/Vol] on 06-15-2024 Basophils (Bld) [#/Vol] 0.1 10 3/uL 0.0-0.1 [facility] Basophils (Bld) [#/Vol] Automated basoph il count 0.0-0.1 [facility] Basophils/100 WBC Auto (Bld) on 06-15-2024 Basophils/100 WBC (Bld) 0.7 % 0.2-2.0 F [facility] Basophils/100 WBC (Bld) Automated basophil % 0. 2-2.0 [facility] Chlamydia trachomatis DNA [P resence] in Specimen by SURI with probe detectionOrdered By: Casandra Hassan on 06-15-2024 C. trachomatis DNA SURI+probe Ql (Unsp spec) Negative Negative [facility] C. trachomatis DNA SURI+probe Ql (Unsp spec) Chlamydia trachomatis DNA [Presence] in Specimen by SURI with probe detection Negative [facility] Chlamydia/GC/Trich NAAon Chlamydia Trachomotis, SURI Negative Normal Negative [facility] Comment on above: Performed By: #### C UU #### [address] #### GCCHLAMTRI #### [facility] , Neisseria Gonorrhoeae, SURI Negative Normal Negative [facility] Comment on above: Performed By: #### C UU #### [address] #### GCCHLAMTRI #### [facility] , Trichomonas SURI Negative Normal Negative [facility] Comment on above: Result Comment: Perf ormed at: =G - [facility] [address] [id number] Evaluation Assistant: Monse Cardona MD, Phone: [phone] PERFORMED BY: [address] [address] PATHOLOGIST SALES RECEPTIONIST NESHA MAIER M.D. Performed By: #### C UU #### [facility] [address] #### GCCHLAMTRI #### [facility] , Eosinophils/100 WBC Auto (Bl d)on 06-15-2024 Eosinophils/100 WBC (Bld) 1.1 % 0.9-7.0 [facility] Eosinophils/100 WBC (Bld) Automated eosinophil % 0.9-7.0 [facility] Erythrocyte distribution wid th Auto (RBC) [Ratio]on 06-15-2024 Erythrocyte distribution width (RBC) [Ratio] 16.4 % High 11.0-15.0 [facility] Erythrocyte distribution width (RBC) [Ratio] Erythrocyte distribution width [Ratio] by Automated count High 11.0-15.0 [facility] Estimated glomerular filtrat ion rate (GFR) non- Americanon 06-15-2024 GFR/1.73 sq M.predicted among non-blacks MDRD (S/P/Bld) [Vol rate/Area] mL/min/{1.73_m2} >=60 mL/min/1.7 3m 2 [facility] GFR/1.73 sq M.predicted among non-blacks MDRD (S/P/Bld) [Vol rate/Area] Estimated glomerular filtration rate (GFR) non- >=60 mL/min/1.7 3m 2 [facility] Globulin Calc (S) [Mass/Vol] on 06-15-2024 Globulin (S) [Mass/Vol] 4.1 g/dL F [facility] Globulin (S) [Mass/Vol] Serum globulin measurement by calculation (mass/volume) [facility] HCG ( test) IA.rapi d Ql (U)on 06-15-2024 HCG ( test) Ql (U) Negative NEGATIVE [facility] HCG ( test) Ql (U) Urine human chorionic gonadotropin (hCG) detection by immunoassay NEGATIVE [facility] Hematocrit Auto (Bld) [Volum e fraction]on 06-15-2024 Hematocrit (Bld) [Volume fraction] 42.5 % 36.0-48.0 [facility] Hematocrit (Bld) [Volume fraction] Hematocrit [Volume Fraction] of Blood by Automated count 36.0-48.0 [facility] Hemoglobin [Mass/volume] in Bloodon 06-15-2024 Hemoglobin (Bld) [Mass/Vol] 13.6 g/dL 12.0-16.0 [facility] Hemoglobin (Bld) [Mass/Vol] Hemoglobin [Mass/volume] in Blood 12.0-16.0 [facility] Laboratory - Chemistry and C hemistry - challengeon 06-15-2024 Bilirubin Ql (U) Negative NEGATIVE [facility] Glucose (U) [Mass/Vol] Negative NEGATIVE [facility] Ketones Ql (U) Negative NEGATIVE [facility] pH (U) 6.0 [pH] 5.0-9.0 [facility] Specific gravity (U) [Rel density] 1.025 1.005-1.02 5 [facility] Urobilinogen Qn (U) 0.2 {Tamiko'U}/dL 0.2-1.0 [facility] Albumin [Mass/Vol] 3.6 g/dL 3.4-5.[address] [facility] ALP [Catalytic activity/Vol] 76 U/L 46-116 [facility] ALT [Catalytic activity/Vol] 46 U/L 14-59 [facility] AST [Catalytic activity/Vol] 29 U/L 15-37 [facility] Bilirubin [Mass/Vol] 0.4 mg/dL 0.2-1.0 [facility] Calcium [Mass/Vol] 9.5 mg/dL 8.5-10.[address] [facility] Chloride [Moles/Vol] 103 mmol/L 98-107 [facility] CO2 [Moles/Vol] 26.4 mmol/L 21.0-32.0 [facility] Creatinine [Mass/Vol] 0.83 mg/dL 0.55-1.02 [facility] GFR/1.73 sq M.predicted MDRD (S/P/Bld) [Vol rate/Area] mL/min/{1.73_m2} >=60 mL/min/1.7 3m 2 [facility] Glucose [Mass/Vol] 102 mg/dL 74-[address] [facility] Lactate [Moles/Vol] 1.9 mmol/L 0.4-2.0 [facility] Lipase [Catalytic activity/Vol] 32.0 U/L 16.0-77.0 [facility] Potassium [Moles/Vol] 3.9 mmol/L 3.5-5.1 [facility] Protein [Mass/Vol] 7.7 g/dL 6.4-8.[address] [facility] Sodium [Moles/Vol] 139 mmol/L 136-[address] [facility] Urea nitrogen [Mass/Vol] 9.0 mg/dL 7.0-18.0 [facility] Urea nitrogen/Creatinine [Mass ratio] 10.8 mg/mg [facility] Laboratory - Hematology and Cell countson 06-15-2024 Immature granulocytes/100 WBC (Bld) 0.2 % 0.0-0.5 [facility] Laboratory - Microbiology an d Antimicrobial susceptibilityOrdered By: Casandra Hassan on 06-15-2024 Bacteria identified Cx Nom (U) Escherichia coli (ESBL) Abnormal [facility] Laboratory - Specimen inform ationon 06-15-2024 Appearance (U) CLEAR CLEAR [facility] Color (U) LT. YELLOW YELLOW [facility] Laboratory - Urinalysison Leukocyte esterase Test strip Ql (U) TRACE Abnormal NEGATIVE [facility] Mucus Ql (Urine sed) TRACE Abnormal NONE SEEN [facility] Nitrite Ql (U) Positive Abnormal NEGATIVE [facility] Protein Ql (U) >=300 mg/dL Abnormal NEG/TRACE [facility] Leukocytes [#/volume] correc carmelita for nucleated erythrocytes in Blood by Automated counon 06-15-2024 WBC corrected for nucl RBC Auto (Bld) [#/Vol] 12.7 10 3/uL High 4.0-11.0 [facility] WBC corrected for nucl RBC Auto (Bld) [#/Vol] Leukocytes [#/volume] corrected for nucleated erythrocytes in Blood by Automated coun High 4.0-11.0 [facility] Lymphocytes Auto (Bld) [#/Vo l]on 06-15-2024 Lymphocytes (Bld) [#/Vol] 2.9 10 3/uL 1.2-3.8 [facility] Lymphocytes (Bld) [#/Vol] Lymphocytes [#/volume] in Blood by Automated count 1.2-3.8 [facility] Lymphocytes/100 WBC Auto (Bl d)on 06-15-2024 Lymphocytes/100 WBC (Bld) 23.0 % 20.5-60.0 [facility] Lymphocytes/100 WBC (Bld) Lymphocytes/100 leukocytes in Blood by Automated count 20.5-60.0 [facility] MCH Auto (RBC) [Entitic mass ]on 06-15-2024 MCH (RBC) [Entitic mass] 26.7 pg 26.7-34.0 [facility] MCH (RBC) [Entitic mass] MCH [Entitic mass] by Automated count 26.7-34.0 [facility] MCHC Auto (RBC) [Mass/Vol]on 06-15-2024 MCHC (RBC) [Mass/Vol] 32.0 g/dL 29.9-35.2 [facility] MCHC (RBC) [Mass/Vol] MCHC [Mass/volume] by Automated count 29.9-35.2 [facility] MCV Auto (RBC) [Entitic vol] on 06-15-2024 MCV (RBC) [Entitic vol] 83.5 fL 81.0-99.0 F [facility] MCV (RBC) [Entitic vol] MCV [Entitic vol ume] by Automated count 81.0-99.0 [facility] Monocytes Auto (Bld) [#/Vol] on 06-15-2024 Monocytes (Bld) [#/Vol] 0.6 10 3/uL 0.3-0.8 [facility] Monocytes (Bld) [#/Vol] Automated blood monocyte count 0.3-0.8 [facility] Monocytes/100 WBC Auto (Bld) on 06-15-2024 Monocytes/100 WBC (Bld) 4.9 % 1.7-12.0 F [facility] Monocytes/100 WBC (Bld) Automated monocyte % 1. 7-12.0 [facility] Neisseria gonorrhoeae DNA [P resence] in Specimen by SURI with probe detectionOrdered By: Casandra Hassan on 06-15-2024 N. gonorrhoeae DNA SURI+probe Ql (Unsp spec) Negative Negative [facility] N. gonorrhoeae DNA SURI+probe Ql (Unsp spec) Neisseria gonorrhoeae DNA [Presence] in Specimen by SURI with probe detection Negative [facility] Neutrophils Auto (Bld) [#/Vo l]on 06-15-2024 Neutrophils (Bld) [#/Vol] 8.9 10 3/uL High 1.4-6.5 [facility] Neutrophils (Bld) [#/Vol] Neutrophils [#/volume] in Blood by Automated count High 1.4-6.5 [facility] Neutrophils/100 WBC Auto (Bl d)on 06-15-2024 Neutrophils/100 WBC (Bld) 70.1 % 43.0-75.0 [facility] Neutrophils/100 WBC (Bld) Automated neutrophil % 43.0-75.0 [facility] No Panel Informationon 06-15 Miscellaneous Test Comment See comment [facility] Comment on above: Specimen Source: UCC - Urine,Clean Catch - Urine CC - 200.100 Urine Bacteria SMALL #/HPF Abnormal NONE SEEN [facility] Urine Culture Reflexed YES [facility] Urine Culture Result 1 \R\ Urine Culture , Routine\R\ Organism: Gram negative jus : [facility] Urine Microscopic Review YES [facility] Urine Occult Blood MODERATE Abnormal NEGATIVE [facility] Urine Other Casts NONE SEEN #/LPF NONE SEEN [facility] Urine Other Crystals None Seen #/HPF None Seen [facility] Urine RBC 10-20 #/HPF Abnormal 0-2 [facility] Urine Squamous Epithelial Cells FEW #/LPF Abnormal NONE/RARE [facility] Urine WBC 20-50 #/HPF Abnormal NONE SEEN [facility] Eosinophils # (Auto) 0.1 10 3/uL 0.0-0.7 [facility] Immature Granulocyte # (Auto) 0.03 10 3/uL 0.00-0.03 [facility] Platelet mean volume Auto (B ld) [Entitic vol]on 06-15-2024 Platelet mean volume (Bld) [Entitic vol] 10.0 fL 9.5-13.5 [facility] Platelet mean volume (Bld) [Entitic vol] Platelet mean volume [Entitic volume] in Blood by Automated count 9.5-13.5 [facility] Platelets Auto (Bld) [#/Vol] on 06-15-2024 Platelets (Bld) [#/Vol] 308 10 3/uL 150-450 [facility] Platelets (Bld) [#/Vol] Platelets [#/vol ume] in Blood by Automated count 150-450 [facility] RBC Auto (Bld) [#/Vol]on RBC (Bld) [#/Vol] 5.09 10 6/uL 4.20-5.40 [facility] RBC (Bld) [#/Vol] Erythrocytes [#/volu me] in Blood by Automated count 4.20-5.40 [facility] Serum or plasma albumin/glob ulin mass ratioon 06-15-2024 Albumin/Globulin [Mass ratio] 0.9 {ratio} [facility] Albumin/Globulin [Mass ratio] Serum or plasma albumin/globulin mass ratio [facility] Serum or plasma anion gap de terminationon 06-15-2024 Anion gap [Moles/Vol] 13.5 mmol/L [facility] Anion gap [Moles/Vol] Serum or plasma an ion gap determination [facility] Trichomonas vaginalis DNA [P resence] in Specimen by SURI with probe detectionOrdered By: Casandra Hassan on 06-15-2024 T. vaginalis DNA SURI+probe Ql (Unsp spec) Negative Negative [facility] Comment on above: Performed at: =[facility] [id number] [place] [id number] Director: Monse Cardona MD, Phone: [phone] T. vaginalis DNA SURI+probe Ql (Unsp spec) Trichomonas vaginalis DNA [Presence] in Specimen by SURI with probe detection Negative [facility] Comment on above: Performed at: =G - L [address], [place] [id number] Director: Monse Cardona MD, Phone: [phone] Urine Cultureon 06-15-2024 Bacteria identified Cx Nom (U) ORGANISM: Escherichia coli (ESBL) (O:ESCCOLESBL) [place] Count >100,000 Aerobic RENATE Charge ([id number]) -- [...] RESISTANT TO ALL B-LACTAM DRUGS. PERFORMED BY: [place] [address] PATHOLOGIST SALES RECEPTIONIST NESHA MAIER M.D. Normal [facility] Comment on above: Performed By: #### C UU #### [address] #### GCCHLAMTRI #### [facility] , Urine cultureOrdered By: Eulalio Hassan on 06-15-2024 Bacteria identified Cx Nom (U) Abnormal [facility] Iron binding capacity [Mass/ volume] in Serum or Plasmaon 06-07-2024 Iron binding capacity [Mass/Vol] 411.0 ug/dL 250.0-450. 0 [facility] Iron binding capacity [Mass/Vol] Iron binding capacity [Mass/volume] in Serum or Plasma 250.0-450. 0 [facility] Iron saturation [Mass Fracti on] in Serum or Plasmaon 06-07-2024 Iron saturation [Mass fraction] 13.4 % [facility] Iron saturation [Mass fraction] Iron saturation [Mass Fraction] in Serum or Plasma [facility] Laboratory - Chemistry and C hemistry - challengeon 06-07-2024 Iron [Mass/Vol] 55.0 ug/dL 50.0-170.0 [facility] Iron binding capacity [Mass/ volume] in Serum or Plasmaon 04-21-2024 Iron binding capacity [Mass/Vol] 495.0 ug/dL High 250.0-450. 0 [facility] Iron binding capacity [Mass/Vol] Iron binding capacity [Mass/volume] in Serum or Plasma High 250.0-450. 0 [facility] Iron saturation [Mass Fracti on] in Serum or Plasmaon 04-21-2024 Iron saturation [Mass fraction] 15.4 % [facility] Iron saturation [Mass fraction] Iron saturation [Mass Fraction] in Serum or Plasma [facility] Laboratory - Chemistry and C hemistry - challengeon 04-21-2024 Cobalamin (Vitamin B12) [Mass/Vol] 815 pg/mL [id number] [facility] Comment on above: Performed at: [place] [id number] Director: Cassius Zhong PhD, Phone: [phone] Iron [Mass/Vol] 76.0 ug/dL 50.0-170.0 [facility] TSH Qn 2.211 m[IU]/L 0.358-3.74 0 [facility] Basophils Auto (Bld) [#/Vol] on 04-12-2024 Basophils (Bld) [#/Vol] 0.1 10 3/uL 0.0-0.1 [facility] Basophils (Bld) [#/Vol] Automated basoph il count 0.0-0.1 [facility] Basophils/100 WBC Auto (Bld) on 04-12-2024 Basophils/100 WBC (Bld) 0.6 % 0.2-2.0 F [facility] Basophils/100 WBC (Bld) Automated basophil % 0. 2-2.0 [facility] Buprenorphine [Presence] in Urineon 04-12-2024 Buprenorphine Ql (U) Negative NEGATIVE [facility] Comment on above: DRUG CLASS TEST SYST EM CUT-OFF CONCENTRATIONS ARE ASFOLLOWS:AMP (Amphetamine): 500 ng/mLBAR (Barbiturates): 200 ng/mLBZO (Benzodiazepines): 150 ng/mLBUP (Buprenorphine): 10 ng/mLCOC (Cocaine): 150 ng/mLmAMP (Methamphetamine): 500 ng/mLMTD (Methadone): 200 ng/mLOPI (Opiates): 100 ng/mLOXY (Oxycodone): 100 ng/mLPCP (Phencyclidine): 25 ng/mLTHC (Cannabinoids): 50 ng/mLTCA (Trycyclic Antidepressants): 300 ng/mL Buprenorphine Ql (U) Buprenorphine [Presence] in Urine NEGATIVE [facility] Comment on above: DRUG CLASS TEST SYST EM CUT-OFF CONCENTRATIONS ARE ASFOLLOWS:AMP (Amphetamine): 500 ng/mLBAR (Barbiturates): 200 ng/mLBZO (Benzodiazepines): 150 ng/mLBUP (Buprenorphine): 10 ng/mLCOC (Cocaine): 150 ng/mLmAMP (Methamphetamine): 500 ng/mLMTD (Methadone): 200 ng/mLOPI (Opiates): 100 ng/mLOXY (Oxycodone): 100 ng/mLPCP (Phencyclidine): 25 ng/mLTHC (Cannabinoids): 50 ng/mLTCA (Trycyclic Antidepressants): 300 ng/mL Eosinophils/100 WBC Auto (Bl d)on 04-12-2024 Eosinophils/100 WBC (Bld) 1.0 % 0.9-7.0 [facility] Eosinophils/100 WBC (Bld) Automated eosinophil % 0.9-7.0 [facility] Erythrocyte distribution wid th Auto (RBC) [Ratio]on 04-12-2024 Erythrocyte distribution width (RBC) [Ratio] 17.4 % High 11.0-15.0 [facility] Erythrocyte distribution width (RBC) [Ratio] Erythrocyte distribution width [Ratio] by Automated count High 11.0-15.0 [facility] Estimated glomerular filtrat ion rate (GFR) non- Americanon 04-12-2024 GFR/1.73 sq M.predicted among non-blacks MDRD (S/P/Bld) [Vol rate/Area] mL/min/{1.73_m2} >=60 [facility] GFR/1.73 sq M.predicted among non-blacks MDRD (S/P/Bld) [Vol rate/Area] Estimated glomerular filtration rate (GFR) non- >=60 [facility] Globulin Calc (S) [Mass/Vol] on 04-12-2024 Globulin (S) [Mass/Vol] 4.1 g/dL F [facility] Globulin (S) [Mass/Vol] Serum globulin measurement by calculation (mass/volume) [facility] HCG ( test) IAcamden d Ql (U)on 04-12-2024 HCG ( test) Ql (U) Negative NEGATIVE [facility] HCG ( test) Ql (U) Urine human chorionic gonadotropin (hCG) detection by immunoassay NEGATIVE [facility] Hematocrit Auto (Bld) [Volum e fraction]on 04-12-2024 Hematocrit (Bld) [Volume fraction] 37.9 % 36.0-48.0 [facility] Hematocrit (Bld) [Volume fraction] Hematocrit [Volume Fraction] of Blood by Automated count 36.0-48.0 [facility] Hemoglobin [Mass/volume] in Bloodon 04-12-2024 Hemoglobin (Bld) [Mass/Vol] 11.6 g/dL Low 12.0-16.0 [facility] Hemoglobin (Bld) [Mass/Vol] Hemoglobin [Mass/volume] in Blood Low 12.0-16.0 [facility] Laboratory - Chemistry and C hemistry - challengeon 04-12-2024 Albumin [Mass/Vol] 3.3 g/dL Low 3.4-5.[address] [facility] ALP [Catalytic activity/Vol] 75 U/L 46-116 [facility] ALT [Catalytic activity/Vol] 36 U/L 14-59 [facility] AST [Catalytic activity/Vol] 19 U/L 15-37 [facility] Bilirubin [Mass/Vol] 0.3 mg/dL 0.2-1.0 [facility] Calcium [Mass/Vol] 8.6 mg/dL 8.5-10.[address] [facility] Chloride [Moles/Vol] 101 mmol/L 98-107 [facility] CO2 [Moles/Vol] 28.7 mmol/L 21.0-32.0 [facility] Creatinine [Mass/Vol] 0.70 mg/dL 0.55-1.02 [facility] GFR/1.73 sq M.predicted MDRD (S/P/Bld) [Vol rate/Area] mL/min/{1.73_m2} >=60 [facility] Glucose [Mass/Vol] 103 mg/dL 74-[address] [facility] Potassium [Moles/Vol] 3.7 mmol/L 3.5-5.1 [facility] Protein [Mass/Vol] 7.4 g/dL 6.4-8.[address] [facility] Sodium [Moles/Vol] 136 mmol/L 136-[address] [facility] Urea nitrogen [Mass/Vol] 10.0 mg/dL 7.0-18.0 [facility] Urea nitrogen/Creatinine [Mass ratio] 14.3 mg/mg [facility] Bilirubin Ql (U) Negative NEGATIVE [facility] Glucose (U) [Mass/Vol] Negative NEGATIVE Fi [facility] Ketones Ql (U) Negative NEGATIVE [facility] pH (U) 6.0 [pH] 5.0-9.0 [facility] Specific gravity (U) [Rel density] >=1.030 Abnormal 1.005-1.02 5 [facility] Urobilinogen Qn (U) 0.2 {Tamiko'U}/dL 0.2-1.0 [facility] Laboratory - Drug toxicology on 04-12-2024 Amphetamines Ql (U) Negative NEGATIVE [facility] Benzodiazepines Ql (U) Negative NEGATIVE Fi [facility] Cocaine Ql (U) Negative NEGATIVE [facility] Opiates Ql (U) Negative NEGATIVE [facility] Phencyclidine Ql (U) Negative NEGATIVE [facility] Laboratory - Hematology and Cell countson 04-12-2024 Immature granulocytes/100 WBC (Bld) 0.3 % 0.0-0.5 [facility] Laboratory - Specimen inform ationon 04-12-2024 Appearance (U) CLEAR CLEAR [facility] Color (U) YELLOW YELLOW [facility] Laboratory - Urinalysison Leukocyte esterase Test strip Ql (U) Negative NEGATIVE [facility] Mucus Ql (Urine sed) TRACE Abnormal NONE SEEN [facility] Nitrite Ql (U) Negative NEGATIVE [facility] Protein Ql (U) Negative NEG/TRACE [facility] Leukocytes [#/volume] correc carmelita for nucleated erythrocytes in Blood by Automated counon 04-12-2024 WBC corrected for nucl RBC Auto (Bld) [#/Vol] 9.9 10 3/uL 4.0-11.0 [facility] WBC corrected for nucl RBC Auto (Bld) [#/Vol] Leukocytes [#/volume] corrected for nucleated erythrocytes in Blood by Automated coun 4.0-11.0 [facility] Lymphocytes Auto (Bld) [#/Vo l]on 04-12-2024 Lymphocytes (Bld) [#/Vol] 3.5 10 3/uL 1.2-3.8 [facility] Lymphocytes (Bld) [#/Vol] Lymphocytes [#/volume] in Blood by Automated count 1.2-3.8 [facility] Lymphocytes/100 WBC Auto (Bl d)on 04-12-2024 Lymphocytes/100 WBC (Bld) 35.5 % 20.5-60.0 [facility] Lymphocytes/100 WBC (Bld) Lymphocytes/100 leukocytes in Blood by Automated count 20.5-60.0 [facility] MCH Auto (RBC) [Entitic mass ]on 04-12-2024 MCH (RBC) [Entitic mass] 24.5 pg Low 26.7-34.0 [facility] MCH (RBC) [Entitic mass] MCH [Entitic mass] by Automated count Low 26.7-34.0 [facility] MCHC Auto (RBC) [Mass/Vol]on 04-12-2024 MCHC (RBC) [Mass/Vol] 30.6 g/dL 29.9-35.2 [facility] MCHC (RBC) [Mass/Vol] MCHC [Mass/volume] by Automated count 29.9-35.2 [facility] MCV Auto (RBC) [Entitic vol] on 04-12-2024 MCV (RBC) [Entitic vol] 80.1 fL Low 81.0-99.0 F [facility] MCV (RBC) [Entitic vol] MCV [Entitic vol ume] by Automated count Low 81.0-99.0 [facility] Methadone [Presence] in Urin e by Screen methodon 04-12-2024 Methadone Screen Ql (U) Negative NEGATIVE F [facility] Methadone Screen Ql (U) Methadone [Prese nce] in Urine by Screen method NEGATIVE [facility] Monocytes Auto (Bld) [#/Vol] on 04-12-2024 Monocytes (Bld) [#/Vol] 0.5 10 3/uL 0.3-0.8 [facility] Monocytes (Bld) [#/Vol] Automated blood monocyte count 0.3-0.8 [facility] Monocytes/100 WBC Auto (Bld) on 04-12-2024 Monocytes/100 WBC (Bld) 4.7 % 1.7-12.0 [facility] Monocytes/100 WBC (Bld) Automated monocyte % 1. 7-12.0 [facility] Neutrophils Auto (Bld) [#/Vo l]on 04-12-2024 Neutrophils (Bld) [#/Vol] 5.7 10 3/uL 1.4-6.5 [facility] Neutrophils (Bld) [#/Vol] Neutrophils [#/volume] in Blood by Automated count 1.4-6.5 [facility] Neutrophils/100 WBC Auto (Bl d)on 04-12-2024 Neutrophils/100 WBC (Bld) 57.9 % 43.0-75.0 [facility] Neutrophils/100 WBC (Bld) Automated neutrophil % 43.0-75.0 [facility] No Panel Informationon 04-12 Acetaminophen Level <2.0 ug/mL Low 10.0-30.0 [facility] Eosinophils # (Auto) 0.1 10 3/uL 0.0-0.7 [facility] Ethyl Alcohol Level <3 mg/dL [facility] Comment on above: NOTE: 80 mg/dl is th e legal limit for a blood alcohol level Immature Granulocyte # (Auto) 0.03 10 3/uL 0.00-0.03 [facility] Salicylates Level <2.8 mg/dL <=19.9 [facility] Urine Bacteria SMALL #/HPF Abnormal NONE SEEN [facility] Urine Barbiturates Screen Negative NEGATIVE [facility] Urine Culture Reflexed YES [facility] Urine Marijuana (THC) Screen Negative NEGATIVE [facility] Urine Methamphetamines Screen Negative NEGATIVE [facility] Urine Occult Blood Negative NEGATIVE [facility] Urine Other Casts NONE SEEN #/LPF NONE SEEN [facility] Urine Other Crystals None Seen #/HPF None Seen [facility] Urine RBC 0-2 #/HPF 0-2 [facility] Urine Squamous Epithelial Cells FEW #/LPF Abnormal NONE/RARE [facility] Urine Transitional Epithelial Cells RARE #/LPF Abnormal NONE SEEN [facility] Urine WBC 2-5 #/HPF Abnormal NONE SEEN [facility] Platelet mean volume Auto (B ld) [Entitic vol]on 04-12-2024 Platelet mean volume (Bld) [Entitic vol] 10.2 fL 9.5-13.5 [facility] Platelet mean volume (Bld) [Entitic vol] Platelet mean volume [Entitic volume] in Blood by Automated count 9.5-13.5 [facility] Platelets Auto (Bld) [#/Vol] on 04-12-2024 Platelets (Bld) [#/Vol] 299 10 3/uL 150-450 [facility] Platelets (Bld) [#/Vol] Platelets [#/vol ume] in Blood by Automated count 150-450 [facility] RBC Auto (Bld) [#/Vol]on RBC (Bld) [#/Vol] 4.73 10 6/uL 4.20-5.40 [facility] RBC (Bld) [#/Vol] Erythrocytes [#/volu me] in Blood by Automated count 4.20-5.40 [facility] Serum or plasma albumin/glob ulin mass ratioon 04-12-2024 Albumin/Globulin [Mass ratio] 0.8 {ratio} [facility] Albumin/Globulin [Mass ratio] Serum or plasma albumin/globulin mass ratio [facility] Serum or plasma anion gap de terminationon 04-12-2024 Anion gap [Moles/Vol] 10.0 mmol/L [facility] Anion gap [Moles/Vol] Serum or plasma an ion gap determination [facility] Urine tricyclic antidepressa nt measurementon 04-12-2024 Tricyclic antidepressants (U) [Mass/Vol] Negative NEGATIVE [facility] Tricyclic antidepressants (U) [Mass/Vol] Urine tricyclic antidepressant measurement NEGATIVE [facility] oxyCODONE+oxyMORphone [Prese nce] in Urine by Screen methodon 04-12-2024 oxyCODONE+oxyMORphone Screen Ql (U) Negative NEGATIVE [facility] oxyCODONE+oxyMORphone Screen Ql (U) oxyCODONE+oxyMORphone [Presence] in Urine by Screen method NEGATIVE [facility] Basophils Auto (Bld) [#/Vol] on 11-03-2023 Basophils (Bld) [#/Vol] 0.0 10 3/uL 0.0-0.1 [facility] Basophils/100 WBC Auto (Bld) on 11-03-2023 Basophils/100 WBC (Bld) 0.5 % 0.2-2.0 [facility] Eosinophils/100 WBC Auto (Bl d)on 11-03-2023 Eosinophils/100 WBC (Bld) 1.4 % 0.9-7.0 [facility] Erythrocyte distribution wid th Auto (RBC) [Ratio]on 11-03-2023 Erythrocyte distribution width (RBC) [Ratio] 16.3 % 11.0-15.0 [facility] Estimated glomerular filtrat ion rate (GFR) non- Americanon 11-03-2023 GFR/1.73 sq M.predicted among non-blacks MDRD (S/P/Bld) [Vol rate/Area] mL/min/{1.73_m2} >=60 [facility] Globulin Calc (S) [Mass/Vol] on 11-03-2023 Globulin (S) [Mass/Vol] 4.0 g/dL F [facility] Hematocrit Auto (Bld) [Volum e fraction]on 11-03-2023 Hematocrit (Bld) [Volume fraction] 26.1 % 36.0-48.0 [facility] Hemoglobin [Mass/volume] in Bloodon 11-03-2023 Hemoglobin (Bld) [Mass/Vol] 7.8 g/dL 12.0-16.0 [facility] Human papilloma virus 16+18+ 31+33+35+39+45+51+52+56+58+59+66+68 DNA [Presence] in [place] 11-03-2023 HPV 16+18+31+33+35+39+45+51 +52+56+58+59+66+68 DNA Probe+sig amp Ql (Cvx) Negative Negative [facility] Comment on above: This nucleic acid am plification test detects fourteen high-risk HPV types (16,18,31,33,35,39,45,51,52,56,58,59,66,68)without differentiation.Performed at: =[facility] [address] [id number] Director: Monse Cardona MD, Phone: [phone] at: [facility] [address] [id number] Director: Monse Cardona MD, Phone: [phone] Iron binding capacity [Mass/ volume] in Serum or Plasmaon 11-03-2023 Iron binding capacity [Mass/Vol] 512.0 ug/dL 250.0-450. 0 [facility] Iron saturation [Mass Fracti on] in Serum or Plasmaon 11-03-2023 Iron saturation [Mass fraction] 2.7 % [facility] Laboratory - Chemistry and C hemistry - challengeon 11-03-2023 Albumin [Mass/Vol] 3.1 g/dL 3.4-5.[address] [facility] ALP [Catalytic activity/Vol] 63 U/L 46-116 [facility] ALT [Catalytic activity/Vol] 29 U/L 14-59 [facility] AST [Catalytic activity/Vol] 18 U/L 15-37 [facility] Bilirubin [Mass/Vol] 0.2 mg/dL 0.2-1.0 [facility] Calcium [Mass/Vol] 8.7 mg/dL 8.5-10.[address] [facility] Chloride [Moles/Vol] 102 mmol/L 98-107 [facility] CO2 [Moles/Vol] 27.6 mmol/L 21.0-32.0 [facility] Creatinine [Mass/Vol] 0.70 mg/dL 0.55-1.02 [facility] Ferritin [Mass/Vol] 6.0 ng/mL 8.0-252.0 [facility] GFR/1.73 sq M.predicted MDRD (S/P/Bld) [Vol rate/Area] mL/min/{1.73_m2} >=60 [facility] Glucose [Mass/Vol] 103 mg/dL 74-[address] [facility] Iron [Mass/Vol] 14.0 ug/dL 50.0-170.0 [facility] Potassium [Moles/Vol] 3.8 mmol/L 3.5-5.1 [facility] Protein [Mass/Vol] 7.1 g/dL 6.4-8.[address] [facility] Sodium [Moles/Vol] 139 mmol/L 136-[address] [facility] Urea nitrogen [Mass/Vol] 11.0 mg/dL 7.0-18.0 [facility] Urea nitrogen/Creatinine [Mass ratio] 15.7 mg/mg [facility] Laboratory - Hematology and Cell countson 11-03-2023 Immature granulocytes/100 WBC (Bld) 0.4 % 0.0-0.5 [facility] Leukocytes [#/volume] correc carmelita for nucleated erythrocytes in Blood by Automated counon 11-03-2023 WBC corrected for nucl RBC Auto (Bld) [#/Vol] 7.4 10 3/uL 4.0-11.0 [facility] Lymphocytes Auto (Bld) [#/Vo l]on 11-03-2023 Lymphocytes (Bld) [#/Vol] 2.5 10 3/uL 1.2-3.8 [facility] Lymphocytes/100 WBC Auto (Bl d)on 11-03-2023 Lymphocytes/100 WBC (Bld) 33.6 % 20.5-60.0 [facility] MCH Auto (RBC) [Entitic mass ]on 11-03-2023 MCH (RBC) [Entitic mass] 24.8 pg 26.7-34.0 [facility] MCHC Auto (RBC) [Mass/Vol]on 11-03-2023 MCHC (RBC) [Mass/Vol] 29.9 g/dL 29.9-35.2 [facility] MCV Auto (RBC) [Entitic vol] on 11-03-2023 MCV (RBC) [Entitic vol] 82.9 fL 81.0-99.0 [facility] Monocytes Auto (Bld) [#/Vol] on 11-03-2023 Monocytes (Bld) [#/Vol] 0.4 10 3/uL 0.3-0.8 [facility] Monocytes/100 WBC Auto (Bld) on 11-03-2023 Monocytes/100 WBC (Bld) 5.6 % 1.7-12.0 [facility] Neutrophils Auto (Bld) [#/Vo l]on 11-03-2023 Neutrophils (Bld) [#/Vol] 4.3 10 3/uL 1.4-6.5 [facility] Neutrophils/100 WBC Auto (Bl d)on 11-03-2023 Neutrophils/100 WBC (Bld) 58.5 % 43.0-75.0 [facility] No Panel Informationon 11-02 Eosinophils # (Auto) 0.1 10 3/uL 0.0-0.7 [facility] Immature Granulocyte # (Auto) 0.03 10 3/uL 0.00-0.03 [facility] HPV High Risk Other Comment Note . [facility] Comment on above: TESTS RESULT FLAG UN ITS REF RANGE LAB -DIAGNOSIS: 02 NEGATIVE FOR INTRAEPITHELIAL LESION OR MALIGNANCY.Specimen adequacy: 02 Satisfactory for evaluation. Endocervical and/or squamous metaplastic cells (endocervical component) are present.Performed by: 02 Beverly Escalante [employer] (ASCP). 02Note: Note 02 The Pap smear [...] Low,>-Panic High,A-Abnormal,AA-Critical Abnormal ------Performed at:02 [facility] [address] [place] [id number] Monse Cardona MD, Reference Lab Test Patient Age Note . [facility] Comment on above: TESTS RESULT FLAG UN ITS REF RANGE LAB - Clinician Provided Cytology Information Source.............Cervix;Endocervix No. of containers..01 ThinPrep VialAge Leeo MARLENEOG Elise... FLAG LEGEND: L-Low Normal,H-High Normal,LL-Alert Low,HH-Alert High <-Panic Low,>-Panic High,A-Abnormal,AA-Critical Abnormal ------Performed at:01 =[facility] [address] [id number] Monse Cardona MD, Platelet mean volume Auto (B ld) [Entitic vol]on 11-03-2023 Platelet mean volume (Bld) [Entitic vol] 9.6 fL 9.5-13.5 [facility] Platelets Auto (Bld) [#/Vol] on 11-03-2023 Platelets (Bld) [#/Vol] 323 10 3/uL 150-450 [facility] RBC Auto (Bld) [#/Vol]on RBC (Bld) [#/Vol] 3.15 10 6/uL 4.20-5.40 [facility] Serum or plasma albumin/glob ulin mass ratioon 11-03-2023 Albumin/Globulin [Mass ratio] 0.8 {ratio} [facility] Serum or plasma anion gap de terminationon 11-03-2023 Anion gap [Moles/Vol] 13.2 mmol/L [facility] Basophils Auto (Bld) [#/Vol] on 10-30-2023 Basophils (Bld) [#/Vol] 0.0 10 3/uL 0.0-0.1 [facility] Basophils/100 WBC Auto (Bld) on 10-30-2023 Basophils/100 WBC (Bld) 0.6 % 0.2-2.0 [facility] Eosinophils/100 WBC Auto (Bl d)on 10-30-2023 Eosinophils/100 WBC (Bld) 1.2 % 0.9-7.0 [facility] Erythrocyte distribution wid th Auto (RBC) [Ratio]on 10-30-2023 Erythrocyte distribution width (RBC) [Ratio] 16.6 % 11.0-15.0 [facility] Estimated glomerular filtrat ion rate (GFR) non- Americanon 10-30-2023 GFR/1.73 sq M.predicted among non-blacks MDRD (S/P/Bld) [Vol rate/Area] mL/min/{1.73_m2} >=60 [facility] HCG ( test) IA.rapi d Ql (U)on 10-30-2023 HCG ( test) Ql (U) Negative NEGATIVE [facility] Hematocrit Auto (Bld) [Volum e fraction]on 10-30-2023 Hematocrit (Bld) [Volume fraction] 26.6 % 36.0-48.0 [facility] Hemoglobin [Mass/volume] in Bloodon 10-30-2023 Hemoglobin (Bld) [Mass/Vol] 7.9 g/dL 12.0-16.0 [facility] Laboratory - Chemistry and C hemistry - challengeon 10-30-2023 Calcium [Mass/Vol] 8.5 mg/dL 8.5-10.[address] [facility] Chloride [Moles/Vol] 101 mmol/L 98-107 [facility] CO2 [Moles/Vol] 28.8 mmol/L 21.0-32.0 [facility] Creatinine [Mass/Vol] 0.62 mg/dL 0.55-1.02 [facility] GFR/1.73 sq M.predicted MDRD (S/P/Bld) [Vol rate/Area] mL/min/{1.73_m2} >=60 [facility] Glucose [Mass/Vol] 104 mg/dL 74-[address] [facility] Potassium [Moles/Vol] 4.0 mmol/L 3.5-5.1 [facility] Sodium [Moles/Vol] 137 mmol/L 136-[address] [facility] Urea nitrogen [Mass/Vol] 8.0 mg/dL 7.0-18.0 [facility] Urea nitrogen/Creatinine [Mass ratio] 12.9 mg/mg [facility] Laboratory - Hematology and Cell countson 10-30-2023 Immature granulocytes/100 WBC (Bld) 0.4 % 0.0-0.5 [facility] Leukocytes [#/volume] correc carmelita for nucleated erythrocytes in Blood by Automated counon 10-30-2023 WBC corrected for nucl RBC Auto (Bld) [#/Vol] 7.3 10 3/uL 4.0-11.0 [facility] Lymphocytes Auto (Bld) [#/Vo l]on 10-30-2023 Lymphocytes (Bld) [#/Vol] 2.2 10 3/uL 1.2-3.8 [facility] Lymphocytes/100 WBC Auto (Bl d)on 10-30-2023 Lymphocytes/100 WBC (Bld) 30.2 % 20.5-60.0 [facility] MCH Auto (RBC) [Entitic mass ]on 10-30-2023 MCH (RBC) [Entitic mass] 25.0 pg 26.7-34.0 [facility] MCHC Auto (RBC) [Mass/Vol]on 10-30-2023 MCHC (RBC) [Mass/Vol] 29.7 g/dL 29.9-35.2 [facility] MCV Auto (RBC) [Entitic vol] on 10-30-2023 MCV (RBC) [Entitic vol] 84.2 fL 81.0-99.0 [facility] Monocytes Auto (Bld) [#/Vol] on 10-30-2023 Monocytes (Bld) [#/Vol] 0.3 10 3/uL 0.3-0.8 [facility] Monocytes/100 WBC Auto (Bld) on 10-30-2023 Monocytes/100 WBC (Bld) 3.7 % 1.7-12.0 [facility] Neutrophils Auto (Bld) [#/Vo l]on 10-30-2023 Neutrophils (Bld) [#/Vol] 4.6 10 3/uL 1.4-6.5 [facility] Neutrophils/100 WBC Auto (Bl d)on 10-30-2023 Neutrophils/100 WBC (Bld) 63.9 % 43.0-75.0 [facility] No Panel Informationon 10-29 Eosinophils # (Auto) 0.1 10 3/uL 0.0-0.7 [facility] Immature Granulocyte # (Auto) 0.03 10 3/uL 0.00-0.03 [facility] Platelet mean volume Auto (B ld) [Entitic vol]on 10-30-2023 Platelet mean volume (Bld) [Entitic vol] 9.4 fL 9.5-13.5 [facility] Platelets Auto (Bld) [#/Vol] on 10-30-2023 Platelets (Bld) [#/Vol] 264 10 3/uL 150-450 [facility] RBC Auto (Bld) [#/Vol]on RBC (Bld) [#/Vol] 3.16 10 6/uL 4.20-5.40 [facility] Serum or plasma anion gap de terminationon 10-30-2023 Anion gap [Moles/Vol] 11.2 mmol/L Fi [facility] HCG ( test) IA.rapi d Ql (U)on 10-06-2023 HCG ( test) Ql (U) Negative NEGATIVE [facility] COVID + FLU Quick Testingon 07-07-2023 SARS-CoV-2 (COVID-19) RNA SURI+probe Ql (Unsp spec) Negative Posterous Other COVID + FLU Quick Testing Negative Posterous Other Alanine aminotransferase [En zymatic activity/volume] in Serum or PlasmaOrdered By: Celio Mullins on 07-03-2023 ALT [Catalytic activity/Vol] 22 U/L 7-52 [facility] Albumin [Mass/volume] in Ser um or Plasma by Bromocresol green (BCG) dye binding methoOrdered By: Celio Mullins on 07-03-2023 Albumin BCG dye [Mass/Vol] 4.4 g/dL 3.5-5.7 [facility] Alkaline phosphatase [Enzyma tic activity/volume] in Serum or PlasmaOrdered By: Celio Mullins on 07-03-2023 ALP [Catalytic activity/Vol] 68 U/L 34-104 [facility] Aspartate aminotransferase [ Enzymatic activity/volume] in Serum or PlasmaOrdered By: Celio Mullins on 07-03-2023 AST [Catalytic activity/Vol] 18 U/L 13-39 [facility] Bilirubin.total [Mass/volume ] in Serum or PlasmaOrdered By: Celio Mullins on 07-03-2023 Bilirubin [Mass/Vol] 0.4 mg/dL 0.3-1.0 [facility] Calcium [Mass/volume] in Ser um or PlasmaOrdered By: Celio Mullins on 07-03-2023 Calcium [Mass/Vol] 9.4 mg/dL 8.6-10.[address] [facility] Carbon dioxide, total [Moles /volume] in Serum or PlasmaOrdered By: Celio Mullins on 07-03-2023 CO2 [Moles/Vol] 30.1 mmol/L 21.0-31.0 [facility] Chloride [Moles/volume] in S marta or PlasmaOrdered By: Celio Mullins on 07-03-2023 Chloride [Moles/Vol] 105 mmol/L 98-107 [facility] Cholesterol [Mass/volume] in Serum or PlasmaOrdered By: Celio Mullins on 07-03-2023 Cholesterol [Mass/Vol] 126 mg/dL 140-200 [facility] Comment on above: Chol less than 200 m g/dl low riskChol 201-239 mg/dl borderline riskChol 240 mg/dl and greater high risk Cholesterol in LDL Calc [Mas s/Vol]Ordered By: Celio Mullins on 07-03-2023 Cholesterol in LDL [Mass/Vol] 69 mg/dL 0-100 [facility] Comment on above: LDL ATP III CLASSIFI CATIONLDL less than 100 mg/dL OptimalLDL 100-129 mg/dL Near or above optimalLDL 130-159 mg/dL Borderline highLDL 160-189 mg/dL HighLDL greater than 189 mg/dL Very high Cholesterol in VLDL Calc [Ma ss/Vol]Ordered By: Celio Mullins on 07-03-2023 Cholesterol in VLDL [Mass/Vol] 18 mg/dL [facility] Creatinine [Mass/volume] in Serum or PlasmaOrdered By: Celio Mullins on 07-03-2023 Creatinine [Mass/Vol] 0.63 mg/dL 0.60-1.20 [facility] Globulin Calc (S) [Mass/Vol] Ordered By: Celio Mullins on 07-03-2023 Globulin (S) [Mass/Vol] 3.1 g/dL [facility] Glucose [Mass/volume] in Ser um or PlasmaOrdered By: Celio Mullins on 07-03-2023 Glucose [Mass/Vol] 97 mg/dL 70-[address] [facility] Comment on above: ADA recommended refe rence rangeRandom Glucose Reference Range is dependent on time and content of last meal. Glucose of more than 200 mg/dL in a nonstressed, ambulatory subject supports the diagnosis of Diabetes Mellitus. No Panel InformationOrdered By: Celio Mullins on 07-03-2023 Estimated GFR (CKD-EPI) > 60.0 mL/Min [facility] Creatinine Clearance (Chem N/A [facility] Potassium [Moles/volume] in Serum or PlasmaOrdered By: Celio Mullins on 07-03-2023 Potassium [Moles/Vol] 4.3 mmol/L 3.5-5.1 [facility] Protein [Mass/volume] in Ser um or PlasmaOrdered By: Celio Mullins on 07-03-2023 Protein [Mass/Vol] 7.5 g/dL 6.4-8.[address] [facility] Serum or plasma albumin/glob ulin mass ratioOrdered By: Celio Mullins on 07-03-2023 Albumin/Globulin [Mass ratio] 1.4 {ratio} [facility] Serum or plasma anion gap de terminationOrdered By: Celio Mullins on 07-03-2023 Anion gap [Moles/Vol] 10.2 mmol/L 6.0-15.0 [facility] Serum or plasma high density lipoprotein (HDL) cholesterol measurementOrdered By: Celio Mullins on 07-03-2023 Cholesterol in HDL [Mass/Vol] 39 mg/dL 23-92 [facility] Comment on above: HDL CHOL ATP-III CLA SSIFICATION Cardiovascular RiskHDL > or equal to 60 mg/dL LOWHDL < 40 mg/dL HIGH Serum or plasma total choles terol/high density lipoprotein (HDL) cholesterol mass ratOrdered By: Celio Mullins on 07-03-2023 Cholesterol.total/Mali sterol in HDL [Mass ratio] 3.2 {ratio} <5.0 [facility] Sodium [Moles/volume] in Ser um or PlasmaOrdered By: Celio Mullins on 07-03-2023 Sodium [Moles/Vol] 141 mmol/L 136-[address] [facility] Triglyceride [Mass/volume] i n Serum or PlasmaOrdered By: Celio Mullins on 07-03-2023 Triglyceride [Mass/Vol] 92 mg/dL 0-149 [facility] Comment on above: TRIG ATP III CLASSIF ICATIONTRIG less than 150 mg/dL NormalTRIG 150-199 mg/dL Borderline highTRIG 200-500 mg/dL High TRIG greater than 500 mg/dL Very highStandard traceable to the Center for Disease Conrtrol and Prevention (CDC) test method. Urea nitrogen [Mass/volume] in Serum or PlasmaOrdered By: Celio Mullins on 07-03-2023 Urea nitrogen [Mass/Vol] 13 mg/dL 03-11 [facility] Alanine aminotransferase [En zymatic activity/volume] in Serum or PlasmaOrdered By: Celio Mullins on 07-01-2023 ALT [Catalytic activity/Vol] 21 U/L [facility] Albumin [Mass/volume] in Ser um or Plasma by Bromocresol green (BCG) dye binding methoOrdered By: Celio Mullins on 07-01-2023 Albumin BCG dye [Mass/Vol] 4.6 g/dL 3.5-5.7 [facility] Alkaline phosphatase [Enzyma tic activity/volume] in Serum or PlasmaOrdered By: Celio Mullins on 07-01-2023 ALP [Catalytic activity/Vol] 72 U/L 34-104 [facility] Apolipoprotein B [Mass/volum e] in Serum or PlasmaOrdered By: Celio Mullins on 07-01-2023 Apolipoprotein B [Mass/Vol] 83 mg/dL <90 [facility] Comment on above: Desirable < 90 Charissa almanza High 90 - 99 High 100 - 130 Very High >130 ASCVD RISK THERAPEUTIC TARGET CATEGORY APO B (mg/dL) Very High Risk <80 (if extreme risk <70) High Risk <90 Moderate Risk <90Performed at: BN - [facility] [address] [id number] Director: Jeanna Case MD, Phone: [phone] Aspartate aminotransferase [ Enzymatic activity/volume] in Serum or PlasmaOrdered By: Celio Mullins on 07-01-2023 AST [Catalytic activity/Vol] 19 U/L 13-39 [facility] Bilirubin.total [Mass/volume ] in Serum or PlasmaOrdered By: Celio Mullins 07-01-2023 Bilirubin [Mass/Vol] 0.4 mg/dL 0.3-1.0 [facility] Calcium [Mass/volume] in Ser um or PlasmaOrdered By: Celio Mullins 07-01-2023 Calcium [Mass/Vol] 9.8 mg/dL 8.6-10.[address] [facility] Carbon dioxide, total [Moles /volume] in Serum or PlasmaOrdered By: Celio Mullins on 07-01-2023 CO2 [Moles/Vol] 25.3 mmol/L 21.0-31.0 [facility] Chloride [Moles/volume] in S marta or PlasmaOrdered By: Celio Mullins 07-01-2023 Chloride [Moles/Vol] 105 mmol/L 98-107 [facility] Creatinine [Mass/volume] in Serum or PlasmaOrdered By: Celio Mullins 07-01-2023 Creatinine [Mass/Vol] 0.64 mg/dL 0.60-1.20 [facility] Globulin Calc (S) [Mass/Vol] Ordered By: Celio Mullins on 07-01-2023 Globulin (S) [Mass/Vol] 3.2 g/dL F [facility] Glucose [Mass/volume] in Ser um or PlasmaOrdered By: Celio Mullins on 07-01-2023 Glucose [Mass/Vol] 95 mg/dL 70-[address] [facility] Comment on above: ADA recommended refe [...] glycated hemoglobin (Bld) [Mass/Vol] 117 mg/dL [facility] Hemoglobin A1c percentageOrd ered By: Celio Mullins on 07-01-2023 HbA1c (Bld) [Mass fraction] 5.7 % 4.3-5.6 [facility] Comment on above: Increased risk for d iabetes: 5.7 - 6.4diabetes: >6.4glycemic control for adults with diabetes: <7.0 No Panel InformationOrdered By: Celio Mullins on 07-01-2023 Estimated GFR (CKD-EPI) > 60.0 mL/Min [facility] Creatinine Clearance (Chem N/A [facility] Potassium [Moles/volume] in Serum or PlasmaOrdered By: Celio Mullins on 07-01-2023 Potassium [Moles/Vol] 3.8 mmol/L 3.5-5.1 [facility] Protein [Mass/volume] in Ser um or PlasmaOrdered By: Celio Mullins on 07-01-2023 Protein [Mass/Vol] 7.8 g/dL 6.4-8.[address] [facility] Serum or plasma albumin/glob ulin mass ratioOrdered By: Celio Mullins on 07-01-2023 Albumin/Globulin [Mass ratio] 1.4 {ratio} [facility] Serum or plasma anion gap de terminationOrdered By: Celio Mullins on 07-01-2023 Anion gap [Moles/Vol] 11.5 mmol/L 6.0-15.0 [facility] Serum or plasma lipoprotein a measurement (moles/volume)Ordered By: Celio Mullins on 07-01-2023 Lipoprotein a [Moles/Vol] 13.0 nmol/L <75.0 [facility] Comment on above: Note: Values greater than or equal to 75.0 nmol/L may indicate an independent risk factor for CHD, but must be evaluated with caution when applied to non- populations due to the influence of genetic factors on Lp(a) across ethnicities.Performed at: [facility] [id number] Director: Cassius Zhong PhD, Phone: [phone] Sodium [Moles/volume] in Ser um or PlasmaOrdered By: Celio Mullins on 07-01-2023 Sodium [Moles/Vol] 138 mmol/L 136-[address] [facility] Urea nitrogen [Mass/volume] in Serum or PlasmaOrdered By: Celio Mullins on 07-01-2023 Urea nitrogen [Mass/Vol] 16 mg/dL 03-11 [facility] COVID Quick Testingon 2022 Result Negative Posterous Other SARS-CoV-2 (COVID-19) RNA NA A+probe Ql (Resp)on 02-11-2023 SARS-CoV-2 (COVID-19) RNA SURI+probe Ql (Unsp spec) Negative [facility] Contacts+ Other DHEA-SULFATEon 01-01-2023 DHEA-Sulfate 95.3 ug/dL Normal 84.8-378.0 [facility] Comment on above: Performed By: #### D RIMA #### [facility] [address] [place] [address] Dr. Kaushik Palomares FSHon 01-01-2023 FSH 4.6 mIU/mL Normal [facility] Comment on above: Result Comment: Adul t Female: Follicular phase 3.5 - 12.5 Ovulation phase 4.7 - 21.5 Luteal phase 1.7 - 7.7 Postmenopausal 25.8 - 134.8 Performed By: #### C BC #### [facility] [address] [place] [address] Dr. Kaushik Palomares LUTEINIZING HORMONE (LH)on 01-01-2023 LH 3.5 mIU/mL Normal [facility] Comment on above: Result Comment: Adul t Female: Follicular phase 2.4 - 12.6 Ovulation phase 14.0 - 95.6 Luteal phase 1.0 - 11.4 Postmenopausal 7.7 - 58.5 Performed By: #### L BCL #### [facility] [address] [place] [address] Dr. Kaushik Palomares CBC AUTO DIFFon 12-31-2022 BASO # 0.1 103/ul Normal 0.0-0.1 [facility] Comment on above: Performed By: #### C BC #### [facility] [address] [place] [address] Dr. Kaushik Palomares Basophils/100 WBC (Bld) 0.8 % Normal 0.2-2.0 [facility] Comment on above: Performed By: #### C BC #### [facility] [address] [place] [address] Dr. Kaushik Palomares EO # 0.1 103/ul Normal 0.0-0.7 [facility] Comment on above: Performed By: #### C BC #### [facility] [address] [place] [address] Dr. Kaushik Palomares Eosinophils/100 WBC (Bld) 1.7 % Normal 0.9-7.0 [facility] Comment on above: Performed By: #### C BC #### [facility] [address] [place] [address] Dr. Kaushik Palomares Erythrocyte distribution width (RBC) [Ratio] 12.8 % Normal 11.0-15.0 [facility] Comment on above: Performed By: #### C BC #### [facility] [address] [place] [address] Dr. Kaushik Palomares Hematocrit (Bld) [Volume fraction] 33.0 % Critically low 36.0-48.0 [facility] Comment on above: Performed By: #### C BC #### [facility] [address] [place] [address] Dr. Kaushik Palomares Hemoglobin (Bld) [Mass/Vol] 11.0 g/dL Critically low 12.0-16.0 [facility] Comment on above: Performed By: #### C BC #### [facility] [address] [place] [address] Dr. Kaushik Palomares IG # 0.03 10e3/ul Normal 0.00-0.03 [facility] Comment on above: Performed By: #### C BC #### [facility] [address] [place] [address] Dr. Kaushik Palomares IG % 0.5 % Normal 0.0-0.5 [facility] Comment on above: Performed By: #### C BC #### [facility] [address] [place] [address] Dr. Kaushik Palomares LYMPH # 2.4 103/ul Normal 1.2-3.8 [facility] Comment on above: Performed By: #### C BC #### [facility] [address] [place] [address] Dr. Kaushik Palomares Lymphocytes/100 WBC (Bld) 36.6 % Normal 20.5-60.0 [facility] Comment on above: Performed By: #### C BC #### [facility] [address] [place] [address] Dr. Kaushik Palomares MANUAL DIFF REQ NO Normal [facility] Comment on above: Performed By: #### C BC #### [facility] [address] [place] [address] Dr. Kaushik Palomares MCH (RBC) [Entitic mass] 29.0 pg Normal 26.7-34.0 [facility] Comment on above: Performed By: #### C BC #### [facility] [address] [place] [address] Dr. Kaushik Palomares MCHC (RBC) [Mass/Vol] 33.3 g/dL Normal 29.9-35.2 [facility] Comment on above: Performed By: #### C BC #### [facility] [address] [id number] Kaushik Palomares MCV (RBC) [Entitic vol] 87.1 fL Normal 81.0-99.0 [facility] Comment on above: Performed By: #### C BC #### [facility] [id number] Kaushik Palomares MONO # 0.2 103/ul Critically low 0.3-0.8 [facility] Comment on above: Performed By: #### C BC #### [facility] [address] [place] [address] [address] Kaushik Palomares Monocytes/100 WBC (Bld) 3.6 % Normal 1.7-12.0 [facility] Comment on above: Performed By: #### C BC #### [facility] [address] [place] [address] Dr. Kaushik Palomares NEUT # 3.7 103/ul Normal 1.4-6.5 [facility] Comment on above: Performed By: #### C BC #### [facility] [address] [place] [address] Dr. Kaushik Palomares Neutrophils/100 WBC (Bld) 56.8 % Normal 43.0-75.0 [facility] Comment on above: Performed By: #### C BC #### [facility] [address] [place] [address] Dr. Kaushik Palomares Platelet mean volume (Bld) [Entitic vol] 9.8 fL Normal 9.5-13.5 [facility] Comment on above: Performed By: #### C BC #### [facility] [address] [place] [address] Dr. Kaushik Palomares PLT 234 103/ul Normal 150-450 [facility] Comment on above: Performed By: #### C BC #### [facility] [address] [place] [address] Dr. Kaushik Palomares RBC 3.79 106/ul Critically low 4.20-5.40 [facility] Comment on above: Performed By: #### C BC #### [facility] [address] [place] [address] [address] Kaushik Palomares WBC 6.5 103/ul Normal 4.0-11.0 [facility] Comment on above: Performed By: #### C BC #### [facility] [address] [place] [address] Dr. Kaushik Palomares FREE T4on 12-31-2022 Free T4 [Mass/Vol] 0.79 ng/dL Normal 0.76-1.46 [facility] Comment on above: Performed By: #### F T4 #### [facility] [address] [place] [address] Dr. Kaushik Palomares GLYCOHEMOGLOBIN A1Con 2022 ADA RECOMMENDATION SEE BELOW Normal [facility] Comment on above: Result Comment: ADA RECOMMENDED LIMIT 4.0 - 6.0 ADA THERAPEUTIC TARGET < 7.0 ACTION SUGGESTED > 7.0 Performed By: #### A 1C #### [facility] [address] [place] [address] Dr. Kaushik Palomares Glucose [Mass/Vol] 111 mg/dL Normal [facility] Comment on above: Performed By: #### A 1C #### [facility] [address] [place] [address] Dr. Kaushik Palomares HbA1c (Bld) [Mass fraction] 5.5 % Normal 4.5-6.2 [facility] Comment on above: Performed By: #### A 1C #### [facility] [address] [place] [address] Dr. Kaushik Palomares TSHon 12-31-2022 TSH 1.114 uIU/mL Normal 0.358-3.74 0 [facility] Comment on above: Performed By: #### C BC #### [facility] [address] [place] [address] Dr. Kaushik Palomares US PELVIS AND TRANSVAGon [...] by: SUGEY MACDONALD Date: 2022-11-26 15:58 Normal [facility] XR SACRUM_COCCYXon 3 XR SACRUM_COCCYX EXAMINATION: [...] SUGEY MACDONALD Date: 2022-11-08 10:01 Normal [facility] PAP ACOG PANEL 2: 30 to 65on 11-05-2022 . . Normal [facility] Comment on above: Result Comment: Perf ormed at: WB Performed By: #### C BC #### [facility] [address] [place] [address] [address] Kaushik Palomares Age Gdln ACOG Testing 30-65 Normal [facility] Comment on above: Performed By: #### C BC #### [facility] [address] [place], [place] [address] Dr. Kaushik Palomares DIAGNOSIS: Comment Normal [facility] Comment on above: Result Comment: NEGA TIVE FOR INTRAEPITHELIAL LESION OR MALIGNANCY. Performed at: WB Performed By: #### C BC #### [facility] [address] [place] [address] [address] Kaushik Palomares HPV Aptima Negative Normal Negative [facility] Comment on above: Result Comment: This nucleic acid amplification test detects fourteen high-risk HPV types (16,18,31,33,35,39,45,51,52,56,58,59,66,68) without differentiation. Performed at: =G Performed By: #### C BC #### [facility] [address] [place] [address] [address] Kaushik Palomares HPV Genotype Reflex Comment Normal [facility] Comment on above: Result Comment: Crit eria not met, HPV Genotype not performed. Performed at: WB Performed By: #### C BC #### [facility] [address] [place] [address] Dr. Kaushik Palomares Methodology: Comment Normal [facility] Comment on above: Result Comment: This liquid based ThinPrep(R) pap test was screened with the use of an image guided system. Performed at: WB Performed By: #### C BC #### [facility] [address] [place] [address] Dr. Kaushik Palomares Note: Comment Normal [facility] Comment on above: Result Comment: The [...] WB Performed By: #### C BC #### [facility] [address] [place] [address] [address] Kaushik Palomares Performed by: Comment Normal [facility] Comment on above: Result Comment: Robi Graham, [employer] (ASCP) Performed at: WB Performed By: #### C BC #### [facility] [address] [place], [place] [id number] Dr. Kaushik Palomares Specimen adequacy: Comment Normal [facility] Comment on above: Result Comment: Sati sfactory for evaluation. Endocervical and/or squamous metaplastic cells (endocervical component) are present. Performed at: WB Performed By: #### C BC #### [facility] [address] [place] [address] Dr. Kaushik Palomares COVID/FLU RT-PCRon 2 SARS-CoV-2 (COVID-19) RNA SURI+probe Ql (Unsp spec) Negative Posterous Other COVID/FLU RT-PCR Negative [facility] Contacts+ Other HCG-BETA SUBUNIT QUANTon hCG,Beta Subunit,Qnt,Serum <1 Normal [facility] Comment on above: Result Comment: Fema le (Non-) 0 - 5 (Postmenopausal) 0 - 8 . Female () Weeks of Gestation 3 6 - 71 4 10 - 750 5 482 - 2117 6 612 - 67475 7 [phone] -[phone] 8 77831 -[phone] 9 38385 -015035 10 73557 -417549 12 73151 -891337 14 88138 - 10119 15 11054 - 74354 16 8094 - 25762 17 2105 - 07271 18 6414 - 89231 Rg ECLIA methodology Performed By: #### H CGSUB #### [facility] [address] [place] [address] Dr. Kaushik Palomares T4 LABCORPon 01-22-2022 T4 [Mass/Vol] 7.8 ug/dL Normal 4.5-12.0 [facility] Comment on above: Performed By: #### T 4LC #### [facility] [address] [place] [address] Dr. Kaushik Palomares CBC AUTO DIFFon 01-21-2022 BASO # 0.1 103/ul Normal 0.0-0.1 [facility] Comment on above: Performed By: #### C BC #### [facility] [address] [place] [address] Dr. Kaushik Palomares Basophils/100 WBC (Bld) 0.6 % Normal 0.2-2.0 [facility] Comment on above: Performed By: #### C BC #### [facility] [address] [place] [address] [address] Kaushik Palomares EO # 0.1 103/ul Normal 0.0-0.7 [facility] Comment on above: Performed By: #### C BC #### [facility] [address] [place] [address] Dr. Kaushik Palomares Eosinophils/100 WBC (Bld) 1.2 % Normal 0.9-7.0 [facility] Comment on above: Performed By: #### C BC #### [facility] [address] [place] [address] Dr. Kaushik Palomares Erythrocyte distribution width (RBC) [Ratio] 13.3 % Normal 11.0-15.0 [facility] Comment on above: Performed By: #### C BC #### [facility] [address] [place] [address] Dr. Kaushik Palomares Hematocrit (Bld) [Volume fraction] 40.0 % Normal 36.0-48.0 [facility] Comment on above: Performed By: #### C BC #### [facility] [address] [place] [address] Dr. Kaushik Palomares Hemoglobin (Bld) [Mass/Vol] 12.7 g/dL Normal 12.0-16.0 [facility] Comment on above: Performed By: #### C BC #### [facility] [address] [place] [address] Dr. Kaushik Palomares IG # 0.02 10e3/ul Normal 0.00-0.03 [facility] Comment on above: Performed By: #### C BC #### [facility] [address] [place] [address] Dr. Kaushik Palomares IG % 0.2 % Normal 0.0-0.5 [facility] Comment on above: Performed By: #### C BC #### [facility] [address] [place] [address] Dr. Kaushik Palomares LYMPH # 3.0 103/ul Normal 1.2-3.8 [facility] Comment on above: Performed By: #### C BC #### [facility] [address] [place] [address] Dr. Kaushik Palomares Lymphocytes/100 WBC (Bld) 32.9 % Normal 20.5-60.0 [facility] Comment on above: Performed By: #### C BC #### [facility] [address] [place] [address] Dr. Kaushik Palomares MANUAL DIFF REQ NO Normal [facility] Comment on above: Performed By: #### C BC #### [facility] [address] [place] [address] Dr. Kaushik Palomares MCH (RBC) [Entitic mass] 28.5 pg Normal 26.7-34.0 [facility] Comment on above: Performed By: #### C BC #### [facility] [address] [place] [address] Dr. Kaushik Palomares MCHC (RBC) [Mass/Vol] 31.8 g/dL Normal 29.9-35.2 [facility] Comment on above: Performed By: #### C BC #### [facility] [address] [place] [address] Dr. Kaushik Palomares MCV (RBC) [Entitic vol] 89.7 fL Normal 81.0-99.0 [facility] Comment on above: Performed By: #### C BC #### [facility] [address] [place] [address] Dr. Kaushik Palomares MONO # 0.5 103/ul Normal 0.3-0.8 [facility] Comment on above: Performed By: #### C BC #### [facility] [address] [place] [address] Dr. Kaushik Palomares Monocytes/100 WBC (Bld) 5.1 % Normal 1.7-12.0 [facility] Comment on above: Performed By: #### C BC #### [facility] [address] [place] [address] Dr. Kaushik Palomares NEUT # 5.4 103/ul Normal 1.4-6.5 [facility] Comment on above: Performed By: #### C BC #### [facility] [address] [place] [address] [address] Kaushik Palomares Neutrophils/100 WBC (Bld) 60.0 % Normal 43.0-75.0 [facility] Comment on above: Performed By: #### C BC #### [facility] [address] [place] [address] [address] Kaushik Palomares Platelet mean volume (Bld) [Entitic vol] 9.3 fL Critically low 9.5-13.5 [facility] Comment on above: Performed By: #### C BC #### [facility] [address] [place] [address] Dr. Kaushik Palomares PLT 221 103/ul Normal 150-450 [facility] Comment on above: Performed By: #### C BC #### [facility] [address] [place] [address] Dr. Kaushik Palomares RBC 4.46 106/ul Normal 4.20-5.40 [facility] Comment on above: Performed By: #### C BC #### [facility] [address] [place] [address] Dr. Kaushik Palomares WBC 9.0 103/ul Normal 4.0-11.0 [facility] Comment on above: Performed By: #### C BC #### [facility] [address] [place] [address] Dr. Kaushik Palomares GLYCOHEMOGLOBIN A1Con 2021 ADA RECOMMENDATION SEE BELOW Normal [facility] Comment on above: Result Comment: ADA RECOMMENDED LIMIT 4.0 - 6.0 ADA THERAPEUTIC TARGET < 7.0 ACTION SUGGESTED > 7.0 Performed By: #### C BC #### [facility] [address] [place] [address] Dr. Kaushik Palomares Glucose [Mass/Vol] 94 mg/dL Normal [facility] Comment on above: Performed By: #### C BC #### [facility] [address] [place] [address] Dr. Kaushik Palomares HbA1c (Bld) [Mass fraction] 4.9 % Normal 4.5-6.2 [facility] Comment on above: Performed By: #### C BC #### [facility] [address] [address] [address] Kaushik Palomares LIPID PROFILEon 01-21-2022 CHOL-HDL RATIO NORM SEE BELOW Normal [facility] Comment on above: Result Comment: 3.3 - 4.4 LOW RISK 4.4 - 7.1 AVERAGE RISK 7.1 - 11.0 MODERATE RISK >11.0 HIGH RISK Performed By: #### L IPID, CMP, TSH #### [facility] [address] [address] [address] Kaushik Palomares Cholesterol [Mass/Vol] 168 mg/dL Normal <=200 [facility] Comment on above: Performed By: #### L IPID, CMP, TSH #### [facility] [address] [place] [address] [address] Kaushik Palomares Cholesterol in HDL [Mass/Vol] 41 mg/dL Normal 40-60 [facility] Comment on above: Performed By: #### L IPID, CMP, TSH #### [facility] [address] [address] [address] Kaushik Palomares Cholesterol in LDL [Mass/Vol] 90.2 mg/dL Normal [facility] Comment on above: Performed By: #### L IPID, CMP, TSH #### [facility] [address] [place] [address] [address] Kaushik Palomares Cholesterol.total/Mali sterol in HDL [Mass ratio] 4.1 {ratio} Normal [facility] Comment on above: Performed By: #### L IPID, CMP, TSH #### [facility] [address] [place] [address] [address] Kaushik Palomares HDL NORMAL > or = 60 mg/dl - LO W CARDIOVASCULAR RISK <40 mg/dl - HIGH CARDIOVASCULAR RISK Normal [facility] Comment on above: Performed By: #### L IPID, CMP, TSH #### [facility] [address] [place] [address] [address] Kaushik Palomares LDL CALC NORMAL SEE BELOW Normal [facility] Comment on above: Result Comment: <100 mg/dl OPTIMAL 100 - 129 mg/dl NEAR OR ABOVE OPTIMAL 130 - 159 mg/dl BORDERLINE HIGH 160 - 189 mg/dl HIGH >190 mg/dl VERY HIGH Performed By: #### L IPID, CMP, TSH #### [facility] [address] [place] [address] Dr. Kaushik Palomares Triglyceride [Mass/Vol] 184 mg/dL Critically high <=150 [facility] Comment on above: Performed By: #### L IPID, CMP, TSH #### [facility] [address] [place] [address] Dr. Kaushik Palomares VLDL CALC 36.8 mg/dL Normal [facility] Comment on above: Performed By: #### L IPID, CMP, TSH #### [facility] [address] [place] [address] Dr. Kaushik Palomares MICROALBUMIN, RAND URon mALB 2.0 mg/L Normal <=30.0 [facility] Comment on above: Performed By: #### C BC #### [facility] [address] [place] [address] Dr. Kaushik Palomares PROF 14(COMP METB)on 022 Albumin [Mass/Vol] 3.7 g/dL Normal 3.4-5.0 [facility] Comment on above: Performed By: #### L IPID, CMP, TSH #### [facility] [address] [place] [address] Dr. Kaushik Palomares Albumin/Globulin [Mass ratio] 0.9 {ratio} Normal [facility] Comment on above: Performed By: #### L IPID, CMP, TSH #### [facility] [address] [place] [address] Dr. Kaushik Palomares ALP [Catalytic activity/Vol] 53 U/L Normal 46-116 [facility] Comment on above: Performed By: #### L IPID, CMP, TSH #### [facility] [address] [place] [address] Dr. Kaushik Palomares ALT [Catalytic activity/Vol] 44 U/L Normal 14-59 [facility] Comment on above: Performed By: #### L IPID, CMP, TSH #### [facility] [address] [address] [address] Kaushik Palomares Anion gap [Moles/Vol] 6.8 mmol/L Normal [facility] Comment on above: Performed By: #### L IPID, CMP, TSH #### [facility] [address] [address] [address] Kaushik Palomares AST [Catalytic activity/Vol] 22 U/L Normal 15-37 [facility] Comment on above: Performed By: #### L IPID, CMP, TSH #### [facility] [address] [address] [address] Kaushik Palomares Bilirubin [Mass/Vol] 0.3 mg/dL Normal 0.2-1.0 [facility] Comment on above: Performed By: #### L IPID, CMP, TSH #### [facility] [address] [address] [address] Kaushik Palomares Calcium [Mass/Vol] 9.2 mg/dL Normal 8.5-10.1 [facility] Comment on above: Performed By: #### L IPID, CMP, TSH #### [facility] [address] [address] [address] Kaushik Palomares Chloride [Moles/Vol] 102 mmol/L Normal 98-107 [facility] Comment on above: Performed By: #### L IPID, CMP, TSH #### [facility] [address] [address] [address] Kaushik Palomares CO2 [Moles/Vol] 31.4 mmol/L Normal 21.0-32.0 [facility] Comment on above: Performed By: #### L IPID, CMP, TSH #### [facility] [address] [address] [address] Kaushik Palomares Creatinine [Mass/Vol] 0.71 mg/dL Normal 0.55-1.02 [facility] Comment on above: Performed By: #### L IPID, CMP, TSH #### [facility] [address] [address] [address] Kaushik Palomares EGFR-AF CITIZEN OF [place] >60 Normal >=60 [facility] Comment on above: Performed By: #### L IPID, CMP, TSH #### [facility] [address] [address] [address] Kaushik Palomares EGFR-NON AF CITIZEN OF [place] >60 Normal >=60 [facility] Comment on above: Performed By: #### L IPID, CMP, TSH #### [facility] [address] [address] [address] Kaushik Palomares Globulin (S) [Mass/Vol] 4.2 g/dL Normal T [facility] Comment on above: Performed By: #### L IPID, CMP, TSH #### [facility] [address] [address] [address] Kaushik Palomares Glucose [Mass/Vol] 93 mg/dL Normal 74-106 [facility] Comment on above: Performed By: #### L IPID, CMP, TSH #### [facility] [address] [place] [address] Dr. Kaushik Palomares Potassium [Moles/Vol] 4.2 mmol/L Normal 3.5-5.1 [facility] Comment on above: Performed By: #### L IPID, CMP, TSH #### [facility] [address] [place] [address] Dr. Kaushik Palomares Protein [Mass/Vol] 7.9 g/dL Normal 6.4-8.2 [facility] Comment on above: Performed By: #### L IPID, CMP, TSH #### [facility] [address] [place] [address] Dr. Kaushik Palomares Sodium [Moles/Vol] 136 mmol/L Normal 136-145 [facility] Comment on above: Performed By: #### L IPID, CMP, TSH #### [facility] [address] [place] [address] Dr. Kaushik Palomares Urea nitrogen [Mass/Vol] 11.0 mg/dL Normal 7.0-18.0 [facility] Comment on above: Performed By: #### L IPID, CMP, TSH #### [facility] [address] [place] [address] Dr. Kaushik Palomares Urea nitrogen/Creatinine [Mass ratio] 15.5 mg/mg Normal [facility] Comment on above: Performed By: #### L IPID, CMP, TSH #### [facility] [address] [address] [address] Kaushik Palomares TSHon 01-21-2022 TSH 1.298 uIU/mL Normal 0.358-3.74 0 [facility] Comment on above: Performed By: #### C BC #### [facility] [address] [address] [address] Kaushik Palomares TSH RANGE SEE BELOW Normal [facility] Comment on above: Result Comment: <0.3 4 UIU/ml HYPERTHYROID 0.34-5.60 UIU/ml EUTHYROID >5.60 UIU/ml HYPOTHYROID Performed By: #### C BC #### [facility] [address] [address] [address] Kaushik Palomares COVID Quick Testingon 2020 Result Negative [employer] Other Quick Strepon 06-17-2021 S. pyogenes Org specific cx Ql (Throat) Negative [employer] Other Quick Strep [employer] Other Urinalysis - AUTOMATEDon Appearance (U) cloudy [employer] Other Bilirubin Ql (U) Negative [employer] Other Color (U) yellow [employer] Other Glucose Ql (U) Negative [employer] Other Hemoglobin Ql (U) large [employer] Other Ketones Ql (U) Negative [employer] Other Leukocyte esterase Test strip Ql (U) trace [employer] Other Nitrite Ql (U) Positive [employer] Other pH (U) 5.5 [pH] [employer] Other Protein Ql (U) 100 [employer] Other Specific gravity (U) [Rel density] 1.025 [facility] Contacts+ Other Urobilinogen (U) [Mass/Vol] 0.2 mg/dL [facility] Contacts+ Other Urinalysis - AUTOMATED [facility]+ Other Urine Cultureon 05-31-2021 Urine Culture >100,000 [facility] Contacts+ Other Urine Culture <16 [facility] Contacts+ Other Urine Culture >16 [facility] Contacts+ Other Urine Culture <4 [facility] Contacts+ Other Urine Culture 8 [facility]+ Other Urine Culture <2 [facility]acts+ Other Urine Culture <1 [facility] Contacts+ Other Urine Culture >2 [facility] Contacts+ Other Urine Culture <0.5 [facility] Contacts+ Other Urine Culture >8 [facility] Contacts+ Other Urine Culture >4 [facility]+ Other Urine Culture <32 [facility] Contacts+ Other Urine Culture >2/38 [facility] Contacts+ Other Vital Signs Date Time Vital Sign Value Performing Clinician Trena min 03-22-2025 08:02-0400 Body height 162.56 cm Manisha Marc APRN Work Phone: [facility] 03-22-2025 08:02-0400 Body mass index (BMI) [Ratio] 58.1 kg/m2 Manisha Marc APRN Work Phone: [facility] 03-22-2025 08:02-0400 Body temperature 98.1 [degF] Manisha Barclayeliudmarycarmentad CHANGE MANAGEMENT LEAD Work Phone: [facility] 03-22-2025 08:02-0400 Body weight 153.76 kg Manisha Marc CHANGE MANAGEMENT LEAD Work Phone: [facility] 03-22-2025 08:02-0400 Diastolic blood pressure 80 mm[Hg] Manisha Barclayeliudmarycarmentad CHANGE MANAGEMENT LEAD Work Phone: [facility] 03-22-2025 08:02-0400 Heart rate 88 /min Manisha Barclayeliudmarycarmentad CHANGE MANAGEMENT LEAD Work Phone: [facility] 03-22-2025 08:02-0400 SaO2% (BldA) [Mass fraction] 96 % Manisha Barclayfani CHANGE MANAGEMENT LEAD Work Phone: [facility] 03-22-2025 08:02-0400 Systolic blood pressure 126 mm[Hg] Manisha Barclayeliudmarycarmentad CHANGE MANAGEMENT LEAD Work Phone: [facility] 03-11-2025 12:14-0400 Body height 162.56 cm Manisha Keanetad CHANGE MANAGEMENT LEAD Work Phone: [facility] 03-11-2025 12:14-0400 Body mass index (BMI) [Ratio] 58.4 kg/m2 Manisha Barclayeliudmarycarmentad CHANGE MANAGEMENT LEAD Work Phone: [facility] 03-11-2025 12:14-0400 Body temperature 98.1 [degF] Manisha Barclayeliudmarycarmentad CHANGE MANAGEMENT LEAD Work Phone: [facility] 03-11-2025 12:14-0400 Body weight 154.44 kg Manisha Marc CHANGE MANAGEMENT LEAD Work Phone: [facility] 03-11-2025 12:14-0400 Diastolic blood pressure 78 mm[Hg] Manisha Charlymarycarmentad CHANGE MANAGEMENT LEAD Work Phone: [facility] 03-11-2025 12:14-0400 Heart rate 118 /min Manisha Marc CHANGE MANAGEMENT LEAD Work Phone: [facility] 03-11-2025 12:14-0400 Respiratory rate 18 /min Manisha Marc CHANGE MANAGEMENT LEAD Work Phone: [facility] 03-11-2025 12:14-0400 SaO2% (BldA) [Mass fraction] 98 % Manisha Marc CHANGE MANAGEMENT LEAD Work Phone: [facility] 03-11-2025 12:14-0400 Systolic blood pressure 126 mm[Hg] Mnaisha Marc CHANGE MANAGEMENT LEAD Work Phone: [facility] 03-03-2025 10:20-0400 Body height 162.56 cm Manisha Marc CHANGE MANAGEMENT LEAD Work Phone: [facility] 03-03-2025 10:20-0400 Body mass index (BMI) [Ratio] 57.9 kg/m2 Manisha Marc CHANGE MANAGEMENT LEAD Work Phone: [facility] 03-03-2025 10:20-0400 Body weight 153.2 kg Manisha Marc CHANGE MANAGEMENT LEAD Work Phone: [facility] 02-22-2025 16:50-0400 Body height 162.56 cm Manisha Marc CHANGE MANAGEMENT LEAD Work Phone: [facility] 02-22-2025 16:50-0400 Body mass index (BMI) [Ratio] 57.9 kg/m2 Manisha Marc CHANGE MANAGEMENT LEAD Work Phone: [facility] 02-22-2025 16:50-0400 Body temperature 98.8 [degF] Manisha Marc CHANGE MANAGEMENT LEAD Work Phone: [facility] 02-22-2025 16:50-0400 Body weight 152.91 kg Manisha Marc APRN Work Phone: [facility] 02-22-2025 16:50-0400 Diastolic blood pressure 76 mm[Hg] Manisha Keanetad CHANGE MANAGEMENT LEAD Work Phone: [facility] 02-22-2025 16:50-0400 Heart rate 108 /min Manisha Marc CHANGE MANAGEMENT LEAD Work Phone: [facility] 02-22-2025 16:50-0400 Respiratory rate 18 /min Manisha Marc CHANGE MANAGEMENT LEAD Work Phone: [facility] 02-22-2025 16:50-0400 SaO2% (BldA) [Mass fraction] 97 % Manisha Keanetad CHANGE MANAGEMENT LEAD Work Phone: [facility] 02-22-2025 16:50-0400 Systolic blood pressure 119 mm[Hg] Manisha Keanetad CHANGE MANAGEMENT LEAD Work Phone: [facility] 02-17-2025 10:56-0400 Body height 162.56 cm Manisha Marc CHANGE MANAGEMENT LEAD Work Phone: [facility] 02-17-2025 10:56-0400 Body mass index (BMI) [Ratio] 57.8 kg/m2 Manisha Marc CHANGE MANAGEMENT LEAD Work Phone: [facility] 02-17-2025 10:56-0400 Body temperature 96.5 [degF] Manisha Keanetad CHANGE MANAGEMENT LEAD Work Phone: [facility] 02-17-2025 10:56-0400 Body weight 152.86 kg Manisha Marc CHANGE MANAGEMENT LEAD Work Phone: [facility] 02-17-2025 10:56-0400 Diastolic blood pressure 84 mm[Hg] Manisha Keanetad CHANGE MANAGEMENT LEAD Work Phone: [facility] 02-17-2025 10:56-0400 Heart rate 96 /min Manisha Barclayeliudmarycarmentad CHANGE MANAGEMENT LEAD Work Phone: [facility] 02-17-2025 10:56-0400 SaO2% (BldA) [Mass fraction] 97 % Manisha Marc CHANGE MANAGEMENT LEAD Work Phone: [facility] 02-17-2025 10:56-0400 Systolic blood pressure 134 mm[Hg] Manisha Marc CHANGE MANAGEMENT LEAD Work Phone: [facility] 11-15-2024 13:35-0400 Body height 162.56 cm Manisha Marc CHANGE MANAGEMENT LEAD Work Phone: [facility] 11-15-2024 13:35-0400 Body mass index (BMI) [Ratio] 57.4 kg/m2 Manisha Marc CHANGE MANAGEMENT LEAD Work Phone: [facility] 11-15-2024 13:35-0400 Body temperature 97.4 [degF] Manisha Keanetad CHANGE MANAGEMENT LEAD Work Phone: [facility] 11-15-2024 13:35-0400 Body weight 151.95 kg Manisha Marc CHANGE MANAGEMENT LEAD Work Phone: [facility] 11-15-2024 13:35-0400 Diastolic blood pressure 80 mm[Hg] Manisha Marc CHANGE MANAGEMENT LEAD Work Phone: [facility] 11-15-2024 13:35-0400 Heart rate 111 /min Manisha Keanetad CHANGE MANAGEMENT LEAD Work Phone: [facility] 11-15-2024 13:35-0400 Systolic blood pressure 122 mm[Hg] Manisha Keanetad CHANGE MANAGEMENT LEAD Work Phone: [facility] 11-03-2024 15:56-0400 Body height 162.6 cm Marko Celestina DO Work Phone: [facility] 11-03-2024 15:56-0400 Body mass index (BMI) [Ratio] 57.12 kg/m2 Marko Celestina DO Work Phone: [facility] 11-03-2024 15:56-0400 Body weight 150.96 kg Marko Celestina DO Work Phone: [facility] 11-03-2024 15:56-0400 Diastolic blood pressure 70 mm[Hg] Marko Celestina DO Work Phone: [facility] 11-03-2024 15:56-0400 Systolic blood pressure 110 mm[Hg] Marko Celestina DO Work Phone: [facility] 09-27-2024 15:46-0500 Body height 162.56 cm PHYSICIAN NO [facility] 09-27-2024 15:46-0500 Body mass index (BMI) [Ratio] 57.3 kg/m2 PHYSICIAN NO [facility] 09-27-2024 15:46-0500 Body temperature 97.9 [degF] PHYSICIAN NO [facility] 09-27-2024 15:46-0500 Body weight 151.49 kg PHYSICIAN NO [facility] 09-27-2024 15:46-0500 Diastolic blood pressure 83 mm[Hg] PHYSICIAN NO [facility] 09-27-2024 15:46-0500 Heart rate 94 /min PHYSICIAN NO [facility] 09-27-2024 15:46-0500 Respiratory rate 18 /min PHYSICIAN NO [facility] 09-27-2024 15:46-0500 SaO2% (BldA) [Mass fraction] 99 % PHYSICIAN NO [facility] 09-27-2024 15:46-0500 Systolic blood pressure 136 mm[Hg] PHYSICIAN NO [facility] 08-28-2024 13:47-0500 Body height 162.56 cm PHYSICIAN NO [facility] 08-28-2024 13:47-0500 Body mass index (BMI) [Ratio] 57.4 kg/m2 PHYSICIAN NO [facility] 08-28-2024 13:47-0500 Body temperature 97.1 [degF] PHYSICIAN NO [facility] 08-28-2024 13:47-0500 Body weight 151.95 kg PHYSICIAN NO [facility] 08-28-2024 13:47-0500 Diastolic blood pressure 86 mm[Hg] PHYSICIAN NO [facility] 08-28-2024 13:47-0500 Heart rate 105 /min PHYSICIAN NO [facility] 08-28-2024 13:47-0500 Respiratory rate 16 /min PHYSICIAN NO [facility] 08-28-2024 13:47-0500 SaO2% (BldA) [Mass fraction] 97 % PHYSICIAN NO [facility] 08-28-2024 13:47-0500 Systolic blood pressure 136 mm[Hg] PHYSICIAN NO [facility] 08-24-2024 11:00-0500 Body height 162.56 cm Manisha Marc APRN Work Phone: [facility] 08-24-2024 11:00-0500 Body mass index (BMI) [Ratio] 56.5 kg/m2 Manisha Marc APRN Work Phone: [facility] 08-24-2024 11:00-0500 Body temperature 97 [degF] Manisha Marc APRN Work Phone: [facility] 08-24-2024 11:00-0500 Body weight 149.34 kg Manisha Marc APRN Work Phone: [facility] 08-24-2024 11:00-0500 Diastolic blood pressure 82 mm[Hg] Manisha Marc APRN Work Phone: [facility] 08-24-2024 11:00-0500 Heart rate 104 /min Manisha Marc APRN Work Phone: [facility] 08-24-2024 11:00-0500 SaO2% (BldA) [Mass fraction] 95 % Manisha Marc APRN Work Phone: [facility] 08-24-2024 11:00-0500 Systolic blood pressure 134 mm[Hg] Manisha Marc APRN Work Phone: [facility] 08-19-2024 11:05-0500 Diastolic blood pressure 72 mm[Hg] Manisha Marc CHANGE MANAGEMENT LEAD Work Phone: [facility] 08-19-2024 11:05-0500 Heart rate 82 /min Manisha Marc CHANGE MANAGEMENT LEAD Work Phone: [facility] 08-19-2024 11:05-0500 Respiratory rate 16 /min Manisha Marc CHANGE MANAGEMENT LEAD Work Phone: [facility] 08-19-2024 11:05-0500 SaO2% (BldA) [Mass fraction] 99 % Manisha Marc CHANGE MANAGEMENT LEAD Work Phone: [facility] 08-19-2024 11:05-0500 Systolic blood pressure 115 mm[Hg] Manisha Marc CHANGE MANAGEMENT LEAD Work Phone: [facility] 08-19-2024 09:01-0500 Body height 162.56 cm Manisha Marc CHANGE MANAGEMENT LEAD Work Phone: [facility] 08-19-2024 09:01-0500 Body weight 149.68 kg Manisha Marc CHANGE MANAGEMENT LEAD Work Phone: [facility] 08-16-2024 11:40-0500 Body mass index (BMI) [Ratio] 57.33 kg/m2 Consuelo Love DENTAL MOLD MAKER Work Phone: [facility] 08-16-2024 11:40-0500 Body weight 151.5 kg Consuelo Love DENTAL MOLD MAKER Work Phone: [facility] 08-16-2024 11:40-0500 Diastolic blood pressure 92 mm[Hg] Consuelo Rosadooll DENTAL MOLD MAKER Work Phone: [facility] 08-16-2024 11:40-0500 Heart rate 82 /min Consuelo Love DENTAL MOLD MAKER Work Phone: [facility] 08-16-2024 11:40-0500 SaO2% (BldA) [Mass fraction] 93 % Consuelo Love DENTAL MOLD MAKER Work Phone: [facility] 08-16-2024 11:40-0500 Systolic blood pressure 144 mm[Hg] Consuelo Love DENTAL MOLD MAKER Work Phone: [facility] 08-09-2024 15:48-0500 Body height 162.56 cm Manisha Tari JANEN Work Phone: [facility] 08-09-2024 15:48-0500 Body mass index (BMI) [Ratio] 58.1 kg/m2 Manisha Tari JANEN Work Phone: [facility] 08-09-2024 15:48-0500 Body temperature 98.7 [degF] Manisha Tari JANEN Work Phone: [facility] 08-09-2024 15:48-0500 Body weight 153.76 kg Manisha Marc APRN Work Phone: [facility] 08-09-2024 15:48-0500 Diastolic blood pressure 94 mm[Hg] Manisha Tari BECKER Work Phone: [facility] 08-09-2024 15:48-0500 Heart rate 135 /min Manisha Tari BECKER Work Phone: [facility] 08-09-2024 15:48-0500 SaO2% (BldA) [Mass fraction] 96 % Manisha Tari JANEN Work Phone: [facility] 08-09-2024 15:48-0500 Systolic blood pressure 134 mm[Hg] Manisha Tari JANEN Work Phone: [facility] 06-23-2024 12:21-0500 Body mass index (BMI) [Ratio] 57.47 kg/m2 Gwen Cox DO Work Phone: [facility] 06-23-2024 12:21-0500 Body weight 151.86 kg Gwen Cox DO Work Phone: [facility] [...] [facility] 06-21-2024 11:18-0500 Body height 162.56 cm CHANGE MANAGEMENT LEADBryon Marc Work Phone: [facility] 06-21-2024 11:18-0500 Body mass index (BMI) [Ratio] 57 kg/m2 CHANGE MANAGEMENT LEADBryon Marc Work Phone: [facility] 06-21-2024 11:18-0500 Body temperature 97.3 [degF] CHANGE MANAGEMENT LEADBryon Marc Work Phone: [facility] 06-21-2024 11:18-0500 Body weight 150.81 kg ROSITA Marc Work Phone: [facility] 06-21-2024 11:18-0500 Diastolic blood pressure 88 mm[Hg] ROSITA Marc Work Phone: [facility] 06-21-2024 11:18-0500 Heart rate 135 /min ROSITA Marc Work Phone: [facility] 06-21-2024 11:18-0500 SaO2% (BldA) [Mass fraction] 94 % ROSITA Marc Work Phone: [facility] 06-21-2024 11:18-0500 Systolic blood pressure 136 mm[Hg] ROSITA Parksacher Work Phone: [facility] 06-15-2024 09:29-0400 Body height 162.56 cm CHANGE MANAGEMENT LEADBryon ColladoManisha Charlyacher Work Phone: [facility] 06-15-2024 09:29-0400 Body mass index (BMI) [Ratio] 57.9 kg/m2 CHANGE MANAGEMENT LEADBryon ColladoManisha Charlyacher Work Phone: [facility] 06-15-2024 09:29-0400 Body temperature 97.5 [degF] CHANGE MANAGEMENT LEADBryon ColladoManisha Charlyacher Work Phone: [facility] 06-15-2024 09:290400 Body weight 152.97 kg ROSITA Colladofer Charlyacher Work Phone: [facility] 06-15-2024 09:29-0400 Diastolic blood pressure 88 mm[Hg] ROSITA Parksacher Work Phone: [facility] 06-15-2024 09:29-0400 Heart rate 103 /min CHANGE MANAGEMENT LEADBryon Parksacher Work Phone: [facility] 06-15-2024 09:29-0400 Respiratory rate 18 /min CHANGE MANAGEMENT LEADBryon ColladoManisha Charlyacher Work Phone: [facility] 06-15-2024 09:29-0400 SaO2% (BldA) [Mass fraction] 95 % CHANGE MANAGEMENT LEADBryon Parksacher Work Phone: [facility] 06-15-2024 09:29-0400 Systolic blood pressure 128 mm[Hg] ROSITA Parksacher Work Phone: [facility] 04-21-2024 14:31-0400 Body height 162.56 cm ROSITA Parksacher Work Phone: [facility] 04-21-2024 14:31-0400 Body mass index (BMI) [Ratio] 55 kg/m2 ROSITA Barclayrbacher Work Phone: [facility] 04-21-2024 14:31-0400 Body weight 145.6 kg CHANGE MANAGEMENT LEAD Manisha Denyrbacher Work Phone: [facility] 04-21-2024 14:31-0400 Diastolic blood pressure 88 mm[Hg] CHANGE MANAGEMENT LEADBryon ColladoManisha Denyrbacher Work Phone: [facility] 04-21-2024 14:31-0400 Heart rate 111 /min CHANGE MANAGEMENT LEADBryon ColladoManisha Denyrbacher Work Phone: [facility] 04-21-2024 14:31-0400 SaO2% (BldA) [Mass fraction] 97 % CHANGE MANAGEMENT LEADBryon ColladoManisha Charlyacher Work Phone: [facility] 04-21-2024 14:31-0400 Systolic blood pressure 136 mm[Hg] CHANGE MANAGEMENT LEADBryon Parksacher Work Phone: [facility] 11-26-2023 08:40-0400 Body height 162.56 cm CHANGE MANAGEMENT LEADBryon Parksacher Work Phone: [facility] 11-26-2023 08:40-0400 Body mass index (BMI) [Ratio] 52.9 kg/m2 CHANGE MANAGEMENT LEAD Manisha Charlyacher Work Phone: [facility] 11-26-2023 08:40-0400 Body weight 139.79 kg CHANGE MANAGEMENT LEADBryon ColladoManisha Charlyacher Work Phone: [facility] 11-26-2023 08:40-0400 Diastolic blood pressure 79 mm[Hg] CHANGE MANAGEMENT LEADBryon Parksacher Work Phone: [facility] 11-26-2023 08:40-0400 Heart rate 97 /min CHANGE MANAGEMENT LEADBryon Parksacher Work Phone: [facility] 11-26-2023 08:40-0400 SaO2% (BldA) [Mass fraction] 99 % ROSIAT Barclayrbacher Work Phone: [facility] 11-26-2023 08:40-0400 Systolic blood pressure 131 mm[Hg] CHANGE MANAGEMENT LEADBryon ColladoManisha Denyrbacher Work Phone: [facility] 11-03-2023 14:06-0400 Body height 162.56 cm CHANGE MANAGEMENT LEADBryon Barclayrbacher Work Phone: [facility] 11-03-2023 14:06-0400 Body mass index (BMI) [Ratio] 53.1 kg/m2 CHANGE MANAGEMENT LEADBryon Barclayrbacher Work Phone: [facility] 11-03-2023 14:06-0400 Body weight 140.61 kg CHANGE MANAGEMENT LEADBryno Barclayrbacher Work Phone: [facility] 11-03-2023 14:06-0400 Diastolic blood pressure 78 mm[Hg] CHANGE MANAGEMENT LEADBryon Parksacher Work Phone: [facility] 11-03-2023 14:06-0400 Heart rate 105 /min CHANGE MANAGEMENT LEADBryon Barclayrbacher Work Phone: [facility] 11-03-2023 14:06-0400 SaO2% (BldA) [Mass fraction] 98 % CHANGE MANAGEMENT LEADBryon ColladoManisha Denyrbacher Work Phone: [facility] 11-03-2023 14:06-0400 Systolic blood pressure 118 mm[Hg] CHANGE MANAGEMENT LEADBryon Barclayrbacher Work Phone: [facility] 10-08-2023 10:50-0500 Body height 162.56 cm CHANGE MANAGEMENT LEADBryon Parksacher Work Phone: [facility] 10-08-2023 10:50-0500 Body weight 139.25 kg CHANGE MANAGEMENT LEADBryon Barclayrbacher Work Phone: [facility] 10-01-2023 09:20-0500 Body height 162.56 cm CHANGE MANAGEMENT LEAD Manisha Keaner Work Phone: [facility] 10-01-2023 09:20-0500 Body mass index (BMI) [Ratio] 53.6 kg/m2 CHANGE MANAGEMENT LEADBryon Parksacher Work Phone: [facility] 10-01-2023 09:20-0500 Body weight 141.69 kg CHANGE MANAGEMENT LEADBryon Parksacher Work Phone: [facility] 10-01-2023 09:20-0500 Diastolic blood pressure 75 mm[Hg] CHANGE MANAGEMENT LEADBryon Parksacher Work Phone: [facility] 10-01-2023 09:20-0500 Heart rate 85 /min CHANGE MANAGEMENT LEADBryon Parksacher Work Phone: [facility] 10-01-2023 09:20-0500 Respiratory rate 18 /min CHANGE MANAGEMENT LEADBryon Parksacher Work Phone: [facility] 10-01-2023 09:20-0500 SaO2% (BldA) [Mass fraction] 99 % CHANGE MANAGEMENT LEADBryon Parksacher Work Phone: [facility] 10-01-2023 09:20-0500 Systolic blood pressure 123 mm[Hg] CHANGE MANAGEMENT LEADBryon Parksacher Work Phone: [facility] 09-03-2023 08:00-0500 Body height 162.56 cm CHANGE MANAGEMENT LEADBryon Parksacher Work Phone: [facility] 09-03-2023 08:00-0500 Body weight 138.79 kg CHANGE MANAGEMENT LEADBryon Parksacher Work Phone: [facility] 09-03-2023 08:00-0500 Diastolic blood pressure 78 mm[Hg] ROSITA Barclayrbacher Work Phone: [facility] 09-03-2023 08:00-0500 Systolic blood pressure 118 mm[Hg] ROSITA Parksacher Work Phone: [facility] 08-19-2023 09:45-0500 Body height 162.56 cm Nely Luis Antoniohari Other [facility] 08-13-2023 14:00-0500 Body height 162.56 cm Manisha Tari Other [facility] 08-13-2023 14:00-0500 Body mass index (BMI) [Ratio] 52.35 kg/m2 Manisha Tari Other [employer] Other 08-13-2023 14:00-0500 Body weight 138.35 kg Manisha Tari Other [employer] Other 08-13-2023 14:00-0500 Body weight 138.34 kg ROSITA Manisha Tari Work Phone: [facility] 08-13-2023 14:00-0500 Diastolic blood pressure 80 mm[Hg] Manisha Tari Other [facility] 08-13-2023 14:00-0500 SaO2% (BldA) [Mass fraction] 98 % Manisha Tari Other [facility] Other 08-13-2023 14:00-0500 Systolic blood pressure 114 mm[Hg] Manisha Marc Other [facility] 07-15-2023 07:45-0500 Body height 162.56 cm Celio Mullins Other [facility] 07-15-2023 07:45-0500 Body mass index (BMI) [Ratio] 52.98 kg/m2 Celio Mullins Other [facility] Other 07-15-2023 07:45-0500 Body weight 140.03 kg Celio Mullins Other [facility] Other 07-15-2023 07:45-0500 Body weight 140.02 kg ROSITA Marc Work Phone: [facility] 07-15-2023 07:45-0500 Diastolic blood pressure 66 mm[Hg] Ceilo Mullins Other [facility] 07-15-2023 07:45-0500 Respiratory rate 18 /min Celio Mullins Other [facility] Other 07-15-2023 07:45-0500 SaO2% (BldA) [Mass fraction] 98 % Celio Mullins Other [facility] Contacts+ Other 07-15-2023 07:45-0500 Systolic blood pressure 112 mm[Hg] Celio Mullins Other [facility] 07-07-2023 11:15-0500 Body height 162.56 cm Michelle Oma Other [facility] 07-07-2023 11:15-0500 Body mass index (BMI) [Ratio] 52.69 kg/m2 Michelle Oma Other [facility] Other 07-07-2023 11:15-0500 Body temperature 98 [degF] Michelle Oma Other [facility] Other 07-07-2023 11:15-0500 Body weight 139.26 kg Michelle Oma Other [facility] Other 07-07-2023 11:15-0500 Body weight 139.25 kg ROSITA Marc Work Phone: [facility] 07-07-2023 11:15-0500 Respiratory rate 20 /min Michelle Ernandez Other [facility] Other 07-07-2023 11:15-0500 SaO2% (BldA) [Mass fraction] 98 % Michelle Oma Other [facility] Other 06-29-2023 10:20-0500 Body height 162.56 cm Michelle Haynesmond Other [facility] Other 06-29-2023 10:20-0500 Body mass index (BMI) [Ratio] 53.03 kg/m2 Michelle Oma Other [facility] Other 06-29-2023 10:20-0500 Body temperature 99.7 [degF] Michelle Haynesmond Other [facility] Other 06-29-2023 10:20-0500 Body weight 140.16 kg Michelle Ernandez Other [facility] Other 06-29-2023 10:20-0500 Respiratory rate 19 /min Michelle Ernandez Other [facility] Other 06-29-2023 10:20-0500 SaO2% (BldA) [Mass fraction] 98 % Michelle Haynesmond Other [facility] Other 06-11-2023 15:30-0400 Body height 162.56 cm Manisha Marc Other [facility] Other 06-11-2023 15:30-0400 Body mass index (BMI) [Ratio] 53.79 kg/m2 Manisha Marc Other [facility] Other 06-11-2023 15:30-0400 Body weight 142.16 kg Manisha Tari Other [facility] Other 06-11-2023 15:30-0400 Diastolic blood pressure 62 mm[Hg] Manisha Tari Other [facility] Other 06-11-2023 15:30-0400 SaO2% (BldA) [Mass fraction] 99 % Manisha Tari Other [facility] Other 06-11-2023 15:30-0400 Systolic blood pressure 126 mm[Hg] Manisha Tari Other [facility] Other 05-06-2023 13:40-0400 Body height 162.56 cm Casandra Hassan Other [facility] Other 05-06-2023 13:40-0400 Body mass index (BMI) [Ratio] 53.65 kg/m2 Casandra Hassan Other [facility] Other 05-06-2023 13:40-0400 Body temperature 98.4 [degF] Casandra Hassan Other [facility] Other 05-06-2023 13:40-0400 Body weight 141.8 kg Casandra Hassan Other [facility] Other 05-06-2023 13:40-0400 Diastolic blood pressure 81 mm[Hg] Casandra Hassan Other [facility] Other 05-06-2023 13:40-0400 Respiratory rate 18 /min Casandra Hassan Other [facility] Other 05-06-2023 13:40-0400 SaO2% (BldA) [Mass fraction] 95 % Casandra Sonya Other [facility] Other 05-06-2023 13:40-0400 Systolic blood pressure 134 mm[Hg] Casandra Sonya Other [facility] Other 04-30-2023 08:30-0400 Body height 162.56 cm Manisha Marc Other [facility] Other 04-30-2023 08:30-0400 Body mass index (BMI) [Ratio] 53.86 kg/m2 Manisha Marc Other [facility] Other 04-30-2023 08:30-0400 Body weight 142.34 kg Manisha Marc Other [facility] Other 04-30-2023 08:30-0400 Diastolic blood pressure 82 mm[Hg] Manisha Marc Other [facility] Other 04-30-2023 08:30-0400 SaO2% (BldA) [Mass fraction] 100 % Manisha Marc Other [facility] Other 04-30-2023 08:30-0400 Systolic blood pressure 120 mm[Hg] Manisha Marc Other [facility] Other 04-29-2023 07:00-0400 Body height 162.56 cm Nely Cruz Other [facility] Other 04-29-2023 07:00-0400 Body mass index (BMI) [Ratio] 54.41 kg/m2 Nely [employer] Other [facility] Other 04-29-2023 07:00-0400 Body weight 143.79 kg Nely Salmont Other [facility] Other 03-25-2023 13:45-0400 Body height 162.56 cm Celio Mullins Other [facility] Other 03-25-2023 13:45-0400 Body mass index (BMI) [Ratio] 55.45 kg/m2 Celio Mullins Other [facility] Other 03-25-2023 13:45-0400 Body weight 146.56 kg Celio Mullins Other [facility] Other 03-25-2023 13:45-0400 Diastolic blood pressure 57 mm[Hg] Celio Mullins Other [facility] Other 03-25-2023 13:45-0400 Respiratory rate 18 /min Celio Mullins Other [facility] Other 03-25-2023 13:45-0400 SaO2% (BldA) [Mass fraction] 97 % Celio [employer] Other [facility] Other 03-25-2023 13:45-0400 Systolic blood pressure 106 mm[Hg] Celio [employer] Other [facility] Other 02-11-2023 12:15-0400 Body height 163.83 cm Casandra Hassan Other [facility] Other 02-11-2023 12:15-0400 Body mass index (BMI) [Ratio] 54.88 kg/m2 Casandra Sonya Other [facility] Other 02-11-2023 12:15-0400 Body temperature 98 [degF] Casandra Sonya Other [facility] Other 02-11-2023 12:15-0400 Body weight 147.33 kg Casandra Sonya Other [facility] Other 02-11-2023 12:15-0400 Diastolic blood pressure 85 mm[Hg] Casandramila Hassan Other [facility] Other 02-11-2023 12:15-0400 Respiratory rate 18 /min Casandra Sonya Other [facility] Other 02-11-2023 12:15-0400 SaO2% (BldA) [Mass fraction] 98 % Casandra Sonya Other [facility] Other 02-11-2023 12:15-0400 Systolic blood pressure 128 mm[Hg] Casandra Hassan Other [facility] Other 07-13-2022 11:15-0500 Body height 163.83 cm Michelle Ernandez Other [facility] Other 07-13-2022 11:15-0500 Body mass index (BMI) [Ratio] 51.54 kg/m2 Michelle Ernandez Other [facility] Other 07-13-2022 11:15-0500 Body temperature 96.6 [degF] Michelle Ernandez Other [facility] Other 07-13-2022 11:15-0500 Body weight 138.35 kg Michelle Ernandez Other [facility] Other 07-13-2022 11:15-0500 Respiratory rate 18 /min Michelle Haynesmond Other [facility] Other 07-13-2022 11:15-0500 SaO2% (BldA) [Mass fraction] 96 % Michelle Oma Other [facility] Other 07-06-2021 13:00-0500 Body height 163.83 cm Michelle Haynesmond Other [facility] Other 07-06-2021 13:00-0500 Body mass index (BMI) [Ratio] 49 kg/m2 Michelle Oma Other [facility] Other 07-06-2021 13:00-0500 Body temperature 97.5 [degF] Michelle Haynesmond Other [facility] Other 07-06-2021 13:00-0500 Body weight 131.54 kg Michelle Oma Other [facility] Other 07-06-2021 13:00-0500 SaO2% (BldA) [Mass fraction] 96 % Michelle Oma Other [facility] Other 06-17-2021 11:00-0400 Body height 163.83 cm Michelle Oma Other [facility] Other 06-17-2021 11:00-0400 Body mass index (BMI) [Ratio] 49.68 kg/m2 Michelle Oma Other [facility] Other 06-17-2021 11:00-0400 Body temperature 98.3 [degF] Michelle Oma Other [facility] Other 06-17-2021 11:00-0400 Body weight 133.36 kg Michelle Oma Other [facility] Other 06-17-2021 11:00-0400 Respiratory rate 18 /min Michelle Oma Other [facility] Other 06-17-2021 11:00-0400 SaO2% (BldA) [Mass fraction] 96 % Michelle Oma Other [facility] Other 05-31-2021 13:50-0400 Body height 163.83 cm Michelle Oma Other [facility] Other 05-31-2021 13:50-0400 Body mass index (BMI) [Ratio] 50.36 kg/m2 Michelle Oma Other [facility] Other 05-31-2021 13:50-0400 Body temperature 97.8 [degF] Michelle Oma Other [facility] Other 05-31-2021 13:50-0400 Body weight 135.17 kg Michelle Oma Other [facility] Other 05-31-2021 13:50-0400 Diastolic blood pressure 90 mm[Hg] Michelle Oam Other [facility] Other 05-31-2021 13:50-0400 Respiratory rate 18 /min Michelle Oma Other [facility] Other 05-31-2021 13:50-0400 SaO2% (BldA) [Mass fraction] 98 % Michelle Ernandez Other [facility] Other 05-31-2021 13:50-0400 Systolic blood pressure 150 mm[Hg] Michelle Haynesmond Other [facility] Other Encounters Encounter Date Encounter Type Care Provider Facility Start: 03-22-2025 End: 03-22-2025 ambulatory Manisha Marc APRN Work Phone: [facility] Work Phone: Start: 03-22-2025 End: 03-22-2025 Patient encounter procedure Manisha Marc APRN [facility] Work Phone: Start: 03-11-2025 End: 03-11-2025 ambulatory Manisha Marc APRN Work Phone: [facility] Work Phone: Start: 03-11-2025 End: 03-11-2025 Patient encounter procedure Casandra Martin CHANGE MANAGEMENT LEAD -[facility] Work Phone: Start: 03-03-2025 End: 03-03-2025 ambulatory Manisha Marc APRN Work Phone: [facility] Work Phone: Start: 03-03-2025 End: 03-03-2025 Patient encounter procedure Syed Leonard MD -[facility] Work Phone: Start: 03-02-2025 ambulatory Edward Richey acility:[facility] Start: 03-02-2025 Registered Recurring Kevyn Gilmore MD -[facility] Start: 02-28-2025 End: 02-28-2025 ambulatory Bud Combs MD Facility: [facility] Start: 02-22-2025 End: 02-22-2025 ambulatory Manisha Marc APRN Work Phone: [facility] Work Phone: Start: 02-22-2025 End: 02-22-2025 Patient encounter procedure Sakina Chitra Real CHANGE MANAGEMENT LEAD -[facility] Work Phone: Start: 02-22-2025 Registered Recurring Kevyn SORENSEN [facility] Start: 02-17-2025 End: 02-17-2025 Departed Referred Manisha Marc APRN BUILDING STONECUTTER -[facility] Work Phone: Start: 02-17-2025 End: 02-17-2025 ambulatory Manisha Marc APRN Work Phone: [facility] Work Phone: Start: 02-17-2025 End: 02-17-2025 Patient encounter procedure Manisha Marc APRN BUILDING STONECUTTER -[facility] Work Phone: Start: 02-16-2025 Registered Recurring Kevyn SORENSEN [employer] Start: 02-08-2025 Registered Recurring Kevyn SORENSEN [employer] Start: 01-24-2025 End: 01-24-2025 ambulatory Bud Combs MD Facility: [facility] Start: 12-28-2024 Non-patient / Non-visit Tiffanie buck MD -[facility] Work Phone: Start: 11-30-2024 End: 11-30-2024 ambulatory MELA ANDERSON Not Available Start: 11-15-2024 End: 11-15-2024 ambulatory Manisha Marc APRN Work Phone: [facility] Work Phone: Start: 11-15-2024 End: 11-15-2024 Patient encounter procedure Manisha Marc APRN Work Phone: [facility] Work Phone: Start: 11-10-2024 End: 11-10-2024 ambulatory CONSUELO LOVE Not Available Start: 11-09-2024 Registered Recurring Manisha Tari CHANGE MANAGEMENT LEAD Work Phone: [facility] Start: 11-03-2024 Non-patient / Non-visit Sherry sudheer Marc CHANGE MANAGEMENT LEAD Work Phone: [facility] Work Phone: Start: 11-03-2024 End: 11-03-2024 Patient encounter procedure Marko Celestina DO Work Phone: [facility] Work Phone: Start: 11-03-2024 End: 11-03-2024 Periodic preventive med est patient 18-39 yrs Marko Celestina DO Work Phone: [facility] Comment on above: Well woman exam with routine gynecological exam; Exposure to STD; Vaginal discharge; Missed menses; PCOS (polycystic ovarian syndrome); Vaginal itching Start: 11-03-2024 End: 11-03-2024 ambulatory MARKO GIVENSO Not Available Start: 10-12-2024 Non-patient / Non-visit Sherry sudheer Marc CHANGE MANAGEMENT LEAD Work Phone: [facility] Work Phone: Start: 09-27-2024 End: 09-27-2024 ambulatory PHYSICIAN NO [facility] Work Phone: Start: 09-27-2024 End: 09-27-2024 Patient encounter procedure PHYSICIAN NO [facility] Work Phone: Start: 08-28-2024 End: 08-28-2024 ambulatory PHYSICIAN NO [facility] Work Phone: Start: 08-28-2024 End: 08-28-2024 Patient encounter procedure PHYSICIAN NO [facility] Work Phone: Start: 08-27-2024 Registered Recurring PHYSICIAN NO [facility] Start: 08-24-2024 Registered Recurring PHYSICIAN NO [facility] Start: 08-24-2024 Immune system finding Manisha Macr APRN Work Phone: [facility] Start: 08-24-2024 Patient encounter status Manisha Tari JANEN Work Phone: [facility] Start: 08-24-2024 End: 08-24-2024 ambulatory Manisha Tari JANEN Work Phone: [facility] Work Phone: Start: 08-24-2024 End: 08-24-2024 Encounter for antibody response examination Manisha Tari BECKER Work Phone: [facility] Start: 08-24-2024 End: 08-24-2024 Encounter for general adult medical examination without abnormal findings Manishawilfredo Marc APRN Work Phone: [facility] Start: 08-24-2024 End: 08-24-2024 Patient encounter procedure Manishawilfredo Marc APRN Work Phone: [facility] Work Phone: Start: 08-19-2024 Non-patient / Non-visit Heavenmaura sudheer Marc APRN Work Phone: [facility] Work Phone: Start: 08-19-2024 End: 08-19-2024 Admission to same day surgery center Manisha Tari JANEN Work Phone: [facility] Work Phone: Start: 08-19-2024 End: 08-19-2024 ambulatory Manisha Marc APRN Work Phone: [facility] Work Phone: Start: 08-16-2024 End: 08-16-2024 Bamboo flowsheet Consuelo Love DENTAL MOLD MAKER Work Phone: [facility] [address] Start: 08-16-2024 End: 08-16-2024 Bamboo flowsheet Consuelo Love DENTAL MOLD MAKER Work Phone: [facility] [address] Start: 08-16-2024 End: 08-16-2024 ambulatory CONSUELO LOVE Not Available Start: 08-16-2024 End: 08-16-2024 Office outpatient visit 15 minutes Consuelo Love DENTAL MOLD MAKER [facility] Comment on above: Cognitive dysfunctio n (Primary Dx); ALEXX (obstructive sleep apnea); Attention deficit hyperactivity disorder (ADHD), unspecified ADHD type (CMS/HCC); Severe anxiety; Severe episode of recurrent major depressive disorder, without psychotic features (HCC) (CMS/HCC); Bipolar affective disorder, remission status unspecified (CMS/HCC); Episodic migraine (CMS/HCC) Start: 08-09-2024 End: 08-09-2024 ambulatory PHYSICIAN NO FAMILY Facility:[facility] Start: 08-09-2024 End: 08-09-2024 Departed Referred Manisha Marc APRN Work Phone: [facility] [place] Work Phone: Start: 08-09-2024 End: 08-09-2024 Patient encounter procedure Manisha Marc APRN Work Phone: [facility] Work Phone: Start: 08-03-2024 Registered Recurring Manisha Marc APRN Work Phone: [facility] Start: 07-12-2024 End: 07-12-2024 Patient encounter procedure Mario Mcknight PhD Work Phone: [facility] Comment on above: ADHD (attention defi cit hyperactivity disorder), inattentive type (CMS/HCC) (Primary Dx); ALEXX (obstructive sleep apnea); Bipolar affective disorder, remission status unspecified (CMS/HCC); Other chronic pain; Severe anxiety; Severe episode of recurrent major depressive disorder, without psychotic features (HCC) (CMS/HCC) Start: 07-12-2024 End: 07-12-2024 ambulatory MELA ANDERSON Not Available Start: 06-29-2024 Non-patient / Non-visit Sherry Marc APRN Work Phone: [facility] Work Phone: Start: 06-28-2024 End: 06-28-2024 Tony Mcknight PhD Work Phone: [facility] Start: 06-28-2024 End: 06-28-2024 Tony Mcknight PhD Work Phone: [facility] Start: 06-28-2024 End: 06-28-2024 Patient encounter procedure Mario Mcknight PhD Work Phone: [facility] Comment on above: ADHD (attention defi cit hyperactivity disorder), inattentive type (CMS/HCC) (Primary Dx); Cognitive impairment; ALEXX (obstructive sleep apnea); Bipolar affective disorder, remission status unspecified (CMS/HCC); Other chronic pain Start: 06-28-2024 End: 06-28-2024 ambulatory MARIO MCKNIGHT Not Available Start: 06-25-2024 End: 06-25-2024 Departed Referred Manisha Marc APRN Work Phone: [facility] [place] Work Phone: Start: 06-25-2024 End: 06-25-2024 ambulatory Manisha Marc APRN Work Phone: [facility] Work Phone: Start: 06-25-2024 End: 06-25-2024 Patient encounter procedure Manisha Marc APRN Work Phone: [facility] Work Phone: Start: 06-23-2024 ambulatory Facility:[facility] Start: 06-23-2024 End: 06-23-2024 Bamboo flowsheet Christopher Kenny DO Work Phone: [facility] [address] Start: 06-23-2024 End: 06-23-2024 Bamboo flowsheet Christopher Kenny DO Work Phone: [facility] [address] Start: 06-23-2024 End: 06-23-2024 Office outpatient new 45 minutes Christopher Kenny DO Work Phone: [facility] [employer] [address] Comment on above: Cognitive impairment (Primary Dx); Anxiety Start: 06-23-2024 End: 06-23-2024 ambulatory GWEN COX Not Available Start: 06-21-2024 End: 06-21-2024 ambulatory ROSITA Marc Work Phone: [facility] Work Phone: Start: 06-21-2024 End: 06-21-2024 Patient encounter procedure ROSITA Marc Work Phone: [facility] Work Phone: Start: 06-18-2024 Non-patient / Non-visit ROSITA Marc Work Phone: [facility] Work Phone: Start: 06-15-2024 End: 06-15-2024 Departed Referred ROSITA Marc Work Phone: [facility] [place] Work Phone: Start: 06-15-2024 End: 06-15-2024 ambulatory ROSITA Marc Work Phone: [facility] Work Phone: Start: 06-15-2024 End: 06-15-2024 Patient encounter procedure CHANGE MANAGEMENT LEAD Manisha Denyrbacher Work Phone: [facility] Work Phone: Start: 06-07-2024 Non-patient / Non-visit CHANGE MANAGEMENT LEAD Toshia lorenzo Denyrbacher Work Phone: [facility] Work Phone: Start: 05-13-2024 Registered Recurring CHANGE MANAGEMENT LEAD Layla axel Denyrbacher Work Phone: [facility] Start: 04-21-2024 End: 04-21-2024 ambulatory CHANGE MANAGEMENT LEAD Manisha Diyar Work Phone: [facility] Work Phone: Start: 04-21-2024 End: 04-21-2024 Patient encounter procedure CHANGE MANAGEMENT LEAD Manisha Diyar Work Phone: [facility] Work Phone: Start: 04-15-2024 Non-patient / Non-visit CHANGE MANAGEMENT LEAD Toshia lorenzo Denyrbacher Work Phone: [facility] Work Phone: Start: 04-12-2024 Non-patient / Non-visit CHANGE MANAGEMENT LEAD Toshia lorenzo Denyrbacher Work Phone: [facility] Work Phone: Start: 04-03-2024 Registered Recurring CHANGE MANAGEMENT LEAD Layla axel Charlyacher Work Phone: [facility] Start: 03-16-2024 End: 03-16-2024 ambulatory MELA JUSTIN Not Available Start: 01-01-2024 Registered Recurring CHANGE MANAGEMENT LEAD Layla gloriasudheer Parksacher Work Phone: [facility] Start: 11-26-2023 End: 11-26-2023 ambulatory CHANGE MANAGEMENT LEAD Manisha Tari Work Phone: [facility] Work Phone: Start: 11-26-2023 End: 11-26-2023 Patient encounter procedure CHANGE MANAGEMENT LEADBryon Dyer Diyar Work Phone: [facility] Work Phone: Start: 11-03-2023 End: 11-03-2023 ambulatory CHANGE MANAGEMENT LEAD Manisha Diyar Work Phone: [facility] Work Phone: Start: 11-03-2023 End: 11-03-2023 Patient encounter procedure CHANGE MANAGEMENT LEADBryon Dyer Tari Work Phone: [facility] Work Phone: Start: 10-30-2023 Non-patient / Non-visit CHANGE MANAGEMENT LEAD Toshia milaryannamita Keaner Work Phone: [facility] Work Phone: Start: 10-08-2023 End: 10-08-2023 ambulatory CHANGE MANAGEMENT LEAD Manisha Tari Work Phone: [facility] Work Phone: Start: 10-08-2023 End: 10-08-2023 Patient encounter procedure CHANGE MANAGEMENT LEAD Manisha Tari Work Phone: [facility] Work Phone: Start: 10-06-2023 Non-patient / Non-visit CHANGE MANAGEMENT LEAD Toshia bj Keaner Work Phone: [facility] Work Phone: Start: 10-01-2023 End: 10-01-2023 ambulatory CHANGE MANAGEMENT LEAD Manisha Diyar Work Phone: [facility] Work Phone: Start: 10-01-2023 End: 10-01-2023 Patient encounter procedure CHANGE MANAGEMENT LEADBryon ThaoManishaamita Marc Work Phone: [facility] Work Phone: Start: 09-10-2023 Registered Recurring ROSITA castrosudheer Marc Work Phone: [facility] Start: 09-03-2023 End: 09-03-2023 Patient encounter procedure CHANGE MANAGEMENT LEAD Manisha Tari Work Phone: [facility]- Start: 08-19-2023 End: 08-19-2023 ambulatory Nely Fitt Other [facility] Other Start: 08-19-2023 IBT FOR OBESITY GROU P 2-10 30M Nelybryon Cruz [facility] Start: 08-19-2023 Registered Recurring CHANGE MANAGEMENT LEAD Laylabryon Marc Work Phone: [facility] Work Phone: Start: 08-19-2023 End: 08-19-2023 Patient encounter procedure CHANGE MANAGEMENT LEADBryon ThaoManishaamita Marc Work Phone: [facility] Work Phone: Start: 08-14-2023 Registered Recurring CHANGE MANAGEMENT LEAD Laylabryon Marc Work Phone: [facility] Start: 08-13-2023 End: 08-13-2023 ambulatory Manisha Marc Other [facility] Other Start: 08-13-2023 Office outpatient vi sit [address] [facility] Start: 08-13-2023 End: 08-13-2023 Patient encounter procedure ROSITA Marc Work Phone: [facility] Work Phone: Start: 07-19-2023 End: 07-19-2023 ambulatory CHANGE MANAGEMENT LEADBryon Marc Work Phone: [facility] Work Phone: Start: 07-19-2023 End: 07-19-2023 Patient encounter procedure ROSITA Marc Work Phone: [facility] Start: 07-15-2023 End: 07-15-2023 ambulatory Celio Mullins Other [facility] Other Start: 07-15-2023 Follow-up encounter Celio Mullins [facility] Start: 07-15-2023 End: 07-15-2023 Patient encounter procedure ROSITA Marc Work Phone: [facility] Work Phone: Start: 07-07-2023 End: 07-07-2023 ambulatory Michelle Ernandez Other [facility] Other Start: 07-07-2023 Office outpatient vi sit 15 minutes Michelle Ernandez [facility] Start: 07-07-2023 End: 07-07-2023 Patient encounter procedure ROSITA Marc Work Phone: [facility] Work Phone: Start: 07-03-2023 Registered Recurring ROSITA Marc Work Phone: [facility] Start: 07-03-2023 End: 07-03-2023 ambulatory ROSITA Marc Work Phone: [facility] Work Phone: Start: 07-03-2023 End: 07-03-2023 Patient encounter procedure ROSITA Marc Work Phone: [facility] [place] Work Phone: Start: 07-01-2023 End: 07-01-2023 Patient encounter procedure CHANGE MANAGEMENT LEAD Manisha Marc Work Phone: [facility] [place] Work Phone: Start: 06-29-2023 End: 06-29-2023 ambulatory Michelle Haynesmond Other [facility] Other Start: 06-29-2023 Office outpatient vi sit 15 minutes Michelle Oma [facility] Start: 06-17-2023 Registered Recurring CHANGE MANAGEMENT LEAD Layla Marc Work Phone: [facility] Work Phone: Start: 06-11-2023 End: 06-11-2023 ambulatory Manisha Marc Other [facility] Other Start: 06-11-2023 Office outpatient vi sit [address] [facility] Start: 05-06-2023 End: 05-06-2023 ambulatory Casandra Hassan Other [facility] Other Start: 05-06-2023 Office outpatient vi sit 10 minutes Casandra Hassan [facility] Start: 05-01-2023 End: 05-01-2023 ambulatory Manisha Marc Other [facility] Other Start: 05-01-2023 Telephone encounter Manisha Rico her [facility] Start: 04-30-2023 End: 04-30-2023 ambulatory Manisha Marc Other [facility] Other Start: 04-30-2023 Encounter for genera l adult medical examination without abnormal findings Manisha Marc [facility] Start: 04-30-2023 Periodic preventive med est patient 18-39 yrs Manisha Marc [facility] Start: 04-29-2023 ([facility]) WMN Init ial Provider Nely Luis Antoniohari [facility] Start: 04-29-2023 End: 04-29-2023 ambulatory Nely Cruz Other [facility] Other Start: 03-25-2023 End: 03-25-2023 ambulatory Celio Mullins Other [facility] Other Start: 03-25-2023 Nutrition therapy Celio Mullins [facility] Start: 03-25-2023 Telephone encounter Celio Owens [facility] Start: 03-14-2023 End: 03-14-2023 ambulatory Nelybryon Cruz Other [facility] Other Start: 03-14-2023 Telephone encounter Nely Luis Antoniohari [facility] Start: 02-11-2023 End: 02-11-2023 ambulatory Casandra Hassan Other [facility] Other Start: 02-11-2023 Office outpatient vi sit 15 minutes Casandra Hassan [facility] Start: 12-31-2022 End: 01-01-[address] MARKO OSCAR . Facility:[facility]1 Start: 11-26-2022 End: 11-27-[address] MARKO OSCAR . Facility:[facility] Start: 11-08-2022 End: 11-09-[address] THADDEUS ROD Facility:[facility] Start: 10-28-2022 End: 10-28-[address] MARKO OSCAR . Facility:[facility] Start: 07-13-2022 End: 07-13-2022 ambulatory Michelle Ernandez Other [facility] Other Start: 07-13-2022 Office outpatient vi sit 15 minutes Michelle Ernandez [facility] Start: 03-07-2022 End: 03-08-[address] THADDEUS ROD Facility:[facility]1 Start: 01-25-2022 Encounter for genera l adult medical examination without abnormal findings DR THADDEUS ROD [facility] Start: 01-21-2022 End: 01-22-[address] THADDEUS ROD Facility:[facility] Start: 01-21-2022 End: 01-22-2022 Encounter for general adult medical examination without abnormal findings DR THADDEUS ROD Facility:[facility] Start: 07-06-2021 End: 07-06-2021 ambulatory Michelle Ernandez Other [facility] Other Start: 07-06-2021 Office outpatient vi sit 15 minutes Michelle Oma [facility] Start: 06-17-2021 Office outpatient vi sit 15 minutes Michelle Oma [facility] Start: 05-31-2021 Office outpatient vi sit 25 minutes Michelle Oma [facility] Start: 08-27-2018 End: 08-27-2018 ambulatory BRENT KINNEY Facility:[facility] Procedures Date Procedure Procedure Detail Performing Clinician Start: 02-17-2025 Urine culture Manisha Marc APRN Work Phone: Start: 11-03-2024 Urine test visual color cmprsn [...] Work Phone: Start: 10-08-2023 MRI of head CHANGE MANAGEMENT LEAD Manisha Barclayaustintad Work Phone: Start: 05-31-2021 Piperacillin/tazobactam Michelle Ernandez Other Start: 08-27-2018 extraction, erupted tooth or exposed root (elevation and/or forceps removal) BRENT TROCONIS Start: 08-27-2018 removal of impacted tooth - soft tissue BRENT TROCONIS Start: 08-27-2018 Urine test visual color cmprsn meths BRENT TROCONIS Plan of Treatment Date Care Activity Detail Author Start: 10-29-2027 Screening for malign ant neoplasm of cervix [facility] Start: 11-02-2026 Screening for malign ant neoplasm of cervix Pap Smear [facility] Start: 11-09-2025 End: 11-09-2025 Patient encounter procedure 11/09/2025 3:00 PM EDT Office Visit [facility] [address] [place] [address] Marko Oscar, DO [address] [place], [place] [id number] [facility] Start: 02-17-2025 Bacteria identified in Urine by Culture Urine Culture [facility] Start: 02-17-2025 Patient referral [facility] Work Phone: Start: 02-17-2025 Urine culture [facility] Start: 11-30-2024 End: 11-30-2024 Professional / ancillary services management 11/30/2024 1:00 PM EDT Ancillary Procedure [facility] [address] [place] [address] [facility] Start: 11-09-2024 End: 11-09-2024 Patient encounter procedure [facility] Start: 11-03-2024 End: 11-03-2025 US Pelvis US Pelvis w/ TV Imaging Routine PCOS (polycystic ovarian syndrome) Expected: 11/03/2024, Expires: 11/03/2025 [facility] Comment on above: Expected: 11/03/2024 , Expires: 11/03/2025 Start: 11-02-2024 End: 11-02-2024 Patient encounter procedure 11/02/2024 11:00 AM EDT Office Visit [facility] [address] [place] [phone] Marko Oscar DO [address] [place] [address] [facility] Start: 08-19-2024 [facility] Start: 08-16-2024 End: 08-16-2024 Patient encounter procedure 08/16/2024 11:20 AM EST Office Visit [facility] [place] [address] [place] [phone] Consuelo Love NP [address] [place] [id number] [facility] [place] [facility] Start: 07-12-2024 End: 07-12-2024 Patient encounter procedure 07/12/2024 8:00 AM EST [facility] [address] [place] [phone] [facility] Start: 06-28-2024 End: 06-28-2024 Patient encounter procedure [facility] Comment on above: Cognitive impairment Start: 06-25-2024 Bacteria identified in Urine by Culture Urine Culture [facility] Start: 06-25-2024 Urine culture [facility] Start: 06-23-2024 End: 06-23-2024 Patient encounter procedure 06/23/2024 12:30 PM EST Office Visit [facility] [place] [address] [place] [address] Gwen Cox, [address] [place], [place] [id number] Arrived [facility] [place] [facility] Comment on above: Arrived Start: 06-21-2024 Patient referral [facility] Work Phone: Start: 06-15-2024 Bacteria identified in Urine by Culture Urine Culture [facility] Start: 06-15-2024 [facility] Start: 06-15-2024 Urine culture [facility] Start: 04-18-2024 Influenza vaccination Influenza Vacc ine (#1) [facility] CHLAMYDIA TRACHOMATI S (GENITO/STI) CHLAMYDIA TRACHOMATIS (GENITO/STI) Lab Routine Exposure to STD Ordered: 11/03/2024 [facility] Comment on above: Ordered: 11/03/2024 Chlamydia trachomati s DNA [Presence] in Unspecified specimen by SURI with probe detection [facility] Comprehensive metabo lic 1999 panel - Serum or Plasma [facility] Comprehensive metabo lic 1999 panel - Serum or Plasma [facility] CT Neck W contrast IV [facility] Cytology Cervical or vaginal smear or scraping study Pap Smear Pathology and Cytology Routine Well woman exam with routine gynecological exam Ordered: 11/03/2024 [facility] Work Phone: Comment on above: Ordered: 11/03/2024 Holter monitor study [facility] Human papilloma viru s DNA [Presence] in Unspecified specimen by Probe with amplification HPV DNA probe, amplified Microbiology Routine Well woman exam with routine gynecological exam Ordered: 11/03/2024 [facility] Comment on above: Ordered: 11/03/2024 MR Unspecified body region [facility] Neisseria gonorrhoea e DNA [Presence] in Unspecified specimen by SURI with probe detection [facility] Neisseria gonorrhoea e DNA [Presence] in Unspecified specimen by SURI with probe detection Neisseria gonorrhea DNA probe, direct Lab Routine Exposure to STD Ordered: 11/03/2024 [facility] Comment on above: Ordered: 11/03/2024 Patient Education [facility] Work Phone: Patient referral [facility] Work Phone: SURESWAB(R) ADVANCED VAGINITIS PLUS, TMA SURESWAB(R) ADVANCED VAGINITIS PLUS, TMA Pathology and Cytology Routine Vaginal discharge Ordered: 11/03/2024 [facility] Comment on above: Ordered: 11/03/2024 Trichomonas vaginali s DNA [Presence] in Unspecified specimen by SURI with probe detection [facility] Urine culture [facility] Immunizations Immunization Date Immunization Notes Care Provider Lillie rogers 03-03-2021 Do not use COVID-19 Pfizer 2 dose Manisha Denyrbacher Other [facility] 02-10-2021 Do not use COVID-19 Pfizer 2 dose Manisha Rohrbacher Other [facility] 08-03-2018 Toradol per 15 mg Michelle Dym ond Other [facility] Other Payers Date Payer Category Payer Self-pay [id number] 2022 Private Health Insurance [id number] 1991 Unknown [id number] 2.840.1.430336.3.579.2. 732 1991 Unknown [id number] 2.840.1.653837.3.579.2. 593 1991 Unknown [id number] 2.1.746359.3.579.2. 593 1991 Unknown [id number] 2.840.1.901115.3.579.2. 593 1991 Unknown [id number] 2.840.1.034801.3.579.2. 593 1991 Unknown [id number] 2.840.1.794367.3.579.2. 593 1991 Unknown [id number] 2.840.1.412897.3.579.2. 593 1991 Unknown [id number] 2.16.840.1.767806.3.579.2. 9 1991 Unknown [id number] 2.16.840.1.201918.3.579.2. 1258 1991 Unknown [id number] 2.16.840.1.425004.3.579.2. 9 1991 Unknown [id number] 2.16.840.1.231373.3.579.2. 1258 1991 Unknown [id number] 2.16.840.1.944974.3.579.2. 1258 1991 Unknown [id number] 2.16.840.1.951947.3.579.2. 1258 1991 Unknown [id number] 2.16.840.1.341651.3.579.2. 1258 1991 Unknown [id number] 2.16.840.1.963190.3.579.2. 1258 1991 Unknown [id number] 2.16.840.1.125261.3.579.2. 196 1991 Unknown [id number] 2.16.840.1.220875.3.579.2. 196 1958 Medicaid [id number] 1959 Unknown [id number] Unknown [place] [id number] Unknown [id number] 2.16.840.1.072921.3.579.2. 531 Unknown [id number] 2.16.840.1.470770.3.579.2. 531 Unknown [id number] 2.16.840.1.663601.3.579.2. 531 Unknown [id number] 2.16.840.1.457699.3.579.2. 531 Unknown [id number] 2.16.840.1.247943.3.579.2. 531 Unknown [id number] 2.16.840.1.575297.3.579.2. 531 Social History Date Type Detail Facility Unknown if ever smoked [facility] Contacts+ Other Start: 03-11-2023 End: 03-16-2024 Sex Assigned At [facility] [employer] Other Start: 12-07-2021 End: 03-11-2025 Tobacco smoking status NHIS Never smoked tobacco (finding) [facility] Start: 1990 Sex Assigned At Female F [facility] Start: 05-31-2024 End: 11-03-2024 Alcoholic beverage intake Not Asked [facility] Start: 07-24-2023 End: 03-16-2024 History of Social function [facility] Start: 03-11-2023 Gender identity Identifies as female gender (finding) [facility] Start: 06-25-2024 End: 11-15-2024 Sex Female (finding) [facility] Goals Date Patient Goal Desired Activity /State Clinical Notes 05-31-2021 to 02-17-2025 Note Date & Type Note Facility 02-17-2025 Evaluation note Diagnosis Onset Date Resolution Degenerative lumbar disc acute February 17, 2025 10:53am Food insecurity acute February 17, 2025 10:53am Insulin resistance acute February 172024 10:53am Morbid obesity acute February 17, 2025 10:53am Prediabetes acute February 17 10:53am UTI (urinary tract infection) acute February 17, 2025 10:53am [facility] Work Phone: 1(132) 666-574707-03-2025 Evaluation note* Diagnosis Onset Date Resolution Status Admit Date Communication deficit acute Feb 10:53am Degenerative lumbar disc acute February 17, 2025 10:53am Food insecurity acute February 17, 2025 10:53am Impaired social interaction acute February 17, 2025 10:53am Insulin resistance acute February 172024 10:53am Morbid obesity acute February 17, 2025 10:53am Prediabetes acute February 17 10:53am UTI (urinary tract infection) acute February 17, 2025 10:53am [facility] Work Phone: 1(187) 766-276307-03-2025 Evaluation note* Diagnosis Onset Date Resolution Status Admit Date Communication deficit acute Feb 10:53am Degenerative lumbar disc acute February 17, 2025 10:53am Food insecurity acute February 17, 2025 10:53am Impaired social interaction acute February 17, 2025 10:53am Insulin resistance acute February 172024 10:53am Morbid obesity acute February 17, 2025 10:53am Prediabetes acute February 17 10:53am UTI (urinary tract infection) acute February 17, 2025 10:53am Reaction, drug, adverse noneactive J humaira 2024 4:45pm [facility] Work Phone: [phone] Evaluation note* Diagnosis Onset Date Resolution Status Admit Date Communication deficit acute Feb 10:53am Degenerative lumbar disc acute February 17, 2025 10:53am Food insecurity acute February 17, 2025 10:53am Impaired social interaction acute February 17, 2025 10:53am Insulin resistance acute February 172024 10:53am Morbid obesity acute February 17, 2025 10:53am Prediabetes acute February 17 10:53am UTI (urinary tract infection) acute February 17, 2025 10:53am Reaction, drug, adverse noneactive J humaira 2024 4:45pm Spondylosis of lumbar region without myelopathy or radiculopathy acute March 03, 2025 10:06am [facility] Work Phone: [phone] Evaluation note* Diagnosis Onset Date Resolution Status Admit Date Communication deficit acute Feb 10:53am Degenerative lumbar disc acute February 17, 2025 10:53am Food insecurity acute February 17, 2025 10:53am Impaired social interaction acute February 17, 2025 10:53am Insulin resistance acute February 172024 10:53am Morbid obesity acute February 17, 2025 10:53am Prediabetes acute February 17 10:53am UTI (urinary tract infection) acute February 17, 2025 10:53am Reaction, drug, adverse noneactive J humaira 2024 4:45pm Spondylosis of lumbar region without myelopathy or radiculopathy acute March 03, 2025 10:06am Pruritus of scalp acute March 112024 12:07pm Hypertension acute March 22, 2025 7:59am Insulin resistance acute March 22, 2025 7:59am Palpitations acute March 22, 2025 7:59am Prediabetes acute March 22, 2 025 7:59am Unable to lose weight acute Mar us2024 7:59am Vitamin B12 deficiency acute [place] 2024 7:59am Vitamin D deficiency acute [place] [address] 2024 7:59am [facility] Work Phone: 1(775) 565-867107-01-2025 Evaluation note* Diagnosis Onset Date Resolution Status Admit Date Degenerative lumbar disc acute February 17, 2025 10:53am Food insecurity acute February 17, 2025 10:53am Insulin resistance acute February 172024 10:53am Morbid obesity acute February 17, 2025 10:53am Prediabetes acute February 17 10:53am UTI (urinary tract infection) acute February 17, 2025 10:53am [facility] Work Phone: 1(695) 338-478203-19-2025 History of Present illness Narrative* Cici Lake, ELECTRICIAN MASTER - 11/03/2024 3:20 PM EDT Reason for Appointment: Patient ID: Ashly Mehta [...] Disorder of endocrine system 02/11/2023 Essential hypertension ([facility]/HCC) 02/11/2023 Herpes simplex of female genitalia 02/11/2023 Menorrhagia 02/11/2023 Morbid obesity ([facility]/HCC) 02/11/2023 Pain in female genitalia on intercourse 02/11/2023 Polycystic ovaries 02/11/2023 Secondary amenorrhea 02/11/2023 Anemia 02/11/2023 Hematuria, microscopic 06/03/2018 Recurrent urinary tract infection 06/03/2018 Neuropathy 05/31/2024 Carpal tunnel syndrome of right wrist 05/31/2024 Paresthesia of skin 05/31/2024 Seizure disorder ([facility]/HCC) 05/31/2024 Bipolar affective disorder ([facility]) 05/31/2024 Resolved Ambulatory Problems Diagnosis Date Noted No Resolved Ambulatory Problems Past Medical History: Diagnosis Date Abnormal Pap smear of cervix Abnormal uterine bleeding (AUB) ADHD (attention deficit hyperactivity disorder) ([facility]) Anxiety Asthma ([facility]) Benign essential HTN ([facility]/HCC) Bipolar 2 disorder ([facility]/HCC) Chronic cystitis Coitus painful for female Depression ([facility]/HCC) Dysthymia ([facility]) Genital herpes in women GERD (gastroesophageal reflux disease) Hormone imbalance Hypertension ([facility]/HCC) Hypertension (CMS/HCC) Infertility, female Lumbar spondylolysis Memory changes Morbid obesity with BMI of 50.0-59.9, adult ([facility]) Pain of ovary PCOS (polycystic ovarian syndrome) Pre-diabetes Right ovarian cyst Seasonal affective disorder ([facility]/HCC) Sleep apnea Tachycardia HISTORY PAST MEDICAL HISTORY SOCIAL HISTORY Past Medical History: Diagnosis Date Abnormal Pap smear of cervix Abnormal uterine bleeding (AUB) Abnormal weight gain ADHD (attention deficit hyperactivity disorder) (CMS/HCC) Anemia Anxiety Asthma (CMS/HCC) Benign essential HTN ([facility]/HCC) Bipolar 2 disorder (CMS/HCC) Chronic cystitis Coitus [...] nursing note reviewed. Exam conducted with a breaker off present. Vitals: Estimated body mass index is [...] of: Marko Oscar DO documented in this encounterHawthorn Children[facility] [id number] Evaluation note* Diagnosis Onset Date Resolution Status Admit Date Encounter for antibody response examination acute August [...] lump in head and neck acute November 15, 2024 1:32pm [facility] Work Phone: 1(413) 693-329801-02-2025 [place] [address] Colonoscopy Procedure Report Signed Patient: Ashly Mehta MR#: [id number] : 1990 Acct:[id number] Age/Sex: 33 / F Adm Date: 5 Loc: Room: Type: [facility] Attending Dr: Hilaria Burgos DO Copies to: DO Manisha Chakraborty, CHANGE MANAGEMENT LEAD, BUILDING STONECUTTER~ Colonoscopy Date/Provider 08/19/2024 Hilaria Burgos DO Narrative [...] slowly withdrawn with the findings as below. [place] bowel prep score was Fair. Findings: The [...] Burgos DO 08/19/24 0859 Signed By: 08/19/[address] [place], [place] 12[address]101-02-2025 Procedure noteFIRELANDS [place] [id number] EGD Procedure Note Signed Patient: Ashly Mehta MR#: [id number] : 1990 Acct:[id number] Age/Sex: 33 / F Adm Date: Loc: Room: Type: [facility] Attending Dr: Hilaria Burgos DO Copies to: DO Manisha Chakraborty APRN, BUILDING STONECUTTER~ Esophagogastroduodenoscopy Date/Provider Date: 08/19/2024 Hilaria Burgos DO [...] DO 08/19/24 0859 Signed By: 08/19/24 1009 [facility]01-02-2025 [place] [address] Gastroenterology H&P Signed Patient: Ashly Mehta MR#: [id number] : 1990 Acct:[id number] Age/Sex: 33 / F Adm Date: 5 Loc: Room: Type: [facility] Attending Dr: Hilaria Burgos DO Copies to: DO Manisha Chakraborty APRN, BUILDING STONECUTTER~ Date of Service: 08/19/2024 HISTORY & PHYSICAL: [...] DO 08/19/24 0859 Signed By: 08/19/24 0954 [facility]12-30-2024 History of Present illness Narrative * [...] her psychiatrist plans to get her a casey saw operator soon. The patient reports difficulty maintaining jobs [...] Morbid obesity with BMI of 50.0-59.9, adult ([facility]) Pain of ovary PCOS (polycystic ovarian syndrome) [...] wrist extensors , wrist flexor , and plumber maintenance strength 5/5. LUE strength deltoid , biceps , triceps , wrist extensors , wrist flexor , and plumber maintenance strength 5/5. RLE strength iliopsoas, quadriceps, tibialis [...] reflex 2+. LLE knee reflex 2+. Coordination: Xsxrdy-xp-safe testing normal. Rapid alternating movements are normal. Gait: Normal. Review and summary of old records: Neuropsychological evaluation at [facility] on 07/12/2024: Current neuropsychologicalevaluation demonstrates, [...] her psychiatrist to establish care with a casey saw operator, and I believe this is a good [...] NP [facility] documented in this encounterHawthorn Children's Psychiatric [id number] Evaluation note* Diagnosis Onset Date Resolution Status [...] Wellness examination acute Al campuzano 2024 10:57am Cellulitis acute August 28, 2024 1:44pm [facility] Work Phone: 1([phone] 280-629311-25-2024 History of Present illness Narrative* Mario Mcknight, [...] stress). Neurological history includes work-related concussion in . Brain MRI unremarkable. Normal memory labs. Strong family history of ADHD and mental health issues. Psychiatric history includes bipolar II disorder. Meets with psychiatry and therapy. Denied any history of alcohol/substance abuse or smoking. [place] language [place]. Completed an associate's degree and was 24 credits shy of a bachelor's degree. Struggled academically and with attention. 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 Responsible for tending to the needs [...] design >16th %ile. Motor/Speed of Processing: Right-handed. Identity Management Developer strength 24th %ile with right- hand, 62nd [...] Learning of a word list 31st %ile (3-2-37-13-13), delayed recall 16th %ile. Recognition discriminability 69th [...] of this individual. Please contact me with [employer] at [phone]. [facility] History of Present illness Narrative* Mario Mcknight, [...] alcohol/substance abuse or smoking. [place] language German. Completed an associate's degree and was 24 credits shy of a bachelor's degree. Struggled academically and with attention. 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 Responsible for tending to the needs [...] of this individual. Please contact me with [employer] at [phone]. documented in this encounterHawthorn Children's Psychiatric [id number] History of Present illness Narrative* Gwen Cox, [...] , wrist extensors , wrist flexor , plumber maintenance strength 5/5. LUE Strength deltoid , biceps , triceps , wrist extensors , wrist flexor , plumber maintenance strength 5/5. RLE Strength illopsoas, quadriceps, tibialis [...] reflex 2+ . Valiente's sign negative. Coordination: Bzbfdq-cx-uarn testing and rapid alternating movements are normal [...] plan, and return instructions documented in this encounterHawthorn Children's Psychiatric [id number] Evaluation note* Diagnosis Onset Date Resolution Status Admit Date Acute UTI acute June 15, 2024 9:22am Fatty liver disease, nonalcoholic acute June 21 11:13am Frequent UTI acute June 11:13am Obstructive sleep apnea acute N ovember 2023 11:13am UTI (urinary tract infection) acute June 21, 2024 11:13am Dysuria acute June 25, 2024 9:05am Dysuria acute August 09, 2024 3:46pm Excessive sweating acute [facility] er 2023 3:46pm [facility] Work Phone: 1([phone] 190-863310-29-2024 Evaluation note* Diagnosis Onset Date Resolution Status Admit Date Acute UTI acute June 15, 2024 9:22am Fatty liver disease, nonalcoholic acute June 21 11:13am Frequent UTI acute June 11:13am Obstructive sleep apnea acute N ov2023 11:13am UTI (urinary tract infection) acute June 21, 2024 11:13am Dysuria acute June 25, 2024 9:05am Dysuria acute August 09, 2024 3:46pm Excessive sweating acute [facility] er 2023 3:46pm Encounter for antibody response examination acute August 10:57am Wellness examination acute Al2024 10:57am Immunization status unknown deleted August 24, 2024 10:57am [facility] Work Phone: 1([phone]) 983-157410-29-2024 Evaluation note* Diagnosis Onset Date Resolution Status [...] Wellness examination acute Al tatianna 2024 10:57am [facility] Work Phone: 1(462) 247-814309-04-2024 Evaluation note* Diagnosis Onset Date Resolution Status [...] tract infection) acute June 21, 2024 11:13am [facility] Work Phone: 1([phone]) 905-935509-04-2024 Evaluation note* Diagnosis Onset Date Resolution Status Admit Date Aphasia acute April 21, 2024 2:29pm Apnea acute April 21, 2024 2:29pm Fatigue acute April 21, 2024 2:29pm History of seizures acute Apre 2023 2:29pm Loud snoring acute April 2:29pm [...] 11:13am Dysuria acute June 25, 2024 9:05am [facility] Work Phone: 1([phone]) 823-482301-02-2024 Evaluation note* Encounter Date Diagnosis Assessment Notes Treatment Notes Treatment Clinical Notes Aug, Obesity, unspecified classification, unspecified obesity type, unspecified whether serious comorbidity present (ICD-10 - E66.9) Aug, BMI 50.0-59.9, adult (ICD-10 - Z68.43) Aug, Other Summary of Visi t: (A) Importnace of planning to simplify meals (B) Deconstructed Meals (C) Sharing meal ideas (D) Plate method for meal planning ; [employer] Other 12-27-2023 Evaluation note* Encounter Date Diagnosis [...] You have been given relevant education handouts. Posterous Other 11-28-2023 Evaluation note* Encounter Date Diagnosis [...] voice recognition software. 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 Jun, Dietary surveillance and counseling (ICD-10 - [...] metformin 1000 mg total daily, managed by [employer]LECT[employer]ACH[employer] Jun, Asthma (ICD-10 - J45.909) Jun, Migraine (ICD-10 - G43.909) Jun, Primary hypertension (ICD-10 - I10) Currently on pharmacotherapy Potential for overtreatment given lightheadedness Jun, Other An additional 9 minutes was spent counseling the patient on behavior modification including proper nutrition and physical activity. Posterous Other 11-20-2023 Evaluation note* Encounter Date Diagnosis [...] until you feel better. You may take [id number] Imodium for diarrhea as needed. Avoid dairy foods as well as greasy fried foods. Follow-up with your physician if no improvement in 2 to 3 days. May return to work on Jun, Diarrhea, unspecified type (ICD-10 - R19.7) Diarrhea: adult home care material was printed Posterous Other 11-12-2023 Evaluation note* Encounter Date Diagnosis [...] to 3-day Jun, Bronchitis (ICD-10 - J40) Posterous Other 10-25-2023 Evaluation note* Encounter Date Diagnosis Assessment Notes Treatment Notes Treatment Clinical Notes May, Degenerative lumbar disc (ICD-10 - M51.36) L4-5 Pt would like a referral to pain management regarding her chronic back pain. Her last x-ray of the lumbar spine was completed 10/2022 at [facility]--reviewed and in scanned documents. Referral placed. [...] disorder (ICD-10 - F31.81) Referral placed to [facility] for medication mangement. Posterous Other 09-19-2023 Evaluation note* Encounter Date Diagnosis Assessment Notes Treatment Notes Treatment Clinical Notes Apr, Exposure to head lice (ICD-10 - Z20.7) Discussed with patient exam is without any signs of current lice infection. May return to work tomorrow. Patient completed next treatment yesterday. Patient verbalized understanding. Posterous Other 09-14-2023 Evaluation note* Encounter Date Diagnosis Assessment Notes Treatment Notes Treatment Clinical Notes Apr, Primary hypertension (ICD-10 - I10) Posterous Other 09-13-2023 Evaluation note* Encounter Date Diagnosis [...] (ICD-10 - R73.01) Will obtain records from [facility] for most recent labs. Patient is [...] Low back pain, unspecified (ICD-10 - M54.50) Posterous Other 09-12-2023 Evaluation note* Encounter Date Diagnosis [...] 2) Aim for < 45 g carb/meal Posterous Other 08-08-2023 Evaluation note* Encounter Date Diagnosis [...] voice recognition software. 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 Mar, Dietary surveillance and counseling (ICD-10 - [...] as sweet tea, replace ice cream with Swedish yogurt, use protein shake in the a.m. [...] with the patient, and documenting clinical information. Posterous Other 06-27-2023 Evaluation note* Encounter Date Diagnosis [...] 7 days, sooner if significantly worsening symptoms. Posterous Other 11-26-2022 Evaluation note* Encounter Date Diagnosis [...] 3 days. Off work today and tomorrow Posterous Other 11-19-2021 Evaluation note* Encounter Date Diagnosis [...] writting by [facility] Care At Home document. Posterous Other 10-31-2021 Evaluation note* Encounter Date Diagnosis [...] Patient care instructions given in writting by [facility] Care At Home document. [facility] Contacts+ Other 10-14-2021 Evaluation note* Encounter Date Diagnosis Assessment Notes Treatment Notes Treatment Clinical Notes May, Dysuria (ICD-10 - R30.0) May, Urinary tract infection, site not specified (ICD-10 - N39.0) May, Hematuria, unspecified (ICD-10 - R31.9) [facility] Contacts+ Other evaluation noteNo [facility] Contacts+ Other evaluation noteNo assessment information available [facility] Work Phone: evaluation note* Diagnosis Onset Date Resolution Status Dietary surveillance and counseling acute Exercise counseling acute Food insecurity acute PCOS (polycystic ovarian syndrome) acute Prediabetes acute Severe obesity (BMI >= 40) a [facility] Work Phone: Evaluation note* Diagnosis Onset Date Resolution Status Dietary surveillance and counseling acute Exercise counseling acute Food insecurity acute PCOS (polycystic ovarian syndrome) acute Prediabetes acute Severe obesity (BMI >= 40) a cute Lightheadedness acute Menorrhagia acute Palpitations acute [facility] Work Phone: evaluation note* Diagnosis Onset Date Resolution Status Dietary surveillance and counseling acute Exercise counseling acute Food insecurity acute PCOS (polycystic ovarian syndrome) acute Prediabetes acute Severe obesity (BMI >= 40) a cute Lightheadedness acute Menorrhagia acute Palpitations acute Dietary surveillance and counseling acute Exercise counseling acute Severe obesity (BMI >= 40) a [facility] Work Phone: Evaluation note* Diagnosis Onset Date Resolution Status Lightheadedness acute Menorrhagia acute Palpitations acute Dietary surveillance and counseling acute Exercise counseling acute Severe obesity (BMI >= 40) a [facility] Work Phone: evaluation note* Diagnosis Onset Date Resolution Status Aphasia acute History of seizures acute Memory loss acute Migraine acute [facility] Work Phone: Evaluation note* Diagnosis Onset Date Resolution Status Aphasia acute Apnea acute Fatigue acute History of seizures acute Loud snoring acute Memory loss acute Migraine acute Morbid obesity acute Acute UTI acute [facility] Work Phone: Evaluation note* Diagnosis Onset Date Resolution Status Aphasia acute Apnea acute Fatigue acute History of seizures acute Loud snoring acute Memory loss acute Migraine acute Morbid obesity acute Acute UTI acute Fatty liver disease, nonalcoholic acute Frequent UTI acute UTI (urinary tract infection) acute [facility] Work Phone: Evaluation note* Diagnosis Cognitive impairment- [...] HealthcareHistory and physical note Author Hilaria Burgos [facility] Note Date/Time August 19, 2024 9: 54am [facility] [address] [place] [address] Gastroenterology H&P Signed Patient: Ashly Mehta MR#: [id number] : 1990 Acct:[id number] Age/Sex: 33 / F Adm Date: Loc: Room: Type: [facility] Attending Dr: Hilaria Burgos DO Copies [...] signed by Hilaria Burgos DO> 08/19/24 0[facility] Work Phone: history general Narrative [...] History Hospitalized for blood l oss 2010 Posterous Other history general Narrative - Reported* Type [...] History Hospitalized for blood l oss 2010 Posterous Other history general Narrative - Reported* Type [...] History Hospitalized for blood l oss 2010 Posterous Other history general Narrative - Reported* Type [...] History Hospitalized for blood l oss 2010 Posterous Other history general Narrative - Reported* Type [...] History Hospitalized for blood l oss 2010 Posterous Other history general Narrative - Reported* Type [...] History Hospitalized for blood l oss 2010 Posterous Other history general Narrative - Reported* Type [...] History Hospitalized for blood l oss 2010 Posterous Other Hospital Discharge instructionsAmbulatory Orders* Referral to Gastroenterology Time Frame: 06/21/24, Location: None Selected * Referral to Urology Time Frame: 06/21/24, Location: None Selected [facility] Work Phone: Hospital Discharge instructionsAmbulatory Orders* Disability Placard Time Frame: 02/17/25, Location: Determined By Patient * Referral to Weight Management Time Frame: 02/17/25, Location: None Selected [facility] Work Phone: Reason for referral (narrative)* Reason *FU 06/20 would li ke a referral to pscyiatrist -- was recently diagnosed with bipolar and would like medication management. Diagnosis 1 Bipolar 2 disorder ( F31.81) Referral Organization [facility] Referring Provider First Name Manisha Referring Provider Last Name Tari Referring Provider Specialty Nurse Pract itioner Referred Organization [facility] Referred Address [address],[place], [place],[address] Referred Provider Specialty Psychiatry Referral Priority Routine General Notes Paola Henderson 01:25:30 PM >received today, not sure if [facility] does medication management, waiting for notes to be locked Paola Henderson 06/13/2023 10:34:39 AM >notes locked, referral faxed Clinical Notes p: [phone] f: [phone] [facility] Reason *FU 06/20 would li ke a referral to pain management for other options for pain control for back pain Diagnosis 1 Degenerative lumbar disc (M51.36) Referral Organization [facility] Referring Provider First Name Manisha Referring Provider Last Name Tari Referring Provider Specialty Nurse Pract itgris Referred Organization [facility] Referred Provider Yrn Parsons Referred Address [address] [place], [place],[address] Referred Provider Specialty Pain Medicin e Referral Priority Routine General Notes Paola Henderson 01:21:23 PM >received today, waiting for notes to be locked Paola Henderson 06/13/2023 10:25:26 AM >notes locked, referral faxed Clinical Notes f: [phone] [employer] Other reason for referral (narrative)No reason for referral information availableKindred Healthcare Work Phone: Reyjxz for visit Narrative* Consultation (Routine) - Closed Specialty Diagnoses / Procedures Referred By Ela noriega Referred To Contact Neurology Diagnoses Aphasia Personal history of other specified conditions Other amnesia Procedures [place] OFFICE/OUTPATIENT NEW LOW MDM 30 MINUTES Manisha Marc, NEVIN [address] [place] [address] [address] [place] [address] Phone: tel: fax: Sugey Dinero MD [address] [place] [address] Phone: tel: fax: Referral ID Status Reason Start Date Expiration Date V isits Requested Visits Authorized [id number] Closed Consult and Treat 05/28/2024 11/24/2024 1 [facility]* Consultation (Routine) - Closed Specialty Diagnoses / Procedures Referred By Lukeac t Referred To Contact Psychology Diagnoses Cognitive impairment Procedures [place] OFFICE/OUTPATIENT NEW HIGH MDM 60 MINUTES Gwen Cox DO [address] [place] [address] Phone: tel: fax: Mario Mcknight, PhD [address] [place] [id number] Phone: tel: fax: Referral ID Status Reason Start Date Expiration Date V isits Requested Visits Authorized [id number] Closed Specialty Services Required 06/23/2024 12/20/2024 1 1 [facility] Healthcare Summary Purpose Family History Relationship Condition [...] Memory loss Migraine Chief Complaint Memory Concerns possible UTI, cramping, frequency Reason for Visit [...] :05am Burning with urination June 25 11:00am August 03, 2024 11:08am uti symptoms August [...] loos e stool September 27, 2024 3:23pm November 09, 2024 1:1 6pm painful lump [...] head and neck November 15, 2024 1:32pm Chief Complaint Admit Date February 08, 2025 10:0 0am UTI Symptoms/Discuss Health February 17 10:53am Reason for Visit Admit Date Degenerative lumbar disc February 17, 2025 10:53am Food insecurity February 17, 2025 10:53 am Insulin resistance February 17, 2025 10:53 am Morbid obesity February 17, 2025 10:53 am Prediabetes February 17, 2025 10:53 am UTI (urinary tract infection) February 17, 2025 10:53am Chief Complaint Admit Date BH February 16, 2025 10:00 am UTI Symptoms/Discuss Health February 17 10:53am R35.0 February 17, 2025 11:14 am Mouth pain February 22, 2025 4:45p m Reason for Visit Admit Date Communication deficit February 17, 2025 10: 53am Degenerative lumbar disc February 17, 2025 10:53am Food insecurity February 17, 2025 10:53 am Impaired social interaction February 17 10:53am Insulin resistance February 17, 2025 10:53 am Morbid obesity February 17, 2025 10:53 am Prediabetes February 17, 2025 10:53 am UTI (urinary tract infection) February 17, 2025 10:53am Chief Complaint Admit Date UTI Symptoms/Discuss Health February 17 10:53am R35.0 February 17, 2025 11:14 am BH February 22, 2025 10:00 am Mouth pain February 22, 2025 4:45p m Spinal stenosis, lumbar region with neur ogenic cla March 03, 2025 10:06am Reason for Visit Admit Date Communication deficit February 17, 2025 10: 53am Degenerative lumbar disc February 17, 2025 10:53am Food insecurity February 17, 2025 10:53 am Impaired social interaction February 17 10:53am Insulin resistance February 17, 2025 10:53 am Morbid obesity February 17, 2025 10:53 am Prediabetes February 17, 2025 10:53 am UTI (urinary tract infection) February 17, 2025 10:53am Reaction, drug, adverse February 22, 2025 4 :45pm Chief Complaint Admit Date UTI Symptoms/Discuss Health February 17 10:53am R35.0 February 17, 2025 11:14 am Mouth pain February 22, 2025 4:45p m BH March 02, 2025 10:0 0am Spinal stenosis, lumbar region with neur ogenic cla March 03, 2025 10:06am Lice check March 11, 2025 12:0 7pm Reason for Visit Admit Date Communication deficit February 17, 2025 10: 53am Degenerative lumbar disc February 17, 2025 10:53am Food insecurity February 17, 2025 10:53 am Impaired social interaction February 17 10:53am Insulin resistance February 17, 2025 10:53 am Morbid obesity February 17, 2025 10:53 am Prediabetes February 17, 2025 10:53 am UTI (urinary tract infection) February 17, 2025 10:53am Reaction, drug, adverse February 22, 2025 4 :45pm Spondylosis of lumbar region without myelopathy or radiculopathy March 03, 2025 10:06am Chief Complaint Admit Date UTI Symptoms/Discuss Health February 17 10:53am R35.0 February 17, 2025 11:14 am Mouth pain February 22, 2025 4:45p m BH March 02, 2025 10:0 0am Spinal stenosis, lumbar region with neur ogenic cla March 03, 2025 10:06am Lice check March 11, 2025 12:0 7pm Discuss heart health March 22, 2025 7: 59am Reason for Visit Admit Date Communication deficit February 17, 2025 10: 53am Degenerative lumbar disc February 17, 2025 10:53am Food insecurity February 17, 2025 10:53 am Impaired social interaction February 17 10:53am Insulin resistance February 17, 2025 10:53 am Morbid obesity February 17, 2025 10:53 am Prediabetes February 17, 2025 10:53 am UTI (urinary tract infection) February 17, 2025 10:53am Reaction, drug, adverse February 22, 2025 4 :45pm Spondylosis of lumbar region without myelopathy or radiculopathy March 03, 2025 10:06am Pruritus of scalp March 11, 2025 12:0 7pm Hypertension March 22, 2025 7:5 9am Insulin resistance March 22, 2025 7:5 9am Palpitations March 22, 2025 7:5 9am Prediabetes March 22, 2025 7:5 9am Unable to lose weight March 22, 2025 7 :59am Vitamin B12 deficiency March 22, 2025 7:59am Vitamin D deficiency March 22, 2025 7: 59am Additional Source Comments INFORMATION SOURCE (unrecogn ized section and content) DATE CREATED AUTHOR 08/27/2021 [facility] DATE CREATED AUTHOR AUTHOR'S ORGANIZ ATION 01/01/2023 [facility] DATE CREATED AUTHOR AUTHOR'S ORGANIZ ATION 06/25/2024 [facility] DATE CREATED AUTHOR AUTHOR'S ORGANIZ ATION 12/02/2024 [facility] EPIC DATE CREATED AUTHOR AUTHOR'S ORGANIZ ATION 02/05/2025 [facility] DATE CREATED AUTHOR AUTHOR'S ORGANIZ ATION 03/12/2025 [facility] DATE CREATED AUTHOR AUTHOR'S ORGANIZ ATION 03/19/2025 [facility] REASON FOR VISIT (unrecogniz ed section and content) Reason Comments Memory difficulty Reason Comments Well Women Visit STI Screening Care Teams (unrecognized sec tion and content) Team Status: Active Member Role Status Dates Manisha Marc APRN DENTAL MOLD MAKER-C Primary Care Provider Active Team Status: Active Member Role Status Dates Manisha Marc APRN DENTAL MOLD MAKER-C Primary Care Provider, Attending Provider Active Team Status: Inactive Member Role Status Dates Manisha Marc APRN DENTAL MOLD MAKER-C Primary Care Provider Active Celio Mullins DO Attending Provider Active Team Status: Inactive Member Role Status Dates Mansiha Marc APRN DENTAL MOLD [employer]KER-C Primary Care Provider Active Clinton Frazier MD Attending Provider Active Team Status: Inactive Member Role Status Dates Manisha Marc APRN DENTAL MOLD MAKER-C Primary Care Provider Active Start: July 032022 End: July 03, 2023 Celio Mullins DO Attending Provider Active St art: July 03, 2023 End: July 03, 2023 Team Status: Active Member Role Status Dates Manisha Marc APRN DENTAL MOLD [employer]KER-C Primary Care Provider Active Start: July 032022 Edward Gilmore MD Attending Provider Active Start: July 03, 2023 Team Status: Inactive Member Role Status Dates Michlele Ernandez NP-Damion Attending Provider Active S tart: July 07, 2023 End: July 07, 2023 Team Status: Inactive Member Role Status Dates Celio Mullins DO Attending Provider Active St art: July 15, 2023 End: July 15, 2023 Team Status: Inactive Member Role Status Dates Manisha Marc APRN DENTAL M[employer]-C Primary Care Provider Active Start: July End: July 19, 2023 Clinton Frazier MD Attending Provider Active Start: July 19, 2023 End: July 19, 2023 Team Status: Inactive Member Role Status Dates Manisha Marc APRN DENTAL MOLD MAKER-C Attending Provider Act rafal Start: August 13, 2023 End: August 13, 2023 Team Status: Inactive Member Role Status Dates Nely Cage , [facility] Attending Provider Active Start: August 19, 2023 End: August 19, 2023 Team Status: Active Member Role Status Dates Manisha Marc APRN DENTAL MOLD MAKER-C Primary Care Provider, Attending Provider Active Start: August 19, 2023 Team Status: Inactive Member Role Status Dates Manisha Marc APRN DENTAL MOLD MAKER-C Attending Provider Act rafal Start: September 03, 2023 End: September 03, 2023 Team Status: Inactive Member Role Status Dates Manisha Marc APRN DENTAL MOLD [employer]KER-C Primary Care Provider Active Start: October 012023 End: October 01, 2023 Celio Mullins DO Attending Provider Active St art: October 01, 2023 End: October 01, 2023 Team Status: Active Member Role Status Dates Manisha Marc APRN DENTAL M[employer]KER-C Primary Care Provider Active Start: August 142022 Edward Gilmore MD Attending Provider Active Start: August 14, 2023 Team Status: Active Member Role Status Dates Manisha Marc APRN DENTAL [employer]KER-C Primary Care Provider, Attending Provider Active Start: October 06, 2023 Team Status: Inactive Member Role Status Dates Manisha Marc APRN DENTAL MOLD [employer]KER-C Primary Care Provider Active Start: October 082023 End: October 08, 2023 Gwen Cox DO Attending Provider Active Start: October 08, 2023 End: October 08, 2023 Team Status: Active Member Role Status Dates Manisha Marc APRN DENTAL M[employer]-C Primary Care Provider, Attending Provider Active Start: October 30, 2023 Team Status: Inactive Member Role Status Dates Manisha Marc APRN DENTAL MOLD MAKER-C Primary Care Provider, Attending Provider Active Start: November 03, 2023 End: November 03, 2023 Team Status: Active Member Role Status Dates Manisha Marc APRN DENTAL MOLD MAKER-C Primary Care Provider Active Start: August Edward Gilmore MD Attending Provider Active Start: September 10, 2023 Team Status: Inactive Member Role Status Dates Manisha Marc APRN DENTAL MOLD MAKER-C Primary Care Provider Active Start: November 26, 2023 End: November 26, 2023 Celio Mullins DO Attending Provider Active St art: November 26, 2023 End: November 26, 2023 Team Status: Active Member Role Status Dates Manisha Marc APRN DENTAL MOLD MAKER-C Primary Care Provider Active Start: January 01, 2024 Edward Gilmore MD Attending Provider Active Start: January 01, 2024 Team Status: Active Member Role Status Dates Manisha Marc APRN DENTAL MOLD MAKER-C Primary Care Provider Active Start: April 03, 2024 Edward Gilmore MD Attending Provider Active Start: April 03, 2024 Team Status: Active Member Role Status Dates Manisha Marc APRN DENTAL MOLD MAKER-C Primary Care Provider Active Start: April 12, 2024 Jaymie Griffin DO Attending Provider Active Start: April 12, 2024 Team Status: Inactive Member Role Status Dates Manisha Marc APRN DENTAL MOLD MAKER-C Primary Care Provider, Attending Provider Active Start: April 21, 2024 End: April 21, 2024 Team Status: Active Member Role Status Dates Manisha Marc APRN DENTAL MOLD MAKER-C Primary Care Provider Active Start: April 12, 2024 Agusto Rojas DO Attending Provider Active Sta rt: April 12, 2024 Team Status: Active Member Role Status Dates Manisha Marc APRN DENTAL MOLD MAKER-C Primary Care Provider Active Start: April 15, 2024 Agusto Rojas DO Attending Provider Active Sta rt: April 15, 2024 Team Status: Active Member Role Status Dates Manisha Marc APRN DENTAL MOLD MAKER-C Primary Care Provider Active Start: April 192023 Edward Gilmore MD Attending Provider Active Start: May 13, 2024 Team Status: Active Member Role Status Dates Manisha Marc APRN DENTAL MOLD MAKER-C Primary Care Provider, Attending Provider Active Start: June 07, 2024 Team Status: Inactive Member Role Status Dates Manisha Marc APRN DENTAL MOLD MAKER-C Primary Care Provider Active Start: May End: [...] Member Role Status Dates Manisha Marc APRN DENTAL MOLD MAKER-C Primary Care Provider, Attending Provider Active Start: June 21, 2024 End: June 21, 2024 Roof Tiler Relationship Specialty Start Date End Date Thaddeus Rod MD [address] [place] [id number] PCP - General Family Medicine 04/24/23 Roof Tiler Relationship Specialty Start Date End Date Thaddeus Rod MD [address] [place] [id number] PCP - General Family Medicine 04/24/23 Roof Tiler Relationship Specialty Start Date End Date Thaddeus Rod MD [address] [place] [address] PCP - General Family Medicine 04/24/23 Team Status: Inactive Member Role Status Dates Manisha Marc APRN DENTAL MOLD MAKER-C Primary Care Provider, Attending Provider Active Start: June 25, 2024 End: June 25, 2024 Team Status: Inactive Member Role Status Dates Manisha Marc APRN DENTAL MOLD MAKER-C Attending Provider Act rafal Start: June 25, 2024 End: June 25, 2024 Roof Tiler Relationship Specialty Start Date End Date Thaddeus Rod MD [address] [place] [id number] PCP - General Family Medicine 04/24/23 Roof Tiler Relationship Specialty Start Date End Date Thaddeus Rod MD [address] [place] [address] PCP - General Family Medicine 04/24/23 Roof Tiler Relationship Specialty Start Date End Date Thaddeus Rod MD [address] [place] [address] PCP - General Family Medicine 04/24/23 Team Status: Active Member Role Status Dates Tiffanie Villalobos MD Attending Provider Active St art: June 29, 2024 Team Status: Active Member Role Status Dates Manisha Marc APRN DENTAL MOLD MAKER-C Primary Care Provider Active Start: August 032023 Edward Gilmore MD Attending Provider Active Start: August 03, 2024 Team Status: Inactive Member Role Status Dates Manisha Marc APRN DENTAL MOLD MAKER-C Primary Care Provider, Attending Provider Active Start: August 09, 2024 End: August 09, 2024 Team Status: Inactive Member Role Status Dates Manisha Marc APRN DENTAL MOLD MAKER-C Attending Provider Active Start: July End: August 09, 2024 PHYSICIAN NO FAMILY Primary Care Provider Active Start: August 09, 2024 End: August 09, 2024 Team Status: Inactive Member Role Status Dates Hilaria Burgos DO Attending Provider Active St art: August 19, 2024 End: August 19, 2024 Manisha Marc APRN DENTAL MOLD MAKER-C Primary Care Provider Active Start: August 19, 2024 End: August 19, 2024 Team Status: Active Member Role Status Dates Hilaria Brugos DO Attending Provider, Other Provider Active Start: August 19, 2024 Manisha Marc APRN DENTAL MOLD MAKER-C Primary Care Provider Active Start: August Team Status: Inactive Member Role Status Dates Manisha Marc APRN DENTAL MOLD MAKER-C Primary Care Provider, Attending Provider Active Start: August 24, 2024 End: August 24, 2024 Team Status: Active Member Role Status Dates Manisha Marc APRN DENTAL MOLD MAKER-C Primary Care Provider Active Start: August 24, 2024 Edward Gilmore MD Attending Provider Active Start: August 24, 2024 Team Status: Inactive Member Role Status Dates Manisha Marc APRN DENTAL MOLD MAKER-C Primary Care Provider Active Start: August End: August 28, 2024 Viry Holder APRN Attending Provider Active S tart: August 28, 2024 End: August 28, 2024 Team Status: Active Member Role Status Dates Manisha Marc APRN DENTAL MOLD MAKER-C Primary Care Provider Active Start: August Edward Gilmore MD Attending Provider Active Start: August 27, 2024 Team Status: Inactive Member Role Status Dates Manisha Marc APRN DENTAL MOLD MAKER-C Primary Care Provider Active Start: September 272024 End: September 27, 2024 Viry Holder APRN Attending Provider Active S tart: September 27, 2024 End: September 27, 2024 Roof Tiler Relationship Specialty Start Date End Date Thaddeus Rod MD [address] [place] [address] PCP - General Family Medicine 04/24/23 Team Status: Active Member Role Status Dates Manisha Marc APRN DENTAL MOLD MAKER-C Primary Care Provider Active Start: October 122024 Tiffanie Villalobos MD Attending Provider Active St art: October 12, 2024 Team Status: Active Member Role Status Dates Manisha Marc APRN DENTAL MOLD MAKER-C Primary Care Provider Active Start: November 03, 2024 Marko Oscar DO Attending Provider Active Start : November 03, 2024 Team Status: Active Member Role Status Dates Manisha Marc APRN DENTAL MOLD MAKER-C Primary Care Provider Active Start: November 09, 2024 Edward Gilmore MD Attending Provider Active Start: November 09, 2024 Team Status: Inactive Member Role Status Dates Manisha Marc APRN DENTAL MOLD MAKER-C Primary Care Provider, Attending Provider Active Start: November 15, 2024 End: November 15, 2024 Team Status: Active Member Role Status Dates Manisha Marc APRN DENTAL MOLD MAKER-C Primary Care Provider Active Start: December 28, 2024 Tiffanie Villalobos MD Attending Provider Active St art: December 28, 2024 Team Status: Active Member Role Status Dates Manisha Marc APRN DENTAL MOLD MAKER-C Primary Care Provider Active Start: February 08, 2025 Edward Gilmore MD Attending Provider Active Start: February 08, 2025 Team Status: Inactive Member Role Status Dates Manisha Marc APRN DENTAL MOLD MAKER-C Primary Care Provider Active Start: February 17, 2025 End: February 17, 2025 Manisha Marc APRN DENTAL MOLD MAKER-C Attending Provider Act rafal Start: February 17, 2025 End: February 17, 2025 Team Status: Inactive Member Role Status Dates Manisha Marc APRN DENTAL MOLD MAKER-C Attending Provider Act rafal Start: February 17, 2025 End: February 17, 2025 Team Status: Active Member Role Status Dates Manisha Marc APRN DENTAL MOLD MAKER-C Primary Care Provider Active Start: February 16, 2025 Edward Gilmore MD Attending Provider Active Start: February 16, 2025 Team Status: Inactive Member Role Status Dates Manisha Marc APRN DENTAL MOLD MAKER-C Primary Care Provider Active Start: February 22, 2025 End: February 22, 2025 Sakina Real APRN Attending Provider Active Start: February 22, 2025 End: February 22, 2025 Team Status: Active Member Role Status Dates Manisha Marc APRN DENTAL MOLD MAKER-C Primary Care Provider Active Start: February 22, 2025 Edward Gilmore MD Attending Provider Active Start: February 22, 2025 Team Status: Inactive Member Role Status Dates Manisha Marc APRN DENTAL MOLD MAKER-C Primary Care Provider Active Start: March 03, 2025 End: March 03, 2025 Syed Leonard MD Attending Provider Active Star t: March 03, 2025 End: March 03, 2025 Team Status: Active Member Role Status Dates Manisha Marc APRN DENTAL MOLD MAKER-C Primary Care Provider Active Start: March 02, 2025 Edward Gilmore MD Attending Provider Active Start: March 02, 2025 Team Status: Inactive Member Role Status Dates Manisha Marc APRN DENTAL MOLD MAKER-C Primary Care Provider Active Start: March 11, 2025 End: March 11, 2025 Casandra Hassan APRN Attending Provider Active Start: March 11, 2025 End: March 11, 2025 Team Status: Inactive Member Role Status Dates Manisha Marc APRN DENTAL MOLD MAKER-C Primary Care Provider Active Start: March 22, 2025 End: March 22, 2025 Manisha Marc APRN DENTAL MOLD MAKER-C Attending Provider Act rafal Start: March 22, 2025 End: March 22, 2025 Goals (unrecognized section and content) Goals may [...] BE BASED ON THE PRIMARY CLINICAL RECORDS. [employer] provides no warranty or guarantee of the accuracy or completeness of information in this document.
[2025-03-22 09:13] LABS: Hematocrit 41.3 % (36.0-48.0); Hemoglobin 13.5 g/dL (12.0-16.0); Immature Granulocytes Abs Auto 0.01 10^3/uL (0.00-0.03); Immature Granulocytes Pct Auto 0.1 % (0.0-0.5); Lymphocytes Absolute Auto 2.4 10^3/uL (1.2-3.8); Mean Corpuscular HGB Conc 32.7 g/dL (29.9-35.2); Mean Corpuscular Hemoglobin 29.8 pg (26.7-34.0); Mean Corpuscular Volume 91.2 fL (81.0-99.0); Platelet Count 251 10^3/uL (150-450); Red Blood Count 4.53 10^6/uL (4.20-5.40); White Blood Count 7.3 10^3/uL (4.0-11.0)
[2025-03-22 09:52] LABS: Alanine Aminotransferase 61 U/L (14-59); Albumin Level 3.7 g/dL (3.4-5.0); Alkaline Phosphatase 84 U/L (46-116); Anion Gap 13.3; Aspartate Amino Transferase 31 U/L (15-37); Blood Urea Nitrogen 14.0 mg/dL (7.0-18.0); Calcium 8.9 mg/dL (8.5-10.1); Carbon Dioxide 26.0 mmol/L (21.0-32.0); Chloride 103 mmol/L (98-107); Estimated GFR (African America >60 (>=60 mL/min/1.73m^2); Estimated GFR (Non-African Ame >60 (>=60 mL/min/1.73m^2); Globulin 4.1 g/dL; Glucose 98 mg/dL (74-106); Potassium 4.3 mmol/L (3.5-5.1); Sodium 138 mmol/L (136-145); Total Protein 7.8 g/dL (6.4-8.2)
[2025-03-22 09:53] LABS: Albumin Globulin Ratio 0.9; Cholesterol 162 mg/dL (<=200); HDL Cholesterol 44 mg/dL (40-60); TSH W/ REFLEX FT4 1.174 uIU/mL (0.358-3.740); Triglycerides 138 mg/dL (<=150); VLDL CHOLESTEROL 27.6 mg/dL
[2025-03-23 04:07] LABS: Vitamin B12 804 pg/mL (232-1245)
== END 2025-03-22 08:51 | disposition home or self-care (01) ==
LOC: LAB 08:53
PROVIDERS: PCP Nurse Practitioner Family; Visit Provider Nurse Practitioner Family
DX: R73.03 Prediabetes (principal); I10 Essential (primary) hypertension; R63.8 Other symptoms and signs concerning food and fluid intake; E53.8 Deficiency of other specified B group vitamins; E55.9 Vitamin D deficiency, unspecified
CPT/HCPCS: 36415; 80053; 80061; 82306; 82607; 83036; 84443; 85025

== ENCOUNTER 2025-05-12 10:30 | Outpatient (OUT) | payer OTHER, SELFPAY ==
--- OUTSIDE RECORDS SUMMARY | 2024-10-12 11:15 | XMS_ITS ---
Author Organization The [facility] in [place] Address [address] [place] [address] Care Team Providers Care It Security Consulting Director Name Role Phone Manisha Marc CNP Primary Care Provider U Tiffanie Bill Unavailable [phone] REASON FOR VISIT MD Encounters Encounter Location Date Provider Diagnosis [facility] [address] [place] [address] 10/12/2024 Tiffanie Villalobos Plan Of Treatment Next Appt Details Provider Name:Tiffanie Wilfredo , 06/07/2025 08:30:00 AM, [address] [place], [address], Progress Notes * Ashly PACK KDOB:1990 (34 yo F)Acc No.[id number]:10/12/2024 UNLOCKED PROGRESS NOTE Progress Notes Patient: Ashly HARO Provider: Mariola Villalobos M.D. :1990 A ge:34 Y S ex:Female Date:10/12/2024 Address:[address] [id number] Pcp:Manisha Marc CNP Subjective: * Chief Complaints: * 1 . MD. * Medical History: Objective: * Vitals: Assessment: Plan: * Treatment: * * Electronic signature of Aiden Villalobos MD, [id number] on 05/12/2025 at 10:35 AM EDT Sign off status: Pending Visit Status: A [facility] (Voice) * Provider: Mariola Villalobos M.D. Date: 0 10/12/2024 Generated for [facility] quiles/Gifty/Jayjayitting on: 0 05/12/2025 10:35 AM EDT
--- OUTSIDE RECORDS SUMMARY | 2024-11-19 06:20 | XMS_ITS ---
Author Organization The [facility] in [place] Address [address] [place] [address] Care Team Providers Care Social Media Specialist Name Role Phone Manisha Marc CNP Primary Care Provider U Aaron Willis Unavailable [phone] REASON FOR VISIT 3 mos Encounters Encounter Location Date Provider Diagnosis Urology [address] [place] [address] 11/19/2024 Aaron Eastman Plan Of Treatment Next Appt Details Provider Name:Tiffanie Villalobos , 06/07/2025 08:30:00 AM, [address] [place], [address], Progress Notes * SIRENA Ashly KDOB:1990 (34 yo F)Acc No.[id number]:11/19/2024 UNLOCKED PROGRESS NOTE Patient: Ashly HARO Provider: Brett Eastman MD :1990 A ge:34 Y S ex:Female Date:11/19/2024 Address:[address] [id number] Pcp:Manisha Marc CNP Subjective: * Chief Complaints: * 1 . 3 mos. * Medical History: Objective: * Vitals: Assessment: Plan: * Treatment: * * Electronic signature of Urban Eastman MD, [id number] on 05/12/2025 at 10:35 AM EDT Sign off status: Pending Visit Status: R /S (Rescheduled) * Provider: Brett Eastman MD Date: 0 11/19/2024 Generated for [facility] quiles/Gifty/Benjamin on: 0 05/12/2025 10:35 AM EDT
--- OUTSIDE RECORDS SUMMARY | 2025-01-04 05:30 | XMS_ITS ---
Author Organization [facility] in [place] Address [address] [place] [address] Care Team Providers Care Associate Director Career Services Name Role Phone Manisha Marc CNP Primary Care Provider U Tiffanie Bill Unavailable [phone] REASON FOR VISIT MD Encounters Encounter Location Date Provider Diagnosis [facility] [address] [place] [address] 01/04/2025 Tiffanie Villalobos Plan Of Treatment Next Appt Details Provider Name:Tiffanie Wilfredo , 06/07/2025 08:30:00 AM, [address] [place], [address], Progress Notes * Ashly PACK KDOB:1990 (34 yo F)Acc No.[id number]:01/04/2025 UNLOCKED PROGRESS NOTE Progress Notes Patient: Ashly HARO Provider: Mariola Villalboos M.D. :1990 A ge:34 Y S ex:Female Date:01/04/2025 Address:[address] [id number] Pcp:Manisha Marc CNP Subjective: * Chief Complaints: * 1 . MD. * Medical History: Objective: * Vitals: Assessment: Plan: * Treatment: * * Electronic signature of Aiden Villalobos MD, [id number] on 05/12/2025 at 10:34 AM EDT Sign off status: Pending Visit Status: A [facility] (Voice) * Provider: Mariola Villalobos M.D. Date: 0 01/04/2025 Generated for [facility] quiles/Gifty/Jayjayitting on: 0 05/12/2025 10:34 AM EDT
--- OUTSIDE RECORDS SUMMARY | 2025-03-15 04:30 | XMS_ITS ---
Author Organization [facility] in [place] Address [address] [place] [address] Care Team Providers Care Heat Treating Bluer Name Role Phone Manisha Marc CNP Primary Care Provider U Tiffanie Bill Unavailable [phone] REASON FOR VISIT MD Encounters Encounter Location Date Provider Diagnosis [facility] [address] [place] [address] 03/15/2025 Tiffanie Villalobos Plan Of Treatment Next Appt Details Provider Name:Tiffanie Wilfredo , 06/07/2025 08:30:00 AM, [address] [place], [address], Progress Notes * Ashly PACK KDOB:1990 (34 yo F)Acc No.[id number]:03/15/2025 UNLOCKED PROGRESS NOTE Progress Notes Patient: Ashly HARO Provider: Mariola Villalobos M.D. :1990 A ge:34 Y S ex:Female Date:03/15/2025 Address:[id number] Pcp:Manisha Marc CNP Subjective: * Chief Complaints: * 1 . MD. * Medical History: Objective: * Vitals: Assessment: Plan: * Treatment: * * Electronic signature of Aiden Villalobos MD, [id number] on 05/12/2025 at 10:34 AM EDT Sign off status: Pending Visit Status: C ANC (Cancelled) * Provider: Mariola Villalobos M.D. Date: 0 03/15/2025 Generated for [facility] quiles/Gifty/Jayjayitting on: 0 05/12/2025 10:34 AM EDT
--- OUTSIDE RECORDS SUMMARY | 2025-05-12 10:34 | XMS_ITS | Clinical Summary ---
Author Organization [facility] Address [address] [place] [address] Care Team Providers Care Thresher Broomcorn Name Role Phone Unavailable Primary Care Provider Unavailabl e Source Comments The following information is NOT included in Care Everywhere downloads:Psychiatric notes, ECG results, Cardiac Rehab notes, Pulmonary Function notes, data from SmartForms (includes but not limited toPregnancy data,audiograms, eye exams, pre-surgical evaluation notes, well-child exam data).[facility] Allergies Active Allergy Reactions Criticality Noted Date Comments Amoxicillin 07/08/2016 Cefaclor Hives 04/14/2015 Erythromycin Rash Low 04/14/2015 Medications albuterol (PROAIR HFA) INHALATION HFA inhaler (VENTOLIN,PROAIR ,PROVENTIL) 90mcg Inhale 2 Puffs by mouth. Active Gabapentin (NEURONTIN ORAL) Take by mouth. Active levETIRAcetam (KEPPRA) 500 MG tablet Take 500 mg by mouth 2 times daily. Active chlorhexidine (PERIDEX) 0.12 % oral solution Take 15 mL by mouth 2 times daily. 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 Sometimes some incontinence. No documented fevers. No gross hematuria. Persistent microscopic hematuria per primary care note. Plan: Evaluate lower urinary tract cystoscopy. Potential retrograde pyelogram. CT urogram cytology. [facility] bladder solution Social History Tobacco Use Types Packs/Day Years Used Date Smoking Tobacco: Passive Smo ke Exposure - Never Smoker Smokeless Tobacco: Never Comments:NON-SMOKER, AROUND 2ND HAND SMOKE CONSTANTLY Alcohol Use Standard Drinks/Week Comments No 0 (1 standard drink = 0.6 oz pur e alcohol) Substance Use Types Use/Week Comments No Comments No Sex and Gender Information Value Date Recorded Sex Assigned at Not on file Legal Sex Female 1:18 PM EDT Gender Identity Not on file Sexual Orientation Not on file Last Filed Vital Signs Vital Sign Reading Time Taken Comments Blood Pressure 106/40 08/27/2018 11:30 AM EST Pulse 64 08/27/2018 11:30 AM EST Temperature 36.5 C (97.7 F) 08/27/2018 11:30 AM EST Respiratory Rate 13 08/27/2018 11:30 AM EST Oxygen Saturation 98% 08/27/2018 11:30 AM EST Inhaled Oxygen Concentration - - Weight 120.2 kg (265 lb) 08/27/2018 9:30 AM EST Height 162.6 cm (5' 4 ) 08/27/2018 9:30 AM EST Body Mass Index 45.49 08/27/2018 9:30 AM EST Plan of Treatment Health Maintenance Due Date Last Done Comments HIV Test 2006 Hepatitis C Antibody 2009 Tdap Booster 2009 Hepatitis A (HAV) Vaccine (optional start 19+ years) 2010 Hepatitis B (HBV) Vaccine (1 of 3 - 19+ 3-dose series) 2010 Pap Smear 2012 HPV Vaccine (optional start 27-45 years) 2018 COVID-19 Vaccine (3 - 2024- season) 2025 03/03/2021, 02/10/2021 Influenza Vaccine (#1) 2025 Shingles (RZV) Vaccine (1 of 2) 2041 Mammography Discontinued Pneumococcal Vaccine(s) Aged Out No l onger eligible based on patient's age to complete this topic Insurance DENTAL-MEDICAID HMO DENTAL-MEDICAID HMO
--- OUTSIDE RECORDS SUMMARY | 2025-05-12 10:34 | XMS_ITS | Patient Health Record ---
Author Organization [facility] [place] Address [address] [place] [address] Care Team Providers Care Advertising Sales Executive Name Role Phone Manisha Marc CNP Primary Care Provider U Aaron Willis Unavailable [phone] Tiffanie Villalobos Unavailable [phone] Allergies Allergen (clinical drug ingredient) Drug/Non Drug Allergy documented on EMR Reaction Allergy Type Onset Date Status amoxicillin Amoxicillin hives Drug Allergy Act rafal cefaclor Cefaclor hives Drug Allergy Active erythromycin Erythromycin Hives,Rash Drug Allergy Active Results Component Value Reference Range Notes FERRITIN (Not yet reviewed b y provider) Interpretation: Performing Lab: Notes/Report: [facility] , Ferritin 43.0 8.0-252.0 ng/mL Performing Lab: see note ML - [facility] LB IRON AND TIBC (Not yet revie wed by provider) Interpretation: Performing Lab: Notes/Report: [facility] , Iron 50.0 50.0-170.0 ug/dL Total Iron Binding Capacity 380.0 250.0-450.0 ug/dL Percent Iron Saturation 13.2 Performing Lab: see note ML - [facility] LB YU and PE, Serum (Not yet r eviewed by provider) Interpretation: Performing Lab: Notes/Report: [facility] , Immunoglobulin G, Qn, Serum 8335 302-1249 mg/dL Immunoglobulin A, Qn, Serum 130 87-352 mg/dL Immunoglobulin M, Qn, Serum 148 26-217 mg/dL Protein, Total 6.7 6.0-8.5 g/dL Albumin 3.5 2.9-4.4 g/dL Ggiej-9-Jzpdboca 0.2 0.0-0.4 g/dL Meyxg-2-Gtxitgor 0.8 0.4-1.0 g/dL Beta Globulin 1.0 0.7-1.3 g/dL Gamma Globulin 1.1 0.4-1.8 g/dL M-Manpreet Not Observed Not Observed g/dL Globulin, Total 3.2 2.2-3.9 g/dL A/G Ratio 1.1 0.7-1.7 Immunofixation Result, Serum Comment . No monoclonality det ected. Please note: Comment . Performed at: [address] [id number] Protein electrophoresis scan will follow via computer, Medicaid Eligibility Specialist: Cassius Zhong PhD, Phone: [phone] mail, or farm product purchaser delivery. Performing Lab: see note LC - [facility] LB FERRITIN (Not yet reviewed b y provider) Interpretation: Performing Lab: Notes/Report: [facility] , Ferritin 321.0 8.0-252.0 ng/mL Performing Lab: see note ML - [facility] LB IRON AND TIBC (Not yet revie wed by provider) Interpretation: Performing Lab: Notes/Report: [facility] , Iron 70.0 50.0-170.0 ug/dL Total Iron Binding Capacity 290.0 250.0-450.0 ug/dL Percent Iron Saturation 24.1 Performing Lab: see note ML - [facility] LB YU, PE and FLC, Serum (Not yet reviewed by provider) Interpretation: Performing Lab: Notes/Report: [facility] , Immunoglobulin G, Qn, Serum 9724 484-1804 mg/dL Immunoglobulin A, Qn, Serum 122 87-352 mg/dL Immunoglobulin M, Qn, Serum 105 26-217 mg/dL Protein, Total 6.6 6.0-8.5 g/dL Albumin 3.4 2.9-4.4 g/dL Beali-3-Snpbrupj 0.2 0.0-0.4 g/dL Avnme-6-Xijdvhxg 0.8 0.4-1.0 g/dL Beta Globulin 1.0 0.7-1.3 g/dL Gamma Globulin 1.1 0.4-1.8 g/dL M-Manpreet Not Observed Not Observed g/dL Globulin, Total 3.2 2.2-3.9 g/dL A/G Ratio 1.1 0.7-1.7 Immunofixation Result, Serum Comment . No monoclonality det ected. Please note: Comment . Protein electrophoresis scan will follow via computer, mail, or farm product purchaser delivery. Free [place] Lt Chains,S 18.1 3.3-19.4 mg/L Free Lambda Lt Chains,S 19.6 5.7-26.3 mg/L [place]/Lambda Ratio,S 0.92 0.26-1.65 Performed at: - [facility] [id number] Medicaid Eligibility Specialist: Cassius Zhong PhD, Phone: [phone] Performing Lab: see note - [facility] LB LDH (Not yet reviewed by pro vider) Interpretation: Performing Lab: Notes/Report: [facility] , Lactate Dehydrogenase 190 81-234 U/L Performing Lab: see note ML - [facility] LB CRP (Not yet reviewed by pro vider) Interpretation: Performing Lab: Notes/Report: [facility] , C Reactive Protein 0.96 <=0.50 mg/dL Performing Lab: see note ML - [facility] LB Erythrocyte Sedimentation Ra te (Not yet reviewed by provider) Interpretation: Performing Lab: Notes/Report: [facility] , Erythrocyte Sedimentation Rate 46 <=20 mm/hr Performing Lab: see note ML - [facility] LB PROF CHEM 8 (BAS METB) (Not yet reviewed by provider) Interpretation: Performing Lab: Notes/Report: [facility] , Sodium 138 136-145 mmol/L Potassium 4.4 3.5-5.1 mmol/L Chloride 104 98-107 mmol/L Carbon Dioxide 26.8 21.0-32.0 mmol/L Anion Gap 11.6 Glucose 89 74-106 mg/dL Blood Urea Nitrogen 10.0 7.0-18.0 mg/dL Creatinine 0.73 0.55-1.02 mg/dL Estimated GFR ( Dolores >60 >=60 mL/min/1.73m 2 Estimated GFR (Non- Thania >60 >=60 mL/min/1.73m 2 BUN Creatinine Ratio 13.7 Calcium 9.0 8.5-10.1 mg/dL Performing Lab: see note - [facility] LB CRP (Not yet reviewed by pro vider) Interpretation: Performing Lab: Notes/Report: [facility] , C Reactive Protein 1.07 <=0.50 mg/dL Performing Lab: see note - [facility] LB CBC AUTO DIFF (Not yet revie wed by provider) Interpretation: Performing Lab: Notes/Report: [facility] , White Blood Count 9.2 4.0-11.0 10 [...] 3/uL Performing Lab: see note - [facility] LB Vitamin B12 (Not yet reviewe d by provider) Interpretation: Performing Lab: Notes/Report: [facility] , Vitamin B12 [phone] pg/mL [address] [place], [place] [id number] Medicaid Eligibility Specialist: Cassius Zhong PhD, Phone: [phone] Performed at: CB - [facility] [place] Performing Lab: see note LC - [facility] LB Erythrocyte Sedimentation Ra te (Not yet reviewed by provider) Interpretation: Performing Lab: Notes/Report: [facility] , Erythrocyte Sedimentation Rate 41 <=20 mm/hr Performing Lab: see note ML - [facility] LB LDH (Not yet reviewed by pro vider) Interpretation: Performing Lab: Notes/Report: [facility] , Lactate Dehydrogenase 202 81-234 U/L Performing Lab: see note ML - [facility] LB CRP (Not yet reviewed by pro vider) Interpretation: Performing Lab: Notes/Report: [facility] , C Reactive Protein 0.74 <=0.50 mg/dL Performing Lab: see note ML - [facility] LB CBC AUTO DIFF (Not yet revie wed by provider) Interpretation: Performing Lab: Notes/Report: [facility] , White Blood Count 11.3 4.0-11.0 10 [...] 10 3/uL Performing Lab: see note - [facility] LB Reticulocyte Pct Auto (Not y et reviewed by provider) Interpretation: Performing Lab: Notes/Report: [facility] , Reticulocyte Pct Auto 1.53 0.60-3.10 % Performing Lab: see note - [facility] LB Erythrocyte Sedimentation Ra te (Not yet reviewed by provider) Interpretation: Performing Lab: Notes/Report: [facility] , Erythrocyte Sedimentation Rate 31 <=20 mm/hr Performing Lab: see note - [facility] LB IMMUNOGLOBULIN E, TOTAL (Not yet reviewed by provider) Interpretation: Performing Lab: Notes/Report: [facility] , Immunoglobulin E, Total 236 6-495 IU/mL [facility] [place], [place] [id number] Medicaid Eligibility Specialist: Jeanna Case MD, Phone: [phone] [facility] Performing Lab: see note - [facility] LB CBC AUTO DIFF (Not yet revie wed by provider) Interpretation: Performing Lab: Notes/Report: [facility] , White Blood Count 6.7 4.0-11.0 10 [...] Performing Lab: see note ML - [facility] LB Reason For Referral No Information Medications Medication SIG (Take, Route, Frequency, Duration) Notes Start Date End Date Status ARIPiprazole Active Methenamine Hippurate 1 GM 1 tablet Orally Twice a day; Duration: 30 days 09/03/2024 Active Pantoprazole Sodium Active metFORMIN HCl ER 500 MG Oral; Duration: 30 Days Active Meloxicam 15 MG Oral; Duration: 30 Days Not-Taking Lisinopril 10 MG Oral; Duration: 90 Days Active Baclofen 10 MG TAKE 1 TABLET BY MABEL TH THREE TIMES DAILY NEEDED Oral; Duration: 30 Days Not-Taking valACYclovir HCl 1 GM TAKE 1 TABLET BY M OUT TWICE DAILY FOR 10 DAYS (MORNING AND BEFORE BED) Oral; Duration: 10 Days Active Albuterol Active Multi-Vitamin Active lamoTRIgine 25 MG Oral; Duration: 30 Days Active Gabapentin 300 MG Oral; Duration: 30 Days Not-Taking Myrbetriq 25 MG 1 tablet Orally Once a day; Duration: 30 days 01/04/2025 Active DULoxetine HCl 60 MG TAKE 2 CAPSULES BY MOUTH ONCE DAILY Oral; Duration: 90 Days Active Social History Tobacco Use: [...] W/U Status Risk Notes Problem Chronic cystitis (47240785) Other chronic cystitis without hematuria (N30.20) Active confirmed Vital Signs Height 64 in 01/04/2025 Weight 338.4 lbs 01/04/2025 BMI 58.08 kg/m2 01/04/2025 Encounters Encounter Location Date Provider Diagnosis [facility] On[facility] [address] [place] [phone] 06/29/[address] [address] 10/12/2024 Tiffanie [facility] Oncology [address] [place] [phone] 01/04/2025 Tiffanie [facility] [address] [place] [address] 01/04/2025 Aaron Eastman Other chronic cystitis without hematuria N30.20 and Vaginal voiding N39.[address] [place] [address] 09/03/2024 Aaron Eastman Other chronic cystitis without hematuria N30.[address] [address] 07/13/[address] [address] 07/19/2024 Tiffanie [facility] Oncology [address] [place] [phone] 07/26/2024 Tiffanie [facility] Assessments Encounter Date Diagnosis (ICD Code) Assessment [...] Villalobos , 06/07/2025 08:30:00 AM, [address] [place], [address], Insurance Providers Payer Name Payer Address Payer Phone Subscriber Number Group Number Insured Name Patient Relationship to Insured Coverage Start Date Coverage End Date [employer] [place] MEDICA[employer] [address] [place] [address] [id number] Ashly Mehta Self - patient is the insured Medical (General) History Medical History History ICD Code Arthritis seizures bipolar disorder asthma depression hypertension attention deficit hyperactivity disorder PCOS Surgical History Surgery Date(Month/Year) Endoscopy Colonoscopy L4-L5 back ablation Teeth removal dilatation and curettage, Hysteroscopy Laparoscopy Cholecystectomy Colposcopy- multiple
--- OUTSIDE RECORDS SUMMARY | 2025-05-12 10:35 | XMS_ITS | Clinical Summary ---
Author Organization [facility] Address [address] [place] [address] Care Team Providers Care Vacuum Drier Operator Name Role Phone Unavailable Primary Care [...]
--- OUTSIDE RECORDS SUMMARY | 2025-05-12 10:36 | XMS_ITS | Clinical Summary ---
Author Organization [employer] Address [id number] [address] [place] [address] Care Team Providers Care Electric Power Line Repairer Name Role Phone Manisha Marc Primary Care [...] cystoscopy. Potential retrograde pyelogram. CT urogram cytology. [facility] bladder solution Hematuria, microscopic 06/03/2018 Overview (06/03/2018): [...] Date Last Done Comments Depression Screening 2003 DTaP,Tdap and Td Vaccines (1 - Tdap) 2010 Adult BMI Screening 04/14/2025 04/14/2024 Tobacco Screening 04/14/2025 04/14/2024 COVID-19 Vaccine ( - season) 2025, 02/10/2021 Influenza Vaccine 04/18/2025 Pap Smear 11/02/2026 11/03/2023, 10/28/2022 Medical Devices Not on file Insurance MEDICAID [facility] MEDICAID Care Teams Electric Power Line Repairer Relationship Specialty Start Date End Date Manisha Marc APRN-NP [address] [facility] [place] [address] PCP - General Nurse Practitioner 04/14/24
--- OUTSIDE RECORDS SUMMARY | 2025-05-12 10:37 | XMS_ITS | CCD ---
Author Organization [facility] Care Team Providers Care Inside Sales Name Role Phone BRENT KINNEY Referring Unavailable BRENT KINNEY Attending Unavailable BRENT KINNEY Admitting Unavailable Michelle Ernandez Unavailable VIOLA, DR NUR Consulting Unavailable BURNSVILLE, DR NUR Admitting Unavailable HOUSE, DR NUR Primary Care Unavailable BURNSVILLE, DR NUR Attending Unavailable ZIEBER, DR SUGEY [...] Unavailable Celio Mullins Unavailable Manisha Marc Unavailable [phone] ROSITA Marc Primary Care Provider ROSITA Marc Attending Provider DO Celio Mullins Attending Provider ROSITA Marc Primary Care Provider MD Clinton Frazier Attending Provider ROSITA Marc Attending Provider ROSITA Marc Primary Care Provider DO Celio Mullins Attending Provider MD Edward Gilmore Attending Provider [phone] MD Clinton Frazier Attending Provider ROSITA Marc [...] Attending Provider ROSITA Hassan Attending Provider [phone] Thaddeus Rod MD Primary Care Provider Tari BECKER, Manisha Primary Care Provider Edward Gilmore MD Attending Provider [phone] Casandra Hassan APRN Attending Provider Tari BECKER, Manisha Attending Provider Tari BECKER, Manisha Primary Care Provider Edward Gilmore MD Attending Provider NO FAMILY, PHYSICIAN Primary Care Provider Unava ilable Ly DO, Hilaria L Attending Provider Tari BECKER, Manisha Primary Care Provider Edward Gilmore MD Attending Provider Manisha Marc APRN Attending Provider Edward Gilmore MD Attending Provider Ly DO, Hilaria L Attending Provider Manisha Marc APRN Primary Care Provider Edward Gilmore MD Attending Provider [phone] MELA ANDERSON Attending Unavailable GWEN COX Attending Unavailable MANISHA MARC Referring Unavailab MARIO Garcia Attending Unavailable GWEN COX Referring Unavailable CONSUELO LOVE Attending Unavailable MARKO OSCAR Attending Unavailable CONSUELO LOVE Attending Unavailable Tari BECKER, Manisha Primary Care Provider Wilfredo CROWLEY, Tiffanie Attending Provider [phone] Edward Gilmore MD Attending Provider [phone] Rohrbacher Manisha BECKER Attending Provider Edward Gilmore MD Attending Provider Sakina Real APRN Attending Provider Edward Gilmore MD Attending Provider Syed Leonard MD Attending Provider [phone] Edward Gilmore MD Attending Provider Casandra Hassan APRN Attending Provider [phone] Garret CROWLEY, Bud Denis Attending Unavailable Garret CROWLEY, Bud Denis Attending Unavailable Rohrbacher Manisha BECKER Primary Care Provider Edward Gilmore MD Attending Provider Edward Gilmore MD Attending Provider Manisha Sellers DNP Attending Provider Deirder CROWLEY, Edward Attending Provider Aidan Billings MD Attending Provider Em Garcia APRN Attending Provider Edward Gilmore Admitting Unavailab le Edward Gilmore Attending Unavailab le Rohrbacher, Manisha Primary Care Unavailable Ly, Hilaria L Admitting Unavailable Ly, Hilaria L Attending Unavailable Rohrbacher, Manisha Primary Care Unavailable Rohrbacher, Manisha Admitting Unavailable Rohrbacher, Manisha Attending Unavailable NO FAMILY, PHYSICIAN Primary Care Unavailable Rohrbacher, Manisha Admitting Unavailable Rohrbacher, Manisha Attending Unavailable Rohrbacher, Manisha Attending Unavailable Rohrbacher, Manisha Admitting Unavailable Casandra Hassan Admitting Unavailable Casandra Hassan Attending Unavailable Allergies Allergy Classification Reported Allergen(s) Allergy Type Date of Onset Reaction(s) Facility (20 sources) Amoxicillin; Translations: [AMOXICILLIN] Drug Allergy 07-08-20 16 [facility] Repository (20 sources) Cefaclor; Translations: [CEFACLOR] Drug Allergy 04-14-20 15 [facility] Repository (20 sources) Erythromycin; Translations: [ERYTHROMYCIN] Drug Allergy 04-14-20 15 hives, Rash [facility] Repository (19 sources) Cefaclor; Translations: [Ceclor] Drug Allergy 04-17-20 15 [facility] Repository (20 sources) Erythromycin Drug Allergy 04-17-20 15 Unknown Reaction, [facility] Repository (20 sources) Cephalosporins (Antibiotic); Translations: [Cephalosporins] Allergy to substance 12-10-19 Unknown Reaction, Rash [facility] (2 sources) Lactulose Drug Allergy 02-12-20 Unknown Reaction [facility] (6 sources) Baclofen; Translations: [baclofen] Drug Allergy 03-11-20 Unknown Reaction [facility] (1 source) Erythromycin Drug Allergy 04-21-20 [facility] Repository Medications Current Medications Medication Drug Class(es) Dates Sig (Normalized) Sig (Original) [id number] 200 actuat albuterol 0.09 mg/actuat metered dose [...] every six hours as needed for wheezing take 2 puff(s) by in halation every [...] take 1 tablet by mouth once daily Start: 03-05-2020 End: 12-07-2021 take 1 tablet by mouth once daily Aripiprazole 5 mg Tablet Discontinued 5 MG PO Daily March 05, 2020 12:00am December 07, 2021 10:45am Savanna Masterson-Cate Corrales Active betamethasone 0.5 mg/ml / [...] take 1 capsule by mouth twice daily Start: 11-26-2023 End: 03-03-2025 take 2 capsules [...] take 1 tablet by mouth twice daily melatonin 10 mg oral tablet (20 sources) Start: 10-01-2023 End: 10-01-2023 take 1 tablet by mouth once daily at bedtime Start: 10-01-2023 End: 10-01-2023 take 1 mg [...] tablet 11 04/01/2024 04/01/2025 Active Start: 11-26-2023 Start: 11-26-2023 take 1000 mg by mout [...] Active methenamine hippurate 1000 mg oral tablet (13 sources) Start: 5 methocarbamol 500 mg oral tablet (9 sources) Muscle Relaxant Start: 5 take 1 tablet by mouth twice daily as needed 24 hr mirabegron 25 mg extended release oral tablet (9 sources) beta3-Adrenergic Agonist Start: 5 take 1 tablet by mouth every twenty-four hours Multiple Vitamins-Minerals (MULTI COMPLETE PO) (13 sources) Multiple Vitamins-Minerals (MULTI COMPLETE PO) Multi Complete Active Multivitamin preparation (20 sources) Start: 2 take 1 tablet by mouth once daily Multivitamin Active 1 TAB PO Daily December 07, 2021 12:00am Start: 12-07-2021 take 1 tablet by miranda th once daily Multivitamin Active 1 TAB PO Daily December 06, 2021 11:00pm Multivitamin Act rafal Multivitamin Tablet (16 sources) Start: 12-07-2021 take 1 tablet [...] PO Daily December 06, 2021 11:00pm ondansetron 8 mg oral tablet (15 sources) Serotonin-3 Receptor Antagonist Start: 04-21-2025 take 1 tablet by mouth every twelve hours as needed for nausea and vomiting Ondansetron Hcl 8 mg tablet Active 8 MG PO Every 12 hours as needed for nausea and vomiting April 21, 2025 12:00am Complies with drug therapy Start: 09-27-2024 End: 02-22-2025 take 1 tablet by mouth every eight hours as needed for nausea and vomiting Ondansetron 4 mg tablet,disintegrating Discontinued 4 MG PO Every 8 hours as needed for nausea and vomiting 05 21September 27, 2024 1:00am February 22, 2025 4:48pm Start: 07-07-2023 take 1 tablet by miranda th three times daily as needed Zofran 4 MG 1 tablet Orally tid prn ODT Jun, Active pantoprazole 40 mg delayed release oral tablet (16 sources) Proton Pump Inhibitor Start: 08-19-2024 take 1 tablet by mouth once daily pregabalin 75 mg oral capsule (5 sources) Start: 03-11-2025 take 1 capsule by mouth twice daily valACYclovir 1000 mg oral tablet (20 sources) [...] 12, 2020 7:16pm take 1 tablet by [facility] once daily valACYclovir (Valtrex) 500 MG tablet [...] 10/10/2023 11/03/2024 Discontinued take 1 capsule by [facility] every twenty-four hours Vraylar 1.5 MG [...] Discontinued doxycycline hyclate 100 mg oral capsule (9 sources) Tetracycline-class Drug Start: 02-22-2025 End: 03-03-2025 [...] tablet Discontinued 325 MG PO Daily 90 April 22, 2024 12:00am August 09, [...] Provider: Tari Garnett take 1 capsule by [facility] once daily as needed Gabapentin 300 [...] hrs Not-Taking ibuprofen 800 mg oral tablet (19 sources) Nonsteroidal Anti-inflammatory Drug Start: 06-15-2024 End: [...] Toradol per 15 mg Jul, 60 mg lisinopril 10 mg oral tablet (20 sources) Angiotensin Converting Enzyme Inhibitor Start: 11-26-2023 End: 03-14-2025 take 1 tablet by mouth once daily Lisinopril 10 mg tablet Discontinued 10 MG PO Daily 90 90 September 29, 2024 1:08pm March 14, 2025 7:46am Start: 10-01-2023 End: 11-26-2023 take 10 mg [...] for 90 days Active Lisinopril Activ e meloxicam 15 mg oral tablet (20 sources) [...] 2021 10:46am niacin 500 mg oral tablet (20 sources) Nicotinic Acid Start: 11-26-2023 End: 04-21-2024 Niacin (Inositol Niacinate) 500 mg tablet Discontinued TAB PO November 26, 2023 12:00am April 21, 2024 2:37pm Start: 11-26-2023 End: 04-21-2024 Niacin (Inositol Niacinate) Discontinued TAB PO November 25, 2023 11:00pm April 21, 2024 1:37pm nitrofurantoin, macrocrystals 25 mg / nitrofurantoin, monohydrate 75 mg oral capsule (20 sources) Nitrofuran Antibacterial Start: 06-15-2024 End: 06-21-2024 take 1 capsule by mouth every twelve hours at mealtime Nitrofurantoin Monohyd/M-Cryst (Macrobid) 100 mg capsule Discontinued 100 MG PO Every 12 hours 05 22June 15, 2024 12:00am June 21, 2024 12:32pm must administer with a meal/food Start: 05-31-2021 take 1 capsule by mo [facility] every twelve hours Macrobid 100 MG 1 cap(s) Orally bid for 5 day(s) May, Active ofloxacin 3 mg/ml ophthalmic solution (3 sources) Quinolone Antimicrobial Start: 03-29-2025 End: 04-21-2025 take 0.3 drop(s) into the eye(s) four times daily Ofloxacin 0.3 % drops Discontinued 2 DROPS EYE-BOTH Four times daily 10 March 29, 2025 12:00am April 21, 2025 4:22pm phenazopyridine hydrochloride 200 mg oral tablet (20 [...] day(s) May, Active Sod Picosulf-Mag Ox-Citric Ac (14 sources) Start: 07-20-2024 End: 08-19-2024 take 1 [...] mg / trimethoprim 160 mg oral tablet (20 sources) Dihydrofolate Reductase Inhibitor Antibacterial, Sulfonamide Antimicrobial [...] 9:45am triamcinolone acetonide 1 mg/ml topical cream (6 sources) Corticosteroid Start: 02-22-2025 End: 03-11-2025 Triamcinolone Acetonide 0.1 % cream Discontinued 1 APPLIC TOPICAL Three times daily 15 February 22, 2025 12:00am March 11, 2025 12:18pm ubidecarenone 200 mg oral capsule (20 sources) Start: 11-26-2023 End: 04-21-2024 take 10 [...] giddiness] 11-03-2023 Episodic Deficiency and other anemia (20 sources) Iron deficiency anemia; Translations: [Iron deficiency anemia, unspecified] 06-08-2024 Episodic Delirium, dementia, and amnestic and other cognitive disorders (2 sources) Cognitive disorder; 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] 08-18-2024 Chronic Developmental disorders (16 sources) Communication disorder; 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, unspecified] 11-16-2024 Chronic Diabetes mellitus without complication (20 sources) Impaired fasting glucose; Translations: [Prediabetes] Episodic E Codes: Adverse effects of medical drugs (6 sources) Adverse reaction to drug; Translations: [Adverse [...] papillomavirus (HPV)] Onset: 06-17-2021 Resolved: 07-06-2021 Episodic Inflammation; infection of eye (except that caused by tuberculosis or sexually transmitteddisease) (4 sources) Bacterial conjunctivitis; Translations: [Unspecified conjunctivitis] 03-29-2025 Episodic Malaise and fatigue (20 sources) Fatigue; Translations: [Other fatigue] 04-22-2024 Episodic Menstrual disorders (20 sources) Amenorrhea; Translations: [Amenorrhea, unspecified] Onset: 03-07-2022 Chronic Mood disorders (20 sources) Recurrent major depression in partial remission; Translations: [Major depressive disorder, recurrent, in partial remission] Onset: 05-31-2024 Chronic Nausea and vomiting (1 source) Nausea with vomiting, unspecified Episodic Nutritional deficiencies (8 sources) Vitamin D deficiency; Translations: [Vitamin D [...] unspecified Episodic Other inflammatory condition of skin (8 sources) Scalp itchy; Translations: [Pruritus, unspecified] 03-11-2025 Episodic Other liver diseases (20 sources) Fatty (change of) liver, not elsewhere classified; Translations: [Nonalcoholic fatty liver disease] 06-21-2024 Chronic Other lower respiratory disease (19 sources) Snoring; Translations: [Snoring] 04-22-2024 Episodic Other lower respiratory disease (19 sources) Apnea; Translations: [Apnea, not elsewhere classified] [...] chronic pain Chronic Other nervous system disorders (20 sources) Aphasia; Translations: [Aphasia] 04-21-2024 Chronic Other [...] nutritional; endocrine; and metabolic disorders (4 sources) Severe obesity; Translations: [Class 3 severe obesity with body mass index (BMI) of 50.0 to 59.9 in adult] 04-15-2025 Chronic Other nutritional; endocrine; and metabolic disorders (17 sources) Abnormal weight gain; Translations: [Abnormal weight gain] Onset: 02-11-2023 02-11-2023 Episodic Other nutritional; endocrine; and metabolic disorders (8 sources) Failure to lose weight; Translations: [Other symptoms and signs concerning food and fluid intake] 03-22-2025 Episodic Other screening for suspected conditions (not mental disorders or infectious disease) (4 sources) Encounter for screening for malignant neoplasm of cervix; Translations: [ENC SCREENING MALIG NEOPLASM CERV] Onset: 10-28-2022 Episodic Other skin disorders (14 sources) Excessive sweating; Translations: [Generalized hyperhidrosis] 08-10-2024 Episodic Other skin disorders (4 sources) Generalized hyperhidrosis; Translations: [Generalized hyperhidrosis] 08-09-2024 Episodic Other skin disorders (11 sources) Localized swelling, mass and lump, head; Translations: [Swelling, mass, or lump in head and neck] 11-15-2024 Episodic Other upper respiratory infections (4 sources) Acute upper respiratory infection, unspecified; Translations: [Acute pharyngitis, unspecified] Onset: 06-17-2021 Resolved: 06-17-2021 Episodic Residual codes; unclassified (20 sources) Obstructive sleep apnea syndrome; Translations: [Obstructive sleep apnea (adult) (pediatric)] 06-21-2024 Chronic Residual codes; unclassified (5 sources) Obstructive sleep apnea (adult) (pediatric); Translations: [Obstructive sleep apnea (adult)(pediatric)] 06-21-2024 Chronic Residual codes; unclassified (20 sources) Amnesia; Translations: [Other amnesia] 04-21-2024 Episodic Residual codes; unclassified (20 sources) Personal history of other specified conditions; Translations: [History of seizure] 04-21-2024 Episodic Residual codes; unclassified (6 sources) Other amnesia; Translations: [Memory loss] 04-21-2024 Episodic Skin and subcutaneous tissue infections (14 sources) Cellulitis; Translations: [Cellulitis, unspecified] 08-28-2024 Episodic [...] sources) Anemia; Translations: [Anemia, unspecified] Onset: 02-11-2023 3 Episodic Deficiency and other anemia (4 sources) [...] [Paresthesia of skin] Onset: 05-31-2024 05-31-2024 Episodic Unclassified (3 sources) Contact with and (suspected) exposure to covid-19 Z20.822 Unclassified (1 source) Low back pain, unspecified M54.50 Viral infection (1 source) COVID-19 Onset: 07-06-2021 Resolved: 07-06-2021 Results Test Name Value Interpretation Reference Range Facility Basophils Auto (Bld) [#/Vol] Ordered By: Manisha Marc on 03-22-2025 Basophils (Bld) [#/Vol] 0.1 10 3/uL 0.0-0.1 [facility] Basophils/100 WBC Auto (Bld) Ordered By: Manisha Marc on 03-22-2025 Basophils/100 WBC (Bld) 0.8 % 0.2-2.0 F [facility] Cholesterol in LDL Calc [Mas s/Vol]Ordered By: Manisha Marc on 03-22-2025 Cholesterol in LDL [Mass/Vol] 90.4 mg/dL [facility] Comment on above: <100 mg/dl [id number] 0-129 mg/dl NEAR OR ABOVE [id number] mg/dl BORDERLINE [id number] mg/dl HIGH>190 mg/dl VERY HIGH Cholesterol in VLDL Calc [Ma ss/Vol]Ordered By: Manisha Marc on 03-22-2025 Cholesterol in VLDL [Mass/Vol] 27.6 mg/dL [facility] Eosinophils/100 WBC Auto (Bl d)Ordered By: Manisha Marc on 03-22-2025 Eosinophils/100 WBC (Bld) 1.6 % 0.9-7.0 [facility] Erythrocyte distribution wid th Auto (RBC) [Ratio]Ordered By: Manisha Marc on 03-22-2025 Erythrocyte distribution width (RBC) [Ratio] 12.6 % 11.0-15.0 [facility] Globulin Calc (S) [Mass/Vol] Ordered By: Manisha Marc on 03-22-2025 Globulin (S) [Mass/Vol] 4.1 g/dL F [facility] Glomerular filtration rate ( GFR) estimation in non- AmericanOrdered By: Manisha Marc on 03-22-2025 GFR/1.73 sq M.predicted among non-blacks MDRD (S/P/Bld) [Vol rate/Area] mL/min/{1.73_m2} >=60 mL/min/1.7 3m 2 [facility] Glucose mean value [Mass/vol ume] in Blood Estimated from glycated hemoglobinOrdered By: Manisha Marc on 03-22-2025 Average glucose Estimated from glycated hemoglobin (Bld) [Mass/Vol] 108 mg/dL [facility] Hematocrit Auto (Bld) [Volum e fraction]Ordered By: Manisha Marc on 03-22-2025 Hematocrit (Bld) [Volume fraction] 41.3 % 36.0-48.0 [facility] Hemoglobin A1c percentageOrd ered By: Manisha Marc on 03-22-2025 HbA1c (Bld) [Mass fraction] 5.4 % 4.5-6.2 [facility] Comment on above: ADA RECOMMENDED LIMI T 4.0 - 6.0ADA THERAPEUTIC TARGET < 7.0ACTION SUGGESTED> 7.0 Hemoglobin [Mass/volume] in BloodOrdered By: Manisha Marc on 03-22-2025 Hemoglobin (Bld) [Mass/Vol] 13.5 g/dL 12.0-16.0 [facility] Laboratory - Chemistry and C hemistry - challengeOrdered By: Manisha Marc on 03-22-2025 Albumin [Mass/Vol] 3.7 g/dL 3.4-5.0 [facility] ALP [Catalytic activity/Vol] 84 U/L 46-116 [facility] ALT [Catalytic activity/Vol] 61 U/L High 14-59 [facility] AST [Catalytic activity/Vol] 31 U/L 15-37 [facility] Bilirubin [Mass/Vol] 0.4 mg/dL 0.2-1.0 [facility] Calcium [Mass/Vol] 8.9 mg/dL 8.5-10.1 [facility] Chloride [Moles/Vol] 103 mmol/L 98-107 [facility] Cholesterol [Mass/Vol] 162 mg/dL <=200 Fi [facility] Cholesterol in HDL [Mass/Vol] 44 mg/dL 40-60 [facility] Comment on above: > or =60 mg/dl - LOW CARDIOVASCULAR RISK<40 mg/dl - HIGH CARDIOVASCULAR RISK CO2 [Moles/Vol] 26.0 mmol/L 21.0-32.0 [facility] Cobalamin (Vitamin B12) [Mass/Vol] 804 pg/mL 232-1245 [facility] Comment on above: Performed at: - [facility] [place] [id number] Director: Cassius Zhong PhD, Phone: [phone] Creatinine [Mass/Vol] 0.59 mg/dL 0.55-1.02 [facility] GFR/1.73 sq M.predicted MDRD (S/P/Bld) [Vol rate/Area] mL/min/{1.73_m2} >=60 mL/min/1.7 3m 2 [facility] Glucose [Mass/Vol] 98 mg/dL 74-106 [facility] Potassium [Moles/Vol] 4.3 mmol/L 3.5-5.1 [facility] Protein [Mass/Vol] 7.8 g/dL 6.4-8.2 [facility] Sodium [Moles/Vol] 138 mmol/L 136-145 [facility] Triglyceride [Mass/Vol] 138 mg/dL <=150 F [facility] TSH Qn 1.174 m[IU]/L 0.358-3.74 0 [facility] Urea nitrogen [Mass/Vol] 14.0 mg/dL 7.0-18.0 [facility] Urea nitrogen/Creatinine [Mass ratio] 23.7 mg/mg [facility] Laboratory - Hematology and Cell countsOrdered By: Manisha Marc on 03-22-2025 Immature granulocytes/100 WBC (Bld) 0.1 % 0.0-0.5 [facility] Leukocytes [#/volume] correc carmelita for nucleated erythrocytes in Blood by Automated counOrdered By: Manisha aMrc on 03-22-2025 WBC corrected for nucl RBC Auto (Bld) [#/Vol] 7.3 10 3/uL 4.0-11.0 [facility] Lymphocytes Auto (Bld) [#/Vo l]Ordered By: Manisha Marc on 03-22-2025 Lymphocytes (Bld) [#/Vol] 2.4 10 3/uL 1.2-3.8 [facility] Lymphocytes/100 WBC Auto (Bl d)Ordered By: Manisha Marc on 03-22-2025 Lymphocytes/100 WBC (Bld) 32.2 % 20.5-60.0 [facility] MCH Auto (RBC) [Entitic mass ]Ordered By: Manisha Marc on 03-22-2025 MCH (RBC) [Entitic mass] 29.8 pg 26.7-34.0 [facility] MCHC Auto (RBC) [Mass/Vol]Or dered By: Manisha Marc on 03-22-2025 MCHC (RBC) [Mass/Vol] 32.7 g/dL 29.9-35.2 [facility] MCV Auto (RBC) [Entitic vol] Ordered By: Manisha Marc on 03-22-2025 MCV (RBC) [Entitic vol] 91.2 fL 81.0-99.0 [facility] Monocytes Auto (Bld) [#/Vol] Ordered By: Manisha Marc on 03-22-2025 Monocytes (Bld) [#/Vol] 0.3 10 3/uL 0.3-0.8 [facility] Monocytes/100 WBC Auto (Bld) Ordered By: Manisha Marc on 03-22-2025 Monocytes/100 WBC (Bld) 4.5 % 1.7-12.0 [facility] Neutrophils Auto (Bld) [#/Vo l]Ordered By: Manisha Marc on 03-22-2025 Neutrophils (Bld) [#/Vol] 4.4 10 3/uL 1.4-6.5 [facility] Neutrophils/100 WBC Auto (Bl d)Ordered By: Manisha Marc on 03-22-2025 Neutrophils/100 WBC (Bld) 60.8 % 43.0-75.0 [facility] No Panel InformationOrdered By: Manisha Marc on 03-22-2025 25-Hydroxy Vitamin D Total 24.0 ng/mL [facility] Comment on above: <20 ng/mL Vit D defi cient20-<30 ng/mL Vit D -276 ng/mL Vit D sufficient>100 ng/mL Potential Toxicity Eosinophils # (Auto) 0.1 10 3/uL 0.0-0.7 [facility] Immature Granulocyte # (Auto) 0.01 10 3/uL 0.00-0.03 [facility] Platelet mean volume Auto (B ld) [Entitic vol]Ordered By: Manisha Marc on 03-22-2025 Platelet mean volume (Bld) [Entitic vol] 9.5 fL 9.5-13.5 [facility] Platelets Auto (Bld) [#/Vol] Ordered By: Manisha Marc on 03-22-2025 Platelets (Bld) [#/Vol] 251 10 3/uL 150-450 [facility] RBC Auto (Bld) [#/Vol]Ordere d By: Manisha Marc on 03-22-2025 RBC (Bld) [#/Vol] 4.53 10 6/uL 4.20-5.40 [facility] Serum or plasma albumin/glob ulin mass ratioOrdered By: Manisha Marc on 03-22-2025 Albumin/Globulin [Mass ratio] 0.9 {ratio} [facility] Serum or plasma anion gap de terminationOrdered By: Manisha Marc on 03-22-2025 Anion gap [Moles/Vol] 13.3 mmol/L [facility] Serum or plasma total choles terol/high density lipoprotein (HDL) cholesterol mass ratOrdered By: Manisha Marc on 03-22-2025 Cholesterol.total/Mali sterol in HDL [Mass ratio] 3.7 {ratio} [facility] Comment on above: 3.3 - 4.4 LOW RISK4. 4 - 7.1 AVERAGE RISK7.1 - 11.0 MODERATE RISK>11.0 HIGH RISK Laboratory - Chemistry and C hemistry - challengeOrdered By: Manisha Marc on 02-17-2025 Bilirubin Ql (U) Negative [facility] Glucose (U) [Mass/Vol] Negative [facility] Ketones Ql (U) Positive [facility] pH (U) 5.0 [pH] [facility] Specific gravity (U) [Rel density] 1.010 [facility] Urobilinogen (U) [Mass/Vol] 0.2 mg/dL [facility] Laboratory - Specimen inform ationOrdered By: Manisha Marc on 02-17-2025 Appearance (U) Cloudy [facility] Color (U) Turbid [facility] Laboratory - UrinalysisOrder ed By: Manisha Marc on 02-17-2025 Leukocyte esterase Test strip Ql (U) +3 [facility] [facility] Nitrite Ql (U) Positive [facility] Protein Ql (U) Positive [facility] No Panel InformationOrdered By: Manisha Marc on 02-17-2025 Urine Occult Blood Negative [facility] Urine Cultureon 02-17-2025 Bacteria identified Cx Nom (U) ORGANISM: Escherichia coli (O:ESCCOL) Roseboom Count >100,000 Aerobic RENATE Charge (NMIC56) -- [...] RESISTANT TO ALL B-LACTAM DRUGS. PERFORMED BY: [place] [address] PATHOLOGIST BLADE FILER KVNG CONLEY M.D. Normal [facility] Comment on above: Performed By: #### C UU #### [address] Urine cultureOrdered By: Keesha Marc on 02-17-2025 Bacteria identified Cx Nom (U) Escherichia coli Abnormal [facility] Outside Recordson 02-02-2025 Outside Records [id number] 031 [id number]#1.00O TGTIFF Normal [facility] Outside Records [id number] [id number]#1.00O TGTIFF Normal [facility] Outside Records [id number]#1.00O TGTIFF Normal [facility] Outside Records [id number]#1.00O TGTIFF Normal [facility] Outside Records [id number] [id number]#1.00O TGTIFF Normal [facility] Outside Records [id number]#1.00O TGTIFF Normal [facility] Hospital Outside Records [id number] [id number]#1.00O TGTIFF Normal [facility] Hospital Outside Records [id number] [id number]#1.00O TGTIFF Normal [facility] Outside Records [id number] [id number]#1.00O [facility] Outside Records [id number] 031 [id number]#1.00O [facility] Outside Records [id number] [id number]#1.00O [facility] Normal [facility] Albumin [Mass/volume] in Ser um or Plasmaon 12-28-2024 Albumin [Mass/Vol] 3.4 g/dL 2.9-4.4 [facility] Basophils Auto (Bld) [#/Vol] on 12-28-2024 Basophils (Bld) [#/Vol] 0.1 10 3/uL 0.0-0.1 [facility] Basophils/100 WBC Auto (Bld) on 12-28-2024 Basophils/100 WBC (Bld) 0.8 % 0.2-2.0 F [facility] Eosinophils/100 WBC Auto (Bl d)on 12-28-2024 Eosinophils/100 WBC (Bld) 2.0 % 0.9-7.0 [facility] Erythrocyte distribution wid th Auto (RBC) [Ratio]on 12-28-2024 Erythrocyte distribution width (RBC) [Ratio] 12.1 % 11.0-15.0 [facility] Hematocrit Auto (Bld) [Volum e fraction]on 12-28-2024 Hematocrit (Bld) [Volume fraction] 41.5 % 36.0-48.0 [facility] Hemoglobin [Mass/volume] in Bloodon 12-28-2024 Hemoglobin (Bld) [Mass/Vol] 13.6 g/dL 12.0-16.0 [facility] IgA [Mass/volume] in Serum o r Plasmaon 12-28-2024 IgA [Mass/Vol] 122 mg/dL 87-352 [facility] IgE [Units/volume] in Serum or Plasmaon 12-28-2024 IgE Qn 236 [IU]/mL 6-495 [facility] Comment on above: Performed at: [facility] - [facility] [address] [id number] Director: Jeanna Case MD, Phone: [phone] IgG [Mass/volume] in Serum o r Plasmaon 12-28-2024 IgG [Mass/Vol] 1135 mg/dL 586-1602 [facility] IgM [Mass/volume] in Serum o r Plasmaon 12-28-2024 IgM [Mass/Vol] 105 mg/dL 26-217 [facility] Immunoglobulin light chains. kappa.free [Mass/volume] in Serumon 12-28-2024 Immunoglobulin light chains.kappa.free (S) [Mass/Vol] 18.1 mg/L 3.3-19.4 [facility] Immunoglobulin light chains. kappa.free/Immunoglobulin light chains.lambda.free [Katelin 12-28-2024 Immunoglobulin light chains.kappa.free/Immun oglobulin light chains.lambda.free (S) [Mass ratio] 0.92 0.26-1.65 [facility] Comment on above: Performed at: [facility] - [facility] [address] [id number] Director: Cassius Zhong PhD, Phone: [phone] Immunoglobulin light chains. lambda.free [Mass/volume] in Serum or Plasmaon 12-28-2024 Immunoglobulin light chains.lambda.free [Mass/Vol] 19.6 mg/L 5.7-26.3 [facility] Laboratory - Chemistry and C hemistry - challengeon 12-28-2024 LDH [Catalytic activity/Vol] 190 U/L 81-234 [facility] Laboratory - Hematology and Cell countson 12-28-2024 ESR (Bld) [Velocity] 31 mm/h High <=20 [facility] Immature granulocytes/100 WBC (Bld) 0.2 % 0.0-0.5 [facility] Leukocytes [#/volume] correc carmelita for nucleated erythrocytes in Blood by Automated counon 12-28-2024 WBC corrected for nucl RBC Auto (Bld) [#/Vol] 6.7 10 3/uL 4.0-11.0 [facility] Lymphocytes Auto (Bld) [#/Vo l]on 12-28-2024 Lymphocytes (Bld) [#/Vol] 2.5 10 3/uL 1.2-3.8 [facility] Lymphocytes/100 WBC Auto (Bl d)on 12-28-2024 Lymphocytes/100 WBC (Bld) 37.0 % 20.5-60.0 [facility] MCH Auto (RBC) [Entitic mass ]on 12-28-2024 MCH (RBC) [Entitic mass] 30.6 pg 26.7-34.0 [facility] MCHC Auto (RBC) [Mass/Vol]on 12-28-2024 MCHC (RBC) [Mass/Vol] 32.8 g/dL 29.9-35.2 [facility] MCV Auto (RBC) [Entitic vol] on 12-28-2024 MCV (RBC) [Entitic vol] 93.5 fL 81.0-99.0 F [facility] Monocytes Auto (Bld) [#/Vol] on 12-28-2024 Monocytes (Bld) [#/Vol] 0.3 10 3/uL 0.3-0.8 [facility] Monocytes/100 WBC Auto (Bld) on 12-28-2024 Monocytes/100 WBC (Bld) 4.8 % 1.7-12.0 [facility] Neutrophils Auto (Bld) [#/Vo l]on 12-28-2024 Neutrophils (Bld) [#/Vol] 3.7 10 3/uL 1.4-6.5 [facility] Neutrophils/100 WBC Auto (Bl d)on 12-28-2024 Neutrophils/100 WBC (Bld) 55.2 % 43.0-75.0 [facility] No Panel Informationon 12-28 C-Reactive Protein, Quantitative 0.96 mg/dL High <=0.50 [facility] Eosinophils # (Auto) 0.1 10 3/uL 0.0-0.7 [facility] Immature Granulocyte # (Auto) 0.01 10 3/uL 0.00-0.03 [facility] Protein Electrophoresis M-Manpreet Not Observed g/dL Not Observed [facility] Protein Electrophoresis Note Comment . [facility] Comment on above: Protein electrophore sis scan will follow via computer,mail, or physician office specialist delivery. Platelet mean volume Auto (B ld) [Entitic vol]on 12-28-2024 Platelet mean volume (Bld) [Entitic vol] 9.5 fL 9.5-13.5 [facility] Platelets Auto (Bld) [#/Vol] on 12-28-2024 Platelets (Bld) [#/Vol] 191 10 3/uL 150-450 [facility] Protein [Mass/volume] in Ser um or Plasmaon 12-28-2024 Protein [Mass/Vol] 6.6 g/dL 6.0-8.5 [facility] RBC Auto (Bld) [#/Vol]on RBC (Bld) [#/Vol] 4.44 10 6/uL 4.20-5.40 [facility] Reticulocytes/100 RBC Auto ( Bld)on 12-28-2024 Reticulocytes/100 RBC (Bld) 1.53 % 0.60-3.10 [facility] Serum globulin measurement ( mass/volume)on 12-28-2024 Globulin (S) [Mass/Vol] 3.2 g/dL 2.2-3.9 F [facility] Serum or plasma albumin/glob ulin mass ratioon 12-28-2024 Albumin/Globulin [Mass ratio] 1.1 {ratio} 0.7-1.7 [facility] Serum or plasma alpha 1 glob ulin measurement by electrophoresis (mass/volume)on 12-28-2024 Alpha 1 globulin Elph [Mass/Vol] 0.2 g/dL 0.0-0.4 [facility] Serum or plasma alpha 2 glob ulin measurement by electrophoresis (mass/volume)on 12-28-2024 Alpha 2 globulin Elph [Mass/Vol] 0.8 g/dL 0.4-1.0 [facility] Serum or plasma beta globuli n measurement by electrophoresis (mass/volume)on 12-28-2024 Beta globulin Elph [Mass/Vol] 1.0 g/dL 0.7-1.3 [facility] Serum or plasma gamma globul in measurement by electrophoresis (mass/volume)on 12-28-2024 Gamma globulin Elph [Mass/Vol] 1.1 g/dL 0.4-1.8 [facility] Serum or plasma immunoelectr ophoresis interpretationon 12-28-2024 Interpretation IEP [Interp] Comment . [facility] Comment on above: No monoclonality det ected. [...] by JACQUELINE YUEN II, MD, PHD at 16-Apr-2025 12:04:08 AM [facility] Normal Not Available Comment on above: Order Comment: US PE LVIS-TRANSVAG IF INDICATED No LMP recorded. HCG ( test) Ql (U)o n 11-03-2024 Interpretation and review of laboratory results Normal [facility] Preg Test, Ur Negative Negative [facility] Human papilloma virus 16+18+ 31+33+35+39+45+51+52+56+58+59+66+68 DNA [Presence] in [place] 11-03-2024 HPV 16+18+31+33+35+39+45+51 +52+56+58+59+66+68 DNA Probe+sig amp Ql (Cvx) Human papilloma virus 16+18+31+33+35+39+45+51 +52+56+58+59+66+68 DNA [Presence] in Cer Negative [facility] Comment on above: This nucleic acid am plification test detects fourteen high-risk HPV types (16,18,31,33,35,39,45,51,52,56,58,59,66,68)without differentiation.Performed at: =G - [facility] [address] [id number] Director: Monse Cardona MD, Phone: [phone] at: - [facility] [address] [id number] Director: Monse Cardona MD, Phone: [phone] No Panel Informationon 11-03 HPV High Risk Other Comment Note . [facility] Comment on above: TESTS RESULT FLAG UN ITS REF RANGE LAB -DIAGNOSIS: 02 NEGATIVE FOR INTRAEPITHELIAL LESION OR MALIGNANCY.Specimen adequacy: 02 Satisfactory for evaluation. Endocervical and/or squamous metaplastic cells (endocervical component) are present.Performed by: 02 Hiro Garces, Radiation Control Worker (ASCP). 02Note: Note 02 The Pap smear [...] Low,>-Panic High,A-Abnormal,AA-Critical Abnormal ------Performed at:02 WB [facility] [address] [place] [address] Monse Cardona MD, Reference Lab Test Patient Age Note . [facility] Comment on above: TESTS RESULT FLAG UN ITS REF RANGE LAB - Clinician Provided Cytology Information Source.............Cervix;Endocervix No. of containers..01 ThinPrep VialAge Leeo KARRIE Elise... 30-65 FLAG LEGEND: L-Low Normal,H-High Normal,LL-Alert Low,HH-Alert High <-Panic Low,>-Panic High,A-Abnormal,AA-Critical Abnormal ------Performed at:01 =[facility] [address] [place] [address] Monse Cardona MD, Basophils Auto (Bld) [#/Vol] on 10-12-2024 Basophils (Bld) [#/Vol] Automated basoph il count 0.0-0.1 [facility] Basophils/100 WBC Auto (Bld) on 10-12-2024 Basophils/100 WBC (Bld) Automated basophil % 0. 2-2.0 [facility] Eosinophils/100 WBC Auto (Bl d)on 10-12-2024 Eosinophils/100 WBC (Bld) Automated eosinophil % 0.9-7.0 [facility] Erythrocyte distribution wid th Auto (RBC) [Ratio]on 10-12-2024 Erythrocyte distribution width (RBC) [Ratio] Erythrocyte distribution width [Ratio] by Automated count 11.0-15.0 [facility] Estimated glomerular filtrat ion rate (GFR) non- Americanon 10-12-2024 GFR/1.73 sq M.predicted among non-blacks MDRD (S/P/Bld) [Vol rate/Area] Estimated glomerular filtration rate (GFR) non- >=60 mL/min/1.7 3m 2 [facility] Hematocrit Auto (Bld) [Volum e fraction]on 10-12-2024 Hematocrit (Bld) [Volume fraction] Hematocrit [Volume Fraction] of Blood by Automated count 36.0-48.0 [facility] Hemoglobin [Mass/volume] in Bloodon 10-12-2024 Hemoglobin (Bld) [Mass/Vol] Hemoglobin [Mass/volume] in Blood 12.0-16.0 [facility] Iron binding capacity [Mass/ volume] in Serum or Plasmaon 10-12-2024 Iron binding capacity [Mass/Vol] Iron binding capacity [Mass/volume] in Serum or Plasma 250.0-450. 0 [facility] Iron saturation [Mass Fracti on] in Serum or Plasmaon 10-12-2024 Iron saturation [Mass fraction] Iron saturation [Mass Fraction] in Serum or Plasma [facility] Laboratory - Chemistry and C hemistry - challengeon 10-12-2024 Calcium [Mass/Vol] 9.0 mg/dL 8.5-10.1 [facility] Chloride [Moles/Vol] 104 mmol/L 98-107 [facility] CO2 [Moles/Vol] 26.8 mmol/L 21.0-32.0 [facility] Creatinine [Mass/Vol] 0.73 mg/dL 0.55-1.02 [facility] Ferritin [Mass/Vol] 321.0 ng/mL High 8.0-252.0 [facility] GFR/1.73 sq M.predicted MDRD (S/P/Bld) [Vol rate/Area] mL/min/{1.73_m2} >=60 mL/min/1.7 3m 2 [facility] Glucose [Mass/Vol] 89 mg/dL 74-106 [facility] Iron [Mass/Vol] 70.0 ug/dL 50.0-170.0 [facility] Potassium [Moles/Vol] 4.4 mmol/L 3.5-5.1 [facility] Sodium [Moles/Vol] 138 mmol/L 136-145 [facility] Urea nitrogen [Mass/Vol] 10.0 mg/dL 7.0-18.0 [facility] Urea nitrogen/Creatinine [Mass ratio] 13.7 mg/mg [facility] Laboratory - Hematology and Cell countson 10-12-2024 ESR (Bld) [Velocity] 46 mm/h High <=20 [facility] Immature granulocytes/100 WBC (Bld) 0.3 % 0.0-0.5 [facility] Leukocytes [#/volume] correc carmelita for nucleated erythrocytes in Blood by Automated counon 10-12-2024 WBC corrected for nucl RBC Auto (Bld) [#/Vol] Leukocytes [#/volume] corrected for nucleated erythrocytes in Blood by Automated coun 4.0-11.0 [facility] Lymphocytes Auto (Bld) [#/Vo l]on 10-12-2024 Lymphocytes (Bld) [#/Vol] Lymphocytes [#/volume] in Blood by Automated count 1.2-3.8 [facility] Lymphocytes/100 WBC Auto (Bl d)on 10-12-2024 Lymphocytes/100 WBC (Bld) Lymphocytes/100 leukocytes in Blood by Automated count 20.5-60.0 [facility] MCH Auto (RBC) [Entitic mass ]on 10-12-2024 MCH (RBC) [Entitic mass] MCH [Entitic mass] by Automated count 26.7-34.0 [facility] MCHC Auto (RBC) [Mass/Vol]on 10-12-2024 MCHC (RBC) [Mass/Vol] MCHC [Mass/volume] by Automated count 29.9-35.2 [facility] MCV Auto (RBC) [Entitic vol] on 10-12-2024 MCV (RBC) [Entitic vol] MCV [Entitic vol ume] by Automated count 81.0-99.0 [facility] Monocytes Auto (Bld) [#/Vol] on 10-12-2024 Monocytes (Bld) [#/Vol] Automated blood monocyte count 0.3-0.8 [facility] Monocytes/100 WBC Auto (Bld) on 10-12-2024 Monocytes/100 WBC (Bld) Automated monocyte % 1. 7-12.0 [facility] Neutrophils Auto (Bld) [#/Vo l]on 10-12-2024 Neutrophils (Bld) [#/Vol] Neutrophils [#/volume] in Blood by Automated count 1.4-6.5 [facility] Neutrophils/100 WBC Auto (Bl d)on 10-12-2024 Neutrophils/100 WBC (Bld) Automated neutrophil % 43.0-75.0 [facility] No Panel Informationon 10-12 C-Reactive Protein, Quantitative 1.07 mg/dL High <=0.50 [facility] Eosinophils # (Auto) 0.2 10 3/uL 0.0-0.7 [facility] Immature Granulocyte # (Auto) 0.03 10 3/uL 0.00-0.03 [facility] Platelet mean volume Auto (B ld) [Entitic vol]on 10-12-2024 Platelet mean volume (Bld) [Entitic vol] Platelet mean volume [Entitic volume] in Blood by Automated count Low 9.5-13.5 [facility] Platelets Auto (Bld) [#/Vol] on 10-12-2024 Platelets (Bld) [#/Vol] Platelets [#/vol ume] in Blood by Automated count 150-450 [facility] RBC Auto (Bld) [#/Vol]on RBC (Bld) [#/Vol] Erythrocytes [#/volu me] in Blood by Automated count 4.20-5.40 [facility] Serum or plasma anion gap de terminationon 10-12-2024 Anion gap [Moles/Vol] Serum or plasma an ion gap determination [facility] Influenza virus B Ag [Presen ce] in Upper respiratory specimen by Rapid immunoassayon 09-27-2024 FLUBV Ag IA.rapid Ql (Nph) Influenza virus B Ag [Presence] in Upper respiratory specimen by Rapid immunoassay [facility] No Panel Informationon 09-27 Influenza Type A (Rapid) Negative [facility] POC SARS CoV-2 Antigen Negative [facility] Iron binding capacity [Mass/ volume] in Serum or Plasmaon 08-24-2024 Iron binding capacity [Mass/Vol] Iron binding capacity [Mass/volume] in Serum or Plasma 250.0-450. 0 [facility] Iron saturation [Mass Fracti on] in Serum or Plasmaon 08-24-2024 Iron saturation [Mass fraction] Iron saturation [Mass Fraction] in Serum or Plasma [facility] Laboratory - Chemistry and C hemistry - challengeon 08-24-2024 Iron [Mass/Vol] 81.0 ug/dL 50.0-170.0 [facility] Measles virus IgG Ab [Units/ volume] in Serum by Immunoassayon 08-24-2024 MeV IgG IA Qn (S) Measles virus IgG Ab [Units/volume] in Serum by Immunoassay Immune >16.4 [facility] Comment on above: Negative <13.5 Equiv ocal 13.5 - 16.4 Positive >16.4Presence of antibodies to Rubeola is presumptive evidenceof immunity except when acute infection is suspected. No Panel Informationon 08-24 Rubella IgG Antibody <0.90 index Abnormal Immune >0.99 [facility] Comment on above: Non-immune <0.90 Equ ivocal 0.90 - 0.99 Immune >0.99 Serum mumps virus IgG antibo dy assay (units/volume)on 08-24-2024 MuV IgG Qn (S) Serum mumps virus Ig G antibody assay (units/volume) Abnormal Immune >10.9 [facility] Comment on above: Negative <9.0 Equivo heike 9.0 - 10.9 Positive >10.9A positive result generally indicates past exposure toMumps virus or previous vaccination.Performed at: [facility] [id number] Director: Cassius Zhong PhD, Phone: [phone] Pathology study report docum entOrdered By: Thaddeus Shah on 08-20-2024 Pathology study [facility] Other HCG ( test) ALIE.lion d Ql (U)Ordered By: Hilaria Burgos on 08-19-2024 HCG ( test) Ql (U) Urine human chorionic gonadotropin (hCG) detection by immunoassay [facility] HCG,Urineon 08-19-2024 Beta HCG ( test) Ql (U) Negative Normal [facility] Comment on above: Result Comment: PERF ORMED BY: [address] [place] [id number] PATHOLOGIST BLADE FILER RYLAN EBNEDICT M.D. Performed By: #### U HCG #### [address] Justyn 08-19-2024 L --- Specimen: [id number] Received: 08/19/24 Status: ARLINE Salter Num: [id number] Spec Type: Surgical Subm Dr: Hilaria Burgos DO Tissues: A Small Intestine - Biopsy/Polyp (SM BOWEL BX R/O CELIAC) B GASTRIC FOR HP (GASTRIC BX R/O H PYLORI) C Esophagus Biopsy (GE JUNCTION BX / ESOPHAGITIS) Procedures: OMAR SMALLS/, Gross/Micro L4/3, H PYLORI Age/ Patient Sex Location Account Attending Physician Ashly Mehta 33/F [id number] Hilaria Burgos DO SPEC NUM: [id number] RECD: 08/19/24 STATUS: ARLINE REZAJaison NUM: [id number] GRADY: 08/19/24-[address]: Hilaria Burgos DO ENTERED: 08/19/[address]: SPEC TYPE: Surgical DEPT: S ENTERED BY: [id number] RECV BY: [id number] ORDERED: PAS - LGRN, HE/6, Gross/Micro L4/3, [...] esophagitis Specimen: [id number] Received: 08/19/24 Status: ARLINE Rezajaison Num: [id number] Spec Type: Surgical Subm Dr: Hilaria Burgos DO Tissues: A Small Intestine - Biopsy/Polyp (SM BOWEL BX R/O CELIAC) B GASTRIC FOR HP (GASTRIC BX R/O H PYLORI) C Esophagus Biopsy (GE JUNCTION BX / ESOPHAGITIS) Procedures: PAS - LGRN, HE/6, Gross/Micro L4/3, H PYLORI Patient: Ashly Mehta [id number] (Continued) Specimen: [id number] Received: 08/19/24 (Continued) Signed (signature on file) Thaddeus Shah Jr., MD 08/20/24 1417 Specimen: Received: 08/19/24 Status: ARLINE Joie Num: [id number] Spec Type: Surgical Subm Dr: Hilaria Burgos DO Tissues: A Small Intestine - Biopsy/Polyp (SM BOWEL BX R/O CELIAC) B GASTRIC FOR HP (GASTRIC BX R/O H PYLORI) C Esophagus Biopsy (GE JUNCTION BX / ESOPHAGITIS) Procedures: SHEILA KIRK, HE/6, Gross/Micro L4/3, H PYLORI Patient: Ashly Mehta [id number] (Continued) Specimen: Received: 08/19/24 (Continued) Gross Description Part A is received in formalin labeled with the patients name, date of , and small bowel BX are 2 leal-green, focally erythematous, friable, 0.3 cm each in greatest dimension tissue bits. The specimen is entirely submitted in a single cassette. (1, ns, S212-26 A) JG Part B is received in formalin labeled with the patients name, date of , and gastric BX are 2 leal-green, focally erythematous, friable, 0.3 cm each in greatest dimension tissue bits. The specimen is entirely submitted in a single cassette. (1, ns, S25- B) Part C is received in formalin labeled with the patients name, date of , and GE junction BX are 2 lela-green, focally erythematous, friable, 0.2 and 0.3 cm [...] negative with a satisfactory control. CPT Codes 33473 x 3, 85095, 23375 -- (more content not included)... Normal [facility] Urine Cultureon 08-09-2024 Bacteria identified Cx Nom (U) ORGANISM: Escherichia coli (ESBL) (O:ESCCOLESBL) Roseboom Count >100,000 Aerobic RENATE Charge (NMIC56) -- [...] RESISTANT TO ALL B-LACTAM DRUGS. PERFORMED BY: [place] [address] PATHOLOGIST BLADE FILER RYLAN BENEDICT M.D. Normal [facility] Comment on above: Performed By: #### C UU #### [address] Urine cultureOrdered By: Keesha Marc on 08-09-2024 Bacteria identified Cx Nom (U) Abnormal [facility] Albumin [Mass/volume] in Ser um or Plasmaon 06-29-2024 Albumin [Mass/Vol] Albumin [Mass/volume ] in Serum or Plasma 2.9-4.4 [facility] Basophils Auto (Bld) [#/Vol] on 06-29-2024 Basophils (Bld) [#/Vol] Automated basoph il count 0.0-0.1 [facility] Basophils/100 WBC Auto (Bld) on 06-29-2024 Basophils/100 WBC (Bld) Automated basophil % 0. 2-2.0 [facility] Eosinophils/100 WBC Auto (Bl d)on 06-29-2024 Eosinophils/100 WBC (Bld) Automated eosinophil % 0.9-7.0 [facility] Erythrocyte distribution wid th Auto (RBC) [Ratio]on 06-29-2024 Erythrocyte distribution width (RBC) [Ratio] Erythrocyte distribution width [Ratio] by Automated count High 11.0-15.0 [facility] Hematocrit Auto (Bld) [Volum e fraction]on 06-29-2024 Hematocrit (Bld) [Volume fraction] Hematocrit [Volume Fraction] of Blood by Automated count 36.0-48.0 [facility] Hemoglobin [Mass/volume] in Bloodon 06-29-2024 Hemoglobin (Bld) [Mass/Vol] Hemoglobin [Mass/volume] in Blood 12.0-16.0 [facility] IgA [Mass/volume] in Serum o r Plasmaon 06-29-2024 IgA [Mass/Vol] IgA [Mass/volume] in Serum or Plasma 87-352 [facility] IgG [Mass/volume] in Serum o r Plasmaon 06-29-2024 IgG [Mass/Vol] IgG [Mass/volume] in Serum or Plasma [phone] [facility] IgM [Mass/volume] in Serum o r Plasmaon 06-29-2024 IgM [Mass/Vol] IgM [Mass/volume] in Serum or Plasma 26-217 [facility] Iron binding capacity [Mass/ volume] in Serum or Plasmaon 06-29-2024 Iron binding capacity [Mass/Vol] Iron binding capacity [Mass/volume] in Serum or Plasma 250.0-450. 0 [facility] Iron saturation [Mass Fracti on] in Serum or Plasmaon 06-29-2024 Iron saturation [Mass fraction] Iron saturation [Mass Fraction] in Serum or Plasma [facility] Laboratory - Chemistry and C hemistry - challengeon 06-29-2024 Cobalamin (Vitamin B12) [Mass/Vol] 647 pg/mL 232-1245 [facility] Comment on above: Performed at: [address] [id number] Director: Cassius Zhong PhD, Phone: [phone] Ferritin [Mass/Vol] 43.0 ng/mL 8.0-252.0 [facility] Iron [Mass/Vol] 50.0 ug/dL 50.0-170.0 [facility] LDH [Catalytic activity/Vol] 202 U/L 81-234 [facility] Laboratory - Hematology and Cell countson 06-29-2024 ESR (Bld) [Velocity] 41 mm/h High <=20 [facility] Immature granulocytes/100 WBC (Bld) 0.3 % 0.0-0.5 [facility] Leukocytes [#/volume] correc carmelita for nucleated erythrocytes in Blood by Automated counon 06-29-2024 WBC corrected for nucl RBC Auto (Bld) [#/Vol] Leukocytes [#/volume] corrected for nucleated erythrocytes in Blood by Automated coun High 4.0-11.0 [facility] Lymphocytes Auto (Bld) [#/Vo l]on 06-29-2024 Lymphocytes (Bld) [#/Vol] Lymphocytes [#/volume] in Blood by Automated count 1.2-3.8 [facility] Lymphocytes/100 WBC Auto (Bl d)on 06-29-2024 Lymphocytes/100 WBC (Bld) Lymphocytes/100 leukocytes in Blood by Automated count 20.5-60.0 [facility] MCH Auto (RBC) [Entitic mass ]on 06-29-2024 MCH (RBC) [Entitic mass] MCH [Entitic mass] by Automated count 26.7-34.0 [facility] MCHC Auto (RBC) [Mass/Vol]on 06-29-2024 MCHC (RBC) [Mass/Vol] MCHC [Mass/volume] by Automated count 29.9-35.2 [facility] MCV Auto (RBC) [Entitic vol] on 06-29-2024 MCV (RBC) [Entitic vol] MCV [Entitic vol ume] by Automated count 81.0-99.0 [facility] Monocytes Auto (Bld) [#/Vol] on 06-29-2024 Monocytes (Bld) [#/Vol] Automated blood monocyte count 0.3-0.8 [facility] Monocytes/100 WBC Auto (Bld) on 06-29-2024 Monocytes/100 WBC (Bld) Automated monocyte % 1. 7-12.0 [facility] Neutrophils Auto (Bld) [#/Vo l]on 06-29-2024 Neutrophils (Bld) [#/Vol] Neutrophils [#/volume] in Blood by Automated count High 1.4-6.5 [facility] Neutrophils/100 WBC Auto (Bl d)on 06-29-2024 Neutrophils/100 WBC (Bld) Automated neutrophil % 43.0-75.0 [facility] No Panel Informationon 06-29 C-Reactive Protein, Quantitative 0.74 mg/dL High <=0.50 [facility] Eosinophils # (Auto) 0.2 10 3/uL 0.0-0.7 [facility] Immature Granulocyte # (Auto) 0.03 10 3/uL 0.00-0.03 [facility] Protein Electrophoresis M-Manpreet Not Observed g/dL Not Observed [facility] Protein Electrophoresis Note Comment . [facility] Comment on above: Protein electrophore sis scan will follow via computer,mail, or physician office specialist delivery.Performed at: [place] [id number] Director: Cassius Zhong PhD, Phone: [phone] Platelet mean volume Auto (B ld) [Entitic vol]on 06-29-2024 Platelet mean volume (Bld) [Entitic vol] Platelet mean volume [Entitic volume] in Blood by Automated count 9.5-13.5 [facility] Platelets Auto (Bld) [#/Vol] on 06-29-2024 Platelets (Bld) [#/Vol] Platelets [#/vol ume] in Blood by Automated count 150-450 [facility] Protein [Mass/volume] in Ser um or Plasmaon 06-29-2024 Protein [Mass/Vol] Protein [Mass/volume ] in Serum or Plasma 6.0-8.5 [facility] RBC Auto (Bld) [#/Vol]on RBC (Bld) [#/Vol] Erythrocytes [#/volu me] in Blood by Automated count 4.20-5.40 [facility] Serum globulin measurement ( mass/volume)on 06-29-2024 Globulin (S) [Mass/Vol] Serum globulin measurement (mass/volume) 2.2-3.9 [facility] Serum or plasma albumin/glob ulin mass ratioon 06-29-2024 Albumin/Globulin [Mass ratio] Serum or plasma albumin/globulin mass ratio 0.7-1.7 [facility] Serum or plasma alpha 1 glob ulin measurement by electrophoresis (mass/volume)on 06-29-2024 Alpha 1 globulin Elph [Mass/Vol] Serum or plasma alpha 1 globulin measurement by electrophoresis (mass/volume) 0.0-0.4 [facility] Serum or plasma alpha 2 glob ulin measurement by electrophoresis (mass/volume)on 06-29-2024 Alpha 2 globulin Elph [Mass/Vol] Serum or plasma alpha 2 globulin measurement by electrophoresis (mass/volume) 0.4-1.0 [facility] Serum or plasma beta globuli n measurement by electrophoresis (mass/volume)on 06-29-2024 Beta globulin Elph [Mass/Vol] Serum or plasma beta globulin measurement by electrophoresis (mass/volume) 0.7-1.3 [facility] Serum or plasma gamma globul in measurement by electrophoresis (mass/volume)on 06-29-2024 Gamma globulin Elph [Mass/Vol] Serum or plasma gamma globulin measurement by electrophoresis (mass/volume) 0.4-1.8 [facility] Serum or plasma immunoelectr ophoresis interpretationon 06-29-2024 Interpretation IEP [Interp] Serum or plasma immunoelectrophoresis interpretation . [facility] Comment on above: No monoclonality det ected. Laboratory - Chemistry and C hemistry - challengeon 06-25-2024 Bilirubin Ql (U) 0 [facility] Glucose (U) [Mass/Vol] 0 mg/dL [facility]and[facility]ly [facility] Ketones Ql (U) 0 [facility] pH (U) 5.0 [pH] [facility] Specific gravity (U) [Rel density] 1.020 [facility] Urobilinogen (U) [Mass/Vol] 0.2 mg/dL [facility] Laboratory - Specimen inform ationon 06-25-2024 Appearance (U) cloudy [facility] Color (U) yellow [facility] Laboratory - Urinalysison Leukocyte esterase Test strip Ql (U) 0 [facility] Nitrite Ql (U) Negative [facility] Protein Ql (U) Trace [facility] No Panel Informationon 06-25 Urine Occult Blood 0 [facility] Urine Cultureon 06-25-2024 Bacteria identified Cx Nom (U) 30,000 colonies/ml mixed bacterial skin contaminants 2 Days PERFORMED BY: [place] [address] PATHOLOGIST BLADE FILER NESHA MAIER M.D. Normal [facility] Comment on above: Performed By: #### C UU #### [address] Urine cultureOrdered By: Keesha Marc on 06-25-2024 Bacteria identified Cx Nom (U) Urine culture [facility] Basophils Auto (Bld) [#/Vol] on 06-15-2024 Basophils (Bld) [#/Vol] 0.1 10 3/uL 0.0-0.1 [facility] Basophils (Bld) [#/Vol] Automated basoph il count 0.0-0.1 [facility] Basophils/100 WBC Auto (Bld) on 06-15-2024 Basophils/100 WBC (Bld) 0.7 % 0.2-2.0 F [facility] Basophils/100 WBC (Bld) Automated basophil % 0. 2-2.0 [facility] Chlamydia trachomatis DNA [P resence] in Specimen by SURI with probe detectionOrdered By: Casandra Hassan on 06-15-2024 C. trachomatis DNA SURI+probe Ql (Unsp spec) Negative Negative [facility] C. trachomatis DNA SURI+probe Ql (Unsp spec) Chlamydia trachomatis DNA [Presence] in Specimen by SURI with probe detection Negative [facility] Chlamydia/GC/Trich NAAon Chlamydia Trachomotis, SURI Negative Normal Negative [facility] Comment on above: Performed By: #### C UU #### [facility] Ctr [address] [place] [address] #### GCCHLAMTRI #### [facility] , Neisseria Gonorrhoeae, SURI Negative Normal Negative [facility] Comment on above: Performed By: #### C UU #### [place] [address] [place] #### GCCHLAMTRI #### [facility] , Trichomonas SURI Negative Normal Negative [facility] Comment on above: Result Comment: Perf ormed at: =G - [facility] [address] [id number] Market Editor: Monse Cardona MD, Phone: [phone] PERFORMED BY: [place] [address] PATHOLOGIST BLADE FILER NESHA MAIER M.D. Performed By: #### C UU #### [facility] Ctr [address] [place] [address] #### GCCHLAMTRI #### [facility] , Eosinophils/100 WBC Auto (Bl d)on 06-15-2024 Eosinophils/100 WBC (Bld) 1.1 % 0.9-7.0 [facility] Eosinophils/100 WBC (Bld) Automated eosinophil % 0.9-7.0 [facility] Erythrocyte distribution wid th Auto (RBC) [Ratio]on 06-15-2024 Erythrocyte distribution width (RBC) [Ratio] 16.4 % High 11.0-15.0 [facility] Erythrocyte distribution width (RBC) [Ratio] Erythrocyte distribution width [Ratio] by Automated count High 11.0-15.0 [facility] Estimated glomerular filtrat ion rate (GFR) non- Americanon 06-15-2024 GFR/1.73 sq M.predicted among non-blacks MDRD (S/P/Bld) [Vol rate/Area] mL/min/{1.73_m2} >=60 mL/min/1.7 3m 2 [facility] GFR/1.73 sq M.predicted among non-blacks MDRD (S/P/Bld) [Vol rate/Area] Estimated glomerular filtration rate (GFR) non- >=60 mL/min/1.7 3m 2 [facility] Globulin Calc (S) [Mass/Vol] on 06-15-2024 Globulin (S) [Mass/Vol] 4.1 g/dL F [facility] Globulin (S) [Mass/Vol] Serum globulin measurement by calculation (mass/volume) [facility] HCG ( test) IA.rapi d Ql (U)on 06-15-2024 HCG ( test) Ql (U) Negative NEGATIVE [facility] HCG ( test) Ql (U) Urine human chorionic gonadotropin (hCG) detection by immunoassay NEGATIVE [facility] Hematocrit Auto (Bld) [Volum e fraction]on 06-15-2024 Hematocrit (Bld) [Volume fraction] 42.5 % 36.0-48.0 [facility] Hematocrit (Bld) [Volume fraction] Hematocrit [Volume Fraction] of Blood by Automated count 36.0-48.0 [facility] Hemoglobin [Mass/volume] in Bloodon 06-15-2024 Hemoglobin (Bld) [Mass/Vol] 13.6 g/dL 12.0-16.0 [facility] Hemoglobin (Bld) [Mass/Vol] Hemoglobin [Mass/volume] in Blood 12.0-16.0 [facility] Laboratory - Chemistry and C hemistry - challengeon 06-15-2024 Bilirubin Ql (U) Negative NEGATIVE [facility] Glucose (U) [Mass/Vol] Negative NEGATIVE [facility] Ketones Ql (U) Negative NEGATIVE [facility] pH (U) 6.0 [pH] 5.0-9.0 [facility] Specific gravity (U) [Rel density] 1.025 1.005-1.02 5 [facility] Urobilinogen Qn (U) 0.2 {Tamiko'U}/dL 0.2-1.0 [facility] Albumin [Mass/Vol] 3.6 g/dL 3.4-5.0 [facility] ALP [Catalytic activity/Vol] 76 U/L 46-116 [facility] ALT [Catalytic activity/Vol] 46 U/L 14-59 [facility] AST [Catalytic activity/Vol] 29 U/L 15-37 [facility] Bilirubin [Mass/Vol] 0.4 mg/dL 0.2-1.0 [facility] Calcium [Mass/Vol] 9.5 mg/dL 8.5-10.1 [facility] Chloride [Moles/Vol] 103 mmol/L 98-107 [facility] CO2 [Moles/Vol] 26.4 mmol/L 21.0-32.0 [facility] Creatinine [Mass/Vol] 0.83 mg/dL 0.55-1.02 [facility] GFR/1.73 sq M.predicted MDRD (S/P/Bld) [Vol rate/Area] mL/min/{1.73_m2} >=60 mL/min/1.7 3m 2 [facility] Glucose [Mass/Vol] 102 mg/dL 74-106 [facility] Lactate [Moles/Vol] 1.9 mmol/L 0.4-2.0 [facility] Lipase [Catalytic activity/Vol] 32.0 U/L 16.0-77.0 [facility] Potassium [Moles/Vol] 3.9 mmol/L 3.5-5.1 [facility] Protein [Mass/Vol] 7.7 g/dL 6.4-8.2 [facility] Sodium [Moles/Vol] 139 mmol/L 136-145 [facility] Urea nitrogen [Mass/Vol] 9.0 mg/dL 7.0-18.0 [facility] Urea nitrogen/Creatinine [Mass ratio] 10.8 mg/mg [facility] Laboratory - Hematology and Cell countson 06-15-2024 Immature granulocytes/100 WBC (Bld) 0.2 % 0.0-0.5 [facility] Laboratory - Microbiology an d Antimicrobial susceptibilityOrdered By: Casandra Hassan on 06-15-2024 Bacteria identified Cx Nom (U) Escherichia coli (ESBL) Abnormal [facility] Laboratory - Specimen inform ationon 06-15-2024 Appearance (U) CLEAR CLEAR [facility] Color (U) LT. YELLOW YELLOW [facility] Laboratory - Urinalysison Leukocyte esterase Test strip Ql (U) TRACE Abnormal NEGATIVE [facility] Mucus Ql (Urine sed) TRACE Abnormal NONE SEEN [facility] Nitrite Ql (U) Positive Abnormal NEGATIVE [facility] Protein Ql (U) >=300 mg/dL Abnormal NEG/TRACE [facility] Leukocytes [#/volume] correc carmelita for nucleated erythrocytes in Blood by Automated counon 06-15-2024 WBC corrected for nucl RBC Auto (Bld) [#/Vol] 12.7 10 3/uL High 4.0-11.0 [facility] WBC corrected for nucl RBC Auto (Bld) [#/Vol] Leukocytes [#/volume] corrected for nucleated erythrocytes in Blood by Automated coun High 4.0-11.0 [facility] Lymphocytes Auto (Bld) [#/Vo l]on 06-15-2024 Lymphocytes (Bld) [#/Vol] 2.9 10 3/uL 1.2-3.8 [facility] Lymphocytes (Bld) [#/Vol] Lymphocytes [#/volume] in Blood by Automated count 1.2-3.8 [facility] Lymphocytes/100 WBC Auto (Bl d)on 06-15-2024 Lymphocytes/100 WBC (Bld) 23.0 % 20.5-60.0 [facility] Lymphocytes/100 WBC (Bld) Lymphocytes/100 leukocytes in Blood by Automated count 20.5-60.0 [facility] MCH Auto (RBC) [Entitic mass ]on 06-15-2024 MCH (RBC) [Entitic mass] 26.7 pg 26.7-34.0 [facility] MCH (RBC) [Entitic mass] MCH [Entitic mass] by Automated count 26.7-34.0 [facility] MCHC Auto (RBC) [Mass/Vol]on 06-15-2024 MCHC (RBC) [Mass/Vol] 32.0 g/dL 29.9-35.2 [facility] MCHC (RBC) [Mass/Vol] MCHC [Mass/volume] by Automated count 29.9-35.2 [facility] MCV Auto (RBC) [Entitic vol] on 06-15-2024 MCV (RBC) [Entitic vol] 83.5 fL 81.0-99.0 F [facility] MCV (RBC) [Entitic vol] MCV [Entitic vol ume] by Automated count 81.0-99.0 [facility] Monocytes Auto (Bld) [#/Vol] on 06-15-2024 Monocytes (Bld) [#/Vol] 0.6 10 3/uL 0.3-0.8 [facility] Monocytes (Bld) [#/Vol] Automated blood monocyte count 0.3-0.8 [facility] Monocytes/100 WBC Auto (Bld) on 06-15-2024 Monocytes/100 WBC (Bld) 4.9 % 1.7-12.0 F [facility] Monocytes/100 WBC (Bld) Automated monocyte % 1. 7-12.0 [facility] Neisseria gonorrhoeae DNA [P resence] in Specimen by SURI with probe detectionOrdered By: Casadnra Hassan on 06-15-2024 N. gonorrhoeae DNA SURI+probe Ql (Unsp spec) Negative Negative [facility] N. gonorrhoeae DNA SURI+probe Ql (Unsp spec) Neisseria gonorrhoeae DNA [Presence] in Specimen by SURI with probe detection Negative [facility] Neutrophils Auto (Bld) [#/Vo l]on 06-15-2024 Neutrophils (Bld) [#/Vol] 8.9 10 3/uL High 1.4-6.5 [facility] Neutrophils (Bld) [#/Vol] Neutrophils [#/volume] in Blood by Automated count High 1.4-6.5 [facility] Neutrophils/100 WBC Auto (Bl d)on 06-15-2024 Neutrophils/100 WBC (Bld) 70.1 % 43.0-75.0 [facility] Neutrophils/100 WBC (Bld) Automated neutrophil % 43.0-75.0 [facility] No Panel Informationon 06-15 Miscellaneous Test Comment See comment [facility] Comment on above: Specimen Source: UCC - Urine,Clean Catch - Urine CC - 200.100 Urine Bacteria SMALL #/HPF Abnormal NONE SEEN [facility] Urine Culture Reflexed YES [facility] Urine Culture Result 1 \R\ Urine Culture , Routine\R\ Organism: Gram negative jus : [facility] Urine Microscopic Review YES [facility] Urine Occult Blood MODERATE Abnormal NEGATIVE [facility] Urine Other Casts NONE SEEN #/LPF NONE SEEN [facility] Urine Other Crystals None Seen #/HPF None Seen [facility] Urine RBC 10-20 #/HPF Abnormal 0-2 [facility] Urine Squamous Epithelial Cells FEW #/LPF Abnormal NONE/RARE [facility] Urine WBC 20-50 #/HPF Abnormal NONE SEEN [facility] Eosinophils # (Auto) 0.1 10 3/uL 0.0-0.7 [facility] Immature Granulocyte # (Auto) 0.03 10 3/uL 0.00-0.03 [facility] Platelet mean volume Auto (B ld) [Entitic vol]on 06-15-2024 Platelet mean volume (Bld) [Entitic vol] 10.0 fL 9.5-13.5 [facility] Platelet mean volume (Bld) [Entitic vol] Platelet mean volume [Entitic volume] in Blood by Automated count 9.5-13.5 [facility] Platelets Auto (Bld) [#/Vol] on 06-15-2024 Platelets (Bld) [#/Vol] 308 10 3/uL 150-450 [facility] Platelets (Bld) [#/Vol] Platelets [#/vol ume] in Blood by Automated count 150-450 [facility] RBC Auto (Bld) [#/Vol]on RBC (Bld) [#/Vol] 5.09 10 6/uL 4.20-5.40 [facility] RBC (Bld) [#/Vol] Erythrocytes [#/volu me] in Blood by Automated count 4.20-5.40 [facility] Serum or plasma albumin/glob ulin mass ratioon 06-15-2024 Albumin/Globulin [Mass ratio] 0.9 {ratio} [facility] Albumin/Globulin [Mass ratio] Serum or plasma albumin/globulin mass ratio [facility] Serum or plasma anion gap de terminationon 06-15-2024 Anion gap [Moles/Vol] 13.5 mmol/L [facility] Anion gap [Moles/Vol] Serum or plasma an ion gap determination [facility] Trichomonas vaginalis DNA [P resence] in Specimen by SURI with probe detectionOrdered By: Casandra Hassan on 06-15-2024 T. vaginalis DNA SURI+probe Ql (Unsp spec) Negative Negative [facility] Comment on above: Performed at: =G - [facility] [id number] Director: Monse Cardona MD, Phone: [phone] T. vaginalis DNA SURI+probe Ql (Unsp spec) Trichomonas vaginalis DNA [Presence] in Specimen by SURI with probe detection Negative [facility] Comment on above: Performed at: =G - [facility] [id number] Director: Monse Cardona MD, Phone: [phone] Urine Cultureon 06-15-2024 Bacteria identified Cx Nom (U) ORGANISM: Escherichia coli (ESBL) (O:ESCCOLESBL) [place] Count >100,000 Aerobic RENATE Charge ([id number]) -- [...] RESISTANT TO ALL B-LACTAM DRUGS. PERFORMED BY: [facility] [address] [place] [address] PATHOLOGIST BLADE FILER NESHA MAIER M.D. Normal [facility] Comment on above: Performed By: #### C UU #### [facility] [address] [place] [address] [place] #### GCCHLAMTRI #### [facility] , Urine cultureOrdered By: Eulalio Hassan on 06-15-2024 Bacteria identified Cx Nom (U) Abnormal [facility] Iron binding capacity [Mass/ volume] in Serum or Plasmaon 06-07-2024 Iron binding capacity [Mass/Vol] 411.0 ug/dL 250.0-450. 0 [facility] Iron binding capacity [Mass/Vol] Iron binding capacity [Mass/volume] in Serum or Plasma 250.0-450. 0 [facility] Iron saturation [Mass Fracti on] in Serum or Plasmaon 06-07-2024 Iron saturation [Mass fraction] 13.4 % [facility] Iron saturation [Mass fraction] Iron saturation [Mass Fraction] in Serum or Plasma [facility] Laboratory - Chemistry and C hemistry - challengeon 06-07-2024 Iron [Mass/Vol] 55.0 ug/dL 50.0-170.0 [facility] Iron binding capacity [Mass/ volume] in Serum or Plasmaon 04-21-2024 Iron binding capacity [Mass/Vol] 495.0 ug/dL High 250.0-450. 0 [facility] Iron binding capacity [Mass/Vol] Iron binding capacity [Mass/volume] in Serum or Plasma High 250.0-450. 0 [facility] Iron saturation [Mass Fracti on] in Serum or Plasmaon 04-21-2024 Iron saturation [Mass fraction] 15.4 % [facility] Iron saturation [Mass fraction] Iron saturation [Mass Fraction] in Serum or Plasma [facility] Laboratory - Chemistry and C hemistry - challengeon 04-21-2024 Cobalamin (Vitamin B12) [Mass/Vol] 815 pg/mL [id number] [facility] Comment on above: Performed at: [place] [id number] Director: Cassius Zhong PhD, Phone: [phone] Iron [Mass/Vol] 76.0 ug/dL 50.0-170.0 [facility] TSH Qn 2.211 m[IU]/L 0.358-3.74 0 [facility] Basophils Auto (Bld) [#/Vol] on 04-12-2024 Basophils (Bld) [#/Vol] 0.1 10 3/uL 0.0-0.1 [facility] Basophils (Bld) [#/Vol] Automated basoph il count 0.0-0.1 [facility] Basophils/100 WBC Auto (Bld) on 04-12-2024 Basophils/100 WBC (Bld) 0.6 % 0.2-2.0 F [facility] Basophils/100 WBC (Bld) Automated basophil % 0. 2-2.0 [facility] Buprenorphine [Presence] in Urineon 04-12-2024 Buprenorphine Ql (U) Negative NEGATIVE [facility] Comment on above: DRUG CLASS TEST SYST EM CUT-OFF CONCENTRATIONS ARE ASFOLLOWS:AMP (Amphetamine): 500 ng/mLBAR (Barbiturates): 200 ng/mLBZO (Benzodiazepines): 150 ng/mLBUP (Buprenorphine): 10 ng/mLCOC (Cocaine): 150 ng/mLmAMP (Methamphetamine): 500 ng/mLMTD (Methadone): 200 ng/mLOPI (Opiates): 100 ng/mLOXY (Oxycodone): 100 ng/mLPCP (Phencyclidine): 25 ng/mLTHC (Cannabinoids): 50 ng/mLTCA (Trycyclic Antidepressants): 300 ng/mL Buprenorphine Ql (U) Buprenorphine [Presence] in Urine NEGATIVE [facility] Comment on above: DRUG CLASS TEST SYST EM CUT-OFF CONCENTRATIONS ARE ASFOLLOWS:AMP (Amphetamine): 500 ng/mLBAR (Barbiturates): 200 ng/mLBZO (Benzodiazepines): 150 ng/mLBUP (Buprenorphine): 10 ng/mLCOC (Cocaine): 150 ng/mLmAMP (Methamphetamine): 500 ng/mLMTD (Methadone): 200 ng/mLOPI (Opiates): 100 ng/mLOXY (Oxycodone): 100 ng/mLPCP (Phencyclidine): 25 ng/mLTHC (Cannabinoids): 50 ng/mLTCA (Trycyclic Antidepressants): 300 ng/mL Eosinophils/100 WBC Auto (Bl d)on 04-12-2024 Eosinophils/100 WBC (Bld) 1.0 % 0.9-7.0 [facility] Eosinophils/100 WBC (Bld) Automated eosinophil % 0.9-7.0 [facility] Erythrocyte distribution wid th Auto (RBC) [Ratio]on 04-12-2024 Erythrocyte distribution width (RBC) [Ratio] 17.4 % High 11.0-15.0 [facility] Erythrocyte distribution width (RBC) [Ratio] Erythrocyte distribution width [Ratio] by Automated count High 11.0-15.0 [facility] Estimated glomerular filtrat ion rate (GFR) non- Americanon 04-12-2024 GFR/1.73 sq M.predicted among non-blacks MDRD (S/P/Bld) [Vol rate/Area] mL/min/{1.73_m2} >=60 [facility] GFR/1.73 sq M.predicted among non-blacks MDRD (S/P/Bld) [Vol rate/Area] Estimated glomerular filtration rate (GFR) non- >=60 [facility] Globulin Calc (S) [Mass/Vol] on 04-12-2024 Globulin (S) [Mass/Vol] 4.1 g/dL F [facility] Globulin (S) [Mass/Vol] Serum globulin measurement by calculation (mass/volume) [facility] HCG ( test) Marco Ai d Ql (U)on 04-12-2024 HCG ( test) Ql (U) Negative NEGATIVE [facility] HCG ( test) Ql (U) Urine human chorionic gonadotropin (hCG) detection by immunoassay NEGATIVE [facility] Hematocrit Auto (Bld) [Volum e fraction]on 04-12-2024 Hematocrit (Bld) [Volume fraction] 37.9 % 36.0-48.0 [facility] Hematocrit (Bld) [Volume fraction] Hematocrit [Volume Fraction] of Blood by Automated count 36.0-48.0 [facility] Hemoglobin [Mass/volume] in Bloodon 04-12-2024 Hemoglobin (Bld) [Mass/Vol] 11.6 g/dL Low 12.0-16.0 [facility] Hemoglobin (Bld) [Mass/Vol] Hemoglobin [Mass/volume] in Blood Low 12.0-16.0 [facility] Laboratory - Chemistry and C hemistry - challengeon 04-12-2024 Albumin [Mass/Vol] 3.3 g/dL Low 3.4-5.0 [facility] ALP [Catalytic activity/Vol] 75 U/L 46-116 [facility] ALT [Catalytic activity/Vol] 36 U/L 14-59 [facility] AST [Catalytic activity/Vol] 19 U/L 15-37 [facility] Bilirubin [Mass/Vol] 0.3 mg/dL 0.2-1.0 [facility] Calcium [Mass/Vol] 8.6 mg/dL 8.5-10.1 [facility] Chloride [Moles/Vol] 101 mmol/L 98-107 [facility] CO2 [Moles/Vol] 28.7 mmol/L 21.0-32.0 [facility] Creatinine [Mass/Vol] 0.70 mg/dL 0.55-1.02 [facility] GFR/1.73 sq M.predicted MDRD (S/P/Bld) [Vol rate/Area] mL/min/{1.73_m2} >=60 [facility] Glucose [Mass/Vol] 103 mg/dL 74-106 [facility] Potassium [Moles/Vol] 3.7 mmol/L 3.5-5.1 [facility] Protein [Mass/Vol] 7.4 g/dL 6.4-8.2 [facility] Sodium [Moles/Vol] 136 mmol/L 136-145 [facility] Urea nitrogen [Mass/Vol] 10.0 mg/dL 7.0-18.0 [facility] Urea nitrogen/Creatinine [Mass ratio] 14.3 mg/mg [facility] Bilirubin Ql (U) Negative NEGATIVE [facility] Glucose (U) [Mass/Vol] Negative NEGATIVE [facility] Ketones Ql (U) Negative NEGATIVE [facility] pH (U) 6.0 [pH] 5.0-9.0 [facility] Specific gravity (U) [Rel density] >=1.030 Abnormal 1.005-1.02 5 [facility] Urobilinogen Qn (U) 0.2 {Tamiko'U}/dL 0.2-1.0 [facility] Laboratory - Drug toxicology on 04-12-2024 Amphetamines Ql (U) Negative NEGATIVE [facility] Benzodiazepines Ql (U) Negative NEGATIVE [facility] Cocaine Ql (U) Negative NEGATIVE [facility] Opiates Ql (U) Negative NEGATIVE [facility] Phencyclidine Ql (U) Negative NEGATIVE [facility] Laboratory - Hematology and Cell countson 04-12-2024 Immature granulocytes/100 WBC (Bld) 0.3 % 0.0-0.5 [facility] Laboratory - Specimen inform ationon 04-12-2024 Appearance (U) CLEAR CLEAR [facility] Color (U) YELLOW YELLOW [facility] Laboratory - Urinalysison Leukocyte esterase Test strip Ql (U) Negative NEGATIVE [facility] Mucus Ql (Urine sed) TRACE Abnormal NONE SEEN [facility] Nitrite Ql (U) Negative NEGATIVE [facility] Protein Ql (U) Negative NEG/TRACE [facility] Leukocytes [#/volume] correc carmelita for nucleated erythrocytes in Blood by Automated counon 04-12-2024 WBC corrected for nucl RBC Auto (Bld) [#/Vol] 9.9 10 3/uL 4.0-11.0 [facility] WBC corrected for nucl RBC Auto (Bld) [#/Vol] Leukocytes [#/volume] corrected for nucleated erythrocytes in Blood by Automated coun 4.0-11.0 [facility] Lymphocytes Auto (Bld) [#/Vo l]on 04-12-2024 Lymphocytes (Bld) [#/Vol] 3.5 10 3/uL 1.2-3.8 [facility] Lymphocytes (Bld) [#/Vol] Lymphocytes [#/volume] in Blood by Automated count 1.2-3.8 [facility] Lymphocytes/100 WBC Auto (Bl d)on 04-12-2024 Lymphocytes/100 WBC (Bld) 35.5 % 20.5-60.0 [facility] Lymphocytes/100 WBC (Bld) Lymphocytes/100 leukocytes in Blood by Automated count 20.5-60.0 [facility] MCH Auto (RBC) [Entitic mass ]on 04-12-2024 MCH (RBC) [Entitic mass] 24.5 pg Low 26.7-34.0 [facility] MCH (RBC) [Entitic mass] MCH [Entitic mass] by Automated count Low 26.7-34.0 [facility] MCHC Auto (RBC) [Mass/Vol]on 04-12-2024 MCHC (RBC) [Mass/Vol] 30.6 g/dL 29.9-35.2 [facility] MCHC (RBC) [Mass/Vol] MCHC [Mass/volume] by Automated count 29.9-35.2 [facility] MCV Auto (RBC) [Entitic vol] on 04-12-2024 MCV (RBC) [Entitic vol] 80.1 fL Low 81.0-99.0 F [facility] MCV (RBC) [Entitic vol] MCV [Entitic vol ume] by Automated count Low 81.0-99.0 [facility] Methadone [Presence] in Urin e by Screen methodon 04-12-2024 Methadone Screen Ql (U) Negative NEGATIVE F [facility] Methadone Screen Ql (U) Methadone [Prese nce] in Urine by Screen method NEGATIVE [facility] Monocytes Auto (Bld) [#/Vol] on 04-12-2024 Monocytes (Bld) [#/Vol] 0.5 10 3/uL 0.3-0.8 [facility] Monocytes (Bld) [#/Vol] Automated blood monocyte count 0.3-0.8 [facility] Monocytes/100 WBC Auto (Bld) on 04-12-2024 Monocytes/100 WBC (Bld) 4.7 % 1.7-12.0 [facility] Monocytes/100 WBC (Bld) Automated monocyte % 1. 7-12.0 [facility] Neutrophils Auto (Bld) [#/Vo l]on 04-12-2024 Neutrophils (Bld) [#/Vol] 5.7 10 3/uL 1.4-6.5 [facility] Neutrophils (Bld) [#/Vol] Neutrophils [#/volume] in Blood by Automated count 1.4-6.5 [facility] Neutrophils/100 WBC Auto (Bl d)on 04-12-2024 Neutrophils/100 WBC (Bld) 57.9 % 43.0-75.0 [facility] Neutrophils/100 WBC (Bld) Automated neutrophil % 43.0-75.0 [facility] No Panel Informationon 04-12 Acetaminophen Level <2.0 ug/mL Low 10.0-30.0 [facility] Eosinophils # (Auto) 0.1 10 3/uL 0.0-0.7 Fir [facility] Ethyl Alcohol Level <3 mg/dL [facility] Comment on above: NOTE: 80 mg/dl is th e legal limit for a blood alcohol level Immature Granulocyte # (Auto) 0.03 10 3/uL 0.00-0.03 [facility] Salicylates Level <2.8 mg/dL <=19.9 [facility] Urine Bacteria SMALL #/HPF Abnormal NONE SEEN [facility] Urine Barbiturates Screen Negative NEGATIVE [facility] Urine Culture Reflexed YES Fi [facility] Urine Marijuana (THC) Screen Negative NEGATIVE [facility] Urine Methamphetamines Screen Negative NEGATIVE [facility] Urine Occult Blood Negative NEGATIVE [facility] Urine Other Casts NONE SEEN #/LPF NONE SEEN [facility] Urine Other Crystals None Seen #/HPF None Seen [facility] Urine RBC 0-2 #/HPF 0-2 [facility] Urine Squamous Epithelial Cells FEW #/LPF Abnormal NONE/RARE [facility] Urine Transitional Epithelial Cells RARE #/LPF Abnormal NONE SEEN [facility] Urine WBC 2-5 #/HPF Abnormal NONE SEEN [facility] Platelet mean volume Auto (B ld) [Entitic vol]on 04-12-2024 Platelet mean volume (Bld) [Entitic vol] 10.2 fL 9.5-13.5 [facility] Platelet mean volume (Bld) [Entitic vol] Platelet mean volume [Entitic volume] in Blood by Automated count 9.5-13.5 [facility] Platelets Auto (Bld) [#/Vol] on 04-12-2024 Platelets (Bld) [#/Vol] 299 10 3/uL 150-450 [facility] Platelets (Bld) [#/Vol] Platelets [#/vol ume] in Blood by Automated count 150-450 [facility] RBC Auto (Bld) [#/Vol]on RBC (Bld) [#/Vol] 4.73 10 6/uL 4.20-5.40 [facility] RBC (Bld) [#/Vol] Erythrocytes [#/volu me] in Blood by Automated count 4.20-5.40 [facility] Serum or plasma albumin/glob ulin mass ratioon 04-12-2024 Albumin/Globulin [Mass ratio] 0.8 {ratio} [facility] Albumin/Globulin [Mass ratio] Serum or plasma albumin/globulin mass ratio [facility] Serum or plasma anion gap de terminationon 04-12-2024 Anion gap [Moles/Vol] 10.0 mmol/L [facility] Anion gap [Moles/Vol] Serum or plasma an ion gap determination [facility] Urine tricyclic antidepressa nt measurementon 04-12-2024 Tricyclic antidepressants (U) [Mass/Vol] Negative NEGATIVE [facility] Tricyclic antidepressants (U) [Mass/Vol] Urine tricyclic antidepressant measurement NEGATIVE [facility] oxyCODONE+oxyMORphone [Prese nce] in Urine by Screen methodon 04-12-2024 oxyCODONE+oxyMORphone Screen Ql (U) Negative NEGATIVE [facility] oxyCODONE+oxyMORphone Screen Ql (U) oxyCODONE+oxyMORphone [Presence] in Urine by Screen method NEGATIVE [facility] Basophils Auto (Bld) [#/Vol] on 11-03-2023 Basophils (Bld) [#/Vol] 0.0 10 3/uL 0.0-0.1 [facility] Basophils/100 WBC Auto (Bld) on 11-03-2023 Basophils/100 WBC (Bld) 0.5 % 0.2-2.0 F [facility] Eosinophils/100 WBC Auto (Bl d)on 11-03-2023 Eosinophils/100 WBC (Bld) 1.4 % 0.9-7.0 [facility] Erythrocyte distribution wid th Auto (RBC) [Ratio]on 11-03-2023 Erythrocyte distribution width (RBC) [Ratio] 16.3 % 11.0-15.0 [facility] Estimated glomerular filtrat ion rate (GFR) non- Americanon 11-03-2023 GFR/1.73 sq M.predicted among non-blacks MDRD (S/P/Bld) [Vol rate/Area] mL/min/{1.73_m2} >=60 [facility] Globulin Calc (S) [Mass/Vol] on 11-03-2023 Globulin (S) [Mass/Vol] 4.0 g/dL F [facility] Hematocrit Auto (Bld) [Volum e fraction]on 11-03-2023 Hematocrit (Bld) [Volume fraction] 26.1 % 36.0-48.0 [facility] Hemoglobin [Mass/volume] in Bloodon 11-03-2023 Hemoglobin (Bld) [Mass/Vol] 7.8 g/dL 12.0-16.0 [facility] Human papilloma virus 16+18+ 31+33+35+39+45+51+52+56+58+59+66+68 DNA [Presence] in [place] 11-03-2023 HPV 16+18+31+33+35+39+45+51 +52+56+58+59+66+68 DNA Probe+sig amp Ql (Cvx) Negative Negative [facility] Comment on above: This nucleic acid am plification test detects fourteen high-risk HPV types (16,18,31,33,35,39,45,51,52,56,58,59,66,68)without differentiation.Performed at: =G - [facility] [address] [id number] Director: Monse Cardona MD, Phone: [phone] at: - [facility] [address] [id number] Director: Monse Cardona MD, Phone: [phone] Iron binding capacity [Mass/ volume] in Serum or Plasmaon 11-03-2023 Iron binding capacity [Mass/Vol] 512.0 ug/dL 250.0-450. 0 [facility] Iron saturation [Mass Fracti on] in Serum or Plasmaon 11-03-2023 Iron saturation [Mass fraction] 2.7 % [facility] Laboratory - Chemistry and C hemistry - challengeon 11-03-2023 Albumin [Mass/Vol] 3.1 g/dL 3.4-5.0 [facility] ALP [Catalytic activity/Vol] 63 U/L 46-116 [facility] ALT [Catalytic activity/Vol] 29 U/L 14-59 [facility] AST [Catalytic activity/Vol] 18 U/L 15-37 [facility] Bilirubin [Mass/Vol] 0.2 mg/dL 0.2-1.0 [facility] Calcium [Mass/Vol] 8.7 mg/dL 8.5-10.1 [facility] Chloride [Moles/Vol] 102 mmol/L 98-107 [facility] CO2 [Moles/Vol] 27.6 mmol/L 21.0-32.0 [facility] Creatinine [Mass/Vol] 0.70 mg/dL 0.55-1.02 [facility] Ferritin [Mass/Vol] 6.0 ng/mL 8.0-252.0 [facility] GFR/1.73 sq M.predicted MDRD (S/P/Bld) [Vol rate/Area] mL/min/{1.73_m2} >=60 [facility] Glucose [Mass/Vol] 103 mg/dL 74-106 [facility] Iron [Mass/Vol] 14.0 ug/dL 50.0-170.0 [facility] Potassium [Moles/Vol] 3.8 mmol/L 3.5-5.1 [facility] Protein [Mass/Vol] 7.1 g/dL 6.4-8.2 [facility] Sodium [Moles/Vol] 139 mmol/L 136-145 [facility] Urea nitrogen [Mass/Vol] 11.0 mg/dL 7.0-18.0 [facility] Urea nitrogen/Creatinine [Mass ratio] 15.7 mg/mg [facility] Laboratory - Hematology and Cell countson 11-03-2023 Immature granulocytes/100 WBC (Bld) 0.4 % 0.0-0.5 [facility] Leukocytes [#/volume] correc carmelita for nucleated erythrocytes in Blood by Automated counon 11-03-2023 WBC corrected for nucl RBC Auto (Bld) [#/Vol] 7.4 10 3/uL 4.0-11.0 [facility] Lymphocytes Auto (Bld) [#/Vo l]on 11-03-2023 Lymphocytes (Bld) [#/Vol] 2.5 10 3/uL 1.2-3.8 [facility] Lymphocytes/100 WBC Auto (Bl d)on 11-03-2023 Lymphocytes/100 WBC (Bld) 33.6 % 20.5-60.0 [facility] MCH Auto (RBC) [Entitic mass ]on 11-03-2023 MCH (RBC) [Entitic mass] 24.8 pg 26.7-34.0 [facility] MCHC Auto (RBC) [Mass/Vol]on 11-03-2023 MCHC (RBC) [Mass/Vol] 29.9 g/dL 29.9-35.2 [facility] MCV Auto (RBC) [Entitic vol] on 11-03-2023 MCV (RBC) [Entitic vol] 82.9 fL 81.0-99.0 F [facility] Monocytes Auto (Bld) [#/Vol] on 11-03-2023 Monocytes (Bld) [#/Vol] 0.4 10 3/uL 0.3-0.8 [facility] Monocytes/100 WBC Auto (Bld) on 11-03-2023 Monocytes/100 WBC (Bld) 5.6 % 1.7-12.0 F [facility] Neutrophils Auto (Bld) [#/Vo l]on 11-03-2023 Neutrophils (Bld) [#/Vol] 4.3 10 3/uL 1.4-6.5 [facility] Neutrophils/100 WBC Auto (Bl d)on 11-03-2023 Neutrophils/100 WBC (Bld) 58.5 % 43.0-75.0 [facility] No Panel Informationon 11-02 Eosinophils # (Auto) 0.1 10 3/uL 0.0-0.7 [facility] Immature Granulocyte # (Auto) 0.03 10 3/uL 0.00-0.03 [facility] HPV High Risk Other Comment Note . [facility] Comment on above: TESTS RESULT FLAG UN ITS REF RANGE LAB -DIAGNOSIS: 02 NEGATIVE FOR INTRAEPITHELIAL LESION OR MALIGNANCY.Specimen adequacy: 02 Satisfactory for evaluation. Endocervical and/or squamous metaplastic cells (endocervical component) are present.Performed by: 02 Beverly Escalante Radiation Control Worker (ASCP). 02Note: Note 02 The Pap smear [...] Low,>-Panic High,A-Abnormal,AA-Critical Abnormal ------Performed at:02 WB [facility] [address] [id number] Monse Cardona MD, Reference Lab Test Patient Age Note . [facility] Comment on above: TESTS RESULT FLAG UN ITS REF RANGE LAB - Clinician Provided Cytology Information Source.............Cervix;Endocervix No. of containers..01 ThinPrep VialAge Jean-Pierre YOON Elies... 30-65 FLAG LEGEND: L-Low Normal,H-High Normal,LL-Alert Low,HH-Alert High <-Panic Low,>-Panic High,A-Abnormal,AA-Critical Abnormal ------Performed at:01 =[facility] [place] [address] Monse Cardona MD, Platelet mean volume Auto (B ld) [Entitic vol]on 11-03-2023 Platelet mean volume (Bld) [Entitic vol] 9.6 fL 9.5-13.5 [facility] Platelets Auto (Bld) [#/Vol] on 11-03-2023 Platelets (Bld) [#/Vol] 323 10 3/uL 150-450 [facility] RBC Auto (Bld) [#/Vol]on RBC (Bld) [#/Vol] 3.15 10 6/uL 4.20-5.40 [facility] Serum or plasma albumin/glob ulin mass ratioon 11-03-2023 Albumin/Globulin [Mass ratio] 0.8 {ratio} [facility] Serum or plasma anion gap de terminationon 11-03-2023 Anion gap [Moles/Vol] 13.2 mmol/L Fi [facility] Basophils Auto (Bld) [#/Vol] on 10-30-2023 Basophils (Bld) [#/Vol] 0.0 10 3/uL 0.0-0.1 [facility] Basophils/100 WBC Auto (Bld) on 10-30-2023 Basophils/100 WBC (Bld) 0.6 % 0.2-2.0 [facility] Eosinophils/100 WBC Auto (Bl d)on 10-30-2023 Eosinophils/100 WBC (Bld) 1.2 % 0.9-7.0 [facility] Erythrocyte distribution wid th Auto (RBC) [Ratio]on 10-30-2023 Erythrocyte distribution width (RBC) [Ratio] 16.6 % 11.0-15.0 [facility] Estimated glomerular filtrat ion rate (GFR) non- Americanon 10-30-2023 GFR/1.73 sq M.predicted among non-blacks MDRD (S/P/Bld) [Vol rate/Area] mL/min/{1.73_m2} >=60 [facility] HCG ( test) Bello d Ql (U)on 10-30-2023 HCG ( test) Ql (U) Negative NEGATIVE [facility] Hematocrit Auto (Bld) [Volum e fraction]on 10-30-2023 Hematocrit (Bld) [Volume fraction] 26.6 % 36.0-48.0 [facility] Hemoglobin [Mass/volume] in Bloodon 10-30-2023 Hemoglobin (Bld) [Mass/Vol] 7.9 g/dL 12.0-16.0 [facility] Laboratory - Chemistry and C hemistry - challengeon 10-30-2023 Calcium [Mass/Vol] 8.5 mg/dL 8.5-10.1 [facility] Chloride [Moles/Vol] 101 mmol/L 98-107 [facility] CO2 [Moles/Vol] 28.8 mmol/L 21.0-32.0 [facility] Creatinine [Mass/Vol] 0.62 mg/dL 0.55-1.02 [facility] GFR/1.73 sq M.predicted MDRD (S/P/Bld) [Vol rate/Area] mL/min/{1.73_m2} >=60 [facility] Glucose [Mass/Vol] 104 mg/dL 74-106 [facility] Potassium [Moles/Vol] 4.0 mmol/L 3.5-5.1 [facility] Sodium [Moles/Vol] 137 mmol/L 136-145 [facility] Urea nitrogen [Mass/Vol] 8.0 mg/dL 7.0-18.0 [facility] Urea nitrogen/Creatinine [Mass ratio] 12.9 mg/mg [facility] Laboratory - Hematology and Cell countson 10-30-2023 Immature granulocytes/100 WBC (Bld) 0.4 % 0.0-0.5 [facility] Leukocytes [#/volume] correc carmelita for nucleated erythrocytes in Blood by Automated counon 10-30-2023 WBC corrected for nucl RBC Auto (Bld) [#/Vol] 7.3 10 3/uL 4.0-11.0 [facility] Lymphocytes Auto (Bld) [#/Vo l]on 10-30-2023 Lymphocytes (Bld) [#/Vol] 2.2 10 3/uL 1.2-3.8 [facility] Lymphocytes/100 WBC Auto (Bl d)on 10-30-2023 Lymphocytes/100 WBC (Bld) 30.2 % 20.5-60.0 [facility] MCH Auto (RBC) [Entitic mass ]on 10-30-2023 MCH (RBC) [Entitic mass] 25.0 pg 26.7-34.0 [facility] MCHC Auto (RBC) [Mass/Vol]on 10-30-2023 MCHC (RBC) [Mass/Vol] 29.7 g/dL 29.9-35.2 [facility] MCV Auto (RBC) [Entitic vol] on 10-30-2023 MCV (RBC) [Entitic vol] 84.2 fL 81.0-99.0 F [facility] Monocytes Auto (Bld) [#/Vol] on 10-30-2023 Monocytes (Bld) [#/Vol] 0.3 10 3/uL 0.3-0.8 [facility] Monocytes/100 WBC Auto (Bld) on 10-30-2023 Monocytes/100 WBC (Bld) 3.7 % 1.7-12.0 F [facility] Neutrophils Auto (Bld) [#/Vo l]on 10-30-2023 Neutrophils (Bld) [#/Vol] 4.6 10 3/uL 1.4-6.5 [facility] Neutrophils/100 WBC Auto (Bl d)on 10-30-2023 Neutrophils/100 WBC (Bld) 63.9 % 43.0-75.0 [facility] No Panel Informationon 10-29 Eosinophils # (Auto) 0.1 10 3/uL 0.0-0.7 [facility] Immature Granulocyte # (Auto) 0.03 10 3/uL 0.00-0.03 [facility] Platelet mean volume Auto (B ld) [Entitic vol]on 10-30-2023 Platelet mean volume (Bld) [Entitic vol] 9.4 fL 9.5-13.5 [facility] Platelets Auto (Bld) [#/Vol] on 10-30-2023 Platelets (Bld) [#/Vol] 264 10 3/uL 150-450 [facility] RBC Auto (Bld) [#/Vol]on RBC (Bld) [#/Vol] 3.16 10 6/uL 4.20-5.40 [facility] Serum or plasma anion gap de terminationon 10-30-2023 Anion gap [Moles/Vol] 11.2 mmol/L Fi [facility] HCG ( test) IA.rapi d Ql (U)on 10-06-2023 HCG ( test) Ql (U) Negative NEGATIVE [facility] COVID + FLU Quick Testingon 07-07-2023 SARS-CoV-2 (COVID-19) RNA SURI+probe Ql (Unsp spec) Negative [facility] Other COVID + FLU Quick Testing Negative [employer] Other Alanine aminotransferase [En zymatic activity/volume] in Serum or PlasmaOrdered By: Celio Mullins on 07-03-2023 ALT [Catalytic activity/Vol] 22 U/L 7-52 [facility] Albumin [Mass/volume] in Ser um or Plasma by Bromocresol green (BCG) dye binding methoOrdered By: Celio Mullins on 07-03-2023 Albumin BCG dye [Mass/Vol] 4.4 g/dL 3.5-5.7 [facility] Alkaline phosphatase [Enzyma tic activity/volume] in Serum or PlasmaOrdered By: Celio Mullins on 07-03-2023 ALP [Catalytic activity/Vol] 68 U/L 34-104 [facility] Aspartate aminotransferase [ Enzymatic activity/volume] in Serum or PlasmaOrdered By: Celio Mullins on 07-03-2023 AST [Catalytic activity/Vol] 18 U/L 13-39 [facility] Bilirubin.total [Mass/volume ] in Serum or PlasmaOrdered By: Celio Mullins on 07-03-2023 Bilirubin [Mass/Vol] 0.4 mg/dL 0.3-1.0 [facility] Calcium [Mass/volume] in Ser um or PlasmaOrdered By: Celio Mullins on 07-03-2023 Calcium [Mass/Vol] 9.4 mg/dL 8.6-10.3 [facility] Carbon dioxide, total [Moles /volume] in Serum or PlasmaOrdered By: Celio Mullins on 07-03-2023 CO2 [Moles/Vol] 30.1 mmol/L 21.0-31.0 [facility] Chloride [Moles/volume] in S marta or PlasmaOrdered By: Celio Mullins on 07-03-2023 Chloride [Moles/Vol] 105 mmol/L 98-107 [facility] Cholesterol [Mass/volume] in Serum or PlasmaOrdered By: Celio Mullins on 07-03-2023 Cholesterol [Mass/Vol] 126 mg/dL 140-200 [facility] Comment on above: Chol less than 200 m g/dl low riskChol 201-239 mg/dl borderline riskChol 240 mg/dl and greater high risk Cholesterol in LDL Calc [Mas s/Vol]Ordered By: Celio Mullins on 07-03-2023 Cholesterol in LDL [Mass/Vol] 69 mg/dL 0-100 [facility] Comment on above: LDL ATP III CLASSIFI CATIONLDL less than 100 mg/dL OptimalLDL 100-129 mg/dL Near or above optimalLDL 130-159 mg/dL Borderline highLDL 160-189 mg/dL HighLDL greater than 189 mg/dL Very high Cholesterol in VLDL Calc [Ma ss/Vol]Ordered By: Celio Mullins on 07-03-2023 Cholesterol in VLDL [Mass/Vol] 18 mg/dL [facility] Creatinine [Mass/volume] in Serum or PlasmaOrdered By: Celio Mullins on 07-03-2023 Creatinine [Mass/Vol] 0.63 mg/dL 0.60-1.20 [facility] Globulin Calc (S) [Mass/Vol] Ordered By: Celio Mullins on 07-03-2023 Globulin (S) [Mass/Vol] 3.1 g/dL [facility] Glucose [Mass/volume] in Ser um or PlasmaOrdered By: Celio Mullins on 07-03-2023 Glucose [Mass/Vol] 97 mg/dL 70-100 [facility] Comment on above: ADA recommended refe rence rangeRandom Glucose Reference Range is dependent on time and content of last meal. Glucose of more than 200 mg/dL in a nonstressed, ambulatory subject supports the diagnosis of Diabetes Mellitus. No Panel InformationOrdered By: Celio Mullins on 07-03-2023 Estimated GFR (CKD-EPI) > 60.0 mL/Min [facility] Pharmacy Creatinine Clearance (Chem N/A [facility] Potassium [Moles/volume] in Serum or PlasmaOrdered By: Celio Mullins on 07-03-2023 Potassium [Moles/Vol] 4.3 mmol/L 3.5-5.1 [facility] Protein [Mass/volume] in Ser um or PlasmaOrdered By: Celio Mullins on 07-03-2023 Protein [Mass/Vol] 7.5 g/dL 6.4-8.9 [facility] Serum or plasma albumin/glob ulin mass ratioOrdered By: Celio Mullins on 07-03-2023 Albumin/Globulin [Mass ratio] 1.4 {ratio} [facility] Serum or plasma anion gap de terminationOrdered By: Celio Mullins on 07-03-2023 Anion gap [Moles/Vol] 10.2 mmol/L 6.0-15.0 [facility] Serum or plasma high density lipoprotein (HDL) cholesterol measurementOrdered By: Celio Mullins on 07-03-2023 Cholesterol in HDL [Mass/Vol] 39 mg/dL 23-92 [facility] Comment on above: HDL CHOL ATP-III CLA SSIFICATION Cardiovascular RiskHDL > or equal to 60 mg/dL LOWHDL < 40 mg/dL HIGH Serum or plasma total choles terol/high density lipoprotein (HDL) cholesterol mass ratOrdered By: Celio Mullins on 07-03-2023 Cholesterol.total/Mali sterol in HDL [Mass ratio] 3.2 {ratio} <5.0 [facility] Sodium [Moles/volume] in Ser um or PlasmaOrdered By: Celio Mullins on 07-03-2023 Sodium [Moles/Vol] 141 mmol/L 136-145 [facility] Triglyceride [Mass/volume] i n Serum or PlasmaOrdered By: Celio Mullins on 07-03-2023 Triglyceride [Mass/Vol] 92 mg/dL 0-149 F [facility] Comment on above: TRIG ATP III CLASSIF ICATIONTRIG less than 150 mg/dL NormalTRIG 150-199 mg/dL Borderline highTRIG 200-500 mg/dL High TRIG greater than 500 mg/dL Very highStandard traceable to the Center for Disease Conrtrol and Prevention (CDC) test method. Urea nitrogen [Mass/volume] in Serum or PlasmaOrdered By: Celio Mullins on 07-03-2023 Urea nitrogen [Mass/Vol] 13 mg/dL 03-11 [facility] Alanine aminotransferase [En zymatic activity/volume] in Serum or PlasmaOrdered By: Celio Mullins on 07-01-2023 ALT [Catalytic activity/Vol] 21 U/L [facility] Albumin [Mass/volume] in Ser um or Plasma by Bromocresol green (BCG) dye binding methoOrdered By: Celio Mullins on 07-01-2023 Albumin BCG dye [Mass/Vol] 4.6 g/dL 3.5-5.7 [facility] Alkaline phosphatase [Enzyma tic activity/volume] in Serum or PlasmaOrdered By: Celio Mullins on 07-01-2023 ALP [Catalytic activity/Vol] 72 U/L 34-104 [facility] Apolipoprotein B [Mass/volum e] in Serum or PlasmaOrdered By: Celio Mullins on 07-01-2023 Apolipoprotein B [Mass/Vol] 83 mg/dL <90 [facility] Comment on above: Desirable < 90 Charissa almanza High 90 - 99 High 100 - 130 Very High >130 ASCVD RISK THERAPEUTIC TARGET CATEGORY APO B (mg/dL) Very High Risk <80 (if extreme risk <70) High Risk <90 Moderate Risk <90Performed at: - [facility] [place] [address] [id number] Director: Jeanna Case MD, Phone: [phone] Aspartate aminotransferase [ Enzymatic activity/volume] in Serum or PlasmaOrdered By: Celio Mullins on 07-01-2023 AST [Catalytic activity/Vol] 19 U/L 13-39 [facility] Bilirubin.total [Mass/volume ] in Serum or PlasmaOrdered By: Celio Mullins on 07-01-2023 Bilirubin [Mass/Vol] 0.4 mg/dL 0.3-1.0 [facility] Calcium [Mass/volume] in Ser um or PlasmaOrdered By: Celio Mullins on 07-01-2023 Calcium [Mass/Vol] 9.8 mg/dL 8.6-10.3 [facility] Carbon dioxide, total [Moles /volume] in Serum or PlasmaOrdered By: Celio Mullins on 07-01-2023 CO2 [Moles/Vol] 25.3 mmol/L 21.0-31.0 [facility] Chloride [Moles/volume] in S marta or PlasmaOrdered By: Celio Mullins on 07-01-2023 Chloride [Moles/Vol] 105 mmol/L 98-107 [facility] Creatinine [Mass/volume] in Serum or PlasmaOrdered By: Celio Mullins on 07-01-2023 Creatinine [Mass/Vol] 0.64 mg/dL 0.60-1.20 [facility] Globulin Calc (S) [Mass/Vol] Ordered By: Celio Mullins on 07-01-2023 Globulin (S) [Mass/Vol] 3.2 g/dL [facility] Glucose [Mass/volume] in Ser um or PlasmaOrdered By: Celio Mullins on 07-01-2023 Glucose [Mass/Vol] 95 mg/dL 70-100 [facility] Comment on above: ADA recommended refe [...] hemoglobin (Bld) [Mass/Vol] 117 mg/dL [facility] Hemoglobin A1c percentageOrd ered By: Celio Mullins on 07-01-2023 HbA1c (Bld) [Mass fraction] 5.7 % 4.3-5.6 [facility] Comment on above: Increased risk for d iabetes: 5.7 - 6.4diabetes: >6.4glycemic control for adults with diabetes: <7.0 No Panel InformationOrdered By: Celio Mullins on 07-01-2023 Estimated GFR (CKD-EPI) > 60.0 mL/Min [facility] Pharmacy Creatinine Clearance (Chem N/A [facility] Potassium [Moles/volume] in Serum or PlasmaOrdered By: Celio Mullins on 07-01-2023 Potassium [Moles/Vol] 3.8 mmol/L 3.5-5.1 [facility] Protein [Mass/volume] in Ser um or PlasmaOrdered By: Celio Mullins on 07-01-2023 Protein [Mass/Vol] 7.8 g/dL 6.4-8.9 [facility] Serum or plasma albumin/glob ulin mass ratioOrdered By: Celio Mullins on 07-01-2023 Albumin/Globulin [Mass ratio] 1.4 {ratio} [facility] Serum or plasma anion gap de terminationOrdered By: Celio Mullins on 07-01-2023 Anion gap [Moles/Vol] 11.5 mmol/L 6.0-15.0 [facility] Serum or plasma lipoprotein a measurement (moles/volume)Ordered By: Celio Mullins on 07-01-2023 Lipoprotein a [Moles/Vol] 13.0 nmol/L <75.0 [facility] Comment on above: Note: Values greater than or equal to 75.0 nmol/L may indicate an independent risk factor for CHD, but must be evaluated with caution when applied to non- populations due to the influence of genetic factors on Lp(a) across ethnicities.Performed at: - [facility] [id number] Director: Cassius Zhong PhD, Phone: [phone] Sodium [Moles/volume] in Ser um or PlasmaOrdered By: Celio Mullins on 07-01-2023 Sodium [Moles/Vol] 138 mmol/L 136-145 [facility] Urea nitrogen [Mass/volume] in Serum or PlasmaOrdered By: Celio Mullins on 07-01-2023 Urea nitrogen [Mass/Vol] 16 mg/dL 03-11 [facility] COVID Quick Testingon 2022 Result Negative [facility] [employer] Other SARS-CoV-2 (COVID-19) RNA NA A+probe Ql (Resp)on 02-11-2023 SARS-CoV-2 (COVID-19) RNA SURI+probe Ql (Unsp spec) Negative [facility] [employer] Other DHEA-SULFATEon 01-01-2023 DHEA-Sulfate 95.3 ug/dL Normal 84.8-378.0 [facility] Comment on above: Performed By: #### D RIMA #### [facility] [address] [place] [address] Dr. Kaushik Palomares FSHon 01-01-2023 FSH 4.6 mIU/mL Normal [facility] Comment on above: Result Comment: Adul t Female: Follicular phase 3.5 - 12.5 Ovulation phase 4.7 - 21.5 Luteal phase 1.7 - 7.7 Postmenopausal 25.8 - 134.8 Performed By: #### C BC #### [facility] [address] [place] [address] Dr. Kaushik Palomares LUTEINIZING HORMONE (LH)on 01-01-2023 LH 3.5 mIU/mL Normal [facility] Comment on above: Result Comment: Adul t Female: Follicular phase 2.4 - 12.6 Ovulation phase 14.0 - 95.6 Luteal phase 1.0 - 11.4 Postmenopausal 7.7 - 58.5 Performed By: #### L BCL #### [facility] [address] [place] [address] Dr. Kaushik Palomares CBC AUTO DIFFon 12-31-2022 BASO # 0.1 103/ul Normal 0.0-0.1 [facility] Comment on above: Performed By: #### C BC #### [facility] [address] [place] [address] Dr. Kaushik Palomares Basophils/100 WBC (Bld) 0.8 % Normal 0.2-2.0 [facility] Comment on above: Performed By: #### C BC #### [facility] [address] [place] [address] Dr. Kaushik Palomares EO # 0.1 103/ul Normal 0.0-0.7 [facility] Comment on above: Performed By: #### C BC #### [facility] [address] [place] [address] Dr. Kaushik Palomares Eosinophils/100 WBC (Bld) 1.7 % Normal 0.9-7.0 [facility] Comment on above: Performed By: #### C BC #### [facility] [address] [place] [address] Dr. Kaushik Palomares Erythrocyte distribution width (RBC) [Ratio] 12.8 % Normal 11.0-15.0 [facility] Comment on above: Performed By: #### C BC #### [facility] [address] [place] [address] Dr. Kaushik Palomares Hematocrit (Bld) [Volume fraction] 33.0 % Critically low 36.0-48.0 [facility] Comment on above: Performed By: #### C BC #### [facility] [address] [place] [address] Dr. Kaushik Palomares Hemoglobin (Bld) [Mass/Vol] 11.0 g/dL Critically low 12.0-16.0 [facility] Comment on above: Performed By: #### C BC #### [facility] [address] [place] [address] Dr. Kaushik Palomares IG # 0.03 10e3/ul Normal 0.00-0.03 [facility] Comment on above: Performed By: #### C BC #### [facility] [address] [place] [address] Dr. Kaushik Palomares IG % 0.5 % Normal 0.0-0.5 [facility] Comment on above: Performed By: #### C BC #### [facility] [address] [place] [address] Dr. Kaushik Palomares LYMPH # 2.4 103/ul Normal 1.2-3.8 [facility] Comment on above: Performed By: #### C BC #### [facility] [address] [address] [address] Kaushik Palomares Lymphocytes/100 WBC (Bld) 36.6 % Normal 20.5-60.0 [facility] Comment on above: Performed By: #### C BC #### [facility] [address] [address] [address] Kaushik Palomares MANUAL DIFF REQ NO Normal [facility] Comment on above: Performed By: #### C BC #### [facility] [address] [address] [address] Kaushik Palomares MCH (RBC) [Entitic mass] 29.0 pg Normal 26.7-34.0 [facility] Comment on above: Performed By: #### C BC #### [facility] [address] [place] [address] Dr. Kaushik Palomares MCHC (RBC) [Mass/Vol] 33.3 g/dL Normal 29.9-35.2 [facility] Comment on above: Performed By: #### C BC #### [facility] [address] [place] [address] Dr. Kaushik Palomares MCV (RBC) [Entitic vol] 87.1 fL Normal 81.0-99.0 [facility] Comment on above: Performed By: #### C BC #### [facility] [address] [place] [address] Dr. Kaushik Palomares MONO # 0.2 103/ul Critically low 0.3-0.8 [facility] Comment on above: Performed By: #### C BC #### [facility] [address] [place] [address] Dr. Kaushik Palomares Monocytes/100 WBC (Bld) 3.6 % Normal 1.7-12.0 [facility] Comment on above: Performed By: #### C BC #### [facility] [address] [place] [address] Dr. Kaushik Palomares NEUT # 3.7 103/ul Normal 1.4-6.5 [facility] Comment on above: Performed By: #### C BC #### [facility] [address] [address] [address] Kaushik Palomares Neutrophils/100 WBC (Bld) 56.8 % Normal 43.0-75.0 [facility] Comment on above: Performed By: #### C BC #### [facility] [address] [place] [address] Dr. Kaushik Palomares Platelet mean volume (Bld) [Entitic vol] 9.8 fL Normal 9.5-13.5 [facility] Comment on above: Performed By: #### C BC #### [facility] [address] [address] [address] Kaushik Palomares PLT 234 103/ul Normal 150-450 [facility] Comment on above: Performed By: #### C BC #### [facility] [address] [place] [address] Dr. Kaushik Palomares RBC 3.79 106/ul Critically low 4.20-5.40 [facility] Comment on above: Performed By: #### C BC #### [facility] [address] [place] [address] Dr. Kaushik Palomares WBC 6.5 103/ul Normal 4.0-11.0 [facility] Comment on above: Performed By: #### C BC #### [facility] [address] [place] [address] Dr. Kaushik Palomares FREE T4on 12-31-2022 Free T4 [Mass/Vol] 0.79 ng/dL Normal 0.76-1.46 [facility] Comment on above: Performed By: #### F T4 #### [facility] [address] [place] [address] Dr. Kaushik Palomares GLYCOHEMOGLOBIN A1Con 2022 ADA RECOMMENDATION SEE BELOW Normal [facility] Comment on above: Result Comment: ADA RECOMMENDED LIMIT 4.0 - 6.0 ADA THERAPEUTIC TARGET < 7.0 ACTION SUGGESTED > 7.0 Performed By: #### A 1C #### [facility] [address] [place] [address] Dr. Kaushik Palomares Glucose [Mass/Vol] 111 mg/dL Normal [facility] Comment on above: Performed By: #### A 1C #### [facility] [address] [place], [place] [address] Dr. Kaushik Palomares HbA1c (Bld) [Mass fraction] 5.5 % Normal 4.5-6.2 [facility] Comment on above: Performed By: #### A 1C #### [facility] [address] [place], [place] [address] Dr. Kaushik Palomares TSHon 12-31-2022 TSH 1.114 uIU/mL Normal 0.358-3.74 0 [facility] Comment on above: Performed By: #### C BC #### [facility] [address] [place], [place] [address] Dr. Kaushik Palomares US PELVIS AND TRANSVAGon [...] SUGEY MACDONALD Date: 2022-11-26 15:58 Normal [facility] XR SACRUM_COCCYXon 3 XR SACRUM_COCCYX [...] spine and sacrum. Electronically authenticated by: SUGEY ZIJOSEALEKSANDRA Date: 2022-11-08 10:01 Normal [facility] PAP ACOG PANEL 2: 30 to 65on 11-05-2022 . . Normal [facility] Comment on above: Result Comment: Perf ormed at: WB Performed By: #### C BC #### [facility] [address] [address] [address] Kaushik Palomares Age Gdln ACOG Testing 30-65 Normal [facility] Comment on above: Performed By: #### C BC #### [facility] [address] [address] [address] Kaushik Palomares DIAGNOSIS: Comment Normal [facility] Comment on above: Result Comment: NEGA TIVE FOR INTRAEPITHELIAL LESION OR MALIGNANCY. Performed at: WB Performed By: #### C BC #### [facility] [address] [address] [address] Kaushik Palomares HPV Aptima Negative Normal Negative [facility] Comment on above: Result Comment: This nucleic acid amplification test detects fourteen high-risk HPV types (16,18,31,33,35,39,45,51,52,56,58,59,66,68) without differentiation. Performed at: =G Performed By: #### C BC #### [facility] [address] [address] [address] Kaushik Palomares HPV Genotype Reflex Comment Normal [facility] Comment on above: Result Comment: Crit eria not met, HPV Genotype not performed. Performed at: WB Performed By: #### C BC #### [facility] [address] [address] [address] Kaushik Palomares Methodology: Comment Normal [facility] Comment on above: Result Comment: This liquid based ThinPrep(R) pap test was screened with the use of an image guided system. Performed at: WB Performed By: #### C BC #### [facility] [address] [place] [address] Dr. Kaushik Palomares Note: Comment Normal [facility] Comment on above: Result Comment: The [...] WB Performed By: #### C BC #### [facility] [address] [address] [address] Kaushik Palomares Performed by: Comment Normal [facility] Comment on above: Result Comment: Robi Graham, Radiation Control Worker (ASCP) Performed at: WB Performed By: #### C BC #### [facility] [address] [place] [address] Dr. Kaushik Palomares Specimen adequacy: Comment Normal [facility] Comment on above: Result Comment: Sati sfactory for evaluation. Endocervical and/or squamous metaplastic cells (endocervical component) are present. Performed at: WB Performed By: #### C BC #### [facility] [address] [place] [address] Dr. Kaushik Palomares COVID/FLU RT-PCRon 2 SARS-CoV-2 (COVID-19) RNA SURI+probe Ql (Unsp spec) Negative [employer] Other COVID/FLU RT-PCR Negative [facility] [employer] Other HCG-BETA SUBUNIT QUANTon hCG,Beta Subunit,Qnt,Serum <1 [facility] Comment on above: Result Comment: Fema le (Non-) 0 - 5 (Postmenopausal) 0 - 8 . Female () Weeks of Gestation 3 6 - 71 4 10 - 750 5 556 - 1992 6 458 - 02677 7 [phone] -[phone] 8 53437 -[phone] 9 08112 -933410 10 82572 -[id number] 12 88441 -[phone] 14 58355 - 27530 15 25359 - 54335 16 1246 - 72926 17 8810 - 38137 18 0454 - 70249 Rg ECLIA methodology Performed By: #### H CGSUB #### [facility] [address] [place] [address] Dr. Kaushik Palomares T4 LABCORPon 01-22-2022 T4 [Mass/Vol] 7.8 ug/dL Normal 4.5-12.0 [facility] Comment on above: Performed By: #### T 4LC #### [facility] [address] [place] [address] Dr. Kaushik Palomares CBC AUTO DIFFon 01-21-2022 BASO # 0.1 103/ul Normal 0.0-0.1 [facility] Comment on above: Performed By: #### C BC #### [facility] [address] [place] [address] Dr. Kaushik Palomares Basophils/100 WBC (Bld) 0.6 % Normal 0.2-2.0 [facility] Comment on above: Performed By: #### C BC #### [facility] [address] [place] [address] Dr. Kaushik Palomares EO # 0.1 103/ul Normal 0.0-0.7 [facility] Comment on above: Performed By: #### C BC #### [facility] [address] [place] [address] Dr. Kaushik Palomares Eosinophils/100 WBC (Bld) 1.2 % Normal 0.9-7.0 [facility] Comment on above: Performed By: #### C BC #### [facility] [address] [place] [address] Dr. Kaushik Palomares Erythrocyte distribution width (RBC) [Ratio] 13.3 % Normal 11.0-15.0 [facility] Comment on above: Performed By: #### C BC #### [facility] [address] [place] [address] Dr. Kaushik Palomares Hematocrit (Bld) [Volume fraction] 40.0 % Normal 36.0-48.0 [facility] Comment on above: Performed By: #### C BC #### [facility] [address] [place] [address] Dr. Kaushik Palomares Hemoglobin (Bld) [Mass/Vol] 12.7 g/dL Normal 12.0-16.0 [facility] Comment on above: Performed By: #### C BC #### [facility] [address] [place] [address] Dr. Kaushik Palomares IG # 0.02 10e3/ul Normal 0.00-0.03 [facility] Comment on above: Performed By: #### C BC #### [facility] [address] [place] [address] Dr. Kaushik Palomares IG % 0.2 % Normal 0.0-0.5 [facility] Comment on above: Performed By: #### C BC #### [facility] [address] [place] [address] Dr. Kaushik Palomares LYMPH # 3.0 103/ul Normal 1.2-3.8 [facility] Comment on above: Performed By: #### C BC #### [facility] [address] [place] [address] Dr. Kaushik Palomares Lymphocytes/100 WBC (Bld) 32.9 % Normal 20.5-60.0 [facility] Comment on above: Performed By: #### C BC #### [facility] [address] [place] [address] Dr. Kaushik Palomares MANUAL DIFF REQ NO Normal [facility] Comment on above: Performed By: #### C BC #### [facility] [address] [place] [address] Dr. Kaushik Palomares MCH (RBC) [Entitic mass] 28.5 pg Normal 26.7-34.0 [facility] Comment on above: Performed By: #### C BC #### [facility] [address] [place] [address] Dr. Kaushik Palomares MCHC (RBC) [Mass/Vol] 31.8 g/dL Normal 29.9-35.2 [facility] Comment on above: Performed By: #### C BC #### [facility] [address] [address] [address] Kaushik Palomares MCV (RBC) [Entitic vol] 89.7 fL Normal 81.0-99.0 [facility] Comment on above: Performed By: #### C BC #### [facility] [address] [address] [address] Kaushik Palomares MONO # 0.5 103/ul Normal 0.3-0.8 [facility] Comment on above: Performed By: #### C BC #### [facility] [address] [place] [address] Dr. Kaushik Palomares Monocytes/100 WBC (Bld) 5.1 % Normal 1.7-12.0 [facility] Comment on above: Performed By: #### C BC #### [facility] [address] [place] [address] Dr. Kaushik Palomares NEUT # 5.4 103/ul Normal 1.4-6.5 [facility] Comment on above: Performed By: #### C BC #### [facility] [address] [place] [address] Dr. Kaushik Palomares Neutrophils/100 WBC (Bld) 60.0 % Normal 43.0-75.0 [facility] Comment on above: Performed By: #### C BC #### [facility] [address] [place] [address] Dr. Kaushik Palomares Platelet mean volume (Bld) [Entitic vol] 9.3 fL Critically low 9.5-13.5 [facility] Comment on above: Performed By: #### C BC #### [facility] [address] [place] [address] Dr. Kaushik Palomares PLT 221 103/ul Normal 150-450 [facility] Comment on above: Performed By: #### C BC #### [facility] [address] [place] [address] Dr. Kaushik Palomares RBC 4.46 106/ul Normal 4.20-5.40 [facility] Comment on above: Performed By: #### C BC #### [facility] [address] [address] [address] Kaushik Palomares WBC 9.0 103/ul Normal 4.0-11.0 [facility] Comment on above: Performed By: #### C BC #### [facility] [address] [address] [address] Kaushik Palomares GLYCOHEMOGLOBIN A1Con 2021 ADA RECOMMENDATION SEE BELOW Normal [facility] Comment on above: Result Comment: ADA RECOMMENDED LIMIT 4.0 - 6.0 ADA THERAPEUTIC TARGET < 7.0 ACTION SUGGESTED > 7.0 Performed By: #### C BC #### [facility] [address] [address] [address] Kaushik Palomares Glucose [Mass/Vol] 94 mg/dL Normal [facility] Comment on above: Performed By: #### C BC #### [facility] [address] [place] [address] Dr. Kaushik Palomares HbA1c (Bld) [Mass fraction] 4.9 % Normal 4.5-6.2 [facility] Comment on above: Performed By: #### C BC #### [facility] [address] [place] [address] Dr. Kaushik Palomares LIPID PROFILEon 01-21-2022 CHOL-HDL RATIO NORM SEE BELOW Normal [facility] Comment on above: Result Comment: 3.3 - 4.4 LOW RISK 4.4 - 7.1 AVERAGE RISK 7.1 - 11.0 MODERATE RISK >11.0 HIGH RISK Performed By: #### L IPID, CMP, TSH #### [facility] [address] [place] [address] Dr. Kaushik Palomares Cholesterol [Mass/Vol] 168 mg/dL Normal <=200 [facility] Comment on above: Performed By: #### L IPID, CMP, TSH #### [facility] [address] [place] [address] Dr. Kaushik Palomares Cholesterol in HDL [Mass/Vol] 41 mg/dL Normal 40-60 [facility] Comment on above: Performed By: #### L IPID, CMP, TSH #### [facility] [address] [place] [address] Dr. Kaushik Palomares Cholesterol in LDL [Mass/Vol] 90.2 mg/dL Normal [facility] Comment on above: Performed By: #### L IPID CMP, TSH #### [facility] [address] [address] [address] Kaushik Palomares Cholesterol.total/Mali sterol in HDL [Mass ratio] 4.1 {ratio} Normal [facility] Comment on above: Performed By: #### L IPID, CMP, TSH #### [facility] [address] [address] [address] Kaushik Palomares HDL NORMAL > or = 60 mg/dl - LO W CARDIOVASCULAR RISK <40 mg/dl - HIGH CARDIOVASCULAR RISK Normal [facility] Comment on above: Performed By: #### L IPID CMP, TSH #### [facility] [address] [place] [address] Dr. Kaushik Palomares LDL CALC NORMAL SEE BELOW Normal [facility] Comment on above: Result Comment: <100 mg/dl OPTIMAL 100 - 129 mg/dl NEAR OR ABOVE OPTIMAL 130 - 159 mg/dl BORDERLINE HIGH 160 - 189 mg/dl HIGH >190 mg/dl VERY HIGH Performed By: #### L IPID, CMP, TSH #### [facility] [address] [place] [address] Dr. Kaushik Palomares Triglyceride [Mass/Vol] 184 mg/dL Critically high <=150 [facility] Comment on above: Performed By: #### L IPID, CMP, TSH #### [facility] [address] [place] [address] Dr. Kaushik Palomares VLDL CALC 36.8 mg/dL Normal [facility] Comment on above: Performed By: #### L IPID, CMP, TSH #### [facility] [address] [address] [address] Kaushik Palomares MICROALBUMIN, RAND URon 06-0 mALB 2.0 mg/L Normal <=30.0 [facility] Comment on above: Performed By: #### C BC #### [facility] [address] [place] [address] Dr. Kaushik Palomares PROF 14(COMP METB)on 022 Albumin [Mass/Vol] 3.7 g/dL Normal 3.4-5.0 [facility] Comment on above: Performed By: #### L IPID, CMP, TSH #### [facility] [address] [address] [address] Kaushik Palomares Albumin/Globulin [Mass ratio] 0.9 {ratio} Normal [facility] Comment on above: Performed By: #### L IPID, CMP, TSH #### [facility] [address] [address] [address] Kaushik Palomares ALP [Catalytic activity/Vol] 53 U/L Normal 46-116 [facility] Comment on above: Performed By: #### L IPID, CMP, TSH #### [facility] [address] [address] [address] Kasuhik Palomares ALT [Catalytic activity/Vol] 44 U/L Normal 14-59 [facility] Comment on above: Performed By: #### L IPID, CMP, TSH #### [facility] [address] [address] [address] Kaushik Palomares Anion gap [Moles/Vol] 6.8 mmol/L Normal [facility] Comment on above: Performed By: #### L IPID, CMP, TSH #### [facility] [address] [address] [address] Kaushik Palomares AST [Catalytic activity/Vol] 22 U/L Normal 15-37 [facility] Comment on above: Performed By: #### L IPID, CMP, TSH #### [facility] [address] [address] [address] Kaushik Palomares Bilirubin [Mass/Vol] 0.3 mg/dL Normal 0.2-1.0 [facility] Comment on above: Performed By: #### L IPID, CMP, TSH #### [facility] [address] [address] [address] Kaushik Palomares Calcium [Mass/Vol] 9.2 mg/dL Normal 8.5-10.1 [facility] Comment on above: Performed By: #### L IPID, CMP, TSH #### [facility] [address] [address] [address] Kaushik Palomares Chloride [Moles/Vol] 102 mmol/L Normal 98-107 [facility] Comment on above: Performed By: #### L IPID, CMP, TSH #### [facility] [address] [address] [address] Kaushik Palomares CO2 [Moles/Vol] 31.4 mmol/L Normal 21.0-32.0 [facility] Comment on above: Performed By: #### L IPID, CMP, TSH #### [facility] [address] [address] [address] Kaushik Palomares Creatinine [Mass/Vol] 0.71 mg/dL Normal 0.55-1.02 [facility] Comment on above: Performed By: #### L IPID, CMP, TSH #### [facility] [address] [place] [address] Dr. Kaushik Palomares EGFR-AF RWANDAN >60 Normal >=60 [facility] Comment on above: Performed By: #### L IPID, CMP, TSH #### [facility] [address] [place] [address] Dr. Kaushik Palomares EGFR-NON AF RWANDAN >60 Normal >=60 [facility] Comment on above: Performed By: #### L IPID, CMP, TSH #### [facility] [address] [address] [address] Kaushik Palomares Globulin (S) [Mass/Vol] 4.2 g/dL Normal [facility] [place] Comment on above: Performed By: #### L IPID, CMP, TSH #### [facility] [address] [address] [address] Kaushik Palomares Glucose [Mass/Vol] 93 mg/dL Normal 74-106 [facility] Comment on above: Performed By: #### L IPID, CMP, TSH #### [facility] [address] [address] [address] Kaushik Palomares Potassium [Moles/Vol] 4.2 mmol/L Normal 3.5-5.1 [facility] Comment on above: Performed By: #### L IPID, CMP, TSH #### [facility] [address] [address] [address] Kaushik Palomares Protein [Mass/Vol] 7.9 g/dL Normal 6.4-8.2 [facility] Comment on above: Performed By: #### L IPID, CMP, TSH #### [facility] [address] [place] [address] Dr. Kaushik Palomares Sodium [Moles/Vol] 136 mmol/L Normal 136-145 [facility] Comment on above: Performed By: #### L IPID, CMP, TSH #### [facility] [address] [place] [address] Dr. Kaushik Palomares Urea nitrogen [Mass/Vol] 11.0 mg/dL Normal 7.0-18.0 [facility] Comment on above: Performed By: #### L IPID, CMP, TSH #### [facility] [address] [place] [address] Dr. Kaushik Palomares Urea nitrogen/Creatinine [Mass ratio] 15.5 mg/mg Normal [facility] Comment on above: Performed By: #### L IPID, CMP, TSH #### [facility] [address] [place] [address] Dr. Kaushik Palomares TSHon 01-21-2022 TSH 1.298 uIU/mL Normal 0.358-3.74 0 [facility] Comment on above: Performed By: #### C BC #### [facility] [address] [place] [address] Dr. Kaushik Palomares TSH RANGE SEE BELOW Normal [facility] Comment on above: Result Comment: <0.3 4 UIU/ml HYPERTHYROID 0.34-5.60 UIU/ml EUTHYROID >5.60 UIU/ml HYPOTHYROID Performed By: #### C BC #### [facility] [address] [place] [address] Dr. Kaushik Palomares COVID Quick Testingon 2020 Result Negative [employer] Other Quick Strepon 06-17-2021 S. pyogenes Org specific cx Ql (Throat) Negative [employer] Other Quick Strep [employer] Other Urinalysis - AUTOMATEDon Appearance (U) cloudy [employer] Other Bilirubin Ql (U) Negative [employer] Other Color (U) yellow [employer] Other Glucose Ql (U) Negative [employer] Other Hemoglobin Ql (U) large [facility]ID[employer] oast [employer] Other Ketones Ql (U) Negative [employer] Other Leukocyte esterase Test strip Ql (U) trace [employer] Other Nitrite Ql (U) Positive [employer] Other pH (U) 5.5 [pH] [employer] Other Protein Ql (U) 100 [employer] Other Specific gravity (U) [Rel density] 1.025 [employer] Other Urobilinogen (U) [Mass/Vol] 0.2 mg/dL [employer] Other Urinalysis - AUTOMATED No rt [email or web address] Other Urine Cultureon 05-31-2021 Urine Culture >100,000 [employer] Other Urine Culture <16 [employer] Other Urine Culture >16 [employer] Other Urine Culture <4 [employer] Other Urine Culture 8 [employer] Other Urine Culture <2 [employer] Other Urine Culture <1 [employer] Other Urine Culture >[address] [facility] [employer] Other Urine Culture <0.[address] [facility] [employer] Other Urine Culture >[address] [facility] [employer] Other Urine Culture >4 [employer] Other Urine Culture <32 [employer] Other Urine Culture >2/[address] [facility] [employer] Other Vital Signs Date Time Vital Sign Value Performing Clinician Faci lity 04-21-2025 16:25-0400 Body height 162.56 cm Manisha Marc APRN Work Phone: [facility] 04-21-2025 16:25-0400 Body mass index (BMI) [Ratio] 59.2 kg/m2 Manisha Marc APRN Work Phone: [facility] 04-21-2025 16:25-0400 Body temperature 98.6 [degF] Manisha Marc APRN Work Phone: [facility] 04-21-2025 16:25-0400 Body weight 156.48 kg Manisha Marc APRN Work Phone: [facility] 04-21-2025 16:25-0400 Diastolic blood pressure 81 mm[Hg] Manisha Marc APRN Work Phone: [facility] 04-21-2025 16:25-0400 Heart rate 101 /min Manisha Marc APRN Work Phone: [facility] 04-21-2025 16:25-0400 Respiratory rate 18 /min Manisha Marc APRN Work Phone: [facility] 04-21-2025 16:25-0400 SaO2% (BldA) [Mass fraction] 97 % Manisha Marc APRN Work Phone: [facility] 04-21-2025 16:25-0400 Systolic blood pressure 127 mm[Hg] Manisha Barclayfani [employer] Work Phone: [facility] 04-15-2025 09:49-0400 Body height 164.11 cm Manisha Barcalyeliudmarycarmentad [employer] Work Phone: [facility] 04-15-2025 09:49-0400 Body mass index (BMI) [Ratio] 57.7 kg/m2 Manisha Barclayfani [employer] Work Phone: [facility] 04-15-2025 09:49-0400 Body weight 155.6 kg Manisha Barclayeliudmarycarmentad [employer] Work Phone: [facility] 04-15-2025 09:49-0400 Diastolic blood pressure 85 mm[Hg] Manisha Tari [employer] Work Phone: [facility] 04-15-2025 09:49-0400 Heart rate 97 /min Manisha Barclayfani [employer] Work Phone: [facility] 04-15-2025 09:49-0400 Respiratory rate 18 /min Manisha Barclayfani [employer] Work Phone: [facility] 04-15-2025 09:49-0400 SaO2% (BldA) [Mass fraction] 97 % Manisha Barclayfani [employer] Work Phone: [facility] 04-15-2025 09:49-0400 Systolic blood pressure 134 mm[Hg] Manisha Tari [employer] Work Phone: [facility] 03-29-2025 10:39-0400 Body height 162.56 cm Manisha Tari [employer] Work Phone: [facility] 03-29-2025 10:39-0400 Body mass index (BMI) [Ratio] 59.1 kg/m2 Manisha Tari [employer] Work Phone: [facility] 03-29-2025 10:39-0400 Body temperature 98 [degF] Manisha Barclayeliudmarycarmentad [employer] Work Phone: [facility] 03-29-2025 10:39-0400 Body weight 156.26 kg Manisha Marc [employer] Work Phone: [facility] 03-29-2025 10:39-0400 Diastolic blood pressure 79 mm[Hg] Manisha Barclayeliudmarycarmentad [employer] Work Phone: [facility] 03-29-2025 10:39-0400 Heart rate 91 /min Manisha Barclayeliudmarycarmentad [employer] Work Phone: [facility] 03-29-2025 10:39-0400 Respiratory rate 18 /min Manisha Barclayeliudmarycarmentad [employer] Work Phone: [facility] 03-29-2025 10:39-0400 SaO2% (BldA) [Mass fraction] 98 % Manisha Barclayfani [employer] Work Phone: [facility] 03-29-2025 10:39-0400 Systolic blood pressure 140 mm[Hg] Manisha Keanetad [employer] Work Phone: [facility] 03-22-2025 08:02-0400 Body height 162.56 cm Manisha Barclayeliudmarycarmentad [employer] Work Phone: [facility] 03-22-2025 08:02-0400 Body mass index (BMI) [Ratio] 58.1 kg/m2 Manisha Barclayeliudmarycarmentad [employer] Work Phone: [facility] 03-22-2025 08:02-0400 Body temperature 98.1 [degF] Manisha Barclayfani [employer] Work Phone: [facility] 03-22-2025 08:02-0400 Body weight 153.76 kg Manisha Barclayeliudmarycarmentad [employer] Work Phone: [facility] 03-22-2025 08:02-0400 Diastolic blood pressure 80 mm[Hg] Manisha Barclayeliudmarycarmentad [employer] Work Phone: [facility] 03-22-2025 08:02-0400 Heart rate 88 /min Manisha Barclayeliudmarycarmentad [employer] Work Phone: [facility] 03-22-2025 08:02-0400 SaO2% (BldA) [Mass fraction] 96 % Manisha Barclayeliudmarycarmentad [employer] Work Phone: [facility] 03-22-2025 08:02-0400 Systolic blood pressure 126 mm[Hg] Manisha Keanetad [employer] Work Phone: [facility] 03-11-2025 12:14-0400 Body height 162.56 cm Manisha Barclayeliudmarycarmentad [employer] Work Phone: [facility] 03-11-2025 12:14-0400 Body mass index (BMI) [Ratio] 58.4 kg/m2 Manisha Keanetad [employer] Work Phone: [facility] 03-11-2025 12:14-0400 Body temperature 98.1 [degF] Manisha Marc [employer] Work Phone: [facility] 03-11-2025 12:14-0400 Body weight 154.44 kg Manisha Marc [employer] Work Phone: [facility] 03-11-2025 12:14-0400 Diastolic blood pressure 78 mm[Hg] Manisha Barclayeliudmarycarmentad [employer] Work Phone: [facility] 03-11-2025 12:14-0400 Heart rate 118 /min Manisha Charlymarycarmentad [employer] Work Phone: [facility] 03-11-2025 12:14-0400 Respiratory rate 18 /min Manisha Charlymarycarmentad [employer] Work Phone: [facility] 03-11-2025 12:14-0400 SaO2% (BldA) [Mass fraction] 98 % Manisha Barclayeliudmarycarmentad [employer] Work Phone: [facility] 03-11-2025 12:14-0400 Systolic blood pressure 126 mm[Hg] Manisha Barclayeliudmarycarmentad [employer] Work Phone: [facility] 03-03-2025 10:20-0400 Body height 162.56 cm Manisha Keanetad [employer] Work Phone: [facility] 03-03-2025 10:20-0400 Body mass index (BMI) [Ratio] 57.9 kg/m2 Manisha Keanetad [employer] Work Phone: [facility] 03-03-2025 10:20-0400 Body weight 153.2 kg Manisha Barclayeliudmarycarmentad [employer] Work Phone: [facility] 02-22-2025 16:50-0400 Body height 162.56 cm Manisha Keanetad [employer] Work Phone: [facility] 02-22-2025 16:50-0400 Body mass index (BMI) [Ratio] 57.9 kg/m2 Manisha Marc [employer] Work Phone: [facility] 02-22-2025 16:50-0400 Body temperature 98.8 [degF] Manisha Barclayeliudmarycarmentad [employer] Work Phone: [facility] 02-22-2025 16:50-0400 Body weight 152.91 kg Manisha Marc [employer] Work Phone: [facility] 02-22-2025 16:50-0400 Diastolic blood pressure 76 mm[Hg] Manisha Barclayeliudmarycarmentad [employer] Work Phone: [facility] 02-22-2025 16:50-0400 Heart rate 108 /min Manisha Barclayfani [employer] Work Phone: [facility] 02-22-2025 16:50-0400 Respiratory rate 18 /min Manisha Barclayfani [employer] Work Phone: [facility] 02-22-2025 16:50-0400 SaO2% (BldA) [Mass fraction] 97 % Manisha Barclayfani [employer] Work Phone: [facility] 02-22-2025 16:50-0400 Systolic blood pressure 119 mm[Hg] Manisha Tari [employer] Work Phone: [facility] 02-17-2025 10:56-0400 Body height 162.56 cm Manisha Barclayeliudmarycarmentad [employer] Work Phone: [facility] 02-17-2025 10:56-0400 Body mass index (BMI) [Ratio] 57.8 kg/m2 Manisha Barclayfani [employer] Work Phone: [facility] 02-17-2025 10:56-0400 Body temperature 96.5 [degF] Manisha Barclayfani [employer] Work Phone: [facility] 02-17-2025 10:56-0400 Body weight 152.86 kg Manisha Keanetad [employer] Work Phone: [facility] 02-17-2025 10:56-0400 Diastolic blood pressure 84 mm[Hg] Manisha Tari [employer] Work Phone: [facility] 02-17-2025 10:56-0400 Heart rate 96 /min Manisha Barclayfani [employer] Work Phone: [facility] 02-17-2025 10:56-0400 SaO2% (BldA) [Mass fraction] 97 % Manisha Barclayfani [employer] Work Phone: [facility] 02-17-2025 10:56-0400 Systolic blood pressure 134 mm[Hg] Manisha Tari [employer] Work Phone: [facility] 11-15-2024 13:35-0400 Body height 162.56 cm Manisha Marc [employer] Work Phone: [facility] 11-15-2024 13:35-0400 Body mass index (BMI) [Ratio] 57.4 kg/m2 Manisha Marc [employer] Work Phone: [facility] 11-15-2024 13:35-0400 Body temperature 97.4 [degF] Manisha Keanetad [employer] Work Phone: [facility] 11-15-2024 13:35-0400 Body weight 151.95 kg Manisha Marc [employer] Work Phone: [facility] 11-15-2024 13:35-0400 Diastolic blood pressure 80 mm[Hg] Manisha Keanetad [employer] Work Phone: [facility] 11-15-2024 13:35-0400 Heart rate 111 /min Manisha Marc [employer] Work Phone: [facility] 11-15-2024 13:35-0400 Systolic blood pressure 122 mm[Hg] Manisha Marc [employer] Work Phone: [facility] 11-03-2024 15:56-0400 Body height 162.6 cm Marko Celestina DO Work Phone: [facility] 11-03-2024 15:56-0400 Body mass index (BMI) [Ratio] 57.12 kg/m2 Marko Eclestina DO Work Phone: [facility] 11-03-2024 15:56-0400 Body weight 150.96 kg Marko Celestina DO Work Phone: [facility] 11-03-2024 15:56-0400 Diastolic blood pressure 70 mm[Hg] Marko Celestina DO Work Phone: [facility] 11-03-2024 15:56-0400 Systolic blood pressure 110 mm[Hg] Marko Celestina DO Work Phone: [facility] 09-27-2024 15:46-0500 Body height 162.56 cm PHYSICIAN NO [facility] 09-27-2024 15:46-0500 Body mass index (BMI) [Ratio] 57.3 kg/m2 PHYSICIAN NO [facility] 09-27-2024 15:46-0500 Body temperature 97.9 [degF] PHYSICIAN NO [facility] 09-27-2024 15:46-0500 Body weight 151.49 kg PHYSICIAN NO [facility] 09-27-2024 15:46-0500 Diastolic blood pressure 83 mm[Hg] PHYSICIAN NO [facility] 09-27-2024 15:46-0500 Heart rate 94 /min PHYSICIAN NO [facility] 09-27-2024 15:46-0500 Respiratory rate 18 /min PHYSICIAN NO [facility] 09-27-2024 15:46-0500 SaO2% (BldA) [Mass fraction] 99 % PHYSICIAN NO [facility] 09-27-2024 15:46-0500 Systolic blood pressure 136 mm[Hg] PHYSICIAN NO [facility] 08-28-2024 13:47-0500 Body height 162.56 cm PHYSICIAN NO [facility] 08-28-2024 13:47-0500 Body mass index (BMI) [Ratio] 57.4 kg/m2 PHYSICIAN NO [facility] 08-28-2024 13:47-0500 Body temperature 97.1 [degF] PHYSICIAN NO [facility] 08-28-2024 13:47-0500 Body weight 151.95 kg PHYSICIAN NO [facility] 08-28-2024 13:47-0500 Diastolic blood pressure 86 mm[Hg] PHYSICIAN NO [facility] 08-28-2024 13:47-0500 Heart rate 105 /min PHYSICIAN NO [facility] 08-28-2024 13:47-0500 Respiratory rate 16 /min PHYSICIAN NO [facility] 08-28-2024 13:47-0500 SaO2% (BldA) [Mass fraction] 97 % PHYSICIAN [facility] 08-28-2024 13:47-0500 Systolic blood pressure 136 mm[Hg] PHYSICIAN NO [facility] 08-24-2024 11:00-0500 Body height 162.56 cm Manisha Marc [employer] Work Phone: [facility] 08-24-2024 11:00-0500 Body mass index (BMI) [Ratio] 56.5 kg/m2 Manisha Marc [employer] Work Phone: [facility] 08-24-2024 11:00-0500 Body temperature 97 [degF] Manisha Marc [employer] Work Phone: [facility] 08-24-2024 11:00-0500 Body weight 149.34 kg Manisha Marc [employer] Work Phone: [facility] 08-24-2024 11:00-0500 Diastolic blood pressure 82 mm[Hg] Manisha Marc [employer] Work Phone: [facility] 08-24-2024 11:00-0500 Heart rate 104 /min Manisha Marc [employer] Work Phone: [facility] 08-24-2024 11:00-0500 SaO2% (BldA) [Mass fraction] 95 % Manisha Marc [employer] Work Phone: [facility] 08-24-2024 11:00-0500 Systolic blood pressure 134 mm[Hg] Manisha Marc [employer] Work Phone: [facility] 08-19-2024 11:05-0500 Diastolic blood pressure 72 mm[Hg] Manisha Marc [employer] Work Phone: [facility] 08-19-2024 11:05-0500 Heart rate 82 /min Manisha Marc [employer] Work Phone: [facility] 08-19-2024 11:05-0500 Respiratory rate 16 /min Manisha Marc [employer] Work Phone: [facility] 08-19-2024 11:05-0500 SaO2% (BldA) [Mass fraction] 99 % Manisha Marc [employer] Work Phone: [facility] 08-19-2024 11:05-0500 Systolic blood pressure 115 mm[Hg] Manisha Marc [employer] Work Phone: [facility] 08-19-2024 09:01-0500 Body height 162.56 cm Manisha Marc [employer] Work Phone: [facility] 08-19-2024 09:01-0500 Body weight 149.68 kg Manisha Marc [employer] Work Phone: [facility] 08-16-2024 11:40-0500 Body mass index (BMI) [Ratio] 57.33 kg/m2 Consuelo Love JAVA TECH Work Phone: [facility] 08-16-2024 11:40-0500 Body weight 151.5 kg Consuelo Love [employer]AVA TE[employer] Work Phone: [facility] 08-16-2024 11:40-0500 Diastolic blood pressure 92 mm[Hg] Consuelo Love JAVA TECH Work Phone: [facility] 08-16-2024 11:40-0500 Heart rate 82 /min Consuelo Love JAVA TECH Work Phone: [facility] 08-16-2024 11:40-0500 SaO2% (BldA) [Mass fraction] 93 % Consuelo Rosadooll JAVA TECH Work Phone: [facility] 08-16-2024 11:40-0500 Systolic blood pressure 144 mm[Hg] Consuelo Love JAVA TECH Work Phone: [facility] 08-09-2024 15:48-0500 Body height 162.56 cm Manisha Marc [employer] Work Phone: [facility] 08-09-2024 15:48-0500 Body mass index (BMI) [Ratio] 58.1 kg/m2 Manisha Marc [employer] Work Phone: [facility] 08-09-2024 15:48-0500 Body temperature 98.7 [degF] Manisha Marc [employer] Work Phone: [facility] 08-09-2024 15:48-0500 Body weight 153.76 kg Manisha Marc [employer] Work Phone: [facility] 08-09-2024 15:48-0500 Diastolic blood pressure 94 mm[Hg] Manisha Marc APRN Work Phone: [facility] 08-09-2024 15:48-0500 Heart rate 135 /min Manisha Marc APRN Work Phone: [facility] 08-09-2024 15:48-0500 SaO2% (BldA) [Mass fraction] 96 % Manisha Marc [employer] Work Phone: [facility] 08-09-2024 15:48-0500 Systolic blood pressure 134 mm[Hg] Manisha Marc APRN Work Phone: [facility] 06-23-2024 12:21-0500 Body mass index (BMI) [Ratio] 57.47 kg/m2 Christhazeler Kenny DO Work Phone: [facility] 06-23-2024 12:21-0500 Body weight 151.86 kg Christopher Kenny DO Work Phone: [facility] 06-23-2024 12:21-0500 Diastolic blood pressure 81 mm[Hg] Abelopher Kenny DO Work Phone: [facility] 06-23-2024 12:21-0500 Heart rate 104 /min Christopher Kenny DO Work Phone: [facility] 06-23-2024 12:21-0500 SaO2% (BldA) [Mass fraction] 95 % Abeljon Cox DO Work Phone: [facility] 06-23-2024 12:21-0500 Systolic blood pressure 132 mm[Hg] Abeljon Cox DO Work Phone: [facility] 06-21-2024 11:18-0500 Body height 162.56 cm SALESPERSON FLYING [employer]ADBryon Marc Work Phone: [facility] 06-21-2024 11:18-0500 Body mass index (BMI) [Ratio] 57 kg/m2 SALESPERSON [employer]YING [employer]ADBryon Marc Work Phone: [facility] 06-21-2024 11:18-0500 Body temperature 97.3 [degF] SALESPERSON FLYING [employer]ADBryon Marc Work Phone: [facility] 06-21-2024 11:18-0500 Body weight 150.81 kg SALESPERSON [employer]YING [employer]ADBryon Marc Work Phone: [facility] 06-21-2024 11:18-0500 Diastolic blood pressure 88 mm[Hg] ROSITA Keaner Work Phone: [facility] 06-21-2024 11:18-0500 Heart rate 135 /min SALESPERSON [employer]YING [employer]ADBryon Parksacher Work Phone: [facility] 06-21-2024 11:18-0500 SaO2% (BldA) [Mass fraction] 94 % SALESPERSON FLYING [employer]ADBryon Marc Work Phone: [facility] 06-21-2024 11:18-0500 Systolic blood pressure 136 mm[Hg] ROSITA Keaner Work Phone: [facility] 06-15-2024 09:29-0400 Body height 162.56 cm ROSITA Keaner Work Phone: [facility] 06-15-2024 09:29-0400 Body mass index (BMI) [Ratio] 57.9 kg/m2 [employer] Manisha Charlyacher Work Phone: [facility] 06-15-2024 09:29-0400 Body temperature 97.5 [degF] [employer] Manisha Denyrbacher Work Phone: [facility] 06-15-2024 09:29-0400 Body weight 152.97 kg SALESPERSON FLYING [employer]ADBryon ColladoManisha Charlyacher Work Phone: [facility] 06-15-2024 09:29-0400 Diastolic blood pressure 88 mm[Hg] SALESPERSON FLYING [employer]ADBryon Parksacher Work Phone: [facility] 06-15-2024 09:29-0400 Heart rate 103 /min SALESPERSON FLYING SQUADBryon ColladoManisha Charlyacher Work Phone: [facility] 06-15-2024 09:29-0400 Respiratory rate 18 /min SALESPERSON FLYING [employer]ADBryon ColladoManisha Charlyacher Work Phone: [facility] 06-15-2024 09:29-0400 SaO2% (BldA) [Mass fraction] 95 % [employer] Manisha Charlyacher Work Phone: [facility] 06-15-2024 09:29-0400 Systolic blood pressure 128 mm[Hg] SALESPERSON FLYING [employer]QUADBryon ColladoManisha Charlyacher Work Phone: [facility] 04-21-2024 14:31-0400 Body height 162.56 cm SALESPERSON FLYING [employer]ADBryon Parksacher Work Phone: [facility] 04-21-2024 14:31-0400 Body mass index (BMI) [Ratio] 55 kg/m2 SALESPERSON FLYING [employer]ADBryon Parksacher Work Phone: [facility] 04-21-2024 14:31-0400 Body weight 145.6 kg SALESPERSON FLYING [employer]ADBryon Parksacher Work Phone: [facility] 04-21-2024 14:31-0400 Diastolic blood pressure 88 mm[Hg] [employer] Manisha Denyrbacher Work Phone: [facility] 04-21-2024 14:31-0400 Heart rate 111 /min SALESPERSON FLYING SQUADBryon Dyer Denyrbacher Work Phone: [facility] 04-21-2024 14:31-0400 SaO2% (BldA) [Mass fraction] 97 % [employer] Manisha Denyrbacher Work Phone: [facility] 04-21-2024 14:31-0400 Systolic blood pressure 136 mm[Hg] [employer] Manisha Denyrbacher Work Phone: [facility] 11-26-2023 08:40-0400 Body height 162.56 cm [employer] Manisha Denyrbacher Work Phone: [facility] 11-26-2023 08:40-0400 Body mass index (BMI) [Ratio] 52.9 kg/m2 [employer] Manisha Denyrbacher Work Phone: [facility] 11-26-2023 08:40-0400 Body weight 139.79 kg SALESPERSON FLYING [employer]ADBryon Barclayrbacher Work Phone: [facility] 11-26-2023 08:40-0400 Diastolic blood pressure 79 mm[Hg] [employer] Manisha Denyrbacher Work Phone: [facility] 11-26-2023 08:40-0400 Heart rate 97 /min [employer] Manisha Denyrbacher Work Phone: [facility] 11-26-2023 08:40-0400 SaO2% (BldA) [Mass fraction] 99 % [employer] Manisha Denyrbacher Work Phone: [facility] 11-26-2023 08:40-0400 Systolic blood pressure 131 mm[Hg] [employer] Manisha Denyrbacher Work Phone: [facility] 11-03-2023 14:06-0400 Body height 162.56 cm [employer]ERSON [employer] Manisha Denyrbacher Work Phone: [facility] 11-03-2023 14:06-0400 Body mass index (BMI) [Ratio] 53.1 kg/m2 [employer] Manisha Denyrbacher Work Phone: [facility] 11-03-2023 14:06-0400 Body weight 140.61 kg [employer] Manisha Denyrbacher Work Phone: [facility] 11-03-2023 14:06-0400 Diastolic blood pressure 78 mm[Hg] [employer]ERSON [employer] Manisha Denyrbacher Work Phone: [facility] 11-03-2023 14:06-0400 Heart rate 105 /min [employer] Manisha Denyrbacher Work Phone: [facility] 11-03-2023 14:06-0400 SaO2% (BldA) [Mass fraction] 98 % [employer] Manisha Denyrbacher Work Phone: [facility] 11-03-2023 14:06-0400 Systolic blood pressure 118 mm[Hg] [employer]ERSON [employer] Manisha Denyrbacher Work Phone: [facility] 10-08-2023 10:50-0500 Body height 162.56 cm SALESPERSON FLYING SQUADBryon ColladoManisha Denyrbacher Work Phone: [facility] 10-08-2023 10:50-0500 Body weight 139.25 kg SALESPERSON FLYING SQUADBryon ThaoManisha Denyrbacher Work Phone: [facility] 10-01-2023 09:20-0500 Body height 162.56 cm SALESPERSON FLYING [employer]QUADBryon ColladoManisha Denyrbacher Work Phone: [facility] 10-01-2023 09:20-0500 Body mass index (BMI) [Ratio] 53.6 kg/m2 SALESPERSON FLYING [employer]ADBryon Barclayrbacher Work Phone: [facility] 10-01-2023 09:20-0500 Body weight 141.69 kg [employer] Manisha Denyrbacher Work Phone: [facility] 10-01-2023 09:20-0500 Diastolic blood pressure 75 mm[Hg] SALESPERSON [employer] Manisha Denyrbacher Work Phone: [facility] 10-01-2023 09:20-0500 Heart rate 85 /min [employer] Manisha Denyrbacher Work Phone: [facility] 10-01-2023 09:20-0500 Respiratory rate 18 /min [employer] Mnaisha Denyrbacher Work Phone: [facility] 10-01-2023 09:20-0500 SaO2% (BldA) [Mass fraction] 99 % [employer] Manisha Denyrbacher Work Phone: [facility] 10-01-2023 09:20-0500 Systolic blood pressure 123 mm[Hg] SALESPERSON FLYING SQUADBryon ThaoManisha Denyrbacher Work Phone: [facility] 09-03-2023 08:00-0500 Body height 162.56 cm [employer]ERSON [employer] Manisha Denyeliudacher Work Phone: [facility] 09-03-2023 08:00-0500 Body weight 138.79 kg [employer]ERSON [employer] Manisha Denyrbacher Work Phone: [facility] 09-03-2023 08:00-0500 Diastolic blood pressure 78 mm[Hg] ROSITA Thaonifer Denyrbacher Work Phone: [facility] 09-03-2023 08:00-0500 Systolic blood pressure 118 mm[Hg] ROSITA Colladofer Denyrbacher Work Phone: [facility] 08-19-2023 09:45-0500 Body height 162.56 cm Nely Cruz Other [facility] 08-13-2023 14:00-0500 Body height 162.56 cm Manisha Marc Other [facility] 08-13-2023 14:00-0500 Body mass index (BMI) [Ratio] 52.35 kg/m2 Manisha Marc Other [employer] Other 08-13-2023 14:00-0500 Body weight 138.35 kg Manisha Marc Other [facility] [employer] Other 08-13-2023 14:00-0500 Body weight 138.34 kg SALESPERSON FLYING [employer]QUADBryon Marc Work Phone: [facility] 08-13-2023 14:00-0500 Diastolic blood pressure 80 mm[Hg] Manisha Marc Other [facility] 08-13-2023 14:00-0500 SaO2% (BldA) [Mass fraction] 98 % Manisha Marc Other [facility] [employer] Other 08-13-2023 14:00-0500 Systolic blood pressure 114 mm[Hg] Manisha Marc Other [facility] 07-15-2023 07:45-0500 Body height 162.56 cm [employer] Other [facility] 07-15-2023 07:45-0500 Body mass index (BMI) [Ratio] 52.98 kg/m2 [employer] Other [facility] [employer] Other 07-15-2023 07:45-0500 Body weight 140.03 kg Celio [employer] Other [employer] Other 07-15-2023 07:45-0500 Body weight 140.02 kg ROSITA Marc Work Phone: [facility] 07-15-2023 07:45-0500 Diastolic blood pressure 66 mm[Hg] Celio Mullins Other [facility] 07-15-2023 07:45-0500 Respiratory rate 18 /min Celio Mullins Other [employer] Other 07-15-2023 07:45-0500 SaO2% (BldA) [Mass fraction] 98 % eClio Mullins Other [employer] Other 07-15-2023 07:45-0500 Systolic blood pressure 112 mm[Hg] Celio Mullins Other [facility] 07-07-2023 11:15-0500 Body height 162.56 cm Michelle Ernandez Other [facility] 07-07-2023 11:15-0500 Body mass index (BMI) [Ratio] 52.69 kg/m2 Michelle Oma Other [employer] Other 07-07-2023 11:15-0500 Body temperature 98 [degF] Michelle Oma Other [employer] Other 07-07-2023 11:15-0500 Body weight 139.26 kg Michelle Ernandez Other [employer] Other 07-07-2023 11:15-0500 Body weight 139.25 kg ROSITA Marc Work Phone: [facility] 07-07-2023 11:15-0500 Respiratory rate 20 /min Michelle Ernandez Other [employer] Other 07-07-2023 11:15-0500 SaO2% (BldA) [Mass fraction] 98 % Michellenawaf Ernandez Other [employer] Other 06-29-2023 10:20-0500 Body height 162.56 cm Michelle Ernandez Other [employer] Other 06-29-2023 10:20-0500 Body mass index (BMI) [Ratio] 53.03 kg/m2 Michelle Ernandez Other [employer] Other 06-29-2023 10:20-0500 Body temperature 99.7 [degF] Michelle Ernandez Other [employer] Other 06-29-2023 10:20-0500 Body weight 140.16 kg Michelle Ernandez Other [employer] Other 06-29-2023 10:20-0500 Respiratory rate 19 /min Michelle Ernandez Other [employer] Other 06-29-2023 10:20-0500 SaO2% (BldA) [Mass fraction] 98 % Michelle Ernandez Other [employer] Other 06-11-2023 15:30-0400 Body height 162.56 cm Manisha Marc Other [employer] Other 06-11-2023 15:30-0400 Body mass index (BMI) [Ratio] 53.79 kg/m2 Manisha Marc Other [employer] Other 06-11-2023 15:30-0400 Body weight 142.16 kg Manisha Marc Other [employer] Other 06-11-2023 15:30-0400 Diastolic blood pressure 62 mm[Hg] Manisha Marc Other [employer] Other 06-11-2023 15:30-0400 SaO2% (BldA) [Mass fraction] 99 % Manisha Marc Other [employer] Other 06-11-2023 15:30-0400 Systolic blood pressure 126 mm[Hg] Manisha Barclayfani Other [employer] Other 05-06-2023 13:40-0400 Body height 162.56 cm Casandra Hassan Other [employer] Other 05-06-2023 13:40-0400 Body mass index (BMI) [Ratio] 53.65 kg/m2 Casandra Hassan Other [employer] Other 05-06-2023 13:40-0400 Body temperature 98.4 [degF] Casandra Hassan Other [employer] Other 05-06-2023 13:40-0400 Body weight 141.8 kg Casandra Hassan Other [employer] Other 05-06-2023 13:40-0400 Diastolic blood pressure 81 mm[Hg] Casandra Hassan Other [employer] Other 05-06-2023 13:40-0400 Respiratory rate 18 /min Casandra Hassan Other [employer] Other 05-06-2023 13:40-0400 SaO2% (BldA) [Mass fraction] 95 % Casandra Hassan Other [employer] Other 05-06-2023 13:40-0400 Systolic blood pressure 134 mm[Hg] Casandra Hassan Other [employer] Other 04-30-2023 08:30-0400 Body height 162.56 cm Manisha Marc Other [employer] Other 04-30-2023 08:30-0400 Body mass index (BMI) [Ratio] 53.86 kg/m2 Manisha Marc Other [employer] Other 04-30-2023 08:30-0400 Body weight 142.34 kg Manisha Marc Other [employer] Other 04-30-2023 08:30-0400 Diastolic blood pressure 82 mm[Hg] Manisha Marc Other [employer] Other 04-30-2023 08:30-0400 SaO2% (BldA) [Mass fraction] 100 % Manisha Marc Other [employer] Other 04-30-2023 08:30-0400 Systolic blood pressure 120 mm[Hg] Manisha Marc Other [employer] Other 04-29-2023 07:00-0400 Body height 162.56 cm Nely Fitt Other [employer] Other 04-29-2023 07:00-0400 Body mass index (BMI) [Ratio] 54.41 kg/m2 Nely Fitt Other [employer] Other 04-29-2023 07:00-0400 Body weight 143.79 kg Nely Fitt Other [employer] Other 03-25-2023 13:45-0400 Body height 162.56 cm Celio Mullins Other [employer] Other 03-25-2023 13:45-0400 Body mass index (BMI) [Ratio] 55.45 kg/m2 Celio Mullins Other [employer] Other 03-25-2023 13:45-0400 Body weight 146.56 kg Celio Mullins Other [employer] Other 03-25-2023 13:45-0400 Diastolic blood pressure 57 mm[Hg] Celio Mullins Other [employer] Other 03-25-2023 13:45-0400 Respiratory rate 18 /min Celio Mullins Other [employer] Other 03-25-2023 13:45-0400 SaO2% (BldA) [Mass fraction] 97 % Celio Mullins Other [employer] Other 03-25-2023 13:45-0400 Systolic blood pressure 106 mm[Hg] Celio Mullins Other [employer] Other 02-11-2023 12:15-0400 Body height 163.83 cm Casandra Hassan Other [employer] Other 02-11-2023 12:15-0400 Body mass index (BMI) [Ratio] 54.88 kg/m2 Casandra Hassan Other [employer] Other 02-11-2023 12:15-0400 Body temperature 98 [degF] Casandra Hassan Other [employer] Other 02-11-2023 12:15-0400 Body weight 147.33 kg Casandra Tesfayeley Other [employer] Other 02-11-2023 12:15-0400 Diastolic blood pressure 85 mm[Hg] Casandra Tesfayeley Other [employer] Other 02-11-2023 12:15-0400 Respiratory rate 18 /min Casnadra Tesfayeley Other [employer] Other 02-11-2023 12:15-0400 SaO2% (BldA) [Mass fraction] 98 % Casandra Tesfayeley Other [facility] Other 02-11-2023 12:15-0400 Systolic blood pressure 128 mm[Hg] Casandra Sonya Other [employer] Other 07-13-2022 11:15-0500 Body height 163.83 cm Michelle Haynesmond Other [employer] Other 07-13-2022 11:15-0500 Body mass index (BMI) [Ratio] 51.54 kg/m2 Michelle Oma Other [employer] Other 07-13-2022 11:15-0500 Body temperature 96.6 [degF] Michelle Oma Other [employer] Other 07-13-2022 11:15-0500 Body weight 138.35 kg Michelle Oma Other [employer] Other 07-13-2022 11:15-0500 Respiratory rate 18 /min Michelle Ernandez Other [employer] Other 07-13-2022 11:15-0500 SaO2% (BldA) [Mass fraction] 96 % Michelle Haynesmond Other [facility] Other 07-06-2021 13:00-0500 Body height 163.83 cm Michelle Haynesmond Other [facility] Other 07-06-2021 13:00-0500 Body mass index (BMI) [Ratio] 49 kg/m2 Michelle Oma Other [facility] Other 07-06-2021 13:00-0500 Body temperature 97.5 [degF] Michelle Oma Other [employer] Other 07-06-2021 13:00-0500 Body weight 131.54 kg Michelle Haynesmond Other [facility] Other 07-06-2021 13:00-0500 SaO2% (BldA) [Mass fraction] 96 % Michelle Haynesmond Other [facility] Other 06-17-2021 11:00-0400 Body height 163.83 cm Michelle Oma Other [employer] Other 06-17-2021 11:00-0400 Body mass index (BMI) [Ratio] 49.68 kg/m2 Michelle Oma Other [employer] Other 06-17-2021 11:00-0400 Body temperature 98.3 [degF] Michelle Oma Other [employer] Other 06-17-2021 11:00-0400 Body weight 133.36 kg Michelle Haynesmond Other [employer] Other 06-17-2021 11:00-0400 Respiratory rate 18 /min Michelle Oma Other [employer] Other 06-17-2021 11:00-0400 SaO2% (BldA) [Mass fraction] 96 % Michelle Oma Other [facility] Other 05-31-2021 13:50-0400 Body height 163.83 cm Michelle Oma Other [facility] Other 05-31-2021 13:50-0400 Body mass index (BMI) [Ratio] 50.36 kg/m2 Michelle Oma Other [facility] Other 05-31-2021 13:50-0400 Body temperature 97.8 [degF] Michelle Oma Other [employer] Other 05-31-2021 13:50-0400 Body weight 135.17 kg Michelle Oma Other [employer] Other 05-31-2021 13:50-0400 Diastolic blood pressure 90 mm[Hg] Michelle Oma Other [employer] Other 05-31-2021 13:50-0400 Respiratory rate 18 /min Michelle Oma Other [employer] Other 05-31-2021 13:50-0400 SaO2% (BldA) [Mass fraction] 98 % Michelle Oma Other [employer] Other 05-31-2021 13:50-0400 Systolic blood pressure 150 mm[Hg] Michelle Ernandez Other [facility] [employer] Other Encounters Encounter Date Encounter Type Care Provider Facility Start: 05-06-2025 ambulatory Edward Richey acility:[facility] Start: 04-21-2025 End: 04-21-2025 ambulatory Manisha Marc [employer] Work Phone: [facility] Work Phone: Start: 04-21-2025 End: 04-21-2025 Patient encounter procedure Em Garcia APRN -[facility] Work Phone: Start: 04-15-2025 Non-patient / Non-visit Aidan Billings MD -[facility] Work Phone: Start: 04-15-2025 End: 04-15-2025 ambulatory Manisha Marc APRN Work Phone: [facility] Work Phone: Start: 04-15-2025 End: 04-15-2025 Patient encounter procedure Manisha Martin [facility] Work Phone: Start: 04-07-2025 Registered Recurring Kevyn SORENSEN Credible Start: 03-29-2025 End: 03-29-2025 ambulatory Manisha Marc APRN Work Phone: [facility] Work Phone: Start: 03-29-2025 End: 03-29-2025 Patient encounter procedure Casandra Martin APRN -[facility] Work Phone: Start: 03-26-2025 Registered Recurring Kevyn SORENSEN Credible Start: 03-22-2025 End: 03-22-2025 ambulatory Manisha Marc APRN Work Phone: [facility] Work Phone: Start: 03-22-2025 End: 03-22-2025 Patient encounter procedure Manisha Marc APRN ORDER CONTROL CLERK BLOOD BANK -[facility] Work Phone: Start: 03-12-2025 Registered Recurring Kevyn SORENSEN Credible Start: 03-11-2025 End: 03-11-2025 ambulatory Manisha Marc APRN Work Phone: [facility] Work Phone: Start: 03-11-2025 End: 03-11-2025 Patient encounter procedure Casandra Martin [employer] -[facility] Work Phone: Start: 03-03-2025 End: 03-03-2025 ambulatory Manisha Mrac APRN Work Phone: [facility] Work Phone: Start: 03-03-2025 End: 03-03-2025 Patient encounter procedure Syed Leonard MD -[facility] Work Phone: Start: 03-02-2025 Registered Recurring Kevyn SORENSEN Credible Start: 02-28-2025 End: 02-28-2025 ambulatory Bud Combs MD Facility:[facility] Start: 02-22-2025 End: 02-22-2025 ambulatory Manisha Marc APRN Work Phone: [facility] Work Phone: Start: 02-22-2025 End: 02-22-2025 Patient encounter procedure Sakina Real [employer] -[facility] Work Phone: Start: 02-22-2025 Registered Recurring Kevyn SORENSEN Credible Start: 02-17-2025 End: 02-17-2025 Departed Referred Manisha Marc APRN ORDER CONTROL CLERK BLOOD BANK -[facility] [place] Work Phone: Start: 02-17-2025 End: 02-17-2025 ambulatory Manisha Marc APRN Work Phone: [facility] Work Phone: Start: 02-17-2025 End: 02-17-2025 Patient encounter procedure Manisha Marc APRN [facility] Work Phone: Start: 02-16-2025 Registered Recurring Kevyn Reyes Credible Start: 02-08-2025 Registered Recurring Kevyn Reyes Credible Start: 01-24-2025 End: 01-24-2025 ambulatory Bud Combs MD Facility:[facility] Start: 12-28-2024 Non-patient / Non-visit Tiffanie buck MD [facility] Work Phone: Start: 11-30-2024 End: 11-30-2024 ambulatory MELA ANDERSON Not Available Start: 11-15-2024 End: 11-15-2024 ambulatory Manisha Marc APRN Work Phone: [facility] Work Phone: Start: 11-15-2024 End: 11-15-2024 Patient encounter procedure Manisha Marc APRN Work Phone: [facility] Physician [facility] Work Phone: Start: 11-10-2024 End: 11-10-2024 ambulatory CONSUELO LOVE Not Available Start: 11-09-2024 Registered Recurring Manisha Marc APRN Work Phone: [facility] Credible Start: 11-03-2024 Non-patient / Non-visit Sherry Marc APRN Work Phone: [facility] Work Phone: Start: 11-03-2024 [...] Non-visit Sherry Marc APRN Work Phone: [facility] Physician [facility] Work Phone: Start: 09-27-2024 End: 09-27-2024 ambulatory PHYSICIAN NO [facility] Work Phone: Start: 09-27-2024 End: 09-27-2024 Patient encounter procedure PHYSICIAN NO [facility] Physician [facility] Work Phone: Start: 08-28-2024 End: 08-28-2024 ambulatory PHYSICIAN NO [facility] Work Phone: Start: 08-28-2024 End: 08-28-2024 Patient encounter procedure PHYSICIAN NO [facility] Physician [facility] Work Phone: Start: 08-27-2024 Registered Recurring PHYSICIAN NO [facility] Credible Start: 08-24-2024 Registered Recurring PHYSICIAN NO [facility] Credible Start: 08-24-2024 Immune system finding Manisha Marc APRN Work Phone: [facility] Start: 08-24-2024 Patient encounter status Manisha Marc APRN Work Phone: [facility] Start: 08-24-2024 End: 08-24-2024 ambulatory Manisha Marc APRN Work Phone: [facility] Work Phone: Start: 08-24-2024 End: 08-24-2024 Encounter for antibody response examination Manisha Barclayfani [employer] Work Phone: [facility] Start: 08-24-2024 End: 08-24-2024 Encounter for general adult medical examination without abnormal findings Manisha Barclayfani [employer] Work Phone: [facility] Start: 08-24-2024 End: 08-24-2024 Patient encounter procedure Manisha Tari [employer] Work Phone: [facility] Physician [facility] Work Phone: Start: 08-19-2024 Non-patient / Non-visit Sherry aleksandra Marc APRN Work Phone: [facility] Physician [facility] Work Phone: Start: 08-19-2024 End: 08-19-2024 Admission to same day surgery center Manisha Tari BECKER Work Phone: [facility] Ctr-[facility] Work Phone: Start: 08-19-2024 End: 08-19-2024 ambulatory Manisha Tari BECKER Work Phone: [facility] Work Phone: Start: 08-16-2024 End: 08-16-2024 Bamboo flowsheet Consuelo Love JAVA TECH Work Phone: [facility] [address] Start: 08-16-2024 End: 08-16-2024 Bamboo flowsheet Consuelo Love JAVA TECH Work Phone: [facility] [address] Start: 08-16-2024 End: 08-16-2024 ambulatory CONSUELO LOVE Not Available Start: 08-16-2024 End: 08-16-2024 Office outpatient visit 15 minutes Consuelo Love JAVA TECH Work Phone: [facility] Comment on above: Cognitive dysfunctio n (Primary Dx); ALEXX (obstructive sleep apnea); Attention deficit hyperactivity disorder (ADHD), unspecified ADHD type (CMS/HCC); Severe anxiety; Severe episode of recurrent major depressive disorder, without psychotic features (HCC) (CMS/HCC); Bipolar affective disorder, remission status unspecified (CMS/HCC); Episodic migraine (CMS/HCC) Start: 08-09-2024 End: 08-09-2024 ambulatory PHYSICIAN NO FAMILY Facility:[facility] Start: 08-09-2024 End: 08-09-2024 Departed Referred Manisha Marc APRN Work Phone: [facility] [place] Work Phone: Start: 08-09-2024 End: 08-09-2024 Patient encounter procedure Manisha Marc APRN Work Phone: [facility] Physician [facility] Work Phone: Start: 08-03-2024 Registered Recurring Manisha Marc APRN Work Phone: [facility] Start: 07-12-2024 End: 07-12-2024 Patient encounter procedure Mario Mcknight PhD Work Phone: [facility] Comment on above: ADHD (attention defi cit hyperactivity disorder), inattentive type (CMS/HCC) (Primary Dx); ALEXX (obstructive sleep apnea); Bipolar affective disorder, remission status unspecified (CMS/HCC); Other chronic pain; Severe anxiety; Severe episode of recurrent major depressive disorder, without psychotic features (HCC) (CMS/HCC) Start: 07-12-2024 End: 07-12-2024 ambulatory MELA ANDERSON Not Available Start: 06-29-2024 Non-patient / Non-visit Sherry Marc APRN Work Phone: [facility] Physician [facility] Work Phone: Start: 06-28-2024 End: 06-28-2024 Bamboo flowsheet Mario Mcknight PhD Work Phone: [facility] Start: 06-28-2024 End: 06-28-2024 Bamboo flowsheet Mario Mcknight PhD Work Phone: [facility] Start: 06-28-2024 End: 06-28-2024 Patient encounter procedure Mario Mcknight PhD Work Phone: [facility] Comment on above: ADHD (attention defi cit hyperactivity disorder), inattentive type (CMS/HCC) (Primary Dx); Cognitive impairment; ALEXX (obstructive sleep apnea); Bipolar affective disorder, remission status unspecified (CMS/HCC); Other chronic pain Start: 06-28-2024 End: 06-28-2024 ambulatory MARIO MCKNIGHT Not Available Start: 06-25-2024 End: 06-25-2024 Departed Referred Manisha Marc APRN Work Phone: [facility] [place] Work Phone: Start: 06-25-2024 End: 06-25-2024 ambulatory Manisha Marc APRN Work Phone: [facility] Work Phone: Start: 06-25-2024 End: 06-25-2024 Patient encounter procedure Manisha Marc APRN Work Phone: [facility]ician Group-[facility] Work Phone: Start: 06-23-2024 ambulatory Facility:[facility] Start: 06-23-2024 End: 06-23-2024 Bamboo flowsheet Gwen Cox DO [facility] [address] [address] Start: 06-23-2024 End: 06-23-2024 Bamboo flowsheet Gwen Cox DO [facility] [address] Start: 06-23-2024 End: 06-23-2024 Office outpatient new 45 minutes Gwen Cox DO Work Phone: [facility] [address] Comment on above: Cognitive impairment (Primary Dx); Anxiety Start: 06-23-2024 End: 06-23-2024 ambulatory GWEN COX Not Available Start: 06-21-2024 End: 06-21-2024 ambulatory ROSITA Marc Work Phone: [facility] Work Phone: Start: 06-21-2024 End: 06-21-2024 Patient encounter procedure ROSITA Marc Work Phone: [facility] Work Phone: Start: 06-18-2024 Non-patient / Non-visit ROSITA Marc Work Phone: [facility] Physician [facility] Work Phone: Start: 06-15-2024 End: 06-15-2024 Departed Referred ROSITA Marc Work Phone: [facility] [place] Work Phone: Start: 06-15-2024 End: 06-15-2024 ambulatory ROSITA Marc Work Phone: [facility] Work Phone: Start: 06-15-2024 End: 06-15-2024 Patient encounter procedure ROSITA Marc Work Phone: [facility] Physician [facility] Work Phone: Start: 06-07-2024 Non-patient / Non-visit ROSITA Marc Work Phone: [facility] Physician [facility] Work Phone: Start: 05-13-2024 Registered Recurring ROSITA Marc Work Phone: [facility] Start: 04-21-2024 End: 04-21-2024 ambulatory [employer] Manisha Tari Work Phone: [facility] Work Phone: Start: 04-21-2024 End: 04-21-2024 Patient encounter procedure ROSITA Dyer Tari Work Phone: [facility] Physician [facility] Work Phone: Start: 04-15-2024 Non-patient / Non-visit [employer] Toshia milawilfredo Tari Work Phone: [facility] Physician [facility] Work Phone: Start: 04-12-2024 Non-patient / Non-visit [employer] Toshia milawilfredo Tari Work Phone: [facility] Physician [facility] Work Phone: Start: 04-03-2024 Registered Recurring [employer]ERSON [employer] Layla gloriaaleksandra Marc Work Phone: [facility] Credible Start: 03-16-2024 End: 03-16-2024 ambulatory MELA ANDERSON Not Available Start: 01-01-2024 Registered Recurring [employer]ERSON [employer] Layla gloriaaleksandra Marc Work Phone: [facility] Start: 11-26-2023 End: 11-26-2023 ambulatory ROSITA Manisha Tari Work Phone: [facility] Work Phone: Start: 11-26-2023 End: 11-26-2023 Patient encounter procedure SALESPERSON [employer] Manisha Tari Work Phone: [facility] Physician [facility] Work Phone: Start: 11-03-2023 End: 11-03-2023 ambulatory SALESPERSON [employer] Manisha aTri Work Phone: [facility] Work Phone: Start: 11-03-2023 End: 11-03-2023 Patient encounter procedure ROSITA Manisha Tari Work Phone: [facility] Work Phone: Start: 10-30-2023 Non-patient / Non-visit [employer] Toshia lorenzo Diyar Work Phone: [facility] Physician [facility] Work Phone: Start: 10-08-2023 End: 10-08-2023 ambulatory SALESPERSON [employer] Manisha Diyar Work Phone: [facility] Work Phone: Start: 10-08-2023 End: 10-08-2023 Patient encounter procedure SALESPERSON [employer] Manisha Tari Work Phone: [facility] Work Phone: Start: 10-06-2023 Non-patient / Non-visit [employer] Toshia milaryannamita Marc Work Phone: [facility] Physician [facility] Work Phone: Start: 10-01-2023 End: 10-01-2023 ambulatory SALESPERSON [employer] Manisha Tari Work Phone: [facility] Work Phone: Start: 10-01-2023 End: 10-01-2023 Patient encounter procedure ROSITA Marc Work Phone: [facility] Physician [facility] Work Phone: Start: 09-10-2023 Registered Recurring ROSITA Layla gloriaaleksandra Marc Work Phone: [facility] Start: 09-03-2023 End: 09-03-2023 Patient encounter procedure ROSITA Manisha Tari Work Phone: [facility] Physician [facility]- Start: 08-19-2023 End: 08-19-2023 ambulatory Nely Cruz Other [facility] [employer] Other Start: 08-19-2023 IBT FOR OBESITY GROU P 2-10 30M Nely Cruz [facility] Start: 08-19-2023 Registered Recurring [employer]ERSON [employer] Layla gloriaaleksandra Marc Work Phone: [facility] Ctr-Weight Management Work Phone: Start: 08-19-2023 End: 08-19-2023 Patient encounter procedure SALESPERSON [employer] Manisha Tari Work Phone: [facility] Physician Group-[facility] Work Phone: Start: 08-14-2023 Registered Recurring SALESPERSON [employer]YING [employer]ADBryon Marc Work Phone: [facility] C[facility] Credible Start: 08-13-2023 End: 08-13-2023 ambulatory Manisha Marc Other [employer] Other Start: 08-13-2023 Office outpatient vi sit 15 minutes Manisha Marc [facility] Start: 08-13-2023 End: 08-13-2023 Patient encounter procedure ROSITA Thaonifer Tari Work Phone: [facility] Work Phone: Start: 07-19-2023 End: 07-19-2023 ambulatory ROSITA Marc Work Phone: [facility] Work Phone: Start: 07-19-2023 End: 07-19-2023 Patient encounter procedure SALESPERSON FLYING [employer]QUADBryon ThaoManisha Tari Work Phone: [facility] Ctr-Self Pay Exercise Program Start: 07-15-2023 End: 07-15-2023 ambulatory Celio Mullins Other [employer] Other Start: 07-15-2023 Follow-up encounter Celio guerrero [facility] Start: 07-15-2023 End: 07-15-2023 Patient encounter procedure SAL[employer]ERSON [employer] Manisha Tari Work Phone: [facility]ician Group-[facility] Work Phone: Start: 07-07-2023 End: 07-07-2023 ambulatory Michelle Oma Other [employer] Other Start: 07-07-2023 Office outpatient vi sit 15 minutes Michelle Oma [facility] Start: 07-07-2023 End: 07-07-2023 Patient encounter procedure ROSITA Dyer Tari Work Phone: [facility] Physician Group-[facility] Work Phone: Start: 07-03-2023 Registered Recurring ROSITA Laylabryon Marc Work Phone: [facility] Credible Start: 07-03-2023 End: 07-03-2023 ambulatory SAL[employer]ERSON [employer] Manisha Tari Work Phone: [facility] Work Phone: Start: 07-03-2023 End: 07-03-2023 Patient encounter procedure ROSITA Dyer Tari Work Phone: [facility] [place] Work Phone: Start: 07-01-2023 End: 07-01-2023 Patient encounter procedure SALESPERSON [employer] Manisha Tari Work Phone: [facility] [place] Work Phone: Start: 06-29-2023 End: 06-29-2023 ambulatory Michelle Oma Other [employer] Other Start: 06-29-2023 Office outpatient vi sit 15 minutes Michelle Oma [facility] Start: 06-17-2023 Registered Recurring SALESPERSON FLYING SQUADBryon Marc Work Phone: [facility] Ctr-Weight Management Work Phone: Start: 06-11-2023 End: 06-11-2023 ambulatory Manisha Tari Other [employer] Other Start: 06-11-2023 Office outpatient vi sit 25 minutes Manisha Marc [facility] Start: 05-06-2023 End: 05-06-2023 ambulatory Casandra Hassan Other [employer] Other Start: 05-06-2023 Office outpatient vi sit 10 minutes Casandra Hassan [facility] Start: 05-01-2023 End: 05-01-2023 ambulatory Manisha Tari Other [employer] Other Start: 05-01-2023 Telephone encounter Manisha Jacky her [facility] Start: 04-30-2023 End: 04-30-2023 ambulatory Manisha Tari Other [employer] Other Start: 04-30-2023 Encounter for genera l adult medical examination without abnormal findings Manisha Marc [facility] Start: 04-30-2023 Periodic preventive med est patient 18-39 yrs Manisha Marc [facility] Start: 04-29-2023 ([facility] WMNI) WMN Init ial Provider Nely Pepe [facility] Start: 04-29-2023 End: 04-29-2023 ambulatory Nely Cruz Other [facility] Other Start: 03-25-2023 End: 03-25-2023 ambulatory Celio Mullins Other [employer] Other Start: 03-25-2023 Nutrition therapy Celio johns [facility] Start: 03-25-2023 Telephone encounter Celio guerrero [facility] Start: 03-14-2023 End: 03-14-2023 ambulatory Nely Cruz Other [facility] Other Start: 03-14-2023 [facility] Start: 02-11-2023 End: 02-11-2023 ambulatory Casandra Hassan Other [employer] Other Start: 02-11-2023 Office outpatient vi sit 15 minutes Casandra Hassan [facility] Start: 12-31-2022 End: 01-01-[address] MARKO OSCAR . Facility:[facility] Start: 11-26-2022 End: 11-27-[address] MARKO OSCAR . Facility:[facility] Start: 11-08-2022 End: 11-09-[address] THADDEUS ROD Facility:[facility] Start: 10-28-2022 End: 10-28-[address] MARKO OSCAR . Facility:[facility] Start: 07-13-2022 End: 07-13-2022 ambulatory Michelle Ernandez Other [facility] Other Start: 07-13-2022 Office outpatient vi sit 15 minutes Michellenawaf Ernandez [facility] Start: 03-07-2022 End: 03-08-[address] THADDEUS ROD Facility:[facility] Start: 01-25-2022 Encounter for genera l adult medical examination without abnormal findings DR THADDEUS ROD [facility] Start: 01-21-2022 End: 01-22-[address] THADDEUS ROD Facility:[facility] Start: 01-21-2022 End: 01-22-2022 Encounter for general adult medical examination without abnormal findings DR THADDEUS ROD Facility:[facility] Start: 07-06-2021 End: 07-06-2021 ambulatory Michelle Ernandez Other [facility] Other Start: 07-06-2021 Office outpatient vi sit 15 minutes Michellenawaf Ernandez [facility] Start: 06-17-2021 Office outpatient vi sit 15 minutes Michelle Oma [facility] Start: 05-31-2021 Office outpatient vi sit 25 minutes Michelle Ernandez [facility] Start: 08-27-2018 End: 08-27-2018 ambulatory BRENT KINNEY Facility:[facility] Procedures Date Procedure Procedure Detail Performing Clinician Start: 02-17-2025 Urine culture Manisha Tari JANEN Work Phone: Start: 11-03-2024 Urine test visual color cmprsn meths Marko Celestina DO Work Phone: Start: 08-19-2024 Esophagogastroduodenoscopy Manisha Marc [employer] Work Phone: Start: 08-09-2024 Urine culture Manisha Marc APRN Work Phone: Start: 06-25-2024 Urine culture Manisha Tari JANEN Work Phone: Start: 06-15-2024 Bacteria identified in Urine by Culture [employer]YING [employer]QU[employer] Manisha Marc Work Phone: Start: 06-15-2024 Urine culture Manisha Tari JANEN Work Phone: Start: 11-03-2023 Microscopic observation [Identifier] in Cervix by Cyto stain Gwen Cox DO Work Phone: Start: 10-08-2023 MRI of head [employer] Manisha Marc Work Phone: Start: 05-31-2021 Piperacillin/tazobactam Michelle Ernandez Other Start: 08-27-2018 extraction, erupted tooth or exposed root (elevation and/or forceps removal) BRENT TROCONIS Start: 08-27-2018 removal of impacted tooth - soft tissue BRENT TROCONIS Start: 08-27-2018 Urine test visual color cmprsn meths BRENT MENDOZACONIS History of cholecystectomy Histo ry of cholecystectomy Manisha Marc APRN Work Phone: History of cholecystectomy Histo ry of cholecystectomy Manisha Martin DNP Plan of Treatment Date Care Activity Detail Author Start: 10-29-2027 Screening for malign ant neoplasm of cervix [facility] Start: 11-02-2026 Screening for malign ant neoplasm of cervix Pap Smear [facility] Start: 11-09-2025 End: 11-09-2025 Patient encounter procedure 11/09/2025 3:00 PM EDT Office Visit [facility] [address] [facility] [phone] Marko Oscar DO [address] [place] [place] [address] [facility] Start: 02-17-2025 Bacteria identified in Urine by Culture Urine Culture [facility] Start: 02-17-2025 Patient referral [facility] Work Phone: Start: 02-17-2025 Urine culture [facility] Start: 11-30-2024 End: 11-30-2024 Professional / ancillary services management 11/30/2024 1:00 PM EDT Ancillary Procedure [facility] [address] [facility] [phone] [facility] Start: 11-09-2024 End: 11-09-2024 Patient encounter procedure [address] Start: 11-03-2024 End: 11-03-2025 US Pelvis US Pelvis w/ TV Imaging Routine PCOS (polycystic ovarian syndrome) Expected: 11/03/2024, Expires: 11/03/2025 [facility] Comment on above: Expected: 11/03/2024 , Expires: 11/03/2025 Start: 11-02-2024 End: 11-02-2024 Patient encounter procedure 11/02/2024 11:00 AM EDT Office Visit [facility] [address] [facility] [phone] Marko Oscar DO [address] [place] [address] [facility] Start: 08-19-2024 [facility] Start: 08-16-2024 End: 08-16-2024 Patient encounter procedure 08/16/2024 11:20 AM EST Office Visit [facility] [address] [place] [phone] Ivan ConsueloNEVIN albert [address] [place] [phone] [facility] [place] [address] Start: 07-12-2024 End: 07-12-2024 Patient encounter procedure 07/12/2024 8:00 AM EST [facility] [address] [place] [phone] [facility] Start: 06-28-2024 End: 06-28-2024 Patient encounter procedure [facility] Comment on above: Cognitive impairment Start: 06-25-2024 Bacteria identified in Urine by Culture Urine Culture [facility] Start: 06-25-2024 Urine culture [facility] Start: 06-23-2024 End: 06-23-2024 Patient encounter procedure 06/23/2024 12:30 PM EST Office Visit [facility] [address] [place] [phone] Gwen Cox DO [address] [place], [place] [id number] [facility] Comment on above: Arrived Start: 06-21-2024 Patient referral [facility] Work Phone: Start: 06-15-2024 Bacteria identified in Urine by Culture Urine Culture [facility] Start: 06-15-2024 [facility] Start: 06-15-2024 Urine culture [facility] Start: 04-18-2024 Influenza vaccination Influenza Vacc ine (#1) [facility] CHLAMYDIA TRACHOMATI S (GENITO/STI) CHLAMYDIA TRACHOMATIS (GENITO/STI) Lab Routine Exposure to STD Ordered: 11/03/2024 [facility] Comment on above: Ordered: 11/03/2024 Chlamydia trachomati s DNA [Presence] in Unspecified specimen by SURI with probe detection [facility] Comprehensive metabo lic 1999 panel - Serum or Plasma [facility] Comprehensive metabo lic 1999 panel - Serum or Plasma [facility] CT Neck W contrast IV [facility] Cervical or vaginal smear or scraping study Pap Smear Pathology and Cytology Routine Well woman exam with routine gynecological exam Ordered: 11/03/2024 [facility] Work Phone: Comment on above: Ordered: 11/03/2024 Holter monitor study [facility] Human papilloma viru s DNA [Presence] in Unspecified specimen by Probe with amplification HPV DNA probe, amplified Microbiology Routine Well woman exam with routine gynecological exam Ordered: 11/03/2024 [facility] Comment on above: Ordered: 11/03/2024 MR Unspecified body region [facility] Neisseria gonorrhoea e DNA [Presence] in Unspecified specimen by SURI with probe detection [facility] Neisseria gonorrhoea e DNA [Presence] in Unspecified specimen by SURI with probe detection Neisseria gonorrhea DNA probe, direct Lab Routine Exposure to STD Ordered: 11/03/2024 [facility] Comment on above: Ordered: 11/03/2024 Patient Education [facility] Work Phone: Patient referral [facility] Work Phone: SURESWAB(R) ADVANCED VAGINITIS PLUS, TMA SURESWAB(R) ADVANCED VAGINITIS PLUS, TMA Pathology and Cytology Routine Vaginal discharge Ordered: 11/03/2024 [facility] Comment on above: Ordered: 11/03/2024 Trichomonas vaginali s DNA [Presence] in Unspecified specimen by SURI with probe detection [facility] Urine culture [facility] Immunizations Immunization Date Immunization Notes Care Provider Lillie rogers 03-03-2021 Do not use COVID-19 Pfizer 2 dose Manisha Marc Other [facility] 02-10-2021 Do not use COVID-19 Pfizer 2 dose Manisha Marc Other [facility] 08-03-2018 Toradol per 15 mg Michelle Sofia ond Other [facility] Other Payers Date Payer Category Payer Self-pay [id number] 2022 Private Health Insurance [id number] 1991 Unknown [id number] 2.16.840.1.808028.3.579.2. 732 1991 Unknown [id number] 2.16.840.1.562730.3.579.2. 593 1991 Unknown [id number] 2.16.840.1.978530.3.579.2. 593 1991 Unknown [id number] 2.16.840.1.743503.3.579.2. 593 1991 Unknown [id number] 2.16.840.1.989954.3.579.2. 593 1991 Unknown [id number] 2.16.840.1.743706.3.579.2. 593 1991 Unknown [id number] 2.16.840.1.647243.3.579.2. 593 1991 Unknown [id number] 2.16.840.1.433232.3.579.2. 1259 1991 Unknown [id number] 2.16.840.1.996297.3.579.2. 1259 1991 Unknown [id number] 2.16.840.1.790552.3.579.2. 1259 1991 Unknown [id number] 2.16.840.1.798624.3.579.2. 1259 1991 Unknown [id number] 2.16.840.1.484318.3.579.2. 1259 1991 Unknown [id number] 2.16.840.1.013431.3.579.2. 1259 1991 Unknown [id number] 2.16.840.1.876679.3.579.2. 1259 1991 Unknown [id number] 2.16.840.1.542071.3.579.2. 1259 1991 Unknown [id number] 2.16.840.1.686361.3.579.2. 196 1991 Unknown [id number] 2.16.840.1.317989.3.579.2. 196 1959 Medicaid [id number] 1959 Unknown [id number] Unknown [facility] [id number] Unknown [id number] 2.16.840.1.924547.3.579.2. 531 Unknown [id number] 2.16.840.1.143776.3.579.2. 531 Unknown [id number] 2.16.840.1.315327.3.579.2. 531 Unknown [id number] 2.16.840.1.061413.3.579.2. 531 Unknown [id number] 2.16.840.1.538790.3.579.2. 531 Unknown [id number] 2.16.840.1.507513.3.579.2. 531 Social History Date Type Detail Facility Unknown if ever smoked [facility] Other Start: 03-11-2023 End: 03-16-2024 Sex Assigned At [facility] Other Start: 12-07-2021 End: 03-11-2025 Tobacco smoking status NHIS Never smoked tobacco (finding) [facility] Start: 1990 Sex Assigned At Female [facility] Start: 05-31-2024 End: 11-03-2024 Alcoholic beverage intake Not Asked [facility] Start: 07-24-2023 End: 03-16-2024 History of Social function [facility] Start: 03-11-2023 Gender identity Identifies as female gender (finding) [facility] Start: 06-25-2024 End: 11-15-2024 Sex Female (finding) [facility] NEGATED: Highlighted row N [facility] Goals Date Patient Goal Desired Activity /State [...] tract infection) acute February 17, 2025 10:53am [facility] Work Phone: 1(621) 122-246507-03-2025 Evaluation note* Diagnosis Onset Date Resolution Status [...] tract infection) acute February 17, 2025 10:53am [facility] Work Phone: 1(810) 430-968407-03-2025 Evaluation note* Diagnosis Onset Date Resolution Status [...] drug, adverse noneactive J humaira 2024 4:45pm [facility] Work Phone: 1(695) 298-821907-03-2025 Evaluation note* Diagnosis Onset Date Resolution Status [...] or radiculopathy acute March 03, 2025 10:06am [facility] Work Phone: 1([phone]) 182-500007-03-2025 Evaluation note* Diagnosis Onset Date Resolution Status [...] 7:59am Unable to lose weight acute Mar 7:59am Vitamin B12 deficiency acute 2024 7:59am Vitamin D deficiency acute 2024 7:59am [facility] Work Phone: 1([phone]) 204-852507-03-2025 Evaluation note* Diagnosis Onset Date Resolution Status [...] March 22, 2025 7:59am Prediabetes acute March 22 7:59am Unable to lose weight acute Mar 7:59am Vitamin B12 deficiency acute [facility] 2024 7:59am Vitamin D deficiency acute 2024 7:59am Bacterial conjunctivitis acute March 29, 2025 10:31am Abnormal weight gain acute 2024 9:39am Asthma acute April 15, 9:39am Bipolar 2 disorder acute April 15, 2025 9:39am BMI 50.0-59.9, adult acute 2024 9:39am Class 3 severe obesity with body mass index (BMI) of 50.0 to 59.9 in adult acute April 15 9:39am Degenerative lumbar disc acute April 15, 2025 9:39am Dietary surveillance and counseling acute April 15 9:39am Exercise counseling acute 2024 9:39am Fatty liver disease, nonalcoholic acute April 15 9:39am History of cholecystectomy acute April 15, 2025 9:39am History of seizures acute 2024 9:39am Hypertension acute April 15, 2025 9:39am Iron deficiency anemia acute [facility] 2024 9:39am Major depressive disorder acute April 15, 2025 9:39am Migraine acute April 15, 2 025 9:39am Obstructive sleep apnea acute A ugust 2024 9:39am PCOS (polycystic ovarian syndrome) acute April 15 9:39am Prediabetes acute April 15, 2025 9:39am Vitamin B12 deficiency acute [place] 2024 9:39am [facility] Work Phone: 1(400) 897-754907-01-2025 Evaluation note* Diagnosis Onset Date Resolution Status Admit Date Degenerative lumbar disc acute February 17, 2025 10:53am Food insecurity acute February 17, 2025 10:53am Insulin resistance acute February 172024 10:53am Morbid obesity acute February 17, 2025 10:53am Prediabetes acute February 17 10:53am UTI (urinary tract infection) acute February 17, 2025 10:53am [facility] Work Phone: 1(228) 740-163803-19-2025 History of Present illness Narrative* Cici Lake LPN - 11/03/2024 3:20 PM EDT Reason for [...] Disorder of endocrine system 02/11/2023 Essential hypertension ([facility]/HCC) 02/11/2023 Herpes simplex of female genitalia 02/11/2023 Menorrhagia 02/11/2023 Morbid obesity (CMS/HCC) 02/11/2023 Pain in female genitalia on intercourse 02/11/2023 Polycystic ovaries 02/11/2023 Secondary amenorrhea 02/11/2023 Anemia 02/11/2023 Hematuria, microscopic 06/03/2018 Recurrent urinary tract infection 06/03/2018 Neuropathy 05/31/2024 Carpal tunnel syndrome of right wrist 05/31/2024 Paresthesia of skin 05/31/2024 Seizure disorder ([facility]/HCC) 05/31/2024 Bipolar affective disorder ([facility]) 05/31/2024 Resolved Ambulatory Problems Diagnosis Date Noted No Resolved Ambulatory Problems Past Medical History: Diagnosis Date Abnormal Pap smear of cervix Abnormal uterine bleeding (AUB) ADHD (attention deficit hyperactivity disorder) ([facility]) Anxiety Asthma ([facility]) Benign essential HTN ([facility]) Bipolar 2 disorder ([facility]) Chronic cystitis Coitus painful for female Depression ([facility]/HCC) Dysthymia ([facility]/HCC) Genital herpes in women GERD (gastroesophageal reflux disease) Hormone imbalance Hypertension ([facility]/HCC) Hypertension ([facility]) Infertility, female Lumbar spondylolysis Memory changes Morbid obesity with BMI of 50.0-59.9, adult ([facility]) Pain of ovary PCOS (polycystic ovarian syndrome) Pre-diabetes Right ovarian cyst Seasonal affective disorder ([facility]) Sleep apnea Tachycardia HISTORY PAST MEDICAL HISTORY [...] nursing note reviewed. Exam conducted with a aviation operations specialist present. Vitals: Estimated body mass index is [...] of: Marko Oscar DO documented in this encounterSoutheast Missouri Community Treatment [id number] Evaluation note* Diagnosis Onset Date Resolution Status [...] and neck acute November 15, 2024 1:32pm [facility] Work Phone: 1([phone]) 888-442501-02-2025 [place] [address] Colonoscopy Procedure Report Signed Patient: Ashly Mehta MR#: [id number] : 1990 Acct:[id number] Age/Sex: 33 / F Adm Date: 5 Loc: Room: Type: [facility] Attending Dr: Hilaria Burgos DO Copies to: DO Manisha Chakraborty, ROSITA, TERESITA~ Colonoscopy Date/Provider 08/19/2024 Hilaria Burgos DO [...] slowly withdrawn with the findings as below. [place] bowel prep score was Fair. Findings: The [...] Burgos DO 08/19/24 0859 Signed By: 08/19/[address] [place], [place] 0535501-02-2025 [place] [address] EGD Procedure Note Signed Patient: Ashly Mehta MR#: [id number] : 1990 Acct:[id number] Age/Sex: 33 / F Adm Date: Loc: Room: Type: [facility] Attending Dr: Hilaria Burgos DO Copies to: DO Manisha Chakraborty, [employer]ESPERSON [employer], ORDER CONTROL CLERK BLOOD BANK~ Esophagogastroduodenoscopy Date/Provider Date: 08/19/2024 Hilaria Burgos DO [...] stable condition. Hilaria Burgos DO Documented By: Hilaira Burgos DO 08/19/24 0859 Signed By: 08/19/24 1009 [facility]01-02-2025 [place] [address] Gastroenterology H&P Signed Patient: Ashly Mehta MR#: [id number] : 1990 Acct:[id number] Age/Sex: 33 / F Adm Date: 5 Loc: Room: Type: [facility] Attending Dr: Hilaria Burgos DO Copies [...] DO 08/19/24 0859 Signed By: 08/19/24 0954 [facility]12-30-2024 History of Present illness Narrative * Consuelo Love, NEVIN - 08/16/2024 11:20 AM EST Images from [...] to get her a disease case manager soon. The patient reports difficulty [...] wrist extensors , wrist flexor , and plumbing assembler installer strength 5/5. LUE strength deltoid , biceps , triceps , wrist extensors , wrist flexor , and plumbing assembler installer strength 5/5. RLE strength iliopsoas, quadriceps, tibialis [...] reflex 2+. LLE knee reflex 2+. Coordination: Truljh-jt-jxgw testing normal. Rapid alternating movements are normal. Gait: Normal. Review and summary of old records: Neuropsychological evaluation at [facility] on 07/12/2024: Current neuropsychologicalevaluation demonstrates, [...] to establish care with a disease case manager, and I believe this is [...] NP [facility] documented in this encounterSoutheast Missouri Community Treatment [id number] Evaluation note* Diagnosis Onset Date Resolution Status Admit Date Dysuria acute August 09, 2024 3:46pm Excessive sweating acute Decemb er 2023 3:46pm Encounter for antibody response examination acute August 10:57am History of seizures acute Janua ry 2024 10:57am Hypertension acute August 24, 2024 10:57am Iron deficiency anemia acute Ja grahamary 2024 10:57am PCOS (polycystic ovarian syndrome) acute August 24 10:57am Severe obesity (BMI >= 40) acute August 24, 2024 10:57am Wellness examination acute Al tatianna 2024 10:57am Cellulitis acute August 28, 2024 1:44pm [facility] Work Phone: 1([phone]) 917-924911-25-2024 History of Present illness Narrative* Mario Mcknight, [...] any history of alcohol/substance abuse or smoking. [place] language [place]. Completed an associate's degree and was 24 credits shy of a bachelor's degree. Struggled academically and with attention. 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 Responsible for tending to the needs [...] design >16th %ile. Motor/Speed of Processing: Right-handed. Wireless Architect strength 24th %ile with right- hand, 62nd [...] Learning of a word list 31st %ile (4-0-84-13-13), delayed recall 16th %ile. Recognition discriminability 69th [...] of this individual. Please contact me with [employer] at [phone]. documented in this encounterSoutheast Missouri Community Treatment [id number] History of Present illness Narrative* Mario Mcknight, [...] any history of alcohol/substance abuse or smoking. [place] language [place]. Completed an associate's degree and was 24 credits shy of a bachelor's degree. Struggled academically and with attention. 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 Responsible for tending to the needs [...] of this individual. Please contact me with [employer] at [phone]. documented in this encounterSoutheast Missouri Community Treatment [id number] History of Present illness Narrative* Gwen Cox, [...] , wrist extensors , wrist flexor , plumbing assembler installer strength 5/5. LUE Strength deltoid , biceps , triceps , wrist extensors , wrist flexor , plumbing assembler installer strength 5/5. RLE Strength illopsoas, quadriceps, tibialis [...] reflex 2+ . Valiente's sign negative. Coordination: Dydzws-jk-btxo testing and rapid alternating movements are normal [...] plan, and return instructions documented in this encounterSoutheast Missouri Community Treatment [id number] Evaluation note* Diagnosis Onset Date Resolution Status [...] Excessive sweating acute Decemb er 2023 3:46pm [facility] Work Phone: 1([phone]) 853-166710-29-2024 Evaluation note* Diagnosis Onset Date Resolution Status [...] examination acute August 10:57am Wellness examination acute Al tatianna2024 10:57am Immunization status unknown deleted August 24, 2024 10:57am [facility] Work Phone: 1([phone]) 555-764510-29-2024 Evaluation note* Diagnosis Onset Date Resolution Status [...] Wellness examination acute Al tatianna 2024 10:57am [facility] Work Phone: 1([phone]) 785-610709-04-2024 Evaluation note* Diagnosis Onset Date Resolution Status [...] tract infection) acute June 21, 2024 11:13am [facility] Work Phone: 1([phone]) 623-884809-04-2024 Evaluation note* Diagnosis Onset Date Resolution Status Admit Date Aphasia acute April 21, 2024 2:29pm Apnea acute April 21, 2024 2:29pm Fatigue acute April 21, 2024 2:29pm History of seizures acute Septe mb2023 2:29pm Loud snoring acute April 2:29pm Memory loss acute April 2:29pm Migraine acute April 21, 2024 2:29pm Morbid obesity acute April 21, 2024 2:29pm Acute UTI acute June 15, 2024 9:22am Fatty liver disease, nonalcoholic acute June 21 11:13am Frequent UTI acute June 11:13am Obstructive sleep apnea acute N 2023 11:13am UTI (urinary tract infection) acute June 21, 2024 11:13am Dysuria acute June 25, 2024 9:05am [facility] Work Phone: 1([phone]) 821-601201-02-2024 Evaluation note* Encounter Date Diagnosis Assessment Notes Treatment Notes Treatment Clinical Notes Aug, Obesity, unspecified classification, unspecified obesity type, unspecified whether serious comorbidity present (ICD-10 - E66.9) Aug, BMI 50.0-59.9, adult (ICD-10 - Z68.43) Aug, Other Summary of Visi t: (A) Importnace of planning to simplify meals (B) Deconstructed Meals (C) Sharing meal ideas (D) Plate method for meal planning ; [employer] Other 12-27-2023 Evaluation note* Encounter Date Diagnosis [...] You have been given relevant education handouts. [facility] Other 11-28-2023 Evaluation note* Encounter Date Diagnosis [...] voice recognition software. Please excuse errors in master technician. Jun, Dietary surveillance and counseling (ICD-10 - [...] metformin 1000 mg total daily, managed by REFORMATORY ATTENDANT Jun, Asthma (ICD-10 - J45.909) Jun, Migraine (ICD-10 - G43.909) Jun, Primary hypertension (ICD-10 - I10) Currently on pharmacotherapy Potential for overtreatment given lightheadedness Jun, Other An additional 9 minutes was spent counseling the patient on behavior modification including proper nutrition and physical activity. [facility] Other 11-20-2023 Evaluation note* Encounter Date Diagnosis [...] until you feel better. You may take otve-mle-upxtycl Imodium for diarrhea as needed. Avoid dairy foods as well as greasy fried foods. Follow-up with your physician if no improvement in 2 to 3 days. May return to work on Jun, Diarrhea, unspecified type (ICD-10 - R19.7) Diarrhea: adult home care material was printed [facility] Other 11-12-2023 Evaluation note* Encounter Date Diagnosis [...] to 3-day Jun, Bronchitis (ICD-10 - J40) [facility] Other 10-25-2023 Evaluation note* Encounter Date Diagnosis Assessment Notes Treatment Notes Treatment Clinical Notes May, Degenerative lumbar disc (ICD-10 - M51.36) L4-5 Pt would like a referral to pain management regarding her chronic back pain. Her last x-ray of the lumbar spine was completed 10/2022 at [facility]--reviewed and in scanned documents. Referral placed. May, [...] disorder (ICD-10 - F31.81) Referral placed to [facility] for medication mangement. [facility] Other 09-19-2023 Evaluation note* Encounter Date Diagnosis Assessment Notes Treatment Notes Treatment Clinical Notes Apr, Exposure to head lice (ICD-10 - Z20.7) Discussed with patient exam is without any signs of current lice infection. May return to work tomorrow. Patient completed next treatment yesterday. Patient verbalized understanding. [facility] Other 09-14-2023 Evaluation note* Encounter Date Diagnosis Assessment Notes Treatment Notes Treatment Clinical Notes Apr, Primary hypertension (ICD-10 - I10) [facility] Other 09-13-2023 Evaluation note* Encounter Date Diagnosis [...] (ICD-10 - R73.01) Will obtain records from [facility] for most recent labs. Patient [...] Low back pain, unspecified (ICD-10 - M54.50) [facility] Other 09-12-2023 Evaluation note* Encounter Date Diagnosis [...] 2) Aim for < 45 g carb/meal [facility] Other 08-08-2023 Evaluation note* Encounter Date Diagnosis [...] voice recognition software. Please excuse errors in master technician. Mar, Dietary surveillance and counseling (ICD-10 - [...] as sweet tea, replace ice cream with [place] yogurt, use protein shake in the a.m. [...] with the patient, and documenting clinical information. [employer] Other 06-27-2023 Evaluation note* Encounter Date Diagnosis [...] 7 days, sooner if significantly worsening symptoms. [employer] Other 11-26-2022 Evaluation note* Encounter Date Diagnosis [...] 3 days. Off work today and tomorrow [employer] Other 11-19-2021 Evaluation note* Encounter Date Diagnosis [...] Patient care instructions given in writting by [facility] Care At Home document. [employer] Other 10-31-2021 Evaluation note* Encounter Date Diagnosis [...] Patient care instructions given in writting by [facility] Care At Home document. [facility] [employer] Other 10-14-2021 Evaluation note* Encounter Date Diagnosis Assessment Notes Treatment Notes Treatment Clinical Notes May, Dysuria (ICD-10 - R30.0) May, Urinary tract infection, site not specified (ICD-10 - N39.0) May, Hematuria, unspecified (ICD-10 - R31.9) [email or web address] [employer] Other evaluation noteNo InformationNortGe[facility] [employer] Other evaluation noteNo assessment information available [facility] Work Phone: evaluation note* Diagnosis Onset Date Resolution Status Dietary surveillance and counseling acute Exercise counseling acute Food insecurity acute PCOS (polycystic ovarian syndrome) acute Prediabetes acute Severe obesity (BMI >= 40) a [facility] Work Phone: evaluation note* Diagnosis Onset Date Resolution Status Dietary surveillance and counseling acute Exercise counseling acute Food insecurity acute PCOS (polycystic ovarian syndrome) acute Prediabetes acute Severe obesity (BMI >= 40) a cute Lightheadedness acute Menorrhagia acute Palpitations acute [facility] Work Phone: evaluation note* Diagnosis Onset Date Resolution Status Dietary surveillance and counseling acute Exercise counseling acute Food insecurity acute PCOS (polycystic ovarian syndrome) acute Prediabetes acute Severe obesity (BMI >= 40) a cute Lightheadedness acute Menorrhagia acute Palpitations acute Dietary surveillance and counseling acute Exercise counseling acute Severe obesity (BMI >= 40) a [facility] Work Phone: evaluation note* Diagnosis Onset Date Resolution Status Lightheadedness acute Menorrhagia acute Palpitations acute Dietary surveillance and counseling acute Exercise counseling acute Severe obesity (BMI >= 40) a [facility] Work Phone: evaluation note* Diagnosis Onset Date Resolution Status Aphasia acute History of seizures acute Memory loss acute Migraine acute [facility] Work Phone: evaluation note* Diagnosis Onset Date Resolution Status Aphasia acute Apnea acute Fatigue acute History of seizures acute Loud snoring acute Memory loss acute Migraine acute Morbid obesity acute Acute UTI acute [facility] Work Phone: Evaluation note* Diagnosis Onset Date Resolution Status Aphasia acute Apnea acute Fatigue acute History of seizures acute Loud snoring acute Memory loss acute Migraine acute Morbid obesity acute Acute UTI acute Fatty liver disease, nonalcoholic acute Frequent UTI acute UTI (urinary tract infection) acute [facility] Work Phone: Evaluation note* Diagnosis [...] physical note Author Hilaria Burgos [facility] Note Date/Time August 19, 2024 9: 54am [facility] [address] [place] [address] Gastroenterology H&P Signed Patient: Ashly Mehta MR#: [id number] : 1990 Acct:[id number] Age/Sex: 33 / F Adm Date: 5 Loc: Room: Type: [facility] Attending Dr: Hilaria Burgos DO Copies [...] <Electronically signed by Hilaria Burgos DO> 08/19/24 4021 [facility] Work Phone: History general Narrative - Reported* Type Description [...] History Hospitalized for blood l oss 2010 [employer] Other history general Narrative - Reported* Type [...] History Hospitalized for blood l oss 2010 [facility] Other history general Narrative - Reported* Type [...] History Hospitalized for blood l oss 2010 [facility] Other history general Narrative - Reported* Type [...] History Hospitalized for blood l oss 2010 [facility] Other history general Narrative - Reported* Type [...] History Hospitalized for blood l oss 2010 [facility] Other history general Narrative - Reported* Type [...] History Hospitalized for blood l oss 2010 [facility] Other Hisukyn general Narrative - Reported* Type Description Date [...] History Hospitalized for blood l oss 2010 [facility] Other Hospital Discharge instructionsAmbulatory Orders* Referral to Gastroenterology Time Frame: 06/21/24, Location: None Selected * Referral to Urology Time Frame: 06/21/24, Location: None Selected [facility] Work Phone: Hospital Discharge instructionsAmbulatory Orders* Disability Placard Time Frame: 02/17/25, Location: Determined By Patient * Referral to Weight Management Time Frame: 02/17/25, Location: None Selected [facility] Work Phone: Reason for referral (narrative)* Reason *FU 06/20 would li ke a referral to pscyiatrist -- was recently diagnosed with bipolar and would like medication management. Diagnosis 1 Bipolar 2 disorder ( F31.81) Referral Organization [facility] sharan Referring Provider First Name Manisha Referring Provider Last Name Denyrbacher Referring Provider Specialty Nurse Luist ernesto Referred Organization [facility] Enedelia Referred Address [address],[place], [place],[address] Referred Provider Specialty Psychiatry Referral Priority Routine General Notes Paola Henderson 01:25:30 PM >received today, not sure if [facility] does medication management, waiting for notes to be locked Paola Henderson 06/13/2023 10:34:39 AM >notes locked, referral faxed Clinical Notes p: [phone] f: [id number] [place] [facility] Reason *FU 06/20 would [place] a referral to pain management for other options for pain control for back pain Diagnosis 1 Degenerative lumbar disc (M51.36) Referral Organization [facility] sharan Referring Provider First Name Manisha Referring Provider Last Name Tari Referring Provider Specialty Nurse Noble orozco Referred Organization [facility] Referred Provider Yrn Parsons Referred Address [address], [place],[address] Referred Provider Specialty Pain Medicin e Referral Priority Routine General Notes Paola Henderson 01:21:23 PM >received today, waiting for notes to be locked Paola Henderson 06/13/2023 10:25:26 AM >notes locked, referral faxed Clinical Notes f: [phone] [employer] Other [employer] for referral (narrative)No reason for referral information available[facility] Work Phone: Rehlkq for visit Narrative* Consultation (Routine) - Closed Specialty Diagnoses / Procedures Referred By Ela noriega Referred To Contact Neurology Diagnoses Aphasia Personal history of other specified conditions Other amnesia Procedures TX OFFICE/OUTPATIENT [facility] 30 MINUTES Manisha Marc, JAVA TECH [address] [place] [address] [place] [address] Phone: tel: fax: Sugey Dinero MD [address] [place] [address] Phone: tel: fax: Referral ID Status Reason Start Date Expiration Date V isits Requested Visits Authorized [id number] Closed Consult and Treat 05/28/2024 11/24/2024 1 1 [facility] HealthcareReason for visit Narrative* Consultation (Routine) - Closed Specialty Diagnoses / Procedures Referred By Contac t Referred To Contact Psychology Diagnoses Cognitive impairment Procedures TX OFFICE/OUTPATIENT NEW HIGH MDM 60 MINUTES Gwen Cox DO [address] [place] [address] Phone: tel: fax: Mario Mcknight, PhD [address] [place] [phone] Phone: tel: fax: Referral ID Status Reason Start Date Expiration Date V isits Requested Visits Authorized [id number] Closed Specialty Services Required 06/23/2024 12/20/2024 1 1 [facility] Healthcare Summary Purpose Family History No Family [...] D deficiency March 22, 2025 7: 59am Chief Complaint Admit Date UTI Symptoms/Discuss Health Lesley 3rd, 20 25 10:53am R35.0 February 17, 2025 11:14 am Mouth pain February 22, 2025 4:45p m Spinal stenosis, lumbar region with neur ogenic cla March 03, 2025 10:06am Lice check March 11, 2025 12:0 7pm BH March 12, 2025 10:0 0am Discuss heart health March 22, 2025 7: 59am poss pink eye March 29, 2025 10 :31am Chief Complaint Admit Date UTI Symptoms/Discuss Health February 17 10:53am R35.0 February 17, 2025 11:14 am Mouth pain February 22, 2025 4:45p m Spinal stenosis, lumbar region with neur ogenic cla March 03, 2025 10:06am Lice check March 11, 2025 12:0 7pm Discuss heart health March 22, 2025 7: 59am BH March 26, 2025 10: 00am poss pink eye March 29, 2025 10 :31am Rohrbacher-Beto (QDone) April 15, 2025 9:39am Reason for Visit Admit Date Communication deficit [...] D deficiency March 22, 2025 7: 59am Bacterial conjunctivitis March 29 10:31am Abnormal weight gain April 15, 2025 9 :39am Asthma April 15, 2025 9: 39am Bipolar 2 disorder April 15, 2025 9: 39am BMI 50.0-59.9, adult April 15, 2025 9 :39am Class 3 severe obesity with body mass index (BMI) of 50.0 to 59.9 in adult April 15, 2025 9:39am Degenerative lumbar disc April 15 9:39am Dietary surveillance and counseling Augu st 2024 9:39am Exercise counseling April 15, 2025 9: 39am Fatty liver disease, nonalcoholic April 15, 2025 9:39am History of cholecystectomy April 15, 2025 9:39am History of seizures April 15, 2025 9: 39am Hypertension April 15, 2025 9: 39am Iron deficiency anemia April 15, 2025 9:39am Major depressive disorder April 15, 025 9:39am Migraine April 15, 2025 9: 39am Obstructive sleep apnea April 15 9:39am PCOS (polycystic ovarian syndrome) Augus t 2024 9:39am Prediabetes April 15, 2025 9: 39am Vitamin B12 deficiency April 15, 2025 9:39am Chief Complaint Admit Date UTI Symptoms/Discuss Health February 17 10:53am R35.0 February 17, 2025 11:14 am Mouth pain February 22, 2025 4:45p m Spinal stenosis, lumbar region with neur ogenic cla March 03, 2025 10:06am Lice check March 11, 2025 12:0 7pm Discuss heart health March 22, 2025 7: 59am poss pink eye March 29, 2025 10 :31am BH April 07, 2025 10 :00am Rohrbacher-Beto (QDone) April 15, 2025 9:39am Amb Documentation April 15, 2025 12 :13pm upset stomach, nausea April 21 4:18pm Additional Source Comments INFORMATION SOURCE (unrecogn ized section and content) DATE CREATED AUTHOR 08/27/2021 [facility] DATE CREATED AUTHOR AUTHOR'S ORGANIZ ATION 01/01/2023 [facility] DATE CREATED AUTHOR AUTHOR'S ORGANIZ ATION 06/25/2024 [facility] DATE CREATED AUTHOR AUTHOR'S ORGANIZ ATION 12/02/2024 [facility] EPIC DATE CREATED AUTHOR AUTHOR'S ORGANIZ ATION 02/05/2025 [facility] DATE CREATED AUTHOR AUTHOR'S ORGANIZ ATION 03/19/2025 [facility] DATE CREATED AUTHOR AUTHOR'S ORGANIZ ATION 05/11/2025 [facility] REASON FOR VISIT (unrecogniz ed section and content) Reason Comments Memory difficulty Reason Comments Well Women Visit STI Screening Care Teams (unrecognized sec tion and content) Team Status: Active Member Role Status Dates Manisha Marc APRN JAVA TECH-C Primary Care Provider Active Team Status: Active Member Role Status Dates Manisha Marc APRN JAVA TECH-C Primary Care Provider, Attending Provider Active Team Status: Inactive Member Role Status Dates Manisha Marc APRN JAVA TECH-C Primary Care Provider Active Celio Mullins DO Attending Provider Active Team Status: Inactive Member Role Status Dates Manisha Marc APRN JAVA TECH-C Primary Care Provider Active Clinton Frazier MD Attending Provider Active Team Status: Inactive Member Role Status Dates Manisha Marc APRN JAVA TECH-C Primary Care Provider Active Start: July 032022 End: July 03, 2023 Celio Mullins DO Attending Provider Active St art: July 03, 2023 End: July 03, 2023 Team Status: Active Member Role Status Dates Manisha Marc APRN JAVA TECH-C Primary Care Provider Active Start: July 032022 Edward Gilmore MD Attending Provider Active Start: July 03, 2023 Team Status: Inactive Member Role Status Dates Michelle Ernandez NP-Damion Attending Provider Active S tart: July 07, 2023 End: July 07, 2023 Team Status: Inactive Member Role Status Dates Celio Mullins DO Attending Provider Active St art: July 15, 2023 End: July 15, 2023 Team Status: Inactive Member Role Status Dates Manisha Marc APRN JAVA TECH-C Primary Care Provider Active Start: July End: July 19, 2023 Clinton Frazier MD Attending Provider Active Start: July 19, 2023 End: July 19, 2023 Team Status: Inactive Member Role Status Dates Manisha Rohrbacher , SALESPERSON [employer] JAVA TECH-C Attending Provider Act rafal Start: August 13, 2023 End: August 13, 2023 Team Status: Inactive Member Role Status Dates Nely Cage [facility] Attending Provider Active Start: August 19, 2023 End: August 19, 2023 Team Status: Active Member Role Status Dates Manisha Marc SALESPERSON [employer] JAVA TECH-C Primary Care Provider, Attending Provider Active Start: August 19, 2023 Team Status: Inactive Member Role Status Dates Manisha Marc APRN JAVA TECH-C Attending Provider Act rafal Start: September 03, 2023 End: September 03, 2023 Team Status: Inactive Member Role Status Dates Manisha Marc APRN JAVA TECH-C Primary Care Provider Active Start: October 012023 End: October 01, 2023 Celio Mullins DO Attending Provider Active St art: October 01, 2023 End: October 01, 2023 Team Status: Active Member Role Status Dates Manisha Marc APRN JAVA TECH-C Primary Care Provider Active Start: August 142022 Edward Gilmore MD Attending Provider Active Start: August 14, 2023 Team Status: Active Member Role Status Dates Manisha Marc APRN JAVA TECH-C Primary Care Provider, Attending Provider Active Start: October 06, 2023 Team Status: Inactive Member Role Status Dates Manisha Marc SALESPERSON [employer] JAVA TECH-C Primary Care Provider Active Start: October 082023 End: October 08, 2023 Gwen Cox DO Attending Provider Active Start: October 08, 2023 End: October 08, 2023 Team Status: Active Member Role Status Dates Manisha Marc APRN JAVA TECH-C Primary Care Provider, Attending Provider Active Start: October 30, 2023 Team Status: Inactive Member Role Status Dates Manisha Marc APRN JAVA TECH-C Primary Care Provider, Attending Provider Active Start: November 03, 2023 End: November 03, 2023 Team Status: Active Member Role Status Dates Manisha Marc APRN JAVA TECH-C Primary Care Provider Active Start: August Edward Gilmore MD Attending Provider Active Start: September 10, 2023 Team Status: Inactive Member Role Status Dates Manisha Marc APRN JAVA TECH-C Primary Care Provider Active Start: November 26, 2023 End: November 26, 2023 Celio Mullins DO Attending Provider Active St art: November 26, 2023 End: November 26, 2023 Team Status: Active Member Role Status Dates Manisha Marc APRN JAVA TECH-C Primary Care Provider Active Start: January 01, 2024 Edward Gilmore MD Attending Provider Active Start: January 01, 2024 Team Status: Active Member Role Status Dates Manisha Marc APRN JAVA TECH-C Primary Care Provider Active Start: April 03, 2024 Edward Gilmore MD Attending Provider Active Start: April 03, 2024 Team Status: Active Member Role Status Dates Manisha Marc APRN JAVA TECH-C Primary Care Provider Active Start: April 12, 2024 Jaymie Griffin DO Attending Provider Active Start: April 12, 2024 Team Status: Inactive Member Role Status Dates Manisha Marc APRN JAVA TECH-C Primary Care Provider, Attending Provider Active Start: April 21, 2024 End: April 21, 2024 Team Status: Active Member Role Status Dates Manisha Marc APRN JAVA TECH-C Primary Care Provider Active Start: April 12, 2024 Agusto Rojas DO Attending Provider Active Sta rt: April 12, 2024 Team Status: Active Member Role Status Dates Manisha Marc APRN JAVA TECH-C Primary Care Provider Active Start: April 15, 2024 Agusto Rojas DO Attending Provider Active Sta rt: April 15, 2024 Team Status: Active Member Role Status Dates Manisha Marc APRN JAVA TECH-C Primary Care Provider Active Start: April 192023 Edward Gilmore MD Attending Provider Active Start: May 13, 2024 Team Status: Active Member Role Status Dates Manisha Marc APRN JAVA TECH-C Primary Care Provider, Attending Provider Active Start: June 07, 2024 Team Status: Inactive Member Role Status Dates Manisha Marc SALESPERSON [employer] JAVA TECH-C Primary Care Provider Active Start: May [...] Member Role Status Dates Manisha Marc APRN JAVA TECH-C Primary Care Provider, Attending Provider Active Start: June 21, 2024 End: June 21, 2024 Inside Sales Relationship Specialty Start Date End Date Thaddeus Rod MD [address] [place] [address] PCP - General Family Medicine 04/24/23 Inside Sales Relationship Specialty Start Date End Date Thaddeus Rod MD [address] [place] [address] PCP - General Family Medicine 04/24/23 Inside Sales Relationship Specialty Start Date End Date Thaddeus Rod MD [address] [place] [address] PCP - General Family Medicine 04/24/23 Team Status: Inactive Member Role Status Dates Manisha Marc APRN JAVA TECH-C Primary Care Provider, Attending Provider Active Start: June 25, 2024 End: June 25, 2024 Team Status: Inactive Member Role Status Dates Manisha Marc APRN JAVA TECHAmyC Attending Provider Act rafal Start: June 25, 2024 End: June 25, 2024 Inside Sales Relationship Specialty Start Date End Date Thaddeus Rod MD [address] [place] [address] PCP - General Family Medicine 04/24/23 Inside Sales Relationship Specialty Start Date End Date Thaddeus Rod MD [address] [place] [address] PCP - General Family Medicine 04/24/23 Inside Sales Relationship Specialty Start Date End Date Thaddeus Rod MD [address] [place] [address] PCP - General Family Medicine 04/24/23 Team Status: Active Member Role Status Dates Tiffanie Villalobos MD Attending Provider Active St art: June 29, 2024 Team Status: Active Member Role Status Dates Manisha Marc APRN JAVA TECH-C Primary Care Provider Active Start: August 032023 Edward Gilmore MD Attending Provider Active Start: August 03, 2024 Team Status: Inactive Member Role Status Dates Manisha Marc APRN JAVA TECH-C Primary Care Provider, Attending Provider Active Start: August 09, 2024 End: August 09, 2024 Team Status: Inactive Member Role Status Dates Manisha Marc APRN JAVA TECH-C Attending Provider Active Start: July End: August 09, 2024 PHYSICIAN NO FAMILY Primary Care Provider Active Start: August 09, 2024 End: August 09, 2024 Team Status: Inactive Member Role Status Dates Hilaria Burgos DO Attending Provider Active St art: August 19, 2024 End: August 19, 2024 Manisha Marc APRN JAVA TECH-C Primary Care Provider Active Start: August 19, 2024 End: August 19, 2024 Team Status: Active Member Role Status Dates Hilaria Burgos DO Attending Provider, Other Provider Active Start: August 19, 2024 Manisha Marc APRN JAVA TECH-C Primary Care Provider Active Start: August Team Status: Inactive Member Role Status Dates Manisha Marc APRN JAVA TECH-C Primary Care Provider, Attending Provider Active Start: August 24, 2024 End: August 24, 2024 Team Status: Active Member Role Status Dates Manisha Marc APRN JAVA TECH-C Primary Care Provider Active Start: August 24, 2024 Edward Gilmore MD Attending Provider Active Start: August 24, 2024 Team Status: Inactive Member Role Status Dates Manisha Marc APRN JAVA TECH-C Primary Care Provider Active Start: August End: August 28, 2024 Viry Holder APRN Attending Provider Active S tart: August 28, 2024 End: August 28, 2024 Team Status: Active Member Role Status Dates Manisha Marc APRN JAVA TECH-C Primary Care Provider Active Start: August Edward Gilmore MD Attending Provider Active Start: August 27, 2024 Team Status: Inactive Member Role Status Dates Manisha Marc APRN JAVA TECH-C Primary Care Provider Active Start: September 272024 End: September 27, 2024 Viry Holder APRN Attending Provider Active S tart: September 27, 2024 End: September 27, 2024 Inside Sales Relationship Specialty Start Date End Date Thaddeus Rod MD [address] [place] [address] PCP - General Family Medicine 04/24/23 Team Status: Active Member Role Status Dates Manisha Marc APRN JAVA TECH-C Primary Care Provider Active Start: October 122024 Tiffanie Villalobos MD Attending Provider Active St art: October 12, 2024 Team Status: Active Member Role Status Dates Manisha Marc APRN JAVA TECH-C Primary Care Provider Active Start: November 03, 2024 Marko Oscar DO Attending Provider Active Start : November 03, 2024 Team Status: Active Member Role Status Dates Manisha Marc APRN JAVA TECH-C Primary Care Provider Active Start: November 09, 2024 Edward Gilmore MD Attending Provider Active Start: November 09, 2024 Team Status: Inactive Member Role Status Dates Manisha Marc APRN JAVA TECH-C Primary Care Provider, Attending Provider Active Start: November 15, 2024 End: November 15, 2024 Team Status: Active Member Role Status Dates Manisha Marc APRN JAVA TECH-C Primary Care Provider Active Start: December 28, 2024 Tiffanie Villalobos MD Attending Provider Active St art: December 28, 2024 Team Status: Active Member Role Status Dates Manisha Marc APRN JAVA TECH-C Primary Care Provider Active Start: February 08, 2025 Edward Gilmore MD Attending Provider Active Start: February 08, 2025 Team Status: Inactive Member Role Status Dates Manisha Marc APRN JAVA TECH-C Primary Care Provider Active Start: February 17, 2025 End: February 17, 2025 Manisha Marc APRN JAVA TECH-C Attending Provider Act rafal Start: February 17, 2025 End: February 17, 2025 Team Status: Inactive Member Role Status Dates Manisha Marc APRN JAVA TECH-C Attending Provider Act rafal Start: February 17, 2025 End: February 17, 2025 Team Status: Active Member Role Status Dates Manisha Marc APRN JAVA TECH-C Primary Care Provider Active Start: February 16, 2025 Edward Gilmore MD Attending Provider Active Start: February 16, 2025 Team Status: Inactive Member Role Status Dates Manisha Marc APRN JAVA TECH-C Primary Care Provider Active Start: February 22, 2025 End: February 22, 2025 Sakina Real APRN Attending Provider Active Start: February 22, 2025 End: February 22, 2025 Team Status: Active Member Role Status Dates Manisha Marc APRN JAVA TECH-C Primary Care Provider Active Start: February 22, 2025 Edward Gilmore MD Attending Provider Active Start: February 22, 2025 Team Status: Inactive Member Role Status Dates Manisha Marc APRN JAVA TECH-C Primary Care Provider Active Start: March 03, 2025 End: March 03, 2025 Syed Leonard MD Attending Provider Active Star t: March 03, 2025 End: March 03, 2025 Team Status: Active Member Role Status Dates Manisha Marc APRN JAVA TECH-C Primary Care Provider Active Start: March 02, 2025 Edward Gilmore MD Attending Provider Active Start: March 02, 2025 Team Status: Inactive Member Role Status Dates Manisha Marc APRN JAVA TECH-C Primary Care Provider Active Start: March 11, 2025 End: March 11, 2025 Casandra Hassan APRN Attending Provider Active Start: March 11, 2025 End: March 11, 2025 Team Status: Inactive Member Role Status Dates Manisha Marc APRN JAVA TECH-C Primary Care Provider Active Start: March 22, 2025 End: March 22, 2025 Manisha Marc APRN JAVA TECH-C Attending Provider Act rafal Start: March 22, 2025 End: March 22, 2025 Team Status: Active Member Role Status Dates Manisha Marc APRN JAVA TECH-C Primary Care Provider Active Start: March 12, 2025 Edward Gilmore MD Attending Provider Active Start: March 12, 2025 Team Status: Inactive Member Role Status Dates Manisha Marc APRN JAVA TECH-C Primary Care Provider Active Start: March 29, 2025 End: March 29, 2025 Casandra Hassan APRN Attending Provider Active Start: March 29, 2025 End: March 29, 2025 Team Status: Active Member Role Status Dates Manisha Marc APRN JAVA TECH-C Primary Care Provider Active Start: March 26, 2025 Edward Gilmore MD Attending Provider Active Start: March 26, 2025 Team Status: Inactive Member Role Status Dates Manisha Sellers DNP Attending Provider Active S tart: April 15, 2025 End: April 15, 2025 Manisha Marc APRN JAVA TECH-[employer] Primary Care Provider Active Start: April 15, 2025 End: April 15, 2025 Team Status: Active Member Role Status Dates Manisha Marc APRN JAVA TE[employer] Primary Care Provider Active Start: April 07, 2025 Edward Gilmore MD Attending Provider Active Start: April 07, 2025 Team Status: Active Member Role Status Dates Manisha Marc APRN [employer]AVA TE[employer] Primary Care Provider Active Start: April 15, 2025 Aidan Billings MD Attending Provider Activ e Start: April 15, 2025 Team Status: Inactive Member Role Status Dates Manisha Marc APRN JAVA TECH-C Primary Care Provider Active Start: April [id number] End: April 21, 2025 Em Garcia APRN [employer]AVA TECH-C Attending Provider Active Start: April End: April 21, 2025 Goals (unrecognized section and content) Goals [...] BE BASED ON THE PRIMARY CLINICAL RECORDS. [facility] provides no warranty or guarantee of the accuracy or completeness of information in this document.
--- NOTE | 2025-05-12 11:03 | PM.CN ---
Consult Note: HPI Data of Consult Patient: known to practice within the last 3 years Consult date: 03/17/25 Requesting Physician: Vera Blanco NP Primary Care Provider: CHRIS LOPEZ Consult Narrative Reason for consult: f/u Narrative: Ashly Mehta a pleasant 34 year old female presents for evaluation and management of low back pain. Patient has noticed this low back pain since a fall at work in 2018 where she injured her ankle and had to wear a boot, noticed the pain started after she stopped wearing the boot. Today rating pain 5/10 in low back and RLE. Pain increased with pushing, pulling, standing, walking, activity, decreased with sleep sitting and lying down. Has tried chiropractor care without success, currently swilling at the [facility]. failed to benefit from tylenol, motrin, celebrex, meloxicam, gabapentin, flexeril, methocarbamol, and baclofen. pt failed to benefit from 6 weeks of PT for low back pain, cannot tolerate HEP. pt recently underwent lumbar MRI as noted below. was evaluated by NS per pt request and deemed nonsurgical, weight loss was recommended. cc:: CC: Vera Blanco NP [facility] Medical History Herpes genitalia ?A60.00 - Herpesviral infection of urogenital system, unspecified (ICD-10) Back pain ?M54.9 - Dorsalgia, unspecified (ICD-10) Arthritis ?M19.90 - Unspecified osteoarthritis, unspecified site (ICD-10) Anemia ?D64.9 - Anemia, unspecified (ICD-10) Depression ?F32.A - Depression, unspecified (ICD-10) Anxiety ?F41.9 - Anxiety disorder, unspecified (ICD-10) COVID-19 ?U07.1 - COVID-19 (ICD-10) Asthma ?J45.909 - Unspecified asthma, uncomplicated (ICD-10) Seizures ?R56.9 - Unspecified convulsions (ICD-10) GERD (gastroesophageal reflux disease) ?K21.9 - Gastro-esophageal reflux disease without esophagitis (ICD-10) Sleep apnea ?G47.30 - Sleep apnea, unspecified (ICD-10) Palpitations ?R00.2 - Palpitations (ICD-10) Prediabetes ?R73.03 - Prediabetes (ICD-10) Hypertension ?I10 - Essential (primary) hypertension (ICD-10) PCOS (polycystic ovarian syndrome) ?E28.2 - Polycystic ovarian syndrome (ICD-10) Abnormal uterine bleeding (AUB) ?N93.9 - Abnormal uterine and vaginal bleeding, unspecified (ICD-10) Menorrhagia ?N92.0 - Excessive and frequent menstruation with regular cycle (ICD-10) Surgical History History of laparoscopy ?Z98.890 - Other specified postprocedural states (ICD-10) History of colposcopy ?Z98.890 - Other specified postprocedural states (ICD-10) History of wisdom tooth extraction ?K08.409 - Partial loss of teeth, unspecified cause, unspecified class (ICD-10) History of cholecystectomy ?Z90.49 - Acquired absence of other specified parts of digestive tract (ICD-10) Family History Other Family history of heart disease Family history of stroke Social History Within the past year, how often did you have a drink containing alcohol: monthly or less Smoking status: Never smoker 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 Highest level of school completed/degree received: Associate degree: occupational, technical, vocational program Little interest or pleasure in doing things: not at all Feeling down, depressed, or hopeless: not at all Meds Home Medications and Allergies Home Medications ?Medication ?Instructions ?Recorded ?Confirmed ?Type albuterol sulfate 90 mcg/actuation 2 inh inhalation Q6H PRN shortness 01/17/23 02/28/25 History aerosol inhaler (ProAir HFA) of breath or wheezing metformin 500 mg tablet 500 mg PO BID 01/17/23 02/28/25 History valacyclovir 1 gram tablet 1,000 mg PO BID 06/25/23 02/28/25 History lamotrigine 25 mg tablet (Lamictal) 25 mg PO Q12H 10/30/23 02/28/25 History duloxetine 60 mg capsule,delayed 120 mg PO .HS 04/14/24 02/28/25 History release lisinopril 10 mg tablet mg 04/14/24 History methenamine hippurate 1 gram tablet g 11/18/24 History multivitamin 1 tab PO DAILY 11/18/24 02/28/25 History pantoprazole 40 mg tablet,delayed mg PO 11/18/24 History release methocarbamol 500 mg tablet See Rx Instructions .Route 01/13/25 02/28/25 Rx .COMPLEX #120 tabs pregabalin 75 mg capsule (Lyrica) 75 mg PO TID #90 caps 03/17/25 Rx Allergies Allergy/AdvReac Type Severity Reaction Status Date / Time sulfamethoxazole (From Allergy Mild ulcer Verified 02/28/25 10:20 Bactrim) tongue trimethoprim (From Bactrim) Allergy Mild ulcer Verified 02/28/25 10:20 tongue amoxicillin Allergy Rash Verified 02/28/25 10:18 cefaclor Allergy Rash Verified 02/28/25 10:18 erythromycin base Allergy Hives Verified 02/28/25 10:18 Exam Constitutional Documenting provider has reviewed patient's vital signs: yes Common normals: no apparent distress, oriented x3, healthy appearing, alert and well nourished General appearance: cooperative Nutritional appearance: obese HENMT Common normals: normocephalic, hearing grossly normal bilaterally and moist oral mucous membranes Head and scalp: normocephalic Eye Common normals: PERRL Pupil: PERRL Neck & C-Spine Common normals: full ROM General: normal visual inspection Cervical spine: cervical ROM normal Chest Common normals: inspection of chest normal Respiratory Common normals: normal respiratory effort, no retractions and no use of accessory muscles Back & Pelvis Lumbar spine/lower back: ROM limited, pain with ROM, lumbar spinal tenderness and straight leg raise positive right Other: right positive marissa(patricks), gaenslens, thigh thrust, compression test decreased sensation right L4,5,S1 strength 4/5 in RLE and 5/5 in LLE Extremity Common normals: normal to inspection and full ROM Other: tenderness over bilateral GTB Neuro Common normals: oriented x3 Sensorium/orientation: alert Motor exam: no movement abnormalities noted Psych Common normals: mental status grossly normal, thought process normal, cooperative, affect normal, speech normal and activity/motor behavior normal Speech: normal speech Thought process: normal thought process Results Imaging Lumbar MRI: Attestation: I have reviewed the pertinent imaging results. Radiologist's impression: Lower thoracic level: Unremarkable L1-2 :Unremarkable L2-3: Mild diffuse disc bulge. Mild central canal stenosis. Posterior element hypertrophy. Mild bilateral neural foraminal narrowing L3-4: Mild diffuse disc bulge. No central canal stenosis. Posterior element hypertrophy. Mild bilateral neural foraminal narrowing L4-5: Mild diffuse disc bulge. Mild central canal stenosis. Posterior element hypertrophy. Mild bilateral neural foraminal narrowing. L5-S1: Unremarkable MR/MR lumbar spine wo con IMPRESSION: Multilevel discovertebral degenerative changes. Diffuse decreased T1 and T2 signal changes of the bone marrow. infiltrative changes/marrow fatty reconversion changes should be considered. Malignancy should be excluded. May represent lymphoproliferative disorder. Additional Findings Additional findings: If on a controlled substance or opioids, I have checked an [place] report on this patient and there are no aberrancies noted in the prescribing history.??If on a controlled substance or opioid a drug screen was completed and reviewed within the last year, and if there has not been a drug screen completed we ordered one today to monitor higher risk, state monitored pain medication use. As part of providing excellent, safe, comprehensive care, the following was completed at our patient's visit: 1. A medication reconciliation and review to ensure accurate knowledge of current/active medications, including asking our patients to inform us about any [id number] medications or herbal remedies/nutritional supplements/alternative remedies. 2. A review to specifically ensure our patients have had annual screening for screening for depression, screening for tobacco use, and screening for unhealthy alcohol use. For concerning screenings had a discussion with the patient, provided patient education, and recommended follow-up with primary care provider when appropriate. If patient noted with a risk of falling, they received education on strength, gait, and balance training to prevent future risk of falling. Portions of this note may have been carried over from the previous visit and updated as appropriate. Please note this office utilizes paper charting in addition to the electronic medical record. A list of current medications, vitals, and PMH is available there as the clinical staff outside of myself do not have access to [employer] charting during the clinic day operations. As part of providing quality comprehensive care the current medications, vitals, and PMH were reviewed in the paper chart. Assessment and Plan Assessment and Plan (1) Lumbar stenosis with neurogenic claudication: (2) Sacroiliitis: (3) Obesity: Assessment and Plan: upcoming consult with weight management (4) Lumbar spondylosis: (5) Lumbar degenerative disc disease: (6) Lumbar radiculopathy: (7) Myofascial pain syndrome: Plan The patient has had over 3 months of moderate to severe low back pain with functional impairment and inadequate response to conservative care including NSAIDS (unless there are contraindication such as concurrent blood thinners), multiple oral or topical pain medications, and home exercise program/physical therapy.? Patient has completed >6 weeks of guided home exercise program and/or formal physical therapy program without relief of their symptoms.? The Oswestry Disability Index was completed, and the patient scored a 42%.? The patient noted the following:?? moderate to severe pain impacting ADLs, sitting, standing, walking, sleeping, social life, and travel? continue pregabalin 75mg TID f/u with pcp regarding further weight loss options, insurance would not cover medications through the weight loss clinic continue tylenol and NSAIDs otc PRN continue HEP as tolerated, continue swimming f/u 4 months, sooner if needed
== END 2025-05-12 10:31 | disposition home or self-care (01) ==
LOC: PM 10:31
PROVIDERS: PCP Nurse Practitioner Family; Visit Provider Nurse Practitioner
DX: M48.062 Spinal stenosis, lumbar region with neurogenic claudication (principal); M46.1 Sacroiliitis, not elsewhere classified; E66.89 Other obesity not elsewhere classified; M47.816 Spondylosis without myelopathy or radiculopathy, lumbar region; M51.369 Other intervertebral disc degeneration, lumbar region without mention of lumbar back pain or lower extremity pain; M54.16 Radiculopathy, lumbar region; M79.18 Myalgia, other site
CPT/HCPCS: G0463

== ENCOUNTER 2025-06-03 11:18 | Outpatient (OUT) | payer OTHER, SELFPAY ==
--- OUTSIDE RECORDS SUMMARY | 2025-06-03 11:26 | XMS_ITS | CCD ---
Author Organization [facility] Care Team Providers Care Is Technician Name Role Phone BRENT KINNEY Referring Unavailable [...] Unavailable Celio Mullins Unavailable Manisha Marc Unavailable [phone] ROSITA Marc Primary Care Provider ROSITA Marc Attending Provider DO Celio Mullins Attending Provider [phone] Rohrbacher, PRESIDENT & CEO Manisha Primary Care Provider MD Clinton Frazier Attending Provider ROSITA Marc Attending Provider Diyar, PRESIDENT & CEOJosé Miguel ThaoManisha Primary Care Provider DO Celio Mullins Attending Provider [phone] MD Edward Gilmore Attending Provider MD Clinton Frazier Attending Provider Tari, ROSITA Thaonifer Primary Care Provider MD Edward Gilmore Attending Provider [phone] DO Gwen Cox Attending Provider ROSITA Marc Primary Care Provider MD Edward Gilmore Attending Provider ROSITA Marc Attending Provider DO Gwen Cox Attending Provider [phone] ROSITA Marc Primary Care Provider MD Edward Gilmore Attending Provider ROSITA Marc Primary Care Provider MD Edward Gilmore Attending Provider ROSITA Marc Primary Care Provider MD Edward Gilmore Attending Provider [phone] ROSITA Marc Primary Care Provider MD Edward [...] ilable Hilaria Burgos DO L Attending Provider [phone] Tari BECKER, Manisha Primary Care Provider Edward Gilmore MD Attending Provider [phone] Manisha Marc APRN Attending Provider Edward Gilmore MD Attending Provider Ly DOBrodiee L Attending Provider Manisha Marc APRN Primary Care Provider Edward Gilmore MD Attending Provider [phone] MELA ANDERSON Attending Unavailable GWEN COX Attending Unavailable MANISHA MARC Referring Unavailab MARIO Garcia Attending Unavailable GWEN COX Referring Unavailable CONSUELO LOVE Attending Unavailable MARKO OSCAR Attending Unavailable CONSUELO LOVE Attending Unavailable Manisha Marc APRN Primary Care Provider Wilfredo CROWLEY, Tiffanie Attending Provider Edward Gilmore MD Attending Provider Manisha Marc APRN Attending Provider Deirdre CROWLEY, Edward Attending Provider Sakina Real APRN Attending Provider Deirdre CROWLEY, Edward Attending Provider Syed Leonard MD Attending Provider Deirdre CROWLEY, Edward Attending Provider Casandra Hassan APRN Attending Provider Garret CROWLEY, Bud Denis Attending Unavailable Garret CROWLEY, Bud Denis Attending Unavailable Manisha Marc APRN Primary Care Provider Deirdre CROWLEY, Edward Attending Provider [phone] Deirdre CROWLEY, Edward Attending Provider Manisha Sellers DNP Attending Provider Deirdre CROWLEY, Edward Attending Provider Aidan Billings MD Attending Provider Em Garcia APRN Attending Provider Deirdre CROWLEY, Edward Attending Provider [phone] Manisha Marc APRN Primary Care Provider Manisha Marc APRN Attending Provider Deirdre CROWLEY, Edward Attending Provider [phone] Attending Provider Unavailab le DenyrbacheManisha ibrahim APRN Referring Provider Manpreet Rao MD Attending Provider Manisha Marc Admitting Unavailable Manisha Marc Attending Unavailable Edward Gilmore Admitting Unavailab le Edward Gilmore Attending Unavailab le Rohrbacher, Manisha Primary Care Unavailable Ly, Hilaria L Admitting Unavailable Ly, Hilaria L Attending Unavailable Rohrbacher, Manisha Primary Care Unavailable Manpreet Rao Consulting Unavailable [place], Viry Admitting Unavailable [place], Viry Attending Unavailable Rohrbacher, Manisha Primary Care Unavailable Casandra Hassan Admitting Unavailable Casandra Hassan Attending Unavailable Rohrbacher, Manisha Admitting Unavailable Rohrbacher, Manisha Attending Unavailable Rohrbacher, Manisha Admitting Unavailable NO FAMILY, PHYSICIAN Primary Care Unavailable Rohrbacher, Manisha Attending Unavailable Rohrbacher PRESIDENT & CEO, Manisha Primary Care Provider Edward Gilmore MD Attending Provider Allergies Allergy Classification Reported Allergen(s) Allergy Type Date of Onset Reaction(s) Facility (20 sources) Amoxicillin; Translations: [AMOXICILLIN] Drug Allergy 07-08-20 16 rash [facility] Repository (20 sources) Cefaclor; Translations: [CEFACLOR] Drug Allergy 04-14-20 15 [facility] Repository (20 sources) Erythromycin; Translations: [ERYTHROMYCIN] Drug Allergy 04-14-20 15 hivjune [facility] Repository (19 sources) Cefaclor; Translations: [Ceclor] Drug Allergy 04-17-20 15 [facility] Repository (20 sources) Erythromycin Drug Allergy 04-17-20 15 Unknown Reaction, [facility] Repository (20 sources) Cephalosporins (Antibiotic); Translations: [Cephalosporins] Allergy to substance 12-10-19 Unknown Reaction, Rash [facility] (2 sources) Lactulose Drug Allergy 02-12-20 Unknown Reaction [facility] (6 sources) Baclofen Drug Allergy 03-11-20 Unknown Reaction [facility] (5 sources) Sulfamethoxazole; Translations: [sulfamethoxazole] Drug Allergy 05-25-20 swollen tongue [facility] (5 sources) Trimethoprim; Translations: [trimethoprim] Drug Allergy 05-25-20 swollen tongue [facility] (1 source) Erythromycin Drug Allergy 05-13-20 [facility] Repository Medications Current Medications Medication Drug Class(es) Dates Sig (Normalized) Sig (Original) [id number] actuat albuterol 0.09 mg/actuat metered dose [...] Tablet Discontinued 5 MG PO Daily 30 30 0 March 05, 2020 12:00am December 07, 2021 10:45am Savanna Corrales Active betamethasone 0.5 mg/ml / clotrimazole [...] PO Twice daily March 03, 2025 10:29am Major depressive disorder Major depressive disorder, recurrent, moderate Complies with drug therapy Start: 11-26-2023 End: 03-03-2025 take 2 capsules by mouth once daily Duloxetine 60 mg capsule,delayed release(DR/EC) Discontinued 120 MG PO Daily 180 90 1 April 05, 2024 1:28pm March 03, 2025 10:31am Major depressive disorder Major depressive disorder, recurrent, moderate Start: 11-26-2023 End: 04-05-2024 take 120 mg [...] 90 MG PO Daily at bedtime 90 30 February 17, 2020 12:00am November 26, 2023 8:33am Start: 02-17-2020 End: 11-26-2023 take 90 mg by mouth once daily at bedtime Duloxetine Discontinued 90 MG PO Daily at bedtime 90 30 February 16, 2020 11:00pm November 26, 2023 [...] 01, 2023 1:00am Complies with drug therapy melatonin 10 mg oral tablet (20 sources) [...] Active methenamine hippurate 1000 mg oral tablet (18 sources) Start: 09-27-2024 Methenamine Hippurate 1 gram tablet Active 1 GM PO Twice daily September 27, 2024 1:00am Complies with drug therapy Multiple Vitamins-Minerals (MULTI [...] 2021 11:00pm Multivitamin Act rafal Multivitamin Tablet (20 sources) Start: 12-07-2021 take 1 tablet [...] 2021 11:00pm ondansetron 8 mg oral tablet (20 sources) Serotonin-3 Receptor Antagonist Start: 04-21-2025 take 1 tablet by mouth every twelve hours as needed for nausea and vomiting Ondansetron Hcl 8 mg tablet Active 8 MG PO Every 12 hours as needed for nausea and vomiting 14 0 April 21, 2025 12:00am Complies with drug therapy Start: 09-27-2024 End: 02-22-2025 take 1 tablet by mouth every eight hours as needed for nausea and vomiting Ondansetron 4 mg tablet,disintegrating Discontinued 4 MG PO Every 8 hours as needed for nausea and vomiting 10 4 0 September 27, 2024 1:00am February 22, 2025 4:48pm Start: 07-07-2023 take 1 tablet by miranda th three times daily as needed Zofran 4 MG 1 tablet Orally tid prn ODT Jun, Active pantoprazole 40 mg delayed release oral tablet (20 sources) Proton Pump Inhibitor Start: 08-19-2024 take 1 tablet by mouth once daily Pantoprazole 40 mg tablet,delayed release (DR/EC) Active 40 MG PO Daily 90 August 19, 2024 1:00am Complies with drug therapy pregabalin 75 mg oral capsule (14 sources) Start: 05-25-2025 take 1 capsule by mouth three times daily Pregabalin 75 mg capsule Active 75 MG PO Three times daily May 25, 2025 3:18pm Complies with drug therapy Start: 03-11-2025 End: 05-25-2025 take 1 capsule by mouth twice daily Pregabalin 75 mg capsule Discontinued 75 MG PO Twice daily March 11, 2025 12:00am May 25, 2025 3:19pm valACYclovir 1000 mg oral tablet (20 sources) [...] 2020 7:16pm take 1 tablet by miranda once daily valACYclovir (Valtrex) 500 MG tablet [...] 11/03/2024 Discontinued take 1 capsule by mo [facility] every twenty-four hours Vraylar 1.5 MG 1 capsule Orally Once a day Active ciprofloxacin 250 mg oral tablet (20 sources) Quinolone Antimicrobial Start: 08-12-2024 End: 08-19-2024 take 1 tablet by mouth twice daily Ciprofloxacin Hcl (Cipro) 250 mg tablet Discontinued 250 MG PO Twice daily 10 5 0 August 12, 2024 1:00am August 19, 2024 10:00am Urinary tract infection Urinary tract infection, site not specified Start: 06-21-2024 End: 11-03-2024 Ciprofloxacin Hcl 500 [...] 450 MG PO Three times daily 63 7 0 August 28, 2024 1:00am September 27, 2024 [...] Discontinued doxycycline hyclate 100 mg oral capsule (14 sources) Tetracycline-class Drug Start: 02-22-2025 End: 03-03-2025 take 1 capsule by mouth twice daily Doxycycline Hyclate 100 mg capsule Discontinued 100 MG PO Twice daily 14 7 0 February 22, 2025 12:00am March 03, 2025 [...] Discontinued 325 MG PO Daily 90 90 0 April 22, 2024 12:00am August 09, 2024 4:57pm Iron deficiency Iron deficiency fluocinonide 0.5 mg/ml topical solution (13 sources) [...] hrs Not-Taking ibuprofen 800 mg oral tablet (20 sources) Nonsteroidal Anti-inflammatory [...] Discontinued 10 MG PO Daily 90 90 1 September 29, 2024 1:08pm March 14, 2025 7:46am Hypertension Essential (primary) hypertension Start: 10-01-2023 End: 11-26-2023 take 10 mg [...] ve MG PO June 14, 2024 11:00pm methocarbamol 500 mg oral tablet (14 sources) Muscle Relaxant Start: 02-17-2025 End: 05-25-2025 take 1 tablet by mouth twice daily as needed Methocarbamol 500 mg tablet Discontinued 500 MG PO Twice daily as needed February 17, 2025 12:00am May 25, 2025 3:19pm 24 hr metoprolol succinate 50 mg extended release oral tablet (20 sources) beta-Adrenergic Toña Start: 02-12-2020 End: 12-07-2021 take 1 tablet by mouth once daily Metoprolol Succinate 50 mg tablet extended release 24 hr Discontinued 50 MG PO Daily February 12, 2020 12:00am December 07, 2021 10:46am 24 hr mirabegron 25 mg extended release oral tablet (14 sources) beta3-Adrenergic Agonist Start: 02-17-2025 End: 05-25-2025 take 1 tablet by mouth every twenty-four hours Mirabegron (Myrbetriq) 25 mg tablet extended release 24 hr Discontinued 25 MG PO Q24H February 17, 2025 12:00am May 25, 2025 3:17pm niacin 500 mg oral tablet (20 sources) [...] 100 MG PO Every 12 hours 10 5 0 June 15, 2024 12:00am June 21, 2024 12:32pm must administer with a meal/food Start: 05-31-2021 take 1 capsule by mo [facility] every twelve hours Macrobid 100 MG 1 cap(s) Orally bid for 5 day(s) May, Active ofloxacin 3 mg/ml ophthalmic solution (8 sources) Quinolone Antimicrobial Start: 03-29-2025 End: 04-21-2025 take 0.3 drop(s) into the eye(s) four times daily Ofloxacin 0.3 % drops Discontinued 2 DROPS EYE-BOTH Four times daily 10 7 0 March 29, 2025 12:00am April 21, 2025 4:22pm phenazopyridine hydrochloride 200 mg oral tablet (20 sources) Start: 08-09-2024 End: 08-19-2024 take 1 tablet by mouth three times daily Phenazopyridine (Pyridium) 200 mg tablet Discontinued 200 MG PO Three times daily 6 0 August 09, 2024 1:00am August 19, 2024 10:01am Dysuria Dysuria Start: 06-15-2024 End: 06-21-2024 take 1 tablet by mouth three times daily as needed for pain Phenazopyridine (Pyridium) 200 mg tablet Discontinued 200 MG PO Three times daily as needed for pain 9 3 0 June 15, 2024 12:00am June 21, 2024 [...] day(s) May, Active Sod Picosulf-Mag Ox-Citric Ac (19 sources) Start: 07-20-2024 End: 08-19-2024 take 1 dose by mouth once daily Sod Picosulf-Mag Ox-Citric Ac (Clenpiq) 10 mg-3.5 gram- 12 gram/175 mL solution Discontinued 175 ML PO Daily 350 0 0 July 20, 2024 1:00am August 19, 2024 10:01am Bowel Prep take first dose at 3PM evening before [...] Dihydrofolate Reductase Inhibitor Antibacterial, Sulfonamide Antimicrobial Start: 05-13-2025 End: 05-25-2025 take 1 tablet by mouth twice daily Sulfamethoxazole-Trimethoprim (Bactrim Ds) 800-160 mg tablet Discontinued 1 TAB PO Twice daily 20 May 13, 2025 12:00am May 25, 2025 3:18pm Cellulitis Cellulitis, unspecified Start: 02-17-2025 End: 03-03-2025 take 1 tablet by mouth twice daily Sulfamethoxazole-Trimethoprim (Bactrim D s) 800-160 mg tablet Discontinued 1 TAB PO Twice daily 10 5 0 February 17, 2025 12:00am March 03, 2025 10:31am Urinary tract infection Urinary tract infection, site not specified Start: 08-09-2024 End: 08-12-2024 take 1 tablet by mouth twice daily Sulfamethoxazole-Trimethoprim (Bactrim D s) 800-160 mg tablet Discontinued 1 TAB PO Twice daily 10 5 0 August 09, 2024 1:00am August 12, 2024 9:45am Dysuria Dysuria triamcinolone acetonide 1 mg/ml topical cream (11 sources) Corticosteroid Start: 02-22-2025 End: 03-11-2025 Triamcinolone Acetonide 0.1 % cream Discontinued 1 APPLIC TOPICAL Three times daily 15 7 0 February 22, 2025 12:00am March 11, 2025 [...] Cardiac dysrhythmias (20 sources) Palpitations; Translations: [Palpitations] Onset: 05-25-2025 4 Episodic Chronic obstructive pulmonary disease and bronchiectasis [...] known physiological condition] 08-18-2024 Chronic Developmental disorders (20 sources) Communication disorder; 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, unspecified] 11-16-2024 Chronic Diabetes mellitus without complication (20 sources) Impaired fasting glucose; Translations: [Prediabetes] Episodic E Codes: Adverse effects of medical drugs (7 sources) Adverse reaction to drug; Translations: [Adverse [...] that caused by tuberculosis or sexually transmitteddisease) (14 sources) Bacterial conjunctivitis; Translations: [Unspecified conjunctivitis] 03-29-2025 Episodic Intestinal infection (10 sources) Viral gastroenteritis; Translations: [Viral intestinal infection, unspecified] 04-21-2025 Episodic Malaise and fatigue (20 sources) Fatigue; Translations: [Other fatigue] 04-22-2024 Episodic Menstrual disorders (20 sources) Amenorrhea; Translations: [Amenorrhea, unspecified] Onset: 03-07-2022 Chronic Mood disorders (20 sources) Recurrent major depression in partial remission; Translations: [Major depressive disorder, recurrent, in partial remission] Onset: 05-31-2024 Chronic Nausea and vomiting (1 source) Nausea with vomiting, unspecified Episodic Nutritional deficiencies (18 sources) Vitamin D deficiency; Translations: [Vitamin D [...] unspecified Episodic Other inflammatory condition of skin (18 sources) Scalp itchy; Translations: [Pruritus, unspecified] 03-11-2025 Episodic Other liver diseases (20 sources) Fatty (change of) liver, not elsewhere classified; Translations: [Nonalcoholic fatty liver disease] 06-21-2024 Chronic Other lower respiratory disease (20 sources) Snoring; Translations: [Snoring] 04-22-2024 Episodic Other lower respiratory disease (20 sources) Apnea; Translations: [Apnea, not elsewhere classified] 04-22-2024 Episodic Other lower respiratory disease (5 sources) Apnea, not elsewhere classified; Translations: [Apnea] 04-21-2024 Episodic Other lower respiratory disease (5 sources) Snoring; Translations: [Other respiratory abnormalities] 04-21-2024 Episodic Other lower respiratory disease (6 sources) Dyspnea; Translations: [Dyspnea, unspecified] 05-25-2025 Episodic Other nervous system disorders (17 sources) [...] nutritional; endocrine; and metabolic disorders (18 sources) Severe obesity; Translations: [Class 3 severe obesity with body mass index (BMI) of 50.0 to 59.9 in adult] 04-15-2025 Chronic Other nutritional; endocrine; and metabolic disorders (20 sources) Abnormal weight gain; Translations: [Abnormal weight gain] Onset: 02-11-2023 02-11-2023 Episodic Other nutritional; endocrine; and metabolic disorders (18 sources) Failure to lose weight; Translations: [Other symptoms and signs concerning food and fluid intake] 03-22-2025 Episodic Other screening for suspected conditions (not mental disorders or infectious disease) (4 sources) Encounter for screening for malignant neoplasm of cervix; Translations: [ENC SCREENING MALIG NEOPLASM CERV] Onset: 10-28-2022 Episodic Other skin disorders (19 sources) Excessive sweating; Translations: [Generalized hyperhidrosis] 08-10-2024 Episodic Other skin disorders (4 sources) Generalized hyperhidrosis; Translations: [Generalized hyperhidrosis] 08-09-2024 Episodic Other skin disorders (16 sources) Localized swelling, mass and lump, head; [...] 04-21-2024 Episodic Skin and subcutaneous tissue infections (20 sources) Cellulitis; Translations: [Cellulitis, unspecified] 08-28-2024 Episodic Spondylosis; intervertebral disc disorders; other back problems (20 sources) Sacroiliitis, not elsewhere classified; Translations: [Other intervertebral disc degeneration, lumbar region] Onset: 11-08-2022 Chronic Unclassified (2 sources) E66.01 - Morbid (severe) obesity due to excess calories,Z59.41 - Food insecurity,R73.03 - Prediabetes,E88.819 - Insulin resistance, unspecified Unclassified (3 sources) Presence of morbid obesity in a young patient and chronic disease risk that arises therefrom. 05-25-2025 Urinary tract infections (20 sources) Urinary tract [...] Test Name Value Interpretation Reference Range Facility [facility] ECG *CARDIOLOGY ONLY*on 05-25-2025 [facility] ECG *CARDIOLOGY ONLY* [facility] [place] [address] [place] [address] Electrocardiograph Report Signed Patient: Ashly Mehta MR#: [id number] 8 : 1990 Acct:[id number] Age/Sex: 34 / F ADM Date: 05/25/25 Loc: [facility] Room: Type: [facility] Attending Dr: Viry Jolly RD Ordering Provider: Manpreet Rao MD Date of Service: 05/25/2504/11/1504 ECG/[facility] ECG *CARDIOLOGY ONLY*: R00.0 - Tachycardia, unspecified Copies to: Test Reason : Blood Pressure : */* mmHG Vent. Rate : 89 BPM Atrial Rate : 89 BPM P-R Int : 156 ms QRS Dur : 76 ms QT Int : 368 ms P-R-T Axes : 41 23 32 degrees QTcB Int : 447 ms Normal sinus rhythm Normal ECG No previous ECGs available Confirmed by Aidan Billings ([id number]) on 05/26/2025 10:51:35 PM Referred By: Electronically Signed By: Aidan Billings Transcribed By: MUS Signed By Aidan Billings MD 05/26/25 2251 Normal [facility] Basophils Auto (Bld) [#/Vol] Ordered By: Manisha Marc on 03-22-2025 Basophils (Bld) [#/Vol] 0.1 10 3/uL 0.0-0.1 [facility] Basophils/100 WBC Auto (Bld) Ordered By: Manisha Marc on 03-22-2025 Basophils/100 WBC (Bld) 0.8 % 0.2-2.0 [facility] Cholesterol in LDL Calc [Mas s/Vol]Ordered By: Manisha Marc on 03-22-2025 Cholesterol in LDL [Mass/Vol] 90.4 mg/dL [facility] Comment on above: <100 mg/dl [id number] 0-129 mg/dl NEAR OR ABOVE [id number] mg/dl BORDERLINE [id number] mg/dl HIGH>190 mg/dl VERY HIGH Cholesterol in VLDL Calc [Ma ss/Vol]Ordered By: Manisha Marc on 03-22-2025 Cholesterol in VLDL [Mass/Vol] 27.6 mg/dL [facility] Eosinophils/100 WBC Auto (Bl d)Ordered By: Manisha Marc on 03-22-2025 Eosinophils/100 WBC (Bld) 1.6 % 0.9-7.0 [facility] Erythrocyte distribution wid th Auto (RBC) [Ratio]Ordered By: Manisha Marc on 03-22-2025 Erythrocyte distribution width (RBC) [Ratio] 12.6 % 11.0-15.0 [facility] Globulin Calc (S) [Mass/Vol] Ordered By: Manisha Marc on 03-22-2025 Globulin (S) [Mass/Vol] 4.1 g/dL [facility] Glomerular filtration rate ( GFR) estimation in non- AmericanOrdered By: Manisha aMrc on 03-22-2025 GFR/1.73 sq M.predicted among non-blacks MDRD (S/P/Bld) [Vol rate/Area] mL/min/{1.73_m2} >=60 mL/min/1.7 3m 2 [facility] Glucose mean value [Mass/vol ume] in Blood Estimated from glycated hemoglobinOrdered By: Manisha Marc on 03-22-2025 Average glucose Estimated from glycated hemoglobin (Bld) [Mass/Vol] 108 mg/dL [facility] Hematocrit Auto (Bld) [Volum e fraction]Ordered By: Manisha Marc on 03-22-2025 Hematocrit (Bld) [Volume fraction] 41.3 % 36.0-48.0 [facility] Hemoglobin A1c percentageOrd ered By: Manisha Marc on 03-22-2025 HbA1c (Bld) [Mass fraction] 5.4 % 4.5-6.2 [facility] Comment on above: ADA RECOMMENDED LIMI T 4.0 - 6.0ADA THERAPEUTIC TARGET < 7.0ACTION SUGGESTED> 7.0 Hemoglobin [Mass/volume] in BloodOrdered By: Manisha Marc on 03-22-2025 Hemoglobin (Bld) [Mass/Vol] 13.5 g/dL 12.0-16.0 [facility] Laboratory - Chemistry and C hemistry - challengeOrdered By: Manisha Marc on 03-22-2025 Albumin [Mass/Vol] 3.7 g/dL 3.4-5.0 [facility] ALP [Catalytic activity/Vol] 84 U/L 46-116 [facility] ALT [Catalytic activity/Vol] 61 U/L High 14-59 [facility] AST [Catalytic activity/Vol] 31 U/L 15-37 [facility] Bilirubin [Mass/Vol] 0.4 mg/dL 0.2-1.0 [facility] Calcium [Mass/Vol] 8.9 mg/dL 8.5-10.1 [facility] Chloride [Moles/Vol] 103 mmol/L 98-107 [facility] Cholesterol [Mass/Vol] 162 mg/dL <=200 [facility] Cholesterol in HDL [Mass/Vol] 44 mg/dL 40-60 [facility] Comment on above: > or =60 mg/dl - LOW CARDIOVASCULAR RISK<40 mg/dl - HIGH CARDIOVASCULAR RISK CO2 [Moles/Vol] 26.0 mmol/L 21.0-32.0 [facility] Cobalamin (Vitamin B12) [Mass/Vol] 804 pg/mL 232-1245 [facility] Comment on above: Performed at: - [address] [id number] Director: Cassius Zhong PhD, Phone: [phone] Creatinine [Mass/Vol] 0.59 mg/dL 0.55-1.02 [facility] GFR/1.73 sq M.predicted MDRD (S/P/Bld) [Vol rate/Area] mL/min/{1.73_m2} >=60 mL/min/1.7 3m 2 [facility] Glucose [Mass/Vol] 98 mg/dL 74-106 [facility] Potassium [Moles/Vol] 4.3 mmol/L 3.5-5.1 [facility] Protein [Mass/Vol] 7.8 g/dL 6.4-8.2 [facility] Sodium [Moles/Vol] 138 mmol/L 136-145 [facility] Triglyceride [Mass/Vol] 138 mg/dL <=150 [facility] TSH Qn 1.174 m[IU]/L 0.358-3.74 0 [facility] Urea nitrogen [Mass/Vol] 14.0 mg/dL 7.0-18.0 [facility] Urea nitrogen/Creatinine [Mass ratio] 23.7 mg/mg [facility] Laboratory - Hematology and Cell countsOrdered By: Manisha Marc on 03-22-2025 Immature granulocytes/100 WBC (Bld) 0.1 % 0.0-0.5 [facility] Leukocytes [#/volume] correc carmelita for nucleated erythrocytes in Blood by Automated counOrdered By: Manisha Marc on 03-22-2025 WBC corrected for nucl RBC Auto (Bld) [#/Vol] 7.3 10 3/uL 4.0-11.0 [facility] Lymphocytes Auto (Bld) [#/Vo l]Ordered By: Manisha Marc on 03-22-2025 Lymphocytes (Bld) [#/Vol] 2.4 10 3/uL 1.2-3.8 [facility] Lymphocytes/100 WBC Auto (Bl d)Ordered By: Manisha Marc on 03-22-2025 Lymphocytes/100 WBC (Bld) 32.2 % 20.5-60.0 [facility] MCH Auto (RBC) [Entitic mass ]Ordered By: Manisha Marc on 03-22-2025 MCH (RBC) [Entitic mass] 29.8 pg 26.7-34.0 [facility] MCHC Auto (RBC) [Mass/Vol]Or dered By: Manisha Marc on 03-22-2025 MCHC (RBC) [Mass/Vol] 32.7 g/dL 29.9-35.2 [facility] MCV Auto (RBC) [Entitic vol] Ordered By: Manisha Marc on 03-22-2025 MCV (RBC) [Entitic vol] 91.2 fL 81.0-99.0 [facility] Monocytes Auto (Bld) [#/Vol] Ordered By: Manisha Marc on 03-22-2025 Monocytes (Bld) [#/Vol] 0.3 10 3/uL 0.3-0.8 [facility] Monocytes/100 WBC Auto (Bld) Ordered By: Manisha Marc on 03-22-2025 Monocytes/100 WBC (Bld) 4.5 % 1.7-12.0 [facility] Neutrophils Auto (Bld) [#/Vo l]Ordered By: Manisha Marc on 03-22-2025 Neutrophils (Bld) [#/Vol] 4.4 10 3/uL 1.4-6.5 [facility] Neutrophils/100 WBC Auto (Bl d)Ordered By: Manisha Marc on 03-22-2025 Neutrophils/100 WBC (Bld) 60.8 % 43.0-75.0 [facility] No Panel InformationOrdered By: Manisha Marc on 03-22-2025 25-Hydroxy Vitamin D Total 24.0 ng/mL [facility] Comment on above: <20 ng/mL Vit D defi cient20-<30 ng/mL Vit D [id number] ng/mL Vit D sufficient>100 ng/mL Potential Toxicity Eosinophils # (Auto) 0.1 10 3/uL 0.0-0.7 [facility] Immature Granulocyte # (Auto) 0.01 10 3/uL 0.00-0.03 [facility] Platelet mean volume Auto (B ld) [Entitic vol]Ordered By: Manisha Marc on 03-22-2025 Platelet mean volume (Bld) [Entitic vol] 9.5 fL 9.5-13.5 [facility] Platelets Auto (Bld) [#/Vol] Ordered By: Manisha Marc on 03-22-2025 Platelets (Bld) [#/Vol] 251 10 3/uL 150-450 [facility] RBC Auto (Bld) [#/Vol]Ordere d By: Manisha Marc on 03-22-2025 RBC (Bld) [#/Vol] 4.53 10 6/uL 4.20-5.40 [facility] Serum or plasma albumin/glob ulin mass ratioOrdered By: Manisha Marc on 03-22-2025 Albumin/Globulin [Mass ratio] 0.9 {ratio} [facility] Serum or plasma anion gap de terminationOrdered By: Manisha Marc on 03-22-2025 Anion gap [Moles/Vol] 13.3 mmol/L [facility] Serum or plasma total choles terol/high density lipoprotein (HDL) cholesterol mass ratOrdered By: Manisha Marc on 03-22-2025 Cholesterol.total/Mali sterol in HDL [Mass ratio] 3.7 {ratio} [facility] Comment on above: 3.3 - 4.4 LOW RISK4. 4 - 7.1 AVERAGE RISK7.1 - 11.0 MODERATE RISK>11.0 HIGH RISK Laboratory - Chemistry and C hemistry - challengeOrdered By: Manisha Marc on 02-17-2025 Bilirubin Ql (U) Negative [facility] Glucose (U) [Mass/Vol] Negative [facility] Ketones Ql (U) Positive [facility] pH (U) 5.0 [pH] [facility] Specific gravity (U) [Rel density] 1.010 [facility] Urobilinogen (U) [Mass/Vol] 0.2 mg/dL [facility] Laboratory - Specimen inform ationOrdered By: Manisha Marc on 02-17-2025 Appearance (U) Cloudy [facility] Color (U) Turbid [facility] Laboratory - UrinalysisOrder ed By: Manisha Marc on 02-17-2025 Leukocyte esterase Test strip Ql (U) +3 [facility] Nitrite Ql (U) Positive [facility] Protein Ql (U) Positive [facility] No Panel InformationOrdered By: Manisha Marc on 02-17-2025 Urine Occult Blood Negative [facility] Urine Cultureon 02-17-2025 Bacteria identified Cx Nom (U) ORGANISM: Escherichia coli (O:ESCCOL) Cawood Count >100,000 Aerobic RENATE Charge (NMIC56) -- [...] RESISTANT TO ALL B-LACTAM DRUGS. PERFORMED BY: [facility] [address] [id number] PATHOLOGIST MACHINE SETTER KVNG CONLEY M.D. Normal [facility] Comment on above: Performed By: #### C UU #### [address] [address] [facility] Urine cultureOrdered By: Keesha Marc on 02-17-2025 Bacteria identified Cx Nom (U) Escherichia coli Abnormal [facility] Outside Recordson 02-02-2025 Outside Records [id number] [id number]#1.00O [facility] Outside Records [id number] 031 [id number]#1.00O [facility] Outside Records [id number] 031 [id number]#1.00O [facility] Outside Records [id number] [id number]#1.00O [facility] Outside Records [id number] 031 [id number]#1.00O [facility] Outside Records [id number] [id number]#1.00O [facility] Outside Records [id number] 031 [id number]#1.00O [facility] Outside Records [id number] [id number]#1.00O [facility] Outside Records [id number] [id number]#1.00O [facility] Outside Records [id number] 031 [id number]#1.00O [facility] [id number] 031 [id number]#1.00O [facility] Albumin [Mass/volume] in Ser um or Plasmaon 12-28-2024 Albumin [Mass/Vol] 3.4 g/dL 2.9-4.4 [facility] Basophils Auto (Bld) [#/Vol] on 12-28-2024 Basophils (Bld) [#/Vol] 0.1 10 3/uL 0.0-0.1 [facility] Basophils/100 WBC Auto (Bld) on 12-28-2024 Basophils/100 WBC (Bld) 0.8 % 0.2-2.0 [facility] Eosinophils/100 WBC Auto (Bl d)on 12-28-2024 Eosinophils/100 WBC (Bld) 2.0 % 0.9-7.0 [facility] Erythrocyte distribution wid th Auto (RBC) [Ratio]on 12-28-2024 Erythrocyte distribution width (RBC) [Ratio] 12.1 % 11.0-15.0 [facility] Hematocrit Auto (Bld) [Volum e fraction]on 12-28-2024 Hematocrit (Bld) [Volume fraction] 41.5 % 36.0-48.0 [facility] Hemoglobin [Mass/volume] in Bloodon 12-28-2024 Hemoglobin (Bld) [Mass/Vol] 13.6 g/dL 12.0-16.0 [facility] IgA [Mass/volume] in Serum o r Plasmaon 12-28-2024 IgA [Mass/Vol] 122 mg/dL 87-352 [facility] IgE [Units/volume] in Serum or Plasmaon 12-28-2024 IgE Qn 236 [IU]/mL 6-495 [facility] Comment on above: Performed at: - [address] [id number] Director: Jeanna Case MD, Phone: [phone] IgG [Mass/volume] in Serum o r Plasmaon 12-28-2024 IgG [Mass/Vol] 1135 mg/dL 586-1602 [facility] IgM [Mass/volume] in Serum o r Plasmaon 12-28-2024 IgM [Mass/Vol] 105 mg/dL 26-217 [facility] Immunoglobulin light chains. kappa.free [Mass/volume] in Serumon 12-28-2024 Immunoglobulin light chains.kappa.free (S) [Mass/Vol] 18.1 mg/L 3.3-19.4 [facility] Immunoglobulin light chains. kappa.free/Immunoglobulin light chains.lambda.free [Katelin 12-28-2024 Immunoglobulin light chains.kappa.free/Immun oglobulin light chains.lambda.free (S) [Mass ratio] 0.92 0.26-1.65 [facility] Comment on above: Performed at: [address] [id number] Director: Cassius Zhong PhD, Phone: [phone] Immunoglobulin light chains. lambda.free [Mass/volume] in Serum or Plasmaon 12-28-2024 Immunoglobulin light chains.lambda.free [Mass/Vol] 19.6 mg/L 5.7-26.3 [facility] Laboratory - Chemistry and C hemistry - challengeon 12-28-2024 LDH [Catalytic activity/Vol] 190 U/L 81-234 [facility] Laboratory - Hematology and Cell countson 12-28-2024 ESR (Bld) [Velocity] 31 mm/h High <=20 [facility] Immature granulocytes/100 WBC (Bld) 0.2 % 0.0-0.5 [facility] Leukocytes [#/volume] correc carmelita for nucleated erythrocytes in Blood by Automated counon 12-28-2024 WBC corrected for nucl RBC Auto (Bld) [#/Vol] 6.7 10 3/uL 4.0-11.0 [facility] Lymphocytes Auto (Bld) [#/Vo l]on 12-28-2024 Lymphocytes (Bld) [#/Vol] 2.5 10 3/uL 1.2-3.8 [facility] Lymphocytes/100 WBC Auto (Bl d)on 12-28-2024 Lymphocytes/100 WBC (Bld) 37.0 % 20.5-60.0 [facility] MCH Auto (RBC) [Entitic mass ]on 12-28-2024 MCH (RBC) [Entitic mass] 30.6 pg 26.7-34.0 [facility] MCHC Auto (RBC) [Mass/Vol]on 12-28-2024 MCHC (RBC) [Mass/Vol] 32.8 g/dL 29.9-35.2 [facility] MCV Auto (RBC) [Entitic vol] on 12-28-2024 MCV (RBC) [Entitic vol] 93.5 fL 81.0-99.0 [facility] Monocytes Auto (Bld) [#/Vol] on 12-28-2024 Monocytes (Bld) [#/Vol] 0.3 10 3/uL 0.3-0.8 [facility] Monocytes/100 WBC Auto (Bld) on 12-28-2024 Monocytes/100 WBC (Bld) 4.8 % 1.7-12.0 [facility] Neutrophils Auto (Bld) [#/Vo l]on 12-28-2024 Neutrophils (Bld) [#/Vol] 3.7 10 3/uL 1.4-6.5 [facility] Neutrophils/100 WBC Auto (Bl d)on 12-28-2024 Neutrophils/100 WBC (Bld) 55.2 % 43.0-75.0 [facility] No Panel Informationon 12-28 C-Reactive Protein, Quantitative 0.96 mg/dL High <=0.50 [facility] Eosinophils # (Auto) 0.1 10 3/uL 0.0-0.7 [facility] Immature Granulocyte # (Auto) 0.01 10 3/uL 0.00-0.03 [facility] Protein Electrophoresis M-Manpreet Not Observed g/dL Not Observed [facility] Protein Electrophoresis Note Comment . [facility] Comment on above: Protein electrophore sis scan will follow via computer,mail, or electrical wiring lineman delivery. Platelet mean volume Auto (B ld) [Entitic vol]on 12-28-2024 Platelet mean volume (Bld) [Entitic vol] 9.5 fL 9.5-13.5 [facility] Platelets Auto (Bld) [#/Vol] on 12-28-2024 Platelets (Bld) [#/Vol] 191 10 3/uL 150-450 [facility] Protein [Mass/volume] in Ser um or Plasmaon 12-28-2024 Protein [Mass/Vol] 6.6 g/dL 6.0-8.5 [facility] RBC Auto (Bld) [#/Vol]on RBC (Bld) [#/Vol] 4.44 10 6/uL 4.20-5.40 [facility] Reticulocytes/100 RBC Auto ( Bld)on 12-28-2024 Reticulocytes/100 RBC (Bld) 1.53 % 0.60-3.10 [facility] Serum globulin measurement ( mass/volume)on 12-28-2024 Globulin (S) [Mass/Vol] 3.2 g/dL 2.2-3.9 [facility] Serum or plasma albumin/glob ulin mass ratioon 12-28-2024 Albumin/Globulin [Mass ratio] 1.1 {ratio} 0.7-1.7 [facility] Serum or plasma alpha 1 glob ulin measurement by electrophoresis (mass/volume)on 12-28-2024 Alpha 1 globulin Elph [Mass/Vol] 0.2 g/dL 0.0-0.4 [facility] Serum or plasma alpha 2 glob ulin measurement by electrophoresis (mass/volume)on 12-28-2024 Alpha 2 globulin Elph [Mass/Vol] 0.8 g/dL 0.4-1.0 [facility] Serum or plasma beta globuli n measurement by electrophoresis (mass/volume)on 12-28-2024 Beta globulin Elph [Mass/Vol] 1.0 g/dL 0.7-1.3 [facility] Serum or plasma gamma globul in measurement by electrophoresis (mass/volume)on 12-28-2024 Gamma globulin Elph [Mass/Vol] 1.1 g/dL 0.4-1.8 [facility] Serum or plasma immunoelectr ophoresis interpretationon 12-28-2024 Interpretation IEP [Interp] Comment . [facility] [...] II, MD, PHD at 01-Dec-2024 12:04:08 AM [email or web address] Normal Not Available Comment on above: Order Comment: US PE LVIS-TRANSVAG IF INDICATED No LMP recorded. HCG ( test) Ql (U)o n 11-03-2024 Interpretation and review of laboratory results Normal [facility] Preg Test, Ur Negative Negative [facility] Human papilloma virus 16+18+ 31+33+35+39+45+51+52+56+58+59+66+68 DNA [Presence] in [place] 11-03-2024 HPV 16+18+31+33+35+39+45+51 +52+56+58+59+66+68 DNA Probe+sig amp Ql (Cvx) Human papilloma virus 16+18+31+33+35+39+45+51 +52+56+58+59+66+68 DNA [Presence] in Cer Negative [facility] Comment on above: This nucleic acid am plification test detects fourteen high-risk HPV types (16,18,31,33,35,39,45,51,52,56,58,59,66,68)without differentiation.Performed at: =G - [facility] [id number] [place], [place] [id number] Director: Monse Cardona MD, Phone: [phone] at: - [facility] [address] [id number] Director: Monse Cardona MD, Phone: [phone] No Panel Informationon 11-03 HPV High Risk Other Comment Note . [facility] Comment on above: TESTS RESULT FLAG UN ITS REF RANGE LAB -DIAGNOSIS: 02 NEGATIVE FOR INTRAEPITHELIAL LESION OR MALIGNANCY.Specimen adequacy: 02 Satisfactory for evaluation. Endocervical and/or squamous metaplastic cells (endocervical component) are present.Performed by: 02 Hiro Garces, Online User Experience Strategist (ASCP). 02Note: Note 02 The Pap smear [...] Low,>-Panic High,A-Abnormal,AA-Critical Abnormal ------Performed at:02 WB [facility] [place] [address] [facility] [place] [address] Monse Cardona MD, Reference Lab Test Patient Age Note . [facility] Comment on above: TESTS RESULT FLAG UN ITS REF RANGE LAB - Clinician Provided Cytology Information Source.............Cervix;Endocervix No. of containers..01 ThinPrep VialAge Algo ACOG Elise... 30-65 01 FLAG LEGEND: L-Low Normal,H-High Normal,LL-Alert Low,HH-Alert High <-Panic Low,>-Panic High,A-Abnormal,AA-Critical Abnormal ------Performed at:01 =G [facility] [place] [address] [place] [address] Monse Cardona MD, Basophils Auto (Bld) [#/Vol] [...] Calcium [Mass/Vol] 9.0 mg/dL 8.5-10.1 [facility] Chloride [Moles/Vol] 104 mmol/L 98-107 [facility] CO2 [Moles/Vol] 26.8 mmol/L 21.0-32.0 [facility] Creatinine [Mass/Vol] 0.73 mg/dL 0.55-1.02 [facility] Ferritin [Mass/Vol] 321.0 ng/mL High 8.0-252.0 [facility] GFR/1.73 sq M.predicted MDRD (S/P/Bld) [Vol rate/Area] mL/min/{1.73_m2} >=60 mL/min/1.7 3m 2 [facility] Glucose [Mass/Vol] 89 mg/dL 74-106 [facility] Iron [Mass/Vol] 70.0 ug/dL 50.0-170.0 [facility] Potassium [Moles/Vol] 4.4 mmol/L 3.5-5.1 [facility] Sodium [Moles/Vol] 138 mmol/L 136-145 [facility] Urea nitrogen [Mass/Vol] 10.0 mg/dL 7.0-18.0 [facility] Urea nitrogen/Creatinine [Mass ratio] 13.7 mg/mg [facility] Laboratory - Hematology and Cell countson 10-12-2024 ESR (Bld) [Velocity] 46 mm/h High <=20 [facility] Immature granulocytes/100 WBC (Bld) 0.3 % 0.0-0.5 [...] Eosinophils # (Auto) 0.2 10 3/uL 0.0-0.7 [facility] Immature Granulocyte # (Auto) 0.03 10 [...] Medical Center POC SARS CoV-2 Antigen Negative [facility] Iron binding capacity [Mass/ volume] in Serum [...] toMumps virus or previous vaccination.Performed at: - [address] [id number] Director: Cassius Zhong PhD, Phone: [phone] Pathology study report docum entOrdered By: Thaddeus Shah on 08-20-2024 Pathology study [facility] Other HCG ( test) Bello mejia Ql (U)Ordered By: Hilaria Burgos on 08-19-2024 HCG ( test) Ql (U) Urine human chorionic gonadotropin (hCG) detection by immunoassay [facility] HCG,Urineon 08-19-2024 Beta HCG ( test) Ql (U) Negative Normal [facility] Comment on above: Result Comment: PERF ORMED BY: [place] [address] PATHOLOGIST MACHINE SETTER RYLAN BENEDICT M.D. Performed By: #### U HCG #### [address] Justyn 08-19-2024 L --- Specimen: [id number] Received: 08/19/24 Status: ARLNIE Zavala Num: [id number] Spec Type: Surgical Subm Dr: Hilaria Burgos, DO Tissues: A Small Intestine - Biopsy/Polyp (SM BOWEL BX R/O CELIAC) B GASTRIC FOR HP (GASTRIC BX R/O H PYLORI) C Esophagus Biopsy (GE JUNCTION BX / ESOPHAGITIS) Procedures: PAS - LGRN, HE/6, Gross/Micro L4/3, H PYLORI Age/ Patient Sex Location Account Attending Physician TysonKeeshaAshly K 33/F [id number] Hilaria Burgos, SPEC NUM: [id number] RECD: 08/19/24 STATUS: ARLINE ZAVALA NUM: [id number] GRADY: 08/19/243 [facility] DR: Hilaria Burgos DO ENTERED: 08/19/24 [facility] DR: ABHISHEK TYPE: Surgical DEPT: S ENTERED BY: [id number] RECV BY: [id number] ORDERED: PAS - LGRN, HE/6, Gross/Micro L4/3, [...] out H. pylori, Part C esophagitis Specimen: [id number] Received: 08/19/24 Status: ARLINE Zavala Num: [id number] Spec Type: Surgical Subm Dr: Hilaria Burgos DO Tissues: A Small Intestine - Biopsy/Polyp (SM BOWEL BX R/O CELIAC) B GASTRIC FOR HP (GASTRIC BX R/O H PYLORI) C Esophagus Biopsy (GE JUNCTION BX / ESOPHAGITIS) Procedures: PAS - LGRN, HE/6, Gross/Micro L4/3, H PYLORI Patient: TysonAshly [id number] (Continued) Specimen: [id number] Received: 08/19/24 (Continued) Signed (signature on file) Thaddeus Shah Jr., MD 08/20/24 1417 Specimen: Received: 08/19/24 Status: ARLINE Zavala Num: [id number] Spec Type: Surgical Subm Dr: Hilaria Burgos DO Tissues: A Small Intestine - Biopsy/Polyp (SM BOWEL BX R/O CELIAC) B GASTRIC FOR HP (GASTRIC BX R/O H PYLORI) C Esophagus Biopsy (GE JUNCTION BX / ESOPHAGITIS) Procedures: PAS - LGRN, HE/6, Gross/Micro L4/3, H PYLORI Patient: Ashly Mehta [id number] (Continued) Specimen: Received: 08/19/24 (Continued) Gross Description [...] negative with a satisfactory control. CPT Codes 11537 x 3, 83302, 13062 -- (more content not included)... Normal [facility] Urine Cultureon 08-09-2024 Bacteria identified Cx Nom (U) ORGANISM: Escherichia coli (ESBL) (O:ESCCOLESBL) Cawood Count >100,000 Aerobic RENATE Charge (NMIC56) -- [...] RESISTANT TO ALL B-LACTAM DRUGS. PERFORMED BY: [place] [address] PATHOLOGIST MACHINE SETTER RYLAN BENEDICT M.D. Normal [facility] Comment on above: Performed By: #### C UU #### [address] Urine cultureOrdered By: Keesha Marc on [...] Medical Center Comment on above: Performed at: - [address] [id number] Director: Cassius Zhnog PhD, Phone: [phone] Ferritin [Mass/Vol] 43.0 ng/mL 8.0-252.0 [facility] Iron [Mass/Vol] 50.0 ug/dL 50.0-170.0 [facility] LDH [Catalytic activity/Vol] 202 U/L 81-234 [facility] Laboratory - Hematology and Cell countson 06-29-2024 ESR (Bld) [Velocity] 41 mm/h High <=20 [facility] Immature granulocytes/100 WBC (Bld) 0.3 % 0.0-0.5 [...] # (Auto) 0.2 10 3/uL 0.0-0.7 Fir [facility] Immature Granulocyte # (Auto) 0.03 10 3/uL 0.00-0.03 [facility] Protein Electrophoresis M-Manpreet Not Observed g/dL Not Observed [facility] Protein Electrophoresis Note Comment . [facility] Comment on above: Protein electrophore sis scan will follow via computer,mail, or electrical wiring lineman delivery.Performed at: [address] [id number] Director: Cassius Zhong PhD, Phone: [phone] Platelet mean volume Auto (B ld) [Entitic [...] - challengeon 06-25-2024 Bilirubin Ql (U) 0 [facility] Glucose (U) [Mass/Vol] 0 mg/dL [facility] Ketones Ql (U) 0 [facility] [...] 06-25 Urine Occult Blood 0 [facility] Urine Cultureon 06-25-2024 Bacteria identified Cx Nom (U) 30,000 colonies/ml mixed bacterial skin contaminants 2 Days PERFORMED BY: [facility] [address] [place] [address] PATHOLOGIST MACHINE SETTER NESHA MAIER M.D. Normal [facility] Comment on above: Performed By: #### C UU #### [address] Urine cultureOrdered By: Keesha Marc on [...] Basophils/100 WBC (Bld) 0.7 % 0.2-2.0 [facility] Basophils/100 WBC (Bld) Automated basophil [...] above: Performed By: #### C UU #### [facility] [address] [place] [address] #### GCCHLAMTRI #### [facility] , Neisseria Gonorrhoeae, SURI Negative Normal Negative [facility] Comment on above: Performed By: #### C UU #### [facility] [address] [place] [address] [place] #### GCCHLAMTRI #### [facility] , Trichomonas SURI Negative Normal Negative [facility] Comment on above: Result Comment: Perf ormed at: =G - [facility] [address] [id number] Pull Worker: Monse Cardona MD, Phone: [phone] PERFORMED BY: [place] [address] PATHOLOGIST MACHINE SETTER NESHA MAIER M.D. Performed By: #### C UU #### [address] #### GCCHLAMTRI #### [facility] , Eosinophils/100 [...] 06-15-2024 Globulin (S) [Mass/Vol] 4.1 g/dL [facility] Globulin (S) [Mass/Vol] Serum globulin [...] challengeon 06-15-2024 Bilirubin Ql (U) Negative NEGATIVE [facility] Glucose (U) [Mass/Vol] Negative NEGATIVE [facility] Ketones Ql (U) Negative NEGATIVE [facility] pH (U) 6.0 [pH] 5.0-9.0 [facility] Specific gravity (U) [Rel density] 1.025 1.005-1.02 5 [facility] Urobilinogen Qn (U) 0.2 {Tamiko'U}/dL 0.2-1.0 [facility] Albumin [Mass/Vol] 3.6 g/dL 3.4-5.0 [facility] ALP [Catalytic activity/Vol] 76 U/L 46-116 [facility] ALT [Catalytic activity/Vol] 46 U/L 14-59 [facility] AST [Catalytic activity/Vol] 29 U/L 15-37 [facility] Bilirubin [Mass/Vol] 0.4 mg/dL 0.2-1.0 [facility] Calcium [Mass/Vol] 9.5 mg/dL 8.5-10.1 [facility] Chloride [Moles/Vol] 103 mmol/L 98-107 [facility] CO2 [Moles/Vol] 26.4 mmol/L 21.0-32.0 [facility] Creatinine [Mass/Vol] 0.83 mg/dL 0.55-1.02 [facility] GFR/1.73 sq M.predicted MDRD (S/P/Bld) [Vol rate/Area] mL/min/{1.73_m2} >=60 mL/min/1.7 3m 2 [facility] Glucose [Mass/Vol] 102 mg/dL 74-106 [facility] Lactate [Moles/Vol] 1.9 mmol/L 0.4-2.0 [facility] Lipase [Catalytic activity/Vol] 32.0 U/L 16.0-77.0 [facility] Potassium [Moles/Vol] 3.9 mmol/L 3.5-5.1 [facility] Protein [Mass/Vol] 7.7 g/dL 6.4-8.2 [facility] Sodium [Moles/Vol] 139 mmol/L 136-145 [facility] Urea nitrogen [Mass/Vol] 9.0 mg/dL 7.0-18.0 [facility] Urea nitrogen/Creatinine [Mass ratio] 10.8 mg/mg [facility] Laboratory - Hematology and Cell countson 06-15-2024 Immature granulocytes/100 WBC (Bld) 0.2 % 0.0-0.5 [facility] Laboratory - Microbiology an d Antimicrobial susceptibilityOrdered By: Casandra Hassan on 06-15-2024 Bacteria identified Cx Nom (U) Escherichia coli (ESBL) Abnormal [facility] Laboratory - Specimen inform ationon 06-15-2024 Appearance (U) CLEAR CLEAR [facility] Color (U) LT. YELLOW YELLOW [facility] Laboratory - Urinalysison Leukocyte esterase Test strip Ql (U) TRACE Abnormal NEGATIVE [facility] Mucus Ql (Urine sed) TRACE Abnormal NONE SEEN [facility] Nitrite Ql (U) Positive Abnormal NEGATIVE [facility] [...] 06-15-2024 MCHC (RBC) [Mass/Vol] 32.0 g/dL 29.9-35.2 [facility] MCHC (RBC) [Mass/Vol] MCHC [Mass/volume] by Automated count 29.9-35.2 [facility] MCV Auto (RBC) [Entitic vol] on 06-15-2024 MCV (RBC) [Entitic vol] 83.5 fL 81.0-99.0 [facility] MCV (RBC) [Entitic vol] MCV [Entitic vol ume] by Automated count 81.0-99.0 [facility] Monocytes Auto (Bld) [#/Vol] on 06-15-2024 Monocytes (Bld) [#/Vol] 0.6 10 3/uL 0.3-0.8 [facility] Monocytes (Bld) [#/Vol] Automated blood monocyte count 0.3-0.8 [facility] Monocytes/100 WBC Auto (Bld) on 06-15-2024 Monocytes/100 WBC (Bld) 4.9 % 1.7-12.0 [facility] Monocytes/100 WBC (Bld) Automated monocyte [...] [facility] Urine Culture Reflexed YES [facility] Urine Culture Result 1 \R\ Urine Culture , Routine\R\ Organism: Gram negative jus : [facility] Urine Microscopic Review YES [facility] Urine Occult Blood MODERATE Abnormal NEGATIVE [facility] Urine Other Casts NONE SEEN #/LPF NONE SEEN [facility] Urine Other Crystals None Seen #/HPF None Seen [facility] Urine RBC 10-20 #/HPF Abnormal 0-2 [facility] Urine Squamous Epithelial Cells FEW #/LPF Abnormal NONE/RARE [facility] Urine WBC 20-50 #/HPF Abnormal NONE SEEN [facility] Eosinophils # (Auto) 0.1 10 3/uL 0.0-0.7 [facility] Immature Granulocyte # (Auto) 0.03 10 3/uL 0.00-0.03 [facility] Platelet mean volume Auto (B ld) [Entitic vol]on 06-15-2024 Platelet mean volume (Bld) [Entitic vol] 10.0 fL 9.5-13.5 [facility] [...] RBC (Bld) [#/Vol] 5.09 10 6/uL 4.20-5.40 [facility] RBC (Bld) [#/Vol] Erythrocytes [#/volu me] in Blood by Automated count 4.20-5.40 [facility] Serum or plasma albumin/glob ulin mass ratioon 06-15-2024 Albumin/Globulin [Mass ratio] 0.9 {ratio} [facility] Albumin/Globulin [Mass ratio] Serum or plasma albumin/globulin mass ratio [facility] Serum or plasma anion gap de terminationon 06-15-2024 Anion gap [Moles/Vol] 13.5 [facility] Anion gap [Moles/Vol] Serum or plasma an ion gap determination [facility] Trichomonas vaginalis DNA [P resence] in Specimen by SURI with probe detectionOrdered By: Casandra Hassan on 06-15-2024 T. vaginalis DNA SURI+probe Ql (Unsp spec) Negative Negative [facility] Comment on above: Performed at: =[address] [id number] Director: Monse Cardona MD, Phone: [phone] T. vaginalis DNA SURI+probe Ql (Unsp spec) Trichomonas vaginalis DNA [Presence] in Specimen by SURI with probe detection Negative [facility] Comment on above: Performed at: [address] [place] [id number] Director: Monse Cardona MD, Phone: [phone] Urine Cultureon 06-15-2024 Bacteria identified Cx Nom (U) ORGANISM: Escherichia coli (ESBL) (O:ESCCOLESBL) [place] Count >100,000 Aerobic RENATE Charge (NMIC56) -- [...] RESISTANT TO ALL B-LACTAM DRUGS. PERFORMED BY: [facility] [address] [place] [address] PATHOLOGIST MACHINE SETTER NESHA MAIER M.D. Normal [facility] Comment on above: Performed By: #### C UU #### [facility] [address] #### GCCHLAMTRI #### [facility] , Urine [...] Center Comment on above: Performed at: [employer] [address] [id number] Director: Cassius Zhong PhD, Phone: [phone] Iron [Mass/Vol] 76.0 ug/dL 50.0-170.0 [facility] Basophils/100 WBC (Bld) 0.6 % 0.2-2.0 [facility] Basophils/100 WBC (Bld) Automated basophil % 0. 2-2.0 [facility] Buprenorphine [Presence] in Urineon 04-12-2024 Buprenorphine Ql (U) Negative NEGATIVE [facility] Comment on above: DRUG CLASS TEST SYST [...] 04-12-2024 Globulin (S) [Mass/Vol] 4.1 g/dL [facility] Globulin (S) [Mass/Vol] Serum globulin [...] [Mass/Vol] 3.3 g/dL Low 3.4-5.0 [facility] ALP [Catalytic activity/Vol] 75 U/L 46-116 [facility] ALT [Catalytic activity/Vol] 36 U/L 14-59 [facility] AST [Catalytic activity/Vol] 19 U/L 15-37 [facility] Bilirubin [Mass/Vol] 0.3 mg/dL 0.2-1.0 [facility] Calcium [Mass/Vol] 8.6 mg/dL 8.5-10.1 [facility] Chloride [Moles/Vol] 101 mmol/L 98-107 [facility] CO2 [Moles/Vol] 28.7 mmol/L 21.0-32.0 [facility] Creatinine [Mass/Vol] 0.70 mg/dL 0.55-1.02 [facility] GFR/1.73 sq M.predicted MDRD (S/P/Bld) [Vol rate/Area] mL/min/{1.73_m2} >=60 [facility] Glucose [Mass/Vol] 103 mg/dL 74-106 [facility] Potassium [Moles/Vol] 3.7 mmol/L 3.5-5.1 [facility] Protein [Mass/Vol] 7.4 g/dL 6.4-8.2 [facility] Sodium [Moles/Vol] 136 mmol/L 136-145 [facility] Urea nitrogen [Mass/Vol] 10.0 mg/dL 7.0-18.0 [facility] Urea nitrogen/Creatinine [Mass ratio] 14.3 mg/mg [facility] Bilirubin Ql (U) Negative NEGATIVE [facility] Glucose (U) [Mass/Vol] Negative NEGATIVE [facility] Ketones Ql (U) Negative NEGATIVE [facility] pH (U) 6.0 [pH] 5.0-9.0 [facility] Specific gravity (U) [Rel density] >=1.030 Abnormal 1.005-1.02 5 [facility] Urobilinogen Qn (U) 0.2 {Tamiko'U}/dL 0.2-1.0 [facility] Laboratory - Drug toxicology on 04-12-2024 Amphetamines Ql (U) Negative NEGATIVE [facility] Benzodiazepines Ql (U) Negative NEGATIVE [facility] Cocaine Ql (U) Negative NEGATIVE [facility] Opiates Ql (U) Negative NEGATIVE [facility] Phencyclidine Ql (U) Negative NEGATIVE [facility] Laboratory - Hematology and Cell countson 04-12-2024 [...] Ql (Urine sed) TRACE Abnormal NONE SEEN [facility] Nitrite Ql (U) Negative NEGATIVE [facility] [...] MCHC (RBC) [Mass/Vol] 30.6 g/dL 29.9-35.2 Fir [facility] MCHC (RBC) [Mass/Vol] MCHC [Mass/volume] by Automated count 29.9-35.2 [facility] MCV Auto (RBC) [Entitic vol] on 04-12-2024 MCV (RBC) [Entitic vol] 80.1 fL Low 81.0-99.0 [facility] MCV (RBC) [Entitic vol] MCV [Entitic vol ume] by Automated count Low 81.0-99.0 [facility] Methadone [Presence] in Urin e by Screen methodon 04-12-2024 Methadone Screen Ql (U) Negative NEGATIVE [facility] Methadone Screen Ql (U) Methadone [...] Monocytes/100 WBC (Bld) 4.7 % 1.7-12.0 [facility] Monocytes/100 WBC (Bld) Automated monocyte [...] 04-12 Acetaminophen Level <2.0 ug/mL Low 10.0-30.0 [facility] Eosinophils # (Auto) 0.1 10 3/uL 0.0-0.7 [facility] Ethyl Alcohol Level <3 mg/dL [facility] Comment on above: NOTE: 80 mg/dl is th e legal limit for a blood alcohol level Immature Granulocyte # (Auto) 0.03 10 3/uL 0.00-0.03 [facility] Salicylates Level <2.8 mg/dL <=19.9 [facility] Urine Bacteria SMALL #/HPF Abnormal NONE SEEN [facility] Urine Barbiturates Screen Negative NEGATIVE [facility] Urine Culture Reflexed YES [facility] Urine Marijuana (THC) Screen Negative NEGATIVE [facility] Urine Methamphetamines Screen Negative NEGATIVE [facility] Urine Occult Blood Negative NEGATIVE [facility] Urine Other Casts NONE SEEN #/LPF NONE SEEN [facility] Urine Other Crystals None Seen #/HPF None [...] RBC (Bld) [#/Vol] 4.73 10 6/uL 4.20-5.40 [facility] RBC (Bld) [#/Vol] Erythrocytes [#/volu me] in Blood by Automated count 4.20-5.40 [facility] Serum or plasma albumin/glob ulin mass ratioon 04-12-2024 Albumin/Globulin [Mass ratio] 0.8 {ratio} [facility] Albumin/Globulin [Mass ratio] Serum or plasma albumin/globulin mass ratio [facility] Serum or plasma anion gap de terminationon 04-12-2024 Anion gap [Moles/Vol] 10.0 mmol/L [facility] Anion gap [Moles/Vol] Serum or plasma an [...] Basophils/100 WBC (Bld) 0.5 % 0.2-2.0 [facility] Eosinophils/100 WBC Auto (Bl d)on [...] 11-03-2023 Globulin (S) [Mass/Vol] 4.0 g/dL [facility] Hematocrit Auto (Bld) [Volum e [...] fourteen high-risk HPV types (16,18,31,33,35,39,45,51,52,56,58,59,66,68)without differentiation.Performed at: =[address] [id number] Director: Monse Cardona MD, Phone: [phone] at: [facility] [address] [id number] Director: Monse Cardona MD, Phone: [phone] Iron binding capacity [Mass/ volume] in Serum or Plasmaon 11-03-2023 Iron binding capacity [Mass/Vol] 512.0 ug/dL 250.0-450. 0 [facility] Iron saturation [Mass Fracti on] in Serum or Plasmaon 11-03-2023 Iron saturation [Mass fraction] 2.7 % [facility] Laboratory - Chemistry and C hemistry - challengeon 11-03-2023 Albumin [Mass/Vol] 3.1 g/dL 3.4-5.0 [facility] ALP [Catalytic activity/Vol] 63 U/L 46-116 [facility] ALT [Catalytic activity/Vol] 29 U/L 14-59 [facility] AST [Catalytic activity/Vol] 18 U/L 15-37 [facility] Bilirubin [Mass/Vol] 0.2 mg/dL 0.2-1.0 [facility] Calcium [Mass/Vol] 8.7 mg/dL 8.5-10.1 [facility] Chloride [Moles/Vol] 102 mmol/L 98-107 [facility] CO2 [Moles/Vol] 27.6 mmol/L 21.0-32.0 [facility] Creatinine [Mass/Vol] 0.70 mg/dL 0.55-1.02 [facility] Ferritin [Mass/Vol] 6.0 ng/mL 8.0-252.0 [facility] GFR/1.73 sq M.predicted MDRD (S/P/Bld) [Vol rate/Area] mL/min/{1.73_m2} >=60 [facility] Glucose [Mass/Vol] 103 mg/dL 74-106 [facility] Iron [Mass/Vol] 14.0 ug/dL 50.0-170.0 [facility] Potassium [Moles/Vol] 3.8 mmol/L 3.5-5.1 [facility] Protein [Mass/Vol] 7.1 g/dL 6.4-8.2 [facility] Sodium [Moles/Vol] 139 mmol/L 136-145 [facility] Urea nitrogen [Mass/Vol] 11.0 mg/dL 7.0-18.0 [...] MCHC (RBC) [Mass/Vol] 29.9 g/dL 29.9-35.2 Fir [facility] MCV Auto (RBC) [Entitic vol] on 11-03-2023 MCV (RBC) [Entitic vol] 82.9 fL 81.0-99.0 [facility] Monocytes Auto (Bld) [#/Vol] on 11-03-2023 Monocytes (Bld) [#/Vol] 0.4 10 3/uL 0.3-0.8 [facility] Monocytes/100 WBC Auto (Bld) on 11-03-2023 Monocytes/100 WBC (Bld) 5.6 % 1.7-12.0 [facility] Neutrophils Auto (Bld) [#/Vo l]on 11-03-2023 Neutrophils (Bld) [#/Vol] 4.3 10 3/uL 1.4-6.5 [facility] Neutrophils/100 WBC Auto (Bl d)on 11-03-2023 Neutrophils/100 WBC (Bld) 58.5 % 43.0-75.0 [facility] No Panel Informationon 11-02 Eosinophils # (Auto) 0.1 10 3/uL 0.0-0.7 [facility] Immature Granulocyte # (Auto) 0.03 10 3/uL 0.00-0.03 [facility] HPV High Risk Other Comment Note . [facility] Comment on above: TESTS RESULT FLAG UN ITS REF RANGE LAB -DIAGNOSIS: 02 NEGATIVE FOR INTRAEPITHELIAL LESION OR MALIGNANCY.Specimen adequacy: 02 Satisfactory for evaluation. Endocervical and/or squamous metaplastic cells (endocervical component) are present.Performed by: 02 [employer] User Experience Strategist (ASCP). 02Note: Note 02 The Pap smear [...] High <-Panic Low,>-Panic High,A-Abnormal,AA-Critical Abnormal ------Performed at:[address] [id number] Monse Cardona MD, Reference Lab Test Patient Age Note . [facility] Comment on above: TESTS RESULT FLAG UN ITS REF RANGE LAB - Clinician Provided Cytology Information Source.............Cervix;Endocervix No. of containers..01 ThinPrep VialAge Algo ACOG Elise... FLAG LEGEND: L-Low Normal,H-High Normal,LL-Alert Low,HH-Alert High <-Panic Low,>-Panic High,A-Abnormal,AA-Critical Abnormal ------Performed at:01 =[facility] [address] [facility] [place] [address] Monse Cardona MD, Platelet mean volume Auto (B ld) [Entitic vol]on 11-03-2023 Platelet mean volume (Bld) [Entitic vol] 9.6 fL 9.5-13.5 [facility] Platelets Auto (Bld) [#/Vol] on 11-03-2023 Platelets (Bld) [#/Vol] 323 10 3/uL 150-450 [facility] RBC Auto (Bld) [#/Vol]on RBC (Bld) [#/Vol] 3.15 10 6/uL 4.20-5.40 [facility] Serum or plasma albumin/glob ulin mass ratioon 11-03-2023 Albumin/Globulin [Mass ratio] 0.8 {ratio} [facility] Serum or plasma anion gap de terminationon 11-03-2023 Anion gap [Moles/Vol] 13.2 mmol/L Fi [facility] Basophils Auto (Bld) [#/Vol] on 10-30-2023 Basophils (Bld) [#/Vol] 0.0 10 3/uL 0.0-0.1 [facility] Basophils/100 WBC Auto (Bld) on 10-30-2023 Basophils/100 WBC (Bld) 0.6 % 0.2-2.0 [facility] Eosinophils/100 WBC Auto (Bl d)on [...] Calcium [Mass/Vol] 8.5 mg/dL 8.5-10.1 [facility] Chloride [Moles/Vol] 101 mmol/L 98-107 [facility] CO2 [Moles/Vol] 28.8 mmol/L 21.0-32.0 [facility] Creatinine [Mass/Vol] 0.62 mg/dL 0.55-1.02 [facility] GFR/1.73 sq M.predicted MDRD (S/P/Bld) [Vol rate/Area] mL/min/{1.73_m2} >=60 [facility] Glucose [Mass/Vol] 104 mg/dL 74-106 [facility] Potassium [Moles/Vol] 4.0 mmol/L 3.5-5.1 [facility] Sodium [Moles/Vol] 137 mmol/L 136-145 [facility] Urea nitrogen [Mass/Vol] 8.0 mg/dL 7.0-18.0 [...] 10-30-2023 MCHC (RBC) [Mass/Vol] 29.7 g/dL 29.9-35.2 [facility] MCV Auto (RBC) [Entitic vol] on 10-30-2023 MCV (RBC) [Entitic vol] 84.2 fL 81.0-99.0 [facility] Monocytes Auto (Bld) [#/Vol] on 10-30-2023 Monocytes (Bld) [#/Vol] 0.3 10 3/uL 0.3-0.8 [facility] Monocytes/100 WBC Auto (Bld) on 10-30-2023 Monocytes/100 WBC (Bld) 3.7 % 1.7-12.0 [facility] Neutrophils Auto (Bld) [#/Vo l]on 10-30-2023 Neutrophils (Bld) [#/Vol] 4.6 10 3/uL 1.4-6.5 [facility] Neutrophils/100 WBC Auto (Bl d)on 10-30-2023 Neutrophils/100 WBC (Bld) 63.9 % 43.0-75.0 [facility] No Panel Informationon 10-29 Eosinophils # (Auto) 0.1 10 3/uL 0.0-0.7 [facility] Immature Granulocyte # (Auto) 0.03 10 [...] RBC (Bld) [#/Vol] 3.16 10 6/uL 4.20-5.40 [facility] Serum or plasma anion gap de terminationon 10-30-2023 Anion gap [Moles/Vol] 11.2 mmol/L Fi [facility] HCG ( test) IA.rapi d Ql (U)on 10-06-2023 HCG ( test) Ql (U) Negative NEGATIVE [facility] COVID + FLU Quick Testingon 07-07-2023 SARS-CoV-2 (COVID-19) RNA SURI+probe Ql (Unsp spec) Negative [facility] Other COVID + FLU Quick Testing Negative [facility] Other Alanine aminotransferase [En zymatic activity/volume] in [...] on 07-03-2023 Bilirubin [Mass/Vol] 0.4 mg/dL 0.3-1.0 [facility] Calcium [Mass/volume] in Ser um or PlasmaOrdered By: Celio Mullins on 07-03-2023 Calcium [Mass/Vol] 9.4 mg/dL 8.6-10.3 [facility] Carbon dioxide, total [Moles /volume] in Serum or PlasmaOrdered By: Celio Mullins 07-03-2023 CO2 [Moles/Vol] 30.1 mmol/L 21.0-31.0 [facility] Chloride [Moles/volume] in S marta or PlasmaOrdered By: Celio Mullins on 07-03-2023 Chloride [Moles/Vol] 105 mmol/L 98-107 [facility] Cholesterol [Mass/volume] in Serum or PlasmaOrdered By: Celio Mullins on 07-03-2023 Cholesterol [Mass/Vol] 126 mg/dL 140-200 [facility] Comment on above: Chol less than 200 [...] on 07-03-2023 Creatinine [Mass/Vol] 0.63 mg/dL 0.60-1.20 [facility] Globulin Calc (S) [Mass/Vol] Ordered By: Celio Mullins on 07-03-2023 Globulin (S) [Mass/Vol] 3.1 g/dL [facility] Glucose [Mass/volume] in Ser um or PlasmaOrdered By: Celio Mullins on 07-03-2023 Glucose [Mass/Vol] 97 mg/dL 70-100 [facility] Comment on above: ADA recommended refe [...] on 07-03-2023 Potassium [Moles/Vol] 4.3 mmol/L 3.5-5.1 [facility] Protein [Mass/volume] in Ser um or PlasmaOrdered By: Celio Mullins on 07-03-2023 Protein [Mass/Vol] 7.5 g/dL 6.4-8.9 [facility] Serum or plasma albumin/glob ulin mass ratioOrdered By: Celio Mullins on 07-03-2023 Albumin/Globulin [Mass ratio] 1.4 {ratio} [facility] Serum or plasma anion gap de terminationOrdered By: Celio Mullins on 07-03-2023 Anion gap [Moles/Vol] 10.2 mmol/L 6.0-15.0 [facility] Serum or plasma high density lipoprotein (HDL) cholesterol measurementOrdered By: Celio Mullins on 07-03-2023 Cholesterol in HDL [Mass/Vol] 39 mg/dL 23- [facility] Comment on [...] Sodium [Moles/Vol] 141 mmol/L 136-145 [facility] Triglyceride [Mass/volume] i n Serum or PlasmaOrdered By: Celio Mullins on 07-03-2023 Triglyceride [Mass/Vol] 92 mg/dL 0-149 [facility] Comment on above: TRIG ATP III CLASSIF ICATIONTRIG less than 150 mg/dL NormalTRIG 150-199 mg/dL Borderline highTRIG 200-500 mg/dL High TRIG greater than 500 mg/dL Very highStandard traceable to the Center for Disease Conrtrol and Prevention (CDC) test method. Urea nitrogen [Mass/volume] in Serum or PlasmaOrdered By: Celio Mullins on 07-03-2023 Urea nitrogen [Mass/Vol] 13 mg/dL 03-11 [facility] Alanine aminotransferase [...] High Risk <90 Moderate Risk <90Performed at: [employer] [id number] Director: Jeanna Case MD, Phone: [phone] Aspartate aminotransferase [ Enzymatic activity/volume] in Serum or PlasmaOrdered By: Celio Mullins 07-01-2023 AST [Catalytic activity/Vol] 19 U/L 13-39 [facility] Bilirubin.total [Mass/volume ] in Serum or PlasmaOrdered By: Celio Mullins 07-01-2023 Bilirubin [Mass/Vol] 0.4 mg/dL 0.3-1.0 [facility] Calcium [Mass/volume] in Ser um or PlasmaOrdered By: Celio Mullins 07-01-2023 Calcium [Mass/Vol] 9.8 mg/dL 8.6-10.3 [facility] Carbon dioxide, total [Moles /volume] in Serum or PlasmaOrdered By: Celio Mullins on 07-01-2023 CO2 [Moles/Vol] 25.3 mmol/L 21.0-31.0 [facility] Chloride [Moles/volume] in S marta or PlasmaOrdered By: Celio Mullins 07-01-2023 Chloride [Moles/Vol] 105 mmol/L 98-107 [facility] Creatinine [Mass/volume] in Serum or PlasmaOrdered By: Celio Mullins on 07-01-2023 Creatinine [Mass/Vol] 0.64 mg/dL 0.60-1.20 [facility] Globulin Calc (S) [Mass/Vol] Ordered By: Celio Mullins on 07-01-2023 Globulin (S) [Mass/Vol] 3.2 g/dL [facility] Glucose [Mass/volume] in Ser um or PlasmaOrdered By: Celio Mullins on 07-01-2023 Glucose [Mass/Vol] 95 mg/dL 70-100 [facility] Comment on above: ADA recommended refe [...] on 07-01-2023 Potassium [Moles/Vol] 3.8 mmol/L 3.5-5.1 [facility] Protein [Mass/volume] in Ser um or PlasmaOrdered By: Celio Mullins on 07-01-2023 Protein [Mass/Vol] 7.8 g/dL 6.4-8.9 [facility] Serum or plasma albumin/glob ulin mass ratioOrdered By: Celio Mullins on 07-01-2023 Albumin/Globulin [Mass ratio] 1.4 {ratio} [facility] Serum or plasma anion gap de terminationOrdered By: Celio Mullins on 07-01-2023 Anion gap [Moles/Vol] 11.5 mmol/L 6.0-15.0 [facility] Serum or plasma lipoprotein a measurement (moles/volume)Ordered [...] genetic factors on Lp(a) across ethnicities.Performed at: [employer] [id number] Director: Cassius Zhong PhD, Phone: [phone] Sodium [Moles/volume] in Ser um or PlasmaOrdered By: Celio Mullins on 07-01-2023 Sodium [Moles/Vol] 138 mmol/L 136-145 [facility] Urea nitrogen [Mass/volume] in Serum or PlasmaOrdered By: Celio Mullins on 07-01-2023 Urea nitrogen [Mass/Vol] 16 mg/dL 7-25 [facility] COVID Quick Testingon 2022 Result Negative [facility] Other SARS-CoV-2 (COVID-19) RNA NA A+probe Ql (Resp)on 02-11-2023 SARS-CoV-2 (COVID-19) RNA SURI+probe Ql (Unsp spec) Negative [facility] Other DHEA-SULFATEon 01-01-2023 DHEA-Sulfate 95.3 ug/dL Normal 84.8-378.0 [facility] Comment on above: Performed By: #### D RIMA #### [facility] [address] [address] [address] Kaushik Palomares FSHon 01-01-2023 FSH 4.6 mIU/mL Normal [facility] Comment on above: Result Comment: Adul t Female: Follicular phase 3.5 - 12.5 Ovulation phase 4.7 - 21.5 Luteal phase 1.7 - 7.7 Postmenopausal 25.8 - 134.8 Performed By: #### C BC #### [facility] [address] [place] [address] Dr. Kaushik Palomares LUTEINIZING HORMONE (LH)on 01-01-2023 LH 3.5 mIU/mL Normal [facility] Comment on above: Result Comment: Adul t Female: Follicular phase 2.4 - 12.6 Ovulation phase 14.0 - 95.6 Luteal phase 1.0 - 11.4 Postmenopausal 7.7 - 58.5 Performed By: #### L BCL #### [facility] [address] [place] [address] Dr. Kaushik Palomares CBC AUTO DIFFon 12-31-2022 BASO # 0.1 103/ul Normal 0.0-0.1 [facility] Comment on above: Performed By: #### C BC #### [facility] [address] [place] [address] Dr. Kaushik Palomares Basophils/100 WBC (Bld) 0.8 % Normal 0.2-2.0 [facility] Comment on above: Performed By: #### C BC #### [facility] [address] [place] [address] Dr. Kaushik Palomares EO # 0.1 103/ul Normal 0.0-0.7 [facility] Comment on above: Performed By: #### C BC #### [facility] [address] [place] [address] Dr. Kaushik Palomares Eosinophils/100 WBC (Bld) 1.7 % Normal 0.9-7.0 [facility] Comment on above: Performed By: #### C BC #### [facility] [address] [place] [address] Dr. Kaushik Palomares Erythrocyte distribution width (RBC) [Ratio] 12.8 % Normal 11.0-15.0 [facility] Comment on above: Performed By: #### C BC #### [facility] [address] [place] [address] Dr. Kaushik Palomares Hematocrit (Bld) [Volume fraction] 33.0 % Critically low 36.0-48.0 [facility] Comment on above: Performed By: #### C BC #### [facility] [address] [place] [address] Dr. Kaushik Palomares Hemoglobin (Bld) [Mass/Vol] 11.0 g/dL Critically low 12.0-16.0 [facility] Comment on above: Performed By: #### C BC #### [facility] [address] [place] [address] Dr. Kaushik Palomares IG # 0.03 10e3/ul Normal 0.00-0.03 [facility] Comment on above: Performed By: #### C BC #### [facility] [address] [place] [address] Dr. Kaushik Palomares IG % 0.5 % Normal 0.0-0.5 [facility] Comment on above: Performed By: #### C BC #### [facility] [address] [place] [address] Dr. Kaushik Palomares LYMPH # 2.4 103/ul Normal 1.2-3.8 [facility] Comment on above: Performed By: #### C BC #### [facility] [address] [place] [address] Dr. Kaushik Palomares Lymphocytes/100 WBC (Bld) 36.6 % Normal 20.5-60.0 [facility] Comment on above: Performed By: #### C BC #### [facility] [address] [place] [address] Dr. Kaushik Palomares MANUAL DIFF REQ NO Normal [facility] Comment on above: Performed By: #### C BC #### [facility] [address] [place] [address] Dr. Kaushik Palomares MCH (RBC) [Entitic mass] 29.0 pg Normal 26.7-34.0 [facility] Comment on above: Performed By: #### C BC #### [facility] [address] [place] [address] Dr. Kaushik Palomares MCHC (RBC) [Mass/Vol] 33.3 g/dL Normal 29.9-35.2 [facility] Comment on above: Performed By: #### C BC #### [facility] [address] [place] [address] Dr. Kaushik Palomares MCV (RBC) [Entitic vol] 87.1 fL Normal 81.0-99.0 [facility] Comment on above: Performed By: #### C BC #### [facility] [address] [place] [address] Dr. Kaushik Palomares MONO # 0.2 103/ul Critically low 0.3-0.8 [facility] Comment on above: Performed By: #### C BC #### [facility] [address] [place] [address] Dr. Kaushik Palomares Monocytes/100 WBC (Bld) 3.6 % Normal 1.7-12.0 [facility] Comment on above: Performed By: #### C BC #### [facility] [address] [place] [address] Dr. Kaushik Palomares NEUT # 3.7 103/ul Normal 1.4-6.5 [facility] Comment on above: Performed By: #### C BC #### [facility] [address] [place] [address] Dr. Kaushik Palomares Neutrophils/100 WBC (Bld) 56.8 % Normal 43.0-75.0 [facility] Comment on above: Performed By: #### C BC #### [facility] [address] [place] [address] Dr. Kaushik Palomares Platelet mean volume (Bld) [Entitic vol] 9.8 fL Normal 9.5-13.5 [facility] Comment on above: Performed By: #### C BC #### [facility] [address] [place] [address] Dr. Kaushik Palomares PLT 234 103/ul Normal 150-450 [facility] Comment on above: Performed By: #### C BC #### [facility] [address] [place] [address] Dr. Kaushik Palomares RBC 3.79 106/ul Critically low 4.20-5.40 [place] Comment on above: Performed By: #### C BC #### [facility] [address] [place] [address] Dr. Kaushik Palomares WBC 6.5 103/ul Normal 4.0-11.0 [facility] Comment on above: Performed By: #### C BC #### [facility] [address] [place] [address] Dr. Kaushik Palomares FREE T4on 12-31-2022 Free T4 [Mass/Vol] 0.79 ng/dL Normal 0.76-1.46 [facility] Comment on above: Performed By: #### F T4 #### [facility] [address] [place] [address] Dr. Kaushik Palomares GLYCOHEMOGLOBIN A1Con 2022 ADA RECOMMENDATION SEE BELOW Normal [facility] Comment on above: Result Comment: ADA RECOMMENDED LIMIT 4.0 - 6.0 ADA THERAPEUTIC TARGET < 7.0 ACTION SUGGESTED > 7.0 Performed By: #### A 1C #### [facility] [address] [place] [address] Dr. Kaushik Palomares Glucose [Mass/Vol] 111 mg/dL Normal [facility] Comment on above: Performed By: #### A 1C #### [facility] [address] [place] [address] Dr. Kaushik Palomares HbA1c (Bld) [Mass fraction] 5.5 % Normal 4.5-6.2 [facility] Comment on above: Performed By: #### A 1C #### [facility] [address] [place] [address] Dr. Kaushik Palomares TSHon 12-31-2022 TSH 1.114 uIU/mL Normal 0.358-3.74 0 [facility] Comment on above: Performed By: #### C BC #### [facility] [address] [place] [address] Dr. Kaushik Palomares US PELVIS AND TRANSVAGon [...] by: SUGEY MACDONALD Date: 2022-11-26 15:58 Normal [facility] XR SACRUM_COCCYXon 3 XR SACRUM_COCCYX EXAMINATION: XR [...] SUGEY MACDONALD Date: 2022-11-08 10:01 Normal [facility] PAP ACOG PANEL 2: 30 to 65on 11-05-2022 . . Normal [facility] Comment on above: Result Comment: Perf ormed at: WB Performed By: #### C BC #### [facility] [address] [place] [address] Dr. Kaushik Palomares Age Gdln ACOG Testing 30-65 Normal [facility] Comment on above: Performed By: #### C BC #### [facility] [address] [place] [address] Dr. Kaushik Palomares DIAGNOSIS: Comment Normal [facility] Comment on above: Result Comment: NEGA TIVE FOR INTRAEPITHELIAL LESION OR MALIGNANCY. Performed at: WB Performed By: #### C BC #### [facility] [address] [place] [address] Dr. Kaushik Palomares HPV Aptima Negative Normal Negative [facility] Comment on above: Result Comment: This nucleic acid amplification test detects fourteen high-risk HPV types (16,18,31,33,35,39,45,51,52,56,58,59,66,68) without differentiation. Performed at: =G Performed By: #### C BC #### [facility] [address] [place] [address] Dr. Kaushik Palomares HPV Genotype Reflex Comment Normal [facility] Comment on above: Result Comment: Crit eria not met, HPV Genotype not performed. Performed at: WB Performed By: #### C BC #### [facility] [address] [place] [address] Dr. Kaushik Palomares Methodology: Comment Normal [facility] Comment on above: Result Comment: This liquid based ThinPrep(R) pap test was screened with the use of an image guided system. Performed at: WB Performed By: #### C BC #### [facility] [address] [place] [address] Dr. Kaushik Palomares Note: Comment Normal [facility] Comment on above: Result Comment: The Pap smear is a screening test designed to aid in the detection of premalignant and malignant conditions of the uterine cervix. It is not a diagnostic procedure and should not be used as the sole means of detecting cervical cancer. Both false-positive and false-negative reports do occur. . Performed at: WB Performed By: #### C BC #### [facility] [address] [place] [address] Dr. Kaushik Palomares Performed by: Comment Normal [facility] Comment on above: Result Comment: Robi Graham, Online User Experience Strategist (ASCP) Performed at: WB Performed By: #### C BC #### [facility] [address] [place] [address] Dr. Kaushik Palomares Specimen adequacy: Comment Normal [facility] Comment on above: Result Comment: Sati sfactory for evaluation. Endocervical and/or squamous metaplastic cells (endocervical component) are present. Performed at: WB Performed By: #### C BC #### [facility] [address] [place] [address] Dr. Kaushik Palomares COVID/FLU RT-PCRon 2 SARS-CoV-2 (COVID-19) RNA SURI+probe Ql (Unsp spec) Negative [employer] Other COVID/FLU RT-PCR Negative [employer] Other HCG-BETA SUBUNIT QUANTon hCG,Beta Subunit,Qnt,Serum <1 Normal [facility] Comment on above: Result Comment: Fema le (Non-) 0 - 5 (Postmenopausal) 0 - 8 . Female () Weeks of Gestation 3 6 - 71 4 10 - 750 5 898 - 6760 6 158 - 47533 7 [phone] -[phone] 8 [id number] 9 [id number] -[id number] 10 31849 -[phone] 12 80144 -435262 14 75379 - 39060 15 43205 - 58718 16 0135 - 35986 17 5600 - 70091 18 9747 - 53792 Rg ECLIA methodology Performed By: #### H CGSUB #### [facility] [address] [place] [address] Dr. Kaushik Palomares T4 LABCORPon 01-22-2022 T4 [Mass/Vol] 7.8 ug/dL Normal 4.5-12.0 [facility] Comment on above: Performed By: #### T 4LC #### [facility] [address] [place] [address] Dr. Kaushik Palomares CBC AUTO DIFFon 01-21-2022 BASO # 0.1 103/ul Normal 0.0-0.1 [facility] Comment on above: Performed By: #### C BC #### [facility] [address] [address] [address] Kaushik Palomares Basophils/100 WBC (Bld) 0.6 % Normal 0.2-2.0 [facility] Comment on above: Performed By: #### C BC #### [facility] [address] [place] [address] Dr. Kaushik Palomares EO # 0.1 103/ul Normal 0.0-0.7 [facility] Comment on above: Performed By: #### C BC #### [facility] [address] [place] [address] Dr. Kaushik Palomares Eosinophils/100 WBC (Bld) 1.2 % Normal 0.9-7.0 [facility] Comment on above: Performed By: #### C BC #### [facility] [address] [place] [address] Dr. Kaushik Palomares Erythrocyte distribution width (RBC) [Ratio] 13.3 % Normal 11.0-15.0 [facility] Comment on above: Performed By: #### C BC #### [facility] [address] [place] [address] Dr. Kaushik Palomares Hematocrit (Bld) [Volume fraction] 40.0 % Normal 36.0-48.0 [facility] Comment on above: Performed By: #### C BC #### [facility] [address] [place] [address] Dr. Kaushik Palomares Hemoglobin (Bld) [Mass/Vol] 12.7 g/dL Normal 12.0-16.0 [facility] Comment on above: Performed By: #### C BC #### [facility] [address] [place] [address] Dr. Kaushik Palomares IG # 0.02 10e3/ul Normal 0.00-0.03 [facility] Comment on above: Performed By: #### C BC #### [facility] [address] [place] [address] Dr. Kaushik Palomares IG % 0.2 % Normal 0.0-0.5 [facility] Comment on above: Performed By: #### C BC #### [facility] [address] [place] [address] Dr. Kaushik Palomares LYMPH # 3.0 103/ul Normal 1.2-3.8 [facility] Comment on above: Performed By: #### C BC #### [facility] [address] [place] [address] Dr. Kaushik Palomares Lymphocytes/100 WBC (Bld) 32.9 % Normal 20.5-60.0 [facility] Comment on above: Performed By: #### C BC #### [facility] [address] [place] [address] Dr. Kaushik Palomares MANUAL DIFF REQ NO Normal [place] Comment on above: Performed By: #### C BC #### [facility] [address] [place] [address] Dr. Kaushik Palomares MCH (RBC) [Entitic mass] 28.5 pg Normal 26.7-34.0 [facility] Comment on above: Performed By: #### C BC #### [facility] [address] [place] [address] Dr. Kaushik Palomares MCHC (RBC) [Mass/Vol] 31.8 g/dL Normal 29.9-35.2 [facility] Comment on above: Performed By: #### C BC #### [facility] [address] [place] [address] Dr. Kaushik Palomares MCV (RBC) [Entitic vol] 89.7 fL Normal 81.0-99.0 [facility] Comment on above: Performed By: #### C BC #### [facility] [address] [place] [address] Dr. Kaushik Palomares MONO # 0.5 103/ul Normal 0.3-0.8 [facility] Comment on above: Performed By: #### C BC #### [facility] [address] [place] [address] Dr. Kaushik Palomares Monocytes/100 WBC (Bld) 5.1 % Normal 1.7-12.0 [facility] Comment on above: Performed By: #### C BC #### [facility] [address] [place] [address] Dr. Kaushik Palomares NEUT # 5.4 103/ul Normal 1.4-6.5 [facility] Comment on above: Performed By: #### C BC #### [facility] [address] [place] [address] Dr. Kaushik Palomares Neutrophils/100 WBC (Bld) 60.0 % Normal 43.0-75.0 [facility] Comment on above: Performed By: #### C BC #### [facility] [address] [place] [address] Dr. Kaushik Palomares Platelet mean volume (Bld) [Entitic vol] 9.3 fL Critically low 9.5-13.5 [facility] Comment on above: Performed By: #### C BC #### [facility] [address] [place] [address] Dr. Kaushik Palomares PLT 221 103/ul Normal 150-450 [facility] Comment on above: Performed By: #### C BC #### [facility] [address] [place] [address] Dr. Kaushik Palomares RBC 4.46 106/ul Normal 4.20-5.40 [facility] Comment on above: Performed By: #### C BC #### [facility] [address] [place] [address] Dr. Kaushik Palomares WBC 9.0 103/ul Normal 4.0-11.0 [facility] Comment on above: Performed By: #### C BC #### [facility] [address] [place] [address] Dr. Kaushik Palomares GLYCOHEMOGLOBIN A1Con 2021 ADA RECOMMENDATION SEE BELOW Normal [facility] Comment on above: Result Comment: ADA RECOMMENDED LIMIT 4.0 - 6.0 ADA THERAPEUTIC TARGET < 7.0 ACTION SUGGESTED > 7.0 Performed By: #### C BC #### [facility] [address] [place] [address] Dr. Kaushik Palomares Glucose [Mass/Vol] 94 mg/dL Normal [facility] Comment on above: Performed By: #### C BC #### [facility] [address] [place] [address] Dr. Kaushik Palomares HbA1c (Bld) [Mass fraction] 4.9 % Normal 4.5-6.2 [facility] Comment on above: Performed By: #### C BC #### [facility] [address] [place] [address] Dr. Kaushik Palomares LIPID PROFILEon 01-21-2022 CHOL-HDL RATIO NORM SEE BELOW Normal [facility] Comment on above: Result Comment: 3.3 - 4.4 LOW RISK 4.4 - 7.1 AVERAGE RISK 7.1 - 11.0 MODERATE RISK >11.0 HIGH RISK Performed By: #### L IPID, CMP, TSH #### [facility] [address] [place] [address] Dr. Kaushik Palomares Cholesterol [Mass/Vol] 168 mg/dL Normal <=200 Th [facility] Comment on above: Performed By: #### L IPID, CMP, TSH #### [facility] [address] [place] [address] Dr. Kaushik Palomares Cholesterol in HDL [Mass/Vol] 41 mg/dL Normal 40-60 [facility] Comment on above: Performed By: #### L IPID, CMP, TSH #### [facility] [address] [place] [address] Dr. Kaushik Palomares Cholesterol in LDL [Mass/Vol] 90.2 mg/dL Normal [facility] Comment on above: Performed By: #### L IPID, CMP, TSH #### [facility] [address] [place] [address] Dr. Kaushik Palomares Cholesterol.total/Mali sterol in HDL [Mass ratio] 4.1 {ratio} Normal [facility] Comment on above: Performed By: #### L IPID, CMP, TSH #### [facility] [address] [place] [address] Dr. Kaushik Palomares HDL NORMAL > or = 60 mg/dl - LO W CARDIOVASCULAR RISK <40 mg/dl - HIGH CARDIOVASCULAR RISK Normal [facility] Comment on above: Performed By: #### L IPID, CMP, TSH #### [facility] [address] [place] [address] Dr. Kaushik Palomares LDL CALC NORMAL SEE BELOW Normal [facility] Comment on above: Result Comment: <100 mg/dl OPTIMAL 100 - 129 mg/dl NEAR OR ABOVE OPTIMAL 130 - 159 mg/dl BORDERLINE HIGH 160 - 189 mg/dl HIGH >190 mg/dl VERY HIGH Performed By: #### L IPID, CMP, TSH #### [facility] [address] [place] [address] Dr. Kaushik Palomares Triglyceride [Mass/Vol] 184 mg/dL Critically high <=150 [facility] Comment on above: Performed By: #### L IPID, CMP, TSH #### [facility] [address] [address] [address] Kaushik Palomares VLDL CALC 36.8 mg/dL Normal [facility] Comment on above: Performed By: #### L IPID, CMP, TSH #### [facility] [address] [place] [address] Dr. Kaushik Palomares MICROALBUMIN, RAND URon mALB 2.0 mg/L Normal <=30.0 [facility] Comment on above: Performed By: #### C BC #### [facility] [address] [place] [address] Dr. Kaushik Palomares PROF 14(COMP METB)on 022 Albumin [Mass/Vol] 3.7 g/dL Normal 3.4-5.0 [facility] Comment on above: Performed By: #### L IPID, CMP, TSH #### [facility] [address] [place] [address] Dr. Kaushik Palomares Albumin/Globulin [Mass ratio] 0.9 {ratio} Normal [facility] Comment on above: Performed By: #### L IPID, CMP, TSH #### [facility] [address] [place] [address] Dr. Kaushik Palomares ALP [Catalytic activity/Vol] 53 U/L Normal 46-116 [facility] Comment on above: Performed By: #### L IPID, CMP, TSH #### [facility] [address] [place] [address] Dr. Kaushik Palomares ALT [Catalytic activity/Vol] 44 U/L Normal 14-59 [facility] Comment on above: Performed By: #### L IPID, CMP, TSH #### [facility] [address] [place] [address] Dr. Kaushik Palomares Anion gap [Moles/Vol] 6.8 mmol/L Normal [facility] Comment on above: Performed By: #### L IPID, CMP, TSH #### [facility] [address] [place] [address] Dr. Kaushik Palomares AST [Catalytic activity/Vol] 22 U/L Normal 15-37 [facility] Comment on above: Performed By: #### L IPID, CMP, TSH #### [facility] [address] [place] [address] Dr. Kaushik Palomares Bilirubin [Mass/Vol] 0.3 mg/dL Normal 0.2-1.0 [facility] Comment on above: Performed By: #### L IPID, CMP, TSH #### [facility] [address] [place] [address] Dr. Kaushik Palomares Calcium [Mass/Vol] 9.2 mg/dL Normal 8.5-10.1 [facility] Comment on above: Performed By: #### L IPID, CMP, TSH #### [facility] [address] [place] [address] Dr. Kaushik Palomares Chloride [Moles/Vol] 102 mmol/L Normal 98-107 [facility] Comment on above: Performed By: #### L IPID, CMP, TSH #### [facility] [address] [place] [address] Dr. Kaushik Palomares CO2 [Moles/Vol] 31.4 mmol/L Normal 21.0-32.0 [facility] Comment on above: Performed By: #### L IPID, CMP, TSH #### [facility] [address] [place] [address] Dr. Kaushik Palomares Creatinine [Mass/Vol] 0.71 mg/dL Normal 0.55-1.02 [facility] Comment on above: Performed By: #### L IPID, CMP, TSH #### [facility] [address] [address] [address] Kaushik Palomares EGFR-AF ANGOLAN >60 Normal >=60 [facility] Comment on above: Performed By: #### L IPID, CMP, TSH #### [facility] [address] [address] [address] Kaushik Palomares EGFR-NON AF ANGOLAN >60 Normal >=60 [facility] Comment on above: Performed By: #### L IPID, CMP, TSH #### [facility] [address] [address] [address] Kaushik Palomares Globulin (S) [Mass/Vol] 4.2 g/dL Normal [facility] Comment on above: Performed By: #### L IPID, CMP, TSH #### [facility] [address] [address] [address] Kaushik Palomares Glucose [Mass/Vol] 93 mg/dL Normal 74-106 [facility] Comment on above: Performed By: #### L IPID, CMP, TSH #### [facility] [address] [address] [address] Kaushik Palomares Potassium [Moles/Vol] 4.2 mmol/L Normal 3.5-5.1 [facility] Comment on above: Performed By: #### L IPID, CMP, TSH #### [facility] [address] [address] [address] Kaushik Palomares Protein [Mass/Vol] 7.9 g/dL Normal 6.4-8.2 [facility] Comment on above: Performed By: #### L IPID, CMP, TSH #### [facility] [address] [address] [address] Kaushik Palomares Sodium [Moles/Vol] 136 mmol/L Normal 136-145 [facility] Comment on above: Performed By: #### L IPID, CMP, TSH #### [facility] [address] [address] [address] Kaushik Palomares Urea nitrogen [Mass/Vol] 11.0 mg/dL Normal 7.0-18.0 [facility] Comment on above: Performed By: #### L IPID, CMP, TSH #### [facility] [address] [address] [address] Kaushik Palomares Urea nitrogen/Creatinine [Mass ratio] 15.5 mg/mg Normal [facility] Comment on above: Performed By: #### L IPID, CMP, TSH #### [facility] [address] [address] [address] Kaushik Palomares TSHon 01-21-2022 TSH 1.298 uIU/mL Normal 0.358-3.74 0 [facility] Comment on above: Performed By: #### C BC #### [facility] [address] [address] [address] Kaushik Palomares TSH RANGE SEE BELOW Normal [facility] Comment on above: Result Comment: <0.3 4 UIU/ml HYPERTHYROID 0.34-5.60 UIU/ml EUTHYROID >5.60 UIU/ml HYPOTHYROID Performed By: #### C BC #### [facility] [address] [address] [address] Kaushik Palomares COVID Quick Testingon 2020 Result Negative [employer] Other Quick Strepon 06-17-2021 S. pyogenes Org specific cx Ql (Throat) Negative [employer] Other Quick Strep [employer] Other Urinalysis - AUTOMATEDon Appearance (U) cloudy [facility] Other Bilirubin Ql (U) Negative [employer] Other Color (U) yellow [employer] Other Glucose Ql (U) Negative [facility] Other Hemoglobin Ql (U) large [employer] Other Ketones Ql (U) Negative [facility] Other Leukocyte esterase Test strip Ql (U) trace [employer] Other Nitrite Ql (U) Positive [facility] Other pH (U) 5.5 [pH] [employer] Other Protein Ql (U) 100 [facility] Other Specific gravity (U) [Rel density] 1.025 [place] [employer] Other Urobilinogen (U) [Mass/Vol] 0.2 mg/dL [place] [employer] Other Urinalysis - AUTOMATED No rt [employer] Other Urine Cultureon 05-31-2021 Urine Culture >100,000 [employer] Other Urine Culture <16 [employer] Other Urine Culture >16 [employer] Other Urine Culture <4 [employer] Other Urine Culture 8 [employer] Other Urine Culture <2 [employer] Other Urine Culture <1 [employer] Other Urine Culture >2 [employer] Other Urine Culture <0.5 [employer] Other Urine Culture >8 [employer] Other Urine Culture >4 [employer] Other Urine Culture <32 [employer] Other Urine Culture >2/38 [employer] Other Vital Signs Date Time Vital Sign Value Performing Clinician Trena min 06-03-2025 10:15-0400 Body height 164.08 cm Manisha Marc APRN Work Phone: [facility] [facility] 06-03-2025 10:15-0400 Body mass index (BMI) [Ratio] 56.7 kg/m2 Manisha Barclayeliudmarycarmenr PRESIDENT & CEO Work Phone: [facility] 06-03-2025 10:15-0400 Body weight 152.7 kg Manisha Keaner PRESIDENT & CEO Work Phone: [facility] 06-03-2025 10:15-0400 Diastolic blood pressure 81 mm[Hg] Manisha Barclayeliudacher PRESIDENT & CEO Work Phone: [facility] 06-03-2025 10:15-0400 Heart rate 87 /min Manisha Barclayeliudmarycarmenr PRESIDENT & CEO Work Phone: [facility] 06-03-2025 10:15-0400 Respiratory rate 18 /min Manisha Barclayaustinr PRESIDENT & CEO Work Phone: [facility] 06-03-2025 10:15-0400 Systolic blood pressure 137 mm[Hg] Manisha Barclayeliudmarycarmenr PRESIDENT & CEO Work Phone: [facility] 05-25-2025 15:06-0400 Body height 162.56 cm Manisha Barclayeliudmarycarmenr PRESIDENT & CEO Work Phone: [facility] 05-25-2025 15:06-0400 Body mass index (BMI) [Ratio] 59.2 kg/m2 Manisha Parksacher PRESIDENT & CEO Work Phone: [facility] 05-25-2025 15:06-0400 Body weight 156.48 kg Manisha Keaner PRESIDENT & CEO Work Phone: [facility] 05-25-2025 15:06-0400 Diastolic blood pressure 80 mm[Hg] Manisha Charlyacher PRESIDENT & CEO Work Phone: [facility] 05-25-2025 15:06-0400 Heart rate 105 /min Manisha Charlyacher PRESIDENT & CEO Work Phone: [facility] 05-25-2025 15:06-0400 Systolic blood pressure 120 mm[Hg] Manisha Rohrbacher PRESIDENT & CEO Work Phone: [facility] 05-25-2025 12:56-0400 Body height 164.47 cm Manisha Keanetad PRESIDENT & CEO Work Phone: [facility] 05-25-2025 12:56-0400 Body mass index (BMI) [Ratio] 56.9 kg/m2 Manisha Barclayeliudmarycarmentad PRESIDENT & CEO Work Phone: [facility] 05-25-2025 12:56-0400 Body weight 154.02 kg Manisha Barclayeliudmarycarmentad PRESIDENT & CEO Work Phone: [facility] 05-13-2025 10:46-0400 Body height 162.56 cm Manisha Barclayeliudmarycarmentad PRESIDENT & CEO Work Phone: [facility] 05-13-2025 10:46-0400 Body mass index (BMI) [Ratio] 59 kg/m2 Manisha Barclayfani PRESIDENT & CEO Work Phone: [facility] 05-13-2025 10:46-0400 Body temperature 96.6 [degF] Manisha Barclayfani PRESIDENT & CEO Work Phone: [facility] 05-13-2025 10:46-0400 Body weight 156.03 kg Manisha Keanetad PRESIDENT & CEO Work Phone: [facility] 05-13-2025 10:46-0400 Diastolic blood pressure 70 mm[Hg] Manisha Tari PRESIDENT & CEO Work Phone: [facility] 05-13-2025 10:46-0400 Heart rate 100 /min Manisha Tari PRESIDENT & CEO Work Phone: [facility] 05-13-2025 10:46-0400 SaO2% (BldA) [Mass fraction] 96 % Manisha Tari PRESIDENT & CEO Work Phone: [facility] 05-13-2025 10:46-0400 Systolic blood pressure 124 mm[Hg] Manisha Marc PRESIDENT & CEO Work Phone: [facility] 04-21-2025 16:25-0400 Body height 162.56 cm Manisha Barclayeliudmarycarmentad PRESIDENT & CEO Work Phone: [facility] 04-21-2025 16:25-0400 Body mass index (BMI) [Ratio] 59.2 kg/m2 Manisha Barclayfani PRESIDENT & CEO Work Phone: [facility] 04-21-2025 16:25-0400 Body temperature 98.6 [degF] Manisha Barclayfani PRESIDENT & CEO Work Phone: [facility] 04-21-2025 16:25-0400 Body weight 156.48 kg Manisha Barclayfani PRESIDENT & CEO Work Phone: [facility] 04-21-2025 16:25-0400 Diastolic blood pressure 81 mm[Hg] Manisha Barclayfani PRESIDENT & CEO Work Phone: [facility] 04-21-2025 16:25-0400 Heart rate 101 /min Manisha Barclayfani PRESIDENT & CEO Work Phone: [facility] 04-21-2025 16:25-0400 Respiratory rate 18 /min Manisha Barclayfani PRESIDENT & CEO Work Phone: [facility] 04-21-2025 16:25-0400 SaO2% (BldA) [Mass fraction] 97 % Manisha Barclayfani PRESIDENT & CEO Work Phone: [facility] 04-21-2025 16:25-0400 Systolic blood pressure 127 mm[Hg] Manisha Tari PRESIDENT & CEO Work Phone: [facility] 04-15-2025 09:49-0400 Body height 164.11 cm Manisha Tari JANEN Work Phone: [facility] 04-15-2025 09:49-0400 Body mass index (BMI) [Ratio] 57.7 kg/m2 Manishawilfredo Marc PRESIDENT & CEO Work Phone: [facility] 04-15-2025 09:49-0400 Body weight 155.6 kg Manisha Barclayfani PRESIDENT & CEO Work Phone: [facility] 04-15-2025 09:49-0400 Diastolic blood pressure 85 mm[Hg] Manisha Tari PRESIDENT & CEO Work Phone: [facility] 04-15-2025 09:49-0400 Heart rate 97 /min Manisha Tari PRESIDENT & CEO Work Phone: [facility] 04-15-2025 09:49-0400 Respiratory rate 18 /min Manisha Tari PRESIDENT & CEO Work Phone: [facility] 04-15-2025 09:49-0400 SaO2% (BldA) [Mass fraction] 97 % Manisha Tari PRESIDENT & CEO Work Phone: [facility] 04-15-2025 09:49-0400 Systolic blood pressure 134 mm[Hg] Manisha Tari PRESIDENT & CEO Work Phone: [facility] 03-29-2025 10:39-0400 Body height 162.56 cm Manisha Tari PRESIDENT & CEO Work Phone: [facility] 03-29-2025 10:39-0400 Body mass index (BMI) [Ratio] 59.1 kg/m2 Manisha Tari PRESIDENT & CEO Work Phone: [facility] 03-29-2025 10:39-0400 Body temperature 98 [degF] Manishawilfredo Marc PRESIDENT & CEO Work Phone: [facility] 03-29-2025 10:39-0400 Body weight 156.26 kg Manisha Tari PRESIDENT & CEO Work Phone: [facility] 03-29-2025 10:39-0400 Diastolic blood pressure 79 mm[Hg] Manisha Marc APRN Work Phone: [facility] 03-29-2025 10:39-0400 Heart rate 91 /min Manisha Barclayeliudmarycarmentad PRESIDENT & CEO Work Phone: [facility] 03-29-2025 10:39-0400 Respiratory rate 18 /min Manisha Barclayfani PRESIDENT & CEO Work Phone: [facility] 03-29-2025 10:39-0400 SaO2% (BldA) [Mass fraction] 98 % Manisha Barclayfani PRESIDENT & CEO Work Phone: [facility] 03-29-2025 10:39-0400 Systolic blood pressure 140 mm[Hg] Manisha Tari PRESIDENT & CEO Work Phone: [facility] 03-22-2025 08:02-0400 Body height 162.56 cm Manisha Barclayeliudmarycarmentad PRESIDENT & CEO Work Phone: [facility] 03-22-2025 08:02-0400 Body mass index (BMI) [Ratio] 58.1 kg/m2 Manisha Barclayfani PRESIDENT & CEO Work Phone: [facility] 03-22-2025 08:02-0400 Body temperature 98.1 [degF] Manisha Barclayfani PRESIDENT & CEO Work Phone: [facility] 03-22-2025 08:02-0400 Body weight 153.76 kg Manisha Barclayeliudmarycarmentad PRESIDENT & CEO Work Phone: [facility] 03-22-2025 08:02-0400 Diastolic blood pressure 80 mm[Hg] Manisha Tari PRESIDENT & CEO Work Phone: [facility] 03-22-2025 08:02-0400 Heart rate 88 /min Manisha Tari PRESIDENT & CEO Work Phone: [facility] 03-22-2025 08:02-0400 SaO2% (BldA) [Mass fraction] 96 % Manisha Tari PRESIDENT & CEO Work Phone: [facility] 03-22-2025 08:02-0400 Systolic blood pressure 126 mm[Hg] Manisha Barclayeliudmarycarmentad PRESIDENT & CEO Work Phone: [facility] 03-11-2025 12:14-0400 Body height 162.56 cm Manisha Barclayeliudmarycarmentad PRESIDENT & CEO Work Phone: [facility] 03-11-2025 12:14-0400 Body mass index (BMI) [Ratio] 58.4 kg/m2 Manisha Barclayeliudmarycarmentad PRESIDENT & CEO Work Phone: [facility] 03-11-2025 12:14-0400 Body temperature 98.1 [degF] Manisha Barclayfani PRESIDENT & CEO Work Phone: [facility] 03-11-2025 12:14-0400 Body weight 154.44 kg Manisha Barclayeliudmarycarmentad PRESIDENT & CEO Work Phone: [facility] 03-11-2025 12:14-0400 Diastolic blood pressure 78 mm[Hg] Manisha Barclayfani PRESIDENT & CEO Work Phone: [facility] 03-11-2025 12:14-0400 Heart rate 118 /min Manisha Barclayfani PRESIDENT & CEO Work Phone: [facility] 03-11-2025 12:14-0400 Respiratory rate 18 /min Manisha Barclayfani PRESIDENT & CEO Work Phone: [facility] 03-11-2025 12:14-0400 SaO2% (BldA) [Mass fraction] 98 % Manisha Barclayfani PRESIDENT & CEO Work Phone: [facility] 03-11-2025 12:14-0400 Systolic blood pressure 126 mm[Hg] Manisha Tari PRESIDENT & CEO Work Phone: [facility] 03-03-2025 10:20-0400 Body height 162.56 cm Manisha Tari PRESIDENT & CEO Work Phone: [facility] 03-03-2025 10:20-0400 Body mass index (BMI) [Ratio] 57.9 kg/m2 Manisha Barclayeliudmarycarmentad PRESIDENT & CEO Work Phone: [facility] 03-03-2025 10:20-0400 Body weight 153.2 kg Manisha Barclayeliudmarycarmentad PRESIDENT & CEO Work Phone: [facility] 02-22-2025 16:50-0400 Body height 162.56 cm Manisha Barclayfani PRESIDENT & CEO Work Phone: [facility] 02-22-2025 16:50-0400 Body mass index (BMI) [Ratio] 57.9 kg/m2 Manisha Barclayfani PRESIDENT & CEO Work Phone: [facility] 02-22-2025 16:50-0400 Body temperature 98.8 [degF] Manisha Tari PRESIDENT & CEO Work Phone: [facility] 02-22-2025 16:50-0400 Body weight 152.91 kg Manisha Barclayfani PRESIDENT & CEO Work Phone: [facility] 02-22-2025 16:50-0400 Diastolic blood pressure 76 mm[Hg] Manisha Tari PRESIDENT & CEO Work Phone: [facility] 02-22-2025 16:50-0400 Heart rate 108 /min Manisha Tari PRESIDENT & CEO Work Phone: [facility] 02-22-2025 16:50-0400 Respiratory rate 18 /min Manisha Tari PRESIDENT & CEO Work Phone: [facility] 02-22-2025 16:50-0400 SaO2% (BldA) [Mass fraction] 97 % Manishawilfredo Marc PRESIDENT & CEO Work Phone: [facility] 02-22-2025 16:50-0400 Systolic blood pressure 119 mm[Hg] Manisha Marc PRESIDENT & CEO Work Phone: [facility] 02-17-2025 10:56-0400 Body height 162.56 cm Manisha Barclayfani PRESIDENT & CEO Work Phone: [facility] 02-17-2025 10:56-0400 Body mass index (BMI) [Ratio] 57.8 kg/m2 Manisha Tari PRESIDENT & CEO Work Phone: [facility] 02-17-2025 10:56-0400 Body temperature 96.5 [degF] Manisha Tari PRESIDENT & CEO Work Phone: [facility] 02-17-2025 10:56-0400 Body weight 152.86 kg Manisha Barclayfani PRESIDENT & CEO Work Phone: [facility] 02-17-2025 10:56-0400 Diastolic blood pressure 84 mm[Hg] Manisha Tari PRESIDENT & CEO Work Phone: [facility] 02-17-2025 10:56-0400 Heart rate 96 /min Manisha Barclayfani PRESIDENT & CEO Work Phone: [facility] 02-17-2025 10:56-0400 SaO2% (BldA) [Mass fraction] 97 % Manisha Barclayfani PRESIDENT & CEO Work Phone: [facility] 02-17-2025 10:56-0400 Systolic blood pressure 134 mm[Hg] Manisha Tari PRESIDENT & CEO Work Phone: [facility] 11-15-2024 13:35-0400 Body height 162.56 cm Manisha Barclayfani PRESIDENT & CEO Work Phone: [facility] 11-15-2024 13:35-0400 Body mass index (BMI) [Ratio] 57.4 kg/m2 Manisha Tari PRESIDENT & CEO Work Phone: [facility] 11-15-2024 13:35-0400 Body temperature 97.4 [degF] Manisha Marc PRESIDENT & CEO Work Phone: [facility] 11-15-2024 13:35-0400 Body weight 151.95 kg Manisha Marc PRESIDENT & CEO Work Phone: [facility] 11-15-2024 13:35-0400 Diastolic blood pressure 80 mm[Hg] Manisha Marc PRESIDENT & CEO Work Phone: [facility] 11-15-2024 13:35-0400 Heart rate 111 /min Manisha Marc PRESIDENT & CEO Work Phone: [facility] 11-15-2024 13:35-0400 Systolic blood pressure 122 mm[Hg] Manisha Marc PRESIDENT & CEO Work Phone: [facility] 11-03-2024 15:56-0400 Body height 162.6 cm Marko Celestina DO Work Phone: [facility] 11-03-2024 15:56-0400 Body mass index (BMI) [Ratio] 57.12 kg/m2 Marko Celestina DO Work Phone: [facility] 11-03-2024 15:56-0400 Body weight 150.96 kg Marko Celestina DO Work Phone: [facility] 11-03-2024 15:56-0400 Diastolic blood pressure 70 mm[Hg] Marko Celestina DO Work Phone: [facility] 11-03-2024 15:56-0400 Systolic blood pressure 110 mm[Hg] Marko Celestina DO Work Phone: [facility] 09-27-2024 15:46-0500 Body height 162.56 cm PHYSICIAN NO [facility] 09-27-2024 15:46-0500 Body mass index (BMI) [Ratio] 57.3 kg/m2 PHYSICIAN NO [facility] 09-27-2024 15:46-0500 Body temperature 97.9 [degF] PHYSICIAN NO [facility] 09-27-2024 15:46-0500 Body weight 151.49 kg PHYSICIAN NO [facility] 09-27-2024 15:46-0500 Diastolic blood pressure 83 mm[Hg] PHYSICIAN NO [facility] 09-27-2024 15:46-0500 Heart rate 94 /min PHYSICIAN NO [facility] 09-27-2024 15:46-0500 Respiratory rate 18 /min PHYSICIAN NO [facility] 09-27-2024 15:46-0500 SaO2% (BldA) [Mass fraction] 99 % PHYSICIAN NO [facility] 09-27-2024 15:46-0500 Systolic blood pressure 136 mm[Hg] PHYSICIAN NO [facility] 08-28-2024 13:47-0500 Body height 162.56 cm PHYSICIAN NO [facility] 08-28-2024 13:47-0500 Body mass index (BMI) [Ratio] 57.4 kg/m2 PHYSICIAN NO [facility] 08-28-2024 13:47-0500 Body temperature 97.1 [degF] PHYSICIAN NO [facility] 08-28-2024 13:47-0500 Body weight 151.95 kg PHYSICIAN NO [facility] 08-28-2024 13:47-0500 Diastolic blood pressure 86 mm[Hg] PHYSICIAN NO [facility] 08-28-2024 13:47-0500 Heart rate 105 /min PHYSICIAN NO [facility] 08-28-2024 13:47-0500 Respiratory rate 16 /min PHYSICIAN NO [facility] 08-28-2024 13:47-0500 SaO2% (BldA) [Mass fraction] 97 % PHYSICIAN NO [facility] 08-28-2024 13:47-0500 Systolic blood pressure 136 mm[Hg] PHYSICIAN NO [facility] 08-24-2024 11:00-0500 Body height 162.56 cm Manisha Marc APRN Work Phone: [facility] 08-24-2024 11:00-0500 Body mass index (BMI) [Ratio] 56.5 kg/m2 Manisha Parksacher PRESIDENT & CEO Work Phone: [facility] 08-24-2024 11:00-0500 Body temperature 97 [degF] Manisha Tari PRESIDENT & CEO Work Phone: [facility] 08-24-2024 11:00-0500 Body weight 149.34 kg Manisha Tari PRESIDENT & CEO Work Phone: [facility] 08-24-2024 11:00-0500 Diastolic blood pressure 82 mm[Hg] Manisha Tari PRESIDENT & CEO Work Phone: [facility] 08-24-2024 11:00-0500 Heart rate 104 /min Manisha Tari PRESIDENT & CEO Work Phone: [facility] 08-24-2024 11:00-0500 SaO2% (BldA) [Mass fraction] 95 % Manisha Tari PRESIDENT & CEO Work Phone: [facility] 08-24-2024 11:00-0500 Systolic blood pressure 134 mm[Hg] Manishawilfredo Marc PRESIDENT & CEO Work Phone: [facility] 08-19-2024 11:05-0500 Diastolic blood pressure 72 mm[Hg] Manisha Tari PRESIDENT & CEO Work Phone: [facility] 08-19-2024 11:05-0500 Heart rate 82 /min Manisha Marc PRESIDENT & CEO Work Phone: [facility] 08-19-2024 11:05-0500 Respiratory rate 16 /min Manisha Marc PRESIDENT & CEO Work Phone: [facility] 08-19-2024 11:05-0500 SaO2% (BldA) [Mass fraction] 99 % Manisha Marc PRESIDENT & CEO Work Phone: [facility] 08-19-2024 11:05-0500 Systolic blood pressure 115 mm[Hg] Manisha Marc PRESIDENT & CEO Work Phone: [facility] 08-19-2024 09:01-0500 Body height 162.56 cm Manisha Tari PRESIDENT & CEO Work Phone: [facility] 08-19-2024 09:01-0500 Body weight 149.68 kg Manisha Tari PRESIDENT & CEO Work Phone: [facility] 08-16-2024 11:40-0500 Body mass index (BMI) [Ratio] 57.33 kg/m2 Conuselo Love COMPONENT [employer]SEM[employer]ER Work Phone: [facility] 08-16-2024 11:40-0500 Body weight 151.5 kg Consuelo Love COMPONENT ASSEMBLER Work Phone: [facility] 08-16-2024 11:40-0500 Diastolic blood pressure 92 mm[Hg] Consuelo Love COMPONENT ASSEMBLER Work Phone: [facility] 08-16-2024 11:40-0500 Heart rate 82 /min Consuelo Love COMPONENT ASSEMBLER Work Phone: [facility] 08-16-2024 11:40-0500 SaO2% (BldA) [Mass fraction] 93 % Consuelo Love COMPONENT ASSEMBLER Work Phone: [facility] 08-16-2024 11:40-0500 Systolic blood pressure 144 mm[Hg] Consuelo Love COMPONENT ASSEMBLER Work Phone: [facility] 08-09-2024 15:48-0500 Body height 162.56 cm Manishawilfredo Marc PRESIDENT & CEO Work Phone: [facility] 08-09-2024 15:48-0500 Body mass index (BMI) [Ratio] 58.1 kg/m2 Manisha Marc PRESIDENT & CEO Work Phone: [facility] 08-09-2024 15:48-0500 Body temperature 98.7 [degF] Manisha Marc PRESIDENT & CEO Work Phone: [facility] 08-09-2024 15:48-0500 Body weight 153.76 kg Manisha Keanetad PRESIDENT & CEO Work Phone: [facility] 08-09-2024 15:48-0500 Diastolic blood pressure 94 mm[Hg] Manisha Keanetad PRESIDENT & CEO Work Phone: [facility] 08-09-2024 15:48-0500 Heart rate 135 /min Manisha Keanetad PRESIDENT & CEO Work Phone: [facility] 08-09-2024 15:48-0500 SaO2% (BldA) [Mass fraction] 96 % Manisha Keanetad PRESIDENT & CEO Work Phone: [facility] 08-09-2024 15:48-0500 Systolic blood pressure 134 mm[Hg] Manisha Parksgareth PRESIDENT & CEO Work Phone: [facility] 06-23-2024 12:21-0500 Body mass index (BMI) [Ratio] 57.47 kg/m2 Christopher Kenny DO Work Phone: [facility] 06-23-2024 12:21-0500 Body weight 151.86 kg Christopher Kenny DO Work Phone: [facility] 06-23-2024 12:21-0500 Diastolic blood pressure 81 mm[Hg] Christopher Kenny DO Work Phone: [facility] 06-23-2024 12:21-0500 Heart rate 104 /min Christopher Kenny DO Work Phone: [facility] 06-23-2024 12:21-0500 SaO2% (BldA) [Mass fraction] 95 % Christopher Kenny DO Work Phone: [facility] 06-23-2024 12:21-0500 Systolic blood pressure 132 mm[Hg] Christopher Kenny DO Work Phone: [facility] 06-21-2024 11:18-0500 Body height 162.56 cm PRESIDENT & CEO Manisha Barclayfani Work Phone: [facility] 06-21-2024 11:18-0500 Body mass index (BMI) [Ratio] 57 kg/m2 PRESIDENT & CEOJosé Miguel Parksacher Work Phone: [facility] 06-21-2024 11:18-0500 Body temperature 97.3 [degF] PRESIDENT & CEOJosé Miguel Barclayrbacher Work Phone: [facility] 06-21-2024 11:18-0500 Body weight 150.81 kg PRESIDENT & CEOJosé Miguel Parksacher Work Phone: [facility] 06-21-2024 11:18-0500 Diastolic blood pressure 88 mm[Hg] PRESIDENT & CEOJosé Miguel Parksacher Work Phone: [facility] 06-21-2024 11:18-0500 Heart rate 135 /min PRESIDENT & CEOJosé Miguel Parksacher Work Phone: [facility] 06-21-2024 11:18-0500 SaO2% (BldA) [Mass fraction] 94 % PRESIDENT & CEOJosé Miguel Parksacher Work Phone: [facility] 06-21-2024 11:18-0500 Systolic blood pressure 136 mm[Hg] PRESIDENT & CEOJosé Miguel Parksacher Work Phone: [facility] 06-15-2024 09:29-0400 Body height 162.56 cm PRESIDENT & CEOJosé Miguel Parksacher Work Phone: [facility] 06-15-2024 09:29-0400 Body mass index (BMI) [Ratio] 57.9 kg/m2 PRESIDENT & CEOJosé Miguel Parksacher Work Phone: [facility] 06-15-2024 09:29-0400 Body temperature 97.5 [degF] ROSITA Parksacher Work Phone: [facility] 06-15-2024 09:29-0400 Body weight 152.97 kg PRESIDENT & CEOJosé Miguel Parksacher Work Phone: [facility] 06-15-2024 09:29-0400 Diastolic blood pressure 88 mm[Hg] PRESIDENT & CEOJosé Miguel Parksacher Work Phone: [facility] 06-15-2024 09:29-0400 Heart rate 103 /min PRESIDENT & CEOJosé Miguel ColladoManisha Denyrbacher Work Phone: [facility] 06-15-2024 09:29-0400 Respiratory rate 18 /min PRESIDENT & CEOJosé Miguel Barclayrbacher Work Phone: [facility] 06-15-2024 09:29-0400 SaO2% (BldA) [Mass fraction] 95 % PRESIDENT & CEOJosé Miguel ThaoManisha Charlyacher Work Phone: [facility] 06-15-2024 09:29-0400 Systolic blood pressure 128 mm[Hg] PRESIDENT & CEOJosé Miguel Barclayrbacher Work Phone: [facility] 04-21-2024 14:31-0400 Body height 162.56 cm PRESIDENT & CEOJosé Miguel Barclayrbacher Work Phone: [facility] 04-21-2024 14:31-0400 Body mass index (BMI) [Ratio] 55 kg/m2 PRESIDENT & CEO Manisha Denyrbacher Work Phone: [facility] 04-21-2024 14:31-0400 Body weight 145.6 kg PRESIDENT & CEOJosé Miguel Parksacher Work Phone: [facility] 04-21-2024 14:31-0400 Diastolic blood pressure 88 mm[Hg] PRESIDENT & CEOJosé Miguel Barclayrbacher Work Phone: [facility] 04-21-2024 14:31-0400 Heart rate 111 /min PRESIDENT & CEOJosé Miguel Barclayrbacher Work Phone: [facility] 04-21-2024 14:31-0400 SaO2% (BldA) [Mass fraction] 97 % PRESIDENT & CEOJosé Miguel Barclayrbacher Work Phone: [facility] 04-21-2024 14:31-0400 Systolic blood pressure 136 mm[Hg] PRESIDENT & CEOJosé Miguel Barclayrbacher Work Phone: [facility] 11-26-2023 08:40-0400 Body height 162.56 cm PRESIDENT & CEOJosé Miguel ColladoManisha Denyrbacher Work Phone: [facility] 11-26-2023 08:40-0400 Body mass index (BMI) [Ratio] 52.9 kg/m2 PRESIDENT & CEOJosé Miguel ColladoManisha Denyrbacher Work Phone: [facility] 11-26-2023 08:40-0400 Body weight 139.79 kg PRESIDENT & CEOJosé Miguel ColladoManisha Charlyacher Work Phone: [facility] 11-26-2023 08:40-0400 Diastolic blood pressure 79 mm[Hg] PRESIDENT & CEOJosé Miguel Barclayrbacher Work Phone: [facility] 11-26-2023 08:40-0400 Heart rate 97 /min PRESIDENT & CEOJosé Miguel ColladoManisha Denyrbacher Work Phone: [facility] 11-26-2023 08:40-0400 SaO2% (BldA) [Mass fraction] 99 % PRESIDENT & CEO Manisha Denyrbacher Work Phone: [facility] 11-26-2023 08:40-0400 Systolic blood pressure 131 mm[Hg] PRESIDENT & CEOJosé Miguel Parksacher Work Phone: [facility] 11-03-2023 14:06-0400 Body height 162.56 cm PRESIDENT & CEOJosé Miguel ColladoManisha Denyrbacher Work Phone: [facility] 11-03-2023 14:06-0400 Body mass index (BMI) [Ratio] 53.1 kg/m2 PRESIDENT & CEOJosé Miguel ColladoManisha Denyrbacher Work Phone: [facility] 11-03-2023 14:06-0400 Body weight 140.61 kg PRESIDENT & CEOJosé Miguel Barclayrbacher Work Phone: [facility] 11-03-2023 14:06-0400 Diastolic blood pressure 78 mm[Hg] PRESIDENT & CEOJosé Miguel Barclayrbacher Work Phone: [facility] 11-03-2023 14:06-0400 Heart rate 105 /min PRESIDENT & CEOJosé Miguel Barclayrbacher Work Phone: [facility] 11-03-2023 14:06-0400 SaO2% (BldA) [Mass fraction] 98 % PRESIDENT & CEOJosé Miguel Barclayrbacher Work Phone: [facility] 11-03-2023 14:06-0400 Systolic blood pressure 118 mm[Hg] PRESIDENT & CEOJosé Miguel Barclayrbacher Work Phone: [facility] 10-08-2023 10:50-0500 Body height 162.56 cm PRESIDENT & CEOJosé Miguel Barclayrbacher Work Phone: [facility] 10-08-2023 10:50-0500 Body weight 139.25 kg PRESIDENT & CEOJosé Miguel Barclayrbacher Work Phone: [facility] 10-01-2023 09:20-0500 Body height 162.56 cm PRESIDENT & CEOJosé Miguel Barclayrbacher Work Phone: [facility] 10-01-2023 09:20-0500 Body mass index (BMI) [Ratio] 53.6 kg/m2 PRESIDENT & CEOJosé Miguel Barclayrbacher Work Phone: [facility] 10-01-2023 09:20-0500 Body weight 141.69 kg PRESIDENT & CEOJosé Miguel Barclayrbacher Work Phone: [facility] 10-01-2023 09:20-0500 Diastolic blood pressure 75 mm[Hg] PRESIDENT & CEOJosé Miguel Barclayrbacher Work Phone: [facility] 10-01-2023 09:20-0500 Heart rate 85 /min PRESIDENT & CEOJosé Miguel Barclayrbacher Work Phone: [facility] 10-01-2023 09:20-0500 Respiratory rate 18 /min PRESIDENT & CEO Manisha Barclayrbacher Work Phone: [facility] 10-01-2023 09:20-0500 SaO2% (BldA) [Mass fraction] 99 % PRESIDENT & CEO Manisha Barclayrbacher Work Phone: [facility] 10-01-2023 09:20-0500 Systolic blood pressure 123 mm[Hg] PRESIDENT & CEO Manisha Denyrbacher Work Phone: [facility] 09-03-2023 08:00-0500 Body height 162.56 cm PRESIDENT & CEO Manisha Barclayrbacher Work Phone: [facility] 09-03-2023 08:00-0500 Body weight 138.79 kg PRESIDENT & CEO Manisha Barclayrbacher Work Phone: [facility] 09-03-2023 08:00-0500 Diastolic blood pressure 78 mm[Hg] PRESIDENT & CEO Manisha Barclayrbacher Work Phone: [facility] 09-03-2023 08:00-0500 Systolic blood pressure 118 mm[Hg] PRESIDENT & CEO Manisha Barclayrbacher Work Phone: [facility] 08-19-2023 09:45-0500 Body height 162.56 cm Nely Cruz Other [facility] 08-13-2023 14:00-0500 Body height 162.56 cm Manisha Marc Other [facility] 08-13-2023 14:00-0500 Body mass index (BMI) [Ratio] 52.35 kg/m2 Manisha Marc Other [employer] Other 08-13-2023 14:00-0500 Body weight 138.35 kg Manisha Parksacher Other [employer] Other 08-13-2023 14:00-0500 Body weight 138.34 kg ROSITA Marc Work Phone: [facility] 08-13-2023 14:00-0500 Diastolic blood pressure 80 mm[Hg] Manisha Marc Other [facility] 08-13-2023 14:00-0500 SaO2% (BldA) [Mass fraction] 98 % Manisha Marc Other [employer] Other 08-13-2023 14:00-0500 Systolic blood pressure 114 mm[Hg] Manisha Marc Other [facility] 07-15-2023 07:45-0500 Body height 162.56 cm [employer] Other [facility] 07-15-2023 07:45-0500 Body mass index (BMI) [Ratio] 52.98 kg/m2 [employer] Other [employer] Other 07-15-2023 07:45-0500 Body weight 140.03 kg [employer] Other [employer] Other 07-15-2023 07:45-0500 Body weight 140.02 kg ROSITA Marc Work Phone: [facility] 07-15-2023 07:45-0500 Diastolic blood pressure 66 mm[Hg] [employer] Other [facility] 07-15-2023 07:45-0500 Respiratory rate 18 /min [employer] Other [employer] Other 07-15-2023 07:45-0500 SaO2% (BldA) [Mass fraction] 98 % [employer] Other [employer] Other 07-15-2023 07:45-0500 Systolic blood pressure 112 mm[Hg] Celio Mullins Other [facility] 07-07-2023 11:15-0500 Body height 162.56 cm Michelle Oma Other [facility] 07-07-2023 11:15-0500 Body mass index (BMI) [Ratio] 52.69 kg/m2 Michelle Oma Other [employer] Other 07-07-2023 11:15-0500 Body temperature 98 [degF] Michelle Oma Other [employer] Other 07-07-2023 11:15-0500 Body weight 139.26 kg Michelle Oma Other [employer] Other 07-07-2023 11:15-0500 Body weight 139.25 kg ROSITA Mrac Work Phone: [facility] 07-07-2023 11:15-0500 Respiratory rate 20 /min Michelle Haynesmond Other [employer] Other 07-07-2023 11:15-0500 SaO2% (BldA) [Mass fraction] 98 % Michelle Oma Other [employer] Other 06-29-2023 10:20-0500 Body height 162.56 cm Michelle Oma Other [employer] Other 06-29-2023 10:20-0500 Body mass index (BMI) [Ratio] 53.03 kg/m2 Michelle Oma Other [employer] Other 06-29-2023 10:20-0500 Body temperature 99.7 [degF] Michelle Ernandez Other [employer] Other 06-29-2023 10:20-0500 Body weight 140.16 kg Michelle Ernandez Other [employer] Other 06-29-2023 10:20-0500 Respiratory rate 19 /min Michelle Ernandez Other [employer] Other 06-29-2023 10:20-0500 SaO2% (BldA) [Mass fraction] 98 % Michelle Ernandez Other [employer] Other 06-11-2023 15:30-0400 Body height 162.56 cm Manisha Marc Other [employer] Other 06-11-2023 15:30-0400 Body mass index (BMI) [Ratio] 53.79 kg/m2 Manisha Marc Other [employer] Other 06-11-2023 15:30-0400 Body weight 142.16 kg Manisha Marc Other [employer] Other 06-11-2023 15:30-0400 Diastolic blood pressure 62 mm[Hg] Manisha Marc Other [employer] Other 06-11-2023 15:30-0400 SaO2% (BldA) [Mass fraction] 99 % Manisha Marc Other [employer] Other 06-11-2023 15:30-0400 Systolic blood pressure 126 mm[Hg] Manisha Marc Other [employer] Other 05-06-2023 13:40-0400 Body height 162.56 cm Casandra Hassan Other [employer] Other 05-06-2023 13:40-0400 Body mass index (BMI) [Ratio] 53.65 kg/m2 Casandra Hassan Other [employer] Other 05-06-2023 13:40-0400 Body temperature 98.4 [degF] Casandramila Hassan Other [employer] Other 05-06-2023 13:40-0400 Body weight 141.8 kg Casandra Hassan Other [employer] Other 05-06-2023 13:40-0400 Diastolic blood pressure 81 mm[Hg] Casandra Hassan Other [employer] Other 05-06-2023 13:40-0400 Respiratory rate 18 /min Casandra Hassan Other [employer] Other 05-06-2023 13:40-0400 SaO2% (BldA) [Mass fraction] 95 % Casandra Hassan Other [employer] Other 05-06-2023 13:40-0400 Systolic blood pressure 134 mm[Hg] Casandra Hassan Other [employer] Other 04-30-2023 08:30-0400 Body height 162.56 cm Manisha Marc Other [employer] Other 04-30-2023 08:30-0400 Body mass index (BMI) [Ratio] 53.86 kg/m2 Manisha Keanetad Other [employer] Other 04-30-2023 08:30-0400 Body weight 142.34 kg Manisha Marc Other [employer] Other 04-30-2023 08:30-0400 Diastolic blood pressure 82 mm[Hg] Manisha Keanetad Other [employer] Other 04-30-2023 08:30-0400 SaO2% (BldA) [Mass fraction] 100 % Manisha Keanetad Other [employer] Other 04-30-2023 08:30-0400 Systolic blood pressure 120 mm[Hg] Manisha Keanetad Other [employer] Other 04-29-2023 07:00-0400 Body height 162.56 cm Nely Fitt Other [employer] Other 04-29-2023 07:00-0400 Body mass index (BMI) [Ratio] 54.41 kg/m2 Nely Fitt Other [employer] Other 04-29-2023 07:00-0400 Body weight 143.79 kg Nely Fitt Other [employer] Other 03-25-2023 13:45-0400 Body height 162.56 cm Celio Mullins Other [employer] Other 03-25-2023 13:45-0400 Body mass index (BMI) [Ratio] 55.45 kg/m2 Celio Mullins Other [employer] Other 03-25-2023 13:45-0400 Body weight 146.56 kg Celio Mullins Other [employer] Other 03-25-2023 13:45-0400 Diastolic blood pressure 57 mm[Hg] Celio Mullins Other [employer] Other 03-25-2023 13:45-0400 Respiratory rate 18 /min Celio Mullins Other [employer] Other 03-25-2023 13:45-0400 SaO2% (BldA) [Mass fraction] 97 % Celio Mullins Other [employer] Other 03-25-2023 13:45-0400 Systolic blood pressure 106 mm[Hg] Celio [employer] Other [employer] Other 02-11-2023 12:15-0400 Body height 163.83 cm Casandra Hassan Other [employer] Other 02-11-2023 12:15-0400 Body mass index (BMI) [Ratio] 54.88 kg/m2 Casandra Hassan Other [employer] Other 02-11-2023 12:15-0400 Body temperature 98 [degF] Casandra Hassan Other [employer] Other 02-11-2023 12:15-0400 Body weight 147.33 kg Casandra Hassan Other [employer] Other 02-11-2023 12:15-0400 Diastolic blood pressure 85 mm[Hg] Casandra Hassan Other [employer] Other 02-11-2023 12:15-0400 Respiratory rate 18 /min Casandra Hassan Other [employer] Other 02-11-2023 12:15-0400 SaO2% (BldA) [Mass fraction] 98 % Casandra Hassan Other [employer] Other 02-11-2023 12:15-0400 Systolic blood pressure 128 mm[Hg] Casandra Hassan Other [employer] Other 07-13-2022 11:15-0500 Body height 163.83 cm Michelle Ernandez Other [employer] Other 07-13-2022 11:15-0500 Body mass index (BMI) [Ratio] 51.54 kg/m2 Michelle Haynesmond Other [employer] Other 07-13-2022 11:15-0500 Body temperature 96.6 [degF] Michelle Haynesmond Other [employer] Other 07-13-2022 11:15-0500 Body weight 138.35 kg Michelle Haynesmond Other [employer] Other 07-13-2022 11:15-0500 Respiratory rate 18 /min Michelle Haynesmond Other [employer] Other 07-13-2022 11:15-0500 SaO2% (BldA) [Mass fraction] 96 % Michelle Oma Other [employer] Other 07-06-2021 13:00-0500 Body height 163.83 cm Michelle Haynesmond Other [employer] Other 07-06-2021 13:00-0500 Body mass index (BMI) [Ratio] 49 kg/m2 Michelle Oma Other [employer] Other 07-06-2021 13:00-0500 Body temperature 97.5 [degF] Michelle Oma Other [employer] Other 07-06-2021 13:00-0500 Body weight 131.54 kg Michelle Oma Other [employer] Other 07-06-2021 13:00-0500 SaO2% (BldA) [Mass fraction] 96 % Michelle Oma Other [employer] Other 06-17-2021 11:00-0400 Body height 163.83 cm Michelle Oma Other [employer] Other 06-17-2021 11:00-0400 Body mass index (BMI) [Ratio] 49.68 kg/m2 Michelle Oma Other [employer] Other 06-17-2021 11:00-0400 Body temperature 98.3 [degF] Michelle Oma Other [employer] Other 06-17-2021 11:00-0400 Body weight 133.36 kg Michelle Oma Other [employer] Other 06-17-2021 11:00-0400 Respiratory rate 18 /min Michelle Oma Other [employer] Other 06-17-2021 11:00-0400 SaO2% (BldA) [Mass fraction] 96 % Michelle Oma Other [employer] Other 05-31-2021 13:50-0400 Body height 163.83 cm Michelle Haynesmond Other [employer] Other 05-31-2021 13:50-0400 Body mass index (BMI) [Ratio] 50.36 kg/m2 Michelle Oma Other [employer] Other 05-31-2021 13:50-0400 Body temperature 97.8 [degF] Michelle Oma Other [employer] Other 05-31-2021 13:50-0400 Body weight 135.17 kg Michelle Oma Other [employer] Other 05-31-2021 13:50-0400 Diastolic blood pressure 90 mm[Hg] Michelle Oma Other [employer] Other 05-31-2021 13:50-0400 Respiratory rate 18 /min Michelle Oma Other [employer] Other 05-31-2021 13:50-0400 SaO2% (BldA) [Mass fraction] 98 % Michelle Oma Other [employer] Other 05-31-2021 13:50-0400 Systolic blood pressure 150 mm[Hg] Michelle Oma Other [employer] Other Encounters Encounter Date Encounter Type Care Provider Facility Start: 06-03-2025 End: 06-03-2025 ambulatory Manisha Marc APRN Work Phone: -[facility] Start: 06-03-2025 End: 06-03-2025 Patient encounter procedure Manisha Martin DNP -[facility] Work Phone: Start: 05-31-2025 Registered Recurring Kevyn SORENSEN Credible Start: 05-31-2025 ambulatory Edward Richey acility:[facility] Start: 05-25-2025 End: 05-25-2025 ambulatory Manisha Marc APRN Work Phone: [facility] Work Phone: Start: 05-25-2025 End: 05-25-2025 Patient encounter procedure Manpreet Martin MD -[facility] Cardiology Work Phone: Start: 05-25-2025 End: 05-25-2025 Patient encounter procedure Viry Jolly [facility] Work Phone: Start: 05-25-2025 End: 05-25-2025 ambulatory Manisha Marc APRN Work Phone: [facility] Work Phone: Start: 05-13-2025 End: 05-13-2025 ambulatory Manisha Marc APRN Work Phone: [facility] Work Phone: Start: 05-13-2025 End: 05-13-2025 Patient encounter procedure Manisha Marc APRN [facility] Work Phone: Start: 05-10-2025 Registered Recurring Kevyn SORENSEN [employer] Start: 05-06-2025 Registered Recurring Kevyn SORENSEN [employer] Start: 04-21-2025 End: 04-21-2025 ambulatory Manisha Marc APRN Work Phone: [facility] Work Phone: Start: 04-21-2025 End: 04-21-2025 Patient encounter procedure Em Garcia PRESIDENT & CEO -[facility] Work Phone: Start: 04-15-2025 Non-patient / Non-visit Aidan Billings MD -[facility] Cardiology Work Phone: Start: 04-15-2025 End: 04-15-2025 ambulatory Manisha Marc APRN Work Phone: [facility] Work Phone: Start: 04-15-2025 End: 04-15-2025 Patient encounter procedure Manisha Martin [facility] Work Phone: Start: 04-07-2025 Registered Recurring Kevyn SORENSEN [employer] Start: 03-29-2025 End: 03-29-2025 ambulatory Manisha Marc APRN Work Phone: [facility] Work Phone: Start: 03-29-2025 End: 03-29-2025 Patient encounter procedure Casandra Martin APRN -[facility] Work Phone: Start: 03-26-2025 Registered Recurring Kevyn SORENSEN [employer] Start: 03-22-2025 End: 03-22-2025 ambulatory Manisha Marc APRN Work Phone: [facility] Work Phone: Start: 03-22-2025 End: 03-22-2025 Patient encounter procedure Manisha Macr APRN [facility] -[facility] Work Phone: Start: 03-12-2025 Registered Recurring Kevyn SORENSEN [employer] Start: 03-11-2025 End: 03-11-2025 ambulatory Manisha Marc APRN Work Phone: [facility] Work Phone: Start: 03-11-2025 End: 03-11-2025 Patient encounter procedure Casandra Martin APRN -[facility] Work Phone: Start: 03-03-2025 End: 03-03-2025 ambulatory Manisha Marc APRN Work Phone: [facility] Work Phone: Start: 03-03-2025 End: 03-03-2025 Patient encounter procedure Syed Leonard MD -[facility] Neurosurgery Work Phone: Start: 03-02-2025 Registered Recurring Kevyn SORENSEN [employer] Start: 02-28-2025 End: 02-28-2025 ambulatory Bud Combs MD Facility: [facility] Start: 02-22-2025 End: 02-22-2025 ambulatory Manisha Marc APRN Work Phone: [facility] Work Phone: Start: 02-22-2025 End: 02-22-2025 Patient encounter procedure Sakina Real PRESIDENT & CEO -[facility] Work Phone: Start: 02-22-2025 Registered Recurring Kevyn SORENSEN [employer] Start: 02-17-2025 End: 02-17-2025 Departed Referred Manisha Marc APRN [employer] -[facility] Work Phone: Start: 02-17-2025 End: 02-17-2025 ambulatory Manisha Marc APRN Work Phone: [facility] Work Phone: Start: 02-17-2025 End: 02-17-2025 Patient encounter procedure Manisha Marc APRN [employer]PER[employer] -[facility] Work Phone: Start: 02-16-2025 Registered Recurring Kevyn SORENSEN [employer] Start: 02-08-2025 Registered Recurring Kevyn SORENSEN [employer] Start: 01-24-2025 End: 01-24-2025 ambulatory Bud Combs MD Facility:[facility] [place] Start: 12-28-2024 Non-patient / Non-visit Tiffanie buck MD -[facility] Work Phone: Start: 11-30-2024 End: 11-30-2024 ambulatory MELA ANDERSON Not Available Start: 11-15-2024 End: 11-15-2024 ambulatory Manisha Marc PRESIDENT & CEO Work Phone: [facility] Work Phone: Start: 11-15-2024 End: 11-15-2024 Patient encounter procedure Manisha Marc PRESIDENT & CEO Work Phone: [facility] Work Phone: Start: 11-10-2024 End: 11-10-2024 ambulatory CONSUELO LOVE Not Available Start: 11-09-2024 Registered Recurring Manisha Marc PRESIDENT & CEO Work Phone: [facility] Start: 11-03-2024 Non-patient / Non-visit Sherry Marc PRESIDENT & CEO Work Phone: [facility] Work Phone: Start: 11-03-2024 End: 11-03-2024 Patient encounter procedure Marko Celestina DO Work Phone: [facility] Work Phone: Start: 11-03-2024 End: 11-03-2024 Periodic preventive med est patient 18-39 yrs Marko Celestina DO Work Phone: [facility] Comment on above: Well woman exam with routine gynecological exam; Exposure to STD; Vaginal discharge; Missed menses; PCOS (polycystic ovarian syndrome); Vaginal itching Start: 11-03-2024 End: 11-03-2024 ambulatory MARKO CELESTINA Not Available Start: 10-12-2024 Non-patient / Non-visit Sherry Marc PRESIDENT & CEO Work Phone: [facility] Work Phone: Start: 09-27-2024 End: 09-27-2024 ambulatory PHYSICIAN NO [facility] Work Phone: Start: 09-27-2024 End: 09-27-2024 Patient encounter procedure PHYSICIAN NO [facility] Physician [facility] Work Phone: Start: 08-28-2024 End: 08-28-2024 ambulatory PHYSICIAN NO [facility] Work Phone: Start: 08-28-2024 End: 08-28-2024 Patient encounter procedure PHYSICIAN NO [facility] Work Phone: Start: 08-27-2024 Registered Recurring PHYSICIAN NO [facility] Credible Start: 08-24-2024 Registered Recurring PHYSICIAN NO [facility] Start: 08-24-2024 Immune system finding Manisha Marc PRESIDENT & CEO Work Phone: [facility] Start: 08-24-2024 Patient encounter status Manisha Marc PRESIDENT & CEO Work Phone: [facility] Start: 08-24-2024 End: 08-24-2024 ambulatory Manisha Marc PRESIDENT & CEO Work Phone: [facility] Work Phone: Start: 08-24-2024 End: 08-24-2024 Encounter for antibody response examination Manisha Marc PRESIDENT & CEO Work Phone: [facility] Start: 08-24-2024 End: 08-24-2024 Encounter for general adult medical examination without abnormal findings Manisha Marc PRESIDENT & CEO Work Phone: [facility] Start: 08-24-2024 End: 08-24-2024 Patient encounter procedure Manisha Marc PRESIDENT & CEO Work Phone: [facility] Work Phone: Start: 08-19-2024 Non-patient / Non-visit Keeshasergio sudheer Marc PRESIDENT & CEO Work Phone: [facility] Gastroenterol Work Phone: Start: 08-19-2024 End: 08-19-2024 Admission to same day surgery center Manisha Marc PRESIDENT & CEO Work Phone: [facility] Work Phone: Start: 08-19-2024 End: 08-19-2024 ambulatory Manisha Marc PRESIDENT & CEO Work Phone: [facility] Work Phone: Start: 08-16-2024 End: 08-16-2024 Bamboo flowsheet Consuelo Love COMPONENT ASSEMBLER Work Phone: [employer] [address] Start: 08-16-2024 End: 08-16-2024 Bamboo flowsheet Consuelo Love COMPONENT ASSEMBLER Work Phone: [facility] [address] Start: 08-16-2024 End: 08-16-2024 ambulatory CONSUELO LOVE Not Available Start: 08-16-2024 End: 08-16-2024 Office outpatient visit 15 minutes Consuelo Love COMPONENT ASSEMBLER Work Phone: [employer] [place] [facility] [address] Comment on above: Cognitive dysfunctio [...] 08-09-2024 End: 08-09-2024 Departed Referred Manisha Marc PRESIDENT & CEO Work Phone: [facility] [place] Work Phone: Start: 08-09-2024 End: 08-09-2024 Patient encounter procedure Manisha Marc APRN Work Phone: [facility] Work Phone: Start: 08-03-2024 Registered Recurring Manisha Marc APRN Work Phone: [facility] Start: 07-12-2024 End: 07-12-2024 Patient encounter procedure Mario Mcknight PhD Work Phone: [facility] Comment on above: ADHD (attention defi cit hyperactivity disorder), inattentive type (CMS/HCC) (Primary Dx); ALEXX (obstructive sleep apnea); Bipolar affective disorder, remission status unspecified (CMS/HCC); Other chronic pain; Severe anxiety; Severe episode of recurrent major depressive disorder, without psychotic features (HCC) (CMS/HCC) Start: 07-12-2024 End: 07-12-2024 ambulatory MELA ANDERSON Not Available Start: 06-29-2024 Non-patient / Non-visit Sherry Marc APRN Work Phone: [facility] Work Phone: Start: 06-28-2024 End: 06-28-2024 Bamboo luis felipe Mcknight PhD Work Phone: [facility] Start: 06-28-2024 End: 06-28-2024 Bamboo flowsyarely Mcknight PhD Work Phone: [facility] Start: 06-28-2024 End: 06-28-2024 Patient encounter procedure Mario Mcknight PhD Work Phone: [facility] Comment on above: ADHD (attention defi cit hyperactivity disorder), inattentive type (CMS/HCC) (Primary Dx); Cognitive impairment; ALEXX (obstructive sleep apnea); Bipolar affective disorder, remission status unspecified (CMS/HCC); Other chronic pain Start: 06-28-2024 End: 06-28-2024 ambulatory MARIO MCKNIGHT Not Available Start: 06-25-2024 End: 06-25-2024 Departed Referred Manisha Marc PRESIDENT & CEO Work Phone: [facility] [place] Work Phone: Start: 06-25-2024 End: 06-25-2024 ambulatory Manisha Marc PRESIDENT & CEO Work Phone: [facility] Work Phone: Start: 06-25-2024 End: 06-25-2024 Patient encounter procedure Manisha Marc PRESIDENT & CEO Work Phone: [facility] Work Phone: Start: 06-23-2024 ambulatory Facility:[facility] Start: 06-23-2024 End: 06-23-2024 Bamboo flowsheet Christopher Kenny DO Work Phone: [facility] [address] Start: 06-23-2024 End: 06-23-2024 Bamboo flowsheet Christopher Kenny DO Work Phone: [facility] [facility] Start: 06-23-2024 End: 06-23-2024 Office outpatient new 45 minutes Christopher Kenny DO Work Phone: [facility] [facility] Comment on above: Cognitive impairment (Primary Dx); Anxiety Start: 06-23-2024 End: 06-23-2024 ambulatory SAEIDOPHER KENNY Not Available Start: 06-21-2024 End: 06-21-2024 ambulatory ROSITA Marc Work Phone: [facility] Work Phone: Start: 06-21-2024 End: 06-21-2024 Patient encounter procedure ROSITA Marc Work Phone: [facility] Work Phone: Start: 06-18-2024 Non-patient / Non-visit ROSITA Marc Work Phone: [facility] Work Phone: Start: 06-15-2024 End: 06-15-2024 Departed Referred PRESIDENT & CEO Manishaamita Marc Work Phone: [facility] [place] Work Phone: Start: 06-15-2024 End: 06-15-2024 ambulatory PRESIDENT & CEOJosé Miguel ThaoManishaamita Marc Work Phone: [facility] Work Phone: Start: 06-15-2024 End: 06-15-2024 Patient encounter procedure PRESIDENT & CEOJosé Miguel ThaoManishaamita Marc Work Phone: [facility] [place] Work Phone: Start: 06-07-2024 Non-patient / Non-visit PRESIDENT & CEOJosé Miguel Marc Work Phone: [facility] Work Phone: Start: 05-13-2024 Registered Recurring PRESIDENT & CEOJosé Miguel Marc Work Phone: [facility] Start: 04-21-2024 End: 04-21-2024 ambulatory ROSITA Manishaamita Marc Work Phone: [facility] Work Phone: Start: 04-21-2024 End: 04-21-2024 Patient encounter procedure PRESIDENT & CEOJosé Miguel Marc Work Phone: [facility] Work Phone: Start: 04-15-2024 Non-patient / Non-visit PRESIDENT & CEOJosé Miguel Marc Work Phone: [facility] Work Phone: Start: 04-12-2024 Non-patient / Non-visit PRESIDENT & CEOJosé Miguel Marc Work Phone: [facility] Work Phone: Start: 04-03-2024 Registered Recurring PRESIDENT & CEO Layla castrosudheer Marc Work Phone: [facility] Start: 03-16-2024 End: 03-16-2024 ambulatory MELA ANDERSON Not Available Start: 01-01-2024 Registered Recurring PRESIDENT & CEO Layla gloriasudheer Marc Work Phone: [facility] [employer] Start: 11-26-2023 End: 11-26-2023 ambulatory PRESIDENT & CEOJosé Miguel ThaoManishaamita Marc Work Phone: [facility] Work Phone: Start: 11-26-2023 End: 11-26-2023 Patient encounter procedure ROSITA Thaonifer Tari Work Phone: [facility] Work Phone: Start: 11-03-2023 End: 11-03-2023 ambulatory PRESIDENT & CEO Manishaamita Marc Work Phone: [facility] Work Phone: Start: 11-03-2023 End: 11-03-2023 Patient encounter procedure ROSITA Manisha Tari Work Phone: [facility] Work Phone: Start: 10-30-2023 Non-patient / Non-visit ROSITA Marc Work Phone: [facility] Work Phone: Start: 10-08-2023 End: 10-08-2023 ambulatory PRESIDENT & CEOJosé Miguel ThaoManisha Tari Work Phone: [facility] Work Phone: Start: 10-08-2023 End: 10-08-2023 Patient encounter procedure PRESIDENT & CEOJosé Miguel ThaoManisha Charlyacher Work Phone: [facility] [place] Work Phone: Start: 10-06-2023 Non-patient / Non-visit ROSITA Marc Work Phone: [facility] Work Phone: Start: 10-01-2023 End: 10-01-2023 ambulatory ROSITA Marc Work Phone: [facility] Work Phone: Start: 10-01-2023 End: 10-01-2023 Patient encounter procedure ROSITA Marc Work Phone: [facility] Work Phone: Start: 09-10-2023 Registered Recurring ROSITA Marc Work Phone: [facility] Start: 09-03-2023 End: 09-03-2023 Patient encounter procedure ROSITA Marc Work Phone: [facility]- Start: 08-19-2023 End: 08-19-2023 ambulatory Nely Cruz Other [facility] [employer] Other Start: 08-19-2023 IBT FOR OBESITY GROU P 2-10 30M Nely Cruz [facility] Start: 08-19-2023 Registered Recurring ROSITA Marc Work Phone: [facility] Work Phone: Start: 08-19-2023 End: 08-19-2023 Patient encounter procedure ROSITA Marc Work Phone: [facility] Work Phone: Start: 08-14-2023 Registered Recurring ROSITA Marc Work Phone: [facility] Start: 08-13-2023 End: 08-13-2023 ambulatory Manisha Tari Other [employer] Other Start: 08-13-2023 Office outpatient vi sit 15 minutes Manisha Marc [facility] Start: 08-13-2023 End: 08-13-2023 Patient encounter procedure PRESIDENT & CEO Manisha Marc Work Phone: [facility] Work Phone: Start: 07-19-2023 End: 07-19-2023 ambulatory PRESIDENT & CEOJosé Miguel Marc Work Phone: [facility] Work Phone: Start: 07-19-2023 End: 07-19-2023 Patient encounter procedure PRESIDENT & CEOJosé Miguel Marc Work Phone: [facility] Start: 07-15-2023 End: 07-15-2023 ambulatory Celio Mullins Other [facility] [employer] Other Start: 07-15-2023 Follow-up encounter Celio Mullins [facility] Start: 07-15-2023 End: 07-15-2023 Patient encounter procedure ROSITA Marc Work Phone: [facility] Work Phone: Start: 07-07-2023 End: 07-07-2023 ambulatory Michelle Ernandez Other [employer] Other Start: 07-07-2023 Office outpatient vi sit 15 minutes Michelle Ernandez [facility] Start: 07-07-2023 End: 07-07-2023 Patient encounter procedure PRESIDENT & CEOJosé Miguel Marc Work Phone[facility] [place] Work Phone: Start: 07-03-2023 Registered Recurring PRESIDENT & CEOJosé Miguel Marc Work Phone: [facility] [employer] Start: 07-03-2023 End: 07-03-2023 ambulatory PRESIDENT & CEOJosé Miguel Marc Work Phone: [facility] Work Phone: Start: 07-03-2023 End: 07-03-2023 Patient encounter procedure PRESIDENT & CEO Manisha Marc Work Phone: [facility] [place] Work Phone: Start: 07-01-2023 End: 07-01-2023 Patient encounter procedure PRESIDENT & CEO Manisha Marc Work Phone: [facility] [place] Work Phone: Start: 06-29-2023 End: 06-29-2023 ambulatory Michelle Ernandez Other [employer] Other Start: 06-29-2023 Office outpatient vi sit 15 minutes Michelle Ernandez [facility] Start: 06-17-2023 Registered Recurring PRESIDENT & CEOJosé Miguel Marc Work Phone: [facility] Work Phone: Start: 06-11-2023 End: 06-11-2023 ambulatory Manisha Marc Other [employer] Other Start: 06-11-2023 Office outpatient vi sit 25 minutes Manisha Marc [facility] Start: 05-06-2023 End: 05-06-2023 ambulatory Casandra Hassan Other [employer] Other Start: 05-06-2023 Office outpatient vi sit 10 minutes Casandra Hassan [facility] Start: 05-01-2023 End: 05-01-2023 ambulatory Manisha Marc Other [employer] Other Start: 05-01-2023 Telephone encounter Manisha Rico her [facility] Start: 04-30-2023 End: 04-30-2023 ambulatory Manisha Tari Other [employer] Other Start: 04-30-2023 Encounter for genera l adult medical examination without abnormal findings Manisha Tari [facility] Start: 04-30-2023 Periodic preventive med est patient 18-39 yrs Manisha Tari [facility] Start: 04-29-2023 ([facility] WMNI) WMN Init ial Provider Nely Cruz [facility] Start: 04-29-2023 End: 04-29-2023 ambulatory Nely Cruz Other [employer] Other Start: 03-25-2023 End: 03-25-2023 ambulatory Celio Mullins Other [employer] Other Start: 03-25-2023 Nutrition therapy Celio Mullins [facility] Start: 03-25-2023 Telephone encounter Celio Mullins [facility] Start: 03-14-2023 End: 03-14-2023 ambulatory Nely Cruz Other [employer] Other Start: 03-14-2023 Telephone encounter Nely Cruz [facility] Start: 02-11-2023 End: 02-11-2023 ambulatory Casandra Hassan Other [employer] Other Start: 02-11-2023 Office outpatient vi sit 15 minutes Casandra Hassan [facility] [place] Start: 12-31-2022 End: 01-01-[address] MARKO OSCAR . Facility: Start: 11-26-2022 End: 11-27-[address] MARKO OSCAR . Facility:[facility] Start: 11-08-2022 End: 11-09-[address] THADDEUS ROD Facility:[facility] Start: 10-28-2022 End: 10-28-[address] MARKO OSCAR . Facility:[facility] Start: 07-13-2022 End: 07-13-2022 ambulatory Michelle Ernandez Other [employer] Other Start: 07-13-2022 Office outpatient vi sit 15 minutes Michelle Oma [facility] Start: 03-07-2022 End: 03-08-[address] THADDEUS ROD Facility:[facility] Start: 01-25-2022 Encounter for genera l adult medical examination without abnormal findings DR THADDEUS ROD [facility] Start: 01-21-2022 End: 01-22-[address] THADDEUS ROD Facility:[facility] Start: 01-21-2022 End: 01-22-2022 Encounter for general adult medical examination without abnormal findings DR THADDEUS ROD Facility:[facility] Start: 07-06-2021 End: 07-06-2021 ambulatory Michelle Oma Other [employer] Other Start: 07-06-2021 Office outpatient vi sit 15 minutes Michelle Oma [facility] Start: 06-17-2021 Office outpatient vi sit 15 minutes Michelle Oma [facility] Start: 05-31-2021 Office outpatient vi sit 25 minutes Michelle Oma [facility] Start: 08-27-2018 End: 08-27-2018 ambulatory BRENT KINNEY Facility:[facility] Procedures Date Procedure Procedure Detail Performing Clinician Start: 02-17-2025 Urine culture Manisha Marc APRN Work Phone: Start: 11-03-2024 Urine test visual color cmprsn meths Marko Oscar DO Work Phone: Start: 08-19-2024 Esophagogastroduodenoscopy Manisha Marc APRN Work Phone: Start: 08-09-2024 Urine culture Manisha Marc APRN Work Phone: Start: 06-25-2024 Urine culture Manisha Marc PRESIDENT & CEO Work Phone: Start: 06-15-2024 Bacteria identified in Urine by Culture PRESIDENT & CEO Manisha Marc Work Phone: Start: 06-15-2024 Urine culture Manisha Marc PRESIDENT & CEO Work Phone: Start: 11-03-2023 Microscopic observation [Identifier] in Cervix by Cyto stain Gwen Cox DO Work Phone: Start: 10-08-2023 MRI of head PRESIDENT & CEO Manisha Marc Work Phone: Start: 05-31-2021 Piperacillin/tazobactam Michelle Ernandez Other Start: 08-27-2018 extraction, erupted tooth or exposed root (elevation and/or forceps removal) BRENT TROCONIS Start: 08-27-2018 removal of impacted tooth - soft tissue [facility] TROCONIS Start: 08-27-2018 Urine test visual color cmprsn meths BRENT TROCONIS History of cholecystectomy Histo ry of cholecystectomy Manisha Marc APRN Work Phone: History of cholecystectomy Histo ry of cholecystectomy Manisha Martin DNP History of cholecystectomy Histo ry of cholecystectomy Manisha Martin DNP Plan of Treatment Date Care Activity Detail Author Start: 10-29-2027 Screening for malign ant neoplasm of cervix [facility] Start: 11-02-2026 Screening for malign ant neoplasm of cervix Pap Smear [facility] Start: 11-09-2025 End: 11-09-2025 Patient encounter procedure 11/09/2025 3:00 PM EDT Office Visit [facility] [address] [place] [address] Marko Oscar DO [address] [place] [address] [facility] Start: 05-25-2025 [facility] Start: 02-17-2025 Bacteria identified in Urine by Culture Urine Culture [facility] Start: 02-17-2025 Patient referral [facility] Work Phone: Start: 02-17-2025 Urine culture [facility] Start: 11-30-2024 End: 11-30-2024 Professional / ancillary services management 11/30/2024 1:00 PM EDT Ancillary Procedure [facility] [address] [place] [id number] [facility] Start: 11-09-2024 End: 11-09-2024 Patient encounter procedure [facility] Start: 11-03-2024 End: 11-03-2025 US Pelvis US Pelvis w/ TV Imaging Routine PCOS (polycystic ovarian syndrome) Expected: 11/03/2024, Expires: 11/03/2025 [facility] Comment on above: Expected: 11/03/2024 , Expires: 11/03/2025 Start: 11-02-2024 End: 11-02-2024 Patient encounter procedure 11/02/2024 11:00 AM EDT Office Visit [facility] [address] [place] [id number] Marko Oscar DO [address] [place] [address] [facility] Start: 08-19-2024 [facility] Start: 08-16-2024 End: 08-16-2024 Patient encounter procedure 08/16/2024 11:20 AM EST Office Visit [facility] [place] [facility] [address] [place] [address] Consuelo Love, NEVIN [address] [place] [address] [facility] [facility] Start: 07-12-2024 End: 07-12-2024 Patient encounter procedure 07/12/2024 8:00 AM EST [facility] [address] [place] [address] [facility] Start: 06-28-2024 End: 06-28-2024 Patient encounter procedure [facility] Comment on above: Cognitive impairment Start: 06-25-2024 Bacteria identified in Urine by Culture Urine Culture [facility] Start: 06-25-2024 Urine culture [facility] Start: 06-23-2024 End: 06-23-2024 Patient encounter procedure 06/23/2024 12:30 PM EST Office Visit [facility] [place] [id number] Gwen Cox, DO [address] [place] [address] Arrived [facility] Comment on above: Arrived Start: 06-21-2024 Patient referral [facility] Work Phone: Start: 06-15-2024 Bacteria identified in Urine by Culture Urine Culture [facility] Start: 06-15-2024 [facility] Start: 06-15-2024 Urine culture [facility] Start: 04-18-2024 Influenza vaccination Influenza Vacc ine (#1) [facility] CHLAMYDIA TRACHOMATI S (GENITO/STI) CHLAMYDIA TRACHOMATIS (GENITO/STI) Lab Routine Exposure to STD Ordered: 11/03/2024 [facility] Comment on above: Ordered: 11/03/2024 Chlamydia trachomati s DNA [Presence] in Unspecified specimen by SURI with probe detection [facility] Comprehensive metabo lic 1999 panel - Serum or Plasma [facility] Comprehensive metabo lic 1999 panel - Serum or Plasma [facility] CT Heart [facility] CT Neck W contrast IV [facility] Cytology Cervical or vaginal smear or scraping study Pap Smear Pathology and Cytology Routine Well woman exam with routine gynecological exam Ordered: 11/03/2024 [facility] Work Phone: Comment on above: Ordered: 11/03/2024 Holter monitor study [facility] Human papilloma viru s DNA [Presence] in Unspecified specimen by Probe with amplification HPV DNA probe, amplified Microbiology Routine Well woman exam with routine gynecological exam Ordered: 11/03/2024 [facility] Comment on above: Ordered: 11/03/2024 MR Unspecified body region [facility] Neisseria gonorrhoea e DNA [Presence] in Unspecified specimen by SURI with probe detection [facility] Neisseria gonorrhoea e DNA [Presence] in Unspecified specimen by SURI with probe detection Neisseria gonorrhea DNA probe, direct Lab Routine Exposure to STD Ordered: 11/03/2024 [facility] Comment on above: Ordered: 11/03/2024 Patient Education [facility] Work Phone: Patient referral [facility] Work Phone: SURESWAB(R) ADVANCED VAGINITIS PLUS, TMA SURESWAB(R) ADVANCED VAGINITIS PLUS, TMA Pathology and Cytology Routine Vaginal discharge Ordered: 11/03/2024 [facility] Healthcare Comment on above: Ordered: 11/03/2024 Trichomonas vaginali s DNA [Presence] in Unspecified specimen by SURI with probe detection [facility] Urine culture [facility] Immunizations Immunization Date Immunization Notes Care Provider Lillie rogers 08-26-2024 measles, mumps and rubella virus vaccine Manisha Marc PRESIDENT & CEO Work Phone: [facility] 08-26-2024 tetanus toxoid, reduced diphtheria toxoid, and acellular pertussis vaccine, adsorbed Manisha Marc PRESIDENT & CEO Work Phone: [facility] 03-03-2021 Do not use COVID-19 Pfizer 2 dose Manisha Marc Other [facility] 02-10-2021 Do not use COVID-19 Pfizer 2 dose Manisha Marc Other [facility] 08-03-2018 Toradol per 15 mg Michelle Dym ond Other [employer] Other 12-22-1995 diphtheria, tetanus toxoids and acellular pertussis vaccine Manishawilfredo Barclayrbacher PRESIDENT & CEO Work Phone: [facility] 12-22-1995 hepatitis B vaccine, pediatric or pediatric/adolescent dosage Manisha Denyrbacher PRESIDENT & CEO Work Phone: [facility] 12-22-1995 measles, mumps and rubella virus vaccine Manisha Denyrbacher PRESIDENT & CEO Work Phone: [facility] 12-22-1995 poliovirus vaccine, inactivated Manisha Denyrbacher PRESIDENT & CEO Work Phone: [facility] 09-08-1995 hepatitis B vaccine, pediatric or pediatric/adolescent dosage Manisha Denyrbacher PRESIDENT & CEO Work Phone: [facility] 08-04-1995 hepatitis B vaccine, pediatric or pediatric/adolescent dosage Manisha Denyrbacher PRESIDENT & CEO Work Phone: [facility] 03-05-1993 diphtheria, tetanus toxoids and pertussis vaccine Manisha Denyrbacher PRESIDENT & CEO Work Phone: [facility] 03-05-1993 haemophilus influenzae type b vaccine, PRP-T conjugate Manisha Barclayrbacher PRESIDENT & CEO Work Phone: [facility] 03-05-1993 measles, mumps and rubella virus vaccine Manisha Denyrbacher PRESIDENT & CEO Work Phone: [facility] 03-05-1993 poliovirus vaccine, inactivated Manisha Rohrbacher PRESIDENT & CEO Work Phone: [facility] 04-10-1992 diphtheria, tetanus toxoids and pertussis vaccine Manisha Rohrbacher PRESIDENT & CEO Work Phone: [facility] 04-10-1992 haemophilus influenzae type b vaccine, PRP-T conjugate Manisha Denyrbacher PRESIDENT & CEO Work Phone: [facility] 01-25-1992 diphtheria, tetanus toxoids and pertussis vaccine Manisha Denyrbacher PRESIDENT & CEO Work Phone: [facility] 01-25-1992 haemophilus influenzae type b vaccine, PRP-T conjugate Manisha Marc PRESIDENT & CEO Work Phone: [facility] 01-25-1992 poliovirus vaccine, inactivated Manisha Keaner PRESIDENT & CEO Work Phone: [facility] 1991 diphtheria, tetanus toxoids and pertussis vaccine Manisha Marc PRESIDENT & CEO Work Phone: [facility] 1991 haemophilus influenzae type b vaccine, PRP-T conjugate Manisha Marc PRESIDENT & CEO Work Phone: [facility] 1991 poliovirus vaccine, inactivated Manisha Keaner PRESIDENT & CEO Work Phone: [facility] Payers Date Payer Category Payer Self-pay [id number] 2022 Private Health Insurance [id number] 1991 Unknown [id number] [id number]. 732 1991 Unknown [id number] 2.16.840.1.333779.3.579.2. 593 1991 Unknown [id number] 2.16.840.1.343448.3.579.2. 593 1991 Unknown [id number] 2.16.840.1.861064.3.579.2. 593 1991 Unknown [id number] 2.16.840.1.958306.3.579.2. 593 1991 Unknown [id number] 2.16.840.1.861438.3.579.2. 593 1991 Unknown [id number] 2.16.840.1.120351.3.579.2. 593 1991 Unknown [id number] 2.16.840.1.632106.3.579.2. 9 1991 Unknown [id number] 2.16.840.1.811079.3.579.2. 9 1991 Unknown [id number] 2.16.840.1.216998.3.579.2. 9 1991 Unknown [id number] 2.16.840.1.611075.3.579.2. 9 1991 Unknown [id number] 2.16.840.1.314929.3.579.2. 9 1991 Unknown [id number] 2.16.840.1.272901.3.579.2. 9 1991 Unknown [id number] 2.16.840.1.786972.3.579.2. 9 1991 Unknown [id number] 2.16.840.1.728330.3.579.2. 9 1991 Unknown [id number] 2.16.840.1.239662.3.579.2. 196 1991 Unknown [id number] 2.16.840.1.076544.3.579.2. 196 1959 Medicaid [id number] 1959 Unknown [id number] [place] [id number] Unknown [id number] 2.16.840.1.855600.3.579.2. 531 Unknown [id number] 2.16.840.1.934470.3.579.2. 531 Unknown [id number] 2.16.840.1.978517.3.579.2. 531 Unknown [id number] 2.16.840.1.556705.3.579.2. 531 Unknown [id number] 2.16.840.1.387721.3.579.2. 531 Unknown [id number] 2.16.840.1.741548.3.579.2. 531 Unknown [id number] 2.16.840.1.240970.3.579.2. 531 Social History Date Type Detail Facility Unknown if ever smoked [facility] [employer] Other Start: 03-11-2023 End: 03-16-2024 Sex Assigned At [employer] Other Start: 12-07-2021 End: 06-03-2025 Tobacco smoking status NHIS Never smoked tobacco (finding) [facility] Start: 1990 Sex Assigned At Female [facility] Start: 05-31-2024 End: 11-03-2024 Alcoholic beverage intake Not Asked [facility] Start: 07-24-2023 End: 03-16-2024 History of Social function [facility] Start: 03-11-2023 Gender identity Identifies as female gender (finding) [facility] Start: 06-25-2024 End: 11-15-2024 Sex Female (finding) [facility] N [facility] NEGATED: Highlighted row N [facility] Goals Date Patient Goal Desired Activity /State Clinical Notes 05-31-2021 to 05-25-2025 Note Date & Type Note Facility 05-25-2025 Evaluation note Authored May 25, 2025 3:53pm 1. Atypical chest pain 2. Subjective sensation of palpitations associated with sinus rhythm or sinus tachycardia as confirmed by Zio patch cardiac monitoring. No elevated risk arrhythmias identified and/or associated with patient's symptoms 3. Dyspnea is likely multifactorial but appears primarily related to patient's morbid obesity [facility] Work Phone: 1(384) 493-637807-17-2025 Evaluation note* Diagnosis Onset Date Resolution Status Admit Date Spondylosis of lumbar region without myelopathy or radiculopathy acute March 03, 2025 10:06am Pruritus of scalp acute March 112024 12:07pm Hypertension acute March 22, 2025 7:59am Insulin resistance acute March 22, 2025 7:59am Palpitations acute March 22, 2025 7:59am Prediabetes acute March 22 7:59am Unable to lose weight acute Mar 7:59am Vitamin B12 deficiency acute [facility] 2024 7:59am Vitamin D deficiency acute 2024 7:59am Bacterial conjunctivitis acute March 29, 2025 10:31am Abnormal weight gain acute 2024 9:39am Asthma acute April 15 9:39am Bipolar 2 disorder acute April 15, [...] 15, 2025 9:39am Iron deficiency anemia acute [facility] 2024 9:39am Major depressive disorder acute April 15, 2025 9:39am Migraine acute April 15 9:39am Obstructive sleep apnea acute A ugust 2024 9:39am PCOS (polycystic ovarian syndrome) acute April 15 9:39am Prediabetes acute April 15, 2025 9:39am Vitamin B12 deficiency acute [facility] 2024 9:39am Viral gastroenteritis acute Apr 4:18pm Cellulitis acute April 10:41am [facility] Work Phone: 1(605) 653-349507-03-2025 Evaluation note* Diagnosis Onset Date Resolution Status Admit Date Degenerative lumbar disc acute February 17, 2025 10:53am Food insecurity acute February 17, 2025 10:53am Insulin resistance acute February 172024 10:53am Morbid obesity acute February 17, 2025 10:53am Prediabetes acute February 17 10:53am UTI (urinary tract infection) acute February 17, 2025 10:53am [facility] Work Phone: 1(604) 550-754007-03-2025 Evaluation note* Diagnosis Onset Date Resolution Status [...] tract infection) acute February 17, 2025 10:53am [facility] Work Phone: 1(768) 252-132207-03-2025 Evaluation note* Diagnosis Onset Date Resolution Status [...] drug, adverse noneactive J humaira 2024 4:45pm [facility] Work Phone: 1(284) 391-523907-03-2025 Evaluation note* Diagnosis Onset Date Resolution Status [...] or radiculopathy acute March 03, 2025 10:06am [facility] Work Phone: 1(200) 271-759007-03-2025 Evaluation note* Diagnosis Onset Date Resolution Status [...] 22, 2025 7:59am Prediabetes acute March 22, 7:59am Unable to lose weight acute Mar us2024 7:59am Vitamin B12 deficiency acute [place] 2024 7:59am Vitamin D deficiency acute [facility] 2024 7:59am [facility] Work Phone: 1(854) 737-710407-03-2025 Evaluation note* Diagnosis Onset Date Resolution Status [...] 22, 2025 7:59am Prediabetes acute March 22 025 7:59am Unable to lose weight acute Mar 7:59am Vitamin B12 deficiency acute 2024 7:59am Vitamin D deficiency acute 2024 7:59am Bacterial conjunctivitis acute March 29, 2025 10:31am Abnormal weight gain acute 2024 9:39am Asthma acute April 15 9:39am Bipolar 2 disorder acute April 15, [...] 15, 2025 9:39am Iron deficiency anemia acute [facility] 2024 9:39am Major depressive disorder acute April 15, 2025 9:39am Migraine acute April 15 9:39am [facility]ive [facility] 9:39am PCOS (polycystic ovarian syndrome) acute April 15 9:39am Prediabetes acute April 15, 2025 9:39am Vitamin B12 deficiency acute [facility] 2024 9:39am [facility] Work Phone: 1([phone]) 733-434007-03-2025 Evaluation note* Diagnosis Onset Date Resolution Status [...] acute Mar 7:59am Vitamin B12 deficiency acute [facility] 2024 7:59am Vitamin D deficiency acute 2024 7:59am Bacterial conjunctivitis acute March 29, 2025 10:31am Abnormal weight gain acute 2024 9:39am Asthma acute April 15 9:39am Bipolar 2 disorder acute April 15, [...] 15, 2025 9:39am Iron deficiency anemia acute [facility] 2024 9:39am Major depressive disorder acute April 15, 2025 9:39am Migraine acute April 15 9:39am Obstructive sleep apnea acute A ugust 2024 9:39am PCOS (polycystic ovarian syndrome) acute April 15 9:39am Prediabetes acute April 15, 2025 9:39am Vitamin B12 deficiency acute [facility] 2024 9:39am Viral gastroenteritis acute Apr 4:18pm Cellulitis acute April 10:41am [facility] Work Phone: 1(772) 176-814407-01-2025 Evaluation note* Diagnosis Onset Date Resolution Status Admit Date Degenerative lumbar disc acute February 17, 2025 10:53am Food insecurity acute February 17, 2025 10:53am Insulin resistance acute February 172024 10:53am Morbid obesity acute February 17, 2025 10:53am Prediabetes acute February 17 10:53am UTI (urinary tract infection) acute February 17, 2025 10:53am [facility] Work Phone: 1(764) 915-328703-19-2025 History of Present illness Narrative* Cici [place], WEI - 11/03/2024 3:20 PM EDT Reason for [...] nursing note reviewed. Exam conducted with a press shop supervisor present. Vitals: Estimated body mass index is [...] of: Marko Oscar DO documented in this encounterLafayette Regional Health [id number] Evaluation note* Diagnosis Onset Date Resolution Status Admit Date Encounter for antibody response examination acute August 10:57am History of seizures acute Augua ry 2024 10:57am Hypertension acute August 24, 2024 10:57am [facility] deficiency [facility] 20[facility] 10:57am PCOS (polycystic ovarian syndrome) acute August 24 10:57am Severe obesity (BMI >= 40) acute August 24, 2024 10:57am Wellness examination acute Al tatianna2024 10:57am Cellulitis acute August 28, 2024 1:44pm Viral illness acute September 272024 3:23pm Swelling, mass, or lump in head and neck acute November 15, 2024 1:32pm [facility] Work Phone: 1(740) 687-215001-02-2025 [place] [address] Colonoscopy Procedure Report Signed Patient: Ashly Mehta MR#: [id number] : 1990 Acct:[id number] Age/Sex: 33 / F Adm Date: 5 Loc: Room: Type: [facility] Attending Dr: Hilaria Burgos DO Copies to: Hilaria Burgos, DO Manisha Marc APRN, BRINE SUPERVISOR~ Colonoscopy Date/Provider 08/19/2024 Hilaria Burgos DO Narrative [...] slowly withdrawn with the findings as below. Casey bowel prep score was Fair. Findings: The [...] Burgos DO 08/19/24 0859 Signed By: 08/19/24 1033 [facility]01-02-2025 [facility] [address] [place] [address] EGD Procedure Note Signed Patient: Ashly Mehta MR#: [id number] : 1990 Acct:[id number] Age/Sex: 33 / F Adm Date: 5 Loc: Room: Type: [facility] Attending Dr: Hilaria Burgos DO Copies to: DO Manisha Chakraborty APRN, BRINE SUPERVISOR~ Esophagogastroduodenoscopy Date/Provider Date: 08/19/2024 Hilaria Burgos DO [...] DO 08/19/24 0859 Signed By: 08/19/24 1009 [facility]01-02-2025 History and physical [address] [address] Gastroenterology H&P Signed Patient: Ashly Mehta MR#: [id number] : 1990 Acct:[id number] Age/Sex: 33 / F Adm Date: 5 Loc: Room: Type: [facility] Attending Dr: Hilaria Burgos DO Copies [...] History of Present illness Narrative * Consuelo Ivan, NEVIN - 08/16/2024 11:20 AM EST Images [...] her psychiatrist plans to get her a top case assembler soon. The patient reports difficulty maintaining jobs [...] wrist extensors , wrist flexor , and etcher apprentice strength 5/5. LUE strength deltoid , biceps , triceps , wrist extensors , wrist flexor , and etcher apprentice strength 5/5. RLE strength iliopsoas, quadriceps, tibialis [...] reflex 2+. LLE knee reflex 2+. Coordination: Fvxdbu-pv-tgux testing normal. Rapid alternating movements are normal. Gait: Normal. Review and summary of old records: Neuropsychological evaluation at [facility] on 07/12/2024: Current [...] her psychiatrist to establish care with a top case assembler, and I believe this is a good [...] NP [facility] documented in this encounterLafayette Regional Health [id number] Evaluation note* Diagnosis Onset Date Resolution Status [...] 10:57am Cellulitis acute August 28, 2024 1:44pm [facility] Work Phone: 1([phone]) 429-927211-25-2024 History of Present illness Narrative* Mario Mcknight, [...] any history of alcohol/substance abuse or smoking. [place] language Bangladeshi. Completed an associate's degree and was 24 credits shy of a bachelor's degree. Struggled academically and with attention. 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 Responsible for tending to the needs of [...] design >16th %ile. Motor/Speed of Processing: Right-handed. Plastering Contractor strength 24th %ile with right- hand, 62nd [...] Learning of a word list 31st %ile (1-8-68-13-13), delayed recall 16th %ile. Recognition discriminability 69th [...] of this individual. Please contact me with [employer] at [phone]. documented in this encounterLafayette Regional Health [id number] History of Present illness Narrative* Mario Mcknight, [...] any history of alcohol/substance abuse or smoking. [place] language Bangladeshi. Completed an associate's degree and was 24 credits shy of a bachelor's degree. Struggled academically and with attention. 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 Responsible for tending to the needs of [...] of this individual. Please contact me with [employer] at [phone]. documented in this encounterLafayette Regional Health [id number] History of Present illness Narrative* Gwen Cox, [...] , wrist extensors , wrist flexor , etcher apprentice strength 5/5. LUE Strength deltoid , biceps , triceps , wrist extensors , wrist flexor , etcher apprentice strength 5/5. RLE Strength illopsoas, quadriceps, tibialis [...] reflex 2+ . Valiente's sign negative. Coordination: Kngwtu-ie-xssy testing and rapid alternating movements are normal [...] plan, and return instructions documented in this [facility]10-29-2024 Evaluation note* Diagnosis Onset Date Resolution Status Admit Date Acute UTI acute June 15, 2024 9:22am Fatty liver disease, nonalcoholic acute June 21 11:13am Frequent UTI acute June 11:13am Obstructive sleep apnea acute N ov2023 11:13am UTI (urinary tract infection) acute June 21, 2024 11:13am Dysuria acute June 25, 2024 9:05am Dysuria acute August 09, 2024 3:46pm Excessive sweating acute [facility] 2023 3:46pm [facility] Work Phone: 1([phone]) [phone] Evaluation note* Diagnosis Onset Date Resolution Status Admit Date Acute UTI acute June 15, 2024 9:22am Fatty liver disease, nonalcoholic acute June 21 11:13am Frequent UTI acute June 11:13am Obstructive sleep apnea acute N ov2023 11:13am UTI (urinary tract infection) acute June 21, 2024 11:13am Dysuria acute June 25, 2024 9:05am Dysuria acute August 09, 2024 3:46pm Excessive sweating acute [facility] er 2023 3:46pm Encounter for antibody response examination acute August 10:57am Wellness examination acute Al2024 10:57am Immunization status unknown deleted August 24, 2024 10:57am [facility] Work Phone: 1([phone]) 972-785510-29-2024 Evaluation note* Diagnosis Onset Date Resolution Status [...] Wellness examination acute Al tatianna 2024 10:57am [facility] Work Phone: 1(737) 474-158209-04-2024 Evaluation note* Diagnosis Onset Date Resolution Status [...] tract infection) acute June 21, 2024 11:13am [facility] Work Phone: 1(626) 371-770609-04-2024 Evaluation note* Diagnosis Onset Date Resolution Status [...] 11:13am Dysuria acute June 25, 2024 9:05am [facility] Work Phone: 1(359) 276-632401-02-2024 Evaluation note* Encounter Date Diagnosis Assessment Notes Treatment Notes Treatment Clinical Notes Aug, Obesity, unspecified classification, unspecified obesity type, unspecified whether serious comorbidity present (ICD-10 - E66.9) Aug, BMI 50.0-59.9, adult (ICD-10 - Z68.43) Aug, Other Summary of Visi t: (A) Importnace of planning to simplify meals (B) Deconstructed Meals (C) Sharing meal ideas (D) Plate method for meal planning ; grocery shortcuts [employer] Other 12-27-2023 Evaluation note* Encounter Date Diagnosis [...] You have been given relevant education handouts. [employer] Other 11-28-2023 Evaluation note* Encounter Date Diagnosis [...] voice recognition software. Please excuse errors in promotions officer. Jun, Dietary surveillance and counseling (ICD-10 - [...] metformin 1000 mg total daily, managed by HEALTH EVALUATOR Jun, Asthma (ICD-10 - J45.909) Jun, Migraine (ICD-10 - G43.909) Jun, Primary hypertension (ICD-10 - I10) Currently on pharmacotherapy Potential for overtreatment given lightheadedness Jun, Other An additional 9 minutes was spent counseling the patient on behavior modification including proper nutrition and physical activity. [employer] Other 11-20-2023 Evaluation note* Encounter Date Diagnosis [...] until you feel better. You may take yqhz-llm-wnkvdzu Imodium for diarrhea as needed. Avoid dairy foods as well as greasy fried foods. Follow-up with your physician if no improvement in 2 to 3 days. May return to work on Jun, Diarrhea, unspecified type (ICD-10 - R19.7) Diarrhea: adult home care material was printed [employer] Other 11-12-2023 Evaluation note* Encounter Date Diagnosis [...] to 3-day Jun, Bronchitis (ICD-10 - J40) [employer] Other 10-25-2023 Evaluation note* Encounter Date Diagnosis Assessment Notes Treatment Notes Treatment Clinical Notes May, Degenerative lumbar disc (ICD-10 - M51.36) L4-5 Pt would like a referral to pain management regarding her chronic back pain. Her last x-ray of the lumbar spine was completed 10/2022 at [facility]--reviewed and in scanned documents. Referral [...] disorder (ICD-10 - F31.81) Referral placed to [facility] for medication mangement. [employer] Other 09-19-2023 Evaluation note* Encounter Date Diagnosis Assessment Notes Treatment Notes Treatment Clinical Notes Apr, Exposure to head lice (ICD-10 - Z20.7) Discussed with patient exam is without any signs of current lice infection. May return to work tomorrow. Patient completed next treatment yesterday. Patient verbalized understanding. [employer] Other 09-14-2023 Evaluation note* Encounter Date Diagnosis Assessment Notes Treatment Notes Treatment Clinical Notes Apr, Primary hypertension (ICD-10 - I10) [employer] Other 09-13-2023 Evaluation note* Encounter Date Diagnosis [...] (ICD-10 - R73.01) Will obtain records from [facility] for most recent labs. Patient [...] Low back pain, unspecified (ICD-10 - M54.50) [employer] Other 09-12-2023 Evaluation note* Encounter Date Diagnosis [...] 2) Aim for < 45 g carb/meal [employer] Other 08-08-2023 Evaluation note* Encounter Date Diagnosis [...] voice recognition software. Please excuse errors in promotions officer. Mar, Dietary surveillance and counseling (ICD-10 - [...] as sweet tea, replace ice cream with [place]gu[place] yogurt, use protein shake in the a.m. [...] with the patient, and documenting clinical information. [employer] Other 06-27-2023 Evaluation note* Encounter Date Diagnosis [...] 7 days, sooner if significantly worsening symptoms. [employer] Other 11-26-2022 Evaluation note* Encounter Date Diagnosis [...] 3 days. Off work today and tomorrow [employer] Other 11-19-2021 Evaluation note* Encounter Date Diagnosis [...] Patient care instructions given in writting by [facility] document. [employer] Other 10-31-2021 Evaluation note* Encounter Date Diagnosis [...] Patient care instructions given in writting by [facility] document. [employer] Other 10-14-2021 Evaluation note* Encounter Date Diagnosis Assessment Notes Treatment Notes Treatment Clinical Notes May, Dysuria (ICD-10 - R30.0) May, Urinary tract infection, site not specified (ICD-10 - N39.0) 14 May, 2021 Hematuria, unspecified (ICD-10 - R31.9) [facility] [employer] Other Evaluation noteNo InformationNortWVU Medicine [facility] [employer] Other Evaluation noteNo assessment information available [facility] Work Phone: evaluation note* Diagnosis Onset Date Resolution Status Dietary surveillance and counseling acute Exercise counseling acute Food insecurity acute PCOS (polycystic ovarian syndrome) acute Prediabetes acute Severe obesity (BMI >= 40) a [facility] Work Phone: Evaluation note* Diagnosis Onset Date Resolution Status Dietary surveillance and counseling acute Exercise counseling acute Food insecurity acute PCOS (polycystic ovarian syndrome) acute Prediabetes acute Severe obesity (BMI >= 40) a cute Lightheadedness acute Menorrhagia acute Palpitations acute [facility] Work Phone: evaluation note* Diagnosis Onset Date Resolution Status Dietary surveillance and counseling acute Exercise counseling acute Food insecurity acute PCOS (polycystic ovarian syndrome) acute Prediabetes acute Severe obesity (BMI >= 40) a cute Lightheadedness acute Menorrhagia acute Palpitations acute Dietary surveillance and counseling acute Exercise counseling acute Severe obesity (BMI >= 40) a [facility] Work Phone: evaluation note* Diagnosis Onset Date Resolution Status Lightheadedness acute Menorrhagia acute Palpitations acute Dietary surveillance and counseling acute Exercise counseling acute Severe obesity (BMI >= 40) a [facility] Work Phone: Evaluation note* Diagnosis Onset Date Resolution Status Aphasia acute History of seizures acute Memory loss acute Migraine acute [facility] Work Phone: Evaluation note* Diagnosis Onset Date Resolution Status Aphasia acute Apnea acute Fatigue acute History of seizures acute Loud snoring acute Memory loss acute Migraine acute Morbid obesity acute Acute UTI acute [facility] Work Phone: evaluation note* Diagnosis Onset Date Resolution Status Aphasia acute Apnea acute Fatigue acute History of seizures acute Loud snoring acute Memory loss acute Migraine acute Morbid obesity acute Acute UTI acute Fatty liver disease, nonalcoholic acute Frequent UTI acute UTI (urinary tract infection) acute [facility] Work Phone: Evaluation note* Diagnosis Cognitive [...] Note Date/Time August 19, 2024 9: 54am [facility] [address] [place] [address] Gastroenterology H&P Signed Patient: Ashly Mehta MR#: [id number] : 1990 Acct:[id number] Age/Sex: 33 / F Adm Date: 5 Loc: Room: Type: [facility] Attending Dr: Hilaria Burgos DO Copies to: Hilaria Burgos, DO Manisha Marc APRN, BRINE SUPERVISOR~ Date of Service: 08/19/2024 HISTORY & PHYSICAL: [...] <Electronically signed by Hilaria Burgos DO> 08/19/24 1969 [facility] Work Phone: History general Narrative - Reported* [...] Pneumonia Hospitalization History Hospitalized for blood l [place] 2010 [employer] Other history general Narrative - Reported* Type [...] History Hospitalized for blood l [facility] 2010 [employer] Other history general Narrative - Reported* Type [...] History Hospitalized for blood l oss 2010 [employer] Other history general Narrative - Reported* Type [...] History Hospitalized for blood l oss 2010 [employer] Other history general Narrative - Reported* Type [...] History Hospitalized for blood l oss 2010 [employer] Other history general Narrative - Reported* Type [...] History Hospitalized for blood l oss 2010 [employer] Other History general Narrative - Reported* Type [...] History Hospitalized for blood l oss 2010 [employer] Other Hospital Discharge instructionsAmbulatory Orders* Referral to Gastroenterology Time Frame: 06/21/24, Location: None Selected * Referral to Urology Time Frame: 06/21/24, Location: None Selected [facility] Work Phone: Hospital Discharge instructionsAmbulatory Orders* Disability Placard Time Frame: 02/17/25, Location: Determined By Patient * Referral to Weight Management Time Frame: 02/17/25, Location: None Selected [facility] Work Phone: Reason for referral (narrative)* Reason *FU 06/20 would li ke a referral to pscyiatrist -- was recently diagnosed with bipolar and would like medication management. Diagnosis 1 Bipolar 2 disorder ( F31.81) Referral Organization [facility] Referring Provider First Name Manisha Referring Provider Last Name Charlyachetad Referring Provider Specialty Nurse Pract itioner Referred Organization [facility] Barbara Mcdaniels Referred Address [address],[facility],[place],[address] Referred Provider Specialty Psychiatry Referral Priority Routine General Notes Paola Henderson 01:25:30 PM >received today, not sure if [facility] does medication management, waiting for notes to be locked Paola Henderson 06/13/2023 10:34:39 AM >notes locked, referral faxed Clinical Notes p: [phone] f: [id number] [place] [facility] Reason *FU 06/20 would li yaneli a referral to pain management for other options for pain control for back pain Diagnosis 1 Degenerative lumbar disc (M51.36) Referral Organization [facility] Referring Provider First Name Manisha Referring Provider Last Name Tari Referring Provider Specialty Nurse Prachari orozco Referred Organization [facility] Referred Provider Yrn Parsons Referred Address [address] [facility] [facility],[place], [place],[address] Referred Provider Specialty Pain Medicin e Referral Priority Routine General Notes Paola Henderson 01:21:23 PM >received today, waiting for notes to be locked Paola Henderson 06/13/2023 10:25:26 AM >notes locked, referral faxed Clinical Notes f: [phone] [employer] Other Reason for referral (narrative)No reason for referral information availableGlenbeigh Hospital Work Phone: Reason for visit Narrative* Consultation (Routine) - Closed Specialty Diagnoses / Procedures Referred By Ela noriega Referred To Contact Neurology Diagnoses Aphasia Personal history of other specified conditions Other amnesia Procedures OK OFFICE/OUTPATIENT NEW LOW MDM 30 MINUTES Manisha Marc NP [address] [address] [place] [address] Phone: tel: fax: Sugey Dinero MD [address] [place] [address] Phone: tel: fax: Referral ID Status Reason Start Date Expiration Date V isits Requested Visits Authorized [id number] Closed Consult and Treat 05/28/2024 11/24/2024 1 1 [facility] Narrative* Consultation (Routine) - Closed Specialty Diagnoses / Procedures Referred By Ela noriega Referred To Contact Psychology Diagnoses Cognitive impairment Procedures OK OFFICE/OUTPATIENT NEW HIGH MDM 60 MINUTES Gwen Cox DO [address] [place] [address] Phone: tel: fax: Mario Mcknight, PhD [address] [place] [id number] Phone: tel: fax: Referral ID Status Reason Start Date Expiration Date V isits Requested Visits Authorized [id number] Closed Specialty Services Required 06/23/2024 12/20/2024 1 1 [facility] Healthcare Summary Purpose Family History Relationship Condition [...] 24, 2024 10:57am PCOS (polycystic ovarian syndrome) [facility] 2024 10:57am Severe obesity (BMI >= 40) [...] 24, 2024 10:57am PCOS (polycystic ovarian syndrome) [facility] 2024 10:57am Severe obesity (BMI >= 40) [...] 17, 2025 10:53am Chief Complaint Admit Date February 16, 2025 10:00 am UTI Symptoms/Discuss [...] April 15 9:39am Dietary surveillance and counseling [facility] 2024 9:39am Exercise counseling April 15, 2025 9: 39am Fatty liver disease, nonalcoholic April 15, 2025 9:39am History of cholecystectomy April 15, 2025 9:39am History of seizures April 15, 2025 9: 39am Hypertension April 15, 2025 9: 39am Iron deficiency anemia April 15, 2025 9:39am Major depressive disorder April 15, 2 025 9:39am Migraine April 15, 2025 9: [...] :13pm upset stomach, nausea April 21 4:18pm Chief Complaint Admit Date UTI Symptoms/Discuss Health February 17 10:53am R35.0 February 17, 2025 11:14 am Mouth pain February 22, 2025 4:45p m Spinal stenosis, lumbar region with neur ogenic cla March 03, 2025 10:06am Lice check March 11, 2025 12:0 7pm Discuss heart health March 22, 2025 7: 59am poss pink eye March 29, 2025 10 :31am [place] (QDone) April 15, 2025 9:39am Amb Documentation April 15, 2025 12 :13pm upset stomach, nausea April 21 4:18pm BH May 06, 2025 10:00am Concern of spot on right leg April 192024 10:41am Reason for Visit Admit Date Communication deficit [...] April 15 9:39am Dietary surveillance and counseling [facility] 2024 9:39am Exercise counseling April 15, 2025 9: 39am Fatty liver disease, nonalcoholic April 15, 2025 9:39am History of cholecystectomy April 15, 2025 9:39am History of seizures April 15, 2025 9: 39am Hypertension April 15, 2025 9: 39am Iron deficiency anemia April 15, 2025 9:39am Major depressive disorder April 15, 2 025 9:39am Migraine April 15, 2025 9: 39am Obstructive sleep apnea April 15 9:39am PCOS (polycystic ovarian syndrome) Augus t 2024 9:39am Prediabetes April 15, 2025 9: 39am Vitamin B12 deficiency April 15, 2025 9:39am Viral gastroenteritis April 21 4:18pm Cellulitis May 13, 2025 10:41am Chief Complaint Admit Date Spinal stenosis, lumbar region with neur ogenic cla March 03, 2025 10:06am Lice check March 11, 2025 12:0 7pm Discuss heart health March 22, 2025 7: 59am poss pink eye March 29, 2025 10 :31am [place] (QDone) April 15, 2025 9:39am Amb Documentation April 15, 2025 12 :13pm upset stomach, nausea April 21 4:18pm BH May 10, 2025 10:00am Concern of spot on right leg April 192024 10:41am Tachycardia May 25, 2025 2: 58pm Reason for Visit Admit Date Spondylosis of lumbar region without myelopathy or [...] Vitamin B12 deficiency April 15, 2025 9:39am Viral gastroenteritis April 21 4:18pm Cellulitis May 13, 2025 10:41am Class 3 severe obesity with body mass index (BMI) of 50.0 to 59.9 in adult May 25, 2025 2:58pm Dyspnea May 25, 2025 2: 58pm Hypertension May 25, 2025 2: 58pm Lightheadedness May 25, 2025 2: 58pm Obstructive sleep apnea May 25 2:58pm Palpitations May 25, 2025 2: 58pm Reason for Visit Admit Date Spondylosis of lumbar region without myelopathy or [...] 15 9:39am Dietary surveillance and counseling Augu 2024 9:39am Exercise counseling April 15, 2025 9: 39am Fatty liver disease, nonalcoholic April 15, 2025 9:39am History of cholecystectomy April 15, 2025 9:39am History of seizures April 15, 2025 9: 39am Hypertension April 15, 2025 9: 39am Iron deficiency anemia April 15, 2025 9:39am Major depressive disorder April 15, 2 025 9:39am Migraine April 15, 2025 9: 39am Obstructive sleep apnea April 15 9:39am PCOS (polycystic ovarian syndrome) Augus t 2024 9:39am Prediabetes April 15, 2025 9: 39am Vitamin B12 deficiency April 15, 2025 9:39am Viral gastroenteritis April 21 4:18pm Cellulitis May 13, 2025 10:41am Chief Complaint Admit Date Lice check March 11, 2025 12:0 7pm Discuss heart health March 22, 2025 7: 59am poss pink eye March 29, 2025 10 :31am [place] (QDone) April 15, 2025 9:39am Amb Documentation April 15, 2025 12 :13pm upset stomach, nausea April 21 4:18pm Concern of spot on right leg April 192024 10:41am Tachycardia May 25, 2025 2: 58pm BH May 31, 2025 3 :09pm Reason for Visit Admit Date Pruritus of scalp March 11, 2025 12:0 [...] Vitamin B12 deficiency April 15, 2025 9:39am Viral gastroenteritis April 21 4:18pm Cellulitis May 13, 2025 10:41am Class 3 severe obesity with body mass index (BMI) of 50.0 to 59.9 in adult May 25, 2025 2:58pm Dyspnea May 25, 2025 2: 58pm Hypertension May 25, 2025 2: 58pm Lightheadedness May 25, 2025 2: 58pm Obstructive sleep apnea May 25 2:58pm Palpitations May 25, 2025 2: 58pm Abnormal weight gain June 03, 2025 10:07am Asthma June 03, 2025 1 0:07am Bipolar 2 disorder June 03, 2025 1 0:07am BMI 50.0-59.9, adult June 03, 2025 10:07am Class 3 severe obesity with body mass index (BMI) of 50.0 to 59.9 in adult June 03, 2025 10:07am Degenerative lumbar disc June 03, 2 025 10:07am Dietary surveillance and counseling Octo citlaly 2024 10:07am Exercise counseling June 03, 2025 1 0:07am Fatty liver disease, nonalcoholic Octobe r 2024 10:07am History of cholecystectomy June 03, 2025 10:07am History of seizures June 03, 2025 1 0:07am Hypertension June 03, 2025 1 0:07am Iron deficiency anemia June 03 10:07am Major depressive disorder June 03, 2025 10:07am Migraine June 03, 2025 1 0:07am Obstructive sleep apnea June 03 10:07am PCOS (polycystic ovarian syndrome) Octob er 2024 10:07am Prediabetes June 03, 2025 1 0:07am Vitamin B12 deficiency June 03 10:07am Additional Source Comments INFORMATION SOURCE (unrecogn ized section and content) DATE CREATED AUTHOR 08/27/2021 [facility] DATE CREATED AUTHOR AUTHOR'S ORGANIZ ATION 01/01/2023 [facility] DATE CREATED AUTHOR AUTHOR'S ORGANIZ ATION 06/25/2024 [place] [facility] DATE CREATED AUTHOR AUTHOR'S ORGANIZ ATION 12/02/2024 [facility] EPIC DATE CREATED AUTHOR AUTHOR'S ORGANIZ ATION [facility]/2025 [facility] DATE CREATED AUTHOR AUTHOR'S ORGANIZ ATION 03/19/2025 [facility] DATE CREATED AUTHOR AUTHOR'S ORGANIZ ATION 06/01/2025 [facility] REASON FOR VISIT (unrecogniz ed section and content) Reason Comments Memory difficulty Reason Comments Well Women Visit STI Screening Care Teams (unrecognized sec tion and content) Team Status: Active Member Role Status Dates Manisha Marc APRN COMPONENT ASSEMBLER-C Primary Care Provider Active Team Status: Active Member Role Status Dates Manisha Marc APRN COMPONENT ASSEMBLER-[place] Primary Care Provider, Attending Provider Active Team Status: Inactive Member Role Status Dates Manisha Marc APRN COMPONENT ASSEMBLER-C Primary Care Provider Active Celio Mullins DO Attending Provider Active Team Status: Inactive Member Role Status Dates Manisha Marc APRN COMPONENT ASSEMBLER-C Primary Care Provider Active Clinton Frazier MD Attending Provider Active Team Status: Inactive Member Role Status Dates Manisha Marc APRN COMPONENT ASSEMBLER-C Primary Care Provider Active Start: July 032022 End: July 03, 2023 Celio Mullins DO Attending Provider Active St art: July 03, 2023 End: July 03, 2023 Team Status: Active Member Role Status Dates Manisha Marc APRN COMPONENT ASSEMBLER-C Primary Care Provider Active Start: July 032022 Edward Gilmore MD Attending Provider Active Start: July 03, 2023 Team Status: Inactive Member Role Status Dates Michelle Ernandez COMPONENT ASSEMBLER-C Attending Provider Active S tart: July 07, 2023 End: July 07, 2023 Team Status: Inactive Member Role Status Dates Celio Mullins DO Attending Provider Active St art: July 15, 2023 End: July 15, 2023 Team Status: Inactive Member Role Status Dates Manisha Marc APRN COMPONENT ASSEMBLER-C Primary Care Provider Active Start: July End: July 19, 2023 Clinton Frazier MD Attending Provider Active Start: July 19, 2023 End: July 19, 2023 Team Status: Inactive Member Role Status Dates Manisha Marc APRN COMPONENT ASSEMBLER-C Attending Provider Act rafal Start: August 13, 2023 End: August 13, 2023 Team Status: Inactive Member Role Status Dates Nely Cage , [facility] Attending Provider Active Start: August 19, 2023 End: August 19, 2023 Team Status: Active Member Role Status Dates Manisha Marc APRN COMPONENT ASSEMBLER-C Primary Care Provider, Attending Provider Active Start: August 19, 2023 Team Status: Inactive Member Role Status Dates Manisha Marc APRN COMPONENT ASSEMBLER-C Attending Provider Act rafal Start: September 03, 2023 End: September 03, 2023 Team Status: Inactive Member Role Status Dates Manisha Marc APRN COMPONENT ASSEMBLER-C Primary Care Provider Active Start: October 012023 End: October 01, 2023 Celio Mullins DO Attending Provider Active St art: October 01, 2023 End: October 01, 2023 Team Status: Active Member Role Status Dates Manisha Marc APRN COMPONENT ASSEMBLER-C Primary Care Provider Active Start: August 142022 Edward Gilmore MD Attending Provider Active Start: August 14, 2023 Team Status: Active Member Role Status Dates Manisha Marc APRN COMPONENT ASSEMBLER-C Primary Care Provider, Attending Provider Active Start: October 06, 2023 Team Status: Inactive Member Role Status Dates Manisha Marc APRN COMPONENT ASSEMBLER-C Primary Care Provider Active Start: October 082023 End: October 08, 2023 Gwen Cox DO Attending Provider Active Start: October 08, 2023 End: October 08, 2023 Team Status: Active Member Role Status Dates Manisha Marc APRN COMPONENT ASSEMBLER-C Primary Care Provider, Attending Provider Active Start: October 30, 2023 Team Status: Inactive Member Role Status Dates Manisha Marc APRN COMPONENT ASSEMBLER-C Primary Care Provider, Attending Provider Active Start: November 03, 2023 End: November 03, 2023 Team Status: Active Member Role Status Dates Manisha Marc APRN COMPONENT ASSEMBLER-C Primary Care Provider Active Start: August Edward Gilmore MD Attending Provider Active Start: September 10, 2023 Team Status: Inactive Member Role Status Dates Manisha Marc APRN COMPONENT ASSEMBLER-C Primary Care Provider Active Start: November 26, 2023 End: November 26, 2023 Celio Mullins DO Attending Provider Active St art: November 26, 2023 End: November 26, 2023 Team Status: Active Member Role Status Dates Manisha Marc APRN COMPONENT ASSEMBLER-C Primary Care Provider Active Start: January 01, 2024 Edward Gilmore MD Attending Provider Active Start: January 01, 2024 Team Status: Active Member Role Status Dates Manisha Marc APRN COMPONENT ASSEMBLER-C Primary Care Provider Active Start: April 03, 2024 Edward Gilmore MD Attending Provider Active Start: April 03, 2024 Team Status: Active Member Role Status Dates Manisha Marc APRN COMPONENT ASSEMBLER-C Primary Care Provider Active Start: April 12, 2024 Jaymie Griffin DO Attending Provider Active Start: April 12, 2024 Team Status: Inactive Member Role Status Dates Manisha Marc APRN COMPONENT ASSEMBLER-C Primary Care Provider, Attending Provider Active Start: April 21, 2024 End: April 21, 2024 Team Status: Active Member Role Status Dates Manisha Marc APRN COMPONENT ASSEMBLER-C Primary Care Provider Active Start: April 12, 2024 Agusto Rojas DO Attending Provider Active Sta rt: April 12, 2024 Team Status: Active Member Role Status Dates Manisha Marc APRN COMPONENT ASSEMBLER-C Primary Care Provider Active Start: April 15, 2024 Agusto Rojas DO Attending Provider Active Sta rt: April 15, 2024 Team Status: Active Member Role Status Dates Manisha Marc APRN COMPONENT ASSEMBLER-C Primary Care Provider Active Start: April 192023 Edward Gilmore MD Attending Provider Active Start: May 13, 2024 Team Status: Active Member Role Status Dates Manisha Marc APRN COMPONENT ASSEMBLER-C Primary Care Provider, Attending Provider Active Start: June 07, 2024 Team Status: Inactive Member Role Status Dates Manisha Marc APRN COMPONENT ASSEMBLER-C Primary Care Provider Active Start: May End: June 15, 2024 Casandra Hassan APRN Attending Provider Active Start: June 15, 2024 End: June 15, 2024 Team Status: Inactive Member Role Status Dates Casandra Hassna APRN Attending Provider Active Start: June 15, 2024 End: June 15, 2024 Team Status: Active Member Role Status Dates Hilaria Elizondo CMA Attending Provider Active Start: June 18, 2024 Team Status: Inactive Member Role Status Dates Manisha aMrc APRN COMPONENT ASSEMBLER-C Primary Care Provider, Attending Provider Active Start: June 21, 2024 End: June 21, 2024 Is Technician Relationship Specialty Start Date End Date Thaddeus Rod MD [address] [place] [id number] PCP - General Family Medicine 04/24/23 Is Technician Relationship Specialty Start Date End Date Thaddeus Rod MD [address] [place] [id number] PCP - General Family Medicine 04/24/23 Is Technician Relationship Specialty Start Date End Date Thaddeus Rod MD [address] [place] [id number] PCP - General Family Medicine 04/24/23 Team Status: Inactive Member Role Status Dates Manisha Marc APRN COMPONENT ASSEMBLER-C Primary Care Provider, Attending Provider Active Start: June 25, 2024 End: June 25, 2024 Team Status: Inactive Member Role Status Dates Manisha Marc APRN COMPONENT ASSEMBLER-C Attending Provider Act rafal Start: June 25, 2024 End: June 25, 2024 Is Technician Relationship Specialty Start Date End Date Thaddeus Rod MD [address] [facility] [place] [address] PCP - General Family Medicine 04/24/23 Is Technician Relationship Specialty Start Date End Date Thaddeus Rod MD [address] [place] [facility] [place] [address] PCP - [facility] Medicine 04/24/23 Is Technician Relationship Specialty Start Date End Date Thaddeus Rod MD [address] [facility] [place] [address] PCP - [facility] Medicine 04/24/23 Team Status: Active Member Role Status Dates Tiffanie Villalobos MD Attending Provider Active St art: June 29, 2024 Team Status: Active Member Role Status Dates Manisha Marc APRN COMPONENT ASSEMBLER-C Primary Care Provider Active Start: August 032023 Edward Gilmore MD Attending Provider Active Start: August 03, 2024 Team Status: Inactive Member Role Status Dates Manisha Marc APRN COMPONENT ASSEMBLER-C Primary Care Provider, Attending Provider Active Start: August 09, 2024 End: August 09, 2024 Team Status: Inactive Member Role Status Dates Manisha Marc APRN COMPONENT ASSEMBLER-C Attending Provider Active Start: July End: August 09, 2024 PHYSICIAN NO FAMILY Primary Care Provider Active Start: August 09, 2024 End: August 09, 2024 Team Status: Inactive Member Role Status Dates Hilaria Burgos DO Attending Provider Active St art: August 19, 2024 End: August 19, 2024 Manisha Marc APRN COMPONENT ASSEMBLER-C Primary Care Provider Active Start: August 19, 2024 End: August 19, 2024 Team Status: Active Member Role Status Dates Hilaria Burgos DO Attending Provider, Other Provider Active Start: August 19, 2024 Manisha Marc APRN COMPONENT ASSEMBLER-C Primary Care Provider Active Start: August Team Status: Inactive Member Role Status Dates Manisha Marc APRN COMPONENT ASSEMBLER-C Primary Care Provider, Attending Provider Active Start: August 24, 2024 End: August 24, 2024 Team Status: Active Member Role Status Dates Manisha Marc APRN COMPONENT ASSEMBLER-C Primary Care Provider Active Start: August 24, 2024 Edward Gilmore MD Attending Provider Active Start: August 24, 2024 Team Status: Inactive Member Role Status Dates Manisha Marc APRN COMPONENT ASSEMBLER-C Primary Care Provider Active Start: August End: August 28, 2024 Viry Holder APRN Attending Provider Active S tart: August 28, 2024 End: August 28, 2024 Team Status: Active Member Role Status Dates Manisha Marc APRN COMPONENT ASSEMBLER-C Primary Care Provider Active Start: August Edward Gilmore MD Attending Provider Active Start: August 27, 2024 Team Status: Inactive Member Role Status Dates Manisha Marc APRN COMPONENT ASSEMBLER-C Primary Care Provider Active Start: September 272024 End: September 27, 2024 Viry Holder APRN Attending Provider Active S tart: September 27, 2024 End: September 27, 2024 Is Technician Relationship Specialty Start Date End Date Thaddeus Rod MD [address] [place] [address] PCP - General Family Medicine 04/24/23 Team Status: Active Member Role Status Dates Manisha Marc APRN COMPONENT ASSEMBLER-C Primary Care Provider Active Start: October 122024 Tiffanie Villalobos MD Attending Provider Active St art: October 12, 2024 Team Status: Active Member Role Status Dates Manisha Marc APRN COMPONENT ASSEMBLER-C Primary Care Provider Active Start: November 03, 2024 Marko Celestina , DO Attending Provider Active Start : November 03, 2024 Team Status: Active Member Role Status Dates Manisha Marc APRN COMPONENT ASSEMBLER-C Primary Care Provider Active Start: November 09, 2024 Edward Gilmore MD Attending Provider Active Start: November 09, 2024 Team Status: Inactive Member Role Status Dates Manisha Marc APRN COMPONENT ASSEMBLER-C Primary Care Provider, Attending Provider Active Start: November 15, 2024 End: November 15, 2024 Team Status: Active Member Role Status Dates Manisha Marc APRN COMPONENT ASSEMBLER-C Primary Care Provider Active Start: December 28, 2024 Tiffanie Villalobos MD Attending Provider Active St art: December 28, 2024 Team Status: Active Member Role Status Dates Manisha Marc APRN COMPONENT ASSEMBLER-C Primary Care Provider Active Start: February 08, 2025 Edward Gilmore MD Attending Provider Active Start: February 08, 2025 Team Status: Inactive Member Role Status Dates Manisha Marc APRN COMPONENT ASSEMBLER-C Primary Care Provider Active Start: February 17, 2025 End: February 17, 2025 Manisha Marc APRN COMPONENT ASSEMBLER-C Attending Provider Act rafal Start: February 17, 2025 End: February 17, 2025 Team Status: Inactive Member Role Status Dates Manisha Marc APRN COMPONENT ASSEMBLER-C Attending Provider Act rafal Start: February 17, 2025 End: February 17, 2025 Team Status: Active Member Role Status Dates Manisha Marc APRN COMPONENT ASSEMBLER-C Primary Care Provider Active Start: February 16, 2025 Edward Gilmore MD Attending Provider Active Start: February 16, 2025 Team Status: Inactive Member Role Status Dates Manisha Marc APRN COMPONENT ASSEMBLER-C Primary Care Provider Active Start: February 22, 2025 End: February 22, 2025 Sakina Real APRN Attending Provider Active Start: February 22, 2025 End: February 22, 2025 Team Status: Active Member Role Status Dates Manisha Marc APRN COMPONENT ASSEMBLER-C Primary Care Provider Active Start: February 22, 2025 Edward Gilmore MD Attending Provider Active Start: February 22, 2025 Team Status: Inactive Member Role Status Dates Manisha Marc APRN COMPONENT ASSEMBLER-C Primary Care Provider Active Start: March 03, 2025 End: March 03, 2025 Syed Leonard MD Attending Provider Active Star t: March 03, 2025 End: March 03, 2025 Team Status: Active Member Role Status Dates Manisha Marc APRN COMPONENT ASSEMBLER-C Primary Care Provider Active Start: March 02, 2025 Edward Gilmore MD Attending Provider Active Start: March 02, 2025 Team Status: Inactive Member Role Status Dates Manisha Marc APRN COMPONENT ASSEMBLER-C Primary Care Provider Active Start: March 11, 2025 End: March 11, 2025 Casandra Hassan APRN Attending Provider Active Start: March 11, 2025 End: March 11, 2025 Team Status: Inactive Member Role Status Dates Mnaisha Marc APRN COMPONENT ASSEMBLER-C Primary Care Provider Active Start: March 22, 2025 End: March 22, 2025 Manisha Marc APRN COMPONENT ASSEMBLER-C Attending Provider Act rafal Start: March 22, 2025 End: March 22, 2025 Team Status: Active Member Role Status Dates Manisha Marc APRN COMPONENT ASSEMBLER-C Primary Care Provider Active Start: March 12, 2025 Edward Gilmore MD Attending Provider Active Start: March 12, 2025 Team Status: Inactive Member Role Status Dates Manisha Marc APRN COMPONENT ASSEMBLER-C Primary Care Provider Active Start: March 29, 2025 End: March 29, 2025 Casandra Hassan APRN Attending Provider Active Start: March 29, 2025 End: March 29, 2025 Team Status: Active Member Role Status Dates Manisha Marc APRN COMPONENT ASSEMBLER-C Primary Care Provider Active Start: March 26, 2025 Edward Gilmore MD Attending Provider Active Start: March 26, 2025 Team Status: Inactive Member Role Status Dates Manisha Sellers DNP Attending Provider Active S tart: April 15, 2025 End: April 15, 2025 Manisha Marc APRN COMPONENT ASSEMBLER-C Primary Care Provider Active Start: April 15, 2025 End: April 15, 2025 Team Status: Active Member Role Status Dates Manisha Marc APRN COMPONENT ASSEMBLER-C Primary Care Provider Active Start: April 07, 2025 Edward Gilmore MD Attending Provider Active Start: April 07, 2025 Team Status: Active Member Role Status Dates Manisha Marc APRN COMPONENT ASSEMBLER-C Primary Care Provider Active Start: April 15, 2025 Aidan Billings MD Attending Provider Activ e Start: April 15, 2025 Team Status: Inactive Member Role Status Dates Manisha Marc APRN COMPONENT ASSEMBLER-C Primary Care Provider Active Start: April 212024 End: April 21, 2025 Em Garcia APRN COMPONENT ASSEMBLER-C Attending Provider Active Start: April End: April 21, 2025 Team Status: Active Member Role Status Dates Manisha Marc APRN COMPONENT ASSEMBLER-C Primary Care Provider Active Start: April 182024 Edward Gilmore MD Attending Provider Active Start: May 06, 2025 Team Status: Inactive Member Role Status Dates Manisha Marc APRN COMPONENT ASSEMBLER-C Primary Care Provider Active Start: April 192024 End: May 13, 2025 Manisha Marc APRN COMPONENT ASSEMBLER-C Attending Provider Active Start: April End: May 13, 2025 Team Status: Active Member Role Status Dates Manisha Marc APRN COMPONENT ASSEMBLER-C Primary Care Provider Active Start: April 192024 Edward Gilmore MD Attending Provider Active Start: May 10, 2025 Team Status: Inactive Member Role Status Dates Manisha Marc APRN COMPONENT ASSEMBLER-C Primary Care Provider Active Start: May 25, 2025 End: May 25, [address] Attending Provider Active S tart: May 25, 2025 End: May 25, 2025 Manpreet Rao MD Other Provider Active Start: O 2024 End: May 25, 2025 Team Status: Inactive Member Role Status Dates Manisha Marc APRN COMPONENT ASSEMBLER-C Primary Care Provider Active Start: May 25, 2025 End: May 25, 2025 Manisha Marc APRN COMPONENT ASSEMBLER-C Referring Provider Act rafal Start: May 25, 2025 End: May 25, 2025 Manpreet Rao MD Attending Provider Active Star t: May 25, 2025 End: May 25, 2025 Team Status: Active Member Role Status Dates Manisha Marc APRN COMPONENT ASSEMBLER-C Primary Care Provider Active Start: May 25, [address] Attending Provider Active S tart: May 25, 2025 Manpreet Rao MD Other Provider Active Start: O ctober 2024 Team Status: Inactive Member Role Status Dates Manisha Marc APRN COMPONENT ASSEMBLER-C Primary Care Provider Active Start: May 25, 2025 End: May 25, [address] Attending Provider Active S tart: May 25, 2025 End: May 25, 2025 Manpreet Rao MD Other Provider Active Start: O ctober 2024 Team Status: Active Member Role/Relationship Status Dates Manisha Marc APRN COMPONENT ASSEMBLER-C Primary Care Provider Active Team Status: Inactive Member Role/Relationship Status Dates Manisha Marc APRN COMPONENT ASSEMBLER-C Primary Care Provider Active Start: March 11, 2025 End: March 11, 2025 Casandra Hassan APRN Attending Provider Active Start: March 11, 2025 End: March 11, 2025 Team Status: Inactive Member Role/Relationship Status Dates Manisha Marc APRN COMPONENT ASSEMBLER-C Primary Care Provider Active Start: March 22, 2025 End: March 22, 2025 Manisha Marc APRN COMPONENT ASSEMBLER-C Attending Provider Act rafal Start: March 22, 2025 End: March 22, 2025 Team Status: Inactive Member Role/Relationship Status Dates Manisha Marc APRN COMPONENT ASSEMBLER-C Primary Care Provider Active Start: March 29, 2025 End: March 29, 2025 Casandra Hassan APRN Attending Provider Active Start: March 29, 2025 End: March 29, 2025 Team Status: Inactive Member Role/Relationship Status Dates Manisha Sellers DNP Attending Provider Active S tart: April 15, 2025 End: April 15, 2025 Manisha Marc APRN COMPONENT ASSEMBLER-C Primary Care Provider Active Start: April 15, 2025 End: April 15, 2025 Team Status: Active Member Role/Relationship Status Dates Manisha Marc APRN COMPONENT ASSEMBLER-C Primary Care Provider Active Start: April 15, 2025 Aidan Billings MD Attending Provider Activ e Start: April 15, 2025 Team Status: Inactive Member Role/Relationship Status Dates Manisha Marc APRN COMPONENT ASSEMBLER-C Primary Care Provider Active Start: April 212024 End: April 21, 2025 Em Garcia APRN COMPONENT ASSEMBLER-C Attending Provider Active Start: April End: April 21, 2025 Team Status: Inactive Member Role/Relationship Status Dates Manisha Marc APRN COMPONENT ASSEMBLER-C Primary Care Provider Active Start: April 192024 End: May 13, 2025 Manisha Marc APRN COMPONENT ASSEMBLER-C Attending Provider Active Start: April End: May 13, 2025 Team Status: Inactive Member Role/Relationship Status Dates Manisha Marc APRN COMPONENT ASSEMBLER-C Primary Care Provider Active Start: May 25, 2025 End: May 25, [address] Attending Provider Active S tart: May 25, 2025 End: May 25, 2025 Manpreet Rao MD Other Provider Active Start: O ct2024 End: May 25, 2025 Team Status: Inactive Member Role/Relationship Status Dates Manisha Marc APRN COMPONENT ASSEMBLER-C Primary Care Provider Active Start: May 25, 2025 End: May 25, 2025 Manisha Marc APRN COMPONENT ASSEMBLER-C Referring Provider Act rafal Start: May 25, 2025 End: May 25, 2025 Manpreet Rao MD Attending Provider Active Star t: May 25, 2025 End: May 25, 2025 Team Status: Active Member Role/Relationship Status Dates Manisha Marc APRN COMPONENT ASSEMBLER-C Primary Care Provider Active Start: May Edward Gilmore MD Attending Provider Active Start: May 31, 2025 Team Status: Inactive Member Role/Relationship Status Dates Manisha Marc APRN COMPONENT [employer]SEM[employer]ER-C Primary Care Provider Active Start: May End: June 03, 2025 Manisha Sellers DNP Attending Provider Active S tart: June 03, 2025 End: June 03, 2025 Goals (unrecognized section and content) Goals [...] BE BASED ON THE PRIMARY CLINICAL RECORDS. [facility] [employer] [facility]. provides no warranty or guarantee of the accuracy or completeness of information in this document.
[2025-06-03 12:48] LABS: Hematocrit 42.5 % (36.0-48.0); Hemoglobin 13.7 g/dL (12.0-16.0); Immature Granulocytes Abs Auto 0.01 10^3/uL (0.00-0.03); Immature Granulocytes Pct Auto 0.1 % (0.0-0.5); Lymphocytes Absolute Auto 2.9 10^3/uL (1.2-3.8); Mean Corpuscular HGB Conc 32.2 g/dL (29.9-35.2); Mean Corpuscular Hemoglobin 28.8 pg (26.7-34.0); Mean Corpuscular Volume 89.3 fL (81.0-99.0); Platelet Count 239 10^3/uL (150-450); Red Blood Count 4.76 10^6/uL (4.20-5.40); White Blood Count 7.1 10^3/uL (4.0-11.0)
[2025-06-03 13:12] LABS: Alanine Aminotransferase 65 U/L (14-59); Albumin Globulin Ratio 0.8; Albumin Level 3.5 g/dL (3.4-5.0); Alkaline Phosphatase 82 U/L (46-116); Anion Gap 11.1; Aspartate Amino Transferase 40 U/L (15-37); Blood Urea Nitrogen 7.0 mg/dL (7.0-18.0); Calcium 8.8 mg/dL (8.5-10.1); Carbon Dioxide 28.1 mmol/L (21.0-32.0); Chloride 106 mmol/L (98-107); Estimated GFR (African America >60 (>=60 mL/min/1.73m^2); Estimated GFR (Non-African Ame >60 (>=60 mL/min/1.73m^2); Globulin 4.5 g/dL; Glucose 105 mg/dL (74-106); Potassium 4.2 mmol/L (3.5-5.1); Sodium 141 mmol/L (136-145); Total Protein 8.0 g/dL (6.4-8.2)
[2025-06-03 13:27] LABS: Iron 47.0 ug/dL (50.0-170.0); Percent Iron Saturation 13.8 %; Total Iron Binding Capacity 340.0 ug/dL (250.0-450.0)
[2025-06-03 13:42] LABS: Ferritin 114.0 ng/mL (8.0-252.0)
[2025-06-04 06:12] LABS: Vitamin B12 1006 pg/mL (232-1245)
== END 2025-06-03 11:19 | disposition home or self-care (01) ==
PROVIDERS: PCP Nurse Practitioner Family; Visit Provider Internal Medicine Hematology & Oncology
DX: D72.829 Elevated white blood cell count, unspecified (principal); D64.9 Anemia, unspecified; K90.9 Intestinal malabsorption, unspecified; D50.9 Iron deficiency anemia, unspecified
CPT/HCPCS: 36415; 80053; 82306; 82607; 82728; 83540; 83550; 85025; 85652; 86140

== ENCOUNTER 2025-06-07 08:34 | Outpatient (RCR) | payer OTHER, SELFPAY | END 2025-06-17 23:59 | disposition home or self-care (01) | LOC: HEMC 08:34 | PROVIDERS: PCP Nurse Practitioner Family; Visit Provider Internal Medicine Hematology & Oncology | DX: D64.9 Anemia, unspecified (principal); D50.9 Iron deficiency anemia, unspecified; K90.9 Intestinal malabsorption, unspecified; K21.9 Gastro-esophageal reflux disease without esophagitis; I10 Essential (primary) hypertension; R00.0 Tachycardia, unspecified; E28.2 Polycystic ovarian syndrome; K76.0 Fatty (change of) liver, not elsewhere classified; Z87.440 Personal history of urinary (tract) infections; Z90.49 Acquired absence of other specified parts of digestive tract; Z80.3 Family history of malignant neoplasm of breast | CPT/HCPCS: G0463 ==